=== PATIENT | female | born 1950 | race Caucasian/White ===

== ENCOUNTER → 2017-10-27 00:49 | Outpatient (CLI) | payer MEDICARE, BC, SELFPAY ==
--- NOTE | 2017-10-27 08:50 | DI.REPORT_ITS ---
SYMPTOMS/DIAGNOSIS: SCREENING, Z12.31, PREVENTATIVE CARE, Z00.00 MAMMOGRAM: Mammograms were interpreted according to the usual protocol including computer analysis with CAD system, tomosynthesis and C view imaging. The breasts are of moderate density with fairly symmetrical distribution of fibroglandular tissue. No dominant mass or clumped microcalcification is identified in either breast. The current examination is compared with previous examinations including October 2016 and there has been no gross interval change in appearance in comparison with the previous studies. CONCLUSION: No specific evidence of malignancy at this time. Routine screening examinations are suggested at yearly intervals due to the family history of breast carcinoma. Category I. Breast density Category B. MQSA ASSESSMENT OF FINDINGS: Negative. Category 1. Patient will receive a letter notifying them of these results. BI-RADS category B. There are scattered areas of fibroglandular density.
== END ==
PROVIDERS: PCP Family Medicine; Visit Provider Family Medicine
DX: Z12.31 Encounter for screening mammogram for malignant neoplasm of breast (principal); Z80.3 Family history of malignant neoplasm of breast
CPT/HCPCS: 77063; 77067

== ENCOUNTER → 2018-09-26 13:32 | Outpatient (BNVA) | payer MEDICARE, BC, SELFPAY | PROVIDERS: PCP Family Medicine; Referring Provider Family Medicine; Visit Provider Student in an Organized Health Care Education/Training Program | DX: M16.12 Unilateral primary osteoarthritis, left hip (principal); I10 Essential (primary) hypertension | CPT/HCPCS: 99214 ==

== ENCOUNTER 2018-09-29 01:23 | Outpatient (CLI) | payer MEDICARE, BC, SELFPAY ==
--- NOTE | 2018-09-29 06:57 | DI.RAD_ITS ---
SYMPTOM/DIAGNOSIS: PRIMARY LOCALIZED OSTEOARTHRITIS LT HIP M16.12 FLUOROSCOPY LEFT HIP: Fluoroscopy Time: .04 Fluoroscopy was provided for Dr. Khan for guidance of left hip injection. Hard copy images show a needle projecting from the lateral aspect in to the left hip joint and injection of contrast in to the joint space. Please see procedure note for details.
[2018-09-29] MEDS: Bupivacaine 0.5% Pres-Free 10 ML VIAL 6 ML IJ (09:51)
[2018-09-29] MEDS: Omnipaque 300 MG/ML 10 ML BTL IJ (09:52)
[2018-09-29] MEDS: methylPREDNISolone ACETATE 80 MG/ML VIAL IM (09:53)
--- NOTE | 2018-09-30 08:42 | W.PROCNOTE ---
Date of service: 09/29/18 Time of Service: 09:43 Procedure Note Date of procedure: 09/29/18 Procedure: Left Hip Injection with Fluoroscopic Guidance Surgeon/Proceduralist/Physician: Freddie Khan Procedure Diagnosis: Left Hip Osteoarthritis Procedure Indications: Luna has had persistent pain of the LEFT hip and groin. Noninvasive measures have been tried. To serve as both diagnostic and therapeutic, an injection under fluoroscopy was recommended. I had discussed the risks of the procedure and the patient elected to proceed. Procedure Description: Luna was greeted in the flouroscopy room. The correct side was identified and the consent was reviewed with the patient and signed. The patient was then placed in the supine position on the fluoroscopy table. The LEFT hip was then prepped with Chloraprep. The anterolateral injection starting point was identiifed by bony landmarks and fluoroscopy. The skin and soft tissue in the tract of the injection was anesthetized with 1% Lidocaine. A spinal needle was then inserted deep into the hip joint at the level of the lateral femoral neck under fluoroscopic guidance. A small amount of Omnipaque solution was injected to confirm intraarticular placement. Once confirmed, the hip was injected with 6cc of 0.5% Bupivicaine and 80mg of Depo-Medrol. A bandaid was placed on the injection site. The patient tolerated the procedure well and noted improvement in pre-injection pain.
== END 2018-09-29 01:43 ==
PROVIDERS: PCP Family Medicine; Visit Provider Student in an Organized Health Care Education/Training Program
DX: M16.12 Unilateral primary osteoarthritis, left hip (principal); M25.562 Pain in left knee
CPT/HCPCS: 20610; 77002; J1040

== ENCOUNTER 2018-11-03 15:38 | Outpatient (REF) | payer MEDICARE, BC, SELFPAY ==
[2018-11-03 21:37] LABS: HCT 39.1 % (36.0-46.0); HGB 12.4 g/dL (12.0-15.5)
[2018-11-03 21:56] LABS: Anion Gap 8.2 mmol/L (3-11); BUN 19 mg/dL (7-18); CO2 28.8 mmol/L (21.0-32.0); CREATININE 0.99 mg/dL (0.55-1.02); Calcium 8.6 mg/dL (8.5-10.1); Chloride 107 mmol/L (98-107); Estimated GFR 55.45 (mL/min/1.73m2); Glucose 75 mg/dL (70-100); Potassium 4.4 mmol/L (3.5-5.1); Sodium 144 mmol/L (136-145); TSH (W/Ref FT4) 1.27 uIU/mL (0.36-3.74)
== END 2018-11-03 15:58 ==
LOC: NCHCN 15:38
PROVIDERS: PCP Family Medicine; Visit Provider Family Medicine
DX: I10 Essential (primary) hypertension (principal)
CPT/HCPCS: 80048; 84443; 85014; 85018

== ENCOUNTER 2018-11-28 00:25 | Outpatient (CLI) | payer MEDICARE, BC, SELFPAY ==
--- NOTE | 2018-11-28 12:16 | DI.MAMMO_ITS ---
EXAM: MG MAMMO SCREENING CLINICAL HISTORY: SCREENING , [facility] Z00.00. TECHNIQUE: Mammograms were interpreted according to the usual protocol including computer analysis w PowerPractical CAD system, tomosynthesis and C-view imaging. COMPARISON: No exams were available for comparison FINDINGS: The breast tissue is of moderate radiodensity. There is no dominant mass. There are no suspicious ca lcifications and there has been no interval change when compared with the prior examination. IMPRESSION: No evidence of malignancy, category 1, yearly screening mammography is recommended. Breast density c ategory B BI-RADS Cat 1 - Negative Breast Density - Category B - Scattered areas of fibroglandular density
== END 2018-11-28 00:45 ==
PROVIDERS: PCP Family Medicine; Visit Provider Family Medicine
DX: Z12.31 Encounter for screening mammogram for malignant neoplasm of breast (principal)
CPT/HCPCS: 77063; 77067

== ENCOUNTER 2018-12-09 08:39 | Outpatient (CLI) | payer MEDICARE, BC, SELFPAY ==
--- NOTE | 2018-12-09 08:21 | DI.RAD_ITS ---
EXAM: XR PELVIS AP INDICATION: pre ARIEL planning. COMPARISON: RT HIP COMPLETE AP PELVIS from 11/29/2015 TECHNIQUE: 2D digital imaging was performed. FINDINGS: AP view of the hips and pelvis was obtained. There is marked loss of cartilaginous joint spaces of b oth hips with very prominent hypertrophic acetabular changes and associated femoral head hypertrophic osteophytes noted as well. Greater trochanters of the femurs also show osteophyte formation. There is subchondral sclerosis and cyst formation of the acetabula and femoral heads. IMPRESSION: Severe DJD both hips.
== END 2018-12-09 08:59 ==
PROVIDERS: PCP Family Medicine; Referring Provider Family Medicine; Visit Provider Student in an Organized Health Care Education/Training Program
DX: M25.551 Pain in right hip (principal); M25.552 Pain in left hip; M16.0 Bilateral primary osteoarthritis of hip
CPT/HCPCS: 99213; 72170

== ENCOUNTER 2018-12-21 15:13 | Outpatient (REF) | payer MEDICARE, BC, SELFPAY | END 2018-12-21 15:33 | LOC: NCHCN 15:13 | PROVIDERS: PCP Family Medicine; Visit Provider Physician Assistant Medical | DX: N76.0 Acute vaginitis (principal) | CPT/HCPCS: 87480; 87510; 87660 ==

== ENCOUNTER 2019-01-17 12:48 | Outpatient (CLI) | payer MEDICARE, BC, SELFPAY ==
[2019-01-17 14:16] LABS: HGB 12.6 g/dL (12.0-15.5); Mean Corp. HGB Concentration 30.7 g/dL (32.0-36.0); Mean Corpuscular Hemoglobin 28.1 pg (27.0-33.0); Mean Corpuscular Volume 91.3 fL (80-95); Mean Platelet Volume 9.7 fL (8.0-11.0); Platelet Count 245 x1000/uL (130-400); RBC 4.49 m/cumm (4.00-5.20); RBC Distribution Width 13.7 % (11.7-14.6); White Blood Cell Count 6.02 k/cumm (4.4-10.8)
[2019-01-17 15:17] LABS: BUN 16 mg/dL (7-18); CREATININE 1.09 mg/dL (0.55-1.02); Calcium 8.7 mg/dL (8.5-10.1); Chloride 106 mmol/L (98-107); Estimated GFR 49.62 (mL/min/1.73m2); Glucose 96 mg/dL (70-100); Sodium 141 mmol/L (136-145)
== END 2019-01-17 13:08 ==
PROVIDERS: PCP Family Medicine; Visit Provider Student in an Organized Health Care Education/Training Program
DX: M16.12 Unilateral primary osteoarthritis, left hip (principal); I10 Essential (primary) hypertension; R06.02 Shortness of breath; Z01.818 Encounter for other preprocedural examination
CPT/HCPCS: 36415; 80048; 85027; 86850; 86900; 86901

== ENCOUNTER 2019-01-25 10:14 | Inpatient (IN) | payer MEDICARE, BC, SELFPAY ==
--- NOTE | 2019-01-17 17:34 | CMPROGNOTE_ITS ---
- If Service Date Differs Date of service: 01/17/19 Time of Service: 17:34 Care Management Progress Note JESÚS met with Luna at her pre op appointment for a total L Hip replacement by Dr. Khan, scheduled for 01/25/2019. She reported that she has been having a lot of pain which has made it difficult to walk, which is how she gets her exercise. Luna lives in [place] with her , Jarod. Their home is a single level with 2-3 steps up from the garage into the home. They have a shower bench, but not a raised toilet. They have two adult daughters, Taylor and Martha, who live locally and are identified by Luna as very supportive. 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 She is independent at baseline with no current services in the community. Luna's PCP is Lolly Narvaez MD, at [facility]. She has [facility] and [employer] for insurance. She currently has use of a FWW, which was used by her elderly parents before they passed. CM recommended that her bring the walker in the day after her surgery for it to be cleared by PT. She has an advanced directive on file, with her listed as agent. CM told her about the Portal, which she declined. Her will transport her via private vehicle to and from [facility].
[2019-01-25] VITALS (18 sets, daily range): BP systolic 114–153; BP diastolic 52–82; PULSE 64–83; RESP 15–20; TEMP 36–36.9; O2SAT 91–97
[2019-01-25] MEDS: Lactated Ringers 1,000 ML 80 ML IV ×3 (06:45→23:00)
[2019-01-25] MEDS: Celecoxib 200 MG CAP 400 MG PO (06:52)
[2019-01-25] MEDS: Acetaminophen 500 MG TAB 1000 MG PO ×3 (06:52→20:04)
--- NOTE | 2019-01-25 07:15 | DI.RAD_ITS ---
EXAM: XR HIP LT IN OR CLINICAL HISTORY: OA LEFT HIP. TECHNIQUE: 2D and realtime digital imaging was performed. COMPARISON: No exams were available for comparison FINDINGS: Fluoroscopy was provided for Dr. Khan in the OR. A single hard copy image shows placement of a left hip prosthesis. The components appear well aligned. FLUORO TIME: 31.8 seconds
[2019-01-25] MEDS: ceFAZolin 2 GM/50 ML BAG IVPB (07:50)
[2019-01-25] MEDS: Bupivacaine 0.25% Pres-Free 30 ML VIAL (08:25)
[2019-01-25] MEDS: Ketorolac 30 MG/ML VIAL (08:25)
[2019-01-25] MEDS: Normal Saline 20 ML VIAL (08:45)
--- NOTE | 2019-01-25 10:14 | ROE_ITS ---
Date of service: 01/25/19 Time of Service: 10:14 Operative Note Operative Note DATE OF PROCEDURE: 01/25/19 PRE-OP DIAGNOSIS: Left Hip Osteoarthritis POST-OP DIAGNOSIS: same PROCEDURE: Left Anterior Total Hip Arthroplasty SURGEON: Freddie Khan FO[employer] SERVICE WORK[employer] [facility]: [facility] ANESTHESIA: spinal ESTIMATED BLOOD LOSS: 300 PATHOLOGY: none sent COMPLICATIONS: None Patient was transported to: PACU Patient's condition: stable Implants: 1. Depuy [place] Acetabular Component, 52mm 2. Depuy Acetabular Liner, 98y07ml 3. Depuy Corail Coxa Vara Femoral Stem, Size 12 4. Depuy Altrx Ceramic Femoral Head, Size 36+5mm Indications: I have seen Luna in clinic for symptoms of hip arthritis, confirmed with radiographic findings. Luna has exhausted nonoperative methods and was having significant limitations in daily function and desired better function and less pain. I discussed the technical details of a hip replacement. I explained the risks of the procedure to include, but not limited to, bleeding, infection, pain, stiffness, fracture, damage to nerves and vessels, damage to muscles and tendons, loosening, instability, leg length inequality, need for repeat procedure, blood clot and cardiopulmonary demise. Despite these risks, she elected to proceed. Findings: There was significant signs of arthritis throughout the hip. There were acetabular and lateral neck osteophytes. Procedure Description: Luna was greeted in the preoperative holding area where the correct side was identified and marked. The consent was reviewed with the patient and signed. The history and physical was updated. All questions were answered. Luna was taken back to the operating room. A spinal anesthestic was then administered. The patient was placed into the supine position on the operating room table. The patient was then positioned onto the ARCH table. Both feet were wrapped with Webrill cotton wrap along with Coban. The feet were placed in specialized boots for the ARCH table, well seated within the boot and secured. SCDs were applied. The patient was then slid down onto a peroneal post and the nonoperative leg was secured in a leg champagne attached to the table. The operative side was placed into the ARCH table attachment and bed height and positioning was secured. A preoperative AP pelvis was obtained to serve as a reference for determining leg lengths. Prophylactic antibiotics in the form of Cefazolin were administered. 1g of Tranxemic Acid was given intravenously within 30 minutes of incision. The left leg was then prepped with Chloraprep and draped in a standard fashion. A second prep was performed prior to placing the final shower-curtain type drape with Iodine impregnated skin protection. A timeout to confirm correct identity, side and site, procedure, allergies, anesthesia, and medical concerns was performed. An obliquely oriented incision was made starting lateral to the ASIS and running distal over the Tensor Fascia Ching (TFL) muscle belly toward the fibular head, approximately 10cm. The skin and soft tissue was dissected sharply, through Rosa?s fascia, and to the fascia of the TFL. With the fascia and superior border of the IT band identified, the fascia was incised with a new knife just above any perforators from the IT band. The TFL muscle belly was bluntly dissected away from the fascia and moved laterally. The fat between TFL and rectus was identified to ensure the dissection was not within the TFL. Blunt dissection created space between abductors and the capsule and retractor was placed over the lateral femoral neck. The fibers of the rectus femoris tendon were identified and these were freed from the anterior capsule. A second cobra retractor was placed around the medial femoral neck. The TFL was further retracted laterally to show the deep fascia. Careful dissection through this layer identified three main crossing vessels of the lateral femoral circumflex. These were cauterized in multiple locations and then cut without any noticeable bleeding. The TFL was further released bluntly from the deep fascia to expose anterior hip capsule and fat The Loi orthopaedic retractor was then placed beneath the TFL and against sartorius and medial soft tissues to protect and retract the soft tissues. A T-capsulotomy was then performed starting at the superior lateral acetabulum and moving distally to the intertrochanteric ridge. These capsular flaps were tagged with a No. 1 Ethibond and elevated from within. The capsular flaps were released to the shoulder of the lateral neck and to the lesser trochanter to give excellent visualization of the proximal femur. A neck osteotomy was performed using an oscillating saw based on preoperative templates. This cut started in the shoulder and of the lateral neck and exited medially. The saw was at all times directed medially to avoid injury to the greater trochanter. 6cm of traction was applied to the leg and the osteotomy opened. The femoral head was removed with a corkscrew, making sure to protect the TFL on its exit. This was measured on the back table to determing the starting reamer size. Portions of the rectus obscuring visualization were minimally elevated off the superior acetabulum. An anterior retractor was placed over the anterior wall between capsule and labrum and held with the Gripper retraction system. A posterior retractor was placed similarly. This provided excellent visualization. The contents of the cotyloid fossa were removed with electrocautery and the labrum was removed with a knife. There was a notable floor osteophyte. There was significant chondromalacia of the superior acetabulum. Acetabular reaming began with a 46mm reamer. This first reaming was directed anterior to posterior and medial to get down to the true floor. This was inspected and reamed until the true floor was reached. I then reamed sequentially up to a 52mm reamer where good fit was obtained. The larger reamers were oriented based on anatomical reference of the anterior and lateral reed to ensure proper abduction and anteversion. Positioning and size was confirmed with the fluoroscopy. A 52mm Depuy [place] acetabular component was selected. The deep tissues were irrigated. The acetabular component was then impacted in a position of about 40-45 degrees of abduction and 15-20 degrees of anteversion, using the patient?s anatomy as the ultimate landmark. Fluoroscopy was used to confirm this. There was excellent camera repairman of the acetabular component and the inserting handle was removed. The acetabular liner, Depuy [id number] polyethylene liner, was inserted and lined up with the tines of the acetabular component. There was no soft tissue interposition. The liner was then impacted into position and confirmed to be well-seated. A portion of the desiree-articular cocktail was then injected around the acetabulum into the capsule and periosteum. This cocktail consisted of 50cc of 0.25% Bupivicaine and 20cc of Exparel, expanded to a total of 120cc. Traction was released from the femur. The leg was rotated to 120 degrees. Any remaining medial capsule was released until the lesser trochanter was easily pal pable. A Ramos retractor was placed medially. The lateral capsule was further released into the shoulder to allow access to the greater trochanter. A Ramos retractor was placed over the greater trochanter which allowed the trochanter to flip in front of the capsule for excellent exposure. The leg was brought down into maximal extension and 20 degrees of adduction while ensuring there was no impingement on the acetabulum. Any remnant capsule within the trochanter was released. Piriformis and obturator externis were identified and protected. There was excellent access to the proximal femur. The lateral neck remnant was removed with a rongeur. A blunt canal probe was used to identify the canal and trajectory for later broaching. A box osteotome initiated the broach course. A small curved rasp and a curved curette were used to work laterally. Broaching then began with a size 8 Corail broach. This was inserted manually around the trochanter and into the canal before mallet blows. The broach was seated to the neck cut level based on the neck cut and the preoperative template. It seems that the initial cut was angled from anterior to posterior, being of appropriate height anteriorly but slightly over cut posteriorly. I decided to reference the anterior cortex leaving the posterior side proud. Sequential broaching was continued until a tight fit was obtained with good rotational control of the femur. A trial coxa vara neck was inserted along with a +5 trial head. The leg was brought out of extension and adduction and then reduced with traction and internal rotation. The leg was stable anteriorly in a position of 30 degrees of extension and 90 degrees of external rotation. Fluoroscopy was used to ensure there was no fracture and the stem was seated well. Leg lengths were checked with an AP pelvis and pelvic reference points. Joint point was utilized to help confirm appropriate leg length and offset. Once content with the desired offset and leg lengths, the leg was brought back into extension, external rotation and adduction. The periosteum and surrounding tissue was injected with remaining portion of the desiree-articular cocktail. The proximal femur was irrigated as well as the deep tissues. The Depuy Corail coxa vara stem, size 12, was then manually inserted into the proximal femur making sure to control rotation. It was then malleted into position with light blows, giving breaks to allow bone expansion and decrease risk of fracture. The selected Depuy Altrx Ceramic Head, size 36+5mm, was then placed onto the clean and dry trunnion and secured with impaction onto the tapered fit. The leg was brought back out of extension and adduction and reduced with traction and internal rotation. Stability was confirmed with no shuck at 90 degrees of external rotation and 30 degrees of extension. No impingement through range of motion arc. Final x-ray images were obtained with fluoroscopy to confirm adequate positioning and no intraoperative fracture. The deep tissues were thoroughly irrigated with a pulse lavage. The second dose of TXA 1g was administered intravenously. The capsule was then reapproximated with the previously placed Ethibond sutures. The TFL fascia was finally closed with a No. 2 Stratafix, barbed suture. Deep tissues were then reapproximated with 0 Vicryl and a running 2-0 Vicryl. The skin was closed with a running 4-0 Monocryl in a subcuticular fashion. This was reinforced with skin glue. A Mepilex silver dressing was applied. At the end of the case, all counts were correct. Luna was transferred to the hospital bed without difficulty and suffering no apparent complication. Luna has a good prognosis. Physical therapy will start today and without restrictions, weight-bearing as tolerated. Aspirin 81mg BID will be used for DVT prophylaxis.
[2019-01-25] MEDS: HYDROmorphone 2 MG/ML VIAL IVP ×2 (10:28→10:40)
[2019-01-25] MEDS: Normal Saline Flush 10 ML SYR IV (10:29)
[2019-01-25] MEDS: ceFAZolin 1 GM/50 ML BAG IVPB ×2 (14:02→21:58)
--- NOTE | 2019-01-25 14:37 | PT.INIE ---
Date of service: 01/25/19 Time of Service: 14:37 PT Notes Physical Therapy Inpatient Initial Evaluation Date: 01/25/2019 Referring Doctor: Freddie Khan MD PT Orders: PT CONSULT: S/P ortho surgery. S/P L anterior ARIEL Precautions: Fall. Standard. WBAT on L LE. Patient Profile/Admitting Diagnosis: Patient is a 68-year-old female status post left anterior total hip arthroplasty due to unilateral osteoarthritis of left hip on POD 0. PMHX: Hypertension (Chronic) Social History/Home Situation: Patient lives with in a ranch-style home with 2 steps to enter, rail on the L going up. 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 She is independent with all aspects of ADLs prior to surgery. Equipment Owned/DME: Standard walker Subjective: Patient is agreeable to a PT consult. She is pleasant and cooperative. She did mention still being numb on her R buttock area. She reported getting dizzy after walking some 20 feet of in-room distance with FWW. Dizziness abated once she rested back in bed. Denies headache and chest pain throughout PT consult. Objective: General Observation: Patient seen resting in bed. and daughter were present during PT consult. Mepilex Ag over surgical incision. Goff catheter in place. Spinal anesthesia puncture seen. Mental Status: Alert and oriented x 4 Pain: Reported mild aching pain on the L hip with strength testing ROM: Right Upper Extremity: Shoulder Flexion WFL. Shoulder abduction WFL. Elbow flexion WFL. Wrist flexion WFL. Opening and closing of hand WFL. Left Upper Extremity: Shoulder Flexion WFL. Shoulder abduction WFL. Elbow flexion WFL. Wrist flexion WFL. Opening and closing of hand WFL. Right Lower Extremity: Hip flexion WFL. Hip abduction WFL. Knee flexion WFL. Ankle dorsiflexion WFL. Ankle plantarflexion WFL. Left Lower Extremity: Hip flexion WFL. Hip abduction WFL. Knee flexion WFL. Ankle dorsiflexion WFL. Ankle plantarflexion WFL. Strength: Right Upper Extremity: Shoulder flexors 5/5. Shoulder abductors 5/5. Elbow flexors 5/5. Elbow extensors 5/5. Postal Delivery Officer strong. Left Upper Extremity: Shoulder flexors 5/5. Shoulder abductors 5/5. Elbow flexors 5/5. Elbow extensors 5/5. Postal Delivery Officer strong. Right Lower Extremity: Hip flexors 5/5. Hip abductors 5/5. Knee flexors 5/5. Knee extensors 5/5. Ankle dorsiflexors 5/5. Ankle plantarflexors 5/5. Left Lower Extremity:Hip flexors 4/5. Hip abductors 4/5. Knee flexors 4/5. Knee extensors 4/5. Ankle dorsiflexors 5/5. Ankle plantarflexors 5/5. Bed Mobility/Transfers: Rolling CGA Supine to sit CGA Sit to supine CGA Sit to stand CGA Stand to sit CGA Bed to chair CGA Chair to bed CGA Gait: Patient was able to tolerate in-room level surface ambulation with step-to gait pattern using 4 wheeled walker with CGA and IV pole management of this PT. Daughter provided assistance with wheelchair follow. Verbal cues given for safe gait pattern and walker management. L LE in good alignment. No report of instability on L hip/knee. Karin decreased. Step height on L decreased. Patient reported dizziness toward the end of the 20-feet walk at which time she was advised to sit down on wheelchair to rest. She then was again able to pond seated exercises and to walk about 10 feet more to bedside to lie back down. Dizziness subsided once she was in bed. Nurse was updated about patient response to gait activity. Balance: Static Sitting: Normal Dynamic Sitting: Normal Static Standing: Fair Dynamic Standing: Fair Special Tests: Mobility Limitations Standardized Measure [facility] AM-PAC 6 clicks Basic Mobility Inpatient Short Form: Raw Score: 18 CMS Score: 47 % deficit Informed Consent/Education: Patient instructed in purpose of PT consult and plan of care. She was also trained on doing muscle setting exercises for bilateral quadriceps and gluteal muscles as well as on doing long arc quads and heel-toe raises while sated on wheelchair. She was advised to these exercises every hour for 10 reps. Assessment: Patient is a cognitively intact 68-year-old female status post left anterior total hip arthroplasty due to unilateral osteoarthritis of left hip on POD 0. She is motivated to return to her premorbid independent level. She has a very supportive family. Her prognosis for regaining independent mobility level is good. Patient presents with clinical signs and symptoms consistent with current/admitting diagnoses that have resulted to mobility limitations, gait instability, generalized weakness, and impairment of motor control as demonstrated by the following impairment level findings: 1. Decreased strength to L hipmajor muscle groups 2. Impaired standing balance 3. Impaired activity tolerance 4. Limitation of joint range of motion in L hip Impairments are contributing to the following functional limitations: 1. Dependent bed mobility skills 2. Increased dependence with transfers 3. Inability to safely ambulate without assistive device and physical assistance 4. Increase completion time for mobility ADL performance 5. Increased fall risk 6. Inability to negotiate steps alone safely Patient is assessed as a [id number] moderate complexity based on the following: History: Patient is a 68-year-old female status post left anterior total hip arthroplasty due to unilateral osteoarthritis of left hip on POD 0. Examination: Demonstrable impairment in strength, balance, and range of motion with underlying impairments and functional limitations as documented above Presentation: Evolving Decision Makin moderate complexity Goals: Goals X1 week 1. Supine-Sit independent 2. Sit-Supine independent 3. Sit-Stand independent 4. Stand-Sit independent 5. Bed-Chair independent 6. Chair-Bed independent 7. Independent gait on level surface with use of least restrictive device for at least 300 feet without report of pain nor dyspnea 8. Independent stair negotiation while holding onto bilateral rails for at least 3 steps without report of pain nor dyspnea 9. Independent with home exercise program 10. Good static and dynamic standing balance/tolerance Plan of Care/Treatment Plan: 1-2x/day, 7 days/week x 1 week. Plan of care has been reviewed with the GROUNDSKEEPING MAINTENANCE WORKER providing the service under Physical Therapy direction. Initiate Physical Therapy intervention for strengthening, bed mobility, transfers, gait, stairs, balance training, use of assistive device. DISCHARGE RECOMMENDATIONS: Patient will benefit from use of front-wheeled walker to facilitate indpendence with all transfers and ambulation. May benefit from skilled physical therapy services according to orthopedic surgeon's timeline recommendations. Patient will be educated and trained on home exercise program per ARIEL exercise protocol in preparation for outpatient physical therapy services. TREATMENT CODE/TIME: 59969 x 25 minutes, 69968 x 13 minutes beginning at 14:37 PM. Thank you very much for this referral. Sana Lamb PT, DPT, CLT [facility]
[2019-01-25] MEDS: Aspirin E.C. 81 MG TABEC PO (20:04)
[2019-01-25] MEDS: Celecoxib 200 MG CAP PO (20:04)
[2019-01-26 04:10] VITALS: BP 139/79; PULSE 70; RESP 16; TEMP 36.6; O2SAT 95
[2019-01-26] MEDS: Normal Saline Flush 10 ML SYR IV (05:19)
[2019-01-26] MEDS: HYDROmorphone 2 MG/ML VIAL 0.5 MG IVP (05:20)
[2019-01-26] MEDS: ceFAZolin 1 GM/50 ML BAG IVPB (05:25)
[2019-01-26 07:27] VITALS: BP 159/80; PULSE 74; RESP 17; TEMP 36.6; O2SAT 96
[2019-01-26] MEDS: Lisinopril 20 MG TAB PO (08:32)
[2019-01-26] MEDS: Pantoprazole 40 MG TABCR PO (08:33)
[2019-01-26] MEDS: Acetaminophen 500 MG TAB 1000 MG PO (08:33)
[2019-01-26] MEDS: Celecoxib 200 MG CAP PO (08:33)
[2019-01-26] MEDS: Calcium 600mg/Vit D 200U TAB 1 TAB PO (08:33)
[2019-01-26] MEDS: Aspirin E.C. 81 MG TABEC PO (08:33)
[2019-01-26 11:27] VITALS: BP 145/85; PULSE 56; RESP 17; TEMP 36.2; O2SAT 96
--- NOTE | 2019-01-26 12:04 | DSE_ITS ---
Date of service: 01/26/19 Time of Service: 08:05 DS: Diagnosis Discharge Diagnosis (1) Primary localized osteoarthritis of left hip: Status: Acute Discharge Plan Disposition Patient Disposition: HOME Condition: Good Discharge Details Reason For Visit: LEFT HIP DJD Admit Date/Time: 01/25/19 10:14 Admit Provider: Freddie Antoine Attending Provider: Freddie Antoine Primary Care Provider: Lolly Oliveira V Hospital Course Hospital Course: Patient was admitted to the medical/surgical floor following the procedure. It was tolerated well without any notable medical, surgical, or anesthetic complications. Mobilization began postoperatively. The rosado catheter was removed and voiding spontaneously. Vitals were stable. Physical therapy worked with the patient and was cleared for discharge home. No acute medical issues. Home Meds and New Rx's Prescriptions: New acetaminophen 500 mg tablet 1,000 mg PO Q8H PRN (Reason: pain) Qty: 90 RF: 3 celecoxib 200 mg capsule 200 mg PO BID PRN (Reason: pain) Qty: 60 RF: 1 aspirin 81 mg tablet,delayed release (DR/EC) 81 mg PO BID Qty: 60 RF: 0 oxycodone 5 mg tablet 5 mg PO Q6H Qty: 8 RF: 0 pantoprazole 40 mg tablet,delayed release (DR/EC) 40 mg PO DAILY Qty: 30 RF: 0 Continued turmeric root extract 500 mg capsule 500 mg PO DAILY RF: 0 lisinopril 20 MG tablet 20 mg PO DAILY RF: 0 calcium carbonate-vitamin D3 1 EACH tablet 1 ea PO DAILY RF: 0 Discontinued aspirin [Aspir-81] 81 MG tablet,delayed release (DR/EC) 81 mg PO DAILY RF: 0 ibuprofen 600 mg Tablet 600 mg PO Q8H PRNRF: 0 Discharge Instructions Additional Instructions: Dr. Antoine?s Total Hip Discharge Instructions Activity: The most important activity is to walk. You should try to take short walks a few times a day. You have no restrictions on movement or positioning, but do not try to force what you do. You will find some stiffness and weakness with hip flexion (lifting your knee). Do not try to strengthen this too early, continue to practice walking and stairs and this will come. - Outpatient physical therapy can be helpful to help return you to a normal gait and improve your flexibility and strength. This can start around 2 weeks. For some patients, it?s not necessary. Usually this is determined at the time of discharge or at the first post-operative visit. - You should wear the LOUANN hose on both legs for 2 weeks. Dressing: Keep the surgical dressing in place for at least one week. After the first week it may be removed and replace with light gauze and tape or nothing. It may get wet after 3 days but avoid soaking the dressing. If it gets wet, just lightly pat dry. It is important to always keep some gauze between skin folds, especially when you are sitting. Spend some time with the wound exposed when you are lying flat as the incision does wrinkle onto itself. Medications: - You should take Tylenol and an anti-inflammatory Celebrex as your primary pain control medications - You have been prescribed a stronger pain medication Oxycodone for breakthrough pain, take as needed as prescribed. - You have also been prescribed a stomach acid reduction agent Pantoprozole to help reduce stomach acid and reflux. - You will be taking Aspirin 81mg twice a day for DVT prevention unless instructed otherwise. - If you have constipation you should take Colace or Miralax (both [id number]). It takes most people 3-4 days to have a bowel movement. Follow-up: 2 weeks Referrals: Freddie Antoine MD [ [facility] STAFF PHYSICIAN] - Activity:: Activity as Tolerated Equipment/Supplies:: Walker Diet:: As Tolerated Discharge Orders Discharge Orders: Discharge Order (Routine); Ordered 01/26/19 Ordered By: Freddie Antoine DS: Summary Status at Discharge Functional status at discharge: uses cane/walker Overall status at discharge: patient is progressing back to baseline Mental Status: mental status grossly normal Speech and Movement: speech and movement normal Mood: congruent mood Affect: normal affect Exam Psych Mental Status: mental status grossly normal Speech and Movement: speech and movement normal Mood: congruent mood Affect: normal affect DS: Data Vitals/I&O Vitals and I&O: Vital Signs Temperature 36.6 C 01/26/19 07:27 Temperature Source Tympanic 01/26/19 07:27 Pulse 74 01/26/19 07:27 Pulse Rhythm Regular 01/26/19 10:11 Respiratory Rate 17 01/26/19 07:27 Respiratory Effort 01/26/19 10:11 Respiratory Depth Normal 01/26/19 10:11 Respiratory Pattern Normal 01/26/19 10:11 Blood Pressure 159/80 H 01/26/19 07:27 Pulse Oximetry 96 01/26/19 07:27 Respiratory End-tidal CO2 33 01/25/19 11:26 Oxygen Delivery Method Room Air 01/26/19 07:27 Oxygen Flow Rate 0 01/26/19 07:27 Pain Level 2 01/26/19 08:33 Intake & Output 01/25/19 01/26/19 01/26/19 23:59 11:59 23:59 Intake Total 1020.000 / 2110.000 1250 / 1250 Output Total 750 / 1300 1625 / 1625 Balance 270.000 / 810.000 -375 / -375 Intake: IV 1020.000 / 6112.668 1179 / 1050 Oral 200 / 200 Output: Urine 750 / 1000 1625 / 1625 Other: Urine Color Light Nayeli Pale Yellow Urine Appearance Clear Clear Urine Odor None Comment Confirm dr antoine has dc'd the order. Explain technique to patient. Balloon is deflated and catheter is removed, patient is cleaned and made comfortable, she is left with call [place] in reach Voiding Methods Toilet FORMERLY [facility], [facility] Social History Smoking/Tobacco Use Status: Never Drug use: Never
--- NOTE | 2019-01-26 12:14 | PTTR_ITS ---
Date of service: 01/26/19 Time of Service: 12:14 PT Notes Inpatient Physical Therapy Treatment Note [facility] Date: 01/26/2019 PRECAUTIONS: Fall, WBAT L SUBJECTIVE: Thais is agreeable to participating in PT this morning. She states that she was up walking during the night, stating it feels better to be walking than lying in bed. OBJECTIVE: Patient is found performing ADLs in bathroom, independently. PAIN: No complaints of pain BED MOBILITY/TRANSFERS Supine-sit: I with HOB flat Sit-supine: I with HOB flat Sit-stand: I Stand-sit: I Bed?chair: I Chair?bed: I GAIT Assistive Device: FWW Weight bearing: WBAT L Assist: S Distance: 250' THEREX: Patient completed a lower extremity strengthening and stabilization program, in a supine position, as per flow sheet. She ends with cryocuff to L knee. STAIRS: Up/down 3x4 and 2x6 using 1 rail/WIDE [employer]WORK SYSTEMS ADMINISTRATOR and a step-to pattern with supervision ASSESSMENT: Patient tolerated session without complaint. She was able to tolerate a progression in gait distance with FWW support and supervision. PLAN: As per primary PT TREATMENT CODE/TIME: 30 minutes; 52925, [id number]
--- NOTE | 2019-01-26 13:12 | CHAPLAIN ---
Luna was sitting up in her room and told me about her surgery. She was pleasant and easily engaged in conversation. She expects to be discharged soon. Her was with her and seems very supportive.
--- NOTE | 2019-01-27 11:27 | PT.INDS ---
Date of service: 01/27/19 Time of Service: 11:27 PT Notes Inpatient Physical Therapy Discharge Summary Dates: 01/27/2019 Dates of Service: 01/25/2019 and 01/26/2019 This is a clinical summary of care provided on the duration of dates listed above. No charge was made in the completion of this documentation. Referring Doctor: Freddie Khan MD PT Orders: PT CONSULT: S/P ortho surgery. S/P L anterior ARIEL Precautions: Fall. Standard. WBAT on L LE. Patient Profile/Admitting Diagnosis: Patient is a 68-year-old female status post left anterior total hip arthroplasty due to unilateral osteoarthritis of left hip. PMHX: Hypertension (Chronic) Social History/Home Situation: Patient lives with in a ranch-style home with 2 steps to enter, rail on the L going up. 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 She is independent with all aspects of ADLs prior to surgery. Equipment Owned/DME: Standard walker Subjective: NT Objective: General Observation: NT Mental Status: NT Pain: NT ROM: Right Upper Extremity: Shoulder Flexion WFL. Shoulder abduction WFL. Elbow flexion WFL. Wrist flexion WFL. Opening and closing of hand WFL. Left Upper Extremity: Shoulder Flexion WFL. Shoulder abduction WFL. Elbow flexion WFL. Wrist flexion WFL. Opening and closing of hand WFL. Right Lower Extremity: Hip flexion WFL. Hip abduction WFL. Knee flexion WFL. Ankle dorsiflexion WFL. Ankle plantarflexion WFL. Left Lower Extremity: Hip flexion WFL. Hip abduction WFL. Knee flexion WFL. Ankle dorsiflexion WFL. Ankle plantarflexion WFL. Strength: Right Upper Extremity: Shoulder flexors 5/5. Shoulder abductors 5/5. Elbow flexors 5/5. Elbow extensors 5/5. Pasting Machine Operator strong. Left Upper Extremity: Shoulder flexors 5/5. Shoulder abductors 5/5. Elbow flexors 5/5. Elbow extensors 5/5. Pasting Machine Operator strong. Right Lower Extremity: Hip flexors 5/5. Hip abductors 5/5. Knee flexors 5/5. Knee extensors 5/5. Ankle dorsiflexors 5/5. Ankle plantarflexors 5/5. Left Lower Extremity:Hip flexors 4/5. Hip abductors 4/5. Knee flexors 4/5. Knee extensors 4/5. Ankle dorsiflexors 5/5. Ankle plantarflexors 5/5. Bed Mobility/Transfers: Rolling independent Supine to sit independent Sit to supine independent Sit to stand independent Stand to sit independent Bed to chair independent Chair to bed independent Gait: Patient was able to tolerate level surface ambulation with step-through gait pattern for 250 feet requiring supervision assist using 4 wheeled walker. L LE continues to be in good alignment. No report of instability on L hip/knee. Karin increased. Step height on L increased. Patient denied dizziness, headache, and chest pain. Balance: Static Sitting: Normal Dynamic Sitting: Normal Static Standing: Fair Dynamic Standing: Fair Assessment: Patient is a cognitively intact 68-year-old female status post left anterior total hip arthroplasty due to unilateral osteoarthritis of left hip. She is motivated to return to her premorbid independent level. She has a very supportive family. Her prognosis for regaining independent mobility level is good. patient demonstrated improvement in mobility performance for this episode of care. Patient continues to present no with clinical signs and symptoms consistent with current/admitting diagnoses that have resulted to mobility limitations, gait instability, generalized weakness, and impairment of motor control as demonstrated by the following impairment level findings: 1. Decreased strength to L hipmajor muscle groups 2. Impaired activity tolerance 3. Limitation of joint range of motion in L hip Impairments continue to contribute to the following functional limitations: 1. Inability to safely ambulate without assistive device and physical assistance 2. Increase completion time for mobility ADL performance 3. Increased fall risk Goals: Goals X1 week 1. Supine-Sit independent MET 2. Sit-Supine independent MET 3. Sit-Stand independent MET 4. Stand-Sit independent MET 5. Bed-Chair independent MET 6. Chair-Bed independent MET 7. Independent gait on level surface with use of least restrictive device for at least 300 feet without report of pain nor dyspnea NOT MET 8. Independent stair negotiation while holding onto bilateral rails for at least 3 steps without report of pain nor dyspnea. NOT MET 9. Independent with home exercise program MET 10. Good static and dynamic standing balance/tolerance NOT MET DISCHARGE RECOMMENDATIONS: Patient will benefit from use of front-wheeled walker to facilitate indpendence with all transfers and ambulation. May benefit from skilled physical therapy services according to orthopedic surgeon's timeline recommendations. Patient will be educated and trained on home exercise program per ARIEL exercise protocol in preparation for outpatient physical therapy services. TREATMENT CODE/TIME: MO. Thank you very much for this referral. Sana Lamb PT, DPT, CLT [facility]
== END 2019-01-26 13:22 | disposition home or self-care (01) | DRG 470 ==
PROVIDERS: Admitting Provider Student in an Organized Health Care Education/Training Program; PCP Family Medicine; Visit Provider Student in an Organized Health Care Education/Training Program
PROC: 0SRB04A Replacement of Left Hip Joint with Ceramic on Polyethylene Synthetic Substitute, Uncemented, Open Approach (ICD-10-PCS; CPT 27130; principal; 2019-01-25 07:30)
DX: M16.12 Unilateral primary osteoarthritis, left hip (principal); M25.552 Pain in left hip; Z96.642 Presence of left artificial hip joint
CPT/HCPCS: 27130; 97110; 97162; 97530; NC; 73501; J0690; J1885; J2250; J3010

== ENCOUNTER 2019-02-09 11:04 | Outpatient (CLI) | payer MEDICARE, BC, SELFPAY ==
--- NOTE | 2019-02-09 11:15 | DI.RAD_ITS ---
EXAM: XR HIP LT COMPLETE AP PELVIS INDICATION: 1ST POST OP. COMPARISON: XR PELVIS AP from 12/09/2018 XR HIP LT IN OR from 01/25/2019 TECHNIQUE: 2D digital imaging was performed. FINDINGS: Patient is status post placement of a left hip prosthesis. There has been no change in the alignmen t when compared with the intraoperative image. No abnormal bony lucencies are seen. Moderate degene rative changes are noted in the right hip.
== END 2019-02-09 11:24 ==
PROVIDERS: PCP Family Medicine; Referring Provider Family Medicine; Visit Provider Student in an Organized Health Care Education/Training Program
DX: Z96.642 Presence of left artificial hip joint (principal); Z47.1 Aftercare following joint replacement surgery; M16.11 Unilateral primary osteoarthritis, right hip; I10 Essential (primary) hypertension
CPT/HCPCS: 73502

== ENCOUNTER 2019-03-16 09:08 | Outpatient (CLI) | payer MEDICARE, BC, SELFPAY ==
[2019-03-16 09:44] LABS: Absolute Basophil Count 0.04 k/cumm (0.0-0.2); Absolute Eosinophil Count 0.25 k/cumm (0.0-0.7); Absolute Lymphocyte Count 1.63 k/cumm (1.2-3.4); Absolute Monocyte Count 0.62 k/cumm (0.11-0.7); Absolute Neutrophil Count 3.66 k/cumm (1.2-6.7); Basophils % 0.6; HCT 36.3 % (36.0-46.0); HGB 10.8 g/dL (12.0-15.5); Lymphocytes % 26.3; Mean Corp. HGB Concentration 29.8 g/dL (32.0-36.0); Mean Corpuscular Hemoglobin 26.6 pg (27.0-33.0); Mean Corpuscular Volume 89.4 fL (80-95); Mean Platelet Volume 9.2 fL (8.0-11.0); Neutrophils % 59.1; Platelet Count 298 x1000/uL (130-400); RBC 4.06 m/cumm (4.00-5.20); RBC Distribution Width 13.6 % (11.7-14.6)
[2019-03-16 10:31] LABS: ALT 18 U/L (14-59); AST 24 U/L (15-37); Albumin 3.6 g/dL (3.4-5.0); Alkaline Phosphatase 164 U/L (46-116); BUN 16 mg/dL (7-18); Bilirubin, Total 0.3 mg/dL (0.2-1.0); CREATININE 0.92 mg/dL (0.55-1.02); Calcium 8.8 mg/dL (8.5-10.1); Chloride 104 mmol/L (98-107); Glucose 90 mg/dL (74-106); Potassium 4.1 mmol/L (3.5-5.1); Sodium 140 mmol/L (136-145); Total Protein 7.1 g/dL (6.4-8.2)
[2019-03-21 17:20] LABS: Iron 24 ug/dL (50-170); Total Iron Binding Capacity 384 ug/dL (250-450); Transferrin Sat 6 % (15-50)
[2019-03-21 17:33] LABS: Ferritin 17 ng/mL (8-252)
[2019-03-22 12:00] LABS: Vitamin B12 443 pg/mL (211-911)
== END 2019-03-16 09:28 ==
PROVIDERS: PCP Family Medicine; Visit Provider Physician Assistant Medical
DX: R06.02 Shortness of breath (principal); D64.9 Anemia, unspecified; Z47.1 Aftercare following joint replacement surgery; Z96.642 Presence of left artificial hip joint
CPT/HCPCS: 36415; 80053; 82607; 82728; 83540; 83550; 85025

== ENCOUNTER → 2019-04-27 09:05 | Outpatient (BNVA) | payer MEDICARE, BC, SELFPAY | PROVIDERS: PCP Family Medicine; Referring Provider Family Medicine; Visit Provider Student in an Organized Health Care Education/Training Program | DX: Z47.1 Aftercare following joint replacement surgery; Z96.642 Presence of left artificial hip joint; M70.62 Trochanteric bursitis, left hip ==

== ENCOUNTER 2019-06-07 20:23 | Outpatient (REF) | payer MEDICARE, BC, SELFPAY ==
[2019-06-07 20:03] LABS: Absolute Basophil Count 0.03 k/cumm (0.0-0.2); Absolute Eosinophil Count 0.15 k/cumm (0.0-0.7); Absolute Lymphocyte Count 1.65 k/cumm (1.2-3.4); Absolute Monocyte Count 0.46 k/cumm (0.11-0.7); Absolute Neutrophil Count 2.86 k/cumm (1.2-6.7); Basophils % 0.6; Eosinophils % 2.9; HCT 35.5 % (36.0-46.0); HGB 10.9 g/dL (12.0-15.5); Mean Corp. HGB Concentration 30.7 g/dL (32.0-36.0); Mean Corpuscular Volume 84.5 fL (80-95); Mean Platelet Volume 10.4 fL (8.0-11.0); Monocytes % 8.9; Neutrophils % 55.6; Platelet Count 247 x1000/uL (130-400); RBC Distribution Width 15.4 % (11.7-14.6); White Blood Cell Count 5.15 k/cumm (4.4-10.8)
== END 2019-06-07 20:43 ==
LOC: NCHCN 20:23
PROVIDERS: PCP Family Medicine; Visit Provider Physician Assistant Medical
DX: D64.9 Anemia, unspecified (principal)
CPT/HCPCS: 85025

== ENCOUNTER 2019-09-11 10:57 | Outpatient (REF) | payer MEDICARE, BC, SELFPAY ==
[2019-09-11 19:56] LABS: Abs Immature Grans 0.01 k/cumm (0.0-0.09); Absolute Basophil Count 0.03 k/cumm (0.0-0.2); Absolute Eosinophil Count 0.15 k/cumm (0.0-0.7); Absolute Lymphocyte Count 1.39 k/cumm (1.2-3.4); Absolute Monocyte Count 0.52 k/cumm (0.11-0.7); Absolute Neutrophil Count 4.07 k/cumm (1.2-6.7); Basophils % 0.5; Eosinophils % 2.4; HCT 45.4 % (36.0-46.0); HGB 14.5 g/dL (12.0-15.5); Immature Grans % 0.2 %; Lymphocytes % 22.5; Mean Corp. HGB Concentration 31.9 g/dL (32.0-36.0); Mean Corpuscular Hemoglobin 29.4 pg (27.0-33.0); Mean Corpuscular Volume 91.9 fL (80-95); Mean Platelet Volume 10.7 fL (8.0-11.0); Monocytes % 8.4; Platelet Count 227 x1000/uL (130-400); RBC 4.94 m/cumm (4.00-5.20); RBC Distribution Width 14.1 % (11.7-14.6); White Blood Cell Count 6.17 k/cumm (4.4-10.8)
[2019-09-11 20:23] LABS: Iron 97 ug/dL (50-170); Total Iron Binding Capacity 328 ug/dL (250-450); Transferrin Sat 30 % (15-50)
[2019-09-11 20:31] LABS: Calculated LDL 156 mg/dL (<100); Cholesterol 242 mg/dL (<200); Ferritin 36 ng/mL (8-252); HDL Cholesterol 73 mg/dL (40-60); Triglyceride 66 mg/dL (<150)
== END 2019-09-11 11:17 ==
LOC: NCHCN 10:57
PROVIDERS: PCP Family Medicine; Visit Provider Physician Assistant Medical
DX: D64.9 Anemia, unspecified (principal); E78.89 Other lipoprotein metabolism disorders
CPT/HCPCS: 80061; 82728; 83540; 83550; 85025

== ENCOUNTER 2019-12-11 18:08 | Outpatient (REF) | payer MEDICARE, BC, SELFPAY ==
[2019-12-11 20:26] LABS: HCT 45.1 % (36.0-46.0); HGB 14.6 g/dL (11.2-15.7)
[2019-12-11 20:49] LABS: Anion Gap 5.5 mmol/L (3-11); BUN 15 mg/dL (7-18); CO2 30.5 mmol/L (21.0-32.0); CREATININE 0.97 mg/dL (0.55-1.02); Calcium 8.7 mg/dL (8.5-10.1); Calculated LDL 140 mg/dL (<100); Chloride 102 mmol/L (98-107); Cholesterol 223 mg/dL (<200); Estimated GFR 56.61 (mL/min/1.73m2); Ferritin 40 ng/mL (8-252); Glucose 96 mg/dL (74-106); HDL Cholesterol 65 mg/dL (40-60); Sodium 138 mmol/L (136-145); Triglyceride 93 mg/dL (<150)
== END 2019-12-11 18:28 ==
LOC: NCHCN 18:08
PROVIDERS: PCP Family Medicine; Visit Provider Family Medicine
DX: I10 Essential (primary) hypertension (principal); D64.9 Anemia, unspecified
CPT/HCPCS: 80048; 80061; 82728; 85014; 85018

== ENCOUNTER 2020-01-26 10:51 | Outpatient (CLI) | payer MEDICARE, BC, SELFPAY ==
--- NOTE | 2020-01-26 09:00 | DI.RAD_ITS ---
EXAM: XR HIP LT AP LAT ONLY CLINICAL HISTORY: annual f/u. TECHNIQUE: 2D digital imaging was performed. COMPARISON: CR XR HIP LT COMPLETE AP PELVIS from 02/09/2019 FINDINGS: BONES: There are stable post operative changes present. No fracture or dislocation. The lateral aspe ct of the greater trochanter of the left femur is not included. JOINTS: Stable degenerative changes are seen in the right hip. No joint effusion is present. SOFT TISSUE: Normal. IMPRESSION: Stable postoperative changes. DATA REPOSITORY: RADIATION DOSE DELIVERED:
== END 2020-01-26 11:11 ==
PROVIDERS: PCP Family Medicine; Referring Provider Family Medicine; Visit Provider Student in an Organized Health Care Education/Training Program
DX: Z96.642 Presence of left artificial hip joint; Z47.1 Aftercare following joint replacement surgery; I10 Essential (primary) hypertension
CPT/HCPCS: 99213; 73502

== ENCOUNTER 2020-02-19 17:41 | Outpatient (REF) | payer MEDICARE, BC, SELFPAY ==
[2020-02-22 23:45] LABS: COVID-19 RT-PCR Result NEGATIVE (Negative)
== END 2020-02-19 18:01 ==
LOC: NCHCN 17:41
PROVIDERS: PCP Family Medicine; Visit Provider Nurse Practitioner Family
DX: J01.90 Acute sinusitis, unspecified (principal)
CPT/HCPCS: U0003

== ENCOUNTER 2020-09-02 01:49 | Outpatient (CLI) | payer MEDICARE, BC, SELFPAY ==
--- NOTE | 2020-09-02 | DI.MAMMO_ITS ---
Exam(s) MAMMO SCREENING EXAM: MAMMO SCREENING CLINICAL HISTORY: SCREENING, Z00.00. TECHNIQUE: Bilateral full field digital CC and MLO mammographic images were obtained with 3D tomosyn thesis and utilizing computer aided detection (CAD). COMPARISON: Prior mammograms dating back to 2011, the most recent being November 2018. FINDINGS: There has been no significant change in the appearance and distribution of fibroglandular tissue. There are no new spiculated masses nor malignant appearing microcalcification groups. Numerous benign appearing microcalcifications again noted associated with the tissue band with the la teral aspect right breast, unchanged. Other scattered benign micro and macrocalcifications are again noted in both breasts. There is no significant architectural distortion nor skin thickening-retraction. IMPRESSION: Stable benign findings. No radiographic evidence of malignancy BI-RADS Category 2 - Benign Findings Breast Density - Category B - Scattered areas of fibroglandular density Breast density Category C or D implies that the patient has dense breast tissue. Dense breast tissue can make it harder to find cancer on a mammogram. Dense breast tissue is also associated with an incr eased risk of breast cancer. This information about the result of the mammogram report was provided to the patient to raise their awareness. Use this report when you speak with the patient about their risks for breast cancer, which includes their family history. At that time, you may recommend additional screening tests (Ultrasoun d or MRI) as these tests may add significant information. A negative radiographic report should not delay biopsy if a dominant or clinically suspicious mass is present. Up to ten percent of cancers are not identified on mammography. A negative report may reinforce clinical impression. Adenosis and dense breasts may obscure an underlying neoplasm. False positive reports average 6 to 10%. Patient will receive a letter notifying them of these results.
== END 2020-09-02 02:09 ==
PROVIDERS: PCP Family Medicine; Visit Provider Family Medicine
DX: Z00.00 Encounter for general adult medical examination without abnormal findings (principal); Z12.31 Encounter for screening mammogram for malignant neoplasm of breast; R92.8 Other abnormal and inconclusive findings on diagnostic imaging of breast
CPT/HCPCS: 77063; 77067

== ENCOUNTER 2020-11-13 07:47 | Outpatient (REF) | payer MEDICARE, BC, SELFPAY ==
[2020-11-14 11:52] LABS: COVID-19 RT-PCR UVMMC Result Negative (Negative)
== END 2020-11-13 07:48 | disposition home or self-care (01) ==
LOC: NCHCN 07:47
PROVIDERS: PCP Family Medicine; Visit Provider Nurse Practitioner Family
DX: Z20.822 Contact with and (suspected) exposure to COVID-19 (principal); J01.90 Acute sinusitis, unspecified; R51.9 Headache, unspecified
CPT/HCPCS: U0003; U0005

== ENCOUNTER 2021-01-21 13:18 | Outpatient (REF) | payer MEDICARE, BC, SELFPAY ==
[2021-01-21 14:30] LABS: Anion Gap 8.9 mmol/L (3-11); BUN 19 mg/dL (7-18); CO2 28.1 mmol/L (21.0-32.0); CREATININE 1.1 mg/dL (0.55-1.02); Calcium 9.1 mg/dL (8.5-10.1); Chloride 105 mmol/L (98-107); Estimated GFR 48.82 (mL/min/1.73m2); Glucose 96 mg/dL (74-106); Potassium 4.3 mmol/L (3.5-5.1); Sodium 142 mmol/L (136-145)
== END 2021-01-21 13:19 | disposition home or self-care (01) ==
LOC: NCHCN 13:18
PROVIDERS: PCP Family Medicine; Visit Provider Nurse Practitioner Family
DX: I10 Essential (primary) hypertension (principal)
CPT/HCPCS: 80048

== ENCOUNTER 2021-02-11 08:35 | Outpatient (REF) | payer MEDICARE, BC, SELFPAY ==
[2021-02-12 14:23] LABS: COVID-19 RT-PCR UVMMC Result Negative (Negative)
== END 2021-02-11 08:36 | disposition home or self-care (01) ==
LOC: NCHCN 08:35
PROVIDERS: PCP Family Medicine; Visit Provider Family Medicine
DX: Z20.822 Contact with and (suspected) exposure to COVID-19 (principal); J06.9 Acute upper respiratory infection, unspecified
CPT/HCPCS: U0003; U0005

== ENCOUNTER 2021-04-14 07:44 | Outpatient (CLI) | payer MEDICARE, SELFPAY | END 2021-04-14 07:45 | disposition home or self-care (01) | PROVIDERS: PCP Family Medicine; Visit Provider Dermatology | DX: L40.4 Guttate psoriasis (principal) | CPT/HCPCS: 96900 ==

== ENCOUNTER 2021-04-16 07:57 | Outpatient (CLI) | payer MEDICARE, SELFPAY | END 2021-04-16 07:58 | disposition home or self-care (01) | LOC: PUVA 07:57 | PROVIDERS: PCP Family Medicine; Visit Provider Dermatology | DX: L40.4 Guttate psoriasis (principal) | CPT/HCPCS: 96900 ==

== ENCOUNTER 2021-04-18 07:21 | Outpatient (CLI) | payer MEDICARE, SELFPAY | END 2021-04-18 07:22 | disposition home or self-care (01) | LOC: PUVA 07:21 | PROVIDERS: PCP Family Medicine; Visit Provider Dermatology | DX: L40.4 Guttate psoriasis (principal) | CPT/HCPCS: 96900 ==

== ENCOUNTER 2021-04-21 07:40 | Outpatient (CLI) | payer MEDICARE, SELFPAY | END 2021-04-21 07:41 | disposition home or self-care (01) | LOC: PUVA 07:40 | PROVIDERS: PCP Family Medicine; Visit Provider Dermatology | DX: L40.4 Guttate psoriasis (principal) | CPT/HCPCS: 96900 ==

== ENCOUNTER 2021-04-23 07:28 | Outpatient (CLI) | payer MEDICARE, SELFPAY | END 2021-04-23 07:29 | disposition home or self-care (01) | LOC: PUVA 07:28 | PROVIDERS: PCP Family Medicine; Visit Provider Dermatology | DX: L40.4 Guttate psoriasis (principal) | CPT/HCPCS: 96900 ==

== ENCOUNTER 2021-04-25 08:04 | Outpatient (CLI) | payer MEDICARE, SELFPAY | END 2021-04-25 08:05 | disposition home or self-care (01) | LOC: PUVA 08:04 | PROVIDERS: PCP Family Medicine; Visit Provider Dermatology | DX: L40.4 Guttate psoriasis (principal) | CPT/HCPCS: 96900 ==

== ENCOUNTER 2021-04-28 07:20 | Outpatient (CLI) | payer MEDICARE, SELFPAY | END 2021-04-28 07:21 | disposition home or self-care (01) | LOC: PUVA 07:21 | PROVIDERS: PCP Family Medicine; Visit Provider Dermatology | DX: L40.4 Guttate psoriasis (principal) | CPT/HCPCS: 96900 ==

== ENCOUNTER 2021-04-30 07:48 | Outpatient (CLI) | payer MEDICARE, SELFPAY | END 2021-04-30 07:49 | disposition home or self-care (01) | LOC: PUVA 07:48 | PROVIDERS: PCP Family Medicine; Visit Provider Dermatology | DX: L40.4 Guttate psoriasis (principal) | CPT/HCPCS: 96900 ==

== ENCOUNTER 2021-05-02 07:47 | Outpatient (CLI) | payer MEDICARE, SELFPAY | END 2021-05-02 07:48 | disposition home or self-care (01) | LOC: PUVA 07:47 | PROVIDERS: PCP Family Medicine; Visit Provider Dermatology | DX: L40.4 Guttate psoriasis (principal) | CPT/HCPCS: 96900 ==

== ENCOUNTER 2021-05-05 10:46 | Outpatient (CLI) | payer MEDICARE, SELFPAY | END 2021-05-05 10:47 | disposition home or self-care (01) | LOC: PUVA 10:47 | PROVIDERS: PCP Family Medicine; Visit Provider Dermatology | DX: L40.4 Guttate psoriasis (principal) | CPT/HCPCS: 96900 ==

== ENCOUNTER 2021-05-07 07:54 | Outpatient (CLI) | payer MEDICARE, SELFPAY | END 2021-05-07 07:55 | disposition home or self-care (01) | LOC: PUVA 07:54 | PROVIDERS: PCP Family Medicine; Visit Provider Dermatology | DX: L40.4 Guttate psoriasis (principal) | CPT/HCPCS: 96900 ==

== ENCOUNTER 2021-05-09 07:50 | Outpatient (CLI) | payer MEDICARE, SELFPAY | END 2021-05-09 07:51 | disposition home or self-care (01) | LOC: PUVA 07:50 | PROVIDERS: PCP Family Medicine; Visit Provider Dermatology | DX: L40.4 Guttate psoriasis (principal) | CPT/HCPCS: 96900 ==

== ENCOUNTER 2021-05-12 14:40 | Outpatient (CLI) | payer MEDICARE, SELFPAY | END 2021-05-12 14:41 | disposition home or self-care (01) | LOC: PUVA 14:46 | PROVIDERS: PCP Family Medicine; Visit Provider Dermatology | DX: L40.4 Guttate psoriasis (principal) | CPT/HCPCS: 96900 ==

== ENCOUNTER 2021-05-14 14:32 | Outpatient (CLI) | payer MEDICARE, SELFPAY | END 2021-05-14 14:33 | disposition home or self-care (01) | LOC: PUVA 14:41 | PROVIDERS: PCP Family Medicine; Visit Provider Dermatology | DX: L40.4 Guttate psoriasis (principal) | CPT/HCPCS: 96900 ==

== ENCOUNTER 2021-05-16 11:35 | Outpatient (CLI) | payer MEDICARE, SELFPAY | END 2021-05-16 11:36 | disposition home or self-care (01) | LOC: PUVA 11:36 | PROVIDERS: PCP Family Medicine; Visit Provider Dermatology | DX: L40.4 Guttate psoriasis (principal) | CPT/HCPCS: 96900 ==

== ENCOUNTER 2021-05-19 11:56 | Outpatient (CLI) | payer MEDICARE, SELFPAY | END 2021-05-19 11:57 | disposition home or self-care (01) | LOC: PUVA 06-03 11:56 | PROVIDERS: PCP Family Medicine; Visit Provider Dermatology | DX: R19.5 Other fecal abnormalities (principal); I10 Essential (primary) hypertension; I44.7 Left bundle-branch block, unspecified | CPT/HCPCS: 99213; 99242 ==

== ENCOUNTER 2021-05-19 14:17 | Outpatient (CLI) | payer MEDICARE, SELFPAY ==
--- NOTE | 2021-05-19 16:00 | RT.EKG_ITS ---
APPROVED REPORT Exam: Resting ECG Reason for Exam: hx of LBBB Patient Location: O HR:97 bpm ECG Measurements Heart Rate 97 AXIS OR 158 P 51 QRSd 168 QRS -2 QT 400 T 202 QTc 513 Conclusion Sinus rhythm...normal P axis, V-rate 60- 99 Multiple ventricular premature complexes...V complexes w/ short R-R intervls Probable left atrial enlargement...P >50mS, <-0.10mV V1 Left bundle branch block...QRSd>120, broad/notched R ST elevation secondary to IVCD...Multiple VCG criteria
== END 2021-05-19 14:18 | disposition home or self-care (01) ==
LOC: RT 14:19
PROVIDERS: PCP Family Medicine; Visit Provider Surgery
DX: I44.7 Left bundle-branch block, unspecified (principal); R19.5 Other fecal abnormalities; R94.31 Abnormal electrocardiogram [ECG] [EKG]
CPT/HCPCS: 93005; 93010

== ENCOUNTER 2021-05-19 14:41 | Outpatient (CLI) | payer MEDICARE, SELFPAY | END 2021-05-19 14:42 | disposition home or self-care (01) | LOC: PUVA 14:41 | PROVIDERS: PCP Family Medicine; Visit Provider Dermatology | DX: L40.4 Guttate psoriasis (principal) | CPT/HCPCS: 96900 ==

== ENCOUNTER 2021-05-19 15:38 | Outpatient (CLI) | payer MEDICARE, SELFPAY ==
[2021-05-19 16:33] LABS: Abs Immature Grans 0.02 10^3/uL (0.0-0.06); Absolute Basophil Count 0.03 10^3/uL (0.0-0.2); Absolute Eosinophil Count 0.06 10^3/uL (0.0-0.7); Absolute Lymphocyte Count 1.35 10^3/uL (1.2-3.4); Absolute Monocyte Count 0.45 10^3/uL (0.1-0.8); Absolute Neutrophil Count 4.63 10^3/uL (1.2-6.7); Basophils % 0.5; Eosinophils % 0.9; HCT 44.2 % (36.0-46.0); HGB 14.1 g/dL (11.2-15.7); Immature Grans % 0.3; Lymphocytes % 20.6; MCH 29.8 pg (27.0-33.0); MCHC 31.9 % (32.0-36.0); MCV 93.4 fL (80-95); MPV 9.5 fL (8.0-11.0); Monocytes % 6.9; Neutrophils % 70.8; Nucleated RBC 0 %; Platelet Count 195 10^3/uL (130-400); RBC 4.73 10^6/uL (3.93-5.22); RDW 12.2 % (11.7-14.6); RDW-SD 42.5 fL; WBC 6.54 10^3/uL (4.4-10.8)
[2021-05-19 17:33] LABS: ALT 21 U/L (14-59); AST 26 U/L (15-37); Albumin 3.8 g/dL (3.4-5.0); Alkaline Phosphatase 138 U/L (46-116); Anion Gap 12.8 mmol/L (3-11); BUN 21 mg/dL (7-18); Bilirubin, Total 0.4 mg/dL (0.2-1.0); CO2 23.2 mmol/L (21.0-32.0); CREATININE 1.2 mg/dL (0.55-1.02); Calcium 8.7 mg/dL (8.5-10.1); Chloride 104 mmol/L (98-107); Estimated GFR 44.16 (mL/min/1.73m2); Glucose 108 mg/dL (74-106); Potassium 4.2 mmol/L (3.5-5.1); Sodium 140 mmol/L (136-145); TSH 2.07 uIU/mL (0.36-3.74); Total Protein 7.3 g/dL (6.4-8.2)
== END 2021-05-19 15:39 | disposition home or self-care (01) ==
LOC: LBO 15:43
PROVIDERS: PCP Family Medicine; Visit Provider Surgery
DX: I10 Essential (primary) hypertension (principal); I44.7 Left bundle-branch block, unspecified
CPT/HCPCS: 36415; 80053; 84443; 85025

== ENCOUNTER 2021-05-21 14:46 | Outpatient (CLI) | payer MEDICARE, SELFPAY | END 2021-05-21 14:47 | disposition home or self-care (01) | LOC: PUVA 14:46 | PROVIDERS: PCP Family Medicine; Visit Provider Dermatology | DX: L40.4 Guttate psoriasis (principal) | CPT/HCPCS: 96900 ==

== ENCOUNTER 2021-05-23 11:28 | Outpatient (CLI) | payer MEDICARE, SELFPAY | END 2021-05-23 11:29 | disposition home or self-care (01) | LOC: PUVA 11:47 | PROVIDERS: PCP Family Medicine; Visit Provider Dermatology | DX: L40.4 Guttate psoriasis (principal) | CPT/HCPCS: 96900 ==

== ENCOUNTER 2021-05-26 02:56 | Outpatient (CLI) | payer MEDICARE, SELFPAY ==
[2021-05-26 11:23] LABS: Source Nasal/Nares
[2021-05-26 16:09] LABS: COVID-19 PCR Negative (Negative)
== END 2021-05-26 02:57 | disposition home or self-care (01) ==
PROVIDERS: PCP Family Medicine; Visit Provider Surgery
DX: Z20.822 Contact with and (suspected) exposure to COVID-19 (principal); Z01.818 Encounter for other preprocedural examination
CPT/HCPCS: 87635; U0005

== ENCOUNTER 2021-05-26 08:42 | Outpatient (CLI) | payer MEDICARE, SELFPAY | END 2021-05-26 08:43 | disposition home or self-care (01) | LOC: PUVA 08:42 | PROVIDERS: PCP Family Medicine; Visit Provider Dermatology | DX: L40.4 Guttate psoriasis (principal) | CPT/HCPCS: 96900 ==

== ENCOUNTER 2021-05-27 10:12 | Day surgery (SDC) | payer MEDICARE, SELFPAY ==
[2021-05-27 10:47] VITALS: BP 142/74; PULSE 104; RESP 18; TEMP 36.6; O2SAT 98
[2021-05-27] MEDS: Lactated Ringers 1,000 ML 80 ML IV (10:50)
--- NOTE | 2021-05-27 10:55 | W.ANESPRE ---
General Info Date of Service Date Performed: 05/27/21 Height: 5 ft 3 in Weight: 96.6 kg Body Mass Index (BMI): 37.7 Surgical Procedure: Operation Date: 05/27/21 11:05 Proposed Procedure Side Surgeon chava Moran, DO Meds Allergies and Home Medications Allergies Allergy/AdvReac Type Severity Reaction Status Date / Time Sulfa (Sulfonamide AdvReac Intermediate speeds up Unverified 05/27/21 10:32 Antibiotics) heartrate Home Medication Medication Instructions Recorded lisinopril 20 mg tablet 20 mg PO DAILY tab-cap 01/20/16 turmeric root extract 500 mg 500 mg PO DAILY 09/26/18 capsule albuterol sulfate 90 mcg/actuation 2 puff INHALATION Q6H PRN 04/10/21 aerosol inhaler fluticasone propionate 50 1 spray INTRANASAL DAILY 04/10/21 mcg/actuation nasal spray,suspension ibuprofen 200 mg tablet (Advil) 200 mg PO Q6H PRN 04/14/21 bisacodyl 5 mg tablet,delayed 5 mg PO ONCE #4 tab 05/19/21 release (Dulcolax (bisacodyl)) polyethylene glycol 3350 17 238 g PO ONCE #238 g 05/19/21 gram/dose oral powder acetaminophen 500 mg tablet 1,000 mg 05/27/21 (Tylenol Extra Strength) Current Visit Medications: Current Medications Generic Name Dose Route Start Last Admin Trade Name Freq PRN Reason Stop Dose Admin Ringer's Solution 1,000 mls @ 80 mls/hr 05/27/21 06:00 IV 06/05/21 23:59 INFUSION SANDRA IV Miscellaneous Supplies 1 each 05/27/21 06:00 Iv Access IV 06/05/21 23:59 DIRECTED SANDRA Sodium Chloride 0 ml 05/27/21 06:00 Normal Saline Flush 10 Ml Syr IV 06/05/21 23:59 PRN PRN Sodium Chloride 0 ml 05/27/21 06:00 Normal Saline 10 Ml Vial IJ 06/05/21 23:59 DIRECTED PRN Sterile Water 0 ml 05/27/21 06:00 Water,Injection,Sterile 10 Ml Vial IJ 06/05/21 23:59 DIRECTED PRN PFSH Active Problems Active Problems: Problem Status Onset Code Hypertension I10 Primary osteoarthritis of right hip 04/01/16 M16.11 History of total left hip replacement 11/20/19 Z96.642 Trochanteric bursitis, left hip M70.62 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 Positive colorectal cancer screening using Cologuard test R19.5 LBBB (left bundle branch block) I44.7 Medical History Medical History (Updated 05/27/21 @ 10:37 by Ashley Daily) Hx of left bundle branch block Hx of vertigo Medical History Comments:: first part of last colo was awake Surgical History Surgical History Hx of colonoscopy Hx of cone biopsy of cervix Tobacco Smoking/Tobacco Use Status: Never Alcohol Alcohol Intake: current Alcohol intake frequency: holidays/special occasions only Alcohol type: wine Substance Use Substance use: Never Substance use type: does not use Details: alcohol: long time ago Vital Signs and Lab Results Vital Signs Most Recent Vital Signs in EMR: Most Recent Vital Signs Temp Pulse Resp BP Pulse Ox 36.6 C 104 H 18 142/74 H 98 05/27/21 10:47 05/27/21 10:47 05/27/21 10:47 05/27/21 10:47 05/27/21 10:47 Lab Results Blood Type / Crossmatch: No Data to Display Complete Blood Count: White Blood Count 6.54 10^3/uL (4.4-10.8) 05/19/21 16:25 05/19/21 Red Blood Count 4.73 10^6/uL (3.93-5.22) 05/19/21 16:25 05/19/21 Hemoglobin 14.1 g/dL (11.2-15.7) 05/19/21 16:25 05/19/21 Hematocrit 44.2 % (36.0-46.0) 05/19/21 16:25 05/19/21 Platelet Count 195 10^3/uL (130-400) 05/19/21 16:25 05/19/21 Complete Metabolic Panel: Sodium Level 140 mmol/L (136-145) 05/19/21 16:25 05/19/21 Potassium Level 4.2 mmol/L (3.5-5.1) 05/19/21 16:25 05/19/21 Chloride Level 104 mmol/L (98-107) 05/19/21 16:25 05/19/21 Carbon Dioxide Level 23.2 mmol/L (21.0-32.0) 05/19/21 16:25 05/19/21 Blood Urea Nitrogen 21 mg/dL (7-18) H 05/19/21 16:25 05/19/21 Creatinine 1.2 mg/dL (0.55-1.02) H 05/19/21 16:25 05/19/21 Estimated GFR/1.73 m2 44.16 (mL/min/1.73m2) 05/19/21 16:25 05/19/21 Calcium Level 8.7 mg/dL (8.5-10.1) 05/19/21 16:25 05/19/21 Albumin 3.8 g/dL (3.4-5.0) 05/19/21 16:25 05/19/21 Glucose Level 108 mg/dL (74-106) H 05/19/21 16:25 05/19/21 Liver Function Panel: Alanine Aminotransferase (ALT/SGPT) 21 U/L (14-59) 05/19/21 16:25 05/19/21 Aspartate Amino Transf (AST/SGOT) 26 U/L (15-37) 05/19/21 16:25 05/19/21 Coagulation Panel: No Data to Display Cardiac Panel: No Data to Display Arterial Blood Gas: No Data to Display Venous Blood Gas: No Data to Display Pancreas Panel: No Data to Display Thyroid Panel: Thyroid Stimulating Hormone (TSH) 2.07 uIU/mL (0.36-3.74) 05/19/21 16:25 05/19/21 Infectious Disease: Coronavirus (COVID-19)(PCR) Negative (Negative) 05/26/21 09:02 05/26/21 Coronavirus 2019 Source Nasal/Nares 05/26/21 09:02 05/26/21 Blood Cultures: No Data to Display Toxicology Panel: No Data to Display Anesthesia Assessment and Plan Anesthesia History Personal History: No History of Anesthesia Complications Family History: No Family History of Anesthesia Complications Exercise Tolerance Exercise Tolerance: Metabolic Equivalents>4 Cardiac & Pulmonary Exam Cardiac Exam: Normal S1/S2 Heart Sounds and Other (Irregular heart rate, known multifocal PVC) Pulmonary Exam: Clear Bilateral Breath Sounds Implantable Cardiac Device Does patient have a Pacemaker or an ICD?: No Airway Exam Known Difficult Airway: No Mallampati Class: 1 Mouth Opening: Normal (> 3cm) Thyromental Distance: Greater than 3 cm Neck Range of Motion: Full ROM Neck Circumference: Normal Teeth Condition: Normal Dentition ASA Classification ASA Score: ASA 2 Emergency Case?: No NPO Status NPO Status: NPO Clears >2 hours, Solids >8 hours Anesthesia Plan Resuscitation Status: Full Code Anesthesia Technique: General Anesthesia Airway Planned: Natural Airway Monitors Used: Standard Monitors
[2021-05-27 10:59] VITALS: BMI 37.7
--- NOTE | 2021-05-27 11:23 | BOWEL_PTH ---
PATIENT: Luna Mott LOC: [facility] U#:[id number] AGE/SX: 70/F ROOM: RE05/27/[address]: Iman Moran : 1950 BED: DIS: 05/27/2021 SPEC #: [id number] RECD: 05/27/21 12:47 STATUS: LAMBERT REQ #: [id number] MIGUELINA: 05/27/21 11:[address]: Iman Moran DEPT: Surgical Specimen RECD BY: Anais Higgins ENTERED: 05/27/21 12:48 SP TYPE: Bowel OTHR DR: Lolly Olievira V Tissues: 1 - BIOPSY BOWEL Procedures: GROSS AND MICRO LEVEL 4 Comments: [id number]
--- NOTE | 2021-05-27 11:38 | PDOC.DSDIS_ITS ---
Discharge Plan Disposition Patient Disposition: HOME Condition: Good Discharge Details Reason For Visit: colon scope Attending Provider: Iman Moran Primary Care Provider: Lolly Oliveira V Home Meds and New Rx's Prescriptions: Continued turmeric root extract 500 mg capsule 500 mg PO DAILY 0RF lisinopril 20 MG tablet 20 mg PO DAILY 0RF albuterol sulfate 90 mcg/actuation Hfa Aerosol Inhaler 2 puff INHALATION Q6H PRN0RF fluticasone propionate 50 mcg/actuation [place],Suspension 1 spray INTRANASAL DAILY 0RF ibuprofen [Advil] 200 mg Tablet 200 mg PO Q6H PRN0RF acetaminophen [Tylenol Extra Strength] 500 mg Tablet 1,000 mg 0RF Discontinued polyethylene glycol 3350 17 gram/dose powder 238 g PO ONCE Qty: 238 0RF Rx Instructions: take per colonoscopy instructions bisacodyl [Dulcolax (bisacodyl)] 5 mg tablet,delayed release (DR/EC) 5 mg PO ONCE Qty: 4 0RF Rx Instructions: take per colonoscopy instructions Discharge Instructions Additional Instructions: DSU Colonoscopy Post- Op Instructions Instructions for Everyone who is given Anesthesia: For your safety, please do the following for the next twenty-four (24) hours: *Do Not operate a motor vehicle (car, truck, motorcycle, etc.) *Do Not drink alcoholic beverages or use any recreational drugs for the first 24 hours or while taking pain medications. The medications in your body may have a reaction that can be dangerous. *Do Not make any important decisions or sign any important papers. Findings: severe diveritucla small polyp Follow up:repeat in 5-7 yrs time if still healthy for anesthesia. 1. No lifting over 20 pounds or strenuous activity for the first 24 hours after your procedure. After 24 hours there are no restrictions on your activity but y ou may feel fatigued for a few days. 2. After you arrive home you may have a light meal and return to your normal diet as you can tolerate it without feeling sick to your stomach. 3. You may have a bloated, gaseous feeling in your belly (abdomen) after a colonoscopy. Passing gas and belching will help. Walking or lying down on your left side with your knees flexed may relieve the discomfort. Call the office at [phone] (Office) or [phone] (Hospital) right away if you notice any of the following: a.Vomiting of blood or ?coffee ground stools?. b.Rectal bleeding 1Tbsp, blood clots or continuous bleeding. c.Severe belly (abdominal) pain. d.A hard distended belly (abdomen) and an inability to pass gas. 4. Please don?t expect to have a normal BM (bowel movement) for 2-3 days after your procedure. 5. If there are questions regarding the findings of your procedure, please contact your doctor 6. If you are unable to contact your doctor with a problem, contact the hospital at [phone]. 7. Continue all your regular medications unless directed otherwise. I understand the above instructions and have no questions. Signature of Patient or Adult Escort Name of Responsible Adult Escort Signature of Nurse Date/Time Activity:: see above Diet:: see above Discharge Orders Discharge Orders: Discharge Order (Routine); Ordered 05/27/21 Ordered By: Iman Moran
--- NOTE | 2021-05-27 11:41 | W.COLOREPORT ---
Colonoscopy Report Date of procedure: 05/27/21 Pre-op diagnosis general: +Cologuard Post-op diagnosis procedure note: other (A. polyp/severe diverticula) Surgeon: Iman Moran Anesthesia Type: General:No Airway Estimated blood loss (mL): 1 Pathology: other Complications: None Disposition: same day Prep: Miralax/Dulcolax Retraction Time: 10 Procedure Description: After informed consent was obtained the patient was taken to the procedure room and placed in a left decubitous position. Monitors were applied and a time out was done. The patients name, date of , procedure, allergies to medications and metal in their body was reviewed. The patient was then sedated. Once sedated and comfortable a rectal exam was done. External exam was normal. Internal exam revealed a normal sphincter tone and no palpable masses. The scope was then introduced and retrofelexed. Nointernal hemorrhoids were identified. The scope was then advanced to the cecum with difficulty. She has very sharp turns at her fractures. The colon is floppy and redundant. The TI and appendiceal orifice were identified. The prep was be BPS 3 in all segments for a total of 9. The scope was then slowly retracted over 10minutes back into the rectum. She has severe diverticula confined to the sigmoid colon. There is no signs of active bleeding or infection. She has a small 5 mm adenomatous polyp that is removed with a cold biopsy forcep at 90 cm. All specimen is retrieved and no bleeding is noted. The scope was removed and the patient was woken up and taken back to Same day surgery in stable condition. The patient tolerated the procedure well and there were no immediate complications. Follow up: The patient should follow up in 5-7years, path pending, unless they develop changes in bowel habits or other new gastrointestinal complaints.
[2021-05-27 11:42] VITALS: BP 123/66; PULSE 92; RESP 18; TEMP 36.3; O2SAT 95
--- NOTE | 2021-05-27 11:44 | W.ANESPOSTOP ---
Postoperative Evaluation Date, Time and Location Date Performed: 05/27/21 Time Performed: 11:44 Patient Location: Day Surgery Unit Vital Signs Most Recent Imported Vital Signs: Most Recent Vital Signs Temp Pulse Resp BP Pulse Ox 36.6 C 104 H 18 142/74 H 98 05/27/21 10:47 05/27/21 10:47 05/27/21 10:47 05/27/21 10:47 05/27/21 10:47 Most Recent Manually Entered Vital Signs: Adult Blood Pressure: 123/66 Heart Rate: 89 Respirations: 10 Oxygen Saturation (%): 96 Temperature (C): 36.3 C Pain Score (0-10 Scale): 0 Pain Score Most Recent Pain Score: Most Recent Pain Score Pain Level 0 05/27/21 10:47 Assessment Mental Status: Awake (Alert & Oriented to Patient Baseline) Airway and Respiratory Function: Patent airway with normal (patient baseline) respiratory exam Cardiovascular Function: Hemodynamically Stable Hydration Status: Adequately Hydrated Nausea & Vomiting: No Nausea or Vomiting Pain: Pt. Denies Any Pain Peripheral Nerve Block: Patient did not receive a nerve block
[2021-05-27 11:45] VITALS: BP 123/66; PULSE 89; RESP 10; TEMPC 36.3; O2SAT 96
[2021-05-27 12:14] VITALS: BP 143/76; PULSE 79; RESP 18; TEMP 36.5; O2SAT 98
== END 2021-05-27 12:51 | disposition home or self-care (01) ==
PROVIDERS: PCP Family Medicine; Visit Provider Surgery
PROC: 0DJD8ZZ Inspection of Lower Intestinal Tract, Via Natural or Artificial Opening Endoscopic (ICD-10-PCS; CPT 45378; principal; 2021-05-27 11:00)
DX: R19.5 Other fecal abnormalities (principal); K63.5 Polyp of colon; K57.30 Diverticulosis of large intestine without perforation or abscess without bleeding
CPT/HCPCS: 45380; 88305; J2001

== ENCOUNTER 2021-05-28 14:39 | Outpatient (CLI) | payer MEDICARE, SELFPAY | END 2021-05-28 14:40 | disposition home or self-care (01) | LOC: PUVA 14:39 | PROVIDERS: PCP Family Medicine; Visit Provider Dermatology | DX: L40.4 Guttate psoriasis (principal) | CPT/HCPCS: 96900 ==

== ENCOUNTER 2021-05-30 08:02 | Outpatient (CLI) | payer MEDICARE, SELFPAY | END 2021-05-30 08:03 | disposition home or self-care (01) | LOC: PUVA 08:02 | PROVIDERS: PCP Family Medicine; Visit Provider Dermatology | DX: L40.4 Guttate psoriasis (principal) | CPT/HCPCS: 96900 ==

== ENCOUNTER 2021-06-02 13:50 | Outpatient (CLI) | payer MEDICARE, SELFPAY | END 2021-06-02 13:51 | disposition home or self-care (01) | LOC: PUVA 13:50 | PROVIDERS: PCP Family Medicine; Visit Provider Dermatology | DX: L40.4 Guttate psoriasis (principal) | CPT/HCPCS: 96900 ==

== ENCOUNTER 2021-06-04 14:09 | Outpatient (CLI) | payer MEDICARE, SELFPAY | END 2021-06-04 14:10 | disposition home or self-care (01) | LOC: PUVA 14:10 | PROVIDERS: PCP Family Medicine; Visit Provider Dermatology | DX: L40.4 Guttate psoriasis (principal) | CPT/HCPCS: 96900 ==

== ENCOUNTER 2021-06-06 11:32 | Outpatient (CLI) | payer MEDICARE, SELFPAY | END 2021-06-06 11:33 | disposition home or self-care (01) | LOC: PUVA 11:33 | PROVIDERS: PCP Family Medicine; Visit Provider Dermatology | DX: L40.4 Guttate psoriasis (principal) | CPT/HCPCS: 96900 ==

== ENCOUNTER 2021-06-09 14:50 | Outpatient (CLI) | payer MEDICARE, SELFPAY | END 2021-06-09 14:51 | disposition home or self-care (01) | LOC: PUVA 14:50 | PROVIDERS: PCP Family Medicine; Visit Provider Dermatology | DX: L40.4 Guttate psoriasis (principal) | CPT/HCPCS: 96900 ==

== ENCOUNTER 2021-06-13 11:26 | Outpatient (CLI) | payer MEDICARE, SELFPAY | END 2021-06-13 11:27 | disposition home or self-care (01) | LOC: PUVA 11:27 | PROVIDERS: PCP Family Medicine; Visit Provider Dermatology | DX: L40.9 Psoriasis, unspecified (principal) | CPT/HCPCS: 96900 ==

== ENCOUNTER 2021-06-16 14:19 | Outpatient (CLI) | payer MEDICARE, SELFPAY | END 2021-06-16 14:20 | disposition home or self-care (01) | LOC: PUVA 14:27 | PROVIDERS: PCP Family Medicine; Visit Provider Dermatology | DX: L40.9 Psoriasis, unspecified (principal) | CPT/HCPCS: 96900 ==

== ENCOUNTER 2021-06-20 09:23 | Outpatient (CLI) | payer MEDICARE, SELFPAY | END 2021-06-20 09:24 | disposition home or self-care (01) | LOC: PUVA 09:58 | PROVIDERS: PCP Family Medicine; Visit Provider Dermatology | DX: L40.9 Psoriasis, unspecified (principal) | CPT/HCPCS: 96900 ==

== ENCOUNTER 2021-06-23 14:37 | Outpatient (CLI) | payer MEDICARE, SELFPAY | END 2021-06-23 14:38 | disposition home or self-care (01) | LOC: PUVA 14:37 | PROVIDERS: PCP Family Medicine; Visit Provider Dermatology | DX: L40.9 Psoriasis, unspecified (principal) | CPT/HCPCS: 96900 ==

== ENCOUNTER 2021-06-27 07:29 | Outpatient (CLI) | payer MEDICARE, SELFPAY | END 2021-06-27 07:30 | disposition home or self-care (01) | LOC: PUVA 07:29 | PROVIDERS: PCP Family Medicine; Visit Provider Dermatology | DX: L40.9 Psoriasis, unspecified (principal) | CPT/HCPCS: 96900 ==

== ENCOUNTER 2021-06-30 08:16 | Outpatient (CLI) | payer MEDICARE, SELFPAY | END 2021-06-30 08:17 | disposition home or self-care (01) | LOC: PUVA 08:16 | PROVIDERS: PCP Family Medicine; Visit Provider Dermatology | DX: L40.9 Psoriasis, unspecified (principal) | CPT/HCPCS: 96900 ==

== ENCOUNTER 2021-07-04 07:25 | Outpatient (CLI) | payer MEDICARE, SELFPAY | END 2021-07-04 07:26 | disposition home or self-care (01) | LOC: PUVA 07:25 | PROVIDERS: PCP Family Medicine; Visit Provider Dermatology | DX: L40.9 Psoriasis, unspecified (principal) | CPT/HCPCS: 96900 ==

== ENCOUNTER 2021-07-11 07:27 | Outpatient (CLI) | payer MEDICARE, SELFPAY | END 2021-07-11 07:28 | disposition home or self-care (01) | LOC: PUVA 07:27 | PROVIDERS: PCP Family Medicine; Visit Provider Dermatology | DX: L40.4 Guttate psoriasis (principal) | CPT/HCPCS: 96900 ==

== ENCOUNTER 2021-07-18 08:20 | Outpatient (CLI) | payer MEDICARE, SELFPAY | END 2021-07-18 08:21 | disposition home or self-care (01) | LOC: PUVA 08:20 | PROVIDERS: PCP Family Medicine; Visit Provider Dermatology | DX: L40.4 Guttate psoriasis (principal) | CPT/HCPCS: 96900 ==

== ENCOUNTER 2021-07-25 07:30 | Outpatient (CLI) | payer MEDICARE, SELFPAY | END 2021-07-25 07:31 | disposition home or self-care (01) | LOC: PUVA 07:30 | PROVIDERS: PCP Family Medicine; Visit Provider Dermatology | DX: L40.4 Guttate psoriasis (principal) | CPT/HCPCS: 96900 ==

== ENCOUNTER 2021-08-01 07:55 | Outpatient (CLI) | payer MEDICARE, SELFPAY | END 2021-08-01 07:56 | disposition home or self-care (01) | LOC: PUVA 07:55 | PROVIDERS: PCP Family Medicine; Visit Provider Dermatology | DX: L40.4 Guttate psoriasis (principal) | CPT/HCPCS: 96900 ==

== ENCOUNTER 2021-08-18 13:55 | Outpatient (CLI) | payer MEDICARE, SELFPAY ==
--- NOTE | 2021-08-18 13:30 | DI.RAD_ITS ---
Exam(s) XR HIP RT COMPLETE AP PELVIS EXAM: XR HIP RT COMPLETE AP PELVIS INDICATION: R hip OA. COMPARISON: CR XR PELVIS AP from 12/09/2018 CR XR HIP LT COMPLETE AP PELVIS from 02/09/2019 CR XR HIP LT AP LAT ONLY from 01/26/2020 TECHNIQUE: 2D digital imaging was performed. Two views. FINDINGS: There has been no change in the left hip prosthesis. There is mild right hip joint space narrowing . There is prominent spurring at the acetabulum. There is mild spurring at the femoral head. Calci fication is noted above the right greater trochanter, better seen on prior due to projection.. IMPRESSION: Moderate degenerative changes of the right hip. DATA REPOSITORY: RADIATION DOSE DELIVERED:
== END 2021-08-18 13:56 | disposition home or self-care (01) ==
LOC: DIORS 13:55
PROVIDERS: PCP Family Medicine; Referring Provider Family Medicine; Visit Provider Physician Assistant
DX: M16.11 Unilateral primary osteoarthritis, right hip (principal)
CPT/HCPCS: 99214; 73502

== ENCOUNTER → 2021-10-20 15:39 | Outpatient (CLI) | payer MEDICARE, SELFPAY ==
--- NOTE | 2021-10-20 | DI.US_ITS ---
Exam(s) US EXTREMITY VENOUS BI EXAM: US EXTREMITY VENOUS BI CLINICAL HISTORY: TRACE TO 1+BILAT PITTING/PATCHY PERIPHERAL EDEMA,R60.9;RT CALF PAIN,M79.661 TECHNIQUE: Grayscale, color, and doppler imaging of the deep venous system of both lower extremities was performed. COMPARISON: US RIGHT BREAST ULTRASOUND from 07/14/2013 FINDINGS: There is no evidence of intraluminal thrombus and there is normal compression and augmentation demons trated within the common femoral veins, femoral veins, and popliteal veins of both lower extremities. In the calves the interrogated veins also exhibit normal compression/ augmentation properties. The greater saphenous veins also appear patent as do the saphenofemoral junctions bilaterally.. IMPRESSION: 1. No ultrasound evidence of DVT in either lower extremity. DATA REPOSITORY:
== END ==
PROVIDERS: PCP Family Medicine; Visit Provider Nurse Practitioner Family
DX: R60.9 Edema, unspecified (principal); M79.661 Pain in right lower leg
CPT/HCPCS: 93970

== ENCOUNTER 2021-10-20 18:15 | Outpatient (REF) | payer MEDICARE, SELFPAY ==
[2021-10-20 18:53] LABS: HCT 42.5 % (36.0-46.0); HGB 13.7 g/dL (11.2-15.7); MCH 29.9 pg (27.0-33.0); MCHC 32.2 % (32.0-36.0); MCV 93 fL (80-95); MPV 10.4 fL (8.0-11.0); Platelet Count 205 10^3/uL (130-400); RBC 4.58 10^6/uL (3.93-5.22); RDW 12.9 % (11.7-14.6); RDW-SD 43.8 fL; WBC 6.22 10^3/uL (4.4-10.8)
[2021-10-20 19:12] LABS: Prothrombin Time 10.1 sec (9.3-11.0)
[2021-10-20 19:28] LABS: ALT 25 U/L (14-59); AST 24 U/L (15-37); Alkaline Phosphatase 107 U/L (46-116); BUN 14 mg/dL (7-18); Bilirubin, Total 0.4 mg/dL (0.2-1.0); CREATININE 1.1 mg/dL (0.55-1.02); Calcium 8.9 mg/dL (8.5-10.1); Chloride 104 mmol/L (98-107); Estimated GFR 48.69 (mL/min/1.73m2); Glucose 116 mg/dL (74-106); NT-proBNP 9696 pg/mL (<300); Potassium 4.6 mmol/L (3.5-5.1); Sodium 140 mmol/L (136-145); Total Protein 7.7 g/dL (6.4-8.2)
== END 2021-10-20 18:16 | disposition home or self-care (01) ==
LOC: NCHCN 18:15
PROVIDERS: PCP Family Medicine; Visit Provider Nurse Practitioner Family
DX: M79.661 Pain in right lower leg (principal); R60.9 Edema, unspecified; I44.7 Left bundle-branch block, unspecified
CPT/HCPCS: 80053; 85027; 83880; 85610

== ENCOUNTER → 2021-10-27 02:58 | Outpatient (CLI) | payer MEDICARE, SELFPAY ==
--- NOTE | 2021-10-27 07:45 | DI.RAD_ITS ---
Exam(s) XR CHEST 2V PA LATERAL EXAM: XR CHEST 2V PA LATERAL CLINICAL HISTORY: PERIPHERAL EDEMA, R60.9; ABNL LABS, R89.9; SOB, R06.02; LOOKING FOR SX CHF TECHNIQUE: 2D digital imaging was performed of the chest. Two images were obtained. PA and lateral views were obtained. COMPARISON: No exams were available for comparison FINDINGS: MEDIASTINUM: Normal. HEART: Normal. PULMONARY VASCULATURE: Normal. Atherosclerosis is present. LUNGS: There is scarring in the left mid lung. The lungs are otherwise clear. PLEURAL SPACE: No pleural effusion or pneumothorax. BONE:Within normal limits for the patient's age. OTHER FINDINGS:Normal. IMPRESSION: No acute pulmonary findings. DATA REPOSITORY: RADIATION DOSE DELIVERED:
== END ==
PROVIDERS: PCP Family Medicine; Visit Provider Nurse Practitioner Family
DX: R06.02 Shortness of breath (principal); R60.9 Edema, unspecified; R89.9 Unspecified abnormal finding in specimens from other organs, systems and tissues
CPT/HCPCS: 71046

== ENCOUNTER 2021-10-28 19:00 | Outpatient (REF) | payer MEDICARE, SELFPAY ==
[2021-10-28 17:18] LABS: Calculated LDL 116 mg/dL (<100); Cholesterol 194 mg/dL (<200); HDL Cholesterol 65 mg/dL (40-60); Triglyceride 65 mg/dL (<150)
== END 2021-10-28 19:01 | disposition home or self-care (01) ==
LOC: NCHCN 19:00
PROVIDERS: PCP Family Medicine; Visit Provider Nurse Practitioner Family
DX: I10 Essential (primary) hypertension (principal); R06.02 Shortness of breath; R89.9 Unspecified abnormal finding in specimens from other organs, systems and tissues
CPT/HCPCS: 80061

== ENCOUNTER → 2021-10-29 01:38 | Outpatient (CLI) | payer MEDICARE, SELFPAY ==
--- NOTE | 2021-10-29 16:00 | DI.US_ITS ---
APPROVED REPORT EXAM: Comprehensive 2D, Doppler, and color-flow Echocardiogram Patient Location: Out-Patient Switch Box Installer: Soco Dong RDCS (AE) Indications: Peripheral edema, SOB Other Information Study Quality: Adequate Conclusion The left ventricle is moderately dilated. Wall thickness is normal. Estimated ejection fraction is 15 to 20%. Wall motion is dyssynchronous, cannot exclude regional wall motion abnormalities Normal right ventricular size, mild right ventricular hypokinesis The left atrium is mildly dilated. Right atrial size is normal Aortic valve is sclerotic and trileaflet without stenosis or regurgitation Mild mitral annular calcification. Moderate mitral regurgitation Normal tricuspid valve with trace to mild regurgitation. Estimated right ventricular systolic pressu re is 35 mmHg Borderline dilated ascending aorta measuring 3.47 cm Wall motion Left Ventricle Left ventricle is moderately dilated. Left ventricular systolic function is severely decreased. There is normal left ventricular wall thickness. Regional wall motion abnormalities are noted. There is no ventricular septal defect visualized. LVEF is 15-20%. Right Ventricle Right ventricle is grossly normal in size. Right ventricle is hypokinetic. The RVSP is 35.2mmHg. Atria Left atrium is mildly dilated. The right atrium size is normal. The interatrial septum is intact with no evidence for an atrial septal defect. Aortic Valve The Aortic valve is sclerotic. Aortic valve is trileaflet. There is no aortic valvular stenosis. No a ortic regurgitation is present. Mitral Valve Mild mitral annular calcification. No evidence of mitral valve stenosis. Moderate mitral regurgitatio n. Tricuspid Valve The tricuspid valve is normal in structure. There is no tricuspid valve stenosis. Trace to mild tricu spid regurgitation. Pulmonic Valve The pulmonary valve is normal in structure. There is no pulmonic valvular stenosis. Trace pulmonic re gurgitation. Great Vessels The aortic root is normal in size. The ascending aorta is mildly dilated. IVC is normal in size and c ollapses >50% with inspiration. Pericardium There is no pericardial effusion. 2D Dimensions IVSD d PLAX 1.04 cm F: 0.6-1.0 LV Vol A2C d MOD 198.3 mL LVPW d PLAX 1.00 cm F: 0.6 - 1.0 LV Vol A4C d MOD 191.0 mL LVID d PLAX 6.37 cm F: 3.8 - 5.2 LA vol/ BSA A2C s A-L 49.4 mL/m2 LVDs 5.90 cm F: 2.2 - 3.5 LA vol/ BSA A4C s A-L 27.1 mL/m2 Ao Root d 2.88 cm F: 2.7 - 3.3 LA Vol/ BSA Biplane s A-L 38.5 mL/m2 RA Area A4C 12.00 cm2 LA Area A4C s MOD 19.29 cm2 RA Vol/ BSA A4C s A-L 13.1 mL/m2 LA Area A2C s MOD 24.74 cm2 Ao Asc Diam d 3.47 cm F: 2.3 - 3.1 LV EF A4C MOD 10.0 % LV EF Teichholz 15.3 % LV EF A2C MOD 15.1 % LVEF (Ayala's) 12.37 % F: 54 - 74 LV EF Biplane MOD 12.4 % LV Volume 147.26 mL F: 46 - 106 SV 24.24 mL LV Volume Index 74.37 mL/m2 F: 29 - 61 SV Index 12.20 mL/m2 LV Vol Biplane MOD 195.9 mL FS 7.00 % M-Mode TAPSE 2.93 cm (M/F) >1.7 LV Diastology MV E' medial 0.045 (>0.07 m/s) E/A Ratio 0.9 LV E/e MED 27.25 (<14) MV E Vmax 1.23 (0.4-1.3 m/s) MV E' lateral 0.065 (>0.1 m/s) MV A Vmax 1.35 (0.4-1.3 m/s) LV E/e LAT 19.00 (<14) MV E/A Ratio 0.90 MV E/E' medial 27.28 MV E/E' lateral 19.02 Aortic Valve LVOT Area 3.16 cm2 AoV Area Vmax 2.68 cm2 LVOT Vmax 1.06 m/s AoV Area/ BSA (Vmax) 1.35 cm2/m2 LVOT Mean Erick. 0.74 m/s UMBERTO Mean Erick. 2.51 cm2 LVOT Peak Grad 4.5 mmHg UMBERTO Mean Erick. Index 1.26 cm2/m2 LVOT Mean Grad 2.5 mmHg LVOT VTI 0.204 m LVOT Diam s 2.00 cm AoV Vmax 1.25 m/s Velocity Ratio 0.84 AoV Mean Erick. 0.94 m/s AoV Peak Grad 6.3 mmHg LVOT SV 64.28 mL AoV Mean Grad 3.8 mmHg AoV VTI 0.233 m AoV Area VTI 2.76 cm2 AoV Area/ BSA (VTI) 1.39 cm/m2 Mitral Valve MV DT 155 (160-240 msec) MR PISA Radius 0.64 cm MV PHT 45 msec MR Aliasing Velocity 0.39 m/s MV Area PHT 4.91 cm2 MR PISA 2.56 cm2 MV VTI 0.385 m MV Area VTI 1.67 (4.0-6.0 cm2) Pulmonary Valve PV Vmax 0.99 (0.5-1.5 m/s) RVOT Peak Gr. 1.55 mmHg PV Peak Grad 3.9 mmHg RVOT Mean Gr. 0.90 mmHg PV Mean Grad 2.0 mmHg RVOT VTI 0.127 m PV VTI 0.196 m RVOT Vmax 0.62 m/s Tricuspid Valve TR Peak Grad 32.1 mmHg TR Vmax 2.84 m/s RA Pressure 3.00 mmHg RVSP (TR) 35.2 mmHg
== END ==
PROVIDERS: PCP Family Medicine; Visit Provider Nurse Practitioner Family
DX: R06.02 Shortness of breath (principal); R60.0 Localized edema; I42.0 Dilated cardiomyopathy; I34.0 Nonrheumatic mitral (valve) insufficiency
CPT/HCPCS: 93306

== ENCOUNTER → 2021-10-30 13:00 | Outpatient (BNVA) | payer MEDICARE, SELFPAY | PROVIDERS: PCP Family Medicine; Referring Provider Family Medicine; Visit Provider Physician Assistant | DX: Z01.818 Encounter for other preprocedural examination (principal); M16.11 Unilateral primary osteoarthritis, right hip ==

== ENCOUNTER → 2021-11-05 01:54 | Outpatient (CLI) | payer MEDICARE, SELFPAY ==
--- NOTE | 2021-11-05 | DI.MAMMO_ITS ---
Exam(s) MAMMO SCREENING EXAM: MAMMO SCREENING CLINICAL HISTORY: SCREENING, Z12.31. TECHNIQUE: Bilateral full field digital CC and MLO mammographic images were obtained with 3D tomosyn thesis and utilizing computer aided detection (CAD). COMPARISON: Prior mammograms were reviewed, the most recent being August 2020. Significant family history. This patient has 2 sisters who were diagnosed with breast cancer. FINDINGS: There has been no significant change in the appearance and distribution of the fibroglandular tissue. There are no new spiculated masses nor malignant appearing microcalcification groups. Multiple unchanged benign-appearing microcalcifications are again noted within a band of tissue towar ds the lateral aspect of the right breast, unchanged. There are no new malignant-appearing microcalc ification groups. There is no significant architectural distortion nor skin thickening-retraction. IMPRESSION: No radiographic evidence of malignancy. Stable benign-appearing findings. BI-RADS Category 2 - Benign Findings Breast Density - Category B - Scattered areas of fibroglandular density Breast density Category C or D implies that the patient has dense breast tissue. Dense breast tissue can make it harder to find cancer on a mammogram. Dense breast tissue is also associated with an incr eased risk of breast cancer. This information about the result of the mammogram report was provided to the patient to raise their awareness. Use this report when you speak with the patient about their risks for breast cancer, which includes their family history. At that time, you may recommend additional screening tests (Ultrasoun d or MRI) as these tests may add significant information. A negative radiographic report should not delay biopsy if a dominant or clinically suspicious mass is present. Up to ten percent of cancers are not identified on mammography. A negative report may reinforce clinical impression. Adenosis and dense breasts may obscure an underlying neoplasm. False positive reports average 6 to 10%. Patient will receive a letter notifying them of these results.
== END ==
PROVIDERS: PCP Family Medicine; Visit Provider Nurse Practitioner Family
DX: Z12.31 Encounter for screening mammogram for malignant neoplasm of breast (principal); Z80.3 Family history of malignant neoplasm of breast; N60.81 Other benign mammary dysplasias of right breast
CPT/HCPCS: 77063; 77067

== ENCOUNTER → 2021-12-04 02:47 | Outpatient (CLI) | payer MEDICARE, SELFPAY ==
--- NOTE | 2021-12-04 08:45 | DI.NM_ITS ---
APPROVED REPORT Exam: Pharmacologic Patient Location: Out-Patient Room/Bed: Stress Nurse: Dulce Posadas RN Ordering Provider:JAVONSri GOMEZ, Contact Number: [phone] BMI: 37.55 Baseline Rhythm: Sinus Rhythm Comment: Left BBB Indications: Heart failure w/ LVEF <30% Medical History Medical History: HTN, LBBB, asthma, anemia, cardiomyopathy, peripheral edema, vertigo Cardiac Medications: Rosuvastatin, Lisinopril, Aspirin, Albuterol, Metoprolol Succinate Allergies: sulfa Cardiac Risk Factors: HTN, Asthma, Obesity Previous Cardiac Procedures: None Pretest Chest Pain Characteristics: None Exercise History: Indeterminate Physical Disabilities: None Lung Sounds: Lungs clear, very diminished in the bases Heart Sounds: Regular Stress Test Details Test: Pharmacologic stress was paired with low level exercise. Reason for pharmacologic stress test: LBBB. Nuclear Acquisition: Rest Tc-99m/Stress Tc-99m 1 day Rest Isotope: Tc-99m Sestamibi. Dose: 10.9 Date: 12/04/2021 Injection Time: 0840 Stress Isotope: Tc-99m Sestamibi. Dose: 32.5 Date: 12/04/2021 Injection Time: 1010 HR Resting HR Supine: 71 bpm Max Heart Rate (APMHR): 147.554405 bpm Resting HR Standin bpm Target HR (85% APMHR): 124.539339 bpm Max HR Achieved: 121 bpm % of APMHR: 82.31 Recovery HR: 83 bpm BP Resting BP Supine: 130/82 mmHg Resting BP Standin/80 mmHg Max BP: 150/80 mmHg Recovery BP: 148/80 mmHg ECG Resting ECG: Sinus Rhythm, LBBB Ectopy: Rare PVC Stress ECG: Sinus Tachycardia, LBBB ST Change: Nondiagnostic V-pacing or LBBB Arrhythmia: Rare PVC Recovery ECG: Sinus Rhythm, LBBB Recovery ST Change: Nondiagnostic V-pacing or LBBB Clinical Stress Symptoms: None Angina Score: None Rate Pressure Product: 13808 Stress ECG Conclusion 1. Resting electrocardiogram showed a left bundle branch block. 2. Patient underwent testing using combination of low-level exercise and pharmacologic stress with re gadenoson 3. Peak heart rate achieved was 82% of predicted. LBBB was present throughout 4. The electrocardiographic portion of the test is nondiagnostic due to an abnormal resting electroca rdiogram 5. See MPI report Stress Test Summary STAGE HR BP SpO2 Symptoms NOTES Supine 71 130/82 Standing 78 140/80 1 min post Lexiscan injection 113 150/80 3 min post Lexiscan injection 121 150/80 6 min post Lexiscan injection 94 148/80 9 min post Lexiscan injection 83 148/80 Pt walked on the treadmill at 0.9 mph during lexiscan injection. Patient tolerated test well, reporte d no symptoms before, during, or after test. MPI Conclusion There is no evidence of myocardial ischemia or prior infarction LV is dilated, diffusely hypocontractile with an estimated ejection fraction of 23% Radiologist Interpretation Radiologist Interpretation by: Billy Greene MD Interpretation Date/Time: 12/04/2021 16:54:44
[2021-12-04] MEDS: Regadenoson 0.4 MG/5 ML SYR IVP (11:33)
== END ==
PROVIDERS: PCP Family Medicine; Visit Provider Nurse Practitioner Family
DX: I50.9 Heart failure, unspecified (principal); I44.7 Left bundle-branch block, unspecified; I10 Essential (primary) hypertension
CPT/HCPCS: 78452; 93016; 93018; 93017; J2785

== ENCOUNTER 2021-12-29 08:43 | Outpatient (REF) | payer MEDICARE, SELFPAY ==
[2021-12-29 15:54] LABS: Anion Gap 3.8 mmol/L (3-11); BUN 26 mg/dL (7-18); CO2 30.2 mmol/L (21.0-32.0); CREATININE 1.3 mg/dL (0.55-1.02); Calcium 9.3 mg/dL (8.5-10.1); Chloride 105 mmol/L (98-107); Estimated GFR 43.42 (mL/min/1.73m2); Glucose 98 mg/dL (74-106); Potassium 4.5 mmol/L (3.5-5.1); Sodium 139 mmol/L (136-145)
[2021-12-29 16:14] LABS: Calculated LDL 73 mg/dL (<100); Cholesterol 153 mg/dL (<200); HDL Cholesterol 70 mg/dL (40-60); Triglyceride 53 mg/dL (<150)
== END 2021-12-29 08:44 | disposition home or self-care (01) ==
LOC: NCHCN 08:43
PROVIDERS: PCP Family Medicine; Visit Provider Nurse Practitioner Family
DX: I10 Essential (primary) hypertension (principal); R89.9 Unspecified abnormal finding in specimens from other organs, systems and tissues; R63.5 Abnormal weight gain
CPT/HCPCS: 80048; 80061

== ENCOUNTER 2022-01-23 01:15 | Outpatient (CLI) | payer MEDICARE, SELFPAY ==
--- OUTSIDE RECORDS SUMMARY | 2022-01-23 01:16 | XMS_ITS | Clinical Summary ---
:1950 Author Organization [facility] Address [address] [place] [address] Care Team Providers Name Role Phone Lolly [...] / Group Dates BCBS [place] BLUE [id number] 2021-Pres [phone] [address] Medicare MEDICARE ADVANTAGE ent [id number] [place] [address] Care Teams Color Consultant Relationship Specialty Start Date End Date Lolly Oliveira MD PCP - General 11/13/08 [address] [place] [address]
--- OUTSIDE RECORDS SUMMARY | 2022-01-23 01:17 | XMS_ITS | Encounter Summary ---
:[address] [facility] Address [address] [place] [address] Care Team Providers Name Role Phone Lolly Oliveira MD Primary Care Provider Encounter Details Date Type Department Care Team Description 03/06/2003 Results Only [facility] - Lolly Mendoza MD conversion [address] [facility] [address] [place], [place] [address] [place] [address] [phone] Social History Tobacco Use Types Packs/Day Years [...] Component Value Ref Test Analysis Performed At [facility] Method Time Signature Pathology CYTOPATHOLOGY REPORT [...] Organization Address City/State/ZIP Code Phon e Number [facility] [address] [place] [address] SERVICES [facility] [address] [place] [address] documented in this encounter Visit Diagnoses Not on filedocumented in this encounter Care Teams Car Bracer Relationship Specialty Start Date End Date Lolly Oliveira MD PCP - General 11/13/08 [address] [place] [address] documented as of this encounter
--- OUTSIDE RECORDS SUMMARY | 2022-01-23 01:17 | XMS_ITS | Encounter Summary ---
:1950 Author Organization [facility] Address [address] [place] [address] Care Team Providers Name Role Phone Lolly Oliveira MD Primary Care Provider Encounter Details Date Type Department Care Team Description 03/21/2019 Lab Requisition [facility] Unknown, Provider, Pathology & Laboratory [facility] [address] [place] [address] [place] [address] Social History Tobacco Use Types Packs/Day Years [...] Signature Vitamin B12 [phone] 03/22/2019 [facility] pg/mL 11:52 EST [facility]ENTER [facility] SERVICES Specimen Anatomical Collection Method Collection Time Receive d Time (Source) Location / / Volume Laterality Blood VENOUS BLOOD / 03/16/2019 9:25 03/21/2019 Unknown EST 21:35 EST Provider Unknown CHEMISTRY & BLOOD GAS ORDERA BLES Performing Organization Address City/State/ZIP Code Phon e Number [facility] [address] [place] [address] SERVICES documented in this encounter Visit Diagnoses Not on filedocumented in this encounter Care Teams Hospice Superintendent Relationship Specialty Start Date End Date Lolly Oliveira MD PCP - General 11/13/08 [address] [place] [address] documented as of this encounter
--- OUTSIDE RECORDS SUMMARY | 2022-01-23 01:17 | XMS_ITS | Encounter Summary ---
:1950 Author Organization [facility] Address [address] [place] [address] Care Team Providers Name Role Phone Lolly Oliveira MD Primary Care Provider Encounter Details Date Type Department Care Team Description 05/29/2002 Results Only [facility] - Lyric Quinn od, Silvia Blandon, MOLD HOISTER conversion [address] [facility] [address] [place] [phone] (Wo rk) Social History Tobacco Use Types [...] Component Value Ref Test Analysis Performed At [facility] Method Time [facility] Pathology CYTOPATHOLOGY REPORT TOVA Report: LIBBY [...] Receive Date: ? 05/31/2002 Provider: ?SILVIA DIEHL MOLD HOISTER Copy to: ? Specimen/Source: ?ThinPrep Pap Test, [...] / Laterality Volume 05/29/2002 05/31/2002 Silvia Diehl MOLD HOISTER PATHOLOGY ORDERABLES Performing Organization Address City/State/ZIP Code Phon e Number [facility] [address] [place] [address] SERVICES [facility] [address] [place] [address] documented in this encounter Visit Diagnoses Not on filedocumented in this encounter Care Teams Sales And Service Associate Relationship Specialty Start Date End Date Lolly Oliveira MD PCP - General 11/13/08 [address] [place] [address] documented as of this encounter
--- OUTSIDE RECORDS SUMMARY | 2022-01-23 01:17 | XMS_ITS | Encounter Summary ---
:1950 Author Organization [facility] Address [address] [place] [address] Care Team Providers Name Role Phone Lolly Oliveira MD Primary Care Provider Encounter Details Date Type Department Care Team Description 04/01/2005 Results Only [facility] - Blair Comer MD conversion [address] [place] [id number] [place] [address] [phone] Social History Tobacco Use Types Packs/Day Years Used Date Smoking Tobacco: Never Assessed Sex Assigned at Date Recorded Not on file documented as of this encounter Plan of Treatment Not on filedocumented as of this encounter Procedures Procedure Name Priority Date/Time Associated Diagnosis Comme [facility] SURGICAL PATHOLOGY Routine 04/01/2005 0:00 EST Re sults for this procedure are i n the results section. documented in this encounter Results SURGICAL PATHOLOGY (04/01/2005 0:00 EST) Component Value Ref Test Analysis Performed At [facility] Method Time Signature Pathology SURGICAL PATHOLOGY REPORT FRANSISCO BORGES Report: Reports generated via electronic interface contain origina l data; LIBBY BLANCO however they are lacking the format of the original report. Caution should be taken when reading/interpreting unformatte d reports. Name: ? JING MOTT ? Accession #: ? [id number] ? : ? 1950 (Age: 54) ??F [...] tissue, submitted intact as ( B). ??(Dr. Lechuga)/[facility] End of Report Specimen (Source) Anatomical Collection Method Collection Time Re ceived Time Location / / Volume Laterality 04/01/2005 04/02/2005 15:2 4 EST Blair Dukes MD PATHOLOGY ORDERABLES Performing Organization Address City/State/ZIP Code Phon e Number [facility] [address] [place] [address] SERVICES [facility] [address] [place] [address] documented in this encounter Visit Diagnoses Not on filedocumented in this encounter Care Teams Alligator Hunter Relationship Specialty Start Date End Date Lolly Oliveira MD PCP - General 11/13/08 [address] [place] [address] documented as of this encounter
--- OUTSIDE RECORDS SUMMARY | 2022-01-23 01:17 | XMS_ITS | Encounter Summary ---
:1950 Author Organization [facility] [place] [address] Care Team Providers Name Role Phone Lolly Oliveira MD Primary Care Provider Encounter Details Date Type Department Care Team Description 07/26/2013 Hospital Encounter Mammography at [facility] Mammographic [facility] [place] [phone] Social History Tobacco Use Types Packs/Day Years [...] microcalcification documented in this encounter Care Teams Supply Chain Generalist Relationship Specialty Start Date End Date Lolly Oliveira MD PCP - General 07/17/13 [address] [place] [address] documented as of this encounter
--- OUTSIDE RECORDS SUMMARY | 2022-01-23 01:17 | XMS_ITS | Encounter Summary ---
:1950 Author Organization [facility] Address [address] [place] [address] Care Team Providers Name Role Phone Lolly Oliveira MD Primary Care Provider Encounter Details Date Type Department Care Team Description 05/27/2021 Lab Requisition [facility] Iman Moran for other Pathology & M, DO general examination Laboratory Medicine - [address] [facility] [address] [place] [phone] Social History Tobacco Use Types Packs/Day Years [...] Component Value Ref Test Analysis Performed At [facility] Method Time Signature Note to The following 05/30/2021 [facility] Patient pathology results 13:31 [facility] have been LABORATORY interpreted by SERVICES your pathologist and may be available to you before your health provider has had the opportunity to review them. Please allow time for your provider to receive these results and explore management options, if applicable. Final A. COLON, POLYP AT 90 CM, BIOPSY/POLYPECTOMY: 05/30/2021 [facility] Diagnosis - Tubular adenoma. 13:31 [facility] SERVICES Attestation By the signature 05/30/2021 [facility] Electronically below, the 13:31 [facility] signed by attending LABORATORY Pippa Mcgee physician HARRIETT Fierro MD on certifies that 2021 at they have 1) 1331 personally conducted a gross and/or microscopic examination of the described specimen(s), and/or personally interpreted the results of laboratory testing of the described specimen(s), and 2) personally rendered or confirmed the above diagnosis. Clinical Severe 05/30/2021 [facility] History diverticula and 13:31 [facility] polypectomy x1 LABORATORY SERVICES Gross A. 05/30/2021 [facility] Description Received in formalin sharmaine d with proper patient identification (initials J, K) and colon polyp x1 at 90 cm is a light pineda polypoid tissue measuring 0.2 x 0.2 x 0.2 cm. Submitted intact in A1. 13:31 [facility]OR[facility]ORY MICKEY CARLOS(ASCP) 05/27/2021 19:11 SERVICES Performing Lab [facility] 05/30/2021 [facility] AL LAB 13:31 [facility] LABORATORY SERVICES Scanned Images 05/30/2021 [facility] 13:31 [facility]ATORY SERVICES Specimen Anatomical Collection Method Collection Time Receive d Time (Source) Location / / Volume Laterality Tissue ENTIRE COLON / 05/27/2021 11:23 2 Unknown EDT 16:33 EDT Iman Moran DO PATHOLOGY ORDERABLES Performing Organization Address City/State/ZIP Code Phon e Number [facility] [address] [place] [address] SERVICES documented in this encounter Visit Diagnoses Diagnosis Encounter for other general examination documented in this encounter Care Teams Business Affairs Manager Relationship Specialty Start Date End Date Lolly Oliveira MD PCP - General 11/13/08 [address] [place], [place] [address] documented as of this encounter
--- OUTSIDE RECORDS SUMMARY | 2022-01-23 01:17 | XMS_ITS | Encounter Summary ---
:1950 [place] [address] Care Team Providers Name Role Phone Lolly Oliveira MD Primary Care Provider Encounter Details Date Type Department Care Team Description 07/26/2013 Hospital Encounter Mammography [place] [facility] [place] [id number] Social History Tobacco Use Types Packs/Day Years [...] Component Value Ref Test Analysis Performed At [facility] Method Time Signature Surgical CERNER Pathology ? [facility] Report ? Provider: ?? ELENO CHRISTIAN ?? Pt. Name: ?? JING MOTT ? Acc #: ?[id number] ?Pt. MRN: ?[id number] ? Col Date: ?? 4 ? /Sex: [...] Partially fragmented, fibrofatty needle core biopsies. ? [facility] ? Provider: ?? ELENO CHRISTIAN ?? Pt. Name: ?? JING MOTT ? Acc #: ?[id number] ?Pt. MRN: ?[id number] ? Col Date: ?? 4 ? /Sex: [...] Organization Address City/State/ZIP [place] [address] [facility] Mammo Specimen Imaging During Biopsy (07/26/2013 11:58 [...] are present on specimen digital X-ray. A [employer] Eviva-Stereo 13 Cylinder marker clip was placed. [...] are present on specimen digital X-ray. A [employer] Eviva-Stereo 13 Cylinder marker clip was placed. [...] microcalcification documented in this encounter Care Teams Fire Code Inspector Relationship Specialty Start Date End Date Lolly Oliveira MD PCP - General 07/17/13 [address] [place] [address] documented as of this encounter
--- OUTSIDE RECORDS SUMMARY | 2022-01-23 01:17 | XMS_ITS | Encounter Summary ---
:1950 Author Organization [facility] [place] [address] Care Team Providers Name Role Phone Unavailable Primary Care Provider Unavailable Encounter Details Date Type Department Care Team Description 07/04/2012 Orders Only Radiology Eleno Christian MD [facility] [place] [address] DIAGNOSTIC RADIOLOGY [phone] [place], [place] [address] (Wo rk) Social History Tobacco Use Types [...] is a Non-reportable exam Eleno Christian MD [facility] ORDERABLES documented in this encounter Visit Diagnoses Not on filedocumented in this encounter
--- OUTSIDE RECORDS SUMMARY | 2022-01-23 01:17 | XMS_ITS | Encounter Summary ---
:1950 Author Organization [facility] Address [address] [place] [address] Care Team Providers Name Role Phone Lolly Oliveiar MD Primary Care Provider Encounter Details Date Type Department Care Team Description 11/13/2020 Lab Requisition [facility] Outr Resulting Lab, Pathology & Laboratory Provider [facility] [address] [place] [address] Social History Tobacco Use Types Packs/Day Years Used Date Smoking Tobacco: Never Assessed Sex Assigned at Date Recorded Not on file documented as of this encounter Plan of Treatment Not on filedocumented as of this encounter Procedures Procedure Name Priority Date/Time Associated Diagnosis Comme nts COVID-19 TEST [facility] Today 11/13/2020 7:30 EDT LAB PCR COVID-19 TESTING Routine 11/13/2020 7:30 EDT Resu lts for this procedure are i n the results section. documented in this encounter Results COVID-19 TEST [facility] LAB PCR (11/13/2020 7:30 EDT) Specimen Anatomical Location Collection Method Collection Time Received Time (Source) / Laterality / Volume Swab ENTIRE NASOPHARYNX 11/13/2020 7:30 2020 / Unknown EDT 20:57 EDT Provider Outr Resulting Lab MICROBIOLOGY - GENERAL ORD ERABLES Performing Organization Address City/State/ZIP Code Phon e Number [facility] [address] [place] [address] SERVICES COVID-19 TESTING (11/13/2020 7:30 EDT) Analysis Performed At Patho logist Time Signature COVID-19 Negative Negative 11/14/2020 [facility] MEDICAL rt-PCR Result 11:46 EDT CENTER [...] using the med SA RS-CoV-2 assay ([employer] on the Med 6800 System Performing Lab Med 6800 [facility] 11/14/2020 11:46 E DT [facility] Lab LABORATORY SERVICES Specimen Anatomical Collection Method Collection Time Receive d Time (Source) Location / / Volume Laterality Swab 11/13/2020 7:30 11/13/2020 EDT 20:57 EDT Provider Outr Resulting Lab MICROBIOLOGY - GENERAL ORD ERABLES Performing Organization Address City/State/ZIP Code Phon e Number [facility] [address] [place] [address] SERVICES documented in this encounter Visit Diagnoses Not on filedocumented in this encounter Care Teams Scarifier Operator Relationship Specialty Start Date End Date Lolly Oliveira MD PCP - General 11/13/08 [address] [place], [place] [address] documented as of this encounter
--- OUTSIDE RECORDS SUMMARY | 2022-01-23 01:17 | XMS_ITS | Encounter Summary ---
:1950 Author Organization [facility] [place] [address] Care Team Providers Name Role Phone Lolly Oliveira MD Primary Care Provider Encounter Details Date Type Department Care Team Description 07/18/2013 Orders Only Radiology Alia Fraire, Mammographic [facility] microcalcification ([address] [facility]) [facility] [address] DIAGNOSTIC [phone] [place] [address] Social History Tobacco Use Types Packs/Day Years [...] are present on specimen digital X-ray. A [employer] Eviva-Stereo 13 Cylinder marker clip was placed. [...] are present on specimen digital X-ray. A [employer] Eviva-Stereo 13 Cylinder marker clip was placed. [...] does not layer and, therefore, are not player services representative of milk of calcium. Again , [...] does not layer and, therefore, are not player services representative of milk of calcium. Again , these have an amorphous and punctate appearance and remain indeterminate. Malcolm reotactic guided biopsy is recommended. Alia Fraire MD IMG MAMMO ORDERABLES documented in this encounter Visit Diagnoses Diagnosis Mammographic microcalcification - Primar y Mammographic microcalcification Mammographic microcalcification Mammographic microcalcification Mammographic microcalcification documented in this encounter Care Teams Associate Professor Of Pathology Relationship Specialty Start Date End Date Lolly Oliveira MD PCP - General 07/17/13 [address] [place] [address] documented as of this encounter
--- OUTSIDE RECORDS SUMMARY | 2022-01-23 01:17 | XMS_ITS | Encounter Summary ---
:1950 Author Organization [facility] [place] [address] Care Team Providers Name Role Phone Lolly Oliveira MD Primary Care Provider Encounter Details Date Type Department Care Team Description 07/26/2013 Orders Only Radiology Eleno Christian MD [facility] [place] [address] DIAGNOSTIC RADIOLOGY [phone] [place] [id number] (Wo rk) Social History Tobacco Use Types [...] on filedocumented in this encounter Care Teams Lead Laying And Gluing Machine Operator Relationship Specialty Start Date End Date Lolly Oliveira MD PCP - General 07/17/13 [address] [place] [address] documented as of this encounter
--- OUTSIDE RECORDS SUMMARY | 2022-01-23 01:17 | XMS_ITS | Encounter Summary ---
:1950 Author Organization [facility] Address [address] [place] [address] Care Team Providers Name Role Phone Lolly Oliveira MD Primary Care Provider Encounter Details Date Type Department Care Team Description 04/25/[address] [facility] Janice Oliveira MD Laboratory Services - [address] [place] [address] [address] [facility] [place] [address] [phone] Social History Tobacco Use Types Packs/Day Years Used Date Smoking Tobacco: Never Assessed Sex Assigned at Date Recorded Not on file documented as of this encounter Plan of Treatment Not on filedocumented as of this encounter Procedures Procedure Name Priority Date/Time Associated Diagnosis Comme [facility] CYTOPATHOLOGY Routine 04/25/2009 0:00 EST Results for this procedure are i n the results section . documented in this encounter Results CYTOPATHOLOGY (04/25/2009 0:00 EST) Component Value Ref Test Analysis Performed At [facility] Pathology CYTOPATHOLOGY REPORT ? TOVA Report: ? [facility] Reports generated via electr onic interface contain original data; ? however they are lacking the format of the original report. ? Caution should be taken when reading/interpreting unformatted reports. ? Name: ? JING MOTT ? Accession #: ? [id number] ? : ? 1950 (Age: 58) ??F [...] Organization Address City/State/ZIP Code Phon e Number [facility] [address] [place] [address] SERVICES [facility] [address] [place] [address] documented in this encounter Visit Diagnoses Not on filedocumented in this encounter Care Teams Electrical Equipment Assembler Relationship Specialty Start Date End Date Lolly Oliveira MD PCP - General 11/13/[address] [place] [address] documented as of this encounter
--- OUTSIDE RECORDS SUMMARY | 2022-01-23 01:17 | XMS_ITS | Encounter Summary ---
:1950 Author Organization [facility] Address [address] [place] [address] Care Team Providers Name Role Phone Lolly Oliveira MD Primary Care Provider Encounter Details Date Type Department Care Team Description 04/17/2005 Results Only [facility] - Lolly Mendoza MD conversion [address] [facility] [address] [place], [place] [address] [place] [address] [phone] Social History Tobacco Use Types Packs/Day Years [...] Value Ref Test [facility] Method Time Signature Pathology CYTOPATHOLOGY REPORT [facility] Report: [facility] Reports generated via electronic interface contain original data; however they are lacking the format of the original report. Caution should be taken when reading/interpreting unformatte d reports. Name: ? JING ALVRAENGA ? Accession #: ? [id number] : ? 1950 (Age: 54) ??F ?Collect Date: ? 04/17/2005 Location: ? [facility] ? Receive Date: ? 04/21/2005 Provider: ?LOLLY OLIVEIRA MD Copy to: ? Specimen/Source: ? ThinPrep Pap Test, Cervix/Endocervix, processed on Aricent GroupPrep Imaging System, with manual evaluation Last Menstrual [...] Code Phon e Number [facility] [address] [place] [address] SERVICES [facility] [address] [place] [address] documented in this encounter Visit Diagnoses Not on filedocumented in this encounter Care Teams Automotive Manager Relationship Specialty Start Date End Date Lolly Oliveira MD PCP - General 11/13/08 [address] [place] [address] documented as of this encounter
--- OUTSIDE RECORDS SUMMARY | 2022-01-23 01:17 | XMS_ITS | Encounter Summary ---
:1950 Author Organization [facility] [place] [address] Care Team Providers Name Role Phone Lolly Oliveira MD Primary Care Provider Encounter Details Date Type Department Care Team Description 10/09/[address] [facility] Nora Meredith LPN [address] [place] [address] Social History Tobacco Use [...] on filedocumented in this encounter Care Teams Hand Crown Pouncer Relationship Specialty Start Date End Date Lolly Oliveira MD PCP - General 07/17/13 [address] [place] [address] documented as of this encounter
--- OUTSIDE RECORDS SUMMARY | 2022-01-23 01:17 | XMS_ITS | Encounter Summary ---
:1950 Author Organization [facility] [place] [address] Care Team Providers Name Role Phone Lolly Oliveira MD Primary Care Provider Encounter Details Date Type Department Care Team Description 04/01/2021 Office Visit Dermatology at [facility] is, [place] MD [address] [facility] Malcolm B DERMATOLOGY [place], [place] [address] [phone] Social History Tobacco Use Types Packs/Day Years [...] psoriasis documented in this encounter Care Teams Religion Department Chair Relationship Specialty Start Date End Date Lolly Oliveira MD PCP - General 07/17/13 [address] [place] [address] documented as of this encounter
--- OUTSIDE RECORDS SUMMARY | 2022-01-23 01:17 | XMS_ITS | Encounter Summary ---
:1950 Author Organization [facility] [place] [address] Care Team Providers Name Role Phone Lolly Oliveira MD Primary Care Provider Encounter Details Date Type Department Care Team Description 07/17/2013 Hospital Encounter XRay [facility] [address] [place] [address] [place] [address] Social History Tobacco Use Types Packs/Day Years Used Date Smoking Tobacco: Never Assessed Sex Assigned at Date Recorded Not on file documented as of this encounter Consult Notes Provider, Hollie - 07/17/2013 7:56 AM EDT documented in this encounter Plan of Treatment Not on filedocumented as of this encounter Visit Diagnoses Not on filedocumented in this encounter Care Teams Pharmacogeneticist Relationship Specialty Start Date End Date Lolly Oliveira MD PCP - General 07/17/13 [address] [place] [address] documented as of this encounter
--- OUTSIDE RECORDS SUMMARY | 2022-01-23 01:17 | XMS_ITS | Clinical Summary ---
:1950 Author Organization [facility] [place] [address] Care Team Providers Name Role Phone Lolly [...] propionate (Flonase) Nare route daily. 50 mcg/actuation [place], Suspension bisacodyl EC 0 05/19/2021 Active (Dulcolax) [...] Phone Addre ss Type Group [employer] [place] BLUE [id number] 2021-Rogerio [phone] [address] [facility] t 22 [id number] [place] [address] Care Teams Automotive Customer Experience Advisor Relationship Specialty Start Date End Date Lolly Oliveira MD PCP - General 07/17/[address] [place] [address]
--- OUTSIDE RECORDS SUMMARY | 2022-01-23 01:17 | XMS_ITS | Encounter Summary ---
:1950 Author Organization [facility] [place] [address] Care Team Providers Name Role Phone Unavailable Primary Care Provider Unavailable Encounter Details Date Type Department Care Team Description 07/14/2013 External Results XRay at [facility] Provider, [address] [place] [address] Social History Tobacco Use Types Packs/Day [...]
--- OUTSIDE RECORDS SUMMARY | 2022-01-23 01:17 | XMS_ITS | Encounter Summary ---
:1950 Author Organization [facility] [place] [address] Care Team Providers Name Role Phone Lolly Oliveira MD Primary Care Provider Encounter Details Date Type Department Care Team Description 07/26/2013 Hospital Mammography at [facility] [address] Mammographic Encounter [facility] Lolly Oliveira MD [address] [place] [address] [place] [address] Social History Tobacco Use Types Packs/Day Years [...] Organization Address City/State/[place] [address] [employer] documented in this encounter Visit Diagnoses Diagnosis [...] Routine documented in this encounter Care Teams Benzene Washer Relationship Specialty Start Date End Date Lolly Oliveira MD PCP - General 07/17/13 [address] [place] [address] documented as of this encounter
--- OUTSIDE RECORDS SUMMARY | 2022-01-23 01:17 | XMS_ITS | Encounter Summary ---
:1950 Author Organization [place] [address] Care Team Providers Name Role Phone Lolly Oliveira MD Primary Care Provider Encounter Details Date Type Department Care Team Description 01/14/2022 Telephone Dermatology at [facility] Nora Meredith LPN [address] [place] [address] Social History Tobacco Use [...] return to phototherapy. New order sent to [facility]. Reviewed with patient Dr. Mar recommendation. She agrees with plan of care. Advised patient order will be sent to [facility]. She voiced understanding. documented in this encounter Plan of Treatment Not on filedocumented as of this encounter Visit Diagnoses Not on filedocumented in this encounter Care Teams Viscosity Tester Relationship Specialty Start Date End Date Lolly Oliveira MD PCP - General 07/17/13 [address] [place] [address] documented as of this encounter
--- OUTSIDE RECORDS SUMMARY | 2022-01-23 01:17 | XMS_ITS | Encounter Summary ---
:1950 Author Organization [facility] [place] [address] Care Team Providers Name Role Phone Lolly Oliveira MD Primary Care Provider Encounter Details Date Type Department Care Team Description 07/17/2013 Orders Only Radiology Lolly Ocampo MD [facility] [address] [facility] [place] [address] [place] [address] [phone] Social History Tobacco Use Types Packs/Day Years [...] MAMMOGRAMS (PERFORMED ON 07/06/13 AND 07/14/13) FROM [facility] DATED 07/17/13: ?? DIAGNOSTIC IMAGING SUMMARY: ?? [...] (PE RFORMED ON 07/06/13 AND 07/14/13) FROM [facility] DATED 07/17/13: DIAGNOSTIC IMAGING SUMMARY: RIGHT BREAST [...] on filedocumented in this encounter Care Teams Adjunct Faculty Relationship Specialty Start Date End Date Lolly Oliveira MD PCP - General 07/17/13 [address] [place] [address] documented as of this encounter
--- OUTSIDE RECORDS SUMMARY | 2022-01-23 01:17 | XMS_ITS | Encounter Summary ---
:1950 Author Organization [facility] [place] [address] Care Team Providers Name Role Phone Lolly Oliveira MD Primary Care Provider Reason for Visit Reason Comments Skin Check Encounter Details Date Type Department Care Team Description 11/23/2014 Office Visit Dermatology at Clay Ramírez MD Dermatofibroma; [place] [address] [facility] [address] [place]; [address] [facility] [address] Malcolm [place]ERMAT[place] [address] [place], [place] [phone] (Wo rk) [address] [phone] Social History Tobacco Use Types Packs/Day Years [...] dyschromia documented in this encounter Care Teams Stamp Classifier Relationship Specialty Start Date End Date Lolly Oliveira MD PCP - General 07/17/13 [address] [place] [address] documented as of this encounter
--- OUTSIDE RECORDS SUMMARY | 2022-01-23 01:17 | XMS_ITS | Encounter Summary ---
:1950 Author Organization [facility] [place] [address] Care Team Providers Name Role Phone Lolly Oliveira MD Primary Care Provider Encounter Details Date Type Department Care Team Description 06/29/2011 Orders Only Radiology Eleno Christian MD [facility] [place] [address] DIAGNOSTIC RADIOLOGY [phone] [place] [address] (Wo rk) Social History Tobacco Use Types [...] filedocumented in this encounter Care Teams Clinical Services Assistant Relationship Specialty Start Date End Date Lolly Oliveira MD PCP - General 07/17/13 [address] [place] [address] documented as of this encounter
--- OUTSIDE RECORDS SUMMARY | 2022-01-23 01:17 | XMS_ITS | Encounter Summary ---
:1950 Author Organization [facility] Address [address] [place] [address] Care Team Providers Name Role Phone Unavailable Primary Care Provider Unavailable Encounter Details Date Type Department Care Team Description 11/07/2008 Orders Only [facility] Kenneth Krishnan MD Laboratory Services - [address] [place] [address] [place] [address] [phone] Social History Tobacco Use Types Packs/Day Years Used Date Smoking Tobacco: Never Assessed Sex Assigned at Date Recorded Not on file documented as of this encounter Plan of Treatment Not on filedocumented as of this encounter Procedures Procedure Name Priority Date/Time Associated Diagnosis Comme [facility] SURGICAL PATHOLOGY Routine 11/07/2008 0:00 EDT Re sults for this procedure are i n the results section. documented in this encounter Results SURGICAL PATHOLOGY (11/07/2008 0:00 EDT) Component Value Ref Test Analysis Performed At [facility] Method Time Signature Pathology SURGICAL PATHOLOGY REPORT ? J LUIS HER Report: Reports generated via electr [employer] interface contain original data; ? [facility] however they are lacking the format of the original report. ? Caution should be taken when reading/interpreting unformatted reports. ? Name: ? LYLE, JING ? Accession #: ? [id number] ? : ? 1950 (Age: 58) ??F [...] e Number [facility] [address] [place] [address] SERVICES [facility] [address] [place] [address] documented in this encounter Visit Diagnoses Not on filedocumented in this encounter
--- OUTSIDE RECORDS SUMMARY | 2022-01-23 01:17 | XMS_ITS | Encounter Summary ---
:1950 Author Organization [facility] Address [address] [place] [address] Care Team Providers Name Role Phone Lolly Oliveira MD Primary Care Provider Encounter Details Date Type Department Care Team Description 06/16/2012 Results Only [facility] Janice Oliveira MD Laboratory Services - [address] [place] [address] [address] [facility] [place] [address] [phone] Social History Tobacco Use Types Packs/Day Years [...] - [facility] Method Time Signature Pathology CYTOPATHOLOGY REPORT [...] Address City/State/ZIP Code Phon e Number [facility] [address] [place] [address] SERVICES [facility] [address] [place] [address] documented in this encounter Visit Diagnoses Not on filedocumented in this encounter Care Teams Brake Lining Curer Relationship Specialty Start Date End Date Lolly Oliveira MD PCP - General 11/13/08 [address] [place] [address] documented as of this encounter
--- OUTSIDE RECORDS SUMMARY | 2022-01-23 01:17 | XMS_ITS | Encounter Summary ---
:1950 Author Organization [facility] Address [address] [place] [address] Care Team Providers Name Role Phone Lolly Oliveira MD Primary Care Provider Encounter Details Date Type Department Care Team Description 02/11/2021 Lab Requisition [facility] Outr Resulting Lab, Pathology & Laboratory Provider [facility] [address] [place] [address] Social History Tobacco Use Types Packs/Day [...] Organization Address City/State/ZIP Code Phon e Number [facility] [address] [place] [address] SERVICES COVID-19 TESTING (02/11/2021 8:00 EST) [facility]-19 Negative Negative 02/12/2021 [facility] MEDICAL rt-PCR Result 14:17 EST CENTER LABORATORY [...] using the med SA RS-CoV-2 assay ([employer] on the Med 6800 System Performing Lab Med 6800 [facility] 02/12/2021 14:17 E [facility] Lab LABORATORY SERVICES Specimen Anatomical Collection Method Collection Time Receive d Time (Source) Location / / Volume Laterality Swab 02/11/2021 8:00 02/11/2021 EST 22:22 EST Provider Outr Resulting Lab MICROBIOLOGY - GENERAL ORD ERABLES Performing Organization Address City/State/ZIP Code Phon e Number [facility] [address] [place] [address] SERVICES documented in this encounter Visit Diagnoses Not on filedocumented in this encounter Care Teams Pathology Technologist Relationship Specialty Start Date End Date Lolly Oliveira MD PCP - General 11/13/08 [address] [place], [place] [address] documented as of this encounter
--- OUTSIDE RECORDS SUMMARY | 2022-01-23 01:17 | XMS_ITS | Encounter Summary ---
:1950 Author Organization [facility] Address [address] [place] [address] Care Team Providers Name Role Phone Lolly Oliveira MD Primary Care Provider Encounter Details Date Type Department Care Team Description 05/02/2004 Results Only [facility] - Lolly Mendoza MD conversion 201 [facility] [address] [place], [place] [address] [place] [address] [id number] [phone] Social History Tobacco Use Types Packs/Day Years [...] PAPILLOMA VIRUS DNA TEST (05/02/2004 9:32 EST) [facility] Method Time Signature Specimen Cervix, BERNARDO Description ThinPrep [facility] vial Result Negative for TOVA HPV types [facility] 16, 18, 31, 33, 35, 39, 45, 51, 52, 56, 58, 59, and 68. Report Status Final TOVA [id number] [facility] Specimen Anatomical Collection Method Collection Time Receive d Time (Source) Location / / Volume Laterality 05/02/2004 9:32 05/10/2004 9 :32 EST EST Lolly Oliveira MD MICROBIOLOGY - GENERAL ORDER LOREN Performing Organization Address City/State/ZIP Code Phon e Number [facility] [address] [place] [address] SERVICES [facility] [address] [place] [address] CYTOPATHOLOGY (05/02/2004 0:00 EST) Component Value Ref Test Analysis Performed At [facility] Range Method Time Signature Pathology CYTOPATHOLOGY [...] Organization Address City/State/ZIP Code Phon e Number [facility] [address] [place] [address] SERVICES [facility] [address] [place] [address] documented in this encounter Visit Diagnoses Not on filedocumented in this encounter Care Teams Gas Meter Repair Supervisor Relationship Specialty Start Date End Date Lolly Oliveira MD PCP - General 11/13/08 [address] [place] [address] documented as of this encounter
--- OUTSIDE RECORDS SUMMARY | 2022-01-23 01:17 | XMS_ITS | Encounter Summary ---
:1950 Author Organization [facility] [place] [address] Care Team Providers Name Role Phone Lolly Oliveira MD Primary Care Provider Encounter Details Date Type Department Care Team Description 07/20/2013 Hospital Mammography at [facility] COX Mammographic Encounter [facility] Lolly Oliveira MD [address] [place] [address] [place] [address] Social History Tobacco Use Types [...] does not layer and, therefore, are not reimbursement representative of milk of calcium. Again , [...] does not layer and, therefore, are not reimbursement representative of milk of calcium. Again , these have an amorphous and punctate appearance and remain indeterminate. Malcolm reotactic guided biopsy is recommended. Alia Fraire MD IMG MAMMO ORDERABLES documented in this encounter Visit Diagnoses Diagnosis Mammographic microcalcification documented in this encounter Care Teams Bilingual Student Tutor Relationship Specialty Start Date End Date Lolly Oliveira MD PCP - General 07/17/13 [address] [place] [address] documented as of this encounter
--- OUTSIDE RECORDS SUMMARY | 2022-01-23 01:17 | XMS_ITS | Encounter Summary ---
:1950 Author Organization [facility] Address [address] [place] [address] Care Team Providers Name Role Phone Lolly Oliveira MD Primary Care Provider Encounter Details Date Type Department Care Team Description 02/20/2020 Lab Requisition [facility] Outr Resulting Lab, Pathology & Laboratory Provider [facility] [address] [place] [address] Social History Tobacco Use Types [...] TEST (02/19/2020 16:30 EST) Analysis Performed At [facility] Time Signature COVID-19 NEGATIVE Negative 02/22/2020 BROAD [...] City/State/ZIP Code Phon e Number [facility] [place], [place] COVID-19 TESTING (02/19/2020 16:30 EST) Analysis Performed At [facility] Time Signature COVID-19 NEGATIVE Negative 02/22/2020 BROAD [...] Administration's Emergency Use Authorization. Performing Lab [facility] 02/22/2020 23:4 1 EST [facility] SERVICES Specimen Anatomical Collection Method Collection Time Receive d Time (Source) Location / / Volume Laterality Swab 02/19/2020 16:30 02/20/2020 EST 16:09 EST Provider Outr Resulting Lab MICROBIOLOGY - GENERAL ORD ERABLES Performing Organization Address City/State/ZIP Code Phon e Number [facility] [address] [place] [address] SERVICES [facility] [place], [place] documented in this encounter Visit Diagnoses Not on filedocumented in this encounter Care Teams Gathering Worker Relationship Specialty Start Date End Date Lolly Oliveira MD PCP - General 11/13/08 [address] [place] [address] documented as of this encounter
[2022-01-23 10:02] LABS: Anion Gap 7.5 mmol/L (3-11); BUN 25 mg/dL (7-18); CO2 30.5 mmol/L (21.0-32.0); CREATININE 1.3 mg/dL (0.55-1.02); Calcium 9.6 mg/dL (8.5-10.1); Chloride 100 mmol/L (98-107); Estimated GFR 43.42 (mL/min/1.73m2); Glucose 100 mg/dL (74-106); Potassium 4.3 mmol/L (3.5-5.1); Sodium 138 mmol/L (136-145)
== END 2022-01-23 01:16 | disposition home or self-care (01) ==
LOC: LBO 01:15
PROVIDERS: PCP Family Medicine; Visit Provider Family Medicine
DX: I50.9 Heart failure, unspecified (principal)
CPT/HCPCS: 36415; 80048

== ENCOUNTER 2022-01-27 08:29 | Outpatient (CLI) | payer MEDICARE, SELFPAY ==
--- NOTE | 2022-01-27 08:15 | RT.EKG_ITS ---
APPROVED REPORT Exam: Resting ECG Reason for Exam: palpitations Patient Location: O HR:83 bpm ECG Measurements Heart Rate 83 AXIS RI 151 P 37 QRSd 173 QRS 19 QT 441 T 209 QTc 519 Conclusion Sinus rhythm...normal P axis, V-rate 50- 99 Left bundle branch block...QRSd>120, broad/notched R
== END 2022-01-27 08:30 | disposition home or self-care (01) ==
LOC: DI.CARD 08:30
PROVIDERS: PCP Family Medicine; Visit Provider Internal Medicine Cardiovascular Disease
DX: R00.2 Palpitations (principal); I44.7 Left bundle-branch block, unspecified
CPT/HCPCS: 93010

== ENCOUNTER → 2022-01-27 10:55 | Outpatient (BNVA) | payer MEDICARE, SELFPAY | PROVIDERS: PCP Family Medicine; Referring Provider Family Medicine; Visit Provider Internal Medicine Cardiovascular Disease | DX: I42.9 Cardiomyopathy, unspecified (principal); R00.2 Palpitations | CPT/HCPCS: 93005; 99214 ==

== ENCOUNTER 2022-02-04 09:00 | Outpatient (RCR) | payer MEDICARE, SELFPAY ==
--- OUTSIDE RECORDS SUMMARY | 2022-01-16 13:14 | XMS_ITS | Encounter Summary ---
:1950 Author Organization [facility] Address [address] [place] [address] Care Team Providers Name Role Phone Lolly Oliveira MD Primary Care Provider Encounter Details Date Type Department Care Team Description 04/12/2007 Results Only [facility] - Lolly Mendoza MD conversion [address] [facility] [address] [place], [place] [id number] [place] [id number] [phone] Social History Tobacco Use Types Packs/Day Years Used Date Smoking Tobacco: Never Assessed Sex Assigned at Date Recorded Not on file documented as of this encounter Plan of Treatment Not on filedocumented as of this encounter Procedures Procedure Name Priority Date/Time Associated Diagnosis Comme nts CYTOPATHOLOGY Routine 04/12/2007 0:00 EST Results for this procedure are i n the results section . documented in this encounter Results CYTOPATHOLOGY (04/12/2007 0:00 EST) Component Value Ref Test Analysis Performed At [facility] Method Time Signature Pathology CYTOPATHOLOGY REPORT [facility] Report: [facility] Reports generated via electronic interface contain original data; however they are lacking the format of the original report. Caution should be taken when reading/interpreting unformatte d reports. Name: ? JING ALVARENGA ? Accession #: ? [id number] : ? 1950 (Age: 56) ??F ?Collect Date: ? 04/12/2007 Location: ? [facility] ? Receive Date: ? 04/13/2007 Provider: ?LOLLY OLIVEIRA MD Copy to: ? Specimen/Source: ? ThinPrep Pap Test, Cervix/Endocervix, processed on [email or web address] ThinPrep Imaging System, with manual evaluation Last Menstrual Period: ? Years Ago Previous Gynecologic Pathology: ? Yes: ABN Pap, Cone Bx for ABN Cells years ago Treatment History: ? Cone biopsy: for abnl cells years ago Other: ? HPVA - HPV testing requested if ASC-US on the current ThinPr ep Pap test. ? SPECIMEN ADEQUACY ? Satisfactory for Evaluation - assessment of transformation zone component not appl icable ( e.g. atrophy, vaginal sample, hysterectomy) GENERAL CATEGORIZATION ? Negative for Intraepithelial Lesion or Malignancy ? Document reviewed and electronically signed by: ? Anahy Kelly, [facility](ASCP) ? Report Date: ??04/18/2007 12:31 End of Report Specimen (Source) Anatomical Location Collection Method / Collectio n Time Received Time / Laterality Volume 04/12/2007 04/13/2007 Lolly Oliveira MD PATHOLOGY ORDERABLES Performing Organization Address City/State/ZIP Code Phon e Number [facility] [address] [place] [address] SERVICES [facility] [address] [place] [address] documented in this encounter Visit Diagnoses Not on filedocumented in this encounter Care Teams Pellet Post Inspector Relationship Specialty Start Date End Date Lolly Oliveira MD PCP - General 11/13/08 [address] [place], [place] [address] documented as of this encounter
--- OUTSIDE RECORDS SUMMARY | 2022-01-16 13:14 | XMS_ITS | Clinical Summary ---
:1950 Author Organization [facility] [place] [address] Care Team Providers Name Role Phone Lolly Oliveira MD Primary Care Provider Allergies Active Allergy Reactions Severity Noted Date Comments Sulfa (Sulfonamide Antibiotics) 5 Medications Medication Sig Dispensed Refills Start Date End Date Status lisinopril Take 2.5 mg by 0 Acti ve (PRINIVIL;ZESTRIL) mouth daily. 2.5 mg Tablet turmeric-turmeric Take 1 tablet by 0 Active root extract 450-50 mouth daily. mg Capsule albuteroL 90 Inhale 2 puffs into 0 Active mcg/actuation HFA the lungs every 6 Aerosol Inhaler hours as needed for Wheezing. Use with spacer triamcinolone Apply topically 2 0 Active (Kenalog) 0.1 % Cream times daily. fluticasone 1 spray by Each 0 Ac tive propionate (Flonase) Nare route daily. 50 mcg/actuation [place], Suspension bisacodyl EC 0 05/19/2021 Active (Dulcolax) 5 mg Tablet, Delayed Release (E.C.) polyethylene glycoL CONSUME 238 GRAMS 0 05/19/2021 Active (Miralax) 17 BY MOUTH gram/dose Powder DIRECTED PER COLONOSCOPY INSTRUCTIONS FOR COLONOSCOPY PREP. Active Problems Problem Noted Date Dermatofibroma 11/23/2014 Nevus 11/23/2014 Solar lentigo 11/23/2014 Encounters Date Type Specialty Care Team Description 01/14/2022 Telephone Dermatology Nora Meredith LPN from Last 3 Months Social History Tobacco Use Types Packs/Day Years Used Date Never Smoker Sex Assigned at Date Recorded Not on file Plan of Treatment Health Maintenance Due Date Last Done Comments Covid-19 Vaccine (#1) 02/08/1951 Hepatitis C Screening 1966 Tdap adult 08/10/1967 Tetanus vaccine 08/10/1967 Breast Cancer Share Decision Needed 1988 Colonoscopy 1993 Breast Cancer screening 1998 Zoster vaccine (1 of 2) 1998 Advance Directive 08/10/2003 Bone Density Scan 2013 Pneumoccocal Vaccine: 65+ (1 - PCV) 2013 Influenza (Flu) vaccine (1 of 1 - Influenza standard 11/06/2021 series) Insurance Payer Benefit Plan / Subscriber ID Effective Dates Phone Addre ss Type Group [employer] [place] [place]UE [id number] 2021-Rogerio [phone] [address] [place] [employer] t 22 [id number] [place] [address] Care Teams Junior Financial Analyst Relationship Specialty Start Date End Date Lolly Oliveira MD PCP - General 07/17/[address] [place] [phone]
--- OUTSIDE RECORDS SUMMARY | 2022-01-16 13:14 | XMS_ITS | Encounter Summary ---
:1950 Author Organization [facility] Address [address] [place] [address] Care Team Providers Name Role Phone Lolly Oliveira MD Primary Care Provider Encounter Details Date Type Department Care Team Description 05/29/2002 Results Only [facility] - Lyric Quinn od, Silvia Blandon, AREA MECHANIC conversion [address] [facility] [address] [place] [phone] (Wo rk) Social History Tobacco Use Types Packs/Day Years Used Date Smoking Tobacco: Never Assessed Sex Assigned at Date Recorded Not on file documented as of this encounter Plan of Treatment Not on filedocumented as of this encounter Procedures Procedure Name Priority Date/Time Associated Diagnosis Comme nts CYTOPATHOLOGY Routine 05/29/2002 0:00 EST Results for this procedure are i n the results section . documented in this encounter Results CYTOPATHOLOGY (05/29/2002 0:00 EST) Component Value Ref Test Analysis Performed At [facility] Method Time [facility] Pathology CYTOPATHOLOGY REPORT TOVA Report: [facility] Reports generated via electronic interface contain original data; however they are lacking the format of the original report. Caution should be taken when reading/interpreting unformatte d reports. Name: ? JING ALVARENGA ? Accession #: ? [id number] : ? 1950 (Age: 51) ??F ?Collect Date: ? 05/29/2002 Location: ? [facility] ? Receive Date: ? 05/31/2002 Provider: ?SILVIA DIEHL AREA MECHANIC Copy to: ? Specimen/Source: ?ThinPrep Pap Test, Cervix/Endoce rvix Last Menstrual Period: ? Hormonal/Contraceptive Status: ? Progesterone: Estridol ? SPECIMEN ADEQUACY ? Satisfactory for Evaluation - transformation zone component absent GENERAL CATEGORIZATION ? Negative for Intraepithelial Lesion or Malignancy INTERPRETATION ? Fungal organisms pres ent morphologically consistent with Shahnaz species. ? Document reviewed and electronically signed by: ? BERHANE Faulkner(ASCP) ? Report Date: ??06/02/2002 16:07 End of Report Specimen (Source) Anatomical Location Collection Method / Collectio n Time Received Time / Laterality Volume 05/29/2002 05/31/2002 Silvia Diehl AREA MECHANIC PATHOLOGY ORDERABLES Performing Organization Address City/State/ZIP Code Phon e Number [facility] [address] [place] [address] SERVICES [facility] [address] [place] [address] documented in this encounter Visit Diagnoses Not on filedocumented in this encounter Care Teams Credit Rating Inspector Relationship Specialty Start Date End Date Lolly Oliveira MD PCP - General 11/13/08 [address] [place] [address] documented as of this encounter
--- OUTSIDE RECORDS SUMMARY | 2022-01-16 13:14 | XMS_ITS | Encounter Summary ---
:1950 Author Organization [facility] Address [address] [place] [address] Care Team Providers Name Role Phone Lolly Oliveira MD Primary Care Provider Encounter Details Date Type Department Care Team Description 06/16/2012 Results Only [facility] Janice Oliveira MD Laboratory Services - [address] [place] [address] [address] [facility] [place] [address] [phone] Social History Tobacco Use Types Packs/Day Years Used Date Smoking Tobacco: Never Assessed Sex Assigned at Date Recorded Not on file documented as of this encounter Plan of Treatment Not on filedocumented as of this encounter Procedures Procedure Name Priority Date/Time Associated Diagnosis Comme nts PAP TEST- RESULT Routine 06/16/2012 0:00 EDT Resu lts for this ONLY procedure are i n the results section. documented in this encounter Results PAP TEST- RESULT ONLY (06/16/2012 0:00 EDT) Component Value Ref Test Analysis Performed At [facility] Method Time [facility] Pathology CYTOPATHOLOGY REPORT TOVA Report: [facility] Reports generated via electronic interface contain original data; however they are lacking the format of the original report. Caution should be taken when reading/interpreting unformatte d reports. Name: ? JING ALVARENGA ? Accession #: ? [id number] : ? 1950 (Age: 61) ??F ?Collect Date: ? 06/16/2012 Location: ? [facility] ? Receive Date: ? 06/17/2012 Provider: ?LOLLY OLIVEIRA MD Copy to: ? Specimen/Source: ? Pap Test, Cervix/Endocervix, ThinPrep Imaging System with manual evaluation Last Menstrual Period: ? Previous Gynecologic Pathology: ? Yes: history of abnormal pap with negative HPV ? SPECIMEN ADEQUACY ? Satisfactory for Evaluation - assessment of transformation zone component not appl icable ( e.g. atrophy, vaginal sample, hysterectomy) - scant squamous epithelial component secondary to excessive inflammation GENERAL CATEGORIZATION ? Negative for Intraepithelial Lesion or Malignancy ? Document reviewed and electronically signed by: ? BERHANE Bowser(ASCP) ? Report Date: ??06/21/2012 11:04 End of Report Specimen (Source) Anatomical Location Collection Method / Collectio n Time Received Time / Laterality Volume 06/16/2012 06/17/2012 Lolly Oliveira MD PATHOLOGY ORDERABLES Performing Organization Address City/State/ZIP Code Phon e Number [facility] [address] [place] [address] SERVICES [facility] [address] [place] [address] documented in this encounter Visit Diagnoses Not on filedocumented in this encounter Care Teams Papeterie Table Assembler Relationship Specialty Start Date End Date Lolly Oliveira MD PCP - General 11/13/08 [address] [place] [address] documented as of this encounter
--- OUTSIDE RECORDS SUMMARY | 2022-01-16 13:14 | XMS_ITS | Encounter Summary ---
:1950 Author Organization [facility] Address [address] [place] [address] Care Team Providers Name Role Phone Lolly Oliveira MD Primary Care Provider Encounter Details Date Type Department Care Team Description 05/27/2021 Lab Requisition [facility] Iman Moran for other Pathology & M, DO general examination Laboratory Medicine - [address] [facility] [address] [place] [phone] Social History Tobacco Use Types Packs/Day Years Used Date Smoking Tobacco: Never Assessed Sex Assigned at Date Recorded Not on file documented as of this encounter Plan of Treatment Not on filedocumented as of this encounter Procedures Procedure Name Priority Date/Time Associated Diagnosis Comme nts SURGICAL PATHOLOGY Today 05/27/2021 11:23 Encounter for othe r Results for this EDT general examination procedur e are in the results section. documented in this encounter Results SURGICAL PATHOLOGY (05/27/2021 11:23 EDT) Component Value Ref Test Analysis Performed At [facility] Range Method Time Signature Note to The following 05/30/2021 [facility] MEDICAL Patient pathology results 13:31 [facility] have been LABORATORY interpreted by SERVICES your pathologist and may be available to you before your health provider has had the opportunity to review them. Please allow time for your provider to receive these results and explore management options, if applicable. Final A. COLON, POLYP AT 90 CM, BIOPSY/POLYPECTOMY: 05/30/2021 [facility] MED[facility] Diagnosis - Tubular adenoma. 13:31 [facility]T [facility] LABORATORY SERVICES Attestation By the signature 05/30/2021 [facility] MEDICA L Electronically below, the 13:31 [facility] signed by attending LABORATORY Pippa Mcgee physician HARRIETT Fierro MD on certifies that 2021 at they have 1) 1331 personally conducted a gross and/or microscopic examination of the described specimen(s), and/or personally interpreted the results of laboratory testing of the described specimen(s), and 2) personally rendered or confirmed the above diagnosis. Clinical Severe 05/30/2021 [facility] MEDICAL History diverticula and 13:31 [facility] polypectomy x1 LABORATORY SERVICES Gross A. 05/30/2021 [facility] MEDICAL Description Received in formalin sharmaine d with proper patient identification (initials J, K) and colon polyp x1 at 90 cm is a light pineda polypoid tissue measuring 0.2 x 0.2 x 0.2 cm. Submitted intact in A1. 13:31 [facility] LABORATORY MICKEY CARLOS(ASCP) 05/27/2021 19:11 SERVICES Performing Lab [facility] 05/30/2021 [facility] MEDIC AL LAB 13:31 [facility] LABORATORY SERVICES Scanned Images 05/30/2021 [facility] MEDICAL 13:31 [facility] LABORATORY SERVICES Specimen Anatomical Collection Method Collection Time Receive d Time (Source) Location / / Volume Laterality Tissue ENTIRE COLON / 05/27/2021 11:23 2 Unknown EDT 16:33 EDT Iman Moran DO PATHOLOGY ORDERABLES Performing Organization Address City/State/ZIP Code Phon e Number [facility] [address] [place] [address] SERVICES documented in this encounter Visit Diagnoses Diagnosis Encounter for other general examination documented in this encounter Care Teams Scanner Supervisor Relationship Specialty Start Date End Date Lolly Oliveira MD PCP - General 11/13/08 [address] [place], [place] [address] documented as of this encounter
--- OUTSIDE RECORDS SUMMARY | 2022-01-16 13:14 | XMS_ITS | Encounter Summary ---
:1950 Author Organization [facility] Address [address] [place] [address] Care Team Providers Name Role Phone Lolly Oliveira MD Primary Care Provider Encounter Details Date Type Department Care Team Description 03/06/2003 Results Only [facility] - Lolly Mendoza MD conversion [address] [facility] [address] [place], [place] [address] [place] [address] [phone] Social History Tobacco Use Types Packs/Day Years Used Date Smoking Tobacco: Never Assessed Sex Assigned at Date Recorded Not on file documented as of this encounter Plan of Treatment Not on filedocumented as of this encounter Procedures Procedure Name Priority Date/Time Associated Diagnosis Comme nts CYTOPATHOLOGY Routine 03/06/2003 0:00 EST Results for this procedure are i n the results section . documented in this encounter Results CYTOPATHOLOGY (03/06/2003 0:00 EST) Component Value Ref Test Analysis Performed At [facility] Method Time Signature Pathology CYTOPATHOLOGY REPORT TOVA Report: [facility] Reports generated via electronic interface contain original data; however they are lacking the format of the original report. Caution should be taken when reading/interpreting unformatte d reports. Name: ? JING ALVARENGA ? Accession #: ? [id number] : ? 1950 (Age: 52) ??F ?Collect Date: ? 03/06/2003 Location: ? [facility] ? Receive Date: ? 03/09/2003 Provider: ?LOLLY OLIVEIRA MD Copy to: ? Specimen/Source: ?ThinPrep Pap Test, Cervix/Endoce rvix Last Menstrual Period: ? Many Years Ago Treatment History: ? Cone biopsy ? SPECIMEN ADEQUACY ? Satisfactory for Evaluation - transformation zone component absent GENERAL CATEGORIZATION ? Negative for Intraepithelial Lesion or Malignancy ? Document reviewed and electronically signed by: ? BERHANE Faulkner(ASCP) ? Report Date: ??03/13/2003 15:57 End of Report Specimen (Source) Anatomical Location Collection Method / Collectio n Time Received Time / Laterality Volume 03/06/2003 03/09/2003 Lolly Oliveira MD PATHOLOGY ORDERABLES Performing Organization Address City/State/ZIP Code Phon e Number [facility] [address] [place] [address] SERVICES [facility] [address] [place] [address] documented in this encounter Visit Diagnoses Not on filedocumented in this encounter Care Teams Stacker Operator Relationship Specialty Start Date End Date Lolly Oliveira MD PCP - General 11/13/08 [address] [place] [address] documented as of this encounter
--- OUTSIDE RECORDS SUMMARY | 2022-01-16 13:14 | XMS_ITS | Encounter Summary ---
:1950 Author Organization [facility] Address [address] [place] [address] Care Team Providers Name Role Phone Lolly Oliveira MD Primary Care Provider Encounter Details Date Type Department Care Team Description 02/11/2021 Lab Requisition [facility] Outr Resulting Lab, Pathology & Laboratory Provider [facility] [address] [place] [address] Social History Tobacco Use Types Packs/Day Years Used Date Smoking Tobacco: Never Assessed Sex Assigned at Date Recorded Not on file documented as of this encounter Plan of Treatment Not on filedocumented as of this encounter Procedures Procedure Name Priority Date/Time Associated Diagnosis Comme nts COVID-19 TEST [facility] Today 02/11/2021 8:00 EST LAB PCR COVID-19 TESTING Routine 02/11/2021 8:00 EST Resu lts for this procedure are i n the results section. documented in this encounter Results COVID-19 TEST [facility] PCR (02/11/2021 8:00 EST) Specimen Anatomical Collection Method Collection Time Receive d Time (Source) Location / / Volume Laterality Swab 02/11/2021 8:00 02/11/2021 EST 22:22 EST Provider Outr Resulting Lab MICROBIOLOGY - GENERAL ORD ERABLES Performing Organization Address City/State/ZIP Code Phon e Number [facility] [address] [place] [address] SERVICES COVID-19 TESTING (02/11/2021 8:00 EST) [facility] COVID-19 Negative Negative 02/12/2021 [facility] rt-PCR Result 14:17 EST CENTER LABORATORY SERVICES Comment: This test has not been FDA cleared or ap proved. This test has been authorized by FDA under an EUA for use by authorized laboratories. This test has been authorized only for detection of nucleic acid fro m 2019-nCoV, not for any other viruses o r pathogens. This test is only authorized for the duration of the declaration that circumstances exist justifying the authorization of emergency use of in vitro d iagnostic tests for detection and/or eldon gnosis of 2019-nCoV under section 564(b)(1) of Act, 21 U.S.C ?? 360bbb-3(b) (1), unless the authorization is terminated or revoked sooner. Negative results do not preclude 2019-nC oV infection and should not be used as the sole basis for treatment or other patient management decisions. Negative results must be combined with clinical observa tions, patient history, and epidemiologi horacio information. Testing was performed using the emd SA RS-CoV-2 assay ([employer] on the Med 6800 System Performing Lab Med 6800 [facility] 02/12/2021 14:17 E [facility] Lab LABORATORY SERVICES Specimen Anatomical Collection Method Collection Time Receive d Time (Source) Location / / Volume Laterality Swab 02/11/2021 8:00 02/11/2021 EST 22:22 EST Provider Outr Resulting Lab MICROBIOLOGY - GENERAL ORD ERABLES Performing Organization Address City/State/ZIP Code Phon e Number [facility] [address] [place] [address] SERVICES documented in this encounter Visit Diagnoses Not on filedocumented in this encounter Care Teams Side Door Worker Relationship Specialty Start Date End Date Lolly Oliveira MD PCP - General 11/13/08 [address] [place], [place] [address] documented as of this encounter
--- OUTSIDE RECORDS SUMMARY | 2022-01-16 13:14 | XMS_ITS | Encounter Summary ---
:1950 Author Organization [facility] Address [address] [place] [address] Care Team Providers Name Role Phone Lolly Oliveira MD Primary Care Provider Encounter Details Date Type Department Care Team Description 04/25/[address] [facility] Janice Oliveira MD Laboratory Services - [address] [place] [address] [address] [facility] [address] [phone] Social History Tobacco Use Types Packs/Day Years Used Date Smoking Tobacco: Never Assessed Sex Assigned at Date Recorded Not on file documented as of this encounter Plan of Treatment Not on filedocumented as of this encounter Procedures Procedure Name Priority Date/Time Associated Diagnosis Comme [facility] CYTOPATHOLOGY Routine 04/25/2009 0:00 EST Results for this procedure are i n the results section . documented in this encounter Results CYTOPATHOLOGY (04/25/2009 0:00 EST) Component Value Ref Test Analysis Performed At [facility] Pathology CYTOPATHOLOGY REPORT ? TOVA Report: ? [facility] Reports generated via electr onic interface contain original data; ? however they are lacking the format of the original report. ? Caution should be taken when reading/interpreting unformatted reports. ? Name: ? JING MOTT ? Accession #: ? [id number] ? : ? 1950 (Age: 58) ??F ?Collect Date: ? 04/25/2009 ? Location: ? [facility] ? Receive Date: ? 04/26/2009 ? Provider: ?LOLLY BERR MAGDALENA MD ? Copy to: ? Specimen/Source: ? Pap Test, Cervix/Endocervix, ThinPrep Imaging System ? with manual evaluation ? Last Menstrual Period: ? years ago ? Treatment History: ? Cone biopsy: years ago ? Endometrial biopsy: // -,Dx superficial strips of inactive endometrial ? lining.2,scant stroma, insuf f for eval. ? SPECIMEN ADEQUACY ? Satisfactory for Eval uation ? - assessment of transformati on zone component not applicable ( e.g. atrophy, ? vaginal sample, hysterectomy ) ? GENERAL CATEGORIZATION ? Negative for Intraepi thelial Lesion or Malignancy ? Document reviewed and electr onically signed by: ? Helena Gurmeet, CT( CP) ? Report Date: ??02/22/ 2010 10:38 ? End of Report ? Specimen (Source) Anatomical Location Collection Method / Collectio n Time Received Time / Laterality Volume 04/25/2009 04/26/2009 Lolly Oliveira MD PATHOLOGY ORDERABLES Performing Organization Address City/State/ZIP Code Phon e Number [facility] [address] [place] [address] SERVICES [facility] [address] [place] [address] documented in this encounter Visit Diagnoses Not on filedocumented in this encounter Care Teams Geological Science Teacher Relationship Specialty Start Date End Date Lolly Oliveira MD PCP - General 11/13/[address] [place] [address] documented as of this encounter
--- OUTSIDE RECORDS SUMMARY | 2022-01-16 13:14 | XMS_ITS | Encounter Summary ---
:1950 Author Organization [facility] Address [address] [place] [address] Care Team Providers Name Role Phone Lolly Oliveira MD Primary Care Provider Encounter Details Date Type Department Care Team Description 03/21/2019 Lab Requisition [facility] Unknown, Provider, Pathology & Laboratory [facility] [address] [place] [address] [place] [address] Social History Tobacco Use Types Packs/Day Years Used Date Smoking Tobacco: Never Assessed Sex Assigned at Date Recorded Not on file documented as of this encounter Plan of Treatment Not on filedocumented as of this encounter Procedures Procedure Name Priority Date/Time Associated Diagnosis Comme nts VITAMIN B12 Routine 03/16/2019 9:25 EST Results for this procedure are i n the results section . documented in this encounter Results VITAMIN B12 (03/16/2019 9:25 EST) P athologist Signature Vitamin B12 [phone] 03/22/2019 [facility] pg/mL 11:52 EST CENTER LABORATORY SERVICES Specimen Anatomical Collection Method Collection Time Receive d Time (Source) Location / / Volume Laterality Blood VENOUS BLOOD / 03/16/2019 9:25 03/21/2019 Unknown EST 21:35 EST Provider Unknown CHEMISTRY & BLOOD GAS ORDERA BLES Performing Organization Address City/State/ZIP Code Phon e Number [facility] [address] [place] [address] SERVICES documented in this encounter Visit Diagnoses Not on filedocumented in this encounter Care Teams Manager Generation Relationship Specialty Start Date End Date Lolly Oliveira MD PCP - General 11/13/08 [address] [place] [address] documented as of this encounter
--- OUTSIDE RECORDS SUMMARY | 2022-01-16 13:14 | XMS_ITS | Clinical Summary ---
:1950 Author Organization [facility] Address [address] [place] [address] Care Team Providers Name Role Phone Lolyl Oliveira MD Primary Care Provider Social History Tobacco Use Types Packs/Day Years Used Date Smoking Tobacco: Never Assessed Sex Assigned at Date Recorded Not on file Plan of Treatment Health Maintenance Due Date Last Done Comments Hepatitis C Screen 1950 COVID-19 Vaccine (1) 1953 Fall Risk Screening 2013 Insurance Payer Benefit Plan Subscriber ID Effective Phone Address Typ e / Group Dates BC[place]BS [place] BLUE [id number] 2021-Pres [phone] Medicare MEDICARE ADVANTAGE ent [id number] [place] [address] Care Teams Senior Games Technician Relationship Specialty Start Date End Date Lolly Oliveira MD PCP - General 11/13/08 [address] [place] [address]
--- OUTSIDE RECORDS SUMMARY | 2022-01-16 13:14 | XMS_ITS | Encounter Summary ---
:1950 Author Organization [facility] Address [address] [place] [address] Care Team Providers Name Role Phone Lolly Oliveira MD Primary Care Provider Encounter Details Date Type Department Care Team Description 11/13/2020 Lab Requisition [facility] Outr Resulting Lab, Pathology & Laboratory Provider [facility] [address] [place] [address] Social History Tobacco Use Types Packs/Day Years Used Date Smoking Tobacco: Never Assessed Sex Assigned at Date Recorded Not on file documented as of this encounter Plan of Treatment Not on filedocumented as of this encounter Procedures Procedure Name Priority Date/Time Associated Diagnosis Comme nts [facility] Today 11/13/2020 7:30 EDT LAB PCR COVID-19 TESTING Routine 11/13/2020 7:30 EDT Resu lts for this procedure are i n the results section. documented in this encounter Results COVID-19 TEST [facility] LAB PCR (11/13/2020 7:30 EDT) Specimen Anatomical Location Collection Method Collection Time Received Time (Source) / Laterality / Volume Swab ENTIRE NASOPHARYNX 11/13/2020 7:30 2020 / Unknown EDT 20:57 EDT Provider Outr Resulting Lab MICROBIOLOGY - GENERAL ORD ERABLES Performing Organization Address City/State/ZIP Code Phon e Number [facility] [address] [place] [address] SERVICES COVID-19 TESTING (11/13/2020 7:30 EDT) Analysis Performed At Patho logist Time Signature COVID-19 Negative Negative 11/14/2020 [facility] rt-PCR Result 11:46 EDT CENTER LABORATORY SERVICES Comment: This test has [...] horacio information. Testing was performed using the med SA RS-CoV-2 assay ([employer] on the Med 6800 System Performing Lab Med 6800 [facility] 11/14/2020 11:46 E DT [facility] Lab LABORATORY SERVICES Specimen Anatomical Collection Method Collection Time Receive d Time (Source) Location / / Volume Laterality Swab 11/13/2020 7:30 11/13/2020 EDT 20:57 EDT Provider Outr Resulting Lab MICROBIOLOGY - GENERAL ORD ERABLES Performing Organization Address City/State/ZIP Code Phon e Number [facility] [address] [place] [address] SERVICES documented in this encounter Visit Diagnoses Not on filedocumented in this encounter Care Teams Oracle Drm Consultant Relationship Specialty Start Date End Date Lolly Oliveira MD PCP - General 11/13/08 [address] [place], [place] [address] documented as of this encounter
--- OUTSIDE RECORDS SUMMARY | 2022-01-16 13:14 | XMS_ITS | Encounter Summary ---
:1950 Author Organization [facility] Address [address] [place] [address] Care Team Providers Name Role Phone Lolly Oliveira MD Primary Care Provider Encounter Details Date Type Department Care Team Description 05/02/2004 Results Only [facility] - Lolly Mendoza MD conversion [address] [facility] [address] [place], [place] [id number] [place] [address] [id number] [phone] Social History Tobacco Use Types Packs/Day Years Used Date Smoking Tobacco: Never Assessed Sex Assigned at Date Recorded Not on file documented as of this encounter Plan of Treatment Not on filedocumented as of this encounter Procedures Procedure Name Priority Date/Time Associated Comments Diagnosis HPV DETECTION, HIGH Routine 05/02/2004 9:32 Resul ts for this RISK TYPES EST procedure are i n the results section. CYTOPATHOLOGY Routine 05/02/2004 0:00 Results for this EST procedure are i n the results section. documented in this encounter Results HUMAN PAPILLOMA VIRUS DNA TEST (05/02/2004 9:32 EST) [facility] Method Time Signature Specimen Cervix, BERNARDO Description ThinPrep [facility] vial Result Negative for TOVA HPV types [facility] 16, 18, 31, 33, 35, 39, 45, 51, 52, 56, 58, 59, and 68. Report Status Final T[facility] [id number] [facility] Specimen Anatomical Collection Method Collection Time Receive d Time (Source) Location / / Volume Laterality 05/02/2004 9:32 05/10/2004 9 :32 EST EST Lolly Oliveira MD MICROBIOLOGY - GENERAL ORDER LOREN Performing Organization Address City/State/ZIP Code Phon e Number [facility] [address] [place] [address] SERVICES [facility] [address] [place] [address] CYTOPATHOLOGY (05/02/2004 0:00 EST) Component Value Ref Test Analysis Performed At [facility] Range Method Time Signature Pathology CYTOPATHOLOGY REPORT TOVA Report: [facility] Reports generated via electronic interface contain original data; however they are lacking the format of the original report. Caution should be taken when reading/interpreting unformatte d reports. Name: ? JING ALVARENGA ? Accession #: ? [id number] : ? 1950 (Age: 53) ??F ?Collect Date: ? 05/02/2004 Location: ? [facility] ? Receive Date: ? 05/06/2004 Provider: ?LOLLY OLIVEIRA MD Copy to: ? Specimen/Source: ?ThinPrep Pap Test, Cervix/Endoce rvix Last Menstrual Period: ? Years ago Previous Gynecologic Pathology: ? Yes: 15 +/- Treatment History: ? Cone biopsy Other: ? HPVDX - HPV testing requested regardless of diag nosis on current ThinPrep Pap test. ? SPECIMEN ADEQUACY ? Satisfactory for Evaluation - transformation zone component present GENERAL CATEGORIZATION ? Negative for Intraepithelial Lesion or Malignancy ? Document reviewed and electronically signed by: ? BERHANE Berrios(ASCP) ? Report Date: ??05/09/2004 13:30 End of Report Specimen (Source) Anatomical Location Collection Method / Collectio n Time Received Time / Laterality Volume 05/02/2004 05/06/2004 Lolly Oliveira MD PATHOLOGY ORDERABLES Performing Organization Address City/State/ZIP Code Phon e Number [facility] [address] [place] [address] SERVICES [facility] [address] [place] [address] documented in this encounter Visit Diagnoses Not on filedocumented in this encounter Care Teams Clinical Haematologist Relationship Specialty Start Date End Date Lolly Oliveira MD PCP - General 11/13/08 [address] [place] [address] documented as of this encounter
--- OUTSIDE RECORDS SUMMARY | 2022-01-16 13:14 | XMS_ITS | Encounter Summary ---
:1950 Author Organization [facility] [place] [address] Care Team Providers Name Role Phone Lolly Oliveira MD Primary Care Provider Encounter Details Date Type Department Care Team Description 01/14/2022 Telephone Dermatology at [facility] Nora Meredith LPN [address] [place] [address] Social History Tobacco Use Types Packs/Day Years Used Date Never Smoker Sex Assigned at Date Recorded Not on file documented as of this encounter Miscellaneous Notes Telephone Encounter - Nora Meredith LPN - 01/14/2022 2:31 PM EST Patient requesting refill TAC for her psoriasis. Stopped phototherapy in July. 10/09/21 spots on her arms, chest and left leg began to return. Started applying TAC 1-2 times daily. More spots and the TAC doesn't cure only temporally takes the flare away then returns. Continues to have more flares. Dr. Ramírez recommends return to phototherapy. New order sent to [facility]. Reviewed with patient Dr. Mar recommendation. She agrees with plan of care. Advised patient order will be sent to [facility]. She voiced understanding. documented in this encounter Plan of Treatment Not on filedocumented as of this encounter Visit Diagnoses Not on filedocumented in this encounter Care Teams Director Of Food And Beverage Services Relationship Specialty Start Date End Date Lolly Oliveira MD PCP - General 07/17/13 [address] [place] [address] documented as of this encounter
--- OUTSIDE RECORDS SUMMARY | 2022-01-16 13:14 | XMS_ITS | Encounter Summary ---
:1950 Author Organization [facility] Address [address] [place] [address] Care Team Providers Name Role Phone Unavailable Primary Care Provider Unavailable Encounter Details Date Type Department Care Team Description 11/07/[address] [facility] Kenneth Krishnan MD Laboratory Services - [address] [place] [address] [place] [address] [phone] Social History Tobacco Use Types Packs/Day Years Used Date Smoking Tobacco: Never Assessed Sex Assigned at Date Recorded Not on file documented as of this encounter Plan of Treatment Not on filedocumented as of this encounter Procedures Procedure Name Priority Date/Time Associated Diagnosis Comme [facility] SURGICAL PATHOLOGY Routine 11/07/2008 0:00 EDT Re sults for this procedure are i n the results section. documented in this encounter Results SURGICAL PATHOLOGY (11/07/2008 0:00 EDT) Component Value Ref Test Analysis Performed At [facility] Method Time Signature Pathology SURGICAL PATHOLOGY REPORT ? J LUIS HER Report: Reports generated via electr Enigmatec interface contain original data; ? [facility] however they are lacking the format of the original report. ? Caution should be taken when reading/interpreting unformatted reports. ? Name: ? LYLE, JING ? Accession #: ? [id number] ? : ? 1950 (Age: 58) ??F ? Collec t Date: ? 11/07/2008 ? Location: ? [facility] ? Re ceive Date: ? 11/08/2008 ? Provider: KENNETH Beckett SAUTER MD ? Copy to: JU CORTEZ MD ? Final Pathologic Diagnosis: ? Endometrium, biopsy: ? 1. ??Superficial strips of i nactive endometrial lining. ? 2. ??Scant stroma; insuffici ent for evaluation. ? Document reviewed and electr onically signed by: ? Soco Jordan MD ? Report ??Date: 11/13/2008 16 :18 ? By the signature above, the attending physician certifies that he/she has ? personally conducted a gross and/or microscopic examination of the described ? specimens and rendered or co nfirmed the above diagnosis. ? Specimen(s) Received: ? Endometrial biopsy ? Clinical History: ? Clinical diagnosis co de: ??endometrial hyperplasia, 621.30 ? Gross Description: ? Received in formalin labelled Jing Mott and EMB is a 0.4 x 0.4 x 0.2 cm aggregate of pineda-brow n mucinous material. ??The specimen is submitted ? entirely in one cassette fol lowing filtration. (Aaron Gray)/lgk ? End of Report ? Specimen (Source) Anatomical Collection Method Collection Time Re ceived Time Location / / Volume Laterality 11/07/2008 11/08/2008 16:5 1 EDT Kenneth Krishnan MD PATHOLOGY ORDERABLES Performing Organization Address City/State/ZIP Code Phon e Number [facility] [address] [place] [address] SERVICES [facility] [address] [place] [address] documented in this encounter Visit Diagnoses Not on filedocumented in this encounter
--- OUTSIDE RECORDS SUMMARY | 2022-01-16 13:14 | XMS_ITS | Encounter Summary ---
:1950 Author Organization [facility] Address [address] [place] [address] Care Team Providers Name Role Phone Lolly Oliveira MD Primary Care Provider Encounter Details Date Type Department Care Team Description 04/01/2005 Results Only [facility] - Blair Comer MD conversion [address] [place] [id number] [place] [address] [phone] Social History Tobacco Use Types Packs/Day Years Used Date Smoking Tobacco: Never Assessed Sex Assigned at Date Recorded Not on file documented as of this encounter Plan of Treatment Not on filedocumented as of this encounter Procedures Procedure Name Priority Date/Time Associated Diagnosis Comme [facility] SURGICAL PATHOLOGY Routine 04/01/2005 0:00 EST Re sults for this procedure are i n the results section. documented in this encounter Results SURGICAL PATHOLOGY (04/01/2005 0:00 EST) Component Value Ref Test Analysis Performed At [facility] Method Time Signature Pathology SURGICAL PATHOLOGY REPORT FRANSISCO BORGES Report: Reports generated via electronic interface contain origina l data; [facility] however they are lacking the format of the original report. Caution should be taken when reading/interpreting unformatte d reports. Name: ? JING MOTT ? Accession #: ? [id number] ? : ? 1950 (Age: 54) ??F ? Collect Date: ? 04/01/2005 ? Location: ? [facility] ? Receive Date: ? 04/02/2005 ? Provider: BLAIR DUKES MD Copy to: LOLLY OLIVEIRA MD ? Final Pathologic Diagnosis: A. ?Terminal ileum, biopsy: 1. ?Prominent l ymphoid follicle; otherwise no pathologic features. B. ?Colon, transverse, biopsy: 1. ?Hyperplastic polyp. Document reviewed and electronically signed by: MELISSA MARTINEZ MD Report ??Date: 04/03/2005 15:50 By the signature above, the attending physician certifies th at he/she has personally conducted a gross and/or microscopic examin ation of the described specimens and rendered or confirmed the above diagnosis. Specimen(s) Received: A. ?Terminal ileum bx (#1) B. ?Transverse colon polypectomy (#2) Clinical History: ? Screening Gross Description: ? Received in Hollande' s fixative labelled Lyle and #1 ??terminal ileum bx is a single 0.3 x 0.2 x 0.2 cm tissue, submitted intact as (A). Received in Hollande' s fixa tive labelled Lyle and #2 ??transverse colon bx is a single 0.2 x 0.2 x 0.2 cm tissue, submitted intact as ( B). ??(Dr. Lechuga)/[facility] End of Report Specimen (Source) Anatomical Collection Method Collection Time Re ceived Time Location / / Volume Laterality 04/01/2005 04/02/2005 15:2 4 EST Blair Dukes MD PATHOLOGY ORDERABLES Performing Organization Address City/State/ZIP Code Phon e Number [facility] [address] [place] [address] SERVICES [facility] [address] [place] [address] documented in this encounter Visit Diagnoses Not on filedocumented in this encounter Care Teams Resident In Diagnostic Radiology Relationship Specialty Start Date End Date Lolly Oliveira MD PCP - General 11/13/08 [address] [place] [address] documented as of this encounter
--- OUTSIDE RECORDS SUMMARY | 2022-01-16 13:15 | XMS_ITS | Encounter Summary ---
:1950 Author Organization [place] [address] Care Team Providers Name Role Phone Lolly Oliveira MD Primary Care Provider Reason for Visit Reason Comments Skin Check Encounter Details Date Type Department Care Team Description 11/23/2014 Office Visit Dermatology at Clay Ramírez MD Dermatofibroma; [place] [address] [place]; [address] Malcolm DERMATOL [place] [address] [place], [place] [phone] (Wo rk) [phone] Social History Tobacco Use Types Packs/Day Years Used Date Never Smoker Sex Assigned at Date Recorded Not on file documented as of this encounter Progress Notes Clay Ramírez MD - 11/23/2014 10:38 AM EDT Problem: Skin check. Luna is a 64-year-old woman who is referred today by Lolly Oliveira for a general skin checkup. Luna mentioned at a recent physical examination that she has had some changing pigmented lesions on her skin and wants to have these checked. The patient has no personal history of skin cancer or melanoma, but friends of hers have had skin cancer, and she would like to avoid this. The patient does follow sun avoidance precautions, uses sunscreen, and wears a hat when she is out of doors. Physical examination reveals a pleasant, 64-year-old woman who has a solar lentigo over the left distal nasal sidewall, ovoid, light pineda, well demarcated, and evenly pigmented. It appears entirely unremarkable. She has an ovoid, 1-cm solar lentigo on the left lateral cheek area. She has smaller lentigos on the right cheek. She has a number of webb red hemangiomas on the abdomen. She has an atrophic dermatofibroma on the left lateral thigh, which is pineda and pigmented. She has another dermatofibroma, erythematous and papular, 3 to 4 mm in diameter, on her right lateral arm. Careful examination of the head and neck, chest, back, hands, arms, forearms, thighs, and calves is benign. Assessment and Plan: Benign skin examination. a. Patient reassured about benign skin examination. b. Reinforced sun avoidance precautions. c. I recommended return to clinic on just a p.r.n. basis for new lesions/concerns, at either the request of the patient or Dr. Oliveira. COPY: Lolly Oliveira M.D. documented in this encounter Plan of Treatment Not on filedocumented as of this encounter Visit Diagnoses Diagnosis Dermatofibroma Benign neoplasm of skin, site unspecifie d Nevus Benign neoplasm of skin, site unspecifie d Solar lentigo Other dyschromia documented in this encounter Care Teams Data Manager Relationship Specialty Start Date End Date Lolly Oliveira MD PCP - General 07/17/13 [address] [place] [address] documented as of this encounter
--- OUTSIDE RECORDS SUMMARY | 2022-01-16 13:15 | XMS_ITS | Encounter Summary ---
:1950 [place] [address] Care Team Providers Name Role Phone Unavailable Primary Care Provider Unavailable Encounter Details Date Type Department Care Team Description 07/14/2013 Orders Only Radiology Eleno Christian MD [facility] [place] [address] DIAGNOSTIC RADIOLOGY [phone] [place] [id number] (Wo rk) Social History Tobacco Use Types Packs/Day Years Used Date Never Assessed Sex Assigned at Date Recorded Not on file documented as of this encounter Plan of Treatment Not on filedocumented as of this encounter Visit Diagnoses Not on filedocumented in this encounter
--- OUTSIDE RECORDS SUMMARY | 2022-01-16 13:15 | XMS_ITS | Encounter Summary ---
:1950 Author Organization [facility] [place] [address] Care Team Providers Name Role Phone Lolly Oliveira MD Primary Care Provider Encounter Details Date Type Department Care Team Description 07/17/2013 Hospital Encounter XRay at [facility] [address] [place] [address] [place] [address] Social History Tobacco Use Types Packs/Day Years Used Date Never Assessed Sex Assigned at Date Recorded Not on file documented as of this encounter Consult Notes Provider, Hollie - 07/17/2013 7:56 AM EDT documented in this encounter Plan of Treatment Not on filedocumented as of this encounter Visit Diagnoses Not on filedocumented in this encounter Care Teams Plan Coordinator Relationship Specialty Start Date End Date Lolly Oliveira MD PCP - General 07/17/13 [address] [place], [place] [address] documented as of this encounter
--- OUTSIDE RECORDS SUMMARY | 2022-01-16 13:15 | XMS_ITS | Encounter Summary ---
:1950 Author Organization [facility] [place] [address] Care Team Providers Name Role Phone Lolly Oliveira MD Primary Care Provider Encounter Details Date Type Department Care Team Description 07/26/2013 Hospital Mammography at [facility] [address] [facility] Mammographic Encounter [facility] Lolly Oliveira MD [address] [place] [address] [place] [id number] Social History Tobacco Use Types Packs/Day Years Used Date Never Assessed Sex Assigned at Date Recorded Not on file documented as of this encounter Plan of Treatment Not on filedocumented as of this encounter Procedures Procedure Name Priority Date/Time Associated Diagnosis Comme nts MAMMO STEREOTACTIC Routine 07/26/2013 11:57 Mammographic Resul ts for this BIOPSY AM EDT microcalcification procedure are in the results section. SPECIMEN TO Routine 07/26/2013 11:28 Results for this PATHOLOGY AM EDT procedure are i n the results section. documented in this encounter Results Mammo stereotactic (07/26/2013 11:57 AM EDT) Anatomical Region Laterality Modality Breast N/A Mammography Specimen (Source) Anatomical Collection Method Collection Time Re ceived Time Location / / Volume Laterality 07/26/2013 11:57 AM EDT Impressions 07/28/2013 5:26 PM EDT Impression: concordant Recommendation: f/u mammography in one y ear. ??As discussed with Ms. Mott by Dr. Christian on 07/28/13. ?? I performed the procedure without a resi dent. Narrative 07/28/2013 5:26 PM EDT VACUUM ASSISTED STEREOTACTIC GUIDED BIOPSY OF THE RIGHT BREAST ON 07/26/13: Informed consent was obtained. Using minerva rile technique and 1% lidocaine used for local anesthesia, a skin incision wa s made and a biopsy was performed from a lateral approach in the Prone Unit usi ng 2D stereotactic guidance for image guidance. Clinical indication: Right breast 10mm c luster of calcifications in the upper, outer quadrant at 1000, 8cm from the nip ple. An AccutFit Lorad Stage drape was used t o cover the track of the biopsy device. ?? 9-gauge Eviva Regular device 8 core biopsy specimens obtained. The specimen was X-rayed; the calcificat ions are present on specimen digital X-ray. A SMark Eviva-Stereo 13 Cylinder marker clip was placed. Cranio-caudal and lateral digital mammography performed to determine biopsy marker placement, which was shown to be 1 cm from the biop sy site in lateral direction. Satisfactory sampling was obtained. There were no procedural complications. Imaging diagnosis: FCD versus adenosis v ersus DCIS. Pathologic diagnosis: adenosis, small ra dial sclerosing lesion completely excised Procedure Note Eleno Christian MD - 07/28/2013Format ting of this note might be different from the original. VACUUM ASSISTED STEREOTACTIC GUIDED BIOP SY OF THE RIGHT BREAST ON 07/26/13: Informed consent was obtained. Using minerva rile technique and 1% lidocaine used for local anesthesia, a skin incision wa s made and a biopsy was performed from a lateral approach in the Prone Unit usi ng 2D stereotactic guidance for image guidance. Clinical indication: Right breast 10mm c luster of calcifications in the upper, outer quadrant at 1000, 8cm from the nip ple. An AccutFit Lorad Stage drape was used t o cover the track of the biopsy device. 9-gauge Eviva Regular device 8 core biopsy specimens obtained. The specimen was X-rayed; the calcificat ions are present on specimen digital X-ray. A SMark Eviva-Stereo 13 Cylinder marker clip was placed. Cranio-caudal and lateral digital mammography performed to determine biopsy marker placement, which was shown to be 1 cm from the biop sy site in lateral direction. Satisfactory sampling was obtained. There were no procedural complications. Imaging diagnosis: FCD versus adenosis v ersus DCIS. Pathologic diagnosis: adenosis, small ra dial sclerosing lesion completely excised IMPRESSION Impression: concordant Recommendation: f/u mammography in one y ear. As discussed with Ms. Mott by Dr. Christian on 07/28/13. I performed the procedure without a resi dent. Alia Fraire MD IMG MAMMO ORDERABLES Specimen to Pathology (surgical or derm) (07/26/2013 11:28 AM EDT) Specimen Anatomical Collection Method Collection Time Receive d Time (Source) Location / / Volume Laterality AP Specimen 07/26/2013 11:28 07/26/2013 AM EDT 11:28 AM EDT Narrative CERNER MILLENNIUM - 07/26/2013 11:28 AM EDT Specimen requisition ordered. ??Separate Pathology report to follow Eleno Christian MD PATHOLOGY/CYTOLOGY ORDERABLE S Performing Organization Address City/State/[place] [address] [facility] documented in this encounter Visit Diagnoses Diagnosis Mammographic microcalcification documented in this encounter Administered Medications Inactive Administered Medications - up to 3 most recent administrations Medication Order MAR Action Action Date Dose Rate Site lidocaine (XYLOCAINE) 10 mg/mL (1 Given 07/26/2013 11:45 AM EDT 10 mg %) injection 10 mg 10 mg, Intradermal, ONCE, 1 dose, On Wed07/26/13 at 1145, Routine lidocaine-EPINEPHrine 1 %-1:100,000 Given 07/26/2013 11:45 AM ED T 20 mLs injection 20 mL 20 mL, Intradermal, ONCE, 1 dose, On Wed07/26/13 at 1145, Routine documented in this encounter Care Teams Paediatrician Relationship Specialty Start Date End Date Lolly Oliveira MD PCP - General 07/17/13 [address] [place] [address] documented as of this encounter
--- OUTSIDE RECORDS SUMMARY | 2022-01-16 13:15 | XMS_ITS | Encounter Summary ---
:1950 Author Organization [facility] [place] [address] Care Team Providers Name Role Phone Lolly Oliveira MD Primary Care Provider Encounter Details Date Type Department Care Team Description 07/17/2013 Orders Only Radiology Lolly Ocampo MD [facility] [address] [facility] [place] [address] [place] [address] [phone] Social History Tobacco Use Types Packs/Day Years Used Date Never Assessed Sex Assigned at Date Recorded Not on file documented as of this encounter Plan of Treatment Not on filedocumented as of this encounter Procedures Procedure Name Priority Date/Time Associated Diagnosis Comme nts REQUEST FOR 2ND Routine 07/17/2013 8:45 AM Result s for this READ MAMMO EDT procedure are i n the results section. documented in this encounter Results Request for 2nd read Mammo (07/17/2013 8:45 AM EDT) Anatomical Region Laterality Modality Other Specimen (Source) Anatomical Collection Method Collection Time Re ceived Time Location / / Volume Laterality 07/17/2013 8:45 AM EDT Narrative 07/17/2013 3:57 PM EDT INTERPRETATION OF OUTSIDE MAMMOGRAMS (PERFORMED ON 07/06/13 AND 07/14/13) FROM [facility] DATED 07/17/13: ?? DIAGNOSTIC IMAGING SUMMARY: ?? RIGHT BREAST LESION 1: SUSPICIOUS (BIRAD S Category 4). ?? Finding: Amorphous, mildly pleomorphic m icrocalcifications. ?? Size: 10mm. ?? Location: 1000, 8cm from the nipple. ?? Recommendation: Stereotactic guided biop sy preceded by true lateral + / - true lateral magnification view to exclude th e possibility of milk of calcium. ? LEFT BREAST: NEGATIVE (BIRADS Category 1 ). ? NARRATIVE: ?? CLINICAL INDICATION: I have been asked t o consult on this patient by Dr. Lolly Oliveira because she believes a review of this study may change or alter the care of this patient. ?? HISTORY: Outside recommendation for biop sy of calcifications in the Right breast. ?? COMPARISON: Bilateral digital mammogram 07/04/12, 06/29/11, 06/23/10 and 06/21/09. ?? TECHNIQUE: The following views are avail able for interpretation: 07/06/13 bilateral mammogram with bilateral CC an d MLO views, 07/14/13 Right diagnostic mammogram with Right mag CC (x2) and Rig ht mag MLO views. ?? FINDINGS: The breasts are comprised of s cattered densities. ?? The Left breast demonstrates a stable fi broglandular pattern without significant interval change. There are d iffuse punctate calcifications seen throughout the Left breast without a sin gle worrisome cluster. There is no mammographic evidence of malignancy seen within the Left breast. ?? In the Right breast there are punctate a nd amorphous microcalcifications in the upper, outer Right breast. Many of these have been stable on prior mammograms dating back to 2009 and some have the randall ggestion of layering likely representing milk of calcium. However, t here is a 10mm group of microcalcifications in the upper, outer quadrant of the Right breast at approximately the 1000 position, 8cm fro m the nipple which have an amorphous morphology and may have slightly increas ed since the prior years. There are no true lateral or magnification true later al views to exclude milk of calcium, though on the magnification MLO view the se have a somewhat pleomorphic appearance and remain indeterminate. The refore, biopsy is recommended. ? Film and interpretation reviewed by the attending Procedure Note Alia Fraire MD - 07/17/2013 INTERPRETATION OF OUTSIDE MAMMOGRAMS (PE RFORMED ON 07/06/13 AND 07/14/13) FROM [facility] DATED 07/17/13: DIAGNOSTIC IMAGING SUMMARY: RIGHT BREAST LESION 1: SUSPICIOUS (BIRAD S Category 4). Finding: Amorphous, mildly pleomorphic m icrocalcifications. Size: 10mm. Location: 1000, 8cm from the nipple. Recommendation: Stereotactic guided biop sy preceded by true lateral + / - true lateral magnification view to exclude th e possibility of milk of calcium. LEFT BREAST: NEGATIVE (BIRADS Category 1 ). NARRATIVE: CLINICAL INDICATION: I have been asked t o consult on this patient by Dr. Lolly Oliveira because she believes a review of this study may change or alter the care of this patient. HISTORY: Outside recommendation for biop sy of calcifications in the Right breast. COMPARISON: Bilateral digital mammogram 07/04/12, 06/29/11, 06/23/10 and 06/21/09. TECHNIQUE: The following views are avail able for interpretation: 07/06/13 bilateral mammogram with bilateral CC an d MLO views, 07/14/13 Right diagnostic mammogram with Right mag CC (x2) and Rig ht mag MLO views. FINDINGS: The breasts are comprised of s cattered densities. The Left breast demonstrates a stable fi broglandular pattern without significant interval change. There are d iffuse punctate calcifications seen throughout the Left breast without a sin gle worrisome cluster. There is no mammographic evidence of malignancy seen within the Left breast. In the Right breast there are punctate a nd amorphous microcalcifications in the upper, outer Right breast. Many of these have been stable on prior mammograms dating back to 2009 and some have the randall ggestion of layering likely representing milk of calcium. However, t here is a 10mm group of microcalcifications in the upper, outer quadrant of the Right breast at approximately the 1000 position, 8cm fro m the nipple which have an amorphous morphology and may have slightly increas ed since the prior years. There are no true lateral or magnification true later al views to exclude milk of calcium, though on the magnification MLO view the se have a somewhat pleomorphic appearance and remain indeterminate. The refore, biopsy is recommended. Film and interpretation reviewed by the attending Lolly Oliveira MD IMG OUTSIDE INTERPRETATION O RDERABLES documented in this encounter Visit Diagnoses Not on filedocumented in this encounter Care Teams Basin Tender Relationship Specialty Start Date End Date Lolly Oliveira MD PCP - General 07/17/13 [address] [place] [address] documented as of this encounter
--- OUTSIDE RECORDS SUMMARY | 2022-01-16 13:15 | XMS_ITS | Encounter Summary ---
:1950 [place] [address] Care Team Providers Name Role Phone Lolly Oliveira MD Primary Care Provider Encounter Details Date Type Department Care Team Description 07/26/2013 Orders Only Radiology Eleno Christian MD [facility] [place] [address] DIAGNOSTIC RADIOLOGY [phone] [place] [id number] (Wo rk) Social History Tobacco Use Types Packs/Day Years Used Date Never Assessed Sex Assigned at Date Recorded Not on file documented as of this encounter Progress Notes Eleno Christian MD - 07/26/2013 10:02 AM EDT Pre-procedure note for needle breast biopsies performed in radiology. Procedure date: Today Procedure type: right breast stereotactic biopsy Allergies: Review of patient's allergies indicates not on file. Medications: No current outpatient prescriptions on file. Anticoagulation status: none stopped on: N/A Imaging reviewed and procedural plan approved by Dr. ELENO CHRISTIAN MD documented in this encounter Plan of Treatment Not on filedocumented as of this encounter Visit Diagnoses Not on filedocumented in this encounter Care Teams Women'S Studies Lecturer Relationship Specialty Start Date End Date Lolly Oliveira MD PCP - General 07/17/13 [address] [place], [place] [address] documented as of this encounter
--- OUTSIDE RECORDS SUMMARY | 2022-01-16 13:15 | XMS_ITS | Encounter Summary ---
:1950 [place] [address] Care Team Providers Name Role Phone Lolly Oliveira MD Primary Care Provider Encounter Details Date Type Department Care Team Description 06/29/2011 Orders Only Radiology Eleno Christian MD [facility] [place] [address] DIAGNOSTIC RADIOLOGY [phone] [place] [id number] (Wo rk) Social History Tobacco Use Types Packs/Day Years Used Date Never Assessed Sex Assigned at Date Recorded Not on file documented as of this encounter Plan of Treatment Not on filedocumented as of this encounter Procedures Procedure Name Priority Date/Time Associated Diagnosis Comme nts FILM LIBRARY Routine 06/29/2011 8:10 AM Results f or this STORAGE ONLY MAMMO EDT procedure are in the results section. documented in this encounter Results Film Library- Storage only Mammo (06/29/2011 8:10 AM EDT) Anatomical Region Laterality Modality Other Specimen (Source) Anatomical Collection Method Collection Time Re ceived Time Location / / Volume Laterality 06/29/2011 8:10 AM EDT Narrative 07/17/2013 8:57 AM EDT This is a Non-reportable exam Procedure Note 07/17/2013 This is a Non-reportable exam Eleno Christian MD IMG FILM LIBRARY ORDERABLES documented in this encounter Visit Diagnoses Not on filedocumented in this encounter Care Teams Dyeing Machine Tender Relationship Specialty Start Date End Date Lolly Oliveira MD PCP - General 07/17/13 [address] [place] [address] documented as of this encounter
--- OUTSIDE RECORDS SUMMARY | 2022-01-16 13:15 | XMS_ITS | Encounter Summary ---
:1950 Author Organization [facility] [address] Care Team Providers Name Role Phone Lolly Oliveira MD Primary Care Provider Encounter Details Date Type Department Care Team Description 07/20/2013 Hospital Mammography at [facility], [address] [facility] Mammographic Encounter [facility] Lolly Oliveira MD [address] [place] [address] [place] [id number] Social History Tobacco Use Types Packs/Day Years Used Date Never Assessed Sex Assigned at Date Recorded Not on file documented as of this encounter Plan of Treatment Not on filedocumented as of this encounter Procedures Procedure Name Priority Date/Time Associated Diagnosis Comme nts MAMMO DIRECT Routine 07/20/2013 10:23 Mammographic Results for this DIGITAL UNILATERAL AM EDT microcalcification pro cedure are in the results section. documented in this encounter Results Mammo direct digital unilateral (07/20/2013 10:23 AM EDT) Anatomical Region Laterality Modality Breast N/A Mammography Specimen (Source) Anatomical Collection Method Collection Time Re ceived Time Location / / Volume Laterality 07/20/2013 10:23 AM EDT Narrative 07/20/2013 4:51 PM EDT RIGHT DIAGNOSTIC MAMMOGRAM ON 07/20/13: DIAGNOSTIC IMAGING SUMMARY: RIGHT BREAST LESION 1: SUSPICIOUS (BIRAD S Category 4). Finding: Amorphous, mildly pleomorphic m icrocalcifications. Size: 10mm. Location: 1000, 7cm from the nipple. Recommendation: Stereotactic guided biop sy which has been scheduled for 07/26/13 at 10:00am. Preliminary report E-mailed to Dr. Lolly Oliveira on 07/20/13. NARRATIVE: CLINICAL INDICATION: Callback from outsi de interpretation performed on 07/17/13 for calcifications in the Right breast. TECHNIQUE: Additional views of the Right breast obtained in the mag ML and full field ML projections with direct digital capture. COMPARISON: Outside Right diagnostic martina mogram 07/14/13, bilateral mammogram 07/06/13, 07/04/12 and 06/29/11. FINDINGS: Additional magnification ML vi ew re-demonstrates a 10mm group of microcalcifications in the upper, outer Right breast at the 1000 position, 7cm from the nipple. While there are scatter ed, layering milk of calcium seen on the magnification view, this group does not layer and, therefore, are not customer support representative of milk of calcium. Again , these have an amorphous and punctate appearance and remain indeterminate. Malcolm reotactic guided biopsy is recommended. Procedure Note Alia Fraire MD - 07/20/2013 RIGHT DIAGNOSTIC MAMMOGRAM ON 07/20/13: DIAGNOSTIC IMAGING SUMMARY: RIGHT BREAST LESION 1: SUSPICIOUS (BIRAD S Category 4). Finding: Amorphous, mildly pleomorphic m icrocalcifications. Size: 10mm. Location: 1000, 7cm from the nipple. Recommendation: Stereotactic guided biop sy which has been scheduled for 07/26/13 at 10:00am. Preliminary report E-mailed to Dr. Lolly Oliveira on 07/20/13. NARRATIVE: CLINICAL INDICATION: Callback from outsi de interpretation performed on 07/17/13 for calcifications in the Right breast. TECHNIQUE: Additional views of the Right breast obtained in the mag ML and full field ML projections with direct digital capture. COMPARISON: Outside Right diagnostic martina mogram 07/14/13, bilateral mammogram 07/06/13, 07/04/12 and 06/29/11. FINDINGS: Additional magnification ML vi ew re-demonstrates a 10mm group of microcalcifications in the upper, outer Right breast at the 1000 position, 7cm from the nipple. While there are scatter ed, layering milk of calcium seen on the magnification view, this group does not layer and, therefore, are not customer support representative of milk of calcium. Again , these have an amorphous and punctate appearance and remain indeterminate. Malcolm reotactic guided biopsy is recommended. Alia Fraire MD IMG MAMMO ORDERABLES documented in this encounter Visit Diagnoses Diagnosis Mammographic microcalcification documented in this encounter Care Teams Archivist Military History Relationship Specialty Start Date End Date Lloly Oliveira MD PCP - General 07/17/13 [address] [place] [address] documented as of this encounter
--- OUTSIDE RECORDS SUMMARY | 2022-01-16 13:15 | XMS_ITS | Encounter Summary ---
:1950 Author Organization [facility] [address] Care Team Providers Name Role Phone Lolly Oliveira MD Primary Care Provider Encounter Details Date Type Department Care Team Description 10/09/2021 Telephone Dermatology at [facility] Nora Meredith LPN [address] [place] [address] Social History Tobacco Use Types Packs/Day Years Used Date Never Smoker Sex Assigned at Date Recorded Not on file documented as of this encounter Miscellaneous Notes Telephone Encounter - Nora Meredith LPN - 10/09/2021 2:58 PM EDT Patient reports spots on her arm, chest and left leg. Her last treatment for UVB phototherapy was inMay. Reviewed with Dr. Ramírez. Apply TAC twice daily at affected areas. If it gets worse call the office.At that time will begin UVB phototherapy again. Reviewed Dr. Mar recommendation with Reg. He voiced understanding and will discuss with Luna. documented in this encounter Plan of Treatment Not on filedocumented as of this encounter Visit Diagnoses Not on filedocumented in this encounter Care Teams Microeconomics Professor Relationship Specialty Start Date End Date Lolly Oliveira MD PCP - General 07/17/13 [address] [place], [place] [address] documented as of this encounter
--- OUTSIDE RECORDS SUMMARY | 2022-01-16 13:15 | XMS_ITS | Encounter Summary ---
:1950 [place] [address] Care Team Providers Name Role Phone Lolly Oliveira MD Primary Care Provider Encounter Details Date Type Department Care Team Description 07/26/2013 Hospital Encounter Mammography at [facility] Mammographic [facility] [place] [phone] Social History Tobacco Use Types Packs/Day Years Used Date Never Assessed Sex Assigned at Date Recorded Not on file documented as of this encounter Plan of Treatment Not on filedocumented as of this encounter Procedures Procedure Name Priority Date/Time Associated Diagnosis Comme nts MAMMO S/P Routine 07/26/2013 11:58 Mammographic Results for this LOCALIZATION DEVICE AM EDT microcalcification pr ocedure are in IMAGES (BX, NEEDLE the resul ts LOC) section. documented in this encounter Results MAMMO S/P Localization device images (BX, Needle Loc) (07/26/2013 11:58 AM EDT) Anatomical Region Laterality Modality Breast N/A Mammography Specimen (Source) Anatomical Collection Method Collection Time Re ceived Time Location / / Volume Laterality 07/26/2013 11:58 AM EDT Impressions 07/28/2013 5:26 PM EDT [...] dent. Alia Fraire MD IMG MAMMO ORDERABLES documented in this encounter Visit Diagnoses Diagnosis Mammographic microcalcification documented in this encounter Care Teams Wet Pour Mixer Relationship Specialty Start Date End Date Lolly Oliveira MD PCP - General 07/17/13 [address] [place] [address] documented as of this encounter
--- OUTSIDE RECORDS SUMMARY | 2022-01-16 13:15 | XMS_ITS | Encounter Summary ---
:1950 Author Organization [facility] [place] [address] Care Team Providers Name Role Phone Lolly Oliveira MD Primary Care Provider Reason for Visit Reason Comments Follow-up Encounter Details Date Type Department Care Team Description 06/06/2021 Office Visit Dermatology at [facility] P[place]ias is, h[place] MD [address] [facility] DERMATOLOGY [place], [place] [id number] [phone] Social History Tobacco Use Types Packs/Day Years Used Date Never Smoker Sex Assigned at Date Recorded Not on file documented as of this encounter Progress Notes Clay Ramírez MD - 06/06/2021 8:45 AM EDT 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 Physical examination reveals a few minimal macules still present on the anterior shins but the torsothe arms forearms upper legs have cleared. She has a moderate pineda. 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 Patient status post 23 treatment sessions 2. Now has reached maintenance dosing 3. Continue total-body with extra to legs only, but will decrease frequency as follows: 4. We will cut back to twice weekly phototherapy beginning next week Mondays and Wednesdays only for1 month and come back to once weekly therapies Mondays only for another month, then by August 06 discontinue altogether 5. Patient will contact me if she has further problems. Would expect little chance of flare/recurrence with this regimen CC: Lolly Kerr MD documented in this encounter Plan of Treatment Not on filedocumented as of this encounter Visit Diagnoses Diagnosis Psoriasis, guttate Other psoriasis documented in this encounter Care Teams Store Clerk Checker Relationship Specialty Start Date End Date Lolly Oliveira MD PCP - General 07/17/13 [address] [place] [address] documented as of this encounter
--- OUTSIDE RECORDS SUMMARY | 2022-01-16 13:15 | XMS_ITS | Encounter Summary ---
:1950 [place] [address] Care Team Providers Name Role Phone Lolly Oliveira MD Primary Care Provider Encounter Details Date Type Department Care Team Description 07/26/2013 Hospital Encounter Mammography at [facility] Mammographic [facility] [place] [phone] Social History Tobacco Use Types Packs/Day Years Used Date Never Assessed Sex Assigned at Date Recorded Not on file documented as of this encounter Plan of Treatment Not on filedocumented as of this encounter Procedures Procedure Name Priority Date/Time Associated Diagnosis Comme nts SURGICAL Routine 07/26/2013 12:12 Results for this PATHOLOGY REPORT PM EDT procedure a re in the results section. MAMMO SPECIMEN Routine 07/26/2013 11:58 Mammographic Results f or this IMAGING DURING AM EDT microcalcification procedu re are in BIOPSY the results section. documented in this encounter Results Surgical Pathology Report (07/26/2013 12:12 PM EDT) Component Value Ref Test Analysis Performed At [facility] Method Time Signature Surgical CERNER Pathology ? [facility] Report ? Provider: ?? ELENO CHRISTIAN ?? Pt. Name: ?? JING ALVARENGA ? Acc #: ?[id number] ?Pt. MRN: ?[id number] ? Col Date: ?? 4 ? /Sex: ?1950,(62 years),Female ? Rec Date: ?? 07/26/2013 ? LOC: ?3S ? SURGICAL PATHOLOGY ? ---Pathologic Diagnosis--- ? Needle biopsies: ?Right breast ? Diagnosis: ?1. 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 2. Small radial sclerosing lesion with usual ductal ?hyperplasia (appears largely excised) ? Microcalcifications: ??Associated with adenosis, colu mnar cell ? change/hyperplasia, and benign lobules ? CR-0 ? 07/28/13 ? YAJAIRA ? 07/28/13 Verified by: ? Kike MENDOZA, Kwame Constantino ? Pathologist ? (Electronic Si gnature) ? The attending pathologist whose signature appears o n this report has ? reviewed all diagnostic slides and has edited the gage ss and/or ? microscopic portion of the report in rendering the fi nal pathologic ? diagnosis. ? ---Comment--- ? Additional levels (A1,A2) were examined. ? ---Microscopic Description--- ? Immunohistochemistry Studies: ? Formalin-fixed, paraf fin-embedded tissue sections are studied using the B- ? SA system technique w ith appropriate positive and negative controls. ??These ? IHC studies provide t he pathologist with adjunctive diagnostic information. ? Antibody specificity has been verified by testing antibodies on a series of ? in-house tissues with known immunohistochemical perfo rmance ? characteristics. The clinical interpretation of any antibody positive ? staining or its absence is evaluated within the fidencio xt of clinical ? presentation, morphol ogy, histopathological criteria and other diagnostic ? tests. ? Block ?Antibody ? Result (Posi tive/Negative) ? A2 ? E-cadherin ? Negative for lobular neoplasia ? ---Gross Description--- ? A - Received in two containers: ? 1 - Labeled/Fixative: Right breast calcifications, fo rmalin. ? Quantity/Size: ??, Ranging from 1.0-2.8 cm. ? Description: Partially fragmented, fibrofatty needle core biopsies. ? [facility] ? Provider: ?? ELENO CHRISTIAN ?? Pt. Name: ?? JING ALVARENGA ? Acc #: ?[id number] ?Pt. MRN: ?[id number] ? Col Date: ?? 4 ? /Sex: ?1950,(62 years),Female ? Rec Date: ?? 07/26/2013 ? LOC: ?3S ? SURGICAL PATHOLOGY ? Sections/Processing: Submitted in (A1-2). ? 2 - Labeled/Fixative: Right breast no calcifications, formalin. ? Quantity/Size: Multiple, ranging from 0.4-0.8 cm. ? Description: Fragmented, fatty needle core biopsies. ? Sections/Processing: Submitted in (A3-4). ? Ischemic Time: Eight minutes. (T4) ??ejr ? ---Clinical Information--- ? Specimen Submitted: ? A - Right breast calcifications ? Clinical History: ? Right breast calcifications ? Clinical Diagnosis: ? FCD, adenosis, DCIS Specimen (Source) Anatomical Collection Method Collection Time Re ceived Time Location / / Volume Laterality 07/26/2013 12:12 PM EDT Eleno Christian MD PATHOLOGY/CYTOLOGY ORDERABLE S Performing Organization Address City/State/ZIP Code Phon e Number [place] [id number] [facility] [facility] Mammo Specimen Imaging During Biopsy (07/26/2013 11:58 AM EDT) Anatomical Region Laterality Modality Breast N/A Mammography Specimen (Source) Anatomical Collection Method Collection Time Re ceived Time Location / / Volume Laterality 07/26/2013 11:58 AM EDT Impressions 07/28/2013 5:26 PM EDT Impression: concordant Recommendation: f/u mammography in one y ear. ??As discussed with Ms. Alvarenga by Dr. Christian on 07/28/13. ?? I [...] are present on specimen digital X-ray. A [employer] Eviva-Stereo 13 Cylinder marker clip was placed. [...] are present on specimen digital X-ray. A [employer] Eviva-Stereo 13 Cylinder marker clip was placed. [...] one y ear. As discussed with Ms. Alvarenga by Dr. Christian on 07/28/13. I performed the procedure without a resi dent. Alia Fraire MD IMG MAMMO ORDERABLES documented in this encounter Visit Diagnoses Diagnosis Mammographic microcalcification documented in this encounter Care Teams Storage Garage Manager Relationship Specialty Start Date End Date Lolly Oliveira MD PCP - General 07/17/13 [address] [place] [address] documented as of this encounter
--- OUTSIDE RECORDS SUMMARY | 2022-01-16 13:15 | XMS_ITS | Encounter Summary ---
:1950 Author Organization [facility] [place] [address] Care Team Providers Name Role Phone Lolly Oliveira MD Primary Care Provider Encounter Details Date Type Department Care Team Description 07/18/2013 Orders Only Radiology Alia Fraire, Mammographic [facility] microcalcification ([facility]) [facility] [id number] DIAGNOSTIC [phone] [place] [address] Social History Tobacco Use Types Packs/Day Years Used Date Never Assessed Sex Assigned at Date Recorded Not on file documented as of this encounter Plan of Treatment Not on filedocumented as of this encounter Results Mammo Specimen Imaging During Biopsy (07/26/2013 11:58 [...] ON 07/26/13: Informed consent was obtained. Using malcolm rile technique and 1% lidocaine used for [...] ON 07/26/13: Informed consent was obtained. Using malcolm rile technique and 1% lidocaine used for [...] in one y ear. As discussed with Lyle by Dr. Christian on 07/28/13. I performed the procedure without a resi dent. Alia Fraire MD IMG MAMMO ORDERABLES MAMMO S/P Localization device images (BX, Needle [...] ON 07/26/13: Informed consent was obtained. Using malcolm rile technique and 1% lidocaine used for [...] are present on specimen digital X-ray. A [employer] Eviva-Stereo 13 Cylinder marker clip was placed. [...] ON 07/26/13: Informed consent was obtained. Using malcolm rile technique and 1% lidocaine used for [...] dent. Alia Fraire MD IMG MAMMO ORDERABLES Mammo stereotactic (07/26/2013 11:57 AM EDT) Anatomical [...] ON 07/26/13: Informed consent was obtained. Using malcolm rile technique and 1% lidocaine used for [...] ON 07/26/13: Informed consent was obtained. Using malcolm rile technique and 1% lidocaine used for [...] are present on specimen digital X-ray. A [employer] Eviva-Stereo 13 Cylinder marker clip was placed. [...] one y ear. As discussed with Ms. Lunaslin by Dr. Christian on 07/28/13. I performed the procedure without a resi dent. Alia Fraire MD IMG MAMMO ORDERABLES Mammo direct digital unilateral (07/20/2013 10:23 AM [...] does not layer and, therefore, are not retail sales representative of milk of calcium. Again , [...] does not layer and, therefore, are not retail sales representative of milk of calcium. Again , these have an amorphous and punctate appearance and remain indeterminate. Malcolm reotactic guided biopsy is recommended. Alia Fraire MD IMG MAMMO ORDERABLES documented in this encounter Visit Diagnoses Diagnosis Mammographic microcalcification - Primar y Mammographic microcalcification Mammographic microcalcification Mammographic microcalcification Mammographic microcalcification documented in this encounter Care Teams Dumping Machine Operator Relationship Specialty Start Date End Date Lolly Oliveira MD PCP - General 07/17/13 [address] [place] [address] documented as of this encounter
--- OUTSIDE RECORDS SUMMARY | 2022-01-16 13:15 | XMS_ITS | Encounter Summary ---
:1950 [place] [address] Care Team Providers Name Role Phone Unavailable Primary Care Provider Unavailable Encounter Details Date Type Department Care Team Description 07/14/2013 External Results [place] [facility], [address] [place] Rocha [phone] Social History Tobacco Use Types Packs/Day Years Used Date Never Assessed Sex Assigned at Date Recorded Not on file documented as of this encounter Plan of Treatment Not on filedocumented as of this encounter Procedures Procedure Name Priority Date/Time Associated Diagnosis Comme nts MAMMOGRAM SCAN Routine 07/04/2012 MAMMOGRAM SCAN Routine 06/29/2011 MAMMOGRAM SCAN Routine 06/23/2010 MAMMOGRAM SCAN Routine 06/21/2009 documented in this encounter Results Scan Doc: Mammogram (07/04/2012) Anatomical Region Laterality Modality Other Narrative This result has an attachment that is no t available. Scanning Provider MEDIA MGR SCAN EXT ORDR/RSLT Scan Doc: Mammogram (06/29/2011) Anatomical Region Laterality Modality Other Narrative This result has an attachment that is no t available. Scanning Provider MEDIA MGR SCAN EXT ORDR/RSLT Scan Doc: Mammogram (06/23/2010) Anatomical Region Laterality Modality Other Narrative This result has an attachment that is no t available. Scanning Provider MEDIA MGR SCAN EXT ORDR/RSLT Scan Doc: Mammogram (06/21/2009) Anatomical Region Laterality Modality Other Narrative This result has an attachment that is no t available. Scanning Provider MEDIA MGR SCAN EXT ORDR/RSLT documented in this encounter Visit Diagnoses Not on filedocumented in this encounter
--- OUTSIDE RECORDS SUMMARY | 2022-01-21 09:22 | XMS_ITS | Encounter Summary ---
:1950 Author Organization [facility] Address [address] [place] [address] Care Team Providers Name Role Phone Lolly Oliveira MD Primary Care Provider Encounter Details Date Type Department Care Team Description 04/12/[address] [facility] - Lolly Mendoza MD conversion [address] [facility] [address] [place], [place] [address] [place] [address] [phone] Social History Tobacco Use Types Packs/Day Years [...] Component Value Ref Test Analysis Performed At [facility] Method Time Signature Pathology CYTOPATHOLOGY REPORT [...] ? ThinPrep Pap Test, Cervix/Endocervix, processed on Runa ThinPrep Imaging System, with manual evaluation Last [...] and electronically signed by: ? Anahy Kelly, [facility](ASCP) ? Report Date: ??04/18/2007 12:31 End of Report Specimen (Source) Anatomical Location Collection Method / Collectio n Time Received Time / Laterality Volume 04/12/2007 04/13/2007 Lolly Oliveira MD PATHOLOGY ORDERABLES Performing Organization Address City/State/ZIP Code Phon e Number [facility] [address] [place] [address] SERVICES [facility] [address] [place] [address] documented in this encounter Visit Diagnoses Not on filedocumented in this encounter Care Teams Ambulatory Care Coordinator Relationship Specialty Start Date End Date Lolly Oliveira MD PCP - General 11/13/08 [address] [place], [place] [address] documented as of this encounter
--- OUTSIDE RECORDS SUMMARY | 2022-01-21 09:22 | XMS_ITS | Encounter Summary ---
:1950 Author Organization [facility] Address [address] [place] [address] Care Team Providers Name Role Phone Lolly Oliveira MD Primary Care Provider Encounter Details Date Type Department Care Team Description 05/02/2004 Results Only [facility] - Lolly Mendoza MD conversion 201 [facility] [address] [place], [place] [address] [place] [id number] [phone] Social History Tobacco Use Types Packs/Day Years [...] PAPILLOMA VIRUS DNA TEST (05/02/2004 9:32 EST) [facility] Method Time Signature Specimen Cervix, BERNARDO Description ThinPrep [facility] vial Result Negative for TOVA HPV types [facility] 16, 18, 31, 33, 35, 39, 45, 51, 52, 56, 58, 59, and 68. Report Status Final [facility] [id number] [facility] Specimen Anatomical Collection Method Collection Time Receive d Time (Source) Location / / Volume Laterality 05/02/2004 9:32 05/10/2004 9 :32 EST EST Lolly Oliveira MD MICROBIOLOGY - GENERAL ORDER LOREN Performing Organization Address City/State/ZIP Code Phon e Number [facility] [address] [place] [address] SERVICES [facility] [address] [place] [address] CYTOPATHOLOGY (05/02/2004 0:00 EST) Component Value Ref Test Analysis Performed At [facility] Range Method Time Signature Pathology CYTOPATHOLOGY [...] Organization Address City/State/ZIP Code Phon e Number [facility] [address] [place] [address] SERVICES [facility] [address] [place] [address] documented in this encounter Visit Diagnoses Not on filedocumented in this encounter Care Teams Call Or Contact Centre Manager Relationship Specialty Start Date End Date Lolly Oliveira MD PCP - General 11/13/08 [address] [place] [address] documented as of this encounter
--- OUTSIDE RECORDS SUMMARY | 2022-01-21 09:22 | XMS_ITS | Encounter Summary ---
:[address] [facility] Address [address] [place] [address] Care Team Providers Name Role Phone Unavailable Primary Care Provider Unavailable Encounter Details Date Type Department Care Team Description 11/07/2008 Orders Only [facility] Kenneth Krishnan MD Laboratory Services - [address] [place] [address] [place] [address] [phone] Social History Tobacco Use Types Packs/Day Years Used Date Smoking Tobacco: Never Assessed Sex Assigned at Date Recorded Not on file documented as of this encounter Plan of Treatment Not on filedocumented as of this encounter Procedures Procedure Name Priority Date/Time Associated Diagnosis Comme [facility] SURGICAL PATHOLOGY Routine 11/07/2008 0:00 EDT Re sults for this procedure are i n the results section. documented in this encounter Results SURGICAL PATHOLOGY (11/07/2008 0:00 EDT) Component Value Ref Test Analysis Performed At [facility] Method Time Signature Pathology SURGICAL PATHOLOGY REPORT ? J LUIS HER Report: Reports generated via electr LifeNex[employer] interface contain original data; ? [facility] however they are lacking the format of the original report. ? Caution should be taken when reading/interpreting unformatted reports. ? Name: ? LYLE, JING ? Accession #: ? [id number] ? : ? 1950 (Age: 58) ??F [...] Organization Address City/State/ZIP Code Phon e Number [facility] [address] [place] [address] SERVICES [facility] [address] [place] [address] documented in this encounter Visit Diagnoses Not on filedocumented in this encounter
--- OUTSIDE RECORDS SUMMARY | 2022-01-21 09:22 | XMS_ITS | Encounter Summary ---
:1950 [place] [address] Care Team Providers Name Role Phone Lolly Oliveira MD Primary Care Provider Encounter Details Date Type Department Care Team Description 07/26/2013 [place] [facility] [place] [facility] [place] [phone] Social History Tobacco Use Types Packs/Day Years [...] microcalcification documented in this encounter Care Teams Powerbuilder Relationship Specialty Start Date End Date Lolly Oliveira MD PCP - General 07/17/13 [address] [place] [address] documented as of this encounter
--- OUTSIDE RECORDS SUMMARY | 2022-01-21 09:22 | XMS_ITS | Encounter Summary ---
:1950 Author Organization [facility] [place] [address] Care Team Providers Name Role Phone Lolly Oliveira MD Primary Care Provider Encounter Details Date Type Department Care Team Description 07/20/2013 Hospital Mammography [facility] Mammographic Encounter [facility] Lolly Oliveira MD [address] [place] [address] [place] [phone] Social History Tobacco Use Types Packs/Day Years [...] does not layer and, therefore, are not commercial sales representative of milk of calcium. Again [...] does not layer and, therefore, are not commercial sales representative of milk of calcium. Again , these have an amorphous and punctate appearance and remain indeterminate. Malcolm reotactic guided biopsy is recommended. Alia Fraire MD IMG MAMMO ORDERABLES documented in this encounter Visit Diagnoses Diagnosis Mammographic microcalcification documented in this encounter Care Teams Gas Substation Operator Relationship Specialty Start Date End Date Lolly Oliveira MD PCP - General 07/17/13 [address] [place] [address] documented as of this encounter
--- OUTSIDE RECORDS SUMMARY | 2022-01-21 09:22 | XMS_ITS | Encounter Summary ---
:1950 Author Organization [facility] [place] [address] Care Team Providers Name Role Phone Lolly Oliveira MD Primary Care Provider Encounter Details Date Type Department Care Team Description 07/26/2013 Hospital Mammography at [facility] Mammographic Encounter [facility] Lolly Oliveira MD [address] [place] [address] [place] [phone] Social History Tobacco Use Types Packs/Day Years [...] Organization Address City/State/ZIP [place] [address] [facility] documented in this encounter Visit Diagnoses Diagnosis [...] Routine documented in this encounter Care Teams Helicopter Repairer Relationship Specialty Start Date End Date Lolly Oliveira MD PCP - General 07/17/13 [address] [place] [address] documented as of this encounter
--- OUTSIDE RECORDS SUMMARY | 2022-01-21 09:22 | XMS_ITS | Encounter Summary ---
:1950 Author Organization [facility] Address [address] [place] [address] Care Team Providers Name Role Phone Lolly Oliveira MD Primary Care Provider Encounter Details Date Type Department Care Team Description 05/27/2021 Lab Requisition [facility] Iman Moran for other Pathology & M, DO general examination Laboratory Medicine - [address] [employer] [facility] [address] [place] [phone] Social History Tobacco Use Types Packs/Day Years [...] Component Value Ref Test Analysis Performed At [facility] Range Method Time Signature Note to The following 05/30/2021 [facility] Patient pathology results 13:31 [facility] have been LABORATORY interpreted by SERVICES your pathologist and may be available to you before your health provider has had the opportunity to review them. Please allow time for your provider to receive these results and explore management options, if applicable. Final A. COLON, POLYP AT 90 CM, BIOPSY/POLYPECTOMY: 05/30/2021 [facility] Diagnosis - Tubular adenoma. 13:31 [facility] SERVICES Attestation By the signature 05/30/2021 [facility] Electronically below, the 13:31 [facility] signed by attending LABORATORY Pippa Mcgee physician HARRIETT Fierro MD on certifies that 2021 at they have 1) 1331 personally conducted a gross and/or microscopic examination of the described specimen(s), and/or personally interpreted the results of laboratory testing of the described specimen(s), and 2) personally rendered or confirmed the above diagnosis. Clinical Severe 05/30/2021 [facility] History diverticula and 13:31 [facility] polypectomy x1 LABORATORY SERVICES Gross A. 05/30/2021 [facility] Description Received in formalin sharmaine d with proper patient identification (initials J, K) and colon polyp x1 at 90 cm is a light pineda polypoid tissue measuring 0.2 x 0.2 x 0.2 cm. Submitted intact in A1. 13:31 [facility] LABORATORY MICKEY CARLOS(ASCP) 05/27/2021 19:11 SERVICES Performing Lab [facility] 05/30/2021 [facility] AL LAB 13:31 [facility] LABORATORY SERVICES Scanned Images 05/30/2021 [facility] 13:31 [facility] LABORATORY SERVICES Specimen Anatomical Collection Method Collection Time Receive d Time (Source) Location / / Volume Laterality Tissue ENTIRE COLON / 05/27/2021 11:23 2 Unknown EDT 16:33 EDT Iman Moran DO PATHOLOGY ORDERABLES Performing Organization Address City/State/ZIP Code Phon e Number [facility] [address] [place] [address] SERVICES documented in this encounter Visit Diagnoses Diagnosis Encounter for other general examination documented in this encounter Care Teams Emt P Relationship Specialty Start Date End Date Lolly Oliveira MD PCP - General 11/13/08 [address] [place], [place] [address] documented as of this encounter
--- OUTSIDE RECORDS SUMMARY | 2022-01-21 09:22 | XMS_ITS | Encounter Summary ---
:1950 [place] [address] Care Team Providers Name Role Phone Lolly Oliveira MD Primary Care Provider Encounter Details Date Type Department Care Team Description 07/26/2013 Hospital En[place] [facility] [place] [facility] [place] [phone] Social History Tobacco Use Types Packs/Day Years [...] Component Value Ref Test Analysis Performed At [facility] Method Time Signature Surgical CERNER Pathology ? [facility] Report ? Provider: ?? ELENO CHRISTIAN ?? Pt. Name: ?? JING ALVARENGA ? Acc #: ?[id number] ?Pt. MRN: ?[id number] ? Col Date: ?? 4 ? /Sex: [...] Partially fragmented, fibrofatty needle core biopsies. ? [facility] ? Provider: ?? ELENO CHRISTIAN ?? Pt. Name: ?? JING ALVARENGA ? Acc #: ?[id number] ?Pt. MRN: ?[id number] ? Col Date: ?? 4 ? /Sex: [...] Organization Address City/State/ZIP Code Phon e Number [place] [phone] [employer] Mammo Specimen Imaging During Biopsy (07/26/2013 11:58 [...] are present on specimen digital X-ray. A [employer] Eviva-Stereo 13 Cylinder marker clip was placed. [...] are present on specimen digital X-ray. A [employer] Eviva-Stereo 13 Cylinder marker clip was placed. [...] microcalcification documented in this encounter Care Teams Rubber Boots And Shoes Repairer Relationship Specialty Start Date End Date Lolly Oliveira MD PCP - General 07/17/13 [address] [place] [address] documented as of this encounter
--- OUTSIDE RECORDS SUMMARY | 2022-01-21 09:22 | XMS_ITS | Encounter Summary ---
:1950 Author Organization [facility] Address [address] [place] [address] Care Team Providers Name Role Phone Lolly Oliveira MD Primary Care Provider Encounter Details Date Type Department Care Team Description 11/13/2020 Lab Requisition [facility] Outr Resulting Lab, Pathology & Laboratory Provider [facility] [address] [place] [address] Social History Tobacco Use Types Packs/Day Years Used Date Smoking Tobacco: Never Assessed Sex Assigned at Date Recorded Not on file documented as of this encounter Plan of Treatment Not on filedocumented as of this encounter Procedures Procedure Name Priority Date/Time Associated Diagnosis Comme nts COVID[facility] Today 11/13/2020 7:30 EDT LAB PCR COVID-19 TESTING Routine 11/13/2020 7:30 EDT Resu lts for this procedure are i n the results section. documented in this encounter Results COVID-19 TEST [facility] LAB PCR (11/13/2020 7:30 EDT) Specimen Anatomical Location Collection Method Collection Time Received Time (Source) / Laterality / Volume Swab ENTIRE NASOPHARYNX 11/13/2020 7:30 2020 / Unknown EDT 20:57 EDT Provider Outr Resulting Lab MICROBIOLOGY - GENERAL ORD ERABLES Performing Organization Address City/State/ZIP Code Phon e Number [facility] [address] [place] [address] SERVICES COVID-19 TESTING (11/13/2020 7:30 EDT) Analysis Performed At Patho logist Time Signature COVID-19 Negative Negative 11/14/2020 [facility] rt-PCR Result 11:46 EDT [...] using the med SA RS-CoV-2 assay (Stephanie [employer] on the Med 6800 System Performing Lab Med [address] [facility] 11/14/2020 11:46 E DT [facility] Lab LABORATORY SERVICES Specimen Anatomical Collection Method Collection Time Receive d Time (Source) Location / / Volume Laterality Swab 11/13/2020 7:30 11/13/2020 EDT 20:57 EDT Provider Outr Resulting Lab MICROBIOLOGY - GENERAL ORD ERABLES Performing Organization Address City/State/ZIP Code Phon e Number [facility] [address] [place] [address] SERVICES documented in this encounter Visit Diagnoses Not on filedocumented in this encounter Care Teams Housekeeping Laundry Worker Relationship Specialty Start Date End Date Lolly Oliveira MD PCP - General 11/13/08 [address] [place], [place] [address] documented as of this encounter
--- OUTSIDE RECORDS SUMMARY | 2022-01-21 09:22 | XMS_ITS | Encounter Summary ---
:1950 Author Organization [facility] Address [address] [place] [address] Care Team Providers Name Role Phone Lolly Oliveira MD Primary Care Provider Encounter Details Date Type Department Care Team Description 06/16/2012 Results Only [facility] Janice Oliveira MD Laboratory Services - [place] [place] [address] [address] [place] [address] [phone] Social History Tobacco Use Types Packs/Day Years [...] Component Value Ref Test Analysis Performed At [facility] Method Time Signature Pathology CYTOPATHOLOGY REPORT [...] e Number [facility] [address] [place] [address] SERVICES [facility] [address] [place] [address] documented in this encounter Visit Diagnoses Not on filedocumented in this encounter Care Teams Staff Software Engineer Relationship Specialty Start Date End Date Lolly Oliveira MD PCP - General 11/13/08 [address] [place] [address] documented as of this encounter
--- OUTSIDE RECORDS SUMMARY | 2022-01-21 09:22 | XMS_ITS | Encounter Summary ---
:1950 Author Organization [facility] Address [address] [place] [address] Care Team Providers Name Role Phone Lolly Oliveira MD Primary Care Provider Encounter Details Date Type Department Care Team Description 03/06/2003 Results Only [facility] - Lolly Mendoza MD conversion [address] [facility] [address] [place], [place] [address] [place] [address] [phone] Social History Tobacco Use Types Packs/Day Years [...] Component Value Ref Test Analysis Performed At [facility] Method Time Signature Pathology CYTOPATHOLOGY REPORT TOVA [...] City/State/ZIP Code Phon e Number [facility] [address] [place] [address] SERVICES [facility] [address] [place] [address] documented in this encounter Visit Diagnoses Not on filedocumented in this encounter Care Teams Gopherman Relationship Specialty Start Date End Date Lolly Oliveira MD PCP - General 11/13/08 [address] [place] [address] documented as of this encounter
--- OUTSIDE RECORDS SUMMARY | 2022-01-21 09:22 | XMS_ITS | Encounter Summary ---
:1950 Author Organization [facility] [place] [address] Care Team Providers Name Role Phone Lolly Oliveira MD Primary Care Provider Encounter Details Date Type Department Care Team Description 07/18/2013 Orders Only Radiology Alia Fraire, Mammographic [facility] microcalcification (Primary [facility]) [facility] [id number] DIAGNOSTIC [phone] [place] [address] Social History Tobacco Use Types Packs/Day Years [...] in one y ear. As discussed with Lyel by Dr. Christian on 07/28/13. I performed [...] are present on specimen digital X-ray. A [employer] Eviva-Stereo 13 Cylinder marker clip was placed. [...] are present on specimen digital X-ray. A [employer] Eviva-Stereo 13 Cylinder marker clip was placed. [...] in one y ear. As discussed with Alida Lyle by Dr. Christian on 07/28/13. I [...] does not layer and, therefore, are not safety representative of milk of calcium. Again , [...] does not layer and, therefore, are not safety representative of milk of calcium. Again , these have an amorphous and punctate appearance and remain indeterminate. Malcolm reotactic guided biopsy is recommended. Alia Fraire MD IMG MAMMO ORDERABLES documented in this encounter Visit Diagnoses Diagnosis Mammographic microcalcification - Primar y Mammographic microcalcification Mammographic microcalcification Mammographic microcalcification Mammographic microcalcification documented in this encounter Care Teams Platform Software Engineer Relationship Specialty Start Date End Date Lolly Oliveira MD PCP - General 07/17/13 [address] [place] [address] documented as of this encounter
--- OUTSIDE RECORDS SUMMARY | 2022-01-21 09:22 | XMS_ITS | Encounter Summary ---
:1950 Author Organization [facility] [place] [address] Care Team Providers Name Role Phone Lolly Oliveira MD Primary Care Provider Encounter Details Date Type Department Care Team Description 01/14/2022 Telephone Dermatology at [facility] Nora [place] LPN [address] [place] [address] Social History Tobacco Use Types Packs/Day Years Used Date Smoking Tobacco: Never Sex Assigned at Date Recorded Not on [...] return to phototherapy. New order sent to [facility]. Reviewed with patient Dr. Mar recommendation. She agrees with plan of care. Advised patient order will be sent to [facility]. She voiced understanding. documented in this encounter Plan of Treatment Not on filedocumented as of this encounter Visit Diagnoses Not on filedocumented in this encounter Care Teams Senior Enterprise Architect Relationship Specialty Start Date End Date Lolly Oliveira MD PCP - General 07/17/13 [address] [place] [address] documented as of this encounter
--- OUTSIDE RECORDS SUMMARY | 2022-01-21 09:22 | XMS_ITS | Encounter Summary ---
:1950 Author Organization [facility] Address [address] [place] [address] Care Team Providers Name Role Phone Lolly Oliveira MD Primary Care Provider Encounter Details Date Type Department Care Team Description 02/11/2021 Lab Requisition [facility] Outr Resulting Lab, Pathology & Laboratory Provider [facility] [address] [place] [address] Social History Tobacco Use Types Packs/Day [...] City/State/ZIP Code Phon e Number [facility] [address] [place] [address] SERVICES COVID-19 TESTING (02/11/2021 8:00 EST) [facility] Signature COVID-19 Negative Negative 02/12/2021 [facility] MED[facility] rt-PCR Result 14:17 EST CENTER LABORATORY [...] using the med SA RS-CoV-2 assay ([employer] on the Med 6800 System Performing Lab Med 6800 [facility] 02/12/2021 14:17 E [facility] Lab LABORATORY SERVICES Specimen Anatomical Collection Method Collection Time Receive d Time (Source) Location / / Volume Laterality Swab 02/11/2021 8:00 02/11/2021 EST 22:22 EST Provider Outr Resulting Lab MICROBIOLOGY - GENERAL ORD ERABLES Performing Organization Address City/State/ZIP Code Phon e Number [facility] [address] [place] [address] SERVICES documented in this encounter Visit Diagnoses Not on filedocumented in this encounter Care Teams Bullet Charging Machine Operator Relationship Specialty Start Date End Date Lolly Oliveira MD PCP - General 11/13/08 [address] [place], [place] [address] documented as of this encounter
--- OUTSIDE RECORDS SUMMARY | 2022-01-21 09:22 | XMS_ITS | Encounter Summary ---
:1950 Author Organization [facility] [place] [address] Care Team Providers Name Role Phone Lolly Oliveira MD Primary Care Provider Encounter Details Date Type Department Care Team Description 07/17/2013 Hospital Encounter XRay at [facility] [address] [facility] [address] [place] [address] [place] [address] Social History Tobacco Use Types Packs/Day Years Used Date Smoking Tobacco: Never Assessed Sex Assigned at Date Recorded Not on file documented as of this encounter Consult Notes Provider, Hollie - 07/17/2013 7:56 AM EDT documented in this encounter Plan of Treatment Not on filedocumented as of this encounter Visit Diagnoses Not on filedocumented in this encounter Care Teams House Painter Helper Relationship Specialty Start Date End Date Lolly Oliveira MD PCP - General 07/17/13 [address] [place], [place] [address] documented as of this encounter
--- OUTSIDE RECORDS SUMMARY | 2022-01-21 09:22 | XMS_ITS | Encounter Summary ---
:1950 Author Organization [facility] Address [address] [place] [address] Care Team Providers Name Role Phone Lolly Oliveira MD Primary Care Provider Encounter Details Date Type Department Care Team Description 05/29/2002 Results Only [facility] - Lyric Quinn od, Silvia Blandon, DOOR MAKER conversion [address] [facility] [address] [place] [phone] (Wo rk) Social History Tobacco Use Types [...] Component Value Ref Test Analysis Performed At [facility] Method Time [facility] Pathology CYTOPATHOLOGY REPORT TOVA Report: [facility] [...] Receive Date: ? 05/31/2002 Provider: ?SILVIA DIEHL DOOR MAKER Copy to: ? Specimen/Source: ?ThinPrep Pap Test, [...] / Laterality Volume 05/29/2002 05/31/2002 Silvia Diehl DOOR MAKER PATHOLOGY ORDERABLES Performing Organization Address City/State/ZIP Code Phon e Number [facility] [address] [place] [address] SERVICES [facility] [address] [place] [address] documented in this encounter Visit Diagnoses Not on filedocumented in this encounter Care Teams Supervisor Plate Forming Relationship Specialty Start Date End Date Lolly Oliveira MD PCP - General 11/13/08 [address] [place] [address] documented as of this encounter
--- OUTSIDE RECORDS SUMMARY | 2022-01-21 09:22 | XMS_ITS | Encounter Summary ---
:1950 Author Organization [facility] Address [address] [place] [address] Care Team Providers Name Role Phone Lolly Oliveira MD Primary Care Provider Encounter Details Date Type Department Care Team Description 04/17/2005 Results Only [facility] - Lolly Mendoza MD conversion [address] [facility] [address] [place], [place] [address] [place] [address] [phone] Social History Tobacco Use Types Packs/Day Years Used Date Smoking Tobacco: Never Assessed Sex Assigned at Date Recorded Not on file documented as of this encounter Plan of Treatment Not on filedocumented as of this encounter Procedures Procedure Name Priority Date/Time Associated Diagnosis Comme nts CYTOPATHOLOGY Routine 04/17/2005 0:00 EST Results for this procedure are i n the results section . documented in this encounter Results CYTOPATHOLOGY (04/17/2005 0:00 EST) Component Value Ref Test Analysis Performed At [facility] Method Time Signature Pathology CYTOPATHOLOGY REPORT TOVA Report: [facility] Reports generated via electronic interface contain original data; however they are lacking the format of the original report. Caution should be taken when reading/interpreting unformatte d reports. Name: ? JING ALVARENGA ? Accession #: ? [id number] : ? 1950 (Age: 54) ??F ?Collect Date: ? 04/17/2005 Location: ? [facility] ? Receive Date: ? 04/21/2005 Provider: ?LOLLY OLIVEIRA MD Copy to: ? Specimen/Source: ? ThinPrep Pap Test, Cervix/Endocervix, processed on [employer] GlobalPrep Imaging System, with manual evaluation Last Menstrual Period: ? Treatment History: ? Cone biopsy: 25 years ago ? SPECIMEN ADEQUACY ? Satisfactory for Evaluation - transformation zone component present GENERAL CATEGORIZATION ? Negative for Intraepithelial Lesion or Malignancy ? Document reviewed and electronically signed by: ? BERHANE Faulkner(ASCP) ? Report Date: ??04/23/2005 10:56 End of Report Specimen (Source) Anatomical Location Collection Method / Collectio n Time Received Time / Laterality Volume 04/17/2005 04/21/2005 Lolly Oliveira MD PATHOLOGY ORDERABLES Performing Organization Address City/State/ZIP Code Phon e Number [facility] [address] [place] [address] SERVICES [facility] [address] [place] [address] documented in this encounter Visit Diagnoses Not on filedocumented in this encounter Care Teams Superintendent Police Relationship Specialty Start Date End Date Lolly Oliveira MD PCP - General 11/13/[address] [place] [address] documented as of this encounter
--- OUTSIDE RECORDS SUMMARY | 2022-01-21 09:22 | XMS_ITS | Encounter Summary ---
:1950 Author Organization [facility] Address [address] [place] [address] Care Team Providers Name Role Phone Lolly Oliveira MD Primary Care Provider Encounter Details Date Type Department Care Team Description 03/21/2019 Lab Requisition [facility] Unknown, Provider, Pathology & Laboratory [facility] [address] [place] [address] [place] [address] Social History Tobacco Use Types Packs/Day Years [...] Signature Vitamin B12 [phone] 03/22/2019 [facility] pg/mL 11:52 EST CENTER LABORATORY SERVICES Specimen Anatomical Collection Method Collection Time Receive d Time (Source) Location / / Volume Laterality Blood VENOUS BLOOD / 03/16/2019 9:25 03/21/2019 Unknown EST 21:35 EST Provider Unknown CHEMISTRY & BLOOD GAS ORDERA BLES Performing Organization Address City/State/ZIP Code Phon e Number [facility] [address] [place] [address] SERVICES documented in this encounter Visit Diagnoses Not on filedocumented in this encounter Care Teams Klystrom Tube Tester Relationship Specialty Start Date End Date Lolly Oliveira MD PCP - General 11/13/08 [address] [place] [address] documented as of this encounter
--- OUTSIDE RECORDS SUMMARY | 2022-01-21 09:22 | XMS_ITS | Encounter Summary ---
:1950 Author Organization [facility] [place] [address] Care Team Providers Name Role Phone Lolly Oliveira MD Primary Care Provider Encounter Details Date Type Department Care Team Description 10/09/2021 Telephone Dermatology at [facility] Nora [place] LPN [address] [place] [address] Social History Tobacco Use [...] on filedocumented in this encounter Care Teams Counter Tender Relationship Specialty Start Date End Date Lolly Oliveira MD PCP - General 07/17/13 [address] [place] [address] documented as of this encounter
--- OUTSIDE RECORDS SUMMARY | 2022-01-21 09:22 | XMS_ITS | Clinical Summary ---
:[address] [facility] Address [address] [place] [address] Care Team Providers Name Role Phone Lolly Oliveira MD Primary Care Provider Social History Tobacco Use Types Packs/Day Years Used Date Smoking Tobacco: Never Assessed Sex Assigned at Date Recorded Not on file Plan of Treatment Health Maintenance Due Date Last Done Comments Hepatitis C Screen 1950 COVID-19 Vaccine (#1) 02/08/1951 Fall Risk Screening 2013 Insurance Payer Benefit Plan Subscriber ID Effective Phone Address Typ e / Group Dates BC[place]BS [place] [id number] 2021-Pres [phone] Medicare MEDICARE ADVANTAGE ent [id number] [place] [address] Care Teams Trucking Manager Relationship Specialty Start Date End Date Lolly Oliveira MD PCP - General 11/13/08 [address] [place] [address]
--- OUTSIDE RECORDS SUMMARY | 2022-01-21 09:22 | XMS_ITS | Encounter Summary ---
:1950 Author Organization [facility] [place] [address] Care Team Providers Name Role Phone Lolly Oliveira MD Primary Care Provider Encounter Details Date Type Department Care Team Description 04/01/2021 Office Visit Dermatology at [facility] Psorias is, guttate [place] MD [address] [facility] Malcolm B DERMATOLOGY [place], [place] [phone] Social History Tobacco Use Types Packs/Day Years Used Date Smoking Tobacco: Never Sex Assigned at Date Recorded Not on file documented as of this encounter Progress Notes Clay Ramírez MD - 04/01/2021 3:30 PM EST 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 I last saw her in 2014 for benign skin examination. She referred today by Elena Raymond NP and Lolly Oliveira MD. apparently in December she developed a rash after having a staph strep sinusitis and being started on Augmentin. Despite cessation of the Augmentin the rash continued and is involved the upper and lower extremities and the torso. 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 She is gone through now 3of the 80 g tubes of the triamcinolone. 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 However she had a paternal cousin who had a significant widespread plaque psoriasis that she remembers. Physical examination reveals a pleasant 70-year-old woman who has guttate papules with a psoriasiform appearance on the arms and the legs. They are not pruritic. They also present on her torso and back. Assessment and plan: Guttate psoriasis 1. Discussed the option of topical therapies, methotrexate, versus phototherapy the patient and I have chosen the latter. Patient prefers to avoid oral medications and injectable medications at this time. 2. We will prepare orders for [facility] the surgery utilizing the narrowband UVB light unit to start immediately twice weekly for 2 months then return to clinic 3. Consent forms filled out General Information about therapy given to patient. 4. Discussed with patient the National psoriasis foundation website is an excellent source of information about psoriasis in general and her proposed treatment 5. Will refill her triamcinolone 0.1% cream apply twice daily to affected areas it dispense 80 g tube with 2 refills. 6. Return to clinic here in 2 months CC: JAMESON Curry MD documented in this encounter Plan of Treatment Not on filedocumented as of this encounter Visit Diagnoses Diagnosis Psoriasis, guttate Other psoriasis documented in this encounter Care Teams Pot Puller Relationship Specialty Start Date End Date Lolly Oliveira MD PCP - General 07/17/13 [address] [place] [address] documented as of this encounter
--- OUTSIDE RECORDS SUMMARY | 2022-01-21 09:22 | XMS_ITS | Encounter Summary ---
:1950 Author Organization [facility] [place] [address] Care Team Providers Name Role Phone Lolly Oliveira MD Primary Care Provider Reason for Visit Reason Comments Skin Check Encounter Details Date Type Department Care Team Description 11/23/2014 Office Visit Dermatology at Clay Ramírez MD Dermatofibroma; [place] [address] [place]; [address] Malcolm [place] [address] [place], [place] [phone] (Wo rk) [phone] Social History Tobacco Use Types Packs/Day Years [...] dyschromia documented in this encounter Care Teams Track Greaser Relationship Specialty Start Date End Date Lolly Oliveira MD PCP - General 07/17/13 [address] [place] [address] documented as of this encounter
--- OUTSIDE RECORDS SUMMARY | 2022-01-21 09:22 | XMS_ITS | Encounter Summary ---
:1950 [place] [address] Care Team Providers Name Role Phone Lolly Oliveira MD Primary Care Provider Encounter Details Date Type Department Care Team Description 07/26/2013 Orders Only Radiology Eleno Christian MD [facility] [place] [address] DIAGNOSTIC RADIOLOGY [phone] [place] [address] (Wo rk) Social History Tobacco Use Types [...] on filedocumented in this encounter Care Teams Customer Support Analyst Relationship Specialty Start Date End Date Lolly Oliveira MD PCP - General 07/17/13 [address] [place], [place] [address] documented as of this encounter
--- OUTSIDE RECORDS SUMMARY | 2022-01-21 09:22 | XMS_ITS | Encounter Summary ---
:1950 Author Organization [facility] Address [address] [place] [address] Care Team Providers Name Role Phone Lolly Oliveira MD Primary Care Provider Encounter Details Date Type Department Care Team Description 04/25/2009 Orders Only [facility] Janice Oliveira MD Laboratory Services - [place] [address] [place] [address] [address] [facility] [place] [address] [phone] Social History Tobacco Use Types Packs/Day Years Used Date Smoking Tobacco: Never Assessed Sex Assigned at Date Recorded Not on file documented as of this encounter Plan of Treatment Not on filedocumented as of this encounter Procedures Procedure Name Priority Date/Time Associated Diagnosis Comme [facility] CYTOPATHOLOGY Routine 04/25/2009 0:00 EST Results for this procedure are i n the results section . documented in this encounter Results CYTOPATHOLOGY (04/25/2009 0:00 EST) Component Value Ref Test Analysis Performed At [facility] Pathology CYTOPATHOLOGY REPORT ? TOVA Report: ? [facility] Reports generated via electr onic interface contain original data; ? however they are lacking the format of the original report. ? Caution should be taken when reading/interpreting unformatted reports. ? Name: ? JING MOTT ? Accession #: ? [id number] ? : ? 1950 (Age: 58) ??F [...] Organization Address City/State/ZIP Code Phon e Number [facility] [address] [place] [address] SERVICES [facility] [address] [place] [address] documented in this encounter Visit Diagnoses Not on filedocumented in this encounter Care Teams Business Development Coordinator Relationship Specialty Start Date End Date Lolly Oliveira MD PCP - General 11/13/[address] [place] [address] documented as of this encounter
--- OUTSIDE RECORDS SUMMARY | 2022-01-21 09:22 | XMS_ITS | Encounter Summary ---
:1950 Author Organization [facility] Address [address] [place] [address] Care Team Providers Name Role Phone Lolly Oliveira MD Primary Care Provider Encounter Details Date Type Department Care Team Description 02/20/2020 Lab Requisition [facility] Outr Resulting Lab, Pathology & Laboratory Provider [facility] [address] [place] [address] Social History Tobacco Use Types Packs/Day Years Used Date Smoking Tobacco: Never Assessed Sex Assigned at Date Recorded Not on file documented as of this encounter Plan of Treatment Not on filedocumented as of this encounter Procedures Procedure Name Priority Date/Time Associated Comments Diagnosis DO NOT ORDER Today 02/19/2020 16:30 Results for this STANDALONE - BROAD EST procedure are in COVID TEST the results section. COVID-19 TESTING Routine 02/19/2020 16:30 Results for this EST procedure are i n the results section. documented in this encounter Results DO NOT ORDER STANDALONE - BROAD COVID TEST (02/19/2020 16:30 EST) Analysis Performed At [facility] Time Signature COVID-19 NEGATIVE Negative 02/22/2020 BROAD rt-PCR Result 21:54 EST [facility] Comment: 2019-novel Coronavirus (2019-nCoV) not d etected by the qRT-PCR assay. Consider testing for other respiratory viruses or re-collecting for 2019-nCoV testing. Note: Optimum timing for peak viral levels du ring infections caused by 2019-nCoV have not been determined. Collection of multiple specimens from the same patient may be necessary to detect the virus. Limitations Positive results are indicative of activ e infection with SARS-CoV-2 but do not rule out bacterial infection or co-infection with other viruses. The agent detected may not be the definite cause of diseas e. In addition, detection of viral RNA m ay not indicate the presence of infectious virus or that SARS-CoV-2 is the causative agent for clinical symptoms. Negative results do not preclude SARS-Co V-2 infection and should not be used as the sole basis for patient management decisions. Negative results must be combined with clinical observations, patient his tory, and epidemiological information. F alse negative results may also occur if amplification inhibitors are present in the specimen or if inadequate numbers of organisms are present in the specimen. Op timum specimen types and timing for peak viral levels during infections caused by SARS-CoV-2 have not been fully determined. Collection of multiple specimens (types and time points) from the same patient may be necessary to detect the virus. The test was validated for use with uppe r respiratory specimens obtained via nasopharyngeal or oropharyngeal swabs in VTM, UTM, M4, M5, M6, saline, and MTM media. The performance of this test has not be en established for other specimens. Spec imens collected using other FDA recommended Specimen Collection Materials listed in the FDA COVID-19 [employer] communication (June 01, 2019) are pr ocessed with the caveat that they were n ot all validated for use with this test and the result must be interpreted in this context. Furthermore, a false negative results may occur if a specimen is improperly collected, transported or handled. If the virus mutates in the RT-PCR targe t region, SARS-CoV-2 may not be detected or may be detected less predictably. Inhibitors or other types of interferenc e may produce a false negative result. An interference study evaluating the effect of common cold medications was not performed. This test is not FDA-cleared but its per formance characteristics were established by our CLIA-certified, CAP-accredited, high complexity laboratory in accordance with CLIA regulations, College of Americ an Pathologists (CAP) guidelines (May), and FDA guidance (May 06, 2019). This test is only for use under the Food and Drug Administration's Emergency Use Authorization. Specimen Anatomical Location Collection Method Collection Time Received Time (Source) / Laterality / Volume Swab ENTIRE NASOPHARYNX 02/19/2020 16:30 02/19 / Unknown EST 16:09 EST Provider Outr Resulting Lab MICROBIOLOGY - GENERAL ORD ERABLES Performing Organization Address City/State/ZIP Code Phon e Number [facility] [place], [place] COVID-19 TESTING (02/19/2020 16:30 EST) Analysis Performed At [facility] Time Signature COVID-19 NEGATIVE Negative 02/22/2020 BROAD rt-PCR Result 23:41 EST [facility] Comment: 2019-novel Coronavirus (2019-nCoV) not d etected by the qRT-PCR assay. Consider testing for other respiratory viruses or re-collecting for 2019-nCoV testing. Note: Optimum timing for peak viral levels du ring infections caused by 2019-nCoV have not been determined. Collection of multiple specimens from the same patient may be necessary to detect the virus. Limitations Positive results are indicative of activ e infection with SARS-CoV-2 but do not rule out bacterial infection or co-infection with other viruses. The agent detected may not be the definite cause of diseas e. In addition, detection of viral RNA m ay not indicate the presence of infectious virus or that SARS-CoV-2 is the causative agent for clinical symptoms. Negative results do not preclude SARS-Co V-2 infection and should not be used as the sole basis for patient management decisions. Negative results must be combined with clinical observations, patient his tory, and epidemiological information. F alse negative results may also occur if amplification inhibitors are present in the specimen or if inadequate numbers of organisms are present in the specimen. Op timum specimen types and timing for peak viral levels during infections caused by SARS-CoV-2 have not been fully determined. Collection of multiple specimens (types and time points) from the same patient may be necessary to detect the virus. The test was validated for use with uppe r respiratory specimens obtained via nasopharyngeal or oropharyngeal swabs in VTM, UTM, M4, M5, M6, saline, and MTM media. The performance of this test has not be en established for other specimens. Spec imens collected using other FDA recommended Specimen Collection Materials listed in the FDA COVID-19 [employer] communication (June 01, 2019) are pr ocessed with the caveat that they were n ot all validated for use with this test and the result must be interpreted in this context. Furthermore, a false negative results may occur if a specimen is improperly collected, transported or handled. If the virus mutates in the RT-PCR targe t region, SARS-CoV-2 may not be detected or may be detected less predictably. Inhibitors or other types of interferenc e may produce a false negative result. An interference study evaluating the effect of common cold medications was not performed. This test is not FDA-cleared but its per formance characteristics were established by our CLIA-certified, CAP-accredited, high complexity laboratory in accordance with CLIA regulations, College of [employer] an Pathologists (CAP) guidelines (May), and FDA guidance (May 06, 2019). This test is only for use under the Food and Drug Administration's Emergency Use Authorization. Performing Lab [facility] 02/22/2020 23:4 1 EST [facility] Specimen Anatomical Collection Method Collection Time Receive d Time (Source) Location / / Volume Laterality Swab 02/19/2020 16:30 02/20/2020 EST 16:09 EST Provider Outr Resulting Lab MICROBIOLOGY - GENERAL ORD ERABLES Performing Organization Address City/State/ZIP Code Phon e Number [facility] [address] [place] [address] SERVICES [facility] [place], [place] documented in this encounter Visit Diagnoses Not on filedocumented in this encounter Care Teams Plastic Printer Relationship Specialty Start Date End Date Lolly Oliveira MD PCP - General 11/13/08 [address] [place] [address] documented as of this encounter
--- OUTSIDE RECORDS SUMMARY | 2022-01-21 09:22 | XMS_ITS | Encounter Summary ---
:1950 Author Organization [facility] [place] [address] Care Team Providers Name Role Phone Lolly Oliveira MD Primary Care Provider Encounter Details Date Type Department Care Team Description 07/17/2013 Orders Only Radiology Lolly Ocampo MD [facility] [address] [facility] [place] [address] [place] [address] [phone] Social History Tobacco Use Types Packs/Day Years [...] MAMMOGRAMS (PERFORMED ON 07/06/13 AND 07/14/13) FROM [facility] DATED 07/17/13: ?? DIAGNOSTIC IMAGING SUMMARY: ?? [...] (PE RFORMED ON 07/06/13 AND 07/14/13) FROM [facility] DATED 07/17/13: DIAGNOSTIC IMAGING SUMMARY: RIGHT BREAST [...] on filedocumented in this encounter Care Teams Screen Repairer Crusher Relationship Specialty Start Date End Date Lolly Oliveira MD PCP - General 07/17/13 [address] [place] [address] documented as of this encounter
--- OUTSIDE RECORDS SUMMARY | 2022-01-21 09:23 | XMS_ITS | Encounter Summary ---
:1950 [place] [address] Care Team Providers Name Role Phone Unavailable Primary Care Provider Unavailable Encounter Details Date Type Department Care Team Description 07/14/2013 External Results XRay at [facility] Provider, [address] [place] [phone] Social History Tobacco Use Types Packs/Day [...]
--- OUTSIDE RECORDS SUMMARY | 2022-01-21 09:23 | XMS_ITS | Encounter Summary ---
:1950 [place] [address] Care Team Providers Name Role Phone Unavailable Primary Care Provider Unavailable Encounter Details Date Type Department Care Team Description 07/14/2013 Orders Only Radiology Eleno Christian MD [facility] [place] [address] DIAGNOSTIC RADIOLOGY [phone] [place] [id number] (Wo rk) Social History Tobacco Use Types Packs/Day Years Used Date Smoking Tobacco: Never Assessed Sex Assigned at Date Recorded Not on file documented as of this encounter Plan of Treatment Not on filedocumented as of this encounter Visit Diagnoses Not on filedocumented in this encounter
--- OUTSIDE RECORDS SUMMARY | 2022-01-21 09:23 | XMS_ITS | Encounter Summary ---
:1950 [place] [address] Care Team Providers Name Role Phone Lolly Oliveira MD Primary Care Provider Encounter Details Date Type Department Care Team Description 06/29/2011 Orders Only Radiology Eleno Christian MD [facility] [place] [address] DIAGNOSTIC RADIOLOGY [phone] [place] [id number] (Wo rk) Social History Tobacco Use Types [...] on filedocumented in this encounter Care Teams Child Care Director Relationship Specialty Start Date End Date Lolly Oliveira MD PCP - General 07/17/13 [address] [place] [address] documented as of this encounter
--- OUTSIDE RECORDS SUMMARY | 2022-01-21 09:23 | XMS_ITS | Encounter Summary ---
:1950 [place] [address] Care Team Providers Name Role Phone Unavailable Primary Care Provider Unavailable Encounter Details Date Type Department Care Team Description 07/04/2012 Orders Only Radiology Eleno Christian MD [facility] [place] [address] DIAGNOSTIC RADIOLOGY [phone] [place] [id number] (Wo rk) Social History Tobacco Use Types Packs/Day Years Used Date Smoking Tobacco: Never Assessed Sex Assigned at Date Recorded Not on file documented as of this encounter Plan of Treatment Not on filedocumented as of this encounter Procedures Procedure Name Priority Date/Time Associated Diagnosis Comme nts FILM LIBRARY Routine 07/04/2012 4:15 PM Results f or this STORAGE ONLY MAMMO EDT procedure are in the results section. documented in this encounter Results Film Library- Storage only Mammo (07/04/2012 4:15 PM EDT) Anatomical Region Laterality Modality Other Specimen (Source) Anatomical Collection Method Collection Time Re ceived Time Location / / Volume Laterality 07/04/2012 4:15 PM EDT Narrative 07/14/2013 4:30 PM EDT This is a Non-reportable exam Procedure Note 07/14/2013 This is a Non-reportable exam Eleno Christian MD [facility] FILM LIBRARY ORDERABLES documented in this encounter Visit Diagnoses Not on filedocumented in this encounter
--- OUTSIDE RECORDS SUMMARY | 2022-01-23 13:13 | XMS_ITS | Clinical Summary ---
:1950 Author Organization [facility] Address [address] [place] [address] Care Team Providers Name Role Phone Lolly [...] / Group Dates BCBS [place]BS [place] BLUE [id number] 2021-Pres [phone] Medicare MEDICARE ADVANTAGE ent [id number] [place] [address] Care Teams Shield Cleaner Relationship Specialty Start Date End Date Lolly Oliveira MD PCP - General 11/13/08 [address] [place] [address]
--- OUTSIDE RECORDS SUMMARY | 2022-01-23 13:14 | XMS_ITS | Encounter Summary ---
:1950 Author Organization [facility] [place] [address] Care Team Providers Name Role Phone Lolly Oliveira MD Primary Care Provider Encounter Details Date Type Department Care Team Description 07/18/2013 Orders Only Radiology Alia Fraire, Mammographic [facility] microcalcification ([address] [facility]) [facility] [id number] DIAGNOSTIC [phone] [place] [address] Social History Tobacco Use Types Packs/Day Years [...] are present on specimen digital X-ray. A HubCastrk Eviva-Stereo 13 Cylinder marker clip was placed. [...] are present on specimen digital X-ray. A [employer] Eviva-Stereo 13 Cylinder marker clip was placed. [...] does not layer and, therefore, are not care support representative of milk of calcium. Again [...] does not layer and, therefore, are not care support representative of milk of calcium. Again , these have an amorphous and punctate appearance and remain indeterminate. Malcolm reotactic guided biopsy is recommended. Alia Fraire MD IMG MAMMO ORDERABLES documented in this encounter Visit Diagnoses Diagnosis Mammographic microcalcification - Primar y Mammographic microcalcification Mammographic microcalcification Mammographic microcalcification Mammographic microcalcification documented in this encounter Care Teams Temperature Regulator Pyrometer Relationship Specialty Start Date End Date Lolly Oliveira MD PCP - General 07/17/13 [address] [place] [address] documented as of this encounter
--- OUTSIDE RECORDS SUMMARY | 2022-01-23 13:14 | XMS_ITS | Encounter Summary ---
:1950 Author Organization [facility] [place] [address] Care Team Providers Name Role Phone Unavailable Primary Care Provider Unavailable Encounter Details Date Type Department Care Team Description 07/14/2013 External Results XRay at [facility] Provider, [address] [place]ES[place] Rocha [phone] Social History Tobacco Use Types Packs/Day [...]
--- OUTSIDE RECORDS SUMMARY | 2022-01-23 13:14 | XMS_ITS | Encounter Summary ---
:1950 Author Organization [facility] [place] [address] Care Team Providers Name Role Phone Lolly Oliveira MD Primary Care Provider Encounter Details Date Type Department Care Team Description 07/26/2013 Orders Only Radiology Eleno Christian MD [facility] [place] [address] DIAGNOSTIC RADIOLOGY [phone] [place] [id number] (Wo rk) Social History Tobacco Use Types [...] on filedocumented in this encounter Care Teams Fund Manager Relationship Specialty Start Date End Date Lolly Oliveira MD PCP - General 07/17/13 [address] [place] [address] documented as of this encounter
--- OUTSIDE RECORDS SUMMARY | 2022-01-23 13:14 | XMS_ITS | Encounter Summary ---
:1950 Author Organization [facility] [place] [address] Care Team Providers Name Role Phone Lolly Oliveira MD Primary Care Provider Encounter Details Date Type Department Care Team Description 04/01/2021 Office Visit Dermatology at [facility], [place] MD [address] [facility] Malcolm B DERMATOLOGY [place], [place] [phone] Social History Tobacco Use Types Packs/Day Years [...] psoriasis documented in this encounter Care Teams Radiology Practitioner Assistant Relationship Specialty Start Date End Date Lolly Oliveira MD PCP - General 07/17/13 [address] [place] [address] documented as of this encounter
--- OUTSIDE RECORDS SUMMARY | 2022-01-23 13:14 | XMS_ITS | Encounter Summary ---
:1950 Author Organization [facility] Address [address] [place] [address] Care Team Providers Name Role Phone Lolly Oliveira MD Primary Care Provider Encounter Details Date Type Department Care Team Description 03/06/2003 Results Only [facility] - Lolly Mendoza MD conversion 201 [facility] [address] [place], [place] [address] [place] [address] [phone] Social History Tobacco Use Types Packs/Day Years [...] Component Value Ref Test Analysis Performed At [facility] Method Time Signature Pathology CYTOPATHOLOGY [...] Organization Address City/State/ZIP Code Phon e Number [facility] [address] [place] [address] SERVICES [facility] [address] [place] [address] documented in this encounter Visit Diagnoses Not on filedocumented in this encounter Care Teams Legislative Assistant Relationship Specialty Start Date End Date Lolly Oliveira MD PCP - General 11/13/08 [address] [place] [address] documented as of this encounter
--- OUTSIDE RECORDS SUMMARY | 2022-01-23 13:14 | XMS_ITS | Encounter Summary ---
:1950 Author Organization [facility] [place] [address] Care Team Providers Name Role Phone Lolly Oliveira MD Primary Care Provider Encounter Details Date Type Department Care Team Description 10/09/2021 Telephone Dermatology at [facility] Nora Meredith LPN [address] [place] [address] Social History Tobacco Use [...] on filedocumented in this encounter Care Teams Petroleum Refinery Worker Relationship Specialty Start Date End Date Lolly Oliveira MD PCP - General 07/17/13 [address] [place] [address] documented as of this encounter
--- OUTSIDE RECORDS SUMMARY | 2022-01-23 13:14 | XMS_ITS | Encounter Summary ---
:1950 Author Organization [facility] [place] [address] Care Team Providers Name Role Phone Lolly Oliveira MD Primary Care Provider Encounter Details Date Type Department Care Team Description 07/26/2013 Hospital Mammography at [facility], [address] COX Mammographic Encounter [facility] Lolly Oliveira MD [address] [place] [address] [place] [address] Social History Tobacco Use Types [...] Organization Address City/State/[place] [address] LEX BURRISPythian documented in this encounter Visit Diagnoses Diagnosis [...] Routine documented in this encounter Care Teams Garment Inspector Relationship Specialty Start Date End Date Lolly Oliveira MD PCP - General 07/17/13 [address] [place] [address] documented as of this encounter
--- OUTSIDE RECORDS SUMMARY | 2022-01-23 13:14 | XMS_ITS | Encounter Summary ---
:1950 Author Organization [facility] Address [address] [place] [address] Care Team Providers Name Role Phone Lolly Oliveira MD Primary Care Provider Encounter Details Date Type Department Care Team Description 04/25/2009 Orders Only [facility] Janice Oliveira MD Laboratory Services - [facility] [address] [place] [address] [address] [facility] [place] [address] [phone] Social History Tobacco Use Types Packs/Day Years Used Date Smoking Tobacco: Never Assessed Sex Assigned at Date Recorded Not on file documented as of this encounter Plan of Treatment Not on filedocumented as of this encounter Procedures Procedure Name Priority Date/Time Associated Diagnosis Comme [facility] CYTOPATHOLOGY Routine 04/25/2009 0:00 EST Results for this procedure are i n the results section . documented in this encounter Results CYTOPATHOLOGY (04/25/2009 0:00 EST) Component Value Ref Test Analysis Performed At [facility] Pathology CYTOPATHOLOGY REPORT ? TOVA Report: ? [facility] Reports generated via electr onic interface contain original data; ? however they are lacking the format of the original report. ? Caution should be taken when reading/interpreting unformatted reports. ? Name: ? JING MOTT ? Accession #: ? [id number] ? : ? 1950 (Age: 58) ??F [...] Organization Address City/State/ZIP Code Phon e Number [facility] [address] [place] [address] SERVICES [facility] [address] [place] [address] documented in this encounter Visit Diagnoses Not on filedocumented in this encounter Care Teams Biochemistry Professor Relationship Specialty Start Date End Date Lolly Oliveira MD PCP - General 11/13/[address] [place] [address] documented as of this encounter
--- OUTSIDE RECORDS SUMMARY | 2022-01-23 13:14 | XMS_ITS | Encounter Summary ---
:1950 Author Organization [facility] Address [address] [place] [address] Care Team Providers Name Role Phone Lolly Oliveira MD Primary Care Provider Encounter Details Date Type Department Care Team Description 04/17/2005 Results Only [facility] - Lolly Mendoza MD conversion 201 [facility] [address] [place], [place] [address] [place] [address] [phone] Social History Tobacco Use Types Packs/Day Years [...] Component Value Ref Test Analysis Performed At [facility] Method Time Signature Pathology CYTOPATHOLOGY REPORT [facility] Report: [facility] Reports generated via electronic interface contain [...] ? ThinPrep Pap Test, Cervix/Endocervix, processed on Intelligent Data Sensor DevicesPrep Imaging System, with manual evaluation Last Menstrual [...] Organization Address City/State/ZIP Code Phon e Number [facility] [address] [place] [address] SERVICES [facility] [address] [place] [address] documented in this encounter Visit Diagnoses Not on filedocumented in this encounter Care Teams Aerial Tram Operator Relationship Specialty Start Date End Date Lolly Oliveira MD PCP - General 11/13/08 [address] [place] [address] documented as of this encounter
--- OUTSIDE RECORDS SUMMARY | 2022-01-23 13:14 | XMS_ITS | Encounter Summary ---
:1950 Author Organization [facility] Address [address] [place] [address] Care Team Providers Name Role Phone Lolly Oliveira MD Primary Care Provider Encounter Details Date Type Department Care Team Description 06/16/2012 Results Only [facility] Janice Oliveira MD Laboratory Services - [place] [address] [place] [address] [address] [facility] [place] [address] [phone] Social History Tobacco Use Types Packs/Day Years [...] Component Value Ref Test Analysis Performed At [facility] Method Time Signature Pathology CYTOPATHOLOGY [...] Organization Address City/State/ZIP Code Phon e Number [facility] [address] [place] [address] [facility] [address] [place] [address] documented in this encounter Visit Diagnoses Not on filedocumented in this encounter Care Teams Separating Machine Operator Relationship Specialty Start Date End Date Lolly Oliveira MD PCP - General 11/13/08 [address] [place] [address] documented as of this encounter
--- OUTSIDE RECORDS SUMMARY | 2022-01-23 13:14 | XMS_ITS | Encounter Summary ---
:1950 Author Organization [facility] Address [address] [place] [address] Care Team Providers Name Role Phone Unavailable Primary Care Provider Unavailable Encounter Details Date Type Department Care Team Description 11/07/2008 Orders Only [facility] Kenneth Krishnan MD Laboratory Services - [address] [place] [address] [place] [address] [phone] Social History Tobacco Use Types Packs/Day Years Used Date Smoking Tobacco: Never Assessed Sex Assigned at Date Recorded Not on file documented as of this encounter Plan of Treatment Not on filedocumented as of this encounter Procedures Procedure Name Priority Date/Time Associated Diagnosis Comme [facility] SURGICAL PATHOLOGY Routine 11/07/2008 0:00 EDT Re sults for this procedure are i n the results section. documented in this encounter Results SURGICAL PATHOLOGY (11/07/2008 0:00 EDT) Component Value Ref Test Analysis Performed At [facility] Method Time Signature Pathology SURGICAL PATHOLOGY REPORT ? J LUIS HER Report: Reports generated via electr Go Try It On interface contain original data; ? [facility] however they are lacking the format of the original report. ? Caution should be taken when reading/interpreting unformatted reports. ? Name: ? LYLE, JING ? Accession #: ? [id number] ? : ? 1950 (Age: 58) ??F [...] Organization Address City/State/ZIP Code Phon e Number [facility] [address] [place] [address] SERVICES [facility] [address] [place] [address] documented in this encounter Visit Diagnoses Not on filedocumented in this encounter
--- OUTSIDE RECORDS SUMMARY | 2022-01-23 13:14 | XMS_ITS | Encounter Summary ---
:[address] [facility] Address [address] [place] [address] Care Team Providers Name Role Phone Lolly Oliveira MD Primary Care Provider Encounter Details Date Type Department Care Team Description 11/13/2020 Lab Requisition [facility] Outr Resulting Lab, Pathology & Laboratory Provider [facility] [address] [place] [address] Social History Tobacco Use Types Packs/Day Years Used Date Smoking Tobacco: Never Assessed Sex Assigned at Date Recorded Not on file documented as of this encounter Plan of Treatment Not on filedocumented as of this encounter Procedures Procedure Name Priority Date/Time Associated Diagnosis Comme nts COVID-19 TEST [facility] Today 11/13/2020 7:30 EDT LAB PCR COVID-19 TESTING Routine 11/13/2020 7:30 EDT Resu lts for this procedure are i n the results section. documented in this encounter Results COVID-19 TEST [facility] LAB PCR (11/13/2020 7:30 EDT) Specimen Anatomical Location Collection Method Collection Time Received Time (Source) / Laterality / Volume Swab ENTIRE NASOPHARYNX 11/13/2020 7:30 2020 / Unknown EDT 20:57 EDT Provider Outr Resulting Lab MICROBIOLOGY - GENERAL ORD ERABLES Performing Organization Address City/State/ZIP Code Phon e Number [facility] [address] [place] [address] SERVICES COVID-19 TESTING (11/13/2020 7:30 EDT) Analysis Performed At Patho logist Time Signature COVID-19 Negative Negative 11/14/2020 [facility] MEDICAL rt-PCR Result 11:46 EDT CENTER LABORATORY [...] using the med SA RS-CoV-2 assay ([employer] on the Med 6800 System Performing Lab Med 6800 [facility] 11/14/2020 11:[address] [facility] LABORATORY SERVICES Specimen Anatomical Collection Method Collection Time Receive d Time (Source) Location / / Volume Laterality Swab 11/13/2020 7:30 11/13/2020 EDT 20:57 EDT Provider Outr Resulting Lab MICROBIOLOGY - GENERAL ORD ERABLES Performing Organization Address City/State/ZIP Code Phon e Number [facility] [address] [place] [address] SERVICES documented in this encounter Visit Diagnoses Not on filedocumented in this encounter Care Teams Industrial Engineering Technician Relationship Specialty Start Date End Date Lolly Oliveira MD PCP - General 11/13/08 [address] [place], [place] [address] documented as of this encounter
--- OUTSIDE RECORDS SUMMARY | 2022-01-23 13:14 | XMS_ITS | Encounter Summary ---
:1950 Author Organization [facility] Address [address] [place] [address] Care Team Providers Name Role Phone Lolly Oliveira MD Primary Care Provider Encounter Details Date Type Department Care Team Description 04/01/2005 Results Only [facility] - Blair Comer MD conversion [address] [place] [id number] [place] [address] [phone] Social History Tobacco Use Types Packs/Day Years Used Date Smoking Tobacco: Never Assessed Sex Assigned at Date Recorded Not on file documented as of this encounter Plan of Treatment Not on filedocumented as of this encounter Procedures Procedure Name Priority Date/Time Associated Diagnosis Comme [facility] SURGICAL PATHOLOGY Routine 04/01/2005 0:00 EST Re sults for this procedure are i n the results section. documented in this encounter Results SURGICAL PATHOLOGY (04/01/2005 0:00 EST) Component Value Ref Test Analysis Performed At [facility] Method Time Signature Pathology SURGICAL PATHOLOGY REPORT FRANSISCO BORGES Report: Reports generated via electronic interface contain origina l data; [facility] however they are lacking the format of the original report. Caution should be taken when reading/interpreting unformatte d reports. Name: ? JING MOTT ? Accession #: ? [id number] ? : ? 1950 (Age: 54) ??F [...] tissue, submitted intact as ( B). ??(Dr. Lechuga)/[facility] End of Report Specimen (Source) Anatomical Collection Method Collection Time Re ceived Time Location / / Volume Laterality 04/01/2005 04/02/2005 15:2 4 EST Blair Dukes MD PATHOLOGY ORDERABLES Performing Organization Address City/State/ZIP Code Phon e Number [facility] [address] [place] [address] SERVICES [facility] [address] [place] [address] documented in this encounter Visit Diagnoses Not on filedocumented in this encounter Care Teams Waterproof Coating Machine Tender Relationship Specialty Start Date End Date Lolly Oliveira MD PCP - General 11/13/08 [address] [place] [address] documented as of this encounter
--- OUTSIDE RECORDS SUMMARY | 2022-01-23 13:14 | XMS_ITS | Encounter Summary ---
:1950 Author Organization [facility] [place] [address] Care Team Providers Name Role Phone Lolly Oliveira MD Primary Care Provider Encounter Details Date Type Department Care Team Description 07/26/2013 Hospital Encounter Mammography at [facility] Mammographic [facility] [place] [phone] Social History Tobacco Use Types Packs/Day Years [...] microcalcification documented in this encounter Care Teams Chief Hospital Administrator Relationship Specialty Start Date End Date Lolly Oliveira MD PCP - General 07/17/13 [address] [place] [address] documented as of this encounter
--- OUTSIDE RECORDS SUMMARY | 2022-01-23 13:14 | XMS_ITS | Encounter Summary ---
:1950 Author Organization [facility] Address [address] [place] [address] Care Team Providers Name Role Phone Lolly Oliveira MD Primary Care Provider Encounter Details Date Type Department Care Team Description 02/11/2021 Lab Requisition [facility] Outr Resulting Lab, Pathology & Laboratory Provider [facility] [address] [place] [address] Social History Tobacco Use Types Packs/Day [...] City/State/ZIP Code Phon e Number [facility] [address] [place] [address] SERVICES COVID-19 TESTING (02/11/2021 8:00 EST) [facility] Time Signature COVID-19 Negative Negative 02/12/2021 [facility] MEDICAL rt-PCR Result 14:17 EST CENTER LABORATORY [...] using the med SA RS-CoV-2 assay (Stephanie [employer] on the Med 6800 System Performing Lab Med 6800 [facility] 02/12/2021 14:17 E [facility] Lab LABORATORY SERVICES Specimen Anatomical Collection Method Collection Time Receive d Time (Source) Location / / Volume Laterality Swab 02/11/2021 8:00 02/11/2021 EST 22:22 EST Provider Outr Resulting Lab MICROBIOLOGY - GENERAL ORD ERABLES Performing Organization Address City/State/ZIP Code Phon e Number [facility] [address] [place] [address] SERVICES documented in this encounter Visit Diagnoses Not on filedocumented in this encounter Care Teams Curtain Stretcher Relationship Specialty Start Date End Date Lolly Oliveira MD PCP - General 11/13/[address], [place] [address] documented as of this encounter
--- OUTSIDE RECORDS SUMMARY | 2022-01-23 13:14 | XMS_ITS | Encounter Summary ---
:1950 Author Organization [facility] Address [address] [place] [address] Care Team Providers Name Role Phone Lolly Oliveira MD Primary Care Provider Encounter Details Date Type Department Care Team Description 05/29/2002 Results Only [facility] - Lyric Quinn od, Silvia Blandon, MEDICAL STENOGRAPHER conversion 1315 [facility] [address] [place] [phone] (Wo rk) Social History Tobacco Use Types [...] Component Value Ref Test Analysis Performed At [facility] Method Time [facility] Pathology CYTOPATHOLOGY REPORT TOVA Report: [facility] [...] Receive Date: ? 05/31/2002 Provider: ?SILVIA DIEHL MEDICAL STENOGRAPHER Copy to: ? Specimen/Source: ?ThinPrep Pap Test, [...] / Laterality Volume 05/29/2002 05/31/2002 Silvia Diehl MEDICAL STENOGRAPHER PATHOLOGY ORDERABLES Performing Organization Address City/State/ZIP Code Phon e Number [facility] [address] [place] [address] SERVICES [facility] [address] [place] [address] documented in this encounter Visit Diagnoses Not on filedocumented in this encounter Care Teams Vocational Rehabilitation Specialist Relationship Specialty Start Date End Date Lolly Oliveira MD PCP - General 11/13/08 [address] [place] [address] documented as of this encounter
--- OUTSIDE RECORDS SUMMARY | 2022-01-23 13:14 | XMS_ITS | Encounter Summary ---
:1950 Author Organization [facility] [place] [address] Care Team Providers Name Role Phone oLlly Oliveira MD Primary Care Provider Encounter Details Date Type Department Care Team Description 07/17/2013 Hospital Encounter XRay at [facility], [address] [place] [address] [place] [address] Social History Tobacco Use Types Packs/Day Years Used Date Smoking Tobacco: Never Assessed Sex Assigned at Date Recorded Not on file documented as of this encounter Consult Notes Provider, Hollie - 07/17/2013 7:56 AM EDT documented in this encounter Plan of Treatment Not on filedocumented as of this encounter Visit Diagnoses Not on filedocumented in this encounter Care Teams Control Officer Manager Relationship Specialty Start Date End Date Lolly Oliveira MD PCP - General 07/17/13 [address] [place] [address] documented as of this encounter
--- OUTSIDE RECORDS SUMMARY | 2022-01-23 13:14 | XMS_ITS | Encounter Summary ---
:1950 Author Organization [facility] Address [address] [place] [address] Care Team Providers Name Role Phone Lolly Oliveira MD Primary Care Provider Encounter Details Date Type Department Care Team Description 04/12/2007 Results Only [facility] - Lolly Mendoza MD conversion 201 [facility] [address] [place], [place] [address] [place] [address] [phone] Social History Tobacco Use Types Packs/Day Years [...] Component Value Ref Test Analysis Performed At [facility] Method Time Signature Pathology CYTOPATHOLOGY [...] ? ThinPrep Pap Test, Cervix/Endocervix, processed on [employer] ThinPrep Imaging System, with manual evaluation Last [...] and electronically signed by: ? Anahy Kelly, [facility](ASCP) ? Report Date: ??04/18/2007 12:31 End of Report Specimen (Source) Anatomical Location Collection Method / Collectio n Time Received Time / Laterality Volume 04/12/2007 04/13/2007 Lolly Oliveira MD PATHOLOGY ORDERABLES Performing Organization Address City/State/ZIP Code Phon e Number [facility] [address] [place] [address] SERVICES [facility] [address] [place] [address] documented in this encounter Visit Diagnoses Not on filedocumented in this encounter Care Teams Credentialer Relationship Specialty Start Date End Date Lolly Oliveira MD PCP - General 11/13/08 [address] [place], [place] [address] documented as of this encounter
--- OUTSIDE RECORDS SUMMARY | 2022-01-23 13:14 | XMS_ITS | Encounter Summary ---
:1950 Author Organization [facility] Address [address] [place] [address] Care Team Providers Name Role Phone Lolly Oliveira MD Primary Care Provider Encounter Details Date Type Department Care Team Description 02/20/2020 Lab Requisition [facility] Outr Resulting Lab, Pathology & Laboratory Provider [facility] [address] [place] [address] Social History Tobacco Use Types [...] TEST (02/19/2020 16:30 EST) Analysis Performed At [facility] Time Signature COVID-19 NEGATIVE Negative 02/22/2020 [...] Organization Address City/State/ZIP Code Phon e Number [facility] [place], [place] COVID-19 TESTING (02/19/2020 16:30 EST) Analysis Performed At [facility] Time Signature COVID-19 NEGATIVE Negative 02/22/2020 [...] Administration's Emergency Use Authorization. Performing Lab [facility] 02/22/2020 23:4 1 EST [facility] SERVICES Specimen Anatomical Collection Method Collection Time Receive d Time (Source) Location / / Volume Laterality Swab 02/19/2020 16:30 02/20/2020 EST 16:09 EST Provider Outr Resulting Lab MICROBIOLOGY - GENERAL ORD ERABLES Performing Organization Address City/State/ZIP Code Phon e Number [facility] [address] [place] [address] SERVICES [facility] [place], [place] documented in this encounter Visit Diagnoses Not on filedocumented in this encounter Care Teams Sales Representative Door To Door Relationship Specialty Start Date End Date Lolly Oliveira MD PCP - General 11/13/08 [address] [place] [address] documented as of this encounter
--- OUTSIDE RECORDS SUMMARY | 2022-01-23 13:14 | XMS_ITS | Encounter Summary ---
:1950 Author Organization [facility] [place] [address] Care Team Providers Name Role Phone Unavailable Primary Care Provider Unavailable Encounter Details Date Type Department Care Team Description 07/04/2012 Orders Only Radiology Eleno Christian MD [facility] [place] [address] DIAGNOSTIC RADIOLOGY [phone] [place], [place] [address] (Wo rk) Social History Tobacco [...] is a Non-reportable exam Eleno Christian MD [facility] ORDERABLES documented in this encounter Visit Diagnoses Not on filedocumented in this encounter
--- OUTSIDE RECORDS SUMMARY | 2022-01-23 13:14 | XMS_ITS | Encounter Summary ---
:1950 Author Organization [facility] [place] [address] Care Team Providers Name Role Phone Lolly Oliveira MD Primary Care Provider Encounter Details Date Type Department Care Team Description 07/17/2013 Orders Only Radiology Lolly Ocampo MD [facility] [address] [facility] [place] [address] [place] [address] [phone] Social History Tobacco Use Types Packs/Day Years [...] MAMMOGRAMS (PERFORMED ON 07/06/13 AND 07/14/13) FROM [facility] DATED 07/17/13: ?? DIAGNOSTIC IMAGING SUMMARY: ?? [...] (PE RFORMED ON 07/06/13 AND 07/14/13) FROM [facility] DATED 07/17/13: DIAGNOSTIC IMAGING SUMMARY: RIGHT BREAST [...] on filedocumented in this encounter Care Teams Handle Attacher Relationship Specialty Start Date End Date Lolly Oliveira MD PCP - General 07/17/13 [address] [place] [address] documented as of this encounter
--- OUTSIDE RECORDS SUMMARY | 2022-01-23 13:14 | XMS_ITS | Encounter Summary ---
:1950 Author Organization [facility] [place] [address] Care Team Providers Name Role Phone Lolly Oliveira MD Primary Care Provider Encounter Details Date Type Department Care Team Description 01/14/2022 Telephone Dermatology at [facility] Nora Meredith LPN [address] [place] [address] Social History Tobacco Use [...] return to phototherapy. New order sent to [facility]. Reviewed with patient Dr. Mar recommendation. She agrees with plan of care. Advised patient order will be sent to [facility]. She voiced understanding. documented in this encounter Plan of Treatment Not on filedocumented as of this encounter Visit Diagnoses Not on filedocumented in this encounter Care Teams Barber Relationship Specialty Start Date End Date Lolly Oliveira MD PCP - General 07/17/13 [address] [place] [address] documented as of this encounter
--- OUTSIDE RECORDS SUMMARY | 2022-01-23 13:14 | XMS_ITS | Encounter Summary ---
:1950 [place] [address] Care Team Providers Name Role Phone Lolly Oliveira MD Primary Care Provider Encounter Details Date Type Department Care Team Description 07/26/2013 Hospital Encounter Mammography at [facility] Mammographic [facility] [place] [id number] Social History Tobacco Use Types Packs/Day Years [...] Analysis Performed At [facility] Method Time Signature Surgical CERNER Pathology ? [facility] Report ? Provider: ?? ELENO CHRISTIAN ?? Pt. Name: ?? JING MOTT ? Acc #: ?[id number] ?Pt. MRN: ?[id number] ? Col Date: ?? 4 ? /Sex: [...] Partially fragmented, fibrofatty needle core biopsies. ? [facility] ? Provider: ?? ELENO CHRISTIAN ?? Pt. Name: ?? JING MOTT ? Acc #: ?[id number] ?Pt. MRN: ?[id number] ? Col Date: ?? 4 ? /Sex: [...] Organization Address City/State/[place] [address] [facility] Mammo Specimen Imaging During Biopsy (07/26/2013 11:58 [...] are present on specimen digital X-ray. A Xierkang Eviva-Stereo 13 Cylinder marker clip was placed. [...] are present on specimen digital X-ray. A Accelaloxrk Eviva-Stereo 13 Cylinder marker clip was placed. [...] microcalcification documented in this encounter Care Teams Research Microbiologist Relationship Specialty Start Date End Date Lolly Oliveira MD PCP - General 07/17/13 [address] [place] [address] documented as of this encounter
--- OUTSIDE RECORDS SUMMARY | 2022-01-23 13:14 | XMS_ITS | Encounter Summary ---
:1950 Author Organization [facility] [place] [address] Care Team Providers Name Role Phone Lolly Oliveira MD Primary Care Provider Reason for Visit Reason Comments Skin Check Encounter Details Date Type Department Care Team Description 11/23/2014 Office Visit Dermatology at Clay Ramírez MD Dermatofibroma; [place] [address] [place]; [address] Malcolm [place]ERMAT[place] [address] [place], [place] [phone] (Wo rk) [phone] Social History Tobacco Use Types Packs/Day Years [...] dyschromia documented in this encounter Care Teams Cook Apprentice Relationship Specialty Start Date End Date Lolly Oilveira MD PCP - General 07/17/13 [address] [place] [address] documented as of this encounter
--- OUTSIDE RECORDS SUMMARY | 2022-01-23 13:14 | XMS_ITS | Encounter Summary ---
:1950 Author Organization [facility] [place] [address] Care Team Providers Name Role Phone Lolly Oliveira MD Primary Care Provider Encounter Details Date Type Department Care Team Description 07/20/2013 Hospital Mammography at [facility], DR [address] Mammographic Encounter [facility] Lolly Oliveira MD [address] [place] [address] [place] [address] Social History Tobacco Use Types [...] does not layer and, therefore, are not software support representative of milk of calcium. Again [...] does not layer and, therefore, are not software support representative of milk of calcium. Again , these have an amorphous and punctate appearance and remain indeterminate. Malcolm reotactic guided biopsy is recommended. Alia Fraire MD IMG MAMMO ORDERABLES documented in this encounter Visit Diagnoses Diagnosis Mammographic microcalcification documented in this encounter Care Teams Mortgage Loan Assistant Relationship Specialty Start Date End Date Lolly Oliveira MD PCP - General 07/17/13 [address] [place] [address] documented as of this encounter
--- OUTSIDE RECORDS SUMMARY | 2022-01-23 13:14 | XMS_ITS | Encounter Summary ---
:1950 Author Organization [facility] [place] [address] Care Team Providers Name Role Phone Lolly Oliveira MD Primary Care Provider Encounter Details Date Type Department Care Team Description 06/29/2011 Orders Only Radiology Eleno Christian MD [facility] [place] [address] DIAGNOSTIC RADIOLOGY [phone] [place] [id number] (Wo rk) Social History Tobacco Use Types [...] on filedocumented in this encounter Care Teams Spooler Operator Relationship Specialty Start Date End Date Lolly Oliveira MD PCP - General 07/17/13 [address] [place] [address] documented as of this encounter
--- OUTSIDE RECORDS SUMMARY | 2022-01-26 13:54 | XMS_ITS | Encounter Summary ---
:1950 Author Organization [facility] Address [address] [place] [address] Care Team Providers Name Role Phone Lolly Oliveira MD Primary Care Provider Encounter Details Date Type Department Care Team Description 04/01/2005 Results Only [facility] - Blair Comer MD conversion [address] [place] [id number] [place] [address] [phone] Social History Tobacco Use Types Packs/Day Years Used Date Smoking Tobacco: Never Assessed Sex Assigned at Date Recorded Not on file documented as of this encounter Plan of Treatment Not on filedocumented as of this encounter Procedures Procedure Name Priority Date/Time Associated Diagnosis Comme [facility] SURGICAL PATHOLOGY Routine 04/01/2005 0:00 EST Re sults for this procedure are i n the results section. documented in this encounter Results SURGICAL PATHOLOGY (04/01/2005 0:00 EST) Component Value Ref Test Analysis Performed At [facility] Method Time Signature Pathology SURGICAL PATHOLOGY REPORT FRANSISCO BORGES Report: Reports generated via electronic interface contain origina l data; LIBBY BLANCO however they are lacking the format of the original report. Caution should be taken when reading/interpreting unformatte d reports. Name: ? JING MOTT ? Accession #: ? [id number] ? : ? 1950 (Age: 54) ??F [...] tissue, submitted intact as ( B). ??(Dr. Lechuga)/[facility] End of Report Specimen (Source) Anatomical Collection Method Collection Time Re ceived Time Location / / Volume Laterality 04/01/2005 04/02/2005 15:2 4 EST Blair Dukes MD PATHOLOGY ORDERABLES Performing Organization Address City/State/ZIP Code Phon e Number [facility] [address] [place] [address] SERVICES [facility] [address] [place] [address] documented in this encounter Visit Diagnoses Not on filedocumented in this encounter Care Teams Litigation Claim Representative Relationship Specialty Start Date End Date Lolly Oliveira MD PCP - General 11/13/08 [address] [place] [address] documented as of this encounter
--- OUTSIDE RECORDS SUMMARY | 2022-01-26 13:54 | XMS_ITS | Encounter Summary ---
:1950 Author Organization [facility] Address [address] [place] [address] Care Team Providers Name Role Phone Lolly Oliveira MD Primary Care Provider Encounter Details Date Type Department Care Team Description 02/11/2021 Lab Requisition [facility] Outr Resulting Lab, Pathology & Laboratory Provider [facility] [address] [place] [address] Social History Tobacco Use Types Packs/Day [...] City/State/ZIP Code Phon e Number [facility] [address] [place] [address] SERVICES COVID-19 TESTING (02/11/2021 8:00 EST) [facility] Time Signature COVID-19 Negative Negative 02/12/2021 [facility] MEDICAL rt-PCR Result 14:17 EST [...] using the med SA RS-CoV-2 assay (Stephanie [employer] on the Med 6800 System Performing Lab Med 6800 [facility] 02/12/2021 14:17 E [facility] Lab LABORATORY SERVICES Specimen Anatomical Collection Method Collection Time Receive d Time (Source) Location / / Volume Laterality Swab 02/11/2021 8:00 02/11/2021 EST 22:22 EST Provider Outr Resulting Lab MICROBIOLOGY - GENERAL ORD ERABLES Performing Organization Address City/State/ZIP Code Phon e Number [facility] [address] [place] [address] SERVICES documented in this encounter Visit Diagnoses Not on filedocumented in this encounter Care Teams Associate Pastor Relationship Specialty Start Date End Date Lolly Oliveira MD PCP - General 11/13/08 [address] [place], [place] [address] documented as of this encounter
--- OUTSIDE RECORDS SUMMARY | 2022-01-26 13:54 | XMS_ITS | Encounter Summary ---
:1950 Author Organization [facility] Address [address] [place] [address] Care Team Providers Name Role Phone Lolly Oliveira MD Primary Care Provider Encounter Details Date Type Department Care Team Description 04/17/2005 Results Only [facility] - Lolly Mendoza MD conversion 201 [facility] [address] [place], [place] [address] [place] [address] [phone] Social History Tobacco Use Types Packs/Day Years [...] Component Value Ref Test Analysis Performed At [facility] Method Time Signature Pathology CYTOPATHOLOGY [...] ? ThinPrep Pap Test, Cervix/Endocervix, processed on LaunchBitPrep Imaging System, with manual evaluation Last Menstrual [...] Organization Address City/State/ZIP Code Phon e Number [facility] [address] [place] [address] SERVICES [facility] [address] [place] [address] documented in this encounter Visit Diagnoses Not on filedocumented in this encounter Care Teams Waiter/Waitress Relationship Specialty Start Date End Date Lolly Oliveira MD PCP - General 11/13/08 [address] [place] [address] documented as of this encounter
--- OUTSIDE RECORDS SUMMARY | 2022-01-26 13:54 | XMS_ITS | Encounter Summary ---
:1950 Author Organization [facility] Address [address] [place] [address] Care Team Providers Name Role Phone Lolly Oliveira MD Primary Care Provider Encounter Details Date Type Department Care Team Description 02/20/2020 Lab Requisition [facility] Outr Resulting Lab, Pathology & Laboratory Provider General acute hospital [address] [place] [address] Social History Tobacco Use Types [...] TEST (02/19/2020 16:30 EST) Analysis Performed At [facility] Time Signature COVID-19 NEGATIVE Negative 02/22/2020 [...] Organization Address City/State/ZIP Code Phon e Number [facility] [place], [place] COVID-19 TESTING (02/19/2020 16:30 EST) Analysis Performed At [facility] Time Signature COVID-19 NEGATIVE Negative 02/22/2020 [...] Administration's Emergency Use Authorization. Performing Lab [facility] 02/22/2020 23:4 1 EST [facility] SERVICES Specimen Anatomical Collection Method Collection Time Receive d Time (Source) Location / / Volume Laterality Swab 02/19/2020 16:30 02/20/2020 EST 16:09 EST Provider Outr Resulting Lab MICROBIOLOGY - GENERAL ORD ERABLES Performing Organization Address City/State/ZIP Code Phon e Number [facility] [address] [place] [address] SERVICES [facility] [place], [place] documented in this encounter Visit Diagnoses Not on filedocumented in this encounter Care Teams Decal Transferrer Relationship Specialty Start Date End Date Lolly Oliveira MD PCP - General 11/13/08 [address] [place] [address] documented as of this encounter
--- OUTSIDE RECORDS SUMMARY | 2022-01-26 13:54 | XMS_ITS | Encounter Summary ---
:1950 Author Organization [facility] Address [address] [place] [address] Care Team Providers Name Role Phone Lolly Oliveira MD Primary Care Provider Encounter Details Date Type Department Care Team Description 05/29/2002 Results Only [facility] - Lyric Quinn od, Silvia Blandon, CRAFT RECRUITER conversion [address] [facility] [address] [place] [phone] (Wo rk) Social History Tobacco Use Types [...] Performed At [facility] Method Time [facility] Pathology CYTOPATHOLOGY [...] Receive Date: ? 05/31/2002 Provider: ?SILVIA DIEHL CRAFT RECRUITER Copy to: ? Specimen/Source: ?ThinPrep Pap Test, [...] / Laterality Volume 05/29/2002 05/31/2002 Silvia Diehl CRAFT RECRUITER PATHOLOGY ORDERABLES Performing Organization Address City/State/ZIP Code Phon e Number [facility] [address] [place] [address] SERVICES [facility] [address] [place] [address] documented in this encounter Visit Diagnoses Not on filedocumented in this encounter Care Teams Child Development Teacher Relationship Specialty Start Date End Date Lolly Oliveira MD PCP - General 11/13/08 [address] [place] [address] documented as of this encounter
--- OUTSIDE RECORDS SUMMARY | 2022-01-26 13:54 | XMS_ITS | Encounter Summary ---
:1950 Author Organization [facility] Address [address] [place] [address] Care Team Providers Name Role Phone Lolly Oliveira MD Primary Care Provider Encounter Details Date Type Department Care Team Description 04/25/2009 Orders Only [facility] Janice Oliveira MD Laboratory Services - [address] [place] [address] [address] [place] [address] [phone] Social History Tobacco Use Types Packs/Day Years Used Date Smoking Tobacco: Never Assessed Sex Assigned at Date Recorded Not on file documented as of this encounter Plan of Treatment Not on filedocumented as of this encounter Procedures Procedure Name Priority Date/Time Associated Diagnosis Comme [facility] CYTOPATHOLOGY Routine 04/25/2009 0:00 EST Results for this procedure are i n the results section . documented in this encounter Results CYTOPATHOLOGY (04/25/2009 0:00 EST) Component Value Ref Test Analysis Performed At [facility] Pathology CYTOPATHOLOGY REPORT ? TOVA Report: ? [facility] Reports generated via electr onic interface contain original data; ? however they are lacking the format of the original report. ? Caution should be taken when reading/interpreting unformatted reports. ? Name: ? JING MOTT ? Accession #: ? [id number] ? : ? 1950 (Age: 58) ??F [...] Number [facility] [address] [place] [address] SERVICES [facility] [address] [place] [address] documented in this encounter Visit Diagnoses Not on filedocumented in this encounter Care Teams Blood Bank Custodian Relationship Specialty Start Date End Date Lolly Oliveira MD PCP - General 11/13/[address] [place] [address] documented as of this encounter
--- OUTSIDE RECORDS SUMMARY | 2022-01-26 13:54 | XMS_ITS | Clinical Summary ---
:1950 Author Organization [facility] [place] [address] Care Team Providers Name Role Phone Lolly [...] propionate (Flonase) Nare route daily. 50 mcg/actuation [place], Suspension bisacodyl EC 0 05/19/2021 Active (Dulcolax) [...] Phone Addre ss Type Group [place]UE [id number] 2021-Rogerio [phone] [facility] ADVANTAGE t [phone] [id number] [place] [address] Care Teams Program Strategist Relationship Specialty Start Date End Date Lolly Oliveira MD PCP - General 07/17/[address] [place] [id number]
--- OUTSIDE RECORDS SUMMARY | 2022-01-26 13:54 | XMS_ITS | Encounter Summary ---
:1950 Author Organization [facility] Address [address] [place] [address] Care Team Providers Name Role Phone Lolly Oliveira MD Primary Care Provider Encounter Details Date Type Department Care Team Description 05/27/2021 Lab Requisition [facility] Iman Moran for other Pathology & M, DO general examination Laboratory Medicine - [address] [employer] [facility] [address] [place] [phone] Social History Tobacco Use Types Packs/Day Years [...] Component Value Ref Test Analysis Performed At [facility] Range Method Time Signature Note to The following 05/30/2021 [facility] Patient pathology results 13:31 [facility] have been LABORATORY interpreted by SERVICES your pathologist and may be available to you before your health provider has had the opportunity to review them. Please allow time for your provider to receive these results and explore management options, if applicable. Final A. COLON, POLYP AT 90 CM, BIOPSY/POLYPECTOMY: 05/30/2021 [facility] Diagnosis - Tubular adenoma. 13:31 [facility] LABORATORY SERVICES Attestation By the signature 05/30/2021 [facility] L Electronically below, the 13:31 [facility] signed by attending LABORATORY Pippa Mcgee physician HARRIETT Fierro MD on certifies that 2021 at they have 1) 1331 personally conducted a gross and/or microscopic examination of the described specimen(s), and/or personally interpreted the results of laboratory testing of the described specimen(s), and 2) personally rendered or confirmed the above diagnosis. Clinical Severe 05/30/2021 [facility] History diverticula and 13:31 [facility] CENTER polypectomy x1 LABORATORY SERVICES Gross A. 05/30/2021 [facility] Description Received in formalin sharmaine d with proper patient identification (initials J, K) and colon polyp x1 at 90 cm is a light pineda polypoid tissue measuring 0.2 x 0.2 x 0.2 cm. Submitted intact in A1. 13:31 [facility] MICKEY CARLOS(ASCP) 05/27/2021 19:11 SERVICES Performing Lab [facility] 05/30/2021 [facility] AL LAB 13:31 [facility] LABORATORY SERVICES Scanned Images 05/30/2021 [facility] 13:31 [facility] LABORATORY SERVICES Specimen Anatomical Collection Method Collection Time Receive d Time (Source) Location / / Volume Laterality Tissue ENTIRE COLON / 05/27/2021 11:23 2 Unknown EDT 16:33 EDT Iman Moran DO PATHOLOGY ORDERABLES Performing Organization Address City/State/ZIP Code Phon e Number [facility] [address] [place] [address] SERVICES documented in this encounter Visit Diagnoses Diagnosis Encounter for other general examination documented in this encounter Care Teams Fiber Machine Tender Relationship Specialty Start Date End Date Lolly Oliveira MD PCP - General 11/13/08 [address] [place], [place] [address] documented as of this encounter
--- OUTSIDE RECORDS SUMMARY | 2022-01-26 13:54 | XMS_ITS | Encounter Summary ---
:1950 Author Organization [facility] Address [address] [place] [address] Care Team Providers Name Role Phone Lolly Oliveira MD Primary Care Provider Encounter Details Date Type Department Care Team Description 04/12/2007 Results Only [facility] - Lolly Mendoza MD conversion [address] [facility] [address] [place], [place] [address] [place] [address] [phone] Social History Tobacco Use Types Packs/Day Years [...] [facility] Method Time Signature Pathology CYTOPATHOLOGY REPORT [facility] [...] ? ThinPrep Pap Test, Cervix/Endocervix, processed on [employer] ThinPrep Imaging System, with manual evaluation Last [...] reviewed and electronically signed by: ? Anahy Klely, [facility](ASCP) ? Report Date: ??04/18/2007 12:31 End of Report Specimen (Source) Anatomical Location Collection Method / Collectio n Time Received Time / Laterality Volume 04/12/2007 04/13/2007 Lolly Oliveira MD PATHOLOGY ORDERABLES Performing Organization Address City/State/ZIP Code Phon e Number [facility] [address] [place] [address] SERVICES [facility] [address] [place] [address] documented in this encounter Visit Diagnoses Not on filedocumented in this encounter Care Teams Ancillary Services Manager Relationship Specialty Start Date End Date Lolly Oliveira MD PCP - General 11/13/08 [address] [place], [place] [address] documented as of this encounter
--- OUTSIDE RECORDS SUMMARY | 2022-01-26 13:54 | XMS_ITS | Clinical Summary ---
:1950 Author Organization [facility] Address [address] [place] [address] Care Team Providers Name Role Phone Lolly [...] / Group Dates BCBS [place]BS [place] BLUE [id number] 2021-Pres [phone] Medicare MEDICARE ADVANTAGE ent [id number] [place] [address] Care Teams Handy Worker Relationship Specialty Start Date End Date Lolly Oliveira MD PCP - General 11/13/08 [address] [place] [address]
--- OUTSIDE RECORDS SUMMARY | 2022-01-26 13:54 | XMS_ITS | Encounter Summary ---
:1950 Author Organization [facility] Address [address] [place] [address] Care Team Providers Name Role Phone Unavailable Primary Care Provider Unavailable Encounter Details Date Type Department Care Team Description 11/07/2008 Orders Only [facility] Kenneth Krishnan MD Laboratory Services - [address] [place] [address] [place] [address] [phone] Social History Tobacco Use Types Packs/Day Years Used Date Smoking Tobacco: Never Assessed Sex Assigned at Date Recorded Not on file documented as of this encounter Plan of Treatment Not on filedocumented as of this encounter Procedures Procedure Name Priority Date/Time Associated Diagnosis Comme [facility] SURGICAL PATHOLOGY Routine 11/07/2008 0:00 EDT Re sults for this procedure are i n the results section. documented in this encounter Results SURGICAL PATHOLOGY (11/07/2008 0:00 EDT) Component Value Ref Test Analysis Performed At [facility] Method Time Signature Pathology SURGICAL PATHOLOGY REPORT ? J LUIS HER Report: Reports generated via electr [employer] interface contain original data; ? [facility] however they are lacking the format of the original report. ? Caution should be taken when reading/interpreting unformatted reports. ? Name: ? LYLE, JING ? Accession #: ? [id number] ? : ? 1950 (Age: 58) ??F [...] Organization Address City/State/ZIP Code Phon e Number [facility] [address] [place] [address] SERVICES [facility] [address] [place] [address] documented in this encounter Visit Diagnoses Not on filedocumented in this encounter
--- OUTSIDE RECORDS SUMMARY | 2022-01-26 13:54 | XMS_ITS | Encounter Summary ---
:1950 Author Organization [facility] Address [address] [place] [address] Care Team Providers Name Role Phone Lolly Oliveira MD Primary Care Provider Encounter Details Date Type Department Care Team Description 06/16/2012 Results Only [facility] Janice Oliveira MD Laboratory Services - [address] [place] [address] 7[address] [facility] [place] [address] [phone] Social History Tobacco Use Types Packs/Day Years [...] Ref Test Analysis Performed At [facility] Method Time Signature Pathology CYTOPATHOLOGY REPORT [facility] [...] Organization Address City/State/ZIP Code Phon e Number [facility] [address] [place] [address] SERVICES [facility] [address] [place] [address] documented in this encounter Visit Diagnoses Not on filedocumented in this encounter Care Teams Television Repair Teacher Relationship Specialty Start Date End Date Lolly Oliveira MD PCP - General 11/13/08 [address] [place] [address] documented as of this encounter
--- OUTSIDE RECORDS SUMMARY | 2022-01-26 13:54 | XMS_ITS | Encounter Summary ---
:1950 Author Organization [facility] Address [address] [place] [address] Care Team Providers Name Role Phone Lolly Oliveira MD Primary Care Provider Encounter Details Date Type Department Care Team Description 11/13/2020 Lab Requisition [facility] Outr Resulting Lab, Pathology & Laboratory Provider [facility] [address] [place] [address] Social History Tobacco Use Types Packs/Day Years Used Date Smoking Tobacco: Never Assessed Sex Assigned at Date Recorded Not on file documented as of this encounter Plan of Treatment Not on filedocumented as of this encounter Procedures Procedure Name Priority Date/Time Associated Diagnosis Comme nts COVID-19 TEST [facility] Today 11/13/2020 7:30 EDT LAB PCR COVID-19 TESTING Routine 11/13/2020 7:30 EDT Resu lts for this procedure are i n the results section. documented in this encounter Results COVID-19 TEST [facility] LAB PCR (11/13/2020 7:30 EDT) Specimen Anatomical Location Collection Method Collection Time Received Time (Source) / Laterality / Volume Swab ENTIRE NASOPHARYNX 11/13/2020 7:30 2020 / Unknown EDT 20:57 EDT Provider Outr Resulting Lab MICROBIOLOGY - GENERAL ORD ERABLES Performing Organization Address City/State/ZIP Code Phon e Number [facility] [address] [place] [address] SERVICES COVID-19 TESTING (11/13/2020 7:30 EDT) Analysis Performed At Patho logist Time Signature COVID-19 Negative Negative 11/14/2020 [facility] rt-PCR Result 11:46 EDT CENTER LABORATORY [...] using the med SA RS-CoV-2 assay ([employer] on the Med 6800 System Performing Lab Med [address] [facility] 11/14/2020 11:46 E DT [facility] Lab LABORATORY SERVICES Specimen Anatomical Collection Method Collection Time Receive d Time (Source) Location / / Volume Laterality Swab 11/13/2020 7:30 11/13/2020 EDT 20:57 EDT Provider Outr Resulting Lab MICROBIOLOGY - GENERAL ORD ERABLES Performing Organization Address City/State/ZIP Code Phon e Number [facility] [address] [place] [address] SERVICES documented in this encounter Visit Diagnoses Not on filedocumented in this encounter Care Teams Cloth Folder Machine Relationship Specialty Start Date End Date Lolly Oliveira MD PCP - General 11/13/08 [address] [place], [place] [address] documented as of this encounter
--- OUTSIDE RECORDS SUMMARY | 2022-01-26 13:54 | XMS_ITS | Encounter Summary ---
:1950 Author Organization [facility] [place] [address] Care Team Providers Name Role Phone Lolly Oliveira MD Primary Care Provider Reason for Visit Reason Comments Follow-up Encounter Details Date Type Department Care Team Description 06/06/2021 Office Visit Dermatology at [facility] Psorias ishudson MD [address] [facility] Malcolm B DERMATOLOGY [place], [place] [id number] [phone] Social History Tobacco Use Types Packs/Day Years [...] psoriasis documented in this encounter Care Teams Canvas Cutter Machine Relationship Specialty Start Date End Date Lolly Oliveira MD PCP - General 07/17/13 [address] [place] [address] documented as of this encounter
--- OUTSIDE RECORDS SUMMARY | 2022-01-26 13:54 | XMS_ITS | Encounter Summary ---
:1950 Author Organization [facility] Address [address] [place] [address] Care Team Providers Name Role Phone Lolly Oliveira MD Primary Care Provider Encounter Details Date Type Department Care Team Description 05/02/2004 Results Only [facility] - Lolly Mendoza MD conversion 201 [facility] [address] [place], [place] [address] [place] [id number] [phone] Social History Tobacco Use Types Packs/Day Years [...] 57, and 66. Report Status Final [facility] [id number] [facility] Specimen Anatomical Collection Method Collection Time Receive d Time (Source) Location / / Volume Laterality 05/02/2004 9:32 05/10/2004 9 :32 EST EST Lolly Oliveira MD MICROBIOLOGY - GENERAL ORDER LOREN Performing Organization Address City/State/ZIP Code Phon e Number [facility] [address] [place] [address] SERVICES [facility] [address] [place] [address] CYTOPATHOLOGY (05/02/2004 0:00 EST) Component Value Ref [...] Organization Address City/State/ZIP Code Phon e Number [facility] [address] [place] [address] SERVICES [facility] [address] [place] [address] documented in this encounter Visit Diagnoses Not on filedocumented in this encounter Care Teams Green Material Value Added Assessor Relationship Specialty Start Date End Date Lolly Oliveira MD PCP - General 11/13/08 [address] [place] [address] documented as of this encounter
--- OUTSIDE RECORDS SUMMARY | 2022-01-26 13:54 | XMS_ITS | Encounter Summary ---
:[address] [facility] Address [address] [place] [address] Care Team Providers Name Role Phone Lolly Oliveira MD Primary Care Provider Encounter Details Date Type Department Care Team Description 03/06/2003 Results Only [facility] - Lolly Mendoza MD conversion 201 [facility] [address] [place], [place] [address] [place] [address] [phone] Social History Tobacco Use Types Packs/Day Years [...] Component Value Ref Test Analysis Performed At [facility] Method Time Signature Pathology CYTOPATHOLOGY REPORT [...] Address City/State/ZIP Code Phon e Number [facility] [address] [place] [address] SERVICES [facility] [address] [place] [address] documented in this encounter Visit Diagnoses Not on filedocumented in this encounter Care Teams Cloth Roll Winder Relationship Specialty Start Date End Date Lolly Oliveira MD PCP - General 11/13/08 [address] [place] [address] documented as of this encounter
--- OUTSIDE RECORDS SUMMARY | 2022-01-26 13:54 | XMS_ITS | Encounter Summary ---
:1950 Author Organization [facility] [place] [address] Care Team Providers Name Role Phone Lolly Oliveira MD Primary Care Provider Encounter Details Date Type Department Care Team Description 01/14/2022 Telephone Dermatology at [facility] Nora Meredith LPN [address] [place] [address] Social History Tobacco Use [...] return to phototherapy. New order sent to [facility]. Reviewed with patient Dr. Mar recommendation. She agrees with plan of care. Advised patient order will be sent to [facility]. She voiced understanding. documented in this encounter Plan of Treatment Not on filedocumented as of this encounter Visit Diagnoses Not on filedocumented in this encounter Care Teams Adjunct Art History Instructor Relationship Specialty Start Date End Date Lolly Oliveira MD PCP - General 07/17/13 [address] [place] [address] documented as of this encounter
--- OUTSIDE RECORDS SUMMARY | 2022-01-26 13:54 | XMS_ITS | Encounter Summary ---
:1950 Author Organization [facility] Address [address] [place] [address] Care Team Providers Name Role Phone Lolly Oliveira MD Primary Care Provider Encounter Details Date Type Department Care Team Description 03/21/2019 Lab Requisition [facility] Unknown, Provider, Pathology & Laboratory [facility] [address] [place] [address] [place] [address] Social History Tobacco Use Types Packs/Day Years [...] Signature Vitamin B12 [phone] 03/22/2019 [facility] pg/mL 11:52 EST CENTER LABORATORY SERVICES Specimen Anatomical Collection Method Collection Time Receive d Time (Source) Location / / Volume Laterality Blood VENOUS BLOOD / 03/16/2019 9:25 03/21/2019 Unknown EST 21:35 EST Provider Unknown CHEMISTRY & BLOOD GAS ORDERA BLES Performing Organization Address City/State/ZIP Code Phon e Number [facility] [address] [place] [address] SERVICES documented in this encounter Visit Diagnoses Not on filedocumented in this encounter Care Teams Lab Engineer Relationship Specialty Start Date End Date Lolly Oliveira MD PCP - General 11/13/08 [address] [place] [address] documented as of this encounter
--- OUTSIDE RECORDS SUMMARY | 2022-01-26 13:55 | XMS_ITS | Encounter Summary ---
:1950 Author Organization [facility] [place] [address] Care Team Providers Name Role Phone Lolly Oliveira MD Primary Care Provider Encounter Details Date Type Department Care Team Description 07/20/2013 Hospital Mammography at [facility] COX Mammographic Encounter [facility] Lolly Oliveira MD [address] [place] [address] [place] [address] Social History Tobacco Use Types [...] does not layer and, therefore, are not publications sales representative of milk of calcium. Again [...] does not layer and, therefore, are not publications sales representative of milk of calcium. Again , these have an amorphous and punctate appearance and remain indeterminate. Malcolm reotactic guided biopsy is recommended. Alia Fraire MD IMG MAMMO ORDERABLES documented in this encounter Visit Diagnoses Diagnosis Mammographic microcalcification documented in this encounter Care Teams Horseback Excavator Relationship Specialty Start Date End Date Lolly Oliveira MD PCP - General 07/17/13 [address] [place] [address] documented as of this encounter
--- OUTSIDE RECORDS SUMMARY | 2022-01-26 13:55 | XMS_ITS | Encounter Summary ---
:1950 Author Organization [place] [address] Care Team Providers Name Role Phone Lolly Oliveira MD Primary Care Provider Encounter Details Date Type Department Care Team Description 06/29/2011 Orders Only Radiology Eleno Christian MD [facility] [place] [address] DIAGNOSTIC RADIOLOGY [phone] [place] [id number] (Wo rk) Social History Tobacco Use Types [...] on filedocumented in this encounter Care Teams Rotary Machine Operator Relationship Specialty Start Date End Date Lolly Oliveira MD PCP - General 07/17/13 [address] [place] [address] documented as of this encounter
--- OUTSIDE RECORDS SUMMARY | 2022-01-26 13:55 | XMS_ITS | Encounter Summary ---
:1950 Author Organization [place] [address] Care Team Providers Name Role Phone Lolly Oliveira MD Primary Care Provider Encounter Details Date Type Department Care Team Description 07/18/2013 Orders Only Radiology Alia Fraire, Mammographic [facility] microcalcification ([address] [facility]) [facility] [address] DIAGNOSTIC [phone] [place] [address] Social History Tobacco Use Types Packs/Day Years [...] are present on specimen digital X-ray. A MIKA Audiork Eviva-Stereo 13 Cylinder marker clip was placed. [...] are present on specimen digital X-ray. A MIKA Audiork Eviva-Stereo 13 Cylinder marker clip was placed. [...] does not layer and, therefore, are not packaging sales representative of milk of calcium. Again [...] does not layer and, therefore, are not packaging sales representative of milk of calcium. Again , these have an amorphous and punctate appearance and remain indeterminate. Malcolm reotactic guided biopsy is recommended. Alia Fraire MD IMG MAMMO ORDERABLES documented in this encounter Visit Diagnoses Diagnosis Mammographic microcalcification - Primar y Mammographic microcalcification Mammographic microcalcification Mammographic microcalcification Mammographic microcalcification documented in this encounter Care Teams Technical Aid Relationship Specialty Start Date End Date Lolly Oliveira MD PCP - General 07/17/13 [address] [place] [address] documented as of this encounter
--- OUTSIDE RECORDS SUMMARY | 2022-01-26 13:55 | XMS_ITS | Encounter Summary ---
:1950 Author Organization [facility] [place] [address] Care Team Providers Name Role Phone Lolly Oliveira MD Primary Care Provider Reason for Visit Reason Comments Skin Check Encounter Details Date Type Department Care Team Description 11/23/2014 Office Visit Dermatology at Clay Ramírez MD Dermatofibroma; [place] [address] [place]; [address] Malcolm DERMATOL OGY [place] [address] [place], [place] [phone] (Wo rk) [address] [phone] Social History Tobacco Use Types Packs/Day Years [...] dyschromia documented in this encounter Care Teams Global Manager Relationship Specialty Start Date End Date Lolly Oliveira MD PCP - General 07/17/13 [address] [place] [address] documented as of this encounter
--- OUTSIDE RECORDS SUMMARY | 2022-01-26 13:55 | XMS_ITS | Encounter Summary ---
:1950 Author Organization [place] [address] Care Team Providers Name Role Phone Lolly Oliveira MD Primary Care Provider Encounter Details Date Type Department Care Team Description 07/17/2013 Orders Only Radiology Lolly Ocampo MD [facility] [address] [facility] [place] [address] [place] [address] [phone] Social History Tobacco Use Types Packs/Day Years [...] MAMMOGRAMS (PERFORMED ON 07/06/13 AND 07/14/13) [facility] D[facility] 07/17/13: ?? DIAGNOSTIC IMAGING SUMMARY: ?? [...] (PE RFORMED ON 07/06/13 AND 07/14/13) [facility] DATED 07/17/13: DIAGNOSTIC IMAGING SUMMARY: RIGHT BREAST [...] on filedocumented in this encounter Care Teams Tower Supervisor Relationship Specialty Start Date End Date Lolly Oliveira MD PCP - General 07/17/13 [address] [place] [address] documented as of this encounter
--- OUTSIDE RECORDS SUMMARY | 2022-01-26 13:55 | XMS_ITS | Encounter Summary ---
:1950 Author Organization [facility] [place] [address] Care Team Providers Name Role Phone Lolly Oliveira MD Primary Care Provider Encounter Details Date Type Department Care Team Description 07/26/2013 Hospital Encounter Mammography at [facility] Mammographic [facility] [place] [phone] Social History Tobacco Use Types Packs/Day Years [...] microcalcification documented in this encounter Care Teams Drum Stenciler Relationship Specialty Start Date End Date Lolly Oliveira MD PCP - General 07/17/13 [address] [place] [address] documented as of this encounter
--- OUTSIDE RECORDS SUMMARY | 2022-01-26 13:55 | XMS_ITS | Encounter Summary ---
:1950 Author Organization [facility] [place] [address] Care Team Providers Name Role Phone Lolly Oliveira MD Primary Care Provider Encounter Details Date Type Department Care Team Description 07/26/2013 Orders Only Radiology Eleno Christian MD [facility] [place] [place] [address] DIAGNOSTIC RADIOLOGY [phone] [place] [address] (Wo rk) Social History Tobacco Use Types [...] filedocumented in this encounter Care Teams Manager Resort Relationship Specialty Start Date End Date Lolly Oliveira MD PCP - General 07/17/13 [address] [place] [address] documented as of this encounter
--- OUTSIDE RECORDS SUMMARY | 2022-01-26 13:55 | XMS_ITS | Encounter Summary ---
:1950 Author Organization [facility] [place] [address] Care Team Providers Name Role Phone Lolly Oliveira MD Primary Care Provider Encounter Details Date Type Department Care Team Description 04/01/2021 Office Visit Dermatology at [facility] Ram[facility]rez Psorias is, hudson Meadows MD [address] [facility] Malcolm B DERMATOLOGY [place], [place] [address] [phone] Social History Tobacco Use Types Packs/Day Years [...] psoriasis documented in this encounter Care Teams Guitar Teacher Relationship Specialty Start Date End Date Lolly Oliveira MD PCP - General 07/17/13 [address] [place] [address] documented as of this encounter
--- OUTSIDE RECORDS SUMMARY | 2022-01-26 13:55 | XMS_ITS | Encounter Summary ---
:1950 Author Organization [facility] [place] [address] Care Team Providers Name Role Phone Unavailable Primary Care Provider Unavailable Encounter Details Date Type Department Care Team Description 07/04/2012 Orders Only Radiology Eleno Christian MD [facility] [place] [address] DIAGNOSTIC RADIOLOGY [phone] [place], [place] [address] (Wo rk) Social History Tobacco [...] is a Non-reportable exam Eleno Christian MD [facility] FILM LIBRARY ORDERABLES documented in this encounter Visit Diagnoses Not on filedocumented in this encounter
--- OUTSIDE RECORDS SUMMARY | 2022-01-26 13:55 | XMS_ITS | Encounter Summary ---
:1950 [place] [address] Care Team Providers Name Role Phone Lolly Oliveira MD Primary Care Provider Encounter Details Date Type Department Care Team Description 07/26/2013 Hospital Encounter Mammography at [facility] Mammographic [facility] [place] [id number] Social History Tobacco Use Types Packs/Day Years [...] Component Value Ref Test Analysis Performed At [facility] Method Time Signature Surgical CERNER Pathology ? [facility] Report ? Provider: ?? ELENO CHRISTIAN ?? Pt. Name: ?? JING MOTT ? Acc #: ?[id number] ?Pt. MRN: ?[id number] ? Col Date: ?? 4 ? /Sex: [...] Partially fragmented, fibrofatty needle core biopsies. ? [facility] ? Provider: ?? ELENO CHRISTIAN ?? Pt. Name: ?? JING MOTT ? Acc #: ?[id number] ?Pt. MRN: ?[id number] ? Col Date: ?? 4 ? /Sex: [...] Organization Address City/State/[place] [address] [facility] Mammo Specimen Imaging During Biopsy (07/26/2013 11:58 [...] are present on specimen digital X-ray. A [employer] Eviva-Stereo 13 Cylinder marker clip was placed. [...] are present on specimen digital X-ray. A Mark [employer] Eviva-Stereo 13 Cylinder marker clip was placed. [...] microcalcification documented in this encounter Care Teams Industrial Staff Nurse Relationship Specialty Start Date End Date Lolly Oliveira MD PCP - General 07/17/13 [address] [place] [address] documented as of this encounter
--- OUTSIDE RECORDS SUMMARY | 2022-01-26 13:55 | XMS_ITS | Encounter Summary ---
:1950 Author Organization [place] [address] Care Team Providers Name Role Phone Lolly Oliveira MD Primary Care Provider Encounter Details Date Type Department Care Team Description 07/17/2013 Hospital Encounter XRay at [facility], [address] [place] [address] [place] [address] Social History Tobacco Use Types Packs/Day Years Used Date Smoking Tobacco: Never Assessed Sex Assigned at Date Recorded Not on file documented as of this encounter Consult Notes Provider, Hollie - 07/17/2013 7:56 AM EDT documented in this encounter Plan of Treatment Not on filedocumented as of this encounter Visit Diagnoses Not on filedocumented in this encounter Care Teams Porter Luggage Relationship Specialty Start Date End Date Lolly Oliveira MD PCP - General 07/17/13 [address] [place] [address] documented as of this encounter
--- OUTSIDE RECORDS SUMMARY | 2022-01-26 13:55 | XMS_ITS | Encounter Summary ---
:1950 Author Organization [facility] [place] [address] Care Team Providers Name Role Phone Unavailable Primary Care Provider Unavailable Encounter Details Date Type Department Care Team Description 07/14/2013 External Results XRay at [facility] Provider, [address] [place] [address] Social History Tobacco Use Types Packs/Day [...]
--- OUTSIDE RECORDS SUMMARY | 2022-01-26 13:55 | XMS_ITS | Encounter Summary ---
:1950 Author Organization [facility] [place] [address] Care Team Providers Name Role Phone Lolly Oliveira MD Primary Care Provider Encounter Details Date Type Department Care Team Description 07/26/2013 Hospital Mammography at [facility], [address] Mammographic Encounter [facility] Lolly Oliveira MD [address] [place] [address] [place] [address] Social History Tobacco Use Types [...] Organization Address City/State/[place] [address] [employer] documented in this encounter Visit Diagnoses Diagnosis [...] Routine documented in this encounter Care Teams Formstone Fitter Relationship Specialty Start Date End Date Lolly Oliveira MD PCP - General 07/17/13 [address] [place] [address] documented as of this encounter
--- OUTSIDE RECORDS SUMMARY | 2022-01-28 10:07 | XMS_ITS | Encounter Summary ---
:1950 Author Organization [facility] Address [address] [place] [address] Care Team Providers Name Role Phone Lolly Oliveira MD Primary Care Provider Encounter Details Date Type Department Care Team Description 02/11/[address] [facility] Outr Resulting Lab, Pathology & Laboratory Provider [facility] [address] [place] [address] Social History Tobacco Use Types Packs/Day [...] e Number [facility] LABORATORY [address] [place] [address] SERVICES COVID-19 TESTING (02/11/2021 8:00 EST) Analysis Performed At [facility] Time Signature COVID-19 Negative Negative 02/12/2021 [facility] MEDICAL rt-PCR Result 14:17 EST CENTER [...] using the med SA RS-CoV-2 assay ([employer] on the Med 6800 System Performing Lab Med [address] [facility] 02/12/2021 14:17 [facility] Lab LABORATORY SERVICES Specimen Anatomical Collection Method Collection Time Receive d Time (Source) Location / / Volume Laterality Swab 02/11/2021 8:00 02/11/2021 EST 22:22 EST Provider Outr Resulting Lab MICROBIOLOGY - GENERAL ORD ERABLES Performing Organization Address City/State/ZIP Code Phon e Number [facility] LABORATORY [address] [place] [address] SERVICES documented in this encounter Visit Diagnoses Not on filedocumented in this encounter Care Teams Youth Officer Relationship Specialty Start Date End Date Lolly Oliveira MD PCP - General 11/13/08 [address] [place], [place] [address] documented as of this encounter
--- OUTSIDE RECORDS SUMMARY | 2022-01-28 10:07 | XMS_ITS | Encounter Summary ---
:1950 Author Organization [facility] Address [address] [place] [address] Care Team Providers Name Role Phone Lolly Oliveira MD Primary Care Provider Encounter Details Date Type Department Care Team Description 04/12/2007 Results Only [facility] - Lolly Mendoza MD conversion [address] [facility] [address] [place], [place] [address] [place] [address] [phone] Social History Tobacco Use Types Packs/Day Years [...] Component Value Ref Test Analysis Performed At [facility] Method Time Signature Pathology CYTOPATHOLOGY REPORT [...] ? ThinPrep Pap Test, Cervix/Endocervix, processed on [employer] ThinPrep Imaging System, with manual evaluation Last [...] and electronically signed by: ? Anahy Kelly, [facility](ASCP) ? Report Date: ??04/18/2007 12:31 End of Report Specimen (Source) Anatomical Location Collection Method / Collectio n Time Received Time / Laterality Volume 04/12/2007 04/13/2007 Lolly Oliveira MD PATHOLOGY ORDERABLES Performing Organization Address City/State/ZIP Code Phon e Number [facility] LABORATORY [address] [place] [address] SERVICES [facility] [address] [place] [address] documented in this encounter Visit Diagnoses Not on filedocumented in this encounter Care Teams Laser Engraver Relationship Specialty Start Date End Date Lolly Oliveira MD PCP - General 11/13/08 [address] [place], [place] [address] documented as of this encounter
--- OUTSIDE RECORDS SUMMARY | 2022-01-28 10:07 | XMS_ITS | Encounter Summary ---
:1950 Author Organization [facility] [place] [address] Care Team Providers Name Role Phone Lolly Oliveira MD Primary Care Provider Encounter Details Date Type Department Care Team Description 04/01/2021 Office Visit Dermatology at Clay Ramírez Psorias is, hudson Meadows MD [address] [facility] Malcolm B DERMATOLOGY [place], [place] [address] [phone] Social History Tobacco Use Types Packs/Day Years [...] psoriasis documented in this encounter Care Teams Reservations Agent Relationship Specialty Start Date End Date Lolly Oliveira MD PCP - General 07/17/13 [address] [place] [address] documented as of this encounter
--- OUTSIDE RECORDS SUMMARY | 2022-01-28 10:07 | XMS_ITS | Encounter Summary ---
:1950 Author Organization [facility] Address [address] [place] [address] Care Team Providers Name Role Phone Lolly Oliveira MD Primary Care Provider Encounter Details Date Type Department Care Team Description 05/27/2021 Lab Requisition [facility] Iman Moran for other Pathology & M, DO general examination Laboratory Medicine - [address] [facility] [address] [place] [phone] Social History Tobacco Use Types Packs/Day Years [...] Component Value Ref Test Analysis Performed At [facility] Range Method Time Signature Note to The following 05/30/2021 [facility] [[email or web address] MEDICAL Patient pathology results 13:31 [facility] have been LABORATORY interpreted by SERVICES your pathologist and may be available to you before your health provider has had the opportunity to review them. Please allow time for your provider to receive these results and explore management options, if applicable. Final A. COLON, POLYP AT 90 CM, BIOPSY/POLYPECTOMY: 05/30/2021 [facility] [[email or web address] MEDICAL Diagnosis - Tubular adenoma. 13:31 [facility] LABORATORY SERVICES Attestation By the signature 05/30/2021 [facility] [[email or web address]] MEDICA L Electronically below, the 13:31 [facility] signed by attending LABORATORY Pippa Mcgee physician HARRIETT Fierro MD on certifies that 2021 at they have 1) 1331 personally conducted a gross and/or microscopic examination of the described specimen(s), and/or personally interpreted the results of laboratory testing of the described specimen(s), and 2) personally rendered or confirmed the above diagnosis. Clinical Severe 05/30/2021 [facility] [[email or web address]] MEDICAL History diverticula and 13:31 [facility] polypectomy x1 LABORATORY SERVICES Gross A. 05/30/2021 [facility] [[email or web address]] MEDICAL Description Received in formalin sharmaine d with proper patient identification (initials J, K) and colon polyp x1 at 90 cm is a light pineda polypoid tissue measuring 0.2 x 0.2 x 0.2 cm. Submitted intact in A1. 13:31 [facility] LABORATORY MICKEY CARLOS(ASCP) 05/27/2021 19:11 SERVICES Performing Lab [facility] 05/30/2021 [facility] [[email or web address]] MEDIC AL LAB 13:31 [facility] LABORATORY SERVICES Scanned Images 05/30/2021 [facility] [[email or web address]] MEDICAL 13:31 [facility] LABORATORY SERVICES Specimen Anatomical Collection Method Collection Time Receive d Time (Source) Location / / Volume Laterality Tissue ENTIRE COLON / 05/27/2021 11:23 2 Unknown EDT 16:33 EDT Iman Moran DO PATHOLOGY ORDERABLES Performing Organization Address City/State/ZIP Code Phon e Number [facility] LABORATORY [address] [place] [address] SERVICES documented in this encounter Visit Diagnoses Diagnosis Encounter for other general examination documented in this encounter Care Teams Mule Spinner Relationship Specialty Start Date End Date Lolly Oliveira MD PCP - General 11/13/08 [address] [place], [place] [address] documented as of this encounter
--- OUTSIDE RECORDS SUMMARY | 2022-01-28 10:07 | XMS_ITS | Encounter Summary ---
:1950 Author Organization [facility] Address [address] [place] [address] Care Team Providers Name Role Phone Lolly Oliveira MD Primary Care Provider Encounter Details Date Type Department Care Team Description 02/20/2020 Lab Requisition [facility] Outr Resulting Lab, Pathology & Laboratory Provider [facility] [address] [place] [address] Social History Tobacco Use Types [...] TEST (02/19/2020 16:30 EST) Analysis Performed At [facility] Time Signature COVID-19 NEGATIVE Negative 02/22/2020 BROAD [...] Organization Address City/State/ZIP Code Phon e Number [facility] LABORATORY [facility] LABORATORY [place], [place] COVID-19 TESTING (02/19/2020 16:30 EST) Analysis Performed At [facility] Time Signature COVID-19 NEGATIVE Negative 02/22/2020 BROAD [...] Use Authorization. Performing Lab [facility] 02/22/2020 23:4 1 EST [facility] LABORATORY SERVICES Specimen Anatomical Collection Method Collection Time Receive d Time (Source) Location / / Volume Laterality Swab 02/19/2020 16:30 02/20/2020 EST 16:09 EST Provider Outr Resulting Lab MICROBIOLOGY - GENERAL ORD ERABLES Performing Organization Address City/State/ZIP Code Phon e Number [facility] LABORATORY [address] [place] [address] SERVICES [facility] LABORATORY [place], [place] documented in this encounter Visit Diagnoses Not on filedocumented in this encounter Care Teams Infection Control Practitioner Relationship Specialty Start Date End Date Lolly Oliveira MD PCP - General 11/13/08 [address] [place] [address] documented as of this encounter
--- OUTSIDE RECORDS SUMMARY | 2022-01-28 10:07 | XMS_ITS | Encounter Summary ---
:1950 Author Organization [facility] Address [address] [place] [address] Care Team Providers Name Role Phone Lolly Oliveira MD Primary Care Provider Encounter Details Date Type Department Care Team Description 05/29/2002 Results Only [facility] - Lyric Quinn od, Silvia Blandon, GANG DRILL OPERATOR conversion [address] [facility] [address] [place] [phone] (Wo rk) Social History Tobacco Use Types [...] Component Value Ref Test Analysis Performed At [facility] Method Time [facility] Pathology CYTOPATHOLOGY REPORT [...] Receive Date: ? 05/31/2002 Provider: ?SILVIA DIEHL GANG DRILL OPERATOR Copy to: ? Specimen/Source: ?ThinPrep Pap Test, [...] / Laterality Volume 05/29/2002 05/31/2002 Silvia Diehl GANG DRILL OPERATOR PATHOLOGY ORDERABLES Performing Organization Address City/State/ZIP Code Phon e Number [facility] [address] [place] [address] SERVICES [facility] [address] [place] [address] documented in this encounter Visit Diagnoses Not on filedocumented in this encounter Care Teams Senior Property Manager Relationship Specialty Start Date End Date Lolly Oliveira MD PCP - General 11/13/08 [address] [place] [address] documented as of this encounter
--- OUTSIDE RECORDS SUMMARY | 2022-01-28 10:07 | XMS_ITS | Encounter Summary ---
:1950 Author Organization [facility] Address [address] [place] [address] Care Team Providers Name Role Phone Lolly Oliveira MD Primary Care Provider Encounter Details Date Type Department Care Team Description 04/25/[address] Orders [address] [facility] Janice Oliveira MD Laboratory Services - [place] [address] [place] [address] [address] [facility] [place] [address] [phone] Social History Tobacco Use Types Packs/Day Years Used Date Smoking Tobacco: Never Assessed Sex Assigned at Date Recorded Not on file documented as of this encounter Plan of Treatment Not on filedocumented as of this encounter Procedures Procedure Name Priority Date/Time Associated Diagnosis [facility] CYTOPATHOLOGY Routine 04/25/2009 0:00 EST Results for this procedure are i n the results section . documented in this encounter Results CYTOPATHOLOGY (04/25/2009 0:00 EST) Component Value Ref Test Analysis Performed At [facility] Pathology CYTOPATHOLOGY REPORT ? TOVA Report: ? [facility] Reports generated via electr onic interface contain original data; ? however they are lacking the format of the original report. ? Caution should be taken when reading/interpreting unformatted reports. ? Name: ? JING MOTT ? Accession #: ? [id number] ? : ? 1950 (Age: 58) ??F [...] Organization Address City/State/ZIP Code Phon e Number [facility]ORY [address] [place] [address] SERVICES [facility] [address] [place] [address] documented in this encounter Visit Diagnoses Not on filedocumented in this encounter Care Teams Material Stress Tester Relationship Specialty Start Date End Date Lolly Oliveira MD PCP - General 11/13/[address] [place] [address] documented as of this encounter
--- OUTSIDE RECORDS SUMMARY | 2022-01-28 10:07 | XMS_ITS | Encounter Summary ---
:1950 Author Organization [facility] Address [address] [place] [address] Care Team Providers Name Role Phone Lolly Oliveira MD Primary Care Provider Encounter Details Date Type Department Care Team Description 03/21/2019 Lab Requisition [facility] Unknown, Provider, Pathology & Laboratory [facility] [address] [place] [address] [place] [address] Social History Tobacco Use Types Packs/Day Years [...] Signature Vitamin B12 [phone] 03/22/2019 [facility] MEDICAL pg/mL 11:52 EST CENTER LABORATORY SERVICES Specimen Anatomical Collection Method Collection Time Receive d Time (Source) Location / / Volume Laterality Blood VENOUS BLOOD / 03/16/2019 9:25 03/21/2019 Unknown EST 21:35 EST Provider Unknown CHEMISTRY & BLOOD GAS ORDERA BLES Performing Organization Address City/State/ZIP Code Phon e Number [facility] LABORATORY [address] [place] [address] SERVICES documented in this encounter Visit Diagnoses Not on filedocumented in this encounter Care Teams Top Lift Scourer Relationship Specialty Start Date End Date Lolly Oliveira MD PCP - General 11/13/08 [address] [place] [address] documented as of this encounter
--- OUTSIDE RECORDS SUMMARY | 2022-01-28 10:07 | XMS_ITS | Encounter Summary ---
:1950 Author Organization [facility] [place] [address] Care Team Providers Name Role Phone Lolly Oliveira MD Primary Care Provider Reason for Visit Reason Comments Follow-up Encounter Details Date Type Department Care Team Description 06/06/2021 Office Visit Dermatology at Clay Ramírez Psorias ishudson MD [address] [facility] Malcolm B DERMATOLOGY [place], [place] [phone] Social History Tobacco Use Types Packs/Day Years [...] psoriasis documented in this encounter Care Teams Sandblast Carver Relationship Specialty Start Date End Date Lolly Oliveira MD PCP - General 07/17/13 [address] [place] [address] documented as of this encounter
--- OUTSIDE RECORDS SUMMARY | 2022-01-28 10:07 | XMS_ITS | Encounter Summary ---
:1950 Author Organization [facility] Address [address] [place] [address] Care Team Providers Name Role Phone Lolly Oliveira MD Primary Care Provider Encounter Details Date Type Department Care Team Description 04/01/2005 Results Only [facility] - Blari Comer MD conversion [address] [place] [id number] [place] [address] [phone] Social History Tobacco Use Types Packs/Day Years Used Date Smoking Tobacco: Never Assessed Sex Assigned at Date Recorded Not on file documented as of this encounter Plan of Treatment Not on filedocumented as of this encounter Procedures Procedure Name Priority Date/Time Associated Diagnosis Comme [facility] SURGICAL PATHOLOGY Routine 04/01/2005 0:00 EST Re sults for this procedure are i n the results section. documented in this encounter Results SURGICAL PATHOLOGY (04/01/2005 0:00 EST) Component Value Ref Test Analysis Performed At [facility] Method Time Signature Pathology SURGICAL PATHOLOGY REPORT FRANSISCO BORGES Report: Reports generated via electronic interface contain origina l data; LIBBY BLANCO however they are lacking the format of the original report. Caution should be taken when reading/interpreting unformatte d reports. Name: ? JING MOTT ? Accession #: ? [id number] ? : ? 1950 (Age: 54) ??F [...] tissue, submitted intact as ( B). ??(Dr. Lechuga)/[facility] End of Report Specimen (Source) Anatomical Collection Method Collection Time Re ceived Time Location / / Volume Laterality 04/01/2005 04/02/2005 15:2 4 EST Blair Dukes MD PATHOLOGY ORDERABLES Performing Organization Address City/State/ZIP Code Phon e Number [facility] [address] [place] [address] SERVICES [facility] [address] [place] [address] documented in this encounter Visit Diagnoses Not on filedocumented in this encounter Care Teams Cleat Maker Relationship Specialty Start Date End Date Lolly Oliveira MD PCP - General 11/13/08 [address] [place] [address] documented as of this encounter
--- OUTSIDE RECORDS SUMMARY | 2022-01-28 10:07 | XMS_ITS | Encounter Summary ---
:1950 Author Organization [facility] Address [address] [place] [address] Care Team Providers Name Role Phone Lolly Oliveira MD Primary Care Provider Encounter Details Date Type Department Care Team Description 04/17/2005 Results Only [facility] - Lolly Mendoza MD conversion [address] [facility] [address] [place], [place] [address] [place] [address] [phone] Social History Tobacco Use Types Packs/Day Years [...] ? ThinPrep Pap Test, Cervix/Endocervix, processed on Advenchen LaboratoriesPrep Imaging System, with manual evaluation Last Menstrual [...] Organization Address City/State/ZIP Code Phon e Number [facility] [address] [place] [address] SERVICES [facility] [address] [place] [address] documented in this encounter Visit Diagnoses Not on filedocumented in this encounter Care Teams Bioinformatics Software Engineer Relationship Specialty Start Date End Date Lolly Oliveira MD PCP - General 11/13/08 [address] [place] [address] documented as of this encounter
--- OUTSIDE RECORDS SUMMARY | 2022-01-28 10:07 | XMS_ITS | Encounter Summary ---
:[address] [facility] Address [address] [place] [address] Care Team Providers Name Role Phone Lolly Oliveira MD Primary Care Provider Encounter Details Date Type Department Care Team Description 11/13/2020 Lab Requisition [facility] Outr Resulting Lab, Pathology & Laboratory Provider [facility] [address] [place] [address] Social History Tobacco Use Types Packs/Day Years Used Date Smoking Tobacco: Never Assessed Sex Assigned at Date Recorded Not on file documented as of this encounter Plan of Treatment Not on filedocumented as of this encounter Procedures Procedure Name Priority Date/Time Associated Diagnosis Comme nts COVID-19 TEST [facility] Today 11/13/2020 7:30 EDT LAB PCR COVID-19 TESTING Routine 11/13/2020 7:30 EDT Resu lts for this procedure are i n the results section. documented in this encounter Results COVID-19 TEST [facility] LAB PCR (11/13/2020 7:30 EDT) Specimen Anatomical Location Collection Method Collection Time Received Time (Source) / Laterality / Volume Swab ENTIRE NASOPHARYNX 11/13/2020 7:30 2020 / Unknown EDT 20:57 EDT Provider Outr Resulting Lab MICROBIOLOGY - GENERAL ORD ERABLES Performing Organization Address City/State/ZIP Code Phon e Number [facility] [address] [place] [address] SERVICES COVID-19 TESTING (11/13/2020 7:30 EDT) Analysis Performed At Patho logist Time Signature COVID-19 Negative Negative 11/14/2020 [facility] MEDICAL rt-PCR Result 11:46 EDT CENTER LABORATORY [...] using the med SA RS-CoV-2 assay (Stephanie Prismatic System, Inc.) on the Med 6800 System Performing Lab Med [address] [facility] 11/14/2020 11:46 E DT [facility] Lab LABORATORY SERVICES Specimen Anatomical Collection Method Collection Time Receive d Time (Source) Location / / Volume Laterality Swab 11/13/2020 7:30 11/13/2020 EDT 20:57 EDT Provider Outr Resulting Lab MICROBIOLOGY - GENERAL ORD ERABLES Performing Organization Address City/State/ZIP Code Phon e Number [facility] [address] [place] [address] SERVICES documented in this encounter Visit Diagnoses Not on filedocumented in this encounter Care Teams Atm Servicer Relationship Specialty Start Date End Date Lolly Oliveira MD PCP - General 11/13/08 [address] [place], [place] [address] documented as of this encounter
--- OUTSIDE RECORDS SUMMARY | 2022-01-28 10:07 | XMS_ITS | Encounter Summary ---
:1950 Author Organization [facility] [address] Care Team Providers Name Role Phone Lolly Oliveira MD Primary Care Provider Encounter Details Date Type Department Care Team Description 01/14/2022 Telephone Dermatology at [facility] Nora Meredith LPN [address] [place] [address] Social History Tobacco Use [...] on filedocumented in this encounter Care Teams Swager Operator Relationship Specialty Start Date End Date Lolly Oliveira MD PCP - General 07/17/13 [address] [place] [address] documented as of this encounter
--- OUTSIDE RECORDS SUMMARY | 2022-01-28 10:07 | XMS_ITS | Encounter Summary ---
:1950 [place] [address] Care Team Providers Name Role Phone Lolly Oliveira MD Primary Care Provider Encounter Details Date Type Department Care Team Description 07/26/2013 Hospital Encounter [facility]amm[facility] Mammographic [facility] [place] [id number] Social History Tobacco Use Types Packs/Day Years [...] - [facility] Method Time Signature Surgical CERNER Pathology ? [facility] Report ? Provider: ?? ELENO CHRISTIAN ?? Pt. Name: ?? JING MOTT ? Acc #: ?[id number] ?Pt. MRN: ?[id number] ? Col Date: ?? 4 ? /Sex: [...] fibrofatty needle core biopsies. ? [facility] ? Provider: ?? ELENO CHRISTIAN ?? Pt. Name: ?? JING MOTT ? Acc #: ?[id number] ?Pt. MRN: ?[id number] ? Col Date: ?? 4 ? /Sex: [...] Organization Address City/State/[place] [address] [employer] Mammo Specimen Imaging During Biopsy (07/26/2013 11:58 [...] are present on specimen digital X-ray. A [employer] Eviva-Stereo 13 Cylinder marker clip was placed. [...] are present on specimen digital X-ray. A Hipp[employer] Cent[employer]rk Eviva-Stereo 13 Cylinder marker clip was placed. [...] microcalcification documented in this encounter Care Teams Valve Maker Relationship Specialty Start Date End Date Lolly Oliveira MD PCP - General 07/17/13 [address] [place] [address] documented as of this encounter
--- OUTSIDE RECORDS SUMMARY | 2022-01-28 10:07 | XMS_ITS | Encounter Summary ---
:1950 Author Organization [facility] [place] [address] Care Team Providers Name Role Phone Lolly Olievira MD Primary Care Provider Reason for Visit Reason Comments Skin Check Encounter Details Date Type Department Care Team Description 11/23/2014 Office Visit Dermatology at Clay Ramírez MD Dermatofibroma; [place] [address] Nevus; [address] Amlcolm [place]ERMAT[place] [address] [place], [place] [phone] (Wo rk) [phone] [phone] Social History Tobacco Use Types Packs/Day Years [...] dyschromia documented in this encounter Care Teams Chief Security And Safety Officer Relationship Specialty Start Date End Date Lolly Oliveira MD PCP - General 07/17/13 [address] [place] [address] documented as of this encounter
--- OUTSIDE RECORDS SUMMARY | 2022-01-28 10:07 | XMS_ITS | Encounter Summary ---
:1950 Author Organization [facility] [place] [address] Care Team Providers Name Role Phone Lolly Oliveira MD Primary Care Provider Encounter Details Date Type Department Care Team Description 07/26/2013 Orders Only Radiology Eleno Christian MD [facility] [place] [address] DIAGNOSTIC RADIOLOGY [phone] [place] [id number] (Wo rk) Social History Tobacco Use Types [...] filedocumented in this encounter Care Teams Supervisor Dimension Warehouse Relationship Specialty Start Date End Date Lolly Oliveira MD PCP - General 07/17/13 [address] [place] [address] documented as of this encounter
--- OUTSIDE RECORDS SUMMARY | 2022-01-28 10:07 | XMS_ITS | Encounter Summary ---
:1950 Author Organization [facility] [place] [address] Care Team Providers Name Role Phone Lolly Oliveira MD Primary Care Provider Encounter Details Date Type Department Care Team Description 07/26/2013 Hospital Mammography at [facility] Mammographic Encounter [facility] Lolly Oliveira MD [address] [place] [address] [place] [address] Social History Tobacco Use Types [...] Organization Address City/State/[place] [address] LEX BURRISMESI documented in this encounter Visit Diagnoses Diagnosis [...] Routine documented in this encounter Care Teams Squeegee Tender Relationship Specialty Start Date End Date Lolly Oliveira MD PCP - General 07/17/13 [address] [place] [address] documented as of this encounter
--- OUTSIDE RECORDS SUMMARY | 2022-01-28 10:07 | XMS_ITS | Encounter Summary ---
:1950 Author Organization [facility] Address [address] [place] [address] Care Team Providers Name Role Phone Unavailable Primary Care Provider Unavailable Encounter Details Date Type Department Care Team Description 11/07/2008 Orders Only [facility] Kenneth Krishnan MD Laboratory Services - [address] [place] [address] [place] [address] [phone] Social History Tobacco Use Types Packs/Day Years Used Date Smoking Tobacco: Never Assessed Sex Assigned at Date Recorded Not on file documented as of this encounter Plan of Treatment Not on filedocumented as of this encounter Procedures Procedure Name Priority Date/Time Associated Diagnosis Comme [facility] SURGICAL PATHOLOGY Routine 11/07/2008 0:00 EDT Re sults for this procedure are i n the results section. documented in this encounter Results SURGICAL PATHOLOGY (11/07/2008 0:00 EDT) Component Value Ref Test Analysis Performed At [facility] Method Time Signature Pathology SURGICAL PATHOLOGY REPORT ? J LUIS HER Report: Reports generated via electr [employer] interface contain original data; ? LIBBY BLANCO however they are lacking the format of the original report. ? Caution should be taken when reading/interpreting unformatted reports. ? Name: ? LYLE, JING ? Accession #: ? [id number] ? : ? 1950 (Age: 58) ??F [...] e Number [facility] [address] [place] [address] SERVICES [facility] [address] [place] [address] documented in this encounter Visit Diagnoses Not on filedocumented in this encounter
--- OUTSIDE RECORDS SUMMARY | 2022-01-28 10:07 | XMS_ITS | Encounter Summary ---
:1950 Author Organization [facility] Address [address] [place] [address] Care Team Providers Name Role Phone Lolly Oliveira MD Primary Care Provider Encounter Details Date Type Department Care Team Description 05/02/2004 Results Only [facility] - Lolly Mendoza MD conversion 201 [facility] [address] [place], [place] [address] [place] [id number] [phone] Social History Tobacco Use Types Packs/Day Years [...] PAPILLOMA VIRUS DNA TEST (05/02/2004 9:32 EST) [facility] Method Time Signature Specimen Cervix, BERNARDO Description ThinPrep [facility] vial Result Negative for TOVA HPV types [facility] 16, 18, 31, 33, 35, 39, 45, 51, 52, 56, 58, 59, and 68. Report Status Final [facility] [id number] [facility] Specimen Anatomical Collection Method Collection Time Receive d Time (Source) Location / / Volume Laterality 05/02/2004 9:32 05/10/2004 9 :32 EST EST Lolly Oliveira MD MICROBIOLOGY - GENERAL ORDER LOREN Performing Organization Address City/State/ZIP Code Phon e Number [facility] [address] [place] [address] SERVICES [facility] [address] [place] [address] CYTOPATHOLOGY (05/02/2004 0:00 EST) Component Value Ref Test Analysis Performed At [facility] Range Method Time Signature Pathology CYTOPATHOLOGY [...] e Number [facility] [address] [place] [address] SERVICES [facility] [address] [place] [address] documented in this encounter Visit Diagnoses Not on filedocumented in this encounter Care Teams Pulvi Mixer Operator Relationship Specialty Start Date End Date Lolly Oliveira MD PCP - General 11/13/08 [address] [place] [address] documented as of this encounter
--- OUTSIDE RECORDS SUMMARY | 2022-01-28 10:07 | XMS_ITS | Encounter Summary ---
:1950 Author Organization [facility] Address [address] [place] [address] Care Team Providers Name Role Phone Lolly Oliveira MD Primary Care Provider Encounter Details Date Type Department Care Team Description 03/06/2003 Results Only [facility] - Lolly Mendoza MD conversion 201 [facility] [address] [place], [place] [address] [place] [address] [phone] Social History Tobacco Use Types Packs/Day Years [...] Component Value Ref Test Analysis Performed At [facility] Method Time Signature Pathology [...] [facility] [address] [place] [address] SERVICES [facility] [address] [place] [address] documented in this encounter Visit Diagnoses Not on filedocumented in this encounter Care Teams Rubber Calender Helper Relationship Specialty Start Date End Date Lolly Oliveira MD PCP - General 11/13/08 [address] [place] [address] documented as of this encounter
--- OUTSIDE RECORDS SUMMARY | 2022-01-28 10:08 | XMS_ITS | Encounter Summary ---
:1950 Author Organization [facility] [place] [address] Care Team Providers Name Role Phone Lolly Oliveira MD Primary Care Provider Encounter Details Date Type Department Care Team Description 07/18/2013 Orders Only Radiology Alia Fraire, Mammographic [facility] microcalcification ([address] Drive [facility]) [facility] [address] DIAGNOSTIC [phone] [place] [address] Social History Tobacco Use Types Packs/Day Years [...] are present on specimen digital X-ray. A [employer] Eviva-Stereo 13 Cylinder marker clip was placed. [...] are present on specimen digital X-ray. A RallyCaus[employer] Eviva-Stereo 13 Cylinder marker clip was placed. [...] does not layer and, therefore, are not new accounts banking representative of milk of calcium. Again , [...] does not layer and, therefore, are not new accounts banking representative of milk of calcium. Again , these have an amorphous and punctate appearance and remain indeterminate. Malcolm reotactic guided biopsy is recommended. Alia Fraire MD IMG MAMMO ORDERABLES documented in this encounter Visit Diagnoses Diagnosis Mammographic microcalcification - Primar y Mammographic microcalcification Mammographic microcalcification Mammographic microcalcification Mammographic microcalcification documented in this encounter Care Teams Steel Layout Worker Relationship Specialty Start Date End Date Lolly Oliveira MD PCP - General 07/17/13 [address] [place] [address] documented as of this encounter
--- OUTSIDE RECORDS SUMMARY | 2022-01-28 10:08 | XMS_ITS | Encounter Summary ---
:1950 Author Organization [facility] [place] [address] Care Team Providers Name Role Phone Lolly Oliveira MD Primary Care Provider Encounter Details Date Type Department Care Team Description 07/20/2013 Hospital Mammography at [facility] Mammographic Encounter [facility] Lolly Oliveira MD [address] [place] [address] [place] [address] Social History Tobacco Use Types [...] does not layer and, therefore, are not community representative of milk of calcium. Again , [...] does not layer and, therefore, are not community representative of milk of calcium. Again , these have an amorphous and punctate appearance and remain indeterminate. Malcolm reotactic guided biopsy is recommended. Alia Fraire MD IMG MAMMO ORDERABLES documented in this encounter Visit Diagnoses Diagnosis Mammographic microcalcification documented in this encounter Care Teams Primary Operator Relationship Specialty Start Date End Date Lolly Oliveira MD PCP - General 07/17/13 [address] [place] [address] documented as of this encounter
--- OUTSIDE RECORDS SUMMARY | 2022-01-28 10:08 | XMS_ITS | Encounter Summary ---
:1950 Author Organization [facility] [place] [address] Care Team Providers Name Role Phone Lolly Oliveira MD Primary Care Provider Encounter Details Date Type Department Care Team Description 07/17/2013 Hospital Encounter XRay at [facility] [address] [facility] [address] [place] [address] [place] [address] Social History Tobacco Use Types Packs/Day Years Used Date Smoking Tobacco: Never Assessed Sex Assigned at Date Recorded Not on file documented as of this encounter Consult Notes Provider, Hollie - 07/17/2013 7:56 AM EDT documented in this encounter Plan of Treatment Not on filedocumented as of this encounter Visit Diagnoses Not on filedocumented in this encounter Care Teams Evp Global Product Leadership Relationship Specialty Start Date End Date Lolly Oliveira MD PCP - General 07/17/13 [address] [place] [address] documented as of this encounter
--- OUTSIDE RECORDS SUMMARY | 2022-01-28 10:08 | XMS_ITS | Encounter Summary ---
:1950 Author Organization [facility] [place] [address] Care Team Providers Name Role Phone Unavailable Primary Care Provider Unavailable Encounter Details Date Type Department Care Team Description 07/14/2013 External Results XRay at [facility] Provider, [address] [place]ocha [address] Social History Tobacco Use Types Packs/Day [...]
--- OUTSIDE RECORDS SUMMARY | 2022-01-28 10:08 | XMS_ITS | Encounter Summary ---
:1950 Author Organization [facility] [place] [address] Care Team Providers Name Role Phone Lolly Oliveira MD Primary Care Provider Encounter Details Date Type Department Care Team Description 06/29/2011 Orders Only Radiology Eleno Christian MD [facility] [place] [address] DIAGNOSTIC RADIOLOGY [phone] [place] [id number] (Wo rk) Social History Tobacco Use Types [...] on filedocumented in this encounter Care Teams Assortment Planner Relationship Specialty Start Date End Date Lolly Oliveira MD PCP - General 07/17/13 [address] [place] [address] documented as of this encounter
--- OUTSIDE RECORDS SUMMARY | 2022-02-04 11:01 | XMS_ITS | Encounter Summary ---
:1950 Author Organization [facility] [place] [address] Care Team Providers Name Role Phone Lolly Oliveira MD Primary Care Provider Encounter Details Date Type Department Care Team Description 04/01/2021 Office Visit Dermatology at Clay Ramírez Psorias is, h[place] MD [address] [facility] Malcolm B DERMATOLOGY [place], [place] [address] [phone] Social History Tobacco Use Types Packs/Day Years [...] psoriasis documented in this encounter Care Teams Pricing Strategist Relationship Specialty Start Date End Date Lolly Oliveira MD PCP - General 07/17/13 [address] [place] [address] documented as of this encounter
--- OUTSIDE RECORDS SUMMARY | 2022-02-04 11:01 | XMS_ITS | Encounter Summary ---
:1950 Author Organization [facility] Address [address] [place] [address] Care Team Providers Name Role Phone Lolly Oliveira MD Primary Care Provider Encounter Details Date Type Department Care Team Description 04/17/2005 Results Only [facility] - Lolly Mendoza MD conversion 201 [facility] 111 [place], [place] [address] [place] [address] [phone] Social History Tobacco Use Types Packs/Day Years [...] Analysis Performed At [facility] Method Time Signature Pathology CYTOPATHOLOGY REPORT TOVA [...] ? ThinPrep Pap Test, Cervix/Endocervix, processed on Nano Precision MedicalPrep Imaging System, with manual evaluation Last Menstrual [...] Organization Address City/State/ZIP Code Phon e Number [facility] [address] [place] [address] SERVICES [facility] [address] [place] [address] documented in this encounter Visit Diagnoses Not on filedocumented in this encounter Care Teams Professor Of Exercise Science Relationship Specialty Start Date End Date Lolly Oliveira MD PCP - General 11/13/08 [address] [place] [address] documented as of this encounter
--- OUTSIDE RECORDS SUMMARY | 2022-02-04 11:01 | XMS_ITS | Encounter Summary ---
:1950 Author Organization [facility] Address [address] [place] [address] Care Team Providers Name Role Phone Lolly Oliveira MD Primary Care Provider Encounter Details Date Type Department Care Team Description 02/11/2021 Lab Requisition [facility] Outr Resulting Lab, Pathology & Laboratory Provider [facility] [address] [place] [address] Social History Tobacco Use Types Packs/Day [...] e Number [facility] [address] [place] [address] SERVICES COVID-19 TESTING (02/11/2021 8:00 EST) [facility] Signature COVID-19 Negative Negative 02/12/2021 [facility] MEDICAL rt-PCR Result 14:17 EST [...] using the med SA RS-CoV-2 assay (Stephanie rapt.fm System, Inc.) on the Med 6800 System Performing Lab Med 6800 [facility] 02/12/2021 14:17 E [facility] Lab LABORATORY SERVICES Specimen Anatomical Collection Method Collection Time Receive d Time (Source) Location / / Volume Laterality Swab 02/11/2021 8:00 02/11/2021 EST 22:22 EST Provider Outr Resulting Lab MICROBIOLOGY - GENERAL ORD ERABLES Performing Organization Address City/State/ZIP Code Phon e Number [facility] [address] [place] [address] SERVICES documented in this encounter Visit Diagnoses Not on filedocumented in this encounter Care Teams Bread And Pastry Baker Relationship Specialty Start Date End Date Lolly Oliveira MD PCP - General 11/13/08 [address] [place], [place] [address] documented as of this encounter
--- OUTSIDE RECORDS SUMMARY | 2022-02-04 11:01 | XMS_ITS | Encounter Summary ---
:1950 Author Organization [facility] [place] [address] Care Team Providers Name Role Phone Lolly Oliveira MD Primary Care Provider Reason for Visit Reason Comments Follow-up Encounter Details Date Type Department Care Team Description 06/06/2021 Office Visit Dermatology at [facility] Psorias ishudson MD [address] [facility] Malcolm B DERMATOLOGY [place], [place] [phone] Social History Tobacco Use Types Packs/Day Years [...] psoriasis documented in this encounter Care Teams Quarry Manager Relationship Specialty Start Date End Date Lolly Oliveira MD PCP - General 07/17/13 [address] [place] [address] documented as of this encounter
--- OUTSIDE RECORDS SUMMARY | 2022-02-04 11:01 | XMS_ITS | Encounter Summary ---
:1950 Author Organization [facility] [place] [address] Care Team Providers Name Role Phone Lolly Oliveira MD Primary Care Provider Encounter Details Date Type Department Care Team Description 07/17/2013 Orders Only Radiology Lolly Ocampo MD [facility] [address] [facility] [place] [address] [place] [address] [phone] Social History Tobacco Use Types Packs/Day Years [...] MAMMOGRAMS (PERFORMED ON 07/06/13 AND 07/14/13) FROM [facility] DATED 07/17/13: ?? DIAGNOSTIC IMAGING SUMMARY: ?? [...] (PE RFORMED ON 07/06/13 AND 07/14/13) FROM [facility] DATED 07/17/13: DIAGNOSTIC IMAGING SUMMARY: RIGHT BREAST [...] on filedocumented in this encounter Care Teams Repair Welder Relationship Specialty Start Date End Date Lolly Oliveira MD PCP - General 07/17/13 [address] [place] [address] documented as of this encounter
--- OUTSIDE RECORDS SUMMARY | 2022-02-04 11:01 | XMS_ITS | Encounter Summary ---
:1950 Author Organization [facility] [place] [address] Care Team Providers Name Role Phone Lolly Oliveira MD Primary Care Provider Encounter Details Date Type Department Care Team Description 01/14/2022 Telephone Dermatology at [facility] Nora Meredith LPN [address] [place] [address] Social History Tobacco Use [...] return to phototherapy. New order sent to [facility]. Reviewed with patient Dr. Mar recommendation. She agrees with plan of care. Advised patient order will be sent to [facility]. She voiced understanding. documented in this encounter Plan of Treatment Not on filedocumented as of this encounter Visit Diagnoses Not on filedocumented in this encounter Care Teams Asphalt Paver Operator Relationship Specialty Start Date End Date Lolly Oliveira MD PCP - General 07/17/13 [address] [place] [address] documented as of this encounter
--- OUTSIDE RECORDS SUMMARY | 2022-02-04 11:01 | XMS_ITS | Encounter Summary ---
:1950 Author Organization [facility] Address [address] [place] [address] Care Team Providers Name Role Phone Lolly Oliveira MD Primary Care Provider Encounter Details Date Type Department Care Team Description 05/27/2021 Lab Requisition [facility] Iman Moran for other Pathology & M, DO general examination Laboratory Medicine - [address] [facility] [address] [place] [phone] Social History Tobacco Use Types Packs/Day Years [...] Component Value Ref Test Analysis Performed At [facility] Range Method Time Signature Note to The following 05/30/2021 [facility] MEDICAL Patient pathology results 13:31 [facility] have been LABORATORY interpreted by SERVICES your pathologist and may be available to you before your health provider has had the opportunity to review them. Please allow time for your provider to receive these results and explore management options, if applicable. Final A. COLON, POLYP AT 90 CM, BIOPSY/POLYPECTOMY: 05/30/2021 [facility] MEDICAL Diagnosis - Tubular adenoma. 13:31 [facility] SERVICES Attestation By the signature 05/30/2021 [facility] MEDICA L Electronically below, the 13:31 [facility] signed by attending LABORATORY Pippa Mcgee physician HARRIETT Fierro MD on certifies that 2021 at they have 1) 1331 personally conducted a gross and/or microscopic examination of the described specimen(s), and/or personally interpreted the results of laboratory testing of the described specimen(s), and 2) personally rendered or confirmed the above diagnosis. Clinical Severe 05/30/2021 [facility] MEDICAL History diverticula and 13:31 [facility] polypectomy x1 LABORATORY SERVICES Gross A. 05/30/2021 [facility] MEDICAL Description Received in formalin sharmaine d with proper patient identification (initials J, K) and colon polyp x1 at 90 cm is a light pineda polypoid tissue measuring 0.2 x 0.2 x 0.2 cm. Submitted intact in A1. 13:31 [facility] LABORATORY MICKEY CRALOS(ASCP) 05/27/2021 19:11 SERVICES Performing Lab [facility] 05/30/2021 [facility] MEDIC AL LAB 13:31 [facility] LABORATORY SERVICES Scanned Images 05/30/2021 [facility] MEDICAL 13:31 [facility] LABORATORY SERVICES Specimen Anatomical Collection Method Collection Time Receive d Time (Source) Location / / Volume Laterality Tissue ENTIRE COLON / 05/27/2021 11:23 2 Unknown EDT 16:33 EDT Iman Moran DO PATHOLOGY ORDERABLES Performing Organization Address City/State/ZIP Code Phon e Number [facility] [address] [place] [address] SERVICES documented in this encounter Visit Diagnoses Diagnosis Encounter for other general examination documented in this encounter Care Teams Medical Office Administrator Relationship Specialty Start Date End Date Lolly Oliveira MD PCP - General 11/13/08 [address] [place], [place] [address] documented as of this encounter
--- OUTSIDE RECORDS SUMMARY | 2022-02-04 11:01 | XMS_ITS | Encounter Summary ---
:1950 Author Organization [facility] [place] [address] Care Team Providers Name Role Phone Lolly Oliveira MD Primary Care Provider Encounter Details Date Type Department Care Team Description 10/09/2021 Telephone Dermatology at [facility] Nora Meredith LPN [address] [place] [address] Social History Tobacco Use [...] on filedocumented in this encounter Care Teams Instrument Room Technician Relationship Specialty Start Date End Date Lolly Oliveira MD PCP - General 07/17/13 [address] [place] [address] documented as of this encounter
--- OUTSIDE RECORDS SUMMARY | 2022-02-04 11:01 | XMS_ITS | Encounter Summary ---
:1950 Author Organization [facility] [place] [address] Care Team Providers Name Role Phone Lolly Oliveira MD Primary Care Provider Encounter Details Date Type Department Care Team Description 06/29/2011 Orders Only Radiology Eleno Christian MD [facility] [place] [address] DIAGNOSTIC RADIOLOGY [phone] [place] [id number] (Wo rk) Social History Tobacco Use Types [...] on filedocumented in this encounter Care Teams Window Repairer Relationship Specialty Start Date End Date Lolly Oliveira MD PCP - General 07/17/13 [address] [place] [address] documented as of this encounter
--- OUTSIDE RECORDS SUMMARY | 2022-02-04 11:01 | XMS_ITS | Encounter Summary ---
:1950 Author Organization [facility] Address [address] [place] [address] Care Team Providers Name Role Phone Lolly Oliveira MD Primary Care Provider Encounter Details Date Type Department Care Team Description 04/25/2009 Orders Only [facility] Janice Oliveira MD Laboratory Services - [address] [place] [address] [address] [facility] [place] [address] [phone] Social History Tobacco Use Types Packs/Day Years Used Date Smoking Tobacco: Never Assessed Sex Assigned at Date Recorded Not on file documented as of this encounter Plan of Treatment Not on filedocumented as of this encounter Procedures Procedure Name Priority Date/Time Associated Diagnosis Comme [facility] CYTOPATHOLOGY Routine 04/25/2009 0:00 EST Results for this procedure are i n the results section . documented in this encounter Results CYTOPATHOLOGY (04/25/2009 0:00 EST) Component Value Ref Test Analysis Performed At [facility] Pathology CYTOPATHOLOGY REPORT ? T[facility] Report: ? [facility] Reports generated via electr onic interface contain original data; ? however they are lacking the format of the original report. ? Caution should be taken when reading/interpreting unformatted reports. ? Name: ? JING MOTT ? Accession #: ? [id number] ? : ? 1950 (Age: 58) ??F [...] Address City/State/ZIP Code Phon e Number [facility] [address] [place] [address] SERVICES [facility] [address] [place] [address] documented in this encounter Visit Diagnoses Not on filedocumented in this encounter Care Teams Biology Instructor Relationship Specialty Start Date End Date Lolly Oliveira MD PCP - General 11/13/[address] [place] [address] documented as of this encounter
--- OUTSIDE RECORDS SUMMARY | 2022-02-04 11:01 | XMS_ITS | Encounter Summary ---
:1950 Author Organization [facility] [place] [address] Care Team Providers Name Role Phone Lolly Oliveira MD Primary Care Provider Encounter Details Date Type Department Care Team Description 07/17/2013 Hospital Encounter XRay at [facility], [address] [place] [address] [place] [address] Social History Tobacco Use Types Packs/Day Years Used Date Smoking Tobacco: Never Assessed Sex Assigned at Date Recorded Not on file documented as of this encounter Consult Notes Provider, Hollie - 07/17/2013 7:56 AM EDT documented in this encounter Plan of Treatment Not on filedocumented as of this encounter Visit Diagnoses Not on filedocumented in this encounter Care Teams Field Crop I Farmworker Relationship Specialty Start Date End Date Lolly Oliveira MD PCP - General 07/17/13 [address] [place] [address] documented as of this encounter
--- OUTSIDE RECORDS SUMMARY | 2022-02-04 11:01 | XMS_ITS | Encounter Summary ---
:1950 Author Organization [facility] [place] [address] Care Team Providers Name Role Phone Lolly Oliveira MD Primary Care Provider Encounter Details Date Type Department Care Team Description 07/26/2013 Hospital Encounter Mammography at [facility] Mammographic [facility] [place] [phone] Social History Tobacco Use Types Packs/Day Years [...] microcalcification documented in this encounter Care Teams Chemical Engineering Intern Relationship Specialty Start Date End Date Lolly Oliveira MD PCP - General 07/17/13 [address] [place] [address] documented as of this encounter
--- OUTSIDE RECORDS SUMMARY | 2022-02-04 11:01 | XMS_ITS | Encounter Summary ---
:1950 Author Organization [facility] Address [address] [place] [address] Care Team Providers Name Role Phone Lolly Oliveira MD Primary Care Provider Encounter Details Date Type Department Care Team Description 03/21/2019 Lab Requisition [facility] Unknown, Provider, Pathology & Laboratory [facility] [address] [place] [address] [place] [address] Social History Tobacco Use Types Packs/Day Years [...] Signature Vitamin B12 [phone] 03/22/2019 [facility] pg/mL 11:52 [facility] LAB[facility] SERVICES Specimen Anatomical Collection Method Collection Time Receive d Time (Source) Location / / Volume Laterality Blood VENOUS BLOOD / 03/16/2019 9:25 03/21/2019 Unknown EST 21:35 EST Provider Unknown CHEMISTRY & BLOOD GAS ORDERA BLES Performing Organization Address City/State/ZIP Code Phon e Number [facility] [address] [place] [address] SERVICES documented in this encounter Visit Diagnoses Not on filedocumented in this encounter Care Teams Polystyrene Bead Molder Relationship Specialty Start Date End Date Lolly Oliveira MD PCP - General 11/13/08 [address] [place] [address] documented as of this encounter
--- OUTSIDE RECORDS SUMMARY | 2022-02-04 11:01 | XMS_ITS | Encounter Summary ---
:1950 Author Organization [facility] [place] [address] Care Team Providers Name Role Phone Lolly Oliveira MD Primary Care Provider Encounter Details Date Type Department Care Team Description 07/20/2013 Hospital Mammography at [facility], [address] Mammographic Encounter [facility] Lolly Oliveira MD [address] [place] [address] [place] [address] Social History Tobacco Use Types [...] does not layer and, therefore, are not account development representative of milk of calcium. Again , [...] does not layer and, therefore, are not account development representative of milk of calcium. Again , these have an amorphous and punctate appearance and remain indeterminate. Malcolm reotactic guided biopsy is recommended. Alia Fraire MD IMG MAMMO ORDERABLES documented in this encounter Visit Diagnoses Diagnosis Mammographic microcalcification documented in this encounter Care Teams Frame Repairer Relationship Specialty Start Date End Date Lolly Oliveira MD PCP - General 07/17/13 [address] [place] [address] documented as of this encounter
--- OUTSIDE RECORDS SUMMARY | 2022-02-04 11:01 | XMS_ITS | Encounter Summary ---
:1950 [place] [address] Care Team Providers Name Role Phone Lolly Oliveira MD Primary Care Provider Encounter Details Date Type Department Care Team Description 07/26/2013 Hospital Encounter Mammography at [facility] Mammographic [facility] [place] [phone] Social History Tobacco Use Types Packs/Day Years [...] Component Value Ref Test Analysis Performed At [facility] Method Time Signature Surgical CERNER Pathology ? [facility] Report ? Provider: ?? ELENO CHRISTIAN ?? Pt. Name: ?? JING MOTT ? Acc #: ?[id number] ?Pt. MRN: ?[id number] ? Col Date: ?? 4 ? /Sex: [...] Partially fragmented, fibrofatty needle core biopsies. ? [facility] ? Provider: ?? ELENO CHRISTIAN ?? Pt. Name: ?? JING MOTT ? Acc #: ?[id number] ?Pt. MRN: ?[id number] ? Col Date: ?? 4 ? /Sex: [...] Organization Address City/State/[place] [address] [facility] Mammo Specimen Imaging During Biopsy (07/26/2013 11:58 [...] are present on specimen digital X-ray. A MexxBooks Eviva-Stereo 13 Cylinder marker clip was placed. [...] are present on specimen digital X-ray. A PositiveIDrk Eviva-Stereo 13 Cylinder marker clip was placed. [...] microcalcification documented in this encounter Care Teams Cost Clerk Relationship Specialty Start Date End Date Lolly Oliveira MD PCP - General 07/17/13 [address] [place] [address] documented as of this encounter
--- OUTSIDE RECORDS SUMMARY | 2022-02-04 11:01 | XMS_ITS | Encounter Summary ---
:1950 Author Organization [facility] [place] [address] Care Team Providers Name Role Phone Unavailable Primary Care Provider Unavailable Encounter Details Date Type Department Care Team Description 07/14/2013 Orders Only Radiology Eleno Christian MD [facility] [place] [address] DIAGNOSTIC RADIOLOGY [phone] [place] [address] (Wo rk) Social History Tobacco Use Types Packs/Day Years Used Date Smoking Tobacco: Never Assessed Sex Assigned at Date Recorded Not on file documented as of this encounter Plan of Treatment Not on filedocumented as of this encounter Visit Diagnoses Not on filedocumented in this encounter
--- OUTSIDE RECORDS SUMMARY | 2022-02-04 11:01 | XMS_ITS | Encounter Summary ---
:1950 Author Organization [facility] [place] [address] Care Team Providers Name Role Phone Lolly Oliveira MD Primary Care Provider Encounter Details Date Type Department Care Team Description 07/18/2013 Orders Only Radiology Alia Fraire, Mammographic [facility] microcalcification (Primary Drive [facility]) [facility] [address] DIAGNOSTIC [phone] [place] [address] Social History Tobacco Use Types Packs/Day Years [...] are present on specimen digital X-ray. A FasterPantsrk Eviva-Stereo 13 Cylinder marker clip was placed. [...] are present on specimen digital X-ray. A FasterPantsrk Eviva-Stereo 13 Cylinder marker clip was placed. [...] does not layer and, therefore, are not pharmaceutical sales representative of milk of calcium. Again [...] does not layer and, therefore, are not pharmaceutical sales representative of milk of calcium. Again , these have an amorphous and punctate appearance and remain indeterminate. Malcolm reotactic guided biopsy is recommended. Alia Fraire MD IMG MAMMO ORDERABLES documented in this encounter Visit Diagnoses Diagnosis Mammographic microcalcification - Primar y Mammographic microcalcification Mammographic microcalcification Mammographic microcalcification Mammographic microcalcification documented in this encounter Care Teams Manager Hi Relationship Specialty Start Date End Date Lolly Oliveira MD PCP - General 07/17/13 [address] [place] [address] documented as of this encounter
--- OUTSIDE RECORDS SUMMARY | 2022-02-04 11:01 | XMS_ITS | Encounter Summary ---
:1950 Author Organization [facility] Address [address] [place] [address] Care Team Providers Name Role Phone Lolly Oliveira MD Primary Care Provider Encounter Details Date Type Department Care Team Description 05/29/[address] [facility] Quinn od, Silvia Blandon, MOBILE APPLICATION TESTER conversion [address] [facility] [address] [place] [phone] (Wo rk) Social History Tobacco Use Types [...] Performed At [facility] Method Time [facility] Pathology CYTOPATHOLOGY REPORT TOVA Report: [facility] [...] Receive Date: ? 05/31/2002 Provider: ?SILVIA DIEHL MOBILE APPLICATION TESTER Copy to: ? Specimen/Source: ?ThinPrep Pap Test, [...] / Laterality Volume 05/29/2002 05/31/2002 Silvia Diehl MOBILE APPLICATION TESTER PATHOLOGY ORDERABLES Performing Organization Address City/State/ZIP Code Phon e Number [facility] [address] [place] [address] SERVICES [facility] [address] [place] [address] documented in this encounter Visit Diagnoses Not on filedocumented in this encounter Care Teams Remote Sensing Scientist Relationship Specialty Start Date End Date Lolly Oliveira MD PCP - General 11/13/08 [address] [place] [address] documented as of this encounter
--- OUTSIDE RECORDS SUMMARY | 2022-02-04 11:01 | XMS_ITS | Encounter Summary ---
:1950 Author Organization [facility] [place] [address] Care Team Providers Name Role Phone Unavailable Primary Care Provider Unavailable Encounter Details Date Type Department Care Team Description 07/04/2012 Orders Only Radiology Eleno Christian MD [facility] [place] [address] DIAGNOSTIC RADIOLOGY [phone] [place], [place] [address] (Wo rk) Social History Tobacco [...]
--- OUTSIDE RECORDS SUMMARY | 2022-02-04 11:01 | XMS_ITS | Encounter Summary ---
:1950 Author Organization [facility] [place] [address] Care Team Providers Name Role Phone Lolly Oliveira MD Primary Care Provider Encounter Details Date Type Department Care Team Description 07/26/2013 Hospital Mammography at [facility], [address] Mammographic Encounter [facility] Lolly Oliveira MD [address] [place] [address] [place] [address] Social History Tobacco Use Types [...] Organization Address City/State/[place] [address] [facility] documented in this encounter Visit Diagnoses Diagnosis [...] Routine documented in this encounter Care Teams Tourist Cabin Keeper Relationship Specialty Start Date End Date Lolly Oliveira MD PCP - General 07/17/13 [address] [place] [address] documented as of this encounter
--- OUTSIDE RECORDS SUMMARY | 2022-02-04 11:01 | XMS_ITS | Encounter Summary ---
:1950 Author Organization [facility] Address [address] [place] [address] Care Team Providers Name Role Phone Unavailable Primary Care Provider Unavailable Encounter Details Date Type Department Care Team Description 11/07/2008 Orders Only [facility] Kenneth Krishnan MD Laboratory Services - [address] [place] [address] [place] [address] [phone] Social History Tobacco Use Types Packs/Day Years Used Date Smoking Tobacco: Never Assessed Sex Assigned at Date Recorded Not on file documented as of this encounter Plan of Treatment Not on filedocumented as of this encounter Procedures Procedure Name Priority Date/Time Associated Diagnosis Comme [facility] SURGICAL PATHOLOGY Routine 11/07/2008 0:00 EDT Re sults for this procedure are i n the results section. documented in this encounter Results SURGICAL PATHOLOGY (11/07/2008 0:00 EDT) Component Value Ref Test Analysis Performed At [facility] Method Time Signature Pathology SURGICAL PATHOLOGY REPORT ? J LUIS HER Report: Reports generated via electr Wavestream interface contain original data; ? [facility] however they are lacking the format of the original report. ? Caution should be taken when reading/interpreting unformatted reports. ? Name: ? LYLE, JING ? Accession #: ? [id number] ? : ? 1950 (Age: 58) ??F [...] City/State/ZIP Code Phon e Number [facility] [address] [place] [address] SERVICES [facility] [address] [place] [address] documented in this encounter Visit Diagnoses Not on filedocumented in this encounter
--- OUTSIDE RECORDS SUMMARY | 2022-02-04 11:01 | XMS_ITS | Encounter Summary ---
:1950 Author Organization [facility] [place] [address] Care Team Providers Name Role Phone Lolly Oliveira MD Primary Care Provider Encounter Details Date Type Department Care Team Description 07/26/2013 Orders Only Radiology Eleno Christian MD [facility] [place] [address] DIAGNOSTIC RADIOLOGY [phone] [place] [address] (Wo rk) Social History Tobacco Use Types [...] on filedocumented in this encounter Care Teams Dinkey Engineer Relationship Specialty Start Date End Date Lolly Oliveira MD PCP - General 07/17/13 [address] [place] [address] documented as of this encounter
--- OUTSIDE RECORDS SUMMARY | 2022-02-04 11:01 | XMS_ITS | Encounter Summary ---
:1950 Author Organization [facility] Address [address] [place] [address] Care Team Providers Name Role Phone Lolly Oliveira MD Primary Care Provider Encounter Details Date Type Department Care Team Description 11/13/2020 Lab Requisition [facility] Outr Resulting Lab, Pathology & Laboratory Provider [facility] [address] [place] [address] Social History Tobacco Use Types Packs/Day Years Used Date Smoking Tobacco: Never Assessed Sex Assigned at Date Recorded Not on file documented as of this encounter Plan of Treatment Not on filedocumented as of this encounter Procedures Procedure Name Priority Date/Time Associated Diagnosis Comme nts COVID[facility]19 [facility] 11/13/2020 7:30 EDT LAB PCR COVID-19 TESTING Routine 11/13/2020 7:30 EDT Resu lts for this procedure are i n the results section. documented in this encounter Results COVID-19 TEST [facility] LAB PCR (11/13/2020 7:30 EDT) Specimen Anatomical Location Collection Method Collection Time Received Time (Source) / Laterality / Volume Swab ENTIRE NASOPHARYNX 11/13/2020 7:30 2020 / Unknown EDT 20:57 EDT Provider Outr Resulting Lab MICROBIOLOGY - GENERAL ORD ERABLES Performing Organization Address City/State/ZIP Code Phon e Number [facility] [address] [place] [address] SERVICES COVID-19 TESTING (11/13/2020 7:30 EDT) Analysis Performed At Patho logist Time Signature COVID-19 Negative Negative 11/14/2020 [facility] MEDICAL rt-PCR Result 11:46 EDT CENTER [...] using the med SA RS-CoV-2 assay ([employer] on the Med 6800 System Performing Lab Med [address] [facility] 11/14/2020 11:46 E DT [facility] LABORATORY SERVICES Specimen Anatomical Collection Method Collection Time Receive d Time (Source) Location / / Volume Laterality Swab 11/13/2020 7:30 11/13/2020 EDT 20:57 EDT Provider Outr Resulting Lab MICROBIOLOGY - GENERAL ORD ERABLES Performing Organization Address City/State/ZIP Code Phon e Number [facility] [address] [place] [address] SERVICES documented in this encounter Visit Diagnoses Not on filedocumented in this encounter Care Teams Head Batcher Relationship Specialty Start Date End Date Lolly Oliveira MD PCP - General 11/13/08 [address] [place], [place] [address] documented as of this encounter
--- OUTSIDE RECORDS SUMMARY | 2022-02-04 11:01 | XMS_ITS | Encounter Summary ---
:1950 Author Organization [facility] Address [address] [place] [address] Care Team Providers Name Role Phone Lolly Oliveira MD Primary Care Provider Encounter Details Date Type Department Care Team Description 04/12/2007 Results Only [facility] - Lolly Mendoza MD conversion 201 [facility] [address] [place], [place] [address] [place] [address] [phone] Social History Tobacco Use Types Packs/Day Years [...] Component Value Ref Test Analysis Performed At [facility] Method Time Signature Pathology CYTOPATHOLOGY REPORT [...] ? ThinPrep Pap Test, Cervix/Endocervix, processed on [employer] ThinPrep Imaging System, with manual evaluation Last [...] and electronically signed by: ? Anahy Kelly, [facility](ASCP) ? Report Date: ??04/18/2007 12:31 End of Report Specimen (Source) Anatomical Location Collection Method / Collectio n Time Received Time / Laterality Volume 04/12/2007 04/13/2007 Lolly Oliveira MD PATHOLOGY ORDERABLES Performing Organization Address City/State/ZIP Code Phon e Number [facility] [address] [place] [address] SERVICES [facility] [address] [place] [address] documented in this encounter Visit Diagnoses Not on filedocumented in this encounter Care Teams Yarn Handler Relationship Specialty Start Date End Date Lolly Oliveira MD PCP - General 11/13/08 [address] [place], [place] [address] documented as of this encounter
--- OUTSIDE RECORDS SUMMARY | 2022-02-04 11:01 | XMS_ITS | Clinical Summary ---
:[address] [facility] Address [address] [place] [address] Care Team Providers Name Role Phone Lolly [...] / Group Dates BC[place] BLUE [id number] 2021-Pres [phone] [address] Medicare MEDICARE ADVANTAGE ent [phone] [id number] [place] [address] Care Teams Silver Wrapper Relationship Specialty Start Date End Date Lolly Oliveira MD PCP - General 11/13/08 [address] [place] [address]
--- OUTSIDE RECORDS SUMMARY | 2022-02-04 11:01 | XMS_ITS | Encounter Summary ---
:1950 Author Organization [facility] Address [address] [place] [address] Care Team Providers Name Role Phone Lolly Oliveira MD Primary Care Provider Encounter Details Date Type Department Care Team Description 05/02/2004 Results Only [facility] - Lolly Mendoza MD conversion [address] [facility] [address] [place], [place] [address] [place] [id number] [phone] Social History Tobacco Use Types Packs/Day Years [...] PAPILLOMA VIRUS DNA TEST (05/02/2004 9:32 EST) [facility] Method Time Signature Specimen Cervix, BERNARDO Description ThinPrep [facility] vial Result Negative for [facility] HPV types [facility] 16, 18, 31, 33, 35, 39, 45, 51, 52, 56, 58, 59, and 68. Report Status Final [facility] [id number] [facility] Specimen Anatomical Collection Method Collection Time Receive d Time (Source) Location / / Volume Laterality 05/02/2004 9:32 05/10/2004 9 :32 EST EST Lolly Oliveira MD MICROBIOLOGY - GENERAL ORDER LOREN Performing Organization Address City/State/ZIP Code Phon e Number [facility] [address] [place] [address] SERVICES [facility] [address] [place] [address] CYTOPATHOLOGY (05/02/2004 0:00 EST) Component Value Ref Test Analysis Performed At [facility] Range Method Time Signature Pathology CYTOPATHOLOGY [...] Organization Address City/State/ZIP Code Phon e Number [facility] [address] [place] [address] SERVICES [facility] [address] [place] [address] documented in this encounter Visit Diagnoses Not on filedocumented in this encounter Care Teams French Tutor Relationship Specialty Start Date End Date Lolly Oliveira MD PCP - General 11/13/08 [address] [place] [address] documented as of this encounter
--- OUTSIDE RECORDS SUMMARY | 2022-02-04 11:01 | XMS_ITS | Encounter Summary ---
:1950 Author Organization [facility] Address [address] [place] [address] Care Team Providers Name Role Phone Lolly Oliveira MD Primary Care Provider Encounter Details Date Type Department Care Team Description 04/01/2005 Results Only [facility] - Blair Comer MD conversion [address] [place] [address] [place] [address] [phone] Social History Tobacco Use Types Packs/Day Years Used Date Smoking Tobacco: Never Assessed Sex Assigned at Date Recorded Not on file documented as of this encounter Plan of Treatment Not on filedocumented as of this encounter Procedures Procedure Name Priority Date/Time Associated Diagnosis Comme [facility] SURGICAL PATHOLOGY Routine 04/01/2005 0:00 EST Re sults for this procedure are i n the results section. documented in this encounter Results SURGICAL PATHOLOGY (04/01/2005 0:00 EST) Component Value Ref Test Analysis Performed At [facility] Method Time Signature Pathology SURGICAL PATHOLOGY REPORT FRANSISCO BORGES Report: Reports generated via electronic interface contain origina l data; LIBBY BLANCO however they are lacking the format of the original report. Caution should be taken when reading/interpreting unformatte d reports. Name: ? JING MOTT ? Accession #: ? [id number] ? : ? 1950 (Age: 54) ??F [...] tissue, submitted intact as ( B). ??(Dr. Lechuga)/[facility] End of Report Specimen (Source) Anatomical Collection Method Collection Time Re ceived Time Location / / Volume Laterality 04/01/2005 04/02/2005 15:2 4 EST Blair Dukes MD PATHOLOGY ORDERABLES Performing Organization Address City/State/ZIP Code Phon e Number [facility] [address] [place] [address] SERVICES [facility] [address] [place] [address] documented in this encounter Visit Diagnoses Not on filedocumented in this encounter Care Teams Sales Solutions Associate Relationship Specialty Start Date End Date Lolly Oliveira MD PCP - General 11/13/08 [address] [place] [address] documented as of this encounter
== END 2022-02-04 23:59 | disposition home or self-care (01) ==
LOC: CR 09:00
PROVIDERS: PCP Family Medicine; Referring Provider Family Medicine; Visit Provider Internal Medicine Cardiovascular Disease
DX: I42.9 Cardiomyopathy, unspecified (principal); Z51.89 Encounter for other specified aftercare
CPT/HCPCS: S9472

== ENCOUNTER 2022-02-09 08:03 | Outpatient (CLI) | payer MEDICARE, SELFPAY | END 2022-02-09 08:04 | disposition home or self-care (01) | LOC: PUVA 08:03 | PROVIDERS: PCP Family Medicine; Visit Provider Dermatology | DX: L40.4 Guttate psoriasis (principal) | CPT/HCPCS: 96900 ==

== ENCOUNTER 2022-02-10 08:37 | Outpatient (CLI) | payer MEDICARE, SELFPAY | END 2022-02-10 08:38 | disposition home or self-care (01) | LOC: PUVA 08:37 | PROVIDERS: PCP Family Medicine; Visit Provider Dermatology | DX: L40.4 Guttate psoriasis (principal) | CPT/HCPCS: 96900 ==

== ENCOUNTER 2022-02-13 08:36 | Outpatient (CLI) | payer MEDICARE, SELFPAY | END 2022-02-13 08:37 | disposition home or self-care (01) | LOC: PUVA 08:36 | PROVIDERS: PCP Family Medicine; Visit Provider Dermatology | DX: L40.4 Guttate psoriasis (principal) | CPT/HCPCS: 96900 ==

== ENCOUNTER 2022-02-16 08:39 | Outpatient (CLI) | payer MEDICARE, SELFPAY | END 2022-02-16 08:40 | disposition home or self-care (01) | LOC: PUVA 08:39 | PROVIDERS: PCP Family Medicine; Visit Provider Dermatology | DX: L40.4 Guttate psoriasis (principal) | CPT/HCPCS: 96900 ==

== ENCOUNTER 2022-02-23 07:59 | Outpatient (CLI) | payer MEDICARE, SELFPAY | END 2022-02-23 08:00 | disposition home or self-care (01) | LOC: PUVA 07:59 | PROVIDERS: PCP Family Medicine; Visit Provider Dermatology | DX: L40.4 Guttate psoriasis (principal) | CPT/HCPCS: 96900 ==

== ENCOUNTER 2022-02-24 07:39 | Outpatient (CLI) | payer MEDICARE, SELFPAY | END 2022-02-24 07:40 | disposition home or self-care (01) | LOC: PUVA 07:39 | PROVIDERS: PCP Family Medicine; Visit Provider Dermatology | DX: L40.4 Guttate psoriasis (principal) | CPT/HCPCS: 96900 ==

== ENCOUNTER 2022-02-27 09:07 | Outpatient (CLI) | payer MEDICARE, SELFPAY | END 2022-02-27 09:08 | disposition home or self-care (01) | LOC: PUVA 09:07 | PROVIDERS: PCP Family Medicine; Visit Provider Dermatology | DX: L40.4 Guttate psoriasis (principal) | CPT/HCPCS: 96900 ==

== ENCOUNTER 2022-03-03 08:23 | Outpatient (CLI) | payer MEDICARE, SELFPAY | END 2022-03-03 08:24 | disposition home or self-care (01) | LOC: PUVA 08:23 | PROVIDERS: PCP Family Medicine; Visit Provider Dermatology | DX: L40.4 Guttate psoriasis (principal) | CPT/HCPCS: 96900 ==

== ENCOUNTER 2022-03-06 09:50 | Outpatient (RCR) | payer MEDICARE, SELFPAY ==
--- OUTSIDE RECORDS SUMMARY | 2022-02-06 09:04 | XMS_ITS | Encounter Summary ---
:1950 Author Organization [facility] [place] [address] Care Team Providers Name Role Phone Lolly Oliveira MD Primary Care Provider Encounter Details Date Type Department Care Team Description 06/29/2011 Orders Only Radiology Eleno Christian MD [facility] [place] [address] DIAGNOSTIC RADIOLOGY [phone] [place] [id number] (Wo rk) Social History Tobacco Use Types [...] on filedocumented in this encounter Care Teams Production Utility Worker Relationship Specialty Start Date End Date Lolly Oliveira MD PCP - General 07/17/13 [address] [place] [address] documented as of this encounter
--- OUTSIDE RECORDS SUMMARY | 2022-02-06 09:04 | XMS_ITS | Encounter Summary ---
:1950 Author Organization [facility] [place] [address] Care Team Providers Name Role Phone Lolly Oliveira MD Primary Care Provider Encounter Details Date Type Department Care Team Description 07/26/2013 Hospital Encounter Mammography at [facility] Mammographic [facility] [place] [id number] Social History Tobacco Use Types Packs/Day Years [...] microcalcification documented in this encounter Care Teams Card Placer Relationship Specialty Start Date End Date Lolly Oliveira MD PCP - General 07/17/13 [address] [place] [address] documented as of this encounter
--- OUTSIDE RECORDS SUMMARY | 2022-02-06 09:04 | XMS_ITS | Encounter Summary ---
:1950 Author Organization [facility] [place] [address] Care Team Providers Name Role Phone Lolly Oliveira MD Primary Care Provider Encounter Details Date Type Department Care Team Description 07/17/2013 Hospital Encounter XRay at [facility], DR [address] [place] [address] [place] [phone] Social History Tobacco Use Types Packs/Day Years Used Date Smoking Tobacco: Never Assessed Sex Assigned at Date Recorded Not on file documented as of this encounter Consult Notes Provider, Hollie - 07/17/2013 7:56 AM EDT documented in this encounter Plan of Treatment Not on filedocumented as of this encounter Visit Diagnoses Not on filedocumented in this encounter Care Teams Pediatric Critical Care Nurse Relationship Specialty Start Date End Date Lolly Oliveira MD PCP - General 07/17/13 [address] [place] [address] documented as of this encounter
--- OUTSIDE RECORDS SUMMARY | 2022-02-06 09:04 | XMS_ITS | Encounter Summary ---
:[address] [facility] Address [address] [place] [address] Care Team Providers Name Role Phone Lolly Oliveira MD Primary Care Provider Encounter Details Date Type Department Care Team Description 03/06/2003 Results Only [facility] - Lolly Mendoza MD conversion 201 [facility] 111 [place], [place] [address] [place] [address] [phone] Social History Tobacco Use Types Packs/Day Years [...] Ref Test Analysis Performed At [facility] Method Time Signature Pathology CYTOPATHOLOGY REPORT TOVA [...] City/State/ZIP Code Phon e Number [facility] [address] [place] [address] SERVICES [facility] [address] [place] [address] documented in this encounter Visit Diagnoses Not on filedocumented in this encounter Care Teams Welder Production Line Gas Relationship Specialty Start Date End Date Lolly Oliveira MD PCP - General 11/13/08 [address] [place] [address] documented as of this encounter
--- OUTSIDE RECORDS SUMMARY | 2022-02-06 09:04 | XMS_ITS | Encounter Summary ---
:1950 Author Organization [facility] [place] [address] Care Team Providers Name Role Phone Lolly Oliveira MD Primary Care Provider Encounter Details Date Type Department Care Team Description 04/01/2021 Office Visit Dermatology at Clay Ramírez Psorias is, [place] MD [address] [facility] Malcolm B DERMATOLOGY [place], [place] [address] [phone] Social History Tobacco Use Types Packs/Day Years [...] psoriasis documented in this encounter Care Teams Business Relations Manager Relationship Specialty Start Date End Date Lolly Oliveira MD PCP - General 07/17/13 [address] [place] [address] documented as of this encounter
--- OUTSIDE RECORDS SUMMARY | 2022-02-06 09:04 | XMS_ITS | Encounter Summary ---
:1950 [address] [facility] [place] [address] Care Team Providers Name Role Phone Lolly Oliveira MD Primary Care Provider Encounter Details Date Type Department Care Team Description 07/26/2013 Orders Only Radiology Eleno Christian MD [facility] [place] [address] DIAGNOSTIC RADIOLOGY [phone] [place] [id number] (Wo rk) Social History Tobacco Use Types [...] on filedocumented in this encounter Care Teams Prop Drawer Relationship Specialty Start Date End Date Lolly Oliveira MD PCP - General 07/17/13 [address] [place] [address] documented as of this encounter
--- OUTSIDE RECORDS SUMMARY | 2022-02-06 09:04 | XMS_ITS | Encounter Summary ---
:1950 Author Organization [facility] [place] [address] Care Team Providers Name Role Phone Lolly Oliveira MD Primary Care Provider Encounter Details Date Type Department Care Team Description 07/17/2013 Orders Only Radiology Lolly Ocampo MD [facility] [address] [facility] [place] [address] [place] [address] [phone] Social History Tobacco Use Types Packs/Day Years [...] MAMMOGRAMS (PERFORMED ON 07/06/13 AND 07/14/13) FROM [facility] D[facility] 07/17/13: ?? DIAGNOSTIC IMAGING SUMMARY: [...] (PE RFORMED ON 07/06/13 AND 07/14/13) FROM [facility] DATED 07/17/13: DIAGNOSTIC IMAGING SUMMARY: RIGHT [...] on filedocumented in this encounter Care Teams Instrumentation Instructor Relationship Specialty Start Date End Date Lolly Oliveira MD PCP - General 07/17/13 [address] [place] [address] documented as of this encounter
--- OUTSIDE RECORDS SUMMARY | 2022-02-06 09:04 | XMS_ITS | Encounter Summary ---
:1950 Author Organization [facility] Address [address] [place] [address] Care Team Providers Name Role Phone Lolly Oliveira MD Primary Care Provider Encounter Details Date Type Department Care Team Description 04/01/2005 Results Only [facility] - Blair Comer MD conversion [address] [place] [id number] [place] [address] [phone] Social History Tobacco Use Types Packs/Day Years [...] Test Analysis Performed At [facility] Method Time Signature Pathology SURGICAL PATHOLOGY REPORT FRANSISCO BORGES Report: Reports generated via electronic interface contain origina l data; LIBBY BLANCO however they are lacking the format of the original report. Caution should be taken when reading/interpreting unformatte d reports. Name: ? JING MOTT ? Accession #: ? [id number] ? : ? 1950 (Age: 54) ??F [...] tissue, submitted intact as ( B). ??(Dr. Lechuga)/[facility] End of Report Specimen (Source) Anatomical Collection Method Collection Time Re ceived Time Location / / Volume Laterality 04/01/2005 04/02/2005 15:2 4 EST Blair Dukes MD PATHOLOGY ORDERABLES Performing Organization Address City/State/ZIP Code Phon e Number [facility] [address] [place] [address] SERVICES [facility] [address] [place] [address] documented in this encounter Visit Diagnoses Not on filedocumented in this encounter Care Teams Cleaning Machine Operator Relationship Specialty Start Date End Date Lolly Oliveira MD PCP - General 11/13/08 [address] [place] [address] documented as of this encounter
--- OUTSIDE RECORDS SUMMARY | 2022-02-06 09:04 | XMS_ITS | Encounter Summary ---
:1950 Author Organization [facility] [place] [address] Care Team Providers Name Role Phone Lolly Oliveira MD Primary Care Provider Reason for Visit Reason Comments Skin Check Encounter Details Date Type Department Care Team Description 11/23/2014 Office Visit Dermatology at Clay Ramírez MD Dermatofibroma; [place] [address] [place]; [address] Malcolm DERMATOL [place] [address] [place], [place] [phone] (Wo rk) [address] [phone] Social History Tobacco Use Types Packs/Day Years [...] dyschromia documented in this encounter Care Teams Food Safety Officer Relationship Specialty Start Date End Date Lolly Oliveira MD PCP - General 07/17/13 [address] [place] [address] documented as of this encounter
--- OUTSIDE RECORDS SUMMARY | 2022-02-06 09:04 | XMS_ITS | Encounter Summary ---
:1950 Author Organization [facility] Address [address] [place] [address] Care Team Providers Name Role Phone Unavailable Primary Care Provider Unavailable Encounter Details Date Type Department Care Team Description 11/07/2008 Orders Only [facility] Kenneth Krishnan MD Laboratory Services - [address] [place] [address] [place] [address] [phone] Social History Tobacco Use Types Packs/Day Years Used Date Smoking Tobacco: Never Assessed Sex Assigned at Date Recorded Not on file documented as of this encounter Plan of Treatment Not on filedocumented as of this encounter Procedures Procedure Name Priority Date/Time Associated Diagnosis Comme [facility] SURGICAL PATHOLOGY Routine 11/07/2008 0:00 EDT Re sults for this procedure are i n the results section. documented in this encounter Results SURGICAL PATHOLOGY (11/07/2008 0:00 EDT) Component Value Ref Test Analysis Performed At [facility] Method Time Signature Pathology SURGICAL PATHOLOGY REPORT ? J LUIS HER Report: Reports generated via electr Mis [employer] interface contain original data; ? LIBBY BLANCO however they are lacking the format of the original report. ? Caution should be taken when reading/interpreting unformatted reports. ? Name: ? LYLE, JING ? Accession #: ? [id number] ? : ? 1950 (Age: 58) ??F [...] e Number [facility] [address] [place] [address] SERVICES [facility] [address] [place] [address] documented in this encounter Visit Diagnoses Not on filedocumented in this encounter
--- OUTSIDE RECORDS SUMMARY | 2022-02-06 09:04 | XMS_ITS | Encounter Summary ---
:1950 Author Organization [facility] Address [address] [place] [address] Care Team Providers Name Role Phone Lolly Oliveira MD Primary Care Provider Encounter Details Date Type Department Care Team Description 02/20/2020 Lab Requisition [facility] Outr Resulting Lab, Pathology & Laboratory Provider [facility] [address] [place] [address] Social History Tobacco Use Types [...] TEST (02/19/2020 16:30 EST) Analysis Performed At [facility] Time Signature COVID-19 NEGATIVE Negative 02/22/2020 BROAD [...] Address City/State/ZIP Code Phon e Number [facility] [place], [place] COVID-19 TESTING (02/19/2020 16:30 EST) Analysis Performed At [facility] Time Signature COVID-19 NEGATIVE Negative 02/22/2020 BROAD [...] Administration's Emergency Use Authorization. Performing Lab [facility] 02/22/2020 23:4 1 EST [facility] SERVICES Specimen Anatomical Collection Method Collection Time Receive d Time (Source) Location / / Volume Laterality Swab 02/19/2020 16:30 02/20/2020 EST 16:09 EST Provider Outr Resulting Lab MICROBIOLOGY - GENERAL ORD ERABLES Performing Organization Address City/State/ZIP Code Phon e Number [facility] [address] [place] [address] SERVICES [facility] [place], [place] documented in this encounter Visit Diagnoses Not on filedocumented in this encounter Care Teams Recording Studio Intern Relationship Specialty Start Date End Date Lolly Oliveira MD PCP - General 11/13/08 [address] [place] [address] documented as of this encounter
--- OUTSIDE RECORDS SUMMARY | 2022-02-06 09:04 | XMS_ITS | Encounter Summary ---
:1950 [place] [address] Care Team Providers Name Role Phone Lolly Oliveira MD Primary Care Provider Encounter Details Date Type Department Care Team Description 07/26/2013 Hospital Encounter Mammography at [facility] Mammographic [facility] [place] [id number] Social History Tobacco Use Types Packs/Day Years [...] At [facility] Method Time Signature Surgical CERNER Pathology ? [facility] Report ? Provider: ?? ELENO CHRISTIAN ?? Pt. Name: ?? JING MOTT ? Acc #: ?[id number] ?Pt. MRN: ?[id number] ? Col Date: ?? 4 ? /Sex: [...] fragmented, fibrofatty needle core biopsies. ? [facility] ? Provider: ?? ELENO CHRISTIAN ?? Pt. Name: ?? JING MOTT ? Acc #: ?[id number] ?Pt. MRN: ?[id number] ? Col Date: ?? 4 ? /Sex: [...] Organization Address City/State/[place] [address] [email or web address] [email or web address] Specimen Imaging During Biopsy (07/26/2013 11:58 [...] are present on specimen digital X-ray. A [employer] Eviva-Stereo 13 Cylinder marker clip was placed. [...] are present on specimen digital X-ray. A [employer] Eviva-Stereo 13 Cylinder marker clip was placed. [...] microcalcification documented in this encounter Care Teams Beading Machine Operator Relationship Specialty Start Date End Date Lolly Oliveira MD PCP - General 07/17/13 [address] [place] [address] documented as of this encounter
--- OUTSIDE RECORDS SUMMARY | 2022-02-06 09:04 | XMS_ITS | Encounter Summary ---
:1950 Author Organization [facility] Address [address] [place] [address] Care Team Providers Name Role Phone Lolly Oliveira MD Primary Care Provider Encounter Details Date Type Department Care Team Description 05/27/2021 Lab Requisition [facility] Iman Moran for other Pathology & M, DO general examination Laboratory Medicine - [address] [facility] [address] [place] [phone] Social History Tobacco Use Types Packs/Day Years [...] Component Value Ref Test Analysis Performed At [facility] Range Method Time Signature Note to The following 05/30/2021 [facility] Patient pathology results 13:31 [facility] have been LABORATORY interpreted by SERVICES your pathologist and may be available to you before your health provider has had the opportunity to review them. Please allow time for your provider to receive these results and explore management options, if applicable. Final A. COLON, POLYP AT 90 CM, BIOPSY/POLYPECTOMY: 05/30/2021 [facility] Diagnosis - Tubular adenoma. 13:31 [facility] SERVICES Attestation By the signature 05/30/2021 [facility] Electronically below, the 13:31 [facility] signed by attending LABORATORY Pippa Mcgee physician HARRIETT Fierro MD on certifies that 2021 at they have 1) 1331 personally conducted a gross and/or microscopic examination of the described specimen(s), and/or personally interpreted the results of laboratory testing of the described specimen(s), and 2) personally rendered or confirmed the above diagnosis. Clinical Severe 05/30/2021 [facility] History diverticula and 13:31 [facility] polypectomy x1 LABORATORY SERVICES Gross A. 05/30/2021 [facility] Description Received in formalin sharmaine d with proper patient identification (initials J, K) and colon polyp x1 at 90 cm is a light pineda polypoid tissue measuring 0.2 x 0.2 x 0.2 cm. Submitted intact in A1. 13:31 [facility] MICKEY CARLOS(ASCP) 05/27/2021 19:11 SERVICES Performing Lab [facility] 05/30/2021 [facility] AL LAB 13:31 [facility] SERVICES Scanned Images 05/30/2021 [facility] 13:31 [facility] SERVICES Specimen Anatomical Collection Method Collection Time Receive d Time (Source) Location / / Volume Laterality Tissue ENTIRE COLON / 05/27/2021 11:23 2 Unknown EDT 16:33 EDT Iman Moran DO PATHOLOGY ORDERABLES Performing Organization Address City/State/ZIP Code Phon e Number [facility] [address] [place] [address] SERVICES documented in this encounter Visit Diagnoses Diagnosis Encounter for other general examination documented in this encounter Care Teams Cutting Machine Tender Helper Relationship Specialty Start Date End Date Lolly Oliveira MD PCP - General 11/13/08 [address] [place], [place] [address] documented as of this encounter
--- OUTSIDE RECORDS SUMMARY | 2022-02-06 09:04 | XMS_ITS | Encounter Summary ---
:1950 Author Organization [facility] Address [address] [place] [address] Care Team Providers Name Role Phone Lolly Oliveira MD Primary Care Provider Encounter Details Date Type Department Care Team Description 03/21/2019 Lab Requisition [facility] Unknown, Provider, Pathology & Laboratory [facility] [address] [place] [address] [place] [address] Social History Tobacco Use Types Packs/Day Years [...] Signature Vitamin B12 [phone] 03/22/2019 [facility] pg/mL 11:52 EST [facility]ENTER LABORATORY SERVICES Specimen Anatomical Collection Method Collection Time Receive d Time (Source) Location / / Volume Laterality Blood VENOUS BLOOD / 03/16/2019 9:25 03/21/2019 Unknown EST 21:35 EST Provider Unknown CHEMISTRY & BLOOD GAS ORDERA BLES Performing Organization Address City/State/ZIP Code Phon e Number [facility] [address] [place] [address] SERVICES documented in this encounter Visit Diagnoses Not on filedocumented in this encounter Care Teams Inclusion Teacher Relationship Specialty Start Date End Date Lolly Oliveira MD PCP - General 11/13/08 [address] [place] [address] documented as of this encounter
--- OUTSIDE RECORDS SUMMARY | 2022-02-06 09:04 | XMS_ITS | Encounter Summary ---
:1950 Author Organization [facility] [place] [address] Care Team Providers Name Role Phone Lolly Oliveira MD Primary Care Provider Reason for Visit Reason Comments Follow-up Encounter Details Date Type Department Care Team Description 06/06/2021 Office Visit Dermatology at [facility] Psorias ishudson MD [address] [facility] Malcolm B DERMATOLOGY [place], [place] [phone] Social History Tobacco Use Types Packs/Day Years [...] psoriasis documented in this encounter Care Teams Telegraphic Typewriter Operator Relationship Specialty Start Date End Date Lolly Oliveira MD PCP - General 07/17/13 [address] [place] [address] documented as of this encounter
--- OUTSIDE RECORDS SUMMARY | 2022-02-06 09:04 | XMS_ITS | Encounter Summary ---
:1950 Author Organization [facility] Address [address] [place] [address] Care Team Providers Name Role Phone Lolly Oliveira MD Primary Care Provider Encounter Details Date Type Department Care Team Description 11/13/2020 Lab Requisition [facility] Outr Resulting Lab, Pathology & Laboratory Provider [facility] [address] [place] [address] Social History Tobacco Use Types Packs/Day Years Used Date Smoking Tobacco: Never Assessed Sex Assigned at Date Recorded Not on file documented as of this encounter Plan of Treatment Not on filedocumented as of this encounter Procedures Procedure Name Priority Date/Time Associated Diagnosis Comme nts COVID-19 TEST [facility] Today 11/13/2020 7:30 EDT LAB PCR COVID-19 TESTING Routine 11/13/2020 7:30 EDT Resu lts for this procedure are i n the results section. documented in this encounter Results COVID-19 TEST [facility] LAB PCR (11/13/2020 7:30 EDT) Specimen Anatomical Location Collection Method Collection Time Received Time (Source) / Laterality / Volume Swab ENTIRE NASOPHARYNX 11/13/2020 7:30 2020 / Unknown EDT 20:57 EDT Provider Outr Resulting Lab MICROBIOLOGY - GENERAL ORD ERABLES Performing Organization Address City/State/ZIP Code Phon e Number [facility] [address] [place] [address] SERVICES COVID-19 TESTING (11/13/2020 7:30 EDT) Analysis Performed At Patho logist Time Signature COVID-19 Negative Negative 11/14/2020 [facility] rt-PCR Result 11:46 EDT CENTER [...] using the med SA RS-CoV-2 assay (Stephanie [employer] on the Med 6800 System Performing Lab Med 68[address] [facility] 11/14/2020 11:46 E DT [facility] Lab LABORATORY SERVICES Specimen Anatomical Collection Method Collection Time Receive d Time (Source) Location / / Volume Laterality Swab 11/13/2020 7:30 11/13/2020 EDT 20:57 EDT Provider Outr Resulting Lab MICROBIOLOGY - GENERAL ORD ERABLES Performing Organization Address City/State/ZIP Code Phon e Number [facility] [address] [place] [address] SERVICES documented in this encounter Visit Diagnoses Not on filedocumented in this encounter Care Teams Wet Char Conveyor Tender Relationship Specialty Start Date End Date Lolly Oliveira MD PCP - General 11/13/08 [address] [place], [place] [address] documented as of this encounter
--- OUTSIDE RECORDS SUMMARY | 2022-02-06 09:04 | XMS_ITS | Encounter Summary ---
:1950 Author Organization [facility] Address [address] [place] [address] Care Team Providers Name Role Phone Lolly Oliveira MD Primary Care Provider Encounter Details Date Type Department Care Team Description 04/12/2007 Results Only [facility] - Lolly Mendoza MD conversion [address] [facility] [address] [place], [place] [address] [place] [address] [phone] Social History Tobacco Use Types Packs/Day Years [...] Component Value Ref Test Analysis Performed At [facility] Method Time Signature Pathology CYTOPATHOLOGY [...] ? ThinPrep Pap Test, Cervix/Endocervix, processed on Teros ThinPrep Imaging System, with manual evaluation Last [...] and electronically signed by: ? Anahy Kelly, [facility](ASCP) ? Report Date: ??04/18/2007 12:31 End of Report Specimen (Source) Anatomical Location Collection Method / Collectio n Time Received Time / Laterality Volume 04/12/2007 04/13/2007 Lolly Oliveira MD PATHOLOGY ORDERABLES Performing Organization Address City/State/ZIP Code Phon e Number [facility] [address] [place] [address] SERVICES [facility] [address] [place] [address] documented in this encounter Visit Diagnoses Not on filedocumented in this encounter Care Teams Recruitment Consultant Relationship Specialty Start Date End Date Lolly Oliveira MD PCP - General 11/13/08 [address] [place], [place] [address] documented as of this encounter
--- OUTSIDE RECORDS SUMMARY | 2022-02-06 09:04 | XMS_ITS | Encounter Summary ---
:1950 Author Organization [facility] Address [address] [place] [address] Care Team Providers Name Role Phone Lolly Oliveira MD Primary Care Provider Encounter Details Date Type Department Care Team Description 02/11/2021 Lab Requisition [facility] Outr Resulting Lab, Pathology & Laboratory Provider [facility] [address] [place] [address] Social History Tobacco Use Types Packs/Day [...] City/State/ZIP Code Phon e Number [facility] [address] [place] [address] SERVICES COVID-19 TESTING (02/11/2021 8:00 EST) [facility] Time Signature COVID-19 Negative Negative 02/12/2021 [facility] MEDICAL rt-PCR Result 14:17 EST CENTER [...] using the med SA RS-CoV-2 assay (Stephanie [employer] System[employer] on the Med 6800 System Performing Lab Med 6800 [facility] 02/12/2021 14:17 E [facility] Lab LABORATORY SERVICES Specimen Anatomical Collection Method Collection Time Receive d Time (Source) Location / / Volume Laterality Swab 02/11/2021 8:00 02/11/2021 EST 22:22 EST Provider Outr Resulting Lab MICROBIOLOGY - GENERAL ORD ERABLES Performing Organization Address City/State/ZIP Code Phon e Number [facility] [address] [place] [address] SERVICES documented in this encounter Visit Diagnoses Not on filedocumented in this encounter Care Teams Blanking Press Operator Relationship Specialty Start Date End Date Lolly Oliveira MD PCP - General 11/13/08 [address] [place], [place] [address] documented as of this encounter
--- OUTSIDE RECORDS SUMMARY | 2022-02-06 09:04 | XMS_ITS | Encounter Summary ---
:1950 Author Organization [facility] Address [address] [place] [address] Care Team Providers Name Role Phone Lolly Oliveira MD Primary Care Provider Encounter Details Date Type Department Care Team Description 06/16/2012 Results Only [facility] Janice Oliveira MD Laboratory Services - [address] [place] [address] [address] [facility] [place] [address] [phone] Social History Tobacco Use Types Packs/Day Years [...] [facility] [address] [place] [address] SERVICES [facility] [address] [place] [address] documented in this encounter Visit Diagnoses Not on filedocumented in this encounter Care Teams Plastic Sheeting Cutter Relationship Specialty Start Date End Date Lolly Oliveira MD PCP - General 11/13/08 [address] [place] [address] documented as of this encounter
--- OUTSIDE RECORDS SUMMARY | 2022-02-06 09:04 | XMS_ITS | Encounter Summary ---
:1950 Author Organization [facility] Address [address] [place] [address] Care Team Providers Name Role Phone Lolly Oliveira MD Primary Care Provider Encounter Details Date Type Department Care Team Description 05/29/2002 Results Only [facility] - Lyric Quinn od, Silvia Blandon, RETAIL PROPERTY MANAGER conversion [address] [facility] [address] [place] [phone] (Wo rk) Social History Tobacco Use Types [...] Component Value Ref Test Analysis Performed At [facility] Method Time [facility] Pathology CYTOPATHOLOGY REPORT [facility] Report: [facility] [...] Receive Date: ? 05/31/2002 Provider: ?SILVIA DIEHL RETAIL PROPERTY MANAGER Copy to: ? Specimen/Source: ?ThinPrep Pap Test, [...] / Laterality Volume 05/29/2002 05/31/2002 Silvia Diehl RETAIL PROPERTY MANAGER PATHOLOGY ORDERABLES Performing Organization Address City/State/ZIP Code Phon e Number [facility] [address] [place] [address] SERVICES [facility] [address] [place] [address] documented in this encounter Visit Diagnoses Not on filedocumented in this encounter Care Teams Quality Process Lead Relationship Specialty Start Date End Date Lolly Oliveira MD PCP - General 11/13/08 [address] [place] [address] documented as of this encounter
--- OUTSIDE RECORDS SUMMARY | 2022-02-06 09:04 | XMS_ITS | Encounter Summary ---
:1950 Author Organization [facility] Address [address] [place] [address] Care Team Providers Name Role Phone Lolly Oliveira MD Primary Care Provider Encounter Details Date Type Department Care Team Description 05/02/2004 Results Only [facility] - Lolly Mendoza MD conversion 201 [facility] [address] [place], [place] [address] [place] [id number] [phone] Social History Tobacco Use Types Packs/Day Years [...] PAPILLOMA VIRUS DNA TEST (05/02/2004 9:32 EST) [facility] Method Time Signature Specimen Cervix, BERNARDO Description ThinPrep [facility] vial Result Negative for TOVA HPV types [facility] 16, 18, 31, 33, 35, 39, 45, 51, 52, 56, 58, 59, and 68. Report Status Final [facility] [id number] [facility] Specimen Anatomical Collection Method Collection Time Receive d Time (Source) Location / / Volume Laterality 05/02/2004 9:32 05/10/2004 9 :32 EST EST Lolly Oliveira MD MICROBIOLOGY - GENERAL ORDER LOREN Performing Organization Address City/State/ZIP Code Phon e Number [facility] [address] [place] [address] SERVICES [facility] [address] [place] [address] CYTOPATHOLOGY (05/02/2004 0:00 EST) Component Value Ref Test Analysis Performed At [facility] Range Method Time Signature Pathology CYTOPATHOLOGY [...] Organization Address City/State/ZIP Code Phon e Number [facility] [address] [place] [address] SERVICES [facility] [address] [place] [address] documented in this encounter Visit Diagnoses Not on filedocumented in this encounter Care Teams Insurance Special Agent Relationship Specialty Start Date End Date Lolly Oliveira MD PCP - General 11/13/08 [address] [place] [address] documented as of this encounter
--- OUTSIDE RECORDS SUMMARY | 2022-02-06 09:04 | XMS_ITS | Encounter Summary ---
:1950 Author Organization [place] [address] Care Team Providers Name Role Phone Lolly Oliveira MD Primary Care Provider Encounter Details Date Type Department Care Team Description 07/20/2013 Hospital Mammography at [facility], DR COX Mammographic Encounter [facility] Lolly Oliveira MD [address] [place] [address] [place] [address] Social History Tobacco Use Types [...] does not layer and, therefore, are not business services representative of milk of calcium. Again [...] does not layer and, therefore, are not business services representative of milk of calcium. Again , these have an amorphous and punctate appearance and remain indeterminate. Malcolm reotactic guided biopsy is recommended. Alia Fraire MD IMG MAMMO ORDERABLES documented in this encounter Visit Diagnoses Diagnosis Mammographic microcalcification documented in this encounter Care Teams Language And Literature Division Chair Relationship Specialty Start Date End Date Lolly Oliveira MD PCP - General 07/17/13 [address] [place] [address] documented as of this encounter
--- OUTSIDE RECORDS SUMMARY | 2022-02-06 09:04 | XMS_ITS | Encounter Summary ---
:1950 Author Organization [facility] [place] [address] Care Team Providers Name Role Phone Unavailable Primary Care Provider Unavailable Encounter Details Date Type Department Care Team Description 07/04/2012 Orders Only Radiology Eleno Christian MD [facility] [place] [address] DIAGNOSTIC RADIOLOGY [phone] [place], [place] [address] (Wo rk) Social History Tobacco [...] is a Non-reportable exam Eleno Christian MD [facility] [place] FILM [facility]RARY ORDERABLES documented in this encounter Visit Diagnoses Not on filedocumented in this encounter
--- OUTSIDE RECORDS SUMMARY | 2022-02-06 09:04 | XMS_ITS | Encounter Summary ---
:1950 Author Organization [facility] Address [address] [place] [address] Care Team Providers Name Role Phone Lolly Oliveira MD Primary Care Provider Encounter Details Date Type Department Care Team Description 04/17/2005 Results Only [facility] - Lolly Mendoza MD conversion 201 [facility] [address] [place], [place] [address] [place] [address] [phone] Social History Tobacco Use Types Packs/Day Years [...] Component Value Ref Test Analysis Performed At [facility] Method Time Signature Pathology CYTOPATHOLOGY [...] ? ThinPrep Pap Test, Cervix/Endocervix, processed on CardioMEMSPrep Imaging System, with manual evaluation Last Menstrual [...] Number [facility] [address] [place] [address] SERVICES [facility] [address] [place] [address] documented in this encounter Visit Diagnoses Not on filedocumented in this encounter Care Teams Welder Apprentice Arc Relationship Specialty Start Date End Date Lolly Oliveira MD PCP - General 11/13/08 [address] [place] [address] documented as of this encounter
--- OUTSIDE RECORDS SUMMARY | 2022-02-06 09:04 | XMS_ITS | Encounter Summary ---
:1950 Author Organization [facility] [place] [address] Care Team Providers Name Role Phone Lolly Oliveira MD Primary Care Provider Encounter Details Date Type Department Care Team Description 07/18/2013 Orders Only Radiology Alia Fraire, Mammographic [facility] microcalcification (Primary Drive [facility]) [facility] [phone] DIAGNOSTIC [phone] [place] [address] Social History Tobacco Use Types Packs/Day Years [...] are present on specimen digital X-ray. A [employer]rk Eviva-Stereo 13 Cylinder marker clip was placed. [...] are present on specimen digital X-ray. A [employer] Eviva-Stereo 13 Cylinder marker clip was placed. [...] does not layer and, therefore, are not compliance representative dealer of milk of calcium. Again , these [...] does not layer and, therefore, are not compliance representative dealer of milk of calcium. Again , these have an amorphous and punctate appearance and remain indeterminate. Malcolm reotactic guided biopsy is recommended. Alia Fraire MD IMG MAMMO ORDERABLES documented in this encounter Visit Diagnoses Diagnosis Mammographic microcalcification - Primar y Mammographic microcalcification Mammographic microcalcification Mammographic microcalcification Mammographic microcalcification documented in this encounter Care Teams Necktie Centralizing Machine Operator Relationship Specialty Start Date End Date Lolly Oliveira MD PCP - General 07/17/13 [address] [place] [address] documented as of this encounter
--- OUTSIDE RECORDS SUMMARY | 2022-02-06 09:04 | XMS_ITS | Encounter Summary ---
:1950 Author Organization [facility] [place] [address] Care Team Providers Name Role Phone Lolly Oliveira MD Primary Care Provider Encounter Details Date Type Department Care Team Description 01/14/[address] [facility] Nora Meredith LPN [address] [place] [address] Social History Tobacco Use [...] return to phototherapy. New order sent to [facility]. Reviewed with patient Dr. Mar recommendation. She agrees with plan of care. Advised patient order will be sent to [facility]. She voiced understanding. documented in this encounter Plan of Treatment Not on filedocumented as of this encounter Visit Diagnoses Not on filedocumented in this encounter Care Teams Group Leader Semiconductor Testing Relationship Specialty Start Date End Date Lolly Oliveira MD PCP - General 07/17/13 [address] [place] [address] documented as of this encounter
--- OUTSIDE RECORDS SUMMARY | 2022-02-06 09:04 | XMS_ITS | Encounter Summary ---
:1950 Author Organization [facility] [place] [address] Care Team Providers Name Role Phone Unavailable Primary Care Provider Unavailable Encounter Details Date Type Department Care Team Description 07/14/2013 Orders Only Radiology Eleno Christian MD [facility] [place] [address] DIAGNOSTIC RADIOLOGY [phone] [place] [address] (Wo rk) Social History Tobacco Use Types Packs/Day Years Used Date Smoking Tobacco: Never Assessed Sex Assigned at Date Recorded Not on file documented as of this encounter Plan of Treatment Not on filedocumented as of this encounter Visit Diagnoses Not on filedocumented in this encounter
--- OUTSIDE RECORDS SUMMARY | 2022-02-09 13:49 | XMS_ITS | Encounter Summary ---
:1950 Author Organization [facility] Address [address] [place] [address] Care Team Providers Name Role Phone Lolly Oliveira MD Primary Care Provider Encounter Details Date Type Department Care Team Description 04/25/2009 Orders Only [facility] Janice Oliveira MD Laboratory Services - [address] [place] [address] [address] [facility] [place] [address] [phone] Social History Tobacco Use Types Packs/Day Years Used Date Smoking Tobacco: Never Assessed Sex Assigned at Date Recorded Not on file documented as of this encounter Plan of Treatment Not on filedocumented as of this encounter Procedures Procedure Name Priority Date/Time Associated Diagnosis Comme [facility] CYTOPATHOLOGY Routine 04/25/2009 0:00 EST Results for this procedure are i n the results section . documented in this encounter Results CYTOPATHOLOGY (04/25/2009 0:00 EST) Component Value Ref Test Analysis Performed At [facility] Pathology CYTOPATHOLOGY REPORT ? [facility] Report: ? [facility] Reports generated via electr onic interface contain original data; ? however they are lacking the format of the original report. ? Caution should be taken when reading/interpreting unformatted reports. ? Name: ? JING MOTT ? Accession #: ? [id number] ? : ? 1950 (Age: 58) ??F [...] City/State/ZIP Code Phon e Number [facility] [address] [place] [address] SERVICES [facility] [address] [place] [address] documented in this encounter Visit Diagnoses Not on filedocumented in this encounter Care Teams Pet Care Technician Relationship Specialty Start Date End Date Lolly Oliveira MD PCP - General 11/13/[address] [place] [address] documented as of this encounter
--- OUTSIDE RECORDS SUMMARY | 2022-02-09 13:49 | XMS_ITS | Encounter Summary ---
:1950 Author Organization [facility] Address [address] [place] [address] Care Team Providers Name Role Phone Lolly Oliveira MD Primary Care Provider Encounter Details Date Type Department Care Team Description 05/27/2021 Lab Requisition [facility] Iman Moran for other Pathology & M, DO general examination Laboratory Medicine - [address] [facility] [address] [place] [phone] Social History Tobacco Use Types Packs/Day Years [...] Component Value Ref Test Analysis Performed At [facility] Method Time Signature Note to The following 05/30/2021 [facility] Patient pathology results 13:31 [facility] have been LABORATORY interpreted by SERVICES your pathologist and may be available to you before your health provider has had the opportunity to review them. Please allow time for your provider to receive these results and explore management options, if applicable. Final A. COLON, POLYP AT 90 CM, BIOPSY/POLYPECTOMY: 05/30/2021 [facility] Diagnosis - Tubular adenoma. 13:31 [facility] SERVICES Attestation By the signature 05/30/2021 [facility] L Electronically below, the 13:31 [facility] signed by attending LABORATORY Pippa Mcgee physician HARRIETT Fierro MD on certifies that 2021 at they have 1) 1331 personally conducted a gross and/or microscopic examination of the described specimen(s), and/or personally interpreted the results of laboratory testing of the described specimen(s), and 2) personally rendered or confirmed the above diagnosis. Clinical Severe 05/30/2021 [facility] History diverticula and 13:31 [facility]ENTER polypectomy x1 LABORATORY SERVICES Gross A. 05/30/2021 [facility] Description Received in formalin sharmaine d with proper patient identification (initials J, K) and colon polyp x1 at 90 cm is a light pineda polypoid tissue measuring 0.2 x 0.2 x 0.2 cm. Submitted intact in A1. 13:31 [facility] LABORATORY MICKEY CARLOS(ASCP) 05/27/2021 19:11 SERVICES Performing Lab [facility] 05/30/2021 [facility] AL LAB 13:31 [facility] LABORATORY SERVICES Scanned Images 05/30/2021 [facility] 13:31 [facility] LABORATORY SERVICES Specimen Anatomical Collection Method Collection Time Receive d Time (Source) Location / / Volume Laterality Tissue ENTIRE COLON / 05/27/2021 11:23 2 Unknown EDT 16:33 EDT Iman Moran DO PATHOLOGY ORDERABLES Performing Organization Address City/State/ZIP Code Phon e Number [facility] [address] [place] [address] SERVICES documented in this encounter Visit Diagnoses Diagnosis Encounter for other general examination documented in this encounter Care Teams Kick Press Operator Relationship Specialty Start Date End Date Lolly Oliveira MD PCP - General 11/13/08 [address] [place], [place] [address] documented as of this encounter
--- OUTSIDE RECORDS SUMMARY | 2022-02-09 13:49 | XMS_ITS | Encounter Summary ---
:1950 Author Organization [facility] [place] [address] Care Team Providers Name Role Phone Lolly Oliveira MD Primary Care Provider Reason for Visit Reason Comments Follow-up Encounter Details Date Type Department Care Team Description 06/06/2021 Office Visit Dermatology at Clay Ramírez Psorias ishudson MD [address] [facility] Malcolm B DERMATOLOGY [place], [place] [id number] [phone] Social History Tobacco Use Types Packs/Day Years [...] legs have cleared. 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
--- OUTSIDE RECORDS SUMMARY | 2022-02-09 13:49 | XMS_ITS | Clinical Summary ---
:1950 Author Organization [facility] [address] Care Team Providers Name Role Phone Lolly [...] propionate (Flonase) Nare route daily. 50 mcg/actuation Byron, Suspension bisacodyl EC 0 05/19/2021 Active (Dulcolax) 5 mg Tablet, Delayed Release (E.C.) polyethylene glycoL CONSUME 238 GRAMS 0 05/19/2021 Active (Miralax) 17 BY MOUTH gram/dose Powder DIRECTED PER COLONOSCOPY INSTRUCTIONS FOR COLONOSCOPY PREP. Active Problems Problem Noted Date Dermatofibroma 11/23/2014 Nevus 11/23/2014 Solar lentigo 11/23/2014 Encounters Date Type Specialty Care Team Description 01/14/2022 Telephone Dermatology Nroa Meredith LPN from Last 3 Months Social History Tobacco Use Types Packs/Day Years Used Date Smoking Tobacco: Never Sex Assigned at Date Recorded Not on file Plan of Treatment Upcoming Encounters Date Type Specialty Care Team Description 04/09/2022 Office Visit Dermatology Clay Ramírez MD [address] [facility] DERMATOLOGY [place], [place] [address] (Wo rk) Health Maintenance Due Date Last Done Comments CT Colonography 1950 Colonoscopy 1950 Colorectal Cancer Screening 1950 FIT DNA 1950 FIT 1950 Sigmoidoscopy (10 year) with FIT yearly 1950 Sigmoidoscopy 1950 Covid-19 Vaccine (#1) 02/08/1949 Hepatitis C Screening 1966 Tdap adult 08/10/1967 Tetanus vaccine 08/10/1967 Breast Cancer Share Decision Needed 1988 Breast Cancer screening 1998 Zoster vaccine (1 of 2) 1998 Advance Directive 08/10/2003 Bone Density Scan 2013 Pneumoccocal Vaccine: 65+ (1 - PCV) 2013 Influenza (Flu) vaccine (1 of 1 - Influenza standard 11/06/2021 series) Insurance Payer Benefit Plan / Subscriber ID Effective Dates Phone Addre ss Type Group [place]UE [place] BLUE [id number] 2021-Rogerio [phone] [facility] [place] ADVANTAGE t 22 [id number] [place] [address] Care Teams Neurological Surgeon Relationship Specialty Start Date End Date Lolly Oliveira MD PCP - General 07/17/[address] [place] [id number]
--- OUTSIDE RECORDS SUMMARY | 2022-02-09 13:49 | XMS_ITS | Encounter Summary ---
:[address] [facility] Address [address] [place] [address] Care Team Providers Name Role Phone Lolly Oliveira MD Primary Care Provider Encounter Details Date Type Department Care Team Description 03/21/2019 Lab Requisition [facility] Unknown, Provider, Pathology & Laboratory [facility] [address] [place] [address] [place] [address] Social History Tobacco Use Types Packs/Day Years [...] Signature Vitamin B12 [phone] 03/22/2019 [facility] pg/mL 11:52 EST [facility]ENTER LABORATORY SERVICES Specimen Anatomical Collection Method Collection Time Receive d Time (Source) Location / / Volume Laterality Blood VENOUS BLOOD / 03/16/2019 9:25 03/21/2019 Unknown EST 21:35 EST Provider Unknown CHEMISTRY & BLOOD GAS ORDERA BLES Performing Organization Address City/State/ZIP Code Phon e Number [facility] [address] [place] [address] SERVICES documented in this encounter Visit Diagnoses Not on filedocumented in this encounter Care Teams Quality Control Coordinator Relationship Specialty Start Date End Date Lolly Oliveira MD PCP - General 11/13/08 [address] [place] [address] documented as of this encounter
--- OUTSIDE RECORDS SUMMARY | 2022-02-09 13:49 | XMS_ITS | Encounter Summary ---
:1950 [place] [address] Care Team Providers Name Role Phone Lolly Oliveira MD Primary Care Provider Encounter Details Date Type Department Care Team Description 07/26/2013 Hospital Encounter Mammography at [facility] micro[place] [phone] Social History Tobacco Use Types Packs/Day Years Used Date Smoking Tobacco: Never Assessed Sex Assigned at Date Recorded Not on file documented as of this encounter Plan of Treatment Upcoming Encounters Date Type Specialty Care Team Description 04/09/2022 Office Visit Dermatology Clay Ramírez MD [address] [facility] DERMATOLOGY [place], [place] [address] (Wo rk) documented as of this encounter Procedures Procedure Name [...] Component Value Ref Test Analysis Performed At [facility] Range Method Time Signature Surgical CERNER Pathology ? [facility] Report ? Provider: ?? KINGSLEY CHRISTIAN ?? Pt. Name: ?? JING MOTT ? Acc #: ?[id number] ?Pt. MRN: ?[id number] ? Col Date: ?? 4 ? /Sex: [...] Partially fragmented, fibrofatty needle core biopsies. ? [facility] ? Provider: ?? KINGSLEY CHRISTIAN ?? Pt. Name: ?? JING MOTT ? Acc #: ?[id number] ?Pt. MRN: ?[id number] ? Col Date: ?? 4 ? /Sex: [...] / Volume Laterality 07/26/2013 12:12 PM EDT Kingsley Christian MD PATHOLOGY/CYTOLOGY ORDERABLE S Performing Organization Address City/State/[place] [address] [employer] Mammo Specimen Imaging During Biopsy (07/26/2013 11:58 [...] are present on specimen digital X-ray. A Lernstift Eviva-Stereo 13 Cylinder marker clip was placed. Cranio-caudal and lateral digital mammography performed to determine biopsy marker placement, which was shown to be 1 cm from the biop sy site in lateral direction. Satisfactory sampling was obtained. There were no procedural complications. Imaging diagnosis: FCD versus adenosis v ersus DCIS. Pathologic diagnosis: adenosis, small ra dial sclerosing lesion completely excised Procedure Note Kingsley Christian MD - 07/28/2013Format ting of this [...] microcalcification documented in this encounter Care Teams Safety Professional Relationship Specialty Start Date End Date Lolly Oliveira MD PCP - General 07/17/13 [address] [place] [address] documented as of this encounter
--- OUTSIDE RECORDS SUMMARY | 2022-02-09 13:49 | XMS_ITS | Encounter Summary ---
:1950 Author Organization [facility] Address [address] [place] [address] Care Team Providers Name Role Phone Lolly Oliveira MD Primary Care Provider Encounter Details Date Type Department Care Team Description 02/20/2020 Lab Requisition [facility] Outr Resulting Lab, Pathology & Laboratory Provider [facility] [address] [place] [address] Social History Tobacco Use Types [...] TEST (02/19/2020 16:30 EST) Analysis Performed At [facility] Time Signature COVID-19 NEGATIVE Negative 02/22/2020 [...] Organization Address City/State/ZIP Code Phon e Number [facility] [place], [place] COVID-19 TESTING (02/19/2020 16:30 EST) Analysis Performed At [facility] Time Signature COVID-19 NEGATIVE Negative 02/22/2020 [...] Administration's Emergency Use Authorization. Performing Lab [facility] 02/22/2020 23:4 1 EST [facility] SERVICES Specimen Anatomical Collection Method Collection Time Receive d Time (Source) Location / / Volume Laterality Swab 02/19/2020 16:30 02/20/2020 EST 16:09 EST Provider Outr Resulting Lab MICROBIOLOGY - GENERAL ORD ERABLES Performing Organization Address City/State/ZIP Code Phon e Number [facility] [address] [place] [address] SERVICES [facility] [place], [place] documented in this encounter Visit Diagnoses Not on filedocumented in this encounter Care Teams Ring Spinner Relationship Specialty Start Date End Date Lolly Oliveira MD PCP - General 11/13/08 [address] [place] [address] documented as of this encounter
--- OUTSIDE RECORDS SUMMARY | 2022-02-09 13:49 | XMS_ITS | Encounter Summary ---
:1950 Author Organization [facility] [place] [address] Care Team Providers Name Role Phone Lolly Oliveira MD Primary Care Provider Encounter Details Date Type Department Care Team Description 07/26/2013 Orders Only Radiology Eleno Christian MD [facility] [place] [address] DIAGNOSTIC RADIOLOGY [phone] [place], [place] [address] (Wo rk) Social History Tobacco [...] Office Visit Dermatology Clay Ramírez MD [address] [facility] DERMATOLOGY [place], [place] [address] (Wo rk) documented as of this encounter Visit Diagnoses Not on filedocumented in this encounter Care Teams Longshore Equipment Operator Relationship Specialty Start Date End Date Lolly Oliveira MD PCP - General 07/17/13 [address] [place] [address] documented as of this encounter
--- OUTSIDE RECORDS SUMMARY | 2022-02-09 13:49 | XMS_ITS | Encounter Summary ---
:1950 Author Organization [facility] [place] [address] Care Team Providers Name Role Phone Lolly Oliveira MD Primary Care Provider Encounter Details Date Type Department Care Team Description 10/09/2021 Telephone Dermatology at [facility] Nora Meredith LPN [address] [place] [address] Social History Tobacco Use [...] Ramírez MD [address] [facility] DERMATOLOGY [place], [place] [address] (Wo rk) documented as of this encounter Visit Diagnoses Not on filedocumented in this encounter Care Teams Pantry Steward/Stewardess Relationship Specialty Start Date End Date Lolly Oliveira MD PCP - General 07/17/13 [address] [place] [address] documented as of this encounter
--- OUTSIDE RECORDS SUMMARY | 2022-02-09 13:49 | XMS_ITS | Encounter Summary ---
:1950 Author Organization [facility] Address [address] [place] [address] Care Team Providers Name Role Phone Unavailable Primary Care Provider Unavailable Encounter Details Date Type Department Care Team Description 11/07/2008 Orders Only [facility] Kenneth Krishnan MD Laboratory Services - [address] [place] [address] [place] [address] [phone] Social History Tobacco Use Types Packs/Day Years [...] Component Value Ref Test Analysis Performed At [facility] Method Time Signature Pathology SURGICAL PATHOLOGY REPORT ? J LUIS HER Report: Reports generated via electr Yub interface contain original data; ? LIBBY BLANCO however they are lacking the format of the original report. ? Caution should be taken when reading/interpreting unformatted reports. ? Name: ? LYLE, JING ? Accession #: ? [id number] ? : ? 1950 (Age: 58) ??F [...] Organization Address City/State/ZIP Code Phon e Number [facility] [address] [place] [address] SERVICES [facility] [address] [place] [address] documented in this encounter Visit Diagnoses Not on filedocumented in this encounter
--- OUTSIDE RECORDS SUMMARY | 2022-02-09 13:49 | XMS_ITS | Encounter Summary ---
:1950 Author Organization [facility] Address [address] [place] [address] Care Team Providers Name Role Phone Lolly Oliveira MD Primary Care Provider Encounter Details Date Type Department Care Team Description 04/01/2005 Results Only [facility] - Blair Comer MD conversion [address] [place] [id number] [place] [address] [phone] Social History Tobacco Use Types Packs/Day Years Used Date Smoking Tobacco: Never Assessed Sex Assigned at Date Recorded Not on file documented as of this encounter Plan of Treatment Not on filedocumented as of this encounter Procedures Procedure Name Priority Date/Time Associated Diagnosis Comme [facility] SURGICAL PATHOLOGY Routine 04/01/2005 0:00 EST Re sults for this procedure are i n the results section. documented in this encounter Results SURGICAL PATHOLOGY (04/01/2005 0:00 EST) Component Value Ref Test Analysis Performed At [facility] Method Time Signature Pathology SURGICAL PATHOLOGY REPORT FRANSISCO BORGES Report: Reports generated via electronic interface contain origina l data; LIBBY BLANCO however they are lacking the format of the original report. Caution should be taken when reading/interpreting unformatte d reports. Name: ? JING MOTT ? Accession #: ? [id number] ? : ? 1950 (Age: 54) ??F [...] intact as ( B). ??(Dr. Lechuga)/[facility] End of Report Specimen (Source) Anatomical Collection Method Collection Time Re ceived Time Location / / Volume Laterality 04/01/2005 04/02/2005 15:2 4 EST Blair Dukes MD PATHOLOGY ORDERABLES Performing Organization Address City/State/ZIP Code Phon e Number [facility] [address] [place] [address] SERVICES [facility] [address] [place] [address] documented in this encounter Visit Diagnoses Not on filedocumented in this encounter Care Teams Baker Doughnut Relationship Specialty Start Date End Date Lolly Oliveira MD PCP - General 11/13/08 [address] [place] [address] documented as of this encounter
--- OUTSIDE RECORDS SUMMARY | 2022-02-09 13:49 | XMS_ITS | Encounter Summary ---
:1950 Author Organization [facility] Address [address] [place] [address] Care Team Providers Name Role Phone Lolly Oliveira MD Primary Care Provider Encounter Details Date Type Department Care Team Description 03/06/2003 Results Only [facility] - Lolly Mendoza MD conversion [address] [facility] [address] [place], [place] [address] [place] [address] [phone] Social History Tobacco Use Types Packs/Day Years [...] City/State/ZIP Code Phon e Number [facility] [address] [place] [address] SERVICES [facility] [address] [place] [address] documented in this encounter Visit Diagnoses Not on filedocumented in this encounter Care Teams Communications Consultant Relationship Specialty Start Date End Date Lolly Oliveira MD PCP - General 11/13/08 [address] [place] [address] documented as of this encounter
--- OUTSIDE RECORDS SUMMARY | 2022-02-09 13:49 | XMS_ITS | Clinical Summary ---
:1950 Author Organization [facility] Address [address] [place] [address] Care Team Providers Name Role Phone Lolly [...] / Group Dates BCBS [place] BLUE [id number] 2021-Pres [phone] Medicare MEDICARE ADVANTAGE ent [id number] [place] [address] Care Teams Contact Clerk Relationship Specialty Start Date End Date Lolly Oliveira MD PCP - General 11/13/08 [address] [place] [address]
--- OUTSIDE RECORDS SUMMARY | 2022-02-09 13:49 | XMS_ITS | Encounter Summary ---
:1950 Author Organization [facility] Address [address] [place] [address] Care Team Providers Name Role Phone Lolly Oliveira MD Primary Care Provider Encounter Details Date Type Department Care Team Description 05/29/2002 Results Only [facility] - Lyric Quinn od, Silvia Blandon, PHP LAMP DEVELOPER conversion [address] [facility] [address] [place] [phone] (Wo rk) Social History Tobacco Use Types [...] Component Value Ref Test Analysis Performed At [facility] Method Time [facility] Pathology CYTOPATHOLOGY REPORT TOVA Report: [facility] [...] Receive Date: ? 05/31/2002 Provider: ?SILVIA DIEHL PHP LAMP DEVELOPER Copy to: ? Specimen/Source: ?ThinPrep Pap Test, [...] / Laterality Volume 05/29/2002 05/31/2002 Silvia Diehl PHP LAMP DEVELOPER PATHOLOGY ORDERABLES Performing Organization Address City/State/ZIP Code Phon e Number [facility] [address] [place] [address] SERVICES [facility] [address] [place] [address] documented in this encounter Visit Diagnoses Not on filedocumented in this encounter Care Teams Quad Stayer Relationship Specialty Start Date End Date Lolly Oliveira MD PCP - General 11/13/08 [address] [place] [address] documented as of this encounter
--- OUTSIDE RECORDS SUMMARY | 2022-02-09 13:49 | XMS_ITS | Encounter Summary ---
:1950 Author Organization [facility] Address [address] [place] [address] Care Team Providers Name Role Phone Lolly Oliveira MD Primary Care Provider Encounter Details Date Type Department Care Team Description 06/16/2012 Results Only [facility] Janice Oliveira MD Laboratory Services - [place] [address] [place] [address] [address] [facility] [place] [address] [phone] Social History Tobacco Use Types Packs/Day Years [...] Component Value Ref Test Analysis Performed At [facility] Method Time Signature Pathology CYTOPATHOLOGY REPORT TOVA [...] Address City/State/ZIP Code Phon e Number [facility] [address] [place] [address] SERVICES [facility] [address] [place] [address] documented in this encounter Visit Diagnoses Not on filedocumented in this encounter Care Teams Dub Room Engineer Relationship Specialty Start Date End Date Lolly Oliveira MD PCP - General 11/13/08 [address] [place] [address] documented as of this encounter
--- OUTSIDE RECORDS SUMMARY | 2022-02-09 13:50 | XMS_ITS | Encounter Summary ---
:1950 Author Organization [facility] [place] [address] Care Team Providers Name Role Phone Lolly Oliveira MD Primary Care Provider Encounter Details Date Type Department Care Team Description 07/20/2013 Hospital Mammography at [facility] Mammographic Encounter [facility] Lolly Oliveira MD [address] [place] [address] [place] [phone] Social History Tobacco Use Types Packs/Day Years Used Date Smoking Tobacco: Never Assessed Sex Assigned at Date Recorded Not on file documented as of this encounter Plan of Treatment Upcoming Encounters Date Type Specialty Care Team Description 04/09/2022 Office Visit Dermatology Clay Ramírez MD [address] [facility] DERMATOLOGY [place], [place] [address] (Wo rk) documented as [...] not layer and, therefore, are not business development representative of milk of calcium. Again [...] not layer and, therefore, are not business development representative of milk of calcium. Again , these have an amorphous and punctate appearance and remain indeterminate. Malcolm reotactic guided biopsy is recommended. Alia Fraire MD IMG MAMMO ORDERABLES documented in this encounter Visit Diagnoses Diagnosis Mammographic microcalcification documented in this encounter Care Teams Sorter/Assay Tech Relationship Specialty Start Date End Date Lolly Oliveira MD PCP - General 07/17/13 [address] [place] [address] documented as of this encounter
--- OUTSIDE RECORDS SUMMARY | 2022-02-09 13:50 | XMS_ITS | Encounter Summary ---
:1950 Author Organization [facility] [place] [address] Care Team Providers Name Role Phone Lolly Oliveira MD Primary Care Provider Encounter Details Date Type Department Care Team Description 06/29/2011 Orders Only Radiology Eleno Christian MD [facility] [place] [address] DIAGNOSTIC RADIOLOGY [phone] [place], [place] [address] (Wo rk) Social History Tobacco Use Types Packs/Day Years Used Date Smoking Tobacco: Never Assessed Sex Assigned at Date Recorded Not on file documented as of this encounter Plan of Treatment Upcoming Encounters Date Type Specialty Care Team Description 04/09/2022 Office Visit Dermatology Clay Ramírez MD [address] [place] [address] DERMATOLOGY [place], [place] [address] (Wo rk) documented as [...] is a Non-reportable exam Eleno Christian MD IM FILM LIBRARY ORDERABLES documented in this encounter Visit Diagnoses Not on filedocumented in this encounter Care Teams Lodge Sales Associate Relationship Specialty Start Date End Date Lolly Oliveira MD PCP - General 07/17/13 [address] [place] [address] documented as of this encounter
--- OUTSIDE RECORDS SUMMARY | 2022-02-09 13:50 | XMS_ITS | Encounter Summary ---
:1950 Author Organization [facility] [place] [address] Care Team Providers Name Role Phone Lolly Oliveira MD Primary Care Provider Encounter Details Date Type Department Care Team Description 07/26/2013 Hospital Encounter Mammography [place] [facility] [place] [facility] [place] [phone] Social History Tobacco Use Types Packs/Day Years Used Date Smoking Tobacco: Never Assessed Sex Assigned at Date Recorded Not on file documented as of this encounter Plan of Treatment Upcoming Encounters Date Type Specialty Care Team Description 04/09/2022 Office Visit Dermatology Clay Ramírez MD [address] [facility] DERMATOLOGY [place], [place] [address] (Wo rk) documented as [...] ??As discussed with Ms. Mott by Dr. Christain on 07/28/13. ?? I performed the procedure [...] microcalcification documented in this encounter Care Teams Engineering And Development Director Relationship Specialty Start Date End Date Lolly Oliveira MD PCP - General 07/17/13 [address] [place] [address] documented as of this encounter
--- OUTSIDE RECORDS SUMMARY | 2022-02-09 13:50 | XMS_ITS | Encounter Summary ---
:1950 Author Organization [facility] [place] [address] Care Team Providers Name Role Phone Lolly Oliveira MD Primary Care Provider Encounter Details Date Type Department Care Team Description 07/17/2013 Hospital Encounter XRay at [facility], DR COX [address] [place] [address] [place] [address] Social History Tobacco Use Types Packs/Day Years Used Date Smoking Tobacco: Never Assessed Sex Assigned at Date Recorded Not on file documented as of this encounter Consult Notes Provider, Hollie - 07/17/2013 7:56 AM EDT documented in this encounter Plan of Treatment Upcoming Encounters Date Type Specialty Care Team Description 04/09/2022 Office Visit Dermatology Clay Ramírez MD [address] [place] [address] DERMATOLOGY [place], [place] [address] (Wo rk) documented as of this encounter Visit Diagnoses Not on filedocumented in this encounter Care Teams Oracle Database Developer Relationship Specialty Start Date End Date Lolly Oliveira MD PCP - General 07/17/13 [address] [place] [address] documented as of this encounter
--- OUTSIDE RECORDS SUMMARY | 2022-02-09 13:50 | XMS_ITS | Encounter Summary ---
:1950 [place] [address] Care Team Providers Name Role Phone Unavailable Primary Care Provider Unavailable Encounter Details Date Type Department Care Team Description 07/04/2012 Orders Only Radiology Eleno Christian MD [facility] [place] [address] DIAGNOSTIC RADIOLOGY [phone] [place], [place] [address] (Wo rk) Social History Tobacco Use Types Packs/Day Years Used Date Smoking Tobacco: Never Assessed Sex Assigned at Date Recorded Not on file documented as of this encounter Plan of Treatment Upcoming Encounters Date Type Specialty Care Team Description 04/09/2022 Office Visit Dermatology Clay Ramírez MD [address] [place] [address] DERMATOLOGY [place], [place] [address] (Wo rk) documented as [...]
--- OUTSIDE RECORDS SUMMARY | 2022-02-09 13:50 | XMS_ITS | Encounter Summary ---
:1950 Author Organization [facility] [place] [address] Care Team Providers Name Role Phone Unavailable Primary Care Provider Unavailable Encounter Details Date Type Department Care Team Description 07/14/2013 External Results XRay at [facility] [place] Provider, [address] [place] [address] Social History Tobacco Use Types Packs/Day Years Used Date Smoking Tobacco: Never Assessed Sex Assigned at Date Recorded Not on file documented as of this encounter Plan of Treatment Upcoming Encounters Date Type Specialty Care Team Description 04/09/2022 Office Visit Dermatology Clay Ramírez MD [address] [facility] DERMATOLOGY [place], [place] [address] (Wo rk) documented as [...]
--- OUTSIDE RECORDS SUMMARY | 2022-02-09 13:50 | XMS_ITS | Encounter Summary ---
:1950 [address] [facility] [place] [address] Care Team Providers Name Role Phone Lolly Oliveira MD Primary Care Provider Encounter Details Date Type Department Care Team Description 07/17/2013 Orders Only Radiology Lolly Ocampo MD [facility] [address] [facility] [place] [address] [place] [address] [phone] Social History Tobacco Use Types Packs/Day Years Used Date Smoking Tobacco: Never Assessed Sex Assigned at Date Recorded Not on file documented as of this encounter Plan of Treatment Upcoming Encounters Date Type Specialty Care Team Description 04/09/2022 Office Visit Dermatology Clay Ramírez MD [address] [place] [address] DERMATOLOGY [place], [place] [address] (Wo rk) documented as [...] MAMMOGRAMS (PERFORMED ON 07/06/13 AND 07/14/13) FROM [facility] DATED 07/17/13: ?? DIAGNOSTIC IMAGING SUMMARY: [...] (PE RFORMED ON 07/06/13 AND 07/14/13) FROM [facility] DATED 07/17/13: DIAGNOSTIC IMAGING SUMMARY: RIGHT [...] on filedocumented in this encounter Care Teams Real Estate Assistant Relationship Specialty Start Date End Date Lolly Oliveira MD PCP - General 07/17/13 [address] [place] [address] documented as of this encounter
--- OUTSIDE RECORDS SUMMARY | 2022-02-09 13:50 | XMS_ITS | Encounter Summary ---
:1950 Author Organization [facility] [place] [address] Care Team Providers Name Role Phone Unavailable Primary Care Provider Unavailable Encounter Details Date Type Department Care Team Description 07/14/2013 Orders Only Radiology Eleno Christian MD [facility] [place] [address] DIAGNOSTIC RADIOLOGY [phone] [place], [place] [address] (Wo rk) Social History Tobacco Use Types Packs/Day Years Used Date Smoking Tobacco: Never Assessed Sex Assigned at Date Recorded Not on file documented as of this encounter Plan of Treatment Upcoming Encounters Date Type Specialty Care Team Description 04/09/2022 Office Visit Dermatology Clay Ramírez MD [address] [place] [address] DERMATOLOGY [place], [place] [address] (Wo rk) documented as of this encounter Visit Diagnoses Not on filedocumented in this encounter
--- OUTSIDE RECORDS SUMMARY | 2022-02-11 09:54 | XMS_ITS | Encounter Summary ---
:1950 Author Organization [facility] Address [address] [place] [address] Care Team Providers Name Role Phone Lolly Oliveira MD Primary Care Provider Encounter Details Date Type Department Care Team Description 05/02/2004 Results Only [facility] - Lolly Mendoza MD conversion [address] [facility] [address] [place], [place] [address] [place] [id number] [phone] Social History Tobacco Use Types Packs/Day Years [...] PAPILLOMA VIRUS DNA TEST (05/02/2004 9:32 EST) [facility] Method Time Signature Specimen Cervix, BERNARDO Description ThinPrep [facility] vial Result Negative for TOVA HPV types [facility] 16, 18, 31, 33, 35, 39, 45, 51, 52, 56, 58, 59, and 68. Report Status Final [facility] [id number] [facility] Specimen Anatomical Collection Method Collection Time Receive d Time (Source) Location / / Volume Laterality 05/02/2004 9:32 05/10/2004 9 :32 EST EST Lolly Oliveira MD MICROBIOLOGY - GENERAL ORDER LOREN Performing Organization Address City/State/ZIP Code Phon e Number [facility] [address] [place] [address] SERVICES [facility] [address] [place] [address] CYTOPATHOLOGY (05/02/2004 0:00 EST) Component Value Ref Test Analysis Performed At [facility] Range Method Time Signature Pathology CYTOPATHOLOGY [...] Organization Address City/State/ZIP Code Phon e Number [facility] [address] [place] [address] SERVICES [facility] [address] [place] [address] documented in this encounter Visit Diagnoses Not on filedocumented in this encounter Care Teams Mortgage Banker Relationship Specialty Start Date End Date Lolly Oliveira MD PCP - General 11/13/08 [address] [place] [address] documented as of this encounter
--- OUTSIDE RECORDS SUMMARY | 2022-02-11 09:54 | XMS_ITS | Encounter Summary ---
:1950 Author Organization [facility] [place] [address] Care Team Providers Name Role Phone Lolly Oliveira MD Primary Care Provider Encounter Details Date Type Department Care Team Description 10/09/2021 Telephone Dermatology at [facility] Nora Meredith LPN [address] [place] [address] Social History Tobacco Use [...] MD [address] [facility] DERMATOLOGY [place], [place] [address] (Wo rk) documented as of this encounter Visit Diagnoses Not on filedocumented in this encounter Care Teams Sand Hauler Relationship Specialty Start Date End Date Lolly Oliveira MD PCP - General 07/17/13 [address] [place] [address] documented as of this encounter
--- OUTSIDE RECORDS SUMMARY | 2022-02-11 09:54 | XMS_ITS | Encounter Summary ---
:1950 Author Organization [facility] Address [address] [place] [address] Care Team Providers Name Role Phone Lolly Oliveira MD Primary Care Provider Encounter Details Date Type Department Care Team Description 04/01/2005 Results Only [facility] - Blair Comer MD conversion [address] [place] [id number] [place] [address] [phone] Social History Tobacco Use Types Packs/Day Years [...] Value Ref Test Analysis Performed At [facility] Method Time Signature Pathology SURGICAL PATHOLOGY REPORT [facility]ISCO [facility]GES Report: Reports generated via electronic interface contain origina l data; [facility] however they are lacking the format of the original report. Caution should be taken when reading/interpreting unformatte d reports. Name: ? JING MOTT ? Accession #: ? [id number] ? : ? 1950 (Age: 54) ??F [...] tissue, submitted intact as ( B). ??(Dr. Lechuga)/[facility] End of Report Specimen (Source) Anatomical Collection Method Collection Time Re ceived Time Location / / Volume Laterality 04/01/2005 04/02/2005 15:2 4 EST Blair Dukes MD PATHOLOGY ORDERABLES Performing Organization Address City/State/ZIP Code Phon e Number [facility] [address] [place] [address] SERVICES [facility] [address] [place] [address] documented in this encounter Visit Diagnoses Not on filedocumented in this encounter Care Teams Helicopter Repairer Relationship Specialty Start Date End Date Lolly Oliveira MD PCP - General 11/13/08 [address] [place] [address] documented as of this encounter
--- OUTSIDE RECORDS SUMMARY | 2022-02-11 09:54 | XMS_ITS | Clinical Summary ---
:1950 Author Organization [facility] Address [address] [place] [address] Care Team Providers Name Role Phone Lolly [...] / Group Dates BCBS [place]BS [place] BLUE [id number] 2021-Pres [phone] [address] Medicare MEDICARE ADVANTAGE ent [phone] [id number] [place] [address] Care Teams Media Buyer Relationship Specialty Start Date End Date Lolly Oliveira MD PCP - General 11/13/08 [address] [place] [address]
--- OUTSIDE RECORDS SUMMARY | 2022-02-11 09:54 | XMS_ITS | Encounter Summary ---
:1950 Author Organization [facility] [place] [address] Care Team Providers Name Role Phone Unavailable Primary Care Provider Unavailable Encounter Details Date Type Department Care Team Description 07/14/2013 External Results XRay at [facility] Provider, [address] [place] [address] Social History Tobacco Use Types Packs/Day Years Used Date Smoking Tobacco: Never Assessed Sex Assigned at Date Recorded Not on file documented as of this encounter Plan of Treatment Upcoming Encounters Date Type Specialty Care Team Description 04/09/2022 Office Visit Dermatology Clay Ramírez MD [address] [facility] DERMATOLOGY [place], [place] [address] (Wo rk) documented as [...]
--- OUTSIDE RECORDS SUMMARY | 2022-02-11 09:54 | XMS_ITS | Encounter Summary ---
:1950 Author Organization [facility] [place] [address] Care Team Providers Name Role Phone Lolly Oliveira MD Primary Care Provider Encounter Details Date Type Department Care Team Description 07/26/2013 Hospital Encounter Mammography at [facility] Mammographic [facility] [place] [phone] Social History Tobacco Use Types Packs/Day Years Used Date Smoking Tobacco: Never Assessed Sex Assigned at Date Recorded Not on file documented as of this encounter Plan of Treatment Upcoming Encounters Date Type Specialty Care Team Description 04/09/2022 Office Visit Dermatology Clay Ramírez MD [address] [facility] DERMATOLOGY [place], [place] [address] (Wo rk) documented as [...] microcalcification documented in this encounter Care Teams Land Mobile Radio Technician Relationship Specialty Start Date End Date Lolly Oliveira MD PCP - General 07/17/13 [address] [place] [address] documented as of this encounter
--- OUTSIDE RECORDS SUMMARY | 2022-02-11 09:54 | XMS_ITS | Encounter Summary ---
:1950 Author Organization [facility] [place] [address] Care Team Providers Name Role Phone Lolly Oliveira MD Primary Care Provider Encounter Details Date Type Department Care Team Description 07/17/2013 Hospital Encounter XRay at [facility], DR COX [address] [place] [address] [place] [address] Social History Tobacco Use Types Packs/Day Years Used Date Smoking Tobacco: Never Assessed Sex Assigned at Date Recorded Not on file documented as of this encounter Consult Notes Provider, Hollie - 07/17/2013 7:56 AM EDT documented in this encounter Plan of Treatment Upcoming Encounters Date Type Specialty Care Team Description 04/09/2022 Office Visit Dermatology Clay Ramírez MD [address] [place] [address] DERMATOLOGY [place], [place] [address] (Wo rk) documented as of this encounter Visit Diagnoses Not on filedocumented in this encounter Care Teams Pipeline Gang Supervisor Relationship Specialty Start Date End Date Lolly Oliveira MD PCP - General 07/17/13 [address] [place] [address] documented as of this encounter
--- OUTSIDE RECORDS SUMMARY | 2022-02-11 09:54 | XMS_ITS | Encounter Summary ---
:1950 Author Organization [facility] [place] [address] Care Team Providers Name Role Phone Lolly Oliveira MD Primary Care Provider Encounter Details Date Type Department Care Team Description 04/01/2021 Office Visit Dermatology at Clay Ramírez Psorias is, [place] MD [address] [facility] [address] [facility] Malcolm B DERMATOLOGY [place], [place] [address] [phone] Social History Tobacco Use Types Packs/Day Years [...] Ramírez MD 580 [facility] DERMATOLOGY [place], [place] [address] (Wo rk) documented as of this encounter Visit Diagnoses Diagnosis Psoriasis, guttate Other psoriasis documented in this encounter Care Teams Mercury Washer Relationship Specialty Start Date End Date Lolly Oliveira MD PCP - General 07/17/13 [address] [place] [address] documented as of this encounter
--- OUTSIDE RECORDS SUMMARY | 2022-02-11 09:54 | XMS_ITS | Encounter Summary ---
:1950 Author Organization [facility] Address [address] [place] [address] Care Team Providers Name Role Phone Lolly Oliveira MD Primary Care Provider Encounter Details Date Type Department Care Team Description 02/11/2021 Lab Requisition [facility] Outr Resulting Lab, Pathology & Laboratory Provider [facility] [address] [place] [address] Social History Tobacco Use Types Packs/Day [...] Organization Address City/State/ZIP Code Phon e Number [facility] [address] [place] [address] SERVICES COVID-19 TESTING (02/11/2021 8:00 EST) [facility] Time Signature COVID-19 Negative Negative 02/12/2021 [facility] rt-PCR Result 14:17 EST CENTER [...] using the med SA RS-CoV-2 assay ([employer]phanie [employer] on the Med 6800 System Performing Lab Med 6800 [facility] 02/12/2021 14:17 E [facility] Lab LABORATORY SERVICES Specimen Anatomical Collection Method Collection Time Receive d Time (Source) Location / / Volume Laterality Swab 02/11/2021 8:00 02/11/2021 EST 22:22 EST Provider Outr Resulting Lab MICROBIOLOGY - GENERAL ORD ERABLES Performing Organization Address City/State/ZIP Code Phon e Number [facility] [address] [place] [address] SERVICES documented in this encounter Visit Diagnoses Not on filedocumented in this encounter Care Teams Target Man Relationship Specialty Start Date End Date Lolly Oliveira MD PCP - General 11/13/08 [address] [place], [place] [address] documented as of this encounter
--- OUTSIDE RECORDS SUMMARY | 2022-02-11 09:54 | XMS_ITS | Encounter Summary ---
:1950 Author Organization [facility] Address [address] [place] [address] Care Team Providers Name Role Phone Lolly Oliveira MD Primary Care Provider Encounter Details Date Type Department Care Team Description 03/21/2019 Lab Requisition [facility] Unknown, Provider, Pathology & Laboratory [facility] [address] [place] [address] [place] [address] Social History Tobacco Use Types Packs/Day Years [...] Vitamin B12 [phone] 03/22/2019 [facility]ICAL pg/mL 11:52 EST CENTER LABORATORY SERVICES Specimen Anatomical Collection Method Collection Time Receive d Time (Source) Location / / Volume Laterality Blood VENOUS BLOOD / 03/16/2019 9:25 03/21/2019 Unknown EST 21:35 EST Provider Unknown CHEMISTRY & BLOOD GAS ORDERA BLES Performing Organization Address City/State/ZIP Code Phon e Number [facility] [address] [place] [address] SERVICES documented in this encounter Visit Diagnoses Not on filedocumented in this encounter Care Teams Manager Discovery Relationship Specialty Start Date End Date Lolly Oliveira MD PCP - General 11/13/08 [address] [place] [address] documented as of this encounter
--- OUTSIDE RECORDS SUMMARY | 2022-02-11 09:54 | XMS_ITS | Encounter Summary ---
:1950 Author Organization [facility] [place] [address] Care Team Providers Name Role Phone Unavailable Primary Care Provider Unavailable Encounter Details Date Type Department Care Team Description 07/14/2013 Orders Only Radiology Eleno Christian MD [facility] [place] [address] DIAGNOSTIC RADIOLOGY [phone] [place], [place] [address] (Wo rk) Social History Tobacco Use Types Packs/Day Years Used Date Smoking Tobacco: Never Assessed Sex Assigned at Date Recorded Not on file documented as of this encounter Plan of Treatment Upcoming Encounters Date Type Specialty Care Team Description 04/09/2022 Office Visit Dermatology Clay Ramírez MD [address] [place] [address] DERMATOLOGY [place], [place] [address] (Wo rk) documented as of this encounter Visit Diagnoses Not on filedocumented in this encounter
--- OUTSIDE RECORDS SUMMARY | 2022-02-11 09:54 | XMS_ITS | Encounter Summary ---
:1950 Author Organization [facility] Address [address] [place] [address] Care Team Providers Name Role Phone Lolly Oliveira MD Primary Care Provider Encounter Details Date Type Department Care Team Description 05/29/2002 Results Only [facility] - Lyric Quinn od, Silvia Blandon, MARINE STRUCTURAL DESIGNER conversion [address] [facility] [address] [place] [phone] (Wo rk) Social History Tobacco Use Types [...] Component Value Ref Test Analysis Performed At [facility] Method Time [facility] Pathology CYTOPATHOLOGY [...] Receive Date: ? 05/31/2002 Provider: ?SILVIA DIEHL MARINE STRUCTURAL DESIGNER Copy to: ? Specimen/Source: ?ThinPrep Pap Test, [...] / Laterality Volume 05/29/2002 05/31/2002 Silvia Diehl MARINE STRUCTURAL DESIGNER PATHOLOGY ORDERABLES Performing Organization Address City/State/ZIP Code Phon e Number [facility] [address] [place] [address] SERVICES [facility] [address] [place] [address] documented in this encounter Visit Diagnoses Not on filedocumented in this encounter Care Teams Supervisor Advertising Dispatch Clerks Relationship Specialty Start Date End Date Lolly Oliveira MD PCP - General 11/13/08 [address] [place] [address] documented as of this encounter
--- OUTSIDE RECORDS SUMMARY | 2022-02-11 09:54 | XMS_ITS | Encounter Summary ---
:1950 Author Organization [facility] Address [address] [place] [address] Care Team Providers Name Role Phone Lolly Oliveira MD Primary Care Provider Encounter Details Date Type Department Care Team Description 11/13/2020 Lab Requisition [facility] Outr Resulting Lab, Pathology & Laboratory Provider [facility] [address] [place] [address] Social History Tobacco Use Types Packs/Day Years Used Date Smoking Tobacco: Never Assessed Sex Assigned at Date Recorded Not on file documented as of this encounter Plan of Treatment Not on filedocumented as of this encounter Procedures Procedure Name Priority Date/Time Associated Diagnosis Comme nts [facility] 11/13/2020 7:30 EDT LAB PCR COVID-19 TESTING Routine 11/13/2020 7:30 EDT Resu lts for this procedure are i n the results section. documented in this encounter Results COVID-19 TEST [facility] PCR (11/13/2020 7:30 EDT) Specimen Anatomical Location Collection Method Collection Time Received Time (Source) / Laterality / Volume Swab ENTIRE NASOPHARYNX 11/13/2020 7:30 2020 / Unknown EDT 20:57 EDT Provider Outr Resulting Lab MICROBIOLOGY - GENERAL ORD ERABLES Performing Organization Address City/State/ZIP Code Phon e Number [facility] [address] [place] [address] SERVICES COVID-19 TESTING (11/13/2020 7:30 EDT) Analysis Performed At Patho logist Time Signature COVID-19 Negative Negative 11/14/2020 [facility] MEDICAL rt-PCR Result 11:46 EDT CENTER [...] using the med SA RS-CoV-2 assay ([employer]phanie [employer] on the Med 6800 System Performing Lab Med 6800 [facility] 11/14/2020 11:46 E DT [facility] Lab LABORATORY SERVICES Specimen Anatomical Collection Method Collection Time Receive d Time (Source) Location / / Volume Laterality Swab 11/13/2020 7:30 11/13/2020 EDT 20:57 EDT Provider Outr Resulting Lab MICROBIOLOGY - GENERAL ORD ERABLES Performing Organization Address City/State/ZIP Code Phon e Number [facility] [address] [place] [address] SERVICES documented in this encounter Visit Diagnoses Not on filedocumented in this encounter Care Teams Pay Station Department Manager Relationship Specialty Start Date End Date Lolly Oliveira MD PCP - General 11/13/08 [address] [place], [place] [address] documented as of this encounter
--- OUTSIDE RECORDS SUMMARY | 2022-02-11 09:54 | XMS_ITS | Encounter Summary ---
:1950 [place] [address] Care Team Providers Name Role Phone Lolly Oliveira MD Primary Care Provider Encounter Details Date Type Department Care Team Description 07/26/2013 Hospital Encounter Mammography at [facility] Mammographic [facility] [place] [id number] Social History Tobacco Use Types Packs/Day Years Used Date Smoking Tobacco: Never Assessed Sex Assigned at Date Recorded Not on file documented as of this encounter Plan of Treatment Upcoming Encounters Date Type Specialty Care Team Description 04/09/2022 Office Visit Dermatology Clay Ramírez MD [address] [facility] DERMATOLOGY [place], [place] [address] (Wo rk) documented as [...] Component Value Ref Test Analysis Performed At [facility] Range Method Time Signature Surgical CERNER Pathology ? [facility] Report ? Provider: ?? KINGSLEY CHRISTIAN ?? Pt. Name: ?? JING MOTT ? Acc #: ?[id number] ?Pt. MRN: ?[id number] ? Col Date: ?? 4 ? /Sex: [...] Partially fragmented, fibrofatty needle core biopsies. ? [facility] ? Provider: ?? KINGSLEY CHRISTIAN ?? Pt. Name: ?? JING MOTT ? Acc #: ?[id number] ?Pt. MRN: ?[id number] ? Col Date: ?? 4 ? /Sex: [...] Organization Address City/State/[place] [address] [employer] Mammo Specimen Imaging During Biopsy (07/26/2013 11:58 AM EDT) Anatomical Region Laterality Modality Breast N/A Mammography Specimen (Source) Anatomical Collection Method Collection Time Re ceived Time Location / / Volume Laterality 07/26/2013 11:58 AM EDT Impressions 07/28/2013 5:26 PM EDT Impression: concordant Recommendation: f/u mammography in one y ear. ??As discussed with Ms. Mott by Dr. Chirstian on 07/28/13. ?? I performed the procedure [...] are present on specimen digital X-ray. A Mom Trusted Eviva-Stereo 13 Cylinder marker clip was placed. [...] microcalcification documented in this encounter Care Teams Stylist Assistant Relationship Specialty Start Date End Date Lolly Oliveira MD PCP - General 07/17/13 [address] [place] [address] documented as of this encounter
--- OUTSIDE RECORDS SUMMARY | 2022-02-11 09:54 | XMS_ITS | Encounter Summary ---
:1950 Author Organization [facility] [place] [address] Care Team Providers Name Role Phone Lolly Oliveira MD Primary Care Provider Encounter Details Date Type Department Care Team Description 06/29/2011 Orders Only Radiology Eleno Christian MD [facility] [place] [address] DIAGNOSTIC RADIOLOGY [phone] [place], [place] [address] (Wo rk) Social History Tobacco Use Types Packs/Day Years Used Date Smoking Tobacco: Never Assessed Sex Assigned at Date Recorded Not on file documented as of this encounter Plan of Treatment Upcoming Encounters Date Type Specialty Care Team Description 04/09/2022 Office Visit Dermatology Clay Ramírez MD [address] [place] [address] DERMATOLOGY [place], [place] [address] (Wo rk) documented as [...] on filedocumented in this encounter Care Teams Warehouse Loader Relationship Specialty Start Date End Date Lolly Oliveira MD PCP - General 07/17/13 [address] [place] [address] documented as of this encounter
--- OUTSIDE RECORDS SUMMARY | 2022-02-11 09:54 | XMS_ITS | Encounter Summary ---
:1950 Author Organization [facility] [place] [address] Care Team Providers Name Role Phone Lolly Oliveira MD Primary Care Provider Encounter Details Date Type Department Care Team Description 07/18/2013 Orders Only Radiology Alia Fraire, Mammographic [facility] microcalcification ([facility]) [facility] [id number] DIAGNOSTIC [phone] [place] [address] Social History Tobacco Use Types Packs/Day Years Used Date Smoking Tobacco: Never Assessed Sex Assigned at Date Recorded Not on file documented as of this encounter Plan of Treatment Upcoming Encounters Date Type Specialty Care Team Description 04/09/2022 Office Visit Dermatology Clay Ramírez MD [address] [place] [address] DERMATOLOGY [place], [place] [address] (Wo rk) documented as of this encounter Results Mammo Specimen [...] are present on specimen digital X-ray. A [employer] Eviva-Stereo 13 Cylinder marker clip was placed. [...] are present on specimen digital X-ray. A [employer] Eviva-Stereo 13 Cylinder marker clip was placed. [...] does not layer and, therefore, are not risk control representative of milk of calcium. Again , [...] does not layer and, therefore, are not risk control representative of milk of calcium. Again , these have an amorphous and punctate appearance and remain indeterminate. Malcolm reotactic guided biopsy is recommended. Alia Fraire MD IMG MAMMO ORDERABLES documented in this encounter Visit Diagnoses Diagnosis Mammographic microcalcification - Primar y Mammographic microcalcification Mammographic microcalcification Mammographic microcalcification Mammographic microcalcification documented in this encounter Care Teams Quality Tester Relationship Specialty Start Date End Date Lolly Oliveira MD PCP - General 07/17/13 [address] [place] [address] documented as of this encounter
--- OUTSIDE RECORDS SUMMARY | 2022-02-11 09:54 | XMS_ITS | Encounter Summary ---
:1950 Author Organization [facility] [place] [address] Care Team Providers Name Role Phone Lolly Oliveira MD Primary Care Provider Encounter Details Date Type Department Care Team Description 07/17/2013 Orders Only Radiology Lolly Ocampo MD [facility] [address] [facility] [place] [address] [place] [address] [phone] Social History Tobacco Use Types Packs/Day Years Used Date Smoking Tobacco: Never Assessed Sex Assigned at Date Recorded Not on file documented as of this encounter Plan of Treatment Upcoming Encounters Date Type Specialty Care Team Description 04/09/2022 Office Visit Dermatology Clay Ramírez MD [address] [place] [address] DERMATOLOGY [place], [place] [address] (Wo rk) documented as [...] MAMMOGRAMS (PERFORMED ON 07/06/13 AND 07/14/13) FROM [facility] DATED 07/17/13: ?? DIAGNOSTIC IMAGING SUMMARY: [...] (PE RFORMED ON 07/06/13 AND 07/14/13) FROM [facility] DATED 07/17/13: DIAGNOSTIC IMAGING SUMMARY: RIGHT [...] filedocumented in this encounter Care Teams Senior Science Consultant Relationship Specialty Start Date End Date Lolly Oliveira MD PCP - General 07/17/13 [address] [place] [address] documented as of this encounter
--- OUTSIDE RECORDS SUMMARY | 2022-02-11 09:54 | XMS_ITS | Encounter Summary ---
:[address] [facility] Address [address] [place] [address] Care Team Providers Name Role Phone Lolly Oliveira MD Primary Care Provider Encounter Details Date Type Department Care Team Description 02/20/2020 Lab Requisition [facility] Outr Resulting Lab, Pathology & Laboratory Provider [facility] [address] [place] [address] Social History Tobacco Use Types [...] TEST (02/19/2020 16:30 EST) Analysis Performed At [facility] Time Signature COVID-19 NEGATIVE Negative 02/22/2020 BROAD [...] Organization Address City/State/ZIP Code Phon e Number [facility] [place], [place] COVID-19 TESTING (02/19/2020 16:30 EST) Analysis Performed At [facility] Time Signature COVID-19 NEGATIVE Negative 02/22/2020 BROAD [...] Administration's Emergency Use Authorization. Performing Lab [facility] 02/22/2020 23:4 1 EST [facility] SERVICES Specimen Anatomical Collection Method Collection Time Receive d Time (Source) Location / / Volume Laterality Swab 02/19/2020 16:30 02/20/2020 EST 16:09 EST Provider Outr Resulting Lab MICROBIOLOGY - GENERAL ORD ERABLES Performing Organization Address City/State/ZIP Code Phon e Number [facility] [address] [place] [address] SERVICES [facility] [place], [place] documented in this encounter Visit Diagnoses Not on filedocumented in this encounter Care Teams Eyelet Row Marker Relationship Specialty Start Date End Date Lolly Oliveira MD PCP - General 11/13/08 [address] [place] [address] documented as of this encounter
--- OUTSIDE RECORDS SUMMARY | 2022-02-11 09:54 | XMS_ITS | Encounter Summary ---
:1950 Author Organization [facility] Address [address] [place] [address] Care Team Providers Name Role Phone Lolly Oliveira MD Primary Care Provider Encounter Details Date Type Department Care Team Description 04/25/2009 Orders Only [facility] Janice Oliveira MD Laboratory Services - [facility] [place] [address] 790 [facility] [place] [address] [phone] Social History Tobacco Use Types Packs/Day Years [...] Analysis Performed At [facility] Pathology CYTOPATHOLOGY REPORT ? TOVA Report: ? [facility] Reports generated via electr onic interface contain original data; ? however they are lacking the format of the original report. ? Caution should be taken when reading/interpreting unformatted reports. ? Name: ? JING MOTT ? Accession #: ? [id number] ? : ? 1950 (Age: 58) ??F [...] Organization Address City/State/ZIP Code Phon e Number [facility] [address] [place] [address] SERVICES [facility] [address] [place] [address] documented in this encounter Visit Diagnoses Not on filedocumented in this encounter Care Teams Diamond Die Polisher Relationship Specialty Start Date End Date Lolly Oliveira MD PCP - General 11/13/[address] [place] [address] documented as of this encounter
--- OUTSIDE RECORDS SUMMARY | 2022-02-11 09:54 | XMS_ITS | Encounter Summary ---
:[address] [facility] Address [address] [place] [address] Care Team Providers Name Role Phone Lolly Oliveira MD Primary Care Provider Encounter Details Date Type Department Care Team Description 04/17/2005 Results Only [facility] - Lolly Mendoza MD conversion [address] [facility] [address] [place], [place] [address] [place] [address] [phone] Social History Tobacco Use Types Packs/Day Years [...] Ref Test Analysis Performed At [facility] Method Time Signature Pathology CYTOPATHOLOGY REPORT TOVA [...] ? ThinPrep Pap Test, Cervix/Endocervix, processed on SlatedPrep Imaging System, with manual evaluation Last Menstrual [...] Organization Address City/State/ZIP Code Phon e Number [facility] [address] [place] [address] SERVICES [facility] [address] [place] [address] documented in this encounter Visit Diagnoses Not on filedocumented in this encounter Care Teams Final Touch Up Painter Relationship Specialty Start Date End Date Lolly Oliveira MD PCP - General 11/13/08 [address] [place] [address] documented as of this encounter
--- OUTSIDE RECORDS SUMMARY | 2022-02-11 09:54 | XMS_ITS | Encounter Summary ---
:1950 Author Organization [facility] Address [address] [place] [address] Care Team Providers Name Role Phone Lolly Oliveira MD Primary Care Provider Encounter Details Date Type Department Care Team Description 03/06/2003 Results Only [facility] - Lolly Mendoza MD conversion 201 [facility] [address] [place], [place] [address] [place] [address] [phone] Social History Tobacco Use Types Packs/Day Years [...] Phon e Number [facility] [address] [place] [address] SERVICES [facility] [address] [place] [address] documented in this encounter Visit Diagnoses Not on filedocumented in this encounter Care Teams Muffle Worker Relationship Specialty Start Date End Date Lolly Oliveira MD PCP - General 11/13/08 [address] [place] [address] documented as of this encounter
--- OUTSIDE RECORDS SUMMARY | 2022-02-11 09:54 | XMS_ITS | Encounter Summary ---
:1950 Author Organization [facility] [place] [address] Care Team Providers Name Role Phone Lolly Oliveira MD Primary Care Provider Encounter Details Date Type Department Care Team Description 07/26/2013 Orders Only Radiology Eleno Christian MD [facility] [place] [address] DIAGNOSTIC RADIOLOGY [phone] [place], [place] [address] (Wo rk) Social History Tobacco [...] Office Visit Dermatology Clay Ramírez MD [address] [facility] DERMATOLOGY [place], [place] [address] (Wo rk) documented as of this encounter Visit Diagnoses Not on filedocumented in this encounter Care Teams Make Up Girl Relationship Specialty Start Date End Date Lolly Oliveira MD PCP - General 07/17/13 [address] [place] [address] documented as of this encounter
--- OUTSIDE RECORDS SUMMARY | 2022-02-11 09:54 | XMS_ITS | Encounter Summary ---
:1950 Author Organization [facility] [address] Care Team Providers Name Role Phone Lolly Oliveira MD Primary Care Provider Reason for Visit Reason Comments Follow-up Encounter Details Date Type Department Care Team Description 06/06/2021 Office Visit Dermatology at Clay Ramírez Psorias ishudson MD [address] [facility] Malcolm B DERMATOLOGY [place], [place] [address] [phone] Social History Tobacco Use Types Packs/Day Years [...] Office Visit Dermatology Clay Ramírez MD [address] [facility] DERMATOLOGY [place], [place] [address] (Wo rk) documented as of this encounter Visit Diagnoses Diagnosis Psoriasis, guttate Other psoriasis documented in this encounter Care Teams Associate Professor Of Engineering Relationship Specialty Start Date End Date Lolly Oliveira MD PCP - General 07/17/13 [address] [place] [address] documented as of this encounter
--- OUTSIDE RECORDS SUMMARY | 2022-02-11 09:54 | XMS_ITS | Encounter Summary ---
:1950 Author Organization [facility] Address [address] [place] [address] Care Team Providers Name Role Phone Lolly Oliveira MD Primary Care Provider Encounter Details Date Type Department Care Team Description 06/16/2012 Results Only [facility] Janice Oliveira MD Laboratory Services - [place] [place] [address] [facility] [place] [address] [phone] Social History Tobacco Use Types Packs/Day Years [...] Component Value Ref Test Analysis Performed At [facility] Method Time Signature Pathology CYTOPATHOLOGY REPORT [...] Address City/State/ZIP Code Phon e Number [facility] [address] [place] [address] SERVICES [facility] [address] [place] [address] documented in this encounter Visit Diagnoses Not on filedocumented in this encounter Care Teams Fullerette Relationship Specialty Start Date End Date Lolly Oliveira MD PCP - General 11/13/08 [address] [place] [address] documented as of this encounter
--- OUTSIDE RECORDS SUMMARY | 2022-02-11 09:54 | XMS_ITS | Encounter Summary ---
:1950 [place] [address] Care Team Providers Name Role Phone Unavailable Primary Care Provider Unavailable Encounter Details Date Type Department Care Team Description 07/04/2012 Orders Only Radiology Eleno Christian MD [facility] [place] [address] DIAGNOSTIC RADIOLOGY [phone] [place], [place] [address] (Wo rk) Social History Tobacco Use Types Packs/Day Years Used Date Smoking Tobacco: Never Assessed Sex Assigned at Date Recorded Not on file documented as of this encounter Plan of Treatment Upcoming Encounters Date Type Specialty Care Team Description 04/09/2022 Office Visit Dermatology Clay Ramírez MD [address] [place] [address] DERMATOLOGY [place], [place] [address] (Wo rk) documented as [...]
--- OUTSIDE RECORDS SUMMARY | 2022-02-11 09:54 | XMS_ITS | Encounter Summary ---
:1950 Author Organization [facility] [place] [address] Care Team Providers Name Role Phone Lolly Oliveira MD Primary Care Provider Encounter Details Date Type Department Care Team Description 01/14/2022 Telephone Dermatology at [facility] Nora Meredith LPN [address] [place] [address] Social History Tobacco Use [...] return to phototherapy. New order sent to [facility]. Reviewed with patient Dr. Mar recommendation. She agrees with plan of care. Advised patient order will be sent to [facility]. She voiced understanding. documented in this encounter Plan of Treatment Upcoming Encounters Date Type Specialty Care Team Description 04/09/2022 Office Visit Dermatology Clay Ramírez MD [address] [facility] DERMATOLOGY [place], [place] [address] (Wo rk) documented as of this encounter Visit Diagnoses Not on filedocumented in this encounter Care Teams Kiln Puller Relationship Specialty Start Date End Date Lolly Oliveira MD PCP - General 07/17/13 [address] [place] [address] documented as of this encounter
--- OUTSIDE RECORDS SUMMARY | 2022-02-11 09:54 | XMS_ITS | Encounter Summary ---
:1950 Author Organization [facility] Address [address] [place] [address] Care Team Providers Name Role Phone Lolly Oliveira MD Primary Care Provider Encounter Details Date Type Department Care Team Description 04/12/2007 Results Only [facility] - Lolly Mendoza MD conversion 201 [facility] [address] [place], [place] [address] [place] [address] [phone] Social History Tobacco Use Types Packs/Day Years [...] Component Value Ref Test Analysis Performed At [facility] Method Time Signature Pathology CYTOPATHOLOGY [...] ? ThinPrep Pap Test, Cervix/Endocervix, processed on [employer] ThinPrep Imaging System, with manual evaluation Last [...] and electronically signed by: ? Anahy Kelly, [facility](ASCP) ? Report Date: ??04/18/2007 12:31 End of Report Specimen (Source) Anatomical Location Collection Method / Collectio n Time Received Time / Laterality Volume 04/12/2007 04/13/2007 Lolly Oliveira MD PATHOLOGY ORDERABLES Performing Organization Address City/State/ZIP Code Phon e Number [facility] [address] [place] [address] SERVICES [facility] [address] [place] [address] documented in this encounter Visit Diagnoses Not on filedocumented in this encounter Care Teams Thermodynamics Engineer Relationship Specialty Start Date End Date Lolly Oliveira MD PCP - General 11/13/08 [address] [place], [place] [address] documented as of this encounter
--- OUTSIDE RECORDS SUMMARY | 2022-02-11 09:54 | XMS_ITS | Encounter Summary ---
:1950 Author Organization [facility] [place] [address] Care Team Providers Name Role Phone Lolly Oliveira MD Primary Care Provider Encounter Details Date Type Department Care Team Description 07/20/2013 Hospital Mammography at [facility] [address] Mammographic Encounter [facility] Lolly Oliveira MD [address] [place] [address] [place] [address] Social History Tobacco Use Types Packs/Day Years Used Date Smoking Tobacco: Never Assessed Sex Assigned at Date Recorded Not on file documented as of this encounter Plan of Treatment Upcoming Encounters Date Type Specialty Care Team Description 04/09/2022 Office Visit Dermatology Clay Ramírez MD [address] [facility] DERMATOLOGY [place], [place] [address] (Wo rk) documented as [...] does not layer and, therefore, are not self pay representative of milk of calcium. Again , [...] does not layer and, therefore, are not self pay representative of milk of calcium. Again , these have an amorphous and punctate appearance and remain indeterminate. Malcolm reotactic guided biopsy is recommended. Alia Fraire MD IMG MAMMO ORDERABLES documented in this encounter Visit Diagnoses Diagnosis Mammographic microcalcification documented in this encounter Care Teams Press Maintainer Relationship Specialty Start Date End Date Lolly Oliveira MD PCP - General 07/17/13 [address] [place] [address] documented as of this encounter
--- OUTSIDE RECORDS SUMMARY | 2022-02-11 09:54 | XMS_ITS | Encounter Summary ---
:1950 Author Organization [facility] Address [address] [place] [address] Care Team Providers Name Role Phone Lolly Oliveira MD Primary Care Provider Encounter Details Date Type Department Care Team Description 05/27/2021 Lab Requisition [facility] Iman Moran for other Pathology & M, DO general examination Laboratory Medicine - [address] [employer] [facility] [address] [place] [phone] Social History Tobacco Use Types Packs/Day Years [...] Component Value Ref Test Analysis Performed At [facility] Range Method Time Signature Note to The following 05/30/2021 [facility] MEDICAL Patient pathology results 13:31 [facility] have been LABORATORY interpreted [...] CENTER MEDICA L Electronically below, the 13:31 [facility] signed by attending LABORATORY [...] MEDICAL CENTER MEDICAL History diverticula and 13:31 [facility] polypectomy x1 LABORATORY SERVICES Gross A. 05/30/2021 [facility] MEDICAL Description Received in formalin sharmaine d with proper patient identification (initials J, K) and colon polyp x1 at 90 cm is a light pineda polypoid tissue measuring 0.2 x 0.2 x 0.2 cm. Submitted intact in A1. 13:31 [facility] LABORATORY MICKEY CARLOS(ASCP) 05/27/2021 19:11 SERVICES Performing Lab [facility] 05/30/2021 [facility] MEDIC AL LAB 13:31 [facility] LABORATORY SERVICES Scanned Images 05/30/2021 [facility] MEDICAL 13:31 [facility] LABORATORY SERVICES Specimen Anatomical Collection Method Collection Time Receive d Time (Source) Location / / Volume Laterality Tissue ENTIRE COLON / 05/27/2021 11:23 2 Unknown EDT 16:33 EDT Iman Moran DO PATHOLOGY ORDERABLES Performing Organization Address City/State/ZIP Code Phon e Number [facility] [address] [place] [address] SERVICES documented in this encounter Visit Diagnoses Diagnosis Encounter for other general examination documented in this encounter Care Teams Pneumatic Tube Fitter Relationship Specialty Start Date End Date Lolly Oliveira MD PCP - General 11/13/08 [address] [place], [place] [address] documented as of this encounter
== END 2022-03-07 23:59 | disposition home or self-care (01) ==
LOC: CR 09:50
PROVIDERS: PCP Family Medicine; Referring Provider Family Medicine; Visit Provider Internal Medicine Cardiovascular Disease
DX: I42.9 Cardiomyopathy, unspecified (principal); I50.9 Heart failure, unspecified; Z51.89 Encounter for other specified aftercare
CPT/HCPCS: S9472

== ENCOUNTER 2022-03-06 10:01 | Outpatient (CLI) | payer MEDICARE, SELFPAY | END 2022-03-06 10:02 | disposition home or self-care (01) | LOC: PRC 10:01 → PUVA 10:02 | PROVIDERS: PCP Family Medicine; Visit Provider Dermatology | DX: L40.4 Guttate psoriasis (principal) | CPT/HCPCS: 96900 ==

== ENCOUNTER 2022-03-10 08:15 | Outpatient (CLI) | payer MEDICARE, SELFPAY | END 2022-03-10 08:16 | disposition home or self-care (01) | LOC: PUVA 08:15 | PROVIDERS: PCP Family Medicine; Visit Provider Dermatology | DX: L40.4 Guttate psoriasis (principal) | CPT/HCPCS: 96900 ==

== ENCOUNTER 2022-03-13 09:28 | Outpatient (CLI) | payer MEDICARE, SELFPAY | END 2022-03-13 09:29 | disposition home or self-care (01) | LOC: PUVA 09:28 | PROVIDERS: PCP Family Medicine; Visit Provider Dermatology | DX: L40.4 Guttate psoriasis (principal) | CPT/HCPCS: 96900 ==

== ENCOUNTER 2022-03-16 09:19 | Outpatient (CLI) | payer MEDICARE, SELFPAY | END 2022-03-16 09:20 | disposition home or self-care (01) | LOC: PUVA 09:20 | PROVIDERS: PCP Family Medicine; Visit Provider Dermatology | DX: L40.4 Guttate psoriasis (principal) | CPT/HCPCS: 96900 ==

== ENCOUNTER 2022-03-17 07:30 | Outpatient (CLI) | payer MEDICARE, SELFPAY | END 2022-03-17 07:31 | disposition home or self-care (01) | LOC: PUVA 07:31 | PROVIDERS: PCP Family Medicine; Visit Provider Dermatology | DX: L40.4 Guttate psoriasis (principal) | CPT/HCPCS: 96900 ==

== ENCOUNTER 2022-03-23 07:43 | Outpatient (CLI) | payer MEDICARE, SELFPAY | END 2022-03-23 07:44 | disposition home or self-care (01) | LOC: PUVA 07:43 | PROVIDERS: PCP Family Medicine; Visit Provider Dermatology | DX: L40.4 Guttate psoriasis (principal) | CPT/HCPCS: 96900 ==

== ENCOUNTER 2022-03-27 08:59 | Outpatient (CLI) | payer MEDICARE, SELFPAY | END 2022-03-27 09:00 | disposition home or self-care (01) | LOC: PUVA 09:00 | PROVIDERS: PCP Family Medicine; Visit Provider Dermatology | DX: L40.4 Guttate psoriasis (principal) | CPT/HCPCS: 96900 ==

== ENCOUNTER 2022-03-30 10:06 | Outpatient (CLI) | payer MEDICARE, SELFPAY | END 2022-03-30 10:07 | disposition home or self-care (01) | LOC: PUVA 10:06 | PROVIDERS: PCP Family Medicine; Visit Provider Dermatology | DX: L40.4 Guttate psoriasis (principal) | CPT/HCPCS: 96900 ==

== ENCOUNTER 2022-03-31 11:16 | Outpatient (CLI) | payer MEDICARE, SELFPAY | END 2022-03-31 11:17 | disposition home or self-care (01) | LOC: PUVA 04-02 11:17 | PROVIDERS: PCP Family Medicine; Visit Provider Dermatology | DX: L40.4 Guttate psoriasis (principal) | CPT/HCPCS: 96900 ==

== ENCOUNTER 2022-04-03 07:31 | Outpatient (CLI) | payer MEDICARE, SELFPAY | END 2022-04-03 07:32 | disposition home or self-care (01) | LOC: PUVA 07:31 | PROVIDERS: PCP Family Medicine; Visit Provider Dermatology | DX: L40.4 Guttate psoriasis (principal) | CPT/HCPCS: 96900 ==

== ENCOUNTER 2022-04-06 10:05 | Outpatient (CLI) | payer MEDICARE, SELFPAY | END 2022-04-06 10:06 | disposition home or self-care (01) | LOC: PUVA 10:06 | PROVIDERS: PCP Family Medicine; Visit Provider Dermatology | DX: L40.4 Guttate psoriasis (principal) | CPT/HCPCS: 96900 ==

== ENCOUNTER 2022-04-06 10:11 | Outpatient (RCR) | payer MEDICARE, SELFPAY | END 2022-04-07 23:59 | disposition home or self-care (01) | LOC: CR 10:11 | PROVIDERS: PCP Family Medicine; Referring Provider Family Medicine; Visit Provider Internal Medicine Cardiovascular Disease | DX: I42.9 Cardiomyopathy, unspecified (principal); Z51.89 Encounter for other specified aftercare | CPT/HCPCS: S9472 ==

== ENCOUNTER 2022-04-07 08:00 | Outpatient (CLI) | payer MEDICARE, SELFPAY | END 2022-04-07 08:01 | disposition home or self-care (01) | LOC: PUVA 08:00 | PROVIDERS: PCP Family Medicine; Visit Provider Dermatology | DX: L40.4 Guttate psoriasis (principal) | CPT/HCPCS: 96900 ==

== ENCOUNTER 2022-04-10 08:59 | Outpatient (CLI) | payer MEDICARE, SELFPAY | END 2022-04-10 09:00 | disposition home or self-care (01) | LOC: PUVA 09:00 | PROVIDERS: PCP Family Medicine; Visit Provider Dermatology | DX: L40.4 Guttate psoriasis (principal) | CPT/HCPCS: 96900 ==

== ENCOUNTER 2022-04-13 09:47 | Outpatient (CLI) | payer MEDICARE, SELFPAY | END 2022-04-13 09:48 | disposition home or self-care (01) | LOC: PUVA 09:48 | PROVIDERS: PCP Family Medicine; Visit Provider Dermatology | DX: L40.4 Guttate psoriasis (principal) | CPT/HCPCS: 96900 ==

== ENCOUNTER 2022-04-16 01:23 | Outpatient (CLI) | payer MEDICARE, SELFPAY ==
--- NOTE | 2022-04-16 | DI.DEXA_ITS ---
Exam(s) XR DEXA BONE DENSITY W/WO LUDWIG EXAM: XR DEXA BONE DENSITY W/WO LUDWIG CLINICAL HISTORY: OSTEOPOROSIS, M81.0,PREVENTATIVE HEALTH CARE,Z00.00 TECHNIQUE: Routine DEXA evaluation of the lumbar spine, hip, or forearm. COMPARISON: Prior DEXA scan June 2012 FINDINGS: Performed on a HoloSyMynd unit. Lateral image: No compression fracture evident. Lumbar Spine total T-score: 1.0. Prior reading in 2012 was minus 0.1. Hip total T-score:-1.7. Independent reading at the level of the femoral neck yields T-score of -1.5 Forearm total T-score: -4.0 IMPRESSION: Bone mineral density measures in the osteopenia/osteoporosis range. Fracture risk is moderate-high. Note: Any spine fracture indicates 5x risk for subsequent spine fracture and 2x risk for subsequent h ip fracture. World Health Organization criteria for BMD interpretation classify patients: Normal...... T- Score at or above -1.0 Osteopenic... T- Score between -1.0 and -2.5 Osteoporosis... T-Score at or below -2.5
== END 2022-04-16 01:43 ==
PROVIDERS: PCP Family Medicine; Visit Provider Family Medicine
DX: Z13.820 Encounter for screening for osteoporosis (principal); M85.89 Other specified disorders of bone density and structure, multiple sites; M81.0 Age-related osteoporosis without current pathological fracture
CPT/HCPCS: 77080

== ENCOUNTER 2022-04-16 15:52 | Outpatient (CLI) | payer MEDICARE, SELFPAY ==
[2022-04-16 16:04] LABS: Hemoglobin A1C 5.6 % (<5.7)
[2022-04-16 16:37] LABS: ALT 18 U/L (14-59); AST 24 U/L (15-37); Albumin 3.8 g/dL (3.4-5.0); Alkaline Phosphatase 124 U/L (46-116); Anion Gap 8.6 mmol/L (3-11); BUN 33 mg/dL (7-18); Bilirubin, Total 0.3 mg/dL (0.2-1.0); CO2 25.4 mmol/L (21.0-32.0); CREATININE 1.5 mg/dL (0.55-1.02); Chloride 107 mmol/L (98-107); Creatine Kinase 63 U/L (26-192); Estimated GFR 36.57 (mL/min/1.73m2); Glucose 97 mg/dL (74-106); Potassium 4.9 mmol/L (3.5-5.1); Sodium 141 mmol/L (136-145); Total Protein 7.3 g/dL (6.4-8.2)
== END 2022-04-16 15:53 | disposition home or self-care (01) ==
LOC: LBO 16:01
PROVIDERS: PCP Family Medicine; Visit Provider Family Medicine
DX: I50.9 Heart failure, unspecified (principal); I10 Essential (primary) hypertension; E78.5 Hyperlipidemia, unspecified; I42.9 Cardiomyopathy, unspecified
CPT/HCPCS: 36415; 80053; 82550; 83036

== ENCOUNTER 2022-04-17 08:52 | Outpatient (CLI) | payer MEDICARE, SELFPAY | END 2022-04-17 08:53 | disposition home or self-care (01) | LOC: PUVA 08:53 | PROVIDERS: PCP Family Medicine; Visit Provider Dermatology | DX: L40.4 Guttate psoriasis (principal) | CPT/HCPCS: 96900 ==

== ENCOUNTER 2022-04-20 09:52 | Outpatient (CLI) | payer MEDICARE, SELFPAY | END 2022-04-20 09:53 | disposition home or self-care (01) | LOC: PUVA 09:52 | PROVIDERS: PCP Family Medicine; Visit Provider Dermatology | DX: L40.4 Guttate psoriasis (principal) | CPT/HCPCS: 96900 ==

== ENCOUNTER 2022-04-24 10:03 | Outpatient (CLI) | payer MEDICARE, SELFPAY | END 2022-04-24 10:04 | disposition home or self-care (01) | LOC: PUVA 10:03 | PROVIDERS: PCP Family Medicine; Visit Provider Dermatology | DX: L40.4 Guttate psoriasis (principal) | CPT/HCPCS: 96900 ==

== ENCOUNTER 2022-04-27 07:27 | Outpatient (CLI) | payer MEDICARE, SELFPAY | END 2022-04-27 07:28 | disposition home or self-care (01) | LOC: PUVA 07:27 | PROVIDERS: PCP Family Medicine; Visit Provider Dermatology | DX: L40.4 Guttate psoriasis (principal) | CPT/HCPCS: 96900 ==

== ENCOUNTER 2022-04-28 01:12 | Outpatient (CLI) | payer MEDICARE, SELFPAY ==
--- NOTE | 2022-04-28 07:31 | DI.US_ITS ---
APPROVED REPORT EXAM: Comprehensive 2D, Doppler, and color-flow Echocardiogram Patient Location: Out-Patient Biomedical Instrument Technician: Soco Dong RDCS (AE) Indications: Cardiomyopathy, LBBB, SOB Other Information Study Quality: Adequate Conclusion Left ventricle is mildly dilated. Wall thickness is normal. Estimated ejection fraction is 15 to 20 % with global hypokinesis Normal right ventricular size and systolic function Both atria are normal in size Aortic valve is mildly sclerotic and trileaflet without stenosis or regurgitation Mild mitral annular calcification. Moderate mitral regurgitation Normal tricuspid valve with trace regurgitation. Estimated right ventricular systolic pressure is 19 mmHg Mildly dilated ascending aorta Wall motion Left Ventricle Left ventricle is moderately dilated. Left ventricular systolic function is severely decreased. There is normal left ventricular wall thickness. There is global hypokinesis There is no ventricular septa l defect visualized. LVEF is 15-20%. Right Ventricle The right ventricle is normal size. The right ventricular systolic function is normal. The RVSP is 18 .8mmHg. Atria The left atrium size is normal. The right atrium size is normal. The interatrial septum is intact wit h no evidence for an atrial septal defect. Aortic Valve The Aortic valve is mildly sclerotic. Aortic valve is trileaflet. There is no aortic valvular stenosi s. No aortic regurgitation is present. Mitral Valve Mild mitral annular calcification. No evidence of mitral valve stenosis. Moderate mitral regurgitati on. Tricuspid Valve The tricuspid valve is normal in structure. There is no tricuspid valve stenosis. Trace tricuspid reg urgitation. Pulmonic Valve The pulmonary valve is normal in structure. There is no pulmonic valvular stenosis. Trace pulmonic re gurgitation. Great Vessels The aortic root is normal in size. The ascending aorta is mildly dilated. Aortic arch is normal in ca liber. IVC is normal in size and collapses >50% with inspiration. Pericardium There is no pericardial effusion. 2D Dimensions IVSD d PLAX 0.94 cm F: 0.6-1.0 LV Vol A2C d MOD 160.3 mL LVPW d PLAX 0.95 cm F: 0.6 - 1.0 LV Vol A4C d MOD 140.8 mL LVID d PLAX 5.70 cm F: 3.8 - 5.2 LA vol/ BSA A2C s A-L 18.8 mL/m2 LVDs 5.25 cm F: 2.2 - 3.5 LA vol/ BSA A4C s A-L 15.8 mL/m2 Ao Root d 2.88 cm F: 2.7 - 3.3 LA Vol/ BSA Biplane s A-L 18.1 mL/m2 RA Area A4C 8.42 cm2 LA Area A4C s MOD 13.82 cm2 RA Vol/ BSA A4C s A-L 9.0 mL/m2 LA Area A2C s MOD 14.34 cm2 Ao Asc Diam d 3.57 cm F: 2.3 - 3.1 LV EF A4C MOD 16.2 % LV EF Teichholz 15.7 % LV EF A2C MOD 19.6 % LVEF (Ayala's) 17.46 % F: 54 - 74 LV EF Biplane MOD 17.5 % LV Volume 114.12 mL F: 46 - 106 SV 26.38 mL LV Volume Index 58.22 mL/m2 F: 29 - 61 SV Index 13.47 mL/m2 LV Vol Biplane MOD 151.1 mL FS 7.15 % M-Mode TAPSE 2.81 cm (M/F) >1.7 LV Diastology MV E' medial 0.078 (>0.07 m/s) MV E' lateral 0.054 (>0.1 m/s) Aortic Valve LVOT Area 3.55 cm2 AoV Area Vmax 2.83 cm2 LVOT Vmax 1.11 m/s AoV Area/ BSA (Vmax) 1.45 cm2/m2 LVOT Mean Erick. 0.75 m/s UMBERTO Mean Erick. 2.63 cm2 LVOT Peak Grad 5.0 mmHg UMBERTO Mean Erick. Index 1.34 cm2/m2 LVOT Mean Grad 2.6 mmHg LVOT VTI 0.231 m LVOT Diam s 2.10 cm AoV Vmax 1.40 m/s Velocity Ratio 0.79 AoV Mean Erick. 1.02 m/s AoV Peak Grad 7.8 mmHg LVOT SV 81.88 mL AoV Mean Grad 4.5 mmHg AoV VTI 0.271 m AoV Area VTI 3.02 cm2 AoV Area/ BSA (VTI) 1.54 cm/m2 Mitral Valve MV VTI 0.274 m MR Vmax 5.35 m/s MV VTI Annulus 0.260 m MR VTI 2.308 m MV Area VTI 2.85 (4.0-6.0 cm2) MR Peak Grad 114.6 mmHg MR Mean Grad 75.2 mmHg Pulmonary Valve PV Vmax 0.87 (0.5-1.5 m/s) RVOT Peak Gr. 1.64 mmHg PV Peak Grad 3.0 mmHg RVOT Mean Gr. 0.90 mmHg PV Mean Grad 1.6 mmHg RVOT VTI 0.118 m PV VTI 0.173 m RVOT Vmax 0.64 m/s Tricuspid Valve TR Peak Grad 15.7 mmHg TR Vmax 1.98 m/s RA Pressure 3.00 mmHg RVSP (TR) 18.8 mmHg
== END 2022-04-28 01:32 ==
LOC: DI 01:13
PROVIDERS: PCP Family Medicine; Visit Provider Internal Medicine Cardiovascular Disease
DX: I42.9 Cardiomyopathy, unspecified (principal); I44.7 Left bundle-branch block, unspecified; Z86.79 Personal history of other diseases of the circulatory system
CPT/HCPCS: 93306; 99214

== ENCOUNTER 2022-04-29 09:00 | Outpatient (RCR) | payer MEDICARE, SELFPAY | END 2022-05-05 23:59 | disposition home or self-care (01) | LOC: CR 09:00 | PROVIDERS: PCP Family Medicine; Referring Provider Family Medicine; Visit Provider Internal Medicine Cardiovascular Disease | DX: I42.9 Cardiomyopathy, unspecified (principal); I50.89 Other heart failure; I10 Essential (primary) hypertension | CPT/HCPCS: 96900; S9472 ==

== ENCOUNTER 2022-05-01 09:58 | Outpatient (CLI) | payer MEDICARE, SELFPAY | END 2022-05-01 09:59 | disposition home or self-care (01) | LOC: PUVA 09:59 | PROVIDERS: PCP Family Medicine; Visit Provider Dermatology | DX: L40.4 Guttate psoriasis (principal) | CPT/HCPCS: 96900 ==

== ENCOUNTER 2022-05-04 09:58 | Outpatient (CLI) | payer MEDICARE, SELFPAY | END 2022-05-04 09:59 | disposition home or self-care (01) | LOC: PUVA 09:58 | PROVIDERS: PCP Family Medicine; Visit Provider Dermatology | DX: L40.4 Guttate psoriasis (principal) | CPT/HCPCS: 96900 ==

== ENCOUNTER → 2022-05-06 09:18 | Outpatient (BNVA) | payer MEDICARE, SELFPAY | PROVIDERS: PCP Family Medicine; Referring Provider Family Medicine; Visit Provider Internal Medicine Cardiovascular Disease | DX: I44.7 Left bundle-branch block, unspecified (principal); I42.9 Cardiomyopathy, unspecified | CPT/HCPCS: 99215 ==

== ENCOUNTER 2022-05-08 08:42 | Outpatient (CLI) | payer MEDICARE, SELFPAY | END 2022-05-08 08:43 | disposition home or self-care (01) | LOC: PUVA 08:43 | PROVIDERS: PCP Family Medicine; Visit Provider Dermatology | DX: L40.4 Guttate psoriasis (principal) | CPT/HCPCS: 96900 ==

== ENCOUNTER 2022-05-11 09:48 | Outpatient (CLI) | payer MEDICARE, SELFPAY | END 2022-05-11 09:49 | disposition home or self-care (01) | LOC: PUVA 09:48 | PROVIDERS: PCP Family Medicine; Visit Provider Dermatology | DX: L40.4 Guttate psoriasis (principal) | CPT/HCPCS: 96900 ==

== ENCOUNTER 2022-05-15 08:22 | Outpatient (CLI) | payer MEDICARE, SELFPAY | END 2022-05-15 08:23 | disposition home or self-care (01) | LOC: PUVA 08:22 | PROVIDERS: PCP Family Medicine; Visit Provider Dermatology | DX: L40.4 Guttate psoriasis (principal) | CPT/HCPCS: 96900 ==

== ENCOUNTER 2022-05-18 07:52 | Outpatient (CLI) | payer MEDICARE, SELFPAY | END 2022-05-18 07:53 | disposition home or self-care (01) | LOC: PUVA 07:52 | PROVIDERS: PCP Family Medicine; Visit Provider Dermatology | DX: L40.4 Guttate psoriasis (principal) | CPT/HCPCS: 96900 ==

== ENCOUNTER 2022-05-22 10:03 | Outpatient (CLI) | payer MEDICARE, SELFPAY | END 2022-05-22 10:04 | disposition home or self-care (01) | LOC: PUVA 10:03 | PROVIDERS: PCP Family Medicine; Visit Provider Dermatology | DX: L40.4 Guttate psoriasis (principal) | CPT/HCPCS: 96900 ==

== ENCOUNTER 2022-05-29 07:18 | Outpatient (CLI) | payer MEDICARE, SELFPAY | END 2022-05-29 07:19 | disposition home or self-care (01) | LOC: PUVA 07:18 | PROVIDERS: PCP Family Medicine; Visit Provider Dermatology | DX: L40.4 Guttate psoriasis (principal) | CPT/HCPCS: 96900 ==

== ENCOUNTER 2022-06-05 08:45 | Outpatient (CLI) | payer MEDICARE, SELFPAY | END 2022-06-05 08:46 | disposition home or self-care (01) | LOC: PUVA 08:46 | PROVIDERS: PCP Family Medicine; Visit Provider Dermatology | DX: L40.4 Guttate psoriasis (principal) | CPT/HCPCS: 96900 ==

== ENCOUNTER 2022-06-05 13:12 | Outpatient (RCR) | payer SELFPAY ==
[2022-05-06 11:09] VITALS: BP 118/69; PULSE 90
[2022-05-08 11:08] VITALS: BP 112/57; PULSE 80
[2022-05-13 11:02] VITALS: BP 114/54; PULSE 49
[2022-05-15 10:57] VITALS: BP 94/48; PULSE 77
[2022-05-20 10:13] VITALS: BP 90/50; PULSE 68
[2022-05-22 10:27] VITALS: BP 125/79; PULSE 77
[2022-05-27 12:07] VITALS: BP 113/51
[2022-06-03 12:50] VITALS: BP 116/58; PULSE 78; O2SAT 96
[2022-06-05 12:55] VITALS: BP 105/55; PULSE 54
== END 2022-06-05 23:59 | disposition home or self-care (01) ==
LOC: CR 13:12
PROVIDERS: PCP Family Medicine; Visit Provider Internal Medicine Cardiovascular Disease
DX: R69 Illness, unspecified (principal)

== ENCOUNTER 2022-06-12 07:43 | Outpatient (CLI) | payer MEDICARE, SELFPAY | END 2022-06-12 07:44 | disposition home or self-care (01) | LOC: PUVA 07:44 | PROVIDERS: PCP Family Medicine; Visit Provider Dermatology | DX: L40.4 Guttate psoriasis (principal) | CPT/HCPCS: 96900 ==

== ENCOUNTER 2022-06-19 07:23 | Outpatient (CLI) | payer MEDICARE, SELFPAY | END 2022-06-19 07:24 | disposition home or self-care (01) | LOC: PUVA 07:23 | PROVIDERS: PCP Family Medicine; Visit Provider Dermatology | DX: L40.4 Guttate psoriasis (principal) | CPT/HCPCS: 96900 ==

== ENCOUNTER 2022-06-26 07:42 | Outpatient (CLI) | payer MEDICARE, SELFPAY | END 2022-06-26 07:43 | disposition home or self-care (01) | LOC: PUVA 07:42 | PROVIDERS: PCP Family Medicine; Visit Provider Dermatology | DX: L40.4 Guttate psoriasis (principal) | CPT/HCPCS: 96900 ==

== ENCOUNTER 2022-07-03 10:51 | Outpatient (RCR) | payer SELFPAY ==
[2022-06-06 00:15] VITALS: BP 105/55; PULSE 54
[2022-06-10 11:12] VITALS: BP 104/62; PULSE 79
[2022-06-12 11:10] VITALS: BP 120/59; PULSE 83
[2022-06-17 13:16] VITALS: BP 133/64; PULSE 74
[2022-06-19 10:57] VITALS: BP 117/57; PULSE 77
[2022-06-24 11:09] VITALS: BP 100/53; PULSE 90
[2022-06-26 10:50] VITALS: BP 123/59; PULSE 69
[2022-07-01 11:08] VITALS: BP 127/67; PULSE 76
== END 2022-07-05 23:59 | disposition home or self-care (01) ==
LOC: CR 10:51
PROVIDERS: PCP Family Medicine; Visit Provider Internal Medicine Cardiovascular Disease
DX: R69 Illness, unspecified (principal)

== ENCOUNTER 2022-07-08 11:15 | Outpatient (REF) | payer MEDICARE, SELFPAY ==
[2022-07-08 16:17] LABS: Bilirubin Negative (Negative); Blood Trace-intact (Negative); Clarity Clear (Clear); Glucose 500 mg/dL (Negative); Ketones Negative (Negative); Leukocyte Esterase Negative (Negative); Nitrite Negative (Negative); Specific Gravity 1.015 (1.005-1.025); Urobilinogen 0.2 mg/dL (Up to 0.2)
[2022-07-08 16:45] LABS: Bacteria Negative HPF (Negative); C & S Indicated? No; Casts 0-2 Hyaline LPF (Negative); Crystals Negative HPF (Negative); Epithelial Cells Rare HPF (Negative); Mucus Negative (Negative); RBC 0-2 HPF (0-2); WBC 0-2 HPF (0-5)
== END 2022-07-08 11:16 | disposition home or self-care (01) ==
LOC: NCHCN 11:15
PROVIDERS: PCP Family Medicine; Visit Provider Nurse Practitioner Family
DX: L29.2 Pruritus vulvae (principal); R30.0 Dysuria; R30.9 Painful micturition, unspecified
CPT/HCPCS: 81003; 81015; 87480; 87510; 87660

== ENCOUNTER 2022-08-05 11:05 | Outpatient (RCR) | payer SELFPAY ==
[2022-07-06 00:06] VITALS: BP 127/67; PULSE 76
[2022-07-08 15:33] VITALS: BP 116/55; PULSE 84
[2022-07-10 11:03] VITALS: BP 127/52; PULSE 66
[2022-07-15 11:24] VITALS: BP 108/57; PULSE 86
[2022-07-17 11:00] VITALS: BP 135/63; PULSE 78
[2022-07-22 13:33] VITALS: BP 125/66; PULSE 95
[2022-07-29 11:09] VITALS: BP 130/67; PULSE 80
[2022-08-05 11:12] VITALS: BP 131/57; PULSE 75
[2022-08-07 11:20] VITALS: BP 109/57; PULSE 72
== END 2022-08-05 23:59 | disposition home or self-care (01) ==
LOC: CR 11:05
PROVIDERS: PCP Family Medicine; Visit Provider Internal Medicine Cardiovascular Disease

== ENCOUNTER → 2022-08-12 13:23 | Outpatient (BNVA) | payer MEDICARE, SELFPAY | PROVIDERS: PCP Family Medicine; Referring Provider Family Medicine; Visit Provider Internal Medicine Cardiovascular Disease | DX: I10 Essential (primary) hypertension (principal); Z45.02 Encounter for adjustment and management of automatic implantable cardiac defibrillator | CPT/HCPCS: 93284 ==

== ENCOUNTER → 2022-08-31 10:41 | Outpatient (BNVA) | payer MEDICARE, SELFPAY | PROVIDERS: PCP Family Medicine; Referring Provider Family Medicine; Visit Provider Internal Medicine Cardiovascular Disease | DX: Z95.810 Presence of automatic (implantable) cardiac defibrillator (principal); I42.9 Cardiomyopathy, unspecified; Z86.79 Personal history of other diseases of the circulatory system | CPT/HCPCS: 99213 ==

== ENCOUNTER 2022-09-03 10:46 | Outpatient (REF) | payer MEDICARE, SELFPAY | END 2022-09-03 10:47 | disposition home or self-care (01) | LOC: NCHCN 10:46 | PROVIDERS: PCP Family Medicine; Visit Provider Family Medicine | DX: L29.8 Other pruritus (principal) | CPT/HCPCS: 87480; 87510; 87660 ==

== ENCOUNTER 2022-09-04 11:31 | Outpatient (RCR) | payer SELFPAY ==
[2022-08-06 00:14] VITALS: BP 131/57; PULSE 75
[2022-08-19 11:09] VITALS: BP 120/60; PULSE 67
[2022-08-26 11:12] VITALS: BP 166/55; PULSE 65
[2022-08-28 11:09] VITALS: BP 118/60; PULSE 73
[2022-09-02 11:48] VITALS: BP 132/66; PULSE 68
[2022-09-04 11:34] VITALS: BP 124/61; PULSE 72
== END 2022-09-04 23:59 | disposition home or self-care (01) ==
LOC: CR 11:31
PROVIDERS: PCP Family Medicine; Visit Provider Internal Medicine Cardiovascular Disease
DX: R69 Illness, unspecified (principal)

== ENCOUNTER 2022-09-07 02:58 | Outpatient (CLI) | payer MEDICARE, SELFPAY ==
[2022-09-07 12:42] LABS: HCT 44.7 % (36.0-46.0); HGB 14.1 g/dL (11.2-15.7); MCH 29.7 pg (27.0-33.0); MCHC 31.5 % (32.0-36.0); MCV 94 fL (80-95); Platelet Count 205 10^3/uL (130-400); RBC 4.74 10^6/uL (3.93-5.22); RDW 12.9 % (11.7-14.6); RDW-SD 44.5 fL; WBC 7.29 10^3/uL (4.4-10.8)
[2022-09-07 12:50] LABS: Anion Gap 8.5 mmol/L (3-11); BUN 27 mg/dL (7-18); CO2 28.5 mmol/L (21.0-32.0); CREATININE 1.4 mg/dL (0.55-1.02); Calcium 9.3 mg/dL (8.5-10.1); Chloride 104 mmol/L (98-107); Estimated GFR 39.48 (mL/min/1.73m2); Glucose 93 mg/dL (74-106); Sodium 141 mmol/L (136-145)
[2022-09-07 12:55] LABS: Hemoglobin A1C 5.5 % (<5.7)
== END 2022-09-07 02:59 | disposition home or self-care (01) ==
LOC: LOS 02:58
PROVIDERS: PCP Family Medicine; Visit Provider Family Medicine
DX: R81 Glycosuria (principal); L29.8 Other pruritus
CPT/HCPCS: 36415; 80048; 85027; 83036

== ENCOUNTER → 2022-11-03 01:23 | Outpatient (CLI) | payer MEDICARE, SELFPAY ==
--- NOTE | 2022-11-03 08:15 | DI.US_ITS ---
APPROVED REPORT EXAM: Comprehensive 2D, Doppler, and color-flow Echocardiogram Patient Location: Out-Patient Scrap Drop Crane Operator: Juan Alberto Amado RDCS (AE) Indications: Cardiomyopathy, biventricular ICD in place, essential HTN Other Information Study Quality: Adequate. Technically limited study due to body habitus. Conclusion Normal left ventricular wall thickness and chamber size. Estimated ejection fraction is 35%. There is global hypokinesis Normal right atrium and right ventricle. Device lead noted in the right heart Left atrium is mildly dilated Mildly sclerotic trileaflet aortic valve without stenosis or regurgitation Mitral annular calcification. Mild mitral regurgitation Normal tricuspid valve with mild regurgitation. Estimated right ventricular systolic pressure is 25 mmHg Mildly dilated ascending aorta 3.48 cm Wall motion Left Ventricle The left ventricle is normal size. Left ventricular systolic function is moderately decreased. Mild c oncentric left ventricular hypertrophy. There is global hypokinesis of the left ventricle. There is n o ventricular septal defect visualized. LVEF is 35%. Right Ventricle The right ventricle is normal size. Right ventricular systolic function is grossly normal. The RVSP i s 25 mmHg. Device lead is present in the right ventricle. Atria The left atrium is mildly dilated The right atrium size is normal. The interatrial septum is intact w ith no evidence for an atrial septal defect. Aortic Valve The Aortic valve is mildly sclerotic. Aortic valve is trileaflet. There is no aortic valvular stenosi s. No aortic regurgitation is present. Mitral Valve Moderate mitral annular calcification. No evidence of mitral valve stenosis. Mild mitral regurgitatio n. Tricuspid Valve The tricuspid valve is normal in structure. There is no tricuspid valve stenosis. Mild tricuspid regu rgitation. Pulmonic Valve The pulmonary valve is normal in structure. There is no pulmonic valvular stenosis. There is no pulmo edwina valvular regurgitation. Great Vessels The aortic root is normal in size. The ascending aorta is mildly dilated. Aortic arch is not well vis ualized. IVC is normal in size and collapses >50% with inspiration. Pericardium There is no pericardial effusion. 2D Dimensions IVSD d PLAX 1.24 cm F: 0.6-1.0 Ao Root d 3.19 cm F: 2.7 - 3.3 LVPW d PLAX 1.21 cm F: 0.6 - 1.0 Ao Asc Diam d 3.48 cm F: 2.3 - 3.1 LVID d PLAX 4.95 cm F: 3.8 - 5.2 LVDs 4.16 cm F: 2.2 - 3.5 LV EF Teichholz 33.6 % FS 16.01 % LV EDV (Teich) 115.7 mL LV ESV (Teich) 76.8 mL Stroke Vol Index (Teich) 19.62 M-Mode TAPSE 1.90 cm (M/F) >1.7 Auto EF LV EDV A4C 108.2 mL LV EDV A2C 130.3 mL LV EDV BP 118.1 mL LV ESV A4C 72.8 mL LV ESV A2C 84.4 mL LV ESV BP 79.3 mL LVEF(%) A4C 32.8 % LVEF(%) A2C 35.2 % LVEF(%) BP 32.8 % LV SV A4C 35.5 ml LV SV A2C 45.9 ml LV SV BP 38.8 ml LV CO A4C 2.1 L/min LV CO A2C 2.8 L/min LV CO BP 2.4 L/min HR A4C 60.10 BPM HR A2C 60.20 BPM LV EDV Index (BP) LA Volume LA Length A4C 4.3 cm LA Length A2C LA Area A4C s 10.62 cm2 LA Area A2C s LA Vol A4C A-L 22.09 mL LA Vol A2C A-L LA Vol Biplane A-L LA Vol A4C MOD 19.5 mL LA Vol A2C MOD LA Vol BP MOD RA Volume RA Area A4C 6.0 cm2 RA ESV A4C (A-L) 8.8mL RA Vol/BSA A4C A-L RA Length A4C 3.4 cm RA ESV A4C (MOD) 8.1mL LV Diastology MV E' medial 0.055 (>0.07 m/s) MV E Vmax 0.57 (0.4-1.3 m/s) MV E/E' MED 10.44 (<14) MV A Vmax 1.05 (0.4-1.3 m/s) MV E' lateral 0.036 (>0.1 m/s) E/A Ratio 0.5 MV E/E' LAT 16.02 (<14) MV E' Average 0.045 m/s MV E/E'(average) 12.64 Aortic Valve AoV Vmax 1.09 m/s LVOT Vmax 0.98 m/s AoV Peak Grad 4.7 mmHg LVOT Peak Grad 3.9 mmHg AoV Area (Vmax) 2.24 cm2 LVOT VTI 0.255 m AoV VTI 0.277 m LVOT Mean Grad 2.1 mmHg AoV Mean Erick. 0.75 m/s LVOT SV 63.36 mL AoV Mean Grad 2.5 mmHg LVOT Diam s 1.75 cm AoV Area (VTI) 2.28 cm2 Velocity Ratio 0.90 Mitral Valve MV DT 237 (160-240 msec) Pulmonary Valve PV Vmax 0.93 (0.5-1.5 m/s) RVOT Vmax 0.65 m/s PV Peak Grad 3.5 mmHg RVOT Peak Gr. 1.7 mmHg PV Mean Erick 0.56 m/s RVOT VTI 0.150 m PV Mean Grad 1.5 mmHg RVOT Mean Gr. 0.9 mmHg Tricuspid Valve RA Pressure 3.00 mmHg TR Vmax 2.34 m/s TR Peak Grad 21.9 mmHg RVSP (TR) 25.0 mmHg
== END ==
PROVIDERS: PCP Family Medicine; Visit Provider Internal Medicine Cardiovascular Disease
DX: I10 Essential (primary) hypertension (principal)
CPT/HCPCS: 93306

== ENCOUNTER → 2022-11-10 01:25 | Outpatient (CLI) | payer MEDICARE, SELFPAY ==
--- NOTE | 2022-11-10 | DI.MAMMO_ITS ---
Exam(s) MAMMO SCREENING EXAM: MAMMO SCREENING CLINICAL HISTORY: SCREENING, Z12.31. TECHNIQUE: Bilateral full field digital CC and MLO mammographic images were obtained with 3D tomosyn thesis and utilizing computer aided detection (CAD). COMPARISON: Prior mammograms were reviewed. Significant family history. The patient has 2 sisters who have been diagnosed with breast cancer. FINDINGS: There has been no significant change in the appearance and distribution of the fibroglandular tissue. Small benign-appearing noncalcified nodule in retroareolar region left breast remains unchanged from prior mammograms. Multiple unchanged benign-appearing microcalcifications are again noted in a band of tissue towards t he lateral aspect of the right breast, unchanged. There are no new spiculated masses nor malignant appearing microcalcification groups. There is no significant architectural distortion nor skin thickening-retraction. IMPRESSION: Stable benign-appearing findings. No radiographic evidence of malignancy. BI-RADS Category 2 - Benign Findings Breast Density - Category B - Scattered areas of fibroglandular density Breast density Category C or D implies that the patient has dense breast tissue. Dense breast tissue can make it harder to find cancer on a mammogram. Dense breast tissue is also associated with an incr eased risk of breast cancer. This information about the result of the mammogram report was provided to the patient to raise their awareness. Use this report when you speak with the patient about their risks for breast cancer, which includes their family history. At that time, you may recommend additional screening tests (Ultrasoun d or MRI) as these tests may add significant information. A negative radiographic report should not delay biopsy if a dominant or clinically suspicious mass is present. Up to ten percent of cancers are not identified on mammography. A negative report may reinforce clinical impression. Adenosis and dense breasts may obscure an underlying neoplasm. False positive reports average 6 to 10%. Patient will receive a letter notifying them of these results.
== END ==
PROVIDERS: PCP Family Medicine; Visit Provider Family Medicine
DX: Z12.31 Encounter for screening mammogram for malignant neoplasm of breast (principal)
CPT/HCPCS: 77063; 77067

== ENCOUNTER 2022-11-11 09:18 | Outpatient (CLI) | payer MEDICARE, SELFPAY ==
--- NOTE | 2022-11-11 09:15 | RT.EKG_ITS ---
APPROVED REPORT Exam: Resting ECG Reason for Exam: cardiac evaluation Patient Location: O HR:80 bpm ECG Measurements Heart Rate 80 AXIS OR 137 P -1 QRSd 109 QRS 133 QT 418 T 123 QTc 483 Conclusion Atrial-sensed ventricular-paced rhythm...ventricular pacing tracks p-waves No further analysis attempted due to paced rhythm Artifact in lead(s) I,II,III,aVR,aVL,aVF and baseline wander in lead(s) V6
== END 2022-11-11 09:19 | disposition home or self-care (01) ==
LOC: DI.CARD 09:18
PROVIDERS: PCP Family Medicine; Visit Provider Internal Medicine Cardiovascular Disease
DX: Z95.810 Presence of automatic (implantable) cardiac defibrillator (principal); Z13.6 Encounter for screening for cardiovascular disorders
CPT/HCPCS: 93010

== ENCOUNTER → 2022-11-11 13:06 | Outpatient (BNVA) | payer MEDICARE, SELFPAY | PROVIDERS: PCP Family Medicine; Visit Provider Internal Medicine Cardiovascular Disease | DX: Z95.810 Presence of automatic (implantable) cardiac defibrillator (principal) | CPT/HCPCS: 93005; 93284 ==

== ENCOUNTER 2022-12-04 11:08 | Outpatient (RCR) | payer SELFPAY ==
[2022-11-13 11:04] VITALS: BP 118/57; PULSE 79
[2022-11-20 11:00] VITALS: BP 133/70; PULSE 66
[2022-11-25 14:53] VITALS: BP 121/63; PULSE 77
[2022-11-27 12:51] VITALS: BP 117/66; PULSE 65
[2022-12-02 11:00] VITALS: BP 114/58; PULSE 61
[2022-12-04 11:12] VITALS: BP 119/63; PULSE 63
== END 2022-12-05 23:59 | disposition home or self-care (01) ==
LOC: CR 11:08
PROVIDERS: PCP Family Medicine; Visit Provider Internal Medicine Cardiovascular Disease
DX: R69 Illness, unspecified (principal)

== ENCOUNTER 2022-12-31 04:06 | Outpatient (CLI) | payer MEDICARE, SELFPAY ==
[2022-12-31 15:24] LABS: HCT 43.9 % (36.0-46.0); HGB 13.9 g/dL (11.2-15.7); MCH 29.6 pg (27.0-33.0); MCHC 31.7 % (32.0-36.0); MCV 94 fL (80-95); MPV 9.3 fL (8.0-11.0); Platelet Count 217 10^3/uL (130-400); RBC 4.69 10^6/uL (3.93-5.22); RDW 13.2 % (11.7-14.6); RDW-SD 45.3 fL; WBC 6.53 10^3/uL (4.4-10.8)
[2022-12-31 16:11] LABS: Anion Gap 5.9 mmol/L (3-11); BUN 23 mg/dL (7-18); CO2 29.1 mmol/L (21.0-32.0); CREATININE 1.3 mg/dL (0.55-1.02); Calcium 9.1 mg/dL (8.5-10.1); Chloride 104 mmol/L (98-107); Estimated GFR 43.15 (mL/min/1.73m2); Glucose 98 mg/dL (74-106); Potassium 4.2 mmol/L (3.5-5.1); Sodium 139 mmol/L (136-145)
== END 2022-12-31 04:07 | disposition home or self-care (01) ==
LOC: LBO 04:06
PROVIDERS: PCP Family Medicine; Visit Provider Student in an Organized Health Care Education/Training Program
DX: M16.11 Unilateral primary osteoarthritis, right hip (principal); Z01.818 Encounter for other preprocedural examination
CPT/HCPCS: 36415; 80048; 85027

== ENCOUNTER 2023-01-01 11:05 | Outpatient (RCR) | payer SELFPAY ==
[2022-12-06 00:08] VITALS: BP 119/63; PULSE 63
[2022-12-09 11:53] VITALS: BP 120/64; PULSE 64
[2022-12-11 11:12] VITALS: BP 123/63; PULSE 65
[2022-12-16 11:02] VITALS: BP 126/65; PULSE 73
[2022-12-23 13:37] VITALS: BP 122/62; PULSE 61
[2022-12-25 11:36] VITALS: BP 118/63; PULSE 61
[2022-12-30 10:55] VITALS: BP 105/56; PULSE 79
[2022-12-30 11:44] VITALS: BP 120/64; PULSE 53
[2023-01-01 11:15] VITALS: BP 143/67; PULSE 63
== END 2023-01-05 23:59 | disposition home or self-care (01) ==
LOC: CR 11:05
PROVIDERS: PCP Family Medicine; Visit Provider Internal Medicine Cardiovascular Disease
DX: R69 Illness, unspecified (principal)

== ENCOUNTER 2023-01-12 08:15 | Day surgery (SDC) | payer MEDICARE, SELFPAY ==
[2022-12-18 11:10] VITALS: BP 136/53; PULSE 72
[2023-01-12] VITALS (13 sets, daily range): BP systolic 64–140; BP diastolic 31–87; PULSE 60–68; RESP 14–19; TEMP 35.9–36.6; O2SAT 91–99; BMI 38.0
[2023-01-12] MEDS: Celecoxib 200 MG CAP 400 MG PO (09:26)
[2023-01-12] MEDS: Acetaminophen 500 MG TAB 1000 MG PO (09:26)
[2023-01-12] MEDS: Lactated Ringers 1,000 ML 80 ML IV (09:54)
--- NOTE | 2023-01-12 10:07 | W.ANESPRE ---
General Info Date of Service Date Performed: 01/12/23 Height: 5 ft 3 in Weight: 97.5 kg Body Mass Index (BMI): 38.0 Surgical Procedure: Operation Date: 01/12/23 11:50 Proposed Procedure Side Surgeon p Hip Total Hip Anterior, Corail Right Freddie Khan MD Meds Allergies and Home Medications Allergies Allergy/AdvReac Type Severity Reaction Status Date / Time Sulfa (Sulfonamide AdvReac Intermediate speeds up Verified 01/12/23 09:45 Antibiotics) heartrate Home Medication Medication Instructions Recorded lisinopril 20 mg tablet 20 mg PO DAILY 01/20/16 turmeric root extract 500 mg 500 mg PO DAILY 09/26/18 capsule albuterol sulfate 90 mcg/actuation 2 puff inhalation Q6H PRN 04/10/21 aerosol inhaler fluticasone propionate 50 1 spray intranasal DAILY 04/10/21 mcg/actuation nasal spray,suspension acetaminophen 500 mg tablet 1,000 mg PO PRN PRN 05/27/21 (Tylenol Extra Strength) aspirin 81 mg tablet,delayed 81 mg PO DAILY 10/30/21 release (Adult Aspirin Regimen) potassium chloride 10 mEq 10 meq PO DAILY 11/21/21 capsule,extended release rosuvastatin 5 mg tablet 5 mg PO HS 11/21/21 empagliflozin 10 mg tablet 10 mg PO DAILY 02/09/22 (Jardiance) clobetasol 0.05 % topical cream 1 applic topical BID 04/17/22 cholecalciferol (vitamin D3) 50 50 mcg PO DAILY 04/20/22 mcg (2,000 unit) capsule (Vitamin D3) furosemide 20 mg tablet (Lasix) 20 mg PO DAILY 11/11/22 metoprolol succinate 50 mg 50 mg PO HS 11/26/22 tablet,extended release 24 hr (Toprol XL) acetaminophen 500 mg tablet 1,000 mg (2 x 500 mg) PO Q8H PRN 01/12/23 pain #90 tabs aspirin 81 mg tablet,delayed 81 mg PO BID #60 tabs 01/12/23 release celecoxib 200 mg capsule 200 mg PO BID PRN pain #60 caps 01/12/23 dexamethasone 4 mg tablet 4 mg PO DAILY #2 tabs 01/12/23 oxycodone 5 mg tablet 5 mg PO Q6H PRN pain #12 tabs 01/12/23 pantoprazole 40 mg tablet,delayed 40 mg PO DAILY #30 tabs 01/12/23 release Current Visit Medications: Current Medications Generic Name Dose Route Start Last Admin Trade Name Jerry PRN Reason Stop Dose Admin Acetaminophen 1,000 mg 01/12/23 06:00 01/12/23 09:26 Acetaminophen 500 Mg Tab PO 01/12/23 16:00 1,000 mg PREOP SANDRA Administration Acetaminophen 1,000 mg 01/12/23 07:38 Acetaminophen 500 Mg Tab PO 02/11/23 07:37 TID PRN PRN Pain Celecoxib 400 mg 01/12/23 06:00 01/12/23 09:26 Celecoxib 200 Mg Cap PO 01/12/23 16:00 400 mg PREOP SANDRA Administration Hydromorphone HCl 0.5 mg 01/12/23 07:40 Hydromorphone 2 Mg/Ml Syr IVP 02/11/23 07:39 Q2H PRN PRN Ringer's Solution 1,000 mls @ 80 mls/hr 01/12/23 06:00 01/12/23 09:54 IV 02/10/23 23:59 80 mls/hr INFUSION SANDRA Administration Cefazolin Sodium/Dextrose 2 gm in 50 mls @ 100 mls/hr 01/12/23 06:00 Ancef Duplex IVPB 02/10/23 23:59 PREOP SANDRA Tranexamic Acid 1,000 mg/ 60 mls @ 360 mls/hr 01/12/23 06:00 Sodium Chloride IV 01/12/23 16:00 PREOP SANDRA Cefazolin Sodium/Dextrose 1 gm in 50 mls @ 100 mls/hr 01/12/23 14:00 Ancef Duplex IVPB 01/13/23 06:29 Q8H SADNRA IV Miscellaneous Supplies 1 each 01/12/23 06:00 Iv Access IV 02/10/23 23:59 DIRECTED SANDRA Oxycodone HCl 0 mg 01/12/23 07:40 Oxycodone 5 Mg Tab PO 02/11/23 07:39 Q3H PRN PRN Pain Sodium Chloride 0 ml 01/12/23 06:00 Normal Saline Flush 10 Ml Syr IV 02/10/23 23:59 PRN PRN Sodium Chloride 0 ml 01/12/23 06:00 Normal Saline 10 Ml Vial IJ 02/10/23 23:59 DIRECTED PRN Sterile Water 0 ml 01/12/23 06:00 Water,Injection,Sterile 10 Ml Vial IJ 02/10/23 23:59 DIRECTED PRN PFSH Active Problems Active Problems: Problem Status Onset Code ICD (implantable cardioverter-defibrillator) in place Z95.810 Tubular adenoma ~05/27/21 D36.9 Hypertension I10 Primary osteoarthritis of right hip 04/01/16 M16.11 History of total left hip replacement 01/25/19 Z96.642 Trochanteric bursitis, left hip M70.62 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 Positive colorectal cancer screening using Cologuard test R19.5 LBBB (left bundle branch block) I44.7 Medical History Medical History Asthma Vertigo Skin lesion Headache Anemia Peripheral edema Cardiomyopathy Hx of left bundle branch block Hx of vertigo Surgical History Surgical History History of right breast biopsy History of hip replacement Hx of colonoscopy (~05/27/21) Hx of cone biopsy of cervix Tobacco Smoking/Tobacco Use Status: Never Alcohol Alcohol Intake: current Alcohol intake frequency: holidays/special occasions only Alcohol type: wine Substance Use Substance use: Never Substance use type: does not use Vital Signs and Lab Results Vital Signs Most Recent Vital Signs in EMR: Most Recent Vital Signs Temp Pulse Resp BP Pulse Ox 35.9 C L 67 16 133/65 96 01/12/23 09:02 01/12/23 09:02 01/12/23 09:02 01/12/23 09:02 01/12/23 09:02 Lab Results Blood Type / Crossmatch: No Data to Display Complete Blood Count: White Blood Count 6.53 10^3/uL (4.4-10.8) 12/31/22 15:00 Red Blood Count 4.69 10^6/uL (3.93-5.22) 12/31/22 15:00 Hemoglobin 13.9 g/dL (11.2-15.7) 12/31/22 15:00 Hematocrit 43.9 % (36.0-46.0) 12/31/22 15:00 Platelet Count 217 10^3/uL (130-400) 12/31/22 15:00 Complete Metabolic Panel: Sodium 139 mmol/L (136-145) 12/31/22 15:00 Potassium 4.2 mmol/L (3.5-5.1) 12/31/22 15:00 Chloride 104 mmol/L (98-107) 12/31/22 15:00 Carbon Dioxide 29.1 mmol/L (21.0-32.0) 12/31/22 15:00 BUN 23 mg/dL (7-18) H 12/31/22 15:00 Creatinine 1.3 mg/dL (0.55-1.02) H 12/31/22 15:00 Est GFR (CKD-EPI 2020) 43.15 (mL/min/1.73m2) 12/31/22 15:00 Calcium 9.1 mg/dL (8.5-10.1) 12/31/22 15:00 Glucose 98 mg/dL (74-106) 12/31/22 15:00 Liver Function Panel: No Data to Display Coagulation Panel: No Data to Display Cardiac Panel: No Data to Display Arterial Blood Gas: No Data to Display Venous Blood Gas: No Data to Display Pancreas Panel: No Data to Display Thyroid Panel: No Data to Display Infectious Disease: No Data to Display Blood Cultures: No Data to Display Toxicology Panel: No Data to Display Anesthesia Assessment and Plan Anesthesia History Personal History: No History of Anesthesia Complications Family History: No Family History of Anesthesia Complications Exercise Tolerance Exercise Tolerance: Metabolic Equivalents>4 Pertinent Negatives Pertinent Negatives: No Symptoms of GERD Cardiac & Pulmonary Exam Cardiac Exam: Normal S1/S2 Heart Sounds Pulmonary Exam: Clear Bilateral Breath Sounds Implantable Cardiac Device Does patient have a Pacemaker or an ICD?: Yes 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
[2023-01-12] MEDS: ceFAZolin 2 GM/50 ML BAG IVPB (10:44)
--- NOTE | 2023-01-12 11:55 | DI.RAD_ITS ---
Exam(s) XR HIP RT IN OR EXAM: XR HIP RT IN OR CLINICAL HISTORY: OA RIGHT HIP. TECHNIQUE: 2D digital imaging was performed. COMPARISON: No exams were available for comparison FINDINGS: Fluoroscopy provided during right hip arthroplasty. Please see procedure report for details. Total fluoroscopy time 61 seconds IMPRESSION: Radiation exposure index/cumulative dose: Yasmanir= 9.9256 mGy DATA REPOSITORY: RADIATION DOSE DELIVERED:
--- NOTE | 2023-01-12 12:26 | ROE_ITS ---
Date of service: 01/12/23 Time of Service: 11:00 Operative Note Operative Note DATE OF PROCEDURE: 01/12/23 PRE-OP DIAGNOSIS: Right Hip Arthritis POST-OP DIAGNOSIS: same PROCEDURE: Right Anterior Total Hip Arthroplasty with Intraoperative Navigation SURGEON: Freddie Khan INSPECTOR BALANCE WHEEL MOTION: Iman Ramos ANESTHESIA TYPE: Spinal Refer to Anesthesia Record ESTIMATED BLOOD LOSS: 400 PATHOLOGY: none sent TOURNIQUET TIME: 0 COMPLICATIONS: None Patient was transported to: PACU Patient's condition: stable Implants: 1. Depuy [place] Acetabular Component, 54mm 2. Depuy Acetabular Liner, [id number] 3. Depuy Corail Short Neck Collared Femoral Stem, Size 12 4. Depuy Altrx Ceramic Femoral Head, Size 36+5mm Indications: I have seen Thais in clinic for symptoms of hip arthritis, confirmed with radiographic findings. She has exhausted nonoperative methods and was having significant limitations in daily function and desired better function and less pain. I discussed the technical details of a hip replacement. She had a previous hip replacement on the left side which has done very well. I reviewed the risks of the procedure to include, but not limited to, bleeding, infection, pain, stiffness, fracture, damage to nerves and vessels, damage to muscles and tendons, loosening, instability, leg length inequality, need for repeat procedure, blood clot and cardiopulmonary demise. Despite these risks, she elected to proceed. Findings: There was significant signs of arthritis throughout the hip. Procedure Description: Thais was greeted in the preoperative holding area where the correct side was identified and marked. The consent was reviewed with the patient and signed. The history and physical was updated. All questions were answered. She was taken back to the operating room. A spinal anesthestic was then administered. The feet were wrapped with cast padding and Coban and then placed into the boot liners and then into the boots. Care was taken to protect the skin and make sure the heels were fully down and the boots were stable. The patient was then positioned onto the HANA table. Both legs were held in a neutral position. SCDs were applied. The patient was then slid down onto a peroneal post. Prophylactic antibiotics in the form of Cefazolin were administered. 1g of Tranxemic Acid was given intravenously within 30 minutes of incision. The right leg was then prepped with Chloraprep and draped in a standard fashion. A second prep with Chloraprep was performed prior to placement of a shower-curtain type drape with Iodine impregnated skin protection. A timeout to confirm correct identity, side and site, procedure, allergies, anesthesia, and medical concerns was performed. An obliquely oriented incision was made starting lateral to the ASIS and running distal over the Tensor Fascia Ching (TFL) muscle belly toward the fibular head, approximately 10cm. The skin and soft tissue was dissected sharply, through Sc arpa?s fascia, and to the fascia of the TFL. With the fascia and superior border of the IT band identified, the fascia was incised with a new knife just above any perforators from the IT band. The TFL muscle belly was bluntly dissected away from the fascia and moved laterally. The fat between TFL and rectus was identified to ensure the dissection was not within the TFL. Blunt dissection created space between abductors and the capsule and retractor was placed over the lateral femoral neck. The fibers of the rectus femoris tendon were identified and these were freed from the anterior capsule. A second cobra retractor was placed around the medial femoral neck. The TFL was further retracted laterally to show the deep fascia. Careful dissection through this layer identified three main crossing vessels of the lateral femoral circumflex. These were cauterized in multiple locations and then cut without any noticeable bleeding. The TFL was further released bluntly from the deep fascia to expose anterior hip capsule and fat The Loi orthopaedic retractor was then placed beneath the TFL and against sartorius and medial soft tissues to protect and retract the soft tissues. A T-capsulotomy was then performed starting at the superior lateral acetabulum and moving distally to the intertrochanteric ridge. These capsular flaps were tagged with a No. 1 Ethibond and elevated from within. The capsular flaps were released to the shoulder of the lateral neck and to the lesser trochanter to give excellent visualization of the proximal femur. A neck osteotomy was performed using an oscillating saw based on preoperative templates. This cut started in the shoulder and of the lateral neck and exited medially. The saw was at all times directed medially to avoid injury to the g reater trochanter. Gross traction was applied to the leg and the osteotomy opened. The femoral head was removed with a corkscrew, making sure to protect the TFL on its exit. Traction was released after head removal. This was measured on the back table to determine the starting reamer size. Portions of the rectus obscuring visualization were minimally elevated off the superior acetabulum. An anterior retractor was placed over the anterior wall between capsule and labrum and attached to the Gripper retraction system. The femur was rotated to 90 degrees and medial capsule was fully released until the lesser trochanter was palpable and visible; the femur was returned to 30 degrees. A posterior retractor was placed similarly between capsule and labrum. This provided excellent visualization. The contents of the cotyloid fossa were removed with electrocautery and the labrum was removed with a knife. There was a notable floor osteophyte. There was significant chondromalacia of the superior acetabulum. Acetabular reaming began with a 46mm reamer. This first reaming was directed anterior to posterior and medial to get down to the true floor. This was inspected and reamed until the true floor was reached. The anterior retractor was then released and entry and exit was provided by traction on the capsular flaps. I then reamed sequentially up to a 52mm reamer where good fit was obtained. The larger reamers were oriented based on anatomical reference of the anterior and lateral reed to ensure proper abduction and anteversion. Positioning and size was confirmed with the fluoroscopy. A 52mm Depuy [place] acetabular component was selected. The acetabulum was reamed around the periphery with the selected acetabular size to prevent a rim fit. The deep tissues were irrigated. The acetabular component was then impacted in a position of about 40-45 degrees of abduction and 15-20 degrees of anteversion, using the patient?s anatomy as the ultimate landmark. However, I was unable to get any significant production supervisor trainee of the acetabular component into the acetabulum. The component was seeding all the way down to the floor without purchase. There was some room for medialization but given the complete lack of contact I thought it was best to upsize the acetabular component. Therefore, I reranged from a 50 mm to 53 mm. I trialed with a 54 mm reamer which had excellent purchase into the acetabulum and good contact amongst all reed without eradication of the posterior anterior reed. Therefore, I open the 54 mm DePuy [place] acetabular component. This was inse rted and impacted to position of about 40 degrees of abduction and 15 to 20 degrees of anteversion. Fluoroscopy was used to confirm this. There was excellent production supervisor trainee of the acetabular component and the inserting handle was removed. A primary acetabular screw was placed into the ilium by drilling through one of the holes in the acetabular component. This was measured and an approrpriately sized screw was placed with excellent purchase. It was checked not to be proud. The acetabular liner, Depuy [id number] polyethylene liner, was inserted and lined up with the tines of the acetabular component. There was no soft tissue interposition. The liner was then impacted into position and confirmed to be well-seated. A portion of the desiree-articular cocktail was then injected around the acetabulum into the capsule and periosteum. This cocktail consisted of 123mg of Ropivacaine, 0.25mg of Epinephrine, 0.04mg of Clonidine, and 15mg of Ketorolac, diluted to 50cc. The leg was rotated to 120 degrees. Any remaining medial capsule was released until the lesser trochanter was easily palpable. A retractor was placed medially. The lateral capsule was further released into the shoulder to allow access to the greater trochanter. A Ramos retractor was placed over the greater trochanter which allowed the trochanter to flip in front of the capsule for excellent exposure. The leg was brought down into maximal extension and 20 degrees of adduction while ensuring there was no impingement on the acetabulum. Any remnant capsule within the trochanter was released. Piriformis and obturator externis were identified and protected. There was excellent access to the proximal femur. The lateral neck remnant was removed with a rongeur. A blunt canal probe was used to identify the canal and trajectory for later broaching. A box osteotome initiated the broach course. A small curved rasp and a curved curette were used to work laterally. Broaching then began with a size 8 Corail broach. This was inserted manually around the trochanter and into the canal before mallet blows. The broach was seated to a few millimeters below the cut level based on the neck cut and the preoperative template. Sequential broaching was continued with the [employer] pneumatic broaching device until a tight fit was obtained with good rotational control of the femur. A trial short neck was inserted along with a +5 trial head. The leg was brought out of extension and adduction and then reduced with traction and internal rotation. The leg was stable anteriorly in a position of 30 degrees of extension and 90 degrees of external rotation. Fluoroscopy was used to ensure there was no fracture and the stem was seated well. Leg lengths were checked with an AP pelvis and pelvic reference points. [employer] navigation system was used to confirm appropriate positioning and leg length and offset. Once content with the desired offset and leg lengths, the leg was brought back into extension, external rotation and adduction. The periosteum and surrounding tissue was injected with remaining portion of the desiree-articular cocktail. The proximal femur was irrigated as well as the deep tissues. The Depuy Corail short neck collared stem, size 12, was then manually inserted into the proximal femur making sure to control rotation. It was then malleted into position with light blows, giving breaks to allow bone expansion and decrease risk of fracture. The selected Depuy Altrx Ceramic Head, size 36+5mm, was then placed onto the clean and dry trunnion and secured with impaction onto the tapered fit. The leg was brought back out of extension and adduction and reduced with traction and internal rotation. Stability was confirmed with no shuck at 90 degrees of external rotation and 30 degrees of extension. No impingement through range of motion arc. Final x-ray images were obtained with fluoroscopy to confirm adequate positioning and no intraoperative fracture. The deep tissues were thoroughly irrigated with Surgiphor, betadine solution. This was allowed to sit in the wound for 3 minutes before being thoroughly irrigated out with normal saline. The capsule was then reapproximated with the previously placed Ethibond sutures. The TFL fascia was finally closed with a No. 2 Stratafix, barbed suture. Deep tissues were then reapproximated with 0 Vicryl and a running 2-0 Vicryl. The skin was closed with a running 4-0 Monocryl in a subcuticular fashion. This was reinforced with skin glue. A Mepilex silver dressing was applied. At the end of the case, all counts were correct. Thais was transferred to the hospital bed without difficulty and suffering no apparent complication. Thais has a good prognosis. Physical therapy will start today and without restrictions, weight-bearing as tolerated. Aspirin 81mg BID will be used for DVT prophylaxis.
[2023-01-12] MEDS: fentaNYL 100 MCG/2 ML VIAL IVP (12:57)
[2023-01-12] MEDS: oxyCODONE 5 MG TAB PO ×2 (13:42→15:43)
--- NOTE | 2023-01-12 13:49 | W.ANESPOSTOP ---
Postoperative Evaluation Date, Time and Location Date Performed: 01/12/23 Time Performed: 13:49 Patient Location: Day Surgery Unit Vital Signs Most Recent Imported Vital Signs: Most Recent Vital Signs Temp Pulse Resp BP Pulse Ox 36.2 C L 60 18 134/52 L 97 01/12/23 13:19 01/12/23 13:19 01/12/23 13:19 01/12/23 13:19 01/12/23 13:19 Pain Score Most Recent Pain Score: Most Recent Pain Score Pain Level 5 01/12/23 13:19 Assessment Mental Status: Awake (Alert & Oriented to Patient Baseline) Airway and Respiratory Function: Patent airway with normal (patient baseline) respiratory exam Cardiovascular Function: Hemodynamically Stable Hydration Status: Adequately Hydrated Nausea & Vomiting: No Nausea or Vomiting Pain: Pain is tolerable per patient Peripheral Nerve Block: Patient did not receive a nerve block
--- NOTE | 2023-01-12 13:52 | W.PM.DSUDISC ---
Date of service: 01/12/23 Time of Service: 13:52 Discharge Plan Disposition Patient Disposition: Home Condition: Good Discharge Details Reason For Visit: Right Hip DJD Attending Provider: Freddie Khan Primary Care Provider: Lolly Oliveira V Home Meds and New Rx's Prescriptions: New aspirin 81 mg tablet,delayed release (DR/EC) 81 mg PO BID Qty: 60 0RF acetaminophen 500 mg tablet 1,000 mg PO Q8H PRN (Reason: pain) Qty: 90 3RF celecoxib 200 mg capsule 200 mg PO BID PRN (Reason: pain) Qty: 60 1RF pantoprazole 40 mg tablet,delayed release (DR/EC) 40 mg PO DAILY Qty: 30 0RF dexamethasone 4 mg tablet 4 mg PO DAILY Qty: 2 0RF Rx Instructions: Starting Post-Operative Day #1 (Day after surgery) oxycodone 5 mg tablet 5 mg PO Q6H PRN (Reason: pain) Qty: 12 0RF Continued aspirin [Adult Aspirin Regimen] 81 mg tablet,delayed release (DR/EC) 81 mg PO DAILY turmeric root extract 500 mg capsule 500 mg PO DAILY lisinopril 20 MG tablet 20 mg PO DAILY albuterol sulfate 90 mcg/actuation Hfa Aerosol Inhaler 2 puff INHALATION Q6H PRN fluticasone propionate 50 mcg/actuation Adams,Suspension 1 spray INTRANASAL DAILY potassium chloride 10 mEq capsule, extended release 10 meq PO DAILY rosuvastatin 5 mg tablet 5 mg PO HS furosemide [Lasix] 20 mg tablet 20 mg PO DAILY clobetasol 0.05 % Cream 1 applic TOPICAL BID acetaminophen [Tylenol Extra Strength] 500 mg Tablet 1,000 mg PO PRN PRN Jardiance 10 mg tablet 10 mg PO DAILY Patient Comments: TAKE 1 TABLET BY MOUTH ONCE DAILY FOR HF cholecalciferol (vitamin D3) [Vitamin D3] 50 mcg (2,000 unit) Capsule 50 mcg PO DAILY Held metoprolol succinate [Toprol XL] 50 mg tablet extended release 24 hr 50 mg PO HS Hold Instructions: Resume on 01/14/23. Patient Comments: 11/26/[address] Mcmahon at OV 11/10/22 due to continued depressed EF, He ordered through [facility] chart, RH Discharge Instructions Additional Instructions: Total Hip Discharge Instructions Activity: The most important activity is to walk. You should try to take short walks a few times a day. You have no restrictions on movement or positioning, but do not try to force what you do. You will find some stiffness and weakness with hip flexion (lifting your knee). Do not try to strengthen this too early, continue to practice walking and stairs and this will come. - Outpatient physical therapy can be helpful to help return you to a normal gait and improve your flexibility and strength. This can start around 2 weeks. For some patients, it?s not necessary. Usually this is determined at the time of discharge or at the first post-operative visit. - You should wear the LOUANN hose on both legs for 2 weeks. Dressing: Keep the surgical dressing in place for at least one week. After the first week it may be removed and replace with light gauze and tape or nothing. It may get wet after 3 days but avoid soaking the dressing. If it gets wet, just lightly pat dry. It is important to always keep some gauze between skin folds, especially when you are sitting. Spend some time with the wound exposed when you are lying flat as the incision does wrinkle onto itself. Medications: - You should take Tylenol and an anti-inflammatory Celebrex as your primary pain control medications. If the Celebrex is too expensive or not covered, please call the office for another alternative (Advil/Ibuprofen or Naproxen/Aleve). - You have been prescribed a stronger pain medication Oxycodone for breakthrough pain, take as needed as prescribed. - You have also been prescribed a stomach acid reduction agent Pantoprozole to help reduce stomach acid and reflux. - You have also been prescribed Decadron to help with post-operative nausea and pain. You will take this for two days starting tomorrow. - You will be taking Aspirin 81mg twice a day for DVT prevention unless instructed otherwise. - If you have constipation you should take Colace or Miralax (both [id number]). It takes most people 3-4 days to have a bowel movement. - I also recommend you hold your Metoprolol for 2 days to allow adjustment after the surgery. Continue to stay well hydrated. Follow-up: 2 weeks If you have any acute concerns or questions, please do not hesitate to contact the office at [phone]. You may contact Dr. Khan with any questions after hours through the hospital at [phone] or on his cell phone at [phone]. Stand Alone Forms: Anesthesia Discharge Inst., Giuseppe Hylton (DSU) Referrals: Freddie Khan MD [ [facility] STAFF PHYSICIAN] - 01/25/23 1:00 pm Equipment/Supplies: Walker Activity:: Activity as Tolerated Shower/Bathe:: Cover Diet:: As Tolerated Discharge Orders Discharge Orders: Discharge Order (Routine); Ordered 01/12/23 Ordered By: Freddie Khan
--- NOTE | 2023-01-12 15:11 | IN_ITS ---
Date of service: 01/12/23 Time of Service: 15:11 PT Notes Visit Reasons: Right Hip DJD Physical Therapy Inpatient Initial Evaluation Date: 01/12/2023 Referring Doctor: Freddie Khan MD PT Orders: PT CONSULT: S/P Ortho Surgery. S/P R ARIEL Precautions: Fall. Standard. WBAT on R LE. 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 PMHX: Medical History (Updated 07/27/22 @ 09:31 by Lisa Schwarz RN) Asthma Vertigo Skin lesion Headache Anemia Peripheral edema Cardiomyopathy Hx of left bundle branch block Hx of vertigo Surgical History (Updated 12/31/22 @ 14:18 by Iman Ramos) History of right breast biopsy History of hip replacement Hx of colonoscopy (~05/27/21) Hx of cone biopsy of cervix Social History/Home Situation: Patient lives alone in a ranch-style home with 2 steps to enter, rail on the L going up. 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 She is independent with all aspects of ADLs prior to surgery. Two daughters and daughters' families have been very good support. Equipment Owned/DME: [employer] Subjective: Complains of burning in the front of her right hip and thigh. Reports pain at 5-6/10 early in the walk and agreed to have another Oxycodone to manage pain. Resting pain was 3/10 in the R hip. Denies headache, chest pain, and lightheadedness throughout session. Objective: General Observation: Patient seen resting in bed. Daughter Taylor present during surgery. Mepilex Ag over surgical incision. Mental Status: Alert and oriented x 4 Pain: As above Vital Signs: Diastolic BP normalized when PT came in for evaluation ROM: Right Lower Extremity: Hip flexion lacks the last 50% of AROM due to pain. Hip abduction lacks the last 50% of AROM due to pain. Knee flexion WFL. Ankle dorsiflexion WFL. Ankle plantarflexion WFL. Left Lower Extremity: Hip flexion WFL. Hip abduction WFL. Knee flexion WFL. Ankle dorsiflexion WFL. Ankle plantarflexion WFL. Strength: Right Lower Extremity: Hip flexors 3-/5. Hip abductors 3-/5. Knee flexors 3-/5. Knee extensors 4-/5. Ankle dorsiflexors 4-/5. Ankle plantarflexors 4-/5. Left Lower Extremity:Hip flexors 4/5. Hip abductors 4/5. Knee flexors 4/5. Knee extensors 4/5. Ankle dorsiflexors 5/5. Ankle plantarflexors 5/5. Bed Mobility/Transfers: Supine to sit stand by assist with HOB at 20 degrees, cues provided to use B UE for support and to rise slow enough to minimize symptoms from low diastolic BP Sit to stand stand by assist with cues provided to use B UE for support, reported pain at 4-5/10 in the R hip Stand to sit stand by assist with cues provided to use B UE for support, reported pain at 4-5/10 in the R hip Gait: R LE in good alignment. No report of instability in R hip/knee. Karin decreased. Step height on R decreased. Reported increasing pain level to 6/10 after covering a distance of about 15 feet using FWW. Nurse Demetria gave patient another dose of Oxycodone. After resting for about 5 minutes, patient was able to cover 20 feet in the hallway before needing to sit down again with complaint of pain increase to 6/10. R step height decreased due to pain in the R hip. Stairs: Guided patient with safe and correct negotiation of 3 x 4-inch steps and 2 x 6- inch steps while holding onto B rails with step-to gait pattern with minimal cues given for movement sequence and limb advancement. Contact guard assist given for support during descent. No further report of increased pain after activity and until she walked back to room. Balance: Static Sitting: Normal Dynamic Sitting: Normal Static Standing: Fair Dynamic Standing: Fair Special Tests: Mobility Limitations Standardized Measure [facility] AM-PAC 6 clicks Basic Mobility Inpatient Short Form: Raw Score: 18 CMS Score: 47 % deficit Informed Consent/Education: Patient instructed in purpose of PT consult and plan of care. Trained patient and daughter with correct performance of exercises below to maximize motor control, joint flexibility, soft tissue extensibility of the R hip musculature to facilitate return to independent functional mobility performance. Access Code: [email or web address] URL: [email or web address] Date: 01/12/2023 Prepared by: Sana Lamb Exercises - Gluteal Sets - 1 x daily - 7 x weekly - 1 sets - 10 reps - 5 hold - Supine Heel Slide - 1 x daily - 7 x weekly - 1 sets - 10 reps - 5 hold - Supine Ankle Pumps - 1 x daily - 7 x weekly - 1 sets - 10 reps - 5 hold - Seated March - 1 x daily - 7 x weekly - 1 sets - 10 reps - 5 hold - Seated Long Arc Quad - 1 x daily - 7 x weekly - 1 sets - 10 reps - 5 hold ASSESSMENT: Patient requires use of a front-wheeled walker for all mobility ADL performance to maximize independence and reduce fall risk. Pain level limited mobility performance for today's session and patient will need to stay ahead of pain in order to maximize independent performance of transfers and ambulation using FWW at home. Patient presents with clinical signs and symptoms consistent with current/admitting diagnoses that have resulted to mobility limitations, gait instability, generalized weakness, and impairment of motor control as demonstrated by the following impairment level findings: 1. Decreased strength to R hip major muscle groups 2. Impaired standing balance 3. Impaired activity tolerance 4. Limitation of joint range of motion in R hip Impairments are contributing to the following functional limitations: 1. Inability to safely ambulate without assistive device 2. Increase completion time for mobility ADL performance 3. Increased fall risk 4. Inability to negotiate steps alone safely Patient is assessed as a 24729 moderate complexity based on the following: History: Patient is a 72-year-old female status post R anterior total hip arthroplasty due DJD of R hip on POD 0. Examination: Demonstrable impairment in strength, balance, and range of motion with underlying impairments and functional limitations as documented above Presentation: Evolving Decision Makin moderate complexity Goals: N/A. PT evaluation 1-2 treatment session only for functional mobility training and HEP instruction. Plan of Care/Treatment Plan: N/A. PT evaluation 1-2 treatment session only for functional mobility training and HEP instruction. DISCHARGE RECOMMENDATIONS: Home when medically cleared by orthopedic surgeon. Recommend outpatient PT services in order to optimize functional mobility outcomes and facilitate return to independent community ambulation without an assistive device. TREATMENT CODE/TIME: 91925 x 25 minutes, 41156 x 38 minutes beginning at 15:11 PM. Thank you for the opportunity to participate in the care of this patient. Sana Lamb PT, DPT, CLT [facility] [place], [place]
== END 2023-01-12 16:36 | disposition home or self-care (01) ==
LOC: SUR 08:16
PROVIDERS: PCP Family Medicine; Visit Provider Student in an Organized Health Care Education/Training Program
PROC: (CPT 27130; principal; 2023-01-12 11:30)
DX: M16.11 Unilateral primary osteoarthritis, right hip (principal); I10 Essential (primary) hypertension; Z96.642 Presence of left artificial hip joint; I44.7 Left bundle-branch block, unspecified
CPT/HCPCS: 20985; 27130; C1776; 97162; 97530; 73501; J0690; J1100; J2001; J2405; J2704; J3010

== ENCOUNTER 2023-01-25 14:06 | Outpatient (CLI) | payer MEDICARE, SELFPAY ==
--- NOTE | 2023-01-25 13:00 | DI.RAD_ITS ---
Exam(s) XR HIP RT COMPLETE AP PELVIS EXAM: XR HIP RT COMPLETE AP PELVIS CLINICAL HISTORY: 1ST POST OP R ARIEL. TECHNIQUE: 2D digital imaging was performed. Two views COMPARISON: CR XR HIP RT COMPLETE AP PELVIS from 08/18/2021 CR XR DEXA BONE DENSITY W/WO LUDWIG from 04/16/2022 XA XR HIP RT IN OR from 01/12/2023 FINDINGS: BONES: No acute fracture is present. No bony destructive lesion is seen. JOINTS: No dislocation present. Bilateral hip prostheses, unchanged.. SOFT TISSUE: Normal. IMPRESSION: Stable appearance of bilateral hip prostheses. DATA REPOSITORY: RADIATION DOSE DELIVERED:
== END 2023-01-25 14:07 | disposition home or self-care (01) ==
LOC: DIORS 14:06
PROVIDERS: PCP Family Medicine; Referring Provider Family Medicine; Visit Provider Student in an Organized Health Care Education/Training Program
DX: Z96.641 Presence of right artificial hip joint (principal); Z47.1 Aftercare following joint replacement surgery
CPT/HCPCS: 73502

== ENCOUNTER → 2023-02-11 12:44 | Outpatient (BNVA) | payer MEDICARE, SELFPAY | PROVIDERS: PCP Family Medicine; Referring Provider Family Medicine; Visit Provider Student in an Organized Health Care Education/Training Program | DX: Z47.1 Aftercare following joint replacement surgery (principal); T81.31XA Disruption of external operation (surgical) wound, not elsewhere classified, initial encounter; Z96.641 Presence of right artificial hip joint ==

== ENCOUNTER → 2023-02-22 13:41 | Outpatient (BNVA) | payer MEDICARE, SELFPAY | PROVIDERS: PCP Family Medicine; Referring Provider Family Medicine; Visit Provider Student in an Organized Health Care Education/Training Program | DX: Z47.1 Aftercare following joint replacement surgery (principal); T81.31XD Disruption of external operation (surgical) wound, not elsewhere classified, subsequent encounter; Z96.641 Presence of right artificial hip joint ==

== ENCOUNTER 2023-03-05 11:04 | Outpatient (RCR) | payer SELFPAY ==
[2022-09-05 00:06] VITALS: BP 124/61; PULSE 72
[2023-02-10 15:09] VITALS: BP 139/70; PULSE 74
[2023-02-12 11:08] VITALS: BP 149/76; PULSE 75
[2023-02-17 11:02] VITALS: BP 147/68; PULSE 67
[2023-02-19 11:19] VITALS: BP 135/63; PULSE 74
[2023-02-24 15:27] VITALS: BP 138/61; PULSE 74
[2023-03-03 14:13] VITALS: BP 150/64; PULSE 74
[2023-03-05 11:21] VITALS: BP 142/66; PULSE 73
== END 2023-03-07 23:59 | disposition home or self-care (01) ==
LOC: CR 11:04
PROVIDERS: PCP Family Medicine; Visit Provider Internal Medicine Cardiovascular Disease
DX: R69 Illness, unspecified (principal)

== ENCOUNTER → 2023-03-29 08:25 | Outpatient (BNVA) | payer MEDICARE, SELFPAY | PROVIDERS: PCP Family Medicine; Visit Provider Student in an Organized Health Care Education/Training Program | DX: Z47.1 Aftercare following joint replacement surgery (principal); T81.31XD Disruption of external operation (surgical) wound, not elsewhere classified, subsequent encounter; Z96.641 Presence of right artificial hip joint ==

== ENCOUNTER 2023-04-07 11:00 | Outpatient (RCR) | payer SELFPAY ==
[2023-03-08 00:01] VITALS: BP 124/61; PULSE 72
[2023-03-10 11:51] VITALS: BP 139/57; PULSE 72
[2023-03-12 14:47] VITALS: BP 142/60; PULSE 72
[2023-03-17 13:22] VITALS: BP 145/65; PULSE 70
[2023-03-19 10:41] VITALS: BP 125/61; PULSE 62
[2023-03-24 11:09] VITALS: BP 133/67; PULSE 63
[2023-03-26 13:39] VITALS: BP 143/62; PULSE 65
[2023-03-31 11:09] VITALS: BP 144/69; PULSE 72
[2023-04-02 11:04] VITALS: BP 113/60; PULSE 80
[2023-04-07 13:21] VITALS: BP 131/74; PULSE 70
== END 2023-04-07 23:59 | disposition home or self-care (01) ==
LOC: CR 11:00
PROVIDERS: PCP Family Medicine; Visit Provider Internal Medicine Interventional Cardiology
DX: R69 Illness, unspecified (principal)

== ENCOUNTER 2023-04-30 11:31 | Outpatient (RCR) | payer SELFPAY ==
[2023-04-08 00:16] VITALS: BP 124/61; PULSE 72
[2023-04-30 12:51] VITALS: BP 132/63; PULSE 71
== END 2023-05-06 23:59 | disposition home or self-care (01) ==
LOC: CR 11:31
PROVIDERS: PCP Family Medicine; Visit Provider Internal Medicine Cardiovascular Disease
DX: I51.7 Cardiomegaly (principal); Z51.89 Encounter for other specified aftercare

== ENCOUNTER → 2023-05-03 02:55 | Outpatient (CLI) | payer MEDICARE, SELFPAY ==
[2023-04-09 11:06] VITALS: BP 133/71; PULSE 73
[2023-04-14 11:53] VITALS: BP 133/69; PULSE 75
[2023-04-28 11:04] VITALS: BP 136/60; PULSE 76; O2SAT 96
--- NOTE | 2023-05-03 08:30 | DI.US_ITS ---
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 Ejection fraction by biplane is 45%, but visually appe ars 55% with normal overall wall motion Normal right ventricular size and systolic function Device lead noted in the right heart Both atria are normal in size Mild mitral annularcalcification Estimated right ventricular systolic pressure is 24 mmHg Wall motion Left Ventricle The left ventricle is normal size. The left ventricular systolic function is normal. The left ventric ular ejection fraction is within the normal range. Mild concentric left ventricular hypertrophy. Ther e is normal LV segmental wall motion. There is no ventricular septal defect visualized. LVEF is 45% b y biplane Visually appears 55% Right Ventricle The right ventricle is normal size. Right ventricular systolic function is grossly normal. Device teresa d is present in the right ventricle. Atria The left atrium size is normal. The right atrium size is normal. The interatrial septum is intact wit h no evidence for an atrial septal defect. Aortic Valve The aortic valve is normal in structure. Aortic valve is trileaflet. There is no aortic valvular sten osis. No aortic regurgitation is present. Mitral Valve Mild mitral annular calcification. No evidence of mitral valve stenosis. Trace mitral regurgitation. Tricuspid Valve The tricuspid valve is normal in structure. There is no tricuspid valve stenosis. Mild tricuspid regu rgitation. The RVSP is 23.7 mmHg. Pulmonic Valve The pulmonary valve is normal in structure. There is no pulmonic valvular stenosis. There is no pulmo edwina valvular regurgitation. Great Vessels The aortic root is normal in size. The ascending aorta is mildly dilated. Aortic arch is not well vis ualized. IVC is normal in size and collapses >50% with inspiration. Pericardium There is no pericardial effusion. 2D Dimensions IVSD d PLAX 1.20 cm F: 0.6-1.0 Ao Root d 2.98 cm F: 2.7 - 3.3 LVPW d PLAX 1.16 cm F: 0.6 - 1.0 Ao Asc Diam d 3.48 cm F: 2.3 - 3.1 LVID d PLAX 4.01 cm F: 3.8 - 5.2 LVDs 3.13 cm F: 2.2 - 3.5 LV EF Teichholz 44.9 % FS 21.98 % LV EDV (Teich) 70.4 mL LV ESV (Teich) 38.8 mL Stroke Vol Index (Teich) 15.90 M-Mode TAPSE 0.62 cm (M/F) >1.7 Auto EF LV EDV A4C 79.3 mL LV EDV A2C 84.3 mL LV EDV BP 80.3 mL LV ESV A4C 47.9 mL LV ESV A2C 47.2 mL LV ESV BP 46.9 mL LVEF(%) A4C 39.6 % LVEF(%) A2C 44.0 % LVEF(%) BP 41.5 % LV SV A4C 31.4 ml LV SV A2C 37.1 ml LV SV BP 33.3 ml LV CO A4C 2.8 L/min LV CO A2C 3.2 L/min LV CO BP 3.0 L/min HR A4C 88.45 BPM HR A2C 86.33 BPM LV EDV Index (BP) LA Volume LA Length A4C 3.7 cm LA Length A2C 3.9 cm LA Area A4C s 9.87 cm2 LA Area A2C s 8.82 cm2 LA Vol A4C A-L 22.17 mL LA Vol A2C A-L 16.76 mL LA Vol Biplane A-L 19.8 mL LA Vol/BSA A4C A-L LA Vol/BSA A2C A-L LA Vol/BSA BP A-L 10.0 mL/m2 LA Vol A4C MOD 21.2 mL LA Vol A2C MOD 14.9 mL LA Vol BP MOD 18.1 mL RA Volume RA Area A4C 8.0 cm2 RA ESV A4C (A-L) 14.8mL RA Vol/BSA A4C A-L RA Length A4C 3.7 cm RA ESV A4C (MOD) 14.0mL LV Diastology MV E' medial 0.056 (>0.07 m/s) MV E Vmax 0.48 (0.4-1.3 m/s) MV E/E' MED 8.63 (<14) MV A Vmax 1.00 (0.4-1.3 m/s) MV E' lateral 0.043 (>0.1 m/s) E/A Ratio 0.5 MV E/E' LAT 11.32 (<14) MV E' Average 0.050 m/s MV E/E'(average) 9.79 Aortic Valve AoV Vmax 1.37 m/s LVOT Vmax 0.86 m/s AoV Peak Grad 7.6 mmHg LVOT Peak Grad 3.0 mmHg AoV Area (Vmax) 1.94 cm2 LVOT VTI 0.137 m AoV VTI 0.251 m LVOT Mean Grad 1.6 mmHg AoV Mean Erick. 0.96 m/s LVOT SV 42.35 mL AoV Mean Grad 4.2 mmHg LVOT Diam s 1.95 cm AoV Area (VTI) 1.68 cm2 Velocity Ratio 0.63 Mitral Valve MV DT 156 (160-240 msec) Pulmonary Valve PV Vmax 0.74 (0.5-1.5 m/s) RVOT Vmax 0.57 m/s PV Peak Grad 2.2 mmHg RVOT Peak Gr. 1.3 mmHg PV Mean Erick 0.48 m/s RVOT VTI 0.113 m PV Mean Grad 1.1 mmHg RVOT Mean Gr. 0.7 mmHg Tricuspid Valve RA Pressure 3.00 mmHg TR Vmax 2.28 m/s TR Peak Grad 20.7 mmHg RVSP (TR) 23.7 mmHg
== END ==
PROVIDERS: PCP Family Medicine; Visit Provider Internal Medicine Cardiovascular Disease
DX: I42.8 Other cardiomyopathies (principal); Z95.810 Presence of automatic (implantable) cardiac defibrillator
CPT/HCPCS: 93306

== ENCOUNTER 2023-05-12 08:26 | Outpatient (CLI) | payer MEDICARE, SELFPAY ==
--- NOTE | 2023-05-12 08:15 | RT.EKG_ITS ---
APPROVED REPORT Exam: Resting ECG Reason for Exam: LBBB, CMP Patient Location: O HR:73 bpm ECG Measurements Heart Rate 73 AXIS MI 27 P 111 QRSd 115 QRS 80 QT 433 T 73 QTc 478 Conclusion Atrial-sensed ventricular-paced complexes...other complexes also detected No further analysis attempted due to paced rhythm
== END 2023-05-12 08:27 | disposition home or self-care (01) ==
LOC: DI.CARD 08:27
PROVIDERS: PCP Family Medicine; Visit Provider Internal Medicine Cardiovascular Disease
DX: I42.9 Cardiomyopathy, unspecified; I10 Essential (primary) hypertension
CPT/HCPCS: 93010

== ENCOUNTER 2023-05-26 07:19 | Outpatient (CLI) | payer MEDICARE, SELFPAY | END 2023-05-26 07:20 | disposition home or self-care (01) | LOC: PUVA 07:19 | PROVIDERS: PCP Family Medicine; Visit Provider Dermatology | DX: L40.9 Psoriasis, unspecified (principal) | CPT/HCPCS: 96900 ==

== ENCOUNTER 2023-05-28 07:14 | Outpatient (CLI) | payer MEDICARE, SELFPAY | END 2023-05-28 07:15 | disposition home or self-care (01) | LOC: PUVA 07:14 | PROVIDERS: PCP Family Medicine; Visit Provider Dermatology | DX: L40.9 Psoriasis, unspecified (principal) | CPT/HCPCS: 96900 ==

== ENCOUNTER 2023-06-01 07:27 | Outpatient (CLI) | payer MEDICARE, SELFPAY | END 2023-06-01 07:28 | disposition home or self-care (01) | LOC: PUVA 07:27 | PROVIDERS: PCP Family Medicine; Visit Provider Dermatology | DX: L40.0 Psoriasis vulgaris (principal) | CPT/HCPCS: 96900 ==

== ENCOUNTER 2023-06-04 07:12 | Outpatient (CLI) | payer MEDICARE, SELFPAY ==
[2023-05-19 15:15] VITALS: BP 115/74; PULSE 74
== END 2023-06-04 07:13 | disposition home or self-care (01) ==
LOC: PUVA 07:12
PROVIDERS: PCP Family Medicine; Visit Provider Dermatology
DX: L40.9 Psoriasis, unspecified (principal)
CPT/HCPCS: 96900

== ENCOUNTER 2023-06-04 10:42 | Outpatient (RCR) | payer SELFPAY ==
[2023-05-07 00:06] VITALS: BP 124/61; PULSE 72
[2023-05-07 11:48] VITALS: BP 127/56; PULSE 67
[2023-05-12 11:29] VITALS: BP 132/64; PULSE 60
[2023-05-14 11:35] VITALS: BP 127/60; PULSE 65
[2023-05-26 15:54] VITALS: BP 122/59; PULSE 79
[2023-05-28 11:49] VITALS: BP 126/61; PULSE 61
[2023-06-04 11:00] VITALS: BP 125/63; PULSE 63
== END 2023-06-06 23:59 | disposition home or self-care (01) ==
LOC: CR 10:42
PROVIDERS: PCP Family Medicine; Visit Provider Internal Medicine Cardiovascular Disease
DX: R69 Illness, unspecified (principal)

== ENCOUNTER 2023-06-08 07:14 | Outpatient (CLI) | payer MEDICARE, SELFPAY | END 2023-06-08 07:15 | disposition home or self-care (01) | LOC: PUVA 07:15 | PROVIDERS: PCP Family Medicine; Visit Provider Dermatology | DX: L40.9 Psoriasis, unspecified (principal) | CPT/HCPCS: 96900 ==

== ENCOUNTER 2023-06-11 07:05 | Outpatient (CLI) | payer MEDICARE, SELFPAY | END 2023-06-11 07:06 | disposition home or self-care (01) | LOC: PUVA 07:05 | PROVIDERS: PCP Family Medicine; Visit Provider Dermatology | DX: L40.9 Psoriasis, unspecified (principal) | CPT/HCPCS: 96900 ==

== ENCOUNTER 2023-06-15 07:13 | Outpatient (CLI) | payer MEDICARE, SELFPAY | END 2023-06-15 07:14 | disposition home or self-care (01) | LOC: PUVA 07:13 | PROVIDERS: PCP Family Medicine; Visit Provider Dermatology | DX: L40.9 Psoriasis, unspecified (principal) | CPT/HCPCS: 96900 ==

== ENCOUNTER 2023-06-18 07:04 | Outpatient (CLI) | payer MEDICARE, SELFPAY | END 2023-06-18 07:05 | disposition home or self-care (01) | LOC: PUVA 07:04 | PROVIDERS: PCP Family Medicine; Visit Provider Dermatology | DX: L40.9 Psoriasis, unspecified (principal) | CPT/HCPCS: 96900 ==

== ENCOUNTER 2023-06-25 07:05 | Outpatient (CLI) | payer MEDICARE, SELFPAY | END 2023-06-25 07:06 | disposition home or self-care (01) | LOC: PUVA 07:06 | PROVIDERS: PCP Family Medicine; Visit Provider Dermatology | DX: L40.9 Psoriasis, unspecified (principal) | CPT/HCPCS: 96900 ==

== ENCOUNTER 2023-06-29 07:15 | Outpatient (CLI) | payer MEDICARE, SELFPAY | END 2023-06-29 07:16 | disposition home or self-care (01) | LOC: PUVA 07:16 | PROVIDERS: PCP Family Medicine; Visit Provider Dermatology | DX: L40.9 Psoriasis, unspecified (principal) | CPT/HCPCS: 96900 ==

== ENCOUNTER 2023-07-02 07:10 | Outpatient (CLI) | payer MEDICARE, SELFPAY | END 2023-07-02 07:11 | disposition home or self-care (01) | LOC: PUVA 07:10 | PROVIDERS: PCP Family Medicine; Visit Provider Dermatology | DX: L40.9 Psoriasis, unspecified (principal) | CPT/HCPCS: 96900 ==

== ENCOUNTER 2023-07-02 11:09 | Outpatient (RCR) | payer SELFPAY ==
[2023-06-11 10:22] VITALS: BP 131/60; PULSE 66
[2023-06-16 11:14] VITALS: BP 131/71; PULSE 71
[2023-06-18 11:23] VITALS: BP 116/54; PULSE 68
[2023-06-23 11:19] VITALS: BP 124/64; PULSE 62
[2023-06-25 12:30] VITALS: BP 126/68; PULSE 60
[2023-07-02 11:00] VITALS: BP 126/61; PULSE 62
== END 2023-07-06 23:59 | disposition home or self-care (01) ==
LOC: CR 11:09
PROVIDERS: PCP Family Medicine; Visit Provider Internal Medicine Cardiovascular Disease
DX: R69 Illness, unspecified (principal)

== ENCOUNTER 2023-07-06 07:01 | Outpatient (CLI) | payer MEDICARE, SELFPAY ==
[2023-06-09 11:24] VITALS: BP 131/63; PULSE 60
== END 2023-07-06 07:02 | disposition home or self-care (01) ==
LOC: PUVA 07:02
PROVIDERS: PCP Family Medicine; Visit Provider Dermatology
DX: L40.9 Psoriasis, unspecified (principal)
CPT/HCPCS: 96900

== ENCOUNTER 2023-07-09 06:58 | Outpatient (CLI) | payer MEDICARE, SELFPAY | END 2023-07-09 06:59 | disposition home or self-care (01) | LOC: PUVA 06:58 | PROVIDERS: PCP Family Medicine; Visit Provider Dermatology | DX: L40.9 Psoriasis, unspecified (principal) | CPT/HCPCS: 96900 ==

== ENCOUNTER 2023-07-13 07:04 | Outpatient (CLI) | payer MEDICARE, SELFPAY | END 2023-07-13 07:05 | disposition home or self-care (01) | LOC: PUVA 07:05 | PROVIDERS: PCP Family Medicine; Visit Provider Dermatology | DX: L40.9 Psoriasis, unspecified (principal) | CPT/HCPCS: 96900 ==

== ENCOUNTER 2023-07-16 07:22 | Outpatient (CLI) | payer MEDICARE, SELFPAY | END 2023-07-16 07:23 | disposition home or self-care (01) | LOC: PUVA 07:23 | PROVIDERS: PCP Family Medicine; Visit Provider Dermatology | DX: L40.9 Psoriasis, unspecified (principal) | CPT/HCPCS: 96900 ==

== ENCOUNTER 2023-07-20 08:42 | Outpatient (CLI) | payer MEDICARE, SELFPAY | END 2023-07-20 08:43 | disposition home or self-care (01) | PROVIDERS: PCP Family Medicine; Visit Provider Dermatology | DX: L40.9 Psoriasis, unspecified (principal) | CPT/HCPCS: 96900 ==

== ENCOUNTER 2023-07-27 06:57 | Outpatient (CLI) | payer MEDICARE, SELFPAY | END 2023-07-27 06:58 | disposition home or self-care (01) | LOC: PUVA 06:58 | PROVIDERS: PCP Family Medicine; Visit Provider Dermatology | DX: L40.9 Psoriasis, unspecified (principal) | CPT/HCPCS: 96900 ==

== ENCOUNTER 2023-07-30 06:56 | Outpatient (CLI) | payer MEDICARE, SELFPAY | END 2023-07-30 06:57 | disposition home or self-care (01) | LOC: PUVA 06:56 | PROVIDERS: PCP Family Medicine; Visit Provider Dermatology | DX: L40.9 Psoriasis, unspecified (principal) | CPT/HCPCS: 96900 ==

== ENCOUNTER 2023-08-06 07:15 | Outpatient (CLI) | payer MEDICARE, SELFPAY | END 2023-08-06 07:16 | disposition home or self-care (01) | LOC: PUVA 07:16 | PROVIDERS: PCP Family Medicine; Visit Provider Dermatology | DX: L40.9 Psoriasis, unspecified (principal) | CPT/HCPCS: 96900 ==

== ENCOUNTER 2023-08-06 11:00 | Outpatient (RCR) | payer SELFPAY ==
[2023-07-07 11:11] VITALS: BP 124/61; PULSE 64
[2023-07-09 15:03] VITALS: BP 126/66; PULSE 62
[2023-07-14 11:00] VITALS: BP 138/86; PULSE 70; O2SAT 96
[2023-07-21 13:03] VITALS: BP 106/53; PULSE 68
[2023-07-28 13:29] VITALS: BP 128/62; PULSE 71
[2023-07-30 11:00] VITALS: BP 122/56; PULSE 66
[2023-08-06 11:00] VITALS: BP 138/66; PULSE 60
== END 2023-08-06 23:59 | disposition home or self-care (01) ==
LOC: CR 11:00
PROVIDERS: PCP Family Medicine; Visit Provider Internal Medicine Cardiovascular Disease
DX: R69 Illness, unspecified (principal)

== ENCOUNTER 2023-08-10 07:01 | Outpatient (CLI) | payer MEDICARE, SELFPAY | END 2023-08-10 07:02 | disposition home or self-care (01) | LOC: PUVA 07:01 | PROVIDERS: PCP Family Medicine; Visit Provider Dermatology | DX: L40.9 Psoriasis, unspecified (principal) | CPT/HCPCS: 96900 ==

== ENCOUNTER 2023-08-13 07:07 | Outpatient (CLI) | payer MEDICARE, SELFPAY | END 2023-08-13 07:08 | disposition home or self-care (01) | LOC: PUVA 07:08 | PROVIDERS: PCP Family Medicine; Visit Provider Dermatology | DX: L40.9 Psoriasis, unspecified (principal) | CPT/HCPCS: 96900 ==

== ENCOUNTER 2023-08-17 07:03 | Outpatient (CLI) | payer MEDICARE, SELFPAY | END 2023-08-17 07:04 | disposition home or self-care (01) | LOC: PUVA 07:04 | PROVIDERS: PCP Family Medicine; Visit Provider Dermatology | DX: L40.9 Psoriasis, unspecified (principal) | CPT/HCPCS: 96900 ==

== ENCOUNTER 2023-08-20 07:03 | Outpatient (CLI) | payer MEDICARE, SELFPAY | END 2023-08-20 07:04 | disposition home or self-care (01) | LOC: PUVA 07:03 | PROVIDERS: PCP Family Medicine; Visit Provider Dermatology | DX: L40.9 Psoriasis, unspecified (principal) | CPT/HCPCS: 96900 ==

== ENCOUNTER 2023-08-24 07:09 | Outpatient (CLI) | payer MEDICARE, SELFPAY | END 2023-08-24 07:10 | disposition home or self-care (01) | LOC: PUVA 07:09 | PROVIDERS: PCP Family Medicine; Visit Provider Dermatology | DX: L40.9 Psoriasis, unspecified (principal) | CPT/HCPCS: 96900 ==

== ENCOUNTER 2023-08-27 11:54 | Outpatient (RCR) | payer SELFPAY ==
[2023-08-11 11:00] VITALS: BP 120/59; PULSE 70
[2023-08-13 12:33] VITALS: BP 118/63; PULSE 68
[2023-08-18 11:23] VITALS: BP 130/75; PULSE 63
[2023-08-20 11:31] VITALS: BP 126/66; PULSE 62
[2023-08-25 13:51] VITALS: BP 121/74; PULSE 66
[2023-08-27 11:57] VITALS: BP 120/57; PULSE 69
== END 2023-09-05 23:59 | disposition home or self-care (01) ==
LOC: CR 11:54
PROVIDERS: PCP Family Medicine; Visit Provider Internal Medicine Cardiovascular Disease
DX: R69 Illness, unspecified (principal)

== ENCOUNTER → 2023-08-30 10:40 | Outpatient (BNVA) | payer MEDICARE, SELFPAY | PROVIDERS: PCP Family Medicine; Visit Provider Internal Medicine Cardiovascular Disease | DX: I44.7 Left bundle-branch block, unspecified (principal); I42.9 Cardiomyopathy, unspecified; Z86.79 Personal history of other diseases of the circulatory system; Z95.810 Presence of automatic (implantable) cardiac defibrillator | CPT/HCPCS: 99213 ==

== ENCOUNTER 2023-11-05 11:51 | Outpatient (RCR) | payer SELFPAY ==
[2023-10-13 11:24] VITALS: BP 131/76; PULSE 66
--- OUTSIDE RECORDS SUMMARY | 2023-10-13 11:49 | XMS_ITS | Encounter Summary ---
Author Organization [facility] Address [address] [place] [address] Care Team Providers Care Laundry Superintendent Name Role Phone Lolly Oliveira MD Primary Care Provider [phone] Encounter Details Date Type Department Care Team (Late st Contact Info) Description 04/17/2005 Results Only [facility] - [place] conversion [address] [place] [address] Lolly Oliveira MD [address] [place], [place] [id number] Social History Tobacco Use Types Packs/Day Years Used Date Smoking Tobacco: Never Assessed Sex and Gender Information Value Date Recorded Sex Assigned at Not on file Gender Identity Not on file Sexual Orientation Not on file documented as of this encounter Plan of Treatment Not on file documented as of this encounter Procedures Procedure Name Priority Date/Time Associated Diagnosis Comments CYTOPATHOLOGY Routine 04/17/2005 0:00 EST documented in this encounter Results * CYTOPATHOLOGY (04/17/2005 0:00 EST) Pathology Report: CYTOPATHOLOGY REPORT Reports generated via electronic interface contain original data; however they are lacking the format of the original report. Caution should be taken when reading/interpreti ng unformatted reports. Name: ? JING ALVARENGA ? Accession #: ? [id number] : ? 1950 (Age: 54) ??F ?Collect Date: ? 04/17/2005 Location: ? [facility] ? Receive Date: ? 04/21/2005 Provider: ?LOLLY OLIVEIRA MD Copy to: ? Specimen/Source: ?ThinPrep Pap Test, Cervix/Endocervix, processed on [employer]atPrep Imaging System, with manual evaluation Last Menstrual Period: ? Treatment History: ? Cone biopsy: 25 years ago ? SPECIMEN ADEQUACY ? Satisfactory for Evaluation - transformation zone component present GENERAL CATEGORIZATION ? Negative for Intraepithelial Lesion or Malignancy ? Document reviewed and electronically signed by: ? BERHANE Faulkner(ASCP) ? Report Date: ??04/23/2005 10:56 End of Report [facility] 04/17/2005 04/21/2005 Lolly Oliveira MD PATHOLOGY ORDERABLES [facility] [address] [place] [address] documented in this encounter Visit Diagnoses Not on filedocumented in this encounter Care Teams Laundry Superintendent Relationship Specialty Start Date End Date Lolly Oliveira MD [address] [place] [address] PCP - General 11/13/08 documented as of this encounter
--- OUTSIDE RECORDS SUMMARY | 2023-10-13 11:49 | XMS_ITS | Encounter Summary ---
Author Organization [facility] Address [address] [place] [address] Care Team Providers Care Roofer Helper Name Role Phone Lolly Oliveira MD Primary Care Provider [phone] Encounter Details Date Type Department Care Team (Late st Contact Info) Description 02/11/2021 Lab Requisition [facility] Pathology & Laboratory Medicine - [address] [address] Outr Resulting Lab, Provider Social History Tobacco Use Types Packs/Day Years Used Date Smoking Tobacco: Never Assessed Sex and Gender Information Value Date Recorded Sex Assigned at Not on file Gender Identity Not on file Sexual Orientation Not on file documented as of this encounter Plan of Treatment Not on file documented as of this encounter Procedures Procedure Name Priority Date/Time Associated Diagnosis Comments ZZCOVID-19 TEST [facility] PCR Today 02/11/2021 8:00 EST COVID-19 TESTING Routine 02/11/2021 8:00 EST documented in this encounter Results * COVID-19 TEST [facility] PCR (02/11/2021 8:00 EST) Swab 02/11/2021 8:00 EST 02/11/2021 22:22 EST Provider Outr Resulting Lab MICROBIOLOGY - GENERAL ORDERABLES [facility] [address] [place] [address] * COVID-19 TESTING (02/11/2021 8:00 EST) COVID-19 rt-PCR Result Negative Negative 02/12/2021 14:17 EST [facility] Comment: This test has not been FDA cleared or approved. This test has been authorized by FDA under an EUA for use by authorized laboratories. This test has been authorized only for detection of nucleic acid from 2019-nCoV, not for any other viruses or pathogens. This test is only authorized for the duration of the declaration that circumstances exist justifying the authorization of emergency use of in vitro diagnostic tests for detection and/or diagnosis of 2019-nCoV under section 564(b)(1) of Act, 21 U.S.C ?? 360bbb-3(b) (1), unless the authorization is terminated or revoked sooner. Negative results do not preclude 2019-nCoV infection and should not be used as the sole basis for treatment or other patient management decisions. Negative results must be combined with clinical observations, patient history, and epidemiological information. Testing was performed using the med SARS-CoV-2 assay ([employer] on the Med 6800 System Performing Lab Med 6800 [facility] 02/12/2021 14:17 EST [facility] Swab 02/11/2021 8:00 EST 02/11/2021 22:22 EST Provider Outr Resulting Lab MICROBIOLOGY - GENERAL ORDERABLES [facility] [address] [place] [address] documented in this encounter Visit Diagnoses Not on filedocumented in this encounter Care Teams Roofer Helper Relationship Specialty Start Date End Date Lolly Oliveira MD [address] [place] [address] PCP - General 11/13/08 documented as of this encounter
--- OUTSIDE RECORDS SUMMARY | 2023-10-13 11:49 | XMS_ITS | Encounter Summary ---
Author Organization [facility] Address [address] [place] [address] Care Team Providers Care Mask Designer Name Role Phone Lolly Oliveira MD Primary Care Provider [phone] Encounter Details Date Type Department Care Team (Late st Contact Info) Description 05/02/2004 Results Only [facility] - [place] conversion [address] [place] [address] Lolly Oliveira MD [address] [place], [place] [id number] Social History Tobacco Use Types Packs/Day Years Used Date Smoking Tobacco: Never Assessed Sex and Gender Information Value Date Recorded Sex Assigned at Not on file Gender Identity Not on file Sexual Orientation Not on file documented as of this encounter Plan of Treatment Not on file documented as of this encounter Procedures Procedure Name Priority Date/Time Associated Diagnosis Comments HPV DETECTION, HIGH RISK TYPES Routine 05/02/2004 9:32 EST CYTOPATHOLOGY Routine 05/02/2004 0:00 EST documented in this encounter Results * HUMAN PAPILLOMA VIRUS DNA TEST (05/02/2004 9:32 EST) Specimen Description Cervix, ThinPrep vial [facility] Result Negative for HPV types 16, 18, 31, 33, 35, 39, 45, 51, 52, 56, 58, 59, and 68. [facility] Report Status Final [id number] [facility] 05/02/2004 9:32 EST 05/10/2004 9:32 EST Lolly Oliveira MD MICROBIOLOGY - GENER AL ORDERABLES [facility] [address] [place] [address] * CYTOPATHOLOGY (05/02/2004 0:00 EST) Pathology Report: CYTOPATHOLOGY REPORT Reports generated via electronic interface contain original data; however they are lacking the format of the original report. Caution should be taken when reading/interpreti ng unformatted reports. Name: ? JING ALVARENGA ? Accession #: ? [id number] : ? 1950 (Age: 53) ??F ?Collect Date: ? 05/02/2004 Location: ? [facility] ? Receive Date: ? 05/06/2004 Provider: ?LOLLY OLIVEIRA MD Copy to: ? Specimen/Source: ?ThinPrep Pap Test, Cervix/Endocervix Last Menstrual Period: ? Years ago Previous Gynecologic Pathology: ? Yes: 15 +/- Treatment History: ? Cone biopsy Other: ? HPVDX - HPV testing requested regardless of diagnosis on current ThinPrep Pap test. ? SPECIMEN ADEQUACY ? Satisfactory for Evaluation - transformation zone component present GENERAL CATEGORIZATION ? Negative for Intraepithelial Lesion or Malignancy ? Document reviewed and electronically signed by: ? BERHANE Berrios(ASCP) ? Report Date: ??05/09/2004 13:30 End of Report [facility] 05/02/2004 05/06/2004 Lolly Oliveira MD PATHOLOGY ORDERABLES Performing Organization Address City/State/[facility] Co de Phone Number [facility] [address] [place] [address] documented in this encounter Visit Diagnoses Not on filedocumented in this encounter Care Teams Mask Designer Relationship Specialty Start Date End Date Lolly Oliveira MD [address] [place] [id number] PCP - General 11/13/08 documented as of this encounter
--- OUTSIDE RECORDS SUMMARY | 2023-10-13 11:49 | XMS_ITS | Encounter Summary ---
Author Organization [facility] Address [address] [place] [address] Care Team Providers Care Ems Driver Name Role Phone Lolly Oliveira MD Primary Care Provider [phone] Encounter Details Date Type Department Care Team (Late st Contact Info) Description 11/13/2020 Lab Requisition [facility] Pathology & Laboratory Medicine - [address] [address] Outr Resulting Lab, Provider Social History Tobacco [...] Comments ZZCOVID-19 TEST [facility] PCR Today 11/13/2020 7:30 EDT COVID-19 TESTING Routine 11/13/2020 7:30 EDT documented in this encounter Results * COVID-19 TEST [facility] PCR (11/13/2020 7:30 EDT) Swab ENTIRE NASOPHARYNX / Unknown 11/13/2020 7:30 EDT 11/13/2020 20:57 EDT Provider Outr Resulting Lab MICROBIOLOGY - GENERAL ORDERABLES [facility] [address] [place] [address] * COVID-19 TESTING (11/13/2020 7:30 EDT) COVID-19 rt-PCR Result Negative Negative 11/14/2020 11:46 EDT [facility] Comment: This test has [...] was performed using the med SARS-CoV-2 assay ([employer] on the Med 6800 System Performing Lab Med 6800 [facility] 11/14/2020 11:46 EDT [facility] Swab 11/13/2020 7:30 EDT 11/13/2020 20:57 EDT Provider Outr Resulting Lab MICROBIOLOGY - GENERAL ORDERABLES [facility] [address] [place] [address] documented in this encounter Visit Diagnoses Not on filedocumented in this encounter Care Teams Ems Driver Relationship Specialty Start Date End Date Lolly Oliveiar MD [address] [place] [address] PCP - General 11/13/08 documented as of this encounter
--- OUTSIDE RECORDS SUMMARY | 2023-10-13 11:49 | XMS_ITS | Encounter Summary ---
Author Organization [facility] Address [address] [place] [address] Care Team Providers Care Systems Software Manager Name Role Phone Lolly Oliveira MD Primary Care Provider [phone] Encounter Details Date Type Department Care Team (Late st Contact Info) Description 05/29/2002 Results Only [facility] [address] [place] [address] Silvia Diehl, [address] [place] [phone] Social History Tobacco Use Types Packs/Day Years Used Date Smoking Tobacco: Never Assessed Sex and Gender Information Value Date Recorded Sex Assigned at Not on file Gender Identity Not on file Sexual Orientation Not on file documented as of this encounter Plan of Treatment Not on file documented as of this encounter Procedures Procedure Name Priority Date/Time Associated Diagnosis Comments CYTOPATHOLOGY Routine 05/29/2002 0:00 EST documented in this encounter Results * CYTOPATHOLOGY (05/29/2002 0:00 EST) Pathology Report: CYTOPATHOLOGY REPORT Reports generated via electronic interface contain original data; however they are lacking the format of the original report. Caution should be taken when reading/interpreti ng unformatted reports. Name: ? JING MOTT ? Accession #: ? [id number] : ? 1950 (Age: 51) ??F ?Collect Date: ? 05/29/2002 Location: ? [facility] ? Receive Date: ? 05/31/2002 Provider: ?SILVIA DIEHL COMMUNITY PHARMACIST Copy to: ? Specimen/Source: ?ThinPrep Pap Test, Cervix/Endocervix Last Menstrual Period: ? Hormonal/Contracep tive Status: ? Progesterone: Estridol ? SPECIMEN ADEQUACY ? Satisfactory for Evaluation - transformation zone component absent GENERAL CATEGORIZATION ? Negative for Intraepithelial Lesion or Malignancy INTERPRETATION ? Fungal organisms present morphologically consistent with Shahnaz species. ? Document reviewed and electronically signed by: ? BERHANE Faulkner(ASCP) ? Report Date: ??06/02/2002 16:07 End of Report [facility] 05/29/2002 05/31/2002 Silvia Diehl COMMUNITY PHARMACIST PATHOLOGY ORDERABLES [facility] [address] [place] [address] documented in this encounter Visit Diagnoses Not on filedocumented in this encounter Care Teams Systems Software Manager Relationship Specialty Start Date End Date Lolly Oliveira MD [address] [place] [address] PCP - General 11/13/08 documented as of this encounter
--- OUTSIDE RECORDS SUMMARY | 2023-10-13 11:49 | XMS_ITS | Encounter Summary ---
Author Organization [facility] Address [address] [place] [address] Care Team Providers Care Vertical Mill Operator Name Role Phone Lolly Oliveira MD Primary Care Provider [phone] Encounter Details Date Type Department Care Team (Late st Contact Info) Description 04/12/2007 Results Only [facility] [place] [facility] [address] [place] [address] Lolly Oliveira MD [address] [place], [place] [id number] Social History Tobacco Use Types Packs/Day Years Used Date Smoking Tobacco: Never Assessed Sex and Gender Information Value Date Recorded Sex Assigned at Not on file Gender Identity Not on file Sexual Orientation Not on file documented as of this encounter Plan of Treatment Not on file documented as of this encounter Procedures Procedure Name Priority Date/Time Associated Diagnosis Comments CYTOPATHOLOGY Routine 04/12/2007 0:00 EST documented in this encounter Results * CYTOPATHOLOGY (04/12/2007 0:00 EST) Pathology Report: CYTOPATHOLOGY REPORT Reports generated via electronic interface contain original data; however they are lacking the format of the original report. Caution should be taken when reading/interpreti ng unformatted reports. Name: ? JING ALVARENGA ? Accession #: ? [id number] : ? 1950 (Age: 56) ??F ?Collect Date: ? 04/12/2007 Location: ? [facility] ? Receive Date: ? 04/13/2007 Provider: ?LOLLY OLIVEIRA MD Copy to: ? Specimen/Source: ?ThinPrep Pap Test, Cervix/Endocervix, processed on [employer] ThinPrep Imaging System, with manual evaluation Last Menstrual Period: ? Years Ago Previous Gynecologic Pathology: ? Yes: ABN Pap, Cone Bx for ABN Cells years ago Treatment History: ? Cone biopsy: for abnl cells years ago Other: ? HPVA - HPV testing requested if ASC-US on the current ThinPrep Pap test. ? SPECIMEN ADEQUACY ? Satisfactory for Evaluation - assessment of transformation zone component not applicable ( e.g. atrophy, vaginal sample, hysterectomy) GENERAL CATEGORIZATION ? Negative for Intraepithelial Lesion or Malignancy ? Document reviewed and electronically signed by: ? Anahy Kelly, BRITANY(ASCP) ? Report Date: ??04/18/2007 12:31 End of Report [facility] 04/12/2007 04/13/2007 Lolly Oliveira MD PATHOLOGY ORDERABLES [facility] [address] [place] [address] documented in this encounter Visit Diagnoses Not on filedocumented in this encounter Care Teams Vertical Mill Operator Relationship Specialty Start Date End Date Lolly Oliveira MD [address] [place] [address] PCP - General 11/13/08 documented as of this encounter
--- OUTSIDE RECORDS SUMMARY | 2023-10-13 11:49 | XMS_ITS | Encounter Summary ---
Author Organization [facility] Address [address] [place] [address] Care Team Providers Care Skid Worker Name Role Phone Lolly Oliveira MD Primary Care Provider [phone] Encounter Details Date Type Department Care Team (Late st Contact Info) Description 06/16/2012 Results Only [facility] - [facility] [place] [place] [address], [place] [id number] Lolly Oliveira MD [address] [place], [place] [phone] Social History Tobacco Use Types Packs/Day Years Used Date Smoking Tobacco: Never Assessed Sex and Gender Information Value Date Recorded Sex Assigned at Not on file Gender Identity Not on file Sexual Orientation Not on file documented as of this encounter Plan of Treatment Not on file documented as of this encounter Procedures Procedure Name Priority Date/Time Associated Diagnosis Comments PAP TEST- RESULT ONLY Routine 06/16/2012 0:00 EDT documented in this encounter Results * PAP TEST- RESULT ONLY (06/16/2012 0:00 EDT) Pathology Report: CYTOPATHOLOGY REPORT Reports generated via electronic interface contain original data; however they are lacking the format of the original report. Caution should be taken when reading/interpreti ng unformatted reports. Name: ? JING ALVARENGA ? Accession #: ? [id number] : ? 1950 (Age: 61) ??F ?Collect Date: ? 06/16/2012 Location: ? [facility] ? Receive Date: ? 06/17/2012 Provider: ?LOLLY OLIVEIRA MD Copy to: ? Specimen/Source: ?Pap Test, Cervix/Endocervix, ThinPrep Imaging System with manual evaluation Last Menstrual Period: ? Previous Gynecologic Pathology: ? Yes: history of abnormal pap with negative HPV ? SPECIMEN ADEQUACY ? Satisfactory for Evaluation - assessment of transformation zone component not applicable ( e.g. atrophy, vaginal sample, hysterectomy) - scant squamous epithelial component secondary to excessive inflammation GENERAL CATEGORIZATION ? Negative for Intraepithelial Lesion or Malignancy ? Document reviewed and electronically signed by: ? Grace Barfield, [place](ASCP) ? Report Date: ??06/21/2012 11:04 End of Report [facility] 06/16/2012 06/17/2012 Lolly Oliveira MD PATHOLOGY ORDERABLES [facility] [address] [place] [address] documented in this encounter Visit Diagnoses Not on filedocumented in this encounter Care Teams Skid Worker Relationship Specialty Start Date End Date Lolly Oliveira MD [address] [place] [address] PCP - General 11/13/08 documented as of this encounter
--- OUTSIDE RECORDS SUMMARY | 2023-10-13 11:49 | XMS_ITS | Encounter Summary ---
Author Organization [facility] Address [address] [place] [address] Care Team Providers Care Vice President Sales And Marketing Name Role Phone Unavailable Primary Care Provider Unavailabl e Encounter Details Date Type Department Care Team (Late st Contact Info) Description 11/07/2008 Orders Only [facility] - [facility] ([facility] [address] [place] [address] Kenneth Parker MD [address] [place] [id number] Social History Tobacco Use Types Packs/Day Years Used Date Smoking Tobacco: Never Assessed Sex and Gender Information Value Date Recorded Sex Assigned at Not on file Gender Identity Not on file Sexual Orientation Not on file documented as of this encounter Plan of Treatment Not on file documented as of this encounter Procedures Procedure Name Priority Date/Time Associated Diagnosis Comments SURGICAL PATHOLOGY Routine 11/07/2008 0:00 EDT documented in this encounter Results * SURGICAL PATHOLOGY (11/07/2008 0:00 EDT) Pathology Report: SURGICAL PATHOLOGY REPORT ? Reports generated via electronic interface contain original data; ? however they are lacking the format of the original report. ? Caution should be taken when reading/interpreti ng unformatted reports. ? Name: ? LYLE, JING ? Accession #: ? [id number] ? : ? 1950 (Age: 58) ??F ? Collect Date: ? 11/07/2008 ? Location: ? [facility] ? Receive Date: ? 11/08/2008 ? Provider: KENNETH PARKER MD ? Copy to: JU CORTEZ MD ? Final Pathologic Diagnosis: ? Endometrium, biopsy: ? 1. ??Superficial strips of inactive endometrial lining. ? 2. ??Scant stroma; insufficient for evaluation. ? Document reviewed and electronically signed by: ? Soco SAlida Jordan, MD ? Report ??Date: 11/13/2008 16:18 ? By the signature above, the attending physician certifies that he/she has ? personally conducted a gross and/or microscopic examination of the described ? specimens and rendered or confirmed the above diagnosis. ? Specimen(s) Received: ? Endometrial biopsy ? Clinical History: ? Clinical diagnosis code: ??endometrial hyperplasia, 621.30 ? Gross Description: ? Received in formalin labelled Jing Mott and EMB is a 0.4 x 0.4 x 0.2 cm aggregate of pineda-brown mucinous material. ??The specimen is submitted ? entirely in one cassette following filtration. (Aaron Gray)/lgk ? End of Report ? [facility] 11/07/2008 11/08/2008 16: 51 EDT Kenneth Parker MD PATHOLOGY ORDERABLES Performing Organization Address City/State/[facility] Co de Phone Number [facility] [address] [place] [address] documented in this encounter Visit Diagnoses Not on filedocumented in this encounter
--- OUTSIDE RECORDS SUMMARY | 2023-10-13 11:49 | XMS_ITS | Clinical Summary ---
Author Organization [facility] Address [address] [place] [address] Care Team Providers Care Manager College Name Role Phone Lolly Oliveira MD Primary Care Provider [phone] Social History Tobacco Use Types Packs/Day Years Used Date Smoking Tobacco: Never Assessed Sex and Gender Information Value Date Recorded Sex Assigned at Not on file Gender Identity Not on file Sexual Orientation Not on file Plan of Treatment Health Maintenance Due Date Last Done Comments Hepatitis C Screen 1950 RSV Immunization ( o r 60+ Years) (1 - 1-dose 60+ series) 2008 Fall Risk Screening 2013 COVID-19 Vaccine ( season) 2022 Care Teams Manager College Relationship Specialty Start Date End Date Lolly Oliveira MD [address] [place], [place] [phone] PCP - General 11/13/08
--- OUTSIDE RECORDS SUMMARY | 2023-10-13 11:49 | XMS_ITS | Continuity of Care Document ---
Author Organization [place] [facility], [facility] Address [address] [place] [address] Care Team Providers Care Railroad Watchman Name Role Phone [facility] OFFICE Optometris t ASHLY THURSTON Signal Person JAYCOB MARTINEZ Orthopedic Surgeon [phone] ROXANA KELLEY Branch Associate Teller FLOWER RAMSEY Dentist Assessment No assessment recorded. Plan of Treatment Reminders Order Date Submit Date Provider Last Modified By Organization Details Last Modified Time Details Appointments Follow Up 30 2023 07:30A M JU CORTEZ Not available Not available Not available Lab None recorded. Referral physical therapist referral 2023 024 Chinedu Amato PT, [address], [place], [address], 10/11/2023 08:39:49 Procedures None recorded. Surgeries None recorded. Imaging None recorded. Medication Orders meclizine 25 mg tablet 2023 024 LAS[id number], [address] [place], [address], 09/01/2023 13:22:14 Patient TargetsNo targets recorded. Patient Instructions Encounter Date Encounter Id Patient Instructions Last Modified By Organization Details Last Modified Time 09/01/2023 [id number] 1. The earwax from your ears were removed today. This may be contributing to some of the vertigo you are experiencing. 2. I would like to give this another 1 to 2 days to see if it begins to improve now that the wax has been removed. 3. If it does not improve I have sent for antivertigo medication called meclizine. You can take this tablet up to 3 times per day as needed but please be cautious with its use as it can cause some drowsiness and can cause some urinary retention in older folks. If you do not need this medication you should not take it. 4. I have also sent referral to physical therapy in the event that symptoms do not improve you may get some additional relief from some skilled maneuvers on their part. 5. I do not expect you should have any significant sudden worsening of symptoms. If so please seek follow-up as needed. [email or web address] Not available 09/01/2023 13:23:33 Reason for Referral Thermodynamics Professor Referral for Onyc homycosis onychomycosis, calluses Referring Physician: Ju Cortez, Family Medicine, Encounter Date: 05/21/2023 Physical Therapist Referral for Vertigo Referring Physician: Jessica Ingram Family [facility], Encounter Date: 09/01/2023 Problems Name Status Onset Date Resolution Date Notes Provider Name and Address Organization Details Recorded Time Asthma Active 200204/14/2021 - Comments only - Ju Cortez MD - Not too much of an issue recently. She does keep albuterol inhaler available if needed. Problem Code: 493.90; Problem Code Type: ICD-9; Not Available [facility] 3 04:01:51 Atypical glandular cells on cervical Papanicolaou smear Active 2007 Problem Code: 795.00; Problem Code Type: ICD-9; Not Available [facility] 3 04:01:51 Dizziness and giddiness Active 201404/14/2021 - Comments only - Ju Cortez MD - , Intermittent. She has learned to deal with it using the Jd's maneuver. She will call if any significant worsening. Problem Code: R42; Problem Code Type: ICD-10; Not Available [facility] 3 04:01:52 Essential hypertension Active 201401/11/2022 - Comments only - Ju Cortez MD - Blood pressure well controlled with the lisinopril and Toprol. Problem Code: I10; Problem Code Type: ICD-10; Not Available [facility] 3 04:01:52 Adult health examination Active 201504/16/2022 - Comments only - Ju Cortez MD - UTD with mammo, has a DEXA scheduled ( dx of osteoporosis) , will check an A1c. Problem Code: Z00.00; Problem Code Type: ICD-10; Not Available [facility] 3 04:01:52 Disorder of skin and/or subcutaneous tissue Active 201509/17/2015 - Comments only - Ju Cortez MD - the lesions on the buttucks appear to have been possible boils that are now healing vs atopic rxn resolving. At this point no tx needed. If worsening/rec urring she will call. I don't believe these are related to rubbing while walking Problem Code: L98.9; Problem Code Type: ICD-10; Not Available [facility] 3 04:01:52 Pain in right hip joint Completed 201512/02/2022 Problem Code: M25.551; Problem Code Type: ICD-10; Not Available [facility] 3 04:01:52 Onychomycosis due to dermatophyte Active 201609/22/2016 - Comments only - Ju Cortez MD - she is going to contact podiatry to find out if they have any other topical txs that might work. She is not interested in systemic tx Problem Code: B35.1; Problem Code Type: ICD-10; Not Available [facility] 3 04:01:52 Hearing loss of right ear Completed 201712/10/2017 11/26/2017 - Comments only - Naseem Gil PA-C - Ceruminosis treated in-office today. If hearing fails to be fully restored over the course of the weekend, will consider for ENT refer for formal audiology assessment. Problem Code: H91.91; Problem Code Type: ICD-10; Not Available [facility] 3 04:01:52 Abnormal weight gain Active 2018 Problem Code: R63.5; Problem Code Type: ICD-10; Not Available [facility] 3 04:01:53 Disorder of hip joint Active 201801/11/2022 - Comments only - Ju Cortez MD - ,rt. For which she would like a total hip replacement. 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 She is trying to continue being as mobile as she can comfortably. Problem Code: M12.859; Problem Code Type: ICD-10; Not Available [facility] 3 04:01:53 Acute vaginitis Completed 201801/04/2019 12/21/2018 - Comments only - Naseem Gil PA-C - Will await resutls of today's collected VPS to determine indication for further treatment. Problem Code: N76.0; Problem Code Type: ICD-10; Not Available [facility] 3 04:01:53 Intertrigo Completed 201801/04/2019 12/21/2018 - Comments only - Naseem Gil PA-C - Patient encouraged to keep skin folds as clean and dry as possible to avoid reactivation (suggested physics department chair after bathing). Additionally, could consider to use OTC DESITIN for acute skin healing. Problem Code: L30.4; Problem Code Type: ICD-10; Not Available [facility] 3 04:01:53 Pre-surgery evaluation Completed 201801/23/2019 01/09/2019 - Comments only - Naseem Gil PA-C - Today's EKG shows stable LBBB (compared to study 10/19/14) with NSR at 69bpm. Patient to f/u for pre-operative laboratory testing and anesthesia consult as scheduled 01/17/19. Problem Code: Z01.818; Problem Code Type: ICD-10; Not Available [facility] 3 04:01:53 Hip joint prosthesis present Active 2018 Problem Code: Z96.642; Problem Code Type: ICD-10; Not Available [facility] 3 04:01:53 Dyspnea Completed 201903/27/2019 03/13/2019 - Comments only - Naseem Gil PA-C - Suspect some component of RAD. Assuming today's laboarory testing returns as benign, patient agrees to trial RXd VENTOLIN HFA 2 puffs Q4-6hr PRN as management. We will plan to touch base with patient by phone on F 03/17/19 for status update. Problem Code: R06.02; Problem Code Type: ICD-10; Not Available [facility] 3 04:01:54 Edema Completed 201906/21/2019 06/07/2019 - Comments only - Naseem Gil PA-C - Patient reassured nothing concerning on today's PX to raise suspicion for DVT. Suspect minor calf muscle strain. OK to continue to use compression stockings for symtpomatic relief and consider calf stretches. F/U PRN. 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 - Comments only - Ju Cortez MD - being followed by derm, remaining under reasonable control with the UV tx and prn clobetasol cream Problem Code: L40.4; Problem Code Type: ICD-10; Not Available [facility] 3 04:01:54 Stool finding Active 2021 Problem Code: R19.5; Problem Code Type: ICD-10; Not Available [facility] 3 04:01:54 Specialized medical examination Active 2021 Problem Code: Z01.89; Problem Code Type: ICD-10; Not Available [facility] 3 04:01:54 Edema Active 2021 Problem Code: R60.9; Problem Code Type: ICD-10; Not Available [facility] 3 04:01:55 Screening mammography Active 2021 Problem Code: Z12.31; Problem Code Type: ICD-10; Not Available [facility] 3 04:01:55 Abnormal finding on evaluation procedure Active 2021 Problem Code: R89.9; Problem Code Type: ICD-10; Not Available [facility] 3 04:01:55 Dyspnea Active 2021 Problem Code: R06.02; Problem Code Type: ICD-10; Not Available [facility] 3 04:01:55 Cardiomyopath y Active 202109/04/2022 - Comments only - Ju Cortez MD - Clinically remaining stable on the lisinopril, furosemide 20 mg daily, Jardiance, Toprol, rosuvastatin, aspirin. ICD/pacemaker in place. Following with cardiology. She is walking/exerc ising regularly. Problem Code: I42.9; Problem Code Type: ICD-10; Not Available [facility] 3 04:01:55 Heart failure Active 2021 Problem Code: I50.9; Problem Code Type: ICD-10; Not Available [facility] 3 04:01:56 Family history of breast cancer Active 2021 Problem Code: Z80.3; Problem Code Type: ICD-10; Not Available [facility] 3 04:01:56 Burn Active 202101/11/2022 - Comments only - Ju Cortez MD - Healing slowly, no evidence of infection. If she has any further questions regarding this she will let us know. Problem Code: T30.0; Problem Code Type: ICD-10; Not Available [facility] 3 04:01:56 Senile osteoporosis Active 202101/11/2022 - Comments only - Ju Cortez MD - Due for a repeat DEXA scan. Ordered. She does take an lbad-haw-qfha ter vitamin D supplement I believe. Problem Code: M81.0; Problem Code Type: ICD-10; Not Available [facility] 3 04:01:56 Hyperlipidemi a Active 202204/16/2022 - Comments only - Ju Cortez MD - will check LFTs, CPK, on rosuvastatin 5mg daily which has brought her lipids into goal range. Problem Code: E78.5; Problem Code Type: ICD-10; Not Available [facility] 3 04:01:56 Adjustment disorder Active 2022 Problem Code: F43.20; Problem Code Type: ICD-10; Not Available [facility] 3 04:01:56 Dysuria Active 2022 Problem Code: R30.9; Problem Code Type: ICD-10; Not Available [facility] 3 04:01:57 Itching of skin Active 2022 Problem Code: L29.8; Problem Code Type: ICD-10; Not Available [facility] 3 04:01:57 Automatic implantable cardiac defibrillator in situ Active 2022 Problem Code: Z95.810; Problem Code Type: ICD-10; Not Available [facility] 3 04:01:57 Glycosuria Active 202209/04/2022 - Comments only - Ju Cortez MD - , No prior diagnosis of diabetes. She is developing diabetes that could be number perineal symptoms. Problem Code: R81; Problem Code Type: ICD-10; Not Available [facility] 3 04:01:57 Vulval and/or perineal noninflammato ry disorders Active 202209/04/2022 - Comments only - Ju Cortez MD - , Predominantly itchy. Last V PMS was negative, repeat done today and pending. At this point we will have her start topical cortisone cream. She will use what she has at home. I wonder if this is an early lichen simplex chronicus versus lichen planus. No current erosions or significant scaling. We also discussed there could be an atopic component. She does wear cotton underwear, does not use a pad on a regular basis but once in a while. She will try and switch her laundry detergent to clear and free version. Problem Code: N90.89; Problem Code Type: ICD-10; Not Available [facility] 3 04:01:57 Allergic contact dermatitis Completed 202012/02/2022 Problem Code: L23.9; Problem Code Type: ICD-10; Not Available [facility] 3 04:02:02 Essential hypertension Completed 200107/25/2015 Problem Code: 401.9; Problem Code Type: ICD-9; Not Available [facility] 3 04:02:03 Polyp of colon Completed 201006/05/2021 Problem Code: K63.5; Problem Code Type: ICD-10; Not Available [facility] 3 04:02:03 History of vertigo Completed 201012/02/2022 01/10/2015 - Improved - Ju Cortez MD - she will continue with Jd's manoever PRN and call if worsening/not lisa helping Not Available [facility] 3 04:02:04 Acute sinusitis Completed 201912/16/2020 Problem Code: J01.90; Problem Code Type: ICD-10; Not Available [facility] 3 04:02:05 Pain of right lower leg Completed 202101/11/2022 Problem Code: M79.661; Problem Code Type: ICD-10; Not Available [facility] 3 04:02:06 Hyperlipidemi a Completed 200910/19/2017 Not Available [facility] 3 04:02:07 Dizziness and giddiness Completed 201408/14/2019 Problem Code: R42; Problem Code Type: ICD-10; Not Available [facility] 3 04:02:07 Hypertensive disorder Completed 201011/03/2018 Not Available [facility] 3 04:02:09 Diarrhea Completed 201610/19/2017 Problem Code: R19.7; Problem Code Type: ICD-10; Not Available [facility] 3 04:02:10 Anemia Completed 201901/11/2022 Problem Code: D64.9; Problem Code Type: ICD-10; Not Available [facility] 3 04:02:10 Howells - lesion Active 2022 Problem Code: L84; Problem Code Type: ICD-10; Not Available [facility] 4 05:37:51 Foot callus Active [address], [address] 4 11:29:32 Onychomycosis Active [address], [address] 4 11:29:44 Vertigo Active [address], [address] 4 13:20:57 Impacted cerumen of bilateral ears Active [address], [address] 4 13:21:03 Notes:*Problem Name: Colonos copy 2005 - Hyperplastic Polyp *ICD-10 Codes: *Problem Status: inactive *Comments: *Note Date: 04/29/2010 *Problem Name: Rt Breast Bx 2013 - Adenosis *ICD-10 Codes: *Problem Status: active *Comments: *Note Date: 08/01/2013 Problem Notes None recorded. Procedures Surgical History Date Name Laterality Status Provider Name and Address Organization Details Recorded Time 4 Cerumen Removal completed NATHAN HERNANDEZ Dr, [address] 09/01/2023 13:52:38 3 total replacement of right hip joint completed Cornelia juan, [facility] 03/31/2023 17:11:24 Imaging Results None recorded. Procedure Notes None recorded. Medical Equipment None Reported. Allergies Allergen ID Allergen Name Allergen Category Reaction Reaction Severity Criticality Documentation Date Start Date Code Code System Note Provider Name and Address Organization Details Recorded Time 87413 sulfadiaz ine medicatio n tachycard ia mild Not available 01/15/20232001 94978 RxNorm Tachy cardi a Not Available [facility] 3 16:22:29 Medications Name Sig Start Date Stop Date Status Note LastModified by Organization Details LastModified Time celecoxib 200 mg capsule TAKE ONE CAPSULE BY MOUTH TWICE A DAY NEEDED FOR PAIN 05/20 completed Not Available Not Available Not Available Augmentin 875 mg-125 mg tablet Take 1 tablet by mouth twice a day 12/11 completed Not Available Not Available Not Available Toprol XL 25 mg tablet,exte nded release Take 1 tablet by mouth once a day 12/11 completed Not Available Not Available Not Available metoprolol succinate ER 50 mg tablet,exte nded release 24 hr TAKE ONE TABLET BY MOUTH EVERY DAY active Not Available Not Available No t Available lisinopril 20 mg tablet TAKE ONE TABLET BY MOUTH EVERY DAY active Not Available Not Available No t Available clobetasol 0.05 % topical cream APPLY TO AREAS OF PSORIASIS TWO TIMES A DAY NEEDED active Not Available Not Available No t Available Ivette 60 mg tablet 1 TAB qd 12/04 completed Not Available Not Available Not Available penicillin V potassium 500 mg tablet TAKE ONE TABLET BY MOUTH FOUR TIMES A DAY UNTIL FINISHED 05/20 completed Not Available Not Available Not Available potassium chloride ER 10 mEq tablet,exte nded release Take 1 tablet by mouth once a day 09/22 completed Not Available Not Available Not Available methocarbam ol 750 mg tablet TAKE ONE TABLET BY MOUTH THREE TIMES A DAY NEEDED FOR SPASMS 05/20 completed Not Available Not Available Not Available meclizine 25 mg tablet TAKE ONE TABLET BY MOUTH THREE TIMES A DAY NEEDED active Not Available Not Available No t Available Tylenol 500 mg tablet 2 tablets po q8h PRN 09/11 completed Not Available Not Available Not Available pantoprazol e 40 mg tablet,kendy yed release TAKE ONE TABLET BY MOUTH EVERY DAY 05/20 completed Not Available Not Available Not Available triamcinolo ne acetonide 0.1 % topical ointment Apply 1 a small amount to affected area twice a day apply to lesions BID for 2 weeks then stop 01/28 completed Not Available Not Available Not Available dexamethaso ne 4 mg tablet TAKE ONE TABLET BY MOUTH EVERY DAY (START POST-OPER ATIVE DAY #1 - DAY AFTER SURGERY) 05/20 completed Not Available Not Available Not Available oxycodone 5 mg capsule Q4H PRN 03/13 completed Not Available Not Available Not Available aspirin 81 mg tablet Take 1 tablet by mouth once a day 12/25 completed Not Available Not Available Not Available furosemide 20 mg tablet TAKE ONE TABLET BY MOUTH EVERY DAY active Not Available Not Available No t Available albuterol 90 mcg/actuati on aerosol inhaler 2 PUFFS q6h 12/04 completed Not Available Not Available Not Available triamcinolo ne acetonide 0.1 % lotion Apply 1 a small amount to affected area twice a day apply to lesions BID X 2 weeks then stop 12/25 completed Not Available Not Available Not Available albuterol sulfate HFA 90 mcg/actuati on aerosol inhaler Inhale 2 puff using inhaler every four to six hours as needed for shortness of breath 2019 active Not Available Not Available Not Avai lable ferrous sulfate 325 mg (65 mg iron) tablet,kendy yed release Take 1 tablet by mouth once daily 2019 active Not Available Not Available Not Avai lable fluticasone propionate 50 mcg/actuati on nasal spray,suspe nsion SHAKE LIQUID AND USE 1 SPRAY IN EACH NOSTRIL EVERY DAY 2021 active Not Available Not Available Not Avai lable Flexeril 10 mg tablet 1 TAB TID 08/02 completed Not Available Not Available Not Available Azmacort 100 mcg/actuati on aerosol inhaler 2 PUFFS bid 05/01 completed Not Available Not Available Not Available oxycodone 5 mg tablet TAKE ONE TABLET BY MOUTH EVERY 6 HOURS NEEDED FOR PAIN 05/20 completed Not Available Not Available Not Available Adult Low Dose Aspirin 81 mg tablet,kendy yed release Take 1 tablet by mouth once a day active Not Available Not Available No t Available Clotrimazol e-3 2 % vaginal cream Insert 1 applicato rful into vagina at bedtime 07/12 completed Not Available Not Available Not Available rosuvastati n 5 mg tablet TAKE ONE TABLET BY MOUTH EVERY DAY active Not Available Not Available No t Available Klor-Con M10 mEq tablet,exte nded release TAKE ONE TABLET BY MOUTH EVERY DAY active Not Available Not Available No t Available Tindamax 500 mg tablet Take four tablets by mouth x 1. 10/15 completed Not Available Not Available Not Available Flovent HFA 110 mcg/actuati on aerosol inhaler 2 PUFFS BID 04/29 completed Not Available Not Available Not Available Fish Oil 1CAP daily 11/03 completed Not Available Not Available Not Available multivitami n 1TAB daily 10/15 completed Not Available Not Available Not Available Glucosamine Chondroitin Complx 2TAB twice daily 06/30 completed Not Available Not Available Not Available Zostavax (PF) 1 12/04 completed Not Available Not Available Not Available Caltrate 600-D Plus Minerals 600 mg calcium-400 unit tablet Take 1 tab by mouth daily 2014 active Not Available Not Available Not Avai lable Caltrate 600+D Plus Minerals 600 mg(1,500 mg)-400 unit chewable tablet Take 1 tablet by mouth once a day 11/13 completed Not Available Not Available Not Available Vitamin D3 50 mcg (2,000 unit) tablet Take 1 tablet by mouth once a day 2022 active Not Available Not Available Not Avai lable Lewis-Citrate 250 mg calcium-2.5 mcg (100 unit) tablet Take 1 by mouth daily 2014 active Not Available Not Available Not Avai lable Jardiance 10 mg tablet TAKE ONE TABLET BY MOUTH EVERY DAY active Not Available Not Available No t Available turmeric 450 mg-turmeric root extract 50 mg capsule Take 1 tablet by mouth daily 2019 active Not Available Not Available Not Avai lable Shingrix (PF) 50 mcg/0.5 mL intramuscul ar suspension, kit administe r Im now and repeat dose in 2-6 months 11/03 completed Not Available Not Available Not Available Vitals Date Recorded Body height Body mass index (BMI) Body weight Body temperature Respiratory rate Oxygen saturation Oxygen saturation in Arterial blood by Pulse oximetry Heart rate Systolic blood pressure Diastolic blood pressure Provider Name and Address Organization Details Last Updated DateTime 4 159.385 cm 38.7 kg/m2 26176.8 2 g 97.1 [degF] 17 /min 95 % 95 % 60 /min 139 mm[Hg] 69 mm[Hg] Vonda Fields RN [facility] 12:25:13 Social History Question Answer Notes LastModified by Organizat ion Details LastModified Time Tobacco Smoking Status Never Smoker DENYS Bauer, [facility] 05/21/2023 10:57:21 Would You Say That, In General, Your Health Is Very Good [email or web address] Information not available 05/21/2023 How Often Does Anyone, Including Family, Physically Hurt You? Never [email or web address] Information not available 05/21/2023 How Often Does Anyone, Including Family, Insult Or Talk Down To You? Never [email or web address] Information no t available 05/21/2023 How Often Does Anyone, Including Family, Threaten You With Harm? Never [email or web address] Information not available 05/21/2023 How Often Does Anyone, Including Family, Scream Or Curse At You? Never [email or web address] Information not available 05/21/2023 Within The Past 12 Months, You Worried That Your Food Would Run Out Before You Got Money To Buy More. Never True [email or web address] Information n ot available 05/21/2023 Within The Past 12 Months, The Food You Bought Just Didn't Last And You Didn't Have Money To Get More. Never True [email or web address] Information n ot available 05/21/2023 How Hard Is It For You To Pay For The Very Basics Like Food, Housing, Medical Care, And Heating? Would You Say It Is: Not Hard At All [email or web address] Information not available 05/21/2023 In The Past 12 Months, Has Lack Of Reliable Transportation Kept You From Medical Appointments, Meetings, Work Or From Getting Things Needed For Daily Living? No [email or web address] Information not available 05/21/2023 What Is Your Housing Situation Today? I Have Housing. [email or web address] Information not available 05/21/2023 How Often In The Past Year Have You Used Marijuana (including Smoking, Vaping, Dabbing, Or Edibles)? Never [email or web address] Information not available 05/21/2023 How Often In The Past Year Have You Used Prescription Medications That Were Not Prescribed To You? Never [email or web address] Information n ot available 05/21/2023 How Often In The Past Year Have You Taken Your Own Prescription Medication More Than The Way It Was Prescribed Or For Different Reasons Than Its Intended Purpose? Never [email or web address] Information no t available 05/21/2023 How Often In The Past Year Have You Used Other Drugs (for Example, Heroin, Cocaine, Meth, Salvia, Inhalants)? Never [email or web address] Information not available 05/21/2023 Have You Ever Used IV Drugs? No Information not available 05/21/2023 What Matters Most To You? Staying Healthy, Keeping Active. Getting Exercise And Losing Some Weight [email or web address] Information not available 05/21/2023 During The Past Four Weeks Has Your Physical And Emotional Health Limited Your Social Activities With Family And Friends, Neighbors, Or Groups? Not At All [email or web address] Information not available 05/21/2023 During The Past Four Weeks, Was Someone Available To Help You If You Needed And Wanted Help? (For Example, If You [place] Very Nervous, Lonely, Or Blue; Got Sick And Had To Stay In Bed; Needed Someone To Talk To; Needed Help With Daily Chores; Or Needed Help Just Taking Care Of Yourself.) No- Not At All Information n ot available 05/21/2023 During The Past Four Weeks, What Was The Hardest Physical Activity You Could Do For At Least 2 Minutes? Moderate [email or web address] Information not available 05/21/2023 Can You Get To Places Out Of Walking Distance Without Help? (For Example, Can You Travel Alone On Buses Or Taxis, Or Drive Your Own Car?) Yes [email or web address] Information not available 05/21/2023 Can You Go Shopping For Groceries Or Clothes Without Someone? s Help? Yes Information not available 05/21/2023 Can You Prepare Your Own Meals? Yes Information not available 05/21/2023 Can You Do Your Housework Without Help? Yes [email or web address] Information not available 05/21/2023 Because Of Any Health Problems, Do You Need The Help Of Another Person With Your Personal Care Needs Such As Eating, Bathing, Dressing, Or Getting Around The House? No Information not available 05/21/2023 Can You Handle Your Own Money Without Help? Yes [email or web address] Information not available 05/21/2023 Are You Having Difficulties Driving Your Car? No [email or web address] Information no t available 05/21/2023 Do You Always Fasten Your Seat Belt When You Are In A Car? Yes- Usually [email or web address] Information not available 05/21/2023 How Often During The Past Four Weeks Have You Been Bothered By Any Of The Following Problems? Falling Or Dizzy When Standing Up? Never [email or web address] Information not available 05/21/2023 Sexual Problems? Never [email or web address] Informat ion not available 05/21/2023 Trouble Eating Well? Sometimes [email or web address] Information not available 05/21/2023 Teeth Or Denture Problems? Sometimes [email or web address] Information not available 05/21/2023 Problems Using The Telephone? Never [email or web address] Information not available 05/21/2023 Tiredness Or Fatigue? Sometimes [email or web address] Information not available 05/21/2023 Have You Had 2 Or More Falls Or Sustained An Injury With A Fall In The Last Year? No Information no t available 05/21/2023 Do You Have Difficulty With Walking Or Balance? No [email or web address] Information not available 05/21/2023 Do You Currently Use A Hearing Device? No [email or web address] Information not available 05/21/2023 Do You Currently Have Any Trouble With Your Vision? Yes [email or web address] Information no t available 05/21/2023 Do You Exercise For About 20 Minutes Three Or More Days A Week? Yes- Most Of The Time [email or web address] Information not available 05/21/2023 Are There Any Safety Concerns In Your Home (see Attached CDC Pamphlet)? No [email or web address] Information not available 05/21/2023 How Often Do You Have Trouble Taking Medicines The Way You Have Been Told To Take Them? I Always Take Them As Prescribed [email or web address] Information not available 05/21/2023 How Confident Are You That You Can Control And Manage Most Of Your Health Problems? Very Confident [email or web address] Information not available 05/21/2023 Do You Currently Have Any Difficulty With Your Hearing? No [email or web address] Information not available 05/21/2023 Date Of Most Recent SBINS 05/21/2023 [email or web address] Information not available 05/21/2023 What Was The Date Of Your Most Recent Tobacco Screening? 09/01/2023 Information not available 09/01/2023 Has Tobacco Cessation Counseling Been Provided? Yes Information not available 09/01/2023 On What Date Was Tobacco Cessation Counseling Provided? 09/01/2023 Information not available 09/01/2023 Do You Or Have You Ever Used Any Other Forms Of Tobacco Or Nicotine? No [email or web address] Information not available 05/21/2023 Sex: Female Functional Status None recorded. Mental Status None recorded. Family History Relationship Description Onset Age of this Age Resolved Age Notes Sister Family history of Hypertension Sister Family history of br east cancer Brother Family history of di abetes mellitus type 1 Notes:*Problem: updated 2021 Mother: at 79 - CHF, COPD, S/P pacemaker due to rhythm abnormalities. Father: at 94y/o from DVT, HTN, h/o blood clots- was on warfarin but then got a brain bleed, ended up with a Ivory filter. Brother - Agent orange exposure SISTER x 2 - Hypercoagulable state x 1, one with recent TIA Kids are healthy Medical History No medical history recorded. Gynecological HistoryNo gynecological history recorded. Obstetrics History GPAL:G 0 P 0 0 0 0 Immunizations Vaccine Type Date Status Provider Name and Address Organization Details Recorded Time Td (adult), 2 Lf tetanus toxoid, preservative free, adsorbed 11/03/2018 completed Not Available [facility] 01/15/2023 04:53:39 Tdap 04/12/2007 completed Not Available [facility] 04:53:39 zoster live 06/16/2012 completed Not Available [facility] 01/15/2023 04:53:40 Pneumococcal conjugate PCV 13 09/17/2015 completed Not Available [facility] 01/15/2023 04:53:40 Influenza, high-dose, trivalent, PF 11/26/2017 completed Not Available [facility] 01/15/2023 04:53:41 Td(adult) unspecified formulation 09/30/1992 completed Not Available [facility] 01/15/2023 04:53:41 Influenza, split virus, trivalent, preservative 11/28/2015 completed Not Available [facility] 01/15/2023 04:53:41 Influenza, split virus, trivalent, preservative 01/04/2015 completed Not Available [facility] 01/15/2023 04:53:41 Influenza, split virus, quadrivalent, PF 12/21/2018 completed Not Available [facility] 01/15/2023 04:53:41 zoster recombinant 08/30/2018 completed Not Available [facility] 01/15/2023 04:53:42 zoster recombinant 01/26/2018 completed Not Available [facility] 01/15/2023 04:53:42 Influenza, high-dose, quadrivalent, PF 12/04/2020 completed Not Available [facility] 01/15/2023 04:53:43 Influenza, high-dose, quadrivalent, PF 12/11/2019 completed Not Available [facility] 01/15/2023 04:53:43 Influenza, high-dose, quadrivalent, PF 12/29/2021 completed Not Available [facility] 01/15/2023 04:53:43 COVID-19, mRNA, LNP-S, PF, 100 mcg/0.5mL dose or 50 mcg/0.25mL dose 07/09/2021 completed Not Available [facility] 01/15/2023 04:53:43 COVID-19 vaccine, vector-nr, rS-Ad26, PF, 0.5 mL 05/02/2020 completed Not Available [facility] 01/15/2023 04:53:44 SARS-COV-2 (COVID-19) vaccine, UNSPECIFIED 05/31/2020 completed Not Available [facility] 01/15/2023 04:53:44 SARS-COV-2 (COVID-19) vaccine, UNSPECIFIED 01/03/2021 completed Not Available [facility] 01/15/2023 04:53:44 pneumococcal polysaccharide PPV23 07/05/2014 completed Not Available [facility] 2022 04:53:45 Hep B, unspecified formulation 04/14/1993 completed Not Available [facility] 01/15/2023 04:53:45 Hep B, unspecified formulation 09/30/1992 completed Not Available [facility] 01/15/2023 04:53:46 Hep B, unspecified formulation 10/31/1992 completed Not Available [facility] 01/15/2023 04:53:46 influenza, unspecified formulation 12/11/2009 completed Not Available [facility] 01/15/2023 04:53:47 influenza, unspecified formulation 12/13/2012 completed Not Available [facility] 01/15/2023 04:53:47 influenza, unspecified formulation 12/18/2008 completed Not Available [facility] 01/15/2023 04:53:47 influenza, unspecified formulation 12/19/2010 completed Not Available [facility] 01/15/2023 04:53:47 influenza, unspecified formulation 12/30/2006 completed Not Available [facility] 01/15/2023 04:53:48 influenza, unspecified formulation 01/09/2014 completed Not Available [facility] 01/15/2023 04:53:48 influenza, unspecified formulation 01/26/2008 completed Not Available [facility] 01/15/2023 04:53:48 influenza, unspecified formulation 02/16/2012 completed Not Available [facility] 01/15/2023 04:53:48 Influenza, high-dose, quadrivalent, PF 12/17/2022 completed Not Available [facility] 03/19/2023 05:33:03 COVID-19, mRNA, LNP-S, PF, herminio-sucrose, 30 mcg/0.3 mL 12/28/2022 completed Not Available [facility] 03/19/2023 05:33:03 Past Encounters Encounter ID Performer Location Encounter Start Date Encounter Closed Date Diagnosis/Indication Diagnosis SNOMED-CT Code [id number] [address] [id number] 09/01/2023 10:23:16 09/01/2023 13:28:10 Vertigo [id number] Impacted c erumen of bilateral ears [id number] Health Concerns Section Related Observation LastModified by Organization Detai ls LastModified Time None Recorded Concern Status LastModified by Organization Details LastModified Time None Recorded Payers Encounter Date Sequence Insurance Name Policy Number Policy Lema Covered Member ID Lema Member ID Guarantor Name 09/01/2023 1 [id number]/ [place]ANTAGE - [place]PO) [id number] Luna Mott [id number] Luna E Tiera Notes Date Note Type Note Provider Name and Address Organization Details Recorded Time 09/01/2023 text/html HPI Notes: Luna is a 73-year-old female who presents with onset of vertigo. On Wednesday when she awoke she had some vertigo when she rolled to the right. She has had this before. She did the Jd maneuver at home which seemed to help. Again it returned on Wednesday when she woke but better through the day. She again did the Jd maneuver before bed and this morning upon waking again had dizziness returned. She tried the Jd maneuver without improvement. She does note that this dizzy vertigo episode will happen if she turns her head to the right. It is fatigable with rest. Not associated with hearing changes. She has not had recent ear infection. There is been no drainage from the ear. She has had this previously and has seen physical therapy for it. She thinks she has had meclizine in the past, does remember getting a medication but it has been sometime. Does not recall the name of it. JESSICA INGRAM PA-C [address], [place], [address], [facility]. 09/01/2023 13:55:07 OBGyn Episode No OBEpisode recorded.
--- OUTSIDE RECORDS SUMMARY | 2023-10-13 11:49 | XMS_ITS | Encounter Summary ---
Author Organization [facility] Address [address] [place] [address] Care Team Providers Care Scrap Preparer Name Role Phone Lolly Oliveira MD Primary Care Provider [phone] Encounter Details Date Type Department Care Team (Late st Contact Info) Description 02/20/2020 Lab Requisition [facility] Pathology & Laboratory Medicine - [address] [id number] Outr Resulting Lab, Provider Social History Tobacco [...] Procedure Name Priority Date/Time Associated Diagnosis Comments DO NOT ORDER STANDALONE - [facility]OAD COVID TEST Today 02/19/2020 16:30 EST COVID-19 TESTING Routine 02/19/2020 16:3 0 EST documented in this encounter Results * DO NOT ORDER STANDALONE - [facility]OAD COVID TEST (02/19/2020 16:30 EST) COVID-19 rt-PCR Result NEGATIVE Negative 02/22/2020 21:54 EST [facility] Comment: 2019-novel Coronavirus (2019-nCoV) not detected by the qRT-PCR assay. Consider testing for other respiratory viruses or re-collecting for 2019-nCoV testing. Note: Optimum timing for peak viral levels during infections caused by 2019-nCoV have not been determined. Collection of multiple specimens from the same patient may be necessary to detect the virus. Limitations Positive results are indicative of active infection with SARS-CoV-2 but do not rule out bacterial infection or co-infection with other viruses. The agent detected may not be the definite cause of disease. In addition, detection of viral RNA may not indicate the presence of infectious virus or that SARS-CoV-2 is the causative agent for clinical symptoms. Negative results do not preclude SARS-CoV-2 infection and should not be used as the sole basis for patient management decisions. Negative results must be combined with clinical observations, patient history, and epidemiological information. False negative results may also occur if amplification inhibitors are present in the specimen or if inadequate numbers of organisms are present in the specimen. Optimum specimen types and timing for peak viral levels during infections caused by SARS-CoV-2 have not been fully determined. Collection of multiple specimens (types and time points) from the same patient may be necessary to detect the virus. The test was validated for use with upper respiratory specimens obtained via nasopharyngeal or oropharyngeal swabs in VTM, UTM, M4, M5, M6, saline, and MTM media. The performance of this test has not been established for other specimens. Specimens collected using other FDA recommended Specimen Collection Materials listed in the FDA COVID-19 [employer] communication (June 01, 2019) are processed with the caveat that they were not all validated for use with this test and the result must be interpreted in this context. Furthermore, a false negative results may occur if a specimen is improperly collected, transported or handled. If the virus mutates in the RT-PCR target region, SARS-CoV-2 may not be detected or may be detected less predictably. Inhibitors or other types of interference may produce a false negative result. An interference study evaluating the effect of common cold medications was not performed. This test is not FDA-cleared but its performance characteristics were established by our CLIA-certified, CAP-accredited, high complexity laboratory in accordance with CLIA regulations, College [employer] (CAP) guidelines (May 25, 2019), and FDA guidance (May 06, 2019). This test is only for use under the Food and Drug Administration's Emergency Use Authorization. Swab ENTIRE NASOPHARYNX / Unknown 02/19/2020 16:30 EST 02/20/2020 16:09 EST Provider Outr Resulting Lab MICROBIOLOGY - GENERAL ORDERABLES [facility] [place], [place] * COVID-19 TESTING (02/19/2020 16:30 EST) COVID-19 rt-PCR Result NEGATIVE Negative 02/22/2020 23:41 EST [facility] Comment: 2019-novel Coronavirus (2019-nCoV) not detected by the qRT-PCR assay. Consider testing for other respiratory viruses or re-collecting for 2019-nCoV testing. Note: Optimum timing for peak viral levels during infections caused by 2019-nCoV have not been determined. Collection of multiple specimens from the same patient may be necessary to detect the virus. Limitations Positive results are indicative of active infection with SARS-CoV-2 but do not rule out bacterial infection or co-infection with other viruses. The agent detected may not be the definite cause of disease. In addition, detection of viral RNA may not indicate the presence of infectious virus or that SARS-CoV-2 is the causative agent for clinical symptoms. Negative results do not preclude SARS-CoV-2 infection and should not be used as the sole basis for patient management decisions. Negative results must be combined with clinical observations, patient history, and epidemiological information. False negative results may also occur if amplification inhibitors are present in the specimen or if inadequate numbers of organisms are present in the specimen. Optimum specimen types and timing for peak viral levels during infections caused by SARS-CoV-2 have not been fully determined. Collection of multiple specimens (types and time points) from the same patient may be necessary to detect the virus. The test was validated for use with upper respiratory specimens obtained via nasopharyngeal or oropharyngeal swabs in VTM, UTM, M4, M5, M6, saline, and MTM media. The performance of this test has not been established for other specimens. Specimens collected using other FDA recommended Specimen Collection Materials listed in the FDA COVID-19 [employer] communication (June 01, 2019) are processed with the caveat that they were not all validated for use with this test and the result must be interpreted in this context. Furthermore, a false negative results may occur if a specimen is improperly collected, transported or handled. If the virus mutates in the RT-PCR target region, SARS-CoV-2 may not be detected or may be detected less predictably. Inhibitors or other types of interference may produce a false negative result. An interference study evaluating the effect of common cold medications was not performed. This test is not FDA-cleared but its performance characteristics were established by our CLIA-certified, CAP-accredited, high complexity laboratory in accordance with CLIA regulations, College of [employer]ologists (CAP) guidelines (May 25, 2019), and FDA guidance (May 06, 2019). This test is only for use under the Food and Drug Administration's Emergency Use Authorization. Performing Lab [facility] 02/22/2020 23:41 EST [facility] Swab 02/19/2020 16:3 0 EST 02/20/2020 16:09 EST Provider Outr Resulting Lab MICROBIOLOGY - GENERAL ORDERABLES [facility] [address] [place] [address] [facility] [place], [place] documented in this encounter Visit Diagnoses Not on filedocumented in this encounter Care Teams Scrap Preparer Relationship Specialty Start Date End Date Lolly Oliveira MD [address] [place] [address] PCP - General 11/13/08 documented as of this encounter
--- OUTSIDE RECORDS SUMMARY | 2023-10-13 11:49 | XMS_ITS | Encounter Summary ---
Author Organization [facility] Address [address] [place] [address] Care Team Providers Care Dry Chain Worker Name Role Phone Lolly Oliveira MD Primary Care Provider [phone] Encounter Details Date Type Department Care Team (Late st Contact Info) Description 04/25/2009 Orders Only [facility] Services - [facility] [place] [address] [place] [address], [place] [id number] Lolly Oliveira MD [address] [place], [place] [id number] Social History Tobacco Use Types Packs/Day Years Used Date Smoking Tobacco: Never Assessed Sex and Gender Information Value Date Recorded Sex Assigned at Not on file Gender Identity Not on file Sexual Orientation Not on file documented as of this encounter Plan of Treatment Not on file documented as of this encounter Procedures Procedure Name Priority Date/Time Associated Diagnosis Comments CYTOPATHOLOGY Routine 04/25/2009 0:00 EST documented in this encounter Results * CYTOPATHOLOGY (04/25/2009 0:00 EST) Pathology Report: CYTOPATHOLOGY REPORT ? Reports generated via electronic interface contain original data; ? however they are lacking the format of the original report. ? Caution should be taken when reading/interpreti ng unformatted reports. ? Name: ? JING ALVARENGA ? Accession #: ? [id number] ? : ? 1950 (Age: 58) ??F ?Collect Date: ? 04/25/2009 ? Location: ? [facility] ? Receive Date: ? 04/26/2009 ? Provider: ?LOLLY OLIVEIRA MD ? Copy to: ? Specimen/Source: ?Pap Test, Cervix/Endocervix, ThinPrep Imaging System ? with manual evaluation ? Last Menstrual Period: ? years ago ? Treatment History: ? Cone biopsy: years ago ? Endometrial biopsy: /02/09-1,Dx superficial strips of inactive endometrial ? lining.2,scant stroma, insuff for eval. ? SPECIMEN ADEQUACY ? Satisfactory for Evaluation ? - assessment of transformation zone component not applicable ( e.g. atrophy, ? vaginal sample, hysterectomy) ? GENERAL CATEGORIZATION ? Negative for Intraepithelial Lesion or Malignancy ? Document reviewed and electronically signed by: ? [place], [place](ASCP) ? Report Date: ??04/29/2009 10:38 ? End of Report ? TOVA BLANCO 04/25/2009 04/26/2009 Lolly Oliveira MD PATHOLOGY ORDERABLES [facility] SUO[facility] [address] [place] [address] documented in this encounter Visit Diagnoses Not on filedocumented in this encounter Care Teams Dry Chain Worker Relationship Specialty Start Date End Date Lolly Oliveira MD [address] [place] [address] PCP - General 11/13/08 documented as of this encounter
--- OUTSIDE RECORDS SUMMARY | 2023-10-13 11:49 | XMS_ITS | Encounter Summary ---
Author Organization [facility] Address [address] [place] [address] Care Team Providers Care Retina Subspecialist Name Role Phone Lolly Oliveira MD Primary Care Provider [phone] Encounter Details Date Type Department Care Team (Late st Contact Info) Description 03/21/2019 Lab Requisition [facility] Pathology & Laboratory Medicine - [address] [address] Unknown, Provider, Social History Tobacco Use Types Packs/Day Years Used Date Smoking Tobacco: Never Assessed Sex and Gender Information Value Date Recorded Sex Assigned at Not on file Gender Identity Not on file Sexual Orientation Not on file documented as of this encounter Plan of Treatment Not on file documented as of this encounter Procedures Procedure Name Priority Date/Time Associated Diagnosis Comments VITAMIN B12 Routine 03/16/2019 9:25 EST documented in this encounter Results * VITAMIN B12 (03/16/2019 9:25 EST) Vitamin B12 443 211 - 911 pg/mL 03/22/2019 11:52 EST [facility] Blood VENOUS BLOOD / Unknown 03/16/2019 9:25 EST 03/21/2019 21:35 EST Provider Unknown CHEMISTRY & BLOOD GA S ORDERABLES [facility] [address] [place] [address] documented in this encounter Visit Diagnoses Not on filedocumented in this encounter Care Teams Retina Subspecialist Relationship Specialty Start Date End Date Lolly Oliveira MD [address] [place] [id number] PCP - General 11/13/08 documented as of this encounter
--- OUTSIDE RECORDS SUMMARY | 2023-10-13 11:49 | XMS_ITS | Data Portability ---
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 Or For Different Reasons Than Its Intended Purpose? Never hxfffrvo75 Information no t available 05/21/2023 How Often In The Past Year Have You Used Other Drugs (for Example, Heroin, Cocaine, Meth, Salvia, Inhalants)? Never [email or web address] Information not available 05/21/2023 Have You Ever Used IV Drugs? No [email or web address] Information not available 05/21/2023 What Matters Most To You? Staying Healthy, Keeping Active. Getting Exercise And Losing Some Weight lntzbqyw63 Information not available 05/21/2023 During The Past Four Weeks Has Your Physical And Emotional Health Limited Your Social Activities With Family And Friends, Neighbors, Or Groups? Not At All [email or web address] Information not available 05/21/2023 During The Past Four Weeks, Was Someone Available To Help You If You Needed And Wanted Help? (For Example, If You [place] Very Nervous, Lonely, Or Blue; Got Sick And Had To Stay In Bed; Needed Someone To Talk To; Needed Help With Daily Chores; Or Needed Help Just Taking Care Of Yourself.) No- Not At All [email or web address] Information n ot available 05/21/2023 During The Past Four Weeks, What Was The Hardest Physical Activity You Could Do For At Least 2 Minutes? Moderate [email or web address] Information not available 05/21/2023 Can You Get To Places Out Of Walking Distance Without Help? (For Example, Can You Travel Alone On Buses Or Taxis, Or Drive Your Own Car?) Yes [email or web address] Information not available 05/21/2023 Can You Go Shopping For Groceries Or Clothes Without Someone? s Help? Yes atthwkge04 Information not available 05/21/2023 Can You Prepare Your Own Meals? Yes gskczydr26 Information not available 05/21/2023 Can You Do Your Housework Without Help? Yes dadxefxq72 Information not available 05/21/2023 Because Of Any Health Problems, Do You Need The Help Of Another Person With Your Personal Care Needs Such As Eating, Bathing, Dressing, Or Getting Around The House? No Information not available 05/21/2023 Can You Handle Your Own Money Without Help? Yes Information not available 05/21/2023 Are You Having Difficulties Driving Your Car? No [email or web address] Information no t available 05/21/2023 Do You Always Fasten Your Seat Belt When You Are In A Car? Yes- Usually [email or web address] Information not available 05/21/2023 How Often During The Past Four Weeks Have You Been Bothered By Any Of The Following Problems? Falling Or Dizzy When Standing Up? Never [email or web address] Information not available 05/21/2023 Sexual Problems? Never omtwjilm38 Informat ion not available 05/21/2023 Trouble Eating Well? Sometimes Information not available 05/21/2023 Teeth Or Denture Problems? Sometimes vmbupzeq91 Information not available 05/21/2023 Problems Using The Telephone? Never rhidzvfw30 Information not available 05/21/2023 Tiredness Or Fatigue? Sometimes sygtsjny10 Information not available 05/21/2023 Have You Had 2 Or More Falls Or Sustained An Injury With A Fall In The Last Year? No [email or web address] Information no t available 05/21/2023 Do You Have Difficulty With Walking Or Balance? No hgwzfqio64 Information not available 05/21/2023 Do You Currently Use A Hearing Device? No [email or web address] Information not available 05/21/2023 Do You Currently Have Any Trouble With Your Vision? Yes [email or web address] Information no t available 05/21/2023 Do You Exercise For About 20 Minutes Three Or More Days A Week? Yes- Most Of The Time Information not available 05/21/2023 Are There Any Safety Concerns In Your Home (see Attached CDC Pamphlet)? No [email or web address] Information not available 05/21/2023 How Often Do You Have Trouble Taking Medicines The Way You Have Been Told To Take Them? I Always Take Them As Prescribed iyerjxky96 Information not available 05/21/2023 How Confident Are You That You Can Control And Manage Most Of Your Health Problems? Very Confident [email or web address] Information not available 05/21/2023 Do You Currently Have Any Difficulty With Your Hearing? No [email or web address] Information not available 05/21/2023 Date Of Most Recent SBINS 05/21/2023 [email or web address] Information not available 05/21/2023 What Was The Date Of Your Most Recent Tobacco Screening? 09/01/2023 Information not available 09/01/2023 Has Tobacco Cessation Counseling Been Provided? Yes Information not available 09/01/2023 On What Date Was Tobacco Cessation Counseling Provided? 09/01/2023 Information not available 09/01/2023 Do You Or Have You Ever Used Any Other Forms Of Tobacco Or Nicotine? No [email or web address] Information not available 05/21/2023 Sex: Female Functional [...] preservative free, adsorbed 11/03/2018 completed Not Available [facility] 01/15/2023 04:53:39 Tdap 04/12/2007 completed Not Available [facility] 04:53:39 zoster live 06/16/2012 completed Not Available [facility] 01/15/2023 04:53:40 Pneumococcal conjugate PCV 13 09/17/2015 completed Not Available [facility] 01/15/2023 04:53:40 Influenza, high-dose, trivalent, PF 11/26/2017 completed Not Available [facility] 01/15/2023 04:53:41 Td(adult) unspecified formulation 09/30/1992 completed Not Available [facility] 01/15/2023 04:53:41 Influenza, split virus, trivalent, preservative 11/28/2015 completed Not Available [facility] 01/15/2023 04:53:41 Influenza, split virus, trivalent, preservative 01/04/2015 completed Not Available [facility] 01/15/2023 04:53:41 Influenza, split virus, quadrivalent, PF 12/21/2018 completed Not Available [facility] 01/15/2023 04:53:41 zoster recombinant 08/30/2018 completed Not Available [facility] 01/15/2023 04:53:42 zoster recombinant 01/26/2018 completed Not Available [facility] 01/15/2023 04:53:42 Influenza, high-dose, quadrivalent, PF 12/04/2020 completed Not Available [facility] 01/15/2023 04:53:43 Influenza, high-dose, quadrivalent, PF 12/11/2019 completed Not Available [facility] 01/15/2023 04:53:43 Influenza, high-dose, quadrivalent, PF 12/29/2021 completed Not Available [facility] 01/15/2023 04:53:43 COVID-19, mRNA, LNP-S, PF, 100 mcg/0.5mL dose or 50 mcg/0.25mL dose 07/09/2021 completed Not Available [facility] 01/15/2023 04:53:43 COVID-19 vaccine, vector-nr, rS-Ad26, PF, 0.5 mL 05/02/2020 completed Not Available [facility] 01/15/2023 04:53:44 SARS-COV-2 (COVID-19) vaccine, UNSPECIFIED 05/31/2020 completed Not Available [facility] 01/15/2023 04:53:44 SARS-COV-2 (COVID-19) vaccine, UNSPECIFIED 01/03/2021 completed Not Available [facility] 01/15/2023 04:53:44 pneumococcal polysaccharide PPV23 07/05/2014 completed Not Available [facility] 2022 04:53:45 Hep B, unspecified formulation 04/14/1993 completed Not Available [facility] 01/15/2023 04:53:45 Hep B, unspecified formulation 09/30/1992 completed Not Available [facility] 01/15/2023 04:53:46 Hep B, unspecified formulation 10/31/1992 completed Not Available [facility] 01/15/2023 04:53:46 influenza, unspecified formulation 12/11/2009 completed Not Available [facility] 01/15/2023 04:53:47 influenza, unspecified formulation 12/13/2012 completed Not Available [facility] 01/15/2023 04:53:47 influenza, unspecified formulation 12/18/2008 completed Not Available [facility] 01/15/2023 04:53:47 influenza, unspecified formulation 12/19/2010 completed Not Available [facility] 01/15/2023 04:53:47 influenza, unspecified formulation 12/30/2006 completed Not Available [facility] 01/15/2023 04:53:48 influenza, unspecified formulation 01/09/2014 completed Not Available [facility] 01/15/2023 04:53:48 influenza, unspecified formulation 01/26/2008 completed Not Available [facility] 01/15/2023 04:53:48 influenza, unspecified formulation 02/16/2012 completed Not Available [facility] 01/15/2023 04:53:48 Influenza, high-dose, quadrivalent, PF 12/17/2022 completed Not Available [facility] 03/19/2023 05:33:03 COVID-19, mRNA, LNP-S, PF, herminio-sucrose, 30 mcg/0.3 mL 12/28/2022 completed Not Available [facility] 03/19/2023 05:33:03 Past Encounters Encounter ID Performer Location Encounter Start Date Encounter Closed Date Diagnosis/Indication Diagnosis SNOMED-CT Code [id number] JU CORTEZ MD [address] [address] 05/21/2023 10:03:54 05/21/2023 11:37:49 Onychomycosis [id number] Asthma [id number] Cardiomyopathy [id number] Disorder of hip joint 42 1252082 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 Hyperlipidemia 69511022 Vulval and /or perineal noninflammatory disorders [id number] Adult [facility] th examination [id number] [address] [place] [address] 09/01/2023 10:23:16 09/01/2023 13:28:10 Vertigo 191071102 Impacted c erumen of bilateral ears [id number] 8 Health Concerns Section Related Observation LastModified by Organization Detai ls LastModified Time None Recorded Concern Status LastModified by Organization Details LastModified Time None Recorded Advance Directives Directive None Recorded Payers Encounter Date Sequence Insurance Name Policy Number Policy Lema Covered Member ID Lema Member ID Guarantor Name 05/21/2023 1 [id number]ANT[place] - [place]PO) [id number] Luna Barber Mott [id number] Luna Barber Mott 09/01/2023 1 [id number] - [place]) [id number] Luna Mott [id number] Luna Barber Tiera Notes Date Note Type Note Provider Name and Address Organization Details Recorded Time 05/21/2023 text/html HPI Notes: Thais here today for an annual wellness exam JU CORTEZ MD [address], [place], [address], [facility]. 05/24/2023 18:32:35 09/01/2023 text/html HPI Notes: Luna is a [...] Does not recall the name of it. [address], [place], [address], [facility]. 09/01/2023 13:55:07 OBGyn Episode No OBEpisode recorded.
--- OUTSIDE RECORDS SUMMARY | 2023-10-13 11:49 | XMS_ITS | Referral Summary ---
Author Organization [facility] Address [address] [place] [address] Care Team Providers Care Charity Fundraiser Name Role Phone Lolly Oliveira MD Primary Care Provider [phone] Social History Tobacco Use Types Packs/Day Years Used Date Smoking Tobacco: Never Assessed Sex and Gender Information Value Date Recorded Sex Assigned at Not on file Gender Identity Not on file Sexual Orientation Not on file Plan of Treatment Not on file Care Teams Charity Fundraiser Relationship Specialty Start Date End Date Lolly Oliveira MD [address] [place] [address] PCP - General 11/13/08
--- OUTSIDE RECORDS SUMMARY | 2023-10-13 11:49 | XMS_ITS | Encounter Summary ---
Author Organization [facility] Address [address] [place] [address] Care Team Providers Care Housecleaner Floor Name Role Phone Lolly Oliveira MD Primary Care Provider [phone] Encounter Details Date Type Department Care Team (Late st Contact Info) Description 04/01/2005 Results Only [facility] - [place] conversion [address] [place] [address] Blair Dukes MD [address] [place] [address] [id number] Social History Tobacco Use Types Packs/Day Years Used Date Smoking Tobacco: Never Assessed Sex and Gender Information Value Date Recorded Sex Assigned at Not on file Gender Identity Not on file Sexual Orientation Not on file documented as of this encounter Plan of Treatment Not on file documented as of this encounter Procedures Procedure Name Priority Date/Time Associated Diagnosis Comments SURGICAL PATHOLOGY Routine 04/01/2005 0:00 EST documented in this encounter Results * SURGICAL PATHOLOGY (04/01/2005 0:00 EST) Pathology Report: SURGICAL PATHOLOGY REPORT Reports generated via electronic interface contain original data; however they are lacking the format of the original report. Caution should be taken when reading/interpreti ng unformatted reports. Name: ? JING ALVARENGA ? Accession #: ? [id number] ? : ? 1950 (Age: 54) ??F ? Collect Date: ? 04/01/2005 ? Location: ? [facility] ? Receive Date: ? 04/02/2005 ? Provider: BLAIR DUKES MD Copy to: LOLLY OLIVEIRA MD ? Final Pathologic Diagnosis: A. ?Terminal ileum, biopsy: 1. ?Prominent lymphoid follicle; otherwise no pathologic features. B. ?Colon, transverse, biopsy: 1. ?Hyperplastic polyp. Document reviewed and electronically signed by: MELISSA MARTINEZ MD Report ??Date: 04/03/2005 15:50 By the signature above, the attending physician certifies that he/she has personally conducted a gross and/or microscopic examination of the described specimens and rendered or confirmed the above diagnosis. Specimen(s) Received: A. ?Terminal ileum bx (#1) B. ?Transverse colon polypectomy (#2) Clinical History: ? Screening Gross Description: ? Received in Hollande' s fixative labelled Lyle and #1 ??terminal ileum bx is a single 0.3 x 0.2 x 0.2 cm tissue, submitted intact as (A). Received in Hollande' s fixative labelled Lyle and #2 ??transverse colon bx is a single 0.2 x 0.2 x 0.2 cm tissue, submitted intact as (B). ??(Dr. Lechuga)/[facility] End of Report [facility] 04/01/2005 04/02/2005 15: 24 EST Blair Dukes MD PATHOLOGY ORDERABLES [facility] [address] [place] [address] documented in this encounter Visit Diagnoses Not on filedocumented in this encounter Care Teams Housecleaner Floor Relationship Specialty Start Date End Date Lolly Oliveira MD [address] [place] [address] PCP - General 11/13/08 documented as of this encounter
--- OUTSIDE RECORDS SUMMARY | 2023-10-13 11:49 | XMS_ITS | Encounter Summary ---
Author Organization [facility] Address [address] [place] [address] Care Team Providers Care Administrative Representative Name Role Phone Lolly Oliveira MD Primary Care Provider [phone] Encounter Details Date Type Department Care Team (Late st Contact Info) Description 03/06/2003 Results Only [facility] - [place] conversion [address] [place] [address] Lolly Oliveira MD [address] [place], [place] [id number] Social History Tobacco Use Types Packs/Day Years Used Date Smoking Tobacco: Never Assessed Sex and Gender Information Value Date Recorded Sex Assigned at Not on file Gender Identity Not on file Sexual Orientation Not on file documented as of this encounter Plan of Treatment Not on file documented as of this encounter Procedures Procedure Name Priority Date/Time Associated Diagnosis Comments CYTOPATHOLOGY Routine 03/06/2003 0:00 EST documented in this encounter Results * CYTOPATHOLOGY (03/06/2003 0:00 EST) Pathology Report: CYTOPATHOLOGY REPORT Reports [...] Pap Test, Cervix/Endocervix Last Menstrual Period: ? Many Years Ago Treatment History: ? Cone biopsy ? SPECIMEN ADEQUACY ? Satisfactory for Evaluation - transformation zone component absent GENERAL CATEGORIZATION ? Negative for Intraepithelial Lesion or Malignancy ? Document reviewed and electronically signed by: ? BERHANE Faulkner(ASCP) ? Report Date: ??03/13/2003 15:57 End of Report [facility] 03/06/2003 03/09/2003 Lolly Oliveira MD PATHOLOGY ORDERABLES Performing Organization Address City/State/[facility] Co de Phone Number [facility] [address] [place] [address] documented in this encounter Visit Diagnoses Not on filedocumented in this encounter Care Teams Administrative Representative Relationship Specialty Start Date End Date Lolly Oliveira MD [address] [place] [address] PCP - General 11/13/08 documented as of this encounter
--- OUTSIDE RECORDS SUMMARY | 2023-10-13 11:49 | XMS_ITS | Encounter Summary ---
Author Organization [facility] Address [address] [place] [address] Care Team Providers Care Office Technician Name Role Phone Lolly Oliveira MD Primary Care Provider Encounter Details Date Type Department Care Team (Late st Contact Info) Description 05/27/2021 Lab Requisition [facility] Pathology & Laboratory Medicine - [address] [address] Iman Moran, DO [address] [place], [place] [id number] Encounter for other general examination Social History Tobacco Use Types Packs/Day Years Used Date Smoking Tobacco: Never Assessed Sex and Gender Information Value Date Recorded Sex Assigned at Not on file Gender Identity Not on file Sexual Orientation Not on file documented as of this encounter Plan of Treatment Not on file documented as of this encounter Procedures Procedure Name Priority Date/Time Associated Diagnosis Comments SURGICAL PATHOLOGY Today 05/27/2021 11 :23 EDT Encounter for other general examination documented in this encounter Results * SURGICAL PATHOLOGY (05/27/2021 11:23 EDT) Note to Patient The following pathology results have been interpreted by your pathologist and may be available to you before your health provider has had the opportunity to review them. Please allow time for your provider to receive these results and explore management options, if applicable. 05/30/2021 13:31 EDT [facility] Final Diagnosis A. COLON, POLYP AT 90 CM, BIOPSY/POLYPECTOM Y: - Tubular adenoma. 05/30/2021 13:31 [facility] Attestation By the signature below, the attending physician certifies that they have 1) personally conducted a gross and/or microscopic examination of the described specimen(s), and/or personally interpreted the results of laboratory testing of the described specimen(s), and 2) personally rendered or confirmed the above diagnosis. 05/30/2021 13:31 [facility] at 1331 Clinical History Severe diverticula and polypectomy x1 05/30/2021 13:31 [facility] Gross Description A. Received in formalin labelled with proper patient identification (initials J, K) and colon polyp x1 at 90 cm is a light pineda polypoid tissue measuring 0.2 x 0.2 x 0.2 cm. Submitted intact in A1. MICKEY CARLOS(ASCP) 05/27/2021 19:11 05/30/2021 13:31 [facility] Performing Lab [facility] 05/30/2021 13:31 [facility] Scanned Images 05/30/2021 13:31 [facility] Tissue ENTIRE COLON / Unknown 05/27/2021 11:23 EDT 05/27/2021 16:33 EDT Iman Moran DO PATHOLOGY ORDERABLES [facility] [address] [place] [address] documented in this encounter Visit Diagnoses Diagnosis Encounter for other general examination documented in this encounter Care Teams Office Technician Relationship Specialty Start Date End Date Lolly Oliveira MD [address] [place] [address] PCP - General 11/13/08 documented as of this encounter
--- OUTSIDE RECORDS SUMMARY | 2023-10-13 11:50 | XMS_ITS | Encounter Summary ---
Author Organization [facility] [place] [address] Care Team Providers Care Canal Equipment Maintenance Supervisor Name Role Phone Lolly Oliveira MD Primary Care Provider [phone] Reason for Visit * Reason Onset Date Comments Other 07/24/2022 Implanted Cardia c Device Teaching/Education Encounter Details Date Type Department Care Team (Late st Contact Info) Description 07/24/2022 Notes Only Cardiology at [address] [id number] Letha Arroyo Other (Implanted Cardiac Device Teaching/Education) Social History Tobacco Use Types Packs/Day Years Used Date Smoking Tobacco: Never Alcohol Use Standard Drinks/Week Comments Not Currently 0 (1 standard drink = 0.6 oz pur e alcohol) [facility] Inpatient Questions Answer Date Recorded Does Anyone Try to Keep You From Having Contact with Others or Doing Things Outside Your Home? no 07/23/2022 Feels Threatened by Someone no 07/06 Feels Unsafe at Home or Work/School no 07/23/2022 Physical Signs of Abuse Present no 07/23/2022 Sex and Gender Information Value Date Recorded Sex Assigned at Not on file Gender Identity Not on file Sexual Orientation Not on file documented as of this encounter Progress Notes * Letha Arroyo LNA - 07/24/2022 4:05 PM EDT Cardiac Electrophysiology Device Clinic - Post Implant Teaching Note Luna Mott : 1950 AGE: 71 y.o. Education: Reviewed the following topics with patient and 2 daughters. - Implant ID card - Implant manual - Electromagnetic Compatibility (EMC) - Remote monitoring Answered all questions and provided implant folder containing written materials of the above topics. Patient demonstrated understanding and was instructed to call the Cardiac Device Clinic at [phone] with any questions. Plan: Post op check: Being sched w/[facility] 91 day check: Will be sched w/[facility] Remote monitor: Latitude home monitor provided to patient today. Monitor set up demonstrated. Patient instructed to connect monitor and send manual transmission when they arrive home. SHARIF Del Angel 07/24/22 documented in this encounter Plan of Treatment Upcoming Encounters Date Type Department Care Team (Late st Contact Info) Description 10/18/2023 10:00 AM EDT Hospital Encounter [place] [address] Arrived documented as of this encounter Visit Diagnoses Not on filedocumented in this encounter Care Teams Canal Equipment Maintenance Supervisor Relationship Specialty Start Date End Date Lolly Oliveira MD [address] [place] [address] PCP - General 07/17/13 documented as of this encounter
--- OUTSIDE RECORDS SUMMARY | 2023-10-13 11:50 | XMS_ITS | Encounter Summary ---
Author Organization [facility] [place] [place] [address] Care Team Providers Care Waste Collector Name Role Phone Lolly Oliveira MD Primary Care Provider [phone] Encounter Details Date Type Department Care Team (Latest Contact Info) Description 04/21/2023 10:00 AM EST - 04/21/2023 11:59 PM EST Hospital Encounter [place] [phone] Discharge Disposition: Home Social History Tobacco Use Types Packs/Day Years Used Date Smoking Tobacco: Never Alcohol Use Standard Drinks/Week Comments Not Currently 0 (1 standard drink = 0.6 oz pur e alcohol) IPV Inpatient Questions Answer Date Recorded Does Anyone [...] on file documented as of this encounter Medications at Time of Discharge Medication Sig Dispensed Refills Start Date End Date turmeric root extract 500 mg capsule daily. 09/26/2018 cholecalciferol, Vitamin D3, 50 mcg (2,000 unit) Capsule daily. 04/20/2022 metoprolol succinate XL (Toprol-XL) 50 mg ER 24 hr tabletIndications:Nonisc hemic cardiomyopathy Take 1 tablet by mouth nightly. 30 tablet 5 11/11/2022 aspirin EC 81 mg EC (DR) tablet Take 81 mg by mouth daily. Jardiance 10 mg Tablet TAKE 1 TABLET BY MOUTH ONCE DAILY FOR HF 02/16/2022 furosemide (Lasix) 20 mg Tablet Take 20 mg by mouth daily. 04/06/2022 rosuvastatin (Crestor) 5 mg Tablet Take 5 mg by mouth nightly. 01/26/2022 lisinopriL (Zestril) 20 mg Tablet Take 20 mg by mouth daily. 02/23/2022 turmeric-turmeric root extract 450-50 mg Capsule Take 1 tablet by mouth daily. albuteroL 90 mcg/actuation HFA Aerosol Inhaler Inhale 2 puffs into the lungs every 6 hours as needed for Wheezing. Use with spacer fluticasone propionate (Flonase) 50 mcg/actuation [place], Suspension 1 spray by Each Nare route daily as needed. cholecalciferol, Vitamin D3, 50 mcg (2,000 unit) Capsule Take by mouth daily. 07/19/2023 Klor-Con M10 10 mEq Tab Sust.Rel. Particle/Crystal Take 10 mEq by mouth daily. 03/31/2022 07/19/2023 clobetasoL (Temovate) 0.05 % Cream Apply to residual areas of psoriasis on the shins twice daily for six weeks 45 g 3 04/09/2022 07/19/2023 documented as of this encounter Plan of Treatment Upcoming Encounters Date Type Department Care Team (Late st Contact Info) Description 10/18/2023 10:00 AM EDT Hospital Encounter Non[place] [address] Arrived documented as of this encounter Procedures Procedure Name Priority Date/Time Associated Diagnosis Comments PRO ICD INTERROGATION REMOTE UP TO 90 DAYS Routine 02/22/2023 4:31 AM EST CARDIAC DEVICE CHECK - REMOTE Routine 01/29/2023 4:55 AM EST documented in this encounter Results * Cardiac Device Check - Remote (02/22/2023 4:31 AM EST) Anatomical Region Laterality Modality Other 02/22/2023 4:31 AM EST Tre Aleman MD IMPLANTABLE CARDIAC DEVICE * Cardiac Device Check - Remote (01/29/2023 4:55 AM EST) Anatomical Region Laterality Modality Other 01/29/2023 4:55 AM EST Narrative Authorizing Provider Result Ming AREVALO IMPLANTABLE CARDIAC DEVICE documented in this encounter Visit Diagnoses Not on filedocumented in this encounter Care Teams Waste Collector Relationship Specialty Start Date End Date Lolly Oliveira MD [address] [place] [address] PCP - General 07/17/13 documented as of this encounter
--- OUTSIDE RECORDS SUMMARY | 2023-10-13 11:50 | XMS_ITS | Encounter Summary ---
[place] [address] Care Team Providers Care Pilot Boat Deckhand Name Role Phone Lolly Oliveira MD Primary Care Provider [phone] Encounter Details Date Type Department Care Team (Latest Contact Info) Description 07/02/2022 Travel Social History Tobacco Use Types Packs/Day Years Used Date Smoking Tobacco: Never Sex and Gender Information Value Date Recorded Sex Assigned at Not on file Gender Identity Not on file Sexual Orientation Not on file documented as of this encounter Plan of Treatment Upcoming Encounters Date Type Department Care Team (Late st Contact Info) Description 10/18/2023 10:00 AM EDT Hospital Encounter Non-Invasive [place] [phone] Arrived documented as of this encounter Visit Diagnoses Not on filedocumented in this encounter Care Teams Pilot Boat Deckhand Relationship Specialty Start Date End Date Lolly Oliveira MD [address] [place], [place] [address] PCP - General 07/17/13 documented as of this encounter
--- OUTSIDE RECORDS SUMMARY | 2023-10-13 11:50 | XMS_ITS | Encounter Summary ---
Author Organization [facility], [facility] [place] [address] Care Team Providers Care Practical Nursing Instructor Name Role Phone Lolly Oliveira MD Primary Care Provider Encounter Details Date Type Department Care Team (Late st Contact Info) Description 11/16/2022 Telephone Cardiology at [address] [phone] Luna Rousseau, RN Social History Tobacco Use Types Packs/Day Years Used Date Smoking Tobacco: Never Alcohol Use Standard Drinks/Week Comments Not Currently 0 (1 standard drink = 0.6 oz pur e alcohol) [facility] Inpatient Questions Answer Date Recorded Does Anyone [...] documented as of this encounter Miscellaneous Notes * Telephone Encounter - Luna Rousseau, RN - 11/16/2022 3:52 PM EDT Pt called to advise Dr. Mcmahon that she had some LH this morning and she wasn't sure if she should reduce her dose of Metoprolol back down again. We discussed this and she has decided to stay the course and monitor her BP and HR over the next few days and if she has any more episodes she will let this office know. Will update Dr. Mcmahon. Pt's BP today was 118/57 at CR at [facility]. Pt is going twice a week to CR there and they do check her BP and HR. She will also have them show her how to check her BP on her home monitor again so she can monitor this from home. Pt was also advised to increase her water intake. Dr. Mcmahon had increased the Metoprolol from 25 mg to 50 mg at night because pt's LVEF was still moderately depressed. Pt was also advised to make position changes slowly and do not sit upquickly or stand up quickly to decrease feeling of LH. Pt verbalizes understanding. Pt will contactthe Device clinic nurses if she has any further issues. documented in this encounter Plan of Treatment Upcoming Encounters Date Type Department Care Team (Late st Contact Info) Description 10/18/2023 10:00 AM EDT Hospital Encounter [place] [address] Arrived documented as of this encounter Visit Diagnoses Not on filedocumented in this encounter Care Teams Practical Nursing Instructor Relationship Specialty Start Date End Date Lolly Oliveira MD [address] [place] [address] PCP - General 07/17/13 documented as of this encounter
--- OUTSIDE RECORDS SUMMARY | 2023-10-13 11:50 | XMS_ITS | Encounter Summary ---
Author Organization [facility] Address [facility] [place] [address] Care Team Providers Care Well Cleaner Name Role Phone Lolly Oliveira MD Primary Care Provider [phone] Encounter Details Date Type Department Care Team (Late st Contact Info) Description 11/11/2022 Orders Only Cardiology at [address] [phone] Lalit Mcmahon MD [facility] [place] [address] Nonischemic cardiomyopathy Social History Tobacco Use Types Packs/Day Years Used Date Smoking Tobacco: Never Alcohol Use Standard Drinks/Week Comments Not Currently 0 (1 standard drink = 0.6 oz pur e alcohol) [facility] Inpatient Questions Answer Date Recorded Does Anyone [...] AM EDT Hospital Encounter [place] [phone] Arrived documented as of this encounter Visit Diagnoses Diagnosis Nonischemic cardiomyopathy Other primary cardiomyopathies documented in this encounter Care Teams Well Cleaner Relationship Specialty Start Date End Date Lolly Oliveira MD [address] [place] [address] PCP - General 07/17/13 documented as of this encounter
--- OUTSIDE RECORDS SUMMARY | 2023-10-13 11:50 | XMS_ITS | Encounter Summary ---
Author Organization [facility] [place] [address] Care Team Providers Care Aluminum Welder Name Role Phone Lolly Oliveira MD Primary Care Provider [phone] Reason for Visit * Diagnostic Test (Routine) - Closed Specialty Diagnoses / Procedures Referred By Contac t Referred To Contact Radiology Diagnoses Left bundle branch block Nonischemic cardiomyopathy Procedures MRI Cardiac Morphology Function With Flow Velocity Quantification wwo Contrast MRI Cardiac Morphology Function wwo Contrast Lalit Mcmahon MD [facility] [address] [facility] [place] [address] Referral ID Status Reason Start Date Expiration Date V isits Requested Visits Authorized [id number] Closed Specialty Service Requested 05/06/2022 11/07/2023 2 1 Encounter Details Date Type Department Care Team (Latest Contact Info) Description 07/14/2022 9:09 AM EDT - 07/14/2022 11:59 PM EDT Hospital [place] [address] Lalit Mcmahon MD [facility] [place] [address] Discharge Disposition: Home Social History Tobacco Use [...] 50 mcg (2,000 unit) Capsule daily. 04/20/2022 aspirin EC 81 mg EC (DR) tablet [...] with spacer fluticasone propionate (Flonase) 50 mcg/actuation [place], Suspension 1 spray by Each Nare route daily as needed. cholecalciferol, Vitamin D3, 50 mcg (2,000 unit) Capsule Take by mouth daily. 07/19/2023 metoprolol succinate XL (Toprol-XL) 25 mg Tablet Sustained Release 24 hr Take 25 mg by mouth nightly. 01/26/2022 11/11/2022 Klor-Con M10 10 mEq Tab Sust.Rel. Particle/Crystal [...] AM EDT Hospital Encounter [place] [address] Arrived documented as of this encounter Procedures Procedure Name Priority Date/Time Associated Diagnosis Comments MRI CARDIAC MORPHOLOGY FUNCTION WITH FLOW VELOCITY QUANTIFICATION WWO CONTRAST Routine 07/14/2022 11:57 AM EDT Left bundle branch block Nonischemic cardiomyopathy documented in this encounter Visit Diagnoses Not on filedocumented in this encounter Administered Medications Inactive Administered Medications - up to 3 most recent administrations Medication Order MAR Action Action Date Dose Rate Site gadoterate meglumine (Dotarem) (0.5 mMol/mL) injection solution 0-100 mL 0-100 mL, Intravenous, ONCE PRN, 1 dose, Starting on Wed07/14/22 at 1153, Until Wed07/14/22 at 1130, Per Protocol, Radiology Contrast, Routine Given 07/14/2022 11:30 AM EDT 38 mLs documented in this encounter Care Teams Aluminum Welder Relationship Specialty Start Date End Date Lolly Oliveira MD [address] [place] [address] PCP - General 07/17/13 documented as of this encounter
--- OUTSIDE RECORDS SUMMARY | 2023-10-13 11:50 | XMS_ITS | Encounter Summary ---
Author Organization [facility] [place] [address] Care Team Providers Care Clinique Counter Manager Name Role Phone Lolly Oliveira MD Primary Care Provider Reason for Visit * Reason Comments Psoriasis Encounter Details Date Type Department Care Team (Late st Contact Info) Description 04/09/2022 1:45 PM EST Office Visit Dermatology at [address] [phone] Clay Ramírez MD [address] [facility] [place] [address] Psoriasis, guttate Social History Tobacco Use Types Packs/Day Years Used Date Smoking Tobacco: Never Sex and Gender Information Value Date Recorded Sex Assigned at Not on file Gender Identity Not on file Sexual Orientation Not on file documented as of this encounter Progress Notes * Clay Ramírez MD - 04/09/2022 1:45 PM EST Problem: 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 She is been going in Tuesdays and Fridays. Physical examination reveals a pleasant 71-year-old woman who continues to have small patches of psoriasis on the anterior shins but has cleared all of the other areas. 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 Decrease from 3 times weekly to just 2 times weekly, Mondays and Fridays 2. Maintain current dosing 3. Begin clobetasol cream applying to residual areas of psoriasis on the shins applying twice dailyuntil next visit in 6 weeks time return to clinic in 6 weeks CC: Lolly Kerr MD documented in this encounter Plan of Treatment Upcoming Encounters Date Type Department Care Team (Late st Contact Info) Description 10/18/2023 10:00 AM EDT Hospital Encounter Non-Invasive [place] [address] Arrived documented as of this encounter Visit Diagnoses Diagnosis Psoriasis, guttate Other psoriasis documented in this encounter Care Teams Clinique Counter Manager Relationship Specialty Start Date End Date Lolly Oliveira MD [address] [place] [address] PCP - General 07/17/13 documented as of this encounter
--- OUTSIDE RECORDS SUMMARY | 2023-10-13 11:50 | XMS_ITS | Encounter Summary ---
Author Organization [facility] [place] [address] Care Team Providers Care Solar Installer Pv Name Role Phone Lolly Oliveira MD Primary Care Provider [phone] Reason for Referral * Diagnostic Test (Routine) - Closed Specialty Diagnoses / Procedures Referred By Contac t Referred To Contact Radiology Diagnoses Left bundle branch block Nonischemic cardiomyopathy Procedures MRI Cardiac Morphology Function With Flow Velocity [facility] Contrast MRI Cardiac Morphology Function wwo Contrast Lalit Mcmahon MD [facility] [place] [address] [place] [address] Referral ID Status Reason Start Date Expiration Date V isits Requested Visits Authorized [id number] Closed Specialty Service Requested 05/06/2022 11/07/2023 2 1 Reason for Visit * Diagnostic Test (Routine) - Closed Specialty Diagnoses / Procedures Referred By Contac t Referred To Contact Radiology Diagnoses Left bundle branch block Nonischemic cardiomyopathy Procedures MRI Cardiac Morphology Function With Flow Velocity Quantification o Contrast MRI Cardiac Morphology Function wwo Contrast Lalit Mcmahon MD [facility] [place] [address] [place] [address] Referral ID Status Reason Start Date Expiration Date V isits Requested Visits Authorized [id number] Closed Specialty Service Requested 05/06/2022 11/07/2023 2 1 Encounter Details Date Type Department Care Team (Latest Contact Info) Description 07/14/2022 9:08 AM EDT Hospital Encounter MRI at [facility] [place] [id number] Lalit Mcmahon MD [facility] [place] [address] Left bundle branch block; Nonischemic cardiomyopathy Discharge Disposition: Home Social History Tobacco Use [...] with spacer fluticasone propionate (Flonase) 50 mcg/actuation Patriot, Suspension 1 spray by Each Nare route [...] 04/09/2022 07/19/2023 documented as of this encounter Progress Notes * Mena Beltran RN - 07/08/2022 3:54 PM EDT MRI PRE-SEDATION ASSESSMENT NOTE NAME: Luna Mott AGE: 71 y.o. : 1950 [address] [facility] [address] Female [phone] (home) No relevant phone numbers on file. Lolly Oliveira MD None Allergies Allergen Reactions ??? Sulfa (Sulfonamide Antibiotics) Date/Time of call: July 07, 2022/11:03 AM/ PREVIOUS MRI SCAN? HEIGHT: WEIGHT: SCHEDULED SCAN: MRI CARDIAC MORPHOLOGY FUNCTION WITH FLOW VELOCITY QUANTIFICATION WWO CONTRAST [[id number]] Order Questions Answers Where will study be performed? [facility] Radiology [120] SUBJECTIVE: Very Claustrophobic CAN YOU LAY FLAT?: Yes AIRWAY/BREATHING ISSUES?: No DO YOU HAVE ANY INVOLUNTARY MOVEMENTS?: No DO YOU HAVE ANY PAIN?: No DO YOU TAKE PAIN MED ON A DAILY BASIS?: No ASSESSMENT: Appropriate for PO sedation PLAN: Ativan 0.5 mg Po x 1 ordered per protocol, one pill only due to breath holds ( KV ) You must have a racing driver present when you check in. This patient has been informed that they require a racing driver to drive them home after this procedure. In the absence of a racing driver, IR will not be able to sedate for your scan. Pt verbalized understanding of these instructions during the pre-procedure education via phone. Yes Name of racing driver: Daughter Phone number: PRIOR SCAN DATE/S SEDATION TYPE SUCCESSFUL 07/14/22 MRI Cardiac Morphology Function with Flow Velocity Quantification wwo Contrast Ativan 1mg x 1 dose Pass Revised 08/03/17 documented in this encounter Plan of Treatment Upcoming Encounters Date Type Department Care Team (Late st Contact Info) Description 10/18/2023 10:00 AM EDT Hospital Encounter [place] [address] Arrived documented as of this encounter Procedures Procedure Name Priority Date/Time Associated Diagnosis Comments MRI CARDIAC MORPHOLOGY FUNCTION WITH FLOW VELOCITY QUANTIFICATION WWO CONTRAST Routine 07/14/2022 11:57 AM EDT Left bundle branch block Nonischemic cardiomyopathy documented in this encounter Results * MRI Cardiac Morphology Function With Flow Velocity Quantification wwo Contrast (07/14/2022 11:57 AMEDT) Anatomical Region Laterality Modality Chest, Cardiac Magnetic Resonan ce Impressions 07/15/2022 9:53 AM EDT Cardiac MRI findings are consistent with a nonspecific, nonischemic cardiomyopathy. - Mildly dilated left ventricle size with moderately decreased LV systolic function. ??LV ejection fraction is 31%. There is global hypokinesis with abnormal septal motion secondary to bundle branch block. - No evidence of prior ischemic damage or infiltrative myocardial process on delayed enhancement imaging. - Normal right ventricle size and shape with low-normal RV systolic function. RV ejection fraction is 50%. - No significant valvular abnormalities. - Normal pericardium. Thank you for letting us participate in the care of this patient. ??If you are a health care provider and have any questions regarding this report, please contact the number below. ??For patients who have questions please contact the health home visit field care manager that requested your imaging first. ? Electronically signed by: Greyson Herron MD, [facility] ([phone]), at 07/15/2022 9:53 AM Narrative 07/15/2022 9:53 AM EDT EXAMINATION: MRI CARDIAC MORPHOLOGY FUNCTION WITH FLOW VELOCITY QUANTIFICATION WWO CONTRAST CLINICAL HISTORY: Left bundle branch block (LBBB), new; Heart failure, known or suspected, initial workup; Cardiomyopathy, follow up COMPARISON: None. TECHNIQUE: Axial HASTE without contrast. Short and long axis cine steady-state free precession without contrast. ?? Phase contrast imaging just above the aortic valve level. Short and long axis rest perfusion and delayed enhancement after intravenous administration of 38 cc of Dotarem Post-processing performed on an independent computer workstation. POTENTIAL STUDY LIMITATIONS: ??None ANTHROPOMETRICS: ??BSA 2.04 FINDINGS: The chest wall and mediastinum appear normal. No significant adenopathy is identified. The study was not optimized to assess the lungs; however, limited imaging reveals no gross abnormalities. The pulmonary arteries appear normal. ??Main pulmonary artery: 2.7 cm. Cardiac Chambers: The cardiac chambers demonstrate normal atrioventricular and ventriculoarterial concordance, as well as normal systemic and pulmonary venous return. There is lipomatous hypertrophy of the intra-atrial septum.. LEFT VENTRICLE: Mildly dilated left ventricle size with moderately decreased LV systolic function. ??LV ejection fraction is 31%. There is global hypokinesis with abnormal septal motion secondary to bundle branch block. ??No LV thrombus visualized. LV Mass: 142 g LV Mass Index: 69 g/m^2 LV End-Diastolic Volume: 225 mL LV End-Diastolic Volume Index: 110 mL/m^2 LV End-Systolic Volume: 155 mL LV End-Systolic Volume Index: 76 mL/m^2 Stroke Volume: 70 mL Stroke Volume Index: 34 mL/m^2 Ejection Fraction: 31 % Cardiac Output: 5.2 L/min Cardiac Index: ??2.5 L/(min*m^2) Anteroseptal Wall Thickness: 10 mm Posterolateral Wall Thickness: 8 mm End-Diastolic Dimension: 63 mm End-Systolic Dimension: 54 mm RIGHT VENTRICLE: Normal right ventricle size and shape with low-normal RV systolic function. ??RV ejection fraction is 50%. ??No regional wall motion abnormalities. RV End-Diastolic Volume: 81 mL RV End-Diastolic Volume Index: 39 mL/m^2 RV End-Systolic Volume: 40 mL RV End-Systolic Volume Index: 20 mL/m^2 RV Stroke Volume: 41 mL RV Stroke Volume Index: 20 mL/m^2 RV Ejection Fraction: 50% MYOCARDIUM: Non-Contrast Series: No abnormal findings. ??No obvious increased signal on T2-weighted or STIR imaging to suggest myocardial edema. Post-Contrast Series: - Rest Perfusion: ??Normal. - Post-Contrast Inversion Recovery: ??Normal gadolinium kinetics. - Delayed Enhancement: ?? No evidence of prior ischemic damage or infiltrative myocardial process. VALVES: Aortic valve: ??Trileaflet aortic valve. ??Adequate systolic leaflet excursion. No significant regurgitation. visualized aortic regurgitation. Flow quantification through the aorta reveals: Aortic regurgitant fraction: 0 % Mitral Valve: Mild visualized mitral regurgitation. Pulmonic Valve: Trace visualized pulmonic regurgitation. Tricuspid Valve: Trace to mild visualized tricuspid regurgitation. OTHER CARDIOVASCULAR STRUCTURES: Pericardium: ??Normal pericardium. ??No pericardial effusion, thickening, or delayed pericardial enhancement. Thoracic Aorta: ??No acute or obvious abnormalities, although study was not optimized for aorta assessment. UPPER ABDOMEN: ??No significant abnormalities of the visualized organs. Procedure Note Greyson Herron MD - 07/15/2022 EXAMINATION: MRI CARDIAC MORPHOLOGY FUNCTION WITH FLOW VELOCITYQUANTIFICATION WWO CONTRAST CLINICAL HISTORY: Left bundle branch block (LBBB), new; Heart failure,known or suspected, initial workup; Cardiomyopathy, follow up COMPARISON: None. TECHNIQUE: Axial HASTE without contrast. Short and long axis cine steady-state free precession without contrast. Phase contrast imaging just above the aortic valve level. Short and long axis rest perfusion and delayed enhancement afterintravenous administration of 38 cc of Dotarem Post-processing performed on an independent computer workstation. POTENTIAL STUDY LIMITATIONS: None ANTHROPOMETRICS: BSA 2.04 FINDINGS: The chest wall and mediastinum appear normal. No significant adenopathyis identified. The study was not optimized to assess the lungs; however,limited imaging reveals no gross abnormalities. The pulmonary arteries appear normal. Main pulmonary artery: 2.7 cm. Cardiac Chambers: The cardiac chambers demonstrate normal atrioventricular andventriculoarterial concordance, as well as normal systemic and pulmonary venous return. Thereis lipomatous hypertrophy of the intra-atrial septum.. LEFT VENTRICLE: Mildly dilated left ventricle size with moderately decreased LV systolic function. LV ejection fraction is 31%. There is global hypokinesis with abnormal septal motion secondary to bundle branch block. No LV thrombus visualized. LV Mass: 142 g LV Mass Index: 69 g/m^2 LV End-Diastolic Volume: 225 mL LV End-Diastolic Volume Index: 110 mL/m^2 LV End-Systolic Volume: 155 mL LV End-Systolic Volume Index: 76 mL/m^2 Stroke Volume: 70 mL Stroke Volume Index: 34 mL/m^2 Ejection Fraction: 31 % Cardiac Output: 5.2 L/min Cardiac Index: 2.5 L/(min*m^2) Anteroseptal Wall Thickness: 10 mm Posterolateral Wall Thickness: 8 mm End-Diastolic Dimension: 63 mm End-Systolic Dimension: 54 mm RIGHT VENTRICLE: Normal right ventricle size and shape with low-normal RV systolicfunction. RV ejection fraction is 50%. No regional wall motion abnormalities. RV End-Diastolic Volume: 81 mL RV End-Diastolic Volume Index: 39 mL/m^2 RV End-Systolic Volume: 40 mL RV End-Systolic Volume Index: 20 mL/m^2 RV Stroke Volume: 41 mL RV Stroke Volume Index: 20 mL/m^2 RV Ejection Fraction: 50% MYOCARDIUM: Non-Contrast Series: No abnormal findings. No obvious increased signalon T2-weighted or STIR imaging to suggest myocardial edema. Post-Contrast Series: - Rest Perfusion: Normal. - Post-Contrast Inversion Recovery: Normal gadolinium kinetics. - Delayed Enhancement: No evidence of prior ischemic damage orinfiltrative myocardial process. VALVES: Aortic valve: Trileaflet aortic valve. Adequate systolic leafletexcursion. No significant regurgitation. visualized aortic regurgitation. Flow quantification through the aorta reveals: Aortic regurgitant fraction: 0 % Mitral Valve: Mild visualized mitral regurgitation. Pulmonic Valve: Trace visualized pulmonic regurgitation. Tricuspid Valve: Trace to mild visualized tricuspid regurgitation. OTHER CARDIOVASCULAR STRUCTURES: Pericardium: Normal pericardium. No pericardial effusion, thickening,or delayed pericardial enhancement. Thoracic Aorta: No acute or obvious abnormalities, although study wasnot optimized for aorta assessment. UPPER ABDOMEN: No significant abnormalities of the visualized organs. IMPRESSION Cardiac MRI findings are consistent with a nonspecific, nonischemic cardiomyopathy. - Mildly dilated left ventricle size with moderately decreased LVsystolic function. LV ejection fraction is 31%. There is global hypokinesis with abnormal septal motion secondary to bundle branch block. - No evidence of prior ischemic damage or infiltrative myocardial processon delayed enhancement imaging. - Normal right ventricle size and shape with low-normal RV systolicfunction. RV ejection fraction is 50%. - No significant valvular abnormalities. - Normal pericardium. Thank you for letting us participate in the care of this patient. If youare a health care provider and have any questions regarding this report,please contact the number below. For patients who have questions please contactthe health home visit field care manager that requested your imaging first. Lalit Mcmahon MD IMG MRI ORDERABLES documented in this encounter Visit Diagnoses Diagnosis Left bundle branch block Other left bundle branch block Nonischemic cardiomyopathy Other primary cardiomyopathies documented in this encounter Administered Medications Inactive Administered Medications - up to 3 most recent administrations Medication Order MAR Action Action Date Dose Rate Site LORazepam (Ativan) tablet 0.5 mg 0.5 mg, Oral, EVERY 30 MIN PRN, 1 dose, Starting on Wed07/14/22 at 0753, Until Wed07/14/22 at 0928, Anxiety, Minimal Sedation per Department of Radiology Adult Minimal Sedation Guidelines: Give 50 minutes prior to scan., Angio/IR (Day of Procedure), Routine Given 07/14/2022 9:28 AM EDT 0.5 mg documented in this encounter Care Teams Solar Installer Pv Relationship Specialty Start Date End Date Lolly Oliveira MD [address] [place] [address] PCP - General 07/17/13 documented as of this encounter
--- OUTSIDE RECORDS SUMMARY | 2023-10-13 11:50 | XMS_ITS | Encounter Summary ---
Author Organization [facility] [place] [address] Care Team Providers Care Brick Mason Name Role Phone Lolly Oliveira MD Primary Care Provider [phone] Reason for Visit * Reason Comments Follow-up 8 weeks UVB treatmen t twice weekly Encounter Details Date Type Department Care Team (Late st Contact Info) Description 07/19/2023 11:00 AM EDT Office Visit Dermatology at [address] [id number] Clay Ramírez MD [address], [facility]RIKA A DERMATOLOGY [place], [place] [id number] Psoriasis Social History Tobacco Use Types Packs/Day Years [...] Progress Notes * Clay Ramírez MD - 07/19/2023 11:00 AM EDT Problem: 1. History of psoriasis 2. Follow-up psoriasis status post 8 weeks of twice weekly narrowband UVB. Luna follows up after restarting on narrowband UVB in mid May. She been tolerating it well and is doing well with the total-body/extra time to legs only approach. She would like to continue thephototherapy until she clears, and then take advantage of the summer sun to maintain her clearance until the fall, and then again restart narrowband UVB as per 05/18/2023 orders. Physical examination confirms that her psoriasis is significantly improved the worst area being theleft anterior ortiz but since faded and is no longer hyperkeratotic. Assessment plan: Psoriasis undergoing narrowband UVB phototherapy status post 15 treatments now at treatment dosing of 1888 mJ/cm??. 1. Continue phototherapy twice weekly. 2. Patient goes in to cardiac rehab every Wednesday anyway so she can combine the 2 visits. 3. Once psoriasis clears and discontinue narrowband UVB until November or December 4. At that time patient will contact the office and we will renew the 05/18/2023 orders to restart once weekly therapies to prevent a wintertime flare. CC: Lolly Oliveira MD documented in this encounter Plan of Treatment Upcoming Encounters Date Type Department Care Team (Late st Contact Info) Description 10/18/2023 10:00 AM EDT Hospital Encounter [place] [address] Arrived documented as of this encounter Visit Diagnoses Diagnosis Psoriasis Other psoriasis documented in this encounter Care Teams Brick Mason Relationship Specialty Start Date End Date Lolly Oliveira MD [address] [place] [address] PCP - General 07/17/13 documented as of this encounter
--- OUTSIDE RECORDS SUMMARY | 2023-10-13 11:50 | XMS_ITS | Encounter Summary ---
Author Organization [facility] [place] [address] Care Team Providers Care Line Haul Owner Operator Name Role Phone Lolly Oliveira MD Primary Care Provider [phone] Reason for Referral * Consultation (Routine) - Closed Specialty Diagnoses / Procedures Referred By Contact Referred To Contact Electrophysiology / Cardiology Diagnoses Left bundle branch block Cardiomyopathy, unspecified type AT MINIMUM PT NEEDS CONSIDERATION FOR DEFIBRILLATOR, ALSO CANDIDATE FOR RESYNCHRONIZATION THERAPY HER QRS IS >0.16 Lolly Oliveira MD [address] [place] [address] [facility] [address] [place] [id number] Referral ID Status Reason Start Date Expiration Date V isits Requested Visits Authorized [id number] Closed Consult, Test & Treat PCP Updated and/or Approved 04/30/2022 04/30/2023 6 6 Encounter Details Date Type Department Care Team (Latest Contact Info) Description 04/30/2022 Transcribe Orders eDH Incoming Referrals [phone] Lolly Oliveira MD [address] [place], [place] [id number] Left bundle branch block; Cardiomyopathy, unspecified type Social History Tobacco Use Types Packs/Day Years [...] AM EDT Hospital Encounter Non-[place] [address] Arrived Scheduled Referrals Name Type Priority Associated Diagnoses Orde r Schedule Referral to Cardiology Outpatient Referral Routine Left bundle branch block Cardiomyopathy, Unspecified Type Ordered: 04/30/2022 documented as of this encounter Visit Diagnoses Diagnosis Left bundle branch block Other left bundle branch block Cardiomyopathy, unspecified type documented in this encounter Care Teams Line Haul Owner Operator Relationship Specialty Start Date End Date Lolly Oliveira MD [address] [place] [address] PCP - General 07/17/13 documented as of this encounter
--- OUTSIDE RECORDS SUMMARY | 2023-10-13 11:50 | XMS_ITS | Encounter Summary ---
[place] [address] Care Team Providers Care Dealership Manager Name Role Phone Lolly Oliveira MD Primary Care Provider [phone] Encounter Details Date Type Department Care Team (Latest Contact Info) Description 07/14/2022 Travel Social History Tobacco Use Types Packs/Day [...] AM EDT Hospital Encounter Non-Invasive [place] [phone] Arrived documented as of this encounter Visit Diagnoses Not on filedocumented in this encounter Care Teams Dealership Manager Relationship Specialty Start Date End Date Lolly Oliveira MD [address] [place], [place] [address] PCP - General 07/17/13 documented as of this encounter
--- OUTSIDE RECORDS SUMMARY | 2023-10-13 11:50 | XMS_ITS | Encounter Summary ---
Author Organization [place] [address] Care Team Providers Care Museum Archivist Name Role Phone Lolly Oliveira MD Primary Care Provider [phone] Encounter Details Date Type Department Care Team (Late st Contact Info) Description 05/18/2023 Refill Dermatology at [address] [address] Nora Meredith LPN Social History Tobacco Use Types Packs/Day Years [...] encounter Miscellaneous Notes * Telephone Encounter - Nora Meredith LPN - 05/18/2023 10:32 AM EDT Last visit 07/02/22 Stopped UVB light therapy Patient reports psoriasis is worse. Left leg red blotchy, chest and arms are red, peeling, and getting worse. She would like to start UVB light therapy again. Been using clobetasol cream (is out at this time. Last refill 04/09/22) She voiced she has not started any new medications since 07/02/22. Dr. Mar recommendations: Begin UVB light therapy. New prescription for clobetasol cream apply twice daily as needed 45 gm Refills [address] Mar recommendations with patient. She voiced understanding. Order sent to [facility] drug. documented in this encounter Plan of Treatment Upcoming Encounters Date Type Department Care Team (Late st Contact Info) Description 10/18/2023 10:00 AM EDT Hospital Encounter [place] [address] Arrived documented as of this encounter Visit Diagnoses Not on filedocumented in this encounter Care Teams Museum Archivist Relationship Specialty Start Date End Date Lolly Oliveira MD [address] [place] [address] PCP - General 07/17/13 documented as of this encounter
--- OUTSIDE RECORDS SUMMARY | 2023-10-13 11:50 | XMS_ITS | Encounter Summary ---
Author Organization [facility] [place] [address] Care Team Providers Care Vc++ Developer Name Role Phone Lolly Oliveira MD Primary Care Provider [phone] Reason for Visit * Reason Onset Date Comments Post Procedure Call 07/30/2022 Encounter Details Date Type Department Care Team (Late st Contact Info) Description 07/30/2022 Notes Only Cardiology at [address] [phone] Rosenda Sutton, RN Post Procedure Call Social History Tobacco Use Types Packs/Day Years Used Date Smoking Tobacco: Never Alcohol Use Standard Drinks/Week Comments Not Currently 0 (1 standard drink = 0.6 oz pur e alcohol) [facility] Inpatient Questions Answer Date [...] as of this encounter Progress Notes * Rosenda Sutton RN - 07/30/2022 9:59 AM EDTSummary: Post Procedure Call: CHART CLERK implant EP RN Post-Procedure Note: Date of Follow Up Call: 07/30/2022 Spoke With: Patient Procedure Type (choose all that apply): ICD Performing MIRLANDE Mcmahon Date of Procedure: 07/23/2022 Date of Discharge: 07/24/2022 Follow Up EP Visit Scheduled?: No No Follow Up Visit Reason: Follow up outside Outside Location: [facility] Date of Non EP Visit: 08/12/2022 Intra or Post Procedure Event: Did any Intra or Post Procedure Events Occur?: No Medications at Hospital Discharge: Aspirin: Yes P2Y12 Inhibitor: No Other Antiplatelet: No Warfarin: No DOAC: No Other Anticoagulant: No Beta Maureen (any): Yes Digoxin: No Diltiazem/Verapamil: No Amiodarone: No Dofetilide: No Dronedarone: No Flecainide: No Propafenone: No Sotalol: No PPI: No Other Antiarrhythmic: No Assessment: Access Site Assessment (Choose all that apply): None of the above Device Pocket Assessment (Choose all that apply): None of the above UTI symptoms (Choose all that apply): None of the above Signs and Symptoms of Infection (Choose all that apply): None of the above Headaches: No Complaints of: (choose all that apply): None of the above Free Text Note: Follow-up Recommendations for Providers: - s/p CHART CLERK-D implant - post implant QRS 130 ms - reviewed post-implant instructions - no medication changes - Follow up in device clinic for wound/device check in ~10 days??([facility]) Wound Care: -Wound will heal in approx 7-10 days.It may be tender, it may appear slightly red and bumpy and there may -be dry, crusty scabbing. These are all normal. -Inspect the wound for signs of infection which can be drainage, swelling, warmth or increased painor redness. - Do not scratch or rub the wound or apply any creams, lotions or ointments on the wound until it is completely healed. - You may cover the wound with gauze if it rubs on clothing and causes you discomfort. - Avoid direct water pressure on the wound - continue this for 7 - 10 days. Do not submerge wound for 14 days - Do not scrub or wash would if Dermabond is used - You may remove your dressing on: Wednesday, July 31 Arm Restrictions: - Do not raise your elbow on the operated side above the shoulder for 6 weeks - Do not lift greater than 7 pounds (equal to a gallon of milk) on the operated side for 6 weeks. - Do not fully extend this arm in any direction away from the torso for 6 weeks - You may use your arm on the operated side, but do not make extreme movement (such as stretching or reaching for a heavy object) for 6 weeks - No driving for maximum of 1 week documented in this encounter Plan of Treatment Upcoming Encounters Date Type Department Care Team (Late st Contact Info) Description 10/18/2023 10:00 AM EDT Hospital Encounter Non[place] [address] Arrived documented as of this encounter Visit Diagnoses Not on filedocumented in this encounter Care Teams Vc++ Developer Relationship Specialty Start Date End Date Lolly Oliveira MD [address] [place] [address] PCP - General 07/17/13 documented as of this encounter
--- OUTSIDE RECORDS SUMMARY | 2023-10-13 11:50 | XMS_ITS | Encounter Summary ---
Author Organization [facility] [place] [address] Care Team Providers Care Technician Preventative Medicine Name Role Phone Lolly Oliveira MD Primary Care Provider [phone] Encounter Details Date Type Department Care Team (Late Contact Info) Description 01/14/2022 Telephone Dermatology at [address] [phone] Nora Meredith LPN Social History [...] to return. Started applying TAC 1-2 times daily.More spots and the TAC doesn't cure only temporally takes the flare away then returns. Continues tohave more flares. Dr. Ramírez recommends return to phototherapy. New order sent to [facility]. Reviewed with patient Dr. Mar recommendation. She agrees with plan of care. Advised patient order will be sent to [facility]. She voiced understanding. documented in this encounter Plan of Treatment Upcoming Encounters Date Type Department Care Team (Late Contact Info) Description 10/18/2023 10:00 AM EDT Hospital Encounter Non-Invasive [place] [address] Arrived documented as of this encounter Visit Diagnoses Not on filedocumented in this encounter Care Teams Technician Preventative Medicine Relationship Specialty Start Date End Date Lolly Oliveira MD [address] [place] [address] PCP - General 07/17/13 documented as of this encounter
--- OUTSIDE RECORDS SUMMARY | 2023-10-13 11:50 | XMS_ITS | Encounter Summary ---
Author Organization [facility] [place] [address] Care Team Providers Care Highway Landscape Architect Name Role Phone Lolly Oliveira MD Primary Care Provider [phone] Reason for Referral * Diagnostic Test (Routine) - Closed Specialty Diagnoses / Procedures Referred By Contac t Referred To Contact Radiology Diagnoses Left bundle branch block Nonischemic cardiomyopathy Procedures MRI Cardiac Morphology Function With Flow Velocity Quantification wwo Contrast MRI Cardiac Morphology Function wwo Contrast Lalit Mcmahon MD [facility] [address] [place] [address] Referral ID Status Reason Start Date Expiration Date V isits Requested Visits Authorized [id number] Closed Specialty Service Requested 05/06/2022 11/07/2023 2 1 Encounter Details Date Type Department Care Team (Late st Contact Info) Description 05/06/2022 Orders Only Cardiology at [address] [phone] Lalit Mcmahon MD [facility] [place] [address] Left bundle branch block; Nonischemic cardiomyopathy Social History Tobacco Use Types [...] AM EDT Hospital Encounter Non-[place] [phone] Arrived documented as of this encounter Results * MRI Cardiac Morphology [...] who have questions please contact the health post anesthesia care unit nurse that requested your imaging first. ? Narrative 07/15/2022 9:53 AM EDT EXAMINATION: MRI [...] patients who have questions please contactthe health post anesthesia care unit nurse that requested your imaging first. Lalit Mcmahon MD IMG MRI ORDERABLES documented in this encounter Visit Diagnoses Diagnosis Left bundle branch block Other left bundle branch block Nonischemic cardiomyopathy Other primary cardiomyopathies Left bundle branch block Other left bundle branch block Nonischemic cardiomyopathy Other primary cardiomyopathies documented in this encounter Care Teams Highway Landscape Architect Relationship Specialty Start Date End Date Lolly Oliveira MD [address] [place] [address] PCP - General 07/17/13 documented as of this encounter
--- OUTSIDE RECORDS SUMMARY | 2023-10-13 11:50 | XMS_ITS | Encounter Summary ---
Author Organization [facility] [address] Care Team Providers Care Retrimmer Name Role Phone Lolly Oliveira MD Primary Care Provider Encounter Details Date Type Department Care Team (Late st Contact Info) Description 05/18/2023 Telephone Dermatology at [address] [phone] Nora Meredith LPN Social History Tobacco Use Types Packs/Day Years Used Date Smoking Tobacco: Never Alcohol Use Standard Drinks/Week Comments Not Currently 0 (1 standard drink = 0.6 oz pur e alcohol) [facility] Inpatient Questions Answer Date Recorded Does [...] Encounter - Nora Meredith LPN - 05/18/2023 2:24 PM EDT Received call from Leonor at [facility] advising the patient will need to cut back to two daysa week due to staffing at this time. Also, she will have a male nurse 50% of the time. Notified patient she would have to cut back to twice a week instead of three times weekly due to staffing. Also, she would have to have a male nurse 50% of the time.She voiced understanding. Advised her Leonor would be calling her to schedule. documented in this encounter Plan of Treatment Upcoming Encounters Date Type Department Care Team (Late st Contact Info) Description 10/18/2023 10:00 AM EDT Hospital Encounter [place] [phone] Arrived documented as of this encounter Visit Diagnoses Not on filedocumented in this encounter Care Teams Retrimmer Relationship Specialty Start Date End Date Lolly Oliveira MD [address] [place] [address] PCP - General 07/17/13 documented as of this encounter
--- OUTSIDE RECORDS SUMMARY | 2023-10-13 11:50 | XMS_ITS | Encounter Summary ---
[place] [address] Care Team Providers Care Test Man Name Role Phone Lolly Oliveira MD Primary Care Provider [phone] Encounter Details Date Type Department Care Team (Latest Contact Info) Description 05/21/2022 Travel Social History Tobacco Use Types Packs/Day [...] AM EDT Hospital Encounter Non-[place] [phone] Arrived documented as of this encounter Visit Diagnoses Not on filedocumented in this encounter Care Teams Test Man Relationship Specialty Start Date End Date Lolly Oliveira MD [address] [place], [place] [address] PCP - General 07/17/13 documented as of this encounter
--- OUTSIDE RECORDS SUMMARY | 2023-10-13 11:50 | XMS_ITS | Clinical Summary ---
Author Organization [facility] [place] [address] Care Team Providers Care Developer Programmer Name Role Phone Lolly Oliveira MD Primary Care Provider [phone] Allergies Active Allergy Reactions Criticality Noted Date Comments Sulfa (Sulfonamide Antibiotics) High 11/23/2014 Other Reaction(s): speeds up heartrate Medications Medication Sig Dispensed Refills Start Date End Date Status turmeric-turmeric root extract 450-50 mg Capsule Take 1 tablet by mouth daily. Active albuteroL 90 mcg/actuation HFA Aerosol Inhaler Inhale 2 puffs into the lungs every 6 hours as needed for Wheezing. Use with spacer Active fluticasone propionate (Flonase) 50 mcg/actuation [place], Suspension 1 spray by Each Nare route daily as needed. Active Jardiance 10 mg Tablet TAKE 1 TABLET BY MOUTH ONCE DAILY FOR HF 02/16/2022 Active furosemide (Lasix) 20 mg Tablet Take 20 mg by mouth daily. 04/06/2022 Active rosuvastatin (Crestor) 5 mg Tablet Take 5 mg by mouth nightly. 01/26/2022 Active lisinopriL (Zestril) 20 mg Tablet Take 20 mg by mouth daily. 02/23/2022 Active aspirin EC 81 mg EC (DR) tablet Take 81 mg by mouth daily. Active metoprolol succinate XL (Toprol-XL) 50 mg ER 24 hr tabletIndications:Montserrat schemic cardiomyopathy Take 1 tablet by mouth nightly. 30 tablet 5 11/11/2022 Active clobetasoL (Temovate) 0.05 % Cream Apply to areas of psoriasis twice daily as needed 45 g 3 05/18/2023 Active turmeric root extract 500 mg capsule daily. 09/26/2018 Active cholecalciferol, Vitamin D3, 50 mcg (2,000 unit) Capsule daily. 04/20/2022 Acti ve potassium chloride ER (Klor-Con, K-Tab) 10 mEq ER tablet Take 1 tablet by mouth Daily at Noon. 06/07/2023 Active Active Problems Problem Noted Date Diagnosed Date HFrEF (heart failure with reduced ejection fract ion) 07/23/2022 Dermatofibroma 11/23/2014 Nevus 11/23/2014 Solar lentigo 11/23/2014 Encounters Date Type Department Care Team Description 07/20/2023 10:00 AM EDT - 07/20/2023 11:59 PM EDT Hospital Encounter Non-[place] [address] Discharge Disposition: Home 07/19/2023 11:00 AM EDT Office Visit Dermatology at [address] [phone] Clay Ramírez MD Psoriasis 07/19/2023 Travel from Last 3 Months Social History Tobacco Use Types Packs/Day Years Used Date Smoking Tobacco: Never Tobacco Cessation:Counseling Given: Not Answered Alcohol Use Standard Drinks/Week Comments Not Currently [...] on file Sexual Orientation Not on file Last Filed Vital Signs Vital Sign Reading Time Taken Comments Blood Pressure 129/53 07/24/2022 8:46 AM EDT Pulse 60 07/24/2022 8:46 AM EDT Temperature 36.5 ??C (97.7 ??F) 07/24/2022 8:46 AM ED T Respiratory Rate 16 07/24/2022 8:46 AM EDT Oxygen Saturation 99% 07/24/2022 8:46 AM EDT Inhaled Oxygen Concentration - - Weight 94.7 kg (208 lb 12.8 oz) 023 12:23 PM EDT Height 160 cm (5' 3) 05/11/2022 11:01 AM EST Body Mass Index 36.99 05/11/2022 11:01 AM EST Plan of Treatment Upcoming Encounters Date Type Department Care Team (Late st Contact Info) Description 10/18/2023 10:00 AM EDT Hospital Encounter Non-[place] [address] Arrived Health Maintenance Due Date Last Done Comments CT Colonography 1948 Colonoscopy 1948 Colorectal Cancer Screening 1948 FIT DNA 1948 FIT 1948 Sigmoidoscopy (10 year) with FIT yearly 1948 Sigmoidoscopy 1948 Hepatitis C Screening 1966 Tdap adult 08/10/1967 Tetanus vaccine 08/10/1967 Zoster vaccine (1 of 2) 1998 Advance Directive 08/10/2003 Bone Density Scan 2013 Pneumoccocal Vaccine: 65+ (1 of 1 - PCV) 2013 Covid-19 Vaccine ( - 2022-24 season) 2022 Influenza (Flu) vaccine (1 o f 1 - Influenza standard series) 11/07/2023 Medical Devices Implanted Type Area Pension Adviser Device Identifier Shelf Expiration Date Model / Serial / Lot Bsx: [id number]: [id number]/18/2 023 Implanted: by Lalit Mcmahon MD (Quantity not on file) Defibrillator Chest Wall [employer] [id number] / [id number] / Bsx: [id number]: [id number]/18/2 023 Implanted: by Lalit Mcmahon MD (Quantity not on file) Lead Heart [employer] [id number] / [id number] / Bsx: [id number]: [id number] Implanted: by Lalit Mcmahon MD (Quantity not on file) Lead Heart [employer] [id number] / [id number] / Bsx: [id number]: [id number]/18/2 023 Implanted: by Lalit Mcmahon MD (Quantity not on file) Lead Heart [employer] [id number] / [id number] / Procedures Procedure Name Priority Date/Time Associated Diagnosis Comments CARDIAC DEVICE CHECK - REMOTE Routine 08/20/2023 4:32 AM EDT from Last 3 Months Results * Cardiac Device Check - Remote (08/20/2023 4:32 AM EDT) Anatomical Region Laterality Modality Other 08/20/2023 4:32 AM EDT Tre Aleman MD IMPLANTABLE CARDIAC DEVICE from Last 3 Months Advance Directives * Attempt Cardiopulmonary Resuscitation - Inpatient (Latest Code Status on File) Date Activated Date Inactivated Comments 07/23/2022 4:30 PM 07/24/2022 12:32 PM Question Answer Comments Code Status decision made by: Patient Care Teams Developer Programmer Relationship Specialty Start Date End Date Lolly Oliveira MD [address] [place] [address] PCP - General 07/17/13
--- OUTSIDE RECORDS SUMMARY | 2023-10-13 11:50 | XMS_ITS | Encounter Summary ---
Author Organization [facility] Address [facility] [place] [address] Care Team Providers Care Digital Court Reporter Name Role Phone Lolly Oliveira MD Primary Care Provider [phone] Reason for Visit * Auth/Cert (Routine) Specialty Diagnoses / Procedures Referred By Contac t Referred To Contact Diagnoses Left bundle-branch block, unspecified Other cardiomyopathies Left bundle branch block [I44.7]Nonischemic cardiomyopathy [I42.8] Procedures PRG CATH PLMT LEFT HEART CATH & ARTS W/INJ & ANGIO IMG S&I ELECTROPHYSIOLOGY PROCEDURE Lalit Mcmahon MD [facility] [place] [address] [facility] Referral ID Status Reason Start Date Expiration Date Visits Re quested Visits Authorized [id number] 1 1 Encounter Details Date Type Department Care Team (Late st Contact Info) Description 07/23/2022 1:08 PM EDT Anesthesia Event [place] [address] Monae Gonzalez MD [facility] [place] [address] Maria Elena Snyder CRNA [facility] [place] [address] Anesthesia Record Procedure Summary Procedure Name Responsible Anesthesiologist Anesthesia Start Time Anesthesia Stop Time ELECTROPHYSIOLOGY PROCEDURE (Left) Monae Gonzalez MD 07/23/22 1308 07/23/22 1633 Events Date Time Event Comment 07/23/2022 1254 1307 AN Verify 1308 Start 1308 An Start Data 1332 An Induction 1336 An Intubation 1336 Anesthesia Ready 1342 IV Start 1418 Procedure Start 1511 Break/Relief In I assumed ca re for Break Relief before which we: 1. Identified the patient 2. Identified the responsible provider(s) 3. Reviewed the pertinent medical history 4. Discussed the surgical plan and course 5. Reviewed intra-op anesthesia management and issues during anesthesia 6. Set expectations for the relief (and/or post-procedure) period 7. Allowed opportunity for questions and acknowledgement of understanding SHAKIRA Bryan 1535 Break/Relief Out 1613 Extubation/LMA Out 1620 an stop data 1633 Recovery or ICU Handoff Gely ent care was transferred to the destination unit staff after review of the patient's medical history, current anesthetic/surgical status and plan, according to the Provider Handoff Checklist. 1633 Stop Meds Name Total fentaNYL 100 mcg Propofol 200 mg Rocuronium 50 mg Ondansetron 4 mg Dexamethasone 4 mg Etomidate 10 mg Calcium Chloride 250 mg ceFAZolin (Ancef) 2 g vial a ttach to sodium chloride 0.9% 100 mL Mini-Bag Plus 2 g NORepinephrine INF 256 mcg Sugammadex 200 mg lactated ringers infusion 600 mL * Agents Name O2 Air N2O Sevoflurane (et) O2 Auxiliary Flowmeter 2 * Blood No blood administrations on file. Lines, Drains, and Airways Type Details Placement Removal Incision 07/23/22; 1421; Left ; chest; horizontal; device pocket 07/23/22 1421 by Gina Moss, RN (RETIRED) Peripheral IV Line - Single Lumen 07/23/22; 1307; median cubital vein (antecubital fossa), right; ytas-mdw-sxhaau catheter system; Anatomical Landmarks; 20 gauge; 07/24/22; 0913 07/23/22 1307 by Maria Elena Snyder CRNA 07/24/22 0913 by Alia Frye RN Arterial Line 07/23/22; 1327; radi al artery, right; 20 gauge; Anatomical Landmarks, Guidewire, Ultrasound Guidance; Yes - US guidance used but Image NOT saved; continuous blood pressure monitoring, frequent blood gas measurement; Dominique Sen MD; Sterile Prep, Sterile Gloves; 2; radial artery, left; 07/23/22; 1730 07/23/22 1327 by Maria Elena Snyder CRNA 07/23/22 1730 by Kannan Rodgers, RN ETT Mask Ventilation: Adjunct (2); ETT Type: Cuffed, Oral; ETT Size: 7 mm; Mac Blade: 3; Notes: Asleep, Pre-O2; Attempts: 1; Laryngoscopy Grade: 1; ETT Placement Verified By: Auscultation, Visual, Capnometry; Secured at Teeth: 21 cm; Inserted by: sruthi snyder crna; Removal Date: 07/23/22; Removal Time: 16107/23/22 1336 by Maria Elena Snyder CRNA 07/23/22 1613 by Maria Elena Snyder CRNA (RETIRED) Peripheral IV Line - Single Lumen 07/23/22; 1343; metacarpal vein (top of hand), left; ylpp-ojv-xneowo catheter system; Anatomical Landmarks; US Not Used; 22 gauge; 07/24/22; 0913 07/23/22 1343 by Maria Elena Snyder CRNA 07/24/22 0913 by Alia Frye RN documented in this encounter Social History Tobacco Use Types Packs/Day Years [...] on file documented as of this encounter OR Notes * Anesthesia Postprocedure Evaluation - Monae Gonzalez MD - 07/23/2022 5:03 PM EDT Department of Anesthesiology Post-procedure Note Patient: Luna Mott Procedure Summary Date: 07/23/22 Room / Location: [facility] A-LAB ROOM 3 / [facility] EP LABS Anesthesia Start: 1308 Anesthesia Stop: 1633 Procedure: ELECTROPHYSIOLOGY PROCEDURE (Left) Diagnosis: Left bundle branch block Nonischemic cardiomyopathy (Left bundle branch block [I44.7]Nonischemic cardiomyopathy [I42.8]) Providers: Lalit Mcmahon MD Responsible Provider: Monae Gonzalez MD Anesthesia Type: general ASA Status: 4 All Anesthesia Providers: Anesthesiologist: Monae Gonzalez MD; Dominique Sen MD PRECISION OPTICAL GOODS WORKER: Maria Elena Snyder CRNA Vitals Value Taken Time BP 131/46 07/23/22 1700 Temp 36.7 ??C (98.1 ??F) 07/23/22 1627 Pulse 67 07/23/22 1703 Resp 14 07/23/22 1703 SpO2 98 % 07/23/22 1703 Pain Level Vitals shown include unvalidated device data. Patient Location: PACU/[facility] Level of Consciousness: Conscious but Sleepy Pain Management: Satisfactory Analgesia PONV: None Cardiovascular Status: At Baseline Respiratory Status: Supplemental O2 (NC or FM) Postoperative Fluid Status: Possible Anesthetic Complications: NONE apparent at time of evaluation Final Primary Anesthesia Type: General (The anesthetic type performed was the same as planned.) Comments: * Anesthesia Preprocedure Evaluation - Dominique Sen MD - 07/23/2022 9:39 AM EDT Pre-Anesthesia Evaluation for: Luna Mott a 71 y.o. female. Procedure(s): ELECTROPHYSIOLOGY PROCEDURE Patient Active Problem List Diagnosis Date Noted ??? Dermatofibroma 11/23/2014 ??? Nevus 11/23/2014 ??? Solar lentigo 11/23/2014 History reviewed. No pertinent past medical history. History reviewed. No pertinent surgical history. Social History Tobacco Use ??? Smoking status: Never ??? Smokeless tobacco: Not on file Substance Use Topics ??? Alcohol use: Not on file Social History Substance and Sexual Activity Drug Use Not on file Allergies Allergen Reactions ??? Sulfa (Sulfonamide Antibiotics) Medications: MAR and/or home medications have been reviewed. Physical Exam: Preprocedure Vitals Current as of 07/23/22 0939 No BP, pulse, respiration, SpO2, or temperature recorded. Height: Weight: BMI: IBW: Airway Assessment: Mallampati: III TM distance: >3 FB Neck ROM: full Cardiovascular Assessment: system normal Pulmonary Assessment: unlabored breathing pulmonary exam normal Dental Assessment: - normal exam Misc Assessment: Patient is wearing No contact(s). IV access: Peripheral line Last Filed Perioperative Cognitive Screening None Anesthesia Plan: ASA 4 general, with a(n) intravenous induction 71 yo female with PMHx significant for, but not limited to, h/o LBBB and Nonischemic CM (EF 15-20%)who presents for LUSTER APPLICATOR-D. No prior anesthetic records. Pt states that she has been able to ambulate for outdoor walks withoutissue, and is participating in regular exercise. Pt denies increased LE edema on the current medication regimen. ECHO 04/30: EF 15-20%, moderate MR Plan: GA with ETT. Standard ASA monitors, arterial line. Risks were discussed at length, and all questions and concerns were addressed. Consent was obtained, and the appropriate paperwork was placed in the patient's chart. Region - Other Informed Consent: Anesthetic plan and risks discussed with patient and daughter/son. Use of blood products discussed with daughter/son and patient who. Plan discussed with PRECISION OPTICAL GOODS WORKER. Anesthesia Screening documented in this encounter Plan of Treatment Upcoming Encounters Date Type Department Care Team (Late st Contact Info) Description 10/18/2023 10:00 AM EDT Hospital Encounter Non-In[place] [address] Arrived documented as of this encounter Visit Diagnoses Not on filedocumented in this encounter Administered Medications Inactive Administered Medications - up to 3 most recent administrations Medication Order MAR Action Action Date Dose Rate Site calcium chloride 10% (100 mg/mL) injection Intravenous, PRN, Starting on Myra 07/23/22 at 1332, Until Myra 07/23/22 at 1633, Anesthesia Intra-op, Routine Given 07/23/2022 1:32 PM EDT 250 mg ceFAZolin (Ancef) 2 g vial attach to sodium chloride 0.9% 100 mL Mini-Bag Plus 2 g, Intravenous, ONCE, 1 dose, On Myra 07/23/22 at 1245, Administer over 30 Minutes, For use in the electrophysiology lab (EP lab) only with direct provider supervision and verbal order., EP (Intra-Procedure), Indication for (Active or Suspected): Prophylaxis New Bag 07/23/2022 1:38 PM EDT 2 g dexAMETHasone (Decadron) injection Intravenous, PRN, Starting on Myra 07/23/22 at 1400, Until Myra 07/23/22 at 1633, Anesthesia Intra-op, Routine Given 07/23/2022 2:00 PM EDT 4 mg etomidate (Amidate) (2 mg/mL) injection Intravenous, PRN, Starting on Myra 07/23/22 at 1332, Until Myra 07/23/22 at 1633, Anesthesia Intra-op, Routine Given 07/23/2022 1:32 PM EDT 10 mg fentaNYL (pf) (50 mcg/mL) multi-dose injection Intravenous, PRN, Starting on Myra 07/23/22 at 1327, Until Myra 07/23/22 at 1633, Anesthesia Intra-op, Routine Given 07/23/2022 1:35 PM EDT 50 mcg Given 07/23/2022 1:27 PM EDT 50 mcg lactated ringers infusion 1,000 mL, at 100 mL/hr, Intravenous, CONTINUOUS, Starting on Myra 07/23/22 at 1245, Until Myra 07/23/22 at 1646, Day of Surgery (Day of Procedure) New Bag 07/23/2022 1:07 PM EDT NORepinephrine (Levophed) (16 mcg/mL) in dextrose 5% 250 mL infusion Intravenous, CONTINUOUS PRN, Starting on Myra 07/23/22 at 1343, Until Myra 07/23/22 at 1633, Anesthesia Intra-op, Routine Restarted 07/23/2022 3:50 PM EDT 1 mcg/min 3.75 mL/hr Rate/Dose Change 07/23/2022 3:39 PM EDT 1 mcg/min 3.75 mL /hr Rate/Dose Change 07/23/2022 3:02 PM EDT 2 mcg/min 7.5 mL/ hr ondansetron (pf) (Zofran) (2 mg/mL) injection Intravenous, PRN, Starting on Myra 07/23/22 at 1539, Until Myra 07/23/22 at 1633, Anesthesia Intra-op, Routine Given 07/23/2022 3:39 PM EDT 4 mg propofoL (Diprivan) 10 mg/mL bolus injection (Anesthesia) Intravenous, PRN, Starting on Myra 07/23/22 at 1332, Until Myra 07/23/22 at 1633, Anesthesia Intra-op Given 07/23/2022 3:58 PM EDT 10 mg Given 07/23/2022 3:44 PM EDT 20 mg Given 07/23/2022 3:21 PM EDT 20 mg rocuronium (Zemuron) (10 mg/mL) multi-dose injection Intravenous, PRN, Starting on Myra 07/23/22 at 1333, Until Myra 07/23/22 at 1633, Anesthesia Intra-op, Routine Given 07/23/2022 1:33 PM EDT 50 mg sugammadex (Bridion) 100 mg/mL injection Intravenous, PRN, Starting on Myra 07/23/22 at 1549, Until Myra 07/23/22 at 1633, Anesthesia Intra-op, Routine Given 07/23/2022 3:49 PM EDT 200 mg documented in this encounter Care Teams Digital Court Reporter Relationship Specialty Start Date End Date Lolly Oliveira MD [address] [place] [address] PCP - General 07/17/13 documented as of this encounter
--- OUTSIDE RECORDS SUMMARY | 2023-10-13 11:50 | XMS_ITS | Encounter Summary ---
Author Organization [facility] Address [facility] [place] [address] Care Team Providers Care Facility Assistant Name Role Phone Lolly Oliveira MD Primary Care Provider [phone] Encounter Details Date Type Department Care Team (Late st Contact Info) Description 05/03/2023 Telephone Cardiology at [address] [phone] Lalit Mcmahon MD [facility] [address] Social History Tobacco Use Types Packs/Day Years Used Date Smoking Tobacco: Never Alcohol Use Standard Drinks/Week Comments Not Currently 0 (1 standard drink = 0.6 oz pur e alcohol) [facility] Inpatient Questions Answer Date Recorded Does [...] encounter Miscellaneous Notes * Telephone Encounter - Lalit Mcmahon MD - 05/03/2023 6:04 PM EST I spoke with Ms. Mott to relay her echo results that show normalized LVEF. She appreciated the call. Lalit Mcmahon MD [facility] Cardiac Electrophysiology 05/03/2023 6:04 PM documented in this encounter Plan of Treatment Upcoming Encounters Date Type Department Care Team (Late st Contact Info) Description 10/18/2023 10:00 AM EDT Hospital Encounter Non-[place]vasive [place] [address] Arrived documented as of this encounter Visit Diagnoses Not on filedocumented in this encounter Care Teams Facility Assistant Relationship Specialty Start Date End Date Lolly Oliveira MD [address] [place] [address] PCP - General 07/17/13 documented as of this encounter
--- OUTSIDE RECORDS SUMMARY | 2023-10-13 11:50 | XMS_ITS | Encounter Summary ---
Author Organization [facility] Address [place] [address] Care Team Providers Care Commercial Portfolio Manager Name Role Phone Lolly Oliveira MD Primary Care Provider [phone] Encounter Details Date Type Department Care Team (Late st Contact Info) Description 07/16/2022 Telephone Cardiology at [address] [phone] Lalit Mcmahon MD [facility] [place] [address] Social History Tobacco Use Types Packs/Day Years Used Date Smoking Tobacco: Never Sex and Gender Information Value Date Recorded Sex Assigned at Not on file Gender Identity Not on file Sexual Orientation Not on file documented as of this encounter Miscellaneous Notes * Telephone Encounter - Lalit Mcmahon MD - 07/16/2022 8:51 AM EDT I spoke with Ms. Mott this week to relay her MRI results. These show reduced LVEF at 31%. There is no scar or other tell-tale abnormality found to explain her nonischemic cardiomyopathy. She is scheduled for LUBRICATING SPECIALIST-D implantation next week and looks forward to the procedure. We will see each other next week. Lalit Mcmahon MD [facility] Cardiac Electrophysiology 07/16/2022 8:52 AM documented in this encounter Plan of Treatment Upcoming Encounters Date Type Department Care Team (Late st Contact Info) Description 10/18/2023 10:00 AM EDT Hospital Encounter [place] [address] Arrived documented as of this encounter Visit Diagnoses Not on filedocumented in this encounter Care Teams Commercial Portfolio Manager Relationship Specialty Start Date End Date Lolly Oliveira MD [address] [place] [address] PCP - General 07/17/13 documented as of this encounter
--- OUTSIDE RECORDS SUMMARY | 2023-10-13 11:50 | XMS_ITS | Encounter Summary ---
[place] [address] Care Team Providers Care Weir Fisherman Name Role Phone Lolly Oliveira MD Primary Care Provider [phone] Encounter Details Date Type Department Care Team (Latest Contact Info) Description 04/09/2022 Travel Social History Tobacco Use Types Packs/Day [...] AM EDT Hospital Encounter [place] [phone] Arrived documented as of this encounter Visit Diagnoses Not on filedocumented in this encounter Care Teams Weir Fisherman Relationship Specialty Start Date End Date Lolly Oliveira MD [address] [place], [place] [address] PCP - General 07/17/13 documented as of this encounter
--- OUTSIDE RECORDS SUMMARY | 2023-10-13 11:50 | XMS_ITS | Encounter Summary ---
Author Organization [facility] [place] [address] Care Team Providers Care Anatomy Teacher Name Role Phone Lolly Oliveira MD Primary Care Provider [phone] Encounter Details Date Type Department Care Team (Latest Contact Info) Description 07/19/2023 Travel Social History Tobacco Use Types Packs/Day [...] AM EDT Hospital Encounter Non-Invasive [place] [address] Arrived documented as of this encounter Visit Diagnoses Not on filedocumented in this encounter Care Teams Anatomy Teacher Relationship Specialty Start Date End Date Lolly Oliveira MD [address] [place] [address] PCP - General 07/17/13 documented as of this encounter
--- OUTSIDE RECORDS SUMMARY | 2023-10-13 11:50 | XMS_ITS | Encounter Summary ---
Author Organization [place] [address] Care Team Providers Care Floor Specialist Name Role Phone Lolly Oliveira MD Primary Care Provider Encounter Details Date Type Department Care Team (Latest Contact Info) Description 10/23/2022 10:00 AM EDT - 10/23/2022 11:59 PM EDT Hospital Encounter Non-Invasive [place] [address] Discharge Disposition: Home Social History Tobacco Use [...] with spacer fluticasone propionate (Flonase) 50 mcg/actuation [place], Suspension 1 spray by Each Nare route [...] AM EDT Hospital Encounter Non-Invasive [place] [address] Arrived documented as of this encounter Procedures Procedure Name Priority Date/Time Associated Diagnosis Comments PRO ICD INTERROGATION REMOTE UP TO 90 DAYS Routine 09/03/2022 4:31 AM EDT documented in this encounter Results * Cardiac Device Check - Remote (09/03/2022 4:31 AM EDT) Anatomical Region Laterality Modality Other 09/03/2022 4:31 AM EDT Lalit Mcmahon MD IMPLANTABLE CARDIAC DEVICE documented in this encounter Visit Diagnoses Not on filedocumented in this encounter Care Teams Floor Specialist Relationship Specialty Start Date End Date Lolly Oliveira MD [address] [place] [address] PCP - General 07/17/13 documented as of this encounter
--- OUTSIDE RECORDS SUMMARY | 2023-10-13 11:50 | XMS_ITS | Encounter Summary ---
Author Organization [facility] [place] [address] Care Team Providers Care Environmental Health Inspector Name Role Phone Lolly Oliveira MD Primary Care Provider [phone] Encounter Details Date Type Department Care Team (Late st Contact Info) Description 03/15/2023 Telephone Cardiology at [address] [phone] Saranya Ma Social History Tobacco Use Types Packs/Day Years Used Date Smoking Tobacco: Never Alcohol Use Standard Drinks/Week Comments Not Currently 0 (1 standard drink = 0.6 oz pur e alcohol) [facility] Inpatient Questions Answer Date Recorded [...] encounter Miscellaneous Notes * Telephone Encounter - Saranya Ma - 03/15/2023 9:41 AM EST Call from pt asking if Dr. Mcmahon would like her to have an echo done at [facility] prior to her appt withdcm there on 05/12/23. Message sent to Dr. Mcmahon asking him to put order in if he would like her to have this done. Saranya Ma Sr. Clinical Procedure [place]/Emergency Registrar documented in this encounter Plan of Treatment Upcoming Encounters Date Type Department Care Team (Late st Contact Info) Description 10/18/2023 10:00 AM EDT Hospital Encounter Non-[place] [address] Arrived documented as of this encounter Visit Diagnoses Not on filedocumented in this encounter Care Teams Environmental Health Inspector Relationship Specialty Start Date End Date Lolly Oliveira MD [address] [place] [address] PCP - General 07/17/13 documented as of this encounter
--- OUTSIDE RECORDS SUMMARY | 2023-10-13 11:50 | XMS_ITS | Encounter Summary ---
Author Organization [facility] [place] [address] Care Team Providers Care Jig Bore Operator Name Role Phone Lolly Oliveira MD Primary Care Provider [phone] Encounter Details Date Type Department Care Team (Latest Contact Info) Description 01/21/2023 10:00 AM EST - 01/21/2023 11:59 PM EST Hospital Encounter [place] [phone] Discharge Disposition: Home Social History Tobacco Use [...] with spacer fluticasone propionate (Flonase) 50 mcg/actuation [place], Suspension 1 spray by Each Nare route [...] AM EDT Hospital Encounter Non[place] [address] Arrived documented as of this encounter Procedures Procedure Name Priority Date/Time Associated Diagnosis Comments PRO ICD INTERROGATION REMOTE UP TO 90 DAYS Routine 11/23/2022 4:31 AM EDT documented in this encounter Results * Cardiac Device Check - Remote (11/23/2022 4:31 AM EDT) Anatomical Region Laterality Modality Other 11/23/2022 4:31 AM EDT Lalit Mcmahon MD IMPLANTABLE CARDIAC DEVICE documented in this encounter Visit Diagnoses Not on filedocumented in this encounter Care Teams Jig Bore Operator Relationship Specialty Start Date End Date Lolly Oliveira MD [address] [place] [address] PCP - General 07/17/13 documented as of this encounter
--- OUTSIDE RECORDS SUMMARY | 2023-10-13 11:50 | XMS_ITS | Encounter Summary ---
Author Organization [facility] [place] [address] Care Team Providers Care Psychologist Clinical Name Role Phone Lolly Oliveira MD Primary Care Provider [phone] Encounter Details Date Type Department Care Team (Latest Contact Info) Description 07/20/2023 10:00 AM EDT - 07/20/2023 11:59 PM EDT Hospital Encounter Non-[place] [phone] Discharge Disposition: Home Social History Tobacco Use [...] 50 mcg (2,000 unit) Capsule daily. 04/20/2022 potassium chloride ER (Klor-Con, K-Tab) 10 mEq ER tablet Take 1 tablet by mouth Daily at Noon. 06/07/2023 clobetasoL (Temovate) 0.05 % Cream Apply to areas of psoriasis twice daily as needed 45 g 3 05/18/2023 metoprolol succinate XL (Toprol-XL) 50 mg ER 24 hr tabletIndications:Nonisch emic cardiomyopathy Take 1 tablet by mouth nightly. [...] with spacer fluticasone propionate (Flonase) 50 mcg/actuation [place], Suspension 1 spray by Each Nare route daily as needed. documented as of this encounter Plan of Treatment Upcoming Encounters Date Type Department Care Team (Late st Contact Info) Description 10/18/2023 10:00 AM EDT Hospital Encounter Non-[place] [address] Arrived documented as of this encounter Procedures Procedure Name Priority Date/Time Associated Diagnosis Comments PRO ICD INTERROGATION REMOTE UP TO 90 DAYS Routine 05/26/2023 4:31 AM EDT documented in this encounter Results * Cardiac Device Check - Remote (05/26/2023 4:31 AM EDT) Anatomical Region Laterality Modality Other 05/26/2023 4:31 AM EDT Meliza Heath MD IMPLANTABLE CARDIAC DEVICE documented in this encounter Visit Diagnoses Not on filedocumented in this encounter Care Teams Psychologist Clinical Relationship Specialty Start Date End Date Lolly Oliveira MD [address] [place] [address] PCP - General 5/12/14 documented as of this encounter
--- OUTSIDE RECORDS SUMMARY | 2023-10-13 11:50 | XMS_ITS | Encounter Summary ---
Author Organization [facility] [place] [address] Care Team Providers Care Printing Plate Clerk Name Role Phone Lolly Oliveira MD Primary Care Provider [phone] Reason for Visit * Auth/Cert (Routine) Specialty Diagnoses / Procedures Referred By Contac t Referred To Contact Diagnoses Left bundle-branch block, unspecified Other cardiomyopathies Left bundle branch block [I44.7]Nonischemic cardiomyopathy [I42.8] Procedures PRG CATH PLMT LEFT HEART CATH & ARTS W/INJ & ANGIO IMG S&I ELECTROPHYSIOLOGY PROCEDURE Lalit Mcmahon MD [facility] [place] [address] [facility] Referral ID Status Reason Start Date Expiration Date Visits Re quested Visits Authorized [id number] 1 1 Encounter Details Date Type Department Care Team (Late st Contact Info) Description 07/23/2022 1:00 PM EDT - 07/23/2022 5:30 PM EDT Surgery [place] [address] Lalit Mcmahon MD [facility] [place] [address] ELECTROPHYSIOLOGY PROCEDURE Social History Tobacco Use Types Packs/Day Years Used Date Smoking Tobacco: Never Tobacco Cessation:Counseling Given: Not Answered Alcohol Use Standard Drinks/Week Comments Not Currently 0 (1 standard drink = 0.6 oz pur e alcohol) [facility] Inpatient Questions Answer Date Recorded Does [...] on file documented as of this encounter Last Filed Vital Signs Vital Sign Reading Time Taken Comments Blood Pressure 123/60 07/23/2022 5:15 PM EDT Pulse 72 07/23/2022 5:30 PM EDT Temperature 36.2 ??C (97.2 ??F) 07/23/2022 5:30 PM ED T Respiratory Rate 10 07/23/2022 5:15 PM EDT Oxygen Saturation 96% 07/23/2022 5:30 PM EDT Inhaled Oxygen Concentration - - Weight 94.7 kg (208 lb 12.8 oz) 023 12:23 PM EDT Height - - Body Mass Index 36.99 05/11/2022 11:01 AM EST documented in this encounter Discharge Summaries * Lalit Mcmahon MD - 07/24/2022 9:48 AM EDT Cardiac Electrophysiology Discharge Summary Patient Name: Luna Mott Patient Age: 71 y.o. Language: Malaysian Race: White Ethnicity: Not nor Admit date: 07/23/2022 Discharge date and time: 07/24/22 Attending Physician: Lalit Mcmahon MD Discharge Physician: Lalit Mcmahon MD Follow-up Recommendations for Providers: - s/p FURNITURE PAINTER-D implant - post implant QRS 130 ms - reviewed post-implant instructions - no medication changes - Follow up in device clinic for wound/device check in ~10 days ([facility]) Inpatient Provider Contact Information: Cardiac Electrophysiology - Discharge Diagnoses (Hospital Problems) and Secondary Diagnoses (Chronic Problems): Active Hospital Problems Diagnosis ??? HFrEF (heart failure with reduced ejection fraction) Resolved Hospital Problems No resolved problems to display. Active Non-Hospital Problems Diagnosis ??? Dermatofibroma ??? Nevus ??? Solar lentigo Operations/Major Procedures: 07/23/22: [facility] FURNITURE PAINTER-D implant History of Presentation: 71 y.o. female with a history of HFrEF, LBBB, QRS >150, NYHA II who is POD#1 of FURNITURE PAINTER-D implant ([employer]). Hospital Course: Elective admission for FURNITURE PAINTER-D implant Admitted post-implant for pain management, telemetry monitoring, evaluation of their medical condition, POD#1 chest xray, and POD#1 device check and parameter modification. Vital Signs at Discharge: BP: 129/53, Heart Rate: 60, Temp: 36.5 ??C (97.7 ??F), Resp: 16, Weight: 94.7 kg (208 lb 12.8 oz) (07/23/22 1223) Functional and Cognitive Status: Stable Admission Diagnoses: HFrEF (heart failure with reduced ejection fraction) [I50.20] Discharge Diagnoses: HFrEF (heart failure with reduced ejection fraction) [I50.20] FURNITURE PAINTER-D implant Admission Condition: good Indication for Admission: Medical necessity/monitoring post-procedure Consults: none Important Studies and Lab Data: Lab Results Component Value Date WBC 6.6 07/23/2022 HGB 13.7 07/23/2022 HCT 42.5 07/23/2022 PLATELET 193 07/23/2022 Recent Labs 07/23/22 1155 INR 1.0 Lab Results Component Value Date NA 141 07/23/2022 K 4.8 07/23/2022 CL 106 07/23/2022 BUN 23 (H) 07/23/2022 CREATININE 1.07 07/23/2022 Treatments: CXR: 07/24/22: IMPRESSION No acute cardiopulmonary process. Specifically no pneumothorax. Discharge Exam: Please see physical exam in day of discharge progress note. No changes. Discharge Conditions/Prognosis: good Discharge to: home Updated Allergies/ADRs: Allergies Allergen Reactions ??? Sulfa (Sulfonamide Antibiotics) Immunizations Given this Hospitalization: There is no immunization history on file for this patient. Discharge Medications: Your Medications Continued medications, unchanged Dose Details albuteroL 90 mcg/actuation HFA Aerosol Inhaler Inhale 2 puffs into the lungs every 6 hours as needed for Wheezing. Use with spacer 2 puff Refills: 0 aspirin EC 81 mg EC (DR) tablet Take 81 mg by mouth daily. 81 mg Refills: 0 cholecalciferol (Vitamin D3) 50 mcg (2,000 unit) Capsule Take by mouth daily. Refills: 0 clobetasoL 0.05 % Cream Commonly known as: Temovate Apply to residual areas of psoriasis on the shins twice daily for six weeks Quantity: 45 g Refills: 3 fluticasone propionate 50 mcg/actuation [place], Suspension Commonly known as: Flonase 1 spray by Each Nare route daily as needed. 1 spray Refills: 0 furosemide 20 mg tablet Commonly known as: Lasix Take 20 mg by mouth daily. 20 mg Refills: 0 Jardiance 10 mg tablet TAKE 1 TABLET BY MOUTH ONCE DAILY FOR HF Generic drug: empagliflozin Refills: 0 Klor-Con M10 10 mEq ER micro-encapsulated crystal tablet Take 10 mEq by mouth daily. Generic drug: potassium chloride ER 10 mEq Refills: 0 lisinopriL 20 mg tablet Commonly known as: Zestril Take 20 mg by mouth daily. 20 mg Refills: 0 metoprolol succinate XL 25 mg ER 24 hr tablet Commonly known as: Toprol-XL Take 25 mg by mouth nightly. 25 mg Refills: 0 rosuvastatin 5 mg tablet Commonly known as: Crestor Take 5 mg by mouth nightly. 5 mg Refills: 0 turmeric-turmeric root extract 450-50 mg Capsule Take 1 tablet by mouth daily. 1 tablet Refills: 0 Smoking Status at Discharge: Social History Tobacco Use Smoking Status Never Smokeless Tobacco Not on file Instructions Given to Patient at Discharge: Patient Instructions FINAL ICD/PACEMAKER RECOMMENDATIONS: 1. Standard post implant discharge instructions (see below): 2. Medications as listed above. ?? You may use ice packs over the incision. Make sure to use a cloth winder machine operator (such as a towel) in between the ice pack and the bare skin and that it stays DRY. 3. Follow up in pacemaker clinic in 10 days for a wound check and device check. DEVICE CLINIC 1. You will be scheduled for a ~10 day wound check in the Device Clinic for: ?? Incision check ?? Device interrogation ?? Review of remote follow up and set up of home monitor 2. Your device will be checked every 3 months (either in clinic or by remote). 3. Prior to discharge, you will be given a home monitor so that your device can send clinical data to the device clinic nurses. If you are unable to set this up at home prior to your wound check, we will review this at the time of your appointment NOTE: The device data we review from your home monitor is comparable to an in- office appointment. Therefore, your insurance company will be billed for review of your data. Depending on your coverage,you may be responsible for a portion of his charge. We recommend that you contact your insurance carrier for more details about your particular coverage. WOUND CARE FOR YOUR INCISION: Your wound will usually heal in 7-10 days. Your wound may be tender, it may appear slightly red andbumpy and there may be dry, crusty scabbing. These are all normal. How to Care for your Incision: - Either you or someone with you needs to look at the wound every day. - Report any signs of infection immediately: ?? Drainage ?? Swelling ?? Warmth ?? Increased pain ?? Fevers/chills - Call if you are concerned about infection or the edges of the wound separate - A needle should not be put into the wound area because this can damage the device. ?? You may need to remind your healthcare provider of this concern - There are sutures inside the incision that will dissolve on their own - Do not scratch or rub the wound - Do not apply creams, lotions, or ointments to the incision until is completely healed. - You may cover the wound with gauze if it rubs on clothing and causes discomfort - Protect your wound from injury until the skin has had sufficient time to heal - Do not shower until PM 07/25/22 - While in the shower, turn your back to the water nozzle so you avoid direct water pressure on thewound. Continue this for 7-10 days. - After 48 hours, you may wash the wound gently with soap and water (unless there is DermaBond on the incision - see below) - Do not submerge the incision (bathtubs, hot tubs, or swimming) for at least two weeks Your incision has been covered with a Mepilex dressing. - This dressing will stay on for 7 days. - Please remove the dressing on: 07/25/22 - If the edges pull up substantially or fluid gets underneath the Mepilex dressing, remove it sooner - Once removed, you may notice some grayish discoloration. This is normal. Your incision has been closed with: SteriStrips - These are thin adhesive strips placed over your incision to help it heal. - Leave them in place until they fall off (approximately 10-14 days) - Do not scratch, rub, or pick at them. This may pull at your incision before it is completely healed, which can increase the risk of infection. CALL IMMEDIATELY: If you develop chest pain, shortness of breath, bleeding, discharge from the incision, opening of the incision and/or fever/temperature >100 degrees F. The office scheduling phone number is [phone]. ARM MOVEMENT RESTRICTIONS POST-IMPLANT - Do not raise your elbow on [...] for a heavy object) for 6 weeks If you have any questions or concerns about this product, please call the Cardiac ElectrophysiologyTriage Nurse at [phone], option 3. General Instructions None Discharge References/Attachments None Lalit Mcmahon MD S Cardiac Electrophysiology 07/24/2022 12:33 PM documented in this encounter Discharge Instructions * Patient Instructions* Fadi Nunez MD - 07/24/2022 8:10 AM EDT FINAL ICD/PACEMAKER RECOMMENDATIONS: 1. Standard post implant discharge instructions (see below): 2. Medications as listed above. You may use ice packs over the incision. Make sure to use a cloth winder machine operator (such as a towel) in between the ice pack and the bare skin and that it stays DRY. 3. Follow up in pacemaker clinic in 10 days for a wound check and device check. DEVICE CLINIC 1. You will be scheduled for a ~10 day wound check in the Device Clinic for: ?? Incision check ?? Device interrogation ?? Review of remote follow up and set up of home monitor 2. Your device will be checked every 3 months (either in clinic or by remote). 3. Prior to discharge, you will be given a home monitor so that your device can send clinical data to the device clinic nurses. If you are unable to set this up at home prior to your wound check, we will review this at the time of your appointment NOTE: The device data we review from your home monitor is comparable to an in- office appointment. Therefore, your insurance company will be billed for review of your data. Depending on your coverage,you may be responsible for a portion of his charge. We recommend that you contact your insurance carrier for more details about your particular coverage. WOUND CARE FOR YOUR INCISION: Your wound will usually heal in 7-10 days. Your wound may be tender, it may appear slightly red andbumpy and there may be dry, crusty scabbing. These are all normal. How to Care for your Incision: - Either you or someone with you needs to look at the wound every day. - Report any signs of infection immediately: Drainage Swelling Warmth Increased pain Fevers/chills - Call if you are concerned about infection or the edges of the wound separate - A needle should not be put into the wound area because this can damage the device. You may need to remind your healthcare provider of this concern - There are sutures inside the incision that will dissolve on their own - Do not scratch or rub the wound - Do not apply creams, lotions, or ointments to the incision until is completely healed. - You may cover the wound with gauze if it rubs on clothing and causes discomfort - Protect your wound from injury until the skin has had sufficient time to heal - Do not shower until PM 07/25/22 - While in the shower, turn your back to the water nozzle so you avoid direct water pressure on thewound. Continue this for 7-10 days. - After 48 hours, you may wash the wound gently with soap and water (unless there is DermaBond on the incision - see below) - Do not submerge the incision (bathtubs, hot tubs, or swimming) for at least two weeks Your incision has been covered with a Mepilex dressing. - This dressing will stay on for 7 days. - Please remove the dressing on: 07/25/22 - If the edges pull up substantially or fluid gets underneath the Mepilex dressing, remove it sooner - Once removed, you may notice some grayish discoloration. This is normal. Your incision has been closed with: SteriStrips - These are thin adhesive strips placed over your incision to help it heal. - Leave them in place until they fall off (approximately 10-14 days) - Do not scratch, rub, or pick at them. This may pull at your incision before it is completely healed, which can increase the risk of infection. CALL IMMEDIATELY: If you develop chest pain, shortness of breath, bleeding, discharge from the incision, opening of the incision and/or fever/temperature >100 degrees F. The office scheduling phone number is [phone]. ARM MOVEMENT RESTRICTIONS POST-IMPLANT - Do not raise your elbow on [...] for a heavy object) for 6 weeks If you have any questions or concerns about this product, please call the Cardiac ElectrophysiologyTriage Nurse at [phone], option 3. documented in this encounter Medications at Time of Discharge [...] with spacer fluticasone propionate (Flonase) 50 mcg/actuation [place], Suspension 1 spray by Each Nare route [...] as of this encounter Progress Notes * Lalit Mcmahon MD - 07/24/2022 8:43 AM EDT Cardiac Electrophysiology Post-Implant Device Interrogation Luna Mott [id number] 07/24/2022 History: Luna Mott is a 71 y.o. female with a history of HFrEF, LBBB, QRS >150, NYHA II who is POD#1 of FURNITURE PAINTER-D implant ([employer]). Overall feels well this morning. Ready to go home. Very tired as she did not sleep well at all last night (boarding in PACU). Device optimization performed, QRS with LV pacing only as programmed yesterday 130 ms. Extending paced AV delay caused widening of QRS. Changed sensed AV delay from 110 to 1130 but otherwise no otherchanges made. Physical Exam: Vitals: 07/24/22 0315 07/24/22 0330 07/24/22 0400 07/24/22 0415 BP: 124/56 123/61 124/55 114/52 BP Location (NBP): Patient Position: Pulse: 60 60 60 60 Resp: Temp: TempSrc: SpO2: 93% 93% 92% 95% Weight: General- No acute distress, laying comfortably in bed. Skin- Pocket incision is CDI. No bleeding onto Mepilex. Lungs- No increased WOB Neuro- A&Ox3 Device Interrogation: Data ?? Director Digital Catalogue Model # Serial # Generator [employer] [id number] Atrial Lead [employer] [id number] RV Lead [employer] [id number] LV Lead [employer] [id number] ?? Diagnostics Pacing Mode: DDD 60-130 Underlying Rhythm: Hooven Atrial Episodes: None Ventricular Episodes: None FINAL PROGRAMMING: Pacing: Mode Lower rate (ppm) Upper rate (ppm) ?? DDD 60 130 VF: Rate (bpm) #Antitachycardia pacing First shock energy (J) ?? 200 Quick convert 41 VT: 170 Monitor only Monitor only ? Battery and Leads Impedances (ohms) Sensing (mV) Thresholds HV RA RV LV RA RV LV RA RV LV 73 [phone] (LVa) 7.7 13.1 >25 0.4V @ 0.4 ms 0.4V @ 0.4 ms 0.5 V @ 1.0 ms POD#1 CXR: All leads in nominal positioning Impression: 71 y.o. female who is s/p FURNITURE PAINTER-D implant for LBBB, NYHA II, HFrEF. - Appropriate device function post-implant - CXR negative for post-implant complications - Changed sensed AV delay from 130 to 110 Plan: 1. Reviewed standard post-implant discharge instructions (see patient instructions) including arm restrictions, wound care, bathing, and driving 2. No medication changes. 3. Follow up in device clinic for wound/device check in ~10 days ([facility]) Fadi Nunez MD 07/24/2022 Pager: [phone] I met with the patient today and independently confirmed the history, physical exam, and testing. Ipersonally reviewed and interpreted the available ECGs and additional cardiac testing (echo), as well as the labs. I agree with the detailed management plan as written in the fellow note today. I discussed this plan with the patient, who is also in agreement. ? Dr. Lalit Mcmahon, electrophysiology attending ([id number]) * Zaria Wright RN - 07/23/2022 8:28 PM EDT 1627- Pt arrived from OR to PACU. VSS. Dressing to L chest CDI. 1730- Pt meets PACU d/c criteria. Will board in PACU overnight. * Delia Vaughan RN - 07/23/2022 4:44 PM EDT 1645 Break coverage for XAVI Enciso. Pt awake/alert and appearing comfortable. VSS. Pt unable to void, bedpan provided without success. Fellow paged for straight cath order. 1715 Updates to primary RN to resume care of pt. Dinner ordered to unit. documented in this encounter H&P Notes * Lalit Mcmahon MD - 07/23/2022 12:28 PM EDT Images from the original note were not included. Clinical Cardiac Electrophysiology Interval History and Physical Exam For Planned Procedure HISTORY OF PRESENT ILLNESS: Luna Mott is a 71 y.o. female with a history of HFrEF, LVEF <30%, NYHA Class II HF, QRS > 150 ms presents for FURNITURE PAINTER-D placement. ROS: Denies recent fevers or chills No syncope No orthopnea No bleeding No neurological changes PHYSICAL EXAM: Vital Signs: Pulse 76 Temp 36.2 ??C (97.2 ??F) (Temporal) Resp 20 Wt 94.7 kg (208 lb 12.8 oz) SpO2 98% BMI 36.99 kg/m?? A&O x 3, calm conversant, no acute distress Lung: normal respiratory effort Heart: regular pulse Chest: no open wound or new rash Ext: LE edema PROBLEM LIST: Patient Active Problem List Diagnosis Code ??? Dermatofibroma D23.9 ??? Nevus D22.9 ??? Solar lentigo L81.4 ALLERGIES: Allergies Allergen Reactions ??? Sulfa (Sulfonamide Antibiotics) MEDICATIONS: Current Facility-Administered Medications Medication Dose Route Frequency Provider Last Rate Last Admin ??? ceFAZolin (Ancef) 2 g vial attach to sodium chloride 0.9% 100 mL Mini-Bag Plus 2 g Intravenous Once Lalit Mcmahon MD ??? sodium chloride 0.9 % (flush) (BD PosiFlush Normal Saline 0.9) flush 5-20 mL 5-20 mL Intravenous Q1 Min PRN Monae Gonzalez MD ??? lidocaine (Xylocaine) 1% (10 mg/mL) injection 3 mg 0.3 mL Subcutaneous Once PRN Monae Gonzalez MD ??? lactated ringers infusion 1,000 mL Intravenous Continuous Monae Gonzalez MD ??? sodium chloride 0.9 % (flush) (BD PosiFlush Normal Saline 0.9) flush 5 mL 5 mL Intravenous [id number] ramos MD ??? sodium chloride 0.9 % (flush) (BD PosiFlush Normal Saline 0.9) flush 5-20 mL 5-20 mL Intravenous Q1 Min PRN Lalit Mcmahon MD ??? lidocaine (Xylocaine) 1% (10 mg/mL) injection 3 mg 0.3 mL Subcutaneous Once PRN Lalit Mcmahon MD ??? ceFAZolin (Ancef) 2 g vial attach to sodium chloride 0.9% 100 mL Mini-Bag Plus 2 g Intravenous Once Lalit Mcmahon MD PAST SURGICAL HISTORY: History reviewed. No pertinent surgical history. LAB VALUES: Laboratory Data: Lab Results Component Value Date WBC 6.6 07/23/2022 HGB 13.7 07/23/2022 HCT 42.5 07/23/2022 MCV 94.4 07/23/2022 No results found for: TSH Lab Results Component Value Date INR 1.0 07/23/2022 ASSESSMENT AND PLAN: Luna Mott is a 71 y.o. female with a history of HFrEF, LVEF <30%, NYHA Class II HF, QRS > 150 ms presents for FURNITURE PAINTER-D placement. Backup would be LBBAP lead. Antibiotics: cefazolin Rationales for, intended benefits and potential risk of planned procedures reviewed. The patient indicated understanding and agreement with the plan. Informed consent signed. Procedure checklist completed. Fadi Nunez MD Cardiac Electrophysiology Fellow [facility] Pager [phone] 07/23/2022 I met with the patient today and independently confirmed the history, physical exam, and testing. Ipersonally reviewed and interpreted the available ECGs and additional cardiac testing (echo), as well as the labs. I agree with the detailed management plan as written in the fellow note today. I discussed this plan with the patient, who is also in agreement. ? Dr. Lalit Mcmahon, electrophysiology attending ([id number]) documented in this encounter Miscellaneous Notes * Brief Op Note - Lalit Mcmahon MD - 07/23/2022 4:04 PM EDT Brief Operative Note Patient Name: Luna Mott : [id number] MR#: [id number] Case Date: 07/23/2022 Surgeon: Surgeon(s) and Role: * Lalit Mcmahon MD - Primary Preoperative diagnosis: Left bundle branch block [I44.7]Nonischemic cardiomyopathy [I42.8] Postoperative diagnosis: s/p successful biventricular ICD implantation Procedure(s) (LRB): ELECTROPHYSIOLOGY PROCEDURE (Left) Anesthesia: General Findings: acceptable ICD function Complications: none Intake: Intraprocedure Crystalloid Total Intake lactated ringers infusion 600.00 mL ceFAZolin (Ancef) 2 g vial attach to sodium chloride 0.9% 100 mL Mini-Bag Plus 100.00 mL Total Intake 700 mL Transfusion No data found in the last 1 encounters. Output: Estimated Blood Loss: Urine Output:: (no urine output recorded) Other Output: (no other output recorded) Drains: none Specimens removed during surgery: None Disposition: aroused from sedation, and taken to the recovery room in a stable condition Condition: doing well without problems Attestation: Lalit Mcmahon MD Case Date: 07/23/2022 I was present and I participated during the entire procedure (does not need to include opening and closing). (Please see the Surgical Encounter Summary for any Implant and Specimen details pertinent to this patient.) Surgical Infection Prevention Bundle Used? N/A documented in this encounter Plan of Treatment Upcoming Encounters Date Type Department Care Team (Late st Contact Info) Description 10/18/2023 10:00 AM EDT Hospital Encounter Non[place] [address] Arrived Scheduled Orders Name Type Priority Associated Diagnoses Orde r Schedule EKG 12 Lead ECG Routine Cardiac resynchronization therapy defibrillator (FURNITURE PAINTER-D) in place One Time for 1 Occurrences starting 07/24/2022 until 07/24/2022 documented as of this encounter Procedures Procedure Name Priority Date/Time Associated Diagnosis Comments EKG 12-LEAD Routine 07/24/2022 8:19 AM EDT Left bundle branch block XR CHEST PA AND LATERAL Routine 07/25/19 6:19 AM EDT ELECTROPHYSIOLOGY PROCEDURE Routine 07/23/2022 1:11 PM EDT Left bundle branch block Nonischemic cardiomyopathy POCT GLUCOSE Routine 07/23/2022 12:54 PM EDT EKG 12-LEAD Routine 07/23/2022 12:33 PM EDT Left bundle branch block BMP W/FASTING GLUCOSE STAT 07/23/2022 11:55 AM EDT HEMOGRAM STAT 07/23/2022 11:55 AM EDT DIFFERENTIAL, AUTOMATED STAT 07/24/19 11:55 AM EDT PROTHROMBIN TIME STAT 07/23/2022 11:5 5 AM EDT CBC (WITH DIFF) STAT 07/23/2022 11:55 AM EDT documented in this encounter Results * EKG 12 Lead (07/24/2022 8:19 AM EDT) Ventricular rate 60 BPM MUSE SYSTEM Atrial Rate 60 BPM MUSE SYSTEM P-R Interval 204 ms MUSE SYSTEM QRS Duration 130 ms MUSE SYSTEM Q-T Interval 522 ms MUSE SYSTEM QTC Calculated (Bezet) 522 ms MUSE SYSTEM Calculated R [place] 78 degrees MUSE SYSTEM Calculated T [place] -71 degrees MUSE SYSTEM INTERPRETATION AV dual-paced rhythm Abnormal ECG When compared with ECG of 23-JUL-2022 12:33, Electronic ventricular pacemaker has replaced Sinus rhythm Confirmed by MD NORTON SALVATORE ([id number]) on 07/24/2022 10:03:44 AM MUSE SYSTEM 07/24/2022 8:19 AM EDT 07/24/2022 10:03 AM EDT Lalit Mcmahon MD ECG ORDERABLES MUSE SYSTEM * XR Chest PA & Lateral (Generic) (07/24/2022 6:19 AM EDT) Anatomical Region Laterality Modality Chest N/A Digital Radiogra phy Impressions 07/24/2022 6:43 AM EDT No acute cardiopulmonary process. Specifically no pneumothorax. Thank you for letting us participate in the care of this patient. ??If you are a health care provider and have any questions regarding this report, please contact the number below. ??For patients who have questions please contact the health healthcare administration internship that requested your imaging first. ? Narrative 07/24/2022 6:43 AM EDT EXAMINATION: XR CHEST PA AND LATERAL (GENERIC) CLINICAL HISTORY: Post CIED implantation, assess for lead placement and rule out pneumothorax TECHNIQUE: PA and lateral views of the chest, 2 images COMPARISON: None FINDINGS: Pulse generator projects over the left chest wall with 3 intracardiac leads projecting over the right atrium, right ventricle and coronary sinus. A EKG attachment point projects over the right upper lobe. No airspace opacity to suggest pneumonia. No pulmonary vascular congestion. No pneumothorax. No pleural effusions. Normal size of the cardiomediastinal silhouette and dima. No acute osseous findings. Procedure Note Kwame Vargas MD - 07/24/2022 EXAMINATION: XR CHEST PA AND LATERAL (GENERIC) CLINICAL HISTORY: Post CIED implantation, assess for lead placement andrule out pneumothorax TECHNIQUE: PA and lateral views of the chest, 2 images COMPARISON: None FINDINGS: Pulse generator projects over the left chest wall with 3 intracardiacleads projecting over the right atrium, right ventricle and coronary sinus. A EKG attachment point projects over the right upper lobe. No airspace opacity to suggest pneumonia. No pulmonary vascularcongestion. No pneumothorax. No pleural effusions. Normal size of the cardiomediastinal silhouette and dima. No acute osseous findings. IMPRESSION No acute cardiopulmonary process. Specifically no pneumothorax. Thank you for letting us participate in the care of this patient. If youare a health care provider and have any questions regarding this report,please contact the number below. For patients who have questions please contactthe health healthcare administration internship that requested your imaging first. Lalit Mcmahon MD IMG DX ORDERABLES * ELECTROPHYSIOLOGY PROCEDURE (07/23/2022 1:11 PM EDT) Anatomical Region Laterality Modality Other Narrative 07/23/2022 4:24 PM EDT Table formatting from the original result was not included. BIVENTRICULAR ICD IMPLANTATION Examination Supervisor: Lalit Mcmahon MD Fellow: Fadi Nunez MD Referring physician: Zamzam Boss MD PATIENT HISTORY: Ms. Mott is a 71 year old woman with a history of left bundle branch block for years and recently discovered, nonischemic cardiomyopathy. Her QRS duration is 176 ms, she has NYHA Class II symptoms despite over three months of guideline directed medical therapy. LVEF has remained depressed, 31% on recent MRI. She presents for implantation of a biventricular ICD system. PROCEDURE: The patient was brought to the Cardiac Electrophysiology laboratory in a post-absorptive, fasting state after receiving 3 scrubs to the implant area. Informed consent was obtained. A peripheral IV was in place. Continuous electrocardiographic, blood pressure, oxygen saturation and carbon dioxide monitoring was initiated. Self-adhesive cardioversion patches were positioned on the chest. Sedation was administered by anesthesiology. The implant site was then prepped and draped in the usual sterile fashion. The implant area was infiltrated with a 50/50 mixture of lidocaine (2%) and bupivicaine (0.5%). An incision was made medial to the left deltopectoral groove and sharp and blunt dissection was used down to the level of the pre-pectoralis fascia. A device pocket was fashioned. Hemostasis was maintained with electrocautery. Axillary venous access was obtained thrice using a micropuncture kit and the modified Seldinger technique. Following sheath placement in the subclavian vein, a single coil defibrillator lead was advanced under fluoroscopic guidance and positioned in the right ventricle where a stable position with adequate sensing and pacing characteristics was obtained. The lead was anchored to the pre-pectoralis fascia using 0 silk, non-absorbable suture. Over the second wire a sheath was advanced into the subclavian vein through which was placed a pacing lead under fluorscopic guidance. The tip of the lead was allowed to dangle in the IVC. ??Next, a curved stylet was then placed in the right atrial lead and its tip placed in the RA in a stable position with adequate sensing and pacing characteristics. The lead was anchored to the pre-pectoralis fascia using 0 silk. Then over the third wire a sheath was advanced into the coronary sinus using various tools (shaped dilators or deflectable electrophysiological catheters). The position of the sheath was confirmed by fluoroscopy. A coronary sinus venogram was performed demonstrating an appropriate lateral branch of the CS in the [place] view. This branch was cannulated with a 0.014 wire. A left ventricular, quadripolar pacing lead was advanced over the wire into this lateral branch. Pacing and sensing characteristics were adequate and there was no diaphragmatic stimulation at full output. The CS sheath was removed and the LV lead sutured to the pre-pectoralis fascia with 0 silk. ??Next, the pocket was flushed with antibiotic solution. The generator was connected to the leads, tested and found to be functioning satisfactorily. The generator was implanted in the pocket and the pocket closed in layers using 2-0, 3-0 and 4-0 absorbable sutures. The skin was closed using a sub-cuticular technique. Steri-strips and a bio-occlusive dressing were applied to the skin. The patient remained hemodynamically stable, tolerated the procedure well and was transferred in stable condition. Dr. Mcmahon was present for and participated in the entire procedure. LEAD AND GENERATOR DATA: Director Digital Catalogue Model # Serial # Generator [employer] [id number] Atrial Lead [employer] [id number] RV Lead [employer] [id number] LV Lead [employer] [id number] PACE/SENSE DATA: Sensed wave (mV) Threshold (V) Impedance (Ohms) Atrium 9.3 0.4 @ 0.4 ms 781 RV 17.1 0.5 @ 0.4 ms 428 LV 17.9 0.6 @ 1 ms 1072 Shock ?? 73 FINAL PROGRAMMING: Pacing: Mode Lower rate (ppm) Upper rate (ppm) DDD 60 130 VF: Rate (bpm) #Antitachycardia pacing First shock energy (J) 200 Quick convert 41 VT: 170 Monitor only Monitor only ? MEDICATION SUMMARY: please refer to anesthesiology documentation Medication 2 g IV cefazolin RADIOLOGY SUMMARY: Total Fluoro time (minutes) 10.9 Dose Area Product (cGycm2) 300 CONCLUSIONS: Successful implantation of a [employer] biventricular ICD for primary prevention and treatment of symptoms related to congestive heart failure. Follow up in EP clinic in 1-2 months. Procedures performed: new ICD system ( cpt 72225-B2); implant LV lead at time of ICD insertion (cpt 26137) I have read, edited and approve of this report: Lalit Mcmahon MD S Cardiac Electrophysiology 07/23/2022 4:22 PM Procedure Note Lalit Mcmahon MD - 07/23/2022 BIVENTRICULAR ICD IMPLANTATION Examination Supervisor: Lalit Mcmahon MD Fellow: Fadi Nunez MD Referring physician: Zamzam Boss MD PATIENT HISTORY: Ms. Mott is a 71 year old woman with a history of leftbundle branch block for years and recently discovered, nonischemiccardiomyopathy. Her QRS duration is 176 ms, she has NYHA Class II symptomsdespite over three months of guideline directed medical therapy. LVEF hasremained depressed, 31% on recent MRI. She presents for implantation of abiventricular ICD system. PROCEDURE: The patient was brought to the Cardiac Electrophysiology laboratory in apost-absorptive, fasting state after receiving 3 scrubs to the implantarea. Informed consent was obtained. A peripheral IV was in place.Continuous electrocardiographic, blood pressure, oxygen saturation andexpired carbon dioxide monitoring was initiated. Self-adhesivecardioversion patches were positioned on the chest. Sedation wasadministered by anesthesiology. The implant site was then prepped anddraped in the usual sterile fashion. The implant area was infiltrated witha 50/50 mixture of lidocaine (2%) and bupivicaine (0.5%). An incision wasmade medial to the left deltopectoral groove and sharp and bluntdissection was used down to the level of the pre-pectoralis fascia. Adevice pocket was fashioned. Hemostasis was maintained withelectrocautery. Axillary venous access was obtained thrice using amicropuncture kit and the modified Seldinger technique. Following sheathplacement in the subclavian vein, a single coil defibrillator lead wasadvanced under fluoroscopic guidance and positioned in the right ventriclewhere a stable position with adequate sensing and pacing characteristicswas obtained. The lead was anchored to the pre-pectoralis fascia using 0silk, non-absorbable suture. Over the second wire a sheath was advancedinto the subclavian vein through which was placed a pacing lead underfluorscopic guidance. The tip of the lead was allowed to dangle in theIVC. Next, a curved stylet was then placed in the right atrial lead andits tip placed in the RA in a stable position with adequate sensing andpacing characteristics. The lead was anchored to the pre-pectoralis fasciausing 0 silk. Then over the third wire a sheath was advanced into the coronary sinususing various tools (shaped dilators or deflectable electrophysiologicalcatheters). The position of the sheath was confirmed by fluoroscopy. Acoronary sinus venogram was performed demonstrating an appropriate lateralbranch of the CS in the [place] view. This branch was cannulated with a 0.014wire. A left ventricular, quadripolar pacing lead was advanced over thewire into this lateral branch. Pacing and sensing characteristics wereadequate and there was no diaphragmatic stimulation at full output. The CSsheath was removed and the LV lead sutured to the pre-pectoralis fasciawith 0 silk. Next, the pocket was flushed with antibiotic solution. Thegenerator was connected to the leads, tested and found to be functioningsatisfactorily. The generator was implanted in the pocket and the pocketclosed in layers using 2-0, 3-0 and 4-0 absorbable sutures. The skin wasclosed using a sub-cuticular technique. Steri-strips and a bio-occlusivedressing were applied to the skin. The patient remained hemodynamicallystable, tolerated the procedure well and was transferred in stablecondition. Dr. Mcmahon was present for and participated in the entireprocedure. LEAD AND GENERATOR DATA: Director Digital Catalogue Model # Serial # Generator [employer] [id number] Atrial Lead [employer] [id number] RV Lead [employer] [id number] LV Lead [employer] [id number] PACE/SENSE DATA: Sensed wave (mV) Threshold (V) Impedance (Ohms) Atrium 9.3 0.4 @ 0.4 ms 781 RV 17.1 0.5 @ 0.4 ms 428 LV 17.9 0.6 @ 1 ms 1072 Shock 73 FINAL PROGRAMMING: Pacing: Mode Lower rate (ppm) Upper rate (ppm) DDD 60 130 VF: Rate (bpm) #Antitachycardia pacing First shock energy (J) 200 Quick convert 41 VT: 170 Monitor only Monitor only MEDICATION SUMMARY: please refer to anesthesiology documentation Medication 2 g IV cefazolin RADIOLOGY SUMMARY: Total Fluoro time (minutes) 10.9 Dose Area Product (cGycm2) 300 CONCLUSIONS: Successful implantation of a [employer] biventricular ICD forprimary prevention and treatment of symptoms related to congestive heartfailure. Follow up in EP clinic in 1-2 months. Procedures performed: new ICD system ( cpt 04141-N2); implant LV lead attime of ICD insertion (cpt 05730) I have read, edited and approve of this report: Lalit Mcmahon MD S Cardiac Electrophysiology 07/23/2022 4:22 PM Lalit Mcmahon MD EP PROCEDURE ORDERAB LES * POCT Glucose (07/23/2022 12:54 PM EDT) [facility] Signature Glucose, POC 83 65 - 199 mg/dL [facility] Comment: Supplemental ranges: <140 mg/dL before meals <180 mg/dL all other times of the day Blood 07/23/2022 12:5 4 PM EDT 07/23/2022 12:54 PM EDT Lalit Mcmahon MD POINT OF CARE TEST O RDERABLES Performing Organization Address City/[facility]/ZIP Co de Phone Number [facility] [place] [address] * EKG 12 Lead (07/23/2022 12:33 PM EDT) Ventricular rate 72 BPM MUSE SYSTEM Atrial Rate 72 BPM MUSE SYSTEM P-R Interval 158 ms MUSE SYSTEM QRS Duration 176 ms MUSE SYSTEM Q-T Interval 458 ms MUSE SYSTEM QTC Calculated (Bezet) 501 ms MUSE SYSTEM Calculated P [place] 34 degrees MUSE SYSTEM Calculated R [place] 12 degrees MUSE SYSTEM Calculated T [place] -173 degrees MUSE SYSTEM INTERPRETATION Normal sinus rhythm Left bundle branch block Abnormal ECG No previous ECGs available Confirmed by MD Salome, Lalit ([id number]) on 07/23/2022 1:19:03 PM MUSE SYSTEM 07/23/2022 12:3 3 PM EDT 07/23/2022 1:19 PM EDT Lalit Mcmahon MD ECG ORDERABLES Performing Organization Address [facility] Co de Phone Number MUSE SYSTEM * Differential, Automated (07/23/2022 11:55 AM EDT) Neutrophil % 62.6 % [facility] Neutrophil Absolute 4.14 1.70 - 6.10 x10(3)/[facility] Lymph % 27.0 % [facility] Lymphocytes Abs 1.8 0.9 - 3.2 x10(3)/[facility] Monocyte % 7.3 % [facility] Monocyte Abs 0.5 0.3 - 0.9 x10(3)/[facility] Eos % 2.3 % [facility] Eosinophils Abs 0.2 0.0 - 0.4 x10(3)/[facility] Basophil % 0.6 % [facility] Baso Absolute 0.0 0.0 - 0.1 x10(3)/[facility] Immature Gran % 0.20 % [facility] Comment: Immature granulocytes(IG's)percentage and absolute count will include metamyelocytes, myelocytes, and promyelocytes. Blood smears from CBCs yielding IG's will be scanned manually for concordance. If this scan disagrees with the automated IG or if promyelocytes are noted, a manual differential will be performed. Immature Gran Absolute 0.01 0.00 - 0.04 x10(3)/[facility] Blood 07/23/2022 11:5 5 AM EDT 07/23/2022 12:07 PM EDT Narrative Resulting Agency Comment Spec In Lab Lalit Mcmahon MD HEMATOLOGY ORDERABLE S [facility] [place] [address] * Hemogram (07/23/2022 11:55 AM EDT) White Blood Cell 6.6 4.0 - 9.5 x10(3)/[facility] Red Blood Cell 4.50 4.00 - 5.21 x10(6)/[facility] Hemoglobin 13.7 11.7 - 15.5 g/dL [facility] Hematocrit 42.5 35.7 - 45.8 % [facility] Mean Cell Volume 94.4 82.6 - 94.4 fL [facility] Mean Cell Hemoglobin 30.4 27.1 - 32.0 pg [facility] Mean Cell Hemoglobin Concentration 32.2 31.7 - 35.0 g/dL [facility] Platelet 193 145 - 357 x10(3)/[facility] RDW Standard Deviation 45.5 37.0 - 46.0 fL [facility] RDW coefficient of variation 13.2 11.5 - 14.1 % [facility] Mean Platelet Volume 9.5 7.6 - 12.9 fL [facility] NRBC% auto 0.0 % [facility] NRBC Absolute 0.000 0.000 - 0.000 x10(3)/[facility] Blood 07/23/2022 11:5 5 AM EDT 07/23/2022 12:07 PM EDT Narrative Resulting Agency Comment Spec In Lab Lalit Mcmahon MD HEMATOLOGY ORDERABLE S [facility] [place] [address] * (ABNORMAL) BMP w/fasting Glucose (07/23/2022 11:55 AM EDT) Glucose Fasting 110(H) 65 - 99 mg/dL [facility] Comment: ?Fasting* Glucose Interpretive Criteria Normal ?65-99 mg/dL Impaired Fasting glucose ?100-125 mg/dL Consistent with Diabetes Mellitus ? >or= 126 mg/dL *Fasting is defined as no caloric intake for at least 8 hours In the absence of unequivocal hyperglycemia a plasma glucose value of >or= 126 mg/dL should be repeated on a subsequent day. Diagnosis and Classification of Diabetes Mellitus, Position Statement from the [place] [employer]. ??Diabetes Care, Volume 33, Supplement 1, Mar 2009 Blood Urea Nitrogen 23(H) 8 - 18 mg/dL [facility] Creatinine 1.07 0.70 - 1.20 mg/dL [facility] Sodium 141 135 - 145 mmol/L [facility] Potassium 4.8 3.5 - 5.0 mmol/L [facility] Comment: Please note: ??Patients with WBC >100,000 may have falsely elevated Potassium levels. ??For accurate Potassium quantification in these patients send serum separator tube (gold top) for subsequent determinations. ??Contact the Clinical Chemistry Laboratory if there are any questions. Chloride 106 98 - 107 mmol/L [facility] Carbon Dioxide 26 22 - 31 mmol/L [facility] Anion Gap 9 5 - 15 mmol/L [facility] Calcium 9.7 8.5 - 10.5 mg/dL [facility] Est Glomerular Filtration Rate 55(L) >=60 mL/min/1. 73 m?? [facility] Comment: This patient's estimated GFR was calculated using the 2020 CKD-EPI equation. The estimated GFR can vary from the measured GFR by up to 30% in the absence of rapidly changing kidney function. Assessment of the estimated GFR is not appropriate when creatinine concentrations are rapidly changing. For clinical situations in which a more precise estimate of GFR is necessary, consider alternative methods of GFR estimation such as a 24-hour urine creatinine clearance. Assignment of CKD stage 1-5 for patients with an eGFR near the transition point between stages may be based on clinical assessment of muscle mass and symptoms in addition to eGFR. Blood 07/23/2022 11:5 5 AM EDT 07/23/2022 12:06 PM EDT Narrative Resulting Agency Comment Spec In Lab Lalit Mcmahon MD CHEMISTRY ORDERABLES Performing Organization Address [facility] Co de Phone Number [facility] [place] [address] * Prothrombin Time (07/23/2022 11:55 AM EDT) Prothrombin Time 11.7 9.4 - 12.5 sec [facility] International Normalization Ratio 1.0 [facility] Comment: An INR <2.0 indicates adequate procoagulant activity for hemostasis in most patients without underlying bleeding disorders, though the INR may not adequately reflect hemostatic capacity in patients with liver disease and synthetic impairment. The recommended target INR range for therapeutic anticoagulation is 2.0 ? 3.0 for most applications, though lower and higher ranges may be appropriate depending on clinical circumstances. Blood 07/23/2022 11:5 5 AM EDT 07/23/2022 12:06 PM EDT Narrative Resulting Agency Comment Spec In Lab Lalit Mcmahon MD HEMATOLOGY ORDERABLE S Performing Organization Address City/[facility] Co de Phone Number [facility] [place] [address] documented in this encounter Visit Diagnoses Diagnosis HFrEF (heart failure with reduced ejection fraction)- Primary Left bundle branch block Other left bundle branch block Nonischemic cardiomyopathy Other primary cardiomyopathies Cardiac resynchronization therapy defibrillator (FURNITURE PAINTER-D) in place Left bundle branch block Other left bundle branch block Nonischemic cardiomyopathy Other primary cardiomyopathies documented in this encounter Admitting Diagnoses Diagnosis HFrEF (heart failure with reduced ejection fraction) documented in this encounter Administered Medications Inactive Administered Medications - up to 3 most recent administrations Medication Order MAR Action Action Date Dose Rate Site aspirin EC tablet 81 mg 81 mg, Oral, DAILY, First dose on Myra 07/23/22 at 1800, Until Discontinued, Routine Given 07/24/2022 8:49 AM EDT 81 mg BUpivacaine (pf) (Marcaine) (5 mg/mL) 0.5% injection 150 mg 150 mg (30 mL), Subcutaneous, ONCE, 1 dose, On Myra 07/23/22 at 1430, EP (Intra-Procedure), Routine Given 07/23/2022 2:18 PM EDT 150 mg empagliflozin (Jardiance) tablet 10 mg 10 mg, Oral, DAILY, First dose on Myra 07/23/22 at 1800, Until Discontinued, This medication should not be given with reduced PO intake/fluid loss, severe illness, or in patients with ketonemia or ketouria. , Routine, This medication should be held for 3 days prior to surgery. Is there a planned procedure within 3 days? No, Indication for empagliflozin: heart failure (HFpEF or HFrEF), Is this a new initiation for patients with heart failure (HFpEF or HFrEF) with or without diabetes? No Given 07/24/2022 8:49 AM EDT 10 mg furosemide (Lasix) tablet 20 mg 20 mg, Oral, DAILY, First dose on Myra 07/23/22 at 1800, Until Discontinued, Routine Given 07/24/2022 8:49 AM EDT 20 mg lidocaine (Xylocaine) (20 mg/mL) 2% injection 400 mg 400 mg (20 mL), Subcutaneous, ONCE, 1 dose, On Myra 07/23/22 at 1430, EP (Intra-Procedure), Routine Given 07/23/2022 2:18 PM EDT 400 mg lisinopriL (Zestril) tablet 20 mg 20 mg, Oral, DAILY, First dose on Myra 07/23/22 at 1800, Until Discontinued, Routine Given 07/24/2022 8:55 AM EDT 20 mg metoprolol succinate XL (Toprol-XL) tablet 25 mg 25 mg, Oral, NIGHTLY, First dose on Myra 07/23/22 at 2100, Until Discontinued, DO NOT CRUSH OR OPEN, Routine Given 07/23/2022 8:07 PM EDT 25 mg potassium chloride ER (Klor-Con M) crystal tablet 10 mEq 10 mEq, Oral, DAILY, First dose on Myra 07/23/22 at 1800, Until Discontinued, potassium chloride ER particle/crystal tablets (Klor-Con M) may be broken in half and each half swallowed separately. Tablets can be dissolved in ~4 ounces of water; allow ~2 minutes to dissolve, stir well and drink immediately. Do not crush, chew, or suck on tablet., Routine Given 07/24/2022 8:49 AM EDT 10 mEq rosuvastatin (Crestor) tablet 5 mg 5 mg, Oral, NIGHTLY, First dose on Myra 07/23/22 at 2100, Until Discontinued, Routine Given 07/23/2022 8:07 PM EDT 5 mg documented in this encounter Active and Recently Administered Medications Times are shown in EDT. Scheduled Medication Order 07/22/2022 07/23/2022 07/24/2022 aspirin EC tablet 81 mg 81 mg, Oral, DAILY, First dose on Myra 07/23/22 at 1800, Until Discontinued, Routine 1800 (Not Given - Provider: Zaria Wright RN - Reason: Contraindicated - Comment: Pt took this AM) 0849 (Given - Provider: Alia Frye RN) BUpivacaine (pf) (Marcaine) (5 mg/mL) 0.5% injection 150 mg (COMPLETED) 150 mg (30 mL), Subcutaneous, ONCE, 1 dose, On Myra 07/23/22 at 1430, EP (Intra-Procedure), Routine 1418 (Given - Provider: Fadi Nunez MD) ceFAZolin (Ancef) 2 g vial attach to sodium chloride 0.9% 100 mL Mini-Bag Plus (COMPLETED) 2 g, Intravenous, ONCE, 1 dose, On Myra 07/23/22 at 1245, Administer over 30 Minutes, For use in the electrophysiology lab (EP lab) only with direct provider supervision and verbal order., EP (Intra-Procedure), Indication for (Active or Suspected): Prophylaxis 1338 (New Bag - Provider: Maria Elena Serrano CRNA) empagliflozin (Jardiance) tablet 10 mg 10 mg, Oral, DAILY, First dose on Myra 07/23/22 at 1800, Until Discontinued, This medication should not be given with reduced PO intake/fluid loss, severe illness, or in patients with ketonemia or ketouria. , Routine, This medication should be held for 3 days prior to surgery. Is there a planned procedure within 3 days? No, Indication for empagliflozin: heart failure (HFpEF or HFrEF), Is this a new initiation for patients with heart failure (HFpEF or HFrEF) with or without diabetes? No 1800 (Not Given - Provider: Zaria Wright RN - Reason: See comment - Comment: Pt will resume in the AM) 0849 (Given - Provider: Alia Frye RN) furosemide (Lasix) tablet 20 mg 20 mg, Oral, DAILY, First dose on Myra 07/23/22 at 1800, Until Discontinued, Routine 1800 (Not Given - Provider: Zaria Wright RN - Reason: Patient/family refused - Comment: Pt declined for tonight) 0849 (Given - Provider: Alia Frye RN) lidocaine (Xylocaine) (20 mg/mL) 2% injection 400 mg (COMPLETED) 400 mg (20 mL), Subcutaneous, ONCE, 1 dose, On Myra 07/23/22 at 1430, EP (Intra-Procedure), Routine 1418 (Given - Provider: Fadi Nunez MD) lisinopriL (Zestril) tablet 20 mg 20 mg, Oral, DAILY, First dose on Myra 07/23/22 at 1800, Until Discontinued, Routine 1800 (Not Given - Provider: Zaria Wright RN - Reason: Patient/family refused - Comment: Will take in the AM) 0855 (Given - Provider: Alia Frye RN) metoprolol succinate XL (Toprol-XL) tablet 25 mg 25 mg, Oral, NIGHTLY, First dose on Myra 07/23/22 at 2100, Until Discontinued, DO NOT CRUSH OR OPEN, Routine 2006 (Given - Provider: Zaria Wright RN) potassium chloride ER (Klor-Con M) crystal tablet 10 mEq 10 mEq, Oral, DAILY, First dose on Myra 07/23/22 at 1800, Until Discontinued, potassium chloride ER particle/crystal tablets (Klor-Con M) may be broken in half and each half swallowed separately. Tablets can be dissolved in ~4 ounces of water; allow ~2 minutes to dissolve, stir well and drink immediately. Do not crush, chew, or suck on tablet., Routine 1800 (Not Given - Provider: Zaria Wright RN - Reason: Patient/family refused - Comment: Pt will take in the AM) 0849 (Given - Provider: Alia Frye, XAVI) rosuvastatin (Crestor) tablet 5 mg 5 mg, Oral, NIGHTLY, First dose on Myra 07/23/22 at 2100, Until Discontinued, Routine 2006 (Given - Provider: Zaria Wright, XAVI) Continuous Medication Order 07/22/2022 07/23/2022 07/24/2022 lactated ringers infusion (CANCELED) 1,000 mL, at 100 mL/hr, Intravenous, CONTINUOUS, Starting on Myra 07/23/22 at 1245, Until Myra 07/23/22 at 1646, Day of Surgery (Day of Procedure) 1307 (New Bag - Provider: Maria Elena Serrano CRNA)1400 (Anesthesia Volume Adjustment - Provider: Maria Elena Serrano CRNA)1553 (Stopped - Provider: Maria Elena Serrano CRNA) PRN Medication Order 07/22/2022 07/23/2022 07/24/2022 acetaminophen (Tylenol) tablet 650 mg 650 mg, Oral, EVERY 4 HOURS PRN, Starting on Myra 07/23/22 at 1646, Until 07/24/22 at 1232, Pain, Fever, Mild-moderate pain (1-6), Maximum dose of acetaminophen is 4000 mg from all sources in 24 hours. When ordered for pain, acetaminophen should be given even when other ordered pain medications are indicated., Recovery (Recovery-Hospital Unit), Routine fluticasone propionate (Flonase) 50 mcg/actuation nasal spray 1 spray 1 spray, Each Nare, DAILY PRN, Starting on Myra 07/23/22 at 1740, Until Wed07/24/22 at 1232, Allergies, Routine documented in this encounter Care Teams Printing Plate Clerk Relationship Specialty Start Date End Date Lolly Oliveira MD [address] [place] [address] PCP - General 07/17/13 documented as of this encounter
--- OUTSIDE RECORDS SUMMARY | 2023-10-13 11:50 | XMS_ITS | Encounter Summary ---
Author Organization [facility] [place] [address] Care Team Providers Care Sodium Chlorite Operator Name Role Phone Lolly Oliveira MD Primary Care Provider Encounter Details Date Type Department Care Team (Late st Contact Info) Description 03/17/2023 Telephone Cardiology at [address] [phone] Saranya Ma Social History Tobacco Use Types Packs/Day Years Used Date Smoking Tobacco: Never Alcohol Use Standard Drinks/Week Comments Not Currently 0 (1 standard drink = 0.6 oz pur e alcohol) [facility] Inpatient Questions Answer Date Recorded [...] * Telephone Encounter - Saranya Ma - 03/17/2023 9:43 AM EST Echo order faxed to [facility] at [phone]. No Prior auth needed. Ref #:[id number]. Saranya Ma Sr. Clinical Procedure Order Desk Clerk/Fac Engineer documented in this encounter Plan of Treatment Upcoming Encounters Date Type Department Care Team (Late st Contact Info) Description 10/18/2023 10:00 AM EDT Hospital Encounter Non-[place] [address] Arrived documented as of this encounter Visit Diagnoses Not on filedocumented in this encounter Care Teams Sodium Chlorite Operator Relationship Specialty Start Date End Date Lolly Oliveira MD [address] [place] [address] PCP - General 07/17/13 documented as of this encounter
--- OUTSIDE RECORDS SUMMARY | 2023-10-13 11:50 | XMS_ITS | Encounter Summary ---
Author Organization [facility] [place] [address] Care Team Providers Care Smoke Jumper Supervisor Name Role Phone Lolly Oliveira MD Primary Care Provider [phone] Reason for Visit * Reason Onset Date Comments Pre Procedure Call 07/01/2022 Encounter Details Date Type Department Care Team (Late st Contact Info) Description 07/01/2022 Telephone Cardiology at [address] [phone] Rosenda Sutton RN Pre Procedure Call Social History Tobacco Use Types Packs/Day Years Used Date Smoking Tobacco: Never Sex and Gender Information Value Date Recorded Sex Assigned at Not on file Gender Identity Not on file Sexual Orientation Not on file documented as of this encounter Miscellaneous Notes * Telephone Encounter - Rosenda Sutton RN - 07/01/2022 9:30 AM EDTSummary: Pre Procedure Call: ROUGHER MACHINE OPERATOR implant EP CHEMICAL ENGINEERING TEACHER COORDINATION CHECKLIST Patient Name: Luna Mott Patient Performing Acoustical Tile Drill Press Operator: Lalit Mcmahon Referring Provider: Lolly Oliveira Date of Procedure: 07/23/22 Arrival Time/ Case Time: 12:00 pm / 1:00 pm Check In Location: Coagulating Bath Operator Desk 4W Date Patient was Called: 07/01/22 Procedure: ROUGHER MACHINE OPERATOR Company: [employer] Type: ROUGHER MACHINE OPERATOR-D Laterality: LEFT Orders: Yes Lab Orders: Yes Anesthesia: GA Discharge Plan/Disposition: OVERNIGHT/SSU Med Instructions: DIURETIC - hold Lasix the AM of procedure JENNIFER - hold lisinopril the AM of procedure Other - STOP Jardiance beginning 3 days prior to procedure (no doses 07/20 - 07/23) Anticoag Type: N/A Imaging: cMRI scheduled on 07/14 HIBICLENS?: Yes Contrast Allergy: No ABX allergy: Sulfa DM: No Coming from an assisted living facility?: No Any recent S/S of infection (fevers, on oral ABX)?: No Other Instructions: Clear liquids (water, apple juice, les lauri) OK up until 2 hrs prior to procedure, nothing to eatafter midnight on day of procedure.Same Day will call 07/22. If applicable will bring CPAP from home. Will be staying overnight , understands that they will need driver material handler on day of discharge Notified pt that Goff catheter may be placed on day of procedure depending on type & duration of case. documented in this encounter Plan of Treatment Upcoming Encounters Date Type Department Care Team (Late st Contact Info) Description 10/18/2023 10:00 AM EDT Hospital Encounter Non[place] [phone] Arrived documented as of this encounter Visit Diagnoses Not on filedocumented in this encounter Care Teams Smoke Jumper Supervisor Relationship Specialty Start Date End Date Lolly Oliveira MD [address] [place] [address] PCP - General 07/17/13 documented as of this encounter
--- OUTSIDE RECORDS SUMMARY | 2023-10-13 11:50 | XMS_ITS | Encounter Summary ---
[place] [address] Care Team Providers Care Military Equipment Specialist Name Role Phone Lolly Oliveira MD Primary Care Provider [phone] Encounter Details Date Type Department Care Team (Late st Contact Info) Description 04/09/2022 Refill Dermatology at [address] [phone] Nora Meredith, EXTRACT WRINGER Social History Tobacco Use Types Packs/Day Years [...] AM EDT Hospital Encounter [place] [address] Arrived documented as of this encounter Visit Diagnoses Not on filedocumented in this encounter Care Teams Military Equipment Specialist Relationship Specialty Start Date End Date Lolly Oliveira MD [address] [place] [address] PCP - General 07/17/13 documented as of this encounter
--- OUTSIDE RECORDS SUMMARY | 2023-10-13 11:50 | XMS_ITS | Encounter Summary ---
Author Organization [facility] Address [facility] [place] [address] Care Team Providers Care Rn Emergency Room Name Role Phone Lolly Oliveira MD Primary Care Provider [phone] Reason for Referral * Diagnostic Test (Routine) - Closed Specialty Diagnoses / Procedures Referred By Contkoki t Referred To Contact Cardiology Diagnoses Nonischemic cardiomyopathy Biventricular ICD (implantable cardioverter-defibrillator) in place Procedures Echocardiogram Transthoracic Lalit Mcmahon MD [facility] [place] [address] Referral ID Status Reason Start Date Expiration Date V isits Requested Visits Authorized [id number] Closed Specialty Service Requested 03/15/2023 09/11/2023 1 1 Encounter Details Date Type Department Care Team (Late st Contact Info) Description 03/15/2023 Orders Only Cardiology at [address] [phone] Lalit Mcmahon MD [facility] [place] [address] Nonischemic cardiomyopathy; Biventricular ICD (implantable cardioverter-defibrill ator) in place Social History Tobacco Use Types Packs/Day Years [...] AM EDT Hospital Encounter Non[place] [address] Arrived Scheduled Orders Name Type Priority Associated Diagnoses Order Schedule Echocardiogram Transthoracic Echocardiography Routine Nonischemic cardiomyopathy Biventricular ICD (implantable cardioverter-defibr illator) in place Expected: 05/05/2023, Expires: 11/04/2023 documented as of this encounter Visit Diagnoses Diagnosis Nonischemic cardiomyopathy Other primary cardiomyopathies Biventricular ICD (implantable cardioverter-defibrillator) in place documented in this encounter Care Teams Rn Emergency Room Relationship Specialty Start Date End Date Lolly Oliveira MD [address] [place] [address] PCP - General 07/17/13 documented as of this encounter
--- OUTSIDE RECORDS SUMMARY | 2023-10-13 11:50 | XMS_ITS | Encounter Summary ---
Author Organization [facility] [address] Care Team Providers Care Architectural Coating Finisher Name Role Phone Lolly Oliveira MD Primary Care Provider [phone] Reason for Visit * Reason Comments Follow-up Encounter Details Date Type Department Care Team (Late st Contact Info) Description 07/02/2022 8:00 AM EDT Office Visit Dermatology at [address] [phone] Clay Ramírez MD [address] [facility] [place] [address] Psoriasis, guttate Social History Tobacco Use Types Packs/Day Years Used Date Smoking Tobacco: Never Sex and Gender Information Value Date Recorded Sex Assigned at Not on file Gender Identity Not on file Sexual Orientation Not on file documented as of this encounter Progress Notes * Clay Ramírez MD - 07/02/2022 8:00 AM EDT Problem: 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 We decreased her narrowband UVB down from twice weekly to once weekly. She like to stop narrowband UVB until her skin might begin to flare again this fall/winter. I thinkthat is reasonable. Physical examination reveals a pleasant 71-year-old woman skin is clear. 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 She has a very faint pineda. 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 Patient has received 20 narrowband UVB light treatment sessions. 2. Recommend that we discontinue narrowband UVB 3. Return to clinic as needed CC: Lolly Oliveira MD documented in this encounter Plan of Treatment Upcoming Encounters Date Type Department Care Team (Late st Contact Info) Description 10/18/2023 10:00 AM EDT Hospital Encounter Non[place] [phone] Arrived documented as of this encounter Visit Diagnoses Diagnosis Psoriasis, guttate Other psoriasis documented in this encounter Care Teams Architectural Coating Finisher Relationship Specialty Start Date End Date Lolly Oliveira MD [address] [place] [address] PCP - General 07/17/13 documented as of this encounter
--- OUTSIDE RECORDS SUMMARY | 2023-10-13 11:50 | XMS_ITS | Encounter Summary ---
Author Organization [facility] [place] [address] Care Team Providers Care Nibbler Operator Name Role Phone Lolly Oliveira MD Primary Care Provider [phone] Reason for Visit * Reason Comments Follow-up Encounter Details Date Type Department Care Team (Late st Contact Info) Description 05/21/2022 8:00 AM EDT Office Visit Dermatology at [address] [phone] Clay Ramírez MD [address] [facility] [place] [address] Psoriasis, guttate Social History Tobacco Use Types Packs/Day Years Used Date Smoking Tobacco: Never Sex and Gender Information Value Date Recorded Sex Assigned at Not on file Gender Identity Not on file Sexual Orientation Not on file documented as of this encounter Progress Notes * Clay Ramírez MD - 05/21/2022 8:00 AM EDT Problem: 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 We dropped her down to twice weekly narrowband UVB sessions and started clobetasol cream for remaining sites on her shins. I last saw her on April 09. Physical examination reveals a pleasant 71-year-old woman who hasessentially total clearing of her guttate psoriasis with minimal erythematous macules to present on the anterior shins presents with total clearing of the psoriasis patches previously present to there. Arms are clear her torso is clear. 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 We will reduce her current 2 times weekly Wednesday and Wednesday treatment sessions now is down to once weekly, Fridays, beginning next week May 29. Patient will receive her Wednesday treatment this week and has already received her Wednesday treatment. 2. Return to clinic in 6 weeks for repeat check 3. Long-term plan will be to lower her to the lowest frequency of narrowband UVB light treatments to control her psoriasis, but not discontinue. 4. Last summer she continued therapy through much of the summer but when she stopped in the Fall her psoriasis again flared. Therefore we will plan regular maintenance dosing for the future. 5. Continue clobetasol cream applying twice daily to the residual areas of psoriasis on shins as needed. 6. Return to clinic in 6 weeks CC: Lolly Oliveira MD documented in this encounter Plan of Treatment Upcoming Encounters Date Type Department Care Team (Late st Contact Info) Description 10/18/2023 10:00 AM EDT Hospital Encounter Non-Invasive [place] [address] Arrived documented as of this encounter Visit Diagnoses Diagnosis Psoriasis, guttate Other psoriasis documented in this encounter Care Teams Nibbler Operator Relationship Specialty Start Date End Date Lolly Oliveira MD [address] [place] [address] PCP - General 07/17/13 documented as of this encounter
--- OUTSIDE RECORDS SUMMARY | 2023-10-13 11:50 | XMS_ITS | Encounter Summary ---
Author Organization Count Includes [facility] Address [facility] [place] [address] Care Team Providers Care Director Of Restaurant Operations Name Role Phone Lolly Oliveira MD Primary Care Provider [phone] Reason for Visit * Auth/Cert (Routine) Specialty Diagnoses / Procedures Referred By Contac t Referred To Contact Diagnoses Left bundle-branch block, unspecified Other cardiomyopathies Left bundle branch block [I44.7]Nonischemic cardiomyopathy [I42.8] Procedures PRG CATH PLMT LEFT HEART CATH & ARTS W/INJ & ANGIO IMG S&I ELECTROPHYSIOLOGY PROCEDURE Lalit Mcmahon MD [facility] [place] [address] [facility] Referral ID Status Reason Start Date Expiration Date Visits Re quested Visits Authorized [id number] 1 1 Encounter Details Date Type Department Care Team (Latest Contact Info) Description 07/23/2022 11:39 AM EDT - 07/24/2022 10:23 AM EDT Hospital [place] [id number] Lalit Mcmahon MD [facility] [address] Left bundle branch block; Nonischemic cardiomyopathy; Cardiac resynchronization therapy defibrillator (COLLECTION SYSTEMS CONSULTANT-D) in place Discharge Disposition: Home Social History Tobacco Use [...] Luna Mott Patient Age: 71 y.o. Language: Estonian Race: White Ethnicity: Not nor Admit date: 07/23/2022 Discharge date and time: 07/24/22 Attending Physician: Lalit Mcmahon MD Discharge Physician: Lalit Mcmahon MD Follow-up Recommendations for Providers: - s/p COLLECTION SYSTEMS CONSULTANT-D implant - post implant QRS 130 ms - reviewed post-implant instructions - no medication changes - Follow up in device clinic for wound/device check in ~10 days ([facility]) Inpatient Provider Contact Information: Cardiac Electrophysiology - Discharge Diagnoses (Hospital Problems) and Secondary Diagnoses (Chronic Problems): Active Hospital Problems Diagnosis ??? HFrEF (heart failure with reduced ejection fraction) Resolved Hospital Problems No resolved problems to display. Active Non-Hospital Problems Diagnosis ??? Dermatofibroma ??? Nevus ??? Solar lentigo Operations/Major Procedures: 07/23/22: [facility] COLLECTION SYSTEMS CONSULTANT-D implant History of Presentation: 71 y.o. female with a history of HFrEF, LBBB, QRS >150, NYHA II who is POD#1 of COLLECTION SYSTEMS CONSULTANT-D implant ([employer]). Hospital Course: Elective admission for COLLECTION SYSTEMS CONSULTANT-D implant Admitted post-implant for pain management, telemetry [...] (heart failure with reduced ejection fraction) [I50.20] COLLECTION SYSTEMS CONSULTANT-D implant Admission Condition: good Indication for Admission: [...] g Refills: 3 fluticasone propionate 50 mcg/actuation [place], Suspension Commonly known as: Flonase 1 spray [...] the incision. Make sure to use a clothing examiner (such as a towel) in between the [...] F. The office scheduling phone number is [phone]. ARM MOVEMENT RESTRICTIONS POST-IMPLANT - Do not [...] please call the Cardiac ElectrophysiologyTriage Nurse at [phone], option 3. General Instructions None Discharge References/Attachments None Lalit Mcmahon MD S Cardiac Electrophysiology 07/24/2022 12:33 PM documented in this encounter Discharge Instructions * Patient Instructions* Fadi Nunez MD - 07/24/2022 8:10 AM EDT FINAL ICD/PACEMAKER RECOMMENDATIONS: 1. Standard post implant discharge instructions (see below): 2. Medications as listed above. You may use ice packs over the incision. Make sure to use a clothing examiner (such as a towel) in between the [...] F. The office scheduling phone number is [phone]. ARM MOVEMENT RESTRICTIONS POST-IMPLANT - Do not [...] please call the Cardiac ElectrophysiologyTriage Nurse at [phone], option 3. documented in this encounter Medications [...] with spacer fluticasone propionate (Flonase) 50 mcg/actuation [place], Suspension 1 spray by Each Nare route [...] Cardiac Electrophysiology Post-Implant Device Interrogation Luna Mott [id number] 07/24/2022 History: Luna Mott is a 71 y.o. female with a history of HFrEF, LBBB, QRS >150, NYHA II who is POD#1 of COLLECTION SYSTEMS CONSULTANT-D implant ([employer]). Overall feels well this morning. Ready [...] Neuro- A&Ox3 Device Interrogation: Data ?? Director Of Premium Seat Sales Model # Serial # Generator [employer] [id number] Atrial Lead [employer] [id number] RV Lead [employer] [id number] [id number] LV Lead [employer] [id number] ?? Diagnostics Pacing Mode: DDD 60-130 Underlying Rhythm: [place] Atrial Episodes: None Ventricular Episodes: None FINAL PROGRAMMING: Pacing: Mode Lower rate (ppm) Upper rate (ppm) ?? DDD 60 130 VF: Rate (bpm) #Antitachycardia pacing First shock energy (J) ?? 200 Quick convert 41 VT: 170 Monitor only Monitor only ? Battery and Leads Impedances (ohms) Sensing (mV) Thresholds HV RA RV LV RA RV LV RA RV LV 73 [phone] (LVa) 7.7 13.1 >25 0.4V @ 0.4 ms 0.4V @ 0.4 ms 0.5 V @ 1.0 ms POD#1 CXR: All leads in nominal positioning Impression: 71 y.o. female who is s/p COLLECTION SYSTEMS CONSULTANT-D implant for LBBB, NYHA II, HFrEF. - Appropriate device function post-implant - CXR negative for post-implant complications - Changed sensed AV delay from 130 to 110 Plan: 1. Reviewed standard post-implant discharge instructions (see patient instructions) including arm restrictions, wound care, bathing, and driving 2. No medication changes. 3. Follow up in device clinic for wound/device check in ~10 days ([facility]) Fadi Nunez MD 07/24/2022 Pager: [phone] I met with the patient today and [...] agreement. ? Dr. Lalit Mcmahon, electrophysiology attending ([id number]) * Zaria Wright RN - 07/23/2022 8:28 [...] HF, QRS > 150 ms presents for COLLECTION SYSTEMS CONSULTANT-D placement. ROS: Denies recent fevers or chills [...] 0.9) flush 5 mL 5 mL Intravenous [id number] ramos MD ??? sodium chloride 0.9 % [...] HF, QRS > 150 ms presents for COLLECTION SYSTEMS CONSULTANT-D placement. Backup would be LBBAP lead. Antibiotics: cefazolin Rationales for, intended benefits and potential risk of planned procedures reviewed. The patient indicated understanding and agreement with the plan. Informed consent signed. Procedure checklist completed. Fadi Nunez MD Cardiac Electrophysiology Fellow [facility] Pager [phone] 07/23/2022 I met with the patient today [...] agreement. ? Dr. Lalit Mcmahon, electrophysiology attending ([id number]) documented in this encounter Miscellaneous Notes * Brief Op Note - Lalit Mcmahon MD - 07/23/2022 4:04 PM EDT Brief Operative Note Patient Name: Luna Mott : [id number] MR#: [id number] Case Date: 07/23/2022 Surgeon: Surgeon(s) and Role: [...] AM EDT Hospital Encounter Non-[place] [address] Arrived Scheduled Orders Name Type Priority Associated Diagnoses Orde r Schedule EKG 12 Lead ECG Routine Cardiac resynchronization therapy defibrillator (COLLECTION SYSTEMS CONSULTANT-D) in place One Time for 1 Occurrences [...] (Bezet) 522 ms MUSE SYSTEM Calculated R [place] 78 degrees MUSE SYSTEM Calculated T [place] -71 degrees MUSE SYSTEM INTERPRETATION AV dual-paced [...] who have questions please contact the health day care attendant that requested your imaging first. ? Electronically signed by: Kwame Vargas MD, [facility] ([phone]), at 07/24/2022 6:43 AM Narrative 07/24/2022 6:43 AM EDT EXAMINATION: XR [...] patients who have questions please contactthe health day care attendant that requested your imaging first. Electronically signed by: Kwame Vargas MD, [facility]([phone]), at 07/24/2022 6:43 AM Lalit Mcmahon MD IMG DX ORDERABLES * ELECTROPHYSIOLOGY PROCEDURE (07/23/2022 1:11 PM EDT) Anatomical Region Laterality Modality Other Narrative 07/23/2022 4:24 PM EDT Table formatting from the original result was not included. BIVENTRICULAR ICD IMPLANTATION Janitorial Account Manager: Lalit Mcmahon MD Fellow: Fadi Nunez MD [...] lateral branch of the CS in the [place] view. This branch was cannulated with a [...] entire procedure. LEAD AND GENERATOR DATA: Director Of Premium Seat Sales Model # Serial # Generator [employer] [id number] Atrial Lead [employer] [id number] RV Lead [employer] 0672 [id number] LV Lead [employer] [id number] PACE/SENSE DATA: Sensed wave (mV) Threshold (V) [...] (cGycm2) 300 CONCLUSIONS: Successful implantation of a [employer] biventricular ICD for primary prevention and treatment of symptoms related to congestive heart failure. Follow up in EP clinic in 1-2 months. Procedures performed: new ICD system ( cpt 14070-M9); implant LV lead at time of ICD insertion (cpt 59880) I have read, edited and approve of this report: Lalit Mcmahon MD S Cardiac Electrophysiology 07/23/2022 4:22 PM Procedure Note Lalit Mcmahon MD - 07/23/2022 BIVENTRICULAR ICD IMPLANTATION Janitorial Account Manager: Lalit Mcmahon MD Fellow: Fadi Nunez MD [...] appropriate lateralbranch of the CS in the [place] view. This branch was cannulated with a [...] the entireprocedure. LEAD AND GENERATOR DATA: Director Of Premium Seat Sales Model # Serial # Generator [employer] [id number] Atrial Lead [employer] 7841 [id number] RV Lead [employer] 0672 [id number] LV Lead [employer] 4674 010513 PACE/SENSE DATA: Sensed wave (mV) Threshold (V) [...] (cGycm2) 300 CONCLUSIONS: Successful implantation of a [employer] biventricular ICD forprimary prevention and treatment of symptoms related to congestive heartfailure. Follow up in EP clinic in 1-2 months. Procedures performed: new ICD system ( cpt 67829-Y6); implant LV lead attime of ICD insertion (cpt 85233) I have read, edited and approve of this report: Lalit Mcmahon MD [facility] Cardiac Electrophysiology 07/23/2022 4:22 PM Lalit Mcmahon MD EP PROCEDURE ORDERAB LES * POCT Glucose (07/23/2022 12:54 PM EDT) Glucose, POC 83 65 - 199 mg/dL [facility] Comment: Supplemental ranges: <140 mg/dL before meals <180 mg/dL all other times of the day Blood 07/23/2022 12:5 4 PM EDT 07/23/2022 12:54 PM EDT Lalit Mcmahon MD POINT OF CARE TEST O RDERABLES Performing Organization Address [facility] Co de Phone Number [facility] [address] * EKG 12 Lead (07/23/2022 12:33 PM EDT) Ventricular rate 72 BPM MUSE SYSTEM Atrial Rate 72 BPM MUSE SYSTEM P-R Interval 158 ms MUSE SYSTEM QRS Duration 176 ms MUSE SYSTEM Q-T Interval 458 ms MUSE SYSTEM QTC Calculated (Bezet) 501 ms MUSE SYSTEM Calculated P [place] 34 degrees MUSE SYSTEM Calculated R [place] 12 degrees MUSE SYSTEM Calculated T [place] -173 degrees MUSE SYSTEM INTERPRETATION Normal sinus rhythm Left bundle branch block Abnormal ECG No previous ECGs available Confirmed by MD Salome, Lalit ([id number]) on 07/23/2022 1:19:03 PM MUSE SYSTEM 07/23/2022 12:3 3 PM EDT 07/23/2022 1:19 PM EDT Lalit Mcmahon MD ECG ORDERABLES Performing Organization Address [facility] de Phone Number MUSE SYSTEM * Differential, Automated (07/23/2022 11:55 AM EDT) Neutrophil % 62.6 % [facility] Neutrophil Absolute 4.14 1.70 - 6.10 x10(3)/[facility] Lymph % 27.0 % [facility] Lymphocytes Abs 1.8 0.9 - 3.2 x10(3)/[facility] Monocyte % 7.3 % [facility] Monocyte Abs 0.5 0.3 - 0.9 x10(3)/[facility] Eos % 2.3 % [facility] Eosinophils Abs 0.2 0.0 - 0.4 x10(3)/[facility] Basophil % 0.6 % [facility] Baso Absolute 0.0 0.0 - 0.1 x10(3)/[facility] Immature Gran % 0.20 % [facility] Comment: Immature granulocytes(IG's)percentage and absolute count will include metamyelocytes, myelocytes, and promyelocytes. Blood smears from CBCs yielding IG's will be scanned manually for concordance. If this scan disagrees with the automated IG or if promyelocytes are noted, a manual differential will be performed. Immature Gran Absolute 0.01 0.00 - 0.04 x10(3)/[facility] Blood 07/23/2022 11:5 5 AM EDT 07/23/2022 12:07 PM EDT Narrative Resulting Agency Comment Spec In Lab Lalit Mcmahon MD HEMATOLOGY ORDERABLE S [facility] [address] * Hemogram (07/23/2022 11:55 AM EDT) White Blood Cell 6.6 4.0 - 9.5 x10(3)/[facility] Red Blood Cell 4.50 4.00 - 5.21 x10(6)/[facility] Hemoglobin 13.7 11.7 - 15.5 g/dL [facility] Hematocrit 42.5 35.7 - 45.8 % [facility] Mean Cell Volume 94.4 82.6 - 94.4 fL [facility] Mean Cell Hemoglobin 30.4 27.1 - 32.0 pg [facility] Mean Cell Hemoglobin Concentration 32.2 31.7 - 35.0 g/dL [facility] Platelet 193 145 - 357 x10(3)/[facility] RDW Standard Deviation 45.5 37.0 - 46.0 fL [facility] RDW coefficient of variation 13.2 11.5 - 14.1 % [facility] Mean Platelet Volume 9.5 7.6 - 12.9 fL [facility] NRBC% auto 0.0 % [facility] NRBC Absolute 0.000 0.000 - 0.000 x10(3)/[facility] Blood 07/23/2022 11:5 5 AM EDT 07/23/2022 12:07 PM EDT Narrative Resulting Agency Comment Spec In Lab Lalit Mcmahon MD HEMATOLOGY ORDERABLE S [facility] [address] [place] [address] * (ABNORMAL) BMP w/fasting Glucose (07/23/2022 11:55 AM EDT) Glucose Fasting 110(H) 65 - 99 mg/dL [facility] Comment: ?Fasting* Glucose Interpretive Criteria Normal [...] of Diabetes Mellitus, Position Statement from the [place] [employer]. ??Diabetes Care, Volume 33, Supplement 1, Mar 2009 Blood Urea Nitrogen 23(H) 8 - 18 mg/dL [facility] Creatinine 1.07 0.70 - 1.20 mg/dL [facility] Sodium 141 135 - 145 mmol/L [facility] Potassium 4.8 3.5 - 5.0 mmol/L [facility] Comment: Please note: ??Patients with WBC >100,000 may have falsely elevated Potassium levels. ??For accurate Potassium quantification in these patients send serum separator tube (gold top) for subsequent determinations. ??Contact the Clinical Chemistry Laboratory if there are any questions. Chloride 106 98 - 107 mmol/L [facility] Carbon Dioxide 26 22 - 31 mmol/L [facility] Anion Gap 9 5 - 15 mmol/L [facility] Calcium 9.7 8.5 - 10.5 mg/dL [facility] Est Glomerular Filtration Rate 55(L) >=60 mL/min/1. 73 m?? [facility] Comment: This patient's estimated GFR was [...] Mcmahon MD CHEMISTRY ORDERABLES Performing Organization Address City/[facility] Co de Phone Number [facility] [address] * Prothrombin Time (07/23/2022 11:55 AM EDT) Prothrombin Time 11.7 9.4 - 12.5 sec [facility] International Normalization Ratio 1.0 [facility] Comment: An INR <2.0 indicates adequate [...] MD HEMATOLOGY ORDERABLE S Performing Organization Address City/[facility] Co de Phone Number [facility] [address] documented in this encounter Visit Diagnoses Diagnosis HFrEF (heart failure with reduced ejection fraction)- Primary Left bundle branch block Other left bundle branch block Nonischemic cardiomyopathy Other primary cardiomyopathies Cardiac resynchronization therapy defibrillator (COLLECTION SYSTEMS CONSULTANT-D) in place Left bundle branch block Other [...] mg, Oral, DAILY, First dose on Myra 523 at 1800, Until Discontinued, Routine Given 07/24/2022 [...] No 1800 (Not Given - Provider: Zaria rWight RN - Reason: See comment - Comment: [...] 0849 (Given - Provider: Alia Frye RN) rosuvastatin (Crestor) tablet 5 mg 5 mg, Oral, NIGHTLY, First dose on Myra 07/23/22 at 2100, Until Discontinued, Routine 2006 (Given - Provider: Zaria Wright RN) Continuous Medication Order 07/22/2022 07/23/2022 07/24/2022 lactated [...] Starting on Myra 07/23/22 at 1646, Until Wed07/24/22 at 1232, Pain, Fever, Mild-moderate pain (1-6), [...] Routine documented in this encounter Care Teams Director Of Restaurant Operations Relationship Specialty Start Date End Date Lolly Oliveira MD [address] [place] [address] PCP - General 07/17/13 documented as of this encounter
--- OUTSIDE RECORDS SUMMARY | 2023-10-13 11:50 | XMS_ITS | Encounter Summary ---
Author Organization [facility] Address [facility] [place] [address] Care Team Providers Care Optical Glass Etcher Name Role Phone Lolly Oliveira MD Primary Care Provider [phone] Encounter Details Date Type Department Care Team (Late st Contact Info) Description 01/29/2023 Notes Only Cardiology at [address] [address] Merle Lin PA [facility] [place] [address] Social History Tobacco Use Types Packs/Day Years Used Date Smoking Tobacco: Never Alcohol Use Standard Drinks/Week Comments Not Currently 0 (1 standard drink = 0.6 oz pur e alcohol) [facility] Inpatient Questions Answer Date Recorded Does Anyone [...] as of this encounter Progress Notes * Merle Lin PA - 01/29/2023 9:06 AM EST [employer] Heart Failure Index Alert Outpatient remote interrogation report: See full report as a linked pdf document Date of transmission: 01/29/2023 Device puddler pile driving: BSI Device type: MANAGER SYSTEMS-D Presenting rhythm: /RVP/LVP AP 21% Right SOILS TECHNICIAN 100% Left SOILS TECHNICIAN: 100% Battery: 10.5 years [employer] Index rising in setting of increasing S3 intensity, increasing respiratory rate, increasing night heart rate, and increasing mean heart rate. MICKEY Villa 01/29/2023 9:06 AM documented in this encounter Plan of Treatment Upcoming Encounters Date Type Department Care Team (Late st Contact Info) Description 10/18/2023 10:00 AM EDT Hospital Encounter Non-Invasive [place] [address] Arrived documented as of this encounter Visit Diagnoses Not on filedocumented in this encounter Care Teams Optical Glass Etcher Relationship Specialty Start Date End Date Lolly Oliveira MD [address] [place] [address] PCP - General 07/17/13 documented as of this encounter
--- OUTSIDE RECORDS SUMMARY | 2023-10-13 11:51 | XMS_ITS | Encounter Summary ---
Author Organization [facility] [place] [address] Care Team Providers Care Nurse Ob Name Role Phone Lolly Oliveira MD Primary Care Provider [phone] Encounter Details Date Type Department Care Team (Latest Contact Info) Description 07/18/2013 Orders [place] [id number] Alia Fraire MD [facility] [place] [address] Mammographic microcalcification (Primary Dx) Social History Tobacco Use Types Packs/Day Years [...] AM EDT Hospital Encounter [place] [phone] Arrived documented as of this encounter Results * Mammo Specimen Imaging During Biopsy (07/26/2013 11:58 AM EDT) Anatomical Region Laterality Modality Breast N/A Mammography 07/26/2013 11:5 8 AM EDT Impressions 07/28/2013 5:26 PM EDT Impression: concordant Recommendation: f/u mammography in one year. ??As discussed with Ms. Mott by Dr. Christian on 07/28/13. ?? I performed the procedure without a resident. Narrative 07/28/2013 5:26 PM EDT VACUUM ASSISTED STEREOTACTIC GUIDED BIOPSY OF THE RIGHT BREAST ON 07/26/13: Informed consent was obtained. Using sterile technique and 1% lidocaine used for local anesthesia, a skin incision was made and a biopsy was performed from a lateral approach in the Prone Unit using 2D stereotactic guidance for image guidance. Clinical indication: Right breast 10mm cluster of calcifications in the upper, outer quadrant at 1000, 8cm from the nipple. An AccutFit Lorad Stage drape was used to cover the track of the biopsy device. ?? 9-gauge Eviva Regular device 8 core biopsy specimens obtained. The specimen was X-rayed; the calcifications are present on specimen digital X-ray. A SMark Eviva-Stereo 13 Cylinder marker clip was placed. Cranio-caudal and lateral digital mammography performed to determine biopsy marker placement, which was shown to be 1 cm from the biopsy site in lateral direction. Satisfactory sampling was obtained. There were no procedural complications. Imaging diagnosis: FCD versus adenosis versus DCIS. Pathologic diagnosis: adenosis, small radial sclerosing lesion completely excised Procedure Note Eleno Christian MD - 07/28/2013 VACUUM ASSISTED STEREOTACTIC GUIDED BIOPSY OF THE RIGHT BREAST ON07/26/13: Informed consent was obtained. Using sterile technique and 1% lidocaineused for local anesthesia, a skin incision was made and a biopsy was performedfrom a lateral approach in the Prone Unit using 2D stereotactic guidance forimage guidance. Clinical indication: Right breast 10mm cluster of calcifications in theupper, outer quadrant at 1000, 8cm from the nipple. An AccutFit Lorad Stage drape was used to cover the track of the biopsydevice. 9-gauge Eviva Regular device 8 core biopsy specimens obtained. The specimen was X-rayed; the calcifications are present on specimendigital X-ray. A SMark Eviva-Stereo 13 Cylinder marker clip was placed. Cranio-caudal and lateral digital mammography performed to determine biopsy markerplacement, which was shown to be 1 cm from the biopsy site in lateral direction. Satisfactory sampling was obtained. There were no procedural complications. Imaging diagnosis: FCD versus adenosis versus DCIS. Pathologic diagnosis: adenosis, small radial sclerosing lesion completely excised IMPRESSION Impression: concordant Recommendation: f/u mammography in one year. As discussed with Ms. Mottby Dr. Christian on 07/28/13. I performed the procedure without a resident. Alia Fraire MD IMG MAMMO ORDERABLES * MAMMO S/P Localization device images (BX, Needle Loc) (07/26/2013 11:58 AM EDT) Anatomical Region Laterality Modality Breast N/A Mammography 07/26/2013 11:5 8 AM EDT Impressions 07/28/2013 5:26 PM EDT Impression: concordant Recommendation: f/u mammography in one year. ??As discussed with Ms. Mott by Dr. Christian on 07/28/13. ?? I performed the procedure without a resident. Narrative 07/28/2013 5:26 PM EDT VACUUM ASSISTED STEREOTACTIC GUIDED BIOPSY OF THE RIGHT BREAST ON 07/26/13: Informed consent was obtained. Using sterile technique and 1% lidocaine used for local anesthesia, a skin incision was made and a biopsy was performed from a lateral approach in the Prone Unit using 2D stereotactic guidance for image guidance. Clinical indication: Right breast 10mm cluster of calcifications in the upper, outer quadrant at 1000, 8cm from the nipple. An AccutFit Lorad Stage drape was used to cover the track of the biopsy device. ?? 9-gauge Eviva Regular device 8 core biopsy specimens obtained. The specimen was X-rayed; the calcifications are present on specimen digital X-ray. A SMark Eviva-Stereo 13 Cylinder marker clip was placed. Cranio-caudal and lateral digital mammography performed to determine biopsy marker placement, which was shown to be 1 cm from the biopsy site in lateral direction. Satisfactory sampling was obtained. There were no procedural complications. Imaging diagnosis: FCD versus adenosis versus DCIS. Pathologic diagnosis: adenosis, small radial sclerosing lesion completely excised Procedure Note Eleno Christian MD - 07/28/2013 VACUUM ASSISTED STEREOTACTIC GUIDED BIOPSY OF THE RIGHT BREAST ON07/26/13: Informed consent was obtained. Using sterile technique and 1% lidocaineused for local anesthesia, a skin incision was made and a biopsy was performedfrom a lateral approach in the Prone Unit using 2D stereotactic guidance forimage guidance. Clinical indication: Right breast 10mm cluster of calcifications in theupper, outer quadrant at 1000, 8cm from the nipple. An AccutFit Lorad Stage drape was used to cover the track of the biopsydevice. 9-gauge Eviva Regular device 8 core biopsy specimens obtained. The specimen was X-rayed; the calcifications are present on specimendigital X-ray. A SMark Eviva-Stereo 13 Cylinder marker clip was placed. Cranio-caudal and lateral digital mammography performed to determine biopsy markerplacement, which was shown to be 1 cm from the biopsy site in lateral direction. Satisfactory sampling was obtained. There were no procedural complications. Imaging diagnosis: FCD versus adenosis versus DCIS. Pathologic diagnosis: adenosis, small radial sclerosing lesion completely excised IMPRESSION Impression: concordant Recommendation: f/u mammography in one year. As discussed with Ms. Mottby Dr. Christian on 07/28/13. I performed the procedure without a resident. Alia Fraire MD IMG MAMMO ORDERABLES * Mammo stereotactic (07/26/2013 11:57 AM EDT) Anatomical Region Laterality Modality Breast N/A Mammography 07/26/2013 11:5 7 AM EDT Impressions 07/28/2013 5:26 PM EDT Impression: concordant Recommendation: f/u mammography in one year. ??As discussed with Ms. Mott by Dr. Christian on 07/28/13. ?? I performed the procedure without a resident. Narrative 07/28/2013 5:26 PM EDT VACUUM ASSISTED STEREOTACTIC GUIDED BIOPSY OF THE RIGHT BREAST ON 07/26/13: Informed consent was obtained. Using sterile technique and 1% lidocaine used for local anesthesia, a skin incision was made and a biopsy was performed from a lateral approach in the Prone Unit using 2D stereotactic guidance for image guidance. Clinical indication: Right breast 10mm cluster of calcifications in the upper, outer quadrant at 1000, 8cm from the nipple. An AccutFit Lorad Stage drape was used to cover the track of the biopsy device. ?? 9-gauge Eviva Regular device 8 core biopsy specimens obtained. The specimen was X-rayed; the calcifications are present on specimen digital X-ray. A SMark Eviva-Stereo 13 Cylinder marker clip was placed. Cranio-caudal and lateral digital mammography performed to determine biopsy marker placement, which was shown to be 1 cm from the biopsy site in lateral direction. Satisfactory sampling was obtained. There were no procedural complications. Imaging diagnosis: FCD versus adenosis versus DCIS. Pathologic diagnosis: adenosis, small radial sclerosing lesion completely excised Procedure Note Eleno Christian MD - 07/28/2013 VACUUM ASSISTED STEREOTACTIC GUIDED BIOPSY OF THE RIGHT BREAST ON07/26/13: Informed consent was obtained. Using sterile technique and 1% lidocaineused for local anesthesia, a skin incision was made and a biopsy was performedfrom a lateral approach in the Prone Unit using 2D stereotactic guidance forimage guidance. Clinical indication: Right breast 10mm cluster of calcifications in theupper, outer quadrant at 1000, 8cm from the nipple. An AccutFit Lorad Stage drape was used to cover the track of the biopsydevice. 9-gauge Eviva Regular device 8 core biopsy specimens obtained. The specimen was X-rayed; the calcifications are present on specimendigital X-ray. A SMark Eviva-Stereo 13 Cylinder marker clip was placed. Cranio-caudal and lateral digital mammography performed to determine biopsy markerplacement, which was shown to be 1 cm from the biopsy site in lateral direction. Satisfactory sampling was obtained. There were no procedural complications. Imaging diagnosis: FCD versus adenosis versus DCIS. Pathologic diagnosis: adenosis, small radial sclerosing lesion completely excised IMPRESSION Impression: concordant Recommendation: f/u mammography in one year. As discussed with Ms. Jorje Christian on 07/28/13. I performed the procedure without a resident. Alia Fraire MD IMG MAMMO ORDERABLES * Mammo direct digital unilateral (07/20/2013 10:23 AM EDT) Anatomical Region Laterality Modality Breast N/A Mammography 07/20/2013 10:2 3 AM EDT Narrative 07/20/2013 4:51 PM EDT RIGHT DIAGNOSTIC MAMMOGRAM ON 07/20/13: DIAGNOSTIC IMAGING SUMMARY: RIGHT BREAST LESION 1: SUSPICIOUS (BIRADS Category 4). Finding: Amorphous, mildly pleomorphic microcalcifications. Size: 10mm. Location: 1000, 7cm from the nipple. Recommendation: Stereotactic guided biopsy which has been scheduled for 07/26/13 at 10:00am. Preliminary report E-mailed to Dr. Lolly Oliveira on 07/20/13. NARRATIVE: CLINICAL INDICATION: Callback from outside interpretation performed on 07/17/13 for calcifications in the Right breast. TECHNIQUE: Additional views of the Right breast obtained in the mag ML and full field ML projections with direct digital capture. COMPARISON: Outside Right diagnostic mammogram 07/14/13, bilateral mammogram 07/06/13, 07/04/12 and 06/29/11. FINDINGS: Additional magnification ML view re-demonstrates a 10mm group of microcalcifications in the upper, outer Right breast at the 1000 position, 7cm from the nipple. While there are scattered, layering milk of calcium seen on the magnification view, this group does not layer and, therefore, are not sales and marketing representative of milk of calcium. Again, these have an amorphous and punctate appearance and remain indeterminate. Stereotactic guided biopsy is recommended. Procedure Note Alia Fraire MD - 07/20/2013 RIGHT DIAGNOSTIC MAMMOGRAM ON 07/20/13: DIAGNOSTIC IMAGING SUMMARY: RIGHT BREAST LESION 1: SUSPICIOUS (BIRADS Category 4). Finding: Amorphous, mildly pleomorphic microcalcifications. Size: 10mm. Location: 1000, 7cm from the nipple. Recommendation: Stereotactic guided biopsy which has been scheduled for07/26/13 at 10:00am. Preliminary report E-mailed to Dr. Lolly Oliveira on 07/20/13. NARRATIVE: CLINICAL INDICATION: Callback from outside interpretation performed on07/17/13 for calcifications in the Right breast. TECHNIQUE: Additional views of the Right breast obtained in the mag ML andfull field ML projections with direct digital capture. COMPARISON: Outside Right diagnostic mammogram 07/14/13, bilateral mammogram 07/06/13, 07/04/12 and 06/29/11. FINDINGS: Additional magnification ML view re-demonstrates a 10mm group of microcalcifications in the upper, outer Right breast at the 1000 position,7cm from the nipple. While there are scattered, layering milk of calcium seenon the magnification view, this group does not layer and, therefore, are not sales and marketing representative of milk of calcium. Again, these have an amorphous andpunctate appearance and remain indeterminate. Stereotactic guided biopsy isrecommended. Alia Fraire MD IMG MAMMO ORDERABLES documented in this encounter Visit Diagnoses Diagnosis Mammographic microcalcification- Primary Mammographic microcalcification Mammographic microcalcification Mammographic microcalcification Mammographic microcalcification documented in this encounter Care Teams Nurse Ob Relationship Specialty Start Date End Date Lolly Oliveira MD [address] [place] [address] PCP - General 07/17/13 documented as of this encounter
--- OUTSIDE RECORDS SUMMARY | 2023-10-13 11:51 | XMS_ITS | Encounter Summary ---
Author Organization [facility] [place] [address] Care Team Providers Care Exhibit Carpenter Name Role Phone Lolly Oliveira MD Primary Care Provider [phone] Encounter Details Date Type Department Care Team (Latest Contact Info) Description 07/26/2013 9:45 AM EDT - 07/26/2013 11:59 PM EDT Hospital Encounter [place] [address] Mammographic microcalcification Social History Tobacco Use Types Packs/Day Years [...] AM EDT Hospital Encounter Non-[place] [address] Arrived documented as of this encounter Procedures Procedure Name Priority Date/Time Associated Diagnosis Comments MAMMO S/P LOCALIZATION DEVICE IMAGES (BX, NEEDLE LOC) Routine 07/26/2013 11:58 AM EDT Mammographic microcalcification documented in this encounter Results * MAMMO S/P Localization device images (BX, [...] resident. Alia Fraire MD IMG MAMMO ORDERABLES documented in this encounter Visit Diagnoses Diagnosis Mammographic microcalcification documented in this encounter Care Teams Exhibit Carpenter Relationship Specialty Start Date End Date Lolly Oliveira MD [address] [place] [address] PCP - General 07/17/13 documented as of this encounter
--- OUTSIDE RECORDS SUMMARY | 2023-10-13 11:51 | XMS_ITS | Encounter Summary ---
Author Organization [facility] [place] [address] Care Team Providers Care Logistics Lead Name Role Phone Lolly Oliveira MD Primary Care Provider [phone] Encounter Details Date Type Department Care Team (Late st Contact Info) Description 04/01/2021 3:30 PM EST Office Visit Dermatology at [address] [phone] Clay Ramírez MD [address], [place] [address] Psoriasis, guttate Social History Tobacco Use Types Packs/Day Years Used Date Smoking Tobacco: Never Sex and Gender Information Value Date Recorded Sex Assigned at Not on file Gender Identity Not on file Sexual Orientation Not on file documented as of this encounter Progress Notes * Clay Ramírez MD - 04/01/2021 3:30 PM EST 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 I last saw her in 2014 for benign skin examination. She referred today by Elena Raymond NP and Lolly Oliveira MD. apparently in December she developed a rash after having astaph strep sinusitis and being started on Augmentin. Despite cessation of the Augmentin the rash co ntinued and is involved the upper and lower extremities and the torso. 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 She is gone through now 3 of the 80 g tubes of the triamcinolone. 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 However she had a paternal cousin who [...] AM EDT Hospital Encounter [place] [address] Arrived documented as of this encounter Visit Diagnoses Diagnosis Psoriasis, guttate Other psoriasis documented in this encounter Care Teams Logistics Lead Relationship Specialty Start Date End Date Lolly Oliveira MD [address] [place] [address] PCP - General 07/17/13 documented as of this encounter
--- OUTSIDE RECORDS SUMMARY | 2023-10-13 11:51 | XMS_ITS | Encounter Summary ---
Author Organization [facility] [place] [address] Care Team Providers Care Gear Cutter Name Role Phone Lolly Oliveira MD Primary Care Provider [phone] Reason for Visit * Reason Comments Follow-up Encounter Details Date Type Department Care Team (Late st Contact Info) Description 06/06/2021 8:45 AM EDT Office Visit Dermatology at [address] [address] Clay Ramírez MD [address] [facility] [facility], [place] [address] Psoriasis, guttate Social History Tobacco Use Types Packs/Day Years Used Date Smoking Tobacco: Never Sex and Gender Information Value Date Recorded Sex Assigned at Not on file Gender Identity Not on file Sexual Orientation Not on file documented as of this encounter Progress Notes * Clay Ramírez MD - 06/06/2021 8:45 AM EDT 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 Physical examination reveals a few minimal macules still present on the anterior shins but the torso the arms forearms upper legs have cleared. She [...] beginning next week Mondays and Wednesdays only for 1 month and come back to once weekly [...] AM EDT Hospital Encounter [place] [phone] Arrived documented as of this encounter Visit Diagnoses Diagnosis Psoriasis, guttate Other psoriasis documented in this encounter Care Teams Gear Cutter Relationship Specialty Start Date End Date Lolly Oliveira MD [address] [place] [address] PCP - General 07/17/13 documented as of this encounter
--- OUTSIDE RECORDS SUMMARY | 2023-10-13 11:51 | XMS_ITS | Encounter Summary ---
Author Organization [facility] [address] Care Team Providers Care Store Administrative Assistant Name Role Phone Lolly Oliveira MD Primary Care Provider [phone] Encounter Details Date Type Department Care Team (Latest Contact Info) Description 07/20/2013 9:26 AM EDT - 07/20/2013 11:59 PM EDT Hospital Encounter [place] [phone] CLINIC, Lolly So MD [address] [place], [place] [id number] Mammographic microcalcification Discharge Disposition: Home Social History Tobacco Use [...] AM EDT Hospital Encounter Non-[place] [phone] Arrived documented as of this encounter Procedures Procedure Name Priority Date/Time Associated Diagnosis Comments MAMMO DIRECT DIGITAL UNILATERAL Routine 07/20/2013 10:23 AM EDT Mammographic microcalcification documented in this encounter Results * Mammo direct digital unilateral (07/20/2013 10:23 [...] does not layer and, therefore, are not underwriting account representative of milk of calcium. Again, these [...] does not layer and, therefore, are not underwriting account representative of milk of calcium. Again, these have an amorphous andpunctate appearance and remain indeterminate. Stereotactic guided biopsy isrecommended. Alia Fraire MD IMG MAMMO ORDERABLES documented in this encounter Visit Diagnoses Diagnosis Mammographic microcalcification documented in this encounter Care Teams Store Administrative Assistant Relationship Specialty Start Date End Date Lolly Oliveira MD [address] [place] [address] PCP - General 07/17/13 documented as of this encounter
--- OUTSIDE RECORDS SUMMARY | 2023-10-13 11:51 | XMS_ITS | Encounter Summary ---
[place] [address] Care Team Providers Care Neon Sign Servicer Name Role Phone Lolly Oliveira MD Primary Care Provider Encounter Details Date Type Department Care Team (Latest Contact Info) Description 07/26/2013 9:45 AM EDT - 07/26/2013 11:59 PM EDT Hospital [place] [address] Mammographic microcalcification Social History Tobacco Use Types [...] AM EDT Hospital Encounter Non-[place] [address] Arrived documented as of this encounter Procedures Procedure Name Priority Date/Time Associated Diagnosis Comments SURGICAL PATHOLOGY REPORT Routine 07/26/2013 12:12 PM EDT MAMMO SPECIMEN IMAGING DURING BIOPSY Routine 07/26/2013 11:58 AM EDT Mammographic microcalcification documented in this encounter Results * Surgical Pathology Report (07/26/2013 12:12 PM EDT) Final Diagnosis ? [facility] ? Provider: ?? ELENO CHRISTIAN ?? Pt. Name: ?? JING ALVARENGA ? Acc #: ?[id number] ?Pt. ? Col Date: ?? 07/26/2013 ? /Sex: ?1950,(62 years),Female ? Rec Date: ?? 07/26/2013 ? LOC: ?3S ? SURGICAL PATHOLOGY ? ---Pathologic Diagnosis--- ? Needle biopsies: ?Right breast ? Diagnosis: ?1. 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 2. Small radial sclerosing lesion with usual ductal ?hyperplasia (appears largely excised) ? Microcalcifications: ??Associated with adenosis, columnar cell ? change/hyperplasia, and benign lobules ? CR-0 ? 07/28/13 ? YAJAIRA ? 07/28/13 Verified by: ? Kwame Stokes MD ? Pathologist ? (Electronic Signature) ? The attending pathologist whose signature appears on this report has ? reviewed all diagnostic slides and has edited the gross and/or ? microscopic portion of the report in rendering the final pathologic ? diagnosis. ? ---Comment--- ? Additional levels (A1,A2) were examined. ? ---Microscopic Description--- ? Immunohistochemistry Studies: ? Formalin-fixed, paraffin-embedded tissue sections are studied using the B- ? SA system technique with appropriate positive and negative controls. ??These ? IHC studies provide the pathologist with adjunctive diagnostic information. ? Antibody specificity has been verified by testing antibodies on a series of ? in-house tissues with known immunohistochemical performance ? characteristics. The clinical interpretation of any antibody positive ? staining or its absence is evaluated within the context of clinical ? presentation, morphology, histopathological criteria and other diagnostic ? tests. ? Block ?Antibody ? Result (Positive/Negative) ? A2 ? E-cadherin ? Negative for lobular neoplasia ? ---Gross Description--- ? A - Received in two containers: ? 1 - Labeled/Fixative: Right breast calcifications, formalin. ? Quantity/Size: ??, Ranging from 1.0-2.8 cm. ? Description: Partially fragmented, fibrofatty needle core biopsies. ? [facility] ? Provider: ?? ELENO CHRISTIAN ?? Pt. Name: ?? JING ALVARENGA ? Acc #: ?[id number] ?Pt. ? Col Date: ?? 07/26/2013 ? /Sex: ?1950,(62 years),Female ? Rec Date: [...] ? Clinical Diagnosis: ? FCD, adenosis, DCIS 07/28/2013 8:29 AM EDT [facility] BREAST STRUCTURE / Unknown 07/26/2013 12:12 PM EDT 07/26/2013 12:12 PM EDT Eleno Christian MD PATHOLOGY/CYTOLOGY O RDERABLES Performing Organization Address City/State/[facility] Co de Phone Number [facility] [place] [phone] * Mammo Specimen Imaging During Biopsy (07/26/2013 11:58 AM EDT) Anatomical Region Laterality Modality Breast N/A Mammography 07/26/2013 11:5 8 AM EDT Impressions 07/28/2013 5:26 PM EDT Impression: concordant Recommendation: f/u mammography in one year. ??As discussed with Alida Lyle by Dr. Christian on 07/28/13. ?? I [...] microcalcification documented in this encounter Care Teams Neon Sign Servicer Relationship Specialty Start Date End Date Lolly Oliveira MD [address] [place] [address] PCP - General 07/17/13 documented as of this encounter
--- OUTSIDE RECORDS SUMMARY | 2023-10-13 11:51 | XMS_ITS | Encounter Summary ---
Author Organization [facility] [place] [address] Care Team Providers Care Air Brake Operator Name Role Phone Lolly Oliveira MD Primary Care Provider [phone] Encounter Details Date Type Department Care Team (Late st Contact Info) Description 06/29/2011 [place] [phone] Eleno Christian MD [facility] [place] [address] Social History Tobacco Use Types Packs/Day Years [...] AM EDT Hospital Encounter [place] [phone] Arrived documented as of this encounter Procedures Procedure Name Priority Date/Time Associated Diagnosis Comments FILM LIBRARY STORAGE ONLY MAMMO Routine 06/29/2011 8:10 AM EDT documented in this encounter Results * Film Library- Storage only Mammo (06/29/2011 8:10 AM EDT) Anatomical Region Laterality Modality Other 06/29/2011 8:10 AM EDT Narrative 07/17/2013 8:57 AM EDT This is a Non-reportable exam Procedure Note 07/17/2013 This is a Non-reportable exam Eleno Christian MD [facility] [place] [place] FILM LIBRARY ORD ERABLES documented in this encounter Visit Diagnoses Not on filedocumented in this encounter Care Teams Air Brake Operator Relationship Specialty Start Date End Date Lolly Oliveira MD [address] [place] [address] PCP - General 07/17/13 documented as of this encounter
--- OUTSIDE RECORDS SUMMARY | 2023-10-13 11:51 | XMS_ITS | Encounter Summary ---
Author Organization [facility] [place] [address] Care Team Providers Care Wire Basket Maker Name Role Phone Lolly Oliveira MD Primary Care Provider [phone] Encounter Details Date Type Department Care Team (Latest Contact Info) Description 07/26/2013 9:44 AM EDT - 07/26/2013 11:59 PM EDT Hospital Encounter [place] [phone] CLINIC, Lolly So MD [address] [place], [place] [id number] Mammographic microcalcification Discharge Disposition: Home Social History [...] AM EDT Hospital Encounter Non-Invasive [place] [phone] Arrived documented as of this encounter Procedures Procedure Name Priority Date/Time Associated Diagnosis Comments MAMMO STEREOTACTIC BIOPSY Routine 07/26/2013 11:57 AM EDT Mammographic microcalcification SPECIMEN TO PATHOLOGY Routine 07/26/2013 11:28 AM EDT documented in this encounter Results * Mammo stereotactic (07/26/2013 11:57 AM EDT) [...] are present on specimen digital X-ray. A [employer].comiva-Stereo 13 Cylinder marker clip was placed. Cranio-caudal [...] Alia Fraire MD IMG MAMMO ORDERABLES * Specimen to Pathology (surgical or derm) (07/26/2013 11:28 AM EDT) AP Specimen 07/26/2013 11:2 8 AM EDT 07/26/2013 11:28 AM EDT Narrative LEX DWYER - 07/26/2013 11:28 AM EDT Specimen requisition ordered. ??Separate Pathology report to follow Eleno Christian MD PATHOLOGY/CYTOLOGY O RDERABLES LEX DWYER documented in this encounter Visit Diagnoses Diagnosis Mammographic microcalcification documented in this encounter Administered Medications Inactive Administered Medications - up to 3 most recent administrations Medication Order MAR Action Action Date Dose Rate Site lidocaine (XYLOCAINE) 10 mg/mL (1 %) injection 10 mg 10 mg, Intradermal, ONCE, 1 dose, On Wed07/26/13 at 1145, Routine Given 07/26/2013 11:45 AM EDT 10 mg lidocaine-EPINEPHrine 1 %-1:100,000 injection 20 mL 20 mL, Intradermal, ONCE, 1 dose, On Wed07/26/13 at 1145, Routine Given 07/26/2013 11:45 AM EDT 20 mLs documented in this encounter Care Teams Wire Basket Maker Relationship Specialty Start Date End Date Lolly Oliveira MD [address] [place] [address] PCP - General 07/17/13 documented as of this encounter
--- OUTSIDE RECORDS SUMMARY | 2023-10-13 11:51 | XMS_ITS | Encounter Summary ---
Author Organization [facility] [place] [address] Care Team Providers Care Heater Installer Name Role Phone Unavailable Primary Care Provider Unavailabl e Encounter Details Date Type Department Care Team (Late st Contact Info) Description 07/14/2013 Orders [place] [phone] Eleno Christian MD [facility] [place] [address] Social History Tobacco Use Types Packs/Day Years [...] AM EDT Hospital Encounter Non-Invasive [place] [phone] Arrived documented as of this encounter Visit Diagnoses Not on filedocumented in this encounter
--- OUTSIDE RECORDS SUMMARY | 2023-10-13 11:51 | XMS_ITS | Encounter Summary ---
Author Organization [facility] [place] [address] Care Team Providers Care Completion Engineer Name Role Phone Unavailable Primary Care Provider Unavailabl e Encounter Details Date Type Department Care Team (Late st Contact Info) Description 07/14/2013 External Results XRay at [address] [place] [address] Provider, Scanning Social History Tobacco Use Types Packs/Day Years [...] AM EDT Hospital Encounter Non-[place]vasive [place] [address] Arrived documented as of this encounter Procedures Procedure Name Priority Date/Time Associated Diagnosis Comments MAMMOGRAM SCAN Routine 07/04/2012 MAMMOGRAM SCAN Routine 06/29/2011 MAMMOGRAM SCAN Routine 06/23/2010 MAMMOGRAM SCAN Routine 06/21/2009 documented in this encounter Results * Scan Doc: Mammogram (07/04/2012) Anatomical Region Laterality Modality Other Scanning Provider MEDIA MGR SCAN EXT O RDR/RSLT * Scan Doc: Mammogram (06/29/2011) Anatomical Region Laterality Modality Other Scanning Provider MEDIA MGR SCAN EXT O RDR/RSLT * Scan Doc: Mammogram (06/23/2010) Anatomical Region Laterality Modality Other Scanning Provider MEDIA MGR SCAN EXT O RDR/RSLT * Scan Doc: Mammogram (06/21/2009) Anatomical Region Laterality Modality Other Scanning Provider MEDIA MGR SCAN EXT O RDR/RSLT documented in this encounter Visit Diagnoses Not on filedocumented in this encounter
--- OUTSIDE RECORDS SUMMARY | 2023-10-13 11:51 | XMS_ITS | Encounter Summary ---
Author Organization [facility] [place] [address] Care Team Providers Care Stand Up Comedian Name Role Phone Lolly Oliveira MD Primary Care Provider [phone] Encounter Details Date Type Department Care Team (Late st Contact Info) Description 07/26/2013 [place] [phone] Eleno Christian MD [facility] [place] [address] Social History Tobacco Use Types Packs/Day Years Used Date Smoking Tobacco: Never Assessed Sex and Gender Information Value Date Recorded Sex Assigned at Not on file Gender Identity Not on file Sexual Orientation Not on file documented as of this encounter Progress Notes * Eleno Christian MD - 07/26/2013 10:02 AM [...] AM EDT Hospital Encounter Non-Invasive [place] [address] Arrived documented as of this encounter Visit Diagnoses Not on filedocumented in this encounter Care Teams Stand Up Comedian Relationship Specialty Start Date End Date Lolly Oliveira MD [address] [place] [address] PCP - General 07/17/13 documented as of this encounter
--- OUTSIDE RECORDS SUMMARY | 2023-10-13 11:51 | XMS_ITS | Encounter Summary ---
Author Organization [facility] [place] [address] Care Team Providers Care Manager Of Compensation Name Role Phone Lolly Oliveira MD Primary Care Provider [phone] Encounter Details Date Type Department Care Team (Latest Contact Info) Description 07/17/2013 8:40 AM EDT - 07/17/2013 11:59 PM EDT Hospital Encounter XRay at [address] [place] [phone] CLINIC, [facility] Discharge Disposition: Home Social History Tobacco Use Types Packs/Day Years Used Date Smoking Tobacco: Never Assessed Sex and Gender Information Value Date Recorded Sex Assigned at Not on file Gender Identity Not on file Sexual Orientation Not on file documented as of this encounter Consult Notes * Provider, Hollie - 07/17/2013 7:56 AM EDT documented in this encounter Plan of Treatment Upcoming Encounters Date Type Department Care Team (Late st Contact Info) Description 10/18/2023 10:00 AM EDT Hospital Encounter Non-Invasive Cardiology Lab Replaced By [facility] [place] [address] Arrived documented as of this encounter Visit Diagnoses Not on filedocumented in this encounter Care Teams Manager Of Compensation Relationship Specialty Start Date End Date Lolly Oliveira MD [address] [place] [id number] PCP - General 07/17/13 documented as of this encounter
--- OUTSIDE RECORDS SUMMARY | 2023-10-13 11:51 | XMS_ITS | Encounter Summary ---
Author Organization [facility] [place] [address] Care Team Providers Care Brokerage Coordinator Name Role Phone Lolly Oliveira MD Primary Care Provider [phone] Encounter Details Date Type Department Care Team (Late st Contact Info) Description 10/09/2021 Telephone Dermatology at [address] [address] Nora Meredith LPN Social History [...] Her last treatment for UVB phototherapy was in July. Reviewed with Dr. Ramírez. Apply TAC twice daily at affected areas. If it gets worse call the office. At that time will begin UVB phototherapy again. Reviewed Dr. Mar recommendation with Reg. He voiced understanding and will discuss withLuna. documented in this encounter Plan of Treatment Upcoming Encounters Date Type Department Care Team (Late st Contact Info) Description 10/18/2023 10:00 AM EDT Hospital Encounter Non-[place] [address] Arrived documented as of this encounter Visit Diagnoses Not on filedocumented in this encounter Care Teams Brokerage Coordinator Relationship Specialty Start Date End Date Lolly Oliveira MD [address] [place] [address] PCP - General 07/17/13 documented as of this encounter
--- OUTSIDE RECORDS SUMMARY | 2023-10-13 11:51 | XMS_ITS | Encounter Summary ---
Author Organization [facility] [place] [address] Care Team Providers Care Transportation Engineer Name Role Phone Unavailable Primary Care Provider Unavailabl e Encounter Details Date Type Department Care Team (Late st Contact Info) Description 07/04/2012 [place] [phone] Eleno Christian MD [facility] [place]AG[place]ST[place] [address] Social History Tobacco Use Types Packs/Day Years [...] AM EDT Hospital Encounter Non-[place]vasive [place] [phone] Arrived documented as of this encounter Procedures Procedure Name Priority Date/Time Associated Diagnosis Comments FILM LIBRARY STORAGE ONLY MAMMO Routine 07/04/2012 4:15 PM EDT documented in this encounter Results * Film Library- Storage only Mammo (07/04/2012 4:15 PM EDT) Anatomical Region Laterality Modality Other 07/04/2012 4:15 PM EDT Narrative 07/14/2013 4:30 PM EDT This is a Non-reportable exam Procedure Note 07/14/2013 This is a Non-reportable exam Eleno Christian MD [facility] FILM LIBRARY ORD ERABLES documented in this encounter Visit Diagnoses Not on filedocumented in this encounter
--- OUTSIDE RECORDS SUMMARY | 2023-10-13 11:51 | XMS_ITS | Encounter Summary ---
Author Organization [facility] [place] [address] Care Team Providers Care Coconut Boiler Name Role Phone Lolly Oliveira MD Primary Care Provider [phone] Reason for Visit * Reason Comments Skin Check Encounter Details Date Type Department Care Team (Late st Contact Info) Description 11/23/2014 10:00 AM EDT Office Visit Dermatology at [address] [phone] Clay Ramírez MD [address] [facility], [place] [address] Dermatofibroma; Nevus; Solar lentigo Discharge Disposition: Home Social History Tobacco Use Types Packs/Day Years Used Date Smoking Tobacco: Never Sex and Gender Information Value Date Recorded Sex Assigned at Not on file Gender Identity Not on file Sexual Orientation Not on file documented as of this encounter Progress Notes * Clay Ramírez MD - 11/23/2014 10:38 AM [...] AM EDT Hospital Encounter Non[place] [address] Arrived documented as of this encounter Visit Diagnoses Diagnosis Dermatofibroma Benign neoplasm of skin, site unspecified Nevus Benign neoplasm of skin, site unspecified Solar lentigo Other dyschromia documented in this encounter Care Teams Coconut Boiler Relationship Specialty Start Date End Date Lolly Oliveira MD [address] [place] [address] PCP - General 07/17/13 documented as of this encounter
--- OUTSIDE RECORDS SUMMARY | 2023-10-13 11:51 | XMS_ITS | Encounter Summary ---
[place] [address] Care Team Providers Care Concrete Pump Operator Helper Name Role Phone Lolly Oliveira MD Primary Care Provider [phone] Encounter Details Date Type Department Care Team (Late st Contact Info) Description 07/17/2013 [place] [phone] Lolly Oliveira MD [address] [place], [place] [id number] Social History Tobacco Use Types Packs/Day Years [...] AM EDT Hospital Encounter Non-[place] [address] Arrived documented as of this encounter Procedures Procedure Name Priority Date/Time Associated Diagnosis Comments REQUEST FOR 2ND READ MAMMO Routine 07/17/2013 8:45 AM EDT documented in this encounter Results * Request for 2nd read Mammo (07/17/2013 8:45 AM EDT) Anatomical Region Laterality Modality Other 07/17/2013 8:45 AM EDT Narrative 07/17/2013 3:57 PM EDT INTERPRETATION OF OUTSIDE MAMMOGRAMS (PERFORMED ON 07/06/13 AND 07/14/13) FROM [facility] DATED 07/17/13: ?? DIAGNOSTIC IMAGING SUMMARY: ?? RIGHT BREAST LESION 1: SUSPICIOUS (BIRADS Category 4). ?? Finding: Amorphous, mildly pleomorphic microcalcifications. ?? Size: 10mm. ?? Location: 1000, 8cm from the nipple. ?? Recommendation: Stereotactic guided biopsy preceded by true lateral + / - true lateral magnification view to exclude the possibility of milk of calcium. ? LEFT BREAST: NEGATIVE (BIRADS Category 1). ? NARRATIVE: ?? CLINICAL INDICATION: I have been asked to consult on this patient by Dr. Lolly Oliveira because she believes a review of this study may change or alter the care of this patient. ?? HISTORY: Outside recommendation for biopsy of calcifications in the Right breast. ?? COMPARISON: Bilateral digital mammogram 07/04/12, 06/29/11, 06/23/10 and 06/21/09. ?? TECHNIQUE: The following views are available for interpretation: 07/06/13 bilateral mammogram with bilateral CC and MLO views, 07/14/13 Right diagnostic mammogram with Right mag CC (x2) and Right mag MLO views. ?? FINDINGS: The breasts are comprised of scattered densities. ?? The Left breast demonstrates a stable fibroglandular pattern without significant interval change. There are diffuse punctate calcifications seen throughout the Left breast without a single worrisome cluster. There is no mammographic evidence of malignancy seen within the Left breast. ?? In the Right breast there are punctate and amorphous microcalcifications in the upper, outer Right breast. Many of these have been stable on prior mammograms dating back to 2009 and some have the suggestion of layering likely representing milk of calcium. However, there is a 10mm group of microcalcifications in the upper, outer quadrant of the Right breast at approximately the 1000 position, 8cm from the nipple which have an amorphous morphology and may have slightly increased since the prior years. There are no true lateral or magnification true lateral views to exclude milk of calcium, though on the magnification MLO view these have a somewhat pleomorphic appearance and remain indeterminate. Therefore, biopsy is recommended. ? Film and interpretation reviewed by the attending Procedure Note Alia Fraire MD - 07/17/2013 INTERPRETATION OF OUTSIDE MAMMOGRAMS (PERFORMED ON [facility]/06/13 AND [facility]/14/13) [facility]: DIAGNOSTIC IMAGING SUMMARY: RIGHT BREAST LESION 1: SUSPICIOUS (BIRADS Category 4). Finding: Amorphous, mildly pleomorphic microcalcifications. Size: 10mm. Location: 1000, 8cm from the nipple. Recommendation: Stereotactic guided biopsy preceded by true lateral + / -true lateral magnification view to exclude the possibility of milk of calcium. LEFT BREAST: NEGATIVE (BIRADS Category 1). NARRATIVE: CLINICAL INDICATION: I have been asked to consult on this patient by Dr.Sarah Oliveira because she believes a review of this study may change or alterthe care of this patient. HISTORY: Outside recommendation for biopsy of calcifications in the Right breast. COMPARISON: Bilateral digital mammogram 07/04/12, 06/29/11, 06/23/10 and06/21/09. TECHNIQUE: The following views are available for interpretation: 07/06/13 bilateral mammogram with bilateral CC and MLO views, 07/14/13 Rightdiagnostic mammogram with Right mag CC (x2) and Right mag MLO views. FINDINGS: The breasts are comprised of scattered densities. The Left breast demonstrates a stable fibroglandular pattern without significant interval change. There are diffuse punctate calcificationsseen throughout the Left breast without a single worrisome cluster. There is no mammographic evidence of malignancy seen within the Left breast. In the Right breast there are punctate and amorphous microcalcificationsin the upper, outer Right breast. Many of these have been stable on priormammograms dating back to 2009 and some have the suggestion of layering likely representing milk of calcium. However, there is a 10mm group of microcalcifications in the upper, outer quadrant of the Right breast at approximately the 1000 position, 8cm from the nipple which have anamorphous morphology and may have slightly increased since the prior years. Thereare no true lateral or magnification true lateral views to exclude milk ofcalcium, though on the magnification MLO view these have a somewhat pleomorphic appearance and remain indeterminate. Therefore, biopsy is recommended. Film and interpretation reviewed by the attending Lolly Oliveira MD IMG OUTSIDE INTERPRE TATION ORDERABLES documented in this encounter Visit Diagnoses Not on filedocumented in this encounter Care Teams Concrete Pump Operator Helper Relationship Specialty Start Date End Date Lolly Oliveira MD [address] [place] [address] PCP - General 07/17/13 documented as of this encounter
[2023-10-15 11:19] VITALS: BP 145/74; PULSE 64
--- OUTSIDE RECORDS SUMMARY | 2023-10-15 11:19 | XMS_ITS | Encounter Summary ---
Author Organization [facility] [place] [address] Care Team Providers Care Staffing Operations Manager Name Role Phone Lolly Oliveira MD Primary Care Provider Encounter Details Date Type Department Care Team (Late st Contact Info) Description 03/17/2023 Telephone Cardiology at [address] [phone] Saranya Ma Social History Tobacco Use Types [...] 9:43 AM EST Echo order faxed to [facility] at [phone]. No Prior auth needed. Ref #:[id number]. Saranya Ma Sr. Clinical Procedure Tonal Regulator/Leather Grainer documented in this encounter Plan of Treatment Upcoming Encounters Date Type Department Care Team (Late st Contact Info) Description 10/18/2023 10:00 AM EDT Hospital Encounter Non-[place] [address] Arrived documented as of this encounter Visit Diagnoses Not on filedocumented in this encounter Care Teams Staffing Operations Manager Relationship Specialty Start Date End Date Lolly Oliveira MD [address] [place] [address] PCP - General 07/17/13 documented as of this encounter
--- OUTSIDE RECORDS SUMMARY | 2023-10-15 11:19 | XMS_ITS | Encounter Summary ---
Author Organization [facility] Address [facility] [place] [address] Care Team Providers Care Rug Touch Up Painter Name Role Phone Lolly Oliveira MD Primary Care Provider [phone] Encounter Details Date Type Department Care Team (Late st Contact Info) Description 11/11/2022 Orders Only Cardiology at [address] [phone] Lalit Mcmahon MD [facility] [address] Nonischemic cardiomyopathy Social History Tobacco Use Types Packs/Day Years Used Date Smoking Tobacco: Never Alcohol Use Standard Drinks/Week Comments Not Currently 0 (1 standard drink = 0.6 oz pur e alcohol) [facility] Inpatient Questions Answer Date Recorded Does [...] AM EDT Hospital Encounter [place] [phone] Arrived documented as of this encounter Visit Diagnoses Diagnosis Nonischemic cardiomyopathy Other primary cardiomyopathies documented in this encounter Care Teams Rug Touch Up Painter Relationship Specialty Start Date End Date Lolly Oliveira MD [address] [place] [address] PCP - General 07/17/13 documented as of this encounter
--- OUTSIDE RECORDS SUMMARY | 2023-10-15 11:19 | XMS_ITS | Encounter Summary ---
Author Organization [facility] Address [address] [place] [address] Care Team Providers Care Glue Mixer Name Role Phone Lolly Oliveira MD Primary Care Provider [phone] Encounter Details Date Type Department Care Team (Late st Contact Info) Description 03/21/2019 Lab Requisition [facility] Pathology & Laboratory Medicine - [address] [address] Unknown, Provider, Social History Tobacco Use Types [...] 211 - 911 pg/mL 03/22/2019 11:[address] [facility] Blood VENOUS BLOOD / Unknown 03/16/2019 9:25 EST 03/21/2019 21:35 EST Provider Unknown CHEMISTRY & BLOOD GA S ORDERABLES [facility] [address] [place] [address] documented in this encounter Visit Diagnoses Not on filedocumented in this encounter Care Teams Glue Mixer Relationship Specialty Start Date End Date Lolly Oliveira MD [address] [place] [address] PCP - General 11/13/08 documented as of this encounter
--- OUTSIDE RECORDS SUMMARY | 2023-10-15 11:19 | XMS_ITS | Encounter Summary ---
Author Organization [facility] [place] [address] Care Team Providers Care Fruit Room Hand Name Role Phone Lolly Oliveira MD Primary Care Provider [phone] Encounter Details Date Type Department Care Team (Latest Contact Info) Description 01/21/2023 10:00 AM EST - 01/21/2023 11:59 PM EST Hospital Encounter [place] [address] Discharge Disposition: Home Social History Tobacco Use [...] with spacer fluticasone propionate (Flonase) 50 mcg/actuation [place], Suspension 1 spray by Each Nare route [...] AM EDT Hospital Encounter Non-[place] [address] Arrived documented as of this [...] on filedocumented in this encounter Care Teams Fruit Room Hand Relationship Specialty Start Date End Date Lolly Oliveira MD [address] [place] [address] PCP - General 07/17/13 documented as of this encounter
--- OUTSIDE RECORDS SUMMARY | 2023-10-15 11:19 | XMS_ITS | Encounter Summary ---
Author Organization [facility] Address [address] [place] [address] Care Team Providers Care Quality Assurance Engineer Name Role Phone Lolly Oliveira MD Primary Care Provider Encounter Details Date Type Department Care Team (Late st Contact Info) Description 02/11/2021 Lab Requisition [facility] Pathology & Laboratory Medicine - [address] [address] Outr Resulting Lab, Provider Social History Tobacco [...] Outr Resulting Lab MICROBIOLOGY - GENERAL ORDERABLES [facility] [address] [place] [address] * COVID-19 TESTING (02/11/2021 8:00 EST) COVID-19 rt-PCR Result Negative Negative 02/12/2021 14:17 EST [facility] Comment: This test has not [...] was performed using the med SARS-CoV-2 assay ([employer] on the Med 6800 System Performing Lab Med 6800 [facility] 02/12/2021 14:17 EST [facility] Swab 02/11/2021 8:00 EST 02/11/2021 22:22 EST Provider Outr Resulting Lab MICROBIOLOGY - GENERAL ORDERABLES [facility] [address] [place] [address] documented in this encounter Visit Diagnoses Not on filedocumented in this encounter Care Teams Quality Assurance Engineer Relationship Specialty Start Date End Date Lolly Oliveira MD [address] [place] [address] PCP - General 11/13/08 documented as of this encounter
--- OUTSIDE RECORDS SUMMARY | 2023-10-15 11:19 | XMS_ITS | Encounter Summary ---
Author Organization [facility] Address [address] [place] [address] Care Team Providers Care Senior Compliance Analyst Name Role Phone Lolly Oliveira MD Primary Care Provider [phone] Encounter Details Date Type Department Care Team (Late st Contact Info) Description 05/29/2002 Results Only [facility] [address] [place] [address] Silvia Diehl, [address] [place] [phone] Social History Tobacco Use Types Packs/Day Years [...] ? JING MOTT ? Accession #: ? [id number] : ? 1950 (Age: 51) ??F ?Collect Date: ? 05/29/2002 Location: ? [facility] ? Receive Date: ? 05/31/2002 Provider: ?SILVIA DIEHL WINE CONSULTANT Copy to: ? Specimen/Source: ?ThinPrep Pap Test, [...] Report [facility] 05/29/2002 05/31/2002 Silvia Diehl WINE CONSULTANT PATHOLOGY ORDERABLES [facility] [address] [place] [address] documented in this encounter Visit Diagnoses Not on filedocumented in this encounter Care Teams Senior Compliance Analyst Relationship Specialty Start Date End Date Lolly Oliveira MD [address] [place] [address] PCP - General 11/13/08 documented as of this encounter
--- OUTSIDE RECORDS SUMMARY | 2023-10-15 11:19 | XMS_ITS | Encounter Summary ---
Author Organization [facility] Address [facility] [place] [address] Care Team Providers Care Flame Hardening Machine Operator Name Role Phone Lolly Oliveira MD Primary Care Provider [phone] Reason for Referral * Diagnostic Test (Routine) - Closed Specialty Diagnoses / Procedures Referred By Contkkoi t Referred To Contact Cardiology Diagnoses Nonischemic cardiomyopathy Biventricular ICD (implantable cardioverter-defibrillator) in place Procedures Echocardiogram Transthoracic Lalit Mcmahon MD [facility] [address] [place] [id number] Referral ID Status Reason Start Date Expiration Date V isits Requested Visits Authorized [id number] Closed Specialty Service Requested 03/15/2023 09/11/2023 1 1 Encounter Details Date Type Department Care Team (Late st Contact Info) Description 03/15/2023 Orders Only Cardiology at [address] [address] Lalit Mcmahon MD [facility] [place] [address] Nonischemic cardiomyopathy; Biventricular ICD (implantable cardioverter-defibrill ator) in place Social History Tobacco Use Types Packs/Day Years Used Date Smoking Tobacco: Never Alcohol Use Standard Drinks/Week Comments Not Currently 0 (1 standard drink = 0.6 oz pur e alcohol) [facility] Inpatient Questions Answer Date Recorded Does [...] AM EDT Hospital Encounter [place] [address] Arrived Scheduled Orders Name Type Priority Associated Diagnoses Order Schedule Echocardiogram Transthoracic Echocardiography Routine Nonischemic cardiomyopathy Biventricular ICD (implantable cardioverter-defibr illator) in place Expected: 05/05/2023, Expires: 11/04/2023 documented as of this encounter Visit Diagnoses Diagnosis Nonischemic cardiomyopathy Other primary cardiomyopathies Biventricular ICD (implantable cardioverter-defibrillator) in place documented in this encounter Care Teams Flame Hardening Machine Operator Relationship Specialty Start Date End Date Lolly Oliveira MD [address] [place] [address] PCP - General 07/17/13 documented as of this encounter
--- OUTSIDE RECORDS SUMMARY | 2023-10-15 11:19 | XMS_ITS | Encounter Summary ---
Author Organization [facility] [place] [address] Care Team Providers Care Platinumsmith Name Role Phone Lolly Oliveira MD Primary Care Provider [phone] Encounter Details Date Type Department Care Team (Late st Contact Info) Description 05/18/2023 Telephone Dermatology at [address] [address] Nora Meredith LPN Social History [...] AM EDT Hospital Encounter [place] [address] Arrived documented as of this encounter Visit Diagnoses Not on filedocumented in this encounter Care Teams Platinumsmith Relationship Specialty Start Date End Date Lolly Oliveira MD [address] [place] [address] PCP - General 07/17/13 documented as of this encounter
--- OUTSIDE RECORDS SUMMARY | 2023-10-15 11:19 | XMS_ITS | Encounter Summary ---
Author Organization [facility] Address [address] [place] [address] Care Team Providers Care Lead Shipper Name Role Phone Lolly Oliveira MD Primary Care Provider [phone] Encounter Details Date Type Department Care Team (Late st Contact Info) Description 04/12/2007 Results Only [facility] conversion [address] [place] [address] Lolly Oliveira MD [address] [place], [place] [id number] Social History Tobacco Use Types Packs/Day Years [...] ? JING ALVARENGA ? Accession #: ? [id number] : ? 1950 (Age: 56) ??F ?Collect Date: ? 04/12/2007 Location: ? [facility] ? Receive Date: ? 04/13/2007 Provider: ?LOLLY OLIVEIRA MD Copy to: ? Specimen/Source: ?ThinPrep Pap Test, Cervix/Endocervix, processed on [employer] ThinPrep Imaging System, with manual evaluation Last [...] Oliveira MD PATHOLOGY ORDERABLES [facility] [address] [place] [address] documented in this encounter Visit Diagnoses Not on filedocumented in this encounter Care Teams Lead Shipper Relationship Specialty Start Date End Date Lolly Oliveira MD [address] [place] [address] PCP - General 11/13/08 documented as of this encounter
--- OUTSIDE RECORDS SUMMARY | 2023-10-15 11:19 | XMS_ITS | Encounter Summary ---
Author Organization [facility] Address [address] [place] [address] Care Team Providers Care Bank Analyst Name Role Phone Lolly Oliveira MD Primary Care Provider Encounter Details Date Type Department Care Team (Late st Contact Info) Description 02/20/2020 Lab Requisition [facility] Pathology & Laboratory Medicine - [address] [address] Outr Resulting Lab, Provider Social History Tobacco [...] in accordance with CLIA regulations, College of Japanese Pathologists (CAP) guidelines (May 25, 2019), and FDA guidance (May 06, 2019). This test is only for use under the Food and Drug Administration's Emergency Use Authorization. Swab ENTIRE NASOPHARYNX / Unknown 02/19/2020 16:30 EST 02/20/2020 16:09 EST Provider Outr Resulting Lab MICROBIOLOGY - GENERAL ORDERABLES [facility] [place], [place] * COVID-19 TESTING (02/19/2020 16:30 EST) COVID-19 rt-PCR Result NEGATIVE Negative 02/22/2020 23:41 EST [facility] Comment: 2019-novel Coronavirus (2019-nCoV) not [...] in accordance with CLIA regulations, College of Japanese Pathologists (CAP) guidelines (May 25, 2019), and FDA guidance (May 06, 2019). This test is only for use under the Food and Drug Administration's Emergency Use Authorization. Performing Lab [facility] 02/22/2020 23:41 EST [facility] Swab 02/19/2020 16:3 0 EST 02/20/2020 16:09 EST Provider Outr Resulting Lab MICROBIOLOGY - GENERAL ORDERABLES [facility] [address] [place] [address] [facility] [place], [place] documented in this encounter Visit Diagnoses Not on filedocumented in this encounter Care Teams Bank Analyst Relationship Specialty Start Date End Date Lolly Oliveira MD [address] [place] [address] PCP - General 11/13/08 documented as of this encounter
--- OUTSIDE RECORDS SUMMARY | 2023-10-15 11:19 | XMS_ITS | Encounter Summary ---
Author Organization [facility] Address [address] [place] [address] Care Team Providers Care Zmt Operator Name Role Phone Lolly Oliveira MD Primary Care Provider [phone] Encounter Details Date Type Department Care Team (Late st Contact Info) Description 04/25/2009 Orders Only [facility] Laboratory Services - [facility] [address] [place], [place] [phone] Lolly Oliveira MD [address] [place], [place] [id number] Social History Tobacco Use Types Packs/Day Years [...] ? JING ALVARENGA ? Accession #: ? [id number] ? : ? 1950 (Age: 58) ??F [...] reviewed and electronically signed by: ? Helena Upham, CT(ASCP) ? Report Date: ??04/29/2009 10:38 ? End of Report ? [facility] 04/25/2009 04/26/2009 Lolly Oliveira MD PATHOLOGY ORDERABLES [facility] [address] [place] [address] documented in this encounter Visit Diagnoses Not on filedocumented in this encounter Care Teams Zmt Operator Relationship Specialty Start Date End Date Lolly Oliveira MD [address] [place] [address] PCP - General 11/13/08 documented as of this encounter
--- OUTSIDE RECORDS SUMMARY | 2023-10-15 11:19 | XMS_ITS | Encounter Summary ---
Author Organization [facility] Address [address] [place] [address] Care Team Providers Care Gang Supervisor Name Role Phone Lolly Oliveira MD Primary Care Provider [phone] Encounter Details Date Type Department Care Team (Late st Contact Info) Description 05/27/2021 Lab Requisition [facility] Pathology & Laboratory Medicine - [address] [address] Iman Moran, DO [address] [address] [address] [place], [place] [id number] Encounter for other general examination Social History [...] management options, if applicable. 05/30/2021 13:31 EDT [facility] Final Diagnosis A. COLON, POLYP AT 90 CM, BIOPSY/POLYPECTOM Y: - Tubular adenoma. 05/30/2021 13:31 [facility] Attestation By the signature below, the attending physician certifies that they have 1) personally conducted a gross and/or microscopic examination of the described specimen(s), and/or personally interpreted the results of laboratory testing of the described specimen(s), and 2) personally rendered or confirmed the above diagnosis. 05/30/2021 13:31 [facility] at 1331 Clinical History Severe diverticula and polypectomy x1 05/30/2021 13:31 [facility] Gross Description A. Received in formalin labelled with proper patient identification (initials J, K) and colon polyp x1 at 90 cm is a light pineda polypoid tissue measuring 0.2 x 0.2 x 0.2 cm. Submitted intact in A1. MICKEY CARLOS(ASCP) 05/27/2021 19:11 05/30/2021 13:31 [facility] Performing Lab [facility] 05/30/2021 13:31 [facility] Scanned Images 05/30/2021 13:31 [facility] Tissue ENTIRE COLON / Unknown 05/27/2021 11:23 EDT 05/27/2021 16:33 EDT Iman Moran DO PATHOLOGY ORDERABLES [facility] [address] [place] [address] documented in this encounter Visit Diagnoses Diagnosis Encounter for other general examination documented in this encounter Care Teams Gang Supervisor Relationship Specialty Start Date End Date Lolly Oliveira MD [address] [place] [address] PCP - General 11/13/08 documented as of this encounter
--- OUTSIDE RECORDS SUMMARY | 2023-10-15 11:19 | XMS_ITS | Encounter Summary ---
Author Organization [facility] Address [facility] [address] Care Team Providers Care Public Information Relations Manager Name Role Phone Lolly Oliveira MD Primary Care Provider [phone] Encounter Details Date Type Department Care Team (Late st Contact Info) Description 01/29/2023 Notes Only Cardiology at [address] [address] Merle Lin PA [facility] [place] [address] Social History Tobacco Use Types Packs/Day Years Used Date Smoking Tobacco: Never Alcohol Use Standard Drinks/Week Comments Not Currently 0 (1 standard drink = 0.6 oz pur e alcohol) [facility] Inpatient Questions Answer Date Recorded Does Anyone [...] pdf document Date of transmission: 01/29/2023 Device promotions executive: BSI Device type: PORTABLE SAWYER-D Presenting rhythm: /RVP/LVP AP 21% Right CORE CARRIER 100% Left CORE CARRIER: 100% Battery: 10.5 years [employer] Index rising in setting of increasing S3 intensity, increasing respiratory rate, increasing night heart rate, and increasing mean heart rate. MICKEY Villa 01/29/2023 9:06 AM documented in this encounter Plan of Treatment Upcoming Encounters Date Type Department Care Team (Late st Contact Info) Description 10/18/2023 10:00 AM EDT Hospital Encounter Non-[place] [address] Arrived documented as of this encounter Visit Diagnoses Not on filedocumented in this encounter Care Teams Public Information Relations Manager Relationship Specialty Start Date End Date Lolly Olvieira MD [address] [place] [address] PCP - General 07/17/13 documented as of this encounter
--- OUTSIDE RECORDS SUMMARY | 2023-10-15 11:19 | XMS_ITS | Encounter Summary ---
Author Organization [facility] Address [address] [place] [address] Care Team Providers Care Personnel Quality Assurance Auditor Name Role Phone Lolly Oliveira MD Primary Care Provider [phone] Encounter Details Date Type Department Care Team (Late st Contact Info) Description 11/13/2020 Lab Requisition [facility] Pathology & Laboratory Medicine - [address] [address] Outr Resulting Lab, Provider Social History Tobacco [...] Priority Date/Time Associated Diagnosis Comments ZZCOVID-19 TEST [facility] PCR Today 11/13/2020 7:30 EDT COVID-19 TESTING Routine 11/13/2020 7:30 EDT documented in this encounter Results * COVID-19 TEST [facility] PCR (11/13/2020 7:30 EDT) Swab ENTIRE NASOPHARYNX / Unknown 11/13/2020 7:30 EDT 11/13/2020 20:57 EDT Provider Outr Resulting Lab MICROBIOLOGY - GENERAL ORDERABLES [facility] [address] [place] [address] * COVID-19 TESTING (11/13/2020 7:30 EDT) COVID-19 rt-PCR Result Negative Negative 11/14/2020 11:46 EDT [facility] Comment: This test has not [...] performed using the med SARS-CoV-2 assay ([employer] on the Med 6800 System Performing Lab Med 6800 [facility] 11/14/2020 11:46 EDT [facility] Swab 11/13/2020 7:30 EDT 11/13/2020 20:57 EDT Provider Outr Resulting Lab MICROBIOLOGY - GENERAL ORDERABLES [facility] [address] [place] [address] documented in this encounter Visit Diagnoses Not on filedocumented in this encounter Care Teams Personnel Quality Assurance Auditor Relationship Specialty Start Date End Date Lolly Oliveira MD [address] [place] [address] PCP - General 11/13/08 documented as of this encounter
--- OUTSIDE RECORDS SUMMARY | 2023-10-15 11:19 | XMS_ITS | Encounter Summary ---
Author Organization [facility] Address [facility] [address] Care Team Providers Care Accountancy Professor Name Role Phone Lolly Oliveira MD Primary Care Provider [phone] Encounter Details Date Type Department Care Team (Late st Contact Info) Description 05/03/2023 Telephone Cardiology at [address] [phone] Lalit Mcmahon MD [facility] [place] [address] Social History Tobacco Use Types Packs/Day Years Used Date Smoking Tobacco: Never Alcohol Use Standard Drinks/Week Comments Not Currently 0 (1 standard drink = 0.6 oz pur e alcohol) [facility] Inpatient Questions Answer Date Recorded Does Anyone [...] AM EDT Hospital Encounter Non-[place] [address] Arrived documented as of this encounter Visit Diagnoses Not on filedocumented in this encounter Care Teams Accountancy Professor Relationship Specialty Start Date End Date Lolly Oliveira MD [address] [place] [address] PCP - General 07/17/13 documented as of this encounter
--- OUTSIDE RECORDS SUMMARY | 2023-10-15 11:19 | XMS_ITS | Clinical Summary ---
Author Organization [facility] Address [address] [place] [address] Care Team Providers Care Utilization Specialist Name Role Phone Lolly Oliveira MD Primary Care Provider [phone] Social History Tobacco Use Types Packs/Day Years [...] COVID-19 Vaccine ( season) 2022 Care Teams Utilization Specialist Relationship Specialty Start Date End Date Lolly Oliveira MD [address] [place], [place] [address] PCP - General 11/13/08
--- OUTSIDE RECORDS SUMMARY | 2023-10-15 11:19 | XMS_ITS | Clinical Summary ---
Author Organization [facility] [place] [address] Care Team Providers Care Towel Cabinet Repairer Name Role Phone Lolly Oliveira MD Primary Care Provider [phone] Allergies Active Allergy Reactions Criticality Noted Date [...] spacer Active fluticasone propionate (Flonase) 50 mcg/actuation [place], Suspension 1 spray by Each Nare route [...] PM EDT Hospital Encounter [place] [address] Discharge Disposition: Home 07/19/2023 11:00 AM EDT Office Visit Dermatology at [address] [phone] Clay Ramírez MD Psoriasis 07/19/2023 Travel from [...] AM EDT Hospital Encounter [place] [address] Arrived Health Maintenance Due Date [...] series) 11/07/2023 Medical Devices Implanted Type Area Inpatient Pharmacist Device Identifier Shelf Expiration Date Model / Serial / Lot Bsx: [id number]: [id number]/18/2 023 Implanted: by Lalit Mcmahon MD (Quantity not on file) Defibrillator Chest Wall [employer] [id number] / [id number] / Bsx: [id number]: 262269-7/18/2 023 Implanted: by Lalit Mcmahon MD (Quantity not on file) Lead Heart [employer] 4674 / [id number] / Bsx: [id number]: [id number] Implanted: by Lalit Mcmahon MD (Quantity not on file) Lead Heart [employer] 7841 / [id number] / Bsx: 0672: 400238-8/18/2 023 Implanted: by Lalit Mcmahon MD (Quantity not on file) Lead Heart [employer] 0672 / [id number] / Procedures Procedure Name Priority Date/Time Associated [...] Status decision made by: Patient Care Teams Towel Cabinet Repairer Relationship Specialty Start Date End Date Lolly Oliveira MD [address] [place] [address] PCP - General 07/17/13
--- OUTSIDE RECORDS SUMMARY | 2023-10-15 11:19 | XMS_ITS | Encounter Summary ---
Author Organization [facility] [place] [address] Care Team Providers Care Stocking And Box Shop Supervisor Name Role Phone Lolly Oliveira MD Primary Care Provider [phone] Encounter Details Date Type Department Care Team (Late st Contact Info) Description 03/15/2023 Telephone Cardiology at [address] [phone] Saranya Ma Social History Tobacco Use Types Packs/Day Years Used Date Smoking Tobacco: Never Alcohol Use Standard Drinks/Week Comments Not Currently 0 (1 standard drink = 0.6 oz pur e alcohol) [facility] Inpatient Questions Answer Date Recorded Does Anyone [...] her to have an echo done at [facility] prior to her appt withvtm there on 05/12/23. Message sent to Dr. Mcmahon asking him to put order in if he would like her to have this done. Saranya Ma Sr. Clinical Procedure [place]/Pipe Caulker documented in this encounter Plan of Treatment Upcoming Encounters Date Type Department Care Team (Late st Contact Info) Description 10/18/2023 10:00 AM EDT Hospital Encounter Non-[place] [address] Arrived documented as of this encounter Visit Diagnoses Not on filedocumented in this encounter Care Teams Stocking And Box Shop Supervisor Relationship Specialty Start Date End Date Lolly Oliveira MD [address] [place] [address] PCP - General 07/17/13 documented as of this encounter
--- OUTSIDE RECORDS SUMMARY | 2023-10-15 11:19 | XMS_ITS | Encounter Summary ---
Author Organization [facility] Address [address] [place] [address] Care Team Providers Care Die Repairer Forging Name Role Phone Lolly Oliveira MD Primary Care Provider [phone] Encounter Details Date Type Department Care Team (Late st Contact Info) Description 05/02/2004 Results Only [facility] [address] [place] [address] Lolly Oliveira MD [address] [place], [place] [phone] Social History Tobacco Use Types Packs/Day Years [...] 68. [facility] Report Status Final [id number] [facility] 05/02/2004 9:32 EST 05/10/2004 9:32 EST Lolly Oliveira MD MICROBIOLOGY - GENER AL ORDERABLES [facility] [address] [place] [address] * CYTOPATHOLOGY (05/02/2004 0:00 EST) Pathology Report: CYTOPATHOLOGY REPORT Reports generated via electronic interface contain original data; however they are lacking the format of the original report. Caution should be taken when reading/interpreti ng unformatted reports. Name: ? JING ALVARENGA ? Accession #: ? [id number] : ? 1950 (Age: 53) ??F ?Collect [...] Oliveira MD PATHOLOGY ORDERABLES Performing Organization Address City/State/[facility] Co de Phone Number [facility] [address] [place] [address] documented in this encounter Visit Diagnoses Not on filedocumented in this encounter Care Teams Die Repairer Forging Relationship Specialty Start Date End Date Lolly Oliveira MD [address] [place] [address] PCP - General 11/13/08 documented as of this encounter
--- OUTSIDE RECORDS SUMMARY | 2023-10-15 11:19 | XMS_ITS | Encounter Summary ---
Author Organization [facility] Address [address] [place] [address] Care Team Providers Care Nuclear Medical Technologist Name Role Phone Lolly Oliveira MD Primary Care Provider [phone] Encounter Details Date Type Department Care Team (Late st Contact Info) Description 04/01/2005 Results Only [facility] [address] [place] [address] Blair Dukes MD [address] [place] [phone] Social History Tobacco Use Types Packs/Day Years [...] ? JING ALVARENGA ? Accession #: ? [id number] ? : ? 1950 (Age: 54) ??F ? Collect Date: ? 04/01/2005 ? Location: ? [facility] ? Receive Date: ? 04/02/2005 ? Provider: BLAIR DUKES MD Copy to: LOLLY OILVEIRA MD ? Final Pathologic Diagnosis: A. ?Terminal [...] cm tissue, submitted intact as (B). ??(Dr. Lechuga)/[facility] End of Report [facility] 04/01/2005 04/02/2005 15: 24 EST Blair Dukes MD PATHOLOGY ORDERABLES [facility] [address] [place] [address] documented in this encounter Visit Diagnoses Not on filedocumented in this encounter Care Teams Nuclear Medical Technologist Relationship Specialty Start Date End Date Lolly Oliveira MD [address] [place] [address] PCP - General 11/13/08 documented as of this encounter
--- OUTSIDE RECORDS SUMMARY | 2023-10-15 11:19 | XMS_ITS | Encounter Summary ---
Author Organization Formerly [facility] [place] [address] Care Team Providers Care Nephrology Nurse Name Role Phone Lolly Oliveira MD Primary Care Provider Reason for Visit * Reason Comments Follow-up 8 weeks UVB treatmen t twice weekly Encounter Details Date Type Department Care Team (Late st Contact Info) Description 07/19/2023 11:00 AM EDT Office Visit Dermatology at [address] [phone] Clay Ramírez MD [address], ERIKA A DERMATOLOGY [place], [place] [id number] Psoriasis Social History Tobacco Use Types Packs/Day [...] AM EDT Hospital Encounter Non[place] [address] Arrived documented as of this encounter Visit Diagnoses Diagnosis Psoriasis Other psoriasis documented in this encounter Care Teams Nephrology Nurse Relationship Specialty Start Date End Date Lolly Oliveira MD [address] [place] [address] PCP - General 07/17/13 documented as of this encounter
--- OUTSIDE RECORDS SUMMARY | 2023-10-15 11:19 | XMS_ITS | Encounter Summary ---
Author Organization [facility] [place] [address] Care Team Providers Care Shipfitter Helper Name Role Phone Lolly Oliveira MD Primary Care Provider [phone] Reason for Visit * Reason Onset Date Comments Other 07/24/2022 Implanted Cardia c Device Teaching/Education Encounter Details Date Type Department Care Team (Late st Contact Info) Description 07/24/2022 Notes Only Cardiology at [address] [phone] Letha Arroyo Other (Implanted Cardiac Device Teaching/Education) Social History Tobacco Use Types Packs/Day Years Used Date Smoking Tobacco: Never Alcohol Use Standard Drinks/Week Comments Not Currently 0 (1 standard drink = 0.6 oz pur e alcohol) [facility] Inpatient Questions Answer Date Recorded Does Anyone [...] to call the Cardiac Device Clinic at [phone] with any questions. Plan: Post op check: [...] AM EDT Hospital Encounter Non-[place] [address] Arrived documented as of this encounter Visit Diagnoses Not on filedocumented in this encounter Care Teams Shipfitter Helper Relationship Specialty Start Date End Date Lolly Oliveira MD [address] [place] [address] PCP - General 07/17/13 documented as of this encounter
--- OUTSIDE RECORDS SUMMARY | 2023-10-15 11:19 | XMS_ITS | Encounter Summary ---
Author Organization [facility] Address [address] [place] [address] Care Team Providers Care Radar Technician Name Role Phone Lolly Oliveira MD Primary Care Provider [phone] Encounter Details Date Type Department Care Team (Late st Contact Info) Description 03/06/2003 Results Only [facility] conversion [address] [place] [address] Lolly Oliveira MD [address] [place], [place] [phone] Social History Tobacco Use Types Packs/Day Years [...] Oliveira MD PATHOLOGY ORDERABLES Performing Organization Address City/State/[facility] Co de Phone Number [facility] [address] [place] [address] documented in this encounter Visit Diagnoses Not on filedocumented in this encounter Care Teams Radar Technician Relationship Specialty Start Date End Date Lolly Oliveira MD [address] [place] [address] PCP - General 11/13/08 documented as of this encounter
--- OUTSIDE RECORDS SUMMARY | 2023-10-15 11:19 | XMS_ITS | Encounter Summary ---
Author Organization [facility] [place] [address] Care Team Providers Care Coding Specialist Name Role Phone Lolly Oliveira MD Primary Care Provider [phone] Encounter Details Date Type Department Care Team (Late st Contact Info) Description 11/16/2022 Telephone Cardiology at [address] [phone] Luna Rousseau, RN Social History Tobacco Use Types Packs/Day Years Used Date Smoking Tobacco: Never Alcohol Use Standard Drinks/Week Comments Not Currently 0 (1 standard drink = 0.6 oz pur e alcohol) [facility] Inpatient Questions Answer Date Recorded Does Anyone [...] BP today was 118/57 at [facility] at [facility]. Pt is going twice a week to [...] AM EDT Hospital Encounter [place] [address] Arrived documented as of this encounter Visit Diagnoses Not on filedocumented in this encounter Care Teams Coding Specialist Relationship Specialty Start Date End Date Lolly Oliveira MD [address] [place] [address] PCP - General 07/17/13 documented as of this encounter
--- OUTSIDE RECORDS SUMMARY | 2023-10-15 11:19 | XMS_ITS | Encounter Summary ---
Author Organization [place] [address] Care Team Providers Care Public Safety Dispatcher Name Role Phone Lolly Oliveira MD Primary Care Provider [phone] Encounter Details Date Type Department Care Team [...] AM EDT Hospital Encounter [place] [address] Arrived documented as of this encounter Visit Diagnoses Not on filedocumented in this encounter Care Teams Public Safety Dispatcher Relationship Specialty Start Date End Date Lolly Oliveira MD [address] [place] [address] PCP - General 07/17/13 documented as of this encounter
--- OUTSIDE RECORDS SUMMARY | 2023-10-15 11:19 | XMS_ITS | Encounter Summary ---
Author Organization [facility] [place] [address] Care Team Providers Care Licensed Architect Name Role Phone Lolly Oliveira MD Primary Care Provider [phone] Reason for Visit * Reason Onset Date Comments Post Procedure Call 07/30/2022 Encounter Details Date Type Department Care Team (Late st Contact Info) Description 07/30/2022 Notes Only Cardiology at [address] [phone] Rosenda Sutton, RN Post Procedure Call Social History Tobacco Use Types Packs/Day Years Used Date Smoking Tobacco: Never Alcohol Use Standard Drinks/Week Comments Not Currently 0 (1 standard drink = 0.6 oz pur e alcohol) [facility] Inpatient Questions Answer Date Recorded Does [...] 07/30/2022 9:59 AM EDTSummary: Post Procedure Call: ADOBE BLOCK MAKER implant EP RN Post-Procedure Note: Date of Follow Up Call: 07/30/2022 Spoke With: Patient Procedure Type (choose all that apply): ICD Performing MIRLANDE Mcmahon Date of Procedure: 07/23/2022 Date of Discharge: 07/24/2022 Follow Up EP Visit Scheduled?: No No Follow Up Visit Reason: Follow up outside Outside Location: [facility] Date of Non EP Visit: 08/12/2022 Intra [...] Note: Follow-up Recommendations for Providers: - s/p ADOBE BLOCK MAKER-D implant - post implant QRS 130 ms - reviewed post-implant instructions - no medication changes - Follow up in device clinic for wound/device check in ~10 days??([facility]) Wound Care: -Wound will heal in [...] AM EDT Hospital Encounter Non[place] [address] Arrived documented as of this encounter Visit Diagnoses Not on filedocumented in this encounter Care Teams Licensed Architect Relationship Specialty Start Date End Date Lolly Oliveira MD [address] [place] [address] PCP - General 07/17/13 documented as of this encounter
--- OUTSIDE RECORDS SUMMARY | 2023-10-15 11:19 | XMS_ITS | Encounter Summary ---
Author Organization [facility] [place] [address] Care Team Providers Care Metallurgy Teacher Name Role Phone Lolly Oliveira MD Primary Care Provider [phone] Encounter Details Date Type Department Care Team (Latest Contact Info) Description 07/20/2023 10:00 AM EDT - 07/20/2023 11:59 PM EDT Hospital Encounter Non-[place] [phone] Discharge Disposition: Home Social History Tobacco Use [...] with spacer fluticasone propionate (Flonase) 50 mcg/actuation [place], Suspension 1 spray by Each Nare route daily as needed. documented as of this encounter Plan of Treatment Upcoming Encounters Date Type Department Care Team (Late st Contact Info) Description 10/18/2023 10:00 AM EDT Hospital Encounter Non-[place]vasive [place] [address] Arrived documented as of this encounter Procedures [...] on filedocumented in this encounter Care Teams Metallurgy Teacher Relationship Specialty Start Date End Date Lolly Oliveira MD [address] [place] [address] PCP - General 5/12/14 documented as of this encounter
--- OUTSIDE RECORDS SUMMARY | 2023-10-15 11:19 | XMS_ITS | Encounter Summary ---
Author Organization [facility] [place] [address] Care Team Providers Care Industrial Maintenance Electrician Name Role Phone Lolly Oliveira MD Primary Care Provider [phone] Encounter Details Date Type Department Care Team (Latest Contact Info) Description 10/23/2022 10:00 AM EDT - 10/23/2022 11:59 PM EDT Hospital Encounter Non-Invasive [place] [phone] Discharge Disposition: Home Social History Tobacco Use [...] with spacer fluticasone propionate (Flonase) 50 mcg/actuation [place], Suspension 1 spray by Each Nare route [...] AM EDT Hospital Encounter Non-Invasive [place] [address] Arrived documented as of this [...] filedocumented in this encounter Care Teams Industrial Maintenance Electrician Relationship Specialty Start Date End Date Lolly Oliveira MD [address] [place] [address] PCP - General 07/17/13 documented as of this encounter
--- OUTSIDE RECORDS SUMMARY | 2023-10-15 11:19 | XMS_ITS | Encounter Summary ---
Author Organization [facility] Address [address] [place] [address] Care Team Providers Care Protective Signal Repairer Helper Name Role Phone Lolly Oliveira MD Primary Care Provider [phone] Encounter Details Date Type Department Care Team (Late st Contact Info) Description 06/16/2012 Results Only [facility] Laboratory Services - [facility] ([facility]) [address], [place] [phone] Lolly Oliveira MD [address] [place], [place] [phone] Social History Tobacco Use Types Packs/Day Years [...] ? JING ALVARENGA ? Accession #: ? [id number] : ? 1950 (Age: 61) ??F ?Collect [...] MD PATHOLOGY ORDERABLES [facility] [address] [place] [address] documented in this encounter Visit Diagnoses Not on filedocumented in this encounter Care Teams Protective Signal Repairer Helper Relationship Specialty Start Date End Date Lolly Oliveira MD [address] [place] [address] PCP - General 11/13/08 documented as of this encounter
--- OUTSIDE RECORDS SUMMARY | 2023-10-15 11:19 | XMS_ITS | Encounter Summary ---
Author Organization [facility] [place] [address] Care Team Providers Care Pavilion Cutter Name Role Phone Lolly Oliveira MD Primary Care Provider Encounter Details Date Type Department Care Team (Late st Contact Info) Description 05/18/2023 Refill Dermatology at [address] [address] Nora Meredith LPN Social History [...] patient. She voiced understanding. Order sent to [facility] drug. documented in this encounter Plan of Treatment Upcoming Encounters Date Type Department Care Team (Late st Contact Info) Description 10/18/2023 10:00 AM EDT Hospital Encounter Non-[place] [address] Arrived documented as of this encounter Visit Diagnoses Not on filedocumented in this encounter Care Teams Pavilion Cutter Relationship Specialty Start Date End Date Lolly Oliveira MD [address] [place] [address] PCP - General 07/17/13 documented as of this encounter
--- OUTSIDE RECORDS SUMMARY | 2023-10-15 11:19 | XMS_ITS | Encounter Summary ---
Author Organization [facility] Address [address] [place] [address] Care Team Providers Care Manager Of Learning Name Role Phone Lolly Oliveira MD Primary Care Provider [phone] Encounter Details Date Type Department Care Team (Late st Contact Info) Description 04/17/2005 Results Only [facility] conversion [address] [place] [address] Lolly Oliveira MD [address] [place], [place] [phone] Social History Tobacco Use Types Packs/Day Years [...] ? JING ALVARENGA ? Accession #: ? [id number] : ? 1950 (Age: 54) ??F ?Collect Date: ? 04/17/2005 Location: ? [facility] ? Receive Date: ? 04/21/2005 Provider: ?LOLLY OLIVEIRA MD Copy to: ? Specimen/Source: ?ThinPrep Pap Test, Cervix/Endocervix, processed on Parad[employer] SpinePrep Imaging System, with manual evaluation Last Menstrual [...] Oliveira MD PATHOLOGY ORDERABLES [facility] [address] [place] [address] documented in this encounter Visit Diagnoses Not on filedocumented in this encounter Care Teams Manager Of Learning Relationship Specialty Start Date End Date Lolly Oliveira MD [address] [place] [address] PCP - General 11/13/08 documented as of this encounter
--- OUTSIDE RECORDS SUMMARY | 2023-10-15 11:19 | XMS_ITS | Encounter Summary ---
Author Organization [facility] Address [address] [place] [address] Care Team Providers Care Data Analyst Report Writer Name Role Phone Unavailable Primary Care Provider Unavailabl e Encounter Details Date Type Department Care Team (Late st Contact Info) Description 11/07/2008 Orders Only [facility] Laboratory Services - [facility] ([facility]) [address] [place] [address] Kenneth Parker MD [address] [place] [address] Social History Tobacco Use Types Packs/Day Years [...] ? LYLE, JING ? Accession #: ? [id number] ? : ? 1950 (Age: 58) ??F [...] Parker MD PATHOLOGY ORDERABLES Performing Organization Address City/State/[facility] Co de Phone Number [facility] [address] [place] [address] documented in this encounter Visit Diagnoses Not on filedocumented in this encounter
--- OUTSIDE RECORDS SUMMARY | 2023-10-15 11:19 | XMS_ITS | Encounter Summary ---
Author Organization [facility] [place] [address] Care Team Providers Care Tile Layer Helper Name Role Phone Lolly Oliveira MD Primary Care Provider [phone] Encounter Details Date Type Department Care Team (Latest Contact Info) Description 04/21/2023 10:00 AM EST - 04/21/2023 11:59 PM EST Hospital Encounter [place] [phone] Discharge Disposition: Home Social History Tobacco Use [...] spacer fluticasone propionate (Flonase) 50 mcg/actuation [place], Suspension 1 spray by Each Nare route [...] AM EDT Hospital Encounter Non-[place] [address] Arrived documented as of this [...] on filedocumented in this encounter Care Teams Tile Layer Helper Relationship Specialty Start Date End Date Lolly Oliveira MD [address] [place] [address] PCP - General 07/17/13 documented as of this encounter
--- OUTSIDE RECORDS SUMMARY | 2023-10-15 11:19 | XMS_ITS | Referral Summary ---
Author Organization [facility] Address [address] [place] [address] Care Team Providers Care Motor Vehicle Lecturer Name Role Phone Lolly Oliveira MD Primary Care Provider [phone] Social History Tobacco Use Types Packs/Day Years Used Date Smoking Tobacco: Never Assessed Sex and Gender Information Value Date Recorded Sex Assigned at Not on file Gender Identity Not on file Sexual Orientation Not on file Plan of Treatment Not on file Care Teams Motor Vehicle Lecturer Relationship Specialty Start Date End Date Lolly Oliveira MD [address] [place] [address] PCP - General 11/13/08
--- OUTSIDE RECORDS SUMMARY | 2023-10-15 11:20 | XMS_ITS | Encounter Summary ---
[place] [address] Care Team Providers Care Thread Singer Name Role Phone Lolly Oliveira MD Primary Care Provider [phone] Encounter Details Date Type Department Care Team [...] AM EDT Hospital Encounter Non[place] [phone] Arrived documented as of this encounter Visit Diagnoses Not on filedocumented in this encounter Care Teams Thread Singer Relationship Specialty Start Date End Date Lolly Oliveira MD [address] [place], [place] [address] PCP - General 07/17/13 documented as of this encounter
--- OUTSIDE RECORDS SUMMARY | 2023-10-15 11:20 | XMS_ITS | Encounter Summary ---
[place] [address] Care Team Providers Care Instant Potato Processor Name Role Phone Lolly Oliveira MD Primary Care Provider [phone] Encounter Details Date Type Department Care Team (Late st Contact Info) Description 07/17/2013 [place] [phone] Lolly Oliveira MD [address] [place], [place] [id number] Social History Tobacco Use Types Packs/Day Years [...] AM EDT Hospital Encounter Non-[place]vasive [place] [address] Arrived documented as of this encounter Procedures Procedure Name Priority Date/Time Associated Diagnosis Comments REQUEST FOR 2ND READ MAMMO Routine 07/17/2013 8:45 AM EDT documented in this encounter Results * Request for 2nd read Mammo (07/17/2013 8:45 AM EDT) Anatomical Region Laterality Modality Other 07/17/2013 8:45 AM EDT Narrative 07/17/2013 3:57 PM EDT INTERPRETATION OF OUTSIDE MAMMOGRAMS (PERFORMED ON 07/06/13 AND 07/14/13) FROM [facility] DATED 07/17/13: ?? DIAGNOSTIC IMAGING [...] OUTSIDE MAMMOGRAMS (PERFORMED ON 07/06/13 AND 07/14/13) [facility]17[facility]13: DIAGNOSTIC IMAGING SUMMARY: [...] on filedocumented in this encounter Care Teams Instant Potato Processor Relationship Specialty Start Date End Date Lolly Oliveira MD [address] [place] [address] PCP - General 07/17/13 documented as of this encounter
--- OUTSIDE RECORDS SUMMARY | 2023-10-15 11:20 | XMS_ITS | Encounter Summary ---
Author Organization [facility] Address [facility] [place] [address] Care Team Providers Care Nursery Nurse Name Role Phone Lolly Oliveira MD Primary Care Provider [phone] Reason for Visit * Auth/Cert (Routine) Specialty Diagnoses / Procedures Referred By Contac t Referred To Contact Diagnoses Left bundle-branch block, unspecified Other cardiomyopathies Left bundle branch block [I44.7]Nonischemic cardiomyopathy [I42.8] Procedures PRG CATH PLMT LEFT HEART CATH & ARTS W/INJ & ANGIO IMG S&I ELECTROPHYSIOLOGY PROCEDURE Lalit Mcmahon MD [facility] [place] [address] [facility] Referral ID Status Reason Start Date Expiration Date Visits Re quested Visits Authorized [id number] 1 1 Encounter Details Date Type Department Care Team (Late st Contact Info) Description 07/23/2022 1:08 PM EDT Anesthesia Event Electrophysiology [place] [address] Monae Gonzalez MD [facility] [place] [address] Maria Elena Snyder CRNA [facility] [place] [address] Anesthesia Record Procedure Summary Procedure Name Responsible [...] 1307; median cubital vein (antecubital fossa), right; ayqx-tzk-rsgkqq catheter system; Anatomical Landmarks; 20 gauge; 07/24/22; [...] 1343; metacarpal vein (top of hand), left; srag-xoz-gechfl catheter system; Anatomical Landmarks; US Not Used; [...] Procedure Summary Date: 07/23/22 Room / Location: [facility] A-LAB ROOM 3 / [facility] EP LABS Anesthesia Start: 1308 Anesthesia Stop: 1633 Procedure: ELECTROPHYSIOLOGY PROCEDURE (Left) Diagnosis: Left bundle branch block Nonischemic cardiomyopathy (Left bundle branch block [I44.7]Nonischemic cardiomyopathy [I42.8]) Providers: Lalit Mcmahon MD Responsible Provider: Monae Gonzalez MD Anesthesia Type: general ASA Status: 4 All Anesthesia Providers: Anesthesiologist: Monae Gonzalez MD; Dominique Sen MD METALWORKER: Maria Elena Snyder CRNA Vitals Value Taken Time BP 131/46 07/23/22 1700 Temp 36.7 ??C (98.1 ??F) 07/23/22 1627 Pulse 67 07/23/22 1703 Resp 14 07/23/22 1703 SpO2 98 % 07/23/22 1703 Pain Level Vitals shown include unvalidated device data. Patient Location: PACU/[facility] Level of Consciousness: Conscious but Sleepy Pain [...] and Nonischemic CM (EF 15-20%)who presents for DATA COMMUNICATIONS ENGINEER-D. No prior anesthetic records. Pt states that [...] daughter/son and patient who. Plan discussed with METALWORKER. Anesthesia Screening documented in this encounter Plan of Treatment Upcoming Encounters Date Type Department Care Team (Late st Contact Info) Description 10/18/2023 10:00 AM EDT Hospital Encounter Non[place] [address] Arrived documented as of this [...] mg documented in this encounter Care Teams Nursery Nurse Relationship Specialty Start Date End Date Lolly Oliveira MD [address] [place] [address] PCP - General 07/17/13 documented as of this encounter
--- OUTSIDE RECORDS SUMMARY | 2023-10-15 11:20 | XMS_ITS | Encounter Summary ---
[place] [address] Care Team Providers Care Military Administrative Technician Name Role Phone Lolly Oliveira MD Primary Care Provider [phone] Encounter Details Date Type Department Care Team [...] AM EDT Hospital Encounter Non[place] [address] Arrived documented as of this encounter Visit Diagnoses Not on filedocumented in this encounter Care Teams Military Administrative Technician Relationship Specialty Start Date End Date Lolly Oliveira MD [address] [place], [place] [address] PCP - General 07/17/13 documented as of this encounter
--- OUTSIDE RECORDS SUMMARY | 2023-10-15 11:20 | XMS_ITS | Encounter Summary ---
Author Organization [facility] Address [place] [address] Care Team Providers Care Traffic Manager Name Role Phone Lolly Oliveira MD Primary Care Provider [phone] Encounter Details Date Type Department Care Team (Late st Contact Info) Description 07/16/2022 Telephone Cardiology at [address] [phone] Lalit Mcmahon MD [facility] [place] [address] Social History Tobacco Use Types Packs/Day Years [...] her nonischemic cardiomyopathy. She is scheduled for DRAW PRESS OPERATOR-D implantation next week and looks forward to the procedure. We will see each other next week. Lalit Mcmahon MD [facility] Cardiac Electrophysiology 07/16/2022 8:52 AM documented in this encounter Plan of Treatment Upcoming Encounters Date Type Department Care Team (Late st Contact Info) Description 10/18/2023 10:00 AM EDT Hospital Encounter [place] [address] Arrived documented as of this encounter Visit Diagnoses Not on filedocumented in this encounter Care Teams Traffic Manager Relationship Specialty Start Date End Date Lolly Oliveira MD [address] [place] [address] PCP - General 07/17/13 documented as of this encounter
--- OUTSIDE RECORDS SUMMARY | 2023-10-15 11:20 | XMS_ITS | Encounter Summary ---
Author Organization [facility] Address [facility] [place] [address] Care Team Providers Care Powder Compounder Name Role Phone Lolly Oliveira MD Primary Care Provider [phone] Reason for Visit * Auth/Cert (Routine) Specialty Diagnoses / Procedures Referred By Contac t Referred To Contact Diagnoses Left bundle-branch block, unspecified Other cardiomyopathies Left bundle branch block [I44.7]Nonischemic cardiomyopathy [I42.8] Procedures PRG CATH PLMT LEFT HEART CATH & ARTS W/INJ & ANGIO IMG S&I ELECTROPHYSIOLOGY PROCEDURE Lalit Mcmahon MD [facility] [place] [address] [facility] Referral ID Status Reason Start Date Expiration Date Visits Re quested Visits Authorized [id number] 1 1 Encounter Details Date Type Department Care Team (Latest Contact Info) Description 07/23/2022 11:39 AM EDT - 07/24/2022 10:23 AM EDT [place] [id number] Lalit Mcmahon MD [facility] [place] [address] Left bundle branch block; Nonischemic cardiomyopathy; Cardiac resynchronization therapy defibrillator (ASPARAGUS BUNCHER-D) in place Discharge Disposition: Home Social History [...] Luna Mott Patient Age: 71 y.o. Language: Hebrew Race: White Ethnicity: Not nor Admit date: 07/23/2022 Discharge date and time: 07/24/22 Attending Physician: Lalit Mcmahon MD Discharge Physician: Lalit Mcmahon MD Follow-up Recommendations for Providers: - s/p ASPARAGUS BUNCHER-D implant - post implant QRS 130 ms - reviewed post-implant instructions - no medication changes - Follow up in device clinic for wound/device check in ~10 days ([facility]) Inpatient Provider Contact Information: Cardiac Electrophysiology - Discharge Diagnoses (Hospital Problems) and Secondary Diagnoses (Chronic Problems): Active Hospital Problems Diagnosis ??? HFrEF (heart failure with reduced ejection fraction) Resolved Hospital Problems No resolved problems to display. Active Non-Hospital Problems Diagnosis ??? Dermatofibroma ??? Nevus ??? Solar lentigo Operations/Major Procedures: 07/23/22: [facility] ASPARAGUS BUNCHER-D implant History of Presentation: 71 y.o. female with a history of HFrEF, LBBB, QRS >150, NYHA II who is POD#1 of ASPARAGUS BUNCHER-D implant ([employer]). Hospital Course: Elective admission for ASPARAGUS BUNCHER-D implant Admitted post-implant for pain management, telemetry [...] (heart failure with reduced ejection fraction) [I50.20] ASPARAGUS BUNCHER-D implant Admission Condition: good Indication for Admission: [...] g Refills: 3 fluticasone propionate 50 mcg/actuation [place], Suspension Commonly known as: Flonase 1 spray [...] incision. Make sure to use a cloth bleaching range operator chief (such as a towel) in between the [...] F. The office scheduling phone number is [phone]. ARM MOVEMENT RESTRICTIONS POST-IMPLANT - Do not [...] please call the Cardiac ElectrophysiologyTriage Nurse at [phone], option 3. General Instructions None Discharge References/Attachments [...] incision. Make sure to use a cloth bleaching range operator chief (such as a towel) in between the [...] F. The office scheduling phone number is [phone]. ARM MOVEMENT RESTRICTIONS POST-IMPLANT - Do not [...] please call the Cardiac ElectrophysiologyTriage Nurse at [phone], option 3. documented in this encounter Medications [...] with spacer fluticasone propionate (Flonase) 50 mcg/actuation [place], Suspension 1 spray by Each Nare route [...] Cardiac Electrophysiology Post-Implant Device Interrogation Luna Mott [id number] 07/24/2022 History: Luna Mott is a 71 y.o. female with a history of HFrEF, LBBB, QRS >150, NYHA II who is POD#1 of ASPARAGUS BUNCHER-D implant ([employer]). Overall feels well this morning. Ready [...] WOB Neuro- A&Ox3 Device Interrogation: Data ?? Tar Heater Model # Serial # Generator [employer] [id number] Atrial Lead [employer] [id number] RV Lead [employer] 0672 [id number] LV Lead [employer] 4674 037602 ?? Diagnostics Pacing Mode: DDD 60-130 Underlying Rhythm: [place] Atrial Episodes: None Ventricular Episodes: None FINAL PROGRAMMING: Pacing: Mode Lower rate (ppm) Upper rate (ppm) ?? DDD 60 130 VF: Rate (bpm) #Antitachycardia pacing First shock energy (J) ?? 200 Quick convert 41 VT: 170 Monitor only Monitor only ? Battery and Leads Impedances (ohms) Sensing (mV) Thresholds HV RA RV LV RA RV LV RA RV LV 73 [phone] (LVa) 7.7 13.1 >25 0.4V @ 0.4 ms 0.4V @ 0.4 ms 0.5 V @ 1.0 ms POD#1 CXR: All leads in nominal positioning Impression: 71 y.o. female who is s/p ASPARAGUS BUNCHER-D implant for LBBB, NYHA II, HFrEF. - Appropriate device function post-implant - CXR negative for post-implant complications - Changed sensed AV delay from 130 to 110 Plan: 1. Reviewed standard post-implant discharge instructions (see patient instructions) including arm restrictions, wound care, bathing, and driving 2. No medication changes. 3. Follow up in device clinic for wound/device check in ~10 days ([facility]) Fadi Nunez MD 07/24/2022 Pager: [phone] I met with the patient today and [...] agreement. ? Dr. Lalit Mcmahon, electrophysiology attending ([id number]) * Zaria Wright RN - 07/23/2022 8:28 [...] HF, QRS > 150 ms presents for ASPARAGUS BUNCHER-D placement. ROS: Denies recent fevers or chills [...] 0.9) flush 5 mL 5 mL Intravenous [id number] ramos MD ??? sodium chloride 0.9 % [...] HF, QRS > 150 ms presents for ASPARAGUS BUNCHER-D placement. Backup would be LBBAP lead. Antibiotics: cefazolin Rationales for, intended benefits and potential risk of planned procedures reviewed. The patient indicated understanding and agreement with the plan. Informed consent signed. Procedure checklist completed. Fadi Nunez MD Cardiac Electrophysiology Fellow [facility] Pager [phone] 07/23/2022 I met with the patient today [...] agreement. ? Dr. Lalit Mcmahon, electrophysiology attending ([id number]) documented in this encounter Miscellaneous Notes * Brief Op Note - Lalit Mcmahon MD - 07/23/2022 4:04 PM EDT Brief Operative Note Patient Name: Luna Mott : [id number] MR#: [id number] Case Date: 07/23/2022 Surgeon: Surgeon(s) and Role: [...] AM EDT Hospital Encounter [place] [address] Arrived Scheduled Orders Name Type Priority Associated Diagnoses Orde r Schedule EKG 12 Lead ECG Routine Cardiac resynchronization therapy defibrillator (ASPARAGUS BUNCHER-D) in place One Time for 1 Occurrences [...] (Bezet) 522 ms MUSE SYSTEM Calculated R Landers 78 degrees MUSE SYSTEM Calculated T Landers -71 degrees MUSE SYSTEM INTERPRETATION AV dual-paced [...] have questions please contact the health home health aide caregiver that requested your imaging first. ? Narrative [...] who have questions please contactthe health home health aide caregiver that requested your imaging first. Lalit Mcmahon MD IMG DX ORDERABLES * ELECTROPHYSIOLOGY PROCEDURE (07/23/2022 1:11 PM EDT) Anatomical Region Laterality Modality Other Narrative 07/23/2022 4:24 PM EDT Table formatting from the original result was not included. BIVENTRICULAR ICD IMPLANTATION Private Duty Nurse: Lalit Mcmahon MD Fellow: Fadi Nunez MD [...] lateral branch of the CS in the SAUDI ARABIAN view. This branch was cannulated with a [...] the entire procedure. LEAD AND GENERATOR DATA: Tar Heater Model # Serial # Generator [employer] [id number] Atrial Lead [employer] [id number] [id number] RV Lead [employer] 0672 [id number] LV Lead [employer] [id number] [id number] PACE/SENSE DATA: Sensed wave (mV) Threshold (V) [...] (cGycm2) 300 CONCLUSIONS: Successful implantation of a [employer] biventricular ICD for primary prevention and treatment of symptoms related to congestive heart failure. Follow up in EP clinic in 1-2 months. Procedures performed: new ICD system ( cpt 07360-I6); implant LV lead at time of ICD insertion (cpt 14987) I have read, edited and approve of this report: Lalit Mcmahon MD S Cardiac Electrophysiology 07/23/2022 4:22 PM Procedure Note Lalit Mcmahon MD - 07/23/2022 BIVENTRICULAR ICD IMPLANTATION Private Duty Nurse: Lalit Mcmahon MD Fellow: Fadi Nunez MD [...] appropriate lateralbranch of the CS in the SAUD[place] ARABIAN view. This branch was cannulated with a [...] in the entireprocedure. LEAD AND GENERATOR DATA: Tar Heater Model # Serial # Generator [employer] [id number] Atrial Lead [employer] 7841 [id number] RV Lead [employer] 0672 736476 LV Lead [employer] 4674 [id number] PACE/SENSE DATA: Sensed wave (mV) Threshold (V) [...] (cGycm2) 300 CONCLUSIONS: Successful implantation of a [employer] biventricular ICD forprimary prevention and treatment of symptoms related to congestive heartfailure. Follow up in EP clinic in 1-2 months. Procedures performed: new ICD system ( cpt 47437-L0); implant LV lead attime of ICD insertion (cpt 28790) I have read, edited and approve of this report: Lalit Mcmahon MD [facility] Cardiac Electrophysiology 07/23/2022 4:22 PM Lalit Mcmahon MD EP PROCEDURE ORDERAB LES * POCT Glucose (07/23/2022 12:54 PM EDT) Glucose, POC 83 65 - 199 mg/dL [facility] Comment: Supplemental ranges: <140 mg/dL before meals <180 mg/dL all other times of the day Blood 07/23/2022 12:5 4 PM EDT 07/23/2022 12:54 PM EDT Lalit Mcmahon MD POINT OF CARE TEST O RDERABLES Performing Organization Address [facility] Co de Phone Number [facility] [place] [address] * EKG 12 Lead (07/23/2022 12:33 PM EDT) Ventricular rate 72 BPM MUSE SYSTEM Atrial Rate 72 BPM MUSE SYSTEM P-R Interval 158 ms MUSE SYSTEM QRS Duration 176 ms MUSE SYSTEM Q-T Interval 458 ms MUSE SYSTEM QTC Calculated (Bezet) 501 ms MUSE SYSTEM Calculated P Landers 34 degrees MUSE SYSTEM Calculated R Landers 12 degrees MUSE SYSTEM Calculated T Landers -173 degrees MUSE SYSTEM INTERPRETATION Normal sinus rhythm Left bundle branch block Abnormal ECG No previous ECGs available Confirmed by MD Salome, Lalit ([id number]) on 07/23/2022 1:19:03 PM MUSE SYSTEM 07/23/2022 12:3 3 PM EDT 07/23/2022 1:19 PM EDT Lalit Mcmahon MD ECG ORDERABLES Performing Organization Address [facility] de Phone Number MUSE SYSTEM * Differential, Automated (07/23/2022 11:55 AM EDT) Neutrophil % 62.6 % [facility] Neutrophil Absolute 4.14 1.70 - 6.10 x10(3)/[facility] Lymph % 27.0 % [facility] Lymphocytes Abs 1.8 0.9 - 3.2 x10(3)/[facility] Monocyte % 7.3 % [facility] Monocyte Abs 0.5 0.3 - 0.9 x10(3)/[facility] Eos % 2.3 % [facility] Eosinophils Abs 0.2 0.0 - 0.4 x10(3)/[facility] Basophil % 0.6 % [facility] Baso Absolute 0.0 0.0 - 0.1 x10(3)/[facility] Immature Gran % 0.20 % [facility] Comment: Immature granulocytes(IG's)percentage and absolute count will include metamyelocytes, myelocytes, and promyelocytes. Blood smears from CBCs yielding IG's will be scanned manually for concordance. If this scan disagrees with the automated IG or if promyelocytes are noted, a manual differential will be performed. Immature Gran Absolute 0.01 0.00 - 0.04 x10(3)/[facility] Blood 07/23/2022 11:5 5 AM EDT 07/23/2022 12:07 PM EDT Narrative Resulting Agency Comment Spec In Lab Lalit Mcmahon MD HEMATOLOGY ORDERABLE S [facility] [place] [address] * Hemogram (07/23/2022 11:55 AM EDT) White Blood Cell 6.6 4.0 - 9.5 x10(3)/[facility] Red Blood Cell 4.50 4.00 - 5.21 x10(6)/[facility] Hemoglobin 13.7 11.7 - 15.5 g/dL [facility] Hematocrit 42.5 35.7 - 45.8 % [facility] Mean Cell Volume 94.4 82.6 - 94.4 fL [facility] Mean Cell Hemoglobin 30.4 27.1 - 32.0 pg [facility] Mean Cell Hemoglobin Concentration 32.2 31.7 - 35.0 g/dL [facility] Platelet 193 145 - 357 x10(3)/[facility] RDW Standard Deviation 45.5 37.0 - 46.0 fL [facility] RDW coefficient of variation 13.2 11.5 - 14.1 % [facility] Mean Platelet Volume 9.5 7.6 - 12.9 fL [facility] NRBC% auto 0.0 % [facility] NRBC Absolute 0.000 0.000 - 0.000 x10(3)/[facility] Blood 07/23/2022 11:5 5 AM EDT 07/23/2022 12:07 PM EDT Narrative Resulting Agency Comment Spec In Lab Lalit Mcmahon MD HEMATOLOGY ORDERABLE S [facility] [address] [place] [address] * (ABNORMAL) BMP w/fasting Glucose (07/23/2022 11:55 AM EDT) Glucose Fasting 110(H) 65 - 99 mg/dL [facility] Comment: ?Fasting* Glucose Interpretive Criteria Normal [...] of Diabetes Mellitus, Position Statement from the [place] [employer]. ??Diabetes Care, Volume 33, Supplement 1, Mar 2009 Blood Urea Nitrogen 23(H) 8 - 18 mg/dL [facility] Creatinine 1.07 0.70 - 1.20 mg/dL [facility] Sodium 141 135 - 145 mmol/L [facility] Potassium 4.8 3.5 - 5.0 mmol/L [facility] Comment: Please note: ??Patients with WBC >100,000 may have falsely elevated Potassium levels. ??For accurate Potassium quantification in these patients send serum separator tube (gold top) for subsequent determinations. ??Contact the Clinical Chemistry Laboratory if there are any questions. Chloride 106 98 - 107 mmol/L [facility] Carbon Dioxide 26 22 - 31 mmol/L [facility] Anion Gap 9 5 - 15 mmol/L [facility] Calcium 9.7 8.5 - 10.5 mg/dL [facility] Est Glomerular Filtration Rate 55(L) >=60 mL/min/1. 73 m?? [facility] Comment: This patient's estimated GFR was [...] Mcmahon MD CHEMISTRY ORDERABLES Performing Organization Address City/[facility] Co de Phone Number [facility] [place] [address] * Prothrombin Time (07/23/2022 11:55 AM EDT) Prothrombin Time 11.7 9.4 - 12.5 sec [facility] International Normalization Ratio 1.0 [facility] Comment: An INR <2.0 indicates adequate [...] MD HEMATOLOGY ORDERABLE S Performing Organization Address City/[facility] Co de Phone Number [facility] [place] [address] documented in this encounter Visit Diagnoses Diagnosis HFrEF (heart failure with reduced ejection fraction)- Primary Left bundle branch block Other left bundle branch block Nonischemic cardiomyopathy Other primary cardiomyopathies Cardiac resynchronization therapy defibrillator (ASPARAGUS BUNCHER-D) in place Left bundle branch block Other [...] Routine documented in this encounter Care Teams Powder Compounder Relationship Specialty Start Date End Date Lolly Oliveira MD [address] [place] [address] PCP - General 07/17/13 documented as of this encounter
--- OUTSIDE RECORDS SUMMARY | 2023-10-15 11:20 | XMS_ITS | Encounter Summary ---
Author Organization [facility] [place] [address] Care Team Providers Care Hand Driller Name Role Phone Lolly Oliveira MD Primary Care Provider [phone] Reason for Visit * Reason Onset Date Comments Pre Procedure Call 07/01/2022 Encounter Details Date Type Department Care Team (Late st Contact Info) Description 07/01/2022 Telephone Cardiology at [address] [phone] Rosenda Sutton RN Pre Procedure Call Social History Tobacco Use Types Packs/Day Years Used Date Smoking Tobacco: Never Sex and Gender Information Value Date Recorded Sex Assigned at Not on file Gender Identity Not on file Sexual Orientation Not on file documented as of this encounter Miscellaneous Notes * Telephone Encounter - Rosenda Sutton RN - 07/01/2022 9:30 AM EDTSummary: Pre Procedure Call: MACHINE PLASTER MIXER implant EP MACHINE TOOL TECHNICIAN INSTRUCTOR COORDINATION CHECKLIST Patient Name: Luna Mott Patient Performing Rope Laying Machine Operator: Lalit Mcmahon Referring Provider: Lolly Oliveira Date of Procedure: 07/23/22 Arrival Time/ Case Time: 12:00 pm / 1:00 pm Check In Location: Carbon Paste Mixer Operator Desk 4W Date Patient was Called: 07/01/22 Procedure: MACHINE PLASTER MIXER Company: [employer] Type: MACHINE PLASTER MIXER-D Laterality: LEFT Orders: Yes Lab Orders: Yes [...] overnight , understands that they will need otr van cdl truck driver on day of discharge Notified pt that Goff catheter may be placed on day of procedure depending on type & duration of case. documented in this encounter Plan of Treatment Upcoming Encounters Date Type Department Care Team (Late st Contact Info) Description 10/18/2023 10:00 AM EDT Hospital Encounter [place] [address] Arrived documented as of this encounter Visit Diagnoses Not on filedocumented in this encounter Care Teams Hand Driller Relationship Specialty Start Date End Date Lolly Oliveira MD [address] [place] [address] PCP - General 07/17/13 documented as of this encounter
--- OUTSIDE RECORDS SUMMARY | 2023-10-15 11:20 | XMS_ITS | Encounter Summary ---
Author Organization [facility] [place] [address] Care Team Providers Care Air Traffic Systems Technician Name Role Phone Lolly Oliveira MD Primary Care Provider [phone] Reason for Visit * Reason Comments Follow-up Encounter Details Date Type Department Care Team (Late st Contact Info) Description 06/06/2021 8:45 AM EDT Office Visit Dermatology at [address] [address] Clay Ramírez MD [address] [facility] [place] [address] Psoriasis, guttate Social History Tobacco Use Types [...] AM EDT Hospital Encounter Non-Invasive [place] [phone] Arrived documented as of this encounter Visit Diagnoses Diagnosis Psoriasis, guttate Other psoriasis documented in this encounter Care Teams Air Traffic Systems Technician Relationship Specialty Start Date End Date Lolly Oliveira MD [address] [place] [address] PCP - General 07/17/13 documented as of this encounter
--- OUTSIDE RECORDS SUMMARY | 2023-10-15 11:20 | XMS_ITS | Encounter Summary ---
Author Organization [facility] [place] [address] Care Team Providers Care Winery Cellar Hand Name Role Phone Lolly Oliveira MD Primary Care Provider [phone] Reason for Visit * Diagnostic Test (Routine) - Closed Specialty Diagnoses / Procedures Referred By Contac t Referred To Contact Radiology Diagnoses Left bundle branch block Nonischemic cardiomyopathy Procedures MRI Cardiac Morphology Function With Flow Velocity Quantification wwo Contrast MRI Cardiac Morphology Function wwo Contrast Lalit Mcmahon MD [facility] [place] [address] [facility] [place] [address] Referral ID Status Reason Start Date Expiration Date V isits Requested Visits Authorized [id number] Closed Specialty Service Requested 05/06/2022 11/07/2023 2 1 Encounter Details Date Type Department Care Team (Latest Contact Info) Description 07/14/2022 9:09 AM EDT - 07/14/2022 11:59 PM EDT Hospital [place] [address] Lalit Mcmahon MD [facility] [place] [address] Discharge Disposition: Home Social History Tobacco Use [...] with spacer fluticasone propionate (Flonase) 50 mcg/actuation [place], Suspension 1 spray by Each Nare route [...] AM EDT Hospital Encounter Non-[place] [address] Arrived documented as of this [...] mLs documented in this encounter Care Teams Winery Cellar Hand Relationship Specialty Start Date End Date Lolly Oliveira MD [address] [place] [address] PCP - General 07/17/13 documented as of this encounter
--- OUTSIDE RECORDS SUMMARY | 2023-10-15 11:20 | XMS_ITS | Encounter Summary ---
Author Organization [facility] [place] [address] Care Team Providers Care Cognos Name Role Phone Unavailable Primary Care Provider Unavailabl e Encounter Details Date Type Department Care Team (Late st Contact Info) Description 07/14/2013 External Results XRay at [address] [place] [address] Provider, Scanning Social History Tobacco Use Types [...] AM EDT Hospital Encounter [place] [address] Arrived documented as of this encounter Procedures [...]
--- OUTSIDE RECORDS SUMMARY | 2023-10-15 11:20 | XMS_ITS | Encounter Summary ---
[place] [address] Care Team Providers Care Planning Engineer Name Role Phone Lolly Oliveira MD Primary Care Provider [phone] Encounter Details Date Type Department Care Team (Latest Contact Info) Description 07/26/2013 9:45 AM EDT - 07/26/2013 11:59 PM EDT Hospital [place] [address] Mammographic microcalcification Social History Tobacco Use Types [...] AM EDT Hospital Encounter Non[place] [address] Arrived documented as of this encounter Procedures Procedure Name Priority Date/Time Associated Diagnosis Comments SURGICAL PATHOLOGY REPORT Routine 07/26/2013 12:12 PM EDT MAMMO SPECIMEN IMAGING DURING BIOPSY Routine 07/26/2013 11:58 AM EDT Mammographic microcalcification documented in this encounter Results * Surgical Pathology Report (07/26/2013 12:12 PM EDT) Final Diagnosis ? [facility] ? Provider: ?? ELENO CHRISTIAN ?? Pt. Name: ?? JING ALVARENGA ? Acc #: ?[id number] ?Pt. ? Col Date: ?? 07/26/2013 ? [...] Partially fragmented, fibrofatty needle core biopsies. ? [facility] ? Provider: ?? ELENO CHRISTIAN ?? Pt. Name: ?? JING ALVARENGA ? Acc #: ?[id number] ?Pt. ? Col Date: ?? 07/26/2013 ? [...] FCD, adenosis, DCIS 07/28/2013 8:29 AM EDT [facility] BREAST STRUCTURE / Unknown 07/26/2013 12:12 PM EDT 07/26/2013 12:12 PM EDT Eleno Christian MD PATHOLOGY/CYTOLOGY O RDERABLES Performing Organization Address City/State/[facility] Co de Phone Number [facility] [place] [phone] * Mammo Specimen Imaging During Biopsy (07/26/2013 [...] microcalcification documented in this encounter Care Teams Planning Engineer Relationship Specialty Start Date End Date Lolly Oliveira MD [address] [place] [address] PCP - General 07/17/13 documented as of this encounter
--- OUTSIDE RECORDS SUMMARY | 2023-10-15 11:20 | XMS_ITS | Encounter Summary ---
Author Organization [facility] [place] [address] Care Team Providers Care Master Coastal Waters Name Role Phone Lolly Oliveira MD Primary Care Provider [phone] Encounter Details Date Type Department Care Team (Latest Contact Info) Description 07/18/2013 [place] [phone] Alia Fraire MD [facility] DIAGNOSTIC [place] [address] Mammographic microcalcification (Primary Dx) Social History Tobacco [...] AM EDT Hospital Encounter [place] [address] Arrived documented as of this encounter Results [...] does not layer and, therefore, are not territory account representative of milk of calcium. Again, [...] does not layer and, therefore, are not territory account representative of milk of calcium. Again, these have an amorphous andpunctate appearance and remain indeterminate. Stereotactic guided biopsy isrecommended. Alia Fraire MD IMG MAMMO ORDERABLES documented in this encounter Visit Diagnoses Diagnosis Mammographic microcalcification- Primary Mammographic microcalcification Mammographic microcalcification Mammographic microcalcification Mammographic microcalcification documented in this encounter Care Teams Master Coastal Waters Relationship Specialty Start Date End Date Lolly Oliveira MD [address] [place] [address] PCP - General 07/17/13 documented as of this encounter
--- OUTSIDE RECORDS SUMMARY | 2023-10-15 11:20 | XMS_ITS | Encounter Summary ---
Author Organization [facility] [place] [address] Care Team Providers Care Men'S Golf Coach Name Role Phone Lolly Oliveira MD Primary Care Provider Encounter Details Date Type Department Care Team (Late st Contact Info) Description 06/29/2011 [place] [phone] Eleno Christian MD [facility] [place] [address] Social History Tobacco Use Types Packs/Day Years [...] AM EDT Hospital Encounter Non-Invasive [place] [address] Arrived documented as of this encounter Procedures [...] is a Non-reportable exam Eleno Christian MD [facility] FILM LIBRARY ORD ERABLES documented in this encounter Visit Diagnoses Not on filedocumented in this encounter Care Teams Men'S Golf Coach Relationship Specialty Start Date End Date Lolly Oliveira MD [address] [place] [address] PCP - General 07/17/13 documented as of this encounter
--- OUTSIDE RECORDS SUMMARY | 2023-10-15 11:20 | XMS_ITS | Encounter Summary ---
Author Organization [facility] [place] [address] Care Team Providers Care Automotive Center Manager Name Role Phone Lolly Oliveira MD Primary Care Provider [phone] Reason for Referral * Diagnostic Test (Routine) - Closed Specialty Diagnoses / Procedures Referred By Contac t Referred To Contact Radiology Diagnoses Left bundle branch block Nonischemic cardiomyopathy Procedures MRI Cardiac Morphology Function With Flow Velocity Quantification wwo Contrast MRI Cardiac Morphology Function wwo Contrast Lalit Mcmahon MD [facility] [place] [address] [place] [address] Referral ID Status Reason Start Date Expiration Date V isits Requested Visits Authorized [id number] Closed Specialty Service Requested 05/06/2022 11/07/2023 2 1 Encounter Details Date Type Department Care Team (Late st Contact Info) Description 05/06/2022 Orders Only Cardiology at [address] [address] Lalit Mcmahon MD [facility] [place] [address] Left bundle branch block; Nonischemic cardiomyopathy Social [...] AM EDT Hospital Encounter Non-[place] [address] Arrived documented as of this encounter Results [...] who have questions please contact the health early breastfeeding care specialist that requested your imaging first. ? Narrative [...] patients who have questions please contactthe health early breastfeeding care specialist that requested your imaging first. Electronically signed by: Greyson Herron MD, [facility]([phone]), at 07/15/2022 9:53 AM Lalit Mcmahon MD IMG MRI ORDERABLES documented in this encounter Visit Diagnoses Diagnosis Left bundle branch block Other left bundle branch block Nonischemic cardiomyopathy Other primary cardiomyopathies Left bundle branch block Other left bundle branch block Nonischemic cardiomyopathy Other primary cardiomyopathies documented in this encounter Care Teams Automotive Center Manager Relationship Specialty Start Date End Date Lolly Oliveira MD [address] [place] [address] PCP - General 07/17/13 documented as of this encounter
--- OUTSIDE RECORDS SUMMARY | 2023-10-15 11:20 | XMS_ITS | Encounter Summary ---
Author Organization [facility] [place] [address] Care Team Providers Care Shoe Stock Associate Name Role Phone Lolly Oliveira MD Primary Care Provider Encounter Details Date Type Department Care Team (Late st Contact Info) Description 04/01/2021 3:30 PM EST Office Visit Dermatology at [address] [phone] Clay Ramírez MD [address], [place] [address] Psoriasis, guttate Social History Tobacco Use Types [...] AM EDT Hospital Encounter Non-Invasive [place] [address] Arrived documented as of this encounter Visit Diagnoses Diagnosis Psoriasis, guttate Other psoriasis documented in this encounter Care Teams Shoe Stock Associate Relationship Specialty Start Date End Date Lolly Oliveira MD [address] [place] [address] PCP - General 07/17/13 documented as of this encounter
--- OUTSIDE RECORDS SUMMARY | 2023-10-15 11:20 | XMS_ITS | Encounter Summary ---
[place] [address] Care Team Providers Care Wash Rack Operator Name Role Phone Lolly Oliveira MD Primary Care Provider [phone] Encounter Details Date Type Department Care Team (Late st Contact Info) Description 04/09/2022 Refill Dermatology at [address] [address] Nora Meredith, UNEMPLOYMENT EXAMINER Social History Tobacco Use Types Packs/Day Years [...] AM EDT Hospital Encounter Non-[place] [address] Arrived documented as of this encounter Visit Diagnoses Not on filedocumented in this encounter Care Teams Wash Rack Operator Relationship Specialty Start Date End Date Lolly Oliveira MD [address] [place] [address] PCP - General 07/17/13 documented as of this encounter
--- OUTSIDE RECORDS SUMMARY | 2023-10-15 11:20 | XMS_ITS | Encounter Summary ---
Author Organization [facility] [place] [address] Care Team Providers Care Ceiling Installer Name Role Phone Lolly Oliveira MD Primary Care Provider [phone] Reason for Visit * Reason Comments Psoriasis Encounter Details Date Type Department Care Team (Late st Contact Info) Description 04/09/2022 1:45 PM EST Office Visit Dermatology at [address] [address] Clay Ramírez MD [address] [facility], [place] [address] Psoriasis, guttate Social History Tobacco Use Types [...] AM EDT Hospital Encounter Non-[place] [address] Arrived documented as of this encounter Visit Diagnoses Diagnosis Psoriasis, guttate Other psoriasis documented in this encounter Care Teams Ceiling Installer Relationship Specialty Start Date End Date Lolly Oliveira MD [address] [place] [address] PCP - General 07/17/13 documented as of this encounter
--- OUTSIDE RECORDS SUMMARY | 2023-10-15 11:20 | XMS_ITS | Encounter Summary ---
Author Organization [facility] [place] [address] Care Team Providers Care Mechanic General Operational Test Name Role Phone Lolly Oliveira MD Primary Care Provider [phone] Encounter Details Date Type Department Care Team (Late st Contact Info) Description 07/26/2013 [place] [phone] Eleno Christian MD [facility] DIAGNOST[place] [address] Social History Tobacco Use Types Packs/Day Years [...] AM EDT Hospital Encounter Non-Invasive [place] [address] Arrived documented as of this encounter Visit Diagnoses Not on filedocumented in this encounter Care Teams Mechanic General Operational Test Relationship Specialty Start Date End Date Lolly Oliveira MD [address] [place] [address] PCP - General 07/17/13 documented as of this encounter
--- OUTSIDE RECORDS SUMMARY | 2023-10-15 11:20 | XMS_ITS | Encounter Summary ---
Author Organization [facility] [place] [address] Care Team Providers Care Scale Tester Name Role Phone Lolly Oliveira MD Primary Care Provider [phone] Encounter Details Date Type Department Care Team (Latest Contact Info) Description 07/17/2013 8:40 AM EDT - 07/17/2013 11:59 PM EDT Hospital Encounter XRay at [address] [place] [phone] CLINIC, [facility] Discharge Disposition: Home Social [...] AM EDT Hospital Encounter Non[place] [address] Arrived documented as of this encounter Visit Diagnoses Not on filedocumented in this encounter Care Teams Scale Tester Relationship Specialty Start Date End Date Lolly Oliveira MD [address] [place] [address] PCP - General 07/17/13 documented as of this encounter
--- OUTSIDE RECORDS SUMMARY | 2023-10-15 11:20 | XMS_ITS | Encounter Summary ---
Author Organization [facility] [place] [address] Care Team Providers Care Economic Historian Name Role Phone Lolly Oliveira MD Primary Care Provider [phone] Reason for Visit * Reason Comments Follow-up Encounter Details Date Type Department Care Team (Late st Contact Info) Description 07/02/2022 8:00 AM EDT Office Visit Dermatology at [address] [phone] Clay Ramírez MD [address] [facility], [place] [address] Psoriasis, guttate Social History Tobacco Use Types [...] AM EDT Hospital Encounter Non-Invasive [place] [address] Arrived documented as of this encounter Visit Diagnoses Diagnosis Psoriasis, guttate Other psoriasis documented in this encounter Care Teams Economic Historian Relationship Specialty Start Date End Date Lolly Oliveira MD [address] [place] [address] PCP - General 07/17/13 documented as of this encounter
--- OUTSIDE RECORDS SUMMARY | 2023-10-15 11:20 | XMS_ITS | Encounter Summary ---
Author Organization [facility] [place] [address] Care Team Providers Care Civil Engineering Draftsperson Name Role Phone Lolly Oliveira MD Primary Care Provider [phone] Reason for Visit * Reason Comments Skin Check Encounter Details Date Type Department Care Team (Late st Contact Info) Description 11/23/2014 10:00 AM EDT Office Visit Dermatology at [address] [address] Clay Ramírez MD [address] [facility] [place] [address] Dermatofibroma; Nevus; Solar lentigo Discharge Disposition: Home [...] AM EDT Hospital Encounter Non-Invasive [place] [address] Arrived documented as of this encounter Visit Diagnoses Diagnosis Dermatofibroma Benign neoplasm of skin, site unspecified Nevus Benign neoplasm of skin, site unspecified Solar lentigo Other dyschromia documented in this encounter Care Teams Civil Engineering Draftsperson Relationship Specialty Start Date End Date Lolly Oliveira MD [address] [place] [address] PCP - General 07/17/13 documented as of this encounter
--- OUTSIDE RECORDS SUMMARY | 2023-10-15 11:20 | XMS_ITS | Encounter Summary ---
Author Organization [facility] [place] [address] Care Team Providers Care Boat Deckhand Name Role Phone Lolly Oliveira MD Primary Care Provider [phone] Encounter Details Date Type Department Care Team (Late Contact Info) Description 01/14/2022 Telephone Dermatology at [address] [address] Nora Meredith LPN Social History [...] AM EDT Hospital Encounter Non-Invasive [place] [address] Arrived documented as of this encounter Visit Diagnoses Not on filedocumented in this encounter Care Teams Boat Deckhand Relationship Specialty Start Date End Date Lolly Oliveira MD [address] [place] [address] PCP - General 07/17/13 documented as of this encounter
--- OUTSIDE RECORDS SUMMARY | 2023-10-15 11:20 | XMS_ITS | Encounter Summary ---
Author Organization [facility] [place] [address] Care Team Providers Care Card Placer Name Role Phone Lolly Oliveira MD Primary Care Provider [phone] Reason for Referral * Consultation (Routine) - Closed Specialty Diagnoses / Procedures Referred By Contact Referred To Contact Electrophysiology / Cardiology Diagnoses Left bundle branch block Cardiomyopathy, unspecified type AT MINIMUM PT NEEDS CONSIDERATION FOR DEFIBRILLATOR, ALSO CANDIDATE FOR RESYNCHRONIZATION THERAPY HER QRS IS >0.16 Lolly Oliveira MD [address] [place] [address] [facility] [place] Cardiology [address] [place] [phone] Referral ID Status Reason Start Date Expiration Date V isits Requested Visits Authorized [id number] Closed Consult, Test & Treat PCP Updated and/or Approved 04/30/2022 04/30/2023 6 6 Encounter Details Date Type Department Care Team (Latest Contact Info) Description 04/30/2022 Transcribe Orders eDH Incoming Referrals [phone] Lolly Oliveira MD [address] [place], [place] [id number] Left bundle branch block; Cardiomyopathy, unspecified type [...] AM EDT Hospital Encounter Non-Invasive [place] [address] Arrived Scheduled Referrals Name Type Priority Associated Diagnoses Orde r Schedule Referral to Cardiology Outpatient Referral Routine Left bundle branch block Cardiomyopathy, Unspecified Type Ordered: 04/30/2022 documented as of this encounter Visit Diagnoses Diagnosis Left bundle branch block Other left bundle branch block Cardiomyopathy, unspecified type documented in this encounter Care Teams Card Placer Relationship Specialty Start Date End Date Lolly Oliveira MD [address] [place] [address] PCP - General 07/17/13 documented as of this encounter
--- OUTSIDE RECORDS SUMMARY | 2023-10-15 11:20 | XMS_ITS | Encounter Summary ---
[place] [address] Care Team Providers Care Real Estate Executive Assistant Name Role Phone Lolly Oliveira MD Primary Care Provider [phone] Encounter Details Date Type Department Care Team [...] AM EDT Hospital Encounter Non-[place] [phone] Arrived documented as of this encounter Visit Diagnoses Not on filedocumented in this encounter Care Teams Real Estate Executive Assistant Relationship Specialty Start Date End Date Lolly Oliveira MD [address] [place], [place] [address] PCP - General 07/17/13 documented as of this encounter
--- OUTSIDE RECORDS SUMMARY | 2023-10-15 11:20 | XMS_ITS | Encounter Summary ---
Author Organization [facility] [place] [address] Care Team Providers Care Lumite Injector Name Role Phone Lolly Oliveira MD Primary Care Provider [phone] Encounter Details Date Type Department Care Team (Latest Contact Info) Description 07/26/2013 9:44 AM EDT - 07/26/2013 11:59 PM EDT Hospital En[place] [address] CLINIC, Lolly So MD [address] [place], [place] [id number] Mammographic microcalcification Discharge Disposition: Home Social History [...] AM EDT Hospital Encounter Non[place] [address] Arrived documented as of this encounter Procedures [...] are present on specimen digital X-ray. A Soapboxiva-Stereo 13 Cylinder marker clip was placed. Cranio-caudal [...] mLs documented in this encounter Care Teams Lumite Injector Relationship Specialty Start Date End Date Lolly Oliveira MD [address] [place] [address] PCP - General 07/17/13 documented as of this encounter
--- OUTSIDE RECORDS SUMMARY | 2023-10-15 11:20 | XMS_ITS | Encounter Summary ---
Author Organization [facility] [place] [address] Care Team Providers Care Rotor Pilot Name Role Phone Lolly Oliveira MD Primary Care Provider [phone] Encounter Details Date Type Department Care Team (Latest Contact Info) Description 07/26/2013 9:45 AM EDT - 07/26/2013 11:59 PM EDT Hospital Encounter [place] [address] Mammographic microcalcification Social History Tobacco Use Types [...] AM EDT Hospital Encounter Non-Invasive [place] [address] Arrived documented as of this encounter Procedures [...] microcalcification documented in this encounter Care Teams Rotor Pilot Relationship Specialty Start Date End Date Lolly Oliveira MD [address] [place] [address] PCP - General 07/17/13 documented as of this encounter
--- OUTSIDE RECORDS SUMMARY | 2023-10-15 11:20 | XMS_ITS | Encounter Summary ---
Author Organization [facility] [place] [address] Care Team Providers Care Diesel Technician Mechanic Name Role Phone Unavailable Primary Care Provider Unavailabl e Encounter Details Date Type Department Care Team (Late st Contact Info) Description 07/04/2012 [place] [address] Eleno Christian MD [facility] [place] [address] Social History Tobacco Use Types [...] AM EDT Hospital Encounter Non-[place] [address] Arrived documented as of this encounter Procedures [...] is a Non-reportable exam Eleno Christian MD [facility] [place] FILM LIBRARY ORD ERABLES documented in this encounter Visit Diagnoses Not on filedocumented in this encounter
--- OUTSIDE RECORDS SUMMARY | 2023-10-15 11:20 | XMS_ITS | Encounter Summary ---
Author Organization [facility] [place] [address] Care Team Providers Care Catering Administrative Assistant Name Role Phone Unavailable Primary Care Provider Unavailabl e Encounter Details Date Type Department Care Team (Late st Contact Info) Description 07/14/2013 [place] [address] Eleno Christian MD [facility] [place] [address] Social History Tobacco Use Types Packs/Day Years [...] AM EDT Hospital Encounter Non-Invasive [place] [address] Arrived documented as of this encounter Visit Diagnoses Not on filedocumented in this encounter
--- OUTSIDE RECORDS SUMMARY | 2023-10-15 11:20 | XMS_ITS | Encounter Summary ---
Author Organization [facility] [place] [address] Care Team Providers Care Health And Social Care Teacher Name Role Phone Lolly Oliveira MD Primary Care Provider [phone] Reason for Visit * Auth/Cert (Routine) Specialty Diagnoses / Procedures Referred By Contac t Referred To Contact Diagnoses Left bundle-branch block, unspecified Other cardiomyopathies Left bundle branch block [I44.7]Nonischemic cardiomyopathy [I42.8] Procedures PRG CATH PLMT LEFT HEART CATH & ARTS W/INJ & ANGIO IMG S&I ELECTROPHYSIOLOGY PROCEDURE Lalit Mcmahon MD [facility] [place] [address] [facility] Referral ID Status Reason Start Date Expiration Date Visits Re quested Visits Authorized [id number] 1 1 Encounter Details Date Type Department Care Team (Late st Contact Info) Description 07/23/2022 1:00 PM EDT - 07/23/2022 5:30 PM EDT Surgery [place] [address] Lalit Mcmahon MD [facility] [place] [address] ELECTROPHYSIOLOGY PROCEDURE Social History Tobacco Use Types Packs/Day Years Used Date Smoking Tobacco: Never Tobacco Cessation:Counseling Given: Not Answered Alcohol Use Standard Drinks/Week Comments Not Currently 0 (1 standard drink = 0.6 oz pur e alcohol) [facility] Inpatient Questions Answer Date Recorded Does [...] Luna Mott Patient Age: 71 y.o. Language: [place] Race: White Ethnicity: Not nor Admit date: 07/23/2022 Discharge date and time: 07/24/22 Attending Physician: Lalit Mcmahon MD Discharge Physician: Lalit Mcmahon MD Follow-up Recommendations for Providers: - s/p SANITARY ENGINEERING TEACHER-D implant - post implant QRS 130 ms - reviewed post-implant instructions - no medication changes - Follow up in device clinic for wound/device check in ~10 days ([facility]) Inpatient Provider Contact Information: Cardiac Electrophysiology - Discharge Diagnoses (Hospital Problems) and Secondary Diagnoses (Chronic Problems): Active Hospital Problems Diagnosis ??? HFrEF (heart failure with reduced ejection fraction) Resolved Hospital Problems No resolved problems to display. Active Non-Hospital Problems Diagnosis ??? Dermatofibroma ??? Nevus ??? Solar lentigo Operations/Major Procedures: 07/23/22: [facility] SANITARY ENGINEERING TEACHER-D implant History of Presentation: 71 y.o. female with a history of HFrEF, LBBB, QRS >150, NYHA II who is POD#1 of SANITARY ENGINEERING TEACHER-D implant ([employer]). Hospital Course: Elective admission for SANITARY ENGINEERING TEACHER-D implant Admitted post-implant for pain management, telemetry [...] (heart failure with reduced ejection fraction) [I50.20] SANITARY ENGINEERING TEACHER-D implant Admission Condition: good Indication for Admission: [...] g Refills: 3 fluticasone propionate 50 mcg/actuation [place], Suspension Commonly known as: Flonase 1 spray [...] incision. Make sure to use a cloth wire weaver (such as a towel) in between the [...] F. The office scheduling phone number is [phone]. ARM MOVEMENT RESTRICTIONS POST-IMPLANT - Do not [...] please call the Cardiac ElectrophysiologyTriage Nurse at [phone], option 3. General Instructions None Discharge References/Attachments [...] incision. Make sure to use a cloth wire weaver (such as a towel) in between the [...] F. The office scheduling phone number is [phone]. ARM MOVEMENT RESTRICTIONS POST-IMPLANT - Do not [...] please call the Cardiac ElectrophysiologyTriage Nurse at [phone], option 3. documented in this encounter Medications [...] with spacer fluticasone propionate (Flonase) 50 mcg/actuation [place], Suspension 1 spray by Each Nare route [...] Cardiac Electrophysiology Post-Implant Device Interrogation Luna Mott [id number] 07/24/2022 History: Luna Mott is a 71 y.o. female with a history of HFrEF, LBBB, QRS >150, NYHA II who is POD#1 of SANITARY ENGINEERING TEACHER-D implant ([employer]). Overall feels well this morning. Ready [...] WOB Neuro- A&Ox3 Device Interrogation: Data ?? Surveyor Instrument Assistant Model # Serial # Generator [employer] [id number] Atrial Lead [employer] [id number] RV Lead [employer] [id number] [id number] LV Lead [employer] [id number] ?? Diagnostics Pacing Mode: DDD 60-130 Underlying Rhythm: Tyler Atrial Episodes: None Ventricular Episodes: None FINAL PROGRAMMING: Pacing: Mode Lower rate (ppm) Upper rate (ppm) ?? DDD 60 130 VF: Rate (bpm) #Antitachycardia pacing First shock energy (J) ?? 200 Quick convert 41 VT: 170 Monitor only Monitor only ? Battery and Leads Impedances (ohms) Sensing (mV) Thresholds HV RA RV LV RA RV LV RA RV LV 73 [phone] (LVa) 7.7 13.1 >25 0.4V @ 0.4 ms 0.4V @ 0.4 ms 0.5 V @ 1.0 ms POD#1 CXR: All leads in nominal positioning Impression: 71 y.o. female who is s/p SANITARY ENGINEERING TEACHER-D implant for LBBB, NYHA II, HFrEF. - Appropriate device function post-implant - CXR negative for post-implant complications - Changed sensed AV delay from 130 to 110 Plan: 1. Reviewed standard post-implant discharge instructions (see patient instructions) including arm restrictions, wound care, bathing, and driving 2. No medication changes. 3. Follow up in device clinic for wound/device check in ~10 days ([facility]) Fadi Nunez MD 07/24/2022 Pager: [phone] I met with the patient today and [...] agreement. ? Dr. Lalit Mcmahon, electrophysiology attending ([id number]) * Zaria Wright RN - 07/23/2022 8:28 [...] HF, QRS > 150 ms presents for SANITARY ENGINEERING TEACHER-D placement. ROS: Denies recent fevers or chills [...] 0.9) flush 5 mL 5 mL Intravenous [id number] ramos MD ??? sodium chloride 0.9 % [...] HF, QRS > 150 ms presents for SANITARY ENGINEERING TEACHER-D placement. Backup would be LBBAP lead. Antibiotics: cefazolin Rationales for, intended benefits and potential risk of planned procedures reviewed. The patient indicated understanding and agreement with the plan. Informed consent signed. Procedure checklist completed. Fadi Nunez MD Cardiac Electrophysiology Fellow [facility] Pager [phone] 07/23/2022 I met with the patient today [...] agreement. ? Dr. Lalit Mcmahon, electrophysiology attending ([id number]) documented in this encounter Miscellaneous Notes * Brief Op Note - Lalit Mcmahon MD - 07/23/2022 4:04 PM EDT Brief Operative Note Patient Name: Luna Mott : [id number] MR#: [id number] Case Date: 07/23/2022 Surgeon: Surgeon(s) and Role: [...] EDT Hospital Encounter Non-In[place] [address] Arrived Scheduled Orders Name Type Priority Associated Diagnoses Orde r Schedule EKG 12 Lead ECG Routine Cardiac resynchronization therapy defibrillator (SANITARY ENGINEERING TEACHER-D) in place One Time for 1 Occurrences [...] (Bezet) 522 ms MUSE SYSTEM Calculated R [place] 78 degrees MUSE SYSTEM Calculated T [place] -71 degrees MUSE SYSTEM INTERPRETATION AV dual-paced [...] questions please contact the health healthcare administration intern that requested your imaging first. ? Electronically signed by: Kwame Vargas MD, [facility] ([phone]), at 07/24/2022 6:43 AM Narrative 07/24/2022 6:43 [...] have questions please contactthe health healthcare administration intern that requested your imaging first. Electronically signed by: Kwame Vargas MD, [facility]([phone]), at 07/24/2022 6:43 AM Lalit Mcmahon MD IMG DX ORDERABLES * ELECTROPHYSIOLOGY PROCEDURE (07/23/2022 1:11 PM EDT) Anatomical Region Laterality Modality Other Narrative 07/23/2022 4:24 PM EDT Table formatting from the original result was not included. BIVENTRICULAR ICD IMPLANTATION Chicken Catcher: Lalit Mcmahon MD Fellow: Fdai Nunez MD Referring physician: Zamzam Boss MD [...] lateral branch of the CS in the EQUATORIAL GUINEAN view. This branch was cannulated with a [...] the entire procedure. LEAD AND GENERATOR DATA: Surveyor Instrument Assistant Model # Serial # Generator [employer] [id number] Atrial Lead [employer] [id number] RV Lead [employer] [id number] [id number] LV Lead [employer] [id number] PACE/SENSE DATA: Sensed wave (mV) Threshold (V) [...] (cGycm2) 300 CONCLUSIONS: Successful implantation of a [employer] biventricular ICD for primary prevention and treatment of symptoms related to congestive heart failure. Follow up in EP clinic in 1-2 months. Procedures performed: new ICD system ( cpt 43415-C6); implant LV lead at time of ICD insertion (cpt 20257) I have read, edited and approve of this report: Lalit Mcmahon MD S Cardiac Electrophysiology 07/23/2022 4:22 PM Procedure Note Lalit Mcmahon MD - 07/23/2022 BIVENTRICULAR ICD IMPLANTATION Chicken Catcher: Lalit Mcmahon MD Fellow: Fadi Nunez MD [...] appropriate lateralbranch of the CS in the EQUATORIAL GUINEAN view. This branch was cannulated with a [...] in the entireprocedure. LEAD AND GENERATOR DATA: Surveyor Instrument Assistant Model # Serial # Generator [employer] [id number] Atrial Lead [employer] [id number] RV Lead [employer] 0672 [id number] LV Lead [employer] [id number] PACE/SENSE DATA: Sensed wave (mV) Threshold (V) [...] (cGycm2) 300 CONCLUSIONS: Successful implantation of a [employer] biventricular ICD forprimary prevention and treatment of symptoms related to congestive heartfailure. Follow up in EP clinic in 1-2 months. Procedures performed: new ICD system ( cpt 48222-I0); implant LV lead attime of ICD insertion (cpt 72384) I have read, edited and approve of this report: Lalit Mcmahon MD S Cardiac Electrophysiology 07/23/2022 4:22 PM Lalit Mcmahon MD EP PROCEDURE ORDERAB LES * POCT Glucose (07/23/2022 12:54 PM EDT) [facility] Signature Glucose, POC 83 65 - 199 mg/dL [facility] Comment: Supplemental ranges: <140 mg/dL before meals <180 mg/dL all other times of the day Blood 07/23/2022 12:5 4 PM EDT 07/23/2022 12:54 PM EDT Lalit Mcmahon MD POINT OF CARE TEST O RDERABLES Performing Organization Address City/[facility]/ZIP Co de Phone Number [facility] [place] [address] * EKG 12 Lead (07/23/2022 12:33 PM EDT) Ventricular rate 72 BPM MUSE SYSTEM Atrial Rate 72 BPM MUSE SYSTEM P-R Interval 158 ms MUSE SYSTEM QRS Duration 176 ms MUSE SYSTEM Q-T Interval 458 ms MUSE SYSTEM QTC Calculated (Bezet) 501 ms MUSE SYSTEM Calculated P [place] 34 degrees MUSE SYSTEM Calculated R [place] 12 degrees MUSE SYSTEM Calculated T [place] -173 degrees MUSE SYSTEM INTERPRETATION Normal sinus rhythm Left bundle branch block Abnormal ECG No previous ECGs available Confirmed by MD Salome, Lalit ([id number]) on 07/23/2022 1:19:03 PM MUSE SYSTEM 07/23/2022 12:3 3 PM EDT 07/23/2022 1:19 PM EDT Lalit Mcmahon MD ECG ORDERABLES Performing Organization Address [facility] Co de Phone Number MUSE SYSTEM * Differential, Automated (07/23/2022 11:55 AM EDT) Neutrophil % 62.6 % [facility] Neutrophil Absolute 4.14 1.70 - 6.10 x10(3)/[facility] Lymph % 27.0 % [facility] Lymphocytes Abs 1.8 0.9 - 3.2 x10(3)/[facility] Monocyte % 7.3 % [facility] Monocyte Abs 0.5 0.3 - 0.9 x10(3)/[facility] Eos % 2.3 % [facility] Eosinophils Abs 0.2 0.0 - 0.4 x10(3)/[facility] Basophil % 0.6 % [facility] Baso Absolute 0.0 0.0 - 0.1 x10(3)/[facility] Immature Gran % 0.20 % [facility] Comment: Immature granulocytes(IG's)percentage and absolute count will include metamyelocytes, myelocytes, and promyelocytes. Blood smears from CBCs yielding IG's will be scanned manually for concordance. If this scan disagrees with the automated IG or if promyelocytes are noted, a manual differential will be performed. Immature Gran Absolute 0.01 0.00 - 0.04 x10(3)/[facility] Blood 07/23/2022 11:5 5 AM EDT 07/23/2022 12:07 PM EDT Narrative Resulting Agency Comment Spec In Lab Lalit Mcmahon MD HEMATOLOGY ORDERABLE S [facility] [place] [address] * Hemogram (07/23/2022 11:55 AM EDT) White Blood Cell 6.6 4.0 - 9.5 x10(3)/[facility] Red Blood Cell 4.50 4.00 - 5.21 x10(6)/[facility] Hemoglobin 13.7 11.7 - 15.5 g/dL [facility] Hematocrit 42.5 35.7 - 45.8 % [facility] Mean Cell Volume 94.4 82.6 - 94.[address] [facility] Mean Cell Hemoglobin 30.4 27.1 - 32.[address] [facility] Mean Cell Hemoglobin Concentration 32.2 31.7 - 35.0 g/dL [facility] Platelet 193 145 - 357 x10(3)/[facility] RDW Standard Deviation 45.5 37.0 - 46.[address] [facility] RDW coefficient of variation 13.2 11.5 - 14.1 % [facility] Mean Platelet Volume 9.5 7.6 - 12.[address] [facility] NRBC% auto 0.0 % [facility] IT[facility] NRBC Absolute 0.000 0.000 - 0.000 x10(3)/[facility] Blood 07/23/2022 11:5 5 AM EDT 07/23/2022 12:07 PM EDT Narrative Resulting Agency Comment Spec In Lab Lalit Mcmahon MD HEMATOLOGY ORDERABLE S [facility] [place] [address] * (ABNORMAL) BMP w/fasting Glucose (07/23/2022 11:55 AM EDT) Glucose Fasting 110(H) 65 - 99 mg/dL [facility] Comment: ?Fasting* Glucose Interpretive [...] of Diabetes Mellitus, Position Statement from the [employer]. ??Diabetes Care, Volume 33, Supplement 1, Mar 2009 Blood Urea Nitrogen 23(H) 8 - 18 mg/dL [facility] Creatinine 1.07 0.70 - 1.20 mg/dL [facility] Sodium 141 135 - 145 mmol/L [facility] Potassium 4.8 3.5 - 5.0 mmol/L [facility] Comment: Please note: ??Patients with WBC >100,000 may have falsely elevated Potassium levels. ??For accurate Potassium quantification in these patients send serum separator tube (gold top) for subsequent determinations. ??Contact the Clinical Chemistry Laboratory if there are any questions. Chloride 106 98 - 107 mmol/L [facility] Carbon Dioxide 26 22 - 31 mmol/L [facility] Anion Gap 9 5 - 15 mmol/L [facility] Calcium 9.7 8.5 - 10.5 mg/dL [facility] Est Glomerular Filtration Rate 55(L) >=60 mL/min/1. 73 m?? [facility] Comment: This patient's estimated GFR [...] Mcmahon MD CHEMISTRY ORDERABLES Performing Organization Address [facility] Co de Phone Number [facility] [place] [address] * Prothrombin Time (07/23/2022 11:55 AM EDT) Prothrombin Time 11.7 9.4 - 12.[address] [facility] International Normalization Ratio 1.0 [facility] Comment: An INR <2.0 [...] MD HEMATOLOGY ORDERABLE S Performing Organization Address City/[facility] Co de Phone Number [facility] [place] [address] documented in this encounter Visit Diagnoses Diagnosis HFrEF (heart failure with reduced ejection fraction)- Primary Left bundle branch block Other left bundle branch block Nonischemic cardiomyopathy Other primary cardiomyopathies Cardiac resynchronization therapy defibrillator (SANITARY ENGINEERING TEACHER-D) in place Left bundle branch block Other [...] Routine documented in this encounter Care Teams Health And Social Care Teacher Relationship Specialty Start Date End Date Lolly Oliveira MD [address] [place] [address] PCP - General 07/17/13 documented as of this encounter
--- OUTSIDE RECORDS SUMMARY | 2023-10-15 11:20 | XMS_ITS | Encounter Summary ---
[place] [address] Care Team Providers Care Dimensional Inspector Name Role Phone Lolly Oliveira MD Primary Care Provider [phone] Encounter Details Date Type Department Care Team [...] AM EDT Hospital Encounter Non-[place] [phone] Arrived documented as of this encounter Visit Diagnoses Not on filedocumented in this encounter Care Teams Dimensional Inspector Relationship Specialty Start Date End Date Lolly Oliveira MD [address] [place], [place] [address] PCP - General 07/17/13 documented as of this encounter
--- OUTSIDE RECORDS SUMMARY | 2023-10-15 11:20 | XMS_ITS | Encounter Summary ---
Author Organization [facility] [place] [address] Care Team Providers Care Leg Man Name Role Phone Lolly Oliveira MD Primary Care Provider [phone] Reason for Referral * Diagnostic Test (Routine) - Closed Specialty Diagnoses / Procedures Referred By Contac t Referred To Contact Radiology Diagnoses Left bundle branch block Nonischemic cardiomyopathy Procedures MRI Cardiac Morphology Function With Flow Velocity Quantification [facility] Contrast MRI Cardiac Morphology Function wwo Contrast Lalit Mcmahon MD [facility] [place] [address] [place] [address] Referral ID Status Reason Start Date Expiration Date V isits Requested Visits Authorized [id number] Closed Specialty Service Requested 05/06/2022 11/07/2023 2 1 Reason for Visit * Diagnostic Test (Routine) - Closed Specialty Diagnoses / Procedures Referred By Contac t Referred To Contact Radiology Diagnoses Left bundle branch block Nonischemic cardiomyopathy Procedures MRI Cardiac Morphology Function With Flow Velocity Quantification o Contrast MRI Cardiac Morphology Function wwo Contrast Lalit Mcmahon MD [facility] [place] [address] [place] [address] Referral ID Status Reason Start Date Expiration Date V isits Requested Visits Authorized [id number] Closed Specialty Service Requested 05/06/2022 11/07/2023 2 1 Encounter Details Date Type Department Care Team (Latest Contact Info) Description 07/14/2022 9:08 AM EDT Hospital Encounter MRI at [facility] [place] [phone] Lalit Mcmahon MD [facility] [place] [address] Left bundle branch block; Nonischemic cardiomyopathy Discharge [...] with spacer fluticasone propionate (Flonase) 50 mcg/actuation [place], Suspension 1 spray by Each Nare route [...] y.o. : 1950 [address] [facility] [address] Female [phone] (home) No relevant phone numbers on file. Lolly Oliveira MD None Allergies Allergen Reactions ??? Sulfa (Sulfonamide Antibiotics) Date/Time of call: July 07, 2022/11:03 AM/ PREVIOUS MRI SCAN? HEIGHT: WEIGHT: SCHEDULED SCAN: MRI CARDIAC MORPHOLOGY FUNCTION WITH FLOW VELOCITY QUANTIFICATION WWO CONTRAST [[id number]] Order Questions Answers Where will study be performed? [facility] Radiology [120] SUBJECTIVE: Very Claustrophobic CAN YOU [...] ( [place] ) You must have a driver manager present when you check in. This patient has been informed that they require a driver manager to drive them home after this procedure. In the absence of a driver manager, IR will not be able to sedate for your scan. Pt verbalized understanding of these instructions during the pre-procedure education via phone. Yes Name of driver manager: Daughter Phone number: PRIOR SCAN DATE/S SEDATION TYPE SUCCESSFUL 07/14/22 MRI Cardiac Morphology Function with Flow Velocity Quantification wwo Contrast Ativan 1mg x 1 dose Pass Revised 08/03/17 documented in this encounter Plan of Treatment Upcoming Encounters Date Type Department Care Team (Late st Contact Info) Description 10/18/2023 10:00 AM EDT Hospital Encounter [place] [address] Arrived documented as of this encounter Procedures [...] who have questions please contact the health acute care surgeon that requested your imaging first. ? Narrative [...] patients who have questions please contactthe health acute care surgeon that requested your imaging first. Lalit Mcmahon [...] mg documented in this encounter Care Teams Leg Man Relationship Specialty Start Date End Date Lolly Oliveira MD [address] [place] [address] PCP - General 07/17/13 documented as of this encounter
--- OUTSIDE RECORDS SUMMARY | 2023-10-15 11:20 | XMS_ITS | Encounter Summary ---
Author Organization [facility] [place] [address] Care Team Providers Care Smog Technician Name Role Phone Lolly Oliveira MD Primary Care Provider Encounter Details Date Type Department Care Team (Late st Contact Info) Description 10/09/2021 Telephone Dermatology at [address] [address] Nora Meredith LPN Social History [...] AM EDT Hospital Encounter Non-[place] [address] Arrived documented as of this encounter Visit Diagnoses Not on filedocumented in this encounter Care Teams Smog Technician Relationship Specialty Start Date End Date Lolly Oliveira MD [address] [place] [address] PCP - General 07/17/13 documented as of this encounter
--- OUTSIDE RECORDS SUMMARY | 2023-10-15 11:20 | XMS_ITS | Encounter Summary ---
Author Organization [facility] [place] [address] Care Team Providers Care Claims Account Manager Name Role Phone Lolly Oliveira MD Primary Care Provider [phone] Reason for Visit * Reason Comments Follow-up Encounter Details Date Type Department Care Team (Late st Contact Info) Description 05/21/2022 8:00 AM EDT Office Visit Dermatology at [address] [phone] Clay Ramírez MD [address] [facility] [place] [address] Psoriasis, guttate Social History Tobacco Use Types [...] AM EDT Hospital Encounter Non-Invasive [place] [address] Arrived documented as of this encounter Visit Diagnoses Diagnosis Psoriasis, guttate Other psoriasis documented in this encounter Care Teams Claims Account Manager Relationship Specialty Start Date End Date Lolly Oliveira MD [address] [place] [address] PCP - General 07/17/13 documented as of this encounter
--- OUTSIDE RECORDS SUMMARY | 2023-10-15 11:20 | XMS_ITS | Encounter Summary ---
Author Organization [facility] [place] [address] Care Team Providers Care Occupational Health And Safety Adviser Name Role Phone Lolly Oliveira MD Primary Care Provider Encounter Details Date Type Department Care Team (Latest Contact Info) Description 07/20/2013 9:26 AM EDT - 07/20/2013 11:59 PM EDT Hospital [place] [phone] CLINIC, Lolly So MD [address] [place], [place] [id number] Mammographic microcalcification Discharge Disposition: Home Social History [...] AM EDT Hospital Encounter [place] [address] Arrived documented as of this encounter Procedures [...] does not layer and, therefore, are not help desk representative of milk of calcium. Again, these [...] does not layer and, therefore, are not help desk representative of milk of calcium. Again, these have an amorphous andpunctate appearance and remain indeterminate. Stereotactic guided biopsy isrecommended. Alia Fraire MD IMG MAMMO ORDERABLES documented in this encounter Visit Diagnoses Diagnosis Mammographic microcalcification documented in this encounter Care Teams Occupational Health And Safety Adviser Relationship Specialty Start Date End Date Lolly Oliveira MD [address] [place] [address] PCP - General 07/17/13 documented as of this encounter
--- OUTSIDE RECORDS SUMMARY | 2023-10-20 11:51 | XMS_ITS | Continuity of Care Document ---
Author Organization [place] [facility], [facility] Address [address] [place] [address] Care Team Providers Care Instrument Shop Supervisor Name Role Phone [facility] EYE [facility] OFFICE Optometris t ASHLY THURSTON Electric Locomotive Firer/Fireman JAYCOB MARTINEZ Orthopedic Surgeon ROXANA KELLEY Slip Operator FLOWER RAMSEY Dentist [phone] Assessment No assessment recorded. Plan of Treatment Reminders Order Date Submit Date Provider Last Modified By Organization Details Last Modified Time Details Appointments Follow Up 30 2023 07:30A M Not available Not available Not available Lab None recorded. Referral physical therapist referral 2023 024 Chinedu Amato PT, [address], [place], [address], 10/18/2023 12:01:58 Procedures None recorded. Surgeries None recorded. Imaging None recorded. Medication Orders meclizine 25 mg tablet 2023 024 [id number], [address] [place], [address], 09/01/2023 13:22:14 Patient TargetsNo targets recorded. Patient Instructions Encounter Date Encounter Id Patient Instructions Last Modified By Organization Details Last Modified Time 09/01/2023 [id number] 1. 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 She does keep albuterol inhaler available if needed. Problem Code: 493.90; Problem Code Type: ICD-9; Not Available [facility] 3 04:01:51 Atypical glandular cells on cervical Papanicolaou smear Active 2007 Problem Code: 795.00; Problem Code Type: ICD-9; Not Available [facility] 3 04:01:51 Dizziness and giddiness Active 201404/14/2021 - Comments only - Lolly Oliveira MD - , Intermittent. She has learned to deal with it using the Jd's maneuver. She will call if any significant worsening. Problem Code: R42; Problem Code Type: ICD-10; Not Available [facility] 3 04:01:52 Essential hypertension Active 201401/11/2022 - Comments only - Lolly Oliveira MD - Blood pressure well controlled with the lisinopril and Toprol. Problem Code: I10; Problem Code Type: ICD-10; Not Available [facility] 3 04:01:52 Adult health examination Active 201504/16/2022 - Comments only - Lolly Oliveira MD - UTD with mammo, has a DEXA scheduled ( dx of osteoporosis) , will check an A1c. Problem Code: Z00.00; Problem Code Type: ICD-10; Not Available [facility] 3 04:01:52 Disorder of skin and/or subcutaneous tissue Active 201509/17/2015 - Comments only - Lolly Oliveira MD - the lesions on the buttucks appear to have been possible boils that are now healing vs atopic rxn resolving. At this point no tx needed. If worsening/rec urring she will call. I don't believe these are related to rubbing while walking Problem Code: L98.9; Problem Code Type: ICD-10; Not Available [facility] 3 04:01:52 Pain in right hip joint Completed 201512/02/2022 Problem Code: M25.551; Problem Code Type: ICD-10; Not Available [facility] 3 04:01:52 Onychomycosis due to dermatophyte Active 201609/22/2016 - Comments only - Lolly Oliveira MD - she is going to contact podiatry to find out if they have any other topical txs that might work. She is not interested in systemic tx Problem Code: B35.1; Problem Code Type: ICD-10; Not Available [facility] 3 04:01:52 Hearing loss of right ear Completed 201712/10/2017 11/26/2017 - Comments only - Naseem Gil PA-C - Ceruminosis treated in-office today. If hearing fails to be fully restored over the course of the weekend, will consider for ENT refer for formal audiology assessment. Problem Code: H91.91; Problem Code Type: ICD-10; Not Available [facility] 3 04:01:52 Abnormal weight gain Active 2018 Problem Code: R63.5; Problem Code Type: ICD-10; Not Available [facility] 3 04:01:53 Disorder of hip joint Active 201801/11/2022 - Comments only - Lolly Oliveira MD - ,rt. For which she would like a total hip replacement. 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 She is trying to continue being as mobile as she can comfortably. Problem Code: M12.859; Problem Code Type: ICD-10; Not Available [facility] 3 04:01:53 Acute vaginitis Completed 201801/04/2019 12/21/2018 - Comments only - Naseem Gil PA-C - Will await resutls of today's collected VPS to determine indication for further treatment. Problem Code: N76.0; Problem Code Type: ICD-10; Not Available [facility] 3 04:01:53 Intertrigo Completed 201801/04/2019 12/21/2018 - Comments only - Naseem Gil PA-C - Patient encouraged to keep skin folds as clean and dry as possible to avoid reactivation (suggested inspector hairspring truing after bathing). Additionally, could consider to use OTC DESITIN for acute skin healing. Problem Code: L30.4; Problem Code Type: ICD-10; Not Available [facility] 3 04:01:53 Pre-surgery evaluation Completed 201801/23/2019 01/09/2019 - Comments only - Naseem Gil PA-C - Today's EKG shows stable LBBB (compared to study 10/19/14) with NSR at 69bpm. Patient to f/u for pre-operative laboratory testing and anesthesia consult as scheduled 01/17/19. Problem Code: Z01.818; Problem Code Type: ICD-10; Not Available [facility] 3 04:01:53 Hip joint prosthesis present Active 2018 Problem Code: Z96.642; Problem Code Type: ICD-10; Not Available [facility] 3 04:01:53 Dyspnea Completed 201903/27/2019 03/13/2019 - Comments only - Jeniane Rathburn PA-C - Suspect some component of RAD. Assuming today's laboarory testing returns as benign, patient agrees to trial RXd VENTOLIN HFA 2 puffs Q4-6hr PRN as management. We will plan to touch base with patient by phone on F 03/17/19 for status update. Problem Code: R06.02; Problem Code Type: ICD-10; Not Available [facility] 3 04:01:54 Edema Completed 201906/21/2019 06/07/2019 - Comments only - Naseem Gil PA-C - Patient reassured nothing concerning on today's PX to raise suspicion for DVT. Suspect minor calf muscle strain. OK to continue to use compression stockings for symtpomatic relief and consider calf stretches. F/U PRN. 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 - Comments only - Lolly Oliveira MD - being followed by derm, remaining under reasonable control with the UV tx and prn clobetasol cream Problem Code: L40.4; Problem Code Type: ICD-10; Not Available [facility] 3 04:01:54 Stool finding Active 2021 Problem Code: R19.5; Problem Code Type: ICD-10; Not Available [facility] 3 04:01:54 Specialized medical examination Active 2021 Problem Code: Z01.89; Problem Code Type: ICD-10; Not Available [facility] 3 04:01:54 Edema Active 2021 Problem Code: R60.9; Problem Code Type: ICD-10; Not Available [facility] 3 04:01:55 Screening mammography Active 2021 Problem Code: Z12.31; Problem Code Type: ICD-10; Not Available [facility] 3 04:01:55 Abnormal finding on evaluation procedure Active 08/17/ 2022 Problem Code: R89.9; Problem Code Type: ICD-10; Not Available [facility] 3 04:01:55 Dyspnea Active 2021 Problem Code: R06.02; Problem Code Type: ICD-10; Not Available [facility] 3 04:01:55 Cardiomyopath y Active 202109/04/2022 - Comments only - Lolly Oliveira MD - Clinically remaining stable on the lisinopril, furosemide 20 mg daily, Jardiance, Toprol, rosuvastatin, aspirin. ICD/pacemaker in place. Following with cardiology. She is walking/exerc ising regularly. Problem Code: I42.9; Problem Code Type: ICD-10; Not Available [facility] 3 04:01:55 Heart failure Active 2021 Problem Code: I50.9; Problem Code Type: ICD-10; Not Available [facility] 3 04:01:56 Family history of breast cancer Active 2021 Problem Code: Z80.3; Problem Code Type: ICD-10; Not Available [facility] 3 04:01:56 Burn Active 202101/11/2022 - Comments only - Lolly Oliveira MD - Healing slowly, no evidence of infection. If she has any further questions regarding this she will let us know. Problem Code: T30.0; Problem Code Type: ICD-10; Not Available [facility] 3 04:01:56 Senile osteoporosis Active 202101/11/2022 - Comments only - Lolly Oliveira MD - Due for a repeat DEXA scan. Ordered. She does take an [id number] ter vitamin D supplement I believe. Problem Code: M81.0; Problem Code Type: ICD-10; Not Available [facility] 3 04:01:56 Hyperlipidemi a Active 202204/16/2022 - Comments only - Lolly Oliveira MD - will check LFTs, CPK, on rosuvastatin 5mg daily which has brought her lipids into goal range. Problem Code: E78.5; Problem Code Type: ICD-10; Not Available [facility] 3 04:01:56 Adjustment disorder Active 2022 Problem Code: F43.20; Problem Code Type: ICD-10; Not Available [facility] 3 04:01:56 Dysuria Active 2022 Problem Code: R30.9; Problem Code Type: ICD-10; Not Available [facility] 3 04:01:57 Itching of skin Active 2022 Problem Code: L29.8; Problem Code Type: ICD-10; Not Available [facility] 3 04:01:57 Automatic implantable cardiac defibrillator in situ Active 2022 Problem Code: Z95.810; Problem Code Type: ICD-10; Not Available [facility] 3 04:01:57 Glycosuria Active 202209/04/2022 - Comments only - Lolly Oliveira MD - , No prior diagnosis of diabetes. She is developing diabetes that could be number perineal symptoms. Problem Code: R81; Problem Code Type: ICD-10; Not Available [facility] 3 04:01:57 Vulval and/or perineal noninflammato ry disorders Active 202209/04/2022 - Comments only - Lolly Oliveira MD - , Predominantly itchy. Last V [...] N90.89; Problem Code Type: ICD-10; Not Available [facility] 3 04:01:57 Allergic contact dermatitis Completed 202012/02/2022 Problem Code: L23.9; Problem Code Type: ICD-10; Not Available [facility] 3 04:02:02 Essential hypertension Completed 200107/25/2015 Problem Code: 401.9; Problem Code Type: ICD-9; Not Available [facility] 3 04:02:03 Polyp of colon Completed 201006/05/2021 Problem Code: K63.5; Problem Code Type: ICD-10; Not Available [facility] 3 04:02:03 History of vertigo Completed 201012/02/2022 01/10/2015 - Improved - Lolly Oliveira MD - she will continue with Jd's manoever PRN and call if worsening/not lisa helping Not Available [facility] 3 04:02:04 Acute sinusitis Completed 201912/16/2020 Problem Code: J01.90; Problem Code Type: ICD-10; Not Available [facility] 3 04:02:05 Pain of right lower leg Completed 202101/11/2022 Problem Code: M79.661; Problem Code Type: ICD-10; Not Available [facility] 3 04:02:06 Hyperlipidemi a Completed 200910/19/2017 Not Available [facility] 3 04:02:07 Dizziness and giddiness Completed 201408/14/2019 Problem Code: R42; Problem Code Type: ICD-10; Not Available [facility] 3 04:02:07 Hypertensive disorder Completed 201011/03/2018 Not Available [facility] 3 04:02:09 Diarrhea Completed 201610/19/2017 Problem Code: R19.7; Problem Code Type: ICD-10; Not Available [facility] 3 04:02:10 Anemia Completed 201901/11/2022 Problem Code: D64.9; Problem Code Type: ICD-10; Not Available [facility] 3 04:02:10 [place] - lesion Active 2022 Problem Code: L84; Problem Code Type: ICD-10; Not Available [facility] 4 05:37:51 Foot callus Active [address], [place] 4 11:29:32 Onychomycosis Active [address], [address] 4 11:29:44 Vertigo Active [address], [address] 4 13:20:57 Impacted cerumen of bilateral ears Active [address], [address] 4 13:21:03 Notes:*Problem Name: Colonos copy 2005 - Hyperplastic Polyp *ICD-10 Codes: *Problem Status: inactive *Comments: *Note Date: 04/29/2010 *Problem Name: Rt Breast Bx 2013 - Adenosis *ICD-10 Codes: *Problem Status: active *Comments: *Note Date: 08/01/2013 Problem Notes None recorded. Procedures Surgical History Date Name Laterality Status Provider Name and Address Organization Details Recorded Time 4 Cerumen Removal completed NATHAN HERNANDEZ Dr, [address] 09/01/2023 13:52:38 3 total replacement of right hip joint completed Cornelia juan, [facility] 03/31/2023 17:11:24 Imaging Results None recorded. Procedure Notes None recorded. Medical Equipment None Reported. Allergies Allergen ID Allergen Name Allergen Category Reaction Reaction Severity Criticality Documentation Date Start Date Code Code System Note Provider Name and Address Organization Details Recorded Time 94103 sulfadiaz ine medicatio n tachycard ia mild Not available 01/15/20232001 59324 RxNorm Tachy cardi a Not Available [facility] 3 16:22:29 Medications Name Sig Start [...] Updated DateTime 4 159.385 cm 38.7 kg/m2 20075.8 2 g 97.1 [degF] 17 /min 95 % 95 % 60 /min 139 mm[Hg] 69 mm[Hg] Vonda Fields RN [facility] 12:25:13 Social History Question Answer Notes LastModified by Organizat ion Details LastModified Time Tobacco Smoking Status Never Smoker Davey Allen MA null, [facility] 05/21/2023 10:57:21 Would You Say That, In General, Your Health Is Very Good [email or web address] Information not available 05/21/2023 How Often Does Anyone, Including Family, Physically Hurt You? Never [email or web address] Information not available 05/21/2023 How Often Does Anyone, Including Family, Insult Or Talk Down To You? Never Information no t available 05/21/2023 How Often Does Anyone, Including Family, Threaten You With Harm? Never [email or web address] Information not available 05/21/2023 How Often Does Anyone, Including Family, Scream Or Curse At You? Never [email or web address] Information not available 05/21/2023 Within The Past 12 Months, You Worried That Your Food Would Run Out Before You Got Money To Buy More. Never True [email or web address] Information n ot available 05/21/2023 Within The Past 12 Months, The Food You Bought Just Didn't Last And You Didn't Have Money To Get More. Never True Information n ot available 05/21/2023 How Hard Is It For You To Pay For The Very Basics Like Food, Housing, Medical Care, And Heating? Would You Say It Is: Not Hard At All [email or web address] Information not available 05/21/2023 In The Past 12 Months, Has Lack Of Reliable Transportation Kept You From Medical Appointments, Meetings, Work Or From Getting Things Needed For Daily Living? No [email or web address] Information not available 05/21/2023 What Is Your Housing Situation Today? I Have Housing. [email or web address] Information not available 05/21/2023 How Often In The Past Year Have You Used Marijuana (including Smoking, Vaping, Dabbing, Or Edibles)? Never [email or web address] Information not available 05/21/2023 How Often In The Past Year Have You Used Prescription Medications That Were Not Prescribed To You? Never Information n ot available 05/21/2023 How Often In The Past Year Have You Taken Your Own Prescription Medication More Than The Way It Was Prescribed Or For Different Reasons Than Its Intended Purpose? Never [email or web address] Information no t available 05/21/2023 How Often In The Past Year Have You Used Other Drugs (for Example, Heroin, Cocaine, Meth, Salvia, Inhalants)? Never Information not available 05/21/2023 Have You Ever Used IV Drugs? No [email or web address] Information not available 05/21/2023 What Matters Most To You? Staying Healthy, Keeping Active. Getting Exercise And Losing Some Weight [email or web address] Information not available 05/21/2023 During The Past Four Weeks Has Your Physical And Emotional Health Limited Your Social Activities With Family And Friends, Neighbors, Or Groups? Not At All [email or web address] Information not available 05/21/2023 During The Past Four Weeks, Was Someone Available To Help You If You Needed And Wanted Help? (For Example, If You [place] Very Nervous, Lonely, Or Blue; Got Sick And Had To Stay In Bed; Needed Someone To Talk To; Needed Help With Daily Chores; Or Needed Help Just Taking Care Of Yourself.) No- Not At All Information n ot available 05/21/2023 During The Past Four Weeks, What Was The Hardest Physical Activity You Could Do For At Least 2 Minutes? Moderate [email or web address] Information not available 05/21/2023 Can You Get To Places Out Of Walking Distance Without Help? (For Example, Can You Travel Alone On Buses Or Taxis, Or Drive Your Own Car?) Yes [email or web address] Information not available 05/21/2023 Can You Go Shopping For Groceries Or Clothes Without Someone? s Help? Yes [email or web address] Information not available 05/21/2023 Can You Prepare Your Own Meals? Yes [email or web address] Information not available 05/21/2023 Can You Do Your Housework Without Help? Yes [email or web address] Information not available 05/21/2023 Because Of Any Health Problems, Do You Need The Help Of Another Person With Your Personal Care Needs Such As Eating, Bathing, Dressing, Or Getting Around The House? No [email or web address] Information not available 05/21/2023 Can You Handle Your Own Money Without Help? Yes [email or web address] Information not available 05/21/2023 Are You Having Difficulties Driving Your Car? No Information no t available 05/21/2023 Do You Always Fasten Your Seat Belt When You Are In A Car? Yes- Usually [email or web address] Information not available 05/21/2023 How Often During The Past Four Weeks Have You Been Bothered By Any Of The Following Problems? Falling Or Dizzy When Standing Up? Never [email or web address] Information not available 05/21/2023 Sexual Problems? Never [email or web address] Informat ion not available 05/21/2023 Trouble Eating Well? Sometimes [email or web address] Information not available 05/21/2023 Teeth Or Denture Problems? Sometimes [email or web address] Information not available 05/21/2023 Problems Using The Telephone? Never [email or web address] Information not available 05/21/2023 Tiredness Or Fatigue? Sometimes [email or web address] Information not available 05/21/2023 Have You Had 2 Or More Falls Or Sustained An Injury With A Fall In The Last Year? No [email or web address] Information no t available 05/21/2023 Do You Have Difficulty With Walking Or Balance? No [email or web address] Information not available 05/21/2023 Do You Currently Use A Hearing Device? No [email or web address] Information not available 05/21/2023 Do You Currently Have Any Trouble With Your Vision? Yes [email or web address] Information no t available 05/21/2023 Do You Exercise For About 20 Minutes Three Or More Days A Week? Yes- Most Of The Time [email or web address] Information not available 05/21/2023 Are There Any Safety Concerns In Your Home (see Attached CDC Pamphlet)? No [email or web address] Information not available 05/21/2023 How Often Do You Have Trouble Taking Medicines The Way You Have Been Told To Take Them? I Always Take Them As Prescribed Information not available 05/21/2023 How Confident Are You That You Can Control And Manage Most Of Your Health Problems? Very Confident [email or web address] Information not available 05/21/2023 Do You Currently Have Any Difficulty With Your Hearing? No [email or web address] Information not available 05/21/2023 Date Of Most Recent SBINS 05/21/2023 [email or web address] Information not available 05/21/2023 What Was The Date Of Your Most Recent Tobacco Screening? 09/01/2023 Information not available 09/01/2023 Has Tobacco Cessation Counseling Been Provided? Yes Information not available 09/01/2023 On What Date Was Tobacco Cessation Counseling Provided? 09/01/2023 Information not available 09/01/2023 Do You Or Have You Ever Used Any Other Forms Of Tobacco Or Nicotine? No [email or web address] Information not available 05/21/2023 Sex: Female Functional [...] preservative free, adsorbed 11/03/2018 completed Not Available [facility] 01/15/2023 04:53:39 Tdap 04/12/2007 completed Not Available [facility] 04:53:39 zoster live 06/16/2012 completed Not Available [facility] 01/15/2023 04:53:40 Pneumococcal conjugate PCV 13 09/17/2015 completed Not Available [facility] 01/15/2023 04:53:40 Influenza, high-dose, trivalent, PF 11/26/2017 completed Not Available [facility] 01/15/2023 04:53:41 Td(adult) unspecified formulation 09/30/1992 completed Not Available [facility] 01/15/2023 04:53:41 Influenza, split virus, trivalent, preservative 11/28/2015 completed Not Available [facility] 01/15/2023 04:53:41 Influenza, split virus, trivalent, preservative 01/04/2015 completed Not Available [facility] 01/15/2023 04:53:41 Influenza, split virus, quadrivalent, PF 12/21/2018 completed Not Available [facility] 01/15/2023 04:53:41 zoster recombinant 08/30/2018 completed Not Available [facility] 01/15/2023 04:53:42 zoster recombinant 01/26/2018 completed Not Available [facility] 01/15/2023 04:53:42 Influenza, high-dose, quadrivalent, PF 12/04/2020 completed Not Available [facility] 01/15/2023 04:53:43 Influenza, high-dose, quadrivalent, PF 12/11/2019 completed Not Available [facility] 01/15/2023 04:53:43 Influenza, high-dose, quadrivalent, PF 12/29/2021 completed Not Available [facility] 01/15/2023 04:53:43 COVID-19, mRNA, LNP-S, PF, 100 mcg/0.5mL dose or 50 mcg/0.25mL dose 07/09/2021 completed Not Available [facility] 01/15/2023 04:53:43 COVID-19 vaccine, vector-nr, [id number], PF, 0.5 mL 05/02/2020 completed Not Available [facility] 01/15/2023 04:53:44 SARS-COV-2 (COVID-19) vaccine, UNSPECIFIED 05/31/2020 completed Not Available [facility] 01/15/2023 04:53:44 SARS-COV-2 (COVID-19) vaccine, UNSPECIFIED 01/03/2021 completed Not Available [facility] 01/15/2023 04:53:44 pneumococcal polysaccharide PPV23 07/05/2014 completed Not Available [facility] 2022 04:53:45 Hep B, unspecified formulation 04/14/1993 completed Not Available [facility] 01/15/2023 04:53:45 Hep B, unspecified formulation 09/30/1992 completed Not Available [facility] 01/15/2023 04:53:46 Hep B, unspecified formulation 10/31/1992 completed Not Available [facility] 01/15/2023 04:53:46 influenza, unspecified formulation 12/11/2009 completed Not Available [facility] 01/15/2023 04:53:47 influenza, unspecified formulation 12/13/2012 completed Not Available [facility] 01/15/2023 04:53:47 influenza, unspecified formulation 12/18/2008 completed Not Available [facility] 01/15/2023 04:53:47 influenza, unspecified formulation 12/19/2010 completed Not Available [facility] 01/15/2023 04:53:47 influenza, unspecified formulation 12/30/2006 completed Not Available [facility] 01/15/2023 04:53:48 influenza, unspecified formulation 01/09/2014 completed Not Available [facility] 01/15/2023 04:53:48 influenza, unspecified formulation 01/26/2008 completed Not Available [facility] 01/15/2023 04:53:48 influenza, unspecified formulation 02/16/2012 completed Not Available [facility] 01/15/2023 04:53:48 Influenza, high-dose, quadrivalent, PF 12/17/2022 completed Not Available [facility] 03/19/2023 05:33:03 COVID-19, mRNA, LNP-S, PF, herminio-sucrose, 30 mcg/0.3 mL 12/28/2022 completed Not Available [facility] 03/19/2023 05:33:03 Past Encounters Encounter ID Performer Location Encounter Start Date Encounter Closed Date Diagnosis/Indication Diagnosis SNOMED-CT Code [id number] [address] [place] [address] 09/01/2023 10:23:16 09/01/2023 13:28:10 Vertigo [id number] Impacted c erumen of bilateral ears [id number] Health Concerns Section Related Observation LastModified by Organization Detai ls LastModified Time None Recorded Concern Status LastModified by Organization Details LastModified Time None Recorded Payers Encounter Date Sequence Insurance Name Policy Number Policy Lema Covered Member ID Lema Member ID Guarantor Name 09/01/2023 1 [id number]ANT[place] - [place]PO) [id number] Luna Mott [id number] Luna Mott Notes Date Note Type Note Provider Name [...] the name of it. [address], [place], [address], [facility]. 09/01/2023 13:55:07 OBGyn Episode No OBEpisode recorded.
--- OUTSIDE RECORDS SUMMARY | 2023-10-20 11:51 | XMS_ITS | Encounter Summary ---
Author Organization [facility] Address [address] [place] [address] Care Team Providers Care Pt Sitter Name Role Phone Lolly Oliveira MD Primary Care Provider [phone] Encounter Details Date Type Department Care Team (Late st Contact Info) Description 11/13/2020 Lab Requisition [facility] Pathology & Laboratory Medicine - [address] [id number] Outr Resulting Lab, Provider Social History Tobacco [...] Outr Resulting Lab MICROBIOLOGY - GENERAL ORDERABLES [facility] [address] [place] [address] * COVID-19 TESTING (11/13/2020 7:30 EDT) COVID-19 rt-PCR Result Negative Negative 11/14/2020 11:46 EDT [facility] Comment: This test has [...] performed using the med SARS-CoV-2 assay ([employer] on the Med 6800 System Performing Lab Med 6800 [employer] Lab 11/14/2020 11:46 EDT [facility] Swab 11/13/2020 7:30 EDT 11/13/2020 20:57 EDT Provider Outr Resulting Lab MICROBIOLOGY - GENERAL ORDERABLES [facility] [address] [place] [address] documented in this encounter Visit Diagnoses Not on filedocumented in this encounter Care Teams Pt Sitter Relationship Specialty Start Date End Date Lolly Oliveira MD [address] [place] [address] PCP - General 11/13/08 documented as of this encounter
--- OUTSIDE RECORDS SUMMARY | 2023-10-20 11:51 | XMS_ITS | Encounter Summary ---
Author Organization [facility] [place] [address] Care Team Providers Care Field Service Engineer Name Role Phone Lolly Oliveira MD Primary Care Provider [phone] Encounter Details Date Type Department Care Team (Late st Contact Info) Description 03/15/2023 Telephone Cardiology at [address] [phone] Saranya Ma Social History Tobacco Use Types Packs/Day Years Used Date Smoking Tobacco: Never Alcohol Use Standard Drinks/Week Comments Not Currently 0 (1 standard drink = 0.6 oz pur e alcohol) [facility] Inpatient Questions Answer Date Recorded Does Anyone [...] her to have an echo done at [facility] prior to her appt withtnm there on 05/12/23. Message sent to Dr. Mcmahon asking him to put order in if he would like her to have this done. Saranya Ma Sr. Clinical Procedure [place]/[facility] documented in this encounter Plan of Treatment Upcoming Encounters Date Type Department Care Team (Late st Contact Info) Description 01/16/2024 10:00 AM EST Hospital Encounter Non-Invasive [place] [address] Arrived documented as of this encounter Visit Diagnoses Not on filedocumented in this encounter Care Teams Field Service Engineer Relationship Specialty Start Date End Date Lolly Oliveira MD [address] [place] [address] PCP - General 07/17/13 documented as of this encounter
--- OUTSIDE RECORDS SUMMARY | 2023-10-20 11:51 | XMS_ITS | Encounter Summary ---
Author Organization [facility] [place] [address] Care Team Providers Care Life Enrichment Director Name Role Phone Lolly Oliveira MD Primary Care Provider [phone] Encounter Details Date Type Department Care Team (Late st Contact Info) Description 05/18/2023 Refill Dermatology at [address] [phone] Nora Meredith LPN Social History [...] patient. She voiced understanding. Order sent to [facility]. documented in this encounter Plan of Treatment Upcoming Encounters Date Type Department Care Team (Late st Contact Info) Description 01/16/2024 10:00 AM EST Hospital Encounter Non-Invasive [place] [address] Arrived documented as of this encounter Visit Diagnoses Not on filedocumented in this encounter Care Teams Life Enrichment Director Relationship Specialty Start Date End Date Lolly Oliveira MD [address] [place] [address] PCP - General 07/17/13 documented as of this encounter
--- OUTSIDE RECORDS SUMMARY | 2023-10-20 11:51 | XMS_ITS | Encounter Summary ---
Author Organization [facility] Address [address] [place] [address] Care Team Providers Care Manager Utilization Name Role Phone Lolly Oliveira MD Primary Care Provider [phone] Encounter Details Date Type Department Care Team (Late st Contact Info) Description 02/20/2020 Lab Requisition [facility] Pathology & Laboratory Medicine - [address] [phone] Outr Resulting Lab, Provider Social History Tobacco [...] in accordance with CLIA regulations, [employer] (CAP) guidelines (May 25, 2019), and FDA guidance (May 06, 2019). This test is only for use under the Food and Drug Administration's Emergency Use Authorization. Swab ENTIRE NASOPHARYNX / Unknown 02/19/2020 16:30 EST 02/20/2020 16:09 EST Provider Outr Resulting Lab MICROBIOLOGY - GENERAL ORDERABLES [facility] [place], [place] * COVID-19 TESTING (02/19/2020 16:30 EST) COVID-19 rt-PCR Result NEGATIVE Negative 02/22/2020 23:41 EST [facility] Comment: 2019-novel Coronavirus (2019-nCoV) not detected [...] in accordance with CLIA regulations, [employer] [place] (CAP) guidelines (May 25, 2019), and FDA guidance (May 06, 2019). This test is only for use under the Food and Drug Administration's Emergency Use Authorization. Performing Lab [facility] 02/22/2020 23:41 EST [facility] Swab 02/19/2020 16:3 0 EST 02/20/2020 16:09 EST Provider Outr Resulting Lab MICROBIOLOGY - GENERAL ORDERABLES [facility] [address] [place] [address] [facility] [place] [place] documented in this encounter Visit Diagnoses Not on filedocumented in this encounter Care Teams Manager Utilization Relationship Specialty Start Date End Date Lolly Oliveira MD [address] [place] [address] PCP - General 11/13/08 documented as of this encounter
--- OUTSIDE RECORDS SUMMARY | 2023-10-20 11:51 | XMS_ITS | Data Portability ---
Author Organization [facility], [facility] [place] [address] Care Team Providers Care Wholesale Representative Name Role Phone [facility] OFF[facility] Optometris t ZAMZAM BOSS Travel Nurse JAYCOB MARTINEZ Orthopedic Surgeon ROXANA KELLEY Photography Teacher FLOWER RAMSEY Dentist Assessment Encounter Date Assessment [...] copy of PPP at conclusion of visit. [email or web address] Not available 04/20/2023 07:44:20 Plan of Treatment Reminders Order Date Submit Date Provider Last Modified By Organization Details Last Modified Time Details Appointments Follow Up 2023 07:30A M Not available Not available Not available Lab None recorded. Referral podiatris t referral 2023 024 [email or web address] [facility], [address] [place] [address] , [place], [address], 09/24/2023 13:45:43 physical therapist referral 2023 024 Chinedu Amato PT, [address], [place], [address], 10/18/2023 12:01:58 Procedures None recorded. Surgeries None recorded. Imaging None recorded. Medication Orders Jardiance 10 mg tablet 2023 024 [facility], [address] [place] [address], [address], 05/24/2023 18:32:26 lisinopri l 20 mg tablet 2023 024 [facility], [address] [place] [address], [address], 05/24/2023 18:32:26 meclizine 25 mg tablet 2023 024 [facility], [address] [place] [address], [address], 09/01/2023 13:22:14 Patient TargetsNo targets recorded. Patient Instructions Encounter Date Encounter Id Patient Instructions Last Modified By Organization Details Last Modified Time 05/21/2023 [id number] Discussed and explained advance directives such as standard forms to the {{patient caregiv er patient and caregiver}}. Face to face discussion lasted for a duration of ___ minutes. [email or web address] Not available 04/20/2023 07:44:20 09/01/2023 [id number] 1. The earwax from your ears were [...] Not available 09/01/2023 13:23:33 Reason for Referral Life Consultant Referral for Onyc homycosis onychomycosis, calluses Referring Physician: Ju Cortez, [facility] Medicine, Encounter Date: 05/21/2023 Physical Therapist Referral for Vertigo Referring Physician: Jessica Wallis, [facility] Medicine, Encounter Date: 09/01/2023 Results Created Date Observation Date Name Description Value Unit Range Abnormal Flag LastModifiedBy Organization Detail LastModifiedTime 05/03/1905/03/2023 ultra sound imagi ng repor t Ashley t Name: Naomi Mott Unit #: [id number] Loc: DI Orderi ng Provid er: Lalit Mcmahon M.D. Accoun t #: [id number] Status : REG CLI Primar y Care Provid er: Janice Pérez M.D. 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 There is normal LV segmen gabibe wall motion . There is no ventri [...] the addres s above. Thank- you. rod [address] [place], [address] 05/03/2023 18:12:07 05/13/1905/13/2023 josh robertson am EKG ASHLEY T NAME: Naomi Mott UNIT #: [id number] ORDERRadha GARZA ER: Lalit Mcmahon M.D. ACCOUN T #: [id number] PRIMAR Y CARE PROVID ER: JUSTYN Suresh MD, JU DATE/T DONNA OF SE RVICE: 1252 : 1950 KELSI MOYER LOCATI ON: DI.CAR D ------ ------ --- APPROV [...] ------ - E-Sign Date: E-Sign Time: [address] [place], [address] 09/13/2023 15:45:54 06/28/19 24 01/12/2023 x-ray imagi raul Saab t Name: Naomi Mott Unit #: [id number] Loc: ALIZA Orderi ng Provid er: Karan Freire M.D. Accoun t #: [id number] Status : DEP [facility] Primar y Care Provid er: Janice Pérez [...] Dictat ed By: Ulises Hurst M.D. 1401 140 Transc ribed By: Aris MENDOZA,Marcia murrell 140 This is privil eged, confid ential inform ation intend ed only for the provid er named. Any use or distri bution by any person other than this provid er is strict ly prohib ited. If you receiv e this report in error, please notify us immkrupa stapleton at [phone] and return the origin al report to us at the addres s above. Thank- you. rod [facility] [address], [place], [address] 06/29/2023 07:24:17 Result Notes None recorded. Problems [...] L98.9; Problem Code Type: ICD-10; Not Available [facility] 3 04:01:52 Pain in right hip joint Completed 201512/02/2022 Problem Code: M25.551; Problem Code Type: ICD-10; Not Available [facility] 3 04:01:52 Onychomycosis due to dermatophyte Active 201609/22/2016 - Comments only - Ju Cortez MD - she is going to contact podiatry to find out if they have any other topical txs that might work. She is not interested in systemic tx Problem Code: B35.1; Problem Code Type: ICD-10; Not Available [facility] 3 04:01:52 Hearing loss of right ear Completed 201712/10/2017 11/26/2017 - Comments only - Naseem Gil PA-C - Ceruminosis treated in-office today. If hearing fails to be fully restored over the course of the weekend, will consider for ENT refer for formal audiology assessment. Problem Code: H91.91; Problem Code Type: ICD-10; Not Available [facility] 3 04:01:52 Abnormal weight gain Active 2018 Problem Code: R63.5; Problem Code Type: ICD-10; Not Available [facility] 3 04:01:53 Disorder of hip joint Active 201801/11/2022 - Comments only - Ju Cortez MD - ,rt. For which she would like a total hip replacement. 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 She is trying to continue being as mobile as she can comfortably. Problem Code: M12.859; Problem Code Type: ICD-10; Not Available [facility] 3 04:01:53 Acute vaginitis Completed 201801/04/2019 12/21/2018 - Comments only - Naseem Gil PA-C - Will await resutls of today's collected VPS to determine indication for further treatment. Problem Code: N76.0; Problem Code Type: ICD-10; Not Available [facility] 3 04:01:53 Intertrigo Completed 201801/04/2019 12/21/2018 - Comments only - Naseem Gil PA-C - Patient encouraged to keep skin folds as clean and dry as possible to avoid reactivation (suggested biology department chair after bathing). Additionally, could consider to use OTC DESITIN for acute skin healing. Problem Code: L30.4; Problem Code Type: ICD-10; Not Available [facility] 3 04:01:53 Pre-surgery evaluation Completed 201801/23/2019 01/09/2019 - Comments only - Naseem Gil PA-C - Today's EKG shows stable LBBB (compared to study 10/19/14) with NSR at 69bpm. Patient to f/u for pre-operative laboratory testing and anesthesia consult as scheduled 01/17/19. Problem Code: Z01.818; Problem Code Type: ICD-10; Not Available [facility] 3 04:01:53 Hip joint prosthesis present Active 2018 Problem Code: Z96.642; Problem Code Type: ICD-10; Not Available [facility] 3 04:01:53 Dyspnea Completed 201903/27/2019 03/13/2019 - [...] R06.02; Problem Code Type: ICD-10; Not Available [facility] 3 04:01:54 Edema Completed 201906/21/2019 06/07/2019 - [...] L40.4; Problem Code Type: ICD-10; Not Available [facility] 3 04:01:54 Stool finding Active 2021 Problem Code: R19.5; Problem Code Type: ICD-10; Not Available [facility] 3 04:01:54 Specialized medical examination Active 2021 Problem Code: Z01.89; Problem Code Type: ICD-10; Not Available [facility] 3 04:01:54 Edema Active 2021 Problem Code: R60.9; Problem Code Type: ICD-10; Not Available [facility] 3 04:01:55 Screening mammography Active 2021 Problem Code: Z12.31; Problem Code Type: ICD-10; Not Available [facility] 3 04:01:55 Abnormal finding on evaluation procedure Active 2021 Problem Code: R89.9; Problem Code Type: ICD-10; Not Available [facility] 3 04:01:55 Dyspnea Active 2021 Problem Code: R06.02; Problem Code Type: ICD-10; Not Available [facility] 3 04:01:55 Cardiomyopath y Active 202109/04/2022 - Comments only - Ju Cortez MD - Clinically remaining stable on the lisinopril, furosemide 20 mg daily, Jardiance, Toprol, rosuvastatin, aspirin. ICD/pacemaker in place. Following with cardiology. She is walking/exerc ising regularly. Problem Code: I42.9; Problem Code Type: ICD-10; Not Available [facility] 3 04:01:55 Heart failure Active 2021 Problem [...] DEXA scan. Ordered. She does take an hxac-jfu-kvvn ter vitamin D supplement I believe. Problem [...] J01.90; Problem Code Type: ICD-10; Not Available [facility] 3 04:02:05 Pain of right lower leg Completed 202101/11/2022 Problem Code: M79.661; Problem Code Type: ICD-10; Not Available [facility] 3 04:02:06 Hyperlipidemi a Completed 200910/19/2017 Not Available [facility] 3 04:02:07 Dizziness and giddiness Completed 201408/14/2019 Problem Code: R42; Problem Code Type: ICD-10; Not Available [facility] 3 04:02:07 Hypertensive disorder Completed 201011/03/2018 Not Available [facility] 3 04:02:09 Diarrhea Completed 201610/19/2017 Problem Code: R19.7; Problem Code Type: ICD-10; Not Available [facility] 3 04:02:10 Anemia Completed 201901/11/2022 Problem Code: D64.9; Problem Code Type: ICD-10; Not Available [facility] 3 04:02:10 Stanton - lesion Active 2022 Problem Code: L84; Problem Code Type: ICD-10; Not Available [facility] 4 05:37:51 Foot callus Active [address], [place], [address] , [facility]. 4 11:29:32 Onychomycosis Active [address], [place], [address] , [facility]. 4 11:29:44 Vertigo Active [address], [place], [address] , [facility]. 4 13:20:57 Impacted cerumen of bilateral ears Active [address], [place], [address] , [facility] 4 13:21:03 Notes:*Problem Name: Colonos copy 2005 - Hyperplastic Polyp *ICD-10 Codes: *Problem Status: inactive *Comments: *Note Date: 04/29/2010 *Problem Name: Rt Breast Bx 2013 - Adenosis *ICD-10 Codes: *Problem Status: active *Comments: *Note Date: 08/01/2013 Problem Notes None recorded. Procedures Surgical History Date Name Laterality Status Provider Name and Address Organization Details Recorded Time 4 Cerumen Removal completed [address], [place], [address] 09/01/2023 13:52:38 3 total replacement of right hip joint [facility]/31[facility]2023 17:11:24 Imaging Results Imaging Date Name Status LastModified by Organization Details LastModified Time 05/03/2023 ultrasound imaging report completed [address] [place], [address] 05/03/2023 18:12:07 05/13/2023 electrocardiogram completed [address] [place], [address] 09/13/2023 15:45:54 01/12/2023 x-ray imaging report completed [address] [facility] [place], [address] 06/29/2023 07:24:17 Procedure Notes None recorded. Medical Equipment None Reported. Allergies Allergen ID Allergen Name Allergen Category Reaction Reaction Severity Criticality Documentation Date Start Date Code Code System Note Provider Name and Address Organization Details Recorded Time 12521 sulfadiaz ine medicatio n tachycard ia mild Not available 01/15/20232001 59306 RxNorm Tachy cardi a Not Available [facility] 3 16:22:29 Medications Name Sig Start Date [...] % 96 % 65 /min 38.7 kg/m2 93409.8 3 g 128 mm[Hg] 72 mm[Hg] Davey Allen MA [facility] 4 10:27:29 Date Recorded Body height Body mass index (BMI) Body weight Body temperature Respiratory rate Oxygen saturation Oxygen saturation in Arterial blood by Pulse oximetry Heart rate Systolic blood pressure Diastolic blood pressure Provider Name and Address Organization Details Last Updated DateTime 4 159.385 cm 38.7 kg/m2 58783.8 2 g 97.1 [degF] 17 /min 95 % 95 % 60 /min 139 mm[Hg] 69 mm[Hg] Vonda Fields RN [facility] 4 12:25:13 Social History Question Answer Notes LastModified by Organizat ion Details LastModified Time Tobacco Smoking Status Never Smoker Davey Allen MA null, [facility] 05/21/2023 10:57:21 Would You Say That, In General, Your Health Is Very Good [email or web address] Information not available 05/21/2023 How Often Does Anyone, Including Family, Physically Hurt You? Never [email or web address] Information not available 05/21/2023 How Often Does Anyone, Including Family, Insult Or Talk Down To You? Never [email or web address] Information no t available 05/21/2023 How Often Does Anyone, Including Family, Threaten You With Harm? Never [email or web address] Information not available 05/21/2023 How Often Does Anyone, Including Family, Scream Or Curse At You? Never [email or web address] Information not available 05/21/2023 Within The Past 12 Months, You Worried That Your Food Would Run Out Before You Got Money To Buy More. Never True [email or web address] Information n ot available 05/21/2023 Within The Past 12 Months, The Food You Bought Just Didn't Last And You Didn't Have Money To Get More. Never True [email or web address] Information n ot available 05/21/2023 How Hard Is It For You To Pay For The Very Basics Like Food, Housing, Medical Care, And Heating? Would You Say It Is: Not Hard At All [email or web address] Information not available 05/21/2023 In The Past 12 Months, Has Lack Of Reliable Transportation Kept You From Medical Appointments, Meetings, Work Or From Getting Things Needed For Daily Living? No [email or web address] Information not available 05/21/2023 What Is Your Housing Situation Today? I Have Housing. [email or web address] Information not available 05/21/2023 How Often In The Past Year Have You Used Marijuana (including Smoking, Vaping, Dabbing, Or Edibles)? Never [email or web address] Information not available 05/21/2023 How Often In The Past Year Have You Used Prescription Medications That Were Not Prescribed To You? Never fhnvvipt43 Information n ot available 05/21/2023 How Often In The Past Year Have You Taken Your Own Prescription Medication More Than The Way It Was Prescribed Or For Different Reasons Than Its Intended Purpose? Never [email or web address] Information no t available 05/21/2023 How Often In The Past Year Have You Used Other Drugs (for Example, Heroin, Cocaine, Meth, Salvia, Inhalants)? Never Information not available 05/21/2023 Have You Ever Used IV Drugs? No [email or web address] Information not available 05/21/2023 What Matters Most To You? Staying Healthy, Keeping Active. Getting Exercise And Losing Some Weight [email or web address] Information not available 05/21/2023 During The Past Four Weeks Has Your Physical And Emotional Health Limited Your Social Activities With Family And Friends, Neighbors, Or Groups? Not At All [email or web address] Information not available 05/21/2023 During The Past Four Weeks, Was Someone Available To Help You If You Needed And Wanted Help? (For Example, If You [place] Very Nervous, Lonely, Or Blue; Got Sick And Had To Stay In Bed; Needed Someone To Talk To; Needed Help With Daily Chores; Or Needed Help Just Taking Care Of Yourself.) No- Not At All [email or web address] Information n ot available 05/21/2023 During The Past Four Weeks, What Was The Hardest Physical Activity You Could Do For At Least 2 Minutes? Moderate [email or web address] Information not available 05/21/2023 Can You Get To Places Out Of Walking Distance Without Help? (For Example, Can You Travel Alone On Buses Or Taxis, Or Drive Your Own Car?) Yes [email or web address] Information not available 05/21/2023 Can You Go Shopping For Groceries Or Clothes Without Someone? s Help? Yes [email or web address] Information not available 05/21/2023 Can You Prepare Your Own Meals? Yes [email or web address] Information not available 05/21/2023 Can You Do Your Housework Without Help? Yes [email or web address] Information not available 05/21/2023 Because Of Any Health Problems, Do You Need The Help Of Another Person With Your Personal Care Needs Such As Eating, Bathing, Dressing, Or Getting Around The House? No [email or web address] Information not available 05/21/2023 Can You Handle Your Own Money Without Help? Yes [email or web address] Information not available 05/21/2023 Are You Having Difficulties Driving Your Car? No [email or web address] Information no t available 05/21/2023 Do You Always Fasten Your Seat Belt When You Are In A Car? Yes- Usually [email or web address] Information not available 05/21/2023 How Often During The Past Four Weeks Have You Been Bothered By Any Of The Following Problems? Falling Or Dizzy When Standing Up? Never [email or web address] Information not available 05/21/2023 Sexual Problems? Never [email or web address] Informat ion not available 05/21/2023 Trouble Eating Well? Sometimes Information not available 05/21/2023 Teeth Or Denture Problems? Sometimes [email or web address] Information not available 05/21/2023 Problems Using The Telephone? Never Information not available 05/21/2023 Tiredness Or Fatigue? Sometimes [email or web address] Information not available 05/21/2023 Have You Had 2 Or More Falls Or Sustained An Injury With A Fall In The Last Year? No [email or web address] Information no t available 05/21/2023 Do You Have Difficulty With Walking Or Balance? No [email or web address] Information not available 05/21/2023 Do You Currently Use A Hearing Device? No [email or web address] Information not available 05/21/2023 Do You Currently Have Any Trouble With Your Vision? Yes [email or web address] Information no t available 05/21/2023 Do You Exercise For About 20 Minutes Three Or More Days A Week? Yes- Most Of The Time [email or web address] Information not available 05/21/2023 Are There Any Safety Concerns In Your Home (see Attached CDC Pamphlet)? No [email or web address] Information not available 05/21/2023 How Often Do You Have Trouble Taking Medicines The Way You Have Been Told To Take Them? I Always Take Them As Prescribed [email or web address] Information not available 05/21/2023 How Confident Are You That You Can Control And Manage Most Of Your Health Problems? Very Confident [email or web address] Information not available 05/21/2023 Do You Currently Have Any Difficulty With Your Hearing? No Information not available 05/21/2023 Date Of Most Recent SBINS 05/21/2023 [email or web address] Information not available 05/21/2023 What Was The Date Of Your Most Recent Tobacco Screening? 09/01/2023 Information not available 09/01/2023 Has Tobacco Cessation Counseling Been Provided? Yes Information not available 09/01/2023 On What Date Was Tobacco Cessation Counseling Provided? 09/01/2023 Information not available 09/01/2023 Do You Or Have You Ever Used Any Other Forms Of Tobacco Or Nicotine? No [email or web address] Information not available 05/21/2023 Sex: Female Functional [...] a brain bleed, ended up with a Winston filter. Brother - Agent orange exposure SISTER [...] high-dose, trivalent, PF 11/26/2017 completed Not Available [facility] 01/15/2023 04:53:41 Td(adult) unspecified formulation 09/30/1992 completed Not Available [facility] 01/15/2023 04:53:41 Influenza, split virus, trivalent, preservative 11/28/2015 completed Not Available [facility] 01/15/2023 04:53:41 Influenza, split virus, trivalent, preservative 01/04/2015 completed Not Available [facility] 01/15/2023 04:53:41 Influenza, split virus, quadrivalent, PF 12/21/2018 completed Not Available [facility] 01/15/2023 04:53:41 zoster recombinant 08/30/[address] [facility] 01/15/2023 04:53:42 zoster recombinant 01/26/[address] [facility] 01/15/2023 04:53:42 Influenza, high-dose, quadrivalent, PF 12/04/2020 completed Not Available [facility] 01/15/2023 04:53:43 Influenza, high-dose, quadrivalent, PF 12/11/2019 completed Not Available [facility] 01/15/2023 04:53:43 Influenza, high-dose, quadrivalent, PF 12/29/2021 completed Not Available [facility] 01/15/2023 04:53:43 COVID-19, mRNA, LNP-S, PF, 100 mcg/0.5mL dose or 50 mcg/0.25mL dose 07/09/2021 completed Not Available [facility] 01/15/2023 04:53:43 COVID-19 vaccine, vector-nr, rS-Ad26, PF, 0.5 mL 05/02/2020 completed Not Available [facility] 01/15/2023 04:53:44 SARS-COV-2 (COVID-19) vaccine, UNSPECIFIED 05/31/2020 completed Not Available [facility] 01/15/2023 04:53:44 SARS-COV-2 (COVID-19) vaccine, UNSPECIFIED 01/03/2021 completed Not Available [facility] 01/15/2023 04:53:44 pneumococcal polysaccharide PPV23 07/05/2014 completed Not Available [facility] 2022 04:53:45 Hep B, unspecified formulation 04/14/1993 completed Not Available [facility] 01/15/2023 04:53:45 Hep B, unspecified formulation 09/30/1992 completed Not Available [facility] 01/15/2023 04:53:46 Hep B, unspecified formulation 10/31/1992 completed Not Available [facility] 01/15/2023 04:53:46 influenza, unspecified formulation 12/11/2009 completed [...] 30 mcg/0.3 mL 12/28/2022 completed Not Available [facility] 03/19/2023 05:33:03 Past Encounters Encounter ID Performer Location Encounter Start Date Encounter Closed Date Diagnosis/Indication Diagnosis SNOMED-CT Code [id number] JU CORTEZ MD [address] [address] 05/21/2023 10:03:54 05/21/2023 11:37:49 Onychomycosis 247382805 Asthma 789029845 Cardiomyopathy 29890139 Disorder of hip joint 42 1932014 [place] psoriasis 162663 00 Hyperlipidemia 69687110 Vulval and /or perineal noninflammatory disorders 013915189 Adult [facility] th examination [id number] [address] [place] [address] 09/01/2023 10:23:16 09/01/2023 13:28:10 Vertigo 023145238 Impacted c erumen of bilateral ears 308430463926644 8 Health Concerns Section Related Observation LastModified by Organization Detai ls LastModified Time None Recorded Concern Status LastModified by Organization Details LastModified Time None Recorded Advance Directives Directive None Recorded Payers Encounter Date Sequence Insurance Name Policy Number Policy Lema Covered Member ID Lema Member ID Guarantor Name 05/21/2023 1 [place]ANT[place] - [place]PO) [id number] Luna Blandon Tiera [id number] Luna Blandon Tiera 09/01/2023 1 [place] - [place]PO) [id number] Luna Barber Mott [id number] Luna Mott Notes Date Note Type Note Provider Name and Address Organization Details Recorded Time 05/21/2023 text/html HPI Notes: Thais here today for an annual wellness exam JU CORTEZ MD [address], [place], [address], [facility]. 05/24/2023 18:32:35 09/01/2023 text/html HPI Notes: [...] the name of it. [address], [place], [address], [facility]. 09/01/2023 13:55:07 OBGyn Episode No OBEpisode recorded.
--- OUTSIDE RECORDS SUMMARY | 2023-10-20 11:51 | XMS_ITS | Encounter Summary ---
Author Organization [facility] Address [address] [place] [address] Care Team Providers Care Insulation Worker Apprentice Name Role Phone Lolly Oliveira MD Primary Care Provider [phone] Encounter Details Date Type Department Care Team (Late st Contact Info) Description 03/21/2019 Lab Requisition [facility] Pathology & Laboratory Medicine - [address] [address] Unknown, Provider, Social History Tobacco Use Types [...] 211 - 911 pg/mL 03/22/2019 11:52 EST [facility] Blood VENOUS BLOOD / Unknown 03/16/2019 9:25 EST 03/21/2019 21:35 EST Provider Unknown CHEMISTRY & BLOOD GA S ORDERABLES [facility] [address] [place] [address] documented in this encounter Visit Diagnoses Not on filedocumented in this encounter Care Teams Insulation Worker Apprentice Relationship Specialty Start Date End Date Lolly Oliveira MD [address] [place] [address] PCP - General 11/13/08 documented as of this encounter
--- OUTSIDE RECORDS SUMMARY | 2023-10-20 11:51 | XMS_ITS | Encounter Summary ---
Author Organization [facility] Address [facility] [place] [address] Care Team Providers Care Cement Mason Helper Name Role Phone Lolly Oliveira MD Primary Care Provider [phone] Encounter Details Date Type Department Care Team (Late st Contact Info) Description 05/03/2023 Telephone Cardiology at [address] [phone] Lalit Mcmahon MD [facility] [place] [address] Social History Tobacco Use Types Packs/Day Years Used Date Smoking Tobacco: Never Alcohol Use Standard Drinks/Week Comments Not Currently 0 (1 standard drink = 0.6 oz pur e alcohol) [facility] Inpatient Questions Answer Date Recorded Does [...] AM EST Hospital Encounter Non[place] [address] Arrived documented as of this encounter Visit Diagnoses Not on filedocumented in this encounter Care Teams Cement Mason Helper Relationship Specialty Start Date End Date Lolly Oliveira MD [address] [place] [address] PCP - General 07/17/13 documented as of this encounter
--- OUTSIDE RECORDS SUMMARY | 2023-10-20 11:51 | XMS_ITS | Encounter Summary ---
Author Organization [facility] Address [address] [place] [address] Care Team Providers Care Medical Director Of Hospice Name Role Phone Unavailable Primary Care Provider Unavailabl e Encounter Details Date Type Department Care Team (Late st Contact Info) Description 11/07/2008 Orders Only [facility] Laboratory Services - [facility] ([facility]) [address] [place] [address] Kenneth Parker MD [address] [place] [address] Social History Tobacco Use Types Packs/Day Years [...] ? LYLE, JING ? Accession #: ? [id number] ? : ? 1950 (Age: 58) ??F [...] Parker MD PATHOLOGY ORDERABLES Performing Organization Address City/State/[facility] Co de Phone Number [facility] [address] [place] [address] documented in this encounter Visit Diagnoses Not on filedocumented in this encounter
--- OUTSIDE RECORDS SUMMARY | 2023-10-20 11:51 | XMS_ITS | Encounter Summary ---
Author Organization [facility] [place] [address] Care Team Providers Care Utility Tractor Operator Name Role Phone Lolly Oliveira MD Primary Care Provider [phone] Encounter Details Date Type Department Care Team (Latest Contact Info) Description 04/21/2023 10:00 AM EST - 04/21/2023 11:59 PM EST Hospital Encounter Non-Invasive [place] [phone] Discharge Disposition: Home Social History Tobacco Use [...] with spacer fluticasone propionate (Flonase) 50 mcg/actuation [place], Suspension 1 spray by Each Nare route [...] AM EST Hospital Encounter Non-Invasive [place] [address] Arrived documented as of this [...] on filedocumented in this encounter Care Teams Utility Tractor Operator Relationship Specialty Start Date End Date Lolly Oliveira MD [address] [place] [address] PCP - General 07/17/13 documented as of this encounter
--- OUTSIDE RECORDS SUMMARY | 2023-10-20 11:51 | XMS_ITS | Encounter Summary ---
Author Organization [facility] Address [address] [place] [address] Care Team Providers Care Employment Agency Manager Name Role Phone Lolly Oliveira MD Primary Care Provider [phone] Encounter Details Date Type Department Care Team (Late st Contact Info) Description 05/27/2021 Lab Requisition [facility] Pathology & Laboratory Medicine - [address] [address] Iman Moran, DO [address] [facility] [address] [place], [place] [id number] Encounter for other general examination Social History [...] management options, if applicable. 05/30/2021 13:31 EDT [facility] Final Diagnosis A. COLON, POLYP AT 90 CM, BIOPSY/POLYPECTOM Y: - Tubular adenoma. 05/30/2021 13:31 [facility] Attestation By the signature below, the attending physician certifies that they have 1) personally conducted a gross and/or microscopic examination of the described specimen(s), and/or personally interpreted the results of laboratory testing of the described specimen(s), and 2) personally rendered or confirmed the above diagnosis. 05/30/2021 13:31 [facility] at 1331 Clinical History Severe diverticula and polypectomy x1 05/30/2021 13:31 [facility] Gross Description A. Received in formalin labelled with proper patient identification (initials J, K) and colon polyp x1 at 90 cm is a light pineda polypoid tissue measuring 0.2 x 0.2 x 0.2 cm. Submitted intact in A1. MICKEY CARLOS(ASCP) 05/27/2021 19:11 05/30/2021 13:31 [facility] Performing Lab [facility] 05/30/2021 13:31 [facility] Scanned Images 05/30/2021 13:31 [facility] Tissue ENTIRE COLON / Unknown 05/27/2021 11:23 EDT 05/27/2021 16:33 EDT Iman Moran DO PATHOLOGY ORDERABLES [facility] [address] [place] [address] documented in this encounter Visit Diagnoses Diagnosis Encounter for other general examination documented in this encounter Care Teams Employment Agency Manager Relationship Specialty Start Date End Date Lolly Oliveira MD [address] [place] [address] PCP - General 11/13/08 documented as of this encounter
--- OUTSIDE RECORDS SUMMARY | 2023-10-20 11:51 | XMS_ITS | Encounter Summary ---
Author Organization [facility] Address [address] [place] [address] Care Team Providers Care Director Print Name Role Phone Lolly Oliveira MD Primary Care Provider [phone] Encounter Details Date Type Department Care Team (Late st Contact Info) Description 05/02/2004 Results Only [facility] - Maple conversion [address] [place] [address] Lolly Oliveira MD [address] [place], [place] [id number] Social History Tobacco Use Types Packs/Day Years [...] 68. [facility] Report Status Final [id number] [facility] 05/02/2004 9:32 EST 05/10/2004 9:32 EST Lolly Oliveira MD MICROBIOLOGY - GENER AL ORDERABLES [facility] [address] [place] [address] * CYTOPATHOLOGY (05/02/2004 0:00 EST) Pathology Report: CYTOPATHOLOGY REPORT Reports generated via electronic interface contain original data; however they are lacking the format of the original report. Caution should be taken when reading/interpreti ng unformatted reports. Name: ? JING ALVARENGA ? Accession #: ? [id number] : ? 1950 (Age: 53) ??F ?Collect [...] Oliveira MD PATHOLOGY ORDERABLES Performing Organization Address City/State/[facility] Co de Phone Number [facility] [address] [place] [address] documented in this encounter Visit Diagnoses Not on filedocumented in this encounter Care Teams Director Print Relationship Specialty Start Date End Date Lolly Oliveira MD [address] [place] [address] PCP - General 11/13/08 documented as of this encounter
--- OUTSIDE RECORDS SUMMARY | 2023-10-20 11:51 | XMS_ITS | Encounter Summary ---
Author Organization [facility] Address [address] [place] [address] Care Team Providers Care Screening Representative Name Role Phone Lolly Oliveira MD Primary Care Provider [phone] Encounter Details Date Type Department Care Team (Late st Contact Info) Description 02/11/2021 Lab Requisition [facility] Pathology & Laboratory Medicine - [address] [address] Outr Resulting Lab, Provider Social History Tobacco [...] Lab MICROBIOLOGY - GENERAL ORDERABLES [facility] [address] [place] [address] * COVID-19 TESTING (02/11/2021 8:00 EST) COVID-19 rt-PCR Result Negative Negative 02/12/2021 14:17 EST [facility] Comment: This test has [...] was performed using the med SARS-CoV-2 assay ([employer] on the Med 6800 System Performing Lab Med [address] [facility] Lab 02/12/2021 14:17 EST [facility] Swab 02/11/2021 8:00 EST 02/11/2021 22:22 EST Provider Outr Resulting Lab MICROBIOLOGY - GENERAL ORDERABLES [facility] [address] [place] [address] documented in this encounter Visit Diagnoses Not on filedocumented in this encounter Care Teams Screening Representative Relationship Specialty Start Date End Date Lolly Oliveira MD [address] [place] [address] PCP - General 11/13/08 documented as of this encounter
--- OUTSIDE RECORDS SUMMARY | 2023-10-20 11:51 | XMS_ITS | Clinical Summary ---
Author Organization [facility] [place] [address] Care Team Providers Care Fitness Trainer Name Role Phone Lolly Oliveira MD Primary Care Provider [phone] Allergies Active Allergy Reactions Criticality Noted Date [...] spacer Active fluticasone propionate (Flonase) 50 mcg/actuation [place], Suspension 1 spray by Each Nare route [...] Encounters Date Type Department Care Team Description 10/18/2023 10:00 AM EDT - 10/18/2023 11:59 PM EDT Hospital Encounter [place] [address] Arrived Discharge Disposition: Home 07/20/2023 10:00 AM EDT - 07/20/2023 11:59 PM EDT Hospital Encounter [place] [address] Discharge Disposition: Home from Last 3 Months Social History Tobacco [...] AM EST Hospital Encounter [place] [address] Arrived Health Maintenance Due Date Last Done [...] of 1 - PCV) 2013 Covid-19 Vaccine (1 - 2022-24 season) 2022 Influenza (Flu) vaccine (1 o f 1 - Influenza standard series) 11/07/2023 Medical Devices Implanted Type Area Parking Lot Supervisor Device Identifier Shelf Expiration Date Model / Serial / Lot Bsx: [id number]: [id number]/18/2 023 Implanted: by Lalit Mcmahon MD (Quantity not on file) Defibrillator Chest Wall [employer] [id number] / [id number] / Bsx: 4674: 022989-6/18/2 023 Implanted: by Lalit Mcmahon MD (Quantity not on file) Lead Heart [employer] 4674 / [id number] / Bsx: [id number]: [id number] Implanted: by Lalit Mcmahon MD (Quantity not on file) Lead Heart [employer] 7841 / [id number] / Bsx: 0672: 606872-9/18/2 023 Implanted: by Lalit Mcmahon MD (Quantity not on file) Lead Heart [employer] 0672 / [id number] / Procedures Procedure Name Priority Date/Time Associated Diagnosis Comments PRO ICD INTERROGATION REMOTE UP TO 90 DAYS Routine 08/20/2023 4:32 AM EDT from Last [...] Status decision made by: Patient Care Teams Fitness Trainer Relationship Specialty Start Date End Date Lolly Oliveira MD [address] [place] [address] PCP - General 07/17/13
--- OUTSIDE RECORDS SUMMARY | 2023-10-20 11:51 | XMS_ITS | Encounter Summary ---
Author Organization [facility] [place] [address] Care Team Providers Care Line Up Examiner Name Role Phone Lolly Oliveira MD Primary Care Provider [phone] Reason for Visit * Reason Comments Follow-up 8 weeks UVB treatmen t twice weekly Encounter Details Date Type Department Care Team (Late st Contact Info) Description 07/19/2023 11:00 AM EDT Office Visit Dermatology at [address] [phone] Clay Ramírez MD [address], ERIKA A DERMATOLOGY [place], [place] [address] Psoriasis Social History Tobacco Use Types Packs/Day [...] st Contact Info) Description 01/16/2024 10:00 AM [facility] Hospital Encounter [place] [address] Arrived documented as of this encounter Visit Diagnoses Diagnosis Psoriasis Other psoriasis documented in this encounter Care Teams Line Up Examiner Relationship Specialty Start Date End Date Lolly Oliveira MD [address] [place] [address] PCP - General 07/17/13 documented as of this encounter
--- OUTSIDE RECORDS SUMMARY | 2023-10-20 11:51 | XMS_ITS | Encounter Summary ---
Author Organization [facility] Address [address] [place] [address] Care Team Providers Care Driver Messenger Name Role Phone Lolly Oliveira MD Primary Care Provider [phone] Encounter Details Date Type Department Care Team (Late st Contact Info) Description 04/17/2005 Results Only [facility] conversion [address] [place] [address] Lolly Oliveira MD [address] [place], [place] [phone] Social History Tobacco Use Types Packs/Day Years [...] ? JING ALVARENGA ? Accession #: ? [id number] : ? 1950 (Age: 54) ??F ?Collect Date: ? 04/17/2005 Location: ? [facility] ? Receive Date: ? 04/21/2005 Provider: ?LOLLY OLIVEIRA MD Copy to: ? Specimen/Source: ?ThinPrep Pap Test, Cervix/Endocervix, processed on [employer] Imaging System, with manual evaluation Last Menstrual [...] Oliveira MD PATHOLOGY ORDERABLES [facility] [address] [place] [address] documented in this encounter Visit Diagnoses Not on filedocumented in this encounter Care Teams Driver Messenger Relationship Specialty Start Date End Date Lolly Oliveira MD [address] [place] [address] PCP - General 11/13/08 documented as of this encounter
--- OUTSIDE RECORDS SUMMARY | 2023-10-20 11:51 | XMS_ITS | Encounter Summary ---
Author Organization [facility] [place] [address] Care Team Providers Care Blasting Entry Specialist Name Role Phone Lolly Oliveira MD Primary Care Provider [phone] Encounter Details Date Type Department Care Team (Latest Contact Info) Description 10/18/2023 10:00 AM EDT - 10/18/2023 11:59 PM EDT Hospital Encounter Non-Invasive [place] [address] Arrived Discharge Disposition: Home Social History Tobacco Use [...] with spacer fluticasone propionate (Flonase) 50 mcg/actuation [place], Suspension 1 spray by Each Nare route daily as needed. documented as of this encounter Plan of Treatment Upcoming Encounters Date Type Department Care Team (Late st Contact Info) Description 01/16/2024 10:00 AM [facility] Hospital Encounter Non-Invasive [place] [address] Arrived documented as of this encounter Procedures Procedure Name Priority Date/Time Associated Diagnosis Comments PRO ICD INTERROGATION REMOTE UP TO 90 DAYS Routine 08/20/2023 4:32 AM EDT documented in this encounter Results * Cardiac Device Check - Remote (08/20/2023 4:32 AM EDT) Anatomical Region Laterality Modality Other 08/20/2023 4:32 AM EDT Tre Aleman MD IMPLANTABLE CARDIAC DEVICE documented in this encounter Visit Diagnoses Not on filedocumented in this encounter Care Teams Blasting Entry Specialist Relationship Specialty Start Date End Date Lolly Oliveira MD [address] [place] [address] PCP - General 5/12/14 documented as of this encounter
--- OUTSIDE RECORDS SUMMARY | 2023-10-20 11:51 | XMS_ITS | Clinical Summary ---
Author Organization [facility] Address [address] [place] [address] Care Team Providers Care Tetryl Wringer Operator Name Role Phone Lolly Oliveira MD Primary Care Provider [phone] Social History Tobacco Use Types Packs/Day Years [...] COVID-19 Vaccine ( season) 2022 Care Teams Tetryl Wringer Operator Relationship Specialty Start Date End Date Lolly Oliveira MD [address] [place], [place] [address] PCP - General 11/13/08
--- OUTSIDE RECORDS SUMMARY | 2023-10-20 11:51 | XMS_ITS | Encounter Summary ---
Author Organization [facility] [place] [address] Care Team Providers Care Bee Rancher Name Role Phone Lolly Oliveira MD Primary Care Provider [phone] Encounter Details Date Type Department Care Team (Late st Contact Info) Description 05/18/2023 Telephone Dermatology at [address] [address] Nora Meredith LPN Social History [...] st Contact Info) Description 01/16/2024 10:00 AM [facility] Hospital Encounter Non-Invasive [place] [address] Arrived documented as of this encounter Visit Diagnoses Not on filedocumented in this encounter Care Teams Bee Rancher Relationship Specialty Start Date End Date Lolly Oliveira MD [address] [place] [address] PCP - General 07/17/13 documented as of this encounter
--- OUTSIDE RECORDS SUMMARY | 2023-10-20 11:51 | XMS_ITS | Encounter Summary ---
Author Organization [facility] Address [address] [place] [address] Care Team Providers Care Pulp Grinder And Blender Name Role Phone Lolly Oliveira MD Primary Care Provider [phone] Encounter Details Date Type Department Care Team (Late st Contact Info) Description 04/12/2007 Results Only [facility] conversion [address] [place] [address] Lolly Oliveira MD [address] [place], [place] [id number] Social History Tobacco Use Types Packs/Day Years [...] ? JING ALVARENGA ? Accession #: ? [id number] : ? 1950 (Age: 56) ??F ?Collect Date: ? 04/12/2007 Location: ? [facility] ? Receive Date: ? 04/13/2007 Provider: ?LOLLY OLIVEIRA MD Copy to: ? Specimen/Source: ?ThinPrep Pap Test, Cervix/Endocervix, processed on [employer] ThinPrep Imaging System, with manual evaluation Last [...] Oliveira MD PATHOLOGY ORDERABLES [facility] [address] [place] [address] documented in this encounter Visit Diagnoses Not on filedocumented in this encounter Care Teams Pulp Grinder And Blender Relationship Specialty Start Date End Date Lolly Oliveira MD [address] [place] [address] PCP - General 11/13/08 documented as of this encounter
--- OUTSIDE RECORDS SUMMARY | 2023-10-20 11:51 | XMS_ITS | Encounter Summary ---
Author Organization [facility] Address [address] [place] [address] Care Team Providers Care Director Life Sales Name Role Phone Lolly Oliveira MD Primary Care Provider [phone] Encounter Details Date Type Department Care Team (Late st Contact Info) Description 05/29/2002 Results Only [facility] - [facility] conversion [address] [place] [address] Silvia Diehl, [address] [place] [address] Social History Tobacco Use Types Packs/Day Years [...] ? JING MOTT ? Accession #: ? [id number] : ? 1950 (Age: 51) ??F ?Collect Date: ? 05/29/2002 Location: ? [facility] ? Receive Date: ? 05/31/2002 Provider: ?SILVIA DIEHL SAWMILL OR TIMBER YARD WORKER Copy to: ? Specimen/Source: ?ThinPrep Pap Test, [...] Report [facility] 05/29/2002 05/31/2002 Silvia Diehl SAW[place] OR TIMBER YARD WORKER PATHOLOGY ORDERABLES [facility] [address] [place] [address] documented in this encounter Visit Diagnoses Not on filedocumented in this encounter Care Teams Director Life Sales Relationship Specialty Start Date End Date Lolly Oliveira MD [address] [place] [address] PCP - General 11/13/08 documented as of this encounter
--- OUTSIDE RECORDS SUMMARY | 2023-10-20 11:51 | XMS_ITS | Encounter Summary ---
Author Organization [facility] Address [address] [place] [address] Care Team Providers Care Nephrology Nurse Name Role Phone Lolly Oliveira MD Primary Care Provider [phone] Encounter Details Date Type Department Care Team (Late st Contact Info) Description 03/06/2003 Results Only [facility] [address] [place] [address] Lolly Oliveira MD [address] [place], [place] [phone] Social History Tobacco Use Types Packs/Day Years [...] Oliveira MD PATHOLOGY ORDERABLES Performing Organization Address City/State/[facility] Co de Phone Number [facility] [address] [place] [address] documented in this encounter Visit Diagnoses Not on filedocumented in this encounter Care Teams Nephrology Nurse Relationship Specialty Start Date End Date Lolly Oliveira MD [address] [place] [address] PCP - General 11/13/08 documented as of this encounter
--- OUTSIDE RECORDS SUMMARY | 2023-10-20 11:51 | XMS_ITS | Encounter Summary ---
Author Organization [facility] [place] [address] Care Team Providers Care C.O.D. Clerk Name Role Phone Lolly Oliveira MD Primary Care Provider [phone] Encounter Details Date Type Department Care Team [...] AM EST Hospital Encounter Non[place] [address] Arrived documented as of this encounter Visit Diagnoses Not on filedocumented in this encounter Care Teams C.O.D. Clerk Relationship Specialty Start Date End Date Lolly Oliveira MD [address] [place] [address] PCP - General 07/17/13 documented as of this encounter
--- OUTSIDE RECORDS SUMMARY | 2023-10-20 11:51 | XMS_ITS | Encounter Summary ---
Author Organization [facility] Address [facility] [place] [id number] Care Team Providers Care Sports Trainer Name Role Phone Lolly Oliveira MD Primary Care Provider [phone] Reason for Referral * Diagnostic Test (Routine) - Closed Specialty Diagnoses / Procedures Referred By Contkoki t Referred To Contact Cardiology Diagnoses Nonischemic cardiomyopathy Biventricular ICD (implantable cardioverter-defibrillator) in place Procedures Echocardiogram Transthoracic Lalit Mcmahon MD [facility] [address] [place] [id number] Referral ID Status Reason Start Date Expiration Date V isits Requested Visits Authorized [id number] Closed Specialty Service Requested 03/15/2023 09/11/2023 1 1 Encounter Details Date Type Department Care Team (Late st Contact Info) Description 03/15/2023 Orders Only Cardiology at [address] [address] Lalit Mcmahon MD [facility] [place] [address] Nonischemic cardiomyopathy; Biventricular ICD (implantable cardioverter-defibrill ator) in place Social History Tobacco Use Types Packs/Day Years Used Date Smoking Tobacco: Never Alcohol Use Standard Drinks/Week Comments Not Currently 0 (1 standard drink = 0.6 oz pur e alcohol) [facility] Inpatient Questions Answer Date Recorded Does [...] AM EST Hospital Encounter Non-Invasive [place] [address] Arrived Scheduled Orders Name Type Priority Associated Diagnoses Order Schedule Echocardiogram Transthoracic Echocardiography Routine Nonischemic cardiomyopathy Biventricular ICD (implantable cardioverter-defibr illator) in place Expected: 05/05/2023, Expires: 11/04/2023 documented as of this encounter Visit Diagnoses Diagnosis Nonischemic cardiomyopathy Other primary cardiomyopathies Biventricular ICD (implantable cardioverter-defibrillator) in place documented in this encounter Care Teams Sports Trainer Relationship Specialty Start Date End Date Lolly Oliveira MD [address] [place] [address] PCP - General 07/17/13 documented as of this encounter
--- OUTSIDE RECORDS SUMMARY | 2023-10-20 11:51 | XMS_ITS | Encounter Summary ---
Author Organization [facility] Address [address] [place] [address] Care Team Providers Care Air Carrier Inspector Name Role Phone Lolly Oliveira MD Primary Care Provider [phone] Encounter Details Date Type Department Care Team (Late st Contact Info) Description 04/01/2005 Results Only [facility] [address] [place] [address] Blair Dukes MD [address] [place] [id number] Social History Tobacco Use Types Packs/Day Years [...] ? JING ALVARENGA ? Accession #: ? [id number] ? : ? 1950 (Age: 54) ??F [...] (A). Received in [place]' s fixative labelled [place] and #2 ??transverse colon bx is a single 0.2 x 0.2 x 0.2 cm tissue, submitted intact as (B). ??(Dr. Lechuga)/[facility] End of Report [facility] 04/01/2005 04/02/2005 15: 24 EST Blair Dukes MD PATHOLOGY ORDERABLES [facility] [address] [place] [address] documented in this encounter Visit Diagnoses Not on filedocumented in this encounter Care Teams Air Carrier Inspector Relationship Specialty Start Date End Date Lolly Oliveira MD [address] [place] [address] PCP - General 11/13/08 documented as of this encounter
--- OUTSIDE RECORDS SUMMARY | 2023-10-20 11:51 | XMS_ITS | Encounter Summary ---
Author Organization [facility] [place] [address] Care Team Providers Care Legal Document Specialist Name Role Phone Lolly Oliveira MD Primary Care Provider [phone] Encounter Details Date Type Department Care Team (Latest Contact Info) Description 07/20/2023 10:00 AM EDT - 07/20/2023 11:59 PM EDT Hospital Encounter Non-[place]vasive [place] [phone] Discharge Disposition: Home Social History Tobacco Use [...] with spacer fluticasone propionate (Flonase) 50 mcg/actuation [place], Suspension 1 spray by Each Nare route daily as needed. documented as of this encounter Plan of Treatment Upcoming Encounters Date Type Department Care Team (Late st Contact Info) Description 01/16/2024 10:00 AM [facility] Hospital Encounter Non-[place] [address] Arrived documented as of this encounter Procedures [...] on filedocumented in this encounter Care Teams Legal Document Specialist Relationship Specialty Start Date End Date Lolly Oliveira MD [address] [place] [address] PCP - General 07/17/13 documented as of this encounter
--- OUTSIDE RECORDS SUMMARY | 2023-10-20 11:51 | XMS_ITS | Encounter Summary ---
Author Organization [facility] Address [address] [place] [address] Care Team Providers Care Desktop Administrator Name Role Phone Lolly Oliveira MD Primary Care Provider [phone] Encounter Details Date Type Department Care Team (Late st Contact Info) Description 04/25/2009 Orders Only [facility] Services - [facility] [address] [place], [place] [phone] Lolly Oliveira MD [address] [place], [place] [phone] Social History Tobacco Use Types Packs/Day Years [...] ? JING ALVARENGA ? Accession #: ? [id number] ? : ? 1950 (Age: 58) ??F [...] reviewed and electronically signed by: ? Helena Cornelia, CT(ASCP) ? Report Date: ??04/29/2009 10:38 ? End of Report ? [facility] 04/25/2009 04/26/2009 Lolly Oliveira MD PATHOLOGY ORDERABLES [facility] [address] [place] [address] documented in this encounter Visit Diagnoses Not on filedocumented in this encounter Care Teams Desktop Administrator Relationship Specialty Start Date End Date Lolly Oliveira MD [address] [place] [address] PCP - General 11/13/08 documented as of this encounter
--- OUTSIDE RECORDS SUMMARY | 2023-10-20 11:51 | XMS_ITS | Encounter Summary ---
Author Organization [facility] Address [address] [place] [address] Care Team Providers Care Service Manager Name Role Phone Lolly Oliveira MD Primary Care Provider [phone] Encounter Details Date Type Department Care Team (Late st Contact Info) Description 06/16/2012 Results Only [facility] Laboratory Services - [facility] ([facility]) [address] [place], [place] [phone] Lolly Oliveira MD [address] [place], [place] [phone] Social History Tobacco Use Types Packs/Day Years [...] ? JING ALVARENGA ? Accession #: ? [id number] : ? 1950 (Age: 61) ??F ?Collect [...] Report [facility] 06/16/2012 06/17/2012 Lolly Oliveiar MD PATHOLOGY ORDERABLES [facility] [address] [place] [address] documented in this encounter Visit Diagnoses Not on filedocumented in this encounter Care Teams Service Manager Relationship Specialty Start Date End Date Lolly Oliveira MD [address] [place] [address] PCP - General 11/13/08 documented as of this encounter
--- OUTSIDE RECORDS SUMMARY | 2023-10-20 11:51 | XMS_ITS | Encounter Summary ---
Author Organization [facility] [place] [address] Care Team Providers Care Flight Crew Time Clerk Name Role Phone Lolly Oliveira MD Primary Care Provider [phone] Encounter Details Date Type Department Care Team (Late st Contact Info) Description 03/17/2023 Telephone Cardiology at [address] [phone] Saranya Ma Social History Tobacco Use Types Packs/Day Years Used Date Smoking Tobacco: Never Alcohol Use Standard Drinks/Week Comments Not Currently 0 (1 standard drink = 0.6 oz pur e alcohol) [facility] Inpatient Questions Answer Date Recorded Does [...] 9:43 AM EST Echo order faxed to [facility] at [phone]. No Prior auth needed. Ref #:[id number]. Saranya Ma Sr. Clinical Procedure [place]/Engagement Manager documented in this encounter Plan of Treatment Upcoming Encounters Date Type Department Care Team (Late st Contact Info) Description 01/16/2024 10:00 AM [facility] Encounter [place] [address] Arrived documented as of this encounter Visit Diagnoses Not on filedocumented in this encounter Care Teams Flight Crew Time Clerk Relationship Specialty Start Date End Date Lolly Oliveira MD [address] [place] [address] PCP - General 07/17/13 documented as of this encounter
--- OUTSIDE RECORDS SUMMARY | 2023-10-20 11:51 | XMS_ITS | Referral Summary ---
Author Organization [facility] Address [address] [place] [address] Care Team Providers Care Metal Melter Name Role Phone Lolly Oliveira MD Primary Care Provider [phone] Social History Tobacco Use Types Packs/Day Years Used Date Smoking Tobacco: Never Assessed Sex and Gender Information Value Date Recorded Sex Assigned at Not on file Gender Identity Not on file Sexual Orientation Not on file Plan of Treatment Not on file Care Teams Metal Melter Relationship Specialty Start Date End Date Lolly Oliveira MD [address] [place] [address] PCP - General 11/13/08
--- OUTSIDE RECORDS SUMMARY | 2023-10-20 11:52 | XMS_ITS | Encounter Summary ---
Author Organization [facility] [place] [address] Care Team Providers Care Director Dance Name Role Phone Lolly Oliveira MD Primary Care Provider [phone] Encounter Details Date Type Department Care Team (Late st Contact Info) Description 07/26/2013 [place] [phone] Eleno Christian MD [facility] [place] [address] Social History Tobacco Use Types Packs/Day Years [...] AM EST Hospital Encounter Non[place] [address] Arrived documented as of this encounter Visit Diagnoses Not on filedocumented in this encounter Care Teams Director Dance Relationship Specialty Start Date End Date Lolly Oliveira MD [address] [place] [address] PCP - General 07/17/13 documented as of this encounter
--- OUTSIDE RECORDS SUMMARY | 2023-10-20 11:52 | XMS_ITS | Encounter Summary ---
Author Organization [facility] Address [facility] [address] Care Team Providers Care Guitar Maker Hand Name Role Phone Lolly Oliveira MD Primary Care Provider [phone] Reason for Visit * Auth/Cert (Routine) Specialty Diagnoses / Procedures Referred By Contac t Referred To Contact Diagnoses Left bundle-branch block, unspecified Other cardiomyopathies Left bundle branch block [I44.7]Nonischemic cardiomyopathy [I42.8] Procedures PRG CATH PLMT LEFT HEART CATH & ARTS W/INJ & ANGIO IMG S&I ELECTROPHYSIOLOGY PROCEDURE Lalit Mcmahon MD [facility] [place] [address] [facility] Referral ID Status Reason Start Date Expiration Date Visits Re quested Visits Authorized [id number] 1 1 Encounter Details Date Type Department Care Team (Late st Contact Info) Description 07/23/2022 1:08 PM EDT Anesthesia Event [place] [address] Monae Gonzalez MD [facility] [place] [address] Maria Elena Snyder CRNA [facility] [place] [address] Anesthesia Record Procedure Summary Procedure Name Responsible [...] 1307; median cubital vein (antecubital fossa), right; [id number] catheter system; Anatomical Landmarks; 20 gauge; 07/24/22; [...] 1343; metacarpal vein (top of hand), left; fbkw-urb-loglun catheter system; Anatomical Landmarks; US Not Used; [...] Procedure Summary Date: 07/23/22 Room / Location: [facility] A-LAB ROOM 3 / [facility] EP LABS Anesthesia Start: 1308 Anesthesia Stop: 1633 Procedure: ELECTROPHYSIOLOGY PROCEDURE (Left) Diagnosis: Left bundle branch block Nonischemic cardiomyopathy (Left bundle branch block [I44.7]Nonischemic cardiomyopathy [I42.8]) Providers: Lalit Mcmahon MD Responsible Provider: Monae Gonzalez MD Anesthesia Type: general ASA Status: 4 All Anesthesia Providers: Anesthesiologist: Monae Gonzalez MD; Dominique Sen MD DISABILITY AIDE: Maria Elena Snyder CRNA Vitals Value Taken Time BP 131/46 07/23/22 1700 Temp 36.7 ??C (98.1 ??F) 07/23/22 1627 Pulse 67 07/23/22 1703 Resp 14 07/23/22 1703 SpO2 98 % 07/23/22 1703 Pain Level Vitals shown include unvalidated device data. Patient Location: PACU/[facility] Level of Consciousness: Conscious but Sleepy [...] and Nonischemic CM (EF 15-20%)who presents for TERRAZZO POLISHER-D. No prior anesthetic records. Pt states that [...] daughter/son and patient who. Plan discussed with DISABILITY AIDE. Anesthesia Screening documented in this encounter Plan of Treatment Upcoming Encounters Date Type Department Care Team (Late st Contact Info) Description 01/16/2024 10:00 AM [facility] Hospital Encounter Non-[place]vasive [place] [address] Arrived documented as of this [...] mg documented in this encounter Care Teams Guitar Maker Hand Relationship Specialty Start Date End Date Lolly Oliveira MD [address] [place] [address] PCP - General 07/17/13 documented as of this encounter
--- OUTSIDE RECORDS SUMMARY | 2023-10-20 11:52 | XMS_ITS | Encounter Summary ---
Author Organization [facility] [place] [address] Care Team Providers Care Metal Bench Patternmaker Name Role Phone Lolly Oliveira MD Primary Care Provider [phone] Reason for Visit * Reason Comments Follow-up Encounter Details Date Type Department Care Team (Late st Contact Info) Description 06/06/2021 8:45 AM EDT Office Visit Dermatology at [address] [address] Clay Ramírez MD [address] [facility] [place] [address] Psoriasis, guttate Social History Tobacco Use Types [...] st Contact Info) Description 01/16/2024 10:00 AM [facility] Hospital Encounter Non-Invasive [place] [address] Arrived documented as of this encounter Visit Diagnoses Diagnosis Psoriasis, guttate Other psoriasis documented in this encounter Care Teams Metal Bench Patternmaker Relationship Specialty Start Date End Date Lolly Oliveira MD [address] [place] [address] PCP - General 07/17/13 documented as of this encounter
--- OUTSIDE RECORDS SUMMARY | 2023-10-20 11:52 | XMS_ITS | Encounter Summary ---
Author Organization [facility] [place] [address] Care Team Providers Care Vehicle Inspector Name Role Phone Lolly Oliveira MD Primary Care Provider [phone] Reason for Visit * Reason Onset Date Comments Other 07/24/2022 Implanted Cardia c Device Teaching/Education Encounter Details Date Type Department Care Team (Late st Contact Info) Description 07/24/2022 Notes Only Cardiology at [address] [phone] Letha Arroyo Other (Implanted Cardiac Device Teaching/Education) [...] to call the Cardiac Device Clinic at [phone] with any questions. Plan: Post op check: [...] st Contact Info) Description 01/16/2024 10:00 AM [facility] Hospital Encounter Non-Invasive [place] [address] Arrived documented as of this encounter Visit Diagnoses Not on filedocumented in this encounter Care Teams Vehicle Inspector Relationship Specialty Start Date End Date Lolly Oliveira MD [address] [place] [address] PCP - General 07/17/13 documented as of this encounter
--- OUTSIDE RECORDS SUMMARY | 2023-10-20 11:52 | XMS_ITS | Encounter Summary ---
Author Organization [facility] Address [facility] [place] [address] Care Team Providers Care Railway Switch Operator Name Role Phone Lolly Oliveira MD Primary Care Provider [phone] Reason for Visit * Auth/Cert (Routine) Specialty Diagnoses / Procedures Referred By Contac t Referred To Contact Diagnoses Left bundle-branch block, unspecified Other cardiomyopathies Left bundle branch block [I44.7]Nonischemic cardiomyopathy [I42.8] Procedures PRG CATH PLMT LEFT HEART CATH & ARTS W/INJ & ANGIO IMG S&I ELECTROPHYSIOLOGY PROCEDURE Lalit Mcmahon MD [facility] [place] [address] [facility] Referral ID Status Reason Start Date Expiration Date Visits Re quested Visits Authorized [id number] 1 1 Encounter Details Date Type Department Care Team (Latest Contact Info) Description 07/23/2022 11:39 AM EDT - 07/24/2022 10:23 AM EDT Hospital [place] [id number] Lalit Mcmahon MD [facility] [place] [address] Left bundle branch block; Nonischemic cardiomyopathy; Cardiac resynchronization therapy defibrillator (RING FACER-D) in place Discharge Disposition: Home Social History [...] Luna Mott Patient Age: 71 y.o. Language: Romansh Race: White Ethnicity: Not nor Admit date: 07/23/2022 Discharge date and time: 07/24/22 Attending Physician: Lalit Mcmahon MD Discharge Physician: Lalit Mcmahon MD Follow-up Recommendations for Providers: - s/p RING FACER-D implant - post implant QRS 130 ms - reviewed post-implant instructions - no medication changes - Follow up in device clinic for wound/device check in ~10 days ([facility]) Inpatient Provider Contact Information: Cardiac Electrophysiology - Discharge Diagnoses (Hospital Problems) and Secondary Diagnoses (Chronic Problems): Active Hospital Problems Diagnosis ??? HFrEF (heart failure with reduced ejection fraction) Resolved Hospital Problems No resolved problems to display. Active Non-Hospital Problems Diagnosis ??? Dermatofibroma ??? Nevus ??? Solar lentigo Operations/Major Procedures: 07/23/22: [facility] RING FACER-D implant History of Presentation: 71 y.o. female with a history of HFrEF, LBBB, QRS >150, NYHA II who is POD#1 of RING FACER-D implant ([employer]). Hospital Course: Elective admission for RING FACER-D implant Admitted post-implant for pain management, telemetry [...] (heart failure with reduced ejection fraction) [I50.20] RING FACER-D implant Admission Condition: good Indication for Admission: [...] g Refills: 3 fluticasone propionate 50 mcg/actuation [place], Suspension Commonly known as: Flonase 1 spray [...] incision. Make sure to use a cloth spreader screen printing (such as a towel) in between the [...] F. The office scheduling phone number is [phone]. ARM MOVEMENT RESTRICTIONS POST-IMPLANT - Do not [...] please call the Cardiac ElectrophysiologyTriage Nurse at [phone], option 3. General Instructions None Discharge References/Attachments [...] incision. Make sure to use a cloth spreader screen printing (such as a towel) in between the [...] F. The office scheduling phone number is [phone]. ARM MOVEMENT RESTRICTIONS POST-IMPLANT - Do not [...] please call the Cardiac ElectrophysiologyTriage Nurse at [phone], option 3. documented in this encounter Medications [...] with spacer fluticasone propionate (Flonase) 50 mcg/actuation [place], Suspension 1 spray by Each Nare route [...] Cardiac Electrophysiology Post-Implant Device Interrogation Luna Mott [id number] 07/24/2022 History: Luna Mott is a 71 y.o. female with a history of HFrEF, LBBB, QRS >150, NYHA II who is POD#1 of RING FACER-D implant ([employer]). Overall feels well this morning. Ready [...] WOB Neuro- A&Ox3 Device Interrogation: Data ?? Blender Operator Model # Serial # Generator [employer] [id number] Atrial Lead [employer] [id number] RV Lead [employer] 0672 [id number] LV Lead [employer] 4674 [id number] ?? Diagnostics Pacing Mode: DDD 60-130 Underlying Rhythm: [place] Atrial Episodes: None Ventricular Episodes: None FINAL PROGRAMMING: Pacing: Mode Lower rate (ppm) Upper rate (ppm) ?? DDD 60 130 VF: Rate (bpm) #Antitachycardia pacing First shock energy (J) ?? 200 Quick convert 41 VT: 170 Monitor only Monitor only ? Battery and Leads Impedances (ohms) Sensing (mV) Thresholds HV RA RV LV RA RV LV RA RV LV 73 980 250 0439 (LVa) 7.7 13.1 >25 0.4V @ 0.4 ms 0.4V @ 0.4 ms 0.5 V @ 1.0 ms POD#1 CXR: All leads in nominal positioning Impression: 71 y.o. female who is s/p RING FACER-D implant for LBBB, NYHA II, HFrEF. - Appropriate device function post-implant - CXR negative for post-implant complications - Changed sensed AV delay from 130 to 110 Plan: 1. Reviewed standard post-implant discharge instructions (see patient instructions) including arm restrictions, wound care, bathing, and driving 2. No medication changes. 3. Follow up in device clinic for wound/device check in ~10 days ([facility]) Fadi Nunez MD 07/24/2022 Pager: [phone] I met with the patient today and [...] agreement. ? Dr. Lalit Mcmahon, electrophysiology attending ([id number]) * Zaria Wright RN - 07/23/2022 8:28 [...] HF, QRS > 150 ms presents for RING FACER-D placement. ROS: Denies recent fevers or chills [...] 0.9) flush 5 mL 5 mL Intravenous [id number] ramos MD ??? sodium chloride 0.9 % [...] HF, QRS > 150 ms presents for RING FACER-D placement. Backup would be LBBAP lead. Antibiotics: cefazolin Rationales for, intended benefits and potential risk of planned procedures reviewed. The patient indicated understanding and agreement with the plan. Informed consent signed. Procedure checklist completed. Fadi Nunez MD Cardiac Electrophysiology Fellow [facility] Pager [phone] 07/23/2022 I met with the patient today [...] agreement. ? Dr. Lalit Mcmahon, electrophysiology attending ([id number]) documented in this encounter Miscellaneous Notes * Brief Op Note - Lalit Mcmahon MD - 07/23/2022 4:04 PM EDT Brief Operative Note Patient Name: Lnua Mott : [id number] MR#: [id number] Case Date: 07/23/2022 Surgeon: Surgeon(s) and Role: [...] AM EST Hospital Encounter Non[place] [address] Arrived Scheduled Orders Name Type Priority Associated Diagnoses Orde r Schedule EKG 12 Lead ECG Routine Cardiac resynchronization therapy defibrillator (RING FACER-D) in place One Time for 1 Occurrences [...] (Bezet) 522 ms MUSE SYSTEM Calculated R [place] 78 degrees MUSE SYSTEM Calculated T [place] -71 degrees MUSE SYSTEM INTERPRETATION AV dual-paced [...] who have questions please contact the health caretaker grounds that requested your imaging first. ? Narrative [...] patients who have questions please contactthe health caretaker grounds that requested your imaging first. Lalit Mcmahon MD IMG DX ORDERABLES * ELECTROPHYSIOLOGY PROCEDURE (07/23/2022 1:11 PM EDT) Anatomical Region Laterality Modality Other Narrative 07/23/2022 4:24 PM EDT Table formatting from the original result was not included. BIVENTRICULAR ICD IMPLANTATION Hydraulic Mechanic: Lalit Mcmahon MD Fellow: Fadi Nunez MD [...] lateral branch of the CS in the KOREAN view. This branch was cannulated with a [...] the entire procedure. LEAD AND GENERATOR DATA: Blender Operator Model # Serial # Generator [employer] [id number] Atrial Lead [employer] [id number] [id number] RV Lead [employer] 0672 064352 LV Lead [employer] [id number] [id number] PACE/SENSE DATA: Sensed wave (mV) Threshold (V) [...] (cGycm2) 300 CONCLUSIONS: Successful implantation of a [employer] biventricular ICD for primary prevention and treatment of symptoms related to congestive heart failure. Follow up in EP clinic in 1-2 months. Procedures performed: new ICD system ( cpt 46737-I8); implant LV lead at time of ICD insertion (cpt 64144) I have read, edited and approve of this report: Lalit Mcmahon MD S Cardiac Electrophysiology 07/23/2022 4:22 PM Procedure Note Lalit Mcmahon MD - 07/23/2022 BIVENTRICULAR ICD IMPLANTATION Hydraulic Mechanic: Lalit Mcmahon MD Fellow: Fadi Nunez MD [...] appropriate lateralbranch of the CS in the KOREAN view. This branch was cannulated with a [...] in the entireprocedure. LEAD AND GENERATOR DATA: Blender Operator Model # Serial # Generator [employer] [id number] Atrial Lead [employer] [id number] [id number] RV Lead [employer] 0672 479266 LV Lead [employer] 4674 [id number] PACE/SENSE DATA: Sensed wave (mV) Threshold (V) [...] (cGycm2) 300 CONCLUSIONS: Successful implantation of a [employer] biventricular ICD forprimary prevention and treatment of symptoms related to congestive heartfailure. Follow up in EP clinic in 1-2 months. Procedures performed: new ICD system ( cpt 86620-Z3); implant LV lead attime of ICD insertion (cpt 03256) I have read, edited and approve of this report: Lalit Mcmahon MD [facility] Cardiac Electrophysiology 07/23/2022 4:22 PM Lalit Mcmahon MD EP PROCEDURE ORDERAB LES * POCT Glucose (07/23/2022 12:54 PM EDT) Glucose, POC 83 65 - 199 mg/dL [facility] Comment: Supplemental ranges: <140 mg/dL before meals <180 mg/dL all other times of the day Blood 07/23/2022 12:5 4 PM EDT 07/23/2022 12:54 PM EDT Lalit Mcmahon MD POINT OF CARE TEST O RDERABLES Performing Organization Address [facility] Co de Phone Number [facility] [place] [address] * EKG 12 Lead (07/23/2022 12:33 PM EDT) Ventricular rate 72 BPM MUSE SYSTEM Atrial Rate 72 BPM MUSE SYSTEM P-R Interval 158 ms MUSE SYSTEM QRS Duration 176 ms MUSE SYSTEM Q-T Interval 458 ms MUSE SYSTEM QTC Calculated (Bezet) 501 ms MUSE SYSTEM Calculated P [place] 34 degrees MUSE SYSTEM Calculated R [place] 12 degrees MUSE SYSTEM Calculated T [place] -173 degrees MUSE SYSTEM INTERPRETATION Normal sinus rhythm Left bundle branch block Abnormal ECG No previous ECGs available Confirmed by MD Salome, Lalit ([id number]) on 07/23/2022 1:19:03 PM MUSE SYSTEM 07/23/2022 12:3 3 PM EDT 07/23/2022 1:19 PM EDT Lalit Mcmahon MD ECG ORDERABLES Performing Organization Address [facility] de Phone Number MUSE SYSTEM * Differential, Automated (07/23/2022 11:55 AM EDT) Neutrophil % 62.6 % [facility] Neutrophil Absolute 4.14 1.70 - 6.10 x10(3)/[facility] Lymph % 27.0 % [facility] Lymphocytes Abs 1.8 0.9 - 3.2 x10(3)/[facility] Monocyte % 7.3 % [facility] Monocyte Abs 0.5 0.3 - 0.9 x10(3)/[facility] Eos % 2.3 % [facility] Eosinophils Abs 0.2 0.0 - 0.4 x10(3)/[facility] Basophil % 0.6 % [facility] Baso Absolute 0.0 0.0 - 0.1 x10(3)/[facility] Immature Gran % 0.20 % [facility] Comment: Immature granulocytes(IG's)percentage and absolute count will include metamyelocytes, myelocytes, and promyelocytes. Blood smears from CBCs yielding IG's will be scanned manually for concordance. If this scan disagrees with the automated IG or if promyelocytes are noted, a manual differential will be performed. Immature Gran Absolute 0.01 0.00 - 0.04 x10(3)/[facility] Blood 07/23/2022 11:5 5 AM EDT 07/23/2022 12:07 PM EDT Narrative Resulting Agency Comment Spec In Lab Lalit Mcmahon MD HEMATOLOGY ORDERABLE S [facility] [place] [address] * Hemogram (07/23/2022 11:55 AM EDT) White Blood Cell 6.6 4.0 - 9.5 x10(3)/[facility] Red Blood Cell 4.50 4.00 - 5.21 x10(6)/[facility] Hemoglobin 13.7 11.7 - 15.5 g/dL [facility] Hematocrit 42.5 35.7 - 45.8 % [facility] Mean Cell Volume 94.4 82.6 - 94.4 fL [facility] Mean Cell Hemoglobin 30.4 27.1 - 32.0 pg [facility] Mean Cell Hemoglobin Concentration 32.2 31.7 - 35.0 g/dL [facility] Platelet 193 145 - 357 x10(3)/[facility] RDW Standard Deviation 45.5 37.0 - 46.0 fL [facility] RDW coefficient of variation 13.2 11.5 - 14.1 % [facility] Mean Platelet Volume 9.5 7.6 - 12.9 fL [facility] NRBC% auto 0.0 % [facility] NRBC Absolute 0.000 0.000 - 0.000 x10(3)/mcL [facility] Blood 07/23/2022 11:5 5 AM EDT 07/23/2022 12:07 PM EDT Narrative Resulting Agency Comment Spec In Lab Lalit Mcmahon MD HEMATOLOGY ORDERABLE S [facility] [address] [place] [address] * (ABNORMAL) BMP w/fasting Glucose (07/23/2022 11:55 AM EDT) Glucose Fasting 110(H) 65 - 99 mg/dL [facility] Comment: ?Fasting* Glucose Interpretive Criteria Normal [...] of Diabetes Mellitus, Position Statement from the [place] [employer]. ??Diabetes Care, Volume 33, Supplement 1, Mar 2009 Blood Urea Nitrogen 23(H) 8 - 18 mg/dL [facility] Creatinine 1.07 0.70 - 1.20 mg/dL [facility] Sodium 141 135 - 145 mmol/L [facility] Potassium 4.8 3.5 - 5.0 mmol/L [facility] Comment: Please note: ??Patients with WBC >100,000 may have falsely elevated Potassium levels. ??For accurate Potassium quantification in these patients send serum separator tube (gold top) for subsequent determinations. ??Contact the Clinical Chemistry Laboratory if there are any questions. Chloride 106 98 - 107 mmol/L [facility] Carbon Dioxide 26 22 - 31 mmol/L [facility] Anion Gap 9 5 - 15 mmol/L [facility] Calcium 9.7 8.5 - 10.5 mg/dL [facility] Est Glomerular Filtration Rate 55(L) >=60 mL/min/1. 73 m?? [facility] Comment: This patient's estimated GFR was [...] Mcmahon MD CHEMISTRY ORDERABLES Performing Organization Address [facility] Co de Phone Number [facility] [place] [address] * Prothrombin Time (07/23/2022 11:55 AM EDT) Prothrombin Time 11.7 9.4 - 12.5 sec [facility] International Normalization Ratio 1.0 [facility] Comment: An INR <2.0 indicates adequate [...] MD HEMATOLOGY ORDERABLE S Performing Organization Address City/[facility] Co de Phone Number [facility] [place] [address] documented in this encounter Visit Diagnoses Diagnosis HFrEF (heart failure with reduced ejection fraction)- Primary Left bundle branch block Other left bundle branch block Nonischemic cardiomyopathy Other primary cardiomyopathies Cardiac resynchronization therapy defibrillator (RING FACER-D) in place Left bundle branch block Other [...] Routine documented in this encounter Care Teams Railway Switch Operator Relationship Specialty Start Date End Date Lolly Oliveira MD [address] [place] [address] PCP - General 07/17/13 documented as of this encounter
--- OUTSIDE RECORDS SUMMARY | 2023-10-20 11:52 | XMS_ITS | Encounter Summary ---
Author Organization [facility] [place] [address] Care Team Providers Care Wood Carver Name Role Phone Lolly Oliveira MD Primary Care Provider [phone] Encounter Details Date Type Department Care Team (Latest Contact Info) Description 07/17/2013 8:40 AM EDT - 07/17/2013 11:59 PM EDT Hospital Encounter XRay at [address] [place] [phone] [address], [facility] Discharge Disposition: Home Social [...] AM EST Hospital Encounter Non-[place] [address] Arrived documented as of this encounter Visit Diagnoses Not on filedocumented in this encounter Care Teams Wood Carver Relationship Specialty Start Date End Date Lolly Oliveira MD [address] [place] [address] PCP - General 07/17/13 documented as of this encounter
--- OUTSIDE RECORDS SUMMARY | 2023-10-20 11:52 | XMS_ITS | Encounter Summary ---
Author Organization [facility] [place] [address] Care Team Providers Care Supervisor Maintenance Name Role Phone Lolly Oliveira MD Primary Care Provider [phone] Reason for Referral * Consultation (Routine) - Closed Specialty Diagnoses / Procedures Referred By Contact Referred To Contact Electrophysiology / Cardiology Diagnoses Left bundle branch block Cardiomyopathy, unspecified type AT MINIMUM PT NEEDS CONSIDERATION FOR DEFIBRILLATOR, ALSO CANDIDATE FOR RESYNCHRONIZATION THERAPY HER QRS IS >0.16 Lolly Oliveira MD [address] [place] [address] [facility] Cardiology [address] [place] [phone] Referral ID Status Reason Start Date Expiration Date V isits Requested Visits Authorized [id number] Closed Consult, Test & Treat PCP Updated and/or Approved 04/30/2022 04/30/2023 6 6 Encounter Details Date Type Department Care Team (Latest Contact Info) Description 04/30/2022 Transcribe Orders eDH Incoming Referrals [phone] Lolly Oliveira MD [address] [place], [place] [id number] Left bundle branch block; Cardiomyopathy, unspecified type [...] AM EST Hospital Encounter [place] [address] Arrived Scheduled Referrals Name Type Priority Associated Diagnoses Orde r Schedule Referral to Cardiology Outpatient Referral Routine Left bundle branch block Cardiomyopathy, Unspecified Type Ordered: 04/30/2022 documented as of this encounter Visit Diagnoses Diagnosis Left bundle branch block Other left bundle branch block Cardiomyopathy, unspecified type documented in this encounter Care Teams Supervisor Maintenance Relationship Specialty Start Date End Date Lolly Oliveira MD [address] [place] [address] PCP - General 07/17/13 documented as of this encounter
--- OUTSIDE RECORDS SUMMARY | 2023-10-20 11:52 | XMS_ITS | Encounter Summary ---
Author Organization [place] [address] Care Team Providers Care Chute Operator Name Role Phone Unavailable Primary Care Provider Unavailabl e Encounter Details Date Type Department Care Team (Late st Contact Info) Description 07/04/2012 Orders [place] [phone] Eleno Christian MD [facility] [place] [address] Social History Tobacco Use Types Packs/Day Years [...] AM EST Hospital Encounter [place] [address] Arrived documented as of this encounter Procedures [...] is a Non-reportable exam Eleno Christian MD [facility] FILM [facility]RARY ORD ERABLES documented in this encounter Visit Diagnoses Not on filedocumented in this encounter
--- OUTSIDE RECORDS SUMMARY | 2023-10-20 11:52 | XMS_ITS | Encounter Summary ---
Author Organization [facility] [place] [address] Care Team Providers Care Medical Laboratory Technical Officer Name Role Phone Lolly Olievira MD Primary Care Provider [phone] Encounter Details Date Type Department Care Team (Latest Contact Info) Description 07/18/2013 [place] [phone] Alia Fraire MD [facility] [place] [address] Mammographic microcalcification (Primary Dx) Social History Tobacco [...] AM EST Hospital Encounter [place] [phone] Arrived documented as of this encounter Results [...] are present on specimen digital X-ray. A Saphork Eviva-Stereo 13 Cylinder marker clip was placed. [...] calcifications are present on specimendigital X-ray. A [place] Eviva-Stereo 13 Cylinder marker clip was placed. [...] does not layer and, therefore, are not union contract representative of milk of calcium. Again, these [...] does not layer and, therefore, are not union contract representative of milk of calcium. Again, these have an amorphous andpunctate appearance and remain indeterminate. Stereotactic guided biopsy isrecommended. Alia Fraire MD IMG MAMMO ORDERABLES documented in this encounter Visit Diagnoses Diagnosis Mammographic microcalcification- Primary Mammographic microcalcification Mammographic microcalcification Mammographic microcalcification Mammographic microcalcification documented in this encounter Care Teams Medical Laboratory Technical Officer Relationship Specialty Start Date End Date Lolly Oliveira MD [address] [place] [address] PCP - General 07/17/13 documented as of this encounter
--- OUTSIDE RECORDS SUMMARY | 2023-10-20 11:52 | XMS_ITS | Encounter Summary ---
Author Organization [facility] [place] [address] Care Team Providers Care Store Director Name Role Phone Lolly Oliveira MD Primary Care Provider [phone] Reason for Visit * Reason Comments Psoriasis Encounter Details Date Type Department Care Team (Late st Contact Info) Description 04/09/2022 1:45 PM EST Office Visit Dermatology at [address] [address] Clay Ramírez MD [address] [facility] [place] [address] Psoriasis, guttate Social History Tobacco Use Types [...] AM EST Hospital Encounter [place] [address] Arrived documented as of this encounter Visit Diagnoses Diagnosis Psoriasis, guttate Other psoriasis documented in this encounter Care Teams Store Director Relationship Specialty Start Date End Date Lolly Oliveira MD [address] [place] [address] PCP - General 07/17/13 documented as of this encounter
--- OUTSIDE RECORDS SUMMARY | 2023-10-20 11:52 | XMS_ITS | Encounter Summary ---
[place] [address] Care Team Providers Care Bottle Inspector Name Role Phone Lolly Oliveira MD Primary Care Provider [phone] Encounter Details Date Type Department Care Team [...] AM EST Hospital Encounter Non-[place] [address] Arrived documented as of this encounter Visit Diagnoses Not on filedocumented in this encounter Care Teams Bottle Inspector Relationship Specialty Start Date End Date Lolly Oliveira MD [address] [place] [address] PCP - General 07/17/13 documented as of this encounter
--- OUTSIDE RECORDS SUMMARY | 2023-10-20 11:52 | XMS_ITS | Encounter Summary ---
[place] [address] Care Team Providers Care Dispatcher Relay Name Role Phone Lolly Oliveira MD Primary Care Provider [phone] Encounter Details Date Type Department Care Team (Latest Contact Info) Description 07/26/2013 9:45 AM EDT - 07/26/2013 11:59 PM EDT Hospital [place] [address] Mammographic microcalcification Social History Tobacco Use Types [...] AM EST Hospital Encounter Non-[place] [address] Arrived documented as of this encounter Procedures Procedure Name Priority Date/Time Associated Diagnosis Comments SURGICAL PATHOLOGY REPORT Routine 07/26/2013 12:12 PM EDT MAMMO SPECIMEN IMAGING DURING BIOPSY Routine 07/26/2013 11:58 AM EDT Mammographic microcalcification documented in this encounter Results * Surgical Pathology Report (07/26/2013 12:12 PM EDT) Final Diagnosis ? [facility] ? Provider: ?? ELENO CHRISTIAN ?? Pt. Name: ?? JING ALVARENGA ? Acc #: ?[id number] ?Pt. ? Col Date: ?? 07/26/2013 ? [...] Partially fragmented, fibrofatty needle core biopsies. ? [facility] ? Provider: ?? ELENO CHRISTIAN ?? Pt. Name: ?? JING ALVARENGA ? Acc #: ?[id number] ?Pt. ? Col Date: ?? 07/26/2013 ? [...] FCD, adenosis, DCIS 07/28/2013 8:29 AM EDT [facility] BREAST STRUCTURE / Unknown 07/26/2013 12:12 PM EDT 07/26/2013 12:12 PM EDT Eleno Christian MD PATHOLOGY/CYTOLOGY O RDERABLES Performing Organization Address City/State/[facility] Co co Phone Number [facility] [place] [address] * Mammo Specimen Imaging During Biopsy (07/26/2013 11:58 AM EDT) Anatomical Region Laterality Modality Breast N/A Mammography 07/26/2013 11:5 8 AM EDT Impressions 07/28/2013 5:26 PM EDT Impression: concordant Recommendation: f/u mammography in one year. ??As discussed with Ms. Alvarenga by Dr. [...] microcalcification documented in this encounter Care Teams Dispatcher Relay Relationship Specialty Start Date End Date Lolly Oliveira MD [address] [place] [address] PCP - General 07/17/13 documented as of this encounter
--- OUTSIDE RECORDS SUMMARY | 2023-10-20 11:52 | XMS_ITS | Encounter Summary ---
[place] [address] Care Team Providers Care Sales Director Name Role Phone Lolly Oliveira MD Primary Care Provider [phone] Encounter Details Date Type Department Care Team [...] AM EST Hospital Encounter Non-Invasive [place] [address] Arrived documented as of this encounter Visit Diagnoses Not on filedocumented in this encounter Care Teams Sales Director Relationship Specialty Start Date End Date Lolly Oliveira MD [address] [place] [address] PCP - General 07/17/13 documented as of this encounter
--- OUTSIDE RECORDS SUMMARY | 2023-10-20 11:52 | XMS_ITS | Encounter Summary ---
[place] [address] Care Team Providers Care Drill Instructor Name Role Phone Lolly Oliveira MD Primary Care Provider [phone] Encounter Details Date Type Department Care Team [...] AM EST Hospital Encounter Non-[place] [address] Arrived documented as of this encounter Visit Diagnoses Not on filedocumented in this encounter Care Teams Drill Instructor Relationship Specialty Start Date End Date Lolly Oliveira MD [address] [place] [address] PCP - General 07/17/13 documented as of this encounter
--- OUTSIDE RECORDS SUMMARY | 2023-10-20 11:52 | XMS_ITS | Encounter Summary ---
Author Organization [facility] [address] Care Team Providers Care Paper Machine Tender Name Role Phone Lolly Oliveira MD Primary Care Provider [phone] Encounter Details Date Type Department Care Team (Late Contact Info) Description 01/14/2022 Telephone Dermatology at [address] [address] Nora Meredith LPN Social History [...] return to phototherapy. New order sent to [facility]. Reviewed with patient Dr. Mar recommendation. She agrees with plan of care. Advised patient order will be sent to [facility]. She voiced understanding. documented in this encounter Plan of Treatment Upcoming Encounters Date Type Department Care Team (Late Contact Info) Description 01/16/2024 10:00 AM EST Hospital Encounter Non-[place] [address] Arrived documented as of this encounter Visit Diagnoses Not on filedocumented in this encounter Care Teams Paper Machine Tender Relationship Specialty Start Date End Date Lolly Oliveira MD [address] [place] [address] PCP - General 07/17/13 documented as of this encounter
--- OUTSIDE RECORDS SUMMARY | 2023-10-20 11:52 | XMS_ITS | Encounter Summary ---
Author Organization [facility] [place] [address] Care Team Providers Care General Counsel Name Role Phone Lolly Oliveira MD Primary Care Provider [phone] Encounter Details Date Type Department Care Team (Latest Contact Info) Description 07/26/2013 9:44 AM EDT - 07/26/2013 11:59 PM EDT Hospital [place] [phone] CLINIC, Lolly So MD [address] [place], [place] [id number] Mammographic microcalcification Discharge Disposition: Home Social History [...] AM EST Hospital Encounter Non-Invasive [place] [address] Arrived documented as of this encounter Procedures [...] are present on specimen digital X-ray. A Needl-Stereo 13 Cylinder marker clip was placed. Cranio-caudal [...] mLs documented in this encounter Care Teams General Counsel Relationship Specialty Start Date End Date Lolly Oliveira MD [address] [place] [address] PCP - General 07/17/13 documented as of this encounter
--- OUTSIDE RECORDS SUMMARY | 2023-10-20 11:52 | XMS_ITS | Encounter Summary ---
Author Organization [facility] Address [facility] [place] [address] Care Team Providers Care Body Wirer Name Role Phone Lolly Oliveira MD Primary Care Provider [phone] Encounter Details Date Type Department Care Team (Late st Contact Info) Description 11/11/2022 Orders Only Cardiology at [address] [phone] Lalit Mcmahon MD [facility] [place] [address] Nonischemic cardiomyopathy Social History Tobacco Use Types Packs/Day Years Used Date Smoking Tobacco: Never Alcohol Use Standard Drinks/Week Comments Not Currently 0 (1 standard drink = 0.6 oz pur e alcohol) [facility] Inpatient Questions Answer Date Recorded [...] st Contact Info) Description 01/16/2024 10:00 AM [facility] Hospital Encounter [place] [address] Arrived documented as of this encounter Visit Diagnoses Diagnosis Nonischemic cardiomyopathy Other primary cardiomyopathies documented in this encounter Care Teams Body Wirer Relationship Specialty Start Date End Date Berrian, Lolly M, MD [address] [place] [address] PCP - General 07/17/13 documented as of this encounter
--- OUTSIDE RECORDS SUMMARY | 2023-10-20 11:52 | XMS_ITS | Encounter Summary ---
Author Organization [facility] [place] [address] Care Team Providers Care Inspector Soldering Name Role Phone Lolly Oliveira MD Primary Care Provider [phone] Encounter Details Date Type Department Care Team (Latest Contact Info) Description 10/23/2022 10:00 AM EDT - 10/23/2022 11:59 PM EDT Hospital Encounter Non-[place] [address] Discharge Disposition: Home Social History Tobacco Use [...] with spacer fluticasone propionate (Flonase) 50 mcg/actuation [place], Suspension 1 spray by Each Nare route [...] st Contact Info) Description 01/16/2024 10:00 AM [facility] Hospital Encounter Non-[place] [address] Arrived documented as of this [...] on filedocumented in this encounter Care Teams Inspector Soldering Relationship Specialty Start Date End Date Lolly Oliveira MD [address] [place] [address] PCP - General 07/17/13 documented as of this encounter
--- OUTSIDE RECORDS SUMMARY | 2023-10-20 11:52 | XMS_ITS | Encounter Summary ---
Author Organization [facility] [address] Care Team Providers Care Mine Car Dispatcher Name Role Phone Lolly Oliveira MD Primary Care Provider [phone] Reason for Visit * Reason Onset Date Comments Pre Procedure Call 07/01/2022 Encounter Details Date Type Department Care Team (Late st Contact Info) Description 07/01/2022 Telephone Cardiology at [address] [phone] Rosenda Sutton RN Pre Procedure Call Social History Tobacco Use Types Packs/Day Years Used Date Smoking Tobacco: Never Sex and Gender Information Value Date Recorded Sex Assigned at Not on file Gender Identity Not on file Sexual Orientation Not on file documented as of this encounter Miscellaneous Notes * Telephone Encounter - Rosenda Sutton RN - 07/01/2022 9:30 AM EDTSummary: Pre Procedure Call: TOOL GRINDER OPERATOR SURFACE implant EP STEEL SASH ERECTOR COORDINATION CHECKLIST Patient Name: Luna Mott Patient Performing Effervescent Salts Compounder: Lalit Mcmahon Referring Provider: Lolly Oliveira Date of Procedure: 07/23/22 Arrival Time/ Case Time: 12:00 pm / 1:00 pm Check In Location: [facility] 4W Date Patient was Called: 07/01/22 Procedure: TOOL GRINDER OPERATOR SURFACE Company: [employer] Type: TOOL GRINDER OPERATOR SURFACE-D Laterality: LEFT Orders: Yes Lab Orders: Yes [...] overnight , understands that they will need road oiling truck driver on day of discharge Notified pt that Goff catheter may be placed on day of procedure depending on type & duration of case. documented in this encounter Plan of Treatment Upcoming Encounters Date Type Department Care Team (Late st Contact Info) Description 01/16/2024 10:00 AM [facility] Hospital Encounter Non-[place] [address] Arrived documented as of this encounter Visit Diagnoses Not on filedocumented in this encounter Care Teams Mine Car Dispatcher Relationship Specialty Start Date End Date Lolly Oliveira MD [address] [place] [address] PCP - General 07/17/13 documented as of this encounter
--- OUTSIDE RECORDS SUMMARY | 2023-10-20 11:52 | XMS_ITS | Encounter Summary ---
Author Organization [facility] [place] [address] Care Team Providers Care Rn Transition Name Role Phone Lolly Oliveira MD Primary Care Provider [phone] Encounter Details Date Type Department Care Team (Late st Contact Info) Description 11/16/2022 Telephone Cardiology at [address] [phone] Luna Rousseau, RN Social History Tobacco Use Types Packs/Day Years Used Date Smoking Tobacco: Never Alcohol Use Standard Drinks/Week Comments Not Currently 0 (1 standard drink = 0.6 oz pur e alcohol) [facility] Inpatient Questions Answer Date Recorded Does Anyone [...] BP today was 118/57 at CR at [facility]. Pt is going twice a week to [...] st Contact Info) Description 01/16/2024 10:00 AM [facility] Hospital Encounter Non-Invasive [place] [address] Arrived documented as of this encounter Visit Diagnoses Not on filedocumented in this encounter Care Teams Rn Transition Relationship Specialty Start Date End Date Lolly Oliveira MD [address] [place] [address] PCP - General 07/17/13 documented as of this encounter
--- OUTSIDE RECORDS SUMMARY | 2023-10-20 11:52 | XMS_ITS | Encounter Summary ---
Author Organization [facility] [place] [address] Care Team Providers Care Hydraulic Tester Name Role Phone Lloly Oliveira MD Primary Care Provider [phone] Reason for Referral * Diagnostic Test (Routine) - Closed Specialty Diagnoses / Procedures Referred By Contac t Referred To Contact Radiology Diagnoses Left bundle branch block Nonischemic cardiomyopathy Procedures MRI Cardiac Morphology Function With Flow Velocity Quantification [facility] Contrast MRI Cardiac Morphology Function wwo Contrast Lalit Mcmahon MD [facility] [place] [address] [place] [address] Referral ID Status Reason Start Date Expiration Date V isits Requested Visits Authorized [id number] Closed Specialty Service Requested 05/06/2022 11/07/2023 2 1 Reason for Visit * Diagnostic Test (Routine) - Closed Specialty Diagnoses / Procedures Referred By Contac t Referred To Contact Radiology Diagnoses Left bundle branch block Nonischemic cardiomyopathy Procedures MRI Cardiac Morphology Function With Flow Velocity Quantification o Contrast MRI Cardiac Morphology Function wwo Contrast Lalit Mcmahon MD [facility] [place] [address] [place] [address] Referral ID Status Reason Start Date Expiration Date V isits Requested Visits Authorized [id number] Closed Specialty Service Requested 05/06/2022 11/07/2023 2 1 Encounter Details Date Type Department Care Team (Latest Contact Info) Description 07/14/2022 9:08 AM EDT Hospital Encounter MRI at [facility] [place] [phone] Lalit Mcmahon MD [facility] [address] [place] [address] Left bundle branch block; Nonischemic cardiomyopathy Discharge [...] with spacer fluticasone propionate (Flonase) 50 mcg/actuation [place], Suspension 1 spray by Each Nare route [...] Lyle El [facility] [address] Female [phone] (home) No relevant phone numbers on file. Lolly Oliveira MD None Allergies Allergen Reactions ??? Sulfa (Sulfonamide Antibiotics) Date/Time of call: July 07, 2022/11:03 AM/ PREVIOUS MRI SCAN? HEIGHT: WEIGHT: SCHEDULED SCAN: MRI CARDIAC MORPHOLOGY FUNCTION WITH FLOW VELOCITY QUANTIFICATION WWO CONTRAST [[id number]] Order Questions Answers Where will study be performed? [facility] Radiology [120] SUBJECTIVE: Very Claustrophobic CAN [...] ( [place] ) You must have a independent driver present when you check in. This patient has been informed that they require a independent driver to drive them home after this procedure. In the absence of a independent driver, IR will not be able to sedate for your scan. Pt verbalized understanding of these instructions during the pre-procedure education via phone. Yes Name of independent driver: Daughter Phone number: PRIOR SCAN DATE/S SEDATION TYPE SUCCESSFUL 07/14/22 MRI Cardiac Morphology Function with Flow Velocity Quantification wwo Contrast Ativan 1mg x 1 dose Pass Revised 08/03/17 documented in this encounter Plan of Treatment Upcoming Encounters Date Type Department Care Team (Late st Contact Info) Description 01/16/2024 10:[address] [facility] Hospital Encounter Non[place] [address] Arrived documented as of this encounter Procedures [...] who have questions please contact the health career services director that requested your imaging first. ? Narrative [...] patients who have questions please contactthe health career services director that requested your imaging first. Lalit Mcmahon [...] mg documented in this encounter Care Teams Hydraulic Tester Relationship Specialty Start Date End Date Lolly Oliveira MD [address] [place] [address] PCP - General 07/17/13 documented as of this encounter
--- OUTSIDE RECORDS SUMMARY | 2023-10-20 11:52 | XMS_ITS | Encounter Summary ---
[place] [address] Care Team Providers Care Lamina Searcher Name Role Phone Lolly Oliveira MD Primary Care Provider [phone] Encounter Details Date Type Department Care Team (Late st Contact Info) Description 04/09/2022 Refill Dermatology at [address] [address] Nora Meredith, FIBERGLASS LAMINATOR Social History Tobacco Use Types Packs/Day Years Used Date Smoking Tobacco: Never Sex and Gender Information Value Date Recorded Sex Assigned at Not on file Gender Identity Not on file Sexual Orientation Not on file documented as of this encounter Plan of Treatment Upcoming Encounters Date Type Department Care Team (Late st Contact Info) Description 01/16/2024 10:00 AM [facility] Hospital Encounter Non-[place] [address] Arrived documented as of this encounter Visit Diagnoses Not on filedocumented in this encounter Care Teams Lamina Searcher Relationship Specialty Start Date End Date Lolly Oliveira MD [address] [place] [address] PCP - General 07/17/13 documented as of this encounter
--- OUTSIDE RECORDS SUMMARY | 2023-10-20 11:52 | XMS_ITS | Encounter Summary ---
Author Organization [facility] Address [facility] [place] [address] Care Team Providers Care Technical Sales Manager Name Role Phone Lolly Oliveira MD Primary Care Provider [phone] Encounter Details Date Type Department Care Team (Late st Contact Info) Description 01/29/2023 Notes Only Cardiology at [address] [address] Merle Lin PA [facility] [place] [address] Social History Tobacco Use Types Packs/Day Years Used Date Smoking Tobacco: Never Alcohol Use Standard Drinks/Week Comments Not Currently 0 (1 standard drink = 0.6 oz pur e alcohol) [facility] Inpatient Questions Answer Date Recorded Does [...] pdf document Date of transmission: 01/29/2023 Device presales senior specialist: BSI Device type: BLOCK OUT MACHINE OPERATOR-D Presenting rhythm: /RVP/LVP AP 21% Right CONNECTION WORKER 100% Left CONNECTION WORKER: 100% Battery: 10.5 years [employer] Index rising in setting of increasing S3 intensity, increasing respiratory rate, increasing night heart rate, and increasing mean heart rate. MICKEY Villa 01/29/2023 9:06 AM documented in this encounter Plan of Treatment Upcoming Encounters Date Type Department Care Team (Late st Contact Info) Description 01/16/2024 10:00 AM EST Hospital Encounter Non-Invasive [place] [address] Arrived documented as of this encounter Visit Diagnoses Not on filedocumented in this encounter Care Teams Technical Sales Manager Relationship Specialty Start Date End Date Lolly Oliveira MD [address] [place] [address] PCP - General 07/17/13 documented as of this encounter
--- OUTSIDE RECORDS SUMMARY | 2023-10-20 11:52 | XMS_ITS | Encounter Summary ---
Author Organization [facility] [place] [address] Care Team Providers Care Nurse Researcher Name Role Phone Unavailable Primary Care Provider Unavailabl e Encounter Details Date Type Department Care Team (Late st Contact Info) Description 07/14/2013 [place] [phone] Eleno Christian MD [facility] [place] [address] Social History Tobacco Use Types Packs/Day Years [...] AM EST Hospital Encounter Non-[place] [address] Arrived documented as of this encounter Visit Diagnoses Not on filedocumented in this encounter
--- OUTSIDE RECORDS SUMMARY | 2023-10-20 11:52 | XMS_ITS | Encounter Summary ---
Author Organization [place] [address] Care Team Providers Care Electrical Mechanic Name Role Phone Lolly Oliveira MD Primary Care Provider [phone] Encounter Details Date Type Department Care Team (Late st Contact Info) Description 04/01/2021 3:30 PM EST Office Visit Dermatology at [address] [phone] Clay Ramírez MD [address], [place] [address] Psoriasis, guttate Social History Tobacco Use Types [...] AM EST Hospital Encounter Non-[place] [address] Arrived documented as of this encounter Visit Diagnoses Diagnosis Psoriasis, guttate Other psoriasis documented in this encounter Care Teams Electrical Mechanic Relationship Specialty Start Date End Date Lolly Oliveira MD [address] [place] [address] PCP - General 07/17/13 documented as of this encounter
--- OUTSIDE RECORDS SUMMARY | 2023-10-20 11:52 | XMS_ITS | Encounter Summary ---
Author Organization Formerly [facility] [place] [address] Care Team Providers Care Delicatessen Clerk Name Role Phone Lolly Oliveira MD Primary Care Provider [phone] Reason for Visit * Auth/Cert (Routine) Specialty Diagnoses / Procedures Referred By Contac t Referred To Contact Diagnoses Left bundle-branch block, unspecified Other cardiomyopathies Left bundle branch block [I44.7]Nonischemic cardiomyopathy [I42.8] Procedures PRG CATH PLMT LEFT HEART CATH & ARTS W/INJ & ANGIO IMG S&I ELECTROPHYSIOLOGY PROCEDURE Lalit Mcmahon MD [facility] [address] [facility] Referral ID Status Reason Start Date Expiration Date Visits Re quested Visits Authorized [id number] 1 1 Encounter Details Date Type Department Care Team (Late st Contact Info) Description 07/23/2022 1:00 PM EDT - 07/23/2022 5:30 PM EDT Surgery [place] [address] Lalit Mcmahon MD [facility] [address] ELECTROPHYSIOLOGY PROCEDURE Social History Tobacco Use Types Packs/Day Years Used Date Smoking Tobacco: Never Tobacco Cessation:Counseling Given: Not Answered Alcohol Use Standard Drinks/Week Comments Not Currently 0 (1 standard drink = 0.6 oz pur e alcohol) [facility] Inpatient Questions Answer Date Recorded [...] Luna Mott Patient Age: 71 y.o. Language: Malay Race: White Ethnicity: Not nor Admit date: 07/23/2022 Discharge date and time: 07/24/22 Attending Physician: Lalit Mcmahon MD Discharge Physician: Lalit Mcmahon MD Follow-up Recommendations for Providers: - s/p PADDING GLUER-D implant - post implant QRS 130 ms - reviewed post-implant instructions - no medication changes - Follow up in device clinic for wound/device check in ~10 days ([facility]) Inpatient Provider Contact Information: Cardiac Electrophysiology - Discharge Diagnoses (Hospital Problems) and Secondary Diagnoses (Chronic Problems): Active Hospital Problems Diagnosis ??? HFrEF (heart failure with reduced ejection fraction) Resolved Hospital Problems No resolved problems to display. Active Non-Hospital Problems Diagnosis ??? Dermatofibroma ??? Nevus ??? Solar lentigo Operations/Major Procedures: 07/23/22: [facility] PADDING GLUER-D implant History of Presentation: 71 y.o. female with a history of HFrEF, LBBB, QRS >150, NYHA II who is POD#1 of PADDING GLUER-D implant ([employer]). Hospital Course: Elective admission for PADDING GLUER-D implant Admitted post-implant for pain management, telemetry [...] (heart failure with reduced ejection fraction) [I50.20] PADDING GLUER-D implant Admission Condition: good Indication for Admission: [...] g Refills: 3 fluticasone propionate 50 mcg/actuation [place], Suspension Commonly known as: Flonase 1 spray [...] the incision. Make sure to use a boil off machine operator cloth (such as a towel) in between the [...] F. The office scheduling phone number is [phone]. ARM MOVEMENT RESTRICTIONS POST-IMPLANT - Do not [...] please call the Cardiac ElectrophysiologyTriage Nurse at [phone], option 3. General Instructions None Discharge References/Attachments None Lalit Mcmahon MD S Cardiac Electrophysiology 07/24/2022 12:33 PM documented in this encounter Discharge Instructions * Patient Instructions* Fadi Nunez MD - 07/24/2022 8:10 AM EDT FINAL ICD/PACEMAKER RECOMMENDATIONS: 1. Standard post implant discharge instructions (see below): 2. Medications as listed above. You may use ice packs over the incision. Make sure to use a boil off machine operator cloth (such as a towel) in between the [...] F. The office scheduling phone number is [phone]. ARM MOVEMENT RESTRICTIONS POST-IMPLANT - Do not [...] please call the Cardiac ElectrophysiologyTriage Nurse at [phone], option 3. documented in this encounter Medications [...] with spacer fluticasone propionate (Flonase) 50 mcg/actuation [place], Suspension 1 spray by Each Nare route [...] Cardiac Electrophysiology Post-Implant Device Interrogation Luna Mott [id number] 07/24/2022 History: Luna Mott is a 71 y.o. female with a history of HFrEF, LBBB, QRS >150, NYHA II who is POD#1 of PADDING GLUER-D implant ([employer]). Overall feels well this morning. Ready [...] WOB Neuro- A&Ox3 Device Interrogation: Data ?? Rough Rib Grader Model # Serial # Generator [employer] [id number] Atrial Lead [employer] [id number] [id number] RV Lead [employer] 0672 [id number] LV Lead [employer] [id number] [id number] ?? Diagnostics Pacing Mode: DDD 60-130 Underlying Rhythm: [place] Atrial Episodes: None Ventricular Episodes: None FINAL PROGRAMMING: Pacing: Mode Lower rate (ppm) Upper rate (ppm) ?? DDD 60 130 VF: Rate (bpm) #Antitachycardia pacing First shock energy (J) ?? 200 Quick convert 41 VT: 170 Monitor only Monitor only ? Battery and Leads Impedances (ohms) Sensing (mV) Thresholds HV RA RV LV RA RV LV RA RV LV 73 140 336 9430 (LVa) 7.7 13.1 >25 0.4V @ 0.4 ms 0.4V @ 0.4 ms 0.5 V @ 1.0 ms POD#1 CXR: All leads in nominal positioning Impression: 71 y.o. female who is s/p PADDING GLUER-D implant for LBBB, NYHA II, HFrEF. - Appropriate device function post-implant - CXR negative for post-implant complications - Changed sensed AV delay from 130 to 110 Plan: 1. Reviewed standard post-implant discharge instructions (see patient instructions) including arm restrictions, wound care, bathing, and driving 2. No medication changes. 3. Follow up in device clinic for wound/device check in ~10 days ([facility]) Fadi Nunez MD 07/24/2022 Pager: [phone] I met with the patient today and [...] agreement. ? Dr. Lalit Mcmahon, electrophysiology attending ([id number]) * Zaria Wright RN - 07/23/2022 8:28 [...] HF, QRS > 150 ms presents for PADDING GLUER-D placement. ROS: Denies recent fevers or chills [...] 0.9) flush 5 mL 5 mL Intravenous [id number] ramos MD ??? sodium chloride 0.9 % [...] HF, QRS > 150 ms presents for PADDING GLUER-D placement. Backup would be LBBAP lead. Antibiotics: cefazolin Rationales for, intended benefits and potential risk of planned procedures reviewed. The patient indicated understanding and agreement with the plan. Informed consent signed. Procedure checklist completed. Fadi Nunez MD Cardiac Electrophysiology Fellow [facility] Pager [phone] 07/23/2022 I met with the patient today [...] agreement. ? Dr. Lalit Mcmahon, electrophysiology attending ([id number]) documented in this encounter Miscellaneous Notes * Brief Op Note - Lalit Mcmahon MD - 07/23/2022 4:04 PM EDT Brief Operative Note Patient Name: Luna Mott : [id number] MR#: [id number] Case Date: 07/23/2022 Surgeon: Surgeon(s) and Role: [...] AM EST Hospital Encounter [place] [address] Arrived Scheduled Orders Name Type Priority Associated Diagnoses Orde r Schedule EKG 12 Lead ECG Routine Cardiac resynchronization therapy defibrillator (PADDING GLUER-D) in place One Time for 1 Occurrences [...] (Bezet) 522 ms MUSE SYSTEM Calculated R Bowler 78 degrees MUSE SYSTEM Calculated T Bowler -71 degrees MUSE SYSTEM INTERPRETATION AV dual-paced [...] who have questions please contact the health care team assistant that requested your imaging first. ? Electronically signed by: Kwame Vargas MD, [facility] ([phone]), at 07/24/2022 6:43 AM Narrative 07/24/2022 6:43 [...] patients who have questions please contactthe health care team assistant that requested your imaging first. Electronically signed by: Kwame Vargas MD, [facility]([phone]), at 07/24/2022 6:43 AM Lalit Mcmahon MD IMG DX ORDERABLES * ELECTROPHYSIOLOGY PROCEDURE (07/23/2022 1:11 PM EDT) Anatomical Region Laterality Modality Other Narrative 07/23/2022 4:24 PM EDT Table formatting from the original result was not included. BIVENTRICULAR ICD IMPLANTATION Acquisition Specialist: Lalit Mcmahon MD Fellow: Fadi Nunez MD [...] lateral branch of the CS in the GERMAN view. This branch was cannulated with a [...] the entire procedure. LEAD AND GENERATOR DATA: Rough Rib Grader Model # Serial # Generator [employer] [id number] Atrial Lead [employer] 7841 [id number] RV Lead [employer] 0672 [id number] LV Lead [employer] [id number] PACE/SENSE DATA: Sensed wave (mV) Threshold (V) [...] (cGycm2) 300 CONCLUSIONS: Successful implantation of a [employer] biventricular ICD for primary prevention and treatment of symptoms related to congestive heart failure. Follow up in EP clinic in 1-2 months. Procedures performed: new ICD system ( cpt 87689-K5); implant LV lead at time of ICD insertion (cpt 80160) I have read, edited and approve of this report: Lalit Mcmahon MD [facility] Cardiac Electrophysiology 07/23/2022 4:22 PM Procedure Note Lalit Mcmahon MD - 07/23/2022 BIVENTRICULAR ICD IMPLANTATION Acquisition Specialist: Lalit Mcmahon MD Fellow: Fadi Nunez MD [...] appropriate lateralbranch of the CS in the GERMAN view. This branch was cannulated with a [...] in the entireprocedure. LEAD AND GENERATOR DATA: Rough Rib Grader Model # Serial # Generator [employer] [id number] Atrial Lead [employer] 7841 [id number] RV Lead [employer] 0672 [id number] LV Lead [employer] 4674 [id number] PACE/SENSE DATA: Sensed wave (mV) Threshold (V) [...] (cGycm2) 300 CONCLUSIONS: Successful implantation of a [employer] biventricular ICD forprimary prevention and treatment of symptoms related to congestive heartfailure. Follow up in EP clinic in 1-2 months. Procedures performed: new ICD system ( cpt 08911-X1); implant LV lead attime of ICD insertion (cpt 50085) I have read, edited and approve of this report: Lalit Mcmahon MD S Cardiac Electrophysiology 07/23/2022 4:22 PM Lalit Mcmahon MD EP PROCEDURE ORDERAB LES * POCT Glucose (07/23/2022 12:54 PM EDT) [facility] Signature Glucose, POC 83 65 - 199 mg/dL [facility] Comment: Supplemental ranges: <140 mg/dL before meals <180 mg/dL all other times of the day Blood 07/23/2022 12:5 4 PM EDT 07/23/2022 12:54 PM EDT Lalit Mcmahon MD POINT OF CARE TEST O RDERABLES Performing Organization Address City/[facility]/ZIP Co de Phone Number [facility] [place] [address] * EKG 12 Lead (07/23/2022 12:33 PM EDT) Ventricular rate 72 BPM MUSE SYSTEM Atrial Rate 72 BPM MUSE SYSTEM P-R Interval 158 ms MUSE SYSTEM QRS Duration 176 ms MUSE SYSTEM Q-T Interval 458 ms MUSE SYSTEM QTC Calculated (Bezet) 501 ms MUSE SYSTEM Calculated P Bowler 34 degrees MUSE SYSTEM Calculated R Bowler 12 degrees MUSE SYSTEM Calculated T Bowler -173 degrees MUSE SYSTEM INTERPRETATION Normal sinus rhythm Left bundle branch block Abnormal ECG No previous ECGs available Confirmed by MD Salome, Lalit ([id number]) on 07/23/2022 1:19:03 PM MUSE SYSTEM 07/23/2022 12:3 3 PM EDT 07/23/2022 1:19 PM EDT Lalit Mcmahon MD ECG ORDERABLES Performing Organization Address [facility]/ZIP Co de Phone Number MUSE SYSTEM * Differential, Automated (07/23/2022 11:55 AM EDT) Neutrophil % 62.6 % [facility] Neutrophil Absolute 4.14 1.70 - 6.10 x10(3)/[facility] LAB[facility] Lymph % 27.0 % [facility] Lymphocytes Abs 1.8 0.9 - 3.2 x10(3)/[facility] LAB[facility] Monocyte % 7.3 % [facility] Monocyte Abs 0.5 0.3 - 0.9 x10(3)/[facility] LAB[facility] Eos % 2.3 % [facility] Eosinophils Abs 0.2 0.0 - 0.4 x10(3)/[facility] LAB[facility] Basophil % 0.6 % [facility] Baso Absolute 0.0 0.0 - 0.1 x10(3)/[facility] LABORATORY Immature Gran % 0.20 % [facility] Comment: Immature granulocytes(IG's)percentage and absolute count will include metamyelocytes, myelocytes, and promyelocytes. Blood smears from CBCs yielding IG's will be scanned manually for concordance. If this scan disagrees with the automated IG or if promyelocytes are noted, a manual differential will be performed. Immature Gran Absolute 0.01 0.00 - 0.04 x10(3)/[facility] Blood 07/23/2022 11:5 5 AM EDT 07/23/2022 12:07 PM EDT Narrative Resulting Agency Comment Spec In Lab Lalit Mcmahon MD HEMATOLOGY ORDERABLE S [facility] [place] [address] * Hemogram (07/23/2022 11:55 AM EDT) White Blood Cell 6.6 4.0 - 9.5 x10(3)/[facility] LAB[facility] Red Blood Cell 4.50 4.00 - 5.21 x10(6)/[facility] Hemoglobin 13.7 11.7 - 15.5 g/dL [facility] Hematocrit 42.5 35.7 - 45.8 % [facility] Mean Cell Volume 94.4 82.6 - 94.4 fL [facility] Mean Cell Hemoglobin 30.4 27.1 - 32.0 pg [facility] Mean Cell Hemoglobin Concentration 32.2 31.7 - 35.0 g/dL [facility] Platelet 193 145 - 357 x10(3)/[facility] LAB[facility]ATORY RDW Standard Deviation 45.5 37.0 - 46.0 fL [facility] RDW coefficient of variation 13.2 11.5 - 14.1 % [facility] Mean Platelet Volume 9.5 7.6 - 12.9 fL [facility] NRBC% auto 0.0 % [facility] NRBC Absolute 0.000 0.000 - 0.000 x10(3)/[facility] Blood 07/23/2022 11:5 5 AM EDT 07/23/2022 12:07 PM EDT Narrative Resulting Agency Comment Spec In Lab Lalit Mcmahon MD HEMATOLOGY ORDERABLE S [facility] [place] [address] * (ABNORMAL) BMP w/fasting Glucose (07/23/2022 11:55 AM EDT) Glucose Fasting 110(H) 65 - 99 mg/dL [facility] Comment: ?Fasting* Glucose Interpretive Criteria Normal [...] of Diabetes Mellitus, Position Statement from the [place] [employer]. ??Diabetes Care, Volume 33, Supplement 1, Mar 2009 Blood Urea Nitrogen 23(H) 8 - 18 mg/dL [facility] Creatinine 1.07 0.70 - 1.20 mg/dL [facility] Sodium 141 135 - 145 mmol/L [facility] Potassium 4.8 3.5 - 5.0 mmol/L [facility] Comment: Please note: ??Patients with WBC >100,000 may have falsely elevated Potassium levels. ??For accurate Potassium quantification in these patients send serum separator tube (gold top) for subsequent determinations. ??Contact the Clinical Chemistry Laboratory if there are any questions. Chloride 106 98 - 107 mmol/L [facility] Carbon Dioxide 26 22 - 31 mmol/L [facility] Anion Gap 9 5 - 15 mmol/L [facility] Calcium 9.7 8.5 - 10.5 mg/dL [facility] Est Glomerular Filtration Rate 55(L) >=60 mL/min/1. 73 m?? [facility] Comment: This patient's estimated [...] Mcmahon MD CHEMISTRY ORDERABLES Performing Organization Address [facility] Co de Phone Number [facility] [place] [address] * Prothrombin Time (07/23/2022 11:55 AM EDT) Prothrombin Time 11.7 9.4 - 12.5 sec [facility] International Normalization Ratio 1.0 [facility] Comment: An INR <2.0 indicates adequate [...] MD HEMATOLOGY ORDERABLE S Performing Organization Address City/[facility] Co de Phone Number [facility] [place] [address] documented in this encounter Visit Diagnoses Diagnosis HFrEF (heart failure with reduced ejection fraction)- Primary Left bundle branch block Other left bundle branch block Nonischemic cardiomyopathy Other primary cardiomyopathies Cardiac resynchronization therapy defibrillator (PADDING GLUER-D) in place Left bundle branch block Other [...] Routine documented in this encounter Care Teams Delicatessen Clerk Relationship Specialty Start Date End Date Lolly Oliveira MD [address] [place] [address] PCP - General 07/17/13 documented as of this encounter
--- OUTSIDE RECORDS SUMMARY | 2023-10-20 11:52 | XMS_ITS | Encounter Summary ---
[place] [address] Care Team Providers Care Group Home Manager Name Role Phone Lolly Oliveira MD Primary Care Provider [phone] Encounter Details Date Type Department Care Team [...] AM EST Hospital Encounter Non[place] [address] Arrived documented as of this encounter Visit Diagnoses Not on filedocumented in this encounter Care Teams Group Home Manager Relationship Specialty Start Date End Date Lolly Oliveira MD [address] [place] [address] PCP - General 07/17/13 documented as of this encounter
--- OUTSIDE RECORDS SUMMARY | 2023-10-20 11:52 | XMS_ITS | Encounter Summary ---
Author Organization [facility]ly [facility] [place] [address] Care Team Providers Care Stacking Machine Operator Name Role Phone Unavailable Primary Care Provider Unavailabl e Encounter Details Date Type Department Care Team (Late st Contact Info) Description 07/14/2013 External Results XRay at [address] [place] [address] Provider, Scanning Social History Tobacco Use Types [...] AM EST Hospital Encounter Non-Invasive Cardiology Lab [facility] [place] [address] Arrived documented as of this encounter Procedures [...]
--- OUTSIDE RECORDS SUMMARY | 2023-10-20 11:52 | XMS_ITS | Encounter Summary ---
Author Organization [place] [address] Care Team Providers Care Sewing Machine Operator Zipper Name Role Phone Lolly Oliveira MD Primary Care Provider [phone] Encounter Details Date Type Department Care Team (Latest Contact Info) Description 07/26/2013 9:45 AM EDT - 07/26/2013 11:59 PM EDT Hospital [place] [address] Mammographic microcalcification Social History Tobacco Use Types [...] AM EST Hospital Encounter Non-[place] [address] Arrived documented as of this encounter Procedures [...] microcalcification documented in this encounter Care Teams Sewing Machine Operator Zipper Relationship Specialty Start Date End Date Lolly Oliveira MD [address] [place] [address] PCP - General 07/17/13 documented as of this encounter
--- OUTSIDE RECORDS SUMMARY | 2023-10-20 11:52 | XMS_ITS | Encounter Summary ---
[place] [address] Care Team Providers Care Embryology Teacher Name Role Phone Lolly Oliveira MD Primary Care Provider [phone] Encounter Details Date Type Department Care Team (Late st Contact Info) Description 07/17/2013 [place] [address] Lolly Oliveira MD [address] [place], [place] [id number] Social History Tobacco Use Types Packs/Day Years [...] AM EST Hospital Encounter Non-[place] [address] Arrived documented as of this encounter Procedures Procedure Name Priority Date/Time Associated Diagnosis Comments REQUEST FOR 2ND READ MAMMO Routine 07/17/2013 8:45 AM EDT documented in this encounter Results * Request for 2nd read Mammo (07/17/2013 8:45 AM EDT) Anatomical Region Laterality Modality Other 07/17/2013 8:45 AM EDT Narrative 07/17/2013 3:57 PM EDT INTERPRETATION OF OUTSIDE MAMMOGRAMS (PERFORMED ON 07/06/13 AND 07/14/13) FROM [facility] DATED 07/17/13: ?? DIAGNOSTIC IMAGING [...] OUTSIDE MAMMOGRAMS (PERFORMED ON 07/06/13 AND 07/14/13) [facility] DATED 07/17/13: DIAGNOSTIC IMAGING SUMMARY: [...] on filedocumented in this encounter Care Teams Embryology Teacher Relationship Specialty Start Date End Date Lolly Oliveira MD [address] [place] [address] PCP - General 07/17/13 documented as of this encounter
--- OUTSIDE RECORDS SUMMARY | 2023-10-20 11:52 | XMS_ITS | Encounter Summary ---
Author Organization [facility] [place] [address] Care Team Providers Care Legal Transcriber Name Role Phone Lolly Oliveira MD Primary Care Provider [phone] Reason for Referral * Diagnostic Test (Routine) - Closed Specialty Diagnoses / Procedures Referred By Contac t Referred To Contact Radiology Diagnoses Left bundle branch block Nonischemic cardiomyopathy Procedures MRI Cardiac Morphology Function With Flow Velocity Quantification wwo Contrast MRI Cardiac Morphology Function wwo Contrast Lalit Mcmahon MD [facility] [place] [address] [place] [address] Referral ID Status Reason Start Date Expiration Date V isits Requested Visits Authorized [id number] Closed Specialty Service Requested 05/06/2022 11/07/2023 2 1 Encounter Details Date Type Department Care Team (Late st Contact Info) Description 05/06/2022 Orders Only Cardiology at [address] [address] Lalit Mcmahon MD [facility] [place] [address] Left bundle branch block; Nonischemic cardiomyopathy Social [...] AM EST Hospital Encounter Non-[place] [address] Arrived documented as of this encounter Results [...] who have questions please contact the health patient care director that requested your imaging first. ? [...] patients who have questions please contactthe health patient care director that requested your imaging first. Lalit Mcmahon MD IMG MRI ORDERABLES documented in this encounter Visit Diagnoses Diagnosis Left bundle branch block Other left bundle branch block Nonischemic cardiomyopathy Other primary cardiomyopathies Left bundle branch block Other left bundle branch block Nonischemic cardiomyopathy Other primary cardiomyopathies documented in this encounter Care Teams Legal Transcriber Relationship Specialty Start Date End Date Lolly Oliveira MD [address] [place] [address] PCP - General 07/17/13 documented as of this encounter
--- OUTSIDE RECORDS SUMMARY | 2023-10-20 11:52 | XMS_ITS | Encounter Summary ---
Author Organization [facility] [place] [address] Care Team Providers Care Pricer Bagger Name Role Phone Lolly Oliveira MD Primary Care Provider [phone] Encounter Details Date Type Department Care Team (Late st Contact Info) Description 10/09/2021 Telephone Dermatology at [address] [address] Nora Meredith LPN Social History [...] Description 01/16/2024 10:[address] [facility] Hospital Encounter Non-Invasive [place] [address] Arrived documented as of this encounter Visit Diagnoses Not on filedocumented in this encounter Care Teams Pricer Bagger Relationship Specialty Start Date End Date Lolly Oliveira MD [address] [place] [address] PCP - General 07/17/13 documented as of this encounter
--- OUTSIDE RECORDS SUMMARY | 2023-10-20 11:52 | XMS_ITS | Encounter Summary ---
Author Organization [facility] [place] [address] Care Team Providers Care Peoplesoft Name Role Phone Lolly Oliveira MD Primary Care Provider [phone] Reason for Visit * Reason Comments Skin Check Encounter Details Date Type Department Care Team (Late st Contact Info) Description 11/23/2014 10:00 AM EDT Office Visit Dermatology at [address] [phone] Clay Ramírez MD [address] [facility] [place] [address] Dermatofibroma; Nevus; Solar lentigo Discharge Disposition: Home [...] AM [facility] Hospital Encounter Non[place] [address] Arrived documented as of this encounter Visit Diagnoses Diagnosis Dermatofibroma Benign neoplasm of skin, site unspecified Nevus Benign neoplasm of skin, site unspecified Solar lentigo Other dyschromia documented in this encounter Care Teams Peoplesoft Relationship Specialty Start Date End Date Lolly Oliveira MD [address] [place] [address] PCP - General 07/17/13 documented as of this encounter
--- OUTSIDE RECORDS SUMMARY | 2023-10-20 11:52 | XMS_ITS | Encounter Summary ---
Author Organization [facility] [place] [address] Care Team Providers Care Truck Terminal Manager Name Role Phone Lolly Oliveira MD Primary Care Provider [phone] Encounter Details Date Type Department Care Team (Latest Contact Info) Description 01/21/2023 10:00 AM EST - 01/21/2023 11:59 PM EST Hospital Encounter Non-[place] [phone] Discharge Disposition: Home Social History Tobacco Use [...] with spacer fluticasone propionate (Flonase) 50 mcg/actuation [place], Suspension 1 spray by Each Nare route [...] AM EST Hospital Encounter Non-[place] [address] Arrived documented as of this [...] on filedocumented in this encounter Care Teams Truck Terminal Manager Relationship Specialty Start Date End Date Lolly Oliveira MD [address] [place] [address] PCP - General 07/17/13 documented as of this encounter
--- OUTSIDE RECORDS SUMMARY | 2023-10-20 11:52 | XMS_ITS | Encounter Summary ---
Author Organization [facility] [place] [address] Care Team Providers Care Salvage Repairer Name Role Phone Lolly Oliveira MD Primary Care Provider Reason for Visit * Reason Onset Date Comments Post Procedure Call 07/30/2022 Encounter Details Date Type Department Care Team (Late st Contact Info) Description 07/30/2022 Notes Only Cardiology at [address] [phone] Rosenda Sutton, RN Post Procedure Call Social [...] 07/30/2022 9:59 AM EDTSummary: Post Procedure Call: SENIOR WEB ARCHITECT implant EP RN Post-Procedure Note: Date of Follow Up Call: 07/30/2022 Spoke With: Patient Procedure Type (choose all that apply): ICD Performing MIRLANDE Mcmahon Date of Procedure: 07/23/2022 Date of Discharge: 07/24/2022 Follow Up EP Visit Scheduled?: No No Follow Up Visit Reason: Follow up outside Outside Location: [facility] Date of Non EP Visit: 08/12/2022 [...] Note: Follow-up Recommendations for Providers: - s/p SENIOR WEB ARCHITECT-D implant - post implant QRS 130 ms - reviewed post-implant instructions - no medication changes - Follow up in device clinic for wound/device check in ~10 days??([facility]) Wound Care: -Wound will heal in approx [...] st Contact Info) Description 01/16/2024 10:00 AM [facility] Hospital Encounter [place] [address] Arrived documented as of this encounter Visit Diagnoses Not on filedocumented in this encounter Care Teams Salvage Repairer Relationship Specialty Start Date End Date Lolly Oliveira MD [address] [place] [address] PCP - General 07/17/13 documented as of this encounter
--- OUTSIDE RECORDS SUMMARY | 2023-10-20 11:52 | XMS_ITS | Encounter Summary ---
Author Organization [facility] [place] [address] Care Team Providers Care Construction Engineering Manager Name Role Phone Lolly Oliveira MD Primary Care Provider [phone] Reason for Visit * Reason Comments Follow-up Encounter Details Date Type Department Care Team (Late st Contact Info) Description 07/02/2022 8:00 AM EDT Office Visit Dermatology at [address] [phone] Clay Ramírez MD [address] [facility] [place] [address] Psoriasis, guttate Social History Tobacco Use Types [...] [facility] Hospital Encounter Non-Invasive [place] [phone] Arrived documented as of this encounter Visit Diagnoses Diagnosis Psoriasis, guttate Other psoriasis documented in this encounter Care Teams Construction Engineering Manager Relationship Specialty Start Date End Date Lolly Oliveira MD [address] [place] [address] PCP - General 07/17/13 documented as of this encounter
--- OUTSIDE RECORDS SUMMARY | 2023-10-20 11:52 | XMS_ITS | Encounter Summary ---
Author Organization [facility] [place] [address] Care Team Providers Care Filler Shredding Machine Loader Name Role Phone Lolly Oliveira MD Primary Care Provider [phone] Encounter Details Date Type Department Care Team (Late st Contact Info) Description 06/29/2011 Orders [place] [phone] Eleno Christian MD [facility] [place] [address] Social History Tobacco Use Types Packs/Day Years [...] AM EST Hospital Encounter Non-Invasive [place] [phone] Arrived documented as of this encounter Procedures [...] is a Non-reportable exam Eleno Christian MD [facility] [place] [facility] ORD ERABLES documented in this encounter Visit Diagnoses Not on filedocumented in this encounter Care Teams Filler Shredding Machine Loader Relationship Specialty Start Date End Date Lolly Oliveira MD [address] [place] [address] PCP - General 07/17/13 documented as of this encounter
--- OUTSIDE RECORDS SUMMARY | 2023-10-20 11:52 | XMS_ITS | Encounter Summary ---
Author Organization [facility] [place] [address] Care Team Providers Care Hand Binder Cutter Name Role Phone Lolly Oliveira MD Primary Care Provider [phone] Encounter Details Date Type Department Care Team (Latest Contact Info) Description 07/20/2013 9:26 AM EDT - 07/20/2013 11:59 PM EDT Hospital [place] [phone] CLINIC, Lolly So MD [address] [place], [place] [id number] Mammographic microcalcification Discharge Disposition: Home Social History [...] AM EST Hospital Encounter [place] [address] Arrived documented as of this encounter Procedures [...] business services representative of milk of calcium. Again, these [...] business services representative of milk of calcium. Again, these have an amorphous andpunctate appearance and remain indeterminate. Stereotactic guided biopsy isrecommended. Alia Fraire MD IMG MAMMO ORDERABLES documented in this encounter Visit Diagnoses Diagnosis Mammographic microcalcification documented in this encounter Care Teams Hand Binder Cutter Relationship Specialty Start Date End Date Lolly Oliveira MD [address] [place] [address] PCP - General 07/17/13 documented as of this encounter
--- OUTSIDE RECORDS SUMMARY | 2023-10-20 11:52 | XMS_ITS | Encounter Summary ---
Author Organization [facility] Address [facility] [place] [address] Care Team Providers Care Assembly Person Name Role Phone Lolly Oliveira MD Primary Care Provider [phone] Encounter Details Date Type Department Care Team (Late st Contact Info) Description 07/16/2022 Telephone Cardiology at [address] [phone] Lalit Mcmahon MD [facility] [place] [address] Social History Tobacco Use Types Packs/Day Years [...] her nonischemic cardiomyopathy. She is scheduled for HOME AIDE-D implantation next week and looks forward to the procedure. We will see each other next week. Lalit Mcmahon MD [facility] Cardiac Electrophysiology 07/16/2022 8:52 AM documented in this encounter Plan of Treatment Upcoming Encounters Date Type Department Care Team (Late st Contact Info) Description 01/16/2024 10:00 AM EST Hospital Encounter Non-Invasive [place] [address] Arrived documented as of this encounter Visit Diagnoses Not on filedocumented in this encounter Care Teams Assembly Person Relationship Specialty Start Date End Date Lolly Oliveira MD [address] [place] [address] PCP - General 07/17/13 documented as of this encounter
--- OUTSIDE RECORDS SUMMARY | 2023-10-20 11:52 | XMS_ITS | Encounter Summary ---
Author Organization [place] [address] Care Team Providers Care Aircraft Engine Technician Name Role Phone Lolly Oliveira MD Primary Care Provider [phone] Reason for Visit * Reason Comments Follow-up Encounter Details Date Type Department Care Team (Late st Contact Info) Description 05/21/2022 8:00 AM EDT Office Visit Dermatology at [address] [phone] Clay Ramírez MD [address] [facility] [place] [address] Psoriasis, guttate Social History Tobacco Use Types [...] [facility] Hospital Encounter Non-[place] [address] Arrived documented as of this encounter Visit Diagnoses Diagnosis Psoriasis, guttate Other psoriasis documented in this encounter Care Teams Aircraft Engine Technician Relationship Specialty Start Date End Date Lolly Oliveira MD [address] [place] [address] PCP - General 07/17/13 documented as of this encounter
--- OUTSIDE RECORDS SUMMARY | 2023-10-20 11:52 | XMS_ITS | Encounter Summary ---
Author Organization [facility] [place] [address] Care Team Providers Care Freight Caller Name Role Phone Lolly Oliveira MD Primary Care Provider [phone] Reason for Visit * Diagnostic Test (Routine) - Closed Specialty Diagnoses / Procedures Referred By Contac t Referred To Contact Radiology Diagnoses Left bundle branch block Nonischemic cardiomyopathy Procedures MRI Cardiac Morphology Function With Flow Velocity Quantification wwo Contrast MRI Cardiac Morphology Function wwo Contrast Lalit Mcmahon MD [facility] [place] [address] [facility] [place] [address] Referral ID Status Reason Start Date Expiration Date V isits Requested Visits Authorized [id number] Closed Specialty Service Requested 05/06/2022 11/07/2023 2 1 Encounter Details Date Type Department Care Team (Latest Contact Info) Description 07/14/2022 9:09 AM EDT - 07/14/2022 11:59 PM EDT Hospital [place] [address] Lalit Mcmahon MD [facility] [address] [place] [address] Discharge Disposition: Home Social History Tobacco Use [...] with spacer fluticasone propionate (Flonase) 50 mcg/actuation [place], Suspension 1 spray by Each Nare route [...] AM EST Hospital Encounter Non-Invasive [place] [address] Arrived documented as of this [...] mLs documented in this encounter Care Teams Freight Caller Relationship Specialty Start Date End Date Lolly Oliveira MD [address] [place] [address] PCP - General 07/17/13 documented as of this encounter
[2023-10-20 12:53] VITALS: BP 162/72; PULSE 63
[2023-10-22 12:51] VITALS: BP 141/68; PULSE 66
--- OUTSIDE RECORDS SUMMARY | 2023-10-22 12:52 | XMS_ITS | Data Portability ---
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 Member ID Lema Member ID Guarantor Name 05/21/2023 1 [id number]ANT[place] - [place]PO) [id number] Luna Blandon Tiera [id number] Luna Blandon Tiera 09/01/2023 1 [id number] - [place]) [id number] Luna Barber Mott [id number] Luna Mott Notes Date Note Type Note Provider Name and Address Organization Details Recorded Time 05/21/2023 text/html HPI Notes: Thais here today for an annual wellness exam JU CORTEZ MD [address], [place], [address], [facility]. 05/24/2023 18:32:35 09/01/2023 text/html HPI [...] the name of it. [address], [place], [address], [facility]. 09/01/2023 13:55:07 OBGyn Episode No OBEpisode recorded.
--- OUTSIDE RECORDS SUMMARY | 2023-10-22 12:53 | XMS_ITS | Encounter Summary ---
Author Organization [facility] Address [address] [place] [address] Care Team Providers Care Title Closer Name Role Phone Lolly Oliveira MD Primary Care Provider [phone] Encounter Details Date Type Department Care Team (Late st Contact Info) Description 05/27/2021 Lab Requisition [facility] Pathology & Laboratory Medicine - [address] [address] Iman Moran, DO [address] [place], [place] [id number] Encounter for other general examination Social History [...] management options, if applicable. 05/30/2021 13:31 EDT [facility] Final Diagnosis A. COLON, POLYP AT 90 CM, BIOPSY/POLYPECTOM Y: - Tubular adenoma. 05/30/2021 13:31 [facility] Attestation By the signature below, the attending physician certifies that they have 1) personally conducted a gross and/or microscopic examination of the described specimen(s), and/or personally interpreted the results of laboratory testing of the described specimen(s), and 2) personally rendered or confirmed the above diagnosis. 05/30/2021 13:31 [facility] at 1331 Clinical History Severe diverticula and polypectomy x1 05/30/2021 13:31 [facility] Gross Description A. Received in formalin labelled with proper patient identification (initials J, K) and colon polyp x1 at 90 cm is a light pineda polypoid tissue measuring 0.2 x 0.2 x 0.2 cm. Submitted intact in A1. MICKEY CARLOS(ASCP) 05/27/2021 19:11 05/30/2021 13:31 [facility] Performing Lab [facility] 05/30/2021 13:31 [facility] Scanned Images 05/30/2021 13:31 [facility] Tissue ENTIRE COLON / Unknown 05/27/2021 11:23 EDT 05/27/2021 16:33 EDT Iman Moran DO PATHOLOGY ORDERABLES [facility] [address] [place] [address] documented in this encounter Visit Diagnoses Diagnosis Encounter for other general examination documented in this encounter Care Teams Title Closer Relationship Specialty Start Date End Date Lolly Oliveira MD [address] [place] [address] PCP - General 11/13/08 documented as of this encounter
--- OUTSIDE RECORDS SUMMARY | 2023-10-22 12:53 | XMS_ITS | Encounter Summary ---
Author Organization [facility] [place] [address] Care Team Providers Care Qualitative Field Coordinator Name Role Phone Lolly Oliveira MD Primary Care Provider [phone] Encounter Details Date Type Department Care Team [...] AM EST Hospital Encounter Non-[place] [address] Arrived documented as of this encounter Visit Diagnoses Not on filedocumented in this encounter Care Teams Qualitative Field Coordinator Relationship Specialty Start Date End Date Lolly Oliveira MD [address] [place] [address] PCP - General 07/17/13 documented as of this encounter
--- OUTSIDE RECORDS SUMMARY | 2023-10-22 12:53 | XMS_ITS | Encounter Summary ---
Author Organization [facility] [place] [address] Care Team Providers Care Powerhouse Operator Name Role Phone Lolly Oliveira MD Primary Care Provider [phone] Encounter Details Date Type Department Care Team (Latest Contact Info) Description 10/18/2023 10:00 AM EDT - 10/18/2023 11:59 PM EDT Hospital Encounter Non[place] [address] Arrived Discharge Disposition: Home Social History Tobacco [...] with spacer fluticasone propionate (Flonase) 50 mcg/actuation [place], Suspension 1 spray by Each Nare route daily as needed. documented as of this encounter Plan of Treatment Upcoming Encounters Date Type Department Care Team (Late st Contact Info) Description 01/16/2024 10:00 AM [facility] Hospital Encounter Non[place] [address] Arrived documented as of this encounter Procedures [...] on filedocumented in this encounter Care Teams Powerhouse Operator Relationship Specialty Start Date End Date Lolly Oliveira MD [address] [place] [address] PCP - General 5/12/14 documented as of this encounter
--- OUTSIDE RECORDS SUMMARY | 2023-10-22 12:53 | XMS_ITS | Encounter Summary ---
Author Organization [facility] [place] [address] Care Team Providers Care Airborne Electronics Analyst Name Role Phone Lolly Oliveira MD Primary Care Provider Encounter Details Date Type Department Care Team (Late st Contact Info) Description 05/18/2023 Refill Dermatology at [address] [address] Nora Meredith LPN Social History [...] patient. She voiced understanding. Order sent to [facility] drug. documented in this encounter Plan of Treatment Upcoming Encounters Date Type Department Care Team (Late st Contact Info) Description 01/16/2024 10:00 AM EST Hospital Encounter Non-[place] [address] Arrived documented as of this encounter Visit Diagnoses Not on filedocumented in this encounter Care Teams Airborne Electronics Analyst Relationship Specialty Start Date End Date Lolly Oliveira MD [address] [place] [address] PCP - General 07/17/13 documented as of this encounter
--- OUTSIDE RECORDS SUMMARY | 2023-10-22 12:53 | XMS_ITS | Encounter Summary ---
Author Organization [facility] [place] [address] Care Team Providers Care Valve Mechanic Name Role Phone Lolly Oliveira MD Primary Care Provider [phone] Reason for Visit * Reason Comments Follow-up 8 weeks UVB treatmen t twice weekly Encounter Details Date Type Department Care Team (Late st Contact Info) Description 07/19/2023 11:00 AM EDT Office Visit Dermatology at [address] [id number] Clay Ramírez MD [address], ERIKA A DERMATOLOGY [place], [place] [address] Psoriasis Social History Tobacco Use Types Packs/Day [...] Contact Info) Description 01/16/2024 10:00 AM [facility] Hospital Encounter Non-[place] [address] Arrived documented as of this encounter Visit Diagnoses Diagnosis Psoriasis Other psoriasis documented in this encounter Care Teams Valve Mechanic Relationship Specialty Start Date End Date Lolly Oliveira MD [address] [place] [address] PCP - General 07/17/13 documented as of this encounter
--- OUTSIDE RECORDS SUMMARY | 2023-10-22 12:53 | XMS_ITS | Encounter Summary ---
Author Organization [facility] Address [address] [place] [address] Care Team Providers Care Agent Ticketing Gate Name Role Phone Lolly Oliveira MD Primary Care Provider [phone] Encounter Details Date Type Department Care Team (Late st Contact Info) Description 04/12/2007 Results Only [facility] conversion [address] [place] [address] Lolly Oliveira MD [address] [place], [place] [phone] Social History Tobacco Use Types Packs/Day Years [...] ? JING ALVARENGA ? Accession #: ? [id number] : ? 1950 (Age: 56) ??F ?Collect Date: ? 04/12/2007 Location: ? [facility] ? Receive Date: ? 04/13/2007 Provider: ?LOLLY OLIVEIRA MD Copy to: ? Specimen/Source: ?ThinPrep Pap Test, Cervix/Endocervix, processed on [employer] ThinPrep Imaging System, with manual evaluation [...] Oliveira MD PATHOLOGY ORDERABLES [facility] [address] [place] [address] documented in this encounter Visit Diagnoses Not on filedocumented in this encounter Care Teams Agent Ticketing Gate Relationship Specialty Start Date End Date Lolly Oliveira MD [address] [place] [address] PCP - General 11/13/08 documented as of this encounter
--- OUTSIDE RECORDS SUMMARY | 2023-10-22 12:53 | XMS_ITS | Encounter Summary ---
Author Organization [place] [address] Care Team Providers Care Reactor Service Operator Name Role Phone Lolly Oliveira MD Primary Care Provider [phone] Encounter Details Date Type Department Care Team (Latest Contact Info) Description 07/20/2023 10:00 AM EDT - 07/20/2023 11:59 PM EDT Hospital Encounter [place] [phone] Discharge Disposition: Home Social History Tobacco Use [...] with spacer fluticasone propionate (Flonase) 50 mcg/actuation [place], Suspension 1 spray by Each Nare route daily as needed. documented as of this encounter Plan of Treatment Upcoming Encounters Date Type Department Care Team (Late st Contact Info) Description 01/16/2024 10:00 AM [email or web address] Hospital Encounter [place] [address] Arrived documented as of this encounter Procedures [...] on filedocumented in this encounter Care Teams Reactor Service Operator Relationship Specialty Start Date End Date Lolly Oliveira MD [address] [place] [address] PCP - General 07/17/13 documented as of this encounter
--- OUTSIDE RECORDS SUMMARY | 2023-10-22 12:53 | XMS_ITS | Encounter Summary ---
Author Organization [facility] Address [facility] [place] [address] Care Team Providers Care Photography Spotter Name Role Phone Lolly Oliveira MD Primary Care Provider Encounter Details Date Type Department Care Team (Late st Contact Info) Description 05/03/2023 Telephone Cardiology at [address] [phone] Lalit Mcmahon MD [facility] [place] [address] Social History Tobacco Use Types Packs/Day Years [...] AM EST Hospital Encounter Non-Invasive [place] [address] Arrived documented as of this encounter Visit Diagnoses Not on filedocumented in this encounter Care Teams Photography Spotter Relationship Specialty Start Date End Date Lolly Oliveira MD [address] [place] [address] PCP - General 07/17/13 documented as of this encounter
--- OUTSIDE RECORDS SUMMARY | 2023-10-22 12:53 | XMS_ITS | Encounter Summary ---
Author Organization [facility] Address [address] [place] [address] Care Team Providers Care Robotics Mechanic Name Role Phone Lolly Oliveira MD Primary Care Provider [phone] Encounter Details Date Type Department Care Team (Late st Contact Info) Description 05/02/2004 Results Only [facility] conversion [address] [place] [address] Lolly Oliveiar MD [address] [place], [place] [phone] Social History Tobacco Use Types Packs/Day Years [...] [facility]. [facility] Report Status Final [id number] [facility] 05/02/2004 9:32 EST 05/10/2004 9:32 EST Lolly Oliveira MD MICROBIOLOGY - GENER AL ORDERABLES [facility] [address] [place] [address] * CYTOPATHOLOGY (05/02/2004 0:00 EST) Pathology Report: CYTOPATHOLOGY REPORT Reports generated via electronic interface contain original data; however they are lacking the format of the original report. Caution should be taken when reading/interpreti ng unformatted reports. Name: ? JING ALVARENGA ? Accession #: ? [id number] : ? 1950 (Age: 53) ??F ?Collect [...] Oliveira MD PATHOLOGY ORDERABLES Performing Organization Address City/State/[facility] Co de Phone Number [facility] [address] [place] [address] documented in this encounter Visit Diagnoses Not on filedocumented in this encounter Care Teams Robotics Mechanic Relationship Specialty Start Date End Date Lolly Oliveira MD [address] [place] [address] PCP - General 11/13/08 documented as of this encounter
--- OUTSIDE RECORDS SUMMARY | 2023-10-22 12:53 | XMS_ITS | Encounter Summary ---
Author Organization [facility] Address [address] [place] [address] Care Team Providers Care .Net Programmer Name Role Phone Lolly Oliveira MD Primary Care Provider [phone] Encounter Details Date Type Department Care Team (Late st Contact Info) Description 04/25/2009 Orders Only [facility] Laboratory Services - [facility] [address] [place], [place] [phone] Lolly Oliveira MD [address] [place], [place] [phone] Social History Tobacco Use Types Packs/Day Years [...] reading/interpreti ng unformatted reports. ? Name: ? JIGN ALVARENGA ? Accession #: ? [id number] ? : ? 1950 (Age: 58) ??F [...] reviewed and electronically signed by: ? Helena Axtell, [place](ASCP) ? Report Date: ??04/29/2009 10:38 ? End of Report ? [facility] 04/25/2009 04/26/2009 Lolly Oliveira MD PATHOLOGY ORDERABLES [facility] [address] [place] [address] documented in this encounter Visit Diagnoses Not on filedocumented in this encounter Care Teams .Net Programmer Relationship Specialty Start Date End Date Lolly Oliveira MD [address] [place] [address] PCP - General 11/13/08 documented as of this encounter
--- OUTSIDE RECORDS SUMMARY | 2023-10-22 12:53 | XMS_ITS | Continuity of Care Document ---
Author Organization [place] [facility] Address [address] [place] [address] Care Team Providers Care Game Farm Supervisor Name Role Phone [facility] EYE [facility] OFFICE Optometris t ASHLY THURSTON Electrical Machine Builder JAYCOB MARTINEZ Orthopedic Surgeon ROXANA KELLEY Chemical Analytical Sampler FLOWER RAMSEY Dentist [phone] Assessment No assessment recorded. Plan of Treatment Reminders Order Date Submit Date Provider Last Modified By Organization Details Last Modified Time Details Appointments Follow Up 30 2023 07:30A M Not available Not available Not available Lab None recorded. Referral physical therapist referral 2023 024 Chinedu Amato PT, [address], [place], [address], 10/18/2023 12:01:58 Procedures None recorded. Surgeries None recorded. Imaging None recorded. Medication Orders meclizine 25 mg tablet 2023 024 [id number], [address] [place], [address], 09/01/2023 13:22:14 Patient TargetsNo targets recorded. Patient Instructions Encounter Date Encounter Id Patient Instructions Last Modified By Organization Details Last Modified Time 09/01/2023 [id number] 1. The earwax from your ears were [...] Not available 09/01/2023 13:23:33 Reason for Referral Auto Servicer Referral for Onyc homycosis onychomycosis, calluses Referring [...] L98.9; Problem Code Type: ICD-10; Not [facility] 04:01:52 Pain in right hip joint Completed 201512/02/2022 Problem Code: M25.551; Problem Code Type: ICD-10; Not Available [facility] 3 04:01:52 Onychomycosis due to dermatophyte Active 201609/22/2016 - Comments only - Lolly Oliveira MD - she is going to contact podiatry to find out if they have any other topical txs that might work. She is not interested in systemic tx Problem Code: B35.1; Problem Code Type: ICD-10; Not Available [facility] 3 04:01:52 Hearing loss of right ear Completed 201712/10/2017 11/26/2017 - Comments only - Naseem Gil PA-C - Ceruminosis treated in-office today. If hearing fails to be fully restored over the course of the weekend, will consider for ENT refer for formal audiology assessment. Problem Code: H91.91; Problem Code Type: ICD-10; Not Available [facility] 3 04:01:52 Abnormal weight gain Active 2018 Problem Code: R63.5; Problem Code Type: ICD-10; Not Available [facility] 3 04:01:53 Disorder of hip joint [...] Code Type: ICD-10; Not Available [facility] 3 04:01:53 Acute vaginitis Completed 201801/04/2019 12/21/2018 - Comments only - Naseem Gil PA-C - Will await resutls of today's collected VPS to determine indication for further treatment. Problem Code: N76.0; Problem Code Type: ICD-10; Not Available [facility] 3 04:01:53 Intertrigo Completed 201801/04/2019 12/21/2018 - Comments only - Naseem Gil PA-C - Patient encouraged to keep skin folds as clean and dry as possible to avoid reactivation (suggested chair inspector and leveler after bathing). Additionally, could consider to use OTC DESITIN for acute skin healing. Problem Code: L30.4; Problem Code Type: ICD-10; Not Available [facility] 3 04:01:53 Pre-surgery evaluation Completed 201801/23/2019 01/09/2019 - Comments only - Naseem Gil PA-C - Today's EKG shows stable LBBB (compared to study 10/19/14) with NSR at 69bpm. Patient to f/u for pre-operative laboratory testing and anesthesia consult as scheduled 01/17/19. Problem Code: Z01.818; Problem Code Type: ICD-10; Not Available [facility] 3 04:01:53 Hip joint prosthesis present Active 2018 Problem Code: Z96.642; Problem Code Type: ICD-10; Not Available [facility] 3 04:01:53 Dyspnea Completed 201903/27/2019 03/13/2019 - [...] Code Type: ICD-10; Not Available [facility] 3 04:01:54 Edema Completed 201906/21/2019 06/07/2019 - Comments only - Naseem Gil PA-C - Patient reassured nothing concerning on today's PX to raise suspicion for DVT. Suspect minor calf muscle strain. OK to continue to use compression stockings for symtpomatic relief and consider calf stretches. F/U PRN. Problem Code: R60.9; Problem Code Type: ICD-10; Not Available [facility] 3 04:01:54 Headache Active 2020 Problem Code: R51.9; Problem Code Type: ICD-10; Not Available [facility] 3 04:01:54 Guttate psoriasis Active 202004/16/2022 - Comments only - Lolly Oliveira MD - being followed by derm, remaining under reasonable control with the UV tx and prn clobetasol cream Problem Code: L40.4; Problem Code Type: ICD-10; Not Available [facility] 3 04:01:54 Stool finding Active 2021 Problem Code: R19.5; Problem Code Type: ICD-10; Not Available [facility] 3 04:01:54 Specialized medical examination Active 2021 Problem Code: Z01.89; Problem Code Type: ICD-10; Not Available [facility] 3 04:01:54 Edema Active 2021 Problem Code: R60.9; Problem Code Type: ICD-10; Not Available [facility] 3 04:01:55 Screening mammography Active 2021 Problem Code: Z12.31; Problem Code Type: ICD-10; Not Available [facility] 3 04:01:55 Abnormal finding on evaluation procedure Active 08/17/ 2022 Problem Code: R89.9; Problem Code Type: ICD-10; Not Available [facility] 3 04:01:55 Dyspnea Active 2021 Problem Code: R06.02; Problem Code Type: ICD-10; Not Available [facility] 3 04:01:55 Cardiomyopath y Active 202109/04/2022 [...] T30.0; Problem Code Type: ICD-10; Not Available [facility] 3 04:01:56 Senile osteoporosis Active 202101/11/2022 - Comments only - Lolly Oliveira MD - Due for a repeat DEXA scan. Ordered. She does take an rdki-nqm-feiq ter vitamin D supplement I believe. Problem Code: M81.0; Problem Code Type: ICD-10; Not Available [facility] 3 04:01:56 Hyperlipidemi a Active 202204/16/2022 - [...] Code Type: ICD-10; Not Available [facility] 3 04:02:05 Pain of right lower leg Completed 202101/11/2022 Problem Code: M79.661; Problem Code Type: ICD-10; Not Available [facility] 3 04:02:06 Hyperlipidemi a Completed 200910/19/2017 Not Available [facility] 3 04:02:07 Dizziness and giddiness Completed 201408/14/2019 Problem Code: R42; Problem Code Type: ICD-10; Not Available [facility] 3 04:02:07 Hypertensive disorder Completed 201011/03/2018 Not Available [facility] 3 04:02:09 Diarrhea Completed 201610/19/2017 Problem Code: R19.7; Problem Code Type: ICD-10; Not Available [facility] 3 04:02:10 Anemia Completed 201901/11/2022 Problem Code: D64.9; Problem Code Type: ICD-10; Not Available [facility] 3 04:02:10 [place] - lesion Active 2022 Problem Code: L84; Problem Code Type: ICD-10; Not Available [facility] 4 05:37:51 Foot callus Active [address], [place] 4 11:29:32 Onychomycosis Active [address], [address] 4 11:29:44 Vertigo Active [address], [address] 4 13:20:57 Impacted cerumen of bilateral ears Active [address], [address] 4 13:21:03 Notes:*Problem Name: [place] copy 2005 - Hyperplastic Polyp *ICD-10 Codes: *Problem Status: inactive *Comments: *Note Date: 04/29/2010 *Problem Name: Rt Breast Bx 2013 - Adenosis *ICD-10 Codes: *Problem Status: active *Comments: *Note Date: 08/01/2013 Problem Notes None recorded. Procedures Surgical History Date Name Laterality Status Provider Name and Address Organization Details Recorded Time 4 Cerumen Removal completed NATHAN HERNANDEZ Dr, [address] 09/01/2023 13:52:38 3 total replacement of right hip joint completed Cornelia juan, [facility] 03/31/2023 17:11:24 Imaging Results None recorded. Procedure Notes None recorded. Medical Equipment None Reported. Allergies Allergen ID Allergen Name Allergen Category Reaction Reaction Severity Criticality Documentation Date Start Date Code Code System Note Provider Name and Address Organization Details Recorded Time 53372 sulfadiaz ine medicatio n tachycard ia mild Not available 01/15/20232001 99542 RxNorm Tachy cardi a Not Available [facility] 3 16:22:29 Medications Name Sig Start [...] Updated DateTime 4 159.385 cm 38.7 kg/m2 15834.8 2 g 97.1 [degF] 17 /min 95 % 95 % 60 /min 139 mm[Hg] 69 mm[Hg] Vonda Fields RN [facility] 12:25:13 Social History Question Answer Notes LastModified by Organizat ion Details LastModified Time Tobacco Smoking Status Never Smoker Davey Allen MA null, [facility] 05/21/2023 10:57:21 Would You Say That, In General, Your Health Is Very Good Information not available 05/21/2023 How Often Does Anyone, Including Family, Physically Hurt You? Never Information not available 05/21/2023 How Often Does Anyone, Including Family, Insult Or Talk Down To You? Never [email or web address] Information no t available 05/21/2023 How Often Does Anyone, Including Family, Threaten You With Harm? Never [email or web address] Information not available 05/21/2023 How Often Does Anyone, Including Family, Scream Or Curse At You? Never [email or web address] Information not available 05/21/2023 Within The Past 12 Months, You Worried That Your Food Would Run Out Before You Got Money To Buy More. Never True [email or web address] Information n ot available 05/21/2023 Within The Past 12 Months, The Food You Bought Just Didn't Last And You Didn't Have Money To Get More. Never True Information n ot available 05/21/2023 How Hard Is It For You To Pay For The Very Basics Like Food, Housing, Medical Care, And Heating? Would You Say It Is: Not Hard At All Information not available 05/21/2023 In The Past 12 Months, Has Lack Of Reliable Transportation Kept You From Medical Appointments, Meetings, Work Or From Getting Things Needed For Daily Living? No [email or web address] Information not available 05/21/2023 What Is Your Housing Situation Today? I Have Housing. [email or web address] Information not available 05/21/2023 How Often In The Past Year Have You Used Marijuana (including Smoking, Vaping, Dabbing, Or Edibles)? Never [email or web address] Information not available 05/21/2023 How Often In The Past Year Have You Used Prescription Medications That Were Not Prescribed To You? Never [email or web address] Information n ot available 05/21/2023 How Often In The Past Year Have You Taken Your Own Prescription Medication More Than The Way It Was Prescribed Or For Different Reasons Than Its Intended Purpose? Never [email or web address] Information no t available 05/21/2023 How Often In The Past Year Have You Used Other Drugs (for Example, Heroin, Cocaine, Meth, Salvia, Inhalants)? Never Information not available 05/21/2023 Have You Ever Used IV Drugs? No [email or web address] Information not available 05/21/2023 What Matters Most To You? Staying Healthy, Keeping Active. Getting Exercise And Losing Some Weight [email or web address] Information not available 05/21/2023 During The Past Four Weeks Has Your Physical And Emotional Health Limited Your Social Activities With Family And Friends, Neighbors, Or Groups? Not At All [email or web address] Information not available 05/21/2023 During The Past Four Weeks, Was Someone Available To Help You If You Needed And Wanted Help? (For Example, If You [place] Very Nervous, Lonely, Or Blue; Got Sick And Had To Stay In Bed; Needed Someone To Talk To; Needed Help With Daily Chores; Or Needed Help Just Taking Care Of Yourself.) No- Not At All [email or web address] Information n ot available 05/21/2023 During The Past Four Weeks, What Was The Hardest Physical Activity You Could Do For At Least 2 Minutes? Moderate [email or web address] Information not available 05/21/2023 Can You Get To Places Out Of Walking Distance Without Help? (For Example, Can You Travel Alone On Buses Or Taxis, Or Drive Your Own Car?) Yes [email or web address] Information not available 05/21/2023 Can You Go Shopping For Groceries Or Clothes Without Someone? s Help? Yes Information not available 05/21/2023 Can You Prepare Your Own Meals? Yes [email or web address] Information not available 05/21/2023 Can You Do Your Housework Without Help? Yes [email or web address] Information not available 05/21/2023 Because Of Any Health Problems, Do You Need The Help Of Another Person With Your Personal Care Needs Such As Eating, Bathing, Dressing, Or Getting Around The House? No [email or web address] Information not available 05/21/2023 Can You Handle Your Own Money Without Help? Yes [email or web address] Information not available 05/21/2023 Are You Having Difficulties Driving Your Car? No [email or web address] Information no t available 05/21/2023 Do You Always Fasten Your Seat Belt When You Are In A Car? Yes- Usually [email or web address] Information not available 05/21/2023 How Often During The Past Four Weeks Have You Been Bothered By Any Of The Following Problems? Falling Or Dizzy When Standing Up? Never Information not available 05/21/2023 Sexual Problems? Never [email or web address] Informat ion not available 05/21/2023 Trouble Eating Well? Sometimes [email or web address] Information not available 05/21/2023 Teeth Or Denture Problems? Sometimes [email or web address] Information not available 05/21/2023 Problems Using The Telephone? Never [email or web address] Information not available 05/21/2023 Tiredness Or Fatigue? Sometimes [email or web address] Information not available 05/21/2023 Have You Had 2 Or More Falls Or Sustained An Injury With A Fall In The Last Year? No [email or web address] Information no t available 05/21/2023 Do You Have Difficulty With Walking Or Balance? No Information not available 05/21/2023 Do You Currently Use A Hearing Device? No [email or web address] Information not available 05/21/2023 Do You Currently Have Any Trouble With Your Vision? Yes [email or web address] Information no t available 05/21/2023 Do You Exercise For About 20 Minutes Three Or More Days A Week? Yes- Most Of The Time [email or web address] Information not available 05/21/2023 Are There Any Safety Concerns In Your Home (see Attached CDC Pamphlet)? No [email or web address] Information not available 05/21/2023 How Often Do You Have Trouble Taking Medicines The Way You Have Been Told To Take Them? I Always Take Them As Prescribed [email or web address] Information not available 05/21/2023 How Confident Are You That You Can Control And Manage Most Of Your Health Problems? Very Confident [email or web address] Information not available 05/21/2023 Do You Currently Have Any Difficulty With Your Hearing? No Information not available 05/21/2023 Date Of Most Recent SBINS 05/21/2023 [email or web address] Information not available 05/21/2023 What Was The Date Of Your Most Recent Tobacco Screening? 09/01/2023 Information not available 09/01/2023 Has Tobacco Cessation Counseling Been Provided? Yes Information not available 09/01/2023 On What Date Was Tobacco Cessation Counseling Provided? 09/01/2023 Information not available 09/01/2023 Do You Or Have You Ever Used Any Other Forms Of Tobacco Or Nicotine? No [email or web address] Information not available 05/21/2023 Sex: Female Functional [...] 04:53:39 zoster live 06/16/2012 completed Not Available [facility] 01/15/2023 04:53:40 Pneumococcal conjugate PCV 13 09/17/2015 completed Not Available [facility] 01/15/2023 04:53:40 Influenza, high-dose, trivalent, PF 11/26/2017 completed Not Available [facility] 01/15/2023 04:53:41 Td(adult) unspecified formulation 09/30/1992 completed Not Available [facility] 01/15/2023 04:53:41 Influenza, split virus, trivalent, preservative 11/28/2015 completed Not Available [facility] 01/15/2023 04:53:41 Influenza, split virus, trivalent, preservative 01/04/2015 completed Not Available [facility] 01/15/2023 04:53:41 Influenza, split virus, quadrivalent, PF 12/21/2018 completed Not Available [facility] 01/15/2023 04:53:41 zoster recombinant 08/30/2018 completed Not Available [facility] 01/15/2023 04:53:42 zoster recombinant 01/26/2018 completed Not Available [facility] 01/15/2023 04:53:42 Influenza, high-dose, quadrivalent, PF 12/04/2020 completed Not Available [facility] 01/15/2023 04:53:43 Influenza, high-dose, quadrivalent, PF 12/11/2019 completed Not Available [facility] 01/15/2023 04:53:43 Influenza, high-dose, quadrivalent, PF 12/29/2021 completed Not Available [facility] 01/15/2023 04:53:43 COVID-19, mRNA, LNP-S, PF, 100 mcg/0.5mL dose or 50 mcg/0.25mL dose 07/09/2021 completed Not Available [facility] 01/15/2023 04:53:43 COVID-19 vaccine, vector-nr, rS-Ad26, PF, 0.5 mL 05/02/2020 completed Not Available [facility] 01/15/2023 04:53:44 SARS-COV-2 (COVID-19) vaccine, UNSPECIFIED 05/31/2020 completed Not Available [facility] 01/15/2023 04:53:44 SARS-COV-2 (COVID-19) vaccine, UNSPECIFIED 01/03/2021 completed Not Available [facility] 01/15/2023 04:53:44 pneumococcal polysaccharide PPV23 07/05/2014 completed Not Available [facility] 2022 04:53:45 Hep B, unspecified formulation 04/14/1993 completed Not Available [facility] 01/15/2023 04:53:45 Hep B, unspecified formulation 09/30/1992 completed Not Available [facility] 01/15/2023 04:53:46 Hep B, unspecified formulation 10/31/1992 completed Not Available [facility] 01/15/2023 04:53:46 influenza, unspecified formulation 12/11/2009 completed [...] mcg/0.3 mL 12/28/2022 completed Not Available [facility] 03/19/2023 05:33:03 Past Encounters Encounter ID Performer Location Encounter Start Date Encounter Closed Date Diagnosis/Indication Diagnosis SNOMED-CT Code [id number] [address] [place] [address] 09/01/2023 10:23:16 09/01/2023 13:28:10 Vertigo 227720205 Impacted c erumen of bilateral ears [id number] 8 Health Concerns Section Related Observation LastModified by Organization Detai ls LastModified Time None Recorded Concern Status LastModified by Organization Details LastModified Time None Recorded Payers Encounter Date Sequence Insurance Name Policy Number Policy Lema Covered Member ID Lema Member ID Guarantor Name 09/01/2023 1 [id number] (MEDIC[place]/ [place]ANTAGE - PPO) [id number] Luna Mott [id number] Luna Mott Notes Date Note Type [...] the name of it. [address], [place], [address], [facility]. 09/01/2023 13:55:07 OBGyn Episode No OBEpisode recorded.
--- OUTSIDE RECORDS SUMMARY | 2023-10-22 12:53 | XMS_ITS | Encounter Summary ---
Author Organization [facility] Address [address] [place] [address] Care Team Providers Care Distillery Miller Helper Name Role Phone Lolly Oliveira MD Primary Care Provider [phone] Encounter Details Date Type Department Care Team (Late st Contact Info) Description 04/01/2005 Results Only [facility] [address] [place] [address] Blair Dukes MD [address] [place] [address] [phone] Social History Tobacco Use Types Packs/Day Years [...] ? JING ALVARENGA ? Accession #: ? [id number] ? : ? 1950 (Age: 54) ??F [...] (A). Received in [place]' s fixative labelled [place] and #2 ??transverse colon bx is a single 0.2 x 0.2 x 0.2 cm tissue, submitted intact as (B). ??(Dr. Lechuga)/[place] End of Report [facility] 04/01/2005 04/02/2005 15: 24 EST Blair Dukes MD PATHOLOGY ORDERABLES [facility] [address] [place] [address] documented in this encounter Visit Diagnoses Not on filedocumented in this encounter Care Teams Distillery Miller Helper Relationship Specialty Start Date End Date Lolly Oliveira MD [address] [place] [address] PCP - General 11/13/08 documented as of this encounter
--- OUTSIDE RECORDS SUMMARY | 2023-10-22 12:53 | XMS_ITS | Encounter Summary ---
Author Organization [facility] Address [address] [place] [address] Care Team Providers Care Medical Surgical Tech Name Role Phone Lolly Oliveira MD Primary Care Provider [phone] Encounter Details Date Type Department Care Team (Late st Contact Info) Description 02/11/2021 Lab Requisition [facility] Pathology & Laboratory Medicine - [address] [address] Outr Resulting Lab, Provider Social History Tobacco [...] Outr Resulting Lab MICROBIOLOGY - GENERAL ORDERABLES [facility] [address] [place] [address] * COVID-19 TESTING (02/11/2021 8:00 EST) COVID-19 rt-PCR Result Negative Negative 02/12/2021 14:17 EST [facility] Comment: This test has [...] was performed using the med SARS-CoV-2 assay ([employer] on the Med 6800 System Performing Lab Med [address] [facility] Lab 02/12/2021 14:17 EST [facility] Swab 02/11/2021 8:00 EST 02/11/2021 22:22 EST Provider Outr Resulting Lab MICROBIOLOGY - GENERAL ORDERABLES [facility] [address] [place] [address] documented in this encounter Visit Diagnoses Not on filedocumented in this encounter Care Teams Medical Surgical Tech Relationship Specialty Start Date End Date Lolly Oliveira MD [address] [place] [address] PCP - General 11/13/08 documented as of this encounter
--- OUTSIDE RECORDS SUMMARY | 2023-10-22 12:53 | XMS_ITS | Encounter Summary ---
Author Organization [facility] Address [address] [place] [address] Care Team Providers Care Radiography Technician Name Role Phone Lolly Oliveira MD Primary Care Provider [phone] Encounter Details Date Type Department Care Team (Late st Contact Info) Description 02/20/2020 Lab Requisition [facility] Pathology & Laboratory Medicine - [address] [id number] Outr Resulting Lab, Provider Social History Tobacco [...] in accordance with CLIA regulations, [employer] (CAP) guidelines (May 25, 2019), and FDA guidance (May 06, 2019). This test is only for use under the Food and Drug Administration's Emergency Use Authorization. Swab ENTIRE NASOPHARYNX / Unknown 02/19/2020 16:30 EST 02/20/2020 16:09 EST Provider Outr Resulting Lab MICROBIOLOGY - GENERAL ORDERABLES [facility] [place], [place] * COVID-19 TESTING (02/19/2020 16:30 EST) COVID-19 rt-PCR Result NEGATIVE Negative 02/22/2020 23:41 EST [facility] Comment: 2019-novel Coronavirus (2019-nCoV) not detected [...] in accordance with CLIA regulations, [employer] [place] (CAP) guidelines (May 25, 2019), and FDA guidance (May 06, 2019). This test is only for use under the Food and Drug Administration's Emergency Use Authorization. Performing Lab [facility] 02/22/2020 23:41 EST [facility] Swab 02/19/2020 16:3 0 EST 02/20/2020 16:09 EST Provider Outr Resulting Lab MICROBIOLOGY - GENERAL ORDERABLES [facility] [address] [place] [address] [facility] [place], [place] documented in this encounter Visit Diagnoses Not on filedocumented in this encounter Care Teams Radiography Technician Relationship Specialty Start Date End Date Lolly Oliveira MD [address] [place] [address] PCP - General 11/13/08 documented as of this encounter
--- OUTSIDE RECORDS SUMMARY | 2023-10-22 12:53 | XMS_ITS | Referral Summary ---
Author Organization [facility] Address [address] [place] [address] Care Team Providers Care Field Human Resources Manager Name Role Phone Lolly Oliveira MD Primary Care Provider [phone] Social History Tobacco Use Types Packs/Day Years Used Date Smoking Tobacco: Never Assessed Sex and Gender Information Value Date Recorded Sex Assigned at Not on file Gender Identity Not on file Sexual Orientation Not on file Plan of Treatment Not on file Care Teams Field Human Resources Manager Relationship Specialty Start Date End Date Lolly Oliveira MD [address] [place] [address] PCP - General 11/13/08
--- OUTSIDE RECORDS SUMMARY | 2023-10-22 12:53 | XMS_ITS | Encounter Summary ---
Author Organization [facility] Address [address] [place] [address] Care Team Providers Care Radio Program Checker Name Role Phone Lolly Oliveira MD Primary Care Provider [phone] Encounter Details Date Type Department Care Team (Late st Contact Info) Description 11/13/2020 Lab Requisition [facility] Pathology & Laboratory Medicine - [address] [id number] Outr Resulting Lab, Provider Social History Tobacco [...] Outr Resulting Lab MICROBIOLOGY - GENERAL ORDERABLES [facility] [address] [place] [address] * COVID-19 TESTING (11/13/2020 7:30 EDT) COVID-19 rt-PCR Result Negative Negative 11/14/2020 11:46 EDT [facility] Comment: This test has not [...] performed using the med SARS-CoV-2 assay ([employer] on the Med 6800 System Performing Lab Med [address] [facility] Lab 11/14/2020 11:46 EDT [facility] Swab 11/13/2020 7:30 EDT 11/13/2020 20:57 EDT Provider Outr Resulting Lab MICROBIOLOGY - GENERAL ORDERABLES [facility] [address] [place] [address] documented in this encounter Visit Diagnoses Not on filedocumented in this encounter Care Teams Radio Program Checker Relationship Specialty Start Date End Date Lolly Oliveira MD [address] [place] [address] PCP - General 11/13/08 documented as of this encounter
--- OUTSIDE RECORDS SUMMARY | 2023-10-22 12:53 | XMS_ITS | Encounter Summary ---
Author Organization [facility] Address [address] [place] [address] Care Team Providers Care Yardage Control Operator Name Role Phone Lolly Oliveira MD Primary Care Provider [phone] Encounter Details Date Type Department Care Team (Late st Contact Info) Description 06/16/2012 Results Only [facility] Laboratory Services - [facility] [address] [place], [place] [id number] Lolly Oliveira MD [address] [place], [place] [id number] Social History Tobacco Use Types Packs/Day Years [...] ? JING ALVARENGA ? Accession #: ? [id number] : ? 1950 (Age: 61) ??F ?Collect [...] MD PATHOLOGY ORDERABLES [facility] [address] [place] [address] documented in this encounter Visit Diagnoses Not on filedocumented in this encounter Care Teams Yardage Control Operator Relationship Specialty Start Date End Date Lolly Oliveira MD [address] [place] [address] PCP - General 11/13/08 documented as of this encounter
--- OUTSIDE RECORDS SUMMARY | 2023-10-22 12:53 | XMS_ITS | Clinical Summary ---
Author Organization [facility] [place] [address] Care Team Providers Care Small Arms Artillery Repairer Name Role Phone Lolly Oliveira MD Primary Care Provider [phone] Allergies Active Allergy Reactions Criticality Noted Date [...] spacer Active fluticasone propionate (Flonase) 50 mcg/actuation [place], Suspension 1 spray by Each Nare route [...] PM EDT Hospital Encounter [place] [address] Arrived Discharge Disposition: Home from Last 3 Months [...] AM EST Hospital Encounter [place] [address] Arrived Health Maintenance Due Date Last Done [...] - PCV) 2013 Covid-19 Vaccine ( - 2022- season) 2022 Influenza (Flu) vaccine (1 o f 1 - Influenza standard series) 11/07/2023 Medical Devices Implanted Type Area Admiralty Lawyer Device Identifier Shelf Expiration Date Model / Serial / Lot Bsx: [id number]: 323502-7/18/2 023 Implanted: by Lalit Mcmahon MD (Quantity not on file) Defibrillator Chest Wall [employer] [id number] / [id number] / Bsx: [id number]: 357445-0/18/2 023 Implanted: by Lalit Mcmahon MD (Quantity not on file) Lead Heart [employer] 4674 / [id number] / Bsx: [id number]: [id number] Implanted: by Lalit Mcmahon MD (Quantity not on file) Lead Heart [employer] 7841 / [id number] / Bsx: 0672: 020532-4/18/2 023 Implanted: by Lalit Mcmahon MD (Quantity not on file) Lead Heart [employer] 0672 / [id number] / Procedures Procedure Name Priority Date/Time Associated [...] Status decision made by: Patient Care Teams Small Arms Artillery Repairer Relationship Specialty Start Date End Date Lolly Oliveira MD [address] [place] [address] PCP - General 07/17/13
--- OUTSIDE RECORDS SUMMARY | 2023-10-22 12:53 | XMS_ITS | Encounter Summary ---
Author Organization [facility] Address [address] [place] [address] Care Team Providers Care Senior Reactor Operator Name Role Phone Lolyl Oliveira MD Primary Care Provider [phone] Encounter Details Date Type Department Care Team (Late st Contact Info) Description 05/29/2002 Results Only [facility] [address] [place] [address] Silvia Diehl, [address] [place] [phone] Social History Tobacco Use Types Packs/Day Years [...] ? JING MOTT ? Accession #: ? [id number] : ? 1950 (Age: 51) ??F ?Collect Date: ? 05/29/2002 Location: ? [facility] ? Receive Date: ? 05/31/2002 Provider: ?SILVIA DIEHL ESCALATOR OPERATOR Copy to: ? Specimen/Source: ?ThinPrep Pap [...] Report [facility] 05/29/2002 05/31/2002 Silvia Diehl ESCALATOR OPERATOR PATHOLOGY ORDERABLES [facility] [address] [place] [address] documented in this encounter Visit Diagnoses Not on filedocumented in this encounter Care Teams Senior Reactor Operator Relationship Specialty Start Date End Date Lolly Oliveira MD [address] [place] [address] PCP - General 11/13/08 documented as of this encounter
--- OUTSIDE RECORDS SUMMARY | 2023-10-22 12:53 | XMS_ITS | Encounter Summary ---
Author Organization [facility] Address [address] [place] [address] Care Team Providers Care Box Estimator Name Role Phone Lolly Oliveira MD Primary Care Provider [phone] Encounter Details Date Type Department Care Team (Late st Contact Info) Description 03/21/2019 Lab Requisition [facility] Pathology & Laboratory Medicine - [address] [address] Unknown, Provider, Social History Tobacco Use Types [...] 211 - 911 pg/mL 03/22/2019 11:52 EST [facility] Blood VENOUS BLOOD / Unknown 03/16/2019 9:25 EST 03/21/2019 21:35 EST Provider Unknown CHEMISTRY & BLOOD GA S ORDERABLES [facility] [address] [place] [address] documented in this encounter Visit Diagnoses Not on filedocumented in this encounter Care Teams Box Estimator Relationship Specialty Start Date End Date Lolly Oliveira MD [address] [place] [address] PCP - General 11/13/08 documented as of this encounter
--- OUTSIDE RECORDS SUMMARY | 2023-10-22 12:53 | XMS_ITS | Encounter Summary ---
Author Organization [facility] Address [address] [place] [address] Care Team Providers Care Greeting Card Maker Name Role Phone Unavailable Primary Care Provider Unavailabl e Encounter Details Date Type Department Care Team (Late st Contact Info) Description 11/07/2008 Orders Only [facility] Laboratory Services - [facility] ([facility]) [address] [place] [address] Kenneth Parker MD [address] [place] [address] Social History Tobacco Use Types Packs/Day Years [...] ? LYLE, JING ? Accession #: ? [id number] ? : ? 1950 (Age: 58) ??F ? Collect Date: ? 11/07/2008 ? Location: ? [facility] ? Receive Date: ? 11/08/2008 ? Provider: KENNETH PARKER MD ? Copy to: JU CORTEZ MD ? Final Pathologic Diagnosis: ? Endometrium, biopsy: ? 1. ??Superficial strips of inactive endometrial lining. ? 2. ??Scant stroma; insufficient for evaluation. ? Document reviewed and electronically signed by: ? Soco SAldia Jordan, MD ? Report ??Date: 11/13/2008 16:18 [...] Parker MD PATHOLOGY ORDERABLES Performing Organization Address City/State/[place] Co de Phone Number [facility] [address] [place] [address] documented in this encounter Visit Diagnoses Not on filedocumented in this encounter
--- OUTSIDE RECORDS SUMMARY | 2023-10-22 12:53 | XMS_ITS | Clinical Summary ---
Author Organization [facility] Address [address] [place] [address] Care Team Providers Care Offbearer Sewer Pipe Name Role Phone Lolly Oliveira MD Primary Care Provider [phone] Social History Tobacco Use Types Packs/Day Years [...] COVID-19 Vaccine ( season) 2022 Care Teams Offbearer Sewer Pipe Relationship Specialty Start Date End Date Lolly Oliveira MD [address] [place], [place] [address] PCP - General 11/13/08
--- OUTSIDE RECORDS SUMMARY | 2023-10-22 12:53 | XMS_ITS | Encounter Summary ---
Author Organization [facility] Address [address] [place] [address] Care Team Providers Care Uc Architect Name Role Phone Lolly Oliveira MD Primary Care Provider [phone] Encounter Details Date Type Department Care Team (Late st Contact Info) Description 03/06/2003 Results Only [facility] [address] [place] [address] Lolly Oliveira MD [address] [place], [place] [id number] Social History Tobacco Use Types Packs/Day Years [...] Oliveira MD PATHOLOGY ORDERABLES Performing Organization Address City/State/[facility] Co de Phone Number [facility] [address] [place] [address] documented in this encounter Visit Diagnoses Not on filedocumented in this encounter Care Teams Uc Architect Relationship Specialty Start Date End Date Lolly Oliveira MD [address] [place] [address] PCP - General 11/13/08 documented as of this encounter
--- OUTSIDE RECORDS SUMMARY | 2023-10-22 12:53 | XMS_ITS | Encounter Summary ---
Author Organization [facility] Address [address] [place] [address] Care Team Providers Care Dye Colorist Dyer Name Role Phone Lolly Oliveira MD Primary Care Provider [phone] Encounter Details Date Type Department Care Team (Late st Contact Info) Description 04/17/2005 Results Only [facility] conversion [address] [place] [address] Lolly Oliveira MD [address] [place], [place] [phone] Social History Tobacco Use Types Packs/Day Years [...] ? JING ALVARENGA ? Accession #: ? [id number] : ? 1950 (Age: 54) ??F ?Collect Date: ? 04/17/2005 Location: ? [facility] ? Receive Date: ? 04/21/2005 Provider: ?LOLLY OLIVEIRA MD Copy to: ? Specimen/Source: ?ThinPrep Pap Test, Cervix/Endocervix, processed on Cell[employer]ricPrep Imaging System, with manual evaluation Last Menstrual [...] Oliveira MD PATHOLOGY ORDERABLES [facility] [address] [place] [address] documented in this encounter Visit Diagnoses Not on filedocumented in this encounter Care Teams Dye Colorist Dyer Relationship Specialty Start Date End Date Lolly Oliveira MD [address] [place] [address] PCP - General 11/13/08 documented as of this encounter
--- OUTSIDE RECORDS SUMMARY | 2023-10-22 12:53 | XMS_ITS | Encounter Summary ---
Author Organization [place] [address] Care Team Providers Care Golf Ball Marker Name Role Phone Lolly Oliveira MD Primary Care Provider [phone] Encounter Details Date Type Department Care Team (Late st Contact Info) Description 05/18/2023 Telephone Dermatology at [address] [address] Nora Meredith LPN Social History [...] st Contact Info) Description 01/16/2024 10:00 AM [facility] Hospital Encounter Non-[place] [phone] Arrived documented as of this encounter Visit Diagnoses Not on filedocumented in this encounter Care Teams Golf Ball Marker Relationship Specialty Start Date End Date Lolly Oliveira MD [address] [place] [address] PCP - General 07/17/13 documented as of this encounter
--- OUTSIDE RECORDS SUMMARY | 2023-10-22 12:54 | XMS_ITS | Encounter Summary ---
Author Organization [facility] [place] [address] Care Team Providers Care Asphalt Tile Floor Layer Name Role Phone Lolly Oliveira MD Primary Care Provider [phone] Reason for Visit * Reason Comments Follow-up Encounter Details Date Type Department Care Team (Late st Contact Info) Description 05/21/2022 8:00 AM EDT Office Visit Dermatology at [address] [phone] Clay Ramírez MD [address] [facility] [place] [address] Psoriasis, guttate Social History Tobacco Use Types [...] st Contact Info) Description 01/16/2024 10:00 AM [facility] Hospital Encounter Non-[place] [address] Arrived documented as of this encounter Visit Diagnoses Diagnosis Psoriasis, guttate Other psoriasis documented in this encounter Care Teams Asphalt Tile Floor Layer Relationship Specialty Start Date End Date Lolly Oliveira MD [address] [place] [address] PCP - General 07/17/13 documented as of this encounter
--- OUTSIDE RECORDS SUMMARY | 2023-10-22 12:54 | XMS_ITS | Encounter Summary ---
Author Organization [facility] [place] [address] Care Team Providers Care Senior Laboratory Technician Name Role Phone Lolly Oliveira MD Primary Care Provider Encounter Details Date Type Department Care Team (Late st Contact Info) Description 04/01/2021 3:30 PM EST Office Visit Dermatology at [address] [phone] Clay Ramírez MD [address] [facility] [address] [place] [address] Psoriasis, guttate Social History Tobacco Use Types [...] AM EST Hospital Encounter Non-[place] [address] Arrived documented as of this encounter Visit Diagnoses Diagnosis Psoriasis, guttate Other psoriasis documented in this encounter Care Teams Senior Laboratory Technician Relationship Specialty Start Date End Date Lolly Oliveira MD [address] [place] [address] PCP - General 07/17/13 documented as of this encounter
--- OUTSIDE RECORDS SUMMARY | 2023-10-22 12:54 | XMS_ITS | Encounter Summary ---
Author Organization [facility] [place] [address] Care Team Providers Care Nuclear Physician Name Role Phone Lolly Oliveira MD Primary Care Provider [phone] Reason for Visit * Reason Comments Follow-up Encounter Details Date Type Department Care Team (Late st Contact Info) Description 07/02/2022 8:00 AM EDT Office Visit Dermatology at [address] [phone] Clay Ramírez MD [address] [facility] [place] [address] Psoriasis, guttate Social History Tobacco Use Types [...] st Contact Info) Description 01/16/2024 10:00 AM [facility] Hospital Encounter Non-Invasive [place] [phone] Arrived documented as of this encounter Visit Diagnoses Diagnosis Psoriasis, guttate Other psoriasis documented in this encounter Care Teams Nuclear Physician Relationship Specialty Start Date End Date Lolly Oliveira MD [address] [place] [address] PCP - General 07/17/13 documented as of this encounter
--- OUTSIDE RECORDS SUMMARY | 2023-10-22 12:54 | XMS_ITS | Encounter Summary ---
Author Organization [facility] [place] [address] Care Team Providers Care Script Reader Name Role Phone Lolly Oliveira MD Primary Care Provider [phone] Reason for Referral * Diagnostic Test (Routine) - Closed Specialty Diagnoses / Procedures Referred By Contac t Referred To Contact Radiology Diagnoses Left bundle branch block Nonischemic cardiomyopathy Procedures MRI Cardiac Morphology Function With Flow Velocity Quantification [facility] Contrast MRI Cardiac Morphology Function wwo Contrast Lalit Mcmahon MD [facility] [place] [address] [place] [address] Referral ID Status Reason Start Date Expiration Date V isits Requested Visits Authorized [id number] Closed Specialty Service Requested 05/06/2022 11/07/2023 2 1 Reason for Visit * Diagnostic Test (Routine) - Closed Specialty Diagnoses / Procedures Referred By Contac t Referred To Contact Radiology Diagnoses Left bundle branch block Nonischemic cardiomyopathy Procedures MRI Cardiac Morphology Function With Flow Velocity Quantification o Contrast MRI Cardiac Morphology Function wwo Contrast Lalit Mcmahon MD [facility] [address] [place] [address] Referral ID Status Reason Start Date Expiration Date V isits Requested Visits Authorized [id number] Closed Specialty Service Requested 05/06/2022 11/07/2023 2 1 Encounter Details Date Type Department Care Team (Latest Contact Info) Description 07/14/2022 9:08 AM EDT Hospital Encounter MRI at [facility] [place] [phone] Lalit Mcmahon MD [facility] [address] [place] [address] Left bundle branch block; Nonischemic cardiomyopathy Discharge [...] with spacer fluticasone propionate (Flonase) 50 mcg/actuation [place], Suspension 1 spray by Each Nare route [...] 71 y.o. : 1950 [address] [facility] [address] Female [phone] (home) No relevant phone numbers on file. Lolly Oliveira MD None Allergies Allergen Reactions ??? Sulfa (Sulfonamide Antibiotics) Date/Time of call: July 07, 2022/11:03 AM/ PREVIOUS MRI SCAN? HEIGHT: WEIGHT: SCHEDULED SCAN: MRI CARDIAC MORPHOLOGY FUNCTION WITH FLOW VELOCITY QUANTIFICATION WWO CONTRAST [[id number]] Order Questions Answers Where will study be performed? [facility] Radiology [120] SUBJECTIVE: Very Claustrophobic [...] ( KV ) You must have a pile driver operator barge mounted present when you check in. This patient has been informed that they require a pile driver operator barge mounted to drive them home after this procedure. In the absence of a pile driver operator barge mounted, IR will not be able to sedate for your scan. Pt verbalized understanding of these instructions during the pre-procedure education via phone. Yes Name of pile driver operator barge mounted: Daughter Phone number: PRIOR SCAN DATE/S SEDATION TYPE SUCCESSFUL 07/14/22 MRI Cardiac Morphology Function with Flow Velocity Quantification wwo Contrast Ativan 1mg x 1 dose Pass Revised 08/03/17 documented in this encounter Plan of Treatment Upcoming Encounters Date Type Department Care Team (Late st Contact Info) Description 01/16/2024 10:00 AM [facility] Hospital Encounter [place] [address] Arrived documented as of this encounter Procedures [...] have questions please contact the health home care aide that requested your imaging first. ? Electronically signed by: Greyson Herron MD, [facility] ([phone]), at 07/15/2022 9:53 AM Narrative 07/15/2022 9:53 [...] who have questions please contactthe health home care aide that requested your imaging first. Lalit Mcmahon [...] mg documented in this encounter Care Teams Script Reader Relationship Specialty Start Date End Date Lolly Oliveira MD [address] [place] [address] PCP - General 07/17/13 documented as of this encounter
--- OUTSIDE RECORDS SUMMARY | 2023-10-22 12:54 | XMS_ITS | Encounter Summary ---
Author Organization [facility] [place] [address] Care Team Providers Care Software Engineering Analyst Name Role Phone Lolly Oliveria MD Primary Care Provider [phone] Reason for Referral * Consultation (Routine) - Closed Specialty Diagnoses / Procedures Referred By Contact Referred To Contact Electrophysiology / Cardiology Diagnoses Left bundle branch block Cardiomyopathy, unspecified type AT MINIMUM PT NEEDS CONSIDERATION FOR DEFIBRILLATOR, ALSO CANDIDATE FOR RESYNCHRONIZATION THERAPY HER QRS IS >0.16 Lolly Oliveira MD [address] [place] [address] [facility] Cardiology [address] [place] [phone] Referral ID Status Reason Start Date Expiration Date V isits Requested Visits Authorized [id number] Closed Consult, Test & Treat PCP Updated and/or Approved 04/30/2022 04/30/2023 6 6 Encounter Details Date Type Department Care Team (Latest Contact Info) Description 04/30/2022 Transcribe Orders eDH Incoming Referrals [phone] Lolly Oliveira MD [address] [place], [place] [phone] Left bundle branch block; Cardiomyopathy, unspecified type [...] AM EST Hospital Encounter [place] [address] Arrived Scheduled Referrals Name Type Priority Associated Diagnoses Orde r Schedule Referral to Cardiology Outpatient Referral Routine Left bundle branch block Cardiomyopathy, Unspecified Type Ordered: 04/30/2022 documented as of this encounter Visit Diagnoses Diagnosis Left bundle branch block Other left bundle branch block Cardiomyopathy, unspecified type documented in this encounter Care Teams Software Engineering Analyst Relationship Specialty Start Date End Date Lolly Oliveira MD [address] [place] [address] PCP - General 07/17/13 documented as of this encounter
--- OUTSIDE RECORDS SUMMARY | 2023-10-22 12:54 | XMS_ITS | Encounter Summary ---
Author Organization [facility] [place] [address] Care Team Providers Care Shovel Mechanic Name Role Phone Lolly Oliveira MD Primary Care Provider [phone] Reason for Visit * Reason Onset Date Comments Pre Procedure Call 07/01/2022 Encounter Details Date Type Department Care Team (Late st Contact Info) Description 07/01/2022 Telephone Cardiology at [address] [phone] Rosenda Sutton RN Pre Procedure Call Social History Tobacco Use Types Packs/Day Years Used Date Smoking Tobacco: Never Sex and Gender Information Value Date Recorded Sex Assigned at Not on file Gender Identity Not on file Sexual Orientation Not on file documented as of this encounter Miscellaneous Notes * Telephone Encounter - Rosenda Sutton RN - 07/01/2022 9:30 AM EDTSummary: Pre Procedure Call: CRYPTOLOGIC TECHNICIAN implant EP BAKERY DECORATOR COORDINATION CHECKLIST Patient Name: Luna Mott Patient Performing Pasteurizing Machine Operator: Lalit Mcmahon Referring Provider: Lolly Oliveira Date of Procedure: 07/23/22 Arrival Time/ Case Time: 12:00 pm / 1:00 pm Check In Location: Electroplater Helper Desk 4W Date Patient was Called: 07/01/22 Procedure: CRYPTOLOGIC TECHNICIAN Company: [employer] Type: CRYPTOLOGIC TECHNICIAN-D Laterality: LEFT Orders: Yes Lab Orders: Yes [...] overnight , understands that they will need sprinkler truck driver on day of discharge Notified pt that Goff catheter may be placed on day of procedure depending on type & duration of case. documented in this encounter Plan of Treatment Upcoming Encounters Date Type Department Care Team (Late st Contact Info) Description 01/16/2024 10:00 AM [facility] Hospital Encounter [place] [address] Arrived documented as of this encounter Visit Diagnoses Not on filedocumented in this encounter Care Teams Shovel Mechanic Relationship Specialty Start Date End Date Lolly Oliveira MD [address] [place] [address] PCP - General 07/17/13 documented as of this encounter
--- OUTSIDE RECORDS SUMMARY | 2023-10-22 12:54 | XMS_ITS | Encounter Summary ---
Author Organization [facility] [place] [address] Care Team Providers Care Digital Marketing Associate Name Role Phone Lolly Oliveira MD Primary Care Provider [phone] Reason for Visit * Reason Comments Follow-up Encounter Details Date Type Department Care Team (Late st Contact Info) Description 06/06/2021 8:45 AM EDT Office Visit Dermatology at [address] [address] Clay Ramírez MD [address] [facility] [place] [address] Psoriasis, guttate Social History Tobacco Use Types [...] st Contact Info) Description 01/16/2024 10:00 AM [facility] Hospital Encounter Non-[place] [phone] Arrived documented as of this encounter Visit Diagnoses Diagnosis Psoriasis, guttate Other psoriasis documented in this encounter Care Teams Digital Marketing Associate Relationship Specialty Start Date End Date Lolly Oliveira MD [address] [place] [address] PCP - General 07/17/13 documented as of this encounter
--- OUTSIDE RECORDS SUMMARY | 2023-10-22 12:54 | XMS_ITS | Encounter Summary ---
Author Organization [facility] [place] [address] Care Team Providers Care Ring Maker Name Role Phone Lolly Oliveira MD Primary Care Provider [phone] Encounter Details Date Type Department Care Team (Late Contact Info) Description 01/14/2022 Telephone Dermatology at [address] [address] Nora Meredith LPN Social History [...] return to phototherapy. New order sent to [facility]. Reviewed with patient Dr. Mar recommendation. She agrees with plan of care. Advised patient order will be sent to [facility]. She voiced understanding. documented in this encounter Plan of Treatment Upcoming Encounters Date Type Department Care Team (Late Contact Info) Description 01/16/2024 10:00 AM EST Hospital Encounter [place] [address] Arrived documented as of this encounter Visit Diagnoses Not on filedocumented in this encounter Care Teams Ring Maker Relationship Specialty Start Date End Date Lolly Oliveira MD [address] [place] [address] PCP - General 07/17/13 documented as of this encounter
--- OUTSIDE RECORDS SUMMARY | 2023-10-22 12:54 | XMS_ITS | Encounter Summary ---
Author Organization [facility] Address [facility] [place] [address] Care Team Providers Care Front Office Secretary Name Role Phone Lolly Oliveira MD Primary Care Provider [phone] Encounter Details Date Type Department Care Team (Late st Contact Info) Description 07/16/2022 Telephone Cardiology at [address] [phone] Lalit Mcmahon MD [facility] [place] [address] Social History Tobacco Use Types Packs/Day Years [...] her nonischemic cardiomyopathy. She is scheduled for INTERACTIVE MEDIA MARKETING DIRECTOR-D implantation next week and looks forward to the procedure. We will see each other next week. Lalit Mcmahon MD [facility] Cardiac Electrophysiology 07/16/2022 8:52 AM documented in this encounter Plan of Treatment Upcoming Encounters Date Type Department Care Team (Late st Contact Info) Description 01/16/2024 10:00 AM EST Hospital Encounter Non-[place] [address] Arrived documented as of this encounter Visit Diagnoses Not on filedocumented in this encounter Care Teams Front Office Secretary Relationship Specialty Start Date End Date Lolly Oliveira MD [address] [place] [address] PCP - General 07/17/13 documented as of this encounter
--- OUTSIDE RECORDS SUMMARY | 2023-10-22 12:54 | XMS_ITS | Encounter Summary ---
[place] [address] Care Team Providers Care Sanitation Engineer Name Role Phone Lolly Oliveira MD Primary Care Provider [phone] Encounter Details Date Type Department Care Team (Late st Contact Info) Description 07/17/2013 [place] [phone] Lolly Oliveira MD [address] [place], [place] [id number] Social History Tobacco Use Types Packs/Day Years [...] AM EST Hospital Encounter Non-Invasive [place] [address] Arrived documented as of this encounter Procedures Procedure Name Priority Date/Time Associated Diagnosis Comments REQUEST FOR 2ND READ MAMMO Routine 07/17/2013 8:45 AM EDT documented in this encounter Results * Request for 2nd read Mammo (07/17/2013 8:45 AM EDT) Anatomical Region Laterality Modality Other 07/17/2013 8:45 AM EDT Narrative 07/17/2013 3:57 PM EDT INTERPRETATION OF OUTSIDE MAMMOGRAMS (PERFORMED ON 07/06/13 AND 07/14/13) FROM [facility] DATED 07/17/13: ?? DIAGNOSTIC IMAGING [...] OUTSIDE MAMMOGRAMS (PERFORMED ON 07/06/13 AND 07/14/13) [facility] DATED 07/17/13: DIAGNOSTIC IMAGING SUMMARY: RIGHT BREAST [...] on filedocumented in this encounter Care Teams Sanitation Engineer Relationship Specialty Start Date End Date Lolly Oliveira MD [address] [place] [address] PCP - General 07/17/13 documented as of this encounter
--- OUTSIDE RECORDS SUMMARY | 2023-10-22 12:54 | XMS_ITS | Encounter Summary ---
Author Organization [facility] [place] [address] Care Team Providers Care Tap Dancer Name Role Phone Lolly Oliveira MD Primary Care Provider [phone] Encounter Details Date Type Department Care Team (Latest Contact Info) Description 07/26/2013 9:45 AM EDT - 07/26/2013 11:59 PM EDT Hospital En[place] [address] Mammographic microcalcification Social History Tobacco Use Types [...] AM EST Hospital Encounter [place] [address] Arrived documented as of this encounter Procedures [...] microcalcification documented in this encounter Care Teams Tap Dancer Relationship Specialty Start Date End Date Lolly Oliveira MD [address] [place] [address] PCP - General 07/17/13 documented as of this encounter
--- OUTSIDE RECORDS SUMMARY | 2023-10-22 12:54 | XMS_ITS | Encounter Summary ---
Author Organization [facility] [place] [address] Care Team Providers Care Molded Goods Operator Name Role Phone Lolly Oliveira MD Primary Care Provider [phone] Encounter Details Date Type Department Care Team (Late st Contact Info) Description 07/26/2013 Orders [place] [phone] Eleno Christian MD [facility] [place] [address] Social History Tobacco Use Types Packs/Day Years [...] AM EST Hospital Encounter Non-Invasive [place] [address] Arrived documented as of this encounter Visit Diagnoses Not on filedocumented in this encounter Care Teams Molded Goods Operator Relationship Specialty Start Date End Date Lolly Oliveira MD [address] [place] [address] PCP - General 07/17/13 documented as of this encounter
--- OUTSIDE RECORDS SUMMARY | 2023-10-22 12:54 | XMS_ITS | Encounter Summary ---
Author Organization [facility] Address [facility] [place] [address] Care Team Providers Care Voice Intercept Technician Name Role Phone Lolly Oliveira MD Primary Care Provider [phone] Reason for Referral * Diagnostic Test (Routine) - Closed Specialty Diagnoses / Procedures Referred By Contkoki t Referred To Contact Cardiology Diagnoses Nonischemic cardiomyopathy Biventricular ICD (implantable cardioverter-defibrillator) in place Procedures Echocardiogram Transthoracic Lalit Mcmahon MD [facility] [address] [place] [id number] Referral ID Status Reason Start Date Expiration Date V isits Requested Visits Authorized [id number] Closed Specialty Service Requested 03/15/2023 09/11/2023 1 1 Encounter Details Date Type Department Care Team (Late st Contact Info) Description 03/15/2023 Orders Only Cardiology at [address] [address] Lalit Mcmahon MD [facility] [address] Nonischemic cardiomyopathy; Biventricular ICD (implantable cardioverter-defibrill ator) in place Social History Tobacco Use Types Packs/Day Years Used Date Smoking Tobacco: Never Alcohol Use Standard Drinks/Week Comments Not Currently 0 (1 standard drink = 0.6 oz pur e alcohol) [facility] Inpatient Questions Answer Date Recorded [...] AM EST Hospital Encounter Non-Invasive [place] [address] Arrived Scheduled Orders Name Type Priority Associated Diagnoses Order Schedule Echocardiogram Transthoracic Echocardiography Routine Nonischemic cardiomyopathy Biventricular ICD (implantable cardioverter-defibr illator) in place Expected: 05/05/2023, Expires: 11/04/2023 documented as of this encounter Visit Diagnoses Diagnosis Nonischemic cardiomyopathy Other primary cardiomyopathies Biventricular ICD (implantable cardioverter-defibrillator) in place documented in this encounter Care Teams Voice Intercept Technician Relationship Specialty Start Date End Date Lolly Oliveira MD [address] [place] [address] PCP - General 07/17/13 documented as of this encounter
--- OUTSIDE RECORDS SUMMARY | 2023-10-22 12:54 | XMS_ITS | Encounter Summary ---
Author Organization [facility] [place] [address] Care Team Providers Care Tankroom Tender Name Role Phone Lolly Oliveira MD Primary Care Provider [phone] Encounter Details Date Type Department Care Team (Latest Contact Info) Description 07/20/2013 9:26 AM EDT - 07/20/2013 11:59 PM EDT Hospital En[place] [address] CLINIC, Lolly So MD [address] [place], [place] [id number] Mammographic microcalcification Discharge Disposition: Home Social History [...] AM EST Hospital Encounter Non[place] [address] Arrived documented as of this encounter Procedures [...] does not layer and, therefore, are not insurance verification representative of milk of calcium. Again, these [...] does not layer and, therefore, are not insurance verification representative of milk of calcium. Again, these have an amorphous andpunctate appearance and remain indeterminate. Stereotactic guided biopsy isrecommended. Alia Fraire MD IMG MAMMO ORDERABLES documented in this encounter Visit Diagnoses Diagnosis Mammographic microcalcification documented in this encounter Care Teams Tankroom Tender Relationship Specialty Start Date End Date Lolly Oliveira MD [address] [place] [address] PCP - General 07/17/13 documented as of this encounter
--- OUTSIDE RECORDS SUMMARY | 2023-10-22 12:54 | XMS_ITS | Encounter Summary ---
Author Organization [facility] [place] [address] Care Team Providers Care Work Environment Safety Inspector Name Role Phone Lolly Oliveira MD Primary Care Provider [phone] Encounter Details Date Type Department Care Team (Late st Contact Info) Description 03/17/2023 Telephone Cardiology at [address] [phone] Saranya Ma Social History Tobacco Use Types Packs/Day Years Used Date Smoking Tobacco: Never Alcohol Use Standard Drinks/Week Comments Not Currently 0 (1 standard drink = 0.6 oz pur e alcohol) [facility] Inpatient Questions Answer Date Recorded Does [...] 9:43 AM EST Echo order faxed to [facility] at [phone]. No Prior auth needed. Ref #:[id number]. Saranya Ma Sr. Clinical Procedure [place]/Orderlies Teacher documented in this encounter Plan of Treatment Upcoming Encounters Date Type Department Care Team (Late st Contact Info) Description 01/16/2024 10:00 AM [facility] Hospital Encounter Non-[place] [address] Arrived documented as of this encounter Visit Diagnoses Not on filedocumented in this encounter Care Teams Work Environment Safety Inspector Relationship Specialty Start Date End Date Lolly Oliveira MD [address] [place] [address] PCP - General 07/17/13 documented as of this encounter
--- OUTSIDE RECORDS SUMMARY | 2023-10-22 12:54 | XMS_ITS | Encounter Summary ---
Author Organization [facility] [place] [address] Care Team Providers Care Quality Compliance Manager Name Role Phone Lolly Oliveira MD Primary Care Provider [phone] Encounter Details Date Type Department Care Team (Latest Contact Info) Description 04/21/2023 10:00 AM EST - 04/21/2023 11:59 PM EST Hospital Encounter [place] [address] Discharge Disposition: Home Social History Tobacco Use [...] with spacer fluticasone propionate (Flonase) 50 mcg/actuation [place], Suspension 1 spray by Each Nare route [...] AM EST Hospital Encounter [place] [address] Arrived documented as of this [...] 4:55 AM EST Narrative Authorizing Provider Result Mign AREVALO IMPLANTABLE CARDIAC DEVICE documented in this encounter Visit Diagnoses Not on filedocumented in this encounter Care Teams Quality Compliance Manager Relationship Specialty Start Date End Date Lolly Oliveira MD [address] [place] [address] PCP - General 07/17/13 documented as of this encounter
--- OUTSIDE RECORDS SUMMARY | 2023-10-22 12:54 | XMS_ITS | Encounter Summary ---
Author Organization [facility] [place] [address] Care Team Providers Care Foreign Languages Department Chair Name Role Phone Lolly Oliveira MD Primary Care Provider [phone] Encounter Details Date Type Department Care Team (Latest Contact Info) Description 01/21/2023 10:00 AM EST - 01/21/2023 11:59 PM EST Hospital Encounter Non-Invasive [place] [address] Discharge Disposition: Home Social History Tobacco Use [...] with spacer fluticasone propionate (Flonase) 50 mcg/actuation [place], Suspension 1 spray by Each Nare route [...] AM EST Hospital Encounter Non-Invasive [place] [address] Arrived documented as of this [...] on filedocumented in this encounter Care Teams Foreign Languages Department Chair Relationship Specialty Start Date End Date Lolly Oliveira MD [address] [place] [address] PCP - General 07/17/13 documented as of this encounter
--- OUTSIDE RECORDS SUMMARY | 2023-10-22 12:54 | XMS_ITS | Encounter Summary ---
[place] [address] Care Team Providers Care Heater Mechanic Name Role Phone Lolly Oliveira MD Primary Care Provider [phone] Encounter Details Date Type Department Care Team [...] AM EST Hospital Encounter Non-Invasive [place] [address] Arrived documented as of this encounter Visit Diagnoses Not on filedocumented in this encounter Care Teams Heater Mechanic Relationship Specialty Start Date End Date Lolly Oliveira MD [address] [place] [address] PCP - General 07/17/13 documented as of this encounter
--- OUTSIDE RECORDS SUMMARY | 2023-10-22 12:54 | XMS_ITS | Encounter Summary ---
Author Organization [facility] [place] [address] Care Team Providers Care Putty And Patch Worker Name Role Phone Lolly Oliveira MD Primary Care Provider [phone] Reason for Visit * Reason Comments Psoriasis Encounter Details Date Type Department Care Team (Late st Contact Info) Description 04/09/2022 1:45 PM EST Office Visit Dermatology at [address] [address] Clay Ramírez MD [address] [facility] [place] [address] Psoriasis, guttate Social History Tobacco Use Types [...] AM EST Hospital Encounter Non-Invasive [place] [address] Arrived documented as of this encounter Visit Diagnoses Diagnosis Psoriasis, guttate Other psoriasis documented in this encounter Care Teams Putty And Patch Worker Relationship Specialty Start Date End Date Lolly Oliveira MD [address] [place] [address] PCP - General 07/17/13 documented as of this encounter
--- OUTSIDE RECORDS SUMMARY | 2023-10-22 12:54 | XMS_ITS | Encounter Summary ---
Author Organization [facility] [address] Care Team Providers Care Jacquard Loom Fixer Name Role Phone Lolly Oliveira MD Primary Care Provider [phone] Encounter Details Date Type Department Care Team (Latest Contact Info) Description 10/23/2022 10:00 AM EDT - 10/23/2022 11:59 PM EDT Hospital Encounter Non-[place] [address] Discharge Disposition: Home Social History Tobacco Use [...] with spacer fluticasone propionate (Flonase) 50 mcg/actuation [place], Suspension 1 spray by Each Nare route [...] [facility] Hospital Encounter Non-[place] [address] Arrived documented as of this [...] on filedocumented in this encounter Care Teams Jacquard Loom Fixer Relationship Specialty Start Date End Date Lolly Oliviera MD [address] [place] [address] PCP - General 07/17/13 documented as of this encounter
--- OUTSIDE RECORDS SUMMARY | 2023-10-22 12:54 | XMS_ITS | Encounter Summary ---
Author Organization [facility] Address [facility] [place] [address] Care Team Providers Care Manager Nuclear Name Role Phone Lolly Oliveira MD Primary Care Provider [phone] Reason for Visit * Auth/Cert (Routine) Specialty Diagnoses / Procedures Referred By Contac t Referred To Contact Diagnoses Left bundle-branch block, unspecified Other cardiomyopathies Left bundle branch block [I44.7]Nonischemic cardiomyopathy [I42.8] Procedures PRG CATH PLMT LEFT HEART CATH & ARTS W/INJ & ANGIO IMG S&I ELECTROPHYSIOLOGY PROCEDURE Lalit Mcmahon MD [facility] [place] [address] [facility] Referral ID Status Reason Start Date Expiration Date Visits Re quested Visits Authorized [id number] 1 1 Encounter Details Date Type Department Care Team (Late st Contact Info) Description 07/23/2022 1:08 PM EDT Anesthesia Event [place] [address] Monae Gonzalez MD [facility] [address] Maria Elena Snyder CRNA [facility] [place] [address] Anesthesia Record Procedure Summary Procedure Name Responsible [...] 1307; median cubital vein (antecubital fossa), right; [id number] catheter system; Anatomical Landmarks; 20 gauge; 07/24/22; 0913 07/23/22 1307 by Maria Elena Snyder CRNA 07/24/22 0913 by Aila Frye RN Arterial Line 07/23/22; 1327; radi [...] 1343; metacarpal vein (top of hand), left; [id number]-gfr-ekffhv catheter system; Anatomical Landmarks; US Not Used; [...] Date: 07/23/22 Room / Location: [facility] A-LAB ROOM 3 / [facility] EP LABS Anesthesia Start: 1308 Anesthesia Stop: 1633 Procedure: ELECTROPHYSIOLOGY PROCEDURE (Left) Diagnosis: Left bundle branch block Nonischemic cardiomyopathy (Left bundle branch block [I44.7]Nonischemic cardiomyopathy [I42.8]) Providers: Lalit Mcmahon MD Responsible Provider: Monae Gonzalez MD Anesthesia Type: general ASA Status: 4 All Anesthesia Providers: Anesthesiologist: Monae Gonzalez MD; Dominique Sen MD PLATE CLEANER: Maria Elena Snyder CRNA Vitals Value Taken Time BP 131/46 07/23/22 1700 Temp 36.7 ??C (98.1 ??F) 07/23/22 1627 Pulse 67 07/23/22 1703 Resp 14 07/23/22 1703 SpO2 98 % 07/23/22 1703 Pain Level Vitals shown include unvalidated device data. 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 No prior anesthetic records. Pt states that [...] daughter/son and patient who. Plan discussed with PLATE CLEANER. Anesthesia Screening documented in this encounter Plan of Treatment Upcoming Encounters Date Type Department Care Team (Late st Contact Info) Description 01/16/2024 10:00 AM [facility] Hospital Encounter [place] [address] Arrived documented as of this [...] mg documented in this encounter Care Teams Manager Nuclear Relationship Specialty Start Date End Date Lolly Oliveira MD [address] [place] [address] PCP - General 07/17/13 documented as of this encounter
--- OUTSIDE RECORDS SUMMARY | 2023-10-22 12:54 | XMS_ITS | Encounter Summary ---
Author Organization [facility] [place] [address] Care Team Providers Care Senior Ui Developer Name Role Phone Lolly Oliveira MD Primary Care Provider [phone] Encounter Details Date Type Department Care Team (Late st Contact Info) Description 03/15/2023 Telephone Cardiology at [address] [address] Saranya Ma Social History Tobacco Use Types [...] her to have an echo done at [facility] prior to her appt withokm there on 05/12/23. Message sent to Dr. Mcmahon asking him to put order in if he would like her to have this done. Saranya Ma Sr. Clinical Procedure [place]/Refrigerator Glazier documented in this encounter Plan of Treatment Upcoming Encounters Date Type Department Care Team (Late st Contact Info) Description 01/16/2024 10:00 AM EST Hospital Encounter Non-[place] [address] Arrived documented as of this encounter Visit Diagnoses Not on filedocumented in this encounter Care Teams Senior Ui Developer Relationship Specialty Start Date End Date Lolly Oliveira MD [address] [place] [address] PCP - General 07/17/13 documented as of this encounter
--- OUTSIDE RECORDS SUMMARY | 2023-10-22 12:54 | XMS_ITS | Encounter Summary ---
Author Organization [facility] [place] [address] Care Team Providers Care Health Technician Hearing Name Role Phone Lolly Oliveira MD Primary Care Provider [phone] Encounter Details Date Type Department Care Team (Latest Contact Info) Description 07/26/2013 9:44 AM EDT - 07/26/2013 11:59 PM EDT Hospital En[place] [address] CLINIC, Lolly So MD [address] [place], [place] [address] Mammographic microcalcification Discharge Disposition: Home Social History [...] AM EST Hospital Encounter Non-[place] [address] Arrived documented as of this encounter Procedures [...] are present on specimen digital X-ray. A stylefruits-Stereo 13 Cylinder marker clip was placed. Cranio-caudal [...] mLs documented in this encounter Care Teams Health Technician Hearing Relationship Specialty Start Date End Date Lolly Oliveira MD [address] [place] [address] PCP - General 07/17/13 documented as of this encounter
--- OUTSIDE RECORDS SUMMARY | 2023-10-22 12:54 | XMS_ITS | Encounter Summary ---
Author Organization [facility] [place] [address] Care Team Providers Care Bag Sealer Name Role Phone Lolly Oliveira MD Primary Care Provider [phone] Reason for Visit * Reason Onset Date Comments Post Procedure Call 07/30/2022 Encounter Details Date Type Department Care Team (Late st Contact Info) Description 07/30/2022 Notes Only Cardiology at [address] [phone] Rosenda Sutton, RN Post Procedure Call Social History Tobacco Use Types Packs/Day Years Used Date Smoking Tobacco: Never Alcohol Use Standard Drinks/Week Comments Not Currently 0 (1 standard drink = 0.6 oz pur e alcohol) [facility] Inpatient Questions Answer Date Recorded [...] 07/30/2022 9:59 AM EDTSummary: Post Procedure Call: BIODIESEL PRODUCTION ASSOCIATE implant EP RN Post-Procedure Note: Date of Follow Up Call: 07/30/2022 Spoke With: Patient Procedure Type (choose all that apply): ICD Performing MIRLANDE Mcmahon Date of Procedure: 07/23/2022 Date of Discharge: 07/24/2022 Follow Up EP Visit Scheduled?: No No Follow Up Visit Reason: Follow up outside Outside Location: [facility] Date of Non EP Visit: 08/12/2022 [...] Note: Follow-up Recommendations for Providers: - s/p BIODIESEL PRODUCTION ASSOCIATE-D implant - post implant QRS 130 ms [...] st Contact Info) Description 01/16/2024 10:00 AM [facility] Hospital Encounter Non-Invasive [place] [address] Arrived documented as of this encounter Visit Diagnoses Not on filedocumented in this encounter Care Teams Bag Sealer Relationship Specialty Start Date End Date Lolly Oliveira MD [address] [place] [address] PCP - General 07/17/13 documented as of this encounter
--- OUTSIDE RECORDS SUMMARY | 2023-10-22 12:54 | XMS_ITS | Encounter Summary ---
Author Organization [facility] [place] [address] Care Team Providers Care Combination Worker Name Role Phone Lolly Oliveira MD Primary Care Provider [phone] Encounter Details Date Type Department Care Team (Late st Contact Info) Description 10/09/2021 Telephone Dermatology at [address] [address] Nora Meredith LPN Social History [...] [facility] Hospital Encounter Non[place] [address] Arrived documented as of this encounter Visit Diagnoses Not on filedocumented in this encounter Care Teams Combination Worker Relationship Specialty Start Date End Date Lolly Oliveira MD [address] [place] [address] PCP - General 07/17/13 documented as of this encounter
--- OUTSIDE RECORDS SUMMARY | 2023-10-22 12:54 | XMS_ITS | Encounter Summary ---
Author Organization [facility] [place] [address] Care Team Providers Care Guest Experience Manager Name Role Phone Lolly Oliveira MD Primary Care Provider [phone] Reason for Visit * Reason Comments Skin Check Encounter Details Date Type Department Care Team (Late st Contact Info) Description 11/23/2014 10:00 AM EDT Office Visit Dermatology at [address] [phone] Clay Ramírez MD [address] [facility] [place] [address] Dermatofibroma; Nevus; Solar lentigo Discharge Disposition: Home [...] AM [facility] Hospital Encounter Non-Invasive [place] [address] Arrived documented as of this encounter Visit Diagnoses Diagnosis Dermatofibroma Benign neoplasm of skin, site unspecified Nevus Benign neoplasm of skin, site unspecified Solar lentigo Other dyschromia documented in this encounter Care Teams Guest Experience Manager Relationship Specialty Start Date End Date Lolly Oliveira MD [address] [place] [address] PCP - General 07/17/13 documented as of this encounter
--- OUTSIDE RECORDS SUMMARY | 2023-10-22 12:54 | XMS_ITS | Encounter Summary ---
Author Organization [facility] [place] [place] [address] Care Team Providers Care Peoplesoft Hrms Developer Name Role Phone Lolly Oliveira MD Primary Care Provider [phone] Reason for Referral * Diagnostic Test (Routine) - Closed Specialty Diagnoses / Procedures Referred By Contac t Referred To Contact Radiology Diagnoses Left bundle branch block Nonischemic cardiomyopathy Procedures MRI Cardiac Morphology Function With Flow Velocity Quantification wwo Contrast MRI Cardiac Morphology Function wwo Contrast Lalit Mcmahon MD [facility] [place] [address] [place] [address] Referral ID Status Reason Start Date Expiration Date V isits Requested Visits Authorized [id number] Closed Specialty Service Requested 05/06/2022 11/07/2023 2 1 Encounter Details Date Type Department Care Team (Late st Contact Info) Description 05/06/2022 Orders Only Cardiology at [address] [phone] Lalit Mcmahon MD [facility] [place] [address] [address] Left bundle branch block; Nonischemic cardiomyopathy Social [...] AM EST Hospital Encounter Non-[place] [address] Arrived documented as of this encounter Results [...] who have questions please contact the health health care social worker that requested your imaging first. ? Narrative [...] patients who have questions please contactthe health health care social worker that requested your imaging first. Lalit Mcmahon MD IMG MRI ORDERABLES documented in this encounter Visit Diagnoses Diagnosis Left bundle branch block Other left bundle branch block Nonischemic cardiomyopathy Other primary cardiomyopathies Left bundle branch block Other left bundle branch block Nonischemic cardiomyopathy Other primary cardiomyopathies documented in this encounter Care Teams Peoplesoft Hrms Developer Relationship Specialty Start Date End Date Lolly Oliveira MD [address] [place] [address] PCP - General 07/17/13 documented as of this encounter
--- OUTSIDE RECORDS SUMMARY | 2023-10-22 12:54 | XMS_ITS | Encounter Summary ---
[place] [address] Care Team Providers Care Remote Sensing Specialist Name Role Phone Lolly Oliveira MD Primary Care Provider [phone] Encounter Details Date Type Department Care Team (Latest Contact Info) Description 07/26/2013 9:45 AM EDT - 07/26/2013 11:59 PM EDT Hospital En[place] [address] Mammographic microcalcification Social History Tobacco Use Types [...] AM EST Hospital Encounter Non[place] [address] Arrived documented as of this encounter Procedures Procedure Name Priority Date/Time Associated Diagnosis Comments SURGICAL PATHOLOGY REPORT Routine 07/26/2013 12:12 PM EDT MAMMO SPECIMEN IMAGING DURING BIOPSY Routine 07/26/2013 11:58 AM EDT Mammographic microcalcification documented in this encounter Results * Surgical Pathology Report (07/26/2013 12:12 PM EDT) Final Diagnosis ? [facility] ? Provider: ?? ELENO CHRISTIAN ?? Pt. Name: ?? JING ALVARENGA ? Acc #: ?[id number] ?Pt. ? Col Date: ?? 07/26/2013 ? [...] Partially fragmented, fibrofatty needle core biopsies. ? [facility] ? Provider: ?? ELENO CHRISTIAN ?? Pt. Name: ?? JING ALVARENGA ? Acc #: ?[id number] ?Pt. ? Col Date: ?? 07/26/2013 ? [...] FCD, adenosis, DCIS 07/28/2013 8:29 AM EDT [facility] BREAST STRUCTURE / Unknown 07/26/2013 12:12 PM EDT 07/26/2013 12:12 PM EDT Eleno Christian MD PATHOLOGY/CYTOLOGY O RDERABLES Performing Organization Address City/State/[facility] Co ri Phone Number [facility] [address] * Mammo Specimen Imaging During Biopsy (07/26/2013 [...] microcalcification documented in this encounter Care Teams Remote Sensing Specialist Relationship Specialty Start Date End Date Lolly Oliveira MD [address] [place] [address] PCP - General 07/17/13 documented as of this encounter
--- OUTSIDE RECORDS SUMMARY | 2023-10-22 12:54 | XMS_ITS | Encounter Summary ---
Author Organization [facility] Address [facility] [place] [address] Care Team Providers Care Sweet Dough Mixer Name Role Phone Lolly Oliveira MD Primary Care Provider [phone] Encounter Details Date Type Department Care Team (Late st Contact Info) Description 01/29/2023 Notes Only Cardiology at [address] [address] Merle Lin PA [facility] [place] [address] Social History Tobacco Use Types Packs/Day Years [...] pdf document Date of transmission: 01/29/2023 Device anglesmith helper: BSI Device type: REAL ESTATE ASSOCIATE-D Presenting rhythm: /RVP/LVP AP 21% Right FUSING MACHINE TENDER 100% Left FUSING MACHINE TENDER: 100% Battery: 10.5 years [employer] Index rising in setting of increasing S3 intensity, increasing respiratory rate, increasing night heart rate, and increasing mean heart rate. MICKEY Villa 01/29/2023 9:06 AM documented in this encounter Plan of Treatment Upcoming Encounters Date Type Department Care Team (Late st Contact Info) Description 01/16/2024 10:00 AM EST Hospital Encounter Non-Invasive [place] [address] Arrived documented as of this encounter Visit Diagnoses Not on filedocumented in this encounter Care Teams Sweet Dough Mixer Relationship Specialty Start Date End Date Lolly Oliveira MD [address] [place] [address] PCP - General 07/17/13 documented as of this encounter
--- OUTSIDE RECORDS SUMMARY | 2023-10-22 12:54 | XMS_ITS | Encounter Summary ---
[place] [address] Care Team Providers Care Admitting Supervisor Name Role Phone Lolly Oliveira MD Primary Care Provider [phone] Encounter Details Date Type Department Care Team (Late st Contact Info) Description 04/09/2022 Refill Dermatology at [address] [address] Nora Meredith, CREATIVE COORDINATOR Social History Tobacco Use Types Packs/Day Years [...] [facility] Hospital Encounter Non[place] [address] Arrived documented as of this encounter Visit Diagnoses Not on filedocumented in this encounter Care Teams Admitting Supervisor Relationship Specialty Start Date End Date Lolly Oliveira MD [address] [place] [address] PCP - General 07/17/13 documented as of this encounter
--- OUTSIDE RECORDS SUMMARY | 2023-10-22 12:54 | XMS_ITS | Encounter Summary ---
Author Organization [facility] [place] [address] Care Team Providers Care Master Of Ceremonies Name Role Phone Lolly Oliveira MD Primary Care Provider [phone] Encounter Details Date Type Department Care Team (Late st Contact Info) Description 11/16/2022 Telephone Cardiology at [address] [phone] Luna Rousseau, RN Social History Tobacco Use [...] BP today was 118/57 at [facility] at [facility]. Pt is going twice a week to [...] [facility] Hospital Encounter Non-[place] [address] Arrived documented as of this encounter Visit Diagnoses Not on filedocumented in this encounter Care Teams Master Of Ceremonies Relationship Specialty Start Date End Date Lolly Oliveira MD [address] [place] [address] PCP - General 07/17/13 documented as of this encounter
--- OUTSIDE RECORDS SUMMARY | 2023-10-22 12:54 | XMS_ITS | Encounter Summary ---
Author Organization [facility] [place] [address] Care Team Providers Care Rail Bender Name Role Phone Lolly Oliveira MD Primary Care Provider [phone] Reason for Visit * Reason Onset Date Comments Other 07/24/2022 Implanted Cardia c Device Teaching/Education Encounter Details Date Type Department Care Team (Late st Contact Info) Description 07/24/2022 Notes Only Cardiology at [address] [phone] Letha Arroyo Other (Implanted Cardiac Device Teaching/Education) Social History Tobacco Use Types Packs/Day Years Used Date Smoking Tobacco: Never Alcohol Use Standard Drinks/Week Comments Not Currently 0 (1 standard drink = 0.6 oz pur e alcohol) [facility] Inpatient Questions Answer Date Recorded Does [...] to call the Cardiac Device [facility] at [phone] with any questions. Plan: Post op check: [...] [facility] Hospital Encounter [place] [address] Arrived documented as of this encounter Visit Diagnoses Not on filedocumented in this encounter Care Teams Rail Bender Relationship Specialty Start Date End Date Lolly Oliveira MD [address] [place] [address] PCP - General 07/17/13 documented as of this encounter
--- OUTSIDE RECORDS SUMMARY | 2023-10-22 12:54 | XMS_ITS | Encounter Summary ---
Author Organization [facility] Address [facility] [address] Care Team Providers Care Chemical Dependency Therapist Name Role Phone Lolly Oliveira MD Primary Care Provider [phone] Reason for Visit * Auth/Cert (Routine) Specialty Diagnoses / Procedures Referred By Contac t Referred To Contact Diagnoses Left bundle-branch block, unspecified Other cardiomyopathies Left bundle branch block [I44.7]Nonischemic cardiomyopathy [I42.8] Procedures PRG CATH PLMT LEFT HEART CATH & ARTS W/INJ & ANGIO IMG S&I ELECTROPHYSIOLOGY PROCEDURE Lalit Mcmahon MD [facility] [place] [address] [facility] Referral ID Status Reason Start Date Expiration Date Visits Re quested Visits Authorized [id number] 1 1 Encounter Details Date Type Department Care Team (Latest Contact Info) Description 07/23/2022 11:39 AM EDT - 07/24/2022 10:23 AM EDT Hospital [place] [id number] Lalit Mcmahon MD [facility] [place] [address] Left bundle branch block; Nonischemic cardiomyopathy; Cardiac resynchronization therapy defibrillator (CATEGORY PLANNER-D) in place Discharge Disposition: Home Social History [...] Luna Mott Patient Age: 71 y.o. Language: Danish Race: White Ethnicity: Not nor Admit date: 07/23/2022 Discharge date and time: 07/24/22 Attending Physician: Lalit Mcmahon MD Discharge Physician: Lalit Mcmahon MD Follow-up Recommendations for Providers: - s/p CATEGORY PLANNER-D implant - post implant QRS 130 ms - reviewed post-implant instructions - no medication changes - Follow up in device clinic for wound/device check in ~10 days ([facility]) Inpatient Provider Contact Information: Cardiac Electrophysiology - Discharge Diagnoses (Hospital Problems) and Secondary Diagnoses (Chronic Problems): Active Hospital Problems Diagnosis ??? HFrEF (heart failure with reduced ejection fraction) Resolved Hospital Problems No resolved problems to display. Active Non-Hospital Problems Diagnosis ??? Dermatofibroma ??? Nevus ??? Solar lentigo Operations/Major Procedures: 07/23/22: [facility] CATEGORY PLANNER-D implant History of Presentation: 71 y.o. female with a history of HFrEF, LBBB, QRS >150, NYHA II who is POD#1 of CATEGORY PLANNER-D implant ([employer]). Hospital Course: Elective admission for CATEGORY PLANNER-D implant Admitted post-implant for pain management, telemetry [...] (heart failure with reduced ejection fraction) [I50.20] CATEGORY PLANNER-D implant Admission Condition: good Indication for Admission: [...] g Refills: 3 fluticasone propionate 50 mcg/actuation Daphne, Suspension Commonly known as: Flonase 1 spray [...] the incision. Make sure to use a knitted cloth examiner (such as a towel) in between [...] F. The office scheduling phone number is [phone]. ARM MOVEMENT RESTRICTIONS POST-IMPLANT - Do not [...] please call the Cardiac ElectrophysiologyTriage Nurse at [phone], option 3. General Instructions None Discharge References/Attachments None Lalit Mcmahon MD S Cardiac Electrophysiology 07/24/2022 12:33 PM documented in this encounter Discharge Instructions * Patient Instructions* Fadi Nunez MD - 07/24/2022 8:10 AM EDT FINAL ICD/PACEMAKER RECOMMENDATIONS: 1. Standard post implant discharge instructions (see below): 2. Medications as listed above. You may use ice packs over the incision. Make sure to use a knitted cloth examiner (such as a towel) in between [...] F. The office scheduling phone number is [phone]. ARM MOVEMENT RESTRICTIONS POST-IMPLANT - Do not [...] please call the Cardiac ElectrophysiologyTriage Nurse at [phone], option 3. documented in this encounter Medications [...] with spacer fluticasone propionate (Flonase) 50 mcg/actuation Daphne, Suspension 1 spray by Each Nare route [...] Cardiac Electrophysiology Post-Implant Device Interrogation Luna Mott [id number] 07/24/2022 History: Luna Mott is a 71 y.o. female with a history of HFrEF, LBBB, QRS >150, NYHA II who is POD#1 of CATEGORY PLANNER-D implant ([employer]). Overall feels well this morning. Ready [...] WOB Neuro- A&Ox3 Device Interrogation: Data ?? Big Data Software Engineer Model # Serial # Generator [employer] [id number] Atrial Lead [employer] [id number] RV Lead [employer] 0672 [id number] LV Lead [employer] [id number] ?? Diagnostics Pacing Mode: DDD 60-130 Underlying Rhythm: [place] Atrial Episodes: None Ventricular Episodes: None FINAL PROGRAMMING: Pacing: Mode Lower rate (ppm) Upper rate (ppm) ?? DDD 60 130 VF: Rate (bpm) #Antitachycardia pacing First shock energy (J) ?? 200 Quick convert 41 VT: 170 Monitor only Monitor only ? Battery and Leads Impedances (ohms) Sensing (mV) Thresholds HV RA RV LV RA RV LV RA RV LV 73 123 [id number] (LVa) 7.7 13.1 >25 0.4V @ 0.4 ms 0.4V @ 0.4 ms 0.5 V @ 1.0 ms POD#1 CXR: All leads in nominal positioning Impression: 71 y.o. female who is s/p CATEGORY PLANNER-D implant for LBBB, NYHA II, HFrEF. - Appropriate device function post-implant - CXR negative for post-implant complications - Changed sensed AV delay from 130 to 110 Plan: 1. Reviewed standard post-implant discharge instructions (see patient instructions) including arm restrictions, wound care, bathing, and driving 2. No medication changes. 3. Follow up in device clinic for wound/device check in ~10 days ([facility]) Fadi Nunez MD 07/24/2022 Pager: [phone] I met with the patient today and [...] agreement. ? Dr. Lalit Mcmahon, electrophysiology attending ([id number]) * Zaria Wright RN - 07/23/2022 8:28 [...] HF, QRS > 150 ms presents for CATEGORY PLANNER-D placement. ROS: Denies recent fevers or chills [...] 0.9) flush 5 mL 5 mL Intravenous [id number] ramos MD ??? sodium chloride 0.9 % [...] HF, QRS > 150 ms presents for CATEGORY PLANNER-D placement. Backup would be LBBAP lead. Antibiotics: cefazolin Rationales for, intended benefits and potential risk of planned procedures reviewed. The patient indicated understanding and agreement with the plan. Informed consent signed. Procedure checklist completed. Fadi Nunez MD Cardiac Electrophysiology Fellow [facility] Pager [phone] 07/23/2022 I met with the patient today [...] agreement. ? Dr. Lalit Mcmahon, electrophysiology attending ([id number]) documented in this encounter Miscellaneous Notes * Brief Op Note - Lalit Mcmahon MD - 07/23/2022 4:04 PM EDT Brief Operative Note Patient Name: Luna Mott : [id number] MR#: [id number] Case Date: 07/23/2022 Surgeon: Surgeon(s) and Role: [...] AM EST Hospital Encounter Non[place] [address] Arrived Scheduled Orders Name Type Priority Associated Diagnoses Orde r Schedule EKG 12 Lead ECG Routine Cardiac resynchronization therapy defibrillator (CATEGORY PLANNER-D) in place One Time for 1 Occurrences [...] (Bezet) 522 ms MUSE SYSTEM Calculated R Marcus 78 degrees MUSE SYSTEM Calculated T Marcus -71 degrees MUSE SYSTEM INTERPRETATION AV dual-paced [...] who have questions please contact the health pulmonary care nurse that requested your imaging first. ? Electronically signed by: Kwame Vargas MD, [facility] ([phone]), at 07/24/2022 6:43 AM Narrative 07/24/2022 6:43 [...] patients who have questions please contactthe health pulmonary care nurse that requested your imaging first. Electronically signed by: Kwame Vargas MD, [facility]([phone]), at 07/24/2022 6:43 AM Lalit Mcmahon MD IMG DX ORDERABLES * ELECTROPHYSIOLOGY PROCEDURE (07/23/2022 1:11 PM EDT) Anatomical Region Laterality Modality Other Narrative 07/23/2022 4:24 PM EDT Table formatting from the original result was not included. BIVENTRICULAR ICD IMPLANTATION Sanitation Laborer: Lalit Mcmahon MD Fellow: Fadi Nunez MD [...] lateral branch of the CS in the MALTESE view. This branch was cannulated with a [...] the entire procedure. LEAD AND GENERATOR DATA: Big Data Software Engineer Model # Serial # Generator [employer] [id number] Atrial Lead [employer] [id number] RV Lead [employer] [id number] [id number] LV Lead [employer] [id number] PACE/SENSE DATA: Sensed wave (mV) Threshold (V) [...] (cGycm2) 300 CONCLUSIONS: Successful implantation of a [employer] biventricular ICD for primary prevention and treatment of symptoms related to congestive heart failure. Follow up in EP clinic in 1-2 months. Procedures performed: new ICD system ( cpt 91163-V3); implant LV lead at time of ICD insertion (cpt 18815) I have read, edited and approve of this report: Lalit Mcmahon MD S Cardiac Electrophysiology 07/23/2022 4:22 PM Procedure Note Lalit Mcmahon MD - 07/23/2022 BIVENTRICULAR ICD IMPLANTATION Sanitation Laborer: Lalit Mcmahon MD Fellow: Fadi Nunez MD [...] appropriate lateralbranch of the CS in the MALTESE view. This branch was cannulated with a [...] in the entireprocedure. LEAD AND GENERATOR DATA: Big Data Software Engineer Model # Serial # Generator [employer] [id number] Atrial Lead [employer] [id number] [id number] RV Lead [employer] 0672 [id number] LV Lead [employer] 4674 [id number] PACE/SENSE DATA: Sensed wave (mV) Threshold (V) [...] (cGycm2) 300 CONCLUSIONS: Successful implantation of a [employer] biventricular ICD forprimary prevention and treatment of symptoms related to congestive heartfailure. Follow up in EP clinic in 1-2 months. Procedures performed: new ICD system ( cpt 19678-H5); implant LV lead attime of ICD insertion (cpt 19865) I have read, edited and approve of this report: Lalit Mcmahon MD [facility] Cardiac Electrophysiology 07/23/2022 4:22 PM Lalit Mcmahon MD EP PROCEDURE ORDERAB LES * POCT Glucose (07/23/2022 12:54 PM EDT) Glucose, POC 83 65 - 199 mg/dL [facility] Comment: Supplemental ranges: <140 mg/dL before meals <180 mg/dL all other times of the day Blood 07/23/2022 12:5 4 PM EDT 07/23/2022 12:54 PM EDT Lalit Mcmahon MD POINT OF CARE TEST O RDERABLES Performing Organization Address [facility] Co de Phone Number [facility] [place] [address] * EKG 12 Lead (07/23/2022 12:33 PM EDT) Ventricular rate 72 BPM MUSE SYSTEM Atrial Rate 72 BPM MUSE SYSTEM P-R Interval 158 ms MUSE SYSTEM QRS Duration 176 ms MUSE SYSTEM Q-T Interval 458 ms MUSE SYSTEM QTC Calculated (Bezet) 501 ms MUSE SYSTEM Calculated P Marcus 34 degrees MUSE SYSTEM Calculated R Marcus 12 degrees MUSE SYSTEM Calculated T Marcus -173 degrees MUSE SYSTEM INTERPRETATION Normal sinus rhythm Left bundle branch block Abnormal ECG No previous ECGs available Confirmed by MD Salome, Lalit ([id number]) on 07/23/2022 1:19:03 PM MUSE SYSTEM 07/23/2022 12:3 3 PM EDT 07/23/2022 1:19 PM EDT Lalit Mcmahon MD ECG ORDERABLES Performing Organization Address [facility] de Phone Number MUSE SYSTEM * Differential, Automated (07/23/2022 11:55 AM EDT) Neutrophil % 62.6 % [facility] Neutrophil Absolute 4.14 1.70 - 6.10 x10(3)/[facility] Lymph % 27.0 % [facility] Lymphocytes Abs 1.8 0.9 - 3.2 x10(3)/[facility] Monocyte % 7.3 % [facility] Monocyte Abs 0.5 0.3 - 0.9 x10(3)/[facility] Eos % 2.3 % [facility] Eosinophils Abs 0.2 0.0 - 0.4 x10(3)/[facility] Basophil % 0.6 % [facility] Baso Absolute 0.0 0.0 - 0.1 x10(3)/[facility] Immature Gran % 0.20 % [facility] Comment: Immature granulocytes(IG's)percentage and absolute count will include metamyelocytes, myelocytes, and promyelocytes. Blood smears from CBCs yielding IG's will be scanned manually for concordance. If this scan disagrees with the automated IG or if promyelocytes are noted, a manual differential will be performed. Immature Gran Absolute 0.01 0.00 - 0.04 x10(3)/[facility] Blood 07/23/2022 11:5 5 AM EDT 07/23/2022 12:07 PM EDT Narrative Resulting Agency Comment Spec In Lab Lalit Mcmahon MD HEMATOLOGY ORDERABLE S [facility] [place] [address] * Hemogram (07/23/2022 11:55 AM EDT) White Blood Cell 6.6 4.0 - 9.5 x10(3)/[facility] Red Blood Cell 4.50 4.00 - 5.21 x10(6)/[facility] Hemoglobin 13.7 11.7 - 15.5 g/dL [facility] Hematocrit 42.5 35.7 - 45.8 % [facility] Mean Cell Volume 94.4 82.6 - 94.4 fL [facility] Mean Cell Hemoglobin 30.4 27.1 - 32.0 pg [facility] Mean Cell Hemoglobin Concentration 32.2 31.7 - 35.0 g/dL [facility] Platelet 193 145 - 357 x10(3)/[facility] RDW Standard Deviation 45.5 37.0 - 46.0 fL [facility] RDW coefficient of variation 13.2 11.5 - 14.1 % [facility] Mean Platelet Volume 9.5 7.6 - 12.9 fL [facility] NRBC% auto 0.0 % [facility] NRBC Absolute 0.000 0.000 - 0.000 x10(3)/mcL [facility] Blood 07/23/2022 11:5 5 AM EDT 07/23/2022 12:07 PM EDT Narrative Resulting Agency Comment Spec In Lab Lalit Mcmahon MD HEMATOLOGY ORDERABLE S [facility] [address] [place] [address] * (ABNORMAL) BMP w/fasting Glucose (07/23/2022 11:55 AM EDT) Glucose Fasting 110(H) 65 - 99 mg/dL [facility] Comment: ?Fasting* Glucose Interpretive [...] of Diabetes Mellitus, Position Statement from the [place] [employer]. ??Diabetes Care, Volume 33, Supplement 1, Mar 2009 Blood Urea Nitrogen 23(H) 8 - 18 mg/dL [facility] Creatinine 1.07 0.70 - 1.20 mg/dL [facility] Sodium 141 135 - 145 mmol/L [facility] Potassium 4.8 3.5 - 5.0 mmol/L [facility] Comment: Please note: ??Patients with WBC >100,000 may have falsely elevated Potassium levels. ??For accurate Potassium quantification in these patients send serum separator tube (gold top) for subsequent determinations. ??Contact the Clinical Chemistry Laboratory if there are any questions. Chloride 106 98 - 107 mmol/L [facility] Carbon Dioxide 26 22 - 31 mmol/L [facility] Anion Gap 9 5 - 15 mmol/L [facility] Calcium 9.7 8.5 - 10.5 mg/dL [facility] Est Glomerular Filtration Rate 55(L) >=60 mL/min/1. 73 m?? [facility] Comment: This patient's estimated [...] Mcmahon MD CHEMISTRY ORDERABLES Performing Organization Address [facility] Co de Phone Number [facility] [place] [address] * Prothrombin Time (07/23/2022 11:55 AM EDT) Prothrombin Time 11.7 9.4 - 12.5 sec [facility] International Normalization Ratio 1.0 [facility] Comment: An INR <2.0 [...] MD HEMATOLOGY ORDERABLE S Performing Organization Address City/[facility] Co de Phone Number [facility] [place] [address] documented in this encounter Visit Diagnoses Diagnosis HFrEF (heart failure with reduced ejection fraction)- Primary Left bundle branch block Other left bundle branch block Nonischemic cardiomyopathy Other primary cardiomyopathies Cardiac resynchronization therapy defibrillator (CATEGORY PLANNER-D) in place Left bundle branch block Other [...] Routine documented in this encounter Care Teams Chemical Dependency Therapist Relationship Specialty Start Date End Date Lolly Oliveira MD [address] [place] [address] PCP - General 07/17/13 documented as of this encounter
--- OUTSIDE RECORDS SUMMARY | 2023-10-22 12:54 | XMS_ITS | Encounter Summary ---
Author Organization Pending Sale To [facility] [place] [address] Care Team Providers Care Lens Shaper Grinder Name Role Phone Lolly Oliveira MD Primary Care Provider [phone] Encounter Details Date Type Department Care Team (Latest Contact Info) Description 07/18/2013 Orders [place] [phone] Alia Fraire MD [facility] [place] [address] Mammographic microcalcification (Primary Dx) Social History Tobacco [...] EST Hospital Encounter Non-Invasive [place] [phone] Arrived documented as of this encounter Results [...] are present on specimen digital X-ray. A Projjixrk Eviva-Stereo 13 Cylinder marker clip was placed. [...] calcifications are present on specimendigital X-ray. A Projjixrk Eviva-Stereo 13 Cylinder marker clip was placed. [...] not layer and, therefore, are not sales representative womens health of milk of calcium. Again, these have [...] not layer and, therefore, are not sales representative womens health of milk of calcium. Again, these have an amorphous andpunctate appearance and remain indeterminate. Stereotactic guided biopsy isrecommended. Alia Fraire MD IMG MAMMO ORDERABLES documented in this encounter Visit Diagnoses Diagnosis Mammographic microcalcification- Primary Mammographic microcalcification Mammographic microcalcification Mammographic microcalcification Mammographic microcalcification documented in this encounter Care Teams Lens Shaper Grinder Relationship Specialty Start Date End Date Lolly Oliveira MD [address] [place] [address] PCP - General 07/17/13 documented as of this encounter
--- OUTSIDE RECORDS SUMMARY | 2023-10-22 12:54 | XMS_ITS | Encounter Summary ---
Author Organization [facility] [place] [address] Care Team Providers Care Hydrogen Plant Operations Manager Name Role Phone Lolly Oliveira MD Primary Care Provider [phone] Reason for Visit * Auth/Cert (Routine) Specialty Diagnoses / Procedures Referred By Contac t Referred To Contact Diagnoses Left bundle-branch block, unspecified Other cardiomyopathies Left bundle branch block [I44.7]Nonischemic cardiomyopathy [I42.8] Procedures PRG CATH PLMT LEFT HEART CATH & ARTS W/INJ & ANGIO IMG S&I ELECTROPHYSIOLOGY PROCEDURE Lalit Mcmahon MD [facility] [place] [address] [facility] Referral ID Status Reason Start Date Expiration Date Visits Re quested Visits Authorized [id number] 1 1 Encounter Details Date Type Department Care Team (Late st Contact Info) Description 07/23/2022 1:00 PM EDT - 07/23/2022 5:30 PM EDT Surgery [place] [address] Lalit Mcmahon MD [facility] [place] [address] ELECTROPHYSIOLOGY PROCEDURE Social History Tobacco Use Types Packs/Day Years Used Date Smoking Tobacco: Never Tobacco Cessation:Counseling Given: Not Answered Alcohol Use Standard Drinks/Week Comments Not Currently 0 (1 standard drink = 0.6 oz pur e alcohol) [facility] Inpatient Questions Answer Date Recorded Does [...] Luna Mott Patient Age: 71 y.o. Language: Greek Race: White Ethnicity: Not nor Admit date: 07/23/2022 Discharge date and time: 07/24/22 Attending Physician: Lalit Mcmahon MD Discharge Physician: Lalit Mcmahon MD Follow-up Recommendations for Providers: - s/p HOUSE MOVER HELPER-D implant - post implant QRS 130 ms [...] Solar lentigo Operations/Major Procedures: 07/23/22: [facility] HOUSE MOVER HELPER-D implant History of Presentation: 71 y.o. female with a history of HFrEF, LBBB, QRS >150, NYHA II who is POD#1 of HOUSE MOVER HELPER-D implant ([employer]). Hospital Course: Elective admission for HOUSE MOVER HELPER-D implant Admitted post-implant for pain management, telemetry [...] (heart failure with reduced ejection fraction) [I50.20] HOUSE MOVER HELPER-D implant Admission Condition: good Indication for Admission: [...] g Refills: 3 fluticasone propionate 50 mcg/actuation [place], Suspension Commonly known as: Flonase 1 spray [...] the incision. Make sure to use a clothes presser (such as a towel) in between the [...] F. The office scheduling phone number is [phone]. ARM MOVEMENT RESTRICTIONS POST-IMPLANT - Do not [...] please call the Cardiac ElectrophysiologyTriage Nurse at [phone], option 3. General Instructions None Discharge References/Attachments None Lalit Mcmahon MD S Cardiac Electrophysiology 07/24/2022 12:33 PM documented in this encounter Discharge Instructions * Patient Instructions* Fadi Nunez MD - 07/24/2022 8:10 AM EDT FINAL ICD/PACEMAKER RECOMMENDATIONS: 1. Standard post implant discharge instructions (see below): 2. Medications as listed above. You may use ice packs over the incision. Make sure to use a clothes presser (such as a towel) in between the [...] F. The office scheduling phone number is [phone]. ARM MOVEMENT RESTRICTIONS POST-IMPLANT - Do not [...] please call the Cardiac ElectrophysiologyTriage Nurse at [phone], option 3. documented in this encounter Medications [...] with spacer fluticasone propionate (Flonase) 50 mcg/actuation [place], Suspension 1 spray by Each Nare route [...] Cardiac Electrophysiology Post-Implant Device Interrogation Luna Mott [id number] 07/24/2022 History: Luna Mott is a 71 y.o. female with a history of HFrEF, LBBB, QRS >150, NYHA II who is POD#1 of HOUSE MOVER HELPER-D implant ([employer]). Overall feels well this morning. Ready [...] WOB Neuro- A&Ox3 Device Interrogation: Data ?? Turnaround Engineer Model # Serial # Generator [employer] [id number] Atrial Lead [employer] [id number] RV Lead [employer] 0672 [id number] LV Lead [employer] [id number] ?? Diagnostics Pacing Mode: DDD 60-130 Underlying Rhythm: [place] Atrial Episodes: None Ventricular Episodes: None FINAL PROGRAMMING: Pacing: Mode Lower rate (ppm) Upper rate (ppm) ?? DDD 60 130 VF: Rate (bpm) #Antitachycardia pacing First shock energy (J) ?? 200 Quick convert 41 VT: 170 Monitor only Monitor only ? Battery and Leads Impedances (ohms) Sensing (mV) Thresholds HV RA RV LV RA RV LV RA RV LV 73 [phone] (LVa) 7.7 13.1 >25 0.4V @ 0.4 ms 0.4V @ 0.4 ms 0.5 V @ 1.0 ms POD#1 CXR: All leads in nominal positioning Impression: 71 y.o. female who is s/p HOUSE MOVER HELPER-D implant for LBBB, NYHA II, HFrEF. - [...] ([facility]) Fadi Nunez MD 07/24/2022 Pager: [phone] I met with the patient today and [...] agreement. ? Dr. Lalit Mcmahon, electrophysiology attending ([id number]) * Zaria Wright RN - 07/23/2022 8:28 [...] HF, QRS > 150 ms presents for HOUSE MOVER HELPER-D placement. ROS: Denies recent fevers or chills [...] 0.9) flush 5 mL 5 mL Intravenous [id number] ramos MD ??? sodium chloride 0.9 % [...] HF, QRS > 150 ms presents for HOUSE MOVER HELPER-D placement. Backup would be LBBAP lead. Antibiotics: cefazolin Rationales for, intended benefits and potential risk of planned procedures reviewed. The patient indicated understanding and agreement with the plan. Informed consent signed. Procedure checklist completed. Fadi Nunez MD Cardiac Electrophysiology Fellow [facility] Pager [phone] 07/23/2022 I met with the patient today [...] agreement. ? Dr. Lalit Mcmahon, electrophysiology attending ([id number]) documented in this encounter Miscellaneous Notes * Brief Op Note - Lalit Mcmahon MD - 07/23/2022 4:04 PM EDT Brief Operative Note Patient Name: Luna Mott : [id number] MR#: [id number] Case Date: 07/23/2022 Surgeon: Surgeon(s) and Role: [...] AM EST Hospital Encounter Non-[place] [address] Arrived Scheduled Orders Name Type Priority Associated Diagnoses Orde r Schedule EKG 12 Lead ECG Routine Cardiac resynchronization therapy defibrillator (HOUSE MOVER HELPER-D) in place One Time for 1 Occurrences [...] (Bezet) 522 ms MUSE SYSTEM Calculated R [place] 78 degrees MUSE SYSTEM Calculated T [place] -71 degrees MUSE SYSTEM INTERPRETATION AV dual-paced [...] who have questions please contact the health pet caretaker that requested your imaging first. ? Narrative [...] patients who have questions please contactthe health pet caretaker that requested your imaging first. Lalit Mcmahon MD IMG DX ORDERABLES * ELECTROPHYSIOLOGY PROCEDURE (07/23/2022 1:11 PM EDT) Anatomical Region Laterality Modality Other Narrative 07/23/2022 4:24 PM EDT Table formatting from the original result was not included. BIVENTRICULAR ICD IMPLANTATION Retention Representative: Lalit Mcmahon MD Fellow: Fadi Nunez MD [...] lateral branch of the CS in the HUNGARIAN view. This branch was cannulated with a [...] the entire procedure. LEAD AND GENERATOR DATA: Turnaround Engineer Model # Serial # Generator [employer] [id number] Atrial Lead [employer] [id number] RV Lead [employer] 0672 [id number] LV Lead [employer] [id number] PACE/SENSE DATA: Sensed wave (mV) Threshold (V) [...] (cGycm2) 300 CONCLUSIONS: Successful implantation of a [employer] biventricular ICD for primary prevention and treatment of symptoms related to congestive heart failure. Follow up in EP clinic in 1-2 months. Procedures performed: new ICD system ( cpt 58802-Q6); implant LV lead at time of ICD insertion (cpt 16797) I have read, edited and approve of this report: Lalit Mcmahon MD [facility] Cardiac Electrophysiology 07/23/2022 4:22 PM Procedure Note Lalit Mcmahon MD - 07/23/2022 BIVENTRICULAR ICD IMPLANTATION Retention Representative: Lalit Mcmahon MD Fellow: Fadi Nunez MD [...] appropriate lateralbranch of the CS in the HUNGARIAN view. This branch was cannulated with a [...] in the entireprocedure. LEAD AND GENERATOR DATA: Turnaround Engineer Model # Serial # Generator [employer] [id number] Atrial Lead [employer] [id number] [id number] RV Lead [employer] [id number] [id number] LV Lead [employer] [id number] [id number] PACE/SENSE DATA: Sensed wave (mV) Threshold (V) [...] (cGycm2) 300 CONCLUSIONS: Successful implantation of a [employer] biventricular ICD forprimary prevention and treatment of symptoms related to congestive heartfailure. Follow up in EP clinic in 1-2 months. Procedures performed: new ICD system ( cpt 25552-D1); implant LV lead attime of ICD insertion (cpt 28885) I have read, edited and approve of this report: Lalit Mcmahon MD S Cardiac Electrophysiology 07/23/2022 4:22 PM Lalit Mcmahon MD EP PROCEDURE ORDERAB LES * POCT Glucose (07/23/2022 12:54 PM EDT) [facility] Signature Glucose, POC 83 65 - 199 mg/dL [facility] Comment: Supplemental ranges: <140 mg/dL before meals <180 mg/dL all other times of the day Blood 07/23/2022 12:5 4 PM EDT 07/23/2022 12:54 PM EDT Lalit Mcmahon MD POINT OF CARE TEST O RDERABLES Performing Organization Address City/[facility]/ZIP Co de Phone Number [facility] [place] [address] * EKG 12 Lead (07/23/2022 12:33 PM EDT) Ventricular rate 72 BPM MUSE SYSTEM Atrial Rate 72 BPM MUSE SYSTEM P-R Interval 158 ms MUSE SYSTEM QRS Duration 176 ms MUSE SYSTEM Q-T Interval 458 ms MUSE SYSTEM QTC Calculated (Bezet) 501 ms MUSE SYSTEM Calculated P Stap[place] 34 degrees MUSE SYSTEM Calculated R [place] 12 degrees MUSE SYSTEM Calculated T [place]ap[place] -173 degrees MUSE SYSTEM INTERPRETATION Normal sinus rhythm Left bundle branch block Abnormal ECG No previous ECGs available Confirmed by MD Salome, Lalit ([id number]) on 07/23/2022 1:19:03 PM MUSE SYSTEM 07/23/2022 12:3 3 PM EDT 07/23/2022 1:19 PM EDT Lalit Mcmahon MD ECG ORDERABLES Performing Organization Address [facility]/ZIP Co de Phone Number MUSE SYSTEM * Differential, Automated (07/23/2022 11:55 AM EDT) Neutrophil % 62.6 % [facility] Neutrophil Absolute 4.14 1.70 - 6.10 x10(3)/[facility] Lymph % 27.0 % [facility] Lymphocytes Abs 1.8 0.9 - 3.2 x10(3)/[facility] Monocyte % 7.3 % [facility] Monocyte Abs 0.5 0.3 - 0.9 x10(3)/[facility] Eos % 2.3 % [facility] Eosinophils Abs 0.2 0.0 - 0.4 x10(3)/[facility] Basophil % 0.6 % [facility] Baso Absolute 0.0 0.0 - 0.1 x10(3)/[facility] Immature Gran % 0.20 % [facility] Comment: Immature granulocytes(IG's)percentage and absolute count will include metamyelocytes, myelocytes, and promyelocytes. Blood smears from CBCs yielding IG's will be scanned manually for concordance. If this scan disagrees with the automated IG or if promyelocytes are noted, a manual differential will be performed. Immature Gran Absolute 0.01 0.00 - 0.04 x10(3)/[facility] Blood 07/23/2022 11:5 5 AM EDT 07/23/2022 12:07 PM EDT Narrative Resulting Agency Comment Spec In Lab Lalit Mcmahon MD HEMATOLOGY ORDERABLE S [facility] [place] [address] * Hemogram (07/23/2022 11:55 AM EDT) White Blood Cell 6.6 4.0 - 9.5 x10(3)/[facility] Red Blood Cell 4.50 4.00 - 5.21 x10(6)/[facility] Hemoglobin 13.7 11.7 - 15.5 g/dL [facility] Hematocrit 42.5 35.7 - 45.8 % [facility] Mean Cell Volume 94.4 82.6 - 94.4 fL [facility] Mean Cell Hemoglobin 30.4 27.1 - 32.0 pg [facility] Mean Cell Hemoglobin Concentration 32.2 31.7 - 35.0 g/dL [facility] Platelet 193 145 - 357 x10(3)/[facility] RDW Standard Deviation 45.5 37.0 - 46.0 fL [facility] RDW coefficient of variation 13.2 11.5 - 14.1 % [facility] Mean Platelet Volume 9.5 7.6 - 12.9 fL [facility] NRBC% auto 0.0 % [facility] NRBC Absolute 0.000 0.000 - 0.000 x10(3)/[facility] Blood 07/23/2022 11:5 5 AM EDT 07/23/2022 12:07 PM EDT Narrative Resulting Agency Comment Spec In Lab Lalit Mcmahon MD HEMATOLOGY ORDERABLE S [facility] [place] [address] * (ABNORMAL) BMP w/fasting Glucose (07/23/2022 11:55 AM EDT) Glucose Fasting 110(H) 65 - 99 mg/dL [facility] Comment: ?Fasting* Glucose Interpretive Criteria Normal [...] of Diabetes Mellitus, Position Statement from the [place] [employer]. ??Diabetes Care, Volume 33, Supplement 1, Mar 2009 Blood Urea Nitrogen 23(H) 8 - 18 mg/dL [facility] Creatinine 1.07 0.70 - 1.20 mg/dL [facility] Sodium 141 135 - 145 mmol/L [facility] Potassium 4.8 3.5 - 5.0 mmol/L [facility] Comment: Please note: ??Patients with WBC >100,000 may have falsely elevated Potassium levels. ??For accurate Potassium quantification in these patients send serum separator tube (gold top) for subsequent determinations. ??Contact the Clinical Chemistry Laboratory if there are any questions. Chloride 106 98 - 107 mmol/L [facility] Carbon Dioxide 26 22 - 31 mmol/L [facility] Anion Gap 9 5 - 15 mmol/L [facility] Calcium 9.7 8.5 - 10.5 mg/dL [facility] Est Glomerular Filtration Rate 55(L) >=60 mL/min/1. 73 m?? [facility] Comment: This patient's estimated GFR [...] Mcmahon MD CHEMISTRY ORDERABLES Performing Organization Address [facility] Co de Phone Number [facility] [place] [address] * Prothrombin Time (07/23/2022 11:55 AM EDT) Prothrombin Time 11.7 9.4 - 12.5 sec [facility] International Normalization Ratio 1.0 [facility] Comment: An INR <2.0 indicates adequate [...] MD HEMATOLOGY ORDERABLE S Performing Organization Address City/[facility] Co de Phone Number [facility] [place] [address] documented in this encounter Visit Diagnoses Diagnosis HFrEF (heart failure with reduced ejection fraction)- Primary Left bundle branch block Other left bundle branch block Nonischemic cardiomyopathy Other primary cardiomyopathies Cardiac resynchronization therapy defibrillator (HOUSE MOVER HELPER-D) in place Left bundle branch block Other [...] Routine documented in this encounter Care Teams Hydrogen Plant Operations Manager Relationship Specialty Start Date End Date Lolly Oliveira MD [address] [place] [address] PCP - General 07/17/13 documented as of this encounter
--- OUTSIDE RECORDS SUMMARY | 2023-10-22 12:54 | XMS_ITS | Encounter Summary ---
Author Organization [facility] [place] [address] Care Team Providers Care Call Center Manager Name Role Phone Lolly Oliveira MD Primary Care Provider [phone] Reason for Visit * Diagnostic Test (Routine) - Closed Specialty Diagnoses / Procedures Referred By Contac t Referred To Contact Radiology Diagnoses Left bundle branch block Nonischemic cardiomyopathy Procedures MRI Cardiac Morphology Function With Flow Velocity Quantification wwo Contrast MRI Cardiac Morphology Function wwo Contrast Lalit Mcmahon MD [facility] [place] [address] [facility] [place] [address] Referral ID Status Reason Start Date Expiration Date V isits Requested Visits Authorized [id number] Closed Specialty Service Requested 05/06/2022 11/07/2023 2 1 Encounter Details Date Type Department Care Team (Latest Contact Info) Description 07/14/2022 9:09 AM EDT - 07/14/2022 11:59 PM EDT Hospital [place] [address] Lalit Mcmahon MD [facility] [place] [address] Discharge Disposition: Home Social History Tobacco Use [...] with spacer fluticasone propionate (Flonase) 50 mcg/actuation [place], Suspension 1 spray by Each Nare route [...] AM EST Hospital Encounter Non-Invasive [place] [address] Arrived documented as of this [...] mLs documented in this encounter Care Teams Call Center Manager Relationship Specialty Start Date End Date Lolly Oliveira MD [address] [place] [address] PCP - General 07/17/13 documented as of this encounter
--- OUTSIDE RECORDS SUMMARY | 2023-10-22 12:54 | XMS_ITS | Encounter Summary ---
[place] [address] Care Team Providers Care Sumo Wrestler Name Role Phone Lolly Oliveira MD Primary Care Provider [phone] Encounter Details Date Type Department Care Team [...] AM EST Hospital Encounter Non[place] [address] Arrived documented as of this encounter Visit Diagnoses Not on filedocumented in this encounter Care Teams Sumo Wrestler Relationship Specialty Start Date End Date Lolly Oliveira MD [address] [place] [address] PCP - General 07/17/13 documented as of this encounter
--- OUTSIDE RECORDS SUMMARY | 2023-10-22 12:54 | XMS_ITS | Encounter Summary ---
[place] [address] Care Team Providers Care Heater Worker Name Role Phone Lolly Oliveira MD Primary Care Provider [phone] Encounter Details Date Type Department Care Team [...] AM EST Hospital Encounter Non[place] [address] Arrived documented as of this encounter Visit Diagnoses Not on filedocumented in this encounter Care Teams Heater Worker Relationship Specialty Start Date End Date Lolly Oliveira MD [address] [place] [address] PCP - General 07/17/13 documented as of this encounter
--- OUTSIDE RECORDS SUMMARY | 2023-10-22 12:54 | XMS_ITS | Encounter Summary ---
Author Organization [facility] Address [facility] [place] [address] Care Team Providers Care Hazardous Material Specialist Name Role Phone Lolly Oliveira MD Primary Care Provider [phone] Encounter Details Date Type Department Care Team (Late st Contact Info) Description 11/11/2022 Orders Only Cardiology at [address] [address] Lalit Mcmahon MD [facility] [place] [address] Nonischemic cardiomyopathy Social History Tobacco Use Types Packs/Day Years Used Date Smoking Tobacco: Never Alcohol Use Standard Drinks/Week Comments Not Currently 0 (1 standard drink = 0.6 oz pur e alcohol) [facility] Inpatient Questions Answer Date Recorded Does Anyone [...] [facility] Hospital Encounter Non-Invasive [place] [address] Arrived documented as of this encounter Visit Diagnoses Diagnosis Nonischemic cardiomyopathy Other primary cardiomyopathies documented in this encounter Care Teams Hazardous Material Specialist Relationship Specialty Start Date End Date Berrian, Lolly M, MD [address] [place] [address] PCP - General 07/17/13 documented as of this encounter
--- OUTSIDE RECORDS SUMMARY | 2023-10-22 12:54 | XMS_ITS | Encounter Summary ---
[place] [address] Care Team Providers Care Master Printer Name Role Phone Lolly Oliveira MD Primary Care Provider [phone] Encounter Details Date Type Department Care Team [...] AM EST Hospital Encounter Non-[place] [address] Arrived documented as of this encounter Visit Diagnoses Not on filedocumented in this encounter Care Teams Master Printer Relationship Specialty Start Date End Date Lolly Oliveira MD [address] [place] [address] PCP - General 07/17/13 documented as of this encounter
--- OUTSIDE RECORDS SUMMARY | 2023-10-22 12:55 | XMS_ITS | Encounter Summary ---
Author Organization [facility] [place] [address] Care Team Providers Care Canteen Operator Name Role Phone Unavailable Primary Care Provider Unavailabl e Encounter Details Date Type Department Care Team (Late st Contact Info) Description 07/14/2013 External Results XRay at [address] [place] [address] Provider, Scanning Social History Tobacco Use Types [...] AM EST Hospital Encounter Non-Invasive Cardiology Lab [facility] [place] [address] Arrived documented as of this encounter Procedures [...]
--- OUTSIDE RECORDS SUMMARY | 2023-10-22 12:55 | XMS_ITS | Encounter Summary ---
Author Organization [facility] [place] [address] Care Team Providers Care Peanut Roaster Name Role Phone Lolly Oliveira MD Primary Care Provider [phone] Encounter Details Date Type Department Care Team (Late st Contact Info) Description 06/29/2011 [place] [address] Eleno Christian MD [facility] [place] [address] Social History Tobacco Use Types Packs/Day Years [...] AM EST Hospital Encounter Non-[place] [address] Arrived documented as of this encounter Procedures [...] is a Non-reportable exam Eleno Christian MD [facility] FILM LIBRARY ORD ERABLES documented in this encounter Visit Diagnoses Not on filedocumented in this encounter Care Teams Peanut Roaster Relationship Specialty Start Date End Date Lolly Oliveira MD [address] [place] [address] PCP - General 07/17/13 documented as of this encounter
--- OUTSIDE RECORDS SUMMARY | 2023-10-22 12:55 | XMS_ITS | Encounter Summary ---
Author Organization [facility] [place] [address] Care Team Providers Care Bacon Skin Lifter Name Role Phone Unavailable Primary Care Provider Unavailabl e Encounter Details Date Type Department Care Team (Late st Contact Info) Description 07/04/2012 [place] [address] Eleno Christian MD [facility] [place] [address] Social History Tobacco Use Types Packs/Day Years [...] AM EST Hospital Encounter Non-[place]vasive [place] [address] Arrived documented as of this encounter Procedures [...] is a Non-reportable exam Eleno Christian MD [facility] FILM LIBRARY ORD ERABLES documented in this encounter Visit Diagnoses Not on filedocumented in this encounter
--- OUTSIDE RECORDS SUMMARY | 2023-10-22 12:55 | XMS_ITS | Encounter Summary ---
Author Organization [facility] [place] [address] Care Team Providers Care Hydroelectric Production Manager Name Role Phone Unavailable Primary Care Provider Unavailabl e Encounter Details Date Type Department Care Team (Late st Contact Info) Description 07/14/2013 [place] [address] Eleno Christian MD [facility] [place] [address] Social History Tobacco Use Types Packs/Day Years [...] AM EST Hospital Encounter Non-Invasive [place] [address] Arrived documented as of this encounter Visit Diagnoses Not on filedocumented in this encounter
--- OUTSIDE RECORDS SUMMARY | 2023-10-22 12:55 | XMS_ITS | Encounter Summary ---
Author Organization Formerly [facility] [place] [address] Care Team Providers Care Special Diet Cook Name Role Phone Lolly Oliveira MD Primary Care Provider [phone] Encounter Details Date Type Department Care Team (Latest Contact Info) Description 07/17/2013 8:40 AM EDT - 07/17/2013 11:59 PM EDT Hospital Encounter XRay at [address] [place] [phone] CLIN[address], DR [facility] Discharge Disposition: Home Social [...] AM EST Hospital Encounter Non-Invasive [place] [address] Arrived documented as of this encounter Visit Diagnoses Not on filedocumented in this encounter Care Teams Special Diet Cook Relationship Specialty Start Date End Date Lolly Oliveira MD [address] [place] [address] PCP - General 07/17/13 documented as of this encounter
--- OUTSIDE RECORDS SUMMARY | 2023-10-27 11:09 | XMS_ITS | Encounter Summary ---
Author Organization [facility] Address [address] [place] [address] Care Team Providers Care Tax Assessor Name Role Phone Lolly Oliveira MD Primary Care Provider [phone] Encounter Details Date Type Department Care Team (Late st Contact Info) Description 03/06/2003 Results Only [facility] [place] conversion [address] [place] [address] Lolly Oliveira MD [address] [place], [place] [phone] Social History Tobacco Use Types Packs/Day Years [...] [facility] Co de Phone Number [facility] [address] [place] [address] documented in this encounter Visit Diagnoses Not on filedocumented in this encounter Care Teams Tax Assessor Relationship Specialty Start Date End Date Lolly Oliveira MD [address] [place] [address] PCP - General 11/13/08 documented as of this encounter
--- OUTSIDE RECORDS SUMMARY | 2023-10-27 11:09 | XMS_ITS | Encounter Summary ---
Author Organization [facility] Address [facility] [place] [address] Care Team Providers Care Proof Clerk Name Role Phone Lolly Oliveira MD Primary Care Provider [phone] Encounter Details Date Type Department Care Team (Late st Contact Info) Description 11/11/2022 Orders Only Cardiology at [address] [phone] Lalit Mcmahon MD [facility] [place] [address] Nonischemic cardiomyopathy Social History Tobacco Use Types Packs/Day Years Used Date Smoking Tobacco: Never Alcohol Use Standard Drinks/Week Comments Not Currently 0 (1 standard drink = 0.6 oz pur e alcohol) [facility] Inpatient Questions Answer Date Recorded Does Anyone [...] st Contact Info) Description 01/16/2024 10:00 AM [facility] Hospital Encounter [place] [address] Arrived documented as of this encounter Visit Diagnoses Diagnosis Nonischemic cardiomyopathy Other primary cardiomyopathies documented in this encounter Care Teams Proof Clerk Relationship Specialty Start Date End Date Berrian, Lolly M, MD [address] [place] [address] PCP - General 07/17/13 documented as of this encounter
--- OUTSIDE RECORDS SUMMARY | 2023-10-27 11:09 | XMS_ITS | Encounter Summary ---
Author Organization [facility] [place] [address] Care Team Providers Care Data Librarian Name Role Phone Lolly Oliveira MD Primary Care Provider [phone] Encounter Details Date Type Department Care Team (Latest Contact Info) Description 07/20/2023 10:00 AM EDT - 07/20/2023 11:59 PM EDT Hospital Encounter Non-[place] [phone] Discharge Disposition: Home Social History Tobacco Use [...] with spacer fluticasone propionate (Flonase) 50 mcg/actuation [place], Suspension 1 spray by Each Nare route daily as needed. documented as of this encounter Plan of Treatment Upcoming Encounters Date Type Department Care Team (Late st Contact Info) Description 01/16/2024 10:00 AM [email or web address] Hospital Encounter Non-Invasive [place] [address] Arrived documented as of this encounter Procedures [...] on filedocumented in this encounter Care Teams Data Librarian Relationship Specialty Start Date End Date Lolly Oliveira MD [address] [place] [address] PCP - General 07/17/13 documented as of this encounter
--- OUTSIDE RECORDS SUMMARY | 2023-10-27 11:09 | XMS_ITS | Encounter Summary ---
Author Organization Formerly [facility] [place] [address] Care Team Providers Care Network Operations Technician Name Role Phone Lolly Oliveira MD Primary Care Provider [phone] Encounter Details Date Type Department Care Team (Late st Contact Info) Description 05/18/2023 Refill Dermatology at [address] [address] Nora Meredith LPN Social History [...] patient. She voiced understanding. Order sent to [facility]. documented in this encounter Plan of Treatment Upcoming Encounters Date Type Department Care Team (Late st Contact Info) Description 01/16/2024 10:00 AM EST Hospital Encounter Non-[place] [address] Arrived documented as of this encounter Visit Diagnoses Not on filedocumented in this encounter Care Teams Network Operations Technician Relationship Specialty Start Date End Date Lolly Oliveira MD [address] [place] [address] PCP - General 07/17/13 documented as of this encounter
--- OUTSIDE RECORDS SUMMARY | 2023-10-27 11:09 | XMS_ITS | Encounter Summary ---
Author Organization [facility] [place] [address] Care Team Providers Care Apigee Developer Name Role Phone Lolly Oliveira MD Primary Care Provider [phone] Reason for Visit * Reason Onset Date Comments Other 07/24/2022 Implanted Cardia c Device Teaching/Education Encounter Details Date Type Department Care Team (Late st Contact Info) Description 07/24/2022 Notes Only Cardiology at [address] [phone] Letha Arroyo Other (Implanted Cardiac Device Teaching/Education) Social History Tobacco Use Types Packs/Day Years Used Date Smoking Tobacco: Never Alcohol Use Standard Drinks/Week Comments Not Currently 0 (1 standard drink = 0.6 oz pur e alcohol) [facility] Inpatient Questions Answer Date Recorded Does Anyone [...] to call the Cardiac Device Clinic at [phone] with any questions. Plan: Post op check: [...] Contact Info) Description 01/16/2024 10:00 AM [facility] Hospital Encounter [place] [address] Arrived documented as of this encounter Visit Diagnoses Not on filedocumented in this encounter Care Teams Apigee Developer Relationship Specialty Start Date End Date Lolly Oliveira MD [address] [place] [address] PCP - General 07/17/13 documented as of this encounter
--- OUTSIDE RECORDS SUMMARY | 2023-10-27 11:09 | XMS_ITS | Encounter Summary ---
Author Organization [facility] Address [address] [place] [address] Care Team Providers Care Ophthalmic Dispenser Name Role Phone Lolly Oliveira MD Primary Care Provider [phone] Encounter Details Date Type Department Care Team (Late st Contact Info) Description 05/29/2002 Results Only [facility] - [place] conversion [address] [place] [address] Silvia Diehl, [address] [place] [phone] Social History Tobacco Use Types Packs/Day Years [...] ? JING MOTT ? Accession #: ? [id number] : ? 1950 (Age: 51) ??F ?Collect Date: ? 05/29/2002 Location: ? [facility] ? Receive Date: ? 05/31/2002 Provider: ?SILVIA DIEHL COMMERCIAL RELATIONSHIP MANAGER Copy to: ? Specimen/Source: ?ThinPrep Pap [...] Report [facility] 05/29/2002 05/31/2002 Silvia Diehl COMMERCIAL RELATIONSHIP MANAGER PATHOLOGY ORDERABLES [facility] [address] [place] [address] documented in this encounter Visit Diagnoses Not on filedocumented in this encounter Care Teams Ophthalmic Dispenser Relationship Specialty Start Date End Date Lolly Oliveira MD [address] [place] [address] PCP - General 11/13/08 documented as of this encounter
--- OUTSIDE RECORDS SUMMARY | 2023-10-27 11:09 | XMS_ITS | Encounter Summary ---
Author Organization [facility] Address [address] [place] [address] Care Team Providers Care Food Tray Assembler Name Role Phone Lolly Oliveira MD Primary Care Provider [phone] Encounter Details Date Type Department Care Team (Late st Contact Info) Description 02/11/2021 Lab Requisition [facility] Pathology & Laboratory Medicine - [address] [address] Outr Resulting Lab, Provider Social History Tobacco [...] Outr Resulting Lab MICROBIOLOGY - GENERAL ORDERABLES [facility] [address] [place] [address] * COVID-19 TESTING (02/11/2021 8:00 EST) COVID-19 rt-PCR Result Negative Negative 02/12/2021 14:17 EST [facility] Comment: This test [...] was performed using the med SARS-CoV-2 assay ([employer] on the Med 6800 System Performing Lab Med 6800 [facility] Lab 02/12/2021 14:17 EST [facility] Swab 02/11/2021 8:00 EST 02/11/2021 22:22 EST Provider Outr Resulting Lab MICROBIOLOGY - GENERAL ORDERABLES [facility] [address] [place] [address] documented in this encounter Visit Diagnoses Not on filedocumented in this encounter Care Teams Food Tray Assembler Relationship Specialty Start Date End Date Lolly Oliveira MD [address] [place] [address] PCP - General 11/13/08 documented as of this encounter
--- OUTSIDE RECORDS SUMMARY | 2023-10-27 11:09 | XMS_ITS | Encounter Summary ---
Author Organization [facility] [place] [address] Care Team Providers Care Personal Computer Network Analyst Name Role Phone Lolly Oliveira MD Primary Care Provider [phone] Encounter Details Date Type Department Care Team (Latest Contact Info) Description 04/21/2023 10:00 AM EST - 04/21/2023 11:59 PM EST Hospital Encounter [place] [address] Discharge Disposition: Home Social History Tobacco Use [...] with spacer fluticasone propionate (Flonase) 50 mcg/actuation [place], Suspension 1 spray by Each Nare route [...] AM EST Hospital Encounter Non-[place] [address] Arrived documented as of this [...] on filedocumented in this encounter Care Teams Personal Computer Network Analyst Relationship Specialty Start Date End Date Lolly Oliveira MD [address] [place] [address] PCP - General 07/17/13 documented as of this encounter
--- OUTSIDE RECORDS SUMMARY | 2023-10-27 11:09 | XMS_ITS | Encounter Summary ---
Author Organization [facility] [address] Care Team Providers Care Collateral Specialist Name Role Phone Lolly Oliveira MD Primary Care Provider [phone] Reason for Visit * Reason Comments Follow-up 8 weeks UVB treatmen t twice weekly Encounter Details Date Type Department Care Team (Late st Contact Info) Description 07/19/2023 11:00 AM EDT Office Visit Dermatology at [address] [phone] Clay Ramírez MD [address], ERIKA A DERMATOLOGY [place], [place] [phone] Psoriasis Social History Tobacco Use Types Packs/Day [...] [facility] Hospital Encounter [place] [address] Arrived documented as of this encounter Visit Diagnoses Diagnosis Psoriasis Other psoriasis documented in this encounter Care Teams Collateral Specialist Relationship Specialty Start Date End Date Lolly Oliveira MD [address] [place] [address] PCP - General 07/17/13 documented as of this encounter
--- OUTSIDE RECORDS SUMMARY | 2023-10-27 11:09 | XMS_ITS | Encounter Summary ---
Author Organization [facility] Address [address] [place] [address] Care Team Providers Care Nutritional Assistant Name Role Phone Lolly Oliveira MD Primary Care Provider [phone] Encounter Details Date Type Department Care Team (Late st Contact Info) Description 04/25/2009 Orders Only [facility] Laboratory Services - [facility] ([facility]) [address] [place], [place] [phone] Lolly Oliveira MD [address] [place], [place] [phone] Social History Tobacco Use Types Packs/Day Years [...] ? JING ALVARENGA ? Accession #: ? [id number] ? : ? 1950 (Age: 58) ??F [...] reviewed and electronically signed by: ? Helena Dazey, CT(ASCP) ? Report Date: ??04/29/2009 10:38 ? End of Report ? [facility] 04/25/2009 04/26/2009 Lolly Oliveira MD PATHOLOGY ORDERABLES [facility] [address] [place] [address] documented in this encounter Visit Diagnoses Not on filedocumented in this encounter Care Teams Nutritional Assistant Relationship Specialty Start Date End Date Lolly Oliveira MD [address] [place] [address] PCP - General 11/13/08 documented as of this encounter
--- OUTSIDE RECORDS SUMMARY | 2023-10-27 11:09 | XMS_ITS | Encounter Summary ---
Author Organization [facility] Address [address] [place] [address] Care Team Providers Care Chemistry Technical Officer Name Role Phone Lolly Oliveira MD Primary Care Provider [phone] Encounter Details Date Type Department Care Team (Late st Contact Info) Description 04/01/2005 Results Only [facility] - [place] conversion [address] [place] [address] Blair Dukes MD [address] [place] [id number] Social History Tobacco Use Types Packs/Day Years [...] ? JING ALVARENGA ? Accession #: ? [id number] ? : ? 1950 (Age: 54) ??F [...] (A). Received in [place]' s fixative labelled [place] and #2 ??transverse colon bx is a single 0.2 x 0.2 x 0.2 cm tissue, submitted intact as (B). ??(Dr. Lechuga)/[facility] End of Report [facility] 04/01/2005 04/02/2005 15: 24 EST Blair Dukes MD PATHOLOGY ORDERABLES [facility] [address] [place] [address] documented in this encounter Visit Diagnoses Not on filedocumented in this encounter Care Teams Chemistry Technical Officer Relationship Specialty Start Date End Date Lolly Oliveira MD [address] [place] [address] PCP - General 11/13/08 documented as of this encounter
--- OUTSIDE RECORDS SUMMARY | 2023-10-27 11:09 | XMS_ITS | Encounter Summary ---
Author Organization [facility] [place] [address] Care Team Providers Care Paid Internship Name Role Phone Lolly Oliveira MD Primary Care Provider [phone] Encounter Details Date Type Department Care Team (Latest Contact Info) Description 10/18/2023 10:00 AM EDT - 10/18/2023 11:59 PM EDT Hospital Encounter Non-[place] [address] Discharge Disposition: Home Social History Tobacco Use [...] with spacer fluticasone propionate (Flonase) 50 mcg/actuation [place], Suspension 1 spray by Each Nare route daily as needed. documented as of this encounter Plan of Treatment Upcoming Encounters Date Type Department Care Team (Late st Contact Info) Description 01/16/2024 10:00 AM EST Hospital Encounter Non-[place] [address] Arrived documented as of this encounter Procedures [...] on filedocumented in this encounter Care Teams Paid Internship Relationship Specialty Start Date End Date Lolly Oliveira MD [address] [place] [address] PCP - General 07/17/13 documented as of this encounter
--- OUTSIDE RECORDS SUMMARY | 2023-10-27 11:09 | XMS_ITS | Encounter Summary ---
Author Organization [facility] Address [place] [address] Care Team Providers Care Rag Room Supervisor Name Role Phone Lolly Oliveira MD Primary Care Provider [phone] Encounter Details Date Type Department Care Team (Late st Contact Info) Description 01/29/2023 Notes Only Cardiology at [address] [address] Merle Lin PA [facility] [place] [address] Social History Tobacco Use Types Packs/Day Years Used Date Smoking Tobacco: Never Alcohol Use Standard Drinks/Week Comments Not Currently 0 (1 standard drink = 0.6 oz pur e alcohol) [facility] Inpatient Questions Answer Date Recorded Does Anyone [...] pdf document Date of transmission: 01/29/2023 Device passenger service representative: BSI Device type: DAY CARE CENTER DIRECTOR-D Presenting rhythm: /RVP/LVP AP 21% Right CENTRAL OFFICE EQUIPMENT ENGINEER 100% Left CENTRAL OFFICE EQUIPMENT ENGINEER: 100% Battery: 10.5 years [employer] Index rising in setting of increasing S3 intensity, increasing respiratory rate, increasing night heart rate, and increasing mean heart rate. MICKEY Villa 01/29/2023 9:06 AM documented in this encounter Plan of Treatment Upcoming Encounters Date Type Department Care Team (Late st Contact Info) Description 01/16/2024 10:00 AM EST Hospital Encounter Non[place] [address] Arrived documented as of this encounter Visit Diagnoses Not on filedocumented in this encounter Care Teams Rag Room Supervisor Relationship Specialty Start Date End Date Lolly Oliveira MD [address] [place] [address] PCP - General 07/17/13 documented as of this encounter
--- OUTSIDE RECORDS SUMMARY | 2023-10-27 11:09 | XMS_ITS | Encounter Summary ---
Author Organization [facility] Address [address] [place] [address] Care Team Providers Care General Agent Name Role Phone Lolly Oliveira MD Primary Care Provider [phone] Encounter Details Date Type Department Care Team (Late st Contact Info) Description 04/12/2007 Results Only [facility] [place] [facility] [address] [place] [address] Lolly Oliveira MD [address] [place], [place] [phone] Social History Tobacco Use Types Packs/Day Years [...] ? JING ALVARENGA ? Accession #: ? [id number] : ? 1950 (Age: 56) ??F ?Collect Date: ? 04/12/2007 Location: ? [facility] ? Receive Date: ? 04/13/2007 Provider: ?LOLLY OLIVEIRA MD Copy to: ? Specimen/Source: ?ThinPrep Pap Test, Cervix/Endocervix, processed on [employer] ThinPrep Imaging System, with manual evaluation Last [...] Oliveira MD PATHOLOGY ORDERABLES [facility] [address] [place] [address] documented in this encounter Visit Diagnoses Not on filedocumented in this encounter Care Teams General Agent Relationship Specialty Start Date End Date Lolly Oliveira MD [address] [place] [address] PCP - General 11/13/08 documented as of this encounter
--- OUTSIDE RECORDS SUMMARY | 2023-10-27 11:09 | XMS_ITS | Encounter Summary ---
Author Organization [facility] [place] [address] Care Team Providers Care Mrp Controller Name Role Phone Lolly Oliveira MD Primary Care Provider Reason for Visit * Reason Onset Date Comments Post Procedure Call 07/30/2022 Encounter Details Date Type Department Care Team (Late st Contact Info) Description 07/30/2022 Notes Only Cardiology at [address] [phone] Rosenda Sutton, RN Post Procedure Call Social History Tobacco Use Types Packs/Day Years Used Date Smoking Tobacco: Never Alcohol Use Standard Drinks/Week Comments Not Currently 0 (1 standard drink = 0.6 oz pur e alcohol) [facility]END[facility] Inpatient Questions Answer Date Recorded Does [...] 07/30/2022 9:59 AM EDTSummary: Post Procedure Call: BANQUET LINE COOK implant EP RN Post-Procedure Note: Date of [...] Note: Follow-up Recommendations for Providers: - s/p BANQUET LINE COOK-D implant - post implant QRS 130 ms - reviewed post-implant instructions - no medication changes - Follow up in device clinic for wound/device check in ~10 days??([facility]) Wound Care: -Wound will heal in [...] MEDICAL CENTER Hospital Encounter Non[place] [address] Arrived documented as of this encounter Visit Diagnoses Not on filedocumented in this encounter Care Teams Mrp Controller Relationship Specialty Start Date End Date Lolly Oliveira MD [address] [place] [address] PCP - General 07/17/13 documented as of this encounter
--- OUTSIDE RECORDS SUMMARY | 2023-10-27 11:09 | XMS_ITS | Encounter Summary ---
Author Organization [facility] Address [address] [place] [address] Care Team Providers Care Campus Security Officer Name Role Phone Lolly Oliveira MD Primary Care Provider [phone] Encounter Details Date Type Department Care Team (Late st Contact Info) Description 02/20/2020 Lab Requisition [facility] Pathology & Laboratory Medicine - [address] [phone] Outr Resulting Lab, Provider Social History Tobacco [...] in accordance with CLIA regulations, College [employer] (CAP) guidelines (May 25, 2019), and FDA guidance (May 06, 2019). This test is only for use under the Food and Drug Administration's Emergency Use Authorization. Swab ENTIRE NASOPHARYNX / Unknown 02/19/2020 16:30 EST 02/20/2020 16:09 EST Provider Outr Resulting Lab MICROBIOLOGY - GENERAL ORDERABLES [facility] [place], [place] * COVID-19 TESTING (02/19/2020 16:30 EST) COVID-19 rt-PCR Result NEGATIVE Negative 02/22/2020 23:41 EST [facility] Comment: 2019-novel Coronavirus (2019-nCoV) not [...] in accordance with CLIA regulations, College of [employer] Pathologists (CAP) guidelines (May 25, 2019), and FDA guidance (May 06, 2019). This test is only for use under the Food and Drug Administration's Emergency Use Authorization. Performing Lab [facility] 02/22/2020 23:41 EST [facility] Swab 02/19/2020 16:3 0 EST 02/20/2020 16:09 EST Provider Outr Resulting Lab MICROBIOLOGY - GENERAL ORDERABLES [facility] [address] [place] [address] [facility] [place], [place] documented in this encounter Visit Diagnoses Not on filedocumented in this encounter Care Teams Campus Security Officer Relationship Specialty Start Date End Date Lolly Oliveira MD [address] [place] [address] PCP - General 11/13/08 documented as of this encounter
--- OUTSIDE RECORDS SUMMARY | 2023-10-27 11:09 | XMS_ITS | Encounter Summary ---
Author Organization [facility] Address [address] [place] [address] Care Team Providers Care Clinical Informatics Physician Name Role Phone Lolly Oliveira MD Primary Care Provider [phone] Encounter Details Date Type Department Care Team (Late st Contact Info) Description 11/13/2020 Lab Requisition [facility] Pathology & Laboratory Medicine - [address] [phone] Outr Resulting Lab, Provider Social History Tobacco [...] Outr Resulting Lab MICROBIOLOGY - GENERAL ORDERABLES [facility] [address] [place] [address] * COVID-19 TESTING (11/13/2020 7:30 EDT) COVID-19 rt-PCR Result Negative Negative 11/14/2020 11:46 EDT [facility] Comment: This test has [...] epidemiological information. Testing was performed using the mde SARS-CoV-2 assay ([employer] on the Med 6800 System Performing Lab Med 6800 [facility] 11/14/2020 11:46 EDT [facility] Swab 11/13/2020 7:30 EDT 11/13/2020 20:57 EDT Provider Outr Resulting Lab MICROBIOLOGY - GENERAL ORDERABLES [facility] [address] [place] [address] documented in this encounter Visit Diagnoses Not on filedocumented in this encounter Care Teams Clinical Informatics Physician Relationship Specialty Start Date End Date Lolly Oliveira MD [address] [place] [address] PCP - General 11/13/08 documented as of this encounter
--- OUTSIDE RECORDS SUMMARY | 2023-10-27 11:09 | XMS_ITS | Encounter Summary ---
Author Organization [facility] [place] [address] Care Team Providers Care Dining Server Name Role Phone Lolly Oliveira MD Primary Care Provider [phone] Encounter Details Date Type Department Care Team (Late st Contact Info) Description 11/16/2022 Telephone Cardiology at [address] [phone] Luna Rousseau, RN Social History Tobacco Use Types Packs/Day Years Used Date Smoking Tobacco: Never Alcohol Use Standard Drinks/Week Comments Not Currently 0 (1 standard drink = 0.6 oz pur e alcohol) [facility] Inpatient Questions Answer Date Recorded [...] BP today was 118/[address] [facility]. Pt is going twice a week [...] [facility] Hospital Encounter [place] [address] Arrived documented as of this encounter Visit Diagnoses Not on filedocumented in this encounter Care Teams Dining Server Relationship Specialty Start Date End Date Lolly Oliveira MD [address] [place] [address] PCP - General 07/17/13 documented as of this encounter
--- OUTSIDE RECORDS SUMMARY | 2023-10-27 11:09 | XMS_ITS | Encounter Summary ---
Author Organization [place] [address] Care Team Providers Care Stock Replenisher Name Role Phone Lolly Oliveira MD Primary Care Provider [phone] Encounter Details Date Type Department Care Team (Latest Contact Info) Description 10/23/2022 10:00 AM EDT - 10/23/2022 11:59 PM EDT Hospital Encounter Non-[place] [address] Discharge Disposition: Home Social History Tobacco Use [...] with spacer fluticasone propionate (Flonase) 50 mcg/actuation [place], Suspension 1 spray by Each Nare route [...] Contact Info) Description 01/16/2024 10:00 AM [facility] Hospital Encounter Non-[place] [address] Arrived documented as of [...] on filedocumented in this encounter Care Teams Stock Replenisher Relationship Specialty Start Date End Date Lolly Oliveira MD [address] [place] [address] PCP - General 07/17/13 documented as of this encounter
--- OUTSIDE RECORDS SUMMARY | 2023-10-27 11:09 | XMS_ITS | Clinical Summary ---
Author Organization [facility] [place] [address] Care Team Providers Care Nursing Manager Name Role Phone Lolly Oliveira MD Primary Care Provider [phone] Allergies Active Allergy Reactions Criticality Noted Date [...] spacer Active fluticasone propionate (Flonase) 50 mcg/actuation [place], Suspension 1 spray by Each Nare route [...] PM EDT Hospital Encounter [place] [address] Discharge Disposition: Home from Last 3 Months [...] AM EST Hospital Encounter [place] [address] Arrived Health Maintenance Due Date Last Done [...] - PCV) 2013 Covid-19 Vaccine (1 - 2022- season) 2022 Influenza (Flu) vaccine (1 o f 1 - Influenza standard series) 11/07/2023 Medical Devices Implanted Type Area Supervisor Edging Device Identifier Shelf Expiration Date Model / Serial / Lot Bsx: [id number]: [id number]/18/2 023 Implanted: by Lalit Mcmahon MD (Quantity not on file) Defibrillator Chest Wall [employer] [id number] / [id number] / Bsx: [id number]: 960979-0/18/2 023 Implanted: by Lalit Mcmahon MD (Quantity not on file) Lead Heart [employer] 4674 / [id number] / Bsx: [id number]: [id number] Implanted: by Lalit Mcmahon MD (Quantity not on file) Lead Heart [employer] 7841 / [id number] / Bsx: 0672: 759618-4/18/2 023 Implanted: by Lalit Mcmahon MD (Quantity not on file) Lead Heart [employer] 0672 / [id number] / Procedures Procedure Name Priority Date/Time Associated [...] Status decision made by: Patient Care Teams Nursing Manager Relationship Specialty Start Date End Date Lolly Oliveira MD [address] [place] [address] PCP - General 07/17/13
--- OUTSIDE RECORDS SUMMARY | 2023-10-27 11:09 | XMS_ITS | Encounter Summary ---
Author Organization [facility] [place] [address] Care Team Providers Care Outreach And Education Social Worker Name Role Phone Lolly Oliveira MD Primary Care Provider [phone] Encounter Details Date Type Department Care Team (Latest Contact Info) Description 01/21/2023 10:00 AM EST - 01/21/2023 11:59 PM EST Hospital Encounter [place] [phone] Discharge Disposition: Home Social History Tobacco Use [...] with spacer fluticasone propionate (Flonase) 50 mcg/actuation [place], Suspension 1 spray by Each Nare route [...] AM EST Hospital Encounter Non-[place] [address] Arrived documented as of this [...] on filedocumented in this encounter Care Teams Outreach And Education Social Worker Relationship Specialty Start Date End Date Lolly Oliveira MD [address] [place] [address] PCP - General 07/17/13 documented as of this encounter
--- OUTSIDE RECORDS SUMMARY | 2023-10-27 11:09 | XMS_ITS | Encounter Summary ---
Author Organization [facility] Address [address] [place] [address] Care Team Providers Care Business Applications Manager Name Role Phone Lolly Oliveira MD Primary Care Provider [phone] Encounter Details Date Type Department Care Team (Late st Contact Info) Description 05/02/2004 Results Only [facility] [address] [place] [address] Lolly Oliveira MD [address] [place], [place] [phone] Social History Tobacco Use Types Packs/Day Years [...] [facility]. [facility] Report Status Final [id number] [facility] 05/02/2004 9:32 EST 05/10/2004 9:32 EST Lolly Oliveira MD MICROBIOLOGY - GENER AL ORDERABLES [facility] [address] [place] [address] * CYTOPATHOLOGY (05/02/2004 0:00 EST) Pathology Report: CYTOPATHOLOGY REPORT Reports generated via electronic interface contain original data; however they are lacking the format of the original report. Caution should be taken when reading/interpreti ng unformatted reports. Name: ? JING ALVARENGA ? Accession #: ? [id number] : ? 1950 (Age: 53) ??F ?Collect [...] Oliveira MD PATHOLOGY ORDERABLES Performing Organization Address City/State/[facility] Co de Phone Number [facility] [address] [place] [address] documented in this encounter Visit Diagnoses Not on filedocumented in this encounter Care Teams Business Applications Manager Relationship Specialty Start Date End Date Lolly Oliveira MD [address] [place] [address] PCP - General 11/13/08 documented as of this encounter
--- OUTSIDE RECORDS SUMMARY | 2023-10-27 11:09 | XMS_ITS | Encounter Summary ---
Author Organization [facility] Address [facility] [place] [address] Care Team Providers Care Bordereau Clerk Name Role Phone Lolly Oliveira MD Primary Care Provider [phone] Encounter Details Date Type Department Care Team (Late st Contact Info) Description 05/03/2023 Telephone Cardiology at [address] [phone] Lalit Mcmahon MD [facility] [place] [address] Social History Tobacco Use Types Packs/Day Years [...] AM EST Hospital Encounter Non-[place] [address] Arrived documented as of this encounter Visit Diagnoses Not on filedocumented in this encounter Care Teams Bordereau Clerk Relationship Specialty Start Date End Date Lolly Oliveira MD [address] [place] [address] PCP - General 07/17/13 documented as of this encounter
--- OUTSIDE RECORDS SUMMARY | 2023-10-27 11:09 | XMS_ITS | Encounter Summary ---
Author Organization [facility] [place] [address] Care Team Providers Care Torque Tester Name Role Phone Lolly Oliveira MD Primary Care Provider [phone] Encounter Details Date Type Department Care Team [...] AM EST Hospital Encounter Non[place] [address] Arrived documented as of this encounter Visit Diagnoses Not on filedocumented in this encounter Care Teams Torque Tester Relationship Specialty Start Date End Date Lolly Oliveira MD [address] [place] [address] PCP - General 07/17/13 documented as of this encounter
--- OUTSIDE RECORDS SUMMARY | 2023-10-27 11:09 | XMS_ITS | Encounter Summary ---
Author Organization [facility] Address [address] [place] [address] Care Team Providers Care Cross Country And Track And Field Coach Name Role Phone Unavailable Primary Care Provider Unavailabl e Encounter Details Date Type Department Care Team (Late st Contact Info) Description 11/07/[address] [facility] ([facility]) [address] [place] [address] Kenneth Parker MD [address] [place] [address] Social History Tobacco Use Types Packs/Day Years [...] ? LYLE, JING ? Accession #: ? [id number] ? : ? 1950 (Age: 58) ??F [...] Parker MD PATHOLOGY ORDERABLES Performing Organization Address City/State/[facility] Co de Phone Number [facility] [address] [place] [address] documented in this encounter Visit Diagnoses Not on filedocumented in this encounter
--- OUTSIDE RECORDS SUMMARY | 2023-10-27 11:09 | XMS_ITS | Encounter Summary ---
Author Organization [facility] Address [address] [place] [address] Care Team Providers Care Strainer Tender Name Role Phone Lolly Oliveira MD Primary Care Provider [phone] Encounter Details Date Type Department Care Team (Late st Contact Info) Description 03/21/2019 Lab Requisition [facility] Pathology & Laboratory Medicine - [address] [address] Unknown, Provider, Social History Tobacco Use Types [...] 211 - 911 pg/mL 03/22/2019 11:52 EST [facility] Blood VENOUS BLOOD / Unknown 03/16/2019 9:25 EST 03/21/2019 21:35 EST Provider Unknown CHEMISTRY & BLOOD GA S ORDERABLES [facility] [address] [place] [address] documented in this encounter Visit Diagnoses Not on filedocumented in this encounter Care Teams Strainer Tender Relationship Specialty Start Date End Date Lolly Oliveira MD [address] [place] [address] PCP - General 11/13/08 documented as of this encounter
--- OUTSIDE RECORDS SUMMARY | 2023-10-27 11:09 | XMS_ITS | Encounter Summary ---
Author Organization [facility] Address [address] [place] [address] Care Team Providers Care Early Head Start Teacher Name Role Phone Lolly Oliveira MD Primary Care Provider [phone] Encounter Details Date Type Department Care Team (Late st Contact Info) Description 04/17/2005 Results Only [facility] conversion [address] [place] [address] Lolly Oliveira MD [address] [place], [place] [id number] Social History Tobacco Use Types Packs/Day Years [...] ? JING ALVARENGA ? Accession #: ? [id number] : ? 1950 (Age: 54) ??F ?Collect Date: ? 04/17/2005 Location: ? [facility] ? Receive Date: ? 04/21/2005 Provider: ?LOLLY OLIVEIRA MD Copy to: ? Specimen/Source: ?ThinPrep Pap Test, Cervix/Endocervix, processed on Collaborate.comPrep Imaging System, with manual evaluation Last Menstrual [...] Oliveira MD PATHOLOGY ORDERABLES [facility] [address] [place] [address] documented in this encounter Visit Diagnoses Not on filedocumented in this encounter Care Teams Early Head Start Teacher Relationship Specialty Start Date End Date Lolly Oliveira MD [address] [place] [address] PCP - General 11/13/08 documented as of this encounter
--- OUTSIDE RECORDS SUMMARY | 2023-10-27 11:09 | XMS_ITS | Encounter Summary ---
Author Organization [facility] [place] [address] Care Team Providers Care Radio Division Officer Name Role Phone Lolly Oliveira MD Primary Care Provider [phone] Encounter Details Date Type Department Care Team (Late st Contact Info) Description 03/15/2023 Telephone Cardiology at [address] [phone] Saranya Ma Social History Tobacco Use Types [...] her to have an echo done at [facility] prior to her appt withalm there on 05/12/23. Message sent to Dr. Mcmahon asking him to put order in if he would like her to have this done. Saranya Ma Sr. Clinical Procedure [place]/Electronic Calibration Technician documented in this encounter Plan of Treatment Upcoming Encounters Date Type Department Care Team (Late st Contact Info) Description 01/16/2024 10:00 AM EST Hospital Encounter Non-Invasive [place] [address] Arrived documented as of this encounter Visit Diagnoses Not on filedocumented in this encounter Care Teams Radio Division Officer Relationship Specialty Start Date End Date Lolly Oliveira MD [address] [place] [address] PCP - General 07/17/13 documented as of this encounter
--- OUTSIDE RECORDS SUMMARY | 2023-10-27 11:09 | XMS_ITS | Encounter Summary ---
Author Organization [facility] [place] [address] Care Team Providers Care Dialysis Nurse Name Role Phone Lolly Oliveira MD Primary Care Provider [phone] Encounter Details Date Type Department Care Team (Late st Contact Info) Description 03/17/2023 Telephone Cardiology at [address] [phone] Saranya Ma Social History Tobacco Use Types Packs/Day Years Used Date Smoking Tobacco: Never Alcohol Use Standard Drinks/Week Comments Not Currently 0 (1 standard drink = 0.6 oz pur e alcohol) [facility] Inpatient Questions Answer Date Recorded Does [...] encounter Miscellaneous Notes * Telephone Encounter - Saranay Ma - 03/17/2023 9:43 AM EST Echo order faxed to [facility] at [phone]. No Prior auth needed. Ref #:[id number]. Saranya Ma Sr. Clinical Procedure [place]/Tool Room Machinist documented in this encounter Plan of Treatment Upcoming Encounters Date Type Department Care Team (Late st Contact Info) Description 01/16/2024 10:00 AM [facility] Hospital Encounter Non-[place] [address] Arrived documented as of this encounter Visit Diagnoses Not on filedocumented in this encounter Care Teams Dialysis Nurse Relationship Specialty Start Date End Date Lolly Oliveira MD [address] [place] [address] PCP - General 07/17/13 documented as of this encounter
--- OUTSIDE RECORDS SUMMARY | 2023-10-27 11:09 | XMS_ITS | Referral Summary ---
Author Organization [facility] Address [address] [place] [address] Care Team Providers Care Raiser Helper Name Role Phone Lolly Oliveira MD Primary Care Provider [phone] Social History Tobacco Use Types Packs/Day Years Used Date Smoking Tobacco: Never Assessed Sex and Gender Information Value Date Recorded Sex Assigned at Not on file Gender Identity Not on file Sexual Orientation Not on file Plan of Treatment Not on file Care Teams Raiser Helper Relationship Specialty Start Date End Date Lolly Oliveira MD [address] [place] [address] PCP - General 11/13/08
--- OUTSIDE RECORDS SUMMARY | 2023-10-27 11:09 | XMS_ITS | Encounter Summary ---
Author Organization [facility] [place] [address] Care Team Providers Care Wastewater Analyst Lab Analyst Name Role Phone Lolly Oliveira MD Primary Care Provider [phone] Encounter Details Date Type Department Care Team (Late st Contact Info) Description 05/18/2023 Telephone Dermatology at [address] [address] Nora Meredith LPN Social History [...] [place] [facility] Encounter [place] [address] Arrived documented as of this encounter Visit Diagnoses Not on filedocumented in this encounter Care Teams Wastewater Analyst Lab Analyst Relationship Specialty Start Date End Date Lolly Oliveira MD [address] [place] [address] PCP - General 07/17/13 documented as of this encounter
--- OUTSIDE RECORDS SUMMARY | 2023-10-27 11:09 | XMS_ITS | Encounter Summary ---
Author Organization [facility] Address [address] [place] [address] Care Team Providers Care Water Inspector Name Role Phone Lolly Oliveira MD Primary Care Provider Encounter Details Date Type Department Care Team (Late st Contact Info) Description 05/27/2021 Lab Requisition [facility] Pathology & Laboratory Medicine - [address] [address] Iman Moran, DO [address] [facility] [address] [place], [place] [id number] Encounter for other general examination Social History [...] management options, if applicable. 05/30/2021 13:31 EDT [facility] Final Diagnosis A. COLON, POLYP AT 90 CM, BIOPSY/POLYPECTOM Y: - Tubular adenoma. 05/30/2021 13:31 [facility] Attestation By the signature below, the attending physician certifies that they have 1) personally conducted a gross and/or microscopic examination of the described specimen(s), and/or personally interpreted the results of laboratory testing of the described specimen(s), and 2) personally rendered or confirmed the above diagnosis. 05/30/2021 13:31 [facility] at 1331 Clinical History Severe diverticula and polypectomy x1 05/30/2021 13:31 [facility] Gross Description A. Received in formalin labelled with proper patient identification (initials J, K) and colon polyp x1 at 90 cm is a light pineda polypoid tissue measuring 0.2 x 0.2 x 0.2 cm. Submitted intact in A1. MICKEY CAROLS(ASCP) 05/27/2021 19:11 05/30/2021 13:31 [facility] Performing Lab [facility] 05/30/2021 13:31 [facility] Scanned Images 05/30/2021 13:31 [facility] Tissue ENTIRE COLON / Unknown 05/27/2021 11:23 EDT 05/27/2021 16:33 EDT Iman Moran DO PATHOLOGY ORDERABLES [facility] [address] [place] [address] documented in this encounter Visit Diagnoses Diagnosis Encounter for other general examination documented in this encounter Care Teams Water Inspector Relationship Specialty Start Date End Date Lolly Oliveira MD [address] [place] [address] PCP - General 11/13/08 documented as of this encounter
--- OUTSIDE RECORDS SUMMARY | 2023-10-27 11:09 | XMS_ITS | Encounter Summary ---
Author Organization [facility] Address [address] [place] [address] Care Team Providers Care Spent Grain Dryer Name Role Phone Lolly Oliveira MD Primary Care Provider [phone] Encounter Details Date Type Department Care Team (Late st Contact Info) Description 06/16/2012 Results Only [facility] Laboratory Services - [facility] ([facility] [address] [place], [place] [id number] Lolly Oliveira MD [address] [place], [place] [id number] Social History Tobacco Use Types Packs/Day Years [...] ? JING ALVARENGA ? Accession #: ? [id number] : ? 1950 (Age: 61) ??F ?Collect [...] MD PATHOLOGY ORDERABLES [facility] [address] [place] [address] documented in this encounter Visit Diagnoses Not on filedocumented in this encounter Care Teams Spent Grain Dryer Relationship Specialty Start Date End Date Lolly Oliveira MD [address] [place] [address] PCP - General 11/13/08 documented as of this encounter
--- OUTSIDE RECORDS SUMMARY | 2023-10-27 11:09 | XMS_ITS | Clinical Summary ---
Author Organization [facility] Address [address] [place] [address] Care Team Providers Care Professional Athletes Coach Name Role Phone Lolly Oliveira MD Primary Care Provider [phone] Social History Tobacco Use Types Packs/Day Years [...] COVID-19 Vaccine ( season) 2022 Care Teams Professional Athletes Coach Relationship Specialty Start Date End Date Lolly Oliveira MD [address] [place], [place] [address] PCP - General 11/13/08
--- OUTSIDE RECORDS SUMMARY | 2023-10-27 11:09 | XMS_ITS | Encounter Summary ---
Author Organization [facility] Address [facility] [place] [address] Care Team Providers Care Refund Clerk Name Role Phone Lolly Oliveira MD Primary Care Provider [phone] Reason for Referral * Diagnostic Test (Routine) - Closed Specialty Diagnoses / Procedures Referred By Contkoki t Referred To Contact Cardiology Diagnoses Nonischemic cardiomyopathy Biventricular ICD (implantable cardioverter-defibrillator) in place Procedures Echocardiogram Transthoracic Lalit Mcmahon MD [facility] [address] [place] [id number] Referral ID Status Reason Start Date Expiration Date V isits Requested Visits Authorized [id number] Closed Specialty Service Requested 03/15/2023 09/11/2023 1 1 Encounter Details Date Type Department Care Team (Late st Contact Info) Description 03/15/2023 Orders Only Cardiology at [address] [address] Lalit Mcmahon MD [facility] [place] [address] Nonischemic cardiomyopathy; Biventricular ICD (implantable cardioverter-defibrill ator) in place Social History Tobacco Use Types Packs/Day Years Used Date Smoking Tobacco: Never Alcohol Use Standard Drinks/Week Comments Not Currently 0 (1 standard drink = 0.6 oz pur e alcohol) [facility] Inpatient Questions Answer Date [...] AM EST Hospital Encounter Non-Invasive [place] [address] Arrived Scheduled Orders Name Type Priority Associated Diagnoses Order Schedule Echocardiogram Transthoracic Echocardiography Routine Nonischemic cardiomyopathy Biventricular ICD (implantable cardioverter-defibr illator) in place Expected: 05/05/2023, Expires: 11/04/2023 documented as of this encounter Visit Diagnoses Diagnosis Nonischemic cardiomyopathy Other primary cardiomyopathies Biventricular ICD (implantable cardioverter-defibrillator) in place documented in this encounter Care Teams Refund Clerk Relationship Specialty Start Date End Date Lolly Oliveira MD [address] [place] [address] PCP - General 07/17/13 documented as of this encounter
--- OUTSIDE RECORDS SUMMARY | 2023-10-27 11:10 | XMS_ITS | Encounter Summary ---
[place] [address] Care Team Providers Care Sample Room Supervisor Name Role Phone Lolly Oliveiar MD Primary [...] AM EST Hospital Encounter Non-Invasive [place] [address] Arrived documented as of this encounter Visit Diagnoses Not on filedocumented in this encounter Care Teams Sample Room Supervisor Relationship Specialty Start Date End Date Lolly Oliveira MD [address] [place] [address] PCP - General 07/17/13 documented as of this encounter
--- OUTSIDE RECORDS SUMMARY | 2023-10-27 11:10 | XMS_ITS | Encounter Summary ---
Author Organization [facility] [place] [address] Care Team Providers Care Set Up Technician Name Role Phone Lolly Oliveira MD Primary Care Provider [phone] Encounter Details Date Type Department Care Team (Late st Contact Info) Description 06/29/2011 [place] [phone] [facility] DIAGNOST[place] [address] Social History Tobacco Use Types Packs/Day Years [...] Encounter Non-Invasive [place] [address] Arrived documented as of this encounter Procedures [...] is a Non-reportable exam Eleno Christian MD [facility] FILM LIBRARY ORD ERABLES documented in this encounter Visit Diagnoses Not on filedocumented in this encounter Care Teams Set Up Technician Relationship Specialty Start Date End Date Lolly Oliveira MD [address] [place] [address] PCP - General 07/17/13 documented as of this encounter
--- OUTSIDE RECORDS SUMMARY | 2023-10-27 11:10 | XMS_ITS | Encounter Summary ---
Author Organization [facility] Address [facility] [place] [address] Care Team Providers Care Exhibits Curator Name Role Phone Lolly Oliveira MD Primary Care Provider [phone] Encounter Details Date Type Department Care Team (Late st Contact Info) Description 07/16/2022 Telephone Cardiology at [address] [phone] Lalit Mcmahon MD [facility] [place] [address] Social History Tobacco Use Types Packs/Day Years [...] her nonischemic cardiomyopathy. She is scheduled for CROSSBAR FRAME WIRER-D implantation next week and looks forward to the procedure. We will see each other next week. Lalit Mcmahon MD [facility] Cardiac Electrophysiology 07/16/2022 8:52 AM documented in this encounter Plan of Treatment Upcoming Encounters Date Type Department Care Team (Late st Contact Info) Description 01/16/2024 10:00 AM EST Hospital Encounter Non-[place]vasive [place] [address] Arrived documented as of this encounter Visit Diagnoses Not on filedocumented in this encounter Care Teams Exhibits Curator Relationship Specialty Start Date End Date Lolly Oliveira MD [address] [place] [address] PCP - General 07/17/13 documented as of this encounter
--- OUTSIDE RECORDS SUMMARY | 2023-10-27 11:10 | XMS_ITS | Encounter Summary ---
Author Organization [facility] [place] [address] Care Team Providers Care Integrity Analyst Name Role Phone Lolly Oliveira MD Primary Care Provider [phone] Encounter Details Date Type Department Care Team (Latest Contact Info) Description 07/26/2013 9:44 AM EDT - 07/26/2013 11:59 PM EDT Hospital En[place] [phone] CLINIC, Lolly So MD [address] [place], [place] [id number] Mammographic microcalcification Discharge Disposition: Home Social History [...] AM EST Hospital Encounter Non-Invasive [place] [phone] Arrived documented as of this encounter Procedures [...] are present on specimen digital X-ray. A iubenda-Stereo 13 Cylinder marker clip was placed. Cranio-caudal [...] mLs documented in this encounter Care Teams Integrity Analyst Relationship Specialty Start Date End Date Lolly Oliveira MD [address] [place] [address] PCP - General 07/17/13 documented as of this encounter
--- OUTSIDE RECORDS SUMMARY | 2023-10-27 11:10 | XMS_ITS | Encounter Summary ---
Author Organization [facility] [place] [address] Care Team Providers Care Design Engineering Technician Name Role Phone Lolly Oliveira MD Primary Care Provider [phone] Reason for Referral * Consultation (Routine) - Closed Specialty Diagnoses / Procedures Referred By Contact Referred To Contact Electrophysiology / Cardiology Diagnoses Left bundle branch block Cardiomyopathy, unspecified type AT MINIMUM PT NEEDS CONSIDERATION FOR DEFIBRILLATOR, ALSO CANDIDATE FOR RESYNCHRONIZATION THERAPY HER QRS IS >0.16 Lolly Oliveira MD [address] [place] [address] [facility] [address] [place] [phone] Referral ID Status Reason Start Date Expiration Date V isits Requested Visits Authorized [id number] Closed Consult, Test & Treat PCP Updated and/or Approved 04/30/2022 04/30/2023 6 6 Encounter Details Date Type Department Care Team (Latest Contact Info) Description 04/30/2022 Transcribe Orders eDH Incoming Referrals [phone] Lolly Oliveira MD [address] [place], [place] [id number] Left bundle branch block; Cardiomyopathy, unspecified type [...] AM EST Hospital Encounter Non-Invasive [place] [address] Arrived Scheduled Referrals Name Type Priority Associated Diagnoses Orde r Schedule Referral to Cardiology Outpatient Referral Routine Left bundle branch block Cardiomyopathy, Unspecified Type Ordered: 04/30/2022 documented as of this encounter Visit Diagnoses Diagnosis Left bundle branch block Other left bundle branch block Cardiomyopathy, unspecified type documented in this encounter Care Teams Design Engineering Technician Relationship Specialty Start Date End Date Lolly Oliveira MD [address] [place] [address] PCP - General 07/17/13 documented as of this encounter
--- OUTSIDE RECORDS SUMMARY | 2023-10-27 11:10 | XMS_ITS | Encounter Summary ---
Author Organization [facility] [place] [address] Care Team Providers Care Pediatric Urologist Name Role Phone Lolly Oliveira MD Primary Care Provider [phone] Reason for Visit * Reason Comments Follow-up Encounter Details Date Type Department Care Team (Late st Contact Info) Description 07/02/2022 8:00 AM EDT Office Visit Dermatology at [address] [phone] Clay Ramírez MD [address] [facility] [place] [address] Psoriasis, guttate Social History Tobacco Use Types [...] st Contact Info) Description 01/16/2024 10:00 AM [facility] Hospital Encounter Non-[place]vasive [place] [phone] Arrived documented as of this encounter Visit Diagnoses Diagnosis Psoriasis, guttate Other psoriasis documented in this encounter Care Teams Pediatric Urologist Relationship Specialty Start Date End Date Lolly Oliveira MD [address] [place] [address] PCP - General 07/17/13 documented as of this encounter
--- OUTSIDE RECORDS SUMMARY | 2023-10-27 11:10 | XMS_ITS | Encounter Summary ---
Author Organization [facility] [place] [address] Care Team Providers Care Oil Operator Name Role Phone Lolly Oliveira MD Primary Care Provider [phone] Encounter Details Date Type Department Care Team (Latest Contact Info) Description 07/18/2013 [place] [phone] Alia Fraire MD [facility] [place] [address] Mammographic microcalcification (Primary Dx) Social History Tobacco [...] AM EST Hospital Encounter [place] [phone] Arrived documented as of this encounter Results [...] are present on specimen digital X-ray. A [employer] Eviva-Stereo 13 Cylinder marker clip was placed. [...] calcifications are present on specimendigital X-ray. A [employer] Eviva-Stereo 13 Cylinder marker clip was placed. [...] does not layer and, therefore, are not clearance representative of milk of calcium. Again, these [...] does not layer and, therefore, are not clearance representative of milk of calcium. Again, these have an amorphous andpunctate appearance and remain indeterminate. Stereotactic guided biopsy isrecommended. Alia Fraire MD IMG MAMMO ORDERABLES documented in this encounter Visit Diagnoses Diagnosis Mammographic microcalcification- Primary Mammographic microcalcification Mammographic microcalcification Mammographic microcalcification Mammographic microcalcification documented in this encounter Care Teams Oil Operator Relationship Specialty Start Date End Date Lolly Oliveira MD [address] [place] [address] PCP - General 07/17/13 documented as of this encounter
--- OUTSIDE RECORDS SUMMARY | 2023-10-27 11:10 | XMS_ITS | Encounter Summary ---
[place] [address] Care Team Providers Care Puller Machine Name Role Phone Lolly Oliveira MD Primary Care Provider [phone] Encounter Details Date Type Department Care Team [...] AM EST Hospital Encounter Non-[place] [address] Arrived documented as of this encounter Visit Diagnoses Not on filedocumented in this encounter Care Teams Puller Machine Relationship Specialty Start Date End Date Lolly Oliveira MD [address] [place] [address] PCP - General 07/17/13 documented as of this encounter
--- OUTSIDE RECORDS SUMMARY | 2023-10-27 11:10 | XMS_ITS | Encounter Summary ---
[place] [address] Care Team Providers Care Strip Roller Name Role Phone Lolly Oliveira MD Primary Care Provider [phone] Encounter Details Date Type Department Care Team [...] AM EST Hospital Encounter Non-[place] [address] Arrived documented as of this encounter Visit Diagnoses Not on filedocumented in this encounter Care Teams Strip Roller Relationship Specialty Start Date End Date Lolly Oliveira MD [address] [place] [address] PCP - General 07/17/13 documented as of this encounter
--- OUTSIDE RECORDS SUMMARY | 2023-10-27 11:10 | XMS_ITS | Encounter Summary ---
Author Organization [facility] [place] [address] Care Team Providers Care Sales Contractor Name Role Phone Lolly Oliveira MD Primary Care Provider [phone] Reason for Visit * Reason Comments Skin Check Encounter Details Date Type Department Care Team (Late st Contact Info) Description 11/23/2014 10:00 AM EDT Office Visit Dermatology at [address] [phone] Clay Ramírez MD [address] [facility] [place] [address] Dermatofibroma; Nevus; Solar lentigo Discharge Disposition: Home [...] AM [facility] Hospital Encounter Non-[place]vasive [place] [address] Arrived documented as of this encounter Visit Diagnoses Diagnosis Dermatofibroma Benign neoplasm of skin, site unspecified Nevus Benign neoplasm of skin, site unspecified Solar lentigo Other dyschromia documented in this encounter Care Teams Sales Contractor Relationship Specialty Start Date End Date Lolly Oliveira MD [address] [place] [address] PCP - General 07/17/13 documented as of this encounter
--- OUTSIDE RECORDS SUMMARY | 2023-10-27 11:10 | XMS_ITS | Encounter Summary ---
Author Organization [facility] [place] [address] Care Team Providers Care Fitness Specialist Name Role Phone Lolly Oliveira MD Primary Care Provider [phone] Reason for Visit * Auth/Cert (Routine) Specialty Diagnoses / Procedures Referred By Contac t Referred To Contact Diagnoses Left bundle-branch block, unspecified Other cardiomyopathies Left bundle branch block [I44.7]Nonischemic cardiomyopathy [I42.8] Procedures PRG CATH PLMT LEFT HEART CATH & ARTS W/INJ & ANGIO IMG S&I ELECTROPHYSIOLOGY PROCEDURE Lalit Mcmahon MD [facility] [place] [address] [facility] Referral ID Status Reason Start Date Expiration Date Visits Re quested Visits Authorized [id number] 1 1 Encounter Details Date Type Department Care Team (Late st Contact Info) Description 07/23/2022 1:00 PM EDT - 07/23/2022 5:30 PM EDT Surgery [place] [address] Lalit Mcmahon MD [facility] [place] [place] [address] ELECTROPHYSIOLOGY PROCEDURE Social History Tobacco Use Types Packs/Day Years Used Date Smoking Tobacco: Never Tobacco Cessation:Counseling Given: Not Answered Alcohol Use Standard Drinks/Week Comments Not Currently 0 (1 standard drink = 0.6 oz pur e alcohol) [facility] Inpatient Questions Answer Date Recorded Does Anyone [...] Luna Mott Patient Age: 71 y.o. Language: Yi Race: White Ethnicity: Not nor Admit date: 07/23/2022 Discharge date and time: 07/24/22 Attending Physician: Lalit Mcmahon MD Discharge Physician: Lalit Mcmahon MD Follow-up Recommendations for Providers: - s/p TURNING SANDER OPERATOR-D implant - post implant QRS 130 ms - reviewed post-implant instructions - no medication changes - Follow up in device clinic for wound/device check in ~10 days ([facility]) Inpatient Provider Contact Information: Cardiac Electrophysiology - Discharge Diagnoses (Hospital Problems) and Secondary Diagnoses (Chronic Problems): Active Hospital Problems Diagnosis ??? HFrEF (heart failure with reduced ejection fraction) Resolved Hospital Problems No resolved problems to display. Active Non-Hospital Problems Diagnosis ??? Dermatofibroma ??? Nevus ??? Solar lentigo Operations/Major Procedures: 07/23/22: [facility] H[facility]PITAL TURNING SANDER OPERATOR-D implant History of Presentation: 71 y.o. female with a history of HFrEF, LBBB, QRS >150, NYHA II who is POD#1 of TURNING SANDER OPERATOR-D implant ([employer]). Hospital Course: Elective admission for TURNING SANDER OPERATOR-D implant Admitted post-implant for pain management, telemetry [...] (heart failure with reduced ejection fraction) [I50.20] TURNING SANDER OPERATOR-D implant Admission Condition: good Indication for Admission: [...] g Refills: 3 fluticasone propionate 50 mcg/actuation [place], Suspension Commonly known as: Flonase 1 spray [...] incision. Make sure to use a clothing and textiles teacher (such as a towel) in between the [...] F. The office scheduling phone number is [phone]. ARM MOVEMENT RESTRICTIONS POST-IMPLANT - Do not [...] please call the Cardiac ElectrophysiologyTriage Nurse at [phone], option 3. General Instructions None Discharge References/Attachments [...] incision. Make sure to use a clothing and textiles teacher (such as a towel) in between the [...] F. The office scheduling phone number is [phone]. ARM MOVEMENT RESTRICTIONS POST-IMPLANT - Do not [...] please call the Cardiac ElectrophysiologyTriage Nurse at [phone], option 3. documented in this encounter Medications [...] with spacer fluticasone propionate (Flonase) 50 mcg/actuation [place], Suspension 1 spray by Each Nare route [...] Cardiac Electrophysiology Post-Implant Device Interrogation Luna Mott [id number] 07/24/2022 History: Luna Mott is a 71 y.o. female with a history of HFrEF, LBBB, QRS >150, NYHA II who is POD#1 of TURNING SANDER OPERATOR-D implant ([employer]). Overall feels well this morning. Ready [...] WOB Neuro- A&Ox3 Device Interrogation: Data ?? Stone Cutter Model # Serial # Generator [employer] [id number] Atrial Lead [employer] [id number] RV Lead [employer] 0672 [id number] LV Lead [employer] [id number] ?? Diagnostics Pacing Mode: DDD 60-130 Underlying Rhythm: [place] Atrial Episodes: None Ventricular Episodes: None FINAL PROGRAMMING: Pacing: Mode Lower rate (ppm) Upper rate (ppm) ?? DDD 60 130 VF: Rate (bpm) #Antitachycardia pacing First shock energy (J) ?? 200 Quick convert 41 VT: 170 Monitor only Monitor only ? Battery and Leads Impedances (ohms) Sensing (mV) Thresholds HV RA RV LV RA RV LV RA RV LV 73 [phone] (LVa) 7.7 13.1 >25 0.4V @ 0.4 ms 0.4V @ 0.4 ms 0.5 V @ 1.0 ms POD#1 CXR: All leads in nominal positioning Impression: 71 y.o. female who is s/p TURNING SANDER OPERATOR-D implant for LBBB, NYHA II, HFrEF. - Appropriate device function post-implant - CXR negative for post-implant complications - Changed sensed AV delay from 130 to 110 Plan: 1. Reviewed standard post-implant discharge instructions (see patient instructions) including arm restrictions, wound care, bathing, and driving 2. No medication changes. 3. Follow up in device clinic for wound/device check in ~10 days ([facility]) Fadi Nunez MD 07/24/2022 Pager: [phone] I met with the patient today and [...] agreement. ? Dr. Lalit Mcmahon, electrophysiology attending ([id number]) * Zaria Wright RN - 07/23/2022 8:28 [...] HF, QRS > 150 ms presents for TURNING SANDER OPERATOR-D placement. ROS: Denies recent fevers or chills [...] 0.9) flush 5 mL 5 mL Intravenous [id number] ramos MD ??? sodium chloride 0.9 % [...] HF, QRS > 150 ms presents for TURNING SANDER OPERATOR-D placement. Backup would be LBBAP lead. Antibiotics: cefazolin Rationales for, intended benefits and potential risk of planned procedures reviewed. The patient indicated understanding and agreement with the plan. Informed consent signed. Procedure checklist completed. Fadi Nunez MD Cardiac Electrophysiology Fellow [facility] Pager [phone] 07/23/2022 I met with the patient today [...] agreement. ? Dr. Lalit Mcmahon, electrophysiology attending ([id number]) documented in this encounter Miscellaneous Notes * Brief Op Note - Lalit Mcmahon MD - 07/23/2022 4:04 PM EDT Brief Operative Note Patient Name: Luna Mott : [id number] MR#: [id number] Case Date: 07/23/2022 Surgeon: Surgeon(s) and Role: [...] AM EST Hospital Encounter Non-[place] [address] Arrived Scheduled Orders Name Type Priority Associated Diagnoses Orde r Schedule EKG 12 Lead ECG Routine Cardiac resynchronization therapy defibrillator (TURNING SANDER OPERATOR-D) in place One Time for 1 Occurrences [...] (Bezet) 522 ms MUSE SYSTEM Calculated R [place] 78 degrees MUSE SYSTEM Calculated T [place] -71 degrees MUSE SYSTEM INTERPRETATION AV dual-paced [...] have questions please contact the health care program director that requested your imaging first. ? Electronically signed by: Kwame Vargas MD, [facility] ([phone]), at 07/24/2022 6:43 AM Narrative 07/24/2022 6:43 [...] who have questions please contactthe health care program director that requested your imaging first. Lalit Mcmahon MD IMG DX ORDERABLES * ELECTROPHYSIOLOGY PROCEDURE (07/23/2022 1:11 PM EDT) Anatomical Region Laterality Modality Other Narrative 07/23/2022 4:24 PM EDT Table formatting from the original result was not included. BIVENTRICULAR ICD IMPLANTATION Threader Operator: Lalit Mcmahon MD Fellow: Fadi Nunez MD [...] lateral branch of the CS in the DOMINICAN view. This branch was cannulated with a [...] the entire procedure. LEAD AND GENERATOR DATA: Stone Cutter Model # Serial # Generator [employer] [id number] Atrial Lead [employer] [id number] RV Lead [employer] [id number] [id number] LV Lead [employer] 4674 [id number] PACE/SENSE DATA: Sensed wave (mV) Threshold (V) [...] (cGycm2) 300 CONCLUSIONS: Successful implantation of a [employer] biventricular ICD for primary prevention and treatment of symptoms related to congestive heart failure. Follow up in EP clinic in 1-2 months. Procedures performed: new ICD system ( cpt 54811-V3); implant LV lead at time of ICD insertion (cpt 45049) I have read, edited and approve of this report: Lalit Mcmahon MD [facility] Cardiac Electrophysiology 07/23/2022 4:22 PM Procedure Note Lalit Mcmahon MD - 07/23/2022 BIVENTRICULAR ICD IMPLANTATION Threader Operator: Lalit Mcmahon MD Fellow: Fadi Nunez MD [...] appropriate lateralbranch of the CS in the [place]IN[place] view. This branch was cannulated with a [...] in the entireprocedure. LEAD AND GENERATOR DATA: Stone Cutter Model # Serial # Generator [employer] [id number] Atrial Lead [employer] [id number] [id number] RV Lead [employer] 0672 [id number] LV Lead [employer] 4674 [id number] PACE/SENSE DATA: Sensed wave (mV) Threshold (V) [...] (cGycm2) 300 CONCLUSIONS: Successful implantation of a [employer] biventricular ICD forprimary prevention and treatment of symptoms related to congestive heartfailure. Follow up in EP clinic in 1-2 months. Procedures performed: new ICD system ( cpt 56534-H7); implant LV lead attime of ICD insertion (cpt 81812) I have read, edited and approve of this report: Lalit Mcmahon MD S Cardiac Electrophysiology 07/23/2022 4:22 PM Lalit Mcmahon MD EP PROCEDURE ORDERAB LES * POCT Glucose (07/23/2022 12:54 PM EDT) [facility] Signature Glucose, POC 83 65 - 199 mg/dL [facility] Comment: Supplemental ranges: <140 mg/dL before meals <180 mg/dL all other times of the day Blood 07/23/2022 12:5 4 PM EDT 07/23/2022 12:54 PM EDT Lalit Mcmahon MD POINT OF CARE TEST O RDERABLES Performing Organization Address City/[facility]/ZIP Co de Phone Number [facility] [place] [address] * EKG 12 Lead (07/23/2022 12:33 PM EDT) Ventricular rate 72 BPM MUSE SYSTEM Atrial Rate 72 BPM MUSE SYSTEM P-R Interval 158 ms MUSE SYSTEM QRS Duration 176 ms MUSE SYSTEM Q-T Interval 458 ms MUSE SYSTEM QTC Calculated (Bezet) 501 ms MUSE SYSTEM Calculated P [place] 34 degrees MUSE SYSTEM Calculated R [place] 12 degrees MUSE SYSTEM Calculated T [place] -173 degrees MUSE SYSTEM INTERPRETATION Normal sinus rhythm Left bundle branch block Abnormal ECG No previous ECGs available Confirmed by MD Salome, Lalit ([id number]) on 07/23/2022 1:19:03 PM MUSE SYSTEM 07/23/2022 12:3 3 PM EDT 07/23/2022 1:19 PM EDT Lalit Mcmahon MD ECG ORDERABLES Performing Organization Address [facility]/ZIP Co de Phone Number MUSE SYSTEM * Differential, Automated (07/23/2022 11:55 AM EDT) Neutrophil % 62.6 % [facility] Neutrophil Absolute 4.14 1.70 - 6.10 x10(3)/[facility] Lymph % 27.0 % [facility] Lymphocytes Abs 1.8 0.9 - 3.2 x10(3)/[facility] LAB[facility] Monocyte % 7.3 % [facility] Monocyte Abs 0.5 0.3 - 0.9 x10(3)/[facility] Eos % 2.3 % [facility] Eosinophils Abs 0.2 0.0 - 0.4 x10(3)/[facility] Basophil % 0.6 % [facility] IT[facility] LAB[facility] Baso Absolute 0.0 0.0 - 0.1 x10(3)/[facility] Immature Gran % 0.20 % [facility] Comment: Immature granulocytes(IG's)percentage and absolute count will include metamyelocytes, myelocytes, and promyelocytes. Blood smears from CBCs yielding IG's will be scanned manually for concordance. If this scan disagrees with the automated IG or if promyelocytes are noted, a manual differential will be performed. Immature Gran Absolute 0.01 0.00 - 0.04 x10(3)/[facility] Blood 07/23/2022 11:5 5 AM EDT 07/23/2022 12:07 PM EDT Narrative Resulting Agency Comment Spec In Lab Lalit Mcmahon MD HEMATOLOGY ORDERABLE S [facility] [place] [address] * Hemogram (07/23/2022 11:55 AM EDT) White Blood Cell 6.6 4.0 - 9.5 x10(3)/[facility] Red Blood Cell 4.50 4.00 - 5.21 x10(6)/[facility] Hemoglobin 13.7 11.7 - 15.5 g/dL [facility] Hematocrit 42.5 35.7 - 45.8 % [facility] Mean Cell Volume 94.4 82.6 - 94.4 fL [facility] Mean Cell Hemoglobin 30.4 27.1 - 32.0 pg [facility] Mean Cell Hemoglobin Concentration 32.2 31.7 - 35.0 g/dL [facility] Platelet 193 145 - 357 x10(3)/[facility] RDW Standard Deviation 45.5 37.0 - 46.0 fL [facility] RDW coefficient of variation 13.2 11.5 - 14.1 % [facility] Mean Platelet Volume 9.5 7.6 - 12.9 fL [facility] NRBC% auto 0.0 % [facility] ITAL LAB[facility] NRBC Absolute 0.000 0.000 - 0.000 x10(3)/[facility] Blood 07/23/2022 11:5 5 AM EDT 07/23/2022 12:07 PM EDT Narrative Resulting Agency Comment Spec In Lab Lalit Mcmahon MD HEMATOLOGY ORDERABLE S [facility] [place] [address] * (ABNORMAL) BMP w/fasting Glucose (07/23/2022 11:55 AM EDT) Glucose Fasting 110(H) 65 - 99 mg/dL [facility] Comment: ?Fasting* Glucose Interpretive [...] of Diabetes Mellitus, Position Statement from the [place] [employer]. ??Diabetes Care, Volume 33, Supplement 1, Mar 2009 Blood Urea Nitrogen 23(H) 8 - 18 mg/dL [facility] Creatinine 1.07 0.70 - 1.20 mg/dL [facility] Sodium 141 135 - 145 mmol/L [facility] Potassium 4.8 3.5 - 5.0 mmol/L [facility] Comment: Please note: ??Patients with WBC >100,000 may have falsely elevated Potassium levels. ??For accurate Potassium quantification in these patients send serum separator tube (gold top) for subsequent determinations. ??Contact the Clinical Chemistry Laboratory if there are any questions. Chloride 106 98 - 107 mmol/L [facility] Carbon Dioxide 26 22 - 31 mmol/L [facility] Anion Gap 9 5 - 15 mmol/L [facility] Calcium 9.7 8.5 - 10.5 mg/dL [facility] Est Glomerular Filtration Rate 55(L) >=60 mL/min/1. 73 m?? [facility] Comment: This patient's estimated [...] Mcmahon MD CHEMISTRY ORDERABLES Performing Organization Address [facility] Co de Phone Number [facility] [place] [address] * Prothrombin Time (07/23/2022 11:55 AM EDT) Prothrombin Time 11.7 9.4 - 12.5 sec [facility] International Normalization Ratio 1.0 [facility] Comment: An INR <2.0 [...] MD HEMATOLOGY ORDERABLE S Performing Organization Address City/[facility] Co de Phone Number [facility] [place] [address] documented in this encounter Visit Diagnoses Diagnosis HFrEF (heart failure with reduced ejection fraction)- Primary Left bundle branch block Other left bundle branch block Nonischemic cardiomyopathy Other primary cardiomyopathies Cardiac resynchronization therapy defibrillator (TURNING SANDER OPERATOR-D) in place Left bundle branch block Other [...] Routine documented in this encounter Care Teams Fitness Specialist Relationship Specialty Start Date End Date Lolly Oliveira MD [address] [place] [address] PCP - General 07/17/13 documented as of this encounter
--- OUTSIDE RECORDS SUMMARY | 2023-10-27 11:10 | XMS_ITS | Encounter Summary ---
Author Organization [facility] [place] [address] Care Team Providers Care Junior Network Engineer Name Role Phone Lolly Oliveira MD Primary Care Provider [phone] Encounter Details Date Type Department Care Team (Latest Contact Info) Description 07/17/2013 8:40 AM EDT - 07/17/2013 11:59 PM EDT Hospital Encounter XRay at [address] [place] [phone] CL[address], [facility] Discharge Disposition: Home Social [...] AM EST Hospital Encounter Non-[place] [address] Arrived documented as of this encounter Visit Diagnoses Not on filedocumented in this encounter Care Teams Junior Network Engineer Relationship Specialty Start Date End Date Lolly Oliveira MD [address] [place] [address] PCP - General 07/17/13 documented as of this encounter
--- OUTSIDE RECORDS SUMMARY | 2023-10-27 11:10 | XMS_ITS | Encounter Summary ---
Author Organization [facility] [place] [address] Care Team Providers Care Manager Power Name Role Phone Unavailable Primary Care Provider Unavailabl e Encounter Details Date Type Department Care Team (Late st Contact Info) Description 07/04/2012 [place] [phone] Eleno Christian MD [facility] [place] [address] Social History Tobacco Use Types Packs/Day Years [...] AM EST Hospital Encounter [place] [address] Arrived documented as of this encounter Procedures [...] is a Non-reportable exam Eleno Christian MD [facility] FILM LIBRARY ORD ERABLES documented in this encounter Visit Diagnoses Not on filedocumented in this encounter
--- OUTSIDE RECORDS SUMMARY | 2023-10-27 11:10 | XMS_ITS | Encounter Summary ---
Author Organization [facility] [place] [address] Care Team Providers Care Telecommunication Equipment Repairer Name Role Phone Lolly Oliveira MD Primary Care Provider [phone] Reason for Visit * Diagnostic Test (Routine) - Closed Specialty Diagnoses / Procedures Referred By Contac t Referred To Contact Radiology Diagnoses Left bundle branch block Nonischemic cardiomyopathy Procedures MRI Cardiac Morphology Function With Flow Velocity Quantification wwo Contrast MRI Cardiac Morphology Function wwo Contrast Lalit Mcmahon MD [facility] [place] [address] [facility] [place] [address] Referral ID Status Reason Start Date Expiration Date V isits Requested Visits Authorized [id number] Closed Specialty Service Requested 05/06/2022 11/07/2023 2 1 Encounter Details Date Type Department Care Team (Latest Contact Info) Description 07/14/2022 9:09 AM EDT - 07/14/2022 11:59 PM EDT Hospital [place] [address] Lalit Mcmahon MD [facility] [place] [address] Discharge Disposition: Home Social History Tobacco Use [...] with spacer fluticasone propionate (Flonase) 50 mcg/actuation [place], Suspension 1 spray by Each Nare route [...] AM EST Hospital Encounter Non-[place] [address] Arrived documented as of this [...] mLs documented in this encounter Care Teams Telecommunication Equipment Repairer Relationship Specialty Start Date End Date Lolly Oliveira MD [address] [place] [address] PCP - General 07/17/13 documented as of this encounter
--- OUTSIDE RECORDS SUMMARY | 2023-10-27 11:10 | XMS_ITS | Encounter Summary ---
Author Organization [facility] [place] [address] Care Team Providers Care Cull Grader Name Role Phone Lolly Oliveira MD Primary Care Provider [phone] Encounter Details Date Type Department Care Team (Late st Contact Info) Description 10/09/2021 Telephone Dermatology at [address] [address] Nora Meredith LPN Social History [...] [facility] Hospital Encounter Non-[place] [address] Arrived documented as of this encounter Visit Diagnoses Not on filedocumented in this encounter Care Teams Cull Grader Relationship Specialty Start Date End Date Lolly Oliveira MD [address] [place] [address] PCP - General 07/17/13 documented as of this encounter
--- OUTSIDE RECORDS SUMMARY | 2023-10-27 11:10 | XMS_ITS | Encounter Summary ---
Author Organization [facility] [place] [address] Care Team Providers Care Psychiatric Arnp Name Role Phone Lolly Oliveira MD Primary Care Provider [phone] Encounter Details Date Type Department Care Team (Late st Contact Info) Description 04/01/2021 3:30 PM EST Office Visit Dermatology at [address] [phone] Clay Ramírez MD [address], [place] [address] Psoriasis, guttate Social History Tobacco Use Types [...] to clinic here in 2 months CC: JAEMSON Curry MD documented in this encounter Plan of Treatment Upcoming Encounters Date Type Department Care Team (Late st Contact Info) Description 01/16/2024 10:00 AM EST Hospital Encounter Non-[place] [address] Arrived documented as of this encounter Visit Diagnoses Diagnosis Psoriasis, guttate Other psoriasis documented in this encounter Care Teams Psychiatric Arnp Relationship Specialty Start Date End Date Lolly Oliveira MD [address] [place] [address] PCP - General 07/17/13 documented as of this encounter
--- OUTSIDE RECORDS SUMMARY | 2023-10-27 11:10 | XMS_ITS | Encounter Summary ---
Author Organization [facility] [place] [address] Care Team Providers Care Counter Maker Name Role Phone Unavailable Primary Care Provider Unavailabl e Encounter Details Date Type Department Care Team (Late st Contact Info) Description 07/14/2013 External Results XRay at [address] [place] [address] Provider, Scanning Social History Tobacco Use Types [...] AM EST Hospital Encounter Non-Invasive Cardiology Lab [facility] [place] [address] Arrived documented as of this encounter Procedures [...]
--- OUTSIDE RECORDS SUMMARY | 2023-10-27 11:10 | XMS_ITS | Encounter Summary ---
Author Organization [facility] [place] [place] [address] Care Team Providers Care Hand Kiss Setter Name Role Phone Lolly Oliveira MD Primary Care Provider [phone] Reason for Referral * Diagnostic Test (Routine) - Closed Specialty Diagnoses / Procedures Referred By Contac t Referred To Contact Radiology Diagnoses Left bundle branch block Nonischemic cardiomyopathy Procedures MRI Cardiac Morphology Function With Flow Velocity Quantification wwo Contrast MRI Cardiac Morphology Function wwo Contrast Lalit Mcmahon MD [facility] [place] [address] [place] [address] Referral ID Status Reason Start Date Expiration Date V isits Requested Visits Authorized [id number] Closed Specialty Service Requested 05/06/2022 11/07/2023 2 1 Encounter Details Date Type Department Care Team (Late st Contact Info) Description 05/06/2022 Orders Only Cardiology at [address] [address] Lalit Mcmahon MD [facility] [place] [address] Left bundle branch block; Nonischemic cardiomyopathy Social [...] AM EST Hospital Encounter Non-[place] [address] Arrived documented as of this encounter Results [...] who have questions please contact the health wound care specialist that requested your imaging first. [...] patients who have questions please contactthe health wound care specialist that requested your imaging first. Lalit Mcmahon MD IMG MRI ORDERABLES documented in this encounter Visit Diagnoses Diagnosis Left bundle branch block Other left bundle branch block Nonischemic cardiomyopathy Other primary cardiomyopathies Left bundle branch block Other left bundle branch block Nonischemic cardiomyopathy Other primary cardiomyopathies documented in this encounter Care Teams Hand Kiss Setter Relationship Specialty Start Date End Date Lolly Oliveira MD [address] [place] [address] PCP - General 07/17/13 documented as of this encounter
--- OUTSIDE RECORDS SUMMARY | 2023-10-27 11:10 | XMS_ITS | Encounter Summary ---
[place] [address] Care Team Providers Care Preschool Education Director Name Role Phone Lolly Oliveira MD Primary Care Provider [phone] Encounter Details Date Type Department Care Team (Latest Contact Info) Description 07/26/2013 9:45 AM EDT - 07/26/2013 11:59 PM EDT Hospital [place] [address] Mammographic microcalcification Social History Tobacco Use Types [...] AM EST Hospital Encounter [place] [address] Arrived documented as of this encounter Procedures Procedure Name Priority Date/Time Associated Diagnosis Comments SURGICAL PATHOLOGY REPORT Routine 07/26/2013 12:12 PM EDT MAMMO SPECIMEN IMAGING DURING BIOPSY Routine 07/26/2013 11:58 AM EDT Mammographic microcalcification documented in this encounter Results * Surgical Pathology Report (07/26/2013 12:12 PM EDT) Final Diagnosis ? [facility] ? Provider: ?? ELENO CHRISTIAN ?? Pt. Name: ?? JING ALVARENGA ? Acc #: ?[id number] ?Pt. ? Col Date: ?? 07/26/2013 ? [...] Name: ?? JING ALVARENGA ? Acc #: ?[id number] ?Pt. ? Col Date: ?? 07/26/2013 ? [...] FCD, adenosis, DCIS 07/28/2013 8:29 AM EDT [facility] BREAST STRUCTURE / Unknown 07/26/2013 12:12 PM EDT 07/26/2013 12:12 PM EDT Eleno Christian MD PATHOLOGY/CYTOLOGY O RDERABLES Performing Organization Address City/State/[facility] Co al Phone Number [facility] [place] [place] [address] * Mammo Specimen Imaging During Biopsy (07/26/2013 [...] microcalcification documented in this encounter Care Teams Preschool Education Director Relationship Specialty Start Date End Date Lolly Oliveira MD [address] [place] [address] PCP - General 07/17/13 documented as of this encounter
--- OUTSIDE RECORDS SUMMARY | 2023-10-27 11:10 | XMS_ITS | Encounter Summary ---
Author Organization [facility] [place] [address] Care Team Providers Care Croze Cutter Name Role Phone Lolly Oliveira MD Primary Care Provider [phone] Reason for Visit * Reason Comments Follow-up Encounter Details Date Type Department Care Team (Late st Contact Info) Description 06/06/2021 8:45 AM EDT Office Visit Dermatology at [address] [address] Clay Ramírez MD [address] [facility] [place] [address] Psoriasis, guttate Social History Tobacco Use Types [...] st Contact Info) Description 01/16/2024 10:00 AM [facility] Hospital Encounter Non-Invasive [place] [phone] Arrived documented as of this encounter Visit Diagnoses Diagnosis Psoriasis, guttate Other psoriasis documented in this encounter Care Teams Croze Cutter Relationship Specialty Start Date End Date Lolly Oliveira MD [address] [place] [address] PCP - General 07/17/13 documented as of this encounter
--- OUTSIDE RECORDS SUMMARY | 2023-10-27 11:10 | XMS_ITS | Encounter Summary ---
Author Organization [facility] [place] [address] Care Team Providers Care Fire Pilot Name Role Phone Lolly Oliveira MD Primary Care Provider Encounter Details Date Type Department Care Team (Late st Contact Info) Description 07/26/2013 [place] [phone] Eleno Christian MD [facility] [place] [address] Social History Tobacco Use Types Packs/Day Years [...] AM EST Hospital Encounter Non-[place] [address] Arrived documented as of this encounter Visit Diagnoses Not on filedocumented in this encounter Care Teams Fire Pilot Relationship Specialty Start Date End Date Lolly Oliveira MD [address] [place] [address] PCP - General 07/17/13 documented as of this encounter
--- OUTSIDE RECORDS SUMMARY | 2023-10-27 11:10 | XMS_ITS | Encounter Summary ---
[place] [address] Care Team Providers Care Motor Vehicle Or Caravan Salesperson Name Role Phone Lolly Oliveira MD Primary Care Provider [phone] Encounter Details Date Type Department Care Team (Late st Contact Info) Description 07/17/2013 [place] [phone] Lolly Oliveira MD [address] [place], [place] [id number] Social History Tobacco Use Types Packs/Day Years [...] AM EST Hospital Encounter [place] [phone] Arrived documented as of this encounter Procedures [...] (PERFORMED ON 07/06/13 AND 07/14/13) FROM [facility] DATED 07/17/13: ?? DIAGNOSTIC IMAGING SUMMARY: ?? [...] OUTSIDE MAMMOGRAMS (PERFORMED ON 07/06/13 AND 07/14/13) [facility] DATED 07/17/13: DIAGNOSTIC IMAGING SUMMARY: RIGHT [...] on filedocumented in this encounter Care Teams Motor Vehicle Or Caravan Salesperson Relationship Specialty Start Date End Date Lolly Oliveira MD [address] [place] [address] PCP - General 07/17/13 documented as of this encounter
--- OUTSIDE RECORDS SUMMARY | 2023-10-27 11:10 | XMS_ITS | Encounter Summary ---
[place] [address] Care Team Providers Care Senior Power Scheduler Name Role Phone Lolly Oliveira MD Primary Care Provider [phone] Encounter Details Date Type Department Care Team [...] AM EST Hospital Encounter Non-[place] [address] Arrived documented as of this encounter Visit Diagnoses Not on filedocumented in this encounter Care Teams Senior Power Scheduler Relationship Specialty Start Date End Date Lolly Oliveira MD [address] [place] [address] PCP - General 07/17/13 documented as of this encounter
--- OUTSIDE RECORDS SUMMARY | 2023-10-27 11:10 | XMS_ITS | Encounter Summary ---
Author Organization [facility] [place] [address] Care Team Providers Care Automatic Beading Lathe Operator Name Role Phone Lolly Oliveira MD Primary Care Provider [phone] Encounter Details Date Type Department Care Team (Late Contact Info) Description 01/14/2022 Telephone Dermatology at [address] [address] Nora Meredith LPN Social History [...] return to phototherapy. New order sent to [facility]. Reviewed with patient Dr. Mar recommendation. She agrees with plan of care. Advised patient order will be sent to [facility]. She voiced understanding. documented in this encounter Plan of Treatment Upcoming Encounters Date Type Department Care Team (Late Contact Info) Description 01/16/2024 10:00 AM EST Hospital Encounter Non-Invasive [place] [address] Arrived documented as of this encounter Visit Diagnoses Not on filedocumented in this encounter Care Teams Automatic Beading Lathe Operator Relationship Specialty Start Date End Date Lolly Oliveira MD [address] [place] [address] PCP - General 07/17/13 documented as of this encounter
--- OUTSIDE RECORDS SUMMARY | 2023-10-27 11:10 | XMS_ITS | Encounter Summary ---
Author Organization [facility] [place] [address] Care Team Providers Care Rn Correctional Name Role Phone Unavailable Primary Care Provider Unavailabl e Encounter Details Date Type Department Care Team (Late st Contact Info) Description 07/14/2013 [place] [phone] Eleno Christian MD [facility] [place]NOST[place] [address] Social History Tobacco Use Types Packs/Day Years [...] AM EST Hospital Encounter Non[place] [phone] Arrived documented as of this encounter Visit Diagnoses Not on filedocumented in this encounter
--- OUTSIDE RECORDS SUMMARY | 2023-10-27 11:10 | XMS_ITS | Encounter Summary ---
Author Organization Count Includes [facility] Address [facility] [place] [address] Care Team Providers Care Covered Buckle Assembler Name Role Phone Lolly Oliveira MD Primary Care Provider [phone] Reason for Visit * Auth/Cert (Routine) Specialty Diagnoses / Procedures Referred By Contac t Referred To Contact Diagnoses Left bundle-branch block, unspecified Other cardiomyopathies Left bundle branch block [I44.7]Nonischemic cardiomyopathy [I42.8] Procedures PRG CATH PLMT LEFT HEART CATH & ARTS W/INJ & ANGIO IMG S&I ELECTROPHYSIOLOGY PROCEDURE Lalit Mcmahon MD [facility] [place] [address] [facility] Referral ID Status Reason Start Date Expiration Date Visits Re quested Visits Authorized [id number] 1 1 Encounter Details Date Type Department Care Team (Latest Contact Info) Description 07/23/2022 11:39 AM EDT - 07/24/2022 10:23 AM EDT Hospital [place] [id number] Lalit Mcmahon MD [facility] [place] [address] Left bundle branch block; Nonischemic cardiomyopathy; Cardiac resynchronization therapy defibrillator (PROJECT STRUCTURAL ENGINEER-D) in place Discharge Disposition: Home Social History [...] Luna Mott Patient Age: 71 y.o. Language: Luxembourgish Race: White Ethnicity: Not nor Admit date: 07/23/2022 Discharge date and time: 07/24/22 Attending Physician: Lalit Mcmahon MD Discharge Physician: Lalit Mcmahon MD Follow-up Recommendations for Providers: - s/p PROJECT STRUCTURAL ENGINEER-D implant - post implant QRS 130 ms [...] Nevus ??? Solar lentigo Operations/Major Procedures: 07/23/22: [facility] PROJECT STRUCTURAL ENGINEER-D implant History of Presentation: 71 y.o. female with a history of HFrEF, LBBB, QRS >150, NYHA II who is POD#1 of PROJECT STRUCTURAL ENGINEER-D implant ([employer]). Hospital Course: Elective admission for PROJECT STRUCTURAL ENGINEER-D implant Admitted post-implant for pain management, telemetry [...] (heart failure with reduced ejection fraction) [I50.20] PROJECT STRUCTURAL ENGINEER-D implant Admission Condition: good Indication for Admission: [...] g Refills: 3 fluticasone propionate 50 mcg/actuation Bells, Suspension Commonly known as: Flonase 1 spray [...] the incision. Make sure to use a bad cloth checker (such as a towel) in between the [...] F. The office scheduling phone number is [phone]. ARM MOVEMENT RESTRICTIONS POST-IMPLANT - Do not [...] please call the Cardiac ElectrophysiologyTriage Nurse at [phone], option 3. General Instructions None Discharge References/Attachments None Lalit Mcmahon MD S Cardiac Electrophysiology 07/24/2022 12:33 PM documented in this encounter Discharge Instructions * Patient Instructions* Fadi Nunez MD - 07/24/2022 8:10 AM EDT FINAL ICD/PACEMAKER RECOMMENDATIONS: 1. Standard post implant discharge instructions (see below): 2. Medications as listed above. You may use ice packs over the incision. Make sure to use a bad cloth checker (such as a towel) in between the [...] F. The office scheduling phone number is [phone]. ARM MOVEMENT RESTRICTIONS POST-IMPLANT - Do not [...] please call the Cardiac ElectrophysiologyTriage Nurse at [phone], option 3. documented in this encounter Medications [...] with spacer fluticasone propionate (Flonase) 50 mcg/actuation Bells, Suspension 1 spray by Each Nare route [...] Cardiac Electrophysiology Post-Implant Device Interrogation Luna Mott [id number] 07/24/2022 History: Luna Mott is a 71 y.o. female with a history of HFrEF, LBBB, QRS >150, NYHA II who is POD#1 of PROJECT STRUCTURAL ENGINEER-D implant ([employer] Sci). Overall feels well this morning. Ready [...] WOB Neuro- A&Ox3 Device Interrogation: Data ?? Garbage Collector Driver Model # Serial # Generator [employer] [id number] Atrial Lead [employer] [id number] RV Lead [employer] [id number] [id number] LV Lead [employer] [id number] ?? Diagnostics Pacing Mode: DDD 60-130 Underlying Rhythm: [place] Atrial Episodes: None Ventricular Episodes: None FINAL PROGRAMMING: Pacing: Mode Lower rate (ppm) Upper rate (ppm) ?? DDD 60 130 VF: Rate (bpm) #Antitachycardia pacing First shock energy (J) ?? 200 Quick convert 41 VT: 170 Monitor only Monitor only ? Battery and Leads Impedances (ohms) Sensing (mV) Thresholds HV RA RV LV RA RV LV RA RV LV 73 [phone] (LVa) 7.7 13.1 >25 0.4V @ 0.4 ms 0.4V @ 0.4 ms 0.5 V @ 1.0 ms POD#1 CXR: All leads in nominal positioning Impression: 71 y.o. female who is s/p PROJECT STRUCTURAL ENGINEER-D implant for LBBB, NYHA II, HFrEF. - [...] [facility]) Fadi Nunez MD 07/24/2022 Pager: [phone] I met with the patient today and [...] agreement. ? Dr. Lalit Mcmahon, electrophysiology attending ([id number]) * Zaria Wright RN - 07/23/2022 8:28 [...] HF, QRS > 150 ms presents for PROJECT STRUCTURAL ENGINEER-D placement. ROS: Denies recent fevers or chills [...] 0.9) flush 5 mL 5 mL Intravenous [id number] ramos MD ??? sodium chloride 0.9 % [...] HF, QRS > 150 ms presents for PROJECT STRUCTURAL ENGINEER-D placement. Backup would be LBBAP lead. Antibiotics: cefazolin Rationales for, intended benefits and potential risk of planned procedures reviewed. The patient indicated understanding and agreement with the plan. Informed consent signed. Procedure checklist completed. Fadi Nunez MD Cardiac Electrophysiology Fellow [facility] Pager [phone] 07/23/2022 I met with the patient today [...] agreement. ? Dr. Lalit Mcmahon, electrophysiology attending ([id number]) documented in this encounter Miscellaneous Notes * Brief Op Note - Lalit Mcmahon MD - 07/23/2022 4:04 PM EDT Brief Operative Note Patient Name: Luna Mott : [id number] MR#: [id number] Case Date: 07/23/2022 Surgeon: Surgeon(s) and Role: [...] AM EST Hospital Encounter [place] [address] Arrived Scheduled Orders Name Type Priority Associated Diagnoses Orde r Schedule EKG 12 Lead ECG Routine Cardiac resynchronization therapy defibrillator (PROJECT STRUCTURAL ENGINEER-D) in place One Time for 1 Occurrences [...] (Bezet) 522 ms MUSE SYSTEM Calculated R [place] 78 degrees MUSE SYSTEM Calculated T [place] -71 degrees MUSE SYSTEM INTERPRETATION AV dual-paced [...] who have questions please contact the health primary health care nurse that requested your imaging first. ? Electronically signed by: Kwame Vargas MD, [facility] ([phone]), at 07/24/2022 6:43 AM Narrative 07/24/2022 6:43 [...] patients who have questions please contactthe health primary health care nurse that requested your imaging first. Electronically signed by: Kwame Vargas MD, [facility]([phone]), at 07/24/2022 6:43 AM Lalit Mcmahon MD IMG DX ORDERABLES * ELECTROPHYSIOLOGY PROCEDURE (07/23/2022 1:11 PM EDT) Anatomical Region Laterality Modality Other Narrative 07/23/2022 4:24 PM EDT Table formatting from the original result was not included. BIVENTRICULAR ICD IMPLANTATION Grinding And Polishing Laborer: Lalit Mcmahon MD Fellow: Fadi Nunez [...] lateral branch of the CS in the FRENCH view. This branch was cannulated with a [...] the entire procedure. LEAD AND GENERATOR DATA: Garbage Collector Driver Model # Serial # Generator [employer] [id number] Atrial Lead [employer] [id number] RV Lead [employer] 0672 [id number] LV Lead [employer] [id number] PACE/SENSE DATA: Sensed wave (mV) Threshold (V) [...] (cGycm2) 300 CONCLUSIONS: Successful implantation of a [employer] biventricular ICD for primary prevention and treatment of symptoms related to congestive heart failure. Follow up in EP clinic in 1-2 months. Procedures performed: new ICD system ( cpt 00813-J2); implant LV lead at time of ICD insertion (cpt 79897) I have read, edited and approve of this report: Lalit Mcmahon MD S Cardiac Electrophysiology 07/23/2022 4:22 PM Procedure Note Lalit Mcmahon MD - 07/23/2022 BIVENTRICULAR ICD IMPLANTATION Grinding And Polishing Laborer: Lalit Mcmahon MD Fellow: Fadi Nunez [...] appropriate lateralbranch of the CS in the FRENCH view. This branch was cannulated with a [...] in the entireprocedure. LEAD AND GENERATOR DATA: Garbage Collector Driver Model # Serial # Generator [employer] [id number] Atrial Lead [employer] [id number] [id number] RV Lead [employer] 0672 [id number] LV Lead [employer] [id number] PACE/SENSE DATA: Sensed wave (mV) Threshold (V) [...] (cGycm2) 300 CONCLUSIONS: Successful implantation of a [employer] biventricular ICD forprimary prevention and treatment of symptoms related to congestive heartfailure. Follow up in EP clinic in 1-2 months. Procedures performed: new ICD system ( cpt 26490-W3); implant LV lead attime of ICD insertion (cpt 06374) I have read, edited and approve of this report: Lalit Mcmahon MD [facility] Cardiac Electrophysiology 07/23/2022 4:22 PM Lalit Mcmahon MD EP PROCEDURE ORDERAB LES * POCT Glucose (07/23/2022 12:54 PM EDT) Glucose, POC 83 65 - 199 mg/dL [facility] Comment: Supplemental ranges: <140 mg/dL before meals <180 mg/dL all other times of the day Blood 07/23/2022 12:5 4 PM EDT 07/23/2022 12:54 PM EDT Lalit Mcmahon MD POINT OF CARE TEST O RDERABLES Performing Organization Address [facility] Co de Phone Number [facility] [place] [address] * EKG 12 Lead (07/23/2022 12:33 PM EDT) Ventricular rate 72 BPM MUSE SYSTEM Atrial Rate 72 BPM MUSE SYSTEM P-R Interval 158 ms MUSE SYSTEM QRS Duration 176 ms MUSE SYSTEM Q-T Interval 458 ms MUSE SYSTEM QTC Calculated (Bezet) 501 ms MUSE SYSTEM Calculated P [place] 34 degrees MUSE SYSTEM Calculated R [place] 12 degrees MUSE SYSTEM Calculated T [place] -173 degrees MUSE SYSTEM INTERPRETATION Normal sinus rhythm Left bundle branch block Abnormal ECG No previous ECGs available Confirmed by MD Salome, Lalit ([id number]) on 07/23/2022 1:19:03 PM MUSE SYSTEM 07/23/2022 12:3 3 PM EDT 07/23/2022 1:19 PM EDT Lalit Mcmahon MD ECG ORDERABLES Performing Organization Address [facility] de Phone Number MUSE SYSTEM * Differential, Automated (07/23/2022 11:55 AM EDT) Neutrophil % 62.6 % [facility] Neutrophil Absolute 4.14 1.70 - 6.10 x10(3)/[facility] Lymph % 27.0 % [facility] Lymphocytes Abs 1.8 0.9 - 3.2 x10(3)/[facility] Monocyte % 7.3 % [facility] Monocyte Abs 0.5 0.3 - 0.9 x10(3)/[facility] Eos % 2.3 % [facility] Eosinophils Abs 0.2 0.0 - 0.4 x10(3)/[facility] Basophil % 0.6 % [facility] Baso Absolute 0.0 0.0 - 0.1 x10(3)/[facility] Immature Gran % 0.20 % [facility] Comment: Immature granulocytes(IG's)percentage and absolute count will include metamyelocytes, myelocytes, and promyelocytes. Blood smears from CBCs yielding IG's will be scanned manually for concordance. If this scan disagrees with the automated IG or if promyelocytes are noted, a manual differential will be performed. Immature Gran Absolute 0.01 0.00 - 0.04 x10(3)/[facility] Blood 07/23/2022 11:5 5 AM EDT 07/23/2022 12:07 PM EDT Narrative Resulting Agency Comment Spec In Lab Lalit Mcmahon MD HEMATOLOGY ORDERABLE S [facility] [place] [address] * Hemogram (07/23/2022 11:55 AM EDT) White Blood Cell 6.6 4.0 - 9.5 x10(3)/[facility] Red Blood Cell 4.50 4.00 - 5.21 x10(6)/[facility] Hemoglobin 13.7 11.7 - 15.5 g/dL [facility] Hematocrit 42.5 35.7 - 45.8 % [facility] Mean Cell Volume 94.4 82.6 - 94.4 fL [facility] Mean Cell Hemoglobin 30.4 27.1 - 32.0 pg [facility] Mean Cell Hemoglobin Concentration 32.2 31.7 - 35.0 g/dL [facility] Platelet 193 145 - 357 x10(3)/[facility] RDW Standard Deviation 45.5 37.0 - 46.0 fL [facility] RDW coefficient of variation 13.2 11.5 - 14.1 % [facility] Mean Platelet Volume 9.5 7.6 - 12.9 fL [facility] NRBC% auto 0.0 % [facility] NRBC Absolute 0.000 0.000 - 0.000 x10(3)/mcL [facility] Blood 07/23/2022 11:5 5 AM EDT 07/23/2022 12:07 PM EDT Narrative Resulting Agency Comment Spec In Lab Lalit Mcmahon MD HEMATOLOGY ORDERABLE S [facility] [address] [place] [address] * (ABNORMAL) BMP w/fasting Glucose (07/23/2022 11:55 AM EDT) Glucose Fasting 110(H) 65 - 99 mg/dL [facility] Comment: ?Fasting* Glucose Interpretive Criteria [...] of Diabetes Mellitus, Position Statement from the [employer]. ??Diabetes Care, Volume 33, Supplement 1, Mar 2009 Blood Urea Nitrogen 23(H) 8 - 18 mg/dL [facility] Creatinine 1.07 0.70 - 1.20 mg/dL [facility] Sodium 141 135 - 145 mmol/L [facility] Potassium 4.8 3.5 - 5.0 mmol/L [facility] Comment: Please note: ??Patients with WBC >100,000 may have falsely elevated Potassium levels. ??For accurate Potassium quantification in these patients send serum separator tube (gold top) for subsequent determinations. ??Contact the Clinical Chemistry Laboratory if there are any questions. Chloride 106 98 - 107 mmol/L [facility] Carbon Dioxide 26 22 - 31 mmol/L [facility] Anion Gap 9 5 - 15 mmol/L [facility] Calcium 9.7 8.5 - 10.5 mg/dL [facility] Est Glomerular Filtration Rate 55(L) >=60 mL/min/1. 73 m?? [facility] Comment: This patient's estimated GFR [...] CHEMISTRY ORDERABLES Performing Organization Address [facility] Co de Phone Number [facility] [place] [address] * Prothrombin Time (07/23/2022 11:55 AM EDT) Prothrombin Time 11.7 9.4 - 12.5 sec [facility] International Normalization Ratio 1.0 [facility] Comment: An INR <2.0 indicates [...] MD HEMATOLOGY ORDERABLE S Performing Organization Address City/[facility] Co de Phone Number [facility] [place] [address] documented in this encounter Visit Diagnoses Diagnosis HFrEF (heart failure with reduced ejection fraction)- Primary Left bundle branch block Other left bundle branch block Nonischemic cardiomyopathy Other primary cardiomyopathies Cardiac resynchronization therapy defibrillator (PROJECT STRUCTURAL ENGINEER-D) in place Left bundle branch block Other [...] Routine documented in this encounter Care Teams Covered Buckle Assembler Relationship Specialty Start Date End Date Lolly Oliveira MD [address] [place] [address] PCP - General 07/17/13 documented as of this encounter
--- OUTSIDE RECORDS SUMMARY | 2023-10-27 11:10 | XMS_ITS | Encounter Summary ---
Author Organization [facility] [place] [address] Care Team Providers Care Inner Tube Tuber Machine Operator Name Role Phone Lolly Oliveira MD Primary Care Provider [phone] Reason for Visit * Reason Comments Psoriasis Encounter Details Date Type Department Care Team (Late st Contact Info) Description 04/09/2022 1:45 PM EST Office Visit Dermatology at [address] [address] Clay Ramírez MD [address] [facility] [place] [address] Psoriasis, guttate Social History Tobacco Use Types [...] AM EST Hospital Encounter Non-Invasive [place] [address] Arrived documented as of this encounter Visit Diagnoses Diagnosis Psoriasis, guttate Other psoriasis documented in this encounter Care Teams Inner Tube Tuber Machine Operator Relationship Specialty Start Date End Date Lolly Oliveira MD [address] [place] [address] PCP - General 07/17/13 documented as of this encounter
--- OUTSIDE RECORDS SUMMARY | 2023-10-27 11:10 | XMS_ITS | Encounter Summary ---
Author Organization [facility] Address [facility] [place] [address] Care Team Providers Care Grinder Hardboard Name Role Phone Lolly Oliveira MD Primary Care Provider [phone] Reason for Visit * Auth/Cert (Routine) Specialty Diagnoses / Procedures Referred By Contac t Referred To Contact Diagnoses Left bundle-branch block, unspecified Other cardiomyopathies Left bundle branch block [I44.7]Nonischemic cardiomyopathy [I42.8] Procedures PRG CATH PLMT LEFT HEART CATH & ARTS W/INJ & ANGIO IMG S&I ELECTROPHYSIOLOGY PROCEDURE Lalit Mcmahon MD [facility] [place] [address] [facility] Referral ID Status Reason Start Date Expiration Date Visits Re quested Visits Authorized [id number] 1 1 Encounter Details Date Type Department Care Team (Late st Contact Info) Description 07/23/2022 1:08 PM EDT Anesthesia Event [place] [address] Monae Gonzalez MD [facility] [place] [address] Maria Elena Snyder CRNA [facility] [place] [address] Anesthesia Record Procedure Summary Procedure Name Responsible [...] 1307; median cubital vein (antecubital fossa), right; pqsi-dar-awylvh catheter system; Anatomical Landmarks; 20 gauge; 07/24/22; [...] 1343; metacarpal vein (top of hand), left; hqoz-oes-jsdzlv catheter system; Anatomical Landmarks; US Not Used; [...] OR Notes * Anesthesia Postprocedure Evaluation - Mnoae Gonzalez MD - 07/23/2022 5:03 PM EDT Department of Anesthesiology Post-procedure Note Patient: Luna Mott Procedure Summary Date: 07/23/22 Room / Location: [facility]LAB ROOM 3 / [facility] EP LABS Anesthesia Start: 1308 Anesthesia Stop: 1633 Procedure: ELECTROPHYSIOLOGY PROCEDURE (Left) Diagnosis: Left bundle branch block Nonischemic cardiomyopathy (Left bundle branch block [I44.7]Nonischemic cardiomyopathy [I42.8]) Providers: Lalit Mcmahon MD Responsible Provider: Monae Gonzalez MD Anesthesia Type: general ASA Status: 4 All Anesthesia Providers: Anesthesiologist: Monae Gonzalez MD; Dominique Sen MD [place]: Maria Elena Snyder CRNA Vitals Value Taken Time BP 131/46 07/23/22 1700 Temp 36.7 ??C (98.1 ??F) 07/23/22 1627 Pulse 67 07/23/22 1703 Resp 14 07/23/22 1703 SpO2 98 % 07/23/22 1703 Pain Level Vitals shown include unvalidated device data. Patient Location: PACU/[facility] Level of Consciousness: Conscious but Sleepy Pain [...] and Nonischemic CM (EF 15-20%)who presents for TELEPHONE RECORDER-D. No prior anesthetic records. Pt states that [...] daughter/son and patient who. Plan discussed with T[place] MARSHAL. Anesthesia Screening documented in this encounter Plan of Treatment Upcoming Encounters Date Type Department Care Team (Late st Contact Info) Description 01/16/2024 10:00 AM [facility] Hospital Encounter Non[place] [address] Arrived documented as of this [...] mg documented in this encounter Care Teams Grinder Hardboard Relationship Specialty Start Date End Date Lolly Oliveira MD [address] [place] [address] PCP - General 07/17/13 documented as of this encounter
--- OUTSIDE RECORDS SUMMARY | 2023-10-27 11:10 | XMS_ITS | Encounter Summary ---
[place] [address] Care Team Providers Care Programs Manager Name Role Phone Lolly Oliveira MD Primary Care Provider [phone] Encounter Details Date Type Department Care Team (Late st Contact Info) Description 04/09/2022 Refill Dermatology at [address] [address] Nora Meredith, NEWS CLIPPING CUTTER Social History Tobacco Use Types Packs/Day Years Used Date Smoking Tobacco: Never Sex and Gender Information Value Date Recorded Sex Assigned at Not on file Gender Identity Not on file Sexual Orientation Not on file documented as of this encounter Plan of Treatment Upcoming Encounters Date Type Department Care Team (Late st Contact Info) Description 01/16/2024 10:00 AM [facility] Hospital Encounter Non[place] [address] Arrived documented as of this encounter Visit Diagnoses Not on filedocumented in this encounter Care Teams Programs Manager Relationship Specialty Start Date End Date Lolly Oliveira MD [address] [place] [address] PCP - General 07/17/13 documented as of this encounter
--- OUTSIDE RECORDS SUMMARY | 2023-10-27 11:10 | XMS_ITS | Encounter Summary ---
Author Organization [facility] [place] [address] Care Team Providers Care Copy Clerk Name Role Phone Lolly Oliveira MD Primary Care Provider [phone] Reason for Visit * Reason Onset Date Comments Pre Procedure Call 07/01/2022 Encounter Details Date Type Department Care Team (Late st Contact Info) Description 07/01/2022 Telephone Cardiology at [address] [address] Rosenda Sutton RN Pre Procedure Call Social History Tobacco Use Types Packs/Day Years Used Date Smoking Tobacco: Never Sex and Gender Information Value Date Recorded Sex Assigned at Not on file Gender Identity Not on file Sexual Orientation Not on file documented as of this encounter Miscellaneous Notes * Telephone Encounter - Rosenda Sutton RN - 07/01/2022 9:30 AM EDTSummary: Pre Procedure Call: PERSONNEL DIRECTOR implant EP MICROBIOLOGY PROFESSOR COORDINATION CHECKLIST Patient Name: Luna Mott Patient Performing Zinc Miner: Lalit Mcmahon Referring Provider: Lolly Oliveira Date of Procedure: 07/23/22 Arrival Time/ Case Time: 12:00 pm / 1:00 pm Check In Location: Press Operator Assistant Desk 4W Date Patient was Called: 07/01/22 Procedure: PERSONNEL DIRECTOR Company: [employer] Type: PERSONNEL DIRECTOR-D Laterality: LEFT Orders: Yes Lab Orders: Yes Anesthesia: GA Discharge Plan/Disposition: OVERNIGHT/SSU Med Instructions: DIURETIC - hold Lasix the AM of procedure JNENIFER - hold lisinopril the AM of procedure [...] overnight , understands that they will need local company tanker driver on day of discharge Notified pt that Goff catheter may be placed on day of procedure depending on type & duration of case. documented in this encounter Plan of Treatment Upcoming Encounters Date Type Department Care Team (Late st Contact Info) Description 01/16/2024 10:00 AM [facility] Hospital Encounter Non[place] [address] Arrived documented as of this encounter Visit Diagnoses Not on filedocumented in this encounter Care Teams Copy Clerk Relationship Specialty Start Date End Date Lolly Oliveira MD [address] [place] [address] PCP - General 07/17/13 documented as of this encounter
--- OUTSIDE RECORDS SUMMARY | 2023-10-27 11:10 | XMS_ITS | Encounter Summary ---
Author Organization [facility] [place] [address] Care Team Providers Care Getter Operator Name Role Phone Lolly Oliveira MD Primary Care Provider [phone] Encounter Details Date Type Department Care Team (Latest Contact Info) Description 07/20/2013 9:26 AM EDT - 07/20/2013 11:59 PM EDT Hospital [place] [phone] CLINIC, Lolly So MD [address] [place], [place] [phone] Mammographic microcalcification Discharge Disposition: Home Social History [...] AM EST Hospital Encounter [place] [address] Arrived documented as of this encounter Procedures [...] not layer and, therefore, are not customer sales representative of milk of calcium. Again, these [...] not layer and, therefore, are not customer sales representative of milk of calcium. Again, these have an amorphous andpunctate appearance and remain indeterminate. Stereotactic guided biopsy isrecommended. Alia Fraire MD IMG MAMMO ORDERABLES documented in this encounter Visit Diagnoses Diagnosis Mammographic microcalcification documented in this encounter Care Teams Getter Operator Relationship Specialty Start Date End Date Lolly Oliveira MD [address] [place] [address] PCP - General 07/17/13 documented as of this encounter
--- OUTSIDE RECORDS SUMMARY | 2023-10-27 11:10 | XMS_ITS | Encounter Summary ---
Author Organization [facility] [place] [address] Care Team Providers Care Roving Hauler Name Role Phone Lolly Oliveira MD Primary Care Provider [phone] Reason for Visit * Reason Comments Follow-up Encounter Details Date Type Department Care Team (Late st Contact Info) Description 05/21/2022 8:00 AM EDT Office Visit Dermatology at [address] [phone] Clay Ramírez MD [address] [facility], [place] [address] Psoriasis, guttate Social History Tobacco Use Types [...] [facility] Hospital Encounter [place] [address] Arrived documented as of this encounter Visit Diagnoses Diagnosis Psoriasis, guttate Other psoriasis documented in this encounter Care Teams Roving Hauler Relationship Specialty Start Date End Date Lolly Oliveira MD [address] [place] [address] PCP - General 07/17/13 documented as of this encounter
--- OUTSIDE RECORDS SUMMARY | 2023-10-27 11:10 | XMS_ITS | Encounter Summary ---
Author Organization [facility] [place] [address] Care Team Providers Care Licensed Electrician Name Role Phone Lolly Oliveira MD Primary Care Provider [phone] Reason for Referral * Diagnostic Test (Routine) - Closed Specialty Diagnoses / Procedures Referred By Contac t Referred To Contact Radiology Diagnoses Left bundle branch block Nonischemic cardiomyopathy Procedures MRI Cardiac Morphology Function With Flow Velocity Quantification [facility] Contrast MRI Cardiac Morphology Function wwo Contrast Lalit Mcmahon MD [facility] [address] [place] [address] Referral ID Status Reason Start Date Expiration Date V isits Requested Visits Authorized [id number] Closed Specialty Service Requested 05/06/2022 11/07/2023 2 1 Reason for Visit * Diagnostic Test (Routine) - Closed Specialty Diagnoses / Procedures Referred By Contac t Referred To Contact Radiology Diagnoses Left bundle branch block Nonischemic cardiomyopathy Procedures MRI Cardiac Morphology Function With Flow Velocity Quantification o Contrast MRI Cardiac Morphology Function wwo Contrast Lalit Mcmahon MD [facility] [place] [address] [place] [address] Referral ID Status Reason Start Date Expiration Date V isits Requested Visits Authorized [id number] Closed Specialty Service Requested 05/06/2022 11/07/2023 2 1 Encounter Details Date Type Department Care Team (Latest Contact Info) Description 07/14/2022 9:08 AM EDT Hospital Encounter MRI at [facility] [place] [phone] Lalit Mcmahon MD [facility] [address] [place] [address] Left bundle branch block; Nonischemic cardiomyopathy Discharge [...] with spacer fluticasone propionate (Flonase) 50 mcg/actuation [place], Suspension 1 spray by Each Nare route [...] 71 y.o. : 1950 [address] [facility] [address] Female [phone] (home) No relevant phone numbers on file. Lolly Oliveira MD None Allergies Allergen Reactions ??? Sulfa (Sulfonamide Antibiotics) Date/Time of call: July 07, 2022/11:03 AM/ PREVIOUS MRI SCAN? HEIGHT: WEIGHT: SCHEDULED SCAN: MRI CARDIAC MORPHOLOGY FUNCTION WITH FLOW VELOCITY QUANTIFICATION WWO CONTRAST [[id number]] Order Questions Answers Where will study be performed? [facility] Radiology [120] SUBJECTIVE: Very Claustrophobic CAN [...] ( KV ) You must have a pick up driver present when you check in. This patient has been informed that they require a pick up driver to drive them home after this procedure. In the absence of a pick up driver, IR will not be able to sedate for your scan. Pt verbalized understanding of these instructions during the pre-procedure education via phone. Yes Name of pick up driver: Daughter Phone number: PRIOR SCAN DATE/S SEDATION TYPE SUCCESSFUL 07/14/22 MRI Cardiac Morphology Function with Flow Velocity Quantification wwo Contrast Ativan 1mg x 1 dose Pass Revised 08/03/17 documented in this encounter Plan of Treatment Upcoming Encounters Date Type Department Care Team (Late st Contact Info) Description 01/16/2024 10:00 AM [facility] Hospital Encounter [place] [address] Arrived documented as of this encounter Procedures [...] have questions please contact the health healthcare financial analyst that requested your imaging first. ? Electronically signed by: Greyson Herron MD, [facility] ([phone]), at 07/15/2022 9:53 AM Narrative 07/15/2022 9:53 [...] who have questions please contactthe health healthcare financial analyst that requested your imaging first. Lalit Mcmahon [...] mg documented in this encounter Care Teams Licensed Electrician Relationship Specialty Start Date End Date Lolly Oliveira MD [address] [place] [address] PCP - General 07/17/13 documented as of this encounter
--- OUTSIDE RECORDS SUMMARY | 2023-10-27 11:10 | XMS_ITS | Encounter Summary ---
Author Organization [facility] [place] [address] Care Team Providers Care Quarrying Specialist Name Role Phone Lolly Oliveira MD Primary Care Provider [phone] Encounter Details Date Type Department Care Team (Latest Contact Info) Description 07/26/2013 9:45 AM EDT - 07/26/2013 11:59 PM EDT Hospital Encounter [place] [address] Mammographic microcalcification Social History Tobacco Use Types [...] AM EST Hospital Encounter Non-Invasive [place] [address] Arrived documented as of this encounter Procedures [...] microcalcification documented in this encounter Care Teams Quarrying Specialist Relationship Specialty Start Date End Date Lolly Oliveira MD [address] [place] [address] PCP - General 07/17/13 documented as of this encounter
[2023-10-27 12:16] VITALS: BP 145/74; PULSE 59
[2023-10-29 11:09] VITALS: BP 135/63; PULSE 65; O2SAT 95
--- OUTSIDE RECORDS SUMMARY | 2023-10-29 11:14 | XMS_ITS | Encounter Summary ---
Author Organization [facility] Address [facility] [place] [address] Care Team Providers Care Arcade Games Mechanic Name Role Phone Lolly Oliveira MD Primary Care Provider [phone] Reason for Referral * Diagnostic Test (Routine) - Closed Specialty Diagnoses / Procedures Referred By Contkoki t Referred To Contact Cardiology Diagnoses Nonischemic cardiomyopathy Biventricular ICD (implantable cardioverter-defibrillator) in place Procedures Echocardiogram Transthoracic Lalit Mcmahon MD [facility] [place] [address] Referral ID Status Reason Start Date Expiration Date V isits Requested Visits Authorized [id number] Closed Specialty Service Requested 03/15/2023 09/11/2023 1 1 Encounter Details Date Type Department Care Team (Late st Contact Info) Description 03/15/2023 Orders Only Cardiology at [address] [address] Lalit Mcmahon MD [facility] [place] [address] Nonischemic cardiomyopathy; Biventricular ICD (implantable cardioverter-defibrill ator) in place Social History Tobacco Use Types Packs/Day Years Used Date Smoking Tobacco: Never Alcohol Use Standard Drinks/Week Comments Not Currently 0 (1 standard drink = 0.6 oz pur e alcohol) [facility] Inpatient Questions Answer Date Recorded [...] EST Hospital Encounter Non-Invasive [place] [address] Arrived Scheduled Orders Name Type Priority Associated Diagnoses Order Schedule Echocardiogram Transthoracic Echocardiography Routine Nonischemic cardiomyopathy Biventricular ICD (implantable cardioverter-defibr illator) in place Expected: 05/05/2023, Expires: 11/04/2023 documented as of this encounter Visit Diagnoses Diagnosis Nonischemic cardiomyopathy Other primary cardiomyopathies Biventricular ICD (implantable cardioverter-defibrillator) in place documented in this encounter Care Teams Arcade Games Mechanic Relationship Specialty Start Date End Date Lolly Oliveira MD [address] [place] [address] PCP - General 07/17/13 documented as of this encounter
--- OUTSIDE RECORDS SUMMARY | 2023-10-29 11:14 | XMS_ITS | Encounter Summary ---
Author Organization [facility] Address [address] [place] [address] Care Team Providers Care Braid Pattern Setter Name Role Phone Lolly Oliveira MD Primary Care Provider [phone] Encounter Details Date Type Department Care Team (Late st Contact Info) Description 04/01/2005 Results Only [facility] [address] [place] [address] Blair Dukes MD [address] [place] [id number] Social History Tobacco Use Types Packs/Day Years [...] ? JING ALVARENGA ? Accession #: ? [id number] ? : ? 1950 (Age: 54) ??F [...] (A). Received in [place]' s fixative labelled [place] and #2 ??transverse colon bx is a single 0.2 x 0.2 x 0.2 cm tissue, submitted intact as (B). ??(Dr. Lechuga)/[facility] End of Report [facility] 04/01/2005 04/02/2005 15: 24 EST Blair Dukes MD PATHOLOGY ORDERABLES [facility] [address] [place] [address] documented in this encounter Visit Diagnoses Not on filedocumented in this encounter Care Teams Braid Pattern Setter Relationship Specialty Start Date End Date Lolly Oliveira MD [address] [place] [address] PCP - General 11/13/08 documented as of this encounter
--- OUTSIDE RECORDS SUMMARY | 2023-10-29 11:14 | XMS_ITS | Encounter Summary ---
Author Organization [facility] Address [address] [place] [address] Care Team Providers Care Salvage Worker Name Role Phone Unavailable Primary Care Provider Unavailabl e Encounter Details Date Type Department Care Team (Late st Contact Info) Description 11/07/2008 Orders Only [facility] Laboratory Services - [facility] ([facility]) [address] [place] [address] Kenneth Parker MD [address] [place] [address] Social History Tobacco Use Types Packs/Day Years [...] ? LYLE, JING ? Accession #: ? [id number] ? : ? 1950 (Age: 58) ??F [...] Co de Phone Number [facility] [address] [place] [address] documented in this encounter Visit Diagnoses Not on filedocumented in this encounter
--- OUTSIDE RECORDS SUMMARY | 2023-10-29 11:14 | XMS_ITS | Encounter Summary ---
Author Organization [facility] [place] [address] Care Team Providers Care Supervisor Paint Name Role Phone Lolly Oliveira MD Primary Care Provider [phone] Reason for Visit * Reason Onset Date Comments Post Procedure Call 07/30/2022 Encounter Details Date Type Department Care Team (Late st Contact Info) Description 07/30/2022 Notes Only Cardiology at [address] [phone] Rosenda Sutton, RN Post Procedure Call Social History Tobacco Use Types Packs/Day Years Used Date Smoking Tobacco: Never Alcohol Use Standard Drinks/Week Comments Not Currently 0 (1 standard drink = 0.6 oz pur e alcohol) [facility] Inpatient Questions Answer Date Recorded Does [...] 07/30/2022 9:59 AM EDTSummary: Post Procedure Call: CENTRIFUGAL WAX MOLDER implant EP RN Post-Procedure Note: Date of Follow Up Call: 07/30/2022 Spoke With: Patient Procedure Type (choose all that apply): ICD Performing MIRLANDE Mcmahon Date of Procedure: 07/23/2022 Date of Discharge: 07/24/2022 Follow Up EP Visit Scheduled?: No No Follow Up Visit Reason: Follow up outside Outside Location: [facility] Date of Non EP Visit: [...] Note: Follow-up Recommendations for Providers: - s/p CENTRIFUGAL WAX MOLDER-D implant - post implant QRS 130 ms - reviewed post-implant instructions - no medication changes - Follow up in device clinic for wound/device check in ~10 days??([facility]) Wound Care: -Wound will heal [...] Contact Info) Description 01/16/2024 10:00 AM [facility] Hospital Encounter Non-[place] [address] Arrived documented as of this encounter Visit Diagnoses Not on filedocumented in this encounter Care Teams Supervisor Paint Relationship Specialty Start Date End Date Lolly Oliveira MD [address] [place] [address] PCP - General 07/17/13 documented as of this encounter
--- OUTSIDE RECORDS SUMMARY | 2023-10-29 11:14 | XMS_ITS | Encounter Summary ---
Author Organization [facility] Address [address] [place] [address] Care Team Providers Care Director Of Community Life Name Role Phone Lolly Oliveira MD Primary Care Provider [phone] Encounter Details Date Type Department Care Team (Late st Contact Info) Description 03/06/2003 Results Only [facility] [address] [place] [address] Lolly Oliveira MD [address] [place], [place] [id number] Social History Tobacco Use Types Packs/Day Years [...] Oliveira MD PATHOLOGY ORDERABLES Performing Organization Address City/State/[facility] Co de Phone Number [facility] [address] [place] [address] documented in this encounter Visit Diagnoses Not on filedocumented in this encounter Care Teams Director Of Community Life Relationship Specialty Start Date End Date Lolly Oliveira MD [address] [place] [address] PCP - General 11/13/08 documented as of this encounter
--- OUTSIDE RECORDS SUMMARY | 2023-10-29 11:14 | XMS_ITS | Encounter Summary ---
Author Organization [facility] [place] [address] Care Team Providers Care Special Service Representative Name Role Phone Lolly Oliveira MD Primary Care Provider [phone] Encounter Details Date Type Department Care Team (Late st Contact Info) Description 03/15/2023 Telephone Cardiology at [address] [phone] Saranya Ma Social History Tobacco Use Types Packs/Day Years Used Date Smoking Tobacco: Never Alcohol Use Standard Drinks/Week Comments Not Currently 0 (1 standard drink = 0.6 oz pur e alcohol) [facility] Inpatient Questions Answer Date Recorded [...] her to have an echo done at [facility] prior to her appt withhim there on 05/12/23. Message sent to Dr. Mcmahon asking him to put order in if he would like her to have this done. Saranya Ma Sr. Clinical Procedure [place]/Dining Room Tables Set Up Attendant documented in this encounter Plan of Treatment Upcoming Encounters Date Type Department Care Team (Late st Contact Info) Description 01/16/2024 10:00 AM EST Hospital Encounter Non-Invasive [place] [address] Arrived documented as of this encounter Visit Diagnoses Not on filedocumented in this encounter Care Teams Special Service Representative Relationship Specialty Start Date End Date Lolly Oliveira MD [address] [place] [address] PCP - General 07/17/13 documented as of this encounter
--- OUTSIDE RECORDS SUMMARY | 2023-10-29 11:14 | XMS_ITS | Encounter Summary ---
Author Organization [facility] Address [address] [place] [address] Care Team Providers Care English And Reading Instructor Name Role Phone Lolly Oliveira MD Primary Care Provider [phone] Encounter Details Date Type Department Care Team (Late st Contact Info) Description 02/11/2021 Lab Requisition [facility] Pathology & Laboratory Medicine - [address] [address] Outr Resulting Lab, Provider Social History Tobacco [...] Outr Resulting Lab MICROBIOLOGY - GENERAL ORDERABLES [facility] [address] [place] [address] * COVID-19 TESTING (02/11/2021 8:00 EST) COVID-19 rt-PCR Result Negative Negative 02/12/2021 14:17 EST [facility] Comment: This test has [...] was performed using the med SARS-CoV-2 assay ([employer] on the Med 6800 System Performing Lab Med [address] [facility] Lab 02/12/2021 14:17 EST [facility] Swab 02/11/2021 8:00 EST 02/11/2021 22:22 EST Provider Outr Resulting Lab MICROBIOLOGY - GENERAL ORDERABLES [facility] [address] [place] [address] documented in this encounter Visit Diagnoses Not on filedocumented in this encounter Care Teams English And Reading Instructor Relationship Specialty Start Date End Date Lolly Oliveira MD [address] [place] [address] PCP - General 11/13/08 documented as of this encounter
--- OUTSIDE RECORDS SUMMARY | 2023-10-29 11:14 | XMS_ITS | Encounter Summary ---
Author Organization [facility] Address [address] [place] [address] Care Team Providers Care Plastics Fitter Name Role Phone Lolly Oliveira MD Primary Care Provider [phone] Encounter Details Date Type Department Care Team (Late st Contact Info) Description 06/16/2012 Results Only [facility] Laboratory Services - [facility] ([facility]) [address] [place], [place] [phone] Lolly Oliveira MD [address] [place], [place] [phone] Social History Tobacco Use Types Packs/Day Years [...] ? JING ALVARENGA ? Accession #: ? [id number] : ? 1950 (Age: 61) ??F ?Collect [...] of Report [facility] 06/16/2012 06/17/2012 oLlly Oliveira MD PATHOLOGY ORDERABLES [facility] [address] [place] [address] documented in this encounter Visit Diagnoses Not on filedocumented in this encounter Care Teams Plastics Fitter Relationship Specialty Start Date End Date Lolly Oliveira MD [address] [place] [address] PCP - General 11/13/08 documented as of this encounter
--- OUTSIDE RECORDS SUMMARY | 2023-10-29 11:14 | XMS_ITS | Encounter Summary ---
Author Organization [facility] Address [facility] [place] [address] Care Team Providers Care Medical Care Manager Name Role Phone Lolly Oliveira MD Primary Care Provider [phone] Reason for Visit * Auth/Cert (Routine) Specialty Diagnoses / Procedures Referred By Contac t Referred To Contact Diagnoses Left bundle-branch block, unspecified Other cardiomyopathies Left bundle branch block [I44.7]Nonischemic cardiomyopathy [I42.8] Procedures PRG CATH PLMT LEFT HEART CATH & ARTS W/INJ & ANGIO IMG S&I ELECTROPHYSIOLOGY PROCEDURE Lalit Mcmahon MD [facility] [place] [address] [facility] Referral ID Status Reason Start Date Expiration Date Visits Re quested Visits Authorized [id number] 1 1 Encounter Details Date Type Department Care Team (Late st Contact Info) Description 07/23/2022 1:08 PM EDT Anesthesia Event [place] [address] Monae Gonzalez MD [facility] [place] [address] Maria Elena Snyder CRNA [facility] [place] [address] Anesthesia Record Procedure Summary Procedure Name Responsible [...] 1307; median cubital vein (antecubital fossa), right; biny-feb-bvqwgb catheter system; Anatomical Landmarks; 20 gauge; 07/24/22; [...] 1343; metacarpal vein (top of hand), left; jttv-bdr-usfgol catheter system; Anatomical Landmarks; US Not Used; [...] Date: 07/23/22 Room / Location: [facility] A-LAB ROOM 3 / [facility] EP LABS Anesthesia Start: 1308 Anesthesia Stop: 1633 Procedure: ELECTROPHYSIOLOGY PROCEDURE (Left) Diagnosis: Left bundle branch block Nonischemic cardiomyopathy (Left bundle branch block [I44.7]Nonischemic cardiomyopathy [I42.8]) Providers: Lalit Mcmahon MD Responsible Provider: Monae Gonzalez MD Anesthesia Type: general ASA Status: 4 All Anesthesia Providers: Anesthesiologist: Monae Gonzalez MD; Dominique Sen MD WELDER FABRICATOR: Maria Elena Snyder CRNA Vitals Value Taken Time BP 131/46 07/23/22 1700 Temp 36.7 ??C (98.1 ??F) 07/23/22 1627 Pulse 67 07/23/22 1703 Resp 14 07/23/22 1703 SpO2 98 % 07/23/22 1703 Pain Level Vitals shown include unvalidated device data. Patient Location: PACU/[facility] Level of Consciousness: Conscious but Sleepy [...] and Nonischemic CM (EF 15-20%)who presents for OBSTETRICS NURSE PRACTITIONER-D. No prior anesthetic records. Pt states that [...] daughter/son and patient who. Plan discussed with WELDER FABRICATOR. Anesthesia Screening documented in this encounter Plan of Treatment Upcoming Encounters Date Type Department Care Team (Late st Contact Info) Description 01/16/2024 10:00 AM [facility] Hospital Encounter Non-Invasive [place] [address] Arrived documented as of this [...] mg documented in this encounter Care Teams Medical Care Manager Relationship Specialty Start Date End Date Lolly Oliveira MD [address] [place] [address] PCP - General 07/17/13 documented as of this encounter
--- OUTSIDE RECORDS SUMMARY | 2023-10-29 11:14 | XMS_ITS | Encounter Summary ---
Author Organization [facility] [place] [address] Care Team Providers Care Bread Supervisor Name Role Phone Lolly Oliveira MD Primary Care Provider [phone] Encounter Details Date Type Department Care Team (Latest Contact Info) Description 04/21/2023 10:00 AM EST - 04/21/2023 11:59 PM EST Hospital Encounter Non-[place] [address] Discharge Disposition: Home Social History Tobacco Use [...] with spacer fluticasone propionate (Flonase) 50 mcg/actuation [place], Suspension 1 spray by Each Nare route [...] AM EST Hospital Encounter Non-[place] [address] Arrived documented as of this [...] filedocumented in this encounter Care Teams Bread Supervisor Relationship Specialty Start Date End Date Lolly Oliveira MD [address] [place] [address] PCP - General 07/17/13 documented as of this encounter
--- OUTSIDE RECORDS SUMMARY | 2023-10-29 11:14 | XMS_ITS | Encounter Summary ---
Author Organization [facility] [place] [address] Care Team Providers Care Air Vice Marshal Name Role Phone Lolly Oliveira MD Primary Care Provider Encounter Details Date Type Department Care Team (Late st Contact Info) Description 03/17/2023 Telephone Cardiology at [address] [phone] Saranya Ma Social History Tobacco Use Types Packs/Day Years Used Date Smoking Tobacco: Never Alcohol Use Standard Drinks/Week Comments Not Currently 0 (1 standard drink = 0.6 oz pur e alcohol) [facility] Inpatient Questions Answer Date Recorded [...] 9:43 AM EST Echo order faxed to [facility] at [phone]. No Prior auth needed. Ref #:[id number]. Saranya Ma Sr. Clinical Procedure [facility]/Jewelry Model Maker documented in this encounter Plan of Treatment Upcoming Encounters Date Type Department Care Team (Late st Contact Info) Description 01/16/2024 10:00 AM [facility] Hospital Encounter [place] [address] Arrived documented as of this encounter Visit Diagnoses Not on filedocumented in this encounter Care Teams Air Vice Marshal Relationship Specialty Start Date End Date Lolly Oliveira MD [address] [place] [address] PCP - General 07/17/13 documented as of this encounter
--- OUTSIDE RECORDS SUMMARY | 2023-10-29 11:14 | XMS_ITS | Clinical Summary ---
Author Organization [facility] [place] [address] Care Team Providers Care Switchboard Mechanic Name Role Phone Lolly Oliveira MD Primary Care Provider [phone] Allergies Active Allergy Reactions Criticality Noted Date [...] spacer Active fluticasone propionate (Flonase) 50 mcg/actuation [place], Suspension 1 spray by Each Nare route [...] PM EDT Hospital Encounter Non-Invasive [place] [address] Discharge Disposition: Home from Last [...] AM EST Hospital Encounter Non-Invasive [place] [address] Arrived Health Maintenance Due Date Last Done [...] series) 11/07/2023 Medical Devices Implanted Type Area Recovery Rn Device Identifier Shelf Expiration Date Model / Serial / Lot Bsx: [id number]: [id number]/18/2 023 Implanted: by Lalit Mcmahon MD (Quantity not on file) Defibrillator Chest Wall [employer] [id number] / [id number] / Bsx: [id number]: 264869-8/18/2 023 Implanted: by Lalit Mcmahon MD (Quantity not on file) Lead Heart [employer] [id number] / [id number] / Bsx: [id number]: [id number] Implanted: by Lalit Mcmahon MD (Quantity not on file) Lead Heart [employer] [id number] / [id number] / Bsx: [id number]: [id number]/18/2 023 Implanted: by Lalit Mcmahon MD (Quantity not on file) Lead Heart [employer] [id number] / [id number] / Procedures Procedure Name Priority Date/Time Associated [...] Status decision made by: Patient Care Teams Switchboard Mechanic Relationship Specialty Start Date End Date Lolly Oliveira MD [address] [place] [address] PCP - General 07/17/13
--- OUTSIDE RECORDS SUMMARY | 2023-10-29 11:14 | XMS_ITS | Encounter Summary ---
Author Organization [facility] [place] [address] Care Team Providers Care Bog Cutter Name Role Phone Lolly Oliveira MD Primary Care Provider [phone] Encounter Details Date Type Department Care Team (Late st Contact Info) Description 05/18/2023 Refill Dermatology at [address] [address] Nora Meredith LPN Social History [...] patient. She voiced understanding. Order sent to [facility] drug. documented in this encounter Plan of Treatment Upcoming Encounters Date Type Department Care Team (Late st Contact Info) Description 01/16/2024 10:00 AM EST Hospital Encounter Non-[place] [address] Arrived documented as of this encounter Visit Diagnoses Not on filedocumented in this encounter Care Teams Bog Cutter Relationship Specialty Start Date End Date Lolly Oliveira MD [address] [place] [address] PCP - General 07/17/13 documented as of this encounter
--- OUTSIDE RECORDS SUMMARY | 2023-10-29 11:14 | XMS_ITS | Encounter Summary ---
Author Organization [facility] [place] [address] Care Team Providers Care Clinical Data Specialist Name Role Phone Lolly Oliveira MD Primary Care Provider [phone] Encounter Details Date Type Department Care Team (Latest Contact Info) Description 10/18/2023 10:00 AM EDT - 10/18/2023 11:59 PM EDT Hospital Encounter Non-[place] [address] Discharge Disposition: Home Social History Tobacco Use [...] with spacer fluticasone propionate (Flonase) 50 mcg/actuation [place], Suspension 1 spray by Each Nare route daily as needed. documented as of this encounter Plan of Treatment Upcoming Encounters Date Type Department Care Team (Late st Contact Info) Description 01/16/2024 10:00 AM EST Hospital Encounter Non-[place] [address] Arrived documented as of this encounter Procedures [...] filedocumented in this encounter Care Teams Clinical Data Specialist Relationship Specialty Start Date End Date Lolly Oliveira MD [address] [place] [address] PCP - General 07/17/13 documented as of this encounter
--- OUTSIDE RECORDS SUMMARY | 2023-10-29 11:14 | XMS_ITS | Encounter Summary ---
Author Organization [facility] Address [address] [place] [address] Care Team Providers Care Repairing Calibrator Name Role Phone Lolly Oliveira MD Primary Care Provider [phone] Encounter Details Date Type Department Care Team (Late st Contact Info) Description 05/02/2004 Results Only [facility] - [facility] conversion [address] [place] [address] Lolly Oliveira MD [address] [place], [place] [id number] Social History Tobacco Use Types Packs/Day Years [...] 68. [facility] Report Status Final [id number] [facility] 05/02/2004 9:32 EST 05/10/2004 9:32 EST Lolly Oliveira MD MICROBIOLOGY - GENER AL ORDERABLES [facility] [address] [place] [address] * CYTOPATHOLOGY (05/02/2004 0:00 EST) Pathology Report: CYTOPATHOLOGY REPORT Reports generated via electronic interface contain original data; however they are lacking the format of the original report. Caution should be taken when reading/interpreti ng unformatted reports. Name: ? JING ALVARENGA ? Accession #: ? [id number] : ? 1950 (Age: 53) ??F ?Collect [...] Oliveira MD PATHOLOGY ORDERABLES Performing Organization Address City/State/[facility] Co de Phone Number [facility] [address] [place] [address] documented in this encounter Visit Diagnoses Not on filedocumented in this encounter Care Teams Repairing Calibrator Relationship Specialty Start Date End Date Lolly Oliveira MD [address] [place] [address] PCP - General 11/13/08 documented as of this encounter
--- OUTSIDE RECORDS SUMMARY | 2023-10-29 11:14 | XMS_ITS | Clinical Summary ---
Author Organization [facility] Address [address] [place] [address] Care Team Providers Care State Inspector Name Role Phone Lolly Oliveira MD Primary Care Provider [phone] Social History Tobacco Use Types Packs/Day Years [...] COVID-19 Vaccine ( season) 2022 Care Teams State Inspector Relationship Specialty Start Date End Date Lolly Oliveira MD [address] [place], [place] [address] PCP - General 11/13/08
--- OUTSIDE RECORDS SUMMARY | 2023-10-29 11:14 | XMS_ITS | Encounter Summary ---
Author Organization [facility] [place] [address] Care Team Providers Care Non Morse Intercept Technician Name Role Phone Lolly Oliveira MD Primary Care Provider [phone] Encounter Details Date Type Department Care Team (Late st Contact Info) Description 05/18/2023 Telephone Dermatology at [address] [address] Nora Meredith LPN Social History [...] [facility] Hospital Encounter [place] [address] Arrived documented as of this encounter Visit Diagnoses Not on filedocumented in this encounter Care Teams Non Morse Intercept Technician Relationship Specialty Start Date End Date Lolly Oliveira MD [address] [place] [address] PCP - General 07/17/13 documented as of this encounter
--- OUTSIDE RECORDS SUMMARY | 2023-10-29 11:14 | XMS_ITS | Encounter Summary ---
Author Organization [facility] [place] [address] Care Team Providers Care Program Dir Name Role Phone Lolly Oliveira MD Primary Care Provider [phone] Encounter Details Date Type Department Care Team [...] AM EST Hospital Encounter Non-[place] [address] Arrived documented as of this encounter Visit Diagnoses Not on filedocumented in this encounter Care Teams Program Dir Relationship Specialty Start Date End Date Lolly Oliveira MD [address] [place] [address] PCP - General 07/17/13 documented as of this encounter
--- OUTSIDE RECORDS SUMMARY | 2023-10-29 11:14 | XMS_ITS | Encounter Summary ---
Author Organization [facility] Address [facility] [place] [address] Care Team Providers Care Business Banking Manager Name Role Phone Lolly Oliveira MD Primary Care Provider [phone] Encounter Details Date Type Department Care Team (Late st Contact Info) Description 05/03/2023 Telephone Cardiology at [address] [phone] Lalit Mcmahon MD [facility] [place] [address] Social History Tobacco Use Types Packs/Day Years [...] AM EST Hospital Encounter Non-Invasive [place] [address] Arrived documented as of this encounter Visit Diagnoses Not on filedocumented in this encounter Care Teams Business Banking Manager Relationship Specialty Start Date End Date Lolly Oliveira MD [address] [place] [address] PCP - General 07/17/13 documented as of this encounter
--- OUTSIDE RECORDS SUMMARY | 2023-10-29 11:14 | XMS_ITS | Referral Summary ---
Author Organization [facility] Address [address] [place] [address] Care Team Providers Care Telephone Clerk Telegraph Office Name Role Phone Lolly Oliveira MD Primary Care Provider [phone] Social History Tobacco Use Types Packs/Day Years Used Date Smoking Tobacco: Never Assessed Sex and Gender Information Value Date Recorded Sex Assigned at Not on file Gender Identity Not on file Sexual Orientation Not on file Plan of Treatment Not on file Care Teams Telephone Clerk Telegraph Office Relationship Specialty Start Date End Date Lolly Oliveira MD [address] [place] [address] PCP - General 11/13/08
--- OUTSIDE RECORDS SUMMARY | 2023-10-29 11:14 | XMS_ITS | Encounter Summary ---
Author Organization [facility] [address] Care Team Providers Care Military Education Coordinator Name Role Phone Lolly Oliveira MD Primary Care Provider [phone] Encounter Details Date Type Department Care Team (Late st Contact Info) Description 11/16/2022 Telephone Cardiology at [address] [phone] Luna Rousseau, RN Social History Tobacco Use Types Packs/Day Years Used Date Smoking Tobacco: Never Alcohol Use Standard Drinks/Week Comments Not Currently 0 (1 standard drink = 0.6 oz pur e alcohol) [facility] Inpatient Questions Answer Date Recorded Does Anyone [...] BP today was 118/57 at [facility] at [facility]. Pt is going twice a week to [...] st Contact Info) Description 01/16/2024 10:00 AM [facility] Hospital Encounter [place] [address] Arrived documented as of this encounter Visit Diagnoses Not on filedocumented in this encounter Care Teams Military Education Coordinator Relationship Specialty Start Date End Date Lolly Oliveira MD [address] [place] [address] PCP - General 07/17/13 documented as of this encounter
--- OUTSIDE RECORDS SUMMARY | 2023-10-29 11:14 | XMS_ITS | Encounter Summary ---
Author Organization [facility] Address [address] [place] [address] Care Team Providers Care Golf Player Assistant Name Role Phone Lolly Oliveira MD Primary Care Provider [phone] Encounter Details Date Type Department Care Team (Late st Contact Info) Description 04/12/2007 Results Only [facility] [place] conversion [address] [place] [address] Lolly Oliveira MD [address] [place], [place] [id number] Social History Tobacco Use Types Packs/Day Years [...] ? JING ALVARENGA ? Accession #: ? [id number] : ? 1950 (Age: 56) ??F ?Collect Date: ? 04/12/2007 Location: ? [facility] ? Receive Date: ? 04/13/2007 Provider: ?LOLLY OLIVEIRA MD Copy to: ? Specimen/Source: ?ThinPrep Pap Test, Cervix/Endocervix, processed on [employer] ThinPrep Imaging System, with manual evaluation Last [...] Oliveira MD PATHOLOGY ORDERABLES [facility] [address] [place] [address] documented in this encounter Visit Diagnoses Not on filedocumented in this encounter Care Teams Golf Player Assistant Relationship Specialty Start Date End Date Lolly Oliveira MD [address] [place] [address] PCP - General 11/13/08 documented as of this encounter
--- OUTSIDE RECORDS SUMMARY | 2023-10-29 11:14 | XMS_ITS | Encounter Summary ---
Author Organization [facility] [place] [address] Care Team Providers Care Store Hand Name Role Phone Lolly Oliveira MD Primary Care Provider [phone] Encounter Details Date Type Department Care Team (Latest Contact Info) Description 10/23/2022 10:00 AM EDT - 10/23/2022 11:59 PM EDT Hospital Encounter Non-[place]vasive [place] [address] Discharge Disposition: Home Social History Tobacco Use [...] with spacer fluticasone propionate (Flonase) 50 mcg/actuation [place], Suspension 1 spray by Each Nare route [...] st Contact Info) Description 01/16/2024 10:00 AM [facility] Hospital Encounter Non-[place] [address] Arrived documented as of this [...] on filedocumented in this encounter Care Teams Store Hand Relationship Specialty Start Date End Date Lolly Oliveira MD [address] [place] [address] PCP - General 07/17/13 documented as of this encounter
--- OUTSIDE RECORDS SUMMARY | 2023-10-29 11:14 | XMS_ITS | Encounter Summary ---
Author Organization [facility] [place] [address] Care Team Providers Care Senior Patrol Agent Name Role Phone Lolly Oliveira MD Primary Care Provider [phone] Reason for Visit * Reason Onset Date Comments Other 07/24/2022 Implanted Cardia c Device Teaching/Education Encounter Details Date Type Department Care Team (Late st Contact Info) Description 07/24/2022 Notes Only Cardiology at [address] [phone] Letha Arroyo Other (Implanted Cardiac Device Teaching/Education) Social History Tobacco Use Types Packs/Day Years Used Date Smoking Tobacco: Never Alcohol Use Standard Drinks/Week Comments Not Currently 0 (1 standard drink = 0.6 oz pur e alcohol) [facility] Inpatient Questions Answer Date Recorded Does Anyone [...] to call the Cardiac Device Clinic at [phone] with any questions. Plan: Post op check: [...] [facility] Hospital Encounter Non-[place] [address] Arrived documented as of this encounter Visit Diagnoses Not on filedocumented in this encounter Care Teams Senior Patrol Agent Relationship Specialty Start Date End Date Lolly Oliveira MD [address] [place] [address] PCP - General 07/17/13 documented as of this encounter
--- OUTSIDE RECORDS SUMMARY | 2023-10-29 11:14 | XMS_ITS | Encounter Summary ---
Author Organization [facility] Address [address] [place] [address] Care Team Providers Care Floor Layer Name Role Phone Lolly Oliveira MD Primary Care Provider [phone] Encounter Details Date Type Department Care Team (Late st Contact Info) Description 05/29/2002 Results Only [facility] conversion [address] [place] [address] Silvia Diehl, [address] [place] [address] Social History Tobacco Use Types Packs/Day Years [...] ? JING MOTT ? Accession #: ? [id number] : ? 1950 (Age: 51) ??F ?Collect Date: ? 05/29/2002 Location: ? [facility] ? Receive Date: ? 05/31/2002 Provider: ?SILVIA DIEHL FRONT END DEVELOPER DESIGNER Copy to: ? Specimen/Source: ?ThinPrep Pap [...] Report [facility] 05/29/2002 05/31/2002 Silvia Diehl FRONT END DEVELOPER DESIGNER PATHOLOGY ORDERABLES [facility] [address] [place] [address] documented in this encounter Visit Diagnoses Not on filedocumented in this encounter Care Teams Floor Layer Relationship Specialty Start Date End Date Lolly Oliveira MD [address] [place] [address] PCP - General 11/13/08 documented as of this encounter
--- OUTSIDE RECORDS SUMMARY | 2023-10-29 11:14 | XMS_ITS | Encounter Summary ---
Author Organization [place] [address] Care Team Providers Care Practice Physician Name Role Phone Lolly Oliveira MD Primary Care Provider [phone] Encounter Details Date Type Department Care Team (Latest Contact Info) Description 07/20/2023 10:00 AM EDT - 07/20/2023 11:59 PM EDT Hospital Encounter Non-Invasive [place] [address] Discharge Disposition: Home Social History Tobacco Use [...] with spacer fluticasone propionate (Flonase) 50 mcg/actuation [place], Suspension 1 spray by Each Nare route daily as needed. documented as of this encounter Plan of Treatment Upcoming Encounters Date Type Department Care Team (Late st Contact Info) Description 01/16/2024 10:00 AM [facility] Hospital Encounter Non-Invasive [place] [address] Arrived documented as of this encounter Procedures [...] on filedocumented in this encounter Care Teams Practice Physician Relationship Specialty Start Date End Date Lolly Oliveira MD [address] [place] [address] PCP - General 07/17/13 documented as of this encounter
--- OUTSIDE RECORDS SUMMARY | 2023-10-29 11:14 | XMS_ITS | Encounter Summary ---
Author Organization [facility] Address [address] [place] [address] Care Team Providers Care Household Cook Name Role Phone Lolly Oliveira MD Primary Care Provider [phone] Encounter Details Date Type Department Care Team (Late st Contact Info) Description 03/21/2019 Lab Requisition [facility] Pathology & Laboratory Medicine - [address] [address] Unknown, Provider, Social History Tobacco Use Types [...] 211 - 911 pg/mL 03/22/2019 11:[address] [facility] Blood VENOUS BLOOD / Unknown 03/16/2019 9:25 EST 03/21/2019 21:35 EST Provider Unknown CHEMISTRY & BLOOD GA S ORDERABLES [facility] [address] [place] [address] documented in this encounter Visit Diagnoses Not on filedocumented in this encounter Care Teams Household Cook Relationship Specialty Start Date End Date Lolly Oliveira MD [address] [place] [address] PCP - General 11/13/08 documented as of this encounter
--- OUTSIDE RECORDS SUMMARY | 2023-10-29 11:14 | XMS_ITS | Encounter Summary ---
Author Organization [facility] Address [address] [place] [address] Care Team Providers Care School Social Worker Name Role Phone Lolly Oliveira MD Primary Care Provider [phone] Encounter Details Date Type Department Care Team (Late st Contact Info) Description 04/17/2005 Results Only [facility] [place] conversion [address] [place] [address] Lolly Oliveira MD [address] [place], [place] [address] Social History Tobacco Use Types Packs/Day Years [...] ? JING ALVARENGA ? Accession #: ? [id number] : ? 1950 (Age: 54) ??F ?Collect Date: ? 04/17/2005 Location: ? [facility] ? Receive Date: ? 04/21/2005 Provider: ?LOLLY OLIVEIRA MD Copy to: ? Specimen/Source: ?ThinPrep Pap Test, Cervix/Endocervix, processed on [employer] Imaging System, with manual evaluation Last Menstrual [...] Oliveira MD PATHOLOGY ORDERABLES [facility] [address] [place] [address] documented in this encounter Visit Diagnoses Not on filedocumented in this encounter Care Teams School Social Worker Relationship Specialty Start Date End Date Lolly Oliveira MD [address] [place] [address] PCP - General 11/13/08 documented as of this encounter
--- OUTSIDE RECORDS SUMMARY | 2023-10-29 11:14 | XMS_ITS | Encounter Summary ---
Author Organization [facility] Address [address] [place] [address] Care Team Providers Care Assistant Public Defender Name Role Phone Lolly Oliveira MD Primary Care Provider [phone] Encounter Details Date Type Department Care Team (Late st Contact Info) Description 11/13/2020 Lab Requisition [facility] Pathology & Laboratory Medicine - [address] [phone] Outr Resulting Lab, Provider Social History Tobacco [...] Lab MICROBIOLOGY - GENERAL ORDERABLES [facility] [address] [place] [address] * COVID-19 TESTING (11/13/2020 7:30 EDT) COVID-19 rt-PCR Result Negative Negative 11/14/2020 11:46 EDT [facility] Comment: This test has not [...] performed using the med SARS-CoV-2 assay ([employer] on the Med 6800 System Performing Lab Med [address] [facility] Lab 11/14/2020 11:46 EDT [facility] Swab 11/13/2020 7:30 EDT 11/13/2020 20:57 EDT Provider Outr Resulting Lab MICROBIOLOGY - GENERAL ORDERABLES [facility] [address] [place] [address] documented in this encounter Visit Diagnoses Not on filedocumented in this encounter Care Teams Assistant Public Defender Relationship Specialty Start Date End Date Lolly Oliveira MD [address] [place] [address] PCP - General 11/13/08 documented as of this encounter
--- OUTSIDE RECORDS SUMMARY | 2023-10-29 11:14 | XMS_ITS | Encounter Summary ---
Author Organization [facility] Address [address] [place] [address] Care Team Providers Care Automatic Clipper Name Role Phone Lolly Oliveira MD Primary Care Provider [phone] Encounter Details Date Type Department Care Team (Late st Contact Info) Description 02/20/2020 Lab Requisition [facility] Pathology & Laboratory Medicine - [address] [address] Outr Resulting Lab, Provider Social History Tobacco [...] in accordance with CLIA regulations, [employer] [place] [employer] (CAP) guidelines (May 25, 2019), and FDA guidance (May 06, 2019). This test is only for use under the Food and Drug Administration's Emergency Use Authorization. Swab ENTIRE NASOPHARYNX / Unknown 02/19/2020 16:30 EST 02/20/2020 16:09 EST Provider Outr Resulting Lab MICROBIOLOGY - GENERAL ORDERABLES [facility] [place] * COVID-19 TESTING (02/19/2020 16:30 EST) COVID-19 rt-PCR Result NEGATIVE Negative 02/22/2020 23:41 EST [facility] Comment: 2019-novel Coronavirus (2019-nCoV) [...] in accordance with CLIA regulations, [employer] [place] [employer] (CAP) guidelines (May 25, 2019), and FDA guidance (May 06, 2019). This test is only for use under the Food and Drug Administration's Emergency Use Authorization. Performing Lab [facility] 02/22/2020 23:41 EST [facility] Swab 02/19/2020 16:3 0 EST 02/20/2020 16:09 EST Provider Outr Resulting Lab MICROBIOLOGY - GENERAL ORDERABLES [facility] [address] [place] [address] [facility] [place] documented in this encounter Visit Diagnoses Not on filedocumented in this encounter Care Teams Automatic Clipper Relationship Specialty Start Date End Date Lolly Oliveira MD [address] [place] [address] PCP - General 11/13/08 documented as of this encounter
--- OUTSIDE RECORDS SUMMARY | 2023-10-29 11:14 | XMS_ITS | Encounter Summary ---
Author Organization [facility] [place] [address] Care Team Providers Care Early Breastfeeding Care Specialist Name Role Phone Lolly Oliveira MD Primary Care Provider [phone] Encounter Details Date Type Department Care Team (Latest Contact Info) Description 01/21/2023 10:00 AM EST - 01/21/2023 11:59 PM EST Hospital Encounter Non-Invasive [place] [id number] Discharge Disposition: Home Social History Tobacco Use [...] with spacer fluticasone propionate (Flonase) 50 mcg/actuation [place], Suspension 1 spray by Each Nare route [...] AM EST Hospital Encounter Non-Invasive [place] [address] Arrived documented as of this [...] filedocumented in this encounter Care Teams Early Breastfeeding Care Specialist Relationship Specialty Start Date End Date Lolly Oliveira MD [address] [place] [address] PCP - General 07/17/13 documented as of this encounter
--- OUTSIDE RECORDS SUMMARY | 2023-10-29 11:14 | XMS_ITS | Data Portability ---
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 Time None Recorded Concern Status LastModified by Organization Details LastModified Time None Recorded Advance Directives Directive None Recorded Payers Encounter Date Sequence Insurance Name Policy Number Policy Lema Covered Member ID Lema Member ID Guarantor Name 05/21/2023 1 [id number]ANT[place] - [place]PO) [id number] Luna Blandon Tiera [id number] Luna Blandon Tiera 09/01/2023 1 [place] - [place]) [id number] Luna Barber Mott [id number] Luna Mott Notes Date Note Type Note Provider Name and Address Organization Details Recorded Time 05/21/2023 text/html HPI Notes: Thais here today for an annual wellness exam JU CORTEZ MD [address], [place], [address], [facility]. 05/24/2023 18:32:35 09/01/2023 text/html HPI Notes: Luna [...] the name of [address]. [address], [place], [address], [facility]. 09/01/2023 13:55:07 OBGyn Episode No OBEpisode recorded.
--- OUTSIDE RECORDS SUMMARY | 2023-10-29 11:14 | XMS_ITS | Encounter Summary ---
Author Organization [place] [address] Care Team Providers Care Transformer Coil Winder Name Role Phone Lolly Oliveira MD Primary Care Provider [phone] Reason for Visit * Auth/Cert (Routine) Specialty Diagnoses / Procedures Referred By Contac t Referred To Contact Diagnoses Left bundle-branch block, unspecified Other cardiomyopathies Left bundle branch block [I44.7]Nonischemic cardiomyopathy [I42.8] Procedures PRG CATH PLMT LEFT HEART CATH & ARTS W/INJ & ANGIO IMG S&I ELECTROPHYSIOLOGY PROCEDURE Lalit Mcmahon MD [facility] [place] [address] [address] [facility] Referral ID Status Reason Start Date Expiration Date Visits Re quested Visits Authorized [id number] 1 1 Encounter Details Date Type Department Care Team (Late st Contact Info) Description 07/23/2022 1:00 PM EDT - 07/23/2022 5:30 PM EDT Surgery [place] [address] Lalit Mcmahon MD [facility] [place] [address] ELECTROPHYSIOLOGY PROCEDURE Social History Tobacco Use Types Packs/Day Years Used Date Smoking Tobacco: Never Tobacco Cessation:Counseling Given: Not Answered Alcohol Use Standard Drinks/Week Comments Not Currently 0 (1 standard drink = 0.6 oz pur e alcohol) [facility] Inpatient Questions Answer Date Recorded Does Anyone [...] Luna Mott Patient Age: 71 y.o. Language: Occitan Race: White Ethnicity: Not nor Admit date: 07/23/2022 Discharge date and time: 07/24/22 Attending Physician: Lalit Mcmahon MD Discharge Physician: Lalit Mcmahon MD Follow-up Recommendations for Providers: - s/p CONFIGURATION MANAGEMENT ADVISOR-D implant - post implant QRS 130 ms [...] Nevus ??? Solar lentigo Operations/Major Procedures: 07/23/22: [facility] CONFIGURATION MANAGEMENT ADVISOR-D implant History of Presentation: 71 y.o. female with a history of HFrEF, LBBB, QRS >150, NYHA II who is POD#1 of CONFIGURATION MANAGEMENT ADVISOR-D implant ([employer]). Hospital Course: Elective admission for CONFIGURATION MANAGEMENT ADVISOR-D implant Admitted post-implant for pain management, telemetry [...] (heart failure with reduced ejection fraction) [I50.20] CONFIGURATION MANAGEMENT ADVISOR-D implant Admission Condition: good Indication for Admission: [...] g Refills: 3 fluticasone propionate 50 mcg/actuation [place], Suspension Commonly known as: Flonase 1 spray [...] incision. Make sure to use a clothing trades workers (such as a towel) in between the [...] F. The office scheduling phone number is [phone]. ARM MOVEMENT RESTRICTIONS POST-IMPLANT - Do not [...] please call the Cardiac ElectrophysiologyTriage Nurse at [phone], option 3. General Instructions None Discharge References/Attachments [...] incision. Make sure to use a clothing trades workers (such as a towel) in between the [...] F. The office scheduling phone number is [phone]. ARM MOVEMENT RESTRICTIONS POST-IMPLANT - Do not [...] please call the Cardiac ElectrophysiologyTriage Nurse at [phone], option 3. documented in this encounter Medications [...] with spacer fluticasone propionate (Flonase) 50 mcg/actuation [place], Suspension 1 spray by Each Nare route [...] Cardiac Electrophysiology Post-Implant Device Interrogation Luna Mott [id number] 07/24/2022 History: Luna Mott is a 71 y.o. female with a history of HFrEF, LBBB, QRS >150, NYHA II who is POD#1 of CONFIGURATION MANAGEMENT ADVISOR-D implant ([employer]). Overall feels well this morning. Ready [...] WOB Neuro- A&Ox3 Device Interrogation: Data ?? Food Service Worker Model # Serial # Generator [employer] [id number] Atrial Lead [employer] [id number] RV Lead [employer] 0672 [id number] LV Lead [employer] [id number] ?? Diagnostics Pacing Mode: DDD 60-130 Underlying Rhythm: Diamond Atrial Episodes: None Ventricular Episodes: None FINAL PROGRAMMING: Pacing: Mode Lower rate (ppm) Upper rate (ppm) ?? DDD 60 130 VF: Rate (bpm) #Antitachycardia pacing First shock energy (J) ?? 200 Quick convert 41 VT: 170 Monitor only Monitor only ? Battery and Leads Impedances (ohms) Sensing (mV) Thresholds HV RA RV LV RA RV LV RA RV LV 73 350 710 4804 (LVa) 7.7 13.1 >25 0.4V @ 0.4 ms 0.4V @ 0.4 ms 0.5 V @ 1.0 ms POD#1 CXR: All leads in nominal positioning Impression: 71 y.o. female who is s/p CONFIGURATION MANAGEMENT ADVISOR-D implant for LBBB, NYHA II, HFrEF. - [...] [facility]) Fadi Nunez MD 07/24/2022 Pager: [phone] I met with the patient today and [...] agreement. ? Dr. Lalit Mcmahon, electrophysiology attending ([id number]) * Zaria Wright RN - 07/23/2022 8:28 [...] HF, QRS > 150 ms presents for CONFIGURATION MANAGEMENT ADVISOR-D placement. ROS: Denies recent fevers or chills [...] 0.9) flush 5 mL 5 mL Intravenous C31UVyisfLalit ramos MD ??? sodium chloride 0.9 % [...] HF, QRS > 150 ms presents for CONFIGURATION MANAGEMENT ADVISOR-D placement. Backup would be LBBAP lead. Antibiotics: cefazolin Rationales for, intended benefits and potential risk of planned procedures reviewed. The patient indicated understanding and agreement with the plan. Informed consent signed. Procedure checklist completed. Fadi Nunez MD Cardiac Electrophysiology Fellow [facility] Pager [phone] 07/23/2022 I met with the patient today [...] agreement. ? Dr. Lalit Mcmahon, electrophysiology attending ([id number]) documented in this encounter Miscellaneous Notes * Brief Op Note - Lalit Mcmahon MD - 07/23/2022 4:04 PM EDT Brief Operative Note Patient Name: Luna Mott : [id number] MR#: [id number] Case Date: 07/23/2022 Surgeon: Surgeon(s) and Role: [...] AM EST Hospital Encounter [place] [address] Arrived Scheduled Orders Name Type Priority Associated Diagnoses Orde r Schedule EKG 12 Lead ECG Routine Cardiac resynchronization therapy defibrillator (CONFIGURATION MANAGEMENT ADVISOR-D) in place One Time for 1 Occurrences [...] (Bezet) 522 ms MUSE SYSTEM Calculated R [place] 78 degrees MUSE SYSTEM Calculated T [place] -71 degrees MUSE SYSTEM INTERPRETATION AV dual-paced [...] who have questions please contact the health physician assistant primary care that requested your imaging first. ? Narrative [...] patients who have questions please contactthe health physician assistant primary care that requested your imaging first. Lalit Mcmahon MD IMG DX ORDERABLES * ELECTROPHYSIOLOGY PROCEDURE (07/23/2022 1:11 PM EDT) Anatomical Region Laterality Modality Other Narrative 07/23/2022 4:24 PM EDT Table formatting from the original result was not included. BIVENTRICULAR ICD IMPLANTATION Product Steward: Lalit Mcmahon MD Fellow: Fadi Nunez MD [...] lateral branch of the CS in the RWANDAN view. This branch was cannulated with a [...] the entire procedure. LEAD AND GENERATOR DATA: Food Service Worker Model # Serial # Generator [employer] [id number] Atrial Lead [employer] [id number] [id number] RV Lead [employer] 0672 606186 LV Lead [employer] 4674 515009 PACE/SENSE DATA: Sensed wave (mV) Threshold (V) [...] (cGycm2) 300 CONCLUSIONS: Successful implantation of a [employer] biventricular ICD for primary prevention and treatment of symptoms related to congestive heart failure. Follow up in EP clinic in 1-2 months. Procedures performed: new ICD system ( cpt 45229-H1); implant LV lead at time of ICD insertion (cpt 32226) I have read, edited and approve of this report: Lalit Mcmahon MD [facility] Cardiac Electrophysiology 07/23/2022 4:22 PM Procedure Note Lalit Mcmahon MD - 07/23/2022 BIVENTRICULAR ICD IMPLANTATION Product Steward: Lalit Mcmahon MD Fellow: Fadi Nunez MD [...] appropriate lateralbranch of the CS in the RWANDAN view. This branch was cannulated with a [...] in the entireprocedure. LEAD AND GENERATOR DATA: Food Service Worker Model # Serial # Generator [employer] [id number] Atrial Lead [employer] [id number] [id number] RV Lead [employer] 0672 [id number] LV Lead [employer] 4674 088113 PACE/SENSE DATA: Sensed wave (mV) Threshold (V) [...] (cGycm2) 300 CONCLUSIONS: Successful implantation of a [employer] biventricular ICD forprimary prevention and treatment of symptoms related to congestive heartfailure. Follow up in EP clinic in 1-2 months. Procedures performed: new ICD system ( cpt 30648-M9); implant LV lead attime of ICD insertion (cpt 66832) I have read, edited and approve of this report: Lalit Mcmahon MD S Cardiac Electrophysiology 07/23/2022 4:22 PM Lalit Mcmahon MD EP PROCEDURE ORDERAB LES * POCT Glucose (07/23/2022 12:54 PM EDT) [facility] Signature Glucose, POC 83 65 - 199 mg/dL [facility] Comment: Supplemental ranges: <140 mg/dL before meals <180 mg/dL all other times of the day Blood 07/23/2022 12:5 4 PM EDT 07/23/2022 12:54 PM EDT Lalit Mcmahon MD POINT OF CARE TEST O RDERABLES Performing Organization Address City/[facility]/ZIP Co de Phone Number [facility] [place] [address] * EKG 12 Lead (07/23/2022 12:33 PM EDT) Ventricular rate 72 BPM MUSE SYSTEM Atrial Rate 72 BPM MUSE SYSTEM P-R Interval 158 ms MUSE SYSTEM QRS Duration 176 ms MUSE SYSTEM Q-T Interval 458 ms MUSE SYSTEM QTC Calculated (Bezet) 501 ms MUSE SYSTEM Calculated P [place] 34 degrees MUSE SYSTEM Calculated R [place] 12 degrees MUSE SYSTEM Calculated T [place] -173 degrees MUSE SYSTEM INTERPRETATION Normal sinus rhythm Left bundle branch block Abnormal ECG No previous ECGs available Confirmed by MD Salome, Lalit ([id number]) on 07/23/2022 1:19:03 PM MUSE SYSTEM 07/23/2022 12:3 3 PM EDT 07/23/2022 1:19 PM EDT Lalit Mcmahon MD ECG ORDERABLES Performing Organization Address [facility]/ZIP Co de Phone Number MUSE SYSTEM * Differential, Automated (07/23/2022 11:55 AM EDT) Neutrophil % 62.6 % [facility] Neutrophil Absolute 4.14 1.70 - 6.10 x10(3)/[facility] LABORATORY Lymph % 27.0 % [facility] Lymphocytes Abs 1.8 0.9 - 3.2 x10(3)/[facility] LABORATORY Monocyte % 7.3 % [facility] Monocyte Abs 0.5 0.3 - 0.9 x10(3)/[facility] LABORATORY Eos % 2.3 % [facility] Eosinophils Abs 0.2 0.0 - 0.4 x10(3)/[facility] LABORATORY Basophil % 0.6 % [facility] Baso Absolute 0.0 0.0 - 0.1 x10(3)/[facility] LABORATORY Immature Gran % 0.20 % [facility] Comment: Immature granulocytes(IG's)percentage and absolute count will include metamyelocytes, myelocytes, and promyelocytes. Blood smears from CBCs yielding IG's will be scanned manually for concordance. If this scan disagrees with the automated IG or if promyelocytes are noted, a manual differential will be performed. Immature Gran Absolute 0.01 0.00 - 0.04 x10(3)/[facility] LABORATORY Blood 07/23/2022 11:5 5 AM EDT 07/23/2022 12:07 PM EDT Narrative Resulting Agency Comment Spec In Lab Lalit Mcmahon MD HEMATOLOGY ORDERABLE S [facility] [place] [address] * Hemogram (07/23/2022 11:55 AM EDT) White Blood Cell 6.6 4.0 - 9.5 x10(3)/[facility] LABORATORY Red Blood Cell 4.50 4.00 - 5.21 x10(6)/[facility] LAB[facility] Hemoglobin 13.7 11.7 - 15.5 g/dL [facility] Hematocrit 42.5 35.7 - 45.8 % [facility] Mean Cell Volume 94.4 82.6 - 94.4 fL [facility] Mean Cell Hemoglobin 30.4 27.1 - 32.0 pg [facility] Mean Cell Hemoglobin Concentration 32.2 31.7 - 35.0 g/dL [facility] Platelet 193 145 - 357 x10(3)/[facility] LABORATORY RDW Standard Deviation 45.5 37.0 - 46.0 fL [facility] RDW coefficient of variation 13.2 11.5 - 14.1 % [facility] Mean Platelet Volume 9.5 7.6 - 12.9 fL [facility] NRBC% auto 0.0 % [facility] NRBC Absolute 0.000 0.000 - 0.000 x10(3)/[facility] Blood 07/23/2022 11:5 5 AM EDT 07/23/2022 12:07 PM EDT Narrative Resulting Agency Comment Spec In Lab Lalit Mcmahon MD HEMATOLOGY ORDERABLE S [facility] [place] [address] * (ABNORMAL) BMP w/fasting Glucose (07/23/2022 11:55 AM EDT) Glucose Fasting 110(H) 65 - 99 mg/dL [facility] Comment: ?Fasting* Glucose Interpretive Criteria Normal [...] of Diabetes Mellitus, Position Statement from the [place] [employer]. ??Diabetes Care, Volume 33, Supplement 1, Mar 2009 Blood Urea Nitrogen 23(H) 8 - 18 mg/dL [facility] Creatinine 1.07 0.70 - 1.20 mg/dL [facility] Sodium 141 135 - 145 mmol/L [facility] Potassium 4.8 3.5 - 5.0 mmol/L [facility] Comment: Please note: ??Patients with WBC >100,000 may have falsely elevated Potassium levels. ??For accurate Potassium quantification in these patients send serum separator tube (gold top) for subsequent determinations. ??Contact the Clinical Chemistry Laboratory if there are any questions. Chloride 106 98 - 107 mmol/L [facility] Carbon Dioxide 26 22 - 31 mmol/L [facility] Anion Gap 9 5 - 15 mmol/L [facility] Calcium 9.7 8.5 - 10.5 mg/dL [facility] Est Glomerular Filtration Rate 55(L) >=60 mL/min/1. 73 m?? [facility] Comment: This patient's estimated [...] Narrative Resulting Agency Comment Spec In Lab aLlit Mcmahon MD CHEMISTRY ORDERABLES Performing Organization Address [facility] Co de Phone Number [facility] [place] [address] * Prothrombin Time (07/23/2022 11:55 AM EDT) Prothrombin Time 11.7 9.4 - 12.5 sec [facility] International Normalization Ratio 1.0 [facility] Comment: An INR <2.0 indicates adequate [...] MD HEMATOLOGY ORDERABLE S Performing Organization Address City/[facility] Co de Phone Number [facility] [place] [address] documented in this encounter Visit Diagnoses Diagnosis HFrEF (heart failure with reduced ejection fraction)- Primary Left bundle branch block Other left bundle branch block Nonischemic cardiomyopathy Other primary cardiomyopathies Cardiac resynchronization therapy defibrillator (CONFIGURATION MANAGEMENT ADVISOR-D) in place Left bundle branch block Other [...] Until Discontinued, Routine 2006 (Given - Provider: Zarai Wright, XAVI) Continuous Medication Order 07/22/2022 07/23/2022 [...] Routine documented in this encounter Care Teams Transformer Coil Winder Relationship Specialty Start Date End Date Lolly Oliveira MD [address] [place] [address] PCP - General 07/17/13 documented as of this encounter
--- OUTSIDE RECORDS SUMMARY | 2023-10-29 11:14 | XMS_ITS | Encounter Summary ---
Author Organization [facility] Address [facility] [place] [address] Care Team Providers Care Construction Site Crossing Guard Name Role Phone Lolly Oliveira MD Primary Care Provider [phone] Reason for Visit * Auth/Cert (Routine) Specialty Diagnoses / Procedures Referred By Contac t Referred To Contact Diagnoses Left bundle-branch block, unspecified Other cardiomyopathies Left bundle branch block [I44.7]Nonischemic cardiomyopathy [I42.8] Procedures PRG CATH PLMT LEFT HEART CATH & ARTS W/INJ & ANGIO IMG S&I ELECTROPHYSIOLOGY PROCEDURE Lalit Mcmahon MD [facility] [place] [address] [facility] Referral ID Status Reason Start Date Expiration Date Visits Re quested Visits Authorized [id number] 1 1 Encounter Details Date Type Department Care Team (Latest Contact Info) Description 07/23/2022 11:39 AM EDT - 07/24/2022 10:23 AM EDT Hospital [place] [phone] Lalit Mcmahon MD [facility] [place] [address] Left bundle branch block; Nonischemic cardiomyopathy; Cardiac resynchronization therapy defibrillator (CHIEF PHARMACIST-D) in place Discharge Disposition: Home Social History [...] Luna Mott Patient Age: 71 y.o. Language: Czech Race: White Ethnicity: Not nor Admit date: 07/23/2022 Discharge date and time: 07/24/22 Attending Physician: Lalit Mcmahon MD Discharge Physician: Lalit Mcmahon MD Follow-up Recommendations for Providers: - s/p CHIEF PHARMACIST-D implant - post implant QRS 130 ms [...] Nevus ??? Solar lentigo Operations/Major Procedures: 07/23/22: [facility] CHIEF PHARMACIST-D implant History of Presentation: 71 y.o. female with a history of HFrEF, LBBB, QRS >150, NYHA II who is POD#1 of CHIEF PHARMACIST-D implant ([employer]). Hospital Course: Elective admission for CHIEF PHARMACIST-D implant Admitted post-implant for pain management, telemetry [...] (heart failure with reduced ejection fraction) [I50.20] CHIEF PHARMACIST-D implant Admission Condition: good Indication for Admission: [...] g Refills: 3 fluticasone propionate 50 mcg/actuation Geneva, Suspension Commonly known as: Flonase 1 spray [...] the incision. Make sure to use a men's and boys' clothing salesperson (such as a towel) in between the [...] F. The office scheduling phone number is [phone]. ARM MOVEMENT RESTRICTIONS POST-IMPLANT - Do not [...] please call the Cardiac ElectrophysiologyTriage Nurse at [phone], option 3. General Instructions None Discharge References/Attachments None Lalit Mcmahon MD S Cardiac Electrophysiology 07/24/2022 12:33 PM documented in this encounter Discharge Instructions * Patient Instructions* Fadi Nunez MD - 07/24/2022 8:10 AM EDT FINAL ICD/PACEMAKER RECOMMENDATIONS: 1. Standard post implant discharge instructions (see below): 2. Medications as listed above. You may use ice packs over the incision. Make sure to use a men's and boys' clothing salesperson (such as a towel) in between the [...] F. The office scheduling phone number is [phone]. ARM MOVEMENT RESTRICTIONS POST-IMPLANT - Do not [...] please call the Cardiac ElectrophysiologyTriage Nurse at [phone], option 3. documented in this encounter Medications [...] with spacer fluticasone propionate (Flonase) 50 mcg/actuation Geneva, Suspension 1 spray by Each Nare route [...] Cardiac Electrophysiology Post-Implant Device Interrogation Luna Mott [id number] 07/24/2022 History: Luna Mott is a 71 y.o. female with a history of HFrEF, LBBB, QRS >150, NYHA II who is POD#1 of CHIEF PHARMACIST-D implant ([employer]). Overall feels well this morning. Ready [...] WOB Neuro- A&Ox3 Device Interrogation: Data ?? Chemical Process Operator Model # Serial # Generator [employer] [id number] Atrial Lead [employer] [id number] RV Lead [employer] 0672 [id number] LV Lead [employer] [id number] ?? Diagnostics Pacing Mode: DDD 60-130 Underlying Rhythm: [place] Atrial Episodes: None Ventricular Episodes: None FINAL PROGRAMMING: Pacing: Mode Lower rate (ppm) Upper rate (ppm) ?? DDD 60 130 VF: Rate (bpm) #Antitachycardia pacing First shock energy (J) ?? 200 Quick convert 41 VT: 170 Monitor only Monitor only ? Battery and Leads Impedances (ohms) Sensing (mV) Thresholds HV RA RV LV RA RV LV RA RV LV 73 422 [id number] 9947 (LVa) 7.7 13.1 >25 0.4V @ 0.4 ms 0.4V @ 0.4 ms 0.5 V @ 1.0 ms POD#1 CXR: All leads in nominal positioning Impression: 71 y.o. female who is s/p CHIEF PHARMACIST-D implant for LBBB, NYHA II, HFrEF. - [...] [facility]) Fadi Nunez MD 07/24/2022 Pager: [phone] I met with the patient today and [...] agreement. ? Dr. Lalit Mcmahon, electrophysiology attending ([id number]) * Zaria Wright RN - 07/23/2022 8:28 [...] HF, QRS > 150 ms presents for CHIEF PHARMACIST-D placement. ROS: Denies recent fevers or chills [...] 0.9) flush 5 mL 5 mL Intravenous [id number] ramos MD ??? sodium chloride 0.9 % [...] HF, QRS > 150 ms presents for CHIEF PHARMACIST-D placement. Backup would be LBBAP lead. Antibiotics: cefazolin Rationales for, intended benefits and potential risk of planned procedures reviewed. The patient indicated understanding and agreement with the plan. Informed consent signed. Procedure checklist completed. Fadi Nunez MD Cardiac Electrophysiology Fellow [facility] Pager [phone] 07/23/2022 I met with the patient today [...] agreement. ? Dr. Lalit Mcmahon, electrophysiology attending ([id number]) documented in this encounter Miscellaneous Notes * Brief Op Note - Lalit Mcmahon MD - 07/23/2022 4:04 PM EDT Brief Operative Note Patient Name: Luna Mott : [id number] MR#: [id number] Case Date: 07/23/2022 Surgeon: Surgeon(s) and Role: [...] AM EST Hospital Encounter Non[place] [address] Arrived Scheduled Orders Name Type Priority Associated Diagnoses Orde r Schedule EKG 12 Lead ECG Routine Cardiac resynchronization therapy defibrillator (CHIEF PHARMACIST-D) in place One Time for 1 Occurrences [...] (Bezet) 522 ms MUSE SYSTEM Calculated R Zuni 78 degrees MUSE SYSTEM Calculated T Zuni -71 degrees MUSE SYSTEM INTERPRETATION AV dual-paced [...] who have questions please contact the health skin care instructor that requested your imaging first. ? Electronically signed by: Kwame Vargas MD, [facility] ([phone]), at 07/24/2022 6:43 AM Narrative 07/24/2022 6:43 [...] patients who have questions please contactthe health skin care instructor that requested your imaging first. Electronically signed by: Kwame Vargas MD, [facility]([phone]), at 07/24/2022 6:43 AM Lalit Mcmahon MD IMG DX ORDERABLES * ELECTROPHYSIOLOGY PROCEDURE (07/23/2022 1:11 PM EDT) Anatomical Region Laterality Modality Other Narrative 07/23/2022 4:24 PM EDT Table formatting from the original result was not included. BIVENTRICULAR ICD IMPLANTATION Transition Teacher: Lalit Mcmahon MD Fellow: Fadi Nunez MD [...] lateral branch of the CS in the SLOVENIAN view. This branch was cannulated with a [...] the entire procedure. LEAD AND GENERATOR DATA: Chemical Process Operator Model # Serial # Generator [employer] [id number] Atrial Lead [employer] [id number] RV Lead [employer] 0672 [id number] LV Lead [employer] [id number] PACE/SENSE DATA: Sensed wave (mV) Threshold (V) [...] (cGycm2) 300 CONCLUSIONS: Successful implantation of a [employer] biventricular ICD for primary prevention and treatment of symptoms related to congestive heart failure. Follow up in EP clinic in 1-2 months. Procedures performed: new ICD system ( cpt 71149-Z3); implant LV lead at time of ICD insertion (cpt 34023) I have read, edited and approve of this report: Lalit Mcmahon MD S Cardiac Electrophysiology 07/23/2022 4:22 PM Procedure Note Lalit Mcmahon MD - 07/23/2022 BIVENTRICULAR ICD IMPLANTATION Transition Teacher: Lalit Mcmahon MD Fellow: Fadi Nunez MD [...] appropriate lateralbranch of the CS in the SLOVENIAN view. This branch was cannulated with a [...] in the entireprocedure. LEAD AND GENERATOR DATA: Chemical Process Operator Model # Serial # Generator [employer] [id number] Atrial Lead [employer] [id number] [id number] RV Lead [employer] 0672 [id number] LV Lead [employer] [id number] [id number] PACE/SENSE DATA: Sensed wave (mV) Threshold (V) [...] (cGycm2) 300 CONCLUSIONS: Successful implantation of a [employer] biventricular ICD forprimary prevention and treatment of symptoms related to congestive heartfailure. Follow up in EP clinic in 1-2 months. Procedures performed: new ICD system ( cpt 43046-T4); implant LV lead attime of ICD insertion (cpt 60714) I have read, edited and approve of this report: Lalit Mcmahon MD [facility] Cardiac Electrophysiology 07/23/2022 4:22 PM Lalit Mcmahon MD EP PROCEDURE ORDERAB LES * POCT Glucose (07/23/2022 12:54 PM EDT) Glucose, POC 83 65 - 199 mg/dL [facility] Comment: Supplemental ranges: <140 mg/dL before meals <180 mg/dL all other times of the day Blood 07/23/2022 12:5 4 PM EDT 07/23/2022 12:54 PM EDT Lalit Mcmahon MD POINT OF CARE TEST O RDERABLES Performing Organization Address [facility] Co de Phone Number [facility] [place] [address] * EKG 12 Lead (07/23/2022 12:33 PM EDT) Ventricular rate 72 BPM MUSE SYSTEM Atrial Rate 72 BPM MUSE SYSTEM P-R Interval 158 ms MUSE SYSTEM QRS Duration 176 ms MUSE SYSTEM Q-T Interval 458 ms MUSE SYSTEM QTC Calculated (Bezet) 501 ms MUSE SYSTEM Calculated P Zuni 34 degrees MUSE SYSTEM Calculated R Zuni 12 degrees MUSE SYSTEM Calculated T Zuni -173 degrees MUSE SYSTEM INTERPRETATION Normal sinus rhythm Left bundle branch block Abnormal ECG No previous ECGs available Confirmed by MD Salome, Lalit ([id number]) on 07/23/2022 1:19:03 PM MUSE SYSTEM 07/23/2022 12:3 3 PM EDT 07/23/2022 1:19 PM EDT Lalit Mcmahon MD ECG ORDERABLES Performing Organization Address [facility] de Phone Number MUSE SYSTEM * Differential, Automated (07/23/2022 11:55 AM EDT) Neutrophil % 62.6 % [facility] Neutrophil Absolute 4.14 1.70 - 6.10 x10(3)/[facility] LAB[facility]AT[facility] Lymph % 27.0 % [facility] Lymphocytes Abs 1.8 0.9 - 3.2 x10(3)/[facility] LABOR[facility] Monocyte % 7.3 % [facility] Monocyte Abs 0.5 0.3 - 0.9 x10(3)/[facility] LABORATORY Eos % 2.3 % [facility] Eosinophils Abs 0.2 0.0 - 0.4 x10(3)/[facility] LABORATORY Basophil % 0.6 % [facility] ITAL LABORATORY Baso Absolute 0.0 0.0 - 0.1 x10(3)/[facility] LAB[facility]ATORY Immature Gran % 0.20 % [facility] Comment: Immature granulocytes(IG's)percentage and absolute count will include metamyelocytes, myelocytes, and promyelocytes. Blood smears from CBCs yielding IG's will be scanned manually for concordance. If this scan disagrees with the automated IG or if promyelocytes are noted, a manual differential will be performed. Immature Gran Absolute 0.01 0.00 - 0.04 x10(3)/[facility] Blood 07/23/2022 11:5 5 AM EDT 07/23/2022 12:07 PM EDT Narrative Resulting Agency Comment Spec In Lab Lalit Mcmhaon MD HEMATOLOGY ORDERABLE S [facility] [place] [address] * Hemogram (07/23/2022 11:55 AM EDT) White Blood Cell 6.6 4.0 - 9.5 x10(3)/[facility] Red Blood Cell 4.50 4.00 - 5.21 x10(6)/[facility] Hemoglobin 13.7 11.7 - 15.5 g/dL [facility] Hematocrit 42.5 35.7 - 45.8 % [facility] Mean Cell Volume 94.4 82.6 - 94.4 fL [facility] Mean Cell Hemoglobin 30.4 27.1 - 32.0 pg [facility] Mean Cell Hemoglobin Concentration 32.2 31.7 - 35.0 g/dL [facility] Platelet 193 145 - 357 x10(3)/[facility] RDW Standard Deviation 45.5 37.0 - 46.0 fL [facility] RDW coefficient of variation 13.2 11.5 - 14.1 % [facility] Mean Platelet Volume 9.5 7.6 - 12.9 fL [facility] NRBC% auto 0.0 % [facility] NRBC Absolute 0.000 0.000 - 0.000 x10(3)/mcL [facility] Blood 07/23/2022 11:5 5 AM EDT 07/23/2022 12:07 PM EDT Narrative Resulting Agency Comment Spec In Lab Lalit Mcmahon MD HEMATOLOGY ORDERABLE S [facility] [address] [place] [address] * (ABNORMAL) BMP w/fasting Glucose (07/23/2022 11:55 AM EDT) Glucose Fasting 110(H) 65 - 99 mg/dL [facility] Comment: ?Fasting* Glucose Interpretive Criteria [...] of Diabetes Mellitus, Position Statement from the [place] [employer]. ??Diabetes Care, Volume 33, Supplement 1, Mar 2009 Blood Urea Nitrogen 23(H) 8 - 18 mg/dL [facility] Creatinine 1.07 0.70 - 1.20 mg/dL [facility] Sodium 141 135 - 145 mmol/L [facility] Potassium 4.8 3.5 - 5.0 mmol/L [facility] Comment: Please note: ??Patients with WBC >100,000 may have falsely elevated Potassium levels. ??For accurate Potassium quantification in these patients send serum separator tube (gold top) for subsequent determinations. ??Contact the Clinical Chemistry Laboratory if there are any questions. Chloride 106 98 - 107 mmol/L [facility] Carbon Dioxide 26 22 - 31 mmol/L [facility] Anion Gap 9 5 - 15 mmol/L [facility] Calcium 9.7 8.5 - 10.5 mg/dL [facility] Est Glomerular Filtration Rate 55(L) >=60 mL/min/1. 73 m?? [facility] Comment: This patient's estimated GFR [...] Mcmahon MD CHEMISTRY ORDERABLES Performing Organization Address [facility] Co de Phone Number [facility] [place] [address] * Prothrombin Time (07/23/2022 11:55 AM EDT) Prothrombin Time 11.7 9.4 - 12.5 sec [facility] International Normalization Ratio 1.0 [facility] Comment: An INR <2.0 indicates [...] MD HEMATOLOGY ORDERABLE S Performing Organization Address City/[facility] Co de Phone Number [facility] [place] [address] documented in this encounter Visit Diagnoses Diagnosis HFrEF (heart failure with reduced ejection fraction)- Primary Left bundle branch block Other left bundle branch block Nonischemic cardiomyopathy Other primary cardiomyopathies Cardiac resynchronization therapy defibrillator (CHIEF PHARMACIST-D) in place Left bundle branch block Other [...] Routine documented in this encounter Care Teams Construction Site Crossing Guard Relationship Specialty Start Date End Date Lolly Oliveira MD [address] [place] [address] PCP - General 07/17/13 documented as of this encounter
--- OUTSIDE RECORDS SUMMARY | 2023-10-29 11:14 | XMS_ITS | Encounter Summary ---
Author Organization [facility] Address [facility] [place] [address] Care Team Providers Care Card Grinder Helper Name Role Phone Lolly Oliveira MD Primary Care Provider [phone] Encounter Details Date Type Department Care Team (Late st Contact Info) Description 11/11/2022 Orders Only Cardiology at [address] [phone] Lalit Mcmahon MD [facility] [place] [address] Nonischemic cardiomyopathy Social History Tobacco Use Types Packs/Day Years Used Date Smoking Tobacco: Never Alcohol Use Standard Drinks/Week Comments Not Currently 0 (1 standard drink = 0.6 oz pur e alcohol) [facility] Inpatient Questions Answer Date Recorded Does Anyone [...] [facility] Hospital Encounter Non-Invasive [place] [phone] Arrived documented as of this encounter Visit Diagnoses Diagnosis Nonischemic cardiomyopathy Other primary cardiomyopathies documented in this encounter Care Teams Card Grinder Helper Relationship Specialty Start Date End Date Berrian, Lolly M, MD [address] [place] [address] PCP - General 07/17/13 documented as of this encounter
--- OUTSIDE RECORDS SUMMARY | 2023-10-29 11:14 | XMS_ITS | Encounter Summary ---
Author Organization [facility] Address [place] [address] Care Team Providers Care Rustic Fence Builder Name Role Phone Lolly Oliveira MD Primary Care Provider [phone] Encounter Details Date Type Department Care Team (Late st Contact Info) Description 01/29/2023 Notes Only Cardiology at [address] [address] Merle Lin PA [facility] [place] [address] Social History Tobacco Use Types Packs/Day Years Used Date Smoking Tobacco: Never Alcohol Use Standard Drinks/Week Comments Not Currently 0 (1 standard drink = 0.6 oz pur e alcohol) [facility] Inpatient Questions Answer Date Recorded Does Anyone [...] pdf document Date of transmission: 01/29/2023 Device agile test lead: BSI Device type: OCCUPATIONAL THERAPY INSTRUCTOR-D Presenting rhythm: /RVP/LVP AP 21% Right FOURTH GRADE TEACHER 100% Left FOURTH GRADE TEACHER: 100% Battery: 10.5 years Heart[employer] Index rising in setting of increasing S3 intensity, increasing respiratory rate, increasing night heart rate, and increasing mean heart rate. MICKEY Villa 01/29/2023 9:06 AM documented in this encounter Plan of Treatment Upcoming Encounters Date Type Department Care Team (Late st Contact Info) Description 01/16/2024 10:00 AM EST Hospital Encounter Non-In[place] [address] Arrived documented as of this encounter Visit Diagnoses Not on filedocumented in this encounter Care Teams Rustic Fence Builder Relationship Specialty Start Date End Date Lolly Oliveira MD [address] [place] [address] PCP - General 07/17/13 documented as of this encounter
--- OUTSIDE RECORDS SUMMARY | 2023-10-29 11:14 | XMS_ITS | Encounter Summary ---
Author Organization [facility] [place] [address] Care Team Providers Care Catalytic Converter Operator Helper Name Role Phone Lolly Oliveira MD Primary Care Provider [phone] Reason for Visit * Reason Comments Follow-up 8 weeks UVB treatmen t twice weekly Encounter Details Date Type Department Care Team (Late st Contact Info) Description 07/19/2023 11:00 AM EDT Office Visit Dermatology at [address] [phone] Clay Ramírez MD [address], ERIKA A DERMATOLOGY [place], [place] [phone] Psoriasis Social History Tobacco Use Types Packs/Day [...] [facility] Hospital Encounter Non-Invasive [place] [address] Arrived documented as of this encounter Visit Diagnoses Diagnosis Psoriasis Other psoriasis documented in this encounter Care Teams Catalytic Converter Operator Helper Relationship Specialty Start Date End Date Lolly Oliveira MD [address] [place] [address] PCP - General 07/17/13 documented as of this encounter
--- OUTSIDE RECORDS SUMMARY | 2023-10-29 11:14 | XMS_ITS | Encounter Summary ---
Author Organization [facility] Address [address] [place] [address] Care Team Providers Care Molding Sander Name Role Phone Lolly Oliveira MD Primary Care Provider [phone] Encounter Details Date Type Department Care Team (Late st Contact Info) Description 05/27/2021 Lab Requisition [facility] Pathology & Laboratory Medicine - [address] [address] Iman Moran, DO [address] [place], [place] [id number] Encounter for other general examination Social History [...] management options, if applicable. 05/30/2021 13:31 EDT [facility] Final Diagnosis A. COLON, [...] A1. MICKEY CARLOS(ASCP) 05/27/2021 19:11 05/30/2021 13:31 [facility] Performing Lab [facility] 05/30/2021 13:31 [facility] Scanned Images 05/30/2021 13:31 [facility] Tissue ENTIRE COLON / Unknown 05/27/2021 11:23 EDT 05/27/2021 16:33 EDT Iman Moran DO PATHOLOGY ORDERABLES [facility] [address] [place] [address] documented in this encounter Visit Diagnoses Diagnosis Encounter for other general examination documented in this encounter Care Teams Molding Sander Relationship Specialty Start Date End Date Lolly Oliveira MD [address] [place] [address] PCP - General 11/13/08 documented as of this encounter
--- OUTSIDE RECORDS SUMMARY | 2023-10-29 11:14 | XMS_ITS | Encounter Summary ---
Author Organization [facility] Address [address] [place] [address] Care Team Providers Care Paint Preparer Name Role Phone Lolly Oliveira MD Primary Care Provider [phone] Encounter Details Date Type Department Care Team (Late st Contact Info) Description 04/25/2009 Orders Only [facility] Laboratory Services - [facility] [address] [place], [place] [phone] Lolly Oliveira MD [address] [place], [place] [id number] Social History Tobacco Use Types Packs/Day Years [...] ? JING ALVARENGA ? Accession #: ? [id number] ? : ? 1950 (Age: 58) ??F [...] reviewed and electronically signed by: ? Helena [place], [place](ASCP) ? Report Date: ??04/29/2009 10:38 ? End of Report ? TOVA BLANCO 04/25/2009 04/26/2009 Lolly Oliveira MD PATHOLOGY ORDERABLES [facility] [address] [place] [address] documented in this encounter Visit Diagnoses Not on filedocumented in this encounter Care Teams Paint Preparer Relationship Specialty Start Date End Date Lolly Oliveira MD [address] [place] [address] PCP - General 11/13/08 documented as of this encounter
--- OUTSIDE RECORDS SUMMARY | 2023-10-29 11:15 | XMS_ITS | Encounter Summary ---
[place] [address] Care Team Providers Care Info Analyst Name Role Phone Lolly Oliveira MD Primary Care Provider [phone] Encounter Details Date Type Department Care Team (Late st Contact Info) Description 04/09/2022 Refill Dermatology at [address] [phone] Nora Meredith, NETWORK CONTROL TECHNICIAN Social History Tobacco Use Types Packs/Day Years [...] [facility] Hospital Encounter [place] [address] Arrived documented as of this encounter Visit Diagnoses Not on filedocumented in this encounter Care Teams Info Analyst Relationship Specialty Start Date End Date Lolly Oliveira MD [address] [place] [address] PCP - General 07/17/13 documented as of this encounter
--- OUTSIDE RECORDS SUMMARY | 2023-10-29 11:15 | XMS_ITS | Encounter Summary ---
Author Organization [facility] [place] [address] Care Team Providers Care Furnace Mechanic Name Role Phone Lolly Oliveira MD Primary Care Provider Encounter Details Date Type Department Care Team (Late st Contact Info) Description 07/26/2013 [place] [phone] Eleno Christian MD [facility] DIAGNOSTIC [place] [address] Social History Tobacco Use Types Packs/Day Years [...] AM EST Hospital Encounter Non-Invasive [place] [address] Arrived documented as of this encounter Visit Diagnoses Not on filedocumented in this encounter Care Teams Furnace Mechanic Relationship Specialty Start Date End Date Lolly Oliveira MD [address] [place] [address] PCP - General 07/17/13 documented as of this encounter
--- OUTSIDE RECORDS SUMMARY | 2023-10-29 11:15 | XMS_ITS | Encounter Summary ---
[place] [address] Care Team Providers Care Administrative Law Judge Name Role Phone Lolly Oliveira MD Primary Care Provider [phone] Encounter Details Date Type Department Care Team (Latest Contact Info) Description 07/26/2013 9:45 AM EDT - 07/26/2013 11:59 PM EDT Hospital En[place] [address] Mammographic microcalcification Social History Tobacco Use Types [...] AM EST Hospital Encounter [place] [address] Arrived documented as of this encounter Procedures Procedure Name Priority Date/Time Associated Diagnosis Comments SURGICAL PATHOLOGY REPORT Routine 07/26/2013 12:12 PM EDT MAMMO SPECIMEN IMAGING DURING BIOPSY Routine 07/26/2013 11:58 AM EDT Mammographic microcalcification documented in this encounter Results * Surgical Pathology Report (07/26/2013 12:12 PM EDT) Final Diagnosis ? [facility] ? Provider: ?? ELENO CHRISTIAN ?? Pt. Name: ?? JING ALVARENGA ? Acc #: ?[id number] ?Pt. ? Col Date: ?? 07/26/2013 ? [...] Partially fragmented, fibrofatty needle core biopsies. ? [facility] ? Provider: ?? ELENO CHRISTIAN ?? Pt. Name: ?? JING ALVARENGA ? Acc #: ?[id number] ?Pt. ? Col Date: ?? 07/26/2013 ? [...] FCD, adenosis, DCIS 07/28/2013 8:29 AM EDT [facility] BREAST STRUCTURE / Unknown 07/26/2013 12:12 PM EDT 07/26/2013 12:12 PM EDT Eleno Christian MD PATHOLOGY/CYTOLOGY O RDERABLES Performing Organization Address City/State/[facility] Co ut Phone Number [facility] [place] [address] * Mammo Specimen Imaging During Biopsy (07/26/2013 [...] microcalcification documented in this encounter Care Teams Administrative Law Judge Relationship Specialty Start Date End Date Lolly Oliveira MD [address] [place] [address] PCP - General 07/17/13 documented as of this encounter
--- OUTSIDE RECORDS SUMMARY | 2023-10-29 11:15 | XMS_ITS | Encounter Summary ---
[place] [address] Care Team Providers Care Nissan Sales Consultant Name Role Phone Lolly Oliveira MD Primary Care Provider [phone] Encounter Details Date Type Department Care Team [...] AM EST Hospital Encounter Non-[place] [address] Arrived documented as of this encounter Visit Diagnoses Not on filedocumented in this encounter Care Teams Nissan Sales Consultant Relationship Specialty Start Date End Date Lolly Oliveira MD [address] [place] [address] PCP - General 07/17/13 documented as of this encounter
--- OUTSIDE RECORDS SUMMARY | 2023-10-29 11:15 | XMS_ITS | Encounter Summary ---
Author Organization [facility] [place] [address] Care Team Providers Care Presales Consultant Name Role Phone Lolly Oliveira MD Primary Care Provider [phone] Reason for Visit * Reason Comments Follow-up Encounter Details Date Type Department Care Team (Late st Contact Info) Description 06/06/2021 8:45 AM EDT Office Visit Dermatology at [address] [address] Clay Ramírez MD [address] [facility], [place] [address] Psoriasis, guttate Social History Tobacco Use Types [...] st Contact Info) Description 01/16/2024 10:00 AM [facility] Hospital Encounter Non-[place] [address] Arrived documented as of this encounter Visit Diagnoses Diagnosis Psoriasis, guttate Other psoriasis documented in this encounter Care Teams Presales Consultant Relationship Specialty Start Date End Date Lolly Oliveira MD [address] [place] [address] PCP - General 07/17/13 documented as of this encounter
--- OUTSIDE RECORDS SUMMARY | 2023-10-29 11:15 | XMS_ITS | Encounter Summary ---
Author Organization [place] [address] Care Team Providers Care Cafe Lead Name Role Phone Lolly Oliveira MD Primary Care Provider [phone] Reason for Visit * Reason Comments Skin Check Encounter Details Date Type Department Care Team (Late st Contact Info) Description 11/23/2014 10:00 AM EDT Office Visit Dermatology at [address] [phone] Clay Ramírez MD [address] [facility], [place] [address] Dermatofibroma; Nevus; Solar lentigo Discharge Disposition: Home [...] [facility] CLIN[facility] Hospital Encounter Non-[place] [address] Arrived documented as of this encounter Visit Diagnoses Diagnosis Dermatofibroma Benign neoplasm of skin, site unspecified Nevus Benign neoplasm of skin, site unspecified Solar lentigo Other dyschromia documented in this encounter Care Teams Cafe Lead Relationship Specialty Start Date End Date Lolly Oliveira MD [address] [place] [address] PCP - General 07/17/13 documented as of this encounter
--- OUTSIDE RECORDS SUMMARY | 2023-10-29 11:15 | XMS_ITS | Encounter Summary ---
Author Organization [facility] [place] [address] Care Team Providers Care Oyster Floater Name Role Phone Lolly Oliveira MD Primary Care Provider [phone] Encounter Details Date Type Department Care Team (Late st Contact Info) Description 04/01/2021 3:30 PM EST Office Visit Dermatology at [address] [phone] Clay Ramírez MD [address], [place] [address] Psoriasis, guttate Social History Tobacco Use Types [...] today by Elena Raymond NP and Lolly Olievira MD. apparently in December she developed a [...] EST Hospital Encounter Non-Invasive [place] [address] Arrived documented as of this encounter Visit Diagnoses Diagnosis Psoriasis, guttate Other psoriasis documented in this encounter Care Teams Oyster Floater Relationship Specialty Start Date End Date Lolly Oliveira MD [address] [place] [address] PCP - General 07/17/13 documented as of this encounter
--- OUTSIDE RECORDS SUMMARY | 2023-10-29 11:15 | XMS_ITS | Encounter Summary ---
Author Organization [facility] [place] [address] Care Team Providers Care German Teacher Name Role Phone Unavailable Primary Care Provider Unavailabl e Encounter Details Date Type Department Care Team (Late st Contact Info) Description 07/14/2013 External Results XRay at [address] [place] [address] Provider, Scanning Social History Tobacco Use Types [...] AM EST Hospital Encounter Non-Invasive Cardiology Lab [facility] [place] [address] Arrived documented as of this encounter Procedures [...]
--- OUTSIDE RECORDS SUMMARY | 2023-10-29 11:15 | XMS_ITS | Encounter Summary ---
Author Organization [facility] [place] [address] Care Team Providers Care Supervisor Fabrication Department Name Role Phone Lolly Oliveira MD Primary Care Provider [phone] Reason for Visit * Reason Comments Follow-up Encounter Details Date Type Department Care Team (Late st Contact Info) Description 07/02/2022 8:00 AM EDT Office Visit Dermatology at [address] [phone] Clay Ramírez MD [address] [facility] [place] [address] Psoriasis, guttate Social History Tobacco Use Types [...] st Contact Info) Description 01/16/2024 10:00 AM [facility] Hospital Encounter Non-Invasive Cardiology [place] [address] Arrived documented as of this encounter Visit Diagnoses Diagnosis Psoriasis, guttate Other psoriasis documented in this encounter Care Teams Supervisor Fabrication Department Relationship Specialty Start Date End Date Lolly Oliveira MD [address] [place] [address] PCP - General 07/17/13 documented as of this encounter
--- OUTSIDE RECORDS SUMMARY | 2023-10-29 11:15 | XMS_ITS | Encounter Summary ---
Author Organization [facility] [place] [address] Care Team Providers Care Salicylic Acid Blender Name Role Phone Lolly Oliveira MD Primary Care Provider [phone] Encounter Details Date Type Department Care Team (Latest Contact Info) Description 07/26/2013 9:45 AM EDT - 07/26/2013 11:59 PM EDT Hospital [place] [address] Mammographic microcalcification Social History Tobacco Use Types [...] AM EST Hospital Encounter Non[place] [address] Arrived documented as of this encounter Procedures [...] microcalcification documented in this encounter Care Teams Salicylic Acid Blender Relationship Specialty Start Date End Date Lolly Oliveira MD [address] [place] [address] PCP - General 07/17/13 documented as of this encounter
--- OUTSIDE RECORDS SUMMARY | 2023-10-29 11:15 | XMS_ITS | Encounter Summary ---
Author Organization [facility] Address [facility] [place] [address] Care Team Providers Care Oil Pipeline Dispatcher Name Role Phone Lolly Oliveira MD Primary Care Provider [phone] Encounter Details Date Type Department Care Team (Late st Contact Info) Description 07/16/2022 Telephone Cardiology at [address] [phone] Lalit Mcmahon MD [facility] [place] [address] Social History Tobacco Use Types Packs/Day Years [...] her nonischemic cardiomyopathy. She is scheduled for MATHEMATICAL TECHNICIAN-D implantation next week and looks forward to the procedure. We will see each other next week. Lalit Mcmahon MD [facility] Cardiac Electrophysiology 07/16/2022 8:52 AM documented in this encounter Plan of Treatment Upcoming Encounters Date Type Department Care Team (Late st Contact Info) Description 01/16/2024 10:00 AM EST Hospital Encounter Non-[place] [address] Arrived documented as of this encounter Visit Diagnoses Not on filedocumented in this encounter Care Teams Oil Pipeline Dispatcher Relationship Specialty Start Date End Date Lolly Oliveira MD [address] [place] [address] PCP - General 07/17/13 documented as of this encounter
--- OUTSIDE RECORDS SUMMARY | 2023-10-29 11:15 | XMS_ITS | Encounter Summary ---
Author Organization [facility] [place] [address] Care Team Providers Care Electro Optical Engineer Name Role Phone Lolly Oliveria MD Primary Care Provider [phone] Reason for Referral * Diagnostic Test (Routine) - Closed Specialty Diagnoses / Procedures Referred By Contac t Referred To Contact Radiology Diagnoses Left bundle branch block Nonischemic cardiomyopathy Procedures MRI Cardiac Morphology Function With Flow Velocity Quantification [facility] Contrast MRI Cardiac Morphology Function wwo Contrast Lalit Mcmahon MD [facility] [place] [address] [place] [address] Referral ID Status Reason Start Date Expiration Date V isits Requested Visits Authorized [id number] Closed Specialty Service Requested 05/06/2022 11/07/2023 2 1 Reason for Visit * Diagnostic Test (Routine) - Closed Specialty Diagnoses / Procedures Referred By Contac t Referred To Contact Radiology Diagnoses Left bundle branch block Nonischemic cardiomyopathy Procedures MRI Cardiac Morphology Function With Flow Velocity Quantification o Contrast MRI Cardiac Morphology Function wwo Contrast Lalit Mcmahon MD [facility] [place] [address] [place] [address] Referral ID Status Reason Start Date Expiration Date V isits Requested Visits Authorized [id number] Closed Specialty Service Requested 05/06/2022 11/07/2023 2 1 Encounter Details Date Type Department Care Team (Latest Contact Info) Description 07/14/2022 9:08 AM EDT Hospital Encounter MRI at [facility] [place] [phone] Lalit Mcmahon MD [facility] [place] [address] Left bundle branch block; Nonischemic cardiomyopathy Discharge [...] with spacer fluticasone propionate (Flonase) 50 mcg/actuation [place], Suspension 1 spray by Each Nare route [...] 71 y.o. : 1950 [address] [facility] [address] Female [phone] (home) No relevant phone numbers on file. Lolly Oliveira MD None Allergies Allergen Reactions ??? Sulfa (Sulfonamide Antibiotics) Date/Time of call: July 07, 2022/11:03 AM/ PREVIOUS MRI SCAN? HEIGHT: WEIGHT: SCHEDULED SCAN: MRI CARDIAC MORPHOLOGY FUNCTION WITH FLOW VELOCITY QUANTIFICATION WWO CONTRAST [[id number]] Order Questions Answers Where will study be performed? [facility] Radiology [120] SUBJECTIVE: Very Claustrophobic CAN YOU [...] ( K[place] ) You must have a hammer driver present when you check in. This patient has been informed that they require a hammer driver to drive them home after this procedure. In the absence of a hammer driver, IR will not be able to sedate for your scan. Pt verbalized understanding of these instructions during the pre-procedure education via phone. Yes Name of hammer driver: Daughter Phone number: PRIOR SCAN DATE/S SEDATION TYPE SUCCESSFUL 07/14/22 MRI Cardiac Morphology Function with Flow Velocity Quantification wwo Contrast Ativan 1mg x 1 dose Pass Revised 08/03/17 documented in this encounter Plan of Treatment Upcoming Encounters Date Type Department Care Team (Late st Contact Info) Description 01/16/2024 10:00 AM [facility] Hospital Encounter [place] [address] Arrived documented as of this encounter Procedures [...] specialist that requested your imaging first. ? Electronically signed by: Greyson Herron MD, [facility] ([phone]), at 07/15/2022 9:53 AM Narrative 07/15/2022 9:53 [...] mg documented in this encounter Care Teams Electro Optical Engineer Relationship Specialty Start Date End Date Lolly Oliveira MD [address] [place] [address] PCP - General 07/17/13 documented as of this encounter
--- OUTSIDE RECORDS SUMMARY | 2023-10-29 11:15 | XMS_ITS | Encounter Summary ---
Author Organization [facility] [place] [address] Care Team Providers Care Canvas Goods Maker Name Role Phone Lolly Oliveira MD Primary Care Provider [phone] Encounter Details Date Type Department Care Team (Late Contact Info) Description 01/14/2022 Telephone Dermatology at [address] [address] Nora Meredith LPN Social History [...] return to phototherapy. New order sent to [facility]. Reviewed with patient Dr. Mar recommendation. She agrees with plan of care. Advised patient order will be sent to [facility]. She voiced understanding. documented in this encounter Plan of Treatment Upcoming Encounters Date Type Department Care Team (Late Contact Info) Description 01/16/2024 10:00 AM EST Hospital Encounter Non[place] [address] Arrived documented as of this encounter Visit Diagnoses Not on filedocumented in this encounter Care Teams Canvas Goods Maker Relationship Specialty Start Date End Date Lolly Oliveira MD [address] [place] [address] PCP - General 07/17/13 documented as of this encounter
--- OUTSIDE RECORDS SUMMARY | 2023-10-29 11:15 | XMS_ITS | Encounter Summary ---
Author Organization [facility] [place] [address] Care Team Providers Care Crate Maker Name Role Phone Lolly Oliveira MD Primary Care Provider [phone] Encounter Details Date Type Department Care Team (Late st Contact Info) Description 06/29/2011 [place] [phone] Eleno Christian MD [facility] DIAGNOSTIC [place] [address] Social History Tobacco Use Types Packs/Day Years [...] AM EST Hospital Encounter Non-[place] [address] Arrived documented as of this encounter Procedures [...] a Non-reportable exam Eleno Christian MD [facility] FILM LIBRARY ORD ERABLES documented in this encounter Visit Diagnoses Not on filedocumented in this encounter Care Teams Crate Maker Relationship Specialty Start Date End Date Lolly Oliveira MD [address] [place] [address] PCP - General 07/17/13 documented as of this encounter
--- OUTSIDE RECORDS SUMMARY | 2023-10-29 11:15 | XMS_ITS | Encounter Summary ---
Author Organization [facility] [place] [address] Care Team Providers Care Setter Molding And Coremaking Machines Name Role Phone Lolly Oliveira MD Primary Care Provider [phone] Encounter Details Date Type Department Care Team (Late st Contact Info) Description 10/09/2021 Telephone Dermatology at [address] [address] Nora Meredith LPN Social History [...] Contact Info) Description 01/16/2024 10:00 AM [facility] Hospital Encounter Non[place] [address] Arrived documented as of this encounter Visit Diagnoses Not on filedocumented in this encounter Care Teams Setter Molding And Coremaking Machines Relationship Specialty Start Date End Date Lolly Oliveira MD [address] [place] [address] PCP - General 07/17/13 documented as of this encounter
--- OUTSIDE RECORDS SUMMARY | 2023-10-29 11:15 | XMS_ITS | Encounter Summary ---
[place] [address] Care Team Providers Care Global Program Manager Name Role Phone Lolly Oliveira MD Primary Care Provider [phone] Encounter Details Date Type Department Care Team [...] AM EST Hospital Encounter Non-[place] [address] Arrived documented as of this encounter Visit Diagnoses Not on filedocumented in this encounter Care Teams Global Program Manager Relationship Specialty Start Date End Date Lolly Oliveira MD [address] [place] [address] PCP - General 07/17/13 documented as of this encounter
--- OUTSIDE RECORDS SUMMARY | 2023-10-29 11:15 | XMS_ITS | Encounter Summary ---
Author Organization [facility] [place] [address] Care Team Providers Care Desk Officer Name Role Phone Lolly Oliveira MD Primary Care Provider [phone] Reason for Referral * Consultation (Routine) - Closed Specialty Diagnoses / Procedures Referred By Contact Referred To Contact Electrophysiology / Cardiology Diagnoses Left bundle branch block Cardiomyopathy, unspecified type AT MINIMUM PT NEEDS CONSIDERATION FOR DEFIBRILLATOR, ALSO CANDIDATE FOR RESYNCHRONIZATION THERAPY HER QRS IS >0.16 Lolly Oliveira MD [address] [place] [address] [facility] Cardiology [address] [place] [phone] Referral ID Status Reason Start Date Expiration Date V isits Requested Visits Authorized [id number] Closed Consult, Test & Treat PCP Updated and/or Approved 04/30/2022 04/30/2023 6 6 Encounter Details Date Type Department Care Team (Latest Contact Info) Description 04/30/2022 Transcribe Orders eDH Incoming Referrals [phone] Lolly Oliveira MD [address] [place], [place] [id number] Left bundle branch block; Cardiomyopathy, unspecified type [...] AM EST Hospital Encounter Non-Invasive [place] [address] Arrived Scheduled Referrals Name Type Priority Associated Diagnoses Orde r Schedule Referral to Cardiology Outpatient Referral Routine Left bundle branch block Cardiomyopathy, Unspecified Type Ordered: 04/30/2022 documented as of this encounter Visit Diagnoses Diagnosis Left bundle branch block Other left bundle branch block Cardiomyopathy, unspecified type documented in this encounter Care Teams Desk Officer Relationship Specialty Start Date End Date Lolly Oliveira MD [address] [place] [address] PCP - General 07/17/13 documented as of this encounter
--- OUTSIDE RECORDS SUMMARY | 2023-10-29 11:15 | XMS_ITS | Encounter Summary ---
Author Organization [facility] [place] [address] Care Team Providers Care Configuration Manager Name Role Phone Lolly Oliveira MD Primary Care Provider [phone] Reason for Referral * Diagnostic Test (Routine) - Closed Specialty Diagnoses / Procedures Referred By Contac t Referred To Contact Radiology Diagnoses Left bundle branch block Nonischemic cardiomyopathy Procedures MRI Cardiac Morphology Function With Flow Velocity Quantification wwo Contrast MRI Cardiac Morphology Function wwo Contrast Lalit Mcmahon MD [facility] [place] [address] [place] [address] Referral ID Status Reason Start Date Expiration Date V isits Requested Visits Authorized [id number] Closed Specialty Service Requested 05/06/2022 11/07/2023 2 1 Encounter Details Date Type Department Care Team (Late st Contact Info) Description 05/06/2022 Orders Only Cardiology at [address] [address] Lalit Mcmahon MD [facility] [address] Left bundle branch block; Nonischemic cardiomyopathy Social [...] AM EST Hospital Encounter Non-Invasive [place] [address] Arrived documented as of this encounter Results [...] have questions please contact the health post acute care nurse practitioner that requested your imaging first. ? Narrative [...] who have questions please contactthe health post acute care nurse practitioner that requested your imaging first. Lalit Mcmahon MD IMG MRI ORDERABLES documented in this encounter Visit Diagnoses Diagnosis Left bundle branch block Other left bundle branch block Nonischemic cardiomyopathy Other primary cardiomyopathies Left bundle branch block Other left bundle branch block Nonischemic cardiomyopathy Other primary cardiomyopathies documented in this encounter Care Teams Configuration Manager Relationship Specialty Start Date End Date Lolly Oliveira MD [address] [place] [address] PCP - General 07/17/13 documented as of this encounter
--- OUTSIDE RECORDS SUMMARY | 2023-10-29 11:15 | XMS_ITS | Encounter Summary ---
Author Organization [facility] [place] [address] Care Team Providers Care Social Science Analyst Name Role Phone Lolly Oliveira MD Primary Care Provider [phone] Encounter Details Date Type Department Care Team (Latest Contact Info) Description 07/18/2013 [place] [phone] Alia Fraire MD [facility] DIAGNOSTIC [place] [address] Mammographic microcalcification (Primary Dx) Social History Tobacco [...] AM EST Hospital Encounter Non-Invasive [place] [address] Arrived documented as of this encounter Results [...] are present on specimen digital X-ray. A BigStringrk Eviva-Stereo 13 Cylinder marker clip was placed. [...] calcifications are present on specimendigital X-ray. A BigStringrk Eviva-Stereo 13 Cylinder marker clip was placed. [...] does not layer and, therefore, are not ocean import representative of milk of calcium. Again, these [...] does not layer and, therefore, are not ocean import representative of milk of calcium. Again, these have an amorphous andpunctate appearance and remain indeterminate. Stereotactic guided biopsy isrecommended. Alia Fraire MD IMG MAMMO ORDERABLES documented in this encounter Visit Diagnoses Diagnosis Mammographic microcalcification- Primary Mammographic microcalcification Mammographic microcalcification Mammographic microcalcification Mammographic microcalcification documented in this encounter Care Teams Social Science Analyst Relationship Specialty Start Date End Date Lolly Oliveira MD [address] [place] [address] PCP - General 07/17/13 documented as of this encounter
--- OUTSIDE RECORDS SUMMARY | 2023-10-29 11:15 | XMS_ITS | Encounter Summary ---
[place] [address] Care Team Providers Care Storm Door Maker Name Role Phone Lolly Oliveira MD Primary Care Provider [phone] Encounter Details Date Type Department Care Team [...] AM EST Hospital Encounter Non-[place] [address] Arrived documented as of this encounter Visit Diagnoses Not on filedocumented in this encounter Care Teams Storm Door Maker Relationship Specialty Start Date End Date Lolly Oliveira MD [address] [place] [address] PCP - General 07/17/13 documented as of this encounter
--- OUTSIDE RECORDS SUMMARY | 2023-10-29 11:15 | XMS_ITS | Encounter Summary ---
[place] [address] Care Team Providers Care Telegraphic Instrument Supervisor Name Role Phone Lolly Oliveira MD Primary Care Provider [phone] Encounter Details Date Type Department Care Team (Late st Contact Info) Description 07/17/2013 [place] [phone] Lolly Oliveira MD [address] [place], [place] [id number] Social History Tobacco Use Types Packs/Day Years [...] AM EST Hospital Encounter Non-[place] [address] Arrived documented as of this encounter Procedures [...] OUTSIDE MAMMOGRAMS (PERFORMED ON 07/06/13 AND 07/14/13) [facility] DATED 07/17/13: DIAGNOSTIC IMAGING SUMMARY: RIGHT [...] on filedocumented in this encounter Care Teams Telegraphic Instrument Supervisor Relationship Specialty Start Date End Date Lolly Oliveira MD [address] [place] [address] PCP - General 07/17/13 documented as of this encounter
--- OUTSIDE RECORDS SUMMARY | 2023-10-29 11:15 | XMS_ITS | Encounter Summary ---
Author Organization [facility] [place] [address] Care Team Providers Care Power Plant Mechanic Name Role Phone Lolly Oliveira MD Primary Care Provider [phone] Encounter Details Date Type Department Care Team (Latest Contact Info) Description 07/26/2013 9:44 AM EDT - 07/26/2013 11:59 PM EDT Hospital En[place] [address] CLINIC, Lolly So MD [address] [place], [place] [id number] Mammographic microcalcification Discharge Disposition: Home Social History [...] AM EST Hospital Encounter Non-[place] [address] Arrived documented as of this encounter Procedures [...] are present on specimen digital X-ray. A unamia-Stereo 13 Cylinder marker clip was placed. Cranio-caudal [...] mLs documented in this encounter Care Teams Power Plant Mechanic Relationship Specialty Start Date End Date Lolly Oliveira MD [address] [place] [address] PCP - General 07/17/13 documented as of this encounter
--- OUTSIDE RECORDS SUMMARY | 2023-10-29 11:15 | XMS_ITS | Encounter Summary ---
Author Organization [facility] [place] [address] Care Team Providers Care Desizing Machine Operator Head End Name Role Phone Unavailable Primary Care Provider Unavailabl e Encounter Details Date Type Department Care Team (Late st Contact Info) Description 07/04/2012 [place] [phone] Eleno Christian MD [facility] [place] [address] Social History Tobacco Use Types Packs/Day Years [...] AM EST Hospital Encounter Non-[place] [address] Arrived documented as of this encounter Procedures [...] is a Non-reportable exam Eleno Christian MD [facility] FILM LIBRARY ORD ERABLES documented in this encounter Visit Diagnoses Not on filedocumented in this encounter
--- OUTSIDE RECORDS SUMMARY | 2023-10-29 11:15 | XMS_ITS | Encounter Summary ---
Author Organization [facility] [address] Care Team Providers Care Roll Inspector Name Role Phone Unavailable Primary Care Provider Unavailabl e Encounter Details Date Type Department Care Team (Late st Contact Info) Description 07/14/2013 [place] [phone] Eleno Christian MD [facility] DIAGNOSTIC [place] [address] Social History Tobacco Use Types Packs/Day Years [...] AM EST Hospital Encounter [place] [address]1000 Arrived documented as of this encounter Visit Diagnoses Not on filedocumented in this encounter
--- OUTSIDE RECORDS SUMMARY | 2023-10-29 11:15 | XMS_ITS | Encounter Summary ---
Author Organization [facility] [place] [address] Care Team Providers Care Networker Name Role Phone Lolly Oliveira MD Primary Care Provider Reason for Visit * Diagnostic Test (Routine) - Closed Specialty Diagnoses / Procedures Referred By Contac t Referred To Contact Radiology Diagnoses Left bundle branch block Nonischemic cardiomyopathy Procedures MRI Cardiac Morphology Function With Flow Velocity Quantification wwo Contrast MRI Cardiac Morphology Function wwo Contrast Lalit Mcmahon MD [facility] [place] [address] [facility] [place] [address] Referral ID Status Reason Start Date Expiration Date V isits Requested Visits Authorized [id number] Closed Specialty Service Requested 05/06/2022 11/07/2023 2 1 Encounter Details Date Type Department Care Team (Latest Contact Info) Description 07/14/2022 9:09 AM EDT - 07/14/2022 11:59 PM EDT Hospital [place] [address] Lalit Mcmahon MD [facility] [place] [address] Discharge Disposition: Home Social History Tobacco Use [...] with spacer fluticasone propionate (Flonase) 50 mcg/actuation [place], Suspension 1 spray by Each Nare route [...] AM EST Hospital Encounter Non-[place] [address] Arrived documented as of this [...] mLs documented in this encounter Care Teams Networker Relationship Specialty Start Date End Date Lolly Oliveira MD [address] [place] [address] PCP - General 07/17/13 documented as of this encounter
--- OUTSIDE RECORDS SUMMARY | 2023-10-29 11:15 | XMS_ITS | Encounter Summary ---
Author Organization [facility] [place] [address] Care Team Providers Care Product Marketing Analyst Name Role Phone Lolly Oliveira MD Primary Care Provider [phone] Encounter Details Date Type Department Care Team (Latest Contact Info) Description 07/17/2013 8:40 AM EDT - 07/17/2013 11:59 PM EDT Hospital Encounter XRay at [address] [place] [phone] CLINIC, DR [facility] Discharge Disposition: Home Social [...] AM EST Hospital Encounter Non-[place] [address] Arrived documented as of this encounter Visit Diagnoses Not on filedocumented in this encounter Care Teams Product Marketing Analyst Relationship Specialty Start Date End Date Lolly Oliveira MD [address] [place] [address] PCP - General 07/17/13 documented as of this encounter
--- OUTSIDE RECORDS SUMMARY | 2023-10-29 11:15 | XMS_ITS | Encounter Summary ---
Author Organization [facility] [place] [address] Care Team Providers Care Clerk Secretary Name Role Phone Lolly Oliveira MD Primary Care Provider [phone] Reason for Visit * Reason Comments Follow-up Encounter Details Date Type Department Care Team (Late st Contact Info) Description 05/21/2022 8:00 AM EDT Office Visit Dermatology at [address] [phone] Clay Ramírez MD [address] [facility] [place] [address] Psoriasis, guttate Social History Tobacco Use Types Packs/Day Years Used Date Smoking Tobacco: Never Sex and Gender Information Value Date Recorded Sex Assigned at Not on file Gender Identity Not on file Sexual Orientation Not on file documented as of this encounter Progress Notes * Clay Ramríez MD - 05/21/2022 8:00 AM EDT Problem: [...] st Contact Info) Description 01/16/2024 10:00 AM [facility] Hospital Encounter Non-Invasive [place] [address] Arrived documented as of this encounter Visit Diagnoses Diagnosis Psoriasis, guttate Other psoriasis documented in this encounter Care Teams Clerk Secretary Relationship Specialty Start Date End Date Lolly Oliveira MD [address] [place] [address] PCP - General 07/17/13 documented as of this encounter
--- OUTSIDE RECORDS SUMMARY | 2023-10-29 11:15 | XMS_ITS | Encounter Summary ---
Author Organization [facility] [place] [address] Care Team Providers Care Hypnotherapist Name Role Phone Lolly Oliveira MD Primary Care Provider [phone] Reason for Visit * Reason Comments Psoriasis Encounter Details Date Type Department Care Team (Late st Contact Info) Description 04/09/2022 1:45 PM EST Office Visit Dermatology at [address] [address] Clay Ramírez MD [address] [facility] [place] [address] Psoriasis, guttate Social History Tobacco Use Types [...] AM EST Hospital Encounter Non-[place] [address] Arrived documented as of this encounter Visit Diagnoses Diagnosis Psoriasis, guttate Other psoriasis documented in this encounter Care Teams Hypnotherapist Relationship Specialty Start Date End Date Lolly Oliveira MD [address] [place] [address] PCP - General 07/17/13 documented as of this encounter
--- OUTSIDE RECORDS SUMMARY | 2023-10-29 11:15 | XMS_ITS | Encounter Summary ---
[place] [address] Care Team Providers Care Paperback Machine Operator Name Role Phone Lolly Oliveira MD Primary Care Provider [phone] Encounter Details Date Type Department Care Team [...] AM EST Hospital Encounter Non-Invasive [place] [address] Arrived documented as of this encounter Visit Diagnoses Not on filedocumented in this encounter Care Teams Paperback Machine Operator Relationship Specialty Start Date End Date Lolly Oliveira MD [address] [place] [address] PCP - General 07/17/13 documented as of this encounter
--- OUTSIDE RECORDS SUMMARY | 2023-10-29 11:15 | XMS_ITS | Encounter Summary ---
Author Organization [facility] [place] [address] Care Team Providers Care General Engineering Teacher Name Role Phone Lolly Oliveira MD Primary Care Provider [phone] Encounter Details Date Type Department Care Team (Latest Contact Info) Description 07/20/2013 9:26 AM EDT - 07/20/2013 11:59 PM EDT Hospital En[place] [address] CLINIC, Lolly So MD [address] [place], [place] [id number] Mammographic microcalcification Discharge Disposition: Home Social History [...] AM EST Hospital Encounter [place] [address] Arrived documented as of this encounter Procedures [...] does not layer and, therefore, are not contact representative of milk of calcium. Again, these [...] does not layer and, therefore, are not contact representative of milk of calcium. Again, these have an amorphous andpunctate appearance and remain indeterminate. Stereotactic guided biopsy isrecommended. Alia Fraire MD IMG MAMMO ORDERABLES documented in this encounter Visit Diagnoses Diagnosis Mammographic microcalcification documented in this encounter Care Teams General Engineering Teacher Relationship Specialty Start Date End Date Lolly Oliveira MD [address] [place] [address] PCP - General 07/17/13 documented as of this encounter
--- OUTSIDE RECORDS SUMMARY | 2023-10-29 11:15 | XMS_ITS | Encounter Summary ---
Author Organization [facility] [place] [address] Care Team Providers Care Almond Sorter Name Role Phone Lolly Oliveira MD Primary Care Provider [phone] Reason for Visit * Reason Onset Date Comments Pre Procedure Call 07/01/2022 Encounter Details Date Type Department Care Team (Late st Contact Info) Description 07/01/2022 Telephone Cardiology at [address] [phone] Rosenda Sutton RN Pre Procedure Call Social History Tobacco Use Types Packs/Day Years Used Date Smoking Tobacco: Never Sex and Gender Information Value Date Recorded Sex Assigned at Not on file Gender Identity Not on file Sexual Orientation Not on file documented as of this encounter Miscellaneous Notes * Telephone Encounter - Rosenda Sutton RN - 07/01/2022 9:30 AM EDTSummary: Pre Procedure Call: RESTAURANT MANAGER implant EP DIRECTOR CPG COORDINATION CHECKLIST Patient Name: Luna Mott Patient Performing Varnish Inspector: Lalit Mcmahon Referring Provider: Lolly Oliveira Date of Procedure: 07/23/22 Arrival Time/ Case Time: 12:00 pm / 1:00 pm Check In Location: Chief Development Officer Desk 4W Date Patient was Called: 07/01/22 Procedure: RESTAURANT MANAGER Company: [employer] Type: RESTAURANT MANAGER-D Laterality: LEFT Orders: Yes Lab Orders: Yes [...] overnight , understands that they will need tank wagon driver on day of discharge Notified pt that Goff catheter may be placed on day of procedure depending on type & duration of case. documented in this encounter Plan of Treatment Upcoming Encounters Date Type Department Care Team (Late st Contact Info) Description 01/16/2024 10:00 AM [facility] Hospital Encounter [place] [address] Arrived documented as of this encounter Visit Diagnoses Not on filedocumented in this encounter Care Teams Almond Sorter Relationship Specialty Start Date End Date Lolly Oliveira MD [address] [place] [address] PCP - General 07/17/13 documented as of this encounter
[2023-11-03 11:22] VITALS: BP 126/70; PULSE 69
--- OUTSIDE RECORDS SUMMARY | 2023-11-03 11:22 | XMS_ITS | Encounter Summary ---
Author Organization [facility] [address] Care Team Providers Care Parcel Post Weigher Name Role Phone Lolly Oliveira MD Primary Care Provider [phone] Encounter Details Date Type Department Care Team (Latest Contact Info) Description 10/23/2022 10:00 AM EDT - 10/23/2022 11:59 PM EDT Hospital Encounter Non[place] [address] Discharge Disposition: Home Social History Tobacco Use [...] with spacer fluticasone propionate (Flonase) 50 mcg/actuation [place], Suspension 1 spray by Each Nare route [...] st Contact Info) Description 01/16/2024 10:00 AM [facility] Hospital Encounter Non[place] [address] Arrived documented as of this [...] on filedocumented in this encounter Care Teams Parcel Post Weigher Relationship Specialty Start Date End Date Lolly Oliveira MD [address] [place] [address] PCP - General 07/17/13 documented as of this encounter
--- OUTSIDE RECORDS SUMMARY | 2023-11-03 11:22 | XMS_ITS | Encounter Summary ---
Author Organization [facility] Address [facility] [place] [address] Care Team Providers Care Echometer Engineer Name Role Phone Lolly Oliveira MD Primary Care Provider [phone] Encounter Details Date Type Department Care Team (Late st Contact Info) Description 01/29/2023 Notes Only Cardiology at [address] [address] Merle Lin PA [facility] [place] [address] Social History Tobacco Use Types Packs/Day Years Used Date Smoking Tobacco: Never Alcohol Use Standard Drinks/Week Comments Not Currently 0 (1 standard drink = 0.6 oz pur e alcohol) [facility] Inpatient Questions Answer Date Recorded Does Anyone [...] pdf document Date of transmission: 01/29/2023 Device homicide squad sergeant: BSI Device type: PAINTER MAINTENANCE-D Presenting rhythm: /RVP/LVP AP 21% Right PAPER REWINDER 100% Left PAPER REWINDER: 100% Battery: 10.5 years HeartLogic Index rising in setting of increasing S3 intensity, increasing respiratory rate, increasing night heart rate, and increasing mean heart rate. MICKEY Villa 01/29/2023 9:06 AM documented in this encounter Plan of Treatment Upcoming Encounters Date Type Department Care Team (Late st Contact Info) Description 01/16/2024 10:00 AM EST Hospital Encounter Non-[place] [address] Arrived documented as of this encounter Visit Diagnoses Not on filedocumented in this encounter Care Teams Echometer Engineer Relationship Specialty Start Date End Date Lolly Oliveira MD [address] [place] [address] PCP - General 07/17/13 documented as of this encounter
--- OUTSIDE RECORDS SUMMARY | 2023-11-03 11:22 | XMS_ITS | Encounter Summary ---
Author Organization Replaced By [facility] [place] [address] Care Team Providers Care Assistant Kitchen Manager Name Role Phone Lolly Oliveira MD Primary Care Provider [phone] Encounter Details Date Type Department Care Team (Latest Contact Info) Description 10/18/2023 10:00 AM EDT - 10/18/2023 11:59 PM EDT Hospital Encounter [place] [address] Discharge Disposition: Home Social History Tobacco Use [...] with spacer fluticasone propionate (Flonase) 50 mcg/actuation [place], Suspension 1 spray by Each Nare route daily as needed. documented as of this encounter Plan of Treatment Upcoming Encounters Date Type Department Care Team (Late st Contact Info) Description 01/16/2024 10:00 AM EST Hospital Encounter Non[place] [address] Arrived documented as of this encounter Procedures [...] filedocumented in this encounter Care Teams Assistant Kitchen Manager Relationship Specialty Start Date End Date Lolly Oliveira MD [address] [place] [address] PCP - General 07/17/13 documented as of this encounter
--- OUTSIDE RECORDS SUMMARY | 2023-11-03 11:22 | XMS_ITS | Encounter Summary ---
Author Organization [facility] Address [address] [place] [address] Care Team Providers Care Binding Dyer Name Role Phone Lolly Oliveira MD Primary Care Provider [phone] Encounter Details Date Type Department Care Team (Late st Contact Info) Description 05/02/2004 Results Only [facility] [address] [place] [address] Lolly Oliveira MD [address] [place], [place] [id number] Social History Tobacco Use Types Packs/Day Years [...] 68. [facility] Report Status Final [id number] [facility] 05/02/2004 9:32 EST 05/10/2004 9:32 EST Lolly Oliveira MD MICROBIOLOGY - GENER AL ORDERABLES [facility] [address] [place] [address] * CYTOPATHOLOGY (05/02/2004 0:00 EST) Pathology Report: CYTOPATHOLOGY REPORT Reports generated via electronic interface contain original data; however they are lacking the format of the original report. Caution should be taken when reading/interpreti ng unformatted reports. Name: ? JING ALVARENGA ? Accession #: ? [id number] : ? 1950 (Age: 53) ??F ?Collect [...] Report Date: ??05/09/2004 13:30 End of Report [facility] 05/02/2004 05/06/2004 Lolly Oliveira MD PATHOLOGY ORDERABLES Performing Organization Address City/State/RUST Co de Phone Number [facility] [address] [place] [address] documented in this encounter Visit Diagnoses Not on filedocumented in this encounter Care Teams Binding Dyer Relationship Specialty Start Date End Date Lolly Oliveira MD [address] [place] [address] PCP - General 11/13/08 documented as of this encounter
--- OUTSIDE RECORDS SUMMARY | 2023-11-03 11:22 | XMS_ITS | Encounter Summary ---
Author Organization [place] [address] Care Team Providers Care Chemical Laboratory Assistant Name Role Phone Lolly Oliveira MD Primary Care Provider [phone] Encounter Details Date Type Department Care Team (Late st Contact Info) Description 11/16/2022 Telephone Cardiology at [address] [address] Luna Rousseau, RN Social History Tobacco Use Types Packs/Day Years Used Date Smoking Tobacco: Never Alcohol Use Standard Drinks/Week Comments Not Currently 0 (1 standard drink = 0.6 oz pur e alcohol) [facility] Inpatient Questions Answer Date Recorded [...] today was 118/57 at CR at [facility]. Pt is going twice a week to [...] [facility] Hospital Encounter Non-[place] [address] Arrived documented as of this encounter Visit Diagnoses Not on filedocumented in this encounter Care Teams Chemical Laboratory Assistant Relationship Specialty Start Date End Date Lolly Oliveira MD [address] [place] [address] PCP - General 07/17/13 documented as of this encounter
--- OUTSIDE RECORDS SUMMARY | 2023-11-03 11:22 | XMS_ITS | Encounter Summary ---
Author Organization [facility] Address [address] [place] [address] Care Team Providers Care Veterinary Assistant Technician Name Role Phone Lolly Oliveira MD Primary Care Provider [phone] Encounter Details Date Type Department Care Team (Late st Contact Info) Description 03/21/2019 Lab Requisition [facility] Pathology & Laboratory Medicine - [address] [address] Unknown, Provider, Social History Tobacco Use Types [...] 211 - 911 pg/mL 03/22/2019 11:52 EST [facility] Blood VENOUS BLOOD / Unknown 03/16/2019 9:25 EST 03/21/2019 21:35 EST Provider Unknown CHEMISTRY & BLOOD GA S ORDERABLES [facility] [address] [place] [address] documented in this encounter Visit Diagnoses Not on filedocumented in this encounter Care Teams Veterinary Assistant Technician Relationship Specialty Start Date End Date Lolly Oliveira MD [address] [place] [address] PCP - General 11/13/08 documented as of this encounter
--- OUTSIDE RECORDS SUMMARY | 2023-11-03 11:22 | XMS_ITS | Encounter Summary ---
Author Organization [facility] Address [address] [place] [address] Care Team Providers Care Stroboscope Operator Name Role Phone Lolly Oliveira MD Primary Care Provider Encounter Details Date Type Department Care Team (Late st Contact Info) Description 05/29/2002 Results Only [facility] [address] [place] [address] Silvia Diehl, [address] [place] [phone] Social History Tobacco Use Types Packs/Day Years [...] ? JING MOTT ? Accession #: ? [id number] : ? 1950 (Age: 51) ??F ?Collect Date: ? 05/29/2002 Location: ? [facility] ? Receive Date: ? 05/31/2002 Provider: ?SILVIA DIEHL REGISTERED PRIVATE DUTY NURSE Copy to: ? Specimen/Source: ?ThinPrep Pap Test, [...] Report [facility] 05/29/2002 05/31/2002 Silvia Diehl REGISTERED PRIVATE DUTY NURSE PATHOLOGY ORDERABLES [facility] [address] [place] [address] documented in this encounter Visit Diagnoses Not on filedocumented in this encounter Care Teams Stroboscope Operator Relationship Specialty Start Date End Date Lolly Oliveira MD [address] [place] [address] PCP - General 11/13/08 documented as of this encounter"
--- OUTSIDE RECORDS SUMMARY | 2023-11-03 11:22 | XMS_ITS | Encounter Summary ---
Author Organization [facility] [place] [address] Care Team Providers Care Computer Architect Name Role Phone Lolly Oliveira MD Primary Care Provider [phone] Encounter Details Date Type Department Care Team (Late st Contact Info) Description 03/15/2023 Telephone Cardiology at [address] [phone] Saranya Ma Social History Tobacco Use Types Packs/Day Years Used Date Smoking Tobacco: Never Alcohol Use Standard Drinks/Week Comments Not Currently 0 (1 standard drink = 0.6 oz pur e alcohol) [facility] Inpatient Questions Answer Date Recorded [...] her to have an echo done at [facility] prior to her appt withnym there on 05/12/23. Message sent to Dr. Mcmahon asking him to put order in if he would like her to have this done. Saranya Ma Sr. Clinical Procedure [employer] Technical Assistant documented in this encounter Plan of Treatment Upcoming Encounters Date Type Department Care Team (Late st Contact Info) Description 01/16/2024 10:00 AM EST Hospital Encounter Non-Invasive [place] [address] Arrived documented as of this encounter Visit Diagnoses Not on filedocumented in this encounter Care Teams Computer Architect Relationship Specialty Start Date End Date Lolly Oliveira MD [address] [place] [address] PCP - General 07/17/13 documented as of this encounter
--- OUTSIDE RECORDS SUMMARY | 2023-11-03 11:22 | XMS_ITS | Encounter Summary ---
Author Organization [facility] Address [address] [place] [address] Care Team Providers Care Yardage Control Clerk Name Role Phone Lolly Oliveira MD Primary Care Provider [phone] Encounter Details Date Type Department Care Team (Late st Contact Info) Description 05/27/2021 Lab Requisition [facility] Pathology & Laboratory Medicine - [address] [address] Iman Moran, DO [address] [place], [place] [id number] Encounter for other general examination Social History [...] management options, if applicable. 05/30/2021 13:31 EDT [facility] Final Diagnosis A. COLON, POLYP AT 90 CM, BIOPSY/POLYPECTOM Y: - Tubular adenoma. 05/30/2021 13:31 [facility] Attestation By the signature below, the attending physician certifies that they have 1) personally conducted a gross and/or microscopic examination of the described specimen(s), and/or personally interpreted the results of laboratory testing of the described specimen(s), and 2) personally rendered or confirmed the above diagnosis. 05/30/2021 13:31 [facility] at 1331 Clinical History Severe diverticula and polypectomy x1 05/30/2021 13:31 [facility] Gross Description A. Received in formalin labelled with proper patient identification (initials J, K) and colon polyp x1 at 90 cm is a light pineda polypoid tissue measuring 0.2 x 0.2 x 0.2 cm. Submitted intact in A1. MICKEY CARLOS(ASCP) 05/27/2021 19:11 05/30/2021 13:31 [facility] Performing Lab [facility] 05/30/2021 13:31 [facility] Scanned Images 05/30/2021 13:31 [facility] Tissue ENTIRE COLON / Unknown 05/27/2021 11:23 EDT 05/27/2021 16:33 EDT Iman Moran DO PATHOLOGY ORDERABLES [facility] [address] [place] [address] documented in this encounter Visit Diagnoses Diagnosis Encounter for other general examination documented in this encounter Care Teams Yardage Control Clerk Relationship Specialty Start Date End Date Lolly Oliveira MD [address] [place] [address] PCP - General 11/13/08 documented as of this encounter
--- OUTSIDE RECORDS SUMMARY | 2023-11-03 11:22 | XMS_ITS | Continuity of Care Document ---
Author Organization [place] [facility] Address [address] [place] [address] Care Team Providers Care Machine Container Washer Name Role Phone [facility] Optometris t ASHLY THURSTON Ruching Machine Operator JAYCOB MARTINEZ Orthopedic Surgeon [phone] ROXANA KELLEY Binder Selector FLOWER RAMSEY Dentist [phone] Assessment No assessment recorded. Plan of Treatment Reminders Order Date Submit Date Provider Last Modified By Organization Details Last Modified Time Details Appointments Follow Up 30 2023 07:30A M Not available Not available Not available Lab None recorded. Referral physical therapist referral 2023 024 Chinedu Amato PT, [address], [place], [address], 10/18/2023 12:01:58 Procedures None recorded. Surgeries None recorded. Imaging None recorded. Medication Orders meclizine 25 mg tablet 2023 024 [id number], [address] [place], [address], 09/01/2023 13:22:14 Patient TargetsNo targets recorded. Patient Instructions Encounter Date Encounter Id Patient Instructions Last Modified By Organization Details Last Modified Time 09/01/2023 [id number] 1. The earwax from your ears were [...] Not available 09/01/2023 13:23:33 Reason for Referral Commission Clerk Referral for Onyc homycosis onychomycosis, calluses Referring Physician: Lolly Oliveira, Family Medicine, Encounter Date: 05/21/2023 Physical Therapist Referral for Vertigo Referring Physician: Jessica Wallis Family Medicine, Encounter Date: 09/01/2023 Problems Name Problem SNOMED Code Status Onset Date Resolution Date Notes Provider Name and Address Organization Details Recorded Time Asthma 523991576 Active 200204/14/19 22 - Comments only - Lolly Oliveira MD - Not too much of an issue recently . She does keep albutero l inhaler availabl e if needed. Problem Code: 493.90; Problem Code Type: ICD-9; Not Available [facility] 3 04:01:51 Atypical glandula r cells on cervical Papanico laou smear 133853806 Active 2007 Problem Code: 795.00; Problem Code Type: ICD-9; Not Available [facility] 3 04:01:51 Dizzines s and giddines s 202085630 Active 201404/14/19 22 - Comments only - Lolly Oliveira MD - , Intermit tent. She has learned to deal with it using the Jd's maneuver . She will call if any signific ant worsenin g. Problem Code: R42; Problem Code Type: ICD-10; Not Available [facility] 3 04:01:52 [facility] hyperten pura 52007061 Active 201401/12/20 22 - Comments only - Lolly Oliveira MD - Blood pressure well controll ed with the lisinopr il and Toprol. Problem Code: I10; Problem Code Type: ICD-10; Not Available [facility] 3 04:01:52 Adult health examinat ion Active 201504/16/19 23 - Comments only - Lolly Oliveira MD - UTD with mammo, has a DEXA schedule d ( dx of osteopor osis), will check an A1c. Problem Code: Z00.00; Problem Code Type: ICD-10; Not Available [facility] 3 04:01:52 Disorder of skin and/or subcutan eous tissue 09907939 Active 201509/17/19 16 - Comments only - Lolly Oliveira MD - the lesions on the buttucks appear to have been possible boils that are now healing vs atopic rxn resolvin g. At this point no tx needed. If worsenin g/recurr ing she will call. I don't believe these are related to rubbing while walking Problem Code: L98.9; Problem Code Type: ICD-10; Not Available [facility] 3 04:01:52 Pain in right hip joint 33934508957 9102 Completed 201512/02/2022 Problem Code: M25.551; Problem Code Type: ICD-10; Not Available [facility] 3 04:01:52 Onychomy cosis due to dermatop hyte 573033043 Active 201609/23/19 17 - Comments only - Lolly Oliveira MD - she is going to contact podiatry to find out if they have any other topical txs that might work. She is not interest ed in systemic tx Problem Code: B35.1; Problem Code Type: ICD-10; Not Available [facility] 3 04:01:52 Hearing loss of right ear 389964502 Completed 201712/10/2017 11/27/19 18 - Comments only - Naseem Gil PA-C - Cerumino sis treated in-offic e today. If hearing fails to be fully restored over the course of the weekend, will consider for ENT refer for formal audiolog y assessme nt. Problem Code: H91.91; Problem Code Type: ICD-10; Not Available [facility] 3 04:01:52 Abnormal weight gain 865555626 Active 2018 Problem Code: R63.5; Problem Code Type: ICD-10; Not Available [facility] 3 04:01:53 Disorder of hip joint 803392150 Active 201801/12/20 22 - Comments only - Lolly Oliveira MD - ,rt. For which she would like a total hip replacem ent. 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 She is trying to continue being as mobile as she can comforta silva. Problem Code: M12.859; Problem Code Type: ICD-10; Not Available [facility] 3 04:01:53 Acute vaginiti s 40102979 Completed 201801/04/2019 12/22/19 19 - Comments only - Naseem Gil PA-C - Will await resutls of today's collecte d VPS to determin e indicati on for further treatmen t. 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 Addition ally, could consider to use OTC DESITIN for acute skin healing. Problem Code: L30.4; Problem Code Type: ICD-10; Not Available [facility] 3 04:01:53 Pre-surg cecilia evaluati on Completed 201801/23/2019 01/10/20 19 - Comments only - Naseem Gil PA-C - Today's EKG shows stable LBBB (compare d to study 10/19/14) with NSR at 69bpm. Patient to f/u for pre-oper ative laborato ry testing and anesthes ia consult as schedule d 01/17/19 . Problem Code: Z01.818; Problem Code Type: ICD-10; Not Available [facility] 3 04:01:53 Hip joint prosthes is present 202555562 Active 2018 Problem Code: Z96.642; Problem Code Type: ICD-10; Not Available [facility] 3 04:01:53 Dyspnea 342618844 Completed 201903/27/2019 03/13/19 20 - Comments only - Naseem Gil PA-C - Suspect some componen t of RAD. Assuming today's laboaror y testing returns as benign, patient agrees to trial RXd VENTOLIN HFA 2 puffs Q4-6hr PRN as manageme nt. We will plan to touch base with patient by phone on F 03/17/19 for status update. Problem Code: R06.02; Problem Code Type: ICD-10; Not Available [facility] 3 04:01:54 Edema 599587975 Completed 201906/21/2019 06/07/19 20 - Comments only - Naseem Gil PA-C - Patient reassure d nothing concerni ng on today's PX to raise suspicio n for DVT. Suspect minor calf muscle strain. OK to continue to use compress ion stocking s for symtpoma tic relief and consider calf stretche s. F/U PRN. Problem Code: R60.9; Problem Code Type: ICD-10; Not Available [facility] 3 04:01:54 Headache 93073689 Active 2020 Problem Code: R51.9; Problem Code Type: ICD-10; Not Available [facility] 3 04:01:54 Guttate psoriasi s 40982736 Active 202004/16/19 23 - Comments only - Lolly Oliveira MD - being followed by mika mercado under reasonab le control with the UV tx and prn clobetas ol cream Problem Code: L40.4; Problem Code Type: ICD-10; Not Available [facility] 3 04:01:54 Stool finding 527514178 Active 2021 Problem Code: R19.5; Problem Code Type: ICD-10; Not Available [facility] 3 04:01:54 Speciali rubind medical examinat ion Active 2021 Problem Code: Z01.89; Problem Code Type: ICD-10; Not Available [facility] 3 04:01:54 Edema 914058260 Active 2021 Problem Code: R60.9; Problem Code Type: ICD-10; Not Available [facility] 3 04:01:55 Screenin g mammogra phy Active 2021 Problem Code: Z12.31; Problem Code Type: ICD-10; Not Available [facility] 3 04:01:55 Abnormal finding on evaluati on procedur e 206976110 Active 2021 Problem Code: R89.9; Problem Code Type: ICD-10; Not Available [facility] 3 04:01:55 Dyspnea 573347932 Active 2021 Problem Code: R06.02; Problem Code Type: ICD-10; Not Available [facility] 3 04:01:55 Cardiomy opathy 73027634 Active 202109/05/19 23 - Comments only - Lolly Oliveira MD - Clinical ly remainin g stable on the lisinopr il, furosemi de 20 mg daily, Jardianc e, Toprol, rosuvast atin, aspirin. ICD/pace maker in place. Followin g with cardiolo gy. She is walking/ exercisi ng regularl y. Problem Code: I42.9; Problem Code Type: ICD-10; Not Available [facility] 3 04:01:55 Heart failure 58681827 Active 2021 Problem Code: I50.9; Problem Code Type: ICD-10; Not Available [facility] 3 04:01:56 Family history of breast cancer 217788082 Active 2021 Problem Code: Z80.3; Problem Code Type: ICD-10; Not Available [facility] 3 04:01:56 Burn 893792704 Active 202101/12/20 22 - Comments only - Lolly Oliveira MD - Healing slowly, no evidence of infectio n. If she has any further question s regardin g this she will let us know. Problem Code: T30.0; Problem Code Type: ICD-10; Not Available [facility] 3 04:01:56 Senile osteopor osis 98253031 Active 202101/12/20 22 - Comments only - Lolly Oliveira MD - Due for a repeat DEXA scan. Ordered. She does take an over-the -counter vitamin D suppleme nt I believe. Problem Code: M81.0; Problem Code Type: ICD-10; Not Available [facility] 3 04:01:56 Hyperlip idemia 23655115 Active 202204/16/19 23 - Comments only - Lolly Oliveira MD - will check LFTs, CPK, on rosuvast atin 5mg daily which has brought her lipids into goal range. Problem Code: E78.5; Problem Code Type: ICD-10; Not Available [facility] 3 04:01:56 Adjustme nt disorder 24999552 Active 2022 Problem Code: F43.20; Problem Code Type: ICD-10; Not Available [facility] 3 04:01:56 Dysuria 11714507 Active 2022 Problem Code: R30.9; Problem Code Type: ICD-10; Not Available [facility] 3 04:01:57 Itching of skin 940456917 Active 2022 Problem Code: L29.8; Problem Code Type: ICD-10; Not Available [facility] 3 04:01:57 Automati c implanta ble cardiac defibril lator in situ 483831722 Active 2022 Problem Code: Z95.810; Problem Code Type: ICD-10; Not Available [facility] 3 04:01:57 Glycosur ia 10078200 Active 202209/05/19 23 - Comments only - Lolly Oliveira MD - , No prior diagnosi s of diabetes . She is developi ng diabetes that could be number perineal symptoms . 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 Last V PMS was negative , repeat done today and pending. At this point we will have her start topical cortison e cream. She will use what she has at home. I wonder if this is an early lichen simplex chronicu s versus lichen planus. No current erosions or signific ant scaling. We also discusse d there could be an atopic componen t. She does wear cotton underwea r, does not use a pad on a regular basis but once in a while. She will try and switch her laundry detergen t to clear and free version. Problem Code: N90.89; Problem Code Type: ICD-10; Not Available [facility] 3 04:01:57 Allergic contact dermatit is 451034402 Completed 202012/02/2022 Problem Code: L23.9; Problem Code Type: ICD-10; Not Available [facility] 3 04:02:02 [facility] 06475361 Completed 200107/25/2015 Problem Code: 401.9; Problem Code Type: ICD-9; Not Available [facility] 3 04:02:03 Polyp of colon 79164413 Completed 201006/05/2021 Problem Code: K63.5; Problem Code Type: ICD-10; Not Available [facility] 3 04:02:03 History of vertigo 750805104 Completed 201012/02/2022 01/11/20 15 - Improved - Lolly Oliveira MD - she will continue with Jd's manoever PRN and call if worsenin g/nothin g helping Not Available [facility] 3 04:02:04 Acute sinusiti s 92935450 Completed 201912/16/2020 Problem Code: J01.90; Problem Code Type: ICD-10; Not Available [facility] 3 04:02:05 Pain of right lower leg 24591266465 9108 Completed 202101/11/2022 Problem Code: M79.661; Problem Code Type: ICD-10; Not Available [facility] 3 04:02:06 Hyperlip idemia 06334473 Completed 200910/19/2017 Not Available [facility] 3 04:02:07 Dizzines s and giddines s 322011528 Completed 201408/14/2019 Problem Code: R42; Problem Code Type: ICD-10; Not Available [facility] 3 04:02:07 Hyperten sive disorder 34071780 Completed 201011/03/2018 Not Available [facility] 3 04:02:09 Diarrhea 40459085 Completed 201610/19/2017 Problem Code: R19.7; Problem Code Type: ICD-10; Not Available [facility] 3 04:02:10 Anemia 040553129 Completed 201901/11/2022 Problem Code: D64.9; Problem Code Type: ICD-10; Not Available [facility] 3 04:02:10 Hunt - lesion 821840572 Active 2022 Problem Code: L84; Problem Code Type: ICD-10; Not Available [facility] 4 05:37:51 Foot callus 067272027 Active [address] [place], [address] , [facility] 4 11:29:32 Onychomy cosis 978772158 Active [address], [place], [address] , [facility] 4 11:29:44 Vertigo 861148354 Active [address], [place], [address] , [facility] 4 13:20:57 Impacted cerumen of bilatera l ears 71247413825 92487 Active [address], [facility] [address] , [facility] 4 13:21:03 Notes:*Problem Name: Colonos copy 2005 - Hyperplastic Polyp *ICD-10 Codes: *Problem Status: inactive *Comments: *Note Date: 04/29/2010 *Problem Name: Rt Breast Bx 2013 - Adenosis *ICD-10 Codes: *Problem Status: active *Comments: *Note Date: 08/01/2013 Problem Notes None recorded. Procedures Surgical History Date Name Laterality Status Provider Name and Address Organization Details Recorded Time 4 Cerumen Removal completed NATHAN HER[address] Dr, [facility] [address], [facility] 09/01/2023 13:52:38 3 total [facility] right [facility] 17:11:24 Imaging Results None recorded. Procedure Notes None recorded. Medical Equipment None Reported. Allergies Allergen ID Allergen Name Allergen Category Reaction Reaction Severity Criticality Documentation Date Start Date Code Code System Note Provider Name and Address Organization Details Recorded Time 94152 sulfadiaz ine medicatio n tachycard ia mild Not available 01/15/20232001 66061 RxNorm Tachy cardi a Not Available [facility] 3 16:22:29 Medications Name Sig Start Date [...] 1 tablet by mouth once a day 09/01/ 2022 10/06 /2023 completed Not Available Not Available Not Available [...] Updated DateTime 4 159.385 cm 38.7 kg/m2 21667.8 2 g 97.1 [degF] 17 /min 95 % 95 % 60 /min 139 mm[Hg] 69 mm[Hg] Vonda Fields RN [facility] 4 12:25:13 Social History Question Answer Notes LastModified by Organizat ion Details LastModified Time Tobacco Smoking Status Never Smoker Davey Allen MA null, [facility] 05/21/2023 10:57:21 Would You Say That, In General, Your Health Is Very Good [email or web address] Information not available 05/21/2023 How Often Does Anyone, Including Family, Physically Hurt You? Never [email or web address] Information not available 05/21/2023 How Often Does Anyone, Including Family, Insult Or Talk Down To You? Never [email or web address] Information no t available 05/21/2023 How Often Does Anyone, Including Family, Threaten You With Harm? Never [email or web address] Information not available 05/21/2023 How Often Does Anyone, Including Family, Scream Or Curse At You? Never [email or web address] Information not available 05/21/2023 Within The Past 12 Months, You Worried That Your Food Would Run Out Before You Got Money To Buy More. Never True [email or web address] Information n ot available 05/21/2023 Within The Past 12 Months, The Food You Bought Just Didn't Last And You Didn't Have Money To Get More. Never True [email or web address] Information n ot available 05/21/2023 How Hard Is It For You To Pay For The Very Basics Like Food, Housing, Medical Care, And Heating? Would You Say It Is: Not Hard At All [email or web address] Information not available 05/21/2023 In The Past 12 Months, Has Lack Of Reliable Transportation Kept You From Medical Appointments, Meetings, Work Or From Getting Things Needed For Daily Living? No Information not available 05/21/2023 What Is Your Housing Situation Today? I Have Housing. [email or web address] Information not available 05/21/2023 How Often In The Past Year Have You Used Marijuana (including Smoking, Vaping, Dabbing, Or Edibles)? Never Information not available 05/21/2023 How Often In The Past Year Have You Used Prescription Medications That Were Not Prescribed To You? Never [email or web address] Information n ot available 05/21/2023 How Often In The Past Year Have You Taken Your Own Prescription Medication More Than The Way It Was Prescribed Or For Different Reasons Than Its Intended Purpose? Never Information no t available 05/21/2023 How Often In The Past Year Have You Used Other Drugs (for Example, Heroin, Cocaine, Meth, Salvia, Inhalants)? Never [email or web address] Information not available 05/21/2023 Have You Ever Used IV Drugs? No [email or web address] Information not available 05/21/2023 What Matters Most To You? Staying Healthy, Keeping Active. Getting Exercise And Losing Some Weight [email or web address] Information not available 05/21/2023 During The Past Four Weeks Has Your Physical And Emotional Health Limited Your Social Activities With Family And Friends, Neighbors, Or Groups? Not At All [email or web address] Information not available 05/21/2023 During The Past Four Weeks, Was Someone Available To Help You If You Needed And Wanted Help? (For Example, If You [place] Very Nervous, Lonely, Or Blue; Got Sick And Had To Stay In Bed; Needed Someone To Talk To; Needed Help With Daily Chores; Or Needed Help Just Taking Care Of Yourself.) No- Not At All [email or web address] Information n ot available 05/21/2023 During The Past Four Weeks, What Was The Hardest Physical Activity You Could Do For At Least 2 Minutes? Moderate Information not available 05/21/2023 Can You Get To Places Out Of Walking Distance Without Help? (For Example, Can You Travel Alone On Buses Or Taxis, Or Drive Your Own Car?) Yes [email or web address] Information not available 05/21/2023 Can You Go Shopping For Groceries Or Clothes Without Someone? s Help? Yes [email or web address] Information not available 05/21/2023 Can You Prepare Your Own Meals? Yes [email or web address] Information not available 05/21/2023 Can You Do Your Housework Without Help? Yes Information not available 05/21/2023 Because Of Any Health Problems, Do You Need The Help Of Another Person With Your Personal Care Needs Such As Eating, Bathing, Dressing, Or Getting Around The House? No Information not available 05/21/2023 Can You Handle Your Own Money Without Help? Yes [email or web address] Information not available 05/21/2023 Are You Having Difficulties Driving Your Car? No Information no t available 05/21/2023 Do You Always Fasten Your Seat Belt When You Are In A Car? Yes- Usually [email or web address] Information not available 05/21/2023 How Often During The Past Four Weeks Have You Been Bothered By Any Of The Following Problems? Falling Or Dizzy When Standing Up? Never [email or web address] Information not available 05/21/2023 Sexual Problems? Never [email or web address] Informat ion not available 05/21/2023 Trouble Eating Well? Sometimes Information not available 05/21/2023 Teeth Or Denture Problems? Sometimes Information not available 05/21/2023 Problems Using The Telephone? Never [email or web address] Information not available 05/21/2023 Tiredness Or Fatigue? Sometimes [email or web address] Information not available 05/21/2023 Have You Had 2 Or More Falls Or Sustained An Injury With A Fall In The Last Year? No [email or web address] Information no t available 05/21/2023 Do You Have Difficulty With Walking Or Balance? No Information not available 05/21/2023 Do You Currently Use A Hearing Device? No [email or web address] Information not available 05/21/2023 Do You Currently Have Any Trouble With Your Vision? Yes [email or web address] Information no t available 05/21/2023 Do You Exercise For About 20 Minutes Three Or More Days A Week? Yes- Most Of The Time [email or web address] Information not available 05/21/2023 Are There Any Safety Concerns In Your Home (see Attached CDC Pamphlet)? No [email or web address] Information not available 05/21/2023 How Often Do You Have Trouble Taking Medicines The Way You Have Been Told To Take Them? I Always Take Them As Prescribed [email or web address] Information not available 05/21/2023 How Confident Are You That You Can Control And Manage Most Of Your Health Problems? Very Confident [email or web address] Information not available 05/21/2023 Do You Currently Have Any Difficulty With Your Hearing? No [email or web address] Information not available 05/21/2023 Date Of Most Recent SBINS 05/21/2023 [email or web address] Information not available 05/21/2023 What Was The Date Of Your Most Recent Tobacco Screening? 09/01/2023 Information not available 09/01/2023 Has Tobacco Cessation Counseling Been Provided? Yes Information not available 09/01/2023 On What Date Was Tobacco Cessation Counseling Provided? 09/01/2023 Information not available 09/01/2023 Do You Or Have You Ever Used Any Other Forms Of Tobacco Or Nicotine? No [email or web address] Information not available 05/21/2023 Sex: Female Functional [...] preservative free, adsorbed 11/03/2018 completed Not Available [facility] 01/15/2023 04:53:39 Tdap 04/12/2007 completed Not Available [facility] 04:53:39 zoster live 06/16/2012 completed Not Available [facility] 01/15/2023 04:53:40 Pneumococcal conjugate PCV 13 09/17/2015 completed Not Available [facility] 01/15/2023 04:53:40 Influenza, high-dose, trivalent, PF 11/26/2017 completed Not Available [facility] 01/15/2023 04:53:41 Td(adult) unspecified formulation 09/30/1992 completed Not Available [facility] 01/15/2023 04:53:41 Influenza, split virus, trivalent, preservative 11/28/2015 completed Not Available [facility] 01/15/2023 04:53:41 Influenza, split virus, trivalent, preservative 01/04/2015 completed Not Available [facility] 01/15/2023 04:53:41 Influenza, split virus, quadrivalent, PF 12/21/2018 completed Not Available [facility] 01/15/2023 04:53:41 zoster recombinant 08/30/[address] [facility] 01/15/2023 04:53:42 zoster recombinant 01/26/[address] [facility] 01/15/2023 04:53:42 Influenza, high-dose, quadrivalent, PF 12/04/2020 completed Not Available [facility] 01/15/2023 04:53:43 Influenza, high-dose, quadrivalent, PF 12/11/2019 completed Not Available [facility] 01/15/2023 04:53:43 Influenza, high-dose, quadrivalent, PF 12/29/2021 completed Not Available [facility] 01/15/2023 04:53:43 COVID-19, mRNA, LNP-S, PF, 100 mcg/0.5mL dose or 50 mcg/0.25mL dose 07/09/2021 completed Not Available [facility] 01/15/2023 04:53:43 COVID-19 vaccine, vector-nr, rS-Ad26, PF, 0.5 mL 05/02/2020 completed Not Available [facility] 01/15/2023 04:53:44 SARS-COV-2 (COVID-19) vaccine, UNSPECIFIED 05/31/2020 completed Not Available [facility] 01/15/2023 04:53:44 SARS-COV-2 (COVID-19) vaccine, UNSPECIFIED 01/03/2021 completed Not Available [facility] 01/15/2023 04:53:44 pneumococcal polysaccharide PPV23 07/05/2014 completed Not Available [facility] 2022 04:53:45 Hep B, unspecified formulation 04/14/1993 completed Not Available [facility] 01/15/2023 04:53:45 Hep B, unspecified formulation 09/30/1992 completed Not Available [facility] 01/15/2023 04:53:46 Hep B, unspecified formulation 10/31/1992 completed Not Available [facility] 01/15/2023 04:53:46 influenza, unspecified formulation 12/11/2009 completed Not Available [facility] 01/15/2023 04:53:47 influenza, unspecified formulation 12/13/2012 completed Not Available [facility] 01/15/2023 04:53:47 influenza, unspecified formulation 12/18/2008 completed Not Available [facility] 01/15/2023 04:53:47 influenza, unspecified formulation 12/19/2010 completed Not Available [facility] 01/15/2023 04:53:47 influenza, unspecified formulation 12/30/2006 completed Not Available [facility] 01/15/2023 04:53:48 influenza, unspecified formulation 01/09/2014 completed Not Available [facility] 01/15/2023 04:53:48 influenza, unspecified formulation 01/26/2008 completed Not Available [facility] 01/15/2023 04:53:48 influenza, unspecified formulation 02/16/2012 completed Not Available [facility] 01/15/2023 04:53:48 Influenza, high-dose, quadrivalent, PF 12/17/2022 completed Not Available [facility] 03/19/2023 05:33:03 COVID-19, mRNA, LNP-S, PF, herminio-sucrose, 30 mcg/0.3 mL 12/28/2022 completed Not Available [facility] 03/19/2023 05:33:03 Past Encounters Encounter ID Performer Location Encounter Start Date Encounter Closed Date Diagnosis/Indication Diagnosis SNOMED-CT Code [id number] [address] [phone] 09/01/2023 10:23:16 09/01/2023 13:28:10 Vertigo [id number] Impacted c erumen of bilateral ears [id number] Health Concerns Section Related Observation LastModified by Organization Detai ls LastModified Time None Recorded Concern Status LastModified by Organization Details LastModified Time None Recorded Payers Encounter Date Sequence Insurance Name Policy Number Policy Lema Covered Member ID Lema Member ID Guarantor Name 09/01/2023 1 [id number]/ [place]ANTAGE - [place]PO) [id number] Luna Mott [id number] Luna Mott Notes Date Note Type [...] not recall the name of it. JESSICA WALLIS PA-C [address], [place], [address], [facility]. 09/01/2023 13:55:07 OBGyn Episode No OBEpisode recorded.
--- OUTSIDE RECORDS SUMMARY | 2023-11-03 11:22 | XMS_ITS | Encounter Summary ---
Author Organization [facility] [place] [address] Care Team Providers Care Associate Justice Name Role Phone Lolly Oliveira MD Primary Care Provider [phone] Encounter Details Date Type Department Care Team (Late st Contact Info) Description 05/18/2023 Refill Dermatology at [address] [phone] Nora Meredith LPN Social History [...] patient. She voiced understanding. Order sent to [facility]. documented in this encounter Plan of Treatment Upcoming Encounters Date Type Department Care Team (Late st Contact Info) Description 01/16/2024 10:00 AM EST Hospital Encounter Non[place] [address] Arrived documented as of this encounter Visit Diagnoses Not on filedocumented in this encounter Care Teams Associate Justice Relationship Specialty Start Date End Date Lolly Oliveira MD [address] [place] [address] PCP - General 07/17/13 documented as of this encounter
--- OUTSIDE RECORDS SUMMARY | 2023-11-03 11:22 | XMS_ITS | Encounter Summary ---
Author Organization [facility] Address [address] [place] [address] Care Team Providers Care Animal Control Officer Name Role Phone Lolly Oliveira MD Primary Care Provider [phone] Encounter Details Date Type Department Care Team (Late st Contact Info) Description 04/25/2009 Orders Only [facility] Laboratory Services - [facility] ([facility] [address] [place], [place] [id number] Lolly Oliveira MD [address] [place], [place] [id number] Social History Tobacco Use Types Packs/Day Years [...] ? JING ALVARENGA ? Accession #: ? [id number] ? : ? 1950 (Age: 58) ??F [...] reviewed and electronically signed by: ? Helena [place], [place](ASCP) ? Report Date: ??04/29/2009 10:38 ? End of Report ? [facility] 04/25/2009 04/26/2009 Lolly Oliveira MD PATHOLOGY ORDERABLES [facility] [address] [place] [address] documented in this encounter Visit Diagnoses Not on filedocumented in this encounter Care Teams Animal Control Officer Relationship Specialty Start Date End Date Lolly Oliveira MD [address] [place] [address] PCP - General 11/13/08 documented as of this encounter
--- OUTSIDE RECORDS SUMMARY | 2023-11-03 11:22 | XMS_ITS | Encounter Summary ---
Author Organization [facility] Address [address] [place] [address] Care Team Providers Care Lead Radiation Therapist Name Role Phone Lolly Oliveira MD Primary Care Provider [phone] Encounter Details Date Type Department Care Team (Late st Contact Info) Description 03/06/2003 Results Only [facility] [place] [facility] conversion [address] [place] [address] Lolly Oliveira MD [address] [place], [place] [id number] Social History Tobacco Use Types Packs/Day Years [...] MD PATHOLOGY ORDERABLES Performing Organization Address City/State/[facility] Co de Phone Number [facility] [address] [place] [address] documented in this encounter Visit Diagnoses Not on filedocumented in this encounter Care Teams Lead Radiation Therapist Relationship Specialty Start Date End Date Lolly Oliveira MD [address] [place] [address] PCP - General 11/13/08 documented as of this encounter
--- OUTSIDE RECORDS SUMMARY | 2023-11-03 11:22 | XMS_ITS | Encounter Summary ---
Author Organization [place] [address] Care Team Providers Care Barrel Header Name Role Phone Lolly Oliveira MD Primary Care Provider [phone] Encounter Details Date Type Department Care Team [...] EST Hospital Encounter Non-Invasive [place] [address] Arrived documented as of this encounter Visit Diagnoses Not on filedocumented in this encounter Care Teams Barrel Header Relationship Specialty Start Date End Date Lolly Oliveira MD [address] [place] [address] PCP - General 07/17/13 documented as of this encounter
--- OUTSIDE RECORDS SUMMARY | 2023-11-03 11:22 | XMS_ITS | Encounter Summary ---
Author Organization [facility] Address [address] [place] [address] Care Team Providers Care Real Estate Coordinator Name Role Phone Lolly Oliveira MD Primary Care Provider [phone] Encounter Details Date Type Department Care Team (Late st Contact Info) Description 04/12/2007 Results Only [facility] conversion [address] [place] [address] Lolly Oliveira MD [address] [place], [place] [id number] Social History Tobacco Use Types Packs/Day Years [...] ? JING ALVARENGA ? Accession #: ? [id number] : ? 1950 (Age: 56) ??F ?Collect Date: ? 04/12/2007 Location: ? [facility] ? Receive Date: ? 04/13/2007 Provider: ?LOLLY OLIVEIRA MD Copy to: ? Specimen/Source: ?ThinPrep Pap Test, Cervix/Endocervix, processed on [employer] ThinPrep Imaging System, with manual evaluation Last [...] Oliveira MD PATHOLOGY ORDERABLES [facility] [address] [place] [address] documented in this encounter Visit Diagnoses Not on filedocumented in this encounter Care Teams Real Estate Coordinator Relationship Specialty Start Date End Date Lolly Oliveira MD [address] [place] [address] PCP - General 11/13/08 documented as of this encounter
--- OUTSIDE RECORDS SUMMARY | 2023-11-03 11:22 | XMS_ITS | Encounter Summary ---
Author Organization [facility] Address [address] [place] [address] Care Team Providers Care Tin Can Laborer Name Role Phone Lolly Oliveira MD Primary Care Provider [phone] Encounter Details Date Type Department Care Team (Late st Contact Info) Description 04/17/2005 Results Only [facility] conversion [address] [place] [address] Lolly Oliveira MD [address] [place], [place] [id number] Social History Tobacco Use Types Packs/Day Years [...] ? JING ALVARENGA ? Accession #: ? [id number] : ? 1950 (Age: 54) ??F ?Collect Date: ? 04/17/2005 Location: ? [facility] ? Receive Date: ? 04/21/2005 Provider: ?LOLLY OLIVEIRA MD Copy to: ? Specimen/Source: ?ThinPrep Pap Test, Cervix/Endocervix, processed on ImmunovaccinePrep Imaging System, with manual evaluation Last Menstrual Period: ? Treatment History: ? Cone biopsy: 25 years ago ? SPECIMEN ADEQUACY ? Satisfactory for Evaluation - transformation zone component present GENERAL CATEGORIZATION ? Negative for Intraepithelial Lesion or Malignancy ? Document reviewed and electronically signed by: ? BERHANE Faulkner(ASCP) ? Report Date: ??04/23/2005 10:56 End of Report OTV[facility] BLANCO 04/17/2005 04/21/2005 Lolly Oliveira MD PATHOLOGY ORDERABLES [facility] [address] [place] [address] documented in this encounter Visit Diagnoses Not on filedocumented in this encounter Care Teams Tin Can Laborer Relationship Specialty Start Date End Date Lolly Oliveira MD [address] [place] [address] PCP - General 11/13/08 documented as of this encounter
--- OUTSIDE RECORDS SUMMARY | 2023-11-03 11:22 | XMS_ITS | Encounter Summary ---
Author Organization [facility] [place] [address] Care Team Providers Care Clinical Services Manager Name Role Phone Lolly Oliveira MD Primary Care Provider [phone] Encounter Details Date Type Department Care Team (Late st Contact Info) Description 05/18/2023 Telephone Dermatology at [address] [address] Nora Meredith LPN Social History [...] st Contact Info) Description 01/16/2024 10:00 AM [facility] Hospital Encounter Non-[place] [address] Arrived documented as of this encounter Visit Diagnoses Not on filedocumented in this encounter Care Teams Clinical Services Manager Relationship Specialty Start Date End Date Lolly Oliveira MD [address] [place] [address] PCP - General 07/17/13 documented as of this encounter
--- OUTSIDE RECORDS SUMMARY | 2023-11-03 11:22 | XMS_ITS | Encounter Summary ---
Author Organization [facility] [place] [address] Care Team Providers Care Xm1 Tank Driver Name Role Phone Lolly Oliveira MD Primary Care Provider Encounter Details Date Type Department Care Team (Latest Contact Info) Description 01/21/2023 10:00 AM EST - 01/21/2023 11:59 PM EST Hospital Encounter [place] [phone] Discharge Disposition: Home Social History Tobacco Use [...] with spacer fluticasone propionate (Flonase) 50 mcg/actuation [place], Suspension 1 spray by Each Nare route [...] AM EST Hospital Encounter Non-[place] [address] Arrived documented as of this [...] on filedocumented in this encounter Care Teams Xm1 Tank Driver Relationship Specialty Start Date End Date Lolly Oliveira MD [address] [place] [address] PCP - General 07/17/13 documented as of this encounter
--- OUTSIDE RECORDS SUMMARY | 2023-11-03 11:22 | XMS_ITS | Encounter Summary ---
Author Organization [place] [address] Care Team Providers Care Loading Machine Operator Helper Name Role Phone Lolly Oliveira MD Primary Care Provider [phone] Encounter Details Date Type Department Care Team (Latest Contact Info) Description 07/20/2023 10:00 AM EDT - 07/20/2023 11:59 PM EDT Hospital Encounter [place] [address] Discharge Disposition: Home Social History Tobacco Use [...] with spacer fluticasone propionate (Flonase) 50 mcg/actuation [place], Suspension 1 spray by Each Nare route daily as needed. documented as of this encounter Plan of Treatment Upcoming Encounters Date Type Department Care Team (Late st Contact Info) Description 01/16/2024 10:00 AM [facility] Hospital Encounter [place] [address] Arrived documented as of this encounter Procedures [...] on filedocumented in this encounter Care Teams Loading Machine Operator Helper Relationship Specialty Start Date End Date Lolly Oliveira MD [address] [place] [address] PCP - General 07/17/13 documented as of this encounter
--- OUTSIDE RECORDS SUMMARY | 2023-11-03 11:22 | XMS_ITS | Encounter Summary ---
Author Organization [facility] Address [address] [place] [address] Care Team Providers Care Hop Trainer Name Role Phone Lolly Oliveira MD Primary Care Provider [phone] Encounter Details Date Type Department Care Team (Late st Contact Info) Description 02/20/2020 Lab Requisition [facility] Pathology & Laboratory Medicine - [address] [phone] Outr Resulting Lab, Provider Social History Tobacco [...] in accordance with CLIA regulations, [employer] (CAP) guidelines (May 25, 2019), and FDA guidance (May 06, 2019). This test is only for use under the Food and Drug Administration's Emergency Use Authorization. Swab ENTIRE NASOPHARYNX / Unknown 02/19/2020 16:30 EST 02/20/2020 16:09 EST Provider Outr Resulting Lab MICROBIOLOGY - GENERAL ORDERABLES [facility] [place], [place] * COVID-19 TESTING (02/19/2020 16:30 EST) COVID-19 rt-PCR Result NEGATIVE Negative 02/22/2020 23:41 EST [facility] Comment: 2019-novel Coronavirus (2019-nCoV) not detected [...] in accordance with CLIA regulations, [employer] [place] (CAP) guidelines (May 25, 2019), and FDA guidance (May 06, 2019). This test is only for use under the Food and Drug Administration's Emergency Use Authorization. Performing Lab [facility] 02/22/2020 23:41 EST [facility] Swab 02/19/2020 16:3 0 EST 02/20/2020 16:09 EST Provider Outr Resulting Lab MICROBIOLOGY - GENERAL ORDERABLES [facility] [address] [place] [address] [facility] [place], [place] documented in this encounter Visit Diagnoses Not on filedocumented in this encounter Care Teams Hop Trainer Relationship Specialty Start Date End Date Lolly Oliveira MD [address] [place] [address] PCP - General 11/13/08 documented as of this encounter
--- OUTSIDE RECORDS SUMMARY | 2023-11-03 11:22 | XMS_ITS | Encounter Summary ---
Author Organization [facility] Address [facility] [place] [address] Care Team Providers Care Project Product Manager Name Role Phone Lolly Oliveira MD Primary Care Provider [phone] Encounter Details Date Type Department Care Team (Late st Contact Info) Description 05/03/2023 Telephone Cardiology at [address] [phone] Lalit Mcmahon MD [facility] [place] [address] Social History Tobacco Use Types Packs/Day Years [...] AM EST Hospital Encounter [place] [address] Arrived documented as of this encounter Visit Diagnoses Not on filedocumented in this encounter Care Teams Project Product Manager Relationship Specialty Start Date End Date Lolly Oliveira MD [address] [place] [address] PCP - General 07/17/13 documented as of this encounter
--- OUTSIDE RECORDS SUMMARY | 2023-11-03 11:22 | XMS_ITS | Encounter Summary ---
Author Organization [facility] [place] [address] Care Team Providers Care Motion Picture Cameraman Name Role Phone Lolly Oliveira MD Primary Care Provider [phone] Encounter Details Date Type Department Care Team (Late st Contact Info) Description 03/17/2023 Telephone Cardiology at [address] [phone] Saranya Ma Social History Tobacco Use Types [...] AM EST Echo order faxed to [facility] at [phone]. No Prior auth needed. Ref #:[id number]. Saranya Ma Sr. Clinical Procedure [place]/Finance Executive documented in this encounter Plan of Treatment Upcoming Encounters Date Type Department Care Team (Late st Contact Info) Description 01/16/2024 10:00 AM [facility] Hospital Encounter [place] [address] Arrived documented as of this encounter Visit Diagnoses Not on filedocumented in this encounter Care Teams Motion Picture Cameraman Relationship Specialty Start Date End Date Lolly Oliveira MD [address] [place] [address] PCP - General 07/17/13 documented as of this encounter
--- OUTSIDE RECORDS SUMMARY | 2023-11-03 11:22 | XMS_ITS | Data Portability ---
Author Organization [facility], [facility] [place] [address] Care Team Providers Care Hotel Or Motel Cleaning Supervisor Name Role Phone [facility] OFF[facility] Optometris t ZAMZAM BOSS [employer] JAYCOB KHAN Orthopedic Surgeon ROXANA KELLEY International Logistics Analyst FLOWER RAMSEY Dentist Assessment Encounter Date Assessment [...] copy of PPP at conclusion of visit. [email or web address] Not available 04/20/2023 07:44:20 Plan of Treatment Reminders Order Date Submit Date Provider Last Modified By Organization Details Last Modified Time Details Appointments Follow Up 2023 07:30A M Not available Not available Not available Lab None recorded. Referral podiatris t referral 2023 024 [email or web address] [facility], [address] [place] [address] , [place], [address], 09/24/2023 13:45:43 physical therapist referral 2023 024 Chinedu Amato PT, [address], [place], [address], 10/18/2023 12:01:58 Procedures None recorded. Surgeries None recorded. Imaging None recorded. Medication Orders Jardiance 10 mg tablet 2023 024 [facility], [address] [place] [address], [id number], 05/24/2023 18:32:26 lisinopri l 20 mg tablet 2023 024 [facility], [address] [place] [address], [id number], 05/24/2023 18:32:26 meclizine 25 mg tablet 2023 024 [facility], [address] [place] [address], [id number], 09/01/2023 13:22:14 Patient TargetsNo targets recorded. Patient Instructions Encounter Date Encounter Id Patient Instructions Last Modified By Organization Details Last Modified Time 05/21/2023 [id number] Discussed and explained advance directives such as standard forms to the {{patient caregiv er patient and caregiver}}. Face to face discussion lasted for a duration of ___ minutes. Not available 04/20/2023 07:44:20 09/01/2023 [id number] 1. The earwax from your ears were [...] Not available 09/01/2023 13:23:33 Reason for Referral Manufacturing Development Engineer Referral for Onyc homycosis onychomycosis, calluses Referring Physician: Ju Cortez, [facility] Medicine, Encounter Date: 05/21/2023 Physical Therapist Referral for Vertigo Referring Physician: Jessica Wallis, [facility] Medicine, Encounter Date: 09/01/2023 Results Created Date Observation Date Name Description Value Unit Range Abnormal Flag Note LastModifiedBy Organization Detail LastModifiedTime 05/03/1905/03/2023 ultra sound imagi ng repor t Ashley wasserman Name: Naomi Mott Unit #: [id number] Loc: DI Orderi ng Provid er: Lalit Mcmahon M.D. 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 Thank- you. rod [address] [place], [address] 05/03/2023 18:12:07 05/13/19 24 05/13/2023 josh robertson am EKG ASHLEY Wasserman NAME: Naomi Mott UNIT #: [id number] ORDERRadha GARZA ER: Lalit Mcmahon M.D. ACCOUN T #: [id number] PRIMAR Y CARE PROVID ER: JUSTYN Suresh MD, JU DATE/T DONNA OF SE RVICE: 1252 : 1950 KELSI MOYER LOCATI ON: DI.CAR D ------ ------ --- APPROV ED REPORT ------ ------ -- Exam: Restin g ECG Reason for Exam: LBBB, CMP Ashley wasserman Locati on: O HR:73 bpm ECG Measur ements Heart Rate 73 AXIS CA 27 P 111 QRSd 115 QRS 80 [...] - E-Sign Date: E-Sign Time: [email or web address] [place], [address] 09/13/2023 15:45:54 06/28/19 24 01/12/2023 x-ray imagi raul wasserman Name: Naomi Mott Unit #: [id number] Loc: ALIZA Orderi ng Provid er: Karan Freire M.D. Accoun t #: [id number] Status : DEP [facility] Primar y Care Provid er: Janice Pérez [...] Hurst M.D. 1401 140 Transc ribed By: Marcia Hurst MD 140 This is privil eged, confid ential inform ation intend ed only for the provid er named. Any use or distri bution by any person other than this provid er is strict ly prohib ited. If you receiv e this report in error, please notify us immkrupa stapleton at [phone] and return the origin al report to us at the addres s above. Thank- you. rod [facility] [address], [place], [address] 06/29/2023 07:24:17 Result Notes None recorded. Problems Name Problem SNOMED Code Status Onset Date Resolution Date Notes Provider Name and Address Organization Details Recorded Time Asthma 304735453 Active 200204/14/19 22 - Comments only - Ju Cortez MD - Not too much of an issue recently . She does keep albutero l inhaler availabl e if needed. Problem Code: 493.90; Problem Code Type: ICD-9; Not Available [facility] 3 04:01:51 Atypical glandula r cells on cervical Papanico laou smear 834998759 Active 2007 Problem Code: 795.00; Problem Code Type: ICD-9; Not Available [facility] 3 04:01:51 Dizzines s and giddines s 802121978 Active 201404/14/19 22 - Comments only - Ju Cortez MD - , Intermit tent. She has learned to deal with it using the Jd's maneuver . She will call if any signific ant worsenin g. Problem Code: R42; Problem Code Type: ICD-10; Not Available [facility] 3 04:01:52 Essentia l hyperten karlene 27139021 Active 201401/12/20 22 - Comments only - Ju Cortez MD - Blood pressure well controll ed with the lisinopr il and Toprol. Problem Code: I10; Problem Code Type: ICD-10; Not Available [facility] 3 04:01:52 Adult health examinat ion Active 201504/16/19 23 - Comments only - Ju Cortez MD - UTD with mammo, has a DEXA schedule d ( dx of osteopor osis), will check an A1c. Problem Code: Z00.00; Problem Code Type: ICD-10; Not Available [facility] 3 04:01:52 Disorder of skin and/or subcutan eous tissue 33877411 Active 201509/17/19 16 - Comments only - Ju Cortez MD - the lesions on the buttucks appear to have been possible boils that are now healing vs atopic rxn resolvin g. At this point no tx needed. If worsenin g/recurr ing she will call. I don't believe these are related to rubbing while walking Problem Code: L98.9; Problem Code Type: ICD-10; Not Available [facility] 3 04:01:52 Pain in right hip joint 38975438343 9102 Completed 201512/02/2022 Problem Code: M25.551; Problem Code Type: ICD-10; Not Available [facility] 3 04:01:52 Onychomy cosis due to dermatop hyte 134411982 Active 201609/23/19 17 - Comments only - Ju Cortez MD - she is going to contact podiatry to find out if they have any other topical txs that might work. She is not interest ed in systemic tx Problem Code: B35.1; Problem Code Type: ICD-10; Not Available [facility] 3 04:01:52 Hearing loss of right ear 396807693 Completed 201712/10/2017 11/27/19 18 - Comments only - Naseem Gil PA-C - Cerumino sis treated in-offic e today. If hearing fails to be fully restored over the course of the weekend, will consider for ENT refer for formal audiolog y assessme nt. Problem Code: H91.91; Problem Code Type: ICD-10; Not Available [facility] 3 04:01:52 Abnormal weight gain 432610576 Active 2018 Problem Code: R63.5; Problem Code Type: ICD-10; Not Available [facility] 3 04:01:53 Disorder of hip joint 334789811 Active 201801/12/20 22 - Comments only - Ju Cortez MD - ,rt. For which she would like a total hip replacem ent. 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 She is trying to continue being as mobile as she can comforta silva. Problem Code: M12.859; Problem Code Type: ICD-10; Not Available [facility] 3 04:01:53 Acute vaginiti s 73006303 Completed 201801/04/2019 12/22/19 19 - Comments only - Naseem Gil PA-C - Will await resutls of today's collecte d VPS to determin e indicati on for further treatmen t. Problem Code: N76.0; Problem Code Type: ICD-10; Not Available [facility] 3 04:01:53 Intertri go 41458968 Completed 201801/04/2019 12/22/19 19 - Comments only - Naseem Gil PA-C - Patient encourag ed to keep skin folds as clean and dry as possible to avoid reactiva tion (suggest ed hairspring assembler after bathing) . Addition ally, could consider to use OTC DESITIN for acute skin healing. Problem Code: L30.4; Problem Code Type: ICD-10; Not Available [facility] 3 04:01:53 Pre-surg cecilia evaluati on Completed 201801/23/2019 01/10/20 19 - Comments only - Naseem Gil PA-C - Today's EKG shows stable LBBB (compare d to study 10/19/14) with NSR at 69bpm. Patient to f/u for pre-oper ative laborato ry testing and anesthes ia consult as schedule d 01/17/19 . Problem Code: Z01.818; Problem Code Type: ICD-10; Not Available [facility] 3 04:01:53 Hip joint prosthes is present 880273482 Active 2018 Problem Code: Z96.642; Problem Code Type: ICD-10; Not Available [facility] 3 04:01:53 Dyspnea 221819570 Completed 201903/27/2019 03/13/19 20 - Comments only [...] R06.02; Problem Code Type: ICD-10; Not Available [facility] 3 04:01:54 Edema 009905346 Completed 201906/21/2019 06/07/19 20 - Comments only - Naseem Gil PA-C - Patient reassure d nothing concerni ng on today's PX to raise suspicio n for DVT. Suspect minor calf muscle strain. OK to continue to use compress ion stocking s for symtpoma tic relief and consider calf stretche s. F/U PRN. 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 202004/16/19 23 - Comments only - Ju Cortez MD - being followed by mika mercado under reasonab le control with the UV tx and prn clobetas ol cream Problem Code: L40.4; Problem Code Type: ICD-10; Not Available [facility] 3 04:01:54 Stool finding 129240638 Active 2021 Problem Code: R19.5; Problem Code Type: ICD-10; Not Available [facility] 3 04:01:54 Speciali zed medical examinat ion Active 2021 Problem Code: Z01.89; Problem Code Type: ICD-10; Not Available [facility] 3 04:01:54 Edema 429771678 Active 2021 Problem Code: R60.9; Problem Code Type: ICD-10; Not Available [facility] 3 04:01:55 Screenin g mammogra phy Active 2021 Problem Code: Z12.31; Problem Code Type: ICD-10; Not Available [facility] 3 04:01:55 Abnormal finding on evaluati on procedur e 954206716 Active 2021 Problem Code: R89.9; Problem Code Type: ICD-10; Not Available [facility] 3 04:01:55 Dyspnea 363031029 Active 2021 Problem Code: R06.02; Problem Code Type: ICD-10; Not Available [facility] 3 04:01:55 Cardiomy opathy 54262621 Active 202109/05/19 23 - Comments only - Ju Cortez MD - Clinical ly remainin g stable on the lisinopr il, furosemi de 20 mg daily, Jardianc e, Toprol, rosuvast atin, aspirin. ICD/pace maker in place. Followin g with cardiolo gy. She is walking/ exercisi ng regularl y. Problem Code: I42.9; Problem Code Type: ICD-10; Not Available [facility] 3 04:01:55 Heart failure 62885269 Active 2021 Problem Code: I50.9; Problem Code Type: ICD-10; Not Available [facility] 3 04:01:56 Family history of breast cancer 413238548 Active 2021 Problem Code: Z80.3; Problem Code Type: ICD-10; Not Available [facility] 3 04:01:56 Burn 840462107 Active 202101/12/20 22 - Comments only - uJ Cortez MD - Healing slowly, no evidence of infectio n. If she has any further question s regardin g this she will let us know. Problem Code: T30.0; Problem Code Type: ICD-10; Not Available [facility] 3 04:01:56 Senile osteopor osis 80714985 Active 202101/12/20 22 - Comments only - Ju Cortez MD - Due for a repeat DEXA scan. Ordered. She does take an over-the -counter vitamin D suppleme nt I believe. Problem Code: M81.0; Problem Code Type: ICD-10; Not Available [facility] 3 04:01:56 Hyperlip idemia 26938304 Active 202204/16/19 23 - Comments only - Ju Cortez MD - will check LFTs, CPK, on rosuvast atin 5mg daily which has brought her lipids into goal range. Problem Code: E78.5; Problem Code Type: ICD-10; Not Available [facility] 3 04:01:56 Adjustme nt disorder 54195364 Active 2022 Problem Code: F43.20; Problem Code Type: ICD-10; Not Available [facility] 3 04:01:56 Dysuria 88081292 Active 2022 Problem Code: R30.9; Problem Code Type: ICD-10; Not Available [facility] 3 04:01:57 Itching of skin 009216308 Active 2022 Problem Code: L29.8; Problem Code Type: ICD-10; Not Available [facility] 3 04:01:57 Automati c implanta ble cardiac defibril lator in situ 141194209 Active 2022 Problem Code: Z95.810; Problem Code Type: ICD-10; Not Available [facility] 3 04:01:57 Glycosur ia 95532399 Active 202209/05/19 23 - Comments only - Ju Cortez MD - , No prior diagnosi s of diabetes . She is developi ng diabetes that could be number perineal symptoms . Problem Code: R81; Problem Code Type: ICD-10; Not Available [facility] 3 04:01:57 Vulval and/or perineal noninfla mmatory disorder s 830012313 Active 202209/05/19 23 - Comments only - Ju Cortez MD - , Predomin antly itchy. Last [...] N90.89; Problem Code Type: ICD-10; Not Available [facility] 3 04:01:57 Allergic contact dermatit is 786594411 Completed 202012/02/2022 Problem Code: L23.9; Problem Code Type: ICD-10; Not Available [facility] 3 04:02:02 Essentia l hyperten karlene 67611638 Completed 200107/25/2015 Problem Code: 401.9; Problem Code Type: ICD-9; Not Available [facility] 3 04:02:03 Polyp of colon 03627561 Completed 201006/05/2021 Problem Code: K63.5; Problem Code Type: ICD-10; Not Available [facility] 3 04:02:03 History of vertigo 772131764 Completed 201012/02/2022 01/11/20 15 - Improved - Ju Cortez MD - she will continue with Jd's manoever PRN and call if worsenin g/nothin g helping Not Available [facility] 3 04:02:04 Acute sinusiti s 46625714 Completed 201912/16/2020 Problem Code: J01.90; Problem Code Type: ICD-10; Not Available [facility] 3 04:02:05 Pain of right lower leg 90273313999 9108 Completed 202101/11/2022 Problem Code: M79.661; Problem Code Type: ICD-10; Not Available [facility] 3 04:02:06 Hyperlip idemia 22519578 Completed 200910/19/2017 Not Available [facility] 3 04:02:07 Dizzines s and giddines s 164690063 Completed 201408/14/2019 Problem Code: R42; Problem Code Type: ICD-10; Not Available [facility] 3 04:02:07 Hyperten sive disorder 11950171 Completed 201011/03/2018 Not Available [facility] 3 04:02:09 Diarrhea 54630789 Completed 201610/19/2017 Problem Code: R19.7; Problem Code Type: ICD-10; Not Available [facility] 3 04:02:10 Anemia 123672965 Completed 201901/11/2022 Problem Code: D64.9; Problem Code Type: ICD-10; Not Available [facility] 3 04:02:10 [place] - lesion 292762766 Active 2022 Problem Code: L84; Problem Code Type: ICD-10; Not Available [facility] 4 05:37:51 Foot callus 639638405 Active [address], [place] [address] , [facility] 4 11:29:32 Onychomy cosis 837291834 Active [address], [address] , [facility] 4 11:29:44 Vertigo 466276396 Active [address], [place] [id number] , [facility] 4 13:20:57 Impacted cerumen of bilatera l ears 79404932307 [address]3692 Active [address], [facility] [address] , [facility] 4 13:21:03 Notes:*Problem Name: Colonos copy 2006 - Hyperplastic Polyp *ICD-10 Codes: *Problem Status: inactive *Comments: *Note Date: 04/29/2010 *Problem Name: Rt Breast Bx 2014 - Adenosis *ICD-10 Codes: *Problem Status: active *Comments: *Note Date: 08/01/2013 Problem Notes Documentation Provider Name and Address Organization Details Recorded Time Cardiology Note : Cardiology Office Visit PATIENT NAME: Luna Mott UNIT #: [id number] ADMITTING PROVIDER: Zamzam Boss M.D. ACCOUNT #: [id number] PRIMARY CARE PROVIDER: JU CORTEZ MD DATE OF ADMIT: 08/30/23 : 1950 Assessment Plan (1) ICD (implantable cardioverter-defibrillator ) in place: Followed in device clinic (2) Cardiomyopathy: Last EF was 50 to 55%. Patient has no symptoms or findings of heart failure Plan We reviewed her medical regimen, which is appropriate. She is going to monitor her weights, continue diuretic every other day as advised by primary care. Will plan routine follow-up in 1 year Plan Detail Follow Up: 1 Year Total time on date of encounter, (ywva-vr-cicy and non mxoy-hb-mocx) (minutes): 19 Time was spent: reviewing prior notes and diagnostics, providing direct patient care, documenting today's visit, updating the EMR and coordinating care HPI This 73-year-old woman presents for cardiac follow-up. She has a history of a nonischemic cardiomyopathy as well as a defibrillator. She reports that she has had a good year since her last visit. She had her right hip replaced; this is doing well. She continues to go to cardiac rehab 2 days/week and also does other exercises, walks and mows her lawn. She has had no shortness of breath, no edema, no chest pain dizziness or palpitations. She complains of weight gain which is frustrating Review of Systems Card: Reports as per HPI and no additional complaints; Denies chest pain, leg edema, lightheadedness, radiating jaw, neck or arm pain, palpitations or dyspnea Resp: Denies dyspnea Endo: Denies palpitations Exam Const Other: Obese looks younger than stated age no acute distress Neck Other: Unable to assess JVP carotid pulsations are normal no bruits Resp Auscultation: clear to auscultation bilaterally Cardio Other: Heart is regular no murmur or gallop Skin Other: Warm and dry Extrem Other: No peripheral edema Intake Vital Signs 08/30/23 10:46 Weight 100.244 kg BP 117/64 Blood Pressure Location Lt brachial Position Sitting Respiration 20 Pulse 65 Pulse Source Monitor Pulse Oximetry (%) 99 Oxygen Delivery Method room air Intake Visit Reasons: 1 yr f/u Quality Data: Mammogram 11/10/22 Colonoscopy 05/27/21 Nurse Note: 1 yr f/u ICD, cardiomyopathy. Echo done 05/03/23 with EF 45 (visually 55). Pt attends Phase 3 cardiac rehab. She is not having issues with SOB. Wants to reveiw her cardiac meds to see if she needs them all. Is taking Lasix and KCL QOD, wt is up 11 lbs in one year. She states she is trying to loose wt but t is hard. RH Molecular Pathologist Required: No Is patient in pain?: No Allergies Allergy/AdvReac Type Severity Reaction Status Date / Time Sulfa (Sulfonamide AdvReac Intermediate speeds up Verified 05/26/23 09:44 Antibiotics) heartrate Home Medications Medication Instructions Recorded Confirmed Type lisinopril 20 mg tablet 20 mg PO DAILY 01/20/16 08/30/23 History turmeric root extract 500 mg 500 mg PO DAILY 09/26/18 08/30/23 History capsule albuterol sulfate 90 mcg/actuation 2 puff inhalation Q6H PRN 04/10/21 08/30/23 History aerosol inhaler fluticasone propionate 50 1 spray intranasal DAILY 04/10/21 08/30/23 History mcg/actuation nasal spray,suspension aspirin 81 mg tablet,delayed 81 mg PO DAILY 10/30/21 08/30/23 History release (Adult Aspirin Regimen) potassium chloride 10 mEq 10 meq PO DAILY 11/21/21 08/30/23 History capsule,extended release rosuvastatin 5 mg tablet 5 mg PO HS 11/21/21 08/30/23 History empagliflozin 10 mg tablet 10 mg PO DAILY 02/09/22 08/30/23 History (Jardiance) clobetasol 0.05 % topical cream 1 applic topical BID 04/17/22 08/30/23 History cholecalciferol (vitamin D3) 50 50 mcg PO DAILY 04/20/22 08/30/23 History mcg (2,000 unit) capsule (Vitamin D3) furosemide 20 mg tablet (Lasix) 20 mg PO DAILY 11/11/22 08/30/23 History metoprolol succinate 50 mg 50 mg PO HS 11/26/22 08/30/23 History tablet,extended release 24 hr (Toprol XL) acetaminophen 500 mg tablet 1,000 mg (2 x 500 mg) PO Q8H PRN 01/12/23 08/30/23 Rx pain #90 tabs PFSH All Active Problems (Updated 08/30/23 @ 11:05 by Zamzam Boss MD) Surgical wound dehiscence (Acute) History of total right hip replacement (Acute 01/12/23) ICD (implantable cardioverter-defibrillator ) in place (Acute) [facility] 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 Khan History of right breast biopsy History of hip replacement Hx of colonoscopy ( 05/27/21) Hx of cone biopsy of cervix Social History Smoking/Tobacco Use Status: Never Smoking risk assessment performed?: Yes Alcohol Intake: current Alcohol Intake frequency: holidays/special occasions only Alcohol type: wine Drug use: Never Substance use type: does not use Household members: none Housing: house Current gender identity: female What is your relationship status?: Panel score (0-1 are the most socially isolated patients): 0 Do you feel safe at home: Yes Additional Social history: Lives alone Coding Level of Care Code Est Patient Level 3 Diagnoses ICD (implantable cardioverter-defibrillator ) in place Z95.810 Cardiomyopathy, unspecified type I42.9 Cardiomyopathy type: unspecified cc: JU CORTEZ MD Dictated by: BERTRAND MENDOZA,ZAMZAM FLORES Dictated: 08/30/23 Time : 1042 Date: 08/30/23 110 Date: Date: Transcribed Date: 08/30/23 Transcribed Time: 1042 By: RAMAN This is privileged, confidential information, intended only for the provider named. Any use or distribution by any person other than this provider is strictly prohibited. If you receive this rep ort in error, please notify us immediately at [phone] and return the original report to us at the address above. Thank you. SUSAN juan, [facility] 09/13/2023 15:45:17 Procedures Surgical History Date Name Laterality Status Provider Name and Address Organization Details Recorded Time 4 Cerumen Removal completed [address], [place], [address], [facility] 09/01/2023 13:52:38 3 total replacement of right hip joint completed Cornelia juan, [facility] 03/31/2023 17:11:24 Imaging Results Imaging Date Name Status LastModified by Organization Details LastModified Time 05/03/2023 ultrasound imaging report completed [address] [place], [address] 05/03/2023 18:12:07 05/13/2023 electrocardiogram completed [address] [place] [address] [place], [address] 09/13/2023 15:45:54 01/12/2023 x-ray imaging report completed [facility] [address] [place], [address] 06/29/2023 07:24:17 Procedure Notes None recorded. Medical Equipment None Reported. Allergies Allergen ID Allergen Name Allergen Category Reaction Reaction Severity Criticality Documentation Date Start Date Code Code System Note Provider Name and Address Organization Details Recorded Time 60350 sulfadiaz ine medicatio n tachycard ia mild Not available 01/15/20232001 91132 RxNorm Tachy cardi a Not Available [facility] 16:22:29 Medications Name Sig Start Date Stop [...] % 96 % 65 /min 38.7 kg/m2 93337.8 3 g 128 mm[Hg] 72 mm[Hg] Davey Allen MA [facility] 4 10:27:29 Date Recorded Body height Body mass index (BMI) Body weight Body temperature Respiratory rate Oxygen saturation Oxygen saturation in Arterial blood by Pulse oximetry Heart rate Systolic blood pressure Diastolic blood pressure Provider Name and Address Organization Details Last Updated DateTime 4 159.385 cm 38.7 kg/m2 78177.8 2 g 97.1 [degF] 17 /min 95 % 95 % 60 /min 139 mm[Hg] 69 mm[Hg] Vonda Fields RN [facility] 4 12:25:13 Social History Question Answer Notes LastModified by Organizat ion Details LastModified Time Tobacco Smoking Status Never Smoker Davey Allen MA null, [facility] 05/21/2023 10:57:21 Would You Say That, In General, Your Health Is Very Good [email or web address] Information not available 05/21/2023 How Often Does Anyone, Including Family, Physically Hurt You? Never [email or web address] Information not available 05/21/2023 How Often Does Anyone, Including Family, Insult Or Talk Down To You? Never [email or web address] Information no t available 05/21/2023 How Often Does Anyone, Including Family, Threaten You With Harm? Never [email or web address] Information not available 05/21/2023 How Often Does Anyone, Including Family, Scream Or Curse At You? Never [email or web address] Information not available 05/21/2023 Within The Past 12 Months, You Worried That Your Food Would Run Out Before You Got Money To Buy More. Never True [email or web address] Information n ot available 05/21/2023 Within The Past 12 Months, The Food You Bought Just Didn't Last And You Didn't Have Money To Get More. Never True [email or web address] Information n ot available 05/21/2023 How Hard Is It For You To Pay For The Very Basics Like Food, Housing, Medical Care, And Heating? Would You Say It Is: Not Hard At All [email or web address] Information not available 05/21/2023 In The Past 12 Months, Has Lack Of Reliable Transportation Kept You From Medical Appointments, Meetings, Work Or From Getting Things Needed For Daily Living? No [email or web address] Information not available 05/21/2023 What Is Your Housing Situation Today? I Have Housing. [email or web address] Information not available 05/21/2023 How Often In The Past Year Have You Used Marijuana (including Smoking, Vaping, Dabbing, Or Edibles)? Never Information not available 05/21/2023 How Often In The Past Year Have You Used Prescription Medications That Were Not Prescribed To You? Never [email or web address] Information n ot available 05/21/2023 How Often In The Past Year Have You Taken Your Own Prescription Medication More Than The Way It Was Prescribed Or For Different Reasons Than Its Intended Purpose? Never [email or web address] Information no t available 05/21/2023 How Often In The Past Year Have You Used Other Drugs (for Example, Heroin, Cocaine, Meth, Salvia, Inhalants)? Never [email or web address] Information not available 05/21/2023 Have You Ever Used IV Drugs? No [email or web address] Information not available 05/21/2023 What Matters Most To You? Staying Healthy, Keeping Active. Getting Exercise And Losing Some Weight [email or web address] Information not available 05/21/2023 During The Past Four Weeks Has Your Physical And Emotional Health Limited Your Social Activities With Family And Friends, Neighbors, Or Groups? Not At All [email or web address] Information not available 05/21/2023 During The Past Four Weeks, Was Someone Available To Help You If You Needed And Wanted Help? (For Example, If You [place] Very Nervous, Lonely, Or Blue; Got Sick And Had To Stay In Bed; Needed Someone To Talk To; Needed Help With Daily Chores; Or Needed Help Just Taking Care Of Yourself.) No- Not At All [email or web address] Information n ot available 05/21/2023 During The Past Four Weeks, What Was The Hardest Physical Activity You Could Do For At Least 2 Minutes? Moderate Information not available 05/21/2023 Can You Get To Places Out Of Walking Distance Without Help? (For Example, Can You Travel Alone On Buses Or Taxis, Or Drive Your Own Car?) Yes [email or web address] Information not available 05/21/2023 Can You Go Shopping For Groceries Or Clothes Without Someone? s Help? Yes [email or web address] Information not available 05/21/2023 Can You Prepare Your Own Meals? Yes [email or web address] Information not available 05/21/2023 Can You Do Your Housework Without Help? Yes [email or web address] Information not available 05/21/2023 Because Of Any Health Problems, Do You Need The Help Of Another Person With Your Personal Care Needs Such As Eating, Bathing, Dressing, Or Getting Around The House? No Information not available 05/21/2023 Can You Handle Your Own Money Without Help? Yes Information not available 05/21/2023 Are You Having Difficulties Driving Your Car? No [email or web address] Information no t available 05/21/2023 Do You Always Fasten Your Seat Belt When You Are In A Car? Yes- Usually yesfndki66 Information not available 05/21/2023 How Often During The Past Four Weeks Have You Been Bothered By Any Of The Following Problems? Falling Or Dizzy When Standing Up? Never Information not available 05/21/2023 Sexual Problems? Never [email or web address] Informat ion not available 05/21/2023 Trouble Eating Well? Sometimes [email or web address] Information not available 05/21/2023 Teeth Or Denture Problems? Sometimes [email or web address] Information not available 05/21/2023 Problems Using The Telephone? Never [email or web address] Information not available 05/21/2023 Tiredness Or Fatigue? Sometimes [email or web address] Information not available 05/21/2023 Have You Had 2 Or More Falls Or Sustained An Injury With A Fall In The Last Year? No [email or web address] Information no t available 05/21/2023 Do You Have Difficulty With Walking Or Balance? No [email or web address] Information not available 05/21/2023 Do You Currently Use A Hearing Device? No [email or web address] Information not available 05/21/2023 Do You Currently Have Any Trouble With Your Vision? Yes [email or web address] Information no t available 05/21/2023 Do You Exercise For About 20 Minutes Three Or More Days A Week? Yes- Most Of The Time [email or web address] Information not available 05/21/2023 Are There Any Safety Concerns In Your Home (see Attached [facility] Pamphlet)? No [email or web address] Information not available 05/21/2023 How Often Do You Have Trouble Taking Medicines The Way You Have Been Told To Take Them? I Always Take Them As Prescribed [email or web address] Information not available 05/21/2023 How Confident Are You That You Can Control And Manage Most Of Your Health Problems? Very Confident [email or web address] Information not available 05/21/2023 Do You Currently Have Any Difficulty With Your Hearing? No [email or web address] Information not available 05/21/2023 Date Of Most Recent SBINS 05/21/2023 [email or web address] Information not available 05/21/2023 What Was The Date Of Your Most Recent Tobacco Screening? 09/01/2023 Information not available 09/01/2023 Has Tobacco Cessation Counseling Been Provided? Yes Information not available 09/01/2023 On What Date Was Tobacco Cessation Counseling Provided? 09/01/2023 Information not available 09/01/2023 Do You Or Have You Ever Used Any Other Forms Of Tobacco Or Nicotine? No [email or web address] Information not available 05/21/2023 Sex: Female Functional [...] preservative free, adsorbed 11/03/2018 completed Not Available [facility] 01/15/2023 04:53:39 Tdap 04/12/2007 completed Not Available [facility] 04:53:39 zoster live 06/16/2012 completed Not Available [facility] 01/15/2023 04:53:40 Pneumococcal conjugate PCV 13 09/17/2015 completed Not Available [facility] 01/15/2023 04:53:40 Influenza, high-dose, trivalent, PF 11/26/2017 completed Not Available [facility] 01/15/2023 04:53:41 Td(adult) unspecified formulation 09/30/1992 completed Not Available [facility] 01/15/2023 04:53:41 Influenza, split virus, trivalent, preservative 11/28/2015 completed Not Available [facility] 01/15/2023 04:53:41 Influenza, split virus, trivalent, preservative 01/04/2015 completed Not Available [facility] 01/15/2023 04:53:41 Influenza, split virus, quadrivalent, PF 12/21/2018 completed Not Available [facility] 01/15/2023 04:53:41 zoster recombinant 08/30/2018 completed Not Available [facility] 01/15/2023 04:53:42 zoster recombinant 01/26/2018 completed Not Available [facility] 01/15/2023 04:53:42 Influenza, high-dose, quadrivalent, PF 12/04/2020 completed Not Available [facility] 01/15/2023 04:53:43 Influenza, high-dose, quadrivalent, PF 12/11/2019 completed Not Available [facility] 01/15/2023 04:53:43 Influenza, high-dose, quadrivalent, PF 12/29/2021 completed Not Available [facility] 01/15/2023 04:53:43 COVID-19, mRNA, LNP-S, PF, 100 mcg/0.5mL dose or 50 mcg/0.25mL dose 07/09/2021 completed Not Available [facility] 01/15/2023 04:53:43 COVID-19 vaccine, vector-nr, rS-Ad26, PF, 0.5 mL 05/02/2020 completed Not Available [facility] 01/15/2023 04:53:44 SARS-COV-2 (COVID-19) vaccine, UNSPECIFIED 05/31/2020 completed Not Available [facility] 01/15/2023 04:53:44 SARS-COV-2 (COVID-19) vaccine, UNSPECIFIED 01/03/2021 completed Not Available [facility] 01/15/2023 04:53:44 pneumococcal polysaccharide PPV23 07/05/2014 completed Not Available [facility] 2022 04:53:45 Hep B, unspecified formulation 04/14/1993 completed Not Available [facility] 01/15/2023 04:53:45 Hep B, unspecified formulation 09/30/1992 completed Not Available [facility] 01/15/2023 04:53:46 Hep B, unspecified formulation 10/31/1992 completed Not Available [facility] 01/15/2023 04:53:46 influenza, unspecified formulation 12/11/2009 completed Not Available [facility] 01/15/2023 04:53:47 influenza, unspecified formulation 12/13/2012 completed Not Available [facility] 01/15/2023 04:53:47 influenza, unspecified formulation 12/18/2008 completed Not Available [facility] 01/15/2023 04:53:47 influenza, unspecified formulation 12/19/2010 completed Not Available [facility] 01/15/2023 04:53:47 influenza, unspecified formulation 12/30/2006 completed Not Available [facility] 01/15/2023 04:53:48 influenza, unspecified formulation 01/09/2014 completed Not Available [facility] 01/15/2023 04:53:48 influenza, unspecified formulation 01/26/2008 completed Not Available [facility] 01/15/2023 04:53:48 influenza, unspecified formulation 02/16/2012 completed Not Available [facility] 01/15/2023 04:53:48 Influenza, high-dose, quadrivalent, PF 12/17/2022 completed Not Available [facility] 03/19/2023 05:33:03 COVID-19, mRNA, LNP-S, PF, herminio-sucrose, 30 mcg/0.3 mL 12/28/2022 completed Not Available [facility] 03/19/2023 05:33:03 Past Encounters Encounter ID Performer Location Encounter Start Date Encounter Closed Date Diagnosis/Indication Diagnosis SNOMED-CT Code [id number] JU CORTEZ MD [address] [address] 05/21/2023 10:03:54 05/21/2023 11:37:49 Onychomycosis 999232179 Asthma 106700182 Cardiomyopathy 92365309 Disorder of hip joint 42 9167479 Guttate psoriasis 039056 00 Hyperlipidemia 43956178 Vulval and /or perineal noninflammatory disorders 099001491 Adult heal th examination [id number] [address] [place] [address] 09/01/2023 10:23:16 09/01/2023 13:28:10 Vertigo 777808986 Impacted c erumen of bilateral ears [id number] 8 Health Concerns Section Related Observation LastModified by Organization Detai ls LastModified Time None Recorded Concern Status LastModified by Organization Details LastModified Time None Recorded Advance Directives Directive None Recorded Payers Encounter Date Sequence Insurance Name Policy Number Policy Lema Covered Member ID Lema Member ID Guarantor Name 05/21/2023 1 [id number]ANTAGE - PPO) [id number] Luna Barber Mott [id number] Luna Mott 09/01/2023 1 [place] - [place]) [id number] Luna Mott [id number] Luna Mott Notes Date Note Type Note Provider Name and Address Organization Details Recorded Time 05/21/2023 text/html HPI Notes: Thais here today for an annual wellness exam MD [address], [place], [address], [facility]. 05/24/2023 18:32:35 09/01/2023 text/html HPI Notes: [...] the name of it. [address], [place], [address], [facility]. 09/01/2023 13:55:07 OBGyn Episode No OBEpisode recorded.
--- OUTSIDE RECORDS SUMMARY | 2023-11-03 11:22 | XMS_ITS | Encounter Summary ---
Author Organization [facility] Address [address] [place] [address] Care Team Providers Care Psychiatric Tech Name Role Phone Unavailable Primary Care Provider Unavailabl e Encounter Details Date Type Department Care Team (Late st Contact Info) Description 11/07/2008 Orders Only [facility] Laboratory Services - [facility] ([facility]) [address] [place] [address] Kenneth Parker MD [address] [place] [id number] Social History Tobacco Use Types Packs/Day Years [...] ? LYLE, JING ? Accession #: ? [id number] ? : ? 1950 (Age: 58) ??F [...] Gross Description: ? Received in formalin labelled Jnig Mott and EMB is a 0.4 x 0.4 x 0.2 cm aggregate of pineda-brown mucinous material. ??The specimen is submitted ? entirely in one cassette following filtration. (Aaron Gray)/lgk ? End of Report ? TOVA BLANCO 11/07/2008 11/08/2008 16: 51 EDT Kenneth Parker MD PATHOLOGY ORDERABLES Performing Organization Address City/State/[facility] Co de Phone Number TOVA BLANCO [address] [place] [address] documented in this encounter Visit Diagnoses Not on filedocumented in this encounter
--- OUTSIDE RECORDS SUMMARY | 2023-11-03 11:22 | XMS_ITS | Referral Summary ---
Author Organization [facility] Address [address] [place] [address] Care Team Providers Care Coppersmith Apprentice Name Role Phone Lolly Oliveira MD Primary Care Provider [phone] Social History Tobacco Use Types Packs/Day Years Used Date Smoking Tobacco: Never Assessed Sex and Gender Information Value Date Recorded Sex Assigned at Not on file Gender Identity Not on file Sexual Orientation Not on file Plan of Treatment Not on file Care Teams Coppersmith Apprentice Relationship Specialty Start Date End Date Lolly Oliveira MD [address] [place] [address] PCP - General 11/13/08
--- OUTSIDE RECORDS SUMMARY | 2023-11-03 11:22 | XMS_ITS | Encounter Summary ---
Author Organization [facility] Address [address] [place] [address] Care Team Providers Care Toolroom Keeper Name Role Phone Lolly Oliveira MD Primary Care Provider [phone] Encounter Details Date Type Department Care Team (Late st Contact Info) Description 06/16/2012 Results Only [facility] Laboratory Services - [facility] [address], [place] [phone] Lolly Oliveira MD [address] [place], [place] [phone] Social History Tobacco Use Types Packs/Day Years [...] ? JING ALVARENGA ? Accession #: ? [id number] : ? 1950 (Age: 61) ??F ?Collect [...] 06/16/2012 06/17/2012 Lolly Oliveira MD PATHOLOGY ORDERABLES [facility] [address] [place] [address] documented in this encounter Visit Diagnoses Not on filedocumented in this encounter Care Teams Toolroom Keeper Relationship Specialty Start Date End Date Lolly Oliveira MD [address] [place] [address] PCP - General 11/13/08 documented as of this encounter
--- OUTSIDE RECORDS SUMMARY | 2023-11-03 11:22 | XMS_ITS | Encounter Summary ---
Author Organization [facility] Address [facility] [place] [address] Care Team Providers Care Electric Motor Assembler Name Role Phone Lolly Oliveira MD Primary Care Provider Encounter Details Date Type Department Care Team (Late st Contact Info) Description 11/11/2022 Orders Only Cardiology at [address] [phone] Lalit Mcmahon MD [facility] [place] [address] Nonischemic cardiomyopathy Social History Tobacco Use Types Packs/Day Years Used Date Smoking Tobacco: Never Alcohol Use Standard Drinks/Week Comments Not Currently 0 (1 standard drink = 0.6 oz pur e alcohol) [facility] Inpatient Questions Answer Date Recorded [...] st Contact Info) Description 01/16/2024 10:00 AM [facility] Hospital Encounter Non-[place] [address] Arrived documented as of this encounter Visit Diagnoses Diagnosis Nonischemic cardiomyopathy Other primary cardiomyopathies documented in this encounter Care Teams Electric Motor Assembler Relationship Specialty Start Date End Date Berrian, Lolly M, MD [address] [place] [address] PCP - General 07/17/13 documented as of this encounter
--- OUTSIDE RECORDS SUMMARY | 2023-11-03 11:22 | XMS_ITS | Encounter Summary ---
Author Organization [facility] [place] [address] Care Team Providers Care Figurine Maker Name Role Phone Lolly Oliveira MD Primary Care Provider [phone] Reason for Visit * Reason Onset Date Comments Other 07/24/2022 Implanted Cardia c Device Teaching/Education Encounter Details Date Type Department Care Team (Late st Contact Info) Description 07/24/2022 Notes Only Cardiology at [address] [phone] Letha Arroyo Other (Implanted Cardiac Device Teaching/Education) [...] to call the Cardiac Device Clinic at [phone] with any questions. Plan: Post op check: [...] [facility] Encounter [place] [address] Arrived documented as of this encounter Visit Diagnoses Not on filedocumented in this encounter Care Teams Figurine Maker Relationship Specialty Start Date End Date Lolly Oliveira MD [address] [place] [address] PCP - General 07/17/13 documented as of this encounter
--- OUTSIDE RECORDS SUMMARY | 2023-11-03 11:22 | XMS_ITS | Encounter Summary ---
Author Organization [facility] Address [address] [place] [address] Care Team Providers Care Identification Technician Name Role Phone Lolly Oliveira MD Primary Care Provider [phone] Encounter Details Date Type Department Care Team (Late st Contact Info) Description 11/13/2020 Lab Requisition [facility] Pathology & Laboratory Medicine - [address] [phone] Outr Resulting Lab, Provider Social History Tobacco [...] Outr Resulting Lab MICROBIOLOGY - GENERAL ORDERABLES [facility] [address] [place] [address] * COVID-19 TESTING (11/13/2020 7:30 EDT) COVID-19 rt-PCR Result Negative Negative 11/14/2020 11:46 EDT [facility] Comment: This test [...] performed using the med SARS-CoV-2 assay ([employer] on the Med 6800 System Performing Lab Med [address] [facility] Lab 11/14/2020 11:46 EDT [facility] Swab 11/13/2020 7:30 EDT 11/13/2020 20:57 EDT Provider Outr Resulting Lab MICROBIOLOGY - GENERAL ORDERABLES [facility] [address] [place] [address] documented in this encounter Visit Diagnoses Not on filedocumented in this encounter Care Teams Identification Technician Relationship Specialty Start Date End Date Lolly Oliveira MD [address] [place] [address] PCP - General 11/13/08 documented as of this encounter
--- OUTSIDE RECORDS SUMMARY | 2023-11-03 11:22 | XMS_ITS | Encounter Summary ---
Author Organization [facility] [place] [address] Care Team Providers Care Floor Installation Mechanic Name Role Phone Lolly Oliveira MD Primary Care Provider [phone] Encounter Details Date Type Department Care Team (Latest Contact Info) Description 04/21/2023 10:00 AM EST - 04/21/2023 11:59 PM EST Hospital Encounter Non-[place] [phone] Discharge Disposition: Home Social History Tobacco Use [...] with spacer fluticasone propionate (Flonase) 50 mcg/actuation [place], Suspension 1 spray by Each Nare route [...] AM EST Hospital Encounter Non-[place] [address] Arrived documented as of this [...] filedocumented in this encounter Care Teams Floor Installation Mechanic Relationship Specialty Start Date End Date Lolly Oliveira MD [address] [place] [address] PCP - General 07/17/13 documented as of this encounter
--- OUTSIDE RECORDS SUMMARY | 2023-11-03 11:22 | XMS_ITS | Encounter Summary ---
Author Organization [facility] Address [address] [place] [address] Care Team Providers Care Statistician Applied Name Role Phone Lolly Olievira MD Primary Care Provider [phone] Encounter Details Date Type Department Care Team (Late st Contact Info) Description 04/01/2005 Results Only [facility] - [facility] [address] [place] [address] Blair Dukes MD [address] [place] [phone] Social History Tobacco Use Types Packs/Day Years [...] ? JING ALVARENGA ? Accession #: ? [id number] ? : ? 1950 (Age: 54) ??F [...] (A). Received in [place]' s fixative labelled [place] and #2 ??transverse colon bx is a single 0.2 x 0.2 x 0.2 cm tissue, submitted intact as (B). ??(Dr. Lechuga)/[facility] End of Report [facility] 04/01/2005 04/02/2005 15: 24 EST Blair Dukes MD PATHOLOGY ORDERABLES [facility] [address] [place] [address] documented in this encounter Visit Diagnoses Not on filedocumented in this encounter Care Teams Statistician Applied Relationship Specialty Start Date End Date Lolly Oliveira MD [address] [place] [address] PCP - General 11/13/08 documented as of this encounter
--- OUTSIDE RECORDS SUMMARY | 2023-11-03 11:22 | XMS_ITS | Encounter Summary ---
Author Organization [facility] [place] [address] Care Team Providers Care Dynamicist Name Role Phone Lolly Oliveira MD Primary Care Provider [phone] Reason for Visit * Reason Comments Follow-up 8 weeks UVB treatmen t twice weekly Encounter Details Date Type Department Care Team (Late st Contact Info) Description 07/19/2023 11:00 AM EDT Office Visit Dermatology at [address] [phone] Clay Ramírez MD [address], ERIKA A DERMATOLOGY [place], [place] [phone] Psoriasis Social History Tobacco Use Types Packs/Day [...] st Contact Info) Description 01/16/2024 10:00 AM [facility] Hospital Encounter Non-Invasive [place] [address] Arrived documented as of this encounter Visit Diagnoses Diagnosis Psoriasis Other psoriasis documented in this encounter Care Teams Dynamicist Relationship Specialty Start Date End Date Lolly Oliveira MD [address] [place] [address] PCP - General 07/17/13 documented as of this encounter
--- OUTSIDE RECORDS SUMMARY | 2023-11-03 11:22 | XMS_ITS | Encounter Summary ---
Author Organization Formerly [facility] Address [facility] [place] [address] Care Team Providers Care Per Diem Interpreter Name Role Phone Lolly Oliveira MD Primary Care Provider [phone] Reason for Referral * Diagnostic Test (Routine) - Closed Specialty Diagnoses / Procedures Referred By Contkoki t Referred To Contact Cardiology Diagnoses Nonischemic cardiomyopathy Biventricular ICD (implantable cardioverter-defibrillator) in place Procedures Echocardiogram Transthoracic Lalit Mcmahon MD [facility] [address] [place] [id number] Referral ID Status Reason Start Date Expiration Date V isits Requested Visits Authorized [id number] Closed Specialty Service Requested 03/15/2023 09/11/2023 1 1 Encounter Details Date Type Department Care Team (Late st Contact Info) Description 03/15/2023 Orders Only Cardiology at [address] [address] Lalit Mcmahon MD [facility] [place] [address] Nonischemic cardiomyopathy; Biventricular ICD (implantable cardioverter-defibrill ator) in place Social History Tobacco Use Types Packs/Day Years Used Date Smoking Tobacco: Never Alcohol Use Standard Drinks/Week Comments Not Currently 0 (1 standard drink = 0.6 oz pur e alcohol) [facility] Inpatient Questions Answer Date Recorded Does Anyone [...] AM EST Hospital Encounter Non[place] [address] Arrived Scheduled Orders Name Type Priority Associated Diagnoses Order Schedule Echocardiogram Transthoracic Echocardiography Routine Nonischemic cardiomyopathy Biventricular ICD (implantable cardioverter-defibr illator) in place Expected: 05/05/2023, Expires: 11/04/2023 documented as of this encounter Visit Diagnoses Diagnosis Nonischemic cardiomyopathy Other primary cardiomyopathies Biventricular ICD (implantable cardioverter-defibrillator) in place documented in this encounter Care Teams Per Diem Interpreter Relationship Specialty Start Date End Date Lolly Oliveira MD [address] [place] [address] PCP - General 07/17/13 documented as of this encounter
--- OUTSIDE RECORDS SUMMARY | 2023-11-03 11:22 | XMS_ITS | Clinical Summary ---
Author Organization [facility] Address [address] [place] [address] Care Team Providers Care Airframe Technician Name Role Phone Lolly Oliveira MD Primary Care Provider [phone] Social History Tobacco Use Types Packs/Day Years [...] COVID-19 Vaccine ( season) 2022 Care Teams Airframe Technician Relationship Specialty Start Date End Date Lolly Oliveira MD [address] [place], [place] [address] PCP - General 11/13/08
--- OUTSIDE RECORDS SUMMARY | 2023-11-03 11:22 | XMS_ITS | Clinical Summary ---
Author Organization [facility] [place] [address] Care Team Providers Care Lean Six Sigma Senior Specialist Name Role Phone Lolly Oliveira MD Primary Care Provider [phone] Allergies Active Allergy Reactions Criticality Noted Date [...] spacer Active fluticasone propionate (Flonase) 50 mcg/actuation [place], Suspension 1 spray by Each Nare route [...] PM EDT Hospital Encounter [place] [address] Discharge Disposition: Home from Last [...] AM EST Hospital Encounter [place] [address] Arrived Health Maintenance Due Date Last Done [...] series) 11/07/2023 Medical Devices Implanted Type Area Binitrotoluene Operator Device Identifier Shelf Expiration Date Model / Serial / Lot Bsx: [id number]: 777209-7/18/2 023 Implanted: by Lalit Mcmahon MD (Quantity not on file) Defibrillator Chest Wall [employer] [id number] / [id number] / Bsx: [id number]: [id number]/18/2 023 Implanted: by Lalit Mcmahon MD (Quantity not on file) Lead Heart [employer] [id number] / [id number] / Bsx: [id number]: [id number] Implanted: by Lalit Mcmahon MD (Quantity not on file) Lead Heart [employer] [id number] / [id number] / Bsx: [id number]: [id number]/18/2 023 Implanted: by Lalit Mcmahon MD (Quantity not on file) Lead Heart [employer] [id number] / [id number] / Procedures Procedure Name Priority Date/Time Associated [...] Status decision made by: Patient Care Teams Lean Six Sigma Senior Specialist Relationship Specialty Start Date End Date Lolly Oliveira MD [address] [place] [address] PCP - General 07/17/13
--- OUTSIDE RECORDS SUMMARY | 2023-11-03 11:22 | XMS_ITS | Encounter Summary ---
Author Organization [facility] [place] [address] Care Team Providers Care Vamp Cut Out Worker Name Role Phone Lolly Oliveira MD Primary Care Provider [phone] Reason for Visit * Reason Onset Date Comments Post Procedure Call 07/30/2022 Encounter Details Date Type Department Care Team (Late st Contact Info) Description 07/30/2022 Notes Only Cardiology at [address] [phone] Rosenda Sutton, RN Post Procedure Call Social History Tobacco Use Types Packs/Day Years Used Date Smoking Tobacco: Never Alcohol Use Standard Drinks/Week Comments Not Currently 0 (1 standard drink = 0.6 oz pur e alcohol) REPLACED BY [facility] Inpatient Questions Answer Date Recorded Does Anyone [...] 07/30/2022 9:59 AM EDTSummary: Post Procedure Call: SURVEYOR CHAIN HELPER implant EP RN Post-Procedure Note: Date of Follow Up Call: 07/30/2022 Spoke With: Patient Procedure Type (choose all that apply): ICD Performing MIRLANDE Mcmahon Date of Procedure: 07/23/2022 Date of Discharge: 07/24/2022 Follow Up EP Visit Scheduled?: No No Follow Up Visit Reason: Follow up outside Outside Location: [facility] Date of Non EP Visit: 08/12/2022 [...] Note: Follow-up Recommendations for Providers: - s/p SURVEYOR CHAIN HELPER-D implant - post implant QRS 130 ms - reviewed post-implant instructions - no medication changes - Follow up in device clinic for wound/device check in ~10 days??([facility]) Wound Care: -Wound will heal in [...] [facility] Hospital Encounter Non[place] [address] Arrived documented as of this encounter Visit Diagnoses Not on filedocumented in this encounter Care Teams Vamp Cut Out Worker Relationship Specialty Start Date End Date Lolly Oliveira MD [address] [place] [address] PCP - General 07/17/13 documented as of this encounter
--- OUTSIDE RECORDS SUMMARY | 2023-11-03 11:22 | XMS_ITS | Encounter Summary ---
Author Organization [facility] Address [address] [place] [address] Care Team Providers Care Stave Log Cut Off Saw Operator Name Role Phone Lolly Oliveira MD Primary Care Provider [phone] Encounter Details Date Type Department Care Team (Late st Contact Info) Description 02/11/2021 Lab Requisition [facility] Pathology & Laboratory Medicine - [address] [address] Outr Resulting Lab, Provider Social History Tobacco [...] Outr Resulting Lab MICROBIOLOGY - GENERAL ORDERABLES [facility] [address] [place] [address] * COVID-19 TESTING (02/11/2021 8:00 EST) COVID-19 rt-PCR Result Negative Negative 02/12/2021 14:17 EST [facility] Comment: This test has [...] was performed using the med SARS-CoV-2 assay ([employer] on the Med 6800 System Performing Lab Med [address] [facility] Lab 02/12/2021 14:17 EST [facility] Swab 02/11/2021 8:00 EST 02/11/2021 22:22 EST Provider Outr Resulting Lab MICROBIOLOGY - GENERAL ORDERABLES [facility] [address] [place] [address] documented in this encounter Visit Diagnoses Not on filedocumented in this encounter Care Teams Stave Log Cut Off Saw Operator Relationship Specialty Start Date End Date Lolly Oliveira MD [address] [place] [address] PCP - General 11/13/08 documented as of this encounter
--- OUTSIDE RECORDS SUMMARY | 2023-11-03 11:23 | XMS_ITS | Encounter Summary ---
Author Organization [facility] Address [facility] [place] [address] Care Team Providers Care Media/Instructional Designer Name Role Phone Lolly Oliveira MD Primary Care Provider [phone] Encounter Details Date Type Department Care Team (Late st Contact Info) Description 07/16/2022 Telephone Cardiology at [address] [phone] Lalit Mcmahon MD [facility] [place] [address] Social History Tobacco Use Types Packs/Day Years [...] her nonischemic cardiomyopathy. She is scheduled for [employer] [employer]-D implantation next week and looks forward to the procedure. We will see each other next week. Lalit Mcmahon MD [facility] Cardiac Electrophysiology 07/16/2022 8:52 AM documented in this encounter Plan of Treatment Upcoming Encounters Date Type Department Care Team (Late st Contact Info) Description 01/16/2024 10:00 AM EST Hospital Encounter Non[place] [address] Arrived documented as of this encounter Visit Diagnoses Not on filedocumented in this encounter Care Teams Media/Instructional Designer Relationship Specialty Start Date End Date Lolly Oliveira MD [address] [place] [address] PCP - General 07/17/13 documented as of this encounter
--- OUTSIDE RECORDS SUMMARY | 2023-11-03 11:23 | XMS_ITS | Encounter Summary ---
Author Organization [facility] Address [place] [address] Care Team Providers Care Machine Operator Name Role Phone Lolly Oliveira MD Primary Care Provider [phone] Reason for Visit * Auth/Cert (Routine) Specialty Diagnoses / Procedures Referred By Contac t Referred To Contact Diagnoses Left bundle-branch block, unspecified Other cardiomyopathies Left bundle branch block [I44.7]Nonischemic cardiomyopathy [I42.8] Procedures PRG CATH PLMT LEFT HEART CATH & ARTS W/INJ & ANGIO IMG S&I ELECTROPHYSIOLOGY PROCEDURE Lalit Mcmahon MD [facility] [place] [address] [facility] Referral ID Status Reason Start Date Expiration Date Visits Re quested Visits Authorized [id number] 1 1 Encounter Details Date Type Department Care Team (Latest Contact Info) Description 07/23/2022 11:39 AM EDT - 07/24/2022 10:23 AM EDT Hospital [place] [id number] Lalit Mcmahon MD [facility] [place] [address] Left bundle branch block; Nonischemic cardiomyopathy; Cardiac resynchronization therapy defibrillator (GRAY TENDER-D) in place Discharge Disposition: Home Social History [...] Luna Mott Patient Age: 71 y.o. Language: Kinyarwanda Race: White Ethnicity: Not nor Admit date: 07/23/2022 Discharge date and time: 07/24/22 Attending Physician: Lalit Mcmahon MD Discharge Physician: Lalit Mcmahon MD Follow-up Recommendations for Providers: - s/p GRAY TENDER-D implant - post implant QRS 130 ms [...] Solar lentigo Operations/Major Procedures: 07/23/22: [facility] GRAY TENDER-D implant History of Presentation: 71 y.o. female with a history of HFrEF, LBBB, QRS >150, NYHA II who is POD#1 of GRAY TENDER-D implant ([employer]). Hospital Course: Elective admission for GRAY TENDER-D implant Admitted post-implant for pain management, telemetry [...] (heart failure with reduced ejection fraction) [I50.20] GRAY TENDER-D implant Admission Condition: good Indication for Admission: [...] g Refills: 3 fluticasone propionate 50 mcg/actuation Herman, Suspension Commonly known as: Flonase 1 spray [...] the incision. Make sure to use a hand cloth folder (such as a towel) in between the [...] F. The office scheduling phone number is [phone]. ARM MOVEMENT RESTRICTIONS POST-IMPLANT - Do not [...] please call the Cardiac ElectrophysiologyTriage Nurse at [phone], option 3. General Instructions None Discharge References/Attachments None Lalit Mcmahon MD S Cardiac Electrophysiology 07/24/2022 12:33 PM documented in this encounter Discharge Instructions * Patient Instructions* Fadi Nunez MD - 07/24/2022 8:10 AM EDT FINAL ICD/PACEMAKER RECOMMENDATIONS: 1. Standard post implant discharge instructions (see below): 2. Medications as listed above. You may use ice packs over the incision. Make sure to use a hand cloth folder (such as a towel) in between the [...] F. The office scheduling phone number is [phone]. ARM MOVEMENT RESTRICTIONS POST-IMPLANT - Do not [...] please call the Cardiac ElectrophysiologyTriage Nurse at [phone], option 3. documented in this encounter Medications [...] with spacer fluticasone propionate (Flonase) 50 mcg/actuation Herman, Suspension 1 spray by Each Nare route [...] Cardiac Electrophysiology Post-Implant Device Interrogation Luna Mott [id number] 07/24/2022 History: Luna Mott is a 71 y.o. female with a history of HFrEF, LBBB, QRS >150, NYHA II who is POD#1 of GRAY TENDER-D implant ([employer]). Overall feels well this morning. Ready [...] WOB Neuro- A&Ox3 Device Interrogation: Data ?? Advanced Quality Engineer Model # Serial # Generator [employer] [id number] Atrial Lead [employer] [id number] [id number] RV Lead [employer] 0672 [id number] LV Lead [employer] [id number] ?? Diagnostics Pacing Mode: DDD 60-130 Underlying Rhythm: [place] Atrial Episodes: None Ventricular Episodes: None FINAL PROGRAMMING: Pacing: Mode Lower rate (ppm) Upper rate (ppm) ?? DDD 60 130 VF: Rate (bpm) #Antitachycardia pacing First shock energy (J) ?? 200 Quick convert 41 VT: 170 Monitor only Monitor only ? Battery and Leads Impedances (ohms) Sensing (mV) Thresholds HV RA RV LV RA RV LV RA RV LV 73 424 030 6597 (LVa) 7.7 13.1 >25 0.4V @ 0.4 ms 0.4V @ 0.4 ms 0.5 V @ 1.0 ms POD#1 CXR: All leads in nominal positioning Impression: 71 y.o. female who is s/p GRAY TENDER-D implant for LBBB, NYHA II, HFrEF. - [...] [facility]) Fadi Nunez MD 07/24/2022 Pager: [phone] I met with the patient today and [...] agreement. ? Dr. Lalit Mcmahon, electrophysiology attending ([id number]) * Zaria Wright RN - 07/23/2022 8:28 [...] HF, QRS > 150 ms presents for GRAY TENDER-D placement. ROS: Denies recent fevers or chills [...] 0.9) flush 5 mL 5 mL Intravenous [id number] ramos MD ??? sodium chloride 0.9 % [...] HF, QRS > 150 ms presents for GRAY TENDER-D placement. Backup would be LBBAP lead. Antibiotics: cefazolin Rationales for, intended benefits and potential risk of planned procedures reviewed. The patient indicated understanding and agreement with the plan. Informed consent signed. Procedure checklist completed. Fadi Nunez MD Cardiac Electrophysiology Fellow [facility] Pager [phone] 07/23/2022 I met with the patient today [...] agreement. ? Dr. Lalit Mcmahon, electrophysiology attending ([id number]) documented in this encounter Miscellaneous Notes * Brief Op Note - Lalit Mcmahon MD - 07/23/2022 4:04 PM EDT Brief Operative Note Patient Name: Luna Mott : [id number] MR#: [id number] Case Date: 07/23/2022 Surgeon: Surgeon(s) and Role: [...] AM EST Hospital Encounter Non-[place] [address] Arrived Scheduled Orders Name Type Priority Associated Diagnoses Orde r Schedule EKG 12 Lead ECG Routine Cardiac resynchronization therapy defibrillator (GRAY TENDER-D) in place One Time for 1 Occurrences [...] (Bezet) 522 ms MUSE SYSTEM Calculated R Townley 78 degrees MUSE SYSTEM Calculated T Townley -71 degrees MUSE SYSTEM INTERPRETATION AV dual-paced [...] who have questions please contact the health weekend caregiver that requested your imaging first. ? Electronically signed by: Kwame Vargas MD, [facility] ([phone]), at 07/24/2022 6:43 AM Narrative 07/24/2022 6:43 [...] patients who have questions please contactthe health weekend caregiver that requested your imaging first. Electronically signed by: Kwame Vargas MD, [facility]([phone]), at 07/24/2022 6:43 AM Lalit Mcmahon MD IMG DX ORDERABLES * ELECTROPHYSIOLOGY PROCEDURE (07/23/2022 1:11 PM EDT) Anatomical Region Laterality Modality Other Narrative 07/23/2022 4:24 PM EDT Table formatting from the original result was not included. BIVENTRICULAR ICD IMPLANTATION Medical Collector: Lalit Mcmahon MD Fellow: Fadi Nunez MD [...] the entire procedure. LEAD AND GENERATOR DATA: Advanced Quality Engineer Model # Serial # Generator [employer] [id number] Atrial Lead [employer] 7841 [id number] RV Lead [employer] 0672 [id number] LV Lead [employer] [id number] PACE/SENSE DATA: Sensed wave (mV) Threshold (V) [...] (cGycm2) 300 CONCLUSIONS: Successful implantation of a [employer] biventricular ICD for primary prevention and treatment of symptoms related to congestive heart failure. Follow up in EP clinic in 1-2 months. Procedures performed: new ICD system ( cpt 05992-O0); implant LV lead at time of ICD insertion (cpt 51303) I have read, edited and approve of this report: Lalit Mcmahon MD S Cardiac Electrophysiology 07/23/2022 4:22 PM Procedure Note Lalit Mcmahon MD - 07/23/2022 BIVENTRICULAR ICD IMPLANTATION Medical Collector: Lalit Mcmahon MD Fellow: Fadi Nunez MD [...] in the entireprocedure. LEAD AND GENERATOR DATA: Advanced Quality Engineer Model # Serial # Generator [employer] [id number] Atrial Lead [employer] 7841 [id number] RV Lead [employer] 0672 [id number] LV Lead [employer] [id number] PACE/SENSE DATA: Sensed wave (mV) Threshold (V) [...] (cGycm2) 300 CONCLUSIONS: Successful implantation of a [employer] biventricular ICD forprimary prevention and treatment of symptoms related to congestive heartfailure. Follow up in EP clinic in 1-2 months. Procedures performed: new ICD system ( cpt 50624-H8); implant LV lead attime of ICD insertion (cpt 43458) I have read, edited and approve of this report: Lalit Mcmahon MD [facility] Cardiac Electrophysiology 07/23/2022 4:22 PM Lalit Mcmahon MD EP PROCEDURE ORDERAB LES * POCT Glucose (07/23/2022 12:54 PM EDT) Glucose, POC 83 65 - 199 mg/dL [facility] Comment: Supplemental ranges: <140 mg/dL before meals <180 mg/dL all other times of the day Blood 07/23/2022 12:5 4 PM EDT 07/23/2022 12:54 PM EDT Lalit Mcmahon MD POINT OF CARE TEST O RDERABLES Performing Organization Address [facility] Co de Phone Number [facility] [place] [address] * EKG 12 Lead (07/23/2022 12:33 PM EDT) Ventricular rate 72 BPM MUSE SYSTEM Atrial Rate 72 BPM MUSE SYSTEM P-R Interval 158 ms MUSE SYSTEM QRS Duration 176 ms MUSE SYSTEM Q-T Interval 458 ms MUSE SYSTEM QTC Calculated (Bezet) 501 ms MUSE SYSTEM Calculated P Townley 34 degrees MUSE SYSTEM Calculated R [place]ley 12 degrees MUSE SYSTEM Calculated T Townley -173 degrees MUSE SYSTEM INTERPRETATION Normal sinus rhythm Left bundle branch block Abnormal ECG No previous ECGs available Confirmed by MD Salome, Lalit ([id number]) on 07/23/2022 1:19:03 PM MUSE SYSTEM 07/23/2022 12:3 3 PM EDT 07/23/2022 1:19 PM EDT Lalit Mcmahon MD ECG ORDERABLES Performing Organization Address [facility] de Phone Number MUSE SYSTEM * Differential, Automated (07/23/2022 11:55 AM EDT) Neutrophil % 62.6 % [facility] Neutrophil Absolute 4.14 1.70 - 6.10 x10(3)/[facility] Lymph % 27.0 % [facility] Lymphocytes Abs 1.8 0.9 - 3.2 x10(3)/[facility] Monocyte % 7.3 % [facility] Monocyte Abs 0.5 0.3 - 0.9 x10(3)/[facility] Eos % 2.3 % [facility] Eosinophils Abs 0.2 0.0 - 0.4 x10(3)/[facility] Basophil % 0.6 % [facility] Baso Absolute 0.0 0.0 - 0.1 x10(3)/[facility] Immature Gran % 0.20 % [facility] Comment: Immature granulocytes(IG's)percentage and absolute count will include metamyelocytes, myelocytes, and promyelocytes. Blood smears from CBCs yielding IG's will be scanned manually for concordance. If this scan disagrees with the automated IG or if promyelocytes are noted, a manual differential will be performed. Immature Gran Absolute 0.01 0.00 - 0.04 x10(3)/[facility] Blood 07/23/2022 11:5 5 AM EDT 07/23/2022 12:07 PM EDT Narrative Resulting Agency Comment Spec In Lab Lalit Mcmahon MD HEMATOLOGY ORDERABLE S [facility] [place] [address] * Hemogram (07/23/2022 11:55 AM EDT) White Blood Cell 6.6 4.0 - 9.5 x10(3)/[facility] Red Blood Cell 4.50 4.00 - 5.21 x10(6)/[facility] Hemoglobin 13.7 11.7 - 15.5 g/dL [facility] Hematocrit 42.5 35.7 - 45.8 % [facility] Mean Cell Volume 94.4 82.6 - 94.4 fL [facility] Mean Cell Hemoglobin 30.4 27.1 - 32.0 pg [facility] Mean Cell Hemoglobin Concentration 32.2 31.7 - 35.0 g/dL [facility] Platelet 193 145 - 357 x10(3)/[facility] RDW Standard Deviation 45.5 37.0 - 46.0 fL [facility] RDW coefficient of variation 13.2 11.5 - 14.1 % [facility] Mean Platelet Volume 9.5 7.6 - 12.9 fL [facility] NRBC% auto 0.0 % [facility] NRBC Absolute 0.000 0.000 - 0.000 x10(3)/mcL [facility] Blood 07/23/2022 11:5 5 AM EDT 07/23/2022 12:07 PM EDT Narrative Resulting Agency Comment Spec In Lab Lalit Mcmahon MD HEMATOLOGY ORDERABLE S [facility] [address] [place] [address] * (ABNORMAL) BMP w/fasting Glucose (07/23/2022 11:55 AM EDT) Glucose Fasting 110(H) 65 - 99 mg/dL [facility] Comment: ?Fasting* Glucose Interpretive Criteria [...] of Diabetes Mellitus, Position Statement from the [place] [employer]. ??Diabetes Care, Volume 33, Supplement 1, Mar 2009 Blood Urea Nitrogen 23(H) 8 - 18 mg/dL [facility] Creatinine 1.07 0.70 - 1.20 mg/dL [facility] Sodium 141 135 - 145 mmol/L [facility] Potassium 4.8 3.5 - 5.0 mmol/L [facility] Comment: Please note: ??Patients with WBC >100,000 may have falsely elevated Potassium levels. ??For accurate Potassium quantification in these patients send serum separator tube (gold top) for subsequent determinations. ??Contact the Clinical Chemistry Laboratory if there are any questions. Chloride 106 98 - 107 mmol/L [facility] Carbon Dioxide 26 22 - 31 mmol/L [facility] Anion Gap 9 5 - 15 mmol/L [facility] Calcium 9.7 8.5 - 10.5 mg/dL [facility] Est Glomerular Filtration Rate 55(L) >=60 mL/min/1. 73 m?? [facility] Comment: This patient's estimated GFR [...] Mcmahon MD CHEMISTRY ORDERABLES Performing Organization Address [facility] Co de Phone Number [facility] [place] [address] * Prothrombin Time (07/23/2022 11:55 AM EDT) Prothrombin Time 11.7 9.4 - 12.5 sec [facility] International Normalization Ratio 1.0 [facility] Comment: An INR <2.0 indicates [...] MD HEMATOLOGY ORDERABLE S Performing Organization Address City/[facility] Co de Phone Number [facility] [place] [address] documented in this encounter Visit Diagnoses Diagnosis HFrEF (heart failure with reduced ejection fraction)- Primary Left bundle branch block Other left bundle branch block Nonischemic cardiomyopathy Other primary cardiomyopathies Cardiac resynchronization therapy defibrillator (GRAY TENDER-D) in place Left bundle branch block Other [...] Routine documented in this encounter Care Teams Machine Operator Relationship Specialty Start Date End Date Lolly Oliveira MD [address] [place] [address] PCP - General 07/17/13 documented as of this encounter
--- OUTSIDE RECORDS SUMMARY | 2023-11-03 11:23 | XMS_ITS | Encounter Summary ---
Author Organization [facility] [place] [address] Care Team Providers Care Induction Machine Setter Name Role Phone Lolly Oliveira MD Primary Care Provider [phone] Encounter Details Date Type Department Care Team (Latest Contact Info) Description 07/26/2013 9:45 AM EDT - 07/26/2013 11:59 PM EDT Hospital [place] [address] Mammographic microcalcification Social History Tobacco Use Types [...] AM EST Hospital Encounter [place] [address] Arrived documented as of this encounter Procedures [...] microcalcification documented in this encounter Care Teams Induction Machine Setter Relationship Specialty Start Date End Date Lolly Oliveira MD [address] [place] [address] PCP - General 07/17/13 documented as of this encounter
--- OUTSIDE RECORDS SUMMARY | 2023-11-03 11:23 | XMS_ITS | Encounter Summary ---
Author Organization [facility] [place] [address] Care Team Providers Care Marketing Automation Manager Name Role Phone Unavailable Primary Care Provider Unavailabl e Encounter Details Date Type Department Care Team (Late st Contact Info) Description 07/04/2012 [place] [phone] Eleno Christian MD [facility] [place] [address] Social History Tobacco Use Types Packs/Day Years [...] AM EST Hospital Encounter [place] [address] Arrived documented as of this encounter Procedures [...] is a Non-reportable exam Eleno Christian MD [facility] ORD ERABLES documented in this encounter Visit Diagnoses Not on filedocumented in this encounter
--- OUTSIDE RECORDS SUMMARY | 2023-11-03 11:23 | XMS_ITS | Encounter Summary ---
Author Organization [facility] [place] [address] Care Team Providers Care Assembler Engine Name Role Phone Lolly Oliveira MD Primary Care Provider [phone] Reason for Visit * Reason Comments Skin Check Encounter Details Date Type Department Care Team (Late st Contact Info) Description 11/23/2014 10:00 AM EDT Office Visit Dermatology at [address] [address] Clay Ramírez MD [address] [facility] [place] [address] Dermatofibroma; Nevus; Solar lentigo Discharge Disposition: Home [...] [facility]ENTER Hospital Encounter Non-Invasive [place] [address] Arrived documented as of this encounter Visit Diagnoses Diagnosis Dermatofibroma Benign neoplasm of skin, site unspecified Nevus Benign neoplasm of skin, site unspecified Solar lentigo Other dyschromia documented in this encounter Care Teams Assembler Engine Relationship Specialty Start Date End Date Lolly Oliveira MD [address] [place] [address] PCP - General 07/17/13 documented as of this encounter
--- OUTSIDE RECORDS SUMMARY | 2023-11-03 11:23 | XMS_ITS | Encounter Summary ---
Author Organization [facility] [place] [address] Care Team Providers Care Cattle Broker Name Role Phone Lolly Oliveira MD Primary Care Provider [phone] Reason for Visit * Auth/Cert (Routine) Specialty Diagnoses / Procedures Referred By Contac t Referred To Contact Diagnoses Left bundle-branch block, unspecified Other cardiomyopathies Left bundle branch block [I44.7]Nonischemic cardiomyopathy [I42.8] Procedures PRG CATH PLMT LEFT HEART CATH & ARTS W/INJ & ANGIO IMG S&I ELECTROPHYSIOLOGY PROCEDURE Lalit Mcmahon MD [facility] [place] [address] [facility] Referral ID Status Reason Start Date Expiration Date Visits Re quested Visits Authorized [id number] 1 1 Encounter Details Date Type Department Care Team (Late st Contact Info) Description 07/23/2022 1:00 PM EDT - 07/23/2022 5:30 PM EDT Surgery [place] [address] Lalit Mcmahon MD [facility] [place] [address] ELECTROPHYSIOLOGY PROCEDURE Social History Tobacco Use Types Packs/Day Years Used Date Smoking Tobacco: Never Tobacco Cessation:Counseling Given: Not Answered Alcohol Use Standard Drinks/Week Comments Not Currently 0 (1 standard drink = 0.6 oz pur e alcohol) [facility] Inpatient Questions Answer Date Recorded [...] in this encounter Discharge Summaries * Lalit Mcmhaon MD - 07/24/2022 9:48 AM EDT Cardiac Electrophysiology Discharge Summary Patient Name: Luna Mott Patient Age: 71 y.o. Language: Thai Race: White Ethnicity: Not nor Admit date: 07/23/2022 Discharge date and time: 07/24/22 Attending Physician: Lalit Mcmahon MD Discharge Physician: Lalit Mcmahon MD Follow-up Recommendations for Providers: - s/p CLINICAL SPECIALIST VASCULAR-D implant - post implant QRS 130 ms [...] Operations/Major Procedures: 07/23/22: [facility] CLINICAL SPECIALIST VASCULAR-D implant History of Presentation: 71 y.o. female with a history of HFrEF, LBBB, QRS >150, NYHA II who is POD#1 of CLINICAL SPECIALIST VASCULAR-D implant ([employer]). Hospital Course: Elective admission for CLINICAL SPECIALIST VASCULAR-D implant Admitted post-implant for pain management, telemetry [...] (heart failure with reduced ejection fraction) [I50.20] CLINICAL SPECIALIST VASCULAR-D implant Admission Condition: good Indication for Admission: [...] g Refills: 3 fluticasone propionate 50 mcg/actuation [place], Suspension Commonly known as: Flonase 1 spray [...] incision. Make sure to use a clothes separator (such as a towel) in between the [...] F. The office scheduling phone number is [phone]. ARM MOVEMENT RESTRICTIONS POST-IMPLANT - Do not [...] please call the Cardiac ElectrophysiologyTriage Nurse at [phone], option 3. General Instructions None Discharge References/Attachments [...] incision. Make sure to use a clothes separator (such as a towel) in between the [...] F. The office scheduling phone number is [phone]. ARM MOVEMENT RESTRICTIONS POST-IMPLANT - Do not [...] please call the Cardiac ElectrophysiologyTriage Nurse at [phone], option 3. documented in this encounter Medications [...] with spacer fluticasone propionate (Flonase) 50 mcg/actuation [place], Suspension 1 spray by Each Nare route [...] Cardiac Electrophysiology Post-Implant Device Interrogation Luna Mott [id number] 07/24/2022 History: Luna Mott is a 71 y.o. female with a history of HFrEF, LBBB, QRS >150, NYHA II who is POD#1 of CLINICAL SPECIALIST VASCULAR-D implant ([employer]). Overall feels well this morning. Ready [...] WOB Neuro- A&Ox3 Device Interrogation: Data ?? Motion Picture Critic Model # Serial # Generator [employer] [id number] Atrial Lead [employer] [id number] RV Lead [employer] [id number] [id number] LV Lead [employer] [id number] ?? Diagnostics Pacing Mode: DDD 60-130 Underlying Rhythm: [place] Atrial Episodes: None Ventricular Episodes: None FINAL PROGRAMMING: Pacing: Mode Lower rate (ppm) Upper rate (ppm) ?? DDD 60 130 VF: Rate (bpm) #Antitachycardia pacing First shock energy (J) ?? 200 Quick convert 41 VT: 170 Monitor only Monitor only ? Battery and Leads Impedances (ohms) Sensing (mV) Thresholds HV RA RV LV RA RV LV RA RV LV 73 [phone] (LVa) 7.7 13.1 >25 0.4V @ 0.4 ms 0.4V @ 0.4 ms 0.5 V @ 1.0 ms POD#1 CXR: All leads in nominal positioning Impression: 71 y.o. female who is s/p CLINICAL SPECIALIST VASCULAR-D implant for LBBB, NYHA II, HFrEF. - [...] [facility]) Fadi Nunez MD 07/24/2022 Pager: [phone] I met with the patient today and [...] agreement. ? Dr. Lalit Mcmahon, electrophysiology attending ([id number]) * Zaria Wright RN - 07/23/2022 8:28 [...] HF, QRS > 150 ms presents for CLINICAL SPECIALIST VASCULAR-D placement. ROS: Denies recent fevers or chills [...] 0.9) flush 5 mL 5 mL Intravenous [id number] ramos MD ??? sodium chloride 0.9 % [...] HF, QRS > 150 ms presents for CLINICAL SPECIALIST VASCULAR-D placement. Backup would be LBBAP lead. Antibiotics: cefazolin Rationales for, intended benefits and potential risk of planned procedures reviewed. The patient indicated understanding and agreement with the plan. Informed consent signed. Procedure checklist completed. Fadi Nunez MD Cardiac Electrophysiology Fellow [facility] Pager [phone] 07/23/2022 I met with the patient today [...] agreement. ? Dr. Lalit Mcmahon, electrophysiology attending ([id number]) documented in this encounter Miscellaneous Notes * Brief Op Note - Lalit Mcmahon MD - 07/23/2022 4:04 PM EDT Brief Operative Note Patient Name: Luna Mott : [id number] MR#: [id number] Case Date: 07/23/2022 Surgeon: Surgeon(s) and Role: [...] AM EST Hospital Encounter [place] [address] Arrived Scheduled Orders Name Type Priority Associated Diagnoses Orde r Schedule EKG 12 Lead ECG Routine Cardiac resynchronization therapy defibrillator (CLINICAL SPECIALIST VASCULAR-D) in place One Time for 1 Occurrences [...] (Bezet) 522 ms MUSE SYSTEM Calculated R [place] 78 degrees MUSE SYSTEM Calculated T [place] -71 degrees MUSE SYSTEM INTERPRETATION AV dual-paced [...] who have questions please contact the health manager critical care that requested your imaging first. ? [...] patients who have questions please contactthe health manager critical care that requested your imaging first. Lalit Mcmahon MD IMG DX ORDERABLES * ELECTROPHYSIOLOGY PROCEDURE (07/23/2022 1:11 PM EDT) Anatomical Region Laterality Modality Other Narrative 07/23/2022 4:24 PM EDT Table formatting from the original result was not included. BIVENTRICULAR ICD IMPLANTATION Shirt Folding Machine Operator: Lalit Mcmahon MD Fellow: Fadi Nunez MD Referring physician: Zamzam oBss MD PATIENT HISTORY: Ms. Mott is a [...] lateral branch of the CS in the CUBAN view. This branch was cannulated with a [...] the entire procedure. LEAD AND GENERATOR DATA: Motion Picture Critic Model # Serial # Generator [employer] [id number] Atrial Lead [employer] [id number] RV Lead [employer] 0672 [id number] LV Lead [employer] [id number] PACE/SENSE DATA: Sensed wave (mV) Threshold (V) [...] (cGycm2) 300 CONCLUSIONS: Successful implantation of a [employer] biventricular ICD for primary prevention and treatment of symptoms related to congestive heart failure. Follow up in EP clinic in 1-2 months. Procedures performed: new ICD system ( cpt 28108-I3); implant LV lead at time of ICD insertion (cpt 33334) I have read, edited and approve of this report: Lalit Mcmahon MD [facility] Cardiac Electrophysiology 07/23/2022 4:22 PM Procedure Note Lalit Mcmahon MD - 07/23/2022 BIVENTRICULAR ICD IMPLANTATION Shirt Folding Machine Operator: Lalit Mcmahon MD Fellow: Fadi Nunez [...] appropriate lateralbranch of the CS in the CUBAN view. This branch was cannulated with a [...] in the entireprocedure. LEAD AND GENERATOR DATA: Motion Picture Critic Model # Serial # Generator [employer] [id number] Atrial Lead [employer] [id number] [id number] RV Lead [employer] 0672 [id number] LV Lead [employer] 4674 [id number] PACE/SENSE DATA: Sensed wave (mV) Threshold (V) [...] (cGycm2) 300 CONCLUSIONS: Successful implantation of a [employer] biventricular ICD forprimary prevention and treatment of symptoms related to congestive heartfailure. Follow up in EP clinic in 1-2 months. Procedures performed: new ICD system ( cpt 10202-S5); implant LV lead attime of ICD insertion (cpt 85637) I have read, edited and approve of this report: Lalit Mcmahon MD S Cardiac Electrophysiology 07/23/2022 4:22 PM Lalit Mcmahon MD EP PROCEDURE ORDERAB LES * POCT Glucose (07/23/2022 12:54 PM EDT) [facility] Signature Glucose, POC 83 65 - 199 mg/dL [facility] Comment: Supplemental ranges: <140 mg/dL before meals <180 mg/dL all other times of the day Blood 07/23/2022 12:5 4 PM EDT 07/23/2022 12:54 PM EDT Lalit Mcmahon MD POINT OF CARE TEST O RDERABLES Performing Organization Address City/[facility]/ZIP Co de Phone Number [facility] [place] [address] * EKG 12 Lead (07/23/2022 12:33 PM EDT) Ventricular rate 72 BPM MUSE SYSTEM Atrial Rate 72 BPM MUSE SYSTEM P-R Interval 158 ms MUSE SYSTEM QRS Duration 176 ms MUSE SYSTEM Q-T Interval 458 ms MUSE SYSTEM QTC Calculated (Bezet) 501 ms MUSE SYSTEM Calculated P [place] 34 degrees MUSE SYSTEM Calculated R [place] 12 degrees MUSE SYSTEM Calculated T [place] -173 degrees MUSE SYSTEM INTERPRETATION Normal sinus rhythm Left bundle branch block Abnormal ECG No previous ECGs available Confirmed by MD Salome, Lalit ([id number]) on 07/23/2022 1:19:03 PM MUSE SYSTEM 07/23/2022 12:3 3 PM EDT 07/23/2022 1:19 PM EDT Lalit Mcmahon MD ECG ORDERABLES Performing Organization Address [facility]/ZIP Co de Phone Number MUSE SYSTEM * Differential, Automated (07/23/2022 11:55 AM EDT) Neutrophil % 62.6 % [facility] Neutrophil Absolute 4.14 1.70 - 6.10 x10(3)/[facility] LAB[facility] Lymph % 27.0 % [facility] Lymphocytes Abs 1.8 0.9 - 3.2 x10(3)/[facility] LAB[facility] Monocyte % 7.3 % [facility] Monocyte Abs 0.5 0.3 - 0.9 x10(3)/[facility] LAB[facility] Eos % 2.3 % [facility] Eosinophils Abs 0.2 0.0 - 0.4 x10(3)/[facility] Basophil % 0.6 % [facility] Baso Absolute 0.0 0.0 - 0.1 x10(3)/[facility] LAB[facility] Immature Gran % 0.20 % [facility] Comment: Immature granulocytes(IG's)percentage and absolute count will include metamyelocytes, myelocytes, and promyelocytes. Blood smears from CBCs yielding IG's will be scanned manually for concordance. If this scan disagrees with the automated IG or if promyelocytes are noted, a manual differential will be performed. Immature Gran Absolute 0.01 0.00 - 0.04 x10(3)/[facility] Blood 07/23/2022 11:5 5 AM EDT 07/23/2022 12:07 PM EDT Narrative Resulting Agency Comment Spec In Lab Lalit Mcmahon MD HEMATOLOGY ORDERABLE S [facility] [place] [address] * Hemogram (07/23/2022 11:55 AM EDT) White Blood Cell 6.6 4.0 - 9.5 x10(3)/[facility] Red Blood Cell 4.50 4.00 - 5.21 x10(6)/[facility] Hemoglobin 13.7 11.7 - 15.5 g/dL [facility] Hematocrit 42.5 35.7 - 45.8 % [facility] Mean Cell Volume 94.4 82.6 - 94.4 fL [facility] Mean Cell Hemoglobin 30.4 27.1 - 32.0 pg [facility] Mean Cell Hemoglobin Concentration 32.2 31.7 - 35.0 g/dL [facility] Platelet 193 145 - 357 x10(3)/[facility] RDW Standard Deviation 45.5 37.0 - 46.0 fL [facility] RDW coefficient of variation 13.2 11.5 - 14.1 % [facility] Mean Platelet Volume 9.5 7.6 - 12.9 fL [facility] NRBC% auto 0.0 % [facility] NRBC Absolute 0.000 0.000 - 0.000 x10(3)/[facility] Blood 07/23/2022 11:5 5 AM EDT 07/23/2022 12:07 PM EDT Narrative Resulting Agency Comment Spec In Lab Lalit Mcmahon MD HEMATOLOGY ORDERABLE S [facility] [place] [address] * (ABNORMAL) BMP w/fasting Glucose (07/23/2022 11:55 AM EDT) Glucose Fasting 110(H) 65 - 99 mg/dL [facility] Comment: ?Fasting* Glucose Interpretive Criteria Normal [...] of Diabetes Mellitus, Position Statement from the [place] [employer]. ??Diabetes Care, Volume 33, Supplement 1, Mar 2009 Blood Urea Nitrogen 23(H) 8 - 18 mg/dL [facility] Creatinine 1.07 0.70 - 1.20 mg/dL [facility] Sodium 141 135 - 145 mmol/L [facility] Potassium 4.8 3.5 - 5.0 mmol/L [facility] Comment: Please note: ??Patients with WBC >100,000 may have falsely elevated Potassium levels. ??For accurate Potassium quantification in these patients send serum separator tube (gold top) for subsequent determinations. ??Contact the Clinical Chemistry Laboratory if there are any questions. Chloride 106 98 - 107 mmol/L [facility] Carbon Dioxide 26 22 - 31 mmol/L [facility] Anion Gap 9 5 - 15 mmol/L [facility] Calcium 9.7 8.5 - 10.5 mg/dL [facility] Est Glomerular Filtration Rate 55(L) >=60 mL/min/1. 73 m?? [facility] Comment: This patient's estimated [...] Mcmahon MD CHEMISTRY ORDERABLES Performing Organization Address [facility] Co de Phone Number [facility] [place] [address] * Prothrombin Time (07/23/2022 11:55 AM EDT) Prothrombin Time 11.7 9.4 - 12.5 sec [facility] International Normalization Ratio 1.0 [facility] Comment: An INR <2.0 indicates adequate [...] Performing Organization Address City/[facility] Co de Phone Number [facility] [place] [address] documented in this encounter Visit Diagnoses Diagnosis HFrEF (heart failure with reduced ejection fraction)- Primary Left bundle branch block Other left bundle branch block Nonischemic cardiomyopathy Other primary cardiomyopathies Cardiac resynchronization therapy defibrillator (CLINICAL SPECIALIST VASCULAR-D) in place Left bundle branch block Other [...] Routine documented in this encounter Care Teams Cattle Broker Relationship Specialty Start Date End Date Lolly Oliveira MD [address] [place] [address] PCP - General 07/17/13 documented as of this encounter
--- OUTSIDE RECORDS SUMMARY | 2023-11-03 11:23 | XMS_ITS | Encounter Summary ---
Author Organization [facility] [place] [address] Care Team Providers Care Distribution Dispatcher Name Role Phone Lolly Oliveira MD Primary Care Provider [phone] Encounter Details Date Type Department Care Team (Late st Contact Info) Description 04/01/2021 3:30 PM EST Office Visit Dermatology at [address] [phone] Clay Ramírez MD [address], [place] [address] Psoriasis, guttate Social History Tobacco Use Types [...] AM EST Hospital Encounter Non[place] [address] Arrived documented as of this encounter Visit Diagnoses Diagnosis Psoriasis, guttate Other psoriasis documented in this encounter Care Teams Distribution Dispatcher Relationship Specialty Start Date End Date Lolly Oliveira MD [address] [place] [address] PCP - General 07/17/13 documented as of this encounter
--- OUTSIDE RECORDS SUMMARY | 2023-11-03 11:23 | XMS_ITS | Encounter Summary ---
[place] [address] Care Team Providers Care Decorating Equipment Setter Name Role Phone Lolly Oliveira MD Primary Care Provider [phone] Encounter Details Date Type Department Care Team (Late st Contact Info) Description 04/09/2022 Refill Dermatology at [address] [address] Nora Meredith, SHOW JUMPING INSTRUCTOR Social History Tobacco Use Types Packs/Day Years [...] [facility] Hospital Encounter Non[place] [address] Arrived documented as of this encounter Visit Diagnoses Not on filedocumented in this encounter Care Teams Decorating Equipment Setter Relationship Specialty Start Date End Date Lolly Oliveira MD [address] [place] [address] PCP - General 07/17/13 documented as of this encounter
--- OUTSIDE RECORDS SUMMARY | 2023-11-03 11:23 | XMS_ITS | Encounter Summary ---
Author Organization [facility] [place] [address] Care Team Providers Care Booky Name Role Phone Lolly Oliveira MD Primary Care Provider [phone] Reason for Visit * Reason Comments Psoriasis Encounter Details Date Type Department Care Team (Late st Contact Info) Description 04/09/2022 1:45 PM EST Office Visit Dermatology at [address] [address] Clay Ramírez MD [address] [facility], [place] [address] Psoriasis, guttate Social History Tobacco Use Types [...] AM EST Hospital Encounter Non[place] [address] Arrived documented as of this encounter Visit Diagnoses Diagnosis Psoriasis, guttate Other psoriasis documented in this encounter Care Teams Booky Relationship Specialty Start Date End Date Lolly Oliveira MD [address] [place] [address] PCP - General 07/17/13 documented as of this encounter
--- OUTSIDE RECORDS SUMMARY | 2023-11-03 11:23 | XMS_ITS | Encounter Summary ---
Author Organization [facility] [place] [address] Care Team Providers Care Plasterer Stucco Name Role Phone Lolly Oliveira MD Primary Care Provider Encounter Details Date Type Department Care Team (Late st Contact Info) Description 07/26/2013 [place] [phone] Eleno Christian MD [facility] [address] Social History Tobacco Use Types Packs/Day Years [...] AM EST Hospital Encounter Non-Invasive [place] [address] Arrived documented as of this encounter Visit Diagnoses Not on filedocumented in this encounter Care Teams Plasterer Stucco Relationship Specialty Start Date End Date Lolly Oliveira MD [address] [place] [address] PCP - General 07/17/13 documented as of this encounter
--- OUTSIDE RECORDS SUMMARY | 2023-11-03 11:23 | XMS_ITS | Encounter Summary ---
Author Organization [facility] [place] [address] Care Team Providers Care Ornamental Metal Erector Name Role Phone Lolly Oliveira MD Primary Care Provider [phone] Reason for Visit * Reason Comments Follow-up Encounter Details Date Type Department Care Team (Late st Contact Info) Description 05/21/2022 8:00 AM EDT Office Visit Dermatology at [address] [phone] Clay Ramírez MD [address] [facility], [place] [address] Psoriasis, guttate Social History Tobacco Use Types [...] [facility] Hospital Encounter Non-Invasive [place] [address] Arrived documented as of this encounter Visit Diagnoses Diagnosis Psoriasis, guttate Other psoriasis documented in this encounter Care Teams Ornamental Metal Erector Relationship Specialty Start Date End Date Lolly Oliveira MD [address] [place] [address] PCP - General 07/17/13 documented as of this encounter
--- OUTSIDE RECORDS SUMMARY | 2023-11-03 11:23 | XMS_ITS | Encounter Summary ---
Author Organization [facility] [place] [address] Care Team Providers Care Sports Apparel Internship Name Role Phone Lolly Oliveira MD Primary Care Provider [phone] Reason for Visit * Reason Onset Date Comments Pre Procedure Call 07/01/2022 Encounter Details Date Type Department Care Team (Late st Contact Info) Description 07/01/2022 Telephone Cardiology at [address] [phone] Rosenda Sutton RN Pre Procedure Call Social History Tobacco Use Types Packs/Day Years Used Date Smoking Tobacco: Never Sex and Gender Information Value Date Recorded Sex Assigned at Not on file Gender Identity Not on file Sexual Orientation Not on file documented as of this encounter Miscellaneous Notes * Telephone Encounter - Rosenda Sutton RN - 07/01/2022 9:30 AM EDTSummary: Pre Procedure Call: CAFE WORKER implant EP FILTER BED PLACER COORDINATION CHECKLIST Patient Name: Luna Mott Patient Performing Face And Fill Packer: Lalit Mcmahon Referring Provider: Lolly Oliveira Date of Procedure: 07/23/22 Arrival Time/ Case Time: 12:00 pm / 1:00 pm Check In Location: City Designer Desk 4W Date Patient was Called: 07/01/22 Procedure: CAFE WORKER Company: [employer] Type: CAFE WORKER-D Laterality: LEFT Orders: Yes Lab Orders: Yes [...] overnight , understands that they will need yard truck driver on day of discharge Notified pt that Goff catheter may be placed on day of procedure depending on type & duration of case. documented in this encounter Plan of Treatment Upcoming Encounters Date Type Department Care Team (Late st Contact Info) Description 01/16/2024 10:00 AM [facility] Hospital Encounter [place] [address] Arrived documented as of this encounter Visit Diagnoses Not on filedocumented in this encounter Care Teams Sports Apparel Internship Relationship Specialty Start Date End Date Lolly Oliveira MD [address] [place] [address] PCP - General 07/17/13 documented as of this encounter
--- OUTSIDE RECORDS SUMMARY | 2023-11-03 11:23 | XMS_ITS | Encounter Summary ---
Author Organization [facility] [place] [address] Care Team Providers Care Surveillance Director Name Role Phone Lolly Oliveira MD Primary Care Provider [phone] Reason for Referral * Diagnostic Test (Routine) - Closed Specialty Diagnoses / Procedures Referred By Contac t Referred To Contact Radiology Diagnoses Left bundle branch block Nonischemic cardiomyopathy Procedures MRI Cardiac Morphology Function With Flow Velocity Quantification wwo Contrast MRI Cardiac Morphology Function wwo Contrast Lalit Mcmahon MD [facility] [place] [address] [place] [address] Referral ID Status Reason Start Date Expiration Date V isits Requested Visits Authorized [id number] Closed Specialty Service Requested 05/06/2022 11/07/2023 2 1 Encounter Details Date Type Department Care Team (Late st Contact Info) Description 05/06/2022 Orders Only Cardiology at [address] [address] Lalit Mcmahon MD [facility] [address] Left bundle branch block; Nonischemic cardiomyopathy Social [...] AM EST Hospital Encounter Non[place] [address] Arrived documented as of this encounter Results [...] who have questions please contact the health reproductive healthcare assistant that requested your imaging first. ? Narrative [...] patients who have questions please contactthe health reproductive healthcare assistant that requested your imaging first. Lalit Mcmahon MD IMG MRI ORDERABLES documented in this encounter Visit Diagnoses Diagnosis Left bundle branch block Other left bundle branch block Nonischemic cardiomyopathy Other primary cardiomyopathies Left bundle branch block Other left bundle branch block Nonischemic cardiomyopathy Other primary cardiomyopathies documented in this encounter Care Teams Surveillance Director Relationship Specialty Start Date End Date Lolly Oliveira MD [address] [place] [address] PCP - General 07/17/13 documented as of this encounter
--- OUTSIDE RECORDS SUMMARY | 2023-11-03 11:23 | XMS_ITS | Encounter Summary ---
[place] [address] Care Team Providers Care Pearl Diver Name Role Phone Lolly Oliveira MD Primary Care Provider [phone] Encounter Details Date Type Department Care Team [...] AM EST Hospital Encounter Non-Invasive [place] [address] Arrived documented as of this encounter Visit Diagnoses Not on filedocumented in this encounter Care Teams Pearl Diver Relationship Specialty Start Date End Date Lolly Oliveira MD [address] [place] [address] PCP - General 07/17/13 documented as of this encounter
--- OUTSIDE RECORDS SUMMARY | 2023-11-03 11:23 | XMS_ITS | Encounter Summary ---
Author Organization [facility] [place] [address] Care Team Providers Care Scout Leaser Name Role Phone Unavailable Primary Care Provider Unavailabl e Encounter Details Date Type Department Care Team (Late st Contact Info) Description 07/14/2013 External Results XRay at [address] [place] [address] Provider, Scanning Social History Tobacco Use Types [...] AM EST Hospital Encounter Non-Invasive Cardiology Lab [facility] [place] [address] Arrived documented as of this encounter Procedures [...]
--- OUTSIDE RECORDS SUMMARY | 2023-11-03 11:23 | XMS_ITS | Encounter Summary ---
Author Organization [facility] [place] [address] Care Team Providers Care Elementary [employer] Principal Name Role Phone Lolly Oliveira MD Primary Care Provider [phone] Reason for Visit * Reason Comments Follow-up Encounter Details Date Type Department Care Team (Late st Contact Info) Description 06/06/2021 8:45 AM EDT Office Visit Dermatology at [address] [address] Clay Ramírez MD [address] [facility] [place] [address] Psoriasis, guttate Social History Tobacco Use Types [...] st Contact Info) Description 01/16/2024 10:00 AM [facility] Hospital Encounter [place] [address] Arrived documented as of this encounter Visit Diagnoses Diagnosis Psoriasis, guttate Other psoriasis documented in this encounter Care Teams Elementary School Principal Relationship Specialty Start Date End Date Lolly Oliveira MD [address] [place] [address] PCP - General 07/17/13 documented as of this encounter
--- OUTSIDE RECORDS SUMMARY | 2023-11-03 11:23 | XMS_ITS | Encounter Summary ---
[place] [address] Care Team Providers Care Cane Cutter Name Role Phone Lolly Oliveira MD Primary Care Provider [phone] Encounter Details Date Type Department Care Team (Late st Contact Info) Description 07/17/2013 [place] [phone] Lolly Oliveira MD [address] [place], [place] [id number] Social History Tobacco Use Types Packs/Day Years [...] AM EST Hospital Encounter Non-Invasive [place] [address] Arrived documented as of this encounter Procedures Procedure Name Priority Date/Time Associated Diagnosis Comments REQUEST FOR 2ND READ MAMMO Routine 07/17/2013 8:45 AM EDT documented in this encounter Results * Request for 2nd read Mammo (07/17/2013 8:45 AM EDT) Anatomical Region Laterality Modality Other 07/17/2013 8:45 AM EDT Narrative 07/17/2013 3:57 PM EDT INTERPRETATION OF OUTSIDE MAMMOGRAMS (PERFORMED ON 07/06/13 AND 07/14/13) FROM [facility] DATED 07/17/13: ?? DIAGNOSTIC IMAGING SUMMARY: [...] OUTSIDE MAMMOGRAMS (PERFORMED ON 07/06/13 AND 07/14/13) [facility] DATED 07/17/13: DIAGNOSTIC IMAGING [...] on filedocumented in this encounter Care Teams Cane Cutter Relationship Specialty Start Date End Date Lolly Oliveira MD [address] [place] [address] PCP - General 07/17/13 documented as of this encounter
--- OUTSIDE RECORDS SUMMARY | 2023-11-03 11:23 | XMS_ITS | Encounter Summary ---
Author Organization [facility] [place] [address] Care Team Providers Care Childcare Provider Name Role Phone Lolly Oliveira MD Primary Care Provider [phone] Encounter Details Date Type Department Care Team (Latest Contact Info) Description 07/17/2013 8:40 AM EDT - 07/17/2013 11:59 PM EDT Hospital Encounter XRay at [address] [place] [address] CLINIC, [facility] Discharge Disposition: Home Social [...] AM EST Hospital Encounter Non-Invasive [place] [address] Arrived documented as of this encounter Visit Diagnoses Not on filedocumented in this encounter Care Teams Childcare Provider Relationship Specialty Start Date End Date Lolly Oliveira MD [address] [place] [address] PCP - General 07/17/13 documented as of this encounter
--- OUTSIDE RECORDS SUMMARY | 2023-11-03 11:23 | XMS_ITS | Encounter Summary ---
Author Organization [facility] [place] [address] Care Team Providers Care Practice Management Consultant Name Role Phone Lolly Oliveira MD Primary Care Provider [phone] Encounter Details Date Type Department Care Team (Latest Contact Info) Description 07/18/2013 [place] [address] Alia Fraire MD [facility] [place] [address] Mammographic microcalcification (Primary Dx) Social History Tobacco [...] AM EST Hospital Encounter Non-Invasive [place] [address] Arrived documented as of this encounter Results [...] are present on specimen digital X-ray. A [employer]-Stereo 13 Cylinder marker clip was placed. [...] calcifications are present on specimendigital X-ray. A [employer] Eviva-Stereo 13 Cylinder marker clip was placed. [...] not safety representative of milk of calcium. Again, these [...] not safety representative of milk of calcium. Again, these have an amorphous andpunctate appearance and remain indeterminate. Stereotactic guided biopsy isrecommended. Alia Fraire MD IMG MAMMO ORDERABLES documented in this encounter Visit Diagnoses Diagnosis Mammographic microcalcification- Primary Mammographic microcalcification Mammographic microcalcification Mammographic microcalcification Mammographic microcalcification documented in this encounter Care Teams Practice Management Consultant Relationship Specialty Start Date End Date Lolly Oliveira MD [address] [place] [address] PCP - General 07/17/13 documented as of this encounter
--- OUTSIDE RECORDS SUMMARY | 2023-11-03 11:23 | XMS_ITS | Encounter Summary ---
Author Organization [facility] [place] [address] Care Team Providers Care Lumber Yard Worker Name Role Phone Lolly Oliveira MD Primary Care Provider [phone] Encounter Details Date Type Department Care Team (Late st Contact Info) Description 10/09/2021 Telephone Dermatology at [address] [address] Nora Meredith LPN Social History [...] st Contact Info) Description 01/16/2024 10:00 AM [facility] Hospital Encounter Non-[place] [address] Arrived documented as of this encounter Visit Diagnoses Not on filedocumented in this encounter Care Teams Lumber Yard Worker Relationship Specialty Start Date End Date Lolly Oliveira MD [address] [place] [address] PCP - General 07/17/13 documented as of this encounter
--- OUTSIDE RECORDS SUMMARY | 2023-11-03 11:23 | XMS_ITS | Encounter Summary ---
Author Organization [facility] [place] [address] Care Team Providers Care Energy Project Manager Name Role Phone Lolly Oliveira MD Primary Care Provider [phone] Encounter Details Date Type Department Care Team (Latest Contact Info) Description 07/26/2013 9:44 AM EDT - 07/26/2013 11:59 PM EDT Hospital En[place] [address] CLINIC, Lolly So MD [address] [place], [place] [id number] Mammographic microcalcification Discharge Disposition: Home Social History [...] AM EST Hospital Encounter Non-[place] [address] Arrived documented as of this encounter Procedures [...] are present on specimen digital X-ray. A [employer]-Stereo 13 Cylinder marker clip was placed. Cranio-caudal [...] mLs documented in this encounter Care Teams Energy Project Manager Relationship Specialty Start Date End Date Lolly Oliveira MD [address] [place] [address] PCP - General 07/17/13 documented as of this encounter
--- OUTSIDE RECORDS SUMMARY | 2023-11-03 11:23 | XMS_ITS | Encounter Summary ---
Author Organization [facility] [place] [address] Care Team Providers Care Manager Transportation Planning Name Role Phone Lolly Oliveira MD Primary Care Provider [phone] Reason for Referral * Diagnostic Test (Routine) - Closed Specialty Diagnoses / Procedures Referred By Contac t Referred To Contact Radiology Diagnoses Left bundle branch block Nonischemic cardiomyopathy Procedures MRI Cardiac Morphology Function With Flow Velocity Quantification [facility] Contrast MRI Cardiac Morphology Function wwo Contrast Lalit Mcmahon MD [facility] [place] [address] [place] [address] Referral ID Status Reason Start Date Expiration Date V isits Requested Visits Authorized [id number] Closed Specialty Service Requested 05/06/2022 11/07/2023 2 1 Reason for Visit * Diagnostic Test (Routine) - Closed Specialty Diagnoses / Procedures Referred By Contac t Referred To Contact Radiology Diagnoses Left bundle branch block Nonischemic cardiomyopathy Procedures MRI Cardiac Morphology Function With Flow Velocity Quantification o Contrast MRI Cardiac Morphology Function wwo Contrast Lalit Mcmahon MD [facility] [place] [address] [place] [address] Referral ID Status Reason Start Date Expiration Date V isits Requested Visits Authorized [id number] Closed Specialty Service Requested 05/06/2022 11/07/2023 2 1 Encounter Details Date Type Department Care Team (Latest Contact Info) Description 07/14/2022 9:08 AM EDT Hospital Encounter MRI at [facility] [place] [address] Lalit Mcmahon MD [facility] [place] [address] Left bundle branch block; Nonischemic cardiomyopathy Discharge [...] with spacer fluticasone propionate (Flonase) 50 mcg/actuation [place], Suspension 1 spray by Each Nare route [...] 1950 [address] [facility] [address] Female [phone] (home) No relevant phone numbers on file. Lolly Oliveira MD None Allergies Allergen Reactions ??? Sulfa (Sulfonamide Antibiotics) Date/Time of call: July 07, 2022/11:03 AM/ PREVIOUS MRI SCAN? HEIGHT: WEIGHT: SCHEDULED SCAN: MRI CARDIAC MORPHOLOGY FUNCTION WITH FLOW VELOCITY QUANTIFICATION WWO CONTRAST [[id number]] Order Questions Answers Where will study be performed? [facility] Radiology [120] SUBJECTIVE: Very Claustrophobic [...] ( [place] ) You must have a stage driver present when you check in. This patient has been informed that they require a stage driver to drive them home after this procedure. In the absence of a stage driver, IR will not be able to sedate for your scan. Pt verbalized understanding of these instructions during the pre-procedure education via phone. Yes Name of stage driver: Daughter Phone number: PRIOR SCAN DATE/S SEDATION TYPE SUCCESSFUL 07/14/22 MRI Cardiac Morphology Function with Flow Velocity Quantification wwo Contrast Ativan 1mg x 1 dose Pass Revised 08/03/17 documented in this encounter Plan of Treatment Upcoming Encounters Date Type Department Care Team (Late st Contact Info) Description 01/16/2024 10:00 AM [facility] Hospital Encounter Non-[place] [address] Arrived documented as of this encounter Procedures [...] questions please contact the health acute care clinical nurse specialist that requested your imaging first. ? Electronically signed by: Greyson Herron MD, [facility] ([phone]), at 07/15/2022 9:53 AM Narrative 07/15/2022 9:53 [...] have questions please contactthe health acute care clinical nurse specialist that requested your imaging first. Lalit [...] documented in this encounter Care Teams Manager Transportation Planning Relationship Specialty Start Date End Date Lolly Oliveira MD [address] [place] [address] PCP - General 07/17/13 documented as of this encounter
--- OUTSIDE RECORDS SUMMARY | 2023-11-03 11:23 | XMS_ITS | Encounter Summary ---
Author Organization [facility] [place] [address] Care Team Providers Care Top Waddy Name Role Phone Lolly Oliveira MD Primary Care Provider [phone] Reason for Visit * Diagnostic Test (Routine) - Closed Specialty Diagnoses / Procedures Referred By Contac t Referred To Contact Radiology Diagnoses Left bundle branch block Nonischemic cardiomyopathy Procedures MRI Cardiac Morphology Function With Flow Velocity Quantification wwo Contrast MRI Cardiac Morphology Function wwo Contrast Lalit Mcmahon MD [facility] [place] [address] [facility] [place] [address] Referral ID Status Reason Start Date Expiration Date V isits Requested Visits Authorized [id number] Closed Specialty Service Requested 05/06/2022 11/07/2023 2 1 Encounter Details Date Type Department Care Team (Latest Contact Info) Description 07/14/2022 9:09 AM EDT - 07/14/2022 11:59 PM EDT Hospital [place] [address] [facility] [place] [place] [address] Discharge Disposition: Home Social History Tobacco Use [...] with spacer fluticasone propionate (Flonase) 50 mcg/actuation [place], Suspension 1 spray by Each Nare route [...] AM EST Hospital Encounter Non-Invasive [place] [address] Arrived documented as of this [...] mLs documented in this encounter Care Teams Top Waddy Relationship Specialty Start Date End Date Lolly Oliveira MD [address] [place] [address] PCP - General 07/17/13 documented as of this encounter
--- OUTSIDE RECORDS SUMMARY | 2023-11-03 11:23 | XMS_ITS | Encounter Summary ---
[place] [address] Care Team Providers Care Turn Down Man Name Role Phone Lolly Oliveira MD Primary Care Provider [phone] Encounter Details Date Type Department Care Team [...] AM EST Hospital Encounter Non-Invasive [place] [address] Arrived documented as of this encounter Visit Diagnoses Not on filedocumented in this encounter Care Teams Turn Down Man Relationship Specialty Start Date End Date Lolly Oliveira MD [address] [place] [address] PCP - General 07/17/13 documented as of this encounter
--- OUTSIDE RECORDS SUMMARY | 2023-11-03 11:23 | XMS_ITS | Encounter Summary ---
[place] [address] Care Team Providers Care Mothercraft Nurse Name Role Phone Lolly Oliveira MD Primary Care Provider [phone] Encounter Details Date Type Department Care Team [...] AM EST Hospital Encounter Non-Invasive [place] [address] Arrived documented as of this encounter Visit Diagnoses Not on filedocumented in this encounter Care Teams Mothercraft Nurse Relationship Specialty Start Date End Date Lolly Oliveira MD [address] [place] [address] PCP - General 07/17/13 documented as of this encounter
--- OUTSIDE RECORDS SUMMARY | 2023-11-03 11:23 | XMS_ITS | Encounter Summary ---
Author Organization [facility] [place] [address] Care Team Providers Care Neon Technician Name Role Phone Lolly Oliveira MD Primary Care Provider Encounter Details Date Type Department Care Team (Late st Contact Info) Description 06/29/2011 Orders [place] [phone] Eleno Christian MD [facility] [place] [address] Social History Tobacco Use Types Packs/Day Years [...] AM EST Hospital Encounter Non-In[place] [address] Arrived documented as of this encounter Procedures [...] is a Non-reportable exam Eleno Christian MD [facility] FILM LIBRARY ORD ERABLES documented in this encounter Visit Diagnoses Not on filedocumented in this encounter Care Teams Neon Technician Relationship Specialty Start Date End Date Lolly Oliveira MD [address] [place] [address] PCP - General 07/17/13 documented as of this encounter
--- OUTSIDE RECORDS SUMMARY | 2023-11-03 11:23 | XMS_ITS | Encounter Summary ---
Author Organization [facility] [place] [address] Care Team Providers Care Chief Nurse Anesthetist Name Role Phone Lolly Oliveira MD Primary Care Provider [phone] Encounter Details Date Type Department Care Team (Latest Contact Info) Description 07/20/2013 9:26 AM EDT - 07/20/2013 11:59 PM EDT Hospital [place] [address] CLINIC, Lolly So MD [address] [place], [place] [id number] Mammographic microcalcification Discharge Disposition: Home Social History [...] EST Hospital Encounter Non-Invasive [place] [address] Arrived documented as of this encounter Procedures [...] does not layer and, therefore, are not traveling representative of milk of calcium. Again, these [...] does not layer and, therefore, are not traveling representative of milk of calcium. Again, these have an amorphous andpunctate appearance and remain indeterminate. Stereotactic guided biopsy isrecommended. Alia Fraire MD IMG MAMMO ORDERABLES documented in this encounter Visit Diagnoses Diagnosis Mammographic microcalcification documented in this encounter Care Teams Chief Nurse Anesthetist Relationship Specialty Start Date End Date Lolly Oliveira MD [address] [place] [address] PCP - General 07/17/13 documented as of this encounter
--- OUTSIDE RECORDS SUMMARY | 2023-11-03 11:23 | XMS_ITS | Encounter Summary ---
Author Organization [facility] [place] [address] Care Team Providers Care Behavioral Health Associate Name Role Phone Lolly Oliveira MD Primary Care Provider [phone] Encounter Details Date Type Department Care Team (Late Contact Info) Description 01/14/2022 Telephone Dermatology at [address] [address] Nora Meredith LPN Social History [...] return to phototherapy. New order sent to [facility]. Reviewed with patient Dr. Mar recommendation. She agrees with plan of care. Advised patient order will be sent to [facility]. She voiced understanding. documented in this encounter Plan of Treatment Upcoming Encounters Date Type Department Care Team (Late Contact Info) Description 01/16/2024 10:00 AM EST Hospital Encounter [place] [address] Arrived documented as of this encounter Visit Diagnoses Not on filedocumented in this encounter Care Teams Behavioral Health Associate Relationship Specialty Start Date End Date Lolly Oliveira MD [address] [place] [address] PCP - General 07/17/13 documented as of this encounter
--- OUTSIDE RECORDS SUMMARY | 2023-11-03 11:23 | XMS_ITS | Encounter Summary ---
Author Organization [facility] Address [facility] [place] [address] Care Team Providers Care Contact Officer Name Role Phone Lolly Oliveira MD Primary Care Provider [phone] Reason for Visit * Auth/Cert (Routine) Specialty Diagnoses / Procedures Referred By Contac t Referred To Contact Diagnoses Left bundle-branch block, unspecified Other cardiomyopathies Left bundle branch block [I44.7]Nonischemic cardiomyopathy [I42.8] Procedures PRG CATH PLMT LEFT HEART CATH & ARTS W/INJ & ANGIO IMG S&I ELECTROPHYSIOLOGY PROCEDURE Lalit Mcmahon MD [facility] [place] [address] [facility] Referral ID Status Reason Start Date Expiration Date Visits Re quested Visits Authorized [id number] 1 1 Encounter Details Date Type Department Care Team (Late st Contact Info) Description 07/23/2022 1:08 PM EDT Anesthesia [place] [address] Monae Gonzalez MD [facility] [place] [address] Maria Elena Snyder CRNA [facility] [place] [address] Anesthesia Record Procedure Summary Procedure Name Responsible [...] 1307; median cubital vein (antecubital fossa), right; xbpp-thc-evdyzx catheter system; Anatomical Landmarks; 20 gauge; 07/24/22; [...] 1343; metacarpal vein (top of hand), left; ugua-utj-ivuxsf catheter system; Anatomical Landmarks; US Not Used; [...] Procedure Summary Date: 07/23/22 Room / [facility] EP LABS Anesthesia Start: 1308 Anesthesia Stop: 1633 Procedure: ELECTROPHYSIOLOGY PROCEDURE (Left) Diagnosis: Left bundle branch block Nonischemic cardiomyopathy (Left bundle branch block [I44.7]Nonischemic cardiomyopathy [I42.8]) Providers: Lalit Mcmahon MD Responsible Provider: Monae Gonzalez MD Anesthesia Type: general ASA Status: 4 All Anesthesia Providers: Anesthesiologist: Monae Gonzalez MD; Dominique Sen MD DX BOARD OPERATOR: Maria Elena Snyder CRNA Vitals Value Taken Time BP 131/46 07/23/22 1700 Temp 36.7 ??C (98.1 ??F) 07/23/22 1627 Pulse 67 07/23/22 1703 Resp 14 07/23/22 1703 SpO2 98 % 07/23/22 1703 Pain Level Vitals shown include unvalidated device data. Patient Location: PACU/[facility] Level of Consciousness: Conscious but [...] and Nonischemic CM (EF 15-20%)who presents for MANAGEMENT SUPERVISOR-D. No prior anesthetic records. Pt states that [...] daughter/son and patient who. Plan discussed with DX BOARD OPERATOR. Anesthesia Screening documented in this encounter Plan of Treatment Upcoming Encounters Date Type Department Care Team (Late st Contact Info) Description 01/16/2024 10:00 AM [facility] Hospital Encounter Non[place] [address] Arrived documented as of this [...] mg documented in this encounter Care Teams Contact Officer Relationship Specialty Start Date End Date Lolly Oliveira MD [address] [place] [address] PCP - General 07/17/13 documented as of this encounter
--- OUTSIDE RECORDS SUMMARY | 2023-11-03 11:23 | XMS_ITS | Encounter Summary ---
Author Organization [facility] [place] [address] Care Team Providers Care Services Manager Name Role Phone Lolly Oliveira MD Primary Care Provider [phone] Reason for Referral * Consultation (Routine) - Closed Specialty Diagnoses / Procedures Referred By Contact Referred To Contact Electrophysiology / Cardiology Diagnoses Left bundle branch block Cardiomyopathy, unspecified type AT MINIMUM PT NEEDS CONSIDERATION FOR DEFIBRILLATOR, ALSO CANDIDATE FOR RESYNCHRONIZATION THERAPY HER QRS IS >0.16 Lolly Oliveira MD [address] [place] [address] [facility] [address] [place] [id number] Referral ID Status Reason Start Date Expiration Date V isits Requested Visits Authorized [id number] Closed Consult, Test & Treat PCP Updated and/or Approved 04/30/2022 04/30/2023 6 6 Encounter Details Date Type Department Care Team (Latest Contact Info) Description 04/30/2022 Transcribe Orders eDH Incoming Referrals [phone] Lolyl Oliveira MD [address] [place], [place] [id number] Left bundle branch block; Cardiomyopathy, unspecified type [...] AM EST Hospital Encounter Non-[place] [address] Arrived Scheduled Referrals Name Type Priority Associated Diagnoses Orde r Schedule Referral to Cardiology Outpatient Referral Routine Left bundle branch block Cardiomyopathy, Unspecified Type Ordered: 04/30/2022 documented as of this encounter Visit Diagnoses Diagnosis Left bundle branch block Other left bundle branch block Cardiomyopathy, unspecified type documented in this encounter Care Teams Services Manager Relationship Specialty Start Date End Date Lolly Oliveira MD [address] [place] [address] PCP - General 07/17/13 documented as of this encounter
--- OUTSIDE RECORDS SUMMARY | 2023-11-03 11:23 | XMS_ITS | Encounter Summary ---
[place] [address] Care Team Providers Care Group Leader Name Role Phone Lolly Oliveira MD Primary Care Provider [phone] Encounter Details Date Type Department Care Team (Latest Contact Info) Description 07/26/2013 9:45 AM EDT - 07/26/2013 11:59 PM EDT Hospital [place] [address] Mammographic microcalcification Social History Tobacco Use Types [...] AM EST Hospital Encounter Non[place] [address] Arrived documented as of this encounter Procedures Procedure Name Priority Date/Time Associated Diagnosis Comments SURGICAL PATHOLOGY REPORT Routine 07/26/2013 12:12 PM EDT MAMMO SPECIMEN IMAGING DURING BIOPSY Routine 07/26/2013 11:58 AM EDT Mammographic microcalcification documented in this encounter Results * Surgical Pathology Report (07/26/2013 12:12 PM EDT) Final Diagnosis ? [facility] ? Provider: ?? ELENO CHRISTIAN ?? Pt. Name: ?? JING ALVARENGA ? Acc #: ?[id number] ?Pt. ? Col Date: ?? 07/26/2013 ? [...] Partially fragmented, fibrofatty needle core biopsies. ? [facility] ? Provider: ?? ELENO CHRISTIAN ?? Pt. Name: ?? JING ALVARENGA ? Acc #: ?[id number] ?Pt. ? Col Date: ?? 07/26/2013 ? [...] FCD, adenosis, DCIS 07/28/2013 8:[address] [facility] BREAST STRUCTURE / Unknown 07/26/2013 12:12 PM EDT 07/26/2013 12:12 PM EDT Eleno Christian MD PATHOLOGY/CYTOLOGY O RDERABLES Performing Organization Address City/State/[facility] Co ct Phone Number [facility] [place] [address] * Mammo Specimen Imaging During Biopsy (07/26/2013 [...] microcalcification documented in this encounter Care Teams Group Leader Relationship Specialty Start Date End Date Lolly Oliveira MD [address] [place] [address] PCP - General 07/17/13 documented as of this encounter
--- OUTSIDE RECORDS SUMMARY | 2023-11-03 11:23 | XMS_ITS | Encounter Summary ---
[place] [address] Care Team Providers Care Hobber Name Role Phone Lolly Oliveira MD Primary Care Provider [phone] Encounter Details Date Type Department Care Team [...] AM EST Hospital Encounter Non-Invasive [place] [address] Arrived documented as of this encounter Visit Diagnoses Not on filedocumented in this encounter Care Teams Hobber Relationship Specialty Start Date End Date Lolly Oliveira MD [address] [place] [address] PCP - General 07/17/13 documented as of this encounter
--- OUTSIDE RECORDS SUMMARY | 2023-11-03 11:23 | XMS_ITS | Encounter Summary ---
Author Organization [place] [address] Care Team Providers Care Mill Machinist Name Role Phone Lolly Oliveira MD Primary Care Provider [phone] Reason for Visit * Reason Comments Follow-up Encounter Details Date Type Department Care Team (Late st Contact Info) Description 07/02/2022 8:00 AM EDT Office Visit Dermatology at [address] [phone] Clay Ramírez MD [address] [facility] [place] [address] Psoriasis, guttate Social History Tobacco Use Types [...] st Contact Info) Description 01/16/2024 10:00 AM [facility] Hospital Encounter Non-Invasive [place] [address] Arrived documented as of this encounter Visit Diagnoses Diagnosis Psoriasis, guttate Other psoriasis documented in this encounter Care Teams Mill Machinist Relationship Specialty Start Date End Date Lolly Oliveira MD [address] [place] [address] PCP - General 07/17/13 documented as of this encounter
--- OUTSIDE RECORDS SUMMARY | 2023-11-03 11:23 | XMS_ITS | Encounter Summary ---
Author Organization [place] [address] Care Team Providers Care Studio Potter Name Role Phone Unavailable Primary Care Provider Unavailabl e Encounter Details Date Type Department Care Team (Late st Contact Info) Description 07/14/2013 [place] [phone] Eleno Christian MD [facility] [place] [address] Social History Tobacco Use Types Packs/Day Years [...] AM EST Hospital Encounter Non-[place] [address] Arrived documented as of this encounter Visit Diagnoses Not on filedocumented in this encounter
[2023-11-05 11:07] VITALS: BP 129/68; PULSE 67; O2SAT 95
--- OUTSIDE RECORDS SUMMARY | 2023-11-05 11:53 | XMS_ITS | Encounter Summary ---
Author Organization [facility] Address [address] [place] [address] Care Team Providers Care Print Production Coordinator Name Role Phone Unavailable Primary Care Provider Unavailabl e Encounter Details Date Type Department Care Team (Late st Contact Info) Description 11/07/2008 Orders Only [facility] Laboratory Services - [facility] ([facility] [address] [place] [address] Kenneth Parker MD [address] [place] [address] Social History Tobacco Use Types Packs/Day Years [...] ? LYLE, JING ? Accession #: ? [id number] ? : ? 1950 (Age: 58) ??F [...] Parker MD PATHOLOGY ORDERABLES Performing Organization Address City/State/[facility] Co de Phone Number [facility] [address] [place] [address] documented in this encounter Visit Diagnoses Not on filedocumented in this encounter
--- OUTSIDE RECORDS SUMMARY | 2023-11-05 11:53 | XMS_ITS | Encounter Summary ---
Author Organization [facility] Address [address] [place] [address] Care Team Providers Care Ovens Supervisor Name Role Phone Lolly Oliveira MD Primary Care Provider [phone] Encounter Details Date Type Department Care Team (Late st Contact Info) Description 11/13/2020 Lab Requisition [facility] Pathology & Laboratory Medicine - [address] [id number] Outr Resulting Lab, Provider Social History Tobacco [...] Outr Resulting Lab MICROBIOLOGY - GENERAL ORDERABLES [facility] [address] [place] [address] * COVID-19 TESTING (11/13/2020 7:30 EDT) COVID-19 rt-PCR Result Negative Negative 11/14/2020 11:46 EDT [facility] Comment: This test has [...] performed using the med SARS-CoV-2 assay ([employer] on the Med 6800 System Performing Lab Med [address] [facility] Lab 11/14/2020 11:46 EDT [facility] Swab 11/13/2020 7:30 EDT 11/13/2020 20:57 EDT Provider Outr Resulting Lab MICROBIOLOGY - GENERAL ORDERABLES [facility] [address] [place] [address] documented in this encounter Visit Diagnoses Not on filedocumented in this encounter Care Teams Ovens Supervisor Relationship Specialty Start Date End Date Lolly Oliveira MD [address] [place] [address] PCP - General 11/13/08 documented as of this encounter
--- OUTSIDE RECORDS SUMMARY | 2023-11-05 11:53 | XMS_ITS | Encounter Summary ---
Author Organization [facility] Address [address] [place] [address] Care Team Providers Care Manager Of Construction Name Role Phone Lolly Oliveira MD Primary Care Provider Encounter Details Date Type Department Care Team (Late st Contact Info) Description 02/11/2021 Lab Requisition [facility] Pathology & Laboratory Medicine - [address] [address] Outr Resulting Lab, Provider Social History Tobacco [...] Lab MICROBIOLOGY - GENERAL ORDERABLES [facility] [address] [place] [address] * COVID-19 TESTING (02/11/2021 8:00 EST) COVID-19 rt-PCR Result Negative Negative 02/12/2021 14:17 EST [facility] Comment: This test has not [...] was performed using the med SARS-CoV-2 assay ([employer] on the Med 6800 System Performing Lab Med [address] [facility] Lab 02/12/2021 14:17 EST [facility] Swab 02/11/2021 8:00 EST 02/11/2021 22:22 EST Provider Outr Resulting Lab MICROBIOLOGY - GENERAL ORDERABLES [facility] [address] [place] [address] documented in this encounter Visit Diagnoses Not on filedocumented in this encounter Care Teams Manager Of Construction Relationship Specialty Start Date End Date Lolly Oliveira MD [address] [place] [address] PCP - General 11/13/08 documented as of this encounter
--- OUTSIDE RECORDS SUMMARY | 2023-11-05 11:53 | XMS_ITS | Encounter Summary ---
Author Organization [facility] [place] [address] Care Team Providers Care Colorman Name Role Phone Lolly Oliveira MD Primary Care Provider [phone] Encounter Details Date Type Department Care Team (Latest Contact Info) Description 10/18/2023 10:00 AM EDT - 10/18/2023 11:59 PM EDT Hospital Encounter Non-[place] [address] Discharge Disposition: Home Social History Tobacco Use [...] spacer fluticasone propionate (Flonase) 50 mcg/actuation [place], Suspension 1 spray by Each Nare route daily as needed. documented as of this encounter Plan of Treatment Upcoming Encounters Date Type Department Care Team (Late st Contact Info) Description 01/16/2024 10:00 AM EST Hospital Encounter Non-[place] [address] Arrived documented as of this encounter Procedures [...] on filedocumented in this encounter Care Teams Colorman Relationship Specialty Start Date End Date Lolly Oliveira MD [address] [place] [address] PCP - General 07/17/13 documented as of this encounter
--- OUTSIDE RECORDS SUMMARY | 2023-11-05 11:53 | XMS_ITS | Encounter Summary ---
Author Organization [facility] Address [address] [place] [address] Care Team Providers Care Environmental Services Director Name Role Phone Lolly Oliveira MD Primary Care Provider [phone] Encounter Details Date Type Department Care Team (Late st Contact Info) Description 03/21/2019 Lab Requisition [facility] Pathology & Laboratory Medicine - [address] [address] Unknown, Provider, Social History Tobacco Use Types [...] 911 pg/mL 03/22/2019 11:52 EST [facility] Blood VENOUS BLOOD / Unknown 03/16/2019 9:25 EST 03/21/2019 21:35 EST Provider Unknown CHEMISTRY & BLOOD GA S ORDERABLES [facility] [address] [place] [address] documented in this encounter Visit Diagnoses Not on filedocumented in this encounter Care Teams Environmental Services Director Relationship Specialty Start Date End Date Lolly Oliveira MD [address] [place] [address] PCP - General 11/13/08 documented as of this encounter
--- OUTSIDE RECORDS SUMMARY | 2023-11-05 11:53 | XMS_ITS | Referral Summary ---
Author Organization [facility] Address [address] [place] [address] Care Team Providers Care Brokerage Branch Manager Name Role Phone Lolly Oliveira MD Primary Care Provider [phone] Social History Tobacco Use Types Packs/Day Years Used Date Smoking Tobacco: Never Assessed Sex and Gender Information Value Date Recorded Sex Assigned at Not on file Gender Identity Not on file Sexual Orientation Not on file Plan of Treatment Not on file Care Teams Brokerage Branch Manager Relationship Specialty Start Date End Date Lolly Oliveira MD [address] [place] [address] PCP - General 11/13/08
--- OUTSIDE RECORDS SUMMARY | 2023-11-05 11:53 | XMS_ITS | Clinical Summary ---
Author Organization [facility] [place] [address] Care Team Providers Care Deaf Teacher Name Role Phone Lolly Oliveira MD Primary Care Provider [phone] Allergies Active Allergy Reactions Criticality Noted Date [...] spacer Active fluticasone propionate (Flonase) 50 mcg/actuation [place], Suspension 1 spray by Each Nare route [...] PM EDT Hospital Encounter [place] [address] Discharge Disposition: Home from Last [...] AM EST Hospital Encounter Non-[place] [address] Arrived Health Maintenance Due Date Last Done [...] series) 11/07/2023 Medical Devices Implanted Type Area Investment Recovery Technician Device Identifier Shelf Expiration Date Model / Serial / Lot Bsx: [id number]: 203057-5/18/2 023 Implanted: by Lalit Mcmahon MD (Quantity not on file) Defibrillator Chest Wall [employer] [id number] / [id number] / Bsx: 4674: 432333-2/18/2 023 Implanted: by Lalit Mcmahon MD (Quantity not on file) Lead Heart [employer] 4674 / [id number] / Bsx: [id number]: [id number] Implanted: by Lalit Mcmahon MD (Quantity not on file) Lead Heart [employer] [id number] / [id number] / Bsx: 0672: 582378-4/18/2 023 Implanted: by Lalit Mcmahon MD (Quantity not on file) Lead Heart [employer] 0672 / [id number] / Procedures Procedure Name Priority Date/Time Associated [...] Status decision made by: Patient Care Teams Deaf Teacher Relationship Specialty Start Date End Date Lolly Oliveira MD [address] [place] [address] PCP - General 07/17/13
--- OUTSIDE RECORDS SUMMARY | 2023-11-05 11:53 | XMS_ITS | Encounter Summary ---
Author Organization [facility] Address [address] [place] [address] Care Team Providers Care Electrical Wiring Lineman Name Role Phone Lolly Oliveira MD Primary Care Provider [phone] Encounter Details Date Type Department Care Team (Late st Contact Info) Description 06/16/2012 Results Only [facility] Laboratory Services - [facility] ([facility]) [address] [place], [place] [id number] Lolly Oliveira MD [address] [place], [place] [id number] Social History Tobacco Use Types Packs/Day Years [...] ? JING ALVARENGA ? Accession #: ? [id number] : ? 1950 (Age: 61) ??F ?Collect [...] MD PATHOLOGY ORDERABLES [facility] [address] [place] [address] documented in this encounter Visit Diagnoses Not on filedocumented in this encounter Care Teams Electrical Wiring Lineman Relationship Specialty Start Date End Date Lolly Oliveira MD [address] [place] [address] PCP - General 11/13/08 documented as of this encounter
--- OUTSIDE RECORDS SUMMARY | 2023-11-05 11:53 | XMS_ITS | Encounter Summary ---
Author Organization [facility] [place] [address] Care Team Providers Care Knife Cutter Name Role Phone Lolly Oliveira MD Primary Care Provider [phone] Encounter Details Date Type Department Care Team [...] AM EST Hospital Encounter Non-[place]vasive [place] [address] Arrived documented as of this encounter Visit Diagnoses Not on filedocumented in this encounter Care Teams Knife Cutter Relationship Specialty Start Date End Date Lolly Oliveira MD [address] [place] [address] PCP - General 07/17/13 documented as of this encounter
--- OUTSIDE RECORDS SUMMARY | 2023-11-05 11:53 | XMS_ITS | Encounter Summary ---
Author Organization [facility] Address [address] [place] [address] Care Team Providers Care Clinical Data Specialist Name Role Phone Lolly Oliveira MD Primary Care Provider [phone] Encounter Details Date Type Department Care Team (Late st Contact Info) Description 04/25/2009 Orders Only [facility] Laboratory Services - [facility] ([facility]) [address] [place], [place] [id number] Lolly Oliveira MD [address] [place], [place] [id number] Social History Tobacco Use Types Packs/Day Years [...] ? JING ALVARENGA ? Accession #: ? [id number] ? : ? 1950 (Age: 58) ??F [...] reviewed and electronically signed by: ? Helena [place], [place](ASCP) ? Report Date: ??04/29/2009 10:38 ? End of Report ? [facility] 04/25/2009 04/26/2009 Lolly Oliveira MD PATHOLOGY ORDERABLES [facility] [address] [place] [address] documented in this encounter Visit Diagnoses Not on filedocumented in this encounter Care Teams Clinical Data Specialist Relationship Specialty Start Date End Date Lolly Oliveira MD [address] [place] [address] PCP - General 11/13/08 documented as of this encounter
--- OUTSIDE RECORDS SUMMARY | 2023-11-05 11:53 | XMS_ITS | Encounter Summary ---
Author Organization [facility] Address [address] [place] [address] Care Team Providers Care Tile Presser Name Role Phone Lolly Oliveira MD Primary Care Provider [phone] Encounter Details Date Type Department Care Team (Late st Contact Info) Description 04/17/2005 Results Only [facility] conversion [address] [place] [address] Lolly Oliveira MD [address] [place], [place] [id number] Social History Tobacco Use Types Packs/Day Years [...] ? JING ALVARENGA ? Accession #: ? [id number] : ? 1950 (Age: 54) ??F ?Collect Date: ? 04/17/2005 Location: ? [facility] ? Receive Date: ? 04/21/2005 Provider: ?LOLLY OLIVEIRA MD Copy to: ? Specimen/Source: ?ThinPrep Pap Test, Cervix/Endocervix, processed on [employer]Prep Imaging System, with manual evaluation Last Menstrual [...] Oliveira MD PATHOLOGY ORDERABLES [facility] [address] [place] [address] documented in this encounter Visit Diagnoses Not on filedocumented in this encounter Care Teams Tile Presser Relationship Specialty Start Date End Date Lolly Oliveira MD [address] [place] [address] PCP - General 11/13/08 documented as of this encounter
--- OUTSIDE RECORDS SUMMARY | 2023-11-05 11:53 | XMS_ITS | Encounter Summary ---
Author Organization [facility] [place] [address] Care Team Providers Care Vocational Placement Specialist Name Role Phone Lolly Oliveira MD Primary Care Provider [phone] Encounter Details Date Type Department Care Team (Latest Contact Info) Description 07/20/2023 10:00 AM EDT - 07/20/2023 11:59 PM EDT Hospital Encounter Non[place] [address] Discharge Disposition: Home Social History Tobacco Use [...] with spacer fluticasone propionate (Flonase) 50 mcg/actuation [place], Suspension 1 spray by Each Nare route daily as needed. documented as of this encounter Plan of Treatment Upcoming Encounters Date Type Department Care Team (Late st Contact Info) Description 01/16/2024 10:00 AM [facility] Hospital Encounter Non-[place] [address] Arrived documented as of this encounter Procedures [...] filedocumented in this encounter Care Teams Vocational Placement Specialist Relationship Specialty Start Date End Date Lolly Oliveira MD [address] [place] [address] PCP - General 07/17/13 documented as of this encounter
--- OUTSIDE RECORDS SUMMARY | 2023-11-05 11:53 | XMS_ITS | Encounter Summary ---
Author Organization [facility] Address [address] [place] [address] Care Team Providers Care Part Time Receptionist Name Role Phone Lolly Oliveira MD Primary Care Provider [phone] Encounter Details Date Type Department Care Team (Late st Contact Info) Description 04/12/2007 Results Only [facility] [place] conversion [address] [place] [address] Lolly Oliveira MD [address] [place], [place] [id number] Social History Tobacco Use Types Packs/Day Years [...] ? JING ALVARENGA ? Accession #: ? [id number] : ? 1950 (Age: 56) ??F ?Collect Date: ? 04/12/2007 Location: ? [facility] ? Receive Date: ? 04/13/2007 Provider: ?LOLLY OLIVEIRA MD Copy to: ? Specimen/Source: ?ThinPrep Pap Test, Cervix/Endocervix, processed on Simulmedia ThinPrep Imaging System, with manual evaluation Last [...] Oliveira MD PATHOLOGY ORDERABLES [facility] [address] [place] [address] documented in this encounter Visit Diagnoses Not on filedocumented in this encounter Care Teams Part Time Receptionist Relationship Specialty Start Date End Date Lolly Oliveira MD [address] [place] [address] PCP - General 11/13/08 documented as of this encounter
--- OUTSIDE RECORDS SUMMARY | 2023-11-05 11:53 | XMS_ITS | Encounter Summary ---
Author Organization [facility] [place] [address] Care Team Providers Care Diamond Assorter Name Role Phone Lolly Oliveira MD Primary Care Provider [phone] Reason for Visit * Reason Comments Follow-up 8 weeks UVB treatmen t twice weekly Encounter Details Date Type Department Care Team (Late st Contact Info) Description 07/19/2023 11:00 AM EDT Office Visit Dermatology at [address] [phone] Clay Ramírez MD [address], ERIKA A DERMATOLOGY [place], [place] [id number] Psoriasis Social History Tobacco Use Types Packs/Day [...] [facility] Hospital Encounter [place] [address] Arrived documented as of this encounter Visit Diagnoses Diagnosis Psoriasis Other psoriasis documented in this encounter Care Teams Diamond Assorter Relationship Specialty Start Date End Date Lolly Oliveira MD [address] [place] [address] PCP - General 07/17/13 documented as of this encounter
--- OUTSIDE RECORDS SUMMARY | 2023-11-05 11:53 | XMS_ITS | Encounter Summary ---
Author Organization [facility] Address [address] [place] [address] Care Team Providers Care Install Technician Name Role Phone Lolly Oliveira MD Primary Care Provider [phone] Encounter Details Date Type Department Care Team (Late st Contact Info) Description 05/27/2021 Lab Requisition [facility] Pathology & Laboratory Medicine - [address] [address] Iman Moran, DO [address] [place], [place] [id number] Encounter for other general examination Social History [...] management options, if applicable. 05/30/2021 13:31 EDT [facility] Final Diagnosis A. COLON, POLYP AT 90 CM, BIOPSY/POLYPECTOM Y: - Tubular adenoma. 05/30/2021 13:31 [facility] Attestation By the signature below, the attending physician certifies that they have 1) personally conducted a gross and/or microscopic examination of the described specimen(s), and/or personally interpreted the results of laboratory testing of the described specimen(s), and 2) personally rendered or confirmed the above diagnosis. 05/30/2021 13:31 [facility] at 1331 Clinical History Severe diverticula and polypectomy x1 05/30/2021 13:31 [facility] Gross Description A. Received in formalin labelled with proper patient identification (initials J, K) and colon polyp x1 at 90 cm is a light pineda polypoid tissue measuring 0.2 x 0.2 x 0.2 cm. Submitted intact in A1. MICKEY CARLOS(ASCP) 05/27/2021 19:11 05/30/2021 13:31 [facility] Performing Lab [facility] 05/30/2021 13:31 [facility] Scanned Images 05/30/2021 13:31 [facility] Tissue ENTIRE COLON / Unknown 05/27/2021 11:23 EDT 05/27/2021 16:33 EDT Iman Moran DO PATHOLOGY ORDERABLES [facility] [address] [place] [address] documented in this encounter Visit Diagnoses Diagnosis Encounter for other general examination documented in this encounter Care Teams Install Technician Relationship Specialty Start Date End Date Lolly Oliveira MD [address] [place] [address] PCP - General 11/13/08 documented as of this encounter
--- OUTSIDE RECORDS SUMMARY | 2023-11-05 11:53 | XMS_ITS | Encounter Summary ---
Author Organization [facility] Address [address] [place] [address] Care Team Providers Care Mold Mover Name Role Phone Lolly Oliveira MD Primary Care Provider [phone] Encounter Details Date Type Department Care Team (Late st Contact Info) Description 02/20/2020 Lab Requisition [facility] Pathology & Laboratory Medicine - [address] [id number] Outr Resulting Lab, Provider Social History Tobacco [...] in accordance with CLIA regulations, [employer] (CAP) guidelines (May 25, 2019), and FDA guidance (May 06, 2019). This test is only for use under the Food and Drug Administration's Emergency Use Authorization. Swab ENTIRE NASOPHARYNX / Unknown 02/19/2020 16:30 EST 02/20/2020 16:09 EST Provider Outr Resulting Lab MICROBIOLOGY - GENERAL ORDERABLES [facility] [place], [place] * COVID-19 TESTING (02/19/2020 16:30 EST) COVID-19 rt-PCR Result NEGATIVE Negative 02/22/2020 23:41 EST [facility] Comment: 2019-novel Coronavirus (2019-nCoV) [...] in accordance with CLIA regulations, College of [employer] (CAP) guidelines (May 25, 2019), and FDA guidance (May 06, 2019). This test is only for use under the Food and Drug Administration's Emergency Use Authorization. Performing Lab [facility] 02/22/2020 23:41 EST [facility] Swab 02/19/2020 16:3 0 EST 02/20/2020 16:09 EST Provider Outr Resulting Lab MICROBIOLOGY - GENERAL ORDERABLES [facility] [address] [place] [address] [facility] [place], [place] documented in this encounter Visit Diagnoses Not on filedocumented in this encounter Care Teams Mold Mover Relationship Specialty Start Date End Date Lolly Oliveira MD [address] [place] [address] PCP - General 11/13/08 documented as of this encounter
--- OUTSIDE RECORDS SUMMARY | 2023-11-05 11:53 | XMS_ITS | Encounter Summary ---
Author Organization [facility] Address [address] [place] [address] Care Team Providers Care Machine Hostler Name Role Phone Lolly Oliveira MD Primary Care Provider [phone] Encounter Details Date Type Department Care Team (Late st Contact Info) Description 05/29/2002 Results Only [facility] [place] conversion [address] [place] [address] Silvia Diehl, [address] [place] [phone] Social History Tobacco Use Types Packs/Day Years [...] ? JING MOTT ? Accession #: ? [id number] : ? 1950 (Age: 51) ??F ?Collect Date: ? 05/29/2002 Location: ? [facility] ? Receive Date: ? 05/31/2002 Provider: ?SILVIA DIEHL JOURNALISM TEACHER Copy to: ? Specimen/Source: ?ThinPrep Pap Test, [...] Report [facility] 05/29/2002 05/31/2002 Silvia Diehl JOURNALISM TEACHER PATHOLOGY ORDERABLES [facility] [address] [place] [address] documented in this encounter Visit Diagnoses Not on filedocumented in this encounter Care Teams Machine Hostler Relationship Specialty Start Date End Date Lolly Oliveira MD [address] [place] [address] PCP - General 11/13/08 documented as of this encounter
--- OUTSIDE RECORDS SUMMARY | 2023-11-05 11:53 | XMS_ITS | Clinical Summary ---
Author Organization [facility] Address [address] [place] [address] Care Team Providers Care Health Information Managers Name Role Phone Lolly Oliveira MD Primary Care Provider [phone] Social History Tobacco Use Types Packs/Day Years [...] COVID-19 Vaccine ( season) 2022 Care Teams Health Information Managers Relationship Specialty Start Date End Date Lolly Oliveira MD [address] [place], [place] [address] PCP - General 11/13/08
--- OUTSIDE RECORDS SUMMARY | 2023-11-05 11:53 | XMS_ITS | Encounter Summary ---
Author Organization [facility] Address [address] [place] [address] Care Team Providers Care Upset Welding Machine Operator Name Role Phone Lolly Oliveira MD Primary Care Provider [phone] Encounter Details Date Type Department Care Team (Late st Contact Info) Description 04/01/2005 Results Only [facility] [place] conversion [address] [place] [address] Blair Dukes MD [address] [place] [phone] Social History Tobacco Use Types Packs/Day Years [...] ? JING ALVARENGA ? Accession #: ? [id number] ? : ? 1950 (Age: 54) ??F [...] (A). Received in Hollande' s fixative labelled [place] and #2 ??transverse colon bx is a single 0.2 x 0.2 x 0.2 cm tissue, submitted intact as (B). ??(Dr. Lechuga)/[facility] End of Report [facility] 04/01/2005 04/02/2005 15: 24 EST Blair Dukes MD PATHOLOGY ORDERABLES [facility] [address] [place] [address] documented in this encounter Visit Diagnoses Not on filedocumented in this encounter Care Teams Upset Welding Machine Operator Relationship Specialty Start Date End Date Lolly Oliveira MD [address] [place] [address] PCP - General 11/13/08 documented as of this encounter
--- OUTSIDE RECORDS SUMMARY | 2023-11-05 11:53 | XMS_ITS | Encounter Summary ---
Author Organization [facility] Address [address] [place] [address] Care Team Providers Care Line Servicer Name Role Phone Lolly Oliveira MD Primary Care Provider [phone] Encounter Details Date Type Department Care Team (Late st Contact Info) Description 03/06/2003 Results Only [facility] [place] conversion [address] [place] [address] Lolly Oliveira MD [address] [place], [place] [phone] Social History Tobacco Use Types Packs/Day Years [...] MD PATHOLOGY ORDERABLES Performing Organization Address City/State/[facility] Co de Phone Number [facility] [address] [place] [address] documented in this encounter Visit Diagnoses Not on filedocumented in this encounter Care Teams Line Servicer Relationship Specialty Start Date End Date Lolly Oliveira MD [address] [place] [address] PCP - General 11/13/08 documented as of this encounter
--- OUTSIDE RECORDS SUMMARY | 2023-11-05 11:53 | XMS_ITS | Encounter Summary ---
Author Organization [facility] Address [address] [place] [address] Care Team Providers Care Sterilizer Operator Name Role Phone Lolly Oliveira MD Primary Care Provider [phone] Encounter Details Date Type Department Care Team (Late st Contact Info) Description 05/02/2004 Results Only [facility] - [place] conversion [address] [place] [address] Lolly Oliveira MD [address] [place], [place] [phone] Social History Tobacco Use Types Packs/Day Years [...] 68. [facility] Report Status Final [id number] [facility] 05/02/2004 9:32 EST 05/10/2004 9:32 EST Lolly Oliveira MD MICROBIOLOGY - GENER AL ORDERABLES [facility] [address] [place] [address] * CYTOPATHOLOGY (05/02/2004 0:00 EST) Pathology Report: CYTOPATHOLOGY REPORT Reports generated via electronic interface contain original data; however they are lacking the format of the original report. Caution should be taken when reading/interpreti ng unformatted reports. Name: ? JING ALVARENGA ? Accession #: ? [id number] : ? 1950 (Age: 53) ??F ?Collect [...] Oliveira MD PATHOLOGY ORDERABLES Performing Organization Address City/State/[facility] Co de Phone Number [facility] [address] [place] [address] documented in this encounter Visit Diagnoses Not on filedocumented in this encounter Care Teams Sterilizer Operator Relationship Specialty Start Date End Date Lolly Oliveira MD [address] [place] [address] PCP - General 11/13/08 documented as of this encounter
--- OUTSIDE RECORDS SUMMARY | 2023-11-05 11:54 | XMS_ITS | Encounter Summary ---
Author Organization [facility] [place] [address] Care Team Providers Care Sales Consulting Director Name Role Phone Lolly Oliveira MD Primary Care Provider [phone] Encounter Details Date Type Department Care Team (Latest Contact Info) Description 01/21/2023 10:00 AM EST - 01/21/2023 11:59 PM EST Hospital Encounter [place] [phone] Discharge Disposition: Home Social History Tobacco Use [...] with spacer fluticasone propionate (Flonase) 50 mcg/actuation [place], Suspension 1 spray by Each Nare route [...] AM EST Hospital Encounter Non-[place] [address] Arrived documented as of this [...] filedocumented in this encounter Care Teams Sales Consulting Director Relationship Specialty Start Date End Date Lolly Oliveira MD [address] [place] [address] PCP - General 07/17/13 documented as of this encounter
--- OUTSIDE RECORDS SUMMARY | 2023-11-05 11:54 | XMS_ITS | Encounter Summary ---
Author Organization [facility] [place] [address] Care Team Providers Care Sight Effects Specialist Name Role Phone Lolly Oliveira MD Primary Care Provider [phone] Encounter Details Date Type Department Care Team (Late st Contact Info) Description 05/03/2023 Telephone Cardiology at [address] [phone] Lalit Mcmahon MD [facility] [place] [address] Social History Tobacco Use Types Packs/Day Years Used Date Smoking Tobacco: Never Alcohol Use Standard Drinks/Week Comments Not Currently 0 (1 standard drink = 0.6 oz pur e alcohol) [facility] Inpatient Questions Answer Date Recorded Does Anyone [...] AM EST Hospital Encounter Non-Invasive [place] [address] Arrived documented as of this encounter Visit Diagnoses Not on filedocumented in this encounter Care Teams Sight Effects Specialist Relationship Specialty Start Date End Date Lolly Oliveira MD [address] [place] [address] PCP - General 07/17/13 documented as of this encounter
--- OUTSIDE RECORDS SUMMARY | 2023-11-05 11:54 | XMS_ITS | Encounter Summary ---
Author Organization [place] [address] Care Team Providers Care Scrap Sorter Name Role Phone Lolly Oliveira MD Primary Care Provider [phone] Reason for Visit * Reason Onset Date Comments Post Procedure Call 07/30/2022 Encounter Details Date Type Department Care Team (Late st Contact Info) Description 07/30/2022 Notes Only Cardiology at [address] [phone] Rosenda Sutton, RN Post Procedure Call Social History Tobacco Use Types Packs/Day Years Used Date Smoking Tobacco: Never Alcohol Use Standard Drinks/Week Comments Not Currently 0 (1 standard drink = 0.6 oz pur e alcohol) [facility] Inpatient Questions Answer Date [...] 07/30/2022 9:59 AM EDTSummary: Post Procedure Call: WATER POLLUTION SPECIALIST implant EP RN Post-Procedure Note: Date of Follow Up Call: 07/30/2022 Spoke With: Patient Procedure Type (choose all that apply): ICD Performing MIRLANDE Mcmahon Date of Procedure: 07/23/2022 Date of Discharge: 07/24/2022 Follow Up EP Visit Scheduled?: No No Follow Up Visit Reason: Follow up outside Outside Location: [facility] Date of Non EP Visit: 08/12/2022 [...] Note: Follow-up Recommendations for Providers: - s/p WATER POLLUTION SPECIALIST-D implant - post implant QRS 130 ms - reviewed post-implant instructions - no medication changes - Follow up in device clinic for wound/device check in ~10 days??([facility]) Wound Care: -Wound will heal in [...] [place] [facility] Encounter Non-[place] [address] Arrived documented as of this encounter Visit Diagnoses Not on filedocumented in this encounter Care Teams Scrap Sorter Relationship Specialty Start Date End Date Lolly Oliveira MD [address] [place] [address] PCP - General 07/17/13 documented as of this encounter
--- OUTSIDE RECORDS SUMMARY | 2023-11-05 11:54 | XMS_ITS | Encounter Summary ---
Author Organization [facility] [place] [address] Care Team Providers Care Physics And Astronomy Professor Name Role Phone Lolly Oliveira MD Primary Care Provider [phone] Encounter Details Date Type Department Care Team (Late st Contact Info) Description 01/29/2023 Notes Only Cardiology at [address] [address] Merle Lin PA [facility] [place] [address] Social History Tobacco Use Types Packs/Day Years [...] pdf document Date of transmission: 01/29/2023 Device art editor: BSI Device type: WELCOME DESK AGENT-D Presenting rhythm: /RVP/LVP AP 21% Right FLASK CLEANER 100% Left FLASK CLEANER: 100% Battery: 10.5 years Heart[employer]ic Index rising in setting of increasing S3 intensity, increasing respiratory rate, increasing night heart rate, and increasing mean heart rate. MICKEY Villa 01/29/2023 9:06 AM documented in this encounter Plan of Treatment Upcoming Encounters Date Type Department Care Team (Late st Contact Info) Description 01/16/2024 10:00 AM EST Hospital Encounter Non-Invasive [place] [address] Arrived documented as of this encounter Visit Diagnoses Not on filedocumented in this encounter Care Teams Physics And Astronomy Professor Relationship Specialty Start Date End Date Lolly Oliveira MD [address] [place] [address] PCP - General 07/17/13 documented as of this encounter
--- OUTSIDE RECORDS SUMMARY | 2023-11-05 11:54 | XMS_ITS | Encounter Summary ---
Author Organization [facility] Address [facility] [place] [address] Care Team Providers Care Cotton Inspector Name Role Phone Lolly Oliveira MD Primary Care Provider [phone] Reason for Visit * Auth/Cert (Routine) Specialty Diagnoses / Procedures Referred By Contac t Referred To Contact Diagnoses Left bundle-branch block, unspecified Other cardiomyopathies Left bundle branch block [I44.7]Nonischemic cardiomyopathy [I42.8] Procedures PRG CATH PLMT LEFT HEART CATH & ARTS W/INJ & ANGIO IMG S&I ELECTROPHYSIOLOGY PROCEDURE Lalit Mcmahon MD [facility] [place] [address] [facility] Referral ID Status Reason Start Date Expiration Date Visits Re quested Visits Authorized [id number] 1 1 Encounter Details Date Type Department Care Team (Latest Contact Info) Description 07/23/2022 11:39 AM EDT - 07/24/2022 10:23 AM EDT Hospital [place] [phone] Lalit Mcmahon MD [facility] [place] [address] Left bundle branch block; Nonischemic cardiomyopathy; Cardiac resynchronization therapy defibrillator (DRAMATIC COACH-D) in place Discharge Disposition: Home Social History [...] Luna Mott Patient Age: 71 y.o. Language: Pashto Race: White Ethnicity: Not nor Admit date: 07/23/2022 Discharge date and time: 07/24/22 Attending Physician: Lalit Mcmahon MD Discharge Physician: Lalit Mcmahon MD Follow-up Recommendations for Providers: - s/p DRAMATIC COACH-D implant - post implant QRS 130 ms - reviewed post-implant instructions - no medication changes - Follow up in device clinic for wound/device check in ~10 days ([facility]) Inpatient Provider Contact Information: Cardiac Electrophysiology - Discharge Diagnoses (Hospital Problems) and Secondary Diagnoses (Chronic Problems): Active Hospital Problems Diagnosis ??? HFrEF (heart failure with reduced ejection fraction) Resolved Hospital Problems No resolved problems to display. Active Non-Hospital Problems Diagnosis ??? Dermatofibroma ??? Nevus ??? Solar lentigo Operations/Major Procedures: 07/23/22: [facility] DRAMATIC COACH-D implant History of Presentation: 71 y.o. female with a history of HFrEF, LBBB, QRS >150, NYHA II who is POD#1 of DRAMATIC COACH-D implant ([employer]). Hospital Course: Elective admission for DRAMATIC COACH-D implant Admitted post-implant for pain management, telemetry [...] (heart failure with reduced ejection fraction) [I50.20] DRAMATIC COACH-D implant Admission Condition: good Indication for Admission: [...] g Refills: 3 fluticasone propionate 50 mcg/actuation [place], Suspension Commonly known as: Flonase 1 spray [...] incision. Make sure to use a cloth finishing range operator (such as a towel) in between [...] F. The office scheduling phone number is [phone]. ARM MOVEMENT RESTRICTIONS POST-IMPLANT - Do not [...] please call the Cardiac ElectrophysiologyTriage Nurse at [phone], option 3. General Instructions None Discharge References/Attachments [...] incision. Make sure to use a cloth finishing range operator (such as a towel) in between [...] F. The office scheduling phone number is [phone]. ARM MOVEMENT RESTRICTIONS POST-IMPLANT - Do not [...] please call the Cardiac ElectrophysiologyTriage Nurse at [phone], option 3. documented in this encounter Medications [...] with spacer fluticasone propionate (Flonase) 50 mcg/actuation [place], Suspension 1 spray by Each Nare route [...] Cardiac Electrophysiology Post-Implant Device Interrogation Luna Mott [id number] 07/24/2022 History: Luna Mott is a 71 y.o. female with a history of HFrEF, LBBB, QRS >150, NYHA II who is POD#1 of DRAMATIC COACH-D implant ([employer]). Overall feels well this morning. Ready [...] WOB Neuro- A&Ox3 Device Interrogation: Data ?? Quilt Sewer Model # Serial # Generator [employer] [id number] Atrial Lead [employer] [id number] [id number] RV Lead [employer] 0672 [id number] LV Lead [employer] [id number] ?? Diagnostics Pacing Mode: DDD 60-130 Underlying Rhythm: [place] Atrial Episodes: None Ventricular Episodes: None FINAL PROGRAMMING: Pacing: Mode Lower rate (ppm) Upper rate (ppm) ?? DDD 60 130 VF: Rate (bpm) #Antitachycardia pacing First shock energy (J) ?? 200 Quick convert 41 VT: 170 Monitor only Monitor only ? Battery and Leads Impedances (ohms) Sensing (mV) Thresholds HV RA RV LV RA RV LV RA RV LV 73 [phone] (LVa) 7.7 13.1 >25 0.4V @ 0.4 ms 0.4V @ 0.4 ms 0.5 V @ 1.0 ms POD#1 CXR: All leads in nominal positioning Impression: 71 y.o. female who is s/p DRAMATIC COACH-D implant for LBBB, NYHA II, HFrEF. - Appropriate device function post-implant - CXR negative for post-implant complications - Changed sensed AV delay from 130 to 110 Plan: 1. Reviewed standard post-implant discharge instructions (see patient instructions) including arm restrictions, wound care, bathing, and driving 2. No medication changes. 3. Follow up in device clinic for wound/device check in ~10 days ([facility]) Fadi Nunez MD 07/24/2022 Pager: [phone] I met with the patient today and [...] agreement. ? Dr. Lalit Mcmahon, electrophysiology attending ([id number]) * Zaria Wright RN - 07/23/2022 8:28 [...] HF, QRS > 150 ms presents for DRAMATIC COACH-D placement. ROS: Denies recent fevers or chills [...] 0.9) flush 5 mL 5 mL Intravenous [id number] ramos MD ??? sodium chloride 0.9 % [...] HF, QRS > 150 ms presents for DRAMATIC COACH-D placement. Backup would be LBBAP lead. Antibiotics: cefazolin Rationales for, intended benefits and potential risk of planned procedures reviewed. The patient indicated understanding and agreement with the plan. Informed consent signed. Procedure checklist completed. Fadi Nunez MD Cardiac Electrophysiology Fellow [facility] Pager [phone] 07/23/2022 I met with the patient today [...] agreement. ? Dr. Lalit Mcmahon, electrophysiology attending ([id number]) documented in this encounter Miscellaneous Notes * Brief Op Note - Lalit Mcmahon MD - 07/23/2022 4:04 PM EDT Brief Operative Note Patient Name: Luna Mott : [id number] MR#: [id number] Case Date: 07/23/2022 Surgeon: Surgeon(s) and Role: [...] AM EST Hospital Encounter Non-Invasive [place] [address] Arrived Scheduled Orders Name Type Priority Associated Diagnoses Orde r Schedule EKG 12 Lead ECG Routine Cardiac resynchronization therapy defibrillator (DRAMATIC COACH-D) in place One Time for 1 Occurrences [...] (Bezet) 522 ms MUSE SYSTEM Calculated R [place] 78 degrees MUSE SYSTEM Calculated T [place] -71 degrees MUSE SYSTEM INTERPRETATION AV dual-paced [...] who have questions please contact the health caregivers homecare that requested your imaging first. ? Narrative [...] patients who have questions please contactthe health caregivers homecare that requested your imaging first. Lalit Mcmahon MD IMG DX ORDERABLES * ELECTROPHYSIOLOGY PROCEDURE (07/23/2022 1:11 PM EDT) Anatomical Region Laterality Modality Other Narrative 07/23/2022 4:24 PM EDT Table formatting from the original result was not included. BIVENTRICULAR ICD IMPLANTATION Truck Hop: Lalit Mcmahon MD Fellow: Fadi Nunez MD [...] lateral branch of the CS in the YAKUT view. This branch was cannulated with a [...] the entire procedure. LEAD AND GENERATOR DATA: Quilt Sewer Model # Serial # Generator [employer] [id number] Atrial Lead [employer] 7841 [id number] RV Lead [employer] 0672 [id number] LV Lead [employer] 4674 [id number] PACE/SENSE DATA: Sensed wave (mV) Threshold (V) [...] (cGycm2) 300 CONCLUSIONS: Successful implantation of a [employer] biventricular ICD for primary prevention and treatment of symptoms related to congestive heart failure. Follow up in EP clinic in 1-2 months. Procedures performed: new ICD system ( cpt 95913-O1); implant LV lead at time of ICD insertion (cpt 71836) I have read, edited and approve of this report: Lalit Mcmahon MD S Cardiac Electrophysiology 07/23/2022 4:22 PM Procedure Note Lalit Mcmahon MD - 07/23/2022 BIVENTRICULAR ICD IMPLANTATION Truck Hop: Lalit Mcmahon MD Fellow: Fadi Nunez MD [...] appropriate lateralbranch of the CS in the YAKUT view. This branch was cannulated with a [...] in the entireprocedure. LEAD AND GENERATOR DATA: Quilt Sewer Model # Serial # Generator [employer] [id number] Atrial Lead [employer] 7841 [id number] RV Lead [employer] 0672 599363 LV Lead [employer] 4674 [id number] PACE/SENSE DATA: Sensed wave (mV) Threshold (V) [...] (cGycm2) 300 CONCLUSIONS: Successful implantation of a [employer] biventricular ICD forprimary prevention and treatment of symptoms related to congestive heartfailure. Follow up in EP clinic in 1-2 months. Procedures performed: new ICD system ( cpt 40038-X2); implant LV lead attime of ICD insertion (cpt 66220) I have read, edited and approve of this report: Lalit Mcmahon MD [facility] Cardiac Electrophysiology 07/23/2022 4:22 PM Lalit Mcmahon MD EP PROCEDURE ORDERAB LES * POCT Glucose (07/23/2022 12:54 PM EDT) Glucose, POC 83 65 - 199 mg/dL [facility] Comment: Supplemental ranges: <140 mg/dL before meals <180 mg/dL all other times of the day Blood 07/23/2022 12:5 4 PM EDT 07/23/2022 12:54 PM EDT Lalit Mcmahon MD POINT OF CARE TEST O RDERABLES Performing Organization Address [facility] [[email or web address]] Co de Phone Number [facility] [place] [address] * EKG 12 Lead (07/23/2022 12:33 PM EDT) Ventricular rate 72 BPM MUSE SYSTEM Atrial Rate 72 BPM MUSE SYSTEM P-R Interval 158 ms MUSE SYSTEM QRS Duration 176 ms MUSE SYSTEM Q-T Interval 458 ms MUSE SYSTEM QTC Calculated (Bezet) 501 ms MUSE SYSTEM Calculated P [place] 34 degrees MUSE SYSTEM Calculated R [place] 12 degrees MUSE SYSTEM Calculated T [place] -173 degrees MUSE SYSTEM INTERPRETATION Normal sinus rhythm Left bundle branch block Abnormal ECG No previous ECGs available Confirmed by MD Salome, Lalit ([id number]) on 07/23/2022 1:19:03 PM MUSE SYSTEM 07/23/2022 12:3 3 PM EDT 07/23/2022 1:19 PM EDT Lalit Mcmahon MD ECG ORDERABLES Performing Organization Address [facility] de Phone Number MUSE SYSTEM * Differential, Automated (07/23/2022 11:55 AM EDT) Neutrophil % 62.6 % [facility] Neutrophil Absolute 4.14 1.70 - 6.10 x10(3)/[facility] Lymph % 27.0 % [facility] Lymphocytes Abs 1.8 0.9 - 3.2 x10(3)/[facility] Monocyte % 7.3 % [facility] Monocyte Abs 0.5 0.3 - 0.9 x10(3)/[facility] Eos % 2.3 % [facility] Eosinophils Abs 0.2 0.0 - 0.4 x10(3)/[facility] Basophil % 0.6 % [facility] Baso Absolute 0.0 0.0 - 0.1 x10(3)/[facility] Immature Gran % 0.20 % [facility] Comment: Immature granulocytes(IG's)percentage and absolute count will include metamyelocytes, myelocytes, and promyelocytes. Blood smears from CBCs yielding IG's will be scanned manually for concordance. If this scan disagrees with the automated IG or if promyelocytes are noted, a manual differential will be performed. Immature Gran Absolute 0.01 0.00 - 0.04 x10(3)/[facility] Blood 07/23/2022 11:5 5 AM EDT 07/23/2022 12:07 PM EDT Narrative Resulting Agency Comment Spec In Lab Lalit Mcmahon MD HEMATOLOGY ORDERABLE S [facility] [place] [address] * Hemogram (07/23/2022 11:55 AM EDT) White Blood Cell 6.6 4.0 - 9.5 x10(3)/[facility] Red Blood Cell 4.50 4.00 - 5.21 x10(6)/[facility] Hemoglobin 13.7 11.7 - 15.5 g/dL [facility] Hematocrit 42.5 35.7 - 45.8 % [facility] Mean Cell Volume 94.4 82.6 - 94.4 fL [facility] Mean Cell Hemoglobin 30.4 27.1 - 32.0 pg [facility] Mean Cell Hemoglobin Concentration 32.2 31.7 - 35.0 g/dL [facility] Platelet 193 145 - 357 x10(3)/[facility] RDW Standard Deviation 45.5 37.0 - 46.0 fL [facility] RDW coefficient of variation 13.2 11.5 - 14.1 % [facility] Mean Platelet Volume 9.5 7.6 - 12.9 fL [facility] NRBC% auto 0.0 % [facility] NRBC Absolute 0.000 0.000 - 0.000 x10(3)/mcL [facility] Blood 07/23/2022 11:5 5 AM EDT 07/23/2022 12:07 PM EDT Narrative Resulting Agency Comment Spec In Lab Lalit Mcmahon MD HEMATOLOGY ORDERABLE S [facility] [address] [place] [address] * (ABNORMAL) BMP w/fasting Glucose (07/23/2022 11:55 AM EDT) Glucose Fasting 110(H) 65 - 99 mg/dL [facility] Comment: ?Fasting* Glucose Interpretive Criteria Normal [...] of Diabetes Mellitus, Position Statement from the [place] [employer]. ??Diabetes Care, Volume 33, Supplement 1, Mar 2009 Blood Urea Nitrogen 23(H) 8 - 18 mg/dL [facility] Creatinine 1.07 0.70 - 1.20 mg/dL [facility] Sodium 141 135 - 145 mmol/L [facility] Potassium 4.8 3.5 - 5.0 mmol/L [facility] Comment: Please note: ??Patients with WBC >100,000 may have falsely elevated Potassium levels. ??For accurate Potassium quantification in these patients send serum separator tube (gold top) for subsequent determinations. ??Contact the Clinical Chemistry Laboratory if there are any questions. Chloride 106 98 - 107 mmol/L [facility] Carbon Dioxide 26 22 - 31 mmol/L [facility] Anion Gap 9 5 - 15 mmol/L [facility] Calcium 9.7 8.5 - 10.5 mg/dL [facility] Est Glomerular Filtration Rate 55(L) >=60 mL/min/1. 73 m?? [facility] Comment: This patient's estimated GFR was [...] Mcmahon MD CHEMISTRY ORDERABLES Performing Organization Address [facility] [[email or web address]] Co de Phone Number [facility] [place] [address] * Prothrombin Time (07/23/2022 11:55 AM EDT) Prothrombin Time 11.7 9.4 - 12.5 sec [facility] International Normalization Ratio 1.0 [facility] Comment: An INR <2.0 indicates adequate [...] MD HEMATOLOGY ORDERABLE S Performing Organization Address City/[facility] [[email or web address]] Co de Phone Number [facility] [place] [address] documented in this encounter Visit Diagnoses Diagnosis HFrEF (heart failure with reduced ejection fraction)- Primary Left bundle branch block Other left bundle branch block Nonischemic cardiomyopathy Other primary cardiomyopathies Cardiac resynchronization therapy defibrillator (DRAMATIC COACH-D) in place Left bundle branch block Other [...] Routine documented in this encounter Care Teams Cotton Inspector Relationship Specialty Start Date End Date Lolly Oliveira MD [address] [place] [address] PCP - General 07/17/13 documented as of this encounter
--- OUTSIDE RECORDS SUMMARY | 2023-11-05 11:54 | XMS_ITS | Encounter Summary ---
Author Organization [facility] [address] Care Team Providers Care Clinical Lab Assistant Name Role Phone Lolly Oliveira MD Primary Care Provider Encounter Details Date Type Department Care Team (Latest Contact Info) Description 04/21/2023 10:00 AM EST - 04/21/2023 11:59 PM EST Hospital Encounter [place] [phone] Discharge Disposition: Home Social History Tobacco Use [...] with spacer fluticasone propionate (Flonase) 50 mcg/actuation Jean, Suspension 1 spray by Each Nare route [...] AM EST Hospital Encounter [place] [address] Arrived documented as of this [...] filedocumented in this encounter Care Teams Clinical Lab Assistant Relationship Specialty Start Date End Date Lolly Oliveira MD [address] [place] [address] PCP - General 07/17/13 documented as of this encounter
--- OUTSIDE RECORDS SUMMARY | 2023-11-05 11:54 | XMS_ITS | Encounter Summary ---
Author Organization [place] [address] Care Team Providers Care Ballet Master/Mistress Name Role Phone Lolly Oliveira MD Primary Care Provider [phone] Encounter Details Date Type Department Care Team (Latest Contact Info) Description 10/23/2022 10:00 AM EDT - 10/23/2022 11:59 PM EDT Hospital Encounter Non-[place] [address] Discharge Disposition: Home Social History Tobacco Use [...] with spacer fluticasone propionate (Flonase) 50 mcg/actuation [place], Suspension 1 spray by Each Nare route [...] Contact Info) Description 01/16/2024 10:00 AM [facility] Hospital Encounter Non-[place] [address] Arrived documented as of this [...] on filedocumented in this encounter Care Teams Ballet Master/Mistress Relationship Specialty Start Date End Date Lolly Oliveira MD [address] [place] [address] PCP - General 07/17/13 documented as of this encounter
--- OUTSIDE RECORDS SUMMARY | 2023-11-05 11:54 | XMS_ITS | Encounter Summary ---
Author Organization [facility] [place] [address] Care Team Providers Care Hardware Press Operator Name Role Phone Lolly Oliveira MD Primary Care Provider [phone] Encounter Details Date Type Department Care Team (Late st Contact Info) Description 03/15/2023 Telephone Cardiology at [address] [phone] Saranya Ma Social History Tobacco Use Types [...] her to have an echo done at [facility] prior to her appt withnmm there on 05/12/23. Message sent to Dr. Mcmahon asking him to put order in if he would like her to have this done. Saranya Ma Sr. Clinical Procedure [place]/Continuous Absorption Process Operator documented in this encounter Plan of Treatment Upcoming Encounters Date Type Department Care Team (Late st Contact Info) Description 01/16/2024 10:00 AM EST Hospital Encounter [place] [address] Arrived documented as of this encounter Visit Diagnoses Not on filedocumented in this encounter Care Teams Hardware Press Operator Relationship Specialty Start Date End Date Lolly Oliveira MD [address] [place] [address] PCP - General 07/17/13 documented as of this encounter
--- OUTSIDE RECORDS SUMMARY | 2023-11-05 11:54 | XMS_ITS | Encounter Summary ---
Author Organization [facility] Address [facility] [place] [address] Care Team Providers Care Studio Operation Engineer Name Role Phone Lolly Oliveira MD Primary Care Provider [phone] Reason for Referral * Diagnostic Test (Routine) - Closed Specialty Diagnoses / Procedures Referred By Contkoki t Referred To Contact Cardiology Diagnoses Nonischemic cardiomyopathy Biventricular ICD (implantable cardioverter-defibrillator) in place Procedures Echocardiogram Transthoracic Lalit Mcmahon MD [facility] [place] [address] Referral ID Status Reason Start Date Expiration Date V isits Requested Visits Authorized [id number] Closed Specialty Service Requested 03/15/2023 09/11/2023 1 1 Encounter Details Date Type Department Care Team (Late st Contact Info) Description 03/15/2023 Orders Only Cardiology at [address] [address] Lalit Mcmahon MD [facility] [place] [address] Nonischemic cardiomyopathy; Biventricular ICD (implantable cardioverter-defibrill ator) [...] AM EST Hospital Encounter [place] [address] Arrived Scheduled Orders Name Type Priority Associated Diagnoses Order Schedule Echocardiogram Transthoracic Echocardiography Routine Nonischemic cardiomyopathy Biventricular ICD (implantable cardioverter-defibr illator) in place Expected: 05/05/2023, Expires: 11/04/2023 documented as of this encounter Visit Diagnoses Diagnosis Nonischemic cardiomyopathy Other primary cardiomyopathies Biventricular ICD (implantable cardioverter-defibrillator) in place documented in this encounter Care Teams Studio Operation Engineer Relationship Specialty Start Date End Date Lolly Oliveira MD [address] [place] [address] PCP - General 07/17/13 documented as of this encounter
--- OUTSIDE RECORDS SUMMARY | 2023-11-05 11:54 | XMS_ITS | Encounter Summary ---
Author Organization [facility] [place] [address] Care Team Providers Care Hat Braider Name Role Phone Lolly Oliveira MD Primary Care Provider [phone] Encounter Details Date Type Department Care Team (Late st Contact Info) Description 11/16/2022 Telephone Cardiology at [address] [phone] Luna Rousseau, RN Social History Tobacco Use [...] today was 118/57 at [facility] at [facility]. Pt is going twice a week [...] [facility] Hospital Encounter [place] [phone] Arrived documented as of this encounter Visit Diagnoses Not on filedocumented in this encounter Care Teams Hat Braider Relationship Specialty Start Date End Date Lolly Oliveira MD [address] [place] [address] PCP - General 07/17/13 documented as of this encounter
--- OUTSIDE RECORDS SUMMARY | 2023-11-05 11:54 | XMS_ITS | Encounter Summary ---
Author Organization [facility] [place] [address] Care Team Providers Care Architecture Manager Name Role Phone Lolly Oliveira MD Primary Care Provider [phone] Encounter Details Date Type Department Care Team (Late st Contact Info) Description 05/18/2023 Telephone Dermatology at [address] [address] Nora Meredith LPN Social History [...] [place] [facility] Encounter Non-Invasive [place] [address] Arrived documented as of this encounter Visit Diagnoses Not on filedocumented in this encounter Care Teams Architecture Manager Relationship Specialty Start Date End Date Lolly Oliveira MD [address] [place] [address] PCP - General 07/17/13 documented as of this encounter
--- OUTSIDE RECORDS SUMMARY | 2023-11-05 11:54 | XMS_ITS | Encounter Summary ---
Author Organization [facility] [address] Care Team Providers Care Multiple Spindle Router Operator Name Role Phone Lolly Oliveira MD Primary Care Provider [phone] Reason for Visit * Reason Onset Date Comments Other 07/24/2022 Implanted Cardia c Device Teaching/Education Encounter Details Date Type Department Care Team (Late st Contact Info) Description 07/24/2022 Notes Only Cardiology at [address] [id number] Letha Arroyo Other (Implanted Cardiac Device Teaching/Education) [...] to call the Cardiac Device [facility] at [phone] with any questions. Plan: Post op check: [...] [facility] Encounter [place] [address] Arrived documented as of this encounter Visit Diagnoses Not on filedocumented in this encounter Care Teams Multiple Spindle Router Operator Relationship Specialty Start Date End Date Lolly Oliveira MD [address] [place] [address] PCP - General 07/17/13 documented as of this encounter
--- OUTSIDE RECORDS SUMMARY | 2023-11-05 11:54 | XMS_ITS | Encounter Summary ---
Author Organization [facility] [place] [address] Care Team Providers Care Superior Court Judge Name Role Phone Lolly Oliveira MD Primary Care Provider [phone] Encounter Details Date Type Department Care Team (Late st Contact Info) Description 05/18/2023 Refill Dermatology at [address] [address] Nora Meredith LPN Social History [...] patient. She voiced understanding. Order sent to [facility] drug. documented in this encounter Plan of Treatment Upcoming Encounters Date Type Department Care Team (Late st Contact Info) Description 01/16/2024 10:00 AM EST Hospital Encounter Non-Invasive [place] [address] Arrived documented as of this encounter Visit Diagnoses Not on filedocumented in this encounter Care Teams Superior Court Judge Relationship Specialty Start Date End Date Lolly Oliveira MD [address] [place] [address] PCP - General 07/17/13 documented as of this encounter
--- OUTSIDE RECORDS SUMMARY | 2023-11-05 11:54 | XMS_ITS | Encounter Summary ---
Author Organization [facility] [place] [address] Care Team Providers Care Solder Making Supervisor Name Role Phone Lolly Oliveira MD Primary Care Provider [phone] Encounter Details Date Type Department Care Team (Late st Contact Info) Description 03/17/2023 Telephone Cardiology at [address] [phone] Saranya Ma Social History Tobacco Use Types Packs/Day Years Used Date Smoking Tobacco: Never Alcohol Use Standard Drinks/Week Comments Not Currently 0 (1 standard drink = 0.6 oz pur e alcohol) [facility] Inpatient Questions Answer Date Recorded Does Anyone [...] 9:43 AM EST Echo order faxed to [facility] at [phone]. No Prior auth needed. Ref #:[id number]. Saranya Ma Sr. Clinical Procedure [place]/Mat Roller documented in this encounter Plan of Treatment Upcoming Encounters Date Type Department Care Team (Late st Contact Info) Description 01/16/2024 10:00 AM [facility] Hospital Encounter Non-Invasive [place] [address] Arrived documented as of this encounter Visit Diagnoses Not on filedocumented in this encounter Care Teams Solder Making Supervisor Relationship Specialty Start Date End Date Lolly Oliveira MD [address] [place] [address] PCP - General 07/17/13 documented as of this encounter
--- OUTSIDE RECORDS SUMMARY | 2023-11-05 11:54 | XMS_ITS | Encounter Summary ---
Author Organization [facility] Address [facility] [place] [address] Care Team Providers Care Production Broaching Machine Operator Name Role Phone Lolly Oliveira MD Primary Care Provider [phone] Encounter Details Date Type Department Care Team (Late st Contact Info) Description 11/11/2022 Orders Only Cardiology at [address] [phone] Lalit Mcmahon MD [facility] [place] [address] Nonischemic cardiomyopathy Social History Tobacco Use Types [...] [facility] Non-Invasive [place] [phone] Arrived documented as of this encounter Visit Diagnoses Diagnosis Nonischemic cardiomyopathy Other primary cardiomyopathies documented in this encounter Care Teams Production Broaching Machine Operator Relationship Specialty Start Date End Date Berrian, Lolly M, MD [address] [place] [address] PCP - General 07/17/13 documented as of this encounter
--- OUTSIDE RECORDS SUMMARY | 2023-11-05 11:55 | XMS_ITS | Encounter Summary ---
Author Organization [facility] [place] [address] Care Team Providers Care Photography Colorist Name Role Phone Unavailable Primary Care Provider Unavailabl e Encounter Details Date Type Department Care Team (Late st Contact Info) Description 07/04/2012 [place] [phone] Eleno Christian MD [facility] [place] [address] Social History Tobacco Use Types Packs/Day Years [...] AM EST Hospital Encounter Non-Invasive [place] [phone] Arrived documented as of this encounter Procedures [...] is a Non-reportable exam Eleno Christian MD [facility] FILM LIBRARY ORD ERABLES documented in this encounter Visit Diagnoses Not on filedocumented in this encounter
--- OUTSIDE RECORDS SUMMARY | 2023-11-05 11:55 | XMS_ITS | Encounter Summary ---
Author Organization [facility] [place] [address] Care Team Providers Care Pewter Finisher Name Role Phone Lolly Oliveira MD Primary Care Provider [phone] Reason for Visit * Diagnostic Test (Routine) - Closed Specialty Diagnoses / Procedures Referred By Contac t Referred To Contact Radiology Diagnoses Left bundle branch block Nonischemic cardiomyopathy Procedures MRI Cardiac Morphology Function With Flow Velocity Quantification wwo Contrast MRI Cardiac Morphology Function wwo Contrast Lalit Mcmahon MD [facility] [address] [facility] [place] [address] Referral ID Status Reason Start Date Expiration Date V isits Requested Visits Authorized [id number] Closed Specialty Service Requested 05/06/2022 11/07/2023 2 1 Encounter Details Date Type Department Care Team (Latest Contact Info) Description 07/14/2022 9:09 AM EDT - 07/14/2022 11:59 PM EDT Hospital [place] [address] Lalit Mcmahon MD [facility] [place] [address] Discharge Disposition: Home Social History Tobacco Use [...] with spacer fluticasone propionate (Flonase) 50 mcg/actuation [place], Suspension 1 spray by Each Nare route [...] AM EST Hospital Encounter Non-Invasive [place] [address] Arrived documented as of this [...] mLs documented in this encounter Care Teams Pewter Finisher Relationship Specialty Start Date End Date Lolly Oliveira MD [address] [place] [address] PCP - General 07/17/13 documented as of this encounter
--- OUTSIDE RECORDS SUMMARY | 2023-11-05 11:55 | XMS_ITS | Encounter Summary ---
Author Organization [facility] [place] [address] Care Team Providers Care Marble Worker Name Role Phone Lolly Oliveira MD Primary Care Provider [phone] Reason for Visit * Reason Comments Follow-up Encounter Details Date Type Department Care Team (Late st Contact Info) Description 06/06/2021 8:45 AM EDT Office Visit Dermatology at [address] [address] Clay Ramírez MD [address] [facility] [place] [address] Psoriasis, guttate Social History Tobacco Use Types [...] [facility] Hospital Encounter [place] [phone] Arrived documented as of this encounter Visit Diagnoses Diagnosis Psoriasis, guttate Other psoriasis documented in this encounter Care Teams Marble Worker Relationship Specialty Start Date End Date Lolly Oliveira MD [address] [place] [address] PCP - General 07/17/13 documented as of this encounter
--- OUTSIDE RECORDS SUMMARY | 2023-11-05 11:55 | XMS_ITS | Encounter Summary ---
Author Organization [facility] [place] [address] Care Team Providers Care Parts Data Writer Name Role Phone Lolly Oliveira MD Primary Care Provider [phone] Encounter Details Date Type Department Care Team (Latest Contact Info) Description 07/17/2013 8:40 AM EDT - 07/17/2013 11:59 PM EDT Hospital Encounter XRay at [address] [place] [phone] CL[address], [facility] Discharge Disposition: Home Social [...] AM EST Hospital Encounter Non-Invasive [place] [phone] Arrived documented as of this encounter Visit Diagnoses Not on filedocumented in this encounter Care Teams Parts Data Writer Relationship Specialty Start Date End Date Lolly Oliveira MD [address] [place] [address] PCP - General 07/17/13 documented as of this encounter
--- OUTSIDE RECORDS SUMMARY | 2023-11-05 11:55 | XMS_ITS | Encounter Summary ---
Author Organization [facility] [place] [address] Care Team Providers Care Supervisor Electronic Coils Name Role Phone Lolly Oliveira MD Primary Care Provider [phone] Encounter Details Date Type Department Care Team (Late Contact Info) Description 01/14/2022 Telephone Dermatology at [address] [address] Nora Meredith LPN Social History [...] return to phototherapy. New order sent to [facility]. Reviewed with patient Dr. Mar recommendation. She agrees with plan of care. Advised patient order will be sent to [facility]. She voiced understanding. documented in this encounter Plan of Treatment Upcoming Encounters Date Type Department Care Team (Late Contact Info) Description 01/16/2024 10:00 AM EST Hospital Encounter Non-[place] [address] Arrived documented as of this encounter Visit Diagnoses Not on filedocumented in this encounter Care Teams Supervisor Electronic Coils Relationship Specialty Start Date End Date Lolly Oliveira MD [address] [place] [address] PCP - General 07/17/13 documented as of this encounter
--- OUTSIDE RECORDS SUMMARY | 2023-11-05 11:55 | XMS_ITS | Encounter Summary ---
Author Organization [facility] [place] [address] Care Team Providers Care Clip Baker Name Role Phone Lolly Oliveira MD Primary Care Provider [phone] Encounter Details Date Type Department Care Team (Latest Contact Info) Description 07/26/2013 9:45 AM EDT - 07/26/2013 11:59 PM EDT Hospital [place] [address] Mammographic microcalcification Social History Tobacco Use Types [...] AM EST Hospital Encounter Non-[place] [address] Arrived documented as of this encounter Procedures [...] microcalcification documented in this encounter Care Teams Clip Baker Relationship Specialty Start Date End Date Lolly Oliveira MD [address] [place] [address] PCP - General 07/17/13 documented as of this encounter
--- OUTSIDE RECORDS SUMMARY | 2023-11-05 11:55 | XMS_ITS | Encounter Summary ---
Author Organization [facility] [place] [address] Care Team Providers Care Information Technology Consultant Name Role Phone Lolly Oliveira MD Primary Care Provider [phone] Reason for Visit * Reason Comments Psoriasis Encounter Details Date Type Department Care Team (Late st Contact Info) Description 04/09/2022 1:45 PM EST Office Visit Dermatology at [address] [address] Clay Ramírez MD [address] [facility] [place] [address] Psoriasis, guttate Social History Tobacco Use Types [...] AM EST Hospital Encounter Non-Invasive [place] [address] Arrived documented as of this encounter Visit Diagnoses Diagnosis Psoriasis, guttate Other psoriasis documented in this encounter Care Teams Information Technology Consultant Relationship Specialty Start Date End Date Lolly Oliveira MD [address] [place] [address] PCP - General 07/17/13 documented as of this encounter
--- OUTSIDE RECORDS SUMMARY | 2023-11-05 11:55 | XMS_ITS | Encounter Summary ---
[place] [address] Care Team Providers Care Strapper Operator Name Role Phone Lolly Oliveira MD Primary Care Provider [phone] Encounter Details Date Type Department Care Team [...] AM EST Hospital Encounter Non-[place] [address] Arrived documented as of this encounter Visit Diagnoses Not on filedocumented in this encounter Care Teams Strapper Operator Relationship Specialty Start Date End Date Lolly Oliveira MD [address] [place] [address] PCP - General 07/17/13 documented as of this encounter
--- OUTSIDE RECORDS SUMMARY | 2023-11-05 11:55 | XMS_ITS | Encounter Summary ---
[place] [address] Care Team Providers Care Machine Joint Cutter Name Role Phone Lolly Oliveira MD Primary Care Provider [phone] Encounter Details Date Type Department Care Team (Late st Contact Info) Description 04/09/2022 Refill Dermatology at [address] [address] Nora Meredith, METAL TANK BUILDER Social History Tobacco Use Types Packs/Day Years Used Date Smoking Tobacco: Never Sex and Gender Information Value Date Recorded Sex Assigned at Not on file Gender Identity Not on file Sexual Orientation Not on file documented as of this encounter Plan of Treatment Upcoming Encounters Date Type Department Care Team (Late st Contact Info) Description 01/16/2024 10:00 AM [facility] Hospital Encounter Non[place] [address] Arrived documented as of this encounter Visit Diagnoses Not on filedocumented in this encounter Care Teams Machine Joint Cutter Relationship Specialty Start Date End Date Lolly Oliveira MD [address] [place] [address] PCP - General 07/17/13 documented as of this encounter
--- OUTSIDE RECORDS SUMMARY | 2023-11-05 11:55 | XMS_ITS | Encounter Summary ---
Author Organization Formerly [facility] [place] [address] Care Team Providers Care Regeneration Operator Name Role Phone Lolly Oliveira MD Primary Care Provider [phone] Reason for Visit * Auth/Cert (Routine) Specialty Diagnoses / Procedures Referred By Contac t Referred To Contact Diagnoses Left bundle-branch block, unspecified Other cardiomyopathies Left bundle branch block [I44.7]Nonischemic cardiomyopathy [I42.8] Procedures PRG CATH PLMT LEFT HEART CATH & ARTS W/INJ & ANGIO IMG S&I ELECTROPHYSIOLOGY PROCEDURE Lalit Mcmahon MD [facility] [place] [address] [facility] Referral ID Status Reason Start Date Expiration Date Visits Re quested Visits Authorized [id number] 1 1 Encounter Details Date Type Department Care Team (Late st Contact Info) Description 07/23/2022 1:00 PM EDT - 07/23/2022 5:30 PM EDT Surgery [place] [address] Lalit Mcmahon MD [facility] [place] [address] ELECTROPHYSIOLOGY PROCEDURE Social History Tobacco Use Types Packs/Day Years Used Date Smoking Tobacco: Never Tobacco Cessation:Counseling Given: Not Answered Alcohol Use Standard Drinks/Week Comments Not Currently 0 (1 standard drink = 0.6 oz pur e alcohol) [facility] Inpatient Questions Answer Date Recorded Does [...] Luna Mott Patient Age: 71 y.o. Language: Romanian Race: White Ethnicity: Not nor Admit date: 07/23/2022 Discharge date and time: 07/24/22 Attending Physician: Lalit Mcmahon MD Discharge Physician: Lalit Mcmahon MD Follow-up Recommendations for Providers: - s/p EMBROIDERY ASSISTANT-D implant - post implant QRS 130 ms - reviewed post-implant instructions - no medication changes - Follow up in device clinic for wound/device check in ~10 days ([facility]) Inpatient Provider Contact Information: Cardiac Electrophysiology - Discharge Diagnoses (Hospital Problems) and Secondary Diagnoses (Chronic Problems): Active Hospital Problems Diagnosis ??? HFrEF (heart failure with reduced ejection fraction) Resolved Hospital Problems No resolved problems to display. Active Non-Hospital Problems Diagnosis ??? Dermatofibroma ??? Nevus ??? Solar lentigo Operations/Major Procedures: 07/23/22: [facility] EMBROIDERY ASSISTANT-D implant History of Presentation: 71 y.o. female with a history of HFrEF, LBBB, QRS >150, NYHA II who is POD#1 of EMBROIDERY ASSISTANT-D implant ([employer]). Hospital Course: Elective admission for EMBROIDERY ASSISTANT-D implant Admitted post-implant for pain management, telemetry [...] (heart failure with reduced ejection fraction) [I50.20] EMBROIDERY ASSISTANT-D implant Admission Condition: good Indication for Admission: [...] g Refills: 3 fluticasone propionate 50 mcg/actuation [place], Suspension Commonly known as: Flonase 1 spray [...] incision. Make sure to use a cloth handler (such as a towel) in between the [...] F. The office scheduling phone number is [phone]. ARM MOVEMENT RESTRICTIONS POST-IMPLANT - Do not [...] please call the Cardiac ElectrophysiologyTriage Nurse at [phone], option 3. General Instructions None Discharge References/Attachments [...] incision. Make sure to use a cloth handler (such as a towel) in between the [...] F. The office scheduling phone number is [phone]. ARM MOVEMENT RESTRICTIONS POST-IMPLANT - Do not [...] please call the Cardiac ElectrophysiologyTriage Nurse at [phone], option 3. documented in this encounter Medications [...] spacer fluticasone propionate (Flonase) 50 mcg/actuation [place], Suspension 1 spray by Each Nare route [...] Cardiac Electrophysiology Post-Implant Device Interrogation Luna Mott [id number] 07/24/2022 History: Luna Mott is a 71 y.o. female with a history of HFrEF, LBBB, QRS >150, NYHA II who is POD#1 of EMBROIDERY ASSISTANT-D implant ([employer]). Overall feels well this morning. Ready [...] WOB Neuro- A&Ox3 Device Interrogation: Data ?? Mortician Helper Model # Serial # Generator [employer] [id number] Atrial Lead [employer] [id number] RV Lead [employer] 0672 [id number] LV Lead [employer] [id number] ?? Diagnostics Pacing Mode: DDD 60-130 Underlying Rhythm: [place] Atrial Episodes: None Ventricular Episodes: None FINAL PROGRAMMING: Pacing: Mode Lower rate (ppm) Upper rate (ppm) ?? DDD 60 130 VF: Rate (bpm) #Antitachycardia pacing First shock energy (J) ?? 200 Quick convert 41 VT: 170 Monitor only Monitor only ? Battery and Leads Impedances (ohms) Sensing (mV) Thresholds HV RA RV LV RA RV LV RA RV LV 73 [phone] (LVa) 7.7 13.1 >25 0.4V @ 0.4 ms 0.4V @ 0.4 ms 0.5 V @ 1.0 ms POD#1 CXR: All leads in nominal positioning Impression: 71 y.o. female who is s/p EMBROIDERY ASSISTANT-D implant for LBBB, NYHA II, HFrEF. - Appropriate device function post-implant - CXR negative for post-implant complications - Changed sensed AV delay from 130 to 110 Plan: 1. Reviewed standard post-implant discharge instructions (see patient instructions) including arm restrictions, wound care, bathing, and driving 2. No medication changes. 3. Follow up in device clinic for wound/device check in ~10 days ([facility]) Fadi Nunez MD 07/24/2022 Pager: [phone] I met with the patient today and [...] agreement. ? Dr. Lalit Mcmahon, electrophysiology attending ([id number]) * Zaria Wright RN - 07/23/2022 8:28 [...] HF, QRS > 150 ms presents for EMBROIDERY ASSISTANT-D placement. ROS: Denies recent fevers or chills [...] 0.9) flush 5 mL 5 mL Intravenous [id number] ramos MD ??? sodium chloride 0.9 % [...] HF, QRS > 150 ms presents for EMBROIDERY ASSISTANT-D placement. Backup would be LBBAP lead. Antibiotics: cefazolin Rationales for, intended benefits and potential risk of planned procedures reviewed. The patient indicated understanding and agreement with the plan. Informed consent signed. Procedure checklist completed. Fadi Nunez MD Cardiac Electrophysiology Fellow [facility] Pager [phone] 07/23/2022 I met with the patient today [...] agreement. ? Dr. Lalit Mcmahon, electrophysiology attending ([id number]) documented in this encounter Miscellaneous Notes * Brief Op Note - Lalit Mcmahon MD - 07/23/2022 4:04 PM EDT Brief Operative Note Patient Name: Luna Mott : [id number] MR#: [id number] Case Date: 07/23/2022 Surgeon: Surgeon(s) and Role: [...] AM EST Hospital Encounter Non[place] [address] Arrived Scheduled Orders Name Type Priority Associated Diagnoses Orde r Schedule EKG 12 Lead ECG Routine Cardiac resynchronization therapy defibrillator (EMBROIDERY ASSISTANT-D) in place One Time for 1 Occurrences [...] (Bezet) 522 ms MUSE SYSTEM Calculated R [place] 78 degrees MUSE SYSTEM Calculated T [place] -71 degrees MUSE SYSTEM INTERPRETATION AV dual-paced [...] have questions please contact the health career discovery teacher that requested your imaging first. ? Narrative [...] who have questions please contactthe health career discovery teacher that requested your imaging first. Lalit Mcmahon MD IMG DX ORDERABLES * ELECTROPHYSIOLOGY PROCEDURE (07/23/2022 1:11 PM EDT) Anatomical Region Laterality Modality Other Narrative 07/23/2022 4:24 PM EDT Table formatting from the original result was not included. BIVENTRICULAR ICD IMPLANTATION Surface Miner: Lalit Mcmahon MD Fellow: Fadi Nunez MD [...] lateral branch of the CS in the NAMIBIAN view. This branch was cannulated with a [...] the entire procedure. LEAD AND GENERATOR DATA: Mortician Helper Model # Serial # Generator [employer] [id number] Atrial Lead [employer] [id number] RV Lead [employer] [id number] [id number] LV Lead [employer] [id number] PACE/SENSE DATA: Sensed wave (mV) Threshold (V) [...] (cGycm2) 300 CONCLUSIONS: Successful implantation of a [employer] biventricular ICD for primary prevention and treatment of symptoms related to congestive heart failure. Follow up in EP clinic in 1-2 months. Procedures performed: new ICD system ( cpt 29040-X1); implant LV lead at time of ICD insertion (cpt 15328) I have read, edited and approve of this report: Lalit Mcmahon MD [facility] Cardiac Electrophysiology 07/23/2022 4:22 PM Procedure Note Lalit Mcmahon MD - 07/23/2022 BIVENTRICULAR ICD IMPLANTATION Surface Miner: Lalit Mcmahon MD Fellow: Fadi Nunez MD [...] appropriate lateralbranch of the CS in the NAMIBIAN view. This branch was cannulated with a [...] in the entireprocedure. LEAD AND GENERATOR DATA: Mortician Helper Model # Serial # Generator [employer] [id number] Atrial Lead [employer] [id number] [id number] RV Lead [employer] 0672 [id number] LV Lead [employer] [id number] [id number] PACE/SENSE DATA: Sensed wave (mV) Threshold (V) [...] (cGycm2) 300 CONCLUSIONS: Successful implantation of a [employer] biventricular ICD forprimary prevention and treatment of symptoms related to congestive heartfailure. Follow up in EP clinic in 1-2 months. Procedures performed: new ICD system ( cpt 66395-K4); implant LV lead attime of ICD insertion (cpt 81687) I have read, edited and approve of this report: Lalit Mcmahon MD S Cardiac Electrophysiology 07/23/2022 4:22 PM Lalit Mcmahon MD EP PROCEDURE ORDERAB LES * POCT Glucose (07/23/2022 12:54 PM EDT) [facility] Signature Glucose, POC 83 65 - 199 mg/dL [facility] Comment: Supplemental ranges: <140 mg/dL before meals <180 mg/dL all other times of the day Blood 07/23/2022 12:5 4 PM EDT 07/23/2022 12:54 PM EDT Lalit Mcmahon MD POINT OF CARE TEST O RDERABLES Performing Organization Address City/[facility]/ZIP Co de Phone Number [facility] [place] [address] * EKG 12 Lead (07/23/2022 12:33 PM EDT) Ventricular rate 72 BPM MUSE SYSTEM Atrial Rate 72 BPM MUSE SYSTEM P-R Interval 158 ms MUSE SYSTEM QRS Duration 176 ms MUSE SYSTEM Q-T Interval 458 ms MUSE SYSTEM QTC Calculated (Bezet) 501 ms MUSE SYSTEM Calculated P [place] 34 degrees MUSE SYSTEM Calculated R [place] 12 degrees MUSE SYSTEM Calculated T [place] -173 degrees MUSE SYSTEM INTERPRETATION Normal sinus rhythm Left bundle branch block Abnormal ECG No previous ECGs available Confirmed by MD Salome, Lalit ([id number]) on 07/23/2022 1:19:03 PM MUSE SYSTEM 07/23/2022 12:3 3 PM EDT 07/23/2022 1:19 PM EDT Lalit Mcmahon MD ECG ORDERABLES Performing Organization Address [facility]/ZIP Co de Phone Number MUSE SYSTEM * Differential, Automated (07/23/2022 11:55 AM EDT) Neutrophil % 62.6 % [facility] Neutrophil Absolute 4.14 1.70 - 6.10 x10(3)/[facility] LAB[facility] Lymph % 27.0 % [facility] Lymphocytes Abs 1.8 0.9 - 3.2 x10(3)/[facility] LABOR[facility]ORY Monocyte % 7.3 % [facility] Monocyte Abs 0.5 0.3 - 0.9 x10(3)/[facility] LABORATORY Eos % 2.3 % [facility] Eosinophils Abs 0.2 0.0 - 0.4 x10(3)/[facility] LABORATORY Basophil % 0.6 % [facility] IT[facility] LABORAT[facility] Baso Absolute 0.0 0.0 - 0.1 x10(3)/[facility] LABORATORY Immature Gran % 0.20 % [facility] Comment: Immature granulocytes(IG's)percentage and absolute count will include metamyelocytes, myelocytes, and promyelocytes. Blood smears from CBCs yielding IG's will be scanned manually for concordance. If this scan disagrees with the automated IG or if promyelocytes are noted, a manual differential will be performed. Immature Gran Absolute 0.01 0.00 - 0.04 x10(3)/[facility] LAB[facility]ORY Blood 07/23/2022 11:5 5 AM EDT 07/23/2022 12:07 PM EDT Narrative Resulting Agency Comment Spec In Lab Lalit Mcmahon MD HEMATOLOGY ORDERABLE S [facility] [place] [address] * Hemogram (07/23/2022 11:55 AM EDT) White Blood Cell 6.6 4.0 - 9.5 x10(3)/[facility] LABORATORY Red Blood Cell 4.50 4.00 - 5.21 x10(6)/[facility] Hemoglobin 13.7 11.7 - 15.5 g/dL [facility] Hematocrit 42.5 35.7 - 45.8 % [facility] Mean Cell Volume 94.4 82.6 - 94.4 fL [facility] Mean Cell Hemoglobin 30.4 27.1 - 32.0 pg [facility] Mean Cell Hemoglobin Concentration 32.2 31.7 - 35.0 g/dL [facility] Platelet 193 145 - 357 x10(3)/[facility] LABORATORY RDW Standard Deviation 45.5 37.0 - 46.0 fL [facility] RDW coefficient of variation 13.2 11.5 - 14.1 % [facility] Mean Platelet Volume 9.5 7.6 - 12.9 fL [facility] NRBC% auto 0.0 % [facility] ITAL LAB[facility] NRBC Absolute 0.000 0.000 - 0.000 x10(3)/[facility] Blood 07/23/2022 11:5 5 AM EDT 07/23/2022 12:07 PM EDT Narrative Resulting Agency Comment Spec In Lab Lalit Mcmahon MD HEMATOLOGY ORDERABLE S [facility] [place] [address] * (ABNORMAL) BMP w/fasting Glucose (07/23/2022 11:55 AM EDT) Glucose Fasting 110(H) 65 - 99 mg/dL [facility] Comment: ?Fasting* Glucose Interpretive [...] of Diabetes Mellitus, Position Statement from the [place] [employer]. ??Diabetes Care, Volume 33, Supplement 1, Mar 2009 Blood Urea Nitrogen 23(H) 8 - 18 mg/dL [facility] Creatinine 1.07 0.70 - 1.20 mg/dL [facility] Sodium 141 135 - 145 mmol/L [facility] Potassium 4.8 3.5 - 5.0 mmol/L [facility] Comment: Please note: ??Patients [...] Anion Gap 9 5 - 15 mmol/L [facility] Calcium 9.7 8.5 - 10.5 mg/dL [facility] Est Glomerular Filtration Rate [...] CHEMISTRY ORDERABLES Performing Organization Address [facility] Co de Phone Number [facility] [place] [address] * Prothrombin Time (07/23/2022 11:55 AM EDT) Prothrombin Time 11.7 9.4 - 12.5 sec [facility] International Normalization Ratio 1.0 [facility] Comment: An INR <2.0 [...] MD HEMATOLOGY ORDERABLE S Performing Organization Address City/[facility] Co de Phone Number [facility] [place] [address] documented in this encounter Visit Diagnoses Diagnosis HFrEF (heart failure with reduced ejection fraction)- Primary Left bundle branch block Other left bundle branch block Nonischemic cardiomyopathy Other primary cardiomyopathies Cardiac resynchronization therapy defibrillator (EMBROIDERY ASSISTANT-D) in place Left bundle branch block Other [...] Routine documented in this encounter Care Teams Regeneration Operator Relationship Specialty Start Date End Date Lolly Oliveira MD [address] [place] [address] PCP - General 07/17/13 documented as of this encounter
--- OUTSIDE RECORDS SUMMARY | 2023-11-05 11:55 | XMS_ITS | Encounter Summary ---
Author Organization [facility] [place] [address] Care Team Providers Care Oracle Data Warehouse Developer Name Role Phone Lolly Oliveira MD Primary Care Provider [phone] Encounter Details Date Type Department Care Team (Late st Contact Info) Description 10/09/2021 Telephone Dermatology at [address] [address] Nora Meerdith LPN Social History Tobacco Use Types Packs/Day [...] [facility] Hospital Encounter [place] [address] Arrived documented as of this encounter Visit Diagnoses Not on filedocumented in this encounter Care Teams Oracle Data Warehouse Developer Relationship Specialty Start Date End Date Lolly Oliveira MD [address] [place] [address] PCP - General 07/17/13 documented as of this encounter
--- OUTSIDE RECORDS SUMMARY | 2023-11-05 11:55 | XMS_ITS | Encounter Summary ---
Author Organization [facility] Address [facility] [place] [address] Care Team Providers Care Seed Mill Superintendent Name Role Phone Lolly Oliveira MD Primary Care Provider [phone] Encounter Details Date Type Department Care Team (Late st Contact Info) Description 07/16/2022 Telephone Cardiology at [address] [phone] Lalit Mcmahon MD [facility] [place] [address] Social History Tobacco Use Types Packs/Day Years [...] her nonischemic cardiomyopathy. She is scheduled for SALT REFINER-D implantation next week and looks forward to the procedure. We will see each other next week. Lalit Mcmahon MD [facility] Cardiac Electrophysiology 07/16/2022 8:52 AM documented in this encounter Plan of Treatment Upcoming Encounters Date Type Department Care Team (Late st Contact Info) Description 01/16/2024 10:00 AM EST Hospital Encounter Non-[place] [address] Arrived documented as of this encounter Visit Diagnoses Not on filedocumented in this encounter Care Teams Seed Mill Superintendent Relationship Specialty Start Date End Date Lolly Oliveira MD [address] [place] [address] PCP - General 07/17/13 documented as of this encounter
--- OUTSIDE RECORDS SUMMARY | 2023-11-05 11:55 | XMS_ITS | Encounter Summary ---
Author Organization Formerly [facility] [place] [address] Care Team Providers Care Deputy County Clerk Name Role Phone Lolly Oliveira MD Primary Care Provider [phone] Reason for Visit * Reason Onset Date Comments Pre Procedure Call 07/01/2022 Encounter Details Date Type Department Care Team (Late st Contact Info) Description 07/01/2022 Telephone Cardiology at [address] [phone] Rosenda Sutton RN Pre Procedure Call Social History Tobacco Use Types Packs/Day Years Used Date Smoking Tobacco: Never Sex and Gender Information Value Date Recorded Sex Assigned at Not on file Gender Identity Not on file Sexual Orientation Not on file documented as of this encounter Miscellaneous Notes * Telephone Encounter - Rosenda Sutton RN - 07/01/2022 9:30 AM EDTSummary: Pre Procedure Call: LYE BOILER implant EP GEAR REPAIR SUPERVISOR COORDINATION CHECKLIST Patient Name: Luna Mott Patient Performing Paperhanger Supervisor: Lalit Mcmahon Referring Provider: Lolly Oliveira Date of Procedure: 07/23/22 Arrival Time/ Case Time: 12:00 pm / 1:00 pm Check In Location: Patient Safety Tech Desk 4W Date Patient was Called: 07/01/22 Procedure: LYE BOILER Company: [employer] Type: LYE BOILER-D Laterality: LEFT Orders: Yes Lab Orders: Yes [...] overnight , understands that they will need carrier driver on day of discharge Notified pt that Goff catheter may be placed on day of procedure depending on type & duration of case. documented in this encounter Plan of Treatment Upcoming Encounters Date Type Department Care Team (Late st Contact Info) Description 01/16/2024 10:00 AM [email or web address] Hospital Encounter Non-[place] [address] Arrived documented as of this encounter Visit Diagnoses Not on filedocumented in this encounter Care Teams Deputy County Clerk Relationship Specialty Start Date End Date Lolly Oliveira MD [address] [place] [address] PCP - General 07/17/13 documented as of this encounter
--- OUTSIDE RECORDS SUMMARY | 2023-11-05 11:55 | XMS_ITS | Encounter Summary ---
Author Organization Formerly [facility] [place] [address] Care Team Providers Care Divinity Professor Name Role Phone Lolly Oliveira MD Primary Care Provider [phone] Reason for Visit * Reason Comments Follow-up Encounter Details Date Type Department Care Team (Late st Contact Info) Description 05/21/2022 8:00 AM EDT Office Visit Dermatology at [address] [phone] Clay Ramírez MD [address] [facility] [place] [address] Psoriasis, guttate Social History Tobacco Use Types [...] [facility] Non-Invasive [place] [address] Arrived documented as of this encounter Visit Diagnoses Diagnosis Psoriasis, guttate Other psoriasis documented in this encounter Care Teams Divinity Professor Relationship Specialty Start Date End Date Lolly Oliveira MD [address] [place] [address] PCP - General 07/17/13 documented as of this encounter
--- OUTSIDE RECORDS SUMMARY | 2023-11-05 11:55 | XMS_ITS | Encounter Summary ---
Author Organization [facility] [place] [address] Care Team Providers Care Safety Patrol Officer Name Role Phone Lolly Oliveira MD Primary Care Provider [phone] Reason for Referral * Diagnostic Test (Routine) - Closed Specialty Diagnoses / Procedures Referred By Contac t Referred To Contact Radiology Diagnoses Left bundle branch block Nonischemic cardiomyopathy Procedures MRI Cardiac Morphology Function With Flow Velocity Quantification [facility] Contrast MRI Cardiac Morphology Function wwo Contrast Lalit Mcmahon MD [facility] [place] [address] [place] [address] Referral ID Status Reason Start Date Expiration Date V isits Requested Visits Authorized [id number] Closed Specialty Service Requested 05/06/2022 11/07/2023 2 1 Reason for Visit * Diagnostic Test (Routine) - Closed Specialty Diagnoses / Procedures Referred By Contac t Referred To Contact Radiology Diagnoses Left bundle branch block Nonischemic cardiomyopathy Procedures MRI Cardiac Morphology Function With Flow Velocity Quantification o Contrast MRI Cardiac Morphology Function wwo Contrast Lalit Mcmahon MD [facility] [place] [address] [place] [address] Referral ID Status Reason Start Date Expiration Date V isits Requested Visits Authorized [id number] Closed Specialty Service Requested 05/06/2022 11/07/2023 2 1 Encounter Details Date Type Department Care Team (Latest Contact Info) Description 07/14/2022 9:08 AM EDT Hospital Encounter MRI at [facility] [place] [phone] Lalit Mcmahon MD [facility] [address] [place] [address] Left bundle branch block; Nonischemic cardiomyopathy Discharge [...] with spacer fluticasone propionate (Flonase) 50 mcg/actuation [place], Suspension 1 spray by Each Nare route [...] 71 y.o. : 1950 [address] [facility] [address] Female [phone] (home) No relevant phone numbers on file. Lolly Oliveira MD None Allergies Allergen Reactions ??? Sulfa (Sulfonamide Antibiotics) Date/Time of call: July 07, 2022/11:03 AM/ PREVIOUS MRI SCAN? HEIGHT: WEIGHT: SCHEDULED SCAN: MRI CARDIAC MORPHOLOGY FUNCTION WITH FLOW VELOCITY QUANTIFICATION WWO CONTRAST [[id number]] Order Questions Answers Where will study be performed? [facility] Radiology [120] SUBJECTIVE: Very Claustrophobic CAN [...] ( KV ) You must have a automobile drivers present when you check in. This patient has been informed that they require a automobile drivers to drive them home after this procedure. In the absence of a automobile drivers, IR will not be able to sedate for your scan. Pt verbalized understanding of these instructions during the pre-procedure education via phone. Yes Name of automobile drivers: Daughter Phone number: PRIOR SCAN DATE/S SEDATION TYPE SUCCESSFUL 07/14/22 MRI Cardiac Morphology Function with Flow Velocity Quantification wwo Contrast Ativan 1mg x 1 dose Pass Revised 08/03/17 documented in this encounter Plan of Treatment Upcoming Encounters Date Type Department Care Team (Late st Contact Info) Description 01/16/2024 10:00 AM [facility] Hospital Encounter Non-Invasive [place] [address] Arrived documented as of this encounter Procedures [...] who have questions please contact the health family member caretaker that requested your imaging first. ? Electronically signed by: Greyson Herron MD, [facility] ([phone]), at 07/15/2022 9:53 AM Narrative 07/15/2022 9:53 [...] patients who have questions please contactthe health family member caretaker that requested your imaging first. Lalit [...] mg documented in this encounter Care Teams Safety Patrol Officer Relationship Specialty Start Date End Date Lolly Oliveira MD [address] [place] [address] PCP - General 07/17/13 documented as of this encounter
--- OUTSIDE RECORDS SUMMARY | 2023-11-05 11:55 | XMS_ITS | Encounter Summary ---
Author Organization [facility] [place] [address] Care Team Providers Care Advanced Developer Name Role Phone Lolly Oliveira MD Primary Care Provider [phone] Encounter Details Date Type Department Care Team (Late st Contact Info) Description 04/01/2021 3:30 PM EST Office Visit Dermatology at [address] [phone] Clay Ramírez MD [address], [place] [address] Psoriasis, guttate Social History Tobacco Use Types [...] AM EST Hospital Encounter [place] [address] Arrived documented as of this encounter Visit Diagnoses Diagnosis Psoriasis, guttate Other psoriasis documented in this encounter Care Teams Advanced Developer Relationship Specialty Start Date End Date Lolly Oliveira MD [address] [place] [address] PCP - General 07/17/13 documented as of this encounter
--- OUTSIDE RECORDS SUMMARY | 2023-11-05 11:55 | XMS_ITS | Encounter Summary ---
Author Organization [facility] [place] [address] Care Team Providers Care Leaf Stamper Name Role Phone Unavailable Primary Care Provider Unavailabl e Encounter Details Date Type Department Care Team (Late st Contact Info) Description 07/14/2013 Orders [place] [address] Eleno Christian MD [facility] [place] [address] Social History Tobacco Use Types Packs/Day Years [...] AM EST Hospital Encounter Non-Invasive [place] [address] Arrived documented as of this encounter Visit Diagnoses Not on filedocumented in this encounter
--- OUTSIDE RECORDS SUMMARY | 2023-11-05 11:55 | XMS_ITS | Encounter Summary ---
Author Organization [facility] [place] [address] Care Team Providers Care Metal Polisher And Buffer Apprentice Name Role Phone Lolly Oliveira MD Primary Care Provider [phone] Reason for Referral * Consultation (Routine) - Closed Specialty Diagnoses / Procedures Referred By Contact Referred To Contact Electrophysiology / Cardiology Diagnoses Left bundle branch block Cardiomyopathy, unspecified type AT MINIMUM PT NEEDS CONSIDERATION FOR DEFIBRILLATOR, ALSO CANDIDATE FOR RESYNCHRONIZATION THERAPY HER QRS IS >0.16 Lolly Oliveira MD [address] [place] [address] [facility] Cardiology [address] [place] [id number] Referral ID Status Reason Start Date Expiration Date V isits Requested Visits Authorized [id number] Closed Consult, Test & Treat PCP Updated and/or Approved 04/30/2022 04/30/2023 6 6 Encounter Details Date Type Department Care Team (Latest Contact Info) Description 04/30/2022 Transcribe Orders eDH Incoming Referrals [phone] Lolly Oliveira MD [address] [place], [place] [id number] Left bundle branch block; Cardiomyopathy, unspecified type [...] AM EST Hospital Encounter Non-[place] [address] Arrived Scheduled Referrals Name Type Priority Associated Diagnoses Orde r Schedule Referral to Cardiology Outpatient Referral Routine Left bundle branch block Cardiomyopathy, Unspecified Type Ordered: 04/30/2022 documented as of this encounter Visit Diagnoses Diagnosis Left bundle branch block Other left bundle branch block Cardiomyopathy, unspecified type documented in this encounter Care Teams Metal Polisher And Buffer Apprentice Relationship Specialty Start Date End Date Lolly Oliveira MD [address] [place] [address] PCP - General 07/17/13 documented as of this encounter
--- OUTSIDE RECORDS SUMMARY | 2023-11-05 11:55 | XMS_ITS | Encounter Summary ---
Author [place] [address] Care Team Providers Care Telecommunications Consultant Name Role Phone Lolly Oliveira MD Primary Care Provider [phone] Encounter Details Date Type Department Care Team [...] AM EST Hospital Encounter Non-[place] [address] Arrived documented as of this encounter Visit Diagnoses Not on filedocumented in this encounter Care Teams Telecommunications Consultant Relationship Specialty Start Date End Date Lolly Oliveira MD [address] [place] [address] PCP - General 07/17/13 documented as of this encounter
--- OUTSIDE RECORDS SUMMARY | 2023-11-05 11:55 | XMS_ITS | Encounter Summary ---
Author Organization [facility] [place] [address] Care Team Providers Care Paper Sorter Name Role Phone Lolly Oliveira MD Primary Care Provider [phone] Encounter Details Date Type Department Care Team (Latest Contact Info) Description 07/26/2013 9:44 AM EDT - 07/26/2013 11:59 PM EDT Hospital [place] [address] CLINIC, Lolly So MD [address] [place], [place] [id number] Mammographic microcalcification Discharge Disposition: Home Social History [...] AM EST Hospital Encounter Non-Invasive [place] [address] Arrived documented as of this encounter Procedures [...] are present on specimen digital X-ray. A Triggit-Stereo 13 Cylinder marker clip was placed. Cranio-caudal [...] mLs documented in this encounter Care Teams Paper Sorter Relationship Specialty Start Date End Date Lolly Oliveira MD [address] [place] [address] PCP - General 07/17/13 documented as of this encounter
--- OUTSIDE RECORDS SUMMARY | 2023-11-05 11:55 | XMS_ITS | Encounter Summary ---
[place] [address] Care Team Providers Care Sports Writer Name Role Phone Lolly Oliveira MD Primary Care Provider [phone] Encounter Details Date Type Department Care Team (Late st Contact Info) Description 07/17/2013 Orders [place] [address] Lolly Oliveira MD [address] [place], [place] [id number] Social History Tobacco Use Types Packs/Day Years [...] AM EST Hospital Encounter Non-Invasive [place] [address] Arrived documented as of this encounter Procedures Procedure Name Priority Date/Time Associated Diagnosis Comments REQUEST FOR 2ND READ MAMMO Routine 07/17/2013 8:45 AM EDT documented in this encounter Results * Request for 2nd read Mammo (07/17/2013 8:45 AM EDT) Anatomical Region Laterality Modality Other 07/17/2013 8:45 AM EDT Narrative 07/17/2013 3:57 PM EDT INTERPRETATION OF OUTSIDE MAMMOGRAMS (PERFORMED ON 07/06/13 AND 07/14/13) FROM [facility] DATED 07/17/13: ?? DIAGNOSTIC [...] filedocumented in this encounter Care Teams Sports Writer Relationship Specialty Start Date End Date Lolly Oliveira MD [address] [place] [address] PCP - General 07/17/13 documented as of this encounter
--- OUTSIDE RECORDS SUMMARY | 2023-11-05 11:55 | XMS_ITS | Encounter Summary ---
Author Organization [facility] [place] [address] Care Team Providers Care Skirt Trimmer Name Role Phone Lolly Oliveira MD Primary Care Provider [phone] Reason for Visit * Reason Comments Skin Check Encounter Details Date Type Department Care Team (Late st Contact Info) Description 11/23/2014 10:00 AM EDT Office Visit Dermatology at [address] [address] Clay Ramírez MD [address] [facility], [place] [address] Dermatofibroma; Nevus; Solar lentigo Discharge Disposition: Home [...] [facility] Hospital Encounter Non-[place]vasive [place] [address] Arrived documented as of this encounter Visit Diagnoses Diagnosis Dermatofibroma Benign neoplasm of skin, site unspecified Nevus Benign neoplasm of skin, site unspecified Solar lentigo Other dyschromia documented in this encounter Care Teams Skirt Trimmer Relationship Specialty Start Date End Date Lolly Oliveira MD [address] [place] [address] PCP - General 07/17/13 documented as of this encounter
--- OUTSIDE RECORDS SUMMARY | 2023-11-05 11:55 | XMS_ITS | Encounter Summary ---
[place] [address] Care Team Providers Care Turfgrass Management Professor Name Role Phone Lolly Oliveira MD Primary Care Provider [phone] Encounter Details Date Type Department Care Team [...] AM EST Hospital Encounter Non-Invasive [place] [address] Arrived documented as of this encounter Visit Diagnoses Not on filedocumented in this encounter Care Teams Turfgrass Management Professor Relationship Specialty Start Date End Date Lolly Oliveira MD [address] [place] [address] PCP - General 07/17/13 documented as of this encounter
--- OUTSIDE RECORDS SUMMARY | 2023-11-05 11:55 | XMS_ITS | Encounter Summary ---
Author Organization [place] [address] Care Team Providers Care Aircraft Layout Worker Name Role Phone Lolly Oliveira MD Primary Care Provider [phone] Encounter Details Date Type Department Care Team (Late st Contact Info) Description 07/26/2013 [place] [address] Eleno Christian MD [facility] [place] [address] Social History Tobacco Use Types Packs/Day Years [...] EST Hospital Encounter Non-Invasive [place] [address] Arrived documented as of this encounter Visit Diagnoses Not on filedocumented in this encounter Care Teams Aircraft Layout Worker Relationship Specialty Start Date End Date Lolly Oliveira MD [address] [place] [address] PCP - General 07/17/13 documented as of this encounter
--- OUTSIDE RECORDS SUMMARY | 2023-11-05 11:55 | XMS_ITS | Encounter Summary ---
Author Organization [facility] [place] [address] Care Team Providers Care Boilermaker Industrial Boilers Name Role Phone Lolly Oliveira MD Primary Care Provider [phone] Encounter Details Date Type Department Care Team (Latest Contact Info) Description 07/20/2013 9:26 AM EDT - 07/20/2013 11:59 PM EDT Hospital En[place] [address] CLINIC, Lolly So MD [address] [place], [place] [id number] Mammographic microcalcification Discharge Disposition: Home Social History [...] AM EST Hospital Encounter Non[place] [address] Arrived documented as of this encounter Procedures [...] layer and, therefore, are not sales representative supervisor of milk of calcium. Again, these have [...] layer and, therefore, are not sales representative supervisor of milk of calcium. Again, these have an amorphous andpunctate appearance and remain indeterminate. Stereotactic guided biopsy isrecommended. Alia Fraire MD IMG MAMMO ORDERABLES documented in this encounter Visit Diagnoses Diagnosis Mammographic microcalcification documented in this encounter Care Teams Boilermaker Industrial Boilers Relationship Specialty Start Date End Date Lolly Oliveira MD [address] [place] [address] PCP - General 07/17/13 documented as of this encounter
--- OUTSIDE RECORDS SUMMARY | 2023-11-05 11:55 | XMS_ITS | Encounter Summary ---
[place] [address] Care Team Providers Care Weight Recorder Name Role Phone Lolly Oliveira MD Primary Care Provider [phone] Encounter Details Date Type Department Care Team (Latest Contact Info) Description 07/26/2013 9:45 AM EDT - 07/26/2013 11:59 PM EDT Hospital En[place] [address] Mammographic microcalcification Social History Tobacco Use Types [...] AM EST Hospital Encounter Non-[place] [address] Arrived documented as of this encounter Procedures Procedure Name Priority Date/Time Associated Diagnosis Comments SURGICAL PATHOLOGY REPORT Routine 07/26/2013 12:12 PM EDT MAMMO SPECIMEN IMAGING DURING BIOPSY Routine 07/26/2013 11:58 AM EDT Mammographic microcalcification documented in this encounter Results * Surgical Pathology Report (07/26/2013 12:12 PM EDT) Final Diagnosis ? [facility] ? Provider: ?? ELENO CHRISTIAN ?? Pt. Name: ?? JING ALVARENGA ? Acc #: ?[id number] ?Pt. ? Col Date: ?? 07/26/2013 ? [...] Name: ?? JING ALVARENGA ? Acc #: ?[id number] ?Pt. ? Col Date: ?? 07/26/2013 ? [...] FCD, adenosis, DCIS 07/28/2013 8:29 AM EDT [facility] BREAST STRUCTURE / Unknown 07/26/2013 12:12 PM EDT 07/26/2013 12:12 PM EDT Eleno Christian MD PATHOLOGY/CYTOLOGY O RDERABLES Performing Organization Address City/State/[facility] Co in Phone Number [facility] [place] [address] * Mammo Specimen Imaging During Biopsy (07/26/2013 [...] microcalcification documented in this encounter Care Teams Weight Recorder Relationship Specialty Start Date End Date Lolly Oliveira MD [address] [place] [address] PCP - General 07/17/13 documented as of this encounter
--- OUTSIDE RECORDS SUMMARY | 2023-11-05 11:55 | XMS_ITS | Encounter Summary ---
Author Organization [facility] Address [facility] [place] [address] Care Team Providers Care Counter Weigher Name Role Phone Lolly Oliveira MD Primary Care Provider [phone] Reason for Visit * Auth/Cert (Routine) Specialty Diagnoses / Procedures Referred By Contac t Referred To Contact Diagnoses Left bundle-branch block, unspecified Other cardiomyopathies Left bundle branch block [I44.7]Nonischemic cardiomyopathy [I42.8] Procedures PRG CATH PLMT LEFT HEART CATH & ARTS W/INJ & ANGIO IMG S&I ELECTROPHYSIOLOGY PROCEDURE Lalit Mcmahon MD [facility] [place] [address] [facility] Referral ID Status Reason Start Date Expiration Date Visits Re quested Visits Authorized [id number] 1 1 Encounter Details Date Type Department Care Team (Late st Contact Info) Description 07/23/2022 1:08 PM EDT Anesthesia Event [place] [address] Monae Gonzalez MD [facility] [place] [address] Maria Elena Snyder CRNA [facility] [place] [address] Anesthesia Record Procedure Summary Procedure Name Responsible [...] 1307; median cubital vein (antecubital fossa), right; wrxi-hel-jurzco catheter system; Anatomical Landmarks; 20 gauge; 07/24/22; [...] 1343; metacarpal vein (top of hand), left; noog-ggb-vmbrdh catheter system; Anatomical Landmarks; US Not Used; [...] / Location: [facility] A-LAB ROOM 3 / [facility] EP LABS Anesthesia Start: 1308 Anesthesia Stop: 1633 Procedure: ELECTROPHYSIOLOGY PROCEDURE (Left) Diagnosis: Left bundle branch block Nonischemic cardiomyopathy (Left bundle branch block [I44.7]Nonischemic cardiomyopathy [I42.8]) Providers: Lalit Mcmahon MD Responsible Provider: Monae Gonzalez MD Anesthesia Type: general ASA Status: 4 All Anesthesia Providers: Anesthesiologist: Monae Gonzalez MD; Dominique Sen MD VISUAL DISPLAY ASSOCIATE: Maria Elena Snyder CRNA Vitals Value Taken Time BP 131/46 07/23/22 1700 Temp 36.7 ??C (98.1 ??F) 07/23/22 1627 Pulse 67 07/23/22 1703 Resp 14 07/23/22 1703 SpO2 98 % 07/23/22 1703 Pain Level Vitals shown include unvalidated device data. Patient Location: PACU/[facility] Level of Consciousness: Conscious but Sleepy [...] and Nonischemic CM (EF 15-20%)who presents for SHIPPING SUPERVISOR-D. No prior anesthetic records. Pt states [...] daughter/son and patient who. Plan discussed with VISUAL DISPLAY ASSOCIATE. Anesthesia Screening documented in this encounter Plan of Treatment Upcoming Encounters Date Type Department Care Team (Late st Contact Info) Description 01/16/2024 10:00 AM [facility] Hospital Encounter Non-Invasive [place] [address] Arrived documented as of this [...] mg documented in this encounter Care Teams Counter Weigher Relationship Specialty Start Date End Date Lolly Oliveira MD [address] [place] [address] PCP - General 07/17/13 documented as of this encounter
--- OUTSIDE RECORDS SUMMARY | 2023-11-05 11:55 | XMS_ITS | Encounter Summary ---
Author Organization [facility] [place] [address] Care Team Providers Care Dental Chair Assembler Name Role Phone Lolly Oliveira MD Primary Care Provider [phone] Encounter Details Date Type Department Care Team (Latest Contact Info) Description 07/18/2013 Orders [place] [address] Alia Fraire MD [facility] [address] Mammographic microcalcification (Primary Dx) Social History Tobacco [...] AM EST Hospital Encounter Non-[place] [address] Arrived documented as of this encounter Results [...] are present on specimen digital X-ray. A SaleStreamrk Eviva-Stereo 13 Cylinder marker clip was placed. [...] calcifications are present on specimendigital X-ray. A SaleStreamrk Eviva-Stereo 13 Cylinder marker clip was placed. [...] does not layer and, therefore, are not access service representative of milk of calcium. Again, these [...] does not layer and, therefore, are not access service representative of milk of calcium. Again, these have an amorphous andpunctate appearance and remain indeterminate. Stereotactic guided biopsy isrecommended. Alia Fraire MD IMG MAMMO ORDERABLES documented in this encounter Visit Diagnoses Diagnosis Mammographic microcalcification- Primary Mammographic microcalcification Mammographic microcalcification Mammographic microcalcification Mammographic microcalcification documented in this encounter Care Teams Dental Chair Assembler Relationship Specialty Start Date End Date Lolly Oliveira MD [address] [place] [address] PCP - General 07/17/13 documented as of this encounter
--- OUTSIDE RECORDS SUMMARY | 2023-11-05 11:55 | XMS_ITS | Encounter Summary ---
Author Organization [facility] [place] [address] Care Team Providers Care Supervisor Waterproofing Name Role Phone Lolly Oliveira MD Primary Care Provider [phone] Reason for Referral * Diagnostic Test (Routine) - Closed Specialty Diagnoses / Procedures Referred By Contac t Referred To Contact Radiology Diagnoses Left bundle branch block Nonischemic cardiomyopathy Procedures MRI Cardiac Morphology Function With Flow Velocity Quantification wwo Contrast MRI Cardiac Morphology Function wwo Contrast Lalit Mcmahon MD [facility] [place] [address] [place] [address] Referral ID Status Reason Start Date Expiration Date V isits Requested Visits Authorized [id number] Closed Specialty Service Requested 05/06/2022 11/07/2023 2 1 Encounter Details Date Type Department Care Team (Late st Contact Info) Description 05/06/2022 Orders Only Cardiology at [address] [address] Lalit Mcmahon MD [facility] [place] [address] Left bundle branch block; Nonischemic cardiomyopathy Social [...] EST Hospital Encounter Non-[place] [address] Arrived documented as of this encounter Results [...] who have questions please contact the health hospice care transitions coordinator that requested your imaging first. ? Narrative [...] patients who have questions please contactthe health hospice care transitions coordinator that requested your imaging first. Lalit Mcmahon MD IMG MRI ORDERABLES documented in this encounter Visit Diagnoses Diagnosis Left bundle branch block Other left bundle branch block Nonischemic cardiomyopathy Other primary cardiomyopathies Left bundle branch block Other left bundle branch block Nonischemic cardiomyopathy Other primary cardiomyopathies documented in this encounter Care Teams Supervisor Waterproofing Relationship Specialty Start Date End Date Lolly Oliveira MD [address] [place] [address] PCP - General 07/17/13 documented as of this encounter
--- OUTSIDE RECORDS SUMMARY | 2023-11-05 11:55 | XMS_ITS | Encounter Summary ---
[place] [address] Care Team Providers Care Steamtable Worker Name Role Phone Lolly Oliveira MD Primary Care Provider [phone] Encounter Details Date Type Department Care Team [...] AM EST Hospital Encounter [place] [address] Arrived documented as of this encounter Visit Diagnoses Not on filedocumented in this encounter Care Teams Steamtable Worker Relationship Specialty Start Date End Date Lolly Oliveira MD [address] [place] [address] PCP - General 07/17/13 documented as of this encounter
--- OUTSIDE RECORDS SUMMARY | 2023-11-05 11:55 | XMS_ITS | Encounter Summary ---
Author Organization [facility], Located Within [facility] [place] [address] Care Team Providers Care Sap Pp Consultant Name Role Phone Unavailable Primary Care Provider Unavailabl e Encounter Details Date Type Department Care Team (Late st Contact Info) Description 07/14/2013 External Results XRay at [address] [place] [address] Provider, Scanning Social History Tobacco Use Types [...] AM EST Hospital Encounter Non-Invasive Cardiology Lab [facility] [place] [address] Arrived documented as of this encounter Procedures [...]
--- OUTSIDE RECORDS SUMMARY | 2023-11-05 11:55 | XMS_ITS | Encounter Summary ---
Author Organization [facility] [place] [address] Care Team Providers Care Investment Associate Name Role Phone Lolly Oliveira MD Primary Care Provider [phone] Encounter Details Date Type Department Care Team (Late st Contact Info) Description 06/29/2011 Orders [place] [phone] Eleno Christian MD [facility] [place] [address] Social History Tobacco Use Types Packs/Day Years [...] AM EST Hospital Encounter Non-Invasive [place] [address] Arrived documented as of this encounter Procedures [...] on filedocumented in this encounter Care Teams Investment Associate Relationship Specialty Start Date End Date Lolly Oliveira MD [address] [place] [address] PCP - General 07/17/13 documented as of this encounter
--- OUTSIDE RECORDS SUMMARY | 2023-11-05 11:55 | XMS_ITS | Encounter Summary ---
Author Organization [facility] [address] Care Team Providers Care Reclamation Furnace Operator Name Role Phone Lolly Oliveira MD Primary Care Provider [phone] Reason for Visit * Reason Comments Follow-up Encounter Details Date Type Department Care Team (Late st Contact Info) Description 07/02/2022 8:00 AM EDT Office Visit Dermatology at [address] [phone] Clay Ramírez MD [address] [facility] [place] [address] Psoriasis, guttate Social History Tobacco Use Types [...] st Contact Info) Description 01/16/2024 10:00 AM [facility] Hospital Encounter [place] [address] Arrived documented as of this encounter Visit Diagnoses Diagnosis Psoriasis, guttate Other psoriasis documented in this encounter Care Teams Reclamation Furnace Operator Relationship Specialty Start Date End Date Lolly Oliveira MD [address] [place] [address] PCP - General 07/17/13 documented as of this encounter
== END 2023-11-06 23:59 | disposition home or self-care (01) ==
LOC: CR 11:51
PROVIDERS: PCP Family Medicine; Visit Provider Internal Medicine Cardiovascular Disease
DX: R69 Illness, unspecified (principal)

== ENCOUNTER → 2023-11-10 13:07 | Outpatient (BNVA) | payer MEDICARE, SELFPAY | PROVIDERS: PCP Family Medicine; Visit Provider Internal Medicine Cardiovascular Disease | DX: Z95.810 Presence of automatic (implantable) cardiac defibrillator (principal) | CPT/HCPCS: 93284 ==

== ENCOUNTER 2023-11-18 03:38 | Outpatient (CLI) | payer MEDICARE, SELFPAY ==
[2023-11-18 09:51] LABS: ALT 24 U/L (14-59); AST 29 U/L (15-37); Albumin 3.6 g/dL (3.4-5.0); Alkaline Phosphatase 135 U/L (46-116); BUN 27 mg/dL (7-18); Bilirubin, Total 0.59 mg/dL (0.2-1.0); CREATININE 1.3 mg/dL (0.55-1.02); Calculated LDL 64 mg/dL (<100); Chloride 103 mmol/L (98-107); Cholesterol 157 mg/dL (<200); Estimated GFR 42.88 (mL/min/1.73m2); Glucose 105 mg/dL (74-106); HDL Cholesterol 78 mg/dL (40-60); Potassium 4.2 mmol/L (3.5-5.1); Sodium 139 mmol/L (136-145); Total Protein 7.5 g/dL (6.4-8.2); Triglyceride 79 mg/dL (<150)
[2023-11-18 09:57] LABS: Hemoglobin A1C 5.9 % (<5.7)
== END 2023-11-18 03:39 | disposition home or self-care (01) ==
LOC: LBO 03:38
PROVIDERS: PCP Family Medicine; Visit Provider Family Medicine
DX: I10 Essential (primary) hypertension (principal); Z00.00 Encounter for general adult medical examination without abnormal findings
CPT/HCPCS: 80053; 80061; 83036

== ENCOUNTER 2023-12-03 13:05 | Outpatient (RCR) | payer SELFPAY ==
[2023-11-07 00:03] VITALS: BP 129/68; PULSE 67
[2023-11-10 11:00] VITALS: BP 127/70; PULSE 67; O2SAT 94
--- OUTSIDE RECORDS SUMMARY | 2023-11-10 11:48 | XMS_ITS | Referral Summary ---
Author Organization [facility] Address [address] [place] [address] Care Team Providers Care Client Services Associate Name Role Phone Lolly Oliveira MD Primary Care Provider [phone] Social History Tobacco Use Types Packs/Day Years Used Date Smoking Tobacco: Never Assessed Sex and Gender Information Value Date Recorded Sex Assigned at Not on file Gender Identity Not on file Sexual Orientation Not on file Plan of Treatment Not on file Care Teams Client Services Associate Relationship Specialty Start Date End Date Lolly Oliveira MD [address] [place] [address] PCP - General 11/13/08
--- OUTSIDE RECORDS SUMMARY | 2023-11-10 11:48 | XMS_ITS | Encounter Summary ---
Author Organization [facility] Address [address] [place] [address] Care Team Providers Care Boiler Inspector Name Role Phone Lolly Oliveira MD Primary Care Provider Encounter Details Date Type Department Care Team (Late st Contact Info) Description 06/16/2012 Results Only [facility] Laboratory Services - [facility] ([facility]) [address] [place], [place] [id number] Lolly Oliveira MD [address] [place], [place] [phone] Social History Tobacco Use Types Packs/Day Years [...] ? JING ALVARENGA ? Accession #: ? [id number] : ? 1950 (Age: 61) ??F ?Collect [...] MD PATHOLOGY ORDERABLES [facility] [address] [place] [address] documented in this encounter Visit Diagnoses Not on filedocumented in this encounter Care Teams Boiler Inspector Relationship Specialty Start Date End Date Lolly Oliveira MD [address] [place] [address] PCP - General 11/13/08 documented as of this encounter
--- OUTSIDE RECORDS SUMMARY | 2023-11-10 11:48 | XMS_ITS | Encounter Summary ---
Author Organization [facility] [place] [address] Care Team Providers Care Porter Baggage Name Role Phone Lolly Oliveira MD Primary Care Provider [phone] Encounter Details Date Type Department Care Team (Latest Contact Info) Description 10/18/2023 10:00 AM EDT - 10/18/2023 11:59 PM EDT Hospital Encounter [place] [address] Discharge Disposition: Home Social History Tobacco Use [...] with spacer fluticasone propionate (Flonase) 50 mcg/actuation [place], Suspension 1 spray by Each Nare route daily as needed. documented as of this encounter Plan of Treatment Upcoming Encounters Date Type Department Care Team (Late st Contact Info) Description 01/16/2024 10:00 AM EST Hospital Encounter Non-[place] [address] Arrived documented as of this encounter Procedures [...] filedocumented in this encounter Care Teams Porter Baggage Relationship Specialty Start Date End Date Lolly Oliveira MD [address] [place] [address] PCP - General 07/17/13 documented as of this encounter
--- OUTSIDE RECORDS SUMMARY | 2023-11-10 11:48 | XMS_ITS | Encounter Summary ---
Author Organization [facility] Address [address] [place] [address] Care Team Providers Care Linotype Machinist Apprentice Name Role Phone Lolly Oliveira MD Primary Care Provider [phone] Encounter Details Date Type Department Care Team (Late st Contact Info) Description 04/12/2007 Results Only [facility] conversion [address] [place] [address] Lolly Oliveira MD [address] [place], [place] [phone] Social History Tobacco Use Types Packs/Day Years [...] ? JING ALVARENGA ? Accession #: ? [id number] : ? 1950 (Age: 56) ??F ?Collect Date: ? 04/12/2007 Location: ? [facility] ? Receive Date: ? 04/13/2007 Provider: ?LOLLY OLIVEIRA MD Copy to: ? Specimen/Source: ?ThinPrep Pap Test, Cervix/Endocervix, processed on [employer] ThinPrep Imaging System, with manual evaluation Last [...] Oliveira MD PATHOLOGY ORDERABLES [facility] [address] [place] [address] documented in this encounter Visit Diagnoses Not on filedocumented in this encounter Care Teams Linotype Machinist Apprentice Relationship Specialty Start Date End Date Lolly Oliveira MD [address] [place] [address] PCP - General 11/13/08 documented as of this encounter
--- OUTSIDE RECORDS SUMMARY | 2023-11-10 11:48 | XMS_ITS | Encounter Summary ---
Author Organization [facility] Address [address] [place] [address] Care Team Providers Care Salesperson Flying Squad Name Role Phone Lolly Oliveira MD Primary Care Provider [phone] Encounter Details Date Type Department Care Team (Late st Contact Info) Description 03/21/2019 Lab Requisition [facility] Pathology & Laboratory Medicine - [address] [address] Unknown, Provider, Social History Tobacco Use Types [...] 211 - 911 pg/mL 03/22/2019 11:52 EST [facility] Blood VENOUS BLOOD / Unknown 03/16/2019 9:25 EST 03/21/2019 21:35 EST Provider Unknown CHEMISTRY & BLOOD GA S ORDERABLES [facility] [address] [place] [address] documented in this encounter Visit Diagnoses Not on filedocumented in this encounter Care Teams Salesperson Flying Squad Relationship Specialty Start Date End Date Lolly Oliveira MD [address] [place] [address] PCP - General 11/13/08 documented as of this encounter
--- OUTSIDE RECORDS SUMMARY | 2023-11-10 11:48 | XMS_ITS | Encounter Summary ---
Author Organization [facility] Address [address] [place] [address] Care Team Providers Care Yardmaster Name Role Phone Lolly Oliveira MD Primary Care Provider [phone] Encounter Details Date Type Department Care Team (Late st Contact Info) Description 11/13/2020 Lab Requisition [facility] Pathology & Laboratory Medicine - [address] [address] Outr Resulting Lab, Provider Social History Tobacco [...] Outr Resulting Lab MICROBIOLOGY - GENERAL ORDERABLES [facility] [address] [place] [address] * COVID-19 TESTING (11/13/2020 7:30 EDT) COVID-19 rt-PCR Result Negative Negative 11/14/2020 11:46 EDT [facility] Comment: This test has not [...] performed using the med SARS-CoV-2 assay ([employer] on the Med 6800 System Performing Lab Med 6800 [facility] Lab 11/14/2020 11:46 EDT [facility] Swab 11/13/2020 7:30 EDT 11/13/2020 20:57 EDT Provider Outr Resulting Lab MICROBIOLOGY - GENERAL ORDERABLES [facility] [address] [place] [address] documented in this encounter Visit Diagnoses Not on filedocumented in this encounter Care Teams Yardmaster Relationship Specialty Start Date End Date Lolly Oliveira MD [address] [place] [address] PCP - General 11/13/08 documented as of this encounter
--- OUTSIDE RECORDS SUMMARY | 2023-11-10 11:48 | XMS_ITS | Clinical Summary ---
Author Organization [facility] [place] [address] Care Team Providers Care Salad Bar Clerk Name Role Phone Lolly Oliveira MD Primary Care Provider Allergies Active Allergy Reactions Criticality Noted Date [...] spacer Active fluticasone propionate (Flonase) 50 mcg/actuation [place], Suspension 1 spray by Each Nare route [...] PM EDT Hospital Encounter Non-Invasive Cardiology [place] [address] Discharge Disposition: Home from Last [...] EST Hospital Encounter Non-Invasive Cardiology [place] [address] Arrived Health Maintenance Due Date Last Done [...] series) 11/07/2023 Medical Devices Implanted Type Area Stunner Device Identifier Shelf Expiration Date Model / Serial / Lot Bsx: [id number]: [id number]/18/2 023 Implanted: by Lalit Mcmahon MD (Quantity not on file) Defibrillator Chest Wall [employer] [id number] / [id number] / Bsx: [id number]: [id number]/18/2 023 Implanted: by Lalit Mcmahon MD (Quantity not on file) Lead Heart [employer] [id number] / [id number] / Bsx: [id number]: [id number] Implanted: by Lalit Mcmahon MD (Quantity not on file) Lead Heart [employer] [id number] / [id number] / Bsx: [id number]: [id number]/18/2 023 Implanted: by Lalit Mcmahon MD (Quantity not on file) Lead Heart [employer] 0672 / [id number] / Procedures Procedure Name Priority Date/Time Associated [...] Status decision made by: Patient Care Teams Salad Bar Clerk Relationship Specialty Start Date End Date Lolly Oliveira MD [address] [place] [address] PCP - General 07/17/13
--- OUTSIDE RECORDS SUMMARY | 2023-11-10 11:48 | XMS_ITS | Encounter Summary ---
Author Organization [facility] Address [address] [place] [address] Care Team Providers Care Information Management Specialist Name Role Phone Lolly Oliveira MD Primary Care Provider [phone] Encounter Details Date Type Department Care Team (Late st Contact Info) Description 02/11/2021 Lab Requisition [facility] Pathology & Laboratory Medicine - [address] [address] Outr Resulting Lab, Provider Social History Tobacco [...] Outr Resulting Lab MICROBIOLOGY - GENERAL ORDERABLES [facility] [address] [place] [address] * COVID-19 TESTING (02/11/2021 8:00 EST) COVID-19 rt-PCR Result Negative Negative 02/12/2021 14:17 EST [facility] Comment: This test has [...] was performed using the med SARS-CoV-2 assay ([employer] on the Med 6800 System Performing Lab Med 6800 [facility] Lab 02/12/2021 14:17 EST [facility] Swab 02/11/2021 8:00 EST 02/11/2021 22:22 EST Provider Outr Resulting Lab MICROBIOLOGY - GENERAL ORDERABLES [facility] [address] [place] [address] documented in this encounter Visit Diagnoses Not on filedocumented in this encounter Care Teams Information Management Specialist Relationship Specialty Start Date End Date Lolly Oliveira MD [address] [place] [address] PCP - General 11/13/08 documented as of this encounter
--- OUTSIDE RECORDS SUMMARY | 2023-11-10 11:48 | XMS_ITS | Encounter Summary ---
Author Organization [facility] Address [address] [place] [address] Care Team Providers Care Community Health Nurse Name Role Phone Lolly Oliveira MD Primary Care Provider [phone] Encounter Details Date Type Department Care Team (Late st Contact Info) Description 04/17/[address] [facility] conversion [address] [place] [address] Lolly Oliveira MD [address] [place], [place] [phone] Social History Tobacco Use Types Packs/Day Years [...] ? JING ALVARENGA ? Accession #: ? [id number] : ? 1950 (Age: 54) ??F ?Collect Date: ? 04/17/2005 Location: ? [facility] ? Receive Date: ? 04/21/2005 Provider: ?LOLLY OLIVEIRA MD Copy to: ? Specimen/Source: ?ThinPrep Pap Test, Cervix/Endocervix, processed on [employer] LabPrep Imaging System, with manual evaluation Last Menstrual [...] Oliveira MD PATHOLOGY ORDERABLES [facility] [address] [place] [address] documented in this encounter Visit Diagnoses Not on filedocumented in this encounter Care Teams Community Health Nurse Relationship Specialty Start Date End Date Lolly Oliveira MD [address] [place] [address] PCP - General 11/13/08 documented as of this encounter
--- OUTSIDE RECORDS SUMMARY | 2023-11-10 11:48 | XMS_ITS | Encounter Summary ---
Author Organization [facility] Address [address] [place] [address] Care Team Providers Care Boat Joiner Name Role Phone Unavailable Primary Care Provider Unavailabl e Encounter Details Date Type Department Care Team (Late st Contact Info) Description 11/07/2008 Orders Only [facility] Laboratory Services - [facility] ([facility]) [address] [place] [address] Kenneth Parker MD [address] [place] [address] Social History Tobacco Use Types Packs/Day Years [...] ? LYLE, JING ? Accession #: ? [id number] ? : ? 1950 (Age: 58) ??F [...] ORDERABLES Performing Organization Address City/State/[facility] Co de Phone Number [facility] [address] [place] [address] documented in this encounter Visit Diagnoses Not on filedocumented in this encounter
--- OUTSIDE RECORDS SUMMARY | 2023-11-10 11:48 | XMS_ITS | Encounter Summary ---
Author Organization [facility] Address [address] [place] [address] Care Team Providers Care Outside Rigger Name Role Phone Lolly Oliveira MD Primary Care Provider [phone] Encounter Details Date Type Department Care Team (Late st Contact Info) Description 05/29/2002 Results Only [facility] [address] [place] [address] Silvia Diehl, [address] [place] [phone] Social History Tobacco Use Types Packs/Day Years [...] ? JING MOTT ? Accession #: ? [id number] : ? 1950 (Age: 51) ??F ?Collect Date: ? 05/29/2002 Location: ? [facility] ? Receive Date: ? 05/31/2002 Provider: ?SILVIA DIEHL [place] Copy to: ? Specimen/Source: ?ThinPrep Pap Test, [...] Report [facility] 05/29/2002 05/31/2002 Silvia Diehl [place] PATHOLOGY ORDERABLES [facility] [address] [place] [address] documented in this encounter Visit Diagnoses Not on filedocumented in this encounter Care Teams Outside Rigger Relationship Specialty Start Date End Date Lolly lOiveira MD [address] [place] [address] PCP - General 11/13/08 documented as of this encounter
--- OUTSIDE RECORDS SUMMARY | 2023-11-10 11:48 | XMS_ITS | Encounter Summary ---
Author Organization [facility] Address [address] [place] [address] Care Team Providers Care Quality Control Tester Name Role Phone Lolly Oliveira MD Primary Care Provider [phone] Encounter Details Date Type Department Care Team (Late st Contact Info) Description 04/25/2009 Orders Only [facility] Laboratory Services - [facility] ([facility] [address] [place], [place] [phone] Lolly Oliveira MD [address] [place], [place] [phone] Social History Tobacco Use Types Packs/Day Years [...] ? JING ALVARENGA ? Accession #: ? [id number] ? : ? 1950 (Age: 58) ??F [...] reviewed and electronically signed by: ? Helena Grapevine, [place](ASCP) ? Report Date: ??04/29/2009 10:38 ? End of Report ? [facility] 04/25/2009 04/26/2009 Lolly Oliveira MD PATHOLOGY ORDERABLES [facility] [address] [place] [address] documented in this encounter Visit Diagnoses Not on filedocumented in this encounter Care Teams Quality Control Tester Relationship Specialty Start Date End Date Lolly Oliveira MD [address] [place] [address] PCP - General 11/13/08 documented as of this encounter
--- OUTSIDE RECORDS SUMMARY | 2023-11-10 11:48 | XMS_ITS | Data Portability ---
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 04:53:39 Tdap 04/12/2007 completed Not Available [facility] 04:53:39 zoster live 06/16/2012 completed Not Available [facility] 01/15/2023 04:53:40 Pneumococcal conjugate PCV 13 09/17/2015 completed Not Available [facility] 01/15/2023 04:53:40 Influenza, high-dose, trivalent, PF 11/26/2017 completed Not Available [facility] 01/15/2023 04:53:41 Td(adult) unspecified formulation 09/30/1992 completed Not Available [facility] 01/15/2023 04:53:41 Influenza, split virus, trivalent, preservative 11/28/2015 completed Not Available [facility] 01/15/2023 04:53:41 Influenza, split virus, trivalent, preservative 01/04/2015 completed Not Available [facility] 01/15/2023 04:53:41 Influenza, split virus, quadrivalent, PF 12/21/2018 completed Not Available [facility] 01/15/2023 04:53:41 zoster recombinant 08/30/2018 completed Not Available [facility] 01/15/2023 04:53:42 zoster recombinant 01/26/2018 completed Not Available [facility] 01/15/2023 04:53:42 Influenza, high-dose, quadrivalent, PF 12/04/2020 completed Not Available [facility] 01/15/2023 04:53:43 Influenza, high-dose, quadrivalent, PF 12/11/2019 completed Not Available [facility] 01/15/2023 04:53:43 Influenza, high-dose, quadrivalent, PF 12/29/2021 completed Not Available [facility] 01/15/2023 04:53:43 COVID-19, mRNA, LNP-S, PF, 100 mcg/0.5mL dose or 50 mcg/0.25mL dose 07/09/2021 completed Not Available [facility] 01/15/2023 04:53:43 COVID-19 vaccine, vector-nr, rS-Ad26, PF, 0.5 mL 05/02/2020 completed Not Available [facility] 01/15/2023 04:53:44 SARS-COV-2 (COVID-19) vaccine, UNSPECIFIED 05/31/2020 completed Not Available [facility] 01/15/2023 04:53:44 SARS-COV-2 (COVID-19) vaccine, UNSPECIFIED 01/03/2021 completed Not Available [facility] 01/15/2023 04:53:44 pneumococcal polysaccharide PPV23 07/05/2014 completed Not Available [facility] 2022 04:53:45 Hep B, unspecified formulation 04/14/1993 completed Not Available [facility] 01/15/2023 04:53:45 Hep B, unspecified formulation 09/30/1992 completed Not Available [facility] 01/15/2023 04:53:46 Hep B, unspecified formulation 10/31/1992 completed Not Available [facility] 01/15/2023 04:53:46 influenza, unspecified formulation 12/11/2009 completed Not Available [facility] 01/15/2023 04:53:47 influenza, unspecified formulation 12/13/2012 completed Not Available [facility] 01/15/2023 04:53:47 influenza, unspecified formulation 12/18/2008 completed Not Available [facility] 01/15/2023 04:53:47 influenza, unspecified formulation 12/19/2010 completed Not Available [facility] 01/15/2023 04:53:47 influenza, unspecified formulation 12/30/2006 completed Not Available [facility] 01/15/2023 04:53:48 influenza, unspecified formulation 01/09/2014 completed Not Available [facility] 01/15/2023 04:53:48 influenza, unspecified formulation 01/26/2008 completed Not Available [facility] 01/15/2023 04:53:48 influenza, unspecified formulation 02/16/2012 completed Not Available [facility] 01/15/2023 04:53:48 Influenza, high-dose, quadrivalent, PF 12/17/2022 completed Not Available [facility] 03/19/2023 05:33:03 COVID-19, mRNA, LNP-S, PF, herminio-sucrose, 30 mcg/0.3 mL 12/28/2022 completed Not Available [facility] 03/19/2023 05:33:03 Past Encounters Encounter ID Performer Location Encounter Start Date Encounter Closed Date Diagnosis/Indication Diagnosis SNOMED-CT Code Diagnosis ICD10 Code [id number] JU CORTEZ MD [address] [place] [address] 05/21/2023 10:03:54 05/21/2023 11:37:49 Onychomycosis 218632026 B35.1 Asthma 858517653 J45.90 9 Cardiomyopathy 54191966 I10 Disorder of hip joint 42 0428753 M12.859 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 Hyperlipidemia 27221816 E78.5 Vulval and /or perineal noninflammatory disorders 976244728 N90.9 Adult heal th examination 994922155 Z00.[id number] [address] [place] [address] 09/01/2023 10:23:16 09/01/2023 13:28:10 Vertigo 181691247 R42 Impacted c erumen of bilateral ears 0496284319 282029 H61.23 Health Concerns Section Related Observation LastModified by Organization Detai ls LastModified Time None Recorded Concern Status LastModified by Organization Details LastModified Time None Recorded Advance Directives Directive None Recorded Payers Encounter Date Sequence Insurance Name Policy Number Policy Lema Covered Member ID Lema Member ID Guarantor Name 05/21/2023 1 [id number]ANT[place] - [place]PO) [id number] Luna Barber Mott [id number] Luna Barber Mott 09/01/2023 1 [id number] - [place]) [id number] Luna Mott [id number] Luna Mott Notes Date Note Type Note Provider Name and Address Organization Details Recorded Time 05/21/2023 text/html HPI Notes: Thais here today for an annual wellness exam JU CORTEZ MD [address], [place], [address], [facility]. 05/24/2023 18:32:35 09/01/2023 [...] it. JESSICA INGRAM PA-C [address], [place], [address], [facility], [facility]. 09/01/2023 13:55:07 OBGyn Episode No OBEpisode recorded.
--- OUTSIDE RECORDS SUMMARY | 2023-11-10 11:48 | XMS_ITS | Clinical Summary ---
Author Organization [facility] Address [address] [place] [address] Care Team Providers Care Livestock Broker Name Role Phone Lolly Oliveira MD Primary Care Provider [phone] Social History Tobacco Use Types Packs/Day Years [...] COVID-19 Vaccine ( season) 2022 Care Teams Livestock Broker Relationship Specialty Start Date End Date Lolly Oliveira MD [address] [place], [place] [id number] PCP - General 11/13/08
--- OUTSIDE RECORDS SUMMARY | 2023-11-10 11:48 | XMS_ITS | Encounter Summary ---
Author Organization [facility] Address [address] [place] [address] Care Team Providers Care Secy Name Role Phone Lolly Oliveira MD Primary Care Provider [phone] Encounter Details Date Type Department Care Team (Late st Contact Info) Description 03/06/2003 Results Only [facility] conversion [address] [place] [address] Lolly Oliveira MD [address] [place], [place] [id number] Social History Tobacco Use Types Packs/Day Years [...] [place] de Phone Number [facility] [address] [place] [address] documented in this encounter Visit Diagnoses Not on filedocumented in this encounter Care Teams Secy Relationship Specialty Start Date End Date Lolly Oliveira MD [address] [place] [address] PCP - General 11/13/08 documented as of this encounter
--- OUTSIDE RECORDS SUMMARY | 2023-11-10 11:48 | XMS_ITS | Continuity of Care Document ---
Author Organization [place] [facility], [facility] Address [address] [place] [address] Care Team Providers Care Senior Functional Analyst Name Role Phone [facility] OFF[facility] Optometris t ASHLY THURSTON Cultural Anthropology Professor JAYCOB MARTINEZ Orthopedic Surgeon [phone] ROXANA KELLEY Overhead Cleaner Maintainer FLOWER RAMSEY Dentist [phone] Assessment No assessment recorded. Plan of Treatment Reminders Order Date Submit Date Provider Last Modified By Organization Details Last Modified Time Details Appointments Follow Up 30 2023 07:30A M Not available Not available Not available Lab None recorded. Referral physical therapist referral 2023 024 Chinedu Amato PT, [address], [place], [address], 10/18/2023 12:01:58 Procedures None recorded. Surgeries None recorded. Imaging None recorded. Medication Orders meclizine 25 mg tablet 2023 024 [id number], [address] [place], [address], 09/01/2023 13:22:14 Patient TargetsNo targets recorded. Patient Instructions Encounter Date Encounter Id Patient Instructions Last Modified By Organization Details Last Modified Time 09/01/2023 [id number] 1. The earwax from your ears were [...] Not available 09/01/2023 13:23:33 Reason for Referral Adjunct Faculty Referral for Onyc homycosis onychomycosis, calluses Referring Physician: Lolly Oliveira, Family Medicine, Encounter Date: 05/21/2023 Physical Therapist Referral for Vertigo Referring Physician: Jessica Wallis Family Medicine, Encounter Date: 09/01/2023 Problems Name Problem SNOMED Code Status Onset Date Resolution Date Notes Provider Name and Address Organization Details Recorded Time Asthma 908419882 Active 200204/14/19 22 - Comments only - Lolly Oliveira MD - Not too much of an issue recently . She does keep albutero l inhaler availabl e if needed. Problem Code: 493.90; Problem Code Type: ICD-9; Not Available [facility] 3 04:01:51 Atypical glandula r cells on cervical Papanico laou smear 941373317 Active 2007 Problem Code: 795.00; Problem Code Type: ICD-9; Not Available [facility] 3 04:01:51 Dizzines s and giddines s 911535151 Active 201404/14/19 22 - Comments only - Lolly Oliveira MD - , Intermit tent. She has learned to deal with it using the Jd's maneuver . She will call if any signific ant worsenin g. Problem Code: R42; Problem Code Type: ICD-10; Not Available [facility] 3 04:01:52 [place]ia l hyperten pura 65192011 Active 201401/12/20 22 - Comments only - Lolly Oliveira MD - Blood pressure well controll ed with the lisinopr il and Toprol. Problem Code: I10; Problem Code Type: ICD-10; Not Available [facility] 3 04:01:52 Adult health examinat ion Active 201504/16/19 23 - Comments only - Lolly Oliveira MD - UTD with mammo, has a DEXA schedule d ( dx of osteopor osis), will check an A1c. Problem Code: Z00.00; Problem Code Type: ICD-10; Not Available [facility] 3 04:01:52 Disorder of skin and/or subcutan eous tissue 84505174 Active 201509/17/19 16 - Comments only - Lolly Oliveira MD - the lesions on the buttucks appear to have been possible boils that are now healing vs atopic rxn resolvin g. At this point no tx needed. If worsenin g/recurr ing she will call. I don't believe these are related to rubbing while walking Problem Code: L98.9; Problem Code Type: ICD-10; Not Available [facility] 3 04:01:52 Pain in right hip joint 53062092479 9102 Completed 201512/02/2022 Problem Code: M25.551; Problem Code Type: ICD-10; Not Available [facility] 3 04:01:52 Onychomy cosis due to dermatop hyte 394702074 Active 201609/23/19 17 - Comments only - Lolly Oliveira MD - she is going to contact podiatry to find out if they have any other topical txs that might work. She is not interest ed in systemic tx Problem Code: B35.1; Problem Code Type: ICD-10; Not Available [facility] 3 04:01:52 Hearing loss of right ear 048019126 Completed 201712/10/2017 11/27/19 18 - Comments only - Naseem Gil PA-C - Cerumino sis treated in-offic e today. If hearing fails to be fully restored over the course of the weekend, will consider for ENT refer for formal audiolog y assessme nt. Problem Code: H91.91; Problem Code Type: ICD-10; Not Available [facility] 3 04:01:52 Abnormal weight gain 459141740 Active 2018 Problem Code: R63.5; Problem Code Type: ICD-10; Not Available [facility] 3 04:01:53 Disorder of hip joint 127585659 Active 201801/12/20 22 - Comments only - Lolly Oliveira MD - ,rt. For which she would like a total hip replacem ent. 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 She is trying to continue being as mobile as she can comforta silva. Problem Code: M12.859; Problem Code Type: ICD-10; Not Available [facility] 3 04:01:53 Acute vaginiti s 55797449 Completed 201801/04/2019 12/22/19 19 - Comments only - Naseem Gil PA-C - Will await resutls of today's collecte d VPS to determin e indicati on for further treatmen t. 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 Addition ally, could consider to use OTC DESITIN for acute skin healing. Problem Code: L30.4; Problem Code Type: ICD-10; Not Available [facility] 3 04:01:53 Pre-surg cecilia evaluati on Completed 201801/23/2019 01/10/20 19 - Comments only - Naseem Gil PA-C - Today's EKG shows stable LBBB (compare d to study 10/19/14) with NSR at 69bpm. Patient to f/u for pre-oper ative laborato ry testing and anesthes ia consult as schedule d 01/17/19 . Problem Code: Z01.818; Problem Code Type: ICD-10; Not Available [facility] 3 04:01:53 Hip joint prosthes is present 602386324 Active 2018 Problem Code: Z96.642; Problem Code Type: ICD-10; Not Available [facility] 3 04:01:53 Dyspnea 001859555 Completed 201903/27/2019 03/13/19 20 - Comments only [...] R06.02; Problem Code Type: ICD-10; Not Available [facility] 3 04:01:54 Edema 773855720 Completed 201906/21/2019 06/07/19 20 - Comments only - Naseem iGl PA-C - Patient reassure d nothing concerni ng on today's PX to raise suspicio n for DVT. Suspect minor calf muscle strain. OK to continue to use compress ion stocking s for symtpoma tic relief and consider calf stretche s. F/U PRN. Problem Code: R60.9; Problem Code Type: ICD-10; Not Available [facility] 3 04:01:54 Headache 20900283 Active 2020 Problem Code: R51.9; Problem Code Type: ICD-10; Not Available [facility] 3 04:01:54 Guttate psoriasi s 61826429 Active 202004/16/19 23 - Comments only - Lolly Oliveira MD - being followed by mika mercado under reasonab le control with the UV tx and prn clobetas ol cream Problem Code: L40.4; Problem Code Type: ICD-10; Not Available [facility] 3 04:01:54 Stool finding 824902693 Active 2021 Problem Code: R19.5; Problem Code Type: ICD-10; Not Available [facility] 3 04:01:54 Speciali rubind medical examinat ion Active 2021 Problem Code: Z01.89; Problem Code Type: ICD-10; Not Available [facility] 3 04:01:54 Edema 616413208 Active 2021 Problem Code: R60.9; Problem Code Type: ICD-10; Not Available [facility] 3 04:01:55 Screenin g mammogra phy Active 2021 Problem Code: Z12.31; Problem Code Type: ICD-10; Not Available [facility] 3 04:01:55 Abnormal finding on evaluati on procedur e 663348335 Active 2021 Problem Code: R89.9; Problem Code Type: ICD-10; Not Available [facility] 3 04:01:55 Dyspnea 917285773 Active 2021 Problem Code: R06.02; Problem Code Type: ICD-10; Not Available [facility] 3 04:01:55 Cardiomy opathy 15409278 Active 202109/05/19 23 - Comments only - Lolly Oliveira MD - Clinical ly remainin g stable on the lisinopr il, furosemi de 20 mg daily, Jardianc e, Toprol, rosuvast atin, aspirin. ICD/pace maker in place. Followin g with cardiolo gy. She is walking/ exercisi ng regularl y. Problem Code: I42.9; Problem Code Type: ICD-10; Not Available [facility] 3 04:01:55 Heart failure 56407269 Active 2021 Problem Code: I50.9; Problem Code Type: ICD-10; Not Available [facility] 3 04:01:56 Family history of breast cancer 790891700 Active 2021 Problem Code: Z80.3; Problem Code Type: ICD-10; Not Available [facility] 3 04:01:56 Burn 687600837 Active 202101/12/20 22 - Comments only - Lolly Oliveira MD - Healing slowly, no evidence of infectio n. If she has any further question s regardin g this she will let us know. Problem Code: T30.0; Problem Code Type: ICD-10; Not Available [facility] 3 04:01:56 Senile osteopor osis 50833333 Active 202101/12/20 22 - Comments only - Lolly Oliveira MD - Due for a repeat DEXA scan. Ordered. She does take an over-the -counter vitamin D suppleme nt I believe. Problem Code: M81.0; Problem Code Type: ICD-10; Not Available [facility] 3 04:01:56 Hyperlip idemia 67321570 Active 202204/16/19 23 - Comments only - Lolly Oliveira MD - will check LFTs, CPK, on rosuvast atin 5mg daily which has brought her lipids into goal range. Problem Code: E78.5; Problem Code Type: ICD-10; Not Available [facility] 3 04:01:56 Adjustme nt disorder 37186091 Active 2022 Problem Code: F43.20; Problem Code Type: ICD-10; Not Available [facility] 3 04:01:56 Dysuria 79788139 Active 2022 Problem Code: R30.9; Problem Code Type: ICD-10; Not Available [facility] 3 04:01:57 Itching of skin 560748019 Active 2022 Problem Code: L29.8; Problem Code Type: ICD-10; Not Available [facility] 3 04:01:57 Automati c implanta ble cardiac defibril lator in situ 867731056 Active 2022 Problem Code: Z95.810; Problem Code Type: ICD-10; Not Available [facility] 3 04:01:57 Glycosur ia 81041748 Active 202209/05/19 23 - Comments only - Lolly Oliveira MD - , No prior diagnosi s of diabetes . She is developi ng diabetes that could be number perineal symptoms . 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 [facility] l hyperten pura 10233325 Completed 200107/25/2015 Problem Code: 401.9; Problem Code Type: ICD-9; Not Available [facility] 3 04:02:03 Polyp of colon 46448102 Completed 201006/05/2021 Problem Code: K63.5; Problem Code Type: ICD-10; Not Available [facility] 3 04:02:03 History of vertigo 719984741 Completed 201012/02/2022 01/11/20 15 - Improved - Lolly Oliveira MD - she will continue with Jd's manoever PRN and call if worsenin g/nothin g helping Not Available [facility] 3 04:02:04 Acute sinusiti s 13527898 Completed 201912/16/2020 Problem Code: J01.90; Problem Code Type: ICD-10; Not Available [facility] 3 04:02:05 Pain of right lower leg 89877858284 9108 Completed 202101/11/2022 Problem Code: M79.661; Problem Code Type: ICD-10; Not Available [facility] 3 04:02:06 Hyperlip idemia 96948853 Completed 200910/19/2017 Not Available [facility] 3 04:02:07 Dizzines s and giddines s 300721363 Completed 201408/14/2019 Problem Code: R42; Problem Code Type: ICD-10; Not Available [facility] 3 04:02:07 Hyperten sive disorder 99474587 Completed 201011/03/2018 Not Available [facility] 3 04:02:09 Diarrhea 93882752 Completed 201610/19/2017 Problem Code: R19.7; Problem Code Type: ICD-10; Not Available [facility] 3 04:02:10 Anemia 849695189 Completed 201901/11/2022 Problem Code: D64.9; Problem Code Type: ICD-10; Not Available [facility] 3 04:02:10 Macy - lesion 598061270 Active 2022 Problem Code: L84; Problem Code Type: ICD-10; Not Available [facility] 4 05:37:51 Foot callus 359702957 Active [address] [place], [address] , [facility] 4 11:29:32 Onychomy cosis 074706508 Active [address], [place], [address] , [facility] 4 11:29:44 Vertigo 022831053 Active [address], [place], [address] , [facility] 4 13:20:57 Impacted cerumen of bilatera l ears 34599880680 39249 Active [address], [facility] [address] , [facility] 4 13:21:03 Notes:*Problem Name: Colonos copy 2005 - Hyperplastic Polyp *ICD-10 Codes: *Problem Status: inactive *Comments: *Note Date: 04/29/2010 *Problem Name: Rt Breast Bx 2013 - Adenosis *ICD-10 Codes: *Problem Status: active *Comments: *Note Date: 08/01/2013 Problem Notes None recorded. Procedures Surgical History Date Name Laterality Status Provider Name and Address Organization Details Recorded Time 4 Cerumen Removal completed N[address]AN [address], [facility] [address], [facility] 09/01/2023 13:52:38 3 total replacement of right hip joint [facility] 17:11:24 Imaging Results None recorded. Procedure Notes None recorded. Medical Equipment None Reported. Allergies Allergen ID Allergen Name Allergen Category Reaction Reaction Severity Criticality Documentation Date Start Date Code Code System Note Provider Name and Address Organization Details Recorded Time 55740 sulfadiaz ine medicatio n tachycard ia mild Not available 01/15/20232001 35014 RxNorm Tachy cardi a Not Available [facility] 3 16:22:29 Medications Name Sig Start Date [...] Updated DateTime 4 159.385 cm 38.7 kg/m2 13167.8 2 g 97.1 [degF] 17 /min 95 % 95 % 60 /min 139 mm[Hg] 69 mm[Hg] Vonda Fields RN [place] - [facility] 4 12:25:13 Social History Question Answer Notes LastModified by Organizat ion Details LastModified Time Tobacco Smoking Status Never Smoker Davey Allen MA null, [place] - [facility]. 05/21/2023 10:57:21 Would You Say That, In General, Your Health Is Very Good [email or web address] Information not available 05/21/2023 How Often Does Anyone, Including Family, Physically Hurt You? Never [email or web address] Information not available 05/21/2023 How Often Does Anyone, Including Family, Insult Or Talk Down To You? Never [email or web address] Information no t available 05/21/2023 How Often Does Anyone, Including Family, Threaten You With Harm? Never [email or web address] Information not available 05/21/2023 How Often Does Anyone, Including Family, Scream Or Curse At You? Never [email or web address] Information not available 05/21/2023 Within The Past 12 Months, You Worried That Your Food Would Run Out Before You Got Money To Buy More. Never True [email or web address] Information n ot available 05/21/2023 Within The Past 12 Months, The Food You Bought Just Didn't Last And You Didn't Have Money To Get More. Never True Information n ot available 05/21/2023 How Hard Is It For You To Pay For The Very Basics Like Food, Housing, Medical Care, And Heating? Would You Say It Is: Not Hard At All [email or web address] Information not available 05/21/2023 In The Past 12 Months, Has Lack Of Reliable Transportation Kept You From Medical Appointments, Meetings, Work Or From Getting Things Needed For Daily Living? No [email or web address] Information not available 05/21/2023 What Is Your Housing Situation Today? I Have Housing. [email or web address] Information not available 05/21/2023 How Often In The Past Year Have You Used Marijuana (including Smoking, Vaping, Dabbing, Or Edibles)? Never [email or web address] Information not available 05/21/2023 How Often In The Past Year Have You Used Prescription Medications That Were Not Prescribed To You? Never Information n ot available 05/21/2023 How Often In The Past Year Have You Taken Your Own Prescription Medication More Than The Way It Was Prescribed Or For Different Reasons Than Its Intended Purpose? Never [email or web address] Information no t available 05/21/2023 How Often In The Past Year Have You Used Other Drugs (for Example, Heroin, Cocaine, Meth, Salvia, Inhalants)? Never Information not available 05/21/2023 Have You Ever Used IV Drugs? No Information not available 05/21/2023 What Matters Most To You? Staying Healthy, Keeping Active. Getting Exercise And Losing Some Weight [email or web address] Information not available 05/21/2023 During The Past Four Weeks Has Your Physical And Emotional Health Limited Your Social Activities With Family And Friends, Neighbors, Or Groups? Not At All [email or web address] Information not available 05/21/2023 During The Past Four Weeks, Was Someone Available To Help You If You Needed And Wanted Help? (For Example, If You [place] Very Nervous, Lonely, Or Blue; Got Sick And Had To Stay In Bed; Needed Someone To Talk To; Needed Help With Daily Chores; Or Needed Help Just Taking Care Of Yourself.) No- Not At All [email or web address] Information n ot available 05/21/2023 During The Past Four Weeks, What Was The Hardest Physical Activity You Could Do For At Least 2 Minutes? Moderate [email or web address] Information not available 05/21/2023 Can You Get To Places Out Of Walking Distance Without Help? (For Example, Can You Travel Alone On Buses Or Taxis, Or Drive Your Own Car?) Yes [email or web address] Information not available 05/21/2023 Can You Go Shopping For Groceries Or Clothes Without Someone? s Help? Yes [email or web address] Information not available 05/21/2023 Can You Prepare Your Own Meals? Yes [email or web address] Information not available 05/21/2023 Can You Do Your Housework Without Help? Yes [email or web address] Information not available 05/21/2023 Because Of Any Health Problems, Do You Need The Help Of Another Person With Your Personal Care Needs Such As Eating, Bathing, Dressing, Or Getting Around The House? No [email or web address] Information not available 05/21/2023 Can You Handle Your Own Money Without Help? Yes [email or web address] Information not available 05/21/2023 Are You Having Difficulties Driving Your Car? No [email or web address] Information no t available 05/21/2023 Do You Always Fasten Your Seat Belt When You Are In A Car? Yes- Usually [email or web address] Information not available 05/21/2023 How Often During The Past Four Weeks Have You Been Bothered By Any Of The Following Problems? Falling Or Dizzy When Standing Up? Never [email or web address] Information not available 05/21/2023 Sexual Problems? Never [email or web address] Informat ion not available 05/21/2023 Trouble Eating Well? Sometimes [email or web address] Information not available 05/21/2023 Teeth Or Denture Problems? Sometimes [email or web address] Information not available 05/21/2023 Problems Using The Telephone? Never [email or web address] Information not available 05/21/2023 Tiredness Or Fatigue? Sometimes [email or web address] Information not available 05/21/2023 Have You Had 2 Or More Falls Or Sustained An Injury With A Fall In The Last Year? No [email or web address] Information no t available 05/21/2023 Do You Have Difficulty With Walking Or Balance? No [email or web address] Information not available 05/21/2023 Do You Currently Use A Hearing Device? No [email or web address] Information not available 05/21/2023 Do You Currently Have Any Trouble With Your Vision? Yes Information no t available 05/21/2023 Do You Exercise For About 20 Minutes Three Or More Days A Week? Yes- Most Of The Time [email or web address] Information not available 05/21/2023 Are There Any Safety Concerns In Your Home (see Attached CDC Pamphlet)? No [email or web address] Information not available 05/21/2023 How Often Do You Have Trouble Taking Medicines The Way You Have Been Told To Take Them? I Always Take Them As Prescribed [email or web address] Information not available 05/21/2023 How Confident Are You That You Can Control And Manage Most Of Your Health Problems? Very Confident [email or web address] Information not available 05/21/2023 Do You Currently Have Any Difficulty With Your Hearing? No [email or web address] Information not available 05/21/2023 Date Of Most Recent SBINS 05/21/2023 Information not available 05/21/2023 What Was The Date Of Your Most Recent Tobacco Screening? 09/01/2023 Information not available 09/01/2023 Has Tobacco Cessation Counseling Been Provided? Yes Information not available 09/01/2023 On What Date Was Tobacco Cessation Counseling Provided? 09/01/2023 Information not available 09/01/2023 Do You Or Have You Ever Used Any Other Forms Of Tobacco Or Nicotine? No [email or web address] Information not available 05/21/2023 Sex: Female Functional [...] a brain bleed, ended up with a [place] filter. Brother - Agent orange exposure SISTER [...] preservative free, adsorbed 11/03/2018 completed Not Available [facility] 01/15/2023 04:53:39 Tdap 04/12/2007 completed Not Available [facility] 04:53:39 zoster live 06/16/2012 completed Not Available [facility] 01/15/2023 04:53:40 Pneumococcal conjugate PCV 13 09/17/2015 completed Not Available [facility] 01/15/2023 04:53:40 Influenza, high-dose, trivalent, PF 11/26/2017 completed Not Available [facility] 01/15/2023 04:53:41 Td(adult) unspecified formulation 09/30/1992 completed Not Available [facility] 01/15/2023 04:53:41 Influenza, split virus, trivalent, preservative 11/28/2015 completed Not Available [facility] 01/15/2023 04:53:41 Influenza, split virus, trivalent, preservative 01/04/2015 completed Not Available [facility] 01/15/2023 04:53:41 Influenza, split virus, quadrivalent, PF 12/21/2018 completed Not Available [facility] 01/15/2023 04:53:41 zoster recombinant 08/30/2018 completed Not Available [facility] 01/15/2023 04:53:42 zoster recombinant 01/26/2018 completed Not Available [facility] 01/15/2023 04:53:42 Influenza, high-dose, quadrivalent, PF 12/04/2020 completed Not Available [facility] 01/15/2023 04:53:43 Influenza, high-dose, quadrivalent, PF 12/11/2019 completed Not Available [facility] 01/15/2023 04:53:43 Influenza, high-dose, quadrivalent, PF 12/29/2021 completed Not Available [facility] 01/15/2023 04:53:43 COVID-19, mRNA, LNP-S, PF, 100 mcg/0.5mL dose or 50 mcg/0.25mL dose 07/09/2021 completed Not Available [facility] 01/15/2023 04:53:43 COVID-19 vaccine, vector-nr, rS-Ad26, PF, 0.5 mL 05/02/2020 completed Not Available [facility] 01/15/2023 04:53:44 SARS-COV-2 (COVID-19) vaccine, UNSPECIFIED 05/31/2020 completed Not Available [facility] 01/15/2023 04:53:44 SARS-COV-2 (COVID-19) vaccine, UNSPECIFIED 01/03/2021 completed Not Available [facility] 01/15/2023 04:53:44 pneumococcal polysaccharide PPV23 07/05/2014 completed Not Available [facility] 2022 04:53:45 Hep B, unspecified formulation 04/14/1993 completed Not Available [facility] 01/15/2023 04:53:45 Hep B, unspecified formulation 09/30/1992 completed Not Available [facility] 01/15/2023 04:53:46 Hep B, unspecified formulation 10/31/1992 completed Not Available [facility] 01/15/2023 04:53:46 influenza, unspecified formulation 12/11/2009 completed Not Available [facility] 01/15/2023 04:53:47 influenza, unspecified formulation 12/13/2012 completed Not Available [facility] 01/15/2023 04:53:47 influenza, unspecified formulation 12/18/2008 completed Not Available [facility] 01/15/2023 04:53:47 influenza, unspecified formulation 12/19/2010 completed Not Available [facility] 01/15/2023 04:53:47 influenza, unspecified formulation 12/30/2006 completed Not Available [facility] 01/15/2023 04:53:48 influenza, unspecified formulation 01/09/2014 completed Not Available [facility] 01/15/2023 04:53:48 influenza, unspecified formulation 01/26/2008 completed Not Available [facility] 01/15/2023 04:53:48 influenza, unspecified formulation 02/16/2012 completed Not Available [facility] 01/15/2023 04:53:48 Influenza, high-dose, quadrivalent, PF 12/17/2022 completed Not Available [facility] 03/19/2023 05:33:03 COVID-19, mRNA, LNP-S, PF, herminio-sucrose, 30 mcg/0.3 mL 12/28/2022 completed Not Available [facility] 03/19/2023 05:33:03 Past Encounters Encounter ID Performer Location Encounter Start Date Encounter Closed Date Diagnosis/Indication Diagnosis SNOMED-CT Code Diagnosis ICD10 Code [id number] [address],[facility] [place] [address] 09/01/2023 10:23:16 09/01/2023 13:28:10 Vertigo [id number] R42 Impacted c erumen of bilateral ears [id number] H61.23 Health Concerns Section Related Observation LastModified by Organization Detai ls LastModified Time None Recorded Concern Status LastModified by Organization Details LastModified Time None Recorded Payers Encounter Date Sequence Insurance Name Policy Number Policy Lema Covered Member ID Lema Member ID Guarantor Name 09/01/2023 1 [id number] ([place]/ [place]ANTAGE - PPO) [id number] Luna Mott [id number] Luna Mott Notes Date Note Type [...] the name of it. [address], [place], [address], [facility]. 09/01/2023 13:55:07 OBGyn Episode No OBEpisode recorded.
--- OUTSIDE RECORDS SUMMARY | 2023-11-10 11:48 | XMS_ITS | Encounter Summary ---
Author Organization [facility] Address [address] [place] [address] Care Team Providers Care Presentation Team Member Name Role Phone Lolly Oliveira MD Primary Care Provider Encounter Details Date Type Department Care Team (Late st Contact Info) Description 05/27/2021 Lab Requisition [facility] Pathology & Laboratory Medicine - [address] [address] Iman Moran, DO [address] Fowler [address] [place], [place] [id number] Encounter for other general examination Social History [...] management options, if applicable. 05/30/2021 13:31 EDT [facility] Final Diagnosis A. COLON, POLYP AT 90 CM, BIOPSY/POLYPECTOM Y: - Tubular adenoma. 05/30/2021 13:31 [facility] Attestation By the signature below, the attending physician certifies that they have 1) personally conducted a gross and/or microscopic examination of the described specimen(s), and/or personally interpreted the results of laboratory testing of the described specimen(s), and 2) personally rendered or confirmed the above diagnosis. 05/30/2021 13:31 [facility] at 1331 Clinical History Severe diverticula and polypectomy x1 05/30/2021 13:31 [facility] Gross Description A. Received in formalin labelled with proper patient identification (initials J, K) and colon polyp x1 at 90 cm is a light pineda polypoid tissue measuring 0.2 x 0.2 x 0.2 cm. Submitted intact in A1. MICKEY CARLOS(ASCP) 05/27/2021 19:11 05/30/2021 13:31 [facility] Performing Lab [facility] 05/30/2021 13:31 [facility] Scanned Images 05/30/2021 13:31 [facility] Tissue ENTIRE COLON / Unknown 05/27/2021 11:23 EDT 05/27/2021 16:33 EDT Iman Moran DO PATHOLOGY ORDERABLES [facility] [address] [place] [address] documented in this encounter Visit Diagnoses Diagnosis Encounter for other general examination documented in this encounter Care Teams Presentation Team Member Relationship Specialty Start Date End Date Lolly Oliveira MD [address] [place] [address] PCP - General 11/13/08 documented as of this encounter
--- OUTSIDE RECORDS SUMMARY | 2023-11-10 11:48 | XMS_ITS | Encounter Summary ---
Author Organization [facility] Address [address] [place] [address] Care Team Providers Care Digital Field Service Technician Name Role Phone Lolly Oliveira MD Primary Care Provider [phone] Encounter Details Date Type Department Care Team (Late st Contact Info) Description 05/02/2004 Results Only [facility] [address] [place] [address] Lolly Oliveira MD [address] [place], [place] [id number] Social History Tobacco Use Types Packs/Day Years [...] 68. [facility] Report Status Final [id number] [facility] 05/02/2004 9:32 EST 05/10/2004 9:32 EST Lolly Oliveira MD MICROBIOLOGY - GENER AL ORDERABLES [facility] [address] [place] [address] * CYTOPATHOLOGY (05/02/2004 0:00 EST) Pathology Report: CYTOPATHOLOGY REPORT Reports generated via electronic interface contain original data; however they are lacking the format of the original report. Caution should be taken when reading/interpreti ng unformatted reports. Name: ? JING ALVARENGA ? Accession #: ? [id number] : ? 1950 (Age: 53) ??F ?Collect [...] Document reviewed and electronically signed by: ? BERHAEN Berrios(ASCP) ? Report Date: ??05/09/2004 13:30 End of Report [facility] 05/02/2004 05/06/2004 Lolly Oliveira MD PATHOLOGY ORDERABLES Performing Organization Address City/State/[facility] Co de Phone Number [facility] [address] [place] [address] documented in this encounter Visit Diagnoses Not on filedocumented in this encounter Care Teams Digital Field Service Technician Relationship Specialty Start Date End Date Lolly Oliveira MD [address] [place] [address] PCP - General 11/13/08 documented as of this encounter
--- OUTSIDE RECORDS SUMMARY | 2023-11-10 11:48 | XMS_ITS | Encounter Summary ---
Author Organization [facility] Address [address] [place] [address] Care Team Providers Care Inbound Ingredient Logistics Specialist Name Role Phone Lolly Oliveira MD Primary Care Provider [phone] Encounter Details Date Type Department Care Team (Late st Contact Info) Description 02/20/2020 Lab Requisition [facility] Pathology & Laboratory Medicine - [address] [id number] Outr Resulting Lab, Provider Social History Tobacco [...] in accordance with CLIA regulations, College of [employer] (CAP) guidelines (May 25, 2019), and FDA guidance (May 06, 2019). This test is only for use under the Food and Drug Administration's Emergency Use Authorization. Swab ENTIRE NASOPHARYNX / Unknown 02/19/2020 16:30 EST 02/20/2020 16:09 EST Provider Outr Resulting Lab MICROBIOLOGY - GENERAL ORDERABLES [facility] [place] * COVID-19 TESTING (02/19/2020 16:30 EST) COVID-19 rt-PCR Result NEGATIVE Negative 02/22/2020 23:41 EST [facility] Comment: 2019-novel Coronavirus (2019-nCoV) not [...] in accordance with CLIA regulations, College of [employer] Pathologists (CAP) guidelines (May 25, 2019), and FDA guidance (May 06, 2019). This test is only for use under the Food and Drug Administration's Emergency Use Authorization. Performing Lab [facility] 02/22/2020 23:41 EST [facility] Swab 02/19/2020 16:3 0 EST 02/20/2020 16:09 EST Provider Outr Resulting Lab MICROBIOLOGY - GENERAL ORDERABLES [facility] [address] [place] [address] [facility] [place] documented in this encounter Visit Diagnoses Not on filedocumented in this encounter Care Teams Inbound Ingredient Logistics Specialist Relationship Specialty Start Date End Date Lolly Oliveira MD [address] [place] [address] PCP - General 11/13/08 documented as of this encounter
--- OUTSIDE RECORDS SUMMARY | 2023-11-10 11:48 | XMS_ITS | Encounter Summary ---
Author Organization [facility] Address [address] [place] [address] Care Team Providers Care Director Client Services Name Role Phone Lolly Oliveira MD Primary Care Provider [phone] Encounter Details Date Type Department Care Team (Late st Contact Info) Description 04/01/2005 Results Only [facility] [address] [place] [address] Blair Dukes MD [address] [place] [id number] Social History Tobacco Use Types Packs/Day Years [...] ? JING ALVARENGA ? Accession #: ? [id number] ? : ? 1950 (Age: 54) ??F [...] cm tissue, submitted intact as (B). ??(Dr. Lechuga)/[facility] End of Report [facility] 04/01/2005 04/02/2005 15: 24 EST Blair Dukes MD PATHOLOGY ORDERABLES [facility] [address] [place] [address] documented in this encounter Visit Diagnoses Not on filedocumented in this encounter Care Teams Director Client Services Relationship Specialty Start Date End Date Lolly Oliveira MD [address] [place] [address] PCP - General 11/13/08 documented as of this encounter
--- OUTSIDE RECORDS SUMMARY | 2023-11-10 11:49 | XMS_ITS | Encounter Summary ---
Author Organization [facility] [place] [address] Care Team Providers Care Belly Dump Driver Name Role Phone Lolly Oliveira MD Primary Care Provider [phone] Encounter Details Date Type Department Care Team (Late st Contact Info) Description 03/15/2023 Telephone Cardiology at [address] [phone] Saranya Ma Social History Tobacco Use Types Packs/Day Years Used Date Smoking Tobacco: Never Alcohol Use Standard Drinks/Week Comments Not Currently 0 (1 standard drink = 0.6 oz pur e alcohol) [facility] Inpatient Questions Answer Date Recorded [...] her to have an echo done at [facility] prior to her appt withvam there on 05/12/23. Message sent to Dr. Mcmahon asking him to put order in if he would like her to have this done. Saranya Ma Sr. Clinical Procedure Dealer Account Manager/Professor Of Criminal Justice documented in this encounter Plan of Treatment Upcoming Encounters Date Type Department Care Team (Late st Contact Info) Description 01/16/2024 10:00 AM EST Hospital Encounter [place] [address] Arrived documented as of this encounter Visit Diagnoses Not on filedocumented in this encounter Care Teams Belly Dump Driver Relationship Specialty Start Date End Date Lolly Oliveira MD [address] [place] [address] PCP - General 07/17/13 documented as of this encounter
--- OUTSIDE RECORDS SUMMARY | 2023-11-10 11:49 | XMS_ITS | Encounter Summary ---
[place] [address] Care Team Providers Care Restaurant Managing Partner Name Role Phone Lolly Oliveira MD Primary Care Provider [phone] Encounter Details Date Type Department Care Team (Latest Contact Info) Description 07/26/2013 9:45 AM EDT - 07/26/2013 11:59 PM EDT Hospital En[place] [address] Mammographic microcalcification Social History Tobacco Use Types [...] EST Hospital Encounter Non-Invasive [place] [address] Arrived documented as of this encounter Procedures Procedure Name Priority Date/Time Associated Diagnosis Comments SURGICAL PATHOLOGY REPORT Routine 07/26/2013 12:12 PM EDT MAMMO SPECIMEN IMAGING DURING BIOPSY Routine 07/26/2013 11:58 AM EDT Mammographic microcalcification documented in this encounter Results * Surgical Pathology Report (07/26/2013 12:12 PM EDT) Final Diagnosis ? [facility] ? Provider: ?? ELENO CHRISTIAN ?? Pt. Name: ?? JING ALVARENGA ? Acc #: ?[id number] ?Pt. ? Col Date: ?? 07/26/2013 ? [...] Partially fragmented, fibrofatty needle core biopsies. ? [facility] ? Provider: ?? ELENO CHRISTIAN ?? Pt. Name: ?? JING ALVARENGA ? Acc #: ?[id number] ?Pt. ? Col Date: ?? 07/26/2013 ? [...] MD PATHOLOGY/CYTOLOGY O RDERABLES Performing Organization Address City/State/[facility] Co va Phone Number [facility] [place] [address] * Mammo Specimen Imaging During Biopsy (07/26/2013 [...] microcalcification documented in this encounter Care Teams Restaurant Managing Partner Relationship Specialty Start Date End Date Lolly Oliveira MD [address] [place] [address] PCP - General 07/17/13 documented as of this encounter
--- OUTSIDE RECORDS SUMMARY | 2023-11-10 11:49 | XMS_ITS | Encounter Summary ---
Author Organization [facility] [place] [address] Care Team Providers Care Onsite Health Coach Name Role Phone Lolly Oliveira MD Primary Care Provider [phone] Encounter Details Date Type Department Care Team (Late st Contact Info) Description 04/01/2021 3:30 PM EST Office Visit Dermatology at [address] [phone] Clay Ramírez MD [address], [place] [address] Psoriasis, guttate Social History Tobacco Use Types [...] AM EST Hospital Encounter Non-[place] [address] Arrived documented as of this encounter Visit Diagnoses Diagnosis Psoriasis, guttate Other psoriasis documented in this encounter Care Teams Onsite Health Coach Relationship Specialty Start Date End Date Lolly Oliveira MD [address] [place] [address] PCP - General 07/17/13 documented as of this encounter
--- OUTSIDE RECORDS SUMMARY | 2023-11-10 11:49 | XMS_ITS | Encounter Summary ---
Author Organization [facility] [place] [address] Care Team Providers Care Payloader Operator Name Role Phone Lolly Oliveira MD Primary Care Provider [phone] Encounter Details Date Type Department Care Team (Late st Contact Info) Description 05/18/2023 Refill Dermatology at [address] [address] Nora Meredith LPN Social History [...] patient. She voiced understanding. Order sent to [facility] drug. documented in this encounter Plan of Treatment Upcoming Encounters Date Type Department Care Team (Late st Contact Info) Description 01/16/2024 10:00 AM EST Hospital Encounter Non-[place] [address] Arrived documented as of this encounter Visit Diagnoses Not on filedocumented in this encounter Care Teams Payloader Operator Relationship Specialty Start Date End Date Lolly Oliveira MD [address] [place] [address] PCP - General 07/17/13 documented as of this encounter
--- OUTSIDE RECORDS SUMMARY | 2023-11-10 11:49 | XMS_ITS | Encounter Summary ---
Author Organization [facility] Address [facility] [place] [address] Care Team Providers Care Ultrasound Spec Name Role Phone Lolly Oliveira MD Primary Care Provider [phone] Encounter Details Date Type Department Care Team (Late st Contact Info) Description 01/29/2023 Notes Only Cardiology at [address] [address] Merle Lin PA [facility] [place] [address] Social History Tobacco Use Types Packs/Day Years Used Date Smoking Tobacco: Never Alcohol Use Standard Drinks/Week Comments Not Currently 0 (1 standard drink = 0.6 oz pur e alcohol) [facility] Inpatient Questions Answer Date Recorded Does [...] pdf document Date of transmission: 01/29/2023 Device separations scientist: BSI Device type: CONDITIONING YARD SUPERVISOR-D Presenting rhythm: /RVP/LVP AP 21% Right CHILDREN'S SERVICE WORKER 100% Left CHILDREN'S SERVICE WORKER: 100% Battery: 10.5 years Heart[employer]ic Index rising in setting of increasing S3 intensity, increasing respiratory rate, increasing night heart rate, and increasing mean heart rate. MICKEY Villa 01/29/2023 9:06 AM documented in this encounter Plan of Treatment Upcoming Encounters Date Type Department Care Team (Late st Contact Info) Description 01/16/2024 10:00 AM EST Hospital Encounter Non-Invasive [place] [address] Arrived documented as of this encounter Visit Diagnoses Not on filedocumented in this encounter Care Teams Ultrasound Spec Relationship Specialty Start Date End Date Lolly Oliveira MD [address] [place] [address] PCP - General 07/17/13 documented as of this encounter
--- OUTSIDE RECORDS SUMMARY | 2023-11-10 11:49 | XMS_ITS | Encounter Summary ---
Author Organization [facility] Address [facility] [place] [address] Care Team Providers Care Produce Runner Name Role Phone Lolly Oliveira MD Primary Care Provider [phone] Encounter Details Date Type Department Care Team (Late st Contact Info) Description 07/16/2022 Telephone Cardiology at [address] [phone] Lalit Mcmahon MD [facility] [place] [address] Social History Tobacco Use Types Packs/Day Years [...] her nonischemic cardiomyopathy. She is scheduled for BENEFITS COORDINATOR-D implantation next week and looks forward to the procedure. We will see each other next week. Lalit Mcmahon MD [facility] Cardiac Electrophysiology 07/16/2022 8:52 AM documented in this encounter Plan of Treatment Upcoming Encounters Date Type Department Care Team (Late st Contact Info) Description 01/16/2024 10:00 AM EST Hospital Encounter Non-Invasive [place] [address] Arrived documented as of this encounter Visit Diagnoses Not on filedocumented in this encounter Care Teams Produce Runner Relationship Specialty Start Date End Date Lolly Oliveira MD [address] [place] [address] PCP - General 07/17/13 documented as of this encounter
--- OUTSIDE RECORDS SUMMARY | 2023-11-10 11:49 | XMS_ITS | Encounter Summary ---
Author Organization [facility] [place] [address] Care Team Providers Care Business Area Manager Name Role Phone Lolly Oliveira MD Primary Care Provider [phone] Encounter Details Date Type Department Care Team (Late st Contact Info) Description 11/16/2022 Telephone Cardiology at [address] [phone] Luna Rousseau, RN Social History Tobacco Use Types Packs/Day Years Used Date Smoking Tobacco: Never Alcohol Use Standard Drinks/Week Comments Not Currently 0 (1 standard drink = 0.6 oz pur e alcohol) [facility] Inpatient Questions Answer Date Recorded [...] was 118/57 at [facility] at [facility]. Pt is going twice a week [...] [facility] Encounter Non[place] [phone] Arrived documented as of this encounter Visit Diagnoses Not on filedocumented in this encounter Care Teams Business Area Manager Relationship Specialty Start Date End Date Lolly Oliveira MD [address] [place] [address] PCP - General 07/17/13 documented as of this encounter
--- OUTSIDE RECORDS SUMMARY | 2023-11-10 11:49 | XMS_ITS | Encounter Summary ---
Author Organization [facility] [place] [address] Care Team Providers Care Poacher Wringer Operator Name Role Phone Lolly Oliveira MD Primary Care Provider [phone] Reason for Visit * Reason Onset Date Comments Pre Procedure Call 07/01/2022 Encounter Details Date Type Department Care Team (Late st Contact Info) Description 07/01/2022 Telephone Cardiology at [address] [phone] Rosenda Sutton RN Pre Procedure Call Social History Tobacco Use Types Packs/Day Years Used Date Smoking Tobacco: Never Sex and Gender Information Value Date Recorded Sex Assigned at Not on file Gender Identity Not on file Sexual Orientation Not on file documented as of this encounter Miscellaneous Notes * Telephone Encounter - Rosenda Sutton RN - 07/01/2022 9:30 AM EDTSummary: Pre Procedure Call: LEAD FIRE PROTECTION ENGINEER implant EP ETHERNET NETWORK ARCHITECT COORDINATION CHECKLIST Patient Name: Luna Mott Patient Performing Director Retail Brand Development: Lalit Mcmahon Referring Provider: Lolly Oliveira Date of Procedure: 07/23/22 Arrival Time/ Case Time: 12:00 pm / 1:00 pm Check In Location: Stable Manager Desk 4W Date Patient was Called: 07/01/22 Procedure: LEAD FIRE PROTECTION ENGINEER Company: [employer] Type: LEAD FIRE PROTECTION ENGINEER-D Laterality: LEFT Orders: Yes Lab Orders: Yes [...] overnight , understands that they will need newspaper delivery driver on day of discharge Notified pt that Goff catheter may be placed on day of procedure depending on type & duration of case. documented in this encounter Plan of Treatment Upcoming Encounters Date Type Department Care Team (Late st Contact Info) Description 01/16/2024 10:00 AM [facility] Hospital Encounter Non-Invasive [place] [address] Arrived documented as of this encounter Visit Diagnoses Not on filedocumented in this encounter Care Teams Poacher Wringer Operator Relationship Specialty Start Date End Date Lolly Oliviera MD [address] [place] [address] PCP - General 07/17/13 documented as of this encounter
--- OUTSIDE RECORDS SUMMARY | 2023-11-10 11:49 | XMS_ITS | Encounter Summary ---
Author Organization [facility] [place] [address] Care Team Providers Care Glass Calibrator Name Role Phone Lolly Oliveira MD Primary Care Provider [phone] Reason for Visit * Diagnostic Test (Routine) - Closed Specialty Diagnoses / Procedures Referred By Contac t Referred To Contact Radiology Diagnoses Left bundle branch block Nonischemic cardiomyopathy Procedures MRI Cardiac Morphology Function With Flow Velocity Quantification wwo Contrast MRI Cardiac Morphology Function wwo Contrast Lalit Mcmahon MD [facility] [place] [address] [facility] [place] [address] Referral ID Status Reason Start Date Expiration Date V isits Requested Visits Authorized [id number] Closed Specialty Service Requested 05/06/2022 11/07/2023 2 1 Encounter Details Date Type Department Care Team (Latest Contact Info) Description 07/14/2022 9:09 AM EDT - 07/14/2022 11:59 PM EDT Hospital [place] [address] Lalit Mcmahon MD [facility] [place] [address] Discharge Disposition: Home Social History Tobacco Use [...] with spacer fluticasone propionate (Flonase) 50 mcg/actuation [place], Suspension 1 spray by Each Nare route [...] AM EST Hospital Encounter Non-[place] [address] Arrived documented as of this [...] mLs documented in this encounter Care Teams Glass Calibrator Relationship Specialty Start Date End Date Lolly Oliveira MD [address] [place] [address] PCP - General 07/17/13 documented as of this encounter
--- OUTSIDE RECORDS SUMMARY | 2023-11-10 11:49 | XMS_ITS | Encounter Summary ---
Author Organization [facility] Address [facility] [place] [address] Care Team Providers Care Hypo Dipper Name Role Phone Lolly Oliveira MD Primary Care Provider [phone] Encounter Details Date Type Department Care Team (Late st Contact Info) Description 11/11/2022 Orders Only Cardiology at [address] [phone] Lalit Mcmahon MD [facility] [place] [address] Nonischemic cardiomyopathy Social History Tobacco Use Types [...] AM [facility] Encounter Non-Invasive [place] [phone] Arrived documented as of this encounter Visit Diagnoses Diagnosis Nonischemic cardiomyopathy Other primary cardiomyopathies documented in this encounter Care Teams Hypo Dipper Relationship Specialty Start Date End Date Berrian, Lolly M, MD [address] [place] [address] PCP - General 07/17/13 documented as of this encounter
--- OUTSIDE RECORDS SUMMARY | 2023-11-10 11:49 | XMS_ITS | Encounter Summary ---
Author Organization [facility] [place] [address] Care Team Providers Care Manager Surgical Name Role Phone Lolly Oliveira MD Primary Care Provider [phone] Reason for Visit * Reason Comments Follow-up Encounter Details Date Type Department Care Team (Late st Contact Info) Description 05/21/2022 8:00 AM EDT Office Visit Dermatology at [address] [phone] Clay Ramírez MD [address] [facility], [place] [address] Psoriasis, guttate Social History Tobacco Use Types [...] [facility] Hospital Encounter [place] [address] Arrived documented as of this encounter Visit Diagnoses Diagnosis Psoriasis, guttate Other psoriasis documented in this encounter Care Teams Manager Surgical Relationship Specialty Start Date End Date Lolly Oliveira MD [address] [place] [address] PCP - General 07/17/13 documented as of this encounter
--- OUTSIDE RECORDS SUMMARY | 2023-11-10 11:49 | XMS_ITS | Encounter Summary ---
Author Organization [facility] Address [facility] [place] [address] Care Team Providers Care Biomedical Scientist Name Role Phone Lolly Oliveira MD Primary Care Provider [phone] Reason for Referral * Diagnostic Test (Routine) - Closed Specialty Diagnoses / Procedures Referred By Contkoki t Referred To Contact Cardiology Diagnoses Nonischemic cardiomyopathy Biventricular ICD (implantable cardioverter-defibrillator) in place Procedures Echocardiogram Transthoracic Lalit Mcmahon MD [facility] [place] [address] Referral ID Status Reason Start Date Expiration Date V isits Requested Visits Authorized [id number] Closed Specialty Service Requested 03/15/2023 09/11/2023 1 1 Encounter Details Date Type Department Care Team (Late st Contact Info) Description 03/15/2023 Orders Only Cardiology at [address] [address] Lalit Mcmahon MD [facility] [place] [address] Nonischemic cardiomyopathy; Biventricular ICD (implantable cardioverter-defibrill ator) in place Social History Tobacco Use Types Packs/Day Years Used Date Smoking Tobacco: Never Alcohol Use Standard Drinks/Week Comments Not Currently 0 (1 standard drink = 0.6 oz pur e alcohol) [facility] Inpatient Questions Answer Date Recorded [...] EST Hospital Encounter Non-Invasive [place] [address] Arrived Scheduled Orders Name Type Priority Associated Diagnoses Order Schedule Echocardiogram Transthoracic Echocardiography Routine Nonischemic cardiomyopathy Biventricular ICD (implantable cardioverter-defibr illator) in place Expected: 05/05/2023, Expires: 11/04/2023 documented as of this encounter Visit Diagnoses Diagnosis Nonischemic cardiomyopathy Other primary cardiomyopathies Biventricular ICD (implantable cardioverter-defibrillator) in place documented in this encounter Care Teams Biomedical Scientist Relationship Specialty Start Date End Date Lolly Oliveira MD [address] [place] [address] PCP - General 07/17/13 documented as of this encounter
--- OUTSIDE RECORDS SUMMARY | 2023-11-10 11:49 | XMS_ITS | Encounter Summary ---
Author Organization [facility] [place] [address] Care Team Providers Care Sterile Process Tech Name Role Phone Lolly Oliveira MD Primary Care Provider [phone] Encounter Details Date Type Department Care Team (Late st Contact Info) Description 07/26/2013 Orders [place] [phone] Eleno Christian MD [facility] [place] [address] Social History Tobacco Use Types Packs/Day Years [...] AM EST Hospital Encounter [place] [address] Arrived documented as of this encounter Visit Diagnoses Not on filedocumented in this encounter Care Teams Sterile Process Tech Relationship Specialty Start Date End Date Lolly Oliveira MD [address] [place] [address] PCP - General 07/17/13 documented as of this encounter
--- OUTSIDE RECORDS SUMMARY | 2023-11-10 11:49 | XMS_ITS | Encounter Summary ---
Author Organization [facility] [place] [address] Care Team Providers Care Program Engineer Name Role Phone Lolly Oliveira MD Primary Care Provider [phone] Encounter Details Date Type Department Care Team [...] EST Hospital Encounter Non-Invasive [place] [address] Arrived documented as of this encounter Visit Diagnoses Not on filedocumented in this encounter Care Teams Program Engineer Relationship Specialty Start Date End Date Lolly Oliveira MD [address] [place] [address] PCP - General 07/17/13 documented as of this encounter
--- OUTSIDE RECORDS SUMMARY | 2023-11-10 11:49 | XMS_ITS | Encounter Summary ---
[place] [address] Care Team Providers Care Seo Marketing Specialist Name Role Phone Lolly Oliveira MD Primary Care Provider [phone] Encounter Details Date Type Department Care Team (Late st Contact Info) Description 04/09/2022 Refill Dermatology at [address] [address] Nora Meredith, [place] Social History Tobacco Use Types Packs/Day Years [...] [facility] Hospital Encounter Non-Invasive [place] [address] Arrived documented as of this encounter Visit Diagnoses Not on filedocumented in this encounter Care Teams Seo Marketing Specialist Relationship Specialty Start Date End Date Lolly Oliveira MD [address] [place] [address] PCP - General 07/17/13 documented as of this encounter
--- OUTSIDE RECORDS SUMMARY | 2023-11-10 11:49 | XMS_ITS | Encounter Summary ---
Author Organization [facility] [place] [address] Care Team Providers Care Owner Operator Tanker Truck Driver Name Role Phone Lolly Oliveira MD Primary Care Provider [phone] Encounter Details Date Type Department Care Team (Late st Contact Info) Description 03/17/2023 Telephone Cardiology at [address] [phone] Saranya Ma Social History Tobacco Use Types Packs/Day Years Used Date Smoking Tobacco: Never Alcohol Use Standard Drinks/Week Comments Not Currently 0 (1 standard drink = 0.6 oz pur e alcohol) [facility] Inpatient Questions Answer Date Recorded [...] 9:43 AM EST Echo order faxed to [facility] at [phone]. No Prior auth needed. Ref #:[id number]. Saranya Ma Sr. Clinical Procedure [place]/Funeral Planner documented in this encounter Plan of Treatment Upcoming Encounters Date Type Department Care Team (Late st Contact Info) Description 01/16/2024 10:00 AM [facility] Hospital Encounter Non-Invasive [place] [address] Arrived documented as of this encounter Visit Diagnoses Not on filedocumented in this encounter Care Teams Owner Operator Tanker Truck Driver Relationship Specialty Start Date End Date Lolly Oliveira MD [address] [place] [address] PCP - General 07/17/13 documented as of this encounter
--- OUTSIDE RECORDS SUMMARY | 2023-11-10 11:49 | XMS_ITS | Encounter Summary ---
Author Organization [facility] [place] [address] Care Team Providers Care Tractor Driver Teamster Name Role Phone Lolly Oliveira MD Primary Care Provider [phone] Encounter Details Date Type Department Care Team (Late st Contact Info) Description 10/09/2021 Telephone Dermatology at [address] [address] Nora Meredith LPN Social History [...] st Contact Info) Description 01/16/2024 10:00 AM [facility] Hospital Encounter Non[place] [address] Arrived documented as of this encounter Visit Diagnoses Not on filedocumented in this encounter Care Teams Tractor Driver Teamster Relationship Specialty Start Date End Date Lolly Oliveira MD [address] [place] [address] PCP - General 07/17/13 documented as of this encounter
--- OUTSIDE RECORDS SUMMARY | 2023-11-10 11:49 | XMS_ITS | Encounter Summary ---
Author Organization [facility] [address] Care Team Providers Care Optical Goods Worker Name Role Phone Lolly Oliveira MD Primary Care Provider [phone] Reason for Visit * Reason Onset Date Comments Post Procedure Call 07/30/2022 Encounter Details Date Type Department Care Team (Late st Contact Info) Description 07/30/2022 Notes Only Cardiology at [address] [phone] Rosenda Sutton, RN Post Procedure Call Social History Tobacco Use Types Packs/Day Years Used Date Smoking Tobacco: Never Alcohol Use Standard Drinks/Week Comments Not Currently 0 (1 standard drink = 0.6 oz pur e alcohol) [facility] Inpatient Questions Answer Date Recorded Does Anyone [...] 07/30/2022 9:59 AM EDTSummary: Post Procedure Call: AWNING MAKER AND INSTALLER implant EP RN Post-Procedure Note: Date of Follow Up Call: 07/30/2022 Spoke With: Patient Procedure Type (choose all that apply): ICD Performing MIRLANDE Mcmahon Date of Procedure: 07/23/2022 Date of Discharge: 07/24/2022 Follow Up EP Visit Scheduled?: No No Follow Up Visit Reason: Follow up outside Outside Location: [facility] Date of Non EP Visit: 08/12/2022 [...] Note: Follow-up Recommendations for Providers: - s/p AWNING MAKER AND INSTALLER-D implant - post implant QRS 130 ms [...] [facility] Encounter Non-Invasive [place] [address] Arrived documented as of this encounter Visit Diagnoses Not on filedocumented in this encounter Care Teams Optical Goods Worker Relationship Specialty Start Date End Date Lolly Oliveira MD [address] [place] [address] PCP - General 07/17/13 documented as of this encounter
--- OUTSIDE RECORDS SUMMARY | 2023-11-10 11:49 | XMS_ITS | Encounter Summary ---
Author Organization [facility] [place] [address] Care Team Providers Care Journeyman Press Operator Name Role Phone Lolly Oliveira MD Primary Care Provider [phone] Reason for Referral * Consultation (Routine) - Closed Specialty Diagnoses / Procedures Referred By Contact Referred To Contact Electrophysiology / Cardiology Diagnoses Left bundle branch block Cardiomyopathy, unspecified type AT MINIMUM PT NEEDS CONSIDERATION FOR DEFIBRILLATOR, ALSO CANDIDATE FOR RESYNCHRONIZATION THERAPY HER QRS IS >0.16 Lolly Oliveira MD [address] [place] [address] [facility] Cardiology [address] [place] [phone] Referral ID Status Reason Start Date Expiration Date V isits Requested Visits Authorized [id number] Closed Consult, Test & Treat PCP Updated and/or Approved 04/30/2022 04/30/2023 6 6 Encounter Details Date Type Department Care Team (Latest Contact Info) Description 04/30/2022 Transcribe Orders eDH Incoming Referrals [phone] Lolly Oliveira MD [address] [place], [place] [id number] Left bundle branch block; Cardiomyopathy, unspecified type [...] EST Hospital Encounter Non-Invasive [place] [address] Arrived Scheduled Referrals Name Type Priority Associated Diagnoses Orde r Schedule Referral to Cardiology Outpatient Referral Routine Left bundle branch block Cardiomyopathy, Unspecified Type Ordered: 04/30/2022 documented as of this encounter Visit Diagnoses Diagnosis Left bundle branch block Other left bundle branch block Cardiomyopathy, unspecified type documented in this encounter Care Teams Journeyman Press Operator Relationship Specialty Start Date End Date Lolly Oliveira MD [address] [place] [address] PCP - General 07/17/13 documented as of this encounter
--- OUTSIDE RECORDS SUMMARY | 2023-11-10 11:49 | XMS_ITS | Encounter Summary ---
Author Organization [facility] [place] [address] Care Team Providers Care Medical Device Sales Name Role Phone Lolly Oliveira MD Primary Care Provider [phone] Reason for Visit * Reason Onset Date Comments Other 07/24/2022 Implanted Cardia c Device Teaching/Education Encounter Details Date Type Department Care Team (Late st Contact Info) Description 07/24/2022 Notes Only Cardiology at [address] [phone] Letha Arroyo Other (Implanted Cardiac Device Teaching/Education) Social History Tobacco Use Types Packs/Day Years Used Date Smoking Tobacco: Never Alcohol Use Standard Drinks/Week Comments Not Currently 0 (1 standard drink = 0.6 oz pur e alcohol) [facility] Inpatient Questions Answer Date Recorded Does [...] to call the Cardiac Device Clinic at [phone] with any questions. Plan: Post op check: [...] [facility] Hospital Encounter Non-Invasive [place] [address] Arrived documented as of this encounter Visit Diagnoses Not on filedocumented in this encounter Care Teams Medical Device Sales Relationship Specialty Start Date End Date Lolly Oliveira MD [address] [place] [address] PCP - General 07/17/13 documented as of this encounter
--- OUTSIDE RECORDS SUMMARY | 2023-11-10 11:49 | XMS_ITS | Encounter Summary ---
Author Organization [facility] [place] [address] Care Team Providers Care Test Eng Name Role Phone Lolly Oliveira MD Primary Care Provider [phone] Encounter Details Date Type Department Care Team (Latest Contact Info) Description 10/23/2022 10:00 AM EDT - 10/23/2022 11:59 PM EDT Hospital Encounter [place] [address] Discharge Disposition: Home Social History Tobacco Use [...] with spacer fluticasone propionate (Flonase) 50 mcg/actuation [place], Suspension 1 spray by Each Nare route [...] [facility] Hospital Encounter [place] [address] Arrived documented as of this [...] filedocumented in this encounter Care Teams Test Eng Relationship Specialty Start Date End Date Lolly Oliveira MD [address] [place] [address] PCP - General 07/17/13 documented as of this encounter
--- OUTSIDE RECORDS SUMMARY | 2023-11-10 11:49 | XMS_ITS | Encounter Summary ---
Author Organization [facility] [place] [address] Care Team Providers Care Marketing Services Rep Name Role Phone Lolly Oliveira MD Primary Care Provider [phone] Reason for Visit * Reason Comments Follow-up Encounter Details Date Type Department Care Team (Late st Contact Info) Description 06/06/2021 8:45 AM EDT Office Visit Dermatology at [address] [address] Clay Ramírez MD [address] [facility], [place] [address] Psoriasis, guttate Social History Tobacco Use Types [...] [facility] Hospital Encounter Non-[place] [phone] Arrived documented as of this encounter Visit Diagnoses Diagnosis Psoriasis, guttate Other psoriasis documented in this encounter Care Teams Marketing Services Rep Relationship Specialty Start Date End Date Lolly Oliveira MD [address] [place] [address] PCP - General 07/17/13 documented as of this encounter
--- OUTSIDE RECORDS SUMMARY | 2023-11-10 11:49 | XMS_ITS | Encounter Summary ---
Author Organization [facility] [place] [place] [address] Care Team Providers Care Senior Materials Planner Name Role Phone Lolly Oliveira MD Primary Care Provider [phone] Encounter Details Date Type Department Care Team (Latest Contact Info) Description 04/21/2023 10:00 AM EST - 04/21/2023 11:59 PM EST Hospital Encounter Non[place] [address] Discharge Disposition: Home Social History Tobacco Use [...] with spacer fluticasone propionate (Flonase) 50 mcg/actuation [place], Suspension 1 spray by Each Nare route [...] AM EST Hospital Encounter Non-[place] [address] Arrived documented as of this [...] filedocumented in this encounter Care Teams Senior Materials Planner Relationship Specialty Start Date End Date Lolly Oliveira MD [address] [place] [address] PCP - General 07/17/13 documented as of this encounter
--- OUTSIDE RECORDS SUMMARY | 2023-11-10 11:49 | XMS_ITS | Encounter Summary ---
Author Organization [facility] [place] [address] Care Team Providers Care Gathering Machine Setter Name Role Phone Lolly Oliveira MD Primary Care Provider [phone] Encounter Details Date Type Department Care Team (Latest Contact Info) Description 01/21/2023 10:00 AM EST - 01/21/2023 11:59 PM EST Hospital Encounter [place] [address] Discharge Disposition: Home Social History Tobacco Use [...] with spacer fluticasone propionate (Flonase) 50 mcg/actuation [place], Suspension 1 spray by Each Nare route [...] AM EST Hospital Encounter [place] [address] Arrived documented as of this [...] filedocumented in this encounter Care Teams Gathering Machine Setter Relationship Specialty Start Date End Date Lolly Oliveira MD [address] [place] [address] PCP - General 07/17/13 documented as of this encounter
--- OUTSIDE RECORDS SUMMARY | 2023-11-10 11:49 | XMS_ITS | Encounter Summary ---
Author Organization [facility] [place] [address] Care Team Providers Care Dry Primer Powder Blender Name Role Phone Lolly Oliveira MD Primary Care Provider [phone] Encounter Details Date Type Department Care Team (Late st Contact Info) Description 05/18/2023 Telephone Dermatology at [address] [address] Nora Meredith LPN Social History [...] [facility] Encounter [place] [address] Arrived documented as of this encounter Visit Diagnoses Not on filedocumented in this encounter Care Teams Dry Primer Powder Blender Relationship Specialty Start Date End Date Lolly Oliveira MD [address] [place] [address] PCP - General 07/17/13 documented as of this encounter
--- OUTSIDE RECORDS SUMMARY | 2023-11-10 11:49 | XMS_ITS | Encounter Summary ---
Author Organization [facility] Address [facility] [place] [address] Care Team Providers Care It Security Specialist Name Role Phone Lolly Oliveira MD Primary Care Provider [phone] Reason for Visit * Auth/Cert (Routine) Specialty Diagnoses / Procedures Referred By Contac t Referred To Contact Diagnoses Left bundle-branch block, unspecified Other cardiomyopathies Left bundle branch block [I44.7]Nonischemic cardiomyopathy [I42.8] Procedures PRG CATH PLMT LEFT HEART CATH & ARTS W/INJ & ANGIO IMG S&I ELECTROPHYSIOLOGY PROCEDURE Lalit Mcmahon MD [facility] [place] [address] [facility] Referral ID Status Reason Start Date Expiration Date Visits Re quested Visits Authorized [id number] 1 1 Encounter Details Date Type Department Care Team (Late st Contact Info) Description 07/23/2022 1:08 PM EDT Anesthesia Event [place] [address] Monae Gonzalez MD [facility] [place] [address] Maria Elena Snyder CRNA [facility] [place] [address] Anesthesia Record Procedure Summary Procedure Name Responsible [...] 1307; median cubital vein (antecubital fossa), right; nwpm-oev-qyqbyi catheter system; Anatomical Landmarks; 20 gauge; 07/24/22; [...] 1343; metacarpal vein (top of hand), left; jnaj-hto-cotspo catheter system; Anatomical Landmarks; US Not Used; [...] Procedure Summary Date: 07/23/22 Room / Location: [facility] A-LAB ROOM 3 / [facility] EP LABS Anesthesia Start: 1308 Anesthesia Stop: 1633 Procedure: ELECTROPHYSIOLOGY PROCEDURE (Left) Diagnosis: Left bundle branch block Nonischemic cardiomyopathy (Left bundle branch block [I44.7]Nonischemic cardiomyopathy [I42.8]) Providers: Lalit Mcmahon MD Responsible Provider: Monae Gonzalez MD Anesthesia Type: general ASA Status: 4 All Anesthesia Providers: Anesthesiologist: Monae Gonzalez MD; Dominique Sen MD CUT OFF MACHINE UNLOADER: Maria Elena Snyder CRNA Vitals Value Taken Time BP 131/46 07/23/22 1700 Temp 36.7 ??C (98.1 ??F) 07/23/22 1627 Pulse 67 07/23/22 1703 Resp 14 07/23/22 1703 SpO2 98 % 07/23/22 1703 Pain Level Vitals shown include unvalidated device data. Patient Location: PACU/[facility] Level of Consciousness: Conscious but [...] and Nonischemic CM (EF 15-20%)who presents for XEROX MACHINE OPERATOR-D. No prior anesthetic records. Pt states that [...] daughter/son and patient who. Plan discussed with CUT OFF MACHINE UNLOADER. Anesthesia Screening documented in this encounter Plan of Treatment Upcoming Encounters Date Type Department Care Team (Late st Contact Info) Description 01/16/2024 10:00 AM [facility] Hospital Encounter Non[place] [address] Arrived documented as of this [...] mg documented in this encounter Care Teams It Security Specialist Relationship Specialty Start Date End Date Lolly Oliveira MD [address] [place] [address] PCP - General 07/17/13 documented as of this encounter
--- OUTSIDE RECORDS SUMMARY | 2023-11-10 11:49 | XMS_ITS | Encounter Summary ---
Author Organization [facility] Address [facility] [place] [address] Care Team Providers Care Sharepoint Designer Developer Name Role Phone Lolly Oliveira MD Primary Care Provider [phone] Encounter Details Date Type Department Care Team (Late st Contact Info) Description 05/03/2023 Telephone Cardiology at [address] [phone] Lalit Mcmahon MD [facility] [place] [address] Social History Tobacco Use Types Packs/Day Years [...] AM EST Hospital Encounter Non-[place] [address] Arrived documented as of this encounter Visit Diagnoses Not on filedocumented in this encounter Care Teams Sharepoint Designer Developer Relationship Specialty Start Date End Date Lolly Oliveira MD [address] [place] [address] PCP - General 07/17/13 documented as of this encounter
--- OUTSIDE RECORDS SUMMARY | 2023-11-10 11:49 | XMS_ITS | Encounter Summary ---
Author Organization [facility] [place] [address] Care Team Providers Care Weigher Alloy Name Role Phone Lolly Oliveira MD Primary Care Provider [phone] Encounter Details Date Type Department Care Team (Late Contact Info) Description 01/14/2022 Telephone Dermatology at [address] [address] Nora Meredith LPN Social History [...] AM EST Hospital Encounter Non[place] [address] Arrived documented as of this encounter Visit Diagnoses Not on filedocumented in this encounter Care Teams Weigher Alloy Relationship Specialty Start Date End Date Lolly Oliveira MD [address] [place] [address] PCP - General 07/17/13 documented as of this encounter
--- OUTSIDE RECORDS SUMMARY | 2023-11-10 11:49 | XMS_ITS | Encounter Summary ---
Author Organization [facility] [address] Care Team Providers Care Cemetery Workers Supervisor Name Role Phone Lolly Oliveira MD Primary Care Provider [phone] Reason for Visit * Auth/Cert (Routine) Specialty Diagnoses / Procedures Referred By Contac t Referred To Contact Diagnoses Left bundle-branch block, unspecified Other cardiomyopathies Left bundle branch block [I44.7]Nonischemic cardiomyopathy [I42.8] Procedures PRG CATH PLMT LEFT HEART CATH & ARTS W/INJ & ANGIO IMG S&I ELECTROPHYSIOLOGY PROCEDURE Lalit Mcmahon MD [facility] [place] [address] [facility] Referral ID Status Reason Start Date Expiration Date Visits Re quested Visits Authorized [id number] 1 1 Encounter Details Date Type Department Care Team (Late st Contact Info) Description 07/23/2022 1:00 PM EDT - 07/23/2022 5:30 PM EDT Surgery [place] [address] [facility] [place] [address] ELECTROPHYSIOLOGY PROCEDURE Social History Tobacco Use Types Packs/Day Years Used Date Smoking Tobacco: Never Tobacco Cessation:Counseling Given: Not Answered Alcohol Use Standard Drinks/Week Comments Not Currently 0 (1 standard drink = 0.6 oz pur e alcohol) [facility] Inpatient Questions Answer Date Recorded Does Anyone [...] MD Follow-up Recommendations for Providers: - s/p INTERNATIONAL RECRUITER-D implant - post implant QRS 130 ms [...] Nevus ??? Solar lentigo Operations/Major Procedures: 07/23/22: [facility] INTERNATIONAL RECRUITER-D implant History of Presentation: 71 y.o. female with a history of HFrEF, LBBB, QRS >150, NYHA II who is POD#1 of INTERNATIONAL RECRUITER-D implant ([employer]). Hospital Course: Elective admission for INTERNATIONAL RECRUITER-D implant Admitted post-implant for pain management, telemetry [...] (heart failure with reduced ejection fraction) [I50.20] INTERNATIONAL RECRUITER-D implant Admission Condition: good Indication for Admission: [...] g Refills: 3 fluticasone propionate 50 mcg/actuation Rentz, Suspension Commonly known as: Flonase 1 spray [...] incision. Make sure to use a cloth shrinking tester (such as a towel) in between the [...] F. The office scheduling phone number is [phone]. ARM MOVEMENT RESTRICTIONS POST-IMPLANT - Do not [...] please call the Cardiac ElectrophysiologyTriage Nurse at [phone], option 3. General Instructions None Discharge References/Attachments [...] incision. Make sure to use a cloth shrinking tester (such as a towel) in between the [...] F. The office scheduling phone number is [phone]. ARM MOVEMENT RESTRICTIONS POST-IMPLANT - Do not [...] please call the Cardiac ElectrophysiologyTriage Nurse at [phone], option 3. documented in this encounter Medications [...] with spacer fluticasone propionate (Flonase) 50 mcg/actuation Rentz, Suspension 1 spray by Each Nare route [...] Cardiac Electrophysiology Post-Implant Device Interrogation Luna Mott [id number] 07/24/2022 History: Luna Mott is a 71 y.o. female with a history of HFrEF, LBBB, QRS >150, NYHA II who is POD#1 of INTERNATIONAL RECRUITER-D implant ([employer]). Overall feels well this morning. Ready [...] WOB Neuro- A&Ox3 Device Interrogation: Data ?? Technician Helper Instrument Model # Serial # Generator [employer] [id number] Atrial Lead [employer] [id number] RV Lead [employer] 0672 [id number] LV Lead [employer] [id number] ?? Diagnostics Pacing Mode: DDD 60-130 Underlying Rhythm: [place] Atrial Episodes: None Ventricular Episodes: None FINAL PROGRAMMING: Pacing: Mode Lower rate (ppm) Upper rate (ppm) ?? DDD 60 130 VF: Rate (bpm) #Antitachycardia pacing First shock energy (J) ?? 200 Quick convert 41 VT: 170 Monitor only Monitor only ? Battery and Leads Impedances (ohms) Sensing (mV) Thresholds HV RA RV LV RA RV LV RA RV LV 73 [phone] (LVa) 7.7 13.1 >25 0.4V @ 0.4 ms 0.4V @ 0.4 ms 0.5 V @ 1.0 ms POD#1 CXR: All leads in nominal positioning Impression: 71 y.o. female who is s/p INTERNATIONAL RECRUITER-D implant for LBBB, NYHA II, HFrEF. - [...] [facility]) Fadi Nunez MD 07/24/2022 Pager: [phone] I met with the patient today and [...] agreement. ? Dr. Lalit Mcmahon, electrophysiology attending ([id number]) * Zaria Wright RN - 07/23/2022 8:28 [...] HF, QRS > 150 ms presents for INTERNATIONAL RECRUITER-D placement. ROS: Denies recent fevers or chills [...] 0.9) flush 5 mL 5 mL Intravenous [id number] ramos MD ??? sodium chloride 0.9 % [...] HF, QRS > 150 ms presents for INTERNATIONAL RECRUITER-D placement. Backup would be LBBAP lead. Antibiotics: cefazolin Rationales for, intended benefits and potential risk of planned procedures reviewed. The patient indicated understanding and agreement with the plan. Informed consent signed. Procedure checklist completed. Fadi Nunez MD Cardiac Electrophysiology Fellow [facility] Pager [phone] 07/23/2022 I met with the patient today [...] agreement. ? Dr. Lalit Mcmahon, electrophysiology attending ([id number]) documented in this encounter Miscellaneous Notes * Brief Op Note - Lalit Mcmahon MD - 07/23/2022 4:04 PM EDT Brief Operative Note Patient Name: Luna Mott : [id number] MR#: [id number] Case Date: 07/23/2022 Surgeon: Surgeon(s) and Role: [...] AM EST Hospital Encounter [place] [address] Arrived Scheduled Orders Name Type Priority Associated Diagnoses Orde r Schedule EKG 12 Lead ECG Routine Cardiac resynchronization therapy defibrillator (INTERNATIONAL RECRUITER-D) in place One Time for 1 Occurrences [...] (Bezet) 522 ms MUSE SYSTEM Calculated R Ruth 78 degrees MUSE SYSTEM Calculated T Ruth -71 degrees MUSE SYSTEM INTERPRETATION AV dual-paced [...] who have questions please contact the health director critical care that requested your imaging first. ? Electronically signed by: Kwame Vargas MD, [facility] ([phone]), at 07/24/2022 6:43 AM Narrative 07/24/2022 6:43 [...] patients who have questions please contactthe health director critical care that requested your imaging first. Electronically signed by: Kwame Vargas MD, [facility]([phone]), at 07/24/2022 6:43 AM Lalit Mcmahon MD IMG DX ORDERABLES * ELECTROPHYSIOLOGY PROCEDURE (07/23/2022 1:11 PM EDT) Anatomical Region Laterality Modality Other Narrative 07/23/2022 4:24 PM EDT Table formatting from the original result was not included. BIVENTRICULAR ICD IMPLANTATION Second Watch Sergeant: Lalit Mcmahon MD Fellow: Fadi Nunez MD [...] lateral branch of the CS in the SINHALA view. This branch was cannulated with a [...] the entire procedure. LEAD AND GENERATOR DATA: Technician Helper Instrument Model # Serial # Generator [employer] [id number] Atrial Lead [employer] [id number] RV Lead [employer] 0672 [id number] LV Lead [employer] [id number] PACE/SENSE DATA: Sensed wave (mV) Threshold (V) [...] (cGycm2) 300 CONCLUSIONS: Successful implantation of a [employer] biventricular ICD for primary prevention and treatment of symptoms related to congestive heart failure. Follow up in EP clinic in 1-2 months. Procedures performed: new ICD system ( cpt 72462-O6); implant LV lead at time of ICD insertion (cpt 37127) I have read, edited and approve of this report: Lalit Mcmahon MD [facility] Cardiac Electrophysiology 07/23/2022 4:22 PM Procedure Note Lalit Mcmahon MD - 07/23/2022 BIVENTRICULAR ICD IMPLANTATION Second Watch Sergeant: Lalit Mcmahon MD Fellow: Fadi Nunez MD [...] appropriate lateralbranch of the CS in the SINHALA view. This branch was cannulated with a [...] in the entireprocedure. LEAD AND GENERATOR DATA: Technician Helper Instrument Model # Serial # Generator [employer] [id number] Atrial Lead [employer] 7841 [id number] RV Lead [employer] 0672 [id number] LV Lead [employer] [id number] PACE/SENSE DATA: Sensed wave (mV) Threshold (V) [...] (cGycm2) 300 CONCLUSIONS: Successful implantation of a [employer] biventricular ICD forprimary prevention and treatment of symptoms related to congestive heartfailure. Follow up in EP clinic in 1-2 months. Procedures performed: new ICD system ( cpt 43420-R2); implant LV lead attime of ICD insertion (cpt 43897) I have read, edited and approve of this report: Lalit Mcmahon MD S Cardiac Electrophysiology 07/23/2022 4:22 PM Lalit Mcmahon MD EP PROCEDURE ORDERAB LES * POCT Glucose (07/23/2022 12:54 PM EDT) [facility] Signature Glucose, POC 83 65 - 199 mg/dL [facility] Comment: Supplemental ranges: <140 mg/dL before meals <180 mg/dL all other times of the day Blood 07/23/2022 12:5 4 PM EDT 07/23/2022 12:54 PM EDT Lalit Mcmahon MD POINT OF CARE TEST O RDERABLES Performing Organization Address City/[facility]/ZIP Co de Phone Number [facility] [place] [address] * EKG 12 Lead (07/23/2022 12:33 PM EDT) Ventricular rate 72 BPM MUSE SYSTEM Atrial Rate 72 BPM MUSE SYSTEM P-R Interval 158 ms MUSE SYSTEM QRS Duration 176 ms MUSE SYSTEM Q-T Interval 458 ms MUSE SYSTEM QTC Calculated (Bezet) 501 ms MUSE SYSTEM Calculated P Ruth 34 degrees MUSE SYSTEM Calculated R Ruth 12 degrees MUSE SYSTEM Calculated T Ruth -173 degrees MUSE SYSTEM INTERPRETATION Normal sinus rhythm Left bundle branch block Abnormal ECG No previous ECGs available Confirmed by MD Salome, Lalit ([id number]) on 07/23/2022 1:19:03 PM MUSE SYSTEM 07/23/2022 12:3 3 PM EDT 07/23/2022 1:19 PM EDT Lalit Mcmahon MD ECG ORDERABLES Performing Organization Address [facility]/ZIP Co de Phone Number MUSE SYSTEM * Differential, Automated (07/23/2022 11:55 AM EDT) Neutrophil % 62.6 % [facility] Neutrophil Absolute 4.14 1.70 - 6.10 x10(3)/[facility] Lymph % 27.0 % [facility] Lymphocytes Abs 1.8 0.9 - 3.2 x10(3)/[facility] Monocyte % 7.3 % [facility] Monocyte Abs 0.5 0.3 - 0.9 x10(3)/[facility] Eos % 2.3 % [facility] Eosinophils Abs 0.2 0.0 - 0.4 x10(3)/[facility] Basophil % 0.6 % [facility] Baso Absolute 0.0 0.0 - 0.1 x10(3)/[facility] Immature Gran % 0.20 % [facility] Comment: Immature granulocytes(IG's)percentage and absolute count will include metamyelocytes, myelocytes, and promyelocytes. Blood smears from CBCs yielding IG's will be scanned manually for concordance. If this scan disagrees with the automated IG or if promyelocytes are noted, a manual differential will be performed. Immature Gran Absolute 0.01 0.00 - 0.04 x10(3)/[facility] Blood 07/23/2022 11:5 5 AM EDT 07/23/2022 12:07 PM EDT Narrative Resulting Agency Comment Spec In Lab Lalit Mcmahon MD HEMATOLOGY ORDERABLE S [facility] [place] [address] * Hemogram (07/23/2022 11:55 AM EDT) White Blood Cell 6.6 4.0 - 9.5 x10(3)/[facility] Red Blood Cell 4.50 4.00 - 5.21 x10(6)/[facility] Hemoglobin 13.7 11.7 - 15.5 g/dL [facility] Hematocrit 42.5 35.7 - 45.8 % [facility] Mean Cell Volume 94.4 82.6 - 94.4 fL [facility] Mean Cell Hemoglobin 30.4 27.1 - 32.0 pg [facility] Mean Cell Hemoglobin Concentration 32.2 31.7 - 35.0 g/dL [facility] Platelet 193 145 - 357 x10(3)/[facility] RDW Standard Deviation 45.5 37.0 - 46.0 fL [facility] RDW coefficient of variation 13.2 11.5 - 14.1 % [facility] Mean Platelet Volume 9.5 7.6 - 12.9 fL [facility] NRBC% auto 0.0 % [facility] NRBC Absolute 0.000 0.000 - 0.000 x10(3)/[facility] Blood 07/23/2022 11:5 5 AM EDT 07/23/2022 12:07 PM EDT Narrative Resulting Agency Comment Spec In Lab Lalit Mcmahon MD HEMATOLOGY ORDERABLE S [facility] [place] [address] * (ABNORMAL) BMP w/fasting Glucose (07/23/2022 11:55 AM EDT) Glucose Fasting 110(H) 65 - 99 mg/dL [facility] Comment: ?Fasting* Glucose Interpretive [...] Urea Nitrogen 23(H) 8 - 18 mg/dL [facility] Creatinine 1.07 0.70 - 1.20 mg/dL [facility] Sodium 141 135 - 145 mmol/L [facility] Potassium 4.8 3.5 - 5.0 mmol/L [facility] Comment: Please note: ??Patients with WBC >100,000 may have falsely elevated Potassium levels. ??For accurate Potassium quantification in these patients send serum separator tube (gold top) for subsequent determinations. ??Contact the Clinical Chemistry Laboratory if there are any questions. Chloride 106 98 - 107 mmol/L [facility] Carbon Dioxide 26 22 - 31 mmol/L [facility] Anion Gap 9 5 - 15 mmol/L [facility] Calcium 9.7 8.5 - 10.5 mg/dL [facility] Est Glomerular Filtration Rate 55(L) >=60 mL/min/1. 73 m?? [facility] Comment: This patient's estimated [...] Mcmahon MD CHEMISTRY ORDERABLES Performing Organization Address [facility] Co de Phone Number [facility] [place] [address] * Prothrombin Time (07/23/2022 11:55 AM EDT) Prothrombin Time 11.7 9.4 - 12.5 sec [facility] International Normalization Ratio 1.0 [facility] Comment: An INR <2.0 [...] MD HEMATOLOGY ORDERABLE S Performing Organization Address City/[facility] Co de Phone Number [facility] [place] [address] documented in this encounter Visit Diagnoses Diagnosis HFrEF (heart failure with reduced ejection fraction)- Primary Left bundle branch block Other left bundle branch block Nonischemic cardiomyopathy Other primary cardiomyopathies Cardiac resynchronization therapy defibrillator (INTERNATIONAL RECRUITER-D) in place Left bundle branch block Other [...] in the AM) 0849 (Given - Provider: Aila Frye RN) furosemide (Lasix) tablet 20 mg [...] Routine documented in this encounter Care Teams Cemetery Workers Supervisor Relationship Specialty Start Date End Date Lolly Oliveira MD [address] [place] [address] PCP - General 07/17/13 documented as of this encounter
--- OUTSIDE RECORDS SUMMARY | 2023-11-10 11:49 | XMS_ITS | Encounter Summary ---
[place] [address] Care Team Providers Care Right Of Way Maintenance Supervisor Name Role Phone Lolly Oliveira MD Primary Care Provider [phone] Encounter Details Date Type Department Care Team [...] AM EST Hospital Encounter Non[place] [address] Arrived documented as of this encounter Visit Diagnoses Not on filedocumented in this encounter Care Teams Right Of Way Maintenance Supervisor Relationship Specialty Start Date End Date Lolly Oliveira MD [address] [place] [address] PCP - General 07/17/13 documented as of this encounter
--- OUTSIDE RECORDS SUMMARY | 2023-11-10 11:49 | XMS_ITS | Encounter Summary ---
Author Organization [facility] [place] [address] Care Team Providers Care Loose Hand Packer Name Role Phone Lolly Oliveira MD Primary Care Provider [phone] Reason for Referral * Diagnostic Test (Routine) - Closed Specialty Diagnoses / Procedures Referred By Contac t Referred To Contact Radiology Diagnoses Left bundle branch block Nonischemic cardiomyopathy Procedures MRI Cardiac Morphology Function With Flow Velocity Quantification [facility] Contrast MRI Cardiac Morphology Function wwo Contrast Lalit Mcmahon MD [facility] [place] [address] [place] [address] Referral ID Status Reason Start Date Expiration Date V isits Requested Visits Authorized [id number] Closed Specialty Service Requested 05/06/2022 11/07/2023 2 1 Reason for Visit * Diagnostic Test (Routine) - Closed Specialty Diagnoses / Procedures Referred By Contac t Referred To Contact Radiology Diagnoses Left bundle branch block Nonischemic cardiomyopathy Procedures MRI Cardiac Morphology Function With Flow Velocity Quantification o Contrast MRI Cardiac Morphology Function wwo Contrast Lalit Mcmahon MD [facility] [place] [address] [place] [address] Referral ID Status Reason Start Date Expiration Date V isits Requested Visits Authorized [id number] Closed Specialty Service Requested 05/06/2022 11/07/2023 2 1 Encounter Details Date Type Department Care Team (Latest Contact Info) Description 07/14/2022 9:08 AM EDT Hospital Encounter MRI at [facility] [place] [address] Lalit Mcmahon MD [facility] [place] [address] Left bundle branch block; Nonischemic cardiomyopathy Discharge [...] with spacer fluticasone propionate (Flonase) 50 mcg/actuation [place], Suspension 1 spray by Each Nare route [...] 71 y.o. : 1950 [address] [facility] [address] Female [phone] (home) No relevant phone numbers on file. Lolly Oliveira MD None Allergies Allergen Reactions ??? Sulfa (Sulfonamide Antibiotics) Date/Time of call: July 07, 2022/11:03 AM/ PREVIOUS MRI SCAN? HEIGHT: WEIGHT: SCHEDULED SCAN: MRI CARDIAC MORPHOLOGY FUNCTION WITH FLOW VELOCITY QUANTIFICATION WWO CONTRAST [[id number]] Order Questions Answers Where will study be performed? [facility] Radiology [120] SUBJECTIVE: Very Claustrophobic CAN YOU [...] ( KV ) You must have a cement mixer driver present when you check in. This patient has been informed that they require a cement mixer driver to drive them home after this procedure. In the absence of a cement mixer driver, IR will not be able to sedate for your scan. Pt verbalized understanding of these instructions during the pre-procedure education via phone. Yes Name of cement mixer driver: Daughter Phone number: PRIOR SCAN DATE/S SEDATION TYPE SUCCESSFUL 07/14/22 MRI Cardiac Morphology Function with Flow Velocity Quantification wwo Contrast Ativan 1mg x 1 dose Pass Revised 08/03/17 documented in this encounter Plan of Treatment Upcoming Encounters Date Type Department Care Team (Late st Contact Info) Description 01/16/2024 10:00 AM [facility] Hospital Encounter Non-Invasive [place] [address] Arrived documented as of this encounter Procedures [...] who have questions please contact the health live in caregiver that requested your imaging first. ? Electronically signed by: Greyson Herron MD, [facility] ([phone]), at 07/15/2022 9:53 AM Narrative 07/15/2022 9:53 [...] patients who have questions please contactthe health live in caregiver that requested your imaging first. Lalit [...] mg documented in this encounter Care Teams Loose Hand Packer Relationship Specialty Start Date End Date Lolly Olievira MD [address] [place] [address] PCP - General 07/17/13 documented as of this encounter
--- OUTSIDE RECORDS SUMMARY | 2023-11-10 11:49 | XMS_ITS | Encounter Summary ---
Author Organization [place] [address] Care Team Providers Care Technical Sourcing Recruiter Name Role Phone Lolly Oliveira MD Primary Care Provider [phone] Encounter Details Date Type Department Care Team (Latest Contact Info) Description 07/20/2023 10:00 AM EDT - 07/20/2023 11:59 PM EDT Hospital Encounter Non[place] [address] Discharge Disposition: Home Social History Tobacco Use [...] with spacer fluticasone propionate (Flonase) 50 mcg/actuation [place], Suspension 1 spray by Each Nare route daily as needed. documented as of this encounter Plan of Treatment Upcoming Encounters Date Type Department Care Team (Late st Contact Info) Description 01/16/2024 10:00 AM [facility] Hospital Encounter [place] [address] Arrived documented as of this encounter Procedures [...] filedocumented in this encounter Care Teams Technical Sourcing Recruiter Relationship Specialty Start Date End Date Lolly Oliveira MD [address] [place] [address] PCP - General 07/17/13 documented as of this encounter
--- OUTSIDE RECORDS SUMMARY | 2023-11-10 11:49 | XMS_ITS | Encounter Summary ---
Author Organization [facility] [place] [address] Care Team Providers Care Cmv Driver Name Role Phone Lolly Oliveira MD Primary Care Provider [phone] Reason for Visit * Reason Comments Psoriasis Encounter Details Date Type Department Care Team (Late st Contact Info) Description 04/09/2022 1:45 PM EST Office Visit Dermatology at [address] [address] Clay Ramírez MD [address] [facility] [place] [address] Psoriasis, guttate Social History Tobacco Use Types [...] AM EST Hospital Encounter Non-Invasive [place] [address] Arrived documented as of this encounter Visit Diagnoses Diagnosis Psoriasis, guttate Other psoriasis documented in this encounter Care Teams Cmv Driver Relationship Specialty Start Date End Date Lolly Oliveira MD [address] [place] [address] PCP - General 07/17/13 documented as of this encounter
--- OUTSIDE RECORDS SUMMARY | 2023-11-10 11:49 | XMS_ITS | Encounter Summary ---
Author Organization [facility] Address [facility] [place] [address] Care Team Providers Care Relocation Counselor Name Role Phone Lolly Oliveira MD Primary Care Provider [phone] Reason for Visit * Auth/Cert (Routine) Specialty Diagnoses / Procedures Referred By Contac t Referred To Contact Diagnoses Left bundle-branch block, unspecified Other cardiomyopathies Left bundle branch block [I44.7]Nonischemic cardiomyopathy [I42.8] Procedures PRG CATH PLMT LEFT HEART CATH & ARTS W/INJ & ANGIO IMG S&I ELECTROPHYSIOLOGY PROCEDURE Lalit Mcmahon MD [facility] [address] [facility] Referral ID Status Reason Start Date Expiration Date Visits Re quested Visits Authorized [id number] 1 1 Encounter Details Date Type Department Care Team (Latest Contact Info) Description 07/23/2022 11:39 AM EDT - 07/24/2022 10:23 AM EDT Hospital [place] [phone] Lalit Mcmahon MD [facility] [place] [address] Left bundle branch block; Nonischemic cardiomyopathy; Cardiac resynchronization therapy defibrillator (BRICK OR BLOCK MAKER-D) in place Discharge Disposition: Home Social History [...] Luna Mott Patient Age: 71 y.o. Language: [place] Race: White Ethnicity: Not nor Admit date: 07/23/2022 Discharge date and time: 07/24/22 Attending Physician: Lalit Mcmahon MD Discharge Physician: Lalit Mcmahon MD Follow-up Recommendations for Providers: - s/p BRICK OR BLOCK MAKER-D implant - post implant QRS [...] Nevus ??? Solar lentigo Operations/Major Procedures: 07/23/22: [facility] BRICK OR BLOCK MAKER-D implant History of Presentation: 71 y.o. female with a history of HFrEF, LBBB, QRS >150, NYHA II who is POD#1 of BRICK OR BLOCK MAKER-D implant ([employer]). Hospital Course: Elective admission for BRICK OR BLOCK MAKER-D implant Admitted post-implant for pain management, telemetry [...] (heart failure with reduced ejection fraction) [I50.20] BRICK OR BLOCK MAKER-D implant Admission Condition: good Indication for Admission: [...] g Refills: 3 fluticasone propionate 50 mcg/actuation [place], Suspension Commonly known as: Flonase 1 [...] the incision. Make sure to use a personal clothing laundry aide (such as a towel) in between the [...] F. The office scheduling phone number is [phone]. ARM MOVEMENT RESTRICTIONS POST-IMPLANT - Do not [...] please call the Cardiac ElectrophysiologyTriage Nurse at [phone], option 3. General Instructions None Discharge References/Attachments None Lalit Mcmahon MD S Cardiac Electrophysiology 07/24/2022 12:33 PM documented in this encounter Discharge Instructions * Patient Instructions* Fadi Nunez MD - 07/24/2022 8:10 AM EDT FINAL ICD/PACEMAKER RECOMMENDATIONS: 1. Standard post implant discharge instructions (see below): 2. Medications as listed above. You may use ice packs over the incision. Make sure to use a personal clothing laundry aide (such as a towel) in between the [...] F. The office scheduling phone number is [phone]. ARM MOVEMENT RESTRICTIONS POST-IMPLANT - Do not [...] please call the Cardiac ElectrophysiologyTriage Nurse at [phone], option 3. documented in this encounter Medications [...] with spacer fluticasone propionate (Flonase) 50 mcg/actuation [place], Suspension 1 spray by Each Nare [...] Cardiac Electrophysiology Post-Implant Device Interrogation Luna Mott [id number] 07/24/2022 History: Luna Mott is a 71 y.o. female with a history of HFrEF, LBBB, QRS >150, NYHA II who is POD#1 of BRICK OR BLOCK MAKER-D implant ([employer]). Overall feels well this morning. Ready [...] WOB Neuro- A&Ox3 Device Interrogation: Data ?? Mold Washer Model # Serial # Generator [employer] [id number] Atrial Lead [employer] [id number] [id number] RV Lead [employer] 0672 053256 LV Lead [employer] 4674 134110 ?? Diagnostics Pacing Mode: DDD 60-130 Underlying Rhythm: Sunflower Atrial Episodes: None Ventricular Episodes: None FINAL PROGRAMMING: Pacing: Mode Lower rate (ppm) Upper rate (ppm) ?? DDD 60 130 VF: Rate (bpm) #Antitachycardia pacing First shock energy (J) ?? 200 Quick convert 41 VT: 170 Monitor only Monitor only ? Battery and Leads Impedances (ohms) Sensing (mV) Thresholds HV RA RV LV RA RV LV RA RV LV 73 917 088 3588 (LVa) 7.7 13.1 >25 0.4V @ 0.4 ms 0.4V @ 0.4 ms 0.5 V @ 1.0 ms POD#1 CXR: All leads in nominal positioning Impression: 71 y.o. female who is s/p BRICK OR BLOCK MAKER-D implant for LBBB, NYHA II, HFrEF. - [...] [facility]) Fadi Nunez MD 07/24/2022 Pager: [phone] I met with the patient today and [...] agreement. ? Dr. Lalit Mcmahon, electrophysiology attending ([id number]) * Zaria Wright RN - 07/23/2022 8:28 [...] HF, QRS > 150 ms presents for BRICK OR BLOCK MAKER-D placement. ROS: Denies recent fevers or chills [...] 0.9) flush 5 mL 5 mL Intravenous [id number] ramos MD ??? sodium chloride 0.9 % [...] HF, QRS > 150 ms presents for BRICK OR BLOCK MAKER-D placement. Backup would be LBBAP lead. Antibiotics: cefazolin Rationales for, intended benefits and potential risk of planned procedures reviewed. The patient indicated understanding and agreement with the plan. Informed consent signed. Procedure checklist completed. Fadi Nunez MD Cardiac Electrophysiology Fellow [facility] Pager [phone] 07/23/2022 I met with the patient today [...] agreement. ? Dr. Lalit Mcmahon, electrophysiology attending ([id number]) documented in this encounter Miscellaneous Notes * Brief Op Note - Lalit Mcmahon MD - 07/23/2022 4:04 PM EDT Brief Operative Note Patient Name: Luna Mott : [id number] MR#: [id number] Case Date: 07/23/2022 Surgeon: Surgeon(s) and Role: [...] AM EST Hospital Encounter [place] [address] Arrived Scheduled Orders Name Type Priority Associated Diagnoses Orde r Schedule EKG 12 Lead ECG Routine Cardiac resynchronization therapy defibrillator (BRICK OR BLOCK MAKER-D) in place One Time for 1 Occurrences [...] (Bezet) 522 ms MUSE SYSTEM Calculated R Gilberts 78 degrees MUSE SYSTEM Calculated T Gilberts -71 degrees MUSE SYSTEM INTERPRETATION AV dual-paced [...] who have questions please contact the health lawn caretaker that requested your imaging first. ? Electronically signed by: Kwame Vargas MD, [facility] ([phone]), at 07/24/2022 6:43 AM Narrative 07/24/2022 6:43 [...] patients who have questions please contactthe health lawn caretaker that requested your imaging first. Electronically signed by: Kwame Vargas MD, [facility]([phone]), at 07/24/2022 6:43 AM Lalit Mcmahon MD IMG DX ORDERABLES * ELECTROPHYSIOLOGY PROCEDURE (07/23/2022 1:11 PM EDT) Anatomical Region Laterality Modality Other Narrative 07/23/2022 4:24 PM EDT Table formatting from the original result was not included. BIVENTRICULAR ICD IMPLANTATION Firer Kiln: Lalit Mcmahon MD Fellow: Fadi Nunez MD [...] lateral branch of the CS in the DIVEHI view. This branch was cannulated with a [...] the entire procedure. LEAD AND GENERATOR DATA: Mold Washer Model # Serial # Generator [employer] [id number] Atrial Lead [employer] 7841 [id number] RV Lead [employer] 0672 [id number] LV Lead [employer] 4674 [id number] PACE/SENSE DATA: Sensed wave (mV) Threshold (V) [...] (cGycm2) 300 CONCLUSIONS: Successful implantation of a [employer] biventricular ICD for primary prevention and treatment of symptoms related to congestive heart failure. Follow up in EP clinic in 1-2 months. Procedures performed: new ICD system ( cpt 06644-K2); implant LV lead at time of ICD insertion (cpt 57740) I have read, edited and approve of this report: Lalit Mcmahon MD S Cardiac Electrophysiology 07/23/2022 4:22 PM Procedure Note Lalit Mcmahon MD - 07/23/2022 BIVENTRICULAR ICD IMPLANTATION Firer Kiln: Lalit Mcmahon MD Fellow: Fadi Nunez MD [...] appropriate lateralbranch of the CS in the DIVEHI view. This branch was cannulated with a [...] in the entireprocedure. LEAD AND GENERATOR DATA: Mold Washer Model # Serial # Generator [employer] [id number] Atrial Lead [employer] 7841 [id number] RV Lead [employer] 0672 043527 LV Lead [employer] 4674 395451 PACE/SENSE DATA: Sensed wave (mV) Threshold (V) [...] (cGycm2) 300 CONCLUSIONS: Successful implantation of a [employer] biventricular ICD forprimary prevention and treatment of symptoms related to congestive heartfailure. Follow up in EP clinic in 1-2 months. Procedures performed: new ICD system ( cpt 51211-A1); implant LV lead attime of ICD insertion (cpt 77135) I have read, edited and approve of this report: Lalit Mcmahon MD [facility] Cardiac Electrophysiology 07/23/2022 4:22 PM Lalit Mcmahon MD EP PROCEDURE ORDERAB LES * POCT Glucose (07/23/2022 12:54 PM EDT) Glucose, POC 83 65 - 199 mg/dL [facility] Comment: Supplemental ranges: <140 mg/dL before meals <180 mg/dL all other times of the day Blood 07/23/2022 12:5 4 PM EDT 07/23/2022 12:54 PM EDT Lalit Mcmahon MD POINT OF CARE TEST O RDERABLES Performing Organization Address [facility] Co de Phone Number [facility] [place] [address] * EKG 12 Lead (07/23/2022 12:33 PM EDT) Ventricular rate 72 BPM MUSE SYSTEM Atrial Rate 72 BPM MUSE SYSTEM P-R Interval 158 ms MUSE SYSTEM QRS Duration 176 ms MUSE SYSTEM Q-T Interval 458 ms MUSE SYSTEM QTC Calculated (Bezet) 501 ms MUSE SYSTEM Calculated P Gilberts 34 degrees MUSE SYSTEM Calculated R Gilberts 12 degrees MUSE SYSTEM Calculated T Gilberts -173 degrees MUSE SYSTEM INTERPRETATION Normal sinus rhythm Left bundle branch block Abnormal ECG No previous ECGs available Confirmed by MD Salome, Lalit ([id number]) on 07/23/2022 1:19:03 PM MUSE SYSTEM 07/23/2022 12:3 3 PM EDT 07/23/2022 1:19 PM EDT Lalit Mcmahon MD ECG ORDERABLES Performing Organization Address [facility] de Phone Number MUSE SYSTEM * Differential, Automated (07/23/2022 11:55 AM EDT) Neutrophil % 62.6 % [facility] Neutrophil Absolute 4.14 1.70 - 6.10 x10(3)/[facility] Lymph % 27.0 % [facility] Lymphocytes Abs 1.8 0.9 - 3.2 x10(3)/[facility] Monocyte % 7.3 % [facility] Monocyte Abs 0.5 0.3 - 0.9 x10(3)/[facility] Eos % 2.3 % [facility] Eosinophils Abs 0.2 0.0 - 0.4 x10(3)/[facility] Basophil % 0.6 % [facility] Baso Absolute 0.0 0.0 - 0.1 x10(3)/[facility] Immature Gran % 0.20 % [facility] Comment: Immature granulocytes(IG's)percentage and absolute count will include metamyelocytes, myelocytes, and promyelocytes. Blood smears from CBCs yielding IG's will be scanned manually for concordance. If this scan disagrees with the automated IG or if promyelocytes are noted, a manual differential will be performed. Immature Gran Absolute 0.01 0.00 - 0.04 x10(3)/[facility] Blood 07/23/2022 11:5 5 AM EDT 07/23/2022 12:07 PM EDT Narrative Resulting Agency Comment Spec In Lab Lalit Mcmahon MD HEMATOLOGY ORDERABLE S [facility] [place] [address] * Hemogram (07/23/2022 11:55 AM EDT) White Blood Cell 6.6 4.0 - 9.5 x10(3)/[facility] Red Blood Cell 4.50 4.00 - 5.21 x10(6)/[facility] Hemoglobin 13.7 11.7 - 15.5 g/dL [facility] Hematocrit 42.5 35.7 - 45.8 % [facility] Mean Cell Volume 94.4 82.6 - 94.4 fL [facility] Mean Cell Hemoglobin 30.4 27.1 - 32.0 pg [facility] Mean Cell Hemoglobin Concentration 32.2 31.7 - 35.0 g/dL [facility] Platelet 193 145 - 357 x10(3)/[facility] RDW Standard Deviation 45.5 37.0 - 46.0 fL [facility] RDW coefficient of variation 13.2 11.5 - 14.1 % [facility] Mean Platelet Volume 9.5 7.6 - 12.9 fL [facility] NRBC% auto 0.0 % [facility] NRBC Absolute 0.000 0.000 - 0.000 x10(3)/mcL [facility] Blood 07/23/2022 11:5 5 AM EDT 07/23/2022 12:07 PM EDT Narrative Resulting Agency Comment Spec In Lab Lalit Mcmahon MD HEMATOLOGY ORDERABLE S [facility] [address] [place] [address] * (ABNORMAL) BMP w/fasting Glucose (07/23/2022 11:55 AM EDT) Glucose Fasting 110(H) 65 - 99 mg/dL [facility] Comment: ?Fasting* Glucose Interpretive Criteria [...] of Diabetes Mellitus, Position Statement from the [place] [employer]. ??Diabetes Care, Volume 33, Supplement 1, Mar 2009 Blood Urea Nitrogen 23(H) 8 - 18 mg/dL [facility] Creatinine 1.07 0.70 - 1.20 mg/dL [facility] Sodium 141 135 - 145 mmol/L [facility] Potassium 4.8 3.5 - 5.0 mmol/L [facility] Comment: Please note: ??Patients with WBC >100,000 may have falsely elevated Potassium levels. ??For accurate Potassium quantification in these patients send serum separator tube (gold top) for subsequent determinations. ??Contact the Clinical Chemistry Laboratory if there are any questions. Chloride 106 98 - 107 mmol/L [facility] Carbon Dioxide 26 22 - 31 mmol/L [facility] Anion Gap 9 5 - 15 mmol/L [facility] Calcium 9.7 8.5 - 10.5 mg/dL [facility] Est Glomerular Filtration Rate 55(L) >=60 mL/min/1. 73 m?? [facility] Comment: This patient's estimated GFR [...] Mcmahon MD CHEMISTRY ORDERABLES Performing Organization Address [facility] Co de Phone Number [facility] [place] [address] * Prothrombin Time (07/23/2022 11:55 AM EDT) Prothrombin Time 11.7 9.4 - 12.5 sec [facility] International Normalization Ratio 1.0 [facility] Comment: An INR <2.0 indicates [...] MD HEMATOLOGY ORDERABLE S Performing Organization Address City/[facility] Co de Phone Number [facility] [place] [address] documented in this encounter Visit Diagnoses Diagnosis HFrEF (heart failure with reduced ejection fraction)- Primary Left bundle branch block Other left bundle branch block Nonischemic cardiomyopathy Other primary cardiomyopathies Cardiac resynchronization therapy defibrillator (BRICK OR BLOCK MAKER-D) in place Left bundle branch block Other [...] Routine documented in this encounter Care Teams Relocation Counselor Relationship Specialty Start Date End Date Lolly Oliveira MD [address] [place] [address] PCP - General 07/17/13 documented as of this encounter
--- OUTSIDE RECORDS SUMMARY | 2023-11-10 11:49 | XMS_ITS | Encounter Summary ---
Author Organization Replaced By [facility] [place] [address] Care Team Providers Care Spring Coverer Name Role Phone Lolly Oliveira MD Primary Care Provider [phone] Reason for Visit * Reason Comments Follow-up Encounter Details Date Type Department Care Team (Late st Contact Info) Description 07/02/2022 8:00 AM EDT Office Visit Dermatology at [address] [phone] Clay Ramírez MD [address] [facility], [place] [address] Psoriasis, guttate Social History Tobacco Use Types [...] st Contact Info) Description 01/16/2024 10:00 AM [facility] Hospital Encounter [place] [phone] Arrived documented as of this encounter Visit Diagnoses Diagnosis Psoriasis, guttate Other psoriasis documented in this encounter Care Teams Spring Coverer Relationship Specialty Start Date End Date Lolly Oliveira MD [address] [place] [address] PCP - General 07/17/13 documented as of this encounter
--- OUTSIDE RECORDS SUMMARY | 2023-11-10 11:49 | XMS_ITS | Encounter Summary ---
[place] [address] Care Team Providers Care Wellness Specialist Name Role Phone Lolly Oliveira MD Primary Care Provider [phone] Encounter Details Date Type Department Care Team [...] AM EST Hospital Encounter [place] [address] Arrived documented as of this encounter Visit Diagnoses Not on filedocumented in this encounter Care Teams Wellness Specialist Relationship Specialty Start Date End Date Lolly Oliveira MD [address] [place] [address] PCP - General 07/17/13 documented as of this encounter
--- OUTSIDE RECORDS SUMMARY | 2023-11-10 11:49 | XMS_ITS | Encounter Summary ---
Author Organization [facility] [place] [address] Care Team Providers Care Coding Clerks Supervisor Name Role Phone Lolly Oliveira MD Primary Care Provider [phone] Reason for Referral * Diagnostic Test (Routine) - Closed Specialty Diagnoses / Procedures Referred By Contac t Referred To Contact Radiology Diagnoses Left bundle branch block Nonischemic cardiomyopathy Procedures MRI Cardiac Morphology Function With Flow Velocity Quantification wwo Contrast MRI Cardiac Morphology Function wwo Contrast Lalit Mcmahon MD [facility] [place] [address] [place] [address] Referral ID Status Reason Start Date Expiration Date V isits Requested Visits Authorized [id number] Closed Specialty Service Requested 05/06/2022 11/07/2023 2 1 Encounter Details Date Type Department Care Team (Late st Contact Info) Description 05/06/2022 Orders Only Cardiology at [address] [address] Lalit Mcmahon MD [facility] [place] [address] Left bundle branch block; Nonischemic cardiomyopathy Social [...] AM EST Hospital Encounter Non-Invasive [place] [phone] Arrived documented as of this encounter Results [...] who have questions please contact the health critical care clinical nurse specialist that requested your [...] patients who have questions please contactthe health critical care clinical nurse specialist that requested your imaging first. Lalit Mcmahon MD IMG MRI ORDERABLES documented in this encounter Visit Diagnoses Diagnosis Left bundle branch block Other left bundle branch block Nonischemic cardiomyopathy Other primary cardiomyopathies Left bundle branch block Other left bundle branch block Nonischemic cardiomyopathy Other primary cardiomyopathies documented in this encounter Care Teams Coding Clerks Supervisor Relationship Specialty Start Date End Date Lolly Oliveira MD [address] [place] [address] PCP - General 07/17/13 documented as of this encounter
--- OUTSIDE RECORDS SUMMARY | 2023-11-10 11:49 | XMS_ITS | Encounter Summary ---
Author [place] [address] Care Team Providers Care Cpo Name Role Phone Lolly Oliveira MD Primary Care Provider [phone] Encounter Details Date Type Department Care Team [...] AM EST Hospital Encounter Non-Invasive [place] [address] Arrived documented as of this encounter Visit Diagnoses Not on filedocumented in this encounter Care Teams Cpo Relationship Specialty Start Date End Date Lolly Oliveira MD [address] [place] [address] PCP - General 07/17/13 documented as of this encounter
--- OUTSIDE RECORDS SUMMARY | 2023-11-10 11:49 | XMS_ITS | Encounter Summary ---
Author Organization [facility] [place] [address] Care Team Providers Care School Operations Manager Name Role Phone Lolly Oliveira MD Primary Care Provider [phone] Reason for Visit * Reason Comments Skin Check Encounter Details Date Type Department Care Team (Late st Contact Info) Description 11/23/2014 10:00 AM EDT Office Visit Dermatology at [address] [phone] Clay Ramírez MD [address] [facility] [place] [address] Dermatofibroma; Nevus; Solar lentigo Discharge Disposition: Home [facility] [place] [address] Arrived documented as of this encounter Visit Diagnoses Diagnosis Dermatofibroma Benign neoplasm of skin, site unspecified Nevus Benign neoplasm of skin, site unspecified Solar lentigo Other dyschromia documented in this encounter Care Teams School Operations Manager Relationship Specialty Start Date End Date Lolly Oliveira MD [address] [place] [address] PCP - General 07/17/13 documented as of this encounter
--- OUTSIDE RECORDS SUMMARY | 2023-11-10 11:49 | XMS_ITS | Encounter Summary ---
[place] [address] Care Team Providers Care Consulting Senior Practice Director Name Role Phone Lolly Oliveira MD Primary Care Provider [phone] Encounter Details Date Type Department Care Team [...] EST Hospital Encounter Non-Invasive [place] [address] Arrived documented as of this encounter Visit Diagnoses Not on filedocumented in this encounter Care Teams Consulting Senior Practice Director Relationship Specialty Start Date End Date Lolly Oliveira MD [address] [place] [address] PCP - General 07/17/13 documented as of this encounter
--- OUTSIDE RECORDS SUMMARY | 2023-11-10 11:49 | XMS_ITS | Encounter Summary ---
Author Organization [facility] [place] [address] Care Team Providers Care Community Program Assistant Name Role Phone Lolly Oliveira MD Primary Care Provider [phone] Reason for Visit * Reason Comments Follow-up 8 weeks UVB treatmen t twice weekly Encounter Details Date Type Department Care Team (Late st Contact Info) Description 07/19/2023 11:00 AM EDT Office Visit Dermatology at [address] [phone] Clay Ramírez MD [address] [facility] A DERMATOLOGY [place], [place] [phone] Psoriasis Social History Tobacco Use Types Packs/Day [...] 8 weeks of twice weekly narrowband UVB. uLna follows up after restarting on narrowband UVB [facility] [place] [address] Arrived documented as of this encounter Visit Diagnoses Diagnosis Psoriasis Other psoriasis documented in this encounter Care Teams Community Program Assistant Relationship Specialty Start Date End Date Lolly Oliveira MD [address] [place] [address] PCP - General 07/17/13 documented as of this encounter
--- OUTSIDE RECORDS SUMMARY | 2023-11-10 11:50 | XMS_ITS | Encounter Summary ---
Author Organization [facility] [place] [address] Care Team Providers Care Point Of Care Specialist Name Role Phone Unavailable Primary Care Provider Unavailabl e Encounter Details Date Type Department Care Team (Late st Contact Info) Description 07/04/2012 [place] [phone] Eleno Christian MD [facility] [place] [address] Social History Tobacco Use Types Packs/Day Years [...] AM EST Hospital Encounter Non-Invasive [place] [phone] Arrived documented as of this encounter Procedures [...] is a Non-reportable exam Eleno Christian MD [facility] FILM LIBRARY ORD ERABLES documented in this encounter Visit Diagnoses Not on filedocumented in this encounter
--- OUTSIDE RECORDS SUMMARY | 2023-11-10 11:50 | XMS_ITS | Encounter Summary ---
Author Organization [facility] [place] [address] Care Team Providers Care Supervisor Engine Repair Name Role Phone Lolly Oliveira MD Primary Care Provider [phone] Encounter Details Date Type Department Care Team (Latest Contact Info) Description 07/18/2013 Orders [place] [phone] Alia Fraire MD [facility] [place] [address] Mammographic microcalcification (Primary Dx) Social History Tobacco [...] AM EST Hospital Encounter Non-Invasive [place] [address] Arrived documented as of this encounter Results [...] are present on specimen digital X-ray. A ServiceRelatedrk Eviva-Stereo 13 Cylinder marker clip was placed. [...] calcifications are present on specimendigital X-ray. A ServiceRelatedrk Eviva-Stereo 13 Cylinder marker clip was placed. [...] not layer and, therefore, are not territory service representative of milk of calcium. Again, [...] not layer and, therefore, are not territory service representative of milk of calcium. Again, these have an amorphous andpunctate appearance and remain indeterminate. Stereotactic guided biopsy isrecommended. Alia Fraire MD IMG MAMMO ORDERABLES documented in this encounter Visit Diagnoses Diagnosis Mammographic microcalcification- Primary Mammographic microcalcification Mammographic microcalcification Mammographic microcalcification Mammographic microcalcification documented in this encounter Care Teams Supervisor Engine Repair Relationship Specialty Start Date End Date Lolly Oliveira MD [address] [place] [address] PCP - General 07/17/13 documented as of this encounter
--- OUTSIDE RECORDS SUMMARY | 2023-11-10 11:50 | XMS_ITS | Encounter Summary ---
Author Organization [facility] [place] [address] Care Team Providers Care Talent Rep Name Role Phone Lolly Oliveira MD Primary Care Provider [phone] Encounter Details Date Type Department Care Team (Latest Contact Info) Description 07/20/2013 9:26 AM EDT - 07/20/2013 11:59 PM EDT Hospital En[place] [address] CLINIC, Lolly So MD [address] [place], [place] [id number] Mammographic microcalcification Discharge Disposition: Home Social History [...] AM EST Hospital Encounter Non-Invasive [place] [address] Arrived documented as of this encounter Procedures [...] does not layer and, therefore, are not assisted sales representative of milk of calcium. Again, [...] does not layer and, therefore, are not assisted sales representative of milk of calcium. Again, these have an amorphous andpunctate appearance and remain indeterminate. Stereotactic guided biopsy isrecommended. Alia Fraire MD IMG MAMMO ORDERABLES documented in this encounter Visit Diagnoses Diagnosis Mammographic microcalcification documented in this encounter Care Teams Talent Rep Relationship Specialty Start Date End Date Lolly Oliveira MD [address] [place] [address] PCP - General 07/17/13 documented as of this encounter
--- OUTSIDE RECORDS SUMMARY | 2023-11-10 11:50 | XMS_ITS | Encounter Summary ---
Author Organization [facility] [place] [address] Care Team Providers Care Field Services Manager Name Role Phone Lolly Oliveira MD Primary Care Provider [phone] Encounter Details Date Type Department Care Team (Latest Contact Info) Description 07/26/2013 9:45 AM EDT - 07/26/2013 11:59 PM EDT Hospital Encounter [place] [address] Mammographic microcalcification Social History Tobacco Use Types [...] AM EST Hospital Encounter Non-[place] [address] Arrived documented as of this encounter Procedures [...] microcalcification documented in this encounter Care Teams Field Services Manager Relationship Specialty Start Date End Date Lolly Oliveira MD [address] [place] [address] PCP - General 07/17/13 documented as of this encounter
--- OUTSIDE RECORDS SUMMARY | 2023-11-10 11:50 | XMS_ITS | Encounter Summary ---
Author Organization [facility] [place] [address] Care Team Providers Care Plant Changer Name Role Phone Unavailable Primary Care Provider Unavailabl e Encounter Details Date Type Department Care Team (Late st Contact Info) Description 07/14/2013 External Results XRay at [address] [place] [address] Provider, Scanning Social History Tobacco Use Types [...] AM EST Hospital Encounter Non-Invasive Cardiology Lab [facility] [place] [address] Arrived documented as of this encounter Procedures [...]
--- OUTSIDE RECORDS SUMMARY | 2023-11-10 11:50 | XMS_ITS | Encounter Summary ---
Author Organization [facility] [place] [address] Care Team Providers Care Parking Enforcement Manager Name Role Phone Lolly Oliveira MD Primary Care Provider [phone] Encounter Details Date Type Department Care Team (Late st Contact Info) Description 06/29/2011 [place] [address] Eleno Christian MD [facility] [place] [address] Social History Tobacco Use Types Packs/Day Years [...] Encounter Non-[place] [address] Arrived documented as of this encounter Procedures [...] is a Non-reportable exam Eleno Christian MD [facility] FILM LIBRARY ORD ERABLES documented in this encounter Visit Diagnoses Not on filedocumented in this encounter Care Teams Parking Enforcement Manager Relationship Specialty Start Date End Date Lolly Oliveira MD [address] [place] [address] PCP - General 07/17/13 documented as of this encounter
--- OUTSIDE RECORDS SUMMARY | 2023-11-10 11:50 | XMS_ITS | Encounter Summary ---
[place] [address] Care Team Providers Care Photolith Operator Name Role Phone Lolly Oliveira MD Primary Care Provider [phone] Encounter Details Date Type Department Care Team (Late st Contact Info) Description 07/17/2013 Orders [place] [address] Lolly Oliveira MD [address] [place], [place] [phone] Social History Tobacco Use Types Packs/Day Years [...] AM EST Hospital Encounter Non-Invasive [place] [address] Arrived documented as of this encounter Procedures Procedure Name Priority Date/Time Associated Diagnosis Comments REQUEST FOR 2ND READ MAMMO Routine 07/17/2013 8:45 AM EDT documented in this encounter Results * Request for 2nd read Mammo (07/17/2013 8:45 AM EDT) Anatomical Region Laterality Modality Other 07/17/2013 8:45 AM EDT Narrative 07/17/2013 3:57 PM EDT INTERPRETATION OF OUTSIDE MAMMOGRAMS (PERFORMED ON 07/06/13 AND 07/14/13) FROM [facility] DATED 07/17/13: ?? DIAGNOSTIC IMAGING SUMMARY: [...] OUTSIDE MAMMOGRAMS (PERFORMED ON 07/06/13 AND 07/14/13) [facility] DATED 07/17/13: DIAGNOSTIC IMAGING SUMMARY: RIGHT [...] on filedocumented in this encounter Care Teams Photolith Operator Relationship Specialty Start Date End Date Lolly Oliveira MD [address] [place] [address] PCP - General 07/17/13 documented as of this encounter
--- OUTSIDE RECORDS SUMMARY | 2023-11-10 11:50 | XMS_ITS | Encounter Summary ---
Author Organization [facility] [place] [address] Care Team Providers Care Neck Band Setter Name Role Phone Unavailable Primary Care Provider Unavailabl e Encounter Details Date Type Department Care Team (Late st Contact Info) Description 07/14/2013 Orders [place] [address] Eleno Christian MD [facility] DIAGNOSTIC [place] [address] Social History Tobacco Use Types Packs/Day Years [...] AM EST Hospital Encounter Non-[place] [address] Arrived documented as of this encounter Visit Diagnoses Not on filedocumented in this encounter
--- OUTSIDE RECORDS SUMMARY | 2023-11-10 11:50 | XMS_ITS | Encounter Summary ---
Author Organization [facility] [place] [address] Care Team Providers Care Adobe Flex Developer Name Role Phone Lolly Oliveira MD Primary Care Provider [phone] Encounter Details Date Type Department Care Team (Latest Contact Info) Description 07/17/2013 8:40 AM EDT - 07/17/2013 11:59 PM EDT Hospital Encounter XRay at [address] [place] [address] CLINIC, DR [facility] Discharge Disposition: Home Social [...] AM EST Hospital Encounter Non-Invasive [place] [address] Arrived documented as of this encounter Visit Diagnoses Not on filedocumented in this encounter Care Teams Adobe Flex Developer Relationship Specialty Start Date End Date Lolly Oliveira MD [address] [place] [address] PCP - General 07/17/13 documented as of this encounter
--- OUTSIDE RECORDS SUMMARY | 2023-11-10 11:50 | XMS_ITS | Encounter Summary ---
Author Organization [place] [address] Care Team Providers Care Traffic Rate Analyst Name Role Phone Lolly Oliveira MD Primary Care Provider [phone] Encounter Details Date Type Department Care Team (Latest Contact Info) Description 07/26/2013 9:44 AM EDT - 07/26/2013 11:59 PM EDT Hospital Encounter [place] [address] CLINIC, Lolly So MD [address] [place], [place] [id number] Mammographic microcalcification Discharge Disposition: Home Social History [...] AM EST Hospital Encounter Non-[place] [address] Arrived documented as of this encounter Procedures [...] are present on specimen digital X-ray. A Cabara-Stereo 13 Cylinder marker clip was placed. Cranio-caudal [...] mLs documented in this encounter Care Teams Traffic Rate Analyst Relationship Specialty Start Date End Date Lolly Oliveira MD [address] [place] [address] PCP - General 07/17/13 documented as of this encounter
--- OUTSIDE RECORDS SUMMARY | 2023-11-17 10:47 | XMS_ITS | Encounter Summary ---
Author Organization [facility] [place] [address] Care Team Providers Care Tug Hand Name Role Phone Lolly Oliveira MD Primary Care Provider Encounter Details Date Type Department Care Team (Late st Contact Info) Description 05/18/2023 Refill Dermatology at [address] [address] Nora Meredith LPN Social History [...] patient. She voiced understanding. Order sent to [facility] drug. documented in this encounter Plan of Treatment Upcoming Encounters Date Type Department Care Team (Late st Contact Info) Description 01/16/2024 10:00 AM EST Hospital Encounter Non-Invasive [place] [address] Arrived documented as of this encounter Visit Diagnoses Not on filedocumented in this encounter Care Teams Tug Hand Relationship Specialty Start Date End Date Lolly Oliveira MD [address] [place] [address] PCP - General 07/17/13 documented as of this encounter
--- OUTSIDE RECORDS SUMMARY | 2023-11-17 10:47 | XMS_ITS | Encounter Summary ---
Author Organization [facility] Address [facility] [place] [address] Care Team Providers Care Lacquer Mixer Name Role Phone Lolly Oliveira MD Primary Care Provider [phone] Reason for Referral * Diagnostic Test (Routine) - Closed Specialty Diagnoses / Procedures Referred By Contkoik t Referred To Contact Cardiology Diagnoses Nonischemic cardiomyopathy Biventricular ICD (implantable cardioverter-defibrillator) in place Procedures Echocardiogram Transthoracic Lalit Mcmahon MD [facility] [place] [address] Referral ID Status Reason Start Date Expiration Date V isits Requested Visits Authorized [id number] Closed Specialty Service Requested 03/15/2023 09/11/2023 1 1 Encounter Details Date Type Department Care Team (Late st Contact Info) Description 03/15/2023 Orders Only Cardiology at [address] [address] Lalit Mcmahon MD [facility] [place] [address] Nonischemic cardiomyopathy; Biventricular ICD (implantable cardioverter-defibrill ator) in place Social History Tobacco Use Types Packs/Day Years Used Date Smoking Tobacco: Never Alcohol Use Standard Drinks/Week Comments Not Currently 0 (1 standard drink = 0.6 oz pur e alcohol) [facility] Inpatient Questions Answer Date Recorded Does [...] AM EST Hospital Encounter Non-[place] [address] Arrived Scheduled Orders Name Type Priority Associated Diagnoses Order Schedule Echocardiogram Transthoracic Echocardiography Routine Nonischemic cardiomyopathy Biventricular ICD (implantable cardioverter-defibr illator) in place Expected: 05/05/2023, Expires: 11/04/2023 documented as of this encounter Visit Diagnoses Diagnosis Nonischemic cardiomyopathy Other primary cardiomyopathies Biventricular ICD (implantable cardioverter-defibrillator) in place documented in this encounter Care Teams Lacquer Mixer Relationship Specialty Start Date End Date Lolly Oliveira MD [address] [place] [address] PCP - General 07/17/13 documented as of this encounter
--- OUTSIDE RECORDS SUMMARY | 2023-11-17 10:47 | XMS_ITS | Encounter Summary ---
Author Organization [facility] [place] [address] Care Team Providers Care Golf Club Facer Name Role Phone Lolly Oliveira MD Primary Care Provider [phone] Encounter Details Date Type Department Care Team (Late st Contact Info) Description 03/15/2023 Telephone Cardiology at [address] [address] Saranya Ma Social History Tobacco Use Types Packs/Day Years Used Date Smoking Tobacco: Never Alcohol Use Standard Drinks/Week Comments Not Currently 0 (1 standard drink = 0.6 oz pur e alcohol) [facility] Inpatient Questions Answer Date Recorded Does Anyone [...] her to have an echo done at [facility] prior to her appt withmsm there on 05/12/23. Message sent to Dr. Mcmahon asking him to put order in if he would like her to have this done. Saranya Ma Sr. Clinical Procedure Burn Table Operator/Transformer Coil Winder documented in this encounter Plan of Treatment Upcoming Encounters Date Type Department Care Team (Late st Contact Info) Description 01/16/2024 10:00 AM EST Hospital Encounter Non-[place] [address] Arrived documented as of this encounter Visit Diagnoses Not on filedocumented in this encounter Care Teams Golf Club Facer Relationship Specialty Start Date End Date Lolly Oliveira MD [address] [place] [address] PCP - General 07/17/13 documented as of this encounter
--- OUTSIDE RECORDS SUMMARY | 2023-11-17 10:47 | XMS_ITS | Encounter Summary ---
Author Organization [facility] [place] [address] Care Team Providers Care Spout Tender Name Role Phone Lolly Oliveira MD Primary Care Provider [phone] Encounter Details Date Type Department Care Team (Late st Contact Info) Description 05/18/2023 Telephone Dermatology at [address] [address] Nora Meredith LPN Social History [...] st Contact Info) Description 01/16/2024 10:00 AM [facility] Hospital Encounter Non[place] [address] Arrived documented as of this encounter Visit Diagnoses Not on filedocumented in this encounter Care Teams Spout Tender Relationship Specialty Start Date End Date Lolly Oliveira MD [address] [place] [address] PCP - General 07/17/13 documented as of this encounter
--- OUTSIDE RECORDS SUMMARY | 2023-11-17 10:47 | XMS_ITS | Encounter Summary ---
Author Organization [facility] Address [address] [place] [address] Care Team Providers Care Production Operations Inspector Name Role Phone Lolly Oliveira MD Primary Care Provider [phone] Encounter Details Date Type Department Care Team (Late st Contact Info) Description 04/01/2005 Results Only [facility] - [facility] conversion [address] [place] [address] Blair Dukes MD [address] [place] [phone] Social History Tobacco Use Types Packs/Day Years [...] ? JING ALVARENGA ? Accession #: ? [id number] ? : ? 1950 (Age: 54) ??F [...] (A). Received in [place]' s fixative labelled [place] and #2 ??transverse colon bx is a single 0.2 x 0.2 x 0.2 cm tissue, submitted intact as (B). ??(Dr. Lechuga)/[facility] End of Report [facility] 04/01/2005 04/02/2005 15: 24 EST Blair Dukes MD PATHOLOGY ORDERABLES [facility] [address] [place] [address] documented in this encounter Visit Diagnoses Not on filedocumented in this encounter Care Teams Production Operations Inspector Relationship Specialty Start Date End Date Lolly Oliveira MD [address] [place] [address] PCP - General 11/13/08 documented as of this encounter
--- OUTSIDE RECORDS SUMMARY | 2023-11-17 10:47 | XMS_ITS | Encounter Summary ---
Author Organization [facility] Address [address] [place] [address] Care Team Providers Care Food Taster Name Role Phone Lolly Oliveira MD Primary Care Provider [phone] Encounter Details Date Type Department Care Team (Late st Contact Info) Description 04/17/2005 Results Only [facility] - [facility] conversion [address] [place] [address] Lolly Oliveira MD [address] [place], [place] [phone] Social History Tobacco Use Types Packs/Day Years [...] ? JING ALVARENGA ? Accession #: ? [id number] : ? 1950 (Age: 54) ??F ?Collect Date: ? 04/17/2005 Location: ? [facility] ? Receive Date: ? 04/21/2005 Provider: ?LOLLY OLIVEIRA MD Copy to: ? Specimen/Source: ?ThinPrep Pap Test, Cervix/Endocervix, processed on [employer]ix DataPrep Imaging System, with manual evaluation Last Menstrual [...] Oliveira MD PATHOLOGY ORDERABLES [facility] [address] [place] [address] documented in this encounter Visit Diagnoses Not on filedocumented in this encounter Care Teams Food Taster Relationship Specialty Start Date End Date Lolly Oliveira MD [address] [place] [address] PCP - General 11/13/08 documented as of this encounter
--- OUTSIDE RECORDS SUMMARY | 2023-11-17 10:47 | XMS_ITS | Encounter Summary ---
Author Organization [facility] Address [address] [place] [address] Care Team Providers Care Metal Bonding Helper Name Role Phone Lolly Oliveira MD Primary Care Provider [phone] Encounter Details Date Type Department Care Team (Late st Contact Info) Description 03/06/2003 Results Only [facility] [place] conversion [address] [place] [address] Lolly Oliveira MD [address] [place], [place] [phone] Social History Tobacco Use Types Packs/Day Years [...] Oliveira MD PATHOLOGY ORDERABLES Performing Organization Address City/State[facility] Co de Phone Number [facility] [address] [place] [address] documented in this encounter Visit Diagnoses Not on filedocumented in this encounter Care Teams Metal Bonding Helper Relationship Specialty Start Date End Date Lolly Oliveira MD [address] [place] [address] PCP - General 11/13/08 documented as of this encounter
--- OUTSIDE RECORDS SUMMARY | 2023-11-17 10:47 | XMS_ITS | Encounter Summary ---
Author Organization [facility] [place] [address] Care Team Providers Care Lav Crewman Name Role Phone Lolly Oliveira MD Primary Care Provider [phone] Encounter Details Date Type Department Care Team (Latest Contact Info) Description 07/20/2023 10:00 AM EDT - 07/20/2023 11:59 PM EDT Hospital Encounter [place] [address] Discharge Disposition: Home Social History Tobacco Use [...] with spacer fluticasone propionate (Flonase) 50 mcg/actuation [place], Suspension 1 spray by Each Nare route daily as needed. documented as of this encounter Plan of Treatment Upcoming Encounters Date Type Department Care Team (Late st Contact Info) Description 01/16/2024 10:00 AM [facility] Hospital Encounter Non[place] [address] Arrived documented as of this encounter Procedures [...] on filedocumented in this encounter Care Teams Lav Crewman Relationship Specialty Start Date End Date Lolly Oliveira MD [address] [place] [address] PCP - General 07/17/13 documented as of this encounter
--- OUTSIDE RECORDS SUMMARY | 2023-11-17 10:47 | XMS_ITS | Encounter Summary ---
Author Organization [facility] Address [address] [place] [address] Care Team Providers Care Software Engineer Sales Name Role Phone Lolly Oliveira MD Primary Care Provider [phone] Encounter Details Date Type Department Care Team (Late st Contact Info) Description 05/02/2004 Results Only [facility] - [place] conversion [address] [place] [address] Lolly Oliveira MD [address] [place], [place] [phone] Social History Tobacco Use Types Packs/Day Years [...] 68. [facility] Report Status Final [id number] [facility] 05/02/2004 9:32 EST 05/10/2004 9:32 EST Lolly Oliveira MD MICROBIOLOGY - GENER AL ORDERABLES [facility] [address] [place] [address] * CYTOPATHOLOGY (05/02/2004 0:00 EST) Pathology Report: CYTOPATHOLOGY REPORT Reports generated via electronic interface contain original data; however they are lacking the format of the original report. Caution should be taken when reading/interpreti ng unformatted reports. Name: ? JING ALVARENGA ? Accession #: ? [id number] : ? 1950 (Age: 53) ??F ?Collect [...] de Phone Number [facility] [address] [place] [address] documented in this encounter Visit Diagnoses Not on filedocumented in this encounter Care Teams Software Engineer Sales Relationship Specialty Start Date End Date Lolly Oliveira MD [address] [place] [address] PCP - General 11/13/08 documented as of this encounter
--- OUTSIDE RECORDS SUMMARY | 2023-11-17 10:47 | XMS_ITS | Encounter Summary ---
Author Organization [facility] [place] [address] Care Team Providers Care Photographer'S Assistant Name Role Phone Lolly Oliveira MD Primary Care Provider [phone] Reason for Visit * Reason Comments Follow-up 8 weeks UVB treatmen t twice weekly Encounter Details Date Type Department Care Team (Late st Contact Info) Description 07/19/2023 11:00 AM EDT Office Visit Dermatology at [address] [phone] Clay Ramírez MD [address], [place]RIKA A DERMATOLOGY [place], [place] [phone] Psoriasis Social History Tobacco Use Types Packs/Day [...] [facility] Hospital Encounter Non-Invasive [place] [address] Arrived documented as of this encounter Visit Diagnoses Diagnosis Psoriasis Other psoriasis documented in this encounter Care Teams Photographer'S Assistant Relationship Specialty Start Date End Date Lolly Oliveira MD [address] [place] [address] PCP - General 07/17/13 documented as of this encounter
--- OUTSIDE RECORDS SUMMARY | 2023-11-17 10:47 | XMS_ITS | Encounter Summary ---
Author Organization [facility] Address [address] [place] [address] Care Team Providers Care Harness Tier Name Role Phone Lolly Oliveira MD Primary Care Provider [phone] Encounter Details Date Type Department Care Team (Late st Contact Info) Description 06/16/2012 Results Only [facility] - [facility] [address] [place], [place] [id number] Lolly Oliveira MD [address] [place], [place] [phone] Social History Tobacco Use Types Packs/Day Years [...] ? JING ALVARENGA ? Accession #: ? [id number] : ? 1950 (Age: 61) ??F ?Collect [...] Report Date: ??06/21/2012 11:04 End of Report [facility] 06/16/2012 06/17/2012 Lolly Oliveira MD PATHOLOGY ORDERABLES [facility] [address] [place] [address] documented in this encounter Visit Diagnoses Not on filedocumented in this encounter Care Teams Harness Tier Relationship Specialty Start Date End Date Lolly Oliveira MD [address] [place] [address] PCP - General 11/13/08 documented as of this encounter
--- OUTSIDE RECORDS SUMMARY | 2023-11-17 10:47 | XMS_ITS | Clinical Summary ---
Author Organization [facility] [place] [address] Care Team Providers Care Web Coordinator Name Role Phone Lolly Oliveira MD Primary Care Provider [phone] Allergies Active Allergy Reactions Criticality Noted Date [...] spacer Active fluticasone propionate (Flonase) 50 mcg/actuation [place], Suspension 1 spray by Each Nare route [...] PM EDT Hospital Encounter [place] [address] Discharge Disposition: Home from Last [...] Hospital Encounter [place] [address] Arrived Health Maintenance Due Date Last Done [...] 2013 Covid-19 Vaccine (1 - 2022- season) 2023 Influenza (Flu) vaccine (1 o f 1 - Influenza standard series) 11/07/2023 Medical Devices Implanted Type Area Band Bias Machine Operator Device Identifier Shelf Expiration Date Model / Serial / Lot Bsx: [id number]: 521111-7/18/2 023 Implanted: by Lalit Mcmahon MD (Quantity not on file) Defibrillator Chest Wall [employer] [id number] / [id number] / Bsx: [id number]: [id number]/18/2 023 Implanted: by Lalit Mcmahon MD (Quantity not on file) Lead Heart [employer] 4674 / [id number] / Bsx: [id number]: [id number] Implanted: by Lalit Mcmahon MD (Quantity not on file) Lead Heart [employer] 7841 / [id number] / Bsx: [id number]: 844085-3/18/2 023 Implanted: by Lalit Mcmahon MD (Quantity not on file) Lead Heart [employer] 0672 / [id number] / Procedures Procedure Name Priority Date/Time Associated [...] Status decision made by: Patient Care Teams Web Coordinator Relationship Specialty Start Date End Date Lolly Oliveira MD [address] [place] [address] PCP - General 07/17/13
--- OUTSIDE RECORDS SUMMARY | 2023-11-17 10:47 | XMS_ITS | Referral Summary ---
Author Organization [facility] Address [address] [place] [address] Care Team Providers Care Continuous Pillowcase Cutter Name Role Phone Lolly Oliveira MD Primary Care Provider [phone] Social History Tobacco Use Types Packs/Day Years Used Date Smoking Tobacco: Never Assessed Sex and Gender Information Value Date Recorded Sex Assigned at Not on file Gender Identity Not on file Sexual Orientation Not on file Plan of Treatment Not on file Care Teams Continuous Pillowcase Cutter Relationship Specialty Start Date End Date Lolly Oliveira MD [address] [place] [address] PCP - General 11/13/08
--- OUTSIDE RECORDS SUMMARY | 2023-11-17 10:47 | XMS_ITS | Encounter Summary ---
Author Organization [facility] Address [address] [place] [address] Care Team Providers Care Product Support Representative Name Role Phone Lolly Oliveira MD Primary Care Provider [phone] Encounter Details Date Type Department Care Team (Late st Contact Info) Description 03/21/2019 Lab Requisition [facility]ology & Laboratory Medicine - [address] [address] Unknown, Provider, Social History Tobacco Use Types [...] 211 - 911 pg/mL 03/22/2019 11:52 EST [facility] Blood VENOUS BLOOD / Unknown 03/16/2019 9:25 EST 03/21/2019 21:35 EST Provider Unknown CHEMISTRY & BLOOD GA S ORDERABLES [facility] [address] [place] [address] documented in this encounter Visit Diagnoses Not on filedocumented in this encounter Care Teams Product Support Representative Relationship Specialty Start Date End Date Lolly Oliveira MD [address] [place] [id number] PCP - General 11/13/08 documented as of this encounter
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
--- OUTSIDE RECORDS SUMMARY | 2023-11-17 10:47 | XMS_ITS | Encounter Summary ---
Author Organization [facility] [place] [address] Care Team Providers Care Microfilming Document Preparer Name Role Phone Lolly Oliveira MD Primary Care Provider [phone] Encounter Details Date Type Department Care Team (Late st Contact Info) Description 05/03/2023 Telephone Cardiology at [address] [phone] Lalit Mcmahon MD [facility] [place] [address] Social History Tobacco Use Types Packs/Day Years Used Date Smoking Tobacco: Never Alcohol Use Standard Drinks/Week Comments Not Currently 0 (1 standard drink = 0.6 oz pur e alcohol) [facility] Inpatient Questions Answer Date Recorded [...] AM EST Hospital Encounter Non-[place] [address] Arrived documented as of this encounter Visit Diagnoses Not on filedocumented in this encounter Care Teams Microfilming Document Preparer Relationship Specialty Start Date End Date Lolly Oliveira MD [address] [place] [address] PCP - General 07/17/13 documented as of this encounter
--- OUTSIDE RECORDS SUMMARY | 2023-11-17 10:47 | XMS_ITS | Data Portability ---
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 100 mcg/0.5mL dose or 50 mcg/0.25mL dose 07/09/2021 completed Not Available [facility] 01/15/2023 04:53:43 COVID-19 vaccine, vector-nr, rS-Ad26, PF, 0.5 mL 05/02/2020 completed Not Available [facility] 01/15/2023 04:53:44 SARS-COV-2 (COVID-19) vaccine, UNSPECIFIED 05/31/2020 completed Not Available [facility] 01/15/2023 04:53:44 SARS-COV-2 (COVID-19) vaccine, UNSPECIFIED 01/03/2021 completed Not Available [facility] 01/15/2023 04:53:44 pneumococcal polysaccharide PPV23 07/05/2014 completed Not Available [facility] 2022 04:53:45 Hep B, unspecified formulation 04/14/1993 completed Not Available [facility] 01/15/2023 04:53:45 Hep B, unspecified formulation 09/30/1992 completed Not Available [facility] 01/15/2023 04:53:46 Hep B, unspecified formulation 10/31/1992 completed Not Available [facility] 01/15/2023 04:53:46 influenza, unspecified formulation 12/11/2009 completed Not Available [facility] 01/15/2023 04:53:47 influenza, unspecified formulation 12/13/2012 completed Not Available [facility] 01/15/2023 04:53:47 influenza, unspecified formulation 12/18/2008 completed Not Available [facility] 01/15/2023 04:53:47 influenza, unspecified formulation 12/19/2010 completed Not Available [facility] 01/15/2023 04:53:47 influenza, unspecified formulation 12/30/2006 completed Not Available [facility] 01/15/2023 04:53:48 influenza, unspecified formulation 01/09/2014 completed Not Available [facility] 01/15/2023 04:53:48 influenza, unspecified formulation 01/26/2008 completed Not Available [facility] 01/15/2023 04:53:48 influenza, unspecified formulation 02/16/2012 completed Not Available [facility] 01/15/2023 04:53:48 Influenza, high-dose, quadrivalent, PF 12/17/2022 completed Not Available [facility] 03/19/2023 05:33:03 COVID-19, mRNA, LNP-S, PF, herminio-sucrose, 30 mcg/0.3 mL 12/28/2022 completed Not Available [facility] 03/19/2023 05:33:03 Past Encounters Encounter ID Performer Location Encounter Start Date Encounter Closed Date Diagnosis/Indication Diagnosis SNOMED-CT Code Diagnosis ICD10 Code [id number] JU CORTEZ MD [address] [address] 05/21/2023 10:03:54 05/21/2023 11:37:49 Onychomycosis 988532665 B35.1 Asthma 681552382 J45.90 9 Cardiomyopathy 99914327 I10 Disorder of hip joint 42 6648577 M12.859 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 Hyperlipidemia 48199303 E78.5 Vulval and /or perineal noninflammatory disorders 176021467 N90.9 Adult heal th examination 840597190 Z00.[id number] [place] [address] 09/01/2023 10:23:16 09/01/2023 13:28:10 Vertigo 011548267 R42 Impacted c erumen of bilateral ears 6407930417 376852 H61.23 Health Concerns Section Related Observation LastModified by Organization Detai ls LastModified Time None Recorded Concern Status LastModified by Organization Details LastModified Time None Recorded Advance Directives Directive None Recorded Payers Encounter Date Sequence Insurance Name Policy Number Policy Lema Covered Member ID Lema Member ID Guarantor Name 05/21/2023 1 [id number]ANT[place] - [place]PO) [id number] Luna Barber Mott [id number] Luna Barber Mott 09/01/2023 1 [place] - [place]) [id number] Luna Mott [id number] Luna Mott Notes Date Note Type Note Provider Name and Address Organization Details Recorded Time 05/21/2023 text/html HPI Notes: Thais here today for an annual wellness exam MD [address], [place], [address], [facility], [facility]. 05/24/2023 18:32:35 09/01/2023 text/html HPI Notes: [...] it. JESSICA INGRAM PA-C [address], [place], [address], [facility]. 09/01/2023 13:55:07 OBGyn Episode No OBEpisode recorded.
--- OUTSIDE RECORDS SUMMARY | 2023-11-17 10:47 | XMS_ITS | Encounter Summary ---
Author Organization [facility] Address [address] [place] [address] Care Team Providers Care Optical Instrument Specialist Name Role Phone Lolly Oliveira MD Primary Care Provider [phone] Encounter Details Date Type Department Care Team (Late st Contact Info) Description 05/27/2021 Lab Requisition [facility] Pathology & Laboratory Medicine - [address] [address] Iman Moran, DO [address] [place], [place] [id number] Encounter for other general examination Social History [...] management options, if applicable. 05/30/2021 13:31 EDT [facility] Final Diagnosis A. COLON, POLYP AT 90 CM, BIOPSY/POLYPECTOM Y: - Tubular adenoma. 05/30/2021 13:31 [facility] Attestation By the signature below, the attending physician certifies that they have 1) personally conducted a gross and/or microscopic examination of the described specimen(s), and/or personally interpreted the results of laboratory testing of the described specimen(s), and 2) personally rendered or confirmed the above diagnosis. 05/30/2021 13:31 [facility] at 1331 Clinical History Severe diverticula and polypectomy x1 05/30/2021 13:31 [facility] Gross Description A. Received in formalin labelled with proper patient identification (initials J, K) and colon polyp x1 at 90 cm is a light pineda polypoid tissue measuring 0.2 x 0.2 x 0.2 cm. Submitted intact in A1. MICKEY CARLOS(ASCP) 05/27/2021 19:11 05/30/2021 13:31 [facility] Performing Lab [facility] 05/30/2021 13:31 [facility] Scanned Images 05/30/2021 13:31 [facility] Tissue ENTIRE COLON / Unknown 05/27/2021 11:23 EDT 05/27/2021 16:33 EDT Iman Moran DO PATHOLOGY ORDERABLES [facility] [address] [place] [address] documented in this encounter Visit Diagnoses Diagnosis Encounter for other general examination documented in this encounter Care Teams Optical Instrument Specialist Relationship Specialty Start Date End Date Lolly Oliveira MD [address] [place] [address] PCP - General 11/13/08 documented as of this encounter
--- OUTSIDE RECORDS SUMMARY | 2023-11-17 10:47 | XMS_ITS | Encounter Summary ---
Author Organization [facility] Address [address] [place] [address] Care Team Providers Care Director Of Operations For Therapy Name Role Phone Lolly Oliveira MD Primary Care Provider [phone] Encounter Details Date Type Department Care Team (Late st Contact Info) Description 04/25/2009 Orders Only [facility] Laboratory Services - [facility] ([facility]) [address] [place], [place] [id number] Lolly Oliveira MD [address] [place], [place] [id number] Social History Tobacco Use Types Packs/Day Years [...] ? JING ALVARENGA ? Accession #: ? [id number] ? : ? 1950 (Age: 58) ??F [...] reviewed and electronically signed by: ? Helena Wallkill, [place](ASCP) ? Report Date: ??04/29/2009 10:38 ? End of Report ? TOVA BLANCO 04/25/2009 04/26/2009 Lolly Oliveira MD PATHOLOGY ORDERABLES [facility] S[facility] [address] [place] [address] documented in this encounter Visit Diagnoses Not on filedocumented in this encounter Care Teams Director Of Operations For Therapy Relationship Specialty Start Date End Date Lolly Oliveira MD [address] [place] [address] PCP - General 11/13/08 documented as of this encounter
--- OUTSIDE RECORDS SUMMARY | 2023-11-17 10:47 | XMS_ITS | Encounter Summary ---
Author Organization [facility] Address [address] [place] [address] Care Team Providers Care Biomedical Equipment Specialist Name Role Phone Lolly Oliveira MD Primary Care Provider [phone] Encounter Details Date Type Department Care Team (Late st Contact Info) Description 04/12/2007 Results Only [facility] - Early conversion [address] [place] [address] Lolly Oliveira MD [address] [place], [place] [id number] Social History Tobacco Use Types Packs/Day Years [...] ? JING ALVARENGA ? Accession #: ? [id number] : ? 1950 (Age: 56) ??F ?Collect Date: ? 04/12/2007 Location: ? [facility] ? Receive Date: ? 04/13/2007 Provider: ?LOLLY OLIVEIRA MD Copy to: ? Specimen/Source: ?ThinPrep Pap Test, Cervix/Endocervix, processed on [employer] ThinPrep Imaging System, with manual evaluation Last [...] Oliveira MD PATHOLOGY ORDERABLES TOVA BLANCO [address] [place] [address] documented in this encounter Visit Diagnoses Not on filedocumented in this encounter Care Teams Biomedical Equipment Specialist Relationship Specialty Start Date End Date Lolly Oliveira MD [address] [place] [address] PCP - General 11/13/08 documented as of this encounter
--- OUTSIDE RECORDS SUMMARY | 2023-11-17 10:47 | XMS_ITS | Encounter Summary ---
Author Organization [facility] [place] [address] Care Team Providers Care Smoke And Flame Specialist Name Role Phone Lolly Oliveira MD Primary Care Provider [phone] Encounter Details Date Type Department Care Team (Late st Contact Info) Description 03/17/2023 Telephone Cardiology at [address] [phone] Saranya Ma Social History Tobacco Use Types [...] 9:43 AM EST Echo order faxed to [facility] at [phone]. No Prior auth needed. Ref #:[id number]. Saranya Ma Sr. Clinical Procedure [place]/Plant And Equipment Worker documented in this encounter Plan of Treatment Upcoming Encounters Date Type Department Care Team (Late st Contact Info) Description 01/16/2024 10:00 AM [facility] Hospital Encounter [place] [address] Arrived documented as of this encounter Visit Diagnoses Not on filedocumented in this encounter Care Teams Smoke And Flame Specialist Relationship Specialty Start Date End Date Lolly Oliveira MD [address] [place] [address] PCP - General 07/17/13 documented as of this encounter
--- OUTSIDE RECORDS SUMMARY | 2023-11-17 10:47 | XMS_ITS | Encounter Summary ---
Author Organization [place] [address] Care Team Providers Care Service Manager Name Role Phone Lolly Oliveira MD Primary Care Provider [phone] Encounter Details Date Type Department Care Team (Latest Contact Info) Description 10/18/2023 10:00 AM EDT - 10/18/2023 11:59 PM EDT Hospital Encounter Non-[place] [address] Discharge Disposition: Home Social History Tobacco Use [...] with spacer fluticasone propionate (Flonase) 50 mcg/actuation [place], Suspension 1 spray by Each Nare route daily as needed. documented as of this encounter Plan of Treatment Upcoming Encounters Date Type Department Care Team (Late st Contact Info) Description 01/16/2024 10:00 AM EST Hospital Encounter Non-In[place] [address] Arrived documented as of this encounter Procedures [...] Lolly Oliveira MD [address] [place] [address] PCP - General 07/17/13 documented as of this encounter
--- OUTSIDE RECORDS SUMMARY | 2023-11-17 10:47 | XMS_ITS | Encounter Summary ---
Author Organization [facility] Address [address] [place] [address] Care Team Providers Care Crystal Grinder Name Role Phone Unavailable Primary Care Provider Unavailabl e Encounter Details Date Type Department Care Team (Late st Contact Info) Description 11/07/2008 Orders Only [facility] Laboratory Services - [facility] ([facility]) [address] [place] [address] Kenneth Parker MD [address] [place] [address] Social History Tobacco Use Types Packs/Day Years [...] ? LYLE, JING ? Accession #: ? [id number] ? : ? 1950 (Age: 58) ??F [...] (Aaron Gray)/lgk ? End of Report ? TOAV BLANCO 11/07/2008 11/08/2008 16: 51 EDT Kenneth Parker MD PATHOLOGY ORDERABLES Performing Organization Address City/State/[facility] Co de Phone Number TOVA BLANCO [address] [place] [address] documented in this encounter Visit Diagnoses Not on filedocumented in this encounter
--- OUTSIDE RECORDS SUMMARY | 2023-11-17 10:47 | XMS_ITS | Encounter Summary ---
Author Organization [facility] Address [address] [place] [address] Care Team Providers Care Fuel Cell Repairer Name Role Phone Lolly Oliveira MD Primary Care Provider [phone] Encounter Details Date Type Department Care Team (Late st Contact Info) Description 02/11/2021 Lab Requisition [facility] Pathology & Laboratory Medicine - [address] [address] Outr Resulting Lab, Provider Social History Tobacco [...] Resulting Lab MICROBIOLOGY - GENERAL ORDERABLES [facility] [address] [place] [address] * COVID-19 TESTING (02/11/2021 8:00 EST) COVID-19 rt-PCR Result Negative Negative 02/12/2021 14:17 EST [facility] Comment: This test has [...] was performed using the med SARS-CoV-2 assay ([employer] on the Med 6800 System Performing Lab Med [address] [facility] 02/12/2021 14:17 EST [facility] Swab 02/11/2021 8:00 EST 02/11/2021 22:22 EST Provider Outr Resulting Lab MICROBIOLOGY - GENERAL ORDERABLES [facility] [address] [place] [address] documented in this encounter Visit Diagnoses Not on filedocumented in this encounter Care Teams Fuel Cell Repairer Relationship Specialty Start Date End Date Lolly Oliveira MD [address] [place] [address] PCP - General 11/13/08 documented as of this encounter
--- OUTSIDE RECORDS SUMMARY | 2023-11-17 10:47 | XMS_ITS | Encounter Summary ---
Author Organization [facility] [place] [address] Care Team Providers Care Telemarketing Representative Name Role Phone Lolly Oliveira MD Primary Care Provider [phone] Encounter Details Date Type Department Care Team [...] EST Hospital Encounter Non-Invasive [place] [address] Arrived documented as of this encounter Visit Diagnoses Not on filedocumented in this encounter Care Teams Telemarketing Representative Relationship Specialty Start Date End Date Lolly Oliveira MD [address] [place] [address] PCP - General 07/17/13 documented as of this encounter
--- OUTSIDE RECORDS SUMMARY | 2023-11-17 10:47 | XMS_ITS | Clinical Summary ---
Author Organization [facility] Address [address] [place] [address] Care Team Providers Care Conference Reservationist Name Role Phone Lolly Oliveira MD Primary Care Provider [phone] Social History Tobacco Use Types Packs/Day Years [...] COVID-19 Vaccine ( season) 2022 Care Teams Conference Reservationist Relationship Specialty Start Date End Date Lolly Oliveira MD [address] [place], [place] [address] PCP - General 11/13/08
--- OUTSIDE RECORDS SUMMARY | 2023-11-17 10:47 | XMS_ITS | Encounter Summary ---
Author Organization [facility] Address [address] [place] [address] Care Team Providers Care Surgical Services Tech Name Role Phone Lolly Oliveira MD Primary Care Provider [phone] Encounter Details Date Type Department Care Team (Late st Contact Info) Description 05/29/[address] [facility] [address] [place] [address] Silvia Diehl, [address] [place] [phone] Social History Tobacco Use Types Packs/Day Years [...] ? JING MOTT ? Accession #: ? [id number] : ? 1950 (Age: 51) ??F ?Collect Date: ? 05/29/2002 Location: ? [facility] ? Receive Date: ? 05/31/2002 Provider: ?SILVIA DIEHL TELEPHONE INFORMATION CLERK Copy to: ? Specimen/Source: ?ThinPrep Pap Test, [...] Report TOVA BLANCO 05/29/2002 05/31/2002 Silvia Diehl TELEPHONE INFORMATION CLERK PATHOLOGY ORDERABLES [facility] [address] [place] [address] documented in this encounter Visit Diagnoses Not on filedocumented in this encounter Care Teams Surgical Services Tech Relationship Specialty Start Date End Date Lolly Oliveira MD [address] [place] [address] PCP - General 11/13/08 documented as of this encounter
--- OUTSIDE RECORDS SUMMARY | 2023-11-17 10:47 | XMS_ITS | Encounter Summary ---
Author Organization [facility] Address [address] [place] [address] Care Team Providers Care Central Service Tech Name Role Phone Lolly Oliveira MD Primary Care Provider [phone] Encounter Details Date Type Department Care Team (Late st Contact Info) Description 02/20/2020 Lab Requisition [facility] Pathology & Laboratory Medicine - [address] [address] Outr Resulting Lab, Provider Social History Tobacco [...] in accordance with CLIA regulations, [employer] [place] [employer] (CAP) guidelines (May 25, 2019), and FDA guidance (May 06, 2019). This test is only for use under the Food and Drug Administration's Emergency Use Authorization. Swab ENTIRE NASOPHARYNX / Unknown 02/19/2020 16:30 EST 02/20/2020 16:09 EST Provider Outr Resulting Lab MICROBIOLOGY - GENERAL ORDERABLES [facility] [place], [place] * COVID-19 TESTING (02/19/2020 16:30 EST) COVID-19 rt-PCR Result NEGATIVE Negative 02/22/2020 23:41 EST [facility] Comment: 2019-novel Coronavirus (2019-nCoV) not [...] in accordance with CLIA regulations, [employer] [place] Path[employer] (CAP) guidelines (May 25, 2019), and FDA guidance (May 06, 2019). This test is only for use under the Food and Drug Administration's Emergency Use Authorization. Performing Lab [facility] 02/22/2020 23:41 EST [facility] Swab 02/19/2020 16:3 0 EST 02/20/2020 16:09 EST Provider Outr Resulting Lab MICROBIOLOGY - GENERAL ORDERABLES [facility] [address] [place] [address] [facility] [place] documented in this encounter Visit Diagnoses Not on filedocumented in this encounter Care Teams Central Service Tech Relationship Specialty Start Date End Date Lolly Oliveira MD [address] [place] [address] PCP - General 11/13/08 documented as of this encounter
--- OUTSIDE RECORDS SUMMARY | 2023-11-17 10:47 | XMS_ITS | Encounter Summary ---
Author Organization [facility] [place] [address] Care Team Providers Care Silo Man Name Role Phone Lolly Oliveira MD Primary Care Provider Encounter Details Date Type Department Care Team (Latest Contact Info) Description 04/21/2023 10:00 AM EST - 04/21/2023 11:59 PM EST Hospital Encounter [place] [address] Discharge Disposition: Home Social History Tobacco Use [...] with spacer fluticasone propionate (Flonase) 50 mcg/actuation [place], Suspension 1 spray by Each Nare route [...] AM EST Hospital Encounter Non-[place] [address] Arrived documented as of this [...] on filedocumented in this encounter Care Teams Silo Man Relationship Specialty Start Date End Date Lolly Oliveira MD [address] [place] [address] PCP - General 07/17/13 documented as of this encounter
--- OUTSIDE RECORDS SUMMARY | 2023-11-17 10:47 | XMS_ITS | Encounter Summary ---
Author Organization [facility] Address [address] [place] [address] Care Team Providers Care [id number] Armor Crewman Name Role Phone Lolly Oliveira MD Primary Care Provider [phone] Encounter Details Date Type Department Care Team (Late st Contact Info) Description 11/13/2020 Lab Requisition [facility] Pathology & Laboratory Medicine - [address] [address] Outr Resulting Lab, Provider Social History Tobacco [...] Outr Resulting Lab MICROBIOLOGY - GENERAL ORDERABLES [facility] [address] [place] [address] * COVID-19 TESTING (11/13/2020 7:30 EDT) COVID-19 rt-PCR Result Negative Negative 11/14/2020 11:46 EDT [facility] Comment: This test has [...] performed using the med SARS-CoV-2 assay ([employer] on the Med 6800 System Performing Lab Med 6800 [facility] 11/14/2020 11:46 EDT [facility] Swab 11/13/2020 7:30 EDT 11/13/2020 20:57 EDT Provider Outr Resulting Lab MICROBIOLOGY - GENERAL ORDERABLES [facility] [address] [place] [address] documented in this encounter Visit Diagnoses Not on filedocumented in this encounter Care Teams [id number] Armor Crewman Relationship Specialty Start Date End Date Lolly Oliveira MD [address] [place] [address] PCP - General 11/13/08 documented as of this encounter
--- OUTSIDE RECORDS SUMMARY | 2023-11-17 10:48 | XMS_ITS | Encounter Summary ---
[place] [address] Care Team Providers Care Senior Field Service Engineer Name Role Phone Lolly Oliveira MD Primary Care Provider [phone] Encounter Details Date Type Department Care Team [...] Hospital Encounter Non-[place]vasive [place] [address] Arrived documented as of this encounter Visit Diagnoses Not on filedocumented in this encounter Care Teams Senior Field Service Engineer Relationship Specialty Start Date End Date Lolly Oliveira MD [address] [place] [address] PCP - General 07/17/13 documented as of this encounter
--- OUTSIDE RECORDS SUMMARY | 2023-11-17 10:48 | XMS_ITS | Encounter Summary ---
Author Organization [facility] Address [facility] [place] [address] Care Team Providers Care Mash Preparatory Operator Name Role Phone Lolly Oliveira MD Primary Care Provider [phone] Encounter Details Date Type Department Care Team (Late st Contact Info) Description 11/11/2022 Orders Only Cardiology at [address] [phone] Lalit Mcmahon MD [facility] [place] [address] Nonischemic cardiomyopathy Social History Tobacco Use Types Packs/Day Years Used Date Smoking Tobacco: Never Alcohol Use Standard Drinks/Week Comments Not Currently 0 (1 standard drink = 0.6 oz pur e alcohol) [facility] Inpatient Questions Answer Date Recorded Does [...] st Contact Info) Description 01/16/2024 10:00 AM [facility] Hospital Encounter Non-[place] [phone] Arrived documented as of this encounter Visit Diagnoses Diagnosis Nonischemic cardiomyopathy Other primary cardiomyopathies documented in this encounter Care Teams Mash Preparatory Operator Relationship Specialty Start Date End Date Berrian, Lolly M, MD [address] [place] [address] PCP - General 07/17/13 documented as of this encounter
--- OUTSIDE RECORDS SUMMARY | 2023-11-17 10:48 | XMS_ITS | Encounter Summary ---
Author Organization [facility] [place] [address] Care Team Providers Care Reconstructive Dentist Name Role Phone Lolly Oliveira MD Primary Care Provider [phone] Encounter Details Date Type Department Care Team (Late st Contact Info) Description 11/16/2022 Telephone Cardiology at [address] [phone] Luna Rousseau, RN Social History Tobacco Use Types Packs/Day Years Used Date Smoking Tobacco: Never Alcohol Use Standard Drinks/Week Comments Not Currently 0 (1 standard drink = 0.6 oz pur e alcohol) [facility] Inpatient Questions Answer Date Recorded Does [...] BP today was 118/57 at CR at [facility]. Pt is going twice a week to [...] [facility] Encounter [place] [address] Arrived documented as of this encounter Visit Diagnoses Not on filedocumented in this encounter Care Teams Reconstructive Dentist Relationship Specialty Start Date End Date Lolly Oliveira MD [address] [place] [address] PCP - General 07/17/13 documented as of this encounter
--- OUTSIDE RECORDS SUMMARY | 2023-11-17 10:48 | XMS_ITS | Encounter Summary ---
Author Organization [facility] [place] [address] Care Team Providers Care Mechanical Estimator Name Role Phone Lolly Oliveira MD Primary Care Provider [phone] Reason for Referral * Diagnostic Test (Routine) - Closed Specialty Diagnoses / Procedures Referred By Contac t Referred To Contact Radiology Diagnoses Left bundle branch block Nonischemic cardiomyopathy Procedures MRI Cardiac Morphology Function With Flow Velocity Quantification [facility] Contrast MRI Cardiac Morphology Function wwo Contrast Lalit Mcmahon MD [facility] [place] [address] [place] [address] Referral ID Status Reason Start Date Expiration Date V isits Requested Visits Authorized [id number] Closed Specialty Service Requested 05/06/2022 11/07/2023 2 1 Reason for Visit * Diagnostic Test (Routine) - Closed Specialty Diagnoses / Procedures Referred By Contac t Referred To Contact Radiology Diagnoses Left bundle branch block Nonischemic cardiomyopathy Procedures MRI Cardiac Morphology Function With Flow Velocity Quantification o Contrast MRI Cardiac Morphology Function wwo Contrast Lalit Mcmahon MD [facility] [place] [address] [place] [address] Referral ID Status Reason Start Date Expiration Date V isits Requested Visits Authorized [id number] Closed Specialty Service Requested 05/06/2022 11/07/2023 2 1 Encounter Details Date Type Department Care Team (Latest Contact Info) Description 07/14/2022 9:08 AM EDT Hospital Encounter MRI at [facility] [place] [phone] Lalit Mcmahon MD [facility] [address] [place] [address] Left bundle branch block; Nonischemic cardiomyopathy Discharge [...] with spacer fluticasone propionate (Flonase) 50 mcg/actuation [place], Suspension 1 spray by Each Nare route [...] : 1950 [address] [facility] [address] Female [phone] (home) No relevant phone numbers on file. Lolly Oliveira MD None Allergies Allergen Reactions ??? Sulfa (Sulfonamide Antibiotics) Date/Time of call: July 07, 2022/11:03 AM/ PREVIOUS MRI SCAN? HEIGHT: WEIGHT: SCHEDULED SCAN: MRI CARDIAC MORPHOLOGY FUNCTION WITH FLOW VELOCITY QUANTIFICATION WWO CONTRAST [[id number]] Order Questions Answers Where will study be performed? [facility] Radiology [120] SUBJECTIVE: Very Claustrophobic CAN [...] ( KV ) You must have a national flatbed truck driver present when you check in. This patient has been informed that they require a national flatbed truck driver to drive them home after this procedure. In the absence of a national flatbed truck driver, IR will not be able to sedate for your scan. Pt verbalized understanding of these instructions during the pre-procedure education via phone. Yes Name of national flatbed truck driver: Daughter Phone number: PRIOR SCAN DATE/S SEDATION TYPE SUCCESSFUL 07/14/22 MRI Cardiac Morphology Function with Flow Velocity Quantification wwo Contrast Ativan 1mg x 1 dose Pass Revised 08/03/17 documented in this encounter Plan of Treatment Upcoming Encounters Date Type Department Care Team (Late st Contact Info) Description 01/16/2024 10:00 AM [facility] Hospital Encounter Non-Invasive [place] [address] Arrived documented as of this encounter Procedures [...] signed by: Greyson Herron MD, [facility] ([phone]), at 07/15/2022 9:53 AM Narrative 07/15/2022 9:53 [...] mg documented in this encounter Care Teams Mechanical Estimator Relationship Specialty Start Date End Date Lolly Oliveira MD [address] [place] [address] PCP - General 07/17/13 documented as of this encounter
--- OUTSIDE RECORDS SUMMARY | 2023-11-17 10:48 | XMS_ITS | Encounter Summary ---
Author Organization [facility] [place] [address] Care Team Providers Care Project Facilitator Name Role Phone Lolly Oliveira MD Primary Care Provider [phone] Encounter Details Date Type Department Care Team (Late st Contact Info) Description 07/26/2013 [place] [phone] Eleno Christian MD [facility] [place]ST[place] [address] Social History Tobacco Use Types Packs/Day Years [...] AM EST Hospital Encounter Non-Invasive [place] [address] Arrived documented as of this encounter Visit Diagnoses Not on filedocumented in this encounter Care Teams Project Facilitator Relationship Specialty Start Date End Date Lolly Oliveira MD [address] [place] [address] PCP - General 07/17/13 documented as of this encounter
--- OUTSIDE RECORDS SUMMARY | 2023-11-17 10:48 | XMS_ITS | Encounter Summary ---
Author Organization [facility] [place] [address] Care Team Providers Care Bottle Sorter Name Role Phone Lolly Oliveira MD Primary Care Provider Encounter Details Date Type Department Care Team (Latest Contact Info) Description 07/20/2013 9:26 AM EDT - 07/20/2013 11:59 PM EDT Hospital Encounter [place] [phone] CLINIC, Lolly So MD [address] [place], [place] [id number] Mammographic microcalcification Discharge Disposition: Home Social History [...] AM EST Hospital Encounter Non-[place] [address] Arrived documented as of this encounter Procedures [...] does not layer and, therefore, are not public service representative of milk of calcium. Again, [...] does not layer and, therefore, are not public service representative of milk of calcium. Again, these have an amorphous andpunctate appearance and remain indeterminate. Stereotactic guided biopsy isrecommended. Alia Fraire MD IMG MAMMO ORDERABLES documented in this encounter Visit Diagnoses Diagnosis Mammographic microcalcification documented in this encounter Care Teams Bottle Sorter Relationship Specialty Start Date End Date Lolly Oliveira MD [address] [place] [address] PCP - General 07/17/13 documented as of this encounter
--- OUTSIDE RECORDS SUMMARY | 2023-11-17 10:48 | XMS_ITS | Encounter Summary ---
Author Organization [place] [address] Care Team Providers Care Adult Ministries Director Name Role Phone Lolly Oliveira MD Primary Care Provider Encounter Details Date Type Department Care Team (Latest Contact Info) Description 01/21/2023 10:00 AM EST - 01/21/2023 11:59 PM EST Hospital Encounter Non-[place] [phone] Discharge Disposition: Home Social History Tobacco Use [...] with spacer fluticasone propionate (Flonase) 50 mcg/actuation [place], Suspension 1 spray by Each Nare route [...] AM EST Hospital Encounter Non-[place] [address] Arrived documented as of this [...] on filedocumented in this encounter Care Teams Adult Ministries Director Relationship Specialty Start Date End Date Lolly Oliveira MD [address] [place] [address] PCP - General 07/17/13 documented as of this encounter
--- OUTSIDE RECORDS SUMMARY | 2023-11-17 10:48 | XMS_ITS | Encounter Summary ---
Author Organization [facility] [place] [address] Care Team Providers Care Electrical System Specialist Name Role Phone Lolly Oliveira MD Primary Care Provider [phone] Encounter Details Date Type Department Care Team (Latest Contact Info) Description 07/17/2013 8:40 AM EDT - 07/17/2013 11:59 PM EDT Hospital Encounter XRay at [address] [place] [phone] CLINIC, DR [facility] Discharge Disposition: Home Social [...] AM EST Hospital Encounter Non-Invasive [place] [address] Arrived documented as of this encounter Visit Diagnoses Not on filedocumented in this encounter Care Teams Electrical System Specialist Relationship Specialty Start Date End Date Lolly Oliveira MD [address] [place] [address] PCP - General 07/17/13 documented as of this encounter
--- OUTSIDE RECORDS SUMMARY | 2023-11-17 10:48 | XMS_ITS | Encounter Summary ---
Author Organization [facility] [place] [address] Care Team Providers Care Squirrel Worker Name Role Phone Lolly Oliveira MD Primary Care Provider [phone] Reason for Visit * Reason Onset Date Comments Pre Procedure Call 07/01/2022 Encounter Details Date Type Department Care Team (Late st Contact Info) Description 07/01/2022 Telephone Cardiology at [address] [phone] Rosenda Sutton RN Pre Procedure Call Social History Tobacco Use Types Packs/Day Years Used Date Smoking Tobacco: Never Sex and Gender Information Value Date Recorded Sex Assigned at Not on file Gender Identity Not on file Sexual Orientation Not on file documented as of this encounter Miscellaneous Notes * Telephone Encounter - Rosenda Sutton RN - 07/01/2022 9:30 AM EDTSummary: Pre Procedure Call: STONEMASON implant EP FORENSIC MATERIALS ENGINEER COORDINATION CHECKLIST Patient Name: Luna Mott Patient Performing Superintendent Schools: Lalit Mcmahon Referring Provider: Lolly Oliveira Date of Procedure: 07/23/22 Arrival Time/ Case Time: 12:00 pm / 1:00 pm Check In Location: [employer] Care Manager Desk 4W Date Patient was Called: 07/01/22 Procedure: STONEMASON Company: [employer] Type: STONEMASON-D Laterality: LEFT Orders: Yes Lab Orders: Yes [...] overnight , understands that they will need courtesy driver on day of discharge Notified pt that Goff catheter may be placed on day of procedure depending on type & duration of case. documented in this encounter Plan of Treatment Upcoming Encounters Date Type Department Care Team (Late st Contact Info) Description 01/16/2024 10:00 AM [facility] Hospital Encounter [place] [address] Arrived documented as of this encounter Visit Diagnoses Not on filedocumented in this encounter Care Teams Squirrel Worker Relationship Specialty Start Date End Date Lolly Oliveira MD [address] [place] [address] PCP - General 07/17/13 documented as of this encounter
--- OUTSIDE RECORDS SUMMARY | 2023-11-17 10:48 | XMS_ITS | Encounter Summary ---
[place] [address] Care Team Providers Care Pricing Clerk Name Role Phone Lolly Oliveira MD Primary Care Provider [phone] Encounter Details Date Type Department Care Team [...] AM EST Hospital Encounter Non-Invasive [place] [address] Arrived documented as of this encounter Visit Diagnoses Not on filedocumented in this encounter Care Teams Pricing Clerk Relationship Specialty Start Date End Date Lolly Oliveira MD [address] [place] [address] PCP - General 07/17/13 documented as of this encounter
--- OUTSIDE RECORDS SUMMARY | 2023-11-17 10:48 | XMS_ITS | Encounter Summary ---
Author Organization [facility] [place] [address] Care Team Providers Care Sales Research Analyst Name Role Phone Lolly Oliveira MD Primary Care Provider [phone] Encounter Details Date Type Department Care Team (Latest Contact Info) Description 07/18/2013 Orders [place] [phone] Alia Fraire MD [facility] [place] [address] Mammographic microcalcification (Primary Dx) Social History Tobacco [...] EST Hospital Encounter Non-Invasive [place] [address] Arrived documented as of this encounter Results [...] are present on specimen digital X-ray. A Innovacellrk Eviva-Stereo 13 Cylinder marker clip was placed. [...] calcifications are present on specimendigital X-ray. A Innovacellrk Eviva-Stereo 13 Cylinder marker clip was placed. [...] does not layer and, therefore, are not group sales representative of milk of calcium. Again, [...] does not layer and, therefore, are not group sales representative of milk of calcium. Again, these have an amorphous andpunctate appearance and remain indeterminate. Stereotactic guided biopsy isrecommended. Alia Fraire MD IMG MAMMO ORDERABLES documented in this encounter Visit Diagnoses Diagnosis Mammographic microcalcification- Primary Mammographic microcalcification Mammographic microcalcification Mammographic microcalcification Mammographic microcalcification documented in this encounter Care Teams Sales Research Analyst Relationship Specialty Start Date End Date Lolly Oliveira MD [address] [place] [address] PCP - General 07/17/13 documented as of this encounter
--- OUTSIDE RECORDS SUMMARY | 2023-11-17 10:48 | XMS_ITS | Encounter Summary ---
Author Organization [facility] Address [facility] [place] [address] Care Team Providers Care Shaper Setter Name Role Phone Lolly Oliveira MD Primary Care Provider [phone] Encounter Details Date Type Department Care Team (Late st Contact Info) Description 07/16/2022 Telephone Cardiology at [address] [phone] Lalit Mcmahon MD [facility] [place] [address] Social History Tobacco Use Types Packs/Day Years [...] her nonischemic cardiomyopathy. She is scheduled for SPRING MAKER-D implantation next week and looks forward to the procedure. We will see each other next week. Lalit Mcmahon MD [facility] Cardiac Electrophysiology 07/16/2022 8:52 AM documented in this encounter Plan of Treatment Upcoming Encounters Date Type Department Care Team (Late st Contact Info) Description 01/16/2024 10:00 AM EST Hospital Encounter Non-Invasive [place] [address] Arrived documented as of this encounter Visit Diagnoses Not on filedocumented in this encounter Care Teams Shaper Setter Relationship Specialty Start Date End Date Lolly Oliveira MD [address] [place] [address] PCP - General 07/17/13 documented as of this encounter
--- OUTSIDE RECORDS SUMMARY | 2023-11-17 10:48 | XMS_ITS | Encounter Summary ---
[place] [address] Care Team Providers Care Trauma Director Name Role Phone Lolly Oliveira MD Primary Care Provider [phone] Encounter Details Date Type Department Care Team (Latest Contact Info) Description 07/26/2013 9:45 AM EDT - 07/26/2013 11:59 PM EDT Hospital [place] [address] Mammographic microcalcification Social History Tobacco Use Types [...] AM EST Hospital Encounter Non-[place] [address] Arrived documented as of this encounter Procedures Procedure Name Priority Date/Time Associated Diagnosis Comments SURGICAL PATHOLOGY REPORT Routine 07/26/2013 12:12 PM EDT MAMMO SPECIMEN IMAGING DURING BIOPSY Routine 07/26/2013 11:58 AM EDT Mammographic microcalcification documented in this encounter Results * Surgical Pathology Report (07/26/2013 12:12 PM EDT) Final Diagnosis ? [facility] ? Provider: ?? ELENO CHRISTIAN ?? Pt. Name: ?? JING ALVARENGA ? Acc #: ?[id number] ?Pt. ? Col Date: ?? 07/26/2013 ? [...] Partially fragmented, fibrofatty needle core biopsies. ? [facility] ? Provider: ?? ELENO CHRISTIAN ?? Pt. Name: ?? JING ALVARENGA ? Acc #: ?[id number] ?Pt. ? Col Date: ?? 07/26/2013 ? [...] FCD, adenosis, DCIS 07/28/2013 8:29 AM EDT [facility] BREAST STRUCTURE / Unknown 07/26/2013 12:12 PM EDT 07/26/2013 12:12 PM EDT Eleno Christian MD PATHOLOGY/CYTOLOGY O RDERABLES Performing Organization Address City/State/[facility] [place] Phone Number [facility] [address] * Mammo Specimen Imaging During Biopsy (07/26/2013 [...] microcalcification documented in this encounter Care Teams Trauma Director Relationship Specialty Start Date End Date Lolly Oliveira MD [address] [place] [address] PCP - General 07/17/13 documented as of this encounter
--- OUTSIDE RECORDS SUMMARY | 2023-11-17 10:48 | XMS_ITS | Encounter Summary ---
[place] [address] Care Team Providers Care Microsoft Application Developer Name Role Phone Lolly Oliveira MD Primary Care Provider [phone] Encounter Details Date Type Department Care Team (Late st Contact Info) Description 04/09/2022 Refill Dermatology at [address] [address] Nora Meredith, LENS HARDENER Social History Tobacco Use Types Packs/Day Years [...] [facility]counter [place] [address] Arrived documented as of this encounter Visit Diagnoses Not on filedocumented in this encounter Care Teams Microsoft Application Developer Relationship Specialty Start Date End Date Lolly Oliveira MD [address] [place] [address] PCP - General 07/17/13 documented as of this encounter
--- OUTSIDE RECORDS SUMMARY | 2023-11-17 10:48 | XMS_ITS | Encounter Summary ---
Author Organization [facility] [place] [address] Care Team Providers Care Healthcare Manager Name Role Phone Lolly Oliveira MD Primary Care Provider [phone] Reason for Visit * Reason Comments Follow-up Encounter Details Date Type Department Care Team (Late st Contact Info) Description 06/06/2021 8:45 AM EDT Office Visit Dermatology at [address] [address] Clay Ramírez MD [address] [facility] [place] [address] Psoriasis, guttate Social History Tobacco Use Types [...] AM [facility] Hospital Encounter Non-Invasive [place] [address] Arrived documented as of this encounter Visit Diagnoses Diagnosis Psoriasis, guttate Other psoriasis documented in this encounter Care Teams Healthcare Manager Relationship Specialty Start Date End Date Lolly Oliveira MD [address] [place] [address] PCP - General 07/17/13 documented as of this encounter
--- OUTSIDE RECORDS SUMMARY | 2023-11-17 10:48 | XMS_ITS | Encounter Summary ---
Author Organization [facility] [place] [address] Care Team Providers Care Lead Architect Name Role Phone Lolly Oliveira MD Primary Care Provider Reason for Referral * Consultation (Routine) - Closed Specialty Diagnoses / Procedures Referred By Contact Referred To Contact Electrophysiology / Cardiology Diagnoses Left bundle branch block Cardiomyopathy, unspecified type AT MINIMUM PT NEEDS CONSIDERATION FOR DEFIBRILLATOR, ALSO CANDIDATE FOR RESYNCHRONIZATION THERAPY HER QRS IS >0.16 Lolly Oliveira MD [address] [place] [address] [facility] [address] [place] [address] Referral ID Status Reason Start Date Expiration Date V isits Requested Visits Authorized [id number] Closed Consult, Test & Treat PCP Updated and/or Approved 04/30/2022 04/30/2023 6 6 Encounter Details Date Type Department Care Team (Latest Contact Info) Description 04/30/2022 Transcribe Orders eDH Incoming Referrals [phone] Lolly Oliveira MD [address] [place], [place] [id number] Left bundle branch block; Cardiomyopathy, unspecified type [...] AM EST Hospital Encounter Non-[place] [address] Arrived Scheduled Referrals Name Type Priority Associated Diagnoses Orde r Schedule Referral to Cardiology Outpatient Referral Routine Left bundle branch block Cardiomyopathy, Unspecified Type Ordered: 04/30/2022 documented as of this encounter Visit Diagnoses Diagnosis Left bundle branch block Other left bundle branch block Cardiomyopathy, unspecified type documented in this encounter Care Teams Lead Architect Relationship Specialty Start Date End Date Lolly Oliveira MD [address] [place] [address] PCP - General 07/17/13 documented as of this encounter
--- OUTSIDE RECORDS SUMMARY | 2023-11-17 10:48 | XMS_ITS | Encounter Summary ---
Author Organization [facility] [place] [address] Care Team Providers Care Construction Quality Control Manager Name Role Phone Lolly Oliveira MD Primary Care Provider [phone] Reason for Visit * Reason Comments Psoriasis Encounter Details Date Type Department Care Team (Late st Contact Info) Description 04/09/2022 1:45 PM EST Office Visit Dermatology at [address] [address] Clay Ramírez MD [address] [facility] [place] [address] Psoriasis, guttate Social History Tobacco Use Types [...] AM EST Hospital Encounter Non-Invasive [place] [address] Arrived documented as of this encounter Visit Diagnoses Diagnosis Psoriasis, guttate Other psoriasis documented in this encounter Care Teams Construction Quality Control Manager Relationship Specialty Start Date End Date Lolly Oliveira MD [address] [place] [address] PCP - General 07/17/13 documented as of this encounter
--- OUTSIDE RECORDS SUMMARY | 2023-11-17 10:48 | XMS_ITS | Encounter Summary ---
Author Organization [facility] [place] [address] Care Team Providers Care Stove Tender Name Role Phone Lolly Oliveira MD Primary Care Provider [phone] Reason for Referral * Diagnostic Test (Routine) - Closed Specialty Diagnoses / Procedures Referred By Contac t Referred To Contact Radiology Diagnoses Left bundle branch block Nonischemic cardiomyopathy Procedures MRI Cardiac Morphology Function With Flow Velocity Quantification wwo Contrast MRI Cardiac Morphology Function wwo Contrast Lalit Mcmahon MD [facility] [place] [address] [place] [address] Referral ID Status Reason Start Date Expiration Date V isits Requested Visits Authorized [id number] Closed Specialty Service Requested 05/06/2022 11/07/2023 2 1 Encounter Details Date Type Department Care Team (Late st Contact Info) Description 05/06/2022 Orders Only Cardiology at [address] [address] Lalit Mcmahon MD [facility] [place] [address] Left bundle branch block; Nonischemic cardiomyopathy Social [...] AM EST Hospital Encounter [place] [address] Arrived documented as of this encounter Results [...] who have questions please contact the health toddler caregiver that requested your imaging first. ? [...] patients who have questions please contactthe health toddler caregiver that requested your imaging first. Lalit Mcmahon MD IMG MRI ORDERABLES documented in this encounter Visit Diagnoses Diagnosis Left bundle branch block Other left bundle branch block Nonischemic cardiomyopathy Other primary cardiomyopathies Left bundle branch block Other left bundle branch block Nonischemic cardiomyopathy Other primary cardiomyopathies documented in this encounter Care Teams Stove Tender Relationship Specialty Start Date End Date Lolly Oliveira MD [address] [place] [address] PCP - General 07/17/13 documented as of this encounter
--- OUTSIDE RECORDS SUMMARY | 2023-11-17 10:48 | XMS_ITS | Encounter Summary ---
[place] [address] Care Team Providers Care Sample Stitcher Name Role Phone Lolly Oliveira MD Primary Care Provider [phone] Encounter Details Date Type Department Care Team [...] AM EST Hospital Encounter Non-[place]vasive [place] [address] Arrived documented as of this encounter Visit Diagnoses Not on filedocumented in this encounter Care Teams Sample Stitcher Relationship Specialty Start Date End Date Lolly Oliveira MD [address] [place] [address] PCP - General 07/17/13 documented as of this encounter
--- OUTSIDE RECORDS SUMMARY | 2023-11-17 10:48 | XMS_ITS | Encounter Summary ---
Author Organization [place] [address] Care Team Providers Care Beef Pusher Name Role Phone Lolly Oliveira MD Primary Care Provider [phone] Encounter Details Date Type Department Care Team (Late st Contact Info) Description 04/01/2021 3:30 PM EST Office Visit Dermatology at [address] [phone] Clay Ramírez MD [address], [place] [address] Psoriasis, guttate Social History Tobacco Use Types [...] AM EST Hospital Encounter Non-Invasive [place] [address] Arrived documented as of this encounter Visit Diagnoses Diagnosis Psoriasis, guttate Other psoriasis documented in this encounter Care Teams Beef Pusher Relationship Specialty Start Date End Date Lolly Oliveira MD [address] [place] [address] PCP - General 07/17/13 documented as of this encounter
--- OUTSIDE RECORDS SUMMARY | 2023-11-17 10:48 | XMS_ITS | Encounter Summary ---
Author Organization [facility] [place] [address] Care Team Providers Care Basket Turner Name Role Phone Lolly Oliveira MD Primary Care Provider [phone] Reason for Visit * Reason Comments Follow-up Encounter Details Date Type Department Care Team (Late st Contact Info) Description 05/21/2022 8:00 AM EDT Office Visit Dermatology at [address] [phone] Clay Ramírez MD [address] [facility], [place] [address] Psoriasis, guttate Social History Tobacco Use Types [...] st Contact Info) Description 01/16/2024 10:00 AM [facility] Hospital Encounter [place] [address] Arrived documented as of this encounter Visit Diagnoses Diagnosis Psoriasis, guttate Other psoriasis documented in this encounter Care Teams Basket Turner Relationship Specialty Start Date End Date Lolly Oliveira MD [address] [place] [address] PCP - General 07/17/13 documented as of this encounter
--- OUTSIDE RECORDS SUMMARY | 2023-11-17 10:48 | XMS_ITS | Encounter Summary ---
Author Organization [facility] [place] [address] Care Team Providers Care Pan Washer Name Role Phone Lolly Oliveira MD Primary Care Provider [phone] Encounter Details Date Type Department Care Team (Latest Contact Info) Description 07/26/2013 9:44 AM EDT - 07/26/2013 11:59 PM EDT Hospital [place] [phone] CLINIC, Lolly So MD [address] [place], [place] [id number] Mammographic microcalcification Discharge Disposition: Home Social History [...] AM EST Hospital Encounter Non-Invasive [place] [phone] Arrived documented as of this encounter Procedures [...] are present on specimen digital X-ray. A 2theloo-Stereo 13 Cylinder marker clip was placed. Cranio-caudal [...] mLs documented in this encounter Care Teams Pan Washer Relationship Specialty Start Date End Date Lolly Oliveira MD [address] [place] [address] PCP - General 07/17/13 documented as of this encounter
--- OUTSIDE RECORDS SUMMARY | 2023-11-17 10:48 | XMS_ITS | Encounter Summary ---
Author Organization [facility] [place] [address] Care Team Providers Care Stunt Woman Name Role Phone Lolly Oliveira MD Primary Care Provider [phone] Encounter Details Date Type Department Care Team (Late Contact Info) Description 01/14/2022 Telephone Dermatology at [address] [address] Nora Meredith LPN Social History [...] AM EST Hospital Encounter Non-[place] [address] Arrived documented as of this encounter Visit Diagnoses Not on filedocumented in this encounter Care Teams Stunt Woman Relationship Specialty Start Date End Date Lolly Oliveira MD [address] [place] [address] PCP - General 07/17/13 documented as of this encounter
--- OUTSIDE RECORDS SUMMARY | 2023-11-17 10:48 | XMS_ITS | Encounter Summary ---
Author Organization [facility] Address [facility] [place] [address] Care Team Providers Care Guide Travel Name Role Phone Lolly Oliveira MD Primary Care Provider [phone] Reason for Visit * Auth/Cert (Routine) Specialty Diagnoses / Procedures Referred By Contac t Referred To Contact Diagnoses Left bundle-branch block, unspecified Other cardiomyopathies Left bundle branch block [I44.7]Nonischemic cardiomyopathy [I42.8] Procedures PRG CATH PLMT LEFT HEART CATH & ARTS W/INJ & ANGIO IMG S&I ELECTROPHYSIOLOGY PROCEDURE Lalit Mcmahon MD [facility] [place] [address] [facility] Referral ID Status Reason Start Date Expiration Date Visits Re quested Visits Authorized [id number] 1 1 Encounter Details Date Type Department Care Team (Late st Contact Info) Description 07/23/2022 1:08 PM EDT Anesthesia Event [place] [address] Monae Gonzalez MD [facility] [place] [address] Maria Elena Snyder CRNA [facility] [place] [address] Anesthesia Record Procedure Summary Procedure Name Responsible [...] 1307; median cubital vein (antecubital fossa), right; lozi-fsn-vejbxz catheter system; Anatomical Landmarks; 20 gauge; 07/24/22; [...] 1343; metacarpal vein (top of hand), left; mnow-nqt-drekfq catheter system; Anatomical Landmarks; US Not Used; [...] Procedure Summary Date: 07/23/22 Room / Location: [facility] [place] A-LAB ROOM 3 / [facility]S Anesthesia Start: 1308 Anesthesia Stop: 1633 Procedure: ELECTROPHYSIOLOGY PROCEDURE (Left) Diagnosis: Left bundle branch block Nonischemic cardiomyopathy (Left bundle branch block [I44.7]Nonischemic cardiomyopathy [I42.8]) Providers: Lalit Mcmahon MD Responsible Provider: Monae Gonzalez MD Anesthesia Type: general ASA Status: 4 All Anesthesia Providers: Anesthesiologist: Monae Gonzalez MD; Dominique Sen MD [employer]PERVISOR [employer] DEPARTMENT: Maria Elena Snyder CRNA Vitals Value Taken Time BP 131/46 07/23/22 1700 Temp 36.7 ??C (98.1 ??F) 07/23/22 1627 Pulse 67 07/23/22 1703 Resp 14 07/23/22 1703 SpO2 98 % 07/23/22 1703 Pain Level Vitals shown include unvalidated device data. Patient Location: PACU/[facility] Level of Consciousness: Conscious but Sleepy [...] and Nonischemic CM (EF 15-20%)who presents for BUSINESS PROJECT MANAGER-D. No prior anesthetic records. Pt states that [...] daughter/son and patient who. Plan discussed with SUPERVISOR [employer]ALL M[employer] DEPARTMENT. Anesthesia Screening documented in this encounter Plan of Treatment Upcoming Encounters Date Type Department Care Team (Late st Contact Info) Description 01/16/2024 10:00 AM [facility] Hospital Encounter Non[place] [address] Arrived documented as of this encounter Visit Diagnoses Not on filedocumented in this encounter Administered Medications Inactive Administered Medications - up to 3 most recent administrations Medication Order MAR Action Action Date Dose Rate Site calcium chloride 10% (100 mg/mL) injection Intravenous, PRN, Starting on Ymra 07/23/22 at 1332, Until Myra 07/23/22 at [...] mg documented in this encounter Care Teams Guide Travel Relationship Specialty Start Date End Date Lolly Oliveira MD [address] [place] [address] PCP - General 07/17/13 documented as of this encounter
--- OUTSIDE RECORDS SUMMARY | 2023-11-17 10:48 | XMS_ITS | Encounter Summary ---
Author Organization [facility] [place] [address] Care Team Providers Care Division Road Supervisor Name Role Phone Lolly Oliveira MD Primary Care Provider [phone] Encounter Details Date Type Department Care Team (Latest Contact Info) Description 07/26/2013 9:45 AM EDT - 07/26/2013 11:59 PM EDT Hospital Encounter [place] [address] Mammographic microcalcification Social History Tobacco Use Types [...] EST Hospital Encounter Non-Invasive [place] [address] Arrived documented as of this encounter Procedures [...] microcalcification documented in this encounter Care Teams Division Road Supervisor Relationship Specialty Start Date End Date Lolly Oliveira MD [address] [place] [address] PCP - General 07/17/13 documented as of this encounter
--- OUTSIDE RECORDS SUMMARY | 2023-11-17 10:48 | XMS_ITS | Encounter Summary ---
Author Organization [facility] [place] [address] Care Team Providers Care Remote Pilot Operator Name Role Phone Lolly Oliveira MD Primary Care Provider [phone] Reason for Visit * Diagnostic Test (Routine) - Closed Specialty Diagnoses / Procedures Referred By Contac t Referred To Contact Radiology Diagnoses Left bundle branch block Nonischemic cardiomyopathy Procedures MRI Cardiac Morphology Function With Flow Velocity Quantification wwo Contrast MRI Cardiac Morphology Function wwo Contrast Lalit Mcmahon MD [facility] [place] [address] [facility] [place] [address] Referral ID Status Reason Start Date Expiration Date V isits Requested Visits Authorized [id number] Closed Specialty Service Requested 05/06/2022 11/07/2023 2 1 Encounter Details Date Type Department Care Team (Latest Contact Info) Description 07/14/2022 9:09 AM EDT - 07/14/2022 11:59 PM EDT Hospital [place] [address] Lalit Mcmahon MD [facility] [place] [address] Discharge Disposition: Home Social History Tobacco Use [...] with spacer fluticasone propionate (Flonase) 50 mcg/actuation [place], Suspension 1 spray by Each Nare route [...] AM EST Hospital Encounter Non-[place] [address] Arrived documented as of this [...] mLs documented in this encounter Care Teams Remote Pilot Operator Relationship Specialty Start Date End Date Lolly Oliveira MD [address] [place] [address] PCP - General 07/17/13 documented as of this encounter
--- OUTSIDE RECORDS SUMMARY | 2023-11-17 10:48 | XMS_ITS | Encounter Summary ---
Author Organization [facility] [place] [address] Care Team Providers Care Jumbo Operator Name Role Phone Lolly Oliveira MD Primary Care Provider [phone] Encounter Details Date Type Department Care Team (Late st Contact Info) Description 10/09/2021 Telephone Dermatology at [address] [address] Nora Meredith LPN Social History [...] st Contact Info) Description 01/16/2024 10:00 AM [facility] Hospital Encounter Non-Invasive [place] [address] Arrived documented as of this encounter Visit Diagnoses Not on filedocumented in this encounter Care Teams Jumbo Operator Relationship Specialty Start Date End Date Lolly Oliveira MD [address] [place] [address] PCP - General 07/17/13 documented as of this encounter
--- OUTSIDE RECORDS SUMMARY | 2023-11-17 10:48 | XMS_ITS | Encounter Summary ---
Author Organization [facility] [place] [address] Care Team Providers Care Punching Machine Operator Name Role Phone Lolly Oliveira MD Primary Care Provider [phone] Reason for Visit * Reason Onset Date Comments Post Procedure Call 07/30/2022 Encounter Details Date Type Department Care Team (Late st Contact Info) Description 07/30/2022 Notes Only Cardiology at [address] [phone] Rosenda Sutton, RN Post Procedure Call Social History Tobacco Use Types Packs/Day Years Used Date Smoking Tobacco: Never Alcohol Use Standard Drinks/Week Comments Not Currently 0 (1 standard drink = 0.6 oz pur e alcohol) [facility] Inpatient Questions Answer Date Recorded Does Anyone [...] 07/30/2022 9:59 AM EDTSummary: Post Procedure Call: SODA DRIER FEEDER implant EP RN Post-Procedure Note: Date of [...] Note: Follow-up Recommendations for Providers: - s/p SODA DRIER FEEDER-D implant - post implant QRS 130 ms - reviewed post-implant instructions - no medication changes - Follow up in device clinic for wound/device check in ~10 days??([facility]) Wound Care: -Wound will heal in [facility] [place] [address] Arrived documented as of this encounter Visit Diagnoses Not on filedocumented in this encounter Care Teams Punching Machine Operator Relationship Specialty Start Date End Date Lolly Oliveira MD [address] [place] [address] PCP - General 07/17/13 documented as of this encounter
--- OUTSIDE RECORDS SUMMARY | 2023-11-17 10:48 | XMS_ITS | Encounter Summary ---
Author Organization [facility] Address [facility] [place] [address] Care Team Providers Care Cash Posting Representative Name Role Phone Lolly Oliveira MD Primary Care Provider [phone] Encounter Details Date Type Department Care Team (Late st Contact Info) Description 01/29/2023 Notes Only Cardiology at [address] [address] Merle Lin PA [facility] [place] [address] Social History Tobacco Use Types Packs/Day Years [...] pdf document Date of transmission: 01/29/2023 Device batter depositor: BSI Device type: SURVIVAL EQUIPMENT REPAIRER-D Presenting rhythm: /RVP/LVP AP 21% Right PYTHON DEVELOPER 100% Left PYTHON DEVELOPER: 100% Battery: 10.5 years [employer] Index rising in setting of increasing S3 intensity, increasing respiratory rate, increasing night heart rate, and increasing mean heart rate. MICKEY Villa 01/29/2023 9:06 AM documented in this encounter Plan of Treatment Upcoming Encounters Date Type Department Care Team (Late st Contact Info) Description 01/16/2024 10:00 AM EST Hospital Encounter Non-Invasive [place] [address] Arrived documented as of this encounter Visit Diagnoses Not on filedocumented in this encounter Care Teams Cash Posting Representative Relationship Specialty Start Date End Date Lolly Oliveira MD [address] [place] [address] PCP - General 07/17/13 documented as of this encounter
--- OUTSIDE RECORDS SUMMARY | 2023-11-17 10:48 | XMS_ITS | Encounter Summary ---
Author Organization [facility] [place] [address] Care Team Providers Care Pie Baker Name Role Phone Lolly Oliveira MD Primary Care Provider [phone] Reason for Visit * Reason Comments Skin Check Encounter Details Date Type Department Care Team (Late st Contact Info) Description 11/23/2014 10:00 AM EDT Office Visit Dermatology at [address] [address] Clay Ramírez MD [address] [facility], [place] [address] Dermatofibroma; Nevus; Solar lentigo Discharge Disposition: Home [...] [facility] Hospital Encounter Non-[place] [address] Arrived documented as of this encounter Visit Diagnoses Diagnosis Dermatofibroma Benign neoplasm of skin, site unspecified Nevus Benign neoplasm of skin, site unspecified Solar lentigo Other dyschromia documented in this encounter Care Teams Pie Baker Relationship Specialty Start Date End Date Lolly Oliveira MD [address] [place] [address] PCP - General 07/17/13 documented as of this encounter
--- OUTSIDE RECORDS SUMMARY | 2023-11-17 10:48 | XMS_ITS | Encounter Summary ---
Author Organization [facility] Address [facility] [place] [address] Care Team Providers Care Head Loader Name Role Phone Lolly Oliveira MD Primary Care Provider [phone] Reason for Visit * Auth/Cert (Routine) Specialty Diagnoses / Procedures Referred By Contac t Referred To Contact Diagnoses Left bundle-branch block, unspecified Other cardiomyopathies Left bundle branch block [I44.7]Nonischemic cardiomyopathy [I42.8] Procedures PRG CATH PLMT LEFT HEART CATH & ARTS W/INJ & ANGIO IMG S&I ELECTROPHYSIOLOGY PROCEDURE Lalit Mcmahon MD [facility] [place] [address] [facility] Referral ID Status Reason Start Date Expiration Date Visits Re quested Visits Authorized [id number] 1 1 Encounter Details Date Type Department Care Team (Latest Contact Info) Description 07/23/2022 11:39 AM EDT - 07/24/2022 10:23 AM EDT Hospital [place] [id number] Lalit Mcmahon MD [facility] [place] [address] Left bundle branch block; Nonischemic cardiomyopathy; Cardiac resynchronization therapy defibrillator (TEASEL GIG OPERATOR-D) in place Discharge Disposition: Home Social History [...] Luna Mott Patient Age: 71 y.o. Language: Bolivian Race: White Ethnicity: Not nor Admit date: 07/23/2022 Discharge date and time: 07/24/22 Attending Physician: Lalit Mcmahon MD Discharge Physician: Lalit Mcmahon MD Follow-up Recommendations for Providers: - s/p TEASEL GIG OPERATOR-D implant - post implant QRS 130 [...] Nevus ??? Solar lentigo Operations/Major Procedures: 07/23/22: [facility] TEASEL GIG OPERATOR-D implant History of Presentation: 71 y.o. female with a history of HFrEF, LBBB, QRS >150, NYHA II who is POD#1 of TEASEL GIG OPERATOR-D implant ([employer]). Hospital Course: Elective admission for TEASEL GIG OPERATOR-D implant Admitted post-implant for pain management, [...] (heart failure with reduced ejection fraction) [I50.20] TEASEL GIG OPERATOR-D implant Admission Condition: good Indication for [...] g Refills: 3 fluticasone propionate 50 mcg/actuation Leon, Suspension Commonly known as: Flonase 1 spray [...] incision. Make sure to use a cloth sander (such as a towel) in between the [...] F. The office scheduling phone number is [phone]. ARM MOVEMENT RESTRICTIONS POST-IMPLANT - Do not [...] please call the Cardiac ElectrophysiologyTriage Nurse at [phone], option 3. General Instructions None Discharge References/Attachments [...] incision. Make sure to use a cloth sander (such as a towel) in between the [...] F. The office scheduling phone number is [phone]. ARM MOVEMENT RESTRICTIONS POST-IMPLANT - Do not [...] please call the Cardiac ElectrophysiologyTriage Nurse at [phone], option 3. documented in this encounter Medications [...] with spacer fluticasone propionate (Flonase) 50 mcg/actuation Leon, Suspension 1 spray by Each Nare route [...] Cardiac Electrophysiology Post-Implant Device Interrogation Luna Mott [id number] 07/24/2022 History: Luna Mott is a 71 y.o. female with a history of HFrEF, LBBB, QRS >150, NYHA II who is POD#1 of TEASEL GIG OPERATOR-D implant ([employer]). Overall feels well this morning. Ready [...] WOB Neuro- A&Ox3 Device Interrogation: Data ?? Heating And Cooling Systems Engineer Model # Serial # Generator [employer] [id number] Atrial Lead [employer] [id number] RV Lead [employer] 0672 [id number] LV Lead [employer] [id number] ?? Diagnostics Pacing Mode: DDD 60-130 Underlying Rhythm: [place] Atrial Episodes: None Ventricular Episodes: None FINAL PROGRAMMING: Pacing: Mode Lower rate (ppm) Upper rate (ppm) ?? DDD 60 130 VF: Rate (bpm) #Antitachycardia pacing First shock energy (J) ?? 200 Quick convert 41 VT: 170 Monitor only Monitor only ? Battery and Leads Impedances (ohms) Sensing (mV) Thresholds HV RA RV LV RA RV LV RA RV LV 73 272 [id number] 8070 (LVa) 7.7 13.1 >25 0.4V @ 0.4 ms 0.4V @ 0.4 ms 0.5 V @ 1.0 ms POD#1 CXR: All leads in nominal positioning Impression: 71 y.o. female who is s/p TEASEL GIG OPERATOR-D implant for LBBB, NYHA II, HFrEF. [...] ([facility]) Fadi Nunez MD 07/24/2022 Pager: [phone] I met with the patient today and [...] agreement. ? Dr. Lalit Mcmahon, electrophysiology attending ([id number]) * Zaria Wright RN - 07/23/2022 8:28 [...] HF, QRS > 150 ms presents for TEASEL GIG OPERATOR-D placement. ROS: Denies recent fevers or [...] 0.9) flush 5 mL 5 mL Intravenous [id number] ramos MD ??? sodium chloride 0.9 % (flush) (BD PosiFlush Normal Saline 0.9) flush 5-20 mL 5-20 mL Intravenous Q1 Min PRN Lalit Mcmahon MD ??? lidocaine (Xylocaine) 1% (10 mg/mL) injection 3 mg 0.3 mL Subcutaneous Once PRN Llait Mcmahon MD ??? ceFAZolin (Ancef) 2 g [...] HF, QRS > 150 ms presents for TEASEL GIG OPERATOR-D placement. Backup would be LBBAP lead. Antibiotics: cefazolin Rationales for, intended benefits and potential risk of planned procedures reviewed. The patient indicated understanding and agreement with the plan. Informed consent signed. Procedure checklist completed. Fadi Nunez MD Cardiac Electrophysiology Fellow [facility] Pager [phone] 07/23/2022 I met with the patient today [...] agreement. ? Dr. Lalit Mcmahon, electrophysiology attending ([id number]) documented in this encounter Miscellaneous Notes * Brief Op Note - Lalit Mcmahon MD - 07/23/2022 4:04 PM EDT Brief Operative Note Patient Name: Luna Mott : [id number] MR#: [id number] Case Date: 07/23/2022 Surgeon: Surgeon(s) and Role: [...] AM EST Hospital Encounter Non-Invasive [place] [address] Arrived Scheduled Orders Name Type Priority Associated Diagnoses Orde r Schedule EKG 12 Lead ECG Routine Cardiac resynchronization therapy defibrillator (TEASEL GIG OPERATOR-D) in place One Time for 1 [...] (Bezet) 522 ms MUSE SYSTEM Calculated R [place] 78 degrees MUSE SYSTEM Calculated T [place] -71 degrees MUSE SYSTEM INTERPRETATION AV dual-paced [...] who have questions please contact the health emergency care tech that requested your imaging first. ? Electronically signed by: Kwame Vargas MD, [facility] ([phone]), at 07/24/2022 6:43 AM Narrative 07/24/2022 6:43 [...] patients who have questions please contactthe health emergency care tech that requested your imaging first. Electronically signed by: Kwame Vargas MD, [facility]([phone]), at 07/24/2022 6:43 AM Lalit Mcmahon MD IMG DX ORDERABLES * ELECTROPHYSIOLOGY PROCEDURE (07/23/2022 1:11 PM EDT) Anatomical Region Laterality Modality Other Narrative 07/23/2022 4:24 PM EDT Table formatting from the original result was not included. BIVENTRICULAR ICD IMPLANTATION Door Builder: Lalit Mcmahon MD Fellow: Fadi Nunez MD [...] the entire procedure. LEAD AND GENERATOR DATA: Heating And Cooling Systems Engineer Model # Serial # Generator [employer] [id number] Atrial Lead [employer] [id number] RV Lead [employer] [id number] [id number] LV Lead [employer] [id number] PACE/SENSE DATA: Sensed wave (mV) Threshold (V) [...] (cGycm2) 300 CONCLUSIONS: Successful implantation of a [employer] biventricular ICD for primary prevention and treatment of symptoms related to congestive heart failure. Follow up in EP clinic in 1-2 months. Procedures performed: new ICD system ( cpt 82198-L6); implant LV lead at time of ICD insertion (cpt 94274) I have read, edited and approve of this report: Lalit Mcmahon MD S Cardiac Electrophysiology 07/23/2022 4:22 PM Procedure Note Lalit Mcmahon MD - 07/23/2022 BIVENTRICULAR ICD IMPLANTATION Door Builder: Lalit Mcmahon MD Fellow: Fadi Nunez MD [...] in the entireprocedure. LEAD AND GENERATOR DATA: Heating And Cooling Systems Engineer Model # Serial # Generator [employer] [id number] Atrial Lead [employer] [id number] RV Lead [employer] 0672 [id number] LV Lead [employer] [id number] [id number] PACE/SENSE DATA: Sensed wave (mV) Threshold (V) [...] (cGycm2) 300 CONCLUSIONS: Successful implantation of a [employer] biventricular ICD forprimary prevention and treatment of symptoms related to congestive heartfailure. Follow up in EP clinic in 1-2 months. Procedures performed: new ICD system ( cpt 41408-F6); implant LV lead attime of ICD insertion (cpt 57974) I have read, edited and approve of this report: Lalit Mcmahon MD [facility] Cardiac Electrophysiology 07/23/2022 4:22 PM Lalit Mcmahon MD EP PROCEDURE ORDERAB LES * POCT Glucose (07/23/2022 12:54 PM EDT) Glucose, POC 83 65 - 199 mg/dL [facility] Comment: Supplemental ranges: <140 mg/dL before meals <180 mg/dL all other times of the day Blood 07/23/2022 12:5 4 PM EDT 07/23/2022 12:54 PM EDT Lalit Mcmahon MD POINT OF CARE TEST O RDERABLES Performing Organization Address [facility] Co de Phone Number [facility] [place] [address] * EKG 12 Lead (07/23/2022 12:33 PM EDT) Ventricular rate 72 BPM MUSE SYSTEM Atrial Rate 72 BPM MUSE SYSTEM P-R Interval 158 ms MUSE SYSTEM QRS Duration 176 ms MUSE SYSTEM Q-T Interval 458 ms MUSE SYSTEM QTC Calculated (Bezet) 501 ms MUSE SYSTEM Calculated P [place] 34 degrees MUSE SYSTEM Calculated R [place] 12 degrees MUSE SYSTEM Calculated T [place] -173 degrees MUSE SYSTEM INTERPRETATION Normal sinus rhythm Left bundle branch block Abnormal ECG No previous ECGs available Confirmed by MD Salome, Lalit ([id number]) on 07/23/2022 1:19:03 PM MUSE SYSTEM 07/23/2022 12:3 3 PM EDT 07/23/2022 1:19 PM EDT Lalit Mcmahon MD ECG ORDERABLES Performing Organization Address [facility] de Phone Number MUSE SYSTEM * Differential, Automated (07/23/2022 11:55 AM EDT) Neutrophil % 62.6 % [facility] Neutrophil Absolute 4.14 1.70 - 6.10 x10(3)/[facility] LABORATORY Lymph % 27.0 % [facility] Lymphocytes Abs 1.8 0.9 - 3.2 x10(3)/[facility] LABORATORY Monocyte % 7.3 % [facility] Monocyte Abs 0.5 0.3 - 0.9 x10(3)/[facility] LABORATORY Eos % 2.3 % [facility] Eosinophils Abs 0.2 0.0 - 0.4 x10(3)/[facility] LABORATORY Basophil % 0.6 % [facility] Baso Absolute 0.0 0.0 - 0.1 x10(3)/[facility] LABORATORY Immature Gran % 0.20 % [facility] Comment: Immature granulocytes(IG's)percentage and absolute count will include metamyelocytes, myelocytes, and promyelocytes. Blood smears from CBCs yielding IG's will be scanned manually for concordance. If this scan disagrees with the automated IG or if promyelocytes are noted, a manual differential will be performed. Immature Gran Absolute 0.01 0.00 - 0.04 x10(3)/[facility] LABORATORY Blood 07/23/2022 11:5 5 AM EDT 07/23/2022 12:07 PM EDT Narrative Resulting Agency Comment Spec In Lab Lalit Mcmahon MD HEMATOLOGY ORDERABLE S [facility] [place] [address] * Hemogram (07/23/2022 11:55 AM EDT) White Blood Cell 6.6 4.0 - 9.5 x10(3)/[facility] LABORATORY Red Blood Cell 4.50 4.00 - 5.21 x10(6)/[facility] Hemoglobin 13.7 11.7 - 15.5 g/dL [facility] Hematocrit 42.5 35.7 - 45.8 % [facility] Mean Cell Volume 94.4 82.6 - 94.4 fL [facility] Mean Cell Hemoglobin 30.4 27.1 - 32.0 pg [facility] Mean Cell Hemoglobin Concentration 32.2 31.7 - 35.0 g/dL [facility] Platelet 193 145 - 357 x10(3)/[facility] LABORATORY RDW Standard Deviation 45.5 37.0 - 46.0 fL [facility] RDW coefficient of variation 13.2 11.5 - 14.1 % [facility] Mean Platelet Volume 9.5 7.6 - 12.9 fL [facility] NRBC% auto 0.0 % [facility] NRBC Absolute 0.000 0.000 - 0.000 x10(3)/mcL [facility] Blood 07/23/2022 11:5 5 AM EDT 07/23/2022 12:07 PM EDT Narrative Resulting Agency Comment Spec In Lab Lalit Mcmahon MD HEMATOLOGY ORDERABLE S [facility] [address] [place] [address] * (ABNORMAL) BMP w/fasting Glucose (07/23/2022 11:55 AM EDT) Glucose Fasting 110(H) 65 - 99 mg/dL [facility] Comment: ?Fasting* Glucose Interpretive Criteria [...] Urea Nitrogen 23(H) 8 - 18 mg/dL [facility] Creatinine 1.07 0.70 - 1.20 mg/dL [facility] Sodium 141 135 - 145 mmol/L [facility] Potassium 4.8 3.5 - 5.0 mmol/L [facility] Comment: Please note: ??Patients with WBC >100,000 may have falsely elevated Potassium levels. ??For accurate Potassium quantification in these patients send serum separator tube (gold top) for subsequent determinations. ??Contact the Clinical Chemistry Laboratory if there are any questions. Chloride 106 98 - 107 mmol/L [facility] Carbon Dioxide 26 22 - 31 mmol/L [facility] Anion Gap 9 5 - 15 mmol/L [facility] Calcium 9.7 8.5 - 10.5 mg/dL [facility] Est Glomerular Filtration Rate 55(L) >=60 mL/min/1. 73 m?? [facility] Comment: This patient's estimated GFR [...] Mcmahon MD CHEMISTRY ORDERABLES Performing Organization Address [facility] Co de Phone Number [facility] [place] [address] * Prothrombin Time (07/23/2022 11:55 AM EDT) Prothrombin Time 11.7 9.4 - 12.5 sec [facility] International Normalization Ratio 1.0 [facility] Comment: An INR <2.0 indicates [...] MD HEMATOLOGY ORDERABLE S Performing Organization Address City/[facility] Co de Phone Number [facility] [place] [address] documented in this encounter Visit Diagnoses Diagnosis HFrEF (heart failure with reduced ejection fraction)- Primary Left bundle branch block Other left bundle branch block Nonischemic cardiomyopathy Other primary cardiomyopathies Cardiac resynchronization therapy defibrillator (TEASEL GIG OPERATOR-D) in place Left bundle branch block [...] Routine documented in this encounter Care Teams Head Loader Relationship Specialty Start Date End Date Lolly Oliveira MD [address] [place] [address] PCP - General 07/17/13 documented as of this encounter
--- OUTSIDE RECORDS SUMMARY | 2023-11-17 10:48 | XMS_ITS | Encounter Summary ---
Author Organization Formerly [facility] [place] [address] Care Team Providers Care Precision Lens Polisher Name Role Phone Lolly Oliveira MD Primary Care Provider [phone] Reason for Visit * Auth/Cert (Routine) Specialty Diagnoses / Procedures Referred By Contac t Referred To Contact Diagnoses Left bundle-branch block, unspecified Other cardiomyopathies Left bundle branch block [I44.7]Nonischemic cardiomyopathy [I42.8] Procedures PRG CATH PLMT LEFT HEART CATH & ARTS W/INJ & ANGIO IMG S&I ELECTROPHYSIOLOGY PROCEDURE Lalit Mcmahon MD [facility] [place] [address] [facility] Referral ID Status Reason Start Date Expiration Date Visits Re quested Visits Authorized [id number] 1 1 Encounter Details Date Type Department Care Team (Late st Contact Info) Description 07/23/2022 1:00 PM EDT - 07/23/2022 5:30 PM EDT Surgery [place] [address] Lalit Mcmahon MD [facility] [place] [address] ELECTROPHYSIOLOGY PROCEDURE Social History Tobacco Use Types [...] Luna Mott Patient Age: 71 y.o. Language: Ghanaian Race: White Ethnicity: Not nor Admit date: 07/23/2022 Discharge date and time: 07/24/22 Attending Physician: Lalit Mcmahon MD Discharge Physician: Lalit Mcmahon MD Follow-up Recommendations for Providers: - s/p CLOTHES SHAKER-D implant - post implant QRS 130 ms - reviewed post-implant instructions - no medication changes - Follow up in device clinic for wound/device check in ~10 days ([facility]) Inpatient Provider Contact Information: Cardiac Electrophysiology - Discharge Diagnoses (Hospital Problems) and Secondary Diagnoses (Chronic Problems): Active Hospital Problems Diagnosis ??? HFrEF (heart failure with reduced ejection fraction) Resolved Hospital Problems No resolved problems to display. Active Non-Hospital Problems Diagnosis ??? Dermatofibroma ??? Nevus ??? Solar lentigo Operations/Major Procedures: 07/23/22: [facility] ACCESS H[facility]PITAL CLOTHES SHAKER-D implant History of Presentation: 71 y.o. female with a history of HFrEF, LBBB, QRS >150, NYHA II who is POD#1 of CLOTHES SHAKER-D implant (Hemet Sci). Hospital Course: Elective admission for CLOTHES SHAKER-D implant Admitted post-implant for pain management, telemetry [...] (heart failure with reduced ejection fraction) [I50.20] CLOTHES SHAKER-D implant Admission Condition: good Indication for Admission: [...] g Refills: 3 fluticasone propionate 50 mcg/actuation [place], Suspension Commonly known as: Flonase 1 spray [...] incision. Make sure to use a clothing sorter (such as a towel) in between the [...] F. The office scheduling phone number is [phone]. ARM MOVEMENT RESTRICTIONS POST-IMPLANT - Do not [...] please call the Cardiac ElectrophysiologyTriage Nurse at [phone], option 3. General Instructions None Discharge References/Attachments [...] incision. Make sure to use a clothing sorter (such as a towel) in between the [...] F. The office scheduling phone number is [phone]. ARM MOVEMENT RESTRICTIONS POST-IMPLANT - Do not [...] please call the Cardiac ElectrophysiologyTriage Nurse at [phone], option 3. documented in this encounter Medications [...] Cardiac Electrophysiology Post-Implant Device Interrogation Luna Mott [id number] 07/24/2022 History: Luna Mott is a 71 y.o. female with a history of HFrEF, LBBB, QRS >150, NYHA II who is POD#1 of CLOTHES SHAKER-D implant (Hemet Sci). Overall feels well this morning. Ready [...] WOB Neuro- A&Ox3 Device Interrogation: Data ?? Pet Trainer Model # Serial # Generator [employer] [id number] Atrial Lead [employer] [id number] RV Lead [employer] [id number] LV Lead [employer] [id number] ?? Diagnostics Pacing Mode: DDD 60-130 Underlying Rhythm: [place] Atrial Episodes: None Ventricular Episodes: None FINAL PROGRAMMING: Pacing: Mode Lower rate (ppm) Upper rate (ppm) ?? DDD 60 130 VF: Rate (bpm) #Antitachycardia pacing First shock energy (J) ?? 200 Quick convert 41 VT: 170 Monitor only Monitor only ? Battery and Leads Impedances (ohms) Sensing (mV) Thresholds HV RA RV LV RA RV LV RA RV LV 73 540 002 6322 (LVa) 7.7 13.1 >25 0.4V @ 0.4 ms 0.4V @ 0.4 ms 0.5 V @ 1.0 ms POD#1 CXR: All leads in nominal positioning Impression: 71 y.o. female who is s/p CLOTHES SHAKER-D implant for LBBB, NYHA II, HFrEF. - Appropriate device function post-implant - CXR negative for post-implant complications - Changed sensed AV delay from 130 to 110 Plan: 1. Reviewed standard post-implant discharge instructions (see patient instructions) including arm restrictions, wound care, bathing, and driving 2. No medication changes. 3. Follow up in device clinic for wound/device check in ~10 days ([facility]) Fadi Nunez MD 07/24/2022 Pager: [phone] I met with the patient today and [...] agreement. ? Dr. Lalit Mcmahon, electrophysiology attending ([id number]) * Zaria Wright RN - 07/23/2022 8:28 [...] HF, QRS > 150 ms presents for CLOTHES SHAKER-D placement. ROS: Denies recent fevers or chills [...] 0.9) flush 5 mL 5 mL Intravenous [id number] ramos MD ??? sodium chloride 0.9 % [...] HF, QRS > 150 ms presents for CLOTHES SHAKER-D placement. Backup would be LBBAP lead. Antibiotics: cefazolin Rationales for, intended benefits and potential risk of planned procedures reviewed. The patient indicated understanding and agreement with the plan. Informed consent signed. Procedure checklist completed. Fadi Nunez MD Cardiac Electrophysiology Fellow [facility] Pager [phone] 07/23/2022 I met with the patient today [...] agreement. ? Dr. Lalit Mcmahon, electrophysiology attending ([id number]) documented in this encounter Miscellaneous Notes * Brief Op Note - Lalit Mcmahon MD - 07/23/2022 4:04 PM EDT Brief Operative Note Patient Name: Luna Mott : [id number] MR#: [id number] Case Date: 07/23/2022 Surgeon: Surgeon(s) and Role: [...] Encounter Non[place] [address] Arrived Scheduled Orders Name Type Priority Associated Diagnoses Orde r Schedule EKG 12 Lead ECG Routine Cardiac resynchronization therapy defibrillator (CLOTHES SHAKER-D) in place One Time for 1 Occurrences [...] (Bezet) 522 ms MUSE SYSTEM Calculated R [place] 78 degrees MUSE SYSTEM Calculated T [place] -71 degrees MUSE SYSTEM INTERPRETATION AV dual-paced [...] have questions please contact the health manager career that requested your imaging first. ? Electronically signed by: Kwame Vargas MD, [facility] ([phone]), at 07/24/2022 6:43 AM Narrative 07/24/2022 6:43 [...] who have questions please contactthe health manager career that requested your imaging first. Electronically signed by: Kwame Vargas MD, [facility]([phone]), at 07/24/2022 6:43 AM Lalit Mcmahon MD IMG DX ORDERABLES * ELECTROPHYSIOLOGY PROCEDURE (07/23/2022 1:11 PM EDT) Anatomical Region Laterality Modality Other Narrative 07/23/2022 4:24 PM EDT Table formatting from the original result was not included. BIVENTRICULAR ICD IMPLANTATION Cytology Technologist: Lalit Mcmahon MD Fellow: Fadi Nunez MD [...] lateral branch of the CS in the [place]DI[place] view. This branch was cannulated with a [...] the entire procedure. LEAD AND GENERATOR DATA: Pet Trainer Model # Serial # Generator [employer] [id number] Atrial Lead [employer] [id number] [id number] RV Lead [employer] 0672 [id number] LV Lead [employer] [id number] PACE/SENSE DATA: Sensed wave (mV) Threshold (V) [...] (cGycm2) 300 CONCLUSIONS: Successful implantation of a [employer] biventricular ICD for primary prevention and treatment of symptoms related to congestive heart failure. Follow up in EP clinic in 1-2 months. Procedures performed: new ICD system ( cpt 56598-J2); implant LV lead at time of ICD insertion (cpt 56155) I have read, edited and approve of this report: Lalit Mcmahon MD [facility] Cardiac Electrophysiology 07/23/2022 4:22 PM Procedure Note Lalit Mcmahon MD - 07/23/2022 BIVENTRICULAR ICD IMPLANTATION Cytology Technologist: Lalit Mcmahon MD Fellow: Fadi Nunez MD [...] appropriate lateralbranch of the CS in the [place] view. This branch was cannulated with a [...] in the entireprocedure. LEAD AND GENERATOR DATA: Pet Trainer Model # Serial # Generator [employer] [id number] Atrial Lead [employer] [id number] [id number] RV Lead [employer] 0672 247267 LV Lead [employer] 4674 [id number] PACE/SENSE DATA: Sensed wave (mV) Threshold (V) [...] (cGycm2) 300 CONCLUSIONS: Successful implantation of a [employer] biventricular ICD forprimary prevention and treatment of symptoms related to congestive heartfailure. Follow up in EP clinic in 1-2 months. Procedures performed: new ICD system ( cpt 55245-S4); implant LV lead attime of ICD insertion (cpt 23674) I have read, edited and approve of this report: Lalit Mcmahon MD S Cardiac Electrophysiology 07/23/2022 4:22 PM Lalit Mcmahon MD EP PROCEDURE ORDERAB LES * POCT Glucose (07/23/2022 12:54 PM EDT) [facility] Signature Glucose, POC 83 65 - 199 mg/dL [facility] Comment: Supplemental ranges: <140 mg/dL before meals <180 mg/dL all other times of the day Blood 07/23/2022 12:5 4 PM EDT 07/23/2022 12:54 PM EDT Lalit Mcmahon MD POINT OF CARE TEST O RDERABLES Performing Organization Address City/[facility]/ZIP Co de Phone Number [facility] [place] [address] * EKG 12 Lead (07/23/2022 12:33 PM EDT) Ventricular rate 72 BPM MUSE SYSTEM Atrial Rate 72 BPM MUSE SYSTEM P-R Interval 158 ms MUSE SYSTEM QRS Duration 176 ms MUSE SYSTEM Q-T Interval 458 ms MUSE SYSTEM QTC Calculated (Bezet) 501 ms MUSE SYSTEM Calculated P [place] 34 degrees MUSE SYSTEM Calculated R [place] 12 degrees MUSE SYSTEM Calculated T [place] -173 degrees MUSE SYSTEM INTERPRETATION Normal sinus rhythm Left bundle branch block Abnormal ECG No previous ECGs available Confirmed by MD Salome, Lalit ([id number]) on 07/23/2022 1:19:03 PM MUSE SYSTEM 07/23/2022 12:3 3 PM EDT 07/23/2022 1:19 PM EDT Lalit Mcmahon MD ECG ORDERABLES Performing Organization Address [facility]/ZIP Co de Phone Number MUSE SYSTEM * Differential, Automated (07/23/2022 11:55 AM EDT) Neutrophil % 62.6 % [facility] Neutrophil Absolute 4.14 1.70 - 6.10 x10(3)/[facility] Lymph % 27.0 % [facility] Lymphocytes Abs 1.8 0.9 - 3.2 x10(3)/[facility] LAB[facility]AT[facility] Monocyte % 7.3 % [facility] Monocyte Abs 0.5 0.3 - 0.9 x10(3)/[facility] Eos % 2.3 % [facility] Eosinophils Abs 0.2 0.0 - 0.4 x10(3)/[facility] Basophil % 0.6 % [facility] ITAL LABORATORY Baso Absolute 0.0 0.0 - 0.1 x10(3)/[facility] Immature Gran % 0.20 % [facility] Comment: Immature granulocytes(IG's)percentage and absolute count will include metamyelocytes, myelocytes, and promyelocytes. Blood smears from CBCs yielding IG's will be scanned manually for concordance. If this scan disagrees with the automated IG or if promyelocytes are noted, a manual differential will be performed. Immature Gran Absolute 0.01 0.00 - 0.04 x10(3)/[facility] Blood 07/23/2022 11:5 5 AM EDT 07/23/2022 12:07 PM EDT Narrative Resulting Agency Comment Spec In Lab Lalit Mcmahon MD HEMATOLOGY ORDERABLE S [facility] [place] [address] * Hemogram (07/23/2022 11:55 AM EDT) White Blood Cell 6.6 4.0 - 9.5 x10(3)/[facility] Red Blood Cell 4.50 4.00 - 5.21 x10(6)/[facility] Hemoglobin 13.7 11.7 - 15.5 g/dL [facility] Hematocrit 42.5 35.7 - 45.8 % [facility] Mean Cell Volume 94.4 82.6 - 94.4 fL [facility] Mean Cell Hemoglobin 30.4 27.1 - 32.0 pg [facility] Mean Cell Hemoglobin Concentration 32.2 31.7 - 35.0 g/dL [facility] Platelet 193 145 - 357 x10(3)/[facility] RDW Standard Deviation 45.5 37.0 - 46.0 fL [facility] RDW coefficient of variation 13.2 11.5 - 14.1 % [facility] Mean Platelet Volume 9.5 7.6 - 12.9 fL [facility] NRBC% auto 0.0 % [facility] NRBC Absolute 0.000 0.000 - 0.000 x10(3)/[facility] Blood 07/23/2022 11:5 5 AM EDT 07/23/2022 12:07 PM EDT Narrative Resulting Agency Comment Spec In Lab Lalit Mcmahon MD HEMATOLOGY ORDERABLE S [facility] [place] [address] * (ABNORMAL) BMP w/fasting Glucose (07/23/2022 11:55 AM EDT) Glucose Fasting 110(H) 65 - 99 mg/dL [facility] Comment: ?Fasting* Glucose Interpretive Criteria Normal [...] of Diabetes Mellitus, Position Statement from the [place] Diabetes Association. ??Diabetes Care, Volume 33, Supplement 1, Mar 2009 Blood Urea Nitrogen 23(H) 8 - 18 mg/dL [facility] Creatinine 1.07 0.70 - 1.20 mg/dL [facility] Sodium 141 135 - 145 mmol/L [facility] Potassium 4.8 3.5 - 5.0 mmol/L [facility] Comment: Please note: ??Patients with WBC >100,000 may have falsely elevated Potassium levels. ??For accurate Potassium quantification in these patients send serum separator tube (gold top) for subsequent determinations. ??Contact the Clinical Chemistry Laboratory if there are any questions. Chloride 106 98 - 107 mmol/L [facility] Carbon Dioxide 26 22 - 31 mmol/L [facility] Anion Gap 9 5 - 15 mmol/L [facility] Calcium 9.7 8.5 - 10.5 mg/dL [facility] Est Glomerular Filtration Rate 55(L) >=60 mL/min/1. 73 m?? [facility] Comment: This patient's estimated GFR [...] CHEMISTRY ORDERABLES Performing Organization Address [facility] Co de Phone Number [facility] [place] [address] * Prothrombin Time (07/23/2022 11:55 AM EDT) Prothrombin Time 11.7 9.4 - 12.5 sec [facility] International Normalization Ratio 1.0 [facility] Comment: An INR <2.0 indicates adequate [...] Performing Organization Address City/[facility] Co de Phone Number [facility] [place] [address] documented in this encounter Visit Diagnoses Diagnosis HFrEF (heart failure with reduced ejection fraction)- Primary Left bundle branch block Other left bundle branch block Nonischemic cardiomyopathy Other primary cardiomyopathies Cardiac resynchronization therapy defibrillator (CLOTHES SHAKER-D) in place Left bundle branch block Other [...] Routine documented in this encounter Care Teams Precision Lens Polisher Relationship Specialty Start Date End Date Lolly Oliveira MD [address] [place] [address] PCP - General 07/17/13 documented as of this encounter
--- OUTSIDE RECORDS SUMMARY | 2023-11-17 10:48 | XMS_ITS | Encounter Summary ---
Author Organization [facility] [place] [address] Care Team Providers Care Stone Planer Name Role Phone Lolly Oliveira MD Primary Care Provider [phone] Reason for Visit * Reason Onset Date Comments Other 07/24/2022 Implanted Cardia c Device Teaching/Education Encounter Details Date Type Department Care Team (Late st Contact Info) Description 07/24/2022 Notes Only Cardiology at [address] [id number] Letha Arroyo Other (Implanted Cardiac Device Teaching/Education) [...] to call the Cardiac Device Clinic at [phone] with any questions. Plan: Post op check: [...] [facility] Hospital Encounter [place] [address] Arrived documented as of this encounter Visit Diagnoses Not on filedocumented in this encounter Care Teams Stone Planer Relationship Specialty Start Date End Date Lolly Oliveira MD [address] [place] [address] PCP - General 07/17/13 documented as of this encounter
--- OUTSIDE RECORDS SUMMARY | 2023-11-17 10:48 | XMS_ITS | Encounter Summary ---
Author Organization [facility] [place] [address] Care Team Providers Care Web Services Architect Name Role Phone Lolly Oliveira MD Primary Care Provider [phone] Reason for Visit * Reason Comments Follow-up Encounter Details Date Type Department Care Team (Late st Contact Info) Description 07/02/2022 8:00 AM EDT Office Visit Dermatology at [address] [phone] Clay Ramírez MD [address] [facility] [place] [address] Psoriasis, guttate Social History Tobacco Use Types [...] [facility] Hospital Encounter Non-[place]vasive [place] [address] Arrived documented as of this encounter Visit Diagnoses Diagnosis Psoriasis, guttate Other psoriasis documented in this encounter Care Teams Web Services Architect Relationship Specialty Start Date End Date Lolly Oliveira MD [address] [place] [address] PCP - General 07/17/13 documented as of this encounter
--- OUTSIDE RECORDS SUMMARY | 2023-11-17 10:48 | XMS_ITS | Encounter Summary ---
[place] [address] Care Team Providers Care Independent Producer Name Role Phone Lolly Oliveira MD Primary Care Provider [phone] Encounter Details Date Type Department Care Team (Late st Contact Info) Description 07/17/2013 Orders [place] [address] Lolyl Oliveira MD [address] [place], [place] [id number] Social History Tobacco Use Types Packs/Day Years [...] AM EST Hospital Encounter Non-Invasive [place] [address] Arrived documented as of this encounter Procedures Procedure Name Priority Date/Time Associated Diagnosis Comments REQUEST FOR 2ND READ MAMMO Routine 07/17/2013 8:45 AM EDT documented in this encounter Results * Request for 2nd read Mammo (07/17/2013 8:45 AM EDT) Anatomical Region Laterality Modality Other 07/17/2013 8:45 AM EDT Narrative 07/17/2013 3:57 PM EDT INTERPRETATION OF OUTSIDE MAMMOGRAMS (PERFORMED ON 07/06/13 AND 07/14/13) FROM [facility] DATED 07/17/13: ?? DIAGNOSTIC IMAGING SUMMARY: [...] OUTSIDE MAMMOGRAMS (PERFORMED ON 07/06/13 AND 07/14/13) [facility] DATED 07/17/13: DIAGNOSTIC IMAGING [...] on filedocumented in this encounter Care Teams Independent Producer Relationship Specialty Start Date End Date Lolly Oliveira MD [address] [place] [address] PCP - General 07/17/13 documented as of this encounter
--- OUTSIDE RECORDS SUMMARY | 2023-11-17 10:48 | XMS_ITS | Encounter Summary ---
Author Organization [place] [address] Care Team Providers Care Store Consultant Name Role Phone Lolly Oliveira MD Primary Care Provider [phone] Encounter Details Date Type Department Care Team (Latest Contact Info) Description 10/23/2022 10:00 AM EDT - 10/23/2022 11:59 PM EDT Hospital Encounter Non-Invasive [place] [phone] Discharge Disposition: Home Social History Tobacco Use [...] with spacer fluticasone propionate (Flonase) 50 mcg/actuation [place], Suspension 1 spray by Each Nare route [...] [facility] Hospital Encounter Non-[place] [address] Arrived documented as of this [...] filedocumented in this encounter Care Teams Store Consultant Relationship Specialty Start Date End Date Lolly Oliveira MD [address] [place] [address] PCP - General 07/17/13 documented as of this encounter
--- OUTSIDE RECORDS SUMMARY | 2023-11-17 10:48 | XMS_ITS | Encounter Summary ---
[place] [address] Care Team Providers Care Cad Draftsman Name Role Phone Lolly Oliveira MD Primary Care Provider [phone] Encounter Details Date Type Department Care Team [...] AM EST Hospital Encounter Non-Invasive [place] [address] Arrived documented as of this encounter Visit Diagnoses Not on filedocumented in this encounter Care Teams Cad Draftsman Relationship Specialty Start Date End Date Lolly Oliveira MD [address] [place] [address] PCP - General 07/17/13 documented as of this encounter
--- OUTSIDE RECORDS SUMMARY | 2023-11-17 10:49 | XMS_ITS | Encounter Summary ---
Author Organization [facility] [place] [address] Care Team Providers Care Team Facilitator Name Role Phone Unavailable Primary Care Provider Unavailabl e Encounter Details Date Type Department Care Team (Late st Contact Info) Description 07/14/2013 [place] [phone] Eleno Christian MD [facility] DIAGNOSTIC [place] [address] Social History Tobacco Use Types Packs/Day Years [...] AM EST Hospital Encounter Non-[place] [address] Arrived documented as of this encounter Visit Diagnoses Not on filedocumented in this encounter
--- OUTSIDE RECORDS SUMMARY | 2023-11-17 10:49 | XMS_ITS | Encounter Summary ---
Author Organization [facility] [place] [address] Care Team Providers Care Clinical Laboratory Scientist Name Role Phone Unavailable Primary Care Provider Unavailabl e Encounter Details Date Type Department Care Team (Late st Contact Info) Description 07/04/2012 [place] [phone] Eleno Christian MD [facility] [place] [address] Social History Tobacco Use Types Packs/Day Years [...] AM EST Hospital Encounter Non-[place] [address] Arrived documented as of this encounter Procedures [...] is a Non-reportable exam Eleno Christian MD [facility] FILM LIBRARY ORD ERABLES documented in this encounter Visit Diagnoses Not on filedocumented in this encounter
--- OUTSIDE RECORDS SUMMARY | 2023-11-17 10:49 | XMS_ITS | Encounter Summary ---
Author Organization [facility] [place] [address] Care Team Providers Care Belt Fixer Name Role Phone Unavailable Primary Care Provider Unavailabl e Encounter Details Date Type Department Care Team (Late st Contact Info) Description 07/14/2013 External Results XRay at [address] [place] [address] Provider, Scanning Social History Tobacco Use Types [...] EST Hospital Encounter Non-Invasive Cardiology Lab [facility] [place] [address] Arrived documented as of this encounter Procedures [...]
--- OUTSIDE RECORDS SUMMARY | 2023-11-17 10:49 | XMS_ITS | Encounter Summary ---
Author Organization [facility] [place] [address] Care Team Providers Care Drafting Layout Worker Name Role Phone Lolly Oliveira MD Primary Care Provider [phone] Encounter Details Date Type Department Care Team (Late st Contact Info) Description 06/29/2011 [place] [phone] Eleno Christian MD [facility] [place] [address] Social History Tobacco Use Types Packs/Day Years [...] AM EST Hospital Encounter Non-Invasive [place] [phone] Arrived documented as of this encounter Procedures [...] is a Non-reportable exam Eleno Christian MD [facility] FILM LIBRARY ORD ERABLES documented in this encounter Visit Diagnoses Not on filedocumented in this encounter Care Teams Drafting Layout Worker Relationship Specialty Start Date End Date Lolly Oliveira MD [address] [place] [address] PCP - General 07/17/13 documented as of this encounter
[2023-11-17 10:53] VITALS: BP 124/64; PULSE 73; O2SAT 93
--- OUTSIDE RECORDS SUMMARY | 2023-11-19 11:10 | XMS_ITS | Encounter Summary ---
Author Organization [facility] [place] [address] Care Team Providers Care Lime Supervisor Name Role Phone Lolly Oliveira MD Primary Care Provider [phone] Encounter Details Date Type Department Care Team (Latest Contact Info) Description 01/21/2023 10:00 AM EST - 01/21/2023 11:59 PM EST Hospital Encounter Non-[place] [phone] Discharge Disposition: Home Social History Tobacco Use [...] with spacer fluticasone propionate (Flonase) 50 mcg/actuation [place], Suspension 1 spray by Each Nare route [...] Hospital Encounter Non-[place] [address] Arrived documented as of this [...] on filedocumented in this encounter Care Teams Lime Supervisor Relationship Specialty Start Date End Date Lolly Oliveira MD [address] [place] [address] PCP - General 07/17/13 documented as of this encounter
--- OUTSIDE RECORDS SUMMARY | 2023-11-19 11:10 | XMS_ITS | Encounter Summary ---
Author Organization [facility] [place] [address] Care Team Providers Care Supervisor Pole Yard Name Role Phone Lolly Oliveira MD Primary Care Provider [phone] Encounter Details Date Type Department Care Team (Late st Contact Info) Description 11/16/2022 Telephone Cardiology at [address] [phone] Luna Rousseau, RN Social History Tobacco Use Types Packs/Day Years Used Date Smoking Tobacco: Never Alcohol Use Standard Drinks/Week Comments Not Currently 0 (1 standard drink = 0.6 oz pur e alcohol) [facility] Inpatient Questions Answer Date Recorded [...] today was 118/57 at CR at [facility] Pt is going twice a week [...] [facility] Hospital Encounter Non-Invasive [place] [phone] Arrived documented as of this encounter Visit Diagnoses Not on filedocumented in this encounter Care Teams Supervisor Pole Yard Relationship Specialty Start Date End Date Lolly Oliveira MD [address] [place] [address] PCP - General 07/17/13 documented as of this encounter
--- OUTSIDE RECORDS SUMMARY | 2023-11-19 11:10 | XMS_ITS | Encounter Summary ---
Author Organization [facility] [address] Care Team Providers Care Stationary Engineer Name Role Phone Lolly Oliveira MD Primary Care Provider [phone] Encounter Details Date Type Department Care Team (Late st Contact Info) Description 05/18/2023 Refill Dermatology at [address] [address] Nora Meredith LPN Social History [...] voiced understanding. Order sent to [facility] drug. documented in this encounter Plan of Treatment Upcoming Encounters Date Type Department Care Team (Late st Contact Info) Description 01/16/2024 10:00 AM EST Hospital Encounter Non-Invasive [place] [address] Arrived documented as of this encounter Visit Diagnoses Not on filedocumented in this encounter Care Teams Stationary Engineer Relationship Specialty Start Date End Date Lolly Oliveira MD [address] [place] [address] PCP - General 07/17/13 documented as of this encounter
--- OUTSIDE RECORDS SUMMARY | 2023-11-19 11:10 | XMS_ITS | Encounter Summary ---
Author Organization [facility] Address [facility] [place] [address] Care Team Providers Care Value Analyst Name Role Phone Lolly Oliveira MD Primary Care Provider [phone] Reason for Visit * Auth/Cert (Routine) Specialty Diagnoses / Procedures Referred By Contac t Referred To Contact Diagnoses Left bundle-branch block, unspecified Other cardiomyopathies Left bundle branch block [I44.7]Nonischemic cardiomyopathy [I42.8] Procedures PRG CATH PLMT LEFT HEART CATH & ARTS W/INJ & ANGIO IMG S&I ELECTROPHYSIOLOGY PROCEDURE Lalit Mcmahon MD [facility] [place] [address] [facility] Referral ID Status Reason Start Date Expiration Date Visits Re quested Visits Authorized [id number] 1 1 Encounter Details Date Type Department Care Team (Latest Contact Info) Description 07/23/2022 11:39 AM EDT - 07/24/2022 10:23 AM EDT Hospital [place] [phone] Lalit Mcmahon MD [facility] [place] [address] Left bundle branch block; Nonischemic cardiomyopathy; Cardiac resynchronization therapy defibrillator (DOCUMENT CLERK-D) in place Discharge Disposition: Home Social History [...] Luna Mott Patient Age: 71 y.o. Language: Zambian Race: White Ethnicity: Not nor Admit date: 07/23/2022 Discharge date and time: 07/24/22 Attending Physician: Lalit Mcmahon MD Discharge Physician: Lalit Mcmahon MD Follow-up Recommendations for Providers: - s/p DOCUMENT CLERK-D implant - post implant QRS 130 ms - reviewed post-implant instructions - no medication changes - Follow up in device clinic for wound/device check in ~10 days ([facility]) Inpatient Provider Contact Information: Cardiac Electrophysiology - Discharge Diagnoses (Hospital Problems) and Secondary Diagnoses (Chronic Problems): Active Hospital Problems Diagnosis ??? HFrEF (heart failure with reduced ejection fraction) Resolved Hospital Problems No resolved problems to display. Active Non-Hospital Problems Diagnosis ??? Dermatofibroma ??? Nevus ??? Solar lentigo Operations/Major Procedures: 07/23/22: [facility] DOCUMENT CLERK-D implant History of Presentation: 71 y.o. female with a history of HFrEF, LBBB, QRS >150, NYHA II who is POD#1 of DOCUMENT CLERK-D implant ([employer]). Hospital Course: Elective admission for DOCUMENT CLERK-D implant Admitted post-implant for pain management, telemetry [...] (heart failure with reduced ejection fraction) [I50.20] DOCUMENT CLERK-D implant Admission Condition: good Indication for Admission: [...] g Refills: 3 fluticasone propionate 50 mcg/actuation [place], Suspension Commonly known as: Flonase 1 spray [...] the incision. Make sure to use a dish cloth inspector (such as a towel) in between the [...] F. The office scheduling phone number is [phone]. ARM MOVEMENT RESTRICTIONS POST-IMPLANT - Do not [...] please call the Cardiac ElectrophysiologyTriage Nurse at [phone], option 3. General Instructions None Discharge References/Attachments None Lalit Mcmahon MD S Cardiac Electrophysiology 07/24/2022 12:33 PM documented in this encounter Discharge Instructions * Patient Instructions* Fadi Nunez MD - 07/24/2022 8:10 AM EDT FINAL ICD/PACEMAKER RECOMMENDATIONS: 1. Standard post implant discharge instructions (see below): 2. Medications as listed above. You may use ice packs over the incision. Make sure to use a dish cloth inspector (such as a towel) in between the [...] F. The office scheduling phone number is [phone]. ARM MOVEMENT RESTRICTIONS POST-IMPLANT - Do not [...] please call the Cardiac ElectrophysiologyTriage Nurse at [phone], option 3. documented in this encounter Medications [...] with spacer fluticasone propionate (Flonase) 50 mcg/actuation [place], Suspension 1 spray by Each Nare [...] Cardiac Electrophysiology Post-Implant Device Interrogation Luna Mott [id number] 07/24/2022 History: Luna Mott is a 71 y.o. female with a history of HFrEF, LBBB, QRS >150, NYHA II who is POD#1 of DOCUMENT CLERK-D implant ([employer]). Overall feels well this morning. Ready [...] WOB Neuro- A&Ox3 Device Interrogation: Data ?? Family Educator Model # Serial # Generator [employer] [id number] Atrial Lead [employer] [id number] RV Lead [employer] 0672 [id number] LV Lead [employer] [id number] ?? Diagnostics Pacing Mode: DDD 60-130 Underlying Rhythm: [place] Atrial Episodes: None Ventricular Episodes: None FINAL PROGRAMMING: Pacing: Mode Lower rate (ppm) Upper rate (ppm) ?? DDD 60 130 VF: Rate (bpm) #Antitachycardia pacing First shock energy (J) ?? 200 Quick convert 41 VT: 170 Monitor only Monitor only ? Battery and Leads Impedances (ohms) Sensing (mV) Thresholds HV RA RV LV RA RV LV RA RV LV 73 330 767 3915 (LVa) 7.7 13.1 >25 0.4V @ 0.4 ms 0.4V @ 0.4 ms 0.5 V @ 1.0 ms POD#1 CXR: All leads in nominal positioning Impression: 71 y.o. female who is s/p DOCUMENT CLERK-D implant for LBBB, NYHA II, HFrEF. - Appropriate device function post-implant - CXR negative for post-implant complications - Changed sensed AV delay from 130 to 110 Plan: 1. Reviewed standard post-implant discharge instructions (see patient instructions) including arm restrictions, wound care, bathing, and driving 2. No medication changes. 3. Follow up in device clinic for wound/device check in ~10 days ([facility]) Fadi Nunez MD 07/24/2022 Pager: [phone] I met with the patient today and [...] agreement. ? Dr. Lalit Mcmahon, electrophysiology attending ([id number]) * Zaria Wright RN - 07/23/2022 8:28 [...] HF, QRS > 150 ms presents for DOCUMENT CLERK-D placement. ROS: Denies recent fevers or chills [...] 0.9) flush 5 mL 5 mL Intravenous [id number] ramos MD ??? sodium chloride 0.9 % [...] HF, QRS > 150 ms presents for DOCUMENT CLERK-D placement. Backup would be LBBAP lead. Antibiotics: cefazolin Rationales for, intended benefits and potential risk of planned procedures reviewed. The patient indicated understanding and agreement with the plan. Informed consent signed. Procedure checklist completed. Fadi Nunez MD Cardiac Electrophysiology Fellow [facility] Pager [phone] 07/23/2022 I met with the patient today [...] agreement. ? Dr. Lalit Mcmahon, electrophysiology attending ([id number]) documented in this encounter Miscellaneous Notes * Brief Op Note - Lalit Mcmahon MD - 07/23/2022 4:04 PM EDT Brief Operative Note Patient Name: Luna Mott : [id number] MR#: [id number] Case Date: 07/23/2022 Surgeon: Surgeon(s) and Role: [...] AM EST Hospital Encounter Non-[place] [address] Arrived Scheduled Orders Name Type Priority Associated Diagnoses Orde r Schedule EKG 12 Lead ECG Routine Cardiac resynchronization therapy defibrillator (DOCUMENT CLERK-D) in place One Time for 1 Occurrences [...] (Bezet) 522 ms MUSE SYSTEM Calculated R [place] 78 degrees MUSE SYSTEM Calculated T [place] -71 degrees MUSE SYSTEM INTERPRETATION AV dual-paced [...] who have questions please contact the health eye care professional that requested your imaging first. ? Electronically signed by: Kwame Vargas MD, [facility] ([phone]), at 07/24/2022 6:43 AM Narrative 07/24/2022 6:43 [...] patients who have questions please contactthe health eye care professional that requested your imaging first. Electronically signed by: Kwame Vargas MD, [facility]([phone]), at 07/24/2022 6:43 AM Lalit Mcmahon MD IMG DX ORDERABLES * ELECTROPHYSIOLOGY PROCEDURE (07/23/2022 1:11 PM EDT) Anatomical Region Laterality Modality Other Narrative 07/23/2022 4:24 PM EDT Table formatting from the original result was not included. BIVENTRICULAR ICD IMPLANTATION Biomedical Equipment Support Specialist: Lalit Mcmahon MD Fellow: Fadi Nunez [...] lateral branch of the CS in the KHMER view. This branch was cannulated with a [...] the entire procedure. LEAD AND GENERATOR DATA: Family Educator Model # Serial # Generator [employer] [id number] Atrial Lead [employer] [id number] RV Lead [employer] 0672 [id number] LV Lead [employer] [id number] PACE/SENSE DATA: Sensed wave (mV) Threshold (V) [...] (cGycm2) 300 CONCLUSIONS: Successful implantation of a [employer] biventricular ICD for primary prevention and treatment of symptoms related to congestive heart failure. Follow up in EP clinic in 1-2 months. Procedures performed: new ICD system ( cpt 53710-G3); implant LV lead at time of ICD insertion (cpt 80759) I have read, edited and approve of this report: Lalit Mcmahon MD S Cardiac Electrophysiology 07/23/2022 4:22 PM Procedure Note Lalit Mcmahon MD - 07/23/2022 BIVENTRICULAR ICD IMPLANTATION Biomedical Equipment Support Specialist: Lalit Mcmahon MD Fellow: Fadi Nunez [...] appropriate lateralbranch of the CS in the KHMER view. This branch was cannulated with a [...] in the entireprocedure. LEAD AND GENERATOR DATA: Family Educator Model # Serial # Generator [employer] [id number] Atrial Lead [employer] 7841 [id number] RV Lead [employer] 0672 982282 LV Lead [employer] [id number] [id number] PACE/SENSE DATA: Sensed wave (mV) Threshold (V) [...] (cGycm2) 300 CONCLUSIONS: Successful implantation of a [employer] biventricular ICD forprimary prevention and treatment of symptoms related to congestive heartfailure. Follow up in EP clinic in 1-2 months. Procedures performed: new ICD system ( cpt 77586-C9); implant LV lead attime of ICD insertion (cpt 77554) I have read, edited and approve of this report: Lalit Mcmahon MD [facility] Cardiac Electrophysiology 07/23/2022 4:22 PM Lalit Mcmahon MD EP PROCEDURE ORDERAB LES * POCT Glucose (07/23/2022 12:54 PM EDT) Glucose, POC 83 65 - 199 mg/dL [facility] Comment: Supplemental ranges: <140 mg/dL before meals <180 mg/dL all other times of the day Blood 07/23/2022 12:5 4 PM EDT 07/23/2022 12:54 PM EDT Lalit Mcmahon MD POINT OF CARE TEST O RDERABLES Performing Organization Address [facility] Co de Phone Number [facility] [place] [place] [address] * EKG 12 Lead (07/23/2022 12:33 PM EDT) Ventricular rate 72 BPM MUSE SYSTEM Atrial Rate 72 BPM MUSE SYSTEM P-R Interval 158 ms MUSE SYSTEM QRS Duration 176 ms MUSE SYSTEM Q-T Interval 458 ms MUSE SYSTEM QTC Calculated (Bezet) 501 ms MUSE SYSTEM Calculated P [place] 34 degrees MUSE SYSTEM Calculated R [place] 12 degrees MUSE SYSTEM Calculated T [place] -173 degrees MUSE SYSTEM INTERPRETATION Normal sinus rhythm Left bundle branch block Abnormal ECG No previous ECGs available Confirmed by MD Salome, Lalit ([id number]) on 07/23/2022 1:19:03 PM MUSE SYSTEM 07/23/2022 12:3 3 PM EDT 07/23/2022 1:19 PM EDT Lalit Mcmahon MD ECG ORDERABLES Performing Organization Address [facility] de Phone Number MUSE SYSTEM * Differential, Automated (07/23/2022 11:55 AM EDT) Neutrophil % 62.6 % [facility] Neutrophil Absolute 4.14 1.70 - 6.10 x10(3)/[facility] Lymph % 27.0 % [facility] Lymphocytes Abs 1.8 0.9 - 3.2 x10(3)/[facility] Monocyte % 7.3 % [facility] Monocyte Abs 0.5 0.3 - 0.9 x10(3)/[facility] Eos % 2.3 % [facility] Eosinophils Abs 0.2 0.0 - 0.4 x10(3)/[facility] Basophil % 0.6 % [facility] Baso Absolute 0.0 0.0 - 0.1 x10(3)/[facility] Immature Gran % 0.20 % [facility] Comment: Immature granulocytes(IG's)percentage and [...] Lab Lalit Mcmahon MD HEMATOLOGY ORDERABLE S [facility] [address] * Hemogram (07/23/2022 11:55 AM EDT) White Blood Cell 6.6 4.0 - 9.5 x10(3)/[facility] Red Blood Cell 4.50 4.00 - 5.21 x10(6)/[facility] Hemoglobin 13.7 11.7 - 15.5 g/dL [facility] Hematocrit 42.5 35.7 - 45.8 % [facility] Mean Cell Volume 94.4 82.6 - 94.4 fL [facility] Mean Cell Hemoglobin 30.4 27.1 - 32.0 pg [facility] Mean Cell Hemoglobin Concentration 32.2 31.7 - 35.0 g/dL [facility] Platelet 193 145 - 357 x10(3)/[facility] RDW Standard Deviation 45.5 37.0 - 46.0 fL [facility] RDW coefficient of variation 13.2 11.5 - 14.1 % [facility] Mean Platelet Volume 9.5 7.6 - 12.9 fL [facility] NRBC% auto 0.0 % [facility] NRBC Absolute 0.000 0.000 - 0.000 x10(3)/mcL [facility] Blood 07/23/2022 11:5 5 AM EDT 07/23/2022 12:07 PM EDT Narrative Resulting Agency Comment Spec In Lab Lalit Mcmahon MD HEMATOLOGY ORDERABLE S [facility] [address] [place] [address] * (ABNORMAL) BMP w/fasting Glucose (07/23/2022 11:55 AM EDT) Glucose Fasting 110(H) 65 - 99 mg/dL [facility] Comment: ?Fasting* Glucose Interpretive [...] of Diabetes Mellitus, Position Statement from the [place] [employer]. ??Diabetes Care, Volume 33, Supplement 1, Mar 2009 Blood Urea Nitrogen 23(H) 8 - 18 mg/dL [facility] Creatinine 1.07 0.70 - 1.20 mg/dL [facility] Sodium 141 135 - 145 mmol/L [facility] Potassium 4.8 3.5 - 5.0 mmol/L [facility] Comment: Please note: ??Patients with WBC >100,000 may have falsely elevated Potassium levels. ??For accurate Potassium quantification in these patients send serum separator tube (gold top) for subsequent determinations. ??Contact the Clinical Chemistry Laboratory if there are any questions. Chloride 106 98 - 107 mmol/L [facility] Carbon Dioxide 26 22 - 31 mmol/L [facility] Anion Gap 9 5 - 15 mmol/L [facility] Calcium 9.7 8.5 - 10.5 mg/dL [facility] Est Glomerular Filtration Rate 55(L) >=60 mL/min/1. 73 m?? [facility] Comment: This patient's estimated [...] Mcmahon MD CHEMISTRY ORDERABLES Performing Organization Address [facility] Co de Phone Number [facility] [address] * Prothrombin Time (07/23/2022 11:55 AM EDT) Prothrombin Time 11.7 9.4 - 12.5 sec [facility] International Normalization Ratio 1.0 [facility] Comment: An INR <2.0 [...] Performing Organization Address City/[facility] Co de Phone Number [facility] [address] documented in this encounter Visit Diagnoses Diagnosis HFrEF (heart failure with reduced ejection fraction)- Primary Left bundle branch block Other left bundle branch block Nonischemic cardiomyopathy Other primary cardiomyopathies Cardiac resynchronization therapy defibrillator (DOCUMENT CLERK-D) in place Left bundle branch block Other [...] Routine documented in this encounter Care Teams Value Analyst Relationship Specialty Start Date End Date Lolly Oliveira MD [address] [place] [address] PCP - General 07/17/13 documented as of this encounter
--- OUTSIDE RECORDS SUMMARY | 2023-11-19 11:10 | XMS_ITS | Encounter Summary ---
Author Organization [facility] [place] [address] Care Team Providers Care Learning Center Instructor Name Role Phone Lolly Oliveira MD Primary Care Provider [phone] Encounter Details Date Type Department Care Team (Late st Contact Info) Description 03/17/2023 Telephone Cardiology at [address] [phone] Saranya Ma Social History Tobacco Use Types [...] AM EST Echo order faxed to [facility] at [phone]. No Prior auth needed. Ref #:[id number]. Saranya Ma Sr. Clinical Procedure [place]/Primary Special Education Teacher documented in this encounter Plan of Treatment Upcoming Encounters Date Type Department Care Team (Late st Contact Info) Description 01/16/2024 10:00 AM [facility] Hospital Encounter [place] [address] Arrived documented as of this encounter Visit Diagnoses Not on filedocumented in this encounter Care Teams Learning Center Instructor Relationship Specialty Start Date End Date Lolly Oliveira MD [address] [place] [address] PCP - General 07/17/13 documented as of this encounter
--- OUTSIDE RECORDS SUMMARY | 2023-11-19 11:10 | XMS_ITS | Encounter Summary ---
Author Organization [facility] Address [facility] [place] [address] Care Team Providers Care Denitrator Operator Name Role Phone Lolly Oliveira MD Primary Care Provider [phone] Encounter Details Date Type Department Care Team (Late st Contact Info) Description 01/29/2023 Notes Only Cardiology at [address] [address] Merle Lin PA [facility] [place] [address] Social History Tobacco Use Types Packs/Day Years [...] pdf document Date of transmission: 01/29/2023 Device pmo business analyst: BSI Device type: FINANCIAL SERVICES DIRECTOR-D Presenting rhythm: /RVP/LVP AP 21% Right HEAT SEALING MACHINE OPERATOR 100% Left HEAT SEALING MACHINE OPERATOR: 100% Battery: 10.5 years [employer] Index rising in setting of increasing S3 intensity, increasing respiratory rate, increasing night heart rate, and increasing mean heart rate. MICKEY Villa 01/29/2023 9:06 AM documented in this encounter Plan of Treatment Upcoming Encounters Date Type Department Care Team (Late st Contact Info) Description 01/16/2024 10:00 AM EST Hospital Encounter Non[place] [address] Arrived documented as of this encounter Visit Diagnoses Not on filedocumented in this encounter Care Teams Denitrator Operator Relationship Specialty Start Date End Date Lolly Oliveira MD [address] [place] [address] PCP - General 07/17/13 documented as of this encounter
--- OUTSIDE RECORDS SUMMARY | 2023-11-19 11:10 | XMS_ITS | Encounter Summary ---
Author Organization [facility] Address [address] [place] [address] Care Team Providers Care Remedial Reading Teacher Name Role Phone Lolly Oliveira MD Primary Care Provider [phone] Encounter Details Date Type Department Care Team (Late st Contact Info) Description 04/17/2005 Results Only [facility] conversion [address] [place] [address] Lolly Oliveira MD [address] [place], [place] [id number] Social History Tobacco Use Types Packs/Day Years [...] ? JING ALVARENGA ? Accession #: ? [id number] : ? 1950 (Age: 54) ??F ?Collect Date: ? 04/17/2005 Location: ? [facility] ? Receive Date: ? 04/21/2005 Provider: ?LOLLY OLIVEIRA MD Copy to: ? Specimen/Source: ?ThinPrep Pap Test, Cervix/Endocervix, processed on Mirabilis MedicaPrep Imaging System, with manual evaluation Last Menstrual [...] Oliveira MD PATHOLOGY ORDERABLES T[facility] BLANCO [address] [place] [address] documented in this encounter Visit Diagnoses Not on filedocumented in this encounter Care Teams Remedial Reading Teacher Relationship Specialty Start Date End Date Lolly Oliveira MD [address] [place] [address] PCP - General 11/13/08 documented as of this encounter
--- OUTSIDE RECORDS SUMMARY | 2023-11-19 11:10 | XMS_ITS | Referral Summary ---
Author Organization [facility] Address [address] [place] [address] Care Team Providers Care Tallier Name Role Phone Lolly Oliveira MD Primary Care Provider [phone] Social History Tobacco Use Types Packs/Day Years Used Date Smoking Tobacco: Never Assessed Sex and Gender Information Value Date Recorded Sex Assigned at Not on file Gender Identity Not on file Sexual Orientation Not on file Plan of Treatment Not on file Care Teams Tallier Relationship Specialty Start Date End Date Lolly Oliveira MD [address] [place] [address] PCP - General 11/13/08
--- OUTSIDE RECORDS SUMMARY | 2023-11-19 11:10 | XMS_ITS | Encounter Summary ---
Author Organization [facility] [place] [address] Care Team Providers Care Glue Mill Operator Name Role Phone Lolly Oliveira MD Primary Care Provider [phone] Encounter Details Date Type Department Care Team (Latest Contact Info) Description 10/18/2023 10:00 AM EDT - 10/18/2023 11:59 PM EDT Hospital Encounter [place] [id number] Discharge Disposition: Home Social History Tobacco Use [...] with spacer fluticasone propionate (Flonase) 50 mcg/actuation [place], Suspension 1 spray by Each Nare route daily as needed. documented as of this encounter Plan of Treatment Upcoming Encounters Date Type Department Care Team (Late st Contact Info) Description 01/16/2024 10:00 AM EST Hospital Encounter Non-[place] [address] Arrived documented as of this encounter Procedures [...] filedocumented in this encounter Care Teams Glue Mill Operator Relationship Specialty Start Date End Date Lolly Oliveira MD [address] [place] [address] PCP - General 07/17/13 documented as of this encounter
--- OUTSIDE RECORDS SUMMARY | 2023-11-19 11:10 | XMS_ITS | Encounter Summary ---
Author Organization [facility] Address [address] [place] [address] Care Team Providers Care Heel Cutter Name Role Phone Lolly Oliveira MD Primary Care Provider [phone] Encounter Details Date Type Department Care Team (Late st Contact Info) Description 03/21/2019 Lab Requisition [facility] - [address] [address] Unknown, Provider, Social History Tobacco Use Types [...] 211 - 911 pg/mL 03/22/2019 11:52 EST [facility] Blood VENOUS BLOOD / Unknown 03/16/2019 9:25 EST 03/21/2019 21:35 EST Provider Unknown CHEMISTRY & BLOOD GA S ORDERABLES [facility] [address] [place] [address] documented in this encounter Visit Diagnoses Not on filedocumented in this encounter Care Teams Heel Cutter Relationship Specialty Start Date End Date Lolly Oliveira MD [address] [place] [address] PCP - General 11/13/08 documented as of this encounter
--- OUTSIDE RECORDS SUMMARY | 2023-11-19 11:10 | XMS_ITS | Encounter Summary ---
Author Organization [facility] Address [facility] [place] [address] Care Team Providers Care Waste Chopper Name Role Phone Lolly Oliveira MD Primary Care Provider [phone] Reason for Referral * Diagnostic Test (Routine) - Closed Specialty Diagnoses / Procedures Referred By Contkoki t Referred To Contact Cardiology Diagnoses Nonischemic cardiomyopathy Biventricular ICD (implantable cardioverter-defibrillator) in place Procedures Echocardiogram Transthoracic Lalit Mcmhaon MD [facility] [place] [address] Referral ID Status Reason Start Date Expiration Date V isits Requested Visits Authorized [id number] Closed Specialty Service Requested 03/15/2023 09/11/2023 1 1 Encounter Details Date Type Department Care Team (Late st Contact Info) Description 03/15/2023 Orders Only Cardiology at [address] [address] Lalit Mcmahon MD [facility] [place] [address] Nonischemic cardiomyopathy; Biventricular ICD (implantable cardioverter-defibrill ator) [...] AM EST Hospital Encounter [place] [address] Arrived Scheduled Orders Name Type Priority Associated Diagnoses Order Schedule Echocardiogram Transthoracic Echocardiography Routine Nonischemic cardiomyopathy Biventricular ICD (implantable cardioverter-defibr illator) in place Expected: 05/05/2023, Expires: 11/04/2023 documented as of this encounter Visit Diagnoses Diagnosis Nonischemic cardiomyopathy Other primary cardiomyopathies Biventricular ICD (implantable cardioverter-defibrillator) in place documented in this encounter Care Teams Waste Chopper Relationship Specialty Start Date End Date Lolly Oliveira MD [address] [place] [address] PCP - General 07/17/13 documented as of this encounter
--- OUTSIDE RECORDS SUMMARY | 2023-11-19 11:10 | XMS_ITS | Encounter Summary ---
Author Organization [facility] [place] [address] Care Team Providers Care Pipe Production Worker Name Role Phone Lolly Oliveira MD Primary Care Provider [phone] Reason for Visit * Reason Comments Follow-up 8 weeks UVB treatmen t twice weekly Encounter Details Date Type Department Care Team (Late st Contact Info) Description 07/19/2023 11:00 AM EDT Office Visit Dermatology at [address] [phone] Clay Ramírez MD [address], ERIKA A DERMATOLOGY [place], [place] [id number] Psoriasis Social History Tobacco Use Types Packs/Day [...] [facility] Hospital Encounter [place] [address] Arrived documented as of this encounter Visit Diagnoses Diagnosis Psoriasis Other psoriasis documented in this encounter Care Teams Pipe Production Worker Relationship Specialty Start Date End Date Lolly Oliveira MD [address] [place] [address] PCP - General 07/17/13 documented as of this encounter
--- OUTSIDE RECORDS SUMMARY | 2023-11-19 11:10 | XMS_ITS | Encounter Summary ---
Author Organization [facility] Address [address] [place] [address] Care Team Providers Care Supervisor Stripping Name Role Phone Unavailable Primary Care Provider Unavailabl e Encounter Details Date Type Department Care Team (Late st Contact Info) Description 11/07/[address] [facility] [address] [place] [address] Kenneth Parker MD [address] [place] [address] Social History Tobacco Use Types Packs/Day Years [...] ? LYLE, JING ? Accession #: ? [id number] ? : ? 1950 (Age: 58) ??F [...] Parker MD PATHOLOGY ORDERABLES Performing Organization Address City/State/[facility] Co de Phone Number TOVA BLANCO [address] [place] [address] documented in this encounter Visit Diagnoses Not on filedocumented in this encounter
--- OUTSIDE RECORDS SUMMARY | 2023-11-19 11:10 | XMS_ITS | Encounter Summary ---
Author Organization [facility] [place] [address] Care Team Providers Care Piano Mechanic Apprentice Name Role Phone Lolly Oliveira MD Primary Care Provider [phone] Reason for Visit * Auth/Cert (Routine) Specialty Diagnoses / Procedures Referred By Contac t Referred To Contact Diagnoses Left bundle-branch block, unspecified Other cardiomyopathies Left bundle branch block [I44.7]Nonischemic cardiomyopathy [I42.8] Procedures PRG CATH PLMT LEFT HEART CATH & ARTS W/INJ & ANGIO IMG S&I ELECTROPHYSIOLOGY PROCEDURE Lalit Mcmahon MD [facility] [place] [address] [facility] Referral ID Status Reason Start Date Expiration Date Visits Re quested Visits Authorized [id number] 1 1 Encounter Details Date Type Department Care Team (Late st Contact Info) Description 07/23/2022 1:00 PM EDT - 07/23/2022 5:30 PM EDT Surgery [place] [address] Lalit Mcmahon MD [facility] [place] [address] ELECTROPHYSIOLOGY PROCEDURE Social History Tobacco Use Types Packs/Day Years Used Date Smoking Tobacco: Never Tobacco Cessation:Counseling Given: Not Answered Alcohol Use Standard Drinks/Week Comments Not Currently 0 (1 standard drink = 0.6 oz pur e alcohol) [facility] Inpatient Questions Answer Date Recorded [...] Luna Mott Patient Age: 71 y.o. Language: Bangladeshi Race: White Ethnicity: Not nor Admit date: 07/23/2022 Discharge date and time: 07/24/22 Attending Physician: Lalit Mcmahon MD Discharge Physician: Lalit Mcmahon MD Follow-up Recommendations for Providers: - s/p RECONNAISSANCE CREWMEMBER-D implant - post implant QRS 130 ms [...] Nevus ??? Solar lentigo Operations/Major Procedures: 07/23/22: [facility] RECONNAISSANCE CREWMEMBER-D implant History of Presentation: 71 y.o. female with a history of HFrEF, LBBB, QRS >150, NYHA II who is POD#1 of RECONNAISSANCE CREWMEMBER-D implant ([employer]). Hospital Course: Elective admission for RECONNAISSANCE CREWMEMBER-D implant Admitted post-implant for pain management, telemetry [...] (heart failure with reduced ejection fraction) [I50.20] RECONNAISSANCE CREWMEMBER-D implant Admission Condition: good Indication for Admission: [...] g Refills: 3 fluticasone propionate 50 mcg/actuation [place], Suspension Commonly known as: Flonase 1 spray [...] incision. Make sure to use a cloth finisher (such as a towel) in between the [...] F. The office scheduling phone number is [phone]. ARM MOVEMENT RESTRICTIONS POST-IMPLANT - Do not [...] please call the Cardiac ElectrophysiologyTriage Nurse at [phone], option 3. General Instructions None Discharge References/Attachments [...] incision. Make sure to use a cloth finisher (such as a towel) in between the [...] F. The office scheduling phone number is [phone]. ARM MOVEMENT RESTRICTIONS POST-IMPLANT - Do not [...] please call the Cardiac ElectrophysiologyTriage Nurse at [phone], option 3. documented in this encounter Medications [...] with spacer fluticasone propionate (Flonase) 50 mcg/actuation [place], Suspension 1 spray by Each Nare route [...] Cardiac Electrophysiology Post-Implant Device Interrogation Luna Mott [id number] 07/24/2022 History: Luna Mott is a 71 y.o. female with a history of HFrEF, LBBB, QRS >150, NYHA II who is POD#1 of RECONNAISSANCE CREWMEMBER-D implant ([employer]). Overall feels well this morning. Ready [...] WOB Neuro- A&Ox3 Device Interrogation: Data ?? Pretzel Cooker Model # Serial # Generator [employer] [id number] Atrial Lead [employer] [id number] RV Lead [employer] 0672 [id number] LV Lead [employer] [id number] ?? Diagnostics Pacing Mode: DDD 60-130 Underlying Rhythm: Marvell Atrial Episodes: None Ventricular Episodes: None FINAL PROGRAMMING: Pacing: Mode Lower rate (ppm) Upper rate (ppm) ?? DDD 60 130 VF: Rate (bpm) #Antitachycardia pacing First shock energy (J) ?? 200 Quick convert 41 VT: 170 Monitor only Monitor only ? Battery and Leads Impedances (ohms) Sensing (mV) Thresholds HV RA RV LV RA RV LV RA RV LV 73 [phone] (LVa) 7.7 13.1 >25 0.4V @ 0.4 ms 0.4V @ 0.4 ms 0.5 V @ 1.0 ms POD#1 CXR: All leads in nominal positioning Impression: 71 y.o. female who is s/p RECONNAISSANCE CREWMEMBER-D implant for LBBB, NYHA II, HFrEF. - [...] [facility]) Fadi Nunez MD 07/24/2022 Pager: [phone] I met with the patient today and [...] agreement. ? Dr. Lalit Mcmahon, electrophysiology attending ([id number]) * Zaria Wright RN - 07/23/2022 8:28 [...] HF, QRS > 150 ms presents for RECONNAISSANCE CREWMEMBER-D placement. ROS: Denies recent fevers or chills [...] 0.9) flush 5 mL 5 mL Intravenous [id number] ramos MD ??? sodium chloride 0.9 % [...] HF, QRS > 150 ms presents for RECONNAISSANCE CREWMEMBER-D placement. Backup would be LBBAP lead. Antibiotics: cefazolin Rationales for, intended benefits and potential risk of planned procedures reviewed. The patient indicated understanding and agreement with the plan. Informed consent signed. Procedure checklist completed. Fadi Nunez MD Cardiac Electrophysiology Fellow [facility] Pager [phone] 07/23/2022 I met with the patient today [...] agreement. ? Dr. Lalit Mcmahon, electrophysiology attending ([id number]) documented in this encounter Miscellaneous Notes * Brief Op Note - Lalit Mcmahon MD - 07/23/2022 4:04 PM EDT Brief Operative Note Patient Name: Luna Mott : [id number] MR#: [id number] Case Date: 07/23/2022 Surgeon: Surgeon(s) and Role: [...] AM EST Hospital Encounter [place] [address] Arrived Scheduled Orders Name Type Priority Associated Diagnoses Orde r Schedule EKG 12 Lead ECG Routine Cardiac resynchronization therapy defibrillator (RECONNAISSANCE CREWMEMBER-D) in place One Time for 1 Occurrences [...] (Bezet) 522 ms MUSE SYSTEM Calculated R [place] 78 degrees MUSE SYSTEM Calculated T [place] -71 degrees MUSE SYSTEM INTERPRETATION AV dual-paced [...] who have questions please contact the health personal care attendant that requested your imaging first. ? Electronically signed by: Kwame Vargas MD, [facility] ([phone]), at 07/24/2022 6:43 AM Narrative 07/24/2022 6:43 [...] patients who have questions please contactthe health personal care attendant that requested your imaging first. Electronically signed by: Kwame Vargas MD, [facility]([phone]), at 07/24/2022 6:43 AM Lalit Mcmahon MD IMG DX ORDERABLES * ELECTROPHYSIOLOGY PROCEDURE (07/23/2022 1:11 PM EDT) Anatomical Region Laterality Modality Other Narrative 07/23/2022 4:24 PM EDT Table formatting from the original result was not included. BIVENTRICULAR ICD IMPLANTATION Precision Lens Technician: Lalit Mcmahon MD Fellow: Fadi Nunez MD [...] lateral branch of the CS in the [place] view. This branch was cannulated with [...] the entire procedure. LEAD AND GENERATOR DATA: Pretzel Cooker Model # Serial # Generator [employer] [id number] Atrial Lead [employer] [id number] [id number] RV Lead [employer] 0672 [id number] LV Lead [employer] [id number] [id number] PACE/SENSE DATA: Sensed wave (mV) Threshold (V) [...] (cGycm2) 300 CONCLUSIONS: Successful implantation of a [employer] biventricular ICD for primary prevention and treatment of symptoms related to congestive heart failure. Follow up in EP clinic in 1-2 months. Procedures performed: new ICD system ( cpt 13205-C3); implant LV lead at time of ICD insertion (cpt 05323) I have read, edited and approve of this report: Lalit Mcmahon MD [facility] Cardiac Electrophysiology 07/23/2022 4:22 PM Procedure Note Lalit Mcmahon MD - 07/23/2022 BIVENTRICULAR ICD IMPLANTATION Precision Lens Technician: Lalit Mcmahon MD Fellow: Fadi Nunez MD [...] appropriate lateralbranch of the CS in the [place] view. This branch was cannulated with [...] in the entireprocedure. LEAD AND GENERATOR DATA: Pretzel Cooker Model # Serial # Generator [employer] [id number] Atrial Lead [employer] 7841 [id number] RV Lead [employer] 0672 [id number] LV Lead [employer] 4674 [id number] PACE/SENSE DATA: Sensed wave (mV) Threshold (V) [...] (cGycm2) 300 CONCLUSIONS: Successful implantation of a [employer] biventricular ICD forprimary prevention and treatment of symptoms related to congestive heartfailure. Follow up in EP clinic in 1-2 months. Procedures performed: new ICD system ( cpt 11919-J7); implant LV lead attime of ICD insertion (cpt 20569) I have read, edited and approve of this report: Lalit Mcmahon MD S Cardiac Electrophysiology 07/23/2022 4:22 PM Lalit Mcmahon MD EP PROCEDURE ORDERAB LES * POCT Glucose (07/23/2022 12:54 PM EDT) [facility] Signature Glucose, POC 83 65 - 199 mg/dL [facility] Comment: Supplemental ranges: <140 mg/dL before meals <180 mg/dL all other times of the day Blood 07/23/2022 12:5 4 PM EDT 07/23/2022 12:54 PM EDT Lalit Mcmahon MD POINT OF CARE TEST O RDERABLES Performing Organization Address City/[facility]/ZIP Co de Phone Number [facility] [place] [address] * EKG 12 Lead (07/23/2022 12:33 PM EDT) Ventricular rate 72 BPM MUSE SYSTEM Atrial Rate 72 BPM MUSE SYSTEM P-R Interval 158 ms MUSE SYSTEM QRS Duration 176 ms MUSE SYSTEM Q-T Interval 458 ms MUSE SYSTEM QTC Calculated (Bezet) 501 ms MUSE SYSTEM Calculated P [place] 34 degrees MUSE SYSTEM Calculated R [place] 12 degrees MUSE SYSTEM Calculated T [place] -173 degrees MUSE SYSTEM INTERPRETATION Normal sinus rhythm Left bundle branch block Abnormal ECG No previous ECGs available Confirmed by MD Salome, Lalit ([id number]) on 07/23/2022 1:19:03 PM MUSE SYSTEM 07/23/2022 12:3 3 PM EDT 07/23/2022 1:19 PM EDT Lalit Mcmahon MD ECG ORDERABLES Performing Organization Address [facility]/ZIP Co de Phone Number MUSE SYSTEM * Differential, Automated (07/23/2022 11:55 AM EDT) Neutrophil % 62.6 % [facility] Neutrophil Absolute 4.14 1.70 - 6.10 x10(3)/[facility] Lymph % 27.0 % [facility] Lymphocytes Abs 1.8 0.9 - 3.2 x10(3)/[facility] Monocyte % 7.3 % [facility] Monocyte Abs 0.5 0.3 - 0.9 x10(3)/[facility] Eos % 2.3 % [facility] Eosinophils Abs 0.2 0.0 - 0.4 x10(3)/[facility] Basophil % 0.6 % [facility] Baso Absolute 0.0 0.0 - 0.1 x10(3)/[facility] Immature Gran % 0.20 % [facility] Comment: Immature granulocytes(IG's)percentage and absolute count will include metamyelocytes, myelocytes, and promyelocytes. Blood smears from CBCs yielding IG's will be scanned manually for concordance. If this scan disagrees with the automated IG or if promyelocytes are noted, a manual differential will be performed. Immature Gran Absolute 0.01 0.00 - 0.04 x10(3)/[facility] Blood 07/23/2022 11:5 5 AM EDT 07/23/2022 12:07 PM EDT Narrative Resulting Agency Comment Spec In Lab Lalit Mcmahon MD HEMATOLOGY ORDERABLE S [facility] [place] [address] * Hemogram (07/23/2022 11:55 AM EDT) White Blood Cell 6.6 4.0 - 9.5 x10(3)/[facility] Red Blood Cell 4.50 4.00 - 5.21 x10(6)/[facility] Hemoglobin 13.7 11.7 - 15.5 g/dL [facility] Hematocrit 42.5 35.7 - 45.8 % [facility] Mean Cell Volume 94.4 82.6 - 94.4 fL [facility] Mean Cell Hemoglobin 30.4 27.1 - 32.0 pg [facility] Mean Cell Hemoglobin Concentration 32.2 31.7 - 35.0 g/dL [facility] Platelet 193 145 - 357 x10(3)/[facility] RDW Standard Deviation 45.5 37.0 - 46.0 fL [facility] RDW coefficient of variation 13.2 11.5 - 14.1 % [facility] Mean Platelet Volume 9.5 7.6 - 12.9 fL [facility] NRBC% auto 0.0 % [facility] NRBC Absolute 0.000 0.000 - 0.000 x10(3)/[facility] Blood 07/23/2022 11:5 5 AM EDT 07/23/2022 12:07 PM EDT Narrative Resulting Agency Comment Spec In Lab Lalit Mcmahon MD HEMATOLOGY ORDERABLE S [facility] [place] [address] * (ABNORMAL) BMP w/fasting Glucose (07/23/2022 11:55 AM EDT) Glucose Fasting 110(H) 65 - 99 mg/dL [facility] Comment: ?Fasting* Glucose Interpretive Criteria [...] of Diabetes Mellitus, Position Statement from the [place] [employer]. ??Diabetes Care, Volume 33, Supplement 1, Mar 2009 Blood Urea Nitrogen 23(H) 8 - 18 mg/dL [facility] Creatinine 1.07 0.70 - 1.20 mg/dL [facility] Sodium 141 135 - 145 mmol/L [facility] Potassium 4.8 3.5 - 5.0 mmol/L [facility] Comment: Please note: ??Patients with WBC >100,000 may have falsely elevated Potassium levels. ??For accurate Potassium quantification in these patients send serum separator tube (gold top) for subsequent determinations. ??Contact the Clinical Chemistry Laboratory if there are any questions. Chloride 106 98 - 107 mmol/L [facility] Carbon Dioxide 26 22 - 31 mmol/L [facility] Anion Gap 9 5 - 15 mmol/L [facility] Calcium 9.7 8.5 - 10.5 mg/dL [facility] Est Glomerular Filtration Rate 55(L) >=60 mL/min/1. 73 m?? [facility] Comment: This patient's estimated GFR [...] CHEMISTRY ORDERABLES Performing Organization Address [facility] Co de Phone Number [facility] [place] [address] * Prothrombin Time (07/23/2022 11:55 AM EDT) Prothrombin Time 11.7 9.4 - 12.5 sec [facility] International Normalization Ratio 1.0 [facility] Comment: An INR <2.0 indicates [...] MD HEMATOLOGY ORDERABLE S Performing Organization Address City/[facility] Co de Phone Number [facility] [place] [address] documented in this encounter Visit Diagnoses Diagnosis HFrEF (heart failure with reduced ejection fraction)- Primary Left bundle branch block Other left bundle branch block Nonischemic cardiomyopathy Other primary cardiomyopathies Cardiac resynchronization therapy defibrillator (RECONNAISSANCE CREWMEMBER-D) in place Left bundle branch block Other [...] Routine documented in this encounter Care Teams Piano Mechanic Apprentice Relationship Specialty Start Date End Date Lolly Oliveira MD [address] [place] [address] PCP - General 07/17/13 documented as of this encounter
--- OUTSIDE RECORDS SUMMARY | 2023-11-19 11:10 | XMS_ITS | Encounter Summary ---
Author Organization [facility] Address [address] [place] [address] Care Team Providers Care Mechanical Maintenance Supervisor Name Role Phone Lolly Oliveira MD Primary Care Provider [phone] Encounter Details Date Type Department Care Team (Late st Contact Info) Description 06/16/2012 Results Only [facility] Laboratory Services - [facility] ([facility]) [address] [place], [place] [phone] Lolly Oliveira MD [address] [place], [place] [phone] Social History Tobacco Use Types Packs/Day Years [...] ? JING ALVARENGA ? Accession #: ? [id number] : ? 1950 (Age: 61) ??F ?Collect Date: ? 06/16/2012 Location: ? [facility] ? Receive Date: ? 06/17/2012 Provider: ?OLLLY OLIVEIRA MD Copy to: ? Specimen/Source: ?Pap [...] MD PATHOLOGY ORDERABLES [facility] [address] [place] [address] documented in this encounter Visit Diagnoses Not on filedocumented in this encounter Care Teams Mechanical Maintenance Supervisor Relationship Specialty Start Date End Date Lolyl Oliveira MD [address] [place] [address] PCP - General 11/13/08 documented as of this encounter
--- OUTSIDE RECORDS SUMMARY | 2023-11-19 11:10 | XMS_ITS | Encounter Summary ---
Author Organization [facility] [place] [address] Care Team Providers Care Jig Boring Machine Set Up Operator Name Role Phone Lolly Oliveira MD Primary Care Provider [phone] Encounter Details Date Type Department Care Team (Latest Contact Info) Description 04/21/2023 10:00 AM EST - 04/21/2023 11:59 PM EST Hospital Encounter [place] [phone] Discharge Disposition: Home Social History Tobacco Use [...] with spacer fluticasone propionate (Flonase) 50 mcg/actuation [place], Suspension 1 spray by Each Nare route [...] AM EST Hospital Encounter [place] [address] Arrived documented as of this [...] filedocumented in this encounter Care Teams Jig Boring Machine Set Up Operator Relationship Specialty Start Date End Date Lolly Oliveira MD [address] [place] [address] PCP - General 07/17/13 documented as of this encounter
--- OUTSIDE RECORDS SUMMARY | 2023-11-19 11:10 | XMS_ITS | Encounter Summary ---
Author Organization [facility] [place] [address] Care Team Providers Care Automatic Grinder Operator Name Role Phone Lolly Oliveira MD Primary Care Provider [phone] Encounter Details Date Type Department Care Team (Late st Contact Info) Description 03/15/2023 Telephone Cardiology at [address] [phone] Saranya Ma Social History Tobacco Use Types Packs/Day Years Used Date Smoking Tobacco: Never Alcohol Use Standard Drinks/Week Comments Not Currently 0 (1 standard drink = 0.6 oz pur e alcohol) [facility] Inpatient Questions Answer Date Recorded Does [...] her to have an echo done at [facility] prior to her appt withnym there on 05/12/23. Message sent to Dr. Mcmahon asking him to put order in if he would like her to have this done. Saranya Ma Sr. Clinical Procedure Field Reviewer/Primary Health Care Nurse documented in this encounter Plan of Treatment Upcoming Encounters Date Type Department Care Team (Late st Contact Info) Description 01/16/2024 10:00 AM EST Hospital Encounter [place] [address] Arrived documented as of this encounter Visit Diagnoses Not on filedocumented in this encounter Care Teams Automatic Grinder Operator Relationship Specialty Start Date End Date Lolly Oliveira MD [address] [place] [address] PCP - General 07/17/13 documented as of this encounter
--- OUTSIDE RECORDS SUMMARY | 2023-11-19 11:10 | XMS_ITS | Encounter Summary ---
Author Organization [facility] [place] [address] Care Team Providers Care Campground Caretaker Name Role Phone Lolly Oliveira MD Primary Care Provider [phone] Reason for Visit * Reason Onset Date Comments Other 07/24/2022 Implanted Cardia c Device Teaching/Education Encounter Details Date Type Department Care Team (Late st Contact Info) Description 07/24/2022 Notes Only Cardiology at [address] [phone] Letha Arroyo Other (Implanted Cardiac Device Teaching/Education) [...] to call the Cardiac Device Clinic at [phone] with any questions. Plan: Post op check: [...] [facility] Hospital Encounter Non-[place] [address] Arrived documented as of this encounter Visit Diagnoses Not on filedocumented in this encounter Care Teams Campground Caretaker Relationship Specialty Start Date End Date Lolly Oliveira MD [address] [place] [address] PCP - General 07/17/13 documented as of this encounter
--- OUTSIDE RECORDS SUMMARY | 2023-11-19 11:10 | XMS_ITS | Encounter Summary ---
Author Organization [facility] Address [address] [place] [address] Care Team Providers Care Director Private Music Therapy Agency Name Role Phone Lolly Oliveira MD Primary Care Provider [phone] Encounter Details Date Type Department Care Team (Late st Contact Info) Description 05/29/2002 Results Only [facility] [address] [place] [address] Silvia Diehl, [address] [place] [address] Social History Tobacco Use Types Packs/Day Years [...] ? JING MOTT ? Accession #: ? [id number] : ? 1950 (Age: 51) ??F ?Collect Date: ? 05/29/2002 Location: ? [facility] ? Receive Date: ? 05/31/2002 Provider: ?SILVIA DIEHL PATIENT CARE TECHNICIAN Copy to: ? Specimen/Source: ?ThinPrep Pap Test, [...] Report [facility] 05/29/2002 05/31/2002 Silvia Diehl PATIENT CARE TECHNICIAN PATHOLOGY ORDERABLES [facility] [address] [place] [address] documented in this encounter Visit Diagnoses Not on filedocumented in this encounter Care Teams Director Private Music Therapy Agency Relationship Specialty Start Date End Date Lolly Oliveira MD [address] [place] [address] PCP - General 11/13/08 documented as of this encounter
--- OUTSIDE RECORDS SUMMARY | 2023-11-19 11:10 | XMS_ITS | Encounter Summary ---
Author Organization [facility] Address [address] [place] [address] Care Team Providers Care Examination Supervisor Name Role Phone Lolly Oliveira MD Primary Care Provider [phone] Encounter Details Date Type Department Care Team (Late st Contact Info) Description 11/13/2020 Lab Requisition [facility] Pathology & Laboratory Medicine - [address] [phone] Outr Resulting Lab, Provider Social History Tobacco [...] Outr Resulting Lab MICROBIOLOGY - GENERAL ORDERABLES [facility] [address] [place] [address] * COVID-19 TESTING (11/13/2020 7:30 EDT) COVID-19 rt-PCR Result Negative Negative 11/14/2020 11:46 EDT [facility] Comment: This test has not [...] performed using the med SARS-CoV-2 assay ([employer] on the Med 6800 System Performing Lab Med 6800 [facility] Lab 11/14/2020 11:46 EDT [facility] Swab 11/13/2020 7:30 EDT 11/13/2020 20:57 EDT Provider Outr Resulting Lab MICROBIOLOGY - GENERAL ORDERABLES [facility] [address] [place] [address] documented in this encounter Visit Diagnoses Not on filedocumented in this encounter Care Teams Examination Supervisor Relationship Specialty Start Date End Date Lolly Oliveira MD [address] [place] [address] PCP - General 11/13/08 documented as of this encounter
--- OUTSIDE RECORDS SUMMARY | 2023-11-19 11:10 | XMS_ITS | Encounter Summary ---
Author Organization [facility] [place] [address] Care Team Providers Care Sealant Mixer Name Role Phone Lolly Oliveira MD Primary Care Provider [phone] Encounter Details Date Type Department Care Team (Late st Contact Info) Description 05/18/2023 Telephone Dermatology at [address] [address] Nora Meredith LPN Social History [...] [facility] Hospital Encounter [place] [phone] Arrived documented as of this encounter Visit Diagnoses Not on filedocumented in this encounter Care Teams Sealant Mixer Relationship Specialty Start Date End Date Lolly Oliveira MD [address] [place] [address] PCP - General 07/17/13 documented as of this encounter
--- OUTSIDE RECORDS SUMMARY | 2023-11-19 11:10 | XMS_ITS | Clinical Summary ---
Author Organization [facility] Address [address] [place] [address] Care Team Providers Care High School Social Studies Tutor Name Role Phone Lolly Oliveira MD Primary Care Provider [phone] Social History Tobacco Use Types Packs/Day Years [...] Risk Screening 2013 COVID-19 Vaccine ( season) 2023 Care Teams High School Social Studies Tutor Relationship Specialty Start Date End Date Lolly Oliveira MD [address] [place], [place] [phone] PCP - General 11/13/08
--- OUTSIDE RECORDS SUMMARY | 2023-11-19 11:10 | XMS_ITS | Encounter Summary ---
Author Organization [facility] Address [address] [place] [address] Care Team Providers Care Data Security Consultant Name Role Phone Lolly Oliveira MD Primary Care Provider [phone] Encounter Details Date Type Department Care Team (Late st Contact Info) Description 02/11/2021 Lab Requisition [facility] Pathology & Laboratory Medicine - [address] [address] Outr Resulting Lab, Provider Social History Tobacco [...] Outr Resulting Lab MICROBIOLOGY - GENERAL ORDERABLES [facility] [address] [place] [address] * COVID-19 TESTING (02/11/2021 8:00 EST) COVID-19 rt-PCR Result Negative Negative 02/12/2021 14:17 EST [facility] Comment: This test [...] was performed using the med SARS-CoV-2 assay ([employer] on the Med 6800 System Performing Lab Med 6800 [facility] Lab 02/12/2021 14:17 EST [facility] Swab 02/11/2021 8:00 EST 02/11/2021 22:22 EST Provider Outr Resulting Lab MICROBIOLOGY - GENERAL ORDERABLES [facility] [address] [place] [address] documented in this encounter Visit Diagnoses Not on filedocumented in this encounter Care Teams Data Security Consultant Relationship Specialty Start Date End Date Lolly Oliveira MD [address] [place] [address] PCP - General 11/13/08 documented as of this encounter
--- OUTSIDE RECORDS SUMMARY | 2023-11-19 11:10 | XMS_ITS | Encounter Summary ---
Author Organization [facility] Address [address] [place] [address] Care Team Providers Care Municipal Firefighter Name Role Phone Lolly Oliveira MD Primary Care Provider [phone] Encounter Details Date Type Department Care Team (Late st Contact Info) Description 04/12/2007 Results Only [facility] conversion [address] [place] [address] Lolly Oliveira MD [address] [place], [place] [id number] Social History Tobacco Use Types Packs/Day Years [...] ? JING ALVARENGA ? Accession #: ? [id number] : ? 1950 (Age: 56) ??F ?Collect Date: ? 04/12/2007 Location: ? [facility] ? Receive Date: ? 04/13/2007 Provider: ?LOLLY OLIVEIRA MD Copy to: ? Specimen/Source: ?ThinPrep Pap Test, Cervix/Endocervix, processed on [employer] ThinPrep Imaging System, with manual evaluation Last [...] 04/13/2007 Lolly Oliveira MD PATHOLOGY ORDERABLES [facility] [address] [place] [address] documented in this encounter Visit Diagnoses Not on filedocumented in this encounter Care Teams Municipal Firefighter Relationship Specialty Start Date End Date Lolly Oliveira MD [address] [place] [address] PCP - General 11/13/08 documented as of this encounter
--- OUTSIDE RECORDS SUMMARY | 2023-11-19 11:10 | XMS_ITS | Encounter Summary ---
Author Organization [facility] Address [address] [place] [address] Care Team Providers Care Smart Energy Specialist Name Role Phone Lolly Oliveira MD Primary Care Provider [phone] Encounter Details Date Type Department Care Team (Late st Contact Info) Description 03/06/2003 Results Only [facility] conversion [address] [place] [address] Lolly Oliveira MD [address] [place], [place] [phone] Social History Tobacco Use Types Packs/Day Years [...] Oliveira MD PATHOLOGY ORDERABLES Performing Organization Address City/State/[facility] Co de Phone Number [facility] [address] [place] [address] documented in this encounter Visit Diagnoses Not on filedocumented in this encounter Care Teams Smart Energy Specialist Relationship Specialty Start Date End Date Lolly Oliveira MD [address] [place] [address] PCP - General 11/13/08 documented as of this encounter
--- OUTSIDE RECORDS SUMMARY | 2023-11-19 11:10 | XMS_ITS | Encounter Summary ---
Author Organization [facility] [place] [address] Care Team Providers Care Facility Environmental Technician Name Role Phone Lolly Oliveira MD Primary Care Provider [phone] Reason for Visit * Reason Onset Date Comments Post Procedure Call 07/30/2022 Encounter Details Date Type Department Care Team (Late st Contact Info) Description 07/30/2022 Notes Only Cardiology at [address] [phone] Rosenda Sutton, RN Post Procedure Call Social [...] 07/30/2022 9:59 AM EDTSummary: Post Procedure Call: REHAB AIDE implant EP RN Post-Procedure Note: Date of Follow Up Call: 07/30/2022 Spoke With: Patient Procedure Type (choose all that apply): ICD Performing MIRLANDE Mcmahon Date of Procedure: 07/23/2022 Date of Discharge: 07/24/2022 Follow Up EP Visit Scheduled?: No No Follow Up Visit Reason: Follow up outside Outside Location: [facility] Date of Non EP [...] Note: Follow-up Recommendations for Providers: - s/p REHAB AIDE-D implant - post implant QRS 130 ms - reviewed post-implant instructions - no medication changes - Follow up in device clinic for wound/device check in ~10 days??([facility]) Wound Care: -Wound will heal in [...] [facility] Hospital Encounter [place] [address] Arrived documented as of this encounter Visit Diagnoses Not on filedocumented in this encounter Care Teams Facility Environmental Technician Relationship Specialty Start Date End Date Lolly Oliveira MD [address] [place] [address] PCP - General 07/17/13 documented as of this encounter
--- OUTSIDE RECORDS SUMMARY | 2023-11-19 11:10 | XMS_ITS | Encounter Summary ---
Author Organization [facility] Address [address] [place] [address] Care Team Providers Care Registered Land Surveyor Name Role Phone Lolly Oliveira MD Primary Care Provider [phone] Encounter Details Date Type Department Care Team (Late st Contact Info) Description 04/25/2009 Orders Only [facility] Laboratory Services - [facility] ([facility] [address] [place], [place] [phone] Lolly Oliveira MD [address] [place], [place] [phone] Social History Tobacco Use Types Packs/Day Years [...] ? JING ALVARENGA ? Accession #: ? [id number] ? : ? 1950 (Age: 58) ??F [...] reviewed and electronically signed by: ? Helena Coulters, [place](ASCP) ? Report Date: ??04/29/2009 10:38 ? End of Report ? [facility] 04/25/2009 04/26/2009 Lolly Oliveira MD PATHOLOGY ORDERABLES [facility] [address] [place] [address] documented in this encounter Visit Diagnoses Not on filedocumented in this encounter Care Teams Registered Land Surveyor Relationship Specialty Start Date End Date Lolly Oliveira MD [address] [place] [address] PCP - General 11/13/08 documented as of this encounter
--- OUTSIDE RECORDS SUMMARY | 2023-11-19 11:10 | XMS_ITS | Encounter Summary ---
Author Organization [facility] [place] [address] Care Team Providers Care Heavy Forger Name Role Phone Lolly Oliveira MD Primary Care Provider [phone] Encounter Details Date Type Department Care Team (Latest Contact Info) Description 07/20/2023 10:00 AM EDT - 07/20/2023 11:59 PM EDT Hospital Encounter [place] [address] Discharge Disposition: Home Social History Tobacco Use [...] with spacer fluticasone propionate (Flonase) 50 mcg/actuation [place], Suspension 1 spray by Each Nare route daily as needed. documented as of this encounter Plan of Treatment Upcoming Encounters Date Type Department Care Team (Late st Contact Info) Description 01/16/2024 10:00 AM [facility] Hospital Encounter Non-[place] [address] Arrived documented as of this encounter Procedures [...] on filedocumented in this encounter Care Teams Heavy Forger Relationship Specialty Start Date End Date Lolly Oliveira MD [address] [place] [address] PCP - General 07/17/13 documented as of this encounter
--- OUTSIDE RECORDS SUMMARY | 2023-11-19 11:10 | XMS_ITS | Encounter Summary ---
Author Organization [facility] Address [address] [place] [address] Care Team Providers Care Manager Imaging Name Role Phone Lolly Oliveira MD Primary Care Provider [phone] Encounter Details Date Type Department Care Team (Late st Contact Info) Description 05/02/2004 Results Only [facility] [address] [place] [address] Lolly Oliveira MD [address] [place], [place] [phone] Social History Tobacco Use Types Packs/Day Years [...] 50, 54, 56, 57, and 66. [facility] Report Status Final [id number] [facility] 05/02/2004 9:32 EST 05/10/2004 9:32 EST Lolly Oliveira MD MICROBIOLOGY - GENER AL ORDERABLES [facility] [address] [place] [address] * CYTOPATHOLOGY (05/02/2004 0:00 EST) Pathology Report: CYTOPATHOLOGY REPORT Reports generated via electronic interface contain original data; however they are lacking the format of the original report. Caution should be taken when reading/interpreti ng unformatted reports. Name: ? JING ALVARENGA ? Accession #: ? [id number] : ? 1950 (Age: 53) ??F ?Collect [...] Oliveira MD PATHOLOGY ORDERABLES Performing Organization Address City/State/[facility] Co de Phone Number [facility] [address] [place] [address] documented in this encounter Visit Diagnoses Not on filedocumented in this encounter Care Teams Manager Imaging Relationship Specialty Start Date End Date Lolly Oliveira MD [address] [place] [address] PCP - General 11/13/08 documented as of this encounter
--- OUTSIDE RECORDS SUMMARY | 2023-11-19 11:10 | XMS_ITS | Encounter Summary ---
Author Organization [facility] Address [facility] [place] [address] Care Team Providers Care Sas Programmer Name Role Phone Lolly Oliveira MD Primary Care Provider [phone] Encounter Details Date Type Department Care Team (Late st Contact Info) Description 11/11/2022 Orders Only Cardiology at [address] [phone] Lalit Mcmahon MD [facility] [place] [address] Nonischemic cardiomyopathy Social History Tobacco Use Types Packs/Day Years Used Date Smoking Tobacco: Never Alcohol Use Standard Drinks/Week Comments Not Currently 0 (1 standard drink = 0.6 oz pur e alcohol) [facility] Inpatient Questions Answer Date Recorded Does Anyone [...] Contact Info) Description 01/16/2024 10:00 AM [facility] Hospital Encounter [place] [address] Arrived documented as of this encounter Visit Diagnoses Diagnosis Nonischemic cardiomyopathy Other primary cardiomyopathies documented in this encounter Care Teams Sas Programmer Relationship Specialty Start Date End Date Berrian, Lolly M, MD [address] [place] [address] PCP - General 07/17/13 documented as of this encounter
--- OUTSIDE RECORDS SUMMARY | 2023-11-19 11:10 | XMS_ITS | Encounter Summary ---
Author Organization [facility] Address [facility] [place] [address] Care Team Providers Care Drafter Automotive Design Layout Name Role Phone Lolly Oliveira MD Primary Care Provider [phone] Encounter Details Date Type Department Care Team (Late st Contact Info) Description 05/03/2023 Telephone Cardiology at [address] [phone] Lalit Mcmahon MD [facility] [place] [address] Social History Tobacco Use Types Packs/Day Years Used Date Smoking Tobacco: Never Alcohol Use Standard Drinks/Week Comments Not Currently 0 (1 standard drink = 0.6 oz pur e alcohol) [facility] Inpatient Questions Answer Date Recorded Does Anyone [...] AM EST Hospital Encounter [place] [address] Arrived documented as of this encounter Visit Diagnoses Not on filedocumented in this encounter Care Teams Drafter Automotive Design Layout Relationship Specialty Start Date End Date Lolly Oliveira MD [address] [place] [address] PCP - General 07/17/13 documented as of this encounter
--- OUTSIDE RECORDS SUMMARY | 2023-11-19 11:10 | XMS_ITS | Encounter Summary ---
Author Organization [facility] Address [address] [place] [address] Care Team Providers Care Power Press Tender Name Role Phone Lolly Oliveira MD Primary Care Provider [phone] Encounter Details Date Type Department Care Team (Late st Contact Info) Description 04/01/2005 Results Only [facility] [address] [place] [address] Blair Dukes MD [address] [place] [id number] Social History Tobacco Use Types Packs/Day Years [...] ? JING ALVARENGA ? Accession #: ? [id number] ? : ? 1950 (Age: 54) ??F ? Collect Date: ? 04/01/2005 ? Location: ? [facility] ? Receive Date: ? 04/02/2005 ? Provider: LBAIR DUKES MD Copy to: LOLLY OLIVEIRA MD [...] (A). Received in [place]e' s fixative labelled [place] and #2 ??transverse colon bx is a single 0.2 x 0.2 x 0.2 cm tissue, submitted intact as (B). ??(Dr. Lechuga)/[facility] End of Report [facility] 04/01/2005 04/02/2005 15: 24 EST Blair Dukes MD PATHOLOGY ORDERABLES [facility] [address] [place] [address] documented in this encounter Visit Diagnoses Not on filedocumented in this encounter Care Teams Power Press Tender Relationship Specialty Start Date End Date Lolly Oliveira MD [address] [place] [address] PCP - General 11/13/08 documented as of this encounter
--- OUTSIDE RECORDS SUMMARY | 2023-11-19 11:10 | XMS_ITS | Clinical Summary ---
Author Organization [facility] [place] [address] Care Team Providers Care Manager Business Systems Name Role Phone Lolly Oliveira MD Primary Care Provider [phone] Allergies Active Allergy Reactions Criticality Noted Date [...] spacer Active fluticasone propionate (Flonase) 50 mcg/actuation [place], Suspension 1 spray by Each Nare route [...] PM EDT Hospital Encounter [place] [address] Discharge Disposition: Home from Last [...] AM EST Hospital Encounter [place] [address] Arrived Health Maintenance Due Date Last Done [...] series) 11/07/2023 Medical Devices Implanted Type Area Edge Banding Off Bearer Device Identifier Shelf Expiration Date Model / Serial / Lot Bsx: [id number]: [id number]/18/2 023 Implanted: by Lalit Mcmahon MD (Quantity not on file) Defibrillator Chest Wall [employer] [id number] / [id number] / Bsx: [id number]: [id number]/18/2 023 Implanted: by Lalit Mcmahon MD (Quantity not on file) Lead Heart [employer] [id number] / [id number] / Bsx: [id number]: [id number] Implanted: by Lalit Mcmahon MD (Quantity not on file) Lead Heart [employer] [id number] / [id number] / Bsx: [id number]: [id number]/18/2 023 Implanted: by Lalit Mcmahon MD (Quantity not on file) Lead Heart [employer] [id number] / [id number] / Procedures Procedure Name Priority Date/Time Associated [...] Status decision made by: Patient Care Teams Manager Business Systems Relationship Specialty Start Date End Date Lolly Oliveira MD [address] [place] [address] PCP - General 07/17/13
--- OUTSIDE RECORDS SUMMARY | 2023-11-19 11:10 | XMS_ITS | Encounter Summary ---
Author Organization [facility] [place] [address] Care Team Providers Care Emergency Department Physician Name Role Phone Lolly Oliveira MD Primary Care Provider [phone] Encounter Details Date Type Department Care Team [...] AM EST Hospital Encounter Non-[place]vasive [place] [address] Arrived documented as of this encounter Visit Diagnoses Not on filedocumented in this encounter Care Teams Emergency Department Physician Relationship Specialty Start Date End Date Lolly Oliveira MD [address] [place] [address] PCP - General 07/17/13 documented as of this encounter
--- OUTSIDE RECORDS SUMMARY | 2023-11-19 11:10 | XMS_ITS | Encounter Summary ---
Author Organization [facility] Address [address] [place] [address] Care Team Providers Care Forestry Foreman Name Role Phone Lolly Oliveira MD Primary Care Provider [phone] Encounter Details Date Type Department Care Team (Late st Contact Info) Description 02/20/2020 Lab Requisition [facility] Pathology & Laboratory Medicine - [address] [id number] Outr Resulting Lab, Provider Social History Tobacco [...] Outr Resulting Lab MICROBIOLOGY - GENERAL ORDERABLES [facility] [place], [place] * COVID-19 TESTING (02/19/2020 16:30 EST) COVID-19 rt-PCR Result NEGATIVE Negative 02/22/2020 23:41 EST [facility] Comment: 2019-novel Coronavirus (2019-nCoV) not detected [...] Administration's Emergency Use Authorization. Performing Lab [facility] 02/22/2020 23:41 EST [facility] Swab 02/19/2020 16:3 0 EST 02/20/2020 16:09 EST Provider Outr Resulting Lab MICROBIOLOGY - GENERAL ORDERABLES [facility] [address] [place] [address] [facility] [place] [place] documented in this encounter Visit Diagnoses Not on filedocumented in this encounter Care Teams Forestry Foreman Relationship Specialty Start Date End Date Lolly Oliveira MD [address] [place] [address] PCP - General 11/13/08 documented as of this encounter
--- OUTSIDE RECORDS SUMMARY | 2023-11-19 11:10 | XMS_ITS | Encounter Summary ---
Author Organization [facility] Address [address] [place] [address] Care Team Providers Care Pick Up Worker Name Role Phone Lolly Oliveira MD Primary Care Provider [phone] Encounter Details Date Type Department Care Team (Late st Contact Info) Description 05/27/2021 Lab Requisition [facility] Pathology & Laboratory Medicine - [address] [address] Iman Moran, DO [address] [facility] [address] [place], [place] [id number] Encounter for other general examination Social History [...] Y: - Tubular adenoma. 05/30/2021 13:31 [facility] Attestation By the signature below, the attending physician certifies that they have 1) personally conducted a gross and/or microscopic examination of the described specimen(s), and/or personally interpreted the results of laboratory testing of the described specimen(s), and 2) personally rendered or confirmed the above diagnosis. 05/30/2021 13:31 [facility] at 1331 Clinical History Severe diverticula and polypectomy x1 05/30/2021 13:31 [facility] Gross Description A. Received in formalin labelled with proper patient identification (initials J, K) and colon polyp x1 at 90 cm is a light pineda polypoid tissue measuring 0.2 x 0.2 x 0.2 cm. Submitted intact in A1. MICKEY CARLOS(ASCP) 05/27/2021 19:11 05/30/2021 13:31 [facility] Performing Lab [facility] 05/30/2021 13:31 [facility] Scanned Images 05/30/2021 13:31 [facility] Tissue ENTIRE COLON / Unknown 05/27/2021 11:23 EDT 05/27/2021 16:33 EDT Iman Moran DO PATHOLOGY ORDERABLES [facility] [address] [place] [address] documented in this encounter Visit Diagnoses Diagnosis Encounter for other general examination documented in this encounter Care Teams Pick Up Worker Relationship Specialty Start Date End Date Lolly Oliveira MD [address] [place] [address] PCP - General 11/13/08 documented as of this encounter
--- OUTSIDE RECORDS SUMMARY | 2023-11-19 11:10 | XMS_ITS | Encounter Summary ---
Author Organization [facility] [place] [address] Care Team Providers Care Hotel Lobby Concierge Name Role Phone Lolly Oliveira MD Primary Care Provider [phone] Encounter Details Date Type Department Care Team (Latest Contact Info) Description 10/23/2022 10:00 AM EDT - 10/23/2022 11:59 PM EDT Hospital Encounter [place] [address] Discharge Disposition: Home Social History Tobacco Use [...] with spacer fluticasone propionate (Flonase) 50 mcg/actuation [place], Suspension 1 spray by Each Nare route [...] CARE CENTER Hospital Encounter Non-[place] [address] Arrived documented as of this [...] on filedocumented in this encounter Care Teams Hotel Lobby Concierge Relationship Specialty Start Date End Date Lolly Oliveira MD [address] [place] [address] PCP - General 07/17/13 documented as of this encounter
[2023-11-19 11:11] VITALS: BP 131/68; PULSE 66
--- OUTSIDE RECORDS SUMMARY | 2023-11-19 11:11 | XMS_ITS | Encounter Summary ---
Author Organization [facility] [place] [address] Care Team Providers Care Scrap Crane Operator Name Role Phone Lolly Oliveira MD Primary Care Provider [phone] Reason for Visit * Diagnostic Test (Routine) - Closed Specialty Diagnoses / Procedures Referred By Contac t Referred To Contact Radiology Diagnoses Left bundle branch block Nonischemic cardiomyopathy Procedures MRI Cardiac Morphology Function With Flow Velocity Quantification wwo Contrast MRI Cardiac Morphology Function wwo Contrast Lalit Mcmahon MD [facility] [place] [address] [facility] [place] [address] Referral ID Status Reason Start Date Expiration Date V isits Requested Visits Authorized [id number] Closed Specialty Service Requested 05/06/2022 11/07/2023 2 1 Encounter Details Date Type Department Care Team (Latest Contact Info) Description 07/14/2022 9:09 AM EDT - 07/14/2022 11:59 PM EDT Hospital [place] [address] Lalit Mcmahon MD [facility] [place] [address] Discharge Disposition: Home Social History Tobacco Use [...] with spacer fluticasone propionate (Flonase) 50 mcg/actuation [place], Suspension 1 spray by Each Nare route [...] AM EST Hospital Encounter Non-[place] [address] Arrived documented as of this [...] mLs documented in this encounter Care Teams Scrap Crane Operator Relationship Specialty Start Date End Date Lolly Oliveira MD [address] [place] [address] PCP - General 07/17/13 documented as of this encounter
--- OUTSIDE RECORDS SUMMARY | 2023-11-19 11:11 | XMS_ITS | Encounter Summary ---
Author Organization [facility] [place] [address] Care Team Providers Care Panel Instrument Repairer Name Role Phone Lolly Oliveira MD Primary Care Provider [phone] Reason for Visit * Reason Comments Skin Check Encounter Details Date Type Department Care Team (Late st Contact Info) Description 11/23/2014 10:00 AM EDT Office Visit Dermatology at [address] [address] Clay Ramírez MD [address] [facility] [place] [address] Dermatofibroma; Nevus; Solar lentigo Discharge Disposition: Home [...] MEDICAL CENTER Hospital Encounter Non-Invasive [place] [address] Arrived documented as of this encounter Visit Diagnoses Diagnosis Dermatofibroma Benign neoplasm of skin, site unspecified Nevus Benign neoplasm of skin, site unspecified Solar lentigo Other dyschromia documented in this encounter Care Teams Panel Instrument Repairer Relationship Specialty Start Date End Date Lolly Oliveira MD [address] [place] [address] PCP - General 07/17/13 documented as of this encounter
--- OUTSIDE RECORDS SUMMARY | 2023-11-19 11:11 | XMS_ITS | Encounter Summary ---
Author Organization [facility] Address [facility] [place] [address] Care Team Providers Care Coroner'S Juror Name Role Phone Lolly Oliveira MD Primary Care Provider [phone] Reason for Visit * Auth/Cert (Routine) Specialty Diagnoses / Procedures Referred By Contac t Referred To Contact Diagnoses Left bundle-branch block, unspecified Other cardiomyopathies Left bundle branch block [I44.7]Nonischemic cardiomyopathy [I42.8] Procedures PRG CATH PLMT LEFT HEART CATH & ARTS W/INJ & ANGIO IMG S&I ELECTROPHYSIOLOGY PROCEDURE Lalit Mcmahon MD [facility] [place] [address] [facility] Referral ID Status Reason Start Date Expiration Date Visits Re quested Visits Authorized [id number] 1 1 Encounter Details Date Type Department Care Team (Late st Contact Info) Description 07/23/2022 1:08 PM EDT Anesthesia Event [place] [address] Monae Gonzalez MD [facility] [place] [address] Maria Elena Snyder CRNA [facility] [place] [address] Anesthesia Record Procedure Summary Procedure Name Responsible [...] 1307; median cubital vein (antecubital fossa), right; ytwt-ahj-rvolno catheter system; Anatomical Landmarks; 20 gauge; 07/24/22; [...] 1343; metacarpal vein (top of hand), left; mepw-ait-oocsbq catheter system; Anatomical Landmarks; US Not Used; [...] Procedure Summary Date: 07/23/22 Room / Location: [facility]LAB ROOM 3 / [facility] Anesthesia Start: 1308 Anesthesia Stop: 1633 Procedure: ELECTROPHYSIOLOGY PROCEDURE (Left) Diagnosis: Left bundle branch block Nonischemic cardiomyopathy (Left bundle branch block [I44.7]Nonischemic cardiomyopathy [I42.8]) Providers: Lalit Mcmahon MD Responsible Provider: Monae Gonzalez MD Anesthesia Type: general ASA Status: 4 All Anesthesia Providers: Anesthesiologist: Monae Gonzalez MD; Dominique Sen MD REFORMATORY ATTENDANT: Maria Elena Snyder CRNA Vitals Value Taken Time BP 131/46 07/23/22 1700 Temp 36.7 ??C (98.1 ??F) 07/23/22 1627 Pulse 67 07/23/22 1703 Resp 14 07/23/22 1703 SpO2 98 % 07/23/22 1703 Pain Level Vitals shown include unvalidated device data. Patient Location: [facility] Level of Consciousness: Conscious but Sleepy [...] and Nonischemic CM (EF 15-20%)who presents for CREDIT DEPARTMENT MANAGER-D. No prior anesthetic records. Pt states [...] daughter/son and patient who. Plan discussed with REFORMATORY ATTENDANT. Anesthesia Screening documented in this encounter Plan of Treatment Upcoming Encounters Date Type Department Care Team (Late st Contact Info) Description 01/16/2024 10:00 AM [facility] Hospital Encounter Non-Invasive [place] [address] Arrived documented as of this [...] mg documented in this encounter Care Teams Coroner'S Juror Relationship Specialty Start Date End Date Lolly Oliveira MD [address] [place] [address] PCP - General 07/17/13 documented as of this encounter
--- OUTSIDE RECORDS SUMMARY | 2023-11-19 11:11 | XMS_ITS | Encounter Summary ---
Author Organization [facility] [place] [address] Care Team Providers Care Financial Writer Name Role Phone Lolly Oliveira MD Primary Care Provider [phone] Encounter Details Date Type Department Care Team (Late Contact Info) Description 01/14/2022 Telephone Dermatology at [address] [address] Nora Meredith LPN Social History [...] AM EST Hospital Encounter [place] [address] Arrived documented as of this encounter Visit Diagnoses Not on filedocumented in this encounter Care Teams Financial Writer Relationship Specialty Start Date End Date Lolly Oliveira MD [address] [place] [address] PCP - General 07/17/13 documented as of this encounter
--- OUTSIDE RECORDS SUMMARY | 2023-11-19 11:11 | XMS_ITS | Encounter Summary ---
Author Organization [facility] [place] [address] Care Team Providers Care Executive Business Coach Name Role Phone Lolly Oliveira MD Primary Care Provider [phone] Reason for Visit * Reason Comments Follow-up Encounter Details Date Type Department Care Team (Late st Contact Info) Description 05/21/2022 8:00 AM EDT Office Visit Dermatology at [address] [phone] Clay Ramírez MD [address] [facility] [place] [address] Psoriasis, guttate Social History Tobacco Use Types [...] CARE FACILITY Hospital Encounter Non[place] [address] Arrived documented as of this encounter Visit Diagnoses Diagnosis Psoriasis, guttate Other psoriasis documented in this encounter Care Teams Executive Business Coach Relationship Specialty Start Date End Date Lolly Oliveira MD [address] [place] [address] PCP - General 07/17/13 documented as of this encounter
--- OUTSIDE RECORDS SUMMARY | 2023-11-19 11:11 | XMS_ITS | Encounter Summary ---
Author Organization [facility] [place] [address] Care Team Providers Care Paint Preparer Name Role Phone Unavailable Primary Care Provider Unavailabl e Encounter Details Date Type Department Care Team (Late st Contact Info) Description 07/14/2013 External Results XRay at [address] [place] [address] Provider, Scanning Social History Tobacco Use Types [...] AM EST Hospital Encounter Non-Invasive Cardiology Lab [facility] [place] [address] Arrived documented as of this encounter Procedures [...]
--- OUTSIDE RECORDS SUMMARY | 2023-11-19 11:11 | XMS_ITS | Encounter Summary ---
Author Organization [facility] [place] [address] Care Team Providers Care Associate Civil Engineer Name Role Phone Lolly Oliveira MD Primary Care Provider Reason for Referral * Consultation (Routine) - Closed Specialty Diagnoses / Procedures Referred By Contact Referred To Contact Electrophysiology / Cardiology Diagnoses Left bundle branch block Cardiomyopathy, unspecified type AT MINIMUM PT NEEDS CONSIDERATION FOR DEFIBRILLATOR, ALSO CANDIDATE FOR RESYNCHRONIZATION THERAPY HER QRS IS >0.16 Lolly Oliveira MD [address] [place] [address] [facility] Cardiology [address] [place] [address] Referral ID Status Reason Start Date Expiration Date V isits Requested Visits Authorized [id number] Closed Consult, Test & Treat PCP Updated and/or Approved 04/30/2022 04/30/2023 6 6 Encounter Details Date Type Department Care Team (Latest Contact Info) Description 04/30/2022 Transcribe Orders eDH Incoming Referrals [phone] Lolly Oliveira MD [address] [place], [place] [id number] Left bundle branch block; Cardiomyopathy, unspecified type [...] AM EST Hospital Encounter Non-Invasive [place] [address] Arrived Scheduled Referrals Name Type Priority Associated Diagnoses Orde r Schedule Referral to Cardiology Outpatient Referral Routine Left bundle branch block Cardiomyopathy, Unspecified Type Ordered: 04/30/2022 documented as of this encounter Visit Diagnoses Diagnosis Left bundle branch block Other left bundle branch block Cardiomyopathy, unspecified type documented in this encounter Care Teams Associate Civil Engineer Relationship Specialty Start Date End Date Lolly Oliveira MD [address] [place] [address] PCP - General 07/17/13 documented as of this encounter
--- OUTSIDE RECORDS SUMMARY | 2023-11-19 11:11 | XMS_ITS | Encounter Summary ---
Author Organization [facility] [place] [address] Care Team Providers Care Histotechnologist Name Role Phone Lolly Oliveira MD Primary Care Provider [phone] Encounter Details Date Type Department Care Team (Late st Contact Info) Description 07/26/2013 [place] [address] Eleno Christian MD [facility] [place] [address] Social History Tobacco Use Types Packs/Day Years [...] AM EST Hospital Encounter Non-[place] [address] Arrived documented as of this encounter Visit Diagnoses Not on filedocumented in this encounter Care Teams Histotechnologist Relationship Specialty Start Date End Date Lolly Oliveira MD [address] [place] [address] PCP - General 07/17/13 documented as of this encounter
--- OUTSIDE RECORDS SUMMARY | 2023-11-19 11:11 | XMS_ITS | Encounter Summary ---
Author Organization [facility] [place] [address] Care Team Providers Care Vest Front Presser Name Role Phone Lolly Oliveira MD Primary Care Provider [phone] Encounter Details Date Type Department Care Team (Latest Contact Info) Description 07/18/2013 Orders [place] [address] Alia Fraire MD [facility] [place] [address] Mammographic microcalcification (Primary Dx) Social History Tobacco [...] EST Hospital Encounter Non-Invasive [place] [address] Arrived documented as of this encounter Results [...] are present on specimen digital X-ray. A [place] Eviva-Stereo 13 Cylinder marker clip was placed. [...] calcifications are present on specimendigital X-ray. A [place] Eviva-Stereo 13 Cylinder marker clip was placed. [...] microcalcification documented in this encounter Care Teams Vest Front Presser Relationship Specialty Start Date End Date Lolly Oliveira MD [address] [place] [address] PCP - General 07/17/13 documented as of this encounter
--- OUTSIDE RECORDS SUMMARY | 2023-11-19 11:11 | XMS_ITS | Encounter Summary ---
Author Organization [facility] [place] [address] Care Team Providers Care Surgical Device Sales Representative Name Role Phone Lolly Oliveira MD Primary Care Provider [phone] Encounter Details Date Type Department Care Team (Latest Contact Info) Description 07/26/2013 9:44 AM EDT - 07/26/2013 11:59 PM EDT Hospital [place] [address] CLINIC, Lolly So MD [address] [place], [place] [id number] Mammographic microcalcification Discharge Disposition: Home Social History [...] AM EST Hospital Encounter Non-Invasive [place] [address] Arrived documented as of this encounter Procedures [...] are present on specimen digital X-ray. A T-Quad 22-Stereo 13 Cylinder marker clip was placed. Cranio-caudal [...] mLs documented in this encounter Care Teams Surgical Device Sales Representative Relationship Specialty Start Date End Date Lolly Oliveira MD [address] [place] [address] PCP - General 07/17/13 documented as of this encounter
--- OUTSIDE RECORDS SUMMARY | 2023-11-19 11:11 | XMS_ITS | Encounter Summary ---
Author Organization [facility] [place] [address] Care Team Providers Care Auto Specialty Services Manager Name Role Phone Lolly Oliveira MD Primary Care Provider Reason for Visit * Reason Onset Date Comments Pre Procedure Call 07/01/2022 Encounter Details Date Type Department Care Team (Late st Contact Info) Description 07/01/2022 Telephone Cardiology at [address] [phone] Rosenda Sutton RN Pre Procedure Call Social History Tobacco Use Types Packs/Day Years Used Date Smoking Tobacco: Never Sex and Gender Information Value Date Recorded Sex Assigned at Not on file Gender Identity Not on file Sexual Orientation Not on file documented as of this encounter Miscellaneous Notes * Telephone Encounter - Rosenda Sutton RN - 07/01/2022 9:30 AM EDTSummary: Pre Procedure Call: HOME ENERGY RATER implant EP LOAN ANALYST COORDINATION CHECKLIST Patient Name: Luna Mott Patient Performing Mold Yarn Supervisor: Lalit Mcmahon Referring Provider: Lolly Oliveira Date of Procedure: 07/23/22 Arrival Time/ Case Time: 12:00 pm / 1:00 pm Check In Location: [facility] Specialist Desk 4W Date Patient was Called: 07/01/22 Procedure: HOME ENERGY RATER Company: [employer] Type: HOME ENERGY RATER-D Laterality: LEFT Orders: Yes Lab Orders: Yes [...] overnight , understands that they will need bicycle taxi driver on day of discharge Notified pt that Goff catheter may be placed on day of procedure depending on type & duration of case. documented in this encounter Plan of Treatment Upcoming Encounters Date Type Department Care Team (Late st Contact Info) Description 01/16/2024 10:00 AM [facility] Hospital Encounter Non-[place] [address] Arrived documented as of this encounter Visit Diagnoses Not on filedocumented in this encounter Care Teams Auto Specialty Services Manager Relationship Specialty Start Date End Date Lolly Oliveira MD [address] [place] [address] PCP - General 07/17/13 documented as of this encounter
--- OUTSIDE RECORDS SUMMARY | 2023-11-19 11:11 | XMS_ITS | Encounter Summary ---
Author Organization [facility] [place] [address] Care Team Providers Care Client Relations Representative Name Role Phone Lolly Oliveira MD Primary Care Provider [phone] Encounter Details Date Type Department Care Team (Latest Contact Info) Description 07/17/2013 8:40 AM EDT - 07/17/2013 11:59 PM EDT Hospital Encounter XRay at [address] [place] [address] CLINIC, DR [facility] Discharge Disposition: Home Social [...] AM EST Hospital Encounter Non-[place] [address] Arrived documented as of this encounter Visit Diagnoses Not on filedocumented in this encounter Care Teams Client Relations Representative Relationship Specialty Start Date End Date Lolly Oliveira MD [address] [place] [address] PCP - General 07/17/13 documented as of this encounter
--- OUTSIDE RECORDS SUMMARY | 2023-11-19 11:11 | XMS_ITS | Encounter Summary ---
Author Organization [facility] [place] [address] Care Team Providers Care Director Of Business Applications Name Role Phone Lolly Oliveira MD Primary Care Provider [phone] Reason for Visit * Reason Comments Follow-up Encounter Details Date Type Department Care Team (Late st Contact Info) Description 07/02/2022 8:00 AM EDT Office Visit Dermatology at [address] [phone] Clay Ramírez MD [address] [facility] [place] [address] Psoriasis, guttate Social History Tobacco Use Types [...] [facility] En[facility] Non-Invasive [place] [address] Arrived documented as of this encounter Visit Diagnoses Diagnosis Psoriasis, guttate Other psoriasis documented in this encounter Care Teams Director Of Business Applications Relationship Specialty Start Date End Date Lolly Oliveira MD [address] [place] [address] PCP - General 07/17/13 documented as of this encounter
--- OUTSIDE RECORDS SUMMARY | 2023-11-19 11:11 | XMS_ITS | Encounter Summary ---
Author Organization [facility] [place] [address] Care Team Providers Care Preventive Medicine Officer Name Role Phone Unavailable Primary Care Provider Unavailabl e Encounter Details Date Type Department Care Team (Late st Contact Info) Description 07/04/2012 [place] [address] Eleno Christian MD [facility] DIAGNOSTIC [place] [address] Social History Tobacco Use Types Packs/Day Years [...] AM EST Hospital Encounter Non-Invasive [place] [address] Arrived documented as of this encounter Procedures [...] is a Non-reportable exam Eleno Christian MD [facility] FILM LIBRARY ORD ERABLES documented in this encounter Visit Diagnoses Not on filedocumented in this encounter
--- OUTSIDE RECORDS SUMMARY | 2023-11-19 11:11 | XMS_ITS | Encounter Summary ---
Author Organization [facility] [place] [address] Care Team Providers Care Sea Captain Name Role Phone Lolly Oliveira MD Primary Care Provider [phone] Encounter Details Date Type Department Care Team (Latest Contact Info) Description 07/26/2013 9:45 AM EDT - 07/26/2013 11:59 PM EDT Hospital En[place] [address] Mammographic microcalcification Social History Tobacco Use Types [...] AM EST Hospital Encounter [place] [address] Arrived documented as of this encounter Procedures [...] microcalcification documented in this encounter Care Teams Sea Captain Relationship Specialty Start Date End Date Lolly Oliveira MD [address] [place] [address] PCP - General 07/17/13 documented as of this encounter
--- OUTSIDE RECORDS SUMMARY | 2023-11-19 11:11 | XMS_ITS | Encounter Summary ---
[place] [address] Care Team Providers Care Grid Casting Machine Operator Helper Name Role Phone Lolly Oliveira MD Primary Care Provider [phone] Encounter Details Date Type Department Care Team [...] AM EST Hospital Encounter Non[place] [address] Arrived documented as of this encounter Visit Diagnoses Not on filedocumented in this encounter Care Teams Grid Casting Machine Operator Helper Relationship Specialty Start Date End Date Lolly Oliveira MD [address] [place] [address] PCP - General 07/17/13 documented as of this encounter
--- OUTSIDE RECORDS SUMMARY | 2023-11-19 11:11 | XMS_ITS | Encounter Summary ---
Author Organization [facility] [address] Care Team Providers Care User Experience Analyst Name Role Phone Lolly Oliveira MD Primary Care Provider [phone] Encounter Details Date Type Department Care Team (Latest Contact Info) Description 07/20/2013 9:26 AM EDT - 07/20/2013 11:59 PM EDT Hospital En[place] [address] CLINIC, Lolly So MD [address] [place], [place] [id number] Mammographic microcalcification Discharge Disposition: Home Social History [...] EST Hospital Encounter Non-[place] [address] Arrived documented as of this encounter Procedures [...] does not layer and, therefore, are not benefits representative of milk of calcium. Again, these [...] does not layer and, therefore, are not benefits representative of milk of calcium. Again, these have an amorphous andpunctate appearance and remain indeterminate. Stereotactic guided biopsy isrecommended. Alia Fraire MD IMG MAMMO ORDERABLES documented in this encounter Visit Diagnoses Diagnosis Mammographic microcalcification documented in this encounter Care Teams User Experience Analyst Relationship Specialty Start Date End Date Lolly Oliveira MD [address] [place] [address] PCP - General 07/17/13 documented as of this encounter
--- OUTSIDE RECORDS SUMMARY | 2023-11-19 11:11 | XMS_ITS | Encounter Summary ---
[place] [address] Care Team Providers Care Business Sales Consultant Name Role Phone Lolly Oliveira MD Primary Care Provider [phone] Encounter Details Date Type Department Care Team [...] AM EST Hospital Encounter Non-Invasive [place] [address] Arrived documented as of this encounter Visit Diagnoses Not on filedocumented in this encounter Care Teams Business Sales Consultant Relationship Specialty Start Date End Date Lolly Oliveira MD [address] [place] [address] PCP - General 07/17/13 documented as of this encounter
--- OUTSIDE RECORDS SUMMARY | 2023-11-19 11:11 | XMS_ITS | Encounter Summary ---
[place] [address] Care Team Providers Care Eye Clinic Manager Name Role Phone Lolly Oliveira MD Primary Care Provider [phone] Encounter Details Date Type Department Care Team (Late st Contact Info) Description 07/17/2013 [place] [address] Lolly Oliveira MD [address] [place], [place] [id number] Social History Tobacco Use Types Packs/Day Years [...] AM EST Hospital Encounter Non[place] [address] Arrived documented as of this encounter Procedures Procedure Name Priority Date/Time Associated Diagnosis Comments REQUEST FOR 2ND READ MAMMO Routine 07/17/2013 8:45 AM EDT documented in this encounter Results * Request for 2nd read Mammo (07/17/2013 8:45 AM EDT) Anatomical Region Laterality Modality Other 07/17/2013 8:45 AM EDT Narrative 07/17/2013 3:57 PM EDT INTERPRETATION OF OUTSIDE MAMMOGRAMS (PERFORMED ON 07/06/13 AND 07/14/13) FROM [facility] DATED 07/17/13: ?? DIAGNOSTIC IMAGING SUMMARY: ?? [...] OUTSIDE MAMMOGRAMS (PERFORMED ON 07/06/13 AND 07/14/13) [facility] DATED 07/17/13: DIAGNOSTIC IMAGING SUMMARY: RIGHT [...] on filedocumented in this encounter Care Teams Eye Clinic Manager Relationship Specialty Start Date End Date Lolly Oliveira MD [address] [place] [address] PCP - General 07/17/13 documented as of this encounter
--- OUTSIDE RECORDS SUMMARY | 2023-11-19 11:11 | XMS_ITS | Encounter Summary ---
Author Organization [facility] [place] [address] Care Team Providers Care Waistline Joiner Lockstitch Name Role Phone Lolly Oliveira MD Primary Care Provider [phone] Encounter Details Date Type Department Care Team (Late st Contact Info) Description 06/29/2011 [place] [address] Eleno Christian MD [facility] [place] [address] Social History Tobacco Use Types Packs/Day Years [...] AM EST Hospital Encounter [place] [address] Arrived documented as of this encounter Procedures [...] is a Non-reportable exam Eleno Christian MD [facility] [place] ORD ERABLES documented in this encounter Visit Diagnoses Not on filedocumented in this encounter Care Teams Waistline Joiner Lockstitch Relationship Specialty Start Date End Date Lolly Oliveira MD [address] [place] [address] PCP - General 07/17/13 documented as of this encounter
--- OUTSIDE RECORDS SUMMARY | 2023-11-19 11:11 | XMS_ITS | Encounter Summary ---
Author Organization [facility] [place] [address] Care Team Providers Care Dosier Operator Name Role Phone Lolly Oliveira MD Primary Care Provider [phone] Encounter Details Date Type Department Care Team (Late st Contact Info) Description 10/09/2021 Telephone Dermatology at [address] [address] Nora Meredith LPN Social History [...] [facility] Hospital Encounter Non-[place] [address] Arrived documented as of this encounter Visit Diagnoses Not on filedocumented in this encounter Care Teams Dosier Operator Relationship Specialty Start Date End Date Lolly Oliveira MD [address] [place] [address] PCP - General 07/17/13 documented as of this encounter
--- OUTSIDE RECORDS SUMMARY | 2023-11-19 11:11 | XMS_ITS | Encounter Summary ---
[place] [address] Care Team Providers Care Groundwater Monitoring Technician Name Role Phone Lolly Oliveira MD Primary Care Provider [phone] Encounter Details Date Type Department Care Team [...] AM EST Hospital Encounter Non-[place] [address] Arrived documented as of this encounter Visit Diagnoses Not on filedocumented in this encounter Care Teams Groundwater Monitoring Technician Relationship Specialty Start Date End Date oLlly Oliveira MD [address] [place] [address] PCP - General 07/17/13 documented as of this encounter
--- OUTSIDE RECORDS SUMMARY | 2023-11-19 11:11 | XMS_ITS | Encounter Summary ---
[place] [address] Care Team Providers Care Yard Spotter Name Role Phone Lolly Oliveira MD Primary Care Provider [phone] Encounter Details Date Type Department Care Team (Latest Contact Info) Description 07/26/2013 9:45 AM EDT - 07/26/2013 11:59 PM EDT Hospital En[place] [address] Mammographic microcalcification Social History Tobacco Use Types [...] Hospital Encounter Non-[place] [address] Arrived documented as of this encounter Procedures Procedure Name Priority Date/Time Associated Diagnosis Comments SURGICAL PATHOLOGY REPORT Routine 07/26/2013 12:12 PM EDT MAMMO SPECIMEN IMAGING DURING BIOPSY Routine 07/26/2013 11:58 AM EDT Mammographic microcalcification documented in this encounter Results * Surgical Pathology Report (07/26/2013 12:12 PM EDT) Final Diagnosis ? [facility] ? Provider: ?? ELENO CHRISTIAN ?? Pt. Name: ?? JING ALVARENGA ? Acc #: ?[id number] ?Pt. ? Col Date: ?? 07/26/2013 ? [...] Partially fragmented, fibrofatty needle core biopsies. ? [facility] ? Provider: ?? ELENO CHRISTIAN ?? Pt. Name: ?? JING ALVARENGA ? Acc #: ?[id number] ?Pt. ? Col Date: ?? 07/26/2013 ? [...] FCD, adenosis, DCIS 07/28/2013 8:29 AM EDT [facility] BREAST STRUCTURE / Unknown 07/26/2013 12:12 PM EDT 07/26/2013 12:12 PM EDT Eleno Christian MD PATHOLOGY/CYTOLOGY O RDERABLES Performing Organization Address City/State/[facility] Co ms Phone Number [facility] [place] [address] * Mammo Specimen Imaging During Biopsy (07/26/2013 [...] microcalcification documented in this encounter Care Teams Yard Spotter Relationship Specialty Start Date End Date Lolly Oliveira MD [address] [place] [address] PCP - General 07/17/13 documented as of this encounter
--- OUTSIDE RECORDS SUMMARY | 2023-11-19 11:11 | XMS_ITS | Encounter Summary ---
Author Organization [facility] [place] [address] Care Team Providers Care Weatherization Specialist Name Role Phone Lolly Oliveira MD Primary Care Provider [phone] Reason for Referral * Diagnostic Test (Routine) - Closed Specialty Diagnoses / Procedures Referred By Contac t Referred To Contact Radiology Diagnoses Left bundle branch block Nonischemic cardiomyopathy Procedures MRI Cardiac Morphology Function With Flow Velocity Quantification [facility] Contrast MRI Cardiac Morphology Function wwo Contrast Lalit Mcmahon MD [facility] [place] [address] [place] [address] Referral ID Status Reason Start Date Expiration Date V isits Requested Visits Authorized [id number] Closed Specialty Service Requested 05/06/2022 11/07/2023 2 1 Reason for Visit * Diagnostic Test (Routine) - Closed Specialty Diagnoses / Procedures Referred By Contac t Referred To Contact Radiology Diagnoses Left bundle branch block Nonischemic cardiomyopathy Procedures MRI Cardiac Morphology Function With Flow Velocity Quantification o Contrast MRI Cardiac Morphology Function wwo Contrast Lalit Mcmahon MD [facility] [address] [place] [address] Referral ID Status Reason Start Date Expiration Date V isits Requested Visits Authorized [id number] Closed Specialty Service Requested 05/06/2022 11/07/2023 2 1 Encounter Details Date Type Department Care Team (Latest Contact Info) Description 07/14/2022 9:08 AM EDT Hospital Encounter MRI at [facility] [place] [address] Lalit Mcmahon MD [facility] [place] [address] Left bundle branch block; Nonischemic cardiomyopathy Discharge [...] : 1950 [address] [facility] [address] Female [phone] (home) No relevant phone numbers on file. Lolly Oliveira MD None Allergies Allergen Reactions ??? Sulfa (Sulfonamide Antibiotics) Date/Time of call: July 07, 2022/11:03 AM/ PREVIOUS MRI SCAN? HEIGHT: WEIGHT: SCHEDULED SCAN: MRI CARDIAC MORPHOLOGY FUNCTION WITH FLOW VELOCITY QUANTIFICATION WWO CONTRAST [[id number]] Order Questions Answers Where will study be performed? [facility] Radiology [120] SUBJECTIVE: Very Claustrophobic CAN [...] ( K[place] ) You must have a long haul truck driver present when you check in. This patient has been informed that they require a long haul truck driver to drive them home after this procedure. In the absence of a long haul truck driver, IR will not be able to sedate for your scan. Pt verbalized understanding of these instructions during the pre-procedure education via phone. Yes Name of long haul truck driver: Daughter Phone number: PRIOR SCAN DATE/S SEDATION TYPE SUCCESSFUL 07/14/22 MRI Cardiac Morphology Function with Flow Velocity Quantification wwo Contrast Ativan 1mg x 1 dose Pass Revised 08/03/17 documented in this encounter Plan of Treatment Upcoming Encounters Date Type Department Care Team (Late st Contact Info) Description 01/16/2024 10:00 AM [facility] Hospital Encounter Non[place] [address] Arrived documented as of this encounter Procedures [...] who have questions please contact the health child day care teacher that requested your imaging first. ? Electronically signed by: Greyson Herron MD, [facility] ([phone]), at 07/15/2022 9:53 AM Narrative 07/15/2022 9:53 [...] patients who have questions please contactthe health child day care teacher that requested your imaging first. Lalit [...] mg documented in this encounter Care Teams Weatherization Specialist Relationship Specialty Start Date End Date Lolly Oliveira MD [address] [place] [address] PCP - General 07/17/13 documented as of this encounter
--- OUTSIDE RECORDS SUMMARY | 2023-11-19 11:11 | XMS_ITS | Encounter Summary ---
Author Organization [facility] [place] [address] Care Team Providers Care Material Reprocessing Associate Name Role Phone Lolly Oliveira MD Primary Care Provider [phone] Reason for Visit * Reason Comments Follow-up Encounter Details Date Type Department Care Team (Late st Contact Info) Description 06/06/2021 8:45 AM EDT Office Visit Dermatology at [address] [address] Clay Ramírez MD [address] [facility] [place] [address] Psoriasis, guttate Social History Tobacco Use Types [...] [facility] Hospital Encounter [place] [address] Arrived documented as of this encounter Visit Diagnoses Diagnosis Psoriasis, guttate Other psoriasis documented in this encounter Care Teams Material Reprocessing Associate Relationship Specialty Start Date End Date Lolly Oliveira MD [address] [place] [address] PCP - General 07/17/13 documented as of this encounter
--- OUTSIDE RECORDS SUMMARY | 2023-11-19 11:11 | XMS_ITS | Encounter Summary ---
Author Organization [facility] [place] [address] Care Team Providers Care Pediatrician/Medical Doctor Name Role Phone Lolly Oliveira MD Primary Care Provider [phone] Encounter Details Date Type Department Care Team (Late st Contact Info) Description 04/01/2021 3:30 PM EST Office Visit Dermatology at [address] [phone] Clay Ramírez MD [address] [facility] [address] [place] [address] Psoriasis, guttate Social History Tobacco Use Types [...] AM EST Hospital Encounter Non-[place] [address] Arrived documented as of this encounter Visit Diagnoses Diagnosis Psoriasis, guttate Other psoriasis documented in this encounter Care Teams Pediatrician/Medical Doctor Relationship Specialty Start Date End Date Lolly Oliveira MD [address] [place] [address] PCP - General 07/17/13 documented as of this encounter
--- OUTSIDE RECORDS SUMMARY | 2023-11-19 11:11 | XMS_ITS | Encounter Summary ---
[place] [address] Care Team Providers Care Block Trader Name Role Phone Lolly Oliveira MD Primary Care Provider [phone] Encounter Details Date Type Department Care Team [...] AM EST Hospital Encounter Non-Invasive [place] [address] Arrived documented as of this encounter Visit Diagnoses Not on filedocumented in this encounter Care Teams Block Trader Relationship Specialty Start Date End Date Lolly Oliveira MD [address] [place] [address] PCP - General 07/17/13 documented as of this encounter
--- OUTSIDE RECORDS SUMMARY | 2023-11-19 11:11 | XMS_ITS | Encounter Summary ---
Author Organization [place] [address] Care Team Providers Care Drug And Alcohol Counselor Name Role Phone Lolly Oliveira MD Primary Care Provider [phone] Reason for Referral * Diagnostic Test (Routine) - Closed Specialty Diagnoses / Procedures Referred By Contac t Referred To Contact Radiology Diagnoses Left bundle branch block Nonischemic cardiomyopathy Procedures MRI Cardiac Morphology Function With Flow Velocity Quantification wwo Contrast MRI Cardiac Morphology Function wwo Contrast Lalit Mcmahon MD [facility] [place] [address] [place] [address] Referral ID Status Reason Start Date Expiration Date V isits Requested Visits Authorized [id number] Closed Specialty Service Requested 05/06/2022 11/07/2023 2 1 Encounter Details Date Type Department Care Team (Late st Contact Info) Description 05/06/2022 Orders Only Cardiology at [address] [address] Lalit Mcmahon MD [facility] [place] [address] Left bundle branch block; Nonischemic cardiomyopathy Social [...] AM EST Hospital Encounter Non-Invasive [place] [address] Arrived documented as of this encounter Results [...] who have questions please contact the health chronic care nurse that requested your imaging first. [...] patients who have questions please contactthe health chronic care nurse that requested your imaging first. Lalit Mcmahon MD IMG MRI ORDERABLES documented in this encounter Visit Diagnoses Diagnosis Left bundle branch block Other left bundle branch block Nonischemic cardiomyopathy Other primary cardiomyopathies Left bundle branch block Other left bundle branch block Nonischemic cardiomyopathy Other primary cardiomyopathies documented in this encounter Care Teams Drug And Alcohol Counselor Relationship Specialty Start Date End Date Lolly Oliveira MD [address] [place] [address] PCP - General 07/17/13 documented as of this encounter
--- OUTSIDE RECORDS SUMMARY | 2023-11-19 11:11 | XMS_ITS | Encounter Summary ---
Author Organization [facility] [place] [address] Care Team Providers Care Bark Scaler Name Role Phone Unavailable Primary Care Provider Unavailabl e Encounter Details Date Type Department Care Team (Late st Contact Info) Description 07/14/2013 [place] [address] Eleno Christian MD [facility] [place] [address] Social History Tobacco Use Types Packs/Day Years [...] AM EST Hospital Encounter Non-[place] [address] Arrived documented as of this encounter Visit Diagnoses Not on filedocumented in this encounter
--- OUTSIDE RECORDS SUMMARY | 2023-11-19 11:11 | XMS_ITS | Encounter Summary ---
Author Organization [facility] Address [facility] [place] [address] Care Team Providers Care Student Financial Aid Manager Name Role Phone Lolly Oliveira MD Primary Care Provider [phone] Encounter Details Date Type Department Care Team (Late st Contact Info) Description 07/16/2022 Telephone Cardiology at [address] [phone] Lalit Mcmahon MD [facility] [place] [address] Social History Tobacco Use Types Packs/Day Years [...] nonischemic cardiomyopathy. She is scheduled for [facility] implantation next week and looks forward to the procedure. We will see each other next week. Lalit Mcmahon MD [facility] Cardiac Electrophysiology 07/16/2022 8:52 AM documented in this encounter Plan of Treatment Upcoming Encounters Date Type Department Care Team (Late st Contact Info) Description 01/16/2024 10:00 AM EST Hospital Encounter Non-Invasive [place] [address] Arrived documented as of this encounter Visit Diagnoses Not on filedocumented in this encounter Care Teams Student Financial Aid Manager Relationship Specialty Start Date End Date Lolly Oliveira MD [address] [place] [address] PCP - General 07/17/13 documented as of this encounter
--- OUTSIDE RECORDS SUMMARY | 2023-11-19 11:11 | XMS_ITS | Encounter Summary ---
[place] [address] Care Team Providers Care Car Salter Name Role Phone Lolly Oliveira MD Primary Care Provider [phone] Encounter Details Date Type Department Care Team (Late st Contact Info) Description 04/09/2022 Refill Dermatology at [address] [address] Nora Meredith, DELIVERY STOCK CLERK Social History Tobacco Use Types Packs/Day Years [...] [facility] [place] [address] Arrived documented as of this encounter Visit Diagnoses Not on filedocumented in this encounter Care Teams Car Salter Relationship Specialty Start Date End Date Lolly Oliveira MD [address] [place] [address] PCP - General 07/17/13 documented as of this encounter
--- OUTSIDE RECORDS SUMMARY | 2023-11-19 11:11 | XMS_ITS | Encounter Summary ---
Author Organization [facility] [place] [address] Care Team Providers Care Lubrication Worker Name Role Phone Lolly Oliveira MD Primary Care Provider [phone] Reason for Visit * Reason Comments Psoriasis Encounter Details Date Type Department Care Team (Late st Contact Info) Description 04/09/2022 1:45 PM EST Office Visit Dermatology at [address] [address] Clay Ramírez MD [address] [facility] [place] [address] Psoriasis, guttate Social History Tobacco Use Types [...] AM EST Hospital Encounter Non-[place] [address] Arrived documented as of this encounter Visit Diagnoses Diagnosis Psoriasis, guttate Other psoriasis documented in this encounter Care Teams Lubrication Worker Relationship Specialty Start Date End Date Lolly Oliveira MD [address] [place] [address] PCP - General 07/17/13 documented as of this encounter
--- OUTSIDE RECORDS SUMMARY | 2023-11-24 11:09 | XMS_ITS | Encounter Summary ---
Author Organization [facility] Address [address] [place] [address] Care Team Providers Care Adjunct Mathematics Instructor Name Role Phone Lolly Oliveira MD Primary Care Provider [phone] Encounter Details Date Type Department Care Team (Late st Contact Info) Description 04/17/2005 Results Only [facility] conversion [address] [place] [address] Lolly Oliveira MD [address] [place], [place] [id number] Social History Tobacco Use Types Packs/Day Years [...] ? JING ALVARENGA ? Accession #: ? [id number] : ? 1950 (Age: 54) ??F ?Collect Date: ? 04/17/2005 Location: ? [facility] ? Receive Date: ? 04/21/2005 Provider: ?LOLLY OLIVEIRA MD Copy to: ? Specimen/Source: ?ThinPrep Pap Test, Cervix/Endocervix, processed on inDineroPrep Imaging System, with manual evaluation Last Menstrual [...] Oliveira MD PATHOLOGY ORDERABLES [facility] [address] [place] [address] documented in this encounter Visit Diagnoses Not on filedocumented in this encounter Care Teams Adjunct Mathematics Instructor Relationship Specialty Start Date End Date Lolly Oliveira MD [address] [place] [address] PCP - General 11/13/08 documented as of this encounter
--- OUTSIDE RECORDS SUMMARY | 2023-11-24 11:09 | XMS_ITS | Encounter Summary ---
Author Organization [facility] Address [address] [place] [address] Care Team Providers Care Injection Operator Name Role Phone Lolly Oliveira MD Primary Care Provider [phone] Encounter Details Date Type Department Care Team (Late st Contact Info) Description 03/21/2019 Lab Requisition [facility] Pathology & Laboratory Medicine - [address] [address] Unknown, Provider, Social History Tobacco Use Types [...] 211 - 911 pg/mL 03/22/2019 11:52 EST [facility] Blood VENOUS BLOOD / Unknown 03/16/2019 9:25 EST 03/21/2019 21:35 EST Provider Unknown CHEMISTRY & BLOOD GA S ORDERABLES [facility] [address] [place] [address] documented in this encounter Visit Diagnoses Not on filedocumented in this encounter Care Teams Injection Operator Relationship Specialty Start Date End Date Lolly Oliveira MD [address] [place] [address] PCP - General 11/13/08 documented as of this encounter
--- OUTSIDE RECORDS SUMMARY | 2023-11-24 11:09 | XMS_ITS | Encounter Summary ---
Author Organization [facility] Address [address] [place] [address] Care Team Providers Care Helper Animal Laboratory Name Role Phone Lolly Oliveira MD Primary Care Provider [phone] Encounter Details Date Type Department Care Team (Late st Contact Info) Description 04/01/2005 Results Only [facility] - Maple conversion [address] [place] [address] Blair Dukes MD [address] [place] [id number] Social History Tobacco Use Types Packs/Day Years [...] ? JING ALVARENGA ? Accession #: ? [id number] ? : ? 1950 (Age: 54) ??F [...] (A). Received in [place]e' s fixative labelled [place] and #2 ??transverse colon bx is a single 0.2 x 0.2 x 0.2 cm tissue, submitted intact as (B). ??(Dr. Lechuga)/[facility] End of Report [facility] 04/01/2005 04/02/2005 15: 24 EST Blair Dukes MD PATHOLOGY ORDERABLES [facility] [address] [place] [address] documented in this encounter Visit Diagnoses Not on filedocumented in this encounter Care Teams Helper Animal Laboratory Relationship Specialty Start Date End Date Lolly Oliveira MD [address] [place] [address] PCP - General 11/13/08 documented as of this encounter
--- OUTSIDE RECORDS SUMMARY | 2023-11-24 11:09 | XMS_ITS | Clinical Summary ---
Author Organization [facility] Address [address] [place] [address] Care Team Providers Care Tableau Administrator Name Role Phone Lolly Oliveira MD [...] COVID-19 Vaccine ( season) 2023 Care Teams Tableau Administrator Relationship Specialty Start Date End Date Lolly Oliveira MD [address] [place], [place] [id number] PCP - General 11/13/08
--- OUTSIDE RECORDS SUMMARY | 2023-11-24 11:09 | XMS_ITS | Encounter Summary ---
Author Organization [facility] Address [address] [place] [address] Care Team Providers Care Gun Numberer Name Role Phone Lolly Oliveira MD Primary Care Provider [phone] Encounter Details Date Type Department Care Team (Late st Contact Info) Description 06/16/2012 Results Only [facility] Laboratory Services - [facility] ([facility]) [address] [place], [place] [phone] Lolly Oliveira MD [address] [place], [place] [phone] Social History Tobacco Use Types Packs/Day Years [...] ? JING ALVARENGA ? Accession #: ? [id number] : ? 1950 (Age: 61) ??F ?Collect [...] MD PATHOLOGY ORDERABLES [facility] [address] [place] [address] documented in this encounter Visit Diagnoses Not on filedocumented in this encounter Care Teams Gun Numberer Relationship Specialty Start Date End Date Lolly Oliveira MD [address] [place] [address] PCP - General 11/13/08 documented as of this encounter
--- OUTSIDE RECORDS SUMMARY | 2023-11-24 11:09 | XMS_ITS | Encounter Summary ---
Author Organization [facility] Address [address] [place] [address] Care Team Providers Care Automotive Glass Specialist Name Role Phone Lolly Oliveira MD Primary Care Provider [phone] Encounter Details Date Type Department Care Team (Late st Contact Info) Description 05/02/[address] [facility] - Maple conversion [address] [place] [address] Lolly Oliveira MD [address] [place], [place] [phone] Social History Tobacco Use Types Packs/Day Years [...] 68. [facility] Report Status Final [id number] [facility] 05/02/2004 9:32 EST 05/10/2004 9:32 EST Lolly Oliveira MD MICROBIOLOGY - GENER AL ORDERABLES [facility] [address] [place] [address] * CYTOPATHOLOGY (05/02/2004 0:00 EST) Pathology Report: CYTOPATHOLOGY REPORT Reports generated via electronic interface contain original data; however they are lacking the format of the original report. Caution should be taken when reading/interpreti ng unformatted reports. Name: ? JING ALVARENGA ? Accession #: ? [id number] : ? 1950 (Age: 53) ??F ?Collect [...] Oliveira MD PATHOLOGY ORDERABLES Performing Organization Address City/State/[facility] Co de Phone Number [facility] [address] [place] [address] documented in this encounter Visit Diagnoses Not on filedocumented in this encounter Care Teams Automotive Glass Specialist Relationship Specialty Start Date End Date Lolly Oliveira MD [address] [place] [address] PCP - General 11/13/08 documented as of this encounter
--- OUTSIDE RECORDS SUMMARY | 2023-11-24 11:09 | XMS_ITS | Encounter Summary ---
Author Organization [facility] Address [address] [place] [address] Care Team Providers Care Bag Sorter Name Role Phone Lolly Oliveira MD Primary Care Provider [phone] Encounter Details Date Type Department Care Team (Late st Contact Info) Description 04/12/2007 Results Only [facility] - [place] conversion [address] [place] [address] Lolly Oliveira MD [address] [place], [place] [phone] Social History Tobacco Use Types Packs/Day Years [...] ? JING ALVARENGA ? Accession #: ? [id number] : ? 1950 (Age: 56) ??F ?Collect Date: ? 04/12/2007 Location: ? [facility] ? Receive Date: ? 04/13/2007 Provider: ?LOLLY OLIVEIRA MD Copy to: ? Specimen/Source: ?ThinPrep Pap Test, Cervix/Endocervix, processed on [employer] ThinPrep Imaging System, with manual evaluation Last [...] Oliveira MD PATHOLOGY ORDERABLES [facility] [address] [place] [address] documented in this encounter Visit Diagnoses Not on filedocumented in this encounter Care Teams Bag Sorter Relationship Specialty Start Date End Date Lolly Oliveira MD [address] [place] [address] PCP - General 11/13/08 documented as of this encounter
--- OUTSIDE RECORDS SUMMARY | 2023-11-24 11:09 | XMS_ITS | Encounter Summary ---
Author Organization [facility] Address [address] [place] [address] Care Team Providers Care Marketing Budget Analyst Name Role Phone Lolly Oliveira MD Primary Care Provider [phone] Encounter Details Date Type Department Care Team (Late st Contact Info) Description 02/11/2021 Lab Requisition [facility] Pathology & Laboratory Medicine - [address] [address] Outr Resulting Lab, Provider Social History Tobacco [...] Outr Resulting Lab MICROBIOLOGY - GENERAL ORDERABLES [facility] [address] [place] [address] * COVID-19 TESTING (02/11/2021 8:00 EST) COVID-19 rt-PCR Result Negative Negative 02/12/2021 14:17 EST [facility] Comment: This test [...] was performed using the med SARS-CoV-2 assay ([employer] on the Med 6800 System Performing Lab Med 6800 [facility] 02/12/2021 14:17 EST [facility] Swab 02/11/2021 8:00 EST 02/11/2021 22:22 EST Provider Outr Resulting Lab MICROBIOLOGY - GENERAL ORDERABLES [facility] [address] [place] [address] documented in this encounter Visit Diagnoses Not on filedocumented in this encounter Care Teams Marketing Budget Analyst Relationship Specialty Start Date End Date Lolly Oliveira MD [address] [place] [address] PCP - General 11/13/08 documented as of this encounter
--- OUTSIDE RECORDS SUMMARY | 2023-11-24 11:09 | XMS_ITS | Referral Summary ---
Author Organization [facility] Address [address] [place] [address] Care Team Providers Care Lead Mason Tender Name Role Phone Lolly Oliveira MD Primary Care Provider [phone] Social History Tobacco Use Types Packs/Day Years Used Date Smoking Tobacco: Never Assessed Sex and Gender Information Value Date Recorded Sex Assigned at Not on file Gender Identity Not on file Sexual Orientation Not on file Plan of Treatment Not on file Care Teams Lead Mason Tender Relationship Specialty Start Date End Date Lolly Oliveira MD [address] [place] [address] PCP - General 11/13/08
--- OUTSIDE RECORDS SUMMARY | 2023-11-24 11:09 | XMS_ITS | Encounter Summary ---
Author Organization [facility] Address [address] [place] [address] Care Team Providers Care Fluid Designer Name Role Phone Lolly Oliveira MD Primary Care Provider [phone] Encounter Details Date Type Department Care Team (Late st Contact Info) Description 04/25/2009 Orders Only [facility] Laboratory Services - [facility] ([facility]) [address] [place], [place] [phone] Lolly Oliveira MD [address] [place], [place] [phone] Social History Tobacco Use Types Packs/Day Years [...] ? JING ALVARENGA ? Accession #: ? [id number] ? : ? 1950 (Age: 58) ??F [...] reviewed and electronically signed by: ? Helena Stacy, [place](ASCP) ? Report Date: ??04/29/2009 10:38 ? End of Report ? [facility] 04/25/2009 04/26/2009 Lolly Oliveira MD PATHOLOGY ORDERABLES [facility] [address] [place] [address] documented in this encounter Visit Diagnoses Not on filedocumented in this encounter Care Teams Fluid Designer Relationship Specialty Start Date End Date Lolly Oliveira MD [address] [place] [address] PCP - General 11/13/08 documented as of this encounter
--- OUTSIDE RECORDS SUMMARY | 2023-11-24 11:09 | XMS_ITS | Encounter Summary ---
Author Organization [facility] Address [address] [place] [address] Care Team Providers Care Adviser Sales Name Role Phone Unavailable Primary Care Provider Unavailabl e Encounter Details Date Type Department Care Team (Late st Contact Info) Description 11/07/2008 Orders Only [facility] Laboratory Services - [facility]) [address] [place] [address] Kenneth Parker MD [address] [place] [place] [address] Social History Tobacco Use Types Packs/Day Years [...] ? LYLE, JING ? Accession #: ? [id number] ? : ? 1950 (Age: 58) ??F [...] Parker MD PATHOLOGY ORDERABLES Performing Organization Address City/State/[facility] Co de Phone Number [facility] [address] [place] [address] documented in this encounter Visit Diagnoses Not on filedocumented in this encounter
--- OUTSIDE RECORDS SUMMARY | 2023-11-24 11:09 | XMS_ITS | Encounter Summary ---
Author Organization [facility] Address [address] [place] [address] Care Team Providers Care Site Planner Name Role Phone Lolly Oliveira MD Primary Care Provider [phone] Encounter Details Date Type Department Care Team (Late st Contact Info) Description 02/20/2020 Lab Requisition [facility] Pathology & Laboratory Medicine - [address] [id number] Outr Resulting Lab, Provider Social History Tobacco [...] in accordance with CLIA regulations, [employer] [employer] (CAP) guidelines (May 25, 2019), and FDA guidance (May 06, 2019). This test is only for use under the Food and Drug Administration's Emergency Use Authorization. Swab ENTIRE NASOPHARYNX / Unknown 02/19/2020 16:30 EST 02/20/2020 16:09 EST Provider Outr Resulting Lab MICROBIOLOGY - GENERAL ORDERABLES [facility] [place] * COVID-19 TESTING (02/19/2020 16:30 EST) COVID-19 rt-PCR Result NEGATIVE Negative 02/22/2020 23:41 EST [facility] Comment: 2019-novel Coronavirus (2019-nCoV) not [...] in accordance with CLIA regulations, [employer] [place] [employer] (CAP) guidelines (May 25, 2019), and FDA guidance (May 06, 2019). This test is only for use under the Food and Drug Administration's Emergency Use Authorization. Performing Lab [facility] 02/22/2020 23:41 EST [facility] Swab 02/19/2020 16:3 0 EST 02/20/2020 16:09 EST Provider Outr Resulting Lab MICROBIOLOGY - GENERAL ORDERABLES [facility] [address] [place] [address] [facility] [place] documented in this encounter Visit Diagnoses Not on filedocumented in this encounter Care Teams Site Planner Relationship Specialty Start Date End Date Lolly Oliveira MD [address] [place] [address] PCP - General 11/13/08 documented as of this encounter
--- OUTSIDE RECORDS SUMMARY | 2023-11-24 11:09 | XMS_ITS | Encounter Summary ---
Author Organization [facility] Address [address] [place] [address] Care Team Providers Care Networking Administrator Name Role Phone Lolly Oliveira MD Primary Care Provider [phone] Encounter Details Date Type Department Care Team (Late st Contact Info) Description 05/27/2021 Lab Requisition [facility] Pathology & Laboratory Medicine - [address] [address] Iman Moran, DO [address] [place], [place] [phone] Encounter for other general examination Social History [...] management options, if applicable. 05/30/2021 13:31 EDT [facility] Final Diagnosis A. COLON, POLYP AT 90 CM, BIOPSY/POLYPECTOM Y: - Tubular adenoma. 05/30/2021 13:31 [facility] Attestation By the signature below, the attending physician certifies that they have 1) personally conducted a gross and/or microscopic examination of the described specimen(s), and/or personally interpreted the results of laboratory testing of the described specimen(s), and 2) personally rendered or confirmed the above diagnosis. 05/30/2021 13:31 [facility] at 1331 Clinical History Severe diverticula and polypectomy x1 05/30/2021 13:31 [facility] Gross Description A. Received in formalin labelled with proper patient identification (initials J, K) and colon polyp x1 at 90 cm is a light pineda polypoid tissue measuring 0.2 x 0.2 x 0.2 cm. Submitted intact in A1. MICKEY CARLOS(ASCP) 05/27/2021 19:11 05/30/2021 13:31 [facility] Performing Lab [facility] 05/30/2021 13:31 [facility] Scanned Images 05/30/2021 13:31 [facility] Tissue ENTIRE COLON / Unknown 05/27/2021 11:23 EDT 05/27/2021 16:33 EDT Iman Moran DO PATHOLOGY ORDERABLES [facility] [address] [place] [address] documented in this encounter Visit Diagnoses Diagnosis Encounter for other general examination documented in this encounter Care Teams Networking Administrator Relationship Specialty Start Date End Date Lolly Oliveira MD [address] [place] [address] PCP - General 11/13/08 documented as of this encounter
--- OUTSIDE RECORDS SUMMARY | 2023-11-24 11:09 | XMS_ITS | Encounter Summary ---
Author Organization [facility] Address [address] [place] [address] Care Team Providers Care Redeye Gunner Name Role Phone Lolly Oliveira MD Primary Care Provider [phone] Encounter Details Date Type Department Care Team (Late st Contact Info) Description 03/06/2003 Results Only [facility] - Lily conversion [address] [place] [address] Lolly Oliveira MD [address] [place], [place] [phone] Social History Tobacco Use Types Packs/Day Years [...] de Phone Number [facility] [address] [place] [address] documented in this encounter Visit Diagnoses Not on filedocumented in this encounter Care Teams Redeye Gunner Relationship Specialty Start Date End Date Lolly Oliveira MD [address] [place] [address] PCP - General 11/13/08 documented as of this encounter
--- OUTSIDE RECORDS SUMMARY | 2023-11-24 11:09 | XMS_ITS | Encounter Summary ---
Author Organization [facility] Address [address] [place] [address] Care Team Providers Care Global Regulatory Affairs Manager Name Role Phone Lolly Oliveira MD Primary Care Provider [phone] Encounter Details Date Type Department Care Team (Late st Contact Info) Description 11/13/2020 Lab Requisition [facility] Pathology & Laboratory Medicine - [address] [address] Outr Resulting Lab, Provider Social History Tobacco [...] Outr Resulting Lab MICROBIOLOGY - GENERAL ORDERABLES [facility] [address] [place] [address] * COVID-19 TESTING (11/13/2020 7:30 EDT) COVID-19 rt-PCR Result Negative Negative 11/14/2020 11:46 EDT [facility] Comment: This test has [...] performed using the med SARS-CoV-2 assay ([employer] on the Med 6800 System Performing Lab Med 6800 [facility] 11/14/2020 11:46 EDT [facility] Swab 11/13/2020 7:30 EDT 11/13/2020 20:57 EDT Provider Outr Resulting Lab MICROBIOLOGY - GENERAL ORDERABLES [facility] [address] [place] [address] documented in this encounter Visit Diagnoses Not on filedocumented in this encounter Care Teams Global Regulatory Affairs Manager Relationship Specialty Start Date End Date Lolly Oliveira MD [address] [place] [address] PCP - General 11/13/08 documented as of this encounter
--- OUTSIDE RECORDS SUMMARY | 2023-11-24 11:09 | XMS_ITS | Encounter Summary ---
Author Organization [facility] Address [address] [place] [address] Care Team Providers Care Hazardous Materials Waste Technician Name Role Phone Lolly Oliveira MD Primary Care Provider Encounter Details Date Type Department Care Team (Late st Contact Info) Description 05/29/2002 Results Only [facility] - Maple conversion [address] [place] [address] Silvia Diehl, [address] [place] [phone] Social History Tobacco Use Types Packs/Day Years [...] ? JING MOTT ? Accession #: ? [id number] : ? 1950 (Age: 51) ??F ?Collect Date: ? 05/29/2002 Location: ? [facility] ? Receive Date: ? 05/31/2002 Provider: ?SILVIA DIEHL APPLICATION INTEGRATOR Copy to: ? Specimen/Source: ?ThinPrep Pap Test, [...] Report [facility] 05/29/2002 05/31/2002 Silvia Diehl APPLICATION INTEGRATOR PATHOLOGY ORDERABLES [facility] [address] [place] [address] documented in this encounter Visit Diagnoses Not on filedocumented in this encounter Care Teams Hazardous Materials Waste Technician Relationship Specialty Start Date End Date Lolly Oliveira MD [address] [place] [address] PCP - General 11/13/08 documented as of this encounter
--- OUTSIDE RECORDS SUMMARY | 2023-11-24 11:10 | XMS_ITS | Encounter Summary ---
Author Organization [facility] [place] [address] Care Team Providers Care Log Sorting Supervisor Name Role Phone Lolly Oliveira MD Primary Care Provider [phone] Reason for Visit * Auth/Cert (Routine) Specialty Diagnoses / Procedures Referred By Contac t Referred To Contact Diagnoses Left bundle-branch block, unspecified Other cardiomyopathies Left bundle branch block [I44.7]Nonischemic cardiomyopathy [I42.8] Procedures PRG CATH PLMT LEFT HEART CATH & ARTS W/INJ & ANGIO IMG S&I ELECTROPHYSIOLOGY PROCEDURE Lalit Mcmahon MD [facility] [address] [facility] Referral ID Status Reason Start Date Expiration Date Visits Re quested Visits Authorized [id number] 1 1 Encounter Details Date Type Department Care Team (Late st Contact Info) Description 07/23/2022 1:00 PM EDT - 07/23/2022 5:30 PM EDT Surgery [place] [address] Lalit Mcmahon MD [facility] [place] [address] ELECTROPHYSIOLOGY PROCEDURE Social History Tobacco Use Types Packs/Day Years Used Date Smoking Tobacco: Never Tobacco Cessation:Counseling Given: Not Answered Alcohol Use Standard Drinks/Week Comments Not Currently 0 (1 standard drink = 0.6 oz pur e alcohol) [facility] Inpatient Questions Answer Date Recorded [...] Physician: Lalit Mcmahon MD Discharge Physician: Lalit Mcamhon MD Follow-up Recommendations for Providers: - s/p SHACTOR HELPER-D implant - post implant QRS 130 ms - reviewed post-implant instructions - no medication changes - Follow up in device clinic for wound/device check in ~10 days ([facility]) Inpatient Provider Contact Information: Cardiac Electrophysiology - Discharge Diagnoses (Hospital Problems) and Secondary Diagnoses (Chronic Problems): Active Hospital Problems Diagnosis ??? HFrEF (heart failure with reduced ejection fraction) Resolved Hospital Problems No resolved problems to display. Active Non-Hospital Problems Diagnosis ??? Dermatofibroma ??? Nevus ??? Solar lentigo Operations/Major Procedures: 07/23/22: [facility] SHACTOR HELPER-D implant History of Presentation: 71 y.o. female with a history of HFrEF, LBBB, QRS >150, NYHA II who is POD#1 of SHACTOR HELPER-D implant ([employer]). Hospital Course: Elective admission for SHACTOR HELPER-D implant Admitted post-implant for pain management, [...] (heart failure with reduced ejection fraction) [I50.20] SHACTOR HELPER-D implant Admission Condition: good Indication for [...] g Refills: 3 fluticasone propionate 50 mcg/actuation [place], Suspension Commonly known as: Flonase 1 spray [...] incision. Make sure to use a cloth covered helmet puller (such as a towel) in between the [...] F. The office scheduling phone number is [phone]. ARM MOVEMENT RESTRICTIONS POST-IMPLANT - Do not [...] please call the Cardiac ElectrophysiologyTriage Nurse at [phone], option 3. General Instructions None Discharge References/Attachments [...] incision. Make sure to use a cloth covered helmet puller (such as a towel) in between the [...] F. The office scheduling phone number is [phone]. ARM MOVEMENT RESTRICTIONS POST-IMPLANT - Do not [...] please call the Cardiac ElectrophysiologyTriage Nurse at [phone], option 3. documented in this encounter Medications [...] with spacer fluticasone propionate (Flonase) 50 mcg/actuation [place], Suspension 1 spray by Each Nare route [...] Cardiac Electrophysiology Post-Implant Device Interrogation Luna Mott [id number] 07/24/2022 History: Luna Mott is a 71 y.o. female with a history of HFrEF, LBBB, QRS >150, NYHA II who is POD#1 of SHACTOR HELPER-D implant ([employer]). Overall feels well this morning. Ready [...] WOB Neuro- A&Ox3 Device Interrogation: Data ?? Machining Supervisor Model # Serial # Generator [employer] [id number] Atrial Lead [employer] [id number] RV Lead [employer] 0672 [id number] LV Lead [employer] [id number] ?? Diagnostics Pacing Mode: DDD 60-130 Underlying Rhythm: [place] Atrial Episodes: None Ventricular Episodes: None FINAL PROGRAMMING: Pacing: Mode Lower rate (ppm) Upper rate (ppm) ?? DDD 60 130 VF: Rate (bpm) #Antitachycardia pacing First shock energy (J) ?? 200 Quick convert 41 VT: 170 Monitor only Monitor only ? Battery and Leads Impedances (ohms) Sensing (mV) Thresholds HV RA RV LV RA RV LV RA RV LV 73 [phone] (LVa) 7.7 13.1 >25 0.4V @ 0.4 ms 0.4V @ 0.4 ms 0.5 V @ 1.0 ms POD#1 CXR: All leads in nominal positioning Impression: 71 y.o. female who is s/p SHACTOR HELPER-D implant for LBBB, NYHA II, HFrEF. - Appropriate device function post-implant - CXR negative for post-implant complications - Changed sensed AV delay from 130 to 110 Plan: 1. Reviewed standard post-implant discharge instructions (see patient instructions) including arm restrictions, wound care, bathing, and driving 2. No medication changes. 3. Follow up in device clinic for wound/device check in ~10 days ([facility]) Fadi uNnez MD 07/24/2022 Pager: [phone] I met with the patient today and [...] agreement. ? Dr. Lalit Mcmahon, electrophysiology attending ([id number]) * Zaria Wright RN - 07/23/2022 8:28 [...] HF, QRS > 150 ms presents for SHACTOR HELPER-D placement. ROS: Denies recent fevers or [...] 0.9) flush 5 mL 5 mL Intravenous [id number] ramos MD ??? sodium chloride 0.9 % [...] HF, QRS > 150 ms presents for SHACTOR HELPER-D placement. Backup would be LBBAP lead. Antibiotics: cefazolin Rationales for, intended benefits and potential risk of planned procedures reviewed. The patient indicated understanding and agreement with the plan. Informed consent signed. Procedure checklist completed. Fadi Nunez MD Cardiac Electrophysiology Fellow [facility] Pager [phone] 07/23/2022 I met with the patient today [...] agreement. ? Dr. Lalit Mcmahon, electrophysiology attending ([id number]) documented in this encounter Miscellaneous Notes * Brief Op Note - Lalit Mcmahon MD - 07/23/2022 4:04 PM EDT Brief Operative Note Patient Name: Luna Mott : [id number] MR#: [id number] Case Date: 07/23/2022 Surgeon: Surgeon(s) and Role: [...] AM EST Hospital Encounter [place] [address] Arrived Scheduled Orders Name Type Priority Associated Diagnoses Orde r Schedule EKG 12 Lead ECG Routine Cardiac resynchronization therapy defibrillator (SHACTOR HELPER-D) in place One Time for 1 [...] (Bezet) 522 ms MUSE SYSTEM Calculated R [place] 78 degrees MUSE SYSTEM Calculated T [place] -71 degrees MUSE SYSTEM INTERPRETATION AV dual-paced [...] who have questions please contact the health pediatric care coordinator that requested your imaging first. ? [...] patients who have questions please contactthe health pediatric care coordinator that requested your imaging first. Lalit Mcmahon MD IMG DX ORDERABLES * ELECTROPHYSIOLOGY PROCEDURE (07/23/2022 1:11 PM EDT) Anatomical Region Laterality Modality Other Narrative 07/23/2022 4:24 PM EDT Table formatting from the original result was not included. BIVENTRICULAR ICD IMPLANTATION Garden Consultant: Lalit Mcmahon MD Fellow: Fadi Nunez MD [...] lateral branch of the CS in the SWAZI view. This branch was cannulated with a [...] the entire procedure. LEAD AND GENERATOR DATA: Machining Supervisor Model # Serial # Generator [employer] [id number] Atrial Lead [employer] 7841 [id number] RV Lead [employer] 0672 [id number] LV Lead [employer] 4674 [id number] PACE/SENSE DATA: Sensed wave (mV) Threshold (V) [...] (cGycm2) 300 CONCLUSIONS: Successful implantation of a [employer] biventricular ICD for primary prevention and treatment of symptoms related to congestive heart failure. Follow up in EP clinic in 1-2 months. Procedures performed: new ICD system ( cpt 84566-H0); implant LV lead at time of ICD insertion (cpt 96610) I have read, edited and approve of this report: Lalit Mcmahon MD [facility] Cardiac Electrophysiology 07/23/2022 4:22 PM Procedure Note Lalit Mcmahon MD - 07/23/2022 BIVENTRICULAR ICD IMPLANTATION Garden Consultant: Lalit Mcmahon MD Fellow: Fadi Nunez MD [...] appropriate lateralbranch of the CS in the SWAZI view. This branch was cannulated with a [...] in the entireprocedure. LEAD AND GENERATOR DATA: Machining Supervisor Model # Serial # Generator [employer] [id number] Atrial Lead [employer] 7841 [id number] RV Lead [employer] 0672 [id number] LV Lead [employer] 4674 [id number] PACE/SENSE DATA: Sensed wave (mV) Threshold (V) [...] (cGycm2) 300 CONCLUSIONS: Successful implantation of a [employer] biventricular ICD forprimary prevention and treatment of symptoms related to congestive heartfailure. Follow up in EP clinic in 1-2 months. Procedures performed: new ICD system ( cpt 44262-I1); implant LV lead attime of ICD insertion (cpt 89718) I have read, edited and approve of this report: Lalit Mcmahon MD S Cardiac Electrophysiology 07/23/2022 4:22 PM Lalit Mcmahon MD EP PROCEDURE ORDERAB LES * POCT Glucose (07/23/2022 12:54 PM EDT) [employer] Signature Glucose, POC 83 65 - 199 mg/dL [facility] Comment: Supplemental ranges: <140 mg/dL before meals <180 mg/dL all other times of the day Blood 07/23/2022 12:5 4 PM EDT 07/23/2022 12:54 PM EDT Lalit Mcmahon MD POINT OF CARE TEST O RDERABLES Performing Organization Address City/[facility]/ZIP Co de Phone Number [facility] [place] [address] * EKG 12 Lead (07/23/2022 12:33 PM EDT) Ventricular rate 72 BPM MUSE SYSTEM Atrial Rate 72 BPM MUSE SYSTEM P-R Interval 158 ms MUSE SYSTEM QRS Duration 176 ms MUSE SYSTEM Q-T Interval 458 ms MUSE SYSTEM QTC Calculated (Bezet) 501 ms MUSE SYSTEM Calculated P [place] 34 degrees MUSE SYSTEM Calculated R [place] 12 degrees MUSE SYSTEM Calculated T [place] -173 degrees MUSE SYSTEM INTERPRETATION Normal sinus rhythm Left bundle branch block Abnormal ECG No previous ECGs available Confirmed by MD Salome, Lalit ([id number]) on 07/23/2022 1:19:03 PM MUSE SYSTEM 07/23/2022 12:3 3 PM EDT 07/23/2022 1:19 PM EDT Lalit Mcmahon MD ECG ORDERABLES Performing Organization Address [facility]/ZIP Co de Phone Number MUSE SYSTEM * Differential, Automated (07/23/2022 11:55 AM EDT) Neutrophil % 62.6 % [facility] Neutrophil Absolute 4.14 1.70 - 6.10 x10(3)/[facility] LABORATORY Lymph % 27.0 % [facility] LAB[facility] Lymphocytes Abs 1.8 0.9 - 3.2 x10(3)/[facility] LABORATORY Monocyte % 7.3 % [facility] HOSP ITAL LABORATORY Monocyte Abs 0.5 0.3 - 0.9 x10(3)/[facility] LABORATORY Eos % 2.3 % [facility] LAB[facility] Eosinophils Abs 0.2 0.0 - 0.4 x10(3)/[facility] LABORATORY Basophil % 0.6 % [facility] ITAL LABORATORY Baso Absolute 0.0 0.0 - 0.1 x10(3)/[facility] LABORATORY Immature Gran % 0.20 % [facility] Comment: Immature granulocytes(IG's)percentage and absolute count will include metamyelocytes, myelocytes, and promyelocytes. Blood smears from CBCs yielding IG's will be scanned manually for concordance. If this scan disagrees with the automated IG or if promyelocytes are noted, a manual differential will be performed. Immature Gran Absolute 0.01 0.00 - 0.04 x10(3)/[facility] LABORATORY Blood 07/23/2022 11:5 5 AM EDT 07/23/2022 12:07 PM EDT Narrative Resulting Agency Comment Spec In Lab Lalit Mcmahon MD HEMATOLOGY ORDERABLE S [facility] [place] [address] * Hemogram (07/23/2022 11:55 AM EDT) White Blood Cell 6.6 4.0 - 9.5 x10(3)/[facility] LABORATORY Red Blood Cell 4.50 4.00 - 5.21 x10(6)/[facility] LABORATORY Hemoglobin 13.7 11.7 - 15.5 g/dL [facility] Hematocrit 42.5 35.7 - 45.8 % [facility] Mean Cell Volume 94.4 82.6 - 94.4 fL [facility] Mean Cell Hemoglobin 30.4 27.1 - 32.0 pg [facility] Mean Cell Hemoglobin Concentration 32.2 31.7 - 35.0 g/dL [facility] Platelet 193 145 - 357 x10(3)/[facility] LABORATORY RDW Standard Deviation 45.5 37.0 - 46.0 fL [facility] RDW coefficient of variation 13.2 11.5 - 14.1 % [facility] Mean Platelet Volume 9.5 7.6 - 12.9 fL [facility] NRBC% auto 0.0 % [facility] ITAL LABORATORY NRBC Absolute 0.000 0.000 - 0.000 x10(3)/[facility] LABORATORY Blood 07/23/2022 11:5 5 AM EDT 07/23/2022 12:07 PM EDT Narrative Resulting Agency Comment Spec In Lab Lalit Mcmahon MD HEMATOLOGY ORDERABLE S [facility] [place] [place] [address] * (ABNORMAL) BMP w/fasting Glucose (07/23/2022 11:55 AM EDT) Glucose Fasting 110(H) 65 - 99 mg/dL [facility] Comment: ?Fasting* Glucose Interpretive Criteria Normal [...] of Diabetes Mellitus, Position Statement from the [place] [employer]. ??Diabetes Care, Volume 33, Supplement 1, Mar 2009 Blood Urea Nitrogen 23(H) 8 - 18 mg/dL [facility] Creatinine 1.07 0.70 - 1.20 mg/dL [facility] Sodium 141 135 - 145 mmol/L [facility] Potassium 4.8 3.5 - 5.0 mmol/L [facility] Comment: Please note: ??Patients with WBC >100,000 may have falsely elevated Potassium levels. ??For accurate Potassium quantification in these patients send serum separator tube (gold top) for subsequent determinations. ??Contact the Clinical Chemistry Laboratory if there are any questions. Chloride 106 98 - 107 mmol/L [facility] Carbon Dioxide 26 22 - 31 mmol/L [facility] Anion Gap 9 5 - 15 mmol/L [facility] Calcium 9.7 8.5 - 10.5 mg/dL [facility] Est Glomerular Filtration Rate 55(L) >=60 mL/min/1. 73 m?? [facility] Comment: This patient's [...] Mcmahon MD CHEMISTRY ORDERABLES Performing Organization Address [facility] Co de Phone Number [facility] [place] [address] * Prothrombin Time (07/23/2022 11:55 AM EDT) Prothrombin Time 11.7 9.4 - 12.5 sec [facility] International Normalization Ratio 1.0 [facility] Comment: An INR <2.0 indicates adequate [...] MD HEMATOLOGY ORDERABLE S Performing Organization Address City/[facility] Co de Phone Number [facility] [address] documented in this encounter Visit Diagnoses Diagnosis HFrEF (heart failure with reduced ejection fraction)- Primary Left bundle branch block Other left bundle branch block Nonischemic cardiomyopathy Other primary cardiomyopathies Cardiac resynchronization therapy defibrillator (SHACTOR HELPER-D) in place Left bundle branch block [...] Routine documented in this encounter Care Teams Log Sorting Supervisor Relationship Specialty Start Date End Date Lolly Oliveira MD [address] [place] [address] PCP - General 07/17/13 documented as of this encounter
--- OUTSIDE RECORDS SUMMARY | 2023-11-24 11:10 | XMS_ITS | Encounter Summary ---
Author Organization [facility] [place] [address] Care Team Providers Care Supervisor Press Room Name Role Phone Lolly Oliveira MD Primary Care Provider [phone] Encounter Details Date Type Department Care Team (Latest Contact Info) Description 04/21/2023 10:00 AM EST - 04/21/2023 11:59 PM EST Hospital Encounter [place] [address] Discharge Disposition: Home Social History Tobacco Use [...] with spacer fluticasone propionate (Flonase) 50 mcg/actuation [place], Suspension 1 spray by Each Nare route [...] AM EST Hospital Encounter Non-[place] [address] Arrived documented as of this [...] filedocumented in this encounter Care Teams Supervisor Press Room Relationship Specialty Start Date End Date Lolly Oliveira MD [address] [place] [address] PCP - General 07/17/13 documented as of this encounter
--- OUTSIDE RECORDS SUMMARY | 2023-11-24 11:10 | XMS_ITS | Encounter Summary ---
Author Organization [facility] [place] [address] Care Team Providers Care Customer Management Specialist Name Role Phone Lolly Oliveira MD Primary Care Provider [phone] Reason for Visit * Reason Comments Follow-up Encounter Details Date Type Department Care Team (Late st Contact Info) Description 07/02/2022 8:00 AM EDT Office Visit Dermatology at [address] [phone] Clay Ramírez MD [address] [facility] [place] [address] Psoriasis, guttate Social History Tobacco Use Types [...] [facility] Hospital Encounter Non[place] [phone] Arrived documented as of this encounter Visit Diagnoses Diagnosis Psoriasis, guttate Other psoriasis documented in this encounter Care Teams Customer Management Specialist Relationship Specialty Start Date End Date Lolly Oliveira MD [address] [place] [address] PCP - General 07/17/13 documented as of this encounter
--- OUTSIDE RECORDS SUMMARY | 2023-11-24 11:10 | XMS_ITS | Clinical Summary ---
Author Organization [facility] [place] [address] Care Team Providers Care Electric Lift Truck Driver Name Role Phone Lolly Oliveira MD Primary Care Provider [phone] Allergies Active Allergy Reactions Criticality Noted Date [...] spacer Active fluticasone propionate (Flonase) 50 mcg/actuation [place], Suspension 1 spray by Each Nare route [...] PM EDT Hospital Encounter Non-[place] [address] Discharge Disposition: Home from Last [...] EST Hospital Encounter Non-[place] [address] Arrived Health Maintenance Due Date Last Done [...] series) 11/07/2023 Medical Devices Implanted Type Area Lime Boiler Device Identifier Shelf Expiration Date Model / Serial / Lot Bsx: [id number]: [id number]/18/2 023 Implanted: by Lalit Mcmahon MD (Quantity not on file) Defibrillator Chest Wall [employer] [id number] / [id number] / Bsx: [id number]: [id number]/18/2 023 Implanted: by Lalit Mcmahon MD (Quantity not on file) Lead Heart [employer] 4674 / [id number] / Bsx: [id number]: [id number] Implanted: by Lalit Mcmahon MD (Quantity not on file) Lead Heart [employer] 7841 / [id number] / Bsx: [id number]: [id number]/18/2 023 Implanted: by Lalit Mcmahon MD (Quantity not on file) Lead Heart [employer] 0672 / [id number] / Advance Directives * Attempt Cardiopulmonary Resuscitation - Inpatient (Latest Code Status on File) Date Activated Date Inactivated Comments 07/23/2022 4:30 PM 07/24/2022 12:32 PM Question Answer Comments Code Status decision made by: Patient Care Teams Electric Lift Truck Driver Relationship Specialty Start Date End Date Lolly Oliveira MD [address] [place] [address] PCP - General 07/17/13
--- OUTSIDE RECORDS SUMMARY | 2023-11-24 11:10 | XMS_ITS | Encounter Summary ---
Author Organization [facility] [place] [address] Care Team Providers Care Compatibility Test Engineer Name Role Phone Lolly Oliveira MD Primary Care Provider [phone] Reason for Visit * Reason Comments Psoriasis Encounter Details Date Type Department Care Team (Late st Contact Info) Description 04/09/2022 1:45 PM EST Office Visit Dermatology at [address] [address] Clay Ramírez MD [address] [facility] [place] [address] Psoriasis, guttate Social History Tobacco Use Types [...] Hospital Encounter Non-[place] [address] Arrived documented as of this encounter Visit Diagnoses Diagnosis Psoriasis, guttate Other psoriasis documented in this encounter Care Teams Compatibility Test Engineer Relationship Specialty Start Date End Date Lolly Oliveira MD [address] [place] [address] PCP - General 07/17/13 documented as of this encounter
--- OUTSIDE RECORDS SUMMARY | 2023-11-24 11:10 | XMS_ITS | Encounter Summary ---
Author Organization [facility] [place] [address] Care Team Providers Care Sales Service Technician Name Role Phone Lolly Oliveira MD Primary Care Provider [phone] Encounter Details Date Type Department Care Team (Latest Contact Info) Description 07/26/2013 9:45 AM EDT - 07/26/2013 11:59 PM EDT Hospital [place] [address] Mammographic microcalcification Social History Tobacco Use Types [...] AM EST Hospital Encounter Non-[place] [address] Arrived documented as of this encounter Procedures [...] documented in this encounter Care Teams Sales Service Technician Relationship Specialty Start Date End Date Lolly Oliveira MD [address] [place] [address] PCP - General 07/17/13 documented as of this encounter
--- OUTSIDE RECORDS SUMMARY | 2023-11-24 11:10 | XMS_ITS | Encounter Summary ---
[place] [address] Care Team Providers Care Vp Software Engineering Name Role Phone Lolly Oliveira MD Primary Care Provider [phone] Encounter Details Date Type Department Care Team [...] on filedocumented in this encounter Care Teams Vp Software Engineering Relationship Specialty Start Date End Date Lolly Oliveira MD [address] [place] [address] PCP - General 07/17/13 documented as of this encounter
--- OUTSIDE RECORDS SUMMARY | 2023-11-24 11:10 | XMS_ITS | Encounter Summary ---
Author Organization [facility] [place] [address] Care Team Providers Care Legger Press Operator Name Role Phone Lolly Oliveira MD Primary Care Provider [phone] Encounter Details Date Type Department Care Team (Late st Contact Info) Description 11/16/2022 Telephone Cardiology at [address] [phone] Luna Rousseau, RN Social History Tobacco Use [...] 118/57 at [facility] at [facility]. Pt is going twice a week [...] [facility] Hospital Encounter Non-[place] [address] Arrived documented as of this encounter Visit Diagnoses Not on filedocumented in this encounter Care Teams Legger Press Operator Relationship Specialty Start Date End Date Lolly Oliveira MD [address] [place] [address] PCP - General 07/17/13 documented as of this encounter
--- OUTSIDE RECORDS SUMMARY | 2023-11-24 11:10 | XMS_ITS | Encounter Summary ---
Author Organization [place] [address] Care Team Providers Care Cylinder Press Operator Name Role Phone Lolly Oliveira MD Primary Care Provider [phone] Encounter Details Date Type Department Care Team (Late st Contact Info) Description 05/18/2023 Telephone Dermatology at [address] [address] Nora Meredith LPN Social History [...] [facility] Hospital Encounter Non-Invasive [place] [address] Arrived documented as of this encounter Visit Diagnoses Not on filedocumented in this encounter Care Teams Cylinder Press Operator Relationship Specialty Start Date End Date Lolly Oliveira MD [address] [place] [address] PCP - General 07/17/13 documented as of this encounter
--- OUTSIDE RECORDS SUMMARY | 2023-11-24 11:10 | XMS_ITS | Encounter Summary ---
Author Organization [facility] Address [facility] [place] [address] Care Team Providers Care Photoengraving Sketch Maker Name Role Phone Lolly Oliveira MD Primary Care Provider [phone] Reason for Referral * Diagnostic Test (Routine) - Closed Specialty Diagnoses / Procedures Referred By Contkoki t Referred To Contact Cardiology Diagnoses Nonischemic cardiomyopathy Biventricular ICD (implantable cardioverter-defibrillator) in place Procedures Echocardiogram Transthoracic Lalit Mcmahon MD [facility] [place] [address] Referral ID Status Reason Start Date Expiration Date V isits Requested Visits Authorized [id number] Closed Specialty Service Requested 03/15/2023 09/11/2023 1 1 Encounter Details Date Type Department Care Team (Late st Contact Info) Description 03/15/2023 Orders Only Cardiology at [address] [address] Lalit Mcmahon MD [facility] [address] Nonischemic cardiomyopathy; Biventricular ICD (implantable cardioverter-defibrill ator) in place Social History Tobacco Use Types Packs/Day Years Used Date Smoking Tobacco: Never Alcohol Use Standard Drinks/Week Comments Not Currently 0 (1 standard drink = 0.6 oz pur e alcohol) [facility] Inpatient Questions Answer Date Recorded [...] AM EST Hospital Encounter [place] [address] Arrived Scheduled Orders Name Type Priority Associated Diagnoses Order Schedule Echocardiogram Transthoracic Echocardiography Routine Nonischemic cardiomyopathy Biventricular ICD (implantable cardioverter-defibr illator) in place Expected: 05/05/2023, Expires: 11/04/2023 documented as of this encounter Visit Diagnoses Diagnosis Nonischemic cardiomyopathy Other primary cardiomyopathies Biventricular ICD (implantable cardioverter-defibrillator) in place documented in this encounter Care Teams Photoengraving Sketch Maker Relationship Specialty Start Date End Date Lolly Oliveira MD [address] [place] [address] PCP - General 07/17/13 documented as of this encounter
--- OUTSIDE RECORDS SUMMARY | 2023-11-24 11:10 | XMS_ITS | Encounter Summary ---
[place] [address] Care Team Providers Care Government Affairs Manager Name Role Phone Lolly Oliveira MD Primary Care Provider [phone] Encounter Details Date Type Department Care Team [...] on filedocumented in this encounter Care Teams Government Affairs Manager Relationship Specialty Start Date End Date Lolly Oliveira MD [address] [place] [address] PCP - General 07/17/13 documented as of this encounter
--- OUTSIDE RECORDS SUMMARY | 2023-11-24 11:10 | XMS_ITS | Encounter Summary ---
Author Organization [facility] [place] [address] Care Team Providers Care Field Support Engineer Name Role Phone Lolly Oliveira MD Primary Care Provider Reason for Visit * Reason Onset Date Comments Post Procedure Call 07/30/2022 Encounter Details Date Type Department Care Team (Late st Contact Info) Description 07/30/2022 Notes Only Cardiology at [address] [phone] Rosenda Sutton, RN Post Procedure Call Social History Tobacco Use Types Packs/Day Years Used Date Smoking Tobacco: Never Alcohol Use Standard Drinks/Week Comments Not Currently 0 (1 standard drink = 0.6 oz pur e alcohol) [facility] Inpatient Questions Answer Date [...] 07/30/2022 9:59 AM EDTSummary: Post Procedure Call: CAREER GUIDANCE COUNSELOR implant EP RN Post-Procedure Note: Date of Follow Up Call: 07/30/2022 Spoke With: Patient Procedure Type (choose all that apply): ICD Performing MIRLANDE Mcmahon Date of Procedure: 07/23/2022 Date of Discharge: 07/24/2022 Follow Up EP Visit Scheduled?: No No Follow Up Visit Reason: Follow up outside Outside Location: [facility] Date of Non EP Visit: 08/12/2022 [...] Note: Follow-up Recommendations for Providers: - s/p CAREER GUIDANCE COUNSELOR-D implant - post implant QRS 130 ms [...] AM [facility] Encounter Non-[place] [address] Arrived documented as of this encounter Visit Diagnoses Not on filedocumented in this encounter Care Teams Field Support Engineer Relationship Specialty Start Date End Date Lolly Oliveira MD [address] [place] [address] PCP - General 07/17/13 documented as of this encounter
--- OUTSIDE RECORDS SUMMARY | 2023-11-24 11:10 | XMS_ITS | Encounter Summary ---
Author Organization [facility] Address [facility] [place] [address] Care Team Providers Care Campus Ambassador Name Role Phone Lolly Oliveira MD Primary Care Provider [phone] Reason for Visit * Auth/Cert (Routine) Specialty Diagnoses / Procedures Referred By Contac t Referred To Contact Diagnoses Left bundle-branch block, unspecified Other cardiomyopathies Left bundle branch block [I44.7]Nonischemic cardiomyopathy [I42.8] Procedures PRG CATH PLMT LEFT HEART CATH & ARTS W/INJ & ANGIO IMG S&I ELECTROPHYSIOLOGY PROCEDURE Lalit Mcmahon MD [facility] [place] [address] [facility] Referral ID Status Reason Start Date Expiration Date Visits Re quested Visits Authorized [id number] 1 1 Encounter Details Date Type Department Care Team (Late st Contact Info) Description 07/23/2022 1:08 PM EDT Anesthesia Event [place] [address] Monae Gonzalez MD [facility] [place] [address] Maria Elena Snyder CRNA [facility] [place] [address] Anesthesia Record Procedure Summary Procedure Name Responsible [...] 1307; median cubital vein (antecubital fossa), right; qqtg-rjd-fqlbbc catheter system; Anatomical Landmarks; 20 gauge; 07/24/22; [...] 1343; metacarpal vein (top of hand), left; woyd-blt-awugrd catheter system; Anatomical Landmarks; US Not Used; [...] Procedure Summary Date: 07/23/22 Room / Location: [facility] A-LAB ROOM 3 / [facility] EP LABS Anesthesia Start: 1308 Anesthesia Stop: 1633 Procedure: ELECTROPHYSIOLOGY PROCEDURE (Left) Diagnosis: Left bundle branch block Nonischemic cardiomyopathy (Left bundle branch block [I44.7]Nonischemic cardiomyopathy [I42.8]) Providers: Lalit Mcmahon MD Responsible Provider: Monae Gonzalez MD Anesthesia Type: general ASA Status: 4 All Anesthesia Providers: Anesthesiologist: Monae Gonzalez MD; Dominique Sen MD INSPECTOR FINISHING: Maria Elena Snyder CRNA Vitals Value Taken Time BP 131/46 07/23/22 1700 Temp 36.7 ??C (98.1 ??F) 07/23/22 1627 Pulse 67 07/23/22 1703 Resp 14 07/23/22 1703 SpO2 98 % 07/23/22 1703 Pain Level Vitals shown include unvalidated device data. Patient Location: PACU[facility] Level of Consciousness: Conscious but Sleepy [...] and Nonischemic CM (EF 15-20%)who presents for RN LONG TERM CARE-D. No prior anesthetic records. Pt states that [...] daughter/son and patient who. Plan discussed with INSPECTOR FINISHING. Anesthesia Screening documented in this encounter Plan of Treatment Upcoming Encounters Date Type Department Care Team (Late st Contact Info) Description 01/16/2024 10:00 AM [facility] Hospital Encounter [place] [address] Arrived documented as of this [...] mg documented in this encounter Care Teams Campus Ambassador Relationship Specialty Start Date End Date Lolly Oliveira MD [address] [place] [address] PCP - General 07/17/13 documented as of this encounter
--- OUTSIDE RECORDS SUMMARY | 2023-11-24 11:10 | XMS_ITS | Encounter Summary ---
Author Organization [facility] [address] Care Team Providers Care Mailing Manager Name Role Phone Lolly Oliveira MD Primary Care Provider [phone] Reason for Visit * Reason Comments Follow-up Encounter Details Date Type Department Care Team (Late st Contact Info) Description 05/21/2022 8:00 AM EDT Office Visit Dermatology at [address] [phone] Clay Ramírez MD [address] [facility], [place] [address] Psoriasis, guttate Social History Tobacco Use Types [...] AM [facility] Encounter Non[place] [address] Arrived documented as of this encounter Visit Diagnoses Diagnosis Psoriasis, guttate Other psoriasis documented in this encounter Care Teams Mailing Manager Relationship Specialty Start Date End Date Lolly Oliveira MD [address] [place] [address] PCP - General 07/17/13 documented as of this encounter
--- OUTSIDE RECORDS SUMMARY | 2023-11-24 11:10 | XMS_ITS | Encounter Summary ---
Author Organization [facility] Address [facility] [place] [address] Care Team Providers Care Chief Compressor Station Engineer Name Role Phone Lolly Oliveira MD Primary Care Provider [phone] Encounter Details Date Type Department Care Team (Late st Contact Info) Description 07/16/2022 Telephone Cardiology at [address] [phone] Lalit Mcmahon MD [facility] [address] Social History Tobacco Use Types Packs/Day Years [...] her nonischemic cardiomyopathy. She is scheduled for SCIENCE ANALYST-D implantation next week and looks forward to the procedure. We will see each other next week. Lalit Mcmahon MD [facility] Cardiac Electrophysiology 07/16/2022 8:52 AM documented in this encounter Plan of Treatment Upcoming Encounters Date Type Department Care Team (Late st Contact Info) Description 01/16/2024 10:00 AM EST Hospital Encounter Non-[place] [address] Arrived documented as of this encounter Visit Diagnoses Not on filedocumented in this encounter Care Teams Chief Compressor Station Engineer Relationship Specialty Start Date End Date Lolly Oliveira MD [address] [place] [address] PCP - General 07/17/13 documented as of this encounter
--- OUTSIDE RECORDS SUMMARY | 2023-11-24 11:10 | XMS_ITS | Encounter Summary ---
Author Organization [facility] Address [facility] [place] [address] Care Team Providers Care Cloth Printing Back Tender Name Role Phone Lolly Oliveira MD Primary Care Provider [phone] Encounter Details Date Type Department Care Team (Late st Contact Info) Description 05/03/2023 Telephone Cardiology at [address] [phone] Lalit Mcmahon MD [facility] [place] [address] Social History Tobacco Use Types Packs/Day Years Used Date Smoking Tobacco: Never Alcohol Use Standard Drinks/Week Comments Not Currently 0 (1 standard drink = 0.6 oz pur e alcohol) [facility] Inpatient Questions Answer Date Recorded Does [...] AM EST Hospital Encounter Non-Invasive [place] [address] Arrived documented as of this encounter Visit Diagnoses Not on filedocumented in this encounter Care Teams Cloth Printing Back Tender Relationship Specialty Start Date End Date Lolly Oliveira MD [address] [place] [address] PCP - General 07/17/13 documented as of this encounter
--- OUTSIDE RECORDS SUMMARY | 2023-11-24 11:10 | XMS_ITS | Encounter Summary ---
Author Organization [facility] [place] [address] Care Team Providers Care Rice Drier Name Role Phone Lolly Oliveira MD Primary Care Provider [phone] Encounter Details Date Type Department Care Team (Late st Contact Info) Description 04/01/2021 3:30 PM EST Office Visit Dermatology at [address] [phone] Clay Ramírez MD [address] [place] [address] Psoriasis, guttate Social History Tobacco Use Types [...] AM EST Hospital Encounter Non-Invasive [place] [address] Arrived documented as of this encounter Visit Diagnoses Diagnosis Psoriasis, guttate Other psoriasis documented in this encounter Care Teams Rice Drier Relationship Specialty Start Date End Date Lolly Oliveira MD [address] [place] [address] PCP - General 07/17/13 documented as of this encounter
--- OUTSIDE RECORDS SUMMARY | 2023-11-24 11:10 | XMS_ITS | Encounter Summary ---
[place] [address] Care Team Providers Care Ophthalmic Technologist Name Role Phone Lolly Oliveira MD Primary Care Provider [phone] Encounter Details Date Type Department Care Team (Late st Contact Info) Description 04/09/2022 Refill Dermatology at [address] [address] Nora Meredith, SUPERVISOR COLD ROLLING Social History Tobacco Use Types Packs/Day Years [...] [facility] Hospital Encounter [place] [address] Arrived documented as of this encounter Visit Diagnoses Not on filedocumented in this encounter Care Teams Ophthalmic Technologist Relationship Specialty Start Date End Date Lolly Oliveira MD [address] [place] [address] PCP - General 07/17/13 documented as of this encounter
--- OUTSIDE RECORDS SUMMARY | 2023-11-24 11:10 | XMS_ITS | Encounter Summary ---
Author Organization [facility] [place] [address] Care Team Providers Care Hooker On Name Role Phone Lolly Oliveira MD Primary Care Provider [phone] Encounter Details Date Type Department Care Team (Latest Contact Info) Description 10/18/2023 10:00 AM EDT - 10/18/2023 11:59 PM EDT Hospital Encounter [place] [address] Discharge Disposition: Home Social History Tobacco Use [...] with spacer fluticasone propionate (Flonase) 50 mcg/actuation [place], Suspension 1 spray by Each Nare route daily as needed. documented as of this encounter Plan of Treatment Upcoming Encounters Date Type Department Care Team (Late st Contact Info) Description 01/16/2024 10:00 AM EST Hospital Encounter [place] [address] Arrived documented as of this encounter Procedures [...] on filedocumented in this encounter Care Teams Hooker On Relationship Specialty Start Date End Date Lolly Oliveira MD [address] [place] [address] PCP - General 07/17/13 documented as of this encounter
--- OUTSIDE RECORDS SUMMARY | 2023-11-24 11:10 | XMS_ITS | Encounter Summary ---
Author Organization [place] [address] Care Team Providers Care Rug Setter [place] Name Role Phone Lolly Oliveira MD Primary Care Provider [phone] Encounter Details Date Type Department Care Team (Late st Contact Info) Description 10/09/2021 Telephone Dermatology at [address] [address] Nora Meredith LPN Social History [facility] [address] Arrived documented as of this encounter Visit Diagnoses Not on filedocumented in this encounter Care Teams Rug Setter [place] Relationship Specialty Start Date End Date Lolly Oliveira MD [address] [place] [address] PCP - General 07/17/13 documented as of this encounter
--- OUTSIDE RECORDS SUMMARY | 2023-11-24 11:10 | XMS_ITS | Encounter Summary ---
Author Organization [facility] [place] [address] Care Team Providers Care Produce Department Manager Name Role Phone Lolly Oliveira MD Primary Care Provider [phone] Reason for Visit * Diagnostic Test (Routine) - Closed Specialty Diagnoses / Procedures Referred By Contac t Referred To Contact Radiology Diagnoses Left bundle branch block Nonischemic cardiomyopathy Procedures MRI Cardiac Morphology Function With Flow Velocity Quantification wwo Contrast MRI Cardiac Morphology Function wwo Contrast Lalit Mcmahon MD [facility] [place] [address] [facility] [place] [address] Referral ID Status Reason Start Date Expiration Date V isits Requested Visits Authorized [id number] Closed Specialty Service Requested 05/06/2022 11/07/2023 2 1 Encounter Details Date Type Department Care Team (Latest Contact Info) Description 07/14/2022 9:09 AM EDT - 07/14/2022 11:59 PM EDT Hospital [place] [address] Lalit Mcmahon MD [facility] [place] [address] Discharge Disposition: Home Social History Tobacco Use [...] with spacer fluticasone propionate (Flonase) 50 mcg/actuation [place], Suspension 1 spray by Each Nare route [...] EST Hospital Encounter Non-Invasive [place] [address] Arrived documented as of this [...] mLs documented in this encounter Care Teams Produce Department Manager Relationship Specialty Start Date End Date Lolly Oliveira MD [address] [place] [address] PCP - General 07/17/13 documented as of this encounter
--- OUTSIDE RECORDS SUMMARY | 2023-11-24 11:10 | XMS_ITS | Encounter Summary ---
Author Organization [facility] [place] [address] Care Team Providers Care Creping Machine Operator Name Role Phone Lolly Oliveira MD Primary Care Provider [phone] Reason for Visit * Reason Comments Skin Check Encounter Details Date Type Department Care Team (Late st Contact Info) Description 11/23/2014 10:00 AM EDT Office Visit Dermatology at [address] [phone] Clay Ramírez MD [address] [facility], [place] [address] Dermatofibroma; Nevus; Solar lentigo Discharge Disposition: Home [...] [facility] Hospital Encounter Non-[place] [address] Arrived documented as of this encounter Visit Diagnoses Diagnosis Dermatofibroma Benign neoplasm of skin, site unspecified Nevus Benign neoplasm of skin, site unspecified Solar lentigo Other dyschromia documented in this encounter Care Teams Creping Machine Operator Relationship Specialty Start Date End Date Lolly Oliveira MD [address] [place] [address] PCP - General 07/17/13 documented as of this encounter
--- OUTSIDE RECORDS SUMMARY | 2023-11-24 11:10 | XMS_ITS | Encounter Summary ---
Author Organization [facility] Address [facility] [place] [address] Care Team Providers Care Textile Technical Officer Name Role Phone Lolly Oliveira MD Primary Care Provider [phone] Reason for Visit * Auth/Cert (Routine) Specialty Diagnoses / Procedures Referred By Contac t Referred To Contact Diagnoses Left bundle-branch block, unspecified Other cardiomyopathies Left bundle branch block [I44.7]Nonischemic cardiomyopathy [I42.8] Procedures PRG CATH PLMT LEFT HEART CATH & ARTS W/INJ & ANGIO IMG S&I ELECTROPHYSIOLOGY PROCEDURE Lalit Mcmahon MD [facility] [place] [address] [facility] Referral ID Status Reason Start Date Expiration Date Visits Re quested Visits Authorized [id number] 1 1 Encounter Details Date Type Department Care Team (Latest Contact Info) Description 07/23/2022 11:39 AM EDT - 07/24/2022 10:23 AM EDT Hospital [place] [id number] Lalit Mcmahon MD [facility] [place] [address] Left bundle branch block; Nonischemic cardiomyopathy; Cardiac resynchronization therapy defibrillator (CONDUCTOR ORCHESTRA-D) in place Discharge Disposition: Home Social History [...] Luna Mott Patient Age: 71 y.o. Language: Turkish Race: White Ethnicity: Not nor Admit date: 07/23/2022 Discharge date and time: 07/24/22 Attending Physician: Lalit Mcmahon MD Discharge Physician: Lalit Mcmahon MD Follow-up Recommendations for Providers: - s/p CONDUCTOR ORCHESTRA-D implant - post implant QRS 130 ms [...] Nevus ??? Solar lentigo Operations/Major Procedures: 07/23/22: [facility] CONDUCTOR ORCHESTRA-D implant History of Presentation: 71 y.o. female with a history of HFrEF, LBBB, QRS >150, NYHA II who is POD#1 of CONDUCTOR ORCHESTRA-D implant ([employer]). Hospital Course: Elective admission for CONDUCTOR ORCHESTRA-D implant Admitted post-implant for pain management, telemetry [...] (heart failure with reduced ejection fraction) [I50.20] CONDUCTOR ORCHESTRA-D implant Admission Condition: good Indication for Admission: [...] g Refills: 3 fluticasone propionate 50 mcg/actuation [place], Suspension Commonly known as: Flonase 1 spray [...] F. The office scheduling phone number is [phone]. ARM MOVEMENT RESTRICTIONS POST-IMPLANT - Do not [...] please call the Cardiac ElectrophysiologyTriage Nurse at [phone], option 3. General Instructions None Discharge References/Attachments [...] F. The office scheduling phone number is [phone]. ARM MOVEMENT RESTRICTIONS POST-IMPLANT - Do not [...] please call the Cardiac ElectrophysiologyTriage Nurse at [phone], option 3. documented in this encounter Medications [...] with spacer fluticasone propionate (Flonase) 50 mcg/actuation [place], Suspension 1 spray by Each Nare route [...] Cardiac Electrophysiology Post-Implant Device Interrogation Luna Mott [id number] 07/24/2022 History: Luna Mott is a 71 y.o. female with a history of HFrEF, LBBB, QRS >150, NYHA II who is POD#1 of CONDUCTOR ORCHESTRA-D implant ([employer]). Overall feels well this morning. Ready [...] WOB Neuro- A&Ox3 Device Interrogation: Data ?? Contract Implementation Analyst Model # Serial # Generator [employer] [id number] Atrial Lead [employer] [id number] RV Lead [employer] [id number] LV Lead [employer] [id number] ?? Diagnostics Pacing Mode: DDD 60-130 Underlying Rhythm: [place] Atrial Episodes: None Ventricular Episodes: None FINAL PROGRAMMING: Pacing: Mode Lower rate (ppm) Upper rate (ppm) ?? DDD 60 130 VF: Rate (bpm) #Antitachycardia pacing First shock energy (J) ?? 200 Quick convert 41 VT: 170 Monitor only Monitor only ? Battery and Leads Impedances (ohms) Sensing (mV) Thresholds HV RA RV LV RA RV LV RA RV LV 73 256 241 4791 (LVa) 7.7 13.1 >25 0.4V @ 0.4 ms 0.4V @ 0.4 ms 0.5 V @ 1.0 ms POD#1 CXR: All leads in nominal positioning Impression: 71 y.o. female who is s/p CONDUCTOR ORCHESTRA-D implant for LBBB, NYHA II, HFrEF. - [...] [facility]) Fadi Nunez MD 07/24/2022 Pager: [phone] I met with the patient today and [...] agreement. ? Dr. Lalit Mcmahon, electrophysiology attending ([id number]) * Zaria Wright RN - 07/23/2022 8:28 [...] HF, QRS > 150 ms presents for CONDUCTOR ORCHESTRA-D placement. ROS: Denies recent fevers or chills [...] 0.9) flush 5 mL 5 mL Intravenous [id number] ramos MD ??? sodium chloride 0.9 % [...] HF, QRS > 150 ms presents for CONDUCTOR ORCHESTRA-D placement. Backup would be LBBAP lead. Antibiotics: cefazolin Rationales for, intended benefits and potential risk of planned procedures reviewed. The patient indicated understanding and agreement with the plan. Informed consent signed. Procedure checklist completed. Fadi Nunez MD Cardiac Electrophysiology Fellow [facility] Pager [phone] 07/23/2022 I met with the patient today [...] agreement. ? Dr. Lalit Mcmahon, electrophysiology attending ([id number]) documented in this encounter Miscellaneous Notes * Brief Op Note - Lalit Mcmahon MD - 07/23/2022 4:04 PM EDT Brief Operative Note Patient Name: Luna Mott : [id number] MR#: [id number] Case Date: 07/23/2022 Surgeon: Surgeon(s) and Role: [...] AM EST Hospital Encounter Non-[place] [address] Arrived Scheduled Orders Name Type Priority Associated Diagnoses Orde r Schedule EKG 12 Lead ECG Routine Cardiac resynchronization therapy defibrillator (CONDUCTOR ORCHESTRA-D) in place One Time for 1 Occurrences [...] (Bezet) 522 ms MUSE SYSTEM Calculated R [place] 78 degrees MUSE SYSTEM Calculated T [place] -71 degrees MUSE SYSTEM INTERPRETATION AV dual-paced [...] have questions please contact the health career counselor that requested your imaging first. ? Narrative [...] who have questions please contactthe health career counselor that requested your imaging first. Lalit Mcmahon MD IMG DX ORDERABLES * ELECTROPHYSIOLOGY PROCEDURE (07/23/2022 1:11 PM EDT) Anatomical Region Laterality Modality Other Narrative 07/23/2022 4:24 PM EDT Table formatting from the original result was not included. BIVENTRICULAR ICD IMPLANTATION Motor Vehicle License Clerk: Lalit Mcmahon MD Fellow: Fadi Nunez MD [...] lateral branch of the CS in the [place] view. This branch was cannulated with a [...] the entire procedure. LEAD AND GENERATOR DATA: Contract Implementation Analyst Model # Serial # Generator [employer] [id number] Atrial Lead [employer] [id number] RV Lead [employer] 0672 [id number] LV Lead [employer] [id number] PACE/SENSE DATA: Sensed wave (mV) Threshold (V) [...] (cGycm2) 300 CONCLUSIONS: Successful implantation of a [employer] biventricular ICD for primary prevention and treatment of symptoms related to congestive heart failure. Follow up in EP clinic in 1-2 months. Procedures performed: new ICD system ( cpt 22780-T2); implant LV lead at time of ICD insertion (cpt 94238) I have read, edited and approve of this report: Lalit Mcmahon MD S Cardiac Electrophysiology 07/23/2022 4:22 PM Procedure Note Lalit Mcmahon MD - 07/23/2022 BIVENTRICULAR ICD IMPLANTATION Motor Vehicle License Clerk: Lalit Mcmahon MD Fellow: Fadi Nunez MD [...] appropriate lateralbranch of the CS in the [place] view. This branch was cannulated with a [...] in the entireprocedure. LEAD AND GENERATOR DATA: Contract Implementation Analyst Model # Serial # Generator [employer] [id number] Atrial Lead [employer] [id number] [id number] RV Lead [employer] 0672 [id number] LV Lead [employer] [id number] PACE/SENSE DATA: Sensed wave (mV) Threshold (V) [...] (cGycm2) 300 CONCLUSIONS: Successful implantation of a [employer] biventricular ICD forprimary prevention and treatment of symptoms related to congestive heartfailure. Follow up in EP clinic in 1-2 months. Procedures performed: new ICD system ( cpt 15180-F6); implant LV lead attime of ICD insertion (cpt 95680) I have read, edited and approve of this report: Lalit Mcmahon MD [facility] Cardiac Electrophysiology 07/23/2022 4:22 PM Lalit Mcmahon MD EP PROCEDURE ORDERAB LES * POCT Glucose (07/23/2022 12:54 PM EDT) Glucose, POC 83 65 - 199 mg/dL [facility] Comment: Supplemental ranges: <140 mg/dL before meals <180 mg/dL all other times of the day Blood 07/23/2022 12:5 4 PM EDT 07/23/2022 12:54 PM EDT Lalit Mcmahon MD POINT OF CARE TEST O RDERABLES Performing Organization Address [facility] Co de Phone Number [facility] [place] [address] * EKG 12 Lead (07/23/2022 12:33 PM EDT) Ventricular rate 72 BPM MUSE SYSTEM Atrial Rate 72 BPM MUSE SYSTEM P-R Interval 158 ms MUSE SYSTEM QRS Duration 176 ms MUSE SYSTEM Q-T Interval 458 ms MUSE SYSTEM QTC Calculated (Bezet) 501 ms MUSE SYSTEM Calculated P [place] 34 degrees MUSE SYSTEM Calculated R [place] 12 degrees MUSE SYSTEM Calculated T [place] -173 degrees MUSE SYSTEM INTERPRETATION Normal sinus rhythm Left bundle branch block Abnormal ECG No previous ECGs available Confirmed by MD Salome, Lalit ([id number]) on 07/23/2022 1:19:03 PM MUSE SYSTEM 07/23/2022 12:3 3 PM EDT 07/23/2022 1:19 PM EDT Lalit Mcmahon MD ECG ORDERABLES Performing Organization Address [facility] de Phone Number MUSE SYSTEM * Differential, Automated (07/23/2022 11:55 AM EDT) Neutrophil % 62.6 % [facility] Neutrophil Absolute 4.14 1.70 - 6.10 x10(3)/[facility] LAB[facility]AT[facility] Lymph % 27.0 % [facility] Lymphocytes Abs 1.8 0.9 - 3.2 x10(3)/[facility] LAB[facility] Monocyte % 7.3 % [facility] Monocyte Abs 0.5 0.3 - 0.9 x10(3)/[facility] Eos % 2.3 % [facility] Eosinophils Abs 0.2 0.0 - 0.4 x10(3)/[facility] LABORATORY Basophil % 0.6 % [facility] IT[facility] LABOR[facility] Baso Absolute 0.0 0.0 - 0.1 x10(3)/[facility] LAB[facility] Immature Gran % 0.20 % [facility] Comment: Immature granulocytes(IG's)percentage and absolute [...] Lab Lalit Mcmahon MD HEMATOLOGY ORDERABLE S [facility] [place] [address] * Hemogram (07/23/2022 11:55 AM EDT) White Blood Cell 6.6 4.0 - 9.5 x10(3)/[facility] LAB[facility] Red Blood Cell 4.50 4.00 - 5.21 x10(6)/[facility] Hemoglobin 13.7 11.7 - 15.5 g/dL [facility] Hematocrit 42.5 35.7 - 45.8 % [facility] Mean Cell Volume 94.4 82.6 - 94.4 fL [facility] Mean Cell Hemoglobin 30.4 27.1 - 32.0 pg [facility] Mean Cell Hemoglobin Concentration 32.2 31.7 - 35.0 g/dL [facility] Platelet 193 145 - 357 x10(3)/[facility] RDW Standard Deviation 45.5 37.0 - 46.0 fL [facility] RDW coefficient of variation 13.2 11.5 - 14.1 % [facility] Mean Platelet Volume 9.5 7.6 - 12.9 fL [facility] NRBC% auto 0.0 % [facility] NRBC Absolute 0.000 0.000 - 0.000 x10(3)/mcL [facility] Blood 07/23/2022 11:5 5 AM EDT 07/23/2022 12:07 PM EDT Narrative Resulting Agency Comment Spec In Lab Lalit Mcmahon MD HEMATOLOGY ORDERABLE S [facility] [address] [place] [address] * (ABNORMAL) BMP w/fasting Glucose (07/23/2022 11:55 AM EDT) Glucose Fasting 110(H) 65 - 99 mg/dL [facility] Comment: ?Fasting* Glucose Interpretive Criteria [...] of Diabetes Mellitus, Position Statement from the [place] [employer]. ??Diabetes Care, Volume 33, Supplement 1, Mar 2009 Blood Urea Nitrogen 23(H) 8 - 18 mg/dL [facility] Creatinine 1.07 0.70 - 1.20 mg/dL [facility] Sodium 141 135 - 145 mmol/L [facility] Potassium 4.8 3.5 - 5.0 mmol/L [facility] Comment: Please note: ??Patients with WBC >100,000 may have falsely elevated Potassium levels. ??For accurate Potassium quantification in these patients send serum separator tube (gold top) for subsequent determinations. ??Contact the Clinical Chemistry Laboratory if there are any questions. Chloride 106 98 - 107 mmol/L [facility] Carbon Dioxide 26 22 - 31 mmol/L [facility] Anion Gap 9 5 - 15 mmol/L [facility] Calcium 9.7 8.5 - 10.5 mg/dL [facility] Est Glomerular Filtration Rate 55(L) >=60 mL/min/1. 73 m?? [facility] Comment: This patient's estimated GFR [...] CHEMISTRY ORDERABLES Performing Organization Address [facility] Co de Phone Number [facility] [place] [address] * Prothrombin Time (07/23/2022 11:55 AM EDT) Prothrombin Time 11.7 9.4 - 12.5 sec [facility] International Normalization Ratio 1.0 [facility] Comment: An INR <2.0 indicates [...] Performing Organization Address City/[facility] Co de Phone Number [facility] [place] [address] documented in this encounter Visit Diagnoses Diagnosis HFrEF (heart failure with reduced ejection fraction)- Primary Left bundle branch block Other left bundle branch block Nonischemic cardiomyopathy Other primary cardiomyopathies Cardiac resynchronization therapy defibrillator (CONDUCTOR ORCHESTRA-D) in place Left bundle branch block Other [...] Routine documented in this encounter Care Teams Textile Technical Officer Relationship Specialty Start Date End Date Lolly Oliveira MD [address] [place] [address] PCP - General 07/17/13 documented as of this encounter
--- OUTSIDE RECORDS SUMMARY | 2023-11-24 11:10 | XMS_ITS | Encounter Summary ---
Author Organization [facility] [place] [address] Care Team Providers Care Electric Gas Appliances Demonstrator Name Role Phone Lolly Oliveira MD Primary Care Provider [phone] Reason for Visit * Reason Onset Date Comments Other 07/24/2022 Implanted Cardia c Device Teaching/Education Encounter Details Date Type Department Care Team (Late st Contact Info) Description 07/24/2022 Notes Only Cardiology at [address] [id number] Letha Arroyo Other (Implanted Cardiac Device Teaching/Education) Social History Tobacco Use Types Packs/Day Years Used Date Smoking Tobacco: Never Alcohol Use Standard Drinks/Week Comments Not Currently 0 (1 standard drink = 0.6 oz pur e alcohol) [facility] Inpatient Questions Answer Date Recorded Does [...] to call the Cardiac Device Clinic at [phone] with any questions. Plan: Post op check: [...] [facility] Hospital Encounter Non-[place] [address] Arrived documented as of this encounter Visit Diagnoses Not on filedocumented in this encounter Care Teams Electric Gas Appliances Demonstrator Relationship Specialty Start Date End Date Lolly Oliveira MD [address] [place] [address] PCP - General 07/17/13 documented as of this encounter
--- OUTSIDE RECORDS SUMMARY | 2023-11-24 11:10 | XMS_ITS | Encounter Summary ---
[place] [address] Care Team Providers Care Supervisor Cook House Name Role Phone Lolly Oliveira MD Primary Care Provider [phone] Encounter Details Date Type Department Care Team [...] AM EST Hospital Encounter Non-[place]vasive [place] [address] Arrived documented as of this encounter Visit Diagnoses Not on filedocumented in this encounter Care Teams Supervisor Cook House Relationship Specialty Start Date End Date Lolly Oliveira MD [address] [place] [address] PCP - General 07/17/13 documented as of this encounter
--- OUTSIDE RECORDS SUMMARY | 2023-11-24 11:10 | XMS_ITS | Encounter Summary ---
Author Organization [facility] [place] [address] Care Team Providers Care Auto Appraiser Name Role Phone Lolly Oliveira MD Primary Care Provider [phone] Reason for Referral * Diagnostic Test (Routine) - Closed Specialty Diagnoses / Procedures Referred By Contac t Referred To Contact Radiology Diagnoses Left bundle branch block Nonischemic cardiomyopathy Procedures MRI Cardiac Morphology Function With Flow Velocity Quantification wwo Contrast MRI Cardiac Morphology Function wwo Contrast Lalit Mcmahon MD [facility] [place] [address] [place] [address] Referral ID Status Reason Start Date Expiration Date V isits Requested Visits Authorized [id number] Closed Specialty Service Requested 05/06/2022 11/07/2023 2 1 Encounter Details Date Type Department Care Team (Late st Contact Info) Description 05/06/2022 Orders Only Cardiology at [address] [address] Lalit Mcmahon MD [facility] [place] [address] Left bundle branch block; Nonischemic cardiomyopathy Social [...] AM EST Hospital Encounter Non-[place] [address] Arrived documented as of this encounter Results [...] have questions please contact the health director of healthcare systems that requested your imaging first. ? Narrative [...] who have questions please contactthe health director of healthcare systems that requested your imaging first. Lalit Mcmahon MD IMG MRI ORDERABLES documented in this encounter Visit Diagnoses Diagnosis Left bundle branch block Other left bundle branch block Nonischemic cardiomyopathy Other primary cardiomyopathies Left bundle branch block Other left bundle branch block Nonischemic cardiomyopathy Other primary cardiomyopathies documented in this encounter Care Teams Auto Appraiser Relationship Specialty Start Date End Date Lolly Oliveira MD [address] [place] [address] PCP - General 07/17/13 documented as of this encounter
--- OUTSIDE RECORDS SUMMARY | 2023-11-24 11:10 | XMS_ITS | Encounter Summary ---
Author Organization [place] [address] Care Team Providers Care Plastic Production Machine Setter Name Role Phone Lolly Oliveira MD Primary Care Provider Encounter Details Date Type Department Care Team (Late st Contact Info) Description 07/26/2013 Orders [place] [phone] Eleno Christian MD [facility] [place] [address] Social History Tobacco Use Types Packs/Day Years [...] AM EST Hospital Encounter Non-[place] [address] Arrived documented as of this encounter Visit Diagnoses Not on filedocumented in this encounter Care Teams Plastic Production Machine Setter Relationship Specialty Start Date End Date Lolly Oliveira MD [address] [place] [address] PCP - General 07/17/13 documented as of this encounter
--- OUTSIDE RECORDS SUMMARY | 2023-11-24 11:10 | XMS_ITS | Encounter Summary ---
Author Organization [facility] [place] [address] Care Team Providers Care Wood Grinder Name Role Phone Lolly Oliveira MD Primary Care Provider [phone] Encounter Details Date Type Department Care Team (Late st Contact Info) Description 05/18/2023 Refill Dermatology at [address] [address] Nora Meredith LPN Social [...] patient. She voiced understanding. Order sent to [facility] drug. documented in this encounter Plan of Treatment Upcoming Encounters Date Type Department Care Team (Late st Contact Info) Description 01/16/2024 10:00 AM EST Hospital Encounter Non-[place] [address] Arrived documented as of this encounter Visit Diagnoses Not on filedocumented in this encounter Care Teams Wood Grinder Relationship Specialty Start Date End Date Lolly Oliveira MD [address] [place] [address] PCP - General 07/17/13 documented as of this encounter
--- OUTSIDE RECORDS SUMMARY | 2023-11-24 11:10 | XMS_ITS | Encounter Summary ---
Author Organization [facility] [place] [address] Care Team Providers Care Bleacher [employer] Pulp Name Role Phone Lolly Oliveira MD Primary Care Provider [phone] Reason for Referral * Consultation (Routine) - Closed Specialty Diagnoses / Procedures Referred By Contact Referred To Contact Electrophysiology / Cardiology Diagnoses Left bundle branch block Cardiomyopathy, unspecified type AT MINIMUM PT NEEDS CONSIDERATION FOR DEFIBRILLATOR, ALSO CANDIDATE FOR RESYNCHRONIZATION THERAPY HER QRS IS >0.16 Lolly Oliveira MD [address] [place] [address] [facility] Cardiology [address] [place] [phone] Referral ID Status Reason Start Date Expiration Date V isits Requested Visits Authorized [id number] Closed Consult, Test & Treat PCP Updated and/or Approved 04/30/2022 04/30/2023 6 6 Encounter Details Date Type Department Care Team (Latest Contact Info) Description 04/30/2022 Transcribe Orders eDH Incoming Referrals [phone] Lolly Oliveira MD [address] [place], [place] [id number] Left bundle branch block; Cardiomyopathy, unspecified type [...] AM EST Hospital Encounter Non-[place] [address] Arrived Scheduled Referrals Name Type Priority Associated Diagnoses Orde r Schedule Referral to Cardiology Outpatient Referral Routine Left bundle branch block Cardiomyopathy, Unspecified Type Ordered: 04/30/2022 documented as of this encounter Visit Diagnoses Diagnosis Left bundle branch block Other left bundle branch block Cardiomyopathy, unspecified type documented in this encounter Care Teams Bleacher [employer] Relationship Specialty Start Date End Date Lolly Oliveira MD [address] [place] [address] PCP - General 07/17/13 documented as of this encounter
--- OUTSIDE RECORDS SUMMARY | 2023-11-24 11:10 | XMS_ITS | Encounter Summary ---
[place] [address] Care Team Providers Care Lathing Supervisor Name Role Phone Lolly Oliveira MD Primary Care Provider [phone] Encounter Details Date Type Department Care Team (Latest Contact Info) Description 07/26/2013 9:45 AM EDT - 07/26/2013 11:59 PM EDT Hospital [place] [address] Mammographic microcalcification Social History Tobacco Use Types [...] AM EST Hospital Encounter Non-Invasive [place] [address] Arrived documented as of this encounter Procedures Procedure Name Priority Date/Time Associated Diagnosis Comments SURGICAL PATHOLOGY REPORT Routine 07/26/2013 12:12 PM EDT MAMMO SPECIMEN IMAGING DURING BIOPSY Routine 07/26/2013 11:58 AM EDT Mammographic microcalcification documented in this encounter Results * Surgical Pathology Report (07/26/2013 12:12 PM EDT) Final Diagnosis ? [facility] ? Provider: ?? ELENO CHRISTIAN ?? Pt. Name: ?? JING ALVARENGA ? Acc #: ?[id number] ?Pt. ? Col Date: ?? 07/26/2013 ? [...] Partially fragmented, fibrofatty needle core biopsies. ? [facility] ? Provider: ?? ELENO CHRISTIAN ?? Pt. Name: ?? JING ALVARENGA ? Acc #: ?[id number] ?Pt. ? Col Date: ?? 07/26/2013 ? [...] Organization Address City/State/[facility] Co nm Phone Number [facility] [place] [address] * Mammo Specimen Imaging During Biopsy (07/26/2013 [...] microcalcification documented in this encounter Care Teams Lathing Supervisor Relationship Specialty Start Date End Date Lolly Oliveira MD [address] [place] [address] PCP - General 07/17/13 documented as of this encounter
--- OUTSIDE RECORDS SUMMARY | 2023-11-24 11:10 | XMS_ITS | Encounter Summary ---
Author Organization [facility] [place] [address] Care Team Providers Care Wood Flooring Specialist Name Role Phone Lolly Oliveira MD Primary Care Provider [phone] Encounter Details Date Type Department Care Team (Latest Contact Info) Description 07/20/2023 10:00 AM EDT - 07/20/2023 11:59 PM EDT Hospital Encounter [place] [phone] Discharge Disposition: Home Social History Tobacco Use [...] with spacer fluticasone propionate (Flonase) 50 mcg/actuation [place], Suspension 1 spray by Each Nare route daily as needed. documented as of this encounter Plan of Treatment Upcoming Encounters Date Type Department Care Team (Late st Contact Info) Description 01/16/2024 10:00 AM [facility] Hospital Encounter Non-[place] [address] Arrived documented as of this encounter Procedures [...] filedocumented in this encounter Care Teams Wood Flooring Specialist Relationship Specialty Start Date End Date Lolly Oliveira MD [address] [place] [address] PCP - General 07/17/13 documented as of this encounter
--- OUTSIDE RECORDS SUMMARY | 2023-11-24 11:10 | XMS_ITS | Encounter Summary ---
Author Organization [place] [address] Care Team Providers Care Top Dyeing Machine Tender Name Role Phone Lolly Oliveira MD Primary Care Provider [phone] Encounter Details Date Type Department Care Team (Late Contact Info) Description 01/14/2022 Telephone Dermatology at [address] [address] Nora Meredith LPN Social History [...] return to phototherapy. New order sent to [facility]. Reviewed with patient Dr. Mar recommendation. She agrees with plan of care. Advised patient order will be sent to [facility]. She voiced understanding. documented in this encounter Plan of Treatment Upcoming Encounters Date Type Department Care Team (Late Contact Info) Description 01/16/2024 10:00 AM EST Hospital Encounter [place] [address] Arrived documented as of this encounter Visit Diagnoses Not on filedocumented in this encounter Care Teams Top Dyeing Machine Tender Relationship Specialty Start Date End Date Lolly Oliveira MD [address] [place] [address] PCP - General 07/17/13 documented as of this encounter
--- OUTSIDE RECORDS SUMMARY | 2023-11-24 11:10 | XMS_ITS | Encounter Summary ---
Author Organization [facility] [place] [address] Care Team Providers Care Legal Transcriptionist Name Role Phone Lolly Oliveira MD Primary Care Provider [phone] Encounter Details Date Type Department Care Team (Latest Contact Info) Description 10/23/2022 10:00 AM EDT - 10/23/2022 11:59 PM EDT Hospital Encounter Non-Invasive [place] [address] Discharge Disposition: Home Social History Tobacco Use [...] with spacer fluticasone propionate (Flonase) 50 mcg/actuation [place], Suspension 1 spray by Each Nare route [...] [facility] Hospital Encounter Non-Invasive [place] [address] Arrived documented as of this [...] filedocumented in this encounter Care Teams Legal Transcriptionist Relationship Specialty Start Date End Date Lolly Oliveira MD [address] [place] [address] PCP - General 07/17/13 documented as of this encounter
--- OUTSIDE RECORDS SUMMARY | 2023-11-24 11:10 | XMS_ITS | Encounter Summary ---
Author Organization [facility]ly [facility] [place] [address] Care Team Providers Care Forepart Rasper Name Role Phone Lolly Oliveira MD Primary Care Provider [phone] Encounter Details Date Type Department Care Team [...] AM EST Hospital Encounter Non-[place] [address] Arrived documented as of this encounter Visit Diagnoses Not on filedocumented in this encounter Care Teams Forepart Rasper Relationship Specialty Start Date End Date Lolly Oliveira MD [address] [place] [address] PCP - General 07/17/13 documented as of this encounter
--- OUTSIDE RECORDS SUMMARY | 2023-11-24 11:10 | XMS_ITS | Encounter Summary ---
Author Organization [facility] [place] [address] Care Team Providers Care Gardener Name Role Phone Lolly Oliveira MD Primary Care Provider [phone] Reason for Visit * Reason Comments Follow-up 8 weeks UVB treatmen t twice weekly Encounter Details Date Type Department Care Team (Late st Contact Info) Description 07/19/2023 11:00 AM EDT Office Visit Dermatology at [address] [phone] Clay Ramírez MD [address], ERIKA A DERMATOLOGY [place], [place] [id number] Psoriasis Social History Tobacco Use Types Packs/Day [...] [facility] Hospital Encounter Non-[place] [address] Arrived documented as of this encounter Visit Diagnoses Diagnosis Psoriasis Other psoriasis documented in this encounter Care Teams Gardener Relationship Specialty Start Date End Date Lolly Oliveira MD [address] [place] [address] PCP - General 07/17/13 documented as of this encounter
--- OUTSIDE RECORDS SUMMARY | 2023-11-24 11:10 | XMS_ITS | Encounter Summary ---
[place] [address] Care Team Providers Care Clothing Worker Name Role Phone Lolly Oliveira MD Primary Care Provider [phone] Encounter Details Date Type Department Care Team [...] AM EST Hospital Encounter Non-Invasive [place] [address] Arrived documented as of this encounter Visit Diagnoses Not on filedocumented in this encounter Care Teams Clothing Worker Relationship Specialty Start Date End Date Lolly Oliveira MD [address] [place] [address] PCP - General 07/17/13 documented as of this encounter
--- OUTSIDE RECORDS SUMMARY | 2023-11-24 11:10 | XMS_ITS | Encounter Summary ---
Author Organization [facility] [place] [address] Care Team Providers Care Social Media Content Manager Name Role Phone Lolly Oliveira MD Primary Care Provider [phone] Encounter Details Date Type Department Care Team (Late st Contact Info) Description 03/17/2023 Telephone Cardiology at [address] [phone] Saranya Ma Social History Tobacco Use Types Packs/Day Years Used Date Smoking Tobacco: Never Alcohol Use Standard Drinks/Week Comments Not Currently 0 (1 standard drink = 0.6 oz pur e alcohol) [facility] Inpatient Questions Answer Date Recorded Does Anyone [...] 9:43 AM EST Echo order faxed to [facility] at [phone]. No Prior auth needed. Ref #:[id number]. Saranya Ma Sr. Clinical Procedure Holt/Color Expert documented in this encounter Plan of Treatment Upcoming Encounters Date Type Department Care Team (Late st Contact Info) Description 01/16/2024 10:00 AM [facility] Hospital Encounter Non-Invasive [place] [address] Arrived documented as of this encounter Visit Diagnoses Not on filedocumented in this encounter Care Teams Social Media Content Manager Relationship Specialty Start Date End Date Lolly Oliveira MD [address] [place] [address] PCP - General 07/17/13 documented as of this encounter
--- OUTSIDE RECORDS SUMMARY | 2023-11-24 11:10 | XMS_ITS | Encounter Summary ---
Author Organization [facility] [place] [address] Care Team Providers Care Bellows Filler Name Role Phone Lolly Oliveira MD Primary Care Provider [phone] Reason for Referral * Diagnostic Test (Routine) - Closed Specialty Diagnoses / Procedures Referred By Contac t Referred To Contact Radiology Diagnoses Left bundle branch block Nonischemic cardiomyopathy Procedures MRI Cardiac Morphology Function With Flow Velocity Quantification [facility] Contrast MRI Cardiac Morphology Function wwo Contrast Lalit Mcmahon MD [facility] [place] [address] [place] [address] Referral ID Status Reason Start Date Expiration Date V isits Requested Visits Authorized [id number] Closed Specialty Service Requested 05/06/2022 11/07/2023 2 1 Reason for Visit * Diagnostic Test (Routine) - Closed Specialty Diagnoses / Procedures Referred By Contac t Referred To Contact Radiology Diagnoses Left bundle branch block Nonischemic cardiomyopathy Procedures MRI Cardiac Morphology Function With Flow Velocity Quantification o Contrast MRI Cardiac Morphology Function wwo Contrast Lalit Mcmahon MD [facility] [place] [address] [place] [address] Referral ID Status Reason Start Date Expiration Date V isits Requested Visits Authorized [id number] Closed Specialty Service Requested 05/06/2022 11/07/2023 2 1 Encounter Details Date Type Department Care Team (Latest Contact Info) Description 07/14/2022 9:08 AM EDT Hospital Encounter MRI at [facility] [place] [address] Lalit Mcmahon MD [facility] [place] [address] Left bundle branch block; Nonischemic cardiomyopathy Discharge [...] with spacer fluticasone propionate (Flonase) 50 mcg/actuation [place], Suspension 1 spray by Each Nare route [...] 71 y.o. : 1950 [address] [facility] [address] Female [phone] (home) No relevant phone numbers on file. Lolly Oliveira MD None Allergies Allergen Reactions ??? Sulfa (Sulfonamide Antibiotics) Date/Time of call: July 07, 2022/11:03 AM/ PREVIOUS MRI SCAN? HEIGHT: WEIGHT: SCHEDULED SCAN: MRI CARDIAC MORPHOLOGY FUNCTION WITH FLOW VELOCITY QUANTIFICATION WWO CONTRAST [[id number]] Order Questions Answers Where will study be performed? [facility] Radiology [120] SUBJECTIVE: Very Claustrophobic CAN [...] ( KV ) You must have a charter coach driver present when you check in. This patient has been informed that they require a charter coach driver to drive them home after this procedure. In the absence of a charter coach driver, IR will not be able to sedate for your scan. Pt verbalized understanding of these instructions during the pre-procedure education via phone. Yes Name of charter coach driver: Daughter Phone number: PRIOR SCAN DATE/S SEDATION TYPE SUCCESSFUL 07/14/22 MRI Cardiac Morphology Function with Flow Velocity Quantification wwo Contrast Ativan 1mg x 1 dose Pass Revised 08/03/17 documented in this encounter Plan of Treatment Upcoming Encounters Date Type Department Care Team (Late st Contact Info) Description 01/16/2024 10:00 AM [facility] Hospital Encounter [place] [address] Arrived documented as of this encounter Procedures [...] questions please contact the health home health care respiratory therapist that requested your imaging first. ? Electronically signed by: Greyson Herron MD, [facility] ([phone]), at 07/15/2022 9:53 AM Narrative 07/15/2022 9:53 [...] have questions please contactthe health home health care respiratory therapist that requested your imaging first. Lalit Mcmahon [...] mg documented in this encounter Care Teams Bellows Filler Relationship Specialty Start Date End Date Lolly Oliveira MD [address] [place] [address] PCP - General 07/17/13 documented as of this encounter
--- OUTSIDE RECORDS SUMMARY | 2023-11-24 11:10 | XMS_ITS | Encounter Summary ---
Author Organization [facility] Address [facility] [place] [address] Care Team Providers Care Brush Painter Name Role Phone Lolly Oliveira MD Primary Care Provider [phone] Encounter Details Date Type Department Care Team (Late st Contact Info) Description 11/11/2022 Orders Only Cardiology at [address] [phone] Lalit Mcmahon MD [facility] [place] [address] Nonischemic cardiomyopathy Social History Tobacco Use Types [...] st Contact Info) Description 01/16/2024 10:00 AM [facility] Hospital Encounter Non-Invasive [place] [address] Arrived documented as of this encounter Visit Diagnoses Diagnosis Nonischemic cardiomyopathy Other primary cardiomyopathies documented in this encounter Care Teams Brush Painter Relationship Specialty Start Date End Date Berrian, Lolly M, MD [address] [place] [address] PCP - General 07/17/13 documented as of this encounter
--- OUTSIDE RECORDS SUMMARY | 2023-11-24 11:10 | XMS_ITS | Encounter Summary ---
Author Organization [facility] [place] [address] Care Team Providers Care Power Lineman Name Role Phone Lolly Oliveira MD Primary Care Provider [phone] Reason for Visit * Reason Onset Date Comments Pre Procedure Call 07/01/2022 Encounter Details Date Type Department Care Team (Late st Contact Info) Description 07/01/2022 Telephone Cardiology at [address] [phone] Rosenda Sutton RN Pre Procedure Call Social History Tobacco Use Types Packs/Day Years Used Date Smoking Tobacco: Never Sex and Gender Information Value Date Recorded Sex Assigned at Not on file Gender Identity Not on file Sexual Orientation Not on file documented as of this encounter Miscellaneous Notes * Telephone Encounter - Rosenda Sutton RN - 07/01/2022 9:30 AM EDTSummary: Pre Procedure Call: OVEN LOADER implant EP VULCAN CREWMEMBER COORDINATION CHECKLIST Patient Name: Luna Mott Patient Performing Director Insurance: Lalit Mcmahon Referring Provider: Lolly Oliveira Date of Procedure: 07/23/22 Arrival Time/ Case Time: 12:00 pm / 1:00 pm Check In Location: Highway Maintenance Technician Desk 4W Date Patient was Called: 07/01/22 Procedure: OVEN LOADER Company: [employer] Type: OVEN LOADER-D Laterality: LEFT Orders: Yes Lab Orders: Yes [...] overnight , understands that they will need class c truck driver on day of discharge Notified pt that Goff catheter may be placed on day of procedure depending on type & duration of case. documented in this encounter Plan of Treatment Upcoming Encounters Date Type Department Care Team (Late st Contact Info) Description 01/16/2024 10:00 AM [facility] Hospital Encounter [place] [address] Arrived documented as of this encounter Visit Diagnoses Not on filedocumented in this encounter Care Teams Power Lineman Relationship Specialty Start Date End Date Lolly Oliveira MD [address] [place] [address] PCP - General 07/17/13 documented as of this encounter
--- OUTSIDE RECORDS SUMMARY | 2023-11-24 11:10 | XMS_ITS | Encounter Summary ---
Author Organization [facility] [place] [address] Care Team Providers Care Night Custodian Name Role Phone Lolly Oliveira MD Primary Care Provider [phone] Reason for Visit * Reason Comments Follow-up Encounter Details Date Type Department Care Team (Late st Contact Info) Description 06/06/2021 8:45 AM EDT Office Visit Dermatology at [address] [address] Clay Ramírez MD [address] [facility], [place] [address] Psoriasis, guttate Social History Tobacco Use Types [...] [facility] Hospital Encounter [place] [address] Arrived documented as of this encounter Visit Diagnoses Diagnosis Psoriasis, guttate Other psoriasis documented in this encounter Care Teams Night Custodian Relationship Specialty Start Date End Date Lolly Oliveira MD [address] [place] [address] PCP - General 07/17/13 documented as of this encounter
--- OUTSIDE RECORDS SUMMARY | 2023-11-24 11:10 | XMS_ITS | Encounter Summary ---
Author Organization [facility] [place] [address] Care Team Providers Care Cake Press Operator Helper Name Role Phone Lolly Oliveira MD Primary Care Provider [phone] Encounter Details Date Type Department Care Team (Late st Contact Info) Description 03/15/2023 Telephone Cardiology at [address] [phone] Saranya Ma Social History Tobacco Use Types Packs/Day Years Used Date Smoking Tobacco: Never Alcohol Use Standard Drinks/Week Comments Not Currently 0 (1 standard drink = 0.6 oz pur e alcohol) [facility] Inpatient Questions Answer Date Recorded Does Anyone [...] her to have an echo done at [facility] prior to her appt withokm there on 05/12/23. Message sent to Dr. Mcmahon asking him to put order in if he would like her to have this done. Saranya Ma Sr. Clinical Procedure Company Doctor/Bag Presser documented in this encounter Plan of Treatment Upcoming Encounters Date Type Department Care Team (Late st Contact Info) Description 01/16/2024 10:00 AM EST Hospital Encounter Non-[place] [address] Arrived documented as of this encounter Visit Diagnoses Not on filedocumented in this encounter Care Teams Cake Press Operator Helper Relationship Specialty Start Date End Date Lolly Oliveira MD [address] [place] [address] PCP - General 07/17/13 documented as of this encounter
--- OUTSIDE RECORDS SUMMARY | 2023-11-24 11:10 | XMS_ITS | Encounter Summary ---
Author Organization [facility] Address [facility] [address] Care Team Providers Care Concierge Receptionist Name Role Phone Lolly Oliveira MD Primary Care Provider [phone] Encounter Details Date Type Department Care Team (Late st Contact Info) Description 01/29/2023 Notes Only Cardiology at [address] [address] Merle Lin PA [facility] [place] [address] Social History Tobacco Use Types Packs/Day Years Used Date Smoking Tobacco: Never Alcohol Use Standard Drinks/Week Comments Not Currently 0 (1 standard drink = 0.6 oz pur e alcohol) [facility] Inpatient Questions Answer Date Recorded Does Anyone [...] pdf document Date of transmission: 01/29/2023 Device word processor operator: BSI Device type: ELECTRONIC TESTER-D Presenting rhythm: /RVP/LVP AP 21% Right SHANK BONER 100% Left SHANK BONER: 100% Battery: 10.5 years HeartLogic Index rising in setting of increasing S3 intensity, increasing respiratory rate, increasing night heart rate, and increasing mean heart rate. MICKEY Villa 01/29/2023 9:06 AM documented in this encounter Plan of Treatment Upcoming Encounters Date Type Department Care Team (Late st Contact Info) Description 01/16/2024 10:00 AM EST Hospital Encounter Non-Invasive [place] [address] Arrived documented as of this encounter Visit Diagnoses Not on filedocumented in this encounter Care Teams Concierge Receptionist Relationship Specialty Start Date End Date Lolly Oliveira MD [address] [place] [address] PCP - General 07/17/13 documented as of this encounter
--- OUTSIDE RECORDS SUMMARY | 2023-11-24 11:10 | XMS_ITS | Encounter Summary ---
Author Organization [facility] [place] [address] Care Team Providers Care Advertising Vice President Name Role Phone Lolly Oliveira MD Primary Care Provider [phone] Encounter Details Date Type Department Care Team (Latest Contact Info) Description 01/21/2023 10:00 AM EST - 01/21/2023 11:59 PM EST Hospital Encounter [place] [address] Discharge Disposition: Home Social History Tobacco Use [...] AM EST Hospital Encounter Non-[place] [address] Arrived documented as of this [...] on filedocumented in this encounter Care Teams Advertising Vice President Relationship Specialty Start Date End Date Lolly Oliveira MD [address] [place] [address] PCP - General 07/17/13 documented as of this encounter
--- OUTSIDE RECORDS SUMMARY | 2023-11-24 11:11 | XMS_ITS | Encounter Summary ---
Author Organization [facility] [place] [address] Care Team Providers Care Director Export Name Role Phone Lolly Oliveira MD Primary Care Provider [phone] Encounter Details Date Type Department Care Team (Latest Contact Info) Description 07/20/2013 9:26 AM EDT - 07/20/2013 11:59 PM EDT Hospital Encounter [place] [address] CLINIC, Lolly So MD [address] [place], [place] [id number] Mammographic microcalcification Discharge Disposition: Home Social History [...] AM EST Hospital Encounter Non-Invasive [place] [address] Arrived documented as of this encounter Procedures [...] not layer and, therefore, are not account services representative of milk of calcium. Again, [...] not layer and, therefore, are not account services representative of milk of calcium. Again, these have an amorphous andpunctate appearance and remain indeterminate. Stereotactic guided biopsy isrecommended. Alia Fraire MD IMG MAMMO ORDERABLES documented in this encounter Visit Diagnoses Diagnosis Mammographic microcalcification documented in this encounter Care Teams Director Export Relationship Specialty Start Date End Date Lolly Oliveira MD [address] [place] [address] PCP - General 07/17/13 documented as of this encounter
--- OUTSIDE RECORDS SUMMARY | 2023-11-24 11:11 | XMS_ITS | Encounter Summary ---
Author Organization [facility] [place] [address] Care Team Providers Care Linux System Administrator Name Role Phone Lolly Oliveira MD Primary Care Provider [phone] Encounter Details Date Type Department Care Team (Latest Contact Info) Description 07/17/2013 8:40 AM EDT - 07/17/2013 11:59 PM EDT Hospital Encounter XRay at [address] [place] [phone] CLINIC, DR [facility] Discharge Disposition: Home Social [...] AM EST Hospital Encounter Non-[place] [address] Arrived documented as of this encounter Visit Diagnoses Not on filedocumented in this encounter Care Teams Linux System Administrator Relationship Specialty Start Date End Date Lolly Oliveira MD [address] [place] [address] PCP - General 07/17/13 documented as of this encounter
--- OUTSIDE RECORDS SUMMARY | 2023-11-24 11:11 | XMS_ITS | Encounter Summary ---
Author Organization [facility] [place] [address] Care Team Providers Care Carbon Electrodes Supervisor Name Role Phone Unavailable Primary Care Provider Unavailabl e Encounter Details Date Type Department Care Team (Late st Contact Info) Description 07/14/2013 External Results XRay at [address] [place] [address] Provider, Scanning Social History Tobacco Use Types [...] AM EST Hospital Encounter Non-Invasive Cardiology Lab [facility] [place] [address] Arrived documented as of this encounter Procedures [...]
--- OUTSIDE RECORDS SUMMARY | 2023-11-24 11:11 | XMS_ITS | Encounter Summary ---
Author Organization [facility] [place] [address] Care Team Providers Care Head Counselor Name Role Phone Unavailable Primary Care Provider Unavailabl e Encounter Details Date Type Department Care Team (Late st Contact Info) Description 07/14/2013 [place] [address] Eleno Christian MD [facility] [place] [address] Social History Tobacco Use Types Packs/Day Years [...] AM EST Hospital Encounter Non-Invasive [place] [address] Arrived documented as of this encounter Visit Diagnoses Not on filedocumented in this encounter
--- OUTSIDE RECORDS SUMMARY | 2023-11-24 11:11 | XMS_ITS | Encounter Summary ---
Author Organization [place] [address] Care Team Providers Care Annealing Torch Operator Name Role Phone Unavailable Primary Care Provider Unavailabl e Encounter Details Date Type Department Care Team (Late st Contact Info) Description 07/04/2012 [place] [phone] Eleno Christian MD [facility] [place] [address] Social History Tobacco Use Types Packs/Day Years [...] AM EST Hospital Encounter [place] [phone] Arrived documented as of this encounter Procedures [...] is a Non-reportable exam Eleno Christian MD [facility] FILM LIBRARY ORD ERABLES documented in this encounter Visit Diagnoses Not on filedocumented in this encounter
--- OUTSIDE RECORDS SUMMARY | 2023-11-24 11:11 | XMS_ITS | Encounter Summary ---
[place] [address] Care Team Providers Care Head Pumper Name Role Phone Lolly Oliveira MD Primary Care Provider Encounter Details Date Type Department Care Team (Late st Contact Info) Description 07/17/2013 [place] [phone] Lolly Oliveira MD [address] [place], [place] [id number] Social History Tobacco Use Types Packs/Day Years [...] AM EST Hospital Encounter Non[place] [address]-1000 Arrived documented as of this encounter Procedures Procedure Name Priority Date/Time Associated Diagnosis Comments REQUEST FOR 2ND READ MAMMO Routine 07/17/2013 8:45 AM EDT documented in this encounter Results * Request for 2nd read Mammo (07/17/2013 8:45 AM EDT) Anatomical Region Laterality Modality Other 07/17/2013 8:45 AM EDT Narrative 07/17/2013 3:57 PM EDT INTERPRETATION OF OUTSIDE MAMMOGRAMS (PERFORMED ON 07/06/13 AND 07/14/13) FROM [facility] DATED 07/17/13: ?? DIAGNOSTIC IMAGING SUMMARY: [...] (PERFORMED ON 07/06/13 AND 07/14/13) [facility] DATED 07/17/13: DIAGNOSTIC IMAGING SUMMARY: [...] filedocumented in this encounter Care Teams Head Pumper Relationship Specialty Start Date End Date Lolly Oliveira MD [address] [place] [address] PCP - General 07/17/13 documented as of this encounter
--- OUTSIDE RECORDS SUMMARY | 2023-11-24 11:11 | XMS_ITS | Encounter Summary ---
Author Organization Count Includes [facility] [address] Care Team Providers Care Wire Weaving Loom Setter Name Role Phone Lolly Oliveira MD Primary Care Provider [phone] Encounter Details Date Type Department Care Team (Latest Contact Info) Description 07/18/2013 Orders [place] [phone] Alia Fraire MD [facility] DIAGNOST[place] [address] Mammographic microcalcification (Primary Dx) Social History Tobacco [...] AM EST Hospital Encounter Non-[place] [phone] Arrived documented as of this encounter Results [...] are present on specimen digital X-ray. A [employer] Eviva-Stereo 13 Cylinder marker clip was placed. [...] calcifications are present on specimendigital X-ray. A [employer] Eviva-Stereo 13 Cylinder marker clip was placed. [...] microcalcification documented in this encounter Care Teams Wire Weaving Loom Setter Relationship Specialty Start Date End Date Lolly Oliveira MD [address] [place] [address] PCP - General 07/17/13 documented as of this encounter
--- OUTSIDE RECORDS SUMMARY | 2023-11-24 11:11 | XMS_ITS | Encounter Summary ---
Author Organization [facility] [place] [address] Care Team Providers Care Graduate Assistant Name Role Phone Lolly Oliveira MD Primary Care Provider [phone] Encounter Details Date Type Department Care Team (Late st Contact Info) Description 06/29/2011 [place] [phone] Eleno Christian MD [facility] [place]AGNOST[place] [address] Social History Tobacco Use Types Packs/Day Years [...] AM EST Hospital Encounter Non-Invasive [place] [phone] Arrived documented as of this encounter Procedures [...] exam Eleno Christian MD [facility] FILM LIBRARY ORD ERABLES documented in this encounter Visit Diagnoses Not on filedocumented in this encounter Care Teams Graduate Assistant Relationship Specialty Start Date End Date Lolly Oliveira MD [address] [place] [address] PCP - General 07/17/13 documented as of this encounter
--- OUTSIDE RECORDS SUMMARY | 2023-11-24 11:11 | XMS_ITS | Encounter Summary ---
Author Organization [facility] [place] [address] Care Team Providers Care Military Analyst Name Role Phone Lolly Oliveira MD Primary Care Provider [phone] Encounter Details Date Type Department Care Team (Latest Contact Info) Description 07/26/2013 9:44 AM EDT - 07/26/2013 11:59 PM EDT Hospital Encounter [place] [phone] CLINIC, Lolly So MD [address] [place], [place] [id number] Mammographic microcalcification Discharge Disposition: Home Social History [...] AM EST Hospital Encounter Non-Invasive [place] [address] Arrived documented as of this encounter Procedures [...] are present on specimen digital X-ray. A [employer] Vision-Stereo 13 Cylinder marker clip was placed. Cranio-caudal [...] mLs documented in this encounter Care Teams Military Analyst Relationship Specialty Start Date End Date Lolly Oliveira MD [address] [place] [address] PCP - General 07/17/13 documented as of this encounter
[2023-11-24 12:52] VITALS: BP 131/64; PULSE 75
--- OUTSIDE RECORDS SUMMARY | 2023-11-26 10:44 | XMS_ITS | Encounter Summary ---
Author Organization [facility] Address [address] [place] [address] Care Team Providers Care Trace Evidence Technician Name Role Phone Lolly Oliveira MD Primary Care Provider [phone] Encounter Details Date Type Department Care Team (Late st Contact Info) Description 02/11/2021 Lab Requisition [facility] Pathology & Laboratory Medicine - [address] [address] Outr Resulting Lab, Provider Social History Tobacco [...] Outr Resulting Lab MICROBIOLOGY - GENERAL ORDERABLES [facility] [address] [place] [address] * COVID-19 TESTING (02/11/2021 8:00 EST) COVID-19 rt-PCR Result Negative Negative 02/12/2021 14:17 EST [facility] Comment: This test has not [...] was performed using the med SARS-CoV-2 assay ([employer] on the Med 6800 System Performing Lab Med [address] [facility] Lab 02/12/2021 14:17 EST [facility] Swab 02/11/2021 8:00 EST 02/11/2021 22:22 EST Provider Outr Resulting Lab MICROBIOLOGY - GENERAL ORDERABLES [facility] [address] [place] [address] documented in this encounter Visit Diagnoses Not on filedocumented in this encounter Care Teams Trace Evidence Technician Relationship Specialty Start Date End Date Lolly Oliveira MD [address] [place] [address] PCP - General 11/13/08 documented as of this encounter
--- OUTSIDE RECORDS SUMMARY | 2023-11-26 10:44 | XMS_ITS | Encounter Summary ---
Author Organization [facility] Address [address] [place] [address] Care Team Providers Care Hardware Sales Assistant Name Role Phone Lolly Oliveira MD Primary Care Provider [phone] Encounter Details Date Type Department Care Team (Late st Contact Info) Description 05/27/2021 Lab Requisition [facility] Pathology & Laboratory Medicine - [address] [address] Iman Moran, DO [address] [place], [place] [phone] Encounter for other general examination Social History [...] 13:31 EDT [facility] Final Diagnosis A. COLON, [...] [facility] Performing Lab [facility] 05/30/2021 13:31 [facility] Scanned Images 05/30/2021 13:31 [facility] Tissue ENTIRE COLON / Unknown 05/27/2021 11:23 EDT 05/27/2021 16:33 EDT Iman Moran DO PATHOLOGY ORDERABLES [facility] [address] [place] [address] documented in this encounter Visit Diagnoses Diagnosis Encounter for other general examination documented in this encounter Care Teams Hardware Sales Assistant Relationship Specialty Start Date End Date Lolly Oliveira MD [address] [place] [address] PCP - General 11/13/08 documented as of this encounter
--- OUTSIDE RECORDS SUMMARY | 2023-11-26 10:44 | XMS_ITS | Encounter Summary ---
Author Organization [facility] Address [address] [place] [address] Care Team Providers Care Bus Van Driver Name Role Phone Lolly Oliveira MD Primary Care Provider [phone] Encounter Details Date Type Department Care Team (Late st Contact Info) Description 11/13/2020 Lab Requisition [facility] Pathology & Laboratory Medicine - [address] [phone] Outr Resulting Lab, Provider Social History Tobacco [...] Outr Resulting Lab MICROBIOLOGY - GENERAL ORDERABLES [facility] [address] [place] [address] * COVID-19 TESTING (11/13/2020 7:30 EDT) COVID-19 rt-PCR Result Negative Negative 11/14/2020 11:46 EDT [facility] Comment: This test [...] performed using the med SARS-CoV-2 assay ([employer]ie [employer] on the Med 6800 System Performing Lab Med 6800 [facility] Lab 11/14/2020 11:46 EDT [facility] Swab 11/13/2020 7:30 EDT 11/13/2020 20:57 EDT Provider Outr Resulting Lab MICROBIOLOGY - GENERAL ORDERABLES [facility] [address] [place] [address] documented in this encounter Visit Diagnoses Not on filedocumented in this encounter Care Teams Bus Van Driver Relationship Specialty Start Date End Date Lolly Oliveira MD [address] [place] [address] PCP - General 11/13/08 documented as of this encounter
--- OUTSIDE RECORDS SUMMARY | 2023-11-26 10:44 | XMS_ITS | Encounter Summary ---
Author Organization [facility] Address [address] [place] [address] Care Team Providers Care Canteen Manager Name Role Phone Lolly Oliveira MD Primary Care Provider [phone] Encounter Details Date Type Department Care Team (Late st Contact Info) Description 04/17/2005 Results Only [facility] conversion [address] [place] [address] Lolly Oliveira MD [address] [place], [place] [phone] Social History Tobacco Use Types Packs/Day Years [...] ? JING ALVARENGA ? Accession #: ? [id number] : ? 1950 (Age: 54) ??F ?Collect Date: ? 04/17/2005 Location: ? [facility] ? Receive Date: ? 04/21/2005 Provider: ?LOLLY OLIVEIRA MD Copy to: ? Specimen/Source: ?ThinPrep Pap Test, Cervix/Endocervix, processed on Advenchen LaboratoriesPrep [...] Oliveira MD PATHOLOGY ORDERABLES [facility] [address] [place] [address] documented in this encounter Visit Diagnoses Not on filedocumented in this encounter Care Teams Canteen Manager Relationship Specialty Start Date End Date Lolly Oliveira MD [address] [place] [address] PCP - General 11/13/08 documented as of this encounter
--- OUTSIDE RECORDS SUMMARY | 2023-11-26 10:44 | XMS_ITS | Encounter Summary ---
Author Organization [facility] Address [address] [place] [address] Care Team Providers Care Airport Security Screener Name Role Phone Lolly Oliveira MD Primary Care Provider [phone] Encounter Details Date Type Department Care Team (Late st Contact Info) Description 06/16/2012 Results Only [facility] - [facility] ([facility] [address] [place], [place] [phone] Lolly Oliveira MD [address] [place], [place] [phone] Social History Tobacco Use Types Packs/Day Years [...] ? JING ALVARENGA ? Accession #: ? [id number] : ? 1950 (Age: 61) ??F ?Collect [...] MD PATHOLOGY ORDERABLES [facility] [address] [place] [address] documented in this encounter Visit Diagnoses Not on filedocumented in this encounter Care Teams Airport Security Screener Relationship Specialty Start Date End Date Lolly Oliveira MD [address] [place] [address] PCP - General 11/13/08 documented as of this encounter
--- OUTSIDE RECORDS SUMMARY | 2023-11-26 10:44 | XMS_ITS | Encounter Summary ---
Author Organization [facility] Address [address] [place] [address] Care Team Providers Care Medical Billing Instructor Name Role Phone Lolly Oliveira MD Primary Care Provider [phone] Encounter Details Date Type Department Care Team (Late st Contact Info) Description 05/29/2002 Results Only [facility] conversion [address] [place] [address] Silvia Diehl, [address] [place] [phone] Social History Tobacco Use Types Packs/Day Years [...] ? JING MOTT ? Accession #: ? [id number] : ? 1950 (Age: 51) ??F ?Collect Date: ? 05/29/2002 Location: ? [facility] ? Receive Date: ? 05/31/2002 Provider: ?SILVIA DIEHL ROOM SERVICE WAITER Copy to: ? Specimen/Source: ?ThinPrep Pap Test, [...] Report [facility] 05/29/2002 05/31/2002 Silvia Diehl ROOM SERVICE WAITER PATHOLOGY ORDERABLES [facility] [address] [place] [address] documented in this encounter Visit Diagnoses Not on filedocumented in this encounter Care Teams Medical Billing Instructor Relationship Specialty Start Date End Date Lolly Oliveira MD [address] [place] [address] PCP - General 11/13/08 documented as of this encounter
--- OUTSIDE RECORDS SUMMARY | 2023-11-26 10:44 | XMS_ITS | Encounter Summary ---
Author Organization [facility] Address [address] [place] [address] Care Team Providers Care Band Tacker Name Role Phone Lolly Oliveira MD Primary Care Provider [phone] Encounter Details Date Type Department Care Team (Late st Contact Info) Description 03/06/2003 Results Only [facility] conversion [address] [place] [address] Lolly Oliveira MD [address] [place], [place] [phone] Social History Tobacco Use Types Packs/Day Years [...] Oliveira MD PATHOLOGY ORDERABLES Performing Organization Address City/State/[facility] Co de Phone Number [facility] [address] [place] [address] documented in this encounter Visit Diagnoses Not on filedocumented in this encounter Care Teams Band Tacker Relationship Specialty Start Date End Date Lolly Oliveira MD [address] [place] [address] PCP - General 11/13/08 documented as of this encounter
--- OUTSIDE RECORDS SUMMARY | 2023-11-26 10:44 | XMS_ITS | Encounter Summary ---
Author Organization [facility] Address [address] [place] [address] Care Team Providers Care Odd Piece Checker Name Role Phone Unavailable Primary Care Provider Unavailabl e Encounter Details Date Type Department Care Team (Late st Contact Info) Description 11/07/2008 Orders Only [facility] - [facility] ([facility] [address] [place] [address] Kenneth Parker MD [address] [place] [address] Social History Tobacco Use Types Packs/Day Years [...] ? LYLE, JING ? Accession #: ? [id number] ? : ? 1950 (Age: 58) ??F [...] Parker MD PATHOLOGY ORDERABLES Performing Organization Address City/State/[facility] Co de Phone Number [facility] [address] [place] [address] documented in this encounter Visit Diagnoses Not on filedocumented in this encounter
--- OUTSIDE RECORDS SUMMARY | 2023-11-26 10:44 | XMS_ITS | Encounter Summary ---
Author Organization [facility] Address [address] [place] [address] Care Team Providers Care Furniture Assembler Name Role Phone Lolly Oliveira MD Primary Care Provider Encounter Details Date Type Department Care Team (Late st Contact Info) Description 04/12/2007 Results Only [facility] [place] conversion [address] [place] [address] Lolly Oliveira MD [address] [place], [place] [phone] Social History Tobacco Use Types Packs/Day Years [...] ? JING ALVARENGA ? Accession #: ? [id number] : ? 1950 (Age: 56) ??F ?Collect Date: ? 04/12/2007 Location: ? [facility] ? Receive Date: ? 04/13/2007 Provider: ?LOLLY OLIVEIRA MD Copy to: ? Specimen/Source: ?ThinPrep Pap Test, Cervix/Endocervix, processed on [employer] ThinPrep Imaging System, with manual evaluation Last [...] Oliveira MD PATHOLOGY ORDERABLES [facility] [address] [place] [address] documented in this encounter Visit Diagnoses Not on filedocumented in this encounter Care Teams Furniture Assembler Relationship Specialty Start Date End Date Lolly Oliveira MD [address] [place] [address] PCP - General 11/13/08 documented as of this encounter
--- OUTSIDE RECORDS SUMMARY | 2023-11-26 10:44 | XMS_ITS | Encounter Summary ---
Author Organization [facility] Address [address] [place] [address] Care Team Providers Care Rotary Furnace Tender Name Role Phone Lolly Oliveira MD Primary Care Provider [phone] Encounter Details Date Type Department Care Team (Late st Contact Info) Description 04/01/2005 Results Only [facility] conversion [address] [place] [address] Blair Dukes MD [address] [place] [phone] Social History Tobacco Use Types Packs/Day Years [...] ? JING ALVARENGA ? Accession #: ? [id number] ? : ? 1950 (Age: 54) ??F [...] (A). Received in [place]' s fixative labelled [place] and #2 ??transverse colon bx is a single 0.2 x 0.2 x 0.2 cm tissue, submitted intact as (B). ??(Dr. Lechuga)/[facility] End of Report [facility] 04/01/2005 04/02/2005 15: 24 EST Blair Dukes MD PATHOLOGY ORDERABLES [facility] [address] [place] [address] documented in this encounter Visit Diagnoses Not on filedocumented in this encounter Care Teams Rotary Furnace Tender Relationship Specialty Start Date End Date Lolly Oliveira MD [address] [place] [address] PCP - General 11/13/08 documented as of this encounter
--- OUTSIDE RECORDS SUMMARY | 2023-11-26 10:44 | XMS_ITS | Encounter Summary ---
Author Organization [facility] Address [address] [place] [address] Care Team Providers Care Emd Teacher Name Role Phone Lolly Oliveira MD Primary Care Provider [phone] Encounter Details Date Type Department Care Team (Late st Contact Info) Description 03/21/2019 Lab Requisition [facility] Pathology & Laboratory Medicine - [address] [address] Unknown, Provider, Social History Tobacco Use Types [...] 211 - 911 pg/mL 03/22/2019 11:52 EST [facility] Blood VENOUS BLOOD / Unknown 03/16/2019 9:25 EST 03/21/2019 21:35 EST Provider Unknown CHEMISTRY & BLOOD GA S ORDERABLES [facility] [address] [place] [address] documented in this encounter Visit Diagnoses Not on filedocumented in this encounter Care Teams Emd Teacher Relationship Specialty Start Date End Date Lolly Oliveira MD [address] [place] [id number] PCP - General 11/13/08 documented as of this encounter
--- OUTSIDE RECORDS SUMMARY | 2023-11-26 10:44 | XMS_ITS | Encounter Summary ---
Author Organization [facility] Address [address] [place] [address] Care Team Providers Care Solar Installation Foreman Name Role Phone Lolly Oliveira MD Primary Care Provider [phone] Encounter Details Date Type Department Care Team (Late st Contact Info) Description 05/02/2004 Results Only [facility] [place] conversion [address] [place] [address] Lolly Oliveira MD [address] [place], [place] [phone] Social History Tobacco Use Types Packs/Day Years [...] 68. [facility] Report Status Final [id number] [facility] 05/02/2004 9:32 EST 05/10/2004 9:32 EST Lolly Oliveira MD MICROBIOLOGY - GENER AL ORDERABLES [facility] [address] [place] [address] * CYTOPATHOLOGY (05/02/2004 0:00 EST) Pathology Report: CYTOPATHOLOGY REPORT Reports generated via electronic interface contain original data; however they are lacking the format of the original report. Caution should be taken when reading/interpreti ng unformatted reports. Name: ? JING ALVARENGA ? Accession #: ? [id number] : ? 1950 (Age: 53) ??F ?Collect [...] Oliveira MD PATHOLOGY ORDERABLES Performing Organization Address City/State/[facility] Co de Phone Number [facility] [address] [place] [address] documented in this encounter Visit Diagnoses Not on filedocumented in this encounter Care Teams Solar Installation Foreman Relationship Specialty Start Date End Date Lolly Oliveira MD [address] [place] [address] PCP - General 11/13/08 documented as of this encounter
--- OUTSIDE RECORDS SUMMARY | 2023-11-26 10:44 | XMS_ITS | Continuity of Care Document ---
Author Organization [place] [facility], [facility] Address [address] [place] [address] Care Team Providers Care Public Relations Sales Marketing Name Role Phone [facility] EYE [facility] OFFICE Optometris t ASHLY THURSTON Multimedia Programmer JAYCOB MARTINEZ Orthopedic Surgeon ROXANA KELLEY Ethylene Plant Helper FLOWER RAMSEY Dentist [phone] Assessment No assessment recorded. Plan of Treatment Reminders Order Date Submit Date Provider Last Modified By Organization Details Last Modified Time Details Appointments Follow Up 30 2023 07:30A M Not available Not available Not available Medicare Annual Wellness 40 2024 07:30A M Not available Not available Not available Lab None recorded. Referral physical therapist referral 2023 024 Chinedu Amato PT, [address], [place], [address], 10/18/2023 12:01:58 Procedures None recorded. Surgeries None recorded. Imaging None recorded. Medication Orders meclizine 25 mg tablet 2023 024 [id number], [address] [place], [address], 09/01/2023 13:22:14 Patient TargetsNo targets recorded. Patient Instructions Encounter Date Encounter Id Patient Instructions Last Modified By Organization Details Last Modified Time 09/01/2023 [id number] 1. The earwax from your ears were [...] Not available 09/01/2023 13:23:33 Reason for Referral Assistance Coordinator Referral for Onyc homycosis onychomycosis, calluses Referring Physician: Lolly Oliveira, Family Medicine, Encounter Date: 05/21/2023 Physical Therapist Referral for Vertigo Referring Physician: Jessica Wallis Family Medicine, Encounter Date: 09/01/2023 Results Created Date Observation Date Name Description Value Unit Range Abnormal Flag Note LastModifiedBy Organization Detail LastModifiedTime 11/22/19 24 04/16/2022 bone densi ty No observ ation record ed. Not Available 11/21 06:38:46 11/22/19 24 09/02/2020 MAMMO simbag No observ ation record ed. Not Available 11/21 06:38:51 11/22/19 24 11/10/2022 MAMMO joannae milagro No observ ation record ed. Not Available 11/21 06:38:52 11/22/19 24 10/27/2021 XR, chest No observ ation record ed. Not Available 11/21 06:38:53 11/22/19 24 11/05/2021 MAMMO joannae milagro No observ ation record ed. Not Available 11/21 06:38:55 11/22/19 24 11/28/2018 simba MAN No observ ation record ed. Not Available 11/21 06:38:57 11/22/1901/25/2019 imagi ng/di agnos tic resul t No observ ation record ed. Not Available 11/21 06:39:02 11/22/1902/09/2019 imagi ng/di agnos tic resul t No observ ation record ed. Not Available 11/21 06:39:03 11/22/19 24 09/29/2018 imagi ng/di agnos tic resul t No observ ation record ed. Not Available 11/21 06:39:04 11/22/1912/09/2018 imagi ng/di agnos tic resul t No observ ation record ed. Not Available 11/21 06:39:05 11/22/19 24 01/12/2023 imagi ng/di agnos tic resul t No observ ation record ed. Not Available 11/21 06:39:06 11/22/19 24 01/25/2023 imagi ng/di agnos tic resul t No observ ation record ed. Not Available 11/21 06:39:07 11/22/19 24 10/20/2021 imagi ng/di agnos tic resul t No observ ation record ed. Not Available 11/21 06:39:08 11/22/19 24 01/26/2020 imagi ng/di agnos tic resul t No observ ation record ed. Not Available 11/21 06:39:10 11/22/19 24 08/18/2021 XR, hip No observ ation record ed. Not Available 11/21 06:39:12 11/22/19 24 11/03/2022 imagi ng/di agnos tic resul t No observ ation record ed. Not Available 11/21 06:39:19 11/22/19 24 11/12/2022 imagi ng/di agnos tic resul t No observ ation record ed. Not Available 11/21 06:39:20 11/22/19 24 05/20/2021 imagi ng/di agnos tic resul t No observ ation record ed. Not Available 11/21 06:40:48 11/22/19 24 10/29/2021 imagi ng/di agnos tic resul t No observ ation record ed. Not Available 11/21 06:41:09 11/22/19 24 09/04/2020 DEXA No observ ation record ed. Not Available 11/21 06:42:14 11/22/19 24 05/19/2021 imagi ng/di agnos tic resul t No observ ation record ed. Not Available 11/21 06:42:16 11/22/19 24 07/23/2022 imagi ng/di agnos tic resul t No observ ation record ed. Not Available 11/21 06:42:18 11/22/19 24 01/09/2019 imagi ng/di agnos tic resul t No observ ation record ed. Not Available 11/21 06:42:20 11/22/19 24 12/04/2021 imagi ng/di agnos tic resul t No observ ation record ed. Not Available 11/21 06:42:39 11/22/19 24 04/28/2022 imagi ng/di agnos tic resul t No observ ation record ed. Not Available 11/21 06:42:41 11/22/19 24 01/27/2022 imagi ng/di agnos tic resul t No observ ation record ed. Not Available 11/21 06:42:56 Result Notes None recorded. Problems Name Problem SNOMED Code Status Onset Date Resolution Date Notes Provider Name and Address Organization Details Recorded Time Asthma 067875762 Active 200204/14/19 22 - Comments only - Lolly Oliveira MD - Not too much of an issue recently . She does keep albutero l inhaler availabl e if needed. Problem Code: 493.90; Problem Code Type: ICD-9; Not Available [facility] 3 04:[facility] Atypical glandula r cells on cervical Papanico laou smear 458763537 Active 2007 Problem Code: 795.00; Problem Code Type: ICD-9; Not Available [facility] 3 04:01:51 Dizzines s and giddines s 960623594 Active 201404/14/19 22 - Comments only - Lolly Oliveira MD - , Intermit tent. She has learned to deal with it using the Jd's maneuver . She will call if any signific ant worsenin g. Problem Code: R42; Problem Code Type: ICD-10; Not Available [facility] 3 04:01:52 Essentia l hyperten pura 18645315 Active 201401/12/20 22 - Comments only - Lolly Oliveira MD - Blood pressure well controll ed with the lisinopr il and Toprol. Problem Code: I10; Problem Code Type: ICD-10; Not Available [facility] 3 04:01:52 Adult health examinat ion Active 201504/16/19 23 - Comments only - Lolly Oliveira MD - UTD with mammo, has a DEXA schedule d ( dx of osteopor osis), will check an A1c. Problem Code: Z00.00; Problem Code Type: ICD-10; Not Available [facility] 3 04:01:52 Disorder of skin and/or subcutan eous tissue 68417985 Active 201509/17/19 16 - Comments only - Lolly Oliveira MD - the lesions on the buttucks appear to have been possible boils that are now healing vs atopic rxn resolvin g. At this point no tx needed. If worsenin g/recurr ing she will call. I don't believe these are related to rubbing while walking Problem Code: L98.9; Problem Code Type: ICD-10; Not Available [facility] 3 04:01:52 Pain in right hip joint 92949952927 9102 Completed 201512/02/2022 Problem Code: M25.551; Problem Code Type: ICD-10; Not Available [facility] 3 04:01:52 Onychomy cosis due to dermatop hyte 016775176 Active 201609/23/19 17 - Comments only - Lolly Oliveira MD - she is going to contact podiatry to find out if they have any other topical txs that might work. She is not interest ed in systemic tx Problem Code: B35.1; Problem Code Type: ICD-10; Not Available [facility] 3 04:01:52 Hearing loss of right ear 065536886 Completed 201712/10/2017 11/27/19 18 - Comments only - Naseem Gil PA-C - Cerumino sis treated in-offic e today. If hearing fails to be fully restored over the course of the weekend, will consider for ENT refer for formal audiolog y assessme nt. Problem Code: H91.91; Problem Code Type: ICD-10; Not Available [facility] 3 04:01:52 Abnormal weight gain 358005437 Active 2018 Problem Code: R63.5; Problem Code Type: ICD-10; Not Available [facility] 3 04:01:53 Disorder of hip joint 955100725 Active 201801/12/20 22 - Comments only - Lolly Oliveira MD - ,rt. For which she would like a total hip replacem ent. 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 She is trying to continue being as mobile as she can comforta silva. Problem Code: M12.859; Problem Code Type: ICD-10; Not Available [facility] 3 04:01:53 Acute vaginiti s 88307084 Completed 201801/04/2019 12/22/19 19 - Comments only - Naseem Gil PA-C - Will await resutls of today's collecte d VPS to determin e indicati on for further treatmen t. Problem Code: N76.0; Problem Code Type: ICD-10; Not Available [facility] 3 04:01:53 Intertri go 46644838 Completed 201801/04/2019 12/22/19 19 - Comments only - Naseem Gil PA-C - Patient encourag ed to keep skin folds as clean and dry as possible to avoid reactiva tion (suggest ed inspector hairspring truing after bathing) . Addition ally, could consider to use OTC DESITIN for acute skin healing. Problem Code: L30.4; Problem Code Type: ICD-10; Not Available [facility] 3 04:01:53 Pre-surg cecilia evaluati on Completed 201801/23/2019 01/10/20 19 - Comments only - Naseem Gil PA-C - Today's EKG shows stable LBBB (compare d to study 10/19/14) with NSR at 69bpm. Patient to f/u for pre-oper ative laborato ry testing and anesthes ia consult as schedule d 01/17/19 . Problem Code: Z01.818; Problem Code Type: ICD-10; Not Available [facility] 3 04:01:53 Hip joint prosthes is present 944734146 Active 2018 Problem Code: Z96.642; Problem Code Type: ICD-10; Not Available [facility] 3 04:01:53 Dyspnea 178232173 Completed 201903/27/2019 03/13/19 20 - Comments only [...] R06.02; Problem Code Type: ICD-10; Not Available [facility] 3 04:01:54 Edema 034535639 Completed 201906/21/2019 06/07/19 20 - Comments only - Naseem Gil PA-C - Patient reassure d nothing concerni ng on today's PX to raise suspicio n for DVT. Suspect minor calf muscle strain. OK to continue to use compress ion stocking s for symtpoma tic relief and consider calf stretche s. F/U PRN. Problem Code: R60.9; Problem Code Type: ICD-10; Not Available [facility] 3 04:01:54 Headache 59399178 Active 2020 Problem Code: R51.9; Problem Code Type: ICD-10; Not Available [facility] 3 04:01:54 Guttate psoriasi s 42256895 Active 202004/16/19 23 - Comments only - Lolly Oliveira MD - being followed by mika mercado under reasonab le control with the UV tx and prn clobetas ol cream Problem Code: L40.4; Problem Code Type: ICD-10; Not Available [facility] 3 04:01:54 Stool finding 170862553 Active 2021 Problem Code: R19.5; Problem Code Type: ICD-10; Not Available [facility] 3 04:01:54 Speciali zed medical examinat ion Active 2021 Problem Code: Z01.89; Problem Code Type: ICD-10; Not Available [facility] 3 04:01:54 Edema 056135030 Active 2021 Problem Code: R60.9; Problem Code Type: ICD-10; Not Available [facility] 3 04:01:55 Screenin g mammogra phy Active 2021 Problem Code: Z12.31; Problem Code Type: ICD-10; Not Available [facility] 3 04:01:55 Abnormal finding on evaluati on procedur e 137031391 Active 2021 Problem Code: R89.9; Problem Code Type: ICD-10; Not Available [facility] 3 04:01:55 Dyspnea 174367479 Active 2021 Problem Code: R06.02; Problem Code Type: ICD-10; Not Available [facility] 3 04:01:55 Cardiomy opathy 27857641 Active 202109/05/19 23 - Comments only - Lolly Oliveira MD - Clinical ly remainin g stable on the lisinopr il, furosemi de 20 mg daily, Jardianc e, Toprol, rosuvast atin, aspirin. ICD/pace maker in place. Followin g with cardiolo gy. She is walking/ exercisi ng regularl y. Problem Code: I42.9; Problem Code Type: ICD-10; Not Available [facility] 3 04:01:55 Heart failure 03934500 Active 2021 Problem Code: I50.9; Problem Code Type: ICD-10; Not Available [facility] 3 04:01:56 Family history of breast cancer 755072945 Active 2021 Problem Code: Z80.3; Problem Code Type: ICD-10; Not Available [facility] 3 04:01:56 Burn 575090301 Active 202101/12/20 22 - Comments only - Lolly Oliveira MD - Healing slowly, no evidence of infectio n. If she has any further question s regardin g this she will let us know. Problem Code: T30.0; Problem Code Type: ICD-10; Not Available [facility] 3 04:01:56 Senile osteopor osis 81989849 Active 202101/12/20 22 - Comments only - Lolly Oliveira MD - Due for a repeat DEXA scan. Ordered. She does take an over-the -counter vitamin D suppleme nt I believe. Problem Code: M81.0; Problem Code Type: ICD-10; Not Available [facility] 3 04:01:56 Hyperlip idemia 98666750 Active 202204/16/19 23 - Comments only - Lolly Oliveira MD - will check LFTs, CPK, on rosuvast atin 5mg daily which has brought her lipids into goal range. Problem Code: E78.5; Problem Code Type: ICD-10; Not Available [facility] 3 04:01:56 Adjustme nt disorder 71097322 Active 2022 Problem Code: F43.20; Problem Code Type: ICD-10; Not Available [facility] 3 04:01:56 Dysuria 15411267 Active 2022 Problem Code: R30.9; Problem Code Type: ICD-10; Not Available [facility] 3 04:01:57 Itching of skin 583166792 Active 2022 Problem Code: L29.8; Problem Code Type: ICD-10; Not Available [facility] 3 04:01:57 Automati c implanta ble cardiac defibril lator in situ 593730650 Active 2022 Problem Code: Z95.810; Problem Code Type: ICD-10; Not Available [facility] 3 04:01:57 Glycosur ia 70087553 Active 202209/05/19 23 - Comments only - Lolly Oliveira MD - , No prior diagnosi s of diabetes . She is developi ng diabetes that could be number perineal symptoms . 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 932197273 Active 202209/05/19 23 - Comments only - [...] N90.89; Problem Code Type: ICD-10; Not Available [facility] 3 04:01:57 Allergic contact dermatit is 878217459 Completed 202012/02/2022 Problem Code: L23.9; Problem Code Type: ICD-10; Not Available [facility] 3 04:02:02 Essalma delia l hyperten pura 38408438 Completed 200107/25/2015 Problem Code: 401.9; Problem Code Type: ICD-9; Not Available [facility] 3 04:02:03 Polyp of colon 03101746 Completed 201006/05/2021 Problem Code: K63.5; Problem Code Type: ICD-10; Not Available [facility] 3 04:02:03 History of vertigo 636310093 Completed 201012/02/2022 01/11/20 15 - Improved - Lolly Oliveira MD - she will continue with Jd's manoever PRN and call if worsenin g/nothigrayson g helping Not Available [facility] 3 04:02:04 Acute sinusiti s 51670617 Completed 201912/16/2020 Problem Code: J01.90; Problem Code Type: ICD-10; Not Available [facility] 3 04:02:05 Pain of right lower leg 50622359893 9108 Completed 202101/11/2022 Problem Code: M79.661; Problem Code Type: ICD-10; Not Available [facility] 3 04:02:06 Hyperlip idemia 57737073 Completed 200910/19/2017 Not Available [facility] 3 04:02:07 Dizzines s and giddines s 995627051 Completed 201408/14/2019 Problem Code: R42; Problem Code Type: ICD-10; Not Available [facility] 3 04:02:07 Hyperten sive disorder 83569603 Completed 201011/03/2018 Not Available [facility] 3 04:02:09 Diarrhea 30367209 Completed 201610/19/2017 Problem Code: R19.7; Problem Code Type: ICD-10; Not Available [facility] 3 04:02:10 Anemia 951687749 Completed 201901/11/2022 Problem Code: D64.9; Problem Code Type: ICD-10; Not Available [facility] 3 04:02:10 [place] - lesion 755084631 Active 2022 Problem Code: L84; Problem Code Type: ICD-10; Not Available [facility] 4 05:37:51 Foot callus 384777500 Active [address], [place] [address] , [facility] 4 11:29:32 Onychomy cosis 378880297 Active [address], [address] 4 11:29:44 Vertigo 900385697 Active [address], [address] 4 13:20:57 Impacted cerumen of bilatera l ears 28901979181 89353 Active [address], [address] 4 13:21:03 Notes:*Problem Name: Colonos copy 2006 - Hyperplastic Polyp *ICD-10 Codes: *Problem Status: inactive *Comments: *Note Date: 04/29/2010 *Problem Name: Rt Breast Bx 2014 - Adenosis *ICD-10 Codes: *Problem Status: active *Comments: *Note Date: 08/01/2013 Problem Notes None recorded. Procedures Surgical History Date Name Laterality Status Provider Name and Address Organization Details Recorded Time 4 Cerumen Removal completed NATHAN HERNANDEZ Dr, [address] 09/01/2023 13:52:38 3 total replacement of right hip joint completed Cornelia Lizarraga [facility] 03/31/2023 17:11:24 Imaging Results None recorded. Procedure Notes None recorded. Medical Equipment None Reported. Allergies Allergen ID Allergen Name Allergen Category Reaction Reaction Severity Criticality Documentation Date Start Date Code Code System Note Provider Name and Address Organization Details Recorded Time 90605 sulfadiaz ine medicatio n tachycard ia mild Not available 01/15/20232001 98568 RxNorm Tachy cardi a Not Available [facility] 16:22:29 Medications Name Sig Start Date Stop Date Status Note LastModified by Organization Details LastModified Time Prescriptio n - Renewal 11/25 completed med rf[Rx Rsp] Not Available Not Available Not Available celecoxib 200 mg capsule TAKE ONE CAPSULE [...] Not Available Caltrate 600-D Plus Minerals 600 mg-10 mcg (400 unit) tablet Take 1 tab by mouth daily [...] Not Available Not Available Not Avai lable loratadine 10 mg capsule Take 1 capsule as needed by oral route. active Not Available Not Available No t Available Jardiance 10 mg tablet TAKE ONE TABLET [...] Updated DateTime 4 159.385 cm 38.7 kg/m2 65779.8 2 g 97.1 [degF] 17 /min 95 % 95 % 60 /min 139 mm[Hg] 69 mm[Hg] Vonda Fields RN [facility] 4 12:25:13 Social History Question Answer Notes LastModified by Organizat ion Details LastModified Time Tobacco Smoking Status Never Smoker Davey Allen MA null, [facility] 05/21/2023 10:57:21 Would You Say That, In General, Your Health Is Very Good [email or web address] Information not available 05/21/2023 How Often Does Anyone, Including Family, Physically Hurt You? Never [email or web address] Information not available 05/21/2023 How Often Does Anyone, Including Family, Insult Or Talk Down To You? Never [email or web address] Information no t available 05/21/2023 How Often Does Anyone, Including Family, Threaten You With Harm? Never [email or web address] Information not available 05/21/2023 How Often Does Anyone, Including Family, Scream Or Curse At You? Never [email or web address] Information not available 05/21/2023 Within The Past 12 Months, You Worried That Your Food Would Run Out Before You Got Money To Buy More. Never True [email or web address] Information n ot available 05/21/2023 Within The Past 12 Months, The Food You Bought Just Didn't Last And You Didn't Have Money To Get More. Never True [email or web address] Information n ot available 05/21/2023 How Hard Is It For You To Pay For The Very Basics Like Food, Housing, Medical Care, And Heating? Would You Say It Is: Not Hard At All [email or web address] Information not available 05/21/2023 In The Past 12 Months, Has Lack Of Reliable Transportation Kept You From Medical Appointments, Meetings, Work Or From Getting Things Needed For Daily Living? No [email or web address] Information not available 05/21/2023 What Is Your Housing Situation Today? I Have Housing. Information not available 05/21/2023 How Often In The Past Year Have You Used Marijuana (including Smoking, Vaping, Dabbing, Or Edibles)? Never [email or web address] Information not available 05/21/2023 How Often In The Past Year Have You Used Prescription Medications That Were Not Prescribed To You? Never [email or web address] Information n ot available 05/21/2023 How Often In The Past Year Have You Taken Your Own Prescription Medication More Than The Way It Was Prescribed Or For Different Reasons Than Its Intended Purpose? Never [email or web address] Information no t available 05/21/2023 How Often In The Past Year Have You Used Other Drugs (for Example, Heroin, Cocaine, Meth, Salvia, Inhalants)? Never [email or web address] Information not available 05/21/2023 Have You Ever Used IV Drugs? No [email or web address] Information not available 05/21/2023 What Matters Most To You? Staying Healthy, Keeping Active. Getting Exercise And Losing Some Weight [email or web address] Information not available 05/21/2023 During The Past Four Weeks Has Your Physical And Emotional Health Limited Your Social Activities With Family And Friends, Neighbors, Or Groups? Not At All Information not available 05/21/2023 During The Past Four Weeks, Was Someone Available To Help You If You Needed And Wanted Help? (For Example, If You Reading Very Nervous, Lonely, Or Blue; Got Sick And Had To Stay In Bed; Needed Someone To Talk To; Needed Help With Daily Chores; Or Needed Help Just Taking Care Of Yourself.) No- Not At All [email or web address] Information n ot available 05/21/2023 During The Past Four Weeks, What Was The Hardest Physical Activity You Could Do For At Least 2 Minutes? Moderate [email or web address] Information not available 05/21/2023 Can You Get To Places Out Of Walking Distance Without Help? (For Example, Can You Travel Alone On Buses Or Taxis, Or Drive Your Own Car?) Yes [email or web address] Information not available 05/21/2023 Can You Go Shopping For Groceries Or Clothes Without Someone? s Help? Yes [email or web address] Information not available 05/21/2023 Can You Prepare Your Own Meals? Yes [email or web address] Information not available 05/21/2023 Can You Do Your Housework Without Help? Yes [email or web address] Information not available 05/21/2023 Because Of Any Health Problems, Do You Need The Help Of Another Person With Your Personal Care Needs Such As Eating, Bathing, Dressing, Or Getting Around The House? No [email or web address] Information not available 05/21/2023 Can You Handle Your Own Money Without Help? Yes [email or web address] Information not available 05/21/2023 Are You Having Difficulties Driving Your Car? No [email or web address] Information no t available 05/21/2023 Do You Always Fasten Your Seat Belt When You Are In A Car? Yes- Usually [email or web address] Information not available 05/21/2023 How Often During The Past Four Weeks Have You Been Bothered By Any Of The Following Problems? Falling Or Dizzy When Standing Up? Never [email or web address] Information not available 05/21/2023 Sexual Problems? Never [email or web address] Informat ion not available 05/21/2023 Trouble Eating Well? Sometimes Information not available 05/21/2023 Teeth Or Denture Problems? Sometimes [email or web address] Information not available 05/21/2023 Problems Using The Telephone? Never Information not available 05/21/2023 Tiredness Or Fatigue? Sometimes [email or web address] Information not available 05/21/2023 Have You Had 2 Or More Falls Or Sustained An Injury With A Fall In The Last Year? No [email or web address] Information no t available 05/21/2023 Do You Have Difficulty With Walking Or Balance? No Information not available 05/21/2023 Do You Currently Use A Hearing Device? No [email or web address] Information not available 05/21/2023 Do You Currently Have Any Trouble With Your Vision? Yes Information no t available 05/21/2023 Do You Exercise For About 20 Minutes Three Or More Days A Week? Yes- Most Of The Time [email or web address] Information not available 05/21/2023 Are There Any Safety Concerns In Your Home (see Attached [facility] Pamphlet)? No [email or web address] Information not available 05/21/2023 How Often Do You Have Trouble Taking Medicines The Way You Have Been Told To Take Them? I Always Take Them As Prescribed [email or web address] Information not available 05/21/2023 How Confident Are You That You Can Control And Manage Most Of Your Health Problems? Very Confident [email or web address] Information not available 05/21/2023 Do You Currently Have Any Difficulty With Your Hearing? No Information not available 05/21/2023 Date Of Most Recent SBINS 05/21/2023 [email or web address] Information not available 05/21/2023 What Was The Date Of Your Most Recent Tobacco Screening? 09/01/2023 Information not available 09/01/2023 Has Tobacco Cessation Counseling Been Provided? Yes Information not available 09/01/2023 On What Date Was Tobacco Cessation Counseling Provided? 09/01/2023 Information not available 09/01/2023 Do You Or Have You Ever Used Any Other Forms Of Tobacco Or Nicotine? No [email or web address] Information not available 05/21/2023 Sex: Female Functional Status None recorded. Mental Status None recorded. Family History Relationship Description Onset Age of this Age Resolved Age Notes LastModified by Organization Details LastModified Time Sister Family history of Hypertension [email or web address] Not available 12/2022 03:57:11 Sister Family history of breast cancer [email or web address] Not available 2022 03:57:12 Brother Family history of diabetes mellitus type 1 [email or web address] Not available 2022 03:57:12 Notes:*Problem: updated 2021 Mother: at 79 - CHF, COPD, S/P pacemaker due to rhythm abnormalities. Father: at 94y/o from DVT, HTN, h/o blood clots- was on warfarin but then got a brain bleed, ended up with a [place] filter. Brother - Agent orange exposure SISTER [...] preservative free, adsorbed 11/03/2018 completed Not Available [facility] 01/15/2023 04:53:39 Tdap 04/12/2007 completed Not Available [facility] 04:53:39 zoster live 06/16/2012 completed Not Available [facility] 01/15/2023 04:53:40 Pneumococcal conjugate PCV 13 09/17/2015 completed Not Available [facility] 01/15/2023 04:53:40 Influenza, high-dose, trivalent, PF 11/26/2017 completed Not Available [facility] 01/15/2023 04:53:41 Td(adult) unspecified formulation 09/30/1992 completed Not Available [facility] 01/15/2023 04:53:41 Influenza, split virus, trivalent, preservative 11/28/2015 completed Not Available [facility] 01/15/2023 04:53:41 Influenza, split virus, trivalent, preservative 01/04/2015 completed Not Available [facility] 01/15/2023 04:53:41 Influenza, split virus, quadrivalent, PF 12/21/2018 completed Not Available [facility] 01/15/2023 04:53:41 zoster recombinant 08/30/2018 completed Not Available [facility] 01/15/2023 04:53:42 zoster recombinant 01/26/2018 completed Not Available [facility] 01/15/2023 04:53:42 Influenza, high-dose, quadrivalent, PF 12/04/2020 completed Not Available [facility] 01/15/2023 04:53:43 Influenza, high-dose, quadrivalent, PF 12/11/2019 completed Not Available [facility] 01/15/2023 04:53:43 Influenza, high-dose, quadrivalent, PF 12/29/2021 completed Not Available [facility] 01/15/2023 04:53:43 COVID-19, mRNA, LNP-S, PF, 100 mcg/0.5mL dose or 50 mcg/0.25mL dose 07/09/2021 completed Not Available [facility] 01/15/2023 04:53:43 COVID-19 vaccine, vector-nr, [id number], PF, 0.5 mL 05/02/2020 completed Not Available [facility] 01/15/2023 04:53:44 SARS-COV-2 (COVID-19) vaccine, UNSPECIFIED 05/31/2020 completed Not Available [facility] 01/15/2023 04:53:44 SARS-COV-2 (COVID-19) vaccine, UNSPECIFIED 01/03/2021 completed Not Available [facility] 01/15/2023 04:53:44 pneumococcal polysaccharide PPV23 07/05/2014 completed Not Available [facility] 2022 04:53:45 Hep B, unspecified formulation 04/14/1993 completed Not Available [facility] 01/15/2023 04:53:45 Hep B, unspecified formulation 09/30/1992 completed Not Available [facility] 01/15/2023 04:53:46 Hep B, unspecified formulation 10/31/1992 completed Not Available [facility] 01/15/2023 04:53:46 influenza, unspecified formulation 12/11/2009 completed Not Available [facility] 01/15/2023 04:53:47 influenza, unspecified formulation 12/13/2012 completed Not Available [facility] 01/15/2023 04:53:47 influenza, unspecified formulation 12/18/2008 completed Not Available [facility] 01/15/2023 04:53:47 influenza, unspecified formulation 12/19/2010 completed Not Available [facility] 01/15/2023 04:53:47 influenza, unspecified formulation 12/30/2006 completed Not Available [facility] 01/15/2023 04:53:48 influenza, unspecified formulation 01/09/2014 completed Not Available [facility] 01/15/2023 04:53:48 influenza, unspecified formulation 01/26/2008 completed Not Available [facility] 01/15/2023 04:53:48 influenza, unspecified formulation 02/16/2012 completed Not Available [facility] 01/15/2023 04:53:48 Influenza, high-dose, quadrivalent, PF 12/17/2022 completed Not Available [facility] 03/19/2023 05:33:03 COVID-19, mRNA, LNP-S, PF, herminio-sucrose, 30 mcg/0.3 mL 12/28/2022 completed Not Available [email or web address] 03/19/2023 05:33:03 Past Encounters Encounter ID Performer Location Encounter Start Date Encounter Closed Date Diagnosis/Indication Diagnosis SNOMED-CT Code Diagnosis ICD10 Code [id number] [address] [place] [address] 09/01/2023 10:23:16 09/01/2023 13:28:10 Vertigo 327330916 R42 Impacted c erumen of bilateral ears [id number] 565285 H61.23 Health Concerns Section Related Observation LastModified by Organization Detai ls LastModified Time None Recorded Concern Status LastModified by Organization Details LastModified Time None Recorded Payers Encounter Date Sequence Insurance Name Policy Number Policy Lema Covered Member ID Lema Member ID Guarantor Name 09/01/2023 1 [id number] (MEDIC[place]/ [place]ANTAGE - PPO) [id number] Luna Mott [id number] Luna Mott Notes Date Note Type [...] the name of it. [address], [place], [address], [facility]. 09/01/2023 13:55:07 OBGyn Episode No OBEpisode recorded.
--- OUTSIDE RECORDS SUMMARY | 2023-11-26 10:44 | XMS_ITS | Referral Summary ---
Author Organization [facility] Address [address] [place] [address] Care Team Providers Care Battery Engineer Name Role Phone Lolly Oliveira MD Primary Care Provider [phone] Social History Tobacco Use Types Packs/Day Years Used Date Smoking Tobacco: Never Assessed Sex and Gender Information Value Date Recorded Sex Assigned at Not on file Gender Identity Not on file Sexual Orientation Not on file Plan of Treatment Not on file Care Teams Battery Engineer Relationship Specialty Start Date End Date Lolly Oliveira MD [address] [place] [address] PCP - General 11/13/08
--- OUTSIDE RECORDS SUMMARY | 2023-11-26 10:44 | XMS_ITS | Data Portability ---
Author Organization [place] [facility], [facility] Address [place] [address] Care Team Providers Care Veneer Redrier Name Role Phone [facility] OFFICE Optometris t ZAMZAM BOSS Supervisor Show Operations JAYCOB KHAN Orthopedic Surgeon [phone] ROXANA KELLEY Doll Wig Maker FLOWER RAMSEY Dentist [phone] Assessment Encounter Date Assessment Date Assessment LastModified [...] copy of PPP at conclusion of visit. [email or web address] Not available 04/20/2023 07:44:20 Plan of Treatment Reminders Order Date Submit Date Provider Last Modified By Organization Details Last Modified Time Details Appointments Follow Up 2023 07:30A M Not available Not available Not available Medicare Annual Wellness 40 2024 07:30A M Not available Not available Not available Lab None recorded. Referral podiatris t referral 2023 024 [email or web address] [facility], [address], [place], [address], 09/24/2023 13:45:43 physical therapist referral 2023 024 Chinedu Amato PT, [address], [place], [address], 10/18/2023 12:01:58 Procedures None recorded. Surgeries None recorded. Imaging None recorded. Medication Orders Jardiance 10 mg tablet 2023 024 [facility], [address] [place] [address], [id number], 05/24/2023 18:32:26 lisinopri l 20 mg tablet 2023 024 [facility], [address] [place] [address], [id number], 05/24/2023 18:32:26 meclizine 25 mg tablet 2023 024 [facility], [address] [place] [address], [id number], 09/01/2023 13:22:14 Patient TargetsNo targets recorded. Patient Instructions Encounter Date Encounter Id Patient Instructions Last Modified By Organization Details Last Modified Time 05/21/2023 [id number] Discussed and explained advance directives such as standard forms to the {{patient caregiv er patient and caregiver}}. Face to face discussion lasted for a duration of ___ minutes. [email or web address] Not available 04/20/2023 07:44:20 09/01/2023 [id number] 1. The earwax from your ears were [...] Not available 09/01/2023 13:23:33 Reason for Referral Heel Emery Buffer Referral for Onyc homycosis onychomycosis, calluses Referring Physician: Ju Cortez, [facility], Encounter Date: 05/21/2023 Physical Therapist Referral for Vertigo Referring Physician: Jessica Ingram, [facility], Encounter Date: 09/01/2023 Results Created Date Observation Date Name Description Value Unit Range Abnormal Flag Note LastModifiedBy Organization Detail LastModifiedTime 05/03/19 24 05/03/2023 ultra sound imagi ng repor t Patiaustin t Name: Naomi Mott Unit #: [id number] Loc: DI Orderi ng Provid er: Lalit Mcmahon M.D. Accoun t #: [id number] Status : REG CLI Primar y Care Provid er: Janice Pérez M.D. 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 Thank- you. rod [address] [place], [address] 05/03/2023 18:12:07 05/13/1905/13/2023 elect eric robertson am EKG ASHLEY T NAME: Naomi Mott UNIT #: [id number] ORDERI NG PROVID ER: Lalit Mcmahon M.D. ACCOUN T #: [id number] PRIMAR Y CARE PROVID ER: JUSTYN Suresh MD, JU DATE/T DONNA OF SE RVICE: 1252 : 1950 KELSI JOÃO LOCATI ON: DI.CAR D ------ ------ --- APPROV ED REPORT ------ ------ -- Exam: Restin g ECG Reason for Exam: LBBB, CMP Ashley wasserman Locati on: O HR:73 bpm ECG Measur ements Heart Rate 73 AXIS MT 27 P 111 QRSd 115 QRS 80 [...] ------ - E-Sign Date: E-Sign Time: [address] [place], [address] 09/13/2023 15:45:54 06/28/19 24 01/12/2023 x-ray imagi ng repor t Patien t Name: Naomi Mott Unit #: [id number] Loc: ALIZA Orderi ng Provid er: Karan Freire M.D. Accoun t #: [id number] Status : DEP [facility] Primar y Care Provid er: Janice Pérez [...] ion exposu re index/ cumula tive dose: Ka,r= 9.9256 mGy DATA REPOSI TORY: RADIAT ION DOSE DELIVE RED: Ordere d By: Karan Freire M.D. CC: ------ ------ ------ ------ ------ ------ ------ ------ ------ ------ ------ ------ - Dictat ed By: Ulises Hurst M.D. 1401 1401 Transc ribed By: Aris MENDOZA,Marcia murrell 140 [...] the addres s above. Thank- you. rod [facility] [address], [place], [address] 06/29/2023 07:24:17 11/22/19 24 04/16/2022 bone densi ty No observ ation record ed. Not Available 11/21 06:38:46 11/22/19 24 09/02/2020 MAMMO , scree milagro No observ ation record ed. Not Available 11/21 06:38:51 11/22/19 24 11/10/2022 MAMMO , scree milagro No observ ation record ed. Not Available 11/21 06:38:52 11/22/19 24 10/27/2021 XR, chest No observ ation record ed. Not Available 11/21 06:38:53 11/22/19 24 11/05/2021 MAMMO , scree milagro No observ ation record ed. Not Available 11/21 06:38:55 11/22/19 24 11/28/2018 MAMMO , scree milagro No observ ation record ed. Not Available 11/21 06:38:57 11/22/19 24 01/25/2019 imagi ng/di agnos tic resul t No observ ation record ed. Not Available 11/21 06:39:02 11/22/19 24 02/09/2019 imagi ng/di agnos tic resul t No observ ation record ed. Not Available 11/21 06:39:03 11/22/19 24 09/29/2018 imagi ng/di agnos tic resul t No observ ation record ed. Not Available 11/21 06:39:04 11/22/1912/09/2018 imagi ng/di agnos tic resul t No observ ation record ed. Not Available 11/21 06:39:05 11/22/1901/12/2023 imagi ng/di agnos tic resul t No [...] and Address Organization Details Recorded Time Asthma 466332302 Active 200204/14/19 22 - Comments only - Ju Cortez MD - Not too much of an issue recently . She does keep albutero l inhaler availabl e if needed. Problem Code: 493.90; Problem Code Type: ICD-9; Not Available [facility] 3 04:01:51 Atypical glandula r cells on cervical Papanico laou smear 010708865 Active 2007 Problem Code: 795.00; Problem Code Type: ICD-9; Not Available [facility] 3 04:01:51 Dizzines s and giddines s 954123172 Active 201404/14/19 22 - Comments only - Ju Cortez MD - , Intermit tent. She has learned to deal with it using the Jd's maneuver . She will call if any signific ant worsenin g. Problem Code: R42; Problem Code Type: ICD-10; Not Available [facility] 3 04:01:52 [facility] hyperten karlene 55015781 Active 201401/12/20 22 - Comments only - Ju Cortez MD - Blood pressure well controll ed with the lisinopr il and Toprol. Problem Code: I10; Problem Code Type: ICD-10; Not Available [facility] 3 04:01:52 Adult health examinat ion Active 201504/16/19 23 - Comments only - Ju Cortez MD - UTD with mammo, has a DEXA schedule d ( dx of osteopor osis), will check an A1c. Problem Code: Z00.00; Problem Code Type: ICD-10; Not Available [facility] 04:01:52 Disorder of skin and/or subcutan eous tissue 38961274 Active 201509/17/19 16 - Comments only - Ju Cortez MD - the lesions on the buttucks appear to have been possible boils that are now healing vs atopic rxn resolvin g. At this point no tx needed. If worsenin g/recurr ing she will call. I don't believe these are related to rubbing while walking Problem Code: L98.9; Problem Code Type: ICD-10; Not Available [facility] 04:01:52 Pain in right hip joint 02525983855 9102 Completed 201512/02/2022 Problem Code: M25.551; Problem Code Type: ICD-10; Not Available [facility] 3 04:01:52 Onychomy cosis due to dermatop hyte 053464074 Active 201609/23/19 17 - Comments only - Ju Cortez MD - she is going to contact podiatry to find out if they have any other topical txs that might work. She is not interest ed in systemic tx Problem Code: B35.1; Problem Code Type: ICD-10; Not Available [facility] 3 04:01:52 Hearing loss of right ear 207536971 Completed 201712/10/2017 11/27/19 18 - Comments only - Naseem Gil PA-C - Cerumino sis treated in-offic e today. If hearing fails to be fully restored over the course of the weekend, will consider for ENT refer for formal audiolog y assessme nt. Problem Code: H91.91; Problem Code Type: ICD-10; Not Available [facility] 04:01:52 Abnormal weight gain 939850905 Active 2018 Problem Code: R63.5; Problem Code Type: ICD-10; Not Available [facility] 3 04:01:53 Disorder of hip joint 582507914 Active 201801/12/20 22 - Comments only - Ju Cortez MD - ,rt. For which she would like a total hip replacem ent. 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 She is trying to continue being as mobile as she can comforta silva. Problem Code: M12.859; Problem Code Type: ICD-10; Not Available [facility] 3 04:01:53 Acute vaginiti s 54835091 Completed 201801/04/2019 12/22/19 19 - Comments only - Naseem Gil PA-C - Will await resutls of today's collecte d VPS to determin e indicati on for further treatmen t. 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 Addition ally, could consider to use OTC DESITIN for acute skin healing. Problem Code: L30.4; Problem Code Type: ICD-10; Not Available [facility] 3 04:01:53 Pre-surg cecilia evaluati on Completed 201801/23/2019 01/10/20 19 - Comments only - Naseem Gil PA-C - Today's EKG shows stable LBBB (compare d to study 10/19/14) with NSR at 69bpm. Patient to f/u for pre-oper ative laborato ry testing and anesthes ia consult as schedule d 01/17/19 . Problem Code: Z01.818; Problem Code Type: ICD-10; Not Available [facility] 3 04:01:53 Hip joint prosthes is present 245768005 Active 2018 Problem Code: Z96.642; Problem Code Type: ICD-10; Not Available [facility] 3 04:01:53 Dyspnea 894381050 Completed 201903/27/2019 03/13/19 20 - Comments only [...] R06.02; Problem Code Type: ICD-10; Not Available [facility] 3 04:01:54 Edema 860827011 Completed 201906/21/2019 06/07/19 20 - Comments only - Naseem Gil PA-C - Patient reassure d nothing concerni ng on today's PX to raise suspicio n for DVT. Suspect minor calf muscle strain. OK to continue to use compress ion stocking s for symtpoma tic relief and consider calf stretche s. F/U PRN. Problem Code: R60.9; Problem Code Type: ICD-10; Not Available [facility] 3 04:01:54 Headache 58229666 Active 2020 Problem Code: R51.9; Problem Code Type: ICD-10; Not Available [facility] 3 04:01:54 Guttate psoriasi s 76338214 Active 202004/16/19 23 - Comments only - Ju Cortez MD - being followed by mika mercado under reasonab le control with the UV tx and prn clobetas ol cream Problem Code: L40.4; Problem Code Type: ICD-10; Not Available [facility] 3 04:01:54 Stool finding 710688741 Active 2021 Problem Code: R19.5; Problem Code Type: ICD-10; Not Available [facility] 3 04:01:54 Speciali zed medical examinat ion Active 2021 Problem Code: Z01.89; Problem Code Type: ICD-10; Not Available [facility] 3 04:01:54 Edema 319636608 Active 2021 Problem Code: R60.9; Problem Code Type: ICD-10; Not Available [facility] 3 04:01:55 Screenin g mammogra phy Active 2021 Problem Code: Z12.31; Problem Code Type: ICD-10; Not Available [facility] 3 04:01:55 Abnormal finding on evaluati on procedur e 503804477 Active 2021 Problem Code: R89.9; Problem Code Type: ICD-10; Not Available [facility] 3 04:01:55 Dyspnea 949142880 Active 2021 Problem Code: R06.02; Problem Code Type: ICD-10; Not Available [facility] 3 04:01:55 Cardiomy opathy 56993203 Active 202109/05/19 23 - Comments only - Ju Cortez MD - Clinical ly remainin g stable on the lisinopr il, furosemi de 20 mg daily, Jardianc e, Toprol, rosuvast atin, aspirin. ICD/pace maker in place. Followin g with cardiolo gy. She is walking/ exercisi ng regularl y. Problem Code: I42.9; Problem Code Type: ICD-10; Not Available [facility] 3 04:01:55 Heart failure 36360237 Active 2021 Problem Code: I50.9; Problem Code Type: ICD-10; Not Available [facility] 3 04:01:56 Family history of breast cancer 833898845 Active 2021 Problem Code: Z80.3; Problem Code Type: ICD-10; Not Available [facility] 3 04:01:56 Burn 739692348 Active 202101/12/20 22 - Comments only - Ju Cortez MD - Healing slowly, no evidence of infectio n. If she has any further question s regardin g this she will let us know. Problem Code: T30.0; Problem Code Type: ICD-10; Not Available [facility] 3 04:01:56 Senile osteopor osis 23045387 Active 202101/12/20 22 - Comments only - Ju Cortez MD - Due for a repeat DEXA scan. Ordered. She does take an over-the -counter vitamin D suppleme nt I believe. Problem Code: M81.0; Problem Code Type: ICD-10; Not Available [facility] 3 04:01:56 Hyperlip idemia 08227881 Active 202204/16/19 23 - Comments only - Ju Cortez MD - will check LFTs, CPK, on rosuvast atin 5mg daily which has brought her lipids into goal range. Problem Code: E78.5; Problem Code Type: ICD-10; Not Available [facility] 3 04:01:56 Adjustme nt disorder 09605993 Active 2022 Problem Code: F43.20; Problem Code Type: ICD-10; Not Available [facility] 3 04:01:56 Dysuria 81987385 Active 2022 Problem Code: R30.9; Problem Code Type: ICD-10; Not Available [facility] 3 04:01:57 Itching of skin 551766368 Active 2022 Problem Code: L29.8; Problem Code Type: ICD-10; Not Available [facility] 3 04:01:57 Automati c implanta ble cardiac defibril lator in situ 788086191 Active 2022 Problem Code: Z95.810; Problem Code Type: ICD-10; Not Available [facility] 3 04:01:57 Glycosur ia 24301145 Active 202209/05/19 23 - Comments only - Ju Cortez MD - , No prior diagnosi s of diabetes . She is developi ng diabetes that could be number perineal symptoms . 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 156538771 Active 202209/05/19 23 - Comments only - [...] N90.89; Problem Code Type: ICD-10; Not Available [facility] 3 04:01:57 Allergic contact dermatit is 198429210 Completed 202012/02/2022 Problem Code: L23.9; Problem Code Type: ICD-10; Not Available [facility] 3 04:02:02 Essentia l hyperten karlene 18604646 Completed 200107/25/2015 Problem Code: 401.9; Problem Code Type: ICD-9; Not Available [facility] 3 04:02:03 Polyp of colon 57302873 Completed 201006/05/2021 Problem Code: K63.5; Problem Code Type: ICD-10; Not Available [facility] 3 04:02:03 History of vertigo 409910111 Completed 201012/02/2022 01/11/20 15 - Improved - Ju Cortez MD - she will continue with Jd's manoever PRN and call if worsenin g/nothin g helping Not Available [facility] 3 04:02:04 Acute sinusiti s 36368055 Completed 201912/16/2020 Problem Code: J01.90; Problem Code Type: ICD-10; Not Available [facility] 3 04:02:05 Pain of right lower leg 21040441117 9108 Completed 202101/11/2022 Problem Code: M79.661; Problem Code Type: ICD-10; Not Available [facility] 3 04:02:06 Hyperlip idemia 59878123 Completed 200910/19/2017 Not Available [facility] 3 04:02:07 Dizzines s and giddines s 703716615 Completed 201408/14/2019 Problem Code: R42; Problem Code Type: ICD-10; Not Available [facility] 3 04:02:07 Hyperten sive disorder 24585397 Completed 201011/03/2018 Not Available [facility] 3 04:02:09 Diarrhea 06695728 Completed 201610/19/2017 Problem Code: R19.7; Problem Code Type: ICD-10; Not Available [facility] 3 04:02:10 Anemia 267864183 Completed 201901/11/2022 Problem Code: D64.9; Problem Code Type: ICD-10; Not Available [facility] 3 04:02:10 [place] - lesion 079874783 Active 2022 Problem Code: L84; Problem Code Type: ICD-10; Not Available [facility] 4 05:37:51 Foot callus 858954670 Active [address], [place], [address] , [facility]. 4 11:29:32 Onychomy cosis 176727451 Active [address], [place], [address] , [facility]. 4 11:29:44 Vertigo 566941800 Active [address], [place], [address] , [facility] 4 13:20:57 Impacted cerumen of myaa l ears 03676920175 83313 Active 2023 JESSICA INGRAM PA-C [address], [place], [address] , [facility] 13:21:03 Notes:*Problem Name: Colonos copy 2005 - Hyperplastic Polyp *ICD-10 Codes: *Problem Status: inactive *Comments: *Note Date: 04/29/2010 *Problem Name: Rt Breast Bx 2013 - Adenosis *ICD-10 Codes: *Problem Status: active *Comments: *Note Date: 08/01/2013 Problem Notes Documentation Provider Name and Address Organization Details Recorded Time Cardiology Note : Cardiology Office Visit PATIENT NAME: Luna Mott UNIT #: [id number] ADMITTING PROVIDER: Zamzam Boss M.D. ACCOUNT #: [id number] PRIMARY CARE PROVIDER: JU CORTEZ MD DATE [...] Year Total time on date of encounter, (qmpj-vn-apcr and non zemh-by-azuk) (minutes): 19 Time was spent: reviewing prior [...] to loose wt but t is hard. 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 Any use or distribution by any person other than this provider is strictly prohibited. If you receive this rep ort in error, please notify us immediately at [phone] and return the original report to us at the address above. Thank you. SUSAN juan, [facility] 09/13/2023 15:45:17 Procedures Surgical History Date Name Laterality Status Provider Name and Address Organization Details Recorded Time 4 Cerumen Removal completed [address], [place], [address], [facility] 09/01/2023 13:52:38 3 total replacement of right hip joint completed Cornelia Lizarraga [facility] 03/31/2023 17:11:24 Imaging Results Imaging Date Name Status LastModified by Organization Details LastModified Time 05/03/2023 ultrasound imaging report completed rod [place] [address] [facility] [place], [address] 05/03/2023 18:12:07 05/13/2023 electrocardiogram completed [email or web address] [place] [address] [facility] [place], [address] 09/13/2023 15:45:54 01/12/2023 x-ray imaging report completed rod [place] [address] [place], [address] 06/29/2023 07:24:17 04/16/2022 bone density completed Information not available 11/22/2023 06:38:46 09/02/2020 MAMMO, screening completed Informat ion not available 11/22/2023 06:38:51 11/10/2022 MAMMO, screening completed Informat ion not available 11/22/2023 06:38:52 10/27/2021 XR, chest completed Information no t available 11/22/2023 06:38:53 11/05/2021 MAMMO, screening completed Informat ion not available 11/22/2023 06:38:55 11/28/2018 MAMMO, screening completed Informat ion not available 11/22/2023 06:38:57 01/25/2019 imaging/diagnostic result completed Information not available 11/22/2023 06:39:02 02/09/2019 imaging/diagnostic result completed Information not available 11/22/2023 06:39:03 09/29/2018 imaging/diagnostic result completed Information not available 11/22/2023 06:39:04 12/09/2018 imaging/diagnostic result completed Information not available 11/22/2023 06:39:05 01/12/2023 imaging/diagnostic result completed Information not available 11/22/2023 06:39:06 01/25/2023 imaging/diagnostic result completed Information not available 11/22/2023 06:39:07 10/20/2021 imaging/diagnostic result completed Information not available 11/22/2023 06:39:08 01/26/2020 imaging/diagnostic result completed Information not available 11/22/2023 06:39:10 08/18/2021 XR, hip completed Information no t available 11/22/2023 06:39:12 11/03/2022 imaging/diagnostic result completed Information not available 11/22/2023 06:39:19 11/12/2022 imaging/diagnostic result completed Information not available 11/22/2023 06:39:20 05/20/2021 imaging/diagnostic result completed Information not available 11/22/2023 06:40:48 10/29/2021 imaging/diagnostic result completed Information not available 11/22/2023 06:41:09 09/04/2020 DEXA completed Information no t available 11/22/2023 06:42:14 05/19/2021 imaging/diagnostic result completed Information not available 11/22/2023 06:42:16 07/23/2022 imaging/diagnostic result completed Information not available 11/22/2023 06:42:18 01/09/2019 imaging/diagnostic result completed Information not available 11/22/2023 06:42:20 12/04/2021 imaging/diagnostic result completed Information not available 11/22/2023 06:42:39 04/28/2022 imaging/diagnostic result completed Information not available 11/22/2023 06:42:41 01/27/2022 imaging/diagnostic result completed Information not available 11/22/2023 06:42:56 Procedure Notes None recorded. Medical Equipment None Reported. Allergies Allergen ID Allergen Name Allergen Category Reaction Reaction Severity Criticality Documentation Date Start Date Code Code System Note Provider Name and Address Organization Details Recorded Time 35565 sulfadiaz ine medicatio n tachycard ia mild Not available 01/15/20232001 71704 RxNorm Tachy cardi a Not Available [facility] 16:22:29 Medications Name Sig Start Date Stop [...] % 96 % 65 /min 38.7 kg/m2 99454.8 3 g 128 mm[Hg] 72 mm[Hg] Davey Allen MA [facility] 4 10:27:29 Date Recorded Body height Body mass index (BMI) Body weight Body temperature Respiratory rate Oxygen saturation Oxygen saturation in Arterial blood by Pulse oximetry Heart rate Systolic blood pressure Diastolic blood pressure Provider Name and Address Organization Details Last Updated DateTime 4 159.385 cm 38.7 kg/m2 72241.8 2 g 97.1 [degF] 17 /min 95 % 95 % 60 /min 139 mm[Hg] 69 mm[Hg] Vonda Fields RN [facility] 4 12:25:13 Date Recorded Body height Body mass index (BMI) Body weight Oxygen saturation Oxygen saturation in Arterial blood by Pulse oximetry Heart rate Respiratory rate Systolic blood pressure Diastolic blood pressure Provider Name and Address Organization Details Last Updated DateTime 4 159.385 cm 40.4 kg/m2 442961. 88 g 99 % 99 % 63 /min 18 /min 136 mm[Hg] 68 mm[Hg] Davey Allen MA [facility] 4 07:36:54 Social History Question Answer Notes LastModified by Organizat ion Details LastModified Time Tobacco Smoking Status Never Smoker Davey Allen MA null, [facility] 05/21/2023 10:57:21 Would You Say That, In General, Your Health Is Very Good [email or web address] Information not available 05/21/2023 How Often Does Anyone, Including Family, Physically Hurt You? Never [email or web address] Information not available 05/21/2023 How Often Does Anyone, Including Family, Insult Or Talk Down To You? Never [email or web address] Information no t available 05/21/2023 How Often Does Anyone, Including Family, Threaten You With Harm? Never [email or web address] Information not available 05/21/2023 How Often Does Anyone, Including Family, Scream Or Curse At You? Never [email or web address] Information not available 05/21/2023 Within The Past 12 Months, You Worried That Your Food Would Run Out Before You Got Money To Buy More. Never True [email or web address] Information n ot available 05/21/2023 Within The Past 12 Months, The Food You Bought Just Didn't Last And You Didn't Have Money To Get More. Never True Information n ot available 05/21/2023 How Hard Is It For You To Pay For The Very Basics Like Food, Housing, Medical Care, And Heating? Would You Say It Is: Not Hard At All [email or web address] Information not available 05/21/2023 In The Past 12 Months, Has Lack Of Reliable Transportation Kept You From Medical Appointments, Meetings, Work Or From Getting Things Needed For Daily Living? No [email or web address] Information not available 05/21/2023 What Is Your Housing Situation Today? I Have Housing. [email or web address] Information not available 05/21/2023 How Often In The Past Year Have You Used Marijuana (including Smoking, Vaping, Dabbing, Or Edibles)? Never [email or web address] Information not available 05/21/2023 How Often In The Past Year Have You Used Prescription Medications That Were Not Prescribed To You? Never [email or web address] Information n ot available 05/21/2023 How Often In The Past Year Have You Taken Your Own Prescription Medication More Than The Way It Was Prescribed Or For Different Reasons Than Its Intended Purpose? Never [email or web address] Information no t available 05/21/2023 How Often In The Past Year Have You Used Other Drugs (for Example, Heroin, Cocaine, Meth, Salvia, Inhalants)? Never [email or web address] Information not available 05/21/2023 Have You Ever Used IV Drugs? No [email or web address] Information not available 05/21/2023 What Matters Most To You? Staying Healthy, Keeping Active. Getting Exercise And Losing Some Weight [email or web address] Information not available 05/21/2023 During The Past Four Weeks Has Your Physical And Emotional Health Limited Your Social Activities With Family And Friends, Neighbors, Or Groups? Not At All Information not available 05/21/2023 During The Past Four Weeks, Was Someone Available To Help You If You Needed And Wanted Help? (For Example, If You [place] Very Nervous, Lonely, Or Blue; Got Sick And Had To Stay In Bed; Needed Someone To Talk To; Needed Help With Daily Chores; Or Needed Help Just Taking Care Of Yourself.) No- Not At All [email or web address] Information n ot available 05/21/2023 During The Past Four Weeks, What Was The Hardest Physical Activity You Could Do For At Least 2 Minutes? Moderate [email or web address] Information not available 05/21/2023 Can You Get To Places Out Of Walking Distance Without Help? (For Example, Can You Travel Alone On Buses Or Taxis, Or Drive Your Own Car?) Yes [email or web address] Information not available 05/21/2023 Can You Go Shopping For Groceries Or Clothes Without Someone? s Help? Yes Information not available 05/21/2023 Can You Prepare Your Own Meals? Yes [email or web address] Information not available 05/21/2023 Can You Do Your Housework Without Help? Yes Information not available 05/21/2023 Because Of Any Health Problems, Do You Need The Help Of Another Person With Your Personal Care Needs Such As Eating, Bathing, Dressing, Or Getting Around The House? No [email or web address] Information not available 05/21/2023 Can You Handle Your Own Money Without Help? Yes [email or web address] Information not available 05/21/2023 Are You Having Difficulties Driving Your Car? No [email or web address] Information no t available 05/21/2023 Do You Always Fasten Your Seat Belt When You Are In A Car? Yes- Usually [email or web address] Information not available 05/21/2023 How Often During The Past Four Weeks Have You Been Bothered By Any Of The Following Problems? Falling Or Dizzy When Standing Up? Never [email or web address] Information not available 05/21/2023 Sexual Problems? Never [email or web address] Informat ion not available 05/21/2023 Trouble Eating Well? Sometimes [email or web address] Information not available 05/21/2023 Teeth Or Denture Problems? Sometimes nqetrtdh83 Information not available 05/21/2023 Problems Using The Telephone? Never [email or web address] Information not available 05/21/2023 Tiredness Or Fatigue? Sometimes [email or web address] Information not available 05/21/2023 Have You Had 2 Or More Falls Or Sustained An Injury With A Fall In The Last Year? No [email or web address] Information no t available 05/21/2023 Do You Have Difficulty With Walking Or Balance? No [email or web address] Information not available 05/21/2023 Do You Currently Use A Hearing Device? No [email or web address] Information not available 05/21/2023 Do You Currently Have Any Trouble With Your Vision? Yes Information no t available 05/21/2023 Do You Exercise For About 20 Minutes Three Or More Days A Week? Yes- Most Of The Time [email or web address] Information not available 05/21/2023 Are There Any Safety Concerns In Your Home (see Attached CDC Pamphlet)? No [email or web address] Information not available 05/21/2023 How Often Do You Have Trouble Taking Medicines The Way You Have Been Told To Take Them? I Always Take Them As Prescribed [email or web address] Information not available 05/21/2023 How Confident Are You That You Can Control And Manage Most Of Your Health Problems? Very Confident [email or web address] Information not available 05/21/2023 Do You Currently Have Any Difficulty With Your Hearing? No [email or web address] Information not available 05/21/2023 Date Of Most Recent SBINS 05/21/2023 [email or web address] Information not available 05/21/2023 What Was The Date Of Your Most Recent Tobacco Screening? 09/01/2023 Information not available 09/01/2023 Has Tobacco Cessation Counseling Been Provided? Yes Information not available 09/01/2023 On What Date Was Tobacco Cessation Counseling Provided? 09/01/2023 Information not available 09/01/2023 Do You Or Have You Ever Used Any Other Forms Of Tobacco Or Nicotine? No [email or web address] Information not available 05/21/2023 Sex: Female Functional Status None recorded. Mental Status None recorded. Family History Relationship Description Onset Age of this Age Resolved Age Notes LastModified by Organization Details LastModified Time Sister Family history of Hypertension opal. Not available 12/2022 03:57:11 Sister Family history of breast cancer opal. Not available 2022 03:57:12 Brother Family history of diabetes mellitus type 1 opal. Not available 2022 03:57:12 Notes:*Problem: updated 2021 [...] preservative free, adsorbed 11/03/2018 completed Not Available [facility] 01/15/2023 04:53:39 Tdap 04/12/2007 completed Not Available [facility] 04:53:39 zoster live 06/16/2012 completed Not Available [facility] 01/15/2023 04:53:40 Pneumococcal conjugate PCV 13 09/17/2015 completed Not Available [facility] 01/15/2023 04:53:40 Influenza, high-dose, trivalent, PF 11/26/2017 completed Not Available [facility] 01/15/2023 04:53:41 Td(adult) unspecified formulation 09/30/1992 completed Not Available [facility] 01/15/2023 04:53:41 Influenza, split virus, trivalent, preservative 11/28/2015 completed Not Available [facility] 01/15/2023 04:53:41 Influenza, split virus, trivalent, preservative 01/04/2015 completed Not Available [facility] 01/15/2023 04:53:41 Influenza, split virus, quadrivalent, PF 12/21/2018 completed Not Available [facility] 01/15/2023 04:53:41 zoster recombinant 08/30/[address] [facility] 01/15/2023 04:53:42 zoster recombinant 01/26/[address] [facility] 01/15/2023 04:53:42 Influenza, high-dose, quadrivalent, PF 12/04/2020 completed Not Available [facility] 01/15/2023 04:53:43 Influenza, high-dose, quadrivalent, PF 12/11/2019 completed Not Available [facility] 01/15/2023 04:53:43 Influenza, high-dose, quadrivalent, PF 12/29/2021 completed Not Available [facility] 01/15/2023 04:53:43 COVID-19, mRNA, LNP-S, PF, 100 mcg/0.5mL dose or 50 mcg/0.25mL dose 07/09/2021 completed Not Available [facility] 01/15/2023 04:53:43 COVID-19 vaccine, vector-nr, rS-Ad26, PF, 0.5 mL 05/02/2020 completed Not Available [facility] 01/15/2023 04:53:44 SARS-COV-2 (COVID-19) vaccine, UNSPECIFIED 05/31/2020 completed Not Available [facility] 01/15/2023 04:53:44 SARS-COV-2 (COVID-19) vaccine, UNSPECIFIED 01/03/2021 completed Not Available [facility] 01/15/2023 04:53:44 pneumococcal polysaccharide PPV23 07/05/2014 completed Not Available Critical access hospital 2022 04:53:45 Hep B, unspecified formulation 04/14/1993 completed Not Available [facility] 01/15/2023 04:53:45 Hep B, unspecified formulation 09/30/1992 completed Not Available [facility] 01/15/2023 04:53:46 Hep B, unspecified formulation 10/31/1992 completed Not Available [facility] 01/15/2023 04:53:46 influenza, unspecified formulation 12/11/2009 completed Not Available [facility] 01/15/2023 04:53:47 influenza, unspecified formulation 12/13/2012 completed Not Available [facility] 01/15/2023 04:53:47 influenza, unspecified formulation 12/18/2008 completed Not Available [facility] 01/15/2023 04:53:47 influenza, unspecified formulation 12/19/2010 completed Not Available [facility] 01/15/2023 04:53:47 influenza, unspecified formulation 12/30/2006 completed Not Available [facility] 01/15/2023 04:53:48 influenza, unspecified formulation 01/09/2014 completed Not Available [facility] 01/15/2023 04:53:48 influenza, unspecified formulation 01/26/2008 completed Not Available [facility] 01/15/2023 04:53:48 influenza, unspecified formulation 02/16/2012 completed Not Available [facility] 01/15/2023 04:53:48 Influenza, high-dose, quadrivalent, PF 12/17/2022 completed Not Available [facility] 03/19/2023 05:33:03 COVID-19, mRNA, LNP-S, PF, herminio-sucrose, 30 mcg/0.3 mL 12/28/2022 completed Not Available [facility] 03/19/2023 05:33:03 Past Encounters Encounter ID Performer Location Encounter Start Date Encounter Closed Date Diagnosis/Indication Diagnosis SNOMED-CT Code Diagnosis ICD10 Code [id number] JU CORTEZ MD [address] [address] 05/21/2023 10:03:54 05/21/2023 11:37:49 Onychomycosis 326321592 B35.1 Asthma 759493966 J45.90 9 Cardiomyopathy 48005241 I10 Disorder of hip joint 42 7478285 M12.859 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 Hyperlipidemia 06377013 E78.5 Vulval and /or perineal noninflammatory disorders 315986517 N90.9 Adult heal th examination 185716023 Z00.[id number] [address] 09/01/2023 10:23:16 09/01/2023 13:28:10 Vertigo 173323871 R42 Impacted c erumen of bilateral ears 8555232367 304297 H61.23 [id number] JU CORTEZ MD [address] [address] 11/26/2023 07:26:08 11/26/2023 08:10:59 Screening mammography 95541550 Z12.31 Health Concerns Section Related Observation LastModified by Organization Detai ls LastModified Time None Recorded Concern Status LastModified by Organization Details LastModified Time None Recorded Advance Directives Directive None Recorded Payers Encounter Date Sequence Insurance Name Policy Number Policy Lema Covered Member ID Lema Member ID Guarantor Name 05/21/2023 1 [id number]ANTAGE - PPO) [id number] Luna Mott [id number] Luna Mott 09/01/2023 1 [place] - [place]) [id number] Luna Mott [id number] Luna Mott Notes Date Note Type Note Provider Name and Address Organization Details Recorded Time 05/21/2023 text/html HPI Notes: Thais here today for an annual wellness exam MD [address], [place], [address], [facility]. 05/24/2023 18:32:35 09/01/2023 text/html [...] it. JESSICA INGRAM PA-C [address], [place], [address], [facility]. 09/01/2023 13:55:07 OBGyn Episode No OBEpisode recorded.
--- OUTSIDE RECORDS SUMMARY | 2023-11-26 10:44 | XMS_ITS | Encounter Summary ---
Author Organization [facility] Address [address] [place] [address] Care Team Providers Care Lung Splitter Name Role Phone Lolly Oliveira MD Primary Care Provider [phone] Encounter Details Date Type Department Care Team (Late st Contact Info) Description 04/25/2009 Orders Only [facility] Laboratory Services - [facility] ([facility] [address] [place], [place] [phone] Lolly Oliveira MD [address] [place], [place] [phone] Social History Tobacco Use Types Packs/Day Years [...] ? JING ALVARENGA ? Accession #: ? [id number] ? : ? 1950 (Age: 58) ??F [...] reviewed and electronically signed by: ? Helena [place], [place](ASCP) ? Report Date: ??04/29/2009 10:38 ? End of Report ? TOVA BLANCO 04/25/2009 04/26/2009 Lolly Oliveira MD PATHOLOGY ORDERABLES [facility] [address] [place] [address] documented in this encounter Visit Diagnoses Not on filedocumented in this encounter Care Teams Lung Splitter Relationship Specialty Start Date End Date Lolly Oliveira MD [address] [place] [address] PCP - General 11/13/08 documented as of this encounter
--- OUTSIDE RECORDS SUMMARY | 2023-11-26 10:44 | XMS_ITS | Encounter Summary ---
Author Organization [facility] Address [address] [place] [address] Care Team Providers Care Family Resource Management Professor Name Role Phone Lolly Oliveira MD Primary Care Provider [phone] Encounter Details Date Type Department Care Team (Late st Contact Info) Description 02/20/2020 Lab Requisition [facility] Pathology & Laboratory Medicine - [address] [id number] Outr Resulting Lab, Provider Social History Tobacco [...] in accordance with CLIA regulations, [employer] (CAP) guidelines (May 25, 2019), and FDA guidance (May 06, 2019). This test is only for use under the Food and Drug Administration's Emergency Use Authorization. Swab ENTIRE NASOPHARYNX / Unknown 02/19/2020 16:30 EST 02/20/2020 16:09 EST Provider Outr Resulting Lab MICROBIOLOGY - GENERAL ORDERABLES [facility] [place], [place] * COVID-19 TESTING (02/19/2020 16:30 EST) COVID-19 rt-PCR Result NEGATIVE Negative 02/22/2020 23:41 EST [facility] Comment: 2019-novel Coronavirus (2019-nCoV) not detected [...] in accordance with CLIA regulations, [employer] (CAP) guidelines (May 25, 2019), and FDA guidance (May 06, 2019). This test is only for use under the Food and Drug Administration's Emergency Use Authorization. Performing Lab [facility] 02/22/2020 23:41 EST [facility] Swab 02/19/2020 16:3 0 EST 02/20/2020 16:09 EST Provider Outr Resulting Lab MICROBIOLOGY - GENERAL ORDERABLES [facility] [address] [place] [address] [facility] [place], [place] documented in this encounter Visit Diagnoses Not on filedocumented in this encounter Care Teams Family Resource Management Professor Relationship Specialty Start Date End Date Lolly Oliveira MD [address] [place] [address] PCP - General 11/13/08 documented as of this encounter
--- OUTSIDE RECORDS SUMMARY | 2023-11-26 10:44 | XMS_ITS | Clinical Summary ---
Author Organization [facility] Address [address] [place] [address] Care Team Providers Care Quilting Machine Helper Name Role Phone Lolly Oliveira MD Primary Care Provider [phone] Social History Tobacco Use Types Packs/Day Years [...] COVID-19 Vaccine ( season) 2023 Care Teams Quilting Machine Helper Relationship Specialty Start Date End Date Lolly Oliveira MD [address] [place], [place] [id number] PCP - General 11/13/08
--- OUTSIDE RECORDS SUMMARY | 2023-11-26 10:45 | XMS_ITS | Encounter Summary ---
Author Organization [facility] [place] [address] Care Team Providers Care X Ray Technologist Name Role Phone Lolly Oliveira MD Primary Care Provider [phone] Reason for Visit * Reason Comments Follow-up Encounter Details Date Type Department Care Team (Late st Contact Info) Description 05/21/2022 8:00 AM EDT Office Visit Dermatology at [address] [id number] Clay Ramírez MD [address] [facility], [place] [address] Psoriasis, guttate Social History Tobacco Use Types [...] [facility] Encounter Non[place] [address] Arrived documented as of this encounter Visit Diagnoses Diagnosis Psoriasis, guttate Other psoriasis documented in this encounter Care Teams X Ray Technologist Relationship Specialty Start Date End Date Lolly Oliveira MD [address] [place] [address] PCP - General 07/17/13 documented as of this encounter
--- OUTSIDE RECORDS SUMMARY | 2023-11-26 10:45 | XMS_ITS | Encounter Summary ---
Author Organization [facility] [place] [address] Care Team Providers Care Gunite Mixer Name Role Phone Lolly Oliveira MD Primary Care Provider [phone] Reason for Visit * Auth/Cert (Routine) Specialty Diagnoses / Procedures Referred By Contac t Referred To Contact Diagnoses Left bundle-branch block, unspecified Other cardiomyopathies Left bundle branch block [I44.7]Nonischemic cardiomyopathy [I42.8] Procedures PRG CATH PLMT LEFT HEART CATH & ARTS W/INJ & ANGIO IMG S&I ELECTROPHYSIOLOGY PROCEDURE Lalit Mcmahon MD [facility] [address] [facility] Referral ID Status Reason Start Date Expiration Date Visits Re quested Visits Authorized [id number] 1 1 Encounter Details Date Type Department Care Team (Late st Contact Info) Description 07/23/2022 1:00 PM EDT - 07/23/2022 5:30 PM EDT Surgery [place] [address] Lalit Mcmahon MD [facility] [address] ELECTROPHYSIOLOGY PROCEDURE Social History Tobacco Use Types [...] Luna Mott Patient Age: 71 y.o. Language: Faroese Race: White Ethnicity: Not nor Admit date: 07/23/2022 Discharge date and time: 07/24/22 Attending Physician: Lalit Mcmahon MD Discharge Physician: Lalit Mcmahon MD Follow-up Recommendations for Providers: - s/p DRY CHAIN PULLER-D implant - post implant QRS 130 ms [...] Nevus ??? Solar lentigo Operations/Major Procedures: 07/23/22: [facility] DRY CHAIN PULLER-D implant History of Presentation: 71 y.o. female with a history of HFrEF, LBBB, QRS >150, NYHA II who is POD#1 of DRY CHAIN PULLER-D implant ([employer]). Hospital Course: Elective admission for DRY CHAIN PULLER-D implant Admitted post-implant for pain management, telemetry [...] (heart failure with reduced ejection fraction) [I50.20] DRY CHAIN PULLER-D implant Admission Condition: good Indication for Admission: [...] g Refills: 3 fluticasone propionate 50 mcg/actuation Ethel, Suspension Commonly known as: Flonase 1 spray [...] F. The office scheduling phone number is [phone]. ARM MOVEMENT RESTRICTIONS POST-IMPLANT - Do not [...] please call the Cardiac ElectrophysiologyTriage Nurse at [phone], option 3. General Instructions None Discharge References/Attachments [...] F. The office scheduling phone number is [phone]. ARM MOVEMENT RESTRICTIONS POST-IMPLANT - Do not [...] please call the Cardiac ElectrophysiologyTriage Nurse at [phone], option 3. documented in this encounter Medications [...] with spacer fluticasone propionate (Flonase) 50 mcg/actuation Ethel, Suspension 1 spray by Each Nare route [...] Cardiac Electrophysiology Post-Implant Device Interrogation Luna Mott [id number] 07/24/2022 History: Luna Mott is a 71 y.o. female with a history of HFrEF, LBBB, QRS >150, NYHA II who is POD#1 of DRY CHAIN PULLER-D implant ([employer]). Overall feels well this morning. Ready [...] WOB Neuro- A&Ox3 Device Interrogation: Data ?? Neonatal Icu Coordinator Model # Serial # Generator [employer] [id number] Atrial Lead [employer] [id number] [id number] RV Lead [employer] 0672 [id number] LV Lead [employer] 4674 [id number] ?? Diagnostics Pacing Mode: DDD 60-130 Underlying Rhythm: [place] Atrial Episodes: None Ventricular Episodes: None FINAL PROGRAMMING: Pacing: Mode Lower rate (ppm) Upper rate (ppm) ?? DDD 60 130 VF: Rate (bpm) #Antitachycardia pacing First shock energy (J) ?? 200 Quick convert 41 VT: 170 Monitor only Monitor only ? Battery and Leads Impedances (ohms) Sensing (mV) Thresholds HV RA RV LV RA RV LV RA RV LV 73 [id number] (LVa) 7.7 13.1 >25 0.4V @ 0.4 ms 0.4V @ 0.4 ms 0.5 V @ 1.0 ms POD#1 CXR: All leads in nominal positioning Impression: 71 y.o. female who is s/p DRY CHAIN PULLER-D implant for LBBB, NYHA II, HFrEF. - [...] ([facility]) Fadi Nunez MD 07/24/2022 Pager: [phone] I met with the patient today and [...] agreement. ? Dr. Lalit Mcmahon, electrophysiology attending ([id number]) * Zaria Wright RN - 07/23/2022 8:28 [...] HF, QRS > 150 ms presents for DRY CHAIN PULLER-D placement. ROS: Denies recent fevers or chills [...] 0.9) flush 5 mL 5 mL Intravenous [id number] ramos MD ??? sodium chloride 0.9 % [...] HF, QRS > 150 ms presents for DRY CHAIN PULLER-D placement. Backup would be LBBAP lead. Antibiotics: cefazolin Rationales for, intended benefits and potential risk of planned procedures reviewed. The patient indicated understanding and agreement with the plan. Informed consent signed. Procedure checklist completed. Fadi Nunez MD Cardiac Electrophysiology Fellow [facility] Pager [phone] 07/23/2022 I met with the patient today [...] agreement. ? Dr. Lalit Mcmahon, electrophysiology attending ([id number]) documented in this encounter Miscellaneous Notes * Brief Op Note - Lalit Mcmahon MD - 07/23/2022 4:04 PM EDT Brief Operative Note Patient Name: Luna Mott : [id number] MR#: [id number] Case Date: 07/23/2022 Surgeon: Surgeon(s) and Role: [...] AM EST Hospital Encounter [place] [address] Arrived Scheduled Orders Name Type Priority Associated Diagnoses Orde r Schedule EKG 12 Lead ECG Routine Cardiac resynchronization therapy defibrillator (DRY CHAIN PULLER-D) in place One Time for 1 Occurrences [...] (Bezet) 522 ms MUSE SYSTEM Calculated R [place] 78 degrees MUSE SYSTEM Calculated T [place] -71 degrees MUSE SYSTEM INTERPRETATION AV dual-paced [...] who have questions please contact the health professional healthcare representative that requested your imaging first. ? Electronically signed by: Kwame Vargas MD, [facility] ([phone]), at 07/24/2022 6:43 AM Narrative 07/24/2022 6:43 [...] patients who have questions please contactthe health professional healthcare representative that requested your imaging first. Electronically signed by: Kwame Vargas MD, [facility]([phone]), at 07/24/2022 6:43 AM Lalit Mcmahon MD IMG DX ORDERABLES * ELECTROPHYSIOLOGY PROCEDURE (07/23/2022 1:11 PM EDT) Anatomical Region Laterality Modality Other Narrative 07/23/2022 4:24 PM EDT Table formatting from the original result was not included. BIVENTRICULAR ICD IMPLANTATION Pearl Diver: Lalit Mcmahon MD Fellow: Fadi Nunez MD [...] lateral branch of the CS in the BAHAMIAN view. This branch was cannulated with a [...] the entire procedure. LEAD AND GENERATOR DATA: Neonatal Icu Coordinator Model # Serial # Generator [employer] [id number] Atrial Lead [employer] [id number] [id number] RV Lead [employer] 0672 [id number] LV Lead [employer] 4674 [id number] PACE/SENSE DATA: Sensed wave (mV) Threshold (V) [...] (cGycm2) 300 CONCLUSIONS: Successful implantation of a [employer] biventricular ICD for primary prevention and treatment of symptoms related to congestive heart failure. Follow up in EP clinic in 1-2 months. Procedures performed: new ICD system ( cpt 46944-I4); implant LV lead at time of ICD insertion (cpt 77586) I have read, edited and approve of this report: Lalit Mcmahon MD [facility] Cardiac Electrophysiology 07/23/2022 4:22 PM Procedure Note Lalit Mcmahon MD - 07/23/2022 BIVENTRICULAR ICD IMPLANTATION Pearl Diver: Lalit Mcmahon MD Fellow: Fadi Nunez MD [...] appropriate lateralbranch of the CS in the [place]AHAMIAN view. This branch was cannulated with a [...] in the entireprocedure. LEAD AND GENERATOR DATA: Neonatal Icu Coordinator Model # Serial # Generator [employer] [id number] Atrial Lead [employer] 7841 [id number] RV Lead [employer] 0672 817453 LV Lead [employer] 4674 084585 PACE/SENSE DATA: Sensed wave (mV) Threshold (V) [...] (cGycm2) 300 CONCLUSIONS: Successful implantation of a [employer] biventricular ICD forprimary prevention and treatment of symptoms related to congestive heartfailure. Follow up in EP clinic in 1-2 months. Procedures performed: new ICD system ( cpt 81099-V5); implant LV lead attime of ICD insertion (cpt 08102) I have read, edited and approve of this report: Lalit Mcmahon MD S Cardiac Electrophysiology 07/23/2022 4:22 PM Lalit Mcmahon MD EP PROCEDURE ORDERAB LES * POCT Glucose (07/23/2022 12:54 PM EDT) [facility] Signature Glucose, POC 83 65 - 199 mg/dL [facility] Comment: Supplemental ranges: <140 mg/dL before meals <180 mg/dL all other times of the day Blood 07/23/2022 12:5 4 PM EDT 07/23/2022 12:54 PM EDT Lalit Mcmahon MD POINT OF CARE TEST O RDERABLES Performing Organization Address City/[facility]/ZIP Co de Phone Number [facility] [place] [address] * EKG 12 Lead (07/23/2022 12:33 PM EDT) Ventricular rate 72 BPM MUSE SYSTEM Atrial Rate 72 BPM MUSE SYSTEM P-R Interval 158 ms MUSE SYSTEM QRS Duration 176 ms MUSE SYSTEM Q-T Interval 458 ms MUSE SYSTEM QTC Calculated (Bezet) 501 ms MUSE SYSTEM Calculated P [place] 34 degrees MUSE SYSTEM Calculated R [place] 12 degrees MUSE SYSTEM Calculated T [place] -173 degrees MUSE SYSTEM INTERPRETATION Normal sinus rhythm Left bundle branch block Abnormal ECG No previous ECGs available Confirmed by MD Salome, Lalit ([id number]) on 07/23/2022 1:19:03 PM MUSE SYSTEM 07/23/2022 12:3 3 PM EDT 07/23/2022 1:19 PM EDT Lalit Mcmahon MD ECG ORDERABLES Performing Organization Address [facility]/ZIP Co de Phone Number MUSE SYSTEM * Differential, Automated (07/23/2022 11:55 AM EDT) Neutrophil % 62.6 % [facility] Neutrophil Absolute 4.14 1.70 - 6.10 x10(3)/[facility] Lymph % 27.0 % [facility] Lymphocytes Abs 1.8 0.9 - 3.2 x10(3)/[facility] LAB[facility] Monocyte % 7.3 % [facility] Monocyte Abs 0.5 0.3 - 0.9 x10(3)/[facility] LAB[facility] Eos % 2.3 % [facility] Eosinophils Abs 0.2 0.0 - 0.4 x10(3)/[facility] Basophil % 0.6 % [facility] Baso Absolute 0.0 0.0 - 0.1 x10(3)/[facility] Immature Gran % 0.20 % [facility] Comment: Immature granulocytes(IG's)percentage and absolute count will include metamyelocytes, myelocytes, and promyelocytes. Blood smears from CBCs yielding IG's will be scanned manually for concordance. If this scan disagrees with the automated IG or if promyelocytes are noted, a manual differential will be performed. Immature Gran Absolute 0.01 0.00 - 0.04 x10(3)/[facility] Blood 07/23/2022 11:5 5 AM EDT 07/23/2022 12:07 PM EDT Narrative Resulting Agency Comment Spec In Lab Lalit Mcmahon MD HEMATOLOGY ORDERABLE S [facility] [place] [address] * Hemogram (07/23/2022 11:55 AM EDT) White Blood Cell 6.6 4.0 - 9.5 x10(3)/[facility] Red Blood Cell 4.50 4.00 - 5.21 x10(6)/[facility] Hemoglobin 13.7 11.7 - 15.5 g/dL [facility] Hematocrit 42.5 35.7 - 45.8 % [facility] Mean Cell Volume 94.4 82.6 - 94.4 fL [facility] Mean Cell Hemoglobin 30.4 27.1 - 32.0 pg [facility] Mean Cell Hemoglobin Concentration 32.2 31.7 - 35.0 g/dL [facility] Platelet 193 145 - 357 x10(3)/[facility] RDW Standard Deviation 45.5 37.0 - 46.0 fL [facility] RDW coefficient of variation 13.2 11.5 - 14.1 % [facility] Mean Platelet Volume 9.5 7.6 - 12.9 fL [facility] NRBC% auto 0.0 % [facility] NRBC Absolute 0.000 0.000 - 0.000 x10(3)/[facility] Blood 07/23/2022 11:5 5 AM EDT 07/23/2022 12:07 PM EDT Narrative Resulting Agency Comment Spec In Lab Lalit Mcmahon MD HEMATOLOGY ORDERABLE S [facility] [place] [address] * (ABNORMAL) BMP w/fasting Glucose (07/23/2022 11:55 [...] of Diabetes Mellitus, Position Statement from the [place] [employer]. ??Diabetes Care, Volume 33, Supplement 1, Mar 2009 Blood Urea Nitrogen 23(H) 8 - 18 mg/dL [facility] Creatinine 1.07 0.70 - 1.20 mg/dL [facility] Sodium 141 135 - [...] questions. Chloride 106 98 - 107 mmol/L [facility] Carbon Dioxide 26 22 - 31 mmol/L [facility] Anion Gap 9 5 - 15 mmol/L [facility] Calcium 9.7 8.5 - 10.5 mg/dL [facility] Est Glomerular Filtration Rate 55(L) >=60 mL/min/1. 73 m?? [facility] Comment: This patient's estimated [...] MD CHEMISTRY ORDERABLES Performing Organization Address [facility] Co de Phone Number [facility] [place] [address] * Prothrombin Time (07/23/2022 11:55 AM EDT) [...] MD HEMATOLOGY ORDERABLE S Performing Organization Address City/[facility] Co de Phone Number [facility] [place] [address] documented in this encounter Visit Diagnoses Diagnosis HFrEF (heart failure with reduced ejection fraction)- Primary Left bundle branch block Other left bundle branch block Nonischemic cardiomyopathy Other primary cardiomyopathies Cardiac resynchronization therapy defibrillator (DRY CHAIN PULLER-D) in place Left bundle branch block Other [...] Routine documented in this encounter Care Teams Gunite Mixer Relationship Specialty Start Date End Date Lolly Oliveira MD [address] [place] [address] PCP - General 07/17/13 documented as of this encounter
--- OUTSIDE RECORDS SUMMARY | 2023-11-26 10:45 | XMS_ITS | Encounter Summary ---
[place] [address] Care Team Providers Care Motorcycle Service Technician Name Role Phone Lolly Oliveira MD Primary Care Provider [phone] Encounter Details Date Type Department Care Team [...] AM EST Hospital Encounter Non[place] [address] Arrived documented as of this encounter Visit Diagnoses Not on filedocumented in this encounter Care Teams Motorcycle Service Technician Relationship Specialty Start Date End Date Lolly Oliveira MD [address] [place] [address] PCP - General 07/17/13 documented as of this encounter
--- OUTSIDE RECORDS SUMMARY | 2023-11-26 10:45 | XMS_ITS | Encounter Summary ---
Author Organization [facility] [place] [address] Care Team Providers Care Tumbling And Rolling Supervisor Name Role Phone Lolly Oliveira MD Primary Care Provider [phone] Encounter Details Date Type Department Care Team [...] AM EST Hospital Encounter Non-[place] [address] Arrived documented as of this encounter Visit Diagnoses Not on filedocumented in this encounter Care Teams Tumbling And Rolling Supervisor Relationship Specialty Start Date End Date Lolly Oliveira MD [address] [place] [address] PCP - General 07/17/13 documented as of this encounter
--- OUTSIDE RECORDS SUMMARY | 2023-11-26 10:45 | XMS_ITS | Encounter Summary ---
[place] [address] Care Team Providers Care Road Freight Firer Name Role Phone Lolly Oliveira MD Primary Care Provider [phone] Encounter Details Date Type Department Care Team (Late st Contact Info) Description 04/09/2022 Refill Dermatology at [address] [address] Nora Meredith, SPINDLE FRAME CARVER Social History Tobacco Use Types Packs/Day Years [...] [facility] Hospital Encounter [place] [address] Arrived documented as of this encounter Visit Diagnoses Not on filedocumented in this encounter Care Teams Road Freight Firer Relationship Specialty Start Date End Date Lolly Oliveira MD [address] [place] [address] PCP - General 07/17/13 documented as of this encounter
--- OUTSIDE RECORDS SUMMARY | 2023-11-26 10:45 | XMS_ITS | Encounter Summary ---
Author Organization [place] [address] Care Team Providers Care Health Care Social Worker Name Role Phone Lolly Oliveira MD Primary Care Provider [phone] Reason for Visit * Diagnostic Test (Routine) - Closed Specialty Diagnoses / Procedures Referred By Contac t Referred To Contact Radiology Diagnoses Left bundle branch block Nonischemic cardiomyopathy Procedures MRI Cardiac Morphology Function With Flow Velocity Quantification wwo Contrast MRI Cardiac Morphology Function wwo Contrast Lalit Mcmahon MD [facility] [place] [address] [facility] [place] [address] Referral ID Status Reason Start Date Expiration Date V isits Requested Visits Authorized [id number] Closed Specialty Service Requested 05/06/2022 11/07/2023 2 1 Encounter Details Date Type Department Care Team (Latest Contact Info) Description 07/14/2022 9:09 AM EDT - 07/14/2022 11:59 PM EDT Hospital [place] [address] Lalit Mcmahon MD [facility] [place] [address] Discharge Disposition: Home Social History Tobacco Use [...] with spacer fluticasone propionate (Flonase) 50 mcg/actuation [place], Suspension 1 spray by Each Nare route [...] AM EST Hospital Encounter [place] [address] Arrived documented as of this [...] documented in this encounter Care Teams Health Care Social Worker Relationship Specialty Start Date End Date Lolly Oliveira MD [address] [place] [address] PCP - General 07/17/13 documented as of this encounter
--- OUTSIDE RECORDS SUMMARY | 2023-11-26 10:45 | XMS_ITS | Encounter Summary ---
Author Organization [facility] [place] [address] Care Team Providers Care Administrative Office Clerk Name Role Phone Lolly Oliveira MD Primary Care Provider [phone] Reason for Referral * Consultation (Routine) - Closed Specialty Diagnoses / Procedures Referred By Contact Referred To Contact Electrophysiology / Cardiology Diagnoses Left bundle branch block Cardiomyopathy, unspecified type AT MINIMUM PT NEEDS CONSIDERATION FOR DEFIBRILLATOR, ALSO CANDIDATE FOR RESYNCHRONIZATION THERAPY HER QRS IS >0.16 Lolly Oliveira MD [address] [place] [address] [facility] Cardiology [address] [place] [phone] Referral ID Status Reason Start Date Expiration Date V isits Requested Visits Authorized [id number] Closed Consult, Test & Treat PCP Updated and/or Approved 04/30/2022 04/30/2023 6 6 Encounter Details Date Type Department Care Team (Latest Contact Info) Description 04/30/2022 Transcribe Orders eDH Incoming Referrals [phone] Lolly Oliveira MD [address] [place], [place] [id number] Left bundle branch block; Cardiomyopathy, unspecified type [...] AM EST Hospital Encounter [place] [address] Arrived Scheduled Referrals Name Type Priority Associated Diagnoses Orde r Schedule Referral to Cardiology Outpatient Referral Routine Left bundle branch block Cardiomyopathy, Unspecified Type Ordered: 04/30/2022 documented as of this encounter Visit Diagnoses Diagnosis Left bundle branch block Other left bundle branch block Cardiomyopathy, unspecified type documented in this encounter Care Teams Administrative Office Clerk Relationship Specialty Start Date End Date Lolly Oliveira MD [address] [place] [address] PCP - General 07/17/13 documented as of this encounter
--- OUTSIDE RECORDS SUMMARY | 2023-11-26 10:45 | XMS_ITS | Encounter Summary ---
Author Organization [facility] [place] [address] Care Team Providers Care Advertising Manager Name Role Phone Lolly Oliveira MD Primary Care Provider [phone] Encounter Details Date Type Department Care Team (Late Contact Info) Description 01/14/2022 Telephone Dermatology at [address] [address] Nora Meredith LPN Social History [...] AM EST Hospital Encounter Non-[place] [address] Arrived documented as of this encounter Visit Diagnoses Not on filedocumented in this encounter Care Teams Advertising Manager Relationship Specialty Start Date End Date Lolly Oliveira MD [address] [place] [address] PCP - General 07/17/13 documented as of this encounter
--- OUTSIDE RECORDS SUMMARY | 2023-11-26 10:45 | XMS_ITS | Encounter Summary ---
[facility] Address [facility] [place] [address] Care Team Providers Care Visual Educator Name Role Phone Lolly Oliveira MD Primary Care Provider [phone] Reason for Visit * Auth/Cert (Routine) Specialty Diagnoses / Procedures Referred By Contac t Referred To Contact Diagnoses Left bundle-branch block, unspecified Other cardiomyopathies Left bundle branch block [I44.7]Nonischemic cardiomyopathy [I42.8] Procedures PRG CATH PLMT LEFT HEART CATH & ARTS W/INJ & ANGIO IMG S&I ELECTROPHYSIOLOGY PROCEDURE Lalit Mcmahon MD [facility] [place] [address] [facility] Referral ID Status Reason Start Date Expiration Date Visits Re quested Visits Authorized [id number] 1 1 Encounter Details Date Type Department Care Team (Late st Contact Info) Description 07/23/2022 1:08 PM EDT Anesthesia [place] [address] Monae Gonzalez MD [facility] [place] [address] Maria Elena Snyder CRNA [facility] [place] [address] Anesthesia Record Procedure Summary Procedure Name Responsible [...] 1307; median cubital vein (antecubital fossa), right; lpgz-wcc-iydgga catheter system; Anatomical Landmarks; 20 gauge; 07/24/22; [...] 1343; metacarpal vein (top of hand), left; vist-jui-uweywl catheter system; Anatomical Landmarks; US Not Used; [...] Procedure Summary Date: 07/23/22 Room / Location: [facility] A-LAB ROOM 3 / [facility] EP LABS Anesthesia Start: 1308 Anesthesia Stop: 1633 Procedure: ELECTROPHYSIOLOGY PROCEDURE (Left) Diagnosis: Left bundle branch block Nonischemic cardiomyopathy (Left bundle branch block [I44.7]Nonischemic cardiomyopathy [I42.8]) Providers: Lalit Mcmahon MD Responsible Provider: Monae Gonzalez MD Anesthesia Type: general ASA Status: 4 All Anesthesia Providers: Anesthesiologist: Monae Gonzalez MD; Dominique Sen MD CUSTOM BOOKBINDER: Maria Elena Snyder CRNA Vitals Value Taken Time BP 131/46 07/23/22 1700 Temp 36.7 ??C (98.1 ??F) 07/23/22 1627 Pulse 67 07/23/22 1703 Resp 14 07/23/22 1703 SpO2 98 % 07/23/22 1703 Pain Level Vitals shown include unvalidated device data. Patient Location: PACU/[facility] Level of Consciousness: Conscious but [...] and Nonischemic CM (EF 15-20%)who presents for MECHANICAL ASSEMBLY TECHNICIAN-D. No prior anesthetic records. Pt states that [...] daughter/son and patient who. Plan discussed with CUSTOM BOOKBINDER. Anesthesia Screening documented in this encounter Plan of Treatment Upcoming Encounters Date Type Department Care Team (Late st Contact Info) Description 01/16/2024 10:00 AM [facility] Hospital Encounter [place] [address] Arrived documented as of this [...] Starting on Myra 07/23/22 at 1539, Until Ymra 07/23/22 at 1633, Anesthesia Intra-op, Routine Given [...] mg/mL) multi-dose injection Intravenous, PRN, Starting on Myar 07/23/22 at 1333, Until Myra 07/23/22 at 1633, Anesthesia Intra-op, Routine Given 07/23/2022 1:33 PM EDT 50 mg sugammadex (Bridion) 100 mg/mL injection Intravenous, PRN, Starting on Myra 07/23/22 at 1549, Until Myra 07/23/22 at 1633, Anesthesia Intra-op, Routine Given 07/23/2022 3:49 PM EDT 200 mg documented in this encounter Care Teams Visual Educator Relationship Specialty Start Date End Date Lolly Oliveira MD [address] [place] [address] PCP - General 07/17/13 documented as of this encounter
--- OUTSIDE RECORDS SUMMARY | 2023-11-26 10:45 | XMS_ITS | Encounter Summary ---
Author Organization [facility] [place] [address] Care Team Providers Care Turfgrass Technician Name Role Phone Lolly Oliveira MD Primary Care Provider [phone] Reason for Visit * Reason Comments Follow-up Encounter Details Date Type Department Care Team (Late st Contact Info) Description 06/06/2021 8:45 AM EDT Office Visit Dermatology at [address] [address] Clay Ramírez MD [address] [facility] [place] [address] Psoriasis, guttate Social History Tobacco Use Types [...] [facility] Hospital Encounter Non-[place] [address] Arrived documented as of this encounter Visit Diagnoses Diagnosis Psoriasis, guttate Other psoriasis documented in this encounter Care Teams Turfgrass Technician Relationship Specialty Start Date End Date Lolly Oliveira MD [address] [place] [address] PCP - General 07/17/13 documented as of this encounter
--- OUTSIDE RECORDS SUMMARY | 2023-11-26 10:45 | XMS_ITS | Encounter Summary ---
Author Organization [facility] [place] [address] Care Team Providers Care Rubber Turner Name Role Phone Lolly Oliveira MD Primary Care Provider [phone] Reason for Visit * Reason Onset Date Comments Pre Procedure Call 07/01/2022 Encounter Details Date Type Department Care Team (Late st Contact Info) Description 07/01/2022 Telephone Cardiology at [address] [phone] Rosenda Sutton RN Pre Procedure Call Social History Tobacco Use Types Packs/Day Years Used Date Smoking Tobacco: Never Sex and Gender Information Value Date Recorded Sex Assigned at Not on file Gender Identity Not on file Sexual Orientation Not on file documented as of this encounter Miscellaneous Notes * Telephone Encounter - Rosenda Sutton RN - 07/01/2022 9:30 AM EDTSummary: Pre Procedure Call: COMPRESSOR STATION OPERATOR implant EP ENGLISH HORN PLAYER COORDINATION CHECKLIST Patient Name: Luna Mott Patient Performing Cook Apprentice Pastry: Lalit Mcmahon Referring Provider: Lolly Oliveira Date of Procedure: 07/23/22 Arrival Time/ Case Time: 12:00 pm / 1:00 pm Check In Location: Facility Service Associate Desk 4W Date Patient was Called: 07/01/22 Procedure: COMPRESSOR STATION OPERATOR Company: [employer] Type: COMPRESSOR STATION OPERATOR-D Laterality: LEFT Orders: Yes Lab Orders: [...] overnight , understands that they will need mobile lounge driver on day of discharge Notified pt that Goff catheter may be placed on day of procedure depending on type & duration of case. documented in this encounter Plan of Treatment Upcoming Encounters Date Type Department Care Team (Late st Contact Info) Description 01/16/2024 10:00 AM [facility] Hospital Encounter Non-[place] [address] Arrived documented as of this encounter Visit Diagnoses Not on filedocumented in this encounter Care Teams Rubber Turner Relationship Specialty Start Date End Date Lolly Oliveira MD [address] [place] [address] PCP - General 07/17/13 documented as of this encounter
--- OUTSIDE RECORDS SUMMARY | 2023-11-26 10:45 | XMS_ITS | Encounter Summary ---
Author Organization [facility] [address] Care Team Providers Care Elementary Assistant Teacher Name Role Phone Lolly Oliveira MD Primary Care Provider [phone] Reason for Visit * Reason Onset Date Comments Post Procedure Call 07/30/2022 Encounter Details Date Type Department Care Team (Late st Contact Info) Description 07/30/2022 Notes Only Cardiology at [address] [phone] Rosenda Sutton, RN Post Procedure Call Social [...] 07/30/2022 9:59 AM EDTSummary: Post Procedure Call: FIELD APPRAISER implant EP RN Post-Procedure Note: Date of [...] Note: Follow-up Recommendations for Providers: - s/p FIELD APPRAISER-D implant - post implant QRS 130 ms [...] [facility] Hospital Encounter Non[place] [address] Arrived documented as of this encounter Visit Diagnoses Not on filedocumented in this encounter Care Teams Elementary Assistant Teacher Relationship Specialty Start Date End Date Lolly Oliveira MD [address] [place] [address] PCP - General 07/17/13 documented as of this encounter
--- OUTSIDE RECORDS SUMMARY | 2023-11-26 10:45 | XMS_ITS | Encounter Summary ---
Author Organization [facility] [place] [address] Care Team Providers Care Display Artist Name Role Phone Lolly Oliveira MD Primary Care Provider [phone] Reason for Referral * Diagnostic Test (Routine) - Closed Specialty Diagnoses / Procedures Referred By Contac t Referred To Contact Radiology Diagnoses Left bundle branch block Nonischemic cardiomyopathy Procedures MRI Cardiac Morphology Function With Flow Velocity Quantification [facility] Contrast MRI Cardiac Morphology Function wwo Contrast Lalit Mcmahon MD [facility] [place] [address] [place] [address] Referral ID Status Reason Start Date Expiration Date V isits Requested Visits Authorized [id number] Closed Specialty Service Requested 05/06/2022 11/07/2023 2 1 Reason for Visit * Diagnostic Test (Routine) - Closed Specialty Diagnoses / Procedures Referred By Contac t Referred To Contact Radiology Diagnoses Left bundle branch block Nonischemic cardiomyopathy Procedures MRI Cardiac Morphology Function With Flow Velocity Quantification o Contrast MRI Cardiac Morphology Function wwo Contrast Lalit Mcmahon MD [facility] [place] [address] [place] [address] Referral ID Status Reason Start Date Expiration Date V isits Requested Visits Authorized [id number] Closed Specialty Service Requested 05/06/2022 11/07/2023 2 1 Encounter Details Date Type Department Care Team (Latest Contact Info) Description 07/14/2022 9:08 AM EDT Hospital Encounter MRI at [facility] [place] [phone] Lalit Mcmahon MD [facility] [address] [place] [address] Left bundle branch block; Nonischemic cardiomyopathy Discharge [...] with spacer fluticasone propionate (Flonase) 50 mcg/actuation [place], Suspension 1 spray by Each Nare route [...] 71 y.o. : 1950 [address] [facility] [address] Female [phone] (home) No relevant phone numbers on file. Lolly Oliveira MD None Allergies Allergen Reactions ??? Sulfa (Sulfonamide Antibiotics) Date/Time of call: July 07, 2022/11:03 AM/ PREVIOUS MRI SCAN? HEIGHT: WEIGHT: SCHEDULED SCAN: MRI CARDIAC MORPHOLOGY FUNCTION WITH FLOW VELOCITY QUANTIFICATION WWO CONTRAST [[id number]] Order Questions Answers Where will study be performed? [facility] Radiology [120] SUBJECTIVE: Very Claustrophobic CAN [...] ( KV ) You must have a armor reconnaissance vehicle driver present when you check in. This patient has been informed that they require a armor reconnaissance vehicle driver to drive them home after this procedure. In the absence of a armor reconnaissance vehicle driver, IR will not be able to sedate for your scan. Pt verbalized understanding of these instructions during the pre-procedure education via phone. Yes Name of armor reconnaissance vehicle driver: Daughter Phone number: PRIOR SCAN DATE/S SEDATION TYPE SUCCESSFUL 07/14/22 MRI Cardiac Morphology Function with Flow Velocity Quantification wwo Contrast Ativan 1mg x 1 dose Pass Revised 08/03/17 documented in this encounter Plan of Treatment Upcoming Encounters Date Type Department Care Team (Late st Contact Info) Description 01/16/2024 10:00 AM [facility] Hospital Encounter Non-[place] [address] Arrived documented as of this encounter Procedures [...] who have questions please contact the health medical care evaluation specialist that requested your imaging first. ? Electronically signed by: Greyson Herron MD, [facility] ([phone]), at 07/15/2022 9:53 AM Narrative 07/15/2022 9:53 [...] patients who have questions please contactthe health medical care evaluation specialist that requested your imaging first. Lalit [...] mg documented in this encounter Care Teams Display Artist Relationship Specialty Start Date End Date Lolly Oliveira MD [address] [place] [address] PCP - General 07/17/13 documented as of this encounter
--- OUTSIDE RECORDS SUMMARY | 2023-11-26 10:45 | XMS_ITS | Encounter Summary ---
Author Organization [facility] Address [facility] [place] [address] Care Team Providers Care Making Machine Operator Name Role Phone Lolly Oliveira MD Primary Care Provider [phone] Encounter Details Date Type Department Care Team (Late st Contact Info) Description 07/16/2022 Telephone Cardiology at [address] [phone] Lalit Mcmahon MD [facility] [place] [address] Social History Tobacco Use Types Packs/Day Years [...] her nonischemic cardiomyopathy. She is scheduled for FINE GRADER-D implantation next week and looks forward to the procedure. We will see each other next week. Lalit Mcmahon MD [facility] Cardiac Electrophysiology 07/16/2022 8:52 AM documented in this encounter Plan of Treatment Upcoming Encounters Date Type Department Care Team (Late st Contact Info) Description 01/16/2024 10:00 AM EST Hospital Encounter Non[place] [address] Arrived documented as of this encounter Visit Diagnoses Not on filedocumented in this encounter Care Teams Making Machine Operator Relationship Specialty Start Date End Date Lolly Oliveira MD [address] [place] [address] PCP - General 07/17/13 documented as of this encounter
--- OUTSIDE RECORDS SUMMARY | 2023-11-26 10:45 | XMS_ITS | Encounter Summary ---
Author Organization [facility] [place] [address] Care Team Providers Care Drafter (Cad) Electronic Name Role Phone Lolly Oliveira MD Primary Care Provider [phone] Reason for Visit * Reason Onset Date Comments Other 07/24/2022 Implanted Cardia c Device Teaching/Education Encounter Details Date Type Department Care Team (Late st Contact Info) Description 07/24/2022 Notes Only Cardiology at [address] [phone] Letha Arroyo Other (Implanted Cardiac Device Teaching/Education) [...] to call the Cardiac Device Clinic at [phone] with any questions. Plan: Post op check: [...] st Contact Info) Description 01/16/2024 10:00 AM [facility] Hospital Encounter Non-Invasive [place] [address] Arrived documented as of this encounter Visit Diagnoses Not on filedocumented in this encounter Care Teams Drafter (Cad) Electronic Relationship Specialty Start Date End Date Lolly Oliveira MD [address] [place] [address] PCP - General 07/17/13 documented as of this encounter
--- OUTSIDE RECORDS SUMMARY | 2023-11-26 10:45 | XMS_ITS | Encounter Summary ---
Author Organization [facility] Address [place] [address] Care Team Providers Care Production Checker Name Role Phone Lolly Oliveira MD Primary Care Provider [phone] Encounter Details Date Type Department Care Team (Late st Contact Info) Description 01/29/2023 Notes Only Cardiology at [address] [address] Merle Lin PA [facility] [place] [address] Social History Tobacco Use Types Packs/Day Years Used Date Smoking Tobacco: Never Alcohol Use Standard Drinks/Week Comments Not Currently 0 (1 standard drink = 0.6 oz pur e alcohol) [facility] Inpatient Questions Answer Date Recorded Does [...] pdf document Date of transmission: 01/29/2023 Device career counselor: BSI Device type: FABRICATION MANAGER-D Presenting rhythm: /RVP/LVP AP 21% Right SPECIAL EFFECTS MAKEUP ARTIST 100% Left SPECIAL EFFECTS MAKEUP ARTIST: 100% Battery: 10.5 years [employer] Index rising in setting of increasing S3 intensity, increasing respiratory rate, increasing night heart rate, and increasing mean heart rate. MICKEY Villa 01/29/2023 9:06 AM documented in this encounter Plan of Treatment Upcoming Encounters Date Type Department Care Team (Late st Contact Info) Description 01/16/2024 10:00 AM EST Hospital Encounter Non-Invasive [place] [address] Arrived documented as of this encounter Visit Diagnoses Not on filedocumented in this encounter Care Teams Production Checker Relationship Specialty Start Date End Date Lolly Oliveira MD [address] [place] [address] PCP - General 07/17/13 documented as of this encounter
--- OUTSIDE RECORDS SUMMARY | 2023-11-26 10:45 | XMS_ITS | Encounter Summary ---
Author Organization [facility] Address [facility] [place]ie brielle [address] Care Team Providers Care Assistant Auditor Name Role Phone Lolly Oliveira MD Primary Care Provider [phone] Encounter Details Date Type Department Care Team (Late st Contact Info) Description 11/11/2022 Orders Only Cardiology at [address] [phone] Lalit Mcmahon MD [facility] [place] [address] Nonischemic cardiomyopathy Social History Tobacco Use Types Packs/Day Years Used Date Smoking Tobacco: Never Alcohol Use Standard Drinks/Week Comments Not Currently 0 (1 standard drink = 0.6 oz pur e alcohol) [facility] Inpatient Questions Answer Date Recorded Does Anyone [...] [facility] Hospital Encounter Non-[place] [address] Arrived documented as of this encounter Visit Diagnoses Diagnosis Nonischemic cardiomyopathy Other primary cardiomyopathies documented in this encounter Care Teams Assistant Auditor Relationship Specialty Start Date End Date Berrian, Lolly M, MD [address] [place] [address] PCP - General 07/17/13 documented as of this encounter
--- OUTSIDE RECORDS SUMMARY | 2023-11-26 10:45 | XMS_ITS | Encounter Summary ---
[place] [address] Care Team Providers Care Consulting Utility Forester Name Role Phone Lolly Oliveira MD Primary Care Provider [phone] Encounter Details Date Type Department Care Team [...] AM EST Hospital Encounter Non-[place] [address] Arrived documented as of this encounter Visit Diagnoses Not on filedocumented in this encounter Care Teams Consulting Utility Forester Relationship Specialty Start Date End Date Lolly Oliveira MD [address] [place] [address] PCP - General 07/17/13 documented as of this encounter
--- OUTSIDE RECORDS SUMMARY | 2023-11-26 10:45 | XMS_ITS | Encounter Summary ---
Author Organization [facility] [place] [address] Care Team Providers Care Marketing Communications Assistant Name Role Phone Lolly Oliveira MD Primary Care Provider [phone] Encounter Details Date Type Department Care Team (Latest Contact Info) Description 10/18/2023 10:00 AM EDT - 10/18/2023 11:59 PM EDT Hospital Encounter Non-[place] [address] Discharge Disposition: Home Social History Tobacco Use [...] with spacer fluticasone propionate (Flonase) 50 mcg/actuation [place], Suspension 1 spray by Each Nare route daily as needed. documented as of this encounter Plan of Treatment Upcoming Encounters Date Type Department Care Team (Late st Contact Info) Description 01/16/2024 10:00 AM EST Hospital Encounter Non-[place] [address] Arrived documented as of this encounter Procedures [...] filedocumented in this encounter Care Teams Marketing Communications Assistant Relationship Specialty Start Date End Date Lolly Oliveira MD [address] [place] [address] PCP - General 07/17/13 documented as of this encounter
--- OUTSIDE RECORDS SUMMARY | 2023-11-26 10:45 | XMS_ITS | Encounter Summary ---
Author Organization [facility] [place] [address] Care Team Providers Care Music Typographer Name Role Phone Lolly Oliveira MD Primary Care Provider [phone] Encounter Details Date Type Department Care Team (Late st Contact Info) Description 05/18/2023 Telephone Dermatology at [address] [address] Nora Meredith LPN Social History [...] 05/18/2023 2:24 PM EDT Received call from Leoonr at [facility] advising the patient will [...] [facility] Hospital Encounter Non-Invasive [place] [address] Arrived documented as of this encounter Visit Diagnoses Not on filedocumented in this encounter Care Teams Music Typographer Relationship Specialty Start Date End Date Lolly Oliveira MD [address] [place] [address] PCP - General 07/17/13 documented as of this encounter
--- OUTSIDE RECORDS SUMMARY | 2023-11-26 10:45 | XMS_ITS | Encounter Summary ---
Author Organization [facility] [place] [address] Care Team Providers Care Rn Urgent Care Name Role Phone Lolly Oliveira MD Primary Care Provider [phone] Encounter Details Date Type Department Care Team (Latest Contact Info) Description 10/23/2022 10:00 AM EDT - 10/23/2022 11:59 PM EDT Hospital Encounter Non-[place] [address] Discharge Disposition: Home Social History Tobacco Use [...] with spacer fluticasone propionate (Flonase) 50 mcg/actuation [place], Suspension 1 spray by Each Nare route [...] [facility] Hospital Encounter Non-[place] [address] Arrived documented as of this [...] filedocumented in this encounter Care Teams Rn Urgent Care Relationship Specialty Start Date End Date Lolly Oliveira MD [address] [place] [address] PCP - General 07/17/13 documented as of this encounter
--- OUTSIDE RECORDS SUMMARY | 2023-11-26 10:45 | XMS_ITS | Encounter Summary ---
Author Organization [facility] [place] [address] Care Team Providers Care Lavatory Attendant Name Role Phone Lolly Oliveira MD Primary Care Provider Encounter Details Date Type Department Care Team (Late st Contact Info) Description 10/09/2021 Telephone Dermatology at [address] [address] Nora Meredith LPN Social History [...] [facility] Hospital Encounter Non-[place] [address] Arrived documented as of this encounter Visit Diagnoses Not on filedocumented in this encounter Care Teams Lavatory Attendant Relationship Specialty Start Date End Date Lolly Oliveira MD [address] [place] [address] PCP - General 07/17/13 documented as of this encounter
--- OUTSIDE RECORDS SUMMARY | 2023-11-26 10:45 | XMS_ITS | Encounter Summary ---
Author Organization [facility] [place] [address] Care Team Providers Care Mix Chemist Name Role Phone Lolly Oliveira MD Primary Care Provider [phone] Encounter Details Date Type Department Care Team (Latest Contact Info) Description 01/21/2023 10:00 AM EST - 01/21/2023 11:59 PM EST Hospital Encounter Non-Invasive [place] [address] Discharge Disposition: Home Social History Tobacco Use [...] with spacer fluticasone propionate (Flonase) 50 mcg/actuation [place], Suspension 1 spray by Each Nare route [...] Encounter Non-In[place] [address] Arrived documented as of this [...] on filedocumented in this encounter Care Teams Mix Chemist Relationship Specialty Start Date End Date Lolly Oliveira MD [address] [place] [address] PCP - General 07/17/13 documented as of this encounter
--- OUTSIDE RECORDS SUMMARY | 2023-11-26 10:45 | XMS_ITS | Encounter Summary ---
Author Organization [facility] [place] [address] Care Team Providers Care Order Schedule Clerk Name Role Phone Lolly Oliveira MD Primary Care Provider [phone] Encounter Details Date Type Department Care Team (Latest Contact Info) Description 04/21/2023 10:00 AM EST - 04/21/2023 11:59 PM EST Hospital Encounter [place] [phone] Discharge Disposition: Home Social History Tobacco Use [...] spacer fluticasone propionate (Flonase) 50 mcg/actuation [place], Suspension 1 spray by Each Nare route [...] AM EST Hospital Encounter [place] [address] Arrived documented as of this [...] on filedocumented in this encounter Care Teams Order Schedule Clerk Relationship Specialty Start Date End Date Lolly Oliveira MD [address] [place] [address] PCP - General 07/17/13 documented as of this encounter
--- OUTSIDE RECORDS SUMMARY | 2023-11-26 10:45 | XMS_ITS | Encounter Summary ---
Author Organization [facility] [place] [address] Care Team Providers Care Conference Coordinator Name Role Phone Lolly Oliveira MD Primary Care Provider [phone] Encounter Details Date Type Department Care Team (Late st Contact Info) Description 05/18/2023 Refill Dermatology at [address] [phone] Nora Meredith LPN Social History [...] patient. She voiced understanding. Order sent to [facility] drug. documented in this encounter Plan of Treatment Upcoming Encounters Date Type Department Care Team (Late st Contact Info) Description 01/16/2024 10:00 AM EST Hospital Encounter [place] [address] Arrived documented as of this encounter Visit Diagnoses Not on filedocumented in this encounter Care Teams Conference Coordinator Relationship Specialty Start Date End Date Lolly Oliveira MD [address] [place] [address] PCP - General 07/17/13 documented as of this encounter
--- OUTSIDE RECORDS SUMMARY | 2023-11-26 10:45 | XMS_ITS | Encounter Summary ---
Author Organization [facility] [place] [address] Care Team Providers Care Log Cut Off Sawyer Name Role Phone Lolly Oliveira MD Primary Care Provider [phone] Encounter Details Date Type Department Care Team (Latest Contact Info) Description 07/20/2023 10:00 AM EDT - 07/20/2023 11:59 PM EDT Hospital Encounter [place] [address] Discharge Disposition: Home Social History Tobacco Use [...] with spacer fluticasone propionate (Flonase) 50 mcg/actuation [place], Suspension 1 spray by Each Nare route daily as needed. documented as of this encounter Plan of Treatment Upcoming Encounters Date Type Department Care Team (Late st Contact Info) Description 01/16/2024 10:00 AM [facility] Hospital Encounter Non-[place] [address] Arrived documented as of this encounter Procedures [...] on filedocumented in this encounter Care Teams Log Cut Off Sawyer Relationship Specialty Start Date End Date Lolly Oliveira MD [address] [place] [address] PCP - General 07/17/13 documented as of this encounter
--- OUTSIDE RECORDS SUMMARY | 2023-11-26 10:45 | XMS_ITS | Clinical Summary ---
Author Organization [facility] [place] [address] Care Team Providers Care Geophysical Support Specialist Name Role Phone Lolly Oliveira MD Primary Care Provider [phone] Allergies Active Allergy Reactions Criticality Noted Date [...] spacer Active fluticasone propionate (Flonase) 50 mcg/actuation [place], Suspension 1 spray by Each Nare route [...] PM EDT Hospital Encounter Non-[place] [address] Discharge Disposition: Home from Last [...] AM EST Hospital Encounter Non-[place] [address] Arrived Health Maintenance Due Date Last Done [...] series) 11/07/2023 Medical Devices Implanted Type Area Wound Care Specialist Device Identifier Shelf Expiration Date Model / Serial / Lot Bsx: [id number]: 561699-8/18/2 023 Implanted: by Lalit Mcmahon MD (Quantity not on file) Defibrillator Chest Wall [employer] [id number] / [id number] / Bsx: [id number]: 003659-1/18/2 023 Implanted: by Lalit Mcmahon MD (Quantity not on file) Lead Heart [employer] [id number] / [id number] / Bsx: [id number]: [id number] Implanted: by Lalit Mcmahon MD (Quantity not on file) Lead Heart [employer] [id number] / [id number] / Bsx: [id number]: 474291-0/18/2 023 Implanted: by Lalit Mcmahon MD (Quantity not on file) Lead Heart [employer] [id number] / [id number] / Advance Directives * Attempt Cardiopulmonary Resuscitation - Inpatient (Latest Code Status on File) Date Activated Date Inactivated Comments 07/23/2022 4:30 PM 07/24/2022 12:32 PM Question Answer Comments Code Status decision made by: Patient Care Teams Geophysical Support Specialist Relationship Specialty Start Date End Date Lolly Oliveira MD [address] [place] [address] PCP - General 07/17/13
--- OUTSIDE RECORDS SUMMARY | 2023-11-26 10:45 | XMS_ITS | Encounter Summary ---
Author Organization [facility] [place] [address] Care Team Providers Care Coatings Inspector Name Role Phone Lolly Oliveira MD Primary Care Provider [phone] Encounter Details Date Type Department Care Team (Late st Contact Info) Description 03/17/2023 Telephone Cardiology at [address] [phone] Saranya Ma Social History Tobacco Use Types Packs/Day Years Used Date Smoking Tobacco: Never Alcohol Use Standard Drinks/Week Comments Not Currently 0 (1 standard drink = 0.6 oz pur e alcohol) [facility] Inpatient Questions Answer Date Recorded Does Anyone [...] AM EST Echo order faxed to [facility] at [phone]. No Prior auth needed. Ref #:[id number]. Saranya Ma Sr. Clinical Procedure [place]/Core Cutter And Reamer documented in this encounter Plan of Treatment Upcoming Encounters Date Type Department Care Team (Late st Contact Info) Description 01/16/2024 10:00 AM [facility] Hospital Encounter Non-Invasive [place] [address] Arrived documented as of this encounter Visit Diagnoses Not on filedocumented in this encounter Care Teams Coatings Inspector Relationship Specialty Start Date End Date Lolly Oliveira MD [address] [place] [address] PCP - General 07/17/13 documented as of this encounter
--- OUTSIDE RECORDS SUMMARY | 2023-11-26 10:45 | XMS_ITS | Encounter Summary ---
Author Organization [place] [address] Care Team Providers Care Labor Crew Supervisor Name Role Phone Lolly Oliveira MD Primary Care Provider Encounter Details Date Type Department Care Team (Late st Contact Info) Description 11/16/2022 Telephone Cardiology at [address] [phone] Luna Rousseau, RN Social History Tobacco Use Types Packs/Day Years Used Date Smoking Tobacco: Never Alcohol Use Standard Drinks/Week Comments Not Currently 0 (1 standard drink = 0.6 oz pur e alcohol) [facility] Inpatient Questions Answer Date Recorded [...] BP today was 118/57 at CR at [facility]. Pt is going twice a [...] [facility] Encounter Non-Invasive [place] [address] Arrived documented as of this encounter Visit Diagnoses Not on filedocumented in this encounter Care Teams Labor Crew Supervisor Relationship Specialty Start Date End Date Lolly Oliveira MD [address] [place] [address] PCP - General 07/17/13 documented as of this encounter
--- OUTSIDE RECORDS SUMMARY | 2023-11-26 10:45 | XMS_ITS | Encounter Summary ---
Author Organization [facility] [place] [place] [address] Care Team Providers Care Cooking Casing And Drying Supervisor Name Role Phone Lolly Oliveira MD Primary Care Provider [phone] Reason for Visit * Reason Comments Follow-up Encounter Details Date Type Department Care Team (Late st Contact Info) Description 07/02/2022 8:00 AM EDT Office Visit Dermatology at [address] [phone] Clay Ramírez MD [address] [facility], [place] [address] Psoriasis, guttate Social History Tobacco Use Types [...] [facility] Hospital Encounter [place] [address] Arrived documented as of this encounter Visit Diagnoses Diagnosis Psoriasis, guttate Other psoriasis documented in this encounter Care Teams Cooking Casing And Drying Supervisor Relationship Specialty Start Date End Date Lolly Oliveira MD [address] [place] [address] PCP - General 07/17/13 documented as of this encounter
--- OUTSIDE RECORDS SUMMARY | 2023-11-26 10:45 | XMS_ITS | Encounter Summary ---
Author Organization [facility] Address [facility] [place] [address] Care Team Providers Care Utility Sales And Service Manager Name Role Phone Lolly Oliveira MD Primary Care Provider [phone] Reason for Referral * Diagnostic Test (Routine) - Closed Specialty Diagnoses / Procedures Referred By Contkoki t Referred To Contact Cardiology Diagnoses Nonischemic cardiomyopathy Biventricular ICD (implantable cardioverter-defibrillator) in place Procedures Echocardiogram Transthoracic Lalit Mcmahon MD [facility] [place] [address] Referral ID Status Reason Start Date Expiration Date V isits Requested Visits Authorized [id number] Closed Specialty Service Requested 03/15/2023 09/11/2023 1 1 Encounter Details Date Type Department Care Team (Late st Contact Info) Description 03/15/2023 Orders Only Cardiology at [address] [phone] Lalit Mcmahon MD [facility] [place] [address] Nonischemic cardiomyopathy; Biventricular ICD (implantable cardioverter-defibrill ator) [...] AM EST Hospital Encounter Non-Invasive [place] [address] Arrived Scheduled Orders Name Type Priority Associated Diagnoses Order Schedule Echocardiogram Transthoracic Echocardiography Routine Nonischemic cardiomyopathy Biventricular ICD (implantable cardioverter-defibr illator) in place Expected: 05/05/2023, Expires: 11/04/2023 documented as of this encounter Visit Diagnoses Diagnosis Nonischemic cardiomyopathy Other primary cardiomyopathies Biventricular ICD (implantable cardioverter-defibrillator) in place documented in this encounter Care Teams Utility Sales And Service Manager Relationship Specialty Start Date End Date Lolly Oliveira MD [address] [place] [address] PCP - General 07/17/13 documented as of this encounter
--- OUTSIDE RECORDS SUMMARY | 2023-11-26 10:45 | XMS_ITS | Encounter Summary ---
Author Organization [facility] [place] [address] Care Team Providers Care Cellar Pumper Name Role Phone Lolly Oliveira MD Primary Care Provider [phone] Encounter Details Date Type Department Care Team (Late st Contact Info) Description 03/15/2023 Telephone Cardiology at [address] [phone] Saranya Ma Social History Tobacco Use Types Packs/Day Years Used Date Smoking Tobacco: Never Alcohol Use Standard Drinks/Week Comments Not Currently 0 (1 standard drink = 0.6 oz pur e alcohol) [facility] Inpatient Questions Answer Date Recorded Does [...] her to have an echo done at [facility] prior to her appt withtxm there on 05/12/23. Message sent to Dr. Mcmahon asking him to put order in if he would like her to have this done. Saranya Ma Sr. Clinical Procedure Del[employer] Fabrics Presser/Supervisory Geographer documented in this encounter Plan of Treatment Upcoming Encounters Date Type Department Care Team (Late st Contact Info) Description 01/16/2024 10:00 AM EST Hospital Encounter Non-Invasive [place] [address] Arrived documented as of this encounter Visit Diagnoses Not on filedocumented in this encounter Care Teams Cellar Pumper Relationship Specialty Start Date End Date Lolly Oliveira MD [address] [place] [address] PCP - General 07/17/13 documented as of this encounter
--- OUTSIDE RECORDS SUMMARY | 2023-11-26 10:45 | XMS_ITS | Encounter Summary ---
Author Organization [facility] [place] [address] Care Team Providers Care Corporate Operations Compliance Manager Name Role Phone Lolly Oliveira MD Primary Care Provider [phone] Reason for Visit * Reason Comments Psoriasis Encounter Details Date Type Department Care Team (Late st Contact Info) Description 04/09/2022 1:45 PM EST Office Visit Dermatology at [address] [phone] Clay Ramírez MD [address] [facility], [place] [address] Psoriasis, guttate Social History Tobacco Use Types [...] EST Hospital Encounter Non-Invasive [place] [address] Arrived documented as of this encounter Visit Diagnoses Diagnosis Psoriasis, guttate Other psoriasis documented in this encounter Care Teams Corporate Operations Compliance Manager Relationship Specialty Start Date End Date Lolly Oliveira MD [address] [place] [address] PCP - General 07/17/13 documented as of this encounter
--- OUTSIDE RECORDS SUMMARY | 2023-11-26 10:45 | XMS_ITS | Encounter Summary ---
Author Organization [facility] [place] [address] Care Team Providers Care Technical Sales Support Manager Name Role Phone Lolly Oliveira MD Primary Care Provider [phone] Reason for Visit * Reason Comments Follow-up 8 weeks UVB treatmen t twice weekly Encounter Details Date Type Department Care Team (Late st Contact Info) Description 07/19/2023 11:00 AM EDT Office Visit Dermatology at [address] [phone] Clay Ramírez MD [address] [facility] [address] A DERMATOLOGY [place], [place] [phone] Psoriasis Social History Tobacco Use Types Packs/Day [...] of this encounter Progress Notes * Clay Raímrez MD - 07/19/2023 11:00 AM EDT Problem: [...] [facility] Hospital Encounter Non-Invasive [place] [address] Arrived documented as of this encounter Visit Diagnoses Diagnosis Psoriasis Other psoriasis documented in this encounter Care Teams Technical Sales Support Manager Relationship Specialty Start Date End Date Lolly Oliveira MD [address] [place] [address] PCP - General 07/17/13 documented as of this encounter
--- OUTSIDE RECORDS SUMMARY | 2023-11-26 10:45 | XMS_ITS | Encounter Summary ---
[place] [address] Care Team Providers Care Chemistry Intern Name Role Phone Lolly Oliveira MD Primary Care Provider [phone] Encounter Details Date Type Department Care Team [...] AM EST Hospital Encounter Non-Invasive [place] [address] Arrived documented as of this encounter Visit Diagnoses Not on filedocumented in this encounter Care Teams Chemistry Intern Relationship Specialty Start Date End Date Lolly Oliveira MD [address] [place] [address] PCP - General 07/17/13 documented as of this encounter
--- OUTSIDE RECORDS SUMMARY | 2023-11-26 10:45 | XMS_ITS | Encounter Summary ---
Author Organization [facility] [place] [address] Care Team Providers Care Building Serviceman Name Role Phone Lolly Oliveira MD Primary Care Provider [phone] Reason for Referral * Diagnostic Test (Routine) - Closed Specialty Diagnoses / Procedures Referred By Contac t Referred To Contact Radiology Diagnoses Left bundle branch block Nonischemic cardiomyopathy Procedures MRI Cardiac Morphology Function With Flow Velocity Quantification wwo Contrast MRI Cardiac Morphology Function wwo Contrast Lalit Mcmahon MD [facility] [place] [address] [place] [address] Referral ID Status Reason Start Date Expiration Date V isits Requested Visits Authorized [id number] Closed Specialty Service Requested 05/06/2022 11/07/2023 2 1 Encounter Details Date Type Department Care Team (Late st Contact Info) Description 05/06/2022 Orders Only Cardiology at [address] [phone] Lalit Mcmahon MD [facility] [place] [place] [address] Left bundle branch block; Nonischemic cardiomyopathy Social [...] AM EST Hospital Encounter Non-Invasive [place] [address] Arrived documented as of this encounter Results [...] have questions please contact the health healthcare sales representative that requested your imaging first. ? Narrative [...] who have questions please contactthe health healthcare sales representative that requested your imaging first. Lalit Mcmahon MD IMG MRI ORDERABLES documented in this encounter Visit Diagnoses Diagnosis Left bundle branch block Other left bundle branch block Nonischemic cardiomyopathy Other primary cardiomyopathies Left bundle branch block Other left bundle branch block Nonischemic cardiomyopathy Other primary cardiomyopathies documented in this encounter Care Teams Building Serviceman Relationship Specialty Start Date End Date Lolly Oliveira MD [address] [place] [address] PCP - General 07/17/13 documented as of this encounter
--- OUTSIDE RECORDS SUMMARY | 2023-11-26 10:45 | XMS_ITS | Encounter Summary ---
Author Organization [facility] Address [facility] [place] [address] Care Team Providers Care Rehabilitation Services Director Name Role Phone Lolly Oliveira MD Primary Care Provider [phone] Reason for Visit * Auth/Cert (Routine) Specialty Diagnoses / Procedures Referred By Contac t Referred To Contact Diagnoses Left bundle-branch block, unspecified Other cardiomyopathies Left bundle branch block [I44.7]Nonischemic cardiomyopathy [I42.8] Procedures PRG CATH PLMT LEFT HEART CATH & ARTS W/INJ & ANGIO IMG S&I ELECTROPHYSIOLOGY PROCEDURE Lalit Mcmahon MD [facility] [place] [address] [facility] Referral ID Status Reason Start Date Expiration Date Visits Re quested Visits Authorized [id number] 1 1 Encounter Details Date Type Department Care Team (Latest Contact Info) Description 07/23/2022 11:39 AM EDT - 07/24/2022 10:23 AM EDT Hospital [place] [phone] Lalit Mcmahon MD [facility] [place] [address] Left bundle branch block; Nonischemic cardiomyopathy; Cardiac resynchronization therapy defibrillator (SURGERY SPECIALIST-D) in place Discharge Disposition: Home Social History [...] Luna Mott Patient Age: 71 y.o. Language: Latvian Race: White Ethnicity: Not nor Admit date: 07/23/2022 Discharge date and time: 07/24/22 Attending Physician: Lalit Mcmahon MD Discharge Physician: Lalit Mcmahon MD Follow-up Recommendations for Providers: - s/p SURGERY SPECIALIST-D implant - post implant QRS 130 ms - reviewed post-implant instructions - no medication changes - Follow up in device clinic for wound/device check in ~10 days ([facility]) Inpatient Provider Contact Information: Cardiac Electrophysiology - Discharge Diagnoses (Hospital Problems) and Secondary Diagnoses (Chronic Problems): Active Hospital Problems Diagnosis ??? HFrEF (heart failure with reduced ejection fraction) Resolved Hospital Problems No resolved problems to display. Active Non-Hospital Problems Diagnosis ??? Dermatofibroma ??? Nevus ??? Solar lentigo Operations/Major Procedures: 07/23/22: [facility] SURGERY SPECIALIST-D implant History of Presentation: 71 y.o. female with a history of HFrEF, LBBB, QRS >150, NYHA II who is POD#1 of SURGERY SPECIALIST-D implant ([employer]). Hospital Course: Elective admission for SURGERY SPECIALIST-D implant Admitted post-implant for pain management, telemetry [...] (heart failure with reduced ejection fraction) [I50.20] SURGERY SPECIALIST-D implant Admission Condition: good Indication for Admission: [...] g Refills: 3 fluticasone propionate 50 mcg/actuation Yeso, Suspension Commonly known as: Flonase 1 spray [...] incision. Make sure to use a clothes ironer (such as a towel) in between the [...] F. The office scheduling phone number is [phone]. ARM MOVEMENT RESTRICTIONS POST-IMPLANT - Do not [...] please call the Cardiac ElectrophysiologyTriage Nurse at [phone], option 3. General Instructions None Discharge References/Attachments [...] incision. Make sure to use a clothes ironer (such as a towel) in between the [...] F. The office scheduling phone number is [phone]. ARM MOVEMENT RESTRICTIONS POST-IMPLANT - Do not [...] please call the Cardiac ElectrophysiologyTriage Nurse at [phone], option 3. documented in this encounter Medications [...] with spacer fluticasone propionate (Flonase) 50 mcg/actuation Yeso, Suspension 1 spray by Each Nare route [...] Cardiac Electrophysiology Post-Implant Device Interrogation Luna Mott [id number] 07/24/2022 History: Luna Mott is a 71 y.o. female with a history of HFrEF, LBBB, QRS >150, NYHA II who is POD#1 of SURGERY SPECIALIST-D implant ([employer]). Overall feels well this morning. Ready [...] WOB Neuro- A&Ox3 Device Interrogation: Data ?? It Intern Model # Serial # Generator [employer] [id number] Atrial Lead [employer] [id number] [id number] RV Lead [employer] 0672 632309 LV Lead [employer] [id number] ?? Diagnostics Pacing Mode: DDD 60-130 Underlying Rhythm: [place] Atrial Episodes: None Ventricular Episodes: None FINAL PROGRAMMING: Pacing: Mode Lower rate (ppm) Upper rate (ppm) ?? DDD 60 130 VF: Rate (bpm) #Antitachycardia pacing First shock energy (J) ?? 200 Quick convert 41 VT: 170 Monitor only Monitor only ? Battery and Leads Impedances (ohms) Sensing (mV) Thresholds HV RA RV LV RA RV LV RA RV LV 73 [phone] (LVa) 7.7 13.1 >25 0.4V @ 0.4 ms 0.4V @ 0.4 ms 0.5 V @ 1.0 ms POD#1 CXR: All leads in nominal positioning Impression: 71 y.o. female who is s/p SURGERY SPECIALIST-D implant for LBBB, NYHA II, HFrEF. - Appropriate device function post-implant - CXR negative for post-implant complications - Changed sensed AV delay from 130 to 110 Plan: 1. Reviewed standard post-implant discharge instructions (see patient instructions) including arm restrictions, wound care, bathing, and driving 2. No medication changes. 3. Follow up in device clinic for wound/device check in ~10 days ([facility]) Fadi Nunez MD 07/24/2022 Pager: [phone] I met with the patient today and [...] agreement. ? Dr. Lalit Mcmahon, electrophysiology attending ([id number]) * Zaria Wright RN - 07/23/2022 8:28 [...] HF, QRS > 150 ms presents for SURGERY SPECIALIST-D placement. ROS: Denies recent fevers or chills [...] 0.9) flush 5 mL 5 mL Intravenous [id number] ramos MD ??? sodium chloride 0.9 % [...] HF, QRS > 150 ms presents for SURGERY SPECIALIST-D placement. Backup would be LBBAP lead. Antibiotics: cefazolin Rationales for, intended benefits and potential risk of planned procedures reviewed. The patient indicated understanding and agreement with the plan. Informed consent signed. Procedure checklist completed. Fadi Nunez MD Cardiac Electrophysiology Fellow [facility] Pager [phone] 07/23/2022 I met with the patient today [...] agreement. ? Dr. Lalit Mcmahon, electrophysiology attending ([id number]) documented in this encounter Miscellaneous Notes * Brief Op Note - Lalit Mcmahon MD - 07/23/2022 4:04 PM EDT Brief Operative Note Patient Name: Luna Mott : [id number] MR#: [id number] Case Date: 07/23/2022 Surgeon: Surgeon(s) and Role: [...] Hospital Encounter Non[place] [address] Arrived Scheduled Orders Name Type Priority Associated Diagnoses Orde r Schedule EKG 12 Lead ECG Routine Cardiac resynchronization therapy defibrillator (SURGERY SPECIALIST-D) in place One Time for 1 Occurrences [...] (Bezet) 522 ms MUSE SYSTEM Calculated R Cypress 78 degrees MUSE SYSTEM Calculated T Cypress -71 degrees MUSE SYSTEM INTERPRETATION AV dual-paced [...] have questions please contact the health career portals teacher that requested your imaging first. ? Electronically signed by: Kwame Vargas MD, [facility] ([phone]), at 07/24/2022 6:43 AM Narrative 07/24/2022 6:43 [...] who have questions please contactthe health career portals teacher that requested your imaging first. Electronically signed by: Kwame Vargas MD, [facility]([phone]), at 07/24/2022 6:43 AM Lalit Mcmahon MD IMG DX ORDERABLES * ELECTROPHYSIOLOGY PROCEDURE (07/23/2022 1:11 PM EDT) Anatomical Region Laterality Modality Other Narrative 07/23/2022 4:24 PM EDT Table formatting from the original result was not included. BIVENTRICULAR ICD IMPLANTATION Pattern Maker Programer: Lalit Mcmahon MD Fellow: Fadi Nunez MD [...] the entire procedure. LEAD AND GENERATOR DATA: It Intern Model # Serial # Generator [employer] [id number] Atrial Lead [employer] [id number] [id number] RV Lead [employer] 0672 [id number] LV Lead [employer] [id number] PACE/SENSE DATA: Sensed wave (mV) Threshold (V) [...] (cGycm2) 300 CONCLUSIONS: Successful implantation of a [employer] biventricular ICD for primary prevention and treatment of symptoms related to congestive heart failure. Follow up in EP clinic in 1-2 months. Procedures performed: new ICD system ( cpt 83969-H3); implant LV lead at time of ICD insertion (cpt 43929) I have read, edited and approve of this report: Lalit Mcmahon MD S Cardiac Electrophysiology 07/23/2022 4:22 PM Procedure Note Lalit Mcmahon MD - 07/23/2022 BIVENTRICULAR ICD IMPLANTATION Pattern Maker Programer: Lalit Mcmahon MD Fellow: Fadi Nunez MD [...] in the entireprocedure. LEAD AND GENERATOR DATA: It Intern Model # Serial # Generator [employer] [id number] Atrial Lead [employer] 7841 [id number] RV Lead [employer] 0672 [id number] LV Lead [employer] [id number] PACE/SENSE DATA: Sensed wave (mV) Threshold (V) [...] (cGycm2) 300 CONCLUSIONS: Successful implantation of a [employer] biventricular ICD forprimary prevention and treatment of symptoms related to congestive heartfailure. Follow up in EP clinic in 1-2 months. Procedures performed: new ICD system ( cpt 25107-G0); implant LV lead attime of ICD insertion (cpt 85774) I have read, edited and approve of this report: Lalit Mcmahon MD [facility] Cardiac Electrophysiology 07/23/2022 4:22 PM Lalit Mcmahon MD EP PROCEDURE ORDERAB LES * POCT Glucose (07/23/2022 12:54 PM EDT) Glucose, POC 83 65 - 199 mg/dL [facility] Comment: Supplemental ranges: <140 mg/dL before meals <180 mg/dL all other times of the day Blood 07/23/2022 12:5 4 PM EDT 07/23/2022 12:54 PM EDT Lalit Mcmahon MD POINT OF CARE TEST O RDERABLES Performing Organization Address [facility] Co de Phone Number [facility] [place] [address] * EKG 12 Lead (07/23/2022 12:33 PM EDT) Ventricular rate 72 BPM MUSE SYSTEM Atrial Rate 72 BPM MUSE SYSTEM P-R Interval 158 ms MUSE SYSTEM QRS Duration 176 ms MUSE SYSTEM Q-T Interval 458 ms MUSE SYSTEM QTC Calculated (Bezet) 501 ms MUSE SYSTEM Calculated P Cypress 34 degrees MUSE SYSTEM Calculated R Cypress 12 degrees MUSE SYSTEM Calculated T Cypress -173 degrees MUSE SYSTEM INTERPRETATION Normal sinus rhythm Left bundle branch block Abnormal ECG No previous ECGs available Confirmed by MD Salome, Lalit ([id number]) on 07/23/2022 1:19:03 PM MUSE SYSTEM 07/23/2022 12:3 3 PM EDT 07/23/2022 1:19 PM EDT Lalit Mcmahon MD ECG ORDERABLES Performing Organization Address [facility] de Phone Number MUSE SYSTEM * Differential, Automated (07/23/2022 11:55 AM EDT) Neutrophil % 62.6 % [facility] Neutrophil Absolute 4.14 1.70 - 6.10 x10(3)/[facility] Lymph % 27.0 % [facility] Lymphocytes Abs 1.8 0.9 - 3.2 x10(3)/[facility] Monocyte % 7.3 % [facility] Monocyte Abs 0.5 0.3 - 0.9 x10(3)/[facility] Eos % 2.3 % [facility] Eosinophils Abs 0.2 0.0 - 0.4 x10(3)/[facility] Basophil % 0.6 % [facility] Baso Absolute 0.0 0.0 - 0.1 x10(3)/[facility] Immature Gran % 0.20 % [facility] Comment: Immature granulocytes(IG's)percentage and absolute count will include metamyelocytes, myelocytes, and promyelocytes. Blood smears from CBCs yielding IG's will be scanned manually for concordance. If this scan disagrees with the automated IG or if promyelocytes are noted, a manual differential will be performed. Immature Gran Absolute 0.01 0.00 - 0.04 x10(3)/[facility] Blood 07/23/2022 11:5 5 AM EDT 07/23/2022 12:07 PM EDT Narrative Resulting Agency Comment Spec In Lab Lalit Mcmahon MD HEMATOLOGY ORDERABLE S [facility] [place] [address] * Hemogram (07/23/2022 11:55 AM EDT) White Blood Cell 6.6 4.0 - 9.5 x10(3)/[facility] Red Blood Cell 4.50 4.00 - 5.21 x10(6)/[facility] Hemoglobin 13.7 11.7 - 15.5 g/dL [facility] Hematocrit 42.5 35.7 - 45.8 % [facility] Mean Cell Volume 94.4 82.6 - 94.4 fL [facility] Mean Cell Hemoglobin 30.4 27.1 - 32.0 pg [facility] Mean Cell Hemoglobin Concentration 32.2 31.7 - 35.0 g/dL [facility] Platelet 193 145 - 357 x10(3)/[facility] RDW Standard Deviation 45.5 37.0 - 46.0 fL [facility] RDW coefficient of variation 13.2 11.5 - 14.1 % [facility] Mean Platelet Volume 9.5 7.6 - 12.9 fL [facility] NRBC% auto 0.0 % [facility] NRBC Absolute 0.000 0.000 - 0.000 x10(3)/mcL [facility] Blood 07/23/2022 11:5 5 AM EDT 07/23/2022 12:07 PM EDT Narrative Resulting Agency Comment Spec In Lab Lalit Mcmahon MD HEMATOLOGY ORDERABLE S [facility] [address] [facility] [place] [address] * (ABNORMAL) BMP w/fasting Glucose (07/23/2022 11:55 [...] of Diabetes Mellitus, Position Statement from the [place] [employer]. ??Diabetes Care, Volume 33, Supplement 1, Mar 2009 Blood Urea Nitrogen 23(H) 8 - 18 mg/dL [facility] Creatinine 1.07 0.70 - 1.20 mg/dL [facility] Sodium 141 135 - [...] questions. Chloride 106 98 - 107 mmol/L [facility] Carbon Dioxide 26 22 - 31 mmol/L [facility] Anion Gap 9 5 - 15 mmol/L [facility] Calcium 9.7 8.5 - 10.5 mg/dL [facility] Est Glomerular Filtration Rate 55(L) >=60 mL/min/1. 73 m?? [facility] Comment: This patient's estimated [...] Mcmahon MD CHEMISTRY ORDERABLES Performing Organization Address [facility] Co de Phone Number [facility] [place] [address] * Prothrombin Time (07/23/2022 11:55 AM EDT) [...] MD HEMATOLOGY ORDERABLE S Performing Organization Address City/[facility] Co de Phone Number [facility] [place] [address] documented in this encounter Visit Diagnoses Diagnosis HFrEF (heart failure with reduced ejection fraction)- Primary Left bundle branch block Other left bundle branch block Nonischemic cardiomyopathy Other primary cardiomyopathies Cardiac resynchronization therapy defibrillator (SURGERY SPECIALIST-D) in place Left bundle branch block Other [...] Routine documented in this encounter Care Teams Rehabilitation Services Director Relationship Specialty Start Date End Date Lolly Oliveira MD [address] [place] [address] PCP - General 07/17/13 documented as of this encounter
--- OUTSIDE RECORDS SUMMARY | 2023-11-26 10:45 | XMS_ITS | Encounter Summary ---
[place] [address] Care Team Providers Care Digital Developer Name Role Phone Lolly Oliveira MD [...] Encounter Non-[place] [address] Arrived documented as of this encounter Visit Diagnoses Not on filedocumented in this encounter Care Teams Digital Developer Relationship Specialty Start Date End Date Lolly Oliveira MD [address] [place] [address] PCP - General 07/17/13 documented as of this encounter
--- OUTSIDE RECORDS SUMMARY | 2023-11-26 10:45 | XMS_ITS | Encounter Summary ---
Author Organization [facility] Address [facility] [place] [address] Care Team Providers Care Machine Rug Cleaner Name Role Phone Lolly Oliveira MD Primary Care Provider [phone] Encounter Details Date Type Department Care Team (Late st Contact Info) Description 05/03/2023 Telephone Cardiology at [address] [phone] Lalit Mcmahon MD [facility] [place] [address] Social History Tobacco Use Types Packs/Day Years Used Date Smoking Tobacco: Never Alcohol Use Standard Drinks/Week Comments Not Currently 0 (1 standard drink = 0.6 oz pur e alcohol) [facility] Inpatient Questions Answer Date Recorded [...] AM EST Hospital Encounter Non-Invasive [place] [address] Arrived documented as of this encounter Visit Diagnoses Not on filedocumented in this encounter Care Teams Machine Rug Cleaner Relationship Specialty Start Date End Date Lolly Oliveira MD [address] [place] [address] PCP - General 07/17/13 documented as of this encounter
--- OUTSIDE RECORDS SUMMARY | 2023-11-26 10:46 | XMS_ITS | Encounter Summary ---
Author Organization [facility] [place] [address] Care Team Providers Care Phlebotomy Technologist Name Role Phone Lolly Oliveira MD Primary Care Provider [phone] Encounter Details Date Type Department Care Team (Latest Contact Info) Description 07/17/2013 8:40 AM EDT - 07/17/2013 11:59 PM EDT Hospital Encounter XRay at [address] [place] [phone] CLIN[address], [facility] Discharge Disposition: Home Social [...] AM EST Hospital Encounter Non-[place] [phone] Arrived documented as of this encounter Visit Diagnoses Not on filedocumented in this encounter Care Teams Phlebotomy Technologist Relationship Specialty Start Date End Date Lolly Oliveira MD [address] [place] [address] PCP - General 07/17/13 documented as of this encounter
--- OUTSIDE RECORDS SUMMARY | 2023-11-26 10:46 | XMS_ITS | Encounter Summary ---
[place] [address] Care Team Providers Care Medical Assistant Internal Medicine Name Role Phone Lolly Oliveira MD Primary Care Provider [phone] Encounter Details Date Type Department Care Team (Latest Contact Info) Description 07/26/2013 9:45 AM EDT - 07/26/2013 11:59 PM EDT Hospital En[place] [address] Mammographic microcalcification Social History Tobacco Use Types [...] AM EST Hospital Encounter Non-Invasive [place] [address] Arrived documented as of this encounter Procedures Procedure Name Priority Date/Time Associated Diagnosis Comments SURGICAL PATHOLOGY REPORT Routine 07/26/2013 12:12 PM EDT MAMMO SPECIMEN IMAGING DURING BIOPSY Routine 07/26/2013 11:58 AM EDT Mammographic microcalcification documented in this encounter Results * Surgical Pathology Report (07/26/2013 12:12 PM EDT) Final Diagnosis ? [facility] ? Provider: ?? ELENO CHRISTIAN ?? Pt. Name: ?? JING ALVARENGA ? Acc #: ?[id number] ?Pt. ? Col Date: ?? 07/26/2013 ? [...] Partially fragmented, fibrofatty needle core biopsies. ? [facility] ? Provider: ?? ELENO CHRISTIAN ?? Pt. Name: ?? JING ALVARENGA ? Acc #: ?[id number] ?Pt. ? Col Date: ?? 07/26/2013 ? [...] FCD, adenosis, DCIS 07/28/2013 8:29 AM EDT [facility] BREAST STRUCTURE / Unknown 07/26/2013 12:12 PM EDT 07/26/2013 12:12 PM EDT Eleno Christian MD PATHOLOGY/CYTOLOGY O RDERABLES Performing Organization Address City/State/[facility] Co mt Phone Number [facility] [place] [address] * Mammo Specimen Imaging During Biopsy (07/26/2013 [...] documented in this encounter Care Teams Medical Assistant Internal Medicine Relationship Specialty Start Date End Date Lolly Oliveira MD [address] [place] [address] PCP - General 07/17/13 documented as of this encounter
--- OUTSIDE RECORDS SUMMARY | 2023-11-26 10:46 | XMS_ITS | Encounter Summary ---
Author Organization [facility] [place] [address] Care Team Providers Care Seo Executive Name Role Phone Lolly Oliveira MD Primary Care Provider [phone] Encounter Details Date Type Department Care Team (Late st Contact Info) Description 07/26/2013 [place] [phone] Eleno Christian MD [facility] [place] [address] Social History Tobacco Use Types Packs/Day Years [...] AM EST Hospital Encounter Non-Invasive [place] [address] Arrived documented as of this encounter Visit Diagnoses Not on filedocumented in this encounter Care Teams Seo Executive Relationship Specialty Start Date End Date Lolly Oliveira MD [address] [place] [address] PCP - General 07/17/13 documented as of this encounter
--- OUTSIDE RECORDS SUMMARY | 2023-11-26 10:46 | XMS_ITS | Encounter Summary ---
[place] [address] Care Team Providers Care Orchid Worker Name Role Phone Lolly Oliveira MD Primary Care Provider [phone] Encounter Details Date Type Department Care Team (Late st Contact Info) Description 07/17/2013 [place] [phone] Lolly Oliveira MD [address] [place], [place] [id number] Social History Tobacco Use Types Packs/Day Years [...] AM EST Hospital Encounter Non-Invasive [place] [phone] Arrived documented as of this encounter Procedures Procedure Name Priority Date/Time Associated Diagnosis Comments REQUEST FOR 2ND READ MAMMO Routine 07/17/2013 8:45 AM EDT documented in this encounter Results * Request for 2nd read Mammo (07/17/2013 8:45 AM EDT) Anatomical Region Laterality Modality Other 07/17/2013 8:45 AM EDT Narrative 07/17/2013 3:57 PM EDT INTERPRETATION OF OUTSIDE MAMMOGRAMS (PERFORMED ON 07/06/13 AND 07/14/13) FROM [facility] DATED 07/17/13: ?? DIAGNOSTIC IMAGING SUMMARY: [...] OUTSIDE MAMMOGRAMS (PERFORMED ON 07/06/13 AND 07/14/13) [facility] DATED 07/17/13: DIAGNOSTIC IMAGING [...] on filedocumented in this encounter Care Teams Orchid Worker Relationship Specialty Start Date End Date Lolly Oliveira MD [address] [place] [address] PCP - General 07/17/13 documented as of this encounter
--- OUTSIDE RECORDS SUMMARY | 2023-11-26 10:46 | XMS_ITS | Encounter Summary ---
Author Organization [facility] [place] [address] Care Team Providers Care Fitness Centre Manager Name Role Phone Lolly Oliveira MD Primary Care Provider [phone] Encounter Details Date Type Department Care Team (Latest Contact Info) Description 07/18/2013 [place] [phone] Alia Fraire MD [facility] DIAGNOSTIC [place] [address] Mammographic microcalcification (Primary Dx) Social History Tobacco [...] AM EST Hospital Encounter Non[place] [address] Arrived documented as of this encounter Results [...] are present on specimen digital X-ray. A RealPagerk Eviva-Stereo 13 Cylinder marker clip was placed. [...] calcifications are present on specimendigital X-ray. A RealPagerk Eviva-Stereo 13 Cylinder marker clip was placed. [...] does not layer and, therefore, are not pest control service representative of milk of calcium. Again, [...] does not layer and, therefore, are not pest control service representative of milk of calcium. Again, these have an amorphous andpunctate appearance and remain indeterminate. Stereotactic guided biopsy isrecommended. Alia Fraire MD IMG MAMMO ORDERABLES documented in this encounter Visit Diagnoses Diagnosis Mammographic microcalcification- Primary Mammographic microcalcification Mammographic microcalcification Mammographic microcalcification Mammographic microcalcification documented in this encounter Care Teams Fitness Centre Manager Relationship Specialty Start Date End Date Lolly Oliveira MD [address] [place] [address] PCP - General 07/17/13 documented as of this encounter
--- OUTSIDE RECORDS SUMMARY | 2023-11-26 10:46 | XMS_ITS | Encounter Summary ---
Author Organization [facility] [place] [address] Care Team Providers Care Emd Special Education Teacher Name Role Phone Lolly Oliveira MD Primary Care Provider [phone] Reason for Visit * Reason Comments Skin Check Encounter Details Date Type Department Care Team (Late st Contact Info) Description 11/23/2014 10:00 AM EDT Office Visit Dermatology at [address] [address] Clay Ramírez MD [address] [facility], [place] [address] Dermatofibroma; Nevus; Solar lentigo Discharge Disposition: Home [...] [facility] Hospital Encounter Non-Invasive [place] [address] Arrived documented as of this encounter Visit Diagnoses Diagnosis Dermatofibroma Benign neoplasm of skin, site unspecified Nevus Benign neoplasm of skin, site unspecified Solar lentigo Other dyschromia documented in this encounter Care Teams Emd Special Education Teacher Relationship Specialty Start Date End Date Lolly Oliveira MD [address] [place] [address] PCP - General 07/17/13 documented as of this encounter
--- OUTSIDE RECORDS SUMMARY | 2023-11-26 10:46 | XMS_ITS | Encounter Summary ---
Author Organization [facility] [place] [address] Care Team Providers Care Patternmaker Wood Name Role Phone Lolly Oliveira MD Primary Care Provider [phone] Encounter Details Date Type Department Care Team (Latest Contact Info) Description 07/26/2013 9:44 AM EDT - 07/26/2013 11:59 PM EDT Hospital En[place] [address] CLINIC, Lolly So MD [address] [place], [place] [id number] Mammographic microcalcification Discharge Disposition: Home Social History [...] AM EST Hospital Encounter Non-[place] [address] Arrived documented as of this encounter Procedures [...] are present on specimen digital X-ray. [employer]Stereo 13 Cylinder marker clip was placed. Cranio-caudal [...] mLs documented in this encounter Care Teams Patternmaker Wood Relationship Specialty Start Date End Date Lolly Oliveira MD [address] [place] [address] PCP - General 07/17/13 documented as of this encounter
--- OUTSIDE RECORDS SUMMARY | 2023-11-26 10:46 | XMS_ITS | Encounter Summary ---
Author Organization [facility] [place] [address] Care Team Providers Care Chiropractor Assistant Name Role Phone Lolly Oliveira MD Primary Care Provider [phone] Encounter Details Date Type Department Care Team (Late st Contact Info) Description 04/01/2021 3:30 PM EST Office Visit Dermatology at [address] [phone] Clay Ramírez MD [address] [address], [place] [address] Psoriasis, guttate Social History Tobacco Use Types [...] EST Hospital Encounter Non-Invasive [place] [address] Arrived documented as of this encounter Visit Diagnoses Diagnosis Psoriasis, guttate Other psoriasis documented in this encounter Care Teams Chiropractor Assistant Relationship Specialty Start Date End Date Lolly Oliveira MD [address] [place] [address] PCP - General 07/17/13 documented as of this encounter
--- OUTSIDE RECORDS SUMMARY | 2023-11-26 10:46 | XMS_ITS | Encounter Summary ---
Author Organization [facility] [place] [address] Care Team Providers Care Monitor Tech Name Role Phone Lolly Oliveira MD Primary Care Provider [phone] Encounter Details Date Type Department Care Team (Late st Contact Info) Description 06/29/2011 [place] [address] Eleno Christian MD [facility] [place] [address] Social History Tobacco Use Types Packs/Day Years [...] AM EST Hospital Encounter [place] [address] Arrived documented as of this encounter Procedures [...] a Non-reportable exam Eleno Christian MD [facility] FILM LIBRARY ORD ERABLES documented in this encounter Visit Diagnoses Not on filedocumented in this encounter Care Teams Monitor Tech Relationship Specialty Start Date End Date Lolly Oliveira MD [address] [place] [address] PCP - General 07/17/13 documented as of this encounter
--- OUTSIDE RECORDS SUMMARY | 2023-11-26 10:46 | XMS_ITS | Encounter Summary ---
Author Organization [facility] [place] [address] Care Team Providers Care Machine Chocolate Molder Name Role Phone Unavailable Primary Care Provider Unavailabl e Encounter Details Date Type Department Care Team (Late st Contact Info) Description 07/14/2013 [place] [address] Eleno Christian MD [facility] [place] [address] Social History Tobacco Use Types Packs/Day Years [...] AM EST Hospital Encounter Non-Invasive [place] [address] Arrived documented as of this encounter Visit Diagnoses Not on filedocumented in this encounter
--- OUTSIDE RECORDS SUMMARY | 2023-11-26 10:46 | XMS_ITS | Encounter Summary ---
Author Organization Count Includes [facility] [place] [address] Care Team Providers Care Public Works Director Name Role Phone Lolly Oliveira MD Primary Care Provider [phone] Encounter Details Date Type Department Care Team (Latest Contact Info) Description 07/20/2013 9:26 AM EDT - 07/20/2013 11:59 PM EDT Hospital [place] [address] CLINIC, Lolly So MD [address] [place], [place] [phone] Mammographic microcalcification Discharge Disposition: Home Social History [...] AM EST Hospital Encounter [place] [address] Arrived documented as of this encounter Procedures [...] does not layer and, therefore, are not entry level sales representative of milk of calcium. Again, [...] does not layer and, therefore, are not entry level sales representative of milk of calcium. Again, these have an amorphous andpunctate appearance and remain indeterminate. Stereotactic guided biopsy isrecommended. Alia Fraire MD IMG MAMMO ORDERABLES documented in this encounter Visit Diagnoses Diagnosis Mammographic microcalcification documented in this encounter Care Teams Public Works Director Relationship Specialty Start Date End Date Lolly Oliveira MD [address] [place] [address] PCP - General 07/17/13 documented as of this encounter
--- OUTSIDE RECORDS SUMMARY | 2023-11-26 10:46 | XMS_ITS | Encounter Summary ---
Author Organization [facility] [place] [address] Care Team Providers Care Batch Heat Treat Operator Name Role Phone Lolly Oliveira MD Primary Care Provider Encounter Details Date Type Department Care Team (Latest Contact Info) Description 07/26/2013 9:45 AM EDT - 07/26/2013 11:59 PM EDT Hospital En[place] [address] Mammographic microcalcification Social History Tobacco Use Types [...] Hospital Encounter Non-Invasive [place] [address] Arrived documented as of this encounter Procedures [...] microcalcification documented in this encounter Care Teams Batch Heat Treat Operator Relationship Specialty Start Date End Date Lolly Oliveira MD [address] [place] [address] PCP - General 07/17/13 documented as of this encounter
--- OUTSIDE RECORDS SUMMARY | 2023-11-26 10:46 | XMS_ITS | Encounter Summary ---
Author Organization [facility] [place] [address] Care Team Providers Care Synchro Assembler Name Role Phone Unavailable Primary Care Provider Unavailabl e Encounter Details Date Type Department Care Team (Late st Contact Info) Description 07/04/2012 Orders [place] [address] Eleno Christian MD [facility] [place] [address] Social History Tobacco Use Types Packs/Day Years [...] AM EST Hospital Encounter Non-[place] [address] Arrived documented as of this encounter Procedures [...]
--- OUTSIDE RECORDS SUMMARY | 2023-11-26 10:46 | XMS_ITS | Encounter Summary ---
Author Organization [facility] [place] [address] Care Team Providers Care Wheat Cleaner Name Role Phone Unavailable Primary Care Provider Unavailabl e Encounter Details Date Type Department Care Team (Late st Contact Info) Description 07/14/2013 External Results XRay at [address] [place] [address] Provider, Scanning Social History Tobacco Use Types [...] AM EST Hospital Encounter Non-Invasive Cardiology Lab [facility] [place] [address] Arrived documented as of this encounter Procedures [...]
[2023-11-26 10:53] VITALS: BP 129/70; PULSE 70
[2023-12-01 11:38] VITALS: BP 135/61; PULSE 63
--- OUTSIDE RECORDS SUMMARY | 2023-12-01 11:38 | XMS_ITS | Encounter Summary ---
Author Organization [facility] Address [address] [place] [address] Care Team Providers Care Subcontracts Manager Name Role Phone Lolly Oliveira MD Primary Care Provider [phone] Encounter Details Date Type Department Care Team (Late st Contact Info) Description 05/02/2004 Results Only [facility] [address] [place] [address] Lolly Oliveira MD [address] [place], [place] [id number] Social History Tobacco Use Types Packs/Day Years [...] 68. [facility] Report Status Final [id number] [facility] 05/02/2004 9:32 EST 05/10/2004 9:32 EST Lolly Oliveira MD MICROBIOLOGY - GENER AL ORDERABLES [facility] [address] [place] [address] * CYTOPATHOLOGY (05/02/2004 0:00 EST) Pathology Report: CYTOPATHOLOGY REPORT Reports generated via electronic interface contain original data; however they are lacking the format of the original report. Caution should be taken when reading/interpreti ng unformatted reports. Name: ? JING ALVARENGA ? Accession #: ? [id number] : ? 1950 (Age: 53) ??F ?Collect [...] Oliveira MD PATHOLOGY ORDERABLES Performing Organization Address City/State/[facility] Co de Phone Number [facility] [address] [place] [address] documented in this encounter Visit Diagnoses Not on filedocumented in this encounter Care Teams Subcontracts Manager Relationship Specialty Start Date End Date Lolly Oliveira MD [address] [place] [address] PCP - General 11/13/08 documented as of this encounter
--- OUTSIDE RECORDS SUMMARY | 2023-12-01 11:38 | XMS_ITS | Encounter Summary ---
Author Organization [facility] Address [facility] [place] [address] Care Team Providers Care Property Utilization Manager Name Role Phone Lolly Oliveira MD Primary Care Provider [phone] Encounter Details Date Type Department Care Team (Late st Contact Info) Description 01/29/2023 Notes Only Cardiology at [address] [address] Merle Lin PA [facility] [place] [address] Social History Tobacco Use Types Packs/Day Years [...] pdf document Date of transmission: 01/29/2023 Device weatherization technician: BSI Device type: FORENSIC ENGINEER-D Presenting rhythm: /RVP/LVP AP 21% Right AIR CONDITIONING SERVICE TECHNICIAN 100% Left AIR CONDITIONING SERVICE TECHNICIAN: 100% Battery: 10.5 years [employer] Index rising in setting of increasing S3 intensity, increasing respiratory rate, increasing night heart rate, and increasing mean heart rate. MICKEY Villa 01/29/2023 9:06 AM documented in this encounter Plan of Treatment Upcoming Encounters Date Type Department Care Team (Late st Contact Info) Description 01/16/2024 10:00 AM EST Hospital Encounter Non-Invasive [place] [address] Arrived documented as of this encounter Visit Diagnoses Not on filedocumented in this encounter Care Teams Property Utilization Manager Relationship Specialty Start Date End Date Lolly Oliveira MD [address] [place] [address] PCP - General 07/17/13 documented as of this encounter
--- OUTSIDE RECORDS SUMMARY | 2023-12-01 11:38 | XMS_ITS | Encounter Summary ---
Author Organization [facility] Address [address] [place] [address] Care Team Providers Care Brick Stacker Name Role Phone Lolly Oliveira MD Primary Care Provider [phone] Encounter Details Date Type Department Care Team (Late st Contact Info) Description 04/25/2009 Orders Only [facility] Laboratory Services - [facility] [address] [place], [place] [phone] Lolly Oliveira MD [address] [place], [place] [id number] Social History Tobacco Use Types Packs/Day Years [...] ? JING ALVARENGA ? Accession #: ? [id number] ? : ? 1950 (Age: 58) ??F [...] reviewed and electronically signed by: ? [place], [place](ASCP) ? Report Date: ??04/29/2009 10:38 ? End of Report ? [facility] 04/25/2009 04/26/2009 Lolly Oliveira MD PATHOLOGY ORDERABLES [facility] [address] [place] [address] documented in this encounter Visit Diagnoses Not on filedocumented in this encounter Care Teams Brick Stacker Relationship Specialty Start Date End Date Lolly Oliveira MD [address] [place] [address] PCP - General 11/13/08 documented as of this encounter
--- OUTSIDE RECORDS SUMMARY | 2023-12-01 11:38 | XMS_ITS | Clinical Summary ---
Author Organization [facility] [place] [address] Care Team Providers Care Retirement Benefits Specialist Name Role Phone Lolly Oliveira MD Primary Care Provider [phone] Allergies Active Allergy Reactions Criticality Noted Date [...] spacer Active fluticasone propionate (Flonase) 50 mcg/actuation [place], Suspension 1 spray by Each Nare route [...] PM EDT Hospital Encounter [place] [address] Discharge Disposition: Home from Last [...] AM EST Hospital Encounter [place] [address] Arrived Health Maintenance Due Date Last Done Comments CT Colonography 1950 Colonoscopy 1950 Colorectal Cancer Screening 1950 FIT DNA 1950 FIT 1950 Sigmoidoscopy (10 year) with FIT yearly 1950 Sigmoidoscopy 1950 Hepatitis C Screening 1966 Tetanus/Diphtheria/Pertussis Vaccines (1 - Tdap) 08/09 Zoster vaccine (1 of 2) 1998 Advance Directive 08/10/2003 Bone Density Scan 2013 Pneumoccocal Vaccine: 65+ (1 of 1 - PCV) 2013 Covid-19 Vaccine ( - 2022- season) 2023 Influenza (Flu) vaccine (1 o f 1 - Influenza standard series) 11/07/2023 Medical Devices Implanted Type Area Ingredient Scaler Device Identifier Shelf Expiration Date Model / Serial / Lot Bsx: [id number]: 560558-5/18/2 023 Implanted: by Lalit Mcmahon MD (Quantity not on file) Defibrillator Chest Wall [employer] G447 / [id number] / Bsx: [id number]: 750396-2/18/2 023 Implanted: by Lalit Mcmahon MD (Quantity not on file) Lead Heart [employer] 4674 / [id number] / Bsx: [id number]: [id number] Implanted: by Lalit Mcmahon MD (Quantity not on file) Lead Heart [employer] 7841 / [id number] / Bsx: [id number]: 215881-6/18/2 023 Implanted: by Lalit Mcmahon MD (Quantity not on file) Lead Heart [employer] 0672 / [id number] / Advance Directives * Attempt Cardiopulmonary Resuscitation - Inpatient (Latest Code Status on File) Date Activated Date Inactivated Comments 07/23/2022 4:30 PM 07/24/2022 12:32 PM Question Answer Comments Code Status decision made by: Patient Care Teams Retirement Benefits Specialist Relationship Specialty Start Date End Date Lolly Oliveira MD [address] [place] [address] PCP - General 07/17/13
--- OUTSIDE RECORDS SUMMARY | 2023-12-01 11:38 | XMS_ITS | Encounter Summary ---
Author Organization [facility] Address [address] [place] [address] Care Team Providers Care Focus Puller Name Role Phone Lolly Olvieira MD Primary Care Provider [phone] Encounter Details Date Type Department Care Team (Late st Contact Info) Description 03/21/2019 Lab Requisition [facility] Pathology & Laboratory Medicine - [address] [address] Unknown, Provider, Social History Tobacco Use Types [...] 211 - 911 pg/mL 03/22/2019 11:52 EST [facility] Blood VENOUS BLOOD / Unknown 03/16/2019 9:25 EST 03/21/2019 21:35 EST Provider Unknown CHEMISTRY & BLOOD GA S ORDERABLES [facility] [address] [place] [address] documented in this encounter Visit Diagnoses Not on filedocumented in this encounter Care Teams Focus Puller Relationship Specialty Start Date End Date Lolly Oliveira MD [address] [place] [address] PCP - General 11/13/08 documented as of this encounter
--- OUTSIDE RECORDS SUMMARY | 2023-12-01 11:38 | XMS_ITS | Encounter Summary ---
Author Organization [place] [address] Care Team Providers Care Sheet Metal Worker Maintenance Name Role Phone Lolly Oliveira MD Primary Care Provider [phone] Reason for Visit * Reason Onset Date Comments Other 07/24/2022 Implanted Cardia c Device Teaching/Education Encounter Details Date Type Department Care Team (Late st Contact Info) Description 07/24/2022 Notes Only Cardiology at [address] [phone] Letha Arroyo Other (Implanted Cardiac Device Teaching/Education) [...] to call the Cardiac Device Clinic at [phone] with any questions. Plan: Post op check: [...] [facility]ENTER Hospital Encounter Non-[place] [address] Arrived documented as of this encounter Visit Diagnoses Not on filedocumented in this encounter Care Teams Sheet Metal Worker Maintenance Relationship Specialty Start Date End Date Lolly Oliveira MD [address] [place] [address] PCP - General 07/17/13 documented as of this encounter
--- OUTSIDE RECORDS SUMMARY | 2023-12-01 11:38 | XMS_ITS | Encounter Summary ---
Author Organization [facility] Address [facility] [place] [address] Care Team Providers Care Runner Worker Name Role Phone Lolly Oliveira MD Primary Care Provider [phone] Encounter Details Date Type Department Care Team (Late st Contact Info) Description 05/03/2023 Telephone Cardiology at [address] [phone] Lalit Mcmahon MD [facility] [place] [address] Social History Tobacco Use Types Packs/Day Years Used Date Smoking Tobacco: Never Alcohol Use Standard Drinks/Week Comments Not Currently 0 (1 standard drink = 0.6 oz pur e alcohol) [facility] Inpatient Questions Answer Date Recorded [...] Hospital Encounter Non-In[place] [address] Arrived documented as of this encounter Visit Diagnoses Not on filedocumented in this encounter Care Teams Runner Worker Relationship Specialty Start Date End Date Lolly Oliveira MD [address] [place] [address] PCP - General 07/17/13 documented as of this encounter
--- OUTSIDE RECORDS SUMMARY | 2023-12-01 11:38 | XMS_ITS | Encounter Summary ---
Author Organization [facility] Address [address] [place] [address] Care Team Providers Care System Administration Manager Name Role Phone Lolly Oliveira MD Primary Care Provider [phone] Encounter Details Date Type Department Care Team (Late st Contact Info) Description 02/20/2020 Lab Requisition [facility] Pathology & Laboratory Medicine - [address] [address] Outr Resulting Lab, Provider Social History Tobacco [...] in accordance with CLIA regulations, [employer] [place] [employer] (CAP) guidelines (May 25, 2019), and FDA guidance (May 06, 2019). This test is only for use under the Food and Drug Administration's Emergency Use Authorization. Swab ENTIRE NASOPHARYNX / Unknown 02/19/2020 16:30 EST 02/20/2020 16:09 EST Provider Outr Resulting Lab MICROBIOLOGY - GENERAL ORDERABLES [facility] [place] * COVID-19 TESTING (02/19/2020 16:30 EST) COVID-19 rt-PCR Result NEGATIVE Negative 02/22/2020 23:41 EST [facility] Comment: 2019-novel Coronavirus (2019-nCoV) not [...] in accordance with CLIA regulations, [employer] [place] Citizen [employer] (CAP) guidelines (May 25, 2019), and FDA guidance (May 06, 2019). This test is only for use under the Food and Drug Administration's Emergency Use Authorization. Performing Lab [facility] 02/22/2020 23:[address] [facility] Swab 02/19/2020 16:3 0 EST 02/20/2020 16:09 EST Provider Outr Resulting Lab MICROBIOLOGY - GENERAL ORDERABLES [facility] [address] [place] [address] [facility] [place] documented in this encounter Visit Diagnoses Not on filedocumented in this encounter Care Teams System Administration Manager Relationship Specialty Start Date End Date Lolly Oliveira MD [address] [place] [address] PCP - General 11/13/08 documented as of this encounter
--- OUTSIDE RECORDS SUMMARY | 2023-12-01 11:38 | XMS_ITS | Encounter Summary ---
Author Organization [facility] [place] [address] Care Team Providers Care Conductor Orchestra Name Role Phone Lolly Oliveira MD Primary Care Provider [phone] Encounter Details Date Type Department Care Team (Latest Contact Info) Description 01/21/2023 10:00 AM EST - 01/21/2023 11:59 PM EST Hospital Encounter Non[place] [address] Discharge Disposition: Home Social History Tobacco Use [...] with spacer fluticasone propionate (Flonase) 50 mcg/actuation [place], Suspension 1 spray by Each Nare route [...] AM EST Hospital Encounter Non-[place] [address] Arrived documented as of this [...] on filedocumented in this encounter Care Teams Conductor Orchestra Relationship Specialty Start Date End Date Lolly Oliveira MD [address] [place] [address] PCP - General 07/17/13 documented as of this encounter
--- OUTSIDE RECORDS SUMMARY | 2023-12-01 11:38 | XMS_ITS | Encounter Summary ---
Author Organization [facility] Address [address] [place] [address] Care Team Providers Care Senior Systems Software Engineer Name Role Phone Lolly Oliveira MD Primary Care Provider Encounter Details Date Type Department Care Team (Late st Contact Info) Description 04/17/2005 Results Only [facility] conversion [address] [place] [address] Lolly Oliveira MD [address] [place], [place] [id number] Social History Tobacco Use Types Packs/Day Years [...] ? JING ALVARENGA ? Accession #: ? [id number] : ? 1950 (Age: 54) ??F ?Collect Date: ? 04/17/2005 Location: ? [facility] ? Receive Date: ? 04/21/2005 Provider: ?LOLLY OLIVEIRA MD Copy to: ? Specimen/Source: ?ThinPrep Pap Test, Cervix/Endocervix, processed on TracelyticsPrep Imaging System, with manual evaluation Last Menstrual [...] Oliveira MD PATHOLOGY ORDERABLES [facility] [address] [place] [address] documented in this encounter Visit Diagnoses Not on filedocumented in this encounter Care Teams Senior Systems Software Engineer Relationship Specialty Start Date End Date Lolly Oliveira MD [address] [place] [address] PCP - General 11/13/08 documented as of this encounter
--- OUTSIDE RECORDS SUMMARY | 2023-12-01 11:38 | XMS_ITS | Encounter Summary ---
Author Organization [facility] [place] [address] Care Team Providers Care Button Cutter Name Role Phone Lolly Oliveira MD Primary Care Provider [phone] Encounter Details Date Type Department Care Team (Late st Contact Info) Description 05/18/2023 Telephone Dermatology at [address] [address] Nora Meredith LPN Social History [...] [facility] Hospital Encounter Non-Invasive [place] [address] Arrived documented as of this encounter Visit Diagnoses Not on filedocumented in this encounter Care Teams Button Cutter Relationship Specialty Start Date End Date Lolly Oliveira MD [address] [place] [address] PCP - General 07/17/13 documented as of this encounter
--- OUTSIDE RECORDS SUMMARY | 2023-12-01 11:38 | XMS_ITS | Encounter Summary ---
Author Organization [facility] Address [address] [place] [address] Care Team Providers Care Machine Egg Washer Name Role Phone Lolly Oliveira MD Primary Care Provider [phone] Encounter Details Date Type Department Care Team (Late st Contact Info) Description 05/27/2021 Lab Requisition [facility] Pathology & Laboratory Medicine - [address] [address] Iman Moran, DO [address] [place], [place] [id number] Encounter for other general examination Social History [...] management options, if applicable. 05/30/2021 13:31 EDT [facility] Final Diagnosis A. COLON, POLYP AT 90 CM, BIOPSY/POLYPECTOM Y: - Tubular adenoma. 05/30/2021 13:31 [facility] Attestation By the signature below, the attending physician certifies that they have 1) personally conducted a gross and/or microscopic examination of the described specimen(s), and/or personally interpreted the results of laboratory testing of the described specimen(s), and 2) personally rendered or confirmed the above diagnosis. 05/30/2021 13:31 [facility] at 1331 Clinical History Severe diverticula and polypectomy x1 05/30/2021 13:31 [facility] Gross Description A. Received in formalin labelled with proper patient identification (initials J, K) and colon polyp x1 at 90 cm is a light pineda polypoid tissue measuring 0.2 x 0.2 x 0.2 cm. Submitted intact in A1. MICKEY CARLOS(ASCP) 05/27/2021 19:11 05/30/2021 13:31 [facility] Performing Lab [facility] 05/30/2021 13:31 [facility] Scanned Images 05/30/2021 13:31 [facility] Tissue ENTIRE COLON / Unknown 05/27/2021 11:23 EDT 05/27/2021 16:33 EDT Iman Moran DO PATHOLOGY ORDERABLES [facility] [address] [place] [address] documented in this encounter Visit Diagnoses Diagnosis Encounter for other general examination documented in this encounter Care Teams Machine Egg Washer Relationship Specialty Start Date End Date Lolly Oliveira MD [address] [place] [address] PCP - General 11/13/08 documented as of this encounter
--- OUTSIDE RECORDS SUMMARY | 2023-12-01 11:38 | XMS_ITS | Encounter Summary ---
Author Organization [facility] [place] [address] Care Team Providers Care Heel Builder Name Role Phone Lolly Oliveira MD Primary Care Provider [phone] Encounter Details Date Type Department Care Team [...] AM EST Hospital Encounter Non[place] [address] Arrived documented as of this encounter Visit Diagnoses Not on filedocumented in this encounter Care Teams Heel Builder Relationship Specialty Start Date End Date Lolly Oliveira MD [address] [place] [address] PCP - General 07/17/13 documented as of this encounter
--- OUTSIDE RECORDS SUMMARY | 2023-12-01 11:38 | XMS_ITS | Encounter Summary ---
Author Organization [facility] Address [facility] [place] [address] Care Team Providers Care Larriman Helper Name Role Phone Lolly Oliveria MD Primary Care Provider [phone] Encounter Details Date Type Department Care Team (Late st Contact Info) Description 11/11/2022 Orders Only Cardiology at [address] [phone] Lalit Mcmahon MD [facility] [address] [place] [address] Nonischemic cardiomyopathy Social History Tobacco Use Types [...] [facility] Hospital Encounter Non-Invasive [place] [phone] Arrived documented as of this encounter Visit Diagnoses Diagnosis Nonischemic cardiomyopathy Other primary cardiomyopathies documented in this encounter Care Teams Larriman Helper Relationship Specialty Start Date End Date Berrian, Lolly M, MD [address] [place] [address] PCP - General 07/17/13 documented as of this encounter
--- OUTSIDE RECORDS SUMMARY | 2023-12-01 11:38 | XMS_ITS | Encounter Summary ---
Author Organization [facility] Address [address] [place] [address] Care Team Providers Care Corporate Counselor Name Role Phone Unavailable Primary Care Provider Unavailabl e Encounter Details Date Type Department Care Team (Late st Contact Info) Description 11/07/2008 Orders Only [facility] Laboratory Services - [facility] [address] [place] [address] Kenneth Parker MD [address] [place] [address] Social History Tobacco Use Types Packs/Day Years [...] ? LYLE, JING ? Accession #: ? [id number] ? : ? 1950 (Age: 58) ??F [...] Parker MD PATHOLOGY ORDERABLES Performing Organization Address City/State/[facility] [[email or web address]] Co de Phone Number [facility] [address] [place] [address] documented in this encounter Visit Diagnoses Not on filedocumented in this encounter
--- OUTSIDE RECORDS SUMMARY | 2023-12-01 11:38 | XMS_ITS | Encounter Summary ---
Author Organization [facility] [place] [address] Care Team Providers Care It Project Lead Name Role Phone Lolly Oliveira MD Primary Care Provider [phone] Encounter Details Date Type Department Care Team (Late st Contact Info) Description 03/15/2023 Telephone Cardiology at [address] [phone] Saranya Ma Social History Tobacco Use Types [...] to have an echo done at [facility] prior to her appt withsdm there on 05/12/23. Message sent to Dr. Mcmahon asking him to put order in if he would like her to have this done. Saranya Ma Sr. Clinical Procedure Superintendent [employer]/Remnants Cutter documented in this encounter Plan of Treatment Upcoming Encounters Date Type Department Care Team (Late st Contact Info) Description 01/16/2024 10:00 AM EST Hospital Encounter Non-Invasive [place] [address] Arrived documented as of this encounter Visit Diagnoses Not on filedocumented in this encounter Care Teams It Project Lead Relationship Specialty Start Date End Date Lolly Oliveira MD [address] [place] [address] PCP - General 07/17/13 documented as of this encounter
--- OUTSIDE RECORDS SUMMARY | 2023-12-01 11:38 | XMS_ITS | Encounter Summary ---
Author Organization [facility] Address [address] [place] [address] Care Team Providers Care Mold Clamper Name Role Phone Lolly Oliveira MD Primary Care Provider [phone] Encounter Details Date Type Department Care Team (Late st Contact Info) Description 11/13/2020 Lab Requisition [facility] Pathology & Laboratory Medicine - [address] [id number] Outr Resulting Lab, Provider Social History Tobacco [...] Outr Resulting Lab MICROBIOLOGY - GENERAL ORDERABLES [facility] [address] [place] [address] * COVID-19 TESTING (11/13/2020 7:30 EDT) COVID-19 rt-PCR Result Negative Negative 11/14/2020 11:46 EDT [facility] Comment: This test [...] performed using the med SARS-CoV-2 assay ([employer] on the Med 6800 System Performing Lab Med [address] [facility] Lab 11/14/2020 11:46 EDT [facility] Swab 11/13/2020 7:30 EDT 11/13/2020 20:57 EDT Provider Outr Resulting Lab MICROBIOLOGY - GENERAL ORDERABLES [facility] [address] [place] [address] documented in this encounter Visit Diagnoses Not on filedocumented in this encounter Care Teams Mold Clamper Relationship Specialty Start Date End Date Lolly Oliveira MD [address] [place] [address] PCP - General 11/13/08 documented as of this encounter
--- OUTSIDE RECORDS SUMMARY | 2023-12-01 11:38 | XMS_ITS | Referral Summary ---
Author Organization [facility] Address [address] [place] [address] Care Team Providers Care Hvac Controls Technician Name Role Phone Lolly Oliveira MD Primary Care Provider [phone] Social History Tobacco Use Types Packs/Day Years Used Date Smoking Tobacco: Never Assessed Sex and Gender Information Value Date Recorded Sex Assigned at Not on file Gender Identity Not on file Sexual Orientation Not on file Plan of Treatment Not on file Care Teams Hvac Controls Technician Relationship Specialty Start Date End Date Lolly Oliveira MD [address] [place] [address] PCP - General 11/13/08
--- OUTSIDE RECORDS SUMMARY | 2023-12-01 11:38 | XMS_ITS | Encounter Summary ---
Author Organization [facility] [place] [address] Care Team Providers Care Greens Laborer Name Role Phone Lolly Oliveira MD Primary Care Provider [phone] Encounter Details Date Type Department Care Team (Latest Contact Info) Description 04/21/2023 10:00 AM EST - 04/21/2023 11:59 PM EST Hospital Encounter [place] [phone] Discharge Disposition: Home Social History Tobacco Use [...] with spacer fluticasone propionate (Flonase) 50 mcg/actuation [place], Suspension 1 spray by Each Nare route [...] AM EST Hospital Encounter Non-[place] [address] Arrived documented as of this [...] on filedocumented in this encounter Care Teams Greens Laborer Relationship Specialty Start Date End Date Lolly Oliveira MD [address] [place] [address] PCP - General 07/17/13 documented as of this encounter
--- OUTSIDE RECORDS SUMMARY | 2023-12-01 11:38 | XMS_ITS | Encounter Summary ---
Author Organization [facility] [place] [address] Care Team Providers Care Public Weigher Name Role Phone Lolly Oliveira MD Primary Care Provider [phone] Reason for Visit * Reason Comments Follow-up 8 weeks UVB treatmen t twice weekly Encounter Details Date Type Department Care Team (Late st Contact Info) Description 07/19/2023 11:00 AM EDT Office Visit Dermatology at [address] [phone] Clay Ramírez MD [address], ERIKA A DERMATOLOGY [place], [place] [phone] Psoriasis Social History Tobacco Use Types Packs/Day [...] st Contact Info) Description 01/16/2024 10:00 AM [facility] Hospital Encounter Non-[place] [address] Arrived documented as of this encounter Visit Diagnoses Diagnosis Psoriasis Other psoriasis documented in this encounter Care Teams Public Weigher Relationship Specialty Start Date End Date Lolly Oliveira MD [address] [place] [address] PCP - General 07/17/13 documented as of this encounter
--- OUTSIDE RECORDS SUMMARY | 2023-12-01 11:38 | XMS_ITS | Encounter Summary ---
Author Organization [facility] [place] [address] Care Team Providers Care Grocery Store Clerk Name Role Phone Lolly Oliveira MD Primary Care Provider [phone] Encounter Details Date Type Department Care Team (Latest Contact Info) Description 10/23/2022 10:00 AM EDT - 10/23/2022 11:59 PM EDT Hospital Encounter Non[place] [address] Discharge Disposition: Home Social History Tobacco Use [...] with spacer fluticasone propionate (Flonase) 50 mcg/actuation [place], Suspension 1 spray by Each Nare route [...] [facility] Hospital Encounter Non-[place] [address] Arrived documented as of this [...] on filedocumented in this encounter Care Teams Grocery Store Clerk Relationship Specialty Start Date End Date Lolly Oliveira MD [address] [place] [address] PCP - General 07/17/13 documented as of this encounter
--- OUTSIDE RECORDS SUMMARY | 2023-12-01 11:38 | XMS_ITS | Clinical Summary ---
Author Organization [facility] Address [address] [place] [address] Care Team Providers Care Makeup Artistry Instructor Name Role Phone Lolly Oliveira MD Primary Care Provider [phone] Social History Tobacco Use Types Packs/Day Years [...] COVID-19 Vaccine ( season) 2023 Care Teams Makeup Artistry Instructor Relationship Specialty Start Date End Date Lolly Oliveira MD [address] [place], [place] [phone] PCP - General 11/13/08
--- OUTSIDE RECORDS SUMMARY | 2023-12-01 11:38 | XMS_ITS | Encounter Summary ---
Author Organization [facility] Address [address] [place] [address] Care Team Providers Care Mounted Police Officer Name Role Phone Lolly Oliveira MD Primary Care Provider Encounter Details Date Type Department Care Team (Late st Contact Info) Description 06/16/2012 Results Only [facility] Laboratory Services - [facility] [place] [address] [place], [place] [phone] Lolly Oliveira MD [address] [place], [place] [phone] Social History Tobacco Use Types Packs/Day Years [...] ? JING ALVARENGA ? Accession #: ? [id number] : ? 1950 (Age: 61) ??F ?Collect [...] MD PATHOLOGY ORDERABLES [facility] [address] [place] [address] documented in this encounter Visit Diagnoses Not on filedocumented in this encounter Care Teams Mounted Police Officer Relationship Specialty Start Date End Date Lolly Oliveira MD [address] [place] [address] PCP - General 11/13/08 documented as of this encounter
--- OUTSIDE RECORDS SUMMARY | 2023-12-01 11:38 | XMS_ITS | Encounter Summary ---
Author Organization [facility] Address [address] [place] [address] Care Team Providers Care Customer Service Teller Name Role Phone Lolly Oliveira MD Primary Care Provider Encounter Details Date Type Department Care Team (Late st Contact Info) Description 03/06/2003 Results Only [facility] conversion [address] [place] [address] Lolly Oliveira MD [address] [place], [place] [phone] Social History Tobacco Use Types Packs/Day Years [...] MD PATHOLOGY ORDERABLES Performing Organization Address City/State/[facility] Co de Phone Number [facility] [address] [place] [address] documented in this encounter Visit Diagnoses Not on filedocumented in this encounter Care Teams Customer Service Teller Relationship Specialty Start Date End Date Lolly Oliveira MD [address] [place] [address] PCP - General 11/13/08 documented as of this encounter
--- OUTSIDE RECORDS SUMMARY | 2023-12-01 11:38 | XMS_ITS | Continuity of Care Document ---
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 quadrivalent, PF 12/17/2022 completed Not Available [facility] 03/19/2023 05:33:03 COVID-19, mRNA, LNP-S, PF, herminio-sucrose, 30 mcg/0.3 mL 12/28/2022 completed Not Available [facility] 03/19/2023 05:33:03 Past Encounters Encounter ID Performer Location Encounter Start Date Encounter Closed Date Diagnosis/Indication Diagnosis SNOMED-CT Code Diagnosis ICD10 Code [id number] JU OLIVEIRA MD [address] [address] 11/26/2023 07:26:08 11/26/2023 08:10:59 Screening mammography 49392980 Z12.31 Adjustment disorder 1722 6007 F43.20 Asthma 301887998 J45.90 9 Essential hypertension 74068922 I10 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 Cardiomyopathy 17095637 I10 Hyperlipidemia 04816458 E78.5 Prediabetes 307028360 R7 3.03 Health Concerns Section Related Observation LastModified by Organization Detai ls LastModified Time None Recorded Concern Status LastModified by Organization Details LastModified Time None Recorded Payers Encounter Date Sequence Insurance Name Policy Number Policy Lema Covered Member ID Lema Member ID Guarantor Name 11/26/2023 1 [id number]/ [place]ANTAGE - [place]PO) [id number] Luna Mott [id number] Luna Mott Notes Date Note Type Note Provider Name and Address Organization Details Recorded Time 11/26/2023 text/html HPI Notes: Thais here today for follow-up of cardiomyopathy, obesity MD [address], [place], [address], [facility]. 11/28/2023 09:26:44 OBGyn Episode No OBEpisode recorded.
--- OUTSIDE RECORDS SUMMARY | 2023-12-01 11:38 | XMS_ITS | Encounter Summary ---
Author Organization [facility] [place] [address] Care Team Providers Care Work Force Advisor Name Role Phone Lolly Oliveira MD Primary Care Provider [phone] Encounter Details Date Type Department Care Team (Latest Contact Info) Description 10/18/2023 10:00 AM EDT - 10/18/2023 11:59 PM EDT Hospital Encounter Non-[place] [phone] Discharge Disposition: Home Social History Tobacco Use [...] with spacer fluticasone propionate (Flonase) 50 mcg/actuation [place], Suspension 1 spray by Each Nare route daily as needed. documented as of this encounter Plan of Treatment Upcoming Encounters Date Type Department Care Team (Late st Contact Info) Description 01/16/2024 10:00 AM EST Hospital Encounter Non-Invasive [place] [address] Arrived documented as of this encounter Procedures [...] filedocumented in this encounter Care Teams Work Force Advisor Relationship Specialty Start Date End Date Lolly Oliveira MD [address] [place] [address] PCP - General 07/17/13 documented as of this encounter
--- OUTSIDE RECORDS SUMMARY | 2023-12-01 11:38 | XMS_ITS | Encounter Summary ---
Author Organization [facility] [place] [address] Care Team Providers Care Blending Tank Tender Name Role Phone Lolly Oliveira MD Primary Care Provider Encounter Details Date Type Department Care Team (Late st Contact Info) Description 05/18/2023 Refill Dermatology at [address] [address] Nora Meredith LPN Social History [...] patient. She voiced understanding. Order sent to [facility] drug. documented in this encounter Plan of Treatment Upcoming Encounters Date Type Department Care Team (Late st Contact Info) Description 01/16/2024 10:00 AM EST Hospital Encounter Non[place] [address] Arrived documented as of this encounter Visit Diagnoses Not on filedocumented in this encounter Care Teams Blending Tank Tender Relationship Specialty Start Date End Date Lolly Oliveira MD [address] [place] [address] PCP - General 07/17/13 documented as of this encounter
--- OUTSIDE RECORDS SUMMARY | 2023-12-01 11:38 | XMS_ITS | Encounter Summary ---
Author Organization [facility] Address [address] [place] [address] Care Team Providers Care Retail Cosmetics Sales Counter Manager Name Role Phone Lolly Oliveira MD Primary Care Provider [phone] Encounter Details Date Type Department Care Team (Late st Contact Info) Description 04/01/2005 Results Only [facility] [address] [place] [address] Blair Dukes MD [address] [place] [id number] Social History Tobacco Use Types Packs/Day Years [...] ? JING ALVARENGA ? Accession #: ? [id number] ? : ? 1950 (Age: 54) ??F [...] (A). Received in [place]' s fixative labelled [place] and #2 ??transverse colon bx is a single 0.2 x 0.2 x 0.2 cm tissue, submitted intact as (B). ??(Dr. Lechuga)/[facility] End of Report [facility] 04/01/2005 04/02/2005 15: 24 EST Blair Dukes MD PATHOLOGY ORDERABLES [facility] [address] [place] [address] documented in this encounter Visit Diagnoses Not on filedocumented in this encounter Care Teams Retail Cosmetics Sales Counter Manager Relationship Specialty Start Date End Date Lolly Oliveira MD [address] [place] [address] PCP - General 11/13/08 documented as of this encounter
--- OUTSIDE RECORDS SUMMARY | 2023-12-01 11:38 | XMS_ITS | Encounter Summary ---
Author Organization [facility] [place] [address] Care Team Providers Care Supervisor Pipe Finishing Name Role Phone Lolly Oliveira MD Primary Care Provider [phone] Encounter Details Date Type Department Care Team (Late st Contact Info) Description 11/16/2022 Telephone Cardiology at [address] [phone] Luna Rousseau, RN Social History Tobacco Use [...] BP today was 118/57 at [facility] at [facility]. Pt is going twice a week [...] [place] [facility] Encounter Non[place] [address] Arrived documented as of this encounter Visit Diagnoses Not on filedocumented in this encounter Care Teams Supervisor Pipe Finishing Relationship Specialty Start Date End Date Lolly Oliveira MD [address] [place] [address] PCP - General 07/17/13 documented as of this encounter
--- OUTSIDE RECORDS SUMMARY | 2023-12-01 11:38 | XMS_ITS | Encounter Summary ---
Author Organization [facility] [place] [address] Care Team Providers Care Integration Developer Name Role Phone Lolly Oliveira MD Primary Care Provider [phone] Reason for Visit * Reason Onset Date Comments Post Procedure Call 07/30/2022 Encounter Details Date Type Department Care Team (Late st Contact Info) Description 07/30/2022 Notes Only Cardiology at [address] [phone] Rosenda Sutton, RN Post Procedure Call Social History Tobacco Use Types Packs/Day Years Used Date Smoking Tobacco: Never Alcohol Use Standard Drinks/Week Comments Not Currently 0 (1 standard drink = 0.6 oz pur e alcohol) [facility] Inpatient Questions Answer Date Recorded Does [...] 07/30/2022 9:59 AM EDTSummary: Post Procedure Call: SIGNAL OPERATOR LINGUIST implant EP RN Post-Procedure Note: Date of [...] Note: Follow-up Recommendations for Providers: - s/p SIGNAL OPERATOR LINGUIST-D implant - post implant QRS 130 ms - reviewed post-implant instructions - no medication changes - Follow up in device clinic for wound/device check in ~10 days??([facility]) Wound Care: -Wound will heal in [...] [facility] Hospital Encounter Non[place] [address] Arrived documented as of this encounter Visit Diagnoses Not on filedocumented in this encounter Care Teams Integration Developer Relationship Specialty Start Date End Date Lolly Oliveira MD [address] [place] [address] PCP - General 07/17/13 documented as of this encounter
--- OUTSIDE RECORDS SUMMARY | 2023-12-01 11:38 | XMS_ITS | Encounter Summary ---
Author Organization [facility] [place] [address] Care Team Providers Care Metallographer Name Role Phone Lolly Oliveira MD Primary Care Provider [phone] Encounter Details Date Type Department Care Team (Latest Contact Info) Description 07/20/2023 10:00 AM EDT - 07/20/2023 11:59 PM EDT Hospital Encounter Non-Invasive [place] [address] Discharge Disposition: Home Social History Tobacco Use [...] with spacer fluticasone propionate (Flonase) 50 mcg/actuation [place], Suspension 1 spray by Each Nare route daily as needed. documented as of this encounter Plan of Treatment Upcoming Encounters Date Type Department Care Team (Late st Contact Info) Description 01/16/2024 10:00 AM [facility] Hospital Encounter Non-Invasive [place] [address] Arrived documented as of this encounter Procedures [...] on filedocumented in this encounter Care Teams Metallographer Relationship Specialty Start Date End Date Lolly Oliveira MD [address] [place] [address] PCP - General 07/17/13 documented as of this encounter
--- OUTSIDE RECORDS SUMMARY | 2023-12-01 11:38 | XMS_ITS | Encounter Summary ---
Author Organization [facility] Address [address] [place] [address] Care Team Providers Care Echo Vascular Technologist Name Role Phone Lolly Oliveira MD Primary Care Provider [phone] Encounter Details Date Type Department Care Team (Late st Contact Info) Description 04/12/2007 Results Only [facility] [place] conversion [address] [place] [address] Lolly Oliveira MD [address] [place], [place] [id number] Social History Tobacco Use Types Packs/Day Years [...] ? JING ALVARENGA ? Accession #: ? [id number] : ? 1950 (Age: 56) ??F ?Collect Date: ? 04/12/2007 Location: ? [facility] ? Receive Date: ? 04/13/2007 Provider: ?LOLLY OLIVEIRA MD Copy to: ? Specimen/Source: ?ThinPrep Pap Test, Cervix/Endocervix, processed on [facility] ThinPrep Imaging System, with manual evaluation Last [...] Oliveira MD PATHOLOGY ORDERABLES [facility] [address] [place] [address] documented in this encounter Visit Diagnoses Not on filedocumented in this encounter Care Teams Echo Vascular Technologist Relationship Specialty Start Date End Date Lolly Oliveira MD [address] [place] [address] PCP - General 11/13/08 documented as of this encounter
--- OUTSIDE RECORDS SUMMARY | 2023-12-01 11:38 | XMS_ITS | Encounter Summary ---
Author Organization [facility] [place] [address] Care Team Providers Care Plate Conditioner Name Role Phone Lolly Oliveira MD Primary Care Provider [phone] Encounter Details Date Type Department Care Team (Late st Contact Info) Description 03/17/2023 Telephone Cardiology at [address] [phone] Saranya Ma Social History Tobacco Use Types [...] 9:43 AM EST Echo order faxed to [facility] at [phone]. No Prior auth needed. Ref #:[id number]. Saranya Ma Sr. Clinical Procedure [place]/Senior Policy Analyst documented in this encounter Plan of Treatment Upcoming Encounters Date Type Department Care Team (Late st Contact Info) Description 01/16/2024 10:00 AM [facility] Hospital Encounter Non[place] [address] Arrived documented as of this encounter Visit Diagnoses Not on filedocumented in this encounter Care Teams Plate Conditioner Relationship Specialty Start Date End Date Lolly Oliveira MD [address] [place] [address] PCP - General 07/17/13 documented as of this encounter
--- OUTSIDE RECORDS SUMMARY | 2023-12-01 11:38 | XMS_ITS | Encounter Summary ---
Author Organization [facility] Address [address] [place] [address] Care Team Providers Care Tester Waste Disposal Leakage Name Role Phone Lolly Oliveira MD Primary Care Provider [phone] Encounter Details Date Type Department Care Team (Late st Contact Info) Description 02/11/2021 Lab Requisition [facility] - [address] [address] Outr Resulting Lab, Provider Social History Tobacco [...] Resulting Lab MICROBIOLOGY - GENERAL ORDERABLES [facility] [address] [place] [address] * COVID-19 TESTING (02/11/2021 8:00 EST) COVID-19 rt-PCR Result Negative Negative 02/12/2021 14:17 EST [facility] Comment: This test [...] was performed using the med SARS-CoV-2 assay ([employer] on the Med 6800 System Performing Lab Med [address] [facility] Lab 02/12/2021 14:17 EST [facility] Swab 02/11/2021 8:00 EST 02/11/2021 22:22 EST Provider Outr Resulting Lab MICROBIOLOGY - GENERAL ORDERABLES [facility] [address] [place] [address] documented in this encounter Visit Diagnoses Not on filedocumented in this encounter Care Teams Tester Waste Disposal Leakage Relationship Specialty Start Date End Date Lolly Oliveira MD [address] [place] [address] PCP - General 11/13/08 documented as of this encounter
--- OUTSIDE RECORDS SUMMARY | 2023-12-01 11:38 | XMS_ITS | Encounter Summary ---
Author Organization [facility] Address [address] [place] [address] Care Team Providers Care Loan Adviser Name Role Phone Lolly Oliveira MD Primary Care Provider [phone] Encounter Details Date Type Department Care Team (Late st Contact Info) Description 05/29/2002 Results Only [facility] - [facility] conversion [address] [place] [address] Silvia Diehl, [address] [place] [phone] Social History Tobacco Use Types Packs/Day Years [...] ? JING MOTT ? Accession #: ? [id number] : ? 1950 (Age: 51) ??F ?Collect Date: ? 05/29/2002 Location: ? [facility] ? Receive Date: ? 05/31/2002 Provider: ?SILVIA DIEHL ORDER ANALYST Copy to: ? Specimen/Source: ?ThinPrep Pap Test, [...] Report [facility] 05/29/2002 05/31/2002 Silvia Diehl ORDER ANALYST PATHOLOGY ORDERABLES [facility] [address] [place] [address] documented in this encounter Visit Diagnoses Not on filedocumented in this encounter Care Teams Loan Adviser Relationship Specialty Start Date End Date Lolly Oliveira MD [address] [place] [address] PCP - General 11/13/08 documented as of this encounter
--- OUTSIDE RECORDS SUMMARY | 2023-12-01 11:38 | XMS_ITS | Encounter Summary ---
Author Organization [facility] Address [facility] [place] [address] Care Team Providers Care Licensed Journeyman Electrician Name Role Phone Lolly Oliveira MD Primary Care Provider [phone] Reason for Referral * Diagnostic Test (Routine) - Closed Specialty Diagnoses / Procedures Referred By Contkoki t Referred To Contact Cardiology Diagnoses Nonischemic cardiomyopathy Biventricular ICD (implantable cardioverter-defibrillator) in place Procedures Echocardiogram Transthoracic Lalit Mcmahon MD [facility] [place] [address] Referral ID Status Reason Start Date Expiration Date V isits Requested Visits Authorized [id number] Closed Specialty Service Requested 03/15/2023 09/11/2023 1 1 Encounter Details Date Type Department Care Team (Late st Contact Info) Description 03/15/2023 Orders Only Cardiology at [address] [address] [facility] [place] [address] Nonischemic cardiomyopathy; Biventricular ICD (implantable cardioverter-defibrill ator) [...] AM EST Hospital Encounter Non-Invasive [place] [address] Arrived Scheduled Orders Name Type Priority Associated Diagnoses Order Schedule Echocardiogram Transthoracic Echocardiography Routine Nonischemic cardiomyopathy Biventricular ICD (implantable cardioverter-defibr illator) in place Expected: 05/05/2023, Expires: 11/04/2023 documented as of this encounter Visit Diagnoses Diagnosis Nonischemic cardiomyopathy Other primary cardiomyopathies Biventricular ICD (implantable cardioverter-defibrillator) in place documented in this encounter Care Teams Licensed Journeyman Electrician Relationship Specialty Start Date End Date Lolly Oliveira MD [address] [place] [address] PCP - General 07/17/13 documented as of this encounter
--- OUTSIDE RECORDS SUMMARY | 2023-12-01 11:39 | XMS_ITS | Encounter Summary ---
Author Organization [facility] [place] [address] Care Team Providers Care Languages And Literature Instructor Name Role Phone Lolly Oliveira MD Primary Care Provider [phone] Reason for Visit * Reason Comments Follow-up Encounter Details Date Type Department Care Team (Late st Contact Info) Description 05/21/2022 8:00 AM EDT Office Visit Dermatology at [address] [phone] Clay Ramírez MD [address] [facility], [place] [address] Psoriasis, guttate Social History Tobacco Use Types [...] [facility] Hospital Encounter [place] [address] Arrived documented as of this encounter Visit Diagnoses Diagnosis Psoriasis, guttate Other psoriasis documented in this encounter Care Teams Languages And Literature Instructor Relationship Specialty Start Date End Date Lolly Oliveira MD [address] [place] [address] PCP - General 07/17/13 documented as of this encounter
--- OUTSIDE RECORDS SUMMARY | 2023-12-01 11:39 | XMS_ITS | Encounter Summary ---
Author Organization [facility] [place] [address] Care Team Providers Care Protohistorian Name Role Phone Unavailable Primary Care Provider Unavailabl e Encounter Details Date Type Department Care Team (Late st Contact Info) Description 07/14/2013 [place] [phone] Eleno Christian MD [facility] [place] [address] Social History Tobacco Use Types Packs/Day Years [...] AM EST Hospital Encounter Non-[place] [phone] Arrived documented as of this encounter Visit Diagnoses Not on filedocumented in this encounter
--- OUTSIDE RECORDS SUMMARY | 2023-12-01 11:39 | XMS_ITS | Encounter Summary ---
[place] [address] Care Team Providers Care Home Care And Home Health Aides Teacher Name Role Phone Lolly Oliveira MD Primary Care Provider [phone] Encounter Details Date Type Department Care Team [...] AM EST Hospital Encounter Non-Invasive [place] [address] Arrived documented as of this encounter Visit Diagnoses Not on filedocumented in this encounter Care Teams Home Care And Home Health Aides Teacher Relationship Specialty Start Date End Date Lolly Oliveira MD [address] [place] [address] PCP - General 07/17/13 documented as of this encounter
--- OUTSIDE RECORDS SUMMARY | 2023-12-01 11:39 | XMS_ITS | Encounter Summary ---
Author Organization [facility] [place] [address] Care Team Providers Care Firmware Test Engineer Name Role Phone Lolly Oliveira MD Primary Care Provider [phone] Reason for Visit * Auth/Cert (Routine) Specialty Diagnoses / Procedures Referred By Contac t Referred To Contact Diagnoses Left bundle-branch block, unspecified Other cardiomyopathies Left bundle branch block [I44.7]Nonischemic cardiomyopathy [I42.8] Procedures PRG CATH PLMT LEFT HEART CATH & ARTS W/INJ & ANGIO IMG S&I ELECTROPHYSIOLOGY PROCEDURE Lalit Mcmahon MD [facility] [address] [facility] Referral ID Status Reason Start Date Expiration Date Visits Re quested Visits Authorized [id number] 1 1 Encounter Details Date Type Department Care Team (Late st Contact Info) Description 07/23/2022 1:00 PM EDT - 07/23/2022 5:30 PM EDT Surgery [place] [address] Lalit Mcmahon MD [facility] [place] [address] ELECTROPHYSIOLOGY PROCEDURE Social History Tobacco Use Types Packs/Day Years Used Date Smoking Tobacco: Never Tobacco Cessation:Counseling Given: Not Answered Alcohol Use Standard Drinks/Week Comments Not Currently 0 (1 standard drink = 0.6 oz pur e alcohol) [facility] Inpatient Questions Answer Date Recorded [...] Luna Mott Patient Age: 71 y.o. Language: Irish Race: White Ethnicity: Not nor Admit date: 07/23/2022 Discharge date and time: 07/24/22 Attending Physician: Lalit Mcmahon MD Discharge Physician: Lalit Mcmahon MD Follow-up Recommendations for Providers: - s/p SENIOR RECRUITER-D implant - post implant QRS 130 [...] Nevus ??? Solar lentigo Operations/Major Procedures: 07/23/22: [facility] SENIOR RECRUITER-D implant History of Presentation: 71 y.o. female with a history of HFrEF, LBBB, QRS >150, NYHA II who is POD#1 of SENIOR RECRUITER-D implant ([employer]). Hospital Course: Elective admission for SENIOR RECRUITER-D implant Admitted post-implant for pain management, [...] (heart failure with reduced ejection fraction) [I50.20] SENIOR RECRUITER-D implant Admission Condition: good Indication for [...] g Refills: 3 fluticasone propionate 50 mcg/actuation [place], Suspension Commonly known as: Flonase 1 spray [...] incision. Make sure to use a cloth seconds sorter (such as a towel) in between [...] F. The office scheduling phone number is [phone]. ARM MOVEMENT RESTRICTIONS POST-IMPLANT - Do not [...] please call the Cardiac ElectrophysiologyTriage Nurse at [phone], option 3. General Instructions None Discharge References/Attachments [...] incision. Make sure to use a cloth seconds sorter (such as a towel) in between [...] F. The office scheduling phone number is [phone]. ARM MOVEMENT RESTRICTIONS POST-IMPLANT - Do not [...] please call the Cardiac ElectrophysiologyTriage Nurse at [phone], option 3. documented in this encounter Medications [...] with spacer fluticasone propionate (Flonase) 50 mcg/actuation [place], Suspension 1 spray by Each Nare route [...] Cardiac Electrophysiology Post-Implant Device Interrogation Luna Mott [id number] 07/24/2022 History: Luna Mott is a 71 y.o. female with a history of HFrEF, LBBB, QRS >150, NYHA II who is POD#1 of SENIOR RECRUITER-D implant ([employer]). Overall feels well this morning. Ready [...] WOB Neuro- A&Ox3 Device Interrogation: Data ?? Slot Machine Mechanic Model # Serial # Generator [employer] [id number] Atrial Lead [employer] [id number] RV Lead [employer] [id number] LV Lead [employer] [id number] ?? Diagnostics Pacing Mode: DDD 60-130 Underlying Rhythm: [place] Atrial Episodes: None Ventricular Episodes: None FINAL PROGRAMMING: Pacing: Mode Lower rate (ppm) Upper rate (ppm) ?? DDD 60 130 VF: Rate (bpm) #Antitachycardia pacing First shock energy (J) ?? 200 Quick convert 41 VT: 170 Monitor only Monitor only ? Battery and Leads Impedances (ohms) Sensing (mV) Thresholds HV RA RV LV RA RV LV RA RV LV 73 [phone] (LVa) 7.7 13.1 >25 0.4V @ 0.4 ms 0.4V @ 0.4 ms 0.5 V @ 1.0 ms POD#1 CXR: All leads in nominal positioning Impression: 71 y.o. female who is s/p SENIOR RECRUITER-D implant for LBBB, NYHA II, HFrEF. [...] ([facility]) Fadi Nunez MD 07/24/2022 Pager: [phone] I met with the patient today and [...] agreement. ? Dr. Lalit Mcmahon, electrophysiology attending ([id number]) * Zaria Wright RN - 07/23/2022 8:28 [...] HF, QRS > 150 ms presents for SENIOR RECRUITER-D placement. ROS: Denies recent fevers or [...] 0.9) flush 5 mL 5 mL Intravenous [id number] ramos MD ??? sodium chloride 0.9 % [...] HF, QRS > 150 ms presents for SENIOR RECRUITER-D placement. Backup would be LBBAP lead. Antibiotics: cefazolin Rationales for, intended benefits and potential risk of planned procedures reviewed. The patient indicated understanding and agreement with the plan. Informed consent signed. Procedure checklist completed. Fadi Nunez MD Cardiac Electrophysiology Fellow [facility] Pager [phone] 07/23/2022 I met with the patient today [...] agreement. ? Dr. Lalit Mcmahon, electrophysiology attending ([id number]) documented in this encounter Miscellaneous Notes * Brief Op Note - Lalit Mcmahon MD - 07/23/2022 4:04 PM EDT Brief Operative Note Patient Name: Luna Mott : [id number] MR#: [id number] Case Date: 07/23/2022 Surgeon: Surgeon(s) and Role: [...] AM EST Hospital Encounter Non-[place] [address] Arrived Scheduled Orders Name Type Priority Associated Diagnoses Orde r Schedule EKG 12 Lead ECG Routine Cardiac resynchronization therapy defibrillator (SENIOR RECRUITER-D) in place One Time for 1 [...] (Bezet) 522 ms MUSE SYSTEM Calculated R [place] 78 degrees MUSE SYSTEM Calculated T [place] -71 degrees MUSE SYSTEM INTERPRETATION AV dual-paced [...] who have questions please contact the health resident care assistant that requested your imaging first. ? Electronically signed by: Kwame Vargas MD, [facility] ([phone]), at 07/24/2022 6:43 AM Narrative 07/24/2022 6:43 [...] patients who have questions please contactthe health resident care assistant that requested your imaging first. Electronically signed by: Kwame Vargas MD, [facility]([phone]), at 07/24/2022 6:43 AM Lalit Mcmahon MD IMG DX ORDERABLES * ELECTROPHYSIOLOGY PROCEDURE (07/23/2022 1:11 PM EDT) Anatomical Region Laterality Modality Other Narrative 07/23/2022 4:24 PM EDT Table formatting from the original result was not included. BIVENTRICULAR ICD IMPLANTATION Nuclear Medicine Supervisor: Lalit Mcmahon MD Fellow: Fadi Nunez [...] lateral branch of the CS in the MONEGASQUE view. This branch was cannulated with a [...] the entire procedure. LEAD AND GENERATOR DATA: Slot Machine Mechanic Model # Serial # Generator [employer] [id number] Atrial Lead [employer] [id number] RV Lead [employer] [id number] LV Lead [employer] [id number] PACE/SENSE DATA: Sensed wave (mV) Threshold (V) [...] (cGycm2) 300 CONCLUSIONS: Successful implantation of a [employer] biventricular ICD for primary prevention and treatment of symptoms related to congestive heart failure. Follow up in EP clinic in 1-2 months. Procedures performed: new ICD system ( cpt 81377-S6); implant LV lead at time of ICD insertion (cpt 01671) I have read, edited and approve of this report: Lalit Mcmahon MD [facility] Cardiac Electrophysiology 07/23/2022 4:22 PM Procedure Note Lalit Mcmahon MD - 07/23/2022 BIVENTRICULAR ICD IMPLANTATION Nuclear Medicine Supervisor: Lalit Mcmahon MD Fellow: Fadi Nunez [...] appropriate lateralbranch of the CS in the [place] view. This branch was cannulated with a [...] in the entireprocedure. LEAD AND GENERATOR DATA: Slot Machine Mechanic Model # Serial # Generator [employer] [id number] Atrial Lead [employer] [id number] RV Lead [employer] 0672 [id number] LV Lead [employer] [id number] PACE/SENSE DATA: Sensed wave (mV) Threshold (V) [...] (cGycm2) 300 CONCLUSIONS: Successful implantation of a [employer] biventricular ICD forprimary prevention and treatment of symptoms related to congestive heartfailure. Follow up in EP clinic in 1-2 months. Procedures performed: new ICD system ( cpt 92364-I1); implant LV lead attime of ICD insertion (cpt 69953) I have read, edited and approve of this report: Lalit Mcmahon MD S Cardiac Electrophysiology 07/23/2022 4:22 PM Lalit Mcmahon MD EP PROCEDURE ORDERAB LES * POCT Glucose (07/23/2022 12:54 PM EDT) [facility] Signature Glucose, POC 83 65 - 199 mg/dL [facility] Comment: Supplemental ranges: <140 mg/dL before meals <180 mg/dL all other times of the day Blood 07/23/2022 12:5 4 PM EDT 07/23/2022 12:54 PM EDT Lalit Mcmahon MD POINT OF CARE TEST O RDERABLES Performing Organization Address City/[facility]/ZIP Co de Phone Number [facility] [place] [address] * EKG 12 Lead (07/23/2022 12:33 PM EDT) Ventricular rate 72 BPM MUSE SYSTEM Atrial Rate 72 BPM MUSE SYSTEM P-R Interval 158 ms MUSE SYSTEM QRS Duration 176 ms MUSE SYSTEM Q-T Interval 458 ms MUSE SYSTEM QTC Calculated (Bezet) 501 ms MUSE SYSTEM Calculated P [place] 34 degrees MUSE SYSTEM Calculated R [place] 12 degrees MUSE SYSTEM Calculated T [place] -173 degrees MUSE SYSTEM INTERPRETATION Normal sinus rhythm Left bundle branch block Abnormal ECG No previous ECGs available Confirmed by MD Salome, Lalit ([id number]) on 07/23/2022 1:19:03 PM MUSE SYSTEM 07/23/2022 12:3 3 PM EDT 07/23/2022 1:19 PM EDT Lalit Mcmahon MD ECG ORDERABLES Performing Organization Address [facility]/ZIP Co de Phone Number MUSE SYSTEM * Differential, Automated (07/23/2022 11:55 AM EDT) Neutrophil % 62.6 % [facility] Neutrophil Absolute 4.14 1.70 - 6.10 x10(3)/[facility] Lymph % 27.0 % [facility] Lymphocytes Abs 1.8 0.9 - 3.2 x10(3)/[facility] Monocyte % 7.3 % [facility] Monocyte Abs 0.5 0.3 - 0.9 x10(3)/[facility] Eos % 2.3 % [facility] Eosinophils Abs 0.2 0.0 - 0.4 x10(3)/[facility] Basophil % 0.6 % [facility] Baso Absolute 0.0 0.0 - 0.1 x10(3)/[facility] Immature Gran % 0.20 % [facility] Comment: Immature granulocytes(IG's)percentage and absolute count will include metamyelocytes, myelocytes, and promyelocytes. Blood smears from CBCs yielding IG's will be scanned manually for concordance. If this scan disagrees with the automated IG or if promyelocytes are noted, a manual differential will be performed. Immature Gran Absolute 0.01 0.00 - 0.04 x10(3)/[facility] Blood 07/23/2022 11:5 5 AM EDT 07/23/2022 12:07 PM EDT Narrative Resulting Agency Comment Spec In Lab Lalit Mcmahon MD HEMATOLOGY ORDERABLE S [facility] [place] [address] * Hemogram (07/23/2022 11:55 AM EDT) White Blood Cell 6.6 4.0 - 9.5 x10(3)/[facility] Red Blood Cell 4.50 4.00 - 5.21 x10(6)/[facility] Hemoglobin 13.7 11.7 - 15.5 g/dL [facility] Hematocrit 42.5 35.7 - 45.8 % [facility] Mean Cell Volume 94.4 82.6 - 94.4 fL [facility] Mean Cell Hemoglobin 30.4 27.1 - 32.0 pg [facility] Mean Cell Hemoglobin Concentration 32.2 31.7 - 35.0 g/dL [facility] Platelet 193 145 - 357 x10(3)/[facility] RDW Standard Deviation 45.5 37.0 - 46.0 fL [facility] RDW coefficient of variation 13.2 11.5 - 14.1 % [facility] Mean Platelet Volume 9.5 7.6 - 12.9 fL [facility] NRBC% auto 0.0 % [facility] NRBC Absolute 0.000 0.000 - 0.000 x10(3)/[facility] Blood 07/23/2022 11:5 5 AM EDT 07/23/2022 12:07 PM EDT Narrative Resulting Agency Comment Spec In Lab Lalit Mcmahon MD HEMATOLOGY ORDERABLE S [facility] [place] [place] [address] * (ABNORMAL) BMP w/fasting Glucose (07/23/2022 11:55 AM EDT) Glucose Fasting 110(H) 65 - 99 mg/dL [facility] Comment: ?Fasting* Glucose Interpretive [...] of Diabetes Mellitus, Position Statement from the [place] [employer]. ??Diabetes Care, Volume 33, Supplement 1, Mar 2009 Blood Urea Nitrogen 23(H) 8 - 18 mg/dL [facility] Creatinine 1.07 0.70 - 1.20 mg/dL [facility] Sodium 141 135 - 145 mmol/L [facility] Potassium 4.8 3.5 - 5.0 mmol/L [facility] Comment: Please note: ??Patients with WBC >100,000 may have falsely elevated Potassium levels. ??For accurate Potassium quantification in these patients send serum separator tube (gold top) for subsequent determinations. ??Contact the Clinical Chemistry Laboratory if there are any questions. Chloride 106 98 - 107 mmol/L [facility] Carbon Dioxide 26 22 - 31 mmol/L [facility] Anion Gap 9 5 - 15 mmol/L [facility] Calcium 9.7 8.5 - 10.5 mg/dL [facility] Est Glomerular Filtration Rate 55(L) >=60 mL/min/1. 73 m?? [facility] Comment: This patient's estimated [...] Mcmahon MD CHEMISTRY ORDERABLES Performing Organization Address [facility] Co de Phone Number [facility] [place] [address] * Prothrombin Time (07/23/2022 11:55 AM EDT) Prothrombin Time 11.7 9.4 - 12.5 sec [facility] International Normalization Ratio 1.0 [facility] Comment: An INR <2.0 [...] MD HEMATOLOGY ORDERABLE S Performing Organization Address City/[facility] Co de Phone Number [facility] [place] [address] documented in this encounter Visit Diagnoses Diagnosis HFrEF (heart failure with reduced ejection fraction)- Primary Left bundle branch block Other left bundle branch block Nonischemic cardiomyopathy Other primary cardiomyopathies Cardiac resynchronization therapy defibrillator (SENIOR RECRUITER-D) in place Left bundle branch block [...] Routine documented in this encounter Care Teams Firmware Test Engineer Relationship Specialty Start Date End Date Lolly Oliveira MD [address] [place] [address] PCP - General 07/17/13 documented as of this encounter
--- OUTSIDE RECORDS SUMMARY | 2023-12-01 11:39 | XMS_ITS | Encounter Summary ---
Author Organization [facility] [place] [address] Care Team Providers Care Cushion Builder Name Role Phone Lolly Oliveira MD Primary Care Provider [phone] Reason for Referral * Diagnostic Test (Routine) - Closed Specialty Diagnoses / Procedures Referred By Contac t Referred To Contact Radiology Diagnoses Left bundle branch block Nonischemic cardiomyopathy Procedures MRI Cardiac Morphology Function With Flow Velocity Quantification [facility] Contrast MRI Cardiac Morphology Function wwo Contrast Lalit Mcmahon MD [facility] [place] [address] [place] [address] Referral ID Status Reason Start Date Expiration Date V isits Requested Visits Authorized [id number] Closed Specialty Service Requested 05/06/2022 11/07/2023 2 1 Reason for Visit * Diagnostic Test (Routine) - Closed Specialty Diagnoses / Procedures Referred By Contac t Referred To Contact Radiology Diagnoses Left bundle branch block Nonischemic cardiomyopathy Procedures MRI Cardiac Morphology Function With Flow Velocity Quantification o Contrast MRI Cardiac Morphology Function wwo Contrast Lalit Mcmahon MD [facility] [place] [address] [place] [address] Referral ID Status Reason Start Date Expiration Date V isits Requested Visits Authorized [id number] Closed Specialty Service Requested 05/06/2022 11/07/2023 2 1 Encounter Details Date Type Department Care Team (Latest Contact Info) Description 07/14/2022 9:08 AM EDT Hospital Encounter MRI at [facility] [address] Lalit Mcmahon MD [facility] [place] [address] Left bundle branch block; Nonischemic cardiomyopathy Discharge [...] with spacer fluticasone propionate (Flonase) 50 mcg/actuation [place], Suspension 1 spray by Each Nare [...] 71 y.o. : 1950 [address] [facility] [address] Female [phone] (home) No relevant phone numbers on file. Lolly Oliveira MD None Allergies Allergen Reactions ??? Sulfa (Sulfonamide Antibiotics) Date/Time of call: July 07, 2022/11:03 AM/ PREVIOUS MRI SCAN? HEIGHT: WEIGHT: SCHEDULED SCAN: MRI CARDIAC MORPHOLOGY FUNCTION WITH FLOW VELOCITY QUANTIFICATION WWO CONTRAST [[id number]] Order Questions Answers Where will study be performed? [facility] Radiology [120] SUBJECTIVE: Very Claustrophobic CAN [...] ( [place] ) You must have a superintendent drivers present when you check in. This patient has been informed that they require a superintendent drivers to drive them home after this procedure. In the absence of a superintendent drivers, IR will not be able to sedate for your scan. Pt verbalized understanding of these instructions during the pre-procedure education via phone. Yes Name of superintendent drivers: Daughter Phone number: PRIOR SCAN DATE/S SEDATION TYPE SUCCESSFUL 07/14/22 MRI Cardiac Morphology Function with Flow Velocity Quantification wwo Contrast Ativan 1mg x 1 dose Pass Revised 08/03/17 documented in this encounter Plan of Treatment Upcoming Encounters Date Type Department Care Team (Late st Contact Info) Description 01/16/2024 10:00 AM [facility] Hospital Encounter Non-Invasive [place] [address] Arrived documented as of this encounter Procedures [...] have questions please contact the health physician primary care sports medicine that requested your imaging first. ? Electronically signed by: Greyson Herron MD, [facility] ([phone]), at 07/15/2022 9:53 AM Narrative 07/15/2022 9:53 [...] who have questions please contactthe health physician primary care sports medicine that requested your imaging first. Lalit Mcmahon [...] mg documented in this encounter Care Teams Cushion Builder Relationship Specialty Start Date End Date Lolly Oliveira MD [address] [place] [address] PCP - General 07/17/13 documented as of this encounter
--- OUTSIDE RECORDS SUMMARY | 2023-12-01 11:39 | XMS_ITS | Encounter Summary ---
Author Organization [facility] [place] [address] Care Team Providers Care Blood Donor Unit Assistant Name Role Phone Lolly Oliveira MD Primary Care Provider [phone] Encounter Details Date Type Department Care Team (Latest Contact Info) Description 07/26/2013 9:44 AM EDT - 07/26/2013 11:59 PM EDT Hospital [place] [address] CLINIC, Lolly So MD [address] [place], [place] [id number] Mammographic microcalcification Discharge Disposition: Home Social History [...] AM EST Hospital Encounter Non-Invasive [place] [address] Arrived documented as of this encounter Procedures [...] are present on specimen digital X-ray. A The ADEX-Stereo 13 Cylinder marker clip was placed. Cranio-caudal [...] mLs documented in this encounter Care Teams Blood Donor Unit Assistant Relationship Specialty Start Date End Date Lolly Oliveira MD [address] [place] [address] PCP - General 07/17/13 documented as of this encounter
--- OUTSIDE RECORDS SUMMARY | 2023-12-01 11:39 | XMS_ITS | Encounter Summary ---
[place] [address] Care Team Providers Care Oil Field Pumper Name Role Phone Lolly Oliveira MD Primary Care Provider [phone] Encounter Details Date Type Department Care Team [...] EST Hospital Encounter Non-[place] [address] Arrived documented as of this encounter Visit Diagnoses Not on filedocumented in this encounter Care Teams Oil Field Pumper Relationship Specialty Start Date End Date Lolly Oliveira MD [address] [place] [address] PCP - General 07/17/13 documented as of this encounter
--- OUTSIDE RECORDS SUMMARY | 2023-12-01 11:39 | XMS_ITS | Encounter Summary ---
[place] [address] Care Team Providers Care [place] Fishing Boat Crewman Name Role Phone Lolly Oliveira MD Primary Care Provider [phone] Encounter Details Date Type Department Care Team (Late st Contact Info) Description 07/17/2013 [place] [address] Lolly Oliveira MD [address] [place], [place] [id number] Social History Tobacco Use Types Packs/Day Years [...] AM EST Hospital Encounter Non-[place] [address] Arrived documented as of this encounter Procedures Procedure Name Priority Date/Time Associated Diagnosis Comments REQUEST FOR 2ND READ MAMMO Routine 07/17/2013 8:45 AM EDT documented in this encounter Results * Request for 2nd read Mammo (07/17/2013 8:45 AM EDT) Anatomical Region Laterality Modality Other 07/17/2013 8:45 AM EDT Narrative 07/17/2013 3:57 PM EDT INTERPRETATION OF OUTSIDE MAMMOGRAMS (PERFORMED ON 07/06/13 AND 07/14/13) FROM [facility] DATED 07/17/13: ?? DIAGNOSTIC IMAGING SUMMARY: [...] OUTSIDE MAMMOGRAMS (PERFORMED ON 07/06/13 AND 07/14/13) [facility] DATED 07/17/13: DIAGNOSTIC IMAGING SUMMARY: RIGHT [...] on filedocumented in this encounter Care Teams [employer] Fishing Boat Crewman Relationship Specialty Start Date End Date Lolly Oliveira MD [address] [place] [address] PCP - General 07/17/13 documented as of this encounter
--- OUTSIDE RECORDS SUMMARY | 2023-12-01 11:39 | XMS_ITS | Encounter Summary ---
Author Organization [facility] [place] [address] Care Team Providers Care Dental Front Office Assistant Name Role Phone Unavailable Primary Care Provider Unavailabl e Encounter Details Date Type Department Care Team (Late st Contact Info) Description 07/14/2013 External Results XRay at [address] [place] [address] Provider, Scanning Social History Tobacco Use Types [...] AM EST Hospital Encounter Non-Invasive Cardiology Lab [facility] [place] [address] Arrived documented as of this encounter Procedures [...]
--- OUTSIDE RECORDS SUMMARY | 2023-12-01 11:39 | XMS_ITS | Encounter Summary ---
Author Organization [facility] Address [facility] [place] [address] Care Team Providers Care Construction Helper Name Role Phone Lolly Oliveira MD Primary Care Provider [phone] Reason for Visit * Auth/Cert (Routine) Specialty Diagnoses / Procedures Referred By Contac t Referred To Contact Diagnoses Left bundle-branch block, unspecified Other cardiomyopathies Left bundle branch block [I44.7]Nonischemic cardiomyopathy [I42.8] Procedures PRG CATH PLMT LEFT HEART CATH & ARTS W/INJ & ANGIO IMG S&I ELECTROPHYSIOLOGY PROCEDURE Lalit Mcmahon MD [facility] [place] [address] [facility] Referral ID Status Reason Start Date Expiration Date Visits Re quested Visits Authorized [id number] 1 1 Encounter Details Date Type Department Care Team (Late st Contact Info) Description 07/23/2022 1:08 PM EDT Anesthesia Event [place] [address] Monae Gonzalez MD [facility] [place] [address] Maria Elena Snyder CRNA [facility] [place] [address] Anesthesia Record Procedure Summary Procedure Name Responsible [...] 1307; median cubital vein (antecubital fossa), right; uhzv-dkf-nyxxme catheter system; Anatomical Landmarks; 20 gauge; 07/24/22; [...] 1343; metacarpal vein (top of hand), left; zfmx-vde-okunwv catheter system; Anatomical Landmarks; US Not Used; [...] Procedure Summary Date: 07/23/22 Room / Location: [facility] A-LAB ROOM 3 / [facility] EP LABS Anesthesia Start: 1308 Anesthesia Stop: 1633 Procedure: ELECTROPHYSIOLOGY PROCEDURE (Left) Diagnosis: Left bundle branch block Nonischemic cardiomyopathy (Left bundle branch block [I44.7]Nonischemic cardiomyopathy [I42.8]) Providers: Lalit Mcmahon MD Responsible Provider: Monae Gonzalez MD Anesthesia Type: general ASA Status: 4 All Anesthesia Providers: Anesthesiologist: Monae Gonzalez MD; Dominique Sen MD DEPUTY COUNTY COUNSEL: Maria Elena Snyder CRNA Vitals Value Taken Time BP 131/46 07/23/22 1700 Temp 36.7 ??C (98.1 ??F) 07/23/22 1627 Pulse 67 07/23/22 1703 Resp 14 07/23/22 1703 SpO2 98 % 07/23/22 1703 Pain Level Vitals shown include unvalidated device data. Patient Location: PACU/[facility] Level of Consciousness: Conscious but Sleepy Pain [...] and Nonischemic CM (EF 15-20%)who presents for PHARMACY TECHNICIAN INSTRUCTOR-D. No prior anesthetic records. Pt states that [...] daughter/son and patient who. Plan discussed with DEPUTY COUNTY COUNSEL. Anesthesia Screening documented in this encounter Plan of Treatment Upcoming Encounters Date Type Department Care Team (Late st Contact Info) Description 01/16/2024 10:00 AM [facility] Hospital Encounter Non-Invasive [place] [address] Arrived documented as of this [...] mg documented in this encounter Care Teams Construction Helper Relationship Specialty Start Date End Date Lolly Oliveira MD [address] [place] [address] PCP - General 07/17/13 documented as of this encounter
--- OUTSIDE RECORDS SUMMARY | 2023-12-01 11:39 | XMS_ITS | Encounter Summary ---
Author Organization [facility] Address [facility] [place] [address] Care Team Providers Care Net Web Developer Name Role Phone Lolly Oliveira MD Primary Care Provider [phone] Encounter Details Date Type Department Care Team (Late st Contact Info) Description 07/16/2022 Telephone Cardiology at [address] [phone] Lalit Mcmahon MD [facility] [place] [address] Social History Tobacco Use Types Packs/Day Years [...] her nonischemic cardiomyopathy. She is scheduled for POLICY SERVICE COORDINATOR-D implantation next week and looks forward to the procedure. We will see each other next week. Lalit Mcmahon MD [facility] Cardiac Electrophysiology 07/16/2022 8:52 AM documented in this encounter Plan of Treatment Upcoming Encounters Date Type Department Care Team (Late st Contact Info) Description 01/16/2024 10:00 AM EST Hospital Encounter Non-Invasive [place]iology [place] [address] Arrived documented as of this encounter Visit Diagnoses Not on filedocumented in this encounter Care Teams Net Web Developer Relationship Specialty Start Date End Date Lolly Oliveira MD [address] [place] [address] PCP - General 07/17/13 documented as of this encounter
--- OUTSIDE RECORDS SUMMARY | 2023-12-01 11:39 | XMS_ITS | Encounter Summary ---
[place] [address] Care Team Providers Care Bottle Line Worker Name Role Phone Lolly Oliveira MD Primary Care Provider [phone] Encounter Details Date Type Department Care Team [...] AM EST Hospital Encounter Non[place] [address] Arrived documented as of this encounter Visit Diagnoses Not on filedocumented in this encounter Care Teams Bottle Line Worker Relationship Specialty Start Date End Date Lolly Oliveira MD [address] [place] [address] PCP - General 07/17/13 documented as of this encounter
--- OUTSIDE RECORDS SUMMARY | 2023-12-01 11:39 | XMS_ITS | Encounter Summary ---
Author Organization [facility] [place] [address] Care Team Providers Care Coat Maker Name Role Phone Lolly Oliveira MD Primary Care Provider [phone] Reason for Visit * Reason Comments Follow-up Encounter Details Date Type Department Care Team (Late st Contact Info) Description 06/06/2021 8:45 AM EDT Office Visit Dermatology at [address] [address] Clay Ramírez MD [address] [facility] [place] [address] Psoriasis, guttate Social History Tobacco Use Types [...] [facility] Hospital Encounter Non[place] [address] Arrived documented as of this encounter Visit Diagnoses Diagnosis Psoriasis, guttate Other psoriasis documented in this encounter Care Teams Coat Maker Relationship Specialty Start Date End Date Lolly Oliveira MD [address] [place] [address] PCP - General 07/17/13 documented as of this encounter
--- OUTSIDE RECORDS SUMMARY | 2023-12-01 11:39 | XMS_ITS | Encounter Summary ---
Author Organization [facility] [place] [address] Care Team Providers Care Banking And Finance Instructor Name Role Phone Unavailable Primary Care Provider Unavailabl e Encounter Details Date Type Department Care Team (Late st Contact Info) Description 07/04/2012 [place] [phone] Eleno Christian MD [facility] [place] [address] Social History Tobacco Use Types Packs/Day Years [...] AM EST Hospital Encounter Non-Invasive [place] [phone] Arrived documented as of this encounter Procedures [...] is a Non-reportable exam Eleno Christian MD [facility]D ERABLES documented in this encounter Visit Diagnoses Not on filedocumented in this encounter
--- OUTSIDE RECORDS SUMMARY | 2023-12-01 11:39 | XMS_ITS | Encounter Summary ---
Author Organization [facility] [place] [address] Care Team Providers Care Therapy Technician Name Role Phone Lolly Oliveira MD Primary Care Provider [phone] Reason for Visit * Reason Onset Date Comments Pre Procedure Call 07/01/2022 Encounter Details Date Type Department Care Team (Late st Contact Info) Description 07/01/2022 Telephone Cardiology at [address] [phone] Rosenda Sutton RN Pre Procedure Call Social History Tobacco Use Types Packs/Day Years Used Date Smoking Tobacco: Never Sex and Gender Information Value Date Recorded Sex Assigned at Not on file Gender Identity Not on file Sexual Orientation Not on file documented as of this encounter Miscellaneous Notes * Telephone Encounter - Rosenda Sutton RN - 07/01/2022 9:30 AM EDTSummary: Pre Procedure Call: HIGHWAY DESIGN ENGINEER implant EP CUSTOMER SERVICES SUPERVISOR COORDINATION CHECKLIST Patient Name: Luna Mott Patient Performing Pickle Processor: Lalit Mcmahon Referring Provider: Lolly Oliveira Date of Procedure: 07/23/22 Arrival Time/ Case Time: 12:00 pm / 1:00 pm Check In Location: [facility] Date Patient was Called: 07/01/22 Procedure: HIGHWAY DESIGN ENGINEER Company: [employer] Type: HIGHWAY DESIGN ENGINEER-D Laterality: LEFT Orders: Yes Lab Orders: [...] overnight , understands that they will need grab driver on day of discharge Notified pt that Goff catheter may be placed on day of procedure depending on type & duration of case. documented in this encounter Plan of Treatment Upcoming Encounters Date Type Department Care Team (Late st Contact Info) Description 01/16/2024 10:00 AM [facility] Hospital Encounter [place] [address] Arrived documented as of this encounter Visit Diagnoses Not on filedocumented in this encounter Care Teams Therapy Technician Relationship Specialty Start Date End Date Lolly Oliveira MD [address] [place] [address] PCP - General 07/17/13 documented as of this encounter
--- OUTSIDE RECORDS SUMMARY | 2023-12-01 11:39 | XMS_ITS | Encounter Summary ---
Author Organization Count Includes [facility] [address] Care Team Providers Care I&C Tech Name Role Phone Lolly Oliveira MD Primary Care Provider [phone] Reason for Visit * Reason Comments Psoriasis Encounter Details Date Type Department Care Team (Late st Contact Info) Description 04/09/2022 1:45 PM EST Office Visit Dermatology at [address] [address] Clay Ramírez MD [address] [facility] [place] [address] Psoriasis, guttate Social History Tobacco Use Types [...] AM EST Hospital Encounter Non-[place] [address] Arrived documented as of this encounter Visit Diagnoses Diagnosis Psoriasis, guttate Other psoriasis documented in this encounter Care Teams I&C Tech Relationship Specialty Start Date End Date Lolly Oliveira MD [address] [place] [address] PCP - General 07/17/13 documented as of this encounter
--- OUTSIDE RECORDS SUMMARY | 2023-12-01 11:39 | XMS_ITS | Encounter Summary ---
Author Organization [facility] [place] [address] Care Team Providers Care Garbage Pick Up Worker Name Role Phone Lolly Oliveira MD Primary Care Provider [phone] Reason for Visit * Reason Comments Follow-up Encounter Details Date Type Department Care Team (Late st Contact Info) Description 07/02/2022 8:00 AM EDT Office Visit Dermatology at [address] [phone] Clay Ramírez MD [address] [facility] [place] [address] Psoriasis, guttate Social History Tobacco Use Types [...] [facility] Hospital Encounter Non-[place] [address] Arrived documented as of this encounter Visit Diagnoses Diagnosis Psoriasis, guttate Other psoriasis documented in this encounter Care Teams Garbage Pick Up Worker Relationship Specialty Start Date End Date Lolly Oliveira MD [address] [place] [address] PCP - General 07/17/13 documented as of this encounter
--- OUTSIDE RECORDS SUMMARY | 2023-12-01 11:39 | XMS_ITS | Encounter Summary ---
Author Organization [facility] [place] [address] Care Team Providers Care Gas Engine Operator Name Role Phone Lolly Oliveira MD Primary Care Provider [phone] Encounter Details Date Type Department Care Team (Late Contact Info) Description 01/14/2022 Telephone Dermatology at [address] [address] Nora Meredith LPN Social History [...] return to phototherapy. New order sent to [facility]. Reviewed with patient Dr. Mar recommendation. She agrees with plan of care. Advised patient order will be sent to [facility]. She voiced understanding. documented in this encounter Plan of Treatment Upcoming Encounters Date Type Department Care Team (Late Contact Info) Description 01/16/2024 10:00 AM EST Hospital Encounter Non-Invasive [place] [address] Arrived documented as of this encounter Visit Diagnoses Not on filedocumented in this encounter Care Teams Gas Engine Operator Relationship Specialty Start Date End Date Lolly Oliveira MD [address] [place] [address] PCP - General 07/17/13 documented as of this encounter
--- OUTSIDE RECORDS SUMMARY | 2023-12-01 11:39 | XMS_ITS | Encounter Summary ---
Author Organization [facility] [place] [address] Care Team Providers Care Stuffing Machine Operator Name Role Phone Lolly Oliveira MD Primary Care Provider [phone] Encounter Details Date Type Department Care Team (Latest Contact Info) Description 07/17/2013 8:40 AM EDT - 07/17/2013 11:59 PM EDT Hospital Encounter XRay at [address] [place] [phone] [address], [facility] Discharge Disposition: Home Social [...] AM EST Hospital Encounter Non-Invasive [place] [phone] Arrived documented as of this encounter Visit Diagnoses Not on filedocumented in this encounter Care Teams Stuffing Machine Operator Relationship Specialty Start Date End Date Lolly Oliveira MD [address] [place] [address] PCP - General 07/17/13 documented as of this encounter
--- OUTSIDE RECORDS SUMMARY | 2023-12-01 11:39 | XMS_ITS | Encounter Summary ---
Author Organization [facility] [place] [address] Care Team Providers Care Certified Fraud Examiner Name Role Phone Lolly Oliveira MD Primary Care Provider [phone] Encounter Details Date Type Department Care Team (Late st Contact Info) Description 04/01/2021 3:30 PM EST Office Visit Dermatology at [address] [phone] Clay Ramírez MD [address] [facility] [address], [place] [address] Psoriasis, guttate Social History Tobacco Use Types [...] AM EST Hospital Encounter Non-Invasive [place] [address] Arrived documented as of this encounter Visit Diagnoses Diagnosis Psoriasis, guttate Other psoriasis documented in this encounter Care Teams Certified Fraud Examiner Relationship Specialty Start Date End Date Lolly Oliveira MD [address] [place] [address] PCP - General 07/17/13 documented as of this encounter
--- OUTSIDE RECORDS SUMMARY | 2023-12-01 11:39 | XMS_ITS | Encounter Summary ---
Author Organization [facility] [place] [address] Care Team Providers Care Rn Internship Name Role Phone Lolly Oliveira MD Primary Care Provider [phone] Encounter Details Date Type Department Care Team (Late st Contact Info) Description 06/29/2011 Orders [place] [phone] Eleno Christian MD [facility] [place] [address] Social History Tobacco Use Types Packs/Day Years [...] AM EST Hospital Encounter Non-[place]vasive [place] [address] Arrived documented as of this encounter Procedures [...] exam Eleno Christian MD [facility] [place] ORD ERABLES documented in this encounter Visit Diagnoses Not on filedocumented in this encounter Care Teams Rn Internship Relationship Specialty Start Date End Date Lolly Oliveira MD [address] [place] [address] PCP - General 07/17/13 documented as of this encounter
--- OUTSIDE RECORDS SUMMARY | 2023-12-01 11:39 | XMS_ITS | Encounter Summary ---
[place] [address] Care Team Providers Care Biostatistics Teacher Name Role Phone Lolly Oliveira MD Primary Care Provider [phone] Encounter Details Date Type Department Care Team (Latest Contact Info) Description 07/26/2013 9:45 AM EDT - 07/26/2013 11:59 PM EDT Hospital En[place] [address] Mammographic microcalcification Social History Tobacco Use Types [...] AM EST Hospital Encounter Non[place] [address] Arrived documented as of this encounter Procedures Procedure Name Priority Date/Time Associated Diagnosis Comments SURGICAL PATHOLOGY REPORT Routine 07/26/2013 12:12 PM EDT MAMMO SPECIMEN IMAGING DURING BIOPSY Routine 07/26/2013 11:58 AM EDT Mammographic microcalcification documented in this encounter Results * Surgical Pathology Report (07/26/2013 12:12 PM EDT) Final Diagnosis ? [facility] ? Provider: ?? ELENO CHRISTIAN ?? Pt. Name: ?? JING ALVARENGA ? Acc #: ?[id number] ?Pt. ? Col Date: ?? 07/26/2013 ? [...] YAJAIRA ? 07/28/13 Verified by: ? Kwame tSokes MD ? Pathologist ? (Electronic Signature) ? [...] Partially fragmented, fibrofatty needle core biopsies. ? [facility] ? Provider: ?? ELENO CHRISTIAN ?? Pt. Name: ?? JING ALVARENGA ? Acc #: ?[id number] ?Pt. ? Col Date: ?? 07/26/2013 ? [...] City/State/[facility] Co ms Phone Number [facility] [place] [address] * Mammo Specimen Imaging During Biopsy (07/26/2013 [...] microcalcification documented in this encounter Care Teams Biostatistics Teacher Relationship Specialty Start Date End Date Lolly Oliveira MD [address] [place] [address] PCP - General 07/17/13 documented as of this encounter
--- OUTSIDE RECORDS SUMMARY | 2023-12-01 11:39 | XMS_ITS | Encounter Summary ---
[place] [address] Care Team Providers Care Enterprise Architect Name Role Phone Lolly Oliveira MD Primary Care Provider [phone] Encounter Details Date Type Department Care Team [...] AM EST Hospital Encounter Non-Invasive [place] [address] Arrived documented as of this encounter Visit Diagnoses Not on filedocumented in this encounter Care Teams Enterprise Architect Relationship Specialty Start Date End Date Lolly Oliveira MD [address] [place] [address] PCP - General 07/17/13 documented as of this encounter
--- OUTSIDE RECORDS SUMMARY | 2023-12-01 11:39 | XMS_ITS | Encounter Summary ---
Author Organization [facility] [place] [address] Care Team Providers Care Technical Recruiter Name Role Phone Lolly Oliveira MD Primary Care Provider [phone] Reason for Referral * Consultation (Routine) - Closed Specialty Diagnoses / Procedures Referred By Contact Referred To Contact Electrophysiology / Cardiology Diagnoses Left bundle branch block Cardiomyopathy, unspecified type AT MINIMUM PT NEEDS CONSIDERATION FOR DEFIBRILLATOR, ALSO CANDIDATE FOR RESYNCHRONIZATION THERAPY HER QRS IS >0.16 Lolly Oliveira MD [address] [place] [address] [facility] [address] [place] [phone] Referral ID Status Reason Start Date Expiration Date V isits Requested Visits Authorized [id number] Closed Consult, Test & Treat PCP Updated and/or Approved 04/30/2022 04/30/2023 6 6 Encounter Details Date Type Department Care Team (Latest Contact Info) Description 04/30/2022 Transcribe Orders eDH Incoming Referrals [phone] Lolly Oliveira MD [address] [place], [place] [id number] Left bundle branch block; Cardiomyopathy, unspecified type [...] Hospital Encounter Non[place] [address] Arrived Scheduled Referrals Name Type Priority Associated Diagnoses Orde r Schedule Referral to Cardiology Outpatient Referral Routine Left bundle branch block Cardiomyopathy, Unspecified Type Ordered: 04/30/2022 documented as of this encounter Visit Diagnoses Diagnosis Left bundle branch block Other left bundle branch block Cardiomyopathy, unspecified type documented in this encounter Care Teams Technical Recruiter Relationship Specialty Start Date End Date Lolly Oliveira MD [address] [place] [address] PCP - General 07/17/13 documented as of this encounter
--- OUTSIDE RECORDS SUMMARY | 2023-12-01 11:39 | XMS_ITS | Encounter Summary ---
[place] [address] Care Team Providers Care Film Producer Name Role Phone Lolly Oliveira MD Primary Care Provider [phone] Encounter Details Date Type Department Care Team (Late st Contact Info) Description 04/09/2022 Refill Dermatology at [address] [address] Nora Meredith, PREPARED FOODS TEAM LEADER Social History Tobacco Use Types Packs/Day Years [...] [facility] Hospital Encounter Non-Invasive [place] [address] Arrived documented as of this encounter Visit Diagnoses Not on filedocumented in this encounter Care Teams Film Producer Relationship Specialty Start Date End Date Lolly Oliveira MD [address] [place] [address] PCP - General 07/17/13 documented as of this encounter
--- OUTSIDE RECORDS SUMMARY | 2023-12-01 11:39 | XMS_ITS | Encounter Summary ---
Author Organization [facility] [place] [address] Care Team Providers Care Physician Coding Specialist Name Role Phone Lolly Oliveira MD Primary Care Provider [phone] Encounter Details Date Type Department Care Team (Late st Contact Info) Description 10/09/2021 Telephone Dermatology at [address] [address] Nora Meredith LPN Social History [...] [facility] Hospital Encounter Non-[place] [address] Arrived documented as of this encounter Visit Diagnoses Not on filedocumented in this encounter Care Teams Physician Coding Specialist Relationship Specialty Start Date End Date Lolly Oliveira MD [address] [place] [address] PCP - General 07/17/13 documented as of this encounter
--- OUTSIDE RECORDS SUMMARY | 2023-12-01 11:39 | XMS_ITS | Encounter Summary ---
Author Organization [facility] [place] [address] Care Team Providers Care Scrap Metal Collector Name Role Phone Lolly Oliveira MD Primary Care Provider [phone] Encounter Details Date Type Department Care Team (Latest Contact Info) Description 07/18/2013 [place] [phone] Alia Fraire MD [facility] [place] [address] Mammographic microcalcification (Primary Dx) Social History Tobacco [...] AM EST Hospital Encounter Non-[place] [address] Arrived documented as of this encounter Results [...] are present on specimen digital X-ray. A [employer] Eviva-Stereo 13 Cylinder marker clip was placed. [...] performed the procedure without a resident. Alia Frarie MD IMG MAMMO ORDERABLES * Mammo stereotactic [...] calcifications are present on specimendigital X-ray. A [employer] Eviva-Stereo 13 Cylinder marker clip was placed. [...] does not layer and, therefore, are not service support representative of milk of calcium. Again, these [...] does not layer and, therefore, are not service support representative of milk of calcium. Again, these have an amorphous andpunctate appearance and remain indeterminate. Stereotactic guided biopsy isrecommended. Alia Fraire MD IMG MAMMO ORDERABLES documented in this encounter Visit Diagnoses Diagnosis Mammographic microcalcification- Primary Mammographic microcalcification Mammographic microcalcification Mammographic microcalcification Mammographic microcalcification documented in this encounter Care Teams Scrap Metal Collector Relationship Specialty Start Date End Date Lolly Oliveira MD [address] [place] [address] PCP - General 07/17/13 documented as of this encounter
--- OUTSIDE RECORDS SUMMARY | 2023-12-01 11:39 | XMS_ITS | Encounter Summary ---
Author Organization [facility] [place] [address] Care Team Providers Care Mortgage Loan Specialist Name Role Phone Lolly Oliveira MD Primary Care Provider [phone] Reason for Visit * Reason Comments Skin Check Encounter Details Date Type Department Care Team (Late st Contact Info) Description 11/23/2014 10:00 AM EDT Office Visit Dermatology at [address] [address] Clay Ramírez MD [address] [facility], [place] [address] Dermatofibroma; Nevus; Solar lentigo Discharge Disposition: Home [...] [facility] Hospital Encounter [place] [address] Arrived documented as of this encounter Visit Diagnoses Diagnosis Dermatofibroma Benign neoplasm of skin, site unspecified Nevus Benign neoplasm of skin, site unspecified Solar lentigo Other dyschromia documented in this encounter Care Teams Mortgage Loan Specialist Relationship Specialty Start Date End Date Lolly Oliveira MD [address] [place] [address] PCP - General 07/17/13 documented as of this encounter
--- OUTSIDE RECORDS SUMMARY | 2023-12-01 11:39 | XMS_ITS | Encounter Summary ---
Author Organization [facility], Later [facility] [place] [address] Care Team Providers Care Freight Air Brake Fitter Name Role Phone Lolly Oliveira MD Primary Care Provider [phone] Encounter Details Date Type Department Care Team (Latest Contact Info) Description 07/20/2013 9:26 AM EDT - 07/20/2013 11:59 PM EDT Hospital En[place] [address] CLINIC, Lolly So MD [address] [place], [place] [id number] Mammographic microcalcification Discharge Disposition: Home Social History [...] AM EST Hospital Encounter [place] [address] Arrived documented as of this encounter Procedures [...] layer and, therefore, are not sales representative trainee of milk of calcium. Again, these have [...] layer and, therefore, are not sales representative trainee of milk of calcium. Again, these have an amorphous andpunctate appearance and remain indeterminate. Stereotactic guided biopsy isrecommended. Alia Fraire MD IMG MAMMO ORDERABLES documented in this encounter Visit Diagnoses Diagnosis Mammographic microcalcification documented in this encounter Care Teams Freight Air Brake Fitter Relationship Specialty Start Date End Date Lolly Oliveira MD [address] [place] [address] PCP - General 07/17/13 documented as of this encounter
--- OUTSIDE RECORDS SUMMARY | 2023-12-01 11:39 | XMS_ITS | Encounter Summary ---
Author Organization [facility] Address [facility] [place] [address] Care Team Providers Care Forest Law And Policy Professor Name Role Phone Lolly Oliveira MD Primary Care Provider [phone] Reason for Visit * Auth/Cert (Routine) Specialty Diagnoses / Procedures Referred By Contac t Referred To Contact Diagnoses Left bundle-branch block, unspecified Other cardiomyopathies Left bundle branch block [I44.7]Nonischemic cardiomyopathy [I42.8] Procedures PRG CATH PLMT LEFT HEART CATH & ARTS W/INJ & ANGIO IMG S&I ELECTROPHYSIOLOGY PROCEDURE Lalit Mcmahon MD [facility] [place] [address] [facility] Referral ID Status Reason Start Date Expiration Date Visits Re quested Visits Authorized [id number] 1 1 Encounter Details Date Type Department Care Team (Latest Contact Info) Description 07/23/2022 11:39 AM EDT - 07/24/2022 10:23 AM EDT Hospital [place] [id number] Lalit Mcmahon MD [facility] [place] [address] Left bundle branch block; Nonischemic cardiomyopathy; Cardiac resynchronization therapy defibrillator (CAFE HELPER-D) in place Discharge Disposition: Home Social History [...] Luna Mott Patient Age: 71 y.o. Language: Croatian Race: White Ethnicity: Not nor Admit date: 07/23/2022 Discharge date and time: 07/24/22 Attending Physician: Lalit Mcmahon MD Discharge Physician: Lalit Mcmahon MD Follow-up Recommendations for Providers: - s/p CAFE HELPER-D implant - post implant QRS 130 [...] Solar lentigo Operations/Major Procedures: 07/23/22: [facility] CAFE HELPER-D implant History of Presentation: 71 y.o. female with a history of HFrEF, LBBB, QRS >150, NYHA II who is POD#1 of CAFE HELPER-D implant ([employer]). Hospital Course: Elective admission for CAFE HELPER-D implant Admitted post-implant for pain management, [...] (heart failure with reduced ejection fraction) [I50.20] CAFE HELPER-D implant Admission Condition: good Indication for [...] g Refills: 3 fluticasone propionate 50 mcg/actuation [place], Suspension Commonly known as: Flonase 1 spray [...] F. The office scheduling phone number is [phone]. ARM MOVEMENT RESTRICTIONS POST-IMPLANT - Do not [...] please call the Cardiac ElectrophysiologyTriage Nurse at [phone], option 3. General Instructions None Discharge References/Attachments [...] F. The office scheduling phone number is [phone]. ARM MOVEMENT RESTRICTIONS POST-IMPLANT - Do not [...] please call the Cardiac ElectrophysiologyTriage Nurse at [phone], option 3. documented in this encounter Medications [...] with spacer fluticasone propionate (Flonase) 50 mcg/actuation [place], Suspension 1 spray by Each Nare route [...] Cardiac Electrophysiology Post-Implant Device Interrogation Luna Mott [id number] 07/24/2022 History: Luna Mott is a 71 y.o. female with a history of HFrEF, LBBB, QRS >150, NYHA II who is POD#1 of CAFE HELPER-D implant ([employer]). Overall feels well this morning. Ready [...] WOB Neuro- A&Ox3 Device Interrogation: Data ?? Wallcovering Texturer Model # Serial # Generator [employer] [id number] Atrial Lead [employer] [id number] RV Lead [employer] 0672 359886 LV Lead [employer] 4674 [id number] ?? Diagnostics Pacing Mode: DDD 60-130 Underlying Rhythm: [place] Atrial Episodes: None Ventricular Episodes: None FINAL PROGRAMMING: Pacing: Mode Lower rate (ppm) Upper rate (ppm) ?? DDD 60 130 VF: Rate (bpm) #Antitachycardia pacing First shock energy (J) ?? 200 Quick convert 41 VT: 170 Monitor only Monitor only ? Battery and Leads Impedances (ohms) Sensing (mV) Thresholds HV RA RV LV RA RV LV RA RV LV 73 058 034 2220 (LVa) 7.7 13.1 >25 0.4V @ 0.4 ms 0.4V @ 0.4 ms 0.5 V @ 1.0 ms POD#1 CXR: All leads in nominal positioning Impression: 71 y.o. female who is s/p CAFE HELPER-D implant for LBBB, NYHA II, HFrEF. [...] ([facility]) Fadi Nunez MD 07/24/2022 Pager: [phone] I met with the patient today and [...] agreement. ? Dr. Lalit Mcmahon, electrophysiology attending ([id number]) * Zaria Wright RN - 07/23/2022 8:28 [...] HF, QRS > 150 ms presents for CAFE HELPER-D placement. ROS: Denies recent fevers or [...] 0.9) flush 5 mL 5 mL Intravenous [id number] ramos MD ??? sodium chloride 0.9 % [...] HF, QRS > 150 ms presents for CAFE HELPER-D placement. Backup would be LBBAP lead. Antibiotics: cefazolin Rationales for, intended benefits and potential risk of planned procedures reviewed. The patient indicated understanding and agreement with the plan. Informed consent signed. Procedure checklist completed. Fadi Nunez MD Cardiac Electrophysiology Fellow [facility] Pager [phone] 07/23/2022 I met with the patient today [...] agreement. ? Dr. Lalit Mcmahon, electrophysiology attending ([id number]) documented in this encounter Miscellaneous Notes * Brief Op Note - Lalit Mcmahon MD - 07/23/2022 4:04 PM EDT Brief Operative Note Patient Name: Luna Mott : [id number] MR#: [id number] Case Date: 07/23/2022 Surgeon: Surgeon(s) and Role: [...] AM EST Hospital Encounter Non-[place] [address] Arrived Scheduled Orders Name Type Priority Associated Diagnoses Orde r Schedule EKG 12 Lead ECG Routine Cardiac resynchronization therapy defibrillator (CAFE HELPER-D) in place One Time for 1 [...] (Bezet) 522 ms MUSE SYSTEM Calculated R [place] 78 degrees MUSE SYSTEM Calculated T [place] -71 degrees MUSE SYSTEM INTERPRETATION AV dual-paced [...] who have questions please contact the health managed care liaison that requested your imaging first. ? Narrative [...] patients who have questions please contactthe health managed care liaison that requested your imaging first. Lalit Mcmahon MD IMG DX ORDERABLES * ELECTROPHYSIOLOGY PROCEDURE (07/23/2022 1:11 PM EDT) Anatomical Region Laterality Modality Other Narrative 07/23/2022 4:24 PM EDT Table formatting from the original result was not included. BIVENTRICULAR ICD IMPLANTATION Lead C Developer: Lalit Mcmahon MD Fellow: Fadi Nunez MD [...] lateral branch of the CS in the URDU view. This branch was cannulated with a [...] the entire procedure. LEAD AND GENERATOR DATA: Wallcovering Texturer Model # Serial # Generator [employer] [id number] Atrial Lead [employer] 7841 [id number] RV Lead [employer] 0672 [id number] LV Lead [employer] 4674 701393 PACE/SENSE DATA: Sensed wave (mV) Threshold (V) [...] (cGycm2) 300 CONCLUSIONS: Successful implantation of a [employer] biventricular ICD for primary prevention and treatment of symptoms related to congestive heart failure. Follow up in EP clinic in 1-2 months. Procedures performed: new ICD system ( cpt 10742-N4); implant LV lead at time of ICD insertion (cpt 64530) I have read, edited and approve of this report: Lalit Mcmahon MD S Cardiac Electrophysiology 07/23/2022 4:22 PM Procedure Note Lalit Mcmahon MD - 07/23/2022 BIVENTRICULAR ICD IMPLANTATION Lead C Developer: Lalit Mcmahon MD Fellow: Fadi Nunez MD [...] appropriate lateralbranch of the CS in the URDU view. This branch was cannulated with a [...] in the entireprocedure. LEAD AND GENERATOR DATA: Wallcovering Texturer Model # Serial # Generator [employer] [id number] Atrial Lead [employer] 7841 [id number] RV Lead [employer] 0672 075022 LV Lead [employer] 4674 262142 PACE/SENSE DATA: Sensed wave (mV) Threshold (V) [...] (cGycm2) 300 CONCLUSIONS: Successful implantation of a [employer] biventricular ICD forprimary prevention and treatment of symptoms related to congestive heartfailure. Follow up in EP clinic in 1-2 months. Procedures performed: new ICD system ( cpt 59793-C6); implant LV lead attime of ICD insertion (cpt 90541) I have read, edited and approve of this report: Lalit Mcmahon MD [facility] Cardiac Electrophysiology 07/23/2022 4:22 PM Lalit Mcmahon MD EP PROCEDURE ORDERAB LES * POCT Glucose (07/23/2022 12:54 PM EDT) Glucose, POC 83 65 - 199 mg/dL [facility] Comment: Supplemental ranges: <140 mg/dL before meals <180 mg/dL all other times of the day Blood 07/23/2022 12:5 4 PM EDT 07/23/2022 12:54 PM EDT Lailt Mcmahon MD POINT OF CARE TEST O RDERABLES Performing Organization Address [facility] Co de Phone Number [facility] [place] [address] * EKG 12 Lead (07/23/2022 12:33 PM EDT) Ventricular rate 72 BPM MUSE SYSTEM Atrial Rate 72 BPM MUSE SYSTEM P-R Interval 158 ms MUSE SYSTEM QRS Duration 176 ms MUSE SYSTEM Q-T Interval 458 ms MUSE SYSTEM QTC Calculated (Bezet) 501 ms MUSE SYSTEM Calculated P [place] 34 degrees MUSE SYSTEM Calculated R [place] 12 degrees MUSE SYSTEM Calculated T [place] -173 degrees MUSE SYSTEM INTERPRETATION Normal sinus rhythm Left bundle branch block Abnormal ECG No previous ECGs available Confirmed by MD Salome, Lalit ([id number]) on 07/23/2022 1:19:03 PM MUSE SYSTEM 07/23/2022 12:3 3 PM EDT 07/23/2022 1:19 PM EDT Lalit Mcmahon MD ECG ORDERABLES Performing Organization Address [facility] de Phone Number MUSE SYSTEM * Differential, Automated (07/23/2022 11:55 AM EDT) Neutrophil % 62.6 % [facility] Neutrophil Absolute 4.14 1.70 - 6.10 x10(3)/[facility] Lymph % 27.0 % [facility] Lymphocytes Abs 1.8 0.9 - 3.2 x10(3)/[facility] Monocyte % 7.3 % [facility] Monocyte Abs 0.5 0.3 - 0.9 x10(3)/[facility] Eos % 2.3 % [facility] Eosinophils Abs 0.2 0.0 - 0.4 x10(3)/[facility] Basophil % 0.6 % [facility] Baso Absolute 0.0 0.0 - 0.1 x10(3)/[facility] Immature Gran % 0.20 % [facility] Comment: Immature granulocytes(IG's)percentage and [...] Lab Lalit Mcmahon MD HEMATOLOGY ORDERABLE S [facility] [place] [address] * Hemogram (07/23/2022 11:55 AM EDT) White Blood Cell 6.6 4.0 - 9.5 x10(3)/[facility] Red Blood Cell 4.50 4.00 - 5.21 x10(6)/[facility] Hemoglobin 13.7 11.7 - 15.5 g/dL [facility] Hematocrit 42.5 35.7 - 45.8 % [facility] Mean Cell Volume 94.4 82.6 - 94.4 fL [facility] Mean Cell Hemoglobin 30.4 27.1 - 32.0 pg [facility] Mean Cell Hemoglobin Concentration 32.2 31.7 - 35.0 g/dL [facility] Platelet 193 145 - 357 x10(3)/[facility] RDW Standard Deviation 45.5 37.0 - 46.0 fL [facility] RDW coefficient of variation 13.2 11.5 - 14.1 % [facility] Mean Platelet Volume 9.5 7.6 - 12.9 fL [facility] NRBC% auto 0.0 % [facility] NRBC Absolute 0.000 0.000 - 0.000 x10(3)/mcL [facility] Blood 07/23/2022 11:5 5 AM EDT 07/23/2022 12:07 PM EDT Narrative Resulting Agency Comment Spec In Lab Lalit Mcmahon MD HEMATOLOGY ORDERABLE S [facility] [address] [address] * (ABNORMAL) BMP w/fasting Glucose (07/23/2022 11:55 AM EDT) Glucose Fasting 110(H) 65 - 99 mg/dL [facility] Comment: ?Fasting* Glucose Interpretive [...] of Diabetes Mellitus, Position Statement from the [place] [employer]. ??Diabetes Care, Volume 33, Supplement 1, Mar 2009 Blood Urea Nitrogen 23(H) 8 - 18 mg/dL [facility] Creatinine 1.07 0.70 - 1.20 mg/dL [facility] Sodium 141 135 - 145 mmol/L [facility] Potassium 4.8 3.5 - 5.0 mmol/L [facility] Comment: Please note: ??Patients with WBC >100,000 may have falsely elevated Potassium levels. ??For accurate Potassium quantification in these patients send serum separator tube (gold top) for subsequent determinations. ??Contact the Clinical Chemistry Laboratory if there are any questions. Chloride 106 98 - 107 mmol/L [facility] Carbon Dioxide 26 22 - 31 mmol/L [facility] Anion Gap 9 5 - 15 mmol/L [facility] Calcium 9.7 8.5 - 10.5 mg/dL [facility] Est Glomerular Filtration Rate 55(L) >=60 mL/min/1. 73 m?? [facility] Comment: This patient's estimated [...] CHEMISTRY ORDERABLES Performing Organization Address [facility] Co de Phone Number [facility] [place] [address] * Prothrombin Time (07/23/2022 11:55 AM EDT) Prothrombin Time 11.7 9.4 - 12.5 sec [facility] International Normalization Ratio 1.0 [facility] Comment: An INR <2.0 [...] MD HEMATOLOGY ORDERABLE S Performing Organization Address City/[facility] Co de Phone Number [facility] [place] [address] documented in this encounter Visit Diagnoses Diagnosis HFrEF (heart failure with reduced ejection fraction)- Primary Left bundle branch block Other left bundle branch block Nonischemic cardiomyopathy Other primary cardiomyopathies Cardiac resynchronization therapy defibrillator (CAFE HELPER-D) in place Left bundle branch block [...] Routine documented in this encounter Care Teams Forest Law And Policy Professor Relationship Specialty Start Date End Date Lolly Oliveira MD [address] [place] [address] PCP - General 07/17/13 documented as of this encounter
--- OUTSIDE RECORDS SUMMARY | 2023-12-01 11:39 | XMS_ITS | Encounter Summary ---
Author Organization [facility] [place] [address] Care Team Providers Care Tool Grinder Set Up Operator Gear Name Role Phone Lolly Oliveira MD Primary Care Provider [phone] Reason for Visit * Diagnostic Test (Routine) - Closed Specialty Diagnoses / Procedures Referred By Contac t Referred To Contact Radiology Diagnoses Left bundle branch block Nonischemic cardiomyopathy Procedures MRI Cardiac Morphology Function With Flow Velocity Quantification wwo Contrast MRI Cardiac Morphology Function wwo Contrast Lalit Mcmahon MD [facility] [place] [address] [place] [address] Referral ID Status Reason Start Date Expiration Date V isits Requested Visits Authorized [id number] Closed Specialty Service Requested 05/06/2022 11/07/2023 2 1 Encounter Details Date Type Department Care Team (Latest Contact Info) Description 07/14/2022 9:09 AM EDT - 07/14/2022 11:59 PM EDT Hospital [place] [address] Lalit Mcmahon MD [facility] [place] [address] Discharge Disposition: Home Social History Tobacco Use [...] with spacer fluticasone propionate (Flonase) 50 mcg/actuation [place], Suspension 1 spray by Each Nare route [...] AM EST Hospital Encounter Non-Invasive [place] [address] Arrived documented as of this [...] mLs documented in this encounter Care Teams Tool Grinder Set Up Operator Gear Relationship Specialty Start Date End Date Lolly Oliveira MD [address] [place] [address] PCP - General 07/17/13 documented as of this encounter
--- OUTSIDE RECORDS SUMMARY | 2023-12-01 11:39 | XMS_ITS | Encounter Summary ---
Author Organization [facility]ly [facility] [place] [place] [address] Care Team Providers Care Screen Printing Paster Name Role Phone Lolly Oliveira MD Primary Care Provider [phone] Encounter Details Date Type Department Care Team (Late st Contact Info) Description 07/26/2013 Orders [place] [address] Eleno Christian MD [facility] [place] [address] Social History Tobacco Use Types Packs/Day Years [...] AM EST Hospital Encounter [place] [address] Arrived documented as of this encounter Visit Diagnoses Not on filedocumented in this encounter Care Teams Screen Printing Paster Relationship Specialty Start Date End Date Lolly Oliveira MD [address] [place] [address] PCP - General 07/17/13 documented as of this encounter
--- OUTSIDE RECORDS SUMMARY | 2023-12-01 11:39 | XMS_ITS | Encounter Summary ---
Author Organization [facility] [place] [address] Care Team Providers Care Records Assistant Name Role Phone Lolly Oliveira MD Primary Care Provider [phone] Encounter Details Date Type Department Care Team (Latest Contact Info) Description 07/26/2013 9:45 AM EDT - 07/26/2013 11:59 PM EDT Hospital [place] [address] Mammographic microcalcification Social History Tobacco Use Types [...] AM EST Hospital Encounter Non[place] [address] Arrived documented as of this encounter Procedures [...] microcalcification documented in this encounter Care Teams Records Assistant Relationship Specialty Start Date End Date Lolly lOiveira MD [address] [place] [address] PCP - General 07/17/13 documented as of this encounter
--- OUTSIDE RECORDS SUMMARY | 2023-12-01 11:39 | XMS_ITS | Encounter Summary ---
Author Organization [facility] [place] [address] Care Team Providers Care Sanitary Aide Name Role Phone Lolly Oliveira MD Primary Care Provider [phone] Reason for Referral * Diagnostic Test (Routine) - Closed Specialty Diagnoses / Procedures Referred By Contac t Referred To Contact Radiology Diagnoses Left bundle branch block Nonischemic cardiomyopathy Procedures MRI Cardiac Morphology Function With Flow Velocity Quantification wwo Contrast MRI Cardiac Morphology Function wwo Contrast Lalit Mcmahon MD [facility] [address] [place] [address] Referral ID Status Reason Start Date Expiration Date V isits Requested Visits Authorized [id number] Closed Specialty Service Requested 05/06/2022 11/07/2023 2 1 Encounter Details Date Type Department Care Team (Late st Contact Info) Description 05/06/2022 Orders Only Cardiology at [address] [address] [facility] [address] Left bundle branch block; Nonischemic cardiomyopathy Social [...] Hospital Encounter Non-[place] [address] Arrived documented as of this encounter Results [...] questions please contact the health patient care secretary that requested your imaging first. ? Narrative [...] have questions please contactthe health patient care secretary that requested your imaging first. Lalit Mcmahon MD IMG MRI ORDERABLES documented in this encounter Visit Diagnoses Diagnosis Left bundle branch block Other left bundle branch block Nonischemic cardiomyopathy Other primary cardiomyopathies Left bundle branch block Other left bundle branch block Nonischemic cardiomyopathy Other primary cardiomyopathies documented in this encounter Care Teams Sanitary Aide Relationship Specialty Start Date End Date Lolly Oliveira MD [address] [place] [address] PCP - General 07/17/13 documented as of this encounter
--- OUTSIDE RECORDS SUMMARY | 2023-12-03 13:07 | XMS_ITS | Encounter Summary ---
Author Organization [facility] [place] [address] Care Team Providers Care Substance Addiction Coordinator Name Role Phone Lolly Oliveira MD Primary Care Provider Encounter Details Date Type Department Care Team (Late st Contact Info) Description 03/15/2023 Telephone Cardiology at [address] [phone] Saranya Ma Social History Tobacco Use Types Packs/Day Years Used Date Smoking Tobacco: Never Alcohol Use Standard Drinks/Week Comments Not Currently 0 (1 standard drink = 0.6 oz pur e alcohol) [facility] Inpatient Questions Answer Date Recorded Does [...] [facility] prior to her appt withvtm there on 05/12/23. Message sent to Dr. Mcmahon asking him to put order in if he would like her to have this done. Saranya Ma Sr. Clinical Procedure Splicing Technician/Office Machines Teacher documented in this encounter Plan of Treatment Upcoming Encounters Date Type Department Care Team (Late st Contact Info) Description 01/16/2024 10:00 AM EST Hospital Encounter Non-Invasive [place] [address] Arrived documented as of this encounter Visit Diagnoses Not on filedocumented in this encounter Care Teams Substance Addiction Coordinator Relationship Specialty Start Date End Date Lolly Oliveira MD [address] [place] [address] PCP - General 07/17/13 documented as of this encounter
--- OUTSIDE RECORDS SUMMARY | 2023-12-03 13:07 | XMS_ITS | Clinical Summary ---
Author Organization [facility] [place] [address] Care Team Providers Care Hand Deicer Element Winder Name Role Phone Lolyl Oliveira MD Primary Care Provider [phone] Allergies Active Allergy Reactions Criticality Noted Date [...] spacer Active fluticasone propionate (Flonase) 50 mcg/actuation [place], Suspension 1 spray by Each Nare route [...] PM EDT Hospital Encounter [place] [address] Discharge Disposition: Home from Last [...] AM EST Hospital Encounter [place] [address] Arrived Health Maintenance Due Date Last Done [...] - PCV) 2013 Covid-19 Vaccine (1 - season) 2023 Influenza (Flu) vaccine (1 o f 1 - Influenza standard series) 11/07/2023 Medical Devices Implanted Type Area Lumber Piler Operator Device Identifier Shelf Expiration Date Model / Serial / Lot Bsx: [id number]: [id number]/18/2 023 Implanted: by Lalit Mcmahon MD (Quantity not on file) Defibrillator Chest Wall [employer] [id number] / [id number] / Bsx: [id number]: 988428-5/18/2 023 Implanted: by Lalit Mcmahon MD (Quantity not on file) Lead Heart [employer] 4674 / [id number] / Bsx: [id number]: [id number] Implanted: by Lalit Mcmahon MD (Quantity not on file) Lead Heart [employer] 7841 / [id number] / Bsx: 0672: [id number]/18/2 023 Implanted: by Lalit Mcmahon MD (Quantity not on file) Lead Heart [employer] 0672 / [id number] / Procedures Procedure Name Priority Date/Time Associated Diagnosis Comments CARDIAC DEVICE CHECK - REMOTE Routine 11/19/2023 4:31 AM EDT from Last 3 Months Results * Cardiac Device Check - Remote (11/19/2023 4:31 AM EDT) Anatomical Region Laterality Modality Other 11/19/2023 4:31 AM EDT Tre Aleman MD IMPLANTABLE CARDIAC DEVICE from Last 3 Months Advance Directives * Attempt Cardiopulmonary Resuscitation - Inpatient (Latest Code Status on File) Date Activated Date Inactivated Comments 07/23/2022 4:30 PM 07/24/2022 12:32 PM Question Answer Comments Code Status decision made by: Patient Care Teams Hand Deicer Element Winder Relationship Specialty Start Date End Date Lolly Oliveira MD [address] [place] [address] PCP - General 07/17/13
--- OUTSIDE RECORDS SUMMARY | 2023-12-03 13:07 | XMS_ITS | Encounter Summary ---
Author Organization [facility] [place] [address] Care Team Providers Care Steam And Power Superintendent Name Role Phone Lolly Oliveira MD Primary Care Provider [phone] Encounter Details Date Type Department Care Team (Latest Contact Info) Description 04/21/2023 10:00 AM EST - 04/21/2023 11:59 PM EST Hospital Encounter Non-[place] [phone] Discharge Disposition: Home Social History Tobacco Use [...] with spacer fluticasone propionate (Flonase) 50 mcg/actuation [place], Suspension 1 spray by Each Nare route [...] AM EST Hospital Encounter Non-Invasive Cardiology Lab [place], [place] [...] on filedocumented in this encounter Care Teams Steam And Power Superintendent Relationship Specialty Start Date End Date Lolly Oliveira MD [address] [place] [address] PCP - General 07/17/13 documented as of this encounter
--- OUTSIDE RECORDS SUMMARY | 2023-12-03 13:07 | XMS_ITS | Clinical Summary ---
Author Organization [facility] Address [address] [place] [address] Care Team Providers Care Shellfish Dredge Operator Name Role Phone Lolly Oliveira MD Primary Care Provider [phone] Social History Tobacco Use Types Packs/Day Years [...] COVID-19 Vaccine ( season) 2023 Care Teams Shellfish Dredge Operator Relationship Specialty Start Date End Date Lolly Oliveira MD [address] [place], [place] [id number] PCP - General 11/13/08
--- OUTSIDE RECORDS SUMMARY | 2023-12-03 13:07 | XMS_ITS | Encounter Summary ---
Author Organization [facility] Address [address] [place] [address] Care Team Providers Care Receiver Stocker Name Role Phone Lolly Oliveira MD Primary Care Provider [phone] Encounter Details Date Type Department Care Team (Late st Contact Info) Description 06/16/2012 Results Only [facility] Laboratory Services - [facility] ([facility] [place]) [address] [place], [place] [phone] Lolly Oliveira MD [address] [place], [place] [id number] Social History Tobacco Use Types Packs/Day Years [...] ? JING ALVARENGA ? Accession #: ? [id number] : ? 1950 (Age: 61) ??F ?Collect [...] MD PATHOLOGY ORDERABLES [facility] [address] [place] [address] documented in this encounter Visit Diagnoses Not on filedocumented in this encounter Care Teams Receiver Stocker Relationship Specialty Start Date End Date Lolly Oliveira MD [address] [place] [address] PCP - General 11/13/08 documented as of this encounter
--- OUTSIDE RECORDS SUMMARY | 2023-12-03 13:07 | XMS_ITS | Encounter Summary ---
Author Organization [facility] Address [address] [place] [address] Care Team Providers Care Copper Tapper Name Role Phone Lolly Oliveira MD Primary Care Provider Encounter Details Date Type Department Care Team (Late st Contact Info) Description 04/25/[address] [facility] Laboratory Services - [facility] ([facility]) [address] [place], [place] [phone] Lolly Oliveira MD [address] [place], [place] [id number] Social History Tobacco Use Types Packs/Day Years [...] ? JING ALVARENGA ? Accession #: ? [id number] ? : ? 1950 (Age: 58) ??F [...] reviewed and electronically signed by: ? Helena Boone, CT(ASCP) ? Report Date: ??04/29/2009 10:38 ? End of Report ? [facility] 04/25/2009 04/26/2009 Lolly Oliveira MD PATHOLOGY ORDERABLES [facility] [address] [place] [address] documented in this encounter Visit Diagnoses Not on filedocumented in this encounter Care Teams Copper Tapper Relationship Specialty Start Date End Date Lolly Oliveira MD [address] [place] [address] PCP - General 11/13/08 documented as of this encounter
--- OUTSIDE RECORDS SUMMARY | 2023-12-03 13:07 | XMS_ITS | Encounter Summary ---
Author Organization [facility] Address [address] [place] [address] Care Team Providers Care Brick Siding Applicator Name Role Phone Lolly Oliveira MD Primary Care Provider [phone] Encounter Details Date Type Department Care Team (Late st Contact Info) Description 03/21/2019 Lab Requisition [facility] Pathology & Laboratory Medicine - [address] [address] Unknown, Provider, Social History Tobacco Use Types [...] 211 - 911 pg/mL 03/22/2019 11:52 EST [facility] Blood VENOUS BLOOD / Unknown 03/16/2019 9:25 EST 03/21/2019 21:35 EST Provider Unknown CHEMISTRY & BLOOD GA S ORDERABLES [facility] [address] [place] [address] documented in this encounter Visit Diagnoses Not on filedocumented in this encounter Care Teams Brick Siding Applicator Relationship Specialty Start Date End Date Lolly Oliveira MD [address] [place] [address] PCP - General 11/13/08 documented as of this encounter
--- OUTSIDE RECORDS SUMMARY | 2023-12-03 13:07 | XMS_ITS | Encounter Summary ---
Author Organization [facility] [place] [address] Care Team Providers Care Field Crop Grower Name Role Phone Lolly Oliveira MD Primary Care Provider [phone] Encounter Details Date Type Department Care Team (Late st Contact Info) Description 05/18/2023 Refill Dermatology at [address] [address] Nora Meredith LPN Social History [...] patient. She voiced understanding. Order sent to [facility] drug. documented in this encounter Plan of Treatment Upcoming Encounters Date Type Department Care Team (Late st Contact Info) Description 01/16/2024 10:00 AM EST Hospital Encounter [place] [address] Arrived documented as of this encounter Visit Diagnoses Not on filedocumented in this encounter Care Teams Field Crop Grower Relationship Specialty Start Date End Date Lolly Oliveira MD [address] [place] [address] PCP - General 07/17/13 documented as of this encounter
--- OUTSIDE RECORDS SUMMARY | 2023-12-03 13:07 | XMS_ITS | Encounter Summary ---
Author Organization [facility] [place] [address] Care Team Providers Care Cop Examiner Name Role Phone Lolly Oliveira MD Primary Care Provider [phone] Encounter Details Date Type Department Care Team (Latest Contact Info) Description 10/18/2023 10:00 AM EDT - 10/18/2023 11:59 PM EDT Hospital Encounter [place] [address] Discharge Disposition: Home Social History Tobacco Use [...] with spacer fluticasone propionate (Flonase) 50 mcg/actuation [place], Suspension 1 spray by Each Nare route daily as needed. documented as of this encounter Plan of Treatment Upcoming Encounters Date Type Department Care Team (Late st Contact Info) Description 01/16/2024 10:00 AM EST Hospital Encounter [place] [address] Arrived documented as of this encounter Procedures [...] on filedocumented in this encounter Care Teams Cop Examiner Relationship Specialty Start Date End Date Lolly Oliveira MD [address] [place] [address] PCP - General 07/17/13 documented as of this encounter
--- OUTSIDE RECORDS SUMMARY | 2023-12-03 13:07 | XMS_ITS | Encounter Summary ---
Author Organization [facility] Address [address] [place] [address] Care Team Providers Care Information Technology Teacher Name Role Phone Lolly Oliveira MD Primary Care Provider [phone] Encounter Details Date Type Department Care Team (Late st Contact Info) Description 03/06/2003 Results Only [facility] [place] conversion [address] [place] [address] Lolly Oliveira MD [address] [place], [place] [id number] Social History Tobacco Use Types Packs/Day Years [...] reading/interpreti ng unformatted reports. Name: ? JING ALVAREGNA ? Accession #: ? [id number] : ? [...] MD PATHOLOGY ORDERABLES Performing Organization Address City/State/[facility] Co de Phone Number [facility] [address] [place] [address] documented in this encounter Visit Diagnoses Not on filedocumented in this encounter Care Teams Information Technology Teacher Relationship Specialty Start Date End Date Lolly Oliveira MD [address] [place] [address] PCP - General 11/13/08 documented as of this encounter
--- OUTSIDE RECORDS SUMMARY | 2023-12-03 13:07 | XMS_ITS | Encounter Summary ---
Author Organization [facility] [place] [address] Care Team Providers Care Kettle Room Helper Name Role Phone Lolly Oliveira MD Primary Care Provider [phone] Encounter Details Date Type Department Care Team (Late st Contact Info) Description 03/17/2023 Telephone Cardiology at [address] [phone] Saranya Ma Social History Tobacco Use Types Packs/Day Years Used Date Smoking Tobacco: Never Alcohol Use Standard Drinks/Week Comments Not Currently 0 (1 standard drink = 0.6 oz pur e alcohol) [facility] Inpatient Questions Answer Date Recorded Does [...] 9:43 AM EST Echo order faxed to [facility] at [phone]. No Prior auth needed. Ref #:[id number]. Saranya Ma Sr. Clinical Procedure [place]/Senior Linux Unix Engineer documented in this encounter Plan of Treatment Upcoming Encounters Date Type Department Care Team (Late st Contact Info) Description 01/16/2024 10:00 AM [facility] Hospital Encounter [place] [address] Arrived documented as of this encounter Visit Diagnoses Not on filedocumented in this encounter Care Teams Kettle Room Helper Relationship Specialty Start Date End Date Lolly Oliveira MD [address] [place] [address] PCP - General 07/17/13 documented as of this encounter
--- OUTSIDE RECORDS SUMMARY | 2023-12-03 13:07 | XMS_ITS | Encounter Summary ---
Author Organization [facility] [place] [address] Care Team Providers Care Architectural Model Maker Name Role Phone Lolly Oliveira MD Primary Care Provider [phone] Encounter Details Date Type Department Care Team (Late st Contact Info) Description 05/18/2023 Telephone Dermatology at [address] [address] Nora Meredith LPN Social History [...] [facility] Hospital Encounter Non-Invasive [place] [phone] Arrived documented as of this encounter Visit Diagnoses Not on filedocumented in this encounter Care Teams Architectural Model Maker Relationship Specialty Start Date End Date Lolly Oliveira MD [address] [place] [address] PCP - General 07/17/13 documented as of this encounter
--- OUTSIDE RECORDS SUMMARY | 2023-12-03 13:07 | XMS_ITS | Encounter Summary ---
Author Organization [facility] Address [address] [place] [address] Care Team Providers Care Pocket Builder Name Role Phone Lolly Oliveira MD Primary Care Provider [phone] Encounter Details Date Type Department Care Team (Late st Contact Info) Description 05/02/2004 Results Only [facility] [place] conversion [address] [place] [address] Lolly Oliveira MD [address] [place], [place] [id number] Social History Tobacco Use Types Packs/Day Years [...] 68. [facility] Report Status Final [id number] [facility] 05/02/2004 9:32 EST 05/10/2004 9:32 EST Lolly Oliveira MD MICROBIOLOGY - GENER AL ORDERABLES [facility] [address] [place] [address] * CYTOPATHOLOGY (05/02/2004 0:00 EST) Pathology Report: CYTOPATHOLOGY REPORT Reports generated via electronic interface contain original data; however they are lacking the format of the original report. Caution should be taken when reading/interpreti ng unformatted reports. Name: ? JING ALVARENGA ? Accession #: ? [id number] : ? 1950 (Age: 53) ??F ?Collect [...] Oliveira MD PATHOLOGY ORDERABLES Performing Organization Address City/State/[facility] Co de Phone Number [facility] [address] [place] [address] documented in this encounter Visit Diagnoses Not on filedocumented in this encounter Care Teams Pocket Builder Relationship Specialty Start Date End Date Lolly Oliveira MD [address] [place] [address] PCP - General 11/13/08 documented as of this encounter
--- OUTSIDE RECORDS SUMMARY | 2023-12-03 13:07 | XMS_ITS | Encounter Summary ---
Author Organization [facility] Address [address] [place] [address] Care Team Providers Care Enrollment Management Director Name Role Phone Lolly Oliveira MD Primary Care Provider [phone] Encounter Details Date Type Department Care Team (Late st Contact Info) Description 04/17/2005 Results Only [facility] [place] conversion [address] [place] [address] Lolly Oliveira MD [address] [place], [place] [id number] Social History Tobacco Use Types Packs/Day Years [...] ? JING ALVARENGA ? Accession #: ? [id number] : ? 1950 (Age: 54) ??F ?Collect Date: ? 04/17/2005 Location: ? [facility] ? Receive Date: ? 04/21/2005 Provider: ?LOLLY OLIVEIRA MD Copy to: ? Specimen/Source: ?ThinPrep Pap Test, Cervix/Endocervix, processed on [employer] App[employer] Imaging System, with manual evaluation Last Menstrual [...] Oliveira MD PATHOLOGY ORDERABLES [facility] [address] [place] [address] documented in this encounter Visit Diagnoses Not on filedocumented in this encounter Care Teams Enrollment Management Director Relationship Specialty Start Date End Date Lolly Oliveira MD [address] [place] [address] PCP - General 11/13/08 documented as of this encounter
--- OUTSIDE RECORDS SUMMARY | 2023-12-03 13:07 | XMS_ITS | Data Portability ---
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 05/21/2023 How Often Does Anyone, Including Family, Threaten You With Harm? Never [email or web address] Information not available 05/21/2023 How Often Does Anyone, Including Family, Scream Or Curse At You? Never [email or web address] Information not available 05/21/2023 Within The Past 12 Months, You Worried That Your Food Would Run Out Before You Got Money To Buy More. Never True [email or web address] Information n ot available 05/21/2023 Within The Past 12 Months, The Food You Bought Just Didn't Last And You Didn't Have Money To Get More. Never True owvmysnb00 Information n ot available 05/21/2023 How Hard Is It For You To Pay For The Very Basics Like Food, Housing, Medical Care, And Heating? Would You Say It Is: Not Hard At All [email or web address] Information not available 05/21/2023 In The Past 12 Months, Has Lack Of Reliable Transportation Kept You From Medical Appointments, Meetings, Work Or From Getting Things Needed For Daily Living? No Information not available 05/21/2023 What Is Your Housing Situation Today? I Have Housing. [email or web address] Information not available 05/21/2023 How Often In The Past Year Have You Used Marijuana (including Smoking, Vaping, Dabbing, Or Edibles)? Never [email or web address] Information not available 05/21/2023 How Often In The Past Year Have You Used Prescription Medications That Were Not Prescribed To You? Never [email or web address] Information n ot available 05/21/2023 How Often In The Past Year Have You Taken Your Own Prescription Medication More Than The Way It Was Prescribed Or For Different Reasons Than Its Intended Purpose? Never qjrhtioo55 Information no t available 05/21/2023 How Often In The Past Year Have You Used Other Drugs (for Example, Heroin, Cocaine, Meth, Salvia, Inhalants)? Never zsrgdqwy50 Information not available 05/21/2023 Have You Ever Used IV Drugs? No Information not available 05/21/2023 What Matters Most To You? Staying Healthy, Keeping Active. Getting Exercise And Losing Some Weight [email or web address] Information not available 05/21/2023 During The Past Four Weeks Has Your Physical And Emotional Health Limited Your Social Activities With Family And Friends, Neighbors, Or Groups? Not At All zehchycj85 Information not available 05/21/2023 During The Past Four Weeks, Was Someone Available To Help You If You Needed And Wanted Help? (For Example, If You [place] Very Nervous, Lonely, Or Blue; Got Sick And Had To Stay In Bed; Needed Someone To Talk To; Needed Help With Daily Chores; Or Needed Help Just Taking Care Of Yourself.) No- Not At All xhujzixw86 Information n ot available 05/21/2023 During The Past Four Weeks, What Was The Hardest Physical Activity You Could Do For At Least 2 Minutes? Moderate danrbhvv48 Information not available 05/21/2023 Can You Get To Places Out Of Walking Distance Without Help? (For Example, Can You Travel Alone On Buses Or Taxis, Or Drive Your Own Car?) Yes Information not available 05/21/2023 Can You Go Shopping For Groceries Or Clothes Without Someone? s Help? Yes [email or web address] Information not available 05/21/2023 Can You Prepare Your Own Meals? Yes zalfuplk98 Information not available 05/21/2023 Can You Do Your Housework Without Help? Yes [email or web address] Information not available 05/21/2023 Because Of Any Health Problems, Do You Need The Help Of Another Person With Your Personal Care Needs Such As Eating, Bathing, Dressing, Or Getting Around The House? No [email or web address] Information not available 05/21/2023 Can You Handle Your Own Money Without Help? Yes ewspuhun53 Information not available 05/21/2023 Are You Having Difficulties Driving Your Car? No eflyzoww54 Information no t available 05/21/2023 Do You Always Fasten Your Seat Belt When You Are In A Car? Yes- Usually [email or web address] Information not available 05/21/2023 How Often During The Past Four Weeks Have You Been Bothered By Any Of The Following Problems? Falling Or Dizzy When Standing Up? Never [email or web address] Information not available 05/21/2023 Sexual Problems? Never Informat ion not available 05/21/2023 Trouble Eating Well? Sometimes mguazxrz86 Information not available 05/21/2023 Teeth Or Denture Problems? Sometimes pykdpsft32 Information not available 05/21/2023 Problems Using The Telephone? Never xypzhozc85 Information not available 05/21/2023 Tiredness Or Fatigue? Sometimes jninbbgz50 Information not available 05/21/2023 Have You Had 2 Or More Falls Or Sustained An Injury With A Fall In The Last Year? No yupjxhjn85 Information no t available 05/21/2023 Do You Have Difficulty With Walking Or Balance? No aurygpot94 Information not available 05/21/2023 Do You Currently Use A Hearing Device? No iyuglotm03 Information not available 05/21/2023 Do You Currently Have Any Trouble With Your Vision? Yes xoasuofn91 Information no t available 05/21/2023 Do You Exercise For About 20 Minutes Three Or More Days A Week? Yes- Most Of The Time kehsfhdn51 Information not available 05/21/2023 Are There Any Safety Concerns In Your Home (see Attached CDC Pamphlet)? No mphrjfne39 Information not available 05/21/2023 How Often Do You Have Trouble Taking Medicines The Way You Have Been Told To Take Them? I Always Take Them As Prescribed yncnnlgx46 Information not available 05/21/2023 How Confident Are You That You Can Control And Manage Most Of Your Health Problems? Very Confident [email or web address] Information not available 05/21/2023 Do You Currently Have Any Difficulty With Your Hearing? No ecysmdeb94 Information not available 05/21/2023 Date Of Most Recent SBINS 05/21/2023 ltkcualm17 Information not available 05/21/2023 What Was The Date Of Your Most Recent Tobacco Screening? 09/01/2023 Information not available 09/01/2023 Has Tobacco Cessation Counseling Been Provided? Yes Information not available 09/01/2023 On What Date Was Tobacco Cessation Counseling Provided? 09/01/2023 Information not available 09/01/2023 Do You Or Have You Ever Used Any Other Forms Of Tobacco Or Nicotine? No [email or web address] Information not available 05/21/2023 Sex: Female Functional Status None recorded. Mental Status None recorded. Family History Relationship Description Onset Age of this Age Resolved Age Notes LastModified by Organization Details LastModified Time Sister Family history of Hypertension [email or web address] Not available 12/2022 03:57:11 Sister Family history [...] a brain bleed, ended up with a Shannon filter. Brother - Agent orange exposure SISTER [...] 01/15/2023 04:53:39 Tdap 04/12/2007 completed Not Available [facility] 04:53:39 zoster live 06/16/2012 completed Not Available [facility] 01/15/2023 04:53:40 Pneumococcal conjugate PCV 13 09/17/2015 completed Not Available [facility] 01/15/2023 04:53:40 Influenza, high-dose, trivalent, PF 11/26/2017 completed Not Available [facility] 01/15/2023 04:53:41 Td(adult) unspecified formulation 09/30/1992 completed Not Available [facility] 01/15/2023 04:53:41 Influenza, split virus, trivalent, preservative 11/28/2015 completed Not Available [facility] 01/15/2023 04:53:41 Influenza, split virus, trivalent, preservative 01/04/2015 completed Not Available [facility] 01/15/2023 04:53:41 Influenza, split virus, quadrivalent, PF 12/21/2018 completed Not Available [facility] 01/15/2023 04:53:41 zoster recombinant 08/30/[address] [facility] 01/15/2023 04:53:42 zoster recombinant 01/26/[address] [facility] 01/15/2023 04:53:42 Influenza, high-dose, quadrivalent, PF 12/04/2020 completed Not Available [facility] 01/15/2023 04:53:43 Influenza, high-dose, quadrivalent, PF 12/11/2019 completed Not Available [facility] 01/15/2023 04:53:43 Influenza, high-dose, quadrivalent, PF 12/29/2021 completed Not Available [facility] 01/15/2023 04:53:43 COVID-19, mRNA, LNP-S, PF, 100 mcg/0.5mL dose or 50 mcg/0.25mL dose 07/09/2021 completed Not Available [facility] 01/15/2023 04:53:43 COVID-19 vaccine, vector-nr, rS-Ad26, PF, 0.5 mL 05/02/2020 completed Not Available [facility] 01/15/2023 04:53:44 SARS-COV-2 (COVID-19) vaccine, UNSPECIFIED 05/31/2020 completed Not Available [facility] 01/15/2023 04:53:44 SARS-COV-2 (COVID-19) vaccine, UNSPECIFIED [...] 30 mcg/0.3 mL 12/28/2022 completed Not Available [facility] 03/19/2023 05:33:03 Past Encounters Encounter ID Performer Location Encounter Start Date Encounter Closed Date Diagnosis/Indication Diagnosis SNOMED-CT Code Diagnosis ICD10 Code [id number] LOLLY CORTEZ MD [facility] [address] [place] [address] 05/21/2023 10:03:54 05/21/2023 11:37:49 Onychomycosis 479364221 B35.1 Asthma 170415272 J45.90 9 Cardiomyopathy 76414779 I10 Disorder of hip joint 42 8961356 M12.859 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 Hyperlipidemia 00232664 E78.5 Vulval and /or perineal noninflammatory disorders 333403765 N90.9 Adult heal th examination 573822790 Z00.[id number] [place] [address] 09/01/2023 10:23:16 09/01/2023 13:28:10 Vertigo 160506307 R42 Impacted c erumen of bilateral ears 1270259697 283393 H61.23 [id number] LOLLY CORTEZ MD [facility] [address] [place] [address] 11/26/2023 07:26:08 11/26/2023 08:10:59 Screening mammography 49202844 Z12.31 Adjustment disorder 1722 6007 F43.20 Asthma 616398926 J45.90 9 Essential hypertension 84062272 I10 Guttate psoriasis 243709 00 L40.4 Cardiomyopathy 95860107 I10 Hyperlipidemia 60620898 E78.5 Prediabetes 369599852 R7 3.03 Health Concerns Section Related Observation LastModified by Organization Detai ls LastModified Time None Recorded Concern Status LastModified by Organization Details LastModified Time None Recorded Advance Directives Directive None Recorded Payers Encounter Date Sequence Insurance Name Policy Number Policy Lema Covered Member ID Lema Member ID Guarantor Name 05/21/2023 1 [place] - [place]PO) [id number] Luna Mott [id number] Luna Mott 09/01/2023 1 [place]) [id number] Luna Mott [id number] Luna Mott 11/26/2023 1 [place] - [place]) [id number] Luna Mott [id number] Luna Mott Notes Date Note Type Note Provider Name and Address Organization Details Recorded Time 05/21/2023 text/html HPI Notes: Thais here today for an annual wellness exam MD [address], [place], [address], [facility] 05/24/2023 18:32:35 09/01/2023 text/html HPI Notes: Luna [...] the name of it. [address], [place], [address], [facility]. 09/01/2023 13:55:07 11/26/2023 text/html HPI Notes: Thais here today for follow-up of cardiomyopathy, obesity MD [address], [place], [address], [facility]. 11/28/2023 09:26:44 OBGyn Episode No OBEpisode recorded.
--- OUTSIDE RECORDS SUMMARY | 2023-12-03 13:07 | XMS_ITS | Encounter Summary ---
Author Organization [facility] [place] [address] Care Team Providers Care Pondman Name Role Phone Lolly Oliveira MD Primary Care Provider [phone] Encounter Details Date Type Department Care Team (Latest Contact Info) Description 01/21/2023 10:00 AM EST - 01/21/2023 11:59 PM EST Hospital Encounter [place] [phone] Discharge Disposition: Home Social History Tobacco Use [...] with spacer fluticasone propionate (Flonase) 50 mcg/actuation [place], Suspension 1 spray by Each Nare route [...] AM EST Hospital Encounter Non-[place] [address] Arrived documented as of this [...] on filedocumented in this encounter Care Teams Pondman Relationship Specialty Start Date End Date Lolly Oliveira MD [address] [place] [address] PCP - General 07/17/13 documented as of this encounter
--- OUTSIDE RECORDS SUMMARY | 2023-12-03 13:07 | XMS_ITS | Encounter Summary ---
Author Organization [facility] Address [address] [place] [address] Care Team Providers Care Clinical Staff Rn Name Role Phone Lolly Oliveira MD Primary Care Provider [phone] Encounter Details Date Type Department Care Team (Late st Contact Info) Description 04/01/2005 Results Only [facility] conversion [address] [place] [address] Blair Dukes MD [address] [place] [id number] Social History Tobacco Use Types Packs/Day Years [...] ? JING ALVARENGA ? Accession #: ? [id number] ? : ? 1950 (Age: 54) ??F [...] (A). Received in [place]' s fixative labelled [place] and #2 ??transverse colon bx is a single 0.2 x 0.2 x 0.2 cm tissue, submitted intact as (B). ??(Dr. Lechuga)/[facility] End of Report [facility] 04/01/2005 04/02/2005 15: 24 EST Blair Dukes MD PATHOLOGY ORDERABLES [facility] [address] [place] [address] documented in this encounter Visit Diagnoses Not on filedocumented in this encounter Care Teams Clinical Staff Rn Relationship Specialty Start Date End Date Lolly Oliveira MD [address] [place] [address] PCP - General 11/13/08 documented as of this encounter
--- OUTSIDE RECORDS SUMMARY | 2023-12-03 13:07 | XMS_ITS | Encounter Summary ---
Author Organization [facility] Address [address] [place] [address] Care Team Providers Care Senior Data Developer Name Role Phone Unavailable Primary Care Provider Unavailabl e Encounter Details Date Type Department Care Team (Late st Contact Info) Description 11/07/2008 Orders Only [facility] - [facility] [address] [place] [address] Kenneth Parker MD [address] [place] [address] Social History Tobacco Use Types Packs/Day Years [...] ? LYLE, JING ? Accession #: ? [id number] ? : ? 1950 (Age: 58) ??F [...] Co de Phone Number [facility] [address] [place] [address] documented in this encounter Visit Diagnoses Not on filedocumented in this encounter
--- OUTSIDE RECORDS SUMMARY | 2023-12-03 13:07 | XMS_ITS | Encounter Summary ---
Author Organization [facility] [place] [address] Care Team Providers Care Lathe Mechanic Name Role Phone Lolly Oliveira MD Primary Care Provider [phone] Encounter Details Date Type Department Care Team (Late st Contact Info) Description 11/16/2022 Telephone Cardiology at [address] [phone] Luna Rousseau, RN Social History Tobacco Use Types Packs/Day Years Used Date Smoking Tobacco: Never Alcohol Use Standard Drinks/Week Comments Not Currently 0 (1 standard drink = 0.6 oz pur e alcohol) [facility] Inpatient Questions Answer Date Recorded Does [...] BP today was 118/57 at [facility] at [facility]. Pt is going twice a [...] st Contact Info) Description 01/16/2024 10:00 AM [facility] Hospital Encounter [place] [address] Arrived documented as of this encounter Visit Diagnoses Not on filedocumented in this encounter Care Teams Lathe Mechanic Relationship Specialty Start Date End Date Lolly Oliveira MD [address] [place] [address] PCP - General 07/17/13 documented as of this encounter
--- OUTSIDE RECORDS SUMMARY | 2023-12-03 13:07 | XMS_ITS | Encounter Summary ---
Author Organization [facility] Address [facility] [place] [address] Care Team Providers Care Issuing Operator Name Role Phone Lolly Oliveira MD Primary Care Provider [phone] Reason for Referral * Diagnostic Test (Routine) - Closed Specialty Diagnoses / Procedures Referred By Contkoki t Referred To Contact Cardiology Diagnoses Nonischemic cardiomyopathy Biventricular ICD (implantable cardioverter-defibrillator) in place Procedures Echocardiogram Transthoracic Lalit Mcmahon MD [facility] [place] [address] Referral ID Status Reason Start Date Expiration Date V isits Requested Visits Authorized [id number] Closed Specialty Service Requested 03/15/2023 09/11/2023 1 1 Encounter Details Date Type Department Care Team (Late st Contact Info) Description 03/15/2023 Orders Only Cardiology at [address] [address] Lalit Mcmahon MD [facility] [place] [address] Nonischemic cardiomyopathy; Biventricular ICD (implantable cardioverter-defibrill ator) in place Social History Tobacco Use Types Packs/Day Years Used Date Smoking Tobacco: Never Alcohol Use Standard Drinks/Week Comments Not Currently 0 (1 standard drink = 0.6 oz pur e alcohol) [facility] Questions Answer Date Recorded Does [...] AM EST Hospital Encounter Non-Invasive [place] [address] Arrived Scheduled Orders Name Type Priority Associated Diagnoses Order Schedule Echocardiogram Transthoracic Echocardiography Routine Nonischemic cardiomyopathy Biventricular ICD (implantable cardioverter-defibr illator) in place Expected: 05/05/2023, Expires: 11/04/2023 documented as of this encounter Visit Diagnoses Diagnosis Nonischemic cardiomyopathy Other primary cardiomyopathies Biventricular ICD (implantable cardioverter-defibrillator) in place documented in this encounter Care Teams Issuing Operator Relationship Specialty Start Date End Date Lolly Oliveira MD [address] [place] [address] PCP - General 07/17/13 documented as of this encounter
--- OUTSIDE RECORDS SUMMARY | 2023-12-03 13:07 | XMS_ITS | Encounter Summary ---
Author Organization [facility] Address [address] [place] [address] Care Team Providers Care International Marketing Intern Name Role Phone Lolly Oliveira MD Primary Care Provider [phone] Encounter Details Date Type Department Care Team (Late st Contact Info) Description 05/29/2002 Results Only [facility] [address] [place] [address] Silvia Diehl, [address] [place] [address] Social History Tobacco Use Types Packs/Day Years [...] ? JING MOTT ? Accession #: ? [id number] : ? 1950 (Age: 51) ??F ?Collect Date: ? 05/29/2002 Location: ? [facility] ? Receive Date: ? 05/31/2002 Provider: ?SILVIA DIEHL PEST CONTROL CHEMICAL TECHNICIAN Copy to: ? Specimen/Source: ?ThinPrep Pap [...] Report [facility] 05/29/2002 05/31/2002 Silvia Diehl PEST CONTROL CHEMICAL TECHNICIAN PATHOLOGY ORDERABLES [facility] [address] [place] [address] documented in this encounter Visit Diagnoses Not on filedocumented in this encounter Care Teams International Marketing Intern Relationship Specialty Start Date End Date Lolly Oliveira MD [address] [place] [address] PCP - General 11/13/08 documented as of this encounter
--- OUTSIDE RECORDS SUMMARY | 2023-12-03 13:07 | XMS_ITS | Encounter Summary ---
Author Organization [facility] Address [address] [place] [address] Care Team Providers Care Journeyman Electrician Pv Installer Name Role Phone Lolly Oliveira MD Primary Care Provider [phone] Encounter Details Date Type Department Care Team (Late st Contact Info) Description 05/27/2021 Lab Requisition [facility] Pathology & Laboratory Medicine - [address] [address] Iman Moran, DO [address] [facility] [address] [place], [place] [id number] Encounter for other general examination Social History [...] management options, if applicable. 05/30/2021 13:31 EDT [facility] Final Diagnosis A. COLON, POLYP [...] 13:31 [facility] Performing Lab [facility] 05/30/2021 13:31 [facility] Scanned Images 05/30/2021 13:31 [facility] Tissue ENTIRE COLON / Unknown 05/27/2021 11:23 EDT 05/27/2021 16:33 EDT Iman Moran DO PATHOLOGY ORDERABLES [facility] [address] [place] [address] documented in this encounter Visit Diagnoses Diagnosis Encounter for other general examination documented in this encounter Care Teams Journeyman Electrician Pv Installer Relationship Specialty Start Date End Date Lolly Oliveira MD [address] [place] [address] PCP - General 11/13/08 documented as of this encounter
--- OUTSIDE RECORDS SUMMARY | 2023-12-03 13:07 | XMS_ITS | Encounter Summary ---
Author Organization [facility] Address [address] [place] [address] Care Team Providers Care Peer Counselor Name Role Phone Lolly Oliveira MD Primary Care Provider [phone] Encounter Details Date Type Department Care Team (Late st Contact Info) Description 02/11/2021 Lab Requisition [facility] Pathology & Laboratory Medicine - [address] [address] Outr Resulting Lab, Provider Social History Tobacco [...] Outr Resulting Lab MICROBIOLOGY - GENERAL ORDERABLES [facility] [address] [place] [address] * COVID-19 TESTING (02/11/2021 8:00 EST) COVID-19 rt-PCR Result Negative Negative 02/12/2021 14:17 EST [facility] Comment: This test has not [...] was performed using the med SARS-CoV-2 assay ([employer] on the Med 6800 System Performing Lab Med [address] [facility] Lab 02/12/2021 14:17 EST [facility] Swab 02/11/2021 8:00 EST 02/11/2021 22:22 EST Provider Outr Resulting Lab MICROBIOLOGY - GENERAL ORDERABLES [facility] [address] [place] [address] documented in this encounter Visit Diagnoses Not on filedocumented in this encounter Care Teams Peer Counselor Relationship Specialty Start Date End Date Lolly Oliveira MD [address] [place] [address] PCP - General 11/13/08 documented as of this encounter
--- OUTSIDE RECORDS SUMMARY | 2023-12-03 13:07 | XMS_ITS | Encounter Summary ---
Author Organization [facility] Address [address] [place] [address] Care Team Providers Care Drosser Name Role Phone Lolly Oliveira MD Primary Care Provider [phone] Encounter Details Date Type Department Care Team (Late st Contact Info) Description 02/20/2020 Lab Requisition [facility] Pathology & Laboratory Medicine - [address] [address] Outr Resulting Lab, Provider Social History Tobacco [...] in accordance with CLIA regulations, [employer] [place] [employer] (CAP) guidelines (May 25, 2019), and FDA guidance (May 06, 2019). This test is only for use under the Food and Drug Administration's Emergency Use Authorization. Swab ENTIRE NASOPHARYNX / Unknown 02/19/2020 16:30 EST 02/20/2020 16:09 EST Provider Outr Resulting Lab MICROBIOLOGY - GENERAL ORDERABLES [facility] [place], [place] * COVID-19 TESTING (02/19/2020 16:30 EST) COVID-19 [...] in accordance with CLIA regulations, [employer] [place] [employer] (CAP) guidelines (May 25, 2019), and FDA guidance (May 06, 2019). This test is only for use under the Food and Drug Administration's Emergency Use Authorization. Performing Lab [facility] 02/22/2020 23:41 EST [facility] Swab 02/19/2020 16:3 0 EST 02/20/2020 16:09 EST Provider Outr Resulting Lab MICROBIOLOGY - GENERAL ORDERABLES [facility] [address] [place] [address] [facility] [place], [place] documented in this encounter Visit Diagnoses Not on filedocumented in this encounter Care Teams Drosser Relationship Specialty Start Date End Date Lolly Oliveira MD [address] [place] [address] PCP - General 11/13/08 documented as of this encounter
--- OUTSIDE RECORDS SUMMARY | 2023-12-03 13:07 | XMS_ITS | Encounter Summary ---
Author Organization [facility] Address [facility] [place] [address] Care Team Providers Care Machining Associate Name Role Phone Lolly Oliveira MD Primary Care Provider [phone] Encounter Details Date Type Department Care Team (Late st Contact Info) Description 01/29/2023 Notes Only Cardiology at [address] [address] Merle Lin PA [facility] [place] [address] Social History Tobacco Use Types Packs/Day Years Used Date Smoking Tobacco: Never Alcohol Use Standard Drinks/Week Comments Not Currently 0 (1 standard drink = 0.6 oz pur e alcohol) [facility] Inpatient Questions Answer Date Recorded Does [...] pdf document Date of transmission: 01/29/2023 Device car supervisor: BSI Device type: RECREATIONAL COUNSELOR-D Presenting rhythm: /RVP/LVP AP 21% Right [employer] FACTORY WORKER 100% Left [employer] FACTORY WORKER: 100% Battery: 10.5 years HeartLogic Index rising in setting of increasing S3 intensity, increasing respiratory rate, increasing night heart rate, and increasing mean heart rate. MICKEY Villa 01/29/2023 9:06 AM documented in this encounter Plan of Treatment Upcoming Encounters Date Type Department Care Team (Late st Contact Info) Description 01/16/2024 10:00 AM EST Hospital Encounter Non-Invasive [place] [address] Arrived documented as of this encounter Visit Diagnoses Not on filedocumented in this encounter Care Teams Machining Associate Relationship Specialty Start Date End Date Lolly Oliveira MD [address] [place] [address] PCP - General 07/17/13 documented as of this encounter
--- OUTSIDE RECORDS SUMMARY | 2023-12-03 13:07 | XMS_ITS | Encounter Summary ---
Author Organization [facility] Address [address] [place] [address] Care Team Providers Care Pipe Finisher Name Role Phone Lolly Oliveira MD Primary Care Provider [phone] Encounter Details Date Type Department Care Team (Late st Contact Info) Description 11/13/2020 Lab Requisition [facility] Pathology & Laboratory Medicine - [address] [address] Outr Resulting Lab, Provider Social History Tobacco [...] Resulting Lab MICROBIOLOGY - GENERAL ORDERABLES [facility] [address] [place] [address] * COVID-19 TESTING (11/13/2020 7:30 EDT) COVID-19 rt-PCR Result Negative Negative 11/14/2020 11:46 EDT [facility] Comment: This test has [...] performed using the med SARS-CoV-2 assay ([employer] on the Med 6800 System Performing Lab Med [address] [facility] Lab 11/14/2020 11:46 EDT [facility] Swab 11/13/2020 7:30 EDT 11/13/2020 20:57 EDT Provider Outr Resulting Lab MICROBIOLOGY - GENERAL ORDERABLES [facility] [address] [place] [address] documented in this encounter Visit Diagnoses Not on filedocumented in this encounter Care Teams Pipe Finisher Relationship Specialty Start Date End Date Lolly Oliveira MD [address] [place] [address] PCP - General 11/13/08 documented as of this encounter
--- OUTSIDE RECORDS SUMMARY | 2023-12-03 13:07 | XMS_ITS | Referral Summary ---
Author Organization [facility] Address [address] [place] [address] Care Team Providers Care Face Hardener Name Role Phone Lolly Oliveira MD Primary Care Provider [phone] Social History Tobacco Use Types Packs/Day Years Used Date Smoking Tobacco: Never Assessed Sex and Gender Information Value Date Recorded Sex Assigned at Not on file Gender Identity Not on file Sexual Orientation Not on file Plan of Treatment Not on file Care Teams Face Hardener Relationship Specialty Start Date End Date Lolly Oliveira MD [address] [place] [address] PCP - General 11/13/08
--- OUTSIDE RECORDS SUMMARY | 2023-12-03 13:07 | XMS_ITS | Encounter Summary ---
Author Organization [facility] Address [facility] [place] [address] Care Team Providers Care Brake Lining Driller Name Role Phone Lolly Oliveira MD Primary Care Provider [phone] Encounter Details Date Type Department Care Team (Late st Contact Info) Description 05/03/2023 Telephone Cardiology at [address] [phone] Lalit Mcmahon MD [facility] [place] [address] Social History Tobacco Use Types Packs/Day Years [...] EST Hospital Encounter Non-Invasive [place] [address] Arrived documented as of this encounter Visit Diagnoses Not on filedocumented in this encounter Care Teams Brake Lining Driller Relationship Specialty Start Date End Date Lolly Oliveira MD [address] [place] [address] PCP - General 07/17/13 documented as of this encounter
--- OUTSIDE RECORDS SUMMARY | 2023-12-03 13:07 | XMS_ITS | Encounter Summary ---
Author Organization [facility] [place] [address] Care Team Providers Care Bindery Technician Name Role Phone Lolly Oliveira MD Primary Care Provider [phone] Encounter Details Date Type Department Care Team [...] AM EST Hospital Encounter Non[place] [address] Arrived documented as of this encounter Visit Diagnoses Not on filedocumented in this encounter Care Teams Bindery Technician Relationship Specialty Start Date End Date Lolly Oliveira MD [address] [place] [address] PCP - General 07/17/13 documented as of this encounter
--- OUTSIDE RECORDS SUMMARY | 2023-12-03 13:07 | XMS_ITS | Encounter Summary ---
Author Organization [facility] [place] [address] Care Team Providers Care Pre Parole Counseling Aide Name Role Phone Lolly Oliveira MD Primary Care Provider [phone] Encounter Details Date Type Department Care Team (Latest Contact Info) Description 07/20/2023 10:00 AM EDT - 07/20/2023 11:59 PM EDT Hospital Encounter [place] [address] Discharge Disposition: Home Social History Tobacco Use [...] with spacer fluticasone propionate (Flonase) 50 mcg/actuation [place], Suspension 1 spray by Each Nare route daily as needed. documented as of this encounter Plan of Treatment Upcoming Encounters Date Type Department Care Team (Late st Contact Info) Description 01/16/2024 10:00 AM [facility] Hospital Encounter [place] [address] Arrived documented as of this encounter Procedures [...] on filedocumented in this encounter Care Teams Pre Parole Counseling Aide Relationship Specialty Start Date End Date Lolly Oliveira MD [address] [place] [address] PCP - General 07/17/13 documented as of this encounter
--- OUTSIDE RECORDS SUMMARY | 2023-12-03 13:07 | XMS_ITS | Encounter Summary ---
Author Organization [facility] Address [address] [place] [address] Care Team Providers Care Well Control Instructor Name Role Phone Lolly Oliveira MD Primary Care Provider [phone] Encounter Details Date Type Department Care Team (Late st Contact Info) Description 04/12/2007 Results Only [facility] conversion [address] [place] [address] Lolly Oliveira MD [address] [place], [place] [id number] Social History Tobacco Use Types Packs/Day Years [...] ? JING ALVARENGA ? Accession #: ? [id number] : ? 1950 (Age: 56) ??F ?Collect Date: ? 04/12/2007 Location: ? [facility] ? Receive Date: ? 04/13/2007 Provider: ?LOLLY OLIVEIRA MD Copy to: ? Specimen/Source: ?ThinPrep Pap Test, Cervix/Endocervix, processed on [employer] ThinPrep Imaging System, with manual evaluation Last [...] Oliveira MD PATHOLOGY ORDERABLES [facility] [address] [place] [address] documented in this encounter Visit Diagnoses Not on filedocumented in this encounter Care Teams Well Control Instructor Relationship Specialty Start Date End Date Lolly Oliveira MD [address] [place] [address] PCP - General 11/13/08 documented as of this encounter
--- OUTSIDE RECORDS SUMMARY | 2023-12-03 13:07 | XMS_ITS | Encounter Summary ---
Author Organization [facility] [place] [address] Care Team Providers Care Farm Technician Name Role Phone Lolly Oliveira MD Primary Care Provider [phone] Reason for Visit * Reason Comments Follow-up 8 weeks UVB treatmen t twice weekly Encounter Details Date Type Department Care Team (Late st Contact Info) Description 07/19/2023 11:00 AM EDT Office Visit Dermatology at [address] [phone] Clay Ramírez MD [address], [facility] A DERMATOLOGY [place], [place] [id number] Psoriasis Social History Tobacco Use Types Packs/Day [...] [facility] En[facility] Non-[place] [address] Arrived documented as of this encounter Visit Diagnoses Diagnosis Psoriasis Other psoriasis documented in this encounter Care Teams Farm Technician Relationship Specialty Start Date End Date Lolly Oliveira MD [address] [place] [address] PCP - General 07/17/13 documented as of this encounter
--- OUTSIDE RECORDS SUMMARY | 2023-12-03 13:08 | XMS_ITS | Encounter Summary ---
Author Organization [facility] [place] [address] Care Team Providers Care Twisting Operator Name Role Phone Lolly Oliveira MD Primary Care Provider [phone] Encounter Details Date Type Department Care Team (Latest Contact Info) Description 07/20/2013 9:26 AM EDT - 07/20/2013 11:59 PM EDT Hospital [place] [address] CLINIC, Lolly So MD [address] [place], [place] [phone] Mammographic microcalcification Discharge Disposition: Home Social History [...] AM EST Hospital Encounter Non[place] [address] Arrived documented as of this encounter Procedures [...] does not layer and, therefore, are not shared services representative of milk of calcium. Again, [...] does not layer and, therefore, are not shared services representative of milk of calcium. Again, these have an amorphous andpunctate appearance and remain indeterminate. Stereotactic guided biopsy isrecommended. Alia Fraire MD IMG MAMMO ORDERABLES documented in this encounter Visit Diagnoses Diagnosis Mammographic microcalcification documented in this encounter Care Teams Twisting Operator Relationship Specialty Start Date End Date Lolly Oliveira MD [address] [place] [address] PCP - General 07/17/13 documented as of this encounter
--- OUTSIDE RECORDS SUMMARY | 2023-12-03 13:08 | XMS_ITS | Encounter Summary ---
Author Organization [facility] Address [facility] [address] Care Team Providers Care Candy Polisher Name Role Phone Lolly Oliveira MD Primary Care Provider [phone] Encounter Details Date Type Department Care Team (Late st Contact Info) Description 07/16/2022 Telephone Cardiology at [address] [phone] Lalit Mcmahon MD [facility] [place] [place] [address] Social History Tobacco Use Types Packs/Day Years [...] her nonischemic cardiomyopathy. She is scheduled for PLANT SUPERINTENDENT-D implantation next week and looks forward to the procedure. We will see each other next week. Lalit Mcmahon MD [facility] Cardiac Electrophysiology 07/16/2022 8:52 AM documented in this encounter Plan of Treatment Upcoming Encounters Date Type Department Care Team (Late st Contact Info) Description 01/16/2024 10:00 AM EST Hospital Encounter Non-[place] [address] Arrived documented as of this encounter Visit Diagnoses Not on filedocumented in this encounter Care Teams Candy Polisher Relationship Specialty Start Date End Date Lolly Oliveira MD [address] [place] [address] PCP - General 07/17/13 documented as of this encounter
--- OUTSIDE RECORDS SUMMARY | 2023-12-03 13:08 | XMS_ITS | Encounter Summary ---
Author Organization [facility] [place] [address] Care Team Providers Care Senior National Account Manager Name Role Phone Lloly Oliveira MD Primary Care Provider [phone] Encounter Details Date Type Department Care Team (Latest Contact Info) Description 07/17/2013 8:40 AM EDT - 07/17/2013 11:59 PM EDT Hospital Encounter XRay at [address] [place] [phone] CLINIC, DR [facility] Discharge Disposition: Home Social [...] AM EST Hospital Encounter Non-Invasive [place] [address] Arrived documented as of this encounter Visit Diagnoses Not on filedocumented in this encounter Care Teams Senior National Account Manager Relationship Specialty Start Date End Date Lolly Oliveira MD [address] [place] [address] PCP - General 07/17/13 documented as of this encounter
--- OUTSIDE RECORDS SUMMARY | 2023-12-03 13:08 | XMS_ITS | Encounter Summary ---
Author Organization [facility] [place] [address] Care Team Providers Care Sports Physiologist Name Role Phone Lolly Oliveira MD Primary Care Provider Reason for Referral * Consultation (Routine) - Closed Specialty Diagnoses / Procedures Referred By Contact Referred To Contact Electrophysiology / Cardiology Diagnoses Left bundle branch block Cardiomyopathy, unspecified type AT MINIMUM PT NEEDS CONSIDERATION FOR DEFIBRILLATOR, ALSO CANDIDATE FOR RESYNCHRONIZATION THERAPY HER QRS IS >0.16 Lolly Oliveira MD [address] [place] [address] [facility] [address] [place] [id number] Referral ID Status Reason Start Date Expiration Date V isits Requested Visits Authorized [id number] Closed Consult, Test & Treat PCP Updated and/or Approved 04/30/2022 04/30/2023 6 6 Encounter Details Date Type Department Care Team (Latest Contact Info) Description 04/30/2022 Transcribe Orders eDH Incoming Referrals [phone] Lolly Oliveira MD [address] [place], [place] [id number] Left bundle branch block; Cardiomyopathy, unspecified type [...] AM EST Hospital Encounter Non-Invasive [place] [address] Arrived Scheduled Referrals Name Type Priority Associated Diagnoses Orde r Schedule Referral to Cardiology Outpatient Referral Routine Left bundle branch block Cardiomyopathy, Unspecified Type Ordered: 04/30/2022 documented as of this encounter Visit Diagnoses Diagnosis Left bundle branch block Other left bundle branch block Cardiomyopathy, unspecified type documented in this encounter Care Teams Sports Physiologist Relationship Specialty Start Date End Date Lolly Oliveira MD [address] [place] [address] PCP - General 07/17/13 documented as of this encounter
--- OUTSIDE RECORDS SUMMARY | 2023-12-03 13:08 | XMS_ITS | Encounter Summary ---
Author Organization [facility] [place] [address] Care Team Providers Care Commercial Attache Name Role Phone Lolly Oliveira MD Primary Care Provider [phone] Reason for Referral * Diagnostic Test (Routine) - Closed Specialty Diagnoses / Procedures Referred By Contac t Referred To Contact Radiology Diagnoses Left bundle branch block Nonischemic cardiomyopathy Procedures MRI Cardiac Morphology Function With Flow Velocity Quantification wwo Contrast MRI Cardiac Morphology Function wwo Contrast Lalit Mcmahon MD [facility] [place] [address] [place] [address] Referral ID Status Reason Start Date Expiration Date V isits Requested Visits Authorized [id number] Closed Specialty Service Requested 05/06/2022 11/07/2023 2 1 Encounter Details Date Type Department Care Team (Late st Contact Info) Description 05/06/2022 Orders Only Cardiology at [address] [address] Lalit Mcmahon MD [facility] [place] [address] Left bundle branch block; Nonischemic cardiomyopathy Social [...] AM EST Hospital Encounter [place] [address] Arrived documented as of this encounter Results [...] have questions please contact the health healthcare social worker that requested your imaging first. [...] who have questions please contactthe health healthcare social worker that requested your imaging first. Lalit Mcmahon MD IMG MRI ORDERABLES documented in this encounter Visit Diagnoses Diagnosis Left bundle branch block Other left bundle branch block Nonischemic cardiomyopathy Other primary cardiomyopathies Left bundle branch block Other left bundle branch block Nonischemic cardiomyopathy Other primary cardiomyopathies documented in this encounter Care Teams Commercial Attache Relationship Specialty Start Date End Date Lolly Oliveira MD [address] [place] [address] PCP - General 07/17/13 documented as of this encounter
--- OUTSIDE RECORDS SUMMARY | 2023-12-03 13:08 | XMS_ITS | Encounter Summary ---
Author Organization [facility] [place] [address] Care Team Providers Care Research Support Specialist Name Role Phone Lolly Oliveira MD Primary Care Provider [phone] Encounter Details Date Type Department Care Team (Latest Contact Info) Description 07/26/2013 9:44 AM EDT - 07/26/2013 11:59 PM EDT Hospital En[place] [address] CLINIC, Lolly So MD [address] [place], [place] [id number] Mammographic microcalcification Discharge Disposition: Home Social History [...] Encounter Non-[place] [address] Arrived documented as of this encounter Procedures [...] are present on specimen digital X-ray. A [employer] App-Stereo 13 Cylinder marker clip was placed. Cranio-caudal [...] mLs documented in this encounter Care Teams Research Support Specialist Relationship Specialty Start Date End Date Lolly Oliveira MD [address] [place] [address] PCP - General 07/17/13 documented as of this encounter
--- OUTSIDE RECORDS SUMMARY | 2023-12-03 13:08 | XMS_ITS | Encounter Summary ---
Author Organization [facility] [place] [address] Care Team Providers Care Blade Grinder Name Role Phone Lolly Oliveira MD Primary Care Provider [phone] Reason for Visit * Reason Comments Skin Check Encounter Details Date Type Department Care Team (Late st Contact Info) Description 11/23/2014 10:00 AM EDT Office Visit Dermatology at [address] [address] Clay Ramírez MD [address] [facility], [place] [address] Dermatofibroma; Nevus; Solar lentigo Discharge Disposition: Home [...] MEDICAL CENTER Hospital Encounter Non-[place] [address] Arrived documented as of this encounter Visit Diagnoses Diagnosis Dermatofibroma Benign neoplasm of skin, site unspecified Nevus Benign neoplasm of skin, site unspecified Solar lentigo Other dyschromia documented in this encounter Care Teams Blade Grinder Relationship Specialty Start Date End Date Lolly Oliveira MD [address] [place] [address] PCP - General 07/17/13 documented as of this encounter
--- OUTSIDE RECORDS SUMMARY | 2023-12-03 13:08 | XMS_ITS | Encounter Summary ---
Author Organization Count Includes [facility] [address] Care Team Providers Care Grinder Needle Tip Name Role Phone Lolly Oliveira MD Primary Care Provider [phone] Reason for Visit * Reason Comments Follow-up Encounter Details Date Type Department Care Team (Late st Contact Info) Description 07/02/2022 8:00 AM EDT Office Visit Dermatology at [address] [phone] Clay Ramírez MD [address] [facility], [place] [address] Psoriasis, guttate Social History Tobacco Use Types Packs/Day Years Used Date Smoking Tobacco: Never Sex and Gender Information Value Date Recorded Sex Assigned at Not on file Gender Identity Not on file Sexual Orientation Not on file documented as of this encounter Progress Notes * Clay Ramírez MD - 07/02/2022 8:00 AM EDT 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
--- OUTSIDE RECORDS SUMMARY | 2023-12-03 13:08 | XMS_ITS | Encounter Summary ---
[place] [address] Care Team Providers Care Vending Machine Refiller Name Role Phone Lolly Oliveira MD Primary Care Provider [phone] Encounter Details Date Type Department Care Team [...] AM EST Hospital Encounter Non-Invasive [place] [address] Arrived documented as of this encounter Visit Diagnoses Not on filedocumented in this encounter Care Teams Vending Machine Refiller Relationship Specialty Start Date End Date Lolly Oliveira MD [address] [place] [address] PCP - General 07/17/13 documented as of this encounter
--- OUTSIDE RECORDS SUMMARY | 2023-12-03 13:08 | XMS_ITS | Encounter Summary ---
[place] [address] Care Team Providers Care Upstairs Maid Name Role Phone Lolly Oliveira MD Primary Care Provider [phone] Encounter Details Date Type Department Care Team [...] Encounter Non-Invasive [place] [address] Arrived documented as of this encounter Visit Diagnoses Not on filedocumented in this encounter Care Teams Upstairs Maid Relationship Specialty Start Date End Date Lolly Oliveira MD [address] [place] [address] PCP - General 07/17/13 documented as of this encounter
--- OUTSIDE RECORDS SUMMARY | 2023-12-03 13:08 | XMS_ITS | Encounter Summary ---
Author Organization Formerly [facility] [place] [address] Care Team Providers Care National Van Owner Operator Name Role Phone Lolly Oliveira MD Primary Care Provider [phone] Encounter Details Date Type Department Care Team (Latest Contact Info) Description 07/18/2013 [place] [phone] Alia Fraire MD [facility] [place] [address] Mammographic microcalcification (Primary Dx) Social History Tobacco [...] AM EST Hospital Encounter Non-Invasive [place] [address] Arrived documented as of this encounter Results [...] are present on specimen digital X-ray. A Sparkrk Eviva-Stereo 13 Cylinder marker clip was placed. [...] one year. As discussed with Ms. Jorje Chrisitan on 07/28/13. I performed the procedure without [...] calcifications are present on specimendigital X-ray. A Sparkrk Eviva-Stereo 13 Cylinder marker clip was placed. [...] does not layer and, therefore, are not appliance service representative of milk of calcium. Again, [...] does not layer and, therefore, are not appliance service representative of milk of calcium. Again, these have an amorphous andpunctate appearance and remain indeterminate. Stereotactic guided biopsy isrecommended. Alia Fraire MD IMG MAMMO ORDERABLES documented in this encounter Visit Diagnoses Diagnosis Mammographic microcalcification- Primary Mammographic microcalcification Mammographic microcalcification Mammographic microcalcification Mammographic microcalcification documented in this encounter Care Teams National Van Owner Operator Relationship Specialty Start Date End Date Lolly Oliveira MD [address] [place] [address] PCP - General 07/17/13 documented as of this encounter
--- OUTSIDE RECORDS SUMMARY | 2023-12-03 13:08 | XMS_ITS | Encounter Summary ---
Author Organization [facility] [place] [address] Care Team Providers Care Thrasher Feeder Name Role Phone Lolly Oliveira MD Primary Care Provider [phone] Encounter Details Date Type Department Care Team (Late st Contact Info) Description 06/29/2011 [place] [phone] Eleno Christian MD [facility] [place] [address] Social History Tobacco Use Types Packs/Day Years [...] AM EST Hospital Encounter Non[place] [address] Arrived documented as of this encounter Procedures [...] is a Non-reportable exam Eleno Christian MD [facility] FILM LIBRARY ORD ERABLES documented in this encounter Visit Diagnoses Not on filedocumented in this encounter Care Teams Thrasher Feeder Relationship Specialty Start Date End Date Lolly Oliveira MD [address] [place] [address] PCP - General 07/17/13 documented as of this encounter
--- OUTSIDE RECORDS SUMMARY | 2023-12-03 13:08 | XMS_ITS | Encounter Summary ---
Author Organization [facility] [place] [address] Care Team Providers Care Trench Digger Name Role Phone Unavailable Primary Care Provider Unavailabl e Encounter Details Date Type Department Care Team (Late st Contact Info) Description 07/14/2013 External Results XRay at [address] [place] [address] Provider, Scanning Social History Tobacco Use Types [...] EST Hospital Encounter Non-Invasive Cardiology Lab [facility] [place] [address] Arrived documented as of this encounter Procedures [...]
--- OUTSIDE RECORDS SUMMARY | 2023-12-03 13:08 | XMS_ITS | Encounter Summary ---
[place] [address] Care Team Providers Care Medical Secretary Receptionist Name Role Phone Lolly Oliveira MD Primary Care Provider [phone] Encounter Details Date Type Department Care Team [...] AM EST Hospital Encounter Non-[place] [phone] Arrived documented as of this encounter Visit Diagnoses Not on filedocumented in this encounter Care Teams Medical Secretary Receptionist Relationship Specialty Start Date End Date Lolly Oliveira MD [address] [place] [address] PCP - General 07/17/13 documented as of this encounter
--- OUTSIDE RECORDS SUMMARY | 2023-12-03 13:08 | XMS_ITS | Encounter Summary ---
Author Organization [facility] [place] [address] Care Team Providers Care Fellmongering Machine Operator Name Role Phone Lolly Oliveira MD Primary Care Provider [phone] Encounter Details Date Type Department Care Team (Late st Contact Info) Description 07/26/2013 [place] [phone] Eleno Christian MD [facility] [place] [address] Social History Tobacco Use Types Packs/Day Years [...] AM EST Hospital Encounter Non-[place] [address] Arrived documented as of this encounter Visit Diagnoses Not on filedocumented in this encounter Care Teams Fellmongering Machine Operator Relationship Specialty Start Date End Date Lolly Oliveira MD [address] [place] [address] PCP - General 07/17/13 documented as of this encounter
--- OUTSIDE RECORDS SUMMARY | 2023-12-03 13:08 | XMS_ITS | Encounter Summary ---
Author Organization [facility] [place] [address] Care Team Providers Care Rotogravure Press Operator Name Role Phone Lolly Oliveira MD Primary Care Provider [phone] Reason for Visit * Reason Comments Follow-up Encounter Details Date Type Department Care Team (Late st Contact Info) Description 06/06/2021 8:45 AM EDT Office Visit Dermatology at [address] [address] lCay Ramírez MD [address] [facility] [place] [address] Psoriasis, guttate Social History Tobacco Use Types [...] [facility] En[facility] Non-Invasive [place] [address] Arrived documented as of this encounter Visit Diagnoses Diagnosis Psoriasis, guttate Other psoriasis documented in this encounter Care Teams Rotogravure Press Operator Relationship Specialty Start Date End Date Lolly Oliveira MD [address] [place] [address] PCP - General 07/17/13 documented as of this encounter
--- OUTSIDE RECORDS SUMMARY | 2023-12-03 13:08 | XMS_ITS | Encounter Summary ---
Author Organization [facility] [place] [address] Care Team Providers Care Magneto Electrician Name Role Phone Lolly Oliveira MD Primary Care Provider [phone] Reason for Visit * Reason Comments Follow-up Encounter Details Date Type Department Care Team (Late st Contact Info) Description 05/21/2022 8:00 AM EDT Office Visit Dermatology at [address] [phone] Clay Ramírez MD [address] [facility] [place] [address] Psoriasis, guttate Social History Tobacco Use Types [...] [facility] En[facility] Non-Invasive [place] [address] Arrived documented as of this encounter Visit Diagnoses Diagnosis Psoriasis, guttate Other psoriasis documented in this encounter Care Teams Magneto Electrician Relationship Specialty Start Date End Date Lolly Oliveira MD [address] [place] [address] PCP - General 07/17/13 documented as of this encounter
--- OUTSIDE RECORDS SUMMARY | 2023-12-03 13:08 | XMS_ITS | Encounter Summary ---
Author Organization [facility] [place] [address] Care Team Providers Care Pickling Solution Maker Name Role Phone Lolly Oliveira MD Primary Care Provider [phone] Reason for Visit * Reason Comments Psoriasis Encounter Details Date Type Department Care Team (Late st Contact Info) Description 04/09/2022 1:45 PM EST Office Visit Dermatology at [address] [address] Clay Ramírez MD [address] [facility] [place] [address] Psoriasis, guttate Social History Tobacco Use Types [...] AM EST Hospital Encounter Non-Invasive [place] [address] Arrived documented as of this encounter Visit Diagnoses Diagnosis Psoriasis, guttate Other psoriasis documented in this encounter Care Teams Pickling Solution Maker Relationship Specialty Start Date End Date Lolly Oliveira MD [address] [place] [address] PCP - General 07/17/13 documented as of this encounter
--- OUTSIDE RECORDS SUMMARY | 2023-12-03 13:08 | XMS_ITS | Encounter Summary ---
Author Organization [facility] [place] [address] Care Team Providers Care Solar Thermal Installer Name Role Phone Lolly Oliveira MD Primary Care Provider [phone] Reason for Visit * Reason Onset Date Comments Post Procedure Call 07/30/2022 Encounter Details Date Type Department Care Team (Late st Contact Info) Description 07/30/2022 Notes Only Cardiology at [address] [phone] Rosenda Sutton, RN Post Procedure Call Social History Tobacco Use Types Packs/Day Years Used Date Smoking Tobacco: Never Alcohol Use Standard Drinks/Week Comments Not Currently 0 (1 standard drink = 0.6 oz pur e alcohol) COUNTS INCLUDE [facility] BEDS AT [facility] Inpatient Questions Answer Date [...] 07/30/2022 9:59 AM EDTSummary: Post Procedure Call: AUDIO PRODUCTION INSTRUCTOR implant EP RN Post-Procedure Note: Date of Follow Up Call: 07/30/2022 Spoke With: Patient Procedure Type (choose all that apply): ICD Performing MIRLANDE Mcmahon Date of Procedure: 07/23/2022 Date of Discharge: 07/24/2022 Follow Up EP Visit Scheduled?: No No Follow Up Visit Reason: Follow up outside Outside Location: [facility] Date of Non EP Visit: 08/12/2022 [...] Note: Follow-up Recommendations for Providers: - s/p AUDIO PRODUCTION INSTRUCTOR-D implant - post implant QRS 130 ms - reviewed post-implant instructions - no medication changes - Follow up in device clinic for wound/device check in ~10 days??([facility]) Wound Care: -Wound will heal in [...] [facility] Encounter Non-Invasive [place] [address] Arrived documented as of this encounter Visit Diagnoses Not on filedocumented in this encounter Care Teams Solar Thermal Installer Relationship Specialty Start Date End Date Lolly Oliveira MD [address] [place] [address] PCP - General 07/17/13 documented as of this encounter
--- OUTSIDE RECORDS SUMMARY | 2023-12-03 13:08 | XMS_ITS | Encounter Summary ---
Author Organization [facility] [place] [address] Care Team Providers Care Jumpbasting Canvas Baster Name Role Phone Lolly Oliveira MD Primary Care Provider [phone] Encounter Details Date Type Department Care Team (Late st Contact Info) Description 10/09/2021 Telephone Dermatology at [address] [address] Nora Meredith LPN Social History [facility] Non-[place] [address] Arrived documented as of this encounter Visit Diagnoses Not on filedocumented in this encounter Care Teams Jumpbasting Canvas Baster Relationship Specialty Start Date End Date Lolly Oliveira MD [address] [place] [address] PCP - General 07/17/13 documented as of this encounter
--- OUTSIDE RECORDS SUMMARY | 2023-12-03 13:08 | XMS_ITS | Encounter Summary ---
Author Organization [place] [address] Care Team Providers Care Waste Cotton Cleaner Name Role Phone Unavailable Primary Care Provider Unavailabl e Encounter Details Date Type Department Care Team (Late st Contact Info) Description 07/14/2013 [place] [phone] Eleno Christian MD [facility] [place] [address] Social History Tobacco Use Types Packs/Day Years [...] AM EST Hospital Encounter Non-Invasive [place] [address] Arrived documented as of this encounter Visit Diagnoses Not on filedocumented in this encounter
--- OUTSIDE RECORDS SUMMARY | 2023-12-03 13:08 | XMS_ITS | Encounter Summary ---
Author Organization [facility] [place] [address] Care Team Providers Care Heating Technician Name Role Phone Lolly Oliveira MD Primary Care Provider [phone] Encounter Details Date Type Department Care Team (Latest Contact Info) Description 10/23/2022 10:00 AM EDT - 10/23/2022 11:59 PM EDT Hospital Encounter Non-[place] [address] Discharge Disposition: Home Social History Tobacco Use [...] with spacer fluticasone propionate (Flonase) 50 mcg/actuation [place], Suspension 1 spray by Each Nare route [...] [facility] Hospital Encounter Non-[place] [address] Arrived documented as of this [...] on filedocumented in this encounter Care Teams Heating Technician Relationship Specialty Start Date End Date Lolly Oliveira MD [address] [place] [address] PCP - General 07/17/13 documented as of this encounter
--- OUTSIDE RECORDS SUMMARY | 2023-12-03 13:08 | XMS_ITS | Encounter Summary ---
[place] [address] Care Team Providers Care Retort Unloader Name Role Phone Lolly Oliveira MD Primary Care Provider [phone] Encounter Details Date Type Department Care Team (Late st Contact Info) Description 04/09/2022 Refill Dermatology at [address] [address] Nora Meredith, SUPERINTENDENT RECREATION Social History Tobacco Use Types Packs/Day Years [...] [facility] Hospital Encounter Non-In[place] [address] Arrived documented as of this encounter Visit Diagnoses Not on filedocumented in this encounter Care Teams Retort Unloader Relationship Specialty Start Date End Date Lolly Oliveira MD [address] [place] [address] PCP - General 07/17/13 documented as of this encounter
--- OUTSIDE RECORDS SUMMARY | 2023-12-03 13:08 | XMS_ITS | Encounter Summary ---
[place] [address] Care Team Providers Care Helicopter Pilot Name Role Phone Lolly Oliveira MD Primary Care Provider [phone] Encounter Details Date Type Department Care Team (Latest Contact Info) Description 07/26/2013 9:45 AM EDT - 07/26/2013 11:59 PM EDT Hospital Encounter [place] [address] Mammographic microcalcification Social History Tobacco Use Types [...] AM EST Hospital Encounter [place] [address] Arrived documented as of this encounter Procedures Procedure Name Priority Date/Time Associated Diagnosis Comments SURGICAL PATHOLOGY REPORT Routine 07/26/2013 12:12 PM EDT MAMMO SPECIMEN IMAGING DURING BIOPSY Routine 07/26/2013 11:58 AM EDT Mammographic microcalcification documented in this encounter Results * Surgical Pathology Report (07/26/2013 12:12 PM EDT) Final Diagnosis ? [facility] ? Provider: ?? ELENO CHRISTIAN ?? Pt. Name: ?? JING ALVARENGA ? Acc #: ?[id number] ?Pt. ? Col Date: ?? 07/26/2013 ? [...] Partially fragmented, fibrofatty needle core biopsies. ? [facility] ? Provider: ?? ELENO CHRISTIAN ?? Pt. Name: ?? JING ALVARENGA ? Acc #: ?[id number] ?Pt. ? Col Date: ?? 07/26/2013 ? [...] FCD, adenosis, DCIS 07/28/2013 8:29 AM EDT [facility] BREAST STRUCTURE / Unknown 07/26/2013 12:12 PM EDT 07/26/2013 12:12 PM EDT Eleno Christian MD PATHOLOGY/CYTOLOGY O RDERABLES Performing Organization Address City/State/[facility] Phone Number [facility] [place] [address] * Mammo Specimen Imaging During Biopsy (07/26/2013 [...] microcalcification documented in this encounter Care Teams Helicopter Pilot Relationship Specialty Start Date End Date Lolly Oliveira MD [address] [place] [address] PCP - General 07/17/13 documented as of this encounter
--- OUTSIDE RECORDS SUMMARY | 2023-12-03 13:08 | XMS_ITS | Encounter Summary ---
Author Organization [facility] Address [facility] [place] [address] Care Team Providers Care Cost Clerk Name Role Phone Lolly Oliveira MD Primary Care Provider [phone] Encounter Details Date Type Department Care Team (Late st Contact Info) Description 11/11/2022 Orders Only Cardiology at [address] [phone] Lalit Mcmahon MD [facility] [place] [address] Nonischemic cardiomyopathy Social History Tobacco Use Types [...] [facility] Hospital Encounter Non-Invasive [place] [address] Arrived documented as of this encounter Visit Diagnoses Diagnosis Nonischemic cardiomyopathy Other primary cardiomyopathies documented in this encounter Care Teams Cost Clerk Relationship Specialty Start Date End Date Berrian, Lolly M, MD [address] [place] [address] PCP - General 07/17/13 documented as of this encounter
--- OUTSIDE RECORDS SUMMARY | 2023-12-03 13:08 | XMS_ITS | Encounter Summary ---
Author Organization [place] [address] Care Team Providers Care Aboriginal Liaison Officer Name Role Phone Lolly Oliveira MD Primary Care Provider [phone] Encounter Details Date Type Department Care Team (Late Contact Info) Description 01/14/2022 Telephone Dermatology at [address] [address] Nora Meredith LPN Social History [...] AM EST Hospital Encounter Non-Invasive [place] [address] Arrived documented as of this encounter Visit Diagnoses Not on filedocumented in this encounter Care Teams Aboriginal Liaison Officer Relationship Specialty Start Date End Date Lolly Oliveira MD [address] [place] [address] PCP - General 07/17/13 documented as of this encounter
--- OUTSIDE RECORDS SUMMARY | 2023-12-03 13:08 | XMS_ITS | Encounter Summary ---
Author Organization [facility] [place] [address] Care Team Providers Care Radio Frequency Technician Name Role Phone Lolly Oliveira MD Primary Care Provider [phone] Reason for Visit * Reason Onset Date Comments Pre Procedure Call 07/01/2022 Encounter Details Date Type Department Care Team (Late st Contact Info) Description 07/01/2022 Telephone Cardiology at [address] [phone] Rosenda Sutton RN Pre Procedure Call Social History Tobacco Use Types Packs/Day Years Used Date Smoking Tobacco: Never Sex and Gender Information Value Date Recorded Sex Assigned at Not on file Gender Identity Not on file Sexual Orientation Not on file documented as of this encounter Miscellaneous Notes * Telephone Encounter - Rosenda Sutton RN - 07/01/2022 9:30 AM EDTSummary: Pre Procedure Call: ELECTRIC RAZOR MECHANIC implant EP SECONDARY SET UP MAN COORDINATION CHECKLIST Patient Name: Luna Mott Patient Performing Channel Marketing Specialist: Lalit Mcmahon Referring Provider: Lolly Oliveira Date of Procedure: 07/23/22 Arrival Time/ Case Time: 12:00 pm / 1:00 pm Check In Location: [facility] Desk 4W Date Patient was Called: 07/01/22 Procedure: ELECTRIC RAZOR MECHANIC Company: [employer] Type: ELECTRIC RAZOR MECHANIC-D Laterality: LEFT Orders: Yes Lab Orders: Yes [...] overnight , understands that they will need p d driver on day of discharge Notified pt that Goff catheter may be placed on day of procedure depending on type & duration of case. documented in this encounter Plan of Treatment Upcoming Encounters Date Type Department Care Team (Late st Contact Info) Description 01/16/2024 10:00 AM [facility] Hospital Encounter Non-Invasive [place] [address] Arrived documented as of this encounter Visit Diagnoses Not on filedocumented in this encounter Care Teams Radio Frequency Technician Relationship Specialty Start Date End Date Lolly Oliveira MD [address] [place] [address] PCP - General 07/17/13 documented as of this encounter
--- OUTSIDE RECORDS SUMMARY | 2023-12-03 13:08 | XMS_ITS | Encounter Summary ---
Author Organization [facility] [place] [address] Care Team Providers Care Taper Operator Name Role Phone Lolly Oliveira MD Primary Care Provider [phone] Reason for Visit * Reason Onset Date Comments Other 07/24/2022 Implanted Cardia c Device Teaching/Education Encounter Details Date Type Department Care Team (Late st Contact Info) Description 07/24/2022 Notes Only Cardiology at [address] [phone] Letha Arroyo Other (Implanted Cardiac Device Teaching/Education) Social History Tobacco Use Types Packs/Day Years Used Date Smoking Tobacco: Never Alcohol Use Standard Drinks/Week Comments Not Currently 0 (1 standard drink = 0.6 oz pur e alcohol) [facility] Inpatient Questions Answer Date Recorded [...] to call the Cardiac Device Clinic at [phone] with any questions. Plan: Post op check: [...] [facility] Hospital Encounter Non-[place] [address] Arrived documented as of this encounter Visit Diagnoses Not on filedocumented in this encounter Care Teams Taper Operator Relationship Specialty Start Date End Date Lolly Oliveira MD [address] [place] [address] PCP - General 07/17/13 documented as of this encounter
--- OUTSIDE RECORDS SUMMARY | 2023-12-03 13:08 | XMS_ITS | Encounter Summary ---
Author Organization [facility] Address [place] [address] Care Team Providers Care Shingle Trimmer Name Role Phone Lolly Oliveira MD Primary Care Provider [phone] Reason for Visit * Auth/Cert (Routine) Specialty Diagnoses / Procedures Referred By Contac t Referred To Contact Diagnoses Left bundle-branch block, unspecified Other cardiomyopathies Left bundle branch block [I44.7]Nonischemic cardiomyopathy [I42.8] Procedures PRG CATH PLMT LEFT HEART CATH & ARTS W/INJ & ANGIO IMG S&I ELECTROPHYSIOLOGY PROCEDURE Lalit Mcmahon MD [facility] [place] [address] [facility] Referral ID Status Reason Start Date Expiration Date Visits Re quested Visits Authorized [id number] 1 1 Encounter Details Date Type Department Care Team (Latest Contact Info) Description 07/23/2022 11:39 AM EDT - 07/24/2022 10:23 AM EDT Hospital [place] [phone] Lalit Mcmahon MD [facility] [place] [address] Left bundle branch block; Nonischemic cardiomyopathy; Cardiac resynchronization therapy defibrillator (ETL ANALYST DEVELOPER-D) in place Discharge Disposition: Home Social History [...] Luna Mott Patient Age: 71 y.o. Language: Kosovan Race: White Ethnicity: Not nor Admit date: 07/23/2022 Discharge date and time: 07/24/22 Attending Physician: Lalit Mcmahon MD Discharge Physician: Lalit Mcmahon MD Follow-up Recommendations for Providers: - s/p ETL ANALYST DEVELOPER-D implant - post implant QRS 130 ms [...] Nevus ??? Solar lentigo Operations/Major Procedures: 07/23/22: [facility] ETL ANALYST DEVELOPER-D implant History of Presentation: 71 y.o. female with a history of HFrEF, LBBB, QRS >150, NYHA II who is POD#1 of ETL ANALYST DEVELOPER-D implant (Friend[employer]). Hospital Course: Elective admission for ETL ANALYST DEVELOPER-D implant Admitted post-implant for pain management, telemetry [...] (heart failure with reduced ejection fraction) [I50.20] ETL ANALYST DEVELOPER-D implant Admission Condition: good Indication for Admission: [...] g Refills: 3 fluticasone propionate 50 mcg/actuation [place], Suspension Commonly known as: Flonase 1 spray [...] to use a cloth finishing range operator chief (such as a towel) [...] F. The office scheduling phone number is [phone]. ARM MOVEMENT RESTRICTIONS POST-IMPLANT - Do not [...] please call the Cardiac ElectrophysiologyTriage Nurse at [phone], option 3. General Instructions None Discharge References/Attachments [...] to use a cloth finishing range operator chief (such as a towel) [...] F. The office scheduling phone number is [phone]. ARM MOVEMENT RESTRICTIONS POST-IMPLANT - Do not [...] please call the Cardiac ElectrophysiologyTriage Nurse at [phone], option 3. documented in this encounter Medications [...] with spacer fluticasone propionate (Flonase) 50 mcg/actuation [place], Suspension 1 spray by Each Nare route [...] Cardiac Electrophysiology Post-Implant Device Interrogation Luna Mott [id number] 07/24/2022 History: Luna Mott is a 71 y.o. female with a history of HFrEF, LBBB, QRS >150, NYHA II who is POD#1 of ETL ANALYST DEVELOPER-D implant (Friend[employer]). Overall feels well this morning. Ready [...] WOB Neuro- A&Ox3 Device Interrogation: Data ?? Impregnating Tank Operator Model # Serial # Generator [employer] [id number] Atrial Lead [employer] [id number] RV Lead [employer] [id number] [id number] LV Lead [employer] [id number] ?? Diagnostics Pacing Mode: DDD 60-130 Underlying Rhythm: [place] Atrial Episodes: None Ventricular Episodes: None FINAL PROGRAMMING: Pacing: Mode Lower rate (ppm) Upper rate (ppm) ?? DDD 60 130 VF: Rate (bpm) #Antitachycardia pacing First shock energy (J) ?? 200 Quick convert 41 VT: 170 Monitor only Monitor only ? Battery and Leads Impedances (ohms) Sensing (mV) Thresholds HV RA RV LV RA RV LV RA RV LV 73 [phone] (LVa) 7.7 13.1 >25 0.4V @ 0.4 ms 0.4V @ 0.4 ms 0.5 V @ 1.0 ms POD#1 CXR: All leads in nominal positioning Impression: 71 y.o. female who is s/p ETL ANALYST DEVELOPER-D implant for LBBB, NYHA II, HFrEF. - [...] [facility]) Fadi Nunez MD 07/24/2022 Pager: [phone] I met with the patient today and [...] agreement. ? Dr. Lalit Mcmahon, electrophysiology attending ([id number]) * Zaria Wright RN - 07/23/2022 8:28 [...] HF, QRS > 150 ms presents for ETL ANALYST DEVELOPER-D placement. ROS: Denies recent fevers or chills [...] 0.9) flush 5 mL 5 mL Intravenous [id number] ramos MD ??? sodium chloride 0.9 % [...] HF, QRS > 150 ms presents for ETL ANALYST DEVELOPER-D placement. Backup would be LBBAP lead. Antibiotics: cefazolin Rationales for, intended benefits and potential risk of planned procedures reviewed. The patient indicated understanding and agreement with the plan. Informed consent signed. Procedure checklist completed. Fadi Nunez MD Cardiac Electrophysiology Fellow [facility] Pager [phone] 07/23/2022 I met with the patient today [...] agreement. ? Dr. Lalit Mcmahon, electrophysiology attending ([id number]) documented in this encounter Miscellaneous Notes * Brief Op Note - Lalit Mcmahon MD - 07/23/2022 4:04 PM EDT Brief Operative Note Patient Name: Luna Mott : [id number] MR#: [id number] Case Date: 07/23/2022 Surgeon: Surgeon(s) and Role: [...] AM EST Hospital Encounter Non-Invasive [place] [address] Arrived Scheduled Orders Name Type Priority Associated Diagnoses Orde r Schedule EKG 12 Lead ECG Routine Cardiac resynchronization therapy defibrillator (ETL ANALYST DEVELOPER-D) in place One Time for 1 Occurrences [...] (Bezet) 522 ms MUSE SYSTEM Calculated R [place] 78 degrees MUSE SYSTEM Calculated T [place] -71 degrees MUSE SYSTEM INTERPRETATION AV dual-paced [...] who have questions please contact the health attending ambulatory care that requested your imaging first. ? [...] patients who have questions please contactthe health attending ambulatory care that requested your imaging first. Lalit Mcmahon MD IMG DX ORDERABLES * ELECTROPHYSIOLOGY PROCEDURE (07/23/2022 1:11 PM EDT) Anatomical Region Laterality Modality Other Narrative 07/23/2022 4:24 PM EDT Table formatting from the original result was not included. BIVENTRICULAR ICD IMPLANTATION Type Mapper: Lalit Mcmahon MD Fellow: Fadi Nunez MD [...] lateral branch of the CS in the ARMENIAN view. This branch was cannulated with a [...] the entire procedure. LEAD AND GENERATOR DATA: Impregnating Tank Operator Model # Serial # Generator [employer] [id number] Atrial Lead [employer] [id number] [id number] RV Lead [employer] 0672 [id number] LV Lead [employer] [id number] PACE/SENSE DATA: Sensed wave (mV) Threshold (V) [...] (cGycm2) 300 CONCLUSIONS: Successful implantation of a [employer] biventricular ICD for primary prevention and treatment of symptoms related to congestive heart failure. Follow up in EP clinic in 1-2 months. Procedures performed: new ICD system ( cpt 90936-J0); implant LV lead at time of ICD insertion (cpt 69626) I have read, edited and approve of this report: Lalit Mcmahon MD S Cardiac Electrophysiology 07/23/2022 4:22 PM Procedure Note Lalit Mcmahon MD - 07/23/2022 BIVENTRICULAR ICD IMPLANTATION Type Mapper: Lalit Mcmahon MD Fellow: Fadi Nunez MD [...] appropriate lateralbranch of the CS in the ARMENIAN view. This branch was cannulated with a [...] in the entireprocedure. LEAD AND GENERATOR DATA: Impregnating Tank Operator Model # Serial # Generator [employer] [id number] Atrial Lead [employer] [id number] [id number] RV Lead [employer] 0672 [id number] LV Lead [employer] [id number] PACE/SENSE DATA: Sensed wave (mV) Threshold (V) [...] (cGycm2) 300 CONCLUSIONS: Successful implantation of a [employer] biventricular ICD forprimary prevention and treatment of symptoms related to congestive heartfailure. Follow up in EP clinic in 1-2 months. Procedures performed: new ICD system ( cpt 93721-F7); implant LV lead attime of ICD insertion (cpt 39215) I have read, edited and approve of this report: Lalit Mcmahon MD [facility] Cardiac Electrophysiology 07/23/2022 4:22 PM Lalit Mcmahon MD EP PROCEDURE ORDERAB LES * POCT Glucose (07/23/2022 12:54 PM EDT) Glucose, POC 83 65 - 199 mg/dL [facility] Comment: Supplemental ranges: <140 mg/dL before meals <180 mg/dL all other times of the day Blood 07/23/2022 12:5 4 PM EDT 07/23/2022 12:54 PM EDT Lalit Mcmahon MD POINT OF CARE TEST O RDERABLES Performing Organization Address [facility] Co de Phone Number [facility] [place] [address] * EKG 12 Lead (07/23/2022 12:33 PM EDT) Ventricular rate 72 BPM MUSE SYSTEM Atrial Rate 72 BPM MUSE SYSTEM P-R Interval 158 ms MUSE SYSTEM QRS Duration 176 ms MUSE SYSTEM Q-T Interval 458 ms MUSE SYSTEM QTC Calculated (Bezet) 501 ms MUSE SYSTEM Calculated P [place] 34 degrees MUSE SYSTEM Calculated R [place] 12 degrees MUSE SYSTEM Calculated T [place] -173 degrees MUSE SYSTEM INTERPRETATION Normal sinus rhythm Left bundle branch block Abnormal ECG No previous ECGs available Confirmed by MD Salome, Lalit ([id number]) on 07/23/2022 1:19:03 PM MUSE SYSTEM 07/23/2022 12:3 3 PM EDT 07/23/2022 1:19 PM EDT Lalit Mcmahon MD ECG ORDERABLES Performing Organization Address [facility] de Phone Number MUSE SYSTEM * Differential, Automated (07/23/2022 11:55 AM EDT) Neutrophil % 62.6 % [facility] Neutrophil Absolute 4.14 1.70 - 6.10 x10(3)/[facility] Lymph % 27.0 % [facility] Lymphocytes Abs 1.8 0.9 - 3.2 x10(3)/[facility] Monocyte % 7.3 % [facility] Monocyte Abs 0.5 0.3 - 0.9 x10(3)/[facility] Eos % 2.3 % [facility] Eosinophils Abs 0.2 0.0 - 0.4 x10(3)/[facility] Basophil % 0.6 % [facility] Baso Absolute 0.0 0.0 - 0.1 x10(3)/[facility] Immature Gran % 0.20 % [facility] Comment: Immature granulocytes(IG's)percentage and absolute count will include metamyelocytes, myelocytes, and promyelocytes. Blood smears from CBCs yielding IG's will be scanned manually for concordance. If this scan disagrees with the automated IG or if promyelocytes are noted, a manual differential will be performed. Immature Gran Absolute 0.01 0.00 - 0.04 x10(3)/[facility] Blood 07/23/2022 11:5 5 AM EDT 07/23/2022 12:07 PM EDT Narrative Resulting Agency Comment Spec In Lab Lalit Mcmahon MD HEMATOLOGY ORDERABLE S [facility] [place] [address] * Hemogram (07/23/2022 11:55 AM EDT) White Blood Cell 6.6 4.0 - 9.5 x10(3)/[facility] Red Blood Cell 4.50 4.00 - 5.21 x10(6)/[facility] Hemoglobin 13.7 11.7 - 15.5 g/dL [facility] Hematocrit 42.5 35.7 - 45.8 % [facility] Mean Cell Volume 94.4 82.6 - 94.4 fL [facility] Mean Cell Hemoglobin 30.4 27.1 - 32.0 pg [facility] Mean Cell Hemoglobin Concentration 32.2 31.7 - 35.0 g/dL [facility] Platelet 193 145 - 357 x10(3)/[facility] RDW Standard Deviation 45.5 37.0 - 46.0 fL [facility] RDW coefficient of variation 13.2 11.5 - 14.1 % [facility] Mean Platelet Volume 9.5 7.6 - 12.9 fL [facility] NRBC% auto 0.0 % [facility] NRBC Absolute 0.000 0.000 - 0.000 x10(3)/mcL [facility] Blood 07/23/2022 11:5 5 AM EDT 07/23/2022 12:07 PM EDT Narrative Resulting Agency Comment Spec In Lab Lalit Mcmahon MD HEMATOLOGY ORDERABLE S [facility] [address] [place] [address] * (ABNORMAL) BMP w/fasting Glucose (07/23/2022 11:55 AM EDT) Glucose Fasting 110(H) 65 - 99 mg/dL [facility] Comment: ?Fasting* Glucose Interpretive Criteria [...] of Diabetes Mellitus, Position Statement from the [place] [employer]. ??Diabetes Care, Volume 33, Supplement 1, Mar 2009 Blood Urea Nitrogen 23(H) 8 - 18 mg/dL [facility] Creatinine 1.07 0.70 - 1.20 mg/dL [facility] Sodium 141 135 - 145 mmol/L [facility] Potassium 4.8 3.5 - 5.0 mmol/L [facility] Comment: Please note: ??Patients with WBC >100,000 may have falsely elevated Potassium levels. ??For accurate Potassium quantification in these patients send serum separator tube (gold top) for subsequent determinations. ??Contact the Clinical Chemistry Laboratory if there are any questions. Chloride 106 98 - 107 mmol/L [facility] Carbon Dioxide 26 22 - 31 mmol/L [facility] Anion Gap 9 5 - 15 mmol/L [facility] Calcium 9.7 8.5 - 10.5 mg/dL [facility] Est Glomerular Filtration Rate 55(L) >=60 mL/min/1. 73 m?? [facility] Comment: This patient's estimated GFR [...] Mcmahon MD CHEMISTRY ORDERABLES Performing Organization Address [facility] Co de Phone Number [facility] [place] [address] * Prothrombin Time (07/23/2022 11:55 AM EDT) Prothrombin Time 11.7 9.4 - 12.5 sec [facility] International Normalization Ratio 1.0 [facility] Comment: An INR <2.0 indicates [...] MD HEMATOLOGY ORDERABLE S Performing Organization Address City/[facility] Co de Phone Number [facility] [place] [address] documented in this encounter Visit Diagnoses Diagnosis HFrEF (heart failure with reduced ejection fraction)- Primary Left bundle branch block Other left bundle branch block Nonischemic cardiomyopathy Other primary cardiomyopathies Cardiac resynchronization therapy defibrillator (ETL ANALYST DEVELOPER-D) in place Left bundle branch block Other [...] Routine documented in this encounter Care Teams Shingle Trimmer Relationship Specialty Start Date End Date Lolly Oliveira MD [address] [place] [address] PCP - General 07/17/13 documented as of this encounter
--- OUTSIDE RECORDS SUMMARY | 2023-12-03 13:08 | XMS_ITS | Encounter Summary ---
Author Organization [facility] [place] [address] Care Team Providers Care Computer Technologist Name Role Phone Lolly Oilveira MD Primary Care Provider [phone] Reason for Visit * Diagnostic Test (Routine) - Closed Specialty Diagnoses / Procedures Referred By Contac t Referred To Contact Radiology Diagnoses Left bundle branch block Nonischemic cardiomyopathy Procedures MRI Cardiac Morphology Function With Flow Velocity Quantification wwo Contrast MRI Cardiac Morphology Function wwo Contrast Lalit Mcmahon MD [facility] [place] [address] [facility] [place] [address] Referral ID Status Reason Start Date Expiration Date V isits Requested Visits Authorized [id number] Closed Specialty Service Requested 05/06/2022 11/07/2023 2 1 Encounter Details Date Type Department Care Team (Latest Contact Info) Description 07/14/2022 9:09 AM EDT - 07/14/2022 11:59 PM EDT Hospital [place] [address] Lalit Mcmahon MD [facility] [place] [address] Discharge Disposition: Home Social History Tobacco Use [...] with spacer fluticasone propionate (Flonase) 50 mcg/actuation [place], Suspension 1 spray by Each Nare route [...] AM EST Hospital Encounter Non-[place] [address] Arrived documented as of this [...] mLs documented in this encounter Care Teams Computer Technologist Relationship Specialty Start Date End Date Lolly Oliveira MD [address] [place] [address] PCP - General 07/17/13 documented as of this encounter
--- OUTSIDE RECORDS SUMMARY | 2023-12-03 13:08 | XMS_ITS | Encounter Summary ---
Author Organization [facility] [place] [address] Care Team Providers Care Telegraph Office Route Aide Name Role Phone Lolly Oliveira MD Primary Care Provider [phone] Reason for Referral * Diagnostic Test (Routine) - Closed Specialty Diagnoses / Procedures Referred By Contac t Referred To Contact Radiology Diagnoses Left bundle branch block Nonischemic cardiomyopathy Procedures MRI Cardiac Morphology Function With Flow Velocity Quantification [facility] Contrast MRI Cardiac Morphology Function wwo Contrast Lalit Mcmahon MD [facility] [place] [address] [place] [address] Referral ID Status Reason Start Date Expiration Date V isits Requested Visits Authorized [id number] Closed Specialty Service Requested 05/06/2022 11/07/2023 2 1 Reason for Visit * Diagnostic Test (Routine) - Closed Specialty Diagnoses / Procedures Referred By Contac t Referred To Contact Radiology Diagnoses Left bundle branch block Nonischemic cardiomyopathy Procedures MRI Cardiac Morphology Function With Flow Velocity Quantification o Contrast MRI Cardiac Morphology Function wwo Contrast Lalit Mcmahon MD [facility] [place] [address] [place] [address] Referral ID Status Reason Start Date Expiration Date V isits Requested Visits Authorized [id number] Closed Specialty Service Requested 05/06/2022 11/07/2023 2 1 Encounter Details Date Type Department Care Team (Latest Contact Info) Description 07/14/2022 9:08 AM EDT Hospital Encounter MRI at [facility] [place] [address] Lalit Mcmahon MD [facility] [place] [address] Left bundle branch block; Nonischemic cardiomyopathy Discharge [...] with spacer fluticasone propionate (Flonase) 50 mcg/actuation [place], Suspension 1 spray by Each Nare route [...] [address] [facility] [address] Female [phone] (home) No relevant phone numbers on file. Lolly Oliveira MD None Allergies Allergen Reactions ??? Sulfa (Sulfonamide Antibiotics) Date/Time of call: July 07, 2022/11:03 AM/ PREVIOUS MRI SCAN? HEIGHT: WEIGHT: SCHEDULED SCAN: MRI CARDIAC MORPHOLOGY FUNCTION WITH FLOW VELOCITY QUANTIFICATION WWO CONTRAST [[id number]] Order Questions Answers Where will study be performed? [facility] Radiology [120] SUBJECTIVE: Very Claustrophobic [...] ( KV ) You must have a trackless trolley driver present when you check in. This patient has been informed that they require a trackless trolley driver to drive them home after this procedure. In the absence of a trackless trolley driver, IR will not be able to sedate for your scan. Pt verbalized understanding of these instructions during the pre-procedure education via phone. Yes Name of trackless trolley driver: Daughter Phone number: PRIOR SCAN DATE/S SEDATION TYPE SUCCESSFUL 07/14/22 MRI Cardiac Morphology Function with Flow Velocity Quantification wwo Contrast Ativan 1mg x 1 dose Pass Revised 08/03/17 documented in this encounter Plan of Treatment Upcoming Encounters Date Type Department Care Team (Late st Contact Info) Description 01/16/2024 10:[address] [facility] Hospital Encounter [place] [address] Arrived documented as of this encounter Procedures [...] who have questions please contact the health nursing care partner that requested your imaging first. ? Electronically signed by: Greyson Herron MD, [facility] ([phone]), at 07/15/2022 9:53 AM Narrative 07/15/2022 9:53 [...] patients who have questions please contactthe health nursing care partner that requested your imaging first. Lalit Mcmahon [...] mg documented in this encounter Care Teams Telegraph Office Route Aide Relationship Specialty Start Date End Date Lolly Oliveira MD [address] [place] [address] PCP - General 07/17/13 documented as of this encounter
--- OUTSIDE RECORDS SUMMARY | 2023-12-03 13:08 | XMS_ITS | Encounter Summary ---
Author Organization [facility] Address [facility] [place] [address] Care Team Providers Care Facilitator Name Role Phone Lolly Oliveira MD Primary Care Provider [phone] Reason for Visit * Auth/Cert (Routine) Specialty Diagnoses / Procedures Referred By Contac t Referred To Contact Diagnoses Left bundle-branch block, unspecified Other cardiomyopathies Left bundle branch block [I44.7]Nonischemic cardiomyopathy [I42.8] Procedures PRG CATH PLMT LEFT HEART CATH & ARTS W/INJ & ANGIO IMG S&I ELECTROPHYSIOLOGY PROCEDURE Lalit Mcmahon MD [facility] [place] [address] [facility] Referral ID Status Reason Start Date Expiration Date Visits Re quested Visits Authorized [id number] 1 1 Encounter Details Date Type Department Care Team (Late st Contact Info) Description 07/23/2022 1:08 PM EDT Anesthesia Event [place]rophys[place] [address] Monae Gonzalez MD [facility] [place] [address] Maria Elena Snyder CRNA [facility] [place] [address] Anesthesia Record Procedure Summary Procedure Name Responsible [...] 1307; median cubital vein (antecubital fossa), right; jdce-rpi-ahwyyo catheter system; Anatomical Landmarks; 20 gauge; 07/24/22; [...] 1343; metacarpal vein (top of hand), left; qucb-cqo-pxqiea catheter system; Anatomical Landmarks; US Not Used; 22 gauge; 07/24/22; 0913 07/23/22 1343 by MariaE lena Snyder CRNA 07/24/22 0913 by Alia Frye [...] Procedure Summary Date: 07/23/22 Room / Location: [facility] A-LAB ROOM 3 / [facility] EP LABS Anesthesia Start: 1308 Anesthesia Stop: 1633 Procedure: ELECTROPHYSIOLOGY PROCEDURE (Left) Diagnosis: Left bundle branch block Nonischemic cardiomyopathy (Left bundle branch block [I44.7]Nonischemic cardiomyopathy [I42.8]) Providers: Lalit Mcmahon MD Responsible Provider: Monae Gonzalez MD Anesthesia Type: general ASA Status: 4 All Anesthesia Providers: Anesthesiologist: Monae Gonzalez MD; Dominique Sen MD TECHNICAL DELIVERY MANAGER: Maria Elena Snyder CRNA Vitals Value Taken Time BP 131/46 07/23/22 1700 Temp 36.7 ??C (98.1 ??F) 07/23/22 1627 Pulse 67 07/23/22 1703 Resp 14 07/23/22 1703 SpO2 98 % 07/23/22 1703 Pain Level Vitals shown include unvalidated device data. Patient Location: PACU/[facility] Level of Consciousness: Conscious but [...] and Nonischemic CM (EF 15-20%)who presents for EMERGENCY GENERATOR MECHANIC-D. No prior anesthetic records. Pt states [...] daughter/son and patient who. Plan discussed with TECHNICAL DELIVERY MANAGER. Anesthesia Screening documented in this encounter Plan of Treatment Upcoming Encounters Date Type Department Care Team (Late st Contact Info) Description 01/16/2024 10:00 AM [facility] Hospital Encounter Non-Invasive [place] [address] Arrived documented as of this [...] mg documented in this encounter Care Teams Facilitator Relationship Specialty Start Date End Date Lolly Oliveira MD [address] [place] [address] PCP - General 07/17/13 documented as of this encounter
--- OUTSIDE RECORDS SUMMARY | 2023-12-03 13:08 | XMS_ITS | Encounter Summary ---
Author Organization [facility] [place] [address] Care Team Providers Care Excavating Contractor Name Role Phone Lolly Oliveira MD Primary Care Provider [phone] Reason for Visit * Auth/Cert (Routine) Specialty Diagnoses / Procedures Referred By Contac t Referred To Contact Diagnoses Left bundle-branch block, unspecified Other cardiomyopathies Left bundle branch block [I44.7]Nonischemic cardiomyopathy [I42.8] Procedures PRG CATH PLMT LEFT HEART CATH & ARTS W/INJ & ANGIO IMG S&I ELECTROPHYSIOLOGY PROCEDURE Lalit Mcmahon MD [facility] [address] [facility] Referral ID Status Reason Start Date Expiration Date Visits Re quested Visits Authorized [id number] 1 1 Encounter Details Date Type Department Care Team (Late st Contact Info) Description 07/23/2022 1:00 PM EDT - 07/23/2022 5:30 PM EDT Surgery [place] [address] [facility] [place] [address] ELECTROPHYSIOLOGY PROCEDURE Social History Tobacco Use Types Packs/Day Years Used Date Smoking Tobacco: Never Tobacco Cessation:Counseling Given: Not Answered Alcohol Use Standard Drinks/Week Comments Not Currently 0 (1 standard drink = 0.6 oz pur e alcohol) [facility] Inpatient Questions Answer Date [...] Luna Mott Patient Age: 71 y.o. Language: Ukrainian Race: White Ethnicity: Not nor Admit date: 07/23/2022 Discharge date and time: 07/24/22 Attending Physician: Lalit Mcmahon MD Discharge Physician: Lalit Mcmahon MD Follow-up Recommendations for Providers: - s/p ENGINEERING SCIENTIST-D implant - post implant QRS 130 ms [...] ??? Solar lentigo Operations/Major Procedures: 07/23/22: [facility] ENGINEERING SCIENTIST-D implant History of Presentation: 71 y.o. female with a history of HFrEF, LBBB, QRS >150, NYHA II who is POD#1 of ENGINEERING SCIENTIST-D implant ([employer]). Hospital Course: Elective admission for ENGINEERING SCIENTIST-D implant Admitted post-implant for pain management, telemetry [...] (heart failure with reduced ejection fraction) [I50.20] ENGINEERING SCIENTIST-D implant Admission Condition: good Indication for Admission: [...] g Refills: 3 fluticasone propionate 50 mcg/actuation [place], Suspension Commonly known as: Flonase 1 spray [...] sure to use a cloth finishing range tender (such as a towel) in between the [...] F. The office scheduling phone number is [phone]. ARM MOVEMENT RESTRICTIONS POST-IMPLANT - Do not [...] please call the Cardiac ElectrophysiologyTriage Nurse at [phone], option 3. General Instructions None Discharge References/Attachments [...] sure to use a cloth finishing range tender (such as a towel) in between the [...] F. The office scheduling phone number is [phone]. ARM MOVEMENT RESTRICTIONS POST-IMPLANT - Do not [...] please call the Cardiac ElectrophysiologyTriage Nurse at [phone], option 3. documented in this encounter Medications [...] with spacer fluticasone propionate (Flonase) 50 mcg/actuation [place], Suspension 1 spray by Each Nare route [...] Cardiac Electrophysiology Post-Implant Device Interrogation Luna Mott [id number] 07/24/2022 History: Luna Mott is a 71 y.o. female with a history of HFrEF, LBBB, QRS >150, NYHA II who is POD#1 of ENGINEERING SCIENTIST-D implant ([employer] [employer]). Overall feels well this morning. Ready [...] WOB Neuro- A&Ox3 Device Interrogation: Data ?? Flight Radio Operator Model # Serial # Generator [employer] [id number] Atrial Lead [employer] [id number] [id number] RV Lead [employer] 0672 505715 LV Lead [employer] 4674 278305 ?? Diagnostics Pacing Mode: DDD 60-130 Underlying Rhythm: [place] Atrial Episodes: None Ventricular Episodes: None FINAL PROGRAMMING: Pacing: Mode Lower rate (ppm) Upper rate (ppm) ?? DDD 60 130 VF: Rate (bpm) #Antitachycardia pacing First shock energy (J) ?? 200 Quick convert 41 VT: 170 Monitor only Monitor only ? Battery and Leads Impedances (ohms) Sensing (mV) Thresholds HV RA RV LV RA RV LV RA RV LV 73 [phone] (LVa) 7.7 13.1 >25 0.4V @ 0.4 ms 0.4V @ 0.4 ms 0.5 V @ 1.0 ms POD#1 CXR: All leads in nominal positioning Impression: 71 y.o. female who is s/p ENGINEERING SCIENTIST-D implant for LBBB, NYHA II, HFrEF. - [...] [facility]) Fadi Nunez MD 07/24/2022 Pager: [phone] I met with the patient today and [...] agreement. ? Dr. Lalit Mcmahon, electrophysiology attending ([id number]) * Zaria Wright RN - 07/23/2022 8:28 [...] HF, QRS > 150 ms presents for ENGINEERING SCIENTIST-D placement. ROS: Denies recent fevers or chills [...] 0.9) flush 5 mL 5 mL Intravenous [id number] ramos MD ??? sodium chloride 0.9 % [...] HF, QRS > 150 ms presents for ENGINEERING SCIENTIST-D placement. Backup would be LBBAP lead. Antibiotics: cefazolin Rationales for, intended benefits and potential risk of planned procedures reviewed. The patient indicated understanding and agreement with the plan. Informed consent signed. Procedure checklist completed. Fadi Nunez MD Cardiac Electrophysiology Fellow [facility] Pager [phone] 07/23/2022 I met with the patient today [...] agreement. ? Dr. Lalit Mcmahon, electrophysiology attending ([id number]) documented in this encounter Miscellaneous Notes * Brief Op Note - Lalit Mcmahon MD - 07/23/2022 4:04 PM EDT Brief Operative Note Patient Name: Luna Mott : [id number] MR#: [id number] Case Date: 07/23/2022 Surgeon: Surgeon(s) and Role: [...] [place] [address] Arrived Scheduled Orders Name Type Priority Associated Diagnoses Orde r Schedule EKG 12 Lead ECG Routine Cardiac resynchronization therapy defibrillator (ENGINEERING SCIENTIST-D) in place One Time for 1 Occurrences [...] (Bezet) 522 ms MUSE SYSTEM Calculated R [place] 78 degrees MUSE SYSTEM Calculated T [place] -71 degrees MUSE SYSTEM INTERPRETATION AV dual-paced rhythm Abnormal ECG When compared with ECG of 23-JUL-2022 12:33, Electronic ventricular pacemaker has replaced Sinus rhythm Confirmed by MD NORTON SALVATORE ([id number]) on 07/24/2022 10:03:44 AM MUSE SYSTEM 07/24/2022 8:19 AM EDT 07/24/2022 10:03 AM EDT Llait Mcmahon MD ECG ORDERABLES MUSE SYSTEM * [...] have questions please contact the health career resource specialist that requested your imaging first. ? [...] who have questions please contactthe health career resource specialist that requested your imaging first. Lalit Mcmahon MD IMG DX ORDERABLES * ELECTROPHYSIOLOGY PROCEDURE (07/23/2022 1:11 PM EDT) Anatomical Region Laterality Modality Other Narrative 07/23/2022 4:24 PM EDT Table formatting from the original result was not included. BIVENTRICULAR ICD IMPLANTATION Production Control Supervisor: Lalit Mcmahon MD Fellow: Fadi Nunez [...] lateral branch of the CS in the [place]BANIAN view. This branch was cannulated with a [...] the entire procedure. LEAD AND GENERATOR DATA: Flight Radio Operator Model # Serial # Generator [employer] [id number] Atrial Lead [employer] 7841 [id number] RV Lead [employer] 0672 [id number] LV Lead [employer] 4674 [id number] PACE/SENSE DATA: Sensed wave (mV) Threshold (V) [...] 300 CONCLUSIONS: Successful implantation of a [employer] biventricular ICD for primary prevention and treatment of symptoms related to congestive heart failure. Follow up in EP clinic in 1-2 months. Procedures performed: new ICD system ( cpt 85872-R4); implant LV lead at time of ICD insertion (cpt 00991) I have read, edited and approve of this report: Lalit Mcmahon MD [facility] Cardiac Electrophysiology 07/23/2022 4:22 PM Procedure Note Lalit Mcmahon MD - 07/23/2022 BIVENTRICULAR ICD IMPLANTATION Production Control Supervisor: Lalit Mcmahon MD Fellow: Fadi Nunez MD Referring physician: Zamzam Bsos MD PATIENT HISTORY: Ms. Mott is a [...] appropriate lateralbranch of the CS in the ALBANIAN view. This branch was cannulated with a [...] in the entireprocedure. LEAD AND GENERATOR DATA: Flight Radio Operator Model # Serial # Generator [employer] [id number] Atrial Lead [employer] 7841 [id number] RV Lead [employer] 0672 [id number] LV Lead [employer] 4674 430267 PACE/SENSE DATA: Sensed wave (mV) Threshold (V) [...] 300 CONCLUSIONS: Successful implantation of a [employer] biventricular ICD forprimary prevention and treatment of symptoms related to congestive heartfailure. Follow up in EP clinic in 1-2 months. Procedures performed: new ICD system ( cpt 57218-X2); implant LV lead attime of ICD insertion (cpt 12127) I have read, edited and approve of this report: Lalit Mcmahon MD S Cardiac Electrophysiology 07/23/2022 4:22 PM Lalit Mcmahon MD EP PROCEDURE ORDERAB LES * POCT Glucose (07/23/2022 12:54 PM EDT) [facility] Signature Glucose, POC 83 65 - 199 mg/dL [facility] Comment: Supplemental ranges: <140 mg/dL before meals <180 mg/dL all other times of the day Blood 07/23/2022 12:5 4 PM EDT 07/23/2022 12:54 PM EDT Lalit Mcmahon MD POINT OF CARE TEST O RDERABLES Performing Organization Address City/[facility]/ZIP Co de Phone Number [facility] [place] [address] * EKG 12 Lead (07/23/2022 12:33 PM EDT) Ventricular rate 72 BPM MUSE SYSTEM Atrial Rate 72 BPM MUSE SYSTEM P-R Interval 158 ms MUSE SYSTEM QRS Duration 176 ms MUSE SYSTEM Q-T Interval 458 ms MUSE SYSTEM QTC Calculated (Bezet) 501 ms MUSE SYSTEM Calculated P [place] 34 degrees MUSE SYSTEM Calculated R [place] 12 degrees MUSE SYSTEM Calculated T [place] -173 degrees MUSE SYSTEM INTERPRETATION Normal sinus rhythm Left bundle branch block Abnormal ECG No previous ECGs available Confirmed by MD Salome, Lalit ([id number]) on 07/23/2022 1:19:03 PM MUSE SYSTEM 07/23/2022 12:3 3 PM EDT 07/23/2022 1:19 PM EDT Lalit Mcmahon MD ECG ORDERABLES Performing Organization Address [facility]/ZIP Co de Phone Number MUSE SYSTEM * Differential, Automated (07/23/2022 11:55 AM EDT) Neutrophil % 62.6 % [facility] Neutrophil Absolute 4.14 1.70 - 6.10 x10(3)/[facility] LABORATORY Lymph % 27.0 % [facility] Lymphocytes Abs 1.8 0.9 - 3.2 x10(3)/[facility] LABORATORY Monocyte % 7.3 % [facility] H[facility]P ITAL LABORATORY Monocyte Abs 0.5 0.3 - 0.9 x10(3)/[facility] LABORATORY Eos % 2.3 % [facility] Eosinophils Abs 0.2 0.0 - 0.4 x10(3)/[facility] LABORATORY Basophil % 0.6 % [facility] ITAL LABORATORY Baso Absolute 0.0 0.0 - 0.1 x10(3)/[facility] LABORATORY Immature Gran % 0.20 % [facility] Comment: Immature granulocytes(IG's)percentage and absolute count will include metamyelocytes, myelocytes, and promyelocytes. Blood smears from CBCs yielding IG's will be scanned manually for concordance. If this scan disagrees with the automated IG or if promyelocytes are noted, a manual differential will be performed. Immature Gran Absolute 0.01 0.00 - 0.04 x10(3)/[facility] LABORATORY Blood 07/23/2022 11:5 5 AM EDT 07/23/2022 12:07 PM EDT Narrative Resulting Agency Comment Spec In Lab Lalit Mcmahon MD HEMATOLOGY ORDERABLE S [facility] [place] [address] * Hemogram (07/23/2022 11:55 AM EDT) White Blood Cell 6.6 4.0 - 9.5 x10(3)/[facility] LABORATORY Red Blood Cell 4.50 4.00 - 5.21 x10(6)/[facility] LABORATORY Hemoglobin 13.7 11.7 - 15.5 g/dL [facility] Hematocrit 42.5 35.7 - 45.8 % [facility] Mean Cell Volume 94.4 82.6 - 94.4 fL [facility] Mean Cell Hemoglobin 30.4 27.1 - 32.0 pg [facility] Mean Cell Hemoglobin Concentration 32.2 31.7 - 35.0 g/dL [facility] Platelet 193 145 - 357 x10(3)/[facility] LABORATORY RDW Standard Deviation 45.5 37.0 - 46.0 fL [facility] RDW coefficient of variation 13.2 11.5 - 14.1 % [facility] Mean Platelet Volume 9.5 7.6 - 12.9 fL [facility] NRBC% auto 0.0 % [facility] ITAL LABORATORY NRBC Absolute 0.000 0.000 - 0.000 x10(3)/[facility] LABORATORY Blood 07/23/2022 11:5 5 AM EDT 07/23/2022 12:07 PM EDT Narrative Resulting Agency Comment Spec In Lab Lalit Mcmahon MD HEMATOLOGY ORDERABLE S [facility] [place] [address] * (ABNORMAL) BMP w/fasting Glucose (07/23/2022 11:55 AM EDT) Glucose Fasting 110(H) 65 - 99 mg/dL [facility] Comment: ?Fasting* Glucose Interpretive Criteria [...] of Diabetes Mellitus, Position Statement from the [place] [employer]. ??Diabetes Care, Volume 33, Supplement 1, Mar 2009 Blood Urea Nitrogen 23(H) 8 - 18 mg/dL [facility] Creatinine 1.07 0.70 - 1.20 mg/dL [facility] Sodium 141 135 - 145 mmol/L [facility] Potassium 4.8 3.5 - 5.0 mmol/L [facility] Comment: Please note: ??Patients with WBC >100,000 may have falsely elevated Potassium levels. ??For accurate Potassium quantification in these patients send serum separator tube (gold top) for subsequent determinations. ??Contact the Clinical Chemistry Laboratory if there are any questions. Chloride 106 98 - 107 mmol/L [facility] Carbon Dioxide 26 22 - 31 mmol/L [facility] Anion Gap 9 5 - 15 mmol/L [facility] Calcium 9.7 8.5 - 10.5 mg/dL [facility] Est Glomerular Filtration Rate 55(L) >=60 mL/min/1. 73 m?? [facility] Comment: This patient's [...] CHEMISTRY ORDERABLES Performing Organization Address [facility] Co de Phone Number [facility] [place] [address] * Prothrombin Time (07/23/2022 11:55 AM EDT) Prothrombin Time 11.7 9.4 - 12.5 sec [facility] International Normalization Ratio 1.0 [facility] Comment: An INR <2.0 indicates [...] MD HEMATOLOGY ORDERABLE S Performing Organization Address City/[facility] Co de Phone Number [facility] [place] [address] documented in this encounter Visit Diagnoses Diagnosis HFrEF (heart failure with reduced ejection fraction)- Primary Left bundle branch block Other left bundle branch block Nonischemic cardiomyopathy Other primary cardiomyopathies Cardiac resynchronization therapy defibrillator (ENGINEERING SCIENTIST-D) in place Left bundle branch block Other [...] Routine documented in this encounter Care Teams Excavating Contractor Relationship Specialty Start Date End Date Lolly Oliveira MD [address] [place] [address] PCP - General 07/17/13 documented as of this encounter
--- OUTSIDE RECORDS SUMMARY | 2023-12-03 13:08 | XMS_ITS | Encounter Summary ---
[place] [address] Care Team Providers Care Special Client Bus Driver Name Role Phone Lolly Oliveira MD Primary Care Provider [phone] Encounter Details Date Type Department Care Team [...] AM EST Hospital Encounter Non-[place] [address] Arrived documented as of this encounter Visit Diagnoses Not on filedocumented in this encounter Care Teams Special Client Bus Driver Relationship Specialty Start Date End Date Lolly Oliveira MD [address] [place] [address] PCP - General 07/17/13 documented as of this encounter
--- OUTSIDE RECORDS SUMMARY | 2023-12-03 13:08 | XMS_ITS | Encounter Summary ---
[place] [address] Care Team Providers Care Emergency Worker Name Role Phone Lolly Oliveira MD Primary Care Provider [phone] Encounter Details Date Type Department Care Team (Late st Contact Info) Description 07/17/2013 [place] [address] Lolly Oliveira MD [address] [place], [place] [id number] Social History Tobacco Use Types Packs/Day Years [...] AM EST Hospital Encounter Non-[place] [address] Arrived documented as of this encounter Procedures Procedure Name Priority Date/Time Associated Diagnosis Comments REQUEST FOR 2ND READ MAMMO Routine 07/17/2013 8:45 AM EDT documented in this encounter Results * Request for 2nd read Mammo (07/17/2013 8:45 AM EDT) Anatomical Region Laterality Modality Other 07/17/2013 8:45 AM EDT Narrative 07/17/2013 3:57 PM EDT INTERPRETATION OF OUTSIDE MAMMOGRAMS (PERFORMED ON 07/06/13 AND 07/14/13) FROM [facility] DATED 07/17/13: ?? DIAGNOSTIC IMAGING [...] OUTSIDE MAMMOGRAMS (PERFORMED ON 07/06/13 AND 07/14/13) [facility] DATED 07/17/13: DIAGNOSTIC IMAGING [...] filedocumented in this encounter Care Teams Emergency Worker Relationship Specialty Start Date End Date Lolly Oliveira MD [address] [place] [address] PCP - General 07/17/13 documented as of this encounter
--- OUTSIDE RECORDS SUMMARY | 2023-12-03 13:08 | XMS_ITS | Encounter Summary ---
Author Organization [facility] [address] Care Team Providers Care Business Risk Consultant Name Role Phone Unavailable Primary Care Provider Unavailabl e Encounter Details Date Type Department Care Team (Late st Contact Info) Description 07/04/2012 [place] [address] Eleno Christian MD [facility] DIAG[place]ST[place] [address] Social History Tobacco Use Types Packs/Day Years [...] AM EST Hospital Encounter Non-Invasive [place] [address] Arrived documented as of this encounter Procedures [...]
--- OUTSIDE RECORDS SUMMARY | 2023-12-03 13:08 | XMS_ITS | Encounter Summary ---
Author Organization [place] [address] Care Team Providers Care Topology Professor Name Role Phone Lolly Oliveira MD Primary Care Provider [phone] Encounter Details Date Type Department Care Team (Latest Contact Info) Description 07/26/2013 9:45 AM EDT - 07/26/2013 11:59 PM EDT Hospital Encounter [place] [address] Mammographic microcalcification Social History Tobacco Use Types [...] Encounter Non-[place] [address] Arrived documented as of this encounter Procedures [...] microcalcification documented in this encounter Care Teams Topology Professor Relationship Specialty Start Date End Date Lolly Oliveira MD [address] [place] [address] PCP - General 07/17/13 documented as of this encounter
--- OUTSIDE RECORDS SUMMARY | 2023-12-03 13:08 | XMS_ITS | Encounter Summary ---
Author Organization [facility] [place] [address] Care Team Providers Care Director Of The Biophysics Facility Name Role Phone Lolly Oliveira MD Primary Care Provider [phone] Encounter Details Date Type Department Care Team (Late st Contact Info) Description 04/01/2021 3:30 PM EST Office Visit Dermatology at [address] [id number] Clay Ramírez MD [address], [place] [address] Psoriasis, guttate Social History Tobacco Use Types [...] AM EST Hospital Encounter Non[place] [address] Arrived documented as of this encounter Visit Diagnoses Diagnosis Psoriasis, guttate Other psoriasis documented in this encounter Care Teams Director Of The Biophysics Facility Relationship Specialty Start Date End Date Lolly Oliveira MD [address] [place] [address] PCP - General 07/17/13 documented as of this encounter
[2023-12-03 14:50] VITALS: BP 142/74; PULSE 68
== END 2023-12-06 23:59 | disposition home or self-care (01) ==
LOC: CR 13:05
PROVIDERS: PCP Family Medicine; Visit Provider Internal Medicine Cardiovascular Disease
DX: R69 Illness, unspecified (principal)

== ENCOUNTER 2023-12-08 01:07 | Outpatient (CLI) | payer MEDICARE, SELFPAY ==
--- NOTE | 2023-12-08 12:42 | DI.MAMMO_ITS ---
Exam(s) MAMMO SCREENING EXAM: MAMMO SCREENING CLINICAL HISTORY: Screening, Z12.31 TECHNIQUE: Mammograms were interpreted according to the usual protocol including computer analysis w [email or web address] CAD system, tomosynthesis and C-view imaging. COMPARISON: No exams were available for comparison FINDINGS: The breasts are composed of scattered fibroglandular densities, Breast Density category B. No suspicious masses or suspicious microcalcifications are seen. No skin thickening or abnormal axillary lymph nodes are seen. There has been no significant change from prior exams. A pacemaker is again noted over the left pecto ral muscle. IMPRESSION: BI-RADS Category 1, Negative mammogram Yearly screening mammography is recommended. Breast Density - Category B, scattered fibroglandular densities. A negative radiographic report should not delay biopsy if a dominant or clinically suspicious mass is present. Up to ten percent of cancers are not identified on mammography. A negative report may reinforce clinical impression. Adenosis and dense breasts may obscure an underlying neoplasm. False positive reports average 6 to 10%. Patient will receive a letter notifying them of these results.
== END 2023-12-08 01:27 ==
LOC: DI 01:07
PROVIDERS: PCP Family Medicine; Visit Provider Family Medicine
DX: Z12.31 Encounter for screening mammogram for malignant neoplasm of breast (principal)
CPT/HCPCS: 77063; 77067

== ENCOUNTER 2023-12-31 11:08 | Outpatient (RCR) | payer SELFPAY ==
--- OUTSIDE RECORDS SUMMARY | 2023-12-08 11:04 | XMS_ITS | Encounter Summary ---
Author Organization [facility] Address [address] [place] [address] Care Team Providers Care Career Discovery Teacher Name Role Phone Lolly Oliveira MD Primary Care Provider [phone] Encounter Details Date Type Department Care Team (Late st Contact Info) Description 04/17/2005 Results Only [facility] conversion [address] [place] [address] Lolly Oliveira MD [address] [place], [place] [id number] Social History Tobacco Use Types Packs/Day Years [...] ? JING ALVARENGA ? Accession #: ? [id number] : ? 1950 (Age: 54) ??F ?Collect Date: ? 04/17/2005 Location: ? [facility] ? Receive Date: ? 04/21/2005 Provider: ?LOLLY OLIVEIRA MD Copy to: ? Specimen/Source: ?ThinPrep Pap Test, Cervix/Endocervix, processed on ffk environmentPrep Imaging System, with manual evaluation Last Menstrual [...] Oliveira MD PATHOLOGY ORDERABLES [facility] [address] [place] [address] documented in this encounter Visit Diagnoses Not on filedocumented in this encounter Care Teams Career Discovery Teacher Relationship Specialty Start Date End Date Lolly Oliveira MD [address] [place] [address] PCP - General 11/13/08 documented as of this encounter
--- OUTSIDE RECORDS SUMMARY | 2023-12-08 11:04 | XMS_ITS | Encounter Summary ---
Author Organization [facility] Address [address] [place] [address] Care Team Providers Care Hat Lining Paster Name Role Phone Lolly Oliveira MD Primary Care Provider [phone] Encounter Details Date Type Department Care Team (Late st Contact Info) Description 03/06/2003 Results Only [facility] conversion [address] [place] [address] Lolly Oliveira MD [address] [place], [place] [id number] Social History Tobacco Use Types Packs/Day Years [...] Oliveira MD PATHOLOGY ORDERABLES Performing Organization Address City/State/[facility] Co de Phone Number [facility] [address] [place] [address] documented in this encounter Visit Diagnoses Not on filedocumented in this encounter Care Teams Hat Lining Paster Relationship Specialty Start Date End Date Lolly Oliveira MD [address] [place] [address] PCP - General 11/13/08 documented as of this encounter
--- OUTSIDE RECORDS SUMMARY | 2023-12-08 11:04 | XMS_ITS | Clinical Summary ---
Author Organization [facility] Address [address] [place] [address] Care Team Providers Care Trauma Director Name Role Phone Lolly Oliveira MD Primary Care Provider [phone] Social History Tobacco Use Types Packs/Day Years [...] COVID-19 Vaccine ( season) 2023 Care Teams Trauma Director Relationship Specialty Start Date End Date Lolly Oliveira MD [address] [place], [place] [id number] PCP - General 11/13/08
--- OUTSIDE RECORDS SUMMARY | 2023-12-08 11:04 | XMS_ITS | Encounter Summary ---
Author Organization [facility] Address [address] [place] [address] Care Team Providers Care Director Of Patient Care Name Role Phone Lolly Oliveira MD Primary Care Provider [phone] Encounter Details Date Type Department Care Team (Late st Contact Info) Description 04/01/[address] [facility] conversion [address] [place] [address] Blair Dukes MD [address] [place] [id number] Social History Tobacco Use Types Packs/Day Years [...] ? JING ALVARENGA ? Accession #: ? [id number] ? : ? 1950 (Age: 54) ??F [...] (A). Received in [place]e' s fixative labelled [place] and #2 ??transverse colon bx is a single 0.2 x 0.2 x 0.2 cm tissue, submitted intact as (B). ??(Dr. Lechuga)/[facility] End of Report [facility] 04/01/2005 04/02/2005 15: 24 EST Blair Dukes MD PATHOLOGY ORDERABLES [facility] [address] [place] [address] documented in this encounter Visit Diagnoses Not on filedocumented in this encounter Care Teams Director Of Patient Care Relationship Specialty Start Date End Date Lolly Oliveira MD [address] [place] [address] PCP - General 11/13/08 documented as of this encounter
--- OUTSIDE RECORDS SUMMARY | 2023-12-08 11:04 | XMS_ITS | Encounter Summary ---
Author Organization [facility] Address [address] [place] [address] Care Team Providers Care Undercover Agent Name Role Phone oLlly Oliveira MD Primary Care Provider [phone] Encounter Details Date Type Department Care Team (Late st Contact Info) Description 02/20/2020 Lab Requisition [facility] Pathology & Laboratory Medicine - [address] [id number] Outr Resulting Lab, Provider Social History Tobacco [...] in accordance with CLIA regulations, [employer] [place] (CAP) guidelines (May 25, 2019), and FDA guidance (May 06, 2019). This test is only for use under the Food and Drug Administration's Emergency Use Authorization. Swab ENTIRE NASOPHARYNX / Unknown 02/19/2020 16:30 EST 02/20/2020 16:09 EST Provider Outr Resulting Lab MICROBIOLOGY - GENERAL ORDERABLES [facility] [place], [place] * COVID-19 TESTING (02/19/2020 16:30 EST) COVID-19 rt-PCR Result NEGATIVE Negative 02/22/2020 23:41 EST [facility] Comment: 2019-novel Coronavirus (2019-nCoV) not detected [...] in accordance with CLIA regulations, [employer] [place] (CAP) guidelines (May 25, 2019), and FDA guidance (May 06, 2019). This test is only for use under the Food and Drug Administration's Emergency Use Authorization. Performing Lab [facility] 02/22/2020 23:41 EST [facility] Swab 02/19/2020 16:3 0 EST 02/20/2020 16:09 EST Provider Outr Resulting Lab MICROBIOLOGY - GENERAL ORDERABLES [facility] [address] [place] [address] [facility] [place], [place] documented in this encounter Visit Diagnoses Not on filedocumented in this encounter Care Teams Undercover Agent Relationship Specialty Start Date End Date Lolly Oliveira MD [address] [place] [address] PCP - General 11/13/08 documented as of this encounter
--- OUTSIDE RECORDS SUMMARY | 2023-12-08 11:04 | XMS_ITS | Encounter Summary ---
Author Organization [facility] Address [address] [place] [address] Care Team Providers Care Blender / Cook Name Role Phone Lolly Oliveira MD Primary Care Provider [phone] Encounter Details Date Type Department Care Team (Late st Contact Info) Description 05/29/2002 Results Only [facility] [address] [place] [address] Silvia Diehl, [address] [place] [id number] Social History Tobacco Use Types Packs/Day Years [...] ? JING MOTT ? Accession #: ? [id number] : ? 1950 (Age: 51) ??F ?Collect Date: ? 05/29/2002 Location: ? [facility] ? Receive Date: ? 05/31/2002 Provider: ?SILVIA DIEHL BAR HOST/HOSTESS Copy to: ? Specimen/Source: ?ThinPrep Pap Test, [...] Report [facility] 05/29/2002 05/31/2002 Silvia Diehl BAR HOST/HOSTESS PATHOLOGY ORDERABLES [facility] [address] [place] [address] documented in this encounter Visit Diagnoses Not on filedocumented in this encounter Care Teams Blender / Cook Relationship Specialty Start Date End Date Lolly Oliveira MD [address] [place] [address] PCP - General 11/13/08 documented as of this encounter
--- OUTSIDE RECORDS SUMMARY | 2023-12-08 11:04 | XMS_ITS | Encounter Summary ---
Author Organization [facility] [place] [address] Care Team Providers Care Front Office Attendant Name Role Phone Lolly Oliveira MD Primary Care Provider [phone] Encounter Details Date Type Department Care Team [...] EST Hospital Encounter Non-Invasive [place] [address] Arrived documented as of this encounter Visit Diagnoses Not on filedocumented in this encounter Care Teams Front Office Attendant Relationship Specialty Start Date End Date Lolly Oliveira MD [address] [place] [address] PCP - General 07/17/13 documented as of this encounter
--- OUTSIDE RECORDS SUMMARY | 2023-12-08 11:04 | XMS_ITS | Clinical Summary ---
Author Organization [facility] [place] [address] Care Team Providers Care Occupational Health Nurse Supervisor Name Role Phone Lolly Oliveira MD Primary Care Provider [phone] Allergies Active Allergy Reactions Criticality Noted Date [...] spacer Active fluticasone propionate (Flonase) 50 mcg/actuation [place], Suspension 1 spray by Each Nare route [...] PM EDT Hospital Encounter [place] [address] Discharge Disposition: Home from Last [...] AM EST Hospital Encounter [place] [address] Arrived Health Maintenance Due Date Last Done [...] series) 11/07/2023 Medical Devices Implanted Type Area Intelligence Specialist Device Identifier Shelf Expiration Date Model / Serial / Lot Bsx: [id number]: [id number]/18/2 023 Implanted: by Lalit Mcmahon MD (Quantity not on file) Defibrillator Chest Wall [employer] [id number] / [id number] / Bsx: [id number]: [id number]/18/2 023 Implanted: by Lalit Mcmahon MD (Quantity not on file) Lead Heart [employer] [id number] / [id number] / Bsx: [id number]: [id number] Implanted: by Lalit Mcmahon MD (Quantity not on file) Lead Heart [employer] [id number] / [id number] / Bsx: [id number]: [id number]/18/2 023 Implanted: by Lalit Mcmahon MD (Quantity not on file) Lead Heart [employer] [id number] / [id number] / Procedures Procedure Name Priority Date/Time Associated [...] Status decision made by: Patient Care Teams Occupational Health Nurse Supervisor Relationship Specialty Start Date End Date Lolly Oliveira MD [address] [place] [address] PCP - General 07/17/13
--- OUTSIDE RECORDS SUMMARY | 2023-12-08 11:04 | XMS_ITS | Encounter Summary ---
Author Organization [facility] Address [address] [place] [address] Care Team Providers Care Jail Officer Name Role Phone Unavailable Primary Care Provider Unavailabl e Encounter Details Date Type Department Care Team (Late st Contact Info) Description 11/07/2008 Orders Only [facility] Laboratory Services - [facility] ([facility]) [address] [place] [address] Kenneth Parker MD [address] [place] [id number] Social History Tobacco Use Types Packs/Day Years [...] ? LYLE, JING ? Accession #: ? [id number] ? : ? 1950 (Age: 58) ??F [...] Parker MD PATHOLOGY ORDERABLES Performing Organization Address City/State/[facility] Co de Phone Number [facility] [address] [place] [address] documented in this encounter Visit Diagnoses Not on filedocumented in this encounter
--- OUTSIDE RECORDS SUMMARY | 2023-12-08 11:04 | XMS_ITS | Encounter Summary ---
Author Organization [facility] Address [address] [place] [address] Care Team Providers Care Screen Handler Name Role Phone Lolly Oliveira MD Primary Care Provider [phone] Encounter Details Date Type Department Care Team (Late st Contact Info) Description 04/12/2007 Results Only [facility] conversion [address] [place] [address] Lolly Oliveira MD [address] [place], [place] [id number] Social History Tobacco Use Types Packs/Day Years [...] ? JING ALVARENGA ? Accession #: ? [id number] : ? 1950 (Age: 56) ??F ?Collect Date: ? 04/12/2007 Location: ? [facility] ? Receive Date: ? 04/13/2007 Provider: ?LOLLY OLIVEIRA MD Copy to: ? Specimen/Source: ?ThinPrep Pap Test, Cervix/Endocervix, processed on [employer] ThinPrep Imaging System, with manual evaluation Last [...] Oliveira MD PATHOLOGY ORDERABLES [facility] [address] [place] [address] documented in this encounter Visit Diagnoses Not on filedocumented in this encounter Care Teams Screen Handler Relationship Specialty Start Date End Date Lolly Oliveira MD [address] [place] [address] PCP - General 11/13/08 documented as of this encounter
--- OUTSIDE RECORDS SUMMARY | 2023-12-08 11:04 | XMS_ITS | Encounter Summary ---
Author Organization [facility] Address [address] [place] [address] Care Team Providers Care Fiber Drier Operator Name Role Phone Lolly Oliveira MD Primary Care Provider [phone] Encounter Details Date Type Department Care Team (Late st Contact Info) Description 03/21/2019 Lab Requisition [facility] Pathology & Laboratory Medicine - [address] [address] Unknown, Provider, Social History Tobacco Use Types [...] 911 pg/mL 03/22/2019 11:52 EST [facility] Blood VENOUS BLOOD / Unknown 03/16/2019 9:25 EST 03/21/2019 21:35 EST Provider Unknown CHEMISTRY & BLOOD GA S ORDERABLES [facility] [address] [place] [address] documented in this encounter Visit Diagnoses Not on filedocumented in this encounter Care Teams Fiber Drier Operator Relationship Specialty Start Date End Date Lolly Oliveira MD [address] [place] [address] PCP - General 11/13/08 documented as of this encounter
--- OUTSIDE RECORDS SUMMARY | 2023-12-08 11:04 | XMS_ITS | Encounter Summary ---
Author Organization [place] [address] Care Team Providers Care Media Consultant Outside Sales Name Role Phone Lolly Oliveira MD Primary Care Provider [phone] Encounter Details Date Type Department Care Team (Latest Contact Info) Description 10/18/2023 10:00 AM EDT - 10/18/2023 11:59 PM EDT Hospital Encounter [place] [address] Discharge Disposition: Home Social History Tobacco Use [...] with spacer fluticasone propionate (Flonase) 50 mcg/actuation [place], Suspension 1 spray by Each Nare route daily as needed. documented as of this encounter Plan of Treatment Upcoming Encounters Date Type Department Care Team (Late st Contact Info) Description 01/16/2024 10:00 AM EST Hospital Encounter Non[place] [address] Arrived documented as of this encounter Procedures [...] on filedocumented in this encounter Care Teams Media Consultant Outside Sales Relationship Specialty Start Date End Date Lolly Oliveira MD [address] [place] [address] PCP - General 07/17/13 documented as of this encounter
--- OUTSIDE RECORDS SUMMARY | 2023-12-08 11:04 | XMS_ITS | Encounter Summary ---
Author Organization [facility] Address [address] [place] [address] Care Team Providers Care Solar Site Assessment Specialist Name Role Phone Lolly Oliveira MD Primary Care Provider [phone] Encounter Details Date Type Department Care Team (Late st Contact Info) Description 06/16/2012 Results Only [facility] Laboratory [facility] - [facility] ([facility]) [address] [place], [place] [id number] Lolly Oliveira MD [address] [place], [place] [id number] Social History Tobacco Use Types Packs/Day Years [...] ? JING ALVARENGA ? Accession #: ? [id number] : ? 1950 (Age: 61) ??F ?Collect [...] MD PATHOLOGY ORDERABLES [facility] [address] [place] [address] documented in this encounter Visit Diagnoses Not on filedocumented in this encounter Care Teams Solar Site Assessment Specialist Relationship Specialty Start Date End Date Lolly Oliveira MD [address] [place] [address] PCP - General 11/13/08 documented as of this encounter
--- OUTSIDE RECORDS SUMMARY | 2023-12-08 11:04 | XMS_ITS | Referral Summary ---
Author Organization [facility] Address [address] [place] [address] Care Team Providers Care Aquatic Performer Name Role Phone Lolly Oliveira MD Primary Care Provider [phone] Social History Tobacco Use Types Packs/Day Years Used Date Smoking Tobacco: Never Assessed Sex and Gender Information Value Date Recorded Sex Assigned at Not on file Gender Identity Not on file Sexual Orientation Not on file Plan of Treatment Not on file Care Teams Aquatic Performer Relationship Specialty Start Date End Date Lolly Oliveira MD [address] [place] [address] PCP - General 11/13/08
--- OUTSIDE RECORDS SUMMARY | 2023-12-08 11:04 | XMS_ITS | Data Portability ---
Author Organization [facility], [facility] [place] [address] Care Team Providers Care Supervisor Weaving Name Role Phone [facility] OFFICE Optometris t ZAMZAM BOSS Library Attendant JAYCOB KHAN Orthopedic Surgeon [phone] ROXANA KELLEY Lei Maker FLOWER RAMSEY Dentist [phone] Assessment Encounter Date Assessment Date Assessment LastModified [...] copy of PPP at conclusion of visit. [email or web address] Not available 04/20/2023 07:44:20 Plan of Treatment Reminders Order Date Submit Date Provider Last Modified By Organization Details Last Modified Time Details Appointments Medicare Annual Wellness 40 2024 07:30A M Not available Not available Not available Lab None recorded. Referral podiatris t referral 2023 024 [email or web address] [facility], [address] [place] [address] , [place], [address], 09/24/2023 13:45:43 physical therapist referral 2023 024 Chinedu Amato PT, [address] , [place], [address], 10/18/2023 12:01:58 Procedures None recorded. Surgeries None recorded. Imaging MAMMO, screening , bilateral 2023 024 [facility] (Radiology), [address] , [place], [address], 11/26/2023 15:15:54 Medication Orders Jardiance 10 mg tablet 2023 024 [facility], [address] [place] [address], [address], 05/24/2023 18:32:26 lisinopri l 20 mg tablet 2023 024 [facility], [address] [place], [address], 05/24/2023 18:32:26 meclizine 25 mg tablet 2023 024 [facility], [address] [place], [address], 09/01/2023 13:22:14 Patient TargetsNo targets recorded. Patient Instructions Encounter Date Encounter Id Patient Instructions Last Modified By Organization Details Last Modified Time 05/21/2023 [id number] Discussed and explained advance directives such as standard forms to the {{patient caregiv er patient and caregiver}}. Face to face discussion lasted for a duration of ___ minutes. [email or web address] Not available 04/20/2023 07:44:20 09/01/2023 [id number] 1. The earwax from your ears were [...] Not available 09/01/2023 13:23:33 Reason for Referral Store Director Referral for Onyc homycosis onychomycosis, calluses Referring [...] pleme nt 1):S1 3-s28 . Not Available [address] [place], [address] 11/18/2023 09:59:24 11/18/19 24 11/18/2023 COMPR EHENS NEEL METAB OLIC PANEL calcium 9.0 mg/dL 8.5-10 .1 normal Not Available [address] [place], [address] 11/18/2023 10:01:26 11/18/19 24 11/18/2023 COMPR EHENS NEEL METAB OLIC PANEL glucose 105 mg/dL 74-106 normal Not Available [facility] oden [address] [place], [address] 11/18/2023 10:01:11/18/19 24 11/18/2023 COMPR EHENS NEEL METAB OLIC PANEL BUN 27 mg/dL 7-18 high Not Available [facility]ider oden [address] [place], [address] 11/18/2023 10:01:11/18/19 24 11/18/2023 COMPR EHENS NEEL METAB OLIC PANEL creatinine 1.3 mg/dL 0.55-1 .02 high Not Available [address] [place], [address] 11/18/2023 10:01:11/18/19 24 11/18/2023 COMPR EHENS NEEL [...] young er-ag ed adult s. Not Available [address] [place], [address] 11/18/2023 10:01:11/18/1911/18/2023 COMPR EHENS NEEL METAB OLIC PANEL total protein 7.5 g/dL 6.4-8. 2 normal Not Available [address] [place], [address] 11/18/2023 10:01:11/18/19 24 11/18/2023 COMPR EHENS NEEL METAB OLIC PANEL albumin 3.6 g/dL 3.4-5. 0 normal Not Available [address] [place], [address] 11/18/2023 10:01:11/18/19 24 11/18/2023 COMPR EHENS NEEL METAB OLIC PANEL bilirubin, total 0.59 mg/dL 0.2-1. 0 normal Not Available [address] [place], [address] 11/18/2023 10:01:26 11/18/19 24 11/18/2023 COMPR EHENS NEEL METAB OLIC PANEL alk phos 135 U/L 46-116 high Not Available [address] [place], [address] 11/18/2023 10:01:11/18/19 24 11/18/2023 COMPR EHENS NEEL METAB OLIC PANEL sodium 139 mmol/ L 136-14 5 normal Not Available [address] [place], [address] 11/18/2023 10:01:11/18/19 24 11/18/2023 COMPR EHENS NEEL METAB OLIC PANEL potassium 4.2 mmol/ L 3.5-5. 1 normal Not Available [address] [place], [address] 11/18/2023 10:01:26 11/18/19 24 11/18/2023 COMPR EHENS NEEL METAB OLIC PANEL chloride 103 mmol/ L 98-107 normal Not Available [address] [place], [address] 11/18/2023 10:01:11/18/19 24 11/18/2023 COMPR EHENS NEEL METAB OLIC PANEL CO2 29.0 mmol/ L 21.0-3 2.0 normal Not Available [address] [place], [address] 11/18/2023 10:01:26 11/18/19 24 11/18/2023 COMPR EHENS NEEL METAB OLIC PANEL anion gap 7.0 mmol/ L 3-11 normal Not Available [address] [place], [address] 11/18/2023 10:01:26 11/18/19 24 11/18/2023 COMPR EHENS NEEL METAB OLIC PANEL AST 29 U/L 15-37 normal Not Available [facility] [address] [place], [address] 11/18/2023 10:01:26 11/18/19 24 11/18/2023 COMPR EHENS NEEL METAB OLIC PANEL ALT 24 U/L 14-59 normal Not Available Haider oden [address] [place], [address] 11/18/2023 10:01:26 11/18/19 24 11/18/2023 LIPID 2 cholesterol 157 mg/dL <200 Not Available Edgar jaimes [address] [place], [address] 11/18/2023 10:01:27 11/18/19 24 11/18/2023 LIPID 2 triglyceride 79 mg/dL <150 Not Available [address] [place], [address] 11/18/2023 10:01:27 11/18/19 24 11/18/2023 LIPID 2 HDL cholesterol 78 mg/dL 40-60 Not Available Pk richmond [address] [place], [address] 11/18/2023 10:01:27 11/18/19 24 11/18/2023 LIPID 2 [...] 18 years or older . Not Available [address] [place], [address] 11/18/2023 10:01:27 05/03/19 24 05/03/2023 ultra sound imagi ng sanjay t [facility] t Name: Naomi Mott Unit #: [id number] Loc: DI Valencia ng Provid er: Lalit Mcmahon M.D. 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 Thank- you. [facility] [address] [place], [address] 05/03/2023 18:12:07 05/13/19 24 05/13/2023 josh robertson am EKG PATIAUSTIN T NAME: Naomi Mott yolanda Blandon UNIT #: [id number] ORDERI NG PROVID ER: Lalit Mcmahon M.D. ACCOUN T #: [id number] PRIMAR Y CARE PROVID ER: JUSTYN Suresh MD, LOLLY DATE/T DONNA OF SE RVICE: 1252 : 1950 KELSI JOÃO LOCATI ON: DI.CAR D ------ ------ --- APPROV ED REPORT ------ ------ -- Exam: Restin g ECG Reason for Exam: LBBB, CMP Patien t Locati on: O HR:73 bpm ECG Measur ements Heart Rate 73 AXIS NE 27 P 111 QRSd 115 QRS 80 [...] - E-Sign Date: E-Sign Time: 0850 [email or web address] [facility] [address] [place], [address] 09/13/2023 15:45:54 06/28/19 24 01/12/2023 x-ray imagi ng [facility] t Gelyaustin t Name: Naomi Mott Unit #: [id number] Loc: ALIZA Ordererika ng Provid er: Karan Freire M.D. Accoun t #: [id number] Status : [facility] Primks y [facility] er: Janice Pérez M.D. Date of Exam [...] error, please notify us immedi ately at [phone] and return the origin al report to us at the addres s above. Thank- you. rod [facility] [address], [place], [address] 06/29/2023 07:24:17 11/22/19 24 04/16/2022 bone densi [...] and Address Organization Details Recorded Time Asthma 951056622 Active 200204/14/19 22 - Comments only - Lolly Cortez MD - Not too much of an issue recently . She does keep albutero l inhaler availabl e if needed. Problem Code: 493.90; Problem Code Type: ICD-9; Not Available [facility] 3 04:01:51 Atypical glandula r cells on cervical Papanico laou smear 466068043 Active 2007 Problem Code: 795.00; Problem Code Type: ICD-9; Not Available [facility] 3 04:01:51 Dizzines s and giddines s 834458911 Active 201404/14/19 22 - Comments only - Lolly Cortez MD - , Intermit tent. She has learned to deal with it using the Jd's maneuver . She will call if any signific ant worsenin g. Problem Code: R42; Problem Code Type: ICD-10; Not Available [facility] 3 04:01:52 Essentia l hyperten pura 04939379 Active 201401/12/20 22 - Comments only - Lolly Cortez MD - Blood pressure well controll ed with the lisinopr il and Toprol. Problem Code: I10; Problem Code Type: ICD-10; Not Available [facility] 3 04:01:52 Adult health examinat ion Active 201504/16/19 23 - Comments only - Lolly Cortez MD - UTD with mammo, has a DEXA schedule d ( dx of osteopor osis), will check an A1c. Problem Code: Z00.00; Problem Code Type: ICD-10; Not Available [facility] 3 04:01:52 Disorder of skin and/or subcutan eous tissue 55773130 Active 201509/17/19 16 - Comments only - Lolly Cortez MD - the lesions on the buttucks appear to have been possible boils that are now healing vs atopic rxn resolvin g. At this point no tx needed. If worsenin g/recurr ing she will call. I don't believe these are related to rubbing while walking Problem Code: L98.9; Problem Code Type: ICD-10; Not Available [facility] 3 04:01:52 Pain in right hip joint 08096468499 9102 Completed 201512/02/2022 Problem Code: M25.551; Problem Code Type: ICD-10; Not Available [facility] 3 04:01:52 Onychomy cosis due to dermatop hyte 248576167 Active 201609/23/19 17 - Comments only - Lolly Cortez MD - she is going to contact podiatry to find out if they have any other topical txs that might work. She is not interest ed in systemic tx Problem Code: B35.1; Problem Code Type: ICD-10; Not Available [facility] 3 04:01:52 Hearing loss of right ear 495034439 Completed 201712/10/2017 11/27/19 18 - Comments only - Naseem Gil PA-C - Cerumino sis treated in-offic e today. If hearing fails to be fully restored over the course of the weekend, will consider for ENT refer for formal audiolog y assessme nt. Problem Code: H91.91; Problem Code Type: ICD-10; Not Available [facility] 3 04:01:52 Abnormal weight gain 668139859 Active 2018 Problem Code: R63.5; Problem Code Type: ICD-10; Not Available [facility] 3 04:01:53 Disorder of hip joint 659719031 Active 201801/12/20 22 - Comments only - [...] Available [facility] 3 04:01:53 Acute vaginiti s 91152646 Completed 201801/04/2019 12/22/19 19 - Comments only - Naseem Gil PA-C - Will await resutls of today's collecte d VPS to determin e indicati on for further treatmen t. Problem Code: N76.0; Problem Code Type: ICD-10; Not Available [facility] 3 04:01:53 Intertri go 28499132 Completed 201801/04/2019 12/22/19 19 - Comments only - Naseem Gil PA-C - Patient encourag ed to keep skin folds as clean and dry as possible to avoid reactiva tion (suggest ed chair car attendant after bathing) . Addition ally, could consider to use OTC DESITIN for acute skin healing. Problem Code: L30.4; Problem Code Type: ICD-10; Not Available [facility] 3 04:01:53 Pre-surg cecilia evaluati on Completed 201801/23/2019 01/10/20 19 - Comments only - Naseem iGl PA-C - Today's EKG shows stable LBBB (compare d to study 10/19/14) with NSR at 69bpm. Patient to f/u for pre-oper ative laborato ry testing and anesthes ia consult as schedule d 01/17/19 . Problem Code: Z01.818; Problem Code Type: ICD-10; Not Available [facility] 3 04:01:53 Hip joint prosthes is present 806324745 Active 2018 Problem Code: Z96.642; Problem Code Type: ICD-10; Not Available [facility] 3 04:01:53 Dyspnea 489944158 Completed 201903/27/2019 03/13/19 20 - Comments only [...] R06.02; Problem Code Type: ICD-10; Not Available [facility] 3 04:01:54 Edema 602817965 Completed 201906/21/2019 06/07/19 20 - Comments only - Naseem Gil PA-C - Patient reassure d nothing concerni ng on today's PX to raise suspicio n for DVT. Suspect minor calf muscle strain. OK to continue to use compress ion stocking s for symtpoma tic relief and consider calf stretche s. F/U PRN. Problem Code: R60.9; Problem Code Type: ICD-10; Not Available [facility] 3 04:01:54 Headache 69095971 Active 2020 Problem Code: R51.9; Problem Code Type: ICD-10; Not Available [facility] 3 04:01:54 Guttate psoriasi s 44487432 Active 202004/16/19 23 - Comments only - Lolly Cortez MD - being followed by mika mercado under reasonab le control with the UV tx and prn clobetas ol cream Problem Code: L40.4; Problem Code Type: ICD-10; Not Available [facility] 3 04:01:54 Stool finding 187950518 Active 2021 Problem Code: R19.5; Problem Code Type: ICD-10; Not Available [facility] 3 04:01:54 Speciali zed medical examinat ion Active 2021 Problem Code: Z01.89; Problem Code Type: ICD-10; Not Available [facility] 3 04:01:54 Edema 897647808 Active 2021 Problem Code: R60.9; Problem Code Type: ICD-10; Not Available [facility] 3 04:01:55 Screenin g mammogra phy Active 2021 Problem Code: Z12.31; Problem Code Type: ICD-10; Not Available [facility] 3 04:01:55 Abnormal finding on evaluati on procedur e 123568783 Active 2021 Problem Code: R89.9; Problem Code Type: ICD-10; Not Available [facility] 3 04:01:55 Dyspnea 950110192 Active 2021 Problem Code: R06.02; Problem Code Type: ICD-10; Not Available [facility] 3 04:01:55 Cardiomy opathy 60481708 Active 202109/05/19 23 - Comments only - Lolly Cortez MD - Clinical ly remainin g stable on the lisinopr il, furosemi de 20 mg daily, Jardianc e, Toprol, rosuvast atin, aspirin. ICD/pace maker in place. Followin g with cardiolo gy. She is walking/ exercisi ng regularl y. Problem Code: I42.9; Problem Code Type: ICD-10; Not Available [facility] 3 04:01:55 Heart failure 97212192 Active 2021 Problem Code: I50.9; Problem Code Type: ICD-10; Not Available [facility] 3 04:01:56 Family history of breast cancer 369963010 Active 2021 Problem Code: Z80.3; Problem Code Type: ICD-10; Not Available [facility] 3 04:01:56 Burn 830877161 Active 202101/12/20 22 - Comments only - Lolly Cortez MD - Healing slowly, no evidence of infectio n. If she has any further question s regardin g this she will let us know. Problem Code: T30.0; Problem Code Type: ICD-10; Not Available [facility] 3 04:01:56 Senile osteopor osis 00487658 Active 202101/12/20 22 - Comments only - Lolly Cortez MD - Due for a repeat DEXA scan. Ordered. She does take an over-the -counter vitamin D suppleme nt I believe. Problem Code: M81.0; Problem Code Type: ICD-10; Not Available [facility] 3 04:01:56 Hyperlip idemia 38341095 Active 202204/16/19 23 - Comments only - Lolly Cortez MD - will check LFTs, CPK, on rosuvast atin 5mg daily which has brought her lipids into goal range. Problem Code: E78.5; Problem Code Type: ICD-10; Not Available [facility] 3 04:01:56 Adjustme nt disorder 98728657 Active 2022 Problem Code: F43.20; Problem Code Type: ICD-10; Not Available [facility] 3 04:01:56 Dysuria 57300434 Active 2022 Problem Code: R30.9; Problem Code Type: ICD-10; Not Available [facility] 3 04:01:57 Itching of skin 867719903 Active 2022 Problem Code: L29.8; Problem Code Type: ICD-10; Not Available [facility] 3 04:01:57 Automati c implanta ble cardiac defibril lator in situ 038409388 Active 2022 Problem Code: Z95.810; Problem Code Type: ICD-10; Not Available [facility] 3 04:01:57 Glycosur ia 12610270 Active 202209/05/19 23 - Comments only - Lolly Cortez MD - , No prior diagnosi s of diabetes . She is developi ng diabetes that could be number perineal symptoms . 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 256783133 Active 202209/05/19 23 - Comments only - [...] N90.89; Problem Code Type: ICD-10; Not Available [facility] 3 04:01:57 Allergic contact dermatit is 027232198 Completed 202012/02/2022 Problem Code: L23.9; Problem Code Type: ICD-10; Not Available [facility] 3 04:02:02 Essentia l hyperten pura 79639376 Completed 200107/25/2015 Problem Code: 401.9; Problem Code Type: ICD-9; Not Available [facility] 3 04:02:03 Polyp of colon 23592123 Completed 201006/05/2021 Problem Code: K63.5; Problem Code Type: ICD-10; Not Available [facility] 3 04:02:03 History of vertigo 721803379 Completed 201012/02/2022 01/11/20 15 - Improved - Lolly Cortez MD - she will continue with Jd's manoever PRN and call if worsenin g/nothin g helping Not Available [facility] 3 04:02:04 Acute sinusiti s 00029650 Completed 201912/16/2020 Problem Code: J01.90; Problem Code Type: ICD-10; Not Available [facility] 3 04:02:05 Pain of right lower leg 48185251199 9108 Completed 202101/11/2022 Problem Code: M79.661; Problem Code Type: ICD-10; Not Available [facility] 3 04:02:06 Hyperlip idemia 29702332 Completed 200910/19/2017 Not Available [facility] 3 04:02:07 Dizzines s and giddines s 037102163 Completed 201408/14/2019 Problem Code: R42; Problem Code Type: ICD-10; Not Available [facility] 3 04:02:07 Hyperten sive disorder 41778366 Completed 201011/03/2018 Not Available [facility] 3 04:02:09 Diarrhea 63698498 Completed 201610/19/2017 Problem Code: R19.7; Problem Code Type: ICD-10; Not Available [facility] 3 04:02:10 Anemia 616501148 Completed 201901/11/2022 Problem Code: D64.9; Problem Code Type: ICD-10; Not Available [facility] 3 04:02:10 Regan - lesion 984426360 Active 2022 Problem Code: L84; Problem Code Type: ICD-10; Not Available [facility] 4 05:37:51 Foot callus 644622342 Active [address], [address] 4 11:29:32 Onychomy cosis 185268693 Active [address], [address] 4 11:29:44 Vertigo 978645055 Active [address], [address] 4 13:20:57 Impacted cerumen of bilatera l ears 96611646065 77689 Active [address], [address] 4 13:21:03 Prediabe tish 735126053 Active [address], [address] 4 09:24:37 Notes:*Problem Name: Colonos copy 2006 - Hyperplastic Polyp *ICD-10 Codes: *Problem Status: inactive *Comments: *Note Date: 04/29/2010 *Problem Name: Rt Breast Bx 2014 - Adenosis *ICD-10 Codes: *Problem Status: active *Comments: *Note Date: 08/01/2013 Problem Notes Documentation Provider Name and Address Organization Details Recorded Time Cardiology Note : Cardiology Office Visit PATIENT NAME: Luna Mott UNIT #: [id number] ADMITTING PROVIDER: Zamzam Boss M.D. ACCOUNT #: [id number] PRIMARY CARE PROVIDER: LOLLY CORTEZ MD DATE [...] Year Total time on date of encounter, (bngv-or-nxta and non ubqv-yh-twca) (minutes): 19 Time was spent: reviewing prior [...] to loose wt but t is hard. 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 Thank you. SUSAN juan, [facility] 09/13/2023 15:45:17 Procedures Surgical History Date Name Laterality Status Provider Name and Address Organization Details Recorded Time 4 Cerumen Removal completed [address], [place], [address], [facility] 09/01/2023 13:52:38 3 total replacement of right hip joint completed Cornelia Lizarraga [facility] 03/31/2023 17:11:24 Imaging Results Imaging Date Name Status LastModified by Organization Details LastModified Time 05/03/2023 ultrasound [facility] [address] [place], [address] 05/03/2023 18:12:07 05/13/2023 electrocardiogram completed [address] [place] [address] [place], [address] 09/13/2023 15:45:54 01/12/2023 x-ray imaging report [facility] [place] [address] [facility] [place], [address] 06/29/2023 07:24:17 04/16/2022 bone density completed Information [...] Name and Address Organization Details Recorded Time 13954 sulfadiaz ine medicatio n tachycard ia mild Not available 01/15/20232001 48962 RxNorm Tachy cardi a Not Available [facility] 16:22:29 Medications Name Sig Start Date [...] % 96 % 65 /min 38.7 kg/m2 60595.8 3 g 128 mm[Hg] 72 mm[Hg] Davey Allen [place] - [facility]. 4 10:27:29 Date Recorded Body height Body mass index (BMI) Body weight Body temperature Respiratory rate Oxygen saturation Oxygen saturation in Arterial blood by Pulse oximetry Heart rate Systolic blood pressure Diastolic blood pressure Provider Name and Address Organization Details Last Updated DateTime 4 159.385 cm 38.7 kg/m2 82706.8 2 g 97.1 [degF] 17 /min 95 % 95 % 60 /min 139 mm[Hg] 69 mm[Hg] Vonda Fields RN [facility] 4 12:25:13 Date Recorded Body height Body mass index (BMI) Body weight Oxygen saturation Oxygen saturation in Arterial blood by Pulse oximetry Heart rate Respiratory rate Systolic blood pressure Diastolic blood pressure Provider Name and Address Organization Details Last Updated DateTime 4 159.385 cm 40.4 kg/m2 042600. 88 g 99 % 99 % 63 /min 18 /min 136 mm[Hg] 68 mm[Hg] Davey Allen MA [facility] 4 07:36:54 Social History Question Answer Notes LastModified by Organizat ion Details LastModified Time Tobacco Smoking Status Never Smoker Davey Allen MA [facility], [facility] 05/21/2023 10:57:21 Would You Say That, In General, Your Health Is Very Good [email or web address] Information not available 05/21/2023 How Often Does Anyone, Including Family, Physically Hurt You? Never [email or web address] Information not available 05/21/2023 How Often Does Anyone, Including Family, Insult Or Talk Down To You? Never [email or web address] Information no t available 05/21/2023 How Often Does Anyone, Including Family, Threaten You With Harm? Never Information not available 05/21/2023 How Often Does Anyone, Including Family, Scream Or Curse At You? Never Information not available 05/21/2023 Within The Past 12 Months, You Worried That Your Food Would Run Out Before You Got Money To Buy More. Never True [email or web address] Information n ot available 05/21/2023 Within The Past 12 Months, The Food You Bought Just Didn't Last And You Didn't Have Money To Get More. Never True [email or web address] Information n ot available 05/21/2023 How Hard Is It For You To Pay For The Very Basics Like Food, Housing, Medical Care, And Heating? Would You Say It Is: Not Hard At All [email or web address] Information not available 05/21/2023 In The Past 12 Months, Has Lack Of Reliable Transportation Kept You From Medical Appointments, Meetings, Work Or From Getting Things Needed For Daily Living? No [email or web address] Information not available 05/21/2023 What Is Your Housing Situation Today? I Have Housing. [email or web address] Information not available 05/21/2023 How Often In The Past Year Have You Used Marijuana (including Smoking, Vaping, Dabbing, Or Edibles)? Never [email or web address] Information not available 05/21/2023 How Often In The Past Year Have You Used Prescription Medications That Were Not Prescribed To You? Never [email or web address] Information n ot available 05/21/2023 How Often In The Past Year Have You Taken Your Own Prescription Medication More Than The Way It Was Prescribed Or For Different Reasons Than Its Intended Purpose? Never [email or web address] Information no t available 05/21/2023 How Often In The Past Year Have You Used Other Drugs (for Example, Heroin, Cocaine, Meth, Salvia, Inhalants)? Never [email or web address] Information not available 05/21/2023 Have You Ever Used IV Drugs? No [email or web address] Information not available 05/21/2023 What Matters Most To You? Staying Healthy, Keeping Active. Getting Exercise And Losing Some Weight [email or web address] Information not available 05/21/2023 During The Past Four Weeks Has Your Physical And Emotional Health Limited Your Social Activities With Family And Friends, Neighbors, Or Groups? Not At All Information not available 05/21/2023 During The Past Four Weeks, Was Someone Available To Help You If You Needed And Wanted Help? (For Example, If You Snyder Very Nervous, Lonely, Or Blue; Got Sick And Had To Stay In Bed; Needed Someone To Talk To; Needed Help With Daily Chores; Or Needed Help Just Taking Care Of Yourself.) No- Not At All [email or web address] Information n ot available 05/21/2023 During The Past Four Weeks, What Was The Hardest Physical Activity You Could Do For At Least 2 Minutes? Moderate [email or web address] Information not available 05/21/2023 Can You Get To Places Out Of Walking Distance Without Help? (For Example, Can You Travel Alone On Buses Or Taxis, Or Drive Your Own Car?) Yes [email or web address] Information not available 05/21/2023 Can You Go Shopping For Groceries Or Clothes Without Someone? s Help? Yes [email or web address] Information not available 05/21/2023 Can You Prepare Your Own Meals? Yes [email or web address] Information not available 05/21/2023 Can You Do Your Housework Without Help? Yes [email or web address] Information not available 05/21/2023 Because Of Any Health Problems, Do You Need The Help Of Another Person With Your Personal Care Needs Such As Eating, Bathing, Dressing, Or Getting Around The House? No [email or web address] Information not available 05/21/2023 Can You Handle Your Own Money Without Help? Yes Information not available 05/21/2023 Are You Having Difficulties Driving Your Car? No Information no t available 05/21/2023 Do You Always Fasten Your Seat Belt When You Are In A Car? Yes- Usually [email or web address] Information not available 05/21/2023 How Often During The Past Four Weeks Have You Been Bothered By Any Of The Following Problems? Falling Or Dizzy When Standing Up? Never [email or web address] Information not available 05/21/2023 Sexual Problems? Never [email or web address] Informat ion not available 05/21/2023 Trouble Eating Well? Sometimes [email or web address] Information not available 05/21/2023 Teeth Or Denture Problems? Sometimes [email or web address] Information not available 05/21/2023 Problems Using The Telephone? Never [email or web address] Information not available 05/21/2023 Tiredness Or Fatigue? Sometimes [email or web address] Information not available 05/21/2023 Have You Had 2 Or More Falls Or Sustained An Injury With A Fall In The Last Year? No [email or web address] Information no t available 05/21/2023 Do You Have Difficulty With Walking Or Balance? No [email or web address] Information not available 05/21/2023 Do You Currently Use A Hearing Device? No [email or web address] Information not available 05/21/2023 Do You Currently Have Any Trouble With Your Vision? Yes [email or web address] Information no t available 05/21/2023 Do You Exercise For About 20 Minutes Three Or More Days A Week? Yes- Most Of The Time [email or web address] Information not available 05/21/2023 Are There Any Safety Concerns In Your Home (see Attached CDC Pamphlet)? No [email or web address] Information not available 05/21/2023 How Often Do You Have Trouble Taking Medicines The Way You Have Been Told To Take Them? I Always Take Them As Prescribed [email or web address] Information not available 05/21/2023 How Confident Are You That You Can Control And Manage Most Of Your Health Problems? Very Confident [email or web address] Information not available 05/21/2023 Do You Currently Have Any Difficulty With Your Hearing? No [email or web address] Information not available 05/21/2023 Date Of Most Recent SBINS 05/21/2023 [email or web address] Information not available 05/21/2023 What Was The Date Of Your Most Recent Tobacco Screening? 09/01/2023 Information not available 09/01/2023 Has Tobacco Cessation Counseling Been Provided? Yes Information not available 09/01/2023 On What Date Was Tobacco Cessation Counseling Provided? 09/01/2023 Information not available 09/01/2023 Do You Or Have You Ever Used Any Other Forms Of Tobacco Or Nicotine? No [email or web address] Information not available 05/21/2023 Sex: Female Functional [...] a brain bleed, ended up with a [place] filter. Brother - Agent orange exposure SISTER [...] 01/15/2023 04:53:39 Tdap 04/12/2007 completed Not Available [facility] 04:53:39 zoster live 06/16/2012 completed Not Available [facility] 01/15/2023 04:53:40 Pneumococcal conjugate PCV 13 09/17/2015 completed Not Available [facility] 01/15/2023 04:53:40 Influenza, high-dose, trivalent, PF 11/26/2017 completed Not Available [facility] 01/15/2023 04:53:41 Td(adult) unspecified formulation 09/30/1992 completed Not Available [facility] 01/15/2023 04:53:41 Influenza, split virus, trivalent, preservative 11/28/2015 completed Not Available [facility] 01/15/2023 04:53:41 Influenza, split virus, trivalent, preservative 01/04/2015 completed Not Available [facility] 01/15/2023 04:53:41 Influenza, split virus, quadrivalent, PF 12/21/2018 completed Not Available [facility] 01/15/2023 04:53:41 zoster recombinant 08/30/2018 completed Not Available [facility] 01/15/2023 04:53:42 zoster recombinant 01/26/2018 completed Not Available [facility] 01/15/2023 04:53:42 Influenza, high-dose, quadrivalent, PF 12/04/2020 completed Not Available [facility] 01/15/2023 04:53:43 Influenza, high-dose, quadrivalent, PF 12/11/2019 completed Not Available [facility] 01/15/2023 04:53:43 Influenza, high-dose, quadrivalent, PF 12/29/2021 completed Not Available [facility] 01/15/2023 04:53:43 COVID-19, mRNA, LNP-S, PF, 100 mcg/0.5mL dose or 50 mcg/0.25mL dose 07/09/2021 completed Not Available [facility] 01/15/2023 04:53:43 COVID-19 vaccine, vector-nr, rS-Ad26, PF, 0.5 mL 05/02/2020 completed Not Available [facility] 01/15/2023 04:53:44 SARS-COV-2 (COVID-19) vaccine, UNSPECIFIED 05/31/2020 completed Not Available [facility] 01/15/2023 04:53:44 SARS-COV-2 (COVID-19) vaccine, UNSPECIFIED 01/03/2021 completed Not Available [facility] 01/15/2023 04:53:44 pneumococcal polysaccharide PPV23 07/05/2014 completed Not Available [facility] 2022 04:53:45 Hep B, unspecified formulation 04/14/1993 completed Not Available [facility] 01/15/2023 04:53:45 Hep B, unspecified formulation 09/30/1992 completed Not Available [facility] 01/15/2023 04:53:46 Hep B, unspecified formulation 10/31/1992 completed Not Available [facility] 01/15/2023 04:53:46 influenza, unspecified formulation 12/11/2009 completed Not Available [facility] 01/15/2023 04:53:47 influenza, unspecified formulation 12/13/2012 completed Not Available [facility] 01/15/2023 04:53:47 influenza, unspecified formulation 12/18/2008 completed Not Available [facility] 01/15/2023 04:53:47 influenza, unspecified formulation 12/19/2010 completed Not Available [facility] 01/15/2023 04:53:47 influenza, unspecified formulation 12/30/2006 completed Not Available [facility] 01/15/2023 04:53:48 influenza, unspecified formulation 01/09/2014 completed Not Available [facility] 01/15/2023 04:53:48 influenza, unspecified formulation 01/26/2008 completed Not Available [facility] 01/15/2023 04:53:48 influenza, unspecified formulation 02/16/2012 completed Not Available [facility] 01/15/2023 04:53:48 Influenza, high-dose, quadrivalent, PF 12/17/2022 completed Not Available [facility] 03/19/2023 05:33:03 COVID-19, mRNA, LNP-S, PF, herminio-sucrose, 30 mcg/0.3 mL 12/28/2022 completed Not Available [facility] 03/19/2023 05:33:03 Past Encounters Encounter ID Performer Location Encounter Start Date Encounter Closed Date Diagnosis/Indication Diagnosis SNOMED-CT Code Diagnosis ICD10 Code [id number] LOLLY CORTEZ MD [facility] [address] [place] [address] 05/21/2023 10:03:54 05/21/2023 11:37:49 Onychomycosis 708104822 B35.1 Asthma 003383925 J45.90 9 Cardiomyopathy 52237442 I10 Disorder of hip joint 42 2983486 M12.859 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 Hyperlipidemia 80964025 E78.5 Vulval and /or perineal noninflammatory disorders 075894438 N90.9 Adult heal th examination 273112317 Z00.[id number] [place] [address] 09/01/2023 10:23:16 09/01/2023 13:28:10 Vertigo 860190661 R42 Impacted c erumen of bilateral ears 2361089490 777625 H61.23 [id number] LOLLY CORTEZ MD [facility] [address] [place] [address] 11/26/2023 07:26:08 11/26/2023 08:10:59 Screening mammography 82232026 Z12.31 Adjustment disorder 1722 6007 F43.20 Asthma 725166333 J45.90 9 Essential hypertension 39614609 I10 Guttate psoriasis 589471 00 L40.4 Cardiomyopathy 73497154 I10 Hyperlipidemia 61619457 E78.5 Prediabetes 047861999 R7 3.03 Health Concerns Section Related Observation LastModified by Organization Detai ls LastModified Time None Recorded Concern Status LastModified by Organization Details LastModified Time None Recorded Advance Directives Directive None Recorded Payers Encounter Date Sequence Insurance Name Policy Number Policy Lema Covered Member ID Lema Member ID Guarantor Name 05/21/2023 1 [place] - [place]PO) [id number] Luna Mott [id number] Luna Mott 09/01/2023 1 [place] - [place]) [id number] Luna Mott [id number] Luna Mott 11/26/2023 1 [place] - [place]) [id number] Luna Mott [id number] Luna Mott Notes Date Note Type Note Provider Name and Address Organization Details Recorded Time 05/21/2023 text/html HPI Notes: Thais here today for an annual wellness exam MD [address], [place], [address], [facility] 05/24/2023 18:32:35 09/01/2023 text/html HPI Notes: Luna [...] the name of it. [address], [place], [address], [facility]. 09/01/2023 13:55:07 11/26/2023 text/html HPI Notes: Thais here today for follow-up of cardiomyopathy, obesity MD [address], [place], [address], [facility]. 11/28/2023 09:26:44 OBGyn Episode No OBEpisode recorded.
--- OUTSIDE RECORDS SUMMARY | 2023-12-08 11:04 | XMS_ITS | Encounter Summary ---
Author Organization [facility] Address [address] [place] [address] Care Team Providers Care Sporting Goods Sales Manager Name Role Phone Lolly Oliveira MD Primary Care Provider [phone] Encounter Details Date Type Department Care Team (Late st Contact Info) Description 11/13/2020 Lab Requisition [facility] Pathology & Laboratory Medicine - [address] [id number] Outr Resulting Lab, Provider Social History Tobacco [...] Outr Resulting Lab MICROBIOLOGY - GENERAL ORDERABLES [facility] [address] [place] [address] * COVID-19 TESTING (11/13/2020 7:30 EDT) COVID-19 rt-PCR Result Negative Negative 11/14/2020 11:46 EDT [facility] Comment: This test has [...] performed using the med SARS-CoV-2 assay ([employer] on the Med 6800 System Performing Lab Med 6800 [facility] Lab 11/14/2020 11:46 EDT [facility] Swab 11/13/2020 7:30 EDT 11/13/2020 20:57 EDT Provider Outr Resulting Lab MICROBIOLOGY - GENERAL ORDERABLES [facility] [address] [place] [address] documented in this encounter Visit Diagnoses Not on filedocumented in this encounter Care Teams Sporting Goods Sales Manager Relationship Specialty Start Date End Date Lolly Oliveira MD [address] [place] [address] PCP - General 11/13/08 documented as of this encounter
--- OUTSIDE RECORDS SUMMARY | 2023-12-08 11:04 | XMS_ITS | Encounter Summary ---
Author Organization [facility] [place] [address] Care Team Providers Care Market Editor Name Role Phone Lolly Oliveira MD Primary Care Provider [phone] Encounter Details Date Type Department Care Team (Late st Contact Info) Description 05/18/2023 Telephone Dermatology at [address] [address] Nora Meredith LPN Social History [...] [facility] Hospital Encounter [place] [address] Arrived documented as of this encounter Visit Diagnoses Not on filedocumented in this encounter Care Teams Market Editor Relationship Specialty Start Date End Date Lolly Oliveira MD [address] [place] [address] PCP - General 07/17/13 documented as of this encounter
--- OUTSIDE RECORDS SUMMARY | 2023-12-08 11:04 | XMS_ITS | Encounter Summary ---
Author Organization [facility] Address [address] [place] [address] Care Team Providers Care Automatic Cigar Wrapper Tender Name Role Phone Lolly Oliveira MD Primary Care Provider [phone] Encounter Details Date Type Department Care Team (Late st Contact Info) Description 02/11/2021 Lab Requisition [facility] Pathology & Laboratory Medicine - [address] [address] Outr Resulting Lab, Provider Social History Tobacco [...] Outr Resulting Lab MICROBIOLOGY - GENERAL ORDERABLES [facility] [address] [place] [address] * COVID-19 TESTING (02/11/2021 8:00 EST) COVID-19 rt-PCR Result Negative Negative 02/12/2021 14:17 EST [facility] Comment: This test has [...] was performed using the med SARS-CoV-2 assay ([employer] on the Med 6800 System Performing Lab Med 6800 [facility] Lab 02/12/2021 14:17 EST [facility] Swab 02/11/2021 8:00 EST 02/11/2021 22:22 EST Provider Outr Resulting Lab MICROBIOLOGY - GENERAL ORDERABLES [facility] [address] [place] [address] documented in this encounter Visit Diagnoses Not on filedocumented in this encounter Care Teams Automatic Cigar Wrapper Tender Relationship Specialty Start Date End Date Lolly Oliveira MD [address] [place] [address] PCP - General 11/13/08 documented as of this encounter
--- OUTSIDE RECORDS SUMMARY | 2023-12-08 11:04 | XMS_ITS | Encounter Summary ---
Author Organization Count Includes [facility] [address] Care Team Providers Care Content Producer Name Role Phone Lolly Oliveira MD Primary Care Provider [phone] Encounter Details Date Type Department Care Team (Latest Contact Info) Description 07/20/2023 10:00 AM EDT - 07/20/2023 11:59 PM EDT Hospital Encounter [place] [address] Discharge Disposition: Home Social History Tobacco Use [...] with spacer fluticasone propionate (Flonase) 50 mcg/actuation [place], Suspension 1 spray by Each Nare route daily as needed. documented as of this encounter Plan of Treatment Upcoming Encounters Date Type Department Care Team (Late st Contact Info) Description 01/16/2024 10:[address] [facility] Hospital Encounter [place] [address] Arrived documented as of this encounter Procedures [...] on filedocumented in this encounter Care Teams Content Producer Relationship Specialty Start Date End Date Lolly Oliveira MD [address] [place] [address] PCP - General 07/17/13 documented as of this encounter
--- OUTSIDE RECORDS SUMMARY | 2023-12-08 11:04 | XMS_ITS | Encounter Summary ---
Author Organization [facility] [place] [address] Care Team Providers Care Envelope Addresser Name Role Phone Lolly Oliveira MD Primary Care Provider [phone] Reason for Visit * Reason Comments Follow-up 8 weeks UVB treatmen t twice weekly Encounter Details Date Type Department Care Team (Late st Contact Info) Description 07/19/2023 11:00 AM EDT Office Visit Dermatology at [address] [id number] Clay Ramírez MD [address], [place] A [facility] [place], [place] [id number] Psoriasis Social History Tobacco Use Types Packs/Day [...] [facility] Hospital Encounter Non[place] [address] Arrived documented as of this encounter Visit Diagnoses Diagnosis Psoriasis Other psoriasis documented in this encounter Care Teams Envelope Addresser Relationship Specialty Start Date End Date Lolly Oliveira MD [address] [place] [address] PCP - General 07/17/13 documented as of this encounter
--- OUTSIDE RECORDS SUMMARY | 2023-12-08 11:04 | XMS_ITS | Encounter Summary ---
Author Organization [facility] [place] [address] Care Team Providers Care Title Curative Specialist Name Role Phone Lolly Oliveira MD Primary Care Provider [phone] Encounter Details Date Type Department Care Team (Late st Contact Info) Description 05/18/2023 Refill Dermatology at [address] [address] Nora Meredith LPN Social History [...] patient. She voiced understanding. Order sent to [facility] drug. documented in this encounter Plan of Treatment Upcoming Encounters Date Type Department Care Team (Late st Contact Info) Description 01/16/2024 10:00 AM EST Hospital Encounter [place] [address] Arrived documented as of this encounter Visit Diagnoses Not on filedocumented in this encounter Care Teams Title Curative Specialist Relationship Specialty Start Date End Date Lolly Oliveira MD [address] [place] [address] PCP - General 07/17/13 documented as of this encounter
--- OUTSIDE RECORDS SUMMARY | 2023-12-08 11:04 | XMS_ITS | Encounter Summary ---
Author Organization [facility] Address [address] [place] [address] Care Team Providers Care Agriculture Instructor Name Role Phone Lolly Oliveira MD Primary Care Provider [phone] Encounter Details Date Type Department Care Team (Late st Contact Info) Description 05/02/2004 Results Only [facility] [address] [place] [address] Lolly Oliveira MD [address] [place], [place] [id number] Social History Tobacco Use Types Packs/Day Years [...] 68. [facility] Report Status Final [id number] [facility] 05/02/2004 9:32 EST 05/10/2004 9:32 EST Lolly Oliveira MD MICROBIOLOGY - GENER AL ORDERABLES [facility] [address] [place] [address] * CYTOPATHOLOGY (05/02/2004 0:00 EST) Pathology Report: CYTOPATHOLOGY REPORT Reports generated via electronic interface contain original data; however they are lacking the format of the original report. Caution should be taken when reading/interpreti ng unformatted reports. Name: ? JING ALVARENGA ? Accession #: ? [id number] : ? 1950 (Age: 53) ??F ?Collect [...] de Phone Number [facility] [address] [place] [address] documented in this encounter Visit Diagnoses Not on filedocumented in this encounter Care Teams Agriculture Instructor Relationship Specialty Start Date End Date Lolly Oliveira MD [address] [place] [address] PCP - General 11/13/08 documented as of this encounter
--- OUTSIDE RECORDS SUMMARY | 2023-12-08 11:04 | XMS_ITS | Encounter Summary ---
Author Organization [facility] Address [address] [place] [address] Care Team Providers Care Blunger Machine Operator Name Role Phone Lolly Oliveira MD Primary Care Provider [phone] Encounter Details Date Type Department Care Team (Late st Contact Info) Description 05/27/2021 Lab Requisition [facility] Pathology & Laboratory Medicine - [address] [address] Iman Moran, DO [address] [place], [place] [phone] Encounter for other general examination Social History [...] management options, if applicable. 05/30/2021 13:31 EDT [facility] Final Diagnosis A. COLON, POLYP AT 90 CM, BIOPSY/POLYPECTOM Y: - Tubular adenoma. 05/30/2021 13:31 [facility] Attestation By the signature below, the attending physician certifies that they have 1) personally conducted a gross and/or microscopic examination of the described specimen(s), and/or personally interpreted the results of laboratory testing of the described specimen(s), and 2) personally rendered or confirmed the above diagnosis. 05/30/2021 13:31 [facility] at 1331 Clinical History Severe diverticula and polypectomy x1 05/30/2021 13:31 [facility] Gross Description A. Received in formalin labelled with proper patient identification (initials J, K) and colon polyp x1 at 90 cm is a light pineda polypoid tissue measuring 0.2 x 0.2 x 0.2 cm. Submitted intact in A1. MICKEY CARLOS(ASCP) 05/27/2021 19:11 05/30/2021 13:31 [facility] Performing Lab [facility] 05/30/2021 13:31 [facility] Scanned Images 05/30/2021 13:31 [facility] Tissue ENTIRE COLON / Unknown 05/27/2021 11:23 EDT 05/27/2021 16:33 EDT Iman Moran DO PATHOLOGY ORDERABLES [facility] [address] [place] [address] documented in this encounter Visit Diagnoses Diagnosis Encounter for other general examination documented in this encounter Care Teams Blunger Machine Operator Relationship Specialty Start Date End Date Lolly Oliveira MD [address] [place] [address] PCP - General 11/13/08 documented as of this encounter
--- OUTSIDE RECORDS SUMMARY | 2023-12-08 11:04 | XMS_ITS | Encounter Summary ---
Author Organization [facility] Address [address] [place] [address] Care Team Providers Care Dietist Name Role Phone Lolly Oliveira MD Primary Care Provider [phone] Encounter Details Date Type Department Care Team (Late st Contact Info) Description 04/25/2009 Orders Only [facility] Laboratory Services - [facility] [address] [place], [place] [phone] Lolly Oliveira MD [address] [place], [place] [phone] Social History Tobacco Use Types Packs/Day Years [...] ? JING ALVARENGA ? Accession #: ? [id number] ? : ? 1950 (Age: 58) ??F [...] and electronically signed by: ? Hel[place], [place](ASCP) ? Report Date: ??04/29/2009 10:38 ? End of Report ? [facility] 04/25/2009 04/26/2009 Lolly Oliveira MD PATHOLOGY ORDERABLES [facility] [address] [place] [address] documented in this encounter Visit Diagnoses Not on filedocumented in this encounter Care Teams Dietist Relationship Specialty Start Date End Date Lolly Oliveira MD [address] [place] [address] PCP - General 11/13/08 documented as of this encounter
--- OUTSIDE RECORDS SUMMARY | 2023-12-08 11:05 | XMS_ITS | Encounter Summary ---
Author Organization Formerly [facility] [place] [address] Care Team Providers Care Fluxer Name Role Phone Lolly Oliveira MD Primary Care Provider [phone] Reason for Referral * Consultation (Routine) - Closed Specialty Diagnoses / Procedures Referred By Contact Referred To Contact Electrophysiology / Cardiology Diagnoses Left bundle branch block Cardiomyopathy, unspecified type AT MINIMUM PT NEEDS CONSIDERATION FOR DEFIBRILLATOR, ALSO CANDIDATE FOR RESYNCHRONIZATION THERAPY HER QRS IS >0.16 Lolly Oliveira MD [address] [place] [address] [facility] [address] [place] [phone] Referral ID Status Reason Start Date Expiration Date V isits Requested Visits Authorized [id number] Closed Consult, Test & Treat PCP Updated and/or Approved 04/30/2022 04/30/2023 6 6 Encounter Details Date Type Department Care Team (Latest Contact Info) Description 04/30/2022 Transcribe Orders eDH Incoming Referrals [phone] Lolly Oliveira MD [address] [place], [place] [id number] Left bundle branch block; Cardiomyopathy, unspecified type [...] AM EST Hospital Encounter Non-Invasive [place] [address] Arrived Scheduled Referrals Name Type Priority Associated Diagnoses Orde r Schedule Referral to Cardiology Outpatient Referral Routine Left bundle branch block Cardiomyopathy, Unspecified Type Ordered: 04/30/2022 documented as of this encounter Visit Diagnoses Diagnosis Left bundle branch block Other left bundle branch block Cardiomyopathy, unspecified type documented in this encounter Care Teams Fluxer Relationship Specialty Start Date End Date Lolly Oliveira MD [address] [place] [address] PCP - General 07/17/13 documented as of this encounter
--- OUTSIDE RECORDS SUMMARY | 2023-12-08 11:05 | XMS_ITS | Encounter Summary ---
Author Organization [facility] [place] [address] Care Team Providers Care Luggage Repairer Name Role Phone Lolly Oliveira MD Primary Care Provider [phone] Reason for Visit * Reason Comments Follow-up Encounter Details Date Type Department Care Team (Late st Contact Info) Description 05/21/2022 8:00 AM EDT Office Visit Dermatology at [address] [phone] Clay Ramírez MD [address] [facility], [place] [address] Psoriasis, guttate Social History Tobacco Use Types [...] [facility] Hospital Encounter Non-[place] [address] Arrived documented as of this encounter Visit Diagnoses Diagnosis Psoriasis, guttate Other psoriasis documented in this encounter Care Teams Luggage Repairer Relationship Specialty Start Date End Date Lolly Oliveira MD [address] [place] [address] PCP - General 07/17/13 documented as of this encounter
--- OUTSIDE RECORDS SUMMARY | 2023-12-08 11:05 | XMS_ITS | Encounter Summary ---
Author Organization [facility] [place] [address] Care Team Providers Care Overhead Distribution Engineer Name Role Phone Lolly Oliveira MD Primary Care Provider [phone] Reason for Visit * Diagnostic Test (Routine) - Closed Specialty Diagnoses / Procedures Referred By Contac t Referred To Contact Radiology Diagnoses Left bundle branch block Nonischemic cardiomyopathy Procedures MRI Cardiac Morphology Function With Flow Velocity Quantification wwo Contrast MRI Cardiac Morphology Function wwo Contrast Lalit Mcmahon MD [facility] [place] [address] [facility] [place] [address] Referral ID Status Reason Start Date Expiration Date V isits Requested Visits Authorized [id number] Closed Specialty Service Requested 05/06/2022 11/07/2023 2 1 Encounter Details Date Type Department Care Team (Latest Contact Info) Description 07/14/2022 9:09 AM EDT - 07/14/2022 11:59 PM EDT Hospital [place] [address] Lalit Mcmahon MD [facility] [place] [place] [address] Discharge Disposition: Home Social History Tobacco Use [...] with spacer fluticasone propionate (Flonase) 50 mcg/actuation [place], Suspension 1 spray by Each Nare [...] AM EST Hospital Encounter Non-[place] [address] Arrived documented as of this [...] mLs documented in this encounter Care Teams Overhead Distribution Engineer Relationship Specialty Start Date End Date Lolly Oliveira MD [address] [place] [address] PCP - General 07/17/13 documented as of this encounter
--- OUTSIDE RECORDS SUMMARY | 2023-12-08 11:05 | XMS_ITS | Encounter Summary ---
Author Organization [place] [address] Care Team Providers Care Wood Floor Layer Name Role Phone Lolly Oliveira MD Primary Care Provider [phone] Encounter Details Date Type Department Care Team (Latest Contact Info) Description 07/20/2013 9:26 AM EDT - 07/20/2013 11:59 PM EDT Hospital [place] [phone] CLINIC, Lolly So MD [address] [place], [place] [id number] Mammographic microcalcification Discharge Disposition: Home Social History [...] AM EST Hospital Encounter [place] [address] Arrived documented as of this encounter Procedures [...] does not layer and, therefore, are not independent sales representative of milk of calcium. Again, [...] does not layer and, therefore, are not independent sales representative of milk of calcium. Again, these have an amorphous andpunctate appearance and remain indeterminate. Stereotactic guided biopsy isrecommended. Alia Fraire MD IMG MAMMO ORDERABLES documented in this encounter Visit Diagnoses Diagnosis Mammographic microcalcification documented in this encounter Care Teams Wood Floor Layer Relationship Specialty Start Date End Date Lolly Oliveira MD [address] [place] [address] PCP - General 07/17/13 documented as of this encounter
--- OUTSIDE RECORDS SUMMARY | 2023-12-08 11:05 | XMS_ITS | Encounter Summary ---
Author Organization [facility] Address [facility] [place] [address] Care Team Providers Care Inspector Final Assembly Mechanical Name Role Phone Lolly Oliveira MD Primary Care Provider [phone] Encounter Details Date Type Department Care Team (Late st Contact Info) Description 05/03/2023 Telephone Cardiology at [address] [phone] Lalit Mcmahon MD [facility] [place] [address] Social History Tobacco Use Types Packs/Day Years Used Date Smoking Tobacco: Never Alcohol Use Standard Drinks/Week Comments Not Currently 0 (1 standard drink = 0.6 oz pur e alcohol) [facility] Inpatient Questions Answer Date Recorded Does Anyone [...] AM EST Hospital Encounter Non-[place] [address] Arrived documented as of this encounter Visit Diagnoses Not on filedocumented in this encounter Care Teams Inspector Final Assembly Mechanical Relationship Specialty Start Date End Date Lolly Oliveira MD [address] [place] [address] PCP - General 07/17/13 documented as of this encounter
--- OUTSIDE RECORDS SUMMARY | 2023-12-08 11:05 | XMS_ITS | Encounter Summary ---
Author Organization [facility] [place] [address] Care Team Providers Care Side Puller Name Role Phone Lolly Oliveira MD Primary Care Provider [phone] Reason for Referral * Diagnostic Test (Routine) - Closed Specialty Diagnoses / Procedures Referred By Contac t Referred To Contact Radiology Diagnoses Left bundle branch block Nonischemic cardiomyopathy Procedures MRI Cardiac Morphology Function With Flow Velocity Quantification [facility] Contrast MRI Cardiac Morphology Function wwo Contrast Lalit Mcmahon MD [facility] [place] [address] [place] [address] Referral ID Status Reason Start Date Expiration Date V isits Requested Visits Authorized [id number] Closed Specialty Service Requested 05/06/2022 11/07/2023 2 1 Reason for Visit * Diagnostic Test (Routine) - Closed Specialty Diagnoses / Procedures Referred By Contac t Referred To Contact Radiology Diagnoses Left bundle branch block Nonischemic cardiomyopathy Procedures MRI Cardiac Morphology Function With Flow Velocity Quantification o Contrast MRI Cardiac Morphology Function wwo Contrast Lalit Mcmahon MD [facility] [place] [place] [address] [place] [address] Referral ID Status Reason Start Date Expiration Date V isits Requested Visits Authorized [id number] Closed Specialty Service Requested 05/06/2022 11/07/2023 2 1 Encounter Details Date Type Department Care Team (Latest Contact Info) Description 07/14/2022 9:08 AM EDT Hospital Encounter MRI at [facility] [place] [phone] Lalit Mcmahon MD [facility] [place] [address] Left bundle branch block; Nonischemic cardiomyopathy Discharge [...] with spacer fluticasone propionate (Flonase) 50 mcg/actuation [place], Suspension 1 spray by Each Nare route [...] : 1950 [address] [facility] [address] Female [phone] (home) No relevant phone numbers on file. Lolly Oliveira MD None Allergies Allergen Reactions ??? Sulfa (Sulfonamide Antibiotics) Date/Time of call: July 07, 2022/11:03 AM/ PREVIOUS MRI SCAN? HEIGHT: WEIGHT: SCHEDULED SCAN: MRI CARDIAC MORPHOLOGY FUNCTION WITH FLOW VELOCITY QUANTIFICATION WWO CONTRAST [[id number]] Order Questions Answers Where will study be performed? [facility] Radiology [120] SUBJECTIVE: Very Claustrophobic CAN [...] ( [place] ) You must have a tractor driver present when you check in. This patient has been informed that they require a tractor driver to drive them home after this procedure. In the absence of a tractor driver, IR will not be able to sedate for your scan. Pt verbalized understanding of these instructions during the pre-procedure education via phone. Yes Name of tractor driver: Daughter Phone number: PRIOR SCAN DATE/S SEDATION TYPE SUCCESSFUL 07/14/22 MRI Cardiac Morphology Function with Flow Velocity Quantification wwo Contrast Ativan 1mg x 1 dose Pass Revised 08/03/17 documented in this encounter Plan of Treatment Upcoming Encounters Date Type Department Care Team (Late st Contact Info) Description 01/16/2024 10:00 AM [facility] Hospital Encounter [place] [address] Arrived documented as of this encounter Procedures [...] who have questions please contact the health adult care provider that requested your imaging first. ? Narrative [...] patients who have questions please contactthe health adult care provider that requested your imaging first. Lalit Mcmahon [...] mg documented in this encounter Care Teams Side Puller Relationship Specialty Start Date End Date Lolly Oliveira MD [address] [place] [address] PCP - General 07/17/13 documented as of this encounter
--- OUTSIDE RECORDS SUMMARY | 2023-12-08 11:05 | XMS_ITS | Encounter Summary ---
[place] [address] Care Team Providers Care Evening Anchor Name Role Phone Lolly Oliveira MD Primary Care Provider [phone] Encounter Details Date Type Department Care Team [...] AM EST Hospital Encounter Non-[place] [address] Arrived documented as of this encounter Visit Diagnoses Not on filedocumented in this encounter Care Teams Evening Anchor Relationship Specialty Start Date End Date Lolly Oliveira MD [address] [place] [address] PCP - General 07/17/13 documented as of this encounter
--- OUTSIDE RECORDS SUMMARY | 2023-12-08 11:05 | XMS_ITS | Encounter Summary ---
[place] [address] Care Team Providers Care Call Center Dispatcher Name Role Phone Lolly Oliveira MD Primary Care Provider [phone] Encounter Details Date Type Department Care Team [...] AM EST Hospital Encounter Non-[place] [address] Arrived documented as of this encounter Visit Diagnoses Not on filedocumented in this encounter Care Teams Call Center Dispatcher Relationship Specialty Start Date End Date Lolly Oliveira MD [address] [place] [address] PCP - General 07/17/13 documented as of this encounter
--- OUTSIDE RECORDS SUMMARY | 2023-12-08 11:05 | XMS_ITS | Encounter Summary ---
Author Organization [facility] [place] [address] Care Team Providers Care Driver/Guide Name Role Phone Lolly Oliveira MD Primary Care Provider [phone] Encounter Details Date Type Department Care Team (Late st Contact Info) Description 10/09/2021 Telephone Dermatology at [address] [address] Nora Meredith LPN Social History [...] [facility]ICAL CENTER Hospital Encounter Non-[place] [address] Arrived documented as of this encounter Visit Diagnoses Not on filedocumented in this encounter Care Teams Driver/Guide Relationship Specialty Start Date End Date Lolly Oliveira MD [address] [place] [address] PCP - General 07/17/13 documented as of this encounter
--- OUTSIDE RECORDS SUMMARY | 2023-12-08 11:05 | XMS_ITS | Encounter Summary ---
[place] [address] Care Team Providers Care Porter Bath Name Role Phone Lolly Oliveira MD Primary Care Provider [phone] Encounter Details Date Type Department Care Team (Late st Contact Info) Description 04/09/2022 Refill Dermatology at [address] [address] Nora Meredith, TIMBER SELECTOR Social History Tobacco Use Types Packs/Day Years [...] [facility] Hospital Encounter Non-[place] [address] Arrived documented as of this encounter Visit Diagnoses Not on filedocumented in this encounter Care Teams Porter Bath Relationship Specialty Start Date End Date Lolly Oliveira MD [address] [place] [address] PCP - General 07/17/13 documented as of this encounter
--- OUTSIDE RECORDS SUMMARY | 2023-12-08 11:05 | XMS_ITS | Encounter Summary ---
Author Organization [facility] [place] [address] Care Team Providers Care Milliner Helper Name Role Phone Lolly Oliveira MD Primary Care Provider [phone] Encounter Details Date Type Department Care Team (Late Contact Info) Description 01/14/2022 Telephone Dermatology at [address] [address] Nora Meredith LPN Social History [...] AM EST Hospital Encounter Non[place] [address] Arrived documented as of this encounter Visit Diagnoses Not on filedocumented in this encounter Care Teams Milliner Helper Relationship Specialty Start Date End Date Lolly Oliveira MD [address] [place] [address] PCP - General 07/17/13 documented as of this encounter
--- OUTSIDE RECORDS SUMMARY | 2023-12-08 11:05 | XMS_ITS | Encounter Summary ---
Author Organization [facility] Address [facility] [place] [address] Care Team Providers Care Skid Adzer Name Role Phone Lolly Oliveira MD Primary Care Provider [phone] Encounter Details Date Type Department Care Team (Late st Contact Info) Description 11/11/2022 Orders Only Cardiology at [address] [phone] Lalit Mcmahon MD [facility] [place] [address] Nonischemic cardiomyopathy Social History Tobacco Use Types Packs/Day Years Used Date Smoking Tobacco: Never Alcohol Use Standard Drinks/Week Comments Not Currently 0 (1 standard drink = 0.6 oz pur e alcohol) [facility] Inpatient Questions Answer Date Recorded [...] st Contact Info) Description 01/16/2024 10:00 AM [facility] Hospital Encounter Non[place] [address] Arrived documented as of this encounter Visit Diagnoses Diagnosis Nonischemic cardiomyopathy Other primary cardiomyopathies documented in this encounter Care Teams Skid Adzer Relationship Specialty Start Date End Date Berrian, Lolly M, MD [address] [place] [address] PCP - General 07/17/13 documented as of this encounter
--- OUTSIDE RECORDS SUMMARY | 2023-12-08 11:05 | XMS_ITS | Encounter Summary ---
[place] [address] Care Team Providers Care Blood Donor Unit Assistant Name Role Phone Lolly Oliveira MD Primary Care Provider [phone] Encounter Details Date Type Department Care Team [...] AM EST Hospital Encounter Non-[place] [address] Arrived documented as of this encounter Visit Diagnoses Not on filedocumented in this encounter Care Teams Blood Donor Unit Assistant Relationship Specialty Start Date End Date Lolly Oliveira MD [address] [place] [address] PCP - General 07/17/13 documented as of this encounter
--- OUTSIDE RECORDS SUMMARY | 2023-12-08 11:05 | XMS_ITS | Encounter Summary ---
Author Organization [facility] [address] Care Team Providers Care Sawdust Drier Name Role Phone Lolly Oliveira MD Primary Care Provider [phone] Reason for Visit * Reason Onset Date Comments Post Procedure Call 07/30/2022 Encounter Details Date Type Department Care Team (Late st Contact Info) Description 07/30/2022 Notes Only Cardiology at [address] [phone] Rosenda Sutton, RN Post Procedure Call Social [...] 07/30/2022 9:59 AM EDTSummary: Post Procedure Call: DEBURRING MACHINE OPERATOR implant EP RN Post-Procedure Note: Date of Follow Up Call: 07/30/2022 Spoke With: Patient Procedure Type (choose all that apply): ICD Performing MIRLANDE Mcmahon Date of Procedure: 07/23/2022 Date of Discharge: 07/24/2022 Follow Up EP Visit Scheduled?: No No Follow Up Visit Reason: Follow up outside Outside Location: [facility] Date of Non EP Visit: 08/12/2022 [...] Note: Follow-up Recommendations for Providers: - s/p DEBURRING MACHINE OPERATOR-D implant - post implant QRS 130 [...] [facility]ALTH CENTER Hospital Encounter [place] [address] Arrived documented as of this encounter Visit Diagnoses Not on filedocumented in this encounter Care Teams Sawdust Drier Relationship Specialty Start Date End Date Lolly Oliveira MD [address] [place] [address] PCP - General 07/17/13 documented as of this encounter
--- OUTSIDE RECORDS SUMMARY | 2023-12-08 11:05 | XMS_ITS | Encounter Summary ---
Author Organization [facility] Address [facility] [place] [address] Care Team Providers Care Pyrotechnic Mixer Name Role Phone Lolly Oliveira MD Primary Care Provider [phone] Reason for Visit * Auth/Cert (Routine) Specialty Diagnoses / Procedures Referred By Contac t Referred To Contact Diagnoses Left bundle-branch block, unspecified Other cardiomyopathies Left bundle branch block [I44.7]Nonischemic cardiomyopathy [I42.8] Procedures PRG CATH PLMT LEFT HEART CATH & ARTS W/INJ & ANGIO IMG S&I ELECTROPHYSIOLOGY PROCEDURE Lalit Mcmahon MD [facility] [place] [address] [facility] Referral ID Status Reason Start Date Expiration Date Visits Re quested Visits Authorized [id number] 1 1 Encounter Details Date Type Department Care Team (Latest Contact Info) Description 07/23/2022 11:39 AM EDT - 07/24/2022 10:23 AM EDT Hospital [place] [phone] Lalit Mcmahon MD [facility] [place] [address] Left bundle branch block; Nonischemic cardiomyopathy; Cardiac resynchronization therapy defibrillator (JEWELRY FACER-D) in place Discharge Disposition: Home Social [...] Luna Mott Patient Age: 71 y.o. Language: Tajik Race: White Ethnicity: Not nor Admit date: 07/23/2022 Discharge date and time: 07/24/22 Attending Physician: Lalit Mcmahon MD Discharge Physician: Lalit Mcmahon MD Follow-up Recommendations for Providers: - s/p JEWELRY FACER-D implant - post implant QRS 130 ms - reviewed post-implant instructions - no medication changes - Follow up in device clinic for wound/device check in ~10 days ([facility]) Inpatient Provider Contact Information: Cardiac Electrophysiology - Discharge Diagnoses (Hospital Problems) and Secondary Diagnoses (Chronic Problems): Active Hospital Problems Diagnosis ??? HFrEF (heart failure with reduced ejection fraction) Resolved Hospital Problems No resolved problems to display. Active Non-Hospital Problems Diagnosis ??? Dermatofibroma ??? Nevus ??? Solar lentigo Operations/Major Procedures: 07/23/22: [facility] JEWELRY FACER-D implant History of Presentation: 71 y.o. female with a history of HFrEF, LBBB, QRS >150, NYHA II who is POD#1 of JEWELRY FACER-D implant ([employer]). Hospital Course: Elective admission for JEWELRY FACER-D implant Admitted post-implant for pain management, [...] (heart failure with reduced ejection fraction) [I50.20] JEWELRY FACER-D implant Admission Condition: good Indication for [...] g Refills: 3 fluticasone propionate 50 mcg/actuation [place], Suspension Commonly known as: Flonase 1 spray [...] F. The office scheduling phone number is [phone]. ARM MOVEMENT RESTRICTIONS POST-IMPLANT - Do not [...] please call the Cardiac ElectrophysiologyTriage Nurse at [phone], option 3. General Instructions None Discharge References/Attachments [...] F. The office scheduling phone number is [phone]. ARM MOVEMENT RESTRICTIONS POST-IMPLANT - Do not [...] please call the Cardiac ElectrophysiologyTriage Nurse at [phone], option 3. documented in this encounter Medications [...] with spacer fluticasone propionate (Flonase) 50 mcg/actuation [place], Suspension 1 spray by Each Nare route [...] Cardiac Electrophysiology Post-Implant Device Interrogation Luna Mott [id number] 07/24/2022 History: Luna Mott is a 71 y.o. female with a history of HFrEF, LBBB, QRS >150, NYHA II who is POD#1 of JEWELRY FACER-D implant ([employer]). Overall feels well this morning. Ready [...] WOB Neuro- A&Ox3 Device Interrogation: Data ?? Metallography Teacher Model # Serial # Generator [employer] [id number] Atrial Lead [employer] 7841 [id number] RV Lead [employer] 0672 063350 LV Lead [employer] [id number] ?? Diagnostics Pacing Mode: DDD 60-130 Underlying Rhythm: [place]ina Atrial Episodes: None Ventricular Episodes: None FINAL PROGRAMMING: Pacing: Mode Lower rate (ppm) Upper rate (ppm) ?? DDD 60 130 VF: Rate (bpm) #Antitachycardia pacing First shock energy (J) ?? 200 Quick convert 41 VT: 170 Monitor only Monitor only ? Battery and Leads Impedances (ohms) Sensing (mV) Thresholds HV RA RV LV RA RV LV RA RV LV 73 [phone] (LVa) 7.7 13.1 >25 0.4V @ 0.4 ms 0.4V @ 0.4 ms 0.5 V @ 1.0 ms POD#1 CXR: All leads in nominal positioning Impression: 71 y.o. female who is s/p JEWELRY FACER-D implant for LBBB, NYHA II, HFrEF. - Appropriate device function post-implant - CXR negative for post-implant complications - Changed sensed AV delay from 130 to 110 Plan: 1. Reviewed standard post-implant discharge instructions (see patient instructions) including arm restrictions, wound care, bathing, and driving 2. No medication changes. 3. Follow up in device clinic for wound/device check in ~10 days ([facility]) Fadi Nunez MD 07/24/2022 Pager: [phone] I met with the patient today and [...] agreement. ? Dr. Lalit Mcmahon, electrophysiology attending ([id number]) * Zaria Wright RN - 07/23/2022 8:28 [...] HF, QRS > 150 ms presents for JEWELRY FACER-D placement. ROS: Denies recent fevers or [...] 0.9) flush 5 mL 5 mL Intravenous [id number] ramos MD ??? sodium chloride 0.9 % [...] HF, QRS > 150 ms presents for JEWELRY FACER-D placement. Backup would be LBBAP lead. Antibiotics: cefazolin Rationales for, intended benefits and potential risk of planned procedures reviewed. The patient indicated understanding and agreement with the plan. Informed consent signed. Procedure checklist completed. Fadi Nunez MD Cardiac Electrophysiology Fellow [facility] Pager [phone] 07/23/2022 I met with the patient today [...] agreement. ? Dr. Lalit Mcmahon, electrophysiology attending ([id number]) documented in this encounter Miscellaneous Notes * Brief Op Note - Lalit Mcmahon MD - 07/23/2022 4:04 PM EDT Brief Operative Note Patient Name: Luna Mott : [id number] MR#: [id number] Case Date: 07/23/2022 Surgeon: Surgeon(s) and Role: [...] AM EST Hospital Encounter Non-Invasive [place] [address] Arrived Scheduled Orders Name Type Priority Associated Diagnoses Orde r Schedule EKG 12 Lead ECG Routine Cardiac resynchronization therapy defibrillator (JEWELRY FACER-D) in place One Time for 1 [...] (Bezet) 522 ms MUSE SYSTEM Calculated R [place] 78 degrees MUSE SYSTEM Calculated T [place] -71 degrees MUSE SYSTEM INTERPRETATION AV dual-paced [...] who have questions please contact the health rn managed care that requested your imaging first. ? Electronically signed by: Kwame Vargas MD, [facility] ([phone]), at 07/24/2022 6:43 AM Narrative 07/24/2022 6:43 [...] patients who have questions please contactthe health rn managed care that requested your imaging first. Electronically signed by: Kwame Vargas MD, [facility]([phone]), at 07/24/2022 6:43 AM Lalit Mcmahon MD IMG DX ORDERABLES * ELECTROPHYSIOLOGY PROCEDURE (07/23/2022 1:11 PM EDT) Anatomical Region Laterality Modality Other Narrative 07/23/2022 4:24 PM EDT Table formatting from the original result was not included. BIVENTRICULAR ICD IMPLANTATION Washer Cutter: Lalit Mcmahon MD Fellow: Fadi Nunez MD [...] lateral branch of the CS in the INDONESIAN view. This branch was cannulated with a [...] the entire procedure. LEAD AND GENERATOR DATA: Metallography Teacher Model # Serial # Generator [employer] [id number] Atrial Lead [employer] 7841 [id number] RV Lead [employer] 0672 879132 LV Lead [employer] 4674 [id number] PACE/SENSE DATA: Sensed wave (mV) Threshold (V) [...] (cGycm2) 300 CONCLUSIONS: Successful implantation of a [employer] biventricular ICD for primary prevention and treatment of symptoms related to congestive heart failure. Follow up in EP clinic in 1-2 months. Procedures performed: new ICD system ( cpt 02104-Q2); implant LV lead at time of ICD insertion (cpt 14227) I have read, edited and approve of this report: Lalit Mcmahon MD S Cardiac Electrophysiology 07/23/2022 4:22 PM Procedure Note Lalit Mcmahon MD - 07/23/2022 BIVENTRICULAR ICD IMPLANTATION Washer Cutter: Lalit Mcmahon MD Fellow: Fadi Nunez MD [...] appropriate lateralbranch of the CS in the INDONESIAN view. This branch was cannulated with a [...] in the entireprocedure. LEAD AND GENERATOR DATA: Metallography Teacher Model # Serial # Generator [employer] G447 [id number] Atrial Lead [employer] 7841 [id number] RV Lead [employer] 0672 665708 LV Lead [employer] 4674 175950 PACE/SENSE DATA: Sensed wave (mV) Threshold (V) [...] (cGycm2) 300 CONCLUSIONS: Successful implantation of a [employer] biventricular ICD forprimary prevention and treatment of symptoms related to congestive heartfailure. Follow up in EP clinic in 1-2 months. Procedures performed: new ICD system ( cpt 86275-W6); implant LV lead attime of ICD insertion (cpt 68979) I have read, edited and approve of this report: Lalit Mcmahon MD [facility] Cardiac Electrophysiology 07/23/2022 4:22 PM Lalit Mcmahon MD EP PROCEDURE ORDERAB LES * POCT Glucose (07/23/2022 12:54 PM EDT) Glucose, POC 83 65 - 199 mg/dL [facility] Comment: Supplemental ranges: <140 mg/dL before meals <180 mg/dL all other times of the day Blood 07/23/2022 12:5 4 PM EDT 07/23/2022 12:54 PM EDT Lalit Mcmahon MD POINT OF CARE TEST O RDERABLES Performing Organization Address [facility] Co de Phone Number [facility] [place] [address] * EKG 12 Lead (07/23/2022 12:33 PM EDT) Ventricular rate 72 BPM MUSE SYSTEM Atrial Rate 72 BPM MUSE SYSTEM P-R Interval 158 ms MUSE SYSTEM QRS Duration 176 ms MUSE SYSTEM Q-T Interval 458 ms MUSE SYSTEM QTC Calculated (Bezet) 501 ms MUSE SYSTEM Calculated P [place] 34 degrees MUSE SYSTEM Calculated R [place] 12 degrees MUSE SYSTEM Calculated T [place] -173 degrees MUSE SYSTEM INTERPRETATION Normal sinus rhythm Left bundle branch block Abnormal ECG No previous ECGs available Confirmed by MD Salome, Lalit ([id number]) on 07/23/2022 1:19:03 PM MUSE SYSTEM 07/23/2022 12:3 3 PM EDT 07/23/2022 1:19 PM EDT Lalit Mcmahon MD ECG ORDERABLES Performing Organization Address [facility] de Phone Number MUSE SYSTEM * Differential, Automated (07/23/2022 11:55 AM EDT) Neutrophil % 62.6 % [facility] Neutrophil Absolute 4.14 1.70 - 6.10 x10(3)/[facility] Lymph % 27.0 % [facility] Lymphocytes Abs 1.8 0.9 - 3.2 x10(3)/[facility] Monocyte % 7.3 % [facility] Monocyte Abs 0.5 0.3 - 0.9 x10(3)/[facility] Eos % 2.3 % [facility] Eosinophils Abs 0.2 0.0 - 0.4 x10(3)/[facility] Basophil % 0.6 % [facility] Baso Absolute 0.0 0.0 - 0.1 x10(3)/[facility] Immature Gran % 0.20 % [facility] Comment: Immature granulocytes(IG's)percentage and absolute [...] Lab Lalit Mcmahon MD HEMATOLOGY ORDERABLE S [facility] [place] [address] * Hemogram (07/23/2022 11:55 AM EDT) White Blood Cell 6.6 4.0 - 9.5 x10(3)/[facility] Red Blood Cell 4.50 4.00 - 5.21 x10(6)/[facility] Hemoglobin 13.7 11.7 - 15.5 g/dL [facility] Hematocrit 42.5 35.7 - 45.8 % [facility] Mean Cell Volume 94.4 82.6 - 94.4 fL [facility] Mean Cell Hemoglobin 30.4 27.1 - 32.0 pg [facility] Mean Cell Hemoglobin Concentration 32.2 31.7 - 35.0 g/dL [facility] Platelet 193 145 - 357 x10(3)/[facility] RDW Standard Deviation 45.5 37.0 - 46.0 fL [facility] RDW coefficient of variation 13.2 11.5 - 14.1 % [facility] Mean Platelet Volume 9.5 7.6 - 12.9 fL [facility] NRBC% auto 0.0 % [facility] NRBC Absolute 0.000 0.000 - 0.000 x10(3)/mcL [facility] Blood 07/23/2022 11:5 5 AM EDT 07/23/2022 12:07 PM EDT Narrative Resulting Agency Comment Spec In Lab Lalit Mcmahon MD HEMATOLOGY ORDERABLE S [facility] [address] [place] [address] * (ABNORMAL) BMP w/fasting Glucose (07/23/2022 11:55 AM EDT) Glucose Fasting 110(H) 65 - 99 mg/dL [facility] Comment: ?Fasting* Glucose Interpretive Criteria [...] of Diabetes Mellitus, Position Statement from the [place] [employer]. ??Diabetes Care, Volume 33, Supplement 1, Mar 2009 Blood Urea Nitrogen 23(H) 8 - 18 mg/dL [facility] Creatinine 1.07 0.70 - 1.20 mg/dL [facility] Sodium 141 135 - 145 mmol/L [facility] Potassium 4.8 3.5 - 5.0 mmol/L [facility] Comment: Please note: ??Patients with WBC >100,000 may have falsely elevated Potassium levels. ??For accurate Potassium quantification in these patients send serum separator tube (gold top) for subsequent determinations. ??Contact the Clinical Chemistry Laboratory if there are any questions. Chloride 106 98 - 107 mmol/L [facility] Carbon Dioxide 26 22 - 31 mmol/L [facility] Anion Gap 9 5 - 15 mmol/L [facility] Calcium 9.7 8.5 - 10.5 mg/dL [facility] Est Glomerular Filtration Rate 55(L) >=60 mL/min/1. 73 m?? [facility] Comment: This patient's estimated GFR [...] Mcmahon MD CHEMISTRY ORDERABLES Performing Organization Address [facility] Co de Phone Number [facility] [place] [address] * Prothrombin Time (07/23/2022 11:55 AM EDT) Prothrombin Time 11.7 9.4 - 12.5 sec [facility] International Normalization Ratio 1.0 [facility] Comment: An INR <2.0 indicates [...] Narrative Resulting Agency Comment Spec In Lab Lailt Mcmahon MD HEMATOLOGY ORDERABLE S Performing Organization Address [facility] Co de Phone Number [facility] [place] [address] documented in this encounter Visit Diagnoses Diagnosis HFrEF (heart failure with reduced ejection fraction)- Primary Left bundle branch block Other left bundle branch block Nonischemic cardiomyopathy Other primary cardiomyopathies Cardiac resynchronization therapy defibrillator (JEWELRY FACER-D) in place Left bundle branch block [...] Routine documented in this encounter Care Teams Pyrotechnic Mixer Relationship Specialty Start Date End Date Lolly Oliveira MD [address] [place] [address] PCP - General 07/17/13 documented as of this encounter
--- OUTSIDE RECORDS SUMMARY | 2023-12-08 11:05 | XMS_ITS | Encounter Summary ---
Author Organization [facility] [place] [address] Care Team Providers Care Chief Quality Officer Name Role Phone Lolly Oliveira MD Primary Care Provider [phone] Encounter Details Date Type Department Care Team (Latest Contact Info) Description 10/23/2022 10:00 AM EDT - 10/23/2022 11:59 PM EDT Hospital Encounter [place] [phone] Discharge Disposition: Home Social History Tobacco Use [...] with spacer fluticasone propionate (Flonase) 50 mcg/actuation [place], Suspension 1 spray by Each Nare route [...] [facility] Hospital Encounter Non-[place] [address] Arrived documented as of this [...] filedocumented in this encounter Care Teams Chief Quality Officer Relationship Specialty Start Date End Date Lolly Oliveira MD [address] [place] [address] PCP - General 07/17/13 documented as of this encounter
--- OUTSIDE RECORDS SUMMARY | 2023-12-08 11:05 | XMS_ITS | Encounter Summary ---
Author Organization [facility] [place] [address] Care Team Providers Care Director Of Surgery Name Role Phone Lolly Oliveira MD Primary Care Provider [phone] Reason for Visit * Reason Comments Skin Check Encounter Details Date Type Department Care Team (Late st Contact Info) Description 11/23/2014 10:00 AM EDT Office Visit Dermatology at [address] [address] Clay Ramírez MD [address] [facility] [place] [address] Dermatofibroma; Nevus; Solar lentigo Discharge Disposition: Home [...] [facility] Hospital Encounter Non-[place] [address] Arrived documented as of this encounter Visit Diagnoses Diagnosis Dermatofibroma Benign neoplasm of skin, site unspecified Nevus Benign neoplasm of skin, site unspecified Solar lentigo Other dyschromia documented in this encounter Care Teams Director Of Surgery Relationship Specialty Start Date End Date Lolly Oliveira MD [address] [place] [address] PCP - General 07/17/13 documented as of this encounter
--- OUTSIDE RECORDS SUMMARY | 2023-12-08 11:05 | XMS_ITS | Encounter Summary ---
Author Organization [facility] Address [facility] [address] Care Team Providers Care Labor Training Manager Name Role Phone Lolly Oliveira MD Primary Care Provider [phone] Reason for Referral * Diagnostic Test (Routine) - Closed Specialty Diagnoses / Procedures Referred By Contkoki t Referred To Contact Cardiology Diagnoses Nonischemic cardiomyopathy Biventricular ICD (implantable cardioverter-defibrillator) in place Procedures Echocardiogram Transthoracic Lalit Mcmahon MD [facility] [place] [address] Referral ID Status Reason Start Date Expiration Date V isits Requested Visits Authorized [id number] Closed Specialty Service Requested 03/15/2023 09/11/2023 1 1 Encounter Details Date Type Department Care Team (Late st Contact Info) Description 03/15/2023 Orders Only Cardiology at [address] [address] Lalit Mcmahon MD [facility] [place] [address] Nonischemic cardiomyopathy; Biventricular ICD (implantable cardioverter-defibrill ator) in place Social History Tobacco Use Types Packs/Day Years Used Date Smoking Tobacco: Never Alcohol Use Standard Drinks/Week Comments Not Currently 0 (1 standard drink = 0.6 oz pur e alcohol) [facility] Inpatient Questions Answer Date Recorded [...] AM EST Hospital Encounter Non[place] [address] Arrived Scheduled Orders Name Type Priority Associated Diagnoses Order Schedule Echocardiogram Transthoracic Echocardiography Routine Nonischemic cardiomyopathy Biventricular ICD (implantable cardioverter-defibr illator) in place Expected: 05/05/2023, Expires: 11/04/2023 documented as of this encounter Visit Diagnoses Diagnosis Nonischemic cardiomyopathy Other primary cardiomyopathies Biventricular ICD (implantable cardioverter-defibrillator) in place documented in this encounter Care Teams Labor Training Manager Relationship Specialty Start Date End Date Lolly Oliveira MD [address] [place] [address] PCP - General 07/17/13 documented as of this encounter
--- OUTSIDE RECORDS SUMMARY | 2023-12-08 11:05 | XMS_ITS | Encounter Summary ---
Author Organization [facility] [place] [address] Care Team Providers Care Silver Miner Name Role Phone Lolly Oliveira MD Primary Care Provider [phone] Encounter Details Date Type Department Care Team (Late st Contact Info) Description 03/15/2023 Telephone Cardiology at [address] [phone] Saranya Ma Social History Tobacco Use Types [...] to have an echo done at [facility] prior to her appt withdem there on 05/12/23. Message sent to Dr. Mcmahon asking him to put order in if he would like her to have this done. Saranya Ma Sr. Clinical Procedure [place]/Train Planner documented in this encounter Plan of Treatment Upcoming Encounters Date Type Department Care Team (Late st Contact Info) Description 01/16/2024 10:00 AM EST Hospital Encounter Non-Invasive [place] [address] Arrived documented as of this encounter Visit Diagnoses Not on filedocumented in this encounter Care Teams Silver Miner Relationship Specialty Start Date End Date Lolly Oliveira MD [address] [place] [address] PCP - General 07/17/13 documented as of this encounter
--- OUTSIDE RECORDS SUMMARY | 2023-12-08 11:05 | XMS_ITS | Encounter Summary ---
Author Organization [facility] [place] [address] Care Team Providers Care Virginia Line Attendant Name Role Phone Lolly Oliveira MD Primary Care Provider [phone] Encounter Details Date Type Department Care Team (Late st Contact Info) Description 04/01/2021 3:30 PM EST Office Visit Dermatology at [address] [phone] Clay Ramírez MD [address] [place] [address] Psoriasis, guttate Social History Tobacco Use Types [...] clinic here in 2 months CC: JAMESON Curyr MD documented in this encounter Plan of Treatment Upcoming Encounters Date Type Department Care Team (Late st Contact Info) Description 01/16/2024 10:00 AM EST Hospital Encounter [place] [address] Arrived documented as of this encounter Visit Diagnoses Diagnosis Psoriasis, guttate Other psoriasis documented in this encounter Care Teams Virginia Line Attendant Relationship Specialty Start Date End Date Lolly Oliveira MD [address] [place] [address] PCP - General 07/17/13 documented as of this encounter
--- OUTSIDE RECORDS SUMMARY | 2023-12-08 11:05 | XMS_ITS | Encounter Summary ---
Author Organization [facility] [place] [address] Care Team Providers Care Licensed Pesticide Applicator Name Role Phone Lolly Oliveira MD Primary Care Provider [phone] Encounter Details Date Type Department Care Team (Latest Contact Info) Description 07/18/2013 [place] [phone] Alia Fraire MD [facility] [place] [address] Mammographic microcalcification (Primary Dx) Social History Tobacco [...] AM EST Hospital Encounter Non-[place] [phone] Arrived documented as of this encounter Results [...] are present on specimen digital X-ray. A CS Discork Eviva-Stereo 13 Cylinder marker clip was placed. [...] calcifications are present on specimendigital X-ray. A CS Discork Eviva-Stereo 13 Cylinder marker clip was placed. [...] does not layer and, therefore, are not automotive leasing sales representative of milk of calcium. Again, [...] does not layer and, therefore, are not automotive leasing sales representative of milk of calcium. Again, these have an amorphous andpunctate appearance and remain indeterminate. Stereotactic guided biopsy isrecommended. Alia Fraire MD IMG MAMMO ORDERABLES documented in this encounter Visit Diagnoses Diagnosis Mammographic microcalcification- Primary Mammographic microcalcification Mammographic microcalcification Mammographic microcalcification Mammographic microcalcification documented in this encounter Care Teams Licensed Pesticide Applicator Relationship Specialty Start Date End Date Lolly Oliveira MD [address] [place] [address] PCP - General 07/17/13 documented as of this encounter
--- OUTSIDE RECORDS SUMMARY | 2023-12-08 11:05 | XMS_ITS | Encounter Summary ---
Author Organization Formerly [facility] [place] [address] Care Team Providers Care Massage Operator Name Role Phone Lolly Oliveira MD Primary Care Provider [phone] Encounter Details Date Type Department Care Team (Latest Contact Info) Description 04/21/2023 10:00 AM EST - 04/21/2023 11:59 PM EST Hospital Encounter [place] [phone] Discharge Disposition: Home Social History Tobacco Use [...] with spacer fluticasone propionate (Flonase) 50 mcg/actuation [place], Suspension 1 spray by Each Nare route [...] AM EST Hospital Encounter Non[place] [address] Arrived documented as of this [...] on filedocumented in this encounter Care Teams Massage Operator Relationship Specialty Start Date End Date Lolly Oliveira MD [address] [place] [address] PCP - General 07/17/13 documented as of this encounter
--- OUTSIDE RECORDS SUMMARY | 2023-12-08 11:05 | XMS_ITS | Encounter Summary ---
Author Organization [facility] [place] [address] Care Team Providers Care Rehabilitation Director Name Role Phone Lolly Oliveira MD Primary Care Provider [phone] Encounter Details Date Type Department Care Team (Late st Contact Info) Description 07/26/2013 [place] [phone] Eleno Christian MD [facility] [place] [address] Social History Tobacco Use Types Packs/Day Years [...] AM EST Hospital Encounter Non[place] [address] Arrived documented as of this encounter Visit Diagnoses Not on filedocumented in this encounter Care Teams Rehabilitation Director Relationship Specialty Start Date End Date Lolly Oliveira MD [address] [place] [address] PCP - General 07/17/13 documented as of this encounter
--- OUTSIDE RECORDS SUMMARY | 2023-12-08 11:05 | XMS_ITS | Encounter Summary ---
Author Organization [facility] [place] [address] Care Team Providers Care Log Chipper Operator Name Role Phone Lolly Oliveira MD Primary Care Provider [phone] Reason for Visit * Auth/Cert (Routine) Specialty Diagnoses / Procedures Referred By Contac t Referred To Contact Diagnoses Left bundle-branch block, unspecified Other cardiomyopathies Left bundle branch block [I44.7]Nonischemic cardiomyopathy [I42.8] Procedures PRG CATH PLMT LEFT HEART CATH & ARTS W/INJ & ANGIO IMG S&I ELECTROPHYSIOLOGY PROCEDURE Lalit Mcmahon MD [facility] [address] [facility] Referral ID Status Reason Start Date Expiration Date Visits Re quested Visits Authorized [id number] 1 1 Encounter Details Date Type Department Care Team (Late st Contact Info) Description 07/23/2022 1:00 PM EDT - 07/23/2022 5:30 PM EDT Surgery [place] [address] Lalit Mcmahon MD [facility] [place] [address] ELECTROPHYSIOLOGY PROCEDURE Social History Tobacco Use Types [...] Luna Mott Patient Age: 71 y.o. Language: Turkmen Race: White Ethnicity: Not nor Admit date: 07/23/2022 Discharge date and time: 07/24/22 Attending Physician: Lalit Mcmahon MD Discharge Physician: Lalit Mcmahon MD Follow-up Recommendations for Providers: - s/p ACID PAINTER-D implant - post implant QRS 130 [...] Solar lentigo Operations/Major Procedures: 07/23/22: [facility] ACID PAINTER-D implant History of Presentation: 71 y.o. female with a history of HFrEF, LBBB, QRS >150, NYHA II who is POD#1 of ACID PAINTER-D implant (Zap Sci). Hospital Course: Elective admission for ACID PAINTER-D implant Admitted post-implant for pain management, [...] (heart failure with reduced ejection fraction) [I50.20] ACID PAINTER-D implant Admission Condition: good Indication for [...] g Refills: 3 fluticasone propionate 50 mcg/actuation [place], Suspension Commonly known as: Flonase 1 spray [...] incision. Make sure to use a cloth washer operator (such as a towel) in between [...] F. The office scheduling phone number is [phone]. ARM MOVEMENT RESTRICTIONS POST-IMPLANT - Do not [...] please call the Cardiac ElectrophysiologyTriage Nurse at [phone], option 3. General Instructions None Discharge References/Attachments [...] incision. Make sure to use a cloth washer operator (such as a towel) in between [...] F. The office scheduling phone number is [phone]. ARM MOVEMENT RESTRICTIONS POST-IMPLANT - Do not [...] please call the Cardiac ElectrophysiologyTriage Nurse at [phone], option 3. documented in this encounter Medications [...] with spacer fluticasone propionate (Flonase) 50 mcg/actuation [place], Suspension 1 spray by Each Nare route [...] Cardiac Electrophysiology Post-Implant Device Interrogation Luna Mott [id number] 07/24/2022 History: Luna Mott is a 71 y.o. female with a history of HFrEF, LBBB, QRS >150, NYHA II who is POD#1 of ACID PAINTER-D implant (Zap Sci). Overall feels well this morning. Ready [...] WOB Neuro- A&Ox3 Device Interrogation: Data ?? Distribution Lead Model # Serial # Generator [employer] [id number] Atrial Lead [employer] [id number] [id number] RV Lead [employer] 0672 [id number] LV Lead [employer] 4674 [id number] ?? Diagnostics Pacing Mode: DDD 60-130 Underlying Rhythm: [place] Atrial Episodes: None Ventricular Episodes: None FINAL PROGRAMMING: Pacing: Mode Lower rate (ppm) Upper rate (ppm) ?? DDD 60 130 VF: Rate (bpm) #Antitachycardia pacing First shock energy (J) ?? 200 Quick convert 41 VT: 170 Monitor only Monitor only ? Battery and Leads Impedances (ohms) Sensing (mV) Thresholds HV RA RV LV RA RV LV RA RV LV 73 795 663 9033 (LVa) 7.7 13.1 >25 0.4V @ 0.4 ms 0.4V @ 0.4 ms 0.5 V @ 1.0 ms POD#1 CXR: All leads in nominal positioning Impression: 71 y.o. female who is s/p ACID PAINTER-D implant for LBBB, NYHA II, HFrEF. [...] [facility]) Fadi Nunez MD 07/24/2022 Pager: [phone] I met with the patient today and [...] agreement. ? Dr. Lalit Mcmahon, electrophysiology attending ([id number]) * Zaria Wright RN - 07/23/2022 8:28 [...] HF, QRS > 150 ms presents for ACID PAINTER-D placement. ROS: Denies recent fevers or [...] 0.9) flush 5 mL 5 mL Intravenous [id number] ramos MD ??? sodium chloride 0.9 % [...] HF, QRS > 150 ms presents for ACID PAINTER-D placement. Backup would be LBBAP lead. Antibiotics: cefazolin Rationales for, intended benefits and potential risk of planned procedures reviewed. The patient indicated understanding and agreement with the plan. Informed consent signed. Procedure checklist completed. Fadi Nunez MD Cardiac Electrophysiology Fellow [facility] Pager [phone] 07/23/2022 I met with the patient today [...] agreement. ? Dr. Lalit Mcmahon, electrophysiology attending ([id number]) documented in this encounter Miscellaneous Notes * Brief Op Note - Lalit Mcmahon MD - 07/23/2022 4:04 PM EDT Brief Operative Note Patient Name: Luna Mott : [id number] MR#: [id number] Case Date: 07/23/2022 Surgeon: Surgeon(s) and Role: [...] AM EST Hospital Encounter [place] [address] Arrived Scheduled Orders Name Type Priority Associated Diagnoses Orde r Schedule EKG 12 Lead ECG Routine Cardiac resynchronization therapy defibrillator (ACID PAINTER-D) in place One Time for 1 [...] who have questions please contact the health childcare administrator that requested your imaging first. ? Electronically signed by: Kwame Vargas MD, [facility] ([phone]), at 07/24/2022 6:43 AM Narrative 07/24/2022 6:43 [...] patients who have questions please contactthe health childcare administrator that requested your imaging first. Lalit Mcmahon MD IMG DX ORDERABLES * ELECTROPHYSIOLOGY PROCEDURE (07/23/2022 1:11 PM EDT) Anatomical Region Laterality Modality Other Narrative 07/23/2022 4:24 PM EDT Table formatting from the original result was not included. BIVENTRICULAR ICD IMPLANTATION Protective Signal Operator: Lalit Mcmahon MD Fellow: Fadi Nunez [...] lateral branch of the CS in the ETHIOPIAN view. This branch was cannulated with a [...] the entire procedure. LEAD AND GENERATOR DATA: Distribution Lead Model # Serial # Generator [employer] [id number] Atrial Lead [employer] [id number] [id number] RV Lead [employer] 0672 [id number] LV Lead [employer] 4674 [id number] PACE/SENSE DATA: Sensed wave (mV) Threshold (V) [...] (cGycm2) 300 CONCLUSIONS: Successful implantation of a [employer] biventricular ICD for primary prevention and treatment of symptoms related to congestive heart failure. Follow up in EP clinic in 1-2 months. Procedures performed: new ICD system ( cpt 65556-M4); implant LV lead at time of ICD insertion (cpt 42184) I have read, edited and approve of this report: Lalit Mcmahon MD [facility] Cardiac Electrophysiology 07/23/2022 4:22 PM Procedure Note Lalit Mcmahon MD - 07/23/2022 BIVENTRICULAR ICD IMPLANTATION Protective Signal Operator: Lalit Mcmahon MD Fellow: Fadi Nunez [...] appropriate lateralbranch of the CS in the ETHIOPIAN view. This branch was cannulated with a [...] in the entireprocedure. LEAD AND GENERATOR DATA: Distribution Lead Model # Serial # Generator [employer] [id number] Atrial Lead [employer] [id number] [id number] RV Lead [employer] 0672 [id number] LV Lead [employer] 4674 [id number] PACE/SENSE DATA: Sensed wave (mV) Threshold (V) [...] (cGycm2) 300 CONCLUSIONS: Successful implantation of a [employer] biventricular ICD forprimary prevention and treatment of symptoms related to congestive heartfailure. Follow up in EP clinic in 1-2 months. Procedures performed: new ICD system ( cpt 10223-F7); implant LV lead attime of ICD insertion (cpt 11178) I have read, edited and approve of this report: Lalit Mcmahon MD S Cardiac Electrophysiology 07/23/2022 4:22 PM Lalit Mcmahon MD EP PROCEDURE ORDERAB LES * POCT Glucose (07/23/2022 12:54 PM EDT) [facility] Signature Glucose, POC 83 65 - 199 mg/dL [facility] Comment: Supplemental ranges: <140 mg/dL before meals <180 mg/dL all other times of the day Blood 07/23/2022 12:5 4 PM EDT 07/23/2022 12:54 PM EDT Lalit Mcmahon MD POINT OF CARE TEST O RDERABLES Performing Organization Address City/[facility]/ZIP Co de Phone Number [facility] [place] [address] * EKG 12 Lead (07/23/2022 12:33 PM [...] Mcmahon MD ECG ORDERABLES Performing Organization Address [facility]/ZIP Co de Phone Number MUSE SYSTEM * Differential, Automated (07/23/2022 11:55 AM EDT) Neutrophil % 62.6 % [facility] Neutrophil Absolute 4.14 1.70 - 6.10 x10(3)/[facility] Lymph % 27.0 % [facility] Lymphocytes Abs 1.8 0.9 - 3.2 x10(3)/[facility] Monocyte % 7.3 % [facility] Monocyte Abs 0.5 0.3 - 0.9 x10(3)/[facility] Eos % 2.3 % [facility] Eosinophils Abs 0.2 0.0 - 0.4 x10(3)/[facility] Basophil % 0.6 % [facility] Baso Absolute 0.0 0.0 - 0.1 x10(3)/[facility] Immature Gran % 0.20 % [facility] Comment: Immature granulocytes(IG's)percentage and absolute count will include metamyelocytes, myelocytes, and promyelocytes. Blood smears from CBCs yielding IG's will be scanned manually for concordance. If this scan disagrees with the automated IG or if promyelocytes are noted, a manual differential will be performed. Immature Gran Absolute 0.01 0.00 - 0.04 x10(3)/[facility] Blood 07/23/2022 11:5 5 AM EDT 07/23/2022 12:07 PM EDT Narrative Resulting Agency Comment Spec In Lab Lalit Mcmahon MD HEMATOLOGY ORDERABLE S [facility] [place] [address] * Hemogram (07/23/2022 11:55 AM EDT) White Blood Cell 6.6 4.0 - 9.5 x10(3)/[facility] Red Blood Cell 4.50 4.00 - 5.21 x10(6)/[facility] Hemoglobin 13.7 11.7 - 15.5 g/dL [facility] Hematocrit 42.5 35.7 - 45.8 % [facility] Mean Cell Volume 94.4 82.6 - 94.4 fL [facility] Mean Cell Hemoglobin 30.4 27.1 - 32.0 pg [facility] Mean Cell Hemoglobin Concentration 32.2 31.7 - 35.0 g/dL [facility] Platelet 193 145 - 357 x10(3)/[facility] RDW Standard Deviation 45.5 37.0 - 46.0 fL [facility] RDW coefficient of variation 13.2 11.5 - 14.1 % [facility] Mean Platelet Volume 9.5 7.6 - 12.9 fL [facility] NRBC% auto 0.0 % [facility] NRBC Absolute 0.000 0.000 - 0.000 x10(3)/[facility] Blood 07/23/2022 11:5 5 AM EDT 07/23/2022 12:07 PM EDT Narrative Resulting Agency Comment Spec In Lab Lalit Mcmahon MD HEMATOLOGY ORDERABLE S [facility] [place] [address] * (ABNORMAL) BMP w/fasting Glucose (07/23/2022 11:55 AM EDT) Glucose Fasting 110(H) 65 - 99 mg/dL [facility] Comment: ?Fasting* Glucose Interpretive Criteria [...] of Diabetes Mellitus, Position Statement from the [place] [employer]. ??Diabetes Care, Volume 33, Supplement 1, Mar 2009 Blood Urea Nitrogen 23(H) 8 - 18 mg/dL [facility] Creatinine 1.07 0.70 - 1.20 mg/dL [facility] Sodium 141 135 - 145 mmol/L [facility] Potassium 4.8 3.5 - 5.0 mmol/L [facility] Comment: Please note: ??Patients with [...] Anion Gap 9 5 - 15 mmol/L [facility] Calcium 9.7 8.5 - 10.5 mg/dL [facility] Est Glomerular Filtration Rate 55(L) [...] Mcmahon MD CHEMISTRY ORDERABLES Performing Organization Address [facility] Co de Phone Number [facility] [place] [address] * Prothrombin Time (07/23/2022 11:55 AM EDT) Prothrombin Time 11.7 9.4 - 12.5 sec [facility] International Normalization Ratio 1.0 [facility] Comment: An INR <2.0 indicates [...] S Performing Organization Address City/[facility] Co de Phone Number [facility] [place] [address] documented in this encounter Visit Diagnoses Diagnosis HFrEF (heart failure with reduced ejection fraction)- Primary Left bundle branch block Other left bundle branch block Nonischemic cardiomyopathy Other primary cardiomyopathies Cardiac resynchronization therapy defibrillator (ACID PAINTER-D) in place Left bundle branch block [...] documented in this encounter Care Teams Log Chipper Operator Relationship Specialty Start Date End Date Lolly Oliveira MD [address] [place] [address] PCP - General 07/17/13 documented as of this encounter
--- OUTSIDE RECORDS SUMMARY | 2023-12-08 11:05 | XMS_ITS | Encounter Summary ---
Author Organization [facility] Address [facility] [place] [address] Care Team Providers Care Attic Blower Name Role Phone Lolly Oliveira MD Primary Care Provider [phone] Encounter Details Date Type Department Care Team (Late st Contact Info) Description 07/16/2022 Telephone Cardiology at [address] [phone] Lalit Mcmahon MD [facility] [place] [address] Social History Tobacco Use Types Packs/Day Years [...] her nonischemic cardiomyopathy. She is scheduled for MEDIA REPORTER-D implantation next week and looks forward to the procedure. We will see each other next week. Lalit Mcmahon MD [facility] Cardiac Electrophysiology 07/16/2022 8:52 AM documented in this encounter Plan of Treatment Upcoming Encounters Date Type Department Care Team (Late st Contact Info) Description 01/16/2024 10:00 AM EST Hospital Encounter [place] [address] Arrived documented as of this encounter Visit Diagnoses Not on filedocumented in this encounter Care Teams Attic Blower Relationship Specialty Start Date End Date Lolly Oliveira MD [address] [place] [address] PCP - General 07/17/13 documented as of this encounter
--- OUTSIDE RECORDS SUMMARY | 2023-12-08 11:05 | XMS_ITS | Encounter Summary ---
Author Organization [facility] [place] [address] Care Team Providers Care Para Machine Operator Name Role Phone Lolly Oliveira MD Primary Care Provider Encounter Details Date Type Department Care Team (Latest Contact Info) Description 07/26/2013 9:45 AM EDT - 07/26/2013 11:59 PM EDT Hospital En[place] [address] Mammographic microcalcification Social History Tobacco Use Types [...] AM EST Hospital Encounter Non-[place] [address] Arrived documented as of this encounter Procedures [...] microcalcification documented in this encounter Care Teams Para Machine Operator Relationship Specialty Start Date End Date Lolly Oliveira MD [address] [place] [address] PCP - General 07/17/13 documented as of this encounter
--- OUTSIDE RECORDS SUMMARY | 2023-12-08 11:05 | XMS_ITS | Encounter Summary ---
Author Organization [facility] [place] [address] Care Team Providers Care Inside Account Representative Name Role Phone Lolly Oliveira MD Primary Care Provider [phone] Reason for Visit * Reason Comments Psoriasis Encounter Details Date Type Department Care Team (Late st Contact Info) Description 04/09/2022 1:45 PM EST Office Visit Dermatology at [address] [address] Clay Ramírez MD [address] [facility] [place] [address] Psoriasis, guttate Social History Tobacco Use Types [...] AM EST Hospital Encounter Non-Invasive [place] [address] Arrived documented as of this encounter Visit Diagnoses Diagnosis Psoriasis, guttate Other psoriasis documented in this encounter Care Teams Inside Account Representative Relationship Specialty Start Date End Date Lolly Oliveira MD [address] [place] [address] PCP - General 07/17/13 documented as of this encounter
--- OUTSIDE RECORDS SUMMARY | 2023-12-08 11:05 | XMS_ITS | Encounter Summary ---
Author Organization [facility] Address [facility] [place] [address] Care Team Providers Care Manufacturing Chief Engineer Name Role Phone Lolly Oliveira MD Primary Care Provider [phone] Reason for Visit * Auth/Cert (Routine) Specialty Diagnoses / Procedures Referred By Contac t Referred To Contact Diagnoses Left bundle-branch block, unspecified Other cardiomyopathies Left bundle branch block [I44.7]Nonischemic cardiomyopathy [I42.8] Procedures PRG CATH PLMT LEFT HEART CATH & ARTS W/INJ & ANGIO IMG S&I ELECTROPHYSIOLOGY PROCEDURE Lalit Mcmahon MD [facility] [place] [address] [facility] Referral ID Status Reason Start Date Expiration Date Visits Re quested Visits Authorized [id number] 1 1 Encounter Details Date Type Department Care Team (Late st Contact Info) Description 07/23/2022 1:08 PM EDT Anesthesia Event Electrophys[place] [address] Monae Gonzalez MD [facility] [address] Maria Elena Snyder CRNA [facility] [place] [address] Anesthesia Record Procedure Summary Procedure Name Responsible [...] 1307; median cubital vein (antecubital fossa), right; bdwb-fag-ujtjna catheter system; Anatomical Landmarks; 20 gauge; 07/24/22; [...] 1343; metacarpal vein (top of hand), left; xcgf-vyk-hjqhcw catheter system; Anatomical Landmarks; US Not Used; [...] Procedure Summary Date: 07/23/22 Room / Location: [facility] A-LAB ROOM 3 / [facility] EP LABS Anesthesia Start: 1308 Anesthesia Stop: 1633 Procedure: ELECTROPHYSIOLOGY PROCEDURE (Left) Diagnosis: Left bundle branch block Nonischemic cardiomyopathy (Left bundle branch block [I44.7]Nonischemic cardiomyopathy [I42.8]) Providers: Lalit Mcmahon MD Responsible Provider: Monae Gonzalez MD Anesthesia Type: general ASA Status: 4 All Anesthesia Providers: Anesthesiologist: Monae Gonzalez MD; Dominique Sen MD HEADEND TECHNICIAN: Maria Elena Snyder CRNA Vitals Value Taken Time BP 131/46 07/23/22 1700 Temp 36.7 ??C (98.1 ??F) 07/23/22 1627 Pulse 67 07/23/22 1703 Resp 14 07/23/22 1703 SpO2 98 % 07/23/22 1703 Pain Level Vitals shown include unvalidated device data. Patient Location: PACU/[facility] Level of Consciousness: Conscious but Sleepy [...] and Nonischemic CM (EF 15-20%)who presents for HAND GLUER AND SLICER-D. No prior anesthetic records. Pt states that [...] daughter/son and patient who. Plan discussed with HEADEND TECHNICIAN. Anesthesia Screening documented in this encounter Plan of Treatment Upcoming Encounters Date Type Department Care Team (Late st Contact Info) Description 01/16/2024 10:00 AM [facility] Hospital Encounter Non-[place] [address] Arrived documented as of this [...] mg documented in this encounter Care Teams Manufacturing Chief Engineer Relationship Specialty Start Date End Date Lolly Oliveira MD [address] [place] [address] PCP - General 07/17/13 documented as of this encounter
--- OUTSIDE RECORDS SUMMARY | 2023-12-08 11:05 | XMS_ITS | Encounter Summary ---
Author Organization [facility] [place] [address] Care Team Providers Care Fish Bailer Name Role Phone Lolly Oliveira MD Primary Care Provider [phone] Reason for Visit * Reason Comments Follow-up Encounter Details Date Type Department Care Team (Late st Contact Info) Description 06/06/2021 8:45 AM EDT Office Visit Dermatology at [address] [address] Clay Ramírez MD [address] [facility] [place] [address] Psoriasis, guttate Social History Tobacco Use Types [...] [facility] Hospital Encounter Non[place] [address] Arrived documented as of this encounter Visit Diagnoses Diagnosis Psoriasis, guttate Other psoriasis documented in this encounter Care Teams Fish Bailer Relationship Specialty Start Date End Date Lolly Oliveira MD [address] [place] [address] PCP - General 07/17/13 documented as of this encounter
--- OUTSIDE RECORDS SUMMARY | 2023-12-08 11:05 | XMS_ITS | Encounter Summary ---
[place] [address] Care Team Providers Care Cooler Service Supervisor Name Role Phone Lolly Oliveira MD Primary Care Provider [phone] Encounter Details Date Type Department Care Team [...] AM EST Hospital Encounter Non-Invasive [place] [address] Arrived documented as of this encounter Visit Diagnoses Not on filedocumented in this encounter Care Teams Cooler Service Supervisor Relationship Specialty Start Date End Date Lolly Oliveira MD [address] [place] [address] PCP - General 07/17/13 documented as of this encounter
--- OUTSIDE RECORDS SUMMARY | 2023-12-08 11:05 | XMS_ITS | Encounter Summary ---
Author Organization [facility] [place] [address] Care Team Providers Care Steelworker Name Role Phone Lolly Oliveira MD Primary Care Provider [phone] Reason for Visit * Reason Comments Follow-up Encounter Details Date Type Department Care Team (Late st Contact Info) Description 07/02/2022 8:00 AM EDT Office Visit Dermatology at [address] [phone] Clay Ramírez MD [address] [facility], [place] [address] Psoriasis, guttate Social History Tobacco Use Types [...] HEALTH SERVICES Hospital Encounter [place] [address] Arrived documented as of this encounter Visit Diagnoses Diagnosis Psoriasis, guttate Other psoriasis documented in this encounter Care Teams Steelworker Relationship Specialty Start Date End Date Lolly Oliveira MD [address] [place] [address] PCP - General 07/17/13 documented as of this encounter
--- OUTSIDE RECORDS SUMMARY | 2023-12-08 11:05 | XMS_ITS | Encounter Summary ---
Author Organization [facility], [facility] [place] [address] Care Team Providers Care Linter Saw Sharpener Name Role Phone Lolly Oliveira MD Primary Care Provider [phone] Encounter Details Date Type Department Care Team (Latest Contact Info) Description 07/26/2013 9:44 AM EDT - 07/26/2013 11:59 PM EDT Hospital [place] [phone] CLINIC, Lolly So MD [address] [place], [place] [id number] Mammographic microcalcification Discharge Disposition: Home Social History [...] AM EST Hospital Encounter Non-[place] [phone] Arrived documented as of this encounter Procedures [...] are present on specimen digital X-ray. A Stootie-Stereo 13 Cylinder marker clip was placed. Cranio-caudal [...] mLs documented in this encounter Care Teams Linter Saw Sharpener Relationship Specialty Start Date End Date Lolly Oliveira MD [address] [place] [address] PCP - General 07/17/13 documented as of this encounter
--- OUTSIDE RECORDS SUMMARY | 2023-12-08 11:05 | XMS_ITS | Encounter Summary ---
Author Organization [facility] [address] Care Team Providers Care Operations And Intelligence Assistant Name Role Phone Lolly Oliveira MD Primary Care Provider [phone] Reason for Visit * Reason Onset Date Comments Pre Procedure Call 07/01/2022 Encounter Details Date Type Department Care Team (Late st Contact Info) Description 07/01/2022 Telephone Cardiology at [address] [phone] Rosenda Sutton RN Pre Procedure Call Social History Tobacco Use Types Packs/Day Years Used Date Smoking Tobacco: Never Sex and Gender Information Value Date Recorded Sex Assigned at Not on file Gender Identity Not on file Sexual Orientation Not on file documented as of this encounter Miscellaneous Notes * Telephone Encounter - Rosenda Sutton RN - 07/01/2022 9:30 AM EDTSummary: Pre Procedure Call: BUSINESS OFFICE REPRESENTATIVE implant EP NEUROSURGICAL NURSE PRACTITIONER COORDINATION CHECKLIST Patient Name: Luna Mott Patient Performing Community Dietitian: Lalit Mcmahon Referring Provider: Lolly Oliveira Date of Procedure: 07/23/22 Arrival Time/ Case Time: 12:00 pm / 1:00 pm Check In Location: [facility] Desk 4W Date Patient was Called: 07/01/22 Procedure: BUSINESS OFFICE REPRESENTATIVE Company: [employer] Type: BUSINESS OFFICE REPRESENTATIVE-D Laterality: LEFT Orders: Yes Lab Orders: Yes [...] Other Instructions: Clear liquids (water, apple juice, els lauri) OK up until 2 hrs prior to procedure, nothing to eatafter midnight on day of procedure.Same Day will call 07/22. If applicable will bring CPAP from home. Will be staying overnight , understands that they will need catshovel driver on day of discharge Notified pt that Goff catheter may be placed on day of procedure depending on type & duration of case. documented in this encounter Plan of Treatment Upcoming Encounters Date Type Department Care Team (Late st Contact Info) Description 01/16/2024 10:00 AM [facility] Hospital Encounter Non-[place]vasive [place] [address] Arrived documented as of this encounter Visit Diagnoses Not on filedocumented in this encounter Care Teams Operations And Intelligence Assistant Relationship Specialty Start Date End Date Lolly Oliveira MD [address] [place] [address] PCP - General 07/17/13 documented as of this encounter
--- OUTSIDE RECORDS SUMMARY | 2023-12-08 11:05 | XMS_ITS | Encounter Summary ---
Author Organization [facility] [place] [address] Care Team Providers Care Redeye Gunner Name Role Phone Lolly Oliveira MD Primary Care Provider [phone] Reason for Referral * Diagnostic Test (Routine) - Closed Specialty Diagnoses / Procedures Referred By Contac t Referred To Contact Radiology Diagnoses Left bundle branch block Nonischemic cardiomyopathy Procedures MRI Cardiac Morphology Function With Flow Velocity Quantification wwo Contrast MRI Cardiac Morphology Function wwo Contrast Lalit Mcmahon MD [facility] [place] [place] [address] [place] [address] Referral ID Status Reason Start Date Expiration Date V isits Requested Visits Authorized [id number] Closed Specialty Service Requested 05/06/2022 11/07/2023 2 1 Encounter Details Date Type Department Care Team (Late st Contact Info) Description 05/06/2022 Orders Only Cardiology at [address] [phone] Lalit Mcmahon MD [facility] [place] [address] Left bundle branch block; Nonischemic cardiomyopathy Social [...] EST Hospital Encounter Non-Invasive [place] [phone] Arrived documented as of this encounter Results [...] who have questions please contact the health palliative care specialist that requested your imaging first. [...] patients who have questions please contactthe health palliative care specialist that requested your imaging first. Lalit Mcmahon MD IMG MRI ORDERABLES documented in this encounter Visit Diagnoses Diagnosis Left bundle branch block Other left bundle branch block Nonischemic cardiomyopathy Other primary cardiomyopathies Left bundle branch block Other left bundle branch block Nonischemic cardiomyopathy Other primary cardiomyopathies documented in this encounter Care Teams Redeye Gunner Relationship Specialty Start Date End Date Lolly Oliveira MD [address] [place] [address] PCP - General 07/17/13 documented as of this encounter
--- OUTSIDE RECORDS SUMMARY | 2023-12-08 11:05 | XMS_ITS | Encounter Summary ---
Author Organization [facility] [place] [address] Care Team Providers Care Blueprinting And Photocopy Supervisor Name Role Phone Lolly Oliveira MD Primary Care Provider [phone] Reason for Visit * Reason Onset Date Comments Other 07/24/2022 Implanted Cardia c Device Teaching/Education Encounter Details Date Type Department Care Team (Late st Contact Info) Description 07/24/2022 Notes Only Cardiology at [address] [phone] Letha Arroyo Other (Implanted Cardiac Device Teaching/Education) Social History Tobacco Use Types Packs/Day Years Used Date Smoking Tobacco: Never Alcohol Use Standard Drinks/Week Comments Not Currently 0 (1 standard drink = 0.6 oz pur e alcohol) [facility] Inpatient Questions Answer Date Recorded Does Anyone [...] to call the Cardiac Device Clinic at [phone] with any questions. Plan: Post op check: [...] [facility] Hospital Encounter Non-[place] [address] Arrived documented as of this encounter Visit Diagnoses Not on filedocumented in this encounter Care Teams Blueprinting And Photocopy Supervisor Relationship Specialty Start Date End Date Lolly Oliveira MD [address] [place] [address] PCP - General 07/17/13 documented as of this encounter
--- OUTSIDE RECORDS SUMMARY | 2023-12-08 11:05 | XMS_ITS | Encounter Summary ---
[place] [address] Care Team Providers Care Front Desk Agent Name Role Phone Lolly Oliveira MD Primary Care Provider [phone] Encounter Details Date Type Department Care Team (Latest Contact Info) Description 07/26/2013 9:45 AM EDT - 07/26/2013 11:59 PM EDT Hospital Encounter [place] [address] Mammographic microcalcification Social History Tobacco Use Types [...] AM EST Hospital Encounter Non-Invasive [place] [address] Arrived documented as of this encounter Procedures Procedure Name Priority Date/Time Associated Diagnosis Comments SURGICAL PATHOLOGY REPORT Routine 07/26/2013 12:12 PM EDT MAMMO SPECIMEN IMAGING DURING BIOPSY Routine 07/26/2013 11:58 AM EDT Mammographic microcalcification documented in this encounter Results * Surgical Pathology Report (07/26/2013 12:12 PM EDT) Final Diagnosis ? [facility] ? Provider: ?? ELENO CHRISTIAN ?? Pt. Name: ?? JING ALVARENGA ? Acc #: ?[id number] ?Pt. ? Col Date: ?? 07/26/2013 ? [...] fragmented, fibrofatty needle core biopsies. ? [facility] ? Provider: ?? ELENO CHRISTIAN ?? Pt. Name: ?? JING ALVARENGA ? Acc #: ?[id number] ?Pt. ? Col Date: ?? 07/26/2013 ? [...] FCD, adenosis, DCIS 07/28/2013 8:29 AM EDT [facility] BREAST STRUCTURE / Unknown 07/26/2013 12:12 PM EDT 07/26/2013 12:12 PM EDT Eleno Christian MD PATHOLOGY/CYTOLOGY O RDERABLES Performing Organization Address City/State/[facility] Co fl Phone Number [facility] [place] [address] * Mammo Specimen Imaging During Biopsy (07/26/2013 [...] microcalcification documented in this encounter Care Teams Front Desk Agent Relationship Specialty Start Date End Date Lolly Oliveira MD [address] [place] [address] PCP - General 07/17/13 documented as of this encounter
--- OUTSIDE RECORDS SUMMARY | 2023-12-08 11:05 | XMS_ITS | Encounter Summary ---
Author Organization [facility] [place] [address] Care Team Providers Care Paint Supervisor Name Role Phone Lolly Oliveira MD Primary Care Provider [phone] Encounter Details Date Type Department Care Team (Late st Contact Info) Description 11/16/2022 Telephone Cardiology at [address] [phone] Luna Rousseau, RN Social History Tobacco Use Types Packs/Day Years Used Date Smoking Tobacco: Never Alcohol Use Standard Drinks/Week Comments Not Currently 0 (1 standard drink = 0.6 oz pur e alcohol) [facility] Inpatient Questions Answer Date Recorded Does [...] BP today was 118/57 at CR at [facility]. Pt is going twice a [...] [place] Hospital Encounter [place] [phone] Arrived documented as of this encounter Visit Diagnoses Not on filedocumented in this encounter Care Teams Paint Supervisor Relationship Specialty Start Date End Date Lolly Oliveira MD [address] [place] [address] PCP - General 07/17/13 documented as of this encounter
--- OUTSIDE RECORDS SUMMARY | 2023-12-08 11:05 | XMS_ITS | Encounter Summary ---
Author Organization [facility] Address [facility] [place] [address] Care Team Providers Care Electronic Funds Transfer Coordinator Name Role Phone Lolly Oliveira MD Primary Care Provider [phone] Encounter Details Date Type Department Care Team (Late st Contact Info) Description 01/29/2023 Notes Only Cardiology at [address] [address] Merle Lin PA [facility] [place] [address] Social History Tobacco Use Types Packs/Day Years [...] pdf document Date of transmission: 01/29/2023 Device gas appliance adjuster: BSI Device type: CAR REPAIRER HELPER-D Presenting rhythm: /RVP/LVP AP 21% Right CD MIXER 100% Left CD MIXER: 100% Battery: 10.5 years HeartLogic Index rising in setting of increasing S3 intensity, increasing respiratory rate, increasing night heart rate, and increasing mean heart rate. MICKEY Villa 01/29/2023 9:06 AM documented in this encounter Plan of Treatment Upcoming Encounters Date Type Department Care Team (Late st Contact Info) Description 01/16/2024 10:00 AM EST Hospital Encounter Non-Invasive [place] [address] Arrived documented as of this encounter Visit Diagnoses Not on filedocumented in this encounter Care Teams Electronic Funds Transfer Coordinator Relationship Specialty Start Date End Date Lolly Oliveira MD [address] [place] [address] PCP - General 07/17/13 documented as of this encounter
--- OUTSIDE RECORDS SUMMARY | 2023-12-08 11:05 | XMS_ITS | Encounter Summary ---
Author Organization [facility] [place] [address] Care Team Providers Care Book Sorter Name Role Phone Lolly Oliveira MD Primary Care Provider [phone] Encounter Details Date Type Department Care Team (Latest Contact Info) Description 01/21/2023 10:00 AM EST - 01/21/2023 11:59 PM EST Hospital Encounter [place] [address] Discharge Disposition: Home Social History Tobacco Use [...] with spacer fluticasone propionate (Flonase) 50 mcg/actuation [place], Suspension 1 spray by Each Nare route [...] AM EST Hospital Encounter [place] [address] Arrived documented as of this [...] on filedocumented in this encounter Care Teams Book Sorter Relationship Specialty Start Date End Date Lolly Oliveira MD [address] [place] [address] PCP - General 07/17/13 documented as of this encounter
--- OUTSIDE RECORDS SUMMARY | 2023-12-08 11:05 | XMS_ITS | Encounter Summary ---
Author Organization [facility] [place] [address] Care Team Providers Care Rn Psych Name Role Phone Lolly Oliveira MD Primary Care Provider [phone] Encounter Details Date Type Department Care Team (Late st Contact Info) Description 03/17/2023 Telephone Cardiology at [address] [phone] Saranya Ma Social History Tobacco Use Types Packs/Day Years Used Date Smoking Tobacco: Never Alcohol Use Standard Drinks/Week Comments Not Currently 0 (1 standard drink = 0.6 oz pur e alcohol) [facility] Inpatient Questions Answer Date Recorded Does Anyone [...] AM EST Echo order faxed to [facility] at [phone]. No Prior auth needed. Ref #:[id number]. Saranya Ma Sr. Clinical Procedure Rodman/Senior Clinical Data Coordinator documented in this encounter Plan of Treatment Upcoming Encounters Date Type Department Care Team (Late st Contact Info) Description 01/16/2024 10:00 AM [facility] Hospital Encounter Non-[place] [address] Arrived documented as of this encounter Visit Diagnoses Not on filedocumented in this encounter Care Teams Rn Psych Relationship Specialty Start Date End Date Lolly Oliveira MD [address] [place] [address] PCP - General 07/17/13 documented as of this encounter
--- OUTSIDE RECORDS SUMMARY | 2023-12-08 11:06 | XMS_ITS | Encounter Summary ---
[place] [address] Care Team Providers Care Brickmason Helper Name Role Phone Lolly Oliveira MD Primary Care Provider [phone] Encounter Details Date Type Department Care Team (Late st Contact Info) Description 07/17/2013 Orders [place] [phone] Lolly Oliveira MD [address] [place], [place] [id number] Social History Tobacco Use Types Packs/Day Years [...] AM EST Hospital Encounter Non-Invasive [place] [phone] Arrived documented as of this encounter Procedures [...] OUTSIDE MAMMOGRAMS (PERFORMED ON 07/06/13 AND 07/14/13) [facility] DATED 07/17/13: DIAGNOSTIC IMAGING SUMMARY: RIGHT [...] on filedocumented in this encounter Care Teams Brickmason Helper Relationship Specialty Start Date End Date Lolly Oliveira MD [address] [place] [address] PCP - General 07/17/13 documented as of this encounter
--- OUTSIDE RECORDS SUMMARY | 2023-12-08 11:06 | XMS_ITS | Encounter Summary ---
Author Organization [facility] [place] [address] Care Team Providers Care Cement Mason [address] Name Role Phone Unavailable Primary Care Provider Unavailabl e Encounter Details Date Type Department Care Team (Late st Contact Info) Description 07/14/2013 External Results XRay at [address] [place] [address] Provider, Scanning Social History Tobacco Use Types [...] AM EST Hospital Encounter Non-Invasive Cardiology Lab [facility] [place] [address] Arrived documented as of this encounter Procedures [...]
--- OUTSIDE RECORDS SUMMARY | 2023-12-08 11:06 | XMS_ITS | Encounter Summary ---
Author Organization [facility] [place] [address] Care Team Providers Care General Magistrate Name Role Phone Lolly Olievira MD Primary Care Provider [phone] Encounter Details Date Type Department Care Team (Late st Contact Info) Description 06/29/2011 Orders [place] [phone] Eleno Christian MD [facility] [place] [address] Social History Tobacco Use Types Packs/Day Years [...] AM EST Hospital Encounter Non-Invasive [place] [address] Arrived documented as of this encounter Procedures [...] Note 07/17/2013 This is a Non-reportable exam Elneo Christian MD [facility] FILM LIBRARY ORD ERABLES documented in this encounter Visit Diagnoses Not on filedocumented in this encounter Care Teams General Magistrate Relationship Specialty Start Date End Date Lolly Oliveira MD [address] [place] [address] PCP - General 07/17/13 documented as of this encounter
--- OUTSIDE RECORDS SUMMARY | 2023-12-08 11:06 | XMS_ITS | Encounter Summary ---
Author Organization [place] [address] Care Team Providers Care Vice President Business & Corporate Development Name Role Phone Unavailable Primary Care Provider Unavailabl e Encounter Details Date Type Department Care Team (Late st Contact Info) Description 07/14/2013 [place] [phone] Eleno Christian MD [facility] [place] [address] Social History Tobacco Use Types Packs/Day Years [...] AM EST Hospital Encounter [place] [address] Arrived documented as of this encounter Visit Diagnoses Not on filedocumented in this encounter
--- OUTSIDE RECORDS SUMMARY | 2023-12-08 11:06 | XMS_ITS | Encounter Summary ---
Author Organization [facility] [place] [address] Care Team Providers Care Satellite Technician Name Role Phone Unavailable Primary Care Provider Unavailabl e Encounter Details Date Type Department Care Team (Late st Contact Info) Description 07/04/2012 [place] [phone] Eleno Christian MD [facility] [place] [address] Social History Tobacco Use Types Packs/Day Years [...] AM EST Hospital Encounter Non-[place] [address] Arrived documented as of this encounter Procedures [...] is a Non-reportable exam Eleno Christian MD [facility] FILM LIBRARY ORD ERABLES documented in this encounter Visit Diagnoses Not on filedocumented in this encounter
--- OUTSIDE RECORDS SUMMARY | 2023-12-08 11:06 | XMS_ITS | Encounter Summary ---
Author Organization [facility] [place] [address] Care Team Providers Care Mohel Name Role Phone Lolly Oliveira MD Primary Care Provider [phone] Encounter Details Date Type Department Care Team (Latest Contact Info) Description 07/17/2013 8:40 AM EDT - 07/17/2013 11:59 PM EDT Hospital Encounter XRay at [address] [place] [address] CLINIC, DR [facility] Discharge Disposition: Home Social [...] AM EST Hospital Encounter Non-[place] [address] Arrived documented as of this encounter Visit Diagnoses Not on filedocumented in this encounter Care Teams Mohel Relationship Specialty Start Date End Date Lolly Oliveira MD [address] [place] [address] PCP - General 07/17/13 documented as of this encounter
[2023-12-08 11:07] VITALS: BP 140/72; PULSE 69
--- OUTSIDE RECORDS SUMMARY | 2023-12-10 11:03 | XMS_ITS ---
Author Organization Unknown ALLERGIES AND ADVERSE REACTIONS No information ASSESSMENT No information CHIEF COMPLAINT No information MEDICATIONS No information OBJECTIVE DATA No information PHYSICAL EXAMINATION No information TREATMENT PLAN Planned Care Start Date Provider Encounter for Check-up [id number] PROBLEMS No information RESULTS No information REVIEW OF SYSTEMS No information SUBJECTIVE DATA No information VITAL SIGNS No information
[2023-12-10 11:04] VITALS: BP 149/69; PULSE 70
--- OUTSIDE RECORDS SUMMARY | 2023-12-10 11:04 | XMS_ITS | Encounter Summary ---
Author Organization [facility] Address [address] [place] [address] Care Team Providers Care Training Systems Officer Name Role Phone Lolly Oliveira MD Primary Care Provider [phone] Encounter Details Date Type Department Care Team (Late st Contact Info) Description 11/13/2020 Lab Requisition [facility] Pathology & Laboratory Medicine - [address] [phone] Outr Resulting Lab, Provider Social History Tobacco [...] ORDERABLES [facility] [address] [place] [address] * COVID-19 TESTING (11/13/2020 7:30 EDT) COVID-19 rt-PCR Result Negative Negative 11/14/2020 11:46 EDT [facility] Comment: This test [...] performed using the med SARS-CoV-2 assay ([employer] on the Med 6800 System Performing Lab Med [address] [facility] Lab 11/14/2020 11:46 EDT [facility] Swab 11/13/2020 7:30 EDT 11/13/2020 20:57 EDT Provider Outr Resulting Lab MICROBIOLOGY - GENERAL ORDERABLES [facility] [address] [place] [address] documented in this encounter Visit Diagnoses Not on filedocumented in this encounter Care Teams Training Systems Officer Relationship Specialty Start Date End Date Lolly Oliveira MD [address] [place] [address] PCP - General 11/13/08 documented as of this encounter
--- OUTSIDE RECORDS SUMMARY | 2023-12-10 11:04 | XMS_ITS | Encounter Summary ---
Author Organization [facility] Address [address] [place] [address] Care Team Providers Care [employer]c Storage Architect Name Role Phone Lolly Oliveira MD Primary Care Provider [phone] Encounter Details Date Type Department Care Team (Late st Contact Info) Description 03/21/2019 Lab Requisition [facility] Pathology & Laboratory Medicine - [address] [address] Unknown, Provider, Social History Tobacco Use Types [...] 211 - 911 pg/mL 03/22/2019 11:52 EST [facility] Blood VENOUS BLOOD / Unknown 03/16/2019 9:25 EST 03/21/2019 21:35 EST Provider Unknown CHEMISTRY & BLOOD GA S ORDERABLES [facility] [address] [place] [address] documented in this encounter Visit Diagnoses Not on filedocumented in this encounter Care Teams Emc Storage Architect Relationship Specialty Start Date End Date Lolly Oliveira MD [address] [place] [id number] PCP - General 11/13/08 documented as of this encounter
--- OUTSIDE RECORDS SUMMARY | 2023-12-10 11:04 | XMS_ITS | Encounter Summary ---
Author Organization [facility] Address [address] [place] [address] Care Team Providers Care Superintendent Track Name Role Phone Lolly Oliveira MD Primary Care Provider [phone] Encounter Details Date Type Department Care Team (Late st Contact Info) Description 05/27/2021 Lab Requisition [facility] Pathology & Laboratory Medicine - [address] [address] Iman Moran, DO [address] [place], [place] [id number] Encounter for other general examination Social History [...] management options, if applicable. 05/30/2021 13:31 EDT [facility] Final Diagnosis A. COLON, [...] [facility] Performing Lab [facility] 05/30/2021 13:31 [facility] Scanned Images 05/30/2021 13:31 [facility] Tissue ENTIRE COLON / Unknown 05/27/2021 11:23 EDT 05/27/2021 16:33 EDT mIan Moran DO PATHOLOGY ORDERABLES [facility] [address] [place] [address] documented in this encounter Visit Diagnoses Diagnosis Encounter for other general examination documented in this encounter Care Teams Superintendent Track Relationship Specialty Start Date End Date Lolly Oliveira MD [address] [place] [address] PCP - General 11/13/08 documented as of this encounter
--- OUTSIDE RECORDS SUMMARY | 2023-12-10 11:04 | XMS_ITS | Encounter Summary ---
Author Organization [facility] Address [address] [place] [address] Care Team Providers Care Healthcare Associate Name Role Phone Unavailable Primary Care Provider Unavailabl e Encounter Details Date Type Department Care Team (Late st Contact Info) Description 11/07/[address] [facility] Laboratory Services - [facility] ([facility] [address] [place] [address] Kenneth Parker MD [address] [place] [id number] Social History Tobacco Use Types Packs/Day Years [...] ? LYLE, JING ? Accession #: ? [id number] ? : ? 1950 (Age: 58) ??F [...] Co de Phone Number [facility] [address] [place] [address] documented in this encounter Visit Diagnoses Not on filedocumented in this encounter
--- OUTSIDE RECORDS SUMMARY | 2023-12-10 11:04 | XMS_ITS | Encounter Summary ---
Author Organization [facility] [place] [address] Care Team Providers Care Banana Ripening Room Supervisor Name Role Phone Lolly Oliveira MD Primary Care Provider [phone] Encounter Details Date Type Department Care Team [...] Hospital Encounter Non[place] [address] Arrived documented as of this encounter Visit Diagnoses Not on filedocumented in this encounter Care Teams Banana Ripening Room Supervisor Relationship Specialty Start Date End Date Lolly Oliveira MD [address] [place] [address] PCP - General 07/17/13 documented as of this encounter
--- OUTSIDE RECORDS SUMMARY | 2023-12-10 11:04 | XMS_ITS | Encounter Summary ---
Author Organization [facility] Address [address] [place] [address] Care Team Providers Care Lift Manager Name Role Phone Lolly Oliveira MD Primary Care Provider [phone] Encounter Details Date Type Department Care Team (Late st Contact Info) Description 02/11/2021 Lab Requisition [facility] Pathology & Laboratory Medicine - [address] [address] Outr Resulting Lab, Provider Social History Tobacco [...] Lab MICROBIOLOGY - GENERAL ORDERABLES [facility] [address] [place] [address] * COVID-19 TESTING (02/11/2021 8:00 EST) COVID-19 rt-PCR Result Negative Negative 02/12/2021 14:17 EST [facility] Comment: This test has not [...] was performed using the med SARS-CoV-2 assay ([employer] on the Med 6800 System Performing Lab Med [address] [facility] Lab 02/12/2021 14:17 EST [facility] Swab 02/11/2021 8:00 EST 02/11/2021 22:22 EST Provider Outr Resulting Lab MICROBIOLOGY - GENERAL ORDERABLES [facility] [address] [place] [address] documented in this encounter Visit Diagnoses Not on filedocumented in this encounter Care Teams Lift Manager Relationship Specialty Start Date End Date Lolly Oliveira MD [address] [place] [address] PCP - General 11/13/08 documented as of this encounter
--- OUTSIDE RECORDS SUMMARY | 2023-12-10 11:04 | XMS_ITS | Referral Summary ---
Author Organization [facility] Address [address] [place] [address] Care Team Providers Care Game Master Name Role Phone Lolly Oliveira MD Primary Care Provider [phone] Social History Tobacco Use Types Packs/Day Years Used Date Smoking Tobacco: Never Assessed Sex and Gender Information Value Date Recorded Sex Assigned at Not on file Gender Identity Not on file Sexual Orientation Not on file Plan of Treatment Not on file Care Teams Game Master Relationship Specialty Start Date End Date Lolly Oliveira MD [address] [place] [address] PCP - General 11/13/08
--- OUTSIDE RECORDS SUMMARY | 2023-12-10 11:04 | XMS_ITS | Continuity of Care Document ---
Author Organization [facility], [facility] Address [address] [place] [address] Care Team Providers Care Harbor Tug Captain Name Role Phone [facility] E[facility] OFFICE Optometris t ASHLY THURSTON Side Piece Coverer JAYCOB MARTINEZ Orthopedic Surgeon ROXANA KELLEY Client Customer Manager FLOWER RAMSEY Dentist Assessment No assessment recorded. Plan of Treatment Reminders Order Date Submit Date Provider Last Modified By Organization Details Last Modified Time Details Appointments Medicare Annual Wellness 40 2024 07:30A M Not available Not available Not available Lab None recorded. Referral None recorded. Procedures None recorded. Surgeries None recorded. Imaging MAMMO, screening , bilateral 2023 024 [facility] (Radiology), [address] [place], [place] [address], [address], 11/26/2023 15:15:54 Medication Orders None recorded. Patient TargetsNo targets recorded. Patient InstructionsNo instructions recorded. Reason for Referral Gyroscope Repairer Referral for Onyc homycosis onychomycosis, calluses Referring [...] ation record ed. Not Available 11/21 06:42:56 12/08/1912/08/2023 mammo graph y imagi ng repor t Patien t Name: Naomi Mott Unit #: [id number] Loc: DI Orderi ng Provid er: Janice Pérez M.D. Accoun t #: [id number] Status : REG CLI Primar y Care Provid er: Janice Pérez M.D. Date of Exam : Sex: F Admiss ion Date: : 1950 Age: 73 Exam(s ) MG MAMMO SCREEN ING EXAM: MG MAMMO SCREEN ING CLINIC AL HISTOR Y: Screen ing, Z12.31 TECHNI QUE: Mammog thea were interp reted accord ing to the usual protoc ol includ ing comput er analys is with CAD system , tomosy nthesi s and C-view imagin g. COMPAR NICOLETTE: No exams were availa ble for compar nicolette FINDIN GS: The breast s are compos ed of scatte red fibrog landul ar densit ies, Breast Densit y catego ry B. No suspic ious masses or suspic ious microc alcifi cation s are seen. No skin thicke milagro or abnorm al axilla ry lymph nodes are seen. There has been no signif icant change from prior exams. A pacema ker is again noted over the left pector al muscle . IMPRES KARLENE: BI-RAD S Catego ry 1, Negati ve mammog osei Yearly screen ing mammog cele is recomm ended. Breast Densit y - Catego ry B, scatte red fibrog landul ar densit ies. A negati ve radiog raphic report should not delay biopsy if a domina nt or clinic ally suspic ious mass is presen t. Up to ten percen t of cancer s are not identi fied on mammog cele. A negati ve report may reinfo rce clinic al impres karlene. Adenos is and dense breast s may obscur e an underl maggie neopla sm. False positi ve report s averag e 6 to 10%. Patien t will receiv e a letter notify ing them of these result s. Ordere d By: Janice Pérez M.D. CC: ------ ------ ------ ------ ------ ------ ------ ------ ------ ------ ------ ------ - Dictat ed By: Boaz Lopez 1527 1527 Transc ribed By: Rita Patterson 1527 This is privil eged, confid ential inform ation intend ed only for the provid er named. Any use or distri bution by any person other than this provid er is strict ly prohib ited. If you receiv e this report in error, please notify us immedi daya at [phone] and return the origin al report to us at the addres s above. Thank- you. rod [facility] [address], [place], [address] 12/09/2023 05:58:02 Result Notes None recorded. Problems Name Problem SNOMED Code Status Onset Date Resolution Date Notes Provider Name and Address Organization Details Recorded Time Asthma 962594887 Active 200204/14/19 22 - Comments only - Ju Oliveira MD - Not too much of an issue recently . She does keep albutero l inhaler availabl e if needed. Problem Code: 493.90; Problem Code Type: ICD-9; Not Available [facility] 3 04:01:51 Atypical glandula r cells on cervical Papanico laou smear 360483671 Active 2007 Problem Code: 795.00; Problem Code Type: ICD-9; Not Available [facility] 3 04:01:51 Dizzines s and giddines s 810773679 Active 201404/14/19 22 - Comments only - Ju Oliveira MD - , Intermit tent. She has learned to deal with it using the Jd's maneuver . She will call if any signific ant worsenin g. Problem Code: R42; Problem Code Type: ICD-10; Not Available [facility] 3 04:01:52 [facility] hyperten karlene 20075925 Active 201401/12/20 22 - Comments only - Ju Oliveira MD - Blood pressure well controll ed with the lisinopr il and Toprol. Problem Code: I10; Problem Code Type: ICD-10; Not Available [facility] 3 04:01:52 Adult health examinat ion Active 201504/16/19 23 - Comments only - Ju Oliveira MD - UTD with mammo, has a DEXA schedule d ( dx of osteopor osis), will check an A1c. Problem Code: Z00.00; Problem Code Type: ICD-10; Not Available [facility] 3 04:01:52 Disorder of skin and/or subcutan eous tissue 49555986 Active 201509/17/19 16 - Comments only - Ju Oliveira MD - the lesions on the buttucks appear to have been possible boils that are now healing vs atopic rxn resolvin g. At this point no tx needed. If worsenin g/recurr ing she will call. I don't believe these are related to rubbing while walking Problem Code: L98.9; Problem Code Type: ICD-10; Not Available [facility] 3 04:01:52 Pain in right hip joint 60093667956 9102 Completed 201512/02/2022 Problem Code: M25.551; Problem Code Type: ICD-10; Not Available [facility] 3 04:01:52 Onychomy cosis due to dermatop hyte 478456991 Active 201609/23/19 17 - Comments only - Ju Oliveira MD - she is going to contact podiatry to find out if they have any other topical txs that might work. She is not interest ed in systemic tx Problem Code: B35.1; Problem Code Type: ICD-10; Not Available [facility] 3 04:01:52 Hearing loss of right ear 524063624 Completed 201712/10/2017 11/27/19 18 - Comments only - Naseem Gil PA-C - Cerumino sis treated in-offic e today. If hearing fails to be fully restored over the course of the weekend, will consider for ENT refer for formal audiolog y assessme nt. Problem Code: H91.91; Problem Code Type: ICD-10; Not Available [facility] 3 04:01:52 Abnormal weight gain 301287709 Active 2018 Problem Code: R63.5; Problem Code Type: ICD-10; Not Available [facility] 3 04:01:53 Disorder of hip joint 866182321 Active 201801/12/20 22 - Comments only - Ju Oliveira MD - ,rt. For which she would like a total hip replacem ent. 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 She is trying to continue being as mobile as she can comforta silva. Problem Code: M12.859; Problem Code Type: ICD-10; Not Available [facility] 3 04:01:53 Acute vaginiti s 48562043 Completed 201801/04/2019 12/22/19 19 - Comments only - Naseem Gil PA-C - Will await resutls of today's collecte d VPS to determin e indicati on for further treatmen t. Problem Code: N76.0; Problem Code Type: ICD-10; Not Available [facility] 3 04:01:53 Intertri go 62150239 Completed 201801/04/2019 12/22/19 19 - Comments only - Naseem Gil PA-C - Patient encourag ed to keep skin folds as clean and dry as possible to avoid reactiva tion (suggest ed hair spring winder after bathing) . Addition ally, could consider to use OTC DESITIN for acute skin healing. Problem Code: L30.4; Problem Code Type: ICD-10; Not Available [facility] 3 04:01:53 Pre-surg cecilia evaluati on Completed 201801/23/2019 01/10/20 19 - Comments only - Naseem Gil PA-C - Today's EKG shows stable LBBB (compare d to study 10/19/14) with NSR at 69bpm. Patient to f/u for pre-oper ative laborato ry testing and anesthes ia consult as schedule d 01/17/19 . Problem Code: Z01.818; Problem Code Type: ICD-10; Not Available [facility] 3 04:01:53 Hip joint prosthes is present 954021919 Active 2018 Problem Code: Z96.642; Problem Code Type: ICD-10; Not Available [facility] 3 04:01:53 Dyspnea 565569072 Completed 201903/27/2019 03/13/19 - Comments only - Naseem Gil PA-C - Suspect some componen t of RAD. Assuming today's laboaror y testing returns as benign, patient agrees to trial RXd VENTOLIN HFA 2 puffs Q4-6hr PRN as manageme nt. We will plan to touch base with patient by phone on F 03/17/19 for status update. Problem Code: R06.02; Problem Code Type: ICD-10; Not Available [facility] 3 04:01:54 Edema 894687351 Completed 201906/21/2019 06/07/19 20 - Comments only - Naseem Gil PA-C - Patient reassure d nothing concerni ng on today's PX to raise suspicio n for DVT. Suspect minor calf muscle strain. OK to continue to use compress ion stocking s for symtpoma tic relief and consider calf stretche s. F/U PRN. Problem Code: R60.9; Problem Code Type: ICD-10; Not Available [facility] 3 04:01:54 Headache 04183707 Active 2020 Problem Code: R51.9; Problem Code Type: ICD-10; Not Available [facility] 3 04:01:54 Guttate psoriasi s 38540224 Active 202004/16/19 23 - Comments only - Ju Oliveira MD - being followed by mika mecrado under reasonab le control with the UV tx and prn clobetas ol cream Problem Code: L40.4; Problem Code Type: ICD-10; Not Available [facility] 3 04:01:54 Stool finding 151492672 Active 2021 Problem Code: R19.5; Problem Code Type: ICD-10; Not Available [facility] 3 04:01:54 Speciali zed medical examinat ion Active 2021 Problem Code: Z01.89; Problem Code Type: ICD-10; Not Available [facility] 3 04:01:54 Edema 956038053 Active 2021 Problem Code: R60.9; Problem Code Type: ICD-10; Not Available [facility] 3 04:01:55 Screenin g mammogra phy Active 2021 Problem Code: Z12.31; Problem Code Type: ICD-10; Not Available [facility] 3 04:01:55 Abnormal finding on evaluati on procedur e 136672275 Active 2021 Problem Code: R89.9; Problem Code Type: ICD-10; Not Available [facility] 3 04:01:55 Dyspnea 179199007 Active 2021 Problem Code: R06.02; Problem Code Type: ICD-10; Not Available [facility] 3 04:01:55 Cardiomy opathy 97486093 Active 202109/05/19 23 - Comments only - Ju Oliveira MD - Clinical ly remainin g stable on the lisinopr il, furosemi de 20 mg daily, Jardianc e, Toprol, rosuvast atin, aspirin. ICD/pace maker in place. Followin g with cardiolo gy. She is walking/ exercisi ng regularl y. Problem Code: I42.9; Problem Code Type: ICD-10; Not Available [facility] 3 04:01:55 Heart failure 79498651 Active 2021 Problem Code: I50.9; Problem Code Type: ICD-10; Not Available [facility] 3 04:01:56 Family history of breast cancer 979342785 Active 2021 Problem Code: Z80.3; Problem Code Type: ICD-10; Not Available [facility] 3 04:01:56 Burn 461293848 Active 202101/12/20 22 - Comments only - Ju Oliveira MD - Healing slowly, no evidence of infectio n. If she has any further question s regardin g this she will let us know. Problem Code: T30.0; Problem Code Type: ICD-10; Not Available [facility] 3 04:01:56 Senile osteopor osis 23351751 Active 202101/12/20 22 - Comments only - Ju Oliveira MD - Due for a repeat DEXA scan. Ordered. She does take an over-the -counter vitamin D suppleme nt I believe. Problem Code: M81.0; Problem Code Type: ICD-10; Not Available [facility] 3 04:01:56 Hyperlip idemia 82181092 Active 202204/16/19 23 - Comments only - Ju Oliveira MD - will check LFTs, CPK, on rosuvast atin 5mg daily which has brought her lipids into goal range. Problem Code: E78.5; Problem Code Type: ICD-10; Not Available [facility] 3 04:01:56 Adjustme nt disorder 82597492 Active 2022 Problem Code: F43.20; Problem Code Type: ICD-10; Not Available [facility] 3 04:01:56 Dysuria 13698377 Active 2022 Problem Code: R30.9; Problem Code Type: ICD-10; Not Available [facility] 3 04:01:57 Itching of skin 090325964 Active 2022 Problem Code: L29.8; Problem Code Type: ICD-10; Not Available [facility] 3 04:01:57 Automati c implanta ble cardiac defibril lator in situ 798919618 Active 2022 Problem Code: Z95.810; Problem Code Type: ICD-10; Not Available [facility] 3 04:01:57 Glycosur ia 15280173 Active 202209/05/19 - Comments only - Ju Oliveira MD - , No prior diagnosi s of diabetes . She is developi ng diabetes that could be number perineal symptoms . 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 975731624 Active 202209/05/19 - Comments only - Ju Oliveira MD [...] N90.89; Problem Code Type: ICD-10; Not Available [facility] 3 04:01:57 Allergic contact dermatit is 504252374 Completed 202012/02/2022 Problem Code: L23.9; Problem Code Type: ICD-10; Not Available [facility] 3 04:02:02 [facility] l hyperten karlene 39434197 Completed 200107/25/2015 Problem Code: 401.9; Problem Code Type: ICD-9; Not Available [facility] 3 04:02:03 Polyp of colon 25361245 Completed 201006/05/2021 Problem Code: K63.5; Problem Code Type: ICD-10; Not Available [facility] 3 04:02:03 History of vertigo 385972695 Completed 201012/02/2022 01/11/20 15 - Ezio - Ju Oliveira MD - she will continue with Jd's manoever PRN and call if worsenin g/nothin g helping Not Available [facility] 3 04:02:04 Acute sinusiti s 06152509 Completed 201912/16/2020 Problem Code: J01.90; Problem Code Type: ICD-10; Not Available [facility] 3 04:02:05 Pain of right lower leg 04252905786 9108 Completed 202101/11/2022 Problem Code: M79.661; Problem Code Type: ICD-10; Not Available [facility] 3 04:02:06 Hyperlip idemia 82675961 Completed 200910/19/2017 Not Available [facility] 3 04:02:07 Dizzines s and giddines s 984759683 Completed 201408/14/2019 Problem Code: R42; Problem Code Type: ICD-10; Not Available [facility] 3 04:02:07 Hyperten sive disorder 39612067 Completed 201011/03/2018 Not Available [facility] 3 04:02:09 Diarrhea 70958104 Completed 201610/19/2017 Problem Code: R19.7; Problem Code Type: ICD-10; Not Available [facility] 3 04:02:10 Anemia 204802174 Completed 201901/11/2022 Problem Code: D64.9; Problem Code Type: ICD-10; Not Available [facility] 3 04:02:10 [place] - lesion 793562073 Active 2022 Problem Code: L84; Problem Code Type: ICD-10; Not Available [facility] 4 05:37:51 Foot callus 056819318 Active [address], [place] [address] , [facility] 4 11:29:32 Onychomy cosis 736407610 Active [address], [place] [address] , [facility] 4 11:29:44 Vertigo 948680424 Active [address], [address] 4 13:20:57 Impacted cerumen of bilatera l ears 20084982410 56299 Active [address], [address] 4 13:21:03 Prediabe tish 793552828 Active [address], [address] 4 09:24:37 Notes:*Problem Name: Colonos copy 2006 - Hyperplastic Polyp *ICD-10 Codes: *Problem Status: inactive *Comments: *Note Date: 04/29/2010 *Problem Name: Rt Breast Bx 2014 - Adenosis *ICD-10 Codes: *Problem Status: active *Comments: *Note Date: 08/01/2013 Problem Notes None recorded. Procedures Surgical History Date Name Laterality Status Provider Name and Address Organization Details Recorded Time 4 Cerumen Removal completed NATHAN HERNANDEZ Dr, [address] 09/01/2023 13:52:38 3 total replacement of right hip joint completed Cornelia Lizarraga [facility] 03/31/2023 17:11:24 Imaging Results None recorded. Procedure Notes None recorded. Medical Equipment None Reported. Allergies Allergen ID Allergen Name Allergen Category Reaction Reaction Severity Criticality Documentation Date Start Date Code Code System Note Provider Name and Address Organization Details Recorded Time 46383 sulfadiaz ine medicatio n tachycard ia mild Not available 01/15/20232001 14031 RxNorm Tachy cardi a Not Available [facility] 16:22:29 Medications Name Sig Start Date Stop [...] Updated DateTime 4 159.385 cm 40.4 kg/m2 246546. 88 g 99 % 99 % 63 /min 18 /min 136 mm[Hg] 68 mm[Hg] Davey Allen MA [facility] 4 07:36:54 Social History Question Answer Notes LastModified by Organizat ion Details LastModified Time Tobacco Smoking Status Never Smoker Davey Allen MA null, [facility] 05/21/2023 10:57:21 Would You Say That, In General, Your Health Is Very Good [email or web address] Information not available 05/21/2023 How Often Does Anyone, Including Family, Physically Hurt You? Never [email or web address] Information not available 05/21/2023 How Often Does Anyone, Including Family, Insult Or Talk Down To You? Never [email or web address] Information no t available 05/21/2023 How Often Does Anyone, Including Family, Threaten You With Harm? Never [email or web address] Information not available 05/21/2023 How Often Does Anyone, Including Family, Scream Or Curse At You? Never [email or web address] Information not available 05/21/2023 Within The Past 12 Months, You Worried That Your Food Would Run Out Before You Got Money To Buy More. Never True [email or web address] Information n ot available 05/21/2023 Within The Past 12 Months, The Food You Bought Just Didn't Last And You Didn't Have Money To Get More. Never True [email or web address] Information n ot available 05/21/2023 How Hard Is It For You To Pay For The Very Basics Like Food, Housing, Medical Care, And Heating? Would You Say It Is: Not Hard At All [email or web address] Information not available 05/21/2023 In The Past 12 Months, Has Lack Of Reliable Transportation Kept You From Medical Appointments, Meetings, Work Or From Getting Things Needed For Daily Living? No [email or web address] Information not available 05/21/2023 What Is Your Housing Situation Today? I Have Housing. [email or web address] Information not available 05/21/2023 How Often In The Past Year Have You Used Marijuana (including Smoking, Vaping, Dabbing, Or Edibles)? Never Information not available 05/21/2023 How Often In The Past Year Have You Used Prescription Medications That Were Not Prescribed To You? Never [email or web address] Information n ot available 05/21/2023 How Often In The Past Year Have You Taken Your Own Prescription Medication More Than The Way It Was Prescribed Or For Different Reasons Than Its Intended Purpose? Never [email or web address] Information no t available 05/21/2023 How Often In The Past Year Have You Used Other Drugs (for Example, Heroin, Cocaine, Meth, Salvia, Inhalants)? Never [email or web address] Information not available 05/21/2023 Have You Ever Used IV Drugs? No Information not available 05/21/2023 What Matters Most To You? Staying Healthy, Keeping Active. Getting Exercise And Losing Some Weight [email or web address] Information not available 05/21/2023 During The Past Four Weeks Has Your Physical And Emotional Health Limited Your Social Activities With Family And Friends, Neighbors, Or Groups? Not At All [email or web address] Information not available 05/21/2023 During The Past Four Weeks, Was Someone Available To Help You If You Needed And Wanted Help? (For Example, If You [place] Very Nervous, Lonely, Or Blue; Got Sick And Had To Stay In Bed; Needed Someone To Talk To; Needed Help With Daily Chores; Or Needed Help Just Taking Care Of Yourself.) No- Not At All [email or web address] Information n ot available 05/21/2023 During The Past Four Weeks, What Was The Hardest Physical Activity You Could Do For At Least 2 Minutes? Moderate [email or web address] Information not available 05/21/2023 Can You Get To Places Out Of Walking Distance Without Help? (For Example, Can You Travel Alone On Buses Or Taxis, Or Drive Your Own Car?) Yes [email or web address] Information not available 05/21/2023 Can You Go Shopping For Groceries Or Clothes Without Someone? s Help? Yes [email or web address] Information not available 05/21/2023 Can You Prepare Your Own Meals? Yes [email or web address] Information not available 05/21/2023 Can You Do Your Housework Without Help? Yes [email or web address] Information not available 05/21/2023 Because Of Any Health Problems, Do You Need The Help Of Another Person With Your Personal Care Needs Such As Eating, Bathing, Dressing, Or Getting Around The House? No [email or web address] Information not available 05/21/2023 Can You Handle Your Own Money Without Help? Yes [email or web address] Information not available 05/21/2023 Are You Having Difficulties Driving Your Car? No [email or web address] Information no t available 05/21/2023 Do You Always Fasten Your Seat Belt When You Are In A Car? Yes- Usually [email or web address] Information not available 05/21/2023 How Often During The Past Four Weeks Have You Been Bothered By Any Of The Following Problems? Falling Or Dizzy When Standing Up? Never [email or web address] Information not available 05/21/2023 Sexual Problems? Never [email or web address] Informat ion not available 05/21/2023 Trouble Eating Well? Sometimes Information not available 05/21/2023 Teeth Or Denture Problems? Sometimes [email or web address] Information not available 05/21/2023 Problems Using The Telephone? Never [email or web address] Information not available 05/21/2023 Tiredness Or Fatigue? Sometimes [email or web address] Information not available 05/21/2023 Have You Had 2 Or More Falls Or Sustained An Injury With A Fall In The Last Year? No [email or web address] Information no t available 05/21/2023 Do You Have Difficulty With Walking Or Balance? No [email or web address] Information not available 05/21/2023 Do You Currently Use A Hearing Device? No [email or web address] Information not available 05/21/2023 Do You Currently Have Any Trouble With Your Vision? Yes [email or web address] Information no t available 05/21/2023 Do You Exercise For About 20 Minutes Three Or More Days A Week? Yes- Most Of The Time [email or web address] Information not available 05/21/2023 Are There Any Safety Concerns In Your Home (see Attached [facility] Pamphlet)? No [email or web address] Information not available 05/21/2023 How Often Do You Have Trouble Taking Medicines The Way You Have Been Told To Take Them? I Always Take Them As Prescribed [email or web address] Information not available 05/21/2023 How Confident Are You That You Can Control And Manage Most Of Your Health Problems? Very Confident [email or web address] Information not available 05/21/2023 Do You Currently Have Any Difficulty With Your Hearing? No [email or web address] Information not available 05/21/2023 Date Of Most Recent SBINS 05/21/2023 [email or web address] Information not available 05/21/2023 What Was The Date Of Your Most Recent Tobacco Screening? 09/01/2023 Information not available 09/01/2023 Has Tobacco Cessation Counseling Been Provided? Yes Information not available 09/01/2023 On What Date Was Tobacco Cessation Counseling Provided? 09/01/2023 Information not available 09/01/2023 Do You Or Have You Ever Used Any Other Forms Of Tobacco Or Nicotine? No [email or web address] Information not available 05/21/2023 Sex: Female Functional Status None recorded. Mental Status None recorded. Family History Relationship Description Onset Age of this Age Resolved Age Notes LastModified by Organization Details LastModified Time Sister Family history of Hypertension [email or web address] Not available 12/2022 03:57:11 Sister Family history of breast cancer linnguyen. Not available 2022 03:57:12 Brother Family history of diabetes mellitus type 1 [email or web address] Not available 2022 03:57:12 Notes:*Problem: updated 2021 Mother: at 79 - CHF, COPD, S/P pacemaker due to rhythm abnormalities. Father: at 94y/o from DVT, HTN, h/o blood clots- was on warfarin but then got a brain bleed, ended up with a [place] filter. Brother - Agent orange exposure SISTER [...] preservative free, adsorbed 11/03/2018 completed Not Available [facility] 01/15/2023 04:53:39 Tdap 04/12/2007 completed Not Available [facility] 04:53:39 zoster live 06/16/2012 completed Not Available [facility] 01/15/2023 04:53:40 Pneumococcal conjugate PCV 13 09/17/2015 completed Not Available [facility] 01/15/2023 04:53:40 Influenza, high-dose, trivalent, PF 11/26/2017 completed Not Available [facility] 01/15/2023 04:53:41 Td(adult) unspecified formulation 09/30/1992 completed Not Available [facility] 01/15/2023 04:53:41 Influenza, split virus, trivalent, preservative 11/28/2015 completed Not Available [facility] 01/15/2023 04:53:41 Influenza, split virus, trivalent, preservative 01/04/2015 completed Not Available [facility] 01/15/2023 04:53:41 Influenza, split virus, quadrivalent, PF 12/21/2018 completed Not Available [facility] 01/15/2023 04:53:41 zoster recombinant 08/30/2018 completed Not Available [facility] 01/15/2023 04:53:42 zoster recombinant 01/26/2018 completed Not Available [facility] 01/15/2023 04:53:42 Influenza, high-dose, quadrivalent, PF 12/04/2020 completed Not Available [facility] 01/15/2023 04:53:43 Influenza, high-dose, quadrivalent, PF 12/11/2019 completed Not Available [facility] 01/15/2023 04:53:43 Influenza, high-dose, quadrivalent, PF 12/29/2021 completed Not Available [facility] 01/15/2023 04:53:43 COVID-19, mRNA, LNP-S, PF, 100 mcg/0.5mL dose or 50 mcg/0.25mL dose 07/09/2021 completed Not Available [facility] 01/15/2023 04:53:43 COVID-19 vaccine, vector-nr, rS-Ad26, PF, 0.5 mL 05/02/2020 completed Not Available [facility] 01/15/2023 04:53:44 SARS-COV-2 (COVID-19) vaccine, UNSPECIFIED 05/31/2020 completed Not Available [facility] 01/15/2023 04:53:44 SARS-COV-2 (COVID-19) vaccine, UNSPECIFIED 01/03/2021 completed Not Available [facility] 01/15/2023 04:53:44 pneumococcal polysaccharide PPV23 07/05/2014 completed Not Available [facility] 2022 04:53:45 Hep B, unspecified formulation 04/14/1993 completed Not Available [facility] 01/15/2023 04:53:45 Hep B, unspecified formulation 09/30/1992 completed Not Available [facility] 01/15/2023 04:53:46 Hep B, unspecified formulation 10/31/1992 completed Not Available [facility] 01/15/2023 04:53:46 influenza, unspecified formulation 12/11/2009 completed Not Available [facility] 01/15/2023 04:53:47 influenza, unspecified formulation 12/13/2012 completed Not Available [facility] 01/15/2023 04:53:47 influenza, unspecified formulation 12/18/2008 completed Not Available [facility] 01/15/2023 04:53:47 influenza, unspecified formulation 12/19/2010 completed Not Available [facility] 01/15/2023 04:53:47 influenza, unspecified formulation 12/30/2006 completed Not Available [facility] 01/15/2023 04:53:48 influenza, unspecified formulation 01/09/2014 completed Not Available [facility] 01/15/2023 04:53:48 influenza, unspecified formulation 01/26/2008 completed Not Available [facility] 01/15/2023 04:53:48 influenza, unspecified formulation 02/16/2012 completed Not Available [facility] 01/15/2023 04:53:48 Influenza, high-dose, quadrivalent, PF 12/17/2022 completed Not Available [facility] 03/19/2023 05:33:03 COVID-19, mRNA, LNP-S, PF, herminio-sucrose, 30 mcg/0.3 mL 12/28/2022 completed Not Available [facility] 03/19/2023 05:33:03 Past Encounters Encounter ID Performer Location Encounter Start Date Encounter Closed Date Diagnosis/Indication Diagnosis SNOMED-CT Code Diagnosis ICD10 Code [id number] JU OLIVEIRA MD [facility] [address] [place] [address] 11/26/2023 07:26:08 11/26/2023 08:10:59 Screening mammography 67387433 Z12.31 Adjustment disorder 1722 6007 F43.20 Asthma 932514506 J45.90 9 Essential hypertension 50313888 I10 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 Cardiomyopathy 75442495 I10 Hyperlipidemia 23822136 E78.5 Prediabetes 219639664 R7 3.03 Health Concerns Section Related Observation LastModified by Organization Detai ls LastModified Time None Recorded Concern Status LastModified by Organization Details LastModified Time None Recorded Payers Encounter Date Sequence Insurance Name Policy Number Policy Lema Covered Member ID Lema Member ID Guarantor Name 11/26/2023 1 [id number]IC[place]/ [place]ANTAGE - PPO) [id number] Luna Mott [id number] Luna Mott Notes Date Note Type Note Provider Name and Address Organization Details Recorded Time 11/26/2023 text/html HPI Notes: Thais here today for follow-up of cardiomyopathy, obesity MD [address], [place], [address], [facility]. 11/28/2023 09:26:44 OBGyn Episode No OBEpisode recorded.
--- OUTSIDE RECORDS SUMMARY | 2023-12-10 11:04 | XMS_ITS | Encounter Summary ---
Author Organization [facility] Address [address] [place] [address] Care Team Providers Care Cardiac Cath Rn Name Role Phone Lolly Oliveira MD Primary Care Provider [phone] Encounter Details Date Type Department Care Team (Late st Contact Info) Description 02/20/2020 Lab Requisition [facility] Pathology & Laboratory Medicine - [address] [address] Outr Resulting Lab, Provider Social History Tobacco [...] in accordance with CLIA regulations, [employer] (CAP) guidelines (May 25, 2019), and FDA guidance (May 06, 2019). This test is only for use under the Food and Drug Administration's Emergency Use Authorization. Swab ENTIRE NASOPHARYNX / Unknown 02/19/2020 16:30 EST 02/20/2020 16:09 EST Provider Outr Resulting Lab MICROBIOLOGY - GENERAL ORDERABLES [facility] [place], [place] * COVID-19 TESTING (02/19/2020 16:30 EST) COVID-19 rt-PCR Result NEGATIVE Negative 02/22/2020 23:41 EST [facility] Comment: 2019-novel Coronavirus (2019-nCoV) [...] in accordance with CLIA regulations, [employer] (CAP) guidelines (May 25, 2019), and FDA guidance (May 06, 2019). This test is only for use under the Food and Drug Administration's Emergency Use Authorization. Performing Lab [facility] 02/22/2020 23:41 EST [facility] Swab 02/19/2020 16:3 0 EST 02/20/2020 16:09 EST Provider Outr Resulting Lab MICROBIOLOGY - GENERAL ORDERABLES [facility] [address] [place] [address] [facility] [place], [place] documented in this encounter Visit Diagnoses Not on filedocumented in this encounter Care Teams Cardiac Cath Rn Relationship Specialty Start Date End Date Lolly Oliveira MD [address] [place] [address] PCP - General 11/13/08 documented as of this encounter
--- OUTSIDE RECORDS SUMMARY | 2023-12-10 11:04 | XMS_ITS | Encounter Summary ---
Author Organization [facility] Address [address] [place] [address] Care Team Providers Care Cement Block Maker Name Role Phone Lolly Oliveira MD Primary Care Provider [phone] Encounter Details Date Type Department Care Team (Late st Contact Info) Description 04/12/2007 Results Only [facility] conversion [address] [place] [address] Lolly Oliveira MD [address] [place], [place] [id number] Social History Tobacco Use Types Packs/Day Years [...] ? JING ALVARENGA ? Accession #: ? [id number] : ? 1950 (Age: 56) ??F ?Collect Date: ? 04/12/2007 Location: ? [facility] ? Receive Date: ? 04/13/2007 Provider: ?LOLLY OLIVEIRA MD Copy to: ? Specimen/Source: ?ThinPrep Pap Test, Cervix/Endocervix, processed on [employer] ThinPrep Imaging System, with manual evaluation Last [...] Oliveira MD PATHOLOGY ORDERABLES [facility] [address] [place] [address] documented in this encounter Visit Diagnoses Not on filedocumented in this encounter Care Teams Cement Block Maker Relationship Specialty Start Date End Date Lolly Oliveira MD [address] [place] [address] PCP - General 11/13/08 documented as of this encounter
--- OUTSIDE RECORDS SUMMARY | 2023-12-10 11:04 | XMS_ITS | Clinical Summary ---
Author Organization [facility] Address [address] [place] [address] Care Team Providers Care Rug Dyer Name Role Phone Lolly Oliveira MD Primary Care Provider [phone] Social History Tobacco Use Types Packs/Day Years [...] COVID-19 Vaccine ( season) 2023 Care Teams Rug Dyer Relationship Specialty Start Date End Date Lolly Oliveira MD [address] [place], [place] [id number] PCP - General 11/13/08
--- OUTSIDE RECORDS SUMMARY | 2023-12-10 11:04 | XMS_ITS | Encounter Summary ---
Author Organization [facility] [place] [address] Care Team Providers Care Canal Tender Name Role Phone Lolly Oliveira MD Primary Care Provider [phone] Reason for Visit * Reason Comments Follow-up 8 weeks UVB treatmen t twice weekly Encounter Details Date Type Department Care Team (Late st Contact Info) Description 07/19/2023 11:00 AM EDT Office Visit Dermatology at [address] [phone] Clay Ramírez MD [address], [facility] D[facility]MATOLOGY [place], [place] [phone] Psoriasis Social History Tobacco Use Types Packs/Day [...] CARE FACILITY Hospital Encounter [place] [address] Arrived documented as of this encounter Visit Diagnoses Diagnosis Psoriasis Other psoriasis documented in this encounter Care Teams Canal Tender Relationship Specialty Start Date End Date Lolly Oliveira MD [address] [place] [address] PCP - General 07/17/13 documented as of this encounter
--- OUTSIDE RECORDS SUMMARY | 2023-12-10 11:04 | XMS_ITS | Encounter Summary ---
Author Organization [facility] [place] [address] Care Team Providers Care Hse Specialist Name Role Phone Lolly Oliveira MD Primary Care Provider [phone] Encounter Details Date Type Department Care Team (Latest Contact Info) Description 10/18/2023 10:00 AM EDT - 10/18/2023 11:59 PM EDT Hospital Encounter Non-[place] [phone] Discharge Disposition: Home Social History Tobacco Use [...] with spacer fluticasone propionate (Flonase) 50 mcg/actuation [place], Suspension 1 spray by Each Nare route daily as needed. documented as of this encounter Plan of Treatment Upcoming Encounters Date Type Department Care Team (Late st Contact Info) Description 01/16/2024 10:00 AM EST Hospital Encounter Non-[place]vasive [place] [address] Arrived documented as of this encounter Procedures [...] on filedocumented in this encounter Care Teams Hse Specialist Relationship Specialty Start Date End Date Lolly Oliveira MD [address] [place] [address] PCP - General 07/17/13 documented as of this encounter
--- OUTSIDE RECORDS SUMMARY | 2023-12-10 11:04 | XMS_ITS | Encounter Summary ---
Author Organization [facility] Address [address] [place] [address] Care Team Providers Care Cluster Bore Operator Name Role Phone Lolly Oliveira MD Primary Care Provider [phone] Encounter Details Date Type Department Care Team (Late st Contact Info) Description 06/16/2012 Results Only [facility] - [facility] [address] [place], [place] [phone] Lolly Oliveira MD [address] [place], [place] [phone] Social History Tobacco Use Types Packs/Day Years [...] ? JING ALVARENGA ? Accession #: ? [id number] : ? 1950 (Age: 61) ??F ?Collect [...] MD PATHOLOGY ORDERABLES [facility] [address] [place] [address] documented in this encounter Visit Diagnoses Not on filedocumented in this encounter Care Teams Cluster Bore Operator Relationship Specialty Start Date End Date Lolly Oliveira MD [address] [place] [address] PCP - General 11/13/08 documented as of this encounter
--- OUTSIDE RECORDS SUMMARY | 2023-12-10 11:04 | XMS_ITS | Encounter Summary ---
Author Organization Health system Address [address] [place] [address] Care Team Providers Care Cuff Slitter Name Role Phone Lolly Oliveira MD Primary Care Provider [phone] Encounter Details Date Type Department Care Team (Late st Contact Info) Description 05/29/2002 Results Only [facility] [address] [place] [address] Silvia Diehl, [address] [place] [id number] Social History Tobacco Use Types Packs/Day Years [...] ? JING MOTT ? Accession #: ? [id number] : ? 1950 (Age: 51) ??F ?Collect Date: ? 05/29/2002 Location: ? [facility] ? Receive Date: ? 05/31/2002 Provider: ?SILVIA DIEHL TRAY DELIVERY AIDE Copy to: ? Specimen/Source: ?ThinPrep Pap Test, [...] Report [facility] 05/29/2002 05/31/2002 Silvia Diehl TRAY DELIVERY AIDE PATHOLOGY ORDERABLES [facility] [address] [place] [address] documented in this encounter Visit Diagnoses Not on filedocumented in this encounter Care Teams Cuff Slitter Relationship Specialty Start Date End Date Lolly Oliveira MD [address] [place] [address] PCP - General 11/13/08 documented as of this encounter
--- OUTSIDE RECORDS SUMMARY | 2023-12-10 11:04 | XMS_ITS | Encounter Summary ---
Author Organization [place] [address] Care Team Providers Care Rv Repair Technician Name Role Phone Lolly Oliveira MD Primary Care Provider [phone] Encounter Details Date Type Department Care Team (Late st Contact Info) Description 05/18/2023 Telephone Dermatology at [address] [address] Nora Meredith LPN Social History [...] [facility] Hospital Encounter [place] [address] Arrived documented as of this encounter Visit Diagnoses Not on filedocumented in this encounter Care Teams Rv Repair Technician Relationship Specialty Start Date End Date Lolly Oliveira MD [address] [place] [address] PCP - General 07/17/13 documented as of this encounter
--- OUTSIDE RECORDS SUMMARY | 2023-12-10 11:04 | XMS_ITS | Clinical Summary ---
Author Organization [facility] [place] [address] Care Team Providers Care Car Hostler Name Role Phone Lolly Oliveira MD Primary Care Provider [phone] Allergies Active Allergy Reactions Criticality Noted Date [...] spacer Active fluticasone propionate (Flonase) 50 mcg/actuation [place], Suspension 1 spray by Each Nare route [...] PM EDT Hospital Encounter [place] [address] Discharge Disposition: Home from Last [...] AM EST Hospital Encounter Non-[place] [address] Arrived Health Maintenance Due Date Last Done [...] series) 11/07/2023 Medical Devices Implanted Type Area Cyber Security Administrator Device Identifier Shelf Expiration Date Model / Serial / Lot Bsx: [id number]: 633751-1/18/2 023 Implanted: by Lalit Mcmahon MD (Quantity not on file) Defibrillator Chest Wall [employer] [id number] / [id number] / Bsx: [id number]: [id number]/18/2 023 Implanted: by Lalit Mcmahon MD (Quantity not on file) Lead Heart [employer] [id number] / [id number] / Bsx: [id number]: [id number] Implanted: by Lalit Mcmahon MD (Quantity not on file) Lead Heart [employer] [id number] / [id number] / Bsx: [id number]: 156830-5/18/2 023 Implanted: by Lalit Mcmahon MD (Quantity not on file) Lead Heart [employer] 0672 / [id number] / Procedures Procedure Name Priority Date/Time Associated [...] Status decision made by: Patient Care Teams Car Hostler Relationship Specialty Start Date End Date Lolly Oliveira MD [address] [place] [id number] PCP - General 07/17/13
--- OUTSIDE RECORDS SUMMARY | 2023-12-10 11:04 | XMS_ITS | Data Portability ---
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 All [email or web address] Information not available 05/21/2023 During The Past Four Weeks, Was Someone Available To Help You If You Needed And Wanted Help? (For Example, If You Marble Very Nervous, Lonely, Or Blue; Got Sick And Had To Stay In Bed; Needed Someone To Talk To; Needed Help With Daily Chores; Or Needed Help Just Taking Care Of Yourself.) No- Not At All Information n ot available 05/21/2023 During The Past Four Weeks, What Was The Hardest Physical Activity You Could Do For At Least 2 Minutes? Moderate [email or web address] Information not available 05/21/2023 Can You Get To Places Out Of Walking Distance Without Help? (For Example, Can You Travel Alone On Buses Or Taxis, Or Drive Your Own Car?) Yes [email or web address] Information not available 05/21/2023 Can You Go Shopping For Groceries Or Clothes Without Someone? s Help? Yes [email or web address] Information not available 05/21/2023 Can You Prepare Your Own Meals? Yes [email or web address] Information not available 05/21/2023 Can You Do Your Housework Without Help? Yes [email or web address] Information not available 05/21/2023 Because Of Any Health Problems, Do You Need The Help Of Another Person With Your Personal Care Needs Such As Eating, Bathing, Dressing, Or Getting Around The House? No [email or web address] Information not available 05/21/2023 Can You Handle Your Own Money Without Help? Yes [email or web address] Information not available 05/21/2023 Are You Having Difficulties Driving Your Car? No [email or web address] Information no t available 05/21/2023 Do You Always Fasten Your Seat Belt When You Are In A Car? Yes- Usually [email or web address] Information not available 05/21/2023 How Often During The Past Four Weeks Have You Been Bothered By Any Of The Following Problems? Falling Or Dizzy When Standing Up? Never Information not available 05/21/2023 Sexual Problems? Never [email or web address] Informat ion not available 05/21/2023 Trouble Eating Well? Sometimes [email or web address] Information not available 05/21/2023 Teeth Or Denture Problems? Sometimes [email or web address] Information not available 05/21/2023 Problems Using The Telephone? Never [email or web address] Information not available 05/21/2023 Tiredness Or Fatigue? Sometimes [email or web address] Information not available 05/21/2023 Have You Had 2 Or More Falls Or Sustained An Injury With A Fall In The Last Year? No [email or web address] Information no t available 05/21/2023 Do You Have Difficulty With Walking Or Balance? No Information not available 05/21/2023 Do You Currently Use A Hearing Device? No [email or web address] Information not available 05/21/2023 Do You Currently Have Any Trouble With Your Vision? Yes fdinulyk51 Information no t available 05/21/2023 Do You Exercise For About 20 Minutes Three Or More Days A Week? Yes- Most Of The Time [email or web address] Information not available 05/21/2023 Are There Any Safety Concerns In Your Home (see Attached CDC Pamphlet)? No [email or web address] Information not available 05/21/2023 How Often Do You Have Trouble Taking Medicines The Way You Have Been Told To Take Them? I Always Take Them As Prescribed [email or web address] Information not available 05/21/2023 How Confident Are You That You Can Control And Manage Most Of Your Health Problems? Very Confident [email or web address] Information not available 05/21/2023 Do You Currently Have Any Difficulty With Your Hearing? No [email or web address] Information not available 05/21/2023 Date Of Most [...] Other Forms Of Tobacco Or Nicotine? No [email or web address] Information not available 05/21/2023 Sex: Female Functional Status None recorded. Mental Status None recorded. Family History Relationship Description Onset Age of this Age Resolved Age Notes LastModified by Organization Details LastModified Time Sister Family history of Hypertension [email or web address] Not available 12/2022 03:57:11 Sister Family history [...] free, adsorbed 11/03/2018 completed Not Available [facility] 01/15/2023 04:53:39 Tdap 04/12/2007 completed Not Available [facility] 04:53:39 zoster live 06/16/2012 completed Not Available [facility] 01/15/2023 04:53:40 Pneumococcal conjugate PCV 13 09/17/2015 completed Not Available [facility] 01/15/2023 04:53:40 Influenza, high-dose, trivalent, PF 11/26/2017 completed Not Available [facility] 01/15/2023 04:53:41 Td(adult) unspecified formulation 09/30/1992 completed Not Available [facility] 01/15/2023 04:53:41 Influenza, split virus, trivalent, preservative 11/28/2015 completed Not Available [facility] 01/15/2023 04:53:41 Influenza, split virus, trivalent, preservative 01/04/2015 completed Not Available [facility] 01/15/2023 04:53:41 Influenza, split virus, quadrivalent, PF 12/21/2018 completed Not Available [facility] 01/15/2023 04:53:41 zoster recombinant 08/30/[address] [facility] 01/15/2023 04:53:42 zoster recombinant 01/26/[address] [facility] 01/15/2023 04:53:42 Influenza, high-dose, quadrivalent, PF 12/04/2020 completed Not Available [facility] 01/15/2023 04:53:43 Influenza, high-dose, quadrivalent, PF 12/11/2019 completed Not Available [facility] 01/15/2023 04:53:43 Influenza, high-dose, quadrivalent, PF 12/29/2021 completed Not Available [facility] 01/15/2023 04:53:43 COVID-19, mRNA, LNP-S, PF, 100 mcg/0.5mL dose or 50 mcg/0.25mL dose 07/09/2021 completed Not Available [facility] 01/15/2023 04:53:43 COVID-19 vaccine, vector-nr, rS-Ad26, PF, 0.5 mL 05/02/2020 completed Not Available [facility] 01/15/2023 04:53:44 SARS-COV-2 (COVID-19) vaccine, UNSPECIFIED 05/31/2020 completed Not Available [facility] 01/15/2023 04:53:44 SARS-COV-2 (COVID-19) vaccine, UNSPECIFIED 01/03/2021 completed Not Available [facility] 01/15/2023 04:53:44 pneumococcal polysaccharide PPV23 07/05/2014 completed Not Available [facility] 2022 04:53:45 Hep B, unspecified formulation 04/14/1993 completed Not Available [facility] 01/15/2023 04:53:45 Hep B, unspecified formulation 09/30/1992 completed Not Available [facility] 01/15/2023 04:53:46 Hep B, unspecified formulation 10/31/1992 completed Not Available [facility] 01/15/2023 04:53:46 influenza, unspecified formulation 12/11/2009 completed Not Available [facility] 01/15/2023 04:53:47 influenza, unspecified formulation 12/13/2012 completed Not Available [facility] 01/15/2023 04:53:47 influenza, unspecified formulation 12/18/2008 completed Not Available [facility] 01/15/2023 04:53:47 influenza, unspecified formulation 12/19/2010 completed Not Available [facility] 01/15/2023 04:53:47 influenza, unspecified formulation 12/30/2006 completed Not Available [facility] 01/15/2023 04:53:48 influenza, unspecified formulation 01/09/2014 completed Not Available [facility] 01/15/2023 04:53:48 influenza, unspecified formulation 01/26/2008 completed Not Available [facility] 01/15/2023 04:53:48 influenza, unspecified formulation 02/16/2012 completed Not Available [facility] 01/15/2023 04:53:48 Influenza, high-dose, quadrivalent, PF 12/17/2022 completed Not Available [facility] 03/19/2023 05:33:03 COVID-19, mRNA, LNP-S, PF, herminio-sucrose, 30 mcg/0.3 mL 12/28/2022 completed Not Available [facility] 03/19/2023 05:33:03 Past Encounters Encounter ID Performer Location Encounter Start Date Encounter Closed Date Diagnosis/Indication Diagnosis SNOMED-CT Code Diagnosis ICD10 Code [id number] LOLLY CORTEZ MD [facility] [address] [place] [address] 05/21/2023 10:03:54 05/21/2023 11:37:49 Onychomycosis 701138169 B35.1 Asthma 137468437 J45.90 9 Cardiomyopathy 84653848 I10 Disorder of hip joint 42 8301701 M12.859 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 Hyperlipidemia 62891349 E78.5 Vulval and /or perineal noninflammatory disorders 657361136 N90.9 Adult heal th examination 897959699 Z00.[id number] [address] [place] [address] 09/01/2023 10:23:16 09/01/2023 13:28:10 Vertigo 149848112 R42 Impacted c erumen of bilateral ears 9435379356 606507 H61.23 [id number] LOLLY CORTEZ MD [facility] [address] [place] [address] 11/26/2023 07:26:08 11/26/2023 08:10:59 Screening mammography 21699283 Z12.31 Adjustment disorder 1722 6007 F43.20 Asthma 689076407 J45.90 9 Essential hypertension 43736804 I10 Guttate psoriasis 559406 00 L40.4 Cardiomyopathy 59864146 I10 Hyperlipidemia 66193073 E78.5 Prediabetes 394414157 R7 3.03 Health Concerns Section Related Observation LastModified by Organization Detai ls LastModified Time None Recorded Concern Status LastModified by Organization Details LastModified Time None Recorded Advance Directives Directive None Recorded Payers Encounter Date Sequence Insurance Name Policy Number Policy Lema Covered Member ID Lema Member ID Guarantor Name 05/21/2023 1 [place] - [place]PO) [id number] Luna Blandon Winslow [id number] Luna Blandon Winslow 09/01/2023 1 [place] - [place]) [id number] Luna Blandon Tiera [id number] Luna E Winslow 11/26/2023 1 [place] - [place]PO) [id number] Luna Blandon Winslow [id number] Luna E Winslow Notes Date Note Type Note Provider Name and Address Organization Details Recorded Time 05/21/2023 text/html HPI Notes: Thais here today for an annual wellness exam LOLLY CORTEZ MD [facility] [address], [place], [address], [facility]. 05/24/2023 18:32:35 09/01/2023 text/html HPI [...] it. JESSICA INGRAM PA-C [address], [place], [address], [facility]. 09/01/2023 13:55:07 11/26/2023 text/html HPI Notes: Thais here today for follow-up of cardiomyopathy, obesity LOLLY CORTEZ MD [address], [place], [address], [facility]. 11/28/2023 09:26:44 OBGyn Episode No OBEpisode recorded.
--- OUTSIDE RECORDS SUMMARY | 2023-12-10 11:04 | XMS_ITS | Encounter Summary ---
Author Organization [facility] [place] [address] Care Team Providers Care Die Maker Stamping Name Role Phone Lolly Oliveira MD Primary Care Provider [phone] Encounter Details Date Type Department Care Team (Late st Contact Info) Description 05/18/2023 Refill Dermatology at [address] [address] Nora Meredith LPN Social History [...] patient. She voiced understanding. Order sent to [facility] drug. documented in this encounter Plan of Treatment Upcoming Encounters Date Type Department Care Team (Late st Contact Info) Description 01/16/2024 10:00 AM EST Hospital Encounter [place] [address] Arrived documented as of this encounter Visit Diagnoses Not on filedocumented in this encounter Care Teams Die Maker Stamping Relationship Specialty Start Date End Date Lolly Oliveira MD [address] [place] [address] PCP - General 07/17/13 documented as of this encounter
--- OUTSIDE RECORDS SUMMARY | 2023-12-10 11:04 | XMS_ITS | Encounter Summary ---
Author Organization [facility] [place] [address] Care Team Providers Care Custom Car Builder Name Role Phone Lolly Oliveira MD Primary Care Provider [phone] Encounter Details Date Type Department Care Team (Latest Contact Info) Description 07/20/2023 10:00 AM EDT - 07/20/2023 11:59 PM EDT Hospital Encounter Non-[place] [address] Discharge Disposition: Home Social History Tobacco Use [...] with spacer fluticasone propionate (Flonase) 50 mcg/actuation [place], Suspension 1 spray by Each Nare route daily as needed. documented as of this encounter Plan of Treatment Upcoming Encounters Date Type Department Care Team (Late st Contact Info) Description 01/16/2024 10:00 AM [facility] Hospital Encounter Non-[place] [address] Arrived documented as of this encounter Procedures [...] on filedocumented in this encounter Care Teams Custom Car Builder Relationship Specialty Start Date End Date Lolly Oliveira MD [address] [place] [address] PCP - General 07/17/13 documented as of this encounter
--- OUTSIDE RECORDS SUMMARY | 2023-12-10 11:04 | XMS_ITS | Encounter Summary ---
Author Organization [facility] Address [address] [place] [address] Care Team Providers Care Craft Recruiter Name Role Phone Lolly Oliveira MD Primary Care Provider [phone] Encounter Details Date Type Department Care Team (Late st Contact Info) Description 04/25/2009 Orders Only [facility] Laboratory Services - [facility] ([facility] [address], [place] [phone] Lolly Oliveira MD [address] [place], [place] [phone] Social History Tobacco Use Types Packs/Day Years [...] ? JING ALVARENGA ? Accession #: ? [id number] ? : ? 1950 (Age: 58) ??F [...] reviewed and electronically signed by: ? Helena Buda, [place](ASCP) ? Report Date: ??04/29/2009 10:38 ? End of Report ? [facility] 04/25/2009 04/26/2009 Lolly Oliveira MD PATHOLOGY ORDERABLES [facility] [address] [place] [address] documented in this encounter Visit Diagnoses Not on filedocumented in this encounter Care Teams Craft Recruiter Relationship Specialty Start Date End Date Lolly Oliveira MD [address] [place] [address] PCP - General 11/13/08 documented as of this encounter
--- OUTSIDE RECORDS SUMMARY | 2023-12-10 11:04 | XMS_ITS | Encounter Summary ---
Author Organization [facility] Address [address] [place] [address] Care Team Providers Care First Grade Teacher Name Role Phone Lolly Oliveira MD Primary Care Provider [phone] Encounter Details Date Type Department Care Team (Late st Contact Info) Description 03/06/2003 Results Only [facility] conversion [address] [place] [address] Lolly Oliveira MD [address] [place], [place] [phone] Social History Tobacco Use Types Packs/Day Years [...] Oliveira MD PATHOLOGY ORDERABLES Performing Organization Address City/State/[facility] Co de Phone Number [facility] [address] [place] [address] documented in this encounter Visit Diagnoses Not on filedocumented in this encounter Care Teams First Grade Teacher Relationship Specialty Start Date End Date Lolly Oliveira MD [address] [place] [address] PCP - General 11/13/08 documented as of this encounter
--- OUTSIDE RECORDS SUMMARY | 2023-12-10 11:04 | XMS_ITS | Encounter Summary ---
Author Organization [facility] Address [facility] [place] [address] Care Team Providers Care Perioperative Tech Name Role Phone Lolly Oliveira MD Primary Care Provider [phone] Encounter Details Date Type Department Care Team (Late st Contact Info) Description 05/03/2023 Telephone Cardiology at [address] [phone] Lalit Mcmahon MD [facility] [place] [address] Social History Tobacco Use Types Packs/Day Years [...] AM EST Hospital Encounter Non-Invasive [place] [address] Arrived documented as of this encounter Visit Diagnoses Not on filedocumented in this encounter Care Teams Perioperative Tech Relationship Specialty Start Date End Date Lolly Oliveira MD [address] [place] [address] PCP - General 07/17/13 documented as of this encounter
--- OUTSIDE RECORDS SUMMARY | 2023-12-10 11:04 | XMS_ITS | Encounter Summary ---
Author Organization [facility] Address [address] [place] [address] Care Team Providers Care Firer Powerhouse Name Role Phone Lolly Oliveira MD Primary Care Provider [phone] Encounter Details Date Type Department Care Team (Late st Contact Info) Description 04/17/2005 Results Only [facility] conversion [address] [place] [address] Lolly Oliveira MD [address] [place], [place] [phone] Social History Tobacco Use Types Packs/Day Years [...] ? JING ALVARENGA ? Accession #: ? [id number] : ? 1950 (Age: 54) ??F ?Collect Date: ? 04/17/2005 Location: ? [facility] ? Receive Date: ? 04/21/2005 Provider: ?LOLLY OLIVEIRA MD Copy to: ? Specimen/Source: ?ThinPrep Pap Test, Cervix/Endocervix, processed on NeprisPrep Imaging System, with manual evaluation Last Menstrual [...] Oliveira MD PATHOLOGY ORDERABLES [facility] [address] [place] [address] documented in this encounter Visit Diagnoses Not on filedocumented in this encounter Care Teams Firer Powerhouse Relationship Specialty Start Date End Date Lolly Oliveira MD [address] [place] [address] PCP - General 11/13/08 documented as of this encounter
--- OUTSIDE RECORDS SUMMARY | 2023-12-10 11:04 | XMS_ITS | Encounter Summary ---
Author Organization [facility] Address [address] [place] [address] Care Team Providers Care Milk Drier Name Role Phone Lolly Oliveira MD Primary Care Provider [phone] Encounter Details Date Type Department Care Team (Late st Contact Info) Description 04/01/2005 Results Only [facility] [address] [place] [address] Blair Dukes MD [address] [place] [phone] Social History Tobacco Use Types Packs/Day Years [...] ? JING ALVARENGA ? Accession #: ? [id number] ? : ? 1950 (Age: 54) ??F [...] (A). Received in [place]' s fixative labelled [place] and #2 ??transverse colon bx is a single 0.2 x 0.2 x 0.2 cm tissue, submitted intact as (B). ??(Dr. Lechuga)/[facility] End of Report [facility] 04/01/2005 04/02/2005 15: 24 EST Blair Dukes MD PATHOLOGY ORDERABLES [facility] [address] [place] [address] documented in this encounter Visit Diagnoses Not on filedocumented in this encounter Care Teams Milk Drier Relationship Specialty Start Date End Date Lolly Oliveira MD [address] [place] [address] PCP - General 11/13/08 documented as of this encounter
--- OUTSIDE RECORDS SUMMARY | 2023-12-10 11:04 | XMS_ITS | Encounter Summary ---
Author Organization [facility] Address [address] [place] [address] Care Team Providers Care Rn Er Name Role Phone Lolly Oliveira MD Primary Care Provider [phone] Encounter Details Date Type Department Care Team (Late st Contact Info) Description 05/02/2004 Results Only [facility] [address] [place] [address] Lolly Oliveira MD [address] [place], [place] [phone] Social History Tobacco Use Types Packs/Day Years [...] 66. [facility] Report Status Final [id number] [facility] 05/02/2004 9:32 EST 05/10/2004 9:32 EST Lolly Oliveira MD MICROBIOLOGY - GENER AL ORDERABLES [facility] [address] [place] [address] * CYTOPATHOLOGY (05/02/2004 0:00 EST) Pathology Report: CYTOPATHOLOGY REPORT Reports generated via electronic interface contain original data; however they are lacking the format of the original report. Caution should be taken when reading/interpreti ng unformatted reports. Name: ? JING ALVARENGA ? Accession #: ? [id number] : ? 1950 (Age: 53) ??F ?Collect [...] [facility] Co de Phone Number [facility] [address] [place] [address] documented in this encounter Visit Diagnoses Not on filedocumented in this encounter Care Teams Rn Er Relationship Specialty Start Date End Date Lolly Oliveira MD [address] [place] [address] PCP - General 11/13/08 documented as of this encounter
--- OUTSIDE RECORDS SUMMARY | 2023-12-10 11:05 | XMS_ITS | Encounter Summary ---
Author Organization [facility] [place] [address] Care Team Providers Care Parts Salvager Name Role Phone Lolly Oliveira MD Primary Care Provider Reason for Referral * Diagnostic Test (Routine) - Closed Specialty Diagnoses / Procedures Referred By Contac t Referred To Contact Radiology Diagnoses Left bundle branch block Nonischemic cardiomyopathy Procedures MRI Cardiac Morphology Function With Flow Velocity Quantification wwo Contrast MRI Cardiac Morphology Function wwo Contrast Lalit Mcmahon MD [facility] [place] [address] [place] [address] Referral ID Status Reason Start Date Expiration Date V isits Requested Visits Authorized [id number] Closed Specialty Service Requested 05/06/2022 11/07/2023 2 1 Encounter Details Date Type Department Care Team (Late st Contact Info) Description 05/06/2022 Orders Only Cardiology at [address] [address] Lalit Mcmahon MD [facility] [place] [address] Left bundle branch block; Nonischemic cardiomyopathy Social [...] AM EST Hospital Encounter Non-Invasive [place] [address] Arrived documented as of this encounter Results [...] questions please contact the health acute care certified nursing assistant that requested your imaging first. ? [...] have questions please contactthe health acute care certified nursing assistant that requested your imaging first. Lalit Mcmahon MD IMG MRI ORDERABLES documented in this encounter Visit Diagnoses Diagnosis Left bundle branch block Other left bundle branch block Nonischemic cardiomyopathy Other primary cardiomyopathies Left bundle branch block Other left bundle branch block Nonischemic cardiomyopathy Other primary cardiomyopathies documented in this encounter Care Teams Parts Salvager Relationship Specialty Start Date End Date Lolly Oliveira MD [address] [place] [address] PCP - General 07/17/13 documented as of this encounter
--- OUTSIDE RECORDS SUMMARY | 2023-12-10 11:05 | XMS_ITS | Encounter Summary ---
Author Organization [facility] [place] [address] Care Team Providers Care Ict Account Manager Name Role Phone Lolly Oliveira MD Primary Care Provider [phone] Reason for Visit * Reason Comments Skin Check Encounter Details Date Type Department Care Team (Late st Contact Info) Description 11/23/2014 10:00 AM EDT Office Visit Dermatology at [address] [address] Clay Ramírez MD [address] [facility], [place] [address] Dermatofibroma; Nevus; Solar lentigo Discharge Disposition: Home [...] [facility] Hospital Encounter [place] [address] Arrived documented as of this encounter Visit Diagnoses Diagnosis Dermatofibroma Benign neoplasm of skin, site unspecified Nevus Benign neoplasm of skin, site unspecified Solar lentigo Other dyschromia documented in this encounter Care Teams Ict Account Manager Relationship Specialty Start Date End Date Lolly Oliveira MD [address] [place] [address] PCP - General 07/17/13 documented as of this encounter
--- OUTSIDE RECORDS SUMMARY | 2023-12-10 11:05 | XMS_ITS | Encounter Summary ---
Author Organization [facility] [place] [address] Care Team Providers Care Director China Name Role Phone Lolly Oliveira MD Primary Care Provider [phone] Reason for Visit * Reason Comments Psoriasis Encounter Details Date Type Department Care Team (Late st Contact Info) Description 04/09/2022 1:45 PM EST Office Visit Dermatology at [address] [address] Clay Ramírez MD [address] [facility], [place] [address] Psoriasis, guttate Social History Tobacco Use Types [...] AM EST Hospital Encounter Non-[place] [address] Arrived documented as of this encounter Visit Diagnoses Diagnosis Psoriasis, guttate Other psoriasis documented in this encounter Care Teams Director China Relationship Specialty Start Date End Date Lolly Oliveira MD [address] [place] [address] PCP - General 07/17/13 documented as of this encounter
--- OUTSIDE RECORDS SUMMARY | 2023-12-10 11:05 | XMS_ITS | Encounter Summary ---
[place] [address] Care Team Providers Care Grips Name Role Phone Lolly Oliveira MD Primary Care Provider [phone] Encounter Details Date Type Department Care Team [...] AM EST Hospital Encounter Non-Invasive [place] [address] Arrived documented as of this encounter Visit Diagnoses Not on filedocumented in this encounter Care Teams Grips Relationship Specialty Start Date End Date Lolly Oliveira MD [address] [place] [address] PCP - General 07/17/13 documented as of this encounter
--- OUTSIDE RECORDS SUMMARY | 2023-12-10 11:05 | XMS_ITS | Encounter Summary ---
[place] [address] Care Team Providers Care Dietician Name Role Phone Lolly Oliveira MD Primary Care Provider [phone] Encounter Details Date Type Department Care Team [...] AM EST Hospital Encounter Non-Invasive [place] [address] Arrived documented as of this encounter Visit Diagnoses Not on filedocumented in this encounter Care Teams Dietician Relationship Specialty Start Date End Date Lolly Oliveira MD [address] [place] [address] PCP - General 07/17/13 documented as of this encounter
--- OUTSIDE RECORDS SUMMARY | 2023-12-10 11:05 | XMS_ITS | Encounter Summary ---
Author Organization [facility] [place] [address] Care Team Providers Care Clinical Dermatologist Name Role Phone Lolly Oliveira MD Primary Care Provider [phone] Encounter Details Date Type Department Care Team (Late Contact Info) Description 01/14/2022 Telephone Dermatology at [address] [address] Nora Meredith LPN Social History [...] to phototherapy. New order sent to [facility]. Reviewed with patient Dr. Mar recommendation. She agrees with plan of care. Advised patient order will be sent to [facility]. She voiced understanding. documented in this encounter Plan of Treatment Upcoming Encounters Date Type Department Care Team (Late Contact Info) Description 01/16/2024 10:00 AM EST Hospital Encounter Non[place] [address] Arrived documented as of this encounter Visit Diagnoses Not on filedocumented in this encounter Care Teams Clinical Dermatologist Relationship Specialty Start Date End Date Lolly Oliveira MD [address] [place] [address] PCP - General 07/17/13 documented as of this encounter
--- OUTSIDE RECORDS SUMMARY | 2023-12-10 11:05 | XMS_ITS | Encounter Summary ---
Author Organization [facility] [place] [address] Care Team Providers Care Sterile Processing Tech Name Role Phone Lolly Oliveira MD Primary Care Provider [phone] Encounter Details Date Type Department Care Team (Late st Contact Info) Description 04/01/2021 3:30 PM EST Office Visit Dermatology at [address] [phone] Clay Ramírez MD [address] [facility] [address], [place] [address] Psoriasis, guttate Social History Tobacco Use Types [...] AM EST Hospital Encounter Non-Invasive [place] [address] Arrived documented as of this encounter Visit Diagnoses Diagnosis Psoriasis, guttate Other psoriasis documented in this encounter Care Teams Sterile Processing Tech Relationship Specialty Start Date End Date Lolly Oliveira MD [address] [place] [address] PCP - General 07/17/13 documented as of this encounter
--- OUTSIDE RECORDS SUMMARY | 2023-12-10 11:05 | XMS_ITS | Encounter Summary ---
Author Organization [facility] [place] [address] Care Team Providers Care Inspector Casing Name Role Phone Lolly Oliveira MD Primary Care Provider [phone] Reason for Referral * Diagnostic Test (Routine) - Closed Specialty Diagnoses / Procedures Referred By Contac t Referred To Contact Radiology Diagnoses Left bundle branch block Nonischemic cardiomyopathy Procedures MRI Cardiac Morphology Function With Flow Velocity Quantification [facility] Contrast MRI Cardiac Morphology Function wwo Contrast Lalit Mcmahon MD [facility] [place] [address] [place] [address] Referral ID Status Reason Start Date Expiration Date V isits Requested Visits Authorized [id number] Closed Specialty Service Requested 05/06/2022 11/07/2023 2 1 Reason for Visit * Diagnostic Test (Routine) - Closed Specialty Diagnoses / Procedures Referred By Contac t Referred To Contact Radiology Diagnoses Left bundle branch block Nonischemic cardiomyopathy Procedures MRI Cardiac Morphology Function With Flow Velocity Quantification o Contrast MRI Cardiac Morphology Function wwo Contrast Lalit Mcmahon MD [facility] [place] [address] [place] [address] Referral ID Status Reason Start Date Expiration Date V isits Requested Visits Authorized [id number] Closed Specialty Service Requested 05/06/2022 11/07/2023 2 1 Encounter Details Date Type Department Care Team (Latest Contact Info) Description 07/14/2022 9:08 AM EDT Hospital Encounter MRI at [facility] [place] [phone] Lalit Mcmahon MD [facility] [place] [address] Left bundle branch block; Nonischemic cardiomyopathy Discharge [...] with spacer fluticasone propionate (Flonase) 50 mcg/actuation [place], Suspension 1 spray by Each Nare route [...] 71 y.o. : 1950 [address] [facility] [place] [address] Female [phone] (home) No relevant phone numbers on file. Lolly Oliveira MD None Allergies Allergen Reactions ??? Sulfa (Sulfonamide Antibiotics) Date/Time of call: July 07, 2022/11:03 AM/ PREVIOUS MRI SCAN? HEIGHT: WEIGHT: SCHEDULED SCAN: MRI CARDIAC MORPHOLOGY FUNCTION WITH FLOW VELOCITY QUANTIFICATION WWO CONTRAST [[id number]] Order Questions Answers Where will study be performed? [facility] Radiology [120] SUBJECTIVE: Very Claustrophobic [...] ) You must have a pile driver present when you check in. This patient has been informed that they require a pile driver to drive them home after this procedure. In the absence of a pile driver, IR will not be able to sedate for your scan. Pt verbalized understanding of these instructions during the pre-procedure education via phone. Yes Name of pile driver: Daughter Phone number: PRIOR SCAN DATE/S SEDATION TYPE SUCCESSFUL 07/14/22 MRI Cardiac Morphology Function with Flow Velocity Quantification wwo Contrast Ativan 1mg x 1 dose Pass Revised 08/03/17 documented in this encounter Plan of Treatment Upcoming Encounters Date Type Department Care Team (Late st Contact Info) Description 01/16/2024 10:00 AM [facility] Encounter Non-Invasive [place] [address] Arrived documented as of this encounter Procedures [...] worker that requested your imaging first. ? Electronically signed by: Greyson Herron MD, [facility] ([phone]), at 07/15/2022 9:53 AM Narrative 07/15/2022 9:53 [...] mg documented in this encounter Care Teams Inspector Casing Relationship Specialty Start Date End Date Lolly Oliveira MD [address] [place] [address] PCP - General 07/17/13 documented as of this encounter
--- OUTSIDE RECORDS SUMMARY | 2023-12-10 11:05 | XMS_ITS | Encounter Summary ---
Author Organization [facility] [place] [address] Care Team Providers Care Chemistry Teacher Name Role Phone Lolly Oliveira MD Primary Care Provider [phone] Encounter Details Date Type Department Care Team (Late st Contact Info) Description 03/15/2023 Telephone Cardiology at [address] [phone] Saranya Ma Social History Tobacco Use Types Packs/Day Years Used Date Smoking Tobacco: Never Alcohol Use Standard Drinks/Week Comments Not Currently 0 (1 standard drink = 0.6 oz pur e alcohol) [facility] Inpatient Questions Answer Date Recorded [...] her to have an echo done at [facility] prior to her appt withnjm there on 05/12/23. Message sent to Dr. Mcmahon asking him to put order in if he would like her to have this done. Saranya Ma Sr. Clinical Procedure [place]/Outside Sales Executive documented in this encounter Plan of Treatment Upcoming Encounters Date Type Department Care Team (Late st Contact Info) Description 01/16/2024 10:00 AM EST Hospital Encounter Non-Invasive [place] [address] Arrived documented as of this encounter Visit Diagnoses Not on filedocumented in this encounter Care Teams Chemistry Teacher Relationship Specialty Start Date End Date Lolly Oliveira MD [address] [place] [address] PCP - General 07/17/13 documented as of this encounter
--- OUTSIDE RECORDS SUMMARY | 2023-12-10 11:05 | XMS_ITS | Encounter Summary ---
Author Organization [facility] [place] [address] Care Team Providers Care Rn X Ray Name Role Phone Lolly Oliveira MD Primary Care Provider [phone] Encounter Details Date Type Department Care Team (Late st Contact Info) Description 11/16/2022 Telephone Cardiology at [address] [phone] Luna Rousseau, RN Social History Tobacco Use Types Packs/Day Years Used Date Smoking Tobacco: Never Alcohol Use Standard Drinks/Week Comments Not Currently 0 (1 standard drink = 0.6 oz pur e alcohol) [facility] Inpatient Questions Answer Date Recorded Does Anyone [...] BP today was 118/57 at CR at [facility]. Pt is going twice a [...] [facility] Hospital Encounter Non-[place] [address] Arrived documented as of this encounter Visit Diagnoses Not on filedocumented in this encounter Care Teams Rn X Ray Relationship Specialty Start Date End Date Lolly Oliveira MD [address] [place] [address] PCP - General 07/17/13 documented as of this encounter
--- OUTSIDE RECORDS SUMMARY | 2023-12-10 11:05 | XMS_ITS | Encounter Summary ---
Author Organization [facility] [place] [address] Care Team Providers Care New Car Get Ready Mechanic Name Role Phone Lolly Oliveira MD Primary Care Provider [phone] Reason for Visit * Reason Onset Date Comments Other 07/24/2022 Implanted Cardia c Device Teaching/Education Encounter Details Date Type Department Care Team (Late st Contact Info) Description 07/24/2022 Notes Only Cardiology at [address] [phone] Letha Arroyo Other (Implanted Cardiac Device Teaching/Education) [...] to call the Cardiac Device Clinic at [phone] with any questions. Plan: Post op check: [...] [facility]ARE CENTER Hospital Encounter Non-Invasive [place] [address] Arrived documented as of this encounter Visit Diagnoses Not on filedocumented in this encounter Care Teams New Car Get Ready Mechanic Relationship Specialty Start Date End Date Lolly Oliveira MD [address] [place] [address] PCP - General 07/17/13 documented as of this encounter
--- OUTSIDE RECORDS SUMMARY | 2023-12-10 11:05 | XMS_ITS | Encounter Summary ---
[place] [address] Care Team Providers Care Plugger Man Name Role Phone Lolly Oliveira MD Primary Care Provider Encounter Details Date Type Department Care Team (Late st Contact Info) Description 04/09/2022 Refill Dermatology at [address] [address] Nora Meredith, CARGOMAN Social History Tobacco Use Types Packs/Day Years [...] [facility] Hospital Encounter Non-[place] [address] Arrived documented as of this encounter Visit Diagnoses Not on filedocumented in this encounter Care Teams Plugger Man Relationship Specialty Start Date End Date Lolly Oliveira MD [address] [place] [address] PCP - General 07/17/13 documented as of this encounter
--- OUTSIDE RECORDS SUMMARY | 2023-12-10 11:05 | XMS_ITS | Encounter Summary ---
Author Organization [facility] Address [facility] [place] [address] Care Team Providers Care Hand Tube Bender Name Role Phone Lolly Oliveira MD Primary Care Provider [phone] Reason for Referral * Diagnostic Test (Routine) - Closed Specialty Diagnoses / Procedures Referred By Contkoki t Referred To Contact Cardiology Diagnoses Nonischemic cardiomyopathy Biventricular ICD (implantable cardioverter-defibrillator) in place Procedures Echocardiogram Transthoracic Lalit Mcmahon MD [facility] [place] [address] Referral ID Status Reason Start Date Expiration Date V isits Requested Visits Authorized [id number] Closed Specialty Service Requested 03/15/2023 09/11/2023 1 1 Encounter Details Date Type Department Care Team (Late st Contact Info) Description 03/15/2023 Orders Only Cardiology at [address] [address] Lalit Mcmahon MD [facility] [place] [address] Nonischemic cardiomyopathy; Biventricular ICD (implantable cardioverter-defibrill ator) in place Social History Tobacco Use Types Packs/Day Years Used Date Smoking Tobacco: Never Alcohol Use Standard Drinks/Week Comments Not Currently 0 (1 standard drink = 0.6 oz pur e alcohol) [facility] Inpatient Questions Answer Date Recorded [...] AM EST Hospital Encounter Non-[place] [address] Arrived Scheduled Orders Name Type Priority Associated Diagnoses Order Schedule Echocardiogram Transthoracic Echocardiography Routine Nonischemic cardiomyopathy Biventricular ICD (implantable cardioverter-defibr illator) in place Expected: 05/05/2023, Expires: 11/04/2023 documented as of this encounter Visit Diagnoses Diagnosis Nonischemic cardiomyopathy Other primary cardiomyopathies Biventricular ICD (implantable cardioverter-defibrillator) in place documented in this encounter Care Teams Hand Tube Bender Relationship Specialty Start Date End Date Lolly Oliveira MD [address] [place] [address] PCP - General 07/17/13 documented as of this encounter
--- OUTSIDE RECORDS SUMMARY | 2023-12-10 11:05 | XMS_ITS | Encounter Summary ---
Author Organization [facility] [place] [address] Care Team Providers Care Forest Management Teacher Name Role Phone Lolly Oliveira MD Primary Care Provider [phone] Encounter Details Date Type Department Care Team (Latest Contact Info) Description 07/20/2013 9:26 AM EDT - 07/20/2013 11:59 PM EDT Hospital En[place] [phone] CLINIC, Lolly So MD [address] [place], [place] [id number] Mammographic microcalcification Discharge Disposition: Home Social History [...] AM EST Hospital Encounter Non-[place] [address] Arrived documented as of this encounter Procedures [...] does not layer and, therefore, are not security representative of milk of calcium. Again, these [...] does not layer and, therefore, are not security representative of milk of calcium. Again, these have an amorphous andpunctate appearance and remain indeterminate. Stereotactic guided biopsy isrecommended. Alia Fraire MD IMG MAMMO ORDERABLES documented in this encounter Visit Diagnoses Diagnosis Mammographic microcalcification documented in this encounter Care Teams Forest Management Teacher Relationship Specialty Start Date End Date Lolly Oliveira MD [address] [place] [address] PCP - General 07/17/13 documented as of this encounter
--- OUTSIDE RECORDS SUMMARY | 2023-12-10 11:05 | XMS_ITS | Encounter Summary ---
Author Organization [facility] [place] [address] Care Team Providers Care Hand Reamer Name Role Phone Lolly Oliveira MD Primary Care Provider [phone] Encounter Details Date Type Department Care Team (Late st Contact Info) Description 07/26/2013 Orders [place] [address] Eleno Christian MD [facility] [place] [address] Social History Tobacco Use Types Packs/Day Years [...] AM EST Hospital Encounter Non-In[place] [address] Arrived documented as of this encounter Visit Diagnoses Not on filedocumented in this encounter Care Teams Hand Reamer Relationship Specialty Start Date End Date Lolly Oliveira MD [address] [place] [address] PCP - General 07/17/13 documented as of this encounter
--- OUTSIDE RECORDS SUMMARY | 2023-12-10 11:05 | XMS_ITS | Encounter Summary ---
[place] [address] Care Team Providers Care Gas Station Attendant Name Role Phone Lolly Oliveira MD Primary Care Provider [phone] Encounter Details Date Type Department Care Team [...] AM EST Hospital Encounter Non-[place] [address] Arrived documented as of this encounter Visit Diagnoses Not on filedocumented in this encounter Care Teams Gas Station Attendant Relationship Specialty Start Date End Date Lolly Oliveira MD [address] [place] [address] PCP - General 07/17/13 documented as of this encounter
--- OUTSIDE RECORDS SUMMARY | 2023-12-10 11:05 | XMS_ITS | Encounter Summary ---
Author Organization [facility] [place] [address] Care Team Providers Care Physical Education Department Chair Name Role Phone Lolly Oliveira MD Primary Care Provider [phone] Reason for Visit * Reason Comments Follow-up Encounter Details Date Type Department Care Team (Late st Contact Info) Description 06/06/2021 8:45 AM EDT Office Visit Dermatology at [address] [address] Clay Ramírez MD [address] [facility], [place] [address] Psoriasis, guttate Social History Tobacco Use Types [...] [facility] Hospital Encounter Non-Invasive [place] [address] Arrived documented as of this encounter Visit Diagnoses Diagnosis Psoriasis, guttate Other psoriasis documented in this encounter Care Teams Physical Education Department Chair Relationship Specialty Start Date End Date Lolly Oliveira MD [address] [place] [address] PCP - General 07/17/13 documented as of this encounter
--- OUTSIDE RECORDS SUMMARY | 2023-12-10 11:05 | XMS_ITS | Encounter Summary ---
[place] [address] Care Team Providers Care Buoy Tender Name Role Phone Lolly Oliveira MD Primary Care Provider [phone] Encounter Details Date Type Department Care Team (Latest Contact Info) Description 07/26/2013 9:45 AM EDT - 07/26/2013 11:59 PM EDT Hospital [place] [address] Mammographic microcalcification Social History Tobacco Use Types [...] AM EST Hospital Encounter Non-Invasive [place] [address] Arrived documented as of this encounter Procedures Procedure Name Priority Date/Time Associated Diagnosis Comments SURGICAL PATHOLOGY REPORT Routine 07/26/2013 12:12 PM EDT MAMMO SPECIMEN IMAGING DURING BIOPSY Routine 07/26/2013 11:58 AM EDT Mammographic microcalcification documented in this encounter Results * Surgical Pathology Report (07/26/2013 12:12 PM EDT) Final Diagnosis ? [facility] ? Provider: ?? ELENO CHRISTIAN ?? Pt. Name: ?? JING ALVARENGA ? Acc #: ?[id number] ?Pt. ? Col Date: ?? 07/26/2013 ? [...] Partially fragmented, fibrofatty needle core biopsies. ? [facility] ? Provider: ?? ELENO CHRISTIAN ?? Pt. Name: ?? JING ALVARENGA ? Acc #: ?[id number] ?Pt. ? Col Date: ?? 07/26/2013 ? [...] MD PATHOLOGY/CYTOLOGY O RDERABLES Performing Organization Address City/State/[facility] Co ak Phone Number [facility] [place] [address] * Mammo Specimen Imaging During Biopsy (07/26/2013 [...] microcalcification documented in this encounter Care Teams Buoy Tender Relationship Specialty Start Date End Date Lolly Oliveira MD [address] [place] [address] PCP - General 07/17/13 documented as of this encounter
--- OUTSIDE RECORDS SUMMARY | 2023-12-10 11:05 | XMS_ITS | Encounter Summary ---
Author Organization [facility] [address] Care Team Providers Care Interior Design Professor Name Role Phone Lolly Oliveira MD Primary Care Provider [phone] Reason for Visit * Reason Onset Date Comments Pre Procedure Call 07/01/2022 Encounter Details Date Type Department Care Team (Late st Contact Info) Description 07/01/2022 Telephone Cardiology at [address] [phone] Rosenda Sutton RN Pre Procedure Call Social History Tobacco Use Types Packs/Day Years Used Date Smoking Tobacco: Never Sex and Gender Information Value Date Recorded Sex Assigned at Not on file Gender Identity Not on file Sexual Orientation Not on file documented as of this encounter Miscellaneous Notes * Telephone Encounter - Rosenda Sutton RN - 07/01/2022 9:30 AM EDTSummary: Pre Procedure Call: SENIOR PRINCIPAL implant EP SENIOR LOGISTICS MANAGER COORDINATION CHECKLIST Patient Name: Luna Mott Patient Performing Railroad Construction Director: Lalit Mcmahon Referring Provider: Lolly Oliveira Date of Procedure: 07/23/22 Arrival Time/ Case Time: 12:00 pm / 1:00 pm Check In Location: Escalator Service Mechanic Desk 4W Date Patient was Called: 07/01/22 Procedure: SENIOR PRINCIPAL Company: [employer] Type: SENIOR PRINCIPAL-D Laterality: LEFT Orders: Yes Lab Orders: Yes [...] overnight , understands that they will need cryogenic transport driver on day of discharge Notified pt that Goff catheter may be placed on day of procedure depending on type & duration of case. documented in this encounter Plan of Treatment Upcoming Encounters Date Type Department Care Team (Late st Contact Info) Description 01/16/2024 10:00 AM [facility] Hospital Encounter Non-[place] [address] Arrived documented as of this encounter Visit Diagnoses Not on filedocumented in this encounter Care Teams Interior Design Professor Relationship Specialty Start Date End Date Lolly Oliveira MD [address] [place] [address] PCP - General 07/17/13 documented as of this encounter
--- OUTSIDE RECORDS SUMMARY | 2023-12-10 11:05 | XMS_ITS | Encounter Summary ---
Author Organization [place] [address] Care Team Providers Care Associate Broker Name Role Phone Lolly Oliveira MD Primary Care Provider [phone] Encounter Details Date Type Department Care Team (Latest Contact Info) Description 01/21/2023 10:00 AM EST - 01/21/2023 11:59 PM EST Hospital Encounter [place] [phone] Discharge Disposition: Home Social History Tobacco Use [...] with spacer fluticasone propionate (Flonase) 50 mcg/actuation [place], Suspension 1 spray by Each Nare route [...] AM EST Hospital Encounter Non-[place] [address] Arrived documented as of this [...] filedocumented in this encounter Care Teams Associate Broker Relationship Specialty Start Date End Date Lolly Oliveira MD [address] [place] [address] PCP - General 07/17/13 documented as of this encounter
--- OUTSIDE RECORDS SUMMARY | 2023-12-10 11:05 | XMS_ITS | Encounter Summary ---
Author Organization [facility] Address [facility] [place] [address] Care Team Providers Care Specialty Person Name Role Phone Lolly Oliveira MD Primary Care Provider [phone] Reason for Visit * Auth/Cert (Routine) Specialty Diagnoses / Procedures Referred By Contac t Referred To Contact Diagnoses Left bundle-branch block, unspecified Other cardiomyopathies Left bundle branch block [I44.7]Nonischemic cardiomyopathy [I42.8] Procedures PRG CATH PLMT LEFT HEART CATH & ARTS W/INJ & ANGIO IMG S&I ELECTROPHYSIOLOGY PROCEDURE Lalit Mcmahon MD [facility] [place] [address] [facility] Referral ID Status Reason Start Date Expiration Date Visits Re quested Visits Authorized [id number] 1 1 Encounter Details Date Type Department Care Team (Late st Contact Info) Description 07/23/2022 1:08 PM EDT Anesthesia Event [place] [address] Monae Gonzalez MD [facility] [place] [address] Maria Elena Snyder CRNA [facility] [place] [address] Anesthesia Record Procedure Summary Procedure Name Responsible [...] 1307; median cubital vein (antecubital fossa), right; [id number]-psb-[id number] catheter system; Anatomical Landmarks; 20 gauge; 07/24/22; [...] Date: 07/23/22; Removal Time: 16107/23/22 1336 by Marai Elena Snyder CRNA 07/23/22 1613 by Maria Elena Snyder CRNA (RETIRED) Peripheral IV Line - Single Lumen 07/23/22; 1343; metacarpal vein (top of hand), left; xhny-kgb-cvshyv catheter system; Anatomical Landmarks; US Not Used; [...] Summary Date: 07/23/22 Room / Location: [facility] A-LAB ROOM 3 / [facility] EP [facility] Anesthesia Start: 1308 Anesthesia Stop: 1633 Procedure: ELECTROPHYSIOLOGY PROCEDURE (Left) Diagnosis: Left bundle branch block Nonischemic cardiomyopathy (Left bundle branch block [I44.7]Nonischemic cardiomyopathy [I42.8]) Providers: Lalit Mcmahon MD Responsible Provider: Monae Gonzalez MD Anesthesia Type: general ASA Status: 4 All Anesthesia Providers: Anesthesiologist: Monae Gonzalez MD; Dominique Sen MD COLLABORATIVE TEACHER: Maria Elena Snyder CRNA Vitals Value Taken Time BP 131/46 07/23/22 1700 Temp 36.7 ??C (98.1 ??F) 07/23/22 1627 Pulse 67 07/23/22 1703 Resp 14 07/23/22 1703 SpO2 98 % 07/23/22 1703 Pain Level Vitals shown include unvalidated device data. Patient Location: PACU/[facility] Level of Consciousness: Conscious but Sleepy [...] and Nonischemic CM (EF 15-20%)who presents for INSPECTOR FINISHING-D. No prior anesthetic records. Pt states that [...] daughter/son and patient who. Plan discussed with COLLABORATIVE TEACHER. Anesthesia Screening documented in this encounter Plan of Treatment Upcoming Encounters Date Type Department Care Team (Late st Contact Info) Description 01/16/2024 10:00 AM [facility] Hospital Encounter [place] [address] Arrived documented as of this [...] mg documented in this encounter Care Teams Specialty Person Relationship Specialty Start Date End Date Lolly Oliveira MD [address] [place] [address] PCP - General 07/17/13 documented as of this encounter
--- OUTSIDE RECORDS SUMMARY | 2023-12-10 11:05 | XMS_ITS | Encounter Summary ---
Author Organization [facility] [place] [address] Care Team Providers Care Adjunct Instructor In Economics Name Role Phone Lolly Oliveira MD Primary Care Provider [phone] Encounter Details Date Type Department Care Team (Latest Contact Info) Description 07/26/2013 9:44 AM EDT - 07/26/2013 11:59 PM EDT Hospital [place] [phone] CLINIC, Lolly So MD [address] [place], [place] [id number] Mammographic microcalcification Discharge Disposition: Home Social History [...] AM EST Hospital Encounter [place] [phone] Arrived documented as of this encounter Procedures [...] are present on specimen digital X-ray. A Unica-Stereo 13 Cylinder marker clip was placed. Cranio-caudal [...] mLs documented in this encounter Care Teams Adjunct Instructor In Economics Relationship Specialty Start Date End Date Lolly Oliveira MD [address] [place] [address] PCP - General 07/17/13 documented as of this encounter
--- OUTSIDE RECORDS SUMMARY | 2023-12-10 11:05 | XMS_ITS | Encounter Summary ---
Author Organization [facility] [place] [address] Care Team Providers Care Rivet Hole Machine Operator Name Role Phone Lolly Oliveira MD Primary Care Provider [phone] Encounter Details Date Type Department Care Team (Latest Contact Info) Description 07/26/2013 9:45 AM EDT - 07/26/2013 11:59 PM EDT Hospital En[place] [address] Mammographic microcalcification Social History Tobacco Use Types [...] EST Hospital Encounter Non-Invasive [place] [address] Arrived documented as of this encounter Procedures [...] microcalcification documented in this encounter Care Teams Rivet Hole Machine Operator Relationship Specialty Start Date End Date Lolly Oliveira MD [address] [place] [address] PCP - General 07/17/13 documented as of this encounter
--- OUTSIDE RECORDS SUMMARY | 2023-12-10 11:05 | XMS_ITS | Encounter Summary ---
Author Organization [facility] [place] [address] Care Team Providers Care Ticket Maker Name Role Phone Lolly Oliveira MD Primary Care Provider [phone] Encounter Details Date Type Department Care Team (Late st Contact Info) Description 10/09/2021 Telephone Dermatology at [address] [address] Nora Meredith LPN Social History [...] [facility] Hospital Encounter Non[place] [address] Arrived documented as of this encounter Visit Diagnoses Not on filedocumented in this encounter Care Teams Ticket Maker Relationship Specialty Start Date End Date Lolly Oliveira MD [address] [place] [address] PCP - General 07/17/13 documented as of this encounter
--- OUTSIDE RECORDS SUMMARY | 2023-12-10 11:05 | XMS_ITS | Encounter Summary ---
Author Organization [facility] Address [place] [address] Care Team Providers Care Exhaust Machine Operator Name Role Phone Lolly Oliveira MD Primary Care Provider [phone] Reason for Visit * Auth/Cert (Routine) Specialty Diagnoses / Procedures Referred By Contac t Referred To Contact Diagnoses Left bundle-branch block, unspecified Other cardiomyopathies Left bundle branch block [I44.7]Nonischemic cardiomyopathy [I42.8] Procedures PRG CATH PLMT LEFT HEART CATH & ARTS W/INJ & ANGIO IMG S&I ELECTROPHYSIOLOGY PROCEDURE Lalit Mcmahon MD [facility] [place] [address] [facility] Referral ID Status Reason Start Date Expiration Date Visits Re quested Visits Authorized [id number] 1 1 Encounter Details Date Type Department Care Team (Latest Contact Info) Description 07/23/2022 11:39 AM EDT - 07/24/2022 10:23 AM EDT Hospital [place] [phone] Lalit Mcmahon MD [facility] [place] [address] Left bundle branch block; Nonischemic cardiomyopathy; Cardiac resynchronization therapy defibrillator (BUSINESS UNIT LEADER-D) in place Discharge Disposition: Home Social History [...] MD Follow-up Recommendations for Providers: - s/p BUSINESS UNIT LEADER-D implant - post implant QRS 130 ms - reviewed post-implant instructions - no medication changes - Follow up in device clinic for wound/device check in ~10 days ([facility]) Inpatient Provider Contact Information: Cardiac Electrophysiology - Discharge Diagnoses (Hospital Problems) and Secondary Diagnoses (Chronic Problems): Active Hospital Problems Diagnosis ??? HFrEF (heart failure with reduced ejection fraction) Resolved Hospital Problems No resolved problems to display. Active Non-Hospital Problems Diagnosis ??? Dermatofibroma ??? Nevus ??? Solar lentigo Operations/Major Procedures: 07/23/22: [facility] BUSINESS UNIT LEADER-D implant History of Presentation: 71 y.o. female with a history of HFrEF, LBBB, QRS >150, NYHA II who is POD#1 of BUSINESS UNIT LEADER-D implant ([employer]). Hospital Course: Elective admission for BUSINESS UNIT LEADER-D implant Admitted post-implant for pain management, telemetry [...] (heart failure with reduced ejection fraction) [I50.20] BUSINESS UNIT LEADER-D implant Admission Condition: good Indication for Admission: [...] g Refills: 3 fluticasone propionate 50 mcg/actuation [place], Suspension Commonly known as: Flonase 1 spray [...] incision. Make sure to use a cloth laminating supervisor (such as a towel) in between the [...] F. The office scheduling phone number is [phone]. ARM MOVEMENT RESTRICTIONS POST-IMPLANT - Do not [...] please call the Cardiac ElectrophysiologyTriage Nurse at [phone], option 3. General Instructions None Discharge References/Attachments [...] incision. Make sure to use a cloth laminating supervisor (such as a towel) in between the [...] F. The office scheduling phone number is [phone]. ARM MOVEMENT RESTRICTIONS POST-IMPLANT - Do not [...] please call the Cardiac ElectrophysiologyTriage Nurse at [phone], option 3. documented in this encounter Medications [...] spacer fluticasone propionate (Flonase) 50 mcg/actuation [place], Suspension 1 spray by Each Nare route [...] Cardiac Electrophysiology Post-Implant Device Interrogation Luna Mott [id number] 07/24/2022 History: Luna Mott is a 71 y.o. female with a history of HFrEF, LBBB, QRS >150, NYHA II who is POD#1 of BUSINESS UNIT LEADER-D implant ([employer]). Overall feels well this morning. Ready [...] WOB Neuro- A&Ox3 Device Interrogation: Data ?? Assistant Store Manager Operations Model # Serial # Generator [employer] [id number] Atrial Lead [employer] [id number] RV Lead [employer] [id number] LV Lead [employer] [id number] ?? Diagnostics Pacing Mode: DDD 60-130 Underlying Rhythm: [place] Atrial Episodes: None Ventricular Episodes: None FINAL PROGRAMMING: Pacing: Mode Lower rate (ppm) Upper rate (ppm) ?? DDD 60 130 VF: Rate (bpm) #Antitachycardia pacing First shock energy (J) ?? 200 Quick convert 41 VT: 170 Monitor only Monitor only ? Battery and Leads Impedances (ohms) Sensing (mV) Thresholds HV RA RV LV RA RV LV RA RV LV 73 805 163 8540 (LVa) 7.7 13.1 >25 0.4V @ 0.4 ms 0.4V @ 0.4 ms 0.5 V @ 1.0 ms POD#1 CXR: All leads in nominal positioning Impression: 71 y.o. female who is s/p BUSINESS UNIT LEADER-D implant for LBBB, NYHA II, HFrEF. - Appropriate device function post-implant - CXR negative for post-implant complications - Changed sensed AV delay from 130 to 110 Plan: 1. Reviewed standard post-implant discharge instructions (see patient instructions) including arm restrictions, wound care, bathing, and driving 2. No medication changes. 3. Follow up in device clinic for wound/device check in ~10 days ([facility]) Fadi Nunez MD 07/24/2022 Pager: [phone] I met with the patient today and [...] agreement. ? Dr. Lalit Mcmahon, electrophysiology attending ([id number]) * Zaria Wright RN - 07/23/2022 8:28 [...] HF, QRS > 150 ms presents for BUSINESS UNIT LEADER-D placement. ROS: Denies recent fevers or chills [...] 0.9) flush 5 mL 5 mL Intravenous [id number] ramos MD ??? sodium chloride 0.9 % [...] HF, QRS > 150 ms presents for BUSINESS UNIT LEADER-D placement. Backup would be LBBAP lead. Antibiotics: cefazolin Rationales for, intended benefits and potential risk of planned procedures reviewed. The patient indicated understanding and agreement with the plan. Informed consent signed. Procedure checklist completed. Fadi Nunez MD Cardiac Electrophysiology Fellow [facility] Pager [phone] 07/23/2022 I met with the patient today [...] agreement. ? Dr. Lalit Mcmahon, electrophysiology attending ([id number]) documented in this encounter Miscellaneous Notes * Brief Op Note - Lalit Mcmahon MD - 07/23/2022 4:04 PM EDT Brief Operative Note Patient Name: Luna Mott : [id number] MR#: [id number] Case Date: 07/23/2022 Surgeon: Surgeon(s) and Role: [...] AM EST Hospital Encounter [place] [address] Arrived Scheduled Orders Name Type Priority Associated Diagnoses Orde r Schedule EKG 12 Lead ECG Routine Cardiac resynchronization therapy defibrillator (BUSINESS UNIT LEADER-D) in place One Time for 1 Occurrences [...] (Bezet) 522 ms MUSE SYSTEM Calculated R Julian 78 degrees MUSE SYSTEM Calculated T Julian -71 degrees MUSE SYSTEM INTERPRETATION AV dual-paced [...] who have questions please contact the health behavioral health care coordinator that requested your imaging first. [...] patients who have questions please contactthe health behavioral health care coordinator that requested your imaging first. Lalit Mcmahon MD IMG DX ORDERABLES * ELECTROPHYSIOLOGY PROCEDURE (07/23/2022 1:11 PM EDT) Anatomical Region Laterality Modality Other Narrative 07/23/2022 4:24 PM EDT Table formatting from the original result was not included. BIVENTRICULAR ICD IMPLANTATION Manager Of International: Lalit Mcmahon MD Fellow: Fadi Nunez MD [...] lateral branch of the CS in the IRISH view. This branch was cannulated with a [...] the entire procedure. LEAD AND GENERATOR DATA: Assistant Store Manager Operations Model # Serial # Generator [employer] [id number] Atrial Lead [employer] [id number] RV Lead [employer] [id number] LV Lead [employer] [id number] PACE/SENSE DATA: Sensed wave (mV) Threshold (V) [...] (cGycm2) 300 CONCLUSIONS: Successful implantation of a [employer] biventricular ICD for primary prevention and treatment of symptoms related to congestive heart failure. Follow up in EP clinic in 1-2 months. Procedures performed: new ICD system ( cpt 43405-L7); implant LV lead at time of ICD insertion (cpt 29885) I have read, edited and approve of this report: Lalit Mcmahon MD S Cardiac Electrophysiology 07/23/2022 4:22 PM Procedure Note Lalit Mcmahon MD - 07/23/2022 BIVENTRICULAR ICD IMPLANTATION Manager Of International: Lalit Mcmahon MD Fellow: Fadi Nunez MD [...] appropriate lateralbranch of the CS in the IRISH view. This branch was cannulated with a [...] in the entireprocedure. LEAD AND GENERATOR DATA: Assistant Store Manager Operations Model # Serial # Generator [employer] [id number] Atrial Lead [employer] [id number] RV Lead [employer] [id number] [id number] LV Lead [employer] [id number] PACE/SENSE DATA: Sensed wave (mV) Threshold (V) [...] (cGycm2) 300 CONCLUSIONS: Successful implantation of a [employer] biventricular ICD forprimary prevention and treatment of symptoms related to congestive heartfailure. Follow up in EP clinic in 1-2 months. Procedures performed: new ICD system ( cpt 91173-E9); implant LV lead attime of ICD insertion (cpt 63270) I have read, edited and approve of this report: Lalit Mcmahon MD [facility] Cardiac Electrophysiology 07/23/2022 4:22 PM Lalit Mcmahon MD EP PROCEDURE ORDERAB LES * POCT Glucose (07/23/2022 12:54 PM EDT) Glucose, POC 83 65 - 199 mg/dL [facility] Comment: Supplemental ranges: <140 mg/dL before meals <180 mg/dL all other times of the day Blood 07/23/2022 12:5 4 PM EDT 07/23/2022 12:54 PM EDT Lalit Mcmahon MD POINT OF CARE TEST O RDERABLES Performing Organization Address [facility] Co de Phone Number [facility] [place] [address] * EKG 12 Lead (07/23/2022 12:33 PM EDT) Ventricular rate 72 BPM MUSE SYSTEM Atrial Rate 72 BPM MUSE SYSTEM P-R Interval 158 ms MUSE SYSTEM QRS Duration 176 ms MUSE SYSTEM Q-T Interval 458 ms MUSE SYSTEM QTC Calculated (Bezet) 501 ms MUSE SYSTEM Calculated P Julian 34 degrees MUSE SYSTEM Calculated R Julian 12 degrees MUSE SYSTEM Calculated T Julian -173 degrees MUSE SYSTEM INTERPRETATION Normal sinus rhythm Left bundle branch block Abnormal ECG No previous ECGs available Confirmed by MD Salome, Lalit ([id number]) on 07/23/2022 1:19:03 PM MUSE SYSTEM 07/23/2022 12:3 3 PM EDT 07/23/2022 1:19 PM EDT Lalit Mcmahon MD ECG ORDERABLES Performing Organization Address [facility] de Phone Number MUSE SYSTEM * Differential, Automated (07/23/2022 11:55 AM EDT) Neutrophil % 62.6 % [facility] Neutrophil Absolute 4.14 1.70 - 6.10 x10(3)/[facility] Lymph % 27.0 % [facility] Lymphocytes Abs 1.8 0.9 - 3.2 x10(3)/[facility] Monocyte % 7.3 % [facility] Monocyte Abs 0.5 0.3 - 0.9 x10(3)/[facility] Eos % 2.3 % [facility] Eosinophils Abs 0.2 0.0 - 0.4 x10(3)/[facility] Basophil % 0.6 % [facility] Baso Absolute 0.0 0.0 - 0.1 x10(3)/[facility] Immature Gran % 0.20 % [facility] Comment: Immature granulocytes(IG's)percentage and absolute count will include metamyelocytes, myelocytes, and promyelocytes. Blood smears from CBCs yielding IG's will be scanned manually for concordance. If this scan disagrees with the automated IG or if promyelocytes are noted, a manual differential will be performed. Immature Gran Absolute 0.01 0.00 - 0.04 x10(3)/[facility] Blood 07/23/2022 11:5 5 AM EDT 07/23/2022 12:07 PM EDT Narrative Resulting Agency Comment Spec In Lab Lalit Mcmahon MD HEMATOLOGY ORDERABLE S [facility] [place] [address] * Hemogram (07/23/2022 11:55 AM EDT) White Blood Cell 6.6 4.0 - 9.5 x10(3)/[facility] Red Blood Cell 4.50 4.00 - 5.21 x10(6)/[facility] Hemoglobin 13.7 11.7 - 15.5 g/dL [facility] Hematocrit 42.5 35.7 - 45.8 % [facility] Mean Cell Volume 94.4 82.6 - 94.4 fL [facility] Mean Cell Hemoglobin 30.4 27.1 - 32.0 pg [facility] Mean Cell Hemoglobin Concentration 32.2 31.7 - 35.0 g/dL [facility] Platelet 193 145 - 357 x10(3)/[facility] RDW Standard Deviation 45.5 37.0 - 46.0 fL [facility] RDW coefficient of variation 13.2 11.5 - 14.1 % [facility] Mean Platelet Volume 9.5 7.6 - 12.9 fL [facility] NRBC% auto 0.0 % [facility] NRBC Absolute 0.000 0.000 - 0.000 x10(3)/mcL [facility] Blood 07/23/2022 11:5 5 AM EDT 07/23/2022 12:07 PM EDT Narrative Resulting Agency Comment Spec In Lab Lalit Mcmahon MD HEMATOLOGY ORDERABLE S [facility] [address] [place] [address] * (ABNORMAL) BMP w/fasting Glucose (07/23/2022 11:55 AM EDT) Glucose Fasting 110(H) 65 - 99 mg/dL [facility] Comment: ?Fasting* Glucose Interpretive Criteria [...] of Diabetes Mellitus, Position Statement from the [place] [employer]. ??Diabetes Care, Volume 33, Supplement 1, Mar 2009 Blood Urea Nitrogen 23(H) 8 - 18 mg/dL [facility] Creatinine 1.07 0.70 - 1.20 mg/dL [facility] Sodium 141 135 - 145 mmol/L [facility] Potassium 4.8 3.5 - 5.0 mmol/L [facility] Comment: Please note: ??Patients with WBC >100,000 may have falsely elevated Potassium levels. ??For accurate Potassium quantification in these patients send serum separator tube (gold top) for subsequent determinations. ??Contact the Clinical Chemistry Laboratory if there are any questions. Chloride 106 98 - 107 mmol/L [facility] Carbon Dioxide 26 22 - 31 mmol/L [facility] Anion Gap 9 5 - 15 mmol/L [facility] Calcium 9.7 8.5 - 10.5 mg/dL [facility] Est Glomerular Filtration Rate 55(L) >=60 mL/min/1. 73 m?? [facility] Comment: This patient's estimated GFR [...] CHEMISTRY ORDERABLES Performing Organization Address [facility] Co de Phone Number [facility] [place] [address] * Prothrombin Time (07/23/2022 11:55 AM EDT) Prothrombin Time 11.7 9.4 - 12.5 sec [facility] International Normalization Ratio 1.0 [facility] Comment: An INR <2.0 indicates [...] MD HEMATOLOGY ORDERABLE S Performing Organization Address City/[facility] Co de Phone Number [facility] [place] [address] documented in this encounter Visit Diagnoses Diagnosis HFrEF (heart failure with reduced ejection fraction)- Primary Left bundle branch block Other left bundle branch block Nonischemic cardiomyopathy Other primary cardiomyopathies Cardiac resynchronization therapy defibrillator (BUSINESS UNIT LEADER-D) in place Left bundle branch block Other [...] Routine 1800 (Not Given - Provider: Zaria Wrigth RN - Reason: Contraindicated - Comment: Pt [...] Routine documented in this encounter Care Teams Exhaust Machine Operator Relationship Specialty Start Date End Date Lolly Oliveira MD [address] [place] [address] PCP - General 07/17/13 documented as of this encounter
--- OUTSIDE RECORDS SUMMARY | 2023-12-10 11:05 | XMS_ITS | Encounter Summary ---
Author Organization [facility] [place] [address] Care Team Providers Care Time Clock Repairer Name Role Phone Lolly Oliveira MD Primary Care Provider [phone] Reason for Visit * Reason Comments Follow-up Encounter Details Date Type Department Care Team (Late st Contact Info) Description 05/21/2022 8:00 AM EDT Office Visit Dermatology at [address] [phone] Clay Ramírez MD [address] [facility], [place] [address] Psoriasis, guttate Social History Tobacco Use Types [...] [facility] Hospital Encounter [place] [address] Arrived documented as of this encounter Visit Diagnoses Diagnosis Psoriasis, guttate Other psoriasis documented in this encounter Care Teams Time Clock Repairer Relationship Specialty Start Date End Date Lolly Oliveira MD [address] [place] [address] PCP - General 07/17/13 documented as of this encounter
--- OUTSIDE RECORDS SUMMARY | 2023-12-10 11:05 | XMS_ITS | Encounter Summary ---
Author Organization [facility] [place] [address] Care Team Providers Care Ad Operations Intern Name Role Phone Lolly Oliveira MD Primary Care Provider [phone] Encounter Details Date Type Department Care Team (Late st Contact Info) Description 03/17/2023 Telephone Cardiology at [address] [phone] Saranya Ma Social History Tobacco Use Types Packs/Day Years Used Date Smoking Tobacco: Never Alcohol Use Standard Drinks/Week Comments Not Currently 0 (1 standard drink = 0.6 oz pur e alcohol) [facility] Inpatient Questions Answer Date Recorded Does [...] 9:43 AM EST Echo order faxed to [facility] at [phone]. No Prior auth needed. Ref #:[id number]. Saranya Ma Sr. Clinical Procedure [place]/Salesperson Women'S Dresses documented in this encounter Plan of Treatment Upcoming Encounters Date Type Department Care Team (Late st Contact Info) Description 01/16/2024 10:00 AM [facility] Hospital Encounter Non-Invasive [place] [address] Arrived documented as of this encounter Visit Diagnoses Not on filedocumented in this encounter Care Teams Ad Operations Intern Relationship Specialty Start Date End Date Lolly Oliveira MD [address] [place] [address] PCP - General 07/17/13 documented as of this encounter
--- OUTSIDE RECORDS SUMMARY | 2023-12-10 11:05 | XMS_ITS | Encounter Summary ---
Author Organization Formerly [facility] [place] [address] Care Team Providers Care Typesetter Apprentice Name Role Phone Lolly Oliveira MD Primary Care Provider [phone] Reason for Visit * Diagnostic Test (Routine) - Closed Specialty Diagnoses / Procedures Referred By Contac t Referred To Contact Radiology Diagnoses Left bundle branch block Nonischemic cardiomyopathy Procedures MRI Cardiac Morphology Function With Flow Velocity Quantification wwo Contrast MRI Cardiac Morphology Function wwo Contrast Lalit Mcmahon MD [facility] [place] [address] [facility] [place] [address] Referral ID Status Reason Start Date Expiration Date V isits Requested Visits Authorized [id number] Closed Specialty Service Requested 05/06/2022 11/07/2023 2 1 Encounter Details Date Type Department Care Team (Latest Contact Info) Description 07/14/2022 9:09 AM EDT - 07/14/2022 11:59 PM EDT Hospital [place] [address] Lalit Mcmahon MD [facility] [place] [address] Discharge Disposition: Home Social History Tobacco Use [...] with spacer fluticasone propionate (Flonase) 50 mcg/actuation [place], Suspension 1 spray by Each Nare route [...] AM EST Hospital Encounter Non-[place] [address] Arrived documented as of this [...] mLs documented in this encounter Care Teams Typesetter Apprentice Relationship Specialty Start Date End Date Lolly Oliveira MD [address] [place] [address] PCP - General 07/17/13 documented as of this encounter
--- OUTSIDE RECORDS SUMMARY | 2023-12-10 11:05 | XMS_ITS | Encounter Summary ---
[place] [address] Care Team Providers Care Deputy Program Manager Name Role Phone Lolly Oliveira MD Primary Care Provider [phone] Encounter Details Date Type Department Care Team [...] EST Hospital Encounter Non-Invasive [place] [address] Arrived documented as of this encounter Visit Diagnoses Not on filedocumented in this encounter Care Teams Deputy Program Manager Relationship Specialty Start Date End Date Lolly Oliveira MD [address] [place] [address] PCP - General 07/17/13 documented as of this encounter
--- OUTSIDE RECORDS SUMMARY | 2023-12-10 11:05 | XMS_ITS | Encounter Summary ---
Author Organization [facility] Address [facility] [place] [address] Care Team Providers Care Customer Training Specialist Name Role Phone Lolly Oliveira MD Primary Care Provider [phone] Encounter Details Date Type Department Care Team (Late st Contact Info) Description 07/16/2022 Telephone Cardiology at [address] [phone] Lalit Mcmahon MD [facility] [place] [address] Social History Tobacco Use Types Packs/Day Years [...] her nonischemic cardiomyopathy. She is scheduled for CUFF MATCHER-D implantation next week and looks forward to the procedure. We will see each other next week. Lalit Mcmahon MD [facility] Cardiac Electrophysiology 07/16/2022 8:52 AM documented in this encounter Plan of Treatment Upcoming Encounters Date Type Department Care Team (Late st Contact Info) Description 01/16/2024 10:00 AM EST Hospital Encounter Non-Invasive [place] [address] Arrived documented as of this encounter Visit Diagnoses Not on filedocumented in this encounter Care Teams Customer Training Specialist Relationship Specialty Start Date End Date Lolly Oliveira MD [address] [place] [address] PCP - General 07/17/13 documented as of this encounter
--- OUTSIDE RECORDS SUMMARY | 2023-12-10 11:05 | XMS_ITS | Encounter Summary ---
Author Organization [facility] [place] [address] Care Team Providers Care Ophthalmology Surgical Technician Name Role Phone Lolly Oliveira MD Primary Care Provider [phone] Reason for Referral * Consultation (Routine) - Closed Specialty Diagnoses / Procedures Referred By Contact Referred To Contact Electrophysiology / Cardiology Diagnoses Left bundle branch block Cardiomyopathy, unspecified type AT MINIMUM PT NEEDS CONSIDERATION FOR DEFIBRILLATOR, ALSO CANDIDATE FOR RESYNCHRONIZATION THERAPY HER QRS IS >0.16 Lolly Oliveiar MD [address] [place] [address] [facility] Cardiology [address] [place] [phone] Referral ID Status Reason Start Date Expiration Date V isits Requested Visits Authorized [id number] Closed Consult, Test & Treat PCP Updated and/or Approved 04/30/2022 04/30/2023 6 6 Encounter Details Date Type Department Care Team (Latest Contact Info) Description 04/30/2022 Transcribe Orders eDH Incoming Referrals [phone] Lolly Oliveira MD [address] [place], [place] [id number] Left bundle branch block; Cardiomyopathy, unspecified type [...] AM EST Hospital Encounter Non-Invasive [place] [address] Arrived Scheduled Referrals Name Type Priority Associated Diagnoses Orde r Schedule Referral to Cardiology Outpatient Referral Routine Left bundle branch block Cardiomyopathy, Unspecified Type Ordered: 04/30/2022 documented as of this encounter Visit Diagnoses Diagnosis Left bundle branch block Other left bundle branch block Cardiomyopathy, unspecified type documented in this encounter Care Teams Ophthalmology Surgical Technician Relationship Specialty Start Date End Date Lolly Oliveira MD [address] [place] [address] PCP - General 07/17/13 documented as of this encounter
--- OUTSIDE RECORDS SUMMARY | 2023-12-10 11:05 | XMS_ITS | Encounter Summary ---
Author Organization [facility] [place] [address] Care Team Providers Care Mail Delivery Supervisor Name Role Phone Lolly Oliveira MD Primary Care Provider [phone] Reason for Visit * Reason Comments Follow-up Encounter Details Date Type Department Care Team (Late st Contact Info) Description 07/02/2022 8:00 AM EDT Office Visit Dermatology at [address] [phone] Clay Ramírez MD [address] [facility], [place] [address] Psoriasis, guttate Social History Tobacco Use Types [...] [facility] Encounter Non-[place] [phone] Arrived documented as of this encounter Visit Diagnoses Diagnosis Psoriasis, guttate Other psoriasis documented in this encounter Care Teams Mail Delivery Supervisor Relationship Specialty Start Date End Date Lolly Oliveira MD [address] [place] [address] PCP - General 07/17/13 documented as of this encounter
--- OUTSIDE RECORDS SUMMARY | 2023-12-10 11:05 | XMS_ITS | Encounter Summary ---
Author Organization Formerly [facility] Address [facility] [place] [address] Care Team Providers Care Cycle Liaison Name Role Phone Lolly Oliveira MD Primary Care Provider [phone] Encounter Details Date Type Department Care Team (Late st Contact Info) Description 11/11/2022 Orders Only Cardiology at [address] [phone] Lalit Mcmahon MD [facility] [place] [address] Nonischemic cardiomyopathy Social History Tobacco Use Types Packs/Day Years Used Date Smoking Tobacco: Never Alcohol Use Standard Drinks/Week Comments Not Currently 0 (1 standard drink = 0.6 oz pur e alcohol) [facility] Inpatient Questions Answer Date Recorded [...] [facility] Hospital Encounter Non-Invasive [place] [phone] Arrived documented as of this encounter Visit Diagnoses Diagnosis Nonischemic cardiomyopathy Other primary cardiomyopathies documented in this encounter Care Teams Cycle Liaison Relationship Specialty Start Date End Date Berrian, Lolly M, MD [address] [place] [address] PCP - General 07/17/13 documented as of this encounter
--- OUTSIDE RECORDS SUMMARY | 2023-12-10 11:05 | XMS_ITS | Encounter Summary ---
Author Organization Formerly [facility] [place] [address] Care Team Providers Care Sas Programmer Name Role Phone Lolly Oliveira MD Primary Care Provider [phone] Encounter Details Date Type Department Care Team (Latest Contact Info) Description 04/21/2023 10:00 AM EST - 04/21/2023 11:59 PM EST Hospital Encounter Non-Invasive [place] [phone] Discharge Disposition: Home Social History Tobacco Use [...] with spacer fluticasone propionate (Flonase) 50 mcg/actuation [place], Suspension 1 spray by Each Nare route [...] EST Hospital Encounter Non-Invasive [place] [address] Arrived documented as of this [...] on filedocumented in this encounter Care Teams Sas Programmer Relationship Specialty Start Date End Date Lolly Oliveira MD [address] [place] [address] PCP - General 07/17/13 documented as of this encounter
--- OUTSIDE RECORDS SUMMARY | 2023-12-10 11:05 | XMS_ITS | Encounter Summary ---
Author Organization [facility] [address] Care Team Providers Care Injection Molding Machine Tender Name Role Phone Lolly Oliveira MD Primary Care Provider [phone] Reason for Visit * Auth/Cert (Routine) Specialty Diagnoses / Procedures Referred By Contac t Referred To Contact Diagnoses Left bundle-branch block, unspecified Other cardiomyopathies Left bundle branch block [I44.7]Nonischemic cardiomyopathy [I42.8] Procedures PRG CATH PLMT LEFT HEART CATH & ARTS W/INJ & ANGIO IMG S&I ELECTROPHYSIOLOGY PROCEDURE Lalit Mcmahon MD [facility] [address] [facility] Referral ID Status Reason Start Date Expiration Date Visits Re quested Visits Authorized [id number] 1 1 Encounter Details Date Type Department Care Team (Late st Contact Info) Description 07/23/2022 1:00 PM EDT - 07/23/2022 5:30 PM EDT Surgery [place] [address] Lalit Mcmahon MD [facility] [place] [address] ELECTROPHYSIOLOGY PROCEDURE Social History Tobacco Use Types [...] Luna Mott Patient Age: 71 y.o. Language: Kyrgyz Race: White Ethnicity: Not nor Admit date: 07/23/2022 Discharge date and time: 07/24/22 Attending Physician: Lalit Mcmahon MD Discharge Physician: Lalit Mcmahon MD Follow-up Recommendations for Providers: - s/p FIRE CREW WORKER-D implant - post implant QRS 130 ms - reviewed post-implant instructions - no medication changes - Follow up in device clinic for wound/device check in ~10 days ([facility]) Inpatient Provider Contact Information: Cardiac Electrophysiology - Discharge Diagnoses (Hospital Problems) and Secondary Diagnoses (Chronic Problems): Active Hospital Problems Diagnosis ??? HFrEF (heart failure with reduced ejection fraction) Resolved Hospital Problems No resolved problems to display. Active Non-Hospital Problems Diagnosis ??? Dermatofibroma ??? Nevus ??? Solar lentigo Operations/Major Procedures: 07/23/22: [facility] FIRE CREW WORKER-D implant History of Presentation: 71 y.o. female with a history of HFrEF, LBBB, QRS >150, NYHA II who is POD#1 of FIRE CREW WORKER-D implant ([employer]). Hospital Course: Elective admission for FIRE CREW WORKER-D implant Admitted post-implant for pain management, telemetry [...] (heart failure with reduced ejection fraction) [I50.20] FIRE CREW WORKER-D implant Admission Condition: good Indication for Admission: [...] g Refills: 3 fluticasone propionate 50 mcg/actuation [place], Suspension Commonly known as: Flonase 1 spray [...] incision. Make sure to use a cloth colors examiner (such as a towel) in between [...] F. The office scheduling phone number is [phone]. ARM MOVEMENT RESTRICTIONS POST-IMPLANT - Do not [...] please call the Cardiac ElectrophysiologyTriage Nurse at [phone], option 3. General Instructions None Discharge References/Attachments [...] incision. Make sure to use a cloth colors examiner (such as a towel) in between [...] F. The office scheduling phone number is [phone]. ARM MOVEMENT RESTRICTIONS POST-IMPLANT - Do not [...] please call the Cardiac ElectrophysiologyTriage Nurse at [phone], option 3. documented in this encounter Medications [...] with spacer fluticasone propionate (Flonase) 50 mcg/actuation [place], Suspension 1 spray by Each Nare route [...] Cardiac Electrophysiology Post-Implant Device Interrogation Luna Mott [id number] 07/24/2022 History: Luna Mott is a 71 y.o. female with a history of HFrEF, LBBB, QRS >150, NYHA II who is POD#1 of FIRE CREW WORKER-D implant ([employer]). Overall feels well this morning. Ready [...] WOB Neuro- A&Ox3 Device Interrogation: Data ?? Type Rolling Machine Operator Model # Serial # Generator [employer] [id number] Atrial Lead [employer] [id number] [id number] RV Lead [employer] 0672 468323 LV Lead [employer] [id number] ?? Diagnostics Pacing Mode: DDD 60-130 Underlying Rhythm: [place] Atrial Episodes: None Ventricular Episodes: None FINAL PROGRAMMING: Pacing: Mode Lower rate (ppm) Upper rate (ppm) ?? DDD 60 130 VF: Rate (bpm) #Antitachycardia pacing First shock energy (J) ?? 200 Quick convert 41 VT: 170 Monitor only Monitor only ? Battery and Leads Impedances (ohms) Sensing (mV) Thresholds HV RA RV LV RA RV LV RA RV LV 73 [phone] (LVa) 7.7 13.1 >25 0.4V @ 0.4 ms 0.4V @ 0.4 ms 0.5 V @ 1.0 ms POD#1 CXR: All leads in nominal positioning Impression: 71 y.o. female who is s/p FIRE CREW WORKER-D implant for LBBB, NYHA II, HFrEF. - Appropriate device function post-implant - CXR negative for post-implant complications - Changed sensed AV delay from 130 to 110 Plan: 1. Reviewed standard post-implant discharge instructions (see patient instructions) including arm restrictions, wound care, bathing, and driving 2. No medication changes. 3. Follow up in device clinic for wound/device check in ~10 days ([facility]) Fadi Nunez MD 07/24/2022 Pager: [phone] I met with the patient today and [...] agreement. ? Dr. Lalit Mcmahon, electrophysiology attending ([id number]) * Zaria Wright RN - 07/23/2022 8:28 [...] HF, QRS > 150 ms presents for FIRE CREW WORKER-D placement. ROS: Denies recent fevers or chills [...] 0.9) flush 5 mL 5 mL Intravenous [id number] ramos MD ??? sodium chloride 0.9 % [...] HF, QRS > 150 ms presents for FIRE CREW WORKER-D placement. Backup would be LBBAP lead. Antibiotics: cefazolin Rationales for, intended benefits and potential risk of planned procedures reviewed. The patient indicated understanding and agreement with the plan. Informed consent signed. Procedure checklist completed. Fadi Nunez MD Cardiac Electrophysiology Fellow [facility] Pager [phone] 07/23/2022 I met with the patient today [...] agreement. ? Dr. Lalit Mcmahon, electrophysiology attending ([id number]) documented in this encounter Miscellaneous Notes * Brief Op Note - Lalit Mcmahon MD - 07/23/2022 4:04 PM EDT Brief Operative Note Patient Name: Luna Mott : [id number] MR#: [id number] Case Date: 07/23/2022 Surgeon: Surgeon(s) and Role: [...] AM EST Hospital Encounter Non-[place] [address] Arrived Scheduled Orders Name Type Priority Associated Diagnoses Orde r Schedule EKG 12 Lead ECG Routine Cardiac resynchronization therapy defibrillator (FIRE CREW WORKER-D) in place One Time for 1 Occurrences [...] (Bezet) 522 ms MUSE SYSTEM Calculated R [place] 78 degrees MUSE SYSTEM Calculated T [place] -71 degrees MUSE SYSTEM INTERPRETATION AV dual-paced [...] who have questions please contact the health long term acute care registered nurse that requested your imaging first. ? Electronically signed by: Kwame Vargas MD, [facility] ([phone]), at 07/24/2022 6:43 AM Narrative 07/24/2022 6:43 [...] patients who have questions please contactthe health long term acute care registered nurse that requested your imaging first. Electronically signed by: Kwame Vargas MD, [facility]([phone]), at 07/24/2022 6:43 AM Lalit Mcmahon MD IMG DX ORDERABLES * ELECTROPHYSIOLOGY PROCEDURE (07/23/2022 1:11 PM EDT) Anatomical Region Laterality Modality Other Narrative 07/23/2022 4:24 PM EDT Table formatting from the original result was not included. BIVENTRICULAR ICD IMPLANTATION Contract Preparer: Lalit Mcmahon MD Fellow: Fadi Nunez MD [...] lateral branch of the CS in the EGYPTIAN view. This branch was cannulated with a [...] the entire procedure. LEAD AND GENERATOR DATA: Type Rolling Machine Operator Model # Serial # Generator [employer] [id number] Atrial Lead [employer] [id number] [id number] RV Lead [employer] 0672 488019 LV Lead [employer] [id number] [id number] PACE/SENSE DATA: Sensed wave (mV) Threshold (V) [...] (cGycm2) 300 CONCLUSIONS: Successful implantation of a [employer] biventricular ICD for primary prevention and treatment of symptoms related to congestive heart failure. Follow up in EP clinic in 1-2 months. Procedures performed: new ICD system ( cpt 93941-F9); implant LV lead at time of ICD insertion (cpt 63489) I have read, edited and approve of this report: Lalit Mcmahon MD [facility] Cardiac Electrophysiology 07/23/2022 4:22 PM Procedure Note Lalit Mcmahon MD - 07/23/2022 BIVENTRICULAR ICD IMPLANTATION Contract Preparer: Lalit Mcmahon MD Fellow: Fadi Nunez MD [...] appropriate lateralbranch of the CS in the EGYPTIAN view. This branch was cannulated with a [...] in the entireprocedure. LEAD AND GENERATOR DATA: Type Rolling Machine Operator Model # Serial # Generator [employer] [id number] Atrial Lead [employer] [id number] [id number] RV Lead [employer] 0672 [id number] LV Lead [employer] [id number] PACE/SENSE DATA: Sensed wave (mV) Threshold (V) [...] (cGycm2) 300 CONCLUSIONS: Successful implantation of a [employer] biventricular ICD forprimary prevention and treatment of symptoms related to congestive heartfailure. Follow up in EP clinic in 1-2 months. Procedures performed: new ICD system ( cpt 55549-D5); implant LV lead attime of ICD insertion (cpt 96017) I have read, edited and approve of this report: Lalit Mcmahon MD S Cardiac Electrophysiology 07/23/2022 4:22 PM Lalit Mcmahon MD EP PROCEDURE ORDERAB LES * POCT Glucose (07/23/2022 12:54 PM EDT) [facility] Signature Glucose, POC 83 65 - 199 mg/dL [facility] Comment: Supplemental ranges: <140 mg/dL before meals <180 mg/dL all other times of the day Blood 07/23/2022 12:5 4 PM EDT 07/23/2022 12:54 PM EDT Lalit Mcmahon MD POINT OF CARE TEST O RDERABLES Performing Organization Address City/[facility]/ZIP Co de Phone Number [facility] [place] [address] * EKG 12 Lead (07/23/2022 12:33 PM EDT) Ventricular rate 72 BPM MUSE SYSTEM Atrial Rate 72 BPM MUSE SYSTEM P-R Interval 158 ms MUSE SYSTEM QRS Duration 176 ms MUSE SYSTEM Q-T Interval 458 ms MUSE SYSTEM QTC Calculated (Bezet) 501 ms MUSE SYSTEM Calculated P [place] 34 degrees MUSE SYSTEM Calculated R [place] 12 degrees MUSE SYSTEM Calculated T [place] -173 degrees MUSE SYSTEM INTERPRETATION Normal sinus rhythm Left bundle branch block Abnormal ECG No previous ECGs available Confirmed by MD Salome, Lalit ([id number]) on 07/23/2022 1:19:03 PM MUSE SYSTEM 07/23/2022 12:3 3 PM EDT 07/23/2022 1:19 PM EDT Lalit Mcmahon MD ECG ORDERABLES Performing Organization Address [facility]/ZIP Co de Phone Number MUSE SYSTEM * Differential, Automated (07/23/2022 11:55 AM EDT) Neutrophil % 62.6 % [facility] Neutrophil Absolute 4.14 1.70 - 6.10 x10(3)/[facility] Lymph % 27.0 % [facility] Lymphocytes Abs 1.8 0.9 - 3.2 x10(3)/[facility] LAB[facility] Monocyte % 7.3 % [facility] Monocyte Abs 0.5 0.3 - 0.9 x10(3)/[facility] LAB[facility] Eos % 2.3 % [facility] Eosinophils Abs 0.2 0.0 - 0.4 x10(3)/[facility] LABORATORY Basophil % 0.6 % [facility] Baso Absolute 0.0 0.0 - 0.1 x10(3)/[facility] LABORATORY Immature Gran % 0.20 % [facility] Comment: Immature granulocytes(IG's)percentage and absolute count will include metamyelocytes, myelocytes, and promyelocytes. Blood smears from CBCs yielding IG's will be scanned manually for concordance. If this scan disagrees with the automated IG or if promyelocytes are noted, a manual differential will be performed. Immature Gran Absolute 0.01 0.00 - 0.04 x10(3)/[facility] LAB[facility] Blood 07/23/2022 11:5 5 AM EDT 07/23/2022 12:07 PM EDT Narrative Resulting Agency Comment Spec In Lab Lalit Mcmahon MD HEMATOLOGY ORDERABLE S [facility] [place] [address] * Hemogram (07/23/2022 11:55 AM EDT) White Blood Cell 6.6 4.0 - 9.5 x10(3)/[facility] LAB[facility] Red Blood Cell 4.50 4.00 - 5.21 x10(6)/[facility] Hemoglobin 13.7 11.7 - 15.5 g/dL [facility] Hematocrit 42.5 35.7 - 45.8 % [facility] Mean Cell Volume 94.4 82.6 - 94.4 fL [facility] Mean Cell Hemoglobin 30.4 27.1 - 32.0 pg [facility] Mean Cell Hemoglobin Concentration 32.2 31.7 - 35.0 g/dL [facility] Platelet 193 145 - 357 x10(3)/[facility] LAB[facility] RDW Standard Deviation 45.5 37.0 - 46.0 fL [facility] RDW coefficient of variation 13.2 11.5 - 14.1 % [facility] Mean Platelet Volume 9.5 7.6 - 12.9 fL [facility] NRBC% auto 0.0 % [facility] NRBC Absolute 0.000 0.000 - 0.000 x10(3)/[facility] Blood 07/23/2022 11:5 5 AM EDT 07/23/2022 12:07 PM EDT Narrative Resulting Agency Comment Spec In Lab Lalit Mcmahon MD HEMATOLOGY ORDERABLE S [facility] [place] [address] * (ABNORMAL) BMP w/fasting Glucose (07/23/2022 11:55 AM EDT) Glucose Fasting 110(H) 65 - 99 mg/dL [facility] Comment: ?Fasting* Glucose Interpretive Criteria [...] of Diabetes Mellitus, Position Statement from the [place] [employer]. ??Diabetes Care, Volume 33, Supplement 1, Mar 2009 Blood Urea Nitrogen 23(H) 8 - 18 mg/dL [facility] Creatinine 1.07 0.70 - 1.20 mg/dL [facility] Sodium 141 135 - 145 mmol/L [facility] Potassium 4.8 3.5 - 5.0 mmol/L [facility] Comment: Please note: ??Patients with WBC >100,000 may have falsely elevated Potassium levels. ??For accurate Potassium quantification in these patients send serum separator tube (gold top) for subsequent determinations. ??Contact the Clinical Chemistry Laboratory if there are any questions. Chloride 106 98 - 107 mmol/L [facility] Carbon Dioxide 26 22 - 31 mmol/L [facility] Anion Gap 9 5 - 15 mmol/L [facility] Calcium 9.7 8.5 - 10.5 mg/dL [facility] Est Glomerular Filtration Rate 55(L) >=60 mL/min/1. 73 m?? [facility] Comment: This patient's estimated [...] ORDERABLES Performing Organization Address [facility] Co de Phone Number [facility] [place] [address] * Prothrombin Time (07/23/2022 11:55 AM EDT) Prothrombin Time 11.7 9.4 - 12.5 sec [facility] International Normalization Ratio 1.0 [facility] Comment: An INR <2.0 indicates [...] MD HEMATOLOGY ORDERABLE S Performing Organization Address City/[facility] Co de Phone Number [facility] [place] [address] documented in this encounter Visit Diagnoses Diagnosis HFrEF (heart failure with reduced ejection fraction)- Primary Left bundle branch block Other left bundle branch block Nonischemic cardiomyopathy Other primary cardiomyopathies Cardiac resynchronization therapy defibrillator (FIRE CREW WORKER-D) in place Left bundle branch block Other [...] Routine documented in this encounter Care Teams Injection Molding Machine Tender Relationship Specialty Start Date End Date Lolly Oliveira MD [address] [place] [address] PCP - General 07/17/13 documented as of this encounter
--- OUTSIDE RECORDS SUMMARY | 2023-12-10 11:05 | XMS_ITS | Encounter Summary ---
Author Organization [facility] [place] [address] Care Team Providers Care Loan Underwriter Name Role Phone Lolly Oliveira MD Primary Care Provider [phone] Reason for Visit * Reason Onset Date Comments Post Procedure Call 07/30/2022 Encounter Details Date Type Department Care Team (Late st Contact Info) Description 07/30/2022 Notes Only Cardiology at [address] [id number] Rosenda Sutton, RN Post Procedure Call Social History Tobacco Use Types Packs/Day Years Used Date Smoking Tobacco: Never Alcohol Use Standard Drinks/Week Comments Not Currently 0 (1 standard drink = 0.6 oz pur e alcohol) [facility] Inpatient Questions Answer Date Recorded Does [...] 07/30/2022 9:59 AM EDTSummary: Post Procedure Call: VICE PROVOST implant EP RN Post-Procedure Note: Date of [...] Note: Follow-up Recommendations for Providers: - s/p VICE PROVOST-D implant - post implant QRS 130 ms - reviewed post-implant instructions - no medication changes - Follow up in device clinic for wound/device check in ~10 days??([facility]) Wound Care: -Wound will heal in [...] [facility] Hospital Encounter [place] [address] Arrived documented as of this encounter Visit Diagnoses Not on filedocumented in this encounter Care Teams Loan Underwriter Relationship Specialty Start Date End Date Lolly Oliveira MD [address] [place] [address] PCP - General 07/17/13 documented as of this encounter
--- OUTSIDE RECORDS SUMMARY | 2023-12-10 11:05 | XMS_ITS | Encounter Summary ---
Author Organization [facility] [place] [address] Care Team Providers Care Associate Creative Director Name Role Phone Lolly Oliveira MD Primary Care Provider [phone] Encounter Details Date Type Department Care Team (Latest Contact Info) Description 10/23/2022 10:00 AM EDT - 10/23/2022 11:59 PM EDT Hospital Encounter Non-Invasive [place] [address] Discharge Disposition: Home Social History Tobacco Use [...] with spacer fluticasone propionate (Flonase) 50 mcg/actuation [employer], Suspension 1 spray by Each Nare route [...] [facility] Hospital Encounter Non-Invasive [place] [address] Arrived documented as of this [...] filedocumented in this encounter Care Teams Associate Creative Director Relationship Specialty Start Date End Date Lolly Oliveira MD [address] [place] [address] PCP - General 07/17/13 documented as of this encounter
--- OUTSIDE RECORDS SUMMARY | 2023-12-10 11:05 | XMS_ITS | Encounter Summary ---
Author Organization [facility] [place] [address] Care Team Providers Care Instructor Robotics Name Role Phone Lolly Oliveira MD Primary Care Provider [phone] Encounter Details Date Type Department Care Team (Late st Contact Info) Description 01/29/2023 Notes Only Cardiology at [address] [address] Merle Lin PA [facility] [place] [address] Social History Tobacco Use Types Packs/Day Years [...] pdf document Date of transmission: 01/29/2023 Device packer denture: BSI Device type: FIRE TENDER-D Presenting rhythm: /RVP/LVP AP 21% Right DRYER AND WASHER MECHANIC 100% Left DRYER AND WASHER MECHANIC: 100% Battery: 10.5 years [employer] Index rising in setting of increasing S3 intensity, increasing respiratory rate, increasing night heart rate, and increasing mean heart rate. MICKEY Villa 01/29/2023 9:06 AM documented in this encounter Plan of Treatment Upcoming Encounters Date Type Department Care Team (Late st Contact Info) Description 01/16/2024 10:00 AM EST Hospital Encounter Non-[place] [address] Arrived documented as of this encounter Visit Diagnoses Not on filedocumented in this encounter Care Teams Instructor Robotics Relationship Specialty Start Date End Date Lolly Oliveira MD [address] [place] [address] PCP - General 07/17/13 documented as of this encounter
--- OUTSIDE RECORDS SUMMARY | 2023-12-10 11:06 | XMS_ITS | Encounter Summary ---
Author Organization [facility] [place] [address] Care Team Providers Care Manager Interface Name Role Phone Lolly Oliveira MD Primary Care Provider [phone] Encounter Details Date Type Department Care Team (Latest Contact Info) Description 07/17/2013 8:40 AM EDT - 07/17/2013 11:59 PM EDT Hospital Encounter XRay at [address] [place] [phone] CL[address], [facility] Discharge Disposition: Home Social [...] EST Hospital Encounter Non-Invasive [place] [address] Arrived documented as of this encounter Visit Diagnoses Not on filedocumented in this encounter Care Teams Manager Interface Relationship Specialty Start Date End Date Lolly Oliveira MD [address] [place] [address] PCP - General 07/17/13 documented as of this encounter
--- OUTSIDE RECORDS SUMMARY | 2023-12-10 11:06 | XMS_ITS | Encounter Summary ---
Author Organization [facility] [place] [address] Care Team Providers Care Orthopedic Brace Maker Name Role Phone Lolly Oliveira MD Primary Care Provider [phone] Encounter Details Date Type Department Care Team (Late st Contact Info) Description 06/29/2011 [place] [phone] Eleno Christian MD [facility] [place] [address] Social History Tobacco Use Types Packs/Day Years [...] AM EST Hospital Encounter Non[place] [phone] Arrived documented as of this encounter Procedures [...] is a Non-reportable exam Eleno Christian MD [facility] FILM LIBRARY ORD ERABLES documented in this encounter Visit Diagnoses Not on filedocumented in this encounter Care Teams Orthopedic Brace Maker Relationship Specialty Start Date End Date Lolly Oliveira MD [address] [place] [address] PCP - General 07/17/13 documented as of this encounter
--- OUTSIDE RECORDS SUMMARY | 2023-12-10 11:06 | XMS_ITS | Encounter Summary ---
Author Organization [facility] [place] [address] Care Team Providers Care Assistant Toddler Teacher Name Role Phone Lolly Oliveira MD Primary Care Provider [phone] Encounter Details Date Type Department Care Team (Latest Contact Info) Description 07/18/2013 [place] [phone] Alia Fraire MD [facility] [place] [address] Mammographic microcalcification (Primary Dx) Social History Tobacco [...] AM EST Hospital Encounter Non-Invasive [place] [address] Arrived documented as of this encounter Results [...] are present on specimen digital X-ray. A [employer] Eviva-Stereo 13 Cylinder marker clip was placed. [...] calcifications are present on specimendigital X-ray. A [employer] Eviva-Stereo 13 Cylinder marker clip was placed. [...] does not layer and, therefore, are not site safety representative of milk of calcium. Again, [...] does not layer and, therefore, are not site safety representative of milk of calcium. Again, these have an amorphous andpunctate appearance and remain indeterminate. Stereotactic guided biopsy isrecommended. Alia Fraire MD IMG MAMMO ORDERABLES documented in this encounter Visit Diagnoses Diagnosis Mammographic microcalcification- Primary Mammographic microcalcification Mammographic microcalcification Mammographic microcalcification Mammographic microcalcification documented in this encounter Care Teams Assistant Toddler Teacher Relationship Specialty Start Date End Date Lolly Oliveira MD [address] [place] [address] PCP - General 07/17/13 documented as of this encounter
--- OUTSIDE RECORDS SUMMARY | 2023-12-10 11:06 | XMS_ITS | Encounter Summary ---
[place] [address] Care Team Providers Care Licensed Physical Therapist Name Role Phone Lolly Oliveira MD Primary Care Provider [phone] Encounter Details Date Type Department Care Team (Late st Contact Info) Description 07/17/2013 [place] [phone] Lolly Oliveira MD [address] [place], [place] [id number] Social History Tobacco Use Types Packs/Day Years [...] Hospital Encounter [place] [address] Arrived documented as of this encounter Procedures Procedure Name Priority Date/Time Associated Diagnosis Comments REQUEST FOR 2ND READ MAMMO Routine 07/17/2013 8:45 AM EDT documented in this encounter Results * Request for 2nd read Mammo (07/17/2013 8:45 AM EDT) Anatomical Region Laterality Modality Other 07/17/2013 8:45 AM EDT Narrative 07/17/2013 3:57 PM EDT INTERPRETATION OF OUTSIDE MAMMOGRAMS (PERFORMED ON 07/06/13 AND 07/14/13) FROM [facility] DATED 07/17/13: ?? DIAGNOSTIC [...] OUTSIDE MAMMOGRAMS (PERFORMED ON 07/06/13 AND 07/14/13) [facility] DATED 07/17/13: DIAGNOSTIC IMAGING SUMMARY: RIGHT BREAST [...] filedocumented in this encounter Care Teams Licensed Physical Therapist Relationship Specialty Start Date End Date Lolly Oliveira MD [address] [place] [address] PCP - General 07/17/13 documented as of this encounter
--- OUTSIDE RECORDS SUMMARY | 2023-12-10 11:06 | XMS_ITS | Encounter Summary ---
Author Organization [facility] [place] [address] Care Team Providers Care City Treasurer Name Role Phone Unavailable Primary Care Provider Unavailabl e Encounter Details Date Type Department Care Team (Late st Contact Info) Description 07/14/2013 [place] [phone] Eleno Christian MD [facility] [place] [address] Social History Tobacco Use Types Packs/Day Years [...] AM EST Hospital Encounter Non-[place] [address] Arrived documented as of this encounter Visit Diagnoses Not on filedocumented in this encounter
--- OUTSIDE RECORDS SUMMARY | 2023-12-10 11:06 | XMS_ITS | Encounter Summary ---
Author Organization [facility] [place] [address] Care Team Providers Care Farm Management Adviser Name Role Phone Unavailable Primary Care Provider Unavailabl e Encounter Details Date Type Department Care Team (Late st Contact Info) Description 07/14/2013 External Results XRay at [address] [place] [address] Provider, Scanning Social History Tobacco Use Types [...] EST Hospital Encounter Non-Invasive Cardiology Lab [facility] [place] [address] Arrived documented as of this encounter Procedures [...]
--- OUTSIDE RECORDS SUMMARY | 2023-12-10 11:06 | XMS_ITS | Encounter Summary ---
Author Organization [facility] [place] [address] Care Team Providers Care Gas Cutting Machine Operator Name Role Phone Unavailable Primary Care Provider Unavailabl e Encounter Details Date Type Department Care Team (Late st Contact Info) Description 07/04/2012 [place] [phone] Eleno Christian MD [facility] [place] [address] Social History Tobacco Use Types Packs/Day Years [...] AM EST Hospital Encounter Non-[place] [phone] Arrived documented as of this encounter Procedures [...] a Non-reportable exam Eleno Christian MD [facility] FILM LIBRARY ORD ERABLES documented in this encounter Visit Diagnoses Not on filedocumented in this encounter
--- OUTSIDE RECORDS SUMMARY | 2023-12-22 10:58 | XMS_ITS | Referral Summary ---
Author Organization [facility] Address [address] [place] [address] Care Team Providers Care Hydraulic Press Tender Name Role Phone Lolly Oliveira MD Primary Care Provider [phone] Social History Tobacco Use Types Packs/Day Years Used Date Smoking Tobacco: Never Assessed Sex and Gender Information Value Date Recorded Sex Assigned at Not on file Gender Identity Not on file Sexual Orientation Not on file Plan of Treatment Not on file Care Teams Hydraulic Press Tender Relationship Specialty Start Date End Date Lolly Oliveira MD [address] [place] [address] PCP - General 11/13/08
--- OUTSIDE RECORDS SUMMARY | 2023-12-22 10:58 | XMS_ITS | Clinical Summary ---
Author Organization [facility] Address [address] [place] [address] Care Team Providers Care Research Lab Assistant Name Role Phone Lolly Oliveira MD Primary Care Provider [phone] Social History Tobacco Use Types Packs/Day Years [...] COVID-19 Vaccine ( season) 2023 Care Teams Research Lab Assistant Relationship Specialty Start Date End Date Lolly Oliveira MD [address] [place], [place] [id number] PCP - General 11/13/08
--- OUTSIDE RECORDS SUMMARY | 2023-12-22 10:59 | XMS_ITS | Encounter Summary ---
Author Organization [facility] Address [facility] [place] [address] Care Team Providers Care Immunologist Name Role Phone Lolly Oliveira MD Primary Care Provider [phone] Encounter Details Date Type Department Care Team (Late st Contact Info) Description 05/03/2023 Telephone Cardiology at [address] [phone] Lalit Mcmahon MD [facility] [place] [address] Social History Tobacco Use Types Packs/Day Years Used Date Smoking Tobacco: Never Alcohol Use Standard Drinks/Week Comments Not Currently 0 (1 standard drink = 0.6 oz pur e alcohol) [facility] Inpatient Questions Answer Date Recorded [...] AM EST Hospital Encounter [place] [address] Arrived documented as of this encounter Visit Diagnoses Not on filedocumented in this encounter Care Teams Immunologist Relationship Specialty Start Date End Date Lolly Oliveira MD [address] [place] [address] PCP - General 07/17/13 documented as of this encounter
--- OUTSIDE RECORDS SUMMARY | 2023-12-22 10:59 | XMS_ITS | Encounter Summary ---
Author Organization [facility] Address [facility] [place] [address] Care Team Providers Care Pattern Stamper Name Role Phone Lolly Oliveira MD Primary Care Provider [phone] Reason for Referral * Diagnostic Test (Routine) - Closed Specialty Diagnoses / Procedures Referred By Contkoki t Referred To Contact Cardiology Diagnoses Nonischemic cardiomyopathy Biventricular ICD (implantable cardioverter-defibrillator) in place Procedures Echocardiogram Transthoracic Lalit Mcmahon MD [facility] [place] [address] Referral ID Status Reason Start Date Expiration Date V isits Requested Visits Authorized [id number] Closed Specialty Service Requested 03/15/2023 09/11/2023 1 1 Encounter Details Date Type Department Care Team (Late st Contact Info) Description 03/15/2023 Orders Only Cardiology at [address] [address] Lalit Mcmahon MD [facility] [place] [address] Nonischemic cardiomyopathy; Biventricular ICD (implantable cardioverter-defibrill ator) in place Social History Tobacco Use Types Packs/Day Years Used Date Smoking Tobacco: Never Alcohol Use Standard Drinks/Week Comments Not Currently 0 (1 standard drink = 0.6 oz pur e alcohol) [facility] Inpatient Questions Answer Date Recorded Does [...] AM EST Hospital Encounter Non-[place] [address] Arrived Scheduled Orders Name Type Priority Associated Diagnoses Order Schedule Echocardiogram Transthoracic Echocardiography Routine Nonischemic cardiomyopathy Biventricular ICD (implantable cardioverter-defibr illator) in place Expected: 05/05/2023, Expires: 11/04/2023 documented as of this encounter Visit Diagnoses Diagnosis Nonischemic cardiomyopathy Other primary cardiomyopathies Biventricular ICD (implantable cardioverter-defibrillator) in place documented in this encounter Care Teams Pattern Stamper Relationship Specialty Start Date End Date Lolly Oliveira MD [address] [place] [address] PCP - General 07/17/13 documented as of this encounter
--- OUTSIDE RECORDS SUMMARY | 2023-12-22 10:59 | XMS_ITS | Encounter Summary ---
Author Organization [facility] Address [address] [place] [address] Care Team Providers Care Tiltrotor Crew Chief Name Role Phone Lolly Oliveira MD Primary Care Provider [phone] Encounter Details Date Type Department Care Team (Late st Contact Info) Description 05/29/2002 Results Only [facility] [address] [place] [address] Silvia Diehl, [address] [place] [address] Social History Tobacco Use Types Packs/Day Years [...] ? JING MOTT ? Accession #: ? [id number] : ? 1950 (Age: 51) ??F ?Collect Date: ? 05/29/2002 Location: ? [facility] ? Receive Date: ? 05/31/2002 Provider: ?SILVIA DIEHL BILINGUAL MEDICAL ASSISTANT Copy to: ? Specimen/Source: ?ThinPrep Pap Test, [...] Report [facility] 05/29/2002 05/31/2002 Silvia Diehl BILINGUAL MEDICAL ASSISTANT PATHOLOGY ORDERABLES [facility] [address] [place] [address] documented in this encounter Visit Diagnoses Not on filedocumented in this encounter Care Teams Tiltrotor Crew Chief Relationship Specialty Start Date End Date Lolly Oliveira MD [address] [place] [address] PCP - General 11/13/08 documented as of this encounter
--- OUTSIDE RECORDS SUMMARY | 2023-12-22 10:59 | XMS_ITS | Encounter Summary ---
Author Organization [place] [address] Care Team Providers Care House Repairer Name Role Phone Lolly Oliveira MD Primary Care Provider [phone] Encounter Details Date Type Department Care Team (Latest Contact Info) Description 10/23/2022 10:00 AM EDT - 10/23/2022 11:59 PM EDT Hospital Encounter Non-[place] [address] Discharge Disposition: Home Social History Tobacco Use [...] with spacer fluticasone propionate (Flonase) 50 mcg/actuation [place], Suspension 1 spray by Each Nare route [...] [facility] Hospital Encounter Non-[place] [address] Arrived documented as of this [...] filedocumented in this encounter Care Teams House Repairer Relationship Specialty Start Date End Date Lolly Oliveira MD [address] [place] [address] PCP - General 07/17/13 documented as of this encounter
--- OUTSIDE RECORDS SUMMARY | 2023-12-22 10:59 | XMS_ITS | Encounter Summary ---
Author Organization [facility] Address [address] [place] [address] Care Team Providers Care Ophthalmic Asst Name Role Phone Lolly Oliveira MD Primary Care Provider [phone] Encounter Details Date Type Department Care Team (Late st Contact Info) Description 04/17/2005 Results Only [facility] [place] [facility] [address] [place] [address] Lolly Oliveira MD [address] [place], [place] [phone] Social History Tobacco Use Types Packs/Day Years [...] ? JING ALVARENGA ? Accession #: ? [id number] : ? 1950 (Age: 54) ??F ?Collect Date: ? 04/17/2005 Location: ? [facility] ? Receive Date: ? 04/21/2005 Provider: ?LOLLY OLIVEIRA MD Copy to: ? Specimen/Source: ?ThinPrep Pap Test, Cervix/Endocervix, processed on iLEVEL SolutionsPrep Imaging System, with manual evaluation Last Menstrual [...] Oliveira MD PATHOLOGY ORDERABLES [facility] BLANCO [address] [place] [address] documented in this encounter Visit Diagnoses Not on filedocumented in this encounter Care Teams Ophthalmic Asst Relationship Specialty Start Date End Date Lolly Oliveira MD [address] [place] [address] PCP - General 11/13/08 documented as of this encounter
--- OUTSIDE RECORDS SUMMARY | 2023-12-22 10:59 | XMS_ITS | Encounter Summary ---
Author Organization [facility] [place] [address] Care Team Providers Care Director Market Research Name Role Phone Lolly Oliveira MD Primary Care Provider [phone] Encounter Details Date Type Department Care Team (Latest Contact Info) Description 04/21/2023 10:00 AM EST - 04/21/2023 11:59 PM EST Hospital Encounter Non-[place] [address] Discharge Disposition: Home Social History Tobacco Use [...] with spacer fluticasone propionate (Flonase) 50 mcg/actuation [place], Suspension 1 spray by Each Nare route [...] AM EST Hospital Encounter Non-[place] [address] Arrived documented as of this [...] filedocumented in this encounter Care Teams Director Market Research Relationship Specialty Start Date End Date Lolly Oliveira MD [address] [place] [address] PCP - General 07/17/13 documented as of this encounter
--- OUTSIDE RECORDS SUMMARY | 2023-12-22 10:59 | XMS_ITS | Encounter Summary ---
Author Organization [facility] [place] [address] Care Team Providers Care Aircraft Air Conditioning Mechanic Name Role Phone Lolly Oliveira MD Primary Care Provider [phone] Encounter Details Date Type Department Care Team (Latest Contact Info) Description 10/18/2023 10:00 AM EDT - 10/18/2023 11:59 PM EDT Hospital Encounter Non-Invasive [place] [address] Discharge Disposition: Home Social History Tobacco Use [...] with spacer fluticasone propionate (Flonase) 50 mcg/actuation [place], Suspension 1 spray by Each Nare route daily as needed. documented as of this encounter Plan of Treatment Upcoming Encounters Date Type Department Care Team (Late st Contact Info) Description 01/16/2024 10:00 AM EST Hospital Encounter Non-Invasive [place] [address] Arrived documented as of this encounter Procedures [...] filedocumented in this encounter Care Teams Aircraft Air Conditioning Mechanic Relationship Specialty Start Date End Date Lolly Oliveira MD [address] [place] [address] PCP - General 07/17/13 documented as of this encounter
--- OUTSIDE RECORDS SUMMARY | 2023-12-22 10:59 | XMS_ITS | Encounter Summary ---
Author Organization [facility] Address [facility] [place] [address] Care Team Providers Care Rubber Chemist Name Role Phone Lolly Oliveira MD Primary Care Provider [phone] Encounter Details Date Type Department Care Team (Late st Contact Info) Description 07/16/2022 Telephone Cardiology at [address] [phone] Lalit Mcmahon MD [facility] [place] [address] Social History Tobacco Use Types Packs/Day Years [...] her nonischemic cardiomyopathy. She is scheduled for COMMUTATOR TESTER-D implantation next week and looks forward to the procedure. We will see each other next week. Lalit Mcmahon MD [facility] Cardiac Electrophysiology 07/16/2022 8:52 AM documented in this encounter Plan of Treatment Upcoming Encounters Date Type Department Care Team (Late st Contact Info) Description 01/16/2024 10:00 AM EST Hospital Encounter [place] [address] Arrived documented as of this encounter Visit Diagnoses Not on filedocumented in this encounter Care Teams Rubber Chemist Relationship Specialty Start Date End Date Lolly Oliveira MD [address] [place] [address] PCP - General 07/17/13 documented as of this encounter
--- OUTSIDE RECORDS SUMMARY | 2023-12-22 10:59 | XMS_ITS | Encounter Summary ---
Author Organization [facility] Address [facility] [address] Care Team Providers Care Magnetic Observer Name Role Phone Lolly Oliveira MD Primary Care Provider [phone] Reason for Visit * Auth/Cert (Routine) Specialty Diagnoses / Procedures Referred By Contac t Referred To Contact Diagnoses Left bundle-branch block, unspecified Other cardiomyopathies Left bundle branch block [I44.7]Nonischemic cardiomyopathy [I42.8] Procedures PRG CATH PLMT LEFT HEART CATH & ARTS W/INJ & ANGIO IMG S&I ELECTROPHYSIOLOGY PROCEDURE Lalit Mcmahon MD [facility] ELECTROP[place] [address] [facility] Referral ID Status Reason Start Date Expiration Date Visits Re quested Visits Authorized [id number] 1 1 Encounter Details Date Type Department Care Team (Late st Contact Info) Description 07/23/2022 1:08 PM EDT Anesthesia Event [place] [address] Monae Gonzalez MD [facility] ANESTHESIOLOGY [place] [address] Maria Elena Snyder CRNA [facility] ANESTHESIOLOGY [place] [address] Anesthesia Record Procedure Summary Procedure Name Responsible [...] 1307; median cubital vein (antecubital fossa), right; tagg-ncy-bcvraw catheter system; Anatomical Landmarks; 20 gauge; 07/24/22; [...] 1343; metacarpal vein (top of hand), left; kxeq-qjq-lqontt catheter system; Anatomical Landmarks; US Not Used; [...] Date: 07/23/22 Room / Location: [facility] A-LAB ROOM 3 / [facility] EP LABS Anesthesia Start: 1308 Anesthesia Stop: 1633 Procedure: ELECTROPHYSIOLOGY PROCEDURE (Left) Diagnosis: Left bundle branch block Nonischemic cardiomyopathy (Left bundle branch block [I44.7]Nonischemic cardiomyopathy [I42.8]) Providers: Lalit Mcmahon MD Responsible Provider: Monae Gonzalez MD Anesthesia Type: general ASA Status: 4 All Anesthesia Providers: Anesthesiologist: Monae Gonzalez MD; Dominique Sen MD CAR LUBRICATOR: Maria Elena Snyder CRNA Vitals Value Taken Time BP 131/46 07/23/22 1700 Temp 36.7 ??C (98.1 ??F) 07/23/22 1627 Pulse 67 07/23/22 1703 Resp 14 07/23/22 1703 SpO2 98 % 07/23/22 1703 Pain Level Vitals shown include unvalidated device data. Patient Location: PACU/[facility] Level of Consciousness: Conscious but Sleepy [...] and Nonischemic CM (EF 15-20%)who presents for CROWN BUFFER-D. No prior anesthetic records. Pt states that [...] daughter/son and patient who. Plan discussed with CAR LUBRICATOR. Anesthesia Screening documented in this encounter Plan of Treatment Upcoming Encounters Date Type Department Care Team (Late st Contact Info) Description 01/16/2024 10:00 AM [email or web address] Hospital Encounter Non[place] [address] Arrived documented as of this [...] mg documented in this encounter Care Teams Magnetic Observer Relationship Specialty Start Date End Date Lolly Oliveira MD [address] [place] [address] PCP - General 07/17/13 documented as of this encounter
--- OUTSIDE RECORDS SUMMARY | 2023-12-22 10:59 | XMS_ITS | Encounter Summary ---
Author Organization [facility] [place] [address] Care Team Providers Care Weigher Alloy Name Role Phone Lolly Oliveira MD Primary Care Provider [phone] Reason for Visit * Reason Comments Follow-up 8 weeks UVB treatmen t twice weekly Encounter Details Date Type Department Care Team (Late st Contact Info) Description 07/19/2023 11:00 AM EDT Office Visit Dermatology at [address] [phone] Clay Ramírez MD [address], [place]KA A DERMATOLOGY [place], [place] [phone] Psoriasis Social History Tobacco Use Types Packs/Day [...] [facility] Hospital Encounter Non-[place] [address] Arrived documented as of this encounter Visit Diagnoses Diagnosis Psoriasis Other psoriasis documented in this encounter Care Teams Weigher Alloy Relationship Specialty Start Date End Date Lolly Oliveira MD [address] [place] [address] PCP - General 07/17/13 documented as of this encounter
--- OUTSIDE RECORDS SUMMARY | 2023-12-22 10:59 | XMS_ITS | Encounter Summary ---
Author Organization [facility] [place] [address] Care Team Providers Care Clothes Designer Name Role Phone Lolly Oliveira MD Primary Care Provider [phone] Encounter Details Date Type Department Care Team (Late st Contact Info) Description 03/17/2023 Telephone Cardiology at [address] [phone] Saranya Ma Social History Tobacco Use Types Packs/Day Years Used Date Smoking Tobacco: Never Alcohol Use Standard Drinks/Week Comments Not Currently 0 (1 standard drink = 0.6 oz pur e alcohol) [facility] Inpatient Questions Answer Date Recorded Does [...] AM EST Echo order faxed to [facility] at [phone]. No Prior auth needed. Ref #:[id number]. Saranya Ma Sr. Clinical Procedure [place]/Parts Professional documented in this encounter Plan of Treatment Upcoming Encounters Date Type Department Care Team (Late st Contact Info) Description 01/16/2024 10:00 AM [facility] Hospital Encounter Non-Invasive [place] [address] Arrived documented as of this encounter Visit Diagnoses Not on filedocumented in this encounter Care Teams Clothes Designer Relationship Specialty Start Date End Date Lolly Oliveira MD [address] [place] [address] PCP - General 07/17/13 documented as of this encounter
--- OUTSIDE RECORDS SUMMARY | 2023-12-22 10:59 | XMS_ITS | Encounter Summary ---
Author Organization [facility] Address [facility] [address] Care Team Providers Care Project Administrative Assistant Name Role Phone Lolly Oliveira MD Primary Care Provider [phone] Reason for Visit * Auth/Cert (Routine) Specialty Diagnoses / Procedures Referred By Contac t Referred To Contact Diagnoses Left bundle-branch block, unspecified Other cardiomyopathies Left bundle branch block [I44.7]Nonischemic cardiomyopathy [I42.8] Procedures PRG CATH PLMT LEFT HEART CATH & ARTS W/INJ & ANGIO IMG S&I ELECTROPHYSIOLOGY PROCEDURE Lalit Mcmahon MD [facility] [place] [address] [facility] Referral ID Status Reason Start Date Expiration Date Visits Re quested Visits Authorized [id number] 1 1 Encounter Details Date Type Department Care Team (Latest Contact Info) Description 07/23/2022 11:39 AM EDT - 07/24/2022 10:23 AM EDT Hospital Encounter [place] [phone] Lalit Mcmahon MD [facility] [address] [place] [address] Left bundle branch block; Nonischemic cardiomyopathy; Cardiac resynchronization therapy defibrillator (ASSEM[employer]ER AND TESTER [employer]-D) in place Discharge Disposition: Home Social History [...] Luna Mott Patient Age: 71 y.o. Language: [place] Citizen Race: White Ethnicity: Not nor Admit date: 07/23/2022 Discharge date and time: 07/24/22 Attending Physician: Lalit Mcmahon MD Discharge Physician: Lalit Mcmahon MD Follow-up Recommendations for Providers: - s/p ASSEM[employer]ER AND TE[employer]-D implant - post implant QRS 130 ms - reviewed post-implant instructions - no medication changes - Follow up in device clinic for wound/device check in ~10 days ([facility]) Inpatient Provider Contact Information: Cardiac Electrophysiology - Discharge Diagnoses (Hospital Problems) and Secondary Diagnoses (Chronic Problems): Active Hospital Problems Diagnosis ??? HFrEF (heart failure with reduced ejection fraction) Resolved Hospital Problems No resolved problems to display. Active Non-Hospital Problems Diagnosis ??? Dermatofibroma ??? Nevus ??? Solar lentigo Operations/Major Procedures: 07/23/22: [facility] ASSEMBLER AND TESTER ELECTRON[employer]-D implant History of Presentation: 71 y.o. female with a history of HFrEF, LBBB, QRS >150, NYHA II who is POD#1 of ASSEMBLER AND TESTER [employer]RON[employer]-D implant ([employer]). Hospital Course: Elective admission for ASSEMBLER AND TE[employer]-D implant Admitted post-implant for pain management, telemetry [...] (heart failure with reduced ejection fraction) [I50.20] ASSEMBLER AND TESTER [employer]-D implant Admission Condition: good Indication for Admission: [...] g Refills: 3 fluticasone propionate 50 mcg/actuation [place], Suspension Commonly known as: Flonase 1 spray [...] the incision. Make sure to use a protective clothing issuer (such as a towel) in between the [...] F. The office scheduling phone number is [phone]. ARM MOVEMENT RESTRICTIONS POST-IMPLANT - Do not [...] please call the Cardiac ElectrophysiologyTriage Nurse at [phone], option 3. General Instructions None Discharge References/Attachments None Lalit Mcmahon MD S Cardiac Electrophysiology 07/24/2022 12:33 PM documented in this encounter Discharge Instructions * Patient Instructions* Fadi Nunez MD - 07/24/2022 8:10 AM EDT FINAL ICD/PACEMAKER RECOMMENDATIONS: 1. Standard post implant discharge instructions (see below): 2. Medications as listed above. You may use ice packs over the incision. Make sure to use a protective clothing issuer (such as a towel) in between the [...] F. The office scheduling phone number is [phone]. ARM MOVEMENT RESTRICTIONS POST-IMPLANT - Do not [...] please call the Cardiac ElectrophysiologyTriage Nurse at [phone], option 3. documented in this encounter Medications [...] with spacer fluticasone propionate (Flonase) 50 mcg/actuation [place], Suspension 1 spray by Each Nare route [...] Cardiac Electrophysiology Post-Implant Device Interrogation Luna Mott [id number] 07/24/2022 History: Luna Mott is a 71 y.o. female with a history of HFrEF, LBBB, QRS >150, NYHA II who is POD#1 of ASSEMBLER AND TE[employer]-D implant ([employer]). Overall feels well this morning. Ready [...] WOB Neuro- A&Ox3 Device Interrogation: Data ?? Passenger Brakeman Model # Serial # Generator [employer] [id number] Atrial Lead [employer] [id number] RV Lead [employer] [id number] LV Lead [employer] [id number] ?? Diagnostics Pacing Mode: DDD 60-130 Underlying Rhythm: [place] Atrial Episodes: None Ventricular Episodes: None FINAL PROGRAMMING: Pacing: Mode Lower rate (ppm) Upper rate (ppm) ?? DDD 60 130 VF: Rate (bpm) #Antitachycardia pacing First shock energy (J) ?? 200 Quick convert 41 VT: 170 Monitor only Monitor only ? Battery and Leads Impedances (ohms) Sensing (mV) Thresholds HV RA RV LV RA RV LV RA RV LV [phone] (LVa) 7.7 13.1 >25 0.4V @ 0.4 ms 0.4V @ 0.4 ms 0.5 V @ 1.0 ms POD#1 CXR: All leads in nominal positioning Impression: 71 y.o. female who is s/p ASSEM[employer]ER AND TE[employer]-D implant for LBBB, NYHA II, HFrEF. - Appropriate device function post-implant - CXR negative for post-implant complications - Changed sensed AV delay from 130 to 110 Plan: 1. Reviewed standard post-implant discharge instructions (see patient instructions) including arm restrictions, wound care, bathing, and driving 2. No medication changes. 3. Follow up in device clinic for wound/device check in ~10 days ([facility]) Fadi Nunez MD 07/24/2022 Pager: [phone] I met with the patient today and [...] agreement. ? Dr. Lalit Mcmahon, electrophysiology attending ([id number]) * Zaria Wright RN - 07/23/2022 8:28 [...] HF, QRS > 150 ms presents for ASSEMBLER AND TESTER [employer]-D placement. ROS: Denies recent fevers or chills [...] 0.9) flush 5 mL 5 mL Intravenous M24RPiesrLalit ramos MD ??? sodium chloride 0.9 % [...] HF, QRS > 150 ms presents for ASSEMBLER AND TESTER [employer]RON[employer]-D placement. Backup would be LBBAP lead. Antibiotics: cefazolin Rationales for, intended benefits and potential risk of planned procedures reviewed. The patient indicated understanding and agreement with the plan. Informed consent signed. Procedure checklist completed. Fadi Nunez MD Cardiac Electrophysiology Fellow [facility] Pager [phone] 07/23/2022 I met with the patient today [...] agreement. ? Dr. Lalit Mcmahon, electrophysiology attending ([id number]) documented in this encounter Miscellaneous Notes * Brief Op Note - Lalit Mcmahon MD - 07/23/2022 4:04 PM EDT Brief Operative Note Patient Name: Luna Mott : [id number] MR#: [id number] Case Date: 07/23/2022 Surgeon: Surgeon(s) and Role: [...] AM EST Hospital Encounter Non-Invasive [place] [address] Arrived Scheduled Orders Name Type Priority Associated Diagnoses Orde r Schedule EKG 12 Lead ECG Routine Cardiac resynchronization therapy defibrillator (ASSEM[employer]ER AND TESTER [employer]RON[employer]-D) in place One Time for 1 Occurrences [...] (Bezet) 522 ms MUSE SYSTEM Calculated R [place] 78 degrees MUSE SYSTEM Calculated T [place] -71 degrees MUSE SYSTEM INTERPRETATION AV dual-paced [...] have questions please contact the health director day care center that requested your imaging first. ? Electronically signed by: Kwame Vargas MD, [facility] ([phone]), at 07/24/2022 6:43 AM Narrative 07/24/2022 6:43 [...] who have questions please contactthe health director day care center that requested your imaging first. Electronically signed by: Kwame Vargas MD, [facility]([phone]), at 07/24/2022 6:43 AM Lalit Mcmahon MD IMG DX ORDERABLES * ELECTROPHYSIOLOGY PROCEDURE (07/23/2022 1:11 PM EDT) Anatomical Region Laterality Modality Other Narrative 07/23/2022 4:24 PM EDT Table formatting from the original result was not included. BIVENTRICULAR ICD IMPLANTATION Briefcase Sewer: Lalit Mcmahon MD Fellow: Fadi Nunez MD [...] the entire procedure. LEAD AND GENERATOR DATA: Passenger Brakeman Model # Serial # Generator [employer] [id number] Atrial Lead [employer] [id number] RV Lead [employer] [id number] LV Lead [employer] [id number] PACE/SENSE DATA: Sensed wave (mV) Threshold (V) [...] (cGycm2) 300 CONCLUSIONS: Successful implantation of a [employer] biventricular ICD for primary prevention and treatment of symptoms related to congestive heart failure. Follow up in EP clinic in 1-2 months. Procedures performed: new ICD system ( cpt 08027-L5); implant LV lead at time of ICD insertion (cpt 10432) I have read, edited and approve of this report: Lalit Mcmahon MD S Cardiac Electrophysiology 07/23/2022 4:22 PM Procedure Note Lalit Mcmahon MD - 07/23/2022 BIVENTRICULAR ICD IMPLANTATION Briefcase Sewer: Lalit Mcmahon MD Fellow: Fadi Nunez MD [...] in the entireprocedure. LEAD AND GENERATOR DATA: Passenger Brakeman Model # Serial # Generator [employer] [id number] Atrial Lead [employer] [id number] [id number] RV Lead [employer] 0672 [id number] LV Lead [employer] [id number] PACE/SENSE DATA: Sensed wave (mV) Threshold (V) [...] (cGycm2) 300 CONCLUSIONS: Successful implantation of a [employer] biventricular ICD forprimary prevention and treatment of symptoms related to congestive heartfailure. Follow up in EP clinic in 1-2 months. Procedures performed: new ICD system ( cpt 74470-L3); implant LV lead attime of ICD insertion (cpt 43532) I have read, edited and approve of this report: Lalit Mcmahon MD [facility] Cardiac Electrophysiology 07/23/2022 4:22 PM Lalit Mcmahon MD EP PROCEDURE ORDERAB LES * POCT Glucose (07/23/2022 12:54 PM EDT) Glucose, POC 83 65 - 199 mg/dL [facility] Comment: Supplemental ranges: <140 mg/dL before meals <180 mg/dL all other times of the day Blood 07/23/2022 12:5 4 PM EDT 07/23/2022 12:54 PM EDT Lalit Mcmahon MD POINT OF CARE TEST O RDERABLES Performing Organization Address [facility] Co de Phone Number [facility] [place] [place] [address] * EKG 12 Lead (07/23/2022 12:33 PM EDT) Ventricular rate 72 BPM MUSE SYSTEM Atrial Rate 72 BPM MUSE SYSTEM P-R Interval 158 ms MUSE SYSTEM QRS Duration 176 ms MUSE SYSTEM Q-T Interval 458 ms MUSE SYSTEM QTC Calculated (Bezet) 501 ms MUSE SYSTEM Calculated P [place] 34 degrees MUSE SYSTEM Calculated R [place] 12 degrees MUSE SYSTEM Calculated T [place] -173 degrees MUSE SYSTEM INTERPRETATION Normal sinus rhythm Left bundle branch block Abnormal ECG No previous ECGs available Confirmed by MD Salome, Lalit ([id number]) on 07/23/2022 1:19:03 PM MUSE SYSTEM 07/23/2022 12:3 3 PM EDT 07/23/2022 1:19 PM EDT Lalit Mcmahon MD ECG ORDERABLES Performing Organization Address [facility] de Phone Number MUSE SYSTEM * Differential, Automated (07/23/2022 11:55 AM EDT) Neutrophil % 62.6 % [facility] Neutrophil Absolute 4.14 1.70 - 6.10 x10(3)/[facility] Lymph % 27.0 % [facility] Lymphocytes Abs 1.8 0.9 - 3.2 x10(3)/[facility] Monocyte % 7.3 % [facility] Monocyte Abs 0.5 0.3 - 0.9 x10(3)/[facility] Eos % 2.3 % [facility] Eosinophils Abs 0.2 0.0 - 0.4 x10(3)/[facility] Basophil % 0.6 % [facility] Baso Absolute 0.0 0.0 - 0.1 x10(3)/[facility] Immature Gran % 0.20 % [facility] Comment: Immature granulocytes(IG's)percentage and absolute count will include metamyelocytes, myelocytes, and promyelocytes. Blood smears from CBCs yielding IG's will be scanned manually for concordance. If this scan disagrees with the automated IG or if promyelocytes are noted, a manual differential will be performed. Immature Gran Absolute 0.01 0.00 - 0.04 x10(3)/[facility] Blood 07/23/2022 11:5 5 AM EDT 07/23/2022 12:07 PM EDT Narrative Resulting Agency Comment Spec In Lab Lalit Mcmahon MD HEMATOLOGY ORDERABLE S [facility] [place] [address] * Hemogram (07/23/2022 11:55 AM EDT) White Blood Cell 6.6 4.0 - 9.5 x10(3)/[facility] Red Blood Cell 4.50 4.00 - 5.21 x10(6)/[facility] Hemoglobin 13.7 11.7 - 15.5 g/dL [facility] Hematocrit 42.5 35.7 - 45.8 % [facility] Mean Cell Volume 94.4 82.6 - 94.4 fL [facility] Mean Cell Hemoglobin 30.4 27.1 - 32.0 pg [facility] Mean Cell Hemoglobin Concentration 32.2 31.7 - 35.0 g/dL [facility] Platelet 193 145 - 357 x10(3)/[facility] RDW Standard Deviation 45.5 37.0 - 46.0 fL [facility] RDW coefficient of variation 13.2 11.5 - 14.1 % [facility] Mean Platelet Volume 9.5 7.6 - 12.9 fL [facility] NRBC% auto 0.0 % [facility] NRBC Absolute 0.000 0.000 - 0.000 x10(3)/mcL [facility] Blood 07/23/2022 11:5 5 AM EDT 07/23/2022 12:07 PM EDT Narrative Resulting Agency Comment Spec In Lab Lalit Mcmahon MD HEMATOLOGY ORDERABLE S [facility] [address] [place] [address] * (ABNORMAL) BMP w/fasting Glucose (07/23/2022 11:55 AM EDT) Glucose Fasting 110(H) 65 - 99 mg/dL [facility] Comment: ?Fasting* Glucose Interpretive [...] of Diabetes Mellitus, Position Statement from the [place] [employer]. ??Diabetes Care, Volume 33, Supplement 1, Mar 2009 Blood Urea Nitrogen 23(H) 8 - 18 mg/dL [facility] Creatinine 1.07 0.70 - 1.20 mg/dL [facility] Sodium 141 135 - 145 mmol/L [facility] Potassium 4.8 3.5 - 5.0 mmol/L [facility] Comment: Please note: ??Patients with WBC >100,000 may have falsely elevated Potassium levels. ??For accurate Potassium quantification in these patients send serum separator tube (gold top) for subsequent determinations. ??Contact the Clinical Chemistry Laboratory if there are any questions. Chloride 106 98 - 107 mmol/L [facility] Carbon Dioxide 26 22 - 31 mmol/L [facility] Anion Gap 9 5 - 15 mmol/L [facility] Calcium 9.7 8.5 - 10.5 mg/dL [facility] Est Glomerular Filtration Rate 55(L) >=60 mL/min/1. 73 m?? [facility] Comment: This patient's estimated [...] Mcmahon MD CHEMISTRY ORDERABLES Performing Organization Address [facility] Co de Phone Number [facility] [place] [address] * Prothrombin Time (07/23/2022 11:55 AM EDT) Prothrombin Time 11.7 9.4 - 12.5 sec [facility] International Normalization Ratio 1.0 [facility] Comment: An INR <2.0 [...] MD HEMATOLOGY ORDERABLE S Performing Organization Address City/[facility] Co de Phone Number [facility] [place] [address] documented in this encounter Visit Diagnoses Diagnosis HFrEF (heart failure with reduced ejection fraction)- Primary Left bundle branch block Other left bundle branch block Nonischemic cardiomyopathy Other primary cardiomyopathies Cardiac resynchronization therapy defibrillator (ASSEM[employer]ER AND TE[employer]RON[employer]-D) in place Left bundle branch block Other [...] Routine documented in this encounter Care Teams Project Administrative Assistant Relationship Specialty Start Date End Date Lolly Oliveira MD [address] [place] [address] PCP - General 07/17/13 documented as of this encounter
--- OUTSIDE RECORDS SUMMARY | 2023-12-22 10:59 | XMS_ITS | Encounter Summary ---
Author Organization [facility] Address [address] [place] [address] Care Team Providers Care Practicing Urologist Name Role Phone Lolly Oliveira MD Primary Care Provider [phone] Encounter Details Date Type Department Care Team (Late st Contact Info) Description 05/27/2021 Lab Requisition [facility] Pathology & Laboratory Medicine - [address] [address] Iman Moran, DO [address] [place], [place] [id number] Encounter for other general examination Social History [...] management options, if applicable. 05/30/2021 13:31 EDT [facility] Final Diagnosis A. COLON, POLYP AT 90 CM, BIOPSY/POLYPECTOM Y: - Tubular adenoma. 05/30/2021 13:31 [facility] Attestation By the signature below, the attending physician certifies that they have 1) personally conducted a gross and/or microscopic examination of the described specimen(s), and/or personally interpreted the results of laboratory testing of the described specimen(s), and 2) personally rendered or confirmed the above diagnosis. 05/30/2021 13:31 [facility] at 1331 Clinical History Severe diverticula and polypectomy x1 05/30/2021 13:31 [facility] Gross Description A. Received in formalin labelled with proper patient identification (initials J, K) and colon polyp x1 at 90 cm is a light pineda polypoid tissue measuring 0.2 x 0.2 x 0.2 cm. Submitted intact in A1. MICKEY CARLOS(ASCP) 05/27/2021 19:11 05/30/2021 13:31 [facility] Performing Lab [facility] 05/30/2021 13:31 [facility] Scanned Images 05/30/2021 13:31 [facility] Tissue ENTIRE COLON / Unknown 05/27/2021 11:23 EDT 05/27/2021 16:33 EDT Iman Moran DO PATHOLOGY ORDERABLES [facility] [address] [place] [address] documented in this encounter Visit Diagnoses Diagnosis Encounter for other general examination documented in this encounter Care Teams Practicing Urologist Relationship Specialty Start Date End Date Lolly Oliveira MD [address] [place] [address] PCP - General 11/13/08 documented as of this encounter
--- OUTSIDE RECORDS SUMMARY | 2023-12-22 10:59 | XMS_ITS | Encounter Summary ---
Author Organization [facility] [place] [address] Care Team Providers Care Sales Coach Name Role Phone Lolly Oliveira MD Primary Care Provider Encounter Details Date Type Department Care Team (Latest Contact Info) Description 07/20/2023 10:00 AM EDT - 07/20/2023 11:59 PM EDT Hospital Encounter Non-[place]vasive [place] [phone] Discharge Disposition: Home Social History Tobacco Use [...] with spacer fluticasone propionate (Flonase) 50 mcg/actuation [place], Suspension 1 spray by Each Nare route daily as needed. documented as of this encounter Plan of Treatment Upcoming Encounters Date Type Department Care Team (Late st Contact Info) Description 01/16/2024 10:00 AM [facility] Hospital Encounter Non-Invasive [place] [address] Arrived documented as of this encounter Procedures [...] filedocumented in this encounter Care Teams Sales Coach Relationship Specialty Start Date End Date Lolly Oliveira MD [address] [place] [address] PCP - General 07/17/13 documented as of this encounter
--- OUTSIDE RECORDS SUMMARY | 2023-12-22 10:59 | XMS_ITS | Encounter Summary ---
Author Organization [facility] [place] [address] Care Team Providers Care Teacher Of The Handicapped Name Role Phone Lolly Oliveira MD Primary Care Provider [phone] Encounter Details Date Type Department Care Team (Latest Contact Info) Description 01/21/2023 10:00 AM EST - 01/21/2023 11:59 PM EST Hospital Encounter Non-Invasive [place] [phone] Discharge Disposition: Home Social History Tobacco Use [...] with spacer fluticasone propionate (Flonase) 50 mcg/actuation [place], Suspension 1 spray by Each Nare [...] EST Hospital Encounter Non-Invasive [place] [address] Arrived documented as of [...] on filedocumented in this encounter Care Teams Teacher Of The Handicapped Relationship Specialty Start Date End Date Lolly Oliveira MD [address] [place] [address] PCP - General 07/17/13 documented as of this encounter
--- OUTSIDE RECORDS SUMMARY | 2023-12-22 10:59 | XMS_ITS | Encounter Summary ---
Author Organization [facility] [address] Care Team Providers Care Plastic Mixer Name Role Phone Lolly Oliveira MD Primary Care Provider [phone] Reason for Visit * Diagnostic Test (Routine) - Closed Specialty Diagnoses / Procedures Referred By Contac t Referred To Contact Radiology Diagnoses Left bundle branch block Nonischemic cardiomyopathy Procedures MRI Cardiac Morphology Function With Flow Velocity Quantification wwo Contrast MRI Cardiac Morphology Function wwo Contrast Lalit Mcmahon MD [facility] [address] [facility] [place] [address] Referral ID Status Reason Start Date Expiration Date V isits Requested Visits Authorized [id number] Closed Specialty Service Requested 05/06/2022 11/07/2023 2 1 Encounter Details Date Type Department Care Team (Latest Contact Info) Description 07/14/2022 9:09 AM EDT - 07/14/2022 11:59 PM EDT Hospital [place] [address] Lalit Mcmahon MD [facility] [place] [address] Discharge Disposition: Home Social History Tobacco Use [...] with spacer fluticasone propionate (Flonase) 50 mcg/actuation [place], Suspension 1 spray by Each Nare route [...] AM EST Hospital Encounter Non-[place] [address] Arrived documented as of this [...] mLs documented in this encounter Care Teams Plastic Mixer Relationship Specialty Start Date End Date Lolly Oliveira MD [address] [place] [address] PCP - General 07/17/13 documented as of this encounter
--- OUTSIDE RECORDS SUMMARY | 2023-12-22 10:59 | XMS_ITS | Encounter Summary ---
Author Organization [facility] [place] [address] Care Team Providers Care Sales Development Director Name Role Phone Lolly Oliveira MD Primary Care Provider [phone] Reason for Visit * Reason Onset Date Comments Other 07/24/2022 Implanted Cardia c Device Teaching/Education Encounter Details Date Type Department Care Team (Late st Contact Info) Description 07/24/2022 Notes Only Cardiology at [address] [phone] Letha Arroyo Other (Implanted Cardiac Device Teaching/Education) [...] to call the Cardiac Device Clinic at [phone] with any questions. Plan: Post op check: [...] st Contact Info) Description 01/16/2024 10:00 AM [facility] Hospital Encounter Non-Invasive [place] [address] Arrived documented as of this encounter Visit Diagnoses Not on filedocumented in this encounter Care Teams Sales Development Director Relationship Specialty Start Date End Date Lolly Oliveira MD [address] [place] [address] PCP - General 07/17/13 documented as of this encounter
--- OUTSIDE RECORDS SUMMARY | 2023-12-22 10:59 | XMS_ITS | Encounter Summary ---
Author Organization [facility] Address [address] [place] [address] Care Team Providers Care Administrative Assistant Data Entry Name Role Phone Lolly Oliveira MD Primary Care Provider [phone] Encounter Details Date Type Department Care Team (Late st Contact Info) Description 05/02/[address] [facility] - Maple conversion [address] [place] [address] Lolly Oliveira MD [address] [place], [place] [id number] Social History Tobacco Use Types Packs/Day Years [...] 68. [facility] Report Status Final [id number] [facility] 05/02/2004 9:32 EST 05/10/2004 9:32 EST Lolly Oliveira MD MICROBIOLOGY - GENER AL ORDERABLES [facility] [address] [place] [address] * CYTOPATHOLOGY (05/02/2004 0:00 EST) Pathology Report: CYTOPATHOLOGY REPORT Reports generated via electronic interface contain original data; however they are lacking the format of the original report. Caution should be taken when reading/interpreti ng unformatted reports. Name: ? JING ALVARENGA ? Accession #: ? [id number] : ? 1950 (Age: 53) ??F ?Collect [...] de Phone Number [facility] [address] [place] [address] documented in this encounter Visit Diagnoses Not on filedocumented in this encounter Care Teams Administrative Assistant Data Entry Relationship Specialty Start Date End Date Lolly Oliveira MD [address] [place] [address] PCP - General 11/13/08 documented as of this encounter
--- OUTSIDE RECORDS SUMMARY | 2023-12-22 10:59 | XMS_ITS | Encounter Summary ---
Author Organization [facility] [place] [address] Care Team Providers Care Public Safety Teacher Name Role Phone Lolly Oliveira MD Primary Care Provider [phone] Encounter Details Date Type Department Care Team [...] AM EST Hospital Encounter Non[place] [address] Arrived documented as of this encounter Visit Diagnoses Not on filedocumented in this encounter Care Teams Public Safety Teacher Relationship Specialty Start Date End Date Lolly Oliveira MD [address] [place] [address] PCP - General 07/17/13 documented as of this encounter
--- OUTSIDE RECORDS SUMMARY | 2023-12-22 10:59 | XMS_ITS | Encounter Summary ---
Author Organization [facility] Address [address] [place] [address] Care Team Providers Care International Logistics Coordinator Name Role Phone Lolly Oliveira MD Primary Care Provider [phone] Encounter Details Date Type Department Care Team (Late st Contact Info) Description 03/06/2003 Results Only [facility] [place] - [place] conversion [address] [place] [address] Lolly Oliveira MD [address] [place], [place] [id number] Social History Tobacco Use Types Packs/Day Years [...] Oliveira MD PATHOLOGY ORDERABLES Performing Organization Address City/State/[facility] Co de Phone Number [facility] [address] [place] [address] documented in this encounter Visit Diagnoses Not on filedocumented in this encounter Care Teams International Logistics Coordinator Relationship Specialty Start Date End Date Lolly Oliveira MD [address] [place] [address] PCP - General 11/13/08 documented as of this encounter
--- OUTSIDE RECORDS SUMMARY | 2023-12-22 10:59 | XMS_ITS | Encounter Summary ---
Author Organization [facility] Address [address] [place] [address] Care Team Providers Care Consulting Analyst Name Role Phone Lolly Oliveira MD Primary Care Provider [phone] Encounter Details Date Type Department Care Team (Late st Contact Info) Description 06/16/2012 Results Only [facility] Services - [facility] ([facility] [place] [address] [place], [place] [id number] Lolly Oliveira MD [address] [place], [place] [id number] Social History Tobacco Use Types Packs/Day Years [...] ? JING ALVARENGA ? Accession #: ? [id number] : ? 1950 (Age: 61) ??F ?Collect [...] MD PATHOLOGY ORDERABLES [facility] [address] [place] [address] documented in this encounter Visit Diagnoses Not on filedocumented in this encounter Care Teams Consulting Analyst Relationship Specialty Start Date End Date Lolly Oliveira MD [address] [place] [address] PCP - General 11/13/08 documented as of this encounter
--- OUTSIDE RECORDS SUMMARY | 2023-12-22 10:59 | XMS_ITS | Encounter Summary ---
Author Organization [facility] Address [address] [place] [address] Care Team Providers Care Cnc Mill Operator Name Role Phone Lolly Oliveira MD Primary Care Provider [phone] Encounter Details Date Type Department Care Team (Late st Contact Info) Description 11/13/[address] [facility] Pathology & Laboratory Medicine - [address] [id number] Outr Resulting Lab, Provider Social History Tobacco [...] [facility] [address] [place] [address] * COVID-19 TESTING (11/13/2020 7:30 EDT) COVID-19 rt-PCR Result Negative Negative 11/14/2020 11:46 EDT [facility] Comment: This test has [...] performed using the med SARS-CoV-2 assay ([employer] on the Med 6800 System Performing Lab Med [address] [facility] 11/14/2020 11:46 EDT [facility] Swab 11/13/2020 7:30 EDT 11/13/2020 20:57 EDT Provider Outr Resulting Lab MICROBIOLOGY - GENERAL ORDERABLES [facility] [address] [place] [address] documented in this encounter Visit Diagnoses Not on filedocumented in this encounter Care Teams Cnc Mill Operator Relationship Specialty Start Date End Date Lolly Oliveira MD [address] [place] [address] PCP - General 11/13/08 documented as of this encounter
--- OUTSIDE RECORDS SUMMARY | 2023-12-22 10:59 | XMS_ITS | Encounter Summary ---
Author Organization [facility] Address [address] [place] [address] Care Team Providers Care Masonry Contractor Administrator Name Role Phone Lolly Oliveira MD Primary Care Provider [phone] Encounter Details Date Type Department Care Team (Late st Contact Info) Description 04/01/2005 Results Only [facility] - Maple conversion [address] [place] [address] Blair Dukes MD [address] [place] [id number] Social History Tobacco Use Types Packs/Day Years [...] ? JING ALVARENGA ? Accession #: ? [id number] ? : ? 1950 (Age: 54) ??F [...] ? Received in [place]e' s fixative labelled [place] and #1 ??terminal ileum bx is a single 0.3 x 0.2 x 0.2 cm tissue, submitted intact as (A). Received in [place]e' s fixative labelled [place] and #2 ??transverse colon bx is a single 0.2 x 0.2 x 0.2 cm tissue, submitted intact as (B). ??(Dr. Lechuga)/[facility] End of Report [facility] 04/01/2005 04/02/2005 15: 24 EST Blair Dukes MD PATHOLOGY ORDERABLES [facility] [address] [place] [address] documented in this encounter Visit Diagnoses Not on filedocumented in this encounter Care Teams Masonry Contractor Administrator Relationship Specialty Start Date End Date Lolly Oliveira MD [address] [place] [address] PCP - General 11/13/08 documented as of this encounter
--- OUTSIDE RECORDS SUMMARY | 2023-12-22 10:59 | XMS_ITS | Encounter Summary ---
Author Organization [facility] Address [address] [place] [address] Care Team Providers Care Trim Machine Adjuster Name Role Phone Lolly Oliveira MD Primary Care Provider [phone] Encounter Details Date Type Department Care Team (Late st Contact Info) Description 02/20/2020 Lab Requisition [facility] Pathology & Laboratory Medicine - [address] [id number] Outr Resulting Lab, Provider Social History Tobacco [...] in accordance with CLIA regulations, [employer] (CAP) guidelines (May 25, 2019), and FDA guidance (May 06, 2019). This test is only for use under the Food and Drug Administration's Emergency Use Authorization. Swab ENTIRE NASOPHARYNX / Unknown 02/19/2020 16:30 EST 02/20/2020 16:09 EST Provider Outr Resulting Lab MICROBIOLOGY - GENERAL ORDERABLES [facility] [place], [place] * COVID-19 TESTING (02/19/2020 16:30 EST) COVID-19 rt-PCR Result NEGATIVE Negative 02/22/2020 23:[address] [facility] Comment: 2019-novel Coronavirus (2019-nCoV) not detected [...] in accordance with CLIA regulations, [employer] [place] (CAP) guidelines (May 25, 2019), and FDA guidance (May 06, 2019). This test is only for use under the Food and Drug Administration's Emergency Use Authorization. Performing Lab [facility] 02/22/2020 23:41 EST [facility] Swab 02/19/2020 16:3 0 EST 02/20/2020 16:09 EST Provider Outr Resulting Lab MICROBIOLOGY - GENERAL ORDERABLES [facility] [address] [place] [address] [facility] [place], [place] documented in this encounter Visit Diagnoses Not on filedocumented in this encounter Care Teams Trim Machine Adjuster Relationship Specialty Start Date End Date Lolly Oliveira MD [address] [place] [address] PCP - General 11/13/08 documented as of this encounter
--- OUTSIDE RECORDS SUMMARY | 2023-12-22 10:59 | XMS_ITS | Encounter Summary ---
Author Organization [facility] Address [address] [place] [address] Care Team Providers Care Legal Document Specialist Name Role Phone Lolly Oliveira MD Primary Care Provider [phone] Encounter Details Date Type Department Care Team (Late st Contact Info) Description 04/25/2009 Orders Only [facility] Laboratory Services - [facility] [place] [address] [place], [place] [phone] Lolly Oliveira MD [address] [place], [place] [phone] Social History Tobacco Use Types Packs/Day Years [...] ? JING ALVARENGA ? Accession #: ? [id number] ? : ? 1950 (Age: 58) ??F [...] reviewed and electronically signed by: ? Helena Gurmeet, [place](ASCP) ? Report Date: ??04/29/2009 10:38 ? End of Report ? [facility] 04/25/2009 04/26/2009 Lolly Oliveira MD PATHOLOGY ORDERABLES [facility] [address] [place] [address] documented in this encounter Visit Diagnoses Not on filedocumented in this encounter Care Teams Legal Document Specialist Relationship Specialty Start Date End Date Lolly Oliveira MD [address] [place] [address] PCP - General 11/13/08 documented as of this encounter
--- OUTSIDE RECORDS SUMMARY | 2023-12-22 10:59 | XMS_ITS | Encounter Summary ---
Author Organization [facility] Address [address] [place] [address] Care Team Providers Care After School Teacher Name Role Phone Unavailable Primary Care Provider Unavailabl e Encounter Details Date Type Department Care Team (Late st Contact Info) Description 11/07/2008 Orders Only [facility] - [facility] [place] [address] [place] [address] Kenneth Parker MD [address] [place] [address] Social History Tobacco Use Types Packs/Day Years [...] ? LYLE, JING ? Accession #: ? [id number] ? : ? 1950 (Age: 58) ??F [...] Co de Phone Number [facility] [address] [place] [address] documented in this encounter Visit Diagnoses Not on filedocumented in this encounter
--- OUTSIDE RECORDS SUMMARY | 2023-12-22 10:59 | XMS_ITS | Encounter Summary ---
Author Organization [facility]ly [facility] [place] [address] Care Team Providers Care Early Childhood Teacher Assistant Name Role Phone Lolly Oliveira MD Primary Care Provider [phone] Reason for Visit * Auth/Cert (Routine) Specialty Diagnoses / Procedures Referred By Contac t Referred To Contact Diagnoses Left bundle-branch block, unspecified Other cardiomyopathies Left bundle branch block [I44.7]Nonischemic cardiomyopathy [I42.8] Procedures PRG CATH PLMT LEFT HEART CATH & ARTS W/INJ & ANGIO IMG S&I ELECTROPHYSIOLOGY PROCEDURE Lalit Mcmahon MD [facility] [place] [address] [facility] Referral ID Status Reason Start Date Expiration Date Visits Re quested Visits Authorized [id number] 1 1 Encounter Details Date Type Department Care Team (Late st Contact Info) Description 07/23/2022 1:00 PM EDT - 07/23/2022 5:30 PM EDT Surgery [place] [address] Lalit Mcmahon MD [facility] [place] [address] ELECTROPHYSIOLOGY PROCEDURE Social History Tobacco Use Types Packs/Day Years Used Date Smoking Tobacco: Never Tobacco Cessation:Counseling Given: Not Answered Alcohol Use Standard Drinks/Week Comments Not Currently 0 (1 standard drink = 0.6 oz pur e alcohol) [facility] Inpatient Questions Answer Date Recorded Does Anyone [...] Luna Mott Patient Age: 71 y.o. Language: Kuwaiti Race: White Ethnicity: Not nor Admit date: 07/23/2022 Discharge date and time: 07/24/22 Attending Physician: Lalit Mcmahon MD Discharge Physician: Lalit Mcmahon MD Follow-up Recommendations for Providers: - s/p INSTRUCTIONAL DESIGN TECHNOLOGIST-D implant - post implant QRS 130 ms [...] Nevus ??? Solar lentigo Operations/Major Procedures: 07/23/22: [facility] INSTRUCTIONAL DESIGN TECHNOLOGIST-D implant History of Presentation: 71 y.o. female with a history of HFrEF, LBBB, QRS >150, NYHA II who is POD#1 of INSTRUCTIONAL DESIGN TECHNOLOGIST-D implant ([employer]). Hospital Course: Elective admission for INSTRUCTIONAL DESIGN TECHNOLOGIST-D implant Admitted post-implant for pain management, telemetry [...] (heart failure with reduced ejection fraction) [I50.20] INSTRUCTIONAL DESIGN TECHNOLOGIST-D implant Admission Condition: good Indication for Admission: [...] g Refills: 3 fluticasone propionate 50 mcg/actuation [place], Suspension Commonly known as: Flonase 1 spray [...] incision. Make sure to use a clothes marker (such as a towel) in between the [...] F. The office scheduling phone number is [phone]. ARM MOVEMENT RESTRICTIONS POST-IMPLANT - Do not [...] please call the Cardiac ElectrophysiologyTriage Nurse at [phone], option 3. General Instructions None Discharge References/Attachments [...] incision. Make sure to use a clothes marker (such as a towel) in between the [...] F. The office scheduling phone number is [phone]. ARM MOVEMENT RESTRICTIONS POST-IMPLANT - Do not [...] please call the Cardiac ElectrophysiologyTriage Nurse at [phone], option 3. documented in this encounter Medications [...] with spacer fluticasone propionate (Flonase) 50 mcg/actuation [place], Suspension 1 spray by Each Nare route [...] Cardiac Electrophysiology Post-Implant Device Interrogation Luna Mott [id number] 07/24/2022 History: Luna Mott is a 71 y.o. female with a history of HFrEF, LBBB, QRS >150, NYHA II who is POD#1 of INSTRUCTIONAL DESIGN TECHNOLOGIST-D implant ([employer]). Overall feels well this morning. Ready [...] WOB Neuro- A&Ox3 Device Interrogation: Data ?? Lamination Machine Operator Model # Serial # Generator [employer] [id number] Atrial Lead [employer] [id number] RV Lead [employer] 0672 [id number] LV Lead [employer] [id number] ?? Diagnostics Pacing Mode: DDD 60-130 Underlying Rhythm: [place] Atrial Episodes: None Ventricular Episodes: None FINAL PROGRAMMING: Pacing: Mode Lower rate (ppm) Upper rate (ppm) ?? DDD 60 130 VF: Rate (bpm) #Antitachycardia pacing First shock energy (J) ?? 200 Quick convert 41 VT: 170 Monitor only Monitor only ? Battery and Leads Impedances (ohms) Sensing (mV) Thresholds HV RA RV LV RA RV LV RA RV LV 73 [phone] (LVa) 7.7 13.1 >25 0.4V @ 0.4 ms 0.4V @ 0.4 ms 0.5 V @ 1.0 ms POD#1 CXR: All leads in nominal positioning Impression: 71 y.o. female who is s/p INSTRUCTIONAL DESIGN TECHNOLOGIST-D implant for LBBB, NYHA II, HFrEF. - [...] [facility]) Fadi Nunez MD 07/24/2022 Pager: [phone] I met with the patient today and [...] agreement. ? Dr. Lalit Mcmahon, electrophysiology attending ([id number]) * Zaria Wright RN - 07/23/2022 8:28 [...] HF, QRS > 150 ms presents for INSTRUCTIONAL DESIGN TECHNOLOGIST-D placement. ROS: Denies recent fevers or chills [...] 0.9) flush 5 mL 5 mL Intravenous [id number] ramos MD ??? sodium chloride 0.9 % [...] HF, QRS > 150 ms presents for INSTRUCTIONAL DESIGN TECHNOLOGIST-D placement. Backup would be LBBAP lead. Antibiotics: cefazolin Rationales for, intended benefits and potential risk of planned procedures reviewed. The patient indicated understanding and agreement with the plan. Informed consent signed. Procedure checklist completed. Fadi Nunez MD Cardiac Electrophysiology Fellow [facility] Pager [phone] 07/23/2022 I met with the patient today [...] agreement. ? Dr. Lalit Mcmahon, electrophysiology attending ([id number]) documented in this encounter Miscellaneous Notes * Brief Op Note - Lalit Mcmahon MD - 07/23/2022 4:04 PM EDT Brief Operative Note Patient Name: Luna Mott : [id number] MR#: [id number] Case Date: 07/23/2022 Surgeon: Surgeon(s) and Role: [...] AM EST Hospital Encounter [place] [address] Arrived Scheduled Orders Name Type Priority Associated Diagnoses Orde r Schedule EKG 12 Lead ECG Routine Cardiac resynchronization therapy defibrillator (INSTRUCTIONAL DESIGN TECHNOLOGIST-D) in place One Time for 1 Occurrences [...] (Bezet) 522 ms MUSE SYSTEM Calculated R Aledo 78 degrees MUSE SYSTEM Calculated T [place] -71 degrees MUSE SYSTEM INTERPRETATION AV dual-paced [...] who have questions please contact the health cattle care worker that requested your imaging first. ? [...] patients who have questions please contactthe health cattle care worker that requested your imaging first. Lalit Mcmahon MD IMG DX ORDERABLES * ELECTROPHYSIOLOGY PROCEDURE (07/23/2022 1:11 PM EDT) Anatomical Region Laterality Modality Other Narrative 07/23/2022 4:24 PM EDT Table formatting from the original result was not included. BIVENTRICULAR ICD IMPLANTATION Recording Studio Setup Worker: Lalit Mcmahon MD Fellow: Fadi Nunez MD [...] lateral branch of the CS in the HONDURAN view. This branch was cannulated with a [...] the entire procedure. LEAD AND GENERATOR DATA: Lamination Machine Operator Model # Serial # Generator [employer] [id number] Atrial Lead [employer] [id number] [id number] RV Lead [employer] 0672 398392 LV Lead [employer] 4674 [id number] PACE/SENSE DATA: Sensed wave (mV) Threshold (V) [...] (cGycm2) 300 CONCLUSIONS: Successful implantation of a [employer] biventricular ICD for primary prevention and treatment of symptoms related to congestive heart failure. Follow up in EP clinic in 1-2 months. Procedures performed: new ICD system ( cpt 92723-G2); implant LV lead at time of ICD insertion (cpt 17118) I have read, edited and approve of this report: Lalit Mcmahon MD [facility] Cardiac Electrophysiology 07/23/2022 4:22 PM Procedure Note Lalit Mcmaohn MD - 07/23/2022 BIVENTRICULAR ICD IMPLANTATION Recording Studio Setup Worker: Lalit Mcmahon MD Fellow: Fadi Nunez MD [...] appropriate lateralbranch of the CS in the HONDURAN view. This branch was cannulated with a [...] in the entireprocedure. LEAD AND GENERATOR DATA: Lamination Machine Operator Model # Serial # Generator [employer] [id number] Atrial Lead [employer] 7841 [id number] RV Lead [employer] 0672 [id number] LV Lead [employer] 4674 907035 PACE/SENSE DATA: Sensed wave (mV) Threshold (V) [...] (cGycm2) 300 CONCLUSIONS: Successful implantation of a [employer] biventricular ICD forprimary prevention and treatment of symptoms related to congestive heartfailure. Follow up in EP clinic in 1-2 months. Procedures performed: new ICD system ( cpt 63892-C9); implant LV lead attime of ICD insertion (cpt 66104) I have read, edited and approve of this report: Lalit Mcmahon MD S Cardiac Electrophysiology 07/23/2022 4:22 PM Lalit Mcmahon MD EP PROCEDURE ORDERAB LES * POCT Glucose (07/23/2022 12:54 PM EDT) [facility] Signature Glucose, POC 83 65 - 199 mg/dL [facility] Comment: Supplemental ranges: <140 mg/dL before meals <180 mg/dL all other times of the day Blood 07/23/2022 12:5 4 PM EDT 07/23/2022 12:54 PM EDT Lalit Mcmahon MD POINT OF CARE TEST O RDERABLES Performing Organization Address City/[facility]/ZIP Co de Phone Number [facility] [place] [address] * EKG 12 Lead (07/23/2022 12:33 PM EDT) Ventricular rate 72 BPM MUSE SYSTEM Atrial Rate 72 BPM MUSE SYSTEM P-R Interval 158 ms MUSE SYSTEM QRS Duration 176 ms MUSE SYSTEM Q-T Interval 458 ms MUSE SYSTEM QTC Calculated (Bezet) 501 ms MUSE SYSTEM Calculated P [place] 34 degrees MUSE SYSTEM Calculated R [place] 12 degrees MUSE SYSTEM Calculated T Aledo -173 degrees MUSE SYSTEM INTERPRETATION Normal sinus rhythm Left bundle branch block Abnormal ECG No previous ECGs available Confirmed by MD Salome, Lalit ([id number]) on 07/23/2022 1:19:03 PM MUSE SYSTEM 07/23/2022 12:3 3 PM EDT 07/23/2022 1:19 PM EDT Lalit Mcmahon MD ECG ORDERABLES Performing Organization Address [facility]/ZIP Co de Phone Number MUSE SYSTEM * Differential, Automated (07/23/2022 11:55 AM EDT) Neutrophil % 62.6 % [facility] Neutrophil Absolute 4.14 1.70 - 6.10 x10(3)/[facility] Lymph % 27.0 % [facility] Lymphocytes Abs 1.8 0.9 - 3.2 x10(3)/[facility] Monocyte % 7.3 % [facility] Monocyte Abs 0.5 0.3 - 0.9 x10(3)/[facility] Eos % 2.3 % [facility] Eosinophils Abs 0.2 0.0 - 0.4 x10(3)/[facility]OR[facility] Basophil % 0.6 % [facility] IT[facility] LAB[facility]AT[facility] Baso Absolute 0.0 0.0 - 0.1 x10(3)/[facility]ORAT[facility] Immature Gran % 0.20 % [facility] Comment: Immature granulocytes(IG's)percentage and absolute count will include metamyelocytes, myelocytes, and promyelocytes. Blood smears from CBCs yielding IG's will be scanned manually for concordance. If this scan disagrees with the automated IG or if promyelocytes are noted, a manual differential will be performed. Immature Gran Absolute 0.01 0.00 - 0.04 x10(3)/[facility] Blood 07/23/2022 11:5 5 AM EDT 07/23/2022 12:07 PM EDT Narrative Resulting Agency Comment Spec In Lab Lalit Mcmahon MD HEMATOLOGY ORDERABLE S [facility] [place] [address] * Hemogram (07/23/2022 11:55 AM EDT) White Blood Cell 6.6 4.0 - 9.5 x10(3)/[facility] Red Blood Cell 4.50 4.00 - 5.21 x10(6)/[facility] Hemoglobin 13.7 11.7 - 15.5 [...] [place] [facility] Platelet 193 145 - 357 x10(3)/[facility] RDW Standard Deviation 45.5 37.0 - 46.0 fL [facility] RDW coefficient of variation 13.2 11.5 - 14.1 % [facility] Mean Platelet Volume 9.5 7.6 - 12.9 fL [facility] NRBC% auto 0.0 % [facility] ITAL LABORATORY NRBC Absolute 0.000 0.000 - 0.000 x10(3)/[facility] Blood 07/23/2022 11:5 5 AM EDT 07/23/2022 12:07 PM EDT Narrative Resulting Agency Comment Spec In Lab Lalit Mcmahon MD HEMATOLOGY ORDERABLE S [facility] [address] * (ABNORMAL) BMP w/fasting Glucose (07/23/2022 11:55 [...] of Diabetes Mellitus, Position Statement from the [place] [employer]. ??Diabetes Care, Volume 33, Supplement 1, Mar 2009 Blood Urea Nitrogen 23(H) 8 - 18 mg/dL [facility] Creatinine 1.07 0.70 - 1.20 mg/dL [facility] Sodium 141 135 - 145 [...] 106 98 - 107 mmol/L [facility] Carbon Dioxide 26 22 - 31 mmol/L [facility] Anion Gap 9 5 - 15 mmol/L [facility] Calcium 9.7 8.5 - 10.5 mg/dL [facility] Est Glomerular Filtration Rate 55(L) >=60 mL/min/1. 73 m?? [facility] Comment: This patient's estimated GFR [...] Mcmahon MD CHEMISTRY ORDERABLES Performing Organization Address [facility] Co de Phone Number [facility] [place] [address] * Prothrombin Time (07/23/2022 11:55 AM EDT) [...] MD HEMATOLOGY ORDERABLE S Performing Organization Address City/[facility] Co de Phone Number [facility] [place] [address] documented in this encounter Visit Diagnoses Diagnosis HFrEF (heart failure with reduced ejection fraction)- Primary Left bundle branch block Other left bundle branch block Nonischemic cardiomyopathy Other primary cardiomyopathies Cardiac resynchronization therapy defibrillator (INSTRUCTIONAL DESIGN TECHNOLOGIST-D) in place Left bundle branch block Other [...] Routine documented in this encounter Care Teams Early Childhood Teacher Assistant Relationship Specialty Start Date End Date Lolly Oliveira MD [address] [place] [address] PCP - General 07/17/13 documented as of this encounter
--- OUTSIDE RECORDS SUMMARY | 2023-12-22 10:59 | XMS_ITS | Clinical Summary ---
Author Organization Formerly [facility] [address] Care Team Providers Care Pad Machine Operator Name Role Phone Lolly Oliveira MD Primary Care Provider [phone] Allergies Active Allergy Reactions Criticality Noted Date [...] spacer Active fluticasone propionate (Flonase) 50 mcg/actuation [place], Suspension 1 spray by Each Nare [...] PM EDT Hospital Encounter [place] [address] Discharge Disposition: Home from Last [...] AM EST Hospital Encounter [place] [address] Arrived Health Maintenance Due Date Last Done [...] series) 11/07/2023 Medical Devices Implanted Type Area Fender Repairer Device Identifier Shelf Expiration Date Model / Serial / Lot Bsx: [id number]: [id number]/18/2 023 Implanted: by Lalit Mcmahon MD (Quantity not on file) Defibrillator Chest Wall [employer] [id number] / [id number] / Bsx: [id number]: [id number]/18/2 023 Implanted: by Lalit Mcmahon MD (Quantity not on file) Lead Heart [employer] [id number] / [id number] / Bsx: [id number]: [id number] Implanted: by Lalit Mcmahon MD (Quantity not on file) Lead Heart [employer] 7841 / [id number] / Bsx: [id number]: [id number]/18/2 023 Implanted: by Lalit Mcmahon MD (Quantity not on file) Lead Heart [employer] 0672 / [id number] / Procedures Procedure Name Priority Date/Time Associated [...] Status decision made by: Patient Care Teams Pad Machine Operator Relationship Specialty Start Date End Date Lolly Oliveira MD [address] [place] [address] PCP - General 07/17/13
--- OUTSIDE RECORDS SUMMARY | 2023-12-22 10:59 | XMS_ITS | Encounter Summary ---
Author Organization [facility] Address [address] [place] [address] Care Team Providers Care Railway Signal Technician Name Role Phone Lolly Oliveira MD Primary Care Provider [phone] Encounter Details Date Type Department Care Team (Late st Contact Info) Description 04/12/[address] [facility] conversion [address] [place] [address] Lolly Oliveira MD [address] [place], [place] [id number] Social History Tobacco Use Types Packs/Day Years [...] ? JING ALVARENGA ? Accession #: ? [id number] : ? 1950 (Age: 56) ??F ?Collect Date: ? 04/12/2007 Location: ? [facility] ? Receive Date: ? 04/13/2007 Provider: ?LOLLY OLIVEIRA MD Copy to: ? Specimen/Source: ?ThinPrep Pap Test, Cervix/Endocervix, processed on [employer] ThinPrep Imaging System, with manual evaluation Last [...] Oliveira MD PATHOLOGY ORDERABLES [facility] [address] [place] [address] documented in this encounter Visit Diagnoses Not on filedocumented in this encounter Care Teams Railway Signal Technician Relationship Specialty Start Date End Date Lolly Oliveira MD [address] [place] [address] PCP - General 11/13/08 documented as of this encounter
--- OUTSIDE RECORDS SUMMARY | 2023-12-22 10:59 | XMS_ITS | Encounter Summary ---
Author Organization [facility] [place] [address] Care Team Providers Care Steaming Cabinet Tender Name Role Phone Lolly Oliveira MD Primary Care Provider [phone] Encounter Details Date Type Department Care Team (Late st Contact Info) Description 11/16/2022 Telephone Cardiology at [address] [phone] Luna Rousseau, RN Social History Tobacco Use Types Packs/Day Years Used Date Smoking Tobacco: Never Alcohol Use Standard Drinks/Week Comments Not Currently 0 (1 standard drink = 0.6 oz pur e alcohol) [facility] Inpatient Questions Answer Date Recorded Does Anyone [...] BP today was 118/57 at CR at [facility]. Pt is going twice [...] [facility] Hospital Encounter Non-Invasive [place] [address] Arrived documented as of this encounter Visit Diagnoses Not on filedocumented in this encounter Care Teams Steaming Cabinet Tender Relationship Specialty Start Date End Date Lolly Oliveira MD [address] [place] [address] PCP - General 07/17/13 documented as of this encounter
--- OUTSIDE RECORDS SUMMARY | 2023-12-22 10:59 | XMS_ITS | Encounter Summary ---
Author Organization [facility] Address [facility] [address] Care Team Providers Care Foundation Relations Manager Name Role Phone Lolly Oliveira MD Primary Care Provider [phone] Encounter Details Date Type Department Care Team (Late st Contact Info) Description 11/11/2022 Orders Only Cardiology at [address] [phone] Lalit Mcmahon MD [facility] [address] Nonischemic cardiomyopathy Social History Tobacco Use Types Packs/Day Years Used Date Smoking Tobacco: Never Alcohol Use Standard Drinks/Week Comments Not Currently 0 (1 standard drink = 0.6 oz pur e alcohol) [facility] Inpatient Questions Answer Date Recorded Does Anyone [...] [facility] Hospital Encounter Non-Invasive [place] [address] Arrived documented as of this encounter Visit Diagnoses Diagnosis Nonischemic cardiomyopathy Other primary cardiomyopathies documented in this encounter Care Teams Foundation Relations Manager Relationship Specialty Start Date End Date Berrian, Lolly M, MD [address] [place] [address] PCP - General 07/17/13 documented as of this encounter
--- OUTSIDE RECORDS SUMMARY | 2023-12-22 10:59 | XMS_ITS | Encounter Summary ---
Author Organization [facility] Address [address] [place] [address] Care Team Providers Care Implant Coordinator Name Role Phone Lolly Oliveira MD Primary Care Provider [phone] Encounter Details Date Type Department Care Team (Late st Contact Info) Description 03/21/2019 Lab Requisition [facility] Pathology & Laboratory Medicine - [address] [address] Unknown, Provider, Social History Tobacco Use Types [...] 211 - 911 pg/mL 03/22/2019 11:52 EST [facility] Blood VENOUS BLOOD / Unknown 03/16/2019 9:25 EST 03/21/2019 21:35 EST Provider Unknown CHEMISTRY & BLOOD GA S ORDERABLES [facility] [address] [place] [address] documented in this encounter Visit Diagnoses Not on filedocumented in this encounter Care Teams Implant Coordinator Relationship Specialty Start Date End Date Lolly Oliveira MD [address] [place] [address] PCP - General 11/13/08 documented as of this encounter
--- OUTSIDE RECORDS SUMMARY | 2023-12-22 10:59 | XMS_ITS | Encounter Summary ---
Author Organization [facility] [place] [address] Care Team Providers Care Positive Printer Operator Name Role Phone Lolly Oliveira MD Primary Care Provider [phone] Encounter Details Date Type Department Care Team (Late st Contact Info) Description 03/15/2023 Telephone Cardiology at [address] [phone] Saranya Ma Social History Tobacco Use Types Packs/Day Years Used Date Smoking Tobacco: Never Alcohol Use Standard Drinks/Week Comments Not Currently 0 (1 standard drink = 0.6 oz pur e alcohol) [facility] Inpatient Questions Answer Date Recorded [...] [facility] prior to her appt withinm there on 05/12/23. Message sent to Dr. Mcmahon asking him to put order in if he would like her to have this done. Saranya Ma Sr. Clinical Procedure [place]/Padding Gluer documented in this encounter Plan of Treatment Upcoming Encounters Date Type Department Care Team (Late st Contact Info) Description 01/16/2024 10:00 AM EST Hospital Encounter Non-Invasive [place] [address] Arrived documented as of this encounter Visit Diagnoses Not on filedocumented in this encounter Care Teams Positive Printer Operator Relationship Specialty Start Date End Date Lolly Oliveira MD [address] [place] [address] PCP - General 07/17/13 documented as of this encounter
--- OUTSIDE RECORDS SUMMARY | 2023-12-22 10:59 | XMS_ITS | Encounter Summary ---
Author Organization [facility] Address [address] [place] [address] Care Team Providers Care Floatlight Powder Mixer Name Role Phone Lolly Oliveira MD Primary Care Provider [phone] Encounter Details Date Type Department Care Team (Late st Contact Info) Description 02/11/2021 Lab Requisition [facility] Pathology & Laboratory Medicine - [address] [address] Outr Resulting Lab, Provider Social History Tobacco [...] Resulting Lab MICROBIOLOGY - GENERAL ORDERABLES [facility] [address] [place] [address] * COVID-19 TESTING (02/11/2021 8:00 EST) COVID-19 rt-PCR Result Negative Negative 02/12/2021 14:17 EST [facility] Comment: This test [...] was performed using the med SARS-CoV-2 assay ([employer] on the Med 6800 System Performing Lab Med [address] [facility] Lab 02/12/2021 14:17 EST [facility] Swab 02/11/2021 8:00 EST 02/11/2021 22:22 EST Provider Outr Resulting Lab MICROBIOLOGY - GENERAL ORDERABLES [facility] [address] [place] [address] documented in this encounter Visit Diagnoses Not on filedocumented in this encounter Care Teams Floatlight Powder Mixer Relationship Specialty Start Date End Date Lolly Oliveira MD [address] [place] [address] PCP - General 11/13/08 documented as of this encounter
--- OUTSIDE RECORDS SUMMARY | 2023-12-22 10:59 | XMS_ITS | Encounter Summary ---
[facility] [place] [address] Care Team Providers Care Clerical Investigator Name Role Phone Lolly Oliveira MD Primary Care Provider [phone] Encounter Details Date Type Department Care Team (Late st Contact Info) Description 01/29/2023 Notes Only Cardiology at [address] [address] Merle Lin PA [facility] [address] Social History Tobacco Use Types Packs/Day Years [...] pdf document Date of transmission: 01/29/2023 Device mathematics education professor: BSI Device type: ORE PUNCHER-D Presenting rhythm: /RVP/LVP AP 21% Right MILL TURNER 100% Left MILL TURNER: 100% Battery: 10.5 years HeartLogic Index rising in setting of increasing S3 intensity, increasing respiratory rate, increasing night heart rate, and increasing mean heart rate. MICKEY Villa 01/29/2023 9:06 AM documented in this encounter Plan of Treatment Upcoming Encounters Date Type Department Care Team (Late st Contact Info) Description 01/16/2024 10:00 AM EST Hospital Encounter Non-[place] [address] Arrived documented as of this encounter Visit Diagnoses Not on filedocumented in this encounter Care Teams Clerical Investigator Relationship Specialty Start Date End Date Lolly Oliveira MD [address] [place] [address] PCP - General 07/17/13 documented as of this encounter
--- OUTSIDE RECORDS SUMMARY | 2023-12-22 10:59 | XMS_ITS | Encounter Summary ---
Author Organization [facility] [place] [address] Care Team Providers Care Product Development Assistant Name Role Phone Lolly Oliveira MD Primary Care Provider [phone] Encounter Details Date Type Department Care Team (Late st Contact Info) Description 05/18/2023 Refill Dermatology at [address] [address] Nora Meredith LPN Social History [...] patient. She voiced understanding. Order sent to [facility] drug. documented in this encounter Plan of Treatment Upcoming Encounters Date Type Department Care Team (Late st Contact Info) Description 01/16/2024 10:00 AM EST Hospital Encounter [place] [address] Arrived documented as of this encounter Visit Diagnoses Not on filedocumented in this encounter Care Teams Product Development Assistant Relationship Specialty Start Date End Date Lolly Oliveira MD [address] [place] [address] PCP - General 07/17/13 documented as of this encounter
--- OUTSIDE RECORDS SUMMARY | 2023-12-22 10:59 | XMS_ITS | Encounter Summary ---
Author Organization [facility] [place] [address] Care Team Providers Care Record Label Intern Name Role Phone Lolly Oliveira MD Primary Care Provider Encounter Details Date Type Department Care Team (Late st Contact Info) Description 05/18/2023 Telephone Dermatology at [address] [address] Nora Meredith LPN Social History [...] [facility] Hospital Encounter Non-Invasive [place] [address] Arrived documented as of this encounter Visit Diagnoses Not on filedocumented in this encounter Care Teams Record Label Intern Relationship Specialty Start Date End Date Lolly Oliveira MD [address] [place] [address] PCP - General 07/17/13 documented as of this encounter
--- OUTSIDE RECORDS SUMMARY | 2023-12-22 10:59 | XMS_ITS | Encounter Summary ---
Author Organization [facility] [place] [address] Care Team Providers Care Shovel Mechanic Name Role Phone Lolly Oliveira MD Primary Care Provider [phone] Reason for Visit * Reason Onset Date Comments Post Procedure Call 07/30/2022 Encounter Details Date Type Department Care Team (Late st Contact Info) Description 07/30/2022 Notes Only Cardiology at [address] [phone] Rosenda Sutton, RN Post Procedure Call Social [...] 07/30/2022 9:59 AM EDTSummary: Post Procedure Call: SURGICAL RN implant EP RN Post-Procedure Note: Date of Follow Up Call: 07/30/2022 Spoke With: Patient Procedure Type (choose all that apply): ICD Performing MIRLANDE Mcmahon Date of Procedure: 07/23/2022 Date of Discharge: 07/24/2022 Follow Up EP Visit Scheduled?: No No Follow Up Visit Reason: Follow up outside Outside Location: [facility] Date of Non EP Visit: 08/12/2022 [...] Note: Follow-up Recommendations for Providers: - s/p SURGICAL RN-D implant - post implant QRS 130 ms - reviewed post-implant instructions - no medication changes - Follow up in device clinic for wound/device check in ~10 days??([facility]) Wound Care: -Wound will heal [...] [facility] Hospital Encounter [place] [address] Arrived documented as of this encounter Visit Diagnoses Not on filedocumented in this encounter Care Teams Shovel Mechanic Relationship Specialty Start Date End Date Lolly Oliveira MD [address] [place] [address] PCP - General 07/17/13 documented as of this encounter
--- OUTSIDE RECORDS SUMMARY | 2023-12-22 10:59 | XMS_ITS | Encounter Summary ---
[place] [address] Care Team Providers Care Amusement Ride Inspector Name Role Phone Lolly Oliveira MD Primary Care Provider [phone] Encounter Details Date Type Department Care Team [...] AM EST Hospital Encounter Non-[place] [address] Arrived documented as of this encounter Visit Diagnoses Not on filedocumented in this encounter Care Teams Amusement Ride Inspector Relationship Specialty Start Date End Date Lolly Oliveira MD [address] [place] [address] PCP - General 07/17/13 documented as of this encounter
--- OUTSIDE RECORDS SUMMARY | 2023-12-22 11:00 | XMS_ITS | Encounter Summary ---
[place] [address] Care Team Providers Care Hadoop Java Developer Name Role Phone Lolly Oliveira MD Primary Care Provider [phone] Encounter Details Date Type Department Care Team (Latest Contact Info) Description 07/26/2013 9:45 AM EDT - 07/26/2013 11:59 PM EDT Hospital [place] [address] Mammographic microcalcification Social History Tobacco Use Types [...] AM EST Hospital Encounter Non[place] [address] Arrived documented as of this encounter Procedures Procedure Name Priority Date/Time Associated Diagnosis Comments SURGICAL PATHOLOGY REPORT Routine 07/26/2013 12:12 PM EDT MAMMO SPECIMEN IMAGING DURING BIOPSY Routine 07/26/2013 11:58 AM EDT Mammographic microcalcification documented in this encounter Results * Surgical Pathology Report (07/26/2013 12:12 PM EDT) Final Diagnosis ? [facility] ? Provider: ?? ELENO CHRISTIAN ?? Pt. Name: ?? JING ALVARENGA ? Acc #: ?[id number] ?Pt. ? Col Date: ?? 07/26/2013 ? [...] Partially fragmented, fibrofatty needle core biopsies. ? [facility] ? Provider: ?? ELENO CHRISTIAN ?? Pt. Name: ?? JING ALVARENGA ? Acc #: ?[id number] ?Pt. ? Col Date: ?? 07/26/2013 ? [...] FCD, adenosis, DCIS 07/28/2013 8:29 AM EDT [facility] BREAST STRUCTURE / Unknown 07/26/2013 12:12 PM EDT 07/26/2013 12:12 PM EDT Eleno Christian MD PATHOLOGY/CYTOLOGY O RDERABLES Performing Organization Address City/State/[facility] [place] Phone Number [facility] [place] [address] * Mammo Specimen Imaging During Biopsy (07/26/2013 [...] microcalcification documented in this encounter Care Teams Hadoop Java Developer Relationship Specialty Start Date End Date Lolly Oliveira MD [address] [place] [address] PCP - General 07/17/13 documented as of this encounter
--- OUTSIDE RECORDS SUMMARY | 2023-12-22 11:00 | XMS_ITS | Encounter Summary ---
Author Organization [facility] [place] [address] Care Team Providers Care Brineyard Supervisor Name Role Phone Lolly Oliveira MD Primary Care Provider [phone] Reason for Referral * Diagnostic Test (Routine) - Closed Specialty Diagnoses / Procedures Referred By Contac t Referred To Contact Radiology Diagnoses Left bundle branch block Nonischemic cardiomyopathy Procedures MRI Cardiac Morphology Function With Flow Velocity Quantification [facility] Contrast MRI Cardiac Morphology Function wwo Contrast Lalit Mcmahon MD [facility] [place] [address] [place] [address] Referral ID Status Reason Start Date Expiration Date V isits Requested Visits Authorized [id number] Closed Specialty Service Requested 05/06/2022 11/07/2023 2 1 Reason for Visit * Diagnostic Test (Routine) - Closed Specialty Diagnoses / Procedures Referred By Contac t Referred To Contact Radiology Diagnoses Left bundle branch block Nonischemic cardiomyopathy Procedures MRI Cardiac Morphology Function With Flow Velocity Quantification o Contrast MRI Cardiac Morphology Function wwo Contrast Lalit Mcmahon MD [facility] [place] [address] [place] [address] Referral ID Status Reason Start Date Expiration Date V isits Requested Visits Authorized [id number] Closed Specialty Service Requested 05/06/2022 11/07/2023 2 1 Encounter Details Date Type Department Care Team (Latest Contact Info) Description 07/14/2022 9:08 AM EDT Hospital Encounter MRI at [facility] [place] [phone] Lalit Mcmahon MD [facility] [address] [place] [address] Left bundle branch block; Nonischemic cardiomyopathy Discharge [...] with spacer fluticasone propionate (Flonase) 50 mcg/actuation [employer], Suspension 1 spray by [...] 1950 [address] [facility] [address] Female [phone] (home) No relevant phone numbers on file. Lolly Oliveira MD None Allergies Allergen Reactions ??? Sulfa (Sulfonamide Antibiotics) Date/Time of call: July 07, 2022/11:03 AM/ PREVIOUS MRI SCAN? HEIGHT: WEIGHT: SCHEDULED SCAN: MRI CARDIAC MORPHOLOGY FUNCTION WITH FLOW VELOCITY QUANTIFICATION WWO CONTRAST [[id number]] Order Questions Answers Where will study be performed? [facility] Radiology [120] SUBJECTIVE: Very Claustrophobic [...] ( [place] ) You must have a locomotive driver present when you check in. This patient has been informed that they require a locomotive driver to drive them home after this procedure. In the absence of a locomotive driver, IR will not be able to sedate for your scan. Pt verbalized understanding of these instructions during the pre-procedure education via phone. Yes Name of locomotive driver: Daughter Phone number: PRIOR SCAN DATE/S SEDATION TYPE SUCCESSFUL 07/14/22 MRI Cardiac Morphology Function with Flow Velocity Quantification wwo Contrast Ativan 1mg x 1 dose Pass Revised 08/03/17 documented in this encounter Plan of Treatment Upcoming Encounters Date Type Department Care Team (Late st Contact Info) Description 01/16/2024 10:00 AM [facility] Hospital Encounter Non[place] [address] Arrived documented as of this encounter Procedures [...] questions please contact the health patient care that requested your imaging first. ? Electronically signed by: Greyson Herron MD, [facility] ([phone]), at 07/15/2022 9:53 AM Narrative 07/15/2022 9:53 [...] have questions please contactthe health patient care that requested your imaging first. Lalit [...] mg documented in this encounter Care Teams Brineyard Supervisor Relationship Specialty Start Date End Date Lolly Oliveira MD [address] [place] [address] PCP - General 07/17/13 documented as of this encounter
--- OUTSIDE RECORDS SUMMARY | 2023-12-22 11:00 | XMS_ITS | Encounter Summary ---
Author Organization [facility] [place] [address] Care Team Providers Care Special Procedures Technologist Name Role Phone Lolly Oliveira MD Primary Care Provider [phone] Encounter Details Date Type Department Care Team (Late st Contact Info) Description 04/01/2021 3:30 PM EST Office Visit Dermatology at [address] [phone] Clay Ramírez MD [address], [place] [address] Psoriasis, guttate Social History Tobacco Use Types [...] EST Hospital Encounter Non-Invasive [place] [address] Arrived documented as of this encounter Visit Diagnoses Diagnosis Psoriasis, guttate Other psoriasis documented in this encounter Care Teams Special Procedures Technologist Relationship Specialty Start Date End Date Lolly Oliveira MD [address] [place] [address] PCP - General 07/17/13 documented as of this encounter
--- OUTSIDE RECORDS SUMMARY | 2023-12-22 11:00 | XMS_ITS | Encounter Summary ---
Author Organization [facility] [place] [address] Care Team Providers Care Psychiatric Mental Health Nurse Name Role Phone Lolly Oliveira MD Primary Care Provider [phone] Reason for Visit * Reason Comments Psoriasis Encounter Details Date Type Department Care Team (Late st Contact Info) Description 04/09/2022 1:45 PM EST Office Visit Dermatology at [address] [address] Clay Ramírez MD [address] [facility], [place] [address] Psoriasis, guttate Social History Tobacco Use Types [...] AM EST Hospital Encounter Non-[place] [address] Arrived documented as of this encounter Visit Diagnoses Diagnosis Psoriasis, guttate Other psoriasis documented in this encounter Care Teams Psychiatric Mental Health Nurse Relationship Specialty Start Date End Date Lolly Oliveira MD [address] [place] [address] PCP - General 07/17/13 documented as of this encounter
--- OUTSIDE RECORDS SUMMARY | 2023-12-22 11:00 | XMS_ITS | Encounter Summary ---
Author Organization [facility] [place] [address] Care Team Providers Care Power System Electrical Engineer Name Role Phone Lolly Oliveira MD Primary Care Provider [phone] Encounter Details Date Type Department Care Team (Late st Contact Info) Description 06/29/2011 [place] [address] Eleno Christian MD [facility] DIAGNOSTIC [place] [address] Social History Tobacco Use Types Packs/Day Years [...] AM EST Hospital Encounter Non-[place] [address] Arrived documented as of this encounter Procedures [...] is a Non-reportable exam Eleno Christian MD [facility] ORD ERABLES documented in this encounter Visit Diagnoses Not on filedocumented in this encounter Care Teams Power System Electrical Engineer Relationship Specialty Start Date End Date Lolly Oliveira MD [address] [place] [address] PCP - General 07/17/13 documented as of this encounter
--- OUTSIDE RECORDS SUMMARY | 2023-12-22 11:00 | XMS_ITS | Encounter Summary ---
Author Organization [facility] [place] [address] Care Team Providers Care Production Supervisor Off Shift Name Role Phone Lolly Oliveira MD Primary Care Provider [phone] Reason for Visit * Reason Comments Follow-up Encounter Details Date Type Department Care Team (Late st Contact Info) Description 06/06/2021 8:45 AM EDT Office Visit Dermatology at [address] [address] Clay Ramírez MD [address] [facility], [place] [address] Psoriasis, guttate Social History Tobacco Use Types [...] [facility] Hospital Encounter Non-In[place] [address] Arrived documented as of this encounter Visit Diagnoses Diagnosis Psoriasis, guttate Other psoriasis documented in this encounter Care Teams Production Supervisor Off Shift Relationship Specialty Start Date End Date Lolly Oliveira MD [address] [place] [address] PCP - General 07/17/13 documented as of this encounter
--- OUTSIDE RECORDS SUMMARY | 2023-12-22 11:00 | XMS_ITS | Encounter Summary ---
Author Organization [facility] [place] [address] Care Team Providers Care Substance Abuse Technician Name Role Phone Lolly Oliveira MD Primary Care Provider [phone] Reason for Visit * Reason Onset Date Comments Pre Procedure Call 07/01/2022 Encounter Details Date Type Department Care Team (Late st Contact Info) Description 07/01/2022 Telephone Cardiology at [address] [phone] Rosenda Sutton RN Pre Procedure Call Social History Tobacco Use Types Packs/Day Years Used Date Smoking Tobacco: Never Sex and Gender Information Value Date Recorded Sex Assigned at Not on file Gender Identity Not on file Sexual Orientation Not on file documented as of this encounter Miscellaneous Notes * Telephone Encounter - Rosenda Sutton RN - 07/01/2022 9:30 AM EDTSummary: Pre Procedure Call: GEAR MACHINE OPERATOR GENERAL implant EP SENIOR SEARCH MARKETING ANALYST COORDINATION CHECKLIST Patient Name: Luna Mott Patient Performing Set Decorator: Lalit Mcmahon Referring Provider: Lolly Oliveira Date of Procedure: 07/23/22 Arrival Time/ Case Time: 12:00 pm / 1:00 pm Check In Location: [facility] 4W Date Patient was Called: 07/01/22 Procedure: GEAR MACHINE OPERATOR GENERAL Company: [employer] Type: GEAR MACHINE OPERATOR GENERAL-D Laterality: LEFT Orders: Yes Lab Orders: Yes [...] overnight , understands that they will need racing driver on day of discharge Notified pt that Goff catheter may be placed on day of procedure depending on type & duration of case. documented in this encounter Plan of Treatment Upcoming Encounters Date Type Department Care Team (Late st Contact Info) Description 01/16/2024 10:00 AM [facility] Hospital Encounter Non-Invasive [place] [address] Arrived documented as of this encounter Visit Diagnoses Not on filedocumented in this encounter Care Teams Substance Abuse Technician Relationship Specialty Start Date End Date Lolly Oliveira MD [address] [place] [address] PCP - General 07/17/13 documented as of this encounter
--- OUTSIDE RECORDS SUMMARY | 2023-12-22 11:00 | XMS_ITS | Encounter Summary ---
Author Organization [facility] [place] [address] Care Team Providers Care Hand Buffer Name Role Phone Lolly Oliveira MD Primary Care Provider [phone] Reason for Visit * Reason Comments Follow-up Encounter Details Date Type Department Care Team (Late st Contact Info) Description 07/02/2022 8:00 AM EDT Office Visit Dermatology at [address] [phone] Clay Ramírez MD [address] [facility], [place] [address] Psoriasis, guttate Social History Tobacco Use Types [...] SERVICE UNIT Hospital Encounter Non-[place]vasive [place] [address] Arrived documented as of this encounter Visit Diagnoses Diagnosis Psoriasis, guttate Other psoriasis documented in this encounter Care Teams Hand Buffer Relationship Specialty Start Date End Date Lolly Oliveira MD [address] [place] [address] PCP - General 07/17/13 documented as of this encounter
--- OUTSIDE RECORDS SUMMARY | 2023-12-22 11:00 | XMS_ITS | Encounter Summary ---
Author Organization [facility] [place] [address] Care Team Providers Care Shell Maker Lockstitch Name Role Phone Lolly Oliveira MD Primary Care Provider [phone] Reason for Referral * Diagnostic Test (Routine) - Closed Specialty Diagnoses / Procedures Referred By Contac t Referred To Contact Radiology Diagnoses Left bundle branch block Nonischemic cardiomyopathy Procedures MRI Cardiac Morphology Function With Flow Velocity Quantification wwo Contrast MRI Cardiac Morphology Function wwo Contrast Lalit Mcmahon MD [facility] [place] [address] [place] [address] Referral ID Status Reason Start Date Expiration Date V isits Requested Visits Authorized [id number] Closed Specialty Service Requested 05/06/2022 11/07/2023 2 1 Encounter Details Date Type Department Care Team (Late st Contact Info) Description 05/06/2022 Orders Only Cardiology at [address] [phone] Lalit Mcmahon MD [facility] [place] [address] Left bundle branch block; Nonischemic cardiomyopathy Social [...] AM EST Hospital Encounter Non-[place] [address] Arrived documented as of this encounter Results [...] questions please contact the health patient care manager that requested your imaging first. ? Narrative [...] have questions please contactthe health patient care manager that requested your imaging first. Lalit Mcmahon MD IMG MRI ORDERABLES documented in this encounter Visit Diagnoses Diagnosis Left bundle branch block Other left bundle branch block Nonischemic cardiomyopathy Other primary cardiomyopathies Left bundle branch block Other left bundle branch block Nonischemic cardiomyopathy Other primary cardiomyopathies documented in this encounter Care Teams Shell Maker Lockstitch Relationship Specialty Start Date End Date Lolly Oliveira MD [address] [place] [address] PCP - General 07/17/13 documented as of this encounter
--- OUTSIDE RECORDS SUMMARY | 2023-12-22 11:00 | XMS_ITS | Encounter Summary ---
Author Organization [facility] [place] [address] Care Team Providers Care Plant Anatomist Name Role Phone Lolly Oliveira MD Primary Care Provider [phone] Encounter Details Date Type Department Care Team (Late Contact Info) Description 01/14/2022 Telephone Dermatology at [address] [address] Nora Meredith LPN Social History [...] EST Hospital Encounter Non-Invasive [place] [address] Arrived documented as of this encounter Visit Diagnoses Not on filedocumented in this encounter Care Teams Plant Anatomist Relationship Specialty Start Date End Date Lolly Oliveira MD [address] [place] [address] PCP - General 07/17/13 documented as of this encounter
--- OUTSIDE RECORDS SUMMARY | 2023-12-22 11:00 | XMS_ITS | Encounter Summary ---
[place] [address] Care Team Providers Care Concrete Pavement Installer Name Role Phone Lolly Oliveira MD Primary Care Provider [phone] Encounter Details Date Type Department Care Team [...] AM EST Hospital Encounter Non-[place] [address] Arrived documented as of this encounter Visit Diagnoses Not on filedocumented in this encounter Care Teams Concrete Pavement Installer Relationship Specialty Start Date End Date Lolly Oliveira MD [address] [place] [address] PCP - General 07/17/13 documented as of this encounter
--- OUTSIDE RECORDS SUMMARY | 2023-12-22 11:00 | XMS_ITS | Encounter Summary ---
Author Organization [place] [address] Care Team Providers Care Licensed Funeral Director And Embalmer Name Role Phone Unavailable Primary Care Provider Unavailabl e Encounter Details Date Type Department Care Team (Late st Contact Info) Description 07/14/2013 [place] [phone] Eleno Christian MD [facility] [place] [address] Social History Tobacco Use Types Packs/Day Years [...] AM EST Hospital Encounter Non-[place] [address] Arrived documented as of this encounter Visit Diagnoses Not on filedocumented in this encounter
--- OUTSIDE RECORDS SUMMARY | 2023-12-22 11:00 | XMS_ITS | Encounter Summary ---
Author Organization [facility] [place] [address] Care Team Providers Care Drying Room Supervisor Name Role Phone Lolly Oliveira MD Primary Care Provider [phone] Encounter Details Date Type Department Care Team (Latest Contact Info) Description 07/18/2013 [place] [phone] Alia Fraire MD [facility] [place] [address] Mammographic microcalcification (Primary Dx) Social History Tobacco [...] Hospital Encounter Non-[place] [address] Arrived documented as of this encounter Results [...] are present on specimen digital X-ray. A [employer] Eviva-Stereo 13 Cylinder marker clip was placed. [...] calcifications are present on specimendigital X-ray. A [employer] Eviva-Stereo 13 Cylinder marker clip was placed. [...] does not layer and, therefore, are not patient service representative of milk of calcium. Again, [...] does not layer and, therefore, are not patient service representative of milk of calcium. Again, these have an amorphous andpunctate appearance and remain indeterminate. Stereotactic guided biopsy isrecommended. Alia Fraire MD IMG MAMMO ORDERABLES documented in this encounter Visit Diagnoses Diagnosis Mammographic microcalcification- Primary Mammographic microcalcification Mammographic microcalcification Mammographic microcalcification Mammographic microcalcification documented in this encounter Care Teams Drying Room Supervisor Relationship Specialty Start Date End Date Lolly Oliveira MD [address] [place] [address] PCP - General 07/17/13 documented as of this encounter
--- OUTSIDE RECORDS SUMMARY | 2023-12-22 11:00 | XMS_ITS | Encounter Summary ---
Author Organization [facility] [place] [address] Care Team Providers Care Ironing Worker Name Role Phone Lolly Oliveira MD Primary Care Provider [phone] Encounter Details Date Type Department Care Team (Latest Contact Info) Description 07/17/2013 8:40 AM EDT - 07/17/2013 11:59 PM EDT Hospital Encounter XRay at [address] [place] [phone] CLIN[address], [facility] Discharge Disposition: Home Social [...] Encounter Non-Invasive [place] [address] Arrived documented as of this encounter Visit Diagnoses Not on filedocumented in this encounter Care Teams Ironing Worker Relationship Specialty Start Date End Date Lolly Oliveira MD [address] [place] [address] PCP - General 07/17/13 documented as of this encounter
--- OUTSIDE RECORDS SUMMARY | 2023-12-22 11:00 | XMS_ITS | Encounter Summary ---
[place] [address] Care Team Providers Care Professional Engineer Name Role Phone Lolly Oliveira MD Primary Care Provider [phone] Encounter Details Date Type Department Care Team (Late st Contact Info) Description 04/09/2022 Refill Dermatology at [address] [address] Nora Meredith, QUALITY CONTROL CHECKER Social History Tobacco Use Types Packs/Day Years [...] [facility] Hospital Encounter Non-Invasive [place] [address] Arrived documented as of this encounter Visit Diagnoses Not on filedocumented in this encounter Care Teams Professional Engineer Relationship Specialty Start Date End Date Lolly Oliveira MD [address] [place] [address] PCP - General 07/17/13 documented as of this encounter
--- OUTSIDE RECORDS SUMMARY | 2023-12-22 11:00 | XMS_ITS | Encounter Summary ---
Author Organization [facility] [place] [address] Care Team Providers Care Tugboat Pilot Name Role Phone Lolly Oliveira MD Primary Care Provider [phone] Reason for Visit * Reason Comments Follow-up Encounter Details Date Type Department Care Team (Late st Contact Info) Description 05/21/2022 8:00 AM EDT Office Visit Dermatology at [address] [phone] Clay Ramírez MD [address] [facility], [place] [address] Psoriasis, guttate Social History Tobacco Use Types [...] [place] [facility] Encounter [place] [address] Arrived documented as of this encounter Visit Diagnoses Diagnosis Psoriasis, guttate Other psoriasis documented in this encounter Care Teams Tugboat Pilot Relationship Specialty Start Date End Date Lolly Oliveira MD [address] [place] [address] PCP - General 07/17/13 documented as of this encounter
--- OUTSIDE RECORDS SUMMARY | 2023-12-22 11:00 | XMS_ITS | Encounter Summary ---
Author Organization [facility] [place] [address] Care Team Providers Care Eradicator Name Role Phone Unavailable Primary Care Provider Unavailabl e Encounter Details Date Type Department Care Team (Late st Contact Info) Description 07/04/2012 [place] [phone] Eleno Christian MD [facility] DIAGNOSTIC [place] [address] Social History Tobacco Use Types Packs/Day Years [...] AM EST Hospital Encounter Non-[place] [address] Arrived documented as of this encounter Procedures [...]
--- OUTSIDE RECORDS SUMMARY | 2023-12-22 11:00 | XMS_ITS | Encounter Summary ---
Author Organization [facility] [place] [address] Care Team Providers Care Real Time Operator Name Role Phone Lolly Oliveira MD Primary Care Provider [phone] Encounter Details Date Type Department Care Team (Latest Contact Info) Description 07/26/2013 9:44 AM EDT - 07/26/2013 11:59 PM EDT Hospital Encounter [place] [address] CLINIC, Lolly So MD [address] [place], [place] [id number] Mammographic microcalcification Discharge Disposition: Home Social History [...] AM EST Hospital Encounter Non-[place] [address] Arrived documented as of this encounter Procedures [...] are present on specimen digital X-ray. A [employer]-Stereo 13 Cylinder marker clip was placed. Cranio-caudal [...] one year. As discussed with Ms. Jorje Chirstian on 07/28/13. I performed the procedure without [...] mLs documented in this encounter Care Teams Real Time Operator Relationship Specialty Start Date End Date Lolly Oliveira MD [address] [place] [address] PCP - General 07/17/13 documented as of this encounter
--- OUTSIDE RECORDS SUMMARY | 2023-12-22 11:00 | XMS_ITS | Encounter Summary ---
Author Organization [facility] [place] [address] Care Team Providers Care Compensation/Benefits Specialist Name Role Phone Lolly Oliveira MD Primary Care Provider [phone] Encounter Details Date Type Department Care Team (Late st Contact Info) Description 07/26/2013 Orders [place] [phone] Eleno Christian MD [facility] [place] [address] Social History Tobacco Use Types Packs/Day Years [...] AM EST Hospital Encounter [place] [address] Arrived documented as of this encounter Visit Diagnoses Not on filedocumented in this encounter Care Teams Compensation/Benefits Specialist Relationship Specialty Start Date End Date Lolly Oliveira MD [address] [place] [address] PCP - General 07/17/13 documented as of this encounter
--- OUTSIDE RECORDS SUMMARY | 2023-12-22 11:00 | XMS_ITS | Encounter Summary ---
[place] [address] Care Team Providers Care Machine Burrer Name Role Phone Lolly Oliveira MD Primary Care Provider [phone] Encounter Details Date Type Department Care Team [...] AM EST Hospital Encounter Non-[place] [address] Arrived documented as of this encounter Visit Diagnoses Not on filedocumented in this encounter Care Teams Machine Burrer Relationship Specialty Start Date End Date Lolly Oliveira MD [address] [place] [address] PCP - General 07/17/13 documented as of this encounter
--- OUTSIDE RECORDS SUMMARY | 2023-12-22 11:00 | XMS_ITS | Encounter Summary ---
Author Organization [facility] [place] [address] Care Team Providers Care Supervisor Alteration Workroom Name Role Phone Lolly Oliveira MD Primary Care Provider [phone] Encounter Details Date Type Department Care Team (Latest Contact Info) Description 07/20/2013 9:26 AM EDT - 07/20/2013 11:59 PM EDT Hospital [place] [phone] CLINIC, Lolly So MD [address] [place], [place] [id number] Mammographic microcalcification Discharge Disposition: Home Social History [...] EST Hospital Encounter Non-Invasive [place] [address] Arrived documented as of this encounter Procedures [...] does not layer and, therefore, are not food service representative of milk of calcium. Again, [...] does not layer and, therefore, are not food service representative of milk of calcium. Again, these have an amorphous andpunctate appearance and remain indeterminate. Stereotactic guided biopsy isrecommended. Alia Fraire MD IMG MAMMO ORDERABLES documented in this encounter Visit Diagnoses Diagnosis Mammographic microcalcification documented in this encounter Care Teams Supervisor Alteration Workroom Relationship Specialty Start Date End Date Lolly Oliveira MD [address] [place] [address] PCP - General 07/17/13 documented as of this encounter
--- OUTSIDE RECORDS SUMMARY | 2023-12-22 11:00 | XMS_ITS | Encounter Summary ---
[place] [address] Care Team Providers Care Export Freight Manager Name Role Phone Lolly Oliveira MD Primary Care Provider [phone] Encounter Details Date Type Department Care Team (Late st Contact Info) Description 07/17/2013 [place] [phone] Lolly Oliveira MD [address] [place], [place] [id number] Social History Tobacco Use Types Packs/Day Years [...] AM EST Hospital Encounter [place] [address] Arrived documented as of this encounter Procedures [...] (PERFORMED ON 07/06/13 AND 07/14/13) FROM [facility] DATED 07/17/13: ?? DIAGNOSTIC IMAGING SUMMARY: ?? [...] OUTSIDE MAMMOGRAMS (PERFORMED ON 07/06/13 AND 07/14/13) [facility] DATED 07/17/13: DIAGNOSTIC IMAGING [...] on filedocumented in this encounter Care Teams Export Freight Manager Relationship Specialty Start Date End Date Lolly Oliveria MD [address] [place] [address] PCP - General 07/17/13 documented as of this encounter
--- OUTSIDE RECORDS SUMMARY | 2023-12-22 11:00 | XMS_ITS | Encounter Summary ---
Author Organization [facility] [place] [address] Care Team Providers Care Cash Analyst Name Role Phone Lolly Oliveira MD Primary Care Provider [phone] Encounter Details Date Type Department Care Team (Latest Contact Info) Description 07/26/2013 9:45 AM EDT - 07/26/2013 11:59 PM EDT Hospital En[place] [address] Mammographic microcalcification Social History Tobacco Use Types [...] AM EST Hospital Encounter Non-[place] [address] Arrived documented as of this encounter Procedures [...] microcalcification documented in this encounter Care Teams Cash Analyst Relationship Specialty Start Date End Date Lolly Oliveira MD [address] [place] [address] PCP - General 07/17/13 documented as of this encounter
--- OUTSIDE RECORDS SUMMARY | 2023-12-22 11:00 | XMS_ITS | Encounter Summary ---
Author Organization [place] [address] Care Team Providers Care Forest Worker Name Role Phone Lolly Oliveira MD Primary Care Provider [phone] Reason for Referral * Consultation (Routine) - Closed Specialty Diagnoses / Procedures Referred By Contact Referred To Contact Electrophysiology / Cardiology Diagnoses Left bundle branch block Cardiomyopathy, unspecified type AT MINIMUM PT NEEDS CONSIDERATION FOR DEFIBRILLATOR, ALSO CANDIDATE FOR RESYNCHRONIZATION THERAPY HER QRS IS >0.16 Lolly Oliveira MD [address] [place] [address] [facility] [address] [place] [address] Referral ID Status Reason Start Date Expiration Date V isits Requested Visits Authorized [id number] Closed Consult, Test & Treat PCP Updated and/or Approved 04/30/2022 04/30/2023 6 6 Encounter Details Date Type Department Care Team (Latest Contact Info) Description 04/30/2022 Transcribe Orders eDH Incoming Referrals [phone] Lolly Oliveira MD [address] [place], [place] [phone] Left bundle branch block; Cardiomyopathy, unspecified type [...] Hospital Encounter Non-[place] [address] Arrived Scheduled Referrals Name Type Priority Associated Diagnoses Orde r Schedule Referral to Cardiology Outpatient Referral Routine Left bundle branch block Cardiomyopathy, Unspecified Type Ordered: 04/30/2022 documented as of this encounter Visit Diagnoses Diagnosis Left bundle branch block Other left bundle branch block Cardiomyopathy, unspecified type documented in this encounter Care Teams Forest Worker Relationship Specialty Start Date End Date Lolly Oliveira MD [address] [place] [address] PCP - General 07/17/13 documented as of this encounter
--- OUTSIDE RECORDS SUMMARY | 2023-12-22 11:00 | XMS_ITS | Encounter Summary ---
Author Organization [facility] [place] [address] Care Team Providers Care Windows Server Administrator Name Role Phone Lolly Oliveira MD Primary Care Provider [phone] Reason for Visit * Reason Comments Skin Check Encounter Details Date Type Department Care Team (Late st Contact Info) Description 11/23/2014 10:00 AM EDT Office Visit Dermatology at [address] [address] Clay Ramírez MD [address] [facility], [place] [address] Dermatofibroma; Nevus; Solar lentigo Discharge Disposition: Home [...] [facility] Hospital Encounter Non[place] [address] Arrived documented as of this encounter Visit Diagnoses Diagnosis Dermatofibroma Benign neoplasm of skin, site unspecified Nevus Benign neoplasm of skin, site unspecified Solar lentigo Other dyschromia documented in this encounter Care Teams Windows Server Administrator Relationship Specialty Start Date End Date Lolly Oliveira MD [address] [place] [address] PCP - General 07/17/13 documented as of this encounter
--- OUTSIDE RECORDS SUMMARY | 2023-12-22 11:00 | XMS_ITS | Encounter Summary ---
Author Organization [facility] [place] [address] Care Team Providers Care Trouble Locater Name Role Phone Unavailable Primary Care Provider Unavailabl e Encounter Details Date Type Department Care Team (Late st Contact Info) Description 07/14/2013 External Results XRay at [address] [place] [address] Provider, Scanning Social History Tobacco Use Types [...] AM EST Hospital Encounter Non-Invasive Cardiology Lab [facility] [place] [address] Arrived documented as of this encounter Procedures [...]
--- OUTSIDE RECORDS SUMMARY | 2023-12-22 11:00 | XMS_ITS | Encounter Summary ---
[place] [address] Care Team Providers Care Court Abstractor Name Role Phone Lolly Oliveira MD Primary Care Provider [phone] Encounter Details Date Type Department Care Team [...] AM EST Hospital Encounter [place] [address] Arrived documented as of this encounter Visit Diagnoses Not on filedocumented in this encounter Care Teams Court Abstractor Relationship Specialty Start Date End Date Lolly Oliveira MD [address] [place] [address] PCP - General 07/17/13 documented as of this encounter
--- OUTSIDE RECORDS SUMMARY | 2023-12-22 11:00 | XMS_ITS | Encounter Summary ---
Author Organization [facility] [place] [address] Care Team Providers Care Drum Printer Name Role Phone Lolly Oliveira MD Primary Care Provider [phone] Encounter Details Date Type Department Care Team (Late st Contact Info) Description 10/09/2021 Telephone Dermatology at [address] [address] Nora Meredith LPN Social History [...] [facility] Hospital Encounter Non-[place] [address] Arrived documented as of this encounter Visit Diagnoses Not on filedocumented in this encounter Care Teams Drum Printer Relationship Specialty Start Date End Date Lolly Oliveira MD [address] [place] [address] PCP - General 07/17/13 documented as of this encounter
[2023-12-22 14:11] VITALS: BP 126/65; PULSE 71
--- OUTSIDE RECORDS SUMMARY | 2023-12-24 11:03 | XMS_ITS | Encounter Summary ---
Author Organization [facility] [place] [address] Care Team Providers Care Oil Tank Car Cleaner Name Role Phone Lolly Oliveira MD Primary Care Provider [phone] Encounter Details Date Type Department Care Team (Latest Contact Info) Description 04/21/2023 10:00 AM EST - 04/21/2023 11:59 PM EST Hospital Encounter Non-[place] [address] Discharge Disposition: Home Social History Tobacco Use [...] with spacer fluticasone propionate (Flonase) 50 mcg/actuation [place], Suspension 1 spray by Each Nare route [...] AM EST Hospital Encounter Non-[place] [address] Arrived documented as of this [...] filedocumented in this encounter Care Teams Oil Tank Car Cleaner Relationship Specialty Start Date End Date Lolly Oliveira MD [address] [place] [address] PCP - General 07/17/13 documented as of this encounter
--- OUTSIDE RECORDS SUMMARY | 2023-12-24 11:03 | XMS_ITS | Encounter Summary ---
Author Organization [facility] Address [address] [place] [address] Care Team Providers Care Instrumentation Engineering Technician Name Role Phone Lolly Oliveira MD Primary Care Provider [phone] Encounter Details Date Type Department Care Team (Late st Contact Info) Description 04/01/2005 Results Only [facility] - [facility] conversion [address] [place] [address] Blair Dukes MD [address] [place] [id number] Social History Tobacco Use Types Packs/Day Years [...] ? JING ALVARENGA ? Accession #: ? [id number] ? : ? 1950 (Age: 54) ??F [...] ? Received in [place]e' s fixative labelled [place] and #1 ??terminal ileum bx is a single 0.3 x 0.2 x 0.2 cm tissue, submitted intact as (A). Received in [place]e' s fixative labelled [place] and #2 ??transverse colon bx is a single 0.2 x 0.2 x 0.2 cm tissue, submitted intact as (B). ??(Dr. Lechuga)/[facility] End of Report [facility] 04/01/2005 04/02/2005 15: 24 EST Blair Dukes MD PATHOLOGY ORDERABLES [facility] [address] [place] [address] documented in this encounter Visit Diagnoses Not on filedocumented in this encounter Care Teams Instrumentation Engineering Technician Relationship Specialty Start Date End Date Lolly Oliveira MD [address] [place] [address] PCP - General 11/13/08 documented as of this encounter
--- OUTSIDE RECORDS SUMMARY | 2023-12-24 11:03 | XMS_ITS | Clinical Summary ---
Author Organization [facility] [place] [address] Care Team Providers Care Medical Artist Name Role Phone Lolly Oliveira MD Primary Care Provider [phone] Allergies Active Allergy Reactions Criticality Noted Date [...] Active fluticasone propionate (Flonase) 50 mcg/actuation [place], Suspension 1 spray by Each Nare route [...] PM EDT Hospital Encounter Non-[place] [address] Discharge Disposition: Home from Last [...] Hospital Encounter Non-[place] [address] Arrived Health Maintenance Due Date Last Done [...] series) 11/07/2023 Medical Devices Implanted Type Area Landscape Horticulture Instructor Device Identifier Shelf Expiration Date Model / Serial / Lot Bsx: [id number]: [id number]/18/2 023 Implanted: by Lalit Mcmahon MD (Quantity not on file) Defibrillator Chest Wall [employer] [id number] / [id number] / Bsx: 4674: 300392-4/18/2 023 Implanted: by Lalit Mcmahon MD (Quantity not on file) Lead Heart [employer] 4674 / [id number] / Bsx: [id number]: [id number] Implanted: by Lalit Mcmahon MD (Quantity not on file) Lead Heart [employer] 7841 / [id number] / Bsx: 0672: 660285-0/18/2 023 Implanted: by Lalit Mcmahon MD (Quantity not on file) Lead Heart [employer] 0672 / [id number] / Procedures Procedure Name Priority Date/Time Associated [...] Status decision made by: Patient Care Teams Medical Artist Relationship Specialty Start Date End Date Lolly Oliveira MD [address] [place] [address] PCP - General 07/17/13
--- OUTSIDE RECORDS SUMMARY | 2023-12-24 11:03 | XMS_ITS | Encounter Summary ---
Author Organization [facility] Address [address] [place] [address] Care Team Providers Care Buffer Operator Name Role Phone Lolly Oliveira MD Primary Care Provider [phone] Encounter Details Date Type Department Care Team (Late st Contact Info) Description 05/02/2004 Results Only [facility] - [facility] conversion [address] [place] [address] Lolly Oliveira MD [address] [place], [place] [id number] Social History Tobacco Use Types Packs/Day Years [...] 68. [facility] Report Status Final [id number] [facility] 05/02/2004 9:32 EST 05/10/2004 9:32 EST Lolly Oliveira MD MICROBIOLOGY - GENER AL ORDERABLES [facility] [address] [place] [address] * CYTOPATHOLOGY (05/02/2004 0:00 EST) Pathology Report: CYTOPATHOLOGY REPORT Reports generated via electronic interface contain original data; however they are lacking the format of the original report. Caution should be taken when reading/interpreti ng unformatted reports. Name: ? JING ALVARENGA ? Accession #: ? [id number] : ? 1950 (Age: 53) ??F ?Collect [...] MD PATHOLOGY ORDERABLES Performing Organization Address City/State/[facility] Co de Phone Number [facility] [address] [place] [address] documented in this encounter Visit Diagnoses Not on filedocumented in this encounter Care Teams Buffer Operator Relationship Specialty Start Date End Date Lolly Oliveira MD [address] [place] [address] PCP - General 11/13/08 documented as of this encounter
--- OUTSIDE RECORDS SUMMARY | 2023-12-24 11:03 | XMS_ITS | Encounter Summary ---
Author Organization [facility] [place] [address] Care Team Providers Care Salvage Cutter Name Role Phone Lolly Oliveira MD Primary Care Provider [phone] Encounter Details Date Type Department Care Team [...] AM EST Hospital Encounter Non-Invasive [place] [address] Arrived documented as of this encounter Visit Diagnoses Not on filedocumented in this encounter Care Teams Salvage Cutter Relationship Specialty Start Date End Date Lolly Oliveira MD [address] [place] [address] PCP - General 07/17/13 documented as of this encounter
--- OUTSIDE RECORDS SUMMARY | 2023-12-24 11:03 | XMS_ITS | Encounter Summary ---
Author Organization [facility] Address [address] [place] [address] Care Team Providers Care Chainstitch Elastic Attacher Name Role Phone Lolly Oliveira MD Primary Care Provider [phone] Encounter Details Date Type Department Care Team (Late st Contact Info) Description 02/20/2020 Lab Requisition [facility] Pathology & Laboratory Medicine - [address] [id number] Outr Resulting Lab, Provider Social History Tobacco [...] in accordance with CLIA regulations, [employer] (CAP) guidelines (May 25, 2019), and FDA guidance (May 06, 2019). This test is only for use under the Food and Drug Administration's Emergency Use Authorization. Swab ENTIRE NASOPHARYNX / Unknown 02/19/2020 16:30 EST 02/20/2020 16:09 EST Provider Outr Resulting Lab MICROBIOLOGY - GENERAL ORDERABLES [facility] [place] * COVID-19 TESTING (02/19/2020 16:30 EST) COVID-19 rt-PCR Result NEGATIVE Negative 02/22/2020 23:41 EST [facility] Comment: 2019-novel Coronavirus (2019-nCoV) not [...] in accordance with CLIA regulations, [employer] (CAP) guidelines (May 25, 2019), and FDA guidance (May 06, 2019). This test is only for use under the Food and Drug Administration's Emergency Use Authorization. Performing Lab [facility] 02/22/2020 23:41 EST [facility] Swab 02/19/2020 16:3 0 EST 02/20/2020 16:09 EST Provider Outr Resulting Lab MICROBIOLOGY - GENERAL ORDERABLES [facility] [address] [place] [address] [facility] [place] documented in this encounter Visit Diagnoses Not on filedocumented in this encounter Care Teams Chainstitch Elastic Attacher Relationship Specialty Start Date End Date Lolly Oliveira MD [address] [place] [address] PCP - General 11/13/08 documented as of this encounter
--- OUTSIDE RECORDS SUMMARY | 2023-12-24 11:03 | XMS_ITS | Encounter Summary ---
Author Organization [facility] [place] [address] Care Team Providers Care Professional Fighter Name Role Phone Lolly Oliveira MD Primary Care Provider [phone] Reason for Visit * Reason Comments Follow-up 8 weeks UVB treatmen t twice weekly Encounter Details Date Type Department Care Team (Late st Contact Info) Description 07/19/2023 11:00 AM EDT Office Visit Dermatology at [address] [phone] Clay Ramírez MD [address], ERIKA A DERMATOLOGY [place], [place] [id number] Psoriasis Social History Tobacco Use Types Packs/Day [...] [facility] Hospital Encounter Non[place] [address] Arrived documented as of this encounter Visit Diagnoses Diagnosis Psoriasis Other psoriasis documented in this encounter Care Teams Professional Fighter Relationship Specialty Start Date End Date Lolly Oliveira MD [address] [place] [address] PCP - General 07/17/13 documented as of this encounter
--- OUTSIDE RECORDS SUMMARY | 2023-12-24 11:03 | XMS_ITS | Encounter Summary ---
Author Organization [facility] Address [address] [place] [address] Care Team Providers Care Bonderizer Operator Name Role Phone Lolly Oliveira MD Primary Care Provider [phone] Encounter Details Date Type Department Care Team (Late st Contact Info) Description 05/29/2002 Results Only [facility] [address] [place] [address] Silvia Diehl, [address] [place] [phone] Social History Tobacco Use Types Packs/Day Years [...] ? JING MOTT ? Accession #: ? [id number] : ? 1950 (Age: 51) ??F ?Collect Date: ? 05/29/2002 Location: ? [facility] ? Receive Date: ? 05/31/2002 Provider: ?SILVIA DIEHL BATTERY CONTAINER FINISHING HAND Copy to: ? Specimen/Source: ?ThinPrep Pap Test, [...] Report [facility] 05/29/2002 05/31/2002 Silvia Diehl BATTERY CONTAINER FINISHING HAND PATHOLOGY ORDERABLES [facility] [address] [place] [address] documented in this encounter Visit Diagnoses Not on filedocumented in this encounter Care Teams Bonderizer Operator Relationship Specialty Start Date End Date Lolly Oliveira MD [address] [place] [address] PCP - General 11/13/08 documented as of this encounter
--- OUTSIDE RECORDS SUMMARY | 2023-12-24 11:03 | XMS_ITS | Encounter Summary ---
Author Organization [facility] [place] [address] Care Team Providers Care Continuity Coordinator Name Role Phone Lolly Oliveira MD Primary Care Provider [phone] Encounter Details Date Type Department Care Team (Late st Contact Info) Description 03/15/2023 Telephone Cardiology at [address] [phone] Saranya Ma Social History Tobacco Use Types Packs/Day Years Used Date Smoking Tobacco: Never Alcohol Use Standard Drinks/Week Comments Not Currently 0 (1 standard drink = 0.6 oz pur e alcohol) [facility] Inpatient Questions Answer Date Recorded [...] her to have an echo done at [facility] prior to her appt withidm there on 05/12/23. Message sent to Dr. Mcmahon asking him to put order in if he would like her to have this done. Saranya Ma Sr. Clinical Procedure [place]/Planner documented in this encounter Plan of Treatment Upcoming Encounters Date Type Department Care Team (Late st Contact Info) Description 01/16/2024 10:00 AM EST Hospital Encounter [place] [address] Arrived documented as of this encounter Visit Diagnoses Not on filedocumented in this encounter Care Teams Continuity Coordinator Relationship Specialty Start Date End Date Lolly Oliveira MD [address] [place] [address] PCP - General 07/17/13 documented as of this encounter
--- OUTSIDE RECORDS SUMMARY | 2023-12-24 11:03 | XMS_ITS | Encounter Summary ---
Author Organization [facility] Address [address] [place] [address] Care Team Providers Care Wheel Alignment Technician Name Role Phone Lolly Oliveira MD Primary Care Provider [phone] Encounter Details Date Type Department Care Team (Late st Contact Info) Description 03/21/2019 Lab Requisition [facility] Pathology & Laboratory Medicine - [address] [address] Unknown, Provider, Social History Tobacco Use Types [...] 211 - 911 pg/mL 03/22/2019 11:52 EST [facility] Blood VENOUS BLOOD / Unknown 03/16/2019 9:25 EST 03/21/2019 21:35 EST Provider Unknown CHEMISTRY & BLOOD GA S ORDERABLES [facility] [address] [place] [address] documented in this encounter Visit Diagnoses Not on filedocumented in this encounter Care Teams Wheel Alignment Technician Relationship Specialty Start Date End Date Lolly Oliveira MD [address] [place] [address] PCP - General 11/13/08 documented as of this encounter
--- OUTSIDE RECORDS SUMMARY | 2023-12-24 11:03 | XMS_ITS | Encounter Summary ---
Author Organization [facility] [place] [address] Care Team Providers Care Offset Press Operator Name Role Phone Lolly Oliveira MD Primary Care Provider [phone] Encounter Details Date Type Department Care Team (Latest Contact Info) Description 10/18/2023 10:00 AM EDT - 10/18/2023 11:59 PM EDT Hospital Encounter [place] [phone] Discharge Disposition: Home Social History Tobacco Use [...] with spacer fluticasone propionate (Flonase) 50 mcg/actuation [place], Suspension 1 spray by Each Nare route daily as needed. documented as of this encounter Plan of Treatment Upcoming Encounters Date Type Department Care Team (Late st Contact Info) Description 01/16/2024 10:00 AM EST Hospital Encounter Non[place] [address] Arrived documented as of this encounter Procedures [...] on filedocumented in this encounter Care Teams Offset Press Operator Relationship Specialty Start Date End Date Lolly Oliveira MD [address] [place] [address] PCP - General 07/17/13 documented as of this encounter
--- OUTSIDE RECORDS SUMMARY | 2023-12-24 11:03 | XMS_ITS | Encounter Summary ---
Author Organization [facility] Address [address] [place] [address] Care Team Providers Care Webfed Offset Press Operator Name Role Phone Lolly Oliveira MD Primary Care Provider [phone] Encounter Details Date Type Department Care Team (Late st Contact Info) Description 05/27/2021 Lab Requisition [facility] Pathology & Laboratory Medicine - [address] [address] Iman Moran, DO [address] [place], [place] [phone] Encounter for other general examination Social History [...] management options, if applicable. 05/30/2021 13:31 EDT [facility] Final Diagnosis A. COLON, POLYP AT 90 CM, BIOPSY/POLYPECTOM Y: - Tubular adenoma. 05/30/2021 13:31 [facility] Attestation By the signature below, the attending physician certifies that they have 1) personally conducted a gross and/or microscopic examination of the described specimen(s), and/or personally interpreted the results of laboratory testing of the described specimen(s), and 2) personally rendered or confirmed the above diagnosis. 05/30/2021 13:31 [facility] at 1331 Clinical History Severe diverticula and polypectomy x1 05/30/2021 13:31 [facility] Gross Description A. Received in formalin labelled with proper patient identification (initials J, K) and colon polyp x1 at 90 cm is a light pineda polypoid tissue measuring 0.2 x 0.2 x 0.2 cm. Submitted intact in A1. MICKEY CARLOS(ASCP) 05/27/2021 19:11 05/30/2021 13:31 [facility] Performing Lab [facility] 05/30/2021 13:31 [facility] Scanned Images 05/30/2021 13:31 [facility] Tissue ENTIRE COLON / Unknown 05/27/2021 11:23 EDT 05/27/2021 16:33 EDT Iman Moran DO PATHOLOGY ORDERABLES [facility] [address] [place] [address] documented in this encounter Visit Diagnoses Diagnosis Encounter for other general examination documented in this encounter Care Teams Webfed Offset Press Operator Relationship Specialty Start Date End Date Lolly Oliveira MD [address] [place] [address] PCP - General 11/13/08 documented as of this encounter
--- OUTSIDE RECORDS SUMMARY | 2023-12-24 11:03 | XMS_ITS | Encounter Summary ---
Author Organization [facility] Address [address] [place] [address] Care Team Providers Care Automotive Shop Foreman Name Role Phone Lolly Oliveira MD Primary Care Provider [phone] Encounter Details Date Type Department Care Team (Late st Contact Info) Description 11/13/2020 Lab Requisition [facility] Pathology & Laboratory Medicine - [address] [address] Outr Resulting Lab, Provider Social History Tobacco [...] GENERAL ORDERABLES [facility] [address] [place] [address] * COVID-19 TESTING (11/13/2020 7:30 EDT) COVID-19 rt-PCR Result Negative Negative 11/14/2020 11:46 EDT [facility] Comment: This test has not [...] performed using the med SARS-CoV-2 assay ([employer] on the Med 6800 System Performing Lab Med 6800 [facility] 11/14/2020 11:46 EDT [facility] Swab 11/13/2020 7:30 EDT 11/13/2020 20:57 EDT Provider Outr Resulting Lab MICROBIOLOGY - GENERAL ORDERABLES [facility] [address] [place] [address] documented in this encounter Visit Diagnoses Not on filedocumented in this encounter Care Teams Automotive Shop Foreman Relationship Specialty Start Date End Date Lolly Oliveira MD [address] [place] [address] PCP - General 11/13/08 documented as of this encounter
--- OUTSIDE RECORDS SUMMARY | 2023-12-24 11:03 | XMS_ITS | Encounter Summary ---
Author Organization [facility] [place] [address] Care Team Providers Care Temperature Regulator Name Role Phone Lolly Oliveira MD Primary Care Provider [phone] Encounter Details Date Type Department Care Team (Late st Contact Info) Description 05/18/2023 Telephone Dermatology at [address] [address] Nora Meredith LPN Social History [...] [facility] Hospital Encounter Non-[place] [phone] Arrived documented as of this encounter Visit Diagnoses Not on filedocumented in this encounter Care Teams Temperature Regulator Relationship Specialty Start Date End Date Lolly Oliveira MD [address] [place] [address] PCP - General 07/17/13 documented as of this encounter
--- OUTSIDE RECORDS SUMMARY | 2023-12-24 11:03 | XMS_ITS | Encounter Summary ---
Author Organization [facility] Address [address] [place] [address] Care Team Providers Care Fixed Income Director Name Role Phone Lolly Oliveira MD Primary Care Provider Encounter Details Date Type Department Care Team (Late st Contact Info) Description 04/17/2005 Results Only [facility] conversion [address] [place] [address] Lolly Oliveira MD [address] [place], [place] [phone] Social History Tobacco Use Types Packs/Day Years [...] ? JING ALVARENGA ? Accession #: ? [id number] : ? 1950 (Age: 54) ??F ?Collect Date: ? 04/17/2005 Location: ? [facility] ? Receive Date: ? 04/21/2005 Provider: ?LOLLY OLIVEIRA MD Copy to: ? Specimen/Source: ?ThinPrep Pap Test, Cervix/Endocervix, processed on [employer] System, with manual evaluation Last Menstrual [...] Oliveira MD PATHOLOGY ORDERABLES [facility] [address] [place] [address] documented in this encounter Visit Diagnoses Not on filedocumented in this encounter Care Teams Fixed Income Director Relationship Specialty Start Date End Date Lolly Oliveira MD [address] [place] [address] PCP - General 11/13/08 documented as of this encounter
--- OUTSIDE RECORDS SUMMARY | 2023-12-24 11:03 | XMS_ITS | Referral Summary ---
Author Organization [facility] Address [address] [place] [address] Care Team Providers Care Nut Threader Name Role Phone Lolly Oliveira MD Primary Care Provider [phone] Social History Tobacco Use Types Packs/Day Years Used Date Smoking Tobacco: Never Assessed Sex and Gender Information Value Date Recorded Sex Assigned at Not on file Gender Identity Not on file Sexual Orientation Not on file Plan of Treatment Not on file Care Teams Nut Threader Relationship Specialty Start Date End Date Lolly Oliveira MD [address] [place] [address] PCP - General 11/13/08
--- OUTSIDE RECORDS SUMMARY | 2023-12-24 11:03 | XMS_ITS | Encounter Summary ---
Author Organization [facility] Address [address] [place] [address] Care Team Providers Care Security Support Analyst Name Role Phone Lolly Oliveira MD Primary Care Provider Encounter Details Date Type Department Care Team (Late st Contact Info) Description 04/12/2007 Results Only [facility] conversion [address] [place] [address] Lolly Oliveira MD [address] [place], [place] [phone] Social History Tobacco Use Types Packs/Day Years [...] ? JING ALVARENGA ? Accession #: ? [id number] : ? 1950 (Age: 56) ??F ?Collect Date: ? 04/12/2007 Location: ? [facility] ? Receive Date: ? 04/13/2007 Provider: ?LOLLY OLIVEIRA MD Copy to: ? Specimen/Source: ?ThinPrep Pap Test, Cervix/Endocervix, processed on [email or web address] ThinPrep Imaging System, with manual evaluation Last [...] Oliveira MD PATHOLOGY ORDERABLES [facility] [address] [place] [address] documented in this encounter Visit Diagnoses Not on filedocumented in this encounter Care Teams Security Support Analyst Relationship Specialty Start Date End Date Lolly Oliveira MD [address] [place] [address] PCP - General 11/13/08 documented as of this encounter
--- OUTSIDE RECORDS SUMMARY | 2023-12-24 11:03 | XMS_ITS | Encounter Summary ---
Author Organization [facility] [place] [address] Care Team Providers Care Loan Inspector Name Role Phone Lolly Oliveira MD Primary Care Provider [phone] Encounter Details Date Type Department Care Team (Late st Contact Info) Description 03/17/2023 Telephone Cardiology at [address] [phone] Saranya Ma Social History Tobacco Use Types [...] AM EST Echo order faxed to [facility] at [phone]. No Prior auth needed. Ref #:[id number]. Saranya Ma Sr. Clinical Procedure [place]/Pc Tech documented in this encounter Plan of Treatment Upcoming Encounters Date Type Department Care Team (Late st Contact Info) Description 01/16/2024 10:00 AM [facility] Hospital Encounter Non-Invasive [place] [address] Arrived documented as of this encounter Visit Diagnoses Not on filedocumented in this encounter Care Teams Loan Inspector Relationship Specialty Start Date End Date Lolly Oliveira MD [address] [place] [address] PCP - General 07/17/13 documented as of this encounter
--- OUTSIDE RECORDS SUMMARY | 2023-12-24 11:03 | XMS_ITS | Encounter Summary ---
Author [facility] [place] [address] Care Team Providers Care Process Coordinator Name Role Phone Lolly Oliveira MD Primary Care Provider [phone] Reason for Referral * Diagnostic Test (Routine) - Closed Specialty Diagnoses / Procedures Referred By Contkoki t Referred To Contact Cardiology Diagnoses Nonischemic cardiomyopathy Biventricular ICD (implantable cardioverter-defibrillator) in place Procedures Echocardiogram Transthoracic Lalit Mcmahon MD [facility] [place] [address] Referral ID Status Reason Start Date Expiration Date V isits Requested Visits Authorized [id number] Closed Specialty Service Requested 03/15/2023 09/11/2023 1 1 Encounter Details Date Type Department Care Team (Late st Contact Info) Description 03/15/2023 Orders Only Cardiology at [address] [address] Lalit Mcmahon MD [facility] [place] [address] Nonischemic cardiomyopathy; Biventricular ICD (implantable cardioverter-defibrill ator) [...] AM EST Hospital Encounter [place] [address] Arrived Scheduled Orders Name Type Priority Associated Diagnoses Order Schedule Echocardiogram Transthoracic Echocardiography Routine Nonischemic cardiomyopathy Biventricular ICD (implantable cardioverter-defibr illator) in place Expected: 05/05/2023, Expires: 11/04/2023 documented as of this encounter Visit Diagnoses Diagnosis Nonischemic cardiomyopathy Other primary cardiomyopathies Biventricular ICD (implantable cardioverter-defibrillator) in place documented in this encounter Care Teams Process Coordinator Relationship Specialty Start Date End Date Lolly Oliveira MD [address] [place] [address] PCP - General 07/17/13 documented as of this encounter
--- OUTSIDE RECORDS SUMMARY | 2023-12-24 11:03 | XMS_ITS | Encounter Summary ---
Author Organization [facility] [address] Care Team Providers Care C Application Developer Name Role Phone Lolly Oliveira MD Primary Care Provider Encounter Details Date Type Department Care Team (Late st Contact Info) Description 05/18/2023 Refill Dermatology at [address] [address] Nora Meredith LPN Social History [...] patient. She voiced understanding. Order sent to [facility] drug. documented in this encounter Plan of Treatment Upcoming Encounters Date Type Department Care Team (Late st Contact Info) Description 01/16/2024 10:00 AM EST Hospital Encounter Non-Invasive [place] [address] Arrived documented as of this encounter Visit Diagnoses Not on filedocumented in this encounter Care Teams C Application Developer Relationship Specialty Start Date End Date Lolly Oliveira MD [address] [place] [address] PCP - General 07/17/13 documented as of this encounter
--- OUTSIDE RECORDS SUMMARY | 2023-12-24 11:03 | XMS_ITS | Encounter Summary ---
Author Organization [facility] Address [address] [place] [address] Care Team Providers Care Signs And Displays Sales Representative Name Role Phone Lolly Oliveira MD Primary Care Provider [phone] Encounter Details Date Type Department Care Team (Late st Contact Info) Description 04/25/2009 Orders Only [facility] Laboratory Services - [facility] ([facility] [address] [place], [place] [phone] Lolly Oliveira MD [address] [place], [place] [phone] Social History Tobacco Use Types Packs/Day Years [...] ? JING ALVARENGA ? Accession #: ? [id number] ? : ? 1950 (Age: 58) ??F [...] Lolly Oliveira MD PATHOLOGY ORDERABLES [facility] [address] [place] [address] documented in this encounter Visit Diagnoses Not on filedocumented in this encounter Care Teams Signs And Displays Sales Representative Relationship Specialty Start Date End Date Lolly Oliveira MD [address] [place] [address] PCP - General 11/13/08 documented as of this encounter
--- OUTSIDE RECORDS SUMMARY | 2023-12-24 11:03 | XMS_ITS | Encounter Summary ---
Author Organization [facility] Address [address] [place] [address] Care Team Providers Care Lighting Fixtures Decorator Name Role Phone Lolly Oliveira MD Primary Care Provider [phone] Encounter Details Date Type Department Care Team (Late st Contact Info) Description 02/11/[address] [facility] Pathology & Laboratory Medicine - [address] [address] Outr Resulting Lab, Provider Social History Tobacco [...] Outr Resulting Lab MICROBIOLOGY - GENERAL ORDERABLES [facility] [address] [place] [address] * COVID-19 TESTING (02/11/2021 8:00 EST) COVID-19 rt-PCR Result Negative Negative 02/12/2021 14:17 EST [facility] Comment: This test has not [...] was performed using the med SARS-CoV-2 assay ([employer] on the Med 6800 System Performing Lab Med 6800 [facility] Lab 02/12/2021 14:17 EST [facility] Swab 02/11/2021 8:00 EST 02/11/2021 22:22 EST Provider Outr Resulting Lab MICROBIOLOGY - GENERAL ORDERABLES [facility] [address] [place] [address] documented in this encounter Visit Diagnoses Not on filedocumented in this encounter Care Teams Lighting Fixtures Decorator Relationship Specialty Start Date End Date Lolly Oliveira MD [address] [place] [address] PCP - General 11/13/08 documented as of this encounter
--- OUTSIDE RECORDS SUMMARY | 2023-12-24 11:03 | XMS_ITS | Clinical Summary ---
Author Organization [facility] Address [address] [place] [address] Care Team Providers Care Program Manager Name Role Phone Lolly Oliveira MD Primary Care Provider [phone] Social History Tobacco Use Types Packs/Day Years [...] COVID-19 Vaccine ( season) 2023 Care Teams Program Manager Relationship Specialty Start Date End Date Lolly Oliveira MD [address] [place], [place] [id number] PCP - General 11/13/08
--- OUTSIDE RECORDS SUMMARY | 2023-12-24 11:03 | XMS_ITS | Data Portability ---
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 For Daily Living? No [email or web address] Information not available 05/21/2023 What Is Your Housing Situation Today? I Have Housing. [email or web address] Information not available 05/21/2023 How Often In The Past Year Have You Used Marijuana (including Smoking, Vaping, Dabbing, Or Edibles)? Never [email or web address] Information not available 05/21/2023 How Often In [...] Example, Heroin, Cocaine, Meth, Salvia, Inhalants)? Never egntohwo84 Information not available 05/21/2023 Have You Ever Used IV Drugs? No Information not available 05/21/2023 What Matters Most To You? Staying Healthy, Keeping Active. Getting Exercise And Losing Some Weight [email or web address] Information not available 05/21/2023 During The Past Four Weeks Has Your Physical And Emotional Health Limited Your Social Activities With Family And Friends, Neighbors, Or Groups? Not At All ltkamiqf10 Information not available 05/21/2023 During The Past Four Weeks, Was Someone Available To Help You If You Needed And Wanted Help? (For Example, If You [place] Very Nervous, Lonely, Or Blue; Got Sick And Had To Stay In Bed; Needed Someone To Talk To; Needed Help With Daily Chores; Or Needed Help Just Taking Care Of Yourself.) No- Not At All [email or web address] Information n ot available 05/21/2023 During The Past Four Weeks, What Was The Hardest Physical Activity You Could Do For At Least 2 Minutes? Moderate qemxomqg50 Information not available 05/21/2023 Can You Get To Places Out Of Walking Distance Without Help? (For Example, Can You Travel Alone On Buses Or Taxis, Or Drive Your Own Car?) Yes [email or web address] Information not available 05/21/2023 Can You Go Shopping For Groceries Or Clothes Without Someone? s Help? Yes Information not available 05/21/2023 Can You Prepare Your Own Meals? Yes lxuzskxw96 Information not available 05/21/2023 Can You Do Your Housework Without Help? Yes fiqhrktf46 Information not available 05/21/2023 Because Of Any Health Problems, Do You Need The Help Of Another Person With Your Personal Care Needs Such As Eating, Bathing, Dressing, Or Getting Around The House? No oiykxvgm59 Information not available 05/21/2023 Can You Handle Your Own Money Without Help? Yes dlulmmkn76 Information not available 05/21/2023 Are You Having Difficulties Driving Your Car? No efvbfzjb43 Information no t available 05/21/2023 Do You Always Fasten Your Seat Belt When You Are In A Car? Yes- Usually hmrrsfir13 Information not available 05/21/2023 How Often During The Past Four Weeks Have You Been Bothered By Any Of The Following Problems? Falling Or Dizzy When Standing Up? Never [email or web address] Information not available 05/21/2023 Sexual Problems? Never nnzslozk27 Informat ion not available 05/21/2023 Trouble Eating Well? Sometimes dbsasjyz87 Information not available 05/21/2023 Teeth Or Denture Problems? Sometimes ghnwifey46 Information not available 05/21/2023 Problems Using The Telephone? Never eesjryrl75 Information not available 05/21/2023 Tiredness Or Fatigue? Sometimes ifyjbuxw29 Information not available 05/21/2023 Have You Had 2 Or More Falls Or Sustained An Injury With A Fall In The Last Year? No zvvvtexl19 Information no t available 05/21/2023 Do You Have Difficulty With Walking Or Balance? No rubmjajl90 Information not available 05/21/2023 Do You Currently Use A Hearing Device? No Information not available 05/21/2023 Do You Currently Have Any Trouble With Your Vision? Yes [email or web address] Information no t available 05/21/2023 Do You Exercise For About 20 Minutes Three Or More Days A Week? Yes- Most Of The Time ftbhlsro83 Information not available 05/21/2023 Are There Any Safety Concerns In Your Home (see Attached CDC Pamphlet)? No sdnwyxfo01 Information not available 05/21/2023 How Often Do You Have Trouble Taking Medicines The Way You Have Been Told To Take Them? I Always Take Them As Prescribed [email or web address] Information not available 05/21/2023 How Confident Are You That You Can Control And Manage Most Of Your Health Problems? Very Confident fhkuaunm79 Information not available 05/21/2023 Do You Currently Have Any Difficulty With Your Hearing? No [email or web address] Information not available 05/21/2023 Date Of Most Recent SBINS 05/21/2023 ortufobp30 Information not available 05/21/2023 What Was The [...] preservative free, adsorbed 11/03/2018 completed Not Available [facility] 01/15/2023 04:53:39 Tdap 04/12/2007 completed Not Available [facility] 04:53:39 zoster live 06/16/2012 completed Not Available [facility] 01/15/2023 04:53:40 Pneumococcal conjugate PCV 13 09/17/2015 completed Not Available [facility] 01/15/2023 04:53:40 Influenza, high-dose, trivalent, PF 11/26/2017 completed Not Available [facility] 01/15/2023 04:53:41 Td(adult) unspecified formulation 09/30/1992 completed Not Available [facility] 01/15/2023 04:53:41 Influenza, split virus, trivalent, preservative 11/28/2015 completed Not Available [facility] 01/15/2023 04:53:41 Influenza, split virus, trivalent, preservative 01/04/2015 completed Not Available [facility] 01/15/2023 04:53:41 Influenza, split virus, quadrivalent, PF 12/21/2018 completed Not Available [facility] 01/15/2023 04:53:41 zoster recombinant 08/30/2018 completed Not Available [facility] 01/15/2023 04:53:42 zoster recombinant 01/26/2018 completed Not Available [facility] 01/15/2023 04:53:42 Influenza, high-dose, quadrivalent, PF 12/04/2020 completed Not Available [facility] 01/15/2023 04:53:43 Influenza, high-dose, quadrivalent, PF 12/11/2019 completed Not Available [facility] 01/15/2023 04:53:43 Influenza, high-dose, quadrivalent, PF 12/29/2021 completed Not Available [facility] 01/15/2023 04:53:43 COVID-19, mRNA, LNP-S, PF, 100 mcg/0.5mL dose or 50 mcg/0.25mL dose 07/09/2021 completed Not Available [facility] 01/15/2023 04:53:43 COVID-19 vaccine, vector-nr, rS-Ad26, PF, 0.5 mL 05/02/2020 completed Not Available [facility] 01/15/2023 04:53:44 SARS-COV-2 (COVID-19) vaccine, UNSPECIFIED 05/31/2020 completed Not Available [facility] 01/15/2023 04:53:44 SARS-COV-2 (COVID-19) vaccine, UNSPECIFIED 01/03/2021 completed Not Available [facility] 01/15/2023 04:53:44 pneumococcal polysaccharide PPV23 07/05/2014 completed Not Available [facility] 2022 04:53:45 Hep B, unspecified formulation 04/14/1993 completed Not Available [facility] 01/15/2023 04:53:45 Hep B, unspecified formulation 09/30/1992 completed Not Available [facility] 01/15/2023 04:53:46 Hep B, unspecified formulation 10/31/1992 completed Not Available [facility] 01/15/2023 04:53:46 influenza, unspecified formulation 12/11/2009 completed Not Available [facility] 01/15/2023 04:53:47 influenza, unspecified formulation 12/13/2012 completed Not Available [facility] 01/15/2023 04:53:47 influenza, unspecified formulation 12/18/2008 completed Not Available [facility] 01/15/2023 04:53:47 influenza, unspecified formulation 12/19/2010 completed Not Available [facility] 01/15/2023 04:53:47 influenza, unspecified formulation 12/30/2006 completed Not Available [facility] 01/15/2023 04:53:48 influenza, unspecified formulation 01/09/2014 completed Not Available [facility] 01/15/2023 04:53:48 influenza, unspecified formulation 01/26/2008 completed Not Available [facility] 01/15/2023 04:53:48 influenza, unspecified formulation 02/16/2012 completed Not Available [facility] 01/15/2023 04:53:48 Influenza, high-dose, quadrivalent, PF 12/17/2022 completed Not Available [facility] 03/19/2023 05:33:03 COVID-19, mRNA, LNP-S, PF, herminio-sucrose, 30 mcg/0.3 mL 12/28/2022 completed Not Available [facility] 03/19/2023 05:33:03 COVID-19, mRNA, LNP-S, bivalent, PF, 50 mcg/0.5 mL or 25mcg/0.25 mL dose 12/01/2023 completed DENYS Bauer, [facility] 12/20/2023 15:23:33 Respiratory syncytial virus (RSV) vaccine, unspecified 12/01/2023 completed DENYS Bauer, [facility] 12/20/2023 15:24:29 influenza, unspecified formulation 12/01/2023 completed DENYS Bauer, [facility] 12/20/2023 15:25:14 Past Encounters Encounter ID Performer Location Encounter Start Date Encounter Closed Date Diagnosis/Indication Diagnosis SNOMED-CT Code Diagnosis ICD10 Code [id number] LOLLY CORTEZ MD [address] [address] 05/21/2023 10:03:54 05/21/2023 11:37:49 Onychomycosis 363131002 B35.1 Asthma 193994109 J45.90 9 Cardiomyopathy 35160834 I10 Disorder of hip joint 42 1250591 M12.859 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 Hyperlipidemia 67539882 E78.5 Vulval and /or perineal noninflammatory disorders 993362196 N90.9 Adult heal th examination 201578464 Z00.[id number] [place] [address] 09/01/2023 10:23:16 09/01/2023 13:28:10 Vertigo 142816628 R42 Impacted c erumen of bilateral ears 5073814780 489538 H61.23 [id number] LOLLY CORTEZ MD [facility] [address] [place] [address] 11/26/2023 07:26:08 11/26/2023 08:10:59 Screening mammography 49299849 Z12.31 Adjustment disorder 1722 6007 F43.20 Asthma 161664289 J45.90 9 Essential hypertension 61237464 I10 Guttate psoriasis 738054 00 L40.4 Cardiomyopathy 35464484 I10 Hyperlipidemia 50538717 E78.5 Prediabetes 908604973 R7 3.03 Health Concerns Section Related Observation LastModified by Organization Detai ls LastModified Time None Recorded Concern Status LastModified by Organization Details LastModified Time None Recorded Advance Directives Directive None Recorded Payers Encounter Date Sequence Insurance Name Policy Number Policy Lema Covered Member ID Lema Member ID Guarantor Name 05/21/2023 1 [place] - [place]PO) [id number] Luna Mott [id number] Luna Mott 09/01/2023 1 [place]) [id number] Luna Mott [id number] Luna Mott 11/26/2023 1 [place] - [place]) [id number] Luna Mott [id number] Luna Mott Notes Date Note Type Note Provider Name and Address Organization Details Recorded Time 05/21/2023 text/html HPI Notes: Thais here today for an annual wellness exam MD [address], [place], [address], [facility]. 05/24/2023 18:32:35 09/01/2023 text/html HPI Notes: [...] it. JESSICA INGRAM PA-C [address], [place], [address], [facility]. 09/01/2023 13:55:07 11/26/2023 text/html HPI Notes: Thais here today for follow-up of cardiomyopathy, obesity MD [address], [place], [address], [facility]. 11/28/2023 09:26:44 OBGyn Episode No OBEpisode recorded.
--- OUTSIDE RECORDS SUMMARY | 2023-12-24 11:03 | XMS_ITS | Encounter Summary ---
Author Organization [facility] Address [address] [place] [address] Care Team Providers Care Corn Grinder Name Role Phone Lolly Oliveira MD Primary Care Provider [phone] Encounter Details Date Type Department Care Team (Late st Contact Info) Description 06/16/2012 Results Only [facility] Services - [facility] [place] [address], [place] [phone] Lolly Oliveira MD [address] [place], [place] [phone] Social History Tobacco Use Types Packs/Day Years [...] ? JING ALVARENGA ? Accession #: ? [id number] : ? 1950 (Age: 61) ??F ?Collect [...] MD PATHOLOGY ORDERABLES [facility] [address] [place] [address] documented in this encounter Visit Diagnoses Not on filedocumented in this encounter Care Teams Corn Grinder Relationship Specialty Start Date End Date Lolly Oliveira MD [address] [place] [address] PCP - General 11/13/08 documented as of this encounter
--- OUTSIDE RECORDS SUMMARY | 2023-12-24 11:03 | XMS_ITS | Encounter Summary ---
Author Organization [facility] [place] [address] Care Team Providers Care Director Of Sustainable Design Name Role Phone Lolly Oliveira MD Primary Care Provider [phone] Encounter Details Date Type Department Care Team (Latest Contact Info) Description 07/20/2023 10:00 AM EDT - 07/20/2023 11:59 PM EDT Hospital Encounter Non-Invasive [place] [address] Discharge Disposition: Home Social History Tobacco Use [...] with spacer fluticasone propionate (Flonase) 50 mcg/actuation [place], Suspension 1 spray by Each Nare route daily as needed. documented as of this encounter Plan of Treatment Upcoming Encounters Date Type Department Care Team (Late st Contact Info) Description 01/16/2024 10:00 AM [facility] Hospital Encounter Non-Invasive [place] [address] Arrived documented as of this encounter Procedures [...] in this encounter Care Teams Director Of Sustainable Design Relationship Specialty Start Date End Date Lolly Oliveira MD [address] [place] [address] PCP - General 07/17/13 documented as of this encounter
--- OUTSIDE RECORDS SUMMARY | 2023-12-24 11:03 | XMS_ITS | Encounter Summary ---
Author Organization [facility] Address [facility] [place] [address] Care Team Providers Care Bulk Plant Agent Name Role Phone Lolly Oliveira MD Primary Care Provider [phone] Encounter Details Date Type Department Care Team (Late st Contact Info) Description 05/03/2023 Telephone Cardiology at [address] [phone] Lalit Mcmahon MD [facility] [place] [address] Social History Tobacco Use Types Packs/Day Years [...] AM EST Hospital Encounter Non-[place] [address] Arrived documented as of this encounter Visit Diagnoses Not on filedocumented in this encounter Care Teams Bulk Plant Agent Relationship Specialty Start Date End Date Lolly Oliveira MD [address] [place] [address] PCP - General 07/17/13 documented as of this encounter
--- OUTSIDE RECORDS SUMMARY | 2023-12-24 11:03 | XMS_ITS | Encounter Summary ---
Author Organization [facility] Address [address] [place] [address] Care Team Providers Care Supervisor Plastering Name Role Phone Unavailable Primary Care Provider Unavailabl e Encounter Details Date Type Department Care Team (Late st Contact Info) Description 11/07/2008 Orders Only [facility] Laboratory Services - [facility] ([facility] [place] [address] [place] [address] Kenneth Parker MD [address] [place] [address] Social History Tobacco Use Types Packs/Day Years [...] ? LYLE, JING ? Accession #: ? [id number] ? : ? 1950 (Age: 58) ??F [...] ? entirely in one cassette following filtration. (aAron Gray)/lgk ? End of Report ? [facility] 11/07/2008 11/08/2008 16: 51 EDT Kenneth Parker MD PATHOLOGY ORDERABLES Performing Organization Address City/State/[facility] Co de Phone Number [facility] [address] [place] [address] documented in this encounter Visit Diagnoses Not on filedocumented in this encounter
--- OUTSIDE RECORDS SUMMARY | 2023-12-24 11:03 | XMS_ITS | Encounter Summary ---
Author Organization [facility] Address [address] [place] [address] Care Team Providers Care Bail Attacher Name Role Phone Lolly Oliveira MD Primary Care Provider [phone] Encounter Details Date Type Department Care Team (Late st Contact Info) Description 03/06/2003 Results Only [facility] [address] [place] [address] Lolly Oliveira MD [address] [place], [place] [phone] Social History Tobacco Use Types Packs/Day Years [...] Oliveira MD PATHOLOGY ORDERABLES Performing Organization Address City/State/[facility] Co de Phone Number [facility] [address] [place] [address] documented in this encounter Visit Diagnoses Not on filedocumented in this encounter Care Teams Bail Attacher Relationship Specialty Start Date End Date Lolly Oliveira MD [address] [place] [address] PCP - General 11/13/08 documented as of this encounter
--- OUTSIDE RECORDS SUMMARY | 2023-12-24 11:04 | XMS_ITS | Encounter Summary ---
Author Organization [facility] [place] [address] Care Team Providers Care Senior Data Warehouse Developer Name Role Phone Unavailable Primary Care Provider Unavailabl e Encounter Details Date Type Department Care Team (Late st Contact Info) Description 07/04/2012 [place] [address] Eleno Christian MD [facility] [place] [address] Social History Tobacco Use Types Packs/Day Years [...] AM EST Hospital Encounter Non-[place] [address] Arrived documented as of this encounter Procedures [...] Non-reportable exam Eleno Christian MD [facility] ORD ERABLES documented in this encounter Visit Diagnoses Not on filedocumented in this encounter
--- OUTSIDE RECORDS SUMMARY | 2023-12-24 11:04 | XMS_ITS | Encounter Summary ---
Author Organization [facility] Address [facility] [place] [address] Care Team Providers Care Retail Property Manager Name Role Phone Lolly Oliveira MD Primary Care Provider [phone] Reason for Visit * Auth/Cert (Routine) Specialty Diagnoses / Procedures Referred By Contac t Referred To Contact Diagnoses Left bundle-branch block, unspecified Other cardiomyopathies Left bundle branch block [I44.7]Nonischemic cardiomyopathy [I42.8] Procedures PRG CATH PLMT LEFT HEART CATH & ARTS W/INJ & ANGIO IMG S&I ELECTROPHYSIOLOGY PROCEDURE Lalit Mcmahon MD [facility] [place] [address] [facility] Referral ID Status Reason Start Date Expiration Date Visits Re quested Visits Authorized [id number] 1 1 Encounter Details Date Type Department Care Team (Late st Contact Info) Description 07/23/2022 1:08 PM EDT Anesthesia Event [place] [address] Monae [place] MD [facility] [place] [address] Maria Elena Snyder CRNA [facility] [place] [address] Anesthesia Record Procedure Summary Procedure Name Responsible [...] horizontal; device pocket 07/23/22 1421 by Gina Msos, RN (RETIRED) Peripheral IV Line - Single Lumen 07/23/22; 1307; median cubital vein (antecubital fossa), right; qhbt-nch-fzcscu catheter system; Anatomical Landmarks; 20 gauge; 07/24/22; 0913 07/23/22 1307 by Maria Elena Snyder CRNA 07/24/22 0913 by Alia Frye RN Arterial Line 07/23/22; 1327; radi al artery, right; 20 gauge; Anatomical Landmarks, Guidewire, Ultrasound Guidance; Yes - US guidance used but Image NOT saved; continuous blood pressure monitoring, frequent blood gas measurement; Dominique eSn MD; Sterile Prep, Sterile Gloves; 2; radial [...] 1343; metacarpal vein (top of hand), left; wxza-dhq-xzpsrs catheter system; Anatomical Landmarks; US Not Used; [...] Date: 07/23/22 Room / Location: [facility] A-LAB ROOM 3 / [facility] EP LABS Anesthesia Start: 1308 Anesthesia Stop: 1633 Procedure: ELECTROPHYSIOLOGY PROCEDURE (Left) Diagnosis: Left bundle branch block Nonischemic cardiomyopathy (Left bundle branch block [I44.7]Nonischemic cardiomyopathy [I42.8]) Providers: Lalit Mcmahon MD Responsible Provider: Monae [place] MD Anesthesia Type: general ASA Status: 4 All Anesthesia Providers: Anesthesiologist: Monae [place] MD; Dominique Sen MD REFUND SPECIALIST: Maria Elena Snyder CRNA Vitals Value Taken Time BP 131/46 07/23/22 1700 Temp 36.7 ??C (98.1 ??F) 07/23/22 1627 Pulse 67 07/23/22 1703 Resp 14 07/23/22 1703 SpO2 98 % 07/23/22 1703 Pain Level Vitals shown include unvalidated device data. 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 No prior anesthetic records. Pt states [...] daughter/son and patient who. Plan discussed with REFUND SPECIALIST. Anesthesia Screening documented in this encounter Plan of Treatment Upcoming Encounters Date Type Department Care Team (Late st Contact Info) Description 01/16/2024 10:00 AM [facility] Hospital Encounter [place] [address] Arrived documented as of this [...] mg documented in this encounter Care Teams Retail Property Manager Relationship Specialty Start Date End Date Lolly Oliveira MD [address] [place] [address] PCP - General 07/17/13 documented as of this encounter
--- OUTSIDE RECORDS SUMMARY | 2023-12-24 11:04 | XMS_ITS | Encounter Summary ---
Author Organization [facility] [place] [address] Care Team Providers Care Camera Tuning Engineer Name Role Phone Lolly Oliveira MD Primary Care Provider [phone] Reason for Referral * Consultation (Routine) - Closed Specialty Diagnoses / Procedures Referred By Contact Referred To Contact Electrophysiology / Cardiology Diagnoses Left bundle branch block Cardiomyopathy, unspecified type AT MINIMUM PT NEEDS CONSIDERATION FOR DEFIBRILLATOR, ALSO CANDIDATE FOR RESYNCHRONIZATION THERAPY HER QRS IS >0.16 Lolly Oliveira MD [address] [place] [address] [facility] [address] [place] [id number] Referral ID Status Reason Start Date Expiration Date V isits Requested Visits Authorized [id number] Closed Consult, Test & Treat PCP Updated and/or Approved 04/30/2022 04/30/2023 6 6 Encounter Details Date Type Department Care Team (Latest Contact Info) Description 04/30/2022 Transcribe Orders eDH Incoming Referrals [phone] Lolly Oliveira MD [address] [place], [place] [id number] Left bundle branch block; Cardiomyopathy, unspecified type [...] AM EST Hospital Encounter [place] [address] Arrived Scheduled Referrals Name Type Priority Associated Diagnoses Orde r Schedule Referral to Cardiology Outpatient Referral Routine Left bundle branch block Cardiomyopathy, Unspecified Type Ordered: 04/30/2022 documented as of this encounter Visit Diagnoses Diagnosis Left bundle branch block Other left bundle branch block Cardiomyopathy, unspecified type documented in this encounter Care Teams Camera Tuning Engineer Relationship Specialty Start Date End Date Lolly Oliveira MD [address] [place] [address] PCP - General 07/17/13 documented as of this encounter
--- OUTSIDE RECORDS SUMMARY | 2023-12-24 11:04 | XMS_ITS | Encounter Summary ---
Author Organization Formerly [facility] [place] [address] Care Team Providers Care Costume Specialist Name Role Phone Lolly Oliveira MD Primary Care Provider [phone] Reason for Visit * Reason Comments Follow-up Encounter Details Date Type Department Care Team (Late st Contact Info) Description 05/21/2022 8:00 AM EDT Office Visit Dermatology at [address] [phone] Clay Ramírez MD [address] [facility] [place] [address] Psoriasis, guttate Social History Tobacco Use Types [...] [facility] Non-Invasive [place] [address] Arrived documented as of this encounter Visit Diagnoses Diagnosis Psoriasis, guttate Other psoriasis documented in this encounter Care Teams Costume Specialist Relationship Specialty Start Date End Date Lolly Oliveira MD [address] [place] [address] PCP - General 07/17/13 documented as of this encounter
--- OUTSIDE RECORDS SUMMARY | 2023-12-24 11:04 | XMS_ITS | Encounter Summary ---
Author Organization Formerly [facility] [place] [address] Care Team Providers Care Box Fabricator Name Role Phone Lolly Oliveira MD Primary Care Provider [phone] Reason for Visit * Reason Onset Date Comments Pre Procedure Call 07/01/2022 Encounter Details Date Type Department Care Team (Late st Contact Info) Description 07/01/2022 Telephone Cardiology at [address] [phone] Rosenda Sutton RN Pre Procedure Call Social History Tobacco Use Types Packs/Day Years Used Date Smoking Tobacco: Never Sex and Gender Information Value Date Recorded Sex Assigned at Not on file Gender Identity Not on file Sexual Orientation Not on file documented as of this encounter Miscellaneous Notes * Telephone Encounter - Rosenda Sutton RN - 07/01/2022 9:30 AM EDTSummary: Pre Procedure Call: PROCEDURE TECH implant EP PIPE PRODUCTION WORKER COORDINATION CHECKLIST Patient Name: Luna Mott Patient Performing Medical Lab Technologist: Lalit Mcmahon Referring Provider: Lolly Oliveira Date of Procedure: 07/23/22 Arrival Time/ Case Time: 12:00 pm / 1:00 pm Check In Location: Tool Adjuster Desk 4W Date Patient was Called: 07/01/22 Procedure: PROCEDURE TECH Company: [employer] Type: PROCEDURE TECH-D Laterality: LEFT Orders: Yes Lab Orders: Yes [...] overnight , understands that they will need goat driver on day of discharge Notified pt that Goff catheter may be placed on day of procedure depending on type & duration of case. documented in this encounter Plan of Treatment Upcoming Encounters Date Type Department Care Team (Late st Contact Info) Description 01/16/2024 10:00 AM [facility] Hospital Encounter Non-[place] [address] Arrived documented as of this encounter Visit Diagnoses Not on filedocumented in this encounter Care Teams Box Fabricator Relationship Specialty Start Date End Date Lolly Oliveira MD [address] [place] [address] PCP - General 07/17/13 documented as of this encounter
--- OUTSIDE RECORDS SUMMARY | 2023-12-24 11:04 | XMS_ITS | Encounter Summary ---
[place] [address] Care Team Providers Care Substation Electrician Supervisor Name Role Phone Lolly Oliveira MD Primary Care Provider [phone] Encounter Details Date Type Department Care Team [...] AM EST Hospital Encounter Non-[place] [address] Arrived documented as of this encounter Visit Diagnoses Not on filedocumented in this encounter Care Teams Substation Electrician Supervisor Relationship Specialty Start Date End Date Lolly Oliveira MD [address] [place] [address] PCP - General 07/17/13 documented as of this encounter
--- OUTSIDE RECORDS SUMMARY | 2023-12-24 11:04 | XMS_ITS | Encounter Summary ---
[place] [address] Care Team Providers Care Sampler Tester Name Role Phone Lolly Oliveira MD Primary Care Provider [phone] Encounter Details Date Type Department Care Team [...] AM EST Hospital Encounter [place] [address] Arrived documented as of this encounter Visit Diagnoses Not on filedocumented in this encounter Care Teams Sampler Tester Relationship Specialty Start Date End Date Lolly Oliveira MD [address] [place] [address] PCP - General 07/17/13 documented as of this encounter
--- OUTSIDE RECORDS SUMMARY | 2023-12-24 11:04 | XMS_ITS | Encounter Summary ---
Author Organization [facility] [place] [address] Care Team Providers Care Paleontology Teacher Name Role Phone Lolly Oliveira MD Primary Care Provider [phone] Reason for Visit * Reason Comments Follow-up Encounter Details Date Type Department Care Team (Late st Contact Info) Description 07/02/2022 8:00 AM EDT Office Visit Dermatology at [address] [phone] Clay Ramírez MD [address] [facility] [place] [address] Psoriasis, guttate Social History Tobacco Use Types [...] CARE SERVICES Hospital Encounter Non-Invasive [place] [phone] Arrived documented as of this encounter Visit Diagnoses Diagnosis Psoriasis, guttate Other psoriasis documented in this encounter Care Teams Paleontology Teacher Relationship Specialty Start Date End Date Lolly Oliveira MD [address] [place] [address] PCP - General 07/17/13 documented as of this encounter
--- OUTSIDE RECORDS SUMMARY | 2023-12-24 11:04 | XMS_ITS | Encounter Summary ---
Author Organization [facility] Address [facility] [place] [address] Care Team Providers Care Wood Experimental Mechanic Name Role Phone Lolly Oliveira MD Primary Care Provider [phone] Encounter Details Date Type Department Care Team (Late st Contact Info) Description 01/29/2023 Notes Only Cardiology at [address] [phone] Merle Lin PA [facility] [place] [address] Social History Tobacco Use Types Packs/Day Years Used Date Smoking Tobacco: Never Alcohol Use Standard Drinks/Week Comments Not Currently 0 (1 standard drink = 0.6 oz pur e alcohol) [facility] Inpatient Questions Answer Date Recorded Does [...] pdf document Date of transmission: 01/29/2023 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 MICKEY Villa 01/29/2023 9:06 AM documented in this encounter Plan of Treatment Upcoming Encounters Date Type Department Care Team (Late st Contact Info) Description 01/16/2024 10:00 AM EST Hospital Encounter Non-Invasive [place] [address] Arrived documented as of this encounter Visit Diagnoses Not on filedocumented in this encounter Care Teams Wood Experimental Mechanic Relationship Specialty Start Date End Date Lolly Oliveira MD [address] [place] [address] PCP - General 07/17/13 documented as of this encounter
--- OUTSIDE RECORDS SUMMARY | 2023-12-24 11:04 | XMS_ITS | Encounter Summary ---
Author Organization [facility] [place] [address] Care Team Providers Care Inflatable Buildings Laminator Name Role Phone Lolly Oliveira MD Primary Care Provider [phone] Encounter Details Date Type Department Care Team (Late st Contact Info) Description 06/29/2011 [place] [phone] Eleno Christian MD [facility] [place] [address] Social History Tobacco Use Types Packs/Day Years [...] AM EST Hospital Encounter Non-[place]vasive [place] [phone] Arrived documented as of this encounter Procedures [...] is a Non-reportable exam Eleno Christian MD [facility] FILM LIBRARY ORD ERABLES documented in this encounter Visit Diagnoses Not on filedocumented in this encounter Care Teams Inflatable Buildings Laminator Relationship Specialty Start Date End Date Lolly Oliveira MD [address] [place] [address] PCP - General 07/17/13 documented as of this encounter
--- OUTSIDE RECORDS SUMMARY | 2023-12-24 11:04 | XMS_ITS | Encounter Summary ---
Author Organization [facility] [place] [address] Care Team Providers Care Plastic Cnc Machine Operator Name Role Phone Lolly Oliveira MD Primary Care Provider [phone] Reason for Visit * Auth/Cert (Routine) Specialty Diagnoses / Procedures Referred By Contac t Referred To Contact Diagnoses Left bundle-branch block, unspecified Other cardiomyopathies Left bundle branch block [I44.7]Nonischemic cardiomyopathy [I42.8] Procedures PRG CATH PLMT LEFT HEART CATH & ARTS W/INJ & ANGIO IMG S&I ELECTROPHYSIOLOGY PROCEDURE Lalit Mcmahon MD [facility] [place] [address] [facility] Referral ID Status Reason Start Date Expiration Date Visits Re quested Visits Authorized [id number] 1 1 Encounter Details Date Type Department Care Team (Late st Contact Info) Description 07/23/2022 1:00 PM EDT - 07/23/2022 5:30 PM EDT Surgery [place] [address] Lalit Mcmahon MD [facility] [place] [address] ELECTROPHYSIOLOGY PROCEDURE Social History Tobacco Use Types [...] Luna Mott Patient Age: 71 y.o. Language: Micronesian Race: White Ethnicity: Not nor Admit date: 07/23/2022 Discharge date and time: 07/24/22 Attending Physician: Lalit Mcmahon MD Discharge Physician: Lalit Mcmahon MD Follow-up Recommendations for Providers: - s/p DEPUTY COURT-D implant - post implant QRS 130 ms [...] Operations/Major Procedures: 07/23/22: [facility] DEPUTY COURT-D implant History of Presentation: 71 y.o. female with a history of HFrEF, LBBB, QRS >150, NYHA II who is POD#[address]-D implant ([employer]). Hospital Course: Elective admission for DEPUTY COURT-D implant Admitted post-implant for pain management, telemetry [...] (heart failure with reduced ejection fraction) [I50.20] DEPUTY COURT-D implant Admission Condition: good Indication for Admission: [...] g Refills: 3 fluticasone propionate 50 mcg/actuation [place], Suspension Commonly known as: Flonase 1 spray [...] the incision. Make sure to use a custom clothier (such as a towel) in between the [...] F. The office scheduling phone number is [phone]. ARM MOVEMENT RESTRICTIONS POST-IMPLANT - Do not [...] please call the Cardiac ElectrophysiologyTriage Nurse at [phone], option 3. General Instructions None Discharge References/Attachments None Lalit Mcmahon MD S Cardiac Electrophysiology 07/24/2022 12:33 PM documented in this encounter Discharge Instructions * Patient Instructions* Fadi Nunez MD - 07/24/2022 8:10 AM EDT FINAL ICD/PACEMAKER RECOMMENDATIONS: 1. Standard post implant discharge instructions (see below): 2. Medications as listed above. You may use ice packs over the incision. Make sure to use a custom clothier (such as a towel) in between the [...] F. The office scheduling phone number is [phone]. ARM MOVEMENT RESTRICTIONS POST-IMPLANT - Do not [...] please call the Cardiac ElectrophysiologyTriage Nurse at [phone], option 3. documented in this encounter Medications [...] with spacer fluticasone propionate (Flonase) 50 mcg/actuation [place], Suspension 1 spray by Each Nare route [...] Cardiac Electrophysiology Post-Implant Device Interrogation Luna Mott [id number] 07/24/2022 History: Luna Mott is a 71 y.o. female with a history of HFrEF, LBBB, QRS >150, NYHA II who is POD#[address]-D implant ([employer]). Overall feels well this morning. Ready [...] WOB Neuro- A&Ox3 Device Interrogation: Data ?? Auto Carrier Driver Model # Serial # Generator [employer] [id number] Atrial Lead [employer] [id number] RV Lead [employer] 0672 [id number] LV Lead [employer] [id number] ?? Diagnostics Pacing Mode: DDD 60-130 Underlying Rhythm: [place] Atrial Episodes: None Ventricular Episodes: None FINAL PROGRAMMING: Pacing: Mode Lower rate (ppm) Upper rate (ppm) ?? DDD 60 130 VF: Rate (bpm) #Antitachycardia pacing First shock energy (J) ?? 200 Quick convert 41 VT: 170 Monitor only Monitor only ? Battery and Leads Impedances (ohms) Sensing (mV) Thresholds HV RA RV LV RA RV LV RA RV LV 73 305 617 4000 (LVa) 7.7 13.1 >25 0.4V @ 0.4 ms 0.4V @ 0.4 ms 0.5 V @ 1.0 ms POD#1 CXR: All leads in nominal positioning Impression: 71 y.o. female who is s/p DEPUTY COURT-D implant for LBBB, NYHA II, HFrEF. - [...] ([facility]) Fadi Nunez MD 07/24/2022 Pager: [phone] I met with the patient today and [...] agreement. ? Dr. Lalit Mcmahon, electrophysiology attending ([id number]) * Zaria Wright RN - 07/23/2022 8:28 [...] HF, QRS > 150 ms presents for [address]-D placement. ROS: Denies recent fevers or chills [...] 0.9) flush 5 mL 5 mL Intravenous [id number] ramos MD ??? sodium chloride 0.9 % [...] HF, QRS > 150 ms [address] for [address]-D placement. Backup would be LBBAP lead. Antibiotics: cefazolin Rationales for, intended benefits and potential risk of planned procedures reviewed. The patient indicated understanding and agreement with the plan. Informed consent signed. Procedure checklist completed. Fadi Nunez MD Cardiac Electrophysiology Fellow [facility] Pager [phone] 07/23/2022 I met with the patient today [...] agreement. ? Dr. Lalit Mcmahon, electrophysiology attending ([id number]) documented in this encounter Miscellaneous Notes * Brief Op Note - Lalit Mcmahon MD - 07/23/2022 4:04 PM EDT Brief Operative Note Patient Name: Luna Mott : [id number] MR#: [id number] Case Date: 07/23/2022 Surgeon: Surgeon(s) and Role: [...] EST Hospital Encounter Non-Invasive [place] [address] Arrived Scheduled Orders Name Type Priority Associated Diagnoses Orde r Schedule EKG 12 Lead ECG Routine Cardiac resynchronization therapy defibrillator (DEPUTY COURT-D) in place One Time for 1 Occurrences [...] (Bezet) 522 ms MUSE SYSTEM Calculated R [place] 78 degrees MUSE SYSTEM Calculated T [place] -71 degrees MUSE SYSTEM INTERPRETATION AV dual-paced [...] have questions please contact the health childcare director that requested your imaging first. ? [...] who have questions please contactthe health childcare director that requested your imaging first. Lalit Mcmahon MD IMG DX ORDERABLES * ELECTROPHYSIOLOGY PROCEDURE (07/23/2022 1:11 PM EDT) Anatomical Region Laterality Modality Other Narrative 07/23/2022 4:24 PM EDT Table formatting from the original result was not included. BIVENTRICULAR ICD IMPLANTATION Triage Register Nurse: Lalit Mcmahon MD Fellow: Fadi Nunez [...] lateral branch of the CS in the MICRONESIAN view. This branch was cannulated with a [...] the entire procedure. LEAD AND GENERATOR DATA: Auto Carrier Driver Model # Serial # Generator [employer] [id number] Atrial Lead [employer] 7841 [id number] RV Lead [employer] [id number] [id number] LV Lead [employer] [id number] PACE/SENSE DATA: Sensed wave (mV) Threshold (V) [...] (cGycm2) 300 CONCLUSIONS: Successful implantation of a [employer] biventricular ICD for primary prevention and treatment of symptoms related to congestive heart failure. Follow up in EP clinic in 1-2 months. Procedures performed: new ICD system ( cpt 83946-N5); implant LV lead at time of ICD insertion (cpt 69757) I have read, edited and approve of this report: Lalit Mcmahon MD [facility] Cardiac Electrophysiology 07/23/2022 4:22 PM Procedure Note Lalit Mcmahon MD - 07/23/2022 BIVENTRICULAR ICD IMPLANTATION Triage Register Nurse: Lalit Mcmahon MD Fellow: Fadi Nunez [...] appropriate lateralbranch of the CS in the MICRONESIAN view. This branch was cannulated with a [...] in the entireprocedure. LEAD AND GENERATOR DATA: Auto Carrier Driver Model # Serial # Generator [employer] [id number] Atrial Lead [employer] 7841 [id number] RV Lead [employer] 0672 [id number] LV Lead [employer] [id number] PACE/SENSE DATA: Sensed wave (mV) Threshold (V) [...] (cGycm2) 300 CONCLUSIONS: Successful implantation of a [employer] biventricular ICD forprimary prevention and treatment of symptoms related to congestive heartfailure. Follow up in EP clinic in 1-2 months. Procedures performed: new ICD system ( cpt 22461-P5); implant LV lead attime of ICD insertion (cpt 81804) I have read, edited and approve of this report: Lalit Mcmahon MD S Cardiac Electrophysiology 07/23/2022 4:22 PM Lalit Mcmahon MD EP PROCEDURE ORDERAB LES * POCT Glucose (07/23/2022 12:54 PM EDT) [facility] Signature Glucose, POC 83 65 - 199 mg/dL [facility] Comment: Supplemental ranges: <140 mg/dL before meals <180 mg/dL all other times of the day Blood 07/23/2022 12:5 4 PM EDT 07/23/2022 12:54 PM EDT Lalit Mcmahon MD POINT OF CARE TEST O RDERABLES Performing Organization Address City/[facility]/ZIP Co de Phone Number [facility] [place] [address] * EKG 12 Lead (07/23/2022 12:33 PM EDT) Ventricular rate 72 BPM MUSE SYSTEM Atrial Rate 72 BPM MUSE SYSTEM P-R Interval 158 ms MUSE SYSTEM QRS Duration 176 ms MUSE SYSTEM Q-T Interval 458 ms MUSE SYSTEM QTC Calculated (Bezet) 501 ms MUSE SYSTEM Calculated P [place] 34 degrees MUSE SYSTEM Calculated R [place] 12 degrees MUSE SYSTEM Calculated T [place] -173 degrees MUSE SYSTEM INTERPRETATION Normal sinus rhythm Left bundle branch block Abnormal ECG No previous ECGs available Confirmed by MD Salome, Lalit ([id number]) on 07/23/2022 1:19:03 PM MUSE SYSTEM 07/23/2022 12:3 3 PM EDT 07/23/2022 1:19 PM EDT Lalit Mcmahon MD ECG ORDERABLES Performing Organization Address [facility]/ZIP Co de Phone Number MUSE SYSTEM * Differential, Automated (07/23/2022 11:55 AM EDT) Neutrophil % 62.6 % [facility] Neutrophil Absolute 4.14 1.70 - 6.10 x10(3)/[facility] Lymph % 27.0 % [facility] Lymphocytes Abs 1.8 0.9 - 3.2 x10(3)/[facility] Monocyte % 7.3 % [facility] Monocyte Abs 0.5 0.3 - 0.9 x10(3)/[facility] Eos % 2.3 % [facility] Eosinophils Abs 0.2 0.0 - 0.4 x10(3)/[facility] LAB[facility] Basophil % 0.6 % [facility] Baso Absolute 0.0 0.0 - 0.1 x10(3)/[facility]ATORY Immature Gran % 0.20 % [facility] Comment: Immature granulocytes(IG's)percentage and absolute [...] Lab Lalit Mcmahon MD HEMATOLOGY ORDERABLE S [facility] [place] [address] * Hemogram (07/23/2022 11:55 AM EDT) White Blood Cell 6.6 4.0 - 9.5 x10(3)/[facility] LAB[facility]ATORY Red Blood Cell 4.50 4.00 - 5.21 x10(6)/[facility] Hemoglobin 13.7 11.7 - 15.5 g/dL [facility] Hematocrit 42.5 35.7 - 45.8 % [facility] Mean Cell Volume 94.4 82.6 - 94.4 fL [facility] Mean Cell Hemoglobin 30.4 27.1 - 32.0 pg [facility] Mean Cell Hemoglobin Concentration 32.2 31.7 - 35.0 g/dL [facility] Platelet 193 145 - 357 x10(3)/[facility] RDW Standard Deviation 45.5 37.0 - 46.0 fL [facility] RDW coefficient of variation 13.2 11.5 - 14.1 % [facility] Mean Platelet Volume 9.5 7.6 - 12.9 fL [facility] NRBC% auto 0.0 % [facility] NRBC Absolute 0.000 0.000 - 0.000 x10(3)/[facility] Blood 07/23/2022 11:5 5 AM EDT 07/23/2022 12:07 PM EDT Narrative Resulting Agency Comment Spec In Lab Lalit Mcmahon MD HEMATOLOGY ORDERABLE S [facility] [place] [address] * (ABNORMAL) BMP w/fasting Glucose (07/23/2022 11:55 AM EDT) Glucose Fasting 110(H) 65 - 99 mg/dL [facility] Comment: ?Fasting* Glucose Interpretive Criteria [...] of Diabetes Mellitus, Position Statement from the [place] [employer]. ??Diabetes Care, Volume 33, Supplement 1, Mar 2009 Blood Urea Nitrogen 23(H) 8 - 18 mg/dL [facility] Creatinine 1.07 0.70 - 1.20 mg/dL [facility] Sodium 141 135 - 145 mmol/L [facility] Potassium 4.8 3.5 - 5.0 mmol/L [facility] Comment: Please note: ??Patients with WBC >100,000 may have falsely elevated Potassium levels. ??For accurate Potassium quantification in these patients send serum separator tube (gold top) for subsequent determinations. ??Contact the Clinical Chemistry Laboratory if there are any questions. Chloride 106 98 - 107 mmol/L [facility] Carbon Dioxide 26 22 - 31 mmol/L [facility] Anion Gap 9 5 - 15 mmol/L [facility] Calcium 9.7 8.5 - 10.5 mg/dL [facility] Est Glomerular Filtration Rate 55(L) >=60 mL/min/1. 73 m?? [facility] Comment: This patient's [...] Organization Address [facility] Co de Phone Number [facility] [place] [address] * Prothrombin Time (07/23/2022 11:55 AM EDT) Prothrombin Time 11.7 9.4 - 12.5 sec [facility] International Normalization Ratio 1.0 [facility] Comment: An INR <2.0 indicates [...] MD HEMATOLOGY ORDERABLE S Performing Organization Address City/[facility] Co de Phone Number [facility] [place] [address] documented in this encounter Visit Diagnoses Diagnosis HFrEF (heart failure with reduced ejection fraction)- Primary Left bundle branch block Other left bundle branch block Nonischemic cardiomyopathy Other primary cardiomyopathies Cardiac resynchronization therapy defibrillator (DEPUTY COURT-D) in place Left bundle branch block Other [...] 20 mg, Oral, DAILY, First dose on Ymra 07/23/22 at 1800, Until Discontinued, Routine 1800 [...] Routine documented in this encounter Care Teams Plastic Cnc Machine Operator Relationship Specialty Start Date End Date Lolly Oliveira MD [address] [place] [address] PCP - General 07/17/13 documented as of this encounter
--- OUTSIDE RECORDS SUMMARY | 2023-12-24 11:04 | XMS_ITS | Encounter Summary ---
[place] [address] Care Team Providers Care Aquatics Specialist Name Role Phone Lolly Oliveira MD Primary Care Provider [phone] Encounter Details Date Type Department Care Team (Late st Contact Info) Description 04/09/2022 Refill Dermatology at [address] [address] Nora Meredith, SUPERVISOR [employer]QUE[employer]CTION Social History Tobacco Use Types Packs/Day Years [...] [facility] Encounter Non[place] [address] Arrived documented as of this encounter Visit Diagnoses Not on filedocumented in this encounter Care Teams Aquatics Specialist Relationship Specialty Start Date End Date Lolly Oliveira MD [address] [place] [address] PCP - General 07/17/13 documented as of this encounter
--- OUTSIDE RECORDS SUMMARY | 2023-12-24 11:04 | XMS_ITS | Encounter Summary ---
Author Organization [facility] [place] [address] Care Team Providers Care Knapsack Sprayer Name Role Phone Lolly Oliveira MD Primary Care Provider [phone] Reason for Visit * Reason Onset Date Comments Post Procedure Call 07/30/2022 Encounter Details Date Type Department Care Team (Late st Contact Info) Description 07/30/2022 Notes Only Cardiology at [address] [phone] Rosenda Sutton, RN Post Procedure Call Social [...] 07/30/2022 9:59 AM EDTSummary: Post Procedure Call: TRAIL MAINTENANCE WORKER implant EP RN Post-Procedure Note: Date of [...] Note: Follow-up Recommendations for Providers: - s/p TRAIL MAINTENANCE WORKER-D implant - post implant QRS 130 ms - reviewed post-implant instructions - no medication changes - Follow up in device clinic for wound/device check in ~10 days??([facility]) Wound Care: -Wound will heal [facility] Non[place] [address] Arrived documented as of this encounter Visit Diagnoses Not on filedocumented in this encounter Care Teams Knapsack Sprayer Relationship Specialty Start Date End Date Lolly Oliveira MD [address] [place] [address] PCP - General 07/17/13 documented as of this encounter
--- OUTSIDE RECORDS SUMMARY | 2023-12-24 11:04 | XMS_ITS | Encounter Summary ---
Author Organization [facility] Address [facility] [place] [address] Care Team Providers Care Expander Name Role Phone Lolly Oliveira MD Primary Care Provider [phone] Reason for Visit * Auth/Cert (Routine) Specialty Diagnoses / Procedures Referred By Contac t Referred To Contact Diagnoses Left bundle-branch block, unspecified Other cardiomyopathies Left bundle branch block [I44.7]Nonischemic cardiomyopathy [I42.8] Procedures PRG CATH PLMT LEFT HEART CATH & ARTS W/INJ & ANGIO IMG S&I ELECTROPHYSIOLOGY PROCEDURE Lalit Mcmahon MD [facility] [place] [address] [facility] Referral ID Status Reason Start Date Expiration Date Visits Re quested Visits Authorized [id number] 1 1 Encounter Details Date Type Department Care Team (Latest Contact Info) Description 07/23/2022 11:39 AM EDT - 07/24/2022 10:23 AM EDT Hospital [place] [address] Lalit Mcmahon MD [facility] [place] [address] Left bundle branch block; Nonischemic cardiomyopathy; Cardiac resynchronization therapy defibrillator (SALES ENGINEER [employer]ODU[employer]-D) in place Discharge Disposition: Home Social History [...] Luna Mott Patient Age: 71 y.o. Language: Lithuanian Race: White Ethnicity: Not nor Admit date: 07/23/2022 Discharge date and time: 07/24/22 Attending Physician: Lalit Mcmahon MD Discharge Physician: Lalit Mcmahon MD Follow-up Recommendations for Providers: - s/p SALES ENGINEER [employer]-D implant - post implant QRS 130 ms [...] Solar lentigo Operations/Major Procedures: 07/23/22: [facility] SALES ENGINEER [employer]ODU[employer]-D implant History of Presentation: 71 y.o. female with a history of HFrEF, LBBB, QRS >150, NYHA II who is POD#1 of SALES ENGINEER ENG[employer]ODU[employer]-D implant ([employer]). Hospital Course: Elective admission for SALES ENGINEER [employer]ODU[employer]-D implant Admitted post-implant for pain management, telemetry [...] (heart failure with reduced ejection fraction) [I50.20] SALES ENGINEER [employer]-D implant Admission Condition: good Indication for Admission: [...] g Refills: 3 fluticasone propionate 50 mcg/actuation [place], Suspension Commonly known as: Flonase 1 spray [...] incision. Make sure to use a clothing man (such as a towel) in between the [...] F. The office scheduling phone number is [phone]. ARM MOVEMENT RESTRICTIONS POST-IMPLANT - Do not [...] please call the Cardiac ElectrophysiologyTriage Nurse at [phone], option 3. General Instructions None Discharge References/Attachments [...] incision. Make sure to use a clothing man (such as a towel) in between the [...] F. The office scheduling phone number is [phone]. ARM MOVEMENT RESTRICTIONS POST-IMPLANT - Do not [...] please call the Cardiac ElectrophysiologyTriage Nurse at [phone], option 3. documented in this encounter Medications [...] with spacer fluticasone propionate (Flonase) 50 mcg/actuation [place], Suspension 1 spray by Each Nare route [...] Cardiac Electrophysiology Post-Implant Device Interrogation Luna Mott [id number] 07/24/2022 History: Luna Mott is a 71 y.o. female with a history of HFrEF, LBBB, QRS >150, NYHA II who is POD#1 of SALES ENGINEER [employer]-D implant ([employer]). Overall feels well this morning. Ready [...] WOB Neuro- A&Ox3 Device Interrogation: Data ?? Track Announcer Model # Serial # Generator [employer] [id number] Atrial Lead [employer] [id number] RV Lead [employer] 0672 [id number] LV Lead [employer] [id number] ?? Diagnostics Pacing Mode: DDD 60-130 Underlying Rhythm: [place] Atrial Episodes: None Ventricular Episodes: None FINAL PROGRAMMING: Pacing: Mode Lower rate (ppm) Upper rate (ppm) ?? DDD 60 130 VF: Rate (bpm) #Antitachycardia pacing First shock energy (J) ?? 200 Quick convert 41 VT: 170 Monitor only Monitor only ? Battery and Leads Impedances (ohms) Sensing (mV) Thresholds HV RA RV LV RA RV LV RA RV LV 73 [phone] (LVa) 7.7 13.1 >25 0.4V @ 0.4 ms 0.4V @ 0.4 ms 0.5 V @ 1.0 ms POD#1 CXR: All leads in nominal positioning Impression: 71 y.o. female who is s/p SALES ENGINEER [employer]-D implant for LBBB, NYHA II, HFrEF. - [...] ([facility]) Fadi Nunez MD 07/24/2022 Pager: [phone] I met with the patient today and [...] agreement. ? Dr. Lalit Mcmahon, electrophysiology attending ([id number]) * Zaria Wright RN - 07/23/2022 8:28 [...] HF, QRS > 150 ms presents for SALES ENGINEER [employer]ODU[employer]-D placement. ROS: Denies recent fevers or chills [...] 0.9) flush 5 mL 5 mL Intravenous [id number] ramos MD ??? sodium chloride 0.9 % [...] HF, QRS > 150 ms presents for SALES ENGINEER [employer]-D placement. Backup would be LBBAP lead. Antibiotics: cefazolin Rationales for, intended benefits and potential risk of planned procedures reviewed. The patient indicated understanding and agreement with the plan. Informed consent signed. Procedure checklist completed. Fadi Nunez MD Cardiac Electrophysiology Fellow [facility] Pager [phone] 07/23/2022 I met with the patient today [...] agreement. ? Dr. Lalit Mcmahon, electrophysiology attending ([id number]) documented in this encounter Miscellaneous Notes * Brief Op Note - Lalit Mcmahon MD - 07/23/2022 4:04 PM EDT Brief Operative Note Patient Name: Luna Mott : [id number] MR#: [id number] Case Date: 07/23/2022 Surgeon: Surgeon(s) and Role: [...] AM EST Hospital Encounter [place] [address] Arrived Scheduled Orders Name Type Priority Associated Diagnoses Orde r Schedule EKG 12 Lead ECG Routine Cardiac resynchronization therapy defibrillator (SALES ENGINE[employer]-D) in place One Time for 1 Occurrences [...] (Bezet) 522 ms MUSE SYSTEM Calculated R [place] 78 degrees MUSE SYSTEM Calculated T [place] -71 degrees MUSE SYSTEM INTERPRETATION AV dual-paced [...] have questions please contact the health career development facilitator that requested your imaging first. ? Narrative [...] who have questions please contactthe health career development facilitator that requested your imaging first. Lalit Mcmahon MD IMG DX ORDERABLES * ELECTROPHYSIOLOGY PROCEDURE (07/23/2022 1:11 PM EDT) Anatomical Region Laterality Modality Other Narrative 07/23/2022 4:24 PM EDT Table formatting from the original result was not included. BIVENTRICULAR ICD IMPLANTATION Cell Tuber Machine: Lalit Mcmahon MD Fellow: Fadi Nunez MD Referring physician: Zmazam Boss MD PATIENT HISTORY: Ms. Mott is [...] lateral branch of the CS in the NAURUAN view. This branch was cannulated with a [...] the entire procedure. LEAD AND GENERATOR DATA: Track Announcer Model # Serial # Generator [employer] [id number] Atrial Lead [employer] [id number] [id number] RV Lead [employer] 0672 [id number] LV Lead [employer] [id number] PACE/SENSE DATA: Sensed wave (mV) Threshold (V) [...] (cGycm2) 300 CONCLUSIONS: Successful implantation of a [employer] biventricular ICD for primary prevention and treatment of symptoms related to congestive heart failure. Follow up in EP clinic in 1-2 months. Procedures performed: new ICD system ( cpt 03336-R1); implant LV lead at time of ICD insertion (cpt 51406) I have read, edited and approve of this report: Lalit Mcmahon MD S Cardiac Electrophysiology 07/23/2022 4:22 PM Procedure Note Lalit Mcmahon MD - 07/23/2022 BIVENTRICULAR ICD IMPLANTATION Cell Tuber Machine: Lalit Mcmahon MD Fellow: Fadi Nunez MD [...] appropriate lateralbranch of the CS in the NAURUAN view. This branch was cannulated with a [...] in the entireprocedure. LEAD AND GENERATOR DATA: Track Announcer Model # Serial # Generator [employer] [id number] Atrial Lead [employer] [id number] [id number] RV Lead [employer] 0672 [id number] LV Lead [employer] [id number] [id number] PACE/SENSE DATA: Sensed wave (mV) Threshold (V) [...] (cGycm2) 300 CONCLUSIONS: Successful implantation of a [employer] biventricular ICD forprimary prevention and treatment of symptoms related to congestive heartfailure. Follow up in EP clinic in 1-2 months. Procedures performed: new ICD system ( cpt 73051-U0); implant LV lead attime of ICD insertion (cpt 24069) I have read, edited and approve of this report: Lalit Mcmahon MD [facility] Cardiac Electrophysiology 07/23/2022 4:22 PM Lalit Mcmahon MD EP PROCEDURE ORDERAB LES * POCT Glucose (07/23/2022 12:54 PM EDT) Glucose, POC 83 65 - 199 mg/dL [facility] Comment: Supplemental ranges: <140 mg/dL before meals <180 mg/dL all other times of the day Blood 07/23/2022 12:5 4 PM EDT 07/23/2022 12:54 PM EDT Lalit Mcmahon MD POINT OF CARE TEST O RDERABLES Performing Organization Address [facility] Co de Phone Number [facility] [place] [address] * EKG 12 Lead (07/23/2022 12:33 PM EDT) Ventricular rate 72 BPM MUSE SYSTEM Atrial Rate 72 BPM MUSE SYSTEM P-R Interval 158 ms MUSE SYSTEM QRS Duration 176 ms MUSE SYSTEM Q-T Interval 458 ms MUSE SYSTEM QTC Calculated (Bezet) 501 ms MUSE SYSTEM Calculated P [place] 34 degrees MUSE SYSTEM Calculated R [place] 12 degrees MUSE SYSTEM Calculated T [place] -173 degrees MUSE SYSTEM INTERPRETATION Normal sinus rhythm Left bundle branch block Abnormal ECG No previous ECGs available Confirmed by MD Salome, Lalit ([id number]) on 07/23/2022 1:19:03 PM MUSE SYSTEM 07/23/2022 12:3 3 PM EDT 07/23/2022 1:19 PM EDT Lalit Mcmahon MD ECG ORDERABLES Performing Organization Address [facility] de Phone Number MUSE SYSTEM * Differential, Automated (07/23/2022 11:55 AM EDT) Neutrophil % 62.6 % [facility] Neutrophil Absolute 4.14 1.70 - 6.10 x10(3)/[facility] Lymph % 27.0 % [facility] Lymphocytes Abs 1.8 0.9 - 3.2 x10(3)/[facility] Monocyte % 7.3 % [facility] Monocyte Abs 0.5 0.3 - 0.9 x10(3)/[facility] Eos % 2.3 % [facility] Eosinophils Abs 0.2 0.0 - 0.4 x10(3)/[facility] Basophil % 0.6 % [facility] Baso Absolute 0.0 0.0 - 0.1 x10(3)/[facility] Immature Gran % 0.20 % [facility] Comment: Immature granulocytes(IG's)percentage and absolute count will include metamyelocytes, myelocytes, and promyelocytes. Blood smears from CBCs yielding IG's will be scanned manually for concordance. If this scan disagrees with the automated IG or if promyelocytes are noted, a manual differential will be performed. Immature Gran Absolute 0.01 0.00 - 0.04 x10(3)/[facility] Blood 07/23/2022 11:5 5 AM EDT 07/23/2022 12:07 PM EDT Narrative Resulting Agency Comment Spec In Lab Lalit Mcmahon MD HEMATOLOGY ORDERABLE S [facility] [place] [address] * Hemogram (07/23/2022 11:55 AM EDT) White Blood Cell 6.6 4.0 - 9.5 x10(3)/[facility] Red Blood Cell 4.50 4.00 - 5.21 x10(6)/[facility] Hemoglobin 13.7 11.7 - 15.5 g/dL [facility] Hematocrit 42.5 35.7 - 45.8 % [facility] Mean Cell Volume 94.4 82.6 - 94.4 fL [facility] Mean Cell Hemoglobin 30.4 27.1 - 32.0 pg [facility] Mean Cell Hemoglobin Concentration 32.2 31.7 - 35.0 g/dL [facility] Platelet 193 145 - 357 x10(3)/[facility] RDW Standard Deviation 45.5 37.0 - 46.0 fL [facility] RDW coefficient of variation 13.2 11.5 - 14.1 % [facility] Mean Platelet Volume 9.5 7.6 - 12.9 fL [facility] NRBC% auto 0.0 % [facility] NRBC Absolute 0.000 0.000 - 0.000 x10(3)/mcL [facility] Blood 07/23/2022 11:5 5 AM EDT 07/23/2022 12:07 PM EDT Narrative Resulting Agency Comment Spec In Lab Lalit Mcmahon MD HEMATOLOGY ORDERABLE S [facility] [address] [place] [address] * (ABNORMAL) BMP w/fasting Glucose (07/23/2022 11:55 AM EDT) Glucose Fasting 110(H) 65 - 99 mg/dL [facility] Comment: ?Fasting* Glucose Interpretive [...] of Diabetes Mellitus, Position Statement from the [place] [employer]. ??Diabetes Care, Volume 33, Supplement 1, Mar 2009 Blood Urea Nitrogen 23(H) 8 - 18 mg/dL [facility] Creatinine 1.07 0.70 - 1.20 mg/dL [facility] Sodium 141 135 - 145 mmol/L [facility] Potassium 4.8 3.5 - 5.0 mmol/L [facility] Comment: Please note: ??Patients with WBC >100,000 may have falsely elevated Potassium levels. ??For accurate Potassium quantification in these patients send serum separator tube (gold top) for subsequent determinations. ??Contact the Clinical Chemistry Laboratory if there are any questions. Chloride 106 98 - 107 mmol/L [facility] Carbon Dioxide 26 22 - 31 mmol/L [facility] Anion Gap 9 5 - 15 mmol/L [facility] Calcium 9.7 8.5 - 10.5 mg/dL [facility] Est Glomerular Filtration Rate 55(L) >=60 mL/min/1. 73 m?? [facility] Comment: This patient's estimated [...] Mcmahon MD CHEMISTRY ORDERABLES Performing Organization Address [facility] Co de Phone Number [facility] [place] [address] * Prothrombin Time (07/23/2022 11:55 AM EDT) Prothrombin Time 11.7 9.4 - 12.5 sec [facility] International Normalization Ratio 1.0 [facility] Comment: An INR <2.0 [...] MD HEMATOLOGY ORDERABLE S Performing Organization Address [facility] Co de Phone Number [facility] [place] [address] documented in this encounter Visit Diagnoses Diagnosis HFrEF (heart failure with reduced ejection fraction)- Primary Left bundle branch block Other left bundle branch block Nonischemic cardiomyopathy Other primary cardiomyopathies Cardiac resynchronization therapy defibrillator (SALES ENGINE[employer]-D) in place Left bundle branch block Other [...] Routine documented in this encounter Care Teams Expander Relationship Specialty Start Date End Date Lolly Oliveira MD [address] [place] [address] PCP - General 07/17/13 documented as of this encounter
--- OUTSIDE RECORDS SUMMARY | 2023-12-24 11:04 | XMS_ITS | Encounter Summary ---
Author Organization [facility] [place] [address] Care Team Providers Care Water/Wastewater Engineer Name Role Phone Lolly Oliveira MD Primary Care Provider [phone] Encounter Details Date Type Department Care Team (Late st Contact Info) Description 10/09/2021 Telephone Dermatology at [address] [address] Nora Meredith LPN Social History [...] [facility] [place] [address] Arrived documented as of this encounter Visit Diagnoses Not on filedocumented in this encounter Care Teams Water/Wastewater Engineer Relationship Specialty Start Date End Date Lolly Oliveira MD [address] [place] [address] PCP - General 07/17/13 documented as of this encounter
--- OUTSIDE RECORDS SUMMARY | 2023-12-24 11:04 | XMS_ITS | Encounter Summary ---
Author Organization [facility] [place] [address] Care Team Providers Care Environmental Educator Name Role Phone Lolly Oliveira MD Primary Care Provider [phone] Reason for Referral * Diagnostic Test (Routine) - Closed Specialty Diagnoses / Procedures Referred By Contac t Referred To Contact Radiology Diagnoses Left bundle branch block Nonischemic cardiomyopathy Procedures MRI Cardiac Morphology Function With Flow Velocity Quantification [facility] Contrast MRI Cardiac Morphology Function wwo Contrast Lalit Mcmahon MD [facility] [place] [place] [address] [place] [address] Referral ID Status Reason Start Date Expiration Date V isits Requested Visits Authorized [id number] Closed Specialty Service Requested 05/06/2022 11/07/2023 2 1 Reason for Visit * Diagnostic Test (Routine) - Closed Specialty Diagnoses / Procedures Referred By Contac t Referred To Contact Radiology Diagnoses Left bundle branch block Nonischemic cardiomyopathy Procedures MRI Cardiac Morphology Function With Flow Velocity Quantification o Contrast MRI Cardiac Morphology Function wwo Contrast Lalit Mcmahon MD [facility] [place] [place] [address] [place] [address] Referral ID Status Reason Start Date Expiration Date V isits Requested Visits Authorized [id number] Closed Specialty Service Requested 05/06/2022 11/07/2023 2 1 Encounter Details Date Type Department Care Team (Latest Contact Info) Description 07/14/2022 9:08 AM EDT Hospital Encounter MRI at [facility] [place] [address] Lalit Mcmahon MD [facility] [address] [place] [address] Left bundle branch block; Nonischemic cardiomyopathy Discharge [...] with spacer fluticasone propionate (Flonase) 50 mcg/actuation [place], Suspension 1 spray by Each Nare route [...] Lyle El [facility] [address] Female [phone] (home) No relevant phone numbers on file. Lolly Oliveira MD None Allergies Allergen Reactions ??? Sulfa (Sulfonamide Antibiotics) Date/Time of call: July 07, 2022/11:03 AM/ PREVIOUS MRI SCAN? HEIGHT: WEIGHT: SCHEDULED SCAN: MRI CARDIAC MORPHOLOGY FUNCTION WITH FLOW VELOCITY QUANTIFICATION WWO CONTRAST [[id number]] Order Questions Answers Where will study be [...] ( [place] ) You must have a personal driver present when you check in. This patient has been informed that they require a personal driver to drive them home after this procedure. In the absence of a personal driver, IR will not be able to sedate for your scan. Pt verbalized understanding of these instructions during the pre-procedure education via phone. Yes Name of personal driver: Daughter Phone number: PRIOR SCAN DATE/S SEDATION TYPE SUCCESSFUL 07/14/22 MRI Cardiac Morphology Function with Flow Velocity Quantification wwo Contrast Ativan 1mg x 1 dose Pass Revised 08/03/17 documented in this encounter Plan of Treatment Upcoming Encounters Date Type Department Care Team (Late st Contact Info) Description 01/16/2024 10:00 AM [facility] Hospital Encounter Non-[place]vasive [place] [address] Arrived documented as of this encounter Procedures [...] ? Electronically signed by: Greyson Herron MD, [facility] ([phone]), at 07/15/2022 9:53 AM Narrative 07/15/2022 9:53 [...] mg documented in this encounter Care Teams Environmental Educator Relationship Specialty Start Date End Date Lolly Oliveira MD [address] [place] [address] PCP - General 07/17/13 documented as of this encounter
--- OUTSIDE RECORDS SUMMARY | 2023-12-24 11:04 | XMS_ITS | Encounter Summary ---
Author Organization [facility] [place] [address] Care Team Providers Care Automotive Painter Name Role Phone Lolly Oliveira MD Primary Care Provider [phone] Reason for Visit * Diagnostic Test (Routine) - Closed Specialty Diagnoses / Procedures Referred By Contac t Referred To Contact Radiology Diagnoses Left bundle branch block Nonischemic cardiomyopathy Procedures MRI Cardiac Morphology Function With Flow Velocity Quantification wwo Contrast MRI Cardiac Morphology Function wwo Contrast Lalit Mcmahon MD [facility] [place] [address] [facility] [place] [address] Referral ID Status Reason Start Date Expiration Date V isits Requested Visits Authorized [id number] Closed Specialty Service Requested 05/06/2022 11/07/2023 2 1 Encounter Details Date Type Department Care Team (Latest Contact Info) Description 07/14/2022 9:09 AM EDT - 07/14/2022 11:59 PM EDT Hospital [place] [address] Lalit Mcmahon MD [facility] [place] [place] [address] Discharge Disposition: Home Social History Tobacco Use [...] with spacer fluticasone propionate (Flonase) 50 mcg/actuation [place], Suspension 1 spray by Each Nare route [...] AM EST Hospital Encounter [place] [address] Arrived documented as of this [...] mLs documented in this encounter Care Teams Automotive Painter Relationship Specialty Start Date End Date Lolly Oliveira MD [address] [place] [address] PCP - General 07/17/13 documented as of this encounter
--- OUTSIDE RECORDS SUMMARY | 2023-12-24 11:04 | XMS_ITS | Encounter Summary ---
Author Organization [facility] Address [facility] [place] [address] Care Team Providers Care Sales Representative Name Role Phone Lolly Oliveira MD Primary Care Provider [phone] Encounter Details Date Type Department Care Team (Late st Contact Info) Description 11/11/2022 Orders Only Cardiology at [address] [address] Lalit Mcmahon MD [facility] [place] [address] Nonischemic cardiomyopathy Social History Tobacco Use Types [...] [facility] Hospital Encounter [place] [address] Arrived documented as of this encounter Visit Diagnoses Diagnosis Nonischemic cardiomyopathy Other primary cardiomyopathies documented in this encounter Care Teams Sales Representative Relationship Specialty Start Date End Date Berrian, Lolly M, MD [address] [place] [address] PCP - General 07/17/13 documented as of this encounter
--- OUTSIDE RECORDS SUMMARY | 2023-12-24 11:04 | XMS_ITS | Encounter Summary ---
Author Organization [facility] [place] [address] Care Team Providers Care Defect Cutter Name Role Phone Unavailable Primary Care Provider Unavailabl e Encounter Details Date Type Department Care Team (Late st Contact Info) Description 07/14/2013 External Results XRay at [address] [place] [address] Provider, Scanning Social History Tobacco Use Types [...] Hospital Encounter Non-Invasive Cardiology Lab [facility] [place] [address] Arrived documented as of this encounter Procedures [...]
--- OUTSIDE RECORDS SUMMARY | 2023-12-24 11:04 | XMS_ITS | Encounter Summary ---
Author Organization [facility] [place] [address] Care Team Providers Care Forklift Driver Name Role Phone Lolly Oliveira MD Primary Care Provider [phone] Reason for Visit * Reason Comments Follow-up Encounter Details Date Type Department Care Team (Late st Contact Info) Description 06/06/2021 8:45 AM EDT Office Visit Dermatology at [address] [address] Clay Ramírez MD [address] [facility] [place] [address] Psoriasis, guttate Social History Tobacco Use Types [...] [facility] Hospital Encounter Non-Invasive [place] [address] Arrived documented as of this encounter Visit Diagnoses Diagnosis Psoriasis, guttate Other psoriasis documented in this encounter Care Teams Forklift Driver Relationship Specialty Start Date End Date Lolly Oliveira MD [address] [place] [address] PCP - General 07/17/13 documented as of this encounter
--- OUTSIDE RECORDS SUMMARY | 2023-12-24 11:04 | XMS_ITS | Encounter Summary ---
Author Organization [facility] Address [facility] [place] [address] Care Team Providers Care Fountain Manager Name Role Phone Lolly Oliveira MD Primary Care Provider [phone] Encounter Details Date Type Department Care Team (Late st Contact Info) Description 07/16/2022 Telephone Cardiology at [address] [phone] Lalit Mcmahon MD [facility] [address] Social History Tobacco Use Types Packs/Day Years [...] her nonischemic cardiomyopathy. She is scheduled for JANITOR-D implantation next week and looks forward to the procedure. We will see each other next week. Lalit Mcmahon MD [facility] Cardiac Electrophysiology 07/16/2022 8:52 AM documented in this encounter Plan of Treatment Upcoming Encounters Date Type Department Care Team (Late st Contact Info) Description 01/16/2024 10:00 AM EST Hospital Encounter Non-[place] [address] Arrived documented as of this encounter Visit Diagnoses Not on filedocumented in this encounter Care Teams Fountain Manager Relationship Specialty Start Date End Date Lolly Oliveira MD [address] [place] [address] PCP - General 07/17/13 documented as of this encounter
--- OUTSIDE RECORDS SUMMARY | 2023-12-24 11:04 | XMS_ITS | Encounter Summary ---
Author Organization [facility] [place] [address] Care Team Providers Care Adjustment Supervisor Name Role Phone Lolly Oliveira MD Primary Care Provider [phone] Encounter Details Date Type Department Care Team (Latest Contact Info) Description 01/21/2023 10:00 AM EST - 01/21/2023 11:59 PM EST Hospital Encounter Non-[place] [phone] Discharge Disposition: Home Social History Tobacco Use [...] with spacer fluticasone propionate (Flonase) 50 mcg/actuation [place], Suspension 1 spray by Each Nare route [...] AM EST Hospital Encounter Non-[place] [address] Arrived documented as of this [...] on filedocumented in this encounter Care Teams Adjustment Supervisor Relationship Specialty Start Date End Date Lolly Oliveira MD [address] [place] [address] PCP - General 07/17/13 documented as of this encounter
--- OUTSIDE RECORDS SUMMARY | 2023-12-24 11:04 | XMS_ITS | Encounter Summary ---
Author Organization [facility] [place] [address] Care Team Providers Care Surveyor Rod Helper Name Role Phone Lolly Oliveira MD Primary Care Provider [phone] Encounter Details Date Type Department Care Team (Late st Contact Info) Description 11/16/2022 Telephone Cardiology at [address] [phone] Luna Rousseau, RN Social History Tobacco Use [...] [facility] Hospital Encounter Non-[place] [address] Arrived documented as of this encounter Visit Diagnoses Not on filedocumented in this encounter Care Teams Surveyor Rod Helper Relationship Specialty Start Date End Date Lolly Oliveira MD [address] [place] [address] PCP - General 07/17/13 documented as of this encounter
--- OUTSIDE RECORDS SUMMARY | 2023-12-24 11:04 | XMS_ITS | Encounter Summary ---
Author Organization [facility] [place] [address] Care Team Providers Care Iron Pourer Name Role Phone Lolly Oliveira MD Primary Care Provider [phone] Encounter Details Date Type Department Care Team (Late st Contact Info) Description 04/01/2021 3:30 PM EST Office Visit Dermatology at [address] [phone] Clay Ramírez MD [address], [place] [address] Psoriasis, guttate Social History Tobacco Use Types [...] AM EST Hospital Encounter Non-Invasive [place] [address] Arrived documented as of this encounter Visit Diagnoses Diagnosis Psoriasis, guttate Other psoriasis documented in this encounter Care Teams Iron Pourer Relationship Specialty Start Date End Date Lolly Oliveira MD [address] [place] [address] PCP - General 07/17/13 documented as of this encounter
--- OUTSIDE RECORDS SUMMARY | 2023-12-24 11:04 | XMS_ITS | Encounter Summary ---
Author Organization [facility] [place] [address] Care Team Providers Care Semiautomatic Stitcher Operator Name Role Phone Lolly Oliveira MD Primary Care Provider [phone] Encounter Details Date Type Department Care Team (Latest Contact Info) Description 07/26/2013 9:44 AM EDT - 07/26/2013 11:59 PM EDT Hospital [place] [address] CLINIC, Lolly So MD [address] [place], [place] [id number] Mammographic microcalcification Discharge Disposition: Home Social History [...] AM EST Hospital Encounter [place] [address] Arrived documented as of this encounter Procedures [...] are present on specimen digital X-ray. A [employer]-Stereo 13 Cylinder marker clip was placed. Cranio-caudal [...] mLs documented in this encounter Care Teams Semiautomatic Stitcher Operator Relationship Specialty Start Date End Date Lolly Oliveira MD [address] [place] [address] PCP - General 07/17/13 documented as of this encounter
--- OUTSIDE RECORDS SUMMARY | 2023-12-24 11:04 | XMS_ITS | Encounter Summary ---
[place] [address] Care Team Providers Care Java Technical Manager Name Role Phone Lolly Oliveira MD Primary Care Provider [phone] Encounter Details Date Type Department Care Team [...] EST Hospital Encounter Non-Invasive [place] [address] Arrived documented as of this encounter Visit Diagnoses Not on filedocumented in this encounter Care Teams Java Technical Manager Relationship Specialty Start Date End Date Lolly Oliveira MD [address] [place] [address] PCP - General 07/17/13 documented as of this encounter
--- OUTSIDE RECORDS SUMMARY | 2023-12-24 11:04 | XMS_ITS | Encounter Summary ---
[place] [address] Care Team Providers Care Entertainment Manager Name Role Phone Lolly Oliveira MD Primary Care Provider [phone] Encounter Details Date Type Department Care Team (Latest Contact Info) Description 07/26/2013 9:45 AM EDT - 07/26/2013 11:59 PM EDT Hospital Encounter [place] [address] Mammographic microcalcification Social History Tobacco Use Types [...] AM EST Hospital Encounter Non-[place] [address] Arrived documented as of this encounter Procedures [...] Name: ?? JING ALVARENGA ? Acc #: ?[id number] ?Pt. ? Col Date: ?? 07/26/2013 ? [...] Name: ?? JING ALVARENGA ? Acc #: ?[id number] ?Pt. ? Col Date: ?? 07/26/2013 ? [...] FCD, adenosis, DCIS 07/28/2013 8:29 AM EDT [facility] BREAST STRUCTURE / Unknown 07/26/2013 12:12 PM EDT 07/26/2013 12:12 PM EDT Eleno Christian MD PATHOLOGY/CYTOLOGY O RDERABLES Performing Organization Address City/State/[facility] Co ut Phone Number [facility] [place] [address] * Mammo Specimen Imaging During Biopsy (07/26/2013 [...] radial sclerosing lesion completely excised Procedure Note Elneo Christian MD - 07/28/2013 [facility] [...] microcalcification documented in this encounter Care Teams Entertainment Manager Relationship Specialty Start Date End Date Lolly Oliveira MD [address] [place] [address] PCP - General 07/17/13 documented as of this encounter
--- OUTSIDE RECORDS SUMMARY | 2023-12-24 11:04 | XMS_ITS | Encounter Summary ---
Author Organization [facility] [place] [address] Care Team Providers Care Slot Floor Attendant Name Role Phone Lolly Oliveira MD Primary Care Provider [phone] Encounter Details Date Type Department Care Team (Latest Contact Info) Description 07/18/2013 [place] [phone] Alia Fraire MD [facility] [place] [address] Mammographic microcalcification (Primary Dx) Social History Tobacco [...] AM EST Hospital Encounter Non-[place] [address] Arrived documented as of this encounter Results [...] are present on specimen digital X-ray. A [employer] Eviva-Stereo 13 Cylinder marker clip was placed. [...] calcifications are present on specimendigital X-ray. A [employer] Eviva-Stereo 13 Cylinder marker clip was placed. [...] not layer and, therefore, are not patient accounting representative of milk of calcium. Again, these [...] not layer and, therefore, are not patient accounting representative of milk of calcium. Again, these have an amorphous andpunctate appearance and remain indeterminate. Stereotactic guided biopsy isrecommended. Alia Fraire MD IMG MAMMO ORDERABLES documented in this encounter Visit Diagnoses Diagnosis Mammographic microcalcification- Primary Mammographic microcalcification Mammographic microcalcification Mammographic microcalcification Mammographic microcalcification documented in this encounter Care Teams Slot Floor Attendant Relationship Specialty Start Date End Date Lolly Oliveira MD [address] [place] [address] PCP - General 07/17/13 documented as of this encounter
--- OUTSIDE RECORDS SUMMARY | 2023-12-24 11:04 | XMS_ITS | Encounter Summary ---
Author Organization [facility] [place] [address] Care Team Providers Care Motorcyles Final Inspector Name Role Phone Lolly Oliveira MD Primary Care Provider Reason for Visit * Reason Comments Skin Check Encounter Details Date Type Department Care Team (Late st Contact Info) Description 11/23/2014 10:00 AM EDT Office Visit Dermatology at [address] [address] Clay Ramírez MD [address] [facility] [place] [address] Dermatofibroma; Nevus; Solar lentigo Discharge Disposition: Home [...] [facility]ICAL CENTER Hospital Encounter Non-Invasive [place] [address] Arrived documented as of this encounter Visit Diagnoses Diagnosis Dermatofibroma Benign neoplasm of skin, site unspecified Nevus Benign neoplasm of skin, site unspecified Solar lentigo Other dyschromia documented in this encounter Care Teams Motorcyles Final Inspector Relationship Specialty Start Date End Date Lolly Oliveira MD [address] [place] [address] PCP - General 07/17/13 documented as of this encounter
--- OUTSIDE RECORDS SUMMARY | 2023-12-24 11:04 | XMS_ITS | Encounter Summary ---
Author Organization [facility] [place] [address] Care Team Providers Care Crude Oil Treater Name Role Phone Lolly Oliveira MD Primary Care Provider Reason for Visit * Reason Onset Date Comments Other 07/24/2022 Implanted Cardia c Device Teaching/Education Encounter Details Date Type Department Care Team (Late st Contact Info) Description 07/24/2022 Notes Only Cardiology at [address] [phone] Letha Arroyo Other (Implanted Cardiac Device Teaching/Education) [...] to call the Cardiac Device Clinic at [phone] with any questions. Plan: Post op check: [...] SERVICE UNIT Hospital Encounter Non-Invasive [place] [address] Arrived documented as of this encounter Visit Diagnoses Not on filedocumented in this encounter Care Teams Crude Oil Treater Relationship Specialty Start Date End Date Lolly Oliveira MD [address] [place] [address] PCP - General 07/17/13 documented as of this encounter
--- OUTSIDE RECORDS SUMMARY | 2023-12-24 11:04 | XMS_ITS | Encounter Summary ---
Author Organization [facility] [place] [address] Care Team Providers Care Marketing Specialist Name Role Phone Unavailable Primary Care Provider Unavailabl e Encounter Details Date Type Department Care Team (Late st Contact Info) Description 07/14/2013 [place] [phone] Eleno Christian MD [facility] [address] Social History Tobacco Use Types Packs/Day Years [...] AM EST Hospital Encounter Non-[place] [address] Arrived documented as of this encounter Visit Diagnoses Not on filedocumented in this encounter
--- OUTSIDE RECORDS SUMMARY | 2023-12-24 11:04 | XMS_ITS | Encounter Summary ---
Author Organization [facility] [place] [address] Care Team Providers Care Stain Maker Name Role Phone Lolly Oliveira MD Primary Care Provider [phone] Encounter Details Date Type Department Care Team (Latest Contact Info) Description 07/26/2013 9:45 AM EDT - 07/26/2013 11:59 PM EDT Hospital [place] [address] Mammographic microcalcification Social History Tobacco Use Types [...] AM EST Hospital Encounter Non-Invasive [place] [address] Arrived documented as of this encounter Procedures [...] microcalcification documented in this encounter Care Teams Stain Maker Relationship Specialty Start Date End Date Lolly Oliveira MD [address] [place] [address] PCP - General 07/17/13 documented as of this encounter
--- OUTSIDE RECORDS SUMMARY | 2023-12-24 11:04 | XMS_ITS | Encounter Summary ---
[place] [address] Care Team Providers Care Diesel Technology Instructor Name Role Phone Lolly Oliveira MD Primary Care Provider [phone] Encounter Details Date Type Department Care Team [...] AM EST Hospital Encounter Non[place] [address] Arrived documented as of this encounter Visit Diagnoses Not on filedocumented in this encounter Care Teams Diesel Technology Instructor Relationship Specialty Start Date End Date Lolly Oliveira MD [address] [place] [address] PCP - General 07/17/13 documented as of this encounter
--- OUTSIDE RECORDS SUMMARY | 2023-12-24 11:04 | XMS_ITS | Encounter Summary ---
Author Organization Count Includes [facility] [address] Care Team Providers Care Football Coach Name Role Phone Lolly Oliveira MD Primary Care Provider [phone] Reason for Referral * Diagnostic Test (Routine) - Closed Specialty Diagnoses / Procedures Referred By Contac t Referred To Contact Radiology Diagnoses Left bundle branch block Nonischemic cardiomyopathy Procedures MRI Cardiac Morphology Function With Flow Velocity Quantification wwo Contrast MRI Cardiac Morphology Function wwo Contrast Lalit Mcmahon MD [facility] [place] [address] [place] [address] Referral ID Status Reason Start Date Expiration Date V isits Requested Visits Authorized [id number] Closed Specialty Service Requested 05/06/2022 11/07/2023 2 1 Encounter Details Date Type Department Care Team (Late st Contact Info) Description 05/06/2022 Orders Only Cardiology at [address] [phone] Lalit Mcmahon MD [facility] [place] [address] Left bundle branch block; Nonischemic cardiomyopathy Social [...] AM EST Hospital Encounter Non-Invasive [place] [address] Arrived documented as of this encounter Results [...] cardiomyopathies documented in this encounter Care Teams Football Coach Relationship Specialty Start Date End Date Lolly Oliveira MD [address] [place] [address] PCP - General 07/17/13 documented as of this encounter
--- OUTSIDE RECORDS SUMMARY | 2023-12-24 11:04 | XMS_ITS | Encounter Summary ---
Author Organization [facility] [place] [address] Care Team Providers Care Engineering Lecturer Name Role Phone Lolly Oliveira MD Primary Care Provider [phone] Encounter Details Date Type Department Care Team (Late Contact Info) Description 01/14/2022 Telephone Dermatology at [address] [address] Nora Meredith LPN Social History [...] AM EST Hospital Encounter [place] [address] Arrived documented as of this encounter Visit Diagnoses Not on filedocumented in this encounter Care Teams Engineering Lecturer Relationship Specialty Start Date End Date Lolly Oliveira MD [address] [place] [address] PCP - General 07/17/13 documented as of this encounter
--- OUTSIDE RECORDS SUMMARY | 2023-12-24 11:04 | XMS_ITS | Encounter Summary ---
Author Organization [facility] [place] [address] Care Team Providers Care Slunk Skinner Name Role Phone Lolly Oliveira MD Primary Care Provider [phone] Encounter Details Date Type Department Care Team (Latest Contact Info) Description 07/17/2013 8:40 AM EDT - 07/17/2013 11:59 PM EDT Hospital Encounter XRay at [address] [place] [address] CLINIC, DR [facility] Discharge Disposition: Home Social [...] EST Hospital Encounter Non-Invasive [place] [address] Arrived documented as of this encounter Visit Diagnoses Not on filedocumented in this encounter Care Teams Slunk Skinner Relationship Specialty Start Date End Date Lolly Oliveira MD [address] [place] [address] PCP - General 07/17/13 documented as of this encounter
--- OUTSIDE RECORDS SUMMARY | 2023-12-24 11:04 | XMS_ITS | Encounter Summary ---
Author Organization [facility] [place] [address] Care Team Providers Care Gas Plant Worker Name Role Phone Lolly Oliveira MD Primary Care Provider [phone] Encounter Details Date Type Department Care Team (Latest Contact Info) Description 07/20/2013 9:26 AM EDT - 07/20/2013 11:59 PM EDT Hospital [place] [address] CLINIC, Lolly So MD [address] [place], [place] [id number] Mammographic microcalcification Discharge Disposition: Home Social History [...] AM EST Hospital Encounter Non-[place] [address] Arrived documented as of this encounter Procedures [...] does not layer and, therefore, are not treasury representative of milk of calcium. Again, these [...] does not layer and, therefore, are not treasury representative of milk of calcium. Again, these have an amorphous andpunctate appearance and remain indeterminate. Stereotactic guided biopsy isrecommended. Alia Fraire MD IMG MAMMO ORDERABLES documented in this encounter Visit Diagnoses Diagnosis Mammographic microcalcification documented in this encounter Care Teams Gas Plant Worker Relationship Specialty Start Date End Date Lolly Oliveira MD [address] [place] [address] PCP - General 07/17/13 documented as of this encounter
--- OUTSIDE RECORDS SUMMARY | 2023-12-24 11:04 | XMS_ITS | Encounter Summary ---
[place] [address] Care Team Providers Care Field Crop Farming Supervisor Name Role Phone Lolly Oliveira MD Primary Care Provider [phone] Encounter Details Date Type Department Care Team (Late st Contact Info) Description 07/17/2013 [place] [address] Lolly Oliveira MD [address] [place], [place] [address] Social History Tobacco Use Types Packs/Day Years [...] AM EST Hospital Encounter Non-[place] [address] Arrived documented as of this encounter Procedures Procedure Name Priority Date/Time Associated Diagnosis Comments REQUEST FOR 2ND READ MAMMO Routine 07/17/2013 8:45 AM EDT documented in this encounter Results * Request for 2nd read Mammo (07/17/2013 8:45 AM EDT) Anatomical Region Laterality Modality Other 07/17/2013 8:45 AM EDT Narrative 07/17/2013 3:57 PM EDT INTERPRETATION OF OUTSIDE MAMMOGRAMS (PERFORMED ON 07/06/13 AND 07/14/13) FROM [facility] DATED 07/17/13: ?? DIAGNOSTIC IMAGING SUMMARY: ?? [...] OUTSIDE MAMMOGRAMS (PERFORMED ON 07/06/13 AND 07/14/13) [facility] DATED 07/17/13: DIAGNOSTIC IMAGING SUMMARY: RIGHT [...] in this encounter Care Teams Field Crop Farming Supervisor Relationship Specialty Start Date End Date Lolly Oliveira MD [address] [place] [address] PCP - General 07/17/13 documented as of this encounter
--- OUTSIDE RECORDS SUMMARY | 2023-12-24 11:04 | XMS_ITS | Encounter Summary ---
Author Organization [facility] [place] [address] Care Team Providers Care Conference Coordinator Name Role Phone Lolly Oliveira MD Primary Care Provider [phone] Encounter Details Date Type Department Care Team (Late st Contact Info) Description 07/26/2013 [place] [address] Eleno Christian MD [facility] [place] [address] Social History Tobacco Use Types Packs/Day Years [...] AM EST Hospital Encounter Non-[place] [address] Arrived documented as of this encounter Visit Diagnoses Not on filedocumented in this encounter Care Teams Conference Coordinator Relationship Specialty Start Date End Date Lolly Oliveira MD [address] [place] [address] PCP - General 07/17/13 documented as of this encounter
--- OUTSIDE RECORDS SUMMARY | 2023-12-24 11:04 | XMS_ITS | Encounter Summary ---
Author Organization [facility] [place] [address] Care Team Providers Care Career Services Director Name Role Phone Lolly Oliveira MD Primary Care Provider [phone] Reason for Visit * Reason Comments Psoriasis Encounter Details Date Type Department Care Team (Late st Contact Info) Description 04/09/2022 1:45 PM EST Office Visit Dermatology at [address] [address] Clay Ramírez MD [address] [facility], [place] [address] Psoriasis, guttate Social History Tobacco Use Types [...] AM EST Hospital Encounter Non-[place] [address] Arrived documented as of this encounter Visit Diagnoses Diagnosis Psoriasis, guttate Other psoriasis documented in this encounter Care Teams Career Services Director Relationship Specialty Start Date End Date Lolly Oliveira MD [address] [place] [address] PCP - General 07/17/13 documented as of this encounter
--- OUTSIDE RECORDS SUMMARY | 2023-12-24 11:04 | XMS_ITS | Encounter Summary ---
Author Organization [facility] [place] [address] Care Team Providers Care Horticultural Services Supervisor Name Role Phone Lolly Oliveira MD Primary Care Provider [phone] Encounter Details Date Type Department Care Team (Latest Contact Info) Description 10/23/2022 10:00 AM EDT - 10/23/2022 11:59 PM EDT Hospital Encounter Non-Invasive [place] [address] Discharge Disposition: Home Social History Tobacco Use [...] with spacer fluticasone propionate (Flonase) 50 mcg/actuation [place], Suspension 1 spray by Each Nare route [...] [facility] Hospital Encounter Non-Invasive [place] [address] Arrived documented as of [...] on filedocumented in this encounter Care Teams Horticultural Services Supervisor Relationship Specialty Start Date End Date Lolly Oliveira MD [address] [place] [address] PCP - General 07/17/13 documented as of this encounter
[2023-12-24 13:00] VITALS: BP 127/65; PULSE 69
--- OUTSIDE RECORDS SUMMARY | 2023-12-29 11:02 | XMS_ITS | Encounter Summary ---
Author Organization [facility] [place] [address] Care Team Providers Care Fuel System Maintenance Worker Name Role Phone Lolly Oliveira MD Primary Care Provider [phone] Encounter Details Date Type Department Care Team (Late st Contact Info) Description 03/15/2023 Telephone Cardiology at [address] [address] Saranya Ma Social History Tobacco Use Types [...] her to have an echo done at [facility] prior to her appt withhim there on 05/12/23. Message sent to Dr. Mcmahon asking him to put order in if he would like her to have this done. Saranya Ma Sr. Clinical Procedure [place]/Fork Repairer documented in this encounter Plan of Treatment Upcoming Encounters Date Type Department Care Team (Late st Contact Info) Description 01/16/2024 10:00 AM EST Hospital Encounter Non-Invasive [place] [address] Arrived documented as of this encounter Visit Diagnoses Not on filedocumented in this encounter Care Teams Fuel System Maintenance Worker Relationship Specialty Start Date End Date Lolly Oliveira MD [address] [place] [address] PCP - General 07/17/13 documented as of this encounter
--- OUTSIDE RECORDS SUMMARY | 2023-12-29 11:02 | XMS_ITS | Encounter Summary ---
Author Organization [facility] [place] [address] Care Team Providers Care Open Hearth Furnace Operator Name Role Phone Lolly Oliveira MD Primary Care Provider [phone] Encounter Details Date Type Department Care Team (Latest Contact Info) Description 07/20/2023 10:00 AM EDT - 07/20/2023 11:59 PM EDT Hospital Encounter Non-[place] [phone] Discharge Disposition: Home Social History Tobacco Use [...] with spacer fluticasone propionate (Flonase) 50 mcg/actuation [place], Suspension 1 spray by Each Nare route daily as needed. documented as of this encounter Plan of Treatment Upcoming Encounters Date Type Department Care Team (Late st Contact Info) Description 01/16/2024 10:00 AM [facility] Hospital Encounter Non-[place] [address] Arrived documented as of this encounter Procedures Procedure Name Priority Date/Time Associated Diagnosis Comments PRO ICD INTERROGATION REMOTE UP TO 90 DAYS Routine 05/26/2023 4:31 AM EDT documented in this encounter Results * Cardiac Device Check - Remote (05/26/2023 4:31 AM EDT) Anatomical Region Laterality Modality Other 05/26/2023 4:31 AM EDT Meilza Heath MD IMPLANTABLE CARDIAC DEVICE documented in this encounter Visit Diagnoses Not on filedocumented in this encounter Care Teams Open Hearth Furnace Operator Relationship Specialty Start Date End Date Lolly Oliveira MD [address] [place] [address] PCP - General 07/17/13 documented as of this encounter
--- OUTSIDE RECORDS SUMMARY | 2023-12-29 11:02 | XMS_ITS | Encounter Summary ---
Author Organization Formerly [facility] Address [facility] [place] [address] Care Team Providers Care Pattern Painter Name Role Phone Lolly Oliveira MD Primary Care Provider [phone] Reason for Referral * Diagnostic Test (Routine) - Closed Specialty Diagnoses / Procedures Referred By Contkoki t Referred To Contact Cardiology Diagnoses Nonischemic cardiomyopathy Biventricular ICD (implantable cardioverter-defibrillator) in place Procedures Echocardiogram Transthoracic Lalit Mcmahon MD [facility] [place] [address] Referral ID Status Reason Start Date Expiration Date V isits Requested Visits Authorized [id number] Closed Specialty Service Requested 03/15/2023 09/11/2023 1 1 Encounter Details Date Type Department Care Team (Late st Contact Info) Description 03/15/2023 Orders Only Cardiology at [address] [address] Lalit Mcmahon MD [facility] [place] [address] Nonischemic cardiomyopathy; Biventricular ICD (implantable cardioverter-defibrill ator) [...] AM EST Hospital Encounter [place] [address] Arrived Scheduled Orders Name Type Priority Associated Diagnoses Order Schedule Echocardiogram Transthoracic Echocardiography Routine Nonischemic cardiomyopathy Biventricular ICD (implantable cardioverter-defibr illator) in place Expected: 05/05/2023, Expires: 11/04/2023 documented as of this encounter Visit Diagnoses Diagnosis Nonischemic cardiomyopathy Other primary cardiomyopathies Biventricular ICD (implantable cardioverter-defibrillator) in place documented in this encounter Care Teams Pattern Painter Relationship Specialty Start Date End Date Lolly Oliveira MD [address] [place] [address] PCP - General 07/17/13 documented as of this encounter
--- OUTSIDE RECORDS SUMMARY | 2023-12-29 11:02 | XMS_ITS | Encounter Summary ---
Author Organization [place] [address] Care Team Providers Care Leveling Machine Operator Name Role Phone Lolly Oliveira MD Primary Care Provider [phone] Encounter Details Date Type Department Care Team (Latest Contact Info) Description 10/23/2022 10:00 AM EDT - 10/23/2022 11:59 PM EDT Hospital Encounter [place] [address] Discharge Disposition: Home Social History Tobacco Use [...] with spacer fluticasone propionate (Flonase) 50 mcg/actuation [place], Suspension 1 spray by Each Nare route [...] [facility] Hospital Encounter Non-[place] [address] Arrived documented as of this [...] on filedocumented in this encounter Care Teams Leveling Machine Operator Relationship Specialty Start Date End Date Lolly Oliveira MD [address] [place] [address] PCP - General 07/17/13 documented as of this encounter
--- OUTSIDE RECORDS SUMMARY | 2023-12-29 11:02 | XMS_ITS | Encounter Summary ---
Author Organization [facility]ending [facility] [place] [address] Care Team Providers Care Piano Machine Operator Name Role Phone Lolly Oliveira MD Primary Care Provider [phone] Encounter Details Date Type Department Care Team (Latest Contact Info) Description 04/21/2023 10:00 AM EST - 04/21/2023 11:59 PM EST Hospital Encounter [place] [phone] Discharge Disposition: Home Social History Tobacco Use [...] with spacer fluticasone propionate (Flonase) 50 mcg/actuation [place], Suspension 1 spray by Each Nare route [...] Hospital Encounter Non-[place] [address] Arrived documented as of this [...] on filedocumented in this encounter Care Teams Piano Machine Operator Relationship Specialty Start Date End Date Lolly Oliveira MD [address] [place] [address] PCP - General 07/17/13 documented as of this encounter
--- OUTSIDE RECORDS SUMMARY | 2023-12-29 11:02 | XMS_ITS | Clinical Summary ---
Author Organization [place] [address] Care Team Providers Care Power Wheelchair Mechanic Name Role Phone Lolly Oliveira MD Primary Care Provider [phone] Allergies Active Allergy Reactions Criticality Noted Date [...] spacer Active fluticasone propionate (Flonase) 50 mcg/actuation [place], Suspension 1 spray by Each Nare route [...] PM EDT Hospital Encounter Non-[place] [address] Discharge Disposition: Home from Last [...] AM EST Hospital Encounter Non-Invasive [place] [address] Arrived Health Maintenance Due Date Last Done [...] series) 11/07/2023 Medical Devices Implanted Type Area Tank Cleaning Supervisor Device Identifier Shelf Expiration Date Model / Serial / Lot Bsx: [id number]: [id number]/18/2 023 Implanted: by Lalit Mcmahon MD (Quantity not on file) Defibrillator Chest Wall [employer] [id number] / [id number] / Bsx: [id number]: [id number]/18/2 023 Implanted: by Lalit Mcmahon MD (Quantity not on file) Lead Heart [employer] 4674 / [id number] / Bsx: [id number]: [id number] Implanted: by Lalit Mcmahon MD (Quantity not on file) Lead Heart [employer] 7841 / [id number] / Bsx: [id number]: 234498-7/18/2 023 Implanted: by Lalit Mcmahon MD (Quantity not on file) Lead Heart [employer] 0672 / [id number] / Procedures Procedure Name Priority Date/Time Associated [...] Status decision made by: Patient Care Teams Power Wheelchair Mechanic Relationship Specialty Start Date End Date Lolly Oliveira MD [address] [place] [address] PCP - General 07/17/13
--- OUTSIDE RECORDS SUMMARY | 2023-12-29 11:02 | XMS_ITS | Encounter Summary ---
Author Organization [facility] [place] [address] Care Team Providers Care Elevator Erector Name Role Phone Lolly Oliveira MD Primary Care Provider [phone] Reason for Visit * Reason Onset Date Comments Other 07/24/2022 Implanted Cardia c Device Teaching/Education Encounter Details Date Type Department Care Team (Late st Contact Info) Description 07/24/2022 Notes Only Cardiology at [address] [phone] Letha Arroyo Other (Implanted Cardiac Device Teaching/Education) Social History Tobacco Use Types Packs/Day Years Used Date Smoking Tobacco: Never Alcohol Use Standard Drinks/Week Comments Not Currently 0 (1 standard drink = 0.6 oz pur e alcohol) [facility] Inpatient Questions Answer Date Recorded Does Anyone [...] to call the Cardiac Device Clinic at [phone] with any questions. Plan: Post op check: [...] [facility] Hospital Encounter [place] [address] Arrived documented as of this encounter Visit Diagnoses Not on filedocumented in this encounter Care Teams Elevator Erector Relationship Specialty Start Date End Date Lolly Oliveira MD [address] [place] [address] PCP - General 07/17/13 documented as of this encounter
--- OUTSIDE RECORDS SUMMARY | 2023-12-29 11:02 | XMS_ITS | Encounter Summary ---
Author Organization [facility] Address [address] [place] [address] Care Team Providers Care Puller Over Name Role Phone Lolly Oliveira MD Primary Care Provider [phone] Encounter Details Date Type Department Care Team (Late st Contact Info) Description 02/11/2021 Lab Requisition [facility] Pathology & Laboratory Medicine - [address] [address] Outr Resulting Lab, Provider Social History Tobacco [...] Outr Resulting Lab MICROBIOLOGY - GENERAL ORDERABLES [facility] [address] [place] [address] * COVID-19 TESTING (02/11/2021 8:00 EST) COVID-19 rt-PCR Result Negative Negative 02/12/2021 14:17 EST [facility] Comment: This test [...] was performed using the med SARS-CoV-2 assay ([employer] on the Med 6800 System Performing Lab Med 68[address] [facility] Lab 02/12/2021 14:17 EST [facility] Swab 02/11/2021 8:00 EST 02/11/2021 22:22 EST Provider Outr Resulting Lab MICROBIOLOGY - GENERAL ORDERABLES [facility] [address] [place] [address] documented in this encounter Visit Diagnoses Not on filedocumented in this encounter Care Teams Puller Over Relationship Specialty Start Date End Date Lolly Oliveira MD [address] [place] [address] PCP - General 11/13/08 documented as of this encounter
--- OUTSIDE RECORDS SUMMARY | 2023-12-29 11:02 | XMS_ITS | Encounter Summary ---
Author Organization [facility] Address [address] [place] [address] Care Team Providers Care Field Nurse Name Role Phone Lolly Oliveira MD Primary Care Provider [phone] Encounter Details Date Type Department Care Team (Late st Contact Info) Description 05/27/2021 Lab Requisition [facility] Pathology & Laboratory Medicine - [address] [address] Iamn Moran, DO [address] [place], [place] [id number] Encounter for other general examination Social History [...] BIOPSY/POLYPECTOM Y: - Tubular adenoma. 05/30/2021 13:31 [facility] Attestation By the signature below, the attending physician certifies that they have 1) personally conducted a gross and/or microscopic examination of the described specimen(s), and/or personally interpreted the results of laboratory testing of the described specimen(s), and 2) personally rendered or confirmed the above diagnosis. 05/30/2021 13:31 [facility] at 1331 Clinical History Severe diverticula and polypectomy x1 05/30/2021 13:31 [facility] Gross Description A. Received in formalin labelled with proper patient identification (initials J, K) and colon polyp x1 at 90 cm is a light pineda polypoid tissue measuring 0.2 x 0.2 x 0.2 cm. Submitted intact in A1. MICKEY CARLOS(ASCP) 05/27/2021 19:11 05/30/2021 13:31 [facility] Performing Lab [facility] 05/30/2021 13:31 [facility] Scanned Images 05/30/2021 13:31 [facility] Tissue ENTIRE COLON / Unknown 05/27/2021 11:23 EDT 05/27/2021 16:33 EDT Iman Moran DO PATHOLOGY ORDERABLES [facility] [address] [place] [address] documented in this encounter Visit Diagnoses Diagnosis Encounter for other general examination documented in this encounter Care Teams Field Nurse Relationship Specialty Start Date End Date Lolly Oliveira MD [address] [place] [address] PCP - General 11/13/08 documented as of this encounter
--- OUTSIDE RECORDS SUMMARY | 2023-12-29 11:02 | XMS_ITS | Encounter Summary ---
Author Organization [facility] Address [address] [place] [address] Care Team Providers Care Regenerator Operator Name Role Phone Lolly Oliveira MD Primary Care Provider Encounter Details Date Type Department Care Team (Late st Contact Info) Description 03/06/2003 Results Only [facility] [place] conversion [address] [place] [address] Lolly Oliveira MD [address] [place], [place] [phone] Social History Tobacco Use Types Packs/Day Years [...] Oliveira MD PATHOLOGY ORDERABLES Performing Organization Address City/State/[facility] Co de Phone Number [facility] [address] [place] [address] documented in this encounter Visit Diagnoses Not on filedocumented in this encounter Care Teams Regenerator Operator Relationship Specialty Start Date End Date Lolly Oliveira MD [address] [place] [address] PCP - General 11/13/08 documented as of this encounter
--- OUTSIDE RECORDS SUMMARY | 2023-12-29 11:02 | XMS_ITS | Encounter Summary ---
Author Organization [facility] Address [address] [place] [address] Care Team Providers Care Mortgage Analyst Name Role Phone Lolly Oliveira MD Primary Care Provider [phone] Encounter Details Date Type Department Care Team (Late st Contact Info) Description 04/01/2005 Results Only [facility] [place] conversion [address] [place] [address] Blair Dukes MD [address] [place] [id number] Social History Tobacco Use Types Packs/Day Years [...] ? JING ALVARENGA ? Accession #: ? [id number] ? : ? 1950 (Age: 54) ??F [...] ? Received in Hollande' s fixative labelled [place] and #1 ??terminal ileum bx is a single 0.3 x 0.2 x 0.2 cm tissue, submitted intact as (A). Received in Hollande' s fixative labelled [place] and #2 ??transverse colon bx is a single 0.2 x 0.2 x 0.2 cm tissue, submitted intact as (B). ??(Dr. Lechuga)/[facility] End of Report [facility] 04/01/2005 04/02/2005 15: 24 EST Blair Dukes MD PATHOLOGY ORDERABLES [facility] [address] [place] [address] documented in this encounter Visit Diagnoses Not on filedocumented in this encounter Care Teams Mortgage Analyst Relationship Specialty Start Date End Date Lolly Oliveira MD [address] [place] [address] PCP - General 11/13/08 documented as of this encounter
--- OUTSIDE RECORDS SUMMARY | 2023-12-29 11:02 | XMS_ITS | Clinical Summary ---
Author Organization [facility] Address [address] [place] [address] Care Team Providers Care Seed Cleaner Operator Name Role Phone Lolly Oliveira MD Primary Care Provider [phone] Social History Tobacco Use Types Packs/Day Years [...] COVID-19 Vaccine ( season) 2023 Care Teams Seed Cleaner Operator Relationship Specialty Start Date End Date Lolly Oliveira MD [address] [place], [place] [phone] PCP - General 11/13/08
--- OUTSIDE RECORDS SUMMARY | 2023-12-29 11:02 | XMS_ITS | Encounter Summary ---
Author Organization [facility] Address [address] [place] [address] Care Team Providers Care Blind Escort Name Role Phone Lolly Oliveira MD Primary Care Provider [phone] Encounter Details Date Type Department Care Team (Late st Contact Info) Description 05/29/2002 Results Only [facility] [place] [facility] [address] [place] [address] Silvia Diehl, [address] [place] [phone] Social History Tobacco Use Types Packs/Day Years [...] ? JING MOTT ? Accession #: ? [id number] : ? 1950 (Age: 51) ??F ?Collect Date: ? 05/29/2002 Location: ? [facility] ? Receive Date: ? 05/31/2002 Provider: ?SILVIA DIEHL [facility] DIRECTOR Copy to: ? Specimen/Source: ?ThinPrep Pap Test, [...] Report [facility] 05/29/2002 05/31/2002 Silvia Diehl HOSPITAL DIRECTOR PATHOLOGY ORDERABLES [facility] [address] [place] [address] documented in this encounter Visit Diagnoses Not on filedocumented in this encounter Care Teams Blind Escort Relationship Specialty Start Date End Date Lolly Oliveira MD [address] [place] [address] PCP - General 11/13/08 documented as of this encounter
--- OUTSIDE RECORDS SUMMARY | 2023-12-29 11:02 | XMS_ITS | Encounter Summary ---
Author Organization [facility] Address [address] [place] [address] Care Team Providers Care Criminal Justice Program Director Name Role Phone Lolly Oliveira MD Primary Care Provider [phone] Encounter Details Date Type Department Care Team (Late st Contact Info) Description 04/12/2007 Results Only [facility] [place] conversion [address] [place] [address] Lolly Oliveira MD [address] [place], [place] [phone] Social History Tobacco Use Types Packs/Day Years [...] ? JING ALVARENGA ? Accession #: ? [id number] : ? 1950 (Age: 56) ??F ?Collect Date: ? 04/12/2007 Location: ? [facility] ? Receive Date: ? 04/13/2007 Provider: ?LOLLY OLIVEIRA MD Copy to: ? Specimen/Source: ?ThinPrep Pap Test, Cervix/Endocervix, processed on [employer] ThinPrep Imaging System, with manual evaluation Last [...] Oliveira MD PATHOLOGY ORDERABLES [facility] [address] [place] [address] documented in this encounter Visit Diagnoses Not on filedocumented in this encounter Care Teams Criminal Justice Program Director Relationship Specialty Start Date End Date Lolly Oliveira MD [address] [place] [address] PCP - General 11/13/08 documented as of this encounter
--- OUTSIDE RECORDS SUMMARY | 2023-12-29 11:02 | XMS_ITS | Encounter Summary ---
Author Organization [facility] Address [address] [place] [address] Care Team Providers Care Hop Farmer Name Role Phone Lolly Oliveira MD Primary Care Provider Encounter Details Date Type Department Care Team (Late st Contact Info) Description 04/17/2005 Results Only [facility] [place] conversion [address] [place] [address] Lolly Oliveira MD [address] [place], [place] [phone] Social History Tobacco Use Types Packs/Day Years [...] ? JING ALVARENGA ? Accession #: ? [id number] : ? 1950 (Age: 54) ??F ?Collect Date: ? 04/17/2005 Location: ? [facility] ? Receive Date: ? 04/21/2005 Provider: ?LOLLY OLIVEIRA MD Copy to: ? Specimen/Source: ?ThinPrep Pap Test, Cervix/Endocervix, processed on zumatekPrep Imaging System, with manual evaluation Last Menstrual [...] Oliveira MD PATHOLOGY ORDERABLES [facility] [address] [place] [address] documented in this encounter Visit Diagnoses Not on filedocumented in this encounter Care Teams Hop Farmer Relationship Specialty Start Date End Date Lolly Oliveira MD [address] [place] [address] PCP - General 11/13/08 documented as of this encounter
--- OUTSIDE RECORDS SUMMARY | 2023-12-29 11:02 | XMS_ITS | Encounter Summary ---
Author Organization [facility] [place] [address] Care Team Providers Care Research Staff Member Name Role Phone Lolly Oliveira MD Primary Care Provider [phone] Reason for Visit * Reason Comments Follow-up 8 weeks UVB treatmen t twice weekly Encounter Details Date Type Department Care Team (Late st Contact Info) Description 07/19/2023 11:00 AM EDT Office Visit Dermatology at [address] [phone] Clay Ramírez MD [address], [facility] A DERMATOLOGY [place], [place] [phone] Psoriasis Social History Tobacco Use Types Packs/Day [...] [facility] Hospital Encounter Non-Invasive [place] [address] Arrived documented as of this encounter Visit Diagnoses Diagnosis Psoriasis Other psoriasis documented in this encounter Care Teams Research Staff Member Relationship Specialty Start Date End Date Lolly Oliveira MD [address] [place] [address] PCP - General 07/17/13 documented as of this encounter
--- OUTSIDE RECORDS SUMMARY | 2023-12-29 11:02 | XMS_ITS | Encounter Summary ---
Author Organization [facility] Address [address] [place] [address] Care Team Providers Care Adult Ministries Director Name Role Phone Lolly Oliveira MD Primary Care Provider [phone] Encounter Details Date Type Department Care Team (Late st Contact Info) Description 03/21/2019 Lab Requisition [facility] Pathology & Laboratory Medicine - [address] [address] Unknown, Provider, Social History Tobacco Use Types [...] 211 - 911 pg/mL 03/22/2019 11:52 EST [facility] Blood VENOUS BLOOD / Unknown 03/16/2019 9:25 EST 03/21/2019 21:35 EST Provider Unknown CHEMISTRY & BLOOD GA S ORDERABLES [facility] [address] [place] [address] documented in this encounter Visit Diagnoses Not on filedocumented in this encounter Care Teams Adult Ministries Director Relationship Specialty Start Date End Date Lolly Oliveira MD [address] [place] [address] PCP - General 11/13/08 documented as of this encounter
--- OUTSIDE RECORDS SUMMARY | 2023-12-29 11:02 | XMS_ITS | Data Portability ---
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 Than Its Intended Purpose? Never Information no t available 05/21/2023 How Often In The Past Year Have You Used Other Drugs (for Example, Heroin, Cocaine, Meth, Salvia, Inhalants)? Never [email or web address] Information not available 05/21/2023 Have You Ever Used IV Drugs? No [email or web address] Information not available 05/21/2023 What Matters Most To You? Staying Healthy, Keeping Active. Getting Exercise And Losing Some Weight [email or web address] Information not available 05/21/2023 During The Past Four Weeks Has Your Physical And Emotional Health Limited Your Social Activities With Family And Friends, Neighbors, Or Groups? Not At All [email or web address] Information not available 05/21/2023 During The Past Four Weeks, Was Someone Available To Help You If You Needed And Wanted Help? (For Example, If You [place] Very Nervous, Lonely, Or Blue; Got Sick And Had To Stay In Bed; Needed Someone To Talk To; Needed Help With Daily Chores; Or Needed Help Just Taking Care Of Yourself.) No- Not At All paftzedr46 Information n ot available 05/21/2023 During The Past Four Weeks, What Was The Hardest Physical Activity You Could Do For At Least 2 Minutes? Moderate [email or web address] Information not available 05/21/2023 Can You Get To Places Out Of Walking Distance Without Help? (For Example, Can You Travel Alone On Buses Or Taxis, Or Drive Your Own Car?) Yes [email or web address] Information not available 05/21/2023 Can You Go Shopping For Groceries Or Clothes Without Someone? s Help? Yes [email or web address] Information not available 05/21/2023 Can You Prepare Your Own Meals? Yes [email or web address] Information not available 05/21/2023 Can You Do Your Housework Without Help? Yes [email or web address] Information not available 05/21/2023 Because Of Any Health Problems, Do You Need The Help Of Another Person With Your Personal Care Needs Such As Eating, Bathing, Dressing, Or Getting Around The House? No [email or web address] Information not available 05/21/2023 Can You Handle Your Own Money Without Help? Yes [email or web address] Information not available 05/21/2023 Are You Having Difficulties Driving Your Car? No [email or web address] Information no t available 05/21/2023 Do You Always Fasten Your Seat Belt When You Are In A Car? Yes- Usually [email or web address] Information not available 05/21/2023 How Often During The Past Four Weeks Have You Been Bothered By Any Of The Following Problems? Falling Or Dizzy When Standing Up? Never Information not available 05/21/2023 Sexual Problems? Never Informat ion not available 05/21/2023 Trouble Eating Well? Sometimes [email or web address] Information not available 05/21/2023 Teeth Or Denture Problems? Sometimes [email or web address] Information not available 05/21/2023 Problems Using The Telephone? Never [email or web address] Information not available 05/21/2023 Tiredness Or Fatigue? Sometimes [email or web address] Information not available 05/21/2023 Have You Had 2 Or More Falls Or Sustained An Injury With A Fall In The Last Year? No [email or web address] Information no t available 05/21/2023 Do You Have Difficulty With Walking Or Balance? No [email or web address] Information not available 05/21/2023 Do You Currently Use A Hearing Device? No [email or web address] Information not available 05/21/2023 Do You Currently Have Any Trouble With Your Vision? Yes [email or web address] Information no t available 05/21/2023 Do You Exercise For About 20 Minutes Three Or More Days A Week? Yes- Most Of The Time uodvllla43 Information not available 05/21/2023 Are There Any Safety Concerns In Your Home (see Attached CDC Pamphlet)? No Information not available 05/21/2023 How Often Do You Have Trouble Taking Medicines The Way You Have Been Told To Take Them? I Always Take Them As Prescribed [email or web address] Information not available 05/21/2023 How Confident Are You That You Can Control And Manage Most Of Your Health Problems? Very Confident Information not available 05/21/2023 Do You Currently Have Any Difficulty With Your Hearing? No [email or web address] Information not available 05/21/2023 Date Of Most Recent SBINS 05/21/2023 [email or web address] Information not available 05/21/2023 What Was The Date Of Your Most Recent Tobacco Screening? 09/01/2023 Information not available 09/01/2023 Has Tobacco Cessation Counseling Been Provided? Yes Information not available 09/01/2023 On What Date Was Tobacco Cessation Counseling Provided? 09/01/2023 Information not available 09/01/2023 Do You Or Have You Ever Used Any Other Forms Of Tobacco Or Nicotine? No [email or web address] Information not available 05/21/2023 Sex: Female Functional [...] preservative free, adsorbed 11/03/2018 completed Not Available [facility] 01/15/2023 04:53:39 Tdap 04/12/2007 completed Not Available [facility] 04:53:39 zoster live 06/16/2012 completed Not Available [facility] 01/15/2023 04:53:40 Pneumococcal conjugate PCV 13 09/17/2015 completed Not Available [facility] 01/15/2023 04:53:40 Influenza, high-dose, trivalent, PF 11/26/2017 completed Not Available [facility] 01/15/2023 04:53:41 Td(adult) unspecified formulation 09/30/1992 completed Not Available [facility] 01/15/2023 04:53:41 Influenza, split virus, trivalent, preservative 11/28/2015 completed Not Available [facility] 01/15/2023 04:53:41 Influenza, split virus, trivalent, preservative 01/04/2015 completed Not Available [facility] 01/15/2023 04:53:41 Influenza, split virus, quadrivalent, PF 12/21/2018 completed Not Available [facility] 01/15/2023 04:53:41 zoster recombinant 08/30/2018 completed Not Available [facility] 01/15/2023 04:53:42 zoster recombinant 01/26/2018 completed Not Available [facility] 01/15/2023 04:53:42 Influenza, high-dose, quadrivalent, PF 12/04/2020 completed Not Available [facility] 01/15/2023 04:53:43 Influenza, high-dose, quadrivalent, PF 12/11/2019 completed Not Available [facility] 01/15/2023 04:53:43 Influenza, high-dose, quadrivalent, PF 12/29/2021 completed Not Available [facility] 01/15/2023 04:53:43 COVID-19, mRNA, LNP-S, PF, 100 mcg/0.5mL dose or 50 mcg/0.25mL dose 07/09/2021 completed Not Available [facility] 01/15/2023 04:53:43 COVID-19 vaccine, vector-nr, rS-Ad26, PF, 0.5 mL 05/02/2020 completed Not Available [facility] 01/15/2023 04:53:44 SARS-COV-2 (COVID-19) vaccine, UNSPECIFIED 05/31/2020 completed Not Available [facility] 01/15/2023 04:53:44 SARS-COV-2 (COVID-19) vaccine, UNSPECIFIED 01/03/2021 completed Not Available [facility] 01/15/2023 04:53:44 pneumococcal polysaccharide PPV23 07/05/2014 completed Not Available [facility] 2022 04:53:45 Hep B, unspecified formulation 04/14/1993 completed Not Available [facility] 01/15/2023 04:53:45 Hep B, unspecified formulation 09/30/1992 completed Not Available [facility] 01/15/2023 04:53:46 Hep B, unspecified formulation 10/31/1992 completed Not Available [facility] 01/15/2023 04:53:46 influenza, unspecified formulation 12/11/2009 completed Not Available [facility] 01/15/2023 04:53:47 influenza, unspecified formulation 12/13/2012 completed Not Available [facility] 01/15/2023 04:53:47 influenza, unspecified formulation 12/18/2008 completed Not Available [facility] 01/15/2023 04:53:47 influenza, unspecified formulation 12/19/2010 completed Not Available [facility] 01/15/2023 04:53:47 influenza, unspecified formulation 12/30/2006 completed Not Available [facility] 01/15/2023 04:53:48 influenza, unspecified formulation 01/09/2014 completed Not Available [facility] 01/15/2023 04:53:48 influenza, unspecified formulation 01/26/2008 completed Not Available [facility] 01/15/2023 04:53:48 influenza, unspecified formulation 02/16/2012 completed Not Available [facility] 01/15/2023 04:53:48 Influenza, high-dose, quadrivalent, PF 12/17/2022 completed Not Available [facility] 03/19/2023 05:33:03 COVID-19, mRNA, LNP-S, PF, herminio-sucrose, 30 mcg/0.3 mL 12/28/2022 completed Not Available [facility] 03/19/2023 05:33:03 COVID-19, mRNA, LNP-S, bivalent, PF, 50 mcg/0.5 mL or 25mcg/0.25 mL dose 12/01/2023 completed DENYS Bauer, [facility] 12/20/2023 15:23:33 Respiratory syncytial virus (RSV) vaccine, unspecified 12/01/2023 completed DENYS Bauer [facility] 12/20/2023 15:24:29 influenza, unspecified formulation 12/01/2023 completed DENYS Bauer [facility] 12/20/2023 15:25:14 Past Encounters Encounter ID Performer Location Encounter Start Date Encounter Closed Date Diagnosis/Indication Diagnosis SNOMED-CT Code Diagnosis ICD10 Code [id number] LOLLY CORTEZ MD [address] [address] 05/21/2023 10:03:54 05/21/2023 11:37:49 Onychomycosis 887676361 B35.1 Asthma 654656883 J45.90 9 Cardiomyopathy 75324736 I10 Disorder of hip joint 42 9002511 M12.859 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 Hyperlipidemia 93910908 E78.5 Vulval and /or perineal noninflammatory disorders 617312117 N90.9 Adult heal th examination 276574757 Z00.[id number] [place] [address] 09/01/2023 10:23:16 09/01/2023 13:28:10 Vertigo 873557811 R42 Impacted c erumen of bilateral ears 6140470466 457493 H61.23 [id number] LOLLY CORTEZ MD [facility] [address] [place] [address] 11/26/2023 07:26:08 11/26/2023 08:10:59 Screening mammography 11612967 Z12.31 Adjustment disorder 1722 6007 F43.20 Asthma 852235588 J45.90 9 Essential hypertension 08138758 I10 Guttate psoriasis 555861 00 L40.4 Cardiomyopathy 27593520 I10 Hyperlipidemia 33769717 E78.5 Prediabetes 274160408 R7 3.03 Health Concerns Section Related Observation LastModified by Organization Detai ls LastModified Time None Recorded Concern Status LastModified by Organization Details LastModified Time None Recorded Advance Directives Directive None Recorded Payers Encounter Date Sequence Insurance Name Policy Number Policy Lema Covered Member ID Lema Member ID Guarantor Name 05/21/2023 1 [place] - [place]PO) [id number] Luna Mott [id number] Luna Mott 09/01/2023 1 [place]) [id number] Luna Mott [id number] Luan Mott 11/26/2023 1 [place] - [place]) [id number] Luna Mott [id number] Luna Mott Notes Date Note Type Note Provider Name and Address Organization Details Recorded Time 05/21/2023 text/html HPI Notes: Thais here today for an annual wellness exam MD [address], [place], [address], [facility]. 05/24/2023 18:32:35 09/01/2023 text/html HPI Notes: Luna [...] the name of it. [address], [place], [address], [facility]. 09/01/2023 13:55:07 11/26/2023 text/html HPI Notes: Thais here today for follow-up of cardiomyopathy, obesity MD [address], [place], [address], [facility]. 11/28/2023 09:26:44 OBGyn Episode No OBEpisode recorded.
--- OUTSIDE RECORDS SUMMARY | 2023-12-29 11:02 | XMS_ITS | Encounter Summary ---
Author Organization [facility] [place] [address] Care Team Providers Care Principal Technical Specialist Name Role Phone Lolly Oliveira MD Primary Care Provider [phone] Encounter Details Date Type Department Care Team (Late st Contact Info) Description 05/18/2023 Telephone Dermatology at [address] [address] Nora Meredith LPN Social [...] [facility] [place] [address] Arrived documented as of this encounter Visit Diagnoses Not on filedocumented in this encounter Care Teams Principal Technical Specialist Relationship Specialty Start Date End Date Lolly Oliveira MD [address] [place] [address] PCP - General 07/17/13 documented as of this encounter
--- OUTSIDE RECORDS SUMMARY | 2023-12-29 11:02 | XMS_ITS | Encounter Summary ---
Author Organization [facility] [place] [address] Care Team Providers Care Process Tank Tender Name Role Phone Lolly Oliveira MD Primary Care Provider [phone] Encounter Details Date Type Department Care Team (Late st Contact Info) Description 11/16/2022 Telephone Cardiology at [address] [phone] Luna Rousseau, RN Social History Tobacco Use [...] BP today was 118/57 at CR at [facility]. Pt is going twice a [...] CARE FACILITY Hospital Encounter Non-Invasive [place] [address] Arrived documented as of this encounter Visit Diagnoses Not on filedocumented in this encounter Care Teams Process Tank Tender Relationship Specialty Start Date End Date Lolly Oliveira MD [address] [place] [address] PCP - General 07/17/13 documented as of this encounter
--- OUTSIDE RECORDS SUMMARY | 2023-12-29 11:02 | XMS_ITS | Referral Summary ---
Author Organization [facility] Address [address] [place] [address] Care Team Providers Care Math Specialist Name Role Phone Lolly Oliveira MD Primary Care Provider [phone] Social History Tobacco Use Types Packs/Day Years Used Date Smoking Tobacco: Never Assessed Sex and Gender Information Value Date Recorded Sex Assigned at Not on file Gender Identity Not on file Sexual Orientation Not on file Plan of Treatment Not on file Care Teams Math Specialist Relationship Specialty Start Date End Date Lolly Oliveira MD [address] [place] [address] PCP - General 11/13/08
--- OUTSIDE RECORDS SUMMARY | 2023-12-29 11:02 | XMS_ITS | Encounter Summary ---
Author Organization [facility] Address [address] [place] [address] Care Team Providers Care Bag Bleacher Name Role Phone Lolly Oliveira MD Primary Care Provider [phone] Encounter Details Date Type Department Care Team (Late st Contact Info) Description 06/16/2012 Results Only [facility] Laboratory Services - [facility] ([facility] [address] [place], [place] [phone] Lolly Oliveira MD [address] [place], [place] [phone] Social History Tobacco Use Types Packs/Day Years [...] ? JING ALVARENGA ? Accession #: ? [id number] : ? 1950 (Age: 61) ??F ?Collect [...] MD PATHOLOGY ORDERABLES [facility] [address] [place] [address] documented in this encounter Visit Diagnoses Not on filedocumented in this encounter Care Teams Bag Bleacher Relationship Specialty Start Date End Date Lolly Oliveira MD [address] [place] [address] PCP - General 11/13/08 documented as of this encounter
--- OUTSIDE RECORDS SUMMARY | 2023-12-29 11:02 | XMS_ITS | Encounter Summary ---
Author Organization [facility] [place] [address] Care Team Providers Care International Manager Name Role Phone Lolly Oliveira MD Primary Care Provider [phone] Encounter Details Date Type Department Care Team (Late st Contact Info) Description 05/18/2023 Refill Dermatology at [address] [address] Nora Meredith LPN Social [...] patient. She voiced understanding. Order sent to [facility] drug. documented in this encounter Plan of Treatment Upcoming Encounters Date Type Department Care Team (Late st Contact Info) Description 01/16/2024 10:00 AM EST Hospital Encounter Non-[place]vasive [place] [address] Arrived documented as of this encounter Visit Diagnoses Not on filedocumented in this encounter Care Teams International Manager Relationship Specialty Start Date End Date Lolly Oliveira MD [address] [place] [address] PCP - General 07/17/13 documented as of this encounter
--- OUTSIDE RECORDS SUMMARY | 2023-12-29 11:02 | XMS_ITS | Encounter Summary ---
Author Organization [facility] Address [address] [place] [address] Care Team Providers Care Farm Operations Technical Director Name Role Phone Lolly Oliveira MD Primary Care Provider [phone] Encounter Details Date Type Department Care Team (Late st Contact Info) Description 02/20/2020 Lab Requisition [facility] Pathology & Laboratory Medicine - [address] [address] Outr Resulting Lab, Provider Social History Tobacco [...] in accordance with CLIA regulations, [employer] (CAP) guidelines (May 25, 2019), and FDA guidance (May 06, 2019). This test is only for use under the Food and Drug Administration's Emergency Use Authorization. Swab ENTIRE NASOPHARYNX / Unknown 02/19/2020 16:30 EST 02/20/2020 16:09 EST Provider Outr Resulting Lab MICROBIOLOGY - GENERAL ORDERABLES [facility] [place] * COVID-19 TESTING (02/19/2020 16:30 EST) COVID-19 rt-PCR Result NEGATIVE Negative 02/22/2020 23:41 EST [facility] Comment: 2019-novel Coronavirus (2019-nCoV) not detected [...] in accordance with CLIA regulations, [employer] (CAP) guidelines (May 25, 2019), and FDA guidance (May 06, 2019). This test is only for use under the Food and Drug Administration's Emergency Use Authorization. Performing Lab [facility] 02/22/2020 23:41 EST [facility] Swab 02/19/2020 16:3 0 EST 02/20/2020 16:09 EST Provider Outr Resulting Lab MICROBIOLOGY - GENERAL ORDERABLES [facility] [address] [place] [address] [facility] [place] [place] documented in this encounter Visit Diagnoses Not on filedocumented in this encounter Care Teams Farm Operations Technical Director Relationship Specialty Start Date End Date Lolly Oliveira MD [address] [place] [address] PCP - General 11/13/08 documented as of this encounter
--- OUTSIDE RECORDS SUMMARY | 2023-12-29 11:02 | XMS_ITS | Encounter Summary ---
Author Organization [facility] Address [address] [place] [address] Care Team Providers Care Gun Mechanic Name Role Phone Lolly Oliveira MD Primary Care Provider [phone] Encounter Details Date Type Department Care Team (Late st Contact Info) Description 11/13/2020 Lab Requisition [facility] Pathology & Laboratory Medicine - [address] [address] Outr Resulting Lab, Provider Social History Tobacco [...] [facility] [address] [place] [address] * COVID-19 TESTING (11/13/2020 7:30 EDT) COVID-19 rt-PCR Result Negative Negative 11/14/2020 11:46 EDT [facility] Comment: [...] performed using the med SARS-CoV-2 assay ([employer] on the Med 6800 System Performing Lab Med [address] [facility] Lab 11/14/2020 11:46 EDT [facility] Swab 11/13/2020 7:30 EDT 11/13/2020 20:57 EDT Provider Outr Resulting Lab MICROBIOLOGY - GENERAL ORDERABLES [facility] [address] [place] [address] documented in this encounter Visit Diagnoses Not on filedocumented in this encounter Care Teams Gun Mechanic Relationship Specialty Start Date End Date Lolly Oliveira MD [address] [place] [address] PCP - General 11/13/08 documented as of this encounter
--- OUTSIDE RECORDS SUMMARY | 2023-12-29 11:02 | XMS_ITS | Encounter Summary ---
Author Organization [facility] Address [facility] [place] [address] Care Team Providers Care Jointer Machine Name Role Phone Lolly Oliveira MD Primary Care Provider [phone] Encounter Details Date Type Department Care Team (Late st Contact Info) Description 05/03/2023 Telephone Cardiology at [address] [phone] Lalit Mcmahon MD [facility] [place] [address] Social History Tobacco Use Types Packs/Day Years [...] EST Hospital Encounter Non-Invasive [place] [address] Arrived documented as of this encounter Visit Diagnoses Not on filedocumented in this encounter Care Teams Jointer Machine Relationship Specialty Start Date End Date Lolly Oliveira MD [address] [place] [address] PCP - General 07/17/13 documented as of this encounter
--- OUTSIDE RECORDS SUMMARY | 2023-12-29 11:02 | XMS_ITS | Encounter Summary ---
Author Organization [facility] [place] [address] Care Team Providers Care Tier Truck Driver Name Role Phone Lolly Oliveira MD Primary Care Provider [phone] Encounter Details Date Type Department Care Team (Latest Contact Info) Description 10/18/2023 10:00 AM EDT - 10/18/2023 11:59 PM EDT Hospital Encounter Non[place] [phone] Discharge Disposition: Home Social History Tobacco Use [...] with spacer fluticasone propionate (Flonase) 50 mcg/actuation [place], Suspension 1 spray by Each Nare route daily as needed. documented as of this encounter Plan of Treatment Upcoming Encounters Date Type Department Care Team (Late st Contact Info) Description 01/16/2024 10:00 AM EST Hospital Encounter Non-[place] [address] Arrived documented as of this encounter Procedures [...] on filedocumented in this encounter Care Teams Tier Truck Driver Relationship Specialty Start Date End Date Lolly Oliveira MD [address] [place] [address] PCP - General 07/17/13 documented as of this encounter
--- OUTSIDE RECORDS SUMMARY | 2023-12-29 11:02 | XMS_ITS | Encounter Summary ---
Author Organization [facility] Address [address] [place] [address] Care Team Providers Care Switchbox Assembler Name Role Phone Lolly Oliveira MD Primary Care Provider [phone] Encounter Details Date Type Department Care Team (Late st Contact Info) Description 05/02/2004 Results Only [facility] [address] [place] [address] Lolly Oliveira MD [address] [place], [place] [id number] Social History Tobacco Use Types Packs/Day Years [...] 68. [facility] Report Status Final [id number] [facility] 05/02/2004 9:32 EST 05/10/2004 9:32 EST Lolly Oliveira MD MICROBIOLOGY - GENER AL ORDERABLES [facility] [address] [place] [address] * CYTOPATHOLOGY (05/02/2004 0:00 EST) Pathology Report: CYTOPATHOLOGY REPORT Reports generated via electronic interface contain original data; however they are lacking the format of the original report. Caution should be taken when reading/interpreti ng unformatted reports. Name: ? JING ALVARENGA ? Accession #: ? [id number] : ? 1950 (Age: 53) ??F ?Collect [...] City/State/[facility] Co de Phone Number [facility] [address] [place] [address] documented in this encounter Visit Diagnoses Not on filedocumented in this encounter Care Teams Switchbox Assembler Relationship Specialty Start Date End Date Lolly Oliveira MD [address] [place] [address] PCP - General 11/13/08 documented as of this encounter
--- OUTSIDE RECORDS SUMMARY | 2023-12-29 11:02 | XMS_ITS | Encounter Summary ---
Author Organization [facility] [place] [address] Care Team Providers Care Entry Level Drafter Name Role Phone Lolly Oliveira MD Primary Care Provider [phone] Encounter Details Date Type Department Care Team (Latest Contact Info) Description 01/21/2023 10:00 AM EST - 01/21/2023 11:59 PM EST Hospital Encounter Non-[place] [phone] Discharge Disposition: Home Social History Tobacco Use [...] with spacer fluticasone propionate (Flonase) 50 mcg/actuation Marshall, Suspension 1 spray by Each Nare route [...] AM EST Hospital Encounter Non-[place] [address] Arrived documented as of this [...] on filedocumented in this encounter Care Teams Entry Level Drafter Relationship Specialty Start Date End Date Lolly Oliveira MD [address] [place] [address] PCP - General 07/17/13 documented as of this encounter
--- OUTSIDE RECORDS SUMMARY | 2023-12-29 11:02 | XMS_ITS | Encounter Summary ---
Author Organization [facility] Address [facility] [place] [address] Care Team Providers Care Culinary Chef Name Role Phone Lolly Oliveira MD Primary Care Provider [phone] Encounter Details Date Type Department Care Team (Late st Contact Info) Description 11/11/2022 Orders Only Cardiology at [address] [phone] Lalit Mcmahon MD [facility] [place] [address] Nonischemic cardiomyopathy Social History Tobacco Use Types [...] [facility] Hospital Encounter Non[place] [address] Arrived documented as of this encounter Visit Diagnoses Diagnosis Nonischemic cardiomyopathy Other primary cardiomyopathies documented in this encounter Care Teams Culinary Chef Relationship Specialty Start Date End Date Berrian, Lolly M, MD [address] [place] [address] PCP - General 07/17/13 documented as of this encounter
--- OUTSIDE RECORDS SUMMARY | 2023-12-29 11:02 | XMS_ITS | Encounter Summary ---
Author Organization [facility] [place] [address] Care Team Providers Care Lead Process Engineer Name Role Phone Lolly Oliveira MD Primary Care Provider [phone] Encounter Details Date Type Department Care Team [...] AM EST Hospital Encounter Non-[place] [address] Arrived documented as of this encounter Visit Diagnoses Not on filedocumented in this encounter Care Teams Lead Process Engineer Relationship Specialty Start Date End Date Lolly Oliveira MD [address] [place] [address] PCP - General 07/17/13 documented as of this encounter
--- OUTSIDE RECORDS SUMMARY | 2023-12-29 11:02 | XMS_ITS | Encounter Summary ---
Author Organization [facility] [place] [address] Care Team Providers Care Research Rn Spec Name Role Phone Lolly Oliveira MD Primary Care Provider [phone] Encounter Details Date Type Department Care Team (Late st Contact Info) Description 03/17/2023 Telephone Cardiology at [address] [phone] Saranya Ma Social History Tobacco Use Types Packs/Day Years Used Date Smoking Tobacco: Never Alcohol Use Standard Drinks/Week Comments Not Currently 0 (1 standard drink = 0.6 oz pur e alcohol) [facility] Inpatient Questions Answer Date Recorded Does [...] EST Echo order faxed to [facility] at [phone]. No Prior auth needed. Ref #:[id number]. Saranya Ma Sr. Clinical Procedure Parker/Service Captain documented in this encounter Plan of Treatment Upcoming Encounters Date Type Department Care Team (Late st Contact Info) Description 01/16/2024 10:00 AM [facility] Hospital Encounter Non-[place] [address] Arrived documented as of this encounter Visit Diagnoses Not on filedocumented in this encounter Care Teams Research Rn Spec Relationship Specialty Start Date End Date Lolly Oliveira MD [address] [place] [address] PCP - General 07/17/13 documented as of this encounter
--- OUTSIDE RECORDS SUMMARY | 2023-12-29 11:02 | XMS_ITS | Encounter Summary ---
Author Organization [facility] Address [address] [place] [address] Care Team Providers Care Woodenware Assembler Name Role Phone Lolly Oliveira MD Primary Care Provider [phone] Encounter Details Date Type Department Care Team (Late st Contact Info) Description 04/25/2009 Orders Only [facility] Laboratory Services - [facility] ([facility]) [address] [place], [place] [phone] Lolly Oliveira MD [address] [place], [place] [phone] Social History Tobacco Use Types Packs/Day Years [...] ? JING ALVARENGA ? Accession #: ? [id number] ? : ? 1950 (Age: 58) ??F [...] Lolly Oliveira MD PATHOLOGY ORDERABLES [facility] [address] [place] [address] documented in this encounter Visit Diagnoses Not on filedocumented in this encounter Care Teams Woodenware Assembler Relationship Specialty Start Date End Date Lolly Oliveira MD [address] [place] [address] PCP - General 11/13/08 documented as of this encounter
--- OUTSIDE RECORDS SUMMARY | 2023-12-29 11:02 | XMS_ITS | Encounter Summary ---
Author Organization [facility] Address [facility] [place] [address] Care Team Providers Care Elevator Installer Name Role Phone Lolly Oliveira MD Primary Care Provider [phone] Encounter Details Date Type Department Care Team (Late st Contact Info) Description 01/29/2023 Notes Only Cardiology at [address] [address] Merle Lin PA [facility] [place] [address] Social History Tobacco Use Types Packs/Day Years [...] pdf document Date of transmission: 01/29/2023 Device channel partners: BSI Device type: PSYCHOMETRIC EXAMINER-D Presenting rhythm: /RVP/LVP AP 21% Right [facility] 100% Left [facility]: 100% Battery: 10.5 years HeartLogic Index rising in setting of increasing S3 intensity, increasing respiratory rate, increasing night heart rate, and increasing mean heart rate. MICKEY Villa 01/29/2023 9:06 AM documented in this encounter Plan of Treatment Upcoming Encounters Date Type Department Care Team (Late st Contact Info) Description 01/16/2024 10:00 AM EST Hospital Encounter Non-Invasive [place] [address] Arrived documented as of this encounter Visit Diagnoses Not on filedocumented in this encounter Care Teams Elevator Installer Relationship Specialty Start Date End Date Lolly Oliveira MD [address] [place] [address] PCP - General 07/17/13 documented as of this encounter
--- OUTSIDE RECORDS SUMMARY | 2023-12-29 11:02 | XMS_ITS | Encounter Summary ---
Author Organization [facility] [place] [address] Care Team Providers Care Curve Cleaner Name Role Phone Lolly Oliveira MD Primary Care Provider [phone] Reason for Visit * Reason Onset Date Comments Post Procedure Call 07/30/2022 Encounter Details Date Type Department Care Team (Late st Contact Info) Description 07/30/2022 Notes Only Cardiology at [address] [phone] Rosenda Sutton, RN Post Procedure Call Social History Tobacco Use Types Packs/Day Years Used Date Smoking Tobacco: Never Alcohol Use Standard Drinks/Week Comments Not Currently 0 (1 standard drink = 0.6 oz pur e alcohol) [facility] Inpatient Questions Answer Date Recorded [...] 07/30/2022 9:59 AM EDTSummary: Post Procedure Call: BURGLAR ALARM OPERATOR implant EP RN Post-Procedure Note: Date of Follow Up Call: 07/30/2022 Spoke With: Patient Procedure Type (choose all that apply): ICD Performing MIRLANDE Mcmahon Date of Procedure: 07/23/2022 Date of Discharge: 07/24/2022 Follow Up EP Visit Scheduled?: No No Follow Up Visit Reason: Follow up outside Outside Location: [facility] Date of Non EP Visit: 08/12/2022 [...] Note: Follow-up Recommendations for Providers: - s/p BURGLAR ALARM OPERATOR-D implant - post implant QRS 130 ms - reviewed post-implant instructions - no medication changes - Follow up in device clinic for wound/device check in ~10 days??([facility]) Wound Care: -Wound will heal in [...] [place] Hospital Encounter Non-Invasive [place] [address] Arrived documented as of this encounter Visit Diagnoses Not on filedocumented in this encounter Care Teams Curve Cleaner Relationship Specialty Start Date End Date Lolly Oliveira MD [address] [place] [address] PCP - General 07/17/13 documented as of this encounter
--- OUTSIDE RECORDS SUMMARY | 2023-12-29 11:02 | XMS_ITS | Encounter Summary ---
Author Organization [facility] Address [address] [place] [address] Care Team Providers Care Testing Projects Administrator Name Role Phone Unavailable Primary Care Provider Unavailabl e Encounter Details Date Type Department Care Team (Late st Contact Info) Description 11/07/2008 Orders Only [facility] Laboratory Services - [facility] ([facility]) [address] [place] [address] Kenneth Parker MD [address] [place] [address] Social History Tobacco Use Types Packs/Day Years [...] ? LYLE, JING ? Accession #: ? [id number] ? : ? 1950 (Age: 58) ??F [...] Parker MD PATHOLOGY ORDERABLES Performing Organization Address City/State/[facility] Co de Phone Number [facility] [address] [place] [address] documented in this encounter Visit Diagnoses Not on filedocumented in this encounter
--- OUTSIDE RECORDS SUMMARY | 2023-12-29 11:03 | XMS_ITS | Encounter Summary ---
Author Organization [facility] Address [place] [address] Care Team Providers Care Polish Maker Name Role Phone Lolly Oliveira MD Primary Care Provider [phone] Reason for Visit * Auth/Cert (Routine) Specialty Diagnoses / Procedures Referred By Contac t Referred To Contact Diagnoses Left bundle-branch block, unspecified Other cardiomyopathies Left bundle branch block [I44.7]Nonischemic cardiomyopathy [I42.8] Procedures PRG CATH PLMT LEFT HEART CATH & ARTS W/INJ & ANGIO IMG S&I ELECTROPHYSIOLOGY PROCEDURE Lalit Mcmahon MD [facility] [address] [facility] Referral ID Status Reason Start Date Expiration Date Visits Re quested Visits Authorized [id number] 1 1 Encounter Details Date Type Department Care Team (Late st Contact Info) Description 07/23/2022 1:08 PM EDT Anesthesia [place] [address] Monae Gonzalez MD [facility] [place] [address] Maria Elena Snyder CRNA [facility] [place] [address] Anesthesia Record Procedure Summary Procedure Name Responsible [...] 1307; median cubital vein (antecubital fossa), right; qsbt-dpp-poxzhb catheter system; Anatomical Landmarks; 20 gauge; 07/24/22; [...] 1343; metacarpal vein (top of hand), left; drwp-zjt-dwbnyi catheter system; Anatomical Landmarks; US Not Used; [...] Date: 07/23/22 Room / Location: [facility] A-LAB ROOM 3 / [facility] EP LABS Anesthesia Start: 1308 Anesthesia Stop: 1633 Procedure: ELECTROPHYSIOLOGY PROCEDURE (Left) Diagnosis: Left bundle branch block Nonischemic cardiomyopathy (Left bundle branch block [I44.7]Nonischemic cardiomyopathy [I42.8]) Providers: Lalit Mcmahon MD Responsible Provider: Monae Gonzalez MD Anesthesia Type: general ASA Status: 4 All Anesthesia Providers: Anesthesiologist: Monae Gonzalez MD; Dominique Sen MD INSULATOR TESTER: Maria Elena Snyder CRNA Vitals Value Taken Time BP 131/46 07/23/22 1700 Temp 36.7 ??C (98.1 ??F) 07/23/22 1627 Pulse 67 07/23/22 1703 Resp 14 07/23/22 1703 SpO2 98 % 07/23/22 1703 Pain Level Vitals shown include unvalidated device data. Patient Location: PACU/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 No prior anesthetic records. Pt states that [...] daughter/son and patient who. Plan discussed with INSULATOR TESTER. Anesthesia Screening documented in this encounter Plan of Treatment Upcoming Encounters Date Type Department Care Team (Late st Contact Info) Description 01/16/2024 10:00 AM [facility] Hospital Encounter [place] [address] Arrived documented as of this [...] mg documented in this encounter Care Teams Polish Maker Relationship Specialty Start Date End Date Lolly Oliveira MD [address] [place] [address] PCP - General 07/17/13 documented as of this encounter
--- OUTSIDE RECORDS SUMMARY | 2023-12-29 11:03 | XMS_ITS | Encounter Summary ---
Author Organization [facility] [address] Care Team Providers Care Construction Technology Instructor Name Role Phone Lolly Oliveira MD Primary Care Provider [phone] Reason for Visit * Diagnostic Test (Routine) - Closed Specialty Diagnoses / Procedures Referred By Contac t Referred To Contact Radiology Diagnoses Left bundle branch block Nonischemic cardiomyopathy Procedures MRI Cardiac Morphology Function With Flow Velocity Quantification wwo Contrast MRI Cardiac Morphology Function wwo Contrast Lalit Mcmahon MD [facility] [address] [facility] [place] [address] Referral ID Status Reason Start Date Expiration Date V isits Requested Visits Authorized [id number] Closed Specialty Service Requested 05/06/2022 11/07/2023 2 1 Encounter Details Date Type Department Care Team (Latest Contact Info) Description 07/14/2022 9:09 AM EDT - 07/14/2022 11:59 PM EDT Hospital [place] [address] Lalit Mcmahon MD [facility] [place] [address] Discharge Disposition: Home Social History Tobacco Use [...] with spacer fluticasone propionate (Flonase) 50 mcg/actuation Sweet, Suspension 1 spray by Each Nare route [...] AM EST Hospital Encounter Non-Invasive [place] [address] Arrived documented as of [...] mLs documented in this encounter Care Teams Construction Technology Instructor Relationship Specialty Start Date End Date oLlly Oliveira MD [address] [place] [address] PCP - General 07/17/13 documented as of this encounter
--- OUTSIDE RECORDS SUMMARY | 2023-12-29 11:03 | XMS_ITS | Encounter Summary ---
Author Organization [facility] [place] [address] Care Team Providers Care Solar Sales Ambassador Name Role Phone Unavailable Primary Care Provider Unavailabl e Encounter Details Date Type Department Care Team (Late st Contact Info) Description 07/14/2013 Orders [place] [phone] Eleno Christian MD [facility] [place] [address] Social History Tobacco Use Types Packs/Day Years [...] AM EST Hospital Encounter Non-In[place] [address] Arrived documented as of this encounter Visit Diagnoses Not on filedocumented in this encounter
--- OUTSIDE RECORDS SUMMARY | 2023-12-29 11:03 | XMS_ITS | Encounter Summary ---
Author Organization [facility] [place] [address] Care Team Providers Care Credit Card Control Clerk Name Role Phone Lolly Oliveira MD Primary Care Provider [phone] Encounter Details Date Type Department Care Team (Late st Contact Info) Description 10/09/2021 Telephone Dermatology at [address] [address] Nora Meredith LPN Social History [...] [facility] Hospital Encounter Non-[place] [address] Arrived documented as of this encounter Visit Diagnoses Not on filedocumented in this encounter Care Teams Credit Card Control Clerk Relationship Specialty Start Date End Date Lolly Oliveira MD [address] [place] [address] PCP - General 07/17/13 documented as of this encounter
--- OUTSIDE RECORDS SUMMARY | 2023-12-29 11:03 | XMS_ITS | Encounter Summary ---
Author Organization [place] [address] Care Team Providers Care Copy Operator Name Role Phone Lolly Oliveira MD Primary Care Provider Encounter Details Date Type Department Care Team (Latest Contact Info) Description 07/20/2013 9:26 AM EDT - 07/20/2013 11:59 PM EDT Hospital [place] [phone] CLINIC, Lolly So MD [address] [place], [place] [id number] Mammographic microcalcification Discharge Disposition: Home Social History [...] AM EST Hospital Encounter Non-[place] [address] Arrived documented as of this encounter Procedures [...] does not layer and, therefore, are not guest relations representative of milk of calcium. Again, these [...] does not layer and, therefore, are not guest relations representative of milk of calcium. Again, these have an amorphous andpunctate appearance and remain indeterminate. Stereotactic guided biopsy isrecommended. Alia Fraire MD IMG MAMMO ORDERABLES documented in this encounter Visit Diagnoses Diagnosis Mammographic microcalcification documented in this encounter Care Teams Copy Operator Relationship Specialty Start Date End Date Lolly Oliveira MD [address] [place] [address] PCP - General 07/17/13 documented as of this encounter
--- OUTSIDE RECORDS SUMMARY | 2023-12-29 11:03 | XMS_ITS | Encounter Summary ---
Author Organization Replaced By [facility] Address [facility] [place] [address] Care Team Providers Care Occupational Therapy Manager Name Role Phone Lolly Oliveira MD Primary Care Provider [phone] Reason for Visit * Auth/Cert (Routine) Specialty Diagnoses / Procedures Referred By Contac t Referred To Contact Diagnoses Left bundle-branch block, unspecified Other cardiomyopathies Left bundle branch block [I44.7]Nonischemic cardiomyopathy [I42.8] Procedures PRG CATH PLMT LEFT HEART CATH & ARTS W/INJ & ANGIO IMG S&I ELECTROPHYSIOLOGY PROCEDURE Lalit Mcmahon MD [facility] [address] [facility] Referral ID Status Reason Start Date Expiration Date Visits Re quested Visits Authorized [id number] 1 1 Encounter Details Date Type Department Care Team (Latest Contact Info) Description 07/23/2022 11:39 AM EDT - 07/24/2022 10:23 AM EDT Hospital Encounter [place] [id number] Lalit Mcmahon MD [facility] [place] [address] Left bundle branch block; Nonischemic cardiomyopathy; Cardiac resynchronization therapy defibrillator (NURSE WOUND-D) in place Discharge Disposition: Home Social History [...] Luna Mott Patient Age: 71 y.o. Language: Armenian Race: White Ethnicity: Not nor Admit date: 07/23/2022 Discharge date and time: 07/24/22 Attending Physician: Lalit Mcmahon MD Discharge Physician: Lalit Mcmahon MD Follow-up Recommendations for Providers: - s/p NURSE WOUND-D implant - post implant QRS 130 ms [...] ??? Solar lentigo Operations/Major Procedures: 07/23/22: [facility] NURSE WOUND-D implant History of Presentation: 71 y.o. female with a history of HFrEF, LBBB, QRS >150, NYHA II who is POD#1 of NURSE WOUND-D implant ([employer]). Hospital Course: Elective admission for NURSE WOUND-D implant Admitted post-implant for pain management, telemetry [...] (heart failure with reduced ejection fraction) [I50.20] NURSE WOUND-D implant Admission Condition: good Indication for Admission: [...] g Refills: 3 fluticasone propionate 50 mcg/actuation [place], Suspension Commonly known as: Flonase 1 spray [...] the incision. Make sure to use a back gray cloth washer (such as a towel) in between the [...] F. The office scheduling phone number is [phone]. ARM MOVEMENT RESTRICTIONS POST-IMPLANT - Do not [...] please call the Cardiac ElectrophysiologyTriage Nurse at [phone], option 3. General Instructions None Discharge References/Attachments None Lalit Mcmahon MD S Cardiac Electrophysiology 07/24/2022 12:33 PM documented in this encounter Discharge Instructions * Patient Instructions* Fadi Nunez MD - 07/24/2022 8:10 AM EDT FINAL ICD/PACEMAKER RECOMMENDATIONS: 1. Standard post implant discharge instructions (see below): 2. Medications as listed above. You may use ice packs over the incision. Make sure to use a back gray cloth washer (such as a towel) in between the [...] F. The office scheduling phone number is [phone]. ARM MOVEMENT RESTRICTIONS POST-IMPLANT - Do not [...] please call the Cardiac ElectrophysiologyTriage Nurse at [phone], option 3. documented in this encounter Medications [...] with spacer fluticasone propionate (Flonase) 50 mcg/actuation [place], Suspension 1 spray by Each Nare route [...] Cardiac Electrophysiology Post-Implant Device Interrogation Luna Mott [id number] 07/24/2022 History: Luna Mott is a 71 y.o. female with a history of HFrEF, LBBB, QRS >150, NYHA II who is POD#1 of NURSE WOUND-D implant ([employer]). Overall feels well this morning. Ready [...] WOB Neuro- A&Ox3 Device Interrogation: Data ?? Ice Skating Instructor Model # Serial # Generator [employer] [id number] Atrial Lead [employer] 7841 [id number] RV Lead [employer] 0672 539774 LV Lead [employer] 4674 153546 ?? Diagnostics Pacing Mode: DDD 60-130 Underlying Rhythm: [place] Atrial Episodes: None Ventricular Episodes: None FINAL PROGRAMMING: Pacing: Mode Lower rate (ppm) Upper rate (ppm) ?? DDD 60 130 VF: Rate (bpm) #Antitachycardia pacing First shock energy (J) ?? 200 Quick convert 41 VT: 170 Monitor only Monitor only ? Battery and Leads Impedances (ohms) Sensing (mV) Thresholds HV RA RV LV RA RV LV RA RV LV 73 314 793 9119 (LVa) 7.7 13.1 >25 0.4V @ 0.4 ms 0.4V @ 0.4 ms 0.5 V @ 1.0 ms POD#1 CXR: All leads in nominal positioning Impression: 71 y.o. female who is s/p NURSE WOUND-D implant for LBBB, NYHA II, HFrEF. - [...] [facility] F[facility] Nunez MD 07/24/2022 Pager: [phone] I met with the patient today and [...] agreement. ? Dr. Lalit Mcmahon, electrophysiology attending ([id number]) * Zaria Wright RN - 07/23/2022 8:28 [...] HF, QRS > 150 ms presents for NURSE WOUND-D placement. ROS: Denies recent fevers or chills [...] 0.9) flush 5 mL 5 mL Intravenous [id number] ramos MD ??? sodium chloride 0.9 % [...] HF, QRS > 150 ms presents for NURSE WOUND-D placement. Backup would be LBBAP lead. Antibiotics: cefazolin Rationales for, intended benefits and potential risk of planned procedures reviewed. The patient indicated understanding and agreement with the plan. Informed consent signed. Procedure checklist completed. Fadi Nunez MD Cardiac Electrophysiology Fellow [facility] Pager [phone] 07/23/2022 I met with the patient today [...] agreement. ? Dr. Lalit Mcmahon, electrophysiology attending ([id number]) documented in this encounter Miscellaneous Notes * Brief Op Note - Lalit Mcmahon MD - 07/23/2022 4:04 PM EDT Brief Operative Note Patient Name: Luna Mott : [id number] MR#: [id number] Case Date: 07/23/2022 Surgeon: Surgeon(s) and Role: [...] AM EST Hospital Encounter Non-Invasive [place] [address] Arrived Scheduled Orders Name Type Priority Associated Diagnoses Orde r Schedule EKG 12 Lead ECG Routine Cardiac resynchronization therapy defibrillator (NURSE WOUND-D) in place One Time for 1 Occurrences [...] (Bezet) 522 ms MUSE SYSTEM Calculated R [place] 78 degrees MUSE SYSTEM Calculated T [place] -71 degrees MUSE SYSTEM INTERPRETATION AV dual-paced [...] have questions please contact the health rn progressive care unit that requested your imaging first. ? Electronically signed by: Kwame Vargas MD, [facility] ([phone]), at 07/24/2022 6:43 AM Narrative 07/24/2022 6:43 [...] who have questions please contactthe health rn progressive care unit that requested your imaging first. Electronically signed by: Kwame Vargas MD, [facility]([phone]), at 07/24/2022 6:43 AM Lalit Mcmahon MD IMG DX ORDERABLES * ELECTROPHYSIOLOGY PROCEDURE (07/23/2022 1:11 PM EDT) Anatomical Region Laterality Modality Other Narrative 07/23/2022 4:24 PM EDT Table formatting from the original result was not included. BIVENTRICULAR ICD IMPLANTATION Cage Maker Machine: Lalit Mcmahon MD Fellow: Fadi Nunez [...] lateral branch of the CS in the WALLISIAN view. This branch was cannulated with a [...] the entire procedure. LEAD AND GENERATOR DATA: Ice Skating Instructor Model # Serial # Generator [employer] [id number] Atrial Lead [employer] 7841 [id number] RV Lead [employer] 0672 583377 LV Lead [employer] 4674 460914 PACE/SENSE DATA: Sensed wave (mV) Threshold (V) [...] (cGycm2) 300 CONCLUSIONS: Successful implantation of a [employer] biventricular ICD for primary prevention and treatment of symptoms related to congestive heart failure. Follow up in EP clinic in 1-2 months. Procedures performed: new ICD system ( cpt 45080-V2); implant LV lead at time of ICD insertion (cpt 69167) I have read, edited and approve of this report: Lalit Mcmahon MD S Cardiac Electrophysiology 07/23/2022 4:22 PM Procedure Note Lalit Mcmahon MD - 07/23/2022 BIVENTRICULAR ICD IMPLANTATION Cage Maker Machine: Lalit Mcmahon MD Fellow: Fadi Nunez [...] appropriate lateralbranch of the CS in the WALLISIAN view. This branch was cannulated with a [...] in the entireprocedure. LEAD AND GENERATOR DATA: Ice Skating Instructor Model # Serial # Generator [employer] [id number] Atrial Lead [employer] 7841 [id number] RV Lead [employer] 0672 659730 LV Lead [employer] 4674 184933 PACE/SENSE DATA: Sensed wave (mV) Threshold (V) [...] (cGycm2) 300 CONCLUSIONS: Successful implantation of a [employer] biventricular ICD forprimary prevention and treatment of symptoms related to congestive heartfailure. Follow up in EP clinic in 1-2 months. Procedures performed: new ICD system ( cpt 20135-U3); implant LV lead attime of ICD insertion (cpt 42618) I have read, edited and approve of this report: Lalit Mcmahon MD [facility] Cardiac Electrophysiology 07/23/2022 4:22 PM Lalit Mcmahon MD EP PROCEDURE ORDERAB LES * POCT Glucose (07/23/2022 12:54 PM EDT) Glucose, POC 83 65 - 199 mg/dL [facility] Comment: Supplemental ranges: <140 mg/dL before meals <180 mg/dL all other times of the day Blood 07/23/2022 12:5 4 PM EDT 07/23/2022 12:54 PM EDT Lalit Mcmahon MD POINT OF CARE TEST O RDERABLES Performing Organization Address [facility] Co de Phone Number [facility] [place] [address] * EKG 12 Lead (07/23/2022 12:33 PM EDT) Ventricular rate 72 BPM MUSE SYSTEM Atrial Rate 72 BPM MUSE SYSTEM P-R Interval 158 ms MUSE SYSTEM QRS Duration 176 ms MUSE SYSTEM Q-T Interval 458 ms MUSE SYSTEM QTC Calculated (Bezet) 501 ms MUSE SYSTEM Calculated P [place] 34 degrees MUSE SYSTEM Calculated R [place] 12 degrees MUSE SYSTEM Calculated T [place] -173 degrees MUSE SYSTEM INTERPRETATION Normal sinus rhythm Left bundle branch block Abnormal ECG No previous ECGs available Confirmed by MD Salome, Lalit ([id number]) on 07/23/2022 1:19:03 PM MUSE SYSTEM 07/23/2022 12:3 3 PM EDT 07/23/2022 1:19 PM EDT Lalit Mcmahon MD ECG ORDERABLES Performing Organization Address [facility] de Phone Number MUSE SYSTEM * Differential, Automated (07/23/2022 11:55 AM EDT) Neutrophil % 62.6 % [facility] Neutrophil Absolute 4.14 1.70 - 6.10 x10(3)/[facility] LABORATORY Lymph % 27.0 % [facility] Lymphocytes Abs 1.8 0.9 - 3.2 x10(3)/[facility] LABORATORY Monocyte % 7.3 % [facility] ITAL LAB[facility] Monocyte Abs 0.5 0.3 - 0.9 x10(3)/[facility] LABORATORY Eos % 2.3 % [facility] Eosinophils Abs 0.2 0.0 - 0.4 x10(3)/[facility] LABORATORY Basophil % 0.6 % [facility] ITAL LABORATORY Baso Absolute 0.0 0.0 - 0.1 x10(3)/[facility] LABORATORY Immature Gran % 0.20 % [facility] Comment: Immature granulocytes(IG's)percentage and absolute count will include metamyelocytes, myelocytes, and promyelocytes. Blood smears from CBCs yielding IG's will be scanned manually for concordance. If this scan disagrees with the automated IG or if promyelocytes are noted, a manual differential will be performed. Immature Gran Absolute 0.01 0.00 - 0.04 x10(3)/[facility] LAB[facility]ORY Blood 07/23/2022 11:5 5 AM EDT 07/23/2022 12:07 PM EDT Narrative Resulting Agency Comment Spec In Lab Lalit Mcmahon MD HEMATOLOGY ORDERABLE S [facility] [place] [address] * Hemogram (07/23/2022 11:55 AM EDT) White Blood Cell 6.6 4.0 - 9.5 x10(3)/[facility] Red Blood Cell 4.50 4.00 - 5.21 x10(6)/[facility] Hemoglobin 13.7 11.7 - 15.5 g/dL [facility] Hematocrit 42.5 35.7 - 45.8 % [facility] Mean Cell Volume 94.4 82.6 - 94.4 fL [facility] Mean Cell Hemoglobin 30.4 27.1 - 32.0 pg [facility] Mean Cell Hemoglobin Concentration 32.2 31.7 - 35.0 g/dL [facility] Platelet 193 145 - 357 x10(3)/[facility] LAB[facility]ATORY RDW Standard Deviation 45.5 37.0 - 46.0 fL [facility] RDW coefficient of variation 13.2 11.5 - 14.1 % [facility] Mean Platelet Volume 9.5 7.6 - 12.9 fL [facility] NRBC% auto 0.0 % [facility] ITAL LAB[facility]ATORY NRBC Absolute 0.000 0.000 - 0.000 x10(3)/mcL [facility] Blood 07/23/2022 11:5 5 AM EDT 07/23/2022 12:07 PM EDT Narrative Resulting Agency Comment Spec In Lab Lalit Mcmahon MD HEMATOLOGY ORDERABLE S [facility] [address] [place] [address] * (ABNORMAL) BMP w/fasting Glucose (07/23/2022 11:55 AM EDT) Glucose Fasting 110(H) 65 - 99 mg/dL [facility] Comment: ?Fasting* Glucose Interpretive Criteria Normal [...] of Diabetes Mellitus, Position Statement from the [place] [employer]. ??Diabetes Care, Volume 33, Supplement 1, Mar 2009 Blood Urea Nitrogen 23(H) 8 - 18 mg/dL [facility] Creatinine 1.07 0.70 - 1.20 mg/dL [facility] Sodium 141 135 - 145 mmol/L [facility] Potassium 4.8 3.5 - 5.0 mmol/L [facility] Comment: Please note: ??Patients with WBC >100,000 may have falsely elevated Potassium levels. ??For accurate Potassium quantification in these patients send serum separator tube (gold top) for subsequent determinations. ??Contact the Clinical Chemistry Laboratory if there are any questions. Chloride 106 98 - 107 mmol/L [facility] Carbon Dioxide 26 22 - 31 mmol/L [facility] Anion Gap 9 5 - 15 mmol/L [facility] Calcium 9.7 8.5 - 10.5 mg/dL [facility] Est Glomerular Filtration Rate 55(L) >=60 mL/min/1. 73 m?? [facility] Comment: This patient's estimated GFR was [...] MD CHEMISTRY ORDERABLES Performing Organization Address [facility] Co de Phone Number [facility] [place] [address] * Prothrombin Time (07/23/2022 11:55 AM EDT) Prothrombin Time 11.7 9.4 - 12.5 sec [facility] International Normalization Ratio 1.0 [facility] Comment: An INR <2.0 indicates adequate [...] ORDERABLE S Performing Organization Address [facility] Co de Phone Number [facility] [place] [address] documented in this encounter Visit Diagnoses Diagnosis HFrEF (heart failure with reduced ejection fraction)- Primary Left bundle branch block Other left bundle branch block Nonischemic cardiomyopathy Other primary cardiomyopathies Cardiac resynchronization therapy defibrillator (NURSE WOUND-D) in place Left bundle branch block Other [...] Routine documented in this encounter Care Teams Occupational Therapy Manager Relationship Specialty Start Date End Date Lolly Oliveira MD [address] [place] [address] PCP - General 07/17/13 documented as of this encounter
--- OUTSIDE RECORDS SUMMARY | 2023-12-29 11:03 | XMS_ITS | Encounter Summary ---
Author Organization [place] [address] Care Team Providers Care Aeronautical Engineering Professor Name Role Phone Lolly Oliveira MD Primary Care Provider [phone] Reason for Visit * Reason Comments Psoriasis Encounter Details Date Type Department Care Team (Late st Contact Info) Description 04/09/2022 1:45 PM EST Office Visit Dermatology at [address] [address] Clay Ramírez MD [address] [facility] [place] [address] Psoriasis, guttate Social History Tobacco Use Types [...] AM EST Hospital Encounter Non-Invasive [place] [address] Arrived documented as of this encounter Visit Diagnoses Diagnosis Psoriasis, guttate Other psoriasis documented in this encounter Care Teams Aeronautical Engineering Professor Relationship Specialty Start Date End Date Lolly Oliveira MD [address] [place] [address] PCP - General 07/17/13 documented as of this encounter
--- OUTSIDE RECORDS SUMMARY | 2023-12-29 11:03 | XMS_ITS | Encounter Summary ---
[place] [address] Care Team Providers Care Abrasive Mixer Helper Name Role Phone Lolly Oliveira MD Primary Care Provider [phone] Encounter Details Date Type Department Care Team [...] AM EST Hospital Encounter Non[place] [address] Arrived documented as of this encounter Visit Diagnoses Not on filedocumented in this encounter Care Teams Abrasive Mixer Helper Relationship Specialty Start Date End Date Lolly Oliveira MD [address] [place] [address] PCP - General 07/17/13 documented as of this encounter
--- OUTSIDE RECORDS SUMMARY | 2023-12-29 11:03 | XMS_ITS | Encounter Summary ---
Author Organization [facility] [place] [address] Care Team Providers Care Glove Turner Name Role Phone Lolly Oliveira MD Primary Care Provider [phone] Encounter Details Date Type Department Care Team (Latest Contact Info) Description 07/26/2013 9:44 AM EDT - 07/26/2013 11:59 PM EDT Hospital [place] [address] CLINIC, Lolly So MD [address] [place], [place] [id number] Mammographic microcalcification Discharge Disposition: Home Social History [...] AM EST Hospital Encounter Non-[place] [address] Arrived documented as of this encounter Procedures [...] are present on specimen digital X-ray. A Ceon-Stereo 13 Cylinder marker clip was placed. Cranio-caudal [...] I performed the procedure without a resident. Aila Fraire MD IMG MAMMO ORDERABLES * Specimen to Pathology (surgical or derm) (07/26/2013 11:28 AM EDT) AP Specimen 07/26/2013 11:2 8 AM EDT 07/26/2013 11:28 AM EDT Narrative LEX DWYER - 07/26/2013 11:28 AM EDT Specimen requisition ordered. ??Separate Pathology report to follow Eleno Chrsitian MD PATHOLOGY/CYTOLOGY O RDERABLES LEX DWYER documented [...] mLs documented in this encounter Care Teams Glove Turner Relationship Specialty Start Date End Date Lolly Oliveira MD [address] [place] [address] PCP - General 07/17/13 documented as of this encounter
--- OUTSIDE RECORDS SUMMARY | 2023-12-29 11:03 | XMS_ITS | Encounter Summary ---
[place] [address] Care Team Providers Care Hospital Product Specialist Name Role Phone Lolly Oliveira MD Primary Care Provider [phone] Encounter Details Date Type Department Care Team [...] AM EST Hospital Encounter Non[place] [address] Arrived documented as of this encounter Visit Diagnoses Not on filedocumented in this encounter Care Teams Hospital Product Specialist Relationship Specialty Start Date End Date Lolly Oliveira MD [address] [place] [address] PCP - General 07/17/13 documented as of this encounter
--- OUTSIDE RECORDS SUMMARY | 2023-12-29 11:03 | XMS_ITS | Encounter Summary ---
Author Organization [facility] [place] [address] Care Team Providers Care Garment Patternmaker Name Role Phone Lolly Oliveira MD Primary Care Provider [phone] Encounter Details Date Type Department Care Team (Late st Contact Info) Description 06/29/2011 Orders Only [place] [address] Eleno Christian MD [facility] [place] [address] Social History Tobacco Use Types Packs/Day Years [...] AM EST Hospital Encounter Non[place] [address] Arrived documented as of this encounter Procedures [...] is a Non-reportable exam Eleno Christian MD [facility] FILM LIBRARY ORD ERABLES documented in this encounter Visit Diagnoses Not on filedocumented in this encounter Care Teams Garment Patternmaker Relationship Specialty Start Date End Date Lolly Oliveira MD [address] [place] [address] PCP - General 07/17/13 documented as of this encounter
--- OUTSIDE RECORDS SUMMARY | 2023-12-29 11:03 | XMS_ITS | Encounter Summary ---
[place] [address] Care Team Providers Care Single Wire Saw Operator Name Role Phone Lolly Oliveira MD Primary Care Provider [phone] Encounter Details Date Type Department Care Team (Late st Contact Info) Description 07/17/2013 Orders [place] [address] Lolly Oliveira MD [address] [place], [place] [address] Social History Tobacco Use Types Packs/Day Years [...] AM EST Hospital Encounter Non-Invasive [place] [address] Arrived documented as of this encounter Procedures [...] on filedocumented in this encounter Care Teams Single Wire Saw Operator Relationship Specialty Start Date End Date Lolly Oliveira MD [address] [place] [address] PCP - General 07/17/13 documented as of this encounter
--- OUTSIDE RECORDS SUMMARY | 2023-12-29 11:03 | XMS_ITS | Encounter Summary ---
Author Organization [facility] [place] [address] Care Team Providers Care Clinical Resource Nurse Name Role Phone Lolly Oliveira MD Primary Care Provider [phone] Encounter Details Date Type Department Care Team (Late st Contact Info) Description 07/26/2013 [place] [address] Eleno Christian MD [facility] [place] [address] Social History Tobacco Use Types Packs/Day Years [...] AM EST Hospital Encounter Non-Invasive [place] [address] Arrived documented as of this encounter Visit Diagnoses Not on filedocumented in this encounter Care Teams Clinical Resource Nurse Relationship Specialty Start Date End Date Lolly Oliveira MD [address] [place] [address] PCP - General 07/17/13 documented as of this encounter
--- OUTSIDE RECORDS SUMMARY | 2023-12-29 11:03 | XMS_ITS | Encounter Summary ---
[place] [address] Care Team Providers Care Graphics Programmer Name Role Phone Lolly Oliveira MD Primary Care Provider [phone] Encounter Details Date Type Department Care Team (Late st Contact Info) Description 04/09/2022 Refill Dermatology at [address] [address] Nora Meredith, APPLICATION SECURITY SPECIALIST Social History Tobacco Use Types Packs/Day Years [...] [facility] Non-Invasive [place] [address] Arrived documented as of this encounter Visit Diagnoses Not on filedocumented in this encounter Care Teams Graphics Programmer Relationship Specialty Start Date End Date Lolly Oliveira MD [address] [place] [address] PCP - General 07/17/13 documented as of this encounter
--- OUTSIDE RECORDS SUMMARY | 2023-12-29 11:03 | XMS_ITS | Encounter Summary ---
Author Organization [facility] [place] [address] Care Team Providers Care Sales Teacher Name Role Phone Unavailable Primary Care Provider Unavailabl e Encounter Details Date Type Department Care Team (Late st Contact Info) Description 07/14/2013 External Results XRay at [address] [place] [address] Provider, Scanning Social History Tobacco Use Types [...] Non-Invasive Cardiology Lab [facility] [place] [address] Arrived documented as of this encounter Procedures [...]
--- OUTSIDE RECORDS SUMMARY | 2023-12-29 11:03 | XMS_ITS | Encounter Summary ---
[place] [address] Care Team Providers Care Cloth Stock Sorter Name Role Phone Lolly Oliveira MD Primary Care Provider [phone] Encounter Details Date Type Department Care Team [...] AM EST Hospital Encounter [place] [address] Arrived documented as of this encounter Visit Diagnoses Not on filedocumented in this encounter Care Teams Cloth Stock Sorter Relationship Specialty Start Date End Date Lolly Oliveira MD [address] [place] [address] PCP - General 07/17/13 documented as of this encounter
--- OUTSIDE RECORDS SUMMARY | 2023-12-29 11:03 | XMS_ITS | Encounter Summary ---
Author Organization [facility] [place] [address] Care Team Providers Care Special Education Math Teacher Name Role Phone Lolly Oliveira MD Primary Care Provider [phone] Encounter Details Date Type Department Care Team (Late st Contact Info) Description 04/01/2021 3:30 PM EST Office Visit Dermatology at [address] [id number] Clay Ramírez MD [address], [place] [address] Psoriasis, guttate Social History Tobacco Use Types [...] AM EST Hospital Encounter Non-Invasive [place] [address] Arrived documented as of this encounter Visit Diagnoses Diagnosis Psoriasis, guttate Other psoriasis documented in this encounter Care Teams Special Education Math Teacher Relationship Specialty Start Date End Date Lolly Oliveira MD [address] [place] [address] PCP - General 07/17/13 documented as of this encounter
--- OUTSIDE RECORDS SUMMARY | 2023-12-29 11:03 | XMS_ITS | Encounter Summary ---
Author Organization [facility] [place] [place] [address] Care Team Providers Care Meat Market Manager Name Role Phone Lolly Oliveira MD Primary Care Provider [phone] Reason for Referral * Diagnostic Test (Routine) - Closed Specialty Diagnoses / Procedures Referred By Contac t Referred To Contact Radiology Diagnoses Left bundle branch block Nonischemic cardiomyopathy Procedures MRI Cardiac Morphology Function With Flow Velocity Quantification [facility] Contrast MRI Cardiac Morphology Function wwo Contrast Lalit Mcmahon MD [facility] [place] [address] [place] [address] Referral ID Status Reason Start Date Expiration Date V isits Requested Visits Authorized [id number] Closed Specialty Service Requested 05/06/2022 11/07/2023 2 1 Reason for Visit * Diagnostic Test (Routine) - Closed Specialty Diagnoses / Procedures Referred By Contac t Referred To Contact Radiology Diagnoses Left bundle branch block Nonischemic cardiomyopathy Procedures MRI Cardiac Morphology Function With Flow Velocity Quantification o Contrast MRI Cardiac Morphology Function wwo Contrast Lalit Mcmahon MD [facility] [place] [address] [place] [address] Referral ID Status Reason Start Date Expiration Date V isits Requested Visits Authorized [id number] Closed Specialty Service Requested 05/06/2022 11/07/2023 2 1 Encounter Details Date Type Department Care Team (Latest Contact Info) Description 07/14/2022 9:08 AM EDT Hospital Encounter MRI at [facility] [place] [phone] Lalit Mcmahon MD [facility] [place] [address] Left bundle branch block; Nonischemic cardiomyopathy Discharge [...] with spacer fluticasone propionate (Flonase) 50 mcg/actuation [place], Suspension 1 spray by Each Nare route [...] : 1950 [address] [facility] [address] Female [phone] (home) No relevant phone numbers on file. Lolly Oliveira MD None Allergies Allergen Reactions ??? Sulfa (Sulfonamide Antibiotics) Date/Time of call: July 07, 2022/11:03 AM/ PREVIOUS MRI SCAN? HEIGHT: WEIGHT: SCHEDULED SCAN: MRI CARDIAC MORPHOLOGY FUNCTION WITH FLOW VELOCITY QUANTIFICATION WWO CONTRAST [[id number]] Order Questions Answers Where will study be performed? [facility] Radiology [120] SUBJECTIVE: Very Claustrophobic CAN [...] ( K[place] ) You must have a non cdl driver present when you check in. This patient has been informed that they require a non cdl driver to drive them home after this procedure. In the absence of a non cdl driver, IR will not be able to sedate for your scan. Pt verbalized understanding of these instructions during the pre-procedure education via phone. Yes Name of non cdl driver: Daughter Phone number: PRIOR SCAN DATE/S SEDATION TYPE SUCCESSFUL 07/14/22 MRI Cardiac Morphology Function with Flow Velocity Quantification wwo Contrast Ativan 1mg x 1 dose Pass Revised 08/03/17 documented in this encounter Plan of Treatment Upcoming Encounters Date Type Department Care Team (Late st Contact Info) Description 01/16/2024 10:00 AM [facility] Hospital Encounter Non[place] [address] Arrived documented as of this encounter Procedures [...] have questions please contact the health care administrative tech that requested your imaging first. ? Narrative [...] who have questions please contactthe health care administrative tech that requested your imaging first. Lalit Mcmahon [...] mg documented in this encounter Care Teams Meat Market Manager Relationship Specialty Start Date End Date Lolly Oliveira MD [address] [place] [address] PCP - General 07/17/13 documented as of this encounter
--- OUTSIDE RECORDS SUMMARY | 2023-12-29 11:03 | XMS_ITS | Encounter Summary ---
[place] [address] Care Team Providers Care Marketing Strategy Manager Name Role Phone Lolly Oliveira MD Primary Care Provider [phone] Encounter Details Date Type Department Care Team [...] AM EST Hospital Encounter Non[place] [address] Arrived documented as of this encounter Visit Diagnoses Not on filedocumented in this encounter Care Teams Marketing Strategy Manager Relationship Specialty Start Date End Date Lolly Oliveira MD [address] [place] [address] PCP - General 07/17/13 documented as of this encounter
--- OUTSIDE RECORDS SUMMARY | 2023-12-29 11:03 | XMS_ITS | Encounter Summary ---
Author Organization [facility] [place] [address] Care Team Providers Care Architectural Administrative Assistant Name Role Phone Lolly Oliveira MD Primary Care Provider [phone] Encounter Details Date Type Department Care Team (Latest Contact Info) Description 07/26/2013 9:45 AM EDT - 07/26/2013 11:59 PM EDT Hospital En[place] [address] Mammographic microcalcification Social History Tobacco Use Types [...] AM EST Hospital Encounter Non[place] [address] Arrived documented as of this encounter Procedures [...] microcalcification documented in this encounter Care Teams Architectural Administrative Assistant Relationship Specialty Start Date End Date Lolly Oliveira MD [address] [place] [address] PCP - General 07/17/13 documented as of this encounter
--- OUTSIDE RECORDS SUMMARY | 2023-12-29 11:03 | XMS_ITS | Encounter Summary ---
[place] [address] Care Team Providers Care Wood Milling Machine Tender Name Role Phone Lolly Oliveira MD Primary Care Provider [phone] Encounter Details Date Type Department Care Team (Latest Contact Info) Description 07/26/2013 9:45 AM EDT - 07/26/2013 11:59 PM EDT Hospital Encounter [place] [address] Mammographic microcalcification Social History Tobacco Use Types [...] AM EST Hospital Encounter Non-[place] [address] Arrived documented as of this encounter Procedures Procedure Name Priority Date/Time Associated Diagnosis Comments SURGICAL PATHOLOGY REPORT Routine 07/26/2013 12:12 PM EDT MAMMO SPECIMEN IMAGING DURING BIOPSY Routine 07/26/2013 11:58 AM EDT Mammographic microcalcification documented in this encounter Results * Surgical Pathology Report (07/26/2013 12:12 PM EDT) Final Diagnosis ? [facility] ? Provider: ?? ELENO CHRISTIAN ?? Pt. Name: ?? JING ALVARENGA ? Acc #: ?[id number] ?Pt. ? Col Date: ?? 07/26/2013 ? [...] fibrofatty needle core biopsies. ? [facility] ? Provider: ?? ELENO CHRISTIAN ?? Pt. Name: ?? JING ALVARENGA ? Acc #: ?[id number] ?Pt. ? Col Date: ?? 07/26/2013 ? [...] FCD, adenosis, DCIS 07/28/2013 8:[address] [facility] BREAST STRUCTURE / Unknown 07/26/2013 12:12 PM EDT 07/26/2013 12:12 PM EDT Eleno Christian MD PATHOLOGY/CYTOLOGY O RDERABLES Performing Organization Address City/State/[facility] Co al Phone Number [facility] [place] [address] * Mammo Specimen Imaging During Biopsy (07/26/2013 [...] documented in this encounter Care Teams Wood Milling Machine Tender Relationship Specialty Start Date End Date Lolly Oliveira MD [address] [place] [address] PCP - General 07/17/13 documented as of this encounter
--- OUTSIDE RECORDS SUMMARY | 2023-12-29 11:03 | XMS_ITS | Encounter Summary ---
Author Organization [facility] [place] [address] Care Team Providers Care Regional Environmental Manager Name Role Phone Unavailable Primary Care Provider Unavailabl e Encounter Details Date Type Department Care Team (Late st Contact Info) Description 07/04/2012 [place] [address] Eleno Christian MD [facility] [place] [address] Social History Tobacco Use Types Packs/Day Years [...] AM EST Hospital Encounter Non-Invasive [place] [address] Arrived documented as of this encounter Procedures [...] is a Non-reportable exam Eleno Christian MD [facility] FILM LIBRARY ORD ERABLES documented in this encounter Visit Diagnoses Not on filedocumented in this encounter
--- OUTSIDE RECORDS SUMMARY | 2023-12-29 11:03 | XMS_ITS | Encounter Summary ---
Author Organization [facility] [place] [address] Care Team Providers Care Water Gas Operator Name Role Phone Lolly Oliveira MD Primary Care Provider [phone] Reason for Visit * Auth/Cert (Routine) Specialty Diagnoses / Procedures Referred By Contac t Referred To Contact Diagnoses Left bundle-branch block, unspecified Other cardiomyopathies Left bundle branch block [I44.7]Nonischemic cardiomyopathy [I42.8] Procedures PRG CATH PLMT LEFT HEART CATH & ARTS W/INJ & ANGIO IMG S&I ELECTROPHYSIOLOGY PROCEDURE Lalit Mcmahon MD [facility] [place] [address] [facility] Referral ID Status Reason Start Date Expiration Date Visits Re quested Visits Authorized [id number] 1 1 Encounter Details Date Type Department Care Team (Late st Contact Info) Description 07/23/2022 1:00 PM EDT - 07/23/2022 5:30 PM EDT Surgery [place] [address] Lalit Mcmahon MD [facility] [place] [address] ELECTROPHYSIOLOGY PROCEDURE Social History Tobacco Use Types Packs/Day Years Used Date Smoking Tobacco: Never Tobacco Cessation:Counseling Given: Not Answered Alcohol Use Standard Drinks/Week Comments Not Currently 0 (1 standard drink = 0.6 oz pur e alcohol) [facility] Inpatient Questions Answer Date Recorded [...] Luna Mott Patient Age: 71 y.o. Language: Niuean Race: White Ethnicity: Not nor Admit date: 07/23/2022 Discharge date and time: 07/24/22 Attending Physician: Lalit Mcmahon MD Discharge Physician: Lalit Mcmahon MD Follow-up Recommendations for Providers: - s/p HOTEL ATTENDANT-D implant - post implant QRS 130 ms [...] lentigo Operations/Major Procedures: 07/23/22: [facility] HOTEL ATTENDANT-D implant History of Presentation: 71 y.o. female with a history of HFrEF, LBBB, QRS >150, NYHA II who is POD#1 of HOTEL ATTENDANT-D implant ([employer]). Hospital Course: Elective admission for HOTEL ATTENDANT-D implant Admitted post-implant for pain management, telemetry [...] (heart failure with reduced ejection fraction) [I50.20] HOTEL ATTENDANT-D implant Admission Condition: good Indication for Admission: [...] g Refills: 3 fluticasone propionate 50 mcg/actuation [place], Suspension Commonly known as: Flonase 1 spray [...] F. The office scheduling phone number is [phone]. ARM MOVEMENT RESTRICTIONS POST-IMPLANT - Do not [...] please call the Cardiac ElectrophysiologyTriage Nurse at [phone], option 3. General Instructions None Discharge References/Attachments [...] F. The office scheduling phone number is [phone]. ARM MOVEMENT RESTRICTIONS POST-IMPLANT - Do not [...] please call the Cardiac ElectrophysiologyTriage Nurse at [phone], option 3. documented in this encounter Medications [...] with spacer fluticasone propionate (Flonase) 50 mcg/actuation [place], Suspension 1 spray by Each Nare route [...] Cardiac Electrophysiology Post-Implant Device Interrogation Luna Mott [id number] 07/24/2022 History: Luna Mott is a 71 y.o. female with a history of HFrEF, LBBB, QRS >150, NYHA II who is POD#1 of HOTEL ATTENDANT-D implant ([employer]). Overall feels well this morning. Ready [...] WOB Neuro- A&Ox3 Device Interrogation: Data ?? Customer Manager Model # Serial # Generator [employer] [id number] Atrial Lead [employer] [id number] RV Lead [employer] [id number] [id number] LV Lead [employer] [phone] [id number] ?? Diagnostics Pacing Mode: DDD 60-130 Underlying Rhythm: [place] Atrial Episodes: None Ventricular Episodes: None FINAL PROGRAMMING: Pacing: Mode Lower rate (ppm) Upper rate (ppm) ?? DDD 60 130 VF: Rate (bpm) #Antitachycardia pacing First shock energy (J) ?? 200 Quick convert 41 VT: 170 Monitor only Monitor only ? Battery and Leads Impedances (ohms) Sensing (mV) Thresholds HV RA RV LV RA RV LV RA RV LV 73 [phone] (LVa) 7.7 13.1 >25 0.4V @ 0.4 ms 0.4V @ 0.4 ms 0.5 V @ 1.0 ms POD#1 CXR: All leads in nominal positioning Impression: 71 y.o. female who is s/p HOTEL ATTENDANT-D implant for LBBB, NYHA II, HFrEF. - [...] ~10 days ([facility]) Fadi Nunez MD 07/24/2022 Pager: [phone] I met with the patient today and [...] agreement. ? Dr. Lalit Mcmahon, electrophysiology attending ([id number]) * Zaria Wright RN - 07/23/2022 8:28 [...] HF, QRS > 150 ms presents for HOTEL ATTENDANT-D placement. ROS: Denies recent fevers or chills [...] 0.9) flush 5 mL 5 mL Intravenous [id number] ramos MD ??? sodium chloride 0.9 % [...] HF, QRS > 150 ms presents for HOTEL ATTENDANT-D placement. Backup would be LBBAP lead. Antibiotics: cefazolin Rationales for, intended benefits and potential risk of planned procedures reviewed. The patient indicated understanding and agreement with the plan. Informed consent signed. Procedure checklist completed. Fadi Nunez MD Cardiac Electrophysiology Fellow [facility] Pager [phone] 07/23/2022 I met with the patient today [...] agreement. ? Dr. Lalit Mcmahon, electrophysiology attending ([id number]) documented in this encounter Miscellaneous Notes * Brief Op Note - Lalit Mcmahon MD - 07/23/2022 4:04 PM EDT Brief Operative Note Patient Name: Luna Mott : [id number] MR#: [id number] Case Date: 07/23/2022 Surgeon: Surgeon(s) and Role: [...] AM EST Hospital Encounter [place] [address] Arrived Scheduled Orders Name Type Priority Associated Diagnoses Orde r Schedule EKG 12 Lead ECG Routine Cardiac resynchronization therapy defibrillator (HOTEL ATTENDANT-D) in place One Time for 1 Occurrences [...] (Bezet) 522 ms MUSE SYSTEM Calculated R Hoskins 78 degrees MUSE SYSTEM Calculated T Hoskins -71 degrees MUSE SYSTEM INTERPRETATION AV dual-paced [...] have questions please contact the health primary care sales representative that requested your imaging first. ? Electronically signed by: Kwame Vargas MD, [facility] ([phone]), at 07/24/2022 6:43 AM Narrative 07/24/2022 6:43 [...] who have questions please contactthe health primary care sales representative that requested your imaging first. Lalit Mcmahon MD IMG DX ORDERABLES * ELECTROPHYSIOLOGY PROCEDURE (07/23/2022 1:11 PM EDT) Anatomical Region Laterality Modality Other Narrative 07/23/2022 4:24 PM EDT Table formatting from the original result was not included. BIVENTRICULAR ICD IMPLANTATION Shoe Maker: Lalit Mcmahon MD Fellow: Fadi Nunez MD [...] lateral branch of the CS in the [place] view. This branch was cannulated with a [...] the entire procedure. LEAD AND GENERATOR DATA: Customer Manager Model # Serial # Generator [employer] [id number] Atrial Lead [employer] [id number] RV Lead [employer] [id number] [id number] LV Lead [employer] [id number] [id number] PACE/SENSE DATA: Sensed wave (mV) Threshold (V) [...] (cGycm2) 300 CONCLUSIONS: Successful implantation of a [employer] biventricular ICD for primary prevention and treatment of symptoms related to congestive heart failure. Follow up in EP clinic in 1-2 months. Procedures performed: new ICD system ( cpt 69613-B8); implant LV lead at time of ICD insertion (cpt 17048) I have read, edited and approve of this report: Lalit Mcmahon MD [facility] Cardiac Electrophysiology 07/23/2022 4:22 PM Procedure Note Lalit Mcmahon MD - 07/23/2022 BIVENTRICULAR ICD IMPLANTATION Shoe Maker: Lalit Mcmahon MD Fellow: Fadi Nunez MD [...] appropriate lateralbranch of the CS in the [place] view. This branch was cannulated with a [...] in the entireprocedure. LEAD AND GENERATOR DATA: Customer Manager Model # Serial # Generator [employer] [id number] Atrial Lead [employer] 7841 [id number] RV Lead [employer] 0672 [id number] LV Lead [employer] [id number] [id number] PACE/SENSE DATA: Sensed wave (mV) Threshold (V) [...] (cGycm2) 300 CONCLUSIONS: Successful implantation of a [employer] biventricular ICD forprimary prevention and treatment of symptoms related to congestive heartfailure. Follow up in EP clinic in 1-2 months. Procedures performed: new ICD system ( cpt 95201-S2); implant LV lead attime of ICD insertion (cpt 92813) I have read, edited and approve of this report: Lalit Mcmahon MD S Cardiac Electrophysiology 07/23/2022 4:22 PM Lalit Mcmahon MD EP PROCEDURE ORDERAB LES * POCT Glucose (07/23/2022 12:54 PM EDT) [facility] Signature Glucose, POC 83 65 - 199 mg/dL [facility] Comment: Supplemental ranges: <140 mg/dL before meals <180 mg/dL all other times of the day Blood 07/23/2022 12:5 4 PM EDT 07/23/2022 12:54 PM EDT Lalit Mcmahon MD POINT OF CARE TEST O RDERABLES Performing Organization Address City/[facility]/ZIP Co de Phone Number [facility] [place] [address] * EKG 12 Lead (07/23/2022 12:33 PM EDT) Ventricular rate 72 BPM MUSE SYSTEM Atrial Rate 72 BPM MUSE SYSTEM P-R Interval 158 ms MUSE SYSTEM QRS Duration 176 ms MUSE SYSTEM Q-T Interval 458 ms MUSE SYSTEM QTC Calculated (Bezet) 501 ms MUSE SYSTEM Calculated P Hoskins 34 degrees MUSE SYSTEM Calculated R [place] 12 degrees MUSE SYSTEM Calculated T [place]kins -173 degrees MUSE SYSTEM INTERPRETATION Normal sinus rhythm Left bundle branch block Abnormal ECG No previous ECGs available Confirmed by MD Salome, Lalit ([id number]) on 07/23/2022 1:19:03 PM MUSE SYSTEM 07/23/2022 12:3 3 PM EDT 07/23/2022 1:19 PM EDT Lalit Mcmahon MD ECG ORDERABLES Performing Organization Address [facility]/ZIP Co de Phone Number MUSE SYSTEM * Differential, Automated (07/23/2022 11:55 AM EDT) Neutrophil % 62.6 % [facility] Neutrophil Absolute 4.14 1.70 - 6.10 x10(3)/[facility] Lymph % 27.0 % [facility] Lymphocytes Abs 1.8 0.9 - 3.2 x10(3)/[facility] Monocyte % 7.3 % [facility] Monocyte Abs 0.5 0.3 - 0.9 x10(3)/[facility] Eos % 2.3 % [facility] Eosinophils Abs 0.2 0.0 - 0.4 x10(3)/[facility] Basophil % 0.6 % [facility] ITAL LABORATORY Baso Absolute 0.0 0.0 - 0.1 x10(3)/[facility]AT[facility] Immature Gran % 0.20 % [facility] Comment: Immature granulocytes(IG's)percentage and absolute [...] Lab Lalit Mcmahon MD HEMATOLOGY ORDERABLE S [facility] [place] [address] * Hemogram (07/23/2022 11:55 AM EDT) White Blood Cell 6.6 4.0 - 9.5 x10(3)/[facility] Red Blood Cell 4.50 4.00 - 5.21 x10(6)/[facility] Hemoglobin 13.7 11.7 - 15.5 g/dL [facility] Hematocrit 42.5 35.7 - 45.8 % [facility] Mean Cell Volume 94.4 82.6 - 94.4 fL [facility] Mean Cell Hemoglobin 30.4 27.1 - 32.0 pg [facility] Mean Cell Hemoglobin Concentration 32.2 31.7 - 35.0 g/dL [facility] Platelet 193 145 - 357 x10(3)/[facility] RDW Standard Deviation 45.5 37.0 - 46.0 fL [facility] RDW coefficient of variation 13.2 11.5 - 14.1 % [facility] Mean Platelet Volume 9.5 7.6 - 12.9 fL [facility] NRBC% auto 0.0 % [facility] ITAL LAB[facility] NRBC Absolute 0.000 0.000 - 0.000 x10(3)/[facility] Blood 07/23/2022 11:5 5 AM EDT 07/23/2022 12:07 PM EDT Narrative Resulting Agency Comment Spec In Lab Lalit Mcmahon MD HEMATOLOGY ORDERABLE S [facility] [place] [address] * (ABNORMAL) BMP w/fasting Glucose (07/23/2022 11:55 AM EDT) Glucose Fasting 110(H) 65 - 99 mg/dL [facility] Comment: ?Fasting* Glucose Interpretive Criteria [...] of Diabetes Mellitus, Position Statement from the [employer]. ??Diabetes Care, Volume 33, Supplement 1, Mar 2009 Blood Urea Nitrogen 23(H) 8 - 18 mg/dL [facility] Creatinine 1.07 0.70 - 1.20 mg/dL [facility] Sodium 141 135 - 145 mmol/L [facility] Potassium 4.8 3.5 - 5.0 mmol/L [facility] Comment: Please note: ??Patients with WBC >100,000 may have falsely elevated Potassium levels. ??For accurate Potassium quantification in these patients send serum separator tube (gold top) for subsequent determinations. ??Contact the Clinical Chemistry Laboratory if there are any questions. Chloride 106 98 - 107 mmol/L [facility] Carbon Dioxide 26 22 - 31 mmol/L [facility] Anion Gap 9 5 - 15 mmol/L [facility] Calcium 9.7 8.5 - 10.5 mg/dL [facility] Est Glomerular Filtration Rate 55(L) >=60 mL/min/1. 73 m?? [facility] Comment: This patient's estimated [...] Mcmahon MD CHEMISTRY ORDERABLES Performing Organization Address [facility] Co de Phone Number [facility] [address] * Prothrombin Time (07/23/2022 11:55 AM EDT) Prothrombin Time 11.7 9.4 - 12.5 sec [facility] International Normalization Ratio 1.0 [facility] Comment: An INR <2.0 indicates [...] MD HEMATOLOGY ORDERABLE S Performing Organization Address City/[facility] Co de Phone Number [facility] [address] documented in this encounter Visit Diagnoses Diagnosis HFrEF (heart failure with reduced ejection fraction)- Primary Left bundle branch block Other left bundle branch block Nonischemic cardiomyopathy Other primary cardiomyopathies Cardiac resynchronization therapy defibrillator (HOTEL ATTENDANT-D) in place Left bundle branch block Other [...] Routine documented in this encounter Care Teams Water Gas Operator Relationship Specialty Start Date End Date Lolly Oliveira MD [address] [place] [address] PCP - General 07/17/13 documented as of this encounter
--- OUTSIDE RECORDS SUMMARY | 2023-12-29 11:03 | XMS_ITS | Encounter Summary ---
Author Organization [facility] [place] [address] Care Team Providers Care Supervisor Scenic Arts Name Role Phone Lolly Oliveira MD Primary Care Provider [phone] Reason for Visit * Reason Comments Follow-up Encounter Details Date Type Department Care Team (Late st Contact Info) Description 05/21/2022 8:00 AM EDT Office Visit Dermatology at [address] [phone] Clay Ramírez MD [address] [facility] [place] [address] Psoriasis, guttate Social History Tobacco Use Types [...] [facility] Encounter [place] [address] Arrived documented as of this encounter Visit Diagnoses Diagnosis Psoriasis, guttate Other psoriasis documented in this encounter Care Teams Supervisor Scenic Arts Relationship Specialty Start Date End Date Lolly Oliveira MD [address] [place] [address] PCP - General 07/17/13 documented as of this encounter
--- OUTSIDE RECORDS SUMMARY | 2023-12-29 11:03 | XMS_ITS | Encounter Summary ---
Author Organization [facility] [place] [address] Care Team Providers Care Facing End Trimmer Name Role Phone Lolly Oliveira MD Primary Care Provider [phone] Reason for Visit * Reason Comments Skin Check Encounter Details Date Type Department Care Team (Late st Contact Info) Description 11/23/2014 10:00 AM EDT Office Visit Dermatology at [address] [phone] Clay Ramírez MD [address] [facility] [place] [address] Dermatofibroma; Nevus; Solar lentigo Discharge Disposition: Home [...] [facility] Hospital Encounter [place] [address] Arrived documented as of this encounter Visit Diagnoses Diagnosis Dermatofibroma Benign neoplasm of skin, site unspecified Nevus Benign neoplasm of skin, site unspecified Solar lentigo Other dyschromia documented in this encounter Care Teams Facing End Trimmer Relationship Specialty Start Date End Date Lolly Oliveira MD [address] [place] [address] PCP - General 07/17/13 documented as of this encounter
--- OUTSIDE RECORDS SUMMARY | 2023-12-29 11:03 | XMS_ITS | Encounter Summary ---
Author Organization [facility] Address [facility] [place] [address] Care Team Providers Care Boat Driver Name Role Phone Lolly Oliveira MD Primary Care Provider [phone] Encounter Details Date Type Department Care Team (Late st Contact Info) Description 07/16/2022 Telephone Cardiology at [address] [phone] Lalit Mcmahon MD [facility] [place] [address] Social History Tobacco Use Types Packs/Day Years [...] her nonischemic cardiomyopathy. She is scheduled for OUTPATIENT RECEPTIONIST-D implantation next week and looks forward to the procedure. We will see each other next week. Lalit Mcmahon MD [facility] Cardiac Electrophysiology 07/16/2022 8:52 AM documented in this encounter Plan of Treatment Upcoming Encounters Date Type Department Care Team (Late st Contact Info) Description 01/16/2024 10:00 AM EST Hospital Encounter Non-[place]vasive [place] [address] Arrived documented as of this encounter Visit Diagnoses Not on filedocumented in this encounter Care Teams Boat Driver Relationship Specialty Start Date End Date Lolly Oliveira MD [address] [place] [address] PCP - General 07/17/13 documented as of this encounter
--- OUTSIDE RECORDS SUMMARY | 2023-12-29 11:03 | XMS_ITS | Encounter Summary ---
Author Organization [facility] [place] [address] Care Team Providers Care Laborer Chemical Processing Name Role Phone Lolly Oliveira MD Primary Care Provider [phone] Encounter Details Date Type Department Care Team (Latest Contact Info) Description 07/18/2013 [place] [phone] Alia Fraire MD [facility] [place] [address] Mammographic microcalcification (Primary Dx) Social History Tobacco [...] AM EST Hospital Encounter [place] [phone] Arrived documented as of this encounter Results [...] present on specimen digital X-ray. [facility] 13 Cylinder marker clip was placed. [...] calcifications are present on specimendigital X-ray. [facility] Ev[facility]Ste[facility] 13 Cylinder marker clip was placed. [...] does not layer and, therefore, are not equal opportunity representative of milk of calcium. Again, these [...] does not layer and, therefore, are not equal opportunity representative of milk of calcium. Again, these have an amorphous andpunctate appearance and remain indeterminate. Stereotactic guided biopsy isrecommended. Alia Fraire MD IMG MAMMO ORDERABLES documented in this encounter Visit Diagnoses Diagnosis Mammographic microcalcification- Primary Mammographic microcalcification Mammographic microcalcification Mammographic microcalcification Mammographic microcalcification documented in this encounter Care Teams Laborer Chemical Processing Relationship Specialty Start Date End Date Lolly Oliveira MD [address] [place] [address] PCP - General 07/17/13 documented as of this encounter
--- OUTSIDE RECORDS SUMMARY | 2023-12-29 11:03 | XMS_ITS | Encounter Summary ---
Author Organization [facility] [place] [place] [address] Care Team Providers Care Stone Driller Name Role Phone Lolly Oliveira MD Primary Care Provider [phone] Reason for Visit * Reason Onset Date Comments Pre Procedure Call 07/01/2022 Encounter Details Date Type Department Care Team (Late st Contact Info) Description 07/01/2022 Telephone Cardiology at [address] [phone] Rosenda Sutton RN Pre Procedure Call Social History Tobacco Use Types Packs/Day Years Used Date Smoking Tobacco: Never Sex and Gender Information Value Date Recorded Sex Assigned at Not on file Gender Identity Not on file Sexual Orientation Not on file documented as of this encounter Miscellaneous Notes * Telephone Encounter - Rosenda Sutton RN - 07/01/2022 9:30 AM EDTSummary: Pre Procedure Call: ACCOUNT MANAGER RELIEF implant EP TABULAR TYPIST COORDINATION CHECKLIST Patient Name: Luna Mott Patient Performing Analysis Or Research Safety Inspector: Lalit Mcmahon Referring Provider: Lolly Oliveira Date of Procedure: 07/23/22 Arrival Time/ Case Time: 12:00 pm / 1:00 pm Check In Location: Hand Scraper Desk 4W Date Patient was Called: 07/01/22 Procedure: ACCOUNT MANAGER RELIEF Company: [employer] Type: ACCOUNT MANAGER RELIEF-D Laterality: LEFT Orders: Yes Lab Orders: Yes [...] overnight , understands that they will need special needs bus driver on day of discharge Notified pt that Goff catheter may be placed on day of procedure depending on type & duration of case. documented in this encounter Plan of Treatment Upcoming Encounters Date Type Department Care Team (Late st Contact Info) Description 01/16/2024 10:00 AM [facility] Hospital Encounter Non-Invasive [place] [address] Arrived documented as of this encounter Visit Diagnoses Not on filedocumented in this encounter Care Teams Stone Driller Relationship Specialty Start Date End Date Lolly Oliveira MD [address] [place] [address] PCP - General 07/17/13 documented as of this encounter
--- OUTSIDE RECORDS SUMMARY | 2023-12-29 11:03 | XMS_ITS | Encounter Summary ---
Author Organization [facility] [place] [address] Care Team Providers Care Hvac Sales Representative Name Role Phone Lolly Oliveira MD Primary Care Provider [phone] Reason for Referral * Diagnostic Test (Routine) - Closed Specialty Diagnoses / Procedures Referred By Contac t Referred To Contact Radiology Diagnoses Left bundle branch block Nonischemic cardiomyopathy Procedures MRI Cardiac Morphology Function With Flow Velocity Quantification wwo Contrast MRI Cardiac Morphology Function wwo Contrast Lalit Mcmahon MD [facility] [address] [place] [address] Referral ID Status Reason Start Date Expiration Date V isits Requested Visits Authorized [id number] Closed Specialty Service Requested 05/06/2022 11/07/2023 2 1 Encounter Details Date Type Department Care Team (Late st Contact Info) Description 05/06/2022 Orders Only Cardiology at [address] [phone] Lalit Mcmahon MD [facility] [place] [place] [address] Left bundle branch block; Nonischemic cardiomyopathy Social [...] AM EST Hospital Encounter Non-[place] [phone] Arrived documented as of this encounter Results [...] who have questions please contact the health animal care provider that requested your imaging first. [...] patients who have questions please contactthe health animal care provider that requested your imaging first. Lalit Mcmahon MD IMG MRI ORDERABLES documented in this encounter Visit Diagnoses Diagnosis Left bundle branch block Other left bundle branch block Nonischemic cardiomyopathy Other primary cardiomyopathies Left bundle branch block Other left bundle branch block Nonischemic cardiomyopathy Other primary cardiomyopathies documented in this encounter Care Teams Hvac Sales Representative Relationship Specialty Start Date End Date Lolly Oliveira MD [address] [place] [address] PCP - General 07/17/13 documented as of this encounter
--- OUTSIDE RECORDS SUMMARY | 2023-12-29 11:03 | XMS_ITS | Encounter Summary ---
Author Organization [facility] [place] [address] Care Team Providers Care Dietetics Director Name Role Phone Lolly Oliveira MD Primary Care Provider [phone] Encounter Details Date Type Department Care Team (Latest Contact Info) Description 07/17/2013 8:40 AM EDT - 07/17/2013 11:59 PM EDT Hospital Encounter XRay at [address] [place] [phone] CLIN[address], [facility] Discharge Disposition: Home Social [...] EST Hospital Encounter Non-Invasive [place] [address] Arrived documented as of this encounter Visit Diagnoses Not on filedocumented in this encounter Care Teams Dietetics Director Relationship Specialty Start Date End Date Lolly Oliveira MD [address] [place] [address] PCP - General 07/17/13 documented as of this encounter
--- OUTSIDE RECORDS SUMMARY | 2023-12-29 11:03 | XMS_ITS | Encounter Summary ---
Author Organization [facility] [place] [address] Care Team Providers Care Employee Wellness/Fitness Coordinator Name Role Phone Lolly Oliveira MD Primary Care Provider [phone] Reason for Visit * Reason Comments Follow-up Encounter Details Date Type Department Care Team (Late st Contact Info) Description 07/02/2022 8:00 AM EDT Office Visit Dermatology at [address] [phone] Clay Ramírez MD [address] [facility] [place] [address] Psoriasis, guttate Social History Tobacco Use Types [...] [facility] Hospital Encounter Non-Invasive [place] [phone] Arrived documented as of this encounter Visit Diagnoses Diagnosis Psoriasis, guttate Other psoriasis documented in this encounter Care Teams Employee Wellness/Fitness Coordinator Relationship Specialty Start Date End Date Lolly Oliveira MD [address] [place] [address] PCP - General 07/17/13 documented as of this encounter
--- OUTSIDE RECORDS SUMMARY | 2023-12-29 11:03 | XMS_ITS | Encounter Summary ---
Author Organization [facility] [place] [address] Care Team Providers Care Tour Bus Driver/Guide Name Role Phone Lolly Oliveira MD Primary Care Provider [phone] Reason for Visit * Reason Comments Follow-up Encounter Details Date Type Department Care Team (Late st Contact Info) Description 06/06/2021 8:45 AM EDT Office Visit Dermatology at [address] [phone] Clay Ramírez MD [address] [facility] [place] [address] Psoriasis, guttate Social History Tobacco Use Types Packs/Day Years Used Date Smoking Tobacco: Never Sex and Gender Information Value Date Recorded Sex Assigned at Not on file Gender Identity Not on file Sexual Orientation Not on file documented as of this encounter Progress Notes * lCay Ramírez MD - 06/06/2021 8:45 AM EDT [...] [facility] Hospital Encounter [place] [phone] Arrived documented as of this encounter Visit Diagnoses Diagnosis Psoriasis, guttate Other psoriasis documented in this encounter Care Teams Tour Bus Driver/Guide Relationship Specialty Start Date End Date Lolly Oliveira MD [address] [place] [address] PCP - General 07/17/13 documented as of this encounter
--- OUTSIDE RECORDS SUMMARY | 2023-12-29 11:03 | XMS_ITS | Encounter Summary ---
Author Organization [facility] [place] [address] Care Team Providers Care Brake Repair Supervisor Name Role Phone Lolly Oliveira MD Primary Care Provider [phone] Reason for Referral * Consultation (Routine) - Closed Specialty Diagnoses / Procedures Referred By Contact Referred To Contact Electrophysiology / Cardiology Diagnoses Left bundle branch block Cardiomyopathy, unspecified type AT MINIMUM PT NEEDS CONSIDERATION FOR DEFIBRILLATOR, ALSO CANDIDATE FOR RESYNCHRONIZATION THERAPY HER QRS IS >0.16 Lolly Oliveira MD [address] [place] [address] [facility] [address] [place] [phone] Referral ID Status Reason Start Date Expiration Date V isits Requested Visits Authorized [id number] Closed Consult, Test & Treat PCP Updated and/or Approved 04/30/2022 04/30/2023 6 6 Encounter Details Date Type Department Care Team (Latest Contact Info) Description 04/30/2022 Transcribe Orders eDH Incoming Referrals [phone] Lolly Oliveira MD [address] [place], [place] [id number] Left bundle branch block; Cardiomyopathy, unspecified type [...] Hospital Encounter [place] [address] Arrived Scheduled Referrals Name Type Priority Associated Diagnoses Orde r Schedule Referral to Cardiology Outpatient Referral Routine Left bundle branch block Cardiomyopathy, Unspecified Type Ordered: 04/30/2022 documented as of this encounter Visit Diagnoses Diagnosis Left bundle branch block Other left bundle branch block Cardiomyopathy, unspecified type documented in this encounter Care Teams Brake Repair Supervisor Relationship Specialty Start Date End Date Lolly Oliveira MD [address] [place] [address] PCP - General 07/17/13 documented as of this encounter
--- OUTSIDE RECORDS SUMMARY | 2023-12-29 11:03 | XMS_ITS | Encounter Summary ---
Author Organization [facility] [place] [address] Care Team Providers Care Vascular Radiologist Name Role Phone Lolly Oliveira MD Primary Care Provider [phone] Encounter Details Date Type Department Care Team (Late Contact Info) Description 01/14/2022 Telephone Dermatology at [address] [phone] Nora Meredith LPN Social [...] AM EST Hospital Encounter Non-Invasive [place] [address] Arrived documented as of this encounter Visit Diagnoses Not on filedocumented in this encounter Care Teams Vascular Radiologist Relationship Specialty Start Date End Date Lolly Oliveira MD [address] [place] [address] PCP - General 07/17/13 documented as of this encounter
[2023-12-29 11:11] VITALS: BP 131/61; PULSE 65; O2SAT 96
--- OUTSIDE RECORDS SUMMARY | 2023-12-31 11:10 | XMS_ITS | Encounter Summary ---
Author Organization [facility] [place] [address] Care Team Providers Care Child Care Associate Teacher Name Role Phone Lolly Oliveira MD Primary Care Provider [phone] Encounter Details Date Type Department Care Team (Latest Contact Info) Description 07/20/2023 10:00 AM EDT - 07/20/2023 11:59 PM EDT Hospital Encounter Non-[place] [phone] Discharge Disposition: Home Social History Tobacco Use [...] with spacer fluticasone propionate (Flonase) 50 mcg/actuation Bureau, Suspension 1 spray by Each Nare route daily as needed. documented as of this encounter Plan of Treatment Upcoming Encounters Date Type Department Care Team (Late st Contact Info) Description 01/16/2024 10:00 AM [facility] Hospital Encounter Non-[place] [address] Arrived documented as of this encounter Procedures [...] in this encounter Care Teams Child Care Associate Teacher Relationship Specialty Start Date End Date Lolly Oliveira MD [address] [place] [address] PCP - General 07/17/13 documented as of this encounter
--- OUTSIDE RECORDS SUMMARY | 2023-12-31 11:10 | XMS_ITS | Encounter Summary ---
Author Organization [facility] [place] [address] Care Team Providers Care Parachute Inspector Name Role Phone Lolly Oliveira MD Primary Care Provider [phone] Reason for Visit * Reason Onset Date Comments Other 07/24/2022 Implanted Cardia c Device Teaching/Education Encounter Details Date Type Department Care Team (Late st Contact Info) Description 07/24/2022 Notes Only Cardiology at [address] [phone] Letha Arroyo Other (Implanted Cardiac Device Teaching/Education) [...] to call the Cardiac Device Clinic at [phone] with any questions. Plan: [facility] check: [facility] [place] [address] Arrived documented as of this encounter Visit Diagnoses Not on filedocumented in this encounter Care Teams Parachute Inspector Relationship Specialty Start Date End Date Lolly Oliveira MD [address] [place] [address] PCP - General 07/17/13 documented as of this encounter
--- OUTSIDE RECORDS SUMMARY | 2023-12-31 11:10 | XMS_ITS | Encounter Summary ---
Author Organization [place] [address] Care Team Providers Care Head Greenskeeper Name Role Phone Lolly Oliveira MD Primary Care Provider [phone] Encounter Details Date Type Department Care Team (Latest Contact Info) Description 01/21/2023 10:00 AM EST - 01/21/2023 11:59 PM EST Hospital Encounter [place] [phone] Discharge Disposition: Home Social History Tobacco Use [...] with spacer fluticasone propionate (Flonase) 50 mcg/actuation [place], Suspension 1 spray by Each Nare route [...] AM EST Hospital Encounter Non-[place] [address] Arrived documented as of this [...] filedocumented in this encounter Care Teams Head Greenskeeper Relationship Specialty Start Date End Date Lolly Oliveira MD [address] [place] [address] PCP - General 07/17/13 documented as of this encounter
--- OUTSIDE RECORDS SUMMARY | 2023-12-31 11:10 | XMS_ITS | Clinical Summary ---
Author Organization [facility] Address [address] [place] [address] Care Team Providers Care Structural Mill Supervisor Name Role Phone Lolly Oliveira MD Primary Care Provider [phone] Social History Tobacco Use Types Packs/Day Years [...] COVID-19 Vaccine ( season) 2023 Care Teams Structural Mill Supervisor Relationship Specialty Start Date End Date Lolly Oliveira MD [address] [place], [place] [id number] PCP - General 11/13/08
--- OUTSIDE RECORDS SUMMARY | 2023-12-31 11:10 | XMS_ITS | Encounter Summary ---
Author Organization [facility] Address [address] [place] [address] Care Team Providers Care Probate Clerk Name Role Phone Lolly Oliveira MD Primary Care Provider [phone] Encounter Details Date Type Department Care Team (Late st Contact Info) Description 06/16/2012 Results Only [facility] Laboratory Services - [facility] ([facility] [address] [place], [place] [phone] Lolly Oliveira MD [address] [place], [place] [phone] Social History Tobacco Use Types Packs/Day Years [...] ? JING ALVARENGA ? Accession #: ? [id number] : ? 1950 (Age: 61) ??F ?Collect [...] MD PATHOLOGY ORDERABLES [facility] [address] [place] [address] documented in this encounter Visit Diagnoses Not on filedocumented in this encounter Care Teams Probate Clerk Relationship Specialty Start Date End Date Lolly Oliveira MD [address] [place] [address] PCP - General 11/13/08 documented as of this encounter
--- OUTSIDE RECORDS SUMMARY | 2023-12-31 11:10 | XMS_ITS | Encounter Summary ---
Author Organization [facility] Address [facility] [place] [address] Care Team Providers Care Certified Drug Counselor Name Role Phone Lolly Oliveira MD Primary Care Provider [phone] Encounter Details Date Type Department Care Team (Late st Contact Info) Description 01/29/2023 Notes Only Cardiology at [address] [address] Merle Lin PA [facility] [place] [address] Social History Tobacco Use Types Packs/Day Years [...] pdf document Date of transmission: 01/29/2023 Device director life insurance: [employer] Device type: HOME HELP AIDE-D Presenting rhythm: /RVP/LVP AP 21% Right BONSAI TENDER 100% Left BONSAI TENDER: 100% Battery: 10.5 years Heart[employer] Index rising in setting of increasing S3 intensity, increasing respiratory rate, increasing night heart rate, and increasing mean heart rate. MICKEY Villa 01/29/2023 9:06 AM documented in this encounter Plan of Treatment Upcoming Encounters Date Type Department Care Team (Late st Contact Info) Description 01/16/2024 10:00 AM EST Hospital Encounter Non-[place] [address] Arrived documented as of this encounter Visit Diagnoses Not on filedocumented in this encounter Care Teams Certified Drug Counselor Relationship Specialty Start Date End Date Lolly Oliveira MD [address] [place] [address] PCP - General 07/17/13 documented as of this encounter
--- OUTSIDE RECORDS SUMMARY | 2023-12-31 11:10 | XMS_ITS | Encounter Summary ---
Author Organization [facility] Address [address] [place] [address] Care Team Providers Care Netting Inspector Name Role Phone Lolly Oliveira MD Primary Care Provider [phone] Encounter Details Date Type Department Care Team (Late st Contact Info) Description 03/06/2003 Results Only [facility] conversion [address] [place] [address] Lolly Oliveira MD [address] [place], [place] [phone] Social History Tobacco Use Types Packs/Day Years [...] Oliveira MD PATHOLOGY ORDERABLES Performing Organization Address City/State/[facility] Co de Phone Number [facility] [address] [place] [address] documented in this encounter Visit Diagnoses Not on filedocumented in this encounter Care Teams Netting Inspector Relationship Specialty Start Date End Date Lolly Oliveira MD [address] [place] [address] PCP - General 11/13/08 documented as of this encounter
--- OUTSIDE RECORDS SUMMARY | 2023-12-31 11:10 | XMS_ITS | Encounter Summary ---
Author Organization [facility] Address [facility] [place] [address] Care Team Providers Care Looping Machine Operator Name Role Phone Lolly Oliveira MD Primary Care Provider Encounter Details Date Type Department Care Team (Late st Contact Info) Description 05/03/2023 Telephone Cardiology at [address] [phone] Lalit Mcmahon MD [facility] [place] [address] Social History Tobacco Use Types Packs/Day Years Used Date Smoking Tobacco: Never Alcohol Use Standard Drinks/Week Comments Not Currently 0 (1 standard drink = 0.6 oz pur e alcohol) [facility] Inpatient Questions Answer Date Recorded [...] AM EST Hospital Encounter Non-[place] [address] Arrived documented as of this encounter Visit Diagnoses Not on filedocumented in this encounter Care Teams Looping Machine Operator Relationship Specialty Start Date End Date Lolly Oliveira MD [address] [place] [address] PCP - General 07/17/13 documented as of this encounter
--- OUTSIDE RECORDS SUMMARY | 2023-12-31 11:10 | XMS_ITS | Encounter Summary ---
Author Organization [facility] Address [address] [place] [address] Care Team Providers Care Regional Ehs Manager Name Role Phone Lolly Oliveira MD Primary Care Provider [phone] Encounter Details Date Type Department Care Team (Late st Contact Info) Description 05/29/2002 Results Only [facility] [address] [place] [address] Silvia Diehl, [address] [place] [phone] Social History Tobacco Use Types Packs/Day Years [...] ? JING MOTT ? Accession #: ? [id number] : ? 1950 (Age: 51) ??F ?Collect Date: ? 05/29/2002 Location: ? [facility] ? Receive Date: ? 05/31/2002 Provider: ?SILVIA DIEHL BLADDER TIER Copy to: ? Specimen/Source: ?ThinPrep Pap Test, [...] Report [facility] 05/29/2002 05/31/2002 Silvia Diehl BLADDER TIER PATHOLOGY ORDERABLES [facility] [address] [place] [address] documented in this encounter Visit Diagnoses Not on filedocumented in this encounter Care Teams Regional Ehs Manager Relationship Specialty Start Date End Date Lolly Oliveira MD [address] [place] [address] PCP - General 11/13/08 documented as of this encounter
--- OUTSIDE RECORDS SUMMARY | 2023-12-31 11:10 | XMS_ITS | Encounter Summary ---
Author Organization [facility] Address [address] [place] [address] Care Team Providers Care Hr Business Partner Name Role Phone Lolly Oliveira MD Primary Care Provider [phone] Encounter Details Date Type Department Care Team (Late st Contact Info) Description 04/01/2005 Results Only [facility] - [place] conversion [address] [place] [address] Blair Dukes MD [address] [place] [id number] Social History Tobacco Use Types Packs/Day Years [...] ? JING ALVARENGA ? Accession #: ? [id number] ? : ? 1950 (Age: 54) ??F [...] ? Received in [place]e' s fixative labelled [place] and #1 ??terminal ileum bx is a single 0.3 x 0.2 x 0.2 cm tissue, submitted intact as (A). Received in [place]e' s fixative labelled [place] and #2 ??transverse colon bx is a single 0.2 x 0.2 x 0.2 cm tissue, submitted intact as (B). ??(Dr. Lechuga)/[facility] End of Report [facility] 04/01/2005 04/02/2005 15: 24 EST Blair Dukes MD PATHOLOGY ORDERABLES [facility] [address] [place] [address] documented in this encounter Visit Diagnoses Not on filedocumented in this encounter Care Teams Hr Business Partner Relationship Specialty Start Date End Date Lolly Oliveira MD [address] [place] [address] PCP - General 11/13/08 documented as of this encounter
--- OUTSIDE RECORDS SUMMARY | 2023-12-31 11:10 | XMS_ITS | Encounter Summary ---
Author Organization [facility] Address [address] [place] [address] Care Team Providers Care Pattern And Chain Maker Name Role Phone Lolly Oliveira MD Primary Care Provider [phone] Encounter Details Date Type Department Care Team (Late st Contact Info) Description 11/13/2020 Lab Requisition [facility] Pathology & Laboratory Medicine - [address] [phone] Outr Resulting Lab, Provider Social History Tobacco [...] Resulting Lab MICROBIOLOGY - GENERAL ORDERABLES [facility] [address] [place] [address] * COVID-19 TESTING (11/13/2020 7:30 EDT) COVID-19 rt-PCR Result Negative Negative 11/14/2020 11:[address] [facility] Comment: This test has [...] performed using the med SARS-CoV-2 assay ([employer] on the Med 6800 System Performing Lab Med 6800 [facility] Lab 11/14/2020 11:[address] [facility] Swab 11/13/2020 7:30 EDT 11/13/2020 20:57 EDT Provider Outr Resulting Lab MICROBIOLOGY - GENERAL ORDERABLES [facility] [address] [place] [address] documented in this encounter Visit Diagnoses Not on filedocumented in this encounter Care Teams Pattern And Chain Maker Relationship Specialty Start Date End Date Lolly Oliveira MD [address] [place] [address] PCP - General 11/13/08 documented as of this encounter
--- OUTSIDE RECORDS SUMMARY | 2023-12-31 11:10 | XMS_ITS | Encounter Summary ---
Author Organization [facility] [place] [address] Care Team Providers Care Supervisor Filter Assembly Name Role Phone Lolly Oliveira MD Primary Care Provider [phone] Encounter Details Date Type Department Care Team (Late st Contact Info) Description 11/16/2022 Telephone Cardiology at [address] [phone] Luna Rousseau, RN Social History Tobacco Use [...] today was 118/[address] [facility]. Pt is going twice a week [...] CARE CENTER Hospital Encounter Non-[place]vasive [place] [phone] Arrived documented as of this encounter Visit Diagnoses Not on filedocumented in this encounter Care Teams Supervisor Filter Assembly Relationship Specialty Start Date End Date Lolly Oliveira MD [address] [place] [address] PCP - General 07/17/13 documented as of this encounter
--- OUTSIDE RECORDS SUMMARY | 2023-12-31 11:10 | XMS_ITS | Encounter Summary ---
Author Organization [facility] [place] [address] Care Team Providers Care Mold Cutting Machine Operator Name Role Phone Lolly Oliveira MD Primary Care Provider [phone] Encounter Details Date Type Department Care Team (Late st Contact Info) Description 05/18/2023 Refill Dermatology at [address] [phone] Nora Meredith LPN Social [...] patient. She voiced understanding. Order sent to [facility] drug. documented in this encounter Plan of Treatment Upcoming Encounters Date Type Department Care Team (Late st Contact Info) Description 01/16/2024 10:00 AM EST Hospital Encounter Non-Invasive [place] [address] Arrived documented as of this encounter Visit Diagnoses Not on filedocumented in this encounter Care Teams Mold Cutting Machine Operator Relationship Specialty Start Date End Date Lolly Oliveira MD [address] [place] [address] PCP - General 07/17/13 documented as of this encounter
--- OUTSIDE RECORDS SUMMARY | 2023-12-31 11:10 | XMS_ITS | Encounter Summary ---
Author Organization [facility] [place] [address] Care Team Providers Care Fire Claims Adjuster Name Role Phone Lolly Oliveira MD Primary Care Provider [phone] Reason for Visit * Reason Comments Follow-up 8 weeks UVB treatmen t twice weekly Encounter Details Date Type Department Care Team (Late st Contact Info) Description 07/19/2023 11:00 AM EDT Office Visit Dermatology at [address] [phone] Clay Ramírez MD [address], ERIKA A DERMATOLOGY [place], [place] [phone] Psoriasis Social History Tobacco Use Types Packs/Day [...] [facility] Hospital Encounter Non-[place] [address] Arrived documented as of this encounter Visit Diagnoses Diagnosis Psoriasis Other psoriasis documented in this encounter Care Teams Fire Claims Adjuster Relationship Specialty Start Date End Date Lolly Oliveira MD [address] [place] [address] PCP - General 07/17/13 documented as of this encounter
--- OUTSIDE RECORDS SUMMARY | 2023-12-31 11:10 | XMS_ITS | Encounter Summary ---
Author Organization [facility] Address [address] [place] [address] Care Team Providers Care Patient Flow Coordinator Name Role Phone Lolly Oliveira MD Primary Care Provider [phone] Encounter Details Date Type Department Care Team (Late st Contact Info) Description 04/12/2007 Results Only [facility] [place] conversion [address] [place] [address] Lolly Oliveira MD [address] [place], [place] [id number] Social History Tobacco Use Types Packs/Day Years [...] ? JING ALVARENGA ? Accession #: ? [id number] : ? 1950 (Age: 56) ??F ?Collect Date: ? 04/12/2007 Location: ? [facility] ? Receive Date: ? 04/13/2007 Provider: ?LOLLY OLIVEIRA MD Copy to: ? Specimen/Source: ?ThinPrep Pap Test, Cervix/Endocervix, processed on [employer] ThinPrep Imaging System, with manual evaluation Last [...] Oliveira MD PATHOLOGY ORDERABLES [facility] [address] [place] [address] documented in this encounter Visit Diagnoses Not on filedocumented in this encounter Care Teams Patient Flow Coordinator Relationship Specialty Start Date End Date Lolly Oliveira MD [address] [place] [address] PCP - General 11/13/08 documented as of this encounter
--- OUTSIDE RECORDS SUMMARY | 2023-12-31 11:10 | XMS_ITS | Encounter Summary ---
Author Organization [facility] [place] [address] Care Team Providers Care Redipper Name Role Phone Lolly Oliveira MD Primary Care Provider [phone] Encounter Details Date Type Department Care Team (Late st Contact Info) Description 05/18/2023 Telephone Dermatology at [address] [phone] Nora Meredith LPN Social History [...] [facility] Hospital Encounter Non-[place] [phone] Arrived documented as of this encounter Visit Diagnoses Not on filedocumented in this encounter Care Teams Redipper Relationship Specialty Start Date End Date Lolly Oliveira MD [address] [place] [address] PCP - General 07/17/13 documented as of this encounter
--- OUTSIDE RECORDS SUMMARY | 2023-12-31 11:10 | XMS_ITS | Encounter Summary ---
Author Organization [facility] Address [address] [place] [address] Care Team Providers Care Educational Institution Curator Name Role Phone Lolly Oliveira MD Primary Care Provider [phone] Encounter Details Date Type Department Care Team (Late st Contact Info) Description 02/11/2021 Lab Requisition [facility] Pathology & Laboratory Medicine - [address] [address] Outr Resulting Lab, Provider Social History Tobacco [...] [facility] [address] [place] [address] * COVID-19 TESTING (02/11/2021 8:00 EST) COVID-19 rt-PCR Result Negative Negative 02/12/2021 14:[address] [facility] Comment: This test has [...] was performed using the med SARS-CoV-2 assay ([employer] on the Med 6800 System Performing Lab Med 6800 [facility] Lab 02/12/2021 14:[address] [facility] Swab 02/11/2021 8:00 EST 02/11/2021 22:22 EST Provider Outr Resulting Lab MICROBIOLOGY - GENERAL ORDERABLES [facility] [address] [place] [address] documented in this encounter Visit Diagnoses Not on filedocumented in this encounter Care Teams Educational Institution Curator Relationship Specialty Start Date End Date Lolly Oliveira MD [address] [place] [address] PCP - General 11/13/08 documented as of this encounter
--- OUTSIDE RECORDS SUMMARY | 2023-12-31 11:10 | XMS_ITS | Encounter Summary ---
Author Organization [facility] [place] [address] Care Team Providers Care Manager Lighting Name Role Phone Lolly Oliveira MD Primary Care Provider [phone] Encounter Details Date Type Department Care Team (Latest Contact Info) Description 04/21/2023 10:00 AM EST - 04/21/2023 11:59 PM EST Hospital Encounter [place] [phone] Discharge Disposition: Home Social History Tobacco Use [...] AM EST Hospital Encounter Non[place] [address] Arrived documented as of this [...] filedocumented in this encounter Care Teams Manager Lighting Relationship Specialty Start Date End Date Lolly Oliveira MD [address] [place] [address] PCP - General 07/17/13 documented as of this encounter
--- OUTSIDE RECORDS SUMMARY | 2023-12-31 11:10 | XMS_ITS | Encounter Summary ---
Author Organization [facility] [place] [address] Care Team Providers Care Chamber Magistrate Name Role Phone Lolly Oliveira MD Primary Care Provider Reason for Visit * Reason Onset Date Comments Post Procedure Call 07/30/2022 Encounter Details Date Type Department Care Team (Late st Contact Info) Description 07/30/2022 Notes Only Cardiology at [address] [phone] Rosenda Sutton, RN Post Procedure Call Social History Tobacco Use Types Packs/Day Years Used Date Smoking Tobacco: Never Alcohol Use Standard Drinks/Week Comments Not Currently 0 (1 standard drink = 0.6 oz pur e alcohol) [facility] Inpatient Questions Answer Date Recorded [...] 07/30/2022 9:59 AM EDTSummary: Post Procedure Call: THEOLOGY PROFESSOR implant EP RN Post-Procedure Note: Date of Follow Up Call: 07/30/2022 Spoke With: Patient Procedure Type (choose all that apply): ICD Performing MIRLANDE Mcmahon Date of Procedure: 07/23/2022 Date of Discharge: 07/24/2022 Follow Up EP Visit Scheduled?: No No Follow Up Visit Reason: Follow up outside Outside Location: [facility] Date of Non EP [...] Note: Follow-up Recommendations for Providers: - s/p THEOLOGY PROFESSOR-D implant - post implant QRS 130 ms [...] [facility] Hospital Encounter Non[place] [address] Arrived documented as of this encounter Visit Diagnoses Not on filedocumented in this encounter Care Teams Chamber Magistrate Relationship Specialty Start Date End Date Lolly Oliveira MD [address] [place] [address] PCP - General 07/17/13 documented as of this encounter
--- OUTSIDE RECORDS SUMMARY | 2023-12-31 11:10 | XMS_ITS | Encounter Summary ---
Author Organization [facility] Address [facility] [place] [address] Care Team Providers Care Concrete Products Machine Operator Name Role Phone Lolly Oliveira MD Primary Care Provider [phone] Reason for Visit * Auth/Cert (Routine) Specialty Diagnoses / Procedures Referred By Contac t Referred To Contact Diagnoses Left bundle-branch block, unspecified Other cardiomyopathies Left bundle branch block [I44.7]Nonischemic cardiomyopathy [I42.8] Procedures PRG CATH PLMT LEFT HEART CATH & ARTS W/INJ & ANGIO IMG S&I ELECTROPHYSIOLOGY PROCEDURE Lalit Mcmahon MD [facility] [place] [address] [facility] Referral ID Status Reason Start Date Expiration Date Visits Re quested Visits Authorized [id number] 1 1 Encounter Details Date Type Department Care Team (Latest Contact Info) Description 07/23/2022 11:39 AM EDT - 07/24/2022 10:23 AM EDT [place] [id number] Lalit Mcmahon MD [facility] [place] [address] Left bundle branch block; Nonischemic cardiomyopathy; Cardiac resynchronization therapy defibrillator (CODE AND TEST CLERK-D) in place Discharge Disposition: Home Social [...] Luna Mott Patient Age: 71 y.o. Language: [place] Island[place] Race: White Ethnicity: Not nor Admit date: 07/23/2022 Discharge date and time: 07/24/22 Attending Physician: Lalit Mcmahon MD Discharge Physician: Lalit Mcmahon MD Follow-up Recommendations for Providers: - s/p CODE AND TEST CLERK-D implant - post implant QRS 130 [...] lentigo Operations/Major Procedures: 07/23/22: [facility] CODE AND TEST CLERK-D implant History of Presentation: 71 y.o. female with a history of HFrEF, LBBB, QRS >150, NYHA II who is POD#1 of CODE AND TEST CLERK-D implant ([employer]). Hospital Course: Elective admission for CODE AND TEST CLERK-D implant Admitted post-implant for pain management, [...] (heart failure with reduced ejection fraction) [I50.20] CODE AND TEST CLERK-D implant Admission Condition: good Indication for [...] g Refills: 3 fluticasone propionate 50 mcg/actuation [place], Suspension Commonly known as: Flonase 1 spray [...] the incision. Make sure to use a dry folder cloth (such as a towel) in between [...] F. The office scheduling phone number is [phone]. ARM MOVEMENT RESTRICTIONS POST-IMPLANT - Do not [...] please call the Cardiac ElectrophysiologyTriage Nurse at [phone], option 3. General Instructions None Discharge References/Attachments None Lalit Mcmahon MD S Cardiac Electrophysiology 07/24/2022 12:33 PM documented in this encounter Discharge Instructions * Patient Instructions* Fadi Nunez MD - 07/24/2022 8:10 AM EDT FINAL ICD/PACEMAKER RECOMMENDATIONS: 1. Standard post implant discharge instructions (see below): 2. Medications as listed above. You may use ice packs over the incision. Make sure to use a dry folder cloth (such as a towel) in between [...] F. The office scheduling phone number is [phone]. ARM MOVEMENT RESTRICTIONS POST-IMPLANT - Do not [...] please call the Cardiac ElectrophysiologyTriage Nurse at [phone], option 3. documented in this encounter Medications [...] with spacer fluticasone propionate (Flonase) 50 mcg/actuation [place], Suspension 1 spray by Each Nare route [...] Cardiac Electrophysiology Post-Implant Device Interrogation Luna Mott [id number] 07/24/2022 History: Luna Mott is a 71 y.o. female with a history of HFrEF, LBBB, QRS >150, NYHA II who is POD#1 of CODE AND TEST CLERK-D implant ([employer]). Overall feels well this morning. Ready [...] WOB Neuro- A&Ox3 Device Interrogation: Data ?? Shoe Stainer Model # Serial # Generator [employer] [id number] Atrial Lead [employer] [id number] RV Lead [employer] 0672 [id number] LV Lead [employer] [id number] ?? Diagnostics Pacing Mode: DDD 60-130 Underlying Rhythm: [place] Atrial Episodes: None Ventricular Episodes: None FINAL PROGRAMMING: Pacing: Mode Lower rate (ppm) Upper rate (ppm) ?? DDD 60 130 VF: Rate (bpm) #Antitachycardia pacing First shock energy (J) ?? 200 Quick convert 41 VT: 170 Monitor only Monitor only ? Battery and Leads Impedances (ohms) Sensing (mV) Thresholds HV RA RV LV RA RV LV RA RV LV 73 [phone] (LVa) 7.7 13.1 >25 0.4V @ 0.4 ms 0.4V @ 0.4 ms 0.5 V @ 1.0 ms POD#1 CXR: All leads in nominal positioning Impression: 71 y.o. female who is s/p CODE AND TEST CLERK-D implant for LBBB, NYHA II, HFrEF. [...] ([facility]) Fadi Nunez MD 07/24/2022 Pager: [phone] I met with the patient today and [...] agreement. ? Dr. Lalit Mcmahon, electrophysiology attending ([id number]) * Zaria Wright RN - 07/23/2022 8:28 [...] HF, QRS > 150 ms presents for CODE AND TEST CLERK-D placement. ROS: Denies recent fevers or [...] 0.9) flush 5 mL 5 mL Intravenous [id number] ramos MD ??? sodium chloride 0.9 % [...] HF, QRS > 150 ms presents for CODE AND TEST CLERK-D placement. Backup would be LBBAP lead. Antibiotics: cefazolin Rationales for, intended benefits and potential risk of planned procedures reviewed. The patient indicated understanding and agreement with the plan. Informed consent signed. Procedure checklist completed. Fadi Nunez MD Cardiac Electrophysiology Fellow [facility] Pager [phone] 07/23/2022 I met with the patient today [...] ? Dr. Lalit Mcmahon, electrophysiology attending ([id number]) documented in this encounter Miscellaneous Notes * Brief Op Note - Lalit Mcmahon MD - 07/23/2022 4:04 PM EDT Brief Operative Note Patient Name: Luna Mott : [id number] MR#: [id number] Case Date: 07/23/2022 Surgeon: Surgeon(s) and Role: [...] AM EST Hospital Encounter [place] [address] Arrived Scheduled Orders Name Type Priority Associated Diagnoses Orde r Schedule EKG 12 Lead ECG Routine Cardiac resynchronization therapy defibrillator (CODE AND TEST CLERK-D) in place One Time for 1 [...] (Bezet) 522 ms MUSE SYSTEM Calculated R [place] 78 degrees MUSE SYSTEM Calculated T [place] -71 degrees MUSE SYSTEM INTERPRETATION AV dual-paced [...] have questions please contact the health childcare center director that requested your imaging first. ? Electronically signed by: Kwame Vargas MD, [facility] ([phone]), at 07/24/2022 6:43 AM Narrative 07/24/2022 6:43 [...] who have questions please contactthe health childcare center director that requested your imaging first. Electronically signed by: Kwame Vargas MD, [facility]([phone]), at 07/24/2022 6:43 AM Lalit Mcmahon MD IMG DX ORDERABLES * ELECTROPHYSIOLOGY PROCEDURE (07/23/2022 1:11 PM EDT) Anatomical Region Laterality Modality Other Narrative 07/23/2022 4:24 PM EDT Table formatting from the original result was not included. BIVENTRICULAR ICD IMPLANTATION Student Services Representative: Lalit Mcmahon MD Fellow: Fadi Nunez [...] lateral branch of the CS in the [place] view. This branch was cannulated with a [...] the entire procedure. LEAD AND GENERATOR DATA: Shoe Stainer Model # Serial # Generator [employer] [id number] Atrial Lead [employer] [id number] [id number] RV Lead [employer] 0672 [id number] LV Lead [employer] [id number] PACE/SENSE DATA: Sensed wave (mV) Threshold (V) [...] (cGycm2) 300 CONCLUSIONS: Successful implantation of a [employer] biventricular ICD for primary prevention and treatment of symptoms related to congestive heart failure. Follow up in EP clinic in 1-2 months. Procedures performed: new ICD system ( cpt 06452-B2); implant LV lead at time of ICD insertion (cpt 62148) I have read, edited and approve of this report: Lalit Mcmahon MD S Cardiac Electrophysiology 07/23/2022 4:22 PM Procedure Note Lalit Mcmahon MD - 07/23/2022 BIVENTRICULAR ICD IMPLANTATION Student Services Representative: Lalit Mcmahon MD Fellow: Fadi Nunez [...] appropriate lateralbranch of the CS in the [place] view. This branch was cannulated with a [...] in the entireprocedure. LEAD AND GENERATOR DATA: Shoe Stainer Model # Serial # Generator [employer] [id number] Atrial Lead [employer] [id number] [id number] RV Lead [employer] 0672 [id number] LV Lead [employer] [id number] PACE/SENSE DATA: Sensed wave (mV) Threshold (V) [...] (cGycm2) 300 CONCLUSIONS: Successful implantation of a [employer] biventricular ICD forprimary prevention and treatment of symptoms related to congestive heartfailure. Follow up in EP clinic in 1-2 months. Procedures performed: new ICD system ( cpt 06559-K4); implant LV lead attime of ICD insertion (cpt 65857) I have read, edited and approve of this report: Lalit Mcmahon MD [facility] Cardiac Electrophysiology 07/23/2022 4:22 PM Lalit Mcmahon MD EP PROCEDURE ORDERAB LES * POCT Glucose (07/23/2022 12:54 PM EDT) Glucose, POC 83 65 - 199 mg/dL [facility] Comment: Supplemental ranges: <140 mg/dL before meals <180 mg/dL all other times of the day Blood 07/23/2022 12:5 4 PM EDT 07/23/2022 12:54 PM EDT Lalit Mcmahon MD POINT OF CARE TEST O RDERABLES Performing Organization Address [facility] Co de Phone Number [facility] [place] [address] * EKG 12 Lead (07/23/2022 12:33 PM EDT) Ventricular rate 72 BPM MUSE SYSTEM Atrial Rate 72 BPM MUSE SYSTEM P-R Interval 158 ms MUSE SYSTEM QRS Duration 176 ms MUSE SYSTEM Q-T Interval 458 ms MUSE SYSTEM QTC Calculated (Bezet) 501 ms MUSE SYSTEM Calculated P [place] 34 degrees MUSE SYSTEM Calculated R [place] 12 degrees MUSE SYSTEM Calculated T [place] -173 degrees MUSE SYSTEM INTERPRETATION Normal sinus rhythm Left bundle branch block Abnormal ECG No previous ECGs available Confirmed by MD Salome, Lalit ([id number]) on 07/23/2022 1:19:03 PM MUSE SYSTEM 07/23/2022 12:3 3 PM EDT 07/23/2022 1:19 PM EDT Lalit Mcmahon MD ECG ORDERABLES Performing Organization Address [facility] de Phone Number MUSE SYSTEM * Differential, Automated (07/23/2022 11:55 AM EDT) Neutrophil % 62.6 % [facility] Neutrophil Absolute 4.14 1.70 - 6.10 x10(3)/[facility] Lymph % 27.0 % [facility] Lymphocytes Abs 1.8 0.9 - 3.2 x10(3)/[facility] LAB[facility] Monocyte % 7.3 % [facility] Monocyte Abs 0.5 0.3 - 0.9 x10(3)/[facility] LABOR[facility]ORY Eos % 2.3 % [facility] Eosinophils Abs 0.2 0.0 - 0.4 x10(3)/[facility] LABOR[facility]ORY Basophil % 0.6 % [facility] IT[facility] LAB[facility]AT[facility] Baso Absolute 0.0 0.0 - 0.1 x10(3)/[facility] LAB[facility] Immature Gran % 0.20 % [facility] Comment: Immature granulocytes(IG's)percentage and absolute count will include metamyelocytes, myelocytes, and promyelocytes. Blood smears from CBCs yielding IG's will be scanned manually for concordance. If this scan disagrees with the automated IG or if promyelocytes are noted, a manual differential will be performed. Immature Gran Absolute 0.01 0.00 - 0.04 x10(3)/[facility] Blood 07/23/2022 11:5 5 AM EDT 07/23/2022 12:07 PM EDT Narrative Resulting Agency Comment Spec In Lab Lalit Mcmahon MD HEMATOLOGY ORDERABLE S [facility] [place] [address] * Hemogram (07/23/2022 11:55 AM EDT) White Blood Cell 6.6 4.0 - 9.5 x10(3)/[facility] Red Blood Cell 4.50 4.00 - 5.21 x10(6)/[facility] Hemoglobin 13.7 11.7 - 15.5 g/dL [facility] Hematocrit 42.5 35.7 - 45.8 % [facility] Mean Cell Volume 94.4 82.6 - 94.4 fL [facility] Mean Cell Hemoglobin 30.4 27.1 - 32.0 pg [facility] Mean Cell Hemoglobin Concentration 32.2 31.7 - 35.0 g/dL [facility] Platelet 193 145 - 357 x10(3)/[facility] LAB[facility] RDW Standard Deviation 45.5 37.0 - 46.0 fL [facility] RDW coefficient of variation 13.2 11.5 - 14.1 % [facility] Mean Platelet Volume 9.5 7.6 - 12.9 fL [facility] NRBC% auto 0.0 % [facility] NRBC Absolute 0.000 0.000 - 0.000 x10(3)/mcL [facility] Blood 07/23/2022 11:5 5 AM EDT 07/23/2022 12:07 PM EDT Narrative Resulting Agency Comment Spec In Lab Lalit Mcmahon MD HEMATOLOGY ORDERABLE S [facility] [address] [place] [address] * (ABNORMAL) BMP w/fasting Glucose (07/23/2022 11:55 AM EDT) Glucose Fasting 110(H) 65 - 99 mg/dL [facility] Comment: ?Fasting* Glucose Interpretive Criteria [...] of Diabetes Mellitus, Position Statement from the [place] [employer]. ??Diabetes Care, Volume 33, Supplement 1, Mar 2009 Blood Urea Nitrogen 23(H) 8 - 18 mg/dL [facility] Creatinine 1.07 0.70 - 1.20 mg/dL [facility] Sodium 141 135 - 145 mmol/L [facility] Potassium 4.8 3.5 - 5.0 mmol/L [facility] Comment: Please note: ??Patients with WBC >100,000 may have falsely elevated Potassium levels. ??For accurate Potassium quantification in these patients send serum separator tube (gold top) for subsequent determinations. ??Contact the Clinical Chemistry Laboratory if there are any questions. Chloride 106 98 - 107 mmol/L [facility] Carbon Dioxide 26 22 - 31 mmol/L [facility] Anion Gap 9 5 - 15 mmol/L [facility] Calcium 9.7 8.5 - 10.5 mg/dL [facility] Est Glomerular Filtration Rate 55(L) >=60 mL/min/1. 73 m?? [facility] Comment: This patient's estimated GFR [...] Mcmahon MD CHEMISTRY ORDERABLES Performing Organization Address [facility] Co de Phone Number [facility] [place] [address] * Prothrombin Time (07/23/2022 11:55 AM EDT) Prothrombin Time 11.7 9.4 - 12.5 sec [facility] International Normalization Ratio 1.0 [facility] Comment: An INR <2.0 indicates [...] MD HEMATOLOGY ORDERABLE S Performing Organization Address City/[facility] Co de Phone Number [facility] [place] [address] documented in this encounter Visit Diagnoses Diagnosis HFrEF (heart failure with reduced ejection fraction)- Primary Left bundle branch block Other left bundle branch block Nonischemic cardiomyopathy Other primary cardiomyopathies Cardiac resynchronization therapy defibrillator (CODE AND TEST CLERK-D) in place Left bundle branch block [...] Routine documented in this encounter Care Teams Concrete Products Machine Operator Relationship Specialty Start Date End Date Lolly Oliveira MD [address] [place] [address] PCP - General 07/17/13 documented as of this encounter
--- OUTSIDE RECORDS SUMMARY | 2023-12-31 11:10 | XMS_ITS | Encounter Summary ---
Author Organization [facility] [place] [address] Care Team Providers Care Energy Projects Lead Name Role Phone Lolly Oliveira MD Primary Care Provider [phone] Encounter Details Date Type Department Care Team [...] Hospital Encounter Non[place] [address] Arrived documented as of this encounter Visit Diagnoses Not on filedocumented in this encounter Care Teams Energy Projects Lead Relationship Specialty Start Date End Date Lolly Oliveira MD [address] [place] [address] PCP - General 07/17/13 documented as of this encounter
--- OUTSIDE RECORDS SUMMARY | 2023-12-31 11:10 | XMS_ITS | Encounter Summary ---
Author Organization [facility] Address [address] [place] [address] Care Team Providers Care Dermatology Specialist Name Role Phone Lolly Oliveira MD Primary Care Provider [phone] Encounter Details Date Type Department Care Team (Late st Contact Info) Description 03/21/2019 Lab Requisition [facility] - [address] [address] Unknown, Provider, Social History Tobacco Use Types [...] 211 - 911 pg/mL 03/22/2019 11:52 EST [facility] Blood VENOUS BLOOD / Unknown 03/16/2019 9:25 EST 03/21/2019 21:35 EST Provider Unknown CHEMISTRY & BLOOD GA S ORDERABLES [facility] [address] [place] [address] documented in this encounter Visit Diagnoses Not on filedocumented in this encounter Care Teams Dermatology Specialist Relationship Specialty Start Date End Date Lolly Oliveira MD [address] [place] [address] PCP - General 11/13/08 documented as of this encounter
--- OUTSIDE RECORDS SUMMARY | 2023-12-31 11:10 | XMS_ITS | Encounter Summary ---
Author Organization [facility] Address [address] [place] [address] Care Team Providers Care Skein Drier Name Role Phone Lolly Oliveira MD Primary Care Provider [phone] Encounter Details Date Type Department Care Team (Late st Contact Info) Description 05/27/2021 Lab Requisition [facility] Pathology & Laboratory Medicine - [address] [address] Iman Moran, DO [address] [place], [place] [id number] Encounter for other general examination Social History [...] management options, if applicable. 05/30/2021 13:31 EDT [facility] Final Diagnosis A. COLON, POLYP AT 90 CM, BIOPSY/POLYPECTOM Y: - Tubular adenoma. 05/30/2021 13:31 [facility] Attestation By the signature below, the attending physician certifies that they have 1) personally conducted a gross and/or microscopic examination of the described specimen(s), and/or personally interpreted the results of laboratory testing of the described specimen(s), and 2) personally rendered or confirmed the above diagnosis. 05/30/2021 13:31 [facility] at 1331 Clinical History Severe diverticula and polypectomy x1 05/30/2021 13:31 [facility] Gross Description A. Received in formalin labelled with proper patient identification (initials J, K) and colon polyp x1 at 90 cm is a light pineda polypoid tissue measuring 0.2 x 0.2 x 0.2 cm. Submitted intact in A1. MICKEY CARLOS(ASCP) 05/27/2021 19:11 05/30/2021 13:31 [facility] Performing Lab [facility] 05/30/2021 13:31 [facility] Scanned Images 05/30/2021 13:31 [facility] Tissue ENTIRE COLON / Unknown 05/27/2021 11:23 EDT 05/27/2021 16:33 EDT Iman Moran DO PATHOLOGY ORDERABLES [facility] [address] [place] [address] documented in this encounter Visit Diagnoses Diagnosis Encounter for other general examination documented in this encounter Care Teams Skein Drier Relationship Specialty Start Date End Date Lolly Oliveira MD [address] [place] [address] PCP - General 11/13/08 documented as of this encounter
--- OUTSIDE RECORDS SUMMARY | 2023-12-31 11:10 | XMS_ITS | Continuity of Care Document ---
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 here today for follow-up of cardiomyopathy, obesity MD [address], [place], [address], [facility]. 11/28/2023 09:26:44 OBGyn Episode No OBEpisode recorded.
--- OUTSIDE RECORDS SUMMARY | 2023-12-31 11:10 | XMS_ITS | Encounter Summary ---
Author Organization [facility] Address [facility] [place] [address] Care Team Providers Care Natural Gas Engineer Name Role Phone Lolly Oliveira MD Primary Care Provider [phone] Reason for Referral * Diagnostic Test (Routine) - Closed Specialty Diagnoses / Procedures Referred By Contkoki t Referred To Contact Cardiology Diagnoses Nonischemic cardiomyopathy Biventricular ICD (implantable cardioverter-defibrillator) in place Procedures Echocardiogram Transthoracic Llait Mcmahon MD [facility] [place] [address] Referral ID Status Reason Start Date Expiration Date V isits Requested Visits Authorized [id number] Closed Specialty Service Requested 03/15/2023 09/11/2023 1 1 Encounter Details Date Type Department Care Team (Late st Contact Info) Description 03/15/2023 Orders Only Cardiology at [address] [address] Lalit Mcmahon MD [facility] [place] [address] Nonischemic cardiomyopathy; Biventricular ICD (implantable cardioverter-defibrill ator) [...] Hospital Encounter Non[place] [address] Arrived Scheduled Orders Name Type Priority Associated Diagnoses Order Schedule Echocardiogram Transthoracic Echocardiography Routine Nonischemic cardiomyopathy Biventricular ICD (implantable cardioverter-defibr illator) in place Expected: 05/05/2023, Expires: 11/04/2023 documented as of this encounter Visit Diagnoses Diagnosis Nonischemic cardiomyopathy Other primary cardiomyopathies Biventricular ICD (implantable cardioverter-defibrillator) in place documented in this encounter Care Teams Natural Gas Engineer Relationship Specialty Start Date End Date Lolly Oliveira MD [address] [place] [address] PCP - General 07/17/13 documented as of this encounter
--- OUTSIDE RECORDS SUMMARY | 2023-12-31 11:10 | XMS_ITS | Encounter Summary ---
Author Organization [place] [address] Care Team Providers Care Shearing Shed Worker Name Role Phone Lolly Oliveira MD Primary Care Provider [phone] Encounter Details Date Type Department Care Team (Late st Contact Info) Description 03/17/2023 Telephone Cardiology at [address] [phone] Saranya Ma Social History Tobacco Use Types [...] faxed to [facility] at [phone]. No Prior auth needed. Ref #:[id number]. Saranya Ma Sr. Clinical Procedure [place]/Tomato Paste Maker documented in this encounter Plan of Treatment Upcoming Encounters Date Type Department Care Team (Late st Contact Info) Description 01/16/2024 10:00 AM [facility] Hospital Encounter [place] [address] Arrived documented as of this encounter Visit Diagnoses Not on filedocumented in this encounter Care Teams Shearing Shed Worker Relationship Specialty Start Date End Date Lolly Oliveira MD [address] [place] [address] PCP - General 07/17/13 documented as of this encounter
--- OUTSIDE RECORDS SUMMARY | 2023-12-31 11:10 | XMS_ITS | Encounter Summary ---
Author Organization [facility] [place] [address] Care Team Providers Care Interviewing Clerk Name Role Phone Lolly Oliveira MD Primary Care Provider [phone] Encounter Details Date Type Department Care Team (Latest Contact Info) Description 10/23/2022 10:00 AM EDT - 10/23/2022 11:59 PM EDT Hospital Encounter [place] [address] Discharge Disposition: Home Social History Tobacco Use [...] with spacer fluticasone propionate (Flonase) 50 mcg/actuation [place], Suspension 1 spray by Each Nare route [...] [facility] Hospital Encounter Non-[place] [address] Arrived documented as of this [...] on filedocumented in this encounter Care Teams Interviewing Clerk Relationship Specialty Start Date End Date Lolly Oliveira MD [address] [place] [address] PCP - General 07/17/13 documented as of this encounter
--- OUTSIDE RECORDS SUMMARY | 2023-12-31 11:10 | XMS_ITS | Encounter Summary ---
Author Organization [facility] Address [address] [place] [address] Care Team Providers Care Bobcat Operator Name Role Phone Lolly Oliveira MD Primary Care Provider Encounter Details Date Type Department Care Team (Late st Contact Info) Description 05/02/2004 Results Only [facility] [address] [place] [address] Lolly Oliveira MD [address] [place], [place] [id number] Social History Tobacco Use Types Packs/Day Years [...] 68. [facility] Report Status Final [id number] [facility] 05/02/2004 9:32 EST 05/10/2004 9:32 EST Lolly Oliveira MD MICROBIOLOGY - GENER AL ORDERABLES [facility] [address] [place] [address] * CYTOPATHOLOGY (05/02/2004 0:00 EST) Pathology Report: CYTOPATHOLOGY REPORT Reports generated via electronic interface contain original data; however they are lacking the format of the original report. Caution should be taken when reading/interpreti ng unformatted reports. Name: ? JING ALVARENGA ? Accession #: ? [id number] : ? 1950 (Age: 53) ??F ?Collect [...] PATHOLOGY ORDERABLES Performing Organization Address City/State/[facility] Co de Phone Number [facility] [address] [place] [address] documented in this encounter Visit Diagnoses Not on filedocumented in this encounter Care Teams Bobcat Operator Relationship Specialty Start Date End Date Lolly Oliveira MD [address] [place] [address] PCP - General 11/13/08 documented as of this encounter
--- OUTSIDE RECORDS SUMMARY | 2023-12-31 11:10 | XMS_ITS | Encounter Summary ---
Author Organization [facility] [place] [address] Care Team Providers Care Pharmacy Affairs Assistant Name Role Phone Lolly Oliveira MD Primary Care Provider [phone] Encounter Details Date Type Department Care Team (Late st Contact Info) Description 03/15/2023 Telephone Cardiology at [address] [phone] Saranya Ma Social History Tobacco Use Types Packs/Day Years Used Date Smoking Tobacco: Never Alcohol Use Standard Drinks/Week Comments Not Currently 0 (1 standard drink = 0.6 oz pur e alcohol) [facility]LY [facility], [facility] Inpatient Questions Answer Date Recorded Does [...] encounter Miscellaneous Notes * Telephone Encounter - Saarnya Ma - 03/15/2023 9:41 AM EST Call from pt asking if Dr. Mcmahon would like her to have an echo done at [facility] prior to her appt withscm there on 05/12/23. Message sent to Dr. Mcmahon asking him to put order in if he would like her to have this done. Saranya Ma Sr. Clinical Procedure [place]/Parking Station Attendant documented in this encounter Plan of Treatment Upcoming Encounters Date Type Department Care Team (Late st Contact Info) Description 01/16/2024 10:00 AM EST Hospital Encounter Non-Invasive [place] [address] Arrived documented as of this encounter Visit Diagnoses Not on filedocumented in this encounter Care Teams Pharmacy Affairs Assistant Relationship Specialty Start Date End Date Lolly Oliveira MD [address] [place] [address] PCP - General 07/17/13 documented as of this encounter
--- OUTSIDE RECORDS SUMMARY | 2023-12-31 11:10 | XMS_ITS | Encounter Summary ---
Author Organization [facility] Address [facility] [place] [address] Care Team Providers Care Ict Managers Name Role Phone Lolly Oliveira MD Primary Care Provider [phone] Encounter Details Date Type Department Care Team (Late st Contact Info) Description 11/11/2022 Orders Only Cardiology at [address] [phone] Lalit Mcmahon MD [facility] [place] [address] Nonischemic cardiomyopathy Social History Tobacco Use Types [...] [facility] Hospital Encounter Non-[place]vasive [place] [phone] Arrived documented as of this encounter Visit Diagnoses Diagnosis Nonischemic cardiomyopathy Other primary cardiomyopathies documented in this encounter Care Teams Ict Managers Relationship Specialty Start Date End Date Berrian, Lolly M, MD [address] [place] [address] PCP - General 07/17/13 documented as of this encounter
--- OUTSIDE RECORDS SUMMARY | 2023-12-31 11:10 | XMS_ITS | Encounter Summary ---
Author Organization [facility] Address [address] [place] [address] Care Team Providers Care Steam Frame Operator Name Role Phone Lolly Oliveira MD Primary Care Provider [phone] Encounter Details Date Type Department Care Team (Late st Contact Info) Description 02/20/2020 Lab Requisition [facility] Pathology & Laboratory Medicine - [address] [address] Outr Resulting Lab, Provider Social History Tobacco [...] in accordance with CLIA regulations, [employer] (CAP) guidelines (May 25, 2019), and FDA guidance (May 06, 2019). This test is only for use under the Food and Drug Administration's Emergency Use Authorization. Swab ENTIRE NASOPHARYNX / Unknown 02/19/2020 16:30 EST 02/20/2020 16:09 EST Provider Outr Resulting Lab MICROBIOLOGY - GENERAL ORDERABLES [facility] [place], MD * COVID-19 TESTING (02/19/2020 16:30 EST) COVID-19 rt-PCR Result NEGATIVE Negative 02/22/2020 23:41 EST [facility] Comment: 2019-novel Coronavirus (2019-nCoV) not [...] in accordance with CLIA regulations, [employer] [place] (CAP) guidelines (May 25, 2019), and FDA guidance (May 06, 2019). This test is only for use under the Food and Drug Administration's Emergency Use Authorization. Performing Lab [facility] 02/22/2020 23:41 EST [facility] Swab 02/19/2020 16:3 0 EST 02/20/2020 16:09 EST Provider Outr Resulting Lab MICROBIOLOGY - GENERAL ORDERABLES [facility] [address] [place] [address] [facility] [place], MD documented in this encounter Visit Diagnoses Not on filedocumented in this encounter Care Teams Steam Frame Operator Relationship Specialty Start Date End Date Lolly Oliveira MD [address] [place] [address] PCP - General 11/13/08 documented as of this encounter
--- OUTSIDE RECORDS SUMMARY | 2023-12-31 11:10 | XMS_ITS | Encounter Summary ---
Author Organization [facility] [place] [address] Care Team Providers Care Varnish Finisher Name Role Phone Lolly Oliveira MD Primary Care Provider [phone] Encounter Details Date Type Department Care Team (Latest Contact Info) Description 10/18/2023 10:00 AM EDT - 10/18/2023 11:59 PM EDT Hospital Encounter Non-Invasive [place] [address] Discharge Disposition: Home Social History Tobacco Use [...] with spacer fluticasone propionate (Flonase) 50 mcg/actuation [place], Suspension 1 spray by Each Nare route daily as needed. documented as of this encounter Plan of Treatment Upcoming Encounters Date Type Department Care Team (Late st Contact Info) Description 01/16/2024 10:00 AM EST Hospital Encounter Non-Invasive [place] [address] Arrived documented as of this encounter Procedures [...] on filedocumented in this encounter Care Teams Varnish Finisher Relationship Specialty Start Date End Date Lolly Oliveira MD [address] [place] [address] PCP - General 07/17/13 documented as of this encounter
--- OUTSIDE RECORDS SUMMARY | 2023-12-31 11:10 | XMS_ITS | Encounter Summary ---
Author Organization [facility] Address [address] [place] [address] Care Team Providers Care Wooden Tank Erector Name Role Phone Lolly Oliveira MD Primary Care Provider [phone] Encounter Details Date Type Department Care Team (Late st Contact Info) Description 04/17/2005 Results Only [facility] [address] [place] [address] Lolly Oliveira MD [address] [place], [place] [address] Social History Tobacco Use Types Packs/Day Years [...] ? JING ALVARENGA ? Accession #: ? [id number] : ? 1950 (Age: 54) ??F ?Collect Date: ? 04/17/2005 Location: ? [facility] ? Receive Date: ? 04/21/2005 Provider: ?LOLLY OLIVEIRA MD Copy to: ? Specimen/Source: ?ThinPrep Pap Test, Cervix/Endocervix, processed on GeewaPrep Imaging System, with manual evaluation Last Menstrual [...] Oliveira MD PATHOLOGY ORDERABLES [facility] [address] [place] [address] documented in this encounter Visit Diagnoses Not on filedocumented in this encounter Care Teams Wooden Tank Erector Relationship Specialty Start Date End Date Lolly Oliveira MD [address] [place] [address] PCP - General 11/13/08 documented as of this encounter
--- OUTSIDE RECORDS SUMMARY | 2023-12-31 11:10 | XMS_ITS | Encounter Summary ---
Author Organization [facility] Address [address] [place] [address] Care Team Providers Care Motion Picture Projectionist Apprentice Name Role Phone Lolly Oliveira MD Primary Care Provider Encounter Details Date Type Department Care Team (Late st Contact Info) Description 04/25/[address] [facility] Laboratory Services - [facility] [address] [place], [place] [id number] Lolly Oliveira MD [address] [place], [place] [phone] Social History Tobacco Use Types Packs/Day Years [...] ? JING ALVARENGA ? Accession #: ? [id number] ? : ? 1950 (Age: 58) ??F [...] PATHOLOGY ORDERABLES [facility] [address] [place] [address] documented in this encounter Visit Diagnoses Not on filedocumented in this encounter Care Teams Motion Picture Projectionist Apprentice Relationship Specialty Start Date End Date Lolly Oliveira MD [address] [place] [address] PCP - General 11/13/08 documented as of this encounter
--- OUTSIDE RECORDS SUMMARY | 2023-12-31 11:10 | XMS_ITS | Clinical Summary ---
Author Organization [facility] [place] [address] Care Team Providers Care Clinical Advisor Name Role Phone Lolly Oliveira MD Primary Care Provider [phone] Allergies Active Allergy Reactions Criticality Noted Date [...] spacer Active fluticasone propionate (Flonase) 50 mcg/actuation [place], Suspension 1 spray by Each Nare route [...] EDT Hospital Encounter Non-Invasive [place] [address] Discharge Disposition: Home from Last [...] EST Hospital Encounter Non-Invasive [place] [address] Arrived Health Maintenance Due Date Last Done [...] series) 11/07/2023 Medical Devices Implanted Type Area Smoke Jumper Supervisor Device Identifier Shelf Expiration Date Model / Serial / Lot Bsx: [id number]: [id number]/18/2 023 Implanted: by Lalit Mcmahon MD (Quantity not on file) Defibrillator Chest Wall [employer] [id number] / [id number] / Bsx: [id number]: [id number]/18/2 023 Implanted: by Lalit Mcmahon MD (Quantity not on file) Lead Heart [employer] 4674 / [id number] / Bsx: [id number]: [id number] Implanted: by Lalit Mcmahon MD (Quantity not on file) Lead Heart [employer] [id number] / [id number] / Bsx: [id number]: [id number]/18/2 023 Implanted: by Lalit Mcmahon MD (Quantity not on file) Lead Heart [employer] 0672 / [id number] / Procedures Procedure Name Priority Date/Time Associated [...] Status decision made by: Patient Care Teams Clinical Advisor Relationship Specialty Start Date End Date Lolly Oliveira MD [address] [place] [address] PCP - General 07/17/13
--- OUTSIDE RECORDS SUMMARY | 2023-12-31 11:10 | XMS_ITS | Referral Summary ---
Author Organization [facility] Address [address] [place] [address] Care Team Providers Care Phone Representative Name Role Phone Lolly Oliveira MD Primary Care Provider [phone] Social History Tobacco Use Types Packs/Day Years Used Date Smoking Tobacco: Never Assessed Sex and Gender Information Value Date Recorded Sex Assigned at Not on file Gender Identity Not on file Sexual Orientation Not on file Plan of Treatment Not on file Care Teams Phone Representative Relationship Specialty Start Date End Date Lolly Oliveira MD [address] [place] [address] PCP - General 11/13/08
--- OUTSIDE RECORDS SUMMARY | 2023-12-31 11:10 | XMS_ITS | Encounter Summary ---
Author Organization [facility] Address [address] [place] [address] Care Team Providers Care Cabinet Builder Name Role Phone Unavailable Primary Care Provider Unavailabl e Encounter Details Date Type Department Care Team (Late st Contact Info) Description 11/07/2008 Orders Only [facility] Laboratory Services - [facility] [address] [place] [address] Kenneth Parker MD [address] [place] [address] Social History Tobacco Use Types Packs/Day Years [...] ? LYLE, JING ? Accession #: ? [id number] ? : ? 1950 (Age: 58) ??F [...] Co de Phone Number [facility] [address] [place] [address] documented in this encounter Visit Diagnoses Not on filedocumented in this encounter
--- OUTSIDE RECORDS SUMMARY | 2023-12-31 11:11 | XMS_ITS | Encounter Summary ---
[place] [address] Care Team Providers Care Dwarf Tree Grower Name Role Phone Lolly Oliveira MD Primary Care Provider [phone] Encounter Details Date Type Department Care Team (Latest Contact Info) Description 07/26/2013 9:45 AM EDT - 07/26/2013 11:59 PM EDT Hospital [place] [address] Mammographic microcalcification Social History Tobacco Use Types [...] AM EST Hospital Encounter Non-[place] [address] Arrived documented as of this encounter Procedures Procedure Name Priority Date/Time Associated Diagnosis Comments SURGICAL PATHOLOGY REPORT Routine 07/26/2013 12:12 PM EDT MAMMO SPECIMEN IMAGING DURING BIOPSY Routine 07/26/2013 11:58 AM EDT Mammographic microcalcification documented in this encounter Results * Surgical Pathology Report (07/26/2013 12:12 PM EDT) Final Diagnosis ? [facility] ? Provider: ?? ELENO CHRISTIAN ?? Pt. Name: ?? JING ALVARENGA ? Acc #: ?[id number] ?Pt. ? Col Date: ?? 07/26/2013 ? [...] Partially fragmented, fibrofatty needle core biopsies. ? [facility] ? Provider: ?? ELENO CHRISTIAN ?? Pt. Name: ?? JING ALVARENGA ? Acc #: ?[id number] ?Pt. ? Col Date: ?? 07/26/2013 ? [...] FCD, adenosis, DCIS 07/28/2013 8:29 AM EDT [facility] BREAST STRUCTURE / Unknown 07/26/2013 12:12 PM EDT 07/26/2013 12:12 PM EDT Eleno Christian MD PATHOLOGY/CYTOLOGY O RDERABLES Performing Organization Address City/State/[facility] Co co Phone Number [facility] [place] [address] * Mammo Specimen Imaging During Biopsy (07/26/2013 [...] microcalcification documented in this encounter Care Teams Dwarf Tree Grower Relationship Specialty Start Date End Date Lolly Oliveira MD [address] [place] [address] PCP - General 07/17/13 documented as of this encounter
--- OUTSIDE RECORDS SUMMARY | 2023-12-31 11:11 | XMS_ITS | Encounter Summary ---
[place] [address] Care Team Providers Care Janitor And Cleaner Name Role Phone Lolly Oliveira MD Primary Care Provider [phone] Encounter Details Date Type Department Care Team [...] AM EST Hospital Encounter Non-[place] [address] Arrived documented as of this encounter Visit Diagnoses Not on filedocumented in this encounter Care Teams Janitor And Cleaner Relationship Specialty Start Date End Date Lolly Oliveira MD [address] [place] [address] PCP - General 07/17/13 documented as of this encounter
--- OUTSIDE RECORDS SUMMARY | 2023-12-31 11:11 | XMS_ITS | Encounter Summary ---
Author Organization [facility] [place] [address] Care Team Providers Care Customer Service Analyst Name Role Phone Lolly Oliveira MD Primary Care Provider [phone] Encounter Details Date Type Department Care Team (Latest Contact Info) Description 07/20/2013 9:26 AM EDT - 07/20/2013 11:59 PM EDT Hospital Encounter [place] [address] CLINIC, Lolly So MD [address] [place], [place] [id number] Mammographic microcalcification Discharge Disposition: Home Social History [...] AM EST Hospital Encounter [place] [address] Arrived documented as of this encounter Procedures [...] does not layer and, therefore, are not human resources representative of milk of calcium. Again, these [...] does not layer and, therefore, are not human resources representative of milk of calcium. Again, these have an amorphous andpunctate appearance and remain indeterminate. Stereotactic guided biopsy isrecommended. Alia Fraire MD IMG MAMMO ORDERABLES documented in this encounter Visit Diagnoses Diagnosis Mammographic microcalcification documented in this encounter Care Teams Customer Service Analyst Relationship Specialty Start Date End Date Lolly Oliveira MD [address] [place] [address] PCP - General 07/17/13 documented as of this encounter
--- OUTSIDE RECORDS SUMMARY | 2023-12-31 11:11 | XMS_ITS | Encounter Summary ---
Author Organization [facility] [place] [address] Care Team Providers Care Door Clamp Operator Name Role Phone Lolly Oliveira MD Primary Care Provider [phone] Reason for Visit * Reason Comments Skin Check Encounter Details Date Type Department Care Team (Late st Contact Info) Description 11/23/2014 10:00 AM EDT Office Visit Dermatology at [address] [address] Clay Ramírez MD [address] [facility], [place] [address] Dermatofibroma; Nevus; Solar lentigo Discharge Disposition: Home [...] [facility] Hospital Encounter Non-[place]vasive [place] [address] Arrived documented as of this encounter Visit Diagnoses Diagnosis Dermatofibroma Benign neoplasm of skin, site unspecified Nevus Benign neoplasm of skin, site unspecified Solar lentigo Other dyschromia documented in this encounter Care Teams Door Clamp Operator Relationship Specialty Start Date End Date Lolly Oliveira MD [address] [place] [address] PCP - General 07/17/13 documented as of this encounter
--- OUTSIDE RECORDS SUMMARY | 2023-12-31 11:11 | XMS_ITS | Encounter Summary ---
[place] [address] Care Team Providers Care Ticket Worker Name Role Phone Lolly Oliveira MD Primary Care Provider [phone] Encounter Details Date Type Department Care Team [...] AM EST Hospital Encounter Non-[place] [address] Arrived documented as of this encounter Visit Diagnoses Not on filedocumented in this encounter Care Teams Ticket Worker Relationship Specialty Start Date End Date Lolly Oliveira MD [address] [place] [address] PCP - General 07/17/13 documented as of this encounter
--- OUTSIDE RECORDS SUMMARY | 2023-12-31 11:11 | XMS_ITS | Encounter Summary ---
Author Organization [facility] [place] [address] Care Team Providers Care Manufacturers Service Representative Name Role Phone Lolly Oliveira MD Primary Care Provider [phone] Reason for Visit * Auth/Cert (Routine) Specialty Diagnoses / Procedures Referred By Contac t Referred To Contact Diagnoses Left bundle-branch block, unspecified Other cardiomyopathies Left bundle branch block [I44.7]Nonischemic cardiomyopathy [I42.8] Procedures PRG CATH PLMT LEFT HEART CATH & ARTS W/INJ & ANGIO IMG S&I ELECTROPHYSIOLOGY PROCEDURE Lalit Mcmahon MD [facility] [place] [address] [facility] Referral ID Status Reason Start Date Expiration Date Visits Re quested Visits Authorized [id number] 1 1 Encounter Details Date Type Department Care Team (Late st Contact Info) Description 07/23/2022 1:00 PM EDT - 07/23/2022 5:30 PM EDT Surgery [place] [address] Lalit Mcmahon MD [facility] [place] [address] ELECTROPHYSIOLOGY PROCEDURE Social History Tobacco Use Types [...] Luna Mott Patient Age: 71 y.o. Language: Uruguayan Race: White Ethnicity: Not nor Admit date: 07/23/2022 Discharge date and time: 07/24/22 Attending Physician: Lalit Mcmahon MD Discharge Physician: Lalit Mcmahon MD Follow-up Recommendations for Providers: - s/p MEMBER OF CONGRESS-D implant - post implant QRS 130 ms [...] Nevus ??? Solar lentigo Operations/Major Procedures: 07/23/22: [facility] MEMBER OF CONGRESS-D implant History of Presentation: 71 y.o. female with a history of HFrEF, LBBB, QRS >150, NYHA II who is POD#1 of MEMBER OF CONGRESS-D implant ([employer]). Hospital Course: Elective admission for MEMBER OF CONGRESS-D implant Admitted post-implant for pain management, telemetry [...] (heart failure with reduced ejection fraction) [I50.20] MEMBER OF CONGRESS-D implant Admission Condition: good Indication for Admission: [...] g Refills: 3 fluticasone propionate 50 mcg/actuation [place], Suspension Commonly known as: Flonase 1 spray [...] incision. Make sure to use a cloth piecer (such as a towel) in between the [...] F. The office scheduling phone number is [phone]. ARM MOVEMENT RESTRICTIONS POST-IMPLANT - Do not [...] please call the Cardiac ElectrophysiologyTriage Nurse at [phone], option 3. General Instructions None Discharge References/Attachments [...] incision. Make sure to use a cloth piecer (such as a towel) in between the [...] F. The office scheduling phone number is [phone]. ARM MOVEMENT RESTRICTIONS POST-IMPLANT - Do not [...] please call the Cardiac ElectrophysiologyTriage Nurse at [phone], option 3. documented in this encounter Medications [...] with spacer fluticasone propionate (Flonase) 50 mcg/actuation [place], Suspension 1 spray by Each Nare route [...] Cardiac Electrophysiology Post-Implant Device Interrogation Luna Mott [id number] 07/24/2022 History: Luna Mott is a 71 y.o. female with a history of HFrEF, LBBB, QRS >150, NYHA II who is POD#1 of MEMBER OF CONGRESS-D implant ([employer]). Overall feels well this morning. Ready [...] WOB Neuro- A&Ox3 Device Interrogation: Data ?? Game Programer Model # Serial # Generator [employer] [id number] Atrial Lead [employer] [id number] RV Lead [employer] 0672 [id number] LV Lead [employer] [id number] ?? Diagnostics Pacing Mode: DDD 60-130 Underlying Rhythm: [place] Atrial Episodes: None Ventricular Episodes: None FINAL PROGRAMMING: Pacing: Mode Lower rate (ppm) Upper rate (ppm) ?? DDD 60 130 VF: Rate (bpm) #Antitachycardia pacing First shock energy (J) ?? 200 Quick convert 41 VT: 170 Monitor only Monitor only ? Battery and Leads Impedances (ohms) Sensing (mV) Thresholds HV RA RV LV RA RV LV RA RV LV 73 [phone] (LVa) 7.7 13.1 >25 0.4V @ 0.4 ms 0.4V @ 0.4 ms 0.5 V @ 1.0 ms POD#1 CXR: All leads in nominal positioning Impression: 71 y.o. female who is s/p MEMBER OF CONGRESS-D implant for LBBB, NYHA II, HFrEF. - [...] [facility]) Fadi Nunez MD 07/24/2022 Pager: [phone] I met with the patient today and [...] agreement. ? Dr. Lalit Mcmahon, electrophysiology attending ([id number]) * Zaria Wright RN - 07/23/2022 8:28 [...] HF, QRS > 150 ms presents for MEMBER OF CONGRESS-D placement. ROS: Denies recent fevers or chills [...] 0.9) flush 5 mL 5 mL Intravenous R30OChyssLalit ramos MD ??? sodium chloride 0.9 % [...] HF, QRS > 150 ms presents for MEMBER OF CONGRESS-D placement. Backup would be LBBAP lead. Antibiotics: cefazolin Rationales for, intended benefits and potential risk of planned procedures reviewed. The patient indicated understanding and agreement with the plan. Informed consent signed. Procedure checklist completed. Fadi Nunez MD Cardiac Electrophysiology Fellow [facility] Pager [phone] 07/23/2022 I met with the patient today [...] agreement. ? Dr. Lalit Mcmahon, electrophysiology attending ([id number]) documented in this encounter Miscellaneous Notes * Brief Op Note - Lalit Mcmahon MD - 07/23/2022 4:04 PM EDT Brief Operative Note Patient Name: Luna Mott : [id number] MR#: [id number] Case Date: 07/23/2022 Surgeon: Surgeon(s) and Role: [...] AM EST Hospital Encounter Non-In[place] [address] Arrived Scheduled Orders Name Type Priority Associated Diagnoses Orde r Schedule EKG 12 Lead ECG Routine Cardiac resynchronization therapy defibrillator (MEMBER OF CONGRESS-D) in place One Time for 1 Occurrences [...] (Bezet) 522 ms MUSE SYSTEM Calculated R [place] 78 degrees MUSE SYSTEM Calculated T [place] -71 degrees MUSE SYSTEM INTERPRETATION AV dual-paced [...] have questions please contact the health healthcare architect that requested your imaging first. ? Narrative [...] who have questions please contactthe health healthcare architect that requested your imaging first. Lalit Mcmahon MD IMG DX ORDERABLES * ELECTROPHYSIOLOGY PROCEDURE (07/23/2022 1:11 PM EDT) Anatomical Region Laterality Modality Other Narrative 07/23/2022 4:24 PM EDT Table formatting from the original result was not included. BIVENTRICULAR ICD IMPLANTATION Communications Department Chair: Lalit Mcmahon MD Fellow: Fadi Nunez MD [...] lateral branch of the CS in the AUSTRALIAN view. This branch was cannulated with a [...] the entire procedure. LEAD AND GENERATOR DATA: Game Programer Model # Serial # Generator [employer] [id number] Atrial Lead [employer] [id number] RV Lead [employer] 0672 [id number] LV Lead [employer] [id number] PACE/SENSE DATA: Sensed wave (mV) Threshold (V) [...] (cGycm2) 300 CONCLUSIONS: Successful implantation of a [employer] biventricular ICD for primary prevention and treatment of symptoms related to congestive heart failure. Follow up in EP clinic in 1-2 months. Procedures performed: new ICD system ( cpt 88496-X8); implant LV lead at time of ICD insertion (cpt 14615) I have read, edited and approve of this report: Lalit Mcmahon MD [facility] Cardiac Electrophysiology 07/23/2022 4:22 PM Procedure Note Lalit Mcmahon MD - 07/23/2022 BIVENTRICULAR ICD IMPLANTATION Communications Department Chair: Lalit Mcmahon MD Fellow: Fadi Nunez MD [...] appropriate lateralbranch of the CS in the AUSTR[place] view. This branch was cannulated with a [...] in the entireprocedure. LEAD AND GENERATOR DATA: Game Programer Model # Serial # Generator [employer] [id number] Atrial Lead [employer] [id number] [id number] RV Lead [employer] 0672 [id number] LV Lead [employer] 4674 [id number] PACE/SENSE DATA: Sensed wave (mV) Threshold (V) [...] (cGycm2) 300 CONCLUSIONS: Successful implantation of a [employer] biventricular ICD forprimary prevention and treatment of symptoms related to congestive heartfailure. Follow up in EP clinic in 1-2 months. Procedures performed: new ICD system ( cpt 02471-L4); implant LV lead attime of ICD insertion (cpt 11252) I have read, edited and approve of this report: Lalit Mcmahon MD S Cardiac Electrophysiology 07/23/2022 4:22 PM Lalit Mcmahon MD EP PROCEDURE ORDERAB LES * POCT Glucose (07/23/2022 12:54 PM EDT) [facility] Signature Glucose, POC 83 65 - 199 mg/dL [facility] Comment: Supplemental ranges: <140 mg/dL before meals <180 mg/dL all other times of the day Blood 07/23/2022 12:5 4 PM EDT 07/23/2022 12:54 PM EDT Lalit Mcmahon MD POINT OF CARE TEST O RDERABLES Performing Organization Address City/[facility]/ZIP Co de Phone Number [facility] [place] [address] * EKG 12 Lead (07/23/2022 12:33 PM EDT) Ventricular rate 72 BPM MUSE SYSTEM Atrial Rate 72 BPM MUSE SYSTEM P-R Interval 158 ms MUSE SYSTEM QRS Duration 176 ms MUSE SYSTEM Q-T Interval 458 ms MUSE SYSTEM QTC Calculated (Bezet) 501 ms MUSE SYSTEM Calculated P [place] 34 degrees MUSE SYSTEM Calculated R [place] 12 degrees MUSE SYSTEM Calculated T [place] -173 degrees MUSE SYSTEM INTERPRETATION Normal sinus rhythm Left bundle branch block Abnormal ECG No previous ECGs available Confirmed by MD Salome, Lalit ([id number]) on 07/23/2022 1:19:03 PM MUSE SYSTEM 07/23/2022 12:3 3 PM EDT 07/23/2022 1:19 PM EDT Lalit Mcmahon MD ECG ORDERABLES Performing Organization Address [facility]/ZIP Co de Phone Number MUSE SYSTEM * Differential, Automated (07/23/2022 11:55 AM EDT) Neutrophil % 62.6 % [facility] Neutrophil Absolute 4.14 1.70 - 6.10 x10(3)/[facility] Lymph % 27.0 % [facility] Lymphocytes Abs 1.8 0.9 - 3.2 x10(3)/[facility] Monocyte % 7.3 % [facility] Monocyte Abs 0.5 0.3 - 0.9 x10(3)/[facility] Eos % 2.3 % [facility] Eosinophils Abs 0.2 0.0 - 0.4 x10(3)/[facility] Basophil % 0.6 % [facility] Baso Absolute 0.0 0.0 - 0.1 x10(3)/[facility] Immature Gran % 0.20 % [facility] Comment: Immature granulocytes(IG's)percentage and absolute count will include metamyelocytes, myelocytes, and promyelocytes. Blood smears from CBCs yielding IG's will be scanned manually for concordance. If this scan disagrees with the automated IG or if promyelocytes are noted, a manual differential will be performed. Immature Gran Absolute 0.01 0.00 - 0.04 x10(3)/[facility] Blood 07/23/2022 11:5 5 AM EDT 07/23/2022 12:07 PM EDT Narrative Resulting Agency Comment Spec In Lab Lalit Mcmahon MD HEMATOLOGY ORDERABLE S [facility] [place] [address] * Hemogram (07/23/2022 11:55 AM EDT) White Blood Cell 6.6 4.0 - 9.5 x10(3)/[facility] Red Blood Cell 4.50 4.00 - 5.21 x10(6)/[facility] Hemoglobin 13.7 11.7 - 15.5 g/dL [...] HOSPITAL LABORATORY Platelet 193 145 - 357 x10(3)/[facility] RDW Standard Deviation 45.5 37.0 - 46.0 fL [facility] RDW coefficient of variation 13.2 11.5 - 14.1 % [facility] Mean Platelet Volume 9.5 7.6 - 12.9 fL [facility] NRBC% auto 0.0 % [facility] NRBC Absolute 0.000 0.000 - 0.000 x10(3)/[facility] Blood 07/23/2022 11:5 5 AM EDT 07/23/2022 12:07 PM EDT Narrative Resulting Agency Comment Spec In Lab Lalit Mcmahon MD HEMATOLOGY ORDERABLE S [facility] [place] [address] * (ABNORMAL) BMP w/fasting Glucose (07/23/2022 11:55 [...] Nitrogen 23(H) 8 - 18 mg/dL [facility] Creatinine 1.07 0.70 - 1.20 mg/dL [facility] Sodium 141 135 - [...] Chloride 106 98 - 107 mmol/L [facility] Carbon Dioxide 26 22 - 31 mmol/L [facility] Anion Gap 9 5 - 15 mmol/L [facility] Calcium 9.7 8.5 - 10.5 mg/dL [facility] Est Glomerular Filtration Rate 55(L) >=60 mL/min/1. 73 m?? [facility] Comment: This patient's estimated [...] Mcmahon MD CHEMISTRY ORDERABLES Performing Organization Address [facility] Co de Phone Number [facility] [place] [address] * Prothrombin Time (07/23/2022 11:55 AM EDT) [...] MD HEMATOLOGY ORDERABLE S Performing Organization Address City/[facility] Co de Phone Number [facility] [place] [address] documented in this encounter Visit Diagnoses Diagnosis HFrEF (heart failure with reduced ejection fraction)- Primary Left bundle branch block Other left bundle branch block Nonischemic cardiomyopathy Other primary cardiomyopathies Cardiac resynchronization therapy defibrillator (MEMBER OF CONGRESS-D) in place Left bundle branch block Other [...] 20 mg, Oral, DAILY, First dose on Mrya 07/23/22 at 1800, Until Discontinued, Routine Given [...] Routine documented in this encounter Care Teams Manufacturers Service Representative Relationship Specialty Start Date End Date Lolly Oliveira MD [address] [place] [address] PCP - General 07/17/13 documented as of this encounter
--- OUTSIDE RECORDS SUMMARY | 2023-12-31 11:11 | XMS_ITS | Encounter Summary ---
Author Organization [place] [address] Care Team Providers Care Paper Conservator Name Role Phone Lolly Oliveira MD Primary Care Provider [phone] Encounter Details Date Type Department Care Team (Late st Contact Info) Description 04/01/2021 3:30 PM EST Office Visit Dermatology at [address] [phone] Clay Ramírez MD [address] [place] [address] Psoriasis, guttate Social History Tobacco Use Types [...] AM EST Hospital Encounter Non-[place] [address] Arrived documented as of this encounter Visit Diagnoses Diagnosis Psoriasis, guttate Other psoriasis documented in this encounter Care Teams Paper Conservator Relationship Specialty Start Date End Date Lolly Oliveira MD [address] [place] [address] PCP - General 07/17/13 documented as of this encounter
--- OUTSIDE RECORDS SUMMARY | 2023-12-31 11:11 | XMS_ITS | Encounter Summary ---
Author Organization [facility] [place] [address] Care Team Providers Care Drill Instructor Name Role Phone Lolly Oliveira MD Primary Care Provider [phone] Reason for Visit * Diagnostic Test (Routine) - Closed Specialty Diagnoses / Procedures Referred By Contac t Referred To Contact Radiology Diagnoses Left bundle branch block Nonischemic cardiomyopathy Procedures MRI Cardiac Morphology Function With Flow Velocity Quantification wwo Contrast MRI Cardiac Morphology Function wwo Contrast Lalit Mcmahon MD [facility] [address] [facility] [place] [address] Referral ID Status Reason Start Date Expiration Date V isits Requested Visits Authorized [id number] Closed Specialty Service Requested 05/06/2022 11/07/2023 2 1 Encounter Details Date Type Department Care Team (Latest Contact Info) Description 07/14/2022 9:09 AM EDT - 07/14/2022 11:59 PM EDT Hospital [place] [address] Lalit Mcmahon MD [facility] [place] [address] Discharge Disposition: Home Social History Tobacco Use [...] with spacer fluticasone propionate (Flonase) 50 mcg/actuation [place], Suspension 1 spray by Each Nare route [...] AM EST Hospital Encounter Non-Invasive [place] [address] Arrived documented as of this [...] mLs documented in this encounter Care Teams Drill Instructor Relationship Specialty Start Date End Date Lolly Oliveira MD [address] [place] [address] PCP - General 07/17/13 documented as of this encounter
--- OUTSIDE RECORDS SUMMARY | 2023-12-31 11:11 | XMS_ITS | Encounter Summary ---
[place] [address] Care Team Providers Care Regional Office Coordinator Name Role Phone Lolly Oliveira MD Primary Care Provider [phone] Encounter Details Date Type Department Care Team [...] AM EST Hospital Encounter Non-[place] [address] Arrived documented as of this encounter Visit Diagnoses Not on filedocumented in this encounter Care Teams Regional Office Coordinator Relationship Specialty Start Date End Date Lolly Oliveira MD [address] [place] [address] PCP - General 07/17/13 documented as of this encounter
--- OUTSIDE RECORDS SUMMARY | 2023-12-31 11:11 | XMS_ITS | Encounter Summary ---
Author Organization [facility] Address [facility] [place] [address] Care Team Providers Care Grommet Worker Name Role Phone Lolly Oliveira MD Primary Care Provider [phone] Encounter Details Date Type Department Care Team (Late st Contact Info) Description 07/16/2022 Telephone Cardiology at [address] [phone] Lalit Mcmahon MD [facility] [place] [address] Social History Tobacco Use Types Packs/Day Years [...] her nonischemic cardiomyopathy. She is scheduled for INCOME TAX ADJUSTER-D implantation next week and looks forward to the procedure. We will see each other next week. Lalit Mcmahon MD [facility] Cardiac Electrophysiology 07/16/2022 8:52 AM documented in this encounter Plan of Treatment Upcoming Encounters Date Type Department Care Team (Late st Contact Info) Description 01/16/2024 10:00 AM EST Hospital Encounter Non-Invasive [place] [address] Arrived documented as of this encounter Visit Diagnoses Not on filedocumented in this encounter Care Teams Grommet Worker Relationship Specialty Start Date End Date Lolly Oliveira MD [address] [place] [address] PCP - General 07/17/13 documented as of this encounter
--- OUTSIDE RECORDS SUMMARY | 2023-12-31 11:11 | XMS_ITS | Encounter Summary ---
Author Organization [facility] [place] [address] Care Team Providers Care Tire Recapper Name Role Phone Unavailable Primary Care Provider Unavailabl e Encounter Details Date Type Department Care Team (Late st Contact Info) Description 07/14/2013 Orders [place] [phone] Eleno Christian MD [facility] [place] [address] Social History Tobacco Use Types Packs/Day Years [...] Hospital Encounter Non-[place] [address] Arrived documented as of this encounter Visit Diagnoses Not on filedocumented in this encounter
--- OUTSIDE RECORDS SUMMARY | 2023-12-31 11:11 | XMS_ITS | Encounter Summary ---
Author Organization [facility] [place] [address] Care Team Providers Care Waistline Joiner Overlock Name Role Phone Lolly Oliveira MD Primary Care Provider [phone] Reason for Visit * Reason Onset Date Comments Pre Procedure Call 07/01/2022 Encounter Details Date Type Department Care Team (Late st Contact Info) Description 07/01/2022 Telephone Cardiology at [address] [phone] Rosenda Sutton RN Pre Procedure Call Social History Tobacco Use Types Packs/Day Years Used Date Smoking Tobacco: Never Sex and Gender Information Value Date Recorded Sex Assigned at Not on file Gender Identity Not on file Sexual Orientation Not on file documented as of this encounter Miscellaneous Notes * Telephone Encounter - Rosenda Sutton RN - 07/01/2022 9:30 AM EDTSummary: Pre Procedure Call: CHISEL MORTISER OPERATOR implant EP CARDIOVASCULAR RN COORDINATION CHECKLIST Patient Name: Luna Mott Patient Performing Jewel Blocker And Sawyer: Lalit Mcmahon Referring Provider: Lolly Oliveira Date of Procedure: 07/23/22 Arrival Time/ Case Time: 12:00 pm / 1:00 pm Check In Location: Mail Clerk Desk 4W Date Patient was Called: 07/01/22 Procedure: CHISEL MORTISER OPERATOR Company: [employer] Type: CHISEL MORTISER OPERATOR-D Laterality: LEFT Orders: Yes Lab Orders: [...] overnight , understands that they will need dedicated driver on day of discharge Notified pt that Goff catheter may be placed on day of procedure depending on type & duration of case. documented in this encounter Plan of Treatment Upcoming Encounters Date Type Department Care Team (Late st Contact Info) Description 01/16/2024 10:00 AM [facility] Hospital Encounter Non-Invasive [place] [address] Arrived documented as of this encounter Visit Diagnoses Not on filedocumented in this encounter Care Teams Waistline Joiner Overlock Relationship Specialty Start Date End Date Lolly Oliveira MD [address] [place] [address] PCP - General 07/17/13 documented as of this encounter
--- OUTSIDE RECORDS SUMMARY | 2023-12-31 11:11 | XMS_ITS | Encounter Summary ---
Author Organization [facility] [place] [address] Care Team Providers Care Channel Man Name Role Phone Lloly Oliveira MD Primary Care Provider [phone] Encounter Details Date Type Department Care Team (Late st Contact Info) Description 06/29/2011 [place] [phone] Eleno Christian MD [facility] DIAG[place]STIC [place] [address] Social History Tobacco Use Types Packs/Day Years [...] AM EST Hospital Encounter [place] [address] Arrived documented as of this encounter Procedures [...] on filedocumented in this encounter Care Teams Channel Man Relationship Specialty Start Date End Date Lolly Oliveira MD [address] [place] [address] PCP - General 07/17/13 documented as of this encounter
--- OUTSIDE RECORDS SUMMARY | 2023-12-31 11:11 | XMS_ITS | Encounter Summary ---
Author Organization [facility] Address [place] [address] Care Team Providers Care Software Systems Engineer Name Role Phone Lolly Oliveira MD Primary Care Provider [phone] Reason for Visit * Auth/Cert (Routine) Specialty Diagnoses / Procedures Referred By Contac t Referred To Contact Diagnoses Left bundle-branch block, unspecified Other cardiomyopathies Left bundle branch block [I44.7]Nonischemic cardiomyopathy [I42.8] Procedures PRG CATH PLMT LEFT HEART CATH & ARTS W/INJ & ANGIO IMG S&I ELECTROPHYSIOLOGY PROCEDURE Lalit Mcmahon MD [facility] [place] [address] [facility] Referral ID Status Reason Start Date Expiration Date Visits Re quested Visits Authorized [id number] 1 1 Encounter Details Date Type Department Care Team (Late st Contact Info) Description 07/23/2022 1:08 PM EDT Anesthesia Event [place] [address] Monae Gonzalez MD [facility] [place] [address] Maria Elena Snyder CRNA [facility] [place] [address] Anesthesia Record Procedure Summary Procedure Name Responsible [...] 1307; median cubital vein (antecubital fossa), right; yyiw-bru-eovxjx catheter system; Anatomical Landmarks; 20 gauge; 07/24/22; [...] 1343; metacarpal vein (top of hand), left; ejzp-trt-slpttn catheter system; Anatomical Landmarks; US Not Used; [...] Date: 07/23/22 Room / Location: [facility] / [facility] EP LABS Anesthesia Start: 1308 Anesthesia Stop: 1633 Procedure: ELECTROPHYSIOLOGY PROCEDURE (Left) Diagnosis: Left bundle branch block Nonischemic cardiomyopathy (Left bundle branch block [I44.7]Nonischemic cardiomyopathy [I42.8]) Providers: Lalit Mcmahon MD Responsible Provider: Monae Gonzalez MD Anesthesia Type: general ASA Status: 4 All Anesthesia Providers: Anesthesiologist: Monae Gonzalez MD; Dominique Sen MD [employer] SUPERINTENDENT: Maria Elena Snyder CRNA Vitals Value Taken Time BP 131/46 07/23/22 1700 Temp 36.7 ??C (98.1 ??F) 07/23/22 1627 Pulse 67 07/23/22 1703 Resp 14 07/23/22 1703 SpO2 98 % 07/23/22 1703 Pain Level Vitals shown include unvalidated device data. Patient Location: PACU/[facility] Level of Consciousness: Conscious but Sleepy [...] and Nonischemic CM (EF 15-20%)who presents for INNOVATION MANAGER-D. No prior anesthetic records. Pt states [...] daughter/son and patient who. Plan discussed with [employer] SUPERINTENDENT. Anesthesia Screening documented in this encounter Plan of Treatment Upcoming Encounters Date Type Department Care Team (Late st Contact Info) Description 01/16/2024 10:00 AM [facility] Hospital Encounter [place] [address] Arrived documented as of this [...] 2 g, Intravenous, ONCE, 1 dose, On Mrya 07/23/22 at 1245, Administer over 30 Minutes, [...] mg documented in this encounter Care Teams Software Systems Engineer Relationship Specialty Start Date End Date Lolly Oliveira MD [address] [place] [address] PCP - General 07/17/13 documented as of this encounter
--- OUTSIDE RECORDS SUMMARY | 2023-12-31 11:11 | XMS_ITS | Encounter Summary ---
Author Organization [facility] [place] [address] Care Team Providers Care Diet Attendant Name Role Phone Lolly Oliveira MD Primary Care Provider [phone] Encounter Details Date Type Department Care Team (Late st Contact Info) Description 07/26/2013 [place] [phone] Eleno Christian MD [facility] [place] [address] Social History Tobacco Use Types Packs/Day Years [...] AM EST Hospital Encounter Non-Invasive [place] [address] Arrived documented as of this encounter Visit Diagnoses Not on filedocumented in this encounter Care Teams Diet Attendant Relationship Specialty Start Date End Date Lolly Oliveira MD [address] [place] [address] PCP - General 07/17/13 documented as of this encounter
--- OUTSIDE RECORDS SUMMARY | 2023-12-31 11:11 | XMS_ITS | Encounter Summary ---
Author Organization [facility] [place] [address] Care Team Providers Care Digital Performance Analyst Name Role Phone Lolly Oliveira MD Primary Care Provider [phone] Encounter Details Date Type Department Care Team (Latest Contact Info) Description 07/26/2013 9:45 AM EDT - 07/26/2013 11:59 PM EDT Hospital En[place] [address] Mammographic microcalcification Social History Tobacco Use Types [...] Hospital Encounter Non-Invasive [place] [address] Arrived documented as of this encounter Procedures [...] microcalcification documented in this encounter Care Teams Digital Performance Analyst Relationship Specialty Start Date End Date Lolly Oliveira MD [address] [place] [address] PCP - General 07/17/13 documented as of this encounter
--- OUTSIDE RECORDS SUMMARY | 2023-12-31 11:11 | XMS_ITS | Encounter Summary ---
Author Organization [facility] [place] [address] Care Team Providers Care Wet Crown Blocking Operator Name Role Phone Lolly Oliveira MD Primary Care Provider [phone] Encounter Details Date Type Department Care Team (Latest Contact Info) Description 07/17/2013 8:40 AM EDT - 07/17/2013 11:59 PM EDT Hospital Encounter XRay at [address] [place] [phone] CLIN[address], [facility] Discharge Disposition: Home Social [...] AM EST Hospital Encounter [place] [address] Arrived documented as of this encounter Visit Diagnoses Not on filedocumented in this encounter Care Teams Wet Crown Blocking Operator Relationship Specialty Start Date End Date Lolly Oliveira MD [address] [place] [address] PCP - General 07/17/13 documented as of this encounter
--- OUTSIDE RECORDS SUMMARY | 2023-12-31 11:11 | XMS_ITS | Encounter Summary ---
Author Organization [facility] [place] [address] Care Team Providers Care Academic Counselor Name Role Phone Lolly Oliveira MD Primary Care Provider [phone] Reason for Referral * Consultation (Routine) - Closed Specialty Diagnoses / Procedures Referred By Contact Referred To Contact Electrophysiology / Cardiology Diagnoses Left bundle branch block Cardiomyopathy, unspecified type AT MINIMUM PT NEEDS CONSIDERATION FOR DEFIBRILLATOR, ALSO CANDIDATE FOR RESYNCHRONIZATION THERAPY HER QRS IS >0.16 Lolly Oliveira MD [address] [place] [address] [facility] [address] [place] [phone] Referral ID Status Reason Start Date Expiration Date V isits Requested Visits Authorized [id number] Closed Consult, Test & Treat PCP Updated and/or Approved 04/30/2022 04/30/2023 6 6 Encounter Details Date Type Department Care Team (Latest Contact Info) Description 04/30/2022 Transcribe Orders eDH Incoming Referrals [phone] Lolly Oliveira MD [address] [place], [place] [id number] Left bundle branch block; Cardiomyopathy, unspecified type [...] Hospital Encounter Non-[place] [address] Arrived Scheduled Referrals Name Type Priority Associated Diagnoses Orde r Schedule Referral to Cardiology Outpatient Referral Routine Left bundle branch block Cardiomyopathy, Unspecified Type Ordered: 04/30/2022 documented as of this encounter Visit Diagnoses Diagnosis Left bundle branch block Other left bundle branch block Cardiomyopathy, unspecified type documented in this encounter Care Teams Academic Counselor Relationship Specialty Start Date End Date Lolly Oliveira MD [address] [place] [address] PCP - General 07/17/13 documented as of this encounter
--- OUTSIDE RECORDS SUMMARY | 2023-12-31 11:11 | XMS_ITS | Encounter Summary ---
Author Organization [place] [address] Care Team Providers Care Prosthetics Assistant Name Role Phone Lolly Oliveira MD Primary Care Provider [phone] Reason for Visit * Reason Comments Follow-up Encounter Details Date Type Department Care Team (Late st Contact Info) Description 05/21/2022 8:00 AM EDT Office Visit Dermatology at [address] [phone] Clay Ramírez MD [address] [facility] [place] [address] Psoriasis, guttate Social History Tobacco Use Types [...] [facility] Hospital Encounter Non-Invasive [place] [address] Arrived documented as of this encounter Visit Diagnoses Diagnosis Psoriasis, guttate Other psoriasis documented in this encounter Care Teams Prosthetics Assistant Relationship Specialty Start Date End Date Lolly Oliveira MD [address] [place] [address] PCP - General 07/17/13 documented as of this encounter
--- OUTSIDE RECORDS SUMMARY | 2023-12-31 11:11 | XMS_ITS | Encounter Summary ---
[place] [address] Care Team Providers Care Line Supervisor Name Role Phone Lolly Oliveira MD Primary Care Provider [phone] Encounter Details Date Type Department Care Team (Late st Contact Info) Description 07/17/2013 Orders [place] [address] Lolly Oliveira MD [address] [place], [place] [id number] Social History Tobacco Use Types Packs/Day Years [...] Non-Invasive [place] [address] Arrived documented as of this encounter Procedures [...] OUTSIDE MAMMOGRAMS (PERFORMED ON 07/06/13 AND 07/14/13) [facility] DATED 07/17/13: DIAGNOSTIC IMAGING SUMMARY: RIGHT [...] filedocumented in this encounter Care Teams Line Supervisor Relationship Specialty Start Date End Date Lolly Oliveira MD [address] [place] [address] PCP - General 07/17/13 documented as of this encounter
--- OUTSIDE RECORDS SUMMARY | 2023-12-31 11:11 | XMS_ITS | Encounter Summary ---
Author Organization [facility] [place] [address] Care Team Providers Care Citrix Architect Name Role Phone Lolly Oliveira MD Primary Care Provider Reason for Referral * Diagnostic Test (Routine) - Closed Specialty Diagnoses / Procedures Referred By Contac t Referred To Contact Radiology Diagnoses Left bundle branch block Nonischemic cardiomyopathy Procedures MRI Cardiac Morphology Function With Flow Velocity Quantification [facility] Contrast MRI Cardiac Morphology Function wwo Contrast Lalit Mcmahon MD [facility] [place] [address] [place] [address] Referral ID Status Reason Start Date Expiration Date V isits Requested Visits Authorized [id number] Closed Specialty Service Requested 05/06/2022 11/07/2023 2 1 Reason for Visit * Diagnostic Test (Routine) - Closed Specialty Diagnoses / Procedures Referred By Contac t Referred To Contact Radiology Diagnoses Left bundle branch block Nonischemic cardiomyopathy Procedures MRI Cardiac Morphology Function With Flow Velocity Quantification o Contrast MRI Cardiac Morphology Function wwo Contrast Lalit Mcmahon MD [facility] [place] [address] [place] [address] Referral ID Status Reason Start Date Expiration Date V isits Requested Visits Authorized [id number] Closed Specialty Service Requested 05/06/2022 11/07/2023 2 1 Encounter Details Date Type Department Care Team (Latest Contact Info) Description 07/14/2022 9:08 AM EDT Hospital Encounter MRI at [facility] [place] [address] Lalit Mcmahon MD [facility] [address] [address] Left bundle branch block; Nonischemic cardiomyopathy Discharge [...] with spacer fluticasone propionate (Flonase) 50 mcg/actuation [place], Suspension 1 spray by Each Nare route [...] : 1950 [address] [facility] [address] Female [phone] (home) No relevant phone numbers on file. Lolly Oliveira MD None Allergies Allergen Reactions ??? Sulfa (Sulfonamide Antibiotics) Date/Time of call: July 07, 2022/11:03 AM/ PREVIOUS MRI SCAN? HEIGHT: WEIGHT: SCHEDULED SCAN: MRI CARDIAC MORPHOLOGY FUNCTION WITH FLOW VELOCITY QUANTIFICATION WWO CONTRAST [[id number]] Order Questions Answers Where will study be performed? [facility] Radiology [120] SUBJECTIVE: Very Claustrophobic CAN [...] [facility] Hospital Encounter [place] [address] Arrived documented as of this encounter Procedures [...] who have questions please contact the health nurse wound care that requested your imaging first. ? [...] patients who have questions please contactthe health nurse wound care that requested your imaging first. Lalit [...] mg documented in this encounter Care Teams Citrix Architect Relationship Specialty Start Date End Date Lolly Oliveira MD [address] [place] [address] PCP - General 07/17/13 documented as of this encounter
--- OUTSIDE RECORDS SUMMARY | 2023-12-31 11:11 | XMS_ITS | Encounter Summary ---
[place] [address] Care Team Providers Care Workday Consultant Name Role Phone Lolly Oliveira MD Primary Care Provider [phone] Encounter Details Date Type Department Care Team [...] AM EST Hospital Encounter Non-[place] [address] Arrived documented as of this encounter Visit Diagnoses Not on filedocumented in this encounter Care Teams Workday Consultant Relationship Specialty Start Date End Date Lolly Oliveira MD [address] [place] [address] PCP - General 07/17/13 documented as of this encounter
--- OUTSIDE RECORDS SUMMARY | 2023-12-31 11:11 | XMS_ITS | Encounter Summary ---
Author Organization [place] [address] Care Team Providers Care Automatic Splicing Machine Operator Name Role Phone Lolly Oliveira MD Primary Care Provider [phone] Reason for Visit * Reason Comments Follow-up Encounter Details Date Type Department Care Team (Late st Contact Info) Description 07/02/2022 8:00 AM EDT Office Visit Dermatology at [address] [phone] Clay Ramírez MD [address] [facility] [place] [address] Psoriasis, guttate Social History Tobacco Use Types [...] [facility] Hospital Encounter Non[place] [address] Arrived documented as of this encounter Visit Diagnoses Diagnosis Psoriasis, guttate Other psoriasis documented in this encounter Care Teams Automatic Splicing Machine Operator Relationship Specialty Start Date End Date Lolyl Oliveira MD [address] [place] [address] PCP - General 07/17/13 documented as of this encounter
--- OUTSIDE RECORDS SUMMARY | 2023-12-31 11:11 | XMS_ITS | Encounter Summary ---
[place] [address] Care Team Providers Care Injection Machine Operator Name Role Phone Lolly Oliveira MD Primary Care Provider Encounter Details Date Type Department Care Team (Late st Contact Info) Description 04/09/2022 Refill Dermatology at [address] [address] Nora Meredith, MATCHER OFFBEARER Social History Tobacco Use Types Packs/Day Years [...] [facility] Hospital Encounter Non[place] [address] Arrived documented as of this encounter Visit Diagnoses Not on filedocumented in this encounter Care Teams Injection Machine Operator Relationship Specialty Start Date End Date Lolly Oliveira MD [address] [place] [address] PCP - General 07/17/13 documented as of this encounter
--- OUTSIDE RECORDS SUMMARY | 2023-12-31 11:11 | XMS_ITS | Encounter Summary ---
Author Organization [facility] [address] Care Team Providers Care Salesperson Driver Name Role Phone Lolly Oliveira MD Primary Care Provider [phone] Encounter Details Date Type Department Care Team (Late Contact Info) Description 01/14/2022 Telephone Dermatology at [address] [address] Nora Meredith LPN Social History [...] AM EST Hospital Encounter Non-[place] [address] Arrived documented as of this encounter Visit Diagnoses Not on filedocumented in this encounter Care Teams Salesperson Driver Relationship Specialty Start Date End Date Lolly Oliveira MD [address] [place] [address] PCP - General 07/17/13 documented as of this encounter
--- OUTSIDE RECORDS SUMMARY | 2023-12-31 11:11 | XMS_ITS | Encounter Summary ---
Author Organization [facility] [place] [address] Care Team Providers Care Digital Sales Manager Name Role Phone Lolly Oliveira MD Primary Care Provider [phone] Encounter Details Date Type Department Care Team (Latest Contact Info) Description 07/18/2013 [place] [phone] Alia Fraire MD [facility] [address] Mammographic microcalcification (Primary Dx) Social History Tobacco [...] AM EST Hospital Encounter Non-In[place] [address] Arrived documented as of this encounter Results [...] are present on specimen digital X-ray. A [employer] Eviva-Stereo 13 Cylinder marker clip was placed. [...] calcifications are present on specimendigital X-ray. A [employer] Eviva-Stereo 13 Cylinder marker clip was placed. [...] does not layer and, therefore, are not graphic art sales representative of milk of calcium. Again, [...] does not layer and, therefore, are not graphic art sales representative of milk of calcium. Again, these have an amorphous andpunctate appearance and remain indeterminate. Stereotactic guided biopsy isrecommended. Alia Fraire MD IMG MAMMO ORDERABLES documented in this encounter Visit Diagnoses Diagnosis Mammographic microcalcification- Primary Mammographic microcalcification Mammographic microcalcification Mammographic microcalcification Mammographic microcalcification documented in this encounter Care Teams Digital Sales Manager Relationship Specialty Start Date End Date Lolly Oliveira MD [address] [place] [address] PCP - General 07/17/13 documented as of this encounter
--- OUTSIDE RECORDS SUMMARY | 2023-12-31 11:11 | XMS_ITS | Encounter Summary ---
Author Organization [facility] [place] [address] Care Team Providers Care Fryer Operator Name Role Phone Lolly Oliveira MD Primary Care Provider Reason for Visit * Reason Comments Psoriasis Encounter Details Date Type Department Care Team (Late st Contact Info) Description 04/09/2022 1:45 PM EST Office Visit Dermatology at [address] [address] Clay Ramírez MD [address] [facility] [place] [address] Psoriasis, guttate Social History Tobacco Use Types [...] EST Hospital Encounter Non-Invasive [place] [address] Arrived documented as of this encounter Visit Diagnoses Diagnosis Psoriasis, guttate Other psoriasis documented in this encounter Care Teams Fryer Operator Relationship Specialty Start Date End Date Lolly Oliveira MD [address] [place] [address] PCP - General 07/17/13 documented as of this encounter
--- OUTSIDE RECORDS SUMMARY | 2023-12-31 11:11 | XMS_ITS | Encounter Summary ---
Author Organization [facility] [place] [address] Care Team Providers Care Maintenance Journeyman Name Role Phone Lolly Oliveira MD Primary Care Provider [phone] Encounter Details Date Type Department Care Team (Latest Contact Info) Description 07/26/2013 9:44 AM EDT - 07/26/2013 11:59 PM EDT Hospital En[place] [phone] CLINIC, Lolly So MD [address] [place], [place] [id number] Mammographic microcalcification Discharge Disposition: Home Social History [...] Hospital Encounter Non-[place] [address] Arrived documented as of this encounter Procedures [...] are present on specimen digital X-ray. A [employer]-Stereo 13 Cylinder marker clip was placed. [...] mLs documented in this encounter Care Teams Maintenance Journeyman Relationship Specialty Start Date End Date Lolly Oliveira MD [address] [place] [address] PCP - General 07/17/13 documented as of this encounter
--- OUTSIDE RECORDS SUMMARY | 2023-12-31 11:11 | XMS_ITS | Encounter Summary ---
Author Organization [facility] [place] [address] Care Team Providers Care Leather Finisher Name Role Phone Lolly Oliveira MD Primary Care Provider [phone] Reason for Referral * Diagnostic Test (Routine) - Closed Specialty Diagnoses / Procedures Referred By Contac t Referred To Contact Radiology Diagnoses Left bundle branch block Nonischemic cardiomyopathy Procedures MRI Cardiac Morphology Function With Flow Velocity Quantification wwo Contrast MRI Cardiac Morphology Function wwo Contrast Lalit Mcmahon MD [facility] [place] [address] [place] [address] Referral ID Status Reason Start Date Expiration Date V isits Requested Visits Authorized [id number] Closed Specialty Service Requested 05/06/2022 11/07/2023 2 1 Encounter Details Date Type Department Care Team (Late st Contact Info) Description 05/06/2022 Orders Only Cardiology at [address] [address] Lalit Mcmahon MD [facility] [place] [address] Left bundle branch block; Nonischemic cardiomyopathy Social [...] AM EST Hospital Encounter Non-[place] [address] Arrived documented as of this encounter Results [...] cardiomyopathies documented in this encounter Care Teams Leather Finisher Relationship Specialty Start Date End Date Lolly Oliveira MD [address] [place] [address] PCP - General 07/17/13 documented as of this encounter
--- OUTSIDE RECORDS SUMMARY | 2023-12-31 11:11 | XMS_ITS | Encounter Summary ---
Author Organization [facility] [place] [address] Care Team Providers Care Exterminator Helper Name Role Phone Lolly Oliveira MD Primary Care Provider Reason for Visit * Reason Comments Follow-up Encounter Details Date Type Department Care Team (Late st Contact Info) Description 06/06/2021 8:45 AM EDT Office Visit Dermatology at [address] [address] Clay Ramírez MD [address] [facility] [place] [address] Psoriasis, guttate Social History Tobacco Use Types [...] [facility] Hospital Encounter Non-Invasive [place] [phone] Arrived documented as of this encounter Visit Diagnoses Diagnosis Psoriasis, guttate Other psoriasis documented in this encounter Care Teams Exterminator Helper Relationship Specialty Start Date End Date Lolly Oliveira MD [address] [place] [address] PCP - General 07/17/13 documented as of this encounter
--- OUTSIDE RECORDS SUMMARY | 2023-12-31 11:11 | XMS_ITS | Encounter Summary ---
Author Organization [facility] [place] [address] Care Team Providers Care Fixture Repairer Fabricator Name Role Phone Unavailable Primary Care Provider Unavailabl e Encounter Details Date Type Department Care Team (Late st Contact Info) Description 07/14/2013 External Results XRay at [address] [place] [address] Provider, Scanning Social History Tobacco Use Types [...] Hospital Encounter Non-Invasive Cardiology Lab [facility] [place] [address] Arrived documented as of this encounter Procedures [...]
--- OUTSIDE RECORDS SUMMARY | 2023-12-31 11:11 | XMS_ITS | Encounter Summary ---
Author Organization [facility] [place] [address] Care Team Providers Care Director Of Enterprise Strategy Name Role Phone Unavailable Primary Care Provider Unavailabl e Encounter Details Date Type Department Care Team (Late st Contact Info) Description 07/04/2012 [place] [phone] Eleno Christian MD [facility] [place] [address] Social History Tobacco Use Types Packs/Day Years [...] AM EST Hospital Encounter Non-Invasive [place] [phone] Arrived documented as of this encounter Procedures [...] is a Non-reportable exam Eleno Christian MD [facility] FILM LIBRARY ORD ERABLES documented in this encounter Visit Diagnoses Not on filedocumented in this encounter
--- OUTSIDE RECORDS SUMMARY | 2023-12-31 11:11 | XMS_ITS | Encounter Summary ---
Author Organization [facility] [place] [address] Care Team Providers Care Travel Physical Therapist Name Role Phone Lolly Oliveira MD Primary Care Provider [phone] Encounter Details Date Type Department Care Team (Late st Contact Info) Description 10/09/2021 Telephone Dermatology at [address] [phone] Nora Meredith LPN Social History [...] Hospital Encounter Non[place] [address] Arrived documented as of this encounter Visit Diagnoses Not on filedocumented in this encounter Care Teams Travel Physical Therapist Relationship Specialty Start Date End Date Lolly Oliveira MD [address] [place] [address] PCP - General 07/17/13 documented as of this encounter
[2023-12-31 11:12] VITALS: BP 136/69; PULSE 67
== END 2024-01-06 23:59 | disposition home or self-care (01) ==
LOC: CR 11:08
PROVIDERS: PCP Family Medicine; Visit Provider Internal Medicine Cardiovascular Disease
DX: R69 Illness, unspecified (principal)

== ENCOUNTER 2024-01-17 15:36 | Outpatient (CLI) | payer MEDICARE, SELFPAY ==
--- NOTE | 2024-01-17 08:15 | DI.RAD_ITS ---
Exam(s) XR HIP RT AP LAT ONLY EXAM: XR HIP RT AP LAT ONLY INDICATION: ANNUAL F/U R ARIEL. COMPARISON: CR XR HIP RT COMPLETE AP PELVIS from 01/25/2023 TECHNIQUE: 2D digital imaging was performed. Two views. FINDINGS: Stable alignment of right hip prosthesis. No abnormal bony lucencies. DATA REPOSITORY: RADIATION DOSE DELIVERED:
== END 2024-01-17 15:37 | disposition home or self-care (01) ==
LOC: DIORS 15:36
PROVIDERS: PCP Family Medicine; Visit Provider Student in an Organized Health Care Education/Training Program
DX: Z47.1 Aftercare following joint replacement surgery (principal); Z96.641 Presence of right artificial hip joint
CPT/HCPCS: 99213; 73502

== ENCOUNTER 2024-02-02 11:17 | Outpatient (RCR) | payer SELFPAY ==
--- OUTSIDE RECORDS SUMMARY | 2024-01-07 11:16 | XMS_ITS | Encounter Summary ---
Author Organization [facility] Address [address] [place] [address] Care Team Providers Care Purchasing Administrator Name Role Phone Unavailable Primary Care Provider Unavailabl e Encounter Details Date Type Department Care Team (Late st Contact Info) Description 11/07/[address] [facility] Laboratory Services - [facility] ([facility]) [address] [place] [address] Kenneth Parker MD [address] [place] [id number] Social History Tobacco Use Types Packs/Day Years [...] ? LYLE, JING ? Accession #: ? [id number] ? : ? 1950 (Age: 58) ??F [...] Parker MD PATHOLOGY ORDERABLES Performing Organization Address City/State/[facility] Co de Phone Number [facility] [address] [place] [address] documented in this encounter Visit Diagnoses Not on filedocumented in this encounter
--- OUTSIDE RECORDS SUMMARY | 2024-01-07 11:16 | XMS_ITS | Encounter Summary ---
Author Organization [facility] Address [facility] [place] [address] Care Team Providers Care Interventional Physician Name Role Phone Lolly Oliveira MD Primary Care Provider [phone] Encounter Details Date Type Department Care Team (Late st Contact Info) Description 05/03/2023 Telephone Cardiology at [address] [phone] Lalit Mcmahon MD [facility] [place] [address] Social History Tobacco Use Types Packs/Day Years [...] AM EST Hospital Encounter Non-[place] [address] Arrived documented as of this encounter Visit Diagnoses Not on filedocumented in this encounter Care Teams Interventional Physician Relationship Specialty Start Date End Date Lolly Oliveira MD [address] [place] [address] PCP - General 07/17/13 documented as of this encounter
--- OUTSIDE RECORDS SUMMARY | 2024-01-07 11:16 | XMS_ITS | Encounter Summary ---
Author Organization [facility] [address] Care Team Providers Care Wall Covering Installer Name Role Phone Lolly Oliveira MD Primary Care Provider [phone] Reason for Visit * Reason Comments Follow-up 8 weeks UVB treatmen t twice weekly Encounter Details Date Type Department Care Team (Late st Contact Info) Description 07/19/2023 11:00 AM EDT Office Visit Dermatology at [address] [phone] Clay Ramírez MD [address], [place] A DERMATOLOGY [place], [place] [phone] Psoriasis Social History Tobacco Use Types Packs/Day [...] [facility] En[facility] Non-Invasive [place] [address] Arrived documented as of this encounter Visit Diagnoses Diagnosis Psoriasis Other psoriasis documented in this encounter Care Teams Wall Covering Installer Relationship Specialty Start Date End Date Lolly Oliveira MD [address] [place] [address] PCP - General 07/17/13 documented as of this encounter
--- OUTSIDE RECORDS SUMMARY | 2024-01-07 11:16 | XMS_ITS | Clinical Summary ---
Author Organization [facility] [place] [address] Care Team Providers Care Automotive Mechanical Engineer Name Role Phone Lolly Oliveira MD Primary Care Provider [phone] Allergies Active Allergy Reactions Criticality Noted Date [...] spacer Active fluticasone propionate (Flonase) 50 mcg/actuation Mcdavid, Suspension 1 spray by Each Nare route [...] EDT Hospital Encounter Non-[place] [address] Discharge Disposition: Home from Last [...] EST Hospital Encounter Non-[place]vasive [place] [address] Arrived Health Maintenance Due Date Last Done [...] series) 11/07/2023 Medical Devices Implanted Type Area Forensic Anthropologist Device Identifier Shelf Expiration Date Model / Serial / Lot Bsx: [id number]: [id number]/18/2 023 Implanted: by Lalit Mcmahon MD (Quantity not on file) Defibrillator Chest Wall [employer] [id number] / [id number] / Bsx: [id number]: [id number]/18/2 023 Implanted: by Lalit Mcmahon MD (Quantity not on file) Lead Heart [employer] [id number] / [id number] / Bsx: [id number]: [id number] Implanted: by Lalit Mcmahon MD (Quantity not on file) Lead Heart [employer] [id number] / [id number] / Bsx: [id number]: [id number]/18/2 023 Implanted: by Lalit Mcmahon MD (Quantity not on file) Lead Heart [employer] [id number] / [id number] / Procedures Procedure Name Priority Date/Time Associated [...] Status decision made by: Patient Care Teams Automotive Mechanical Engineer Relationship Specialty Start Date End Date Lolly Oliveira MD [address] [place] [address] PCP - General 07/17/13
--- OUTSIDE RECORDS SUMMARY | 2024-01-07 11:16 | XMS_ITS | Encounter Summary ---
Author Organization [facility] Address [address] [place] [address] Care Team Providers Care Industrial Registered Nurse Name Role Phone Lolly Oliveira MD Primary Care Provider [phone] Encounter Details Date Type Department Care Team (Late st Contact Info) Description 02/11/2021 Lab Requisition [facility] Pathology & Laboratory Medicine - [address] [address] Outr Resulting Lab, Provider Social History Tobacco [...] Lab MICROBIOLOGY - GENERAL ORDERABLES [facility] [address] [place] [address] * COVID-19 TESTING (02/11/2021 8:00 EST) COVID-19 rt-PCR Result Negative Negative 02/12/2021 14:17 EST [facility] Comment: This test has not [...] was performed using the med SARS-CoV-2 assay ([employer] on the Med 6800 System Performing Lab Med 68[address] [facility] Lab 02/12/2021 14:17 EST [facility] Swab 02/11/2021 8:00 EST 02/11/2021 22:22 EST Provider Outr Resulting Lab MICROBIOLOGY - GENERAL ORDERABLES [facility] [address] [place] [address] documented in this encounter Visit Diagnoses Not on filedocumented in this encounter Care Teams Industrial Registered Nurse Relationship Specialty Start Date End Date Lolly Oliveira MD [address] [place] [address] PCP - General 11/13/08 documented as of this encounter
--- OUTSIDE RECORDS SUMMARY | 2024-01-07 11:16 | XMS_ITS | Continuity of Care Document ---
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 completed DENYS Bauer, [facility] 12/20/2023 15:25:14 Past Encounters Encounter ID Performer Location Encounter Start Date Encounter Closed Date Diagnosis/Indication Diagnosis SNOMED-CT Code Diagnosis ICD10 Code [id number] JU CORTEZ MD [facility] [address] [place] [address] 11/26/2023 07:26:08 11/26/2023 08:10:59 Screening mammography 45635376 Z12.31 Adjustment disorder 1722 6007 F43.20 Asthma 910593166 J45.90 9 Essential hypertension 37680122 I10 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 Cardiomyopathy 63486421 I10 Hyperlipidemia 15982624 E78.5 Prediabetes 950214550 R7 3.03 Health Concerns Section Related Observation LastModified by Organization Detai ls LastModified Time None Recorded Concern Status LastModified by Organization Details LastModified Time None Recorded Payers Encounter Date Sequence Insurance Name Policy Number Policy Lema Covered Member ID Lema Member ID Guarantor Name 11/26/2023 1 [id number]IC[place]/ [place]ANTAGE - PPO) [id number] Luna Mott [id number] Luna Mott Notes Date Note Type Note Provider Name and Address Organization Details Recorded Time 11/26/2023 text/html HPI Notes: Thais here today for follow-up of cardiomyopathy, obesity MD [address], [place], [address], [facility] 11/28/2023 09:26:44 OBGyn Episode No OBEpisode recorded.
--- OUTSIDE RECORDS SUMMARY | 2024-01-07 11:16 | XMS_ITS | Encounter Summary ---
Author Organization [facility] [place] [address] Care Team Providers Care Network Relay Tester Name Role Phone Lolly Oliveira MD Primary Care Provider [phone] Encounter Details Date Type Department Care Team (Late st Contact Info) Description 05/18/2023 Telephone Dermatology at [address] [address] Nora Meredith LPN Social History [...] SERVICE UNIT Hospital Encounter [place] [address] Arrived documented as of this encounter Visit Diagnoses Not on filedocumented in this encounter Care Teams Network Relay Tester Relationship Specialty Start Date End Date Lolly Oliveira MD [address] [place] [address] PCP - General 07/17/13 documented as of this encounter
--- OUTSIDE RECORDS SUMMARY | 2024-01-07 11:16 | XMS_ITS | Encounter Summary ---
Author Organization [facility] Address [address] [place] [address] Care Team Providers Care Line Service Person Name Role Phone Lolly Oliveira MD Primary Care Provider [phone] Encounter Details Date Type Department Care Team (Late st Contact Info) Description 04/25/2009 Orders Only [facility] Laboratory Services - [facility] ([facility]) [address] [place], [place] [id number] Lolly Oliveira MD [address] [place], [place] [phone] Social History Tobacco Use Types Packs/Day Years [...] ? JING ALVARENGA ? Accession #: ? [id number] ? : ? 1950 (Age: 58) ??F [...] Lolly Oliveira MD PATHOLOGY ORDERABLES [facility] [address] [place] [address] documented in this encounter Visit Diagnoses Not on filedocumented in this encounter Care Teams Line Service Person Relationship Specialty Start Date End Date Lolly Oliveira MD [address] [place] [address] PCP - General 11/13/08 documented as of this encounter
--- OUTSIDE RECORDS SUMMARY | 2024-01-07 11:16 | XMS_ITS | Encounter Summary ---
Author Organization [facility] Address [address] [place] [address] Care Team Providers Care Medical Billing Service Name Role Phone Lolly Oliveira MD Primary Care Provider [phone] Encounter Details Date Type Department Care Team (Late st Contact Info) Description 04/17/2005 Results Only [facility] [place] [facility] conversion [address] [place] [address] Lolly Oliveira MD [address] [place], [place] [phone] Social History Tobacco Use Types Packs/Day Years [...] ? JING ALVARENGA ? Accession #: ? [id number] : ? 1950 (Age: 54) ??F ?Collect Date: ? 04/17/2005 Location: ? [facility] ? Receive Date: ? 04/21/2005 Provider: ?LOLLY OLIVEIRA MD Copy to: ? Specimen/Source: ?ThinPrep Pap Test, Cervix/Endocervix, processed on NetsocketPrep Imaging System, with manual evaluation Last Menstrual [...] Oliveira MD PATHOLOGY ORDERABLES [facility] [address] [place] [address] documented in this encounter Visit Diagnoses Not on filedocumented in this encounter Care Teams Medical Billing Service Relationship Specialty Start Date End Date Lolly Oliveira MD [address] [place] [address] PCP - General 11/13/08 documented as of this encounter
--- OUTSIDE RECORDS SUMMARY | 2024-01-07 11:16 | XMS_ITS | Encounter Summary ---
Author Organization [facility] [address] Care Team Providers Care Trial Judge Name Role Phone Lolly Oliveira MD Primary Care Provider Encounter Details Date Type Department Care Team (Latest Contact Info) Description 10/18/2023 10:00 AM EDT - 10/18/2023 11:59 PM EDT Hospital Encounter [place] [address] Discharge Disposition: Home Social History Tobacco Use [...] with spacer fluticasone propionate (Flonase) 50 mcg/actuation [place], Suspension 1 spray by Each Nare route daily as needed. documented as of this encounter Plan of Treatment Upcoming Encounters Date Type Department Care Team (Late st Contact Info) Description 01/16/2024 10:00 AM EST Hospital Encounter Non-[place] [address] Arrived documented as of this encounter Procedures [...] on filedocumented in this encounter Care Teams Trial Judge Relationship Specialty Start Date End Date Lolly Oliveira MD [address] [place] [address] PCP - General 07/17/13 documented as of this encounter
--- OUTSIDE RECORDS SUMMARY | 2024-01-07 11:16 | XMS_ITS | Encounter Summary ---
Author Organization [facility] Address [address] [place] [address] Care Team Providers Care Data Input Clerk Name Role Phone Lolly Oliveira MD Primary Care Provider [phone] Encounter Details Date Type Department Care Team (Late st Contact Info) Description 05/02/2004 Results Only [facility] [place] conversion [address] [place] [address] Lolly Oliveira MD [address] [place], [place] [phone] Social History Tobacco Use Types Packs/Day Years [...] 68. [facility] Report Status Final [id number] [facility] 05/02/2004 9:32 EST 05/10/2004 9:32 EST Lolly Oliveira MD MICROBIOLOGY - GENER AL ORDERABLES [facility] [address] [place] [address] * CYTOPATHOLOGY (05/02/2004 0:00 EST) Pathology Report: CYTOPATHOLOGY REPORT Reports generated via electronic interface contain original data; however they are lacking the format of the original report. Caution should be taken when reading/interpreti ng unformatted reports. Name: ? JING ALVARENGA ? Accession #: ? [id number] : ? 1950 (Age: 53) ??F ?Collect [...] Oliveira MD PATHOLOGY ORDERABLES Performing Organization Address City/State/[facility] Co de Phone Number [facility] [address] [place] [address] documented in this encounter Visit Diagnoses Not on filedocumented in this encounter Care Teams Data Input Clerk Relationship Specialty Start Date End Date Lolly Oliveira MD [address] [place] [address] PCP - General 11/13/08 documented as of this encounter
--- OUTSIDE RECORDS SUMMARY | 2024-01-07 11:16 | XMS_ITS | Encounter Summary ---
Author Organization [facility] Address [address] [place] [address] Care Team Providers Care Learning And Development Manager Name Role Phone Lolly Oliveira MD Primary Care Provider [phone] Encounter Details Date Type Department Care Team (Late st Contact Info) Description 04/12/2007 Results Only [facility] conversion [address] [place] [address] Lolly Oliveira MD [address] [place], [place] [phone] Social History Tobacco Use Types Packs/Day Years [...] ? JING ALVARENGA ? Accession #: ? [id number] : ? 1950 (Age: 56) ??F ?Collect Date: ? 04/12/2007 Location: ? [facility] ? Receive Date: ? 04/13/2007 Provider: ?LOLLY OLIVEIRA MD Copy to: ? Specimen/Source: ?ThinPrep Pap Test, Cervix/Endocervix, processed on Intertwine ThinPrep Imaging System, with manual evaluation Last [...] Oliveira MD PATHOLOGY ORDERABLES [facility] [address] [place] [address] documented in this encounter Visit Diagnoses Not on filedocumented in this encounter Care Teams Learning And Development Manager Relationship Specialty Start Date End Date Lolly Oliveira MD [address] [place] [address] PCP - General 11/13/08 documented as of this encounter
--- OUTSIDE RECORDS SUMMARY | 2024-01-07 11:16 | XMS_ITS | Encounter Summary ---
Author Organization [facility] [place] [address] Care Team Providers Care Research Center Director Name Role Phone Lolly Oliveira MD Primary Care Provider [phone] Encounter Details Date Type Department Care Team [...] AM EST Hospital Encounter Non-[place]vasive [place] [address] Arrived documented as of this encounter Visit Diagnoses Not on filedocumented in this encounter Care Teams Research Center Director Relationship Specialty Start Date End Date Lolly Oliveira MD [address] [place] [address] PCP - General 07/17/13 documented as of this encounter
--- OUTSIDE RECORDS SUMMARY | 2024-01-07 11:16 | XMS_ITS | Referral Summary ---
Author Organization [facility] Address [address] [place] [address] Care Team Providers Care Water Quality Analyst Name Role Phone Lolly Oliveira MD Primary Care Provider [phone] Social History Tobacco Use Types Packs/Day Years Used Date Smoking Tobacco: Never Assessed Sex and Gender Information Value Date Recorded Sex Assigned at Not on file Gender Identity Not on file Sexual Orientation Not on file Plan of Treatment Not on file Care Teams Water Quality Analyst Relationship Specialty Start Date End Date Lolly Oliveira MD [address] [place] [address] PCP - General 11/13/08
--- OUTSIDE RECORDS SUMMARY | 2024-01-07 11:16 | XMS_ITS | Encounter Summary ---
Author Organization [facility] Address [address] [place] [address] Care Team Providers Care Hydrographer Name Role Phone Lolly Oliveira MD Primary Care Provider [phone] Encounter Details Date Type Department Care Team (Late st Contact Info) Description 03/21/2019 Lab Requisition [facility] Pathology & Laboratory Medicine - [address] [address] Unknown, Provider, Social History Tobacco Use Types [...] 211 - 911 pg/mL 03/22/2019 11:52 EST [facility] Blood VENOUS BLOOD / Unknown 03/16/2019 9:25 EST 03/21/2019 21:35 EST Provider Unknown CHEMISTRY & BLOOD GA S ORDERABLES [facility] [address] [place] [address] documented in this encounter Visit Diagnoses Not on filedocumented in this encounter Care Teams Hydrographer Relationship Specialty Start Date End Date Lolly Oliveira MD [address] [place] [address] PCP - General 11/13/08 documented as of this encounter
--- OUTSIDE RECORDS SUMMARY | 2024-01-07 11:16 | XMS_ITS | Encounter Summary ---
Author Organization [facility] Address [address] [place] [address] Care Team Providers Care History Professor Name Role Phone Lolly Oliveira MD Primary Care Provider [phone] Encounter Details Date Type Department Care Team (Late st Contact Info) Description 03/06/2003 Results Only [facility] conversion [address] [place] [address] Lolly Oliveira MD [address] [place], [place] [phone] Social History Tobacco Use Types Packs/Day Years [...] City/State/[facility] Co de Phone Number [facility] [address] [place] [address] documented in this encounter Visit Diagnoses Not on filedocumented in this encounter Care Teams History Professor Relationship Specialty Start Date End Date Lolly Oliveira MD [address] [place] [address] PCP - General 11/13/08 documented as of this encounter
--- OUTSIDE RECORDS SUMMARY | 2024-01-07 11:16 | XMS_ITS | Encounter Summary ---
Author Organization [facility] Address [address] [place] [address] Care Team Providers Care Grading Machine Feeder Name Role Phone Lolly Oliveira MD Primary Care Provider [phone] Encounter Details Date Type Department Care Team (Late st Contact Info) Description 06/16/2012 Results Only [facility] Laboratory Services - [facility] ([facility]) [address] [place], [place] [phone] Lolly Oliveira MD [address] [place], [place] [id number] Social History Tobacco Use Types Packs/Day Years [...] ? JING ALVARENGA ? Accession #: ? [id number] : ? 1950 (Age: 61) ??F ?Collect [...] MD PATHOLOGY ORDERABLES [facility] [address] [place] [address] documented in this encounter Visit Diagnoses Not on filedocumented in this encounter Care Teams Grading Machine Feeder Relationship Specialty Start Date End Date Lolly Oliveira MD [address] [place] [address] PCP - General 11/13/08 documented as of this encounter
--- OUTSIDE RECORDS SUMMARY | 2024-01-07 11:16 | XMS_ITS | Clinical Summary ---
Author Organization [facility] Address [address] [place] [address] Care Team Providers Care Reading Interventionist Name Role Phone Lolly Oliveira MD Primary Care Provider [phone] Social History Tobacco Use Types Packs/Day Years [...] COVID-19 Vaccine ( season) 2023 Care Teams Reading Interventionist Relationship Specialty Start Date End Date Lolly Oliveira MD [address] [place], [place] [phone] PCP - General 11/13/08
--- OUTSIDE RECORDS SUMMARY | 2024-01-07 11:16 | XMS_ITS | Encounter Summary ---
Author Organization [facility] Address [address] [place] [address] Care Team Providers Care Cutting Torch Operator Name Role Phone Lolly Oliveira MD Primary Care Provider [phone] Encounter Details Date Type Department Care Team (Late st Contact Info) Description 05/29/2002 Results Only [facility] - [place] conversion [address] [place] [address] Silvia Diehl, [address] [place] [address] Social History Tobacco Use Types Packs/Day Years [...] ? JING MOTT ? Accession #: ? [id number] : ? 1950 (Age: 51) ??F ?Collect Date: ? 05/29/2002 Location: ? [facility] ? Receive Date: ? 05/31/2002 Provider: ?SILVIA DIEHL ROLL WEIGHER Copy to: ? Specimen/Source: ?ThinPrep Pap Test, [...] Report [facility] 05/29/2002 05/31/2002 Silvia Diehl ROLL WEIGHER PATHOLOGY ORDERABLES [facility] [address] [place] [address] documented in this encounter Visit Diagnoses Not on filedocumented in this encounter Care Teams Cutting Torch Operator Relationship Specialty Start Date End Date Lolly Oliveira MD [address] [place] [address] PCP - General 11/13/08 documented as of this encounter
--- OUTSIDE RECORDS SUMMARY | 2024-01-07 11:16 | XMS_ITS | Encounter Summary ---
Author Organization [facility] Address [address] [place] [address] Care Team Providers Care Supervisor Sound Technician Name Role Phone Lolly Oliveira MD Primary Care Provider [phone] Encounter Details Date Type Department Care Team (Late st Contact Info) Description 02/20/2020 Lab Requisition [facility] Pathology & Laboratory Medicine - [address] [address] Outr Resulting Lab, Provider Social History Tobacco [...] in accordance with CLIA regulations, [employer] (CAP) guidelines (May 25, 2019), and FDA guidance (May 06, 2019). This test is only for use under the Food and Drug Administration's Emergency Use Authorization. Swab ENTIRE NASOPHARYNX / Unknown 02/19/2020 16:30 EST 02/20/2020 16:09 EST Provider Outr Resulting Lab MICROBIOLOGY - GENERAL ORDERABLES [facility] [place], [place] * COVID-19 TESTING (02/19/2020 16:30 EST) COVID-19 rt-PCR Result NEGATIVE Negative 02/22/2020 23:41 EST [facility] Comment: 2019-novel Coronavirus (2019-nCoV) not [...] in accordance with CLIA regulations, [employer] (CAP) guidelines (May 25, 2019), and FDA guidance (May 06, 2019). This test is only for use under the Food and Drug Administration's Emergency Use Authorization. Performing Lab [facility] 02/22/2020 23:41 EST [facility] Swab 02/19/2020 16:3 0 EST 02/20/2020 16:09 EST Provider Outr Resulting Lab MICROBIOLOGY - GENERAL ORDERABLES [facility] [address] [place] [address] [facility] [place], [place] documented in this encounter Visit Diagnoses Not on filedocumented in this encounter Care Teams Supervisor Sound Technician Relationship Specialty Start Date End Date Lolly Oliveira MD [address] [place] [address] PCP - General 11/13/08 documented as of this encounter
--- OUTSIDE RECORDS SUMMARY | 2024-01-07 11:16 | XMS_ITS | Encounter Summary ---
Author Organization [facility] [place] [address] Care Team Providers Care Health Information Director Name Role Phone Lolly Oliveira MD Primary Care Provider [phone] Encounter Details Date Type Department Care Team (Latest Contact Info) Description 07/20/2023 10:00 AM EDT - 07/20/2023 11:59 PM EDT Hospital Encounter Non[place] [address] Discharge Disposition: Home Social History Tobacco Use [...] MEDICAL CENTER Hospital Encounter Non-[place] [address] Arrived documented as of this encounter Procedures [...] on filedocumented in this encounter Care Teams Health Information Director Relationship Specialty Start Date End Date Lolly Oliveira MD [address] [place] [address] PCP - General 07/17/13 documented as of this encounter
--- OUTSIDE RECORDS SUMMARY | 2024-01-07 11:16 | XMS_ITS | Encounter Summary ---
Author Organization [facility] [place] [address] Care Team Providers Care Wool Dyer Name Role Phone Lolly Oliveira MD Primary Care Provider [phone] Encounter Details Date Type Department Care Team (Late st Contact Info) Description 05/18/2023 Refill Dermatology at [address] [address] Nora Meredith LPN Social [...] patient. She voiced understanding. Order sent to [facility] drug. documented in this encounter Plan of Treatment Upcoming Encounters Date Type Department Care Team (Late st Contact Info) Description 01/16/2024 10:00 AM EST Hospital Encounter Non-[place] [address] Arrived documented as of this encounter Visit Diagnoses Not on filedocumented in this encounter Care Teams Wool Dyer Relationship Specialty Start Date End Date Lolly Oliveira MD [address] [place] [address] PCP - General 07/17/13 documented as of this encounter
--- OUTSIDE RECORDS SUMMARY | 2024-01-07 11:16 | XMS_ITS | Encounter Summary ---
Author Organization [facility] Address [address] [place] [address] Care Team Providers Care Railway Signal Operator Name Role Phone Lolly Oliveira MD Primary Care Provider [phone] Encounter Details Date Type Department Care Team (Late st Contact Info) Description 04/01/2005 Results Only [facility] - [place] conversion [address] [place] [address] Blair Dukes MD [address] [place] [id number] Social History Tobacco Use Types Packs/Day Years [...] ? JING ALVARENGA ? Accession #: ? [id number] ? : ? 1950 (Age: 54) ??F [...] ? Received in [place]e' s fixative labelled [place] and #1 ??terminal ileum bx is a single 0.3 x 0.2 x 0.2 cm tissue, submitted intact as (A). Received in [place]e' s fixative labelled [place] and #2 ??transverse colon bx is a single 0.2 x 0.2 x 0.2 cm tissue, submitted intact as (B). [facility] Le[facility] End of Report [facility] 04/01/2005 04/02/2005 15: 24 EST Blair Dukes MD PATHOLOGY ORDERABLES [facility] [address] [place] [address] documented in this encounter Visit Diagnoses Not on filedocumented in this encounter Care Teams Railway Signal Operator Relationship Specialty Start Date End Date Lolly Oliveira MD [address] [place] [address] PCP - General 11/13/08 documented as of this encounter
--- OUTSIDE RECORDS SUMMARY | 2024-01-07 11:16 | XMS_ITS | Encounter Summary ---
Author Organization [facility] Address [address] [place] [address] Care Team Providers Care Legal Technician Name Role Phone Lolly Oliveira MD Primary Care Provider [phone] Encounter Details Date Type Department Care Team (Late st Contact Info) Description 05/27/2021 Lab Requisition [facility] Pathology & Laboratory Medicine - [address] [address] Iman Moran, DO [address] [place], [place] [id number] Encounter for other general examination Social History [...] if applicable. 05/30/2021 13:31 EDT [facility] Final Diagnosis A. COLON, POLYP AT 90 CM, BIOPSY/POLYPECTOM Y: - Tubular adenoma. 05/30/2021 13:31 [facility] Attestation By the signature below, the attending physician certifies that they have 1) personally conducted a gross and/or microscopic examination of the described specimen(s), and/or personally interpreted the results of laboratory testing of the described specimen(s), and 2) personally rendered or confirmed the above diagnosis. 05/30/2021 13:31 [facility] at 1331 Clinical History Severe diverticula and polypectomy x1 05/30/2021 13:31 [facility] Gross Description A. Received in formalin labelled with proper patient identification (initials J, K) and colon polyp x1 at 90 cm is a light pineda polypoid tissue measuring 0.2 x 0.2 x 0.2 cm. Submitted intact in A1. MICKEY CARLOS(ASCP) 05/27/2021 19:11 05/30/2021 13:31 [facility] Performing Lab [facility] 05/30/2021 13:31 [facility] Scanned Images 05/30/2021 13:31 [facility] Tissue ENTIRE COLON / Unknown 05/27/2021 11:23 EDT 05/27/2021 16:33 EDT Iman Moran DO PATHOLOGY ORDERABLES [facility] [address] [place] [address] documented in this encounter Visit Diagnoses Diagnosis Encounter for other general examination documented in this encounter Care Teams Legal Technician Relationship Specialty Start Date End Date Lolly Oliveira MD [address] [place] [address] PCP - General 11/13/08 documented as of this encounter
--- OUTSIDE RECORDS SUMMARY | 2024-01-07 11:16 | XMS_ITS | Data Portability ---
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 available 05/21/2023 Because Of Any Health Problems, Do You Need The Help Of Another Person With Your Personal Care Needs Such As Eating, Bathing, Dressing, Or Getting Around The House? No [email or web address] Information not available 05/21/2023 Can You Handle Your Own Money Without Help? Yes [email or web address] Information not available 05/21/2023 Are You Having Difficulties Driving Your Car? No [email or web address] Information no t available 05/21/2023 Do You Always Fasten Your Seat Belt When You Are In A Car? Yes- Usually [email or web address] Information not available 05/21/2023 How Often During The Past Four Weeks Have You Been Bothered By Any Of The Following Problems? Falling Or Dizzy When Standing Up? Never [email or web address] Information not available 05/21/2023 Sexual Problems? Never [email or web address] Informat ion not available 05/21/2023 Trouble Eating Well? Sometimes [email or web address] Information not available 05/21/2023 Teeth Or Denture Problems? Sometimes [email or web address] Information not available 05/21/2023 Problems Using The Telephone? Never Information not available 05/21/2023 Tiredness Or Fatigue? Sometimes [email or web address] Information not available 05/21/2023 Have You Had 2 Or More Falls Or Sustained An Injury With A Fall In The Last Year? No [email or web address] Information no t available 05/21/2023 Do You Have Difficulty With Walking Or Balance? No [email or web address] Information not available 05/21/2023 Do You Currently Use A Hearing Device? No [email or web address] Information not available 05/21/2023 Do You Currently Have Any Trouble With Your Vision? Yes [email or web address] Information no t available 05/21/2023 Do You Exercise For About 20 Minutes Three Or More Days A Week? Yes- Most Of The Time [email or web address] Information not available 05/21/2023 Are There Any Safety Concerns In Your Home (see Attached CDC Pamphlet)? No [email or web address] Information not available 05/21/2023 How Often Do You Have Trouble Taking Medicines The Way You Have Been Told To Take Them? I Always Take Them As Prescribed [email or web address] Information not available 05/21/2023 How Confident Are You That You Can Control And Manage Most Of Your Health Problems? Very Confident [email or web address] Information not available 05/21/2023 Do You Currently Have Any Difficulty With Your Hearing? No [email or web address] Information not available 05/21/2023 Date Of Most Recent SBINS 05/21/2023 [email or web address] Information not available 05/21/2023 What Was The Date Of Your Most Recent Tobacco Screening? 09/01/2023 Information not available 09/01/2023 Has Tobacco Cessation Counseling Been Provided? Yes Information not available 09/01/2023 On What Date Was Tobacco Cessation Counseling Provided? 09/01/2023 Information not available 09/01/2023 Do You Or Have You Ever Used Any Other Forms Of Tobacco Or Nicotine? No [email or web address] Information not available 05/21/2023 Sex: Female Functional [...] preservative free, adsorbed 11/03/2018 completed Not Available [facility] 01/15/2023 04:53:39 Tdap 04/12/2007 completed Not Available [facility] 04:53:39 zoster live 06/16/2012 completed Not Available [facility] 01/15/2023 04:53:40 Pneumococcal conjugate PCV 13 09/17/2015 completed Not Available [facility] 01/15/2023 04:53:40 Influenza, high-dose, trivalent, PF 11/26/2017 completed [facility] 01/15/2023 04:53:41 Td(adult) unspecified formulation 09/30/1992 completed Not Available [facility] 01/15/2023 04:53:41 Influenza, split virus, trivalent, preservative 11/28/2015 completed Not Available [facility] 01/15/2023 04:53:41 Influenza, split virus, trivalent, preservative 01/04/2015 completed Not Available [facility] 01/15/2023 04:53:41 Influenza, split virus, quadrivalent, PF 12/21/2018 completed Not Available [facility] 01/15/2023 04:53:41 zoster recombinant 08/30/2018 completed Not Available [facility] 01/15/2023 04:53:42 zoster recombinant 01/26/2018 completed Not Available [facility] 01/15/2023 04:53:42 Influenza, high-dose, quadrivalent, PF 12/04/2020 completed Not Available [facility] 01/15/2023 04:53:43 Influenza, high-dose, quadrivalent, PF 12/11/2019 completed Not Available [facility] 01/15/2023 04:53:43 Influenza, high-dose, quadrivalent, PF 12/29/2021 completed Not Available [facility] 01/15/2023 04:53:43 COVID-19, mRNA, LNP-S, PF, 100 mcg/0.5mL dose or 50 mcg/0.25mL dose 07/09/2021 completed Not Available [facility] 01/15/2023 04:53:43 COVID-19 vaccine, vector-nr, rS-Ad26, PF, 0.5 mL 05/02/2020 completed Not Available [facility] 01/15/2023 04:53:44 SARS-COV-2 (COVID-19) vaccine, UNSPECIFIED 05/31/2020 completed Not Available [facility] 01/15/2023 04:53:44 SARS-COV-2 (COVID-19) vaccine, UNSPECIFIED 01/03/2021 completed Not Available [facility] 01/15/2023 04:53:44 pneumococcal polysaccharide PPV23 07/05/2014 completed Not Available [facility] 2022 04:53:45 Hep B, unspecified formulation 04/14/1993 [...] influenza, unspecified formulation 12/13/2012 completed Not Available [facility] 01/15/2023 04:53:47 influenza, unspecified formulation 12/18/2008 completed [...] high-dose, quadrivalent, PF 12/17/2022 completed Not Available [facility] 03/19/2023 05:33:03 COVID-19, mRNA, LNP-S, PF, herminio-sucrose, 30 mcg/0.3 mL 12/28/2022 completed Not Available [facility] 03/19/2023 05:33:03 COVID-19, mRNA, LNP-S, bivalent, PF, 50 mcg/0.5 mL or 25mcg/0.25 mL dose 12/01/2023 completed DENYS Bauer, [facility] 12/20/2023 15:23:33 Respiratory syncytial virus (RSV) vaccine, unspecified 12/01/2023 completed DENYS Bauer [facility] 12/20/2023 15:24:29 influenza, unspecified formulation 12/01/2023 completed DENYS Bauer [facility] 12/20/2023 15:25:14 Past Encounters Encounter ID Performer Location Encounter Start Date Encounter Closed Date Diagnosis/Indication Diagnosis SNOMED-CT Code Diagnosis ICD10 Code [id number] LOLLY CORTEZ MD [address] [address] 05/21/2023 10:03:54 05/21/2023 11:37:49 Onychomycosis 204842468 B35.1 Asthma 709085180 J45.90 9 Cardiomyopathy 65592665 I10 Disorder of hip joint 42 7161372 M12.859 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 Hyperlipidemia 54476979 E78.5 Vulval and /or perineal noninflammatory disorders 816990904 N90.9 Adult heal th examination 031969865 Z00.[id number] [place] [address] 09/01/2023 10:23:16 09/01/2023 13:28:10 Vertigo 377873667 R42 Impacted c erumen of bilateral ears 0798343558 685716 H61.23 [id number] LOLLY CORTEZ MD [facility] [address] [place] [address] 11/26/2023 07:26:08 11/26/2023 08:10:59 Screening mammography 03864661 Z12.31 Adjustment disorder 1722 6007 F43.20 Asthma 191878473 J45.90 9 Essential hypertension 86489249 I10 Guttate psoriasis 196801 00 L40.4 Cardiomyopathy 01579835 I10 Hyperlipidemia 20865274 E78.5 Prediabetes 773358135 R7 3.03 Health Concerns Section Related Observation LastModified by Organization Detai ls LastModified Time None Recorded Concern Status LastModified by Organization Details LastModified Time None Recorded Advance Directives Directive None Recorded Payers Encounter Date Sequence Insurance Name Policy Number Policy Lema Covered Member ID Lema Member ID Guarantor Name 05/21/2023 1 [id number]ANT[place] - [place]PO) [id number] Luna Mott [id number] Luna Mott 09/01/2023 1 [place] - [place]) [id number] Luna Mott [id number] Luna Mott 11/26/2023 1 [place] - [place]) [id number] Luna Mott [id number] Luna Mott Notes Date Note Type Note Provider Name and Address Organization Details Recorded Time 05/21/2023 text/html HPI Notes: Thais here today for an annual wellness exam MD [address], [place], [address], [facility]. 05/24/2023 18:32:35 09/01/2023 text/html HPI Notes: [...] the name of it. [address], [place], [address], [facility]. 09/01/2023 13:55:07 11/26/2023 text/html HPI Notes: Thais here today for follow-up of cardiomyopathy, obesity MD [address], [place], [address], [facility]. 11/28/2023 09:26:44 OBGyn Episode No OBEpisode recorded.
--- OUTSIDE RECORDS SUMMARY | 2024-01-07 11:16 | XMS_ITS | Encounter Summary ---
Author Organization [facility] Address [address] [place] [address] Care Team Providers Care Flux Plant Operator Name Role Phone Lolly Oliveira MD Primary Care Provider [phone] Encounter Details Date Type Department Care Team (Late st Contact Info) Description 11/13/2020 Lab Requisition [facility] Pathology & Laboratory Medicine - [address] [address] Outr Resulting Lab, Provider Social History Tobacco [...] Lab MICROBIOLOGY - GENERAL ORDERABLES [facility] [address] [place] [address] * COVID-19 TESTING (11/13/2020 7:30 EDT) COVID-19 rt-PCR Result Negative Negative 11/14/2020 11:[address] [facility] Comment: This test has [...] performed using the med SARS-CoV-2 assay ([employer] on the Med 6800 System Performing Lab Med [address] [facility] Lab 11/14/2020 11:[address] [facility] Swab 11/13/2020 7:30 EDT 11/13/2020 20:57 EDT Provider Outr Resulting Lab MICROBIOLOGY - GENERAL ORDERABLES [facility] [address] [place] [address] documented in this encounter Visit Diagnoses Not on filedocumented in this encounter Care Teams Flux Plant Operator Relationship Specialty Start Date End Date Lolly Oliveira MD [address] [place] [address] PCP - General 11/13/08 documented as of this encounter
[2024-01-07 11:17] VITALS: BP 139/69; PULSE 65
--- OUTSIDE RECORDS SUMMARY | 2024-01-07 11:17 | XMS_ITS | Encounter Summary ---
[place] [address] Care Team Providers Care Management Manager Name Role Phone Lolly Oliveira MD Primary Care Provider [phone] Encounter Details Date Type Department Care Team (Latest Contact Info) Description 07/26/2013 9:45 AM EDT - 07/26/2013 11:59 PM EDT Hospital [place] [address] Mammographic microcalcification Social History Tobacco Use Types [...] Non-Invasive [place]iology [place] [address] Arrived documented as of this encounter Procedures Procedure Name Priority Date/Time Associated Diagnosis Comments SURGICAL PATHOLOGY REPORT Routine 07/26/2013 12:12 PM EDT MAMMO SPECIMEN IMAGING DURING BIOPSY Routine 07/26/2013 11:58 AM EDT Mammographic microcalcification documented in this encounter Results * Surgical Pathology Report (07/26/2013 12:12 PM EDT) Final Diagnosis ? [facility] ? Provider: ?? ELENO CHRISTIAN ?? Pt. Name: ?? JING ALVARENGA ? Acc #: ?[id number] ?Pt. ? Col Date: ?? 07/26/2013 ? [...] Partially fragmented, fibrofatty needle core biopsies. ? [facility] ? Provider: ?? ELENO CHRISTIAN ?? Pt. Name: ?? JING ALVARENGA ? Acc #: ?[id number] ?Pt. ? Col Date: ?? 07/26/2013 ? [...] MD PATHOLOGY/CYTOLOGY O RDERABLES Performing Organization Address City/State/[facility] wy Phone Number [facility] [place] [address] * Mammo Specimen Imaging During Biopsy (07/26/2013 [...] microcalcification documented in this encounter Care Teams Management Manager Relationship Specialty Start Date End Date Lolly Oliveira MD [address] [place] [address] PCP - General 07/17/13 documented as of this encounter
--- OUTSIDE RECORDS SUMMARY | 2024-01-07 11:17 | XMS_ITS | Encounter Summary ---
Author Organization [facility] [place] [address] Care Team Providers Care Burner Shaft Name Role Phone Lolly Oliveira MD Primary Care Provider [phone] Reason for Visit * Reason Comments Skin Check Encounter Details Date Type Department Care Team (Late st Contact Info) Description 11/23/2014 10:00 AM EDT Office Visit Dermatology at [address] [address] Clay Ramírez MD [address] [facility], [place] [address] Dermatofibroma; Nevus; Solar lentigo Discharge Disposition: Home [...] MEDICAL CENTER Hospital Encounter [place] [address] Arrived documented as of this encounter Visit Diagnoses Diagnosis Dermatofibroma Benign neoplasm of skin, site unspecified Nevus Benign neoplasm of skin, site unspecified Solar lentigo Other dyschromia documented in this encounter Care Teams Burner Shaft Relationship Specialty Start Date End Date Lolly Oliveira MD [address] [place] [address] PCP - General 07/17/13 documented as of this encounter
--- OUTSIDE RECORDS SUMMARY | 2024-01-07 11:17 | XMS_ITS | Encounter Summary ---
Author Organization [facility] Address [facility] [place] [address] Care Team Providers Care Mohel Name Role Phone Lolly Oliveira MD Primary Care Provider [phone] Reason for Visit * Auth/Cert (Routine) Specialty Diagnoses / Procedures Referred By Contac t Referred To Contact Diagnoses Left bundle-branch block, unspecified Other cardiomyopathies Left bundle branch block [I44.7]Nonischemic cardiomyopathy [I42.8] Procedures PRG CATH PLMT LEFT HEART CATH & ARTS W/INJ & ANGIO IMG S&I ELECTROPHYSIOLOGY PROCEDURE Lalit Mcmahon MD [facility] [place] [address] [facility] Referral ID Status Reason Start Date Expiration Date Visits Re quested Visits Authorized [id number] 1 1 Encounter Details Date Type Department Care Team (Latest Contact Info) Description 07/23/2022 11:39 AM EDT - 07/24/2022 10:23 AM EDT Hospital [place] [id number] Lalit Mcmahon MD [facility] [place] [address] Left bundle branch block; Nonischemic cardiomyopathy; Cardiac resynchronization therapy defibrillator (MEAT SPECIALIST-D) in place Discharge Disposition: Home Social [...] Luna Mott Patient Age: 71 y.o. Language: Qatari Race: White Ethnicity: Not nor Admit date: 07/23/2022 Discharge date and time: 07/24/22 Attending Physician: Lalit Mcmahon MD Discharge Physician: Lalit Mcmahon MD Follow-up Recommendations for Providers: - s/p MEAT SPECIALIST-D implant - post implant QRS 130 [...] ??? Solar lentigo Operations/Major Procedures: 07/23/22: [facility] MEAT SPECIALIST-D implant History of Presentation: 71 y.o. female with a history of HFrEF, LBBB, QRS >150, NYHA II who is POD#1 of MEAT SPECIALIST-D implant ([employer]). Hospital Course: Elective admission for MEAT SPECIALIST-D implant Admitted post-implant for pain management, [...] (heart failure with reduced ejection fraction) [I50.20] MEAT SPECIALIST-D implant Admission Condition: good Indication for [...] g Refills: 3 fluticasone propionate 50 mcg/actuation [place], Suspension Commonly known as: Flonase 1 spray [...] incision. Make sure to use a clothes model (such as a towel) in between the [...] F. The office scheduling phone number is [phone]. ARM MOVEMENT RESTRICTIONS POST-IMPLANT - Do not [...] please call the Cardiac ElectrophysiologyTriage Nurse at [phone], option 3. General Instructions None Discharge References/Attachments [...] incision. Make sure to use a clothes model (such as a towel) in between the [...] F. The office scheduling phone number is [phone]. ARM MOVEMENT RESTRICTIONS POST-IMPLANT - Do not [...] please call the Cardiac ElectrophysiologyTriage Nurse at [phone], option 3. documented in this encounter Medications [...] with spacer fluticasone propionate (Flonase) 50 mcg/actuation [place], Suspension 1 spray by Each Nare route [...] Cardiac Electrophysiology Post-Implant Device Interrogation Luna Mott [id number] 07/24/2022 History: Luna Mott is a 71 y.o. female with a history of HFrEF, LBBB, QRS >150, NYHA II who is POD#1 of MEAT SPECIALIST-D implant ([employer]). Overall feels well this morning. Ready [...] Neuro- A&Ox3 Device Interrogation: Data ?? Family Practice Medical Doctor Model # Serial # Generator [employer] G447 [id number] Atrial Lead [employer] [id number] [id number] RV Lead [employer] 0672 444792 LV Lead [employer] 4674 [id number] ?? Diagnostics Pacing Mode: DDD 60-130 Underlying Rhythm: [place] Atrial Episodes: None Ventricular Episodes: None FINAL PROGRAMMING: Pacing: Mode Lower rate (ppm) Upper rate (ppm) ?? DDD 60 130 VF: Rate (bpm) #Antitachycardia pacing First shock energy (J) ?? 200 Quick convert 41 VT: 170 Monitor only Monitor only ? Battery and Leads Impedances (ohms) Sensing (mV) Thresholds HV RA RV LV RA RV LV RA RV LV 73 857 140 9330 (LVa) 7.7 13.1 >25 0.4V @ 0.4 ms 0.4V @ 0.4 ms 0.5 V @ 1.0 ms POD#1 CXR: All leads in nominal positioning Impression: 71 y.o. female who is s/p MEAT SPECIALIST-D implant for LBBB, NYHA II, HFrEF. [...] [facility]) Fadi Nunez MD 07/24/2022 Pager: [phone] I met with the patient today and [...] agreement. ? Dr. Lalit Mcmahon, electrophysiology attending ([id number]) * Zaria Wright RN - 07/23/2022 8:28 [...] HF, QRS > 150 ms presents for MEAT SPECIALIST-D placement. ROS: Denies recent fevers or [...] 0.9) flush 5 mL 5 mL Intravenous [id number] ramos MD ??? sodium chloride 0.9 % [...] HF, QRS > 150 ms presents for MEAT SPECIALIST-D placement. Backup would be LBBAP lead. Antibiotics: cefazolin Rationales for, intended benefits and potential risk of planned procedures reviewed. The patient indicated understanding and agreement with the plan. Informed consent signed. Procedure checklist completed. Fadi Nunez MD Cardiac Electrophysiology Fellow [facility] Pager [phone] 07/23/2022 I met with the patient today [...] agreement. ? Dr. Lalit Mcmahon, electrophysiology attending ([id number]) documented in this encounter Miscellaneous Notes * Brief Op Note - Lalit Mcmahon MD - 07/23/2022 4:04 PM EDT Brief Operative Note Patient Name: Luna Mott : [id number] MR#: [id number] Case Date: 07/23/2022 Surgeon: Surgeon(s) and Role: [...] AM EST Hospital Encounter [place] [address] Arrived Scheduled Orders Name Type Priority Associated Diagnoses Orde r Schedule EKG 12 Lead ECG Routine Cardiac resynchronization therapy defibrillator (MEAT SPECIALIST-D) in place One Time for 1 [...] (Bezet) 522 ms MUSE SYSTEM Calculated R [place] 78 degrees MUSE SYSTEM Calculated T [place] -71 degrees MUSE SYSTEM INTERPRETATION AV dual-paced [...] have questions please contact the health childcare attendant that requested your imaging first. ? Electronically signed by: Kwame Vargas MD, [facility] ([phone]), at 07/24/2022 6:43 AM Narrative 07/24/2022 6:43 [...] who have questions please contactthe health childcare attendant that requested your imaging first. Electronically signed by: Kwmae Vargas MD, [facility]([phone]), at 07/24/2022 6:43 AM Lalit Mcmahon MD IMG DX ORDERABLES * ELECTROPHYSIOLOGY PROCEDURE (07/23/2022 1:11 PM EDT) Anatomical Region Laterality Modality Other Narrative 07/23/2022 4:24 PM EDT Table formatting from the original result was not included. BIVENTRICULAR ICD IMPLANTATION Marketing Regional Consultant: Lalit Mcmahon MD Fellow: Fadi Nunez [...] lateral branch of the CS in the DANISH view. This branch was cannulated with a [...] entire procedure. LEAD AND GENERATOR DATA: Family Practice Medical Doctor Model # Serial # Generator [employer] G447 [id number] Atrial Lead [employer] 7841 [id number] RV Lead [employer] 0672 000698 LV Lead [employer] 4674 [id number] PACE/SENSE DATA: Sensed wave (mV) Threshold (V) [...] (cGycm2) 300 CONCLUSIONS: Successful implantation of a [employer] biventricular ICD for primary prevention and treatment of symptoms related to congestive heart failure. Follow up in EP clinic in 1-2 months. Procedures performed: new ICD system ( cpt 93168-D7); implant LV lead at time of ICD insertion (cpt 45057) I have read, edited and approve of this report: Lalit Mcmahon MD S Cardiac Electrophysiology 07/23/2022 4:22 PM Procedure Note Lalit Mcmahon MD - 07/23/2022 BIVENTRICULAR ICD IMPLANTATION Marketing Regional Consultant: Lalit Mcmahon MD Fellow: Fadi Nunez [...] appropriate lateralbranch of the CS in the DANISH view. This branch was cannulated with a [...] the entireprocedure. LEAD AND GENERATOR DATA: Family Practice Medical Doctor Model # Serial # Generator [employer] G447 [id number] Atrial Lead [employer] 7841 [id number] RV Lead [employer] 0672 [id number] LV Lead [employer] 4674 [id number] PACE/SENSE DATA: Sensed wave (mV) Threshold (V) [...] (cGycm2) 300 CONCLUSIONS: Successful implantation of a [employer] biventricular ICD forprimary prevention and treatment of symptoms related to congestive heartfailure. Follow up in EP clinic in 1-2 months. Procedures performed: new ICD system ( cpt 18244-H8); implant LV lead attime of ICD insertion (cpt 95777) I have read, edited and approve of this report: Lalit Mcmahon MD [facility] Cardiac Electrophysiology 07/23/2022 4:22 PM Lalit Mcmahon MD EP PROCEDURE ORDERAB LES * POCT Glucose (07/23/2022 12:54 PM EDT) Glucose, POC 83 65 - 199 mg/dL [facility] Comment: Supplemental ranges: <140 mg/dL before meals <180 mg/dL all other times of the day Blood 07/23/2022 12:5 4 PM EDT 07/23/2022 12:54 PM EDT Lalit Mcmahon MD POINT OF CARE TEST O RDERABLES Performing Organization Address [facility] Co de Phone Number [facility] [place] [address] * EKG 12 Lead (07/23/2022 12:33 PM EDT) Ventricular rate 72 BPM MUSE SYSTEM Atrial Rate 72 BPM MUSE SYSTEM P-R Interval 158 ms MUSE SYSTEM QRS Duration 176 ms MUSE SYSTEM Q-T Interval 458 ms MUSE SYSTEM QTC Calculated (Bezet) 501 ms MUSE SYSTEM Calculated P [place] 34 degrees MUSE SYSTEM Calculated R [place] 12 degrees MUSE SYSTEM Calculated T [place] -173 degrees MUSE SYSTEM INTERPRETATION Normal sinus rhythm Left bundle branch block Abnormal ECG No previous ECGs available Confirmed by MD Salome, Lalit ([id number]) on 07/23/2022 1:19:03 PM MUSE SYSTEM 07/23/2022 12:3 3 PM EDT 07/23/2022 1:19 PM EDT Lalit Mcmahon MD ECG ORDERABLES Performing Organization Address [facility] de Phone Number MUSE SYSTEM * Differential, Automated (07/23/2022 11:55 AM EDT) Neutrophil % 62.6 % [facility] Neutrophil Absolute 4.14 1.70 - 6.10 x10(3)/[facility] LABORATORY Lymph % 27.0 % [facility] Lymphocytes Abs 1.8 0.9 - 3.2 x10(3)/[facility] LABORATORY Monocyte % 7.3 % [facility] HOSP ITAL LABORATORY Monocyte Abs 0.5 0.3 - 0.9 x10(3)/[facility] LABORATORY Eos % 2.3 % [facility] Eosinophils Abs 0.2 0.0 - 0.4 x10(3)/[facility] LABORATORY Basophil % 0.6 % [facility] ITAL LABORATORY Baso Absolute 0.0 0.0 - 0.1 x10(3)/[facility] LABORATORY Immature Gran % 0.20 % [facility] Comment: Immature granulocytes(IG's)percentage and absolute count will include metamyelocytes, myelocytes, and promyelocytes. Blood smears from CBCs yielding IG's will be scanned manually for concordance. If this scan disagrees with the automated IG or if promyelocytes are noted, a manual differential will be performed. Immature Gran Absolute 0.01 0.00 - 0.04 x10(3)/[facility] LABORATORY Blood 07/23/2022 11:5 5 AM EDT 07/23/2022 12:07 PM EDT Narrative Resulting Agency Comment Spec In Lab Lalit Mcmahon MD HEMATOLOGY ORDERABLE S [facility] [place] [address] * Hemogram (07/23/2022 11:55 AM EDT) White Blood Cell 6.6 4.0 - 9.5 x10(3)/[facility] LABORATORY Red Blood Cell 4.50 4.00 - 5.21 x10(6)/[facility] Hemoglobin 13.7 11.7 - 15.5 g/dL [facility] Hematocrit 42.5 35.7 - 45.8 % [facility] Mean Cell Volume 94.4 82.6 - 94.4 fL [facility] Mean Cell Hemoglobin 30.4 27.1 - 32.0 pg [facility] Mean Cell Hemoglobin Concentration 32.2 31.7 - 35.0 g/dL [facility] Platelet 193 145 - 357 x10(3)/[facility] LABORATORY RDW Standard Deviation 45.5 37.0 - 46.0 fL [facility] RDW coefficient of variation 13.2 11.5 - 14.1 % [facility] Mean Platelet Volume 9.5 7.6 - 12.9 fL [facility] NRBC% auto 0.0 % [facility] HOSP ITAL LABORATORY NRBC Absolute 0.000 0.000 - 0.000 x10(3)/mcL [facility] Blood 07/23/2022 11:5 5 AM EDT 07/23/2022 12:07 PM EDT Narrative Resulting Agency Comment Spec In Lab Lalit Mcmahon MD HEMATOLOGY ORDERABLE S [facility] [address] [facility] [place] [address] * (ABNORMAL) BMP w/fasting Glucose (07/23/2022 11:55 AM EDT) Glucose Fasting 110(H) 65 - 99 mg/dL [facility] Comment: ?Fasting* Glucose Interpretive Criteria [...] of Diabetes Mellitus, Position Statement from the [place] [employer]. ??Diabetes Care, Volume 33, Supplement 1, Mar 2009 Blood Urea Nitrogen 23(H) 8 - 18 mg/dL [facility] Creatinine 1.07 0.70 - 1.20 mg/dL [facility] Sodium 141 135 - 145 mmol/L [facility] Potassium 4.8 3.5 - 5.0 mmol/L [facility] Comment: Please note: ??Patients with WBC >100,000 may have falsely elevated Potassium levels. ??For accurate Potassium quantification in these patients send serum separator tube (gold top) for subsequent determinations. ??Contact the Clinical Chemistry Laboratory if there are any questions. Chloride 106 98 - 107 mmol/L [facility] Carbon Dioxide 26 22 - 31 mmol/L [facility] Anion Gap 9 5 - 15 mmol/L [facility] Calcium 9.7 8.5 - 10.5 mg/dL [facility] Est Glomerular Filtration Rate 55(L) >=60 mL/min/1. 73 m?? [facility] Comment: This patient's estimated GFR [...] Mcmahon MD CHEMISTRY ORDERABLES Performing Organization Address [facility] Co de Phone Number [facility] [place] [address] * Prothrombin Time (07/23/2022 11:55 AM EDT) Prothrombin Time 11.7 9.4 - 12.5 sec [facility] International Normalization Ratio 1.0 [facility] Comment: An INR <2.0 indicates [...] MD HEMATOLOGY ORDERABLE S Performing Organization Address City/[facility] Co de Phone Number [facility] [place] [address] documented in this encounter Visit Diagnoses Diagnosis HFrEF (heart failure with reduced ejection fraction)- Primary Left bundle branch block Other left bundle branch block Nonischemic cardiomyopathy Other primary cardiomyopathies Cardiac resynchronization therapy defibrillator (MEAT SPECIALIST-D) in place Left bundle branch block [...] Routine documented in this encounter Care Teams Mohel Relationship Specialty Start Date End Date Lolly Oliveira MD [address] [place] [address] PCP - General 07/17/13 documented as of this encounter
--- OUTSIDE RECORDS SUMMARY | 2024-01-07 11:17 | XMS_ITS | Encounter Summary ---
Author Organization [facility] [place] [address] Care Team Providers Care Shoe Caser Name Role Phone Lolly Oliveira MD Primary Care Provider Reason for Visit * Reason Onset Date Comments Post Procedure Call 07/30/2022 Encounter Details Date Type Department Care Team (Late st Contact Info) Description 07/30/2022 Notes Only Cardiology at [address] [phone] Rosenda Sutton, RN Post Procedure Call Social [...] 07/30/2022 9:59 AM EDTSummary: Post Procedure Call: CLIENT ADVOCATE implant EP RN Post-Procedure Note: Date of [...] Note: Follow-up Recommendations for Providers: - s/p CLIENT ADVOCATE-D implant - post implant QRS 130 ms - reviewed post-implant instructions - no medication changes - Follow up in device clinic for wound/device check in ~10 days??([facility]) Wound Care: -Wound will heal [...] AM [facility] Hospital Encounter [place] [address] Arrived documented as of this encounter Visit Diagnoses Not on filedocumented in this encounter Care Teams Shoe Caser Relationship Specialty Start Date End Date Lolly Oliveira MD [address] [place] [address] PCP - General 07/17/13 documented as of this encounter
--- OUTSIDE RECORDS SUMMARY | 2024-01-07 11:17 | XMS_ITS | Encounter Summary ---
Author Organization [facility] [place] [address] Care Team Providers Care Woodworking Craftsman Name Role Phone Lolly Oliveira MD Primary Care Provider Encounter Details Date Type Department Care Team (Latest Contact Info) Description 07/17/2013 8:40 AM EDT - 07/17/2013 11:59 PM EDT Hospital Encounter XRay at [address] [place] [phone] CLINIC, [facility] Discharge Disposition: Home Social [...] AM EST Hospital Encounter Non-[place] [phone] Arrived documented as of this encounter Visit Diagnoses Not on filedocumented in this encounter Care Teams Woodworking Craftsman Relationship Specialty Start Date End Date Lolly Oliveira MD [address] [place] [address] PCP - General 07/17/13 documented as of this encounter
--- OUTSIDE RECORDS SUMMARY | 2024-01-07 11:17 | XMS_ITS | Encounter Summary ---
Author Organization [facility] [place] [address] Care Team Providers Care Rental Representative Name Role Phone Lolly Oliveira MD Primary Care Provider [phone] Reason for Visit * Reason Onset Date Comments Pre Procedure Call 07/01/2022 Encounter Details Date Type Department Care Team (Late st Contact Info) Description 07/01/2022 Telephone Cardiology at [address] [phone] Rosenda Sutton RN Pre Procedure Call Social History Tobacco Use Types Packs/Day Years Used Date Smoking Tobacco: Never Sex and Gender Information Value Date Recorded Sex Assigned at Not on file Gender Identity Not on file Sexual Orientation Not on file documented as of this encounter Miscellaneous Notes * Telephone Encounter - Rosenda Sutton RN - 07/01/2022 9:30 AM EDTSummary: Pre Procedure Call: CITY BAILIFF implant EP NAILER HAND COORDINATION CHECKLIST Patient Name: Luna Mott Patient Performing Wood Heel Flap Inserter: Lalit Mcmahon Referring Provider: Lolly Oliveira Date of Procedure: 07/23/22 Arrival Time/ Case Time: 12:00 pm / 1:00 pm Check In Location: Quality Assurance Desk 4W Date Patient was Called: 07/01/22 Procedure: CITY BAILIFF Company: [employer] Type: CITY BAILIFF-D Laterality: LEFT Orders: Yes Lab Orders: Yes [...] , understands that they will need class a regional drivers on day of discharge Notified pt that Goff catheter may be placed on day of procedure depending on type & duration of case. documented in this encounter Plan of Treatment Upcoming Encounters Date Type Department Care Team (Late st Contact Info) Description 01/16/2024 10:[address] [facility] Hospital Encounter [place] [address] Arrived documented as of this encounter Visit Diagnoses Not on filedocumented in this encounter Care Teams Rental Representative Relationship Specialty Start Date End Date Lolly Oliveira MD [address] [place] [address] PCP - General 07/17/13 documented as of this encounter
--- OUTSIDE RECORDS SUMMARY | 2024-01-07 11:17 | XMS_ITS | Encounter Summary ---
Author Organization [facility] [place] [address] Care Team Providers Care Pharmacy Technician Name Role Phone Lolly Oliveira MD Primary Care Provider [phone] Encounter Details Date Type Department Care Team (Late Contact Info) Description 01/14/2022 Telephone Dermatology at [address] [address] Nora Meredith LPN Social [...] return to phototherapy. New order sent to [facility]. Reviewed with patient Dr. Mar recommendation. She agrees with plan of care. Advised patient order will be sent to [facility]. She voiced understanding. documented in this encounter Plan of Treatment Upcoming Encounters Date Type Department Care Team (Late Contact Info) Description 01/16/2024 10:00 AM EST Hospital Encounter Non-Invasive [place] [address] Arrived documented as of this encounter Visit Diagnoses Not on filedocumented in this encounter Care Teams Pharmacy Technician Relationship Specialty Start Date End Date Lolly Oliveira MD [address] [place] [address] PCP - General 07/17/13 documented as of this encounter
--- OUTSIDE RECORDS SUMMARY | 2024-01-07 11:17 | XMS_ITS | Encounter Summary ---
Author Organization [place] [address] Care Team Providers Care Oxidized Finish Plater Name Role Phone Lolly Oliveira MD Primary Care Provider [phone] Encounter Details Date Type Department Care Team (Latest Contact Info) Description 01/21/2023 10:00 AM EST - 01/21/2023 11:59 PM EST Hospital Encounter [place] [phone] Discharge Disposition: Home Social History Tobacco Use [...] AM EST Hospital Encounter [place] [address] Arrived documented as of this [...] on filedocumented in this encounter Care Teams Oxidized Finish Plater Relationship Specialty Start Date End Date Lolly Oliveira MD [address] [place] [address] PCP - General 07/17/13 documented as of this encounter
--- OUTSIDE RECORDS SUMMARY | 2024-01-07 11:17 | XMS_ITS | Encounter Summary ---
Author Organization [facility] [place] [address] Care Team Providers Care Appeals Analyst Name Role Phone Lolly Oliveira MD Primary Care Provider [phone] Encounter Details Date Type Department Care Team (Latest Contact Info) Description 10/23/2022 10:00 AM EDT - 10/23/2022 11:59 PM EDT Hospital Encounter [place] [address] Discharge Disposition: Home Social History Tobacco Use [...] with spacer fluticasone propionate (Flonase) 50 mcg/actuation [place], Suspension 1 spray by Each Nare route [...] [facility] [place] [address] Arrived documented as of this [...] on filedocumented in this encounter Care Teams Appeals Analyst Relationship Specialty Start Date End Date Lolly Oliveira MD [address] [place] [address] PCP - General 07/17/13 documented as of this encounter
--- OUTSIDE RECORDS SUMMARY | 2024-01-07 11:17 | XMS_ITS | Encounter Summary ---
Author Organization [facility] [place] [address] Care Team Providers Care Pulverizer Feeder Name Role Phone Lolly Oliveira MD Primary Care Provider [phone] Reason for Visit * Diagnostic Test (Routine) - Closed Specialty Diagnoses / Procedures Referred By Contac t Referred To Contact Radiology Diagnoses Left bundle branch block Nonischemic cardiomyopathy Procedures MRI Cardiac Morphology Function With Flow Velocity Quantification wwo Contrast MRI Cardiac Morphology Function wwo Contrast Lalit Mcmahon MD [facility] [place] [address] [facility] [place] [address] Referral ID Status Reason Start Date Expiration Date V isits Requested Visits Authorized [id number] Closed Specialty Service Requested 05/06/2022 11/07/2023 2 1 Encounter Details Date Type Department Care Team (Latest Contact Info) Description 07/14/2022 9:09 AM EDT - 07/14/2022 11:59 PM EDT Hospital [place] [address] Lalit Mcmahon MD [facility] [place] [address] Discharge Disposition: Home Social History Tobacco Use [...] with spacer fluticasone propionate (Flonase) 50 mcg/actuation [place], Suspension 1 spray by Each Nare route [...] AM EST Hospital Encounter Non-Invasive [place] [address] Arrived documented as of this [...] mLs documented in this encounter Care Teams Pulverizer Feeder Relationship Specialty Start Date End Date Lolly Oliveira MD [address] [place] [address] PCP - General 07/17/13 documented as of this encounter
--- OUTSIDE RECORDS SUMMARY | 2024-01-07 11:17 | XMS_ITS | Encounter Summary ---
Author Organization Count Includes [facility] Address [facility] [place] [address] Care Team Providers Care Desk Officer Name Role Phone Lolly Oliveira MD Primary Care Provider [phone] Reason for Visit * Auth/Cert (Routine) Specialty Diagnoses / Procedures Referred By Contac t Referred To Contact Diagnoses Left bundle-branch block, unspecified Other cardiomyopathies Left bundle branch block [I44.7]Nonischemic cardiomyopathy [I42.8] Procedures PRG CATH PLMT LEFT HEART CATH & ARTS W/INJ & ANGIO IMG S&I ELECTROPHYSIOLOGY PROCEDURE Lalit Mcmahon MD [facility] [place] [address] [facility] Referral ID Status Reason Start Date Expiration Date Visits Re quested Visits Authorized [id number] 1 1 Encounter Details Date Type Department Care Team (Late st Contact Info) Description 07/23/2022 1:08 PM EDT Anesthesia Event [place] [address] Monae Gonzalez MD [facility] [place] [address] Maria Elena Snyder CRNA [facility] [place] [address] Anesthesia Record Procedure Summary Procedure Name Responsible [...] 1307; median cubital vein (antecubital fossa), right; rimw-hyz-pzehwf catheter system; Anatomical Landmarks; 20 gauge; 07/24/22; [...] 1343; metacarpal vein (top of hand), left; dcpt-zjv-hfnuwl catheter system; Anatomical Landmarks; US Not Used; [...] Procedure Summary Date: 07/23/22 Room / Location: [facility] A-LAB ROOM 3 / [facility] EP LABS Anesthesia Start: 1308 Anesthesia Stop: 1633 Procedure: ELECTROPHYSIOLOGY PROCEDURE (Left) Diagnosis: Left bundle branch block Nonischemic cardiomyopathy (Left bundle branch block [I44.7]Nonischemic cardiomyopathy [I42.8]) Providers: Lalit Mcmahon MD Responsible Provider: Monae Gonzalez MD Anesthesia Type: general ASA Status: 4 All Anesthesia Providers: Anesthesiologist: Monae Gonzalez MD; Dominique Sen MD CARE DIRECTOR RN: Maria Elena Snyder CRNA Vitals Value Taken [...] and Nonischemic CM (EF 15-20%)who presents for HOSIERY MATER-D. No prior anesthetic records. Pt states that [...] daughter/son and patient who. Plan discussed with CARE DIRECTOR RN. Anesthesia Screening documented in this encounter Plan of Treatment Upcoming Encounters Date Type Department Care Team (Late st Contact Info) Description 01/16/2024 10:00 AM [facility] Hospital Encounter Non-[place]vasive [place] [address] Arrived documented as of this encounter Visit Diagnoses Not on filedocumented in this encounter Administered Medications Inactive Administered Medications - up to 3 most recent administrations Medication Order MAR Action Action Date Dose Rate Site calcium chloride 10% (100 mg/mL) injection Intravenous, PRN, Starting on Myra 07/23/22 at 1332, Until Myar 07/23/22 at 1633, Anesthesia Intra-op, Routine Given [...] bolus injection (Anesthesia) Intravenous, PRN, Starting on Myar 07/23/22 at 1332, Until Myra 07/23/22 at [...] mg documented in this encounter Care Teams Desk Officer Relationship Specialty Start Date End Date Lolly Oliveira MD [address] [place] [address] PCP - General 07/17/13 documented as of this encounter
--- OUTSIDE RECORDS SUMMARY | 2024-01-07 11:17 | XMS_ITS | Encounter Summary ---
Author Organization [facility], 1928–[address] [place] [address] Care Team Providers Care Videogame Tester Name Role Phone Lolly Oliveira MD Primary Care Provider [phone] Reason for Visit * Reason Comments Follow-up Encounter Details Date Type Department Care Team (Late st Contact Info) Description 07/02/2022 8:00 AM EDT Office Visit Dermatology at [address] [phone] Clay Ramírez MD [address] [facility], [place] [address] Psoriasis, guttate Social History Tobacco Use Types [...] [facility] Hospital Encounter Non[place] [address] Arrived documented as of this encounter Visit Diagnoses Diagnosis Psoriasis, guttate Other psoriasis documented in this encounter Care Teams Videogame Tester Relationship Specialty Start Date End Date Lolly Oliveira MD [address] [place] [address] PCP - General 07/17/13 documented as of this encounter
--- OUTSIDE RECORDS SUMMARY | 2024-01-07 11:17 | XMS_ITS | Encounter Summary ---
Author Organization [facility] [place] [address] Care Team Providers Care Drill Presser Name Role Phone Lolly Oliveira MD Primary Care Provider [phone] Reason for Referral * Diagnostic Test (Routine) - Closed Specialty Diagnoses / Procedures Referred By Contac t Referred To Contact Radiology Diagnoses Left bundle branch block Nonischemic cardiomyopathy Procedures MRI Cardiac Morphology Function With Flow Velocity Quantification [facility] Contrast MRI Cardiac Morphology Function wwo Contrast Lalit Mcmahon MD [facility] [place] [address] [place] [address] Referral ID Status Reason Start Date Expiration Date V isits Requested Visits Authorized [id number] Closed Specialty Service Requested 05/06/2022 11/07/2023 2 1 Reason for Visit * Diagnostic Test (Routine) - Closed Specialty Diagnoses / Procedures Referred By Contac t Referred To Contact Radiology Diagnoses Left bundle branch block Nonischemic cardiomyopathy Procedures MRI Cardiac Morphology Function With Flow Velocity Quantification o Contrast MRI Cardiac Morphology Function wwo Contrast Lalit Mcmahon MD [facility] [place] [address] [place] [address] Referral ID Status Reason Start Date Expiration Date V isits Requested Visits Authorized [id number] Closed Specialty Service Requested 05/06/2022 11/07/2023 2 1 Encounter Details Date Type Department Care Team (Latest Contact Info) Description 07/14/2022 9:08 AM EDT Hospital Encounter MRI at [facility] [place] [address] Lalit Mcmahon MD [facility] [place] [address] Left bundle branch block; Nonischemic cardiomyopathy Discharge [...] with spacer fluticasone propionate (Flonase) 50 mcg/actuation [place], Suspension 1 spray by Each Nare route [...] 1950 [address] [facility] [address] Female [phone] (home) No relevant phone numbers on file. Lolly Oliveira MD None Allergies Allergen Reactions ??? Sulfa (Sulfonamide Antibiotics) Date/Time of call: July 07, 2022/11:03 AM/ PREVIOUS MRI SCAN? HEIGHT: WEIGHT: SCHEDULED SCAN: MRI CARDIAC MORPHOLOGY FUNCTION WITH FLOW VELOCITY QUANTIFICATION WWO CONTRAST [[id number]] Order Questions Answers Where will study be performed? [facility] Radiology [120] SUBJECTIVE: Very Claustrophobic [...] ( [place] ) You must have a frontload driver present when you check in. This patient has been informed that they require a frontload driver to drive them home after this procedure. In the absence of a frontload driver, IR will not be able to sedate for your scan. Pt verbalized understanding of these instructions during the pre-procedure education via phone. Yes Name of frontload driver: Daughter Phone number: PRIOR SCAN DATE/S SEDATION TYPE SUCCESSFUL 07/14/22 MRI Cardiac Morphology Function with Flow Velocity Quantification wwo Contrast Ativan 1mg x 1 dose Pass Revised 08/03/17 documented in this encounter Plan of Treatment Upcoming Encounters Date Type Department Care Team (Late st Contact Info) Description 01/16/2024 10:00 AM [facility] Hospital Encounter Non-Invasive [place] [address] Arrived documented as of this encounter Procedures [...] questions please contact the health animal care technician that requested your imaging first. ? Electronically signed by: Greyson Herron MD, [facility] ([phone]), at 07/15/2022 9:53 AM Narrative 07/15/2022 9:53 [...] have questions please contactthe health animal care technician that requested your imaging first. Lalit Mcmahon [...] mg documented in this encounter Care Teams Drill Presser Relationship Specialty Start Date End Date Lolly Oliveira MD [address] [place] [address] PCP - General 07/17/13 documented as of this encounter
--- OUTSIDE RECORDS SUMMARY | 2024-01-07 11:17 | XMS_ITS | Encounter Summary ---
Author Organization [facility] [place] [address] Care Team Providers Care Rn Ent Name Role Phone Lolly Oliveira MD Primary Care Provider [phone] Reason for Visit * Reason Comments Psoriasis Encounter Details Date Type Department Care Team (Late st Contact Info) Description 04/09/2022 1:45 PM EST Office Visit Dermatology at [address] [address] Clay Ramírez MD [address] [facility], [place] [address] Psoriasis, guttate Social History Tobacco Use Types [...] AM EST Hospital Encounter Non-[place] [address] Arrived documented as of this encounter Visit Diagnoses Diagnosis Psoriasis, guttate Other psoriasis documented in this encounter Care Teams Rn Ent Relationship Specialty Start Date End Date Lolly Oliveira MD [address] [place] [address] PCP - General 07/17/13 documented as of this encounter
--- OUTSIDE RECORDS SUMMARY | 2024-01-07 11:17 | XMS_ITS | Encounter Summary ---
Author Organization [facility] [place] [address] Care Team Providers Care Account Services Representative Name Role Phone Lolly Oliveira MD Primary Care Provider [phone] Encounter Details Date Type Department Care Team (Late st Contact Info) Description 04/01/2021 3:30 PM EST Office Visit Dermatology at [address] [phone] Clay Ramírez MD [address] [place] [address] Psoriasis, guttate Social History Tobacco Use Types [...] AM EST Hospital Encounter Non-[place] [address] Arrived documented as of this encounter Visit Diagnoses Diagnosis Psoriasis, guttate Other psoriasis documented in this encounter Care Teams Account Services Representative Relationship Specialty Start Date End Date Lolly Oliveira MD [address] [place] [address] PCP - General 07/17/13 documented as of this encounter
--- OUTSIDE RECORDS SUMMARY | 2024-01-07 11:17 | XMS_ITS | Encounter Summary ---
Author Organization [facility] [place] [address] Care Team Providers Care Vulcanizing Press Operator Name Role Phone Lolly Oliveira MD Primary Care Provider [phone] Reason for Visit * Reason Comments Follow-up Encounter Details Date Type Department Care Team (Late st Contact Info) Description 06/06/2021 8:45 AM EDT Office Visit Dermatology at [address] [address] Clay Ramírez MD [address] [facility], [place] [address] Psoriasis, guttate Social History Tobacco Use Types [...] [facility] Hospital Encounter Non-[place] [phone] Arrived documented as of this encounter Visit Diagnoses Diagnosis Psoriasis, guttate Other psoriasis documented in this encounter Care Teams Vulcanizing Press Operator Relationship Specialty Start Date End Date Lolly Oliveira MD [address] [place] [address] PCP - General 07/17/13 documented as of this encounter
--- OUTSIDE RECORDS SUMMARY | 2024-01-07 11:17 | XMS_ITS | Encounter Summary ---
Author Organization [facility] [place] [address] Care Team Providers Care Maxillofacial Prosthetics Dentist Name Role Phone Lolly Oliveira MD Primary Care Provider [phone] Reason for Referral * Diagnostic Test (Routine) - Closed Specialty Diagnoses / Procedures Referred By Contac t Referred To Contact Radiology Diagnoses Left bundle branch block Nonischemic cardiomyopathy Procedures MRI Cardiac Morphology Function With Flow Velocity Quantification wwo Contrast MRI Cardiac Morphology Function wwo Contrast Lalit Mcmahon MD [facility] [place] [address] [place] [address] Referral ID Status Reason Start Date Expiration Date V isits Requested Visits Authorized [id number] Closed Specialty Service Requested 05/06/2022 11/07/2023 2 1 Encounter Details Date Type Department Care Team (Late st Contact Info) Description 05/06/2022 Orders Only Cardiology at [address] [address] Lalit Mcmahon MD [facility] [place] [address] Left bundle branch block; Nonischemic cardiomyopathy Social [...] AM EST Hospital Encounter Non[place] [address] Arrived documented as of this encounter Results [...] questions please contact the health health care technician that requested your imaging first. ? Narrative [...] have questions please contactthe health health care technician that requested your imaging first. Lalit Mcmahon MD IMG MRI ORDERABLES documented in this encounter Visit Diagnoses Diagnosis Left bundle branch block Other left bundle branch block Nonischemic cardiomyopathy Other primary cardiomyopathies Left bundle branch block Other left bundle branch block Nonischemic cardiomyopathy Other primary cardiomyopathies documented in this encounter Care Teams Maxillofacial Prosthetics Dentist Relationship Specialty Start Date End Date Lolly Oliveira MD [address] [place] [address] PCP - General 07/17/13 documented as of this encounter
--- OUTSIDE RECORDS SUMMARY | 2024-01-07 11:17 | XMS_ITS | Encounter Summary ---
Author Organization [facility] [place] [address] Care Team Providers Care Ophthalmic Tech Name Role Phone Lolly Oilveira MD Primary Care Provider [phone] Encounter Details Date Type Department Care Team (Late st Contact Info) Description 03/15/2023 Telephone Cardiology at [address] [phone] Saranya Ma Social History Tobacco Use Types [...] to have an echo done at [facility] prior to her appt withmim there on 05/12/23. Message sent to Dr. Mcmahon asking him to put order in if he would like her to have this done. Saranya Ma Sr. Clinical Procedure [place]/Prep Manager documented in this encounter Plan of Treatment Upcoming Encounters Date Type Department Care Team (Late st Contact Info) Description 01/16/2024 10:00 AM EST Hospital Encounter Non-[place] [address] Arrived documented as of this encounter Visit Diagnoses Not on filedocumented in this encounter Care Teams Ophthalmic Tech Relationship Specialty Start Date End Date Lolly Oliveira MD [address] [place] [address] PCP - General 07/17/13 documented as of this encounter
--- OUTSIDE RECORDS SUMMARY | 2024-01-07 11:17 | XMS_ITS | Encounter Summary ---
Author Organization [facility] [place] [address] Care Team Providers Care Telegraph Printer Mechanic Name Role Phone Lolly Oliveira MD Primary Care Provider [phone] Reason for Visit * Reason Comments Follow-up Encounter Details Date Type Department Care Team (Late st Contact Info) Description 05/21/2022 8:00 AM EDT Office Visit Dermatology at [address] [phone] Clay Ramírez MD [address] [facility], [place] [address] Psoriasis, guttate Social History Tobacco Use Types [...] [facility] Hospital Encounter Non-[place] [address] Arrived documented as of this encounter Visit Diagnoses Diagnosis Psoriasis, guttate Other psoriasis documented in this encounter Care Teams Telegraph Printer Mechanic Relationship Specialty Start Date End Date Lolly Oliveira MD [address] [place] [address] PCP - General 07/17/13 documented as of this encounter
--- OUTSIDE RECORDS SUMMARY | 2024-01-07 11:17 | XMS_ITS | Encounter Summary ---
Author Organization [facility] Address [facility] [place] [address] Care Team Providers Care Dessert Cup Machine Feeder Name Role Phone Lolly Oliveira MD Primary Care Provider [phone] Encounter Details Date Type Department Care Team (Late st Contact Info) Description 07/16/2022 Telephone Cardiology at [address] [phone] Lalit Mcmahon MD [facility] [place] [address] Social History Tobacco Use Types Packs/Day Years [...] her nonischemic cardiomyopathy. She is scheduled for DOT NET DEVELOPER-D implantation next week and looks forward to the procedure. We will see each other next week. Lalit Mcmahon MD [facility] Cardiac Electrophysiology 07/16/2022 8:52 AM documented in this encounter Plan of Treatment Upcoming Encounters Date Type Department Care Team (Late st Contact Info) Description 01/16/2024 10:00 AM EST Hospital Encounter Non-[place]vasive [place] [address] Arrived documented as of this encounter Visit Diagnoses Not on filedocumented in this encounter Care Teams Dessert Cup Machine Feeder Relationship Specialty Start Date End Date Lolly Oliveira MD [address] [place] [address] PCP - General 07/17/13 documented as of this encounter
--- OUTSIDE RECORDS SUMMARY | 2024-01-07 11:17 | XMS_ITS | Encounter Summary ---
[place] [address] Care Team Providers Care User Experience Developer Name Role Phone Lolly Oliveira MD Primary Care Provider [phone] Encounter Details Date Type Department Care Team [...] AM EST Hospital Encounter Non-[place] [address] Arrived documented as of this encounter Visit Diagnoses Not on filedocumented in this encounter Care Teams User Experience Developer Relationship Specialty Start Date End Date Lolly Oliveira MD [address] [place] [address] PCP - General 07/17/13 documented as of this encounter
--- OUTSIDE RECORDS SUMMARY | 2024-01-07 11:17 | XMS_ITS | Encounter Summary ---
[place] [address] Care Team Providers Care Nutrition Counselor Name Role Phone Lolly Oliveira MD [...] EST Hospital Encounter Non-Invasive [place] [address] Arrived documented as of this encounter Visit Diagnoses Not on filedocumented in this encounter Care Teams Nutrition Counselor Relationship Specialty Start Date End Date Lolly Oliveira MD [address] [place] [address] PCP - General 07/17/13 documented as of this encounter
--- OUTSIDE RECORDS SUMMARY | 2024-01-07 11:17 | XMS_ITS | Encounter Summary ---
Author Organization [facility] Address [facility] [place] [address] Care Team Providers Care Fire Hazard Inspector Name Role Phone Lolly Oliveira MD Primary Care Provider [phone] Encounter Details Date Type Department Care Team (Late st Contact Info) Description 11/11/2022 Orders Only Cardiology at [address] [phone] Lalit Mcmahon MD [facility] [place] [address] Nonischemic cardiomyopathy Social History Tobacco Use Types Packs/Day Years Used Date Smoking Tobacco: Never Alcohol Use Standard Drinks/Week Comments Not Currently 0 (1 standard drink = 0.6 oz pur e alcohol) [facility] Inpatient Questions Answer Date Recorded Does Anyone [...] [facility] Hospital Encounter Non-In[place] [address] Arrived documented as of this encounter Visit Diagnoses Diagnosis Nonischemic cardiomyopathy Other primary cardiomyopathies documented in this encounter Care Teams Fire Hazard Inspector Relationship Specialty Start Date End Date Berrian, Lolly M, MD [address] [place] [address] PCP - General 07/17/13 documented as of this encounter
--- OUTSIDE RECORDS SUMMARY | 2024-01-07 11:17 | XMS_ITS | Encounter Summary ---
Author Organization [facility] [place] [address] Care Team Providers Care Full Time Name Role Phone Lolly Oliveira MD Primary Care Provider [phone] Encounter Details Date Type Department Care Team (Latest Contact Info) Description 04/21/2023 10:00 AM EST - 04/21/2023 11:59 PM EST Hospital Encounter [place] [address] Discharge Disposition: Home Social History Tobacco Use [...] with spacer fluticasone propionate (Flonase) 50 mcg/actuation [place], Suspension 1 spray by Each Nare route [...] AM EST Hospital Encounter Non-[place] [address] Arrived documented as of this [...] on filedocumented in this encounter Care Teams Full Time Relationship Specialty Start Date End Date Lolly Oliveira MD [address] [place] [address] PCP - General 07/17/13 documented as of this encounter
--- OUTSIDE RECORDS SUMMARY | 2024-01-07 11:17 | XMS_ITS | Encounter Summary ---
Author Organization [facility] [place] [address] Care Team Providers Care Nutrition Tech Name Role Phone Unavailable Primary Care Provider Unavailabl e Encounter Details Date Type Department Care Team (Late st Contact Info) Description 07/14/2013 External Results XRay at [address] [place] [address] Provider, Scanning Social History Tobacco Use Types [...] AM EST Hospital Encounter Non-Invasive Cardiology Lab [facility] [place] [address] Arrived documented as of this encounter Procedures [...]
--- OUTSIDE RECORDS SUMMARY | 2024-01-07 11:17 | XMS_ITS | Encounter Summary ---
Author Organization [facility] [place] [address] Care Team Providers Care Can Dryer Name Role Phone Lolly Oliveira MD Primary Care Provider [phone] Reason for Visit * Reason Onset Date Comments Other 07/24/2022 Implanted Cardia c Device Teaching/Education Encounter Details Date Type Department Care Team (Late st Contact Info) Description 07/24/2022 Notes Only Cardiology at [address] [phone] Letha Arroyo Other (Implanted Cardiac Device Teaching/Education) Social History Tobacco Use Types Packs/Day Years Used Date Smoking Tobacco: Never Alcohol Use Standard Drinks/Week Comments Not Currently 0 (1 standard drink = 0.6 oz pur e alcohol) [facility] Inpatient Questions Answer Date Recorded Does Anyone [...] to call the Cardiac Device Clinic at [phone] with any questions. Plan: Post op check: [...] [facility] Hospital Encounter Non-[place] [address] Arrived documented as of this encounter Visit Diagnoses Not on filedocumented in this encounter Care Teams Can Dryer Relationship Specialty Start Date End Date Lolly Oliveira MD [address] [place] [address] PCP - General 07/17/13 documented as of this encounter
--- OUTSIDE RECORDS SUMMARY | 2024-01-07 11:17 | XMS_ITS | Encounter Summary ---
Author Organization [facility] Address [facility] [place] [address] Care Team Providers Care Immigration Coordinator Name Role Phone Lolly Oliveira MD Primary Care Provider [phone] Encounter Details Date Type Department Care Team (Late st Contact Info) Description 03/15/2023 Orders Only Cardiology at [address] [address] Lalit Mcmahon MD [facility] [place] [address] Nonischemic cardiomyopathy; Biventricular ICD (implantable cardioverter-defibrill ator) [...] AM EST Hospital Encounter [place] [address] Arrived documented as of this encounter Visit Diagnoses Diagnosis Nonischemic cardiomyopathy Other primary cardiomyopathies Biventricular ICD (implantable cardioverter-defibrillator) in place documented in this encounter Care Teams Immigration Coordinator Relationship Specialty Start Date End Date Lolly Oliveira MD [address] [place] [address] PCP - General 07/17/13 documented as of this encounter
--- OUTSIDE RECORDS SUMMARY | 2024-01-07 11:17 | XMS_ITS | Encounter Summary ---
Author Organization [facility] [place] [address] Care Team Providers Care Executive Manager Name Role Phone Lolly Oliveira MD Primary Care Provider [phone] Encounter Details Date Type Department Care Team (Latest Contact Info) Description 07/26/2013 9:44 AM EDT - 07/26/2013 11:59 PM EDT Hospital [place] [address] CLINIC, Lolly So MD [address] [place], [place] [id number] Mammographic microcalcification Discharge Disposition: Home Social History [...] AM EST Hospital Encounter Non-[place] [phone] Arrived documented as of this encounter Procedures [...] are present on specimen digital X-ray. A [employer]-Stereo 13 Cylinder marker clip was placed. Cranio-caudal [...] mLs documented in this encounter Care Teams Executive Manager Relationship Specialty Start Date End Date Lolly Oliveira MD [address] [place] [address] PCP - General 07/17/13 documented as of this encounter
--- OUTSIDE RECORDS SUMMARY | 2024-01-07 11:17 | XMS_ITS | Encounter Summary ---
Author Organization [facility] [place] [address] Care Team Providers Care Home Planning Consultant Salesperson Name Role Phone Lolly Oliveira MD Primary Care Provider [phone] Encounter Details Date Type Department Care Team (Latest Contact Info) Description 07/20/2013 9:26 AM EDT - 07/20/2013 11:59 PM EDT Hospital [place] [address] CLINIC, Lolly So MD [address] [place], [place] [id number] Mammographic microcalcification Discharge Disposition: Home Social History [...] AM EST Hospital Encounter Non-Invasive [place] [address] Arrived documented as of this encounter Procedures [...] does not layer and, therefore, are not warehouse representative of milk of calcium. Again, these [...] does not layer and, therefore, are not warehouse representative of milk of calcium. Again, these have an amorphous andpunctate appearance and remain indeterminate. Stereotactic guided biopsy isrecommended. Alia Fraire MD IMG MAMMO ORDERABLES documented in this encounter Visit Diagnoses Diagnosis Mammographic microcalcification documented in this encounter Care Teams Home Planning Consultant Salesperson Relationship Specialty Start Date End Date Lolly Oliveira MD [address] [place] [address] PCP - General 07/17/13 documented as of this encounter
--- OUTSIDE RECORDS SUMMARY | 2024-01-07 11:17 | XMS_ITS | Encounter Summary ---
Author Organization [facility] [place] [address] Care Team Providers Care Financial Planning Analyst Name Role Phone Lolly Oliveira MD Primary Care Provider [phone] Reason for Referral * Consultation (Routine) - Closed Specialty Diagnoses / Procedures Referred By Contact Referred To Contact Electrophysiology / Cardiology Diagnoses Left bundle branch block Cardiomyopathy, unspecified type AT MINIMUM PT NEEDS CONSIDERATION FOR DEFIBRILLATOR, ALSO CANDIDATE FOR RESYNCHRONIZATION THERAPY HER QRS IS >0.16 Lolly Oliveira MD [address] [place] [address] [facility] Card[facility] [address] [place] [phone] Referral ID Status Reason Start Date Expiration Date V isits Requested Visits Authorized [id number] Closed Consult, Test & Treat PCP Updated and/or Approved 04/30/2022 04/30/2023 6 6 Encounter Details Date Type Department Care Team (Latest Contact Info) Description 04/30/2022 Transcribe Orders eDH Incoming Referrals [phone] Lolly Oliveira MD [address] [place], [place] [id number] Left bundle branch block; Cardiomyopathy, unspecified type [...] AM EST Hospital Encounter Non-Invasive [place] [address] Arrived Scheduled Referrals Name Type Priority Associated Diagnoses Orde r Schedule Referral to Cardiology Outpatient Referral Routine Left bundle branch block Cardiomyopathy, Unspecified Type Ordered: 04/30/2022 documented as of this encounter Visit Diagnoses Diagnosis Left bundle branch block Other left bundle branch block Cardiomyopathy, unspecified type documented in this encounter Care Teams Financial Planning Analyst Relationship Specialty Start Date End Date Lolly Oliveira MD [address] [place] [address] PCP - General 07/17/13 documented as of this encounter
--- OUTSIDE RECORDS SUMMARY | 2024-01-07 11:17 | XMS_ITS | Encounter Summary ---
[place] [address] Care Team Providers Care Vice President Of Engineering Name Role Phone Lolly Oliveira MD Primary Care Provider [phone] Encounter Details Date Type Department Care Team [...] AM EST Hospital Encounter Non-Invasive [place] [address] Arrived documented as of this encounter Visit Diagnoses Not on filedocumented in this encounter Care Teams Vice President Of Engineering Relationship Specialty Start Date End Date Lolly Oliveira MD [address] [place] [address] PCP - General 07/17/13 documented as of this encounter
--- OUTSIDE RECORDS SUMMARY | 2024-01-07 11:17 | XMS_ITS | Encounter Summary ---
Author Organization [facility] [place] [address] Care Team Providers Care Subsea Engineer Name Role Phone Lolly Oliveira MD Primary Care Provider [phone] Reason for Visit * Auth/Cert (Routine) Specialty Diagnoses / Procedures Referred By Contac t Referred To Contact Diagnoses Left bundle-branch block, unspecified Other cardiomyopathies Left bundle branch block [I44.7]Nonischemic cardiomyopathy [I42.8] Procedures PRG CATH PLMT LEFT HEART CATH & ARTS W/INJ & ANGIO IMG S&I ELECTROPHYSIOLOGY PROCEDURE Lalit Mcmahon MD [facility] [address] [facility] Referral ID Status Reason Start Date Expiration Date Visits Re quested Visits Authorized [id number] 1 1 Encounter Details Date Type Department Care Team (Late st Contact Info) Description 07/23/2022 1:00 PM EDT - 07/23/2022 5:30 PM EDT Surgery [place]rophys[place] [address] Lalit Mcmahon MD [facility] [address] ELECTROPHYSIOLOGY PROCEDURE Social History Tobacco Use Types Packs/Day Years Used Date Smoking Tobacco: Never Tobacco Cessation:Counseling Given: Not Answered Alcohol Use Standard Drinks/Week Comments Not Currently 0 (1 standard drink = 0.6 oz pur e alcohol) [facility] Inpatient Questions Answer Date Recorded Does [...] Cardiac Electrophysiology Discharge Summary Patient Name: Luna Mtot Patient Age: 71 y.o. Language: Croatian Race: White Ethnicity: Not nor Admit date: 07/23/2022 Discharge date and time: 07/24/22 Attending Physician: Lalit Mcmahon MD Discharge Physician: Lalit Mcmahon MD Follow-up Recommendations for Providers: - s/p GARLAND MACHINE OPERATOR-D implant - post implant QRS [...] ??? Solar lentigo Operations/Major Procedures: 07/23/22: [facility] GARLAND MACHINE OPERATOR-D implant History of Presentation: 71 y.o. female with a history of HFrEF, LBBB, QRS >150, NYHA II who is POD#1 of GARLAND MACHINE OPERATOR-D implant ([employer]). Hospital Course: Elective admission for GARLAND MACHINE OPERATOR-D implant Admitted post-implant for pain management, [...] (heart failure with reduced ejection fraction) [I50.20] GARLAND MACHINE OPERATOR-D implant Admission Condition: good Indication for [...] g Refills: 3 fluticasone propionate 50 mcg/actuation Donnelly, Suspension Commonly known as: Flonase 1 spray [...] incision. Make sure to use a clothing cutter (such as a towel) in between the [...] F. The office scheduling phone number is [phone]. ARM MOVEMENT RESTRICTIONS POST-IMPLANT - Do not [...] please call the Cardiac ElectrophysiologyTriage Nurse at [phone], option 3. General Instructions None Discharge References/Attachments [...] incision. Make sure to use a clothing cutter (such as a towel) in between the [...] F. The office scheduling phone number is [phone]. ARM MOVEMENT RESTRICTIONS POST-IMPLANT - Do not [...] please call the Cardiac ElectrophysiologyTriage Nurse at [phone], option 3. documented in this encounter Medications [...] with spacer fluticasone propionate (Flonase) 50 mcg/actuation Donnelly, Suspension 1 spray by Each Nare route [...] Cardiac Electrophysiology Post-Implant Device Interrogation Luna Mott [id number] 07/24/2022 History: Luna Mott is a 71 y.o. female with a history of HFrEF, LBBB, QRS >150, NYHA II who is POD#1 of GARLAND MACHINE OPERATOR-D implant ([employer]). Overall feels well this morning. Ready [...] WOB Neuro- A&Ox3 Device Interrogation: Data ?? Occupational Therapy Aides Teacher Model # Serial # Generator [employer] [id number] [id number] Atrial Lead [employer] 7841 [id number] RV Lead [employer] 0672 174981 LV Lead [employer] 4674 235721 ?? Diagnostics Pacing Mode: DDD 60-130 Underlying Rhythm: [place] Atrial Episodes: None Ventricular Episodes: None FINAL PROGRAMMING: Pacing: Mode Lower rate (ppm) Upper rate (ppm) ?? DDD 60 130 VF: Rate (bpm) #Antitachycardia pacing First shock energy (J) ?? 200 Quick convert 41 VT: 170 Monitor only Monitor only ? Battery and Leads Impedances (ohms) Sensing (mV) Thresholds HV RA RV LV RA RV LV RA RV LV 73 [phone] (LVa) 7.7 13.1 >25 0.4V @ 0.4 ms 0.4V @ 0.4 ms 0.5 V @ 1.0 ms POD#1 CXR: All leads in nominal positioning Impression: 71 y.o. female who is s/p GARLAND MACHINE OPERATOR-D implant for LBBB, NYHA II, HFrEF. [...] [facility]) Fadi Nunez MD 07/24/2022 Pager: [phone] I met with the patient today and [...] agreement. ? Dr. Lalit Mcmahon, electrophysiology attending ([id number]) * Zaria Wright RN - 07/23/2022 8:28 [...] HF, QRS > 150 ms presents for GARLAND MACHINE OPERATOR-D placement. ROS: Denies recent fevers or [...] 0.9) flush 5 mL 5 mL Intravenous [id number] ramos MD ??? sodium chloride 0.9 % [...] HF, QRS > 150 ms presents for GARLAND MACHINE OPERATOR-D placement. Backup would be LBBAP lead. Antibiotics: cefazolin Rationales for, intended benefits and potential risk of planned procedures reviewed. The patient indicated understanding and agreement with the plan. Informed consent signed. Procedure checklist completed. Fadi Nunez MD Cardiac Electrophysiology Fellow [facility] Pager [phone] 07/23/2022 I met with the patient today [...] agreement. ? Dr. Lalit Mcmahon, electrophysiology attending ([id number]) documented in this encounter Miscellaneous Notes * Brief Op Note - Lalit Mcmahon MD - 07/23/2022 4:04 PM EDT Brief Operative Note Patient Name: Luna Mott : [id number] MR#: [id number] Case Date: 07/23/2022 Surgeon: Surgeon(s) and Role: [...] AM EST Hospital Encounter Non-Invasive [place] [address] Arrived Scheduled Orders Name Type Priority Associated Diagnoses Orde r Schedule EKG 12 Lead ECG Routine Cardiac resynchronization therapy defibrillator (GARLAND MACHINE OPERATOR-D) in place One Time for 1 [...] (Bezet) 522 ms MUSE SYSTEM Calculated R Sunray 78 degrees MUSE SYSTEM Calculated T Sunray -71 degrees MUSE SYSTEM INTERPRETATION AV dual-paced [...] signed by: Kwame Vargas MD, [facility] ([phone]), at 07/24/2022 6:43 AM Narrative 07/24/2022 6:43 [...] signed by: Kwame Vargas MD, [facility]([phone]), at 07/24/2022 6:43 AM Lalit Mcmahon MD IMG DX ORDERABLES * ELECTROPHYSIOLOGY PROCEDURE (07/23/2022 1:11 PM EDT) Anatomical Region Laterality Modality Other Narrative 07/23/2022 4:24 PM EDT Table formatting from the original result was not included. BIVENTRICULAR ICD IMPLANTATION Tour Agent: Lalit Mcmahon MD Fellow: Fadi Nunez MD [...] lateral branch of the CS in the MALAYSIAN view. This branch was cannulated with a [...] the entire procedure. LEAD AND GENERATOR DATA: Occupational Therapy Aides Teacher Model # Serial # Generator [employer] [id number] Atrial Lead [employer] 7841 [id number] RV Lead [employer] 0672 819740 LV Lead [employer] 4674 125541 PACE/SENSE DATA: Sensed wave (mV) Threshold (V) [...] (cGycm2) 300 CONCLUSIONS: Successful implantation of a [employer] biventricular ICD for primary prevention and treatment of symptoms related to congestive heart failure. Follow up in EP clinic in 1-2 months. Procedures performed: new ICD system ( cpt 68740-K6); implant LV lead at time of ICD insertion (cpt 92539) I have read, edited and approve of this report: Lalit Mcmahon MD [facility] Cardiac Electrophysiology 07/23/2022 4:22 PM Procedure Note Lalit Mcmahon MD - 07/23/2022 BIVENTRICULAR ICD IMPLANTATION Tour Agent: Lalit Mcmahon MD Fellow: Fadi Nunez MD [...] appropriate lateralbranch of the CS in the MALAYSIAN view. This branch was cannulated with a [...] in the entireprocedure. LEAD AND GENERATOR DATA: Occupational Therapy Aides Teacher Model # Serial # Generator [employer] [id number] Atrial Lead [employer] 7841 [id number] RV Lead [employer] 0672 524705 LV Lead [employer] 4674 454247 PACE/SENSE DATA: Sensed wave (mV) Threshold (V) [...] (cGycm2) 300 CONCLUSIONS: Successful implantation of a [employer] biventricular ICD forprimary prevention and treatment of symptoms related to congestive heartfailure. Follow up in EP clinic in 1-2 months. Procedures performed: new ICD system ( cpt 06568-B5); implant LV lead attime of ICD insertion (cpt 73855) I have read, edited and approve of this report: Lalit Mcmahon MD S Cardiac Electrophysiology 07/23/2022 4:22 PM Lalit Mcmahon MD EP PROCEDURE ORDERAB LES * POCT Glucose (07/23/2022 12:54 PM EDT) [facility] Signature Glucose, POC 83 65 - 199 mg/dL [facility] Comment: Supplemental ranges: <140 mg/dL before meals <180 mg/dL all other times of the day Blood 07/23/2022 12:5 4 PM EDT 07/23/2022 12:54 PM EDT Lalit Mcmahon MD POINT OF CARE TEST O RDERABLES Performing Organization Address City/[facility]/ZIP Co de Phone Number [facility] [place] [address] * EKG 12 Lead (07/23/2022 12:33 PM EDT) Ventricular rate 72 BPM MUSE SYSTEM Atrial Rate 72 BPM MUSE SYSTEM P-R Interval 158 ms MUSE SYSTEM QRS Duration 176 ms MUSE SYSTEM Q-T Interval 458 ms MUSE SYSTEM QTC Calculated (Bezet) 501 ms MUSE SYSTEM Calculated P Sunray 34 degrees MUSE SYSTEM Calculated R Sunray 12 degrees MUSE SYSTEM Calculated T Sunray -173 degrees MUSE SYSTEM INTERPRETATION Normal sinus rhythm Left bundle branch block Abnormal ECG No previous ECGs available Confirmed by MD Salome, Lalit ([id number]) on 07/23/2022 1:19:03 PM MUSE SYSTEM 07/23/2022 12:3 3 PM EDT 07/23/2022 1:19 PM EDT Lalit Mcmahon MD ECG ORDERABLES Performing Organization Address [facility] [place]/[facility]/ZIP Co de Phone Number MUSE SYSTEM * Differential, Automated (07/23/2022 11:55 AM EDT) Neutrophil % 62.6 % [facility] Neutrophil Absolute 4.14 1.70 - 6.10 x10(3)/[facility] LABORATORY Lymph % 27.0 % [facility] Lymphocytes Abs 1.8 0.9 - 3.2 x10(3)/[facility] LABORAT[facility] Monocyte % 7.3 % [facility] HOSP ITAL LABORATORY Monocyte Abs 0.5 0.3 - 0.9 x10(3)/[facility] LABORAT[facility] Eos % 2.3 % [facility] Eosinophils Abs 0.2 0.0 - 0.4 x10(3)/[facility] LABORAT[facility] Basophil % 0.6 % [facility] ITAL LABORATORY Baso Absolute 0.0 0.0 - 0.1 x10(3)/[facility] LABORAT[facility] Immature Gran % 0.20 % [facility] Comment: Immature granulocytes(IG's)percentage and absolute count will include metamyelocytes, myelocytes, and promyelocytes. Blood smears from CBCs yielding IG's will be scanned manually for concordance. If this scan disagrees with the automated IG or if promyelocytes are noted, a manual differential will be performed. Immature Gran Absolute 0.01 0.00 - 0.04 x10(3)/[facility] LAB[facility]AT[facility] Blood 07/23/2022 11:5 5 AM EDT 07/23/2022 12:07 PM EDT Narrative Resulting Agency Comment Spec In Lab Lalit Mcmahon MD HEMATOLOGY ORDERABLE S [facility] [place] [address] * Hemogram (07/23/2022 11:55 AM EDT) White Blood Cell 6.6 4.0 - 9.5 x10(3)/[facility] LAB[facility] Red Blood Cell 4.50 4.00 - 5.21 x10(6)/[facility] Hemoglobin 13.7 11.7 - 15.5 g/dL [facility] Hematocrit 42.5 35.7 - 45.8 % [facility] Mean Cell Volume 94.4 82.6 - 94.4 fL [facility] Mean Cell Hemoglobin 30.4 27.1 - 32.0 pg [facility] Mean Cell Hemoglobin Concentration 32.2 31.7 - 35.0 g/dL [facility] Platelet 193 145 - 357 x10(3)/[facility] LAB[facility]AT[facility] RDW Standard Deviation 45.5 37.0 - 46.0 fL [facility] RDW coefficient of variation 13.2 11.5 - 14.1 % [facility] Mean Platelet Volume 9.5 7.6 - 12.9 fL [facility] NRBC% auto 0.0 % [facility] ITAL LABORATORY NRBC Absolute 0.000 0.000 - 0.000 x10(3)/[facility] Blood 07/23/2022 11:5 5 AM EDT 07/23/2022 12:07 PM EDT Narrative Resulting Agency Comment Spec In Lab Lalit Mcmahon MD HEMATOLOGY ORDERABLE S [facility] [place] [address] * (ABNORMAL) BMP w/fasting Glucose (07/23/2022 11:55 [...] of Diabetes Mellitus, Position Statement from the [place] [employer]. ??Diabetes Care, Volume 33, Supplement [...] Mcmahon MD CHEMISTRY ORDERABLES Performing Organization Address [facility] [place]/[facility] Co de Phone Number [facility] [place] [address] * Prothrombin Time (07/23/2022 11:55 AM EDT) [...] MD HEMATOLOGY ORDERABLE S Performing Organization Address City/[facility] Co de Phone Number [facility] [place] [address] documented in this encounter Visit Diagnoses Diagnosis HFrEF (heart failure with reduced ejection fraction)- Primary Left bundle branch block Other left bundle branch block Nonischemic cardiomyopathy Other primary cardiomyopathies Cardiac resynchronization therapy defibrillator (GARLAND MACHINE OPERATOR-D) in place Left bundle branch block [...] Routine documented in this encounter Care Teams Subsea Engineer Relationship Specialty Start Date End Date Lolly Oliveira MD [address] [place] [address] PCP - General 07/17/13 documented as of this encounter
--- OUTSIDE RECORDS SUMMARY | 2024-01-07 11:17 | XMS_ITS | Encounter Summary ---
[place] [address] Care Team Providers Care Strip Machine Operator Name Role Phone Lolly Oliveira MD Primary Care Provider [phone] Encounter Details Date Type Department Care Team (Late st Contact Info) Description 04/09/2022 Refill Dermatology at [address] [address] Nora Meredith, SEAMARK ADVANCED OPERATOR MAINTAINER Social History Tobacco Use Types Packs/Day Years [...] [facility] Encounter Non-Invasive [place] [address] Arrived documented as of this encounter Visit Diagnoses Not on filedocumented in this encounter Care Teams Strip Machine Operator Relationship Specialty Start Date End Date Lolly Oliveira MD [address] [place] [address] PCP - General 07/17/13 documented as of this encounter
--- OUTSIDE RECORDS SUMMARY | 2024-01-07 11:17 | XMS_ITS | Encounter Summary ---
Author Organization [facility] [place] [address] Care Team Providers Care Hand Roller Engraver Name Role Phone Lolly Oliveira MD Primary Care Provider [phone] Encounter Details Date Type Department Care Team (Latest Contact Info) Description 07/18/2013 Orders [place] [address] Alia Fraire MD [facility] [place] [address] Mammographic microcalcification (Primary Dx) Social History Tobacco [...] Hospital Encounter Non-[place] [address] Arrived documented as of this encounter Results [...] Alia Frarie MD IMG MAMMO ORDERABLES * MAMMO S/P [...] are present on specimen digital X-ray. A [employer]-Stereo 13 Cylinder marker clip was placed. [...] calcifications are present on specimendigital X-ray. A [employer]-Stereo 13 Cylinder marker clip was placed. [...] does not layer and, therefore, are not mechanical service representative of milk of calcium. Again, [...] does not layer and, therefore, are not mechanical service representative of milk of calcium. Again, these have an amorphous andpunctate appearance and remain indeterminate. Stereotactic guided biopsy isrecommended. Alia Fraire MD IMG MAMMO ORDERABLES documented in this encounter Visit Diagnoses Diagnosis Mammographic microcalcification- Primary Mammographic microcalcification Mammographic microcalcification Mammographic microcalcification Mammographic microcalcification documented in this encounter Care Teams Hand Roller Engraver Relationship Specialty Start Date End Date Lolly Oliveira MD [address] [place] [address] PCP - General 07/17/13 documented as of this encounter
--- OUTSIDE RECORDS SUMMARY | 2024-01-07 11:17 | XMS_ITS | Encounter Summary ---
Author Organization [facility] [place] [address] Care Team Providers Care German Teacher Name Role Phone Lolly Oliveira MD Primary Care Provider [phone] Encounter Details Date Type Department Care Team (Late st Contact Info) Description 07/26/2013 [place] [address] Eleno Christian MD [facility] [place] [address] Social History Tobacco Use Types Packs/Day Years [...] AM EST Hospital Encounter Non-[place]vasive [place] [address] Arrived documented as of this encounter Visit Diagnoses Not on filedocumented in this encounter Care Teams German Teacher Relationship Specialty Start Date End Date Lolly Oliveira MD [address] [place] [address] PCP - General 07/17/13 documented as of this encounter
--- OUTSIDE RECORDS SUMMARY | 2024-01-07 11:17 | XMS_ITS | Encounter Summary ---
Author Organization [facility] [place] [address] Care Team Providers Care District Manager In Training Name Role Phone Lolly Oliveira MD Primary Care Provider [phone] Encounter Details Date Type Department Care Team (Late st Contact Info) Description 10/09/2021 Telephone Dermatology at [address] [address] Nora Meredith LPN Social History [...] [facility] Hospital Encounter Non-Invasive [place] [address] Arrived documented as of this encounter Visit Diagnoses Not on filedocumented in this encounter Care Teams District Manager In Training Relationship Specialty Start Date End Date Lolly Oliveira MD [address] [place] [address] PCP - General 07/17/13 documented as of this encounter
--- OUTSIDE RECORDS SUMMARY | 2024-01-07 11:17 | XMS_ITS | Encounter Summary ---
Author Organization [facility] [place] [address] Care Team Providers Care Rn Clinical Name Role Phone Lolly Oliveira MD Primary Care Provider [phone] Encounter Details Date Type Department Care Team (Latest Contact Info) Description 07/26/2013 9:45 AM EDT - 07/26/2013 11:59 PM EDT Hospital En[place] [address] Mammographic microcalcification Social History Tobacco Use Types [...] AM EST Hospital Encounter Non-[place] [address] Arrived documented as of this encounter Procedures [...] microcalcification documented in this encounter Care Teams Rn Clinical Relationship Specialty Start Date End Date Lolly Oliveira MD [address] [place] [address] PCP - General 07/17/13 documented as of this encounter
--- OUTSIDE RECORDS SUMMARY | 2024-01-07 11:17 | XMS_ITS | Encounter Summary ---
[place] [address] Care Team Providers Care Interventional Nurse Name Role Phone Lolly Oliveira MD Primary Care Provider [phone] Encounter Details Date Type Department Care Team [...] Hospital Encounter Non-Invasive [place] [address] Arrived documented as of this encounter Visit Diagnoses Not on filedocumented in this encounter Care Teams Interventional Nurse Relationship Specialty Start Date End Date Lolly Oliveira MD [address] [place] [address] PCP - General 07/17/13 documented as of this encounter
--- OUTSIDE RECORDS SUMMARY | 2024-01-07 11:17 | XMS_ITS | Encounter Summary ---
Author Organization [facility] Address [facility] [place] [address] Care Team Providers Care Music Engraver Name Role Phone Lolly Oliveira MD Primary Care Provider [phone] Encounter Details Date Type Department Care Team (Late st Contact Info) Description 01/29/2023 Notes Only Cardiology at [address] [address] Merle Lin PA [facility] [place] [address] Social History Tobacco Use Types Packs/Day Years [...] pdf document Date of transmission: 01/29/2023 Device minor league baseball player: BSI Device type: UTILITY TENDER CARDING-D Presenting rhythm: /RVP/LVP AP 21% Right HOT BILLET SHEAR OPERATOR 100% Left HOT BILLET SHEAR OPERATOR: 100% Battery: 10.5 years [employer] Index rising in setting of increasing S3 intensity, increasing respiratory rate, increasing night heart rate, and increasing mean heart rate. MICKEY Villa 01/29/2023 9:06 AM documented in this encounter Plan of Treatment Upcoming Encounters Date Type Department Care Team (Late st Contact Info) Description 01/16/2024 10:00 AM EST Hospital Encounter Non-Invasive [place] [address] Arrived documented as of this encounter Visit Diagnoses Not on filedocumented in this encounter Care Teams Music Engraver Relationship Specialty Start Date End Date Lolly Oliveira MD [address] [place] [address] PCP - General 07/17/13 documented as of this encounter
--- OUTSIDE RECORDS SUMMARY | 2024-01-07 11:17 | XMS_ITS | Encounter Summary ---
Author Organization [facility] [place] [address] Care Team Providers Care Legal Administrative Assistant Name Role Phone Lolly Oliveira MD Primary Care Provider [phone] Encounter Details Date Type Department Care Team (Late st Contact Info) Description 03/17/2023 Telephone Cardiology at [address] [phone] Saranya Ma Social History Tobacco Use Types [...] 9:43 AM EST Echo order faxed to [facility] at [phone]. No Prior auth needed. Ref #:[id number]. Saranya Ma Sr. Clinical Procedure [place]/Technical Sales Advisor documented in this encounter Plan of Treatment Upcoming Encounters Date Type Department Care Team (Late st Contact Info) Description 01/16/2024 10:00 AM [facility] Hospital Encounter Non-[place] [address] Arrived documented as of this encounter Visit Diagnoses Not on filedocumented in this encounter Care Teams Legal Administrative Assistant Relationship Specialty Start Date End Date Lolly Oliveira MD [address] [place] [address] PCP - General 07/17/13 documented as of this encounter
--- OUTSIDE RECORDS SUMMARY | 2024-01-07 11:17 | XMS_ITS | Encounter Summary ---
Author Organization [facility] [place] [address] Care Team Providers Care Comic Artist Name Role Phone Lolly Oliveira MD Primary Care Provider [phone] Encounter Details Date Type Department Care Team (Late st Contact Info) Description 11/16/2022 Telephone Cardiology at [address] [phone] Luna Rousseau, RN Social History Tobacco Use [...] BP today was 118/57 at [facility] at [facility]. Pt is going twice a week to [...] [facility] En[facility] Non-Invasive [place] [address] Arrived documented as of this encounter Visit Diagnoses Not on filedocumented in this encounter Care Teams Comic Artist Relationship Specialty Start Date End Date Lolly Oliveira MD [address] [place] [address] PCP - General 07/17/13 documented as of this encounter
--- OUTSIDE RECORDS SUMMARY | 2024-01-07 11:17 | XMS_ITS | Encounter Summary ---
[place] [address] Care Team Providers Care Hardware Engineer Name Role Phone Lolly Oliveira MD Primary Care Provider Encounter Details Date Type Department Care Team (Late st Contact Info) Description 07/17/2013 [place] [address] Lolly Oliveira MD [address] [place], [place] [id number] Social History Tobacco Use Types Packs/Day Years [...] EST Hospital Encounter Non-[place] [address] Arrived documented as of this encounter Procedures [...] MAMMOGRAMS (PERFORMED ON 07/06/13 AND 07/14/13) [facility] DATED 07/17/13: DIAGNOSTIC IMAGING SUMMARY: RIGHT BREAST [...] filedocumented in this encounter Care Teams Hardware Engineer Relationship Specialty Start Date End Date Lolly Oliveira MD [address] [place] [address] PCP - General 07/17/13 documented as of this encounter
--- OUTSIDE RECORDS SUMMARY | 2024-01-07 11:18 | XMS_ITS | Encounter Summary ---
Author Organization [facility] [place] [address] Care Team Providers Care Edging Machine Feeder Name Role Phone Unavailable Primary Care Provider Unavailabl e Encounter Details Date Type Department Care Team (Late st Contact Info) Description 07/14/2013 [place] [phone] Eleno Christian MD [facility] [place] [address] Social History Tobacco Use Types Packs/Day Years [...] AM EST Hospital Encounter Non-Invasive [place] [address] Arrived documented as of this encounter Visit Diagnoses Not on filedocumented in this encounter
--- OUTSIDE RECORDS SUMMARY | 2024-01-07 11:18 | XMS_ITS | Encounter Summary ---
Author Organization [facility] [place] [address] Care Team Providers Care Log Grader Name Role Phone Unavailable Primary Care Provider Unavailabl e Encounter Details Date Type Department Care Team (Late st Contact Info) Description 07/04/2012 Orders [place] [phone] Eleno Christian MD [facility] [place] [address] Social History Tobacco Use Types Packs/Day Years [...] Hospital Encounter Non[place] [address] Arrived documented as of this encounter Procedures [...] is a Non-reportable exam Eleno Christian MD [facility] FILM LIBRARY ORD ERABLES documented in this encounter Visit Diagnoses Not on filedocumented in this encounter
--- OUTSIDE RECORDS SUMMARY | 2024-01-07 11:18 | XMS_ITS | Encounter Summary ---
Author Organization [place] [address] Care Team Providers Care Hospital Admitting Clerk Name Role Phone Lolly Oliveira MD Primary Care Provider [phone] Encounter Details Date Type Department Care Team (Late st Contact Info) Description 06/29/2011 [place] [phone] Eleno Christian MD [facility] [place] [address] Social History Tobacco Use Types Packs/Day Years [...] AM EST Hospital Encounter Non-[place] [address] Arrived documented as of this encounter Procedures [...] Non-reportable exam Eleno Christian MD [facility] [place] [facility] ORD ERABLES documented in this encounter Visit Diagnoses Not on filedocumented in this encounter Care Teams Hospital Admitting Clerk Relationship Specialty Start Date End Date Lolly Oliveira MD [address] [place] [address] PCP - General 07/17/13 documented as of this encounter
--- OUTSIDE RECORDS SUMMARY | 2024-01-12 10:57 | XMS_ITS | Data Portability ---
Author Organization [place] - [facility] Address [address] [place] [address] Care Team Providers Care Oceanography Professor Name Role Phone [facility] EYE [facility] OFFICE Optometris t ZAMZAM BOSS Assistant Controller JAYCOB KHAN Orthopedic Surgeon [phone] ROXANA KELLEY Carding Doubler FLOWER RAMSEY Dentist Assessment Encounter Date Assessment [...] copy of PPP at conclusion of visit. [email or web address] Not available 04/20/2023 07:44:20 Plan of Treatment Reminders Order Date Submit Date Provider Last Modified By Organization Details Last Modified Time Details Appointments Medicare Annual Wellness 40 2024 07:30A M LOLLY CORTEZ Not available Not available Not available Lab None recorded. Referral podiatris t referral 2023 024 [facility], [address] [place] [address] Dr, [place], [address], 09/24/2023 13:45:43 physical therapist referral 2023 024 Chinedu Amato PT, [address] , [place], [address], 10/18/2023 12:01:58 Procedures None recorded. Surgeries None recorded. Imaging MAMMO, screening , bilateral [address] [facility] (Radiology), [address] [place] [address] , [place], [address], 11/26/2023 15:15:54 Medication Orders Jardiance 10 mg tablet 2023 024 [facility], [address] [place] [address], [address], 05/24/2023 18:32:26 lisinopri l 20 mg tablet 2023 024 [facility], [address] [place] [address], [address], 05/24/2023 18:32:26 meclizine 25 mg tablet 2023 024 [facility], [address] [place] [address], [address], 09/01/2023 13:22:14 Patient TargetsNo targets recorded. Patient Instructions Encounter Date Encounter Id Patient Instructions Last Modified By Organization Details Last Modified Time 05/21/2023 [id number] Discussed and explained advance directives such as standard forms to the {{patient caregiv er patient and caregiver}}. Face to face discussion lasted for a duration of ___ minutes. [email or web address] Not available 04/20/2023 07:44:20 09/01/2023 [id number] 1. The earwax from your ears were [...] Not available 09/01/2023 13:23:33 Reason for Referral Rehab Technician Referral for Onyc homycosis onychomycosis, calluses Referring Physician: Lolly Cortez, Family Medicine, Encounter Date: 05/21/2023 Physical Therapist Referral for Vertigo Referring Physician: Jessica Wallis, [facility], Encounter Date: 09/01/2023 Results Created [...] pleme nt 1):S1 3-s28 . Not Available [address] [place], [address] 11/18/2023 09:59:24 11/18/19 24 11/18/2023 COMPR EHENS NEEL METAB OLIC PANEL calcium 9.0 mg/dL 8.5-10 .1 normal Not Available [address] [place], [address] 11/18/2023 10:01:26 11/18/19 24 11/18/2023 COMPR EHENS NEEL METAB OLIC PANEL glucose 105 mg/dL 74-106 normal Not Available [facility] [address] [place], [address] 11/18/2023 10:01:11/18/19 24 11/18/2023 COMPR EHENS NEEL METAB OLIC PANEL BUN 27 mg/dL 7-18 high Not Available [facility] [address] [place], [address] 11/18/2023 10:01:11/18/19 24 11/18/2023 COMPR EHENS NEEL METAB OLIC PANEL creatinine 1.3 mg/dL 0.55-1 .02 high Not Available [address] [place], [address] 11/18/2023 10:01:11/18/1911/18/2023 COMPR EHENS NEEL METAB OLIC [...] young er-ag ed adult s. Not Available [address] [place], [address] 11/18/2023 10:01:11/18/19 24 11/18/2023 COMPR EHENS NEEL METAB OLIC PANEL total protein 7.5 g/dL 6.4-8. 2 normal Not Available [address] [place], [address] 11/18/2023 10:01:11/18/19 24 11/18/2023 COMPR EHENS NEEL METAB OLIC PANEL albumin 3.6 g/dL 3.4-5. 0 normal Not Available [address] [place], [address] 11/18/2023 10:01:11/18/19 24 11/18/2023 COMPR EHENS NEEL METAB OLIC PANEL bilirubin, total 0.59 mg/dL 0.2-1. 0 normal Not Available [address] [place], [address] 11/18/2023 10:01:11/18/19 24 11/18/2023 COMPR EHENS NEEL METAB OLIC PANEL alk phos 135 U/L 46-116 high Not Available [address] [place], [address] 11/18/2023 10:01:11/18/19 24 11/18/2023 COMPR EHENS NEEL METAB OLIC PANEL sodium 139 mmol/ L 136-14 5 normal Not Available [address] [place], [address] 11/18/2023 10:01:11/18/19 24 11/18/2023 COMPR EHENS NEEL METAB OLIC PANEL potassium 4.2 mmol/ L 3.5-5. 1 normal Not Available [address] [place], [address] 11/18/2023 10:01:26 11/18/19 24 11/18/2023 COMPR EHENS NEEL METAB OLIC PANEL chloride 103 mmol/ L 98-107 normal Not Available [address] [place], [address] 11/18/2023 10:01:11/18/19 24 11/18/2023 COMPR EHENS NEEL METAB OLIC PANEL CO2 29.0 mmol/ L 21.0-3 2.0 normal Not Available [address] [place], [address] 11/18/2023 10:01:26 11/18/19 24 11/18/2023 COMPR EHENS NEEL METAB OLIC PANEL anion gap 7.0 mmol/ L 3-11 normal Not Available [address] [place], [address] 11/18/2023 10:01:26 11/18/19 24 11/18/2023 COMPR EHENS NEEL METAB OLIC PANEL AST 29 U/L 15-37 normal Not Available [facility] [address] [place], [address] 11/18/2023 10:01:26 11/18/19 24 11/18/2023 COMPR EHENS NEEL METAB OLIC PANEL ALT 24 U/L 14-59 normal Not Available [facility] [address] [place], [address] 11/18/2023 10:01:26 11/18/19 24 11/18/2023 LIPID 2 cholesterol 157 mg/dL <200 Not Available [facility] [address] [place], [address] 11/18/2023 10:01:27 11/18/19 24 11/18/2023 LIPID 2 triglyceride 79 mg/dL <150 Not Available [address] [place], [address] 11/18/2023 10:01:27 11/18/19 24 11/18/2023 LIPID 2 HDL cholesterol 78 mg/dL 40-60 Not Available [facility] [address] [place], [address] 11/18/2023 10:01:27 11/18/19 24 11/18/2023 LIPID 2 [...] 18 years or older . Not Available [address] [place], [address] 11/18/2023 10:01:27 05/03/19 24 05/03/2023 ultra sound imagi ng sanjay t Kaiser t Name: Naomi Mott Unit #: [id number] Loc: DI Andrewi ng Provid er: Lalit Mcmahon M.D. Accoun t #: [id number] Status : REG CLI Primar [...] Amado RDCS (AE) Indica tions: Nonisc hemic [employer] ME[employer]ANIC, defibr illato r in place Conclu pura [...] error, please notify us immedi rebeccaly at [phone] and return the origin al report to us at the addres s above. Thank- you. [facility] [address], [place], [address] 05/03/2023 18:12:07 05/13/19 24 05/13/2023 elect eric robertson am EKG PATIAUSTIN T NAME: Naomi Mott yolanda E UNIT #: [id number] ORDERI [facility] ER: Lalit Mcmahon M.D. ACCOUN T #: [id number] PRIMAR Y CARE PROVID ER: JUSTYN Suresh MD, LOLLY DATE/T DONNA OF SE RVICE: 1252 : 1950 PERFOR JOÃO LOCATI ON: DI.CAR D ------ ------ --- APPROV ED REPORT ------ ------ -- Exam: Restin g ECG Reason for Exam: LBBB, CMP Patien t Locati on: O HR:73 bpm ECG Measur ements Heart Rate 73 AXIS NV 27 P 111 QRSd 115 QRS 80 [...] - E-Sign Date: E-Sign Time: 08 abraley [facility] [address] [place], [address] 09/13/2023 15:45:54 06/28/19 24 01/12/2023 x-ray imagi ng repor t Gelyaustin t Name: Naomi Mott Unit #: [id number] Loc: ALIZA Orderi ng Provid er: Karan Freire M.D. Accoun t #: [id number] Status : [facility] er: Janice Pérez M.D. Date of [...] l imagin g was perfor med. COMPAR JCAQUES: No exams were availa ble for compar [...] Hurst M.D. 1401 140 Transc ribed By: Airs MENDOZA,Marcia nyasia 1401 This is privil eged, [...] the addres s above. Thank- you. rod [facility] [address], [place], [address] 06/29/2023 07:24:17 11/22/19 24 04/16/2022 bone densi [...] Patien t Name: Naomi Mott Unit #: [id number] Loc: DI Orderi ng Provid er: Janice Pérez M.D. Accoun t #: [id number] Status : REG CLI Primar y Care [...] the addres s above. Thank- you. rod [facility] [address], [place], [address] 12/09/2023 05:58:02 Result Notes None recorded. Problems Name Problem SNOMED Code Status Onset Date Resolution Date Notes Provider Name and Address Organization Details Recorded Time Asthma 720027854 Active 200204/14/19 22 - Comments only - oLlly Cortez MD - Not too much of an issue recently . She does keep albutero l inhaler availabl e if needed. Problem Code: 493.90; Problem Code Type: ICD-9; Not Available [facility] 3 04:01:51 Atypical glandula r cells on cervical Papanico laou smear 558846300 Active 2007 Problem Code: 795.00; Problem Code Type: ICD-9; Not Available [facility] 3 04:01:51 Dizzines s and giddines s 610607230 Active 201404/14/19 22 - Comments only - Lolly Cortez MD - , Intermit tent. She has learned to deal with it using the Jd's maneuver . She will call if any signific ant worsenin g. 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 Problem Code: I10; Problem Code Type: ICD-10; Not Available [facility] 3 04:01:52 Adult health examinat ion Active 201504/16/19 23 - Comments only - Lolly Cortez MD - UTD with mammo, has a DEXA schedule d ( dx of osteopor osis), will check an A1c. Problem Code: Z00.00; Problem Code Type: ICD-10; Not Available [facility] 3 04:01:52 Disorder of skin and/or subcutan eous tissue 53401702 Active 201509/17/19 16 - Comments only - Lolly Cortez MD - the lesions on the buttucks appear to have been possible boils that are now healing vs atopic rxn resolvin g. At this point no tx needed. If worsenin g/recurr ing she will call. I don't believe these are related to rubbing while walking Problem Code: L98.9; Problem Code Type: ICD-10; Not Available [facility] 3 04:01:52 Pain in right hip joint 66958209078 9102 Completed 201512/02/2022 Problem Code: M25.551; Problem Code Type: ICD-10; Not Available [facility] 3 04:01:52 Onychomy cosis due to dermatop hyte 347546041 Active 201609/23/19 17 - Comments only - Lolly Cortez MD - she is going to contact podiatry to find out if they have any other topical txs that might work. She is not interest ed in systemic tx Problem Code: B35.1; Problem Code Type: ICD-10; Not Available [facility] 3 04:01:52 Hearing loss of right ear 302662270 Completed 201712/10/2017 11/27/19 18 - Comments only - Naseem Gil PA-C - Cerumino sis treated in-offic e today. If hearing fails to be fully restored over the course of the weekend, will consider for ENT refer for formal audiolog y assessme nt. Problem Code: H91.91; Problem Code Type: ICD-10; Not Available [facility] 3 04:01:52 Abnormal weight gain 083627433 Active 2018 Problem Code: R63.5; Problem Code Type: ICD-10; Not Available [facility] 3 04:01:53 Disorder of hip joint 249463040 Active 201801/12/20 22 - Comments only - Lolly Cortez MD - ,rt. For which she would like a total hip replacem ent. 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 She is trying to continue being as mobile as she can comforta silva. Problem Code: M12.859; Problem Code Type: ICD-10; Not Available [facility] 3 04:01:53 Acute vaginiti s 45854923 Completed 201801/04/2019 12/22/19 19 - Comments only - Naseem Gil PA-C - Will await resutls of today's collecte d VPS to determin e indicati on for further treatmen t. Problem Code: N76.0; Problem Code Type: ICD-10; Not Available [facility] 3 04:01:53 Intertri go 37021723 Completed 201801/04/2019 12/22/19 19 - Comments only - Naseem Gil PA-C - Patient encourag ed to keep skin folds as clean and dry as possible to avoid reactiva tion (suggest ed instructor hairspring after bathing) . Addition ally, could consider to use OTC DESITIN for acute skin healing. Problem Code: L30.4; Problem Code Type: ICD-10; Not Available [facility] 3 04:01:53 Pre-surg cecilia evaluati on Completed 201801/23/2019 01/10/20 19 - Comments only - Naseem Gil PA-C - Today's EKG shows stable LBBB (compare d to study 10/19/14) with NSR at 69bpm. Patient to f/u for pre-oper ative laborato ry testing and anesthes ia consult as schedule d 01/17/19 . Problem Code: Z01.818; Problem Code Type: ICD-10; Not Available [facility] 3 04:01:53 Hip joint prosthes is present 143017981 Active 2018 Problem Code: Z96.642; Problem Code Type: ICD-10; Not Available [facility] 3 04:01:53 Dyspnea 866645472 Completed 201903/27/2019 03/13/19 20 - Comments only [...] R06.02; Problem Code Type: ICD-10; Not Available [facility] 3 04:01:54 Edema 467044707 Completed 201906/21/2019 06/07/19 20 - Comments only - Naseem Gil PA-C - Patient reassure d nothing concerni ng on today's PX to raise suspicio n for DVT. Suspect minor calf muscle strain. OK to continue to use compress ion stocking s for symtpoma tic relief and consider calf stretche s. F/U PRN. Problem Code: R60.9; Problem Code Type: ICD-10; Not Available [facility] 3 04:01:54 Headache 06714263 Active 2020 Problem Code: R51.9; Problem Code Type: ICD-10; Not Available [facility] 3 04:01:54 Guttate psoriasi s 36512365 Active 202004/16/19 23 - Comments only - Lolly Cortez MD - being followed by mika mercado ritesh under reasonab le control with the UV tx and prn clobetas ol cream Problem Code: L40.4; Problem Code Type: ICD-10; Not Available [facility] 3 04:01:54 Stool finding 416178771 Active 2021 Problem Code: R19.5; Problem Code Type: ICD-10; Not Available [facility] 3 04:01:54 Speciali zed medical examinat ion Active 2021 Problem Code: Z01.89; Problem Code Type: ICD-10; Not Available [facility] 3 04:01:54 Edema 754286313 Active 2021 Problem Code: R60.9; Problem Code Type: ICD-10; Not Available [facility] 3 04:01:55 Screenin g mammogra phy Active 2021 Problem Code: Z12.31; Problem Code Type: ICD-10; Not Available [facility] 3 04:01:55 Abnormal finding on evaluati on procedur e 999757977 Active 2021 Problem Code: R89.9; Problem Code Type: ICD-10; Not Available [facility] 3 04:01:55 Dyspnea 170402315 Active 2021 Problem Code: R06.02; Problem Code Type: ICD-10; Not Available [facility] 3 04:01:55 Cardiomy opathy 27038284 Active 202109/05/19 23 - Comments only - Lolly Cortez MD - Clinical ly remaingodfrey awad stable on the lisinopr il, furosemi de 20 mg daily, Jardianc e, Toprol, rosuvast atin, aspirin. ICD/pace maker in place. Followin g with cardiolo gy. She is walking/ exercisi ng regularl y. Problem Code: I42.9; Problem Code Type: ICD-10; Not Available [facility] 3 04:01:55 Heart failure 31283462 Active 2021 Problem Code: I50.9; Problem Code Type: ICD-10; Not Available [facility] 3 04:01:56 Family history of breast cancer 165924080 Active 2021 Problem Code: Z80.3; Problem Code Type: ICD-10; Not Available [facility] 3 04:01:56 Burn 028882349 Active 202101/12/20 22 - Comments only - Lolly Cortez MD - Healing slowly, no evidence of infectio n. If she has any further question s regardin g this she will let us know. Problem Code: T30.0; Problem Code Type: ICD-10; Not Available [facility] 3 04:01:56 Senile osteopor osis 73331925 Active 202101/12/20 22 - Comments only - Lolly Cortez MD - Due for a repeat DEXA scan. Ordered. She does take an over-the -counter vitamin D suppleme nt I believe. Problem Code: M81.0; Problem Code Type: ICD-10; Not Available [facility] 3 04:01:56 Hyperlip idemia 56361512 Active 202204/16/19 23 - Comments only - Lolly Cortez MD - will check LFTs, CPK, on rosuvast atin 5mg daily which has brought her lipids into goal range. Problem Code: E78.5; Problem Code Type: ICD-10; Not Available [facility] 3 04:01:56 Adjustme nt disorder 91253690 Active 2022 Problem Code: F43.20; Problem Code Type: ICD-10; Not Available [facility] 3 04:01:56 Dysuria 73684815 Active 2022 Problem Code: R30.9; Problem Code Type: ICD-10; Not Available [facility] 3 04:01:57 Itching of skin 727618681 Active 2022 Problem Code: L29.8; Problem Code Type: ICD-10; Not Available [facility] 3 04:01:57 Automati c implanta ble cardiac defibril lator in situ 670817694 Active 2022 Problem Code: Z95.810; Problem Code Type: ICD-10; Not Available [facility] 3 04:01:57 Glycosur ia 01703014 Active 202209/05/19 23 - Comments only - Lolly Coretz MD - , No prior diagnosi s of diabetes . She is developi ng diabetes that could be number perineal symptoms . 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 708486164 Active 202209/05/19 23 - Comments only - [...] N90.89; Problem Code Type: ICD-10; Not Available [facility] 3 04:01:57 Allergic contact dermatit is 240439906 Completed 202012/02/2022 Problem Code: L23.9; Problem Code Type: ICD-10; Not Available [facility] 3 04:02:02 Essentia l hyperten pura 03829866 Completed 200107/25/2015 Problem Code: 401.9; Problem Code Type: ICD-9; Not Available [facility] 3 04:02:03 Polyp of colon 15133389 Completed 201006/05/2021 Problem Code: K63.5; Problem Code Type: ICD-10; Not Available [facility] 3 04:02:03 History of vertigo 966741691 Completed 201012/02/2022 01/11/20 15 - Improved - Lolly Cortez MD - she will continue with Jd's manoever PRN and call if worsenin g/nothin g helping Not Available [facility] 3 04:02:04 Acute sinusiti s 32377118 Completed 201912/16/2020 Problem Code: J01.90; Problem Code Type: ICD-10; Not Available [facility] 3 04:02:05 Pain of right lower leg 69729874354 9108 Completed 202101/11/2022 Problem Code: M79.661; Problem Code Type: ICD-10; Not Available [facility] 3 04:02:06 Hyperlip idemia 42743122 Completed 200910/19/2017 Not Available [facility] 3 04:02:07 Dizzines s and giddines s 951632965 Completed 201408/14/2019 Problem Code: R42; Problem Code Type: ICD-10; Not Available [facility] 3 04:02:07 Hyperten sive disorder 92207933 Completed 201011/03/2018 Not Available [facility] 3 04:02:09 Diarrhea 22662521 Completed 201610/19/2017 Problem Code: R19.7; Problem Code Type: ICD-10; Not Available [facility] 3 04:02:10 Anemia 126748203 Completed 201901/11/2022 Problem Code: D64.9; Problem Code Type: ICD-10; Not Available [facility] 3 04:02:10 [place] - lesion 626045550 Active 2022 Problem Code: L84; Problem Code Type: ICD-10; Not Available [facility] 4 05:37:51 Foot callus 054910122 Active [address], [facility] [place], [address] , [facility]. 4 11:29:32 Onychomy cosis 000220690 Active [address], [place], [address] , [facility] 4 11:29:44 Vertigo 763405162 Active [address], [facility] [address] [place] [address] 4 13:20:57 Impacted cerumen of bilatera l ears 20186245485 86197 Active [address], [facility] [address] [place] [address] 4 13:21:03 Prediabe tish 873302245 Active [address], [facility] [address] [place] [address] 4 09:24:37 Notes:*Problem Name: Colonos copy 2005 - Hyperplastic Polyp *ICD-10 Codes: *Problem Status: inactive *Comments: *Note Date: 04/29/2010 *Problem Name: Rt Breast Bx 2013 - Adenosis *ICD-10 Codes: *Problem Status: active *Comments: *Note Date: 08/01/2013 Problem Notes Documentation Provider Name and Address Organization Details Recorded Time Cardiology Note : Cardiology Office Visit PATIENT NAME: Luna Mott UNIT #: [id number] ADMITTING PROVIDER: Zamzam Boss M.D. ACCOUNT #: [id number] PRIMARY CARE PROVIDER: LOLLY CORTEZ MD DATE [...] Year Total time on date of encounter, (tgbk-he-plkz and non nntt-uh-bqkf) (minutes): 19 Time was spent: reviewing prior [...] loose wt but t is hard. RH Diamond Sawer Required: No Is patient in pain?: No [...] ICD (implantable cardioverter-defibrillator ) in place (Acute) [facility] [place]/23[place]22 for SEWING INSPECTOR therapy [employer] Tubular adenoma (Acute 05/27/21) [...] I42.9 Cardiomyopathy type: unspecified cc: DIEGO MENDOZA [place] Dictated by: BERTRAND MENDOZA,ZAMZAM FLORES Dictated: 08/30/23 Time : 1043 Date: 08/30/23 1106 Date: Date: Transcribed Date: 08/30/23 Transcribed Time: 1042 By: RAMAN This is privileged, confidential information, intended only for the provider named. Any use or distribution by any person other than this provider is strictly prohibited. If you receive this rep ort in error, please notify us immediately at [phone] and return the original report to us at the address above. Thank you. BRENNA Vo - [facility]. 09/13/2023 15:45:17 Procedures Surgical History Date Name Laterality Status Provider Name and Address Organization Details Recorded Time 4 Cerumen Removal completed N[address], [place], [address], [place] [facility] 09/01/2023 13:52:38 total replacement of right hip joint completed Cornelia Lizarraga [facility] 03/31/2023 17:11:24 Imaging Results Imaging Date Name Status LastModified by Organization Details LastModified Time 05/03/2023 ultrasound imaging report completed [address] [place], [address] 05/03/2023 18:12:07 05/13/2023 electrocardiogram completed [email or web address] [place], [address] 09/13/2023 15:45:54 01/12/2023 x-ray imaging report completed [address] [place], [address] 06/29/2023 07:24:17 04/16/2022 bone density completed Information [...] 11/22/2023 06:42:56 12/08/2023 mammography imaging report completed [facility] [address] [place], [address] 12/09/2023 05:58:02 Procedure Notes None recorded. Medical Equipment None Reported. Allergies Allergen ID Allergen Name Allergen Category Reaction Reaction Severity Criticality Documentation Date Start Date Code Code System Note Provider Name and Address Organization Details Recorded Time 33292 sulfadiaz ine medicatio n tachycard ia mild Not available 01/15/20232001 15941 RxNorm Tachy cardi a Not Available [facility] [...] tablet TAKE ONE TABLET BY MOUTH EVERY other DAY 2023 active Not Available Not Available [...] release TAKE ONE TABLET BY MOUTH EVERY other DAY 2023 active Not Available Not Available [...] % 96 % 65 /min 38.7 kg/m2 98971.8 3 g 128 mm[Hg] 72 mm[Hg] Davey Allen MA [facility] 4 10:27:29 Date Recorded Body height Body mass index (BMI) Body weight Body temperature Respiratory rate Oxygen saturation Oxygen saturation in Arterial blood by Pulse oximetry Heart rate Systolic blood pressure Diastolic blood pressure Provider Name and Address Organization Details Last Updated DateTime 4 159.385 cm 38.7 kg/m2 01682.8 2 g 97.1 [degF] 17 /min 95 % 95 % 60 /min 139 mm[Hg] 69 mm[Hg] Vonda Fields RN [facility] 4 12:25:13 Date Recorded Body height Body mass index (BMI) Body weight Oxygen saturation Oxygen saturation in Arterial blood by Pulse oximetry Heart rate Respiratory rate Systolic blood pressure Diastolic blood pressure Provider Name and Address Organization Details Last Updated DateTime 4 159.385 cm 40.4 kg/m2 774166. 88 g 99 % 99 % 63 /min 18 /min 136 mm[Hg] 68 mm[Hg] Davey Allen MA [facility] [facility] 4 07:36:54 Social History Question Answer Notes LastModified by Organizat ion Details LastModified Time Tobacco Smoking Status Never Smoker Davey Allen MA [facility], [place] - [facility]. 05/21/2023 10:57:21 Would You Say That, In General, Your Health Is Very Good [email or web address] Information not available 05/21/2023 How Often Does Anyone, Including Family, Physically Hurt You? Never [email or web address] Information not available 05/21/2023 How Often Does Anyone, Including Family, Insult Or Talk Down To You? Never [email or web address] Information no t available 05/21/2023 How Often Does Anyone, Including Family, Threaten You With Harm? Never [email or web address] Information not available 05/21/2023 How Often Does Anyone, Including Family, Scream Or Curse At You? Never [email or web address] Information not available 05/21/2023 Within The Past 12 Months, You Worried That Your Food Would Run Out Before You Got Money To Buy More. Never True [email or web address] Information n ot available 05/21/2023 Within The Past 12 Months, The Food You Bought Just Didn't Last And You Didn't Have Money To Get More. Never True ookctbmv55 Information n ot available 05/21/2023 How Hard Is It For You To Pay For The Very Basics Like Food, Housing, Medical Care, And Heating? Would You Say It Is: Not Hard At All [email or web address] Information not available 05/21/2023 In The Past 12 Months, Has Lack Of Reliable Transportation Kept You From Medical Appointments, Meetings, Work Or From Getting Things Needed For Daily Living? No [email or web address] Information not available 05/21/2023 What Is Your Housing Situation Today? I Have Housing. [email or web address] Information not available 05/21/2023 How Often In The Past Year Have You Used Marijuana (including Smoking, Vaping, Dabbing, Or Edibles)? Never [email or web address] Information not available 05/21/2023 How Often In The Past Year Have You Used Prescription Medications That Were Not Prescribed To You? Never [email or web address] Information n ot available 05/21/2023 How Often In The Past Year Have You Taken Your Own Prescription Medication More Than The Way It Was Prescribed Or For Different Reasons Than Its Intended Purpose? Never [email or web address] Information no t available 05/21/2023 How Often In The Past Year Have You Used Other Drugs (for Example, Heroin, Cocaine, Meth, Salvia, Inhalants)? Never mjceivgq67 Information not available 05/21/2023 Have You Ever Used IV Drugs? No [email or web address] Information not available 05/21/2023 What Matters Most To You? Staying Healthy, Keeping Active. Getting Exercise And Losing Some Weight [email or web address] Information not available 05/21/2023 During The Past Four Weeks Has Your Physical And Emotional Health Limited Your Social Activities With Family And Friends, Neighbors, Or Groups? Not At All [email or web address] Information not available 05/21/2023 During The Past Four Weeks, Was Someone Available To Help You If You Needed And Wanted Help? (For Example, If You [place] Very Nervous, Lonely, Or Blue; Got Sick And Had To Stay In Bed; Needed Someone To Talk To; Needed Help With Daily Chores; Or Needed Help Just Taking Care Of Yourself.) No- Not At All hijpiqlj32 Information n ot available 05/21/2023 During The Past Four Weeks, What Was The Hardest Physical Activity You Could Do For At Least 2 Minutes? Moderate yeskygmm51 Information not available 05/21/2023 Can You Get To Places Out Of Walking Distance Without Help? (For Example, Can You Travel Alone On Buses Or Taxis, Or Drive Your Own Car?) Yes ydnxbvuf94 Information not available 05/21/2023 Can You Go Shopping For Groceries Or Clothes Without Someone? s Help? Yes [email or web address] Information not available 05/21/2023 Can You Prepare Your Own Meals? Yes Information not available 05/21/2023 Can You Do Your Housework Without Help? Yes aeocdqpu17 Information not available 05/21/2023 Because Of Any Health Problems, Do You Need The Help Of Another Person With Your Personal Care Needs Such As Eating, Bathing, Dressing, Or Getting Around The House? No elvokewj87 Information not available 05/21/2023 Can You Handle Your Own Money Without Help? Yes [email or web address] Information not available 05/21/2023 Are You Having Difficulties Driving Your Car? No gcotshjb85 Information no t available 05/21/2023 Do You Always Fasten Your Seat Belt When You Are In A Car? Yes- Usually [email or web address] Information not available 05/21/2023 How Often During The Past Four Weeks Have You Been Bothered By Any Of The Following Problems? Falling Or Dizzy When Standing Up? Never Information not available 05/21/2023 Sexual Problems? Never [email or web address] Informat ion not available 05/21/2023 Trouble Eating Well? Sometimes [email or web address] Information not available 05/21/2023 Teeth Or Denture Problems? Sometimes Information not available 05/21/2023 Problems Using The Telephone? Never pxoxcstk48 Information not available 05/21/2023 Tiredness Or Fatigue? Sometimes [email or web address] Information not available 05/21/2023 Have You Had 2 Or More Falls Or Sustained An Injury With A Fall In The Last Year? No Information no t available 05/21/2023 Do You Have Difficulty With Walking Or Balance? No Information not available 05/21/2023 Do You Currently Use A Hearing Device? No aexguvcw83 Information not available 05/21/2023 Do You Currently Have Any Trouble With Your Vision? Yes [email or web address] Information no t available 05/21/2023 Do You Exercise For About 20 Minutes Three Or More Days A Week? Yes- Most Of The Time rquvqipf60 Information not available 05/21/2023 Are There Any Safety Concerns In Your Home (see Attached CDC Pamphlet)? No qcuemwjx74 Information not available 05/21/2023 How Often Do You Have Trouble Taking Medicines The Way You Have Been Told To Take Them? I Always Take Them As Prescribed ruihxwbs47 Information not available 05/21/2023 How Confident Are You That You Can Control And Manage Most Of Your Health Problems? Very Confident aptzdwvd72 Information not available 05/21/2023 Do You Currently Have Any Difficulty With Your Hearing? No pvqullrz31 Information not available 05/21/2023 Date Of Most Recent SBINS 05/21/2023 [email or web address] Information not available 05/21/2023 What Was The Date Of Your Most Recent Tobacco Screening? 09/01/2023 Information not available 09/01/2023 Has Tobacco Cessation Counseling Been Provided? Yes Information not available 09/01/2023 On What Date Was Tobacco Cessation Counseling Provided? 09/01/2023 Information not available 09/01/2023 Do You Or Have You Ever Used Any Other Forms Of Tobacco Or Nicotine? No [email or web address] Information not available 05/21/2023 Sex: Female Functional [...] preservative free, adsorbed 11/03/2018 completed Not Available [facility] 01/15/2023 04:53:39 Tdap 04/12/2007 completed Not Available [facility] 04:53:39 zoster live 06/16/2012 completed Not Available [facility] 01/15/2023 04:53:40 Pneumococcal conjugate PCV 13 09/17/2015 completed Not Available [facility] 01/15/2023 04:53:40 Influenza, high-dose, trivalent, PF 11/26/2017 completed Not Available [facility] 01/15/2023 04:53:41 Td(adult) unspecified formulation 09/30/1992 completed Not Available [facility] 01/15/2023 04:53:41 Influenza, split virus, trivalent, preservative 11/28/2015 completed Not Available [facility] 01/15/2023 04:53:41 Influenza, split virus, trivalent, preservative 01/04/2015 completed Not Available [facility] 01/15/2023 04:53:41 Influenza, split virus, quadrivalent, PF 12/21/2018 completed Not Available [facility] 01/15/2023 04:53:41 zoster recombinant 08/30/2018 completed Not Available [facility] 01/15/2023 04:53:42 zoster recombinant 01/26/2018 completed Not Available [facility] 01/15/2023 04:53:42 Influenza, high-dose, quadrivalent, PF 12/04/2020 completed Not Available [facility] 01/15/2023 04:53:43 Influenza, high-dose, quadrivalent, PF 12/11/2019 completed Not Available [facility] 01/15/2023 04:53:43 Influenza, high-dose, quadrivalent, PF 12/29/2021 completed Not Available [facility] 01/15/2023 04:53:43 COVID-19, mRNA, LNP-S, PF, 100 mcg/0.5mL dose or 50 mcg/0.25mL dose 07/09/2021 completed Not Available [facility] 01/15/2023 04:53:43 COVID-19 vaccine, vector-nr, rS-Ad26, PF, 0.5 mL 05/02/2020 completed Not Available [facility] 01/15/2023 04:53:44 SARS-COV-2 (COVID-19) vaccine, UNSPECIFIED 05/31/2020 completed Not Available [facility] 01/15/2023 04:53:44 SARS-COV-2 (COVID-19) vaccine, UNSPECIFIED 01/03/2021 completed Not Available [facility] 01/15/2023 04:53:44 pneumococcal polysaccharide PPV23 07/05/2014 completed Not Available [facility] 2022 04:53:45 Hep B, unspecified formulation 04/14/1993 completed Not Available [facility] 01/15/2023 04:53:45 Hep B, unspecified formulation 09/30/1992 completed Not Available [facility] 01/15/2023 04:53:46 Hep B, unspecified formulation 10/31/1992 completed Not Available [facility] 01/15/2023 04:53:46 influenza, unspecified formulation 12/11/2009 completed Not Available [facility] 01/15/2023 04:53:47 influenza, unspecified formulation 12/13/2012 completed Not Available [facility] 01/15/2023 04:53:47 influenza, unspecified formulation 12/18/2008 completed Not Available [facility] 01/15/2023 04:53:47 influenza, unspecified formulation 12/19/2010 completed Not Available [facility] 01/15/2023 04:53:47 influenza, unspecified formulation 12/30/2006 completed Not Available [facility] 01/15/2023 04:53:48 influenza, unspecified formulation 01/09/2014 completed Not Available [facility] 01/15/2023 04:53:48 influenza, unspecified formulation 01/26/2008 completed Not Available [facility] 01/15/2023 04:53:48 influenza, unspecified formulation 02/16/2012 completed Not Available [facility] 01/15/2023 04:53:48 Influenza, high-dose, quadrivalent, PF 12/17/2022 completed Not Available [facility] 03/19/2023 05:33:03 COVID-19, mRNA, LNP-S, PF, herminio-sucrose, 30 mcg/0.3 mL 12/28/2022 completed Not Available [facility] 03/19/2023 05:33:03 COVID-19, mRNA, LNP-S, bivalent, PF, 50 mcg/0.5 mL or 25mcg/0.25 mL dose 12/01/2023 completed DENYS Bauer, [facility] 12/20/2023 15:23:33 Respiratory syncytial virus (RSV) vaccine, unspecified 12/01/2023 completed DENYS Bauer, [facility] 12/20/2023 15:24:29 influenza, unspecified formulation 12/01/2023 completed DENYS Bauer [facility] 12/20/2023 15:25:14 Past Encounters Encounter ID Performer Location Encounter Start Date Encounter Closed Date Diagnosis/Indication Diagnosis SNOMED-CT Code Diagnosis ICD10 Code [id number] LOLLY CORTEZ MD [address] [address] 05/21/2023 10:03:54 05/21/2023 11:37:49 Onychomycosis 984732482 B35.1 Asthma 840752973 J45.90 9 Cardiomyopathy 43509511 I10 Disorder of hip joint 42 9080151 M12.859 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 Hyperlipidemia 30147631 E78.5 Vulval and /or perineal noninflammatory disorders 778107699 N90.9 Adult heal th examination 537542358 Z00.[id number] [place] [address] 09/01/2023 10:23:16 09/01/2023 13:28:10 Vertigo 243726996 R42 Impacted c erumen of bilateral ears 7133237250 617761 H61.23 [id number] LOLLY CORTEZ MD [facility] [address] [place] [address] 11/26/2023 07:26:08 11/26/2023 08:10:59 Screening mammography 23532586 Z12.31 Adjustment disorder 1722 6007 F43.20 Asthma 795661848 J45.90 9 Essential hypertension 12659766 I10 Guttate psoriasis 883929 00 L40.4 Cardiomyopathy 58005450 I10 Hyperlipidemia 08758109 E78.5 Prediabetes 969034583 R7 3.03 Health Concerns Section Related Observation LastModified by Organization Detai ls LastModified Time None Recorded Concern Status LastModified by Organization Details LastModified Time None Recorded Advance Directives Directive None Recorded Payers Encounter Date Sequence Insurance Name Policy Number Policy Lema Covered Member ID Lema Member ID Guarantor Name 05/21/2023 1 [id number] - [place]PO) [id number] Luna Mott [id number] Luna Mott 09/01/2023 1 [place] - [place]) [id number] Luna Mott [id number] Luna Mott 11/26/2023 1 [place] - [place]) [id number] Luna Mott [id number] Luna Mott Notes Date Note Type Note Provider Name and Address Organization Details Recorded Time 05/21/2023 text/html HPI Notes: Thais here today for an annual wellness exam MD [address], [place], [address], [facility] 05/24/2023 18:32:35 09/01/2023 text/html HPI [...] the name of it. [address], [place], [address], [facility]. 09/01/2023 13:55:07 11/26/2023 text/html HPI Notes: Thais here today for follow-up of cardiomyopathy, obesity MD [address], [place], [address], [facility]. 11/28/2023 09:26:44 OBGyn Episode No OBEpisode recorded.
--- OUTSIDE RECORDS SUMMARY | 2024-01-12 10:58 | XMS_ITS | Encounter Summary ---
Author Organization [facility] [place] [address] Care Team Providers Care Adhesive Sprayer Name Role Phone Lolly Oliveira MD Primary Care Provider [phone] Encounter Details Date Type Department Care Team (Late st Contact Info) Description 03/15/2023 Telephone Cardiology at [address] [phone] Saranya Ma Social History Tobacco Use Types [...] to have an echo done at [facility] prior to her appt withhim there on 05/12/23. Message sent to Dr. Mcmahon asking him to put order in if he would like her to have this done. Saranya Ma Sr. Clinical Procedure [place]/Lace Paper Machine Operator documented in this encounter Plan of Treatment Upcoming Encounters Date Type Department Care Team (Late st Contact Info) Description 01/16/2024 10:00 AM EST Hospital Encounter Non-[place] [address] Arrived documented as of this encounter Visit Diagnoses Not on filedocumented in this encounter Care Teams Adhesive Sprayer Relationship Specialty Start Date End Date Lolly Oliveira MD [address] [place] [address] PCP - General 07/17/13 documented as of this encounter
--- OUTSIDE RECORDS SUMMARY | 2024-01-12 10:58 | XMS_ITS | Encounter Summary ---
Author Organization [facility] Address [address] [place] [address] Care Team Providers Care Multiple Drum Sander Name Role Phone Lolly Oliveira MD Primary Care Provider [phone] Encounter Details Date Type Department Care Team (Late st Contact Info) Description 05/27/2021 Lab Requisition [facility] Pathology & Laboratory Medicine - [address] [address] Iman Moran, DO [address] [place], [place] [id number] Encounter for other general examination Social History [...] 13:31 EDT [facility] Final Diagnosis A. COLON, POLYP [...] [facility] Performing Lab [facility] 05/30/2021 13:31 [facility] Scanned Images 05/30/2021 13:31 [facility] Tissue ENTIRE COLON / Unknown 05/27/2021 11:23 EDT 05/27/2021 16:33 EDT Iman Moran DO PATHOLOGY ORDERABLES [facility] [address] [place] [address] documented in this encounter Visit Diagnoses Diagnosis Encounter for other general examination documented in this encounter Care Teams Multiple Drum Sander Relationship Specialty Start Date End Date Lolly Oliveira MD [address] [place] [address] PCP - General 11/13/08 documented as of this encounter
--- OUTSIDE RECORDS SUMMARY | 2024-01-12 10:58 | XMS_ITS | Encounter Summary ---
Author Organization [facility] [place] [address] Care Team Providers Care Wheelchair Rental Clerk Name Role Phone Lolly Oliveira MD Primary Care Provider [phone] Reason for Visit * Reason Comments Follow-up 8 weeks UVB treatmen t twice weekly Encounter Details Date Type Department Care Team (Late st Contact Info) Description 07/19/2023 11:00 AM EDT Office Visit Dermatology at [address] [phone] Clay Ramírez MD [address], ERIKA A DERMATOLOGY [place], [place] [id number] Psoriasis Social History Tobacco Use Types Packs/Day [...] [facility] Hospital Encounter Non-[place] [address] Arrived documented as of this encounter Visit Diagnoses Diagnosis Psoriasis Other psoriasis documented in this encounter Care Teams Wheelchair Rental Clerk Relationship Specialty Start Date End Date Lolly Oliveira MD [address] [place] [address] PCP - General 07/17/13 documented as of this encounter
--- OUTSIDE RECORDS SUMMARY | 2024-01-12 10:58 | XMS_ITS | Encounter Summary ---
Author Organization [facility] [place] [address] Care Team Providers Care Auto Design Checker Name Role Phone Lolly Oliveira MD Primary Care Provider [phone] Encounter Details Date Type Department Care Team (Latest Contact Info) Description 10/23/2022 10:00 AM EDT - 10/23/2022 11:59 PM EDT Hospital Encounter Non[place] [phone] Discharge Disposition: Home Social History Tobacco Use [...] with spacer fluticasone propionate (Flonase) 50 mcg/actuation Shorter, Suspension 1 spray by Each Nare route [facility]counter Non-[place] [address] Arrived documented as of this [...] filedocumented in this encounter Care Teams Auto Design Checker Relationship Specialty Start Date End Date Lolly Oliveira MD [address] [place] [address] PCP - General 07/17/13 documented as of this encounter
--- OUTSIDE RECORDS SUMMARY | 2024-01-12 10:58 | XMS_ITS | Encounter Summary ---
Author Organization [facility] [place] [address] Care Team Providers Care Nurse Practitioner Hospitalist Name Role Phone Lolly Oliveira MD Primary Care Provider [phone] Encounter Details Date Type Department Care Team (Late st Contact Info) Description 11/16/2022 Telephone Cardiology at [address] [phone] Luna Rousseau, RN Social History Tobacco Use [...] BP today was 118/57 at [facility] at [facility]. Pt is going twice a [...] [facility] Hospital Encounter [place] [phone] Arrived documented as of this encounter Visit Diagnoses Not on filedocumented in this encounter Care Teams Nurse Practitioner Hospitalist Relationship Specialty Start Date End Date Lolly Oliveira MD [address] [place] [address] PCP - General 07/17/13 documented as of this encounter
--- OUTSIDE RECORDS SUMMARY | 2024-01-12 10:58 | XMS_ITS | Encounter Summary ---
Author Organization [facility] Address [address] [place] [address] Care Team Providers Care First Aid Director Name Role Phone Lolly Oliveira MD Primary Care Provider [phone] Encounter Details Date Type Department Care Team (Late st Contact Info) Description 06/16/2012 Results Only [facility] - [facility] ([facility] [address] [place], [place] [id number] Lolly Oliveira MD [address] [place], [place] [phone] Social History Tobacco Use Types Packs/Day Years [...] ? JING ALVARENGA ? Accession #: ? [id number] : ? 1950 (Age: 61) ??F ?Collect [...] MD PATHOLOGY ORDERABLES [facility] [address] [place] [address] documented in this encounter Visit Diagnoses Not on filedocumented in this encounter Care Teams First Aid Director Relationship Specialty Start Date End Date Lolly Oliveira MD [address] [place] [address] PCP - General 11/13/08 documented as of this encounter
--- OUTSIDE RECORDS SUMMARY | 2024-01-12 10:58 | XMS_ITS | Encounter Summary ---
Author Organization [facility] Address [facility] [place] [address] Care Team Providers Care Religious Education Director Name Role Phone Lolly Oliveira MD Primary Care Provider [phone] Reason for Visit * Auth/Cert (Routine) Specialty Diagnoses / Procedures Referred By Contac t Referred To Contact Diagnoses Left bundle-branch block, unspecified Other cardiomyopathies Left bundle branch block [I44.7]Nonischemic cardiomyopathy [I42.8] Procedures PRG CATH PLMT LEFT HEART CATH & ARTS W/INJ & ANGIO IMG S&I ELECTROPHYSIOLOGY PROCEDURE Lalit Mcmahon MD [facility] [place] [address] [facility] Referral ID Status Reason Start Date Expiration Date Visits Re quested Visits Authorized [id number] 1 1 Encounter Details Date Type Department Care Team (Latest Contact Info) Description 07/23/2022 11:39 AM EDT - 07/24/2022 10:23 AM EDT [place] [phone] Lalit Mcmahon MD [facility] [place] [address] Left bundle branch block; Nonischemic cardiomyopathy; Cardiac resynchronization therapy defibrillator (GENERAL PURCHASING AGENT-D) in place Discharge Disposition: Home Social History [...] Luna Mott Patient Age: 71 y.o. Language: Austrian Race: White Ethnicity: Not nor Admit date: 07/23/2022 Discharge date and time: 07/24/22 Attending Physician: Lalit Mcmahon MD Discharge Physician: Lalit Mcmahon MD Follow-up Recommendations for Providers: - s/p GENERAL PURCHASING AGENT-D implant - post implant QRS 130 ms [...] Nevus ??? Solar lentigo Operations/Major Procedures: 07/23/22: [facility] GENERAL PURCHASING AGENT-D implant History of Presentation: 71 y.o. female with a history of HFrEF, LBBB, QRS >150, NYHA II who is POD#1 of GENERAL PURCHASING AGENT-D implant (G[employer]). Hospital Course: Elective admission for GENERAL PURCHASING AGENT-D implant Admitted post-implant for pain management, telemetry [...] (heart failure with reduced ejection fraction) [I50.20] GENERAL PURCHASING AGENT-D implant Admission Condition: good Indication for Admission: [...] g Refills: 3 fluticasone propionate 50 mcg/actuation [place], Suspension Commonly known as: Flonase 1 spray [...] incision. Make sure to use a cloth coverer (such as a towel) in between the [...] F. The office scheduling phone number is [phone]. ARM MOVEMENT RESTRICTIONS POST-IMPLANT - Do not [...] please call the Cardiac ElectrophysiologyTriage Nurse at [phone], option 3. General Instructions None Discharge References/Attachments [...] incision. Make sure to use a cloth coverer (such as a towel) in between the [...] F. The office scheduling phone number is [phone]. ARM MOVEMENT RESTRICTIONS POST-IMPLANT - Do not [...] please call the Cardiac ElectrophysiologyTriage Nurse at [phone], option 3. documented in this encounter Medications [...] with spacer fluticasone propionate (Flonase) 50 mcg/actuation [place], Suspension 1 spray by Each Nare [...] as of this encounter Progress Notes * aLlit Mcmahon MD - 07/24/2022 8:43 AM EDT Cardiac Electrophysiology Post-Implant Device Interrogation Luna Mott [id number] 07/24/2022 History: Luna Mott is a 71 y.o. female with a history of HFrEF, LBBB, QRS >150, NYHA II who is POD#1 of GENERAL PURCHASING AGENT-D implant (Gunlock [employer]). Overall feels well this morning. Ready [...] Neuro- A&Ox3 Device Interrogation: Data ?? Game Advisor Model # Serial # Generator [employer] [id number] Atrial Lead [employer] [id number] [id number] RV Lead [employer] 0672 [id number] LV Lead [employer] [id number] ?? Diagnostics Pacing Mode: DDD 60-130 Underlying Rhythm: [place] Atrial Episodes: None Ventricular Episodes: None FINAL PROGRAMMING: Pacing: Mode Lower rate (ppm) Upper rate (ppm) ?? DDD 60 130 VF: Rate (bpm) #Antitachycardia pacing First shock energy (J) ?? 200 Quick convert 41 VT: 170 Monitor only Monitor only ? Battery and Leads Impedances (ohms) Sensing (mV) Thresholds HV RA RV LV RA RV LV RA RV LV 73 [phone] (LVa) 7.7 13.1 >25 0.4V @ 0.4 ms 0.4V @ 0.4 ms 0.5 V @ 1.0 ms POD#1 CXR: All leads in nominal positioning Impression: 71 y.o. female who is s/p GENERAL PURCHASING AGENT-D implant for LBBB, NYHA II, HFrEF. - [...] [facility]) Fadi Nunez MD 07/24/2022 Pager: [phone] I met with the patient today and [...] agreement. ? Dr. Lalit Mcmahon, electrophysiology attending ([id number]) * Zaria Wright RN - 07/23/2022 8:28 [...] HF, QRS > 150 ms presents for GENERAL PURCHASING AGENT-D placement. ROS: Denies recent fevers or chills [...] 0.9) flush 5 mL 5 mL Intravenous [id number] ramos MD ??? sodium chloride 0.9 % [...] HF, QRS > 150 ms presents for GENERAL PURCHASING AGENT-D placement. Backup would be LBBAP lead. Antibiotics: cefazolin Rationales for, intended benefits and potential risk of planned procedures reviewed. The patient indicated understanding and agreement with the plan. Informed consent signed. Procedure checklist completed. Fadi Nunez MD Cardiac Electrophysiology Fellow [facility] Pager [phone] 07/23/2022 I met with the patient today [...] agreement. ? Dr. Lalit Mcmahon, electrophysiology attending ([id number]) documented in this encounter Miscellaneous Notes * Brief Op Note - Lalit Mcmahon MD - 07/23/2022 4:04 PM EDT Brief Operative Note Patient Name: Luna Mott : [id number] MR#: [id number] Case Date: 07/23/2022 Surgeon: Surgeon(s) and Role: [...] AM EST Hospital Encounter [place] [address] Arrived Scheduled Orders Name Type Priority Associated Diagnoses Orde r Schedule EKG 12 Lead ECG Routine Cardiac resynchronization therapy defibrillator (GENERAL PURCHASING AGENT-D) in place One Time for 1 Occurrences [...] (Bezet) 522 ms MUSE SYSTEM Calculated R Iraan 78 degrees MUSE SYSTEM Calculated T [place] -71 degrees MUSE SYSTEM INTERPRETATION AV dual-paced [...] who have questions please contact the health vp care management that requested your imaging first. ? Narrative [...] patients who have questions please contactthe health vp care management that requested your imaging first. Lalit Mcmahon MD IMG DX ORDERABLES * ELECTROPHYSIOLOGY PROCEDURE (07/23/2022 1:11 PM EDT) Anatomical Region Laterality Modality Other Narrative 07/23/2022 4:24 PM EDT Table formatting from the original result was not included. BIVENTRICULAR ICD IMPLANTATION Re Recording Mixer: Lalit Mcmahon MD Fellow: Fadi Nunez MD [...] lateral branch of the CS in the BHUTANESE view. This branch was cannulated with a [...] entire procedure. LEAD AND GENERATOR DATA: Game Advisor Model # Serial # Generator [employer] [id number] Atrial Lead [employer] 7841 [id number] RV Lead [employer] 0672 [id number] LV Lead [employer] 4674 [id number] PACE/SENSE DATA: Sensed wave (mV) Threshold (V) [...] (cGycm2) 300 CONCLUSIONS: Successful implantation of a [employer] biventricular ICD for primary prevention and treatment of symptoms related to congestive heart failure. Follow up in EP clinic in 1-2 months. Procedures performed: new ICD system ( cpt 09877-G6); implant LV lead at time of ICD insertion (cpt 55340) I have read, edited and approve of this report: Lalit Mcmahon MD S Cardiac Electrophysiology 07/23/2022 4:22 PM Procedure Note Lalit Mcmahon MD - 07/23/2022 BIVENTRICULAR ICD IMPLANTATION Re Recording Mixer: Lalit Mcmahon MD Fellow: Fadi Nunez MD [...] appropriate lateralbranch of the CS in the BHUTANESE view. This branch was cannulated with a [...] the entireprocedure. LEAD AND GENERATOR DATA: Game Advisor Model # Serial # Generator [employer] [id number] Atrial Lead [employer] 7841 [id number] RV Lead [employer] 0672 043391 LV Lead [employer] 4674 337456 PACE/SENSE DATA: Sensed wave (mV) Threshold (V) [...] (cGycm2) 300 CONCLUSIONS: Successful implantation of a [employer] biventricular ICD forprimary prevention and treatment of symptoms related to congestive heartfailure. Follow up in EP clinic in 1-2 months. Procedures performed: new ICD system ( cpt 23567-J0); implant LV lead attime of ICD insertion (cpt 81559) I have read, edited and approve of this report: Lalit Mcmahon MD [facility] Cardiac Electrophysiology 07/23/2022 4:22 PM Lalit Mcmahon MD EP PROCEDURE ORDERAB LES * POCT Glucose (07/23/2022 12:54 PM EDT) Glucose, POC 83 65 - 199 mg/dL [facility] Comment: Supplemental ranges: <140 mg/dL before meals <180 mg/dL all other times of the day Blood 07/23/2022 12:5 4 PM EDT 07/23/2022 12:54 PM EDT Lalit Mcmahon MD POINT OF CARE TEST O RDERABLES Performing Organization Address [facility] Co de Phone Number [facility] [place] [address] * EKG 12 Lead (07/23/2022 12:33 PM EDT) Ventricular rate 72 BPM MUSE SYSTEM Atrial Rate 72 BPM MUSE SYSTEM P-R Interval 158 ms MUSE SYSTEM QRS Duration 176 ms MUSE SYSTEM Q-T Interval 458 ms MUSE SYSTEM QTC Calculated (Bezet) 501 ms MUSE SYSTEM Calculated P [place] 34 degrees MUSE SYSTEM Calculated R [place]an 12 degrees MUSE SYSTEM Calculated T [place]an -173 degrees MUSE SYSTEM INTERPRETATION Normal sinus rhythm Left bundle branch block Abnormal ECG No previous ECGs available Confirmed by MD Salome, Lalit ([id number]) on 07/23/2022 1:19:03 PM MUSE SYSTEM 07/23/2022 12:3 3 PM EDT 07/23/2022 1:19 PM EDT Lalit Mcmahon MD ECG ORDERABLES Performing Organization Address [facility] de Phone Number MUSE SYSTEM * Differential, Automated (07/23/2022 11:55 AM EDT) Neutrophil % 62.6 % [facility] Neutrophil Absolute 4.14 1.70 - 6.10 x10(3)/[facility] Lymph % 27.0 % [facility] Lymphocytes Abs 1.8 0.9 - 3.2 x10(3)/[facility] Monocyte % 7.3 % [facility] Monocyte Abs 0.5 0.3 - 0.9 x10(3)/[facility] Eos % 2.3 % [facility] Eosinophils Abs 0.2 0.0 - 0.4 x10(3)/[facility] Basophil % 0.6 % [facility] Baso Absolute 0.0 0.0 - 0.1 x10(3)/[facility] Immature Gran % 0.20 % [facility] Comment: Immature granulocytes(IG's)percentage and absolute count will include metamyelocytes, myelocytes, and promyelocytes. Blood smears from CBCs yielding IG's will be scanned manually for concordance. If this scan disagrees with the automated IG or if promyelocytes are noted, a manual differential will be performed. Immature Gran Absolute 0.01 0.00 - 0.04 x10(3)/[facility] Blood 07/23/2022 11:5 5 AM EDT 07/23/2022 12:07 PM EDT Narrative Resulting Agency Comment Spec In Lab Lalit Mcmhaon MD HEMATOLOGY ORDERABLE S [facility] [place] [address] * Hemogram (07/23/2022 11:55 AM EDT) White Blood Cell 6.6 4.0 - 9.5 x10(3)/[facility] Red Blood Cell 4.50 4.00 - 5.21 x10(6)/[facility] Hemoglobin 13.7 11.7 - 15.5 g/dL [facility] Hematocrit 42.5 35.7 - 45.8 % [facility] Mean Cell Volume 94.4 82.6 - 94.4 fL [facility] Mean Cell Hemoglobin 30.4 27.1 - 32.0 pg [facility] Mean Cell Hemoglobin Concentration 32.2 31.7 - 35.0 g/dL [facility] Platelet 193 145 - 357 x10(3)/[facility] RDW Standard Deviation 45.5 37.0 - 46.0 fL [facility] RDW coefficient of variation 13.2 11.5 - 14.1 % [facility] Mean Platelet Volume 9.5 7.6 - 12.9 fL [facility] NRBC% auto 0.0 % [facility] NRBC Absolute 0.000 0.000 - 0.000 x10(3)/mcL [facility] Blood 07/23/2022 11:5 5 AM EDT 07/23/2022 12:07 PM EDT Narrative Resulting Agency Comment Spec In Lab Lalit Mcmahon MD HEMATOLOGY ORDERABLE S [facility] [address] [facility] [place] [address] * (ABNORMAL) BMP w/fasting Glucose (07/23/2022 11:55 AM EDT) Glucose Fasting 110(H) 65 - 99 mg/dL [facility] Comment: ?Fasting* Glucose Interpretive [...] of Diabetes Mellitus, Position Statement from the [place] Diabetes Association. ??Diabetes Care, Volume 33, Supplement 1, Mar 2009 Blood Urea Nitrogen 23(H) 8 - 18 mg/dL [facility] Creatinine 1.07 0.70 - 1.20 mg/dL [facility] Sodium 141 135 - 145 mmol/L [facility] Potassium 4.8 3.5 - 5.0 mmol/L [facility] Comment: Please note: ??Patients with WBC >100,000 may have falsely elevated Potassium levels. ??For accurate Potassium quantification in these patients send serum separator tube (gold top) for subsequent determinations. ??Contact the Clinical Chemistry Laboratory if there are any questions. Chloride 106 98 - 107 mmol/L [facility] Carbon Dioxide 26 22 - 31 mmol/L [facility] Anion Gap 9 5 - 15 mmol/L [facility] Calcium 9.7 8.5 - 10.5 mg/dL [facility] Est Glomerular Filtration Rate 55(L) >=60 mL/min/1. 73 m?? [facility] Comment: This patient's estimated [...] Mcmahon MD CHEMISTRY ORDERABLES Performing Organization Address [facility] Co de Phone Number [facility] [place] [address] * Prothrombin Time (07/23/2022 11:55 AM EDT) Prothrombin Time 11.7 9.4 - 12.5 sec [facility] International Normalization Ratio 1.0 [facility] Comment: An INR <2.0 [...] MD HEMATOLOGY ORDERABLE S Performing Organization Address [facility] Co de Phone Number [facility] [place] [address] documented in this encounter Visit Diagnoses Diagnosis HFrEF (heart failure with reduced ejection fraction)- Primary Left bundle branch block Other left bundle branch block Nonischemic cardiomyopathy Other primary cardiomyopathies Cardiac resynchronization therapy defibrillator (GENERAL PURCHASING AGENT-D) in place Left bundle branch block Other [...] Routine documented in this encounter Care Teams Religious Education Director Relationship Specialty Start Date End Date Lolly Oliveira MD [address] [place] [address] PCP - General 07/17/13 documented as of this encounter
--- OUTSIDE RECORDS SUMMARY | 2024-01-12 10:58 | XMS_ITS | Encounter Summary ---
Author Organization [facility] Address [facility] [place] [address] Care Team Providers Care Porcelain Finish Sprayer Name Role Phone Lolly Oliveira MD Primary Care Provider [phone] Encounter Details Date Type Department Care Team (Late st Contact Info) Description 05/03/2023 Telephone Cardiology at [address] [phone] Lalit Mcmahon MD [facility] [address] Social History Tobacco Use Types Packs/Day Years Used Date Smoking Tobacco: Never Alcohol Use Standard Drinks/Week Comments Not Currently 0 (1 standard drink = 0.6 oz pur e alcohol) [facility] Inpatient Questions Answer Date Recorded [...] AM EST Hospital Encounter [place] [address] Arrived documented as of this encounter Visit Diagnoses Not on filedocumented in this encounter Care Teams Porcelain Finish Sprayer Relationship Specialty Start Date End Date Lolly Oliveira MD [address] [place] [address] PCP - General 07/17/13 documented as of this encounter
--- OUTSIDE RECORDS SUMMARY | 2024-01-12 10:58 | XMS_ITS | Encounter Summary ---
Author Organization [facility] [place] [address] Care Team Providers Care Assistant Foreman Name Role Phone Lolly Oliveira MD Primary Care Provider [phone] Encounter Details Date Type Department Care Team [...] AM EST Hospital Encounter Non-Invasive [place] [address] Arrived documented as of this encounter Visit Diagnoses Not on filedocumented in this encounter Care Teams Assistant Foreman Relationship Specialty Start Date End Date Lolly Oliveira MD [address] [place] [address] PCP - General 07/17/13 documented as of this encounter
--- OUTSIDE RECORDS SUMMARY | 2024-01-12 10:58 | XMS_ITS | Encounter Summary ---
Author Organization [facility] Address [address] [place] [address] Care Team Providers Care Cnc Operator Name Role Phone Lolly Oliveira MD Primary Care Provider [phone] Encounter Details Date Type Department Care Team (Late st Contact Info) Description 02/20/2020 Lab Requisition [facility] - [address] [id number] Outr Resulting Lab, Provider Social History Tobacco [...] in accordance with CLIA regulations, [employer] [place] [employer] (CAP) guidelines (May 25, 2019), and FDA guidance (May 06, 2019). This test is only for use under the Food and Drug Administration's Emergency Use Authorization. Swab ENTIRE NASOPHARYNX / Unknown 02/19/2020 16:30 EST 02/20/2020 16:09 EST Provider Outr Resulting Lab MICROBIOLOGY - GENERAL ORDERABLES [facility] [place] * COVID-19 TESTING (02/19/2020 16:30 EST) COVID-19 [...] in accordance with CLIA regulations, [employer] [place] [employer] (CAP) guidelines (May 25, 2019), and FDA guidance (May 06, 2019). This test is only for use under the Food and Drug Administration's Emergency Use Authorization. Performing Lab [facility] 02/22/2020 23:41 EST [facility] Swab 02/19/2020 16:3 0 EST 02/20/2020 16:09 EST Provider Outr Resulting Lab MICROBIOLOGY - GENERAL ORDERABLES [facility] [address] [place] [address] [facility] [place] documented in this encounter Visit Diagnoses Not on filedocumented in this encounter Care Teams Cnc Operator Relationship Specialty Start Date End Date Lolly Oliveira MD [address] [place] [address] PCP - General 11/13/08 documented as of this encounter
--- OUTSIDE RECORDS SUMMARY | 2024-01-12 10:58 | XMS_ITS | Encounter Summary ---
Author Organization [facility] Address [address] [place] [address] Care Team Providers Care Electric Brain Wave Equipment Mechanic Name Role Phone Lolly Oliveira MD Primary Care Provider [phone] Encounter Details Date Type Department Care Team (Late st Contact Info) Description 04/12/2007 Results Only [facility] conversion [address] [place] [address] Lolly Oliveira MD [address] [place], [place] [id number] Social History Tobacco Use Types Packs/Day Years [...] ? JING ALVARENGA ? Accession #: ? [id number] : ? 1950 (Age: 56) ??F ?Collect Date: ? 04/12/2007 Location: ? [facility] ? Receive Date: ? 04/13/2007 Provider: ?LOLLY OLIVEIRA MD Copy to: ? Specimen/Source: ?ThinPrep Pap Test, Cervix/Endocervix, processed on [employer] ThinPrep Imaging System, with manual evaluation Last [...] MD PATHOLOGY ORDERABLES [facility] [address] [place] [address] documented in this encounter Visit Diagnoses Not on filedocumented in this encounter Care Teams Electric Brain Wave Equipment Mechanic Relationship Specialty Start Date End Date Lolly Oliveira MD [address] [place] [address] PCP - General 11/13/08 documented as of this encounter
--- OUTSIDE RECORDS SUMMARY | 2024-01-12 10:58 | XMS_ITS | Encounter Summary ---
Author Organization [facility] [place] [address] Care Team Providers Care Marketing Secretary Name Role Phone Lolly Oliveira MD Primary Care Provider [phone] Encounter Details Date Type Department Care Team (Late st Contact Info) Description 03/17/2023 Telephone Cardiology at [address] [phone] Saranya Ma Social History Tobacco Use Types [...] 9:43 AM EST Echo order faxed to [facility] at [phone]. No Prior auth needed. Ref #:[id number]. Saranya Ma Sr. Clinical Procedure [place]/Traffic Agent documented in this encounter Plan of Treatment Upcoming Encounters Date Type Department Care Team (Late st Contact Info) Description 01/16/2024 10:00 AM [facility] Hospital Encounter [place] [address] Arrived documented as of this encounter Visit Diagnoses Not on filedocumented in this encounter Care Teams Marketing Secretary Relationship Specialty Start Date End Date Lolly Oliveira MD [address] [place] [address] PCP - General 07/17/13 documented as of this encounter
--- OUTSIDE RECORDS SUMMARY | 2024-01-12 10:58 | XMS_ITS | Encounter Summary ---
Author Organization [facility] Address [address] [place] [address] Care Team Providers Care Patternmaker All Around Name Role Phone Lolly Oliveira MD Primary Care Provider [phone] Encounter Details Date Type Department Care Team (Late st Contact Info) Description 04/25/[address] [facility] - [facility] ([facility] [address], [place] [phone] Lolly Oliveira MD [address] [place], [place] [id number] Social History Tobacco Use Types Packs/Day Years [...] ? JING ALVARENGA ? Accession #: ? [id number] ? : ? 1950 (Age: 58) ??F [...] Lolly Oliveira MD PATHOLOGY ORDERABLES [facility] [address] [place] [address] documented in this encounter Visit Diagnoses Not on filedocumented in this encounter Care Teams Patternmaker All Around Relationship Specialty Start Date End Date Lolly Oliveira MD [address] [place] [address] PCP - General 11/13/08 documented as of this encounter
--- OUTSIDE RECORDS SUMMARY | 2024-01-12 10:58 | XMS_ITS | Encounter Summary ---
Author Organization Count Includes [facility] [address] Care Team Providers Care Case Work Aide Name Role Phone Lolly Oliveira MD Primary Care Provider [phone] Encounter Details Date Type Department Care Team (Latest Contact Info) Description 01/21/2023 10:00 AM EST - 01/21/2023 11:59 PM EST Hospital Encounter Non-Invasive [place] [phone] Discharge Disposition: Home Social History Tobacco Use [...] with spacer fluticasone propionate (Flonase) 50 mcg/actuation [place], Suspension 1 spray by Each Nare route [...] AM EST Hospital Encounter Non-Invasive [place] [address] Arrived documented as of this [...] on filedocumented in this encounter Care Teams Case Work Aide Relationship Specialty Start Date End Date Lolly Oliveira MD [address] [place] [address] PCP - General 07/17/13 documented as of this encounter
--- OUTSIDE RECORDS SUMMARY | 2024-01-12 10:58 | XMS_ITS | Encounter Summary ---
Author Organization [facility] [place] [address] Care Team Providers Care Cigar Inspector Name Role Phone Lolly Oliveira MD Primary Care Provider [phone] Encounter Details Date Type Department Care Team (Latest Contact Info) Description 07/20/2023 10:00 AM EDT - 07/20/2023 11:59 PM EDT Hospital Encounter [place] [phone] Discharge Disposition: Home Social History Tobacco Use [...] with spacer fluticasone propionate (Flonase) 50 mcg/actuation [place], Suspension 1 spray by Each Nare route daily as needed. documented as of this encounter Plan of Treatment Upcoming Encounters Date Type Department Care Team (Late st Contact Info) Description 01/16/2024 10:00 AM [facility] Encounter [place] [address] Arrived documented as of this encounter Procedures [...] on filedocumented in this encounter Care Teams Cigar Inspector Relationship Specialty Start Date End Date Lolly Oliveira MD [address] [place] [address] PCP - General 07/17/13 documented as of this encounter
--- OUTSIDE RECORDS SUMMARY | 2024-01-12 10:58 | XMS_ITS | Encounter Summary ---
Author Organization [facility] Address [address] [place] [address] Care Team Providers Care Forest Technology Professor Name Role Phone Lolly Oliveira MD Primary Care Provider [phone] Encounter Details Date Type Department Care Team (Late st Contact Info) Description 11/13/2020 Lab Requisition [facility] Pathology & Laboratory Medicine - [address] [address] Outr Resulting Lab, Provider Social History Tobacco [...] Outr Resulting Lab MICROBIOLOGY - GENERAL ORDERABLES [facility] [address] [place] [address] * COVID-19 TESTING (11/13/2020 7:30 EDT) COVID-19 rt-PCR Result Negative Negative 11/14/2020 11:46 EDT [facility] Comment: This test [...] performed using the med SARS-CoV-2 assay ([employer] on the Med 6800 System Performing Lab Med 6800 [facility] Lab 11/14/2020 11:46 EDT [facility] Swab 11/13/2020 7:30 EDT 11/13/2020 20:57 EDT Provider Outr Resulting Lab MICROBIOLOGY - GENERAL ORDERABLES [facility] [address] [place] [address] documented in this encounter Visit Diagnoses Not on filedocumented in this encounter Care Teams Forest Technology Professor Relationship Specialty Start Date End Date Lolly Oliveira MD [address] [place] [address] PCP - General 11/13/08 documented as of this encounter
--- OUTSIDE RECORDS SUMMARY | 2024-01-12 10:58 | XMS_ITS | Encounter Summary ---
Author Organization [facility] [place] [address] Care Team Providers Care Thermal Cutting Tracer Machine Operator Name Role Phone Lolly Oliveira MD Primary Care Provider [phone] Encounter Details Date Type Department Care Team (Latest Contact Info) Description 10/18/2023 10:00 AM EDT - 10/18/2023 11:59 PM EDT Hospital Encounter Non-Invasive [place] [phone] Discharge Disposition: Home Social History Tobacco Use [...] with spacer fluticasone propionate (Flonase) 50 mcg/actuation [place], Suspension 1 spray by Each Nare route daily as needed. documented as of this encounter Plan of Treatment Upcoming Encounters Date Type Department Care Team (Late st Contact Info) Description 01/16/2024 10:00 AM EST Hospital Encounter Non-Invasive [place] [address] Arrived documented as of this encounter Procedures [...] on filedocumented in this encounter Care Teams Thermal Cutting Tracer Machine Operator Relationship Specialty Start Date End Date Lolly Oliveira MD [address] [place] [address] PCP - General 07/17/13 documented as of this encounter
--- OUTSIDE RECORDS SUMMARY | 2024-01-12 10:58 | XMS_ITS | Encounter Summary ---
Author Organization [facility] Address [address] [place] [address] Care Team Providers Care Biomed Tech Name Role Phone Lolly Oliveira MD Primary Care Provider Encounter Details Date Type Department Care Team (Late st Contact Info) Description 05/02/2004 Results Only [facility] - Maple conversion [address] [place] [address] Lolly Oliveira MD [address] [place], [place] [id number] Social History Tobacco Use Types Packs/Day Years [...] 68. [facility] Report Status Final [id number] [facility] 05/02/2004 9:32 EST 05/10/2004 9:32 EST Lolly Oliveira MD MICROBIOLOGY - GENER AL ORDERABLES [facility] [address] [place] [address] * CYTOPATHOLOGY (05/02/2004 0:00 EST) Pathology Report: CYTOPATHOLOGY REPORT Reports generated via electronic interface contain original data; however they are lacking the format of the original report. Caution should be taken when reading/interpreti ng unformatted reports. Name: ? JING ALVARENGA ? Accession #: ? [id number] : ? 1950 (Age: 53) ??F ?Collect [...] [facility] Co de Phone Number [facility] [address] [place] [address] documented in this encounter Visit Diagnoses Not on filedocumented in this encounter Care Teams Biomed Tech Relationship Specialty Start Date End Date Lolly Oliveira MD [address] [place] [address] PCP - General 11/13/08 documented as of this encounter
--- OUTSIDE RECORDS SUMMARY | 2024-01-12 10:58 | XMS_ITS | Encounter Summary ---
Author Organization [facility] Address [facility] [place] [address] Care Team Providers Care Relief Docking Master Name Role Phone Lolly Oliveira MD Primary Care Provider [phone] Encounter Details Date Type Department Care Team (Late st Contact Info) Description 01/29/2023 Notes Only Cardiology at [address] [address] Merle Lin PA [facility] [place] [address] Social History Tobacco Use Types Packs/Day Years [...] pdf document Date of transmission: 01/29/2023 Device railroad cook: BSI Device type: FISH ROE PROCESSOR-D Presenting rhythm: /RVP/LVP AP 21% Right GREY GOODS EXAMINER 100% Left GREY GOODS EXAMINER: 100% Battery: 10.5 years [employer] Index rising in setting of increasing S3 intensity, increasing respiratory rate, increasing night heart rate, and increasing mean heart rate. MICKEY Villa 01/29/2023 9:06 AM documented in this encounter Plan of Treatment Upcoming Encounters Date Type Department Care Team (Late st Contact Info) Description 01/16/2024 10:00 AM EST Hospital Encounter Non-Invasive [place] [address] Arrived documented as of this encounter Visit Diagnoses Not on filedocumented in this encounter Care Teams Relief Docking Master Relationship Specialty Start Date End Date Lolly Oliveira MD [address] [place] [address] PCP - General 07/17/13 documented as of this encounter
--- OUTSIDE RECORDS SUMMARY | 2024-01-12 10:58 | XMS_ITS | Encounter Summary ---
Author Organization [facility] Address [address] [place] [address] Care Team Providers Care Program Coordinator Name Role Phone Lolly Oliveira MD Primary Care Provider [phone] Encounter Details Date Type Department Care Team (Late st Contact Info) Description 04/01/2005 Results Only [facility] - Maple conversion [address] [place] [address] Blair Dukes MD [address] [place] [id number] Social History Tobacco Use Types Packs/Day Years [...] ? JING ALVARENGA ? Accession #: ? [id number] ? : ? 1950 (Age: 54) ??F [...] ? Received in Hollande' s fixative labelled [place] and #1 ??terminal ileum bx is a single 0.3 x 0.2 x 0.2 cm tissue, submitted intact as (A). Received in Hollande' s fixative labelled [place] and #2 ??transverse colon bx is a single 0.2 x 0.2 x 0.2 cm tissue, submitted intact as (B). ??(Dr. Lechuga)/[facility] End of Report [facility] 04/01/2005 04/02/2005 15: 24 EST Blair Dukes MD PATHOLOGY ORDERABLES [facility] [address] [place] [address] documented in this encounter Visit Diagnoses Not on filedocumented in this encounter Care Teams Program Coordinator Relationship Specialty Start Date End Date Lolly Oliveira MD [address] [place] [address] PCP - General 11/13/08 documented as of this encounter
--- OUTSIDE RECORDS SUMMARY | 2024-01-12 10:58 | XMS_ITS | Encounter Summary ---
Author Organization [facility] Address [address] [place] [address] Care Team Providers Care Quantitative Analyst Developer Name Role Phone Lolly Oliveira MD Primary Care Provider Encounter Details Date Type Department Care Team (Late st Contact Info) Description 02/11/2021 Lab Requisition [facility] Pathology & Laboratory Medicine - [address] [address] Outr Resulting Lab, Provider Social History Tobacco [...] ORDERABLES [facility] [address] [place] [address] * COVID-19 TESTING (02/11/2021 8:00 EST) COVID-19 [...] was performed using the med SARS-CoV-2 assay ([employer] on the Med 6800 System Performing Lab Med 6800 [facility] Lab 02/12/2021 14:17 EST [facility] Swab 02/11/2021 8:00 EST 02/11/2021 22:22 EST Provider Outr Resulting Lab MICROBIOLOGY - GENERAL ORDERABLES [facility] [address] [place] [address] documented in this encounter Visit Diagnoses Not on filedocumented in this encounter Care Teams Quantitative Analyst Developer Relationship Specialty Start Date End Date Lolly Oliveira MD [address] [place] [address] PCP - General 11/13/08 documented as of this encounter
--- OUTSIDE RECORDS SUMMARY | 2024-01-12 10:58 | XMS_ITS | Encounter Summary ---
Author Organization [place] [address] Care Team Providers Care Cashier Clerk Name Role Phone Lolly Oliveira MD Primary Care Provider [phone] Encounter Details Date Type Department Care Team (Late st Contact Info) Description 05/18/2023 Telephone Dermatology at [address] [address] Nora Meredith LPN Social History [...] [facility] Hospital Encounter Non-[place] [address] Arrived documented as of this encounter Visit Diagnoses Not on filedocumented in this encounter Care Teams Cashier Clerk Relationship Specialty Start Date End Date Lolly Oliveira MD [address] [place] [address] PCP - General 07/17/13 documented as of this encounter
--- OUTSIDE RECORDS SUMMARY | 2024-01-12 10:58 | XMS_ITS | Encounter Summary ---
Author Organization [facility] Address [address] [place] [address] Care Team Providers Care Stone Hand Name Role Phone Lolly Oliveira MD Primary Care Provider [phone] Encounter Details Date Type Department Care Team (Late st Contact Info) Description 04/17/2005 Results Only [facility] [address] [place] [address] Lolly Oliveira MD [address] [place], [place] [id number] Social History Tobacco Use Types Packs/Day Years [...] ? JING ALVARENGA ? Accession #: ? [id number] : ? 1950 (Age: 54) ??F ?Collect Date: ? 04/17/2005 Location: ? [facility] ? Receive Date: ? 04/21/2005 Provider: ?LOLLY OLIVEIRA MD Copy to: ? Specimen/Source: ?ThinPrep Pap Test, Cervix/Endocervix, processed on [email or web address] Imaging System, with manual evaluation Last Menstrual Period: ? Treatment History: ? Cone biopsy: 25 years ago ? SPECIMEN ADEQUACY ? Satisfactory for Evaluation - transformation zone component present GENERAL CATEGORIZATION ? Negative for Intraepithelial Lesion or Malignancy ? Document reviewed and electronically signed by: ? BERHANE Faulkner(ASCP) ? Report Date: ??04/23/2005 10:56 End of Report [facility] 04/17/2005 04/21/2005 Lolly Oliviera MD PATHOLOGY ORDERABLES [facility] [address] [place] [address] documented in this encounter Visit Diagnoses Not on filedocumented in this encounter Care Teams Stone Hand Relationship Specialty Start Date End Date Lolly Oliveira MD [address] [place] [address] PCP - General 11/13/08 documented as of this encounter
--- OUTSIDE RECORDS SUMMARY | 2024-01-12 10:58 | XMS_ITS | Encounter Summary ---
Author Organization [facility] [place] [address] Care Team Providers Care Iron Plastic Bullet Maker Name Role Phone Lolly Oliveira MD Primary Care Provider [phone] Reason for Visit * Reason Onset Date Comments Post Procedure Call 07/30/2022 Encounter Details Date Type Department Care Team (Late st Contact Info) Description 07/30/2022 Notes Only Cardiology at [address] [phone] Rosenda Sutton, RN Post Procedure Call Social History Tobacco Use Types Packs/Day Years Used Date Smoking Tobacco: Never Alcohol Use Standard Drinks/Week Comments Not Currently 0 (1 standard drink = 0.6 oz pur e alcohol) [facility] Inpatient Questions Answer Date Recorded Does [...] 07/30/2022 9:59 AM EDTSummary: Post Procedure Call: MARGARINE MAKER implant EP RN Post-Procedure Note: Date of Follow Up Call: 07/30/2022 Spoke With: Patient Procedure Type (choose all that apply): ICD Performing MIRLANDE Mcmahon Date of Procedure: 07/23/2022 Date of Discharge: 07/24/2022 Follow Up EP Visit Scheduled?: No No Follow Up Visit Reason: Follow up outside Outside Location: [facility] Date of Non EP Visit: [...] Note: Follow-up Recommendations for Providers: - s/p MARGARINE MAKER-D implant - post implant QRS 130 [...] Hospital Encounter Non-[place] [address] Arrived documented as of this encounter Visit Diagnoses Not on filedocumented in this encounter Care Teams Iron Plastic Bullet Maker Relationship Specialty Start Date End Date Lolly Oliveira MD [address] [place] [address] PCP - General 07/17/13 documented as of this encounter
--- OUTSIDE RECORDS SUMMARY | 2024-01-12 10:58 | XMS_ITS | Encounter Summary ---
Author Organization [facility] [place] [address] Care Team Providers Care Special Needs Child Caregiver Name Role Phone Lolly Oliveira MD Primary Care Provider [phone] Encounter Details Date Type Department Care Team (Latest Contact Info) Description 04/21/2023 10:00 AM EST - 04/21/2023 11:59 PM EST Hospital Encounter Non-Invasive [place] [address] Discharge Disposition: Home Social History Tobacco Use [...] with spacer fluticasone propionate (Flonase) 50 mcg/actuation [place], Suspension 1 spray by Each Nare route [...] AM EST Hospital Encounter Non-Invasive [place] [address] Arrived documented as of [...] filedocumented in this encounter Care Teams Special Needs Child Caregiver Relationship Specialty Start Date End Date Lolly Oliveira MD [address] [place] [address] PCP - General 07/17/13 documented as of this encounter
--- OUTSIDE RECORDS SUMMARY | 2024-01-12 10:58 | XMS_ITS | Encounter Summary ---
Author Organization [facility] Address [facility] [place] [address] Care Team Providers Care Healthcare Prof Name Role Phone Lolly Oliveira MD Primary Care Provider [phone] Encounter Details Date Type Department Care Team (Late st Contact Info) Description 03/15/2023 Orders Only Cardiology at [address] [address] Lalit Mcmahon MD [facility] [place] [address] Nonischemic cardiomyopathy; Biventricular ICD (implantable cardioverter-defibrill ator) [...] AM EST Hospital Encounter Non[place] [address] Arrived documented as of this encounter Visit Diagnoses Diagnosis Nonischemic cardiomyopathy Other primary cardiomyopathies Biventricular ICD (implantable cardioverter-defibrillator) in place documented in this encounter Care Teams Healthcare Prof Relationship Specialty Start Date End Date Lolly Oliveira MD [address] [place] [address] PCP - General 07/17/13 documented as of this encounter
--- OUTSIDE RECORDS SUMMARY | 2024-01-12 10:58 | XMS_ITS | Encounter Summary ---
Author Organization [facility] Address [address] [place] [address] Care Team Providers Care Assistant Banquet Manager Name Role Phone Unavailable Primary Care Provider Unavailabl e Encounter Details Date Type Department Care Team (Late st Contact Info) Description 11/07/2008 Orders Only [facility] Laboratory Services - [facility] [address] [place] [address] Kenneth Parker MD [address] [place] [address] Social History Tobacco Use Types Packs/Day Years [...] ? LYLE, JING ? Accession #: ? [id number] ? : ? 1950 (Age: 58) ??F [...] Parker MD PATHOLOGY ORDERABLES Performing Organization Address City/State/[facility] Co de Phone Number [facility] [address] [place] [address] documented in this encounter Visit Diagnoses Not on filedocumented in this encounter
--- OUTSIDE RECORDS SUMMARY | 2024-01-12 10:58 | XMS_ITS | Encounter Summary ---
Author Organization [facility] [place] [address] Care Team Providers Care Review Nurse Name Role Phone Lolly Oliveira MD Primary Care Provider [phone] Encounter Details Date Type Department Care Team (Late st Contact Info) Description 05/18/2023 Refill Dermatology at [address] [address] Nora Mreedith LPN Social History Tobacco Use Types Packs/Day [...] patient. She voiced understanding. Order sent to [facility] drug. documented in this encounter Plan of Treatment Upcoming Encounters Date Type Department Care Team (Late st Contact Info) Description 01/16/2024 10:00 AM EST Hospital Encounter [place] [address] Arrived documented as of this encounter Visit Diagnoses Not on filedocumented in this encounter Care Teams Review Nurse Relationship Specialty Start Date End Date Lolly Oliveira MD [address] [place] [address] PCP - General 07/17/13 documented as of this encounter
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
--- OUTSIDE RECORDS SUMMARY | 2024-01-12 10:58 | XMS_ITS | Referral Summary ---
Author Organization [facility] Address [address] [place] [address] Care Team Providers Care Chain Splitter Name Role Phone Lolly Oliveira MD Primary Care Provider [phone] Social History Tobacco Use Types Packs/Day Years Used Date Smoking Tobacco: Never Assessed Sex and Gender Information Value Date Recorded Sex Assigned at Not on file Gender Identity Not on file Sexual Orientation Not on file Plan of Treatment Not on file Care Teams Chain Splitter Relationship Specialty Start Date End Date Lolly Oliveira MD [address] [place] [address] PCP - General 11/13/08
--- OUTSIDE RECORDS SUMMARY | 2024-01-12 10:58 | XMS_ITS | Encounter Summary ---
Author Organization [facility] Address [address] [place] [address] Care Team Providers Care Leasing Machine Tender Name Role Phone Lolly Oliveira MD Primary Care Provider [phone] Encounter Details Date Type Department Care Team (Late st Contact Info) Description 03/21/2019 Lab Requisition [facility] Pathology & Laboratory Medicine - [address] [address] Unknown, Provider, Social History Tobacco Use Types [...] - 911 pg/mL 03/22/2019 11:52 EST [facility] Blood VENOUS BLOOD / Unknown 03/16/2019 9:25 EST 03/21/2019 21:35 EST Provider Unknown CHEMISTRY & BLOOD GA S ORDERABLES [facility] [address] [place] [address] documented in this encounter Visit Diagnoses Not on filedocumented in this encounter Care Teams Leasing Machine Tender Relationship Specialty Start Date End Date Lolly Oliveira MD [address] [place] [address] PCP - General 11/13/08 documented as of this encounter
--- OUTSIDE RECORDS SUMMARY | 2024-01-12 10:58 | XMS_ITS | Clinical Summary ---
Author Organization [facility] Address [address] [place] [address] Care Team Providers Care Sugar Chipper Machine Operator Name Role Phone Lolly Oliveira MD Primary Care Provider [phone] Social History Tobacco Use Types Packs/Day Years [...] COVID-19 Vaccine ( season) 2023 Care Teams Sugar Chipper Machine Operator Relationship Specialty Start Date End Date Lolly Oilveira MD [address] [place], [place] [id number] PCP - General 11/13/08
--- OUTSIDE RECORDS SUMMARY | 2024-01-12 10:58 | XMS_ITS | Encounter Summary ---
Author Organization [facility] Address [address] [place] [address] Care Team Providers Care Power Plant Supervisor Name Role Phone Lolly Oliveira MD Primary Care Provider [phone] Encounter Details Date Type Department Care Team (Late st Contact Info) Description 03/06/2003 Results Only [facility] conversion [address] [place] [address] Lolly Oliveira MD [address] [place], [place] [id number] Social History Tobacco Use Types Packs/Day Years [...] de Phone Number [facility] [address] [place] [address] documented in this encounter Visit Diagnoses Not on filedocumented in this encounter Care Teams Power Plant Supervisor Relationship Specialty Start Date End Date Lolly Oliveira MD [address] [place] [address] PCP - General 11/13/08 documented as of this encounter
--- OUTSIDE RECORDS SUMMARY | 2024-01-12 10:58 | XMS_ITS | Clinical Summary ---
Author Organization [facility] [place] [address] Care Team Providers Care Ad Operations Coordinator Name Role Phone Lolly Oliveira MD Primary Care Provider [phone] Allergies Active Allergy Reactions Criticality Noted Date [...] spacer Active fluticasone propionate (Flonase) 50 mcg/actuation [place], Suspension 1 spray by Each Nare route [...] PM EDT Hospital Encounter [place] [address] Discharge Disposition: Home from Last [...] AM EST Hospital Encounter [place] [address] Arrived Health Maintenance Due Date Last Done [...] series) 11/07/2023 Medical Devices Implanted Type Area Currency Examiner Device Identifier Shelf Expiration Date Model / Serial / Lot Bsx: [id number]: 239399-3/18/2 023 Implanted: by Lalit Mcmahon MD (Quantity not on file) Defibrillator Chest Wall [employer] [id number] / [id number] / Bsx: [id number]: [id number]/18/2 023 Implanted: by Lalit Mcmahon MD (Quantity not on file) Lead Heart [employer] 4674 / [id number] / Bsx: [id number]: [id number] Implanted: by Lalit Mcmahon MD (Quantity not on file) Lead Heart [employer] 7841 / [id number] / Bsx: [id number]: 925654-3/18/2 023 Implanted: by Lalit Mcmahon MD (Quantity not on file) Lead Heart [employer] 0672 / [id number] / Procedures Procedure Name Priority Date/Time Associated [...] Status decision made by: Patient Care Teams Ad Operations Coordinator Relationship Specialty Start Date End Date Lolly Oliveira MD [address] [place] [address] PCP - General 07/17/13
--- OUTSIDE RECORDS SUMMARY | 2024-01-12 10:58 | XMS_ITS | Encounter Summary ---
Author Organization [facility] Address [facility] [place] [address] Care Team Providers Care Radiocommunications Technician Name Role Phone Lolly Oliveira MD Primary Care Provider [phone] Encounter Details Date Type Department Care Team (Late st Contact Info) Description 11/11/2022 Orders Only Cardiology at [address] [phone] Lalit Mcmahon MD [facility] [place] [address] Nonischemic cardiomyopathy Social History Tobacco Use Types [...] [facility] Hospital Encounter Non-Invasive [place] [address] Arrived documented as of this encounter Visit Diagnoses Diagnosis Nonischemic cardiomyopathy Other primary cardiomyopathies documented in this encounter Care Teams Radiocommunications Technician Relationship Specialty Start Date End Date Berrian, Lolly M, MD [address] [place] [address] PCP - General 07/17/13 documented as of this encounter
--- OUTSIDE RECORDS SUMMARY | 2024-01-12 10:58 | XMS_ITS | Encounter Summary ---
Author Organization [facility] [place] [address] Care Team Providers Care Saw Operator Name Role Phone Lolly Oliveira MD Primary Care Provider [phone] Reason for Visit * Reason Onset Date Comments Other 07/24/2022 Implanted Cardia c Device Teaching/Education Encounter Details Date Type Department Care Team (Late st Contact Info) Description 07/24/2022 Notes Only Cardiology at [address] [phone] Letha Arroyo Other (Implanted Cardiac Device Teaching/Education) Social History Tobacco Use Types Packs/Day Years Used Date Smoking Tobacco: Never Alcohol Use Standard Drinks/Week Comments Not Currently 0 (1 standard drink = 0.6 oz pur e alcohol) [facility] Inpatient Questions Answer Date Recorded [...] to call the Cardiac Device Clinic at [phone] with any questions. Plan: Post op check: [...] [facility] Hospital Encounter Non-[place] [address] Arrived documented as of this encounter Visit Diagnoses Not on filedocumented in this encounter Care Teams Saw Operator Relationship Specialty Start Date End Date Lolly Oliveira MD [address] [place] [address] PCP - General 07/17/13 documented as of this encounter
--- OUTSIDE RECORDS SUMMARY | 2024-01-12 10:58 | XMS_ITS | Encounter Summary ---
Author Organization [facility] Address [address] [place] [address] Care Team Providers Care Vice President Consulting Services Name Role Phone Lolly Oliveira MD Primary Care Provider [phone] Encounter Details Date Type Department Care Team (Late st Contact Info) Description 05/29/2002 [facility] [address] [place] [address] Silvia Diehl, [address] [place] [address] Social History Tobacco Use Types Packs/Day Years [...] ? JING MOTT ? Accession #: ? [id number] : ? 1950 (Age: 51) ??F ?Collect Date: ? 05/29/2002 Location: ? [facility] ? Receive Date: ? 05/31/2002 Provider: ?SILVIA DIEHL INFORMATION TECHNOLOGY SECURITY ANALYST Copy to: ? Specimen/Source: ?ThinPrep Pap [...] Report [facility] 05/29/2002 05/31/2002 Silvia Diehl INFORMATION TECHNOLOGY SECURITY ANALYST PATHOLOGY ORDERABLES [facility] [address] [place] [address] documented in this encounter Visit Diagnoses Not on filedocumented in this encounter Care Teams Vice President Consulting Services Relationship Specialty Start Date End Date Lolly Oliveira MD [address] [place] [address] PCP - General 11/13/08 documented as of this encounter
--- OUTSIDE RECORDS SUMMARY | 2024-01-12 10:59 | XMS_ITS | Encounter Summary ---
Author Organization [facility] [place] [address] Care Team Providers Care Material Mixer Name Role Phone Lolly Oliveira MD Primary Care Provider [phone] Reason for Referral * Diagnostic Test (Routine) - Closed Specialty Diagnoses / Procedures Referred By Contac t Referred To Contact Radiology Diagnoses Left bundle branch block Nonischemic cardiomyopathy Procedures MRI Cardiac Morphology Function With Flow Velocity Quantification wwo Contrast MRI Cardiac Morphology Function wwo Contrast Lalit Mcmahon MD [facility] [place] [address] [place] [address] Referral ID Status Reason Start Date Expiration Date V isits Requested Visits Authorized [id number] Closed Specialty Service Requested 05/06/2022 11/07/2023 2 1 Encounter Details Date Type Department Care Team (Late st Contact Info) Description 05/06/2022 Orders Only Cardiology at [address] [address] Lalit Mcmahon MD [facility] [place] [address] Left bundle branch block; Nonischemic cardiomyopathy Social [...] AM EST Hospital Encounter Non-Invasive [place] [address] Arrived documented as of this encounter Results [...] who have questions please contact the health student career development specialist that requested your imaging first. ? [...] patients who have questions please contactthe health student career development specialist that requested your imaging first. Lalit Mcmahon MD IMG MRI ORDERABLES documented in this encounter Visit Diagnoses Diagnosis Left bundle branch block Other left bundle branch block Nonischemic cardiomyopathy Other primary cardiomyopathies Left bundle branch block Other left bundle branch block Nonischemic cardiomyopathy Other primary cardiomyopathies documented in this encounter Care Teams Material Mixer Relationship Specialty Start Date End Date Lolly Oliveira MD [address] [place] [address] PCP - General 07/17/13 documented as of this encounter
--- OUTSIDE RECORDS SUMMARY | 2024-01-12 10:59 | XMS_ITS | Encounter Summary ---
[place] [address] Care Team Providers Care Warehouse Administrative Assistant Name Role Phone Lolly Oliveira [...] AM EST Hospital Encounter Non-[place] [address] Arrived documented as of this encounter Visit Diagnoses Not on filedocumented in this encounter Care Teams Warehouse Administrative Assistant Relationship Specialty Start Date End Date Lolly Oliveira MD [address] [place] [address] PCP - General 07/17/13 documented as of this encounter
--- OUTSIDE RECORDS SUMMARY | 2024-01-12 10:59 | XMS_ITS | Encounter Summary ---
[place] [address] Care Team Providers Care Instructor Ballroom Dancing Name Role Phone Lolly Oliveira MD Primary Care Provider [phone] Encounter Details Date Type Department Care Team (Late st Contact Info) Description 04/09/2022 Refill Dermatology at [address] [address] Nora Meredith, LOCKER ATTENDANT Social History Tobacco Use Types Packs/Day Years [...] [facility] Hospital Encounter [place] [address] Arrived documented as of this encounter Visit Diagnoses Not on filedocumented in this encounter Care Teams Instructor Ballroom Dancing Relationship Specialty Start Date End Date Lolly Oliveira MD [address] [place] [address] PCP - General 07/17/13 documented as of this encounter
--- OUTSIDE RECORDS SUMMARY | 2024-01-12 10:59 | XMS_ITS | Encounter Summary ---
[place] [address] Care Team Providers Care Salvage Worker Name Role Phone Lolly Oliveira MD Primary Care Provider [phone] Encounter Details Date Type Department Care Team [...] AM EST Hospital Encounter Non-[place] [address] Arrived documented as of this encounter Visit Diagnoses Not on filedocumented in this encounter Care Teams Salvage Worker Relationship Specialty Start Date End Date Lolly Oliveira MD [address] [place] [address] PCP - General 07/17/13 documented as of this encounter
--- OUTSIDE RECORDS SUMMARY | 2024-01-12 10:59 | XMS_ITS | Encounter Summary ---
Author Organization [facility] [place] [address] Care Team Providers Care Time Recorder Name Role Phone Lolly Oliveira MD Primary Care Provider [phone] Reason for Referral * Consultation (Routine) - Closed Specialty Diagnoses / Procedures Referred By Contact Referred To Contact Electrophysiology / Cardiology Diagnoses Left bundle branch block Cardiomyopathy, unspecified type AT MINIMUM PT NEEDS CONSIDERATION FOR DEFIBRILLATOR, ALSO CANDIDATE FOR RESYNCHRONIZATION THERAPY HER QRS IS >0.16 Lolly Oliveira MD [address] [place] [address] [facility] [address] [place] [phone] Referral ID Status Reason Start Date Expiration Date V isits Requested Visits Authorized [id number] Closed Consult, Test & Treat PCP Updated and/or Approved 04/30/2022 04/30/2023 6 6 Encounter Details Date Type Department Care Team (Latest Contact Info) Description 04/30/2022 Transcribe Orders eDH Incoming Referrals [phone] Lolly Oliveira MD [address] [place], [place] [id number] Left bundle branch block; Cardiomyopathy, unspecified type [...] EST Hospital Encounter Non-Invasive [place] [address] Arrived Scheduled Referrals Name Type Priority Associated Diagnoses Orde r Schedule Referral to Cardiology Outpatient Referral Routine Left bundle branch block Cardiomyopathy, Unspecified Type Ordered: 04/30/2022 documented as of this encounter Visit Diagnoses Diagnosis Left bundle branch block Other left bundle branch block Cardiomyopathy, unspecified type documented in this encounter Care Teams Time Recorder Relationship Specialty Start Date End Date Lolly Oliveira MD [address] [place] [address] PCP - General 07/17/13 documented as of this encounter
--- OUTSIDE RECORDS SUMMARY | 2024-01-12 10:59 | XMS_ITS | Encounter Summary ---
Author Organization [facility] [place] [address] Care Team Providers Care Machine Stone Polisher Name Role Phone Unavailable Primary Care Provider Unavailabl e Encounter Details Date Type Department Care Team (Late st Contact Info) Description 07/14/2013 External Results XRay at [address] [place] [address] Provider, Scanning Social History Tobacco Use Types [...] AM EST Hospital Encounter Non-Invasive Cardiology Lab [facility] [address] Arrived documented as of this encounter Procedures [...]
--- OUTSIDE RECORDS SUMMARY | 2024-01-12 10:59 | XMS_ITS | Encounter Summary ---
Author Organization [facility] [place] [address] Care Team Providers Care Electric Shovel Operator Name Role Phone Lolly Oliveira MD Primary Care Provider [phone] Reason for Referral * Diagnostic Test (Routine) - Closed Specialty Diagnoses / Procedures Referred By Contac t Referred To Contact Radiology Diagnoses Left bundle branch block Nonischemic cardiomyopathy Procedures MRI Cardiac Morphology Function With Flow Velocity Quantification [facility] Contrast MRI Cardiac Morphology Function wwo Contrast Lalit Mcmahon MD [facility] [address] [place] [address] Referral ID Status Reason Start Date Expiration Date V isits Requested Visits Authorized [id number] Closed Specialty Service Requested 05/06/2022 11/07/2023 2 1 Reason for Visit * Diagnostic Test (Routine) - Closed Specialty Diagnoses / Procedures Referred By Contac t Referred To Contact Radiology Diagnoses Left bundle branch block Nonischemic cardiomyopathy Procedures MRI Cardiac Morphology Function With Flow Velocity Quantification o Contrast MRI Cardiac Morphology Function wwo Contrast Lalit Mcmahon MD [facility] [place] [address] [place] [address] Referral ID Status Reason Start Date Expiration Date V isits Requested Visits Authorized [id number] Closed Specialty Service Requested 05/06/2022 11/07/2023 2 1 Encounter Details Date Type Department Care Team (Latest Contact Info) Description 07/14/2022 9:08 AM EDT Hospital Encounter MRI at [facility] [place] [phone] Lalit Mcmahon MD [facility] [place] [address] Left bundle branch block; Nonischemic cardiomyopathy Discharge [...] with spacer fluticasone propionate (Flonase) 50 mcg/actuation [place], Suspension 1 spray by Each Nare route [...] 1950 [address] [facility] [address] Female [phone] (home) No relevant phone numbers on file. Lolly Oliveira MD None Allergies Allergen Reactions ??? Sulfa (Sulfonamide Antibiotics) Date/Time of call: July 07, 2022/11:03 AM/ PREVIOUS MRI SCAN? HEIGHT: WEIGHT: SCHEDULED SCAN: MRI CARDIAC MORPHOLOGY FUNCTION WITH FLOW VELOCITY QUANTIFICATION WWO CONTRAST [[id number]] Order Questions Answers Where will study be performed? [facility] Radiology [120] SUBJECTIVE: Very Claustrophobic CAN [...] ( KV ) You must have a otr truck driver present when you check in. This patient has been informed that they require a otr truck driver to drive them home after this procedure. In the absence of a otr truck driver, IR will not be able to sedate for your scan. Pt verbalized understanding of these instructions during the pre-procedure education via phone. Yes Name of otr truck driver: Daughter Phone number: PRIOR SCAN DATE/S SEDATION TYPE SUCCESSFUL 07/14/22 MRI Cardiac Morphology Function with Flow Velocity Quantification wwo Contrast Ativan 1mg x 1 dose Pass Revised 08/03/17 documented in this encounter Plan of Treatment Upcoming Encounters Date Type Department Care Team (Late st Contact Info) Description 01/16/2024 10:00 AM [facility] Hospital Encounter [place] [address] Arrived documented as of this encounter Procedures [...] have questions please contact the health care assistant that requested your imaging first. ? Electronically signed by: Greyson Herron MD, [facility] ([phone]), at 07/15/2022 9:53 AM Narrative 07/15/2022 9:53 [...] who have questions please contactthe health care assistant that requested your imaging first. Lalit [...] mg documented in this encounter Care Teams Electric Shovel Operator Relationship Specialty Start Date End Date Lolly Oliveira MD [address] [place] [address] PCP - General 07/17/13 documented as of this encounter
--- OUTSIDE RECORDS SUMMARY | 2024-01-12 10:59 | XMS_ITS | Encounter Summary ---
Author Organization [facility] [place] [address] Care Team Providers Care Scale Attendant Name Role Phone Lolly Oliveira MD Primary Care Provider [phone] Reason for Visit * Reason Comments Follow-up Encounter Details Date Type Department Care Team (Late st Contact Info) Description 07/02/2022 8:00 AM EDT Office Visit Dermatology at [address] [phone] Clay Ramírez MD [address] [facility] [place] [address] Psoriasis, guttate Social History Tobacco Use Types [...] [facility] Hospital Encounter Non-[place] [address] Arrived documented as of this encounter Visit Diagnoses Diagnosis Psoriasis, guttate Other psoriasis documented in this encounter Care Teams Scale Attendant Relationship Specialty Start Date End Date Lolly Oliveira MD [address] [place] [address] PCP - General 07/17/13 documented as of this encounter
--- OUTSIDE RECORDS SUMMARY | 2024-01-12 10:59 | XMS_ITS | Encounter Summary ---
Author Organization [facility] [place] [address] Care Team Providers Care Chemical Plant Manager Name Role Phone Lolly Oliveira MD Primary Care Provider [phone] Reason for Visit * Reason Comments Follow-up Encounter Details Date Type Department Care Team (Late st Contact Info) Description 06/06/2021 8:45 AM EDT Office Visit Dermatology at [address] [address] Clay Ramírez MD [address] [facility] [place] [address] Psoriasis, guttate Social History Tobacco Use Types [...] [facility] Hospital Encounter Non-Invasive [place] [address] Arrived documented as of this encounter Visit Diagnoses Diagnosis Psoriasis, guttate Other psoriasis documented in this encounter Care Teams Chemical Plant Manager Relationship Specialty Start Date End Date Lolly Oliveira MD [address] [place] [address] PCP - General 07/17/13 documented as of this encounter
--- OUTSIDE RECORDS SUMMARY | 2024-01-12 10:59 | XMS_ITS | Encounter Summary ---
Author Organization [facility] [place] [address] Care Team Providers Care Employment Officer Name Role Phone Lolly Oliveira MD Primary Care Provider [phone] Reason for Visit * Reason Comments Psoriasis Encounter Details Date Type Department Care Team (Late st Contact Info) Description 04/09/2022 1:45 PM EST Office Visit Dermatology at [address] [address] Clay Ramírez MD [address] [facility] [place] [address] Psoriasis, guttate Social History Tobacco Use Types [...] Hospital Encounter Non-Invasive [place] [address] Arrived documented as of this encounter Visit Diagnoses Diagnosis Psoriasis, guttate Other psoriasis documented in this encounter Care Teams Employment Officer Relationship Specialty Start Date End Date Lolly Oliveira MD [address] [place] [address] PCP - General 07/17/13 documented as of this encounter
--- OUTSIDE RECORDS SUMMARY | 2024-01-12 10:59 | XMS_ITS | Encounter Summary ---
Author Organization Formerly [facility] [place] [address] Care Team Providers Care Director Of Midwifery/Staff Midwife Name Role Phone Lolly Oliveira MD Primary Care Provider [phone] Reason for Visit * Reason Comments Skin Check Encounter Details Date Type Department Care Team (Late st Contact Info) Description 11/23/2014 10:00 AM EDT Office Visit Dermatology at [address] [address] Clay Ramírez MD [address] [facility], [place] [address] Dermatofibroma; Nevus; Solar lentigo Discharge Disposition: Home [...] [facility] Non-Invasive [place] [address] Arrived documented as of this encounter Visit Diagnoses Diagnosis Dermatofibroma Benign neoplasm of skin, site unspecified Nevus Benign neoplasm of skin, site unspecified Solar lentigo Other dyschromia documented in this encounter Care Teams Director Of Midwifery/Staff Midwife Relationship Specialty Start Date End Date Lolly Oliveira MD [address] [place] [address] PCP - General 07/17/13 documented as of this encounter
--- OUTSIDE RECORDS SUMMARY | 2024-01-12 10:59 | XMS_ITS | Encounter Summary ---
Author Organization [place] [address] Care Team Providers Care Well Digger Name Role Phone Lolly Oliveira MD Primary Care Provider [phone] Encounter Details Date Type Department Care Team (Late st Contact Info) Description 06/29/2011 [place] [phone] Eleno Christian MD [facility] DIAG[place]ST[place] [address] Social History Tobacco Use Types Packs/Day Years [...] EST Hospital Encounter Non-Invasive [place] [address] Arrived documented as of this encounter Procedures [...] is a Non-reportable exam Eleno Christian MD [facility] ORD ERABLES documented in this encounter Visit Diagnoses Not on filedocumented in this encounter Care Teams Well Digger Relationship Specialty Start Date End Date Lolly Oliveira MD [address] [place] [address] PCP - General 07/17/13 documented as of this encounter
--- OUTSIDE RECORDS SUMMARY | 2024-01-12 10:59 | XMS_ITS | Encounter Summary ---
Author Organization [facility] [place] [address] Care Team Providers Care Paper Hanger Name Role Phone Lolly Oliveira MD Primary Care Provider [phone] Encounter Details Date Type Department Care Team (Latest Contact Info) Description 07/17/2013 8:40 AM EDT - 07/17/2013 11:59 PM EDT Hospital Encounter XRay at [address] [place] [phone] CLINIC, DR [facility] Discharge Disposition: Home Social [...] AM EST Hospital Encounter Non-Invasive [place] [address] Arrived documented as of this encounter Visit Diagnoses Not on filedocumented in this encounter Care Teams Paper Hanger Relationship Specialty Start Date End Date Lolly Oliveira MD [address] [place] [address] PCP - General 07/17/13 documented as of this encounter
--- OUTSIDE RECORDS SUMMARY | 2024-01-12 10:59 | XMS_ITS | Encounter Summary ---
[place] [address] Care Team Providers Care Professor Of Kinesiology Name Role Phone Lolly Oliveira MD Primary Care Provider [phone] Encounter Details Date Type Department Care Team [...] AM EST Hospital Encounter Non[place] [address] Arrived documented as of this encounter Visit Diagnoses Not on filedocumented in this encounter Care Teams Professor Of Kinesiology Relationship Specialty Start Date End Date Lolly Oliveira MD [address] [place] [address] PCP - General 07/17/13 documented as of this encounter
--- OUTSIDE RECORDS SUMMARY | 2024-01-12 10:59 | XMS_ITS | Encounter Summary ---
[place] [address] Care Team Providers Care Labor Relations Analyst Name Role Phone Lolly Oliveira MD Primary Care Provider [phone] Encounter Details Date Type Department Care Team (Late st Contact Info) Description 07/17/2013 [place] [phone] Lolly Oliveira MD [address] [place], [place] [id number] Social History Tobacco Use Types Packs/Day Years [...] AM EST Hospital Encounter Non-Invasive [place] [phone] Arrived documented as of this encounter Procedures Procedure Name Priority Date/Time Associated Diagnosis Comments REQUEST FOR 2ND READ MAMMO Routine 07/17/2013 8:45 AM EDT documented in this encounter Results * Request for 2nd read Mammo (07/17/2013 8:45 AM EDT) Anatomical Region Laterality Modality Other 07/17/2013 8:45 AM EDT Narrative 07/17/2013 3:57 PM EDT INTERPRETATION OF OUTSIDE MAMMOGRAMS (PERFORMED ON 07/06/13 AND 07/14/13) FROM [facility] DATED 07/17/13: ?? DIAGNOSTIC IMAGING SUMMARY: [...] OUTSIDE MAMMOGRAMS (PERFORMED ON 07/06/13 AND 07/14/13) [facility] DATED 07/17/13: DIAGNOSTIC [...] filedocumented in this encounter Care Teams Labor Relations Analyst Relationship Specialty Start Date End Date Lolly Oliveira MD [address] [place] [address] PCP - General 07/17/13 documented as of this encounter
--- OUTSIDE RECORDS SUMMARY | 2024-01-12 10:59 | XMS_ITS | Encounter Summary ---
Author Organization [facility] [place] [address] Care Team Providers Care Rackman Name Role Phone Lolly Oliveira MD Primary Care Provider [phone] Encounter Details Date Type Department Care Team (Latest Contact Info) Description 07/26/2013 9:44 AM EDT - 07/26/2013 11:59 PM EDT Hospital Encounter [place] [phone] CLINIC, Lolly So MD [address] [place], [place] [id number] Mammographic microcalcification Discharge Disposition: Home Social History [...] AM EST Hospital Encounter Non[place] [address] Arrived documented as of this encounter Procedures [...] are present on specimen digital X-ray. A [employer]-Stereo 13 Cylinder marker clip was placed. Cranio-caudal [...] mLs documented in this encounter Care Teams Rackman Relationship Specialty Start Date End Date Lolly Oliveira MD [address] [place] [address] PCP - General 07/17/13 documented as of this encounter
--- OUTSIDE RECORDS SUMMARY | 2024-01-12 10:59 | XMS_ITS | Encounter Summary ---
Author Organization [facility] Address [facility] [place] [address] Care Team Providers Care Live In Housekeeper Nanny Name Role Phone Lolly Oliveira MD Primary Care Provider [phone] Encounter Details Date Type Department Care Team (Late st Contact Info) Description 07/16/2022 Telephone Cardiology at [address] [phone] Lalit Mcmahon MD [facility] [place] [address] Social History Tobacco Use Types Packs/Day Years [...] her nonischemic cardiomyopathy. She is scheduled for IMMIGRATION SERVICES OFFICER-D implantation next week and looks forward to the procedure. We will see each other next week. Lalit Mcmahon MD [facility] Cardiac Electrophysiology 07/16/2022 8:52 AM documented in this encounter Plan of Treatment Upcoming Encounters Date Type Department Care Team (Late st Contact Info) Description 01/16/2024 10:00 AM EST Hospital Encounter Non-Invasive [place] [address] Arrived documented as of this encounter Visit Diagnoses Not on filedocumented in this encounter Care Teams Live In Housekeeper Nanny Relationship Specialty Start Date End Date Lolly Oliveira MD [address] [place] [address] PCP - General 07/17/13 documented as of this encounter
--- OUTSIDE RECORDS SUMMARY | 2024-01-12 10:59 | XMS_ITS | Encounter Summary ---
Author Organization Formerly [facility] [place] [address] Care Team Providers Care Neurology Tech Name Role Phone Lolly Oliveira MD Primary Care Provider [phone] Reason for Visit * Reason Comments Follow-up Encounter Details Date Type Department Care Team (Late st Contact Info) Description 05/21/2022 8:00 AM EDT Office Visit Dermatology at [address] [phone] Clay Ramírez MD [address] [facility], [place] [address] Psoriasis, guttate Social History Tobacco Use Types [...] [facility] Hospital Encounter Non-[place]vasive [place] [address] Arrived documented as of this encounter Visit Diagnoses Diagnosis Psoriasis, guttate Other psoriasis documented in this encounter Care Teams Neurology Tech Relationship Specialty Start Date End Date Lolly Oliveira MD [address] [place] [address] PCP - General 07/17/13 documented as of this encounter
--- OUTSIDE RECORDS SUMMARY | 2024-01-12 10:59 | XMS_ITS | Encounter Summary ---
Author Organization [facility] [place] [address] Care Team Providers Care Boat Hop Name Role Phone Lolly Oliveira MD Primary Care Provider [phone] Reason for Visit * Auth/Cert (Routine) Specialty Diagnoses / Procedures Referred By Contac t Referred To Contact Diagnoses Left bundle-branch block, unspecified Other cardiomyopathies Left bundle branch block [I44.7]Nonischemic cardiomyopathy [I42.8] Procedures PRG CATH PLMT LEFT HEART CATH & ARTS W/INJ & ANGIO IMG S&I ELECTROPHYSIOLOGY PROCEDURE Lalit Mcmahon MD [facility] [place] [address] [facility] Referral ID Status Reason Start Date Expiration Date Visits Re quested Visits Authorized [id number] 1 1 Encounter Details Date Type Department Care Team (Late st Contact Info) Description 07/23/2022 1:00 PM EDT - 07/23/2022 5:30 PM EDT Surgery [place] [address] Lalit Mcmahon MD [facility] [place] [address] ELECTROPHYSIOLOGY PROCEDURE Social History Tobacco Use Types [...] Luna Mott Patient Age: 71 y.o. Language: Haitian Race: White Ethnicity: Not nor Admit date: 07/23/2022 Discharge date and time: 07/24/22 Attending Physician: Lalit Mcmahon MD Discharge Physician: Lalit Mcmahon MD Follow-up Recommendations for Providers: - s/p ENVIRONMENTAL AID-D implant - post implant QRS 130 ms [...] ??? Solar lentigo Operations/Major Procedures: 07/23/22: [facility] ENVIRONMENTAL AID-D implant History of Presentation: 71 y.o. female with a history of HFrEF, LBBB, QRS >150, NYHA II who is POD#1 of ENVIRONMENTAL AID-D implant ([employer]). Hospital Course: Elective admission for ENVIRONMENTAL AID-D implant Admitted post-implant for pain management, telemetry [...] (heart failure with reduced ejection fraction) [I50.20] ENVIRONMENTAL AID-D implant Admission Condition: good Indication for Admission: [...] g Refills: 3 fluticasone propionate 50 mcg/actuation [place], Suspension Commonly known as: Flonase 1 spray [...] sure to use a cloth bleaching range back tender (such as a towel) in between [...] F. The office scheduling phone number is [phone]. ARM MOVEMENT RESTRICTIONS POST-IMPLANT - Do not [...] please call the Cardiac ElectrophysiologyTriage Nurse at [phone], option 3. General Instructions None Discharge References/Attachments [...] sure to use a cloth bleaching range back tender (such as a towel) in between [...] F. The office scheduling phone number is [phone]. ARM MOVEMENT RESTRICTIONS POST-IMPLANT - Do not [...] please call the Cardiac ElectrophysiologyTriage Nurse at [phone], option 3. documented in this encounter Medications [...] with spacer fluticasone propionate (Flonase) 50 mcg/actuation [place], Suspension 1 spray by Each Nare route [...] Cardiac Electrophysiology Post-Implant Device Interrogation Luna Mott [id number] 07/24/2022 History: Luna Mott is a 71 y.o. female with a history of HFrEF, LBBB, QRS >150, NYHA II who is POD#1 of ENVIRONMENTAL AID-D implant ([employer]). Overall feels well this morning. Ready [...] WOB Neuro- A&Ox3 Device Interrogation: Data ?? Extension Course Coordinator Model # Serial # Generator [employer] [id number] Atrial Lead [employer] [id number] [id number] RV Lead [employer] 0672 [id number] LV Lead [employer] 4674 [id number] ?? Diagnostics Pacing Mode: DDD 60-130 Underlying Rhythm: [place] Atrial Episodes: None Ventricular Episodes: None FINAL PROGRAMMING: Pacing: Mode Lower rate (ppm) Upper rate (ppm) ?? DDD 60 130 VF: Rate (bpm) #Antitachycardia pacing First shock energy (J) ?? 200 Quick convert 41 VT: 170 Monitor only Monitor only ? Battery and Leads Impedances (ohms) Sensing (mV) Thresholds HV RA RV LV RA RV LV RA RV LV 73 043 948 0106 (LVa) 7.7 13.1 >25 0.4V @ 0.4 ms 0.4V @ 0.4 ms 0.5 V @ 1.0 ms POD#1 CXR: All leads in nominal positioning Impression: 71 y.o. female who is s/p ENVIRONMENTAL AID-D implant for LBBB, NYHA II, HFrEF. - [...] ([facility]) Fadi Nunez MD 07/24/2022 Pager: [phone] I met with the patient today and [...] agreement. ? Dr. Lalit Mcmahon, electrophysiology attending ([id number]) * Zaria Wright RN - 07/23/2022 8:28 [...] HF, QRS > 150 ms presents for ENVIRONMENTAL AID-D placement. ROS: Denies recent fevers or chills [...] 0.9) flush 5 mL 5 mL Intravenous [id number] ramos MD ??? sodium chloride 0.9 % [...] HF, QRS > 150 ms presents for ENVIRONMENTAL AID-D placement. Backup would be LBBAP lead. Antibiotics: cefazolin Rationales for, intended benefits and potential risk of planned procedures reviewed. The patient indicated understanding and agreement with the plan. Informed consent signed. Procedure checklist completed. Fadi Nunez MD Cardiac Electrophysiology Fellow [facility] Pager [phone] 07/23/2022 I met with the patient today [...] agreement. ? Dr. Lalit Mcmahon, electrophysiology attending ([id number]) documented in this encounter Miscellaneous Notes * Brief Op Note - Lalit Mcmahon MD - 07/23/2022 4:04 PM EDT Brief Operative Note Patient Name: Luna Mott : [id number] MR#: [id number] Case Date: 07/23/2022 Surgeon: Surgeon(s) and Role: [...] EST Hospital Encounter Non-In[place] [address] Arrived Scheduled Orders Name Type Priority Associated Diagnoses Orde r Schedule EKG 12 Lead ECG Routine Cardiac resynchronization therapy defibrillator (ENVIRONMENTAL AID-D) in place One Time for 1 Occurrences [...] (Bezet) 522 ms MUSE SYSTEM Calculated R Forreston 78 degrees MUSE SYSTEM Calculated T Forreston -71 degrees MUSE SYSTEM INTERPRETATION AV dual-paced [...] have questions please contact the health care process manager that requested your imaging first. ? Electronically signed by: Kwame Vargas MD, [facility] ([phone]), at 07/24/2022 6:43 AM Narrative 07/24/2022 6:43 [...] who have questions please contactthe health care process manager that requested your imaging first. Electronically signed by: Kwame Vargas MD, [facility]([phone]), at 07/24/2022 6:43 AM Lalit Mcmahon MD IMG DX ORDERABLES * ELECTROPHYSIOLOGY PROCEDURE (07/23/2022 1:11 PM EDT) Anatomical Region Laterality Modality Other Narrative 07/23/2022 4:24 PM EDT Table formatting from the original result was not included. BIVENTRICULAR ICD IMPLANTATION Business Analyst Manager: Lalit Mcmahon MD Fellow: Fadi Nunez [...] lateral branch of the CS in the SURINAMESE view. This branch was cannulated with a [...] the entire procedure. LEAD AND GENERATOR DATA: Extension Course Coordinator Model # Serial # Generator [employer] [id number] Atrial Lead [employer] 7841 [id number] RV Lead [employer] 0672 [id number] LV Lead [employer] 4674 [id number] PACE/SENSE DATA: Sensed wave (mV) Threshold (V) [...] (cGycm2) 300 CONCLUSIONS: Successful implantation of a [employer] biventricular ICD for primary prevention and treatment of symptoms related to congestive heart failure. Follow up in EP clinic in 1-2 months. Procedures performed: new ICD system ( cpt 90026-B0); implant LV lead at time of ICD insertion (cpt 92307) I have read, edited and approve of this report: Lalit Mcmahon MD [facility] Cardiac Electrophysiology 07/23/2022 4:22 PM Procedure Note Lalit Mcmahon MD - 07/23/2022 BIVENTRICULAR ICD IMPLANTATION Business Analyst Manager: Lalit Mcmahon MD Fellow: Fadi Nunez [...] appropriate lateralbranch of the CS in the SURINAMESE view. This branch was cannulated with a [...] in the entireprocedure. LEAD AND GENERATOR DATA: Extension Course Coordinator Model # Serial # Generator [employer] [id number] Atrial Lead [employer] 7841 [id number] RV Lead [employer] 0672 [id number] LV Lead [employer] 4674 267130 PACE/SENSE DATA: Sensed wave (mV) Threshold (V) [...] (cGycm2) 300 CONCLUSIONS: Successful implantation of a [employer] biventricular ICD forprimary prevention and treatment of symptoms related to congestive heartfailure. Follow up in EP clinic in 1-2 months. Procedures performed: new ICD system ( cpt 38367-M0); implant LV lead attime of ICD insertion (cpt 51125) I have read, edited and approve of [...] [facility] [place]/ZIP Co de Phone Number [facility] [place] [address] * EKG 12 Lead (07/23/2022 12:33 PM EDT) Ventricular rate 72 BPM MUSE SYSTEM Atrial Rate 72 BPM MUSE SYSTEM P-R Interval 158 ms MUSE SYSTEM QRS Duration 176 ms MUSE SYSTEM Q-T Interval 458 ms MUSE SYSTEM QTC Calculated (Bezet) 501 ms MUSE SYSTEM Calculated P [place] 34 degrees MUSE SYSTEM Calculated R [place] 12 degrees MUSE SYSTEM Calculated T Forreston -173 degrees MUSE SYSTEM INTERPRETATION Normal sinus rhythm Left bundle branch block Abnormal ECG No previous ECGs available Confirmed by MD Salome, Lalit ([id number]) on 07/23/2022 1:19:03 PM MUSE SYSTEM 07/23/2022 12:3 3 PM EDT 07/23/2022 1:19 PM EDT Lalit Mcmahon MD ECG ORDERABLES Performing Organization Address [facility]/ZIP Co de Phone Number MUSE SYSTEM * Differential, Automated (07/23/2022 11:55 AM EDT) Neutrophil % 62.6 % [facility] Neutrophil Absolute 4.14 1.70 - 6.10 x10(3)/[facility] LABORAT[facility] Lymph % 27.0 % [facility] Lymphocytes Abs 1.8 0.9 - 3.2 x10(3)/[facility] LABORATORY Monocyte % 7.3 % [facility] Monocyte Abs 0.5 0.3 - 0.9 x10(3)/[facility] LABORATORY Eos % 2.3 % [facility] Eosinophils Abs 0.2 0.0 - 0.4 x10(3)/[facility] LABORATORY Basophil % 0.6 % [facility] Baso Absolute 0.0 0.0 - 0.1 x10(3)/[facility] LABORATORY Immature Gran % 0.20 % [facility] Comment: Immature granulocytes(IG's)percentage and absolute count will include metamyelocytes, myelocytes, and promyelocytes. Blood smears from CBCs yielding IG's will be scanned manually for concordance. If this scan disagrees with the automated IG or if promyelocytes are noted, a manual differential will be performed. Immature Gran Absolute 0.01 0.00 - 0.04 x10(3)/[facility] LABORATORY Blood 07/23/2022 11:5 5 AM EDT 07/23/2022 12:07 PM EDT Narrative Resulting Agency Comment Spec In Lab Lalit Mcmahon MD HEMATOLOGY ORDERABLE S [facility] [place] [address] * Hemogram (07/23/2022 11:55 AM EDT) White Blood Cell 6.6 4.0 - 9.5 x10(3)/[facility] LABORATORY Red Blood Cell 4.50 4.00 - 5.21 x10(6)/[facility] LAB[facility]ATORY Hemoglobin 13.7 11.7 - 15.5 g/dL [facility] Hematocrit 42.5 35.7 - 45.8 % [facility] Mean Cell Volume 94.4 82.6 - 94.4 fL [facility] Mean Cell Hemoglobin 30.4 27.1 - 32.0 pg [facility] Mean Cell Hemoglobin Concentration 32.2 31.7 - 35.0 g/dL [facility] Platelet 193 145 - 357 x10(3)/[facility] LABORATORY RDW Standard Deviation 45.5 37.0 - 46.0 fL [facility] RDW coefficient of variation 13.2 11.5 - 14.1 % [facility] Mean Platelet Volume 9.5 7.6 - 12.9 fL [facility] NRBC% auto 0.0 % [facility] NRBC Absolute 0.000 0.000 - 0.000 x10(3)/[facility] LABORATORY Blood 07/23/2022 11:5 5 AM EDT 07/23/2022 12:07 PM EDT Narrative Resulting Agency Comment Spec In Lab Lalit Mcmahon MD HEMATOLOGY ORDERABLE S [facility] [place] [address] * (ABNORMAL) BMP w/fasting Glucose (07/23/2022 11:55 AM EDT) Glucose Fasting 110(H) 65 - 99 mg/dL [facility] Comment: ?Fasting* Glucose Interpretive Criteria [...] of Diabetes Mellitus, Position Statement from the [place] [employer]. ??Diabetes Care, Volume 33, Supplement 1, Mar 2009 Blood Urea Nitrogen 23(H) 8 - 18 mg/dL [facility] Creatinine 1.07 0.70 - 1.20 mg/dL [facility] Sodium 141 135 - 145 mmol/L [facility] Potassium 4.8 3.5 - 5.0 mmol/L [facility] Comment: Please note: ??Patients with [...] 5 - 15 mmol/L [facility] Calcium 9.7 8.5 - 10.5 mg/dL [facility] Est Glomerular Filtration Rate 55(L) [...] Mcmahon MD CHEMISTRY ORDERABLES Performing Organization Address [facility] Co de Phone Number [facility] [place] [address] * Prothrombin Time (07/23/2022 11:55 AM EDT) Prothrombin Time 11.7 9.4 - 12.5 sec [facility] International Normalization Ratio 1.0 [facility] Comment: An INR <2.0 indicates [...] Performing Organization Address City/[facility] Co de Phone Number [facility] [place] [address] documented in this encounter Visit Diagnoses Diagnosis HFrEF (heart failure with reduced ejection fraction)- Primary Left bundle branch block Other left bundle branch block Nonischemic cardiomyopathy Other primary cardiomyopathies Cardiac resynchronization therapy defibrillator (ENVIRONMENTAL AID-D) in place Left bundle branch block Other [...] Routine documented in this encounter Care Teams Boat Hop Relationship Specialty Start Date End Date Lolly Oliveira MD [address] [place] [address] PCP - General 07/17/13 documented as of this encounter
--- OUTSIDE RECORDS SUMMARY | 2024-01-12 10:59 | XMS_ITS | Encounter Summary ---
Author Organization [facility] [place] [address] Care Team Providers Care Insurance Adjuster Name Role Phone Lolly Oliveira MD Primary Care Provider [phone] Reason for Visit * Reason Onset Date Comments Pre Procedure Call 07/01/2022 Encounter Details Date Type Department Care Team (Late st Contact Info) Description 07/01/2022 Telephone Cardiology at [address] [phone] Rosenda Sutton RN Pre Procedure Call Social History Tobacco Use Types Packs/Day Years Used Date Smoking Tobacco: Never Sex and Gender Information Value Date Recorded Sex Assigned at Not on file Gender Identity Not on file Sexual Orientation Not on file documented as of this encounter Miscellaneous Notes * Telephone Encounter - Rosenda Sutton RN - 07/01/2022 9:30 AM EDTSummary: Pre Procedure Call: CAMPUS ADMINISTRATIVE ASSISTANT implant EP POWER TONG OPERATOR COORDINATION CHECKLIST Patient Name: Luna Mott Patient Performing Extension Work Instructor: Lalit Mcmahon Referring Provider: Lolly Oliveira Date of Procedure: 07/23/22 Arrival Time/ Case Time: 12:00 pm / 1:00 pm Check In Location: Chief Credit Officer Desk 4W Date Patient was Called: 07/01/22 Procedure: CAMPUS ADMINISTRATIVE ASSISTANT Company: [employer] Type: CAMPUS ADMINISTRATIVE ASSISTANT-D Laterality: LEFT Orders: Yes Lab Orders: Yes [...] overnight , understands that they will need recycling collections driver on day of discharge Notified pt that Goff catheter may be placed on day of procedure depending on type & duration of case. documented in this encounter Plan of Treatment Upcoming Encounters Date Type Department Care Team (Late st Contact Info) Description 01/16/2024 10:00 AM [facility] Hospital Encounter [place] [address] Arrived documented as of this encounter Visit Diagnoses Not on filedocumented in this encounter Care Teams Insurance Adjuster Relationship Specialty Start Date End Date Lolly Oliveira MD [address] [place] [address] PCP - General 07/17/13 documented as of this encounter
--- OUTSIDE RECORDS SUMMARY | 2024-01-12 10:59 | XMS_ITS | Encounter Summary ---
[place] [address] Care Team Providers Care Applied Research Director Name Role Phone Lolly Oliveira MD Primary Care Provider [phone] Encounter Details Date Type Department Care Team (Latest Contact Info) Description 07/26/2013 9:45 AM EDT - 07/26/2013 11:59 PM EDT Hospital En[place] [address] Mammographic microcalcification Social History Tobacco Use Types [...] Hospital Encounter [place] [address] Arrived documented as of this encounter Procedures Procedure Name Priority Date/Time Associated Diagnosis Comments SURGICAL PATHOLOGY REPORT Routine 07/26/2013 12:12 PM EDT MAMMO SPECIMEN IMAGING DURING BIOPSY Routine 07/26/2013 11:58 AM EDT Mammographic microcalcification documented in this encounter Results * Surgical Pathology Report (07/26/2013 12:12 PM EDT) Final Diagnosis ? [facility] ? Provider: ?? ELENO CHRISTIAN ?? Pt. Name: ?? JING ALVARENGA ? Acc #: ?[id number] ?Pt. ? Col Date: ?? 07/26/2013 ? [...] Partially fragmented, fibrofatty needle core biopsies. ? [facility] ? Provider: ?? ELENO CHRISTIAN ?? Pt. Name: ?? JING ALVARENGA ? Acc #: ?[id number] ?Pt. ? Col Date: ?? 07/26/2013 ? [...] Performing Organization Address City/State/[facility] Co sc Phone Number [facility] [address] * Mammo Specimen Imaging During Biopsy (07/26/2013 [...] microcalcification documented in this encounter Care Teams Applied Research Director Relationship Specialty Start Date End Date Lolly Oliveira MD [address] [place] [address] PCP - General 07/17/13 documented as of this encounter
--- OUTSIDE RECORDS SUMMARY | 2024-01-12 10:59 | XMS_ITS | Encounter Summary ---
Author Organization [facility] [place] [address] Care Team Providers Care Kettle Cleaner Name Role Phone Lolly Oliveira MD Primary Care Provider [phone] Encounter Details Date Type Department Care Team (Late Contact Info) Description 01/14/2022 Telephone Dermatology at [address] [address] Nora Meredith LPN Social History [...] AM EST Hospital Encounter Non-[place] [address] Arrived documented as of this encounter Visit Diagnoses Not on filedocumented in this encounter Care Teams Kettle Cleaner Relationship Specialty Start Date End Date Lolly Oliveira MD [address] [place] [address] PCP - General 07/17/13 documented as of this encounter
--- OUTSIDE RECORDS SUMMARY | 2024-01-12 10:59 | XMS_ITS | Encounter Summary ---
Author Organization [facility] [place] [address] Care Team Providers Care Hide Dropper Name Role Phone Unavailable Primary Care Provider Unavailabl e Encounter Details Date Type Department Care Team (Late st Contact Info) Description 07/14/2013 [place] [phone] [facility] [place] [address] Social History Tobacco Use Types Packs/Day Years [...] AM EST Hospital Encounter Non-Invasive [place] [address] Arrived documented as of this encounter Visit Diagnoses Not on filedocumented in this encounter
--- OUTSIDE RECORDS SUMMARY | 2024-01-12 10:59 | XMS_ITS | Encounter Summary ---
Author Organization [facility] [place] [address] Care Team Providers Care Firestopper Technician Name Role Phone Lolly Oliveira MD Primary Care Provider [phone] Encounter Details Date Type Department Care Team (Latest Contact Info) Description 07/26/2013 9:45 AM EDT - 07/26/2013 11:59 PM EDT Hospital En[place] [address] Mammographic microcalcification Social History Tobacco Use Types [...] AM EST Hospital Encounter Non-Invasive [place] [address] Arrived documented as of this encounter Procedures [...] microcalcification documented in this encounter Care Teams Firestopper Technician Relationship Specialty Start Date End Date Lolly Oliveira MD [address] [place] [address] PCP - General 07/17/13 documented as of this encounter
--- OUTSIDE RECORDS SUMMARY | 2024-01-12 10:59 | XMS_ITS | Encounter Summary ---
Author Organization [facility] [place] [address] Care Team Providers Care Utility Plant Operative Name Role Phone Lolly Oliveira MD Primary Care Provider [phone] Encounter Details Date Type Department Care Team (Late st Contact Info) Description 07/26/2013 [place] [address] Eleno Christian MD [facility] [place] [address] Social History Tobacco Use Types Packs/Day Years [...] Hospital Encounter Non[place] [address] Arrived documented as of this encounter Visit Diagnoses Not on filedocumented in this encounter Care Teams Utility Plant Operative Relationship Specialty Start Date End Date Lolly Oliveira MD [address] [place] [address] PCP - General 07/17/13 documented as of this encounter
--- OUTSIDE RECORDS SUMMARY | 2024-01-12 10:59 | XMS_ITS | Encounter Summary ---
Author Organization [facility] [place] [address] Care Team Providers Care Seo Consultant Name Role Phone Lolly Oliveira MD Primary Care Provider [phone] Encounter Details Date Type Department Care Team (Latest Contact Info) Description 07/20/2013 9:26 AM EDT - 07/20/2013 11:59 PM EDT Hospital En[place] [address] CLINIC, Lolly So MD [address] [place], [place] [id number] Mammographic microcalcification Discharge Disposition: Home Social History [...] AM EST Hospital Encounter Non-[place] [address] Arrived documented as of this encounter Procedures [...] not layer and, therefore, are not patient services representative of milk of calcium. Again, [...] not layer and, therefore, are not patient services representative of milk of calcium. Again, these have an amorphous andpunctate appearance and remain indeterminate. Stereotactic guided biopsy isrecommended. Alia Fraire MD IMG MAMMO ORDERABLES documented in this encounter Visit Diagnoses Diagnosis Mammographic microcalcification documented in this encounter Care Teams Seo Consultant Relationship Specialty Start Date End Date Lolly Oliveira MD [address] [place] [address] PCP - General 07/17/13 documented as of this encounter
--- OUTSIDE RECORDS SUMMARY | 2024-01-12 10:59 | XMS_ITS | Encounter Summary ---
Author Organization [place] [address] Care Team Providers Care Nutrition Educator Name Role Phone Unavailable Primary Care Provider Unavailabl e Encounter Details Date Type Department Care Team (Late st Contact Info) Description 07/04/2012 [place] [phone] Eleno Christian MD [facility] DIAGNOSTIC [place] [address] Social History Tobacco Use Types Packs/Day Years [...] AM EST Hospital Encounter Non-[place] [address] Arrived documented as of this encounter Procedures [...]
--- OUTSIDE RECORDS SUMMARY | 2024-01-12 10:59 | XMS_ITS | Encounter Summary ---
Author Organization [facility] [place] [address] Care Team Providers Care Inhalation Therapy Aide Name Role Phone Lolly Oliveira MD Primary Care Provider [phone] Encounter Details Date Type Department Care Team (Late st Contact Info) Description 04/01/2021 3:30 PM EST Office Visit Dermatology at [address] [phone] Clay Ramírez MD [address], [place] [address] Psoriasis, guttate Social History Tobacco Use Types [...] AM EST Hospital Encounter Non-Invasive [place] [address] Arrived documented as of this encounter Visit Diagnoses Diagnosis Psoriasis, guttate Other psoriasis documented in this encounter Care Teams Inhalation Therapy Aide Relationship Specialty Start Date End Date Lolly Oliveira MD [address] [place] [address] PCP - General 07/17/13 documented as of this encounter
--- OUTSIDE RECORDS SUMMARY | 2024-01-12 10:59 | XMS_ITS | Encounter Summary ---
Author Organization [facility] [place] [address] Care Team Providers Care Fine Unhairer Name Role Phone Lolly Oliveira MD Primary Care Provider [phone] Reason for Visit * Diagnostic Test (Routine) - Closed Specialty Diagnoses / Procedures Referred By Contac t Referred To Contact Radiology Diagnoses Left bundle branch block Nonischemic cardiomyopathy Procedures MRI Cardiac Morphology Function With Flow Velocity Quantification wwo Contrast MRI Cardiac Morphology Function wwo Contrast Lalit Mcmahon MD [facility] [address] [facility] [place] [address] Referral ID Status Reason Start Date Expiration Date V isits Requested Visits Authorized [id number] Closed Specialty Service Requested 05/06/2022 11/07/2023 2 1 Encounter Details Date Type Department Care Team (Latest Contact Info) Description 07/14/2022 9:09 AM EDT - 07/14/2022 11:59 PM EDT Hospital [place] [address] Lalit Mcmahon MD [facility] [place] [address] Discharge Disposition: Home Social History Tobacco Use [...] with spacer fluticasone propionate (Flonase) 50 mcg/actuation [place], Suspension 1 spray by Each Nare route [...] AM EST Hospital Encounter Non[place] [address] Arrived documented as of this [...] mLs documented in this encounter Care Teams Fine Unhairer Relationship Specialty Start Date End Date Lolly Oliveira MD [address] [place] [address] PCP - General 07/17/13 documented as of this encounter
--- OUTSIDE RECORDS SUMMARY | 2024-01-12 10:59 | XMS_ITS | Encounter Summary ---
Author Organization [facility] [place] [address] Care Team Providers Care Consumer Insights Specialist Name Role Phone Lolly Oliveira MD Primary Care Provider [phone] Encounter Details Date Type Department Care Team (Latest Contact Info) Description 07/18/2013 [place] [phone] Alia Fraire MD [facility] [place] [address] Mammographic microcalcification (Primary Dx) Social History Tobacco [...] AM EST Hospital Encounter Non-[place] [address] Arrived documented as of this encounter Results [...] are present on specimen digital X-ray. A [employer] Eviva-Stereo 13 Cylinder marker clip was placed. [...] calcifications are present on specimendigital X-ray. A [employer] Eviva-Stereo 13 Cylinder marker clip was placed. [...] does not layer and, therefore, are not field sales representative of milk of calcium. Again, [...] does not layer and, therefore, are not field sales representative of milk of calcium. Again, these have an amorphous andpunctate appearance and remain indeterminate. Stereotactic guided biopsy isrecommended. Alia Fraire MD IMG MAMMO ORDERABLES documented in this encounter Visit Diagnoses Diagnosis Mammographic microcalcification- Primary Mammographic microcalcification Mammographic microcalcification Mammographic microcalcification Mammographic microcalcification documented in this encounter Care Teams Consumer Insights Specialist Relationship Specialty Start Date End Date Lolly Oliveira MD [address] [place] [address] PCP - General 07/17/13 documented as of this encounter
--- OUTSIDE RECORDS SUMMARY | 2024-01-12 10:59 | XMS_ITS | Encounter Summary ---
[place] [address] Care Team Providers Care Time Study Technician Name Role Phone Lolly Oliveira MD Primary Care Provider [phone] Encounter Details Date Type Department Care Team [...] AM EST Hospital Encounter Non-[place] [address] Arrived documented as of this encounter Visit Diagnoses Not on filedocumented in this encounter Care Teams Time Study Technician Relationship Specialty Start Date End Date Lolly Oliveira MD [address] [place] [address] PCP - General 07/17/13 documented as of this encounter
--- OUTSIDE RECORDS SUMMARY | 2024-01-12 10:59 | XMS_ITS | Encounter Summary ---
Author Organization [facility] Address [facility] [place] [address] Care Team Providers Care Piano Player Name Role Phone Lolly Oliveira MD Primary Care Provider [phone] Reason for Visit * Auth/Cert (Routine) Specialty Diagnoses / Procedures Referred By Contac t Referred To Contact Diagnoses Left bundle-branch block, unspecified Other cardiomyopathies Left bundle branch block [I44.7]Nonischemic cardiomyopathy [I42.8] Procedures PRG CATH PLMT LEFT HEART CATH & ARTS W/INJ & ANGIO IMG S&I ELECTROPHYSIOLOGY PROCEDURE Lalit Mcmahon MD [facility] [address] [facility] Referral ID Status Reason Start Date Expiration Date Visits Re quested Visits Authorized [id number] 1 1 Encounter Details Date Type Department Care Team (Late st Contact Info) Description 07/23/2022 1:08 PM EDT Anesthesia Event [place] [address] Monae Gonzalez MD [facility] [place] [address] Maria Elena Snyder CRNA [facility] [place] [address] Anesthesia Record Procedure Summary Procedure Name Responsible [...] 1307; median cubital vein (antecubital fossa), right; sbtg-mim-czkcnk catheter system; Anatomical Landmarks; 20 gauge; 07/24/22; [...] 1343; metacarpal vein (top of hand), left; johf-ucl-pipykl catheter system; Anatomical Landmarks; US Not Used; [...] Date: 07/23/22 Room / Location: [facility] A-LAB ROOM 3 / [facility] EP LABS Anesthesia Start: 1308 Anesthesia Stop: 1633 Procedure: ELECTROPHYSIOLOGY PROCEDURE (Left) Diagnosis: Left bundle branch block Nonischemic cardiomyopathy (Left bundle branch block [I44.7]Nonischemic cardiomyopathy [I42.8]) Providers: Lalit Mcmahon MD Responsible Provider: Monae Gonzalez MD Anesthesia Type: general ASA Status: 4 All Anesthesia Providers: Anesthesiologist: Monae Gonzalez MD; Dominique Sen MD SALES AND MARKETING ADMINISTRATOR: Maria Elena Snyder CRNA Vitals Value Taken Time BP 131/46 07/23/22 1700 Temp 36.7 ??C (98.1 ??F) 07/23/22 1627 Pulse 67 07/23/22 1703 Resp 14 07/23/22 1703 SpO2 98 % 07/23/22 1703 Pain Level Vitals shown include unvalidated device data. Patient Location: PACU/[facility] Level of Consciousness: Conscious but [...] and Nonischemic CM (EF 15-20%)who presents for MAJOR DONOR COORDINATOR-D. No prior anesthetic records. Pt states that [...] daughter/son and patient who. Plan discussed with SALES AND MARKETING ADMINISTRATOR. Anesthesia Screening documented in this encounter Plan of Treatment Upcoming Encounters Date Type Department Care Team (Late st Contact Info) Description 01/16/2024 10:00 AM [facility] Hospital Encounter [place] [address] Arrived documented as of this [...] mg documented in this encounter Care Teams Piano Player Relationship Specialty Start Date End Date Lolly Oliveira MD [address] [place] [address] PCP - General 07/17/13 documented as of this encounter
--- OUTSIDE RECORDS SUMMARY | 2024-01-12 10:59 | XMS_ITS | Encounter Summary ---
Author Organization [facility] [place] [address] Care Team Providers Care Dry Kiln Burner Name Role Phone Lolly Oliveira MD Primary Care Provider [phone] Encounter Details Date Type Department Care Team (Late st Contact Info) Description 10/09/2021 Telephone Dermatology at [address] [address] Nora Meredith LPN Social History [...] [facility] Encounter Non-Invasive [place] [address] Arrived documented as of this encounter Visit Diagnoses Not on filedocumented in this encounter Care Teams Dry Kiln Burner Relationship Specialty Start Date End Date Lolly Oliveira MD [address] [place] [address] PCP - General 07/17/13 documented as of this encounter
[2024-01-12 12:52] VITALS: BP 134/74; PULSE 70
[2024-01-14 11:05] VITALS: BP 141/67; PULSE 66
--- OUTSIDE RECORDS SUMMARY | 2024-01-14 11:06 | XMS_ITS | Encounter Summary ---
Author Organization [place] [address] Care Team Providers Care Shampoo Assistant Name Role Phone Lolly Oliveira MD Primary Care Provider [phone] Encounter Details Date Type Department Care Team (Late st Contact Info) Description 05/18/2023 Telephone Dermatology at [address] [address] Nora Meredith LPN Social History [...] [facility] [place] [address] Arrived documented as of this encounter Visit Diagnoses Not on filedocumented in this encounter Care Teams Shampoo Assistant Relationship Specialty Start Date End Date Lolly Oliveira MD [address] [place] [address] PCP - General 07/17/13 documented as of this encounter
--- OUTSIDE RECORDS SUMMARY | 2024-01-14 11:06 | XMS_ITS | Data Portability ---
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 Past Four Weeks, Was Someone Available To Help You If You Needed And Wanted Help? (For Example, If You [place] Very Nervous, Lonely, Or Blue; Got Sick And Had To Stay In Bed; Needed Someone To Talk To; Needed Help With Daily Chores; Or Needed Help Just Taking Care Of Yourself.) No- Not At All Information n ot available 05/21/2023 During The Past Four Weeks, What Was The Hardest Physical Activity You Could Do For At Least 2 Minutes? Moderate [email or web address] Information not available 05/21/2023 Can You Get To Places Out Of Walking Distance Without Help? (For Example, Can You Travel Alone On Buses Or Taxis, Or Drive Your Own Car?) Yes [email or web address] Information not available 05/21/2023 Can You Go Shopping For Groceries Or Clothes Without Someone? s Help? Yes [email or web address] Information not available 05/21/2023 Can You Prepare Your Own Meals? Yes [email or web address] Information not available 05/21/2023 Can You Do Your Housework Without Help? Yes nzeqztfz82 Information not available 05/21/2023 Because Of Any Health Problems, Do You Need The Help Of Another Person With Your Personal Care Needs Such As Eating, Bathing, Dressing, Or Getting Around The House? No [email or web address] Information not available 05/21/2023 Can You Handle Your Own Money Without Help? Yes [email or web address] Information not available 05/21/2023 Are You Having Difficulties Driving Your Car? No [email or web address] Information no t available 05/21/2023 Do You Always Fasten Your Seat Belt When You Are In A Car? Yes- Usually [email or web address] Information not available 05/21/2023 How Often During The Past Four Weeks Have You Been Bothered By Any Of The Following Problems? Falling Or Dizzy When Standing Up? Never [email or web address] Information not available 05/21/2023 Sexual Problems? Never [email or web address] Informat ion not available 05/21/2023 Trouble Eating Well? Sometimes [email or web address] Information not available 05/21/2023 Teeth Or Denture Problems? Sometimes [email or web address] Information not available 05/21/2023 Problems Using The Telephone? Never [email or web address] Information not available 05/21/2023 Tiredness Or Fatigue? Sometimes vadabmow15 Information not available 05/21/2023 Have You Had 2 Or More Falls Or Sustained An Injury With A Fall In The Last Year? No [email or web address] Information no t available 05/21/2023 Do You Have Difficulty With Walking Or Balance? No [email or web address] Information not available 05/21/2023 Do You Currently Use A Hearing Device? No [email or web address] Information not available 05/21/2023 Do You Currently Have Any Trouble With Your Vision? Yes wwfexujy69 Information no t available 05/21/2023 Do You Exercise For About 20 Minutes Three Or More Days A Week? Yes- Most Of The Time Information not available 05/21/2023 Are There Any Safety Concerns In Your Home (see Attached CDC Pamphlet)? No [email or web address] Information not available 05/21/2023 How Often Do You Have Trouble Taking Medicines The Way You Have Been Told To Take Them? I Always Take Them As Prescribed [email or web address] Information not available 05/21/2023 How Confident Are You That You Can Control And Manage Most Of Your Health Problems? Very Confident [email or web address] Information not available 05/21/2023 Do You Currently Have Any Difficulty With Your Hearing? No [email or web address] Information not available 05/21/2023 Date Of Most Recent SBINS 05/21/2023 [email or web address] Information not available 05/21/2023 What Was The [...] free, adsorbed 11/03/2018 completed Not Available [facility] 01/15/2023 04:53:39 Tdap 04/12/2007 completed Not Available [facility] 04:53:39 zoster live 06/16/2012 completed Not Available [facility] 01/15/2023 04:53:40 Pneumococcal conjugate PCV 13 09/17/2015 completed Not Available [facility] 01/15/2023 04:53:40 Influenza, high-dose, trivalent, PF 11/26/2017 completed Not Available [facility] 01/15/2023 04:53:41 Td(adult) unspecified formulation 09/30/1992 completed Not Available [facility] 01/15/2023 04:53:41 Influenza, split virus, trivalent, preservative 11/28/2015 completed Not Available [facility] 01/15/2023 04:53:41 Influenza, split virus, trivalent, preservative 01/04/2015 completed Not Available [facility] 01/15/2023 04:53:41 Influenza, split virus, quadrivalent, PF 12/21/2018 completed Not Available [facility] 01/15/2023 04:53:41 zoster recombinant 08/30/2018 completed Not Available [facility] 01/15/2023 04:53:42 zoster recombinant 01/26/2018 completed Not Available [facility] 01/15/2023 04:53:42 Influenza, high-dose, quadrivalent, PF 12/04/2020 completed Not Available [facility] 01/15/2023 04:53:43 Influenza, high-dose, quadrivalent, PF 12/11/2019 completed Not Available [facility] 01/15/2023 04:53:43 Influenza, high-dose, quadrivalent, PF 12/29/2021 completed Not Available [facility] 01/15/2023 04:53:43 COVID-19, mRNA, LNP-S, PF, 100 mcg/0.5mL dose or 50 mcg/0.25mL dose 07/09/2021 completed Not Available [facility] 01/15/2023 04:53:43 COVID-19 vaccine, vector-nr, rS-Ad26, PF, 0.5 mL 05/02/2020 completed Not Available [facility] 01/15/2023 04:53:44 SARS-COV-2 (COVID-19) vaccine, UNSPECIFIED 05/31/2020 completed Not Available [facility] 01/15/2023 04:53:44 SARS-COV-2 (COVID-19) vaccine, UNSPECIFIED 01/03/2021 completed Not Available [facility] 01/15/2023 04:53:44 pneumococcal polysaccharide PPV23 07/05/2014 completed Not Available [facility] 2022 04:53:45 Hep B, unspecified formulation 04/14/1993 completed Not Available [facility] 01/15/2023 04:53:45 Hep B, unspecified formulation 09/30/1992 completed Not Available [facility] 01/15/2023 04:53:46 Hep B, unspecified formulation 10/31/1992 completed Not Available [facility] 01/15/2023 04:53:46 influenza, unspecified formulation 12/11/2009 completed Not Available [facility] 01/15/2023 04:53:47 influenza, unspecified formulation 12/13/2012 completed Not Available [facility] 01/15/2023 04:53:47 influenza, unspecified formulation 12/18/2008 completed Not Available [facility] 01/15/2023 04:53:47 influenza, unspecified formulation 12/19/2010 completed Not Available [facility] 01/15/2023 04:53:47 influenza, unspecified formulation 12/30/2006 completed Not Available [facility] 01/15/2023 04:53:48 influenza, unspecified formulation 01/09/2014 completed Not Available [facility] 01/15/2023 04:53:48 influenza, unspecified formulation 01/26/2008 completed Not Available [facility] 01/15/2023 04:53:48 influenza, unspecified formulation 02/16/2012 completed Not Available [facility] 01/15/2023 04:53:48 Influenza, high-dose, quadrivalent, PF 12/17/2022 completed Not Available [facility] 03/19/2023 05:33:03 COVID-19, mRNA, LNP-S, PF, herminio-sucrose, 30 mcg/0.3 mL 12/28/2022 completed Not Available [facility] 03/19/2023 05:33:03 COVID-19, mRNA, LNP-S, bivalent, PF, 50 mcg/0.5 mL or 25mcg/0.25 mL dose 12/01/2023 completed DENYS Bauer, [facility] 12/20/2023 15:23:33 Respiratory syncytial virus (RSV) vaccine, unspecified 12/01/2023 completed DENYS Bauer, [facility] 12/20/2023 15:24:29 influenza, unspecified formulation 12/01/2023 completed DENYS Bauer [facility] 12/20/2023 15:25:14 Past Encounters Encounter ID Performer Location Encounter Start Date Encounter Closed Date Diagnosis/Indication Diagnosis SNOMED-CT Code Diagnosis ICD10 Code [id number] LOLLY CORTEZ MD [address] [address] 05/21/2023 10:03:54 05/21/2023 11:37:49 Onychomycosis 957969535 B35.1 Asthma 142752954 J45.90 9 Cardiomyopathy 86507389 I10 Disorder of hip joint 42 7183069 M12.859 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 Hyperlipidemia 70881363 E78.5 Vulval and /or perineal noninflammatory disorders 570772284 N90.9 Adult heal th examination 376300202 Z00.[id number] [place] [address] 09/01/2023 10:23:16 09/01/2023 13:28:10 Vertigo 260062648 R42 Impacted c erumen of bilateral ears 6096038993 624316 H61.23 [id number] LOLLY CORTEZ MD [facility] [address] [place] [address] 11/26/2023 07:26:08 11/26/2023 08:10:59 Screening mammography 75206635 Z12.31 Adjustment disorder 1722 6007 F43.20 Asthma 666241875 J45.90 9 Essential hypertension 06142995 I10 Guttate psoriasis 034220 00 L40.4 Cardiomyopathy 40551791 I10 Hyperlipidemia 21131613 E78.5 Prediabetes 299854924 R7 3.03 Health Concerns Section Related Observation LastModified by Organization Detai ls LastModified Time None Recorded Concern Status LastModified by Organization Details LastModified Time None Recorded Advance Directives Directive None Recorded Payers Encounter Date Sequence Insurance Name Policy Number Policy Lema Covered Member ID Lema Member ID Guarantor Name 05/21/2023 1 [id number] - [place]PO) [id number] Luna Mott [id number] Luna Mott 09/01/2023 1 [place] - [place]) [id number] Luna Mott [id number] Luna Mott 11/26/2023 1 [place] - [place]) [id number] Luna Mott [id number] Luna Mott Notes Date Note Type Note Provider Name and Address Organization Details Recorded Time 05/21/2023 text/html HPI Notes: Thais here today for an annual wellness exam MD [address], [place], [address], [facility] 05/24/2023 18:32:35 09/01/2023 text/html HPI Notes: Luna [...] the name of it. [address], [place], [address], [facility]. 09/01/2023 13:55:07 11/26/2023 text/html HPI Notes: Thais here today for follow-up of cardiomyopathy, obesity MD [address], [place], [address], [facility]. 11/28/2023 09:26:44 OBGyn Episode No OBEpisode recorded.
--- OUTSIDE RECORDS SUMMARY | 2024-01-14 11:06 | XMS_ITS | Encounter Summary ---
Author Organization [facility] Address [address] [place] [address] Care Team Providers Care Pet Handler Name Role Phone Lolly Oliveira MD Primary Care Provider [phone] Encounter Details Date Type Department Care Team (Late st Contact Info) Description 04/17/2005 Results Only [facility] - [place] conversion [address] [place] [address] Lolly Oliveira MD [address] [place], [place] [id number] Social History Tobacco Use Types Packs/Day Years [...] ? JING ALVARENGA ? Accession #: ? [id number] : ? 1950 (Age: 54) ??F ?Collect Date: ? 04/17/2005 Location: ? [facility] ? Receive Date: ? 04/21/2005 Provider: ?LOLLY OLIVEIRA MD Copy to: ? Specimen/Source: ?ThinPrep Pap Test, Cervix/Endocervix, processed on iKONVERSEPrep Imaging System, with manual evaluation Last Menstrual [...] Oliveira MD PATHOLOGY ORDERABLES [facility] [address] [place] [address] documented in this encounter Visit Diagnoses Not on filedocumented in this encounter Care Teams Pet Handler Relationship Specialty Start Date End Date Lolly Oliveira MD [address] [place] [address] PCP - General 11/13/08 documented as of this encounter
--- OUTSIDE RECORDS SUMMARY | 2024-01-14 11:06 | XMS_ITS | Encounter Summary ---
Author Organization [facility] [place] [address] Care Team Providers Care Silver Spray Worker Name Role Phone Lolly Oliveira MD Primary Care Provider [phone] Encounter Details Date Type Department Care Team [...] AM EST Hospital Encounter Non-Invasive [place] [address] Arrived documented as of this encounter Visit Diagnoses Not on filedocumented in this encounter Care Teams Silver Spray Worker Relationship Specialty Start Date End Date Lolly Oliveira MD [address] [place] [address] PCP - General 07/17/13 documented as of this encounter
--- OUTSIDE RECORDS SUMMARY | 2024-01-14 11:06 | XMS_ITS | Encounter Summary ---
Author Organization [facility] Address [address] [place] [address] Care Team Providers Care Veterinary Meat Inspector Name Role Phone Lolly Oliveira MD Primary Care Provider [phone] Encounter Details Date Type Department Care Team (Late st Contact Info) Description 04/25/2009 Orders Only [facility] Laboratory Services - [facility] ([facility]) [address], [place] [phone] Lolly Oliveira MD [address] [place], [place] [id number] Social History Tobacco Use Types Packs/Day Years [...] ? JING ALVARENGA ? Accession #: ? [id number] ? : ? 1950 (Age: 58) ??F [...] Lolly Oliveira MD PATHOLOGY ORDERABLES [facility] [address] [place] [address] documented in this encounter Visit Diagnoses Not on filedocumented in this encounter Care Teams Veterinary Meat Inspector Relationship Specialty Start Date End Date Lolly Oliveira MD [address] [place] [address] PCP - General 11/13/08 documented as of this encounter
--- OUTSIDE RECORDS SUMMARY | 2024-01-14 11:06 | XMS_ITS | Encounter Summary ---
Author Organization [facility] Address [address] [place] [address] Care Team Providers Care Special Education Coordinator Name Role Phone Lolly Oliveira MD Primary Care Provider [phone] Encounter Details Date Type Department Care Team (Late st Contact Info) Description 05/02/2004 Results Only [facility] - [place] conversion [address] [place] [address] Lolly Oliveira MD [address] [place], [place] [phone] Social History Tobacco Use Types Packs/Day Years [...] 68. [facility] Report Status Final [id number] [facility] 05/02/2004 9:32 EST 05/10/2004 9:32 EST Lolly Oliveira MD MICROBIOLOGY - GENER AL ORDERABLES [facility] [address] [place] [address] * CYTOPATHOLOGY (05/02/2004 0:00 EST) Pathology Report: CYTOPATHOLOGY REPORT Reports generated via electronic interface contain original data; however they are lacking the format of the original report. Caution should be taken when reading/interpreti ng unformatted reports. Name: ? JING ALVARENGA ? Accession #: ? [id number] : ? 1950 (Age: 53) ??F ?Collect [...] Oliveira MD PATHOLOGY ORDERABLES Performing Organization Address City/State/[facility] Co de Phone Number [facility] [address] [place] [address] documented in this encounter Visit Diagnoses Not on filedocumented in this encounter Care Teams Special Education Coordinator Relationship Specialty Start Date End Date Lolly Oliveira MD [address] [place] [address] PCP - General 11/13/08 documented as of this encounter
--- OUTSIDE RECORDS SUMMARY | 2024-01-14 11:06 | XMS_ITS | Encounter Summary ---
Author Organization [facility] [place] [address] Care Team Providers Care Mental Health Therapist Name Role Phone Lolly Oliveira MD Primary Care Provider [phone] Encounter Details Date Type Department Care Team (Late st Contact Info) Description 11/16/2022 Telephone Cardiology at [address] [id number] Luna Rousseau, RN Social History Tobacco Use Types Packs/Day Years Used Date Smoking Tobacco: Never Alcohol Use Standard Drinks/Week Comments Not Currently 0 (1 standard drink = 0.6 oz pur e alcohol) [facility] Inpatient Questions Answer Date Recorded [...] today was 118/57 at [facility] at [facility]. Pt is going twice a [...] MEDICAL [facility]ENTER Hospital Encounter Non[place] [phone] Arrived documented as of this encounter Visit Diagnoses Not on filedocumented in this encounter Care Teams Mental Health Therapist Relationship Specialty Start Date End Date Lolly Oliveira MD [address] [place] [address] PCP - General 07/17/13 documented as of this encounter
--- OUTSIDE RECORDS SUMMARY | 2024-01-14 11:06 | XMS_ITS | Encounter Summary ---
Author Organization [facility] Address [address] [place] [address] Care Team Providers Care Porter Baggage Name Role Phone Lolly Oliveira MD Primary Care Provider [phone] Encounter Details Date Type Department Care Team (Late st Contact Info) Description 02/11/2021 Lab Requisition [facility] Pathology & Laboratory Medicine - [address] [address] Outr Resulting Lab, Provider Social History Tobacco [...] Resulting Lab MICROBIOLOGY - GENERAL ORDERABLES [facility] [address] [place] [address] * COVID-19 TESTING (02/11/2021 8:00 EST) COVID-19 rt-PCR Result Negative Negative 02/12/2021 14:[address] [facility] Comment: This test has [...] was performed using the med SARS-CoV-2 assay ([employer] on the Med 6800 System Performing Lab Med 6800 [facility] Lab 02/12/2021 14:[address] [facility] Swab 02/11/2021 8:00 EST 02/11/2021 22:22 EST Provider Outr Resulting Lab MICROBIOLOGY - GENERAL ORDERABLES [facility] [address] [place] [address] documented in this encounter Visit Diagnoses Not on filedocumented in this encounter Care Teams Porter Baggage Relationship Specialty Start Date End Date Lolly Oliveira MD [address] [place] [address] PCP - General 11/13/08 documented as of this encounter
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
--- OUTSIDE RECORDS SUMMARY | 2024-01-14 11:06 | XMS_ITS | Encounter Summary ---
Author Organization [facility] Address [address] [place] [address] Care Team Providers Care Protective Services Officer Name Role Phone Lolly Oliveira MD Primary Care Provider Encounter Details Date Type Department Care Team (Late st Contact Info) Description 11/13/2020 Lab Requisition [facility] Pathology & Laboratory Medicine - [address] [id number] Outr Resulting Lab, Provider Social History Tobacco [...] Resulting Lab MICROBIOLOGY - GENERAL ORDERABLES [facility] [address] [place] [address] * COVID-19 TESTING (11/13/2020 7:30 EDT) COVID-19 rt-PCR Result Negative Negative 11/14/2020 11:46 EDT [facility] Comment: This test has [...] performed using the med SARS-CoV-2 assay ([employer] on the Med 6800 System Performing Lab Med 6800 [facility] Lab 11/14/2020 11:46 EDT [facility] Swab 11/13/2020 7:30 EDT 11/13/2020 20:57 EDT Provider Outr Resulting Lab MICROBIOLOGY - GENERAL ORDERABLES [facility] [address] [place] [address] documented in this encounter Visit Diagnoses Not on filedocumented in this encounter Care Teams Protective Services Officer Relationship Specialty Start Date End Date Lolly Oliveira MD [address] [place] [address] PCP - General 11/13/08 documented as of this encounter
--- OUTSIDE RECORDS SUMMARY | 2024-01-14 11:06 | XMS_ITS | Encounter Summary ---
Author Organization [facility] Address [address] [place] [address] Care Team Providers Care Hot Head Machine Operator Name Role Phone Lolly Oliveira MD Primary Care Provider [phone] Encounter Details Date Type Department Care Team (Late st Contact Info) Description 05/29/2002 Results Only [facility] - Maple conversion [address] [place] [address] Silvia Diehl, [address] [phone] Social History Tobacco Use Types Packs/Day Years [...] ? JING MOTT ? Accession #: ? [id number] : ? 1950 (Age: 51) ??F ?Collect Date: ? 05/29/2002 Location: ? [facility] ? Receive Date: ? 05/31/2002 Provider: ?SILVIA DIEHL [employer] Copy to: ? Specimen/Source: ?ThinPrep Pap Test, [...] Report [facility] 05/29/2002 05/31/2002 Silvia Diehl [employer]ERINAR[employer] PATHOLOGY ORDERABLES [facility] [address] [place] [address] documented in this encounter Visit Diagnoses Not on filedocumented in this encounter Care Teams Hot Head Machine Operator Relationship Specialty Start Date End Date Lolly Oliveira MD [address] [place] [address] PCP - General 11/13/08 documented as of this encounter
--- OUTSIDE RECORDS SUMMARY | 2024-01-14 11:06 | XMS_ITS | Encounter Summary ---
Author Organization [facility] [place] [address] Care Team Providers Care Fabric Worker Foreman Name Role Phone Lolly Oliveira MD Primary Care Provider [phone] Encounter Details Date Type Department Care Team (Late st Contact Info) Description 05/18/2023 Refill Dermatology at [address] [address] Nora Meredith LPN Social [...] She voiced understanding. Order sent to [facility] drug. documented in this encounter Plan of Treatment Upcoming Encounters Date Type Department Care Team (Late st Contact Info) Description 01/16/2024 10:00 AM EST Hospital Encounter [place] [address] Arrived documented as of this encounter Visit Diagnoses Not on filedocumented in this encounter Care Teams Fabric Worker Foreman Relationship Specialty Start Date End Date Lolly Oliveira MD [address] [place] [address] PCP - General 07/17/13 documented as of this encounter
--- OUTSIDE RECORDS SUMMARY | 2024-01-14 11:06 | XMS_ITS | Encounter Summary ---
Author Organization [facility] [place] [address] Care Team Providers Care Turntable Man Name Role Phone Lolly Oliveira MD Primary Care Provider [phone] Reason for Visit * Reason Onset Date Comments Other 07/24/2022 Implanted Cardia c Device Teaching/Education Encounter Details Date Type Department Care Team (Late st Contact Info) Description 07/24/2022 Notes Only Cardiology at [address] [phone] Letha Arroyo Other (Implanted Cardiac Device Teaching/Education) [...] to call the Cardiac Device Clinic at [phone] with any questions. Plan: Post op check: [...] st Contact Info) Description 01/16/2024 10:00 AM [facility] Hospital Encounter [place] [address] Arrived documented as of this encounter Visit Diagnoses Not on filedocumented in this encounter Care Teams Turntable Man Relationship Specialty Start Date End Date Lolly Oliveira MD [address] [place] [address] PCP - General 07/17/13 documented as of this encounter
--- OUTSIDE RECORDS SUMMARY | 2024-01-14 11:06 | XMS_ITS | Encounter Summary ---
Author Organization [facility] [place] [address] Care Team Providers Care Web Application Developer Name Role Phone Lolly Oliveira MD Primary Care Provider [phone] Reason for Visit * Reason Comments Follow-up 8 weeks UVB treatmen t twice weekly Encounter Details Date Type Department Care Team (Late st Contact Info) Description 07/19/2023 11:00 AM EDT Office Visit Dermatology at [address] [phone] Clay Ramírez MD [address], ERIKA A DERMATOLOGY [place], [place] [phone] Psoriasis Social History Tobacco Use Types Packs/Day [...] CENTER Hospital Encounter Non-Invasive [place] [address] Arrived documented as of this encounter Visit Diagnoses Diagnosis Psoriasis Other psoriasis documented in this encounter Care Teams Web Application Developer Relationship Specialty Start Date End Date Lolly Oliveira MD [address] [place] [address] PCP - General 07/17/13 documented as of this encounter
--- OUTSIDE RECORDS SUMMARY | 2024-01-14 11:06 | XMS_ITS | Encounter Summary ---
Author Organization [facility] Address [address] [place] [address] Care Team Providers Care Gimp Tacker Name Role Phone Lolly Oliveira MD Primary Care Provider [phone] Encounter Details Date Type Department Care Team (Late st Contact Info) Description 04/01/2005 Results Only [facility] - Maple conversion [address] [place] [address] Blair Dukes MD [address] [place] [id number] Social History Tobacco Use Types Packs/Day Years [...] ? JING ALVARENGA ? Accession #: ? [id number] ? : ? 1950 (Age: 54) ??F [...] ? Received in Hollande' s fixative labelled [place] and #1 ??terminal ileum bx is a single 0.3 x 0.2 x 0.2 cm tissue, submitted intact as (A). Received in Hollande' s fixative labelled [place] and #2 ??transverse colon bx is a single 0.2 x 0.2 x 0.2 cm tissue, submitted intact as (B). ??(Dr. Lechuga)/[facility] End of Report [facility] 04/01/2005 04/02/2005 15: 24 EST Blair Dukes MD PATHOLOGY ORDERABLES [facility] [address] [place] [address] documented in this encounter Visit Diagnoses Not on filedocumented in this encounter Care Teams Gimp Tacker Relationship Specialty Start Date End Date Lolly Oliveira MD [address] [place] [address] PCP - General 11/13/08 documented as of this encounter
--- OUTSIDE RECORDS SUMMARY | 2024-01-14 11:06 | XMS_ITS | Encounter Summary ---
Author Organization [facility] [place] [address] Care Team Providers Care Bessemer Regulator Name Role Phone Lolly Oliveira MD Primary Care Provider [phone] Encounter Details Date Type Department Care Team (Late st Contact Info) Description 03/17/2023 Telephone Cardiology at [address] [phone] Saranya Ma Social History Tobacco Use Types [...] 9:43 AM EST Echo order faxed to [facility] at [phone]. No Prior auth needed. Ref #:[id number]. Saranya Ma Sr. Clinical Procedure [place]/Obstetrics Gyn documented in this encounter Plan of Treatment Upcoming Encounters Date Type Department Care Team (Late st Contact Info) Description 01/16/2024 10:00 AM [facility] Hospital Encounter [place] [address] Arrived documented as of this encounter Visit Diagnoses Not on filedocumented in this encounter Care Teams Bessemer Regulator Relationship Specialty Start Date End Date Lloly Oliveira MD [address] [place] [address] PCP - General 07/17/13 documented as of this encounter
--- OUTSIDE RECORDS SUMMARY | 2024-01-14 11:06 | XMS_ITS | Encounter Summary ---
Author Organization [facility] [place] [address] Care Team Providers Care Senior Client Advisor Name Role Phone Lolly Oliveira MD Primary Care Provider Encounter Details Date Type Department Care Team (Latest Contact Info) Description 10/18/2023 10:00 AM EDT - 10/18/2023 11:59 PM EDT Hospital Encounter Non-[place] [phone] Discharge Disposition: Home Social History Tobacco Use [...] with spacer fluticasone propionate (Flonase) 50 mcg/actuation [place], Suspension 1 spray by Each Nare route daily as needed. documented as of this encounter Plan of Treatment Upcoming Encounters Date Type Department Care Team (Late st Contact Info) Description 01/16/2024 10:00 AM EST Hospital Encounter Non-Invasive [place] [address] Arrived documented as of this encounter Procedures [...] filedocumented in this encounter Care Teams Senior Client Advisor Relationship Specialty Start Date End Date Lolly Oliveira MD [address] [place] [address] PCP - General 07/17/13 documented as of this encounter
--- OUTSIDE RECORDS SUMMARY | 2024-01-14 11:06 | XMS_ITS | Encounter Summary ---
Author Organization [facility] [place] [address] Care Team Providers Care Plug Saw Operator Name Role Phone Lolly Oliveira MD Primary Care Provider [phone] Encounter Details Date Type Department Care Team (Late st Contact Info) Description 03/15/2023 Telephone Cardiology at [address] [phone] Saranya Ma Social History Tobacco Use Types Packs/Day Years Used Date Smoking Tobacco: Never Alcohol Use Standard Drinks/Week Comments Not Currently 0 (1 standard drink = 0.6 oz pur e alcohol) [facility] Inpatient Questions Answer Date Recorded [...] her to have an echo done at [facility] prior to her appt withnhm there on 05/12/23. Message sent to Dr. Mcmahon asking him to put order in if he would like her to have this done. Saranya Ma Sr. Clinical Procedure [place] Utility Operator documented in this encounter Plan of Treatment Upcoming Encounters Date Type Department Care Team (Late st Contact Info) Description 01/16/2024 10:00 AM EST Hospital Encounter Non-Invasive [place] [address] Arrived documented as of this encounter Visit Diagnoses Not on filedocumented in this encounter Care Teams Plug Saw Operator Relationship Specialty Start Date End Date Lolly Oliveira MD [address] [place] [address] PCP - General 07/17/13 documented as of this encounter
--- OUTSIDE RECORDS SUMMARY | 2024-01-14 11:06 | XMS_ITS | Encounter Summary ---
Author Organization [facility] [place] [address] Care Team Providers Care Chemist Pharmaceutical Name Role Phone Lolly Oliveira MD Primary Care Provider Encounter Details Date Type Department Care Team (Latest Contact Info) Description 01/21/2023 10:00 AM EST - 01/21/2023 11:59 PM EST Hospital Encounter Non-Invasive [place] [phone] Discharge Disposition: Home Social History Tobacco Use [...] spacer fluticasone propionate (Flonase) 50 mcg/actuation [place], Suspension 1 spray by Each Nare route [...] AM EST Hospital Encounter Non-Invasive [place] [address] Arrived documented as of this [...] on filedocumented in this encounter Care Teams Chemist Pharmaceutical Relationship Specialty Start Date End Date Lolly Oliveira MD [address] [place] [address] PCP - General 07/17/13 documented as of this encounter
--- OUTSIDE RECORDS SUMMARY | 2024-01-14 11:06 | XMS_ITS | Encounter Summary ---
Author Organization [facility] [place] [address] Care Team Providers Care Disability Attorney Name Role Phone Lolly Oliveira MD Primary Care Provider Encounter Details Date Type Department Care Team (Latest Contact Info) Description 10/23/2022 10:00 AM EDT - 10/23/2022 11:59 PM EDT Hospital Encounter [place] [phone] Discharge Disposition: Home Social History Tobacco Use [...] with spacer fluticasone propionate (Flonase) 50 mcg/actuation [place], Suspension 1 spray by Each Nare route [...] MEDICAL CENTER Hospital Encounter Non-[place] [address] Arrived documented as of this [...] on filedocumented in this encounter Care Teams Disability Attorney Relationship Specialty Start Date End Date oLlly Oliveira MD [address] [place] [address] PCP - General 07/17/13 documented as of this encounter
--- OUTSIDE RECORDS SUMMARY | 2024-01-14 11:06 | XMS_ITS | Encounter Summary ---
Author Organization [facility] Address [facility] [place] [address] Care Team Providers Care Enterprise Sales Executive Name Role Phone Lolly Oliveira MD Primary Care Provider [phone] Encounter Details Date Type Department Care Team (Late st Contact Info) Description 03/15/2023 Orders Only Cardiology at [address] [phone] Lalit Mcmahon MD [facility] [place] [address] Nonischemic cardiomyopathy; Biventricular ICD (implantable cardioverter-defibrill ator) [...] AM EST Hospital Encounter Non-Invasive [place] [address] Arrived documented as of this encounter Visit Diagnoses Diagnosis Nonischemic cardiomyopathy Other primary cardiomyopathies Biventricular ICD (implantable cardioverter-defibrillator) in place documented in this encounter Care Teams Enterprise Sales Executive Relationship Specialty Start Date End Date Lolly Oliveira MD [address] [place] [address] PCP - General 07/17/13 documented as of this encounter
--- OUTSIDE RECORDS SUMMARY | 2024-01-14 11:06 | XMS_ITS | Encounter Summary ---
Author Organization [facility] Address [address] [place] [address] Care Team Providers Care Nuclear Spectroscopist Name Role Phone Unavailable Primary Care Provider Unavailabl e Encounter Details Date Type Department Care Team (Late st Contact Info) Description 11/07/2008 Orders Only [facility] Laboratory Services - [facility] ([facility] [address] [place] [address] Kenneth Parker MD [address] [place] [address] Social History Tobacco Use Types Packs/Day Years [...] ? LYLE, JING ? Accession #: ? [id number] ? : ? 1950 (Age: 58) ??F [...] Parker MD PATHOLOGY ORDERABLES Performing Organization Address City/State/[facility] Co de Phone Number [facility] [address] [place] [address] documented in this encounter Visit Diagnoses Not on filedocumented in this encounter
--- OUTSIDE RECORDS SUMMARY | 2024-01-14 11:06 | XMS_ITS | Encounter Summary ---
Author Organization [facility] Address [address] [place] [address] Care Team Providers Care Clip Loading Machine Adjuster Name Role Phone Lolly Oliveira MD Primary Care Provider [phone] Encounter Details Date Type Department Care Team (Late st Contact Info) Description 05/27/2021 Lab Requisition [place] Pathology & Laboratory Medicine - [address] [address] Iman Moran, DO [address] [place], [place] [phone] Encounter for other general examination Social History [...] if applicable. 05/30/2021 13:31 EDT [facility] Final Diagnosis A. COLON, POLYP AT 90 CM, BIOPSY/POLYPECTOM Y: - Tubular adenoma. 05/30/2021 13:31 [facility] Attestation By the signature below, the attending physician certifies that they have 1) personally conducted a gross and/or microscopic examination of the described specimen(s), and/or personally interpreted the results of laboratory testing of the described specimen(s), and 2) personally rendered or confirmed the above diagnosis. 05/30/2021 13:31 [facility] at 1331 Clinical History Severe diverticula and polypectomy x1 05/30/2021 13:31 [facility] Gross Description A. Received in formalin labelled with proper patient identification (initials J, K) and colon polyp x1 at 90 cm is a light pineda polypoid tissue measuring 0.2 x 0.2 x 0.2 cm. Submitted intact in A1. MICKEY CARLOS(ASCP) 05/27/2021 19:11 05/30/2021 13:31 [facility] Performing Lab [facility] 05/30/2021 13:31 [facility] Scanned Images 05/30/2021 13:31 [facility] Tissue ENTIRE COLON / Unknown 05/27/2021 11:23 EDT 05/27/2021 16:33 EDT Iman Moran DO PATHOLOGY ORDERABLES [facility] [address] [place] [address] documented in this encounter Visit Diagnoses Diagnosis Encounter for other general examination documented in this encounter Care Teams Clip Loading Machine Adjuster Relationship Specialty Start Date End Date Lolly Oliveira MD [address] [place] [address] PCP - General 11/13/08 documented as of this encounter
--- OUTSIDE RECORDS SUMMARY | 2024-01-14 11:06 | XMS_ITS | Encounter Summary ---
Author Organization [facility] [place] [address] Care Team Providers Care Railroad Inspector Name Role Phone Lolly Oliveira MD Primary Care Provider [phone] Reason for Visit * Reason Onset Date Comments Post Procedure Call 07/30/2022 Encounter Details Date Type Department Care Team (Late st Contact Info) Description 07/30/2022 Notes Only Cardiology at [address] [phone] Rosenda Sutton, RN Post Procedure Call Social [...] 07/30/2022 9:59 AM EDTSummary: Post Procedure Call: HOUSING AND RESIDENCE LIFE DIRECTOR implant EP RN Post-Procedure Note: Date of [...] Note: Follow-up Recommendations for Providers: - s/p HOUSING AND RESIDENCE LIFE DIRECTOR-D implant - post implant QRS 130 ms [...] MEDICAL CENTER Hospital Encounter Non-[place] [address] Arrived documented as of this encounter Visit Diagnoses Not on filedocumented in this encounter Care Teams Railroad Inspector Relationship Specialty Start Date End Date Lolly Oliveira MD [address] [place] [address] PCP - General 07/17/13 documented as of this encounter
--- OUTSIDE RECORDS SUMMARY | 2024-01-14 11:06 | XMS_ITS | Encounter Summary ---
Author Organization [facility] Address [address] [place] [address] Care Team Providers Care Mac Developer Name Role Phone Lolly Oliveira MD Primary Care Provider [phone] Encounter Details Date Type Department Care Team (Late st Contact Info) Description 06/16/2012 Results Only [facility] Laboratory Services - [facility] [address] [place], [place] [id number] Lolly Oliveira MD [address] [place], [place] [phone] Social History Tobacco Use Types Packs/Day Years [...] ? JING ALVARENGA ? Accession #: ? [id number] : ? 1950 (Age: 61) ??F ?Collect [...] MD PATHOLOGY ORDERABLES [facility] [address] [place] [address] documented in this encounter Visit Diagnoses Not on filedocumented in this encounter Care Teams Mac Developer Relationship Specialty Start Date End Date Lolly Oliveira MD [address] [place] [address] PCP - General 11/13/08 documented as of this encounter
--- OUTSIDE RECORDS SUMMARY | 2024-01-14 11:06 | XMS_ITS | Encounter Summary ---
Author Organization [facility] Address [address] [place] [address] Care Team Providers Care Special Delivery Mail Carrier Name Role Phone Lolly Oliveira MD Primary Care Provider [phone] Encounter Details Date Type Department Care Team (Late st Contact Info) Description 02/20/2020 Lab Requisition [facility] Pathology & Laboratory Medicine - [address] [id number] Outr Resulting Lab, Provider Social History Tobacco [...] in accordance with CLIA regulations, [employer] (CAP) guidelines (May 25, 2019), and FDA guidance (May 06, 2019). This test is only for use under the Food and Drug Administration's Emergency Use Authorization. Swab ENTIRE NASOPHARYNX / Unknown 02/19/2020 16:30 EST 02/20/2020 16:09 EST Provider Outr Resulting Lab MICROBIOLOGY - GENERAL ORDERABLES [facility] [place] * COVID-19 TESTING (02/19/2020 16:30 EST) COVID-19 rt-PCR Result NEGATIVE Negative 02/22/2020 23:41 EST [facility] Comment: 2019-novel Coronavirus (2019-nCoV) [...] in accordance with CLIA regulations, [employer] (CAP) guidelines (May 25, 2019), and FDA guidance (May 06, 2019). This test is only for use under the Food and Drug Administration's Emergency Use Authorization. Performing Lab [facility] 02/22/2020 23:41 EST [facility] Swab 02/19/2020 16:3 0 EST 02/20/2020 16:09 EST Provider Outr Resulting Lab MICROBIOLOGY - GENERAL ORDERABLES [facility] [address] [place] [address] [facility] [place] documented in this encounter Visit Diagnoses Not on filedocumented in this encounter Care Teams Special Delivery Mail Carrier Relationship Specialty Start Date End Date Lolly Oliveira MD [address] [place] [address] PCP - General 11/13/08 documented as of this encounter
--- OUTSIDE RECORDS SUMMARY | 2024-01-14 11:06 | XMS_ITS | Clinical Summary ---
Author Organization [facility] Address [address] [place] [address] Care Team Providers Care River Expedition Guide Name Role Phone Lolly Oliveira MD Primary Care Provider [phone] Social History Tobacco Use Types Packs/Day Years [...] COVID-19 Vaccine ( season) 2023 Care Teams River Expedition Guide Relationship Specialty Start Date End Date Lolly Oliveira MD [address] [place], [place] [address] PCP - General 11/13/08
--- OUTSIDE RECORDS SUMMARY | 2024-01-14 11:06 | XMS_ITS | Encounter Summary ---
Author Organization [facility] Address [facility] [place] [address] Care Team Providers Care Regional Facilities Specialist Name Role Phone Lolly Oliveira MD Primary Care Provider [phone] Encounter Details Date Type Department Care Team (Late st Contact Info) Description 11/11/2022 Orders Only Cardiology at [address] [phone] Lalit Mcmahon MD [facility] [place] [address] Nonischemic cardiomyopathy Social History Tobacco Use Types [...] [facility] Non[facility]vasive [place] [phone] Arrived documented as of this encounter Visit Diagnoses Diagnosis Nonischemic cardiomyopathy Other primary cardiomyopathies documented in this encounter Care Teams Regional Facilities Specialist Relationship Specialty Start Date End Date Berrian, Lolly M, MD [address] [place] [address] PCP - General 07/17/13 documented as of this encounter
--- OUTSIDE RECORDS SUMMARY | 2024-01-14 11:06 | XMS_ITS | Encounter Summary ---
Author Organization [facility] Address [facility] [place] [address] Care Team Providers Care Parts Clerk Name Role Phone Lolly Oliveira MD Primary Care Provider [phone] Encounter Details Date Type Department Care Team (Late st Contact Info) Description 01/29/2023 Notes Only Cardiology at [address] [address] Merle Lin PA [facility] [place] [address] Social History Tobacco Use Types Packs/Day Years [...] pdf document Date of transmission: 01/29/2023 Device metal shaping machine operator: BSI Device type: ASSOCIATE CHEMIST-D Presenting rhythm: /RVP/LVP AP 21% Right CUSTOMER SUPPORT TECHNICIAN 100% Left CUSTOMER SUPPORT TECHNICIAN: 100% Battery: 10.5 years Heart[employer] Index rising in setting of increasing S3 intensity, increasing respiratory rate, increasing night heart rate, and increasing mean heart rate. MICKEY Villa 01/29/2023 9:06 AM documented in this encounter Plan of Treatment Upcoming Encounters Date Type Department Care Team (Late st Contact Info) Description 01/16/2024 10:00 AM EST Hospital Encounter Non-[place] [address] Arrived documented as of this encounter Visit Diagnoses Not on filedocumented in this encounter Care Teams Parts Clerk Relationship Specialty Start Date End Date Lolly Oliveira MD [address] [place] [address] PCP - General 07/17/13 documented as of this encounter
--- OUTSIDE RECORDS SUMMARY | 2024-01-14 11:06 | XMS_ITS | Encounter Summary ---
Author Organization [facility] Address [address] [place] [address] Care Team Providers Care Plate Roller Name Role Phone Lolly Oliveira MD Primary Care Provider [phone] Encounter Details Date Type Department Care Team (Late st Contact Info) Description 03/06/2003 Results Only [facility] [place] conversion [address] [place] [address] Lolly Oliveira MD [address] [place], [place] [id number] Social History Tobacco Use Types Packs/Day Years [...] Oliveira MD PATHOLOGY ORDERABLES Performing Organization Address City/State/[facility] Co de Phone Number [facility] [address] [place] [address] documented in this encounter Visit Diagnoses Not on filedocumented in this encounter Care Teams Plate Roller Relationship Specialty Start Date End Date Lolly Oliveira MD [address] [place] [address] PCP - General 11/13/08 documented as of this encounter
--- OUTSIDE RECORDS SUMMARY | 2024-01-14 11:06 | XMS_ITS | Referral Summary ---
Author Organization [facility] Address [address] [place] [address] Care Team Providers Care Maintenance Engineer Oil Field Name Role Phone Lolly Oliveira MD Primary Care Provider [phone] Social History Tobacco Use Types Packs/Day Years Used Date Smoking Tobacco: Never Assessed Sex and Gender Information Value Date Recorded Sex Assigned at Not on file Gender Identity Not on file Sexual Orientation Not on file Plan of Treatment Not on file Care Teams Maintenance Engineer Oil Field Relationship Specialty Start Date End Date Lolly Oliveira MD [address] [place] [address] PCP - General 11/13/08
--- OUTSIDE RECORDS SUMMARY | 2024-01-14 11:06 | XMS_ITS | Encounter Summary ---
Author Organization [facility] [place] [address] Care Team Providers Care Stumper Feller Name Role Phone Lolly Oliveira MD Primary Care Provider [phone] Encounter Details Date Type Department Care Team (Latest Contact Info) Description 04/21/2023 10:00 AM EST - 04/21/2023 11:59 PM EST Hospital Encounter Non-[place] [phone] Discharge Disposition: Home Social History Tobacco Use [...] with spacer fluticasone propionate (Flonase) 50 mcg/actuation [place], Suspension 1 spray by Each Nare route [...] AM EST Hospital Encounter Non-[place]vasive [place] [address] Arrived documented as of this [...] on filedocumented in this encounter Care Teams Stumper Feller Relationship Specialty Start Date End Date Lolly Oliveira MD [address] [place] [address] PCP - General 07/17/13 documented as of this encounter
--- OUTSIDE RECORDS SUMMARY | 2024-01-14 11:06 | XMS_ITS | Clinical Summary ---
Author Organization [facility] [place] [address] Care Team Providers Care Warp Spinner Name Role Phone Lolly Oliveira MD Primary Care Provider [phone] Allergies Active Allergy Reactions Criticality Noted Date [...] spacer Active fluticasone propionate (Flonase) 50 mcg/actuation [place], Suspension 1 spray by Each Nare route [...] PM EDT Hospital Encounter [place] [address] Discharge Disposition: Home from Last [...] Hospital Encounter [place] [address] Arrived Health Maintenance Due Date Last Done [...] series) 11/07/2023 Medical Devices Implanted Type Area Wooden Barrel Mechanic Device Identifier Shelf Expiration Date Model / Serial / Lot Bsx: [id number]: [id number]/18/2 [id number] Implanted: by Lalit Mcmahon MD (Quantity not on file) Defibrillator Chest Wall [employer] [id number] / [id number] / Bsx: [id number]: [id number]/18/2 [id number] Implanted: by Lalit Mcmahon MD (Quantity not on file) Lead Heart [employer] [id number] / [id number] / Bsx: [id number]: [id number] Implanted: by Lalit Mcmahon MD (Quantity not on file) Lead Heart [employer] [id number] / [id number] / Bsx: [id number]: [id number]/18/2 023 Implanted: by Lalit Mcmahon MD (Quantity not on file) Lead Heart [employer] 0672 / [id number] / Procedures Procedure Name Priority Date/Time Associated [...] Status decision made by: Patient Care Teams Warp Spinner Relationship Specialty Start Date End Date Lolly Oliveira MD [address] [place] [address] PCP - General 07/17/13
--- OUTSIDE RECORDS SUMMARY | 2024-01-14 11:06 | XMS_ITS | Encounter Summary ---
Author Organization [facility] [address] Care Team Providers Care Dietitian Helper Name Role Phone Lolly Oliveira MD Primary Care Provider [phone] Encounter Details Date Type Department Care Team (Latest Contact Info) Description 07/20/2023 10:00 AM EDT - 07/20/2023 11:59 PM EDT Hospital Encounter [place] [phone] Discharge Disposition: Home Social History Tobacco Use [...] with spacer fluticasone propionate (Flonase) 50 mcg/actuation [place], Suspension 1 spray by Each Nare route daily as needed. documented as of this encounter Plan of Treatment Upcoming Encounters Date Type Department Care Team (Late st Contact Info) Description 01/16/2024 10:00 AM [facility] Hospital Encounter [place] [address] Arrived documented as of this encounter Procedures [...] on filedocumented in this encounter Care Teams Dietitian Helper Relationship Specialty Start Date End Date Lolly Oliveira MD [address] [place] [address] PCP - General 07/17/13 documented as of this encounter
--- OUTSIDE RECORDS SUMMARY | 2024-01-14 11:06 | XMS_ITS | Encounter Summary ---
Author Organization [facility] Address [facility] [place] [address] Care Team Providers Care Incident Response Lead Name Role Phone Lolly Oliveira MD Primary Care Provider [phone] Encounter Details Date Type Department Care Team (Late st Contact Info) Description 05/03/2023 Telephone Cardiology at [address] [phone] Lalit Mcmahon MD [facility] [place] [address] Social History Tobacco Use Types Packs/Day Years [...] AM EST Hospital Encounter [place] [address] Arrived documented as of this encounter Visit Diagnoses Not on filedocumented in this encounter Care Teams Incident Response Lead Relationship Specialty Start Date End Date Lolly Oliveira MD [address] [place] [address] PCP - General 07/17/13 documented as of this encounter
--- OUTSIDE RECORDS SUMMARY | 2024-01-14 11:06 | XMS_ITS | Encounter Summary ---
Author Organization [facility] Address [address] [place] [address] Care Team Providers Care Sld Educational Aide Name Role Phone Lolly Oliveira MD Primary Care Provider [phone] Encounter Details Date Type Department Care Team (Late st Contact Info) Description 03/21/2019 Lab Requisition [facility] Pathology & Laboratory Medicine - [address] [address] Unknown, Provider, Social History Tobacco Use Types [...] 211 - 911 pg/mL 03/22/2019 11:52 EST [facility] Blood VENOUS BLOOD / Unknown 03/16/2019 9:25 EST 03/21/2019 21:35 EST Provider Unknown CHEMISTRY & BLOOD GA S ORDERABLES [facility] [address] [place] [address] documented in this encounter Visit Diagnoses Not on filedocumented in this encounter Care Teams Sld Educational Aide Relationship Specialty Start Date End Date Lolly Oliveira MD [address] [place] [address] PCP - General 11/13/08 documented as of this encounter
--- OUTSIDE RECORDS SUMMARY | 2024-01-14 11:06 | XMS_ITS | Encounter Summary ---
Author Organization [facility] Address [address] [place] [address] Care Team Providers Care Precision Lens Grinder Name Role Phone Lolly Oliveira MD Primary Care Provider [phone] Encounter Details Date Type Department Care Team (Late st Contact Info) Description 04/12/2007 Results Only [facility] conversion [address] [place] [address] Lolly Oliveira MD [address] [place], [place] [id number] Social History Tobacco Use Types Packs/Day Years [...] ? JING ALVARENGA ? Accession #: ? [id number] : ? 1950 (Age: 56) ??F ?Collect Date: ? 04/12/2007 Location: ? [facility] ? Receive Date: ? 04/13/2007 Provider: ?LOLLY OLIVEIRA MD Copy to: ? Specimen/Source: ?ThinPrep Pap Test, Cervix/Endocervix, processed on [facility] [place] ThinPrep Imaging System, with manual evaluation Last [...] Oliveira MD PATHOLOGY ORDERABLES [facility] [address] [place] [address] documented in this encounter Visit Diagnoses Not on filedocumented in this encounter Care Teams Precision Lens Grinder Relationship Specialty Start Date End Date Lolly Oliveira MD [address] [place] [address] PCP - General 11/13/08 documented as of this encounter
--- OUTSIDE RECORDS SUMMARY | 2024-01-14 11:07 | XMS_ITS | Encounter Summary ---
Author Organization [facility] Address [facility] [place] [address] Care Team Providers Care Batch Mixing Truck Driver Name Role Phone Lolly Oliveira MD Primary Care Provider [phone] Reason for Visit * Auth/Cert (Routine) Specialty Diagnoses / Procedures Referred By Contac t Referred To Contact Diagnoses Left bundle-branch block, unspecified Other cardiomyopathies Left bundle branch block [I44.7]Nonischemic cardiomyopathy [I42.8] Procedures PRG CATH PLMT LEFT HEART CATH & ARTS W/INJ & ANGIO IMG S&I ELECTROPHYSIOLOGY PROCEDURE Lalit Mcmahon MD [facility] [place] [address] [facility] Referral ID Status Reason Start Date Expiration Date Visits Re quested Visits Authorized [id number] 1 1 Encounter Details Date Type Department Care Team (Latest Contact Info) Description 07/23/2022 11:39 AM EDT - 07/24/2022 10:23 AM EDT Hospital [place] [id number] Lalit Mcmahon MD [facility] [place] [place] [address] Left bundle branch block; Nonischemic cardiomyopathy; Cardiac resynchronization therapy defibrillator (SECURITY TECHNICIAN-D) in place Discharge Disposition: Home Social History [...] Luna Mott Patient Age: 71 y.o. Language: Citizen Of [place] Race: White Ethnicity: Not nor Admit date: 07/23/2022 Discharge date and time: 07/24/22 Attending Physician: Lalit Mcmahon MD Discharge Physician: Lalit Mcmahon MD Follow-up Recommendations for Providers: - s/p SECURITY TECHNICIAN-D implant - post implant QRS 130 ms [...] ??? Solar lentigo Operations/Major Procedures: 07/23/22: [facility] SECURITY TECHNICIAN-D implant History of Presentation: 71 y.o. female with a history of HFrEF, LBBB, QRS >150, NYHA II who is POD#1 of SECURITY TECHNICIAN-D implant ([employer]). Hospital Course: Elective admission for SECURITY TECHNICIAN-D implant Admitted post-implant for pain management, telemetry [...] (heart failure with reduced ejection fraction) [I50.20] SECURITY TECHNICIAN-D implant Admission Condition: good Indication for Admission: [...] g Refills: 3 fluticasone propionate 50 mcg/actuation [place], Suspension Commonly known as: Flonase 1 spray [...] incision. Make sure to use a clothing worker (such as a towel) in between the [...] F. The office scheduling phone number is [phone]. ARM MOVEMENT RESTRICTIONS POST-IMPLANT - Do not [...] please call the Cardiac ElectrophysiologyTriage Nurse at [phone], option 3. General Instructions None Discharge References/Attachments [...] incision. Make sure to use a clothing worker (such as a towel) in between the [...] F. The office scheduling phone number is [phone]. ARM MOVEMENT RESTRICTIONS POST-IMPLANT - Do not [...] please call the Cardiac ElectrophysiologyTriage Nurse at [phone], option 3. documented in this encounter Medications [...] with spacer fluticasone propionate (Flonase) 50 mcg/actuation [place], Suspension 1 spray by Each Nare route [...] Cardiac Electrophysiology Post-Implant Device Interrogation Luna Mott [id number] 07/24/2022 History: Luna Mott is a 71 y.o. female with a history of HFrEF, LBBB, QRS >150, NYHA II who is POD#1 of SECURITY TECHNICIAN-D implant ([employer]). Overall feels well this morning. Ready [...] Neuro- A&Ox3 Device Interrogation: Data ?? Pet Store Merchandiser Model # Serial # Generator [employer] [id number] Atrial Lead [employer] 7841 [id number] RV Lead [employer] 0672 387055 LV Lead [employer] 4674 135496 ?? Diagnostics Pacing Mode: DDD 60-130 Underlying Rhythm: Moran Atrial Episodes: None Ventricular Episodes: None FINAL PROGRAMMING: Pacing: Mode Lower rate (ppm) Upper rate (ppm) ?? DDD 60 130 VF: Rate (bpm) #Antitachycardia pacing First shock energy (J) ?? 200 Quick convert 41 VT: 170 Monitor only Monitor only ? Battery and Leads Impedances (ohms) Sensing (mV) Thresholds HV RA RV LV RA RV LV RA RV LV 73 385 145 3399 (LVa) 7.7 13.1 >25 0.4V @ 0.4 ms 0.4V @ 0.4 ms 0.5 V @ 1.0 ms POD#1 CXR: All leads in nominal positioning Impression: 71 y.o. female who is s/p SECURITY TECHNICIAN-D implant for LBBB, NYHA II, HFrEF. - [...] [facility]) Fadi Nunez MD 07/24/2022 Pager: [phone] I met with the patient today and [...] agreement. ? Dr. Lalit Mcmahon, electrophysiology attending ([id number]) * Zaria Wright RN - 07/23/2022 8:28 [...] HF, QRS > 150 ms presents for SECURITY TECHNICIAN-D placement. ROS: Denies recent fevers or chills [...] 0.9) flush 5 mL 5 mL Intravenous [id number] ramos MD ??? sodium chloride 0.9 % [...] HF, QRS > 150 ms presents for SECURITY TECHNICIAN-D placement. Backup would be LBBAP lead. Antibiotics: cefazolin Rationales for, intended benefits and potential risk of planned procedures reviewed. The patient indicated understanding and agreement with the plan. Informed consent signed. Procedure checklist completed. Fadi Nunez MD Cardiac Electrophysiology Fellow [facility] Pager [phone] 07/23/2022 I met with the patient today [...] agreement. ? Dr. Lalit Mcmahon, electrophysiology attending ([id number]) documented in this encounter Miscellaneous Notes * Brief Op Note - Lalit Mcmahon MD - 07/23/2022 4:04 PM EDT Brief Operative Note Patient Name: Luna Mott : [id number] MR#: [id number] Case Date: 07/23/2022 Surgeon: Surgeon(s) and Role: [...] AM EST Hospital Encounter [place] [address] Arrived Scheduled Orders Name Type Priority Associated Diagnoses Orde r Schedule EKG 12 Lead ECG Routine Cardiac resynchronization therapy defibrillator (SECURITY TECHNICIAN-D) in place One Time for 1 Occurrences [...] (Bezet) 522 ms MUSE SYSTEM Calculated R [place] 78 degrees MUSE SYSTEM Calculated T [place] -71 degrees MUSE SYSTEM INTERPRETATION AV dual-paced [...] questions please contact the health health care administrator that requested your imaging first. ? Electronically signed by: Kwame Vargas MD, [facility] ([phone]), at 07/24/2022 6:43 AM Narrative 07/24/2022 6:43 [...] have questions please contactthe health health care administrator that requested your imaging first. Electronically signed by: Kwame Vargas MD, [facility]([phone]), at 07/24/2022 6:43 AM Lalit Mcmahon MD IMG DX ORDERABLES * ELECTROPHYSIOLOGY PROCEDURE (07/23/2022 1:11 PM EDT) Anatomical Region Laterality Modality Other Narrative 07/23/2022 4:24 PM EDT Table formatting from the original result was not included. BIVENTRICULAR ICD IMPLANTATION Plum Packer: Lalit Mcmahon MD Fellow: Fadi Nunez MD [...] entire procedure. LEAD AND GENERATOR DATA: Pet Store Merchandiser Model # Serial # Generator [employer] [id number] Atrial Lead [employer] 7841 [id number] RV Lead [employer] 0672 875078 LV Lead [employer] [phone] PACE/SENSE DATA: Sensed wave (mV) Threshold (V) [...] (cGycm2) 300 CONCLUSIONS: Successful implantation of a [employer] biventricular ICD for primary prevention and treatment of symptoms related to congestive heart failure. Follow up in EP clinic in 1-2 months. Procedures performed: new ICD system ( cpt 57892-E9); implant LV lead at time of ICD insertion (cpt 16816) I have read, edited and approve of this report: Lalit Mcmahon MD S Cardiac Electrophysiology 07/23/2022 4:22 PM Procedure Note Lalit Mcmahon MD - 07/23/2022 BIVENTRICULAR ICD IMPLANTATION Plum Packer: Lalit Mcmahon MD Fellow: Fadi Nunez MD [...] the entireprocedure. LEAD AND GENERATOR DATA: Pet Store Merchandiser Model # Serial # Generator [employer] [id number] Atrial Lead [employer] 7841 [id number] RV Lead [employer] 0672 107572 LV Lead [employer] 4674 125180 PACE/SENSE DATA: Sensed wave (mV) Threshold (V) [...] (cGycm2) 300 CONCLUSIONS: Successful implantation of a [employer] biventricular ICD forprimary prevention and treatment of symptoms related to congestive heartfailure. Follow up in EP clinic in 1-2 months. Procedures performed: new ICD system ( cpt 35541-G6); implant LV lead attime of ICD insertion (cpt 83704) I have read, edited and approve of this report: Lalit Mcmahon MD [facility] Cardiac Electrophysiology 07/23/2022 4:22 PM Lalit Mcmahon MD EP PROCEDURE ORDERAB LES * POCT Glucose (07/23/2022 12:54 PM EDT) Glucose, POC 83 65 - 199 mg/dL [facility] Comment: Supplemental ranges: <140 mg/dL before meals <180 mg/dL all other times of the day Blood 07/23/2022 12:5 4 PM EDT 07/23/2022 12:54 PM EDT Lalit Mcmahon MD POINT OF CARE TEST O RDERABLES Performing Organization Address [facility] [[email or web address]] Co de Phone Number [facility] [place] [address] * EKG 12 Lead (07/23/2022 12:33 PM EDT) Ventricular rate 72 BPM MUSE SYSTEM Atrial Rate 72 BPM MUSE SYSTEM P-R Interval 158 ms MUSE SYSTEM QRS Duration 176 ms MUSE SYSTEM Q-T Interval 458 ms MUSE SYSTEM QTC Calculated (Bezet) 501 ms MUSE SYSTEM Calculated P [place] 34 degrees MUSE SYSTEM Calculated R [place] 12 degrees MUSE SYSTEM Calculated T [place] -173 degrees MUSE SYSTEM INTERPRETATION Normal sinus rhythm Left bundle branch block Abnormal ECG No previous ECGs available Confirmed by MD Salome, Lalit ([id number]) on 07/23/2022 1:19:03 PM MUSE SYSTEM 07/23/2022 12:3 3 PM EDT 07/23/2022 1:19 PM EDT Lalit Mcmahon MD ECG ORDERABLES Performing Organization Address [facility] de Phone Number MUSE SYSTEM * Differential, Automated (07/23/2022 11:55 AM EDT) Neutrophil % 62.6 % [facility] Neutrophil Absolute 4.14 1.70 - 6.10 x10(3)/[facility] Lymph % 27.0 % [facility] Lymphocytes Abs 1.8 0.9 - 3.2 x10(3)/[facility] Monocyte % 7.3 % [facility] Monocyte Abs 0.5 0.3 - 0.9 x10(3)/[facility] Eos % 2.3 % [facility] Eosinophils Abs 0.2 0.0 - 0.4 x10(3)/[facility] LABORATORY Basophil % 0.6 % [facility] IT[facility] LABORATORY Baso Absolute 0.0 0.0 - 0.1 x10(3)/[facility]AT[facility] Immature Gran % 0.20 % [facility] Comment: Immature granulocytes(IG's)percentage and absolute count will include metamyelocytes, myelocytes, and promyelocytes. Blood smears from CBCs yielding IG's will be scanned manually for concordance. If this scan disagrees with the automated IG or if promyelocytes are noted, a manual differential will be performed. Immature Gran Absolute 0.01 0.00 - 0.04 x10(3)/[facility] Blood 07/23/2022 11:5 5 AM EDT 07/23/2022 12:07 PM EDT Narrative Resulting Agency Comment Spec In Lab Lalit Mcmahon MD HEMATOLOGY ORDERABLE S [facility] [place] [address] * Hemogram (07/23/2022 11:55 AM EDT) White Blood Cell 6.6 4.0 - 9.5 x10(3)/[facility] Red Blood Cell 4.50 4.00 - 5.21 x10(6)/[facility] Hemoglobin 13.7 11.7 - 15.5 g/dL [facility] Hematocrit 42.5 35.7 - 45.8 % [facility] Mean Cell Volume 94.4 82.6 - 94.4 fL [facility] Mean Cell Hemoglobin 30.4 27.1 - 32.0 pg [facility] Mean Cell Hemoglobin Concentration 32.2 31.7 - 35.0 g/dL [facility] Platelet 193 145 - 357 x10(3)/[facility] RDW Standard Deviation 45.5 37.0 - 46.0 fL [facility] RDW coefficient of variation 13.2 11.5 - 14.1 % [facility] Mean Platelet Volume 9.5 7.6 - 12.9 fL [facility] NRBC% auto 0.0 % [facility] NRBC Absolute 0.000 0.000 - 0.000 x10(3)/mcL [facility] Blood 07/23/2022 11:5 5 AM EDT 07/23/2022 12:07 PM EDT Narrative Resulting Agency Comment Spec In Lab Lalit Mcmahon MD HEMATOLOGY ORDERABLE S [facility] [address] [address] * (ABNORMAL) BMP w/fasting Glucose (07/23/2022 11:55 AM EDT) Glucose Fasting 110(H) 65 - 99 mg/dL [facility] Comment: ?Fasting* Glucose Interpretive Criteria [...] of Diabetes Mellitus, Position Statement from the [place] [employer]. ??Diabetes Care, Volume 33, Supplement 1, Mar 2009 Blood Urea Nitrogen 23(H) 8 - 18 mg/dL [facility] Creatinine 1.07 0.70 - 1.20 mg/dL [facility] Sodium 141 135 - 145 mmol/L [facility] Potassium 4.8 3.5 - 5.0 mmol/L [facility] Comment: Please note: ??Patients with WBC >100,000 may have falsely elevated Potassium levels. ??For accurate Potassium quantification in these patients send serum separator tube (gold top) for subsequent determinations. ??Contact the Clinical Chemistry Laboratory if there are any questions. Chloride 106 98 - 107 mmol/L [facility] Carbon Dioxide 26 22 - 31 mmol/L [facility] Anion Gap 9 5 - 15 mmol/L [facility] Calcium 9.7 8.5 - 10.5 mg/dL [facility] Est Glomerular Filtration Rate 55(L) >=60 mL/min/1. 73 m?? [facility] Comment: This patient's estimated GFR [...] Mcmahon MD CHEMISTRY ORDERABLES Performing Organization Address [facility] [[email or web address]] Co de Phone Number [facility] [place] [address] * Prothrombin Time (07/23/2022 11:55 AM EDT) Prothrombin Time 11.7 9.4 - 12.5 sec [facility] International Normalization Ratio 1.0 [facility] Comment: An INR <2.0 indicates [...] Performing Organization Address City/[facility] [[email or web address]] Co de Phone Number [facility] [place] [address] documented in this encounter Visit Diagnoses Diagnosis HFrEF (heart failure with reduced ejection fraction)- Primary Left bundle branch block Other left bundle branch block Nonischemic cardiomyopathy Other primary cardiomyopathies Cardiac resynchronization therapy defibrillator (SECURITY TECHNICIAN-D) in place Left bundle branch block Other [...] Routine documented in this encounter Care Teams Batch Mixing Truck Driver Relationship Specialty Start Date End Date Lolly Oliveira MD [address] [place] [address] PCP - General 07/17/13 documented as of this encounter
--- OUTSIDE RECORDS SUMMARY | 2024-01-14 11:07 | XMS_ITS | Encounter Summary ---
[place] [address] Care Team Providers Care Technician Biological Health Name Role Phone Lolly Oliveira MD Primary Care Provider [phone] Encounter Details Date Type Department Care Team [...] AM EST Hospital Encounter Non-[place] [address] Arrived documented as of this encounter Visit Diagnoses Not on filedocumented in this encounter Care Teams Technician Biological Health Relationship Specialty Start Date End Date Lolly Oliveira MD [address] [place] [address] PCP - General 07/17/13 documented as of this encounter
--- OUTSIDE RECORDS SUMMARY | 2024-01-14 11:07 | XMS_ITS | Encounter Summary ---
Author Organization [facility] [place] [address] Care Team Providers Care Knit Goods Mender Name Role Phone Lolly Oliveira MD Primary Care Provider [phone] Reason for Visit * Reason Onset Date Comments Pre Procedure Call 07/01/2022 Encounter Details Date Type Department Care Team (Late st Contact Info) Description 07/01/2022 Telephone Cardiology at [address] [id number] Rosenda Sutton RN Pre Procedure Call Social History Tobacco Use Types Packs/Day Years Used Date Smoking Tobacco: Never Sex and Gender Information Value Date Recorded Sex Assigned at Not on file Gender Identity Not on file Sexual Orientation Not on file documented as of this encounter Miscellaneous Notes * Telephone Encounter - Rosenda Sutton RN - 07/01/2022 9:30 AM EDTSummary: Pre Procedure Call: VULCANIZER OPERATOR implant EP SCIENTIFIC TECHNICAL WRITER COORDINATION CHECKLIST Patient Name: Luna Mott Patient Performing Border Guard: Lalit Mcmahon Referring Provider: Lolly Oliveira Date of Procedure: 07/23/22 Arrival Time/ Case Time: 12:00 pm / 1:00 pm Check In Location: Post Secondary Professional Desk 4W Date Patient was Called: 07/01/22 Procedure: VULCANIZER OPERATOR Company: [employer] Type: VULCANIZER OPERATOR-D Laterality: LEFT Orders: Yes Lab Orders: Yes Anesthesia: GA Discharge Plan/Disposition: OVERNIGHT/SSU Med Instructions: DIURETIC - hold Lasix the AM of procedure JENINFER - hold lisinopril the AM of procedure [...] overnight , understands that they will need commercial relief driver on day of discharge Notified pt that Goff catheter may be placed on day of procedure depending on type & duration of case. documented in this encounter Plan of Treatment Upcoming Encounters Date Type Department Care Team (Late st Contact Info) Description 01/16/2024 10:00 AM [facility] Hospital Encounter Non-[place] [address] Arrived documented as of this encounter Visit Diagnoses Not on filedocumented in this encounter Care Teams Knit Goods Mender Relationship Specialty Start Date End Date Lolly Oliveira MD [address] [place] [address] PCP - General 07/17/13 documented as of this encounter
--- OUTSIDE RECORDS SUMMARY | 2024-01-14 11:07 | XMS_ITS | Encounter Summary ---
Author Organization [place] [address] Care Team Providers Care Bead Forming Machine Operator Name Role Phone Lolly Oliveira MD Primary Care Provider [phone] Reason for Visit * Diagnostic Test (Routine) - Closed Specialty Diagnoses / Procedures Referred By Contac t Referred To Contact Radiology Diagnoses Left bundle branch block Nonischemic cardiomyopathy Procedures MRI Cardiac Morphology Function With Flow Velocity Quantification wwo Contrast MRI Cardiac Morphology Function wwo Contrast Lalit Mcmahon MD [facility] [place] [address] [facility] [place] [address] Referral ID Status Reason Start Date Expiration Date V isits Requested Visits Authorized [id number] Closed Specialty Service Requested 05/06/2022 11/07/2023 2 1 Encounter Details Date Type Department Care Team (Latest Contact Info) Description 07/14/2022 9:09 AM EDT - 07/14/2022 11:59 PM EDT Hospital [place] [address] Lalit Mcmahon MD [facility] [place] [address] Discharge Disposition: Home Social History Tobacco Use [...] with spacer fluticasone propionate (Flonase) 50 mcg/actuation [place], Suspension 1 spray by Each Nare route [...] AM EST Hospital Encounter Non-Invasive [place] [address] Arrived documented as of [...] mLs documented in this encounter Care Teams Bead Forming Machine Operator Relationship Specialty Start Date End Date Lolly Oliveira MD [address] [place] [address] PCP - General 07/17/13 documented as of this encounter
--- OUTSIDE RECORDS SUMMARY | 2024-01-14 11:07 | XMS_ITS | Encounter Summary ---
Author Organization [facility] [place] [address] Care Team Providers Care Patrol Community Service Officer Name Role Phone Lolly Oliveira MD Primary Care Provider [phone] Reason for Visit * Reason Comments Skin Check Encounter Details Date Type Department Care Team (Late st Contact Info) Description 11/23/2014 10:00 AM EDT Office Visit Dermatology at [address] [address] Clay Ramírez MD [address] [facility] [place] [address] Dermatofibroma; Nevus; Solar lentigo Discharge Disposition: Home [...] [facility] Hospital Encounter Non-[place] [address] Arrived documented as of this encounter Visit Diagnoses Diagnosis Dermatofibroma Benign neoplasm of skin, site unspecified Nevus Benign neoplasm of skin, site unspecified Solar lentigo Other dyschromia documented in this encounter Care Teams Patrol Community Service Officer Relationship Specialty Start Date End Date Lolly Oliveira MD [address] [place] [address] PCP - General 07/17/13 documented as of this encounter
--- OUTSIDE RECORDS SUMMARY | 2024-01-14 11:07 | XMS_ITS | Encounter Summary ---
Author Organization [place] [address] Care Team Providers Care Glass Scullion Name Role Phone Lolly Oliveira MD Primary Care Provider [phone] Reason for Referral * Diagnostic Test (Routine) - Closed Specialty Diagnoses / Procedures Referred By Contac t Referred To Contact Radiology Diagnoses Left bundle branch block Nonischemic cardiomyopathy Procedures MRI Cardiac Morphology Function With Flow Velocity Quantification [facility] Contrast MRI Cardiac Morphology Function wwo Contrast Lalit Mcmahon MD [facility] [place] [address] [place] [address] Referral ID Status Reason Start Date Expiration Date V isits Requested Visits Authorized [id number] Closed Specialty Service Requested 05/06/2022 11/07/2023 2 1 Reason for Visit * Diagnostic Test (Routine) - Closed Specialty Diagnoses / Procedures Referred By Contac t Referred To Contact Radiology Diagnoses Left bundle branch block Nonischemic cardiomyopathy Procedures MRI Cardiac Morphology Function With Flow Velocity Quantification o Contrast MRI Cardiac Morphology Function wwo Contrast Lalit Mcmahon MD [facility] [place] [address] [place] [address] Referral ID Status Reason Start Date Expiration Date V isits Requested Visits Authorized [id number] Closed Specialty Service Requested 05/06/2022 11/07/2023 2 1 Encounter Details Date Type Department Care Team (Latest Contact Info) Description 07/14/2022 9:08 AM EDT Hospital Encounter MRI at [facility] [place] [id number] Lalit Mcmahon MD [facility] [place] [address] Left bundle branch block; Nonischemic cardiomyopathy Discharge [...] with spacer fluticasone propionate (Flonase) 50 mcg/actuation [place], Suspension 1 spray by Each Nare route [...] y.o. : 1950 [address] [facility] [address] Female [phone] (home) No relevant phone numbers on file. Lolly Oliveira MD None Allergies Allergen Reactions ??? Sulfa (Sulfonamide Antibiotics) Date/Time of call: July 07, 2022/11:03 AM/ PREVIOUS MRI SCAN? HEIGHT: WEIGHT: SCHEDULED SCAN: MRI CARDIAC MORPHOLOGY FUNCTION WITH FLOW VELOCITY QUANTIFICATION WWO CONTRAST [[id number]] Order Questions Answers Where will study be performed? [facility] Radiology [120] SUBJECTIVE: Very Claustrophobic [...] ( KV ) You must have a front load trash truck driver present when you check in. This patient has been informed that they require a front load trash truck driver to drive them home after this procedure. In the absence of a front load trash truck driver, IR will not be able to sedate for your scan. Pt verbalized understanding of these instructions during the pre-procedure education via phone. Yes Name of front load trash truck driver: Daughter Phone number: PRIOR SCAN DATE/S SEDATION TYPE SUCCESSFUL 07/14/22 MRI Cardiac Morphology Function with Flow Velocity Quantification wwo Contrast Ativan 1mg x 1 dose Pass Revised 08/03/17 documented in this encounter Plan of Treatment Upcoming Encounters Date Type Department Care Team (Late st Contact Info) Description 01/16/2024 10:00 AM [facility] Hospital Encounter [place] [address] Arrived documented as of this encounter Procedures [...] mg documented in this encounter Care Teams Glass Scullion Relationship Specialty Start Date End Date Lolly Oliveira MD [address] [place] [address] PCP - General 07/17/13 documented as of this encounter
--- OUTSIDE RECORDS SUMMARY | 2024-01-14 11:07 | XMS_ITS | Encounter Summary ---
Author Organization [place] [address] Care Team Providers Care Software Design Engineer Name Role Phone Lolly Oliveira MD Primary Care Provider [phone] Reason for Visit * Reason Comments Follow-up Encounter Details Date Type Department Care Team (Late st Contact Info) Description 05/21/2022 8:00 AM EDT Office Visit Dermatology at [address] [phone] Clay Ramírez MD [address] [facility] [place] [address] Psoriasis, guttate Social History Tobacco Use Types [...] [facility] Hospital Encounter Non-[place]vasive [place] [address] Arrived documented as of this encounter Visit Diagnoses Diagnosis Psoriasis, guttate Other psoriasis documented in this encounter Care Teams Software Design Engineer Relationship Specialty Start Date End Date Lolly Oliveira MD [address] [place] [address] PCP - General 07/17/13 documented as of this encounter
--- OUTSIDE RECORDS SUMMARY | 2024-01-14 11:07 | XMS_ITS | Encounter Summary ---
Author Organization [facility] [place] [address] Care Team Providers Care Crown Ironer Name Role Phone Lolly Oliveira MD Primary Care Provider [phone] Encounter Details Date Type Department Care Team (Late Contact Info) Description 01/14/2022 Telephone Dermatology at [address] [address] Nora Meredith LPN Social History [...] return to phototherapy. New order sent to [facility]. Reviewed with patient Dr. Mar recommendation. She agrees with plan of care. Advised patient order will be sent to [facility]. She voiced understanding. documented in this encounter Plan of Treatment Upcoming Encounters Date Type Department Care Team (Late Contact Info) Description 01/16/2024 10:00 AM EST Hospital Encounter Non[place] [address] Arrived documented as of this encounter Visit Diagnoses Not on filedocumented in this encounter Care Teams Crown Ironer Relationship Specialty Start Date End Date Lolly Oliveira MD [address] [place] [address] PCP - General 07/17/13 documented as of this encounter
--- OUTSIDE RECORDS SUMMARY | 2024-01-14 11:07 | XMS_ITS | Encounter Summary ---
Author Organization [facility] [place] [address] Care Team Providers Care Electrical Engineering Technologist Name Role Phone Lolly Oliveira MD Primary Care Provider [phone] Encounter Details Date Type Department Care Team (Latest Contact Info) Description 07/26/2013 9:45 AM EDT - 07/26/2013 11:59 PM EDT Hospital [place] [address] Mammographic microcalcification Social History Tobacco Use Types [...] AM EST Hospital Encounter Non-Invasive [place] [address] Arrived documented as of this encounter Procedures [...] microcalcification documented in this encounter Care Teams Electrical Engineering Technologist Relationship Specialty Start Date End Date Lolly Oliveira MD [address] [place] [address] PCP - General 07/17/13 documented as of this encounter
--- OUTSIDE RECORDS SUMMARY | 2024-01-14 11:07 | XMS_ITS | Encounter Summary ---
Author Organization [facility] [place] [address] Care Team Providers Care Mannequin Coloring Artist Name Role Phone Lolly Oliveira MD Primary Care Provider [phone] Reason for Visit * Auth/Cert (Routine) Specialty Diagnoses / Procedures Referred By Contac t Referred To Contact Diagnoses Left bundle-branch block, unspecified Other cardiomyopathies Left bundle branch block [I44.7]Nonischemic cardiomyopathy [I42.8] Procedures PRG CATH PLMT LEFT HEART CATH & ARTS W/INJ & ANGIO IMG S&I ELECTROPHYSIOLOGY PROCEDURE Lalit Mcmahon MD [facility] [address] [facility] Referral ID Status Reason Start Date Expiration Date Visits Re quested Visits Authorized [id number] 1 1 Encounter Details Date Type Department Care Team (Late st Contact Info) Description 07/23/2022 1:00 PM EDT - 07/23/2022 5:30 PM EDT Surgery [place] [address] Lalit Mcmahon MD [facility] [address] ELECTROPHYSIOLOGY PROCEDURE Social History Tobacco Use Types Packs/Day Years Used Date Smoking Tobacco: Never Tobacco Cessation:Counseling Given: Not Answered Alcohol Use Standard Drinks/Week Comments Not Currently 0 (1 standard drink = 0.6 oz pur e alcohol) [facility] Inpatient Questions Answer Date Recorded Does Anyone [...] Luna Mott Patient Age: 71 y.o. Language: Argentine Race: White Ethnicity: Not nor Admit date: 07/23/2022 Discharge date and time: 07/24/22 Attending Physician: Lalit Mcmahon MD Discharge Physician: Lalit Mcmahon MD Follow-up Recommendations for Providers: - s/p PURLER-D implant - post implant QRS 130 ms - reviewed post-implant instructions - no medication changes - Follow up in device clinic for wound/device check in ~10 days ([facility]) Inpatient Provider Contact Information: Cardiac Electrophysiology - Discharge Diagnoses (Hospital Problems) and Secondary Diagnoses (Chronic Problems): Active Hospital Problems Diagnosis ??? HFrEF (heart failure with reduced ejection fraction) Resolved Hospital Problems No resolved problems to display. Active Non-Hospital Problems Diagnosis ??? Dermatofibroma ??? Nevus ??? Solar lentigo Operations/Major Procedures: 07/23/22: [facility] PURLER-D implant History of Presentation: 71 y.o. female with a history of HFrEF, LBBB, QRS >150, NYHA II who is POD#1 of PURLER-D implant ([employer]). Hospital Course: Elective admission for PURLER-D implant Admitted post-implant for pain management, telemetry [...] (heart failure with reduced ejection fraction) [I50.20] PURLER-D implant Admission Condition: good Indication for Admission: [...] g Refills: 3 fluticasone propionate 50 mcg/actuation [place], Suspension Commonly known as: Flonase 1 spray [...] the incision. Make sure to use a shade cloth finisher (such as a towel) in [...] F. The office scheduling phone number is [phone]. ARM MOVEMENT RESTRICTIONS POST-IMPLANT - Do not [...] please call the Cardiac ElectrophysiologyTriage Nurse at [phone], option 3. General Instructions None Discharge References/Attachments None Lalit Mcmahon MD S Cardiac Electrophysiology 07/24/2022 12:33 PM documented in this encounter Discharge Instructions * Patient Instructions* Fadi Nunez MD - 07/24/2022 8:10 AM EDT FINAL ICD/PACEMAKER RECOMMENDATIONS: 1. Standard post implant discharge instructions (see below): 2. Medications as listed above. You may use ice packs over the incision. Make sure to use a shade cloth finisher (such as a towel) in [...] F. The office scheduling phone number is [phone]. ARM MOVEMENT RESTRICTIONS POST-IMPLANT - Do not [...] please call the Cardiac ElectrophysiologyTriage Nurse at [phone], option 3. documented in this encounter Medications [...] with spacer fluticasone propionate (Flonase) 50 mcg/actuation [place], Suspension 1 spray by Each Nare route [...] Cardiac Electrophysiology Post-Implant Device Interrogation Luna Mott [id number] 07/24/2022 History: Luna Mott is a 71 y.o. female with a history of HFrEF, LBBB, QRS >150, NYHA II who is POD#1 of PURLER-D implant ([employer]). Overall feels well this morning. Ready [...] WOB Neuro- A&Ox3 Device Interrogation: Data ?? Field Auto Appraiser Model # Serial # Generator [employer] [id number] Atrial Lead [employer] [id number] RV Lead [employer] 0672 [id number] LV Lead [employer] [id number] ?? Diagnostics Pacing Mode: DDD 60-130 Underlying Rhythm: [place] Atrial Episodes: None Ventricular Episodes: None FINAL PROGRAMMING: Pacing: Mode Lower rate (ppm) Upper rate (ppm) ?? DDD 60 130 VF: Rate (bpm) #Antitachycardia pacing First shock energy (J) ?? 200 Quick convert 41 VT: 170 Monitor only Monitor only ? Battery and Leads Impedances (ohms) Sensing (mV) Thresholds HV RA RV LV RA RV LV RA RV LV 73 [phone] (LVa) 7.7 13.1 >25 0.4V @ 0.4 ms 0.4V @ 0.4 ms 0.5 V @ 1.0 ms POD#1 CXR: All leads in nominal positioning Impression: 71 y.o. female who is s/p PURLER-D implant for LBBB, NYHA II, HFrEF. - Appropriate device function post-implant - CXR negative for post-implant complications - Changed sensed AV delay from 130 to 110 Plan: 1. Reviewed standard post-implant discharge instructions (see patient instructions) including arm restrictions, wound care, bathing, and driving 2. No medication changes. 3. Follow up in device clinic for wound/device check in ~10 days ([facility]) Fadi Nunez MD 07/24/2022 Pager: [phone] I met with the patient today and [...] agreement. ? Dr. Lalit Mcmahon, electrophysiology attending ([id number]) * Zaria Wright RN - 07/23/2022 8:28 [...] HF, QRS > 150 ms presents for PURLER-D placement. ROS: Denies recent fevers or chills [...] 0.9) flush 5 mL 5 mL Intravenous [id number] ramos MD ??? sodium chloride 0.9 % [...] HF, QRS > 150 ms presents for PURLER-D placement. Backup would be LBBAP lead. Antibiotics: cefazolin Rationales for, intended benefits and potential risk of planned procedures reviewed. The patient indicated understanding and agreement with the plan. Informed consent signed. Procedure checklist completed. Fadi Nunez MD Cardiac Electrophysiology Fellow [facility] Pager [phone] 07/23/2022 I met with the patient today [...] agreement. ? Dr. Lalit Mcmahon, electrophysiology attending ([id number]) documented in this encounter Miscellaneous Notes * Brief Op Note - Lalit Mcmahon MD - 07/23/2022 4:04 PM EDT Brief Operative Note Patient Name: Luna Mott : [id number] MR#: [id number] Case Date: 07/23/2022 Surgeon: Surgeon(s) and Role: [...] AM EST Hospital Encounter [place] [address] Arrived Scheduled Orders Name Type Priority Associated Diagnoses Orde r Schedule EKG 12 Lead ECG Routine Cardiac resynchronization therapy defibrillator (PURLER-D) in place One Time for 1 Occurrences [...] (Bezet) 522 ms MUSE SYSTEM Calculated R [place] 78 degrees MUSE SYSTEM Calculated T [place] -71 degrees MUSE SYSTEM INTERPRETATION AV dual-paced [...] questions please contact the health day care provider that requested your imaging first. [...] have questions please contactthe health day care provider that requested your imaging first. Lalit Mcmahon MD IMG DX ORDERABLES * ELECTROPHYSIOLOGY PROCEDURE (07/23/2022 1:11 PM EDT) Anatomical Region Laterality Modality Other Narrative 07/23/2022 4:24 PM EDT Table formatting from the original result was not included. BIVENTRICULAR ICD IMPLANTATION Furniture Stainer: Lalit Mcmahon MD Fellow: Fadi Nunez MD [...] lateral branch of the CS in the NIUEAN view. This branch was cannulated with a [...] the entire procedure. LEAD AND GENERATOR DATA: Field Auto Appraiser Model # Serial # Generator [employer] [id number] Atrial Lead [employer] 7841 [id number] RV Lead [employer] 0672 [id number] LV Lead [employer] 4674 [id number] PACE/SENSE DATA: Sensed wave (mV) Threshold (V) [...] (cGycm2) 300 CONCLUSIONS: Successful implantation of a [employer] biventricular ICD for primary prevention and treatment of symptoms related to congestive heart failure. Follow up in EP clinic in 1-2 months. Procedures performed: new ICD system ( cpt 43333-U5); implant LV lead at time of ICD insertion (cpt 81576) I have read, edited and approve of this report: Lalit Mcmahon MD [facility] Cardiac Electrophysiology 07/23/2022 4:22 PM Procedure Note Lalit Mcmahon MD - 07/23/2022 BIVENTRICULAR ICD IMPLANTATION Furniture Stainer: Lalit Mcmahon MD Fellow: Fadi Nunez MD [...] appropriate lateralbranch of the CS in the NIUEAN view. This branch was cannulated with a [...] in the entireprocedure. LEAD AND GENERATOR DATA: Field Auto Appraiser Model # Serial # Generator [employer] [id number] Atrial Lead [employer] 7841 [id number] RV Lead [employer] 0672 [id number] LV Lead [employer] 4674 [id number] PACE/SENSE DATA: Sensed wave (mV) Threshold (V) [...] (cGycm2) 300 CONCLUSIONS: Successful implantation of a [employer] biventricular ICD forprimary prevention and treatment of symptoms related to congestive heartfailure. Follow up in EP clinic in 1-2 months. Procedures performed: new ICD system ( cpt 29309-Q4); implant LV lead attime of ICD insertion (cpt 25681) I have read, edited and approve of this report: Lalit Mcmahon MD S Cardiac Electrophysiology 07/23/2022 4:22 PM Lalit Mcmahon MD EP PROCEDURE ORDERAB LES * POCT Glucose (07/23/2022 12:54 PM EDT) [facility] Signature Glucose, POC 83 65 - 199 mg/dL [facility] Comment: Supplemental ranges: <140 mg/dL before meals <180 mg/dL all other times of the day Blood 07/23/2022 12:5 4 PM EDT 07/23/2022 12:54 PM EDT Lalit Mcmahon MD POINT OF CARE TEST O RDERABLES Performing Organization Address City/[facility]/ZIP Co de Phone Number [facility] [place] [address] * EKG 12 Lead (07/23/2022 12:33 PM EDT) Ventricular rate 72 BPM MUSE SYSTEM Atrial Rate 72 BPM MUSE SYSTEM P-R Interval 158 ms MUSE SYSTEM QRS Duration 176 ms MUSE SYSTEM Q-T Interval 458 ms MUSE SYSTEM QTC Calculated (Bezet) 501 ms MUSE SYSTEM Calculated P [place] 34 degrees MUSE SYSTEM Calculated R [place] 12 degrees MUSE SYSTEM Calculated T [place] -173 degrees MUSE SYSTEM INTERPRETATION Normal sinus rhythm Left bundle branch block Abnormal ECG No previous ECGs available Confirmed by MD Salome, Lalit ([id number]) on 07/23/2022 1:19:03 PM MUSE SYSTEM 07/23/2022 12:3 3 PM EDT 07/23/2022 1:19 PM EDT Lalit Mcmahon MD ECG ORDERABLES Performing Organization Address [facility]/ZIP Co de Phone Number MUSE SYSTEM * Differential, Automated (07/23/2022 11:55 AM EDT) Neutrophil % 62.6 % [facility] Neutrophil Absolute 4.14 1.70 - 6.10 x10(3)/[facility] Lymph % 27.0 % [facility] Lymphocytes Abs 1.8 0.9 - 3.2 x10(3)/[facility] Monocyte % 7.3 % [facility] Monocyte Abs 0.5 0.3 - 0.9 x10(3)/[facility] Eos % 2.3 % [facility] Eosinophils Abs 0.2 0.0 - 0.4 x10(3)/[facility] Basophil % 0.6 % [facility] Baso Absolute 0.0 0.0 - 0.1 x10(3)/[facility] Immature Gran % 0.20 % [facility] Comment: Immature granulocytes(IG's)percentage and absolute count will include metamyelocytes, myelocytes, and promyelocytes. Blood smears from CBCs yielding IG's will be scanned manually for concordance. If this scan disagrees with the automated IG or if promyelocytes are noted, a manual differential will be performed. Immature Gran Absolute 0.01 0.00 - 0.04 x10(3)/[facility] Blood 07/23/2022 11:5 5 AM EDT 07/23/2022 12:07 PM EDT Narrative Resulting Agency Comment Spec In Lab Lalit Mcmahon MD HEMATOLOGY ORDERABLE S [facility] [place] [address] * Hemogram (07/23/2022 11:55 AM EDT) White Blood Cell 6.6 4.0 - 9.5 x10(3)/[facility] Red Blood Cell 4.50 4.00 - 5.21 x10(6)/[facility] Hemoglobin 13.7 11.7 - 15.5 g/dL [facility] Hematocrit 42.5 35.7 - 45.8 % [facility] Mean Cell Volume 94.4 82.6 - 94.4 fL [facility] Mean Cell Hemoglobin 30.4 27.1 - 32.0 pg [facility] Mean Cell Hemoglobin Concentration 32.2 31.7 - 35.0 g/dL [facility] Platelet 193 145 - 357 x10(3)/[facility] RDW Standard Deviation 45.5 37.0 - 46.0 fL [facility] RDW coefficient of variation 13.2 11.5 - 14.1 % [facility] Mean Platelet Volume 9.5 7.6 - 12.9 fL [facility] NRBC% auto 0.0 % [facility] NRBC Absolute 0.000 0.000 - 0.000 x10(3)/[facility] Blood 07/23/2022 11:5 5 AM EDT 07/23/2022 12:07 PM EDT Narrative Resulting Agency Comment Spec In Lab Lalit Mcmahon MD HEMATOLOGY ORDERABLE S [facility] [place] [address] * (ABNORMAL) BMP w/fasting Glucose (07/23/2022 11:55 AM EDT) Glucose Fasting 110(H) 65 - 99 mg/dL [facility] Comment: ?Fasting* Glucose Interpretive [...] of Diabetes Mellitus, Position Statement from the [employer]. ??Diabetes Care, Volume 33, Supplement 1, Mar 2009 Blood Urea Nitrogen 23(H) 8 - 18 mg/dL [facility] Creatinine 1.07 0.70 - 1.20 mg/dL [facility] Sodium 141 135 - 145 mmol/L [facility] Potassium 4.8 3.5 - 5.0 mmol/L [facility] Comment: Please note: ??Patients with WBC >100,000 may have falsely elevated Potassium levels. ??For accurate Potassium quantification in these patients send serum separator tube (gold top) for subsequent determinations. ??Contact the Clinical Chemistry Laboratory if there are any questions. Chloride 106 98 - 107 mmol/L [facility] Carbon Dioxide 26 22 - 31 mmol/L [facility] Anion Gap 9 5 - 15 mmol/L [facility] Calcium 9.7 8.5 - 10.5 mg/dL [facility] Est Glomerular Filtration Rate 55(L) >=60 mL/min/1. 73 m?? [facility] Comment: This patient's [...] Mcmahon MD CHEMISTRY ORDERABLES Performing Organization Address [facility] Co de Phone Number [facility] [place] [address] * Prothrombin Time (07/23/2022 11:55 AM EDT) Prothrombin Time 11.7 9.4 - 12.5 sec [facility] International Normalization Ratio 1.0 [facility] Comment: An INR <2.0 [...] S Performing Organization Address City/[facility] Co de Phone Number [facility] [place] [address] documented in this encounter Visit Diagnoses Diagnosis HFrEF (heart failure with reduced ejection fraction)- Primary Left bundle branch block Other left bundle branch block Nonischemic cardiomyopathy Other primary cardiomyopathies Cardiac resynchronization therapy defibrillator (PURLER-D) in place Left bundle branch block Other [...] 10 mg, Oral, DAILY, First dose on Mrya 07/23/22 at 1800, Until Discontinued, This medication [...] Routine documented in this encounter Care Teams Mannequin Coloring Artist Relationship Specialty Start Date End Date Lolly Oliveira MD [address] [place] [address] PCP - General 07/17/13 documented as of this encounter
--- OUTSIDE RECORDS SUMMARY | 2024-01-14 11:07 | XMS_ITS | Encounter Summary ---
Author Organization [facility] [place] [address] Care Team Providers Care Executive Director Name Role Phone Lolly Oliveira MD Primary Care Provider [phone] Encounter Details Date Type Department Care Team (Late st Contact Info) Description 10/09/2021 Telephone Dermatology at [address] [address] Nora Meredith LPN Social [...] [place] [facility] Encounter Non[place] [address] Arrived documented as of this encounter Visit Diagnoses Not on filedocumented in this encounter Care Teams Executive Director Relationship Specialty Start Date End Date Lolly Oliveira MD [address] [place] [address] PCP - General 07/17/13 documented as of this encounter
--- OUTSIDE RECORDS SUMMARY | 2024-01-14 11:07 | XMS_ITS | Encounter Summary ---
Author Organization [facility] [place] [address] Care Team Providers Care Stemming Machine Operator Name Role Phone Lolly Oliveira MD Primary Care Provider [phone] Encounter Details Date Type Department Care Team (Latest Contact Info) Description 07/17/2013 8:40 AM EDT - 07/17/2013 11:59 PM EDT Hospital Encounter XRay at [address] [place] [phone] CLINIC, [facility] Discharge Disposition: Home Social [...] AM EST Hospital Encounter [place] [address] Arrived documented as of this encounter Visit Diagnoses Not on filedocumented in this encounter Care Teams Stemming Machine Operator Relationship Specialty Start Date End Date Lolly Oliveira MD [address] [place] [address] PCP - General 07/17/13 documented as of this encounter
--- OUTSIDE RECORDS SUMMARY | 2024-01-14 11:07 | XMS_ITS | Encounter Summary ---
Author Organization [facility] Address [facility] [place] [address] Care Team Providers Care Pipelayer Name Role Phone Lolly Oliveira MD Primary Care Provider [phone] Encounter Details Date Type Department Care Team (Late st Contact Info) Description 07/16/2022 Telephone Cardiology at [address] [phone] Lalit Mcmahon MD [facility] [place] [address] Social History Tobacco Use Types Packs/Day Years [...] her nonischemic cardiomyopathy. She is scheduled for COLOR MAKER FORMULATOR-D implantation next week and looks forward to the procedure. We will see each other next week. Lalit Mcmahon MD [facility] Cardiac Electrophysiology 07/16/2022 8:52 AM documented in this encounter Plan of Treatment Upcoming Encounters Date Type Department Care Team (Late st Contact Info) Description 01/16/2024 10:00 AM EST Hospital Encounter Non-Invasive [place] [address] Arrived documented as of this encounter Visit Diagnoses Not on filedocumented in this encounter Care Teams Pipelayer Relationship Specialty Start Date End Date Lolly Oliveira MD [address] [place] [address] PCP - General 07/17/13 documented as of this encounter
--- OUTSIDE RECORDS SUMMARY | 2024-01-14 11:07 | XMS_ITS | Encounter Summary ---
[place] [address] Care Team Providers Care Patient Experience Coordinator Name Role Phone Lolly Oliveira MD Primary Care Provider [phone] Encounter Details Date Type Department Care Team (Late st Contact Info) Description 04/09/2022 Refill Dermatology at [address] [address] Nora Meredith, [place] LOW TRUCK DRIVER Social History Tobacco Use Types Packs/Day Years [...] [facility] Hospital Encounter [place] [address] Arrived documented as of this encounter Visit Diagnoses Not on filedocumented in this encounter Care Teams Patient Experience Coordinator Relationship Specialty Start Date End Date Lolly Oliveira MD [address] [place] [address] PCP - General 07/17/13 documented as of this encounter
--- OUTSIDE RECORDS SUMMARY | 2024-01-14 11:07 | XMS_ITS | Encounter Summary ---
Author Organization [facility] Address [facility] [place] [address] Care Team Providers Care Library Director Name Role Phone Lolly Oliveira MD Primary Care Provider [phone] Reason for Visit * Auth/Cert (Routine) Specialty Diagnoses / Procedures Referred By Contac t Referred To Contact Diagnoses Left bundle-branch block, unspecified Other cardiomyopathies Left bundle branch block [I44.7]Nonischemic cardiomyopathy [I42.8] Procedures PRG CATH PLMT LEFT HEART CATH & ARTS W/INJ & ANGIO IMG S&I ELECTROPHYSIOLOGY PROCEDURE Lalit Mcmahon MD [facility] [place] [address] [facility] Referral ID Status Reason Start Date Expiration Date Visits Re quested Visits Authorized [id number] 1 1 Encounter Details Date Type Department Care Team (Late st Contact Info) Description 07/23/2022 1:08 PM EDT Anesthesia [place] [address] Monae Gonzalez MD [facility] [place] [address] Maria Elena Snyder CRNA [facility] [place] [address] Anesthesia Record Procedure Summary Procedure Name Responsible [...] 1307; median cubital vein (antecubital fossa), right; jtrb-jjl-nanigq catheter system; Anatomical Landmarks; 20 gauge; 07/24/22; [...] 1343; metacarpal vein (top of hand), left; irnw-fjp-svwede catheter system; Anatomical Landmarks; US Not Used; [...] Date: 07/23/22 Room / Location: [facility] A-LAB ROOM 3 / [facility] EP LABS Anesthesia Start: 1308 Anesthesia Stop: 1633 Procedure: ELECTROPHYSIOLOGY PROCEDURE (Left) Diagnosis: Left bundle branch block Nonischemic cardiomyopathy (Left bundle branch block [I44.7]Nonischemic cardiomyopathy [I42.8]) Providers: Lalit Mcmahon MD Responsible Provider: Monae Gonzalez MD Anesthesia Type: general ASA Status: 4 All Anesthesia Providers: Anesthesiologist: Monae Gonzalez MD; Dominique Sen MD [employer]S TEACHER: Maria Elena Snyder CRNA Vitals Value Taken Time BP 131/46 07/23/22 1700 Temp 36.7 ??C (98.1 ??F) 07/23/22 1627 Pulse 67 07/23/22 1703 Resp 14 07/23/22 1703 SpO2 98 % 07/23/22 1703 Pain Level Vitals shown include unvalidated device data. Patient Location: PACU/[facility] Level of Consciousness: Conscious but [...] and Nonischemic CM (EF 15-20%)who presents for JAVA SOLUTIONS ARCHITECT-D. No prior anesthetic records. Pt states that [...] daughter/son and patient who. Plan discussed with HIGH SCHOOL INDUSTRIAL ARTS TEACHER. Anesthesia Screening documented in this encounter Plan of Treatment Upcoming Encounters Date Type Department Care Team (Late st Contact Info) Description 01/16/2024 10:00 AM [facility] Hospital Encounter Non-[place] [address] Arrived documented as of this [...] mg documented in this encounter Care Teams Library Director Relationship Specialty Start Date End Date Lolly Oliveira MD [address] [place] [address] PCP - General 07/17/13 documented as of this encounter
--- OUTSIDE RECORDS SUMMARY | 2024-01-14 11:07 | XMS_ITS | Encounter Summary ---
[place] [address] Care Team Providers Care Self Defense Instructor Name Role Phone Lolly Oliveira MD Primary Care Provider [phone] Encounter Details Date Type Department Care Team (Latest Contact Info) Description 07/26/2013 9:45 AM EDT - 07/26/2013 11:59 PM EDT Hospital [place] [address] Mammographic microcalcification Social History Tobacco Use Types [...] EST Hospital Encounter Non-Invasive [place] [address] Arrived documented as of this encounter Procedures Procedure Name Priority Date/Time Associated Diagnosis Comments SURGICAL PATHOLOGY REPORT Routine 07/26/2013 12:12 PM EDT MAMMO SPECIMEN IMAGING DURING BIOPSY Routine 07/26/2013 11:58 AM EDT Mammographic microcalcification documented in this encounter Results * Surgical Pathology Report (07/26/2013 12:12 PM EDT) Final Diagnosis ? [facility] ? Provider: ?? ELENO CHRISTIAN ?? Pt. Name: ?? JING ALVARENGA ? Acc #: ?[id number] ?Pt. ? Col Date: ?? 07/26/2013 ? [...] fibrofatty needle core biopsies. ? [facility] ? Provider: ?? ELENO CHRISTIAN ?? Pt. Name: ?? JING ALVARENGA ? Acc #: ?[id number] ?Pt. ? Col Date: ?? 07/26/2013 ? [...] FCD, adenosis, DCIS 07/28/2013 8:29 AM EDT [facility] BREAST STRUCTURE / Unknown 07/26/2013 12:12 PM EDT 07/26/2013 12:12 PM EDT Eleno Christian MD PATHOLOGY/CYTOLOGY O RDERABLES Performing Organization Address City/State/[facility] Co or Phone Number [facility] [place] [address] * Mammo Specimen Imaging During Biopsy (07/26/2013 [...] microcalcification documented in this encounter Care Teams Self Defense Instructor Relationship Specialty Start Date End Date Lolly Oliveira MD [address] [place] [address] PCP - General 07/17/13 documented as of this encounter
--- OUTSIDE RECORDS SUMMARY | 2024-01-14 11:07 | XMS_ITS | Encounter Summary ---
Author Organization Pending [facility] To [place] [address] Care Team Providers Care Manager Licensing Name Role Phone Unavailable Primary Care Provider Unavailabl e Encounter Details Date Type Department Care Team (Late st Contact Info) Description 07/14/2013 [place] [phone] Eleno Christian MD [facility] [place] [address] Social History Tobacco Use Types Packs/Day Years [...] AM EST Hospital Encounter Non-[place] [address] Arrived documented as of this encounter Visit Diagnoses Not on filedocumented in this encounter
--- OUTSIDE RECORDS SUMMARY | 2024-01-14 11:07 | XMS_ITS | Encounter Summary ---
Author Organization [facility] [place] [address] Care Team Providers Care Electrical & Instrumentation Supervisor Name Role Phone Lolly Oliveira MD Primary Care Provider [phone] Reason for Referral * Consultation (Routine) - Closed Specialty Diagnoses / Procedures Referred By Contact Referred To Contact Electrophysiology / Cardiology Diagnoses Left bundle branch block Cardiomyopathy, unspecified type AT MINIMUM PT NEEDS CONSIDERATION FOR DEFIBRILLATOR, ALSO CANDIDATE FOR RESYNCHRONIZATION THERAPY HER QRS IS >0.16 Lolly Oliveira MD [address] [place] [address] [facility] [address] [place] [phone] Referral ID Status Reason Start Date Expiration Date V isits Requested Visits Authorized [id number] Closed Consult, Test & Treat PCP Updated and/or Approved 04/30/2022 04/30/2023 6 6 Encounter Details Date Type Department Care Team (Latest Contact Info) Description 04/30/2022 Transcribe Orders eDH Incoming Referrals [phone] Lolly Oliveira MD [address] [place], [place] [id number] Left bundle branch block; Cardiomyopathy, unspecified type [...] Hospital Encounter Non-[place] [address] Arrived Scheduled Referrals Name Type Priority Associated Diagnoses Orde r Schedule Referral to Cardiology Outpatient Referral Routine Left bundle branch block Cardiomyopathy, Unspecified Type Ordered: 04/30/2022 documented as of this encounter Visit Diagnoses Diagnosis Left bundle branch block Other left bundle branch block Cardiomyopathy, unspecified type documented in this encounter Care Teams Electrical & Instrumentation Supervisor Relationship Specialty Start Date End Date Lolly Oliveira MD [address] [place] [address] PCP - General 07/17/13 documented as of this encounter
--- OUTSIDE RECORDS SUMMARY | 2024-01-14 11:07 | XMS_ITS | Encounter Summary ---
[place] [address] Care Team Providers Care Certified Meeting Professional Name Role Phone Lolly Oliveira MD Primary Care Provider [phone] Encounter Details Date Type Department Care Team (Late st Contact Info) Description 07/17/2013 [place] [address] Lolly Oliveira MD [address] [place], [place] [id number] Social History Tobacco Use Types Packs/Day Years [...] Encounter Non-Invasive [place] [address] Arrived documented as of this encounter Procedures [...] (PERFORMED ON 07/06/13 AND 07/14/13) FROM [facility] DATED 07/17/13: ?? DIAGNOSTIC IMAGING SUMMARY: ?? [...] OUTSIDE MAMMOGRAMS (PERFORMED ON 07/06/13 AND 07/14/13) [facility] DATED 07/17/13: DIAGNOSTIC IMAGING SUMMARY: RIGHT [...] filedocumented in this encounter Care Teams Certified Meeting Professional Relationship Specialty Start Date End Date Lolly Oliveira MD [address] [place] [address] PCP - General 07/17/13 documented as of this encounter
--- OUTSIDE RECORDS SUMMARY | 2024-01-14 11:07 | XMS_ITS | Encounter Summary ---
Author Organization [facility] [place] [address] Care Team Providers Care Gut Puller Name Role Phone Lolly Oliveira MD Primary Care Provider Reason for Visit * Reason Comments Follow-up Encounter Details Date Type Department Care Team (Late st Contact Info) Description 07/02/2022 8:00 AM EDT Office Visit Dermatology at [address] [phone] Clay Ramírez MD [address] [facility] [place] [address] Psoriasis, guttate Social History Tobacco Use Types [...] [facility] Hospital Encounter Non-[place] [address] Arrived documented as of this encounter Visit Diagnoses Diagnosis Psoriasis, guttate Other psoriasis documented in this encounter Care Teams Gut Puller Relationship Specialty Start Date End Date Lolly Oliveira MD [address] [place] [address] PCP - General 07/17/13 documented as of this encounter
--- OUTSIDE RECORDS SUMMARY | 2024-01-14 11:07 | XMS_ITS | Encounter Summary ---
Author Organization [facility] [place] [address] Care Team Providers Care Splicer Machine Operator Name Role Phone Lolly Oliveira MD Primary Care Provider [phone] Reason for Visit * Reason Comments Follow-up Encounter Details Date Type Department Care Team (Late st Contact Info) Description 06/06/2021 8:45 AM EDT Office Visit Dermatology at [address] [address] Clay Ramírez MD [address] [facility] [place] [address] Psoriasis, guttate Social History Tobacco Use Types [...] [facility] Hospital Encounter Non-[place] [address] Arrived documented as of this encounter Visit Diagnoses Diagnosis Psoriasis, guttate Other psoriasis documented in this encounter Care Teams Splicer Machine Operator Relationship Specialty Start Date End Date Lolly Oliveira MD [address] [place] [address] PCP - General 07/17/13 documented as of this encounter
--- OUTSIDE RECORDS SUMMARY | 2024-01-14 11:07 | XMS_ITS | Encounter Summary ---
Author Organization [facility] [place] [address] Care Team Providers Care Resolution Agent Name Role Phone Lolly Oliveira MD Primary Care Provider [phone] Encounter Details Date Type Department Care Team (Latest Contact Info) Description 07/20/2013 9:26 AM EDT - 07/20/2013 11:59 PM EDT Hospital Encounter [place] [address] CLINIC, Lolly So MD [address] [place], [place] [id number] Mammographic microcalcification Discharge Disposition: Home Social History [...] AM EST Hospital Encounter Non[place] [address] Arrived documented as of this encounter Procedures [...] does not layer and, therefore, are not telesales representative of milk of calcium. Again, these [...] does not layer and, therefore, are not telesales representative of milk of calcium. Again, these have an amorphous andpunctate appearance and remain indeterminate. Stereotactic guided biopsy isrecommended. Alia Fraire MD IMG MAMMO ORDERABLES documented in this encounter Visit Diagnoses Diagnosis Mammographic microcalcification documented in this encounter Care Teams Resolution Agent Relationship Specialty Start Date End Date Lolly Oliveira MD [address] [place] [address] PCP - General 07/17/13 documented as of this encounter
--- OUTSIDE RECORDS SUMMARY | 2024-01-14 11:07 | XMS_ITS | Encounter Summary ---
Author Organization [facility] [place] [address] Care Team Providers Care Electrical Systems Designer Name Role Phone Lolly Oliveira MD Primary Care Provider [phone] Encounter Details Date Type Department Care Team (Latest Contact Info) Description 07/26/2013 9:44 AM EDT - 07/26/2013 11:59 PM EDT Hospital [place] [address] CLINIC, Lolly So MD [address] [place], [place] [id number] Mammographic microcalcification Discharge Disposition: Home Social History [...] AM EST Hospital Encounter [place] [address] Arrived documented as of this encounter Procedures [...] are present on specimen digital X-ray. A Journeys-Stereo 13 Cylinder marker clip was placed. Cranio-caudal [...] mLs documented in this encounter Care Teams Electrical Systems Designer Relationship Specialty Start Date End Date Lolly Oliveira MD [address] [place] [address] PCP - General 07/17/13 documented as of this encounter
--- OUTSIDE RECORDS SUMMARY | 2024-01-14 11:07 | XMS_ITS | Encounter Summary ---
Author Organization [facility] [place] [address] Care Team Providers Care Hair Blender Name Role Phone Lolly Oliveira MD Primary Care Provider [phone] Encounter Details Date Type Department Care Team (Late st Contact Info) Description 04/01/2021 3:30 PM EST Office Visit Dermatology at [address] [phone] Clay Ramírez MD [address] [facility] [address] [place] [address] Psoriasis, guttate Social History Tobacco Use Types [...] EST Hospital Encounter Non-Invasive [place] [address] Arrived documented as of this encounter Visit Diagnoses Diagnosis Psoriasis, guttate Other psoriasis documented in this encounter Care Teams Hair Blender Relationship Specialty Start Date End Date Lolly Oliveira MD [address] [place] [address] PCP - General 07/17/13 documented as of this encounter
--- OUTSIDE RECORDS SUMMARY | 2024-01-14 11:07 | XMS_ITS | Encounter Summary ---
Author Organization [facility] [place] [address] Care Team Providers Care Strain Technician Name Role Phone Lolly Oliveira MD Primary Care Provider [phone] Encounter Details Date Type Department Care Team (Late st Contact Info) Description 06/29/2011 Orders [place] [address] Eleno Christian MD [facility] [place] [address] Social History Tobacco Use Types Packs/Day Years [...] AM EST Hospital Encounter Non-[place] [address] Arrived documented as of this encounter Procedures [...] a Non-reportable exam Eleno Christian MD [facility] FILM [facility]RARY ORD ERABLES documented in this encounter Visit Diagnoses Not on filedocumented in this encounter Care Teams Strain Technician Relationship Specialty Start Date End Date Lolly Oliveira MD [address] [place] [address] PCP - General 07/17/13 documented as of this encounter
--- OUTSIDE RECORDS SUMMARY | 2024-01-14 11:07 | XMS_ITS | Encounter Summary ---
Author Organization [facility] [place] [address] Care Team Providers Care Transmission Tester Name Role Phone Lolly Oliveira MD Primary Care Provider [phone] Reason for Referral * Diagnostic Test (Routine) - Closed Specialty Diagnoses / Procedures Referred By Contac t Referred To Contact Radiology Diagnoses Left bundle branch block Nonischemic cardiomyopathy Procedures MRI Cardiac Morphology Function With Flow Velocity Quantification wwo Contrast MRI Cardiac Morphology Function wwo Contrast Lalit Mcmahon MD [facility] [place] [address] [place] [address] Referral ID Status Reason Start Date Expiration Date V isits Requested Visits Authorized [id number] Closed Specialty Service Requested 05/06/2022 11/07/2023 2 1 Encounter Details Date Type Department Care Team (Late st Contact Info) Description 05/06/2022 Orders Only Cardiology at [address] [address] Lalit Mcmahon MD [facility] [place] [address] Left bundle branch block; Nonischemic cardiomyopathy Social [...] EST Hospital Encounter Non-In[place] [address] Arrived documented as of this encounter Results [...] have questions please contact the health care connector that requested your imaging first. ? Narrative [...] who have questions please contactthe health care connector that requested your imaging first. Lalit Mcmahon MD IMG MRI ORDERABLES documented in this encounter Visit Diagnoses Diagnosis Left bundle branch block Other left bundle branch block Nonischemic cardiomyopathy Other primary cardiomyopathies Left bundle branch block Other left bundle branch block Nonischemic cardiomyopathy Other primary cardiomyopathies documented in this encounter Care Teams Transmission Tester Relationship Specialty Start Date End Date Lolly Oliveira MD [address] [place] [address] PCP - General 07/17/13 documented as of this encounter
--- OUTSIDE RECORDS SUMMARY | 2024-01-14 11:07 | XMS_ITS | Encounter Summary ---
Author Organization [facility] [place] [address] Care Team Providers Care Pad Machine Offbearer Name Role Phone Unavailable Primary Care Provider Unavailabl e Encounter Details Date Type Department Care Team (Late st Contact Info) Description 07/04/2012 [place] [address] Eleno Christian MD [facility] [place] [address] Social History Tobacco Use Types Packs/Day Years [...] Encounter Non-Invasive [place] [address] Arrived documented as of this encounter Procedures [...] is a Non-reportable exam Eleno Christian MD [facility] FILM LIBRARY ORD ERABLES documented in this encounter Visit Diagnoses Not on filedocumented in this encounter
--- OUTSIDE RECORDS SUMMARY | 2024-01-14 11:07 | XMS_ITS | Encounter Summary ---
Author Organization [facility] [place] [address] Care Team Providers Care Supercharger Repair Supervisor Name Role Phone Lolly Oliveira MD Primary Care Provider [phone] Encounter Details Date Type Department Care Team (Late st Contact Info) Description 07/26/2013 [place] [address] Eleno Christian MD [facility] DIAGNOST[place] [address] Social History Tobacco Use Types Packs/Day Years [...] AM EST Hospital Encounter Non-[place] [address] Arrived documented as of this encounter Visit Diagnoses Not on filedocumented in this encounter Care Teams Supercharger Repair Supervisor Relationship Specialty Start Date End Date Lolly Oliveira MD [address] [place] [address] PCP - General 07/17/13 documented as of this encounter
--- OUTSIDE RECORDS SUMMARY | 2024-01-14 11:07 | XMS_ITS | Encounter Summary ---
[place] [address] Care Team Providers Care Leisure Travel Agent Name Role Phone Lolly Oliveira MD Primary Care Provider [phone] Encounter Details Date Type Department Care Team [...] AM EST Hospital Encounter Non-[place] [address] Arrived documented as of this encounter Visit Diagnoses Not on filedocumented in this encounter Care Teams Leisure Travel Agent Relationship Specialty Start Date End Date Lolly Oliveira MD [address] [place] [address] PCP - General 07/17/13 documented as of this encounter
--- OUTSIDE RECORDS SUMMARY | 2024-01-14 11:07 | XMS_ITS | Encounter Summary ---
[place] [address] Care Team Providers Care Skull Chopper Name Role Phone Lolly Oliveira MD Primary Care Provider [phone] Encounter Details Date Type Department Care Team [...] AM EST Hospital Encounter Non-[place] [address] Arrived documented as of this encounter Visit Diagnoses Not on filedocumented in this encounter Care Teams Skull Chopper Relationship Specialty Start Date End Date Lolly Oliveira MD [address] [place] [address] PCP - General 07/17/13 documented as of this encounter
--- OUTSIDE RECORDS SUMMARY | 2024-01-14 11:07 | XMS_ITS | Encounter Summary ---
Author Organization [facility] [place] [address] Care Team Providers Care Website Optimization Strategist Name Role Phone Unavailable Primary Care Provider Unavailabl e Encounter Details Date Type Department Care Team (Late st Contact Info) Description 07/14/2013 External Results XRay at [address] [place] [address] Provider, Scanning Social History Tobacco Use Types [...] AM EST Hospital Encounter Non-Invasive Cardiology Lab [facility] [place] [address] Arrived documented as of this encounter Procedures [...]
--- OUTSIDE RECORDS SUMMARY | 2024-01-14 11:07 | XMS_ITS | Encounter Summary ---
Author Organization [facility] [place] [address] Care Team Providers Care Graphic Arts Technician Name Role Phone Lolly Oliveira MD Primary Care Provider [phone] Encounter Details Date Type Department Care Team (Latest Contact Info) Description 07/18/2013 [place] [id number] Alia Fraire MD [facility] [place] [address] Mammographic microcalcification (Primary Dx) Social History Tobacco [...] AM EST Hospital Encounter Non-Invasive [place] [address] Arrived documented as of this encounter Results [...] are present on specimen digital X-ray. A Typekitrk Eviva-Stereo 13 Cylinder marker clip was placed. [...] calcifications are present on specimendigital X-ray. A Typekitrk Eviva-Stereo 13 Cylinder marker clip was placed. [...] does not layer and, therefore, are not client services representative of milk of calcium. Again, [...] does not layer and, therefore, are not client services representative of milk of calcium. Again, these have an amorphous andpunctate appearance and remain indeterminate. Stereotactic guided biopsy isrecommended. Alia Fraire MD IMG MAMMO ORDERABLES documented in this encounter Visit Diagnoses Diagnosis Mammographic microcalcification- Primary Mammographic microcalcification Mammographic microcalcification Mammographic microcalcification Mammographic microcalcification documented in this encounter Care Teams Graphic Arts Technician Relationship Specialty Start Date End Date Lolly Oliveira MD [address] [place] [address] PCP - General 07/17/13 documented as of this encounter
--- OUTSIDE RECORDS SUMMARY | 2024-01-14 11:07 | XMS_ITS | Encounter Summary ---
Author Organization [facility] [place] [address] Care Team Providers Care Mud Car Worker Name Role Phone Lolly Oliveira MD Primary Care Provider [phone] Reason for Visit * Reason Comments Psoriasis Encounter Details Date Type Department Care Team (Late st Contact Info) Description 04/09/2022 1:45 PM EST Office Visit Dermatology at [address] [address] Clay Ramírez MD [address] [facility] [place] [address] Psoriasis, guttate Social History Tobacco Use Types [...] AM EST Hospital Encounter Non-Invasive [place] [address] Arrived documented as of this encounter Visit Diagnoses Diagnosis Psoriasis, guttate Other psoriasis documented in this encounter Care Teams Mud Car Worker Relationship Specialty Start Date End Date Lolly Oliveira MD [address] [place] [address] PCP - General 07/17/13 documented as of this encounter
--- OUTSIDE RECORDS SUMMARY | 2024-01-14 11:07 | XMS_ITS | Encounter Summary ---
[place] [address] Care Team Providers Care Drill Punch Operator Name Role Phone Lolly Oliveira MD Primary Care Provider [phone] Encounter Details Date Type Department Care Team [...] AM EST Hospital Encounter Non[place] [address] Arrived documented as of this encounter Visit Diagnoses Not on filedocumented in this encounter Care Teams Drill Punch Operator Relationship Specialty Start Date End Date Lolly Oliveira MD [address] [place] [address] PCP - General 07/17/13 documented as of this encounter
--- OUTSIDE RECORDS SUMMARY | 2024-01-19 11:09 | XMS_ITS | Encounter Summary ---
Author Organization [facility] Address [address] [place] [address] Care Team Providers Care Senior Data Integration Developer Name Role Phone Lolly Oliveira MD Primary Care Provider [phone] Encounter Details Date Type Department Care Team (Late st Contact Info) Description 04/25/2009 Orders Only [facility] ([facility] [address], [place] [id number] Lolly Oliveira MD [address] [place], [place] [id number] Social History Tobacco Use Types Packs/Day Years Used Date Smoking Tobacco: Never Assessed Comments Unknown Sex and Gender Information Value Date Recorded Sex Assigned at Not on file Legal Sex Female 18:31 EST Gender Identity Not on file Sexual Orientation [...] ? JING ALVARENGA ? Accession #: ? [id number] ? : ? 1950 (Age: 58) ??F ?Collect Date: ? 04/25/2009 ? Location: ? [facility] ? Receive Date: ? 04/26/2009 ? Provider: ?LOLLY OLIVEIRA MD ? Copy to: ? Specimen/Source: ?Pap Test, Cervix/Endocervix, ThinPrep Imaging System ? with manual evaluation ? Last Menstrual Period: ? years ago ? Treatment History: ? Cone biopsy: years ago ? Endometrial biopsy: //-1,Dx superficial strips of inactive endometrial ? lining.2,scant [...] 10:38 ? End of Report ? [facility] 04/25/2009 04/26/2009 us Lolly Oliveira MD PATHOLOGY ORDERABLES Final Resu lt Performing Organization Address [facility]/State/ZIP Co de Phone Number [facility] [address] [place] [address] documented in this encounter Visit Diagnoses Not on filedocumented in this encounter Care Teams Senior Data Integration Developer Relationship Specialty Start Date End Date Lolly Oliveira MD [address] [place] [address] PCP - General 11/13/08 documented as of this encounter
--- OUTSIDE RECORDS SUMMARY | 2024-01-19 11:09 | XMS_ITS | Referral Summary ---
Author Organization [facility] Address [address] [place] [address] Care Team Providers Care Fryline Attendant Name Role Phone Lolly Oliveira MD Primary Care Provider [phone] Social History Tobacco Use Types Packs/Day Years Used Date Smoking Tobacco: Never Assessed Comments Unknown Sex and Gender Information Value Date Recorded Sex Assigned at Not on file Legal Sex Female 18:31 EST Gender Identity Not on file Sexual Orientation Not on file Plan of Treatment Not on file Insurance [facility] MEDICARE Care Teams Fryline Attendant Relationship Specialty Start Date End Date Lolly Oliveira MD [address] [place] [address] PCP - General 11/13/08
--- OUTSIDE RECORDS SUMMARY | 2024-01-19 11:09 | XMS_ITS | Data Portability ---
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 not available 05/21/2023 How Often In The Past Year Have You Used Prescription Medications That Were Not Prescribed To You? Never iqicdwdz38 Information n ot available 05/21/2023 How Often In The Past Year Have You Taken Your Own Prescription Medication More Than The Way It Was Prescribed Or For Different Reasons Than Its Intended Purpose? Never [email or web address] Information no t available 05/21/2023 How Often In The Past Year Have You Used Other Drugs (for Example, Heroin, Cocaine, Meth, Salvia, Inhalants)? Never brpvnufv10 Information not available 05/21/2023 Have You Ever Used IV Drugs? No [email or web address] Information not available 05/21/2023 What Matters Most To You? Staying Healthy, Keeping Active. Getting Exercise And Losing Some Weight rnqydfxv91 Information not available 05/21/2023 During The Past Four Weeks Has Your Physical And Emotional Health Limited Your Social Activities With Family And Friends, Neighbors, Or Groups? Not At All [email or web address] Information not available 05/21/2023 During The Past Four Weeks, Was Someone Available To Help You If You Needed And Wanted Help? (For Example, If You [place] Very Nervous, Lonely, Or Blue; Got Sick And Had To Stay In Bed; Needed Someone To Talk To; Needed Help With Daily Chores; Or Needed Help Just Taking Care Of Yourself.) No- Not At All osmvofdv50 Information n ot available 05/21/2023 During The Past Four Weeks, What Was The Hardest Physical Activity You Could Do For At Least 2 Minutes? Moderate gcctasjg97 Information not available 05/21/2023 Can You Get To Places Out Of Walking Distance Without Help? (For Example, Can You Travel Alone On Buses Or Taxis, Or Drive Your Own Car?) Yes [email or web address] Information not available 05/21/2023 Can You Go Shopping For Groceries Or Clothes Without Someone? s Help? Yes dsynyofj42 Information not available 05/21/2023 Can You Prepare Your Own Meals? Yes sshcymde83 Information not available 05/21/2023 Can You Do Your Housework Without Help? Yes ktqrqgyc04 Information not available 05/21/2023 Because Of Any Health Problems, Do You Need The Help Of Another Person With Your Personal Care Needs Such As Eating, Bathing, Dressing, Or Getting Around The House? No gdkmozut12 Information not available 05/21/2023 Can You Handle Your Own Money Without Help? Yes usvhmhyz02 Information not available 05/21/2023 Are You Having Difficulties Driving Your Car? No ojzngqra85 Information no t available 05/21/2023 Do You Always Fasten Your Seat Belt When You Are In A Car? Yes- Usually cledbiug66 Information not available 05/21/2023 How Often During The Past Four Weeks Have You Been Bothered By Any Of The Following Problems? Falling Or Dizzy When Standing Up? Never [email or web address] Information not available 05/21/2023 Sexual Problems? Never qkcfconk61 Informat ion not available 05/21/2023 Trouble Eating Well? Sometimes caoqwwfn00 Information not available 05/21/2023 Teeth Or Denture Problems? Sometimes banadoxh52 Information not available 05/21/2023 Problems Using The Telephone? Never vnnnxvse13 Information not available 05/21/2023 Tiredness Or Fatigue? Sometimes ahwtvnpx30 Information not available 05/21/2023 Have You Had 2 Or More Falls Or Sustained An Injury With A Fall In The Last Year? No vomdxbgr86 Information no t available 05/21/2023 Do You Have Difficulty With Walking Or Balance? No hggqutpf48 Information not available 05/21/2023 Do You Currently Use A Hearing Device? No nnzccera16 Information not available 05/21/2023 Do You Currently Have Any Trouble With Your Vision? Yes idbfhsdh77 Information no t available 05/21/2023 Do You Exercise For About 20 Minutes Three Or More Days A Week? Yes- Most Of The Time Information not available 05/21/2023 Are There Any Safety Concerns In Your Home (see Attached CDC Pamphlet)? No yajgmvpi66 Information not available 05/21/2023 How Often Do You Have Trouble Taking Medicines The Way You Have Been Told To Take Them? I Always Take Them As Prescribed geuyneys61 Information not available 05/21/2023 How Confident Are You That You Can Control And Manage Most Of Your Health Problems? Very Confident [email or web address] Information not available 05/21/2023 Do You Currently Have Any Difficulty With Your Hearing? No ilyftosv80 Information not available 05/21/2023 Date Of Most Recent SBINS 05/21/2023 [email or web address] Information not available 05/21/2023 What Was The Date Of Your Most Recent Tobacco Screening? 09/01/2023 Information not available 09/01/2023 Has Tobacco Cessation Counseling Been Provided? Yes Information not available 09/01/2023 On What Date Was Tobacco Cessation Counseling Provided? 09/01/2023 Information not available 09/01/2023 Do You Or Have You Ever Used Any Other Forms Of Tobacco Or Nicotine? No [email or web address] Information not available 05/21/2023 Sex: Female Functional Status None recorded. Mental Status None recorded. Family History Relationship Description Onset Age of this Age Resolved Age Notes LastModified by Organization Details LastModified Time Sister Family history of Hypertension [email or web address] Not available 12/2022 03:57:11 Sister Family history of breast cancer opal. Not available 2022 03:57:12 Brother Family history of diabetes mellitus type 1 linchavaui. Not available 2022 03:57:12 Notes:*Problem: updated 2021 [...] preservative 11/28/2015 completed Not Available [facility] 01/15/2023 04:53:41 Influenza, split virus, trivalent, preservative 01/04/2015 completed Not Available [facility] 01/15/2023 04:53:41 Influenza, split virus, quadrivalent, PF 12/21/2018 completed Not Available [facility] 01/15/2023 04:53:41 zoster recombinant 08/30/2018 completed Not Available [facility] 01/15/2023 04:53:42 zoster recombinant 01/26/2018 completed Not Available [facility] 01/15/2023 04:53:42 Influenza, high-dose, quadrivalent, PF 12/04/2020 completed Not Available [facility] 01/15/2023 04:53:43 Influenza, high-dose, quadrivalent, PF 12/11/2019 completed Not Available [facility] 01/15/2023 04:53:43 Influenza, high-dose, quadrivalent, PF 12/29/2021 completed Not Available [facility] 01/15/2023 04:53:43 COVID-19, mRNA, LNP-S, PF, 100 mcg/0.5mL dose or 50 mcg/0.25mL dose 07/09/2021 completed Not Available [facility] 01/15/2023 04:53:43 COVID-19 vaccine, vector-nr, rS-Ad26, PF, 0.5 mL 05/02/2020 completed Not Available [facility] 01/15/2023 04:53:44 SARS-COV-2 (COVID-19) vaccine, UNSPECIFIED 05/31/2020 completed Not Available [facility] 01/15/2023 04:53:44 SARS-COV-2 (COVID-19) vaccine, UNSPECIFIED 01/03/2021 completed Not Available [facility] 01/15/2023 04:53:44 pneumococcal polysaccharide PPV23 07/05/2014 completed Not Available [facility] 2022 04:53:45 Hep B, unspecified formulation 04/14/1993 completed Not Available [facility] 01/15/2023 04:53:45 Hep B, unspecified formulation 09/30/1992 completed Not Available [facility] 01/15/2023 04:53:46 Hep B, unspecified formulation 10/31/1992 completed Not Available [facility] 01/15/2023 04:53:46 influenza, unspecified formulation 12/11/2009 completed Not Available [facility] 01/15/2023 04:53:47 influenza, unspecified formulation 12/13/2012 completed Not Available [facility] 01/15/2023 04:53:47 influenza, unspecified formulation 12/18/2008 completed Not Available [facility] 01/15/2023 04:53:47 influenza, unspecified formulation 12/19/2010 completed Not Available [facility] 01/15/2023 04:53:47 influenza, unspecified formulation 12/30/2006 completed Not Available [facility] 01/15/2023 04:53:48 influenza, unspecified formulation 01/09/2014 completed Not Available [facility] 01/15/2023 04:53:48 influenza, unspecified formulation 01/26/2008 completed Not Available [facility] 01/15/2023 04:53:48 influenza, unspecified formulation 02/16/2012 completed Not Available [facility] 01/15/2023 04:53:48 Influenza, high-dose, quadrivalent, PF 12/17/2022 completed Not Available [facility] 03/19/2023 05:33:03 COVID-19, mRNA, LNP-S, PF, herminoi-sucrose, 30 mcg/0.3 mL 12/28/2022 completed Not Available [facility] 03/19/2023 05:33:03 COVID-19, mRNA, LNP-S, bivalent, PF, 50 mcg/0.5 mL or 25mcg/0.25 mL dose 12/01/2023 completed DENYS Bauer, [facility] 12/20/2023 15:23:33 Respiratory syncytial virus (RSV) vaccine, unspecified 12/01/2023 completed DENYS Bauer, [facility] 12/20/2023 15:24:29 influenza, unspecified formulation 12/01/2023 completed DENYS Bauer, [facility] 12/20/2023 15:25:14 Past Encounters Encounter ID Performer Location Encounter Start Date Encounter Closed Date Diagnosis/Indication Diagnosis SNOMED-CT Code Diagnosis ICD10 Code [id number] LOLLY CORTEZ MD [address] [address] 05/21/2023 10:03:54 05/21/2023 11:37:49 Onychomycosis 073786359 B35.1 Asthma 883709239 J45.90 9 Cardiomyopathy 42517429 I10 Disorder of hip joint 42 3264162 M12.859 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 Hyperlipidemia 39224734 E78.5 Vulval and /or perineal noninflammatory disorders 433834283 N90.9 Adult heal th examination 534757228 Z00.[id number] [address] 09/01/2023 10:23:16 09/01/2023 13:28:10 Vertigo 219220741 R42 Impacted c erumen of bilateral ears 7707695208 408811 H61.23 [id number] LOLLY CORTEZ MD [address] [address] 11/26/2023 07:26:08 11/26/2023 08:10:59 Screening mammography 30521042 Z12.31 Adjustment disorder 1722 6007 F43.20 Asthma 077668141 J45.90 9 Essential hypertension 21196887 I10 Guttate psoriasis 561625 00 L40.4 Cardiomyopathy 50532167 I10 Hyperlipidemia 06247944 E78.5 Prediabetes 209410678 R7 3.03 Health Concerns Section Related Observation LastModified by Organization Detai ls LastModified Time None Recorded Concern Status LastModified by Organization Details LastModified Time None Recorded Advance Directives Directive None Recorded Payers Encounter Date Sequence Insurance Name Policy Number Policy Lema Covered Member ID Lema Member ID Guarantor Name 05/21/2023 1 [place]ANT[place] - [place]PO) [id number] Luna Mott [id number] Luna Mott 09/01/2023 1 [place] - [place]) [id number] Luna Mott [id number] Luna Mott 11/26/2023 1 [place] - [place]) [id number] Luna Mott [id number] Luna Mott Notes Date Note Type Note Provider Name and Address Organization Details Recorded Time 05/21/2023 text/html Thais here today for an annual wellness exam MD [address], [place], [address], [facility]. 05/24/2023 18:32:35 09/01/2023 text/html Luna is a 73-year-old female who presents [...] the name of it. [address], [place], [address], [facility]. 09/01/2023 13:55:07 11/26/2023 text/html Thais here today for follow-up of cardiomyopathy, obesity MD [address], [place], [address], [facility]. 11/28/2023 09:26:44 OBGyn Episode No OBEpisode recorded.
--- OUTSIDE RECORDS SUMMARY | 2024-01-19 11:09 | XMS_ITS | Encounter Summary ---
Author Organization [facility] Address [address] [place] [address] Care Team Providers Care Athletic Events Scorer Name Role Phone Lolly Oliveira MD Primary Care Provider [phone] Encounter Details Date Type Department Care Team (Late st Contact Info) Description 11/13/2020 Lab Requisition [facility] Pathology & Laboratory Medicine - [address] [address] Outr Resulting Lab, Provider Social History Tobacco [...] Unknown 11/13/2020 7:30 EDT 11/13/2020 20:57 EDT us Provider Outr Resulting Lab MICROBIOLOGY - GENER AL ORDERABLES Final Result [facility] [address] [place] [address] * COVID-19 TESTING (11/13/2020 7:30 EDT) COVID-19 rt-PCR Result Negative Negative 11/14/2020 11:46 EDT [facility] Comment: This [...] performed using the med SARS-CoV-2 assay ([employer] on the Med 6800 System Performing Lab Med [address] [facility] Lab 11/14/2020 11:46 EDT [facility] Swab 11/13/2020 7:30 EDT 11/13/2020 20:57 EDT us Provider Outr Resulting Lab MICROBIOLOGY - GENER AL ORDERABLES Final Result Performing Organization Address [facility] Co de Phone Number [facility] [address] [place] [address] documented in this encounter Visit Diagnoses Not on filedocumented in this encounter Care Teams Athletic Events Scorer Relationship Specialty Start Date End Date Lolly Oliveira MD [address] [place] [address] PCP - General 11/13/08 documented as of this encounter
--- OUTSIDE RECORDS SUMMARY | 2024-01-19 11:09 | XMS_ITS | Encounter Summary ---
Author Organization [facility] Address [address] [place] [address] Care Team Providers Care Pearler Name Role Phone Lolly Oliveira MD Primary Care Provider [phone] Encounter Details Date Type Department Care Team (Late st Contact Info) Description 03/21/2019 Lab Requisition [facility] Pathology & Laboratory Medicine - [address] [address] Unknown, Provider, Social History Tobacco Use Types [...] 911 pg/mL 03/22/2019 11:52 EST [facility] Blood VENOUS BLOOD / Unknown 03/16/2019 9:25 EST 03/21/2019 21:35 EST us Provider Unknown CHEMISTRY & BLOOD GAS ORDERA BLES Final Result [facility] [address] [place] [address] documented in this encounter Visit Diagnoses Not on filedocumented in this encounter Care Teams Pearler Relationship Specialty Start Date End Date Lolly Oliveira MD [address] [place] [address] PCP - General 11/13/08 documented as of this encounter
--- OUTSIDE RECORDS SUMMARY | 2024-01-19 11:09 | XMS_ITS | Encounter Summary ---
Author Organization [facility] Address [address] [place] [address] Care Team Providers Care Cracker Sprayer Name Role Phone Lolly Oliveira MD Primary Care Provider [phone] Encounter Details Date Type Department Care Team (Late st Contact Info) Description 04/17/2005 Results Only [facility] conversion [address] [place] [address] Lolly Oliveira MD [address] [place], [place] [id number] Social History Tobacco Use Types Packs/Day Years [...] ? JING ALVARENGA ? Accession #: ? [id number] : ? 1950 (Age: 54) ??F ?Collect Date: ? 04/17/2005 Location: ? [facility] ? Receive Date: ? 04/21/2005 Provider: ?LOLLY OLIVEIRA MD Copy to: ? Specimen/Source: ?ThinPrep Pap Test, Cervix/Endocervix, processed on [employer] ThinPrep Imaging System, with manual evaluation Last Menstrual Period: ? Treatment History: ? Cone biopsy: 25 years ago ? SPECIMEN ADEQUACY ? Satisfactory for Evaluation - transformation zone component present GENERAL CATEGORIZATION ? Negative for Intraepithelial Lesion or Malignancy ? Document reviewed and electronically signed by: ? BERHANE Faulkner(ASCP) ? Report Date: ??04/23/2005 10:56 End of Report [facility] 04/17/2005 04/21/2005 Lolly Oliveira MD PATHOLOGY ORDERABLES Final Resu lt [facility] [address] [place] [address] documented in this encounter Visit Diagnoses Not on filedocumented in this encounter Care Teams Cracker Sprayer Relationship Specialty Start Date End Date Lolly Oliveira MD [address] [place] [address] PCP - General 11/13/08 documented as of this encounter
--- OUTSIDE RECORDS SUMMARY | 2024-01-19 11:09 | XMS_ITS | Clinical Summary ---
Author Organization [facility] Address [address] [place] [address] Care Team Providers Care Greenhouse Transplanter Name Role Phone Lolly Oliveira MD Primary Care Provider [phone] Social History Tobacco Use Types Packs/Day Years Used Date Smoking Tobacco: Never Assessed Comments Unknown Sex and Gender Information Value Date Recorded Sex Assigned at Not on file Legal Sex Female 18:31 EST Gender Identity Not on file Sexual Orientation Not on file Plan of Treatment Health Maintenance Due Date Last Done Comments Hepatitis C Screen 1950 Fall Risk Screening 2013 RSV Immunization ( o r 60+ Years) (1 - 1-dose 75+ series) 08/10/2023 COVID-19 Vaccine (2023- season) 2023 Insurance [facility] MEDICARE Care Teams Greenhouse Transplanter Relationship Specialty Start Date End Date Berrian, Lolly, MD [address] [place] [address] PCP - General 11/13/08
--- OUTSIDE RECORDS SUMMARY | 2024-01-19 11:09 | XMS_ITS | Encounter Summary ---
Author Organization [facility] Address [address] [place] [address] Care Team Providers Care Senior Oracle Database Administrator Name Role Phone Lolly Oliveira MD Primary Care Provider [phone] Encounter Details Date Type Department Care Team (Late st Contact Info) Description 05/27/2021 Lab Requisition [facility] Pathology & Laboratory Medicine - [address] [address] Iman Moran, DO [address] [place], [place] [id number] Encounter for other general examination Social History [...] explore management options, if applicable. 05/30/2021 13:31 [facility] Final Diagnosis A. COLON, POLYP AT 90 CM, BIOPSY/POLYPECTOM Y: - Tubular adenoma. 05/30/2021 13:31 [facility] Attestation By the signature below, the attending physician certifies that they have 1) personally conducted a gross and/or microscopic examination of the described specimen(s), and/or personally interpreted the results of laboratory testing of the described specimen(s), and 2) personally rendered or confirmed the above diagnosis. 05/30/2021 13:31 [facility] at 1331 Clinical History Severe diverticula and polypectomy x1 05/30/2021 13:31 [facility] Gross Description A. Received in formalin labelled with proper patient identification (initials J, K) and colon polyp x1 at 90 cm is a light pineda polypoid tissue measuring 0.2 x 0.2 x 0.2 cm. Submitted intact in A1. MICKEY CARLOS(ASCP) 05/27/2021 19:11 05/30/2021 13:31 [facility] Performing Lab [facility] 05/30/2021 13:31 [facility] Scanned Images 05/30/2021 13:31 [facility] Tissue ENTIRE COLON / Unknown 05/27/2021 11:23 EDT 05/27/2021 16:33 EDT us Iman Moran DO PATHOLOGY ORDERABLES Final Re sult [facility] [address] [place] [address] documented in this encounter Visit Diagnoses Diagnosis Encounter for other general examination documented in this encounter Care Teams Senior Oracle Database Administrator Relationship Specialty Start Date End Date Lolly Oliveira MD [address] [place] [address] PCP - General 11/13/08 documented as of this encounter
--- OUTSIDE RECORDS SUMMARY | 2024-01-19 11:09 | XMS_ITS | Encounter Summary ---
Author Organization [facility] Address [address] [place] [address] Care Team Providers Care Colorman Name Role Phone Lolly Oliveira MD Primary Care Provider [phone] Encounter Details Date Type Department Care Team (Late st Contact Info) Description 04/12/2007 Results Only [facility] conversion [address] [place] [address] Lolly Oliveira MD [address] [place], [place] [id number] Social History Tobacco Use Types Packs/Day Years [...] ? JING ALVARENGA ? Accession #: ? [id number] : ? 1950 (Age: 56) ??F ?Collect Date: ? 04/12/2007 Location: ? [facility] ? Receive Date: ? 04/13/2007 Provider: ?LOLLY OLIVEIRA MD Copy to: ? Specimen/Source: ?ThinPrep Pap Test, Cervix/Endocervix, processed on [employer] ThinPrep Imaging System, with manual evaluation Last [...] and electronically signed by: ? Anahy Kelly, SCT(ASCP) ? Report Date: ??04/18/2007 12:31 End of Report [facility] 04/12/2007 04/13/2007 us Lolly Oliveira MD PATHOLOGY ORDERABLES Final Resu lt [facility] [address] [place] [address] documented in this encounter Visit Diagnoses Not on filedocumented in this encounter Care Teams Colorman Relationship Specialty Start Date End Date Lolly Oliveira MD [address] [place] [address] PCP - General 11/13/08 documented as of this encounter
--- OUTSIDE RECORDS SUMMARY | 2024-01-19 11:09 | XMS_ITS | Encounter Summary ---
Author Organization [facility] Address [address] [place] [address] Care Team Providers Care Carpet Journeyman Name Role Phone Lolly Oliveira MD Primary Care Provider [phone] Encounter Details Date Type Department Care Team (Late st Contact Info) Description 02/20/2020 Lab Requisition [facility] Pathology & Laboratory Medicine - [address] [id number] Outr Resulting Lab, Provider Social History Tobacco [...] in accordance with CLIA regulations, College of [employer]ologists (CAP) guidelines (May 25, 2019), and FDA guidance (May 06, 2019). This test is only for use under the Food and Drug Administration's Emergency Use Authorization. Swab ENTIRE NASOPHARYNX / Unknown 02/19/2020 16:30 EST 02/20/2020 16:09 EST us Provider Outr Resulting Lab MICROBIOLOGY - GENER AL ORDERABLES Final Result [facility] [place] * COVID-19 TESTING (02/19/2020 16:30 EST) COVID-19 rt-PCR Result NEGATIVE Negative 02/22/2020 23:41 EST [facility] Comment: 2019-novel Coronavirus (2019-nCoV) not [...] in accordance with CLIA regulations, College of [employer] Pathologists (CAP) guidelines (May 25, 2019), and FDA guidance (May 06, 2019). This test is only for use under the Food and Drug Administration's Emergency Use Authorization. Performing Lab [facility] 02/22/2020 23:41 EST [facility] Swab 02/19/2020 16:3 0 EST 02/20/2020 16:09 EST us Provider Outr Resulting Lab MICROBIOLOGY - GENER AL ORDERABLES Final Result [facility] [address] [place] [address] [facility] [place], [place] documented in this encounter Visit Diagnoses Not on filedocumented in this encounter Care Teams Carpet Journeyman Relationship Specialty Start Date End Date Lolly Oliveira MD [address] [place] [address] PCP - General 11/13/08 documented as of this encounter
--- OUTSIDE RECORDS SUMMARY | 2024-01-19 11:09 | XMS_ITS | Encounter Summary ---
Author Organization [facility] Address [address] [place] [address] Care Team Providers Care Maintenance Tech Name Role Phone Lolly Oliveira MD Primary Care Provider [phone] Encounter Details Date Type Department Care Team (Late st Contact Info) Description 06/16/2012 Results Only [facility] Laboratory Services - [facility] ([facility]) [address] [place], [place] [id number] Lolly Oliveira MD [address] [place], [place] [phone] Social History Tobacco Use Types Packs/Day Years [...] ? JING ALVARENGA ? Accession #: ? [id number] : ? 1950 (Age: 61) ??F ?Collect [...] Date: ??06/21/2012 11:04 End of Report [facility] 06/16/2012 06/17/2012 us Lolly Oliveira MD PATHOLOGY ORDERABLES Final Resu lt [facility] [address] [place] [address] documented in this encounter Visit Diagnoses Not on filedocumented in this encounter Care Teams Maintenance Tech Relationship Specialty Start Date End Date oLlly Oliveira MD [address] [place] [address] PCP - General 11/13/08 documented as of this encounter
--- OUTSIDE RECORDS SUMMARY | 2024-01-19 11:09 | XMS_ITS | Encounter Summary ---
Author Organization [facility] Address [address] [place] [address] Care Team Providers Care Certified Registered Dental Assistant Name Role Phone Lloly Oliveira MD Primary Care Provider [phone] Encounter Details Date Type Department Care Team (Late st Contact Info) Description 02/11/2021 Lab Requisition [facility] Pathology & Laboratory Medicine - [address] [phone] Outr Resulting Lab, Provider Social History Tobacco [...] Swab 02/11/2021 8:00 EST 02/11/2021 22:22 EST us Provider Outr Resulting Lab MICROBIOLOGY - GENER AL ORDERABLES Final Result [facility] [address] [place] [address] * COVID-19 TESTING (02/11/2021 8:00 EST) COVID-19 rt-PCR Result Negative Negative 02/12/2021 14:[address] [facility] Comment: This test has [...] performed using the med SARS-CoV-2 assay ([employer] on the Med 6800 System Performing Lab Med [address] [facility] 02/12/2021 14:[address] [facility] Swab 02/11/2021 8:00 EST 02/11/2021 22:22 EST us Provider Outr Resulting Lab MICROBIOLOGY - GENER AL ORDERABLES Final Result [facility] [address] [place] [address] documented in this encounter Visit Diagnoses Not on filedocumented in this encounter Care Teams Certified Registered Dental Assistant Relationship Specialty Start Date End Date Lolly Oliveira MD [address] [place] [address] PCP - General 11/13/08 documented as of this encounter
--- OUTSIDE RECORDS SUMMARY | 2024-01-19 11:09 | XMS_ITS | Encounter Summary ---
Author Organization [facility] Address [address] [place] [address] Care Team Providers Care Dental Internship Name Role Phone Lolly Oliveira MD Primary Care Provider [phone] Encounter Details Date Type Department Care Team (Late st Contact Info) Description 04/01/2005 Results Only [facility] conversion [address] [place] [address] Blair Dukes MD [address] [place] [id number] Social History Tobacco Use Types Packs/Day Years [...] ? JING ALVARENGA ? Accession #: ? [id number] ? : ? 1950 (Age: 54) ??F [...] ? Received in Hollande' s fixative labelled [place] and #1 ??terminal ileum bx is a single 0.3 x 0.2 x 0.2 cm tissue, submitted intact as (A). Received in Hollande' s fixative labelled [place] and #2 ??transverse colon bx is a single 0.2 x 0.2 x 0.2 cm tissue, submitted intact as (B). ??(Dr. Lechuga)/[facility] End of Report [facility] 04/01/2005 04/02/2005 15: 24 EST us Blair Dukes MD PATHOLOGY ORDERABLES Final Resul t [facility] [address] [place] [address] documented in this encounter Visit Diagnoses Not on filedocumented in this encounter Care Teams Dental Internship Relationship Specialty Start Date End Date Lolly Oliveira MD [address] [place] [address] PCP - General 11/13/08 documented as of this encounter
--- OUTSIDE RECORDS SUMMARY | 2024-01-19 11:09 | XMS_ITS | Encounter Summary ---
Author Organization [facility] Address [address] [place] [address] Care Team Providers Care Manager Shipping Name Role Phone Unavailable Primary Care Provider Unavailabl e Encounter Details Date Type Department Care Team (Late st Contact Info) Description 11/07/2008 Orders Only [facility] Laboratory Services - [facility] ([facility]) [address] [place] [address] Kenneth Parker MD [address] [place] [address] Social History Tobacco Use Types Packs/Day Years [...] ? JING ALVARENGA ? Accession #: ? [id number] ? : ? 1950 (Age: 58) ??F ? Collect Date: ? 11/07/2008 ? Location: ? [facility] ? Receive Date: ? 11/08/2008 ? Provider: KENNETH PARKER MD ? Copy to: JU BERRIAN MD ? Final Pathologic Diagnosis: ? Endometrium, biopsy: ? 1. ??Superficial strips of inactive endometrial lining. ? 2. ??Scant stroma; insufficient for evaluation. ? Document reviewed and electronically signed by: ? Soco Jordan MD ? Report ??Date: 11/13/2008 16:18 ? By the signature above, the attending physician certifies that he/she has ? personally conducted a gross and/or microscopic examination of the described ? specimens and rendered or confirmed the above diagnosis. ? Specimen(s) Received: ? Endometrial biopsy ? Clinical History: ? Clinical diagnosis code: ??endometrial hyperplasia, 621.30 ? Gross Description: ? Received in formalin labelled Lyle, Jing and EMB is a 0.4 x 0.4 x 0.2 cm aggregate of pineda-brown mucinous material. ??The specimen is submitted ? entirely in one cassette following filtration. (Aaron [place])/lgk ? End of Report ? [facility] 11/07/2008 11/08/2008 16: 51 EDT us Kenneth Parker MD PATHOLOGY ORDERABLES Final Resu lt [facility] [address] [place] [address] documented in this encounter Visit Diagnoses Not on filedocumented in this encounter
--- OUTSIDE RECORDS SUMMARY | 2024-01-19 11:10 | XMS_ITS | Encounter Summary ---
Author Organization [facility] Address [facility] [place] [address] Care Team Providers Care Pairer Inspector Name Role Phone Lolly Oliveira MD Primary Care Provider [phone] Encounter Details Date Type Department Care Team (Late st Contact Info) Description 03/15/2023 Orders Only Cardiology at [address] [address] Lalit Mcmahon MD [facility] [place] [address] Nonischemic cardiomyopathy; Biventricular ICD (implantable cardioverter-defibrill ator) [...] Care Team (Late st Contact Info) Description 04/15/2024 10:00 AM EST Hospital Encounter [place] [address] Arrived documented as of this encounter Visit Diagnoses Diagnosis Nonischemic cardiomyopathy Other primary cardiomyopathies Biventricular ICD (implantable cardioverter-defibrillator) in place documented in this encounter Care Teams Pairer Inspector Relationship Specialty Start Date End Date Lolly Oliveira MD [address] [place] [address] PCP - General 07/17/13 documented as of this encounter
--- OUTSIDE RECORDS SUMMARY | 2024-01-19 11:10 | XMS_ITS | Encounter Summary ---
[place] [address] Care Team Providers Care Design Engineering Specialist Name Role Phone Lolly Oliveira MD Primary Care Provider [phone] Encounter Details Date Type Department Care Team [...] AM EST Hospital Encounter Non-[place] [address] Arrived documented as of this encounter Visit Diagnoses Not on filedocumented in this encounter Care Teams Design Engineering Specialist Relationship Specialty Start Date End Date Lolly Oliveira MD [address] [place] [address] PCP - General 07/17/13 documented as of this encounter
--- OUTSIDE RECORDS SUMMARY | 2024-01-19 11:10 | XMS_ITS | Encounter Summary ---
Author Organization [facility] [place] [address] Care Team Providers Care Roll Scale Worker Name Role Phone Lolly Oliveira MD Primary Care Provider [phone] Encounter Details Date Type Department Care Team (Late st Contact Info) Description 03/15/2023 Telephone Cardiology at [address] [phone] Saranya Ma Social History Tobacco Use Types Packs/Day Years Used Date Smoking Tobacco: Never Alcohol Use Standard Drinks/Week Comments Not Currently 0 (1 standard drink = 0.6 oz pur e alcohol) [facility] Inpatient Questions Answer Date [...] have an echo done at [facility] prior to her appt withidm there on 05/12/23. Message sent to Dr. Mcmahon asking him to put order in if he would like her to have this done. Saranya Ma Sr. Clinical Procedure Attendant Coin Operated Laundry/Sorter Laundry Articles documented in this encounter Plan of Treatment Upcoming Encounters Date Type Department Care Team (Late st Contact Info) Description 04/15/2024 10:00 AM EST Hospital Encounter [place] [address] Arrived documented as of this encounter Visit Diagnoses Not on filedocumented in this encounter Care Teams Roll Scale Worker Relationship Specialty Start Date End Date Lolly Oliveira MD [address] [place] [address] PCP - General 07/17/13 documented as of this encounter
--- OUTSIDE RECORDS SUMMARY | 2024-01-19 11:10 | XMS_ITS | Encounter Summary ---
Author Organization [place] [address] Care Team Providers Care Secretary Receptionist Name Role Phone Lolly Oliveira MD Primary Care Provider [phone] Encounter Details Date Type Department Care Team [...] Encounter Non-Invasive [place] [address] Arrived documented as of this encounter Visit Diagnoses Not on filedocumented in this encounter Care Teams Secretary Receptionist Relationship Specialty Start Date End Date Lolly Oliveira MD [address] [place] [address] PCP - General 07/17/13 documented as of this encounter
--- OUTSIDE RECORDS SUMMARY | 2024-01-19 11:10 | XMS_ITS | Encounter Summary ---
Author Organization [place] [address] Care Team Providers Care Sales Agent Trading Stamps Name Role Phone Lolly Oliveira MD Primary Care Provider [phone] Encounter Details Date Type Department Care Team (Latest Contact Info) Description 07/20/2023 10:00 AM EDT - 07/20/2023 11:59 PM EDT Hospital Encounter [place] [phone] Discharge Disposition: Home Social History Tobacco Use [...] with spacer fluticasone propionate (Flonase) 50 mcg/actuation [place], Suspension 1 spray by Each Nare route daily as needed. documented as of this encounter Plan of Treatment Upcoming Encounters Date Type Department Care Team (Late st Contact Info) Description 04/15/2024 10:00 AM EST Hospital Encounter [place] [address] Arrived documented as of this encounter Procedures [...] filedocumented in this encounter Care Teams Sales Agent Trading Stamps Relationship Specialty Start Date End Date Lolly Oliveira MD [address] [place] [address] PCP - General 07/17/13 documented as of this encounter
--- OUTSIDE RECORDS SUMMARY | 2024-01-19 11:10 | XMS_ITS | Encounter Summary ---
[place] [address] Care Team Providers Care Train Gateman Name Role Phone Lolly Oliveira MD Primary Care Provider [phone] Encounter Details Date Type Department Care Team [...] AM EST Hospital Encounter Non-Invasive [place] [address] Arrived documented as of this encounter Visit Diagnoses Not on filedocumented in this encounter Care Teams Train Gateman Relationship Specialty Start Date End Date Lolly Oliveira MD [address] [place] [address] PCP - General 07/17/13 documented as of this encounter
--- OUTSIDE RECORDS SUMMARY | 2024-01-19 11:10 | XMS_ITS | Encounter Summary ---
Author Organization [facility] [place] [address] Care Team Providers Care Librarian Helper Name Role Phone Lolly Oliveira MD Primary Care Provider [phone] Encounter Details Date Type Department Care Team (Latest Contact Info) Description 10/23/2022 10:00 AM EDT - 10/23/2022 11:59 PM EDT Hospital Encounter Non[place] [address] Discharge Disposition: Home Social History Tobacco Use [...] with spacer fluticasone propionate (Flonase) 50 mcg/actuation [place], Suspension 1 spray by Each Nare route [...] st Contact Info) Description 04/15/2024 10:00 AM [facility] Hospital Encounter Non-Invasive Cardiology Lab [place], [...] on filedocumented in this encounter Care Teams Librarian Helper Relationship Specialty Start Date End Date Lolly Oliveira MD [address] [place] [address] PCP - General 07/17/13 documented as of this encounter
--- OUTSIDE RECORDS SUMMARY | 2024-01-19 11:10 | XMS_ITS | Encounter Summary ---
Author Organization [facility] [place] [address] Care Team Providers Care Corporate Affairs Manager Name Role Phone Lolly Oliveira MD Primary Care Provider [phone] Encounter Details Date Type Department Care Team (Latest Contact Info) Description 01/16/2024 10:00 AM EST - 01/16/2024 11:59 PM EST Hospital Encounter Non[place] [address] Arrived Discharge Disposition: Home Social History Tobacco [...] with spacer fluticasone propionate (Flonase) 50 mcg/actuation [place], Suspension 1 spray by Each Nare route daily as needed. documented as of this encounter Plan of Treatment Upcoming Encounters Date Type Department Care Team (Late st Contact Info) Description 04/15/2024 10:00 AM EST Hospital Encounter [place] [address] Arrived documented as of this encounter Procedures Procedure Name Priority Date/Time Associated Diagnosis Comments PRO ICD INTERROGATION REMOTE UP TO 90 DAYS Routine 11/19/2023 4:31 AM EDT documented in this encounter Results * Cardiac Device Check - Remote (11/19/2023 4:31 AM EDT) Anatomical Region Laterality Modality Other 11/19/2023 4:31 AM EDT Tre Aleman MD IMPLANTABLE CARDIAC DEVICE documented in this encounter Visit Diagnoses Not on filedocumented in this encounter Care Teams Corporate Affairs Manager Relationship Specialty Start Date End Date Lolly Oliveira MD [address] [place] [address] PCP - General 07/17/13 documented as of this encounter
--- OUTSIDE RECORDS SUMMARY | 2024-01-19 11:10 | XMS_ITS | Encounter Summary ---
Author Organization [facility] [place] [address] Care Team Providers Care Railroad Car Repair Supervisor Name Role Phone Lolly Oliveira MD Primary Care Provider [phone] Encounter Details Date Type Department Care Team (Latest Contact Info) Description 04/21/2023 10:00 AM EST - 04/21/2023 11:59 PM EST Hospital Encounter Non[place] [address] Discharge Disposition: Home Social History Tobacco Use [...] with spacer fluticasone propionate (Flonase) 50 mcg/actuation [place], Suspension [...] AM EST Hospital Encounter Non-[place] [address] Arrived documented as of this [...] filedocumented in this encounter Care Teams Railroad Car Repair Supervisor Relationship Specialty Start Date End Date Lolly Oliveira MD [address] [place] [address] PCP - General 07/17/13 documented as of this encounter
--- OUTSIDE RECORDS SUMMARY | 2024-01-19 11:10 | XMS_ITS | Encounter Summary ---
Author Organization [facility] Address [facility] [place] [address] Care Team Providers Care Yarn Washer Name Role Phone Lolly Oliveira MD Primary Care Provider [phone] Encounter Details Date Type Department Care Team (Late st Contact Info) Description 07/16/2022 Telephone Cardiology at [address] [phone] Lalit Mcmahon MD [facility] [place] [address] Social History Tobacco Use Types Packs/Day Years [...] her nonischemic cardiomyopathy. She is scheduled for HUMAN RESOURCES DISTRICT MANAGER-D implantation next week and looks forward to the procedure. We will see each other next week. Lalit Mcmahon MD [facility] Cardiac Electrophysiology 07/16/2022 8:52 AM documented in this encounter Plan of Treatment Upcoming Encounters Date Type Department Care Team (Late st Contact Info) Description 04/15/2024 10:00 AM EST Hospital Encounter Non[place] [address] Arrived documented as of this encounter Visit Diagnoses Not on filedocumented in this encounter Care Teams Yarn Washer Relationship Specialty Start Date End Date Lolly Oliveira MD [address] [place] [address] PCP - General 07/17/13 documented as of this encounter
--- OUTSIDE RECORDS SUMMARY | 2024-01-19 11:10 | XMS_ITS | Encounter Summary ---
[place] [address] Care Team Providers Care Pay Clerk Name Role Phone Lolly Oliveira MD Primary Care Provider [phone] Encounter Details Date Type Department Care Team [...] AM EST Hospital Encounter Non-[place] [address] Arrived documented as of this encounter Visit Diagnoses Not on filedocumented in this encounter Care Teams Pay Clerk Relationship Specialty Start Date End Date Lolly Oliveira MD [address] [place] [address] PCP - General 07/17/13 documented as of this encounter
--- OUTSIDE RECORDS SUMMARY | 2024-01-19 11:10 | XMS_ITS | Encounter Summary ---
Author Organization [facility] [place] [address] Care Team Providers Care Sinker Puller Name Role Phone Lolly Oliveira MD Primary Care Provider [phone] Reason for Visit * Reason Onset Date Comments Post Procedure Call 07/30/2022 Encounter Details Date Type Department Care Team (Late st Contact Info) Description 07/30/2022 Notes Only Cardiology at [address] [phone] Rosenda Sutton, RN Post Procedure Call Social [...] 07/30/2022 9:59 AM EDTSummary: Post Procedure Call: TRUCK CRANE OPERATOR implant EP RN Post-Procedure Note: Date [...] Note: Follow-up Recommendations for Providers: - s/p TRUCK CRANE OPERATOR-D implant - post implant QRS 130 ms - reviewed post-implant instructions - no medication changes - Follow up in device clinic for wound/device check in ~10 days??([facility]) Wound Care: -Wound will heal in [...] st Contact Info) Description 04/15/2024 10:00 AM [facility] Hospital Encounter Non-Invasive [place] [address] Arrived documented as of this encounter Visit Diagnoses Not on filedocumented in this encounter Care Teams Sinker Puller Relationship Specialty Start Date End Date Lolly Oliveira MD [address] [place] [address] PCP - General 07/17/13 documented as of this encounter
--- OUTSIDE RECORDS SUMMARY | 2024-01-19 11:10 | XMS_ITS | Encounter Summary ---
Author Organization [facility] Address [facility] [place] [address] Care Team Providers Care A And P Technician Name Role Phone Lolly Oliveira MD Primary Care Provider [phone] Encounter Details Date Type Department Care Team (Late st Contact Info) Description 01/29/2023 Notes Only Cardiology at [address] [address] [facility] [place] [address] Social History Tobacco Use Types Packs/Day Years Used Date Smoking Tobacco: Never Alcohol Use Standard Drinks/Week Comments Not Currently 0 (1 standard drink = 0.6 oz pur e alcohol) [facility] Inpatient Questions Answer Date Recorded [...] pdf document Date of transmission: 01/29/2023 Device federal district law clerk: BSI Device type: PROTECTIVE SERVICES OFFICER-D Presenting rhythm: /RVP/LVP AP 21% Right MEDICAL PRACTICE ASSISTANT 100% Left MEDICAL PRACTICE ASSISTANT: 100% Battery: 10.5 years [employer] Index rising in setting of increasing S3 intensity, increasing respiratory rate, increasing night heart rate, and increasing mean heart rate. MICKEY Villa 01/29/2023 9:06 AM documented in this encounter Plan of Treatment Upcoming Encounters Date Type Department Care Team (Late st Contact Info) Description 04/15/2024 10:00 AM EST Hospital Encounter Non-Invasive [place] [address] Arrived documented as of this encounter Visit Diagnoses Not on filedocumented in this encounter Care Teams A And P Technician Relationship Specialty Start Date End Date Lolly Oliveira MD [address] [place] [address] PCP - General 07/17/13 documented as of this encounter
--- OUTSIDE RECORDS SUMMARY | 2024-01-19 11:10 | XMS_ITS | Encounter Summary ---
Author Organization [facility] Address [facility] [place] [address] Care Team Providers Care Senior Accountant Analyst Name Role Phone Lolly Oliveira MD Primary Care Provider [phone] Reason for Visit * Auth/Cert (Routine) Specialty Diagnoses / Procedures Referred By Contac t Referred To Contact Diagnoses Left bundle-branch block, unspecified Other cardiomyopathies Left bundle branch block [I44.7]Nonischemic cardiomyopathy [I42.8] Procedures PRG CATH PLMT LEFT HEART CATH & ARTS W/INJ & ANGIO IMG S&I ELECTROPHYSIOLOGY PROCEDURE Lalit Mcmahon MD [facility] [place] [address] [facility] Referral ID Status Reason Start Date Expiration Date Visits Re quested Visits Authorized [id number] 1 1 Encounter Details Date Type Department Care Team (Late st Contact Info) Description 07/23/2022 1:08 PM EDT Anesthesia Event Electrophys[place] [address] [facility] [address] [address] CRNA [facility] [place] [address] Anesthesia Record Procedure Summary Procedure Name Responsible [...] 1307; median cubital vein (antecubital fossa), right; losy-uvh-[id number] catheter system; Anatomical Landmarks; 20 gauge; 07/24/22; [...] 1343; metacarpal vein (top of hand), left; txtv-[id number]-[id number] catheter system; Anatomical Landmarks; US Not Used; [...] Procedure Summary Date: 07/23/22 Room / Location: [facility] A-LAB ROOM 3 / [facility] EP LABS Anesthesia Start: 1308 Anesthesia Stop: 1633 Procedure: ELECTROPHYSIOLOGY PROCEDURE (Left) Diagnosis: Left bundle branch block Nonischemic cardiomyopathy (Left bundle branch block [I44.7]Nonischemic cardiomyopathy [I42.8]) Providers: Lalit Mcmahon MD Responsible Provider: Monae Gonzalez MD Anesthesia Type: general ASA Status: 4 All Anesthesia Providers: Anesthesiologist: Monae Gonzalez MD; Dominique Sen MD PARAMEDIC SUPERVISOR: Maria Elena Snyder CRNA Vitals Value Taken Time BP 131/46 07/23/22 1700 Temp 36.7 ??C (98.1 ??F) 07/23/22 1627 Pulse 67 07/23/22 1703 Resp 14 07/23/22 1703 SpO2 98 % 07/23/22 1703 Pain Level Vitals shown include unvalidated device data. Patient Location: PACU/[facility] Level of Consciousness: Conscious but Sleepy Pain [...] and Nonischemic CM (EF 15-20%)who presents for WORLD HISTORY TEACHER-D. No prior anesthetic records. Pt states that [...] daughter/son and patient who. Plan discussed with PARAMEDIC SUPERVISOR. Anesthesia Screening documented in this encounter Plan of Treatment Upcoming Encounters Date Type Department Care Team (Late st Contact Info) Description 04/15/2024 10:00 AM [facility] Hospital Encounter [place] [address] Arrived documented as of this [...] mg documented in this encounter Care Teams Senior Accountant Analyst Relationship Specialty Start Date End Date Lolly Oliveira MD [address] [place] [address] PCP - General 07/17/13 documented as of this encounter
--- OUTSIDE RECORDS SUMMARY | 2024-01-19 11:10 | XMS_ITS | Encounter Summary ---
Author Organization [facility] [place] [address] Care Team Providers Care Dependency Counselor Name Role Phone Lolly Oliveira MD Primary Care Provider [phone] Reason for Referral * Diagnostic Test (Routine) - Closed Specialty Diagnoses / Procedures Referred By Contac t Referred To Contact Radiology Diagnoses Left bundle branch block Nonischemic cardiomyopathy Procedures MRI Cardiac Morphology Function With Flow Velocity Quantification wwo Contrast MRI Cardiac Morphology Function wwo Contrast Lalit Mcmahon MD [facility] [place] [address] [place] [address] Referral ID Status Reason Start Date Expiration Date V isits Requested Visits Authorized [id number] Closed Specialty Service Requested 05/06/2022 11/07/2023 2 1 Encounter Details Date Type Department Care Team (Late st Contact Info) Description 05/06/2022 Orders Only Cardiology at [address] [address] Lalit Mcmahon MD [facility] [place] [address] Left bundle branch block; Nonischemic cardiomyopathy Social [...] AM EST Hospital Encounter Non-[place] [phone] Arrived documented as of this encounter Results [...] have questions please contact the health rn intensive care unit that requested your imaging first. ? Narrative [...] who have questions please contactthe health rn intensive care unit that requested your imaging first. Lalit Mcmahon MD IMG MRI ORDERABLES documented in this encounter Visit Diagnoses Diagnosis Left bundle branch block Other left bundle branch block Nonischemic cardiomyopathy Other primary cardiomyopathies Left bundle branch block Other left bundle branch block Nonischemic cardiomyopathy Other primary cardiomyopathies documented in this encounter Care Teams Dependency Counselor Relationship Specialty Start Date End Date Lolly Oliveira MD [address] [place] [address] PCP - General 07/17/13 documented as of this encounter
--- OUTSIDE RECORDS SUMMARY | 2024-01-19 11:10 | XMS_ITS | Encounter Summary ---
Author Organization [facility] [place] [address] Care Team Providers Care Aoc Aadc Operations Staff Officer Name Role Phone Lolly Oliveira MD Primary Care Provider [phone] Reason for Visit * Auth/Cert (Routine) Specialty Diagnoses / Procedures Referred By Contac t Referred To Contact Diagnoses Left bundle-branch block, unspecified Other cardiomyopathies Left bundle branch block [I44.7]Nonischemic cardiomyopathy [I42.8] Procedures PRG CATH PLMT LEFT HEART CATH & ARTS W/INJ & ANGIO IMG S&I ELECTROPHYSIOLOGY PROCEDURE Lalit Mcmahon MD [facility] [place] [address] [facility] Referral ID Status Reason Start Date Expiration Date Visits Re quested Visits Authorized [id number] 1 1 Encounter Details Date Type Department Care Team (Late st Contact Info) Description 07/23/2022 1:00 PM EDT - 07/23/2022 5:30 PM EDT Surgery [place] [address] Lalit Mcmahon MD [facility] [place] [address] ELECTROPHYSIOLOGY PROCEDURE Social History Tobacco Use Types [...] MD Follow-up Recommendations for Providers: - s/p SPEECH AND LANGUAGE ASSISTANT-D implant - post implant QRS 130 [...] Solar lentigo Operations/Major Procedures: 07/23/22: [facility] SPEECH AND LANGUAGE ASSISTANT-D implant History of Presentation: 71 y.o. female with a history of HFrEF, LBBB, QRS >150, NYHA II who is POD#1 of SPEECH AND LANGUAGE ASSISTANT-D implant ([employer]). Hospital Course: Elective admission for SPEECH AND LANGUAGE ASSISTANT-D implant Admitted post-implant for pain management, [...] (heart failure with reduced ejection fraction) [I50.20] SPEECH AND LANGUAGE ASSISTANT-D implant Admission Condition: good Indication for [...] Refills: 3 fluticasone propionate 50 mcg/actuation [place], Suspension Commonly known as: Flonase 1 spray [...] F. The office scheduling phone number is [phone]. ARM MOVEMENT RESTRICTIONS POST-IMPLANT - Do not [...] please call the Cardiac ElectrophysiologyTriage Nurse at [phone], option 3. General Instructions None Discharge References/Attachments [...] F. The office scheduling phone number is [phone]. ARM MOVEMENT RESTRICTIONS POST-IMPLANT - Do not [...] please call the Cardiac ElectrophysiologyTriage Nurse at [phone], option 3. documented in this encounter Medications [...] spacer fluticasone propionate (Flonase) 50 mcg/actuation [place], Suspension 1 spray by Each Nare route [...] Cardiac Electrophysiology Post-Implant Device Interrogation Luna Mott [id number] 07/24/2022 History: Luna Mott is a 71 y.o. female with a history of HFrEF, LBBB, QRS >150, NYHA II who is POD#1 of SPEECH AND LANGUAGE ASSISTANT-D implant ([employer]). Overall feels well this morning. Ready [...] WOB Neuro- A&Ox3 Device Interrogation: Data ?? Superintendent Commissary Model # Serial # Generator [employer] [id number] Atrial Lead [employer] [id number] RV Lead [employer] 0672 [id number] LV Lead [employer] [id number] ?? Diagnostics Pacing Mode: DDD 60-130 Underlying Rhythm: Todd Atrial Episodes: None Ventricular Episodes: None FINAL PROGRAMMING: Pacing: Mode Lower rate (ppm) Upper rate (ppm) ?? DDD 60 130 VF: Rate (bpm) #Antitachycardia pacing First shock energy (J) ?? 200 Quick convert 41 VT: 170 Monitor only Monitor only ? Battery and Leads Impedances (ohms) Sensing (mV) Thresholds HV RA RV LV RA RV LV RA RV LV 73 648 100 5058 (LVa) 7.7 13.1 >25 0.4V @ 0.4 ms 0.4V @ 0.4 ms 0.5 V @ 1.0 ms POD#1 CXR: All leads in nominal positioning Impression: 71 y.o. female who is s/p SPEECH AND LANGUAGE ASSISTANT-D implant for LBBB, NYHA II, HFrEF. [...] [facility]) Fadi Nunez MD 07/24/2022 Pager: [phone] I met with the patient today and [...] agreement. ? Dr. Lalit Mcmahon, electrophysiology attending ([id number]) * Zaria Wright RN - 07/23/2022 8:28 [...] HF, QRS > 150 ms presents for SPEECH AND LANGUAGE ASSISTANT-D placement. ROS: Denies recent fevers or [...] mL 5-20 mL Intravenous Q1 Min PRN oMnae Gonzalez MD ??? lidocaine (Xylocaine) 1% (10 mg/mL) injection 3 mg 0.3 mL Subcutaneous Once PRN Monae Gonzalez MD ??? lactated ringers infusion 1,000 mL Intravenous Continuous Monae Gonzalez MD ??? sodium chloride 0.9 % (flush) (BD PosiFlush Normal Saline 0.9) flush 5 mL 5 mL Intravenous [id number] ramos MD ??? sodium chloride 0.9 % [...] HF, QRS > 150 ms presents for SPEECH AND LANGUAGE ASSISTANT-D placement. Backup would be LBBAP lead. Antibiotics: cefazolin Rationales for, intended benefits and potential risk of planned procedures reviewed. The patient indicated understanding and agreement with the plan. Informed consent signed. Procedure checklist completed. Fadi Nunez MD Cardiac Electrophysiology Fellow [facility] Pager [phone] 07/23/2022 I met with the patient today [...] agreement. ? Dr. Lalit Mcmahon, electrophysiology attending ([id number]) documented in this encounter Miscellaneous Notes * Brief Op Note - Lalit Mcmahon MD - 07/23/2022 4:04 PM EDT Brief Operative Note Patient Name: Luna Mott : [id number] MR#: [id number] Case Date: 07/23/2022 Surgeon: Surgeon(s) and Role: [...] AM EST Hospital Encounter Non-[place] [address] Arrived Scheduled Orders Name Type Priority Associated Diagnoses Orde r Schedule EKG 12 Lead ECG Routine Cardiac resynchronization therapy defibrillator (SPEECH AND LANGUAGE ASSISTANT-D) in place One Time for 1 [...] (Bezet) 522 ms MUSE SYSTEM Calculated R [place] 78 degrees MUSE SYSTEM Calculated T [place] -71 degrees MUSE SYSTEM INTERPRETATION AV dual-paced [...] who have questions please contact the health restorative care technician that requested your imaging first. [...] patients who have questions please contactthe health restorative care technician that requested your imaging first. Lalit Mcmahon MD IMG DX ORDERABLES * ELECTROPHYSIOLOGY PROCEDURE (07/23/2022 1:11 PM EDT) Anatomical Region Laterality Modality Other Narrative 07/23/2022 4:24 PM EDT Table formatting from the original result was not included. BIVENTRICULAR ICD IMPLANTATION Distillery Worker: Lalit Mcmahon MD Fellow: Fadi Nunez [...] lateral branch of the CS in the WELSH view. This branch was cannulated with a [...] the entire procedure. LEAD AND GENERATOR DATA: Superintendent Commissary Model # Serial # Generator [employer] [id number] Atrial Lead [employer] [id number] RV Lead [employer] [id number] [id number] LV Lead [employer] [id number] PACE/SENSE DATA: Sensed wave (mV) Threshold (V) [...] (cGycm2) 300 CONCLUSIONS: Successful implantation of a [employer] biventricular ICD for primary prevention and treatment of symptoms related to congestive heart failure. Follow up in EP clinic in 1-2 months. Procedures performed: new ICD system ( cpt 02601-Z1); implant LV lead at time of ICD insertion (cpt 49337) I have read, edited and approve of this report: Lalit Mcmahon MD [facility] Cardiac Electrophysiology 07/23/2022 4:22 PM Procedure Note Lalit Mcmahon MD - 07/23/2022 BIVENTRICULAR ICD IMPLANTATION Distillery Worker: Lalit Mcmahon MD Fellow: Fadi Nunez [...] appropriate lateralbranch of the CS in the WELSH view. This branch was cannulated with a [...] in the entireprocedure. LEAD AND GENERATOR DATA: Superintendent Commissary Model # Serial # Generator [employer] [id number] Atrial Lead [employer] [id number] [id number] RV Lead [employer] 0672 [id number] LV Lead [employer] [id number] PACE/SENSE DATA: Sensed wave (mV) Threshold (V) [...] (cGycm2) 300 CONCLUSIONS: Successful implantation of a [employer] biventricular ICD forprimary prevention and treatment of symptoms related to congestive heartfailure. Follow up in EP clinic in 1-2 months. Procedures performed: new ICD system ( cpt 62235-P4); implant LV lead attime of ICD insertion (cpt 22273) I have read, edited and approve of this report: Lalit Mcmahon MD S Cardiac Electrophysiology 07/23/2022 4:22 PM Lalit Mcmahon MD EP PROCEDURE ORDERAB LES * POCT Glucose (07/23/2022 12:54 PM EDT) [facility] Signature Glucose, POC 83 65 - 199 mg/dL [facility] Comment: Supplemental ranges: <140 mg/dL before meals <180 mg/dL all other times of the day Blood 07/23/2022 12:5 4 PM EDT 07/23/2022 12:54 PM EDT Lalit Mcmahon MD POINT OF CARE TEST O RDERABLES Performing Organization Address City/[facility]/ZIP Co de Phone Number [facility] [place] [address] * EKG 12 Lead (07/23/2022 12:33 PM EDT) Ventricular rate 72 BPM MUSE SYSTEM Atrial Rate 72 BPM MUSE SYSTEM P-R Interval 158 ms MUSE SYSTEM QRS Duration 176 ms MUSE SYSTEM Q-T Interval 458 ms MUSE SYSTEM QTC Calculated (Bezet) 501 ms MUSE SYSTEM Calculated P [place] 34 degrees MUSE SYSTEM Calculated R [place] 12 degrees MUSE SYSTEM Calculated T [place] -173 degrees MUSE SYSTEM INTERPRETATION Normal sinus rhythm Left bundle branch block Abnormal ECG No previous ECGs available Confirmed by MD Salome, Lalit ([id number]) on 07/23/2022 1:19:03 PM MUSE SYSTEM 07/23/2022 12:3 3 PM EDT 07/23/2022 1:19 PM EDT Lalit Mcmahon MD ECG ORDERABLES Performing Organization Address [facility]/ZIP Co de Phone Number MUSE SYSTEM * Differential, Automated (07/23/2022 11:55 AM EDT) Neutrophil % 62.6 % [facility] Neutrophil Absolute 4.14 1.70 - 6.10 x10(3)/[facility] Lymph % 27.0 % [facility] Lymphocytes Abs 1.8 0.9 - 3.2 x10(3)/[facility] Monocyte % 7.3 % [facility] Monocyte Abs 0.5 0.3 - 0.9 x10(3)/[facility] Eos % 2.3 % [facility] Eosinophils Abs 0.2 0.0 - 0.4 x10(3)/[facility] Basophil % 0.6 % [facility] Baso Absolute 0.0 0.0 - 0.1 x10(3)/[facility] LAB[facility] Immature Gran % 0.20 % [facility] Comment: Immature granulocytes(IG's)percentage and absolute count will include metamyelocytes, myelocytes, and promyelocytes. Blood smears from CBCs yielding IG's will be scanned manually for concordance. If this scan disagrees with the automated IG or if promyelocytes are noted, a manual differential will be performed. Immature Gran Absolute 0.01 0.00 - 0.04 x10(3)/[facility] Blood 07/23/2022 11:5 5 AM EDT 07/23/2022 12:07 PM EDT Narrative Resulting Agency Comment Spec In Lab Lalit Mcmahon MD HEMATOLOGY ORDERABLE S [facility] [place] [address] * Hemogram (07/23/2022 11:55 AM EDT) White Blood Cell 6.6 4.0 - 9.5 x10(3)/[facility] Red Blood Cell 4.50 4.00 - 5.21 x10(6)/[facility] Hemoglobin 13.7 11.7 - 15.5 g/dL [facility] Hematocrit 42.5 35.7 - 45.8 % [facility] Mean Cell Volume 94.4 82.6 - 94.4 fL [facility] Mean Cell Hemoglobin 30.4 27.1 - 32.0 pg [facility] Mean Cell Hemoglobin Concentration 32.2 31.7 - 35.0 g/dL [facility] Platelet 193 145 - 357 x10(3)/[facility] RDW Standard Deviation 45.5 37.0 - 46.0 fL [facility] RDW coefficient of variation 13.2 11.5 - 14.1 % [facility] Mean Platelet Volume 9.5 7.6 - 12.9 fL [facility] NRBC% auto 0.0 % [facility] NRBC Absolute 0.000 0.000 - 0.000 x10(3)/[facility] Blood 07/23/2022 11:5 5 AM EDT 07/23/2022 12:07 PM EDT Narrative Resulting Agency Comment Spec In Lab Lalit Mcmahon MD HEMATOLOGY ORDERABLE S [facility] [place] [address] * (ABNORMAL) BMP w/fasting Glucose (07/23/2022 11:55 [...] of Diabetes Mellitus, Position Statement from the [place] [employer]. ??Diabetes Care, Volume 33, Supplement 1, Mar 2009 Blood Urea Nitrogen 23(H) 8 - 18 mg/dL [facility] Creatinine 1.07 0.70 - 1.20 mg/dL [facility] Sodium 141 135 - 145 [...] questions. Chloride 106 98 - 107 mmol/L [facility] Carbon Dioxide 26 22 - 31 mmol/L [facility] Anion Gap 9 5 - 15 mmol/L [facility] Calcium 9.7 8.5 - 10.5 mg/dL [facility] Est Glomerular Filtration Rate 55(L) >=60 mL/min/1. 73 m?? [facility] Comment: This patient's estimated GFR [...] ORDERABLES Performing Organization Address [facility] Co de Phone Number [facility] [place] [address] * Prothrombin Time (07/23/2022 11:55 AM EDT) [...] MD HEMATOLOGY ORDERABLE S Performing Organization Address City/[facility] Co de Phone Number [facility] [place] [address] documented in this encounter Visit Diagnoses Diagnosis HFrEF (heart failure with reduced ejection fraction)- Primary Left bundle branch block Other left bundle branch block Nonischemic cardiomyopathy Other primary cardiomyopathies Cardiac resynchronization therapy defibrillator (SPEECH AND LANGUAGE ASSISTANT-D) in place Left bundle branch block [...] Routine documented in this encounter Care Teams Aoc Aadc Operations Staff Officer Relationship Specialty Start Date End Date Lolly Oliveira MD [address] [place] [address] PCP - General 07/17/13 documented as of this encounter
--- OUTSIDE RECORDS SUMMARY | 2024-01-19 11:10 | XMS_ITS | Encounter Summary ---
Author Organization [facility] [place] [address] Care Team Providers Care Skiver Box Toe Name Role Phone Lolly Oliveira MD Primary Care Provider [phone] Encounter Details Date Type Department Care Team (Late st Contact Info) Description 03/17/2023 Telephone Cardiology at [address] [phone] Saranya Ma Social History Tobacco Use Types [...] 9:43 AM EST Echo order faxed to [facility] at [phone]. No Prior auth needed. Ref #:[id number]. Saranya Ma Sr. Clinical Procedure [place]/Disk Recordist documented in this encounter Plan of Treatment Upcoming Encounters Date Type Department Care Team (Late st Contact Info) Description 04/15/2024 10:00 AM [facility] Hospital Encounter [place] [address] Arrived documented as of this encounter Visit Diagnoses Not on filedocumented in this encounter Care Teams Skiver Box Toe Relationship Specialty Start Date End Date Lolly Oliveira MD [address] [place] [address] PCP - General 07/17/13 documented as of this encounter
--- OUTSIDE RECORDS SUMMARY | 2024-01-19 11:10 | XMS_ITS | Encounter Summary ---
Author Organization [facility] [place] [address] Care Team Providers Care Director Business Development Name Role Phone Lolly Oliveira MD Primary Care Provider [phone] Encounter Details Date Type Department Care Team (Latest Contact Info) Description 01/21/2023 10:00 AM EST - 01/21/2023 11:59 PM EST Hospital Encounter [place] [phone] Discharge Disposition: Home Social History Tobacco Use [...] with spacer fluticasone propionate (Flonase) 50 mcg/actuation [place], Suspension 1 spray by Each Nare route [...] AM EST Hospital Encounter Non-[place] [address] Arrived documented as of this [...] filedocumented in this encounter Care Teams Director Business Development Relationship Specialty Start Date End Date Lolly Oliveira MD [address] [place] [address] PCP - General 07/17/13 documented as of this encounter
--- OUTSIDE RECORDS SUMMARY | 2024-01-19 11:10 | XMS_ITS | Encounter Summary ---
Author Organization [facility] [place] [address] Care Team Providers Care Transportation Maintenance Worker Name Role Phone Lolly Oliveira MD Primary Care Provider [phone] Encounter Details Date Type Department Care Team (Late st Contact Info) Description 11/16/2022 Telephone Cardiology at [address] [phone] Luna Rousseau, RN Social History Tobacco Use Types Packs/Day Years Used Date Smoking Tobacco: Never Alcohol Use Standard Drinks/Week Comments Not Currently 0 (1 standard drink = 0.6 oz pur e alcohol) [facility] Inpatient Questions Answer Date Recorded Does [...] BP today was 118/57 at [facility] at [facility]. Pt is going twice a week [...] st Contact Info) Description 04/15/2024 10:00 AM [facility] Hospital Encounter [place] [phone] Arrived documented as of this encounter Visit Diagnoses Not on filedocumented in this encounter Care Teams Transportation Maintenance Worker Relationship Specialty Start Date End Date Lolly Oliveira MD [address] [place] [address] PCP - General 07/17/13 documented as of this encounter
--- OUTSIDE RECORDS SUMMARY | 2024-01-19 11:10 | XMS_ITS | Clinical Summary ---
Author Organization [facility] [place] [address] Care Team Providers Care Machinist First Class Name Role Phone Lolly Oliveira MD Primary Care Provider [phone] Allergies Active Allergy Reactions Criticality Noted Date [...] spacer Active fluticasone propionate (Flonase) 50 mcg/actuation [place], Suspension 1 spray by Each Nare route [...] Encounters Date Type Department Care Team Description 01/16/2024 10:00 AM EST - 01/16/2024 11:59 PM EST Hospital Encounter [place] [address] Arrived Discharge Disposition: Home from [...] AM EST Hospital Encounter [place] [address] Arrived Health Maintenance Due Date Last Done [...] - PCV) 2013 Covid-19 Vaccine ( - season) 2023 Influenza (Flu) vaccine (1 o f 1 - Influenza standard series) 11/07/2023 Medical Devices Implanted Type Area Vegetable Picker Device Identifier Shelf Expiration Date Model / Serial / Lot Bsx: [id number]: [id number]/18/2 023 Implanted: by Lalit Mcmahon MD (Quantity not on file) Defibrillator Chest Wall [employer] G447 / [id number] / Bsx: [id number]: 805474-3/18/2 023 Implanted: by Lalit Mcmahon MD (Quantity not on file) Lead Heart [employer] 4674 / [id number] / Bsx: [id number]: [id number] Implanted: by Lalit Mcmahon MD (Quantity not on file) Lead Heart [employer] 7841 / [id number] / Bsx: 0672: 110928-8/18/2 023 Implanted: by Lalit Mcmahon MD (Quantity not on file) Lead Heart [employer] 0672 / [id number] / Procedures Procedure Name Priority Date/Time Associated Diagnosis Comments PRO ICD INTERROGATION REMOTE UP TO 90 DAYS Routine 11/19/2023 4:31 AM EDT from Last [...] Status decision made by: Patient Care Teams Machinist First Class Relationship Specialty Start Date End Date Lolly Oliveira MD [address] [place] [address] PCP - General 07/17/13
--- OUTSIDE RECORDS SUMMARY | 2024-01-19 11:10 | XMS_ITS | Encounter Summary ---
Author Organization [facility] Address [facility] [place] [address] Care Team Providers Care Irrigation Manager Name Role Phone Lolly Oliveira MD Primary Care Provider [phone] Encounter Details Date Type Department Care Team (Late st Contact Info) Description 05/03/2023 Telephone Cardiology at [address] [phone] Lalit Mcmahon MD [facility] [place] [address] Social History Tobacco Use Types Packs/Day Years Used Date Smoking Tobacco: Never Alcohol Use Standard Drinks/Week Comments Not Currently 0 (1 standard drink = 0.6 oz pur e alcohol) [facility] Inpatient Questions Answer Date Recorded Does [...] AM EST Hospital Encounter [place] [address] Arrived documented as of this encounter Visit Diagnoses Not on filedocumented in this encounter Care Teams Irrigation Manager Relationship Specialty Start Date End Date Lolly Oliveira MD [address] [place] [address] PCP - General 07/17/13 documented as of this encounter
--- OUTSIDE RECORDS SUMMARY | 2024-01-19 11:10 | XMS_ITS | Encounter Summary ---
Author Organization [facility] Address [address] [place] [address] Care Team Providers Care Instructor Military Science Name Role Phone Lolly Oliveira MD Primary Care Provider [phone] Encounter Details Date Type Department Care Team (Late st Contact Info) Description 05/29/2002 Results Only [facility] conversion [address] [place] [address] Silvia Diehl, [address] [place] [phone] Social History Tobacco Use Types Packs/Day Years [...] when reading/interpreti ng unformatted reports. Name: ? LYLEJING ? Accession #: ? [id number] : ? 1950 (Age: 51) ??F ?Collect Date: ? 05/29/2002 Location: ? [facility] ? Receive Date: ? 05/31/2002 Provider: ?SILVIA DIEHL MOVIE MACHINE OPERATOR Copy to: ? Specimen/Source: ?ThinPrep Pap [...] End of Report [facility] 05/29/2002 05/31/2002 us Silvia Diehl MOVIE MACHINE OPERATOR PATHOLOGY ORDERABLES Final R esult [facility] [address] [place] [address] documented in this encounter Visit Diagnoses Not on filedocumented in this encounter Care Teams Instructor Military Science Relationship Specialty Start Date End Date Lolly Oliveira MD [address] [place] [address] PCP - General 11/13/08 documented as of this encounter
--- OUTSIDE RECORDS SUMMARY | 2024-01-19 11:10 | XMS_ITS | Encounter Summary ---
Author Organization [facility] [place] [address] Care Team Providers Care Drain Cleaner Plumber Name Role Phone Lolly Oliveira MD Primary Care Provider [phone] Reason for Visit * Reason Onset Date Comments Pre Procedure Call 07/01/2022 Encounter Details Date Type Department Care Team (Late st Contact Info) Description 07/01/2022 Telephone Cardiology at [address] [phone] Rosenda Sutton RN Pre Procedure Call Social History Tobacco Use Types Packs/Day Years Used Date Smoking Tobacco: Never Sex and Gender Information Value Date Recorded Sex Assigned at Not on file Gender Identity Not on file Sexual Orientation Not on file documented as of this encounter Miscellaneous Notes * Telephone Encounter - Rosenda Sutton RN - 07/01/2022 9:30 AM EDTSummary: Pre Procedure Call: WELL REACTIVATOR OPERATOR implant EP ICE CREAM CHEF COORDINATION CHECKLIST Patient Name: Luna Mott Patient Performing Communications Attendant: Lalit Mcmahon Referring Provider: Lolly Oliveira Date of Procedure: 07/23/22 Arrival Time/ Case Time: 12:00 pm / 1:00 pm Check In Location: Plumbing Service Technician Desk 4W Date Patient was Called: 07/01/22 Procedure: WELL REACTIVATOR OPERATOR Company: [employer] Type: WELL REACTIVATOR OPERATOR-D Laterality: LEFT Orders: Yes Lab Orders: [...] , understands that they will need local city driver on day of discharge Notified pt that Goff catheter may be placed on day of procedure depending on type & duration of case. documented in this encounter Plan of Treatment Upcoming Encounters Date Type Department Care Team (Late st Contact Info) Description 04/15/2024 10:00 AM [facility] Hospital Encounter [place] [address] Arrived documented as of this encounter Visit Diagnoses Not on filedocumented in this encounter Care Teams Drain Cleaner Plumber Relationship Specialty Start Date End Date Lolly Oliveira MD [address] [place] [address] PCP - General 07/17/13 documented as of this encounter
--- OUTSIDE RECORDS SUMMARY | 2024-01-19 11:10 | XMS_ITS | Encounter Summary ---
Author Organization [facility] [address] Care Team Providers Care Product Marketing Intern Name Role Phone Lolly Oliveira MD Primary Care Provider Encounter Details Date Type Department Care Team (Late st Contact Info) Description 05/18/2023 Telephone Dermatology at [address] [phone] Nora Meredith LPN Social History [...] st Contact Info) Description 04/15/2024 10:00 AM [facility] Hospital Encounter [place] [phone] Arrived documented as of this encounter Visit Diagnoses Not on filedocumented in this encounter Care Teams Product Marketing Intern Relationship Specialty Start Date End Date Lolly Oliveira MD [address] [place] [address] PCP - General 07/17/13 documented as of this encounter
--- OUTSIDE RECORDS SUMMARY | 2024-01-19 11:10 | XMS_ITS | Encounter Summary ---
Author Organization [facility] Address [address] [place] [address] Care Team Providers Care Tank Car Inspector Name Role Phone Lolly Oliveira MD Primary Care Provider [phone] Encounter Details Date Type Department Care Team (Late st Contact Info) Description 05/02/2004 Results Only [facility] conversion [address] [place] [address] Lolly Oliveira MD [address] [place], [place] [id number] Social History Tobacco Use Types Packs/Day Years [...] 66. [facility] Report Status Final [id number] [facility] 05/02/2004 9:32 EST 05/10/2004 9:32 EST us Lolly Oliveira MD MICROBIOLOGY - GENERAL ORDERABL ES Final Result [facility] [address] [place] [address] * CYTOPATHOLOGY (05/02/2004 0:00 EST) Pathology Report: CYTOPATHOLOGY REPORT Reports generated via electronic interface contain original data; however they are lacking the format of the original report. Caution should be taken when reading/interpreti ng unformatted reports. Name: ? JING ALVARENGA ? Accession #: ? [id number] : ? 1950 (Age: 53) ??F ?Collect [...] Date: ??05/09/2004 13:30 End of Report [facility] 05/02/2004 05/06/2004 us Lolly Oliveira MD PATHOLOGY ORDERABLES Final Resu lt Performing Organization Address City/State/[facility] Co de Phone Number [facility] [address] [place] [address] documented in this encounter Visit Diagnoses Not on filedocumented in this encounter Care Teams Tank Car Inspector Relationship Specialty Start Date End Date Lolly Oliveira MD [address] [place] [address] PCP - General 11/13/08 documented as of this encounter
--- OUTSIDE RECORDS SUMMARY | 2024-01-19 11:10 | XMS_ITS | Encounter Summary ---
Author Organization [facility] Address [facility] [place] [address] Care Team Providers Care Checker Loader Name Role Phone Lolly Oliveira MD Primary Care Provider [phone] Encounter Details Date Type Department Care Team (Late st Contact Info) Description 11/11/2022 Orders Only Cardiology at [address] [phone] Lalit Mcmahon MD [facility] [place] [address] Nonischemic cardiomyopathy Social History Tobacco Use Types [...] MEDICAL CENTER Hospital Encounter Non-[place]vasive [place] [phone] Arrived documented as of this encounter Visit Diagnoses Diagnosis Nonischemic cardiomyopathy Other primary cardiomyopathies documented in this encounter Care Teams Checker Loader Relationship Specialty Start Date End Date Berrian, Lolly M, MD [address] [place] [address] PCP - General 07/17/13 documented as of this encounter
--- OUTSIDE RECORDS SUMMARY | 2024-01-19 11:10 | XMS_ITS | Encounter Summary ---
Author Organization [facility] Address [facility] [place] [address] Care Team Providers Care Parts Sales Advisor Name Role Phone Lolly Oliveira MD Primary Care Provider [phone] Reason for Visit * Auth/Cert (Routine) Specialty Diagnoses / Procedures Referred By Contac t Referred To Contact Diagnoses Left bundle-branch block, unspecified Other cardiomyopathies Left bundle branch block [I44.7]Nonischemic cardiomyopathy [I42.8] Procedures PRG CATH PLMT LEFT HEART CATH & ARTS W/INJ & ANGIO IMG S&I ELECTROPHYSIOLOGY PROCEDURE Lalit Mcmahon MD [facility] [place] [address] [facility] Referral ID Status Reason Start Date Expiration Date Visits Re quested Visits Authorized [id number] 1 1 Encounter Details Date Type Department Care Team (Latest Contact Info) Description 07/23/2022 11:39 AM EDT - 07/24/2022 10:23 AM EDT Hospital [place] [phone] Lalit Mcmahon MD [facility] [place] [address] Left bundle branch block; Nonischemic cardiomyopathy; Cardiac resynchronization therapy defibrillator (PRODUCTION SUPPORT MANAGER-D) in place Discharge Disposition: Home Social History [...] MD Follow-up Recommendations for Providers: - s/p PRODUCTION SUPPORT MANAGER-D implant - post implant QRS 130 ms - reviewed post-implant instructions - no medication changes - Follow up in device clinic for wound/device check in ~10 days ([facility]) Inpatient Provider Contact Information: Cardiac Electrophysiology - Discharge Diagnoses (Hospital Problems) and Secondary Diagnoses (Chronic Problems): Active Hospital Problems Diagnosis ??? HFrEF (heart failure with reduced ejection fraction) Resolved Hospital Problems No resolved problems to display. Active Non-Hospital Problems Diagnosis ??? Dermatofibroma ??? Nevus ??? Solar lentigo Operations/Major Procedures: 07/23/22: [facility] PRODUCTION SUPPORT MANAGER-D implant History of Presentation: 71 y.o. female with a history of HFrEF, LBBB, QRS >150, NYHA II who is POD#1 of PRODUCTION SUPPORT MANAGER-D implant ([employer]). Hospital Course: Elective admission for PRODUCTION SUPPORT MANAGER-D implant Admitted post-implant for pain management, telemetry [...] (heart failure with reduced ejection fraction) [I50.20] PRODUCTION SUPPORT MANAGER-D implant Admission Condition: good Indication for Admission: [...] g Refills: 3 fluticasone propionate 50 mcg/actuation Dixon, Suspension Commonly known as: Flonase 1 spray [...] incision. Make sure to use a cloth weigher (such as a towel) in between the [...] F. The office scheduling phone number is [phone]. ARM MOVEMENT RESTRICTIONS POST-IMPLANT - Do not [...] please call the Cardiac ElectrophysiologyTriage Nurse at [phone], option 3. General Instructions None Discharge References/Attachments [...] incision. Make sure to use a cloth weigher (such as a towel) in between the [...] F. The office scheduling phone number is [phone]. ARM MOVEMENT RESTRICTIONS POST-IMPLANT - Do not [...] please call the Cardiac ElectrophysiologyTriage Nurse at [phone], option 3. documented in this encounter Medications [...] with spacer fluticasone propionate (Flonase) 50 mcg/actuation Dixon, Suspension 1 spray by Each Nare route [...] Cardiac Electrophysiology Post-Implant Device Interrogation Luna Mott [id number] 07/24/2022 History: Luna Mott is a 71 y.o. female with a history of HFrEF, LBBB, QRS >150, NYHA II who is POD#1 of PRODUCTION SUPPORT MANAGER-D implant ([employer]). Overall feels well this morning. Ready [...] WOB Neuro- A&Ox3 Device Interrogation: Data ?? Metal Riveting Machine Operator Model # Serial # Generator [employer] [id number] Atrial Lead [employer] [id number] [id number] RV Lead [employer] 0672 139363 LV Lead [employer] [id number] ?? Diagnostics Pacing Mode: DDD 60-130 Underlying Rhythm: [place] Atrial Episodes: None Ventricular Episodes: None FINAL PROGRAMMING: Pacing: Mode Lower rate (ppm) Upper rate (ppm) ?? DDD 60 130 VF: Rate (bpm) #Antitachycardia pacing First shock energy (J) ?? 200 Quick convert 41 VT: 170 Monitor only Monitor only ? Battery and Leads Impedances (ohms) Sensing (mV) Thresholds HV RA RV LV RA RV LV RA RV LV 73 [phone] (LVa) 7.7 13.1 >25 0.4V @ 0.4 ms 0.4V @ 0.4 ms 0.5 V @ 1.0 ms POD#1 CXR: All leads in nominal positioning Impression: 71 y.o. female who is s/p PRODUCTION SUPPORT MANAGER-D implant for LBBB, NYHA II, HFrEF. - Appropriate device function post-implant - CXR negative for post-implant complications - Changed sensed AV delay from 130 to 110 Plan: 1. Reviewed standard post-implant discharge instructions (see patient instructions) including arm restrictions, wound care, bathing, and driving 2. No medication changes. 3. Follow up in device clinic for wound/device check in ~10 days ([facility]) Fadi Nunez MD 07/24/2022 Pager: [phone] I met with the patient today and [...] agreement. ? Dr. Lalit Mcmahon, electrophysiology attending ([id number]) * Zaria Wright RN - 07/23/2022 8:28 [...] HF, QRS > 150 ms presents for PRODUCTION SUPPORT MANAGER-D placement. ROS: Denies recent fevers or chills [...] 0.9) flush 5 mL 5 mL Intravenous [id number] ramos MD ??? sodium chloride 0.9 % [...] HF, QRS > 150 ms presents for PRODUCTION SUPPORT MANAGER-D placement. Backup would be LBBAP lead. Antibiotics: cefazolin Rationales for, intended benefits and potential risk of planned procedures reviewed. The patient indicated understanding and agreement with the plan. Informed consent signed. Procedure checklist completed. Fadi Nunez MD Cardiac Electrophysiology Fellow [facility] Pager [phone] 07/23/2022 I met with the patient today [...] agreement. ? Dr. Lalit Mcmahon, electrophysiology attending ([id number]) documented in this encounter Miscellaneous Notes * Brief Op Note - Lalit Mcmahon MD - 07/23/2022 4:04 PM EDT Brief Operative Note Patient Name: Luna Mott : [id number] MR#: [id number] Case Date: 07/23/2022 Surgeon: Surgeon(s) and Role: [...] AM EST Hospital Encounter Non-Invasive [place] [address] Arrived Scheduled Orders Name Type Priority Associated Diagnoses Orde r Schedule EKG 12 Lead ECG Routine Cardiac resynchronization therapy defibrillator (PRODUCTION SUPPORT MANAGER-D) in place One Time for 1 Occurrences [...] (Bezet) 522 ms MUSE SYSTEM Calculated R Jackson 78 degrees MUSE SYSTEM Calculated T Jackson -71 degrees MUSE SYSTEM INTERPRETATION AV dual-paced [...] have questions please contact the health healthcare network consultant that requested your imaging first. ? Narrative [...] who have questions please contactthe health healthcare network consultant that requested your imaging first. Lalit Mcmahon MD IMG DX ORDERABLES * ELECTROPHYSIOLOGY PROCEDURE (07/23/2022 1:11 PM EDT) Anatomical Region Laterality Modality Other Narrative 07/23/2022 4:24 PM EDT Table formatting from the original result was not included. BIVENTRICULAR ICD IMPLANTATION Billboard Installer: Lalit Mcmahon MD Fellow: Fadi Nunez MD [...] lateral branch of the CS in the SYRIAC view. This branch was cannulated with a [...] the entire procedure. LEAD AND GENERATOR DATA: Metal Riveting Machine Operator Model # Serial # Generator [employer] [id number] Atrial Lead [employer] 7841 [id number] RV Lead [employer] 0672 [id number] LV Lead [employer] [id number] PACE/SENSE DATA: Sensed wave (mV) Threshold (V) [...] (cGycm2) 300 CONCLUSIONS: Successful implantation of a [employer] biventricular ICD for primary prevention and treatment of symptoms related to congestive heart failure. Follow up in EP clinic in 1-2 months. Procedures performed: new ICD system ( cpt 89014-G4); implant LV lead at time of ICD insertion (cpt 78703) I have read, edited and approve of this report: Lalit Mcmahon MD S Cardiac Electrophysiology 07/23/2022 4:22 PM Procedure Note Lalit Mcmahon MD - 07/23/2022 BIVENTRICULAR ICD IMPLANTATION Billboard Installer: Lalit Mcmahon MD Fellow: Fadi Nunez MD [...] appropriate lateralbranch of the CS in the SYRIAC view. This branch was cannulated with a [...] in the entireprocedure. LEAD AND GENERATOR DATA: Metal Riveting Machine Operator Model # Serial # Generator [employer] [id number] Atrial Lead [employer] 7841 [id number] RV Lead [employer] 0672 [id number] LV Lead [employer] [id number] PACE/SENSE DATA: Sensed wave (mV) Threshold (V) [...] (cGycm2) 300 CONCLUSIONS: Successful implantation of a [employer] biventricular ICD forprimary prevention and treatment of symptoms related to congestive heartfailure. Follow up in EP clinic in 1-2 months. Procedures performed: new ICD system ( cpt 10998-G6); implant LV lead attime of ICD insertion (cpt 65065) I have read, edited and approve of this report: Lalit Mcmahon MD [facility] Cardiac Electrophysiology 07/23/2022 4:22 PM Lalit Mcmahon MD EP PROCEDURE ORDERAB LES * POCT Glucose (07/23/2022 12:54 PM EDT) Glucose, POC 83 65 - 199 mg/dL [facility] Comment: Supplemental ranges: <140 mg/dL before meals <180 mg/dL all other times of the day Blood 07/23/2022 12:5 4 PM EDT 07/23/2022 12:54 PM EDT Lalit Mcmahon MD POINT OF CARE TEST O RDERABLES Performing Organization Address [facility] Co de Phone Number [facility] [address] * EKG 12 Lead (07/23/2022 12:33 PM EDT) Ventricular rate 72 BPM MUSE SYSTEM Atrial Rate 72 BPM MUSE SYSTEM P-R Interval 158 ms MUSE SYSTEM QRS Duration 176 ms MUSE SYSTEM Q-T Interval 458 ms MUSE SYSTEM QTC Calculated (Bezet) 501 ms MUSE SYSTEM Calculated P Jackson 34 degrees MUSE SYSTEM Calculated R Jackson 12 degrees MUSE SYSTEM Calculated T Jackson -173 degrees MUSE SYSTEM INTERPRETATION Normal sinus rhythm Left bundle branch block Abnormal ECG No previous ECGs available Confirmed by MD Salome, Lalit ([id number]) on 07/23/2022 1:19:03 PM MUSE SYSTEM 07/23/2022 12:3 3 PM EDT 07/23/2022 1:19 PM EDT Lalit Mcmahon MD ECG ORDERABLES Performing Organization Address [facility] de Phone Number MUSE SYSTEM * Differential, Automated (07/23/2022 11:55 AM EDT) Neutrophil % 62.6 % [facility] Neutrophil Absolute 4.14 1.70 - 6.10 x10(3)/[facility] Lymph % 27.0 % [facility] Lymphocytes Abs 1.8 0.9 - 3.2 x10(3)/[facility] Monocyte % 7.3 % [facility] Monocyte Abs 0.5 0.3 - 0.9 x10(3)/[facility] Eos % 2.3 % [facility] Eosinophils Abs 0.2 0.0 - 0.4 x10(3)/[facility] Basophil % 0.6 % [facility] Baso Absolute 0.0 0.0 - 0.1 x10(3)/[facility] Immature Gran % 0.20 % [facility] Comment: Immature granulocytes(IG's)percentage and absolute count [...] Lab Lalit Mcmahon MD HEMATOLOGY ORDERABLE S [facility] [place] [address] * Hemogram (07/23/2022 11:55 AM EDT) White Blood Cell 6.6 4.0 - 9.5 x10(3)/[facility] Red Blood Cell 4.50 4.00 - 5.21 x10(6)/[facility] Hemoglobin 13.7 11.7 - 15.5 g/dL [facility] Hematocrit 42.5 35.7 - 45.8 % [facility] Mean Cell Volume 94.4 82.6 - 94.4 fL [facility] Mean Cell Hemoglobin 30.4 27.1 - 32.0 pg [facility] Mean Cell Hemoglobin Concentration 32.2 31.7 - 35.0 g/dL [facility] Platelet 193 145 - 357 x10(3)/[facility] RDW Standard Deviation 45.5 37.0 - 46.0 fL [facility] RDW coefficient of variation 13.2 11.5 - 14.1 % [facility] Mean Platelet Volume 9.5 7.6 - 12.9 fL [facility] NRBC% auto 0.0 % [facility] NRBC Absolute 0.000 0.000 - 0.000 x10(3)/mcL [facility] Blood 07/23/2022 11:5 5 AM EDT 07/23/2022 12:07 PM EDT Narrative Resulting Agency Comment Spec In Lab Lalit Mcmahon MD HEMATOLOGY ORDERABLE S [facility] [address] [place] [address] * (ABNORMAL) BMP w/fasting Glucose (07/23/2022 11:55 AM EDT) Glucose Fasting 110(H) 65 - 99 mg/dL [facility] Comment: ?Fasting* Glucose Interpretive Criteria Normal [...] of Diabetes Mellitus, Position Statement from the [place] [employer]. ??Diabetes Care, Volume 33, Supplement 1, Mar 2009 Blood Urea Nitrogen 23(H) 8 - 18 mg/dL [facility] Creatinine 1.07 0.70 - 1.20 mg/dL [facility] Sodium 141 135 - 145 mmol/L [facility] Potassium 4.8 3.5 - 5.0 mmol/L [facility] Comment: Please note: ??Patients with WBC >100,000 may have falsely elevated Potassium levels. ??For accurate Potassium quantification in these patients send serum separator tube (gold top) for subsequent determinations. ??Contact the Clinical Chemistry Laboratory if there are any questions. Chloride 106 98 - 107 mmol/L [facility] Carbon Dioxide 26 22 - 31 mmol/L [facility] Anion Gap 9 5 - 15 mmol/L [facility] Calcium 9.7 8.5 - 10.5 mg/dL [facility] Est Glomerular Filtration Rate 55(L) >=60 mL/min/1. 73 m?? [facility] Comment: This patient's estimated GFR was [...] Mcmahon MD CHEMISTRY ORDERABLES Performing Organization Address [facility] Co de Phone Number [facility] [address] * Prothrombin Time (07/23/2022 11:55 AM EDT) Prothrombin Time 11.7 9.4 - 12.5 sec [facility] International Normalization Ratio 1.0 [facility] Comment: An INR <2.0 indicates adequate [...] Performing Organization Address City/[facility] Co de Phone Number [facility] [address] documented in this encounter Visit Diagnoses Diagnosis HFrEF (heart failure with reduced ejection fraction)- Primary Left bundle branch block Other left bundle branch block Nonischemic cardiomyopathy Other primary cardiomyopathies Cardiac resynchronization therapy defibrillator (PRODUCTION SUPPORT MANAGER-D) in place Left bundle branch block Other [...] 10 mEq, Oral, DAILY, First dose on Mrya 07/23/22 at 1800, Until Discontinued, potassium chloride [...] Routine documented in this encounter Care Teams Parts Sales Advisor Relationship Specialty Start Date End Date Lolly Oliveira MD [address] [place] [address] PCP - General 07/17/13 documented as of this encounter
--- OUTSIDE RECORDS SUMMARY | 2024-01-19 11:10 | XMS_ITS | Encounter Summary ---
Author Organization [facility] [place] [address] Care Team Providers Care Manager Of Compensation Name Role Phone Lolly Oliveira MD Primary Care Provider [phone] Encounter Details Date Type Department Care Team (Late st Contact Info) Description 05/18/2023 Refill Dermatology at [address] [address] Nora Meredith LPN Social History [...] patient. She voiced understanding. Order sent to [facility] drug. documented in this encounter Plan of Treatment Upcoming Encounters Date Type Department Care Team (Late st Contact Info) Description 04/15/2024 10:00 AM EST Hospital Encounter [place] [address] Arrived documented as of this encounter Visit Diagnoses Not on filedocumented in this encounter Care Teams Manager Of Compensation Relationship Specialty Start Date End Date Lolly Oliveira MD [address] [place] [address] PCP - General 07/17/13 documented as of this encounter
--- OUTSIDE RECORDS SUMMARY | 2024-01-19 11:10 | XMS_ITS | Encounter Summary ---
Author Organization [facility] [place] [address] Care Team Providers Care Procurement Clerk Name Role Phone Lolly Oliveira MD Primary Care Provider [phone] Reason for Visit * Reason Onset Date Comments Other 07/24/2022 Implanted Cardia c Device Teaching/Education Encounter Details Date Type Department Care Team (Late st Contact Info) Description 07/24/2022 Notes Only Cardiology at [address] [phone] Letha Arroyo Other (Implanted Cardiac Device Teaching/Education) Social History Tobacco Use Types Packs/Day Years Used Date Smoking Tobacco: Never Alcohol Use Standard Drinks/Week Comments Not Currently 0 (1 standard drink = 0.6 oz pur e alcohol) [facility] Inpatient Questions Answer Date Recorded [...] to call the Cardiac Device Clinic at [phone] with any questions. Plan: Post op check: [...] Contact Info) Description 04/15/2024 10:00 AM [facility] Hospital Encounter [place] [address] Arrived documented as of this encounter Visit Diagnoses Not on filedocumented in this encounter Care Teams Procurement Clerk Relationship Specialty Start Date End Date Lolly Oliveira MD [address] [place] [address] PCP - General 07/17/13 documented as of this encounter
--- OUTSIDE RECORDS SUMMARY | 2024-01-19 11:10 | XMS_ITS | Encounter Summary ---
Author Organization [facility] [place] [address] Care Team Providers Care Taxi Truck Driver Name Role Phone Lolly Oliveira MD Primary Care Provider [phone] Reason for Visit * Reason Comments Follow-up Encounter Details Date Type Department Care Team (Late st Contact Info) Description 05/21/2022 8:00 AM EDT Office Visit Dermatology at [address] [phone] Clay Ramírez MD [address] [facility], [place] [address] Psoriasis, guttate Social History Tobacco Use Types [...] st Contact Info) Description 04/15/2024 10:00 AM [facility] Encounter Non-[place]vasive [place] [address] Arrived documented as of this encounter Visit Diagnoses Diagnosis Psoriasis, guttate Other psoriasis documented in this encounter Care Teams Taxi Truck Driver Relationship Specialty Start Date End Date Lolly Oliveira MD [address] [place] [address] PCP - General 07/17/13 documented as of this encounter
--- OUTSIDE RECORDS SUMMARY | 2024-01-19 11:10 | XMS_ITS | Encounter Summary ---
Author Organization [facility] [place] [address] Care Team Providers Care Cotton Ginner Helper Name Role Phone Lolly Oliveira MD Primary Care Provider [phone] Reason for Visit * Diagnostic Test (Routine) - Closed Specialty Diagnoses / Procedures Referred By Contac t Referred To Contact Radiology Diagnoses Left bundle branch block Nonischemic cardiomyopathy Procedures MRI Cardiac Morphology Function With Flow Velocity Quantification wwo Contrast MRI Cardiac Morphology Function wwo Contrast Lalit Mcmahon MD [facility] [place] [address] [facility] [place] [address] Referral ID Status Reason Start Date Expiration Date V isits Requested Visits Authorized [id number] Closed Specialty Service Requested 05/06/2022 11/07/2023 2 1 Encounter Details Date Type Department Care Team (Latest Contact Info) Description 07/14/2022 9:09 AM EDT - 07/14/2022 11:59 PM EDT Hospital [place] [address] Lalit Mcmahon MD [facility] [place] [address] Discharge Disposition: Home Social History Tobacco Use [...] with spacer fluticasone propionate (Flonase) 50 mcg/actuation [place]ell, Suspension 1 spray by Each Nare route [...] Hospital Encounter Non-[place] [address] Arrived documented as of this [...] mLs documented in this encounter Care Teams Cotton Ginner Helper Relationship Specialty Start Date End Date Lolly Oliveira MD [address] [place] [address] PCP - General 07/17/13 documented as of this encounter
--- OUTSIDE RECORDS SUMMARY | 2024-01-19 11:10 | XMS_ITS | Encounter Summary ---
Author Organization [facility] Address [address] [place] [address] Care Team Providers Care Senior Research Consultant Name Role Phone Lolly Oliveira MD Primary Care Provider [phone] Encounter Details Date Type Department Care Team (Late st Contact Info) Description 03/06/2003 Results Only [facility] conversion [address] [place] [address] Lolly Oliveira MD [address] [place], [place] [id number] Social History Tobacco Use Types Packs/Day Years [...] End of Report [facility] 03/06/2003 03/09/2003 us Lolly Oliveira MD PATHOLOGY ORDERABLES Final Resu lt [facility] [address] [place] [address] documented in this encounter Visit Diagnoses Not on filedocumented in this encounter Care Teams Senior Research Consultant Relationship Specialty Start Date End Date Lolly Oliveira MD [address] [place] [address] PCP - General 11/13/08 documented as of this encounter
--- OUTSIDE RECORDS SUMMARY | 2024-01-19 11:10 | XMS_ITS | Encounter Summary ---
Author Organization [facility] [place] [address] Care Team Providers Care Floating Derrick Operator Name Role Phone Lolly Oliveira MD Primary Care Provider [phone] Reason for Visit * Reason Comments Follow-up 8 weeks UVB treatmen t twice weekly Encounter Details Date Type Department Care Team (Late st Contact Info) Description 07/19/2023 11:00 AM EDT Office Visit Dermatology at [address] [phone] Clay Ramírez MD [address], [facility] A DERMATOLOGY [place], [place] [phone] Psoriasis Social History Tobacco Use Types Packs/Day [...] Contact Info) Description 04/15/2024 10:00 AM [facility] Hospital Encounter Non-Invasive [place] [address] Arrived documented as of this encounter Visit Diagnoses Diagnosis Psoriasis Other psoriasis documented in this encounter Care Teams Floating Derrick Operator Relationship Specialty Start Date End Date Lolly Oliveira MD [address] [place] [address] PCP - General 07/17/13 documented as of this encounter
--- OUTSIDE RECORDS SUMMARY | 2024-01-19 11:10 | XMS_ITS | Encounter Summary ---
Author Organization [facility] [place] [address] Care Team Providers Care Fullerette Name Role Phone Lolly Oliveira MD Primary Care Provider [phone] Reason for Visit * Reason Comments Follow-up Encounter Details Date Type Department Care Team (Late st Contact Info) Description 07/02/2022 8:00 AM EDT Office Visit Dermatology at [address] [phone] Clay Ramírez MD [address] [facility], [place] [address] Psoriasis, guttate Social History Tobacco Use Types [...] st Contact Info) Description 04/15/2024 10:00 AM [facility] Hospital Encounter Non-Invasive [place] [address] Arrived documented as of this encounter Visit Diagnoses Diagnosis Psoriasis, guttate Other psoriasis documented in this encounter Care Teams Fullerette Relationship Specialty Start Date End Date Lolly Oliveira MD [address] [place] [address] PCP - General 07/17/13 documented as of this encounter
--- OUTSIDE RECORDS SUMMARY | 2024-01-19 11:10 | XMS_ITS | Encounter Summary ---
Author Organization Formerly [facility] [place] [address] Care Team Providers Care Inspector Water Pollution Control Name Role Phone Lolly Oliveira MD Primary Care Provider [phone] Reason for Referral * Diagnostic Test (Routine) - Closed Specialty Diagnoses / Procedures Referred By Contac t Referred To Contact Radiology Diagnoses Left bundle branch block Nonischemic cardiomyopathy Procedures MRI Cardiac Morphology Function With Flow Velocity Quantification [facility] Contrast MRI Cardiac Morphology Function wwo Contrast Lalit Mcmahon MD [facility] [place] [address] [place] [address] Referral ID Status Reason Start Date Expiration Date V isits Requested Visits Authorized [id number] Closed Specialty Service Requested 05/06/2022 11/07/2023 2 1 Reason for Visit * Diagnostic Test (Routine) - Closed Specialty Diagnoses / Procedures Referred By Contac t Referred To Contact Radiology Diagnoses Left bundle branch block Nonischemic cardiomyopathy Procedures MRI Cardiac Morphology Function With Flow Velocity Quantification o Contrast MRI Cardiac Morphology Function wwo Contrast Lalit Mcmahon MD [facility] [place] [address] [place] [address] Referral ID Status Reason Start Date Expiration Date V isits Requested Visits Authorized [id number] Closed Specialty Service Requested 05/06/2022 11/07/2023 2 1 Encounter Details Date Type Department Care Team (Latest Contact Info) Description 07/14/2022 9:08 AM EDT Hospital Encounter MRI at [facility] [place] [phone] Lalit Mcmahon MD [facility] [address] [place] [address] Left bundle branch block; Nonischemic cardiomyopathy Discharge [...] with spacer fluticasone propionate (Flonase) 50 mcg/actuation [place], Suspension 1 spray by Each Nare route [...] : 1950 [address] [facility] [address] Female [phone] (home) No relevant phone numbers on file. Lolly Oliveira MD None Allergies Allergen Reactions ??? Sulfa (Sulfonamide Antibiotics) Date/Time of call: July 07, 2022/11:03 AM/ PREVIOUS MRI SCAN? HEIGHT: WEIGHT: SCHEDULED SCAN: MRI CARDIAC MORPHOLOGY FUNCTION WITH FLOW VELOCITY QUANTIFICATION WWO CONTRAST [[id number]] Order Questions Answers Where will study be performed? [facility] Radiology [120] SUBJECTIVE: Very Claustrophobic [...] ( KV ) You must have a bus driver supervisor present when you check in. This patient has been informed that they require a bus driver supervisor to drive them home after this procedure. In the absence of a bus driver supervisor, IR will not be able to sedate for your scan. Pt verbalized understanding of these instructions during the pre-procedure education via phone. Yes Name of bus driver supervisor: Daughter Phone number: PRIOR SCAN DATE/S SEDATION TYPE SUCCESSFUL 07/14/22 MRI Cardiac Morphology Function with Flow Velocity Quantification wwo Contrast Ativan 1mg x 1 dose Pass Revised 08/03/17 documented in this encounter Plan of Treatment Upcoming Encounters Date Type Department Care Team (Late st Contact Info) Description 04/15/2024 10:00 AM [facility] Hospital Encounter [place] [address] Arrived documented as of this encounter Procedures [...] have questions please contact the health child adolescent care that requested your imaging first. ? Electronically signed by: Greyson Herron MD, [facility] ([phone]), at 07/15/2022 9:53 AM Narrative 07/15/2022 9:53 [...] who have questions please contactthe health child adolescent care that requested your imaging first. Lalit [...] documented in this encounter Care Teams Inspector Water Pollution Control Relationship Specialty Start Date End Date Lolly Oliveira MD [address] [place] [address] PCP - General 07/17/13 documented as of this encounter
--- OUTSIDE RECORDS SUMMARY | 2024-01-19 11:10 | XMS_ITS | Encounter Summary ---
Author Organization [facility] [place] [address] Care Team Providers Care Gate Cutter Name Role Phone Lolly Oliveira MD Primary Care Provider [phone] Encounter Details Date Type Department Care Team (Latest Contact Info) Description 10/18/2023 10:00 AM EDT - 10/18/2023 11:59 PM EDT Hospital Encounter [place] [phone] Discharge Disposition: Home Social History Tobacco Use [...] with spacer fluticasone propionate (Flonase) 50 mcg/actuation [place], Suspension 1 spray by Each Nare route daily as needed. documented as of this encounter Plan of Treatment Upcoming Encounters Date Type Department Care Team (Late st Contact Info) Description 04/15/2024 10:00 AM EST Hospital Encounter [place] [address] Arrived documented as of this encounter Procedures [...] on filedocumented in this encounter Care Teams Gate Cutter Relationship Specialty Start Date End Date Lolly Oliveira MD [address] [place] [address] PCP - General 07/17/13 documented as of this encounter
--- OUTSIDE RECORDS SUMMARY | 2024-01-19 11:11 | XMS_ITS | Encounter Summary ---
Author Organization [facility] [address] Care Team Providers Care General Manager Farm Name Role Phone Lolly Oliveira MD Primary Care Provider [phone] Encounter Details Date Type Department Care Team (Late st Contact Info) Description 04/01/2021 3:30 PM EST Office Visit Dermatology at [address] [phone] Clay Ramírez MD [address] [facility] [address] [address], [place] [address] Psoriasis, guttate Social History Tobacco Use Types [...] AM EST Hospital Encounter [place] [address] Arrived documented as of this encounter Visit Diagnoses Diagnosis Psoriasis, guttate Other psoriasis documented in this encounter Care Teams General Manager Farm Relationship Specialty Start Date End Date Lolly Oliveira MD [address] [place] [address] PCP - General 07/17/13 documented as of this encounter
--- OUTSIDE RECORDS SUMMARY | 2024-01-19 11:11 | XMS_ITS | Encounter Summary ---
Author Organization [facility] [place] [address] Care Team Providers Care Setter Helper Name Role Phone Lolly Oliveira MD Primary Care Provider [phone] Encounter Details Date Type Department Care Team (Late st Contact Info) Description 10/09/2021 Telephone Dermatology at [address] [address] Nora Meredith LPN Social History [...] st Contact Info) Description 04/15/2024 10:00 AM [facility] Hospital Encounter Non-[place] [address] Arrived documented as of this encounter Visit Diagnoses Not on filedocumented in this encounter Care Teams Setter Helper Relationship Specialty Start Date End Date Lolly Oliveira MD [address] [place] [address] PCP - General 07/17/13 documented as of this encounter
--- OUTSIDE RECORDS SUMMARY | 2024-01-19 11:11 | XMS_ITS | Encounter Summary ---
Author Organization [facility] [place] [address] Care Team Providers Care Criminal Researcher Name Role Phone Lolly Oliveira MD Primary Care Provider [phone] Encounter Details Date Type Department Care Team (Latest Contact Info) Description 07/20/2013 9:26 AM EDT - 07/20/2013 11:59 PM EDT Hospital Encounter [place] [address] CLINIC, Lolly So MD [address] [place], [place] [id number] Mammographic microcalcification Discharge Disposition: Home Social History [...] AM EST Hospital Encounter Non-Invasive [place] [address] Arrived documented as of this encounter Procedures [...] not layer and, therefore, are not business center representative of milk of calcium. Again, these [...] not layer and, therefore, are not business center representative of milk of calcium. Again, these have an amorphous andpunctate appearance and remain indeterminate. Stereotactic guided biopsy isrecommended. Alia Fraire MD IMG MAMMO ORDERABLES documented in this encounter Visit Diagnoses Diagnosis Mammographic microcalcification documented in this encounter Care Teams Criminal Researcher Relationship Specialty Start Date End Date Lolly Oliveira MD [address] [place] [address] PCP - General 07/17/13 documented as of this encounter
--- OUTSIDE RECORDS SUMMARY | 2024-01-19 11:11 | XMS_ITS | Encounter Summary ---
Author Organization [facility] [place] [address] Care Team Providers Care Accountant Machine Processing Name Role Phone Unavailable Primary Care Provider Unavailabl e Encounter Details Date Type Department Care Team (Late st Contact Info) Description 07/14/2013 [place] [phone] Eleno Christian MD [facility] [place] [address] Social History Tobacco Use Types Packs/Day Years [...] AM EST Hospital Encounter Non-[place] [address] Arrived documented as of this encounter Visit Diagnoses Not on filedocumented in this encounter
--- OUTSIDE RECORDS SUMMARY | 2024-01-19 11:11 | XMS_ITS | Encounter Summary ---
Author Organization [facility] [place] [address] Care Team Providers Care Healthcare Economics Manager Name Role Phone Lolly Oliveira MD Primary Care Provider [phone] Encounter Details Date Type Department Care Team (Late Contact Info) Description 01/14/2022 Telephone Dermatology at [address] [address] Nora Meredith LPN Social History [...] Department Care Team (Late Contact Info) Description 04/15/2024 10:00 AM EST Hospital Encounter Non-[place] [address] Arrived documented as of this encounter Visit Diagnoses Not on filedocumented in this encounter Care Teams Healthcare Economics Manager Relationship Specialty Start Date End Date Lolly Oliveira MD [address] [place] [address] PCP - General 07/17/13 documented as of this encounter
--- OUTSIDE RECORDS SUMMARY | 2024-01-19 11:11 | XMS_ITS | Encounter Summary ---
Author Organization [facility] [address] Care Team Providers Care Hardboard Factory Worker Name Role Phone Lolly Oliveira MD Primary Care Provider [phone] Reason for Referral * Consultation (Routine) - Closed Specialty Diagnoses / Procedures Referred By Contact Referred To Contact Electrophysiology / Cardiology Diagnoses Left bundle branch block Cardiomyopathy, unspecified type AT MINIMUM PT NEEDS CONSIDERATION FOR DEFIBRILLATOR, ALSO CANDIDATE FOR RESYNCHRONIZATION THERAPY HER QRS IS >0.16 Lolly Oliveira MD [address] [place] [address] [facility] [address] [place] [id number] Referral ID Status Reason Start Date Expiration Date V isits Requested Visits Authorized [id number] Closed Consult, Test & Treat PCP Updated and/or Approved 04/30/2022 04/30/2023 6 6 Encounter Details Date Type Department Care Team (Latest Contact Info) Description 04/30/2022 Transcribe Orders eDH Incoming Referrals [phone] Lolly Oliveira MD [address] [place], [place] [phone] Left bundle branch block; Cardiomyopathy, unspecified type [...] EST Hospital Encounter Non-Invasive [place] [address] Arrived Scheduled Referrals Name Type Priority Associated Diagnoses Orde r Schedule Referral to Cardiology Outpatient Referral Routine Left bundle branch block Cardiomyopathy, Unspecified Type Ordered: 04/30/2022 documented as of this encounter Visit Diagnoses Diagnosis Left bundle branch block Other left bundle branch block Cardiomyopathy, unspecified type documented in this encounter Care Teams Hardboard Factory Worker Relationship Specialty Start Date End Date Lolly Oliveira MD [address] [place] [address] PCP - General 07/17/13 documented as of this encounter
--- OUTSIDE RECORDS SUMMARY | 2024-01-19 11:11 | XMS_ITS | Encounter Summary ---
Author Organization [facility] [place] [address] Care Team Providers Care Distributor Publications Name Role Phone Lolly Oliveira MD Primary Care Provider [phone] Encounter Details Date Type Department Care Team (Latest Contact Info) Description 07/26/2013 9:44 AM EDT - 07/26/2013 11:59 PM EDT Hospital Encounter [place] [phone] CLINIC, Lolly So MD [address] [place], [place] [id number] Mammographic microcalcification Discharge Disposition: Home Social History [...] AM EST Hospital Encounter Non-[place] [address] Arrived documented as of this encounter Procedures [...] are present on specimen digital X-ray. A MAZ-Stereo 13 Cylinder marker clip was placed. Cranio-caudal [...] mLs documented in this encounter Care Teams Distributor Publications Relationship Specialty Start Date End Date Lolly Oliveira MD [address] [place] [address] PCP - General 07/17/13 documented as of this encounter
--- OUTSIDE RECORDS SUMMARY | 2024-01-19 11:11 | XMS_ITS | Encounter Summary ---
Author Organization [facility] [place] [address] Care Team Providers Care Prospecting Driller Helper Name Role Phone Lolly Oliveira MD Primary Care Provider [phone] Encounter Details Date Type Department Care Team (Late st Contact Info) Description 06/29/2011 [place] [phone] Eleno Christian MD [facility] [place]ST[place] [address] Social History Tobacco Use Types Packs/Day Years [...] AM EST Hospital Encounter Non-[place] [address] Arrived documented as of this encounter Procedures [...] on filedocumented in this encounter Care Teams Prospecting Driller Helper Relationship Specialty Start Date End Date Lolly Oliveira MD [address] [place] [address] PCP - General 07/17/13 documented as of this encounter
--- OUTSIDE RECORDS SUMMARY | 2024-01-19 11:11 | XMS_ITS | Encounter Summary ---
Author Organization [facility] [place] [address] Care Team Providers Care Chiropractic Physician Name Role Phone Lolly Oliveira MD Primary Care Provider Encounter Details Date Type Department Care Team (Latest Contact Info) Description 07/17/2013 8:40 AM EDT - 07/17/2013 11:59 PM EDT Hospital Encounter XRay at [address] [place] [address] CLINIC, DR [facility] Discharge Disposition: Home Social [...] Hospital Encounter Non-[place] [address] Arrived documented as of this encounter Visit Diagnoses Not on filedocumented in this encounter Care Teams Chiropractic Physician Relationship Specialty Start Date End Date Lolly Oliveira MD [address] [place] [address] PCP - General 07/17/13 documented as of this encounter
--- OUTSIDE RECORDS SUMMARY | 2024-01-19 11:11 | XMS_ITS | Encounter Summary ---
Author Organization [facility] [place] [address] Care Team Providers Care Atg Java Developer Name Role Phone Lolly Oliveira MD Primary Care Provider [phone] Encounter Details Date Type Department Care Team (Latest Contact Info) Description 07/26/2013 9:45 AM EDT - 07/26/2013 11:59 PM EDT Hospital En[place] [address] Mammographic microcalcification Social History Tobacco Use Types [...] AM EST Hospital Encounter Non-[place] [address] Arrived documented as of this encounter Procedures [...] microcalcification documented in this encounter Care Teams Atg Java Developer Relationship Specialty Start Date End Date Lolly Oliveira MD [address] [place] [address] PCP - General 07/17/13 documented as of this encounter
--- OUTSIDE RECORDS SUMMARY | 2024-01-19 11:11 | XMS_ITS | Encounter Summary ---
[place] [address] Care Team Providers Care Board Worker Name Role Phone Lolly Oliveira MD Primary Care Provider [phone] Encounter Details Date Type Department Care Team [...] AM EST Hospital Encounter Non-[place] [address] Arrived documented as of this encounter Visit Diagnoses Not on filedocumented in this encounter Care Teams Board Worker Relationship Specialty Start Date End Date Lolly Oliveira MD [address] [place] [address] PCP - General 07/17/13 documented as of this encounter
--- OUTSIDE RECORDS SUMMARY | 2024-01-19 11:11 | XMS_ITS | Encounter Summary ---
Author Organization [facility] [place] [address] Care Team Providers Care Switchboard Manager Name Role Phone Lolly Oliveira MD Primary Care Provider [phone] Encounter Details Date Type Department Care Team (Latest Contact Info) Description 07/18/2013 Orders [place] [phone] Alia Fraire MD [facility] [place] [address] Mammographic microcalcification (Primary Dx) Social History Tobacco [...] EST Hospital Encounter Non-Invasive [place] [address] Arrived documented as of this encounter Results [...] are present on specimen digital X-ray. A [place] [place] Eviva-Stereo 13 Cylinder marker clip was placed. [...] calcifications are present on specimendigital X-ray. A [place] Eviva-Stereo 13 Cylinder marker clip was placed. [...] layer and, therefore, are not sales representative marine supplies of milk of calcium. Again, these have [...] layer and, therefore, are not sales representative marine supplies of milk of calcium. Again, these have an amorphous andpunctate appearance and remain indeterminate. Stereotactic guided biopsy isrecommended. Alia Fraire MD IMG MAMMO ORDERABLES documented in this encounter Visit Diagnoses Diagnosis Mammographic microcalcification- Primary Mammographic microcalcification Mammographic microcalcification Mammographic microcalcification Mammographic microcalcification documented in this encounter Care Teams Switchboard Manager Relationship Specialty Start Date End Date Lolly Oliveira MD [address] [place] [address] PCP - General 07/17/13 documented as of this encounter
--- OUTSIDE RECORDS SUMMARY | 2024-01-19 11:11 | XMS_ITS | Encounter Summary ---
Author Organization [facility] [place] [address] Care Team Providers Care Back Up Machine Operator Name Role Phone Lolly Oliveira MD Primary Care Provider [phone] Reason for Visit * Reason Comments Psoriasis Encounter Details Date Type Department Care Team (Late st Contact Info) Description 04/09/2022 1:45 PM EST Office Visit Dermatology at [address] [address] Caly Ramírez MD [address] [facility], [place] [address] Psoriasis, guttate Social History Tobacco Use Types [...] AM EST Hospital Encounter Non-Invasive [place] [address] Arrived documented as of this encounter Visit Diagnoses Diagnosis Psoriasis, guttate Other psoriasis documented in this encounter Care Teams Back Up Machine Operator Relationship Specialty Start Date End Date Lolly Oliveira MD [address] [place] [address] PCP - General 07/17/13 documented as of this encounter
--- OUTSIDE RECORDS SUMMARY | 2024-01-19 11:11 | XMS_ITS | Encounter Summary ---
Author Organization [facility] [place] [address] Care Team Providers Care Flash Ranging Crewmember Name Role Phone Lolly Oliveira MD Primary Care Provider [phone] Reason for Visit * Reason Comments Skin Check Encounter Details Date Type Department Care Team (Late st Contact Info) Description 11/23/2014 10:00 AM EDT Office Visit Dermatology at [address] [address] Clay Ramírez MD [address] [facility], [place] [address] Dermatofibroma; Nevus; Solar lentigo Discharge Disposition: Home [...] st Contact Info) Description 04/15/2024 10:00 AM [facility] Hospital Encounter Non-[place] [address] Arrived documented as of this encounter Visit Diagnoses Diagnosis Dermatofibroma Benign neoplasm of skin, site unspecified Nevus Benign neoplasm of skin, site unspecified Solar lentigo Other dyschromia documented in this encounter Care Teams Flash Ranging Crewmember Relationship Specialty Start Date End Date Lolly Oliveira MD [address] [place] [address] PCP - General 07/17/13 documented as of this encounter
--- OUTSIDE RECORDS SUMMARY | 2024-01-19 11:11 | XMS_ITS | Encounter Summary ---
Author Organization [facility] [place] [address] Care Team Providers Care Synthetic Chemist Name Role Phone Lolly Oliveira MD Primary Care Provider Encounter Details Date Type Department Care Team (Late st Contact Info) Description 07/26/2013 [place] [address] Eleno Christian MD [facility] [place] [address] Social History Tobacco Use Types Packs/Day Years [...] AM EST Hospital Encounter Non-Invasive [place] [address] Arrived documented as of this encounter Visit Diagnoses Not on filedocumented in this encounter Care Teams Synthetic Chemist Relationship Specialty Start Date End Date Lolly Oliveira MD [address] [place] [address] PCP - General 07/17/13 documented as of this encounter
--- OUTSIDE RECORDS SUMMARY | 2024-01-19 11:11 | XMS_ITS | Encounter Summary ---
Author Organization [facility] [place] [address] Care Team Providers Care Hand Model Name Role Phone Unavailable Primary Care Provider Unavailabl e Encounter Details Date Type Department Care Team (Late st Contact Info) Description 07/14/2013 External Results XRay at [address] [place] [address] Provider, Scanning Social History Tobacco Use Types [...] Cardiology [facility] [place] [address] Arrived documented as of this encounter Procedures [...]
--- OUTSIDE RECORDS SUMMARY | 2024-01-19 11:11 | XMS_ITS | Encounter Summary ---
[place] [address] Care Team Providers Care Folder Seamer Name Role Phone Lolly Oliveira MD Primary Care Provider [phone] Encounter Details Date Type Department Care Team (Latest Contact Info) Description 07/26/2013 9:45 AM EDT - 07/26/2013 11:59 PM EDT Hospital [place] [address] Mammographic microcalcification Social History Tobacco Use Types [...] Hospital Encounter Non-[place] [address] Arrived documented as of this encounter Procedures Procedure Name Priority Date/Time Associated Diagnosis Comments SURGICAL PATHOLOGY REPORT Routine 07/26/2013 12:12 PM EDT MAMMO SPECIMEN IMAGING DURING BIOPSY Routine 07/26/2013 11:58 AM EDT Mammographic microcalcification documented in this encounter Results * Surgical Pathology Report (07/26/2013 12:12 PM EDT) Final Diagnosis ? [facility] ? Provider: ?? ELENO CHRISTIAN ?? Pt. Name: ?? JING ALVARENGA ? Acc #: ?[id number] ?Pt. ? Col Date: ?? 07/26/2013 ? [...] Partially fragmented, fibrofatty needle core biopsies. ? [facility] ? Provider: ?? ELENO CHRISTIAN ?? Pt. Name: ?? JING ALVARENGA ? Acc #: ?[id number] ?Pt. ? Col Date: ?? 07/26/2013 ? [...] PATHOLOGY/CYTOLOGY O RDERABLES Performing Organization Address City/State/[facility] Co ny Phone Number [facility] [address] * Mammo Specimen Imaging During Biopsy (07/26/2013 [...] microcalcification documented in this encounter Care Teams Folder Seamer Relationship Specialty Start Date End Date Lolly Oliveira MD [address] [place] [address] PCP - General 07/17/13 documented as of this encounter
--- OUTSIDE RECORDS SUMMARY | 2024-01-19 11:11 | XMS_ITS | Encounter Summary ---
[place] [address] Care Team Providers Care Account Executive Metalworking Name Role Phone Lolly Oliveira MD Primary Care Provider [phone] Encounter Details Date Type Department Care Team (Late st Contact Info) Description 07/17/2013 [place] [id number] Lolly Oliveira MD [address] [place], [place] [id number] Social History Tobacco Use Types Packs/Day Years [...] AM EST Hospital Encounter Non[place] [address] Arrived documented as of this encounter Procedures Procedure Name Priority Date/Time Associated Diagnosis Comments REQUEST FOR 2ND READ MAMMO Routine 07/17/2013 8:45 AM EDT documented in this encounter Results * Request for 2nd read Mammo (07/17/2013 8:45 AM EDT) Anatomical Region Laterality Modality Other 07/17/2013 8:45 AM EDT Narrative 07/17/2013 3:57 PM EDT INTERPRETATION OF OUTSIDE MAMMOGRAMS (PERFORMED ON 07/06/13 AND 07/14/13) FROM [facility] DATED 07/17/13: ?? DIAGNOSTIC [...] on filedocumented in this encounter Care Teams Account Executive Metalworking Relationship Specialty Start Date End Date Lolly Oliveira MD [address] [place] [address] PCP - General 07/17/13 documented as of this encounter
--- OUTSIDE RECORDS SUMMARY | 2024-01-19 11:11 | XMS_ITS | Encounter Summary ---
Author Organization [place] [address] Care Team Providers Care Digital Computer Systems Analyst Name Role Phone Unavailable Primary Care Provider Unavailabl e Encounter Details Date Type Department Care Team (Late st Contact Info) Description 07/04/2012 Orders [place] [address] Eleno Christian MD [facility] [place] [address] Social History Tobacco Use Types Packs/Day Years [...] AM EST Hospital Encounter Non-Invasive [place] [address] Arrived documented as of this encounter Procedures [...] is a Non-reportable exam Eleno Christian MD [facility] FILM LIBRARY ORD ERABLES documented in this encounter Visit Diagnoses Not on filedocumented in this encounter
--- OUTSIDE RECORDS SUMMARY | 2024-01-19 11:11 | XMS_ITS | Encounter Summary ---
Author Organization [facility] [place] [address] Care Team Providers Care Data Manager Name Role Phone Lolly Oliveira MD Primary Care Provider [phone] Reason for Visit * Reason Comments Follow-up Encounter Details Date Type Department Care Team (Late st Contact Info) Description 06/06/2021 8:45 AM EDT Office Visit Dermatology at [address] [address] Clay Ramírez MD [address] [facility] [place] [address] Psoriasis, guttate Social History Tobacco Use Types [...] AM EST Hospital Encounter Non[place] [address] Arrived documented as of this encounter Visit Diagnoses Diagnosis Psoriasis, guttate Other psoriasis documented in this encounter Care Teams Data Manager Relationship Specialty Start Date End Date Lolly Oliveira MD [address] [place] [address] PCP - General 07/17/13 documented as of this encounter
--- OUTSIDE RECORDS SUMMARY | 2024-01-19 11:11 | XMS_ITS | Encounter Summary ---
[place] [address] Care Team Providers Care Building Service Worker Name Role Phone Lolly Oliveira MD Primary Care Provider [phone] Encounter Details Date Type Department Care Team (Late st Contact Info) Description 04/09/2022 Refill Dermatology at [address] [address] Nora Meredith, EXTRACTOR TENDER RAW STOCK Social History Tobacco Use Types Packs/Day Years Used Date Smoking Tobacco: Never Sex and Gender Information Value Date Recorded Sex Assigned at Not on file Gender Identity Not on file Sexual Orientation Not on file documented as of this encounter Plan of Treatment Upcoming Encounters Date Type Department Care Team (Late st Contact Info) Description 04/15/2024 10:[address] [facility] Hospital Encounter Non[place] [address] Arrived documented as of this encounter Visit Diagnoses Not on filedocumented in this encounter Care Teams Building Service Worker Relationship Specialty Start Date End Date Lolly Oliveira MD [address] [place] [address] PCP - General 07/17/13 documented as of this encounter
[2024-01-19 11:13] VITALS: BP 121/64; PULSE 68; O2SAT 94
--- OUTSIDE RECORDS SUMMARY | 2024-01-21 11:28 | XMS_ITS | Encounter Summary ---
Author Organization [facility] Address [address] [place] [address] Care Team Providers Care Family Educator Name Role Phone Lolly Oliveira MD Primary Care Provider [phone] Encounter Details Date Type Department Care Team (Late st Contact Info) Description 03/06/2003 Results Only [facility] conversion [address] [place] [address] Lolly Oliveira MD [address] [place], [place] [id number] Social History Tobacco Use Types Packs/Day Years [...] ORDERABLES Final Resu lt [facility] [address] [place] [address] documented in this encounter Visit Diagnoses Not on filedocumented in this encounter Care Teams Family Educator Relationship Specialty Start Date End Date Lolly Oliveira MD [address] [place] [address] PCP - General 11/13/08 documented as of this encounter
--- OUTSIDE RECORDS SUMMARY | 2024-01-21 11:28 | XMS_ITS | Encounter Summary ---
Author Organization [facility] Address [address] [place] [address] Care Team Providers Care Potato Grader Name Role Phone Lolly Oliveira MD Primary Care Provider [phone] Encounter Details Date Type Department Care Team (Late st Contact Info) Description 04/12/2007 Results Only [facility] conversion [address] [place] [address] Lolly Oliveria MD [address] [place], [place] [phone] Social History Tobacco Use Types Packs/Day Years [...] ? JING ALVARENGA ? Accession #: ? [id number] : ? 1950 (Age: 56) ??F ?Collect Date: ? 04/12/2007 Location: ? [facility] ? Receive Date: ? 04/13/2007 Provider: ?LOLLY OLIVEIRA MD Copy to: ? Specimen/Source: ?ThinPrep Pap Test, Cervix/Endocervix, processed on [employer]PD ThinPrep Imaging System, with manual evaluation Last [...] ORDERABLES Final Resu lt [facility] [address] [place] [address] documented in this encounter Visit Diagnoses Not on filedocumented in this encounter Care Teams Potato Grader Relationship Specialty Start Date End Date Lolly Oliveira MD [address] [place] [address] PCP - General 11/13/08 documented as of this encounter
--- OUTSIDE RECORDS SUMMARY | 2024-01-21 11:28 | XMS_ITS | Encounter Summary ---
Author Organization [facility] Address [address] [place] [address] Care Team Providers Care Crop Puller Name Role Phone Lolly Oliveira MD Primary Care Provider [phone] Encounter Details Date Type Department Care Team (Late st Contact Info) Description 04/25/2009 Orders Only [facility] Laboratory Services - [facility] ([facility]) [address] [place], [place] [phone] Lolly Oliveira MD [address] [place], [place] [phone] Social History Tobacco Use Types Packs/Day Years [...] ? JING ALVARENGA ? Accession #: ? [id number] ? : ? 1950 (Age: 58) ??F [...] ORDERABLES Final Resu lt Performing Organization Address [facility]/State/ZIP Co de Phone Number [facility] [address] [place] [address] documented in this encounter Visit Diagnoses Not on filedocumented in this encounter Care Teams Crop Puller Relationship Specialty Start Date End Date Lolly Oliveira MD [address] [place] [address] PCP - General 11/13/08 documented as of this encounter
--- OUTSIDE RECORDS SUMMARY | 2024-01-21 11:28 | XMS_ITS | Encounter Summary ---
Author Organization [facility] Address [address] [place] [address] Care Team Providers Care Garden Labourer Name Role Phone Unavailable Primary Care Provider Unavailabl e Encounter Details Date Type Department Care Team (Late st Contact Info) Description 11/07/2008 Orders Only [facility] Laboratory Services - [facility] ([facility]) [address] [place] [address] Kenneth Parker MD [address] [place] [address] Social History Tobacco Use Types Packs/Day Years [...] ? JING ALVARENGA ? Accession #: ? [id number] ? : ? 1950 (Age: 58) ??F [...] ORDERABLES Final Resu lt [facility] [address] [place] [address] documented in this encounter Visit Diagnoses Not on filedocumented in this encounter
--- OUTSIDE RECORDS SUMMARY | 2024-01-21 11:28 | XMS_ITS | Encounter Summary ---
Author Organization [facility] Address [address] [place] [address] Care Team Providers Care Fire Loss Prevention Engineer Name Role Phone Lolly Oliveira MD Primary Care Provider [phone] Encounter Details Date Type Department Care Team (Late st Contact Info) Description 02/20/2020 Lab Requisition [facility] Pathology & Laboratory Medicine - [address] [address] Outr Resulting Lab, Provider Social History Tobacco [...] MICROBIOLOGY - GENER AL ORDERABLES Final Result [facility] [place], [place] * COVID-19 TESTING (02/19/2020 16:30 EST) COVID-19 rt-PCR Result NEGATIVE Negative 02/22/2020 23:41 EST [facility] Comment: 2019-novel Coronavirus (2019-nCoV) not [...] Emergency Use Authorization. Performing Lab [facility] 02/22/2020 23:41 EST [facility] Swab 02/19/2020 16:3 0 EST 02/20/2020 16:09 EST us Provider Outr Resulting Lab MICROBIOLOGY - GENER AL ORDERABLES Final Result [facility] [address] [place] [address] [facility] [place], [place] documented in this encounter Visit Diagnoses Not on filedocumented in this encounter Care Teams Fire Loss Prevention Engineer Relationship Specialty Start Date End Date Lolly Oliveira MD [address] [place] [address] PCP - General 11/13/08 documented as of this encounter
--- OUTSIDE RECORDS SUMMARY | 2024-01-21 11:28 | XMS_ITS | Clinical Summary ---
Author Organization [facility] Address [address] [place] [address] Care Team Providers Care Bi Tester Name Role Phone Lolly Oliveira MD Primary Care Provider [phone] Social History Tobacco Use Types Packs/Day Years [...] 08/10/2023 COVID-19 Vaccine (2023- season) 2023 Insurance [facility] MEDICARE Care Teams Bi Tester Relationship Specialty Start Date End Date Berrian, Lolly, MD [address] [place] [address] PCP - General 11/13/08
--- OUTSIDE RECORDS SUMMARY | 2024-01-21 11:28 | XMS_ITS | Encounter Summary ---
Author Organization [facility] Address [address] [place] [address] Care Team Providers Care Neurodiagnostic Technologist Name Role Phone Lolly Oliveira MD Primary Care Provider [phone] Encounter Details Date Type Department Care Team (Late st Contact Info) Description 04/01/[address] [facility] conversion [address] [place] [address] Blair Dukes MD [address] [place] [phone] Social History Tobacco Use Types Packs/Day Years [...] ? JING ALVARENGA ? Accession #: ? [id number] ? : ? 1950 (Age: 54) ??F [...] ? Received in [place]e' s fixative labelled [place] and #1 ??terminal ileum bx is a single 0.3 x 0.2 x 0.2 cm tissue, submitted intact as (A). Received in [place]e' s fixative labelled [place] and #2 ??transverse colon bx is a single 0.2 x 0.2 x 0.2 cm tissue, submitted intact as (B). ??(Dr. Lechuga)/[facility] End of Report [facility] 04/01/2005 04/02/2005 15: 24 EST us Blair Dukes MD PATHOLOGY ORDERABLES Final Resul t [facility] [address] [place] [address] documented in this encounter Visit Diagnoses Not on filedocumented in this encounter Care Teams Neurodiagnostic Technologist Relationship Specialty Start Date End Date Lolly Oliveira MD [address] [place] [address] PCP - General 11/13/08 documented as of this encounter
--- OUTSIDE RECORDS SUMMARY | 2024-01-21 11:28 | XMS_ITS | Encounter Summary ---
Author Organization [facility] Address [address] [place] [address] Care Team Providers Care Municipal Court Judge Name Role Phone Lolly Oliveira MD Primary Care Provider [phone] Encounter Details Date Type Department Care Team (Late st Contact Info) Description 04/17/2005 Results Only [facility] conversion [address] [place] [address] Lolly Oliveira MD [address] [place], [place] [phone] Social History Tobacco Use Types Packs/Day Years [...] ? JING ALVARENGA ? Accession #: ? [id number] : ? 1950 (Age: 54) ??F ?Collect Date: ? 04/17/2005 Location: ? [facility] ? Receive Date: ? 04/21/2005 Provider: ?LOLLY OLIVEIRA MD Copy to: ? Specimen/Source: ?ThinPrep Pap Test, Cervix/Endocervix, processed on [employer] ThinPrep Imaging System, with manual evaluation Last [...] Final Resu lt [facility] [address] [place] [address] documented in this encounter Visit Diagnoses Not on filedocumented in this encounter Care Teams Municipal Court Judge Relationship Specialty Start Date End Date Lolly Oliveira MD [address] [place] [address] PCP - General 11/13/08 documented as of this encounter
--- OUTSIDE RECORDS SUMMARY | 2024-01-21 11:28 | XMS_ITS | Encounter Summary ---
Author Organization [facility] Address [address] [place] [address] Care Team Providers Care It Infrastructure Consultant Name Role Phone Lolly Oliveira MD Primary Care Provider [phone] Encounter Details Date Type Department Care Team (Late st Contact Info) Description 03/21/2019 Lab Requisition [facility] Pathology & Laboratory Medicine - [address] [address] Unknown, Provider, Social History Tobacco Use Types [...] & BLOOD GAS ORDERA BLES Final Result [facility] [address] [place] [address] documented in this encounter Visit Diagnoses Not on filedocumented in this encounter Care Teams It Infrastructure Consultant Relationship Specialty Start Date End Date Lolly Oliveira MD [address] [place] [address] PCP - General 11/13/08 documented as of this encounter
--- OUTSIDE RECORDS SUMMARY | 2024-01-21 11:28 | XMS_ITS | Clinical Summary ---
Author Organization [facility] [place] [address] Care Team Providers Care Log Manager Name Role Phone Lolly Oliveira MD Primary Care Provider [phone] Allergies Active Allergy Reactions Criticality Noted Date [...] spacer Active fluticasone propionate (Flonase) 50 mcg/actuation [place], Suspension 1 spray by Each Nare route [...] PM EST Hospital Encounter Non-[place] [address] Arrived Discharge Disposition: Home from [...] AM EST Hospital Encounter Non-[place]vasive [place] [address] Arrived Health Maintenance Due Date Last Done [...] 11/07/2023 Medical Devices Implanted Type Area Cyber Engineer Device Identifier Shelf Expiration Date Model / Serial / Lot Bsx: [id number]: 939343-6/18/2 023 Implanted: by Lalit Mcmahon MD (Quantity not on file) Defibrillator Chest Wall [employer] G447 / [id number] / Bsx: [id number]: [id number]/18/2 023 Implanted: by Lalit Mcmahon MD (Quantity not on file) Lead Heart [employer] 4674 / [id number] / Bsx: [id number]: [id number] Implanted: by Lalit Mcmahon MD (Quantity not on file) Lead Heart [employer] 7841 / [id number] / Bsx: [id number]: [id number]/18/2 023 Implanted: by Lalit Mcmahon MD (Quantity not on file) Lead Heart [employer] [id number] / [id number] / Procedures Procedure Name Priority Date/Time Associated Diagnosis Comments PRO ICD INTERROGATION REMOTE UP TO 90 DAYS Routine 11/19/2023 4:31 AM EDT from Last 3 Months Results * Cardiac Device Check - Remote (11/19/2023 4:31 AM EDT) Anatomical Region Laterality Modality Other 11/19/2023 4:31 AM EDT Tre Aelman MD IMPLANTABLE CARDIAC DEVICE from Last 3 Months Advance Directives * Attempt Cardiopulmonary Resuscitation - Inpatient (Latest Code Status on File) Date Activated Date Inactivated Comments 07/23/2022 4:30 PM 07/24/2022 12:32 PM Question Answer Comments Code Status decision made by: Patient Care Teams Log Manager Relationship Specialty Start Date End Date Lolly Oliveira MD [address] [place] [id number] PCP - General 07/17/13
--- OUTSIDE RECORDS SUMMARY | 2024-01-21 11:28 | XMS_ITS | Encounter Summary ---
Author Organization [facility] Address [address] [place] [address] Care Team Providers Care Manager Technical Training Name Role Phone Lolly Oliveira MD Primary Care Provider [phone] Encounter Details Date Type Department Care Team (Late st Contact Info) Description 05/02/2004 Results Only [facility] [place] [facility] conversion [address] [place] [address] Lolly Oliveira MD [address] [place], [place] [id number] Social History Tobacco Use Types Packs/Day Years [...] 68. [facility] Report Status Final [id number] [facility] 05/02/2004 9:32 EST 05/10/2004 9:32 EST us Lolly Oliveira MD MICROBIOLOGY - GENERAL ORDERABL ES Final Result [facility] [address] [place] [address] * CYTOPATHOLOGY (05/02/2004 0:00 EST) Pathology Report: CYTOPATHOLOGY REPORT Reports generated via electronic interface contain original data; however they are lacking the format of the original report. Caution should be taken when reading/interpreti ng unformatted reports. Name: ? JING ALVARENGA ? Accession #: ? [id number] : ? 1950 (Age: 53) ??F ?Collect [...] ORDERABLES Final Resu lt Performing Organization Address City/State/[facility] Co de Phone Number [facility] [address] [place] [address] documented in this encounter Visit Diagnoses Not on filedocumented in this encounter Care Teams Manager Technical Training Relationship Specialty Start Date End Date Lolly Oliveira MD [address] [place] [address] PCP - General 11/13/08 documented as of this encounter
--- OUTSIDE RECORDS SUMMARY | 2024-01-21 11:28 | XMS_ITS | Encounter Summary ---
Author Organization [facility] Address [address] [place] [address] Care Team Providers Care Life Skills Trainer Name Role Phone Lolly Oliveira MD Primary Care Provider [phone] Encounter Details Date Type Department Care Team (Late st Contact Info) Description 11/13/2020 Lab Requisition [facility] Pathology & Laboratory Medicine - [address] [address] Outr Resulting Lab, Provider Social History Tobacco [...] MICROBIOLOGY - GENER AL ORDERABLES Final Result [facility] [address] [place] [address] * COVID-19 TESTING (11/13/2020 7:30 EDT) COVID-19 rt-PCR Result Negative Negative 11/14/2020 11:46 EDT [facility] Comment: This test [...] performed using the med SARS-CoV-2 assay ([employer] on the Med 6800 System Performing Lab Med [address] [facility] 11/14/2020 11:46 EDT [facility] Swab 11/13/2020 7:30 EDT 11/13/2020 20:57 EDT us Provider Outr Resulting Lab MICROBIOLOGY - GENER AL ORDERABLES Final Result Performing Organization Address [facility] Co de Phone Number [facility] [address] [place] [address] documented in this encounter Visit Diagnoses Not on filedocumented in this encounter Care Teams Life Skills Trainer Relationship Specialty Start Date End Date Lolly Oliveira MD [address] [place] [address] PCP - General 11/13/08 documented as of this encounter
--- OUTSIDE RECORDS SUMMARY | 2024-01-21 11:28 | XMS_ITS | Encounter Summary ---
Author Organization [facility] Address [address] [place] [address] Care Team Providers Care Natural Resources Faculty Member Name Role Phone Lolly Oliveira MD Primary Care Provider [phone] Encounter Details Date Type Department Care Team (Late st Contact Info) Description 06/16/2012 Results Only [facility] Laboratory Services - [facility] ([facility] [address] [place], [place] [phone] Lolly Oliveira MD [address] [place], [place] [phone] Social History Tobacco Use Types Packs/Day Years [...] ? JING ALVARENGA ? Accession #: ? [id number] : ? 1950 (Age: 61) ??F ?Collect [...] ORDERABLES Final Resu lt [facility] [address] [place] [address] documented in this encounter Visit Diagnoses Not on filedocumented in this encounter Care Teams Natural Resources Faculty Member Relationship Specialty Start Date End Date Lolly Oliveira MD [address] [place] [address] PCP - General 11/13/08 documented as of this encounter
--- OUTSIDE RECORDS SUMMARY | 2024-01-21 11:28 | XMS_ITS | Data Portability ---
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 05/21/2023 Can You Get To Places Out Of Walking Distance Without Help? (For Example, Can You Travel Alone On Buses Or Taxis, Or Drive Your Own Car?) Yes [email or web address] Information not available 05/21/2023 Can You Go Shopping For Groceries Or Clothes Without Someone? s Help? Yes [email or web address] Information not available 05/21/2023 Can You Prepare Your Own Meals? Yes Information not available 05/21/2023 Can You Do Your Housework Without Help? Yes [email or web address] Information not available 05/21/2023 Because Of Any Health Problems, Do You Need The Help Of Another Person With Your Personal Care Needs Such As Eating, Bathing, Dressing, Or Getting Around The House? No [email or web address] Information not available 05/21/2023 Can You Handle Your Own Money Without Help? Yes [email or web address] Information not available 05/21/2023 Are You Having Difficulties Driving Your Car? No [email or web address] Information no t available 05/21/2023 Do You Always Fasten Your Seat Belt When You Are In A Car? Yes- Usually [email or web address] Information not available 05/21/2023 How Often During The Past Four Weeks Have You Been Bothered By Any Of The Following Problems? Falling Or Dizzy When Standing Up? Never [email or web address] Information not available 05/21/2023 Sexual Problems? Never [email or web address] Informat ion not available 05/21/2023 Trouble Eating Well? Sometimes [email or web address] Information not available 05/21/2023 Teeth Or Denture Problems? Sometimes [email or web address] Information not available 05/21/2023 Problems Using The Telephone? Never Information not available 05/21/2023 Tiredness Or Fatigue? Sometimes [email or web address] Information not available 05/21/2023 Have You Had 2 Or More Falls Or Sustained An Injury With A Fall In The Last Year? No [email or web address] Information no t available 05/21/2023 Do You Have Difficulty With Walking Or Balance? No Information not available 05/21/2023 Do You Currently Use A Hearing Device? No [email or web address] Information not available 05/21/2023 Do You Currently Have Any Trouble With Your Vision? Yes [email or web address] Information no t available 05/21/2023 Do You Exercise For About 20 Minutes Three Or More Days A Week? Yes- Most Of The Time [email or web address] Information not available 05/21/2023 Are There Any Safety Concerns In Your Home (see Attached [facility] Pamphlet)? No Information not available 05/21/2023 How Often Do You Have Trouble Taking Medicines The Way You Have Been Told To Take Them? I Always Take Them As Prescribed [email or web address] Information not available 05/21/2023 How Confident Are You That You Can Control And Manage Most Of Your Health Problems? Very Confident [email or web address] Information not available 05/21/2023 Do You Currently Have Any Difficulty With Your Hearing? No Information not available 05/21/2023 Date Of Most Recent SBINS 05/21/2023 [email or web address] Information not available 05/21/2023 What Was The Date Of Your Most Recent Tobacco Screening? 09/01/2023 Information not available 09/01/2023 Has Tobacco Cessation Counseling Been Provided? Yes Information not available 09/01/2023 On What Date Was Tobacco Cessation Counseling Provided? 09/01/2023 Information not available 09/01/2023 Do You Or Have You Ever Used Any Other Forms Of Tobacco Or Nicotine? No [email or web address] Information not available 05/21/2023 Sex: Female Functional [...] preservative free, adsorbed 11/03/2018 completed Not Available [facility] 01/15/2023 04:53:39 Tdap 04/12/2007 completed Not Available [facility] 04:53:39 zoster live 06/16/2012 completed Not Available [facility] 01/15/2023 04:53:40 Pneumococcal conjugate PCV 13 09/17/2015 completed Not Available [facility] 01/15/2023 04:53:40 Influenza, high-dose, trivalent, PF 11/26/2017 completed Not Available [facility] 01/15/2023 04:53:41 Td(adult) unspecified formulation 09/30/1992 completed Not Available [facility] 01/15/2023 04:53:41 Influenza, split virus, trivalent, preservative 11/28/2015 completed Not Available [facility] 01/15/2023 04:53:41 Influenza, split virus, trivalent, preservative 01/04/2015 completed Not Available [facility] 01/15/2023 04:53:41 Influenza, split virus, quadrivalent, PF 12/21/2018 completed Not Available [facility] 01/15/2023 04:53:41 zoster recombinant 08/30/[address] [facility] 01/15/2023 04:53:42 zoster recombinant 01/26/[address] [facility] 01/15/2023 04:53:42 Influenza, high-dose, quadrivalent, PF 12/04/2020 completed Not Available [facility] 01/15/2023 04:53:43 Influenza, high-dose, quadrivalent, PF 12/11/2019 completed Not Available [facility] 01/15/2023 04:53:43 Influenza, high-dose, quadrivalent, PF 12/29/2021 completed Not Available [facility] 01/15/2023 04:53:43 COVID-19, mRNA, LNP-S, PF, 100 mcg/0.5mL dose or 50 mcg/0.25mL dose 07/09/2021 completed Not Available [facility] 01/15/2023 04:53:43 COVID-19 vaccine, vector-nr, rS-Ad26, PF, 0.5 mL 05/02/2020 completed Not Available [facility] 01/15/2023 04:53:44 SARS-COV-2 (COVID-19) vaccine, UNSPECIFIED 05/31/2020 completed Not Available [facility] 01/15/2023 04:53:44 SARS-COV-2 (COVID-19) vaccine, UNSPECIFIED 01/03/2021 completed Not Available [facility] 01/15/2023 04:53:44 pneumococcal polysaccharide PPV23 07/05/2014 completed Not Available [facility] 2022 04:53:45 Hep B, unspecified formulation 04/14/1993 completed Not Available [facility] 01/15/2023 04:53:45 Hep B, unspecified formulation 09/30/1992 completed Not Available [facility] 01/15/2023 04:53:46 Hep B, unspecified formulation 10/31/1992 completed Not Available [facility] 01/15/2023 04:53:46 influenza, unspecified formulation 12/11/2009 completed Not Available [facility] 01/15/2023 04:53:47 influenza, unspecified formulation 12/13/2012 completed Not Available [facility] 01/15/2023 04:53:47 influenza, unspecified formulation 12/18/2008 completed Not Available [facility] 01/15/2023 04:53:47 influenza, unspecified formulation 12/19/2010 completed Not Available [facility] 01/15/2023 04:53:47 influenza, unspecified formulation 12/30/2006 completed Not Available [facility] 01/15/2023 04:53:48 influenza, unspecified formulation 01/09/2014 completed Not Available [facility] 01/15/2023 04:53:48 influenza, unspecified formulation 01/26/2008 completed Not Available [facility] 01/15/2023 04:53:48 influenza, unspecified formulation 02/16/2012 completed Not Available [facility] 01/15/2023 04:53:48 Influenza, high-dose, quadrivalent, PF 12/17/2022 completed Not Available [facility] 03/19/2023 05:33:03 COVID-19, mRNA, LNP-S, PF, herminio-sucrose, 30 mcg/0.3 mL 12/28/2022 completed Not Available [facility] 03/19/2023 05:33:03 COVID-19, mRNA, LNP-S, bivalent, PF, 50 mcg/0.5 mL or 25mcg/0.25 mL dose 12/01/2023 completed DENYS Bauer, [facility] 12/20/2023 15:23:33 Respiratory syncytial virus (RSV) vaccine, unspecified 12/01/2023 completed DENYS Bauer, [facility] 12/20/2023 15:24:29 influenza, unspecified formulation 12/01/2023 completed DENYS Bauer, [facility] 12/20/2023 15:25:14 Past Encounters Encounter ID Performer Location Encounter Start Date Encounter Closed Date Diagnosis/Indication Diagnosis SNOMED-CT Code Diagnosis ICD10 Code [id number] LOLLY CORTEZ MD [address] [address] 05/21/2023 10:03:54 05/21/2023 11:37:49 Onychomycosis 272050578 B35.1 Asthma 591998797 J45.90 9 Cardiomyopathy 02894341 I10 Disorder of hip joint 42 0752940 M12.859 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 Hyperlipidemia 20258548 E78.5 Vulval and /or perineal noninflammatory disorders 970198766 N90.9 Adult heal th examination 738745360 Z00.00 [id number] [facility] [address] [place] [address] 09/01/2023 10:23:16 09/01/2023 13:28:10 Vertigo 797423503 R42 Impacted c erumen of bilateral ears 1412328438 898914 H61.23 [id number] LOLLY CORTEZ MD [facility] [address] [place] [address] 11/26/2023 07:26:08 11/26/2023 08:10:59 Screening mammography 01365600 Z12.31 Adjustment disorder 1722 6007 F43.20 Asthma 329227782 J45.90 9 Essential hypertension 60210829 I10 Guttate psoriasis 950035 00 L40.4 Cardiomyopathy 76962871 I10 Hyperlipidemia 38709651 E78.5 Prediabetes 941312655 R7 3.03 Health Concerns Section Related Observation LastModified by Organization Detai ls LastModified Time None Recorded Concern Status LastModified by Organization Details LastModified Time None Recorded Advance Directives Directive None Recorded Payers Encounter Date Sequence Insurance Name Policy Number Policy Lema Covered Member ID Lema Member ID Guarantor Name 05/21/2023 1 [id number] - [place]) [id number] Luna Lunaslin [id number] [place] E [place] 09/01/2023 1 [place] - [place]) [id number] Luna E Tiera [id number] Luna E [place] 11/26/2023 1 [place] - [place]) [id number] Luna E [place] [id number] Luna E Tiera Notes Date Note Type Note Provider Name and Address Organization Details Recorded Time 05/21/2023 text/html Thais here today for an annual wellness exam MD [address], [place], [address], [facility]. 05/24/2023 18:32:35 09/01/2023 text/html Luna is a [...] it. JESSICA INGRAM PA-C [address], [place], [address], [facility]. 09/01/2023 13:55:07 11/26/2023 text/html Thais here today for follow-up of cardiomyopathy, obesity LOLLY CORTEZ MD [address], [place], [address], [facility]. 11/28/2023 09:26:44 OBGyn Episode No OBEpisode recorded.
--- OUTSIDE RECORDS SUMMARY | 2024-01-21 11:28 | XMS_ITS | Referral Summary ---
Author Organization [facility] Address [address] [place] [address] Care Team Providers Care Pondman Name Role Phone Lolly Oliveira MD Primary Care Provider [phone] Social History Tobacco Use Types Packs/Day Years Used Date Smoking Tobacco: Never Assessed Comments Unknown Sex and Gender Information Value Date Recorded Sex Assigned at Not on file Legal Sex Female 18:31 EST Gender Identity Not on file Sexual Orientation Not on file Plan of Treatment Not on file Insurance [facility] MEDICARE Care Teams Pondman Relationship Specialty Start Date End Date Lolly Oliveira MD [address] [place] [address] PCP - General 11/13/08
--- OUTSIDE RECORDS SUMMARY | 2024-01-21 11:28 | XMS_ITS | Encounter Summary ---
Author Organization [facility] Address [address] [place] [address] Care Team Providers Care Fan Blade Truer Name Role Phone Lolly Oliveira MD Primary Care Provider [phone] Encounter Details Date Type Department Care Team (Late st Contact Info) Description 05/29/2002 Results Only [facility] conversion [address] [place] [address] Silvia Diehl, [address] [place] [id number] Social History Tobacco Use Types Packs/Day Years [...] Name: ? LYLEJING ? Accession #: ? [id number] : ? 1950 (Age: 51) ??F ?Collect Date: ? 05/29/2002 Location: ? [facility] ? Receive Date: ? 05/31/2002 Provider: ?SILVIA DIEHL [employer] WORK[employer] Copy to: ? Specimen/Source: ?ThinPrep Pap [...] [facility] 05/29/2002 05/31/2002 us Silvia Diehl [employer] WORKER PATHOLOGY ORDERABLES Final R esult [facility] [address] [place] [address] documented in this encounter Visit Diagnoses Not on filedocumented in this encounter Care Teams Fan Blade Truer Relationship Specialty Start Date End Date Lolly Oliveira MD [address] [place] [address] PCP - General 11/13/08 documented as of this encounter
--- OUTSIDE RECORDS SUMMARY | 2024-01-21 11:28 | XMS_ITS | Encounter Summary ---
Author Organization [facility] Address [address] [place] [address] Care Team Providers Care Family Consumer Scientist Name Role Phone Lolly Oliveira MD Primary Care Provider [phone] Encounter Details Date Type Department Care Team (Late st Contact Info) Description 02/11/2021 Lab Requisition [facility] Pathology & Laboratory Medicine - [address] [id number] Outr Resulting Lab, Provider Social History Tobacco [...] MICROBIOLOGY - GENER AL ORDERABLES Final Result [facility] [address] [place] [address] * COVID-19 TESTING (02/11/2021 8:00 EST) COVID-19 rt-PCR Result Negative Negative 02/12/2021 14:17 EST [facility] Comment: This test has [...] performed using the med SARS-CoV-2 assay ([employer] on the Med 6800 System Performing Lab Med [address] [facility] 02/12/2021 14:17 EST [facility] Swab 02/11/2021 8:00 EST 02/11/2021 22:22 EST us Provider Outr Resulting Lab MICROBIOLOGY - GENER AL ORDERABLES Final Result [facility] [address] [place] [address] documented in this encounter Visit Diagnoses Not on filedocumented in this encounter Care Teams Family Consumer Scientist Relationship Specialty Start Date End Date Lolly Oliveira MD [address] [place] [address] PCP - General 11/13/08 documented as of this encounter
--- OUTSIDE RECORDS SUMMARY | 2024-01-21 11:28 | XMS_ITS | Encounter Summary ---
Author Organization [facility] Address [address] [place] [address] Care Team Providers Care Epic [employer] Specialists Name Role Phone Lolly Oliveira MD Primary Care Provider [phone] Encounter Details Date Type Department Care Team (Late st Contact Info) Description 05/27/2021 Lab Requisition [facility] Pathology & Laboratory Medicine - [address] [address] Iman Moran, DO [address] [place], [place] [id number] Encounter for other general examination Social History [...] explore management options, if applicable. 05/30/2021 13:31 [facility] Final Diagnosis A. COLON, POLYP AT 90 CM, BIOPSY/POLYPECTOM Y: - Tubular adenoma. 05/30/2021 13:31 [facility] Attestation By the signature below, the attending physician certifies that they have 1) personally conducted a gross and/or microscopic examination of the described specimen(s), and/or personally interpreted the results of laboratory testing of the described specimen(s), and 2) personally rendered or confirmed the above diagnosis. 05/30/2021 13:31 [facility] at 1331 Clinical History Severe diverticula and polypectomy x1 05/30/2021 13:31 [facility] Gross Description A. Received in formalin labelled with proper patient identification (initials J, K) and colon polyp x1 at 90 cm is a light pineda polypoid tissue measuring 0.2 x 0.2 x 0.2 cm. Submitted intact in A1. MICKEY CARLOS(ASCP) 05/27/2021 19:11 05/30/2021 13:31 [facility] Performing Lab [facility] 05/30/2021 13:31 [facility] Scanned Images 05/30/2021 13:31 [facility] Tissue ENTIRE COLON / Unknown 05/27/2021 11:23 EDT 05/27/2021 16:33 EDT us Iman Moran DO PATHOLOGY ORDERABLES Final Re sult [facility] [address] [place] [address] documented in this encounter Visit Diagnoses Diagnosis Encounter for other general examination documented in this encounter Care Teams Epic [employer] Relationship Specialty Start Date End Date Lolly Oliveira MD [address] [place] [address] PCP - General 11/13/08 documented as of this encounter
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
--- OUTSIDE RECORDS SUMMARY | 2024-01-21 11:29 | XMS_ITS | Encounter Summary ---
Author Organization [facility] [place] [address] Care Team Providers Care Case Investigator Name Role Phone Lolly Oliveira MD Primary Care Provider Reason for Referral * Diagnostic Test (Routine) - Closed Specialty Diagnoses / Procedures Referred By Contac t Referred To Contact Radiology Diagnoses Left bundle branch block Nonischemic cardiomyopathy Procedures MRI Cardiac Morphology Function With Flow Velocity Quantification [facility] Contrast MRI Cardiac Morphology Function wwo Contrast Lalit Mcmahon MD [facility] [place] [address] [place] [address] Referral ID Status Reason Start Date Expiration Date V isits Requested Visits Authorized [id number] Closed Specialty Service Requested 05/06/2022 11/07/2023 2 1 Reason for Visit * Diagnostic Test (Routine) - Closed Specialty Diagnoses / Procedures Referred By Contac t Referred To Contact Radiology Diagnoses Left bundle branch block Nonischemic cardiomyopathy Procedures MRI Cardiac Morphology Function With Flow Velocity Quantification o Contrast MRI Cardiac Morphology Function wwo Contrast Lalit Mcmahon MD [facility] [place] [address] [place] [address] Referral ID Status Reason Start Date Expiration Date V isits Requested Visits Authorized [id number] Closed Specialty Service Requested 05/06/2022 11/07/2023 2 1 Encounter Details Date Type Department Care Team (Latest Contact Info) Description 07/14/2022 9:08 AM EDT Hospital Encounter MRI at [facility] [place] [phone] Lalit Mcmahon MD [facility] [place] [address] Left bundle branch block; Nonischemic cardiomyopathy Discharge [...] with spacer fluticasone propionate (Flonase) 50 mcg/actuation [place], Suspension 1 spray by Each Nare route [...] 71 y.o. : 1950 [address] [facility] [address] Female [phone] (home) No relevant phone numbers on file. Lolly Oliveira MD None Allergies Allergen Reactions ??? Sulfa (Sulfonamide Antibiotics) Date/Time of call: July 07, 2022/11:03 AM/ PREVIOUS MRI SCAN? HEIGHT: WEIGHT: SCHEDULED SCAN: MRI CARDIAC MORPHOLOGY FUNCTION WITH FLOW VELOCITY QUANTIFICATION WWO CONTRAST [[id number]] Order Questions Answers Where will study be performed? [facility] Radiology [120] SUBJECTIVE: Very Claustrophobic CAN [...] ( [place] ) You must have a snaker tractor driver present when you check in. This patient has been informed that they require a snaker tractor driver to drive them home after this procedure. In the absence of a snaker tractor driver, IR will not be able to sedate for your scan. Pt verbalized understanding of these instructions during the pre-procedure education via phone. Yes Name of snaker tractor driver: Daughter Phone number: PRIOR SCAN DATE/S SEDATION TYPE SUCCESSFUL 07/14/22 MRI Cardiac Morphology Function with Flow Velocity Quantification wwo Contrast Ativan 1mg x 1 dose Pass Revised 08/03/17 documented in this encounter Plan of Treatment Upcoming Encounters Date Type Department Care Team (Late st Contact Info) Description 04/15/2024 10:00 AM [facility] Hospital Encounter [place] [address] Arrived documented as of this encounter Procedures [...] who have questions please contact the health daycare worker that requested your imaging first. ? [...] patients who have questions please contactthe health daycare worker that requested your imaging first. Lalit [...] mg documented in this encounter Care Teams Case Investigator Relationship Specialty Start Date End Date Lolly Oliveira MD [address] [place] [address] PCP - General 07/17/13 documented as of this encounter
--- OUTSIDE RECORDS SUMMARY | 2024-01-21 11:29 | XMS_ITS | Encounter Summary ---
[place] [address] Care Team Providers Care Manager Small Business Name Role Phone Lolly Oliveira MD Primary Care Provider [phone] Encounter Details Date Type Department Care Team [...] AM EST Hospital Encounter Non-[place] [address] Arrived documented as of this encounter Visit Diagnoses Not on filedocumented in this encounter Care Teams Manager Small Business Relationship Specialty Start Date End Date Lolly Oliveira MD [address] [place] [address] PCP - General 07/17/13 documented as of this encounter
--- OUTSIDE RECORDS SUMMARY | 2024-01-21 11:29 | XMS_ITS | Encounter Summary ---
Author Organization [facility] [place] [address] Care Team Providers Care Mechanical Maintenance Worker Name Role Phone Lolly Oliveira MD Primary Care Provider [phone] Encounter Details Date Type Department Care Team (Latest Contact Info) Description 10/23/2022 10:00 AM EDT - 10/23/2022 11:59 PM EDT Hospital Encounter Non[place] [address] Discharge Disposition: Home Social History Tobacco Use [...] with spacer fluticasone propionate (Flonase) 50 mcg/actuation [place], Suspension 1 spray by Each Nare route [...] st Contact Info) Description 04/15/2024 10:00 AM [facility] Hospital Encounter Non-[place] [address] Arrived documented as of this [...] in this encounter Care Teams Mechanical Maintenance Worker Relationship Specialty Start Date End Date Lolly Oliveira MD [address] [place] [address] PCP - General 07/17/13 documented as of this encounter
--- OUTSIDE RECORDS SUMMARY | 2024-01-21 11:29 | XMS_ITS | Encounter Summary ---
Author Organization [facility] [place] [address] Care Team Providers Care Core Blower Operator Name Role Phone Lolly Oliveira MD Primary Care Provider [phone] Encounter Details Date Type Department Care Team (Latest Contact Info) Description 01/21/2023 10:00 AM EST - 01/21/2023 11:59 PM EST Hospital Encounter [place] [phone] Discharge Disposition: Home Social History Tobacco Use [...] with spacer fluticasone propionate (Flonase) 50 mcg/actuation [place], Suspension 1 spray by Each Nare route [...] AM EST Hospital Encounter Non-[place] [address] Arrived documented as of this [...] on filedocumented in this encounter Care Teams Core Blower Operator Relationship Specialty Start Date End Date Lolly Oliveira MD [address] [place] [address] PCP - General 07/17/13 documented as of this encounter
--- OUTSIDE RECORDS SUMMARY | 2024-01-21 11:29 | XMS_ITS | Encounter Summary ---
Author Organization [facility] [place] [address] Care Team Providers Care Blade Filer Name Role Phone Lolly Oliveira MD Primary Care Provider [phone] Encounter Details Date Type Department Care Team (Latest Contact Info) Description 01/16/2024 10:00 AM EST - 01/16/2024 11:59 PM EST Hospital Encounter Non-[place]vasive [place] [address] Arrived Discharge Disposition: Home Social History Tobacco [...] with spacer fluticasone propionate (Flonase) 50 mcg/actuation [place], Suspension 1 spray by Each Nare route daily as needed. documented as of this encounter Plan of Treatment Upcoming Encounters Date Type Department Care Team (Late st Contact Info) Description 04/15/2024 10:00 AM EST Hospital Encounter Non-[place] [address] Arrived documented as of this encounter Procedures [...] on filedocumented in this encounter Care Teams Blade Filer Relationship Specialty Start Date End Date Lolly Oliveira MD [address] [place] [address] PCP - General 07/17/13 documented as of this encounter
--- OUTSIDE RECORDS SUMMARY | 2024-01-21 11:29 | XMS_ITS | Encounter Summary ---
[place] [address] Care Team Providers Care Inspector Weights And Measures Name Role Phone Lolly Oliveira MD Primary Care Provider [phone] Encounter Details Date Type Department Care Team [...] AM EST Hospital Encounter Non-[place] [address] Arrived documented as of this encounter Visit Diagnoses Not on filedocumented in this encounter Care Teams Inspector Weights And Measures Relationship Specialty Start Date End Date Lolly Oliveira MD [address] [place] [address] PCP - General 07/17/13 documented as of this encounter
--- OUTSIDE RECORDS SUMMARY | 2024-01-21 11:29 | XMS_ITS | Encounter Summary ---
Author Organization [facility] [place] [address] Care Team Providers Care Inspector Hairspring Truing Name Role Phone Lolly Oliveira MD Primary Care Provider [phone] Reason for Visit * Reason Comments Skin Check Encounter Details Date Type Department Care Team (Late st Contact Info) Description 11/23/2014 10:00 AM EDT Office Visit Dermatology at [address] [address] Clay Ramírez MD [address] [facility] [place] [address] Dermatofibroma; Nevus; Solar lentigo Discharge Disposition: Home [...] st Contact Info) Description 04/15/2024 10:00 AM [facility] Hospital Encounter Non-Invasive [place] [address] Arrived documented as of this encounter Visit Diagnoses Diagnosis Dermatofibroma Benign neoplasm of skin, site unspecified Nevus Benign neoplasm of skin, site unspecified Solar lentigo Other dyschromia documented in this encounter Care Teams Inspector Hairspring Truing Relationship Specialty Start Date End Date Lolly Oliveira MD [address] [place] [address] PCP - General 07/17/13 documented as of this encounter
--- OUTSIDE RECORDS SUMMARY | 2024-01-21 11:29 | XMS_ITS | Encounter Summary ---
Author Organization [facility] [place] [address] Care Team Providers Care Square Dance Caller Name Role Phone Lolly Oliveira MD Primary Care Provider [phone] Reason for Referral * Consultation (Routine) - Closed Specialty Diagnoses / Procedures Referred By Contact Referred To Contact Electrophysiology / Cardiology Diagnoses Left bundle branch block Cardiomyopathy, unspecified type AT MINIMUM PT NEEDS CONSIDERATION FOR DEFIBRILLATOR, ALSO CANDIDATE FOR RESYNCHRONIZATION THERAPY HER QRS IS >0.16 Lolly Oliveira MD [address] [place] [address] [facility] Cardiology [address] [place] [id number] Referral ID Status Reason Start Date Expiration Date V isits Requested Visits Authorized [id number] Closed Consult, Test & Treat PCP Updated and/or Approved 04/30/2022 04/30/2023 6 6 Encounter Details Date Type Department Care Team (Latest Contact Info) Description 04/30/2022 Transcribe Orders eDH Incoming Referrals [phone] Lolly Oliveira MD [address] [place], [place] [id number] Left bundle branch block; Cardiomyopathy, unspecified type [...] AM EST Hospital Encounter [place] [address] Arrived Scheduled Referrals Name Type Priority Associated Diagnoses Orde r Schedule Referral to Cardiology Outpatient Referral Routine Left bundle branch block Cardiomyopathy, Unspecified Type Ordered: 04/30/2022 documented as of this encounter Visit Diagnoses Diagnosis Left bundle branch block Other left bundle branch block Cardiomyopathy, unspecified type documented in this encounter Care Teams Square Dance Caller Relationship Specialty Start Date End Date Lolly Oliveira MD [address] [place] [address] PCP - General 07/17/13 documented as of this encounter
--- OUTSIDE RECORDS SUMMARY | 2024-01-21 11:29 | XMS_ITS | Encounter Summary ---
Author Organization [facility] [place] [address] Care Team Providers Care Rap Artist Name Role Phone Lolly Oliveira MD Primary Care Provider [phone] Encounter Details Date Type Department Care Team (Late st Contact Info) Description 11/16/2022 Telephone Cardiology at [address] [phone] Luna Rousseau, RN Social History Tobacco Use Types Packs/Day Years Used Date Smoking Tobacco: Never Alcohol Use Standard Drinks/Week Comments Not Currently 0 (1 standard drink = 0.6 oz pur e alcohol) [facility] Inpatient Questions Answer Date Recorded Does Anyone [...] BP today was 118/57 at CR at [facility]. Pt is going twice a [...] st Contact Info) Description 04/15/2024 10:00 AM [facility] Hospital Encounter [place] [address] Arrived documented as of this encounter Visit Diagnoses Not on filedocumented in this encounter Care Teams Rap Artist Relationship Specialty Start Date End Date Lolly Oliveira MD [address] [place] [address] PCP - General 07/17/13 documented as of this encounter
--- OUTSIDE RECORDS SUMMARY | 2024-01-21 11:29 | XMS_ITS | Encounter Summary ---
Author Organization [facility] Address [place] [address] Care Team Providers Care Payroll Technician Name Role Phone Lolly Oliveira MD Primary Care Provider [phone] Encounter Details Date Type Department Care Team (Late st Contact Info) Description 05/03/2023 Telephone Cardiology at [address] [phone] Lalit Mcmahon MD [facility] [place] [address] Social History Tobacco Use Types Packs/Day Years [...] AM EST Hospital Encounter Non[place] [address] Arrived documented as of this encounter Visit Diagnoses Not on filedocumented in this encounter Care Teams Payroll Technician Relationship Specialty Start Date End Date Lolly Oliveira MD [address] [place] [address] PCP - General 07/17/13 documented as of this encounter
--- OUTSIDE RECORDS SUMMARY | 2024-01-21 11:29 | XMS_ITS | Encounter Summary ---
Author Organization [facility] [place] [address] Care Team Providers Care Director For Beauty School Name Role Phone Lolly Oliveira MD Primary Care Provider [phone] Reason for Visit * Reason Comments Follow-up Encounter Details Date Type Department Care Team (Late st Contact Info) Description 07/02/2022 8:00 AM EDT Office Visit Dermatology at [address] [phone] Clay Ramírez MD [address] [facility], [place] [address] Psoriasis, guttate Social History Tobacco Use Types [...] st Contact Info) Description 04/15/2024 10:00 AM [facility] Hospital Encounter Non-[place] [address] Arrived documented as of this encounter Visit Diagnoses Diagnosis Psoriasis, guttate Other psoriasis documented in this encounter Care Teams Director For Beauty School Relationship Specialty Start Date End Date Lolly Oliveira MD [address] [place] [address] PCP - General 07/17/13 documented as of this encounter
--- OUTSIDE RECORDS SUMMARY | 2024-01-21 11:29 | XMS_ITS | Encounter Summary ---
Author Organization [facility] [place] [address] Care Team Providers Care Department Secretary Name Role Phone Lolly Oliveira MD Primary Care Provider [phone] Reason for Visit * Reason Comments Follow-up Encounter Details Date Type Department Care Team (Late st Contact Info) Description 05/21/2022 8:00 AM EDT Office Visit Dermatology at [address] [phone] Clay Ramírez MD [address] [facility] [place] [address] Psoriasis, guttate Social History Tobacco Use Types [...] st Contact Info) Description 04/15/2024 10:00 AM [facility] Hospital Encounter [place] [address] Arrived documented as of this encounter Visit Diagnoses Diagnosis Psoriasis, guttate Other psoriasis documented in this encounter Care Teams Department Secretary Relationship Specialty Start Date End Date Lolly Oliveira MD [address] [place] [address] PCP - General 07/17/13 documented as of this encounter
--- OUTSIDE RECORDS SUMMARY | 2024-01-21 11:29 | XMS_ITS | Encounter Summary ---
Author Organization [facility] Address [facility] [place] [address] Care Team Providers Care Deputy Harbormaster Name Role Phone Lolly Oliveira MD Primary Care Provider [phone] Encounter Details Date Type Department Care Team (Late st Contact Info) Description 11/11/2022 Orders Only Cardiology at [address] [phone] Lalit Mcmahon MD [facility] [place] [address] Nonischemic cardiomyopathy Social History Tobacco Use Types [...] st Contact Info) Description 04/15/2024 10:00 AM [facility] Hospital Encounter Non-[place]vasive [place] [address] Arrived documented as of this encounter Visit Diagnoses Diagnosis Nonischemic cardiomyopathy Other primary cardiomyopathies documented in this encounter Care Teams Deputy Harbormaster Relationship Specialty Start Date End Date Berrian, Lolly M, MD [address] [place] [address] PCP - General 07/17/13 documented as of this encounter
--- OUTSIDE RECORDS SUMMARY | 2024-01-21 11:29 | XMS_ITS | Encounter Summary ---
[place] [address] Care Team Providers Care Ammonium Sulfate Operator Name Role Phone Lolly Oliveira MD Primary Care Provider [phone] Encounter Details Date Type Department Care Team [...] Non-[place] [address] Arrived documented as of this encounter Visit Diagnoses Not on filedocumented in this encounter Care Teams Ammonium Sulfate Operator Relationship Specialty Start Date End Date Lolly Oliveira MD [address] [place] [address] PCP - General 07/17/13 documented as of this encounter
--- OUTSIDE RECORDS SUMMARY | 2024-01-21 11:29 | XMS_ITS | Encounter Summary ---
Author Organization [facility] [place] [address] Care Team Providers Care Cnc Milling Machinist Name Role Phone Lolly Oliveira MD Primary Care Provider [phone] Reason for Visit * Reason Comments Follow-up Encounter Details Date Type Department Care Team (Late st Contact Info) Description 06/06/2021 8:45 AM EDT Office Visit Dermatology at [address] [address] Clay Ramírez MD [address] [facility] [place] [address] Psoriasis, guttate Social History Tobacco Use Types [...] AM EST Hospital Encounter Non-[place] [address] Arrived documented as of this encounter Visit Diagnoses Diagnosis Psoriasis, guttate Other psoriasis documented in this encounter Care Teams Cnc Milling Machinist Relationship Specialty Start Date End Date Lolly Oliveira MD [address] [place] [address] PCP - General 07/17/13 documented as of this encounter
--- OUTSIDE RECORDS SUMMARY | 2024-01-21 11:29 | XMS_ITS | Encounter Summary ---
Author Organization [facility] [place] [address] Care Team Providers Care Forestry Professor Name Role Phone Lolly Oliveira MD Primary Care Provider [phone] Encounter Details Date Type Department Care Team (Late st Contact Info) Description 03/17/2023 Telephone Cardiology at [address] [phone] Saranya Ma Social History Tobacco Use Types [...] 9:43 AM EST Echo order faxed to [facility] at [phone]. No Prior auth needed. Ref #:[id number]. Saranya Ma Sr. Clinical Procedure [place]/Pulp Plant Supervisor documented in this encounter Plan of Treatment Upcoming Encounters Date Type Department Care Team (Late st Contact Info) Description 04/15/2024 10:00 AM [facility] Hospital Encounter [place] [address] Arrived documented as of this encounter Visit Diagnoses Not on filedocumented in this encounter Care Teams Forestry Professor Relationship Specialty Start Date End Date Lolly Oliveira MD [address] [place] [address] PCP - General 07/17/13 documented as of this encounter
--- OUTSIDE RECORDS SUMMARY | 2024-01-21 11:29 | XMS_ITS | Encounter Summary ---
Author Organization [place] [address] Care Team Providers Care Um Nurse Name Role Phone Lolly Oliveira MD Primary Care Provider [phone] Encounter Details Date Type Department Care Team (Latest Contact Info) Description 07/20/2023 10:00 AM EDT - 07/20/2023 11:59 PM EDT Hospital Encounter Non-Invasive [place] [phone] Discharge Disposition: Home Social History Tobacco Use [...] with spacer fluticasone propionate (Flonase) 50 mcg/actuation [place], Suspension 1 spray by Each Nare route daily as needed. documented as of this encounter Plan of Treatment Upcoming Encounters Date Type Department Care Team (Late st Contact Info) Description 04/15/2024 10:00 AM EST Hospital Encounter Non-Invasive [place] [address] Arrived documented as of this encounter Procedures [...] on filedocumented in this encounter Care Teams Um Nurse Relationship Specialty Start Date End Date Lolly Oliveira MD [address] [place] [address] PCP - General 07/17/13 documented as of this encounter
--- OUTSIDE RECORDS SUMMARY | 2024-01-21 11:29 | XMS_ITS | Encounter Summary ---
Author Organization [facility] [place] [address] Care Team Providers Care County Manager Name Role Phone Lolly Oliveira MD Primary Care Provider [phone] Reason for Visit * Reason Onset Date Comments Pre Procedure Call 07/01/2022 Encounter Details Date Type Department Care Team (Late st Contact Info) Description 07/01/2022 Telephone Cardiology at [address] [phone] Rosenda Sutton RN Pre Procedure Call Social History Tobacco Use Types Packs/Day Years Used Date Smoking Tobacco: Never Sex and Gender Information Value Date Recorded Sex Assigned at Not on file Gender Identity Not on file Sexual Orientation Not on file documented as of this encounter Miscellaneous Notes * Telephone Encounter - Rosenda Sutton RN - 07/01/2022 9:30 AM EDTSummary: Pre Procedure Call: OCCUPATIONAL HEALTH RN implant EP SPECIAL EQUIPMENT TECHNICIAN COORDINATION CHECKLIST Patient Name: Luna Mott Patient Performing Social Service Worker: Lalit Mcmahon Referring Provider: Lolly Oliveira Date of Procedure: 07/23/22 Arrival Time/ Case Time: 12:00 pm / 1:00 pm Check In Location: Coal Cutting Machine Operator Desk 4W Date Patient was Called: 07/01/22 Procedure: OCCUPATIONAL HEALTH RN Company: [employer] Type: OCCUPATIONAL HEALTH RN-D Laterality: LEFT Orders: Yes Lab Orders: Yes [...] , understands that they will need driver courier on day of discharge Notified pt that Goff catheter may be placed on day of procedure depending on type & duration of case. documented in this encounter Plan of Treatment Upcoming Encounters Date Type Department Care Team (Late st Contact Info) Description 04/15/2024 10:00 AM [facility] Hospital Encounter [place] [address] Arrived documented as of this encounter Visit Diagnoses Not on filedocumented in this encounter Care Teams County Manager Relationship Specialty Start Date End Date Lolly Oliveira MD [address] [place] [address] PCP - General 07/17/13 documented as of this encounter
--- OUTSIDE RECORDS SUMMARY | 2024-01-21 11:29 | XMS_ITS | Encounter Summary ---
Author Organization [facility] Address [facility] [place] [address] Care Team Providers Care Shellfish Grower Name Role Phone Lolly Oliveira MD Primary Care Provider [phone] Reason for Visit * Auth/Cert (Routine) Specialty Diagnoses / Procedures Referred By Contac t Referred To Contact Diagnoses Left bundle-branch block, unspecified Other cardiomyopathies Left bundle branch block [I44.7]Nonischemic cardiomyopathy [I42.8] Procedures PRG CATH PLMT LEFT HEART CATH & ARTS W/INJ & ANGIO IMG S&I ELECTROPHYSIOLOGY PROCEDURE Lalit Mcmahon MD [facility] [address] [facility] Referral ID Status Reason Start Date Expiration Date Visits Re quested Visits Authorized [id number] 1 1 Encounter Details Date Type Department Care Team (Latest Contact Info) Description 07/23/2022 11:39 AM EDT - 07/24/2022 10:23 AM EDT Hospital [place] [phone] Lalit Mcmahon MD [facility] [place] [address] Left bundle branch block; Nonischemic cardiomyopathy; Cardiac resynchronization therapy defibrillator (PARATRANSIT DRIVER-D) in place Discharge Disposition: Home Social History [...] Luna Mott Patient Age: 71 y.o. Language: Mauritian Race: White Ethnicity: Not nor Admit date: 07/23/2022 Discharge date and time: 07/24/22 Attending Physician: Lalit Mcmahon MD Discharge Physician: Lalit Mcmahon MD Follow-up Recommendations for Providers: - s/p PARATRANSIT DRIVER-D implant - post implant QRS 130 ms [...] Solar lentigo Operations/Major Procedures: 07/23/22: [facility] PARATRANSIT DRIVER-D implant History of Presentation: 71 y.o. female with a history of HFrEF, LBBB, QRS >150, NYHA II who is POD#1 of PARATRANSIT DRIVER-D implant ([employer]). Hospital Course: Elective admission for PARATRANSIT DRIVER-D implant Admitted post-implant for pain management, telemetry [...] (heart failure with reduced ejection fraction) [I50.20] PARATRANSIT DRIVER-D implant Admission Condition: good Indication for Admission: [...] Refills: 3 fluticasone propionate 50 mcg/actuation [place], Suspension Commonly known as: Flonase 1 spray [...] incision. Make sure to use a cloth napping supervisor (such as a towel) in between [...] F. The office scheduling phone number is [phone]. ARM MOVEMENT RESTRICTIONS POST-IMPLANT - Do not [...] please call the Cardiac ElectrophysiologyTriage Nurse at [phone], option 3. General Instructions None Discharge References/Attachments [...] incision. Make sure to use a cloth napping supervisor (such as a towel) in between [...] F. The office scheduling phone number is [phone]. ARM MOVEMENT RESTRICTIONS POST-IMPLANT - Do not [...] please call the Cardiac ElectrophysiologyTriage Nurse at [phone], option 3. documented in this encounter Medications [...] spacer fluticasone propionate (Flonase) 50 mcg/actuation [place], Suspension 1 spray by Each Nare route [...] Cardiac Electrophysiology Post-Implant Device Interrogation Luna Mott [id number] 07/24/2022 History: Luna Mott is a 71 y.o. female with a history of HFrEF, LBBB, QRS >150, NYHA II who is POD#1 of PARATRANSIT DRIVER-D implant ([employer]). Overall feels well this morning. Ready [...] WOB Neuro- A&Ox3 Device Interrogation: Data ?? Land Mobile Radio Technician Model # Serial # Generator [employer] [id number] Atrial Lead [employer] [id number] [id number] RV Lead [employer] [id number] [id number] LV Lead [employer] [id number] [id number] ?? Diagnostics Pacing Mode: DDD 60-130 Underlying Rhythm: Cobb Atrial Episodes: None Ventricular Episodes: None FINAL PROGRAMMING: Pacing: Mode Lower rate (ppm) Upper rate (ppm) ?? DDD 60 130 VF: Rate (bpm) #Antitachycardia pacing First shock energy (J) ?? 200 Quick convert 41 VT: 170 Monitor only Monitor only ? Battery and Leads Impedances (ohms) Sensing (mV) Thresholds HV RA RV LV RA RV LV RA RV LV 73 510 350 7973 (LVa) 7.7 13.1 >25 0.4V @ 0.4 ms 0.4V @ 0.4 ms 0.5 V @ 1.0 ms POD#1 CXR: All leads in nominal positioning Impression: 71 y.o. female who is s/p PARATRANSIT DRIVER-D implant for LBBB, NYHA II, HFrEF. - [...] [facility]) Fadi Nunez MD 07/24/2022 Pager: [phone] I met with the patient today and [...] agreement. ? Dr. Lalit Mcmahon, electrophysiology attending ([id number]) * Zaria Wright RN - 07/23/2022 8:28 [...] HF, QRS > 150 ms presents for PARATRANSIT DRIVER-D placement. ROS: Denies recent fevers or chills [...] 0.9) flush 5 mL 5 mL Intravenous [id number] ramos MD ??? sodium chloride 0.9 % [...] HF, QRS > 150 ms presents for PARATRANSIT DRIVER-D placement. Backup would be LBBAP lead. Antibiotics: cefazolin Rationales for, intended benefits and potential risk of planned procedures reviewed. The patient indicated understanding and agreement with the plan. Informed consent signed. Procedure checklist completed. Fadi Nunez MD Cardiac Electrophysiology Fellow [facility] Pager [phone] 07/23/2022 I met with the patient today [...] agreement. ? Dr. Lalit Mcmahon, electrophysiology attending ([id number]) documented in this encounter Miscellaneous Notes * Brief Op Note - Lalit Mcmahon MD - 07/23/2022 4:04 PM EDT Brief Operative Note Patient Name: Luna Mott : [id number] MR#: [id number] Case Date: 07/23/2022 Surgeon: Surgeon(s) and Role: [...] Hospital Encounter [place] [address] Arrived Scheduled Orders Name Type Priority Associated Diagnoses Orde r Schedule EKG 12 Lead ECG Routine Cardiac resynchronization therapy defibrillator (PARATRANSIT DRIVER-D) in place One Time for 1 Occurrences [...] (Bezet) 522 ms MUSE SYSTEM Calculated R [place] 78 degrees MUSE SYSTEM Calculated T [place] -71 degrees MUSE SYSTEM INTERPRETATION AV dual-paced [...] have questions please contact the health director long term care that requested your imaging first. ? [...] who have questions please contactthe health director long term care that requested your imaging first. Lalit Mcmahon MD IMG DX ORDERABLES * ELECTROPHYSIOLOGY PROCEDURE (07/23/2022 1:11 PM EDT) Anatomical Region Laterality Modality Other Narrative 07/23/2022 4:24 PM EDT Table formatting from the original result was not included. BIVENTRICULAR ICD IMPLANTATION Charge Entry Clerk: Lalit Mcmahon MD Fellow: Fadi Nunez [...] lateral branch of the CS in the SWEDISH view. This branch was cannulated with a [...] the entire procedure. LEAD AND GENERATOR DATA: Land Mobile Radio Technician Model # Serial # Generator [employer] [id number] Atrial Lead [employer] [id number] [id number] RV Lead [employer] 0672 [id number] LV Lead [employer] [id number] [id number] PACE/SENSE DATA: Sensed wave (mV) Threshold (V) [...] (cGycm2) 300 CONCLUSIONS: Successful implantation of a [employer] biventricular ICD for primary prevention and treatment of symptoms related to congestive heart failure. Follow up in EP clinic in 1-2 months. Procedures performed: new ICD system ( cpt 08928-M5); implant LV lead at time of ICD insertion (cpt 74232) I have read, edited and approve of this report: Lalit Mcmahon MD S Cardiac Electrophysiology 07/23/2022 4:22 PM Procedure Note Lalit Mcmahon MD - 07/23/2022 BIVENTRICULAR ICD IMPLANTATION Charge Entry Clerk: Lalit Mcmahon MD Fellow: Fadi Nunez [...] appropriate lateralbranch of the CS in the SWEDISH view. This branch was cannulated with a [...] in the entireprocedure. LEAD AND GENERATOR DATA: Land Mobile Radio Technician Model # Serial # Generator [employer] [id number] Atrial Lead [employer] [id number] [id number] RV Lead [employer] 0672 424435 LV Lead [employer] 4674 288333 PACE/SENSE DATA: Sensed wave (mV) Threshold (V) [...] (cGycm2) 300 CONCLUSIONS: Successful implantation of a [employer] biventricular ICD forprimary prevention and treatment of symptoms related to congestive heartfailure. Follow up in EP clinic in 1-2 months. Procedures performed: new ICD system ( cpt 89892-A3); implant LV lead attime of ICD insertion (cpt 57533) I have read, edited and approve of this report: Lalit Mcmahon MD [facility] Cardiac Electrophysiology 07/23/2022 4:22 PM Lalit Mcmahon MD EP PROCEDURE ORDERAB LES * POCT Glucose (07/23/2022 12:54 PM EDT) Glucose, POC 83 65 - 199 mg/dL [facility] Comment: Supplemental ranges: <140 mg/dL before meals <180 mg/dL all other times of the day Blood 07/23/2022 12:5 4 PM EDT 07/23/2022 12:54 PM EDT Lalit Mcmahon MD POINT OF CARE TEST O RDERABLES Performing Organization Address [facility] Co de Phone Number [facility] [place] [address] * EKG 12 Lead (07/23/2022 12:33 PM EDT) Ventricular rate 72 BPM MUSE SYSTEM Atrial Rate 72 BPM MUSE SYSTEM P-R Interval 158 ms MUSE SYSTEM QRS Duration 176 ms MUSE SYSTEM Q-T Interval 458 ms MUSE SYSTEM QTC Calculated (Bezet) 501 ms MUSE SYSTEM Calculated P [place] 34 degrees MUSE SYSTEM Calculated R [place] 12 degrees MUSE SYSTEM Calculated T [place] -173 degrees MUSE SYSTEM INTERPRETATION Normal sinus rhythm Left bundle branch block Abnormal ECG No previous ECGs available Confirmed by MD Salome, Lalit ([id number]) on 07/23/2022 1:19:03 PM MUSE SYSTEM 07/23/2022 12:3 3 PM EDT 07/23/2022 1:19 PM EDT Lalit Mcmahon MD ECG ORDERABLES Performing Organization Address [facility] de Phone Number MUSE SYSTEM * Differential, Automated (07/23/2022 11:55 AM EDT) Neutrophil % 62.6 % [facility] Neutrophil Absolute 4.14 1.70 - 6.10 x10(3)/[facility] Lymph % 27.0 % [facility] Lymphocytes Abs 1.8 0.9 - 3.2 x10(3)/[facility] Monocyte % 7.3 % [facility] Monocyte Abs 0.5 0.3 - 0.9 x10(3)/[facility] Eos % 2.3 % [facility] Eosinophils Abs 0.2 0.0 - 0.4 x10(3)/[facility] Basophil % 0.6 % [facility] Baso Absolute 0.0 0.0 - 0.1 x10(3)/[facility] Immature Gran % 0.20 % [facility] Comment: Immature granulocytes(IG's)percentage and absolute count will include metamyelocytes, myelocytes, and promyelocytes. Blood smears from CBCs yielding IG's will be scanned manually for concordance. If this scan disagrees with the automated IG or if promyelocytes are noted, a manual differential will be performed. Immature Gran Absolute 0.01 0.00 - 0.04 x10(3)/[facility] Blood 07/23/2022 11:5 5 AM EDT 07/23/2022 12:07 PM EDT Narrative Resulting Agency Comment Spec In Lab Lalit Mcmahon MD HEMATOLOGY ORDERABLE S [facility] [place] [address] * Hemogram (07/23/2022 11:55 AM EDT) White Blood Cell 6.6 4.0 - 9.5 x10(3)/[facility] Red Blood Cell 4.50 4.00 - 5.21 x10(6)/[facility] Hemoglobin 13.7 11.7 - 15.5 g/dL [facility] Hematocrit 42.5 35.7 - 45.8 % [facility] Mean Cell Volume 94.4 82.6 - 94.4 fL [facility] Mean Cell Hemoglobin 30.4 27.1 - 32.0 pg [facility] Mean Cell Hemoglobin Concentration 32.2 31.7 - 35.0 g/dL [facility] Platelet 193 145 - 357 x10(3)/[facility] RDW Standard Deviation 45.5 37.0 - 46.0 fL [facility] RDW coefficient of variation 13.2 11.5 - 14.1 % [facility] Mean Platelet Volume 9.5 7.6 - 12.9 fL [facility] NRBC% auto 0.0 % [facility] NRBC Absolute 0.000 0.000 - 0.000 x10(3)/mcL [facility] Blood 07/23/2022 11:5 5 AM EDT 07/23/2022 12:07 PM EDT Narrative Resulting Agency Comment Spec In Lab Lalit Mcmahon MD HEMATOLOGY ORDERABLE S [facility] [address] [place] [address] * (ABNORMAL) BMP w/fasting Glucose (07/23/2022 11:55 AM EDT) Glucose Fasting 110(H) 65 - 99 mg/dL [facility] Comment: ?Fasting* Glucose Interpretive [...] Urea Nitrogen 23(H) 8 - 18 mg/dL [facility] Creatinine 1.07 0.70 - 1.20 mg/dL [facility] Sodium 141 135 - 145 mmol/L [facility] Potassium 4.8 3.5 - 5.0 mmol/L [facility] Comment: Please note: ??Patients with WBC >100,000 may have falsely elevated Potassium levels. ??For accurate Potassium quantification in these patients send serum separator tube (gold top) for subsequent determinations. ??Contact the Clinical Chemistry Laboratory if there are any questions. Chloride 106 98 - 107 mmol/L [facility] Carbon Dioxide 26 22 - 31 mmol/L [facility] Anion Gap 9 5 - 15 mmol/L [facility] Calcium 9.7 8.5 - 10.5 mg/dL [facility] Est Glomerular Filtration Rate 55(L) >=60 mL/min/1. 73 m?? [facility] Comment: This patient's estimated [...] CHEMISTRY ORDERABLES Performing Organization Address [facility] Co de Phone Number [facility] [place] [address] * Prothrombin Time (07/23/2022 11:55 AM EDT) Prothrombin Time 11.7 9.4 - 12.5 sec [facility] International Normalization Ratio 1.0 [facility] Comment: An INR <2.0 [...] MD HEMATOLOGY ORDERABLE S Performing Organization Address City/[facility] Co de Phone Number [facility] [place] [address] documented in this encounter Visit Diagnoses Diagnosis HFrEF (heart failure with reduced ejection fraction)- Primary Left bundle branch block Other left bundle branch block Nonischemic cardiomyopathy Other primary cardiomyopathies Cardiac resynchronization therapy defibrillator (PARATRANSIT DRIVER-D) in place Left bundle branch block Other [...] Starting on Myra 07/23/22 at 1245, Until Ymra 07/23/22 at 1646, Day of Surgery (Day [...] Routine documented in this encounter Care Teams Shellfish Grower Relationship Specialty Start Date End Date Lolly Oliveira MD [address] [place] [address] PCP - General 07/17/13 documented as of this encounter
--- OUTSIDE RECORDS SUMMARY | 2024-01-21 11:29 | XMS_ITS | Encounter Summary ---
Author Organization [facility] [place] [address] Care Team Providers Care Cloth Beamer Name Role Phone Lolly Oliveira MD Primary Care Provider [phone] Reason for Visit * Reason Comments Psoriasis Encounter Details Date Type Department Care Team (Late st Contact Info) Description 04/09/2022 1:45 PM EST Office Visit Dermatology at [address] [address] Clay Ramírez MD [address] [facility] [place] [address] Psoriasis, guttate Social History Tobacco Use Types [...] AM EST Hospital Encounter Non-[place] [address] Arrived documented as of this encounter Visit Diagnoses Diagnosis Psoriasis, guttate Other psoriasis documented in this encounter Care Teams Cloth Beamer Relationship Specialty Start Date End Date Lolly Oliveira MD [address] [place] [address] PCP - General 07/17/13 documented as of this encounter
--- OUTSIDE RECORDS SUMMARY | 2024-01-21 11:29 | XMS_ITS | Encounter Summary ---
Author Organization [facility] [place] [address] Care Team Providers Care Shake Maker Name Role Phone Lolly Oliveira MD Primary Care Provider Encounter Details Date Type Department Care Team (Late st Contact Info) Description 10/09/2021 Telephone Dermatology at [address] [address] Nora Meredith LPN Social History [...] st Contact Info) Description 04/15/2024 10:00 AM [facility] Hospital Encounter Non-Invasive [place] [address] Arrived documented as of this encounter Visit Diagnoses Not on filedocumented in this encounter Care Teams Shake Maker Relationship Specialty Start Date End Date Lolly Oliveira MD [address] [place] [address] PCP - General 07/17/13 documented as of this encounter
--- OUTSIDE RECORDS SUMMARY | 2024-01-21 11:29 | XMS_ITS | Encounter Summary ---
[place] [address] Care Team Providers Care Flanging Roll Operator Name Role Phone Lolly Oliveira MD Primary Care Provider [phone] Encounter Details Date Type Department Care Team (Latest Contact Info) Description 07/26/2013 9:45 AM EDT - 07/26/2013 11:59 PM EDT Hospital Encounter [place] [address] Mammographic microcalcification Social History Tobacco Use Types [...] AM EST Hospital Encounter Non-Invasive [place] [address] Arrived documented as of this encounter Procedures Procedure Name Priority Date/Time Associated Diagnosis Comments SURGICAL PATHOLOGY REPORT Routine 07/26/2013 12:12 PM EDT MAMMO SPECIMEN IMAGING DURING BIOPSY Routine 07/26/2013 11:58 AM EDT Mammographic microcalcification documented in this encounter Results * Surgical Pathology Report (07/26/2013 12:12 PM EDT) Final Diagnosis ? [facility] ? Provider: ?? ELENO CHRISTIAN ?? Pt. Name: ?? JING ALVARENGA ? Acc #: ?[id number] ?Pt. ? Col Date: ?? 07/26/2013 ? [...] Partially fragmented, fibrofatty needle core biopsies. ? [facility] ? Provider: ?? ELENO CHRISTIAN ?? Pt. Name: ?? JING ALVARENGA ? Acc #: ?[id number] ?Pt. ? Col Date: ?? 07/26/2013 ? [...] MD PATHOLOGY/CYTOLOGY O RDERABLES Performing Organization Address City/State/[facility] Co vt Phone Number [facility] [address] * Mammo Specimen Imaging During Biopsy (07/26/2013 [...] microcalcification documented in this encounter Care Teams Flanging Roll Operator Relationship Specialty Start Date End Date Lolly Oliveira MD [address] [place] [address] PCP - General 07/17/13 documented as of this encounter
--- OUTSIDE RECORDS SUMMARY | 2024-01-21 11:29 | XMS_ITS | Encounter Summary ---
Author Organization [facility] [place] [address] Care Team Providers Care Color Worker Name Role Phone Lolly Oliveira MD Primary Care Provider [phone] Reason for Visit * Reason Comments Follow-up 8 weeks UVB treatmen t twice weekly Encounter Details Date Type Department Care Team (Late st Contact Info) Description 07/19/2023 11:00 AM EDT Office Visit Dermatology at [address] [phone] Clay Ramírez MD [address] [place] A DERMATOLOGY [place], [place] [id number] Psoriasis Social History Tobacco Use Types Packs/Day [...] [facility] Non[place] [address] Arrived documented as of this encounter Visit Diagnoses Diagnosis Psoriasis Other psoriasis documented in this encounter Care Teams Color Worker Relationship Specialty Start Date End Date Lolly Oliveira MD [address] [place] [address] PCP - General 07/17/13 documented as of this encounter
--- OUTSIDE RECORDS SUMMARY | 2024-01-21 11:29 | XMS_ITS | Encounter Summary ---
Author Organization [facility] [place] [address] Care Team Providers Care Palliative Senior Np Name Role Phone Lolly Oliveira MD Primary Care Provider [phone] Encounter Details Date Type Department Care Team (Late st Contact Info) Description 03/15/2023 Telephone Cardiology at [address] [phone] Saranya Ma Social History Tobacco Use Types [...] her to have an echo done at [facility] prior to her appt withmim there on 05/12/23. Message sent to Dr. Mcmahon asking him to put order in if he would like her to have this done. Saranya Ma Sr. Clinical Procedure Regional Planner/Records Management Assistant documented in this encounter Plan of Treatment Upcoming Encounters Date Type Department Care Team (Late st Contact Info) Description 04/15/2024 10:00 AM EST Hospital Encounter Non-[place] [address] Arrived documented as of this encounter Visit Diagnoses Not on filedocumented in this encounter Care Teams Palliative Senior Np Relationship Specialty Start Date End Date Lolly Oliveira MD [address] [place] [address] PCP - General 07/17/13 documented as of this encounter
--- OUTSIDE RECORDS SUMMARY | 2024-01-21 11:29 | XMS_ITS | Encounter Summary ---
[place] [address] Care Team Providers Care Laboratory Associate Name Role Phone Lolly Oliveira MD Primary Care Provider [phone] Encounter Details Date Type Department Care Team [...] on filedocumented in this encounter Care Teams Laboratory Associate Relationship Specialty Start Date End Date Lolly Oliveira MD [address] [place] [address] PCP - General 07/17/13 documented as of this encounter
--- OUTSIDE RECORDS SUMMARY | 2024-01-21 11:29 | XMS_ITS | Encounter Summary ---
Author Organization [facility] [place] [address] Care Team Providers Care Liner Machine Operator Name Role Phone Lolly Oliveira MD Primary Care Provider [phone] Reason for Referral * Diagnostic Test (Routine) - Closed Specialty Diagnoses / Procedures Referred By Contac t Referred To Contact Radiology Diagnoses Left bundle branch block Nonischemic cardiomyopathy Procedures MRI Cardiac Morphology Function With Flow Velocity Quantification wwo Contrast MRI Cardiac Morphology Function wwo Contrast Lalit Mcmahon MD [facility] [place] [address] [place] [address] Referral ID Status Reason Start Date Expiration Date V isits Requested Visits Authorized [id number] Closed Specialty Service Requested 05/06/2022 11/07/2023 2 1 Encounter Details Date Type Department Care Team (Late st Contact Info) Description 05/06/2022 Orders Only Cardiology at [address] [phone] [facility] [place] [address] Left bundle branch block; Nonischemic cardiomyopathy Social [...] AM EST Hospital Encounter Non-[place]vasive [place] [phone] Arrived documented as of this encounter Results [...] cardiomyopathies documented in this encounter Care Teams Liner Machine Operator Relationship Specialty Start Date End Date Lolly Oliveira MD [address] [place] [address] PCP - General 07/17/13 documented as of this encounter
--- OUTSIDE RECORDS SUMMARY | 2024-01-21 11:29 | XMS_ITS | Encounter Summary ---
Author Organization [facility] [place] [address] Care Team Providers Care Missile Control Pilot Name Role Phone Lolly Oliveira MD Primary Care Provider [phone] Encounter Details Date Type Department Care Team (Latest Contact Info) Description 10/18/2023 10:00 AM EDT - 10/18/2023 11:59 PM EDT Hospital Encounter Non-Invasive [place] [phone] Discharge Disposition: Home Social History Tobacco Use [...] spacer fluticasone propionate (Flonase) 50 mcg/actuation [place], Suspension 1 spray by Each Nare route daily as needed. documented as of this encounter Plan of Treatment Upcoming Encounters Date Type Department Care Team (Late st Contact Info) Description 04/15/2024 10:00 AM EST Hospital Encounter Non-Invasive [place] [address] Arrived documented as of this encounter Procedures [...] on filedocumented in this encounter Care Teams Missile Control Pilot Relationship Specialty Start Date End Date Lolly Oliveira MD [address] [place] [address] PCP - General 07/17/13 documented as of this encounter
--- OUTSIDE RECORDS SUMMARY | 2024-01-21 11:29 | XMS_ITS | Encounter Summary ---
Author Organization [facility] [place] [address] Care Team Providers Care Purchasing/Receiving Name Role Phone Lolly Oliveira MD Primary Care Provider [phone] Encounter Details Date Type Department Care Team (Late st Contact Info) Description 05/18/2023 Refill Dermatology at [address] [address] Nora Meredith LPN Social History [...] voiced understanding. Order sent to [facility] drug. documented in this encounter Plan of Treatment Upcoming Encounters Date Type Department Care Team (Late st Contact Info) Description 04/15/2024 10:00 AM EST Hospital Encounter Non-Invasive [place] [address] Arrived documented as of this encounter Visit Diagnoses Not on filedocumented in this encounter Care Teams Purchasing/Receiving Relationship Specialty Start Date End Date Lolly Oliveira MD [address] [place] [address] PCP - General 07/17/13 documented as of this encounter
--- OUTSIDE RECORDS SUMMARY | 2024-01-21 11:29 | XMS_ITS | Encounter Summary ---
Author Organization [facility] [place] [address] Care Team Providers Care Vp Clinical Research Name Role Phone Lolly Oliveira MD Primary Care Provider [phone] Reason for Visit * Auth/Cert (Routine) Specialty Diagnoses / Procedures Referred By Contac t Referred To Contact Diagnoses Left bundle-branch block, unspecified Other cardiomyopathies Left bundle branch block [I44.7]Nonischemic cardiomyopathy [I42.8] Procedures PRG CATH PLMT LEFT HEART CATH & ARTS W/INJ & ANGIO IMG S&I ELECTROPHYSIOLOGY PROCEDURE Lalit Mcmahon MD [facility] [address] [facility] Referral ID Status Reason Start Date Expiration Date Visits Re quested Visits Authorized [id number] 1 1 Encounter Details Date Type Department Care Team (Late st Contact Info) Description 07/23/2022 1:00 PM EDT - 07/23/2022 5:30 PM EDT Surgery [place] [address] Lalit Mcmahon MD [facility] [address] ELECTROPHYSIOLOGY PROCEDURE Social History Tobacco Use Types [...] MD Follow-up Recommendations for Providers: - s/p INFORMATICS NURSE-D implant - post implant QRS 130 ms - reviewed post-implant instructions - no medication changes - Follow up in device clinic for wound/device check in ~10 days ([facility]) Inpatient Provider Contact Information: Cardiac Electrophysiology - Discharge Diagnoses (Hospital Problems) and Secondary Diagnoses (Chronic Problems): Active Hospital Problems Diagnosis ??? HFrEF (heart failure with reduced ejection fraction) Resolved Hospital Problems No resolved problems to display. Active Non-Hospital Problems Diagnosis ??? Dermatofibroma ??? Nevus ??? Solar lentigo Operations/Major Procedures: 07/23/22: [facility] INFORMATICS NURSE-D implant History of Presentation: 71 y.o. female with a history of HFrEF, LBBB, QRS >150, NYHA II who is POD#1 of INFORMATICS NURSE-D implant ([employer]). Hospital Course: Elective admission for INFORMATICS NURSE-D implant Admitted post-implant for pain management, telemetry [...] (heart failure with reduced ejection fraction) [I50.20] INFORMATICS NURSE-D implant Admission Condition: good Indication for Admission: [...] g Refills: 3 fluticasone propionate 50 mcg/actuation [place], Suspension Commonly known as: Flonase 1 [...] incision. Make sure to use a cloth mercerizer back tender (such as a towel) in [...] F. The office scheduling phone number is [phone]. ARM MOVEMENT RESTRICTIONS POST-IMPLANT - Do not [...] please call the Cardiac ElectrophysiologyTriage Nurse at [phone], option 3. General Instructions None Discharge References/Attachments [...] incision. Make sure to use a cloth mercerizer back tender (such as a towel) in [...] F. The office scheduling phone number is [phone]. ARM MOVEMENT RESTRICTIONS POST-IMPLANT - Do not [...] please call the Cardiac ElectrophysiologyTriage Nurse at [phone], option 3. documented in this encounter Medications [...] with spacer fluticasone propionate (Flonase) 50 mcg/actuation [place], Suspension 1 spray by Each Nare [...] Cardiac Electrophysiology Post-Implant Device Interrogation Luna Mott [id number] 07/24/2022 History: Luna Mott is a 71 y.o. female with a history of HFrEF, LBBB, QRS >150, NYHA II who is POD#1 of INFORMATICS NURSE-D implant ([employer]). Overall feels well this morning. Ready [...] Neuro- A&Ox3 Device Interrogation: Data ?? Shoe Shiner Model # Serial # Generator [employer] [id number] Atrial Lead [employer] [id number] RV Lead [employer] 0672 [id number] LV Lead [employer] [id number] ?? Diagnostics Pacing Mode: DDD 60-130 Underlying Rhythm: Rosebud Atrial Episodes: None Ventricular Episodes: None FINAL PROGRAMMING: Pacing: Mode Lower rate (ppm) Upper rate (ppm) ?? DDD 60 130 VF: Rate (bpm) #Antitachycardia pacing First shock energy (J) ?? 200 Quick convert 41 VT: 170 Monitor only Monitor only ? Battery and Leads Impedances (ohms) Sensing (mV) Thresholds HV RA RV LV RA RV LV RA RV LV 73 [phone] (LVa) 7.7 13.1 >25 0.4V @ 0.4 ms 0.4V @ 0.4 ms 0.5 V @ 1.0 ms POD#1 CXR: All leads in nominal positioning Impression: 71 y.o. female who is s/p INFORMATICS NURSE-D implant for LBBB, NYHA II, HFrEF. - Appropriate device function post-implant - CXR negative for post-implant complications - Changed sensed AV delay from 130 to 110 Plan: 1. Reviewed standard post-implant discharge instructions (see patient instructions) including arm restrictions, wound care, bathing, and driving 2. No medication changes. 3. Follow up in device clinic for wound/device check in ~10 days ([facility]) Fadi Nunez MD 07/24/2022 Pager: [phone] I met with the patient today and [...] agreement. ? Dr. Lalit Mcmahon, electrophysiology attending ([id number]) * Zaria Wright RN - 07/23/2022 8:28 [...] HF, QRS > 150 ms presents for INFORMATICS NURSE-D placement. ROS: Denies recent fevers or chills [...] 0.9) flush 5 mL 5 mL Intravenous [id number] ramos MD ??? sodium chloride 0.9 % [...] HF, QRS > 150 ms presents for INFORMATICS NURSE-D placement. Backup would be LBBAP lead. Antibiotics: cefazolin Rationales for, intended benefits and potential risk of planned procedures reviewed. The patient indicated understanding and agreement with the plan. Informed consent signed. Procedure checklist completed. Fadi Nunez MD Cardiac Electrophysiology Fellow [facility] Pager [phone] 07/23/2022 I met with the patient today [...] agreement. ? Dr. Lalit Mcmahon, electrophysiology attending ([id number]) documented in this encounter Miscellaneous Notes * Brief Op Note - Lalit Mcmahon MD - 07/23/2022 4:04 PM EDT Brief Operative Note Patient Name: Luna Mott : [id number] MR#: [id number] Case Date: 07/23/2022 Surgeon: Surgeon(s) and Role: [...] AM EST Hospital Encounter [place] [address] Arrived Scheduled Orders Name Type Priority Associated Diagnoses Orde r Schedule EKG 12 Lead ECG Routine Cardiac resynchronization therapy defibrillator (INFORMATICS NURSE-D) in place One Time for 1 Occurrences [...] (Bezet) 522 ms MUSE SYSTEM Calculated R [place] 78 degrees MUSE SYSTEM Calculated T [place] -71 degrees MUSE SYSTEM INTERPRETATION AV dual-paced [...] who have questions please contact the health menagerie caretaker that requested your imaging first. ? Electronically signed by: Kwame Vargas MD, [facility] ([phone]), at 07/24/2022 6:43 AM Narrative 07/24/2022 6:43 [...] patients who have questions please contactthe health menagerie caretaker that requested your imaging first. Electronically signed by: Kwame Vargas MD, [facility]([phone]), at 07/24/2022 6:43 AM Lalit Mcmahon MD IMG DX ORDERABLES * ELECTROPHYSIOLOGY PROCEDURE (07/23/2022 1:11 PM EDT) Anatomical Region Laterality Modality Other Narrative 07/23/2022 4:24 PM EDT Table formatting from the original result was not included. BIVENTRICULAR ICD IMPLANTATION Furniture Dipper: Lalit Mcmahon MD Fellow: Fadi Nunez MD [...] entire procedure. LEAD AND GENERATOR DATA: Shoe Shiner Model # Serial # Generator [employer] [id number] Atrial Lead [employer] [id number] RV Lead [employer] 0672 [id number] LV Lead [employer] [id number] PACE/SENSE DATA: Sensed wave (mV) Threshold (V) [...] (cGycm2) 300 CONCLUSIONS: Successful implantation of a [employer] biventricular ICD for primary prevention and treatment of symptoms related to congestive heart failure. Follow up in EP clinic in 1-2 months. Procedures performed: new ICD system ( cpt 89225-X4); implant LV lead at time of ICD insertion (cpt 02632) I have read, edited and approve of this report: Lalit Mcmahon MD [facility] Cardiac Electrophysiology 07/23/2022 4:22 PM Procedure Note Lalit Mcmahon MD - 07/23/2022 BIVENTRICULAR ICD IMPLANTATION Furniture Dipper: Lalit Mcmahon MD Fellow: Fadi Nunez MD [...] the entireprocedure. LEAD AND GENERATOR DATA: Shoe Shiner Model # Serial # Generator [employer] [id number] Atrial Lead [employer] [id number] [id number] RV Lead [employer] 0672 [id number] LV Lead [employer] [id number] [id number] PACE/SENSE DATA: Sensed wave (mV) Threshold (V) [...] (cGycm2) 300 CONCLUSIONS: Successful implantation of a [employer] biventricular ICD forprimary prevention and treatment of symptoms related to congestive heartfailure. Follow up in EP clinic in 1-2 months. Procedures performed: new ICD system ( cpt 13654-C8); implant LV lead attime of ICD insertion (cpt 17771) I have read, edited and approve of this report: Lalit Mcmahon MD S Cardiac Electrophysiology 07/23/2022 4:22 PM Lalit Mcmahon MD EP PROCEDURE ORDERAB LES * POCT Glucose (07/23/2022 12:54 PM EDT) [facility] Signature Glucose, POC 83 65 - 199 mg/dL [facility] Comment: Supplemental ranges: <140 mg/dL before meals <180 mg/dL all other times of the day Blood 07/23/2022 12:5 4 PM EDT 07/23/2022 12:54 PM EDT Lalit Mcmahon MD POINT OF CARE TEST O RDERABLES Performing Organization Address City/[facility]/ZIP Co de Phone Number [facility] [place] [address] * EKG 12 Lead (07/23/2022 12:33 PM EDT) Ventricular rate 72 BPM MUSE SYSTEM Atrial Rate 72 BPM MUSE SYSTEM P-R Interval 158 ms MUSE SYSTEM QRS Duration 176 ms MUSE SYSTEM Q-T Interval 458 ms MUSE SYSTEM QTC Calculated (Bezet) 501 ms MUSE SYSTEM Calculated P [place] 34 degrees MUSE SYSTEM Calculated R [place] 12 degrees MUSE SYSTEM Calculated T [place] -173 degrees MUSE SYSTEM INTERPRETATION Normal sinus rhythm Left bundle branch block Abnormal ECG No previous ECGs available Confirmed by MD Salome, Lalit ([id number]) on 07/23/2022 1:19:03 PM MUSE SYSTEM 07/23/2022 12:3 3 PM EDT 07/23/2022 1:19 PM EDT Lalit Mcmahon MD ECG ORDERABLES Performing Organization Address [facility]/ZIP Co de Phone Number MUSE SYSTEM * Differential, Automated (07/23/2022 11:55 AM EDT) Neutrophil % 62.6 % [facility] Neutrophil Absolute 4.14 1.70 - 6.10 x10(3)/[facility] Lymph % 27.0 % [facility] Lymphocytes Abs 1.8 0.9 - 3.2 x10(3)/[facility] LAB[facility] Monocyte % 7.3 % [facility] Monocyte Abs 0.5 0.3 - 0.9 x10(3)/[facility] Eos % 2.3 % [facility] Eosinophils Abs 0.2 0.0 - 0.4 x10(3)/[facility] LAB[facility] Basophil % 0.6 % [facility] IT[facility] LABORAT[facility] Baso Absolute 0.0 0.0 - 0.1 x10(3)/[facility] LAB[facility] Immature Gran % 0.20 % [facility] Comment: Immature granulocytes(IG's)percentage and absolute count will include metamyelocytes, myelocytes, and promyelocytes. Blood smears from CBCs yielding IG's will be scanned manually for concordance. If this scan disagrees with the automated IG or if promyelocytes are noted, a manual differential will be performed. Immature Gran Absolute 0.01 0.00 - 0.04 x10(3)/[facility] LAB[facility] Blood 07/23/2022 11:5 5 AM EDT 07/23/2022 12:07 PM EDT Narrative Resulting Agency Comment Spec In Lab Lalit Mcmahon MD HEMATOLOGY ORDERABLE S [facility] [place] [address] * Hemogram (07/23/2022 11:55 AM EDT) White Blood Cell 6.6 4.0 - 9.5 x10(3)/[facility] Red Blood Cell 4.50 4.00 - 5.21 x10(6)/[facility] Hemoglobin 13.7 11.7 - 15.5 g/dL [facility] Hematocrit 42.5 35.7 - 45.8 % [facility] Mean Cell Volume 94.4 82.6 - 94.4 fL [facility] Mean Cell Hemoglobin 30.4 27.1 - 32.0 pg [facility] Mean Cell Hemoglobin Concentration 32.2 31.7 - 35.0 g/dL [facility] Platelet 193 145 - 357 x10(3)/[facility]AT[facility] RDW Standard Deviation 45.5 37.0 - 46.0 fL [facility] RDW coefficient of variation 13.2 11.5 - 14.1 % [facility] Mean Platelet Volume 9.5 7.6 - 12.9 fL [facility] NRBC% auto 0.0 % [facility] IT[facility] LABORATORY NRBC Absolute 0.000 0.000 - 0.000 x10(3)/[facility] Blood 07/23/2022 11:5 5 AM EDT 07/23/2022 12:07 PM EDT Narrative Resulting Agency Comment Spec In Lab Lalit Mcmahon MD HEMATOLOGY ORDERABLE S [facility] [place] [address] * (ABNORMAL) BMP w/fasting Glucose (07/23/2022 11:55 AM EDT) Glucose Fasting 110(H) 65 - 99 mg/dL [facility] Comment: ?Fasting* Glucose Interpretive Criteria Normal [...] of Diabetes Mellitus, Position Statement from the [place] [employer]. ??Diabetes Care, Volume 33, Supplement 1, Mar 2009 Blood Urea Nitrogen 23(H) 8 - 18 mg/dL [facility] Creatinine 1.07 0.70 - 1.20 mg/dL [facility] Sodium 141 135 - 145 mmol/L [facility] Potassium 4.8 3.5 - 5.0 mmol/L [facility] Comment: Please note: ??Patients with WBC >100,000 may have falsely elevated Potassium levels. ??For accurate Potassium quantification in these patients send serum separator tube (gold top) for subsequent determinations. ??Contact the Clinical Chemistry Laboratory if there are any questions. Chloride 106 98 - 107 mmol/L [facility] Carbon Dioxide 26 22 - 31 mmol/L [facility] Anion Gap 9 5 - 15 mmol/L [facility] Calcium 9.7 8.5 - 10.5 mg/dL [facility] Est Glomerular Filtration Rate 55(L) >=60 mL/min/1. 73 m?? [facility] Comment: This patient's estimated [...] Organization Address [facility] Co de Phone Number [facility] [place] [address] * Prothrombin Time (07/23/2022 11:55 AM EDT) Prothrombin Time 11.7 9.4 - 12.5 sec [facility] International Normalization Ratio 1.0 [facility] Comment: An INR <2.0 indicates adequate [...] S Performing Organization Address City/[facility] Co de Phone Number [facility] [place] [address] documented in this encounter Visit Diagnoses Diagnosis HFrEF (heart failure with reduced ejection fraction)- Primary Left bundle branch block Other left bundle branch block Nonischemic cardiomyopathy Other primary cardiomyopathies Cardiac resynchronization therapy defibrillator (INFORMATICS NURSE-D) in place Left bundle branch block Other [...] EP (Intra-Procedure), Routine 1418 (Given - Provider: Fdai Nunez MD) lisinopriL (Zestril) tablet 20 mg [...] Routine documented in this encounter Care Teams Vp Clinical Research Relationship Specialty Start Date End Date Lolly Oliveira MD [address] [place] [address] PCP - General 07/17/13 documented as of this encounter
--- OUTSIDE RECORDS SUMMARY | 2024-01-21 11:29 | XMS_ITS | Encounter Summary ---
Author Organization [facility] Address [facility] [place] [address] Care Team Providers Care Instructional Leader Name Role Phone Lolly Oliveira MD Primary Care Provider [phone] Encounter Details Date Type Department Care Team (Late st Contact Info) Description 07/16/2022 Telephone Cardiology at [address] [id number] Lalit Mcmahon MD [facility] [place] [address] Social History Tobacco Use Types Packs/Day Years [...] her nonischemic cardiomyopathy. She is scheduled for IT INVESTMENT/PORTFOLIO MANAGER-D implantation next week and looks forward to the procedure. We will see each other next week. Lalit Mcmahon MD [facility] Cardiac Electrophysiology 07/16/2022 8:52 AM documented in this encounter Plan of Treatment Upcoming Encounters Date Type Department Care Team (Late st Contact Info) Description 04/15/2024 10:00 AM EST Hospital Encounter [place] [address] Arrived documented as of this encounter Visit Diagnoses Not on filedocumented in this encounter Care Teams Instructional Leader Relationship Specialty Start Date End Date Lolly Oliveira MD [address] [place] [address] PCP - General 07/17/13 documented as of this encounter
--- OUTSIDE RECORDS SUMMARY | 2024-01-21 11:29 | XMS_ITS | Encounter Summary ---
Author Organization [facility] [place] [address] Care Team Providers Care Director Emergency Services Name Role Phone Lolly Oliveira MD Primary Care Provider [phone] Encounter Details Date Type Department Care Team (Late Contact Info) Description 01/14/2022 Telephone Dermatology at [address] [address] Nora Meredith LPN Social History [...] AM EST Hospital Encounter Non[place] [address] Arrived documented as of this encounter Visit Diagnoses Not on filedocumented in this encounter Care Teams Director Emergency Services Relationship Specialty Start Date End Date Lolly Oliveira MD [address] [place] [address] PCP - General 07/17/13 documented as of this encounter
--- OUTSIDE RECORDS SUMMARY | 2024-01-21 11:29 | XMS_ITS | Encounter Summary ---
Author Organization Count Includes [facility] Address [facility] [place] [address] Care Team Providers Care Model Technician Name Role Phone Lolly Oliveira MD Primary Care Provider [phone] Reason for Visit * Auth/Cert (Routine) Specialty Diagnoses / Procedures Referred By Contac t Referred To Contact Diagnoses Left bundle-branch block, unspecified Other cardiomyopathies Left bundle branch block [I44.7]Nonischemic cardiomyopathy [I42.8] Procedures PRG CATH PLMT LEFT HEART CATH & ARTS W/INJ & ANGIO IMG S&I ELECTROPHYSIOLOGY PROCEDURE Lalit Mcmahon MD [facility] [place] [address] [facility] Referral ID Status Reason Start Date Expiration Date Visits Re quested Visits Authorized [id number] 1 1 Encounter Details Date Type Department Care Team (Late st Contact Info) Description 07/23/2022 1:08 PM EDT Anesthesia Event [place] [address] Monae Gonzalez MD [facility] [address] Maria Elena Snyder CRNA [facility] [place] [address] Anesthesia Record Procedure Summary Procedure Name Responsible [...] 1307; median cubital vein (antecubital fossa), right; qlas-fnk-avrtyy catheter system; Anatomical Landmarks; 20 gauge; 07/24/22; [...] 1343; metacarpal vein (top of hand), left; nrji-bwl-zzwwsh catheter system; Anatomical Landmarks; US Not Used; [...] Date: 07/23/22 Room / Location: [facility] A-LAB ROOM 3 / [facility] EP LABS Anesthesia Start: 1308 Anesthesia Stop: 1633 Procedure: ELECTROPHYSIOLOGY PROCEDURE (Left) Diagnosis: Left bundle branch block Nonischemic cardiomyopathy (Left bundle branch block [I44.7]Nonischemic cardiomyopathy [I42.8]) Providers: Lalit Mcmahon MD Responsible Provider: Monae Gonzalez MD Anesthesia Type: general ASA Status: 4 All Anesthesia Providers: Anesthesiologist: oMnae Gonzalez MD; Dominique Sen MD CLINICAL ENGINEERING DIRECTOR: Maria Elena Snyder CRNA Vitals Value Taken Time BP 131/46 07/23/22 1700 Temp 36.7 ??C (98.1 ??F) 07/23/22 1627 Pulse 67 07/23/22 1703 Resp 14 07/23/22 1703 SpO2 98 % 07/23/22 1703 Pain Level Vitals shown include unvalidated device data. Patient Location: PACU/[facility] Level of Consciousness: Conscious but [...] and Nonischemic CM (EF 15-20%)who presents for PACKER SAUSAGE AND WIENER-D. No prior anesthetic records. Pt states that [...] daughter/son and patient who. Plan discussed with CLINICAL ENGINEERING DIRECTOR. Anesthesia Screening documented in this encounter Plan of Treatment Upcoming Encounters Date Type Department Care Team (Late st Contact Info) Description 04/15/2024 10:00 AM [facility] Hospital Encounter Non[place] [address] Arrived documented as of this [...] mg documented in this encounter Care Teams Model Technician Relationship Specialty Start Date End Date Lolly Oliveira MD [address] [place] [address] PCP - General 07/17/13 documented as of this encounter
--- OUTSIDE RECORDS SUMMARY | 2024-01-21 11:29 | XMS_ITS | Encounter Summary ---
Author Organization [facility] Address [facility] [place] [address] Care Team Providers Care Theatre Instructor Name Role Phone Lolly Oliveira MD Primary Care Provider [phone] Encounter Details Date Type Department Care Team (Late st Contact Info) Description 03/15/2023 Orders Only Cardiology at [address] [address] Lalit Mcmahon MD [facility] [place] [address] Nonischemic cardiomyopathy; Biventricular ICD (implantable cardioverter-defibrill ator) [...] AM EST Hospital Encounter [place] [address] Arrived documented as of this encounter Visit Diagnoses Diagnosis Nonischemic cardiomyopathy Other primary cardiomyopathies Biventricular ICD (implantable cardioverter-defibrillator) in place documented in this encounter Care Teams Theatre Instructor Relationship Specialty Start Date End Date Lolly Oliveira MD [address] [place] [address] PCP - General 07/17/13 documented as of this encounter
--- OUTSIDE RECORDS SUMMARY | 2024-01-21 11:29 | XMS_ITS | Encounter Summary ---
Author Organization [facility] [place] [address] Care Team Providers Care Special Education Resource Room Teacher Name Role Phone Lolly Oliveira MD Primary Care Provider [phone] Reason for Visit * Reason Onset Date Comments Post Procedure Call 07/30/2022 Encounter Details Date Type Department Care Team (Late st Contact Info) Description 07/30/2022 Notes Only Cardiology at [address] [phone] Rosenda Sutton, RN Post Procedure Call Social [...] 07/30/2022 9:59 AM EDTSummary: Post Procedure Call: NAMED ACCOUNT EXECUTIVE implant EP RN Post-Procedure Note: Date of Follow Up Call: 07/30/2022 Spoke With: Patient Procedure Type (choose all that apply): ICD Performing MIRLANDE Mcmahon Date of Procedure: 07/23/2022 Date of Discharge: 07/24/2022 Follow Up EP Visit Scheduled?: No No Follow Up Visit Reason: Follow up outside Outside Location: [facility] Date of Non EP Visit: [...] Note: Follow-up Recommendations for Providers: - s/p NAMED ACCOUNT EXECUTIVE-D implant - post implant QRS 130 ms [...] [facility] Hospital Encounter [place] [address] Arrived documented as of this encounter Visit Diagnoses Not on filedocumented in this encounter Care Teams Special Education Resource Room Teacher Relationship Specialty Start Date End Date Lolly Oliveira MD [address] [place] [address] PCP - General 07/17/13 documented as of this encounter
--- OUTSIDE RECORDS SUMMARY | 2024-01-21 11:29 | XMS_ITS | Encounter Summary ---
Author Organization [facility] [place] [address] Care Team Providers Care Tube Buffer Name Role Phone Lolly Oliveira MD Primary Care Provider [phone] Encounter Details Date Type Department Care Team (Latest Contact Info) Description 04/21/2023 10:00 AM EST - 04/21/2023 11:59 PM EST Hospital Encounter [place] [phone] Discharge Disposition: Home Social History Tobacco Use [...] with spacer fluticasone propionate (Flonase) 50 mcg/actuation [employer], Suspension 1 spray by Each Nare route [...] AM EST Hospital Encounter Non-[place] [address] Arrived documented as of this [...] on filedocumented in this encounter Care Teams Tube Buffer Relationship Specialty Start Date End Date Lolly Oliveira MD [address] [place] [address] PCP - General 07/17/13 documented as of this encounter
--- OUTSIDE RECORDS SUMMARY | 2024-01-21 11:29 | XMS_ITS | Encounter Summary ---
Author Organization [facility] [place] [address] Care Team Providers Care Rental Car Ferry Driver Name Role Phone Lolly Oliveira MD Primary Care Provider [phone] Encounter Details Date Type Department Care Team (Late st Contact Info) Description 04/01/2021 3:30 PM EST Office Visit Dermatology at [address] [phone] Clay Ramírez MD [address], [place] [address] Psoriasis, guttate Social History Tobacco Use Types [...] AM EST Hospital Encounter Non-[place]vasive [place] [address] Arrived documented as of this encounter Visit Diagnoses Diagnosis Psoriasis, guttate Other psoriasis documented in this encounter Care Teams Rental Car Ferry Driver Relationship Specialty Start Date End Date Lolly Oliveira MD [address] [place] [address] PCP - General 07/17/13 documented as of this encounter
--- OUTSIDE RECORDS SUMMARY | 2024-01-21 11:29 | XMS_ITS | Encounter Summary ---
Author Organization [facility] [place] [address] Care Team Providers Care Process Engineering Intern Name Role Phone Lolly Oliveira MD Primary Care Provider [phone] Encounter Details Date Type Department Care Team [...] Hospital Encounter Non-Invasive [place] [address] Arrived documented as of this encounter Visit Diagnoses Not on filedocumented in this encounter Care Teams Process Engineering Intern Relationship Specialty Start Date End Date Lolly Oliveira MD [address] [place] [address] PCP - General 07/17/13 documented as of this encounter
--- OUTSIDE RECORDS SUMMARY | 2024-01-21 11:29 | XMS_ITS | Encounter Summary ---
Author Organization [facility] [place] [address] Care Team Providers Care Catalogue Illustrator Name Role Phone Lolly Oilveira MD Primary Care Provider [phone] Encounter Details Date Type Department Care Team (Late st Contact Info) Description 01/29/2023 Notes Only Cardiology at [address] [address] Merle Lin PA [facility] [place] [address] Social History Tobacco Use Types Packs/Day Years Used Date Smoking Tobacco: Never Alcohol Use Standard Drinks/Week Comments Not Currently 0 (1 standard drink = 0.6 oz pur e alcohol) [facility] Inpatient Questions Answer Date Recorded [...] pdf document Date of transmission: 01/29/2023 Device beating machine operator: BSI Device type: BUS AND TROLLEY INSPECTING DISPATCHER-D Presenting rhythm: /RVP/LVP AP 21% Right TAILING HAND 100% Left TAILING HAND: 100% Battery: 10.5 years HeartLogic Index rising in setting of increasing S3 intensity, increasing respiratory rate, increasing night heart rate, and increasing mean heart rate. MICKEY Villa 01/29/2023 9:06 AM documented in this encounter Plan of Treatment Upcoming Encounters Date Type Department Care Team (Late st Contact Info) Description 04/15/2024 10:00 AM EST Hospital Encounter Non-Invasive [place] [address] Arrived documented as of this encounter Visit Diagnoses Not on filedocumented in this encounter Care Teams Catalogue Illustrator Relationship Specialty Start Date End Date Lolly Oliveira MD [address] [place] [address] PCP - General 07/17/13 documented as of this encounter
--- OUTSIDE RECORDS SUMMARY | 2024-01-21 11:29 | XMS_ITS | Encounter Summary ---
[place] [address] Care Team Providers Care Plate Glass Installer Helper Name Role Phone Lolly Oliveira MD Primary Care Provider [phone] Encounter Details Date Type Department Care Team (Late st Contact Info) Description 04/09/2022 Refill Dermatology at [address] [address] Nora Meredith, OXYGEN THERAPY TECHNICIAN Social History Tobacco Use Types Packs/Day Years Used Date Smoking Tobacco: Never Sex and Gender Information Value Date Recorded Sex Assigned at Not on file Gender Identity Not on file Sexual Orientation Not on file documented as of this encounter Plan of Treatment Upcoming Encounters Date Type Department Care Team (Late st Contact Info) Description 04/15/2024 10:00 AM [facility] Hospital Encounter [place] [address] Arrived documented as of this encounter Visit Diagnoses Not on filedocumented in this encounter Care Teams Plate Glass Installer Helper Relationship Specialty Start Date End Date Lolly Oliveira MD [address] [place] [address] PCP - General 07/17/13 documented as of this encounter
--- OUTSIDE RECORDS SUMMARY | 2024-01-21 11:29 | XMS_ITS | Encounter Summary ---
Author Organization [facility] [place] [address] Care Team Providers Care Sheet Tester Name Role Phone Lolly Oliveira MD Primary Care Provider [phone] Reason for Visit * Reason Onset Date Comments Other 07/24/2022 Implanted Cardia c Device Teaching/Education Encounter Details Date Type Department Care Team (Late st Contact Info) Description 07/24/2022 Notes Only Cardiology at [address] [phone] Letha Arroyo Other (Implanted Cardiac Device Teaching/Education) Social History Tobacco Use Types Packs/Day Years Used Date Smoking Tobacco: Never Alcohol Use Standard Drinks/Week Comments Not Currently 0 (1 standard drink = 0.6 oz pur e alcohol) [facility] Inpatient Questions Answer Date Recorded [...] to call the Cardiac Device Clinic at [phone] with any questions. Plan: Post op check: [...] st Contact Info) Description 04/15/2024 10:00 AM [facility] Hospital Encounter Non[place] [address] Arrived documented as of this encounter Visit Diagnoses Not on filedocumented in this encounter Care Teams Sheet Tester Relationship Specialty Start Date End Date Lolly Oliveira MD [address] [place] [address] PCP - General 07/17/13 documented as of this encounter
--- OUTSIDE RECORDS SUMMARY | 2024-01-21 11:29 | XMS_ITS | Encounter Summary ---
Author Organization [facility] [place] [address] Care Team Providers Care Tool Inspector Name Role Phone Lolly Oliveira MD Primary Care Provider [phone] Encounter Details Date Type Department Care Team (Late st Contact Info) Description 07/26/2013 Orders [place] [phone] Eleno Christian MD [facility] [place] [address] Social History Tobacco Use Types Packs/Day Years [...] EST Hospital Encounter Non-Invasive [place] [address] Arrived documented as of this encounter Visit Diagnoses Not on filedocumented in this encounter Care Teams Tool Inspector Relationship Specialty Start Date End Date Lolly Oliveira MD [address] [place] [address] PCP - General 07/17/13 documented as of this encounter
--- OUTSIDE RECORDS SUMMARY | 2024-01-21 11:29 | XMS_ITS | Encounter Summary ---
Author Organization [facility] [place] [address] Care Team Providers Care Automatic Beading Lathe Operator Name Role Phone Lolly Oliveira MD Primary Care Provider [phone] Encounter Details Date Type Department Care Team (Late st Contact Info) Description 05/18/2023 Telephone Dermatology at [address] [address] Nora Meredith LPN Social [...] st Contact Info) Description 04/15/2024 10:00 AM [facility] Hospital Encounter [place] [address] Arrived documented as of this encounter Visit Diagnoses Not on filedocumented in this encounter Care Teams Automatic Beading Lathe Operator Relationship Specialty Start Date End Date Lolly Oliveira MD [address] [place] [address] PCP - General 07/17/13 documented as of this encounter
--- OUTSIDE RECORDS SUMMARY | 2024-01-21 11:30 | XMS_ITS | Encounter Summary ---
Author Organization [facility] [place] [place] [address] Care Team Providers Care Operations Agent Name Role Phone Lolly Oliveira MD Primary Care Provider [phone] Encounter Details Date Type Department Care Team (Latest Contact Info) Description 07/18/2013 [place] [phone] Alia Fraire MD [facility] [place] [address] Mammographic microcalcification (Primary Dx) Social History Tobacco [...] AM EST Hospital Encounter Non[place] [address] Arrived documented as of this encounter Results [...] are present on specimen digital X-ray. A [employer] Eviva-Stereo 13 Cylinder marker clip was placed. [...] calcifications are present on specimendigital X-ray. A [employer] Eviva-Stereo 13 Cylinder marker clip was placed. [...] not layer and, therefore, are not business process representative of milk of calcium. Again, these [...] not layer and, therefore, are not business process representative of milk of calcium. Again, these have an amorphous andpunctate appearance and remain indeterminate. Stereotactic guided biopsy isrecommended. Alia Fraire MD IMG MAMMO ORDERABLES documented in this encounter Visit Diagnoses Diagnosis Mammographic microcalcification- Primary Mammographic microcalcification Mammographic microcalcification Mammographic microcalcification Mammographic microcalcification documented in this encounter Care Teams Operations Agent Relationship Specialty Start Date End Date Lolly Oliveira MD [address] [place] [address] PCP - General 07/17/13 documented as of this encounter
--- OUTSIDE RECORDS SUMMARY | 2024-01-21 11:30 | XMS_ITS | Encounter Summary ---
Author Organization [place] [address] Care Team Providers Care Wire Sawyer Name Role Phone Lolly Oliveira MD Primary Care Provider [phone] Encounter Details Date Type Department Care Team (Latest Contact Info) Description 07/26/2013 9:44 AM EDT - 07/26/2013 11:59 PM EDT Hospital En[place] [address] CLINIC, Lolly So MD [address] [place], [place] [id number] Mammographic microcalcification Discharge Disposition: Home Social History [...] AM EST Hospital Encounter Non-Invasive [place] [address] Arrived documented as of this encounter Procedures [...] are present on specimen digital X-ray. A [employer] Logic-Stereo 13 Cylinder marker clip was placed. Cranio-caudal [...] documented in this encounter Care Teams Wire Sawyer Relationship Specialty Start Date End Date Lolly Oliveira MD [address] [place] [address] PCP - General 07/17/13 documented as of this encounter
--- OUTSIDE RECORDS SUMMARY | 2024-01-21 11:30 | XMS_ITS | Encounter Summary ---
Author Organization [place] [address] Care Team Providers Care Waste Management Recycling Technician Name Role Phone Lolly Oliveira MD Primary Care Provider [phone] Encounter Details Date Type Department Care Team (Late st Contact Info) Description 06/29/2011 [place] [address] Eleno Christian MD [facility] [place] [address] Social History Tobacco Use Types Packs/Day Years [...] Hospital Encounter Non-[place] [address] Arrived documented as of this encounter Procedures [...] is a Non-reportable exam Eleno Christian MD [facility] FILM LIBRARY ORD ERABLES documented in this encounter Visit Diagnoses Not on filedocumented in this encounter Care Teams Waste Management Recycling Technician Relationship Specialty Start Date End Date Lolly Oliveira MD [address] [place] [address] PCP - General 07/17/13 documented as of this encounter
--- OUTSIDE RECORDS SUMMARY | 2024-01-21 11:30 | XMS_ITS | Encounter Summary ---
Author Organization [facility] [place] [address] Care Team Providers Care Stable Hand Name Role Phone Lolly Oliveira MD Primary Care Provider [phone] Encounter Details Date Type Department Care Team (Latest Contact Info) Description 07/20/2013 9:26 AM EDT - 07/20/2013 11:59 PM EDT Hospital En[place] [address] CLINIC, Lolly So MD [address] [place], [place] [address] Mammographic microcalcification Discharge Disposition: Home Social History [...] Encounter Non-Invasive [place] [address] Arrived documented as of this encounter Procedures [...] does not layer and, therefore, are not motor vehicle representative of milk of calcium. Again, these [...] does not layer and, therefore, are not motor vehicle representative of milk of calcium. Again, these have an amorphous andpunctate appearance and remain indeterminate. Stereotactic guided biopsy isrecommended. Alia Fraire MD IMG MAMMO ORDERABLES documented in this encounter Visit Diagnoses Diagnosis Mammographic microcalcification documented in this encounter Care Teams Stable Hand Relationship Specialty Start Date End Date Lolly Oliveira MD [address] [place] [address] PCP - General 07/17/13 documented as of this encounter
--- OUTSIDE RECORDS SUMMARY | 2024-01-21 11:30 | XMS_ITS | Encounter Summary ---
Author Organization [facility] [place] [address] Care Team Providers Care University Professor Name Role Phone Lolly Oliveira MD Primary Care Provider [phone] Encounter Details Date Type Department Care Team (Latest Contact Info) Description 07/26/2013 9:45 AM EDT - 07/26/2013 11:59 PM EDT Hospital En[place] [address] Mammographic microcalcification Social History Tobacco Use Types [...] AM EST Hospital Encounter Non-Invasive [place] [address] Arrived documented as of this encounter Procedures [...] microcalcification documented in this encounter Care Teams University Professor Relationship Specialty Start Date End Date Lolly Oliveira MD [address] [place] [address] PCP - General 07/17/13 documented as of this encounter
--- OUTSIDE RECORDS SUMMARY | 2024-01-21 11:30 | XMS_ITS | Encounter Summary ---
[place] [address] Care Team Providers Care Route Vending Machine Servicer Name Role Phone Lolly Oliveira MD Primary Care Provider [phone] Encounter Details Date Type Department Care Team (Late st Contact Info) Description 07/17/2013 [place] [address] Lolly Oliveira MD [address] [place], [place] [id number] Social History Tobacco Use Types Packs/Day Years [...] Hospital Encounter Non-[place] [address] Arrived documented as of this encounter Procedures [...] on filedocumented in this encounter Care Teams Route Vending Machine Servicer Relationship Specialty Start Date End Date Lolly Oliveira MD [address] [place] [address] PCP - General 07/17/13 documented as of this encounter
--- OUTSIDE RECORDS SUMMARY | 2024-01-21 11:30 | XMS_ITS | Encounter Summary ---
Author Organization [facility] [place] [address] Care Team Providers Care Camera Systems Engineer Name Role Phone Unavailable Primary Care Provider Unavailabl e Encounter Details Date Type Department Care Team (Late st Contact Info) Description 07/14/2013 External Results XRay at [address] [place] [address] Provider, Scanning Social History Tobacco Use Types [...] AM EST Hospital Encounter Non-Invasive Cardiology Lab [facility] [place] [address] Arrived documented as of this encounter Procedures [...]
--- OUTSIDE RECORDS SUMMARY | 2024-01-21 11:30 | XMS_ITS | Encounter Summary ---
Author Organization [facility] [place] [address] Care Team Providers Care Automobile Service Station Attendant Name Role Phone Lolly Oliveira MD Primary Care Provider [phone] Encounter Details Date Type Department Care Team (Latest Contact Info) Description 07/17/2013 8:40 AM EDT - 07/17/2013 11:59 PM EDT Hospital Encounter XRay at [address] [place] [address] CLINIC, DR [facility] Discharge Disposition: Home Social [...] AM EST Hospital Encounter Non-Invasive [place] [address] Arrived documented as of this encounter Visit Diagnoses Not on filedocumented in this encounter Care Teams Automobile Service Station Attendant Relationship Specialty Start Date End Date Lolly Oliveira MD [address] [place] [address] PCP - General 07/17/13 documented as of this encounter
--- OUTSIDE RECORDS SUMMARY | 2024-01-21 11:30 | XMS_ITS | Encounter Summary ---
Author Organization [facility] [place] [place] [address] Care Team Providers Care Police Justice Name Role Phone Unavailable Primary Care Provider Unavailabl e Encounter Details Date Type Department Care Team (Late st Contact Info) Description 07/04/2012 [place] [address] Eleno Christian MD [facility] [place] [address] Social History Tobacco Use Types Packs/Day Years [...] AM EST Hospital Encounter Non-[place] [address] Arrived documented as of this encounter Procedures [...] is a Non-reportable exam Eleno Christian MD [facility] FILM LIBRARY ORD ERABLES documented in this encounter Visit Diagnoses Not on filedocumented in this encounter
--- OUTSIDE RECORDS SUMMARY | 2024-01-21 11:30 | XMS_ITS | Encounter Summary ---
Author Organization [facility] [place] [address] Care Team Providers Care Gas Appliance Servicer Name Role Phone Unavailable Primary Care Provider Unavailabl e Encounter Details Date Type Department Care Team (Late st Contact Info) Description 07/14/2013 [place] [address] Eleno Christian MD [facility] [place] [address] Social History Tobacco Use Types Packs/Day Years [...] AM EST Hospital Encounter Non-[place] [address] Arrived documented as of this encounter Visit Diagnoses Not on filedocumented in this encounter
[2024-01-21 11:37] VITALS: BP 131/70; PULSE 65
--- OUTSIDE RECORDS SUMMARY | 2024-01-26 10:51 | XMS_ITS | Encounter Summary ---
Author Organization [facility] Address [address] [place] [address] Care Team Providers Care Truck Unloader Name Role Phone Lolly Oliveira MD Primary Care Provider [phone] Encounter Details Date Type Department Care Team (Late st Contact Info) Description 04/17/2005 Results Only [facility] conversion [address] [place] [address] Lolly Oliveira MD [address] [place], [place] [id number] Social History Tobacco Use Types Packs/Day Years [...] ? JING ALVARENGA ? Accession #: ? [id number] : ? 1950 (Age: 54) ??F ?Collect Date: ? 04/17/2005 Location: ? [facility] ? Receive Date: ? 04/21/2005 Provider: ?LOLLY OLIVEIRA MD Copy to: ? Specimen/Source: ?ThinPrep Pap Test, Cervix/Endocervix, processed on Hydrobolt ThinPrep Imaging System, with manual evaluation Last [...] Final Resu lt [facility] [address] [place] [address] documented in this encounter Visit Diagnoses Not on filedocumented in this encounter Care Teams Truck Unloader Relationship Specialty Start Date End Date Lolly Oliveira MD [address] [place] [address] PCP - General 11/13/08 documented as of this encounter
--- OUTSIDE RECORDS SUMMARY | 2024-01-26 10:51 | XMS_ITS | Encounter Summary ---
Author Organization [facility] [place] [address] Care Team Providers Care Metal Stamping Machine Operator Name Role Phone Lolly Oliveira MD Primary Care Provider [phone] Reason for Visit * Reason Comments Follow-up 8 weeks UVB treatmen t twice weekly Encounter Details Date Type Department Care Team (Late st Contact Info) Description 07/19/2023 11:00 AM EDT Office Visit Dermatology at [address] [phone] Clay Ramírez MD [address], ERIKA A DERMATOLOGY [place], [place] [address] Psoriasis Social History Tobacco Use Types Packs/Day [...] st Contact Info) Description 04/15/2024 10:00 AM [facility] Hospital Encounter Non-Invasive [place] [address] Arrived documented as of this encounter Visit Diagnoses Diagnosis Psoriasis Other psoriasis documented in this encounter Care Teams Metal Stamping Machine Operator Relationship Specialty Start Date End Date Lolly Oliveira MD [address] [place] [address] PCP - General 07/17/13 documented as of this encounter
--- OUTSIDE RECORDS SUMMARY | 2024-01-26 10:51 | XMS_ITS | Encounter Summary ---
Author Organization [facility] [place] [address] Care Team Providers Care Science Faculty Member Name Role Phone Lolly Oliveira MD Primary Care Provider [phone] Encounter Details Date Type Department Care Team (Latest Contact Info) Description 01/21/2023 10:00 AM EST - 01/21/2023 11:59 PM EST Hospital Encounter Non-[place] [address] Discharge Disposition: Home Social History Tobacco Use [...] with spacer fluticasone propionate (Flonase) 50 mcg/actuation [place], Suspension 1 spray by Each Nare route [...] EST Hospital Encounter Non-Invasive [place] [address] Arrived documented as of this [...] on filedocumented in this encounter Care Teams Science Faculty Member Relationship Specialty Start Date End Date Lolly Oliveira MD [address] [place] [address] PCP - General 07/17/13 documented as of this encounter
--- OUTSIDE RECORDS SUMMARY | 2024-01-26 10:51 | XMS_ITS | Encounter Summary ---
Author Organization [facility] Address [address] [place] [address] Care Team Providers Care Canteen Operator Name Role Phone Lolly Oliveira MD Primary Care Provider [phone] Encounter Details Date Type Department Care Team (Late st Contact Info) Description 05/29/2002 Results Only [facility] [place] conversion [address] [place] [address] Silvia Diehl, [address] [place] [id number] Social History Tobacco Use Types Packs/Day Years [...] Name: ? LYLEJING ? Accession #: ? [id number] : ? 1950 (Age: 51) ??F ?Collect Date: ? 05/29/2002 Location: ? [facility] ? Receive Date: ? 05/31/2002 Provider: ?SILVIA DIEHL UNMANNED AIRCRAFT SYSTEMS ROBOTICIST Copy to: ? Specimen/Source: ?ThinPrep Pap Test, [...] [facility] 05/29/2002 05/31/2002 us Silvia Diehl [employer]MAN[employer] ROBOTICIST PATHOLOGY ORDERABLES Final R esult [facility] [address] [place] [address] documented in this encounter Visit Diagnoses Not on filedocumented in this encounter Care Teams Canteen Operator Relationship Specialty Start Date End Date Lolly Oliveira MD [address] [place] [address] PCP - General 11/13/08 documented as of this encounter
--- OUTSIDE RECORDS SUMMARY | 2024-01-26 10:51 | XMS_ITS | Encounter Summary ---
Author Organization [facility] [place] [address] Care Team Providers Care Meat Dresser Name Role Phone Lolly Oliveira MD Primary Care Provider [phone] Encounter Details Date Type Department Care Team (Late st Contact Info) Description 05/18/2023 Refill Dermatology at [address] [address] Nora Meredith LPN Social History [...] patient. She voiced understanding. Order sent to [facility] drug. documented in this encounter Plan of Treatment Upcoming Encounters Date Type Department Care Team (Late st Contact Info) Description 04/15/2024 10:00 AM EST Hospital Encounter Non[place] [address] Arrived documented as of this encounter Visit Diagnoses Not on filedocumented in this encounter Care Teams Meat Dresser Relationship Specialty Start Date End Date Lolly Oliveira MD [address] [place] [address] PCP - General 07/17/13 documented as of this encounter
--- OUTSIDE RECORDS SUMMARY | 2024-01-26 10:51 | XMS_ITS | Encounter Summary ---
Author Organization [facility] Address [address] [place] [address] Care Team Providers Care Stakes Player Name Role Phone Lolly Oliveira MD Primary Care Provider [phone] Encounter Details Date Type Department Care Team (Late st Contact Info) Description 05/02/2004 Results Only [facility] [place] conversion [address] [place] [address] Lolly Oliveira MD [address] [place], [place] [phone] Social History Tobacco Use Types Packs/Day Years [...] 68. [facility] Report Status Final [id number] [facility] 05/02/2004 9:32 EST 05/10/2004 9:32 EST us Lolly Oliveira MD MICROBIOLOGY - GENERAL ORDERABL ES Final Result [facility] [address] [place] [address] * CYTOPATHOLOGY (05/02/2004 0:00 EST) Pathology Report: CYTOPATHOLOGY REPORT Reports generated via electronic interface contain original data; however they are lacking the format of the original report. Caution should be taken when reading/interpreti ng unformatted reports. Name: ? JING ALVARENGA ? Accession #: ? [id number] : ? 1950 (Age: 53) ??F ?Collect [...] ORDERABLES Final Resu lt Performing Organization Address City/State/[facility] Co de Phone Number [facility] [address] [place] [address] documented in this encounter Visit Diagnoses Not on filedocumented in this encounter Care Teams Stakes Player Relationship Specialty Start Date End Date Lolly Oliveira MD [address] [place] [address] PCP - General 11/13/08 documented as of this encounter
--- OUTSIDE RECORDS SUMMARY | 2024-01-26 10:51 | XMS_ITS | Encounter Summary ---
Author Organization [facility] [place] [address] Care Team Providers Care Town Clerk Name Role Phone Lolly Oliveira MD Primary Care Provider [phone] Encounter Details Date Type Department Care Team [...] AM EST Hospital Encounter Non-[place]vasive [place] [address] Arrived documented as of this encounter Visit Diagnoses Not on filedocumented in this encounter Care Teams Town Clerk Relationship Specialty Start Date End Date Lolly Oliveira MD [address] [place] [address] PCP - General 07/17/13 documented as of this encounter
--- OUTSIDE RECORDS SUMMARY | 2024-01-26 10:51 | XMS_ITS | Encounter Summary ---
Author Organization [facility] [place] [address] Care Team Providers Care Engine Manager Name Role Phone Lolly Oliveira MD Primary Care Provider [phone] Encounter Details Date Type Department Care Team (Late st Contact Info) Description 03/15/2023 Telephone Cardiology at [address] [phone] Saranya Ma Social History Tobacco Use Types [...] to have an echo done at [facility] prior to her appt withtxm there on 05/12/23. Message sent to Dr. Mcmahon asking him to put order in if he would like her to have this done. Saranya Ma Sr. Clinical Procedure Extension Course Counselor/Roll Inspector documented in this encounter Plan of Treatment Upcoming Encounters Date Type Department Care Team (Late st Contact Info) Description 04/15/2024 10:00 AM EST Hospital Encounter [place] [address] Arrived documented as of this encounter Visit Diagnoses Not on filedocumented in this encounter Care Teams Engine Manager Relationship Specialty Start Date End Date Lolly Oliveira MD [address] [place] [address] PCP - General 07/17/13 documented as of this encounter
--- OUTSIDE RECORDS SUMMARY | 2024-01-26 10:51 | XMS_ITS | Encounter Summary ---
Author Organization [facility] [place] [address] Care Team Providers Care Engineering Patternmaker Name Role Phone Lolly Oliveira MD Primary Care Provider [phone] Encounter Details Date Type Department Care Team (Late st Contact Info) Description 11/16/2022 Telephone Cardiology at [address] [phone] Luna Rousseau, RN Social History Tobacco Use [...] BP today was 118/57 at [facility] at [facility]. Pt is going twice a week [...] [facility] Hospital Encounter Non-[place] [address] Arrived documented as of this encounter Visit Diagnoses Not on filedocumented in this encounter Care Teams Engineering Patternmaker Relationship Specialty Start Date End Date Lolly Oliveira MD [address] [place] [address] PCP - General 07/17/13 documented as of this encounter
--- OUTSIDE RECORDS SUMMARY | 2024-01-26 10:51 | XMS_ITS | Referral Summary ---
Author Organization [facility] Address [address] [place] [address] Care Team Providers Care Vacuum Cleaner Repair Person Name Role Phone Lolly Oliveira MD Primary Care Provider [phone] Social History Tobacco Use Types Packs/Day Years Used Date Smoking Tobacco: Never Assessed Comments Unknown Sex and Gender Information Value Date Recorded Sex Assigned at Not on file Legal Sex Female 18:31 EST Gender Identity Not on file Sexual Orientation Not on file Plan of Treatment Not on file Insurance [facility] MEDICARE Care Teams Vacuum Cleaner Repair Person Relationship Specialty Start Date End Date Lolly Oliveira MD [address] [place] [address] PCP - General 11/13/08
--- OUTSIDE RECORDS SUMMARY | 2024-01-26 10:51 | XMS_ITS | Encounter Summary ---
Author Organization [facility] Address [address] [place] [address] Care Team Providers Care Hardboard Press Operator Name Role Phone Lolly Oliveira MD Primary Care Provider [phone] Encounter Details Date Type Department Care Team (Late st Contact Info) Description 11/13/2020 Lab Requisition [facility] Pathology & Laboratory Medicine - [address] [address] Outr Resulting Lab, Provider Social History Tobacco [...] MICROBIOLOGY - GENER AL ORDERABLES Final Result [facility] [address] [place] [address] * COVID-19 TESTING (11/13/2020 7:30 EDT) COVID-19 rt-PCR Result Negative Negative 11/14/2020 11:46 EDT [facility] Comment: This test [...] performed using the med SARS-CoV-2 assay ([employer] on the Med 6800 System Performing Lab Med [address] [facility] Lab 11/14/2020 11:46 EDT [facility] Swab 11/13/2020 7:30 EDT 11/13/2020 20:57 EDT us Provider Outr Resulting Lab MICROBIOLOGY - GENER AL ORDERABLES Final Result Performing Organization Address [facility] Co de Phone Number [facility] [address] [place] [address] documented in this encounter Visit Diagnoses Not on filedocumented in this encounter Care Teams Hardboard Press Operator Relationship Specialty Start Date End Date Lolly Oliveira MD [address] [place] [address] PCP - General 11/13/08 documented as of this encounter
--- OUTSIDE RECORDS SUMMARY | 2024-01-26 10:51 | XMS_ITS | Encounter Summary ---
Author Organization [facility] [place] [address] Care Team Providers Care Mortgage Loan Funder Name Role Phone Lolly Oliveira MD Primary Care Provider [phone] Encounter Details Date Type Department Care Team (Latest Contact Info) Description 01/16/2024 10:00 AM EST - 01/16/2024 11:59 PM EST Hospital Encounter Non-[place] [address] Discharge Disposition: Home Social History Tobacco Use [...] with spacer fluticasone propionate (Flonase) 50 mcg/actuation [place], Suspension 1 spray by Each Nare route daily as needed. documented as of this encounter Plan of Treatment Upcoming Encounters Date Type Department Care Team (Late st Contact Info) Description 04/15/2024 10:00 AM EST Hospital Encounter Non-[place]vasive [place] [phone] Arrived documented as of this encounter Procedures [...] filedocumented in this encounter Care Teams Mortgage Loan Funder Relationship Specialty Start Date End Date Lolly Oliveira MD [address] [place] [address] PCP - General 07/17/13 documented as of this encounter
--- OUTSIDE RECORDS SUMMARY | 2024-01-26 10:51 | XMS_ITS | Encounter Summary ---
Author Organization [facility] Address [address] [place] [address] Care Team Providers Care Lithographer Helper Name Role Phone Lolly Oliveira MD Primary Care Provider [phone] Encounter Details Date Type Department Care Team (Late st Contact Info) Description 05/27/2021 Lab Requisition [facility] Pathology & Laboratory Medicine - [address] [address] Iman Moran, DO [address] [place], [place] [id number] Encounter for other general examination Social History [...] explore management options, if applicable. 05/30/2021 13:31 [facility] Final Diagnosis A. COLON, [...] 13:31 [facility] Performing Lab [facility] 05/30/2021 13:31 [facility] Scanned Images 05/30/2021 13:31 [facility] Tissue ENTIRE COLON / Unknown 05/27/2021 11:23 EDT 05/27/2021 16:33 EDT us Iman Moran DO PATHOLOGY ORDERABLES Final Re sult [facility] [address] [place] [address] documented in this encounter Visit Diagnoses Diagnosis Encounter for other general examination documented in this encounter Care Teams Lithographer Helper Relationship Specialty Start Date End Date Lolly Oliveira MD [address] [place] [address] PCP - General 11/13/08 documented as of this encounter
--- OUTSIDE RECORDS SUMMARY | 2024-01-26 10:51 | XMS_ITS | Encounter Summary ---
Author Organization [facility] [place] [address] Care Team Providers Care Senior Director Marketing Name Role Phone Lolly Oliveira MD Primary Care Provider [phone] Encounter Details Date Type Department Care Team (Late st Contact Info) Description 03/17/2023 Telephone Cardiology at [address] [phone] Saranya Ma Social History Tobacco Use Types [...] AM EST Echo order fax[facility] to [facility] at [phone]. No Prior auth needed. Ref #:[id number]. Saranya Ma Sr. Clinical Procedure [place]/Commercial Property Manager documented in this encounter Plan of Treatment Upcoming Encounters Date Type Department Care Team (Late st Contact Info) Description 04/15/2024 10:00 AM [facility] Hospital Encounter [place] [address] Arrived documented as of this encounter Visit Diagnoses Not on filedocumented in this encounter Care Teams Senior Director Marketing Relationship Specialty Start Date End Date Lolly Oliveira MD [address] [place] [address] PCP - General 07/17/13 documented as of this encounter
--- OUTSIDE RECORDS SUMMARY | 2024-01-26 10:51 | XMS_ITS | Encounter Summary ---
Author Organization [facility] [place] [address] Care Team Providers Care Radio Message Router Name Role Phone Lolly Oliveira MD Primary Care Provider [phone] Encounter Details Date Type Department Care Team (Latest Contact Info) Description 04/21/2023 10:00 AM EST - 04/21/2023 11:59 PM EST Hospital Encounter [place] [address] Discharge Disposition: Home Social History Tobacco Use [...] with spacer fluticasone propionate (Flonase) 50 mcg/actuation [place], Suspension 1 spray by Each Nare route [...] AM EST Hospital Encounter Non-[place] [address] Arrived documented as of this [...] filedocumented in this encounter Care Teams Radio Message Router Relationship Specialty Start Date End Date Lolly Oliveira MD [address] [place] [address] PCP - General 07/17/13 documented as of this encounter
--- OUTSIDE RECORDS SUMMARY | 2024-01-26 10:51 | XMS_ITS | Encounter Summary ---
Author Organization [facility] Address [address] [place] [address] Care Team Providers Care Prison Keeper Name Role Phone Lolly Oliveira MD Primary Care Provider [phone] Encounter Details Date Type Department Care Team (Late st Contact Info) Description 03/06/2003 Results Only [facility] [place] [facility] conversion [address] [place] [address] Lolly Oliveira MD [address] [place], [place] [phone] Social History Tobacco Use Types Packs/Day Years [...] ORDERABLES Final Resu lt [facility] [address] [place] [address] documented in this encounter Visit Diagnoses Not on filedocumented in this encounter Care Teams Prison Keeper Relationship Specialty Start Date End Date Lolly Oliveira MD [address] [place] [address] PCP - General 11/13/08 documented as of this encounter
--- OUTSIDE RECORDS SUMMARY | 2024-01-26 10:51 | XMS_ITS | Encounter Summary ---
Author Organization [facility] Address [facility] [place] [address] Care Team Providers Care Pear Picker Name Role Phone Lolly Oliveira MD Primary Care Provider [phone] Encounter Details Date Type Department Care Team (Late st Contact Info) Description 03/15/2023 Orders Only Cardiology at [address] [address] Lalit Mcmahon MD [facility] [place] [address] Nonischemic cardiomyopathy; Biventricular ICD (implantable cardioverter-defibrill ator) [...] AM EST Hospital Encounter Non-Invasive [place] [address] Arrived documented as of this encounter Visit Diagnoses Diagnosis Nonischemic cardiomyopathy Other primary cardiomyopathies Biventricular ICD (implantable cardioverter-defibrillator) in place documented in this encounter Care Teams Pear Picker Relationship Specialty Start Date End Date Lolly Oliveira MD [address] [place] [address] PCP - General 07/17/13 documented as of this encounter
--- OUTSIDE RECORDS SUMMARY | 2024-01-26 10:51 | XMS_ITS | Encounter Summary ---
Author Organization [facility] Address [address] [place] [address] Care Team Providers Care Ela Teacher Name Role Phone Lolly Oliveira MD Primary Care Provider [phone] Encounter Details Date Type Department Care Team (Late st Contact Info) Description 02/20/2020 Lab Requisition [facility] Pathology & Laboratory Medicine - [address] [address] Outr Resulting Lab, Provider Social History Tobacco [...] GENER AL ORDERABLES Final Result [facility] [place], [place] * COVID-19 TESTING (02/19/2020 16:30 EST) COVID-19 rt-PCR Result NEGATIVE Negative 02/22/2020 23:41 EST [facility] Comment: 2019-novel Coronavirus (2019-nCoV) not [...] [facility] 02/22/2020 23:41 EST [facility] Swab 02/19/2020 16:3 0 EST 02/20/2020 16:09 EST us Provider Outr Resulting Lab MICROBIOLOGY - GENER AL ORDERABLES Final Result [facility] [address] [place] [address] [facility] [place], [place] documented in this encounter Visit Diagnoses Not on filedocumented in this encounter Care Teams Ela Teacher Relationship Specialty Start Date End Date Lolly Oliveira MD [address] [place] [address] PCP - General 11/13/08 documented as of this encounter
--- OUTSIDE RECORDS SUMMARY | 2024-01-26 10:51 | XMS_ITS | Encounter Summary ---
Author Organization [facility] Address [address] [place] [address] Care Team Providers Care Financial Adviser Name Role Phone Lolly Oliveira MD Primary Care Provider Encounter Details Date Type Department Care Team (Late st Contact Info) Description 04/12/2007 Results Only [facility] conversion [address] [place] [address] Lolly Oliveira MD [address] [place], [place] [id number] Social History Tobacco Use Types Packs/Day Years [...] ? JING ALVARENGA ? Accession #: ? [id number] : ? 1950 (Age: 56) ??F ?Collect Date: ? 04/12/2007 Location: ? [facility] ? Receive Date: ? 04/13/2007 Provider: ?LOLLY OLIVEIRA MD Copy to: ? Specimen/Source: ?ThinPrep Pap Test, Cervix/Endocervix, processed on [employer] ThinPrep Imaging System, with manual evaluation Last [...] ORDERABLES Final Resu lt [facility] [address] [place] [address] documented in this encounter Visit Diagnoses Not on filedocumented in this encounter Care Teams Financial Adviser Relationship Specialty Start Date End Date Lolly Oliveira MD [address] [place] [address] PCP - General 11/13/08 documented as of this encounter
--- OUTSIDE RECORDS SUMMARY | 2024-01-26 10:51 | XMS_ITS | Clinical Summary ---
Author Organization [facility] Address [address] [place] [address] Care Team Providers Care Sugar Mill Worker Name Role Phone Lolly Oliveira MD [...] 08/10/2023 COVID-19 Vaccine (2023- season) 2023 Insurance [facility] MEDIC[facility] Care Teams Sugar Mill Worker Relationship Specialty Start Date End Date Berrian, Lolly, MD [address] [place] [address] PCP - General 11/13/08
--- OUTSIDE RECORDS SUMMARY | 2024-01-26 10:51 | XMS_ITS | Encounter Summary ---
Author Organization [facility] [place] [address] Care Team Providers Care Residential Pest Control Technician Name Role Phone Lolly Oliveira MD Primary Care Provider [phone] Encounter Details Date Type Department Care Team (Latest Contact Info) Description 07/20/2023 10:00 AM EDT - 07/20/2023 11:59 PM EDT Hospital Encounter [place] [address] Discharge Disposition: Home Social History Tobacco Use [...] with spacer fluticasone propionate (Flonase) 50 mcg/actuation [place], Suspension 1 spray by Each Nare route daily as needed. documented as of this encounter Plan of Treatment Upcoming Encounters Date Type Department Care Team (Late st Contact Info) Description 04/15/2024 10:00 AM EST Hospital Encounter [place] [address] Arrived documented as of this encounter Procedures [...] on filedocumented in this encounter Care Teams Residential Pest Control Technician Relationship Specialty Start Date End Date Lolly Oliveira MD [address] [place] [address] PCP - General 07/17/13 documented as of this encounter
--- OUTSIDE RECORDS SUMMARY | 2024-01-26 10:51 | XMS_ITS | Encounter Summary ---
Author Organization [facility] Address [address] [place] [address] Care Team Providers Care Banking Services Advisor Name Role Phone Lolly Oliveira MD Primary Care Provider [phone] Encounter Details Date Type Department Care Team (Late st Contact Info) Description 04/25/2009 Orders Only [facility] - [facility] ([facility] [address] [place], [place] [phone] Lolly Oliveira MD [address] [place], [place] [phone] Social History Tobacco Use Types Packs/Day Years [...] ? JING ALVARENGA ? Accession #: ? [id number] ? : ? 1950 (Age: 58) ??F [...] ORDERABLES Final Resu lt Performing Organization Address [facility]/State/ZIP Co de Phone Number [facility] [address] [place] [address] documented in this encounter Visit Diagnoses Not on filedocumented in this encounter Care Teams Banking Services Advisor Relationship Specialty Start Date End Date Lolly Oliveira MD [address] [place] [address] PCP - General 11/13/08 documented as of this encounter
--- OUTSIDE RECORDS SUMMARY | 2024-01-26 10:51 | XMS_ITS | Encounter Summary ---
Author Organization [facility] [place] [address] Care Team Providers Care Green Chain Off Bearer Name Role Phone Lolly Oliveira MD Primary Care Provider [phone] Encounter Details Date Type Department Care Team (Late st Contact Info) Description 05/18/2023 Telephone Dermatology at [address] [address] Nora Meredith LPN Social [...] st Contact Info) Description 04/15/2024 10:[address] [facility] Hospital Encounter [place] [address] Arrived documented as of this encounter Visit Diagnoses Not on filedocumented in this encounter Care Teams Green Chain Off Bearer Relationship Specialty Start Date End Date Lolly Oliveira MD [address] [place] [address] PCP - General 07/17/13 documented as of this encounter
--- OUTSIDE RECORDS SUMMARY | 2024-01-26 10:51 | XMS_ITS | Encounter Summary ---
Author Organization [facility] Address [facility] [place] [address] Care Team Providers Care Repair Welder Name Role Phone Lolly Oliveira MD Primary Care Provider [phone] Encounter Details Date Type Department Care Team (Late st Contact Info) Description 05/03/2023 Telephone Cardiology at [address] [phone] Lalit Mcmahon MD [facility] [place] [address] Social History Tobacco Use Types Packs/Day Years Used Date Smoking Tobacco: Never Alcohol Use Standard Drinks/Week Comments Not Currently 0 (1 standard drink = 0.6 oz pur e alcohol) [facility] Inpatient Questions Answer Date Recorded Does [...] AM EST Hospital Encounter Non-Invasive [place] [address] Arrived documented as of this encounter Visit Diagnoses Not on filedocumented in this encounter Care Teams Repair Welder Relationship Specialty Start Date End Date Lolly Oliveira MD [address] [place] [address] PCP - General 07/17/13 documented as of this encounter
--- OUTSIDE RECORDS SUMMARY | 2024-01-26 10:51 | XMS_ITS | Encounter Summary ---
Author Organization [facility] Address [address] [place] [address] Care Team Providers Care Preprint Analyst Name Role Phone Lolly Oliveira MD Primary Care Provider [phone] Encounter Details Date Type Department Care Team (Late st Contact Info) Description 06/16/2012 Results Only [facility] Laboratory Services - [facility] ([facility]) [address] [place], [place] [id number] Lolly Oliveira MD [address] [place], [place] [id number] Social History Tobacco Use Types Packs/Day Years [...] ? JING ALVARENGA ? Accession #: ? [id number] : ? 1950 (Age: 61) ??F ?Collect [...] ORDERABLES Final Resu lt [facility] [address] [place] [address] documented in this encounter Visit Diagnoses Not on filedocumented in this encounter Care Teams Preprint Analyst Relationship Specialty Start Date End Date Lolly Oliveira MD [address] [place] [address] PCP - General 11/13/08 documented as of this encounter
--- OUTSIDE RECORDS SUMMARY | 2024-01-26 10:51 | XMS_ITS | Encounter Summary ---
Author Organization [facility] Address [address] [place] [address] Care Team Providers Care Content Administrator Name Role Phone Unavailable Primary Care Provider Unavailabl e Encounter Details Date Type Department Care Team (Late st Contact Info) Description 11/07/2008 Orders Only [facility] Laboratory Services - [facility] ([facility]) [address] [place] [address] Kenneth Parker MD [address] [place] [address] Social History Tobacco Use Types Packs/Day Years [...] ? JIGN ALVARENGA ? Accession #: ? [id number] ? : ? 1950 (Age: 58) ??F [...] ORDERABLES Final Resu lt [facility] [address] [place] [address] documented in this encounter Visit Diagnoses Not on filedocumented in this encounter
--- OUTSIDE RECORDS SUMMARY | 2024-01-26 10:51 | XMS_ITS | Encounter Summary ---
Author Organization [facility] [place] [address] Care Team Providers Care Dope Worker Name Role Phone Lolly Oliveira MD Primary Care Provider [phone] Encounter Details Date Type Department Care Team (Latest Contact Info) Description 10/18/2023 10:00 AM EDT - 10/18/2023 11:59 PM EDT Hospital Encounter [place] [address] Discharge Disposition: Home Social History Tobacco Use [...] with spacer fluticasone propionate (Flonase) 50 mcg/actuation [place], Suspension 1 spray by Each Nare route daily as needed. documented as of this encounter Plan of Treatment Upcoming Encounters Date Type Department Care Team (Late st Contact Info) Description 04/15/2024 10:00 AM EST Hospital Encounter Non[place] [address] Arrived documented as of this encounter Procedures [...] on filedocumented in this encounter Care Teams Dope Worker Relationship Specialty Start Date End Date Lolly Oliveira MD [address] [place] [address] PCP - General 07/17/13 documented as of this encounter
--- OUTSIDE RECORDS SUMMARY | 2024-01-26 10:51 | XMS_ITS | Encounter Summary ---
Author Organization [facility] Address [address] [place] [address] Care Team Providers Care Regional Psychiatric Director Name Role Phone Lolly Oliveira MD Primary Care Provider [phone] Encounter Details Date Type Department Care Team (Late st Contact Info) Description 02/11/2021 Lab Requisition [facility] Pathology & Laboratory Medicine - [address] [id number] Outr Resulting Lab, Provider Social History Tobacco [...] MICROBIOLOGY - GENER AL ORDERABLES Final Result [facility] [address] [place] [address] * COVID-19 TESTING (02/11/2021 8:00 EST) COVID-19 rt-PCR Result Negative Negative 02/12/2021 14:17 EST [facility] Comment: This test has [...] performed using the med SARS-CoV-2 assay ([employer] on the Med 6800 System Performing Lab Med [address] [facility] Lab 02/12/2021 14:17 EST [facility] Swab 02/11/2021 8:00 EST 02/11/2021 22:22 EST us Provider Outr Resulting Lab MICROBIOLOGY - GENER AL ORDERABLES Final Result [facility] [address] [place] [address] documented in this encounter Visit Diagnoses Not on filedocumented in this encounter Care Teams Regional Psychiatric Director Relationship Specialty Start Date End Date Lolly Oliveira MD [address] [place] [address] PCP - General 11/13/08 documented as of this encounter
--- OUTSIDE RECORDS SUMMARY | 2024-01-26 10:51 | XMS_ITS | Encounter Summary ---
Author Organization [facility] Address [address] [place] [address] Care Team Providers Care Territory Service Representative Name Role Phone Lolly Oliveira MD Primary Care Provider [phone] Encounter Details Date Type Department Care Team (Late st Contact Info) Description 04/01/2005 Results Only [facility] conversion [address] [place] [address] Blair Dukes MD [address] [place] [id number] Social History Tobacco Use Types Packs/Day Years [...] ? JING ALVARENGA ? Accession #: ? [id number] ? : ? 1950 (Age: 54) ??F [...] ? Received in Hollande' s fixative labelled [place] and #1 ??terminal ileum bx is a single 0.3 x 0.2 x 0.2 cm tissue, submitted intact as (A). Received in Hollande' s fixative labelled [place] and #2 ??transverse colon bx is a single 0.2 x 0.2 x 0.2 cm tissue, submitted intact as (B). ??(Dr. Lechuga)/[facility] End of Report [facility] 04/01/2005 04/02/2005 15: 24 EST us Blair Dukes MD PATHOLOGY ORDERABLES Final Resul t [facility] [address] [place] [address] documented in this encounter Visit Diagnoses Not on filedocumented in this encounter Care Teams Territory Service Representative Relationship Specialty Start Date End Date Lolly Oliveira MD [address] [place] [address] PCP - General 11/13/08 documented as of this encounter
--- OUTSIDE RECORDS SUMMARY | 2024-01-26 10:51 | XMS_ITS | Encounter Summary ---
Author Organization [facility] Address [facility] [place] [address] Care Team Providers Care Packing House Laborer Name Role Phone Lolly Oliveira MD Primary Care Provider [phone] Encounter Details Date Type Department Care Team (Late st Contact Info) Description 11/11/2022 Orders Only Cardiology at [address] [phone] Lalit Mcmahon MD [facility] [place] [address] Nonischemic cardiomyopathy Social History Tobacco Use Types [...] [facility] Hospital Encounter [place] [address] Arrived documented as of this encounter Visit Diagnoses Diagnosis Nonischemic cardiomyopathy Other primary cardiomyopathies documented in this encounter Care Teams Packing House Laborer Relationship Specialty Start Date End Date Berrian, Lolly M, MD [address] [place] [address] PCP - General 07/17/13 documented as of this encounter
--- OUTSIDE RECORDS SUMMARY | 2024-01-26 10:51 | XMS_ITS | Encounter Summary ---
Author Organization [facility] Address [address] [place] [address] Care Team Providers Care Dietary Worker Name Role Phone Lolly Oliveira MD Primary Care Provider [phone] Encounter Details Date Type Department Care Team (Late st Contact Info) Description 03/21/2019 Lab Requisition [facility] Pathology & Laboratory Medicine - [address] [address] Unknown, Provider, Social History Tobacco Use Types [...] & BLOOD GAS ORDERA BLES Final Result [facility] [address] [place] [address] documented in this encounter Visit Diagnoses Not on filedocumented in this encounter Care Teams Dietary Worker Relationship Specialty Start Date End Date Lolly Oliveira MD [address] [place] [address] PCP - General 11/13/08 documented as of this encounter
--- OUTSIDE RECORDS SUMMARY | 2024-01-26 10:51 | XMS_ITS | Encounter Summary ---
Author Organization [facility] Address [facility] [place] [address] Care Team Providers Care Etcher Enameling Name Role Phone Lolly Oliveira MD Primary Care Provider [phone] Encounter Details Date Type Department Care Team (Late st Contact Info) Description 01/29/2023 Notes Only Cardiology at [address] [address] Merle Lin PA [facility] [place] [address] Social History Tobacco Use Types Packs/Day Years [...] pdf document Date of transmission: 01/29/2023 Device burial vault deliverer and installer: BSI Device type: TOP WADDY-D Presenting rhythm: /RVP/LVP AP 21% Right FLOOR WAXER 100% Left FLOOR WAXER: 100% Battery: 10.5 years Heart[employer]ic Index rising in setting of increasing S3 intensity, increasing respiratory rate, increasing night heart rate, and increasing mean heart rate. MICKEY Villa 01/29/2023 9:06 AM documented in this encounter Plan of Treatment Upcoming Encounters Date Type Department Care Team (Late st Contact Info) Description 04/15/2024 10:00 AM EST Hospital Encounter Non-[place] [address] Arrived documented as of this encounter Visit Diagnoses Not on filedocumented in this encounter Care Teams Etcher Enameling Relationship Specialty Start Date End Date Lolly Oliveira MD [address] [place] [address] PCP - General 07/17/13 documented as of this encounter
--- OUTSIDE RECORDS SUMMARY | 2024-01-26 10:51 | XMS_ITS | Clinical Summary ---
Author Organization [facility] [place] [address] Care Team Providers Care Locomotive Mechanic Name Role Phone oLlly Oliveira MD Primary Care Provider Allergies Active [...] spacer Active fluticasone propionate (Flonase) 50 mcg/actuation [place], Suspension [...] PM EST Hospital Encounter [place] [address] Discharge Disposition: Home from Last [...] AM EST Hospital Encounter [place] [address] Arrived Health Maintenance Due Date Last Done Comments CT Colonography 1950 Colonoscopy 1950 Colorectal Cancer Screening 1950 FIT DNA 1950 FIT 1950 Sigmoidoscopy (10 year) with FIT yearly 1950 Sigmoidoscopy 1950 Hepatitis C Screening 1966 Tetanus/Diphtheria/Pertussis Vaccines (1 - Tdap) 08/09 Zoster vaccine (1 of 2) 1998 Advance Directive 08/10/2003 Bone Density Scan 2013 Pneumoccocal Vaccine: 65+ (1 of 1 - PCV) 2013 RSV Vaccine (1 - 1-dose 75+ series) 08/10/2023 Covid-19 Vaccine (1 - season) 2023 Influenza (Flu) vaccine (1 o f 1 - Influenza standard series) 11/07/2023 Medical Devices Implanted Type Area Scoring Machine Operator Device Identifier Shelf Expiration Date Model / Serial / Lot Bsx: [id number]: 763194-0/18/2 023 Implanted: by Lalit Mcmahon MD (Quantity not on file) Defibrillator Chest Wall [employer] [id number] / [id number] / Bsx: [id number]: 786841-4/18/2 023 Implanted: by Lalit Mcmahon MD (Quantity not on file) Lead Heart [employer] 4674 / [id number] / Bsx: [id number]: [id number] Implanted: by Lalit Mcmahon MD (Quantity not on file) Lead Heart [employer] 7841 / [id number] / Bsx: 0672: 173384-6/18/2 023 Implanted: by Lalit Mcmahon MD (Quantity not on file) Lead Heart [employer] 0672 / [id number] / Procedures Procedure Name Priority Date/Time Associated [...] Status decision made by: Patient Care Teams Locomotive Mechanic Relationship Specialty Start Date End Date Lolly Oliveira MD [address] [place] [address] PCP - General 07/17/13
--- OUTSIDE RECORDS SUMMARY | 2024-01-26 10:52 | XMS_ITS | Encounter Summary ---
Author [place] [address] Care Team Providers Care Rawhide Trimmer Name Role Phone Lolly Oliveira MD Primary Care Provider [phone] Encounter Details Date Type Department Care Team (Late st Contact Info) Description 07/17/2013 [place] [phone] Lolly Oliveira MD [address] [place], [place] [id number] Social History Tobacco Use Types Packs/Day Years [...] AM EST Hospital Encounter [place] [address] Arrived documented as of this encounter Procedures Procedure Name Priority Date/Time Associated Diagnosis Comments REQUEST FOR 2ND READ MAMMO Routine 07/17/2013 8:45 AM EDT documented in this encounter Results * Request for 2nd read Mammo (07/17/2013 8:45 AM EDT) Anatomical Region Laterality Modality Other 07/17/2013 8:45 AM EDT Narrative 07/17/2013 3:57 PM EDT INTERPRETATION OF OUTSIDE MAMMOGRAMS (PERFORMED ON 07/06/13 AND 07/14/13) FROM [facility] DATED 07/17/13: ?? DIAGNOSTIC IMAGING SUMMARY: [...] OUTSIDE MAMMOGRAMS (PERFORMED ON 07/06/13 AND 07/14/13) [facility] DATED 07/17/13: DIAGNOSTIC IMAGING SUMMARY: RIGHT [...] on filedocumented in this encounter Care Teams Rawhide Trimmer Relationship Specialty Start Date End Date Lolly Oliveira MD [address] [place] [address] PCP - General 07/17/13 documented as of this encounter
--- OUTSIDE RECORDS SUMMARY | 2024-01-26 10:52 | XMS_ITS | Encounter Summary ---
Author Organization [facility] [place] [address] Care Team Providers Care Brewery Technician Name Role Phone Lolly Oliveira MD Primary Care Provider [phone] Encounter Details Date Type Department Care Team (Late st Contact Info) Description 10/09/2021 Telephone Dermatology at [address] [address] Nora Meredith LPN Social History [...] st Contact Info) Description 04/15/2024 10:00 AM [facility] Hospital Encounter Non[place] [address] Arrived documented as of this encounter Visit Diagnoses Not on filedocumented in this encounter Care Teams Brewery Technician Relationship Specialty Start Date End Date Lolly Oliveira MD [address] [place] [address] PCP - General 07/17/13 documented as of this encounter
--- OUTSIDE RECORDS SUMMARY | 2024-01-26 10:52 | XMS_ITS | Encounter Summary ---
Author Organization [facility] [place] [address] Care Team Providers Care Community Relations Advisor Name Role Phone Lolly Oliveira MD Primary Care Provider Encounter Details Date Type Department Care Team (Late st Contact Info) Description 06/29/2011 Orders [place] [phone] Eleno Christian MD [facility] [place] [address] Social History Tobacco Use Types Packs/Day Years [...] AM EST Hospital Encounter Non-[place] [address] Arrived documented as of this encounter Procedures [...] Non-reportable exam Eleno Christian MD [facility] FILM [facility]RARY ORD ERABLES documented in this encounter Visit Diagnoses Not on filedocumented in this encounter Care Teams Community Relations Advisor Relationship Specialty Start Date End Date Lolly Oliveira MD [address] [place] [address] PCP - General 07/17/13 documented as of this encounter
--- OUTSIDE RECORDS SUMMARY | 2024-01-26 10:52 | XMS_ITS | Encounter Summary ---
[place] [address] Care Team Providers Care Media Liaison Officer Name Role Phone Lolly Oliveira MD Primary Care Provider [phone] Encounter Details Date Type Department Care Team [...] AM EST Hospital Encounter Non[place] [address] Arrived documented as of this encounter Visit Diagnoses Not on filedocumented in this encounter Care Teams Media Liaison Officer Relationship Specialty Start Date End Date Lolly Oliveira MD [address] [place] [address] PCP - General 07/17/13 documented as of this encounter
--- OUTSIDE RECORDS SUMMARY | 2024-01-26 10:52 | XMS_ITS | Encounter Summary ---
Author Organization [facility] [place] [address] Care Team Providers Care Security Associate Name Role Phone Unavailable Primary Care Provider Unavailabl e Encounter Details Date Type Department Care Team (Late st Contact Info) Description 07/14/2013 External Results XRay at [address] [place] [address] Provider, Scanning Social History Tobacco Use Types [...] Hospital Encounter Non-Invasive Cardiology Lab [facility] [place] [address] Arrived documented as of this encounter Procedures [...]
--- OUTSIDE RECORDS SUMMARY | 2024-01-26 10:52 | XMS_ITS | Encounter Summary ---
Author Organization [facility] [place] [address] Care Team Providers Care Committee Member Name Role Phone Lolly Oliveira MD Primary Care Provider [phone] Reason for Visit * Reason Onset Date Comments Pre Procedure Call 07/01/2022 Encounter Details Date Type Department Care Team (Late st Contact Info) Description 07/01/2022 Telephone Cardiology at [address] [phone] Rosenda Sutton RN Pre Procedure Call Social History Tobacco Use Types Packs/Day Years Used Date Smoking Tobacco: Never Sex and Gender Information Value Date Recorded Sex Assigned at Not on file Gender Identity Not on file Sexual Orientation Not on file documented as of this encounter Miscellaneous Notes * Telephone Encounter - Rosenda Sutton RN - 07/01/2022 9:30 AM EDTSummary: Pre Procedure Call: PUNCHER implant EP ACOUSTIC INTELLIGENCE SPECIALIST COORDINATION CHECKLIST Patient Name: Luna Mott Patient Performing Administrative Job Titles: Lalit Mcmahon Referring Provider: Lolly Oliveira Date of Procedure: 07/23/22 Arrival Time/ Case Time: 12:00 pm / 1:00 pm Check In Location: Lap Layer Desk 4W Date Patient was Called: 07/01/22 Procedure: PUNCHER Company: [employer] Type: PUNCHER-D Laterality: LEFT Orders: Yes Lab Orders: Yes [...] overnight , understands that they will need front end driver on day of discharge Notified pt that Goff catheter may be placed on day of procedure depending on type & duration of case. documented in this encounter Plan of Treatment Upcoming Encounters Date Type Department Care Team (Late st Contact Info) Description 04/15/2024 10:00 AM [facility] Hospital Encounter Non-[place]vasive [place] [address] Arrived documented as of this encounter Visit Diagnoses Not on filedocumented in this encounter Care Teams Committee Member Relationship Specialty Start Date End Date Lolly Oliveira MD [address] [place] [address] PCP - General 07/17/13 documented as of this encounter
--- OUTSIDE RECORDS SUMMARY | 2024-01-26 10:52 | XMS_ITS | Encounter Summary ---
[place] [address] Care Team Providers Care Manager Actuarial Name Role Phone Lolly Oliveira MD Primary Care Provider [phone] Encounter Details Date Type Department Care Team (Latest Contact Info) Description 07/26/2013 9:45 AM EDT - 07/26/2013 11:59 PM EDT Hospital En[place] [address] Mammographic microcalcification Social History Tobacco Use Types [...] Hospital Encounter Non[place] [address] Arrived documented as of this encounter Procedures [...] Name: ?? JING ALVARENGA ? Acc #: ?[id number] ?Pt. ? Col Date: ?? 07/26/2013 ? [...] Name: ?? JING ALVARENGA ? Acc #: ?[id number] ?Pt. ? Col Date: ?? 07/26/2013 ? [...] FCD, adenosis, DCIS 07/28/2013 8:29 AM EDT [facility] BREAST STRUCTURE / Unknown 07/26/2013 12:12 PM EDT 07/26/2013 12:12 PM EDT Eleno Christian MD PATHOLOGY/CYTOLOGY O RDERABLES Performing Organization Address City/State/[facility] Co ar Phone Number [facility] [place] [address] * Mammo Specimen Imaging During Biopsy (07/26/2013 [...] documented in this encounter Care Teams Manager Actuarial Relationship Specialty Start Date End Date Lolly Oliveira MD [address] [place] [address] PCP - General 07/17/13 documented as of this encounter
--- OUTSIDE RECORDS SUMMARY | 2024-01-26 10:52 | XMS_ITS | Encounter Summary ---
Author Organization [facility] [place] [address] Care Team Providers Care Diesel Inspector Name Role Phone Lolly Oliveira MD Primary Care Provider [phone] Reason for Referral * Diagnostic Test (Routine) - Closed Specialty Diagnoses / Procedures Referred By Contac t Referred To Contact Radiology Diagnoses Left bundle branch block Nonischemic cardiomyopathy Procedures MRI Cardiac Morphology Function With Flow Velocity Quantification wwo Contrast MRI Cardiac Morphology Function wwo Contrast Lalit Mcmahon MD [facility] [place] [address] [place] [address] Referral ID Status Reason Start Date Expiration Date V isits Requested Visits Authorized [id number] Closed Specialty Service Requested 05/06/2022 11/07/2023 2 1 Encounter Details Date Type Department Care Team (Late st Contact Info) Description 05/06/2022 Orders Only Cardiology at [address] [address] Lalit Mcmahon MD [facility] [place] [address] Left bundle branch block; Nonischemic cardiomyopathy Social [...] AM EST Hospital Encounter Non-Invasive [place] [address] Arrived documented as of this encounter Results [...] questions please contact the health resident care provider that requested your imaging first. [...] have questions please contactthe health resident care provider that requested your imaging first. Lalit Mcmahon MD IMG MRI ORDERABLES documented in this encounter Visit Diagnoses Diagnosis Left bundle branch block Other left bundle branch block Nonischemic cardiomyopathy Other primary cardiomyopathies Left bundle branch block Other left bundle branch block Nonischemic cardiomyopathy Other primary cardiomyopathies documented in this encounter Care Teams Diesel Inspector Relationship Specialty Start Date End Date Lolly Oliveira MD [address] [place] [address] PCP - General 07/17/13 documented as of this encounter
--- OUTSIDE RECORDS SUMMARY | 2024-01-26 10:52 | XMS_ITS | Encounter Summary ---
Author Organization [facility] [place] [address] Care Team Providers Care Accounts Specialist Name Role Phone Lolly Oliveira MD Primary Care Provider [phone] Reason for Referral * Diagnostic Test (Routine) - Closed Specialty Diagnoses / Procedures Referred By Contac t Referred To Contact Radiology Diagnoses Left bundle branch block Nonischemic cardiomyopathy Procedures MRI Cardiac Morphology Function With Flow Velocity Quantification [facility] Contrast MRI Cardiac Morphology Function wwo Contrast Lalit Mcmahon MD [facility] [place] [address] [place] [address] Referral ID Status Reason Start Date Expiration Date V isits Requested Visits Authorized [id number] Closed Specialty Service Requested 05/06/2022 11/07/2023 2 1 Reason for Visit * Diagnostic Test (Routine) - Closed Specialty Diagnoses / Procedures Referred By Contac t Referred To Contact Radiology Diagnoses Left bundle branch block Nonischemic cardiomyopathy Procedures MRI Cardiac Morphology Function With Flow Velocity Quantification o Contrast MRI Cardiac Morphology Function wwo Contrast Lalit Mcmahon MD [facility] [place] [address] [place] [address] Referral ID Status Reason Start Date Expiration Date V isits Requested Visits Authorized [id number] Closed Specialty Service Requested 05/06/2022 11/07/2023 2 1 Encounter Details Date Type Department Care Team (Latest Contact Info) Description 07/14/2022 9:08 AM EDT Hospital Encounter MRI at [facility] [place] [id number] Lalit Mcmahon MD [facility] [address] [place] [address] Left bundle branch block; Nonischemic cardiomyopathy Discharge [...] 71 y.o. : 1950 [address] [facility] [address] Female [phone] (home) No relevant phone numbers on file. Lolly Oliveira MD None Allergies Allergen Reactions ??? Sulfa (Sulfonamide Antibiotics) Date/Time of call: July 07, 2022/11:03 AM/ PREVIOUS MRI SCAN? HEIGHT: WEIGHT: SCHEDULED SCAN: MRI CARDIAC MORPHOLOGY FUNCTION WITH FLOW VELOCITY QUANTIFICATION WWO CONTRAST [[id number]] Order Questions Answers Where will study be performed? [facility] Radiology [120] SUBJECTIVE: Very Claustrophobic CAN YOU [...] K[place] ) You must have a driver license examiner present when you check in. This patient has been informed that they require a driver license examiner to drive them home after this procedure. In the absence of a driver license examiner, IR will not be able to sedate for your scan. Pt verbalized understanding of these instructions during the pre-procedure education via phone. Yes Name of driver license examiner: Daughter Phone number: PRIOR SCAN DATE/S SEDATION TYPE SUCCESSFUL 07/14/22 MRI Cardiac Morphology Function with Flow Velocity Quantification wwo Contrast Ativan 1mg x 1 dose Pass Revised 08/03/17 documented in this encounter Plan of Treatment Upcoming Encounters Date Type Department Care Team (Late st Contact Info) Description 04/15/2024 10:00 AM [facility] Hospital Encounter Non-[place]vasive [place] [address] Arrived documented as of this encounter Procedures [...] who have questions please contact the health intensive care anaesthetist that requested your imaging first. ? Electronically signed by: Greyson Herron MD, [facility] ([phone]), at 07/15/2022 9:53 AM Narrative 07/15/2022 9:53 [...] patients who have questions please contactthe health intensive care anaesthetist that requested your imaging first. Lalit Mcmahon [...] mg documented in this encounter Care Teams Accounts Specialist Relationship Specialty Start Date End Date Lolly Oliveira MD [address] [place] [address] PCP - General 07/17/13 documented as of this encounter
--- OUTSIDE RECORDS SUMMARY | 2024-01-26 10:52 | XMS_ITS | Encounter Summary ---
Author Organization [facility] [place] [address] Care Team Providers Care Veterinary Virologist Name Role Phone Lolly Oliveira MD Primary Care Provider Encounter Details Date Type Department Care Team (Late st Contact Info) Description 07/26/2013 [place] [phone] Eleno Christian MD [facility] [place] [address] Social History Tobacco Use Types Packs/Day Years [...] AM EST Hospital Encounter Non-Invasive [place] [address] Arrived documented as of this encounter Visit Diagnoses Not on filedocumented in this encounter Care Teams Veterinary Virologist Relationship Specialty Start Date End Date Lolly Oliveira MD [address] [place] [address] PCP - General 07/17/13 documented as of this encounter
--- OUTSIDE RECORDS SUMMARY | 2024-01-26 10:52 | XMS_ITS | Encounter Summary ---
Author Organization [facility] [address] Care Team Providers Care Machinist Wood Name Role Phone Lolly Oliveira MD Primary Care Provider [phone] Reason for Visit * Auth/Cert (Routine) Specialty Diagnoses / Procedures Referred By Contac t Referred To Contact Diagnoses Left bundle-branch block, unspecified Other cardiomyopathies Left bundle branch block [I44.7]Nonischemic cardiomyopathy [I42.8] Procedures PRG CATH PLMT LEFT HEART CATH & ARTS W/INJ & ANGIO IMG S&I ELECTROPHYSIOLOGY PROCEDURE Lalit Mcmahon MD [facility] [place] [address] [facility] Referral ID Status Reason Start Date Expiration Date Visits Re quested Visits Authorized [id number] 1 1 Encounter Details Date Type Department Care Team (Late st Contact Info) Description 07/23/2022 1:00 PM EDT - 07/23/2022 5:30 PM EDT Surgery [place] [address] Lalit Mcmahon MD [facility] [place] [address] ELECTROPHYSIOLOGY PROCEDURE Social History Tobacco Use Types Packs/Day Years Used Date Smoking Tobacco: Never Tobacco Cessation:Counseling Given: Not Answered Alcohol Use Standard Drinks/Week Comments Not Currently 0 (1 standard drink = 0.6 oz pur e alcohol) [facility] Inpatient Questions Answer Date Recorded Does Anyone [...] Luna Mott Patient Age: 71 y.o. Language: Spanish Race: White Ethnicity: Not nor Admit date: 07/23/2022 Discharge date and time: 07/24/22 Attending Physician: Lalit Mcmahon MD Discharge Physician: Lalit Mcmahon MD Follow-up Recommendations for Providers: - s/p COMMUNICATIONS SUPERINTENDENT-D implant - post implant QRS 130 ms [...] Nevus ??? Solar lentigo Operations/Major Procedures: 07/23/22: [facility] COMMUNICATIONS SUPERINTENDENT-D implant History of Presentation: 71 y.o. female with a history of HFrEF, LBBB, QRS >150, NYHA II who is POD#1 of COMMUNICATIONS SUPERINTENDENT-D implant ([employer]). Hospital Course: Elective admission for COMMUNICATIONS SUPERINTENDENT-D implant Admitted post-implant for pain management, telemetry [...] (heart failure with reduced ejection fraction) [I50.20] COMMUNICATIONS SUPERINTENDENT-D implant Admission Condition: good Indication for Admission: [...] g Refills: 3 fluticasone propionate 50 mcg/actuation [place], Suspension Commonly known as: Flonase 1 spray [...] incision. Make sure to use a cloth dyer (such as a towel) in between the [...] F. The office scheduling phone number is [phone]. ARM MOVEMENT RESTRICTIONS POST-IMPLANT - Do not [...] please call the Cardiac ElectrophysiologyTriage Nurse at [phone], option 3. General Instructions None Discharge References/Attachments [...] incision. Make sure to use a cloth dyer (such as a towel) in between the [...] F. The office scheduling phone number is [phone]. ARM MOVEMENT RESTRICTIONS POST-IMPLANT - Do not [...] please call the Cardiac ElectrophysiologyTriage Nurse at [phone], option 3. documented in this encounter Medications [...] with spacer fluticasone propionate (Flonase) 50 mcg/actuation [place], Suspension 1 spray by Each Nare route [...] as of this encounter Progress Notes * Llait Mcmahon MD - 07/24/2022 8:43 AM EDT Cardiac Electrophysiology Post-Implant Device Interrogation Luna Mott [id number] 07/24/2022 History: Luna Mott is a 71 y.o. female with a history of HFrEF, LBBB, QRS >150, NYHA II who is POD#1 of COMMUNICATIONS SUPERINTENDENT-D implant ([employer]). Overall feels well this morning. Ready [...] WOB Neuro- A&Ox3 Device Interrogation: Data ?? Medical Supply Technician Model # Serial # Generator [employer] [id number] Atrial Lead [employer] 7841 [id number] RV Lead [employer] 0672 [id number] LV Lead [employer] [id number] ?? Diagnostics Pacing Mode: DDD 60-130 Underlying Rhythm: [place] Atrial Episodes: None Ventricular Episodes: None FINAL PROGRAMMING: Pacing: Mode Lower rate (ppm) Upper rate (ppm) ?? DDD 60 130 VF: Rate (bpm) #Antitachycardia pacing First shock energy (J) ?? 200 Quick convert 41 VT: 170 Monitor only Monitor only ? Battery and Leads Impedances (ohms) Sensing (mV) Thresholds HV RA RV LV RA RV LV RA RV LV 73 [phone] (LVa) 7.7 13.1 >25 0.4V @ 0.4 ms 0.4V @ 0.4 ms 0.5 V @ 1.0 ms POD#1 CXR: All leads in nominal positioning Impression: 71 y.o. female who is s/p COMMUNICATIONS SUPERINTENDENT-D implant for LBBB, NYHA II, HFrEF. - [...] [facility]) Fadi Nunez MD 07/24/2022 Pager: [phone] I met with the patient today and [...] agreement. ? Dr. Lalit Mcmahon, electrophysiology attending ([id number]) * Zaria Wright RN - 07/23/2022 8:28 [...] HF, QRS > 150 ms presents for COMMUNICATIONS SUPERINTENDENT-D placement. ROS: Denies recent fevers or chills [...] 0.9) flush 5 mL 5 mL Intravenous [id number] ramos MD ??? sodium chloride 0.9 % [...] HF, QRS > 150 ms presents for COMMUNICATIONS SUPERINTENDENT-D placement. Backup would be LBBAP lead. Antibiotics: cefazolin Rationales for, intended benefits and potential risk of planned procedures reviewed. The patient indicated understanding and agreement with the plan. Informed consent signed. Procedure checklist completed. Fadi Nunez MD Cardiac Electrophysiology Fellow [facility] Pager [phone] 07/23/2022 I met with the patient today [...] agreement. ? Dr. Lalit Mcmahon, electrophysiology attending ([id number]) documented in this encounter Miscellaneous Notes * Brief Op Note - Lalit Mcmahon MD - 07/23/2022 4:04 PM EDT Brief Operative Note Patient Name: Luna Mott : [id number] MR#: [id number] Case Date: 07/23/2022 Surgeon: Surgeon(s) and Role: [...] AM EST Hospital Encounter Non-Invasive [place] [address] Arrived Scheduled Orders Name Type Priority Associated Diagnoses Orde r Schedule EKG 12 Lead ECG Routine Cardiac resynchronization therapy defibrillator (COMMUNICATIONS SUPERINTENDENT-D) in place One Time for 1 Occurrences [...] (Bezet) 522 ms MUSE SYSTEM Calculated R Ramona 78 degrees MUSE SYSTEM Calculated T Ramona -71 degrees MUSE SYSTEM INTERPRETATION AV dual-paced [...] have questions please contact the health career technical education instructor that requested your imaging first. ? Electronically signed by: Kwame Vargas MD, [facility] ([phone]), at 07/24/2022 6:43 AM Narrative 07/24/2022 6:43 [...] who have questions please contactthe health career technical education instructor that requested your imaging first. Electronically signed by: Kwame Vargas MD, [facility]([phone]), at 07/24/2022 6:43 AM Lalit Mcmahon MD IMG DX ORDERABLES * ELECTROPHYSIOLOGY PROCEDURE (07/23/2022 1:11 PM EDT) Anatomical Region Laterality Modality Other Narrative 07/23/2022 4:24 PM EDT Table formatting from the original result was not included. BIVENTRICULAR ICD IMPLANTATION Hydraulic Engineer: Lalit Mcmahon MD Fellow: Fadi Nunez MD [...] lateral branch of the CS in the NEPALI view. This branch was cannulated with a [...] the entire procedure. LEAD AND GENERATOR DATA: Medical Supply Technician Model # Serial # Generator [employer] [id number] Atrial Lead [employer] 7841 [id number] RV Lead [employer] 0672 [id number] LV Lead [employer] [id number] [id number] PACE/SENSE DATA: Sensed wave (mV) Threshold (V) [...] (cGycm2) 300 CONCLUSIONS: Successful implantation of a [employer] biventricular ICD for primary prevention and treatment of symptoms related to congestive heart failure. Follow up in EP clinic in 1-2 months. Procedures performed: new ICD system ( cpt 82471-P9); implant LV lead at time of ICD insertion (cpt 56635) I have read, edited and approve of this report: Lalit Mcmahon MD [facility] Cardiac Electrophysiology 07/23/2022 4:22 PM Procedure Note Lalit Mcmahon MD - 07/23/2022 BIVENTRICULAR ICD IMPLANTATION Hydraulic Engineer: Lalit Mcmahon MD Fellow: Fadi Nunez MD [...] appropriate lateralbranch of the CS in the NEPALI view. This branch was cannulated with a [...] in the entireprocedure. LEAD AND GENERATOR DATA: Medical Supply Technician Model # Serial # Generator [employer] [id number] Atrial Lead [employer] 7841 [id number] RV Lead [employer] 0672 857429 LV Lead [employer] 4674 [id number] PACE/SENSE DATA: Sensed wave (mV) Threshold (V) [...] (cGycm2) 300 CONCLUSIONS: Successful implantation of a [employer] biventricular ICD forprimary prevention and treatment of symptoms related to congestive heartfailure. Follow up in EP clinic in 1-2 months. Procedures performed: new ICD system ( cpt 18248-W6); implant LV lead attime of ICD insertion (cpt 63398) I have read, edited and approve of this report: Lalit Mcmahon MD S Cardiac Electrophysiology 07/23/2022 4:22 PM Lalit Mcmahon MD EP PROCEDURE ORDERAB LES * POCT Glucose (07/23/2022 12:54 PM EDT) [facility] Signature Glucose, POC 83 65 - 199 mg/dL [facility] Comment: Supplemental ranges: <140 mg/dL before meals <180 mg/dL all other times of the day Blood 07/23/2022 12:5 4 PM EDT 07/23/2022 12:54 PM EDT Lalit Mcmahon MD POINT OF CARE TEST O RDERABLES Performing Organization Address City/[facility]/ZIP Co de Phone Number [facility] [place] [address] * EKG 12 Lead (07/23/2022 12:33 PM EDT) Ventricular rate 72 BPM MUSE SYSTEM Atrial Rate 72 BPM MUSE SYSTEM P-R Interval 158 ms MUSE SYSTEM QRS Duration 176 ms MUSE SYSTEM Q-T Interval 458 ms MUSE SYSTEM QTC Calculated (Bezet) 501 ms MUSE SYSTEM Calculated P Ramona 34 degrees MUSE SYSTEM Calculated R Ramona 12 degrees MUSE SYSTEM Calculated T Ramona -173 degrees MUSE SYSTEM INTERPRETATION Normal sinus rhythm Left bundle branch block Abnormal ECG No previous ECGs available Confirmed by MD Salome, Lalit ([id number]) on 07/23/2022 1:19:03 PM MUSE SYSTEM 07/23/2022 12:3 3 PM EDT 07/23/2022 1:19 PM EDT Lalit Mcmahon MD ECG ORDERABLES Performing Organization Address [facility]/ZIP Co de Phone Number MUSE SYSTEM * Differential, Automated (07/23/2022 11:55 AM EDT) Neutrophil % 62.6 % [facility] Neutrophil Absolute 4.14 1.70 - 6.10 x10(3)/[facility] Lymph % 27.0 % [facility] Lymphocytes Abs 1.8 0.9 - 3.2 x10(3)/[facility] Monocyte % 7.3 % [facility] Monocyte Abs 0.5 0.3 - 0.9 x10(3)/[facility] Eos % 2.3 % [facility] Eosinophils Abs 0.2 0.0 - 0.4 x10(3)/[facility] Basophil % 0.6 % [facility] Baso Absolute 0.0 0.0 - 0.1 x10(3)/[facility] Immature Gran % 0.20 % [facility] Comment: Immature granulocytes(IG's)percentage and absolute count will include metamyelocytes, myelocytes, and promyelocytes. Blood smears from CBCs yielding IG's will be scanned manually for concordance. If this scan disagrees with the automated IG or if promyelocytes are noted, a manual differential will be performed. Immature Gran Absolute 0.01 0.00 - 0.04 x10(3)/[facility] Blood 07/23/2022 11:5 5 AM EDT 07/23/2022 12:07 PM EDT Narrative Resulting Agency Comment Spec In Lab Lalit Mcmahon MD HEMATOLOGY ORDERABLE S [facility] [place] [address] * Hemogram (07/23/2022 11:55 AM EDT) White Blood Cell 6.6 4.0 - 9.5 x10(3)/[facility] Red Blood Cell 4.50 4.00 - 5.21 x10(6)/[facility] Hemoglobin 13.7 11.7 - 15.5 g/dL [facility] Hematocrit 42.5 35.7 - 45.8 % [facility] Mean Cell Volume 94.4 82.6 - 94.4 fL [facility] Mean Cell Hemoglobin 30.4 27.1 - 32.0 pg [facility] Mean Cell Hemoglobin Concentration 32.2 31.7 - 35.0 g/dL [facility] Platelet 193 145 - 357 x10(3)/[facility] RDW Standard Deviation 45.5 37.0 - 46.0 fL [facility] RDW coefficient of variation 13.2 11.5 - 14.1 % [facility] Mean Platelet Volume 9.5 7.6 - 12.9 fL [facility] NRBC% auto 0.0 % [facility] NRBC Absolute 0.000 0.000 - 0.000 x10(3)/[facility] Blood 07/23/2022 11:5 5 AM EDT 07/23/2022 12:07 PM EDT Narrative Resulting Agency Comment Spec In Lab Lalit Mcmahon MD HEMATOLOGY ORDERABLE S [facility] [place] [address] * (ABNORMAL) BMP w/fasting Glucose (07/23/2022 11:55 AM EDT) Glucose Fasting 110(H) 65 - 99 mg/dL [facility] Comment: ?Fasting* Glucose Interpretive [...] of Diabetes Mellitus, Position Statement from the [place] [employer]. ??Diabetes Care, Volume 33, Supplement 1, Mar 2009 Blood Urea Nitrogen 23(H) 8 - 18 mg/dL [facility] Creatinine 1.07 0.70 - 1.20 mg/dL [facility] Sodium 141 135 - 145 mmol/L [facility] Potassium 4.8 3.5 - 5.0 mmol/L [facility] Comment: Please note: ??Patients with WBC >100,000 may have falsely elevated Potassium levels. ??For accurate Potassium quantification in these patients send serum separator tube (gold top) for subsequent determinations. ??Contact the Clinical Chemistry Laboratory if there are any questions. Chloride 106 98 - 107 mmol/L [facility] Carbon Dioxide 26 22 - 31 mmol/L [facility] Anion Gap 9 5 - 15 mmol/L [facility] Calcium 9.7 8.5 - 10.5 mg/dL [facility] Est Glomerular Filtration Rate 55(L) >=60 mL/min/1. 73 m?? [facility] Comment: This patient's [...] Mcmahon MD CHEMISTRY ORDERABLES Performing Organization Address [facility] Co de Phone Number [facility] [place] [address] * Prothrombin Time (07/23/2022 11:55 AM EDT) Prothrombin Time 11.7 9.4 - 12.5 sec [facility] International Normalization Ratio 1.0 [facility] Comment: An INR <2.0 [...] MD HEMATOLOGY ORDERABLE S Performing Organization Address City/[facility] Co de Phone Number [facility] [place] [address] documented in this encounter Visit Diagnoses Diagnosis HFrEF (heart failure with reduced ejection fraction)- Primary Left bundle branch block Other left bundle branch block Nonischemic cardiomyopathy Other primary cardiomyopathies Cardiac resynchronization therapy defibrillator (COMMUNICATIONS SUPERINTENDENT-D) in place Left bundle branch block Other [...] Serrano CRNA)1553 (Stopped - Provider: Maria Elena Srerano CRNA) PRN Medication Order 07/22/2022 07/23/2022 07/24/2022 [...] Routine documented in this encounter Care Teams Machinist Wood Relationship Specialty Start Date End Date Lolly Oliveira MD [address] [place] [address] PCP - General 07/17/13 documented as of this encounter
--- OUTSIDE RECORDS SUMMARY | 2024-01-26 10:52 | XMS_ITS | Encounter Summary ---
Author Organization [facility] [place] [address] Care Team Providers Care Laborer Shipyard Name Role Phone Lolly Oliveira MD Primary Care Provider [phone] Encounter Details Date Type Department Care Team (Late Contact Info) Description 01/14/2022 Telephone Dermatology at [address] [address] Nora Meredith LPN Social History [...] EST Hospital Encounter Non-Invasive [place] [address] Arrived documented as of this encounter Visit Diagnoses Not on filedocumented in this encounter Care Teams Laborer Shipyard Relationship Specialty Start Date End Date Lolly Oliveira MD [address] [place] [address] PCP - General 07/17/13 documented as of this encounter
--- OUTSIDE RECORDS SUMMARY | 2024-01-26 10:52 | XMS_ITS | Encounter Summary ---
Author Organization [facility] [place] [address] Care Team Providers Care Pet Supplies Salesperson Name Role Phone Lolly Oliveira MD Primary Care Provider [phone] Encounter Details Date Type Department Care Team (Late st Contact Info) Description 04/01/2021 3:30 PM EST Office Visit Dermatology at [address] [id number] Clay Ramírez MD [address], [place] [address] Psoriasis, guttate Social History Tobacco Use Types [...] skin examination. She referred today by Elena aRymond NP and Lolly Oliveira MD. apparently in [...] Hospital Encounter Non-[place] [address] Arrived documented as of this encounter Visit Diagnoses Diagnosis Psoriasis, guttate Other psoriasis documented in this encounter Care Teams Pet Supplies Salesperson Relationship Specialty Start Date End Date Lolly Oliveira MD [address] [place] [address] PCP - General 07/17/13 documented as of this encounter
--- OUTSIDE RECORDS SUMMARY | 2024-01-26 10:52 | XMS_ITS | Encounter Summary ---
Author Organization [facility] [place] [address] Care Team Providers Care Chemical Educator Name Role Phone Lolly Oliveira MD Primary Care Provider [phone] Encounter Details Date Type Department Care Team (Latest Contact Info) Description 07/17/2013 8:40 AM EDT - 07/17/2013 11:59 PM EDT Hospital Encounter XRay at [address] [place] [address] [address], [facility] Discharge Disposition: Home Social [...] AM EST Hospital Encounter Non-[place] [address] Arrived documented as of this encounter Visit Diagnoses Not on filedocumented in this encounter Care Teams Chemical Educator Relationship Specialty Start Date End Date Lolly Oliveira MD [address] [place] [address] PCP - General 07/17/13 documented as of this encounter
--- OUTSIDE RECORDS SUMMARY | 2024-01-26 10:52 | XMS_ITS | Encounter Summary ---
[place] [address] Care Team Providers Care Catering Truck Driver Name Role Phone Lolly Oliveira MD Primary Care Provider [phone] Encounter Details Date Type Department Care Team [...] EST Hospital Encounter Non-Invasive [place] [address] Arrived documented as of this encounter Visit Diagnoses Not on filedocumented in this encounter Care Teams Catering Truck Driver Relationship Specialty Start Date End Date Lolly Oliveira MD [address] [place] [address] PCP - General 07/17/13 documented as of this encounter
--- OUTSIDE RECORDS SUMMARY | 2024-01-26 10:52 | XMS_ITS | Encounter Summary ---
Author Organization [facility] [place] [address] Care Team Providers Care Cook Dessert Name Role Phone Lolly Oliveira MD Primary Care Provider [phone] Reason for Visit * Reason Comments Follow-up Encounter Details Date Type Department Care Team (Late st Contact Info) Description 06/06/2021 8:45 AM EDT Office Visit Dermatology at [address] [address] Clay Ramírez MD [address] [facility] [place] [address] Psoriasis, guttate Social History Tobacco Use Types [...] AM EST Hospital Encounter Non-[place] [address] Arrived documented as of this encounter Visit Diagnoses Diagnosis Psoriasis, guttate Other psoriasis documented in this encounter Care Teams Cook Dessert Relationship Specialty Start Date End Date Lolly Oliveira MD [address] [place] [address] PCP - General 07/17/13 documented as of this encounter
--- OUTSIDE RECORDS SUMMARY | 2024-01-26 10:52 | XMS_ITS | Encounter Summary ---
Author Organization [place] [address] Care Team Providers Care Silk Screener Name Role Phone Lolly Oliveira MD Primary Care Provider [phone] Encounter Details Date Type Department Care Team (Latest Contact Info) Description 10/23/2022 10:00 AM EDT - 10/23/2022 11:59 PM EDT Hospital Encounter Non[place] [address] Discharge Disposition: Home Social History Tobacco Use [...] with spacer fluticasone propionate (Flonase) 50 mcg/actuation [place], Suspension 1 spray by Each Nare route [...] Hospital Encounter Non-[place] [address] Arrived documented as of this [...] on filedocumented in this encounter Care Teams Silk Screener Relationship Specialty Start Date End Date Lolly Oliveira MD [address] [place] [address] PCP - General 07/17/13 documented as of this encounter
--- OUTSIDE RECORDS SUMMARY | 2024-01-26 10:52 | XMS_ITS | Encounter Summary ---
Author Organization [facility] [place] [address] Care Team Providers Care Social Sciences Professor Name Role Phone Lolly Oliveira MD Primary Care Provider [phone] Reason for Referral * Consultation (Routine) - Closed Specialty Diagnoses / Procedures Referred By Contact Referred To Contact Electrophysiology / Cardiology Diagnoses Left bundle branch block Cardiomyopathy, unspecified type AT MINIMUM PT NEEDS CONSIDERATION FOR DEFIBRILLATOR, ALSO CANDIDATE FOR RESYNCHRONIZATION THERAPY HER QRS IS >0.16 Lolly Oliveira MD [address] [place] [address] [facility] [address] [place] [id number] Referral ID Status Reason Start Date Expiration Date V isits Requested Visits Authorized [id number] Closed Consult, Test & Treat PCP Updated and/or Approved 04/30/2022 04/30/2023 6 6 Encounter Details Date Type Department Care Team (Latest Contact Info) Description 04/30/2022 Transcribe Orders eDH Incoming Referrals [phone] Lolly Oliveira MD [address] [place], [place] [phone] Left bundle branch block; Cardiomyopathy, unspecified type [...] AM EST Hospital Encounter Non-[place] [address] Arrived Scheduled Referrals Name Type Priority Associated Diagnoses Orde r Schedule Referral to Cardiology Outpatient Referral Routine Left bundle branch block Cardiomyopathy, Unspecified Type Ordered: 04/30/2022 documented as of this encounter Visit Diagnoses Diagnosis Left bundle branch block Other left bundle branch block Cardiomyopathy, unspecified type documented in this encounter Care Teams Social Sciences Professor Relationship Specialty Start Date End Date Lolly Oliveira MD [address] [place] [address] PCP - General 07/17/13 documented as of this encounter
--- OUTSIDE RECORDS SUMMARY | 2024-01-26 10:52 | XMS_ITS | Encounter Summary ---
Author Organization [facility] [place] [address] Care Team Providers Care Top Executive Name Role Phone Lolly Oliveira MD Primary Care Provider [phone] Reason for Visit * Reason Comments Skin Check Encounter Details Date Type Department Care Team (Late st Contact Info) Description 11/23/2014 10:00 AM EDT Office Visit Dermatology at [address] [address] Clay Ramírez MD [address] [facility] [place] [address] Dermatofibroma; Nevus; Solar lentigo Discharge Disposition: Home [...] [place] Hospital Encounter [place] [address] Arrived documented as of this encounter Visit Diagnoses Diagnosis Dermatofibroma Benign neoplasm of skin, site unspecified Nevus Benign neoplasm of skin, site unspecified Solar lentigo Other dyschromia documented in this encounter Care Teams Top Executive Relationship Specialty Start Date End Date Lolly Oliveira MD [address] [place] [address] PCP - General 07/17/13 documented as of this encounter
--- OUTSIDE RECORDS SUMMARY | 2024-01-26 10:52 | XMS_ITS | Encounter Summary ---
Author Organization [facility] [place] [address] Care Team Providers Care Cloth Grader Name Role Phone Lolly Oliveira MD Primary Care Provider [phone] Reason for Visit * Reason Comments Follow-up Encounter Details Date Type Department Care Team (Late st Contact Info) Description 07/02/2022 8:00 AM EDT Office Visit Dermatology at [address] [phone] Clay Ramírez MD [address] [facility], [place] [address] Psoriasis, guttate Social History Tobacco Use Types [...] [facility] Hospital Encounter Non[place] [address] Arrived documented as of this encounter Visit Diagnoses Diagnosis Psoriasis, guttate Other psoriasis documented in this encounter Care Teams Cloth Grader Relationship Specialty Start Date End Date Lolly Oliveira MD [address] [place] [address] PCP - General 07/17/13 documented as of this encounter
--- OUTSIDE RECORDS SUMMARY | 2024-01-26 10:52 | XMS_ITS | Encounter Summary ---
Author Organization [facility] [place] [address] Care Team Providers Care Surgical Attendant Name Role Phone Lolly Oliveira MD Primary Care Provider [phone] Encounter Details Date Type Department Care Team (Latest Contact Info) Description 07/26/2013 9:45 AM EDT - 07/26/2013 11:59 PM EDT Hospital En[place] [address] Mammographic microcalcification Social History Tobacco Use Types [...] AM EST Hospital Encounter Non-[place] [address] Arrived documented as of this encounter Procedures [...] microcalcification documented in this encounter Care Teams Surgical Attendant Relationship Specialty Start Date End Date Lolly Oliveira MD [address] [place] [address] PCP - General 07/17/13 documented as of this encounter
--- OUTSIDE RECORDS SUMMARY | 2024-01-26 10:52 | XMS_ITS | Encounter Summary ---
Author Organization [facility] [place] [address] Care Team Providers Care Dental Scheduler Name Role Phone Lolly Oliveira MD Primary Care Provider [phone] Encounter Details Date Type Department Care Team (Latest Contact Info) Description 07/26/2013 9:44 AM EDT - 07/26/2013 11:59 PM EDT Hospital Encounter [place] [address] CLINIC, Lolly So MD [address] [place], [place] [phone] Mammographic microcalcification Discharge Disposition: Home Social History [...] AM EST Hospital Encounter [place] [address] Arrived documented as of this encounter Procedures [...] are present on specimen digital X-ray. A RF Biocidics-Stereo 13 Cylinder marker clip was placed. Cranio-caudal [...] mLs documented in this encounter Care Teams Dental Scheduler Relationship Specialty Start Date End Date Lolly Oliveira MD [address] [place] [address] PCP - General 07/17/13 documented as of this encounter
--- OUTSIDE RECORDS SUMMARY | 2024-01-26 10:52 | XMS_ITS | Encounter Summary ---
Author Organization [facility] [place] [address] Care Team Providers Care Agricultural Labor Camp Manager Name Role Phone Lolly Oliveira MD Primary Care Provider [phone] Reason for Visit * Reason Comments Follow-up Encounter Details Date Type Department Care Team (Late st Contact Info) Description 05/21/2022 8:00 AM EDT Office Visit Dermatology at [address] [phone] Clay Ramírez MD [address] [facility] [place] [address] Psoriasis, guttate Social History Tobacco Use Types [...] [facility] Hospital Encounter Non-[place] [address] Arrived documented as of this encounter Visit Diagnoses Diagnosis Psoriasis, guttate Other psoriasis documented in this encounter Care Teams Agricultural Labor Camp Manager Relationship Specialty Start Date End Date Lolly Oliveira MD [address] [place] [address] PCP - General 07/17/13 documented as of this encounter
--- OUTSIDE RECORDS SUMMARY | 2024-01-26 10:52 | XMS_ITS | Encounter Summary ---
[place] [address] Care Team Providers Care Corporate Risk Analyst Name Role Phone Lolly Oliveira MD Primary Care Provider [phone] Encounter Details Date Type Department Care Team (Late st Contact Info) Description 04/09/2022 Refill Dermatology at [address] [address] Nora Meredith, ASSISTED LIVING MANAGER Social History Tobacco Use Types Packs/Day Years [...] [facility] Hospital Encounter Non-Invasive [place] [address] Arrived documented as of this encounter Visit Diagnoses Not on filedocumented in this encounter Care Teams Corporate Risk Analyst Relationship Specialty Start Date End Date Lolly Oliveira MD [address] [place] [address] PCP - General 07/17/13 documented as of this encounter
--- OUTSIDE RECORDS SUMMARY | 2024-01-26 10:52 | XMS_ITS | Encounter Summary ---
Author Organization [facility] [place] [address] Care Team Providers Care Assistant Librarian Name Role Phone Lolly Oliveira MD Primary Care Provider [phone] Encounter Details Date Type Department Care Team (Latest Contact Info) Description 07/18/2013 [place] [phone] Alia Fraire MD [facility] [place] [address] Mammographic microcalcification (Primary Dx) Social History Tobacco [...] AM EST Hospital Encounter Non-Invasive [place] [address] Arrived documented as of this encounter Results [...] are present on specimen digital X-ray. A Fashion To Figurerk Eviva-Stereo 13 Cylinder marker clip was placed. [...] calcifications are present on specimendigital X-ray. A Fashion To Figurerk Eviva-Stereo 13 Cylinder marker clip was placed. [...] does not layer and, therefore, are not branch sales and service representative of milk of calcium. Again, [...] does not layer and, therefore, are not branch sales and service representative of milk of calcium. Again, these have an amorphous andpunctate appearance and remain indeterminate. Stereotactic guided biopsy isrecommended. Alia Fraire MD IMG MAMMO ORDERABLES documented in this encounter Visit Diagnoses Diagnosis Mammographic microcalcification- Primary Mammographic microcalcification Mammographic microcalcification Mammographic microcalcification Mammographic microcalcification documented in this encounter Care Teams Assistant Librarian Relationship Specialty Start Date End Date Lolly Oliveira MD [address] [place] [address] PCP - General 07/17/13 documented as of this encounter
--- OUTSIDE RECORDS SUMMARY | 2024-01-26 10:52 | XMS_ITS | Encounter Summary ---
Author Organization [facility] Address [facility] [place] [address] Care Team Providers Care Underwater Photographer Name Role Phone Lolly Oliveira MD Primary Care Provider [phone] Encounter Details Date Type Department Care Team (Late st Contact Info) Description 07/16/2022 Telephone Cardiology at [address] [phone] Lalit Mcmahon MD [facility] [place] [address] Social History Tobacco Use Types Packs/Day Years [...] her nonischemic cardiomyopathy. She is scheduled for RETAIL SEASONAL SPECIALIST-D implantation next week and looks forward to the procedure. We will see each other next week. Lalit Mcmahon MD [facility] Cardiac Electrophysiology 07/16/2022 8:52 AM documented in this encounter Plan of Treatment Upcoming Encounters Date Type Department Care Team (Late st Contact Info) Description 04/15/2024 10:00 AM EST Hospital Encounter Non-[place] [address] Arrived documented as of this encounter Visit Diagnoses Not on filedocumented in this encounter Care Teams Underwater Photographer Relationship Specialty Start Date End Date Lolly Oliveira MD [address] [place] [address] PCP - General 07/17/13 documented as of this encounter
--- OUTSIDE RECORDS SUMMARY | 2024-01-26 10:52 | XMS_ITS | Encounter Summary ---
Author Organization [facility] Address [facility] [place] [address] Care Team Providers Care Case Management Specialist Name Role Phone Lolly Oliveira MD Primary Care Provider [phone] Reason for Visit * Auth/Cert (Routine) Specialty Diagnoses / Procedures Referred By Contac t Referred To Contact Diagnoses Left bundle-branch block, unspecified Other cardiomyopathies Left bundle branch block [I44.7]Nonischemic cardiomyopathy [I42.8] Procedures PRG CATH PLMT LEFT HEART CATH & ARTS W/INJ & ANGIO IMG S&I ELECTROPHYSIOLOGY PROCEDURE Lalit Mcmahon MD [facility] [address] [facility] Referral ID Status Reason Start Date Expiration Date Visits Re quested Visits Authorized [id number] 1 1 Encounter Details Date Type Department Care Team (Late st Contact Info) Description 07/23/2022 1:08 PM EDT Anesthesia Event [place] [address] Monae Gonzalez MD [facility] [place] [address] Maria Elena Snyder CRNA [facility] [place] [address] Anesthesia Record Procedure Summary Procedure Name Responsible [...] 1307; median cubital vein (antecubital fossa), right; xqtw-gnq-thmjyj catheter system; Anatomical Landmarks; 20 gauge; 07/24/22; [...] 1343; metacarpal vein (top of hand), left; dedn-jxe-hqymab catheter system; Anatomical Landmarks; US Not Used; [...] [facility] A-LAB ROOM 3 / [facility] EP LABS Anesthesia Start: 1308 Anesthesia Stop: 1633 Procedure: ELECTROPHYSIOLOGY PROCEDURE (Left) Diagnosis: Left bundle branch block Nonischemic cardiomyopathy (Left bundle branch block [I44.7]Nonischemic cardiomyopathy [I42.8]) Providers: Lalit Mcmahon MD Responsible Provider: Monae Gonzalez MD Anesthesia Type: general ASA Status: 4 All Anesthesia Providers: Anesthesiologist: Monae Gonzalez MD; Dominique Sen MD CASH TELLER: Maria Elena Snyder CRNA Vitals Value Taken Time BP 131/46 07/23/22 1700 Temp 36.7 ??C (98.1 ??F) 07/23/22 1627 Pulse 67 07/23/22 1703 Resp 14 07/23/22 1703 SpO2 98 % 07/23/22 1703 Pain Level Vitals shown include unvalidated device data. Patient Location: PACU/[facility] Level of Consciousness: Conscious but Sleepy [...] and Nonischemic CM (EF 15-20%)who presents for COMMUNICATIONS SCIENTIST-D. No prior anesthetic records. Pt states that [...] daughter/son and patient who. Plan discussed with CASH TELLER. Anesthesia Screening documented in this encounter Plan of Treatment Upcoming Encounters Date Type Department Care Team (Late st Contact Info) Description 04/15/2024 10:00 AM [facility] Hospital Encounter Non-In[place] [address] Arrived documented as of this [...] documented in this encounter Care Teams Case Management Specialist Relationship Specialty Start Date End Date Lolly Oliveira MD [address] [place] [address] PCP - General 07/17/13 documented as of this encounter
--- OUTSIDE RECORDS SUMMARY | 2024-01-26 10:52 | XMS_ITS | Encounter Summary ---
[place] [address] Care Team Providers Care Sales Service Route Manager Name Role Phone Lolly Oliveira MD Primary Care Provider [phone] Encounter Details Date Type Department Care Team [...] AM EST Hospital Encounter Non-Invasive [place] [address] Arrived documented as of this encounter Visit Diagnoses Not on filedocumented in this encounter Care Teams Sales Service Route Manager Relationship Specialty Start Date End Date Lolly Oliveira MD [address] [place] [address] PCP - General 07/17/13 documented as of this encounter
--- OUTSIDE RECORDS SUMMARY | 2024-01-26 10:52 | XMS_ITS | Encounter Summary ---
Author Organization [facility] [place] [address] Care Team Providers Care Court Clerk Name Role Phone Unavailable Primary Care Provider Unavailabl e Encounter Details Date Type Department Care Team (Late st Contact Info) Description 07/04/2012 Orders [place] [phone] Eleno Christian MD [facility] [place] [address] Social History Tobacco Use Types Packs/Day Years [...] Hospital Encounter Non[place] [address] Arrived documented as of this encounter Procedures [...] is a Non-reportable exam Eleno Christian MD [facility] ORD ERABLES documented in this encounter Visit Diagnoses Not on filedocumented in this encounter
--- OUTSIDE RECORDS SUMMARY | 2024-01-26 10:52 | XMS_ITS | Encounter Summary ---
Author Organization [facility] [place] [address] Care Team Providers Care Reconciler Name Role Phone Lolly Oliveira MD Primary Care Provider [phone] Encounter Details Date Type Department Care Team (Latest Contact Info) Description 07/20/2013 9:26 AM EDT - 07/20/2013 11:59 PM EDT Hospital [place] [address] CLINIC, Lolly So MD [address] [place], [place] [phone] Mammographic microcalcification Discharge Disposition: Home Social History [...] AM EST Hospital Encounter Non-Invasive [place] [address] Arrived documented as of this encounter Procedures [...] layer and, therefore, are not sales representative business courses of milk of calcium. Again, these have [...] layer and, therefore, are not sales representative business courses of milk of calcium. Again, these have an amorphous andpunctate appearance and remain indeterminate. Stereotactic guided biopsy isrecommended. Alia Fraire MD IMG MAMMO ORDERABLES documented in this encounter Visit Diagnoses Diagnosis Mammographic microcalcification documented in this encounter Care Teams Reconciler Relationship Specialty Start Date End Date Lolly Oliveira MD [address] [place] [address] PCP - General 07/17/13 documented as of this encounter
--- OUTSIDE RECORDS SUMMARY | 2024-01-26 10:52 | XMS_ITS | Encounter Summary ---
Author Organization Pending [facility] To [facility] Address [facility] [address] Care Team Providers Care Field Associate Name Role Phone Lolly Oliveira MD Primary Care Provider [phone] Reason for Visit * Auth/Cert (Routine) Specialty Diagnoses / Procedures Referred By Contac t Referred To Contact Diagnoses Left bundle-branch block, unspecified Other cardiomyopathies Left bundle branch block [I44.7]Nonischemic cardiomyopathy [I42.8] Procedures PRG CATH PLMT LEFT HEART CATH & ARTS W/INJ & ANGIO IMG S&I ELECTROPHYSIOLOGY PROCEDURE Lalit Mcmahon MD [facility] [place] [address] [facility] Referral ID Status Reason Start Date Expiration Date Visits Re quested Visits Authorized [id number] 1 1 Encounter Details Date Type Department Care Team (Latest Contact Info) Description 07/23/2022 11:39 AM EDT - 07/24/2022 10:23 AM EDT Hospital [place] [phone] Lalit Mcmahon MD [facility] [place] [address] Left bundle branch block; Nonischemic cardiomyopathy; Cardiac resynchronization therapy defibrillator (PICKED EDGE SEWING MACHINE OPERATOR-D) in place Discharge Disposition: Home Social [...] Luna Mott Patient Age: 71 y.o. Language: Hungarian Race: White Ethnicity: Not nor Admit date: 07/23/2022 Discharge date and time: 07/24/22 Attending Physician: Lailt Mcmahon MD Discharge Physician: Lalit Mcmahon MD Follow-up Recommendations for Providers: - s/p PICKED EDGE SEWING MACHINE OPERATOR-D implant - post implant QRS [...] Solar lentigo Operations/Major Procedures: 07/23/22: [facility] PICKED EDGE SEWING MACHINE OPERATOR-D implant History of Presentation: 71 y.o. female with a history of HFrEF, LBBB, QRS >150, NYHA II who is POD#1 of PICKED EDGE SEWING MACHINE OPERATOR-D implant ([employer]). Hospital Course: Elective admission for PICKED EDGE SEWING MACHINE OPERATOR-D implant Admitted post-implant for pain [...] (heart failure with reduced ejection fraction) [I50.20] PICKED EDGE SEWING MACHINE OPERATOR-D implant Admission Condition: good Indication [...] g Refills: 3 fluticasone propionate 50 mcg/actuation [facility], Suspension Commonly known as: Flonase 1 spray [...] the incision. Make sure to use a plain clothes police officer (such as a towel) in between the [...] F. The office scheduling phone number is [phone]. ARM MOVEMENT RESTRICTIONS POST-IMPLANT - Do not [...] please call the Cardiac ElectrophysiologyTriage Nurse at [phone], option 3. General Instructions None Discharge References/Attachments None Lalit Mcmahon MD S Cardiac Electrophysiology 07/24/2022 12:33 PM documented in this encounter Discharge Instructions * Patient Instructions* Fadi Nunez MD - 07/24/2022 8:10 AM EDT FINAL ICD/PACEMAKER RECOMMENDATIONS: 1. Standard post implant discharge instructions (see below): 2. Medications as listed above. You may use ice packs over the incision. Make sure to use a plain clothes police officer (such as a towel) in between the [...] F. The office scheduling phone number is [phone]. ARM MOVEMENT RESTRICTIONS POST-IMPLANT - Do not [...] please call the Cardiac ElectrophysiologyTriage Nurse at [phone], option 3. documented in this encounter Medications [...] with spacer fluticasone propionate (Flonase) 50 mcg/actuation [facility], Suspension 1 spray by Each Nare route [...] Cardiac Electrophysiology Post-Implant Device Interrogation Luna Mott [id number] 07/24/2022 History: Luna Mott is a 71 y.o. female with a history of HFrEF, LBBB, QRS >150, NYHA II who is POD#1 of PICKED EDGE SEWING MACHINE OPERATOR-D implant ([employer]). Overall feels well this morning. Ready [...] Neuro- A&Ox3 Device Interrogation: Data ?? Assistant Nurse Manager Model # Serial # Generator [employer] [id number] Atrial Lead [employer] [id number] RV Lead [employer] [id number] LV Lead [employer] [id number] ?? Diagnostics Pacing Mode: DDD 60-130 Underlying Rhythm: [place] Atrial Episodes: None Ventricular Episodes: None FINAL PROGRAMMING: Pacing: Mode Lower rate (ppm) Upper rate (ppm) ?? DDD 60 130 VF: Rate (bpm) #Antitachycardia pacing First shock energy (J) ?? 200 Quick convert 41 VT: 170 Monitor only Monitor only ? Battery and Leads Impedances (ohms) Sensing (mV) Thresholds HV RA RV LV RA RV LV RA RV LV 73 [phone] (LVa) 7.7 13.1 >25 0.4V @ 0.4 ms 0.4V @ 0.4 ms 0.5 V @ 1.0 ms POD#1 CXR: All leads in nominal positioning Impression: 71 y.o. female who is s/p PICKED EDGE SEWING MACHINE OPERATOR-D implant for LBBB, NYHA II, [...] [facility]) Fadi Nunez MD 07/24/2022 Pager: [phone] I met with the patient today and [...] agreement. ? Dr. Lalit Mcmahon, electrophysiology attending ([id number]) * Zaria Wright RN - 07/23/2022 8:28 [...] HF, QRS > 150 ms presents for PICKED EDGE SEWING MACHINE OPERATOR-D placement. ROS: Denies recent fevers [...] 0.9) flush 5 mL 5 mL Intravenous [id number] ramos MD ??? sodium chloride 0.9 % (flush) (BD PosiFlush Normal Saline 0.9) flush 5-20 mL 5-20 mL Intravenous Q1 Min PRN Lalit Mcmahon MD ??? lidocaine (Xylocaine) 1% (10 mg/mL) injection 3 mg 0.3 mL Subcutaneous Once PRN Lalit Mcmahon MD ??? ceFAZolin (Ancef) 2 g vial attach to sodium chloride 0.9% 100 mL Mini-Bag Plus 2 g Intravenous Once Lalit Mcmahno MD PAST SURGICAL HISTORY: History reviewed. No [...] HF, QRS > 150 ms presents for PICKED EDGE SEWING MACHINE OPERATOR-D placement. Backup would be LBBAP lead. Antibiotics: cefazolin Rationales for, intended benefits and potential risk of planned procedures reviewed. The patient indicated understanding and agreement with the plan. Informed consent signed. Procedure checklist completed. Fadi Nunez MD Cardiac Electrophysiology Fellow [facility] Pager [phone] 07/23/2022 I met with the patient today [...] agreement. ? Dr. Lalit Mcmahon, electrophysiology attending ([id number]) documented in this encounter Miscellaneous Notes * Brief Op Note - Lalit Mcmahon MD - 07/23/2022 4:04 PM EDT Brief Operative Note Patient Name: Luna Mott : [id number] MR#: [id number] Case Date: 07/23/2022 Surgeon: Surgeon(s) and Role: [...] AM EST Hospital Encounter [place] [address] Arrived Scheduled Orders Name Type Priority Associated Diagnoses Orde r Schedule EKG 12 Lead ECG Routine Cardiac resynchronization therapy defibrillator (PICKED EDGE SEWING MACHINE OPERATOR-D) in place One Time for [...] (Bezet) 522 ms MUSE SYSTEM Calculated R [place] 78 degrees MUSE SYSTEM Calculated T [place] -71 degrees MUSE SYSTEM INTERPRETATION AV dual-paced [...] questions please contact the health health care consultant that requested your imaging first. ? Electronically signed by: Kwame Vargas MD, [facility] ([phone]), at 07/24/2022 6:43 AM Narrative 07/24/2022 6:43 [...] have questions please contactthe health health care consultant that requested your imaging first. Electronically signed by: Kwame Vargas MD, [facility]([phone]), at 07/24/2022 6:43 AM Lalit Mcmahon MD IMG DX ORDERABLES * ELECTROPHYSIOLOGY PROCEDURE (07/23/2022 1:11 PM EDT) Anatomical Region Laterality Modality Other Narrative 07/23/2022 4:24 PM EDT Table formatting from the original result was not included. BIVENTRICULAR ICD IMPLANTATION Wrap Turner: Lalit Mcmahon MD Fellow: Fadi Nunez MD [...] lateral branch of the CS in the FAROESE view. This branch was cannulated with a [...] entire procedure. LEAD AND GENERATOR DATA: Assistant Nurse Manager Model # Serial # Generator [employer] [id number] Atrial Lead [employer] [id number] RV Lead [employer] [id number] LV Lead [employer] [id number] PACE/SENSE DATA: Sensed wave (mV) Threshold (V) [...] (cGycm2) 300 CONCLUSIONS: Successful implantation of a [employer] biventricular ICD for primary prevention and treatment of symptoms related to congestive heart failure. Follow up in EP clinic in 1-2 months. Procedures performed: new ICD system ( cpt 13039-K9); implant LV lead at time of ICD insertion (cpt 36699) I have read, edited and approve of this report: Lalit Mcmahon MD S Cardiac Electrophysiology 07/23/2022 4:22 PM Procedure Note Lalit Mcmahon MD - 07/23/2022 BIVENTRICULAR ICD IMPLANTATION Wrap Turner: Lalit Mcmahon MD Fellow: Fadi Nunez MD [...] appropriate lateralbranch of the CS in the FAROESE view. This branch was cannulated with a [...] the entireprocedure. LEAD AND GENERATOR DATA: Assistant Nurse Manager Model # Serial # Generator [employer] [id number] Atrial Lead [employer] [id number] RV Lead [employer] [id number] [id number] LV Lead [employer] [id number] PACE/SENSE DATA: Sensed wave (mV) Threshold (V) [...] (cGycm2) 300 CONCLUSIONS: Successful implantation of a [employer] biventricular ICD forprimary prevention and treatment of symptoms related to congestive heartfailure. Follow up in EP clinic in 1-2 months. Procedures performed: new ICD system ( cpt 03211-Y1); implant LV lead attime of ICD insertion (cpt 29951) I have read, edited and approve of this report: Lalit Mcmahon MD [facility] Cardiac Electrophysiology 07/23/2022 4:22 PM Lalit Mcmahon MD EP PROCEDURE ORDERAB LES * POCT Glucose (07/23/2022 12:54 PM EDT) Glucose, POC 83 65 - 199 mg/dL [facility] Comment: Supplemental ranges: <140 mg/dL before meals <180 mg/dL all other times of the day Blood 07/23/2022 12:5 4 PM EDT 07/23/2022 12:54 PM EDT Lalit Mcmahon MD POINT OF CARE TEST O RDERABLES Performing Organization Address [facility] Co de Phone Number [facility] [place] [address] * EKG 12 Lead (07/23/2022 12:33 PM EDT) Ventricular rate 72 BPM MUSE SYSTEM Atrial Rate 72 BPM MUSE SYSTEM P-R Interval 158 ms MUSE SYSTEM QRS Duration 176 ms MUSE SYSTEM Q-T Interval 458 ms MUSE SYSTEM QTC Calculated (Bezet) 501 ms MUSE SYSTEM Calculated P [place] 34 degrees MUSE SYSTEM Calculated R [place] 12 degrees MUSE SYSTEM Calculated T [place] -173 degrees MUSE SYSTEM INTERPRETATION Normal sinus rhythm Left bundle branch block Abnormal ECG No previous ECGs available Confirmed by MD Salome, Lalit ([id number]) on 07/23/2022 1:19:03 PM MUSE SYSTEM 07/23/2022 12:3 3 PM EDT 07/23/2022 1:19 PM EDT Lalit Mcmahon MD ECG ORDERABLES Performing Organization Address [facility] de Phone Number MUSE SYSTEM * Differential, Automated (07/23/2022 11:55 AM EDT) Neutrophil % 62.6 % [facility] Neutrophil Absolute 4.14 1.70 - 6.10 x10(3)/[facility] Lymph % 27.0 % [facility] Lymphocytes Abs 1.8 0.9 - 3.2 x10(3)/[facility] Monocyte % 7.3 % [facility] Monocyte Abs 0.5 0.3 - 0.9 x10(3)/[facility] Eos % 2.3 % [facility] Eosinophils Abs 0.2 0.0 - 0.4 x10(3)/[facility] Basophil % 0.6 % [facility] Baso Absolute 0.0 0.0 - 0.1 x10(3)/[facility] Immature Gran % 0.20 % [facility] Comment: Immature granulocytes(IG's)percentage and absolute count will include metamyelocytes, myelocytes, and promyelocytes. Blood smears from CBCs yielding IG's will be scanned manually for concordance. If this scan disagrees with the automated IG or if promyelocytes are noted, a manual differential will be performed. Immature Gran Absolute 0.01 0.00 - 0.04 x10(3)/[facility] Blood 07/23/2022 11:5 5 AM EDT 07/23/2022 12:07 PM EDT Narrative Resulting Agency Comment Spec In Lab Lalit Mcmahon MD HEMATOLOGY ORDERABLE S [facility] [place] [address] * Hemogram (07/23/2022 11:55 AM EDT) White Blood Cell 6.6 4.0 - 9.5 x10(3)/[facility] Red Blood Cell 4.50 4.00 - 5.21 x10(6)/[facility] Hemoglobin 13.7 11.7 - 15.5 g/dL [facility] Hematocrit 42.5 35.7 - 45.8 % [facility] Mean Cell Volume 94.4 82.6 - 94.4 fL [facility] Mean Cell Hemoglobin 30.4 27.1 - 32.0 pg [facility] Mean Cell Hemoglobin Concentration 32.2 31.7 - 35.0 g/dL [facility] Platelet 193 145 - 357 x10(3)/[facility] RDW Standard Deviation 45.5 37.0 - 46.0 fL [facility] RDW coefficient of variation 13.2 11.5 - 14.1 % [facility] Mean Platelet Volume 9.5 7.6 - 12.9 fL [facility] NRBC% auto 0.0 % [facility] NRBC Absolute 0.000 0.000 - 0.000 x10(3)/mcL [facility] Blood 07/23/2022 11:5 5 AM EDT 07/23/2022 12:07 PM EDT Narrative Resulting Agency Comment Spec In Lab Lalit Mcmahon MD HEMATOLOGY ORDERABLE S [facility] [address] [place] [address] * (ABNORMAL) BMP w/fasting Glucose (07/23/2022 11:55 AM EDT) Glucose Fasting 110(H) 65 - 99 mg/dL [facility] Comment: ?Fasting* Glucose Interpretive [...] of Diabetes Mellitus, Position Statement from the [place] [employer]. ??Diabetes Care, Volume 33, Supplement 1, Mar 2009 Blood Urea Nitrogen 23(H) 8 - 18 mg/dL [facility] Creatinine 1.07 0.70 - 1.20 mg/dL [facility] Sodium 141 135 - 145 mmol/L [facility] Potassium 4.8 3.5 - 5.0 mmol/L [facility] Comment: Please note: ??Patients with WBC >100,000 may have falsely elevated Potassium levels. ??For accurate Potassium quantification in these patients send serum separator tube (gold top) for subsequent determinations. ??Contact the Clinical Chemistry Laboratory if there are any questions. Chloride 106 98 - 107 mmol/L [facility] Carbon Dioxide 26 22 - 31 mmol/L [facility] Anion Gap 9 5 - 15 mmol/L [facility] Calcium 9.7 8.5 - 10.5 mg/dL [facility] Est Glomerular Filtration Rate 55(L) >=60 mL/min/1. 73 m?? [facility] Comment: This patient's estimated [...] Mcmahon MD CHEMISTRY ORDERABLES Performing Organization Address [facility] Co de Phone Number [facility] [place] [address] * Prothrombin Time (07/23/2022 11:55 AM EDT) Prothrombin Time 11.7 9.4 - 12.5 sec [facility] International Normalization Ratio 1.0 [facility] Comment: An INR <2.0 [...] Performing Organization Address City/[facility] Co de Phone Number [facility] [place] [address] documented in this encounter Visit Diagnoses Diagnosis HFrEF (heart failure with reduced ejection fraction)- Primary Left bundle branch block Other left bundle branch block Nonischemic cardiomyopathy Other primary cardiomyopathies Cardiac resynchronization therapy defibrillator (PICKED EDGE SEWING MACHINE OPERATOR-D) in place Left bundle branch [...] this AM) 0849 (Given - Provider: Alia rFye RN) BUpivacaine (pf) (Marcaine) (5 mg/mL) 0.5% [...] Routine documented in this encounter Care Teams Field Associate Relationship Specialty Start Date End Date Lolly Oliveira MD [address] [place] [address] PCP - General 07/17/13 documented as of this encounter
--- OUTSIDE RECORDS SUMMARY | 2024-01-26 10:52 | XMS_ITS | Encounter Summary ---
Author Organization [facility] [place] [address] Care Team Providers Care Television News Anchor Name Role Phone Lolly Oliveira MD Primary Care Provider Reason for Visit * Reason Comments Psoriasis Encounter Details Date Type Department Care Team (Late st Contact Info) Description 04/09/2022 1:45 PM EST Office Visit Dermatology at [address] [address] Clay Ramírez MD [address] [facility] [place] [address] Psoriasis, guttate Social History Tobacco Use Types [...] AM EST Hospital Encounter Non-Invasive [place] [address] Arrived documented as of this encounter Visit Diagnoses Diagnosis Psoriasis, guttate Other psoriasis documented in this encounter Care Teams Television News Anchor Relationship Specialty Start Date End Date Lolly Oliveira MD [address] [place] [address] PCP - General 07/17/13 documented as of this encounter
--- OUTSIDE RECORDS SUMMARY | 2024-01-26 10:52 | XMS_ITS | Encounter Summary ---
Author Organization [facility] [place] [address] Care Team Providers Care Permanent Waver Name Role Phone Lolly Oliveira MD Primary Care Provider [phone] Reason for Visit * Reason Onset Date Comments Other 07/24/2022 Implanted Cardia c Device Teaching/Education Encounter Details Date Type Department Care Team (Late st Contact Info) Description 07/24/2022 Notes Only Cardiology at [address] [phone] Letha Arroyo Other (Implanted Cardiac Device Teaching/Education) [...] to call the Cardiac Device Clinic at [phone] with any questions. Plan: Post op check: [...] st Contact Info) Description 04/15/2024 10:00 AM [facility] Hospital Encounter Non-[place] [address] Arrived documented as of this encounter Visit Diagnoses Not on filedocumented in this encounter Care Teams Permanent Waver Relationship Specialty Start Date End Date Lolly Oliveira MD [address] [place] [address] PCP - General 07/17/13 documented as of this encounter
--- OUTSIDE RECORDS SUMMARY | 2024-01-26 10:52 | XMS_ITS | Encounter Summary ---
Author Organization [facility] [place] [address] Care Team Providers Care Supervisor Fish Hatchery Name Role Phone Lolly Oliveira MD Primary Care Provider [phone] Reason for Visit * Reason Onset Date Comments Post Procedure Call 07/30/2022 Encounter Details Date Type Department Care Team (Late st Contact Info) Description 07/30/2022 Notes Only Cardiology at [address] [phone] Rosenda Sutton, RN Post Procedure Call Social History Tobacco Use Types Packs/Day Years Used Date Smoking Tobacco: Never Alcohol Use Standard Drinks/Week Comments Not Currently 0 (1 standard drink = 0.6 oz pur e alcohol) [facility] Inpatient Questions Answer Date Recorded Does [...] 07/30/2022 9:59 AM EDTSummary: Post Procedure Call: ASSEMBLER TRACTOR implant EP RN Post-Procedure Note: Date of [...] Note: Follow-up Recommendations for Providers: - s/p ASSEMBLER TRACTOR-D implant - post implant QRS 130 ms - reviewed post-implant instructions - no medication changes - Follow up in device clinic for wound/device check in ~10 days??([facility]) Wound Care: -Wound will heal in [...] st Contact Info) Description 04/15/2024 10:00 AM [facility] Encounter [place] [address] Arrived documented as of this encounter Visit Diagnoses Not on filedocumented in this encounter Care Teams Supervisor Fish Hatchery Relationship Specialty Start Date End Date Lolly Oliveira MD [address] [place] [address] PCP - General 07/17/13 documented as of this encounter
--- OUTSIDE RECORDS SUMMARY | 2024-01-26 10:52 | XMS_ITS | Encounter Summary ---
Author Organization [facility] [place] [address] Care Team Providers Care [employer] Officer Name Role Phone Unavailable Primary Care Provider Unavailabl e Encounter Details Date Type Department Care Team (Late st Contact Info) Description 07/14/2013 [place] [phone] Eleno Christian MD [facility] [place] [address] Social History Tobacco Use Types Packs/Day Years [...] AM EST Hospital Encounter Non-Invasive [place] [address] Arrived documented as of this encounter Visit Diagnoses Not on filedocumented in this encounter
--- OUTSIDE RECORDS SUMMARY | 2024-01-26 10:52 | XMS_ITS | Encounter Summary ---
Author Organization [facility] [place] [address] Care Team Providers Care Senior Care Provider Name Role Phone Lolly Oliveira MD Primary Care Provider [phone] Reason for Visit * Diagnostic Test (Routine) - Closed Specialty Diagnoses / Procedures Referred By Contac t Referred To Contact Radiology Diagnoses Left bundle branch block Nonischemic cardiomyopathy Procedures MRI Cardiac Morphology Function With Flow Velocity Quantification wwo Contrast MRI Cardiac Morphology Function wwo Contrast Lalit Mcmahon MD [facility] [place] [address] [facility] [place] [address] Referral ID Status Reason Start Date Expiration Date V isits Requested Visits Authorized [id number] Closed Specialty Service Requested 05/06/2022 11/07/2023 2 1 Encounter Details Date Type Department Care Team (Latest Contact Info) Description 07/14/2022 9:09 AM EDT - 07/14/2022 11:59 PM EDT Hospital [place] [address] Lalit Mcmahon MD [facility] [place] [address] Discharge Disposition: Home Social History Tobacco Use [...] with spacer fluticasone propionate (Flonase) 50 mcg/actuation [place], Suspension 1 spray by Each Nare route [...] AM EST Hospital Encounter [place] [address] Arrived documented as of this [...] mLs documented in this encounter Care Teams Senior Care Provider Relationship Specialty Start Date End Date Lolly Oliveira MD [address] [place] [address] PCP - General 07/17/13 documented as of this encounter
[2024-01-26 11:32] VITALS: BP 120/61; PULSE 60
[2024-01-28 11:12] VITALS: BP 126/69; PULSE 73; O2SAT 94
--- OUTSIDE RECORDS SUMMARY | 2024-01-28 11:13 | XMS_ITS | Encounter Summary ---
Author Organization Count Includes [facility] [address] Care Team Providers Care Machine Ceramic Coater Name Role Phone Lolly Oliveira MD Primary Care Provider [phone] Encounter Details Date Type Department Care Team (Latest Contact Info) Description 07/20/2023 10:00 AM EDT - 07/20/2023 11:59 PM EDT Hospital Encounter [place] [phone] Discharge Disposition: Home Social History Tobacco Use [...] with spacer fluticasone propionate (Flonase) 50 mcg/actuation [place], Suspension 1 spray by Each Nare route daily as needed. documented as of this encounter Plan of Treatment Upcoming Encounters Date Type Department Care Team (Late st Contact Info) Description 04/15/2024 10:00 AM EST Hospital Encounter Non[place] [address] Arrived documented as of this encounter Procedures [...] filedocumented in this encounter Care Teams Machine Ceramic Coater Relationship Specialty Start Date End Date Lolly Oliviera MD [address] [place] [address] PCP - General 07/17/13 documented as of this encounter
--- OUTSIDE RECORDS SUMMARY | 2024-01-28 11:13 | XMS_ITS | Encounter Summary ---
Author Organization [place] [address] Care Team Providers Care Instructor Kindergarten Name Role Phone Lolly Oliveira MD Primary Care Provider [phone] Encounter Details Date Type Department Care Team (Late st Contact Info) Description 03/17/2023 Telephone Cardiology at [address] [phone] Saranya Ma Social History Tobacco Use Types [...] AM EST Echo order faxed to [facility] at [phone]. No Prior auth needed. Ref #:[id number]. Saranya Ma Sr. Clinical Procedure [place]/Stock Or Delivery Clerk documented in this encounter Plan of Treatment Upcoming Encounters Date Type Department Care Team (Late st Contact Info) Description 04/15/2024 10:00 AM [facility] Hospital Encounter [place] [address] Arrived documented as of this encounter Visit Diagnoses Not on filedocumented in this encounter Care Teams Instructor Kindergarten Relationship Specialty Start Date End Date Lolly Oliveira MD [address] [place] [address] PCP - General 07/17/13 documented as of this encounter
--- OUTSIDE RECORDS SUMMARY | 2024-01-28 11:13 | XMS_ITS | Encounter Summary ---
Author Organization [facility] Address [address] [place] [address] Care Team Providers Care Interlocking And Signal Mechanic Name Role Phone Lolly Oliveira MD Primary Care Provider [phone] Encounter Details Date Type Department Care Team (Late st Contact Info) Description 05/02/2004 Results Only [facility] conversion [address] [place] [address] Lolly Oliveira MD [address] [place], [place] [phone] Social History Tobacco Use Types Packs/Day Years [...] 68. [facility] Report Status Final [id number] [facility] 05/02/2004 9:32 EST 05/10/2004 9:32 EST us Lolly Oliveira MD MICROBIOLOGY - GENERAL ORDERABL ES Final Result [facility] [address] [place] [address] * CYTOPATHOLOGY (05/02/2004 0:00 EST) Pathology Report: CYTOPATHOLOGY REPORT Reports generated via electronic interface contain original data; however they are lacking the format of the original report. Caution should be taken when reading/interpreti ng unformatted reports. Name: ? JING ALVARENGA ? Accession #: ? [id number] : ? 1950 (Age: 53) ??F ?Collect [...] ORDERABLES Final Resu lt Performing Organization Address City/State/[facility] Co de Phone Number [facility] [address] [place] [address] documented in this encounter Visit Diagnoses Not on filedocumented in this encounter Care Teams Interlocking And Signal Mechanic Relationship Specialty Start Date End Date Lolly Oliveira MD [address] [place] [address] PCP - General 11/13/08 documented as of this encounter
--- OUTSIDE RECORDS SUMMARY | 2024-01-28 11:13 | XMS_ITS | Clinical Summary ---
Author Organization [facility] Address [address] [place] [address] Care Team Providers Care Map Colorer Name Role Phone Lolly Oliveira MD Primary Care Provider [phone] Social History Tobacco Use Types Packs/Day Years [...] 08/10/2023 COVID-19 Vaccine (2023- season) 2023 Insurance [facility] MEDICARE Care Teams Map Colorer Relationship Specialty Start Date End Date Berrian, Lolly, MD [address] [place] [address] PCP - General 11/13/08
--- OUTSIDE RECORDS SUMMARY | 2024-01-28 11:13 | XMS_ITS | Encounter Summary ---
Author Organization [facility] [place] [address] Care Team Providers Care Bleach Plant Operator Name Role Phone Lolly Oliveira MD Primary Care Provider [phone] Encounter Details Date Type Department Care Team (Latest Contact Info) Description 04/21/2023 10:00 AM EST - 04/21/2023 11:59 PM EST Hospital Encounter [place] [address] Discharge Disposition: Home Social History Tobacco Use [...] with spacer fluticasone propionate (Flonase) 50 mcg/actuation [place], Suspension 1 spray by Each Nare route [...] AM EST Hospital Encounter Non[place] [address] Arrived documented as of this [...] on filedocumented in this encounter Care Teams Bleach Plant Operator Relationship Specialty Start Date End Date Lolly Oliveira MD [address] [place] [address] PCP - General 07/17/13 documented as of this encounter
--- OUTSIDE RECORDS SUMMARY | 2024-01-28 11:13 | XMS_ITS | Encounter Summary ---
Author Organization [facility] [address] Care Team Providers Care Search Marketing Coordinator Name Role Phone Lolly Oliveira MD Primary Care Provider [phone] Encounter Details Date Type Department Care Team (Latest Contact Info) Description 01/16/2024 10:00 AM EST - 01/16/2024 11:59 PM EST Hospital Encounter Non-Invasive [place] [phone] Discharge Disposition: Home Social History Tobacco Use Types Packs/Day Years Used Date Smoking Tobacco: Never Alcohol Use Standard Drinks/Week Comments Not Currently 0 (1 standard drink = 0.6 oz pur e alcohol) ON LICENSE OF [facility] Inpatient Questions Answer Date [...] with spacer fluticasone propionate (Flonase) 50 mcg/actuation [place], Suspension 1 spray by Each Nare route daily as needed. documented as of this encounter Plan of Treatment Upcoming Encounters Date Type Department Care Team (Late st Contact Info) Description 04/15/2024 10:00 AM EST Hospital Encounter Non-Invasive [place] [phone] Arrived documented as of this encounter Procedures [...] on filedocumented in this encounter Care Teams Search Marketing Coordinator Relationship Specialty Start Date End Date Lolly Oliveira MD [address] [place] [address] PCP - General 07/17/13 documented as of this encounter
--- OUTSIDE RECORDS SUMMARY | 2024-01-28 11:13 | XMS_ITS | Encounter Summary ---
Author Organization [facility] [place] [address] Care Team Providers Care Employee Relations Advisor Name Role Phone Lolly Oliveira MD Primary Care Provider [phone] Encounter Details Date Type Department Care Team (Late st Contact Info) Description 05/18/2023 Refill Dermatology at [address] [address] Nora Meredith LPN Social History [...] patient. She voiced understanding. Order sent to [facility] drug. documented in this encounter Plan of Treatment Upcoming Encounters Date Type Department Care Team (Late st Contact Info) Description 04/15/2024 10:00 AM EST Hospital Encounter Non-Invasive [place] [address] Arrived documented as of this encounter Visit Diagnoses Not on filedocumented in this encounter Care Teams Employee Relations Advisor Relationship Specialty Start Date End Date Lolly Oliveira MD [address] [place] [address] PCP - General 07/17/13 documented as of this encounter
--- OUTSIDE RECORDS SUMMARY | 2024-01-28 11:13 | XMS_ITS | Clinical Summary ---
Author Organization [facility] [place] [address] Care Team Providers Care Repair Armature Winder Helper Name Role Phone Lolly Oliveira MD Primary Care Provider [phone] Allergies Active Allergy Reactions Criticality Noted Date [...] spacer Active fluticasone propionate (Flonase) 50 mcg/actuation [place], Suspension 1 spray by Each Nare [...] PM EST Hospital Encounter Non-Invasive [place] [address] Discharge Disposition: Home from Last [...] AM EST Hospital Encounter Non-Invasive [place] [address] Arrived Health Maintenance Due Date Last Done [...] series) 11/07/2023 Medical Devices Implanted Type Area Sealer Operator Device Identifier Shelf Expiration Date Model / Serial / Lot Bsx: [id number]: 692403-0/18/2 023 Implanted: by Lalit Mcmahon MD (Quantity not on file) Defibrillator Chest Wall [employer] [id number] / [id number] / Bsx: [id number]: [id number]/18/2 023 Implanted: by Lalit Mcmahon MD (Quantity not on file) Lead Heart [employer] 4674 / [id number] / Bsx: [id number]: [id number] Implanted: by Lalit Mcmahon MD (Quantity not on file) Lead Heart [employer] 7841 / [id number] / Bsx: 0672: 285290-3/18/2 023 Implanted: by Lalit Mcmahon MD (Quantity not on file) Lead Heart [employer] 0672 / [id number] / Procedures Procedure Name Priority Date/Time Associated [...] Status decision made by: Patient Care Teams Repair Armature Winder Helper Relationship Specialty Start Date End Date Lolly Oliveira MD [address] [place] [address] PCP - General 07/17/13
--- OUTSIDE RECORDS SUMMARY | 2024-01-28 11:13 | XMS_ITS | Encounter Summary ---
Author Organization [facility] Address [address] [place] [address] Care Team Providers Care Gm Name Role Phone Lolly Oliveira MD Primary Care Provider [phone] Encounter Details Date Type Department Care Team (Late st Contact Info) Description 04/25/2009 Orders Only [facility] [address] [place], [place] [id number] Lolly Oliveira MD [address] [place], [place] [id number] Social History Tobacco Use Types Packs/Day Years [...] ? JING ALVARENGA ? Accession #: ? [id number] ? : ? 1950 (Age: 58) ??F [...] ORDERABLES Final Resu lt Performing Organization Address [facility]/State/ZIP Co de Phone Number [facility] [address] [place] [address] documented in this encounter Visit Diagnoses Not on filedocumented in this encounter Care Teams Gm Relationship Specialty Start Date End Date Lolly Oliveira MD [address] [place] [address] PCP - General 11/13/08 documented as of this encounter
--- OUTSIDE RECORDS SUMMARY | 2024-01-28 11:13 | XMS_ITS | Encounter Summary ---
Author Organization [place] [address] Care Team Providers Care District Sales Representative Name Role Phone Lolly Oliveira MD Primary Care Provider [phone] Encounter Details Date Type Department Care Team (Late st Contact Info) Description 03/15/2023 Telephone Cardiology at [address] [phone] Saranya Ma Social History Tobacco Use Types [...] [facility] prior to her appt withnhm there on 05/12/23. Message sent to Dr. Mcmahon asking him to put order in if he would like her to have this done. Saranya Ma Sr. Clinical Procedure Account Leader/Irrigation Supervisor documented in this encounter Plan of Treatment Upcoming Encounters Date Type Department Care Team (Late st Contact Info) Description 04/15/2024 10:00 AM EST Hospital Encounter Non[place] [address] Arrived documented as of this encounter Visit Diagnoses Not on filedocumented in this encounter Care Teams District Sales Representative Relationship Specialty Start Date End Date Lolly Oliveira MD [address] [place] [address] PCP - General 07/17/13 documented as of this encounter
--- OUTSIDE RECORDS SUMMARY | 2024-01-28 11:13 | XMS_ITS | Encounter Summary ---
Author Organization [facility] Address [facility] [place] [address] Care Team Providers Care Arch Cushion Press Operator Name Role Phone Lolly Oliveira MD Primary Care Provider Encounter Details Date Type Department Care Team (Late st Contact Info) Description 03/15/2023 Orders Only Cardiology at [address] [phone] Lalit Mcmahon MD [facility] [place] [address] Nonischemic cardiomyopathy; Biventricular ICD (implantable cardioverter-defibrill ator) [...] AM EST Hospital Encounter [place] [address] Arrived documented as of this encounter Visit Diagnoses Diagnosis Nonischemic cardiomyopathy Other primary cardiomyopathies Biventricular ICD (implantable cardioverter-defibrillator) in place documented in this encounter Care Teams Arch Cushion Press Operator Relationship Specialty Start Date End Date Lolly Oliveira MD [address] [place] [address] PCP - General 07/17/13 documented as of this encounter
--- OUTSIDE RECORDS SUMMARY | 2024-01-28 11:13 | XMS_ITS | Encounter Summary ---
Author Organization [facility] Address [address] [place] [address] Care Team Providers Care Form Builder Helper Name Role Phone Lolly Oliveira MD Primary Care Provider [phone] Encounter Details Date Type Department Care Team (Late st Contact Info) Description 04/01/2005 Results Only [facility] conversion [address] [place] [address] Blair Dukes MD [address] [place] [id number] Social History Tobacco Use Types Packs/Day Years [...] ? JING ALVARENGA ? Accession #: ? [id number] ? : ? 1950 (Age: 54) ??F [...] ? Received in Hollande' s fixative labelled [place] and #1 ??terminal ileum bx is a single 0.3 x 0.2 x 0.2 cm tissue, submitted intact as (A). Received in [place]e' s fixative labelled [place] and #2 ??transverse colon bx is a single 0.2 x 0.2 x 0.2 cm tissue, submitted intact as (B). ??(Dr. Lechuga)/[facility] End of Report [facility] 04/01/2005 04/02/2005 15: 24 EST us Blair Dukes MD PATHOLOGY ORDERABLES Final Resul t [facility] [address] [place] [address] documented in this encounter Visit Diagnoses Not on filedocumented in this encounter Care Teams Form Builder Helper Relationship Specialty Start Date End Date Lolly Oliveira MD [address] [place] [address] PCP - General 11/13/08 documented as of this encounter
--- OUTSIDE RECORDS SUMMARY | 2024-01-28 11:13 | XMS_ITS | Encounter Summary ---
Author Organization [facility] [place] [address] Care Team Providers Care Nut And Bolt Assembler Name Role Phone Lolly Oliveira MD Primary Care Provider [phone] Encounter Details Date Type Department Care Team (Latest Contact Info) Description 01/21/2023 10:00 AM EST - 01/21/2023 11:59 PM EST Hospital Encounter [place] [address] Discharge Disposition: Home Social History Tobacco Use [...] with spacer fluticasone propionate (Flonase) 50 mcg/actuation [place], Suspension 1 spray by Each Nare route [...] AM EST Hospital Encounter [place] [address] Arrived documented as of this [...] on filedocumented in this encounter Care Teams Nut And Bolt Assembler Relationship Specialty Start Date End Date Lolly Oliveira MD [address] [place] [address] PCP - General 07/17/13 documented as of this encounter
--- OUTSIDE RECORDS SUMMARY | 2024-01-28 11:13 | XMS_ITS | Referral Summary ---
Author Organization [facility] Address [address] [place] [address] Care Team Providers Care Certified Substance Abuse Counselor Name Role Phone Lolly Oliveira MD Primary Care Provider [phone] Social History Tobacco Use Types Packs/Day Years Used Date Smoking Tobacco: Never Assessed Comments Unknown Sex and Gender Information Value Date Recorded Sex Assigned at Not on file Legal Sex Female 18:31 EST Gender Identity Not on file Sexual Orientation Not on file Plan of Treatment Not on file Insurance [facility] MEDICARE Care Teams Certified Substance Abuse Counselor Relationship Specialty Start Date End Date Lolly Oliveira MD [address] [place] [address] PCP - General 11/13/08
--- OUTSIDE RECORDS SUMMARY | 2024-01-28 11:13 | XMS_ITS | Encounter Summary ---
Author Organization [facility] Address [facility] [place] [address] Care Team Providers Care Conductor Symphonic Orchestra Name Role Phone Lolly Oliveira MD Primary Care Provider Encounter Details Date Type Department Care Team (Late st Contact Info) Description 11/11/2022 Orders Only Cardiology at [address] [phone] Lalit Mcmahon MD [facility] [place] [address] Nonischemic cardiomyopathy Social History Tobacco Use Types Packs/Day Years Used Date Smoking Tobacco: Never Alcohol Use Standard Drinks/Week Comments Not Currently 0 (1 standard drink = 0.6 oz pur e alcohol) [facility] Inpatient Questions Answer Date Recorded [...] [facility] Hospital Encounter [place] [address] Arrived documented as of this encounter Visit Diagnoses Diagnosis Nonischemic cardiomyopathy Other primary cardiomyopathies documented in this encounter Care Teams Conductor Symphonic Orchestra Relationship Specialty Start Date End Date Berrian, Lolly M, MD [address] [place] [address] PCP - General 07/17/13 documented as of this encounter
--- OUTSIDE RECORDS SUMMARY | 2024-01-28 11:13 | XMS_ITS | Encounter Summary ---
Author Organization [facility] Address [address] [place] [address] Care Team Providers Care Electrical Laboratory Technician Name Role Phone Lolly Oliveira MD Primary Care Provider [phone] Encounter Details Date Type Department Care Team (Late st Contact Info) Description 04/12/2007 Results Only [facility] [place] conversion [address] [place] [address] Lolly Oliveira MD [address] [place], [place] [id number] Social History Tobacco Use Types Packs/Day Years [...] ? JING ALVARENGA ? Accession #: ? [id number] : ? 1950 (Age: 56) ??F ?Collect Date: ? 04/12/2007 Location: ? [facility] ? Receive Date: ? 04/13/2007 Provider: ?LOLLY OLIVEIRA MD Copy to: ? Specimen/Source: ?ThinPrep Pap Test, Cervix/Endocervix, processed on Dexin Interactive ThinPrep Imaging System, with manual evaluation Last [...] ORDERABLES Final Resu lt [facility] [address] [place] [address] documented in this encounter Visit Diagnoses Not on filedocumented in this encounter Care Teams Electrical Laboratory Technician Relationship Specialty Start Date End Date Lolly Oliveira MD [address] [place] [address] PCP - General 11/13/08 documented as of this encounter
--- OUTSIDE RECORDS SUMMARY | 2024-01-28 11:13 | XMS_ITS | Encounter Summary ---
Author Organization [facility] Address [address] [place] [address] Care Team Providers Care Director Compliance Name Role Phone Lolly Oliveira MD Primary Care Provider [phone] Encounter Details Date Type Department Care Team (Late st Contact Info) Description 04/17/2005 Results Only [facility] [place] conversion [address] [place] [address] Lolly Oliveira MD [address] [place], [place] [id number] Social History Tobacco Use Types Packs/Day Years [...] ? JING ALVARENGA ? Accession #: ? [id number] : ? 1950 (Age: 54) ??F ?Collect Date: ? 04/17/2005 Location: ? [facility] ? Receive Date: ? 04/21/2005 Provider: ?LOLLY OLIVEIRA MD Copy to: ? Specimen/Source: ?ThinPrep Pap Test, Cervix/Endocervix, processed on Printed Piece ThinPrep Imaging System, with manual evaluation Last [...] Final Resu lt [facility] [address] [place] [address] documented in this encounter Visit Diagnoses Not on filedocumented in this encounter Care Teams Director Compliance Relationship Specialty Start Date End Date Lolly Oliveira MD [address] [place] [address] PCP - General 11/13/08 documented as of this encounter
--- OUTSIDE RECORDS SUMMARY | 2024-01-28 11:13 | XMS_ITS | Encounter Summary ---
Author Organization [facility] [place] [address] Care Team Providers Care Director Of Pediatric Rehabilitation Name Role Phone Lolly Oliveira MD Primary Care Provider [phone] Encounter Details Date Type Department Care Team (Late st Contact Info) Description 11/16/2022 Telephone Cardiology at [address] [phone] Luna Rousseau, RN Social History Tobacco Use [...] BP today was 118/57 at [facility] at [facility]. Pt is going twice a week to [...] [facility] Hospital Encounter Non-[place] [address] Arrived documented as of this encounter Visit Diagnoses Not on filedocumented in this encounter Care Teams Director Of Pediatric Rehabilitation Relationship Specialty Start Date End Date Lolly Oliveira MD [address] [place] [address] PCP - General 07/17/13 documented as of this encounter
--- OUTSIDE RECORDS SUMMARY | 2024-01-28 11:13 | XMS_ITS | Encounter Summary ---
Author Organization [facility] [place] [address] Care Team Providers Care Courtesy Car Driver Name Role Phone Lolly Oliveira MD Primary Care Provider [phone] Reason for Visit * Reason Onset Date Comments Post Procedure Call 07/30/2022 Encounter Details Date Type Department Care Team (Late st Contact Info) Description 07/30/2022 Notes Only Cardiology at [address] [phone] Rosenda Sutton, RN Post Procedure Call Social [...] 07/30/2022 9:59 AM EDTSummary: Post Procedure Call: CUSTOMER SUCCESS DIRECTOR implant EP RN Post-Procedure Note: Date of Follow Up Call: 07/30/2022 Spoke With: Patient Procedure Type (choose all that apply): ICD Performing MIRLANDE Mcmahon Date of Procedure: 07/23/2022 Date of Discharge: 07/24/2022 Follow Up EP Visit Scheduled?: No No Follow Up Visit Reason: Follow up outside Outside Location: [facility] Date of Non EP Visit: 08/12/2022 [...] Note: Follow-up Recommendations for Providers: - s/p CUSTOMER SUCCESS DIRECTOR-D implant - post implant QRS 130 [...] st Contact Info) Description 04/15/2024 10:00 AM [facility] Hospital Encounter Non[place] [address] Arrived documented as of this encounter Visit Diagnoses Not on filedocumented in this encounter Care Teams Courtesy Car Driver Relationship Specialty Start Date End Date Lolly Oliveira MD [address] [place] [address] PCP - General 07/17/13 documented as of this encounter
--- OUTSIDE RECORDS SUMMARY | 2024-01-28 11:13 | XMS_ITS | Encounter Summary ---
Author Organization [facility] [place] [address] Care Team Providers Care Precision Machinist Name Role Phone Lolly Oliveira MD Primary Care Provider [phone] Reason for Visit * Reason Onset Date Comments Other 07/24/2022 Implanted Cardia c Device Teaching/Education Encounter Details Date Type Department Care Team (Late st Contact Info) Description 07/24/2022 Notes Only Cardiology at [address] [phone] Letha Arroyo Other (Implanted Cardiac Device Teaching/Education) Social History Tobacco Use Types Packs/Day Years Used Date Smoking Tobacco: Never Alcohol Use Standard Drinks/Week Comments Not Currently 0 (1 standard drink = 0.6 oz pur e alcohol) [facility] Inpatient Questions Answer Date Recorded Does Anyone [...] to call the Cardiac Device Clinic at [phone] with any questions. Plan: Post op check: [...] st Contact Info) Description 04/15/2024 10:00 AM [facility] Hospital Encounter [place] [address] Arrived documented as of this encounter Visit Diagnoses Not on filedocumented in this encounter Care Teams Precision Machinist Relationship Specialty Start Date End Date Lolly Oliveira MD [address] [place] [address] PCP - General 07/17/13 documented as of this encounter
--- OUTSIDE RECORDS SUMMARY | 2024-01-28 11:13 | XMS_ITS | Encounter Summary ---
Author Organization [facility] [address] Care Team Providers Care Protein Scientist Name Role Phone Lolly Oliveira MD Primary Care Provider [phone] Encounter Details Date Type Department Care Team (Latest Contact Info) Description 10/23/2022 10:00 AM EDT - 10/23/2022 11:59 PM EDT Hospital Encounter [place] [address] Discharge Disposition: Home Social History Tobacco Use [...] with spacer fluticasone propionate (Flonase) 50 mcg/actuation [place], Suspension 1 spray by Each Nare [...] st Contact Info) Description 04/15/2024 10:00 AM [facility] Hospital Encounter [place] [address] Arrived documented as of this [...] on filedocumented in this encounter Care Teams Protein Scientist Relationship Specialty Start Date End Date Lolly Oliveira MD [address] [place] [address] PCP - General 07/17/13 documented as of this encounter
--- OUTSIDE RECORDS SUMMARY | 2024-01-28 11:13 | XMS_ITS | Encounter Summary ---
Author Organization [facility] [place] [address] Care Team Providers Care Mat Tester Name Role Phone Lolly Oliveira MD Primary Care Provider [phone] Encounter Details Date Type Department Care Team [...] AM EST Hospital Encounter [place] [address] Arrived documented as of this encounter Visit Diagnoses Not on filedocumented in this encounter Care Teams Mat Tester Relationship Specialty Start Date End Date Lolly Oliveira MD [address] [place] [address] PCP - General 07/17/13 documented as of this encounter
--- OUTSIDE RECORDS SUMMARY | 2024-01-28 11:13 | XMS_ITS | Encounter Summary ---
Author Organization [facility] [place] [address] Care Team Providers Care Electrician Third Name Role Phone Lolly Oliveira MD Primary Care Provider [phone] Encounter Details Date Type Department Care Team (Latest Contact Info) Description 10/18/2023 10:00 AM EDT - 10/18/2023 11:59 PM EDT Hospital Encounter [place] [phone] Discharge Disposition: Home Social History Tobacco Use [...] with spacer fluticasone propionate (Flonase) 50 mcg/actuation [place], Suspension 1 spray by Each Nare route daily as needed. documented as of this encounter Plan of Treatment Upcoming Encounters Date Type Department Care Team (Late st Contact Info) Description 04/15/2024 10:00 AM EST Hospital Encounter [place] [address] Arrived documented as of this encounter Procedures [...] on filedocumented in this encounter Care Teams Electrician Third Relationship Specialty Start Date End Date Lolly Oliveira MD [address] [place] [address] PCP - General 07/17/13 documented as of this encounter
--- OUTSIDE RECORDS SUMMARY | 2024-01-28 11:13 | XMS_ITS | Encounter Summary ---
Author Organization [facility] Address [address] [place] [address] Care Team Providers Care Electrical And Radio Mechanic Name Role Phone Lolly Oliveira MD Primary Care Provider [phone] Encounter Details Date Type Department Care Team (Late st Contact Info) Description 02/20/2020 Lab Requisition [facility] Pathology & Laboratory Medicine - [address] [id number] Outr Resulting Lab, Provider Social History Tobacco [...] in accordance with CLIA regulations, [employer] (CAP) guidelines (May 25, 2019), and FDA guidance (May 06, 2019). This test is only for use under the Food and Drug Administration's Emergency Use Authorization. Swab ENTIRE NASOPHARYNX / Unknown 02/19/2020 16:30 EST 02/20/2020 16:09 EST us Provider Outr Resulting Lab MICROBIOLOGY - GENER AL ORDERABLES Final Result [facility] [place] * COVID-19 TESTING (02/19/2020 16:30 EST) COVID-19 rt-PCR Result NEGATIVE Negative 02/22/2020 23:41 EST [facility] Comment: 2019-novel Coronavirus (2019-nCoV) not [...] in accordance with CLIA regulations, [employer] (CAP) guidelines (May 25, 2019), and FDA guidance (May 06, 2019). This test is only for use under the Food and Drug Administration's Emergency Use Authorization. Performing Lab [facility] 02/22/2020 23:41 EST [facility] Swab 02/19/2020 16:3 0 EST 02/20/2020 16:09 EST us Provider Outr Resulting Lab MICROBIOLOGY - GENER AL ORDERABLES Final Result [facility] [address] [place] [address] [facility] [place], [place] documented in this encounter Visit Diagnoses Not on filedocumented in this encounter Care Teams Electrical And Radio Mechanic Relationship Specialty Start Date End Date Lolly Oliveira MD [address] [place] [address] PCP - General 11/13/08 documented as of this encounter
--- OUTSIDE RECORDS SUMMARY | 2024-01-28 11:13 | XMS_ITS | Encounter Summary ---
Author Organization [facility] Address [address] [place] [address] Care Team Providers Care Opal Miner Name Role Phone Lolly Oliveira MD Primary Care Provider [phone] Encounter Details Date Type Department Care Team (Late st Contact Info) Description 11/13/2020 Lab Requisition [facility] Pathology & Laboratory Medicine - [address] [address] Outr Resulting Lab, Provider Social History Tobacco [...] GENER AL ORDERABLES Final Result [facility] [address] [place] [address] * COVID-19 TESTING (11/13/2020 7:30 EDT) COVID-19 rt-PCR Result Negative Negative 11/14/2020 11:46 EDT [facility] Comment: This test has [...] performed using the med SARS-CoV-2 assay ([employer] on the Med 6800 System Performing Lab [address] [facility] 11/14/2020 11:46 EDT [facility] Swab 11/13/2020 7:30 EDT 11/13/2020 20:57 EDT us Provider Outr Resulting Lab MICROBIOLOGY - GENER AL ORDERABLES Final Result Performing Organization Address [facility] Co de Phone Number [facility] [address] [place] [address] documented in this encounter Visit Diagnoses Not on filedocumented in this encounter Care Teams Opal Miner Relationship Specialty Start Date End Date Lolly Oliveira MD [address] [place] [address] PCP - General 11/13/08 documented as of this encounter
--- OUTSIDE RECORDS SUMMARY | 2024-01-28 11:13 | XMS_ITS | Encounter Summary ---
Author Organization [facility] Address [facility] [place] [address] Care Team Providers Care Senior Project Accountant Name Role Phone Lolly Oliveira MD Primary Care Provider [phone] Encounter Details Date Type Department Care Team (Late st Contact Info) Description 05/03/2023 Telephone Cardiology at [address] [phone] Lalit Mcmahon MD [facility] [place] [address] Social History Tobacco Use Types Packs/Day Years [...] AM EST Hospital Encounter Non-Invasive [place] [address] Arrived documented as of this encounter Visit Diagnoses Not on filedocumented in this encounter Care Teams Senior Project Accountant Relationship Specialty Start Date End Date Lolly Oliveira MD [address] [place] [address] PCP - General 07/17/13 documented as of this encounter
--- OUTSIDE RECORDS SUMMARY | 2024-01-28 11:13 | XMS_ITS | Encounter Summary ---
Author Organization [facility] Address [address] [place] [address] Care Team Providers Care Business Account Leader Name Role Phone Lolly Oliveira MD Primary Care Provider [phone] Encounter Details Date Type Department Care Team (Late st Contact Info) Description 06/16/2012 Results Only [facility] Laboratory Services - [facility] [address] [place], [place] [id number] Lolly Oliveira MD [address] [place], [place] [id number] Social History Tobacco Use Types Packs/Day Years [...] ? JING ALVARENGA ? Accession #: ? [id number] : ? 1950 (Age: 61) ??F ?Collect [...] ORDERABLES Final Resu lt [facility] [address] [place] [address] documented in this encounter Visit Diagnoses Not on filedocumented in this encounter Care Teams Business Account Leader Relationship Specialty Start Date End Date Lolly Oliveira MD [address] [place] [address] PCP - General 11/13/08 documented as of this encounter
--- OUTSIDE RECORDS SUMMARY | 2024-01-28 11:13 | XMS_ITS | Encounter Summary ---
Author Organization [facility] [place] [address] Care Team Providers Care Plating Tank Operator Name Role Phone Lolly Oliveira MD Primary Care Provider Reason for Visit * Reason Comments Follow-up 8 weeks UVB treatmen t twice weekly Encounter Details Date Type Department Care Team (Late st Contact Info) Description 07/19/2023 11:00 AM EDT Office Visit Dermatology at [address] [phone] Clay Ramírez MD [address], [facility] A DERMATOLOGY [place], [place] [id number] Psoriasis Social History Tobacco Use Types Packs/Day [...] [facility] Hospital Encounter Non[place] [address] Arrived documented as of this encounter Visit Diagnoses Diagnosis Psoriasis Other psoriasis documented in this encounter Care Teams Plating Tank Operator Relationship Specialty Start Date End Date Lolly Oliveira MD [address] [place] [address] PCP - General 07/17/13 documented as of this encounter
--- OUTSIDE RECORDS SUMMARY | 2024-01-28 11:13 | XMS_ITS | Encounter Summary ---
Author Organization [facility] Address [address] [place] [address] Care Team Providers Care Kosher Sealer Name Role Phone Lolly Oliveira MD Primary Care Provider [phone] Encounter Details Date Type Department Care Team (Late st Contact Info) Description 03/06/2003 Results Only [facility] conversion [address] [place] [address] Lolly Oliveira MD [address] [place], [place] [id number] Social History Tobacco Use Types Packs/Day Years [...] ORDERABLES Final Resu lt [facility] [address] [place] [address] documented in this encounter Visit Diagnoses Not on filedocumented in this encounter Care Teams Kosher Sealer Relationship Specialty Start Date End Date Lolly Oliveira MD [address] [place] [address] PCP - General 11/13/08 documented as of this encounter
--- OUTSIDE RECORDS SUMMARY | 2024-01-28 11:13 | XMS_ITS | Encounter Summary ---
Author Organization [facility] Address [address] [place] [address] Care Team Providers Care Online Editor Name Role Phone Unavailable Primary Care Provider Unavailabl e Encounter Details Date Type Department Care Team (Late st Contact Info) Description 11/07/2008 Orders Only [facility] Laboratory Services - [facility] [address] [place] [address] Kenneth Parker MD [address] [place] [id number] Social History Tobacco Use Types Packs/Day Years [...] ? JING ALVARENGA ? Accession #: ? [id number] ? : ? 1950 (Age: 58) ??F [...] ORDERABLES Final Resu lt [facility] [address] [place] [address] documented in this encounter Visit Diagnoses Not on filedocumented in this encounter
--- OUTSIDE RECORDS SUMMARY | 2024-01-28 11:13 | XMS_ITS | Encounter Summary ---
Author Organization [facility] Address [address] [place] [address] Care Team Providers Care Blower And Compressor Assembler Name Role Phone Lolly Oliveira MD Primary Care Provider [phone] Encounter Details Date Type Department Care Team (Late st Contact Info) Description 03/21/2019 Lab Requisition [facility] Pathology & Laboratory Medicine - [address] [address] Unknown, Provider, Social History Tobacco Use Types [...] 211 - 911 pg/mL 03/22/2019 11:52 EST [facility] Blood VENOUS BLOOD / Unknown 03/16/2019 9:25 EST 03/21/2019 21:35 EST us Provider Unknown CHEMISTRY & BLOOD GAS ORDERA BLES Final Result [facility] [address] [place] [address] documented in this encounter Visit Diagnoses Not on filedocumented in this encounter Care Teams Blower And Compressor Assembler Relationship Specialty Start Date End Date Lolly Oliveira MD [address] [place] [address] PCP - General 11/13/08 documented as of this encounter
--- OUTSIDE RECORDS SUMMARY | 2024-01-28 11:13 | XMS_ITS | Encounter Summary ---
Author Organization [facility] Address [address] [place] [address] Care Team Providers Care Mold Repair Technician Name Role Phone Lolly Oliveira MD Primary Care Provider [phone] Encounter Details Date Type Department Care Team (Late st Contact Info) Description 05/29/2002 Results Only [facility] conversion [address] [place] [address] Silvia Diehl, [address] [place] [phone] Social History Tobacco Use Types Packs/Day Years [...] Name: ? LYLEJING ? Accession #: ? [id number] : ? 1950 (Age: 51) ??F ?Collect Date: ? 05/29/2002 Location: ? [facility] ? Receive Date: ? 05/31/2002 Provider: ?SILVIA DIEHL SALES SERVICE EXECUTIVE Copy to: ? Specimen/Source: ?ThinPrep Pap Test, [...] [facility] 05/29/2002 05/31/2002 us Silvia Diehl SALES SERVICE EXECUTIVE PATHOLOGY ORDERABLES Final R esult [facility] [address] [place] [address] documented in this encounter Visit Diagnoses Not on filedocumented in this encounter Care Teams Mold Repair Technician Relationship Specialty Start Date End Date Lolly Oliveira MD [address] [place] [address] PCP - General 11/13/08 documented as of this encounter
--- OUTSIDE RECORDS SUMMARY | 2024-01-28 11:13 | XMS_ITS | Data Portability ---
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 Balance? No [email or web address] Information not available 05/21/2023 Do You Currently Use A Hearing Device? No [email or web address] Information not available 05/21/2023 Do You Currently Have Any Trouble With Your Vision? Yes [email or web address] Information no t available 05/21/2023 Do You Exercise For About 20 Minutes Three Or More Days A Week? Yes- Most Of The Time [email or web address] Information not available 05/21/2023 Are There Any Safety Concerns In Your Home (see Attached [facility] Pamphlet)? No [email or web address] Information not available 05/21/2023 How Often Do You Have Trouble Taking Medicines The Way You Have Been Told To Take Them? I Always Take Them As Prescribed [email or web address] Information not available 05/21/2023 How Confident Are You That You Can Control And Manage Most Of Your Health Problems? Very Confident [email or web address] Information not available 05/21/2023 Do You Currently [...] Other Forms Of Tobacco Or Nicotine? No [email or web address] Information not available 05/21/2023 Sex: Female Functional [...] virus, trivalent, preservative 01/04/2015 completed Not Available [facility] 01/15/2023 04:53:41 Influenza, split virus, quadrivalent, PF 12/21/2018 completed Not Available [facility] 01/15/2023 04:53:41 zoster recombinant 08/30/2018 completed Not Available [facility] 01/15/2023 04:53:42 zoster recombinant 01/26/2018 completed Not Available [facility] 01/15/2023 04:53:42 Influenza, high-dose, quadrivalent, PF 12/04/2020 completed Not Available [facility] 01/15/2023 04:53:43 Influenza, high-dose, quadrivalent, PF 12/11/2019 completed Not Available [facility] 01/15/2023 04:53:43 Influenza, high-dose, quadrivalent, PF 12/29/2021 completed Not Available [facility] 01/15/2023 04:53:43 COVID-19, mRNA, LNP-S, PF, 100 mcg/0.5mL dose or 50 mcg/0.25mL dose 07/09/2021 completed Not Available [facility] 01/15/2023 04:53:43 COVID-19 vaccine, vector-nr, rS-Ad26, PF, 0.5 mL 05/02/2020 completed Not Available [facility] 01/15/2023 04:53:44 SARS-COV-2 (COVID-19) vaccine, UNSPECIFIED 05/31/2020 completed Not Available [facility] 01/15/2023 04:53:44 SARS-COV-2 (COVID-19) vaccine, UNSPECIFIED 01/03/2021 completed Not Available [facility] 01/15/2023 04:53:44 pneumococcal polysaccharide PPV23 07/05/2014 completed Not Available [facility] 2022 04:53:45 Hep B, unspecified formulation 04/14/1993 completed Not Available [facility] 01/15/2023 04:53:45 Hep B, unspecified formulation 09/30/1992 completed Not Available [facility] 01/15/2023 04:53:46 Hep B, unspecified formulation 10/31/1992 completed Not Available [facility] 01/15/2023 04:53:46 influenza, unspecified formulation 12/11/2009 completed Not Available [facility] 01/15/2023 04:53:47 influenza, unspecified formulation 12/13/2012 completed Not Available [facility] 01/15/2023 04:53:47 influenza, unspecified formulation 12/18/2008 completed Not Available [facility] 01/15/2023 04:53:47 influenza, unspecified formulation 12/19/2010 completed Not Available [facility] 01/15/2023 04:53:47 influenza, unspecified formulation 12/30/2006 completed Not Available [facility] 01/15/2023 04:53:48 influenza, unspecified formulation 01/09/2014 completed Not Available [facility] 01/15/2023 04:53:48 influenza, unspecified formulation 01/26/2008 completed Not Available [facility] 01/15/2023 04:53:48 influenza, unspecified formulation 02/16/2012 completed Not Available [facility] 01/15/2023 04:53:48 Influenza, high-dose, quadrivalent, PF 12/17/2022 completed Not Available [facility] 03/19/2023 05:33:03 COVID-19, mRNA, LNP-S, PF, herminio-sucrose, 30 mcg/0.3 mL 12/28/2022 completed Not Available [facility] 03/19/2023 05:33:03 COVID-19, mRNA, LNP-S, bivalent, PF, 50 mcg/0.5 mL or 25mcg/0.25 mL dose 12/01/2023 completed DENYS Bauer, [facility] 12/20/2023 15:23:33 Respiratory syncytial virus (RSV) vaccine, unspecified 12/01/2023 completed DENYS Bauer, [facility] 12/20/2023 15:24:29 influenza, unspecified formulation 12/01/2023 completed DENYS Bauer, [facility] 12/20/2023 15:25:14 Past Encounters Encounter ID Performer Location Encounter Start Date Encounter Closed Date Diagnosis/Indication Diagnosis SNOMED-CT Code Diagnosis ICD10 Code [id number] LOLLY CORTEZ MD [address] [address] 05/21/2023 10:03:54 05/21/2023 11:37:49 Onychomycosis 102955794 B35.1 Asthma 033414635 J45.90 9 Cardiomyopathy 61373862 I10 Disorder of hip joint 42 8608054 M12.859 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 Hyperlipidemia 29494637 E78.5 Vulval and /or perineal noninflammatory disorders 991358415 N90.9 Adult heal th examination 270046279 Z00.00 [id number] [facility] [address] [place] [address] 09/01/2023 10:23:16 09/01/2023 13:28:10 Vertigo 726257534 R42 Impacted c erumen of bilateral ears 4932691042 287007 H61.23 [id number] LOLLY CORTEZ MD [facility] [address] [place] [address] 11/26/2023 07:26:08 11/26/2023 08:10:59 Screening mammography 44391757 Z12.31 Adjustment disorder 1722 6007 F43.20 Asthma 327585129 J45.90 9 Essential hypertension 45550316 I10 Guttate psoriasis 393544 00 L40.4 Cardiomyopathy 46948265 I10 Hyperlipidemia 95994236 E78.5 Prediabetes 409108609 R7 3.03 Health Concerns Section Related Observation LastModified by Organization Detai ls LastModified Time None Recorded Concern Status LastModified by Organization Details LastModified Time None Recorded Advance Directives Directive None Recorded Payers Encounter Date Sequence Insurance Name Policy Number Policy Lema Covered Member ID Lema Member ID Guarantor Name 05/21/2023 1 [place]ANT[place] - [place]PO) [id number] Luna Lunaslin [id number] [place] [address] [place] 09/01/2023 1 [place] - [place]) [id number] Luna E Tiera [id number] [place] 11/26/2023 1 [place] - [place]PO) [id number] Luna E [place] [id number] Luna E [place] Notes Date Note Type Note Provider Name and Address Organization Details Recorded Time 05/21/2023 text/html Thais here today for an annual wellness exam MD [address], [place], [address], [facility]. 05/24/2023 18:32:35 09/01/2023 text/html Luna is [...] it. JESSICA INGRAM PA-C [address], [place], [address], [facility]. 09/01/2023 13:55:07 11/26/2023 text/html Thais here today for follow-up of cardiomyopathy, obesity LOLLY CORTEZ MD [address], [place], [address], [facility]. 11/28/2023 09:26:44 OBGyn Episode No OBEpisode recorded.
--- OUTSIDE RECORDS SUMMARY | 2024-01-28 11:13 | XMS_ITS | Encounter Summary ---
Author Organization [facility] Address [address] [place] [address] Care Team Providers Care Assistant Health Educator Name Role Phone Lolly Oliveira MD Primary Care Provider [phone] Encounter Details Date Type Department Care Team (Late st Contact Info) Description 02/11/2021 Lab Requisition [facility] Pathology & Laboratory Medicine - [address] [id number] Outr Resulting Lab, Provider Social History Tobacco [...] MICROBIOLOGY - GENER AL ORDERABLES Final Result [facility] [address] [place] [address] * COVID-19 TESTING (02/11/2021 8:00 EST) COVID-19 rt-PCR Result Negative Negative 02/12/2021 14:17 EST [facility] Comment: This test has [...] performed using the med SARS-CoV-2 assay ([employer] on the Med 6800 System Performing Lab Med [address] [facility] Lab 02/12/2021 14:17 EST [facility] Swab 02/11/2021 8:00 EST 02/11/2021 22:22 EST us Provider Outr Resulting Lab MICROBIOLOGY - GENER AL ORDERABLES Final Result [facility] [address] [place] [address] documented in this encounter Visit Diagnoses Not on filedocumented in this encounter Care Teams Assistant Health Educator Relationship Specialty Start Date End Date Lolly Oliveira MD [address] [place] [address] PCP - General 11/13/08 documented as of this encounter
--- OUTSIDE RECORDS SUMMARY | 2024-01-28 11:13 | XMS_ITS | Encounter Summary ---
Author Organization [place] [address] Care Team Providers Care Binder And Wrapper Packer Name Role Phone Lolly Oliveira MD Primary Care Provider [phone] Encounter Details Date Type Department Care Team (Late st Contact Info) Description 05/18/2023 Telephone Dermatology at [address] [address] Nora Meredith LPN Social History [...] [facility] Encounter Non[place] [phone] Arrived documented as of this encounter Visit Diagnoses Not on filedocumented in this encounter Care Teams Binder And Wrapper Packer Relationship Specialty Start Date End Date Lolly Oliveira MD [address] [place] [address] PCP - General 07/17/13 documented as of this encounter
--- OUTSIDE RECORDS SUMMARY | 2024-01-28 11:13 | XMS_ITS | Encounter Summary ---
Author Organization [facility] Address [facility] [place] [address] Care Team Providers Care Stock Car Driver Name Role Phone Lolly Oliveira MD Primary Care Provider [phone] Encounter Details Date Type Department Care Team (Late st Contact Info) Description 01/29/2023 Notes Only Cardiology at [address] [address] Merle Lin PA [facility] [place] [address] Social History Tobacco Use Types Packs/Day Years [...] pdf document Date of transmission: 01/29/2023 Device club lounge attendant: BSI Device type: MOTION PICTURE CAMERA OPERATOR-D Presenting rhythm: /RVP/LVP AP 21% Right RN INTENSIVE CARE UNIT 100% Left RN INTENSIVE CARE UNIT: 100% Battery: 10.5 years [employer] Index rising in setting of increasing S3 intensity, increasing respiratory rate, increasing night heart rate, and increasing mean heart rate. MICKEY Villa 01/29/2023 9:06 AM documented in this encounter Plan of Treatment Upcoming Encounters Date Type Department Care Team (Late st Contact Info) Description 04/15/2024 10:00 AM EST Hospital Encounter Non-[place] [address] Arrived documented as of this encounter Visit Diagnoses Not on filedocumented in this encounter Care Teams Stock Car Driver Relationship Specialty Start Date End Date Lolly Oliveira MD [address] [place] [address] PCP - General 07/17/13 documented as of this encounter
--- OUTSIDE RECORDS SUMMARY | 2024-01-28 11:13 | XMS_ITS | Encounter Summary ---
Author Organization [facility] Address [address] [place] [address] Care Team Providers Care Generator Mechanic Name Role Phone Lolly Oliveira MD Primary Care Provider [phone] Encounter Details Date Type Department Care Team (Late st Contact Info) Description 05/27/2021 Lab Requisition [facility] Pathology & Laboratory Medicine - [address] [address] Iman Moran, DO [address] [place], [place] [id number] Encounter for other general examination Social History [...] explore management options, if applicable. 05/30/2021 13:31 [facility] Final Diagnosis A. COLON, POLYP AT 90 CM, BIOPSY/POLYPECTOM Y: - Tubular adenoma. 05/30/2021 13:31 [facility] Attestation By the signature below, the attending physician certifies that they have 1) personally conducted a gross and/or microscopic examination of the described specimen(s), and/or personally interpreted the results of laboratory testing of the described specimen(s), and 2) personally rendered or confirmed the above diagnosis. 05/30/2021 13:31 [facility] at 1331 Clinical History Severe diverticula and polypectomy x1 05/30/2021 13:31 [facility] Gross Description A. Received in formalin labelled with proper patient identification (initials J, K) and colon polyp x1 at 90 cm is a light pineda polypoid tissue measuring 0.2 x 0.2 x 0.2 cm. Submitted intact in A1. MICKEY CARLOS(ASCP) 05/27/2021 19:11 05/30/2021 13:31 [facility] Performing Lab [facility] 05/30/2021 13:31 [facility] Scanned Images 05/30/2021 13:31 [facility] Tissue ENTIRE COLON / Unknown 05/27/2021 11:23 EDT 05/27/2021 16:33 EDT us Iman Moran DO PATHOLOGY ORDERABLES Final Re sult [facility] [address] [place] [address] documented in this encounter Visit Diagnoses Diagnosis Encounter for other general examination documented in this encounter Care Teams Generator Mechanic Relationship Specialty Start Date End Date Lolly Oliveira MD [address] [place] [address] PCP - General 11/13/08 documented as of this encounter
--- OUTSIDE RECORDS SUMMARY | 2024-01-28 11:14 | XMS_ITS | Encounter Summary ---
Author Organization [facility] Address [facility] [address] Care Team Providers Care Director Of Search Engine Optimization Name Role Phone Lolly Oliveira MD Primary Care Provider [phone] Reason for Visit * Auth/Cert (Routine) Specialty Diagnoses / Procedures Referred By Contac t Referred To Contact Diagnoses Left bundle-branch block, unspecified Other cardiomyopathies Left bundle branch block [I44.7]Nonischemic cardiomyopathy [I42.8] Procedures PRG CATH PLMT LEFT HEART CATH & ARTS W/INJ & ANGIO IMG S&I ELECTROPHYSIOLOGY PROCEDURE Lalit Mcmahon MD [address] [place] [address] [facility] Referral ID Status Reason Start Date Expiration Date Visits Re quested Visits Authorized [id number] 1 1 Encounter Details Date Type Department Care Team (Latest Contact Info) Description 07/23/2022 11:39 AM EDT - 07/24/2022 10:23 AM EDT [place] [id number] Lalit Mcmahon MD [address] [place] [address] Left bundle branch block; Nonischemic cardiomyopathy; Cardiac resynchronization therapy defibrillator (GRAB SETTER-D) in place Discharge Disposition: Home Social History [...] Luna Mott Patient Age: 71 y.o. Language: Salvadorean Race: White Ethnicity: Not nor Admit date: 07/23/2022 Discharge date and time: 07/24/22 Attending Physician: Lalit Mcmahon MD Discharge Physician: Lalit Mcmahon MD Follow-up Recommendations for Providers: - s/p GRAB SETTER-D implant - post implant QRS 130 ms [...] Solar lentigo Operations/Major Procedures: 07/23/22: [facility] GRAB SETTER-D implant History of Presentation: 71 y.o. female with a history of HFrEF, LBBB, QRS >150, NYHA II who is POD#1 of GRAB SETTER-D implant ([employer]). Hospital Course: Elective admission for GRAB SETTER-D implant Admitted post-implant for pain management, telemetry [...] (heart failure with reduced ejection fraction) [I50.20] GRAB SETTER-D implant Admission Condition: good Indication for Admission: [...] g Refills: 3 fluticasone propionate 50 mcg/actuation [place], Suspension Commonly known as: Flonase 1 spray [...] incision. Make sure to use a cloth grader (such as a towel) in between the [...] F. The office scheduling phone number is [phone]. ARM MOVEMENT RESTRICTIONS POST-IMPLANT - Do not [...] please call the Cardiac ElectrophysiologyTriage Nurse at [phone], option 3. General Instructions None Discharge References/Attachments [...] incision. Make sure to use a cloth grader (such as a towel) in between the [...] F. The office scheduling phone number is [phone]. ARM MOVEMENT RESTRICTIONS POST-IMPLANT - Do not [...] please call the Cardiac ElectrophysiologyTriage Nurse at [phone], option 3. documented in this encounter Medications [...] with spacer fluticasone propionate (Flonase) 50 mcg/actuation [place], Suspension 1 spray by Each Nare route [...] Cardiac Electrophysiology Post-Implant Device Interrogation Luna Mott [id number] 07/24/2022 History: Luna Mott is a 71 y.o. female with a history of HFrEF, LBBB, QRS >150, NYHA II who is POD#1 of GRAB SETTER-D implant ([employer]). Overall feels well this morning. Ready [...] WOB Neuro- A&Ox3 Device Interrogation: Data ?? Mortgage Lender Model # Serial # Generator [employer] [id number] Atrial Lead [employer] [id number] RV Lead [employer] 0672 [id number] LV Lead [employer] [id number] ?? Diagnostics Pacing Mode: DDD 60-130 Underlying Rhythm: Burt Atrial Episodes: None Ventricular Episodes: None FINAL PROGRAMMING: Pacing: Mode Lower rate (ppm) Upper rate (ppm) ?? DDD 60 130 VF: Rate (bpm) #Antitachycardia pacing First shock energy (J) ?? 200 Quick convert 41 VT: 170 Monitor only Monitor only ? Battery and Leads Impedances (ohms) Sensing (mV) Thresholds HV RA RV LV RA RV LV RA RV LV 73 795 174 0247 (LVa) 7.7 13.1 >25 0.4V @ 0.4 ms 0.4V @ 0.4 ms 0.5 V @ 1.0 ms POD#1 CXR: All leads in nominal positioning Impression: 71 y.o. female who is s/p GRAB SETTER-D implant for LBBB, NYHA II, HFrEF. - [...] ([facility]) Fadi Nunez MD 07/24/2022 Pager: [phone] I met with the patient today and [...] agreement. ? Dr. Lalit Mcmahon, electrophysiology attending ([id number]) * Zaria Wright RN - 07/23/2022 8:28 [...] HF, QRS > 150 ms presents for GRAB SETTER-D placement. ROS: Denies recent fevers or chills [...] Mini-Bag Plus 2 g Intravenous Once Lalit Mcamhon MD ??? sodium chloride 0.9 % (flush) [...] 0.9) flush 5 mL 5 mL Intravenous [id number] ramos MD ??? sodium chloride 0.9 % [...] HF, QRS > 150 ms presents for GRAB SETTER-D placement. Backup would be LBBAP lead. Antibiotics: cefazolin Rationales for, intended benefits and potential risk of planned procedures reviewed. The patient indicated understanding and agreement with the plan. Informed consent signed. Procedure checklist completed. Fadi Nunez MD Cardiac Electrophysiology Fellow [facility] Pager [phone] 07/23/2022 I met with the patient today [...] agreement. ? Dr. Lalit Mcmahon, electrophysiology attending ([id number]) documented in this encounter Miscellaneous Notes * Brief Op Note - Lalit Mcmahon MD - 07/23/2022 4:04 PM EDT Brief Operative Note Patient Name: Luna Mott : [id number] MR#: [id number] Case Date: 07/23/2022 Surgeon: Surgeon(s) and Role: [...] AM EST Hospital Encounter [place] [address] Arrived Scheduled Orders Name Type Priority Associated Diagnoses Orde r Schedule EKG 12 Lead ECG Routine Cardiac resynchronization therapy defibrillator (GRAB SETTER-D) in place One Time for 1 Occurrences [...] (Bezet) 522 ms MUSE SYSTEM Calculated R [place] 78 degrees MUSE SYSTEM Calculated T [place] -71 degrees MUSE SYSTEM INTERPRETATION AV dual-paced [...] who have questions please contact the health youth care worker that requested your imaging first. [...] patients who have questions please contactthe health youth care worker that requested your imaging first. Lalit Mcmahon MD IMG DX ORDERABLES * ELECTROPHYSIOLOGY PROCEDURE (07/23/2022 1:11 PM EDT) Anatomical Region Laterality Modality Other Narrative 07/23/2022 4:24 PM EDT Table formatting from the original result was not included. BIVENTRICULAR ICD IMPLANTATION Redrying Machine Operator: Lalit Mcmahon MD Fellow: Fadi [...] lateral branch of the CS in the LATVIAN view. This branch was cannulated with a [...] the entire procedure. LEAD AND GENERATOR DATA: Mortgage Lender Model # Serial # Generator [employer] [id number] Atrial Lead [employer] [id number] RV Lead [employer] 0672 [id number] LV Lead [employer] [id number] PACE/SENSE DATA: Sensed wave (mV) Threshold (V) [...] (cGycm2) 300 CONCLUSIONS: Successful implantation of a [employer] biventricular ICD for primary prevention and treatment of symptoms related to congestive heart failure. Follow up in EP clinic in 1-2 months. Procedures performed: new ICD system ( cpt 52048-U7); implant LV lead at time of ICD insertion (cpt 70528) I have read, edited and approve of this report: Lalit Mcmahon MD S Cardiac Electrophysiology 07/23/2022 4:22 PM Procedure Note Lalit Mcmahon MD - 07/23/2022 BIVENTRICULAR ICD IMPLANTATION Redrying Machine Operator: Lalit Mcmahon MD Fellow: Fadi Nunze MD Referring physician: Zamzam Boss MD PATIENT [...] appropriate lateralbranch of the CS in the LATVIAN view. This branch was cannulated with a [...] in the entireprocedure. LEAD AND GENERATOR DATA: Mortgage Lender Model # Serial # Generator [employer] [id number] Atrial Lead [employer] [id number] [id number] RV Lead [employer] 0672 [id number] LV Lead [employer] [id number] PACE/SENSE DATA: Sensed wave (mV) Threshold (V) [...] (cGycm2) 300 CONCLUSIONS: Successful implantation of a [employer] biventricular ICD forprimary prevention and treatment of symptoms related to congestive heartfailure. Follow up in EP clinic in 1-2 months. Procedures performed: new ICD system ( cpt 69687-H9); implant LV lead attime of ICD insertion (cpt 88418) I have read, edited and approve of this report: Lalit Mcmahon MD [facility] Cardiac Electrophysiology 07/23/2022 4:22 PM Lalit Mcmahon MD EP PROCEDURE ORDERAB LES * POCT Glucose (07/23/2022 12:54 PM EDT) Glucose, POC 83 65 - 199 mg/dL [facility] Comment: Supplemental ranges: <140 mg/dL before meals <180 mg/dL all other times of the day Blood 07/23/2022 12:5 4 PM EDT 07/23/2022 12:54 PM EDT Lalit Mcmahon MD POINT OF CARE TEST O RDERABLES Performing Organization Address [facility] Co de Phone Number [facility] [place] [address] * EKG 12 Lead (07/23/2022 12:33 PM EDT) Ventricular rate 72 BPM MUSE SYSTEM Atrial Rate 72 BPM MUSE SYSTEM P-R Interval 158 ms MUSE SYSTEM QRS Duration 176 ms MUSE SYSTEM Q-T Interval 458 ms MUSE SYSTEM QTC Calculated (Bezet) 501 ms MUSE SYSTEM Calculated P [place] 34 degrees MUSE SYSTEM Calculated R [place] 12 degrees MUSE SYSTEM Calculated T [place] -173 degrees MUSE SYSTEM INTERPRETATION Normal sinus rhythm Left bundle branch block Abnormal ECG No previous ECGs available Confirmed by MD Salome, Lalit ([id number]) on 07/23/2022 1:19:03 PM MUSE SYSTEM 07/23/2022 12:3 3 PM EDT 07/23/2022 1:19 PM EDT Lalit Mcmahon MD ECG ORDERABLES Performing Organization Address [facility] de Phone Number MUSE SYSTEM * Differential, Automated (07/23/2022 11:55 AM EDT) Neutrophil % 62.6 % [facility] Neutrophil Absolute 4.14 1.70 - 6.10 x10(3)/[facility] LAB[facility] Lymph % 27.0 % [facility] Lymphocytes Abs 1.8 0.9 - 3.2 x10(3)/[facility] Monocyte % 7.3 % [facility] Monocyte Abs 0.5 0.3 - 0.9 x10(3)/[facility] Eos % 2.3 % [facility] Eosinophils Abs 0.2 0.0 - 0.4 x10(3)/[facility] LAB[facility] Basophil % 0.6 % [facility] IT[facility] Baso Absolute 0.0 0.0 - 0.1 x10(3)/[facility] Immature Gran % 0.20 % [facility] Comment: Immature granulocytes(IG's)percentage and absolute count will include metamyelocytes, myelocytes, and promyelocytes. Blood smears from CBCs yielding IG's will be scanned manually for concordance. If this scan disagrees with the automated IG or if promyelocytes are noted, a manual differential will be performed. Immature Gran Absolute 0.01 0.00 - 0.04 x10(3)/[facility] Blood 07/23/2022 11:5 5 AM EDT 07/23/2022 12:07 PM EDT Narrative Resulting Agency Comment Spec In Lab Lalit Mcmahon MD HEMATOLOGY ORDERABLE S [facility] [place] [address] * Hemogram (07/23/2022 11:55 AM EDT) White Blood Cell 6.6 4.0 - 9.5 x10(3)/[facility] Red Blood Cell 4.50 4.00 - 5.21 x10(6)/[facility] Hemoglobin 13.7 11.7 - 15.5 g/dL [facility] Hematocrit 42.5 35.7 - 45.8 % [facility] Mean Cell Volume 94.4 82.6 - 94.4 fL [facility] Mean Cell Hemoglobin 30.4 27.1 - 32.0 pg [facility] Mean Cell Hemoglobin Concentration 32.2 31.7 - 35.0 g/dL [facility] Platelet 193 145 - 357 x10(3)/[facility] RDW Standard Deviation 45.5 37.0 - 46.0 fL [facility] RDW coefficient of variation 13.2 11.5 - 14.1 % [facility] Mean Platelet Volume 9.5 7.6 - 12.9 fL [facility] NRBC% auto 0.0 % [facility] NRBC Absolute 0.000 0.000 - 0.000 x10(3)/mcL [facility] Blood 07/23/2022 11:5 5 AM EDT 07/23/2022 12:07 PM EDT Narrative Resulting Agency Comment Spec In Lab Lalit Mcmahon MD HEMATOLOGY ORDERABLE S [facility] [place] [address] * (ABNORMAL) BMP w/fasting Glucose (07/23/2022 11:55 AM EDT) Glucose Fasting 110(H) 65 - 99 mg/dL [facility] Comment: ?Fasting* Glucose Interpretive Criteria [...] of Diabetes Mellitus, Position Statement from the [employer] Diabetes Association. ??Diabetes Care, Volume 33, Supplement 1, Mar 2009 Blood Urea Nitrogen 23(H) 8 - 18 mg/dL [facility] Creatinine 1.07 0.70 - 1.20 mg/dL [facility] Sodium 141 135 - 145 mmol/L [facility] Potassium 4.8 3.5 - 5.0 mmol/L [facility] Comment: Please note: ??Patients with WBC >100,000 may have falsely elevated Potassium levels. ??For accurate Potassium quantification in these patients send serum separator tube (gold top) for subsequent determinations. ??Contact the Clinical Chemistry Laboratory if there are any questions. Chloride 106 98 - 107 mmol/L [facility] Carbon Dioxide 26 22 - 31 mmol/L [facility] Anion Gap 9 5 - 15 mmol/L [facility] Calcium 9.7 8.5 - 10.5 mg/dL [facility] Est Glomerular Filtration Rate 55(L) >=60 mL/min/1. 73 m?? [facility] Comment: This patient's estimated GFR [...] MD CHEMISTRY ORDERABLES Performing Organization Address [facility] Co de Phone Number [facility] [place] [address] * Prothrombin Time (07/23/2022 11:55 AM EDT) Prothrombin Time 11.7 9.4 - 12.5 sec [facility] International Normalization Ratio 1.0 [facility] Comment: An INR <2.0 indicates [...] Performing Organization Address City/[facility] Co de Phone Number [facility] [place] [address] documented in this encounter Visit Diagnoses Diagnosis HFrEF (heart failure with reduced ejection fraction)- Primary Left bundle branch block Other left bundle branch block Nonischemic cardiomyopathy Other primary cardiomyopathies Cardiac resynchronization therapy defibrillator (GRAB SETTER-D) in place Left bundle branch block Other [...] in this encounter Care Teams Director Of Search Engine Optimization Relationship Specialty Start Date End Date Lolly Oliveira MD [address] [place] [address] PCP - General 07/17/13 documented as of this encounter
--- OUTSIDE RECORDS SUMMARY | 2024-01-28 11:14 | XMS_ITS | Encounter Summary ---
[place] [address] Care Team Providers Care Account Advisor Name Role Phone Lolly Oliveira MD Primary Care Provider [phone] Encounter Details Date Type Department Care Team (Late st Contact Info) Description 07/17/2013 [place] [phone] Lolly Oliveira MD [address] [place], [place] [id number] Social History Tobacco Use Types Packs/Day Years [...] AM EST Hospital Encounter Non-[place] [address] Arrived documented as of this encounter Procedures [...] (PERFORMED ON 07/06/13 AND 07/14/13) FROM [facility] DATED 07/17/13: ?? DIAGNOSTIC IMAGING SUMMARY: ?? [...] MAMMOGRAMS (PERFORMED ON 07/06/13 AND 07/14/13) [facility] DATED 07/17/13: DIAGNOSTIC IMAGING SUMMARY: RIGHT [...] filedocumented in this encounter Care Teams Account Advisor Relationship Specialty Start Date End Date Lolly Oliveira MD [address] [place] [address] PCP - General 07/17/13 documented as of this encounter
--- OUTSIDE RECORDS SUMMARY | 2024-01-28 11:14 | XMS_ITS | Encounter Summary ---
Author Organization Counts Include [facility] [address] Care Team Providers Care Marine Scientist Name Role Phone Lolly Oliveira MD Primary Care Provider [phone] Reason for Visit * Reason Comments Skin Check Encounter Details Date Type Department Care Team (Late st Contact Info) Description 11/23/2014 10:00 AM EDT Office Visit Dermatology at [address] [address] Clay Ramírez MD [address] [facility] [place] [address] Dermatofibroma; Nevus; Solar lentigo Discharge Disposition: Home [...] st Contact Info) Description 04/15/2024 10:00 AM [facility] Hospital Encounter [place] [address] Arrived documented as of this encounter Visit Diagnoses Diagnosis Dermatofibroma Benign neoplasm of skin, site unspecified Nevus Benign neoplasm of skin, site unspecified Solar lentigo Other dyschromia documented in this encounter Care Teams Marine Scientist Relationship Specialty Start Date End Date Lolly Oliveira MD [address] [place] [address] PCP - General 07/17/13 documented as of this encounter
--- OUTSIDE RECORDS SUMMARY | 2024-01-28 11:14 | XMS_ITS | Encounter Summary ---
[place] [address] Care Team Providers Care Transformer Assembly Supervisor Name Role Phone Lolly Oliveira MD Primary Care Provider [phone] Encounter Details Date Type Department Care Team (Late st Contact Info) Description 04/09/2022 Refill Dermatology at [address] [address] Nora Meredith, SALES AND BUSINESS DEVELOPMENT MANAGER Social History Tobacco Use Types Packs/Day Years Used Date Smoking Tobacco: Never Sex and Gender Information Value Date Recorded Sex Assigned at Not on file Gender Identity Not on file Sexual Orientation Not on file documented as of this encounter Plan of Treatment Upcoming Encounters Date Type Department Care Team (Late st Contact Info) Description 04/15/2024 10:00 AM [facility] Hospital Encounter [place] [address] Arrived documented as of this encounter Visit Diagnoses Not on filedocumented in this encounter Care Teams Transformer Assembly Supervisor Relationship Specialty Start Date End Date Lolly Oliveira MD [address] [place] [address] PCP - General 07/17/13 documented as of this encounter
--- OUTSIDE RECORDS SUMMARY | 2024-01-28 11:14 | XMS_ITS | Encounter Summary ---
[place] [address] Care Team Providers Care Experimental Preflight Mechanic Name Role Phone Lolly Oliveira MD Primary Care Provider [phone] Encounter Details Date Type Department Care Team [...] AM EST Hospital Encounter Non-Invasive [place] [address] Arrived documented as of this encounter Visit Diagnoses Not on filedocumented in this encounter Care Teams Experimental Preflight Mechanic Relationship Specialty Start Date End Date Lolly Oliveira MD [address] [place] [address] PCP - General 07/17/13 documented as of this encounter
--- OUTSIDE RECORDS SUMMARY | 2024-01-28 11:14 | XMS_ITS | Encounter Summary ---
Author Organization [facility] [place] [address] Care Team Providers Care Career Guidance Counselor Name Role Phone Lolly Oliveira MD Primary Care Provider [phone] Reason for Visit * Reason Comments Psoriasis Encounter Details Date Type Department Care Team (Late st Contact Info) Description 04/09/2022 1:45 PM EST Office Visit Dermatology at [address] [address] Clay Ramírez MD [address] [facility] [place] [address] Psoriasis, guttate Social History Tobacco Use Types [...] AM EST Hospital Encounter Non-[place]vasive [place] [address] Arrived documented as of this encounter Visit Diagnoses Diagnosis Psoriasis, guttate Other psoriasis documented in this encounter Care Teams Career Guidance Counselor Relationship Specialty Start Date End Date Lolly Oliveira MD [address] [place] [address] PCP - General 07/17/13 documented as of this encounter
--- OUTSIDE RECORDS SUMMARY | 2024-01-28 11:14 | XMS_ITS | Encounter Summary ---
Author Organization [facility] [place] [address] Care Team Providers Care Digital Business Analyst Name Role Phone Lolly Oliveira MD Primary Care Provider [phone] Encounter Details Date Type Department Care Team (Latest Contact Info) Description 07/26/2013 9:45 AM EDT - 07/26/2013 11:59 PM EDT Hospital [place] [address] Mammographic microcalcification Social History Tobacco Use Types [...] AM EST Hospital Encounter Non-Invasive [place] [address] Arrived documented as of this encounter Procedures [...] radial sclerosing lesion completely excised Procedure Note Eelno Christian MD - 07/28/2013 [facility] [...] documented in this encounter Care Teams Digital Business Analyst Relationship Specialty Start Date End Date Lolly Oliveira MD [address] [place] [address] PCP - General 07/17/13 documented as of this encounter
--- OUTSIDE RECORDS SUMMARY | 2024-01-28 11:14 | XMS_ITS | Encounter Summary ---
Author Organization [facility] [place] [address] Care Team Providers Care Observer Gravity Prospecting Name Role Phone Lolly Oliveira MD Primary Care Provider [phone] Encounter Details Date Type Department Care Team (Late st Contact Info) Description 10/09/2021 Telephone Dermatology at [address] [address] Nora Meredith LPN Social [...] st Contact Info) Description 04/15/2024 10:00 AM [facility] Hospital Encounter Non-[place] [address] Arrived documented as of this encounter Visit Diagnoses Not on filedocumented in this encounter Care Teams Observer Gravity Prospecting Relationship Specialty Start Date End Date Lolly Oliveira MD [address] [place] [address] PCP - General 07/17/13 documented as of this encounter
--- OUTSIDE RECORDS SUMMARY | 2024-01-28 11:14 | XMS_ITS | Encounter Summary ---
Author Organization [facility] [place] [address] Care Team Providers Care Facilities Officer Name Role Phone Unavailable Primary Care Provider Unavailabl e Encounter Details Date Type Department Care Team (Late st Contact Info) Description 07/14/2013 External Results XRay at [address] [place] [address] Provider, Scanning Social History Tobacco Use Types [...] Hospital Encounter Non-Invasive Cardiology Lab [facility] [place] [address] Arrived documented as of this encounter Procedures [...]
--- OUTSIDE RECORDS SUMMARY | 2024-01-28 11:14 | XMS_ITS | Encounter Summary ---
Author Organization [facility] [place] [address] Care Team Providers Care Packing Attendant Name Role Phone Lolly Oliveira MD Primary Care Provider Reason for Referral * Diagnostic Test (Routine) - Closed Specialty Diagnoses / Procedures Referred By Contac t Referred To Contact Radiology Diagnoses Left bundle branch block Nonischemic cardiomyopathy Procedures MRI Cardiac Morphology Function With Flow Velocity Quantification [facility] Contrast MRI Cardiac Morphology Function wwo Contrast Lalit Mcmahon MD [facility] [place] [address] [place] [address] Referral ID Status Reason Start Date Expiration Date V isits Requested Visits Authorized [id number] Closed Specialty Service Requested 05/06/2022 11/07/2023 2 1 Reason for Visit * Diagnostic Test (Routine) - Closed Specialty Diagnoses / Procedures Referred By Contac t Referred To Contact Radiology Diagnoses Left bundle branch block Nonischemic cardiomyopathy Procedures MRI Cardiac Morphology Function With Flow Velocity Quantification o Contrast MRI Cardiac Morphology Function wwo Contrast Lalit Mcmahon MD [facility] [place] [address] [place] [address] Referral ID Status Reason Start Date Expiration Date V isits Requested Visits Authorized [id number] Closed Specialty Service Requested 05/06/2022 11/07/2023 2 1 Encounter Details Date Type Department Care Team (Latest Contact Info) Description 07/14/2022 9:08 AM EDT Hospital Encounter MRI at [facility] [phone] Lalit Mcmahon MD [facility] [address] [place] [address] Left bundle branch block; Nonischemic cardiomyopathy Discharge [...] with spacer fluticasone propionate (Flonase) 50 mcg/actuation [place], Suspension 1 spray by Each Nare route [...] [address] [facility] [address] Female [phone] (home) No relevant phone numbers on file. Lolly Oliveira MD None Allergies Allergen Reactions ??? Sulfa (Sulfonamide Antibiotics) Date/Time of call: July 07, 2022/11:03 AM/ PREVIOUS MRI SCAN? HEIGHT: WEIGHT: SCHEDULED SCAN: MRI CARDIAC MORPHOLOGY FUNCTION WITH FLOW VELOCITY QUANTIFICATION WWO CONTRAST [[id number]] Order Questions Answers Where will study be performed? [facility] Radiology [120] SUBJECTIVE: Very Claustrophobic CAN [...] ( KV ) You must have a rolloff truck driver present when you check in. This patient has been informed that they require a rolloff truck driver to drive them home after this procedure. In the absence of a rolloff truck driver, IR will not be able to sedate for your scan. Pt verbalized understanding of these instructions during the pre-procedure education via phone. Yes Name of rolloff truck driver: Daughter Phone number: PRIOR SCAN DATE/S SEDATION TYPE SUCCESSFUL 07/14/22 MRI Cardiac Morphology Function with Flow Velocity Quantification wwo Contrast Ativan 1mg x 1 dose Pass Revised 08/03/17 documented in this encounter Plan of Treatment Upcoming Encounters Date Type Department Care Team (Late st Contact Info) Description 04/15/2024 10:00 AM [facility] Hospital Encounter [place] [address] Arrived documented as of this encounter Procedures [...] have questions please contact the health family day care provider that requested your imaging [...] who have questions please contactthe health family day care provider that requested your imaging [...] mg documented in this encounter Care Teams Packing Attendant Relationship Specialty Start Date End Date Lolly Oliveira MD [address] [place] [address] PCP - General 07/17/13 documented as of this encounter
--- OUTSIDE RECORDS SUMMARY | 2024-01-28 11:14 | XMS_ITS | Encounter Summary ---
Author Organization [facility] [place] [address] Care Team Providers Care Infrastructure Manager Name Role Phone Lolly Oliveira MD Primary Care Provider [phone] Reason for Visit * Reason Comments Follow-up Encounter Details Date Type Department Care Team (Late st Contact Info) Description 07/02/2022 8:00 AM EDT Office Visit Dermatology at [address] [phone] Clay Ramírez MD [address] [facility], [place] [address] Psoriasis, guttate Social History Tobacco Use Types [...] st Contact Info) Description 04/15/2024 10:00 AM [facility] Hospital Encounter [place] [address] Arrived documented as of this encounter Visit Diagnoses Diagnosis Psoriasis, guttate Other psoriasis documented in this encounter Care Teams Infrastructure Manager Relationship Specialty Start Date End Date Lolly Oliveira MD [address] [place] [address] PCP - General 07/17/13 documented as of this encounter
--- OUTSIDE RECORDS SUMMARY | 2024-01-28 11:14 | XMS_ITS | Encounter Summary ---
Author Organization [facility] Address [facility] [place] [address] Care Team Providers Care Slat Twister Name Role Phone Lolly Oliveira MD Primary Care Provider [phone] Encounter Details Date Type Department Care Team (Late st Contact Info) Description 07/16/2022 Telephone Cardiology at [address] [phone] Lalti Mcmahon MD [facility] [place] [address] Social History Tobacco Use Types Packs/Day Years [...] her nonischemic cardiomyopathy. She is scheduled for FLYING I INSTRUCTOR-D implantation next week and looks forward to the procedure. We will see each other next week. Lalit Mcmahon MD [facility] Cardiac Electrophysiology 07/16/2022 8:52 AM documented in this encounter Plan of Treatment Upcoming Encounters Date Type Department Care Team (Late st Contact Info) Description 04/15/2024 10:00 AM EST Hospital Encounter Non-Invasive [place] [address] Arrived documented as of this encounter Visit Diagnoses Not on filedocumented in this encounter Care Teams Slat Twister Relationship Specialty Start Date End Date Lolly Oliveira MD [address] [place] [address] PCP - General 07/17/13 documented as of this encounter
--- OUTSIDE RECORDS SUMMARY | 2024-01-28 11:14 | XMS_ITS | Encounter Summary ---
Author Organization [facility] [place] [address] Care Team Providers Care Power Cutting Machine Operator Name Role Phone Lolly Oliveira MD Primary Care Provider [phone] Encounter Details Date Type Department Care Team (Late st Contact Info) Description 07/26/2013 Orders [place] [phone] Eleno Christian MD [facility] [place] [address] Social History Tobacco Use Types Packs/Day Years [...] AM EST Hospital Encounter Non-[place] [address] Arrived documented as of this encounter Visit Diagnoses Not on filedocumented in this encounter Care Teams Power Cutting Machine Operator Relationship Specialty Start Date End Date Lolly Oliveira MD [address] [place] [address] PCP - General 07/17/13 documented as of this encounter
--- OUTSIDE RECORDS SUMMARY | 2024-01-28 11:14 | XMS_ITS | Encounter Summary ---
Author Organization [facility] [place] [address] Care Team Providers Care Licensed Customs Broker Name Role Phone Lolly Oliveira MD Primary Care Provider [phone] Encounter Details Date Type Department Care Team (Late st Contact Info) Description 06/29/2011 Orders [place] [phone] Eleno Christian MD [facility] [place] [address] Social History Tobacco Use Types Packs/Day Years [...] Hospital Encounter Non-[place] [phone] Arrived documented as of this encounter Procedures [...] a Non-reportable exam Eleno Christian MD [facility] FILM [facility]RARY ORD ERABLES documented in this encounter Visit Diagnoses Not on filedocumented in this encounter Care Teams Licensed Customs Broker Relationship Specialty Start Date End Date Lolly Oliveira MD [address] [place] [address] PCP - General 07/17/13 documented as of this encounter
--- OUTSIDE RECORDS SUMMARY | 2024-01-28 11:14 | XMS_ITS | Encounter Summary ---
Author Organization [facility] [place] [address] Care Team Providers Care Society Editor Name Role Phone Lolly Oliveira MD Primary Care Provider [phone] Reason for Visit * Auth/Cert (Routine) Specialty Diagnoses / Procedures Referred By Contac t Referred To Contact Diagnoses Left bundle-branch block, unspecified Other cardiomyopathies Left bundle branch block [I44.7]Nonischemic cardiomyopathy [I42.8] Procedures PRG CATH PLMT LEFT HEART CATH & ARTS W/INJ & ANGIO IMG S&I ELECTROPHYSIOLOGY PROCEDURE Lalit Mcmahon MD [facility] [place] [address] [facility] Referral ID Status Reason Start Date Expiration Date Visits Re quested Visits Authorized [id number] 1 1 Encounter Details Date Type Department Care Team (Late st Contact Info) Description 07/23/2022 1:00 PM EDT - 07/23/2022 5:30 PM EDT Surgery [place] [address] Lalit Mcmahon MD [facility] [place] [address] ELECTROPHYSIOLOGY PROCEDURE Social History Tobacco Use Types Packs/Day Years Used Date Smoking Tobacco: Never Tobacco Cessation:Counseling Given: Not Answered Alcohol Use Standard Drinks/Week Comments Not Currently 0 (1 standard drink = 0.6 oz pur e alcohol) COUNT INCLUDES THE [facility] Inpatient Questions Answer Date Recorded [...] MD Follow-up Recommendations for Providers: - s/p DIRECTOR OF EPIDEMIOLOGY-D implant - post implant QRS 130 ms [...] Nevus ??? Solar lentigo Operations/Major Procedures: 07/23/22: [facility] DIRECTOR OF EPIDEMIOLOGY-D implant History of Presentation: 71 y.o. female with a history of HFrEF, LBBB, QRS >150, NYHA II who is POD#1 of DIRECTOR OF EPIDEMIOLOGY-D implant ([employer]). Hospital Course: Elective admission for DIRECTOR OF EPIDEMIOLOGY-D implant Admitted post-implant for pain management, telemetry [...] (heart failure with reduced ejection fraction) [I50.20] DIRECTOR OF EPIDEMIOLOGY-D implant Admission Condition: good Indication for Admission: [...] g Refills: 3 fluticasone propionate 50 mcg/actuation [place], Suspension Commonly known as: Flonase 1 spray [...] the incision. Make sure to use a quality cloth tester (such as a towel) in between [...] F. The office scheduling phone number is [phone]. ARM MOVEMENT RESTRICTIONS POST-IMPLANT - Do not [...] please call the Cardiac ElectrophysiologyTriage Nurse at [phone], option 3. General Instructions None Discharge References/Attachments None Lalit Mcmahon MD S Cardiac Electrophysiology 07/24/2022 12:33 PM documented in this encounter Discharge Instructions * Patient Instructions* Fadi Nunez MD - 07/24/2022 8:10 AM EDT FINAL ICD/PACEMAKER RECOMMENDATIONS: 1. Standard post implant discharge instructions (see below): 2. Medications as listed above. You may use ice packs over the incision. Make sure to use a quality cloth tester (such as a towel) in between [...] F. The office scheduling phone number is [phone]. ARM MOVEMENT RESTRICTIONS POST-IMPLANT - Do not [...] please call the Cardiac ElectrophysiologyTriage Nurse at [phone], option 3. documented in this encounter Medications [...] with spacer fluticasone propionate (Flonase) 50 mcg/actuation [place], Suspension 1 spray by Each Nare route [...] Cardiac Electrophysiology Post-Implant Device Interrogation Luna Mott [id number] 07/24/2022 History: Luna Mott is a 71 y.o. female with a history of HFrEF, LBBB, QRS >150, NYHA II who is POD#1 of DIRECTOR OF EPIDEMIOLOGY-D implant ([employer]). Overall feels well this morning. Ready [...] WOB Neuro- A&Ox3 Device Interrogation: Data ?? Clamp Jig Assembler Model # Serial # Generator [employer] [id number] Atrial Lead [employer] [id number] [id number] RV Lead [employer] [id number] [id number] LV Lead [employer] [id number] ?? Diagnostics Pacing Mode: DDD 60-130 Underlying Rhythm: [place] Atrial Episodes: None Ventricular Episodes: None FINAL PROGRAMMING: Pacing: Mode Lower rate (ppm) Upper rate (ppm) ?? DDD 60 130 VF: Rate (bpm) #Antitachycardia pacing First shock energy (J) ?? 200 Quick convert 41 VT: 170 Monitor only Monitor only ? Battery and Leads Impedances (ohms) Sensing (mV) Thresholds HV RA RV LV RA RV LV RA RV LV 73 835 593 2416 (LVa) 7.7 13.1 >25 0.4V @ 0.4 ms 0.4V @ 0.4 ms 0.5 V @ 1.0 ms POD#1 CXR: All leads in nominal positioning Impression: 71 y.o. female who is s/p DIRECTOR OF EPIDEMIOLOGY-D implant for LBBB, NYHA II, HFrEF. - [...] [facility]) Fadi Nunez MD 07/24/2022 Pager: [phone] I met with the patient today and [...] agreement. ? Dr. Lalit Mcmahon, electrophysiology attending ([id number]) * Zaria Wright RN - 07/23/2022 8:28 [...] HF, QRS > 150 ms presents for DIRECTOR OF EPIDEMIOLOGY-D placement. ROS: Denies recent fevers or chills [...] 0.9) flush 5 mL 5 mL Intravenous [id number] ramos MD ??? sodium chloride 0.9 % [...] HF, QRS > 150 ms presents for DIRECTOR OF EPIDEMIOLOGY-D placement. Backup would be LBBAP lead. Antibiotics: cefazolin Rationales for, intended benefits and potential risk of planned procedures reviewed. The patient indicated understanding and agreement with the plan. Informed consent signed. Procedure checklist completed. Fadi Nunez MD Cardiac Electrophysiology Fellow [facility] Pager [phone] 07/23/2022 I met with the patient today [...] agreement. ? Dr. Lalit Mcmahon, electrophysiology attending ([id number]) documented in this encounter Miscellaneous Notes * Brief Op Note - Lalit Mcmahon MD - 07/23/2022 4:04 PM EDT Brief Operative Note Patient Name: Luna Mott : [id number] MR#: [id number] Case Date: 07/23/2022 Surgeon: Surgeon(s) and Role: [...] EST Hospital Encounter Non-Invasive [place] [address] Arrived Scheduled Orders Name Type Priority Associated Diagnoses Orde r Schedule EKG 12 Lead ECG Routine Cardiac resynchronization therapy defibrillator (DIRECTOR OF EPIDEMIOLOGY-D) in place One Time for 1 Occurrences [...] (Bezet) 522 ms MUSE SYSTEM Calculated R [place] 78 degrees MUSE SYSTEM Calculated T [place] -71 degrees MUSE SYSTEM INTERPRETATION AV dual-paced [...] ? Electronically signed by: Kwame Vargas MD, [facility] ([phone]), at 07/24/2022 6:43 AM Narrative 07/24/2022 6:43 [...] services director that requested your imaging first. Electronically signed by: Kwame Vargas MD, [facility]([phone]), at 07/24/2022 6:43 AM Lalit Mcmahon MD IMG DX ORDERABLES * ELECTROPHYSIOLOGY PROCEDURE (07/23/2022 1:11 PM EDT) Anatomical Region Laterality Modality Other Narrative 07/23/2022 4:24 PM EDT Table formatting from the original result was not included. BIVENTRICULAR ICD IMPLANTATION Flight Operation Coordinator: Lalit Mcmahon MD Fellow: Fadi Nunez MD [...] lateral branch of the CS in the TURKISH view. This branch was cannulated with a [...] the entire procedure. LEAD AND GENERATOR DATA: Clamp Jig Assembler Model # Serial # Generator [employer] [id number] Atrial Lead [employer] [id number] [id number] RV Lead [employer] [id number] [id number] LV Lead [employer] [id number] PACE/SENSE DATA: Sensed wave (mV) Threshold (V) [...] (cGycm2) 300 CONCLUSIONS: Successful implantation of a [employer] biventricular ICD for primary prevention and treatment of symptoms related to congestive heart failure. Follow up in EP clinic in 1-2 months. Procedures performed: new ICD system ( cpt 66686-N0); implant LV lead at time of ICD insertion (cpt 30017) I have read, edited and approve of this report: Lalit Mcmahon MD [facility] Cardiac Electrophysiology 07/23/2022 4:22 PM Procedure Note Lalit Mcmahon MD - 07/23/2022 BIVENTRICULAR ICD IMPLANTATION Flight Operation Coordinator: Lalit Mcmahon MD Fellow: Fadi Nunez MD [...] appropriate lateralbranch of the CS in the TURKISH view. This branch was cannulated with a [...] in the entireprocedure. LEAD AND GENERATOR DATA: Clamp Jig Assembler Model # Serial # Generator [employer] [id number] Atrial Lead [employer] 7841 [id number] RV Lead [employer] 0672 [id number] LV Lead [employer] 4674 [id number] PACE/SENSE DATA: Sensed wave (mV) Threshold (V) [...] (cGycm2) 300 CONCLUSIONS: Successful implantation of a [employer] biventricular ICD forprimary prevention and treatment of symptoms related to congestive heartfailure. Follow up in EP clinic in 1-2 months. Procedures performed: new ICD system ( cpt 44536-X7); implant LV lead attime of ICD insertion (cpt 82009) I have read, edited and approve of this report: Lalit Mcmahon MD S Cardiac Electrophysiology 07/23/2022 4:22 PM Lalit Mcmahon MD EP PROCEDURE ORDERAB LES * POCT Glucose (07/23/2022 12:54 PM EDT) [facility] Signature Glucose, POC 83 65 - 199 mg/dL [facility] Comment: Supplemental ranges: <140 mg/dL before meals <180 mg/dL all other times of the day Blood 07/23/2022 12:5 4 PM EDT 07/23/2022 12:54 PM EDT Lalit Mcmahon MD POINT OF CARE TEST O RDERABLES Performing Organization Address City/[facility]/ZIP Co de Phone Number [facility] [place] [address] * EKG 12 Lead (07/23/2022 12:33 PM EDT) Ventricular rate 72 BPM MUSE SYSTEM Atrial Rate 72 BPM MUSE SYSTEM P-R Interval 158 ms MUSE SYSTEM QRS Duration 176 ms MUSE SYSTEM Q-T Interval 458 ms MUSE SYSTEM QTC Calculated (Bezet) 501 ms MUSE SYSTEM Calculated P [place] 34 degrees MUSE SYSTEM Calculated R [place] 12 degrees MUSE SYSTEM Calculated T [place] -173 degrees MUSE SYSTEM INTERPRETATION Normal sinus rhythm Left bundle branch block Abnormal ECG No previous ECGs available Confirmed by MD Salome, Lalit ([id number]) on 07/23/2022 1:19:03 PM MUSE SYSTEM 07/23/2022 12:3 3 PM EDT 07/23/2022 1:19 PM EDT Lalit Mcmahon MD ECG ORDERABLES Performing Organization Address [facility]/ZIP Co de Phone Number MUSE SYSTEM * Differential, Automated (07/23/2022 11:55 AM EDT) Neutrophil % 62.6 % [facility] Neutrophil Absolute 4.14 1.70 - 6.10 x10(3)/[facility] Lymph % 27.0 % [facility] Lymphocytes Abs 1.8 0.9 - 3.2 x10(3)/[facility] Monocyte % 7.3 % [facility] Monocyte Abs 0.5 0.3 - 0.9 x10(3)/[facility] Eos % 2.3 % [facility] Eosinophils Abs 0.2 0.0 - 0.4 x10(3)/[facility] Basophil % 0.6 % [facility] Baso Absolute 0.0 0.0 - 0.1 x10(3)/[facility] Immature Gran % 0.20 % [facility] Comment: Immature granulocytes(IG's)percentage and [...] Lalit Mcmahon MD HEMATOLOGY ORDERABLE S [facility] [place] [place] [address] * Hemogram (07/23/2022 11:55 AM EDT) White Blood Cell 6.6 4.0 - 9.5 x10(3)/[facility] Red Blood Cell 4.50 4.00 - 5.21 x10(6)/[facility] Hemoglobin 13.7 11.7 - 15.5 g/dL [facility] Hematocrit 42.5 35.7 - 45.8 % [facility] Mean Cell Volume 94.4 82.6 - 94.4 fL [facility] Mean Cell Hemoglobin 30.4 27.1 - 32.0 pg [facility] Mean Cell Hemoglobin Concentration 32.2 31.7 - 35.0 g/dL [facility] Platelet 193 145 - 357 x10(3)/[facility] RDW Standard Deviation 45.5 37.0 - 46.0 fL [facility] RDW coefficient of variation 13.2 11.5 - 14.1 % [facility] Mean Platelet Volume 9.5 7.6 - 12.9 fL [facility] NRBC% auto 0.0 % [facility] ITAL [facility] NRBC Absolute 0.000 0.000 - 0.000 x10(3)/[facility] Blood 07/23/2022 11:5 5 AM EDT 07/23/2022 12:07 PM EDT Narrative Resulting Agency Comment Spec In Lab Lalit Mcmahon MD HEMATOLOGY ORDERABLE S [facility] [place] [address] * (ABNORMAL) BMP w/fasting Glucose (07/23/2022 11:55 AM EDT) Glucose Fasting 110(H) 65 - 99 mg/dL [facility] Comment: ?Fasting* Glucose Interpretive [...] of Diabetes Mellitus, Position Statement from the [place] [employer]. ??Diabetes Care, Volume 33, Supplement 1, Mar 2009 Blood Urea Nitrogen 23(H) 8 - 18 mg/dL [facility] Creatinine 1.07 0.70 - 1.20 mg/dL [facility] Sodium 141 135 - 145 mmol/L [facility] Potassium 4.8 3.5 - 5.0 mmol/L [facility] Comment: Please note: ??Patients [...] Gap 9 5 - 15 mmol/L [facility] Calcium 9.7 8.5 - 10.5 mg/dL [facility] Est Glomerular Filtration Rate [...] ORDERABLES Performing Organization Address [facility] Co de Phone Number [facility] [place] [address] * Prothrombin Time (07/23/2022 11:55 AM EDT) Prothrombin Time 11.7 9.4 - 12.5 sec [facility] International Normalization Ratio 1.0 [facility] Comment: An INR <2.0 [...] HEMATOLOGY ORDERABLE S Performing Organization Address City/[facility] Co de Phone Number [facility] [place] [address] documented in this encounter Visit Diagnoses Diagnosis HFrEF (heart failure with reduced ejection fraction)- Primary Left bundle branch block Other left bundle branch block Nonischemic cardiomyopathy Other primary cardiomyopathies Cardiac resynchronization therapy defibrillator (DIRECTOR OF EPIDEMIOLOGY-D) in place Left bundle branch block Other [...] (Intra-Procedure), Routine 1418 (Given - Provider: Fadi uNnez MD) ceFAZolin (Ancef) 2 g vial attach [...] Routine documented in this encounter Care Teams Society Editor Relationship Specialty Start Date End Date Lolly Oliveira MD [address] [place] [address] PCP - General 07/17/13 documented as of this encounter
--- OUTSIDE RECORDS SUMMARY | 2024-01-28 11:14 | XMS_ITS | Encounter Summary ---
Author Organization [facility] [place] [address] Care Team Providers Care Cake Maker Name Role Phone Lolly Oliveira MD Primary Care Provider [phone] Encounter Details Date Type Department Care Team (Latest Contact Info) Description 07/18/2013 [place] [phone] Alia Fraire MD [facility] [place] [address] Mammographic microcalcification (Primary Dx) Social History Tobacco [...] AM EST Hospital Encounter Non-Invasive [place] [address] Arrived documented as of this encounter Results [...] are present on specimen digital X-ray. A CeloNovark Eviva-Stereo 13 Cylinder marker clip was placed. [...] calcifications are present on specimendigital X-ray. A CeloNovark Eviva-Stereo 13 Cylinder marker clip was placed. [...] does not layer and, therefore, are not disability representative of milk of calcium. Again, these [...] does not layer and, therefore, are not disability representative of milk of calcium. Again, these have an amorphous andpunctate appearance and remain indeterminate. Stereotactic guided biopsy isrecommended. Alia Fraire MD IMG MAMMO ORDERABLES documented in this encounter Visit Diagnoses Diagnosis Mammographic microcalcification- Primary Mammographic microcalcification Mammographic microcalcification Mammographic microcalcification Mammographic microcalcification documented in this encounter Care Teams Cake Maker Relationship Specialty Start Date End Date Lolly Oliveira MD [address] [place] [address] PCP - General 07/17/13 documented as of this encounter
--- OUTSIDE RECORDS SUMMARY | 2024-01-28 11:14 | XMS_ITS | Encounter Summary ---
Author Organization [facility] Address [facility] [place] [address] Care Team Providers Care Janitorial Assistant Name Role Phone Lolly Oliveira MD Primary Care Provider [phone] Reason for Visit * Auth/Cert (Routine) Specialty Diagnoses / Procedures Referred By Contac t Referred To Contact Diagnoses Left bundle-branch block, unspecified Other cardiomyopathies Left bundle branch block [I44.7]Nonischemic cardiomyopathy [I42.8] Procedures PRG CATH PLMT LEFT HEART CATH & ARTS W/INJ & ANGIO IMG S&I ELECTROPHYSIOLOGY PROCEDURE Lalit Mcmahon MD [facility] [place] [address] [facility] [place] Referral ID Status Reason Start Date Expiration Date Visits Re quested Visits Authorized [id number] 1 1 Encounter Details Date Type Department Care Team (Late st Contact Info) Description 07/23/2022 1:08 PM EDT Anesthesia Event [place] [address] Monae Gonzalez MD [facility] [place] [address] Maria Elena Snyder CRNA [facility] [place] [address] Anesthesia Record Procedure Summary Procedure Name Responsible [...] 1307; median cubital vein (antecubital fossa), right; rykl-dnw-zeesqn catheter system; Anatomical Landmarks; 20 gauge; 07/24/22; [...] 1343; metacarpal vein (top of hand), left; dglp-hhk-whgxsc catheter system; Anatomical Landmarks; US Not Used; [...] 07/23/22 Room / Location: [facility] A-LAB ROOM 3 / [facility] EP LABS Anesthesia Start: 1308 Anesthesia Stop: 1633 Procedure: ELECTROPHYSIOLOGY PROCEDURE (Left) Diagnosis: Left bundle branch block Nonischemic cardiomyopathy (Left bundle branch block [I44.7]Nonischemic cardiomyopathy [I42.8]) Providers: Lalit Mcmahon MD Responsible Provider: Monae Gonzalez MD Anesthesia Type: general ASA Status: 4 All Anesthesia Providers: Anesthesiologist: Monae Gonzalez MD; Dominique Sen MD DRIVE IN WAITER/WAITRESS: Maria Elena Snyder CRNA Vitals Value Taken [...] and Nonischemic CM (EF 15-20%)who presents for [employer]. No prior anesthetic records. Pt states that [...] daughter/son and patient who. Plan discussed with DRIVE IN WAITER/WAITRESS. Anesthesia Screening documented in this encounter Plan of Treatment Upcoming Encounters Date Type Department Care Team (Late st Contact Info) Description 04/15/2024 10:00 AM [facility] Hospital Encounter Non-[place] [address] Arrived documented as of this [...] mg documented in this encounter Care Teams Janitorial Assistant Relationship Specialty Start Date End Date Lolly Oliveira MD [address] [place] [address] PCP - General 07/17/13 documented as of this encounter
--- OUTSIDE RECORDS SUMMARY | 2024-01-28 11:14 | XMS_ITS | Encounter Summary ---
Author Organization [facility] [place] [address] Care Team Providers Care Display Mechanic Name Role Phone Lolly Oliveira MD Primary Care Provider [phone] Reason for Visit * Reason Comments Follow-up Encounter Details Date Type Department Care Team (Late st Contact Info) Description 06/06/2021 8:45 AM EDT Office Visit Dermatology at [address] [address] Clay Ramírez MD [address] [facility] [place] [address] Psoriasis, guttate Social History Tobacco Use Types [...] Encounter Non-Invasive [place] [address] Arrived documented as of this encounter Visit Diagnoses Diagnosis Psoriasis, guttate Other psoriasis documented in this encounter Care Teams Display Mechanic Relationship Specialty Start Date End Date Lolly Oliveira MD [address] [place] [address] PCP - General 07/17/13 documented as of this encounter
--- OUTSIDE RECORDS SUMMARY | 2024-01-28 11:14 | XMS_ITS | Encounter Summary ---
[place] [address] Care Team Providers Care Oxide Furnace Tender Name Role Phone Lolly Oliveira MD Primary Care Provider [phone] Encounter Details Date Type Department Care Team [...] AM EST Hospital Encounter Non-Invasive [place] [address] Arrived documented as of this encounter Visit Diagnoses Not on filedocumented in this encounter Care Teams Oxide Furnace Tender Relationship Specialty Start Date End Date Lolly Oliveira MD [address] [place] [address] PCP - General 07/17/13 documented as of this encounter
--- OUTSIDE RECORDS SUMMARY | 2024-01-28 11:14 | XMS_ITS | Encounter Summary ---
Author Organization [facility] [place] [address] Care Team Providers Care Knowledge Manager Name Role Phone Lolly Oliveira MD Primary Care Provider [phone] Encounter Details Date Type Department Care Team (Late Contact Info) Description 01/14/2022 Telephone Dermatology at [address] [address] Nora Meredith LPN Social [...] AM EST Hospital Encounter Non-[place] [address] Arrived documented as of this encounter Visit Diagnoses Not on filedocumented in this encounter Care Teams Knowledge Manager Relationship Specialty Start Date End Date Lolly Oliveira MD [address] [place] [address] PCP - General 07/17/13 documented as of this encounter
--- OUTSIDE RECORDS SUMMARY | 2024-01-28 11:14 | XMS_ITS | Encounter Summary ---
Author Organization [facility] [place] [address] Care Team Providers Care Physics Department Chair Name Role Phone Lolly Oliveira MD Primary Care Provider [phone] Reason for Visit * Reason Comments Follow-up Encounter Details Date Type Department Care Team (Late st Contact Info) Description 05/21/2022 8:00 AM EDT Office Visit Dermatology at [address] [phone] Clay Ramírez MD [address] [facility], [place] [address] Psoriasis, guttate Social History Tobacco Use Types [...] st Contact Info) Description 04/15/2024 10:00 AM [facility] Hospital Encounter Non-[place] [address] Arrived documented as of this encounter Visit Diagnoses Diagnosis Psoriasis, guttate Other psoriasis documented in this encounter Care Teams Physics Department Chair Relationship Specialty Start Date End Date Lolly Oliveira MD [address] [place] [address] PCP - General 07/17/13 documented as of this encounter
--- OUTSIDE RECORDS SUMMARY | 2024-01-28 11:14 | XMS_ITS | Encounter Summary ---
[place] [address] Care Team Providers Care Store Group Manager Name Role Phone Lolly Oliveira MD Primary Care Provider [phone] Encounter Details Date Type Department Care Team [...] AM EST Hospital Encounter Non-[place] [address] Arrived documented as of this encounter Visit Diagnoses Not on filedocumented in this encounter Care Teams Store Group Manager Relationship Specialty Start Date End Date Lolly Oliveira MD [address] [place] [address] PCP - General 07/17/13 documented as of this encounter
--- OUTSIDE RECORDS SUMMARY | 2024-01-28 11:14 | XMS_ITS | Encounter Summary ---
Author Organization [facility] [place] [address] Care Team Providers Care Manager Database Administration Name Role Phone Lolly Oliveira MD Primary Care Provider [phone] Encounter Details Date Type Department Care Team (Latest Contact Info) Description 07/20/2013 9:26 AM EDT - 07/20/2013 11:59 PM EDT Hospital Encounter [place] [address] CLINIC, Lolly So MD [address] [place], [place] [id number] Mammographic microcalcification Discharge Disposition: Home Social History [...] AM EST Hospital Encounter Non-Invasive [place] [address] Arrived documented as of this encounter Procedures [...] does not layer and, therefore, are not termite control service representative of milk of calcium. [...] does not layer and, therefore, are not termite control service representative of milk of calcium. Again, these have an amorphous andpunctate appearance and remain indeterminate. Stereotactic guided biopsy isrecommended. Alia Fraire MD IMG MAMMO ORDERABLES documented in this encounter Visit Diagnoses Diagnosis Mammographic microcalcification documented in this encounter Care Teams Manager Database Administration Relationship Specialty Start Date End Date Lolly Oliveira MD [address] [place] [address] PCP - General 07/17/13 documented as of this encounter
--- OUTSIDE RECORDS SUMMARY | 2024-01-28 11:14 | XMS_ITS | Encounter Summary ---
Author Organization [facility] [place] [address] Care Team Providers Care Fundraising Assistant Name Role Phone Unavailable Primary Care Provider Unavailabl e Encounter Details Date Type Department Care Team (Late st Contact Info) Description 07/14/2013 [place] [address] Eleno Christian MD [facility] DIAGNOSTIC [place] [address] Social History Tobacco Use Types Packs/Day Years [...] AM EST Hospital Encounter Non-Invasive [place] [address] Arrived documented as of this encounter Visit Diagnoses Not on filedocumented in this encounter
--- OUTSIDE RECORDS SUMMARY | 2024-01-28 11:14 | XMS_ITS | Encounter Summary ---
Author Organization [facility] [place] [address] Care Team Providers Care Hand Blocker Name Role Phone Lolly Oliveira MD Primary Care Provider [phone] Reason for Referral * Diagnostic Test (Routine) - Closed Specialty Diagnoses / Procedures Referred By Contac t Referred To Contact Radiology Diagnoses Left bundle branch block Nonischemic cardiomyopathy Procedures MRI Cardiac Morphology Function With Flow Velocity Quantification wwo Contrast MRI Cardiac Morphology Function wwo Contrast Lalit Mcmahon MD [facility] [place] [address] [place] [address] Referral ID Status Reason Start Date Expiration Date V isits Requested Visits Authorized [id number] Closed Specialty Service Requested 05/06/2022 11/07/2023 2 1 Encounter Details Date Type Department Care Team (Late st Contact Info) Description 05/06/2022 Orders Only Cardiology at [address] [address] Lalit Mcmahon MD [facility] [place] [address] Left bundle branch block; Nonischemic cardiomyopathy Social [...] AM EST Hospital Encounter Non-[place] [address] Arrived documented as of this encounter Results [...] documented in this encounter Care Teams Hand Blocker Relationship Specialty Start Date End Date Lolly Oliveira MD [address] [place] [address] PCP - General 07/17/13 documented as of this encounter
--- OUTSIDE RECORDS SUMMARY | 2024-01-28 11:14 | XMS_ITS | Encounter Summary ---
Author Organization [facility] [place] [address] Care Team Providers Care Field Contact Technician Name Role Phone Lolly Oliveira MD Primary Care Provider [phone] Encounter Details Date Type Department Care Team (Late st Contact Info) Description 04/01/2021 3:30 PM EST Office Visit Dermatology at [address] [phone] Clay Ramírez MD [address] [facility] [address], [place] [address] Psoriasis, guttate Social History Tobacco Use Types [...] Hospital Encounter Non-[place] [address] Arrived documented as of this encounter Visit Diagnoses Diagnosis Psoriasis, guttate Other psoriasis documented in this encounter Care Teams Field Contact Technician Relationship Specialty Start Date End Date Lolly Oliveira MD [address] [place] [address] PCP - General 07/17/13 documented as of this encounter
--- OUTSIDE RECORDS SUMMARY | 2024-01-28 11:14 | XMS_ITS | Encounter Summary ---
Author Organization [facility] [place] [address] Care Team Providers Care Steam Drier Tender Name Role Phone Lolly Oliveira MD Primary Care Provider [phone] Encounter Details Date Type Department Care Team (Latest Contact Info) Description 07/17/2013 8:40 AM EDT - 07/17/2013 11:59 PM EDT Hospital Encounter XRay at [address] [place] [address] CLINIC, DR [facility] Discharge Disposition: Home Social [...] AM EST Hospital Encounter Non-[place] [address] Arrived documented as of this encounter Visit Diagnoses Not on filedocumented in this encounter Care Teams Steam Drier Tender Relationship Specialty Start Date End Date Lolly Oliveira MD [address] [place] [address] PCP - General 07/17/13 documented as of this encounter
--- OUTSIDE RECORDS SUMMARY | 2024-01-28 11:14 | XMS_ITS | Encounter Summary ---
Author Organization [facility]ly [facility] [place] [address] Care Team Providers Care Flask Cleaner Name Role Phone Unavailable Primary Care Provider Unavailabl e Encounter Details Date Type Department Care Team (Late st Contact Info) Description 07/04/2012 [place] [address] Eleno Christian MD [facility] DIAGNOSTIC [place] [address] Social History Tobacco Use Types Packs/Day Years [...] AM EST Hospital Encounter [place] [address] Arrived documented as of this encounter Procedures [...] is a Non-reportable exam Eleno Christian MD [facility] FILM LIBRARY ORD ERABLES documented in this encounter Visit Diagnoses Not on filedocumented in this encounter
--- OUTSIDE RECORDS SUMMARY | 2024-01-28 11:14 | XMS_ITS | Encounter Summary ---
[place] [address] Care Team Providers Care Learning Services Coordinator Name Role Phone Lolly Oliveira MD Primary Care Provider [phone] Encounter Details Date Type Department Care Team (Latest Contact Info) Description 07/26/2013 9:45 AM EDT - 07/26/2013 11:59 PM EDT Hospital [place] [address] Mammographic microcalcification Social History Tobacco Use Types [...] Hospital Encounter Non-Invasive [place] [address] Arrived documented as of this encounter Procedures Procedure Name Priority Date/Time Associated Diagnosis Comments SURGICAL PATHOLOGY REPORT Routine 07/26/2013 12:12 PM EDT MAMMO SPECIMEN IMAGING DURING BIOPSY Routine 07/26/2013 11:58 AM EDT Mammographic microcalcification documented in this encounter Results * Surgical Pathology Report (07/26/2013 12:12 PM EDT) Final Diagnosis ? [facility] ? Provider: ?? ELENO CHRISTIAN ?? Pt. Name: ?? JING ALVARENGA ? Acc #: ?[id number] ?Pt. ? Col Date: ?? 07/26/2013 ? [...] needle core biopsies. ? [facility] ? Provider: ?? ELENO CHRISTIAN ?? Pt. Name: ?? JING ALVARENGA ? Acc #: ?[id number] ?Pt. ? Col Date: ?? 07/26/2013 ? [...] PATHOLOGY/CYTOLOGY O RDERABLES Performing Organization Address City/State/[facility] Co dc Phone Number [facility] [place] [address] * Mammo Specimen Imaging During Biopsy (07/26/2013 [...] microcalcification documented in this encounter Care Teams Learning Services Coordinator Relationship Specialty Start Date End Date Lolly Oliveira MD [address] [place] [address] PCP - General 07/17/13 documented as of this encounter
--- OUTSIDE RECORDS SUMMARY | 2024-01-28 11:14 | XMS_ITS | Encounter Summary ---
Author Organization [facility] [place] [address] Care Team Providers Care Filter Press Supervisor Name Role Phone Lolly Oliveira MD Primary Care Provider [phone] Encounter Details Date Type Department Care Team (Latest Contact Info) Description 07/26/2013 9:44 AM EDT - 07/26/2013 11:59 PM EDT Hospital Encounter [place] [address] CLINIC, Lolly So MD [address] [place], [place] [address] Mammographic microcalcification Discharge Disposition: Home Social History [...] EST Hospital Encounter Non-Invasive [place] [address] Arrived documented as of this encounter Procedures [...] are present on specimen digital X-ray. A Synthace-Stereo 13 Cylinder marker clip was placed. Cranio-caudal [...] mLs documented in this encounter Care Teams Filter Press Supervisor Relationship Specialty Start Date End Date Lolly Oliveira MD [address] [place] [address] PCP - General 07/17/13 documented as of this encounter
--- OUTSIDE RECORDS SUMMARY | 2024-01-28 11:14 | XMS_ITS | Encounter Summary ---
Author Organization [facility] [place] [address] Care Team Providers Care Project Mgr Name Role Phone Lolly Oliveira MD Primary Care Provider [phone] Reason for Referral * Consultation (Routine) - Closed Specialty Diagnoses / Procedures Referred By Contact Referred To Contact Electrophysiology / Cardiology Diagnoses Left bundle branch block Cardiomyopathy, unspecified type AT MINIMUM PT NEEDS CONSIDERATION FOR DEFIBRILLATOR, ALSO CANDIDATE FOR RESYNCHRONIZATION THERAPY HER QRS IS >0.16 Lolly Oliveira MD [address] [place] [address] [facility] Cardiology [address] [place] [phone] Referral ID Status Reason Start Date Expiration Date V isits Requested Visits Authorized [id number] Closed Consult, Test & Treat PCP Updated and/or Approved 04/30/2022 04/30/2023 6 6 Encounter Details Date Type Department Care Team (Latest Contact Info) Description 04/30/2022 Transcribe Orders eDH Incoming Referrals [phone] Lolly Oliveira MD [address] [place], [place] [id number] Left bundle branch block; Cardiomyopathy, unspecified type [...] AM EST Hospital Encounter Non-[place] [address] Arrived Scheduled Referrals Name Type Priority Associated Diagnoses Orde r Schedule Referral to Cardiology Outpatient Referral Routine Left bundle branch block Cardiomyopathy, Unspecified Type Ordered: 04/30/2022 documented as of this encounter Visit Diagnoses Diagnosis Left bundle branch block Other left bundle branch block Cardiomyopathy, unspecified type documented in this encounter Care Teams Project Mgr Relationship Specialty Start Date End Date Lolly Oliveira MD [address] [place] [address] PCP - General 07/17/13 documented as of this encounter
--- OUTSIDE RECORDS SUMMARY | 2024-01-28 11:14 | XMS_ITS | Encounter Summary ---
Author Organization [facility]ly [facility] [place] [address] Care Team Providers Care Network Security Analyst Name Role Phone Lolly Oliveira MD Primary Care Provider [phone] Reason for Visit * Reason Onset Date Comments Pre Procedure Call 07/01/2022 Encounter Details Date Type Department Care Team (Late st Contact Info) Description 07/01/2022 Telephone Cardiology at [address] [address] Rosenda Sutton RN Pre Procedure Call Social History Tobacco Use Types Packs/Day Years Used Date Smoking Tobacco: Never Sex and Gender Information Value Date Recorded Sex Assigned at Not on file Gender Identity Not on file Sexual Orientation Not on file documented as of this encounter Miscellaneous Notes * Telephone Encounter - Rosenda Sutton RN - 07/01/2022 9:30 AM EDTSummary: Pre Procedure Call: SHARPLES MACHINE OPERATOR implant EP [employer]PAR[employer] INTERNSHIP COORDINATION CHECKLIST Patient Name: Luna Mott Patient Performing Environmental Services Tech: Lalit Mcmahon Referring Provider: Lolly Oliveira Date of Procedure: 07/23/22 Arrival Time/ Case Time: 12:00 pm / 1:00 pm Check In Location: [facility] Marker Desk 4W Date Patient was Called: 07/01/22 Procedure: SHARPLES MACHINE OPERATOR Company: [employer] Type: SHARPLES MACHINE OPERATOR-D Laterality: LEFT Orders: Yes Lab [...] overnight , understands that they will need package car driver on day of discharge Notified pt that Goff catheter may be placed on day of procedure depending on type & duration of case. documented in this encounter Plan of Treatment Upcoming Encounters Date Type Department Care Team (Late st Contact Info) Description 04/15/2024 10:00 AM [facility] Hospital Encounter Non-Invasive [place] [address] Arrived documented as of this encounter Visit Diagnoses Not on filedocumented in this encounter Care Teams Network Security Analyst Relationship Specialty Start Date End Date Lolly Oliveira MD [address] [place] [address] PCP - General 07/17/13 documented as of this encounter
--- OUTSIDE RECORDS SUMMARY | 2024-01-28 11:14 | XMS_ITS | Encounter Summary ---
Author Organization [facility] [place] [address] Care Team Providers Care History Department Chair Name Role Phone Lolly Oliveira MD Primary Care Provider [phone] Reason for Visit * Diagnostic Test (Routine) - Closed Specialty Diagnoses / Procedures Referred By Contac t Referred To Contact Radiology Diagnoses Left bundle branch block Nonischemic cardiomyopathy Procedures MRI Cardiac Morphology Function With Flow Velocity Quantification wwo Contrast MRI Cardiac Morphology Function wwo Contrast Lalit Mcmahon MD [facility] [place] [address] [facility] [place] [address] Referral ID Status Reason Start Date Expiration Date V isits Requested Visits Authorized [id number] Closed Specialty Service Requested 05/06/2022 11/07/2023 2 1 Encounter Details Date Type Department Care Team (Latest Contact Info) Description 07/14/2022 9:09 AM EDT - 07/14/2022 11:59 PM EDT Hospital [place] [address] Lalit Mcmahon MD [facility] [place] [address] Discharge Disposition: Home Social History Tobacco Use [...] with spacer fluticasone propionate (Flonase) 50 mcg/actuation [place], Suspension 1 spray by Each Nare route [...] AM EST Hospital Encounter [place] [address] Arrived documented as of this [...] mLs documented in this encounter Care Teams History Department Chair Relationship Specialty Start Date End Date Lolly Oliveira MD [address] [place] [address] PCP - General 07/17/13 documented as of this encounter
--- OUTSIDE RECORDS SUMMARY | 2024-01-28 11:14 | XMS_ITS | Encounter Summary ---
[place] [address] Care Team Providers Care Indoor Plant Technician Name Role Phone Lolly Oliveira MD Primary Care Provider [phone] Encounter Details Date Type Department Care Team [...] AM EST Hospital Encounter [place] [address] Arrived documented as of this encounter Visit Diagnoses Not on filedocumented in this encounter Care Teams Indoor Plant Technician Relationship Specialty Start Date End Date Lolly Oliveira MD [address] [place] [address] PCP - General 07/17/13 documented as of this encounter
--- OUTSIDE RECORDS SUMMARY | 2024-02-02 11:19 | XMS_ITS | Clinical Summary ---
Author Organization [facility] [place] [address] Care Team Providers Care Explosives Mixer Operator Name Role Phone Lolly Oliveira MD Primary Care Provider [phone] Allergies Active Allergy Reactions Criticality Noted Date [...] spacer Active fluticasone propionate (Flonase) 50 mcg/actuation [place], Suspension 1 spray by Each Nare route [...] PM EST Hospital Encounter [place] [address] Discharge Disposition: Home from Last [...] AM EST Hospital Encounter [place] [address] Arrived Health Maintenance Due Date Last Done [...] series) 11/07/2023 Medical Devices Implanted Type [employer] Attendant Device Identifier Shelf Expiration Date Model / Serial / Lot Bsx: [id number]: 899088-6/18/2 023 Implanted: by Lalit Mcmahon MD (Quantity not on file) Defibrillator Chest Wall [employer] [id number] / [id number] / Bsx: [id number]: 709182-3/18/2 023 Implanted: by Lalit Mcmahon MD (Quantity not on file) Lead Heart [employer] 4674 / [id number] / Bsx: [id number]: [id number] Implanted: by Lalit Mcmahon MD (Quantity not on file) Lead Heart [employer] 7841 / [id number] / Bsx: [id number]: 332958-9/18/2 023 Implanted: by Lalit Mcmahon MD (Quantity not on file) Lead Heart [employer] 0672 / [id number] / Procedures Procedure Name Priority Date/Time Associated [...] Status decision made by: Patient Care Teams Explosives Mixer Operator Relationship Specialty Start Date End Date Lolly Oliveira MD [address] [place] [address] PCP - General 07/17/13
--- OUTSIDE RECORDS SUMMARY | 2024-02-02 11:19 | XMS_ITS | Encounter Summary ---
Author Organization [facility] [place] [address] Care Team Providers Care Collections Technician Name Role Phone Lolly Oliveira MD Primary Care Provider [phone] Encounter Details Date Type Department Care Team (Latest Contact Info) Description 10/18/2023 10:00 AM EDT - 10/18/2023 11:59 PM EDT Hospital Encounter [place] [address] Discharge Disposition: Home Social History Tobacco Use [...] with spacer fluticasone propionate (Flonase) 50 mcg/actuation [place], Suspension 1 spray by Each Nare route daily as needed. documented as of this encounter Plan of Treatment Upcoming Encounters Date Type Department Care Team (Late st Contact Info) Description 04/15/2024 10:00 AM EST Hospital Encounter [place] [address] Arrived documented as of this encounter Procedures [...] on filedocumented in this encounter Care Teams Collections Technician Relationship Specialty Start Date End Date Lolly Oliveira MD [address] [place] [address] PCP - General 07/17/13 documented as of this encounter
--- OUTSIDE RECORDS SUMMARY | 2024-02-02 11:19 | XMS_ITS | Encounter Summary ---
Author Organization [facility] Address [address] [place] [address] Care Team Providers Care Pencils Washer Name Role Phone Lolly Oliveira MD Primary Care Provider [phone] Encounter Details Date Type Department Care Team (Late st Contact Info) Description 02/11/2021 Lab Requisition [facility] Pathology & Laboratory Medicine - [address] [id number] Outr Resulting Lab, Provider Social History Tobacco [...] MICROBIOLOGY - GENER AL ORDERABLES Final Result [facility] [address] [place] [address] * COVID-19 TESTING (02/11/2021 8:00 EST) COVID-19 rt-PCR Result Negative Negative 02/12/2021 14:17 EST [facility] Comment: This test has [...] performed using the med SARS-CoV-2 assay ([employer] on the Med 6800 System Performing Lab Med [address] [facility] Lab 02/12/2021 14:17 EST [facility] Swab 02/11/2021 8:00 EST 02/11/2021 22:22 EST us Provider Outr Resulting Lab MICROBIOLOGY - GENER AL ORDERABLES Final Result [facility] [address] [place] [address] documented in this encounter Visit Diagnoses Not on filedocumented in this encounter Care Teams Pencils Washer Relationship Specialty Start Date End Date Lolly Oliveira MD [address] [place] [address] PCP - General 11/13/08 documented as of this encounter
--- OUTSIDE RECORDS SUMMARY | 2024-02-02 11:19 | XMS_ITS | Encounter Summary ---
Author Organization [facility] Address [address] [place] [address] Care Team Providers Care Color Tester Name Role Phone Lolly Oliveira MD Primary Care Provider [phone] Encounter Details Date Type Department Care Team (Late st Contact Info) Description 06/16/2012 Results Only [facility] Laboratory Services - [facility] ([facility] [address], [place] [id number] Lolly Oliveira MD [address] [place], [place] [id number] Social History Tobacco Use Types Packs/Day Years [...] ? JING ALVARENGA ? Accession #: ? [id number] : ? 1950 (Age: 61) ??F ?Collect [...] ORDERABLES Final Resu lt [facility] [address] [place] [address] documented in this encounter Visit Diagnoses Not on filedocumented in this encounter Care Teams Color Tester Relationship Specialty Start Date End Date Lolly Oliveira MD [address] [place] [address] PCP - General 11/13/08 documented as of this encounter
--- OUTSIDE RECORDS SUMMARY | 2024-02-02 11:19 | XMS_ITS | Encounter Summary ---
Author Organization [facility] Address [address] [place] [address] Care Team Providers Care Bevel Polisher Name Role Phone Lolly Oliveira MD Primary Care Provider [phone] Encounter Details Date Type Department Care Team (Late st Contact Info) Description 04/17/2005 Results Only [facility] conversion [address] [place] [address] Lolly Oliveira MD [address] [place], [place] [id number] Social History Tobacco Use Types Packs/Day Years [...] ? JING ALVARENGA ? Accession #: ? [id number] : ? 1950 (Age: 54) ??F ?Collect Date: ? 04/17/2005 Location: ? [facility] ? Receive Date: ? 04/21/2005 Provider: ?LOLLY OLIVEIRA MD Copy to: ? Specimen/Source: ?ThinPrep Pap Test, Cervix/Endocervix, processed on [employer] ThinPrep Imaging System, with manual evaluation Last [...] Final Resu lt [facility] [address] [place] [address] documented in this encounter Visit Diagnoses Not on filedocumented in this encounter Care Teams Bevel Polisher Relationship Specialty Start Date End Date Lolly Oliveira MD [address] [place] [address] PCP - General 11/13/08 documented as of this encounter
--- OUTSIDE RECORDS SUMMARY | 2024-02-02 11:19 | XMS_ITS | Encounter Summary ---
Author Organization [facility] Address [address] [place] [address] Care Team Providers Care Grader Patrol Name Role Phone Lolly Oliveira MD Primary Care Provider [phone] Encounter Details Date Type Department Care Team (Late st Contact Info) Description 04/12/2007 Results Only [facility] conversion [address] [place] [address] Lolly Oliveira MD [address] [place], [place] [phone] Social History Tobacco Use Types Packs/Day Years [...] ? JING ALVARENGA ? Accession #: ? [id number] : ? 1950 (Age: 56) ??F ?Collect Date: ? 04/12/2007 Location: ? [facility] ? Receive Date: ? 04/13/2007 Provider: ?LOLLY OLIVEIRA MD Copy to: ? Specimen/Source: ?ThinPrep Pap Test, Cervix/Endocervix, processed on [employer] ThinPrep Imaging System, with manual evaluation Last [...] ORDERABLES Final Resu lt [facility] [address] [place] [address] documented in this encounter Visit Diagnoses Not on filedocumented in this encounter Care Teams Grader Patrol Relationship Specialty Start Date End Date Lolly Oliveira MD [address] [place] [address] PCP - General 11/13/08 documented as of this encounter
--- OUTSIDE RECORDS SUMMARY | 2024-02-02 11:19 | XMS_ITS | Encounter Summary ---
Author Organization [facility] Address [address] [place] [address] Care Team Providers Care Mother Tester Name Role Phone Lolly Oliveira MD Primary Care Provider [phone] Encounter Details Date Type Department Care Team (Late st Contact Info) Description 04/25/2009 Orders Only [facility] Laboratory Services - [facility] ([facility]) [address] [place], [place] [phone] Lolly Oliveira MD [address] [place], [place] [phone] Social History Tobacco Use Types Packs/Day Years [...] ? JING ALVARENGA ? Accession #: ? [id number] ? : ? 1950 (Age: 58) ??F [...] ORDERABLES Final Resu lt Performing Organization Address [facility]/State/ZIP Co de Phone Number [facility] [address] [place] [address] documented in this encounter Visit Diagnoses Not on filedocumented in this encounter Care Teams Mother Tester Relationship Specialty Start Date End Date Lolly Oliveira MD [address] [place] [address] PCP - General 11/13/08 documented as of this encounter
--- OUTSIDE RECORDS SUMMARY | 2024-02-02 11:19 | XMS_ITS | Data Portability ---
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 Information not available 05/21/2023 Can You Handle Your Own Money Without Help? Yes [email or web address] Information not available 05/21/2023 Are You Having Difficulties Driving Your Car? No [email or web address] Information no t available 05/21/2023 Do You Always Fasten Your Seat Belt When You Are In A Car? Yes- Usually Information not available 05/21/2023 How Often During The Past Four Weeks Have You Been Bothered By Any Of The Following Problems? Falling Or Dizzy When Standing Up? Never Information not available 05/21/2023 Sexual Problems? Never [email or web address] Informat ion not available 05/21/2023 Trouble Eating Well? Sometimes [email or web address] Information not available 05/21/2023 Teeth Or Denture Problems? Sometimes [email or web address] Information not available 05/21/2023 Problems Using The Telephone? Never [email or web address] Information not available 05/21/2023 Tiredness Or Fatigue? Sometimes [email or web address] Information not available 05/21/2023 Have You Had 2 Or More Falls Or Sustained An Injury With A Fall In The Last Year? No Information no t available 05/21/2023 Do You Have Difficulty With Walking Or Balance? No [email or web address] Information not available 05/21/2023 Do You Currently Use A Hearing Device? No [email or web address] Information not available 05/21/2023 Do You Currently Have Any Trouble With Your Vision? Yes [email or web address] Information no t available 05/21/2023 Do You Exercise For About 20 Minutes Three Or More Days A Week? Yes- Most Of The Time Information not available 05/21/2023 Are There Any Safety Concerns In Your Home (see Attached [facility] Pamphlet)? No [email or web address] Information not available 05/21/2023 How Often Do You Have Trouble Taking Medicines The Way You Have Been Told To Take Them? I Always Take Them As Prescribed [email or web address] Information not available 05/21/2023 How Confident Are You That You Can Control And Manage Most Of Your Health Problems? Very Confident [email or web address] Information not available 05/21/2023 Do You Currently Have Any Difficulty With Your Hearing? No [email or web address] Information not available 05/21/2023 Date Of Most Recent SBINS 05/21/2023 [email or web address] Information not available 05/21/2023 What Was The Date Of Your Most Recent Tobacco Screening? 09/01/2023 Information not available 09/01/2023 Has Tobacco Cessation Counseling Been Provided? Yes Information not available 09/01/2023 On What Date Was Tobacco Cessation Counseling Provided? 09/01/2023 Information not available 09/01/2023 Do You Or Have You Ever Used Any Other Forms Of Tobacco Or Nicotine? No [email or web address] Information not available 05/21/2023 Sex: Female Functional [...] free, adsorbed 11/03/2018 completed Not Available [facility] 01/15/2023 04:53:39 Tdap 04/12/2007 completed Not Available [facility] 04:53:39 zoster live 06/16/2012 completed Not Available [facility] 01/15/2023 04:53:40 Pneumococcal conjugate PCV 13 09/17/2015 completed Not Available [facility] 01/15/2023 04:53:40 Influenza, high-dose, trivalent, PF 11/26/2017 completed Not Available [facility] 01/15/2023 04:53:41 Td(adult) unspecified formulation 09/30/1992 completed Not Available [facility] 01/15/2023 04:53:41 Influenza, split virus, trivalent, preservative 11/28/2015 completed Not Available [facility] 01/15/2023 04:53:41 Influenza, split virus, trivalent, preservative 01/04/2015 completed Not Available [facility] 01/15/2023 04:53:41 Influenza, split virus, quadrivalent, PF 12/21/2018 completed Not Available [facility] 01/15/2023 04:53:41 zoster recombinant 08/30/2018 completed Not Available [facility] 01/15/2023 04:53:42 zoster recombinant 01/26/2018 completed Not Available [facility] 01/15/2023 04:53:42 Influenza, high-dose, quadrivalent, PF 12/04/2020 completed Not Available [facility] 01/15/2023 04:53:43 Influenza, high-dose, quadrivalent, PF 12/11/2019 completed Not Available [facility] 01/15/2023 04:53:43 Influenza, high-dose, quadrivalent, PF 12/29/2021 completed Not Available [facility] 01/15/2023 04:53:43 COVID-19, mRNA, LNP-S, PF, 100 mcg/0.5mL dose or 50 mcg/0.25mL dose 07/09/2021 completed Not Available [facility] 01/15/2023 04:53:43 COVID-19 vaccine, vector-nr, rS-Ad26, PF, 0.5 mL 05/02/2020 completed Not Available [facility] 01/15/2023 04:53:44 SARS-COV-2 (COVID-19) vaccine, UNSPECIFIED 05/31/2020 completed Not Available [facility] 01/15/2023 04:53:44 SARS-COV-2 (COVID-19) vaccine, UNSPECIFIED 01/03/2021 completed Not Available [facility] 01/15/2023 04:53:44 pneumococcal polysaccharide PPV23 07/05/2014 completed Not Available [facility] 2022 04:53:45 Hep B, unspecified formulation 04/14/1993 completed Not Available [facility] 01/15/2023 04:53:45 Hep B, unspecified formulation 09/30/1992 completed Not Available [facility] 01/15/2023 04:53:46 Hep B, unspecified formulation 10/31/1992 completed Not Available [facility] 01/15/2023 04:53:46 influenza, unspecified formulation 12/11/2009 completed Not Available [facility] 01/15/2023 04:53:47 influenza, unspecified formulation 12/13/2012 completed Not Available [facility] 01/15/2023 04:53:47 influenza, unspecified formulation 12/18/2008 completed Not Available [facility] 01/15/2023 04:53:47 influenza, unspecified formulation 12/19/2010 completed Not Available [facility] 01/15/2023 04:53:47 influenza, unspecified formulation 12/30/2006 completed Not Available [facility] 01/15/2023 04:53:48 influenza, unspecified formulation 01/09/2014 completed Not Available [facility] 01/15/2023 04:53:48 influenza, unspecified formulation 01/26/2008 completed Not Available [facility] 01/15/2023 04:53:48 influenza, unspecified formulation 02/16/2012 completed Not Available [facility] 01/15/2023 04:53:48 Influenza, high-dose, quadrivalent, PF 12/17/2022 completed Not Available [facility] 03/19/2023 05:33:03 COVID-19, mRNA, LNP-S, PF, herminio-sucrose, 30 mcg/0.3 mL 12/28/2022 completed Not Available [facility] 03/19/2023 05:33:03 COVID-19, mRNA, LNP-S, bivalent, PF, 50 mcg/0.5 mL or 25mcg/0.25 mL dose 12/01/2023 completed DENYS Bauer, [facility] 12/20/2023 15:23:33 Respiratory syncytial virus (RSV) vaccine, unspecified 12/01/2023 completed DENYS Bauer, [facility] 12/20/2023 15:24:29 influenza, unspecified formulation 12/01/2023 completed DENYS Bauer, [facility] 12/20/2023 15:25:14 Past Encounters Encounter ID Performer Location Encounter Start Date Encounter Closed Date Diagnosis/Indication Diagnosis SNOMED-CT Code Diagnosis ICD10 Code [id number] LOLLY CORTEZ MD [address] [address] 05/21/2023 10:03:54 05/21/2023 11:37:49 Onychomycosis 554575977 B35.1 Asthma 579129641 J45.90 9 Cardiomyopathy 23290478 I10 Disorder of hip joint 42 9935686 M12.859 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 Hyperlipidemia 34738652 E78.5 Vulval and /or perineal noninflammatory disorders 870340400 N90.9 Adult heal th examination 945018508 Z00.00 [id number] [facility] [address] [place] [address] 09/01/2023 10:23:16 09/01/2023 13:28:10 Vertigo 983186835 R42 Impacted c erumen of bilateral ears 4541248460 926654 H61.23 [id number] LOLLY CORTEZ MD [facility] [address] [place] [address] 11/26/2023 07:26:08 11/26/2023 08:10:59 Screening mammography 05404340 Z12.31 Adjustment disorder 1722 6007 F43.20 Asthma 805807688 J45.90 9 Essential hypertension 93122085 I10 Guttate psoriasis 060187 00 L40.4 Cardiomyopathy 49833311 I10 Hyperlipidemia 81829350 E78.5 Prediabetes 410911464 R7 3.03 Health Concerns Section Related Observation LastModified by Organization Detai ls LastModified Time None Recorded Concern Status LastModified by Organization Details LastModified Time None Recorded Advance Directives Directive None Recorded Payers Encounter Date Sequence Insurance Name Policy Number Policy Lema Covered Member ID Lema Member ID Guarantor Name 05/21/2023 1 [place] - [place]) [id number] Luna Lunaslin [id number] [place] 09/01/2023 1 [place] - [place]) [id number] Luna E [place] [id number] [place] E [place] 11/26/2023 1 [place] - [place]) [id number] [place] E [place] [id number] Luna E [place] Notes Date Note Type Note Provider Name and Address Organization Details Recorded Time 05/21/2023 text/html Thais here today for an annual wellness exam MD [address], [place], [address], [facility]. 05/24/2023 18:32:35 09/01/2023 text/html Luna is [...] it. JESSICA INGRAM PA-C [address], [place], [address], [facility]. 09/01/2023 13:55:07 11/26/2023 text/html Thais here today for follow-up of cardiomyopathy, obesity LOLLY CORTEZ MD [address], [place], [address], [facility]. 11/28/2023 09:26:44 OBGyn Episode No OBEpisode recorded.
--- OUTSIDE RECORDS SUMMARY | 2024-02-02 11:19 | XMS_ITS | Encounter Summary ---
Author Organization [facility] Address [address] [place] [address] Care Team Providers Care Truss Maker Name Role Phone Lolly Oliveira MD Primary Care Provider [phone] Encounter Details Date Type Department Care Team (Late st Contact Info) Description 03/21/2019 Lab Requisition [facility] Pathology & Laboratory Medicine - [address] [address] Unknown, Provider, Social History Tobacco Use Types [...] 211 - 911 pg/mL 03/22/2019 11:52 EST [facility] Blood VENOUS BLOOD / Unknown 03/16/2019 9:25 EST 03/21/2019 21:35 EST us Provider Unknown CHEMISTRY & BLOOD GAS ORDERA BLES Final Result [facility] [address] [place] [address] documented in this encounter Visit Diagnoses Not on filedocumented in this encounter Care Teams Truss Maker Relationship Specialty Start Date End Date Lolly Oliveira MD [address] [place] [address] PCP - General 11/13/08 documented as of this encounter
--- OUTSIDE RECORDS SUMMARY | 2024-02-02 11:19 | XMS_ITS | Encounter Summary ---
Author Organization [facility] Address [address] [place] [address] Care Team Providers Care Oliving Machine Operator Name Role Phone Lolly Oliveira MD Primary Care Provider [phone] Encounter Details Date Type Department Care Team (Late st Contact Info) Description 05/27/2021 Lab Requisition [facility] Pathology & Laboratory Medicine - [address] [address] Iman Moran, DO [address] [place], [place] [id number] Encounter for other general examination Social History [...] explore management options, if applicable. 05/30/2021 13:31 [facility] Final Diagnosis A. [...] [facility] Performing Lab [facility] 05/30/2021 13:31 [facility] Scanned Images 05/30/2021 13:31 [facility] Tissue ENTIRE COLON / Unknown 05/27/2021 11:23 EDT 05/27/2021 16:33 EDT us Iman Moran DO PATHOLOGY ORDERABLES Final Re sult [facility] [address] [place] [address] documented in this encounter Visit Diagnoses Diagnosis Encounter for other general examination documented in this encounter Care Teams Oliving Machine Operator Relationship Specialty Start Date End Date Lolly Oliveira MD [address] [place] [address] PCP - General 11/13/08 documented as of this encounter
--- OUTSIDE RECORDS SUMMARY | 2024-02-02 11:19 | XMS_ITS | Encounter Summary ---
Author Organization [place] [address] Care Team Providers Care Mold Dresser Name Role Phone Lolly Oliveira MD Primary Care Provider [phone] Encounter Details Date Type Department Care Team (Latest Contact Info) Description 01/16/2024 10:00 AM EST - 01/16/2024 11:59 PM EST Hospital Encounter [place] [phone] Discharge Disposition: Home Social History Tobacco Use [...] with spacer fluticasone propionate (Flonase) 50 mcg/actuation [place], Suspension 1 spray by Each Nare route daily as needed. documented as of this encounter Plan of Treatment Upcoming Encounters Date Type Department Care Team (Late st Contact Info) Description 04/15/2024 10:00 AM EST Hospital Encounter Non[place] [address] Arrived documented as of this encounter Procedures [...] filedocumented in this encounter Care Teams Mold Dresser Relationship Specialty Start Date End Date Lolly Oliveira MD [address] [place] [address] PCP - General 07/17/13 documented as of this encounter
--- OUTSIDE RECORDS SUMMARY | 2024-02-02 11:19 | XMS_ITS | Encounter Summary ---
Author Organization [facility] Address [address] [place] [address] Care Team Providers Care Coil Former Name Role Phone Lolly Oliveira MD Primary Care Provider [phone] Encounter Details Date Type Department Care Team (Late st Contact Info) Description 03/06/2003 Results Only [facility] [place] conversion [address] [place] [address] Lolly Oliveira MD [address] [place], [place] [id number] Social History Tobacco Use Types Packs/Day Years [...] ORDERABLES Final Resu lt [facility] [address] [place] [address] documented in this encounter Visit Diagnoses Not on filedocumented in this encounter Care Teams Coil Former Relationship Specialty Start Date End Date Lolly Oliveira MD [address] [place] [address] PCP - General 11/13/08 documented as of this encounter
--- OUTSIDE RECORDS SUMMARY | 2024-02-02 11:19 | XMS_ITS | Encounter Summary ---
Author Organization [facility] Address [address] [place] [address] Care Team Providers Care Trimmer And Reinforcer Name Role Phone Lolly Oliveira MD Primary Care Provider [phone] Encounter Details Date Type Department Care Team (Late st Contact Info) Description 05/29/2002 Results Only [facility] conversion [address] [place] [address] Silvia Diehl, [address] [place] [address] Social History Tobacco Use Types Packs/Day Years [...] Name: ? LYLEJING ? Accession #: ? [id number] : ? 1950 (Age: 51) ??F ?Collect Date: ? 05/29/2002 Location: ? [facility] ? Receive Date: ? 05/31/2002 Provider: ?SILVIA DIEHL COUNTERSINKER BALANCE SCREW HOLE Copy to: ? Specimen/Source: ?ThinPrep Pap Test, [...] [facility] 05/29/2002 05/31/2002 us Silvia Diehl COUNTERSINKER BALANCE SCREW HOLE PATHOLOGY ORDERABLES Final R esult [facility] [address] [place] [address] documented in this encounter Visit Diagnoses Not on filedocumented in this encounter Care Teams Trimmer And Reinforcer Relationship Specialty Start Date End Date Lolly Oliveira MD [address] [place] [address] PCP - General 11/13/08 documented as of this encounter
--- OUTSIDE RECORDS SUMMARY | 2024-02-02 11:19 | XMS_ITS | Encounter Summary ---
Author Organization [facility] Address [address] [place] [address] Care Team Providers Care Satellite Manager Name Role Phone Lolly Oliveira MD Primary Care Provider [phone] Encounter Details Date Type Department Care Team (Late st Contact Info) Description 04/01/2005 Results Only [facility] conversion [address] [place] [address] Blair Dukes MD [address] [place] [phone] Social History Tobacco Use Types Packs/Day Years [...] ? JING ALVARENGA ? Accession #: ? [id number] ? : ? 1950 (Age: 54) ??F [...] ? Received in [place]' s fixative labelled [address] and #1 ??terminal ileum bx is a single 0.3 x 0.2 x 0.2 cm tissue, submitted intact as (A). Received in [place]' s fixative labelled [address] and #2 ??transverse colon bx is a single 0.2 x 0.2 x 0.2 cm tissue, submitted intact as (B). ??(Dr. Lechuga)/[facility] End of Report [facility] 04/01/2005 04/02/2005 15: 24 EST us Blair Dukes MD PATHOLOGY ORDERABLES Final Resul t [facility] [address] [place] [address] documented in this encounter Visit Diagnoses Not on filedocumented in this encounter Care Teams Satellite Manager Relationship Specialty Start Date End Date Lolly Oliveira MD [address] [place] [address] PCP - General 11/13/08 documented as of this encounter
--- OUTSIDE RECORDS SUMMARY | 2024-02-02 11:19 | XMS_ITS | Encounter Summary ---
Author Organization [facility] Address [address] [place] [address] Care Team Providers Care Forecast Analyst Name Role Phone Unavailable Primary Care Provider Unavailabl e Encounter Details Date Type Department Care Team (Late st Contact Info) Description 11/07/2008 Orders Only [facility] Laboratory Services - [facility] ([facility] [address] [place] [address] Kenneth Parker MD [address] [place] [address] Social History Tobacco Use Types Packs/Day Years [...] ? JING ALVARENGA ? Accession #: ? [id number] ? : ? 1950 (Age: 58) ??F [...] ORDERABLES Final Resu lt [facility] [address] [place] [address] documented in this encounter Visit Diagnoses Not on filedocumented in this encounter
--- OUTSIDE RECORDS SUMMARY | 2024-02-02 11:19 | XMS_ITS | Encounter Summary ---
Author Organization [facility] Address [address] [place] [address] Care Team Providers Care Transplant Nurse Practitioner Name Role Phone Lolly Oliveira MD Primary Care Provider [phone] Encounter Details Date Type Department Care Team (Late st Contact Info) Description 05/02/2004 Results Only [facility] [address] conversion [address] [place] [address] Lolly Oliveira MD [address] [place], [place] [id number] Social History Tobacco Use Types Packs/Day Years [...] 66. [facility] Report Status Final [id number] [facility] 05/02/2004 9:32 EST 05/10/2004 9:32 EST us Lolly Oliveira MD MICROBIOLOGY - GENERAL ORDERABL ES Final Result [facility] [address] [place] [address] * CYTOPATHOLOGY (05/02/2004 0:00 EST) Pathology Report: CYTOPATHOLOGY REPORT Reports generated via electronic interface contain original data; however they are lacking the format of the original report. Caution should be taken when reading/interpreti ng unformatted reports. Name: ? JING ALVARENGA ? Accession #: ? [id number] : ? 1950 (Age: 53) ??F ?Collect [...] ORDERABLES Final Resu lt Performing Organization Address City/State/[facility] Co de Phone Number [facility] [address] [place] [address] documented in this encounter Visit Diagnoses Not on filedocumented in this encounter Care Teams Transplant Nurse Practitioner Relationship Specialty Start Date End Date Lolly Oliveira MD [address] [place] [address] PCP - General 11/13/08 documented as of this encounter
--- OUTSIDE RECORDS SUMMARY | 2024-02-02 11:19 | XMS_ITS | Encounter Summary ---
Author Organization [facility] Address [address] [place] [address] Care Team Providers Care Boiler Attendant Name Role Phone Lolly Oliveira MD Primary Care Provider [phone] Encounter Details Date Type Department Care Team (Late st Contact Info) Description 11/13/2020 Lab Requisition [facility] Pathology & Laboratory Medicine - [address] [address] Outr Resulting Lab, Provider Social History Tobacco [...] MICROBIOLOGY - GENER AL ORDERABLES Final Result [facility] [address] [place] [address] * COVID-19 TESTING (11/13/2020 7:30 EDT) COVID-19 [...] performed using the med SARS-CoV-2 assay ([employer] on the Med 6800 System Performing Lab Med [address] [facility] 11/14/2020 11:46 EDT [facility] Swab 11/13/2020 7:30 EDT 11/13/2020 20:57 EDT us Provider Outr Resulting Lab MICROBIOLOGY - GENER AL ORDERABLES Final Result Performing Organization Address [facility] Co de Phone Number [facility] [address] [place] [address] documented in this encounter Visit Diagnoses Not on filedocumented in this encounter Care Teams Boiler Attendant Relationship Specialty Start Date End Date Lolly Oliveira MD [address] [place] [address] PCP - General 11/13/08 documented as of this encounter
--- OUTSIDE RECORDS SUMMARY | 2024-02-02 11:19 | XMS_ITS | Clinical Summary ---
Author Organization [facility] Address [address] [place] [address] Care Team Providers Care Watch Repairer Name Role Phone Lolly Oliveira MD Primary Care Provider [phone] Social History Tobacco Use Types Packs/Day Years [...] 08/10/2023 COVID-19 Vaccine (2023- season) 2023 Insurance [facility] MEDIC[facility] Care Teams Watch Repairer Relationship Specialty Start Date End Date Berrian, Lolly, MD [address] [place] [address] PCP - General 11/13/08
--- OUTSIDE RECORDS SUMMARY | 2024-02-02 11:19 | XMS_ITS | Encounter Summary ---
Author Organization [facility] Address [address] [place] [address] Care Team Providers Care Doll Repairer Name Role Phone Lolly Oliveira MD Primary Care Provider [phone] Encounter Details Date Type Department Care Team (Late st Contact Info) Description 02/20/2020 Lab Requisition [facility] - [address] [id number] Outr Resulting Lab, Provider Social History Tobacco [...] in accordance with CLIA regulations, [employer] [place] [employer] (CAP) guidelines (May 25, 2019), and FDA guidance (May 06, 2019). This test is only for use under the Food and Drug Administration's Emergency Use Authorization. Swab ENTIRE NASOPHARYNX / Unknown 02/19/2020 16:30 EST 02/20/2020 16:09 EST us Provider Outr Resulting Lab MICROBIOLOGY - GENER AL ORDERABLES Final Result [facility] [place], [place] * COVID-19 TESTING (02/19/2020 16:30 EST) COVID-19 [...] in accordance with CLIA regulations, [employer] [place] [employer] (CAP) guidelines (May 25, 2019), and FDA guidance (May 06, 2019). This test is only for use under the Food and Drug Administration's Emergency Use Authorization. Performing Lab [facility] 02/22/2020 23:41 EST [facility] Swab 02/19/2020 16:3 0 EST 02/20/2020 16:09 EST us Provider Outr Resulting Lab MICROBIOLOGY - GENER AL ORDERABLES Final Result [facility] [address] [place] [address] [facility] [place], [place] documented in this encounter Visit Diagnoses Not on filedocumented in this encounter Care Teams Doll Repairer Relationship Specialty Start Date End Date Lolly Oliveira MD [address] [place] [address] PCP - General 11/13/08 documented as of this encounter
--- OUTSIDE RECORDS SUMMARY | 2024-02-02 11:19 | XMS_ITS | Referral Summary ---
Author Organization [facility] Address [address] [place] [address] Care Team Providers Care Chief Librarian Work With Blind Name Role Phone Lolly Oliveira MD Primary Care Provider [phone] Social History Tobacco Use Types Packs/Day Years Used Date Smoking Tobacco: Never Assessed Comments Unknown Sex and Gender Information Value Date Recorded Sex Assigned at Not on file Legal Sex Female 18:31 EST Gender Identity Not on file Sexual Orientation Not on file Plan of Treatment Not on file Insurance [facility] MEDICARE Care Teams Chief Librarian Work With Blind Relationship Specialty Start Date End Date Lolly Oliveira MD [address] [place] [address] PCP - General 11/13/08
--- OUTSIDE RECORDS SUMMARY | 2024-02-02 11:20 | XMS_ITS | Encounter Summary ---
Author Organization [facility] [place] [address] Care Team Providers Care Transfer Operator Name Role Phone Lolly Oliveira MD Primary Care Provider [phone] Encounter Details Date Type Department Care Team (Late st Contact Info) Description 05/18/2023 Telephone Dermatology at [address] [address] Nora Meredith LPN Social History [...] [facility] Encounter [place] [phone] Arrived documented as of this encounter Visit Diagnoses Not on filedocumented in this encounter Care Teams Transfer Operator Relationship Specialty Start Date End Date Lolly Oliveira MD [address] [place] [address] PCP - General 07/17/13 documented as of this encounter
--- OUTSIDE RECORDS SUMMARY | 2024-02-02 11:20 | XMS_ITS | Encounter Summary ---
Author Organization [facility] [place] [address] Care Team Providers Care Office Mover Name Role Phone Lolly Oliveira MD Primary Care Provider [phone] Encounter Details Date Type Department Care Team (Late st Contact Info) Description 11/16/2022 Telephone Cardiology at [address] [phone] Luna Rousseau, RN Social History Tobacco Use Types Packs/Day Years Used Date Smoking Tobacco: Never Alcohol Use Standard Drinks/Week Comments Not Currently 0 (1 standard drink = 0.6 oz pur e alcohol) [facility] Inpatient Questions Answer Date [...] BP today was 118/57 at CR at [facility]. Pt is going twice a week [...] [facility] Hospital Encounter Non-[place] [phone] Arrived documented as of this encounter Visit Diagnoses Not on filedocumented in this encounter Care Teams Office Mover Relationship Specialty Start Date End Date Lolly Oliveira MD [address] [place] [address] PCP - General 07/17/13 documented as of this encounter
--- OUTSIDE RECORDS SUMMARY | 2024-02-02 11:20 | XMS_ITS | Encounter Summary ---
[place] [address] Care Team Providers Care Bias Binding Cutter Name Role Phone Lolly Oliveira MD Primary Care Provider [phone] Encounter Details Date Type Department Care Team (Late st Contact Info) Description 04/09/2022 Refill Dermatology at [address] [address] Nora Meredith, APPLICATIONS SYSTEM ANALYST Social History Tobacco Use Types Packs/Day Years Used Date Smoking Tobacco: Never Sex and Gender Information Value Date Recorded Sex Assigned at Not on file Gender Identity Not on file Sexual Orientation Not on file documented as of this encounter Plan of Treatment Upcoming Encounters Date Type Department Care Team (Late st Contact Info) Description 04/15/2024 10:00 AM [facility] Hospital Encounter [place] [address] Arrived documented as of this encounter Visit Diagnoses Not on filedocumented in this encounter Care Teams Bias Binding Cutter Relationship Specialty Start Date End Date Lolly Oliveira MD [address] [place] [address] PCP - General 07/17/13 documented as of this encounter
--- OUTSIDE RECORDS SUMMARY | 2024-02-02 11:20 | XMS_ITS | Encounter Summary ---
Author Organization [facility] [place] [address] Care Team Providers Care Svp Research And Strategic Analysis Name Role Phone Lolly Oliveira MD Primary Care Provider [phone] Encounter Details Date Type Department Care Team (Late st Contact Info) Description 04/01/2021 3:30 PM EST Office Visit Dermatology at [address] [phone] Clay Ramírez MD [address], [place] [address] Psoriasis, guttate Social History Tobacco Use Types [...] AM EST Hospital Encounter Non-Invasive [place] [address] Arrived documented as of this encounter Visit Diagnoses Diagnosis Psoriasis, guttate Other psoriasis documented in this encounter Care Teams Svp Research And Strategic Analysis Relationship Specialty Start Date End Date Lolly Oliveira MD [address] [place] [address] PCP - General 07/17/13 documented as of this encounter
--- OUTSIDE RECORDS SUMMARY | 2024-02-02 11:20 | XMS_ITS | Encounter Summary ---
Author Organization [facility] [address] Care Team Providers Care Nuclear Waste Management Engineer Name Role Phone Lolly Oliveira MD Primary Care Provider [phone] Encounter Details Date Type Department Care Team (Latest Contact Info) Description 01/21/2023 10:00 AM EST - 01/21/2023 11:59 PM EST Hospital Encounter [place] [address] Discharge Disposition: Home Social History Tobacco Use [...] with spacer fluticasone propionate (Flonase) 50 mcg/actuation [place], Suspension 1 spray by Each Nare route [...] AM EST Hospital Encounter Non-[place] [address] Arrived documented as of this [...] filedocumented in this encounter Care Teams Nuclear Waste Management Engineer Relationship Specialty Start Date End Date Lolly Oliveira MD [address] [place] [address] PCP - General 07/17/13 documented as of this encounter
--- OUTSIDE RECORDS SUMMARY | 2024-02-02 11:20 | XMS_ITS | Encounter Summary ---
Author Organization [facility] [place] [address] Care Team Providers Care Sales Representative Business Courses Name Role Phone Lolly Oliveira MD Primary Care Provider Reason for Referral * Consultation (Routine) - Closed Specialty Diagnoses / Procedures Referred By Contact Referred To Contact Electrophysiology / Cardiology Diagnoses Left bundle branch block Cardiomyopathy, unspecified type AT MINIMUM PT NEEDS CONSIDERATION FOR DEFIBRILLATOR, ALSO CANDIDATE FOR RESYNCHRONIZATION THERAPY HER QRS IS >0.16 Lolly Oliveira MD [address] [place] [address] [facility] [address] [place] [id number] Referral ID Status Reason Start Date Expiration Date V isits Requested Visits Authorized [id number] Closed Consult, Test & Treat PCP Updated and/or Approved 04/30/2022 04/30/2023 6 6 Encounter Details Date Type Department Care Team (Latest Contact Info) Description 04/30/2022 Transcribe Orders eDH Incoming Referrals [phone] Lolly Oliveira MD [address] [place], [place] [id number] Left bundle branch block; Cardiomyopathy, unspecified type [...] AM EST Hospital Encounter Non-Invasive [place] [address] Arrived Scheduled Referrals Name Type Priority Associated Diagnoses Orde r Schedule Referral to Cardiology Outpatient Referral Routine Left bundle branch block Cardiomyopathy, Unspecified Type Ordered: 04/30/2022 documented as of this encounter Visit Diagnoses Diagnosis Left bundle branch block Other left bundle branch block Cardiomyopathy, unspecified type documented in this encounter Care Teams Sales Representative Business Courses Relationship Specialty Start Date End Date Lolly Oliveira MD [address] [place] [address] PCP - General 07/17/13 documented as of this encounter
--- OUTSIDE RECORDS SUMMARY | 2024-02-02 11:20 | XMS_ITS | Encounter Summary ---
Author Organization [facility] [place] [address] Care Team Providers Care Systems Auditor Name Role Phone Lolly Oliveira MD Primary Care Provider [phone] Reason for Visit * Reason Comments Follow-up Encounter Details Date Type Department Care Team (Late st Contact Info) Description 06/06/2021 8:45 AM EDT Office Visit Dermatology at [address] [address] Clay Ramírez MD [address] [facility] [place] [address] Psoriasis, guttate Social History Tobacco Use Types [...] AM EST Hospital Encounter Non-Invasive [place] [address] Arrived documented as of this encounter Visit Diagnoses Diagnosis Psoriasis, guttate Other psoriasis documented in this encounter Care Teams Systems Auditor Relationship Specialty Start Date End Date Lolly Oliveira MD [address] [place] [address] PCP - General 07/17/13 documented as of this encounter
--- OUTSIDE RECORDS SUMMARY | 2024-02-02 11:20 | XMS_ITS | Encounter Summary ---
Author Organization [facility] [place] [address] Care Team Providers Care Maintenance Technician Name Role Phone Lolly Oliveira MD Primary Care Provider [phone] Reason for Visit * Reason Comments Follow-up Encounter Details Date Type Department Care Team (Late st Contact Info) Description 05/21/2022 8:00 AM EDT Office Visit Dermatology at [address] [phone] Clay Ramírez MD [address] [facility], [place] [address] Psoriasis, guttate Social History Tobacco Use Types [...] [facility] Non-[place]vasive [place] [address] Arrived documented as of this encounter Visit Diagnoses Diagnosis Psoriasis, guttate Other psoriasis documented in this encounter Care Teams Maintenance Technician Relationship Specialty Start Date End Date Lolly Oliveira MD [address] [place] [address] PCP - General 07/17/13 documented as of this encounter
--- OUTSIDE RECORDS SUMMARY | 2024-02-02 11:20 | XMS_ITS | Encounter Summary ---
Author Organization [facility] Address [facility] [place] [address] Care Team Providers Care Elderly Sitter Name Role Phone Lolly Oliveira MD Primary Care Provider [phone] Encounter Details Date Type Department Care Team (Late st Contact Info) Description 11/11/2022 Orders Only Cardiology at [address] [phone] Lalit Mcmahon MD [facility] [place] [address] Nonischemic cardiomyopathy Social History Tobacco Use Types [...] st Contact Info) Description 04/15/2024 10:00 AM [facility] Hospital Encounter Non-[place]vasive [place] [address] Arrived documented as of this encounter Visit Diagnoses Diagnosis Nonischemic cardiomyopathy Other primary cardiomyopathies documented in this encounter Care Teams Elderly Sitter Relationship Specialty Start Date End Date Berrian, Lolly M, MD [address] [place] [address] PCP - General 07/17/13 documented as of this encounter
--- OUTSIDE RECORDS SUMMARY | 2024-02-02 11:20 | XMS_ITS | Encounter Summary ---
Author Organization [facility] [address] Care Team Providers Care Deputy Assessor Name Role Phone Lolly Oliveira MD Primary Care Provider [phone] Encounter Details Date Type Department Care Team (Late st Contact Info) Description 10/09/2021 Telephone Dermatology at [address] [address] Nora Meredith LPN Social History [...] [facility] Hospital Encounter Non-Invasive [place] [address] Arrived documented as of this encounter Visit Diagnoses Not on filedocumented in this encounter Care Teams Deputy Assessor Relationship Specialty Start Date End Date Lolly Oliveira MD [address] [place] [address] PCP - General 07/17/13 documented as of this encounter
--- OUTSIDE RECORDS SUMMARY | 2024-02-02 11:20 | XMS_ITS | Encounter Summary ---
Author Organization [place] [place] [address] Care Team Providers Care Wind Turbine Controls Engineer Name Role Phone Lolly Oliveira MD Primary Care Provider [phone] Encounter Details Date Type Department Care Team (Late Contact Info) Description 01/14/2022 Telephone Dermatology at [address] [address] Nora Meredith LPN Social History [...] AM EST Hospital Encounter Non-[place]vasive [place] [address] Arrived documented as of this encounter Visit Diagnoses Not on filedocumented in this encounter Care Teams Wind Turbine Controls Engineer Relationship Specialty Start Date End Date Lolly Oliveira MD [address] [place] [address] PCP - General 07/17/13 documented as of this encounter
--- OUTSIDE RECORDS SUMMARY | 2024-02-02 11:20 | XMS_ITS | Encounter Summary ---
Author Organization [facility] [place] [address] Care Team Providers Care Electric Truck Driver Name Role Phone Lolly Oliveira MD Primary Care Provider [phone] Reason for Visit * Diagnostic Test (Routine) - Closed Specialty Diagnoses / Procedures Referred By Contac t Referred To Contact Radiology Diagnoses Left bundle branch block Nonischemic cardiomyopathy Procedures MRI Cardiac Morphology Function With Flow Velocity Quantification wwo Contrast MRI Cardiac Morphology Function wwo Contrast Lalit Mcmahon MD [facility] [place] [address] [facility] [place] [address] Referral ID Status Reason Start Date Expiration Date V isits Requested Visits Authorized [id number] Closed Specialty Service Requested 05/06/2022 11/07/2023 2 1 Encounter Details Date Type Department Care Team (Latest Contact Info) Description 07/14/2022 9:09 AM EDT - 07/14/2022 11:59 PM EDT Hospital [place] [address] Lalit Mcmahon MD [facility] [place] [address] Discharge Disposition: Home Social History Tobacco Use [...] with spacer fluticasone propionate (Flonase) 50 mcg/actuation [place], Suspension 1 spray by Each Nare route [...] Hospital Encounter Non-[place] [address] Arrived documented as of this [...] mLs documented in this encounter Care Teams Electric Truck Driver Relationship Specialty Start Date End Date Lolly Oliveira MD [address] [place] [address] PCP - General 07/17/13 documented as of this encounter
--- OUTSIDE RECORDS SUMMARY | 2024-02-02 11:20 | XMS_ITS | Encounter Summary ---
Author Organization [facility] [place] [address] Care Team Providers Care Count Team Clerk Name Role Phone Lolly Oliveira MD Primary Care Provider [phone] Reason for Visit * Reason Comments Skin Check Encounter Details Date Type Department Care Team (Late st Contact Info) Description 11/23/2014 10:00 AM EDT Office Visit Dermatology at [address] [phone] Clay Ramírez MD [address] [facility] [place] [address] Dermatofibroma; Nevus; Solar lentigo Discharge Disposition: Home [...] Contact Info) Description 04/15/2024 10:00 AM [facility] Hospital Encounter Non-[place] [address] Arrived documented as of this encounter Visit Diagnoses Diagnosis Dermatofibroma Benign neoplasm of skin, site unspecified Nevus Benign neoplasm of skin, site unspecified Solar lentigo Other dyschromia documented in this encounter Care Teams Count Team Clerk Relationship Specialty Start Date End Date Lolly Oliveira MD [address] [place] [address] PCP - General 07/17/13 documented as of this encounter
--- OUTSIDE RECORDS SUMMARY | 2024-02-02 11:20 | XMS_ITS | Encounter Summary ---
Author Organization [facility] [place] [address] Care Team Providers Care Match Marker Name Role Phone Lolly Oliveira MD Primary Care Provider [phone] Encounter Details Date Type Department Care Team (Late st Contact Info) Description 03/17/2023 Telephone Cardiology at [address] [phone] Saranya Ma Social History Tobacco Use Types [...] EST Echo order faxed to [facility] at [phone]. No Prior auth needed. Ref #:[id number]. Saranya Ma Sr. Clinical Procedure [place]/Cold Type Composing Machine Operator documented in this encounter Plan of Treatment Upcoming Encounters Date Type Department Care Team (Late st Contact Info) Description 04/15/2024 10:00 AM [facility] Hospital Encounter Non-Invasive [place] [address] Arrived documented as of this encounter Visit Diagnoses Not on filedocumented in this encounter Care Teams Match Marker Relationship Specialty Start Date End Date Lolly Oliveira MD [address] [place] [address] PCP - General 07/17/13 documented as of this encounter
--- OUTSIDE RECORDS SUMMARY | 2024-02-02 11:20 | XMS_ITS | Encounter Summary ---
[place] [address] Care Team Providers Care Poultice Machine Operator Name Role Phone Lolly Oliveira MD Primary Care Provider [phone] Encounter Details Date Type Department Care Team [...] AM EST Hospital Encounter Non-In[place] [address] Arrived documented as of this encounter Visit Diagnoses Not on filedocumented in this encounter Care Teams Poultice Machine Operator Relationship Specialty Start Date End Date Lolly Oliveira MD [address] [place] [address] PCP - General 07/17/13 documented as of this encounter
--- OUTSIDE RECORDS SUMMARY | 2024-02-02 11:20 | XMS_ITS | Encounter Summary ---
Author Organization [facility] [place] [address] Care Team Providers Care Timing Machine Operator Name Role Phone Lolly Oliveira MD Primary Care Provider [phone] Reason for Visit * Reason Comments Psoriasis Encounter Details Date Type Department Care Team (Late st Contact Info) Description 04/09/2022 1:45 PM EST Office Visit Dermatology at [address] [address] Clay Ramírez MD [address] [facility] [place] [address] Psoriasis, guttate Social History Tobacco Use Types [...] AM EST Hospital Encounter [place] [address] Arrived documented as of this encounter Visit Diagnoses Diagnosis Psoriasis, guttate Other psoriasis documented in this encounter Care Teams Timing Machine Operator Relationship Specialty Start Date End Date Lolly Oliveira MD [address] [place] [address] PCP - General 07/17/13 documented as of this encounter
--- OUTSIDE RECORDS SUMMARY | 2024-02-02 11:20 | XMS_ITS | Encounter Summary ---
[place] [address] Care Team Providers Care Labourers Name Role Phone Lolly Oliveira MD Primary Care Provider [phone] Encounter Details Date Type Department Care Team [...] AM EST Hospital Encounter [place] [address] Arrived documented as of this encounter Visit Diagnoses Not on filedocumented in this encounter Care Teams Labourers Relationship Specialty Start Date End Date Lolly Oliveira MD [address] [place] [address] PCP - General 07/17/13 documented as of this encounter
--- OUTSIDE RECORDS SUMMARY | 2024-02-02 11:20 | XMS_ITS | Encounter Summary ---
Author Organization [facility] [place] [address] Care Team Providers Care Wildlife Conservation Officer Name Role Phone Lolly Oliveira MD Primary Care Provider [phone] Encounter Details Date Type Department Care Team [...] AM EST Hospital Encounter Non-[place] [address] Arrived documented as of this encounter Visit Diagnoses Not on filedocumented in this encounter Care Teams Wildlife Conservation Officer Relationship Specialty Start Date End Date Lolly Oliveira MD [address] [place] [address] PCP - General 07/17/13 documented as of this encounter
--- OUTSIDE RECORDS SUMMARY | 2024-02-02 11:20 | XMS_ITS | Encounter Summary ---
Author Organization [facility] [place] [address] Care Team Providers Care Rn Obgyn Name Role Phone Lolly Oliveira MD Primary Care Provider Reason for Visit * Reason Onset Date Comments Pre Procedure Call 07/01/2022 Encounter Details Date Type Department Care Team (Late st Contact Info) Description 07/01/2022 Telephone Cardiology at [address] [phone] Rosenda Sutton RN Pre Procedure Call Social History Tobacco Use Types Packs/Day Years Used Date Smoking Tobacco: Never Sex and Gender Information Value Date Recorded Sex Assigned at Not on file Gender Identity Not on file Sexual Orientation Not on file documented as of this encounter Miscellaneous Notes * Telephone Encounter - Rosenda Sutton RN - 07/01/2022 9:30 AM EDTSummary: Pre Procedure Call: MANAGER QUALITY SYSTEMS implant EP INFORMATION SYSTEMS DIRECTOR COORDINATION CHECKLIST Patient Name: Luna Mott Patient Performing Dance Entertainer: Lalit Mcmahon Referring Provider: Lolly Oliveira Date of Procedure: 07/23/22 Arrival Time/ Case Time: 12:00 pm / 1:00 pm Check In Location: It Programmer Desk 4W Date Patient was Called: 07/01/22 Procedure: MANAGER QUALITY SYSTEMS Company: [employer] Type: MANAGER QUALITY SYSTEMS-D Laterality: LEFT Orders: Yes Lab Orders: Yes [...] , understands that they will need dedicated truck driver on day of discharge Notified pt that Goff catheter may be placed on day of procedure depending on type & duration of case. documented in this encounter Plan of Treatment Upcoming Encounters Date Type Department Care Team (Late st Contact Info) Description 04/15/2024 10:00 AM [facility] Hospital Encounter Non[place] [address] Arrived documented as of this encounter Visit Diagnoses Not on filedocumented in this encounter Care Teams Rn Obgyn Relationship Specialty Start Date End Date Lolly Oliveira MD [address] [place] [address] PCP - General 07/17/13 documented as of this encounter
--- OUTSIDE RECORDS SUMMARY | 2024-02-02 11:20 | XMS_ITS | Encounter Summary ---
[place] [address] Care Team Providers Care Final Rail Cutter Name Role Phone Lolly Oliveira MD Primary Care Provider [phone] Encounter Details Date Type Department Care Team [...] AM EST Hospital Encounter [place] [address] Arrived documented as of this encounter Visit Diagnoses Not on filedocumented in this encounter Care Teams Final Rail Cutter Relationship Specialty Start Date End Date Lolly Oliveira MD [address] [place] [address] PCP - General 07/17/13 documented as of this encounter
--- OUTSIDE RECORDS SUMMARY | 2024-02-02 11:20 | XMS_ITS | Encounter Summary ---
Author Organization [facility] Address [facility] [place] [address] Care Team Providers Care It Service Manager Name Role Phone Lolly Oliveira MD Primary Care Provider [phone] Reason for Visit * Auth/Cert (Routine) Specialty Diagnoses / Procedures Referred By Contac t Referred To Contact Diagnoses Left bundle-branch block, unspecified Other cardiomyopathies Left bundle branch block [I44.7]Nonischemic cardiomyopathy [I42.8] Procedures PRG CATH PLMT LEFT HEART CATH & ARTS W/INJ & ANGIO IMG S&I ELECTROPHYSIOLOGY PROCEDURE Lalit Mcmahon MD [facility] [place] [address] [facility] Referral ID Status Reason Start Date Expiration Date Visits Re quested Visits Authorized [id number] 1 1 Encounter Details Date Type Department Care Team (Late st Contact Info) Description 07/23/2022 1:08 PM EDT Anesthesia Event [place] [address] Monae Gonzalez MD [facility] [address] Maria Elena Snyder CRNA [facility] [place] [address] Anesthesia Record Procedure Summary Procedure Name Responsible [...] 1307; median cubital vein (antecubital fossa), right; arqd-cce-ozdlxa catheter system; Anatomical Landmarks; 20 gauge; 07/24/22; [...] 1343; metacarpal vein (top of hand), left; hcpl-slg-kepzzg catheter system; Anatomical Landmarks; US Not Used; [...] Location: [facility] A[facility]LAB ROOM 3 / [facility] EP LABS Anesthesia Start: 1308 Anesthesia Stop: 1633 Procedure: ELECTROPHYSIOLOGY PROCEDURE (Left) Diagnosis: Left bundle branch block Nonischemic cardiomyopathy (Left bundle branch block [I44.7]Nonischemic cardiomyopathy [I42.8]) Providers: Lalit Mcmahon MD Responsible Provider: Monae Gonzalez MD Anesthesia Type: general ASA Status: 4 All Anesthesia Providers: Anesthesiologist: Monae Gonzalez MD; Dominique Sen MD LINUX SERVER ADMINISTRATOR: Maria Elena Snyder CRNA Vitals Value Taken Time BP 131/46 07/23/22 1700 Temp 36.7 ??C (98.1 ??F) 07/23/22 1627 Pulse 67 07/23/22 1703 Resp 14 07/23/22 1703 SpO2 98 % 07/23/22 1703 Pain Level Vitals shown include unvalidated device data. Patient Location: PACU/[facility] Level of Consciousness: Conscious but Sleepy Pain [...] and Nonischemic CM (EF 15-20%)who presents for MAIL HANDLER EQUIPMENT OPERATOR-D. No prior anesthetic records. Pt states [...] daughter/son and patient who. Plan discussed with LINUX SERVER ADMINISTRATOR. Anesthesia Screening documented in this encounter Plan of Treatment Upcoming Encounters Date Type Department Care Team (Late st Contact Info) Description 04/15/2024 10:00 AM [facility] Hospital Encounter Non-In[place] [address] Arrived documented as of this [...] documented in this encounter Care Teams It Service Manager Relationship Specialty Start Date End Date Lolly Oliveira MD [address] [place] [address] PCP - General 07/17/13 documented as of this encounter
--- OUTSIDE RECORDS SUMMARY | 2024-02-02 11:20 | XMS_ITS | Encounter Summary ---
Author Organization [facility] Address [facility] [place] [address] Care Team Providers Care Shuttlecock Feather Trimmer Name Role Phone Lolly Oliveira MD Primary Care Provider [phone] Encounter Details Date Type Department Care Team (Late st Contact Info) Description 07/16/2022 Telephone Cardiology at [address] [phone] Lalit Mcmahon MD [facility] [place] [address] Social History Tobacco Use Types Packs/Day Years [...] her nonischemic cardiomyopathy. She is scheduled for AIR DIRECTOR-D implantation next week and looks forward to the procedure. We will see each other next week. Lalit Mcmahon MD [facility] Cardiac Electrophysiology 07/16/2022 8:52 AM documented in this encounter Plan of Treatment Upcoming Encounters Date Type Department Care Team (Late st Contact Info) Description 04/15/2024 10:00 AM EST Hospital Encounter [place] [address] Arrived documented as of this encounter Visit Diagnoses Not on filedocumented in this encounter Care Teams Shuttlecock Feather Trimmer Relationship Specialty Start Date End Date Lolly Oliveira MD [address] [place] [address] PCP - General 07/17/13 documented as of this encounter
--- OUTSIDE RECORDS SUMMARY | 2024-02-02 11:20 | XMS_ITS | Encounter Summary ---
Author Organization [facility] [place] [address] Care Team Providers Care Writer Editor Name Role Phone Lolly Oliveira MD Primary Care Provider [phone] Reason for Referral * Diagnostic Test (Routine) - Closed Specialty Diagnoses / Procedures Referred By Contac t Referred To Contact Radiology Diagnoses Left bundle branch block Nonischemic cardiomyopathy Procedures MRI Cardiac Morphology Function With Flow Velocity Quantification wwo Contrast MRI Cardiac Morphology Function wwo Contrast Lalit Mcmahon MD [facility] [place] [address] [place] [address] Referral ID Status Reason Start Date Expiration Date V isits Requested Visits Authorized [id number] Closed Specialty Service Requested 05/06/2022 11/07/2023 2 1 Encounter Details Date Type Department Care Team (Late st Contact Info) Description 05/06/2022 Orders Only Cardiology at [address] [address] Lalit Mcmahon MD [facility] [place] [address] Left bundle branch block; Nonischemic cardiomyopathy Social [...] AM EST Hospital Encounter [place] [address] Arrived documented as of this encounter Results [...] have questions please contact the health hospice spiritual care coordinator that requested your imaging first. [...] who have questions please contactthe health hospice spiritual care coordinator that requested your imaging first. Lalit Mcmahon MD IMG MRI ORDERABLES documented in this encounter Visit Diagnoses Diagnosis Left bundle branch block Other left bundle branch block Nonischemic cardiomyopathy Other primary cardiomyopathies Left bundle branch block Other left bundle branch block Nonischemic cardiomyopathy Other primary cardiomyopathies documented in this encounter Care Teams Writer Editor Relationship Specialty Start Date End Date Lolly Oliveira MD [address] [place] [address] PCP - General 07/17/13 documented as of this encounter
--- OUTSIDE RECORDS SUMMARY | 2024-02-02 11:20 | XMS_ITS | Encounter Summary ---
Author Organization [place] [address] Care Team Providers Care Aircraft Designer Name Role Phone Lolly Oliveira MD Primary Care Provider [phone] Encounter Details Date Type Department Care Team (Latest Contact Info) Description 04/21/2023 10:00 AM EST - 04/21/2023 11:59 PM EST Hospital Encounter Non-[place] [phone] Discharge Disposition: Home Social History Tobacco Use [...] with spacer fluticasone propionate (Flonase) 50 mcg/actuation [place], Suspension 1 spray by Each Nare route [...] AM EST Hospital Encounter Non-[place] [address] Arrived documented as of this [...] filedocumented in this encounter Care Teams Aircraft Designer Relationship Specialty Start Date End Date Lolly Oliveira MD [address] [place] [address] PCP - General 07/17/13 documented as of this encounter
--- OUTSIDE RECORDS SUMMARY | 2024-02-02 11:20 | XMS_ITS | Encounter Summary ---
Author Organization [facility] [place] [address] Care Team Providers Care Cat Scan Technologist Name Role Phone Lolly Oliveira MD Primary Care Provider [phone] Reason for Visit * Reason Comments Follow-up 8 weeks UVB treatmen t twice weekly Encounter Details Date Type Department Care Team (Late st Contact Info) Description 07/19/2023 11:00 AM EDT Office Visit Dermatology at [address] [phone] Clay Ramírez MD [address], ERIKA A DERMATOLOGY [place], [place] [phone] Psoriasis Social History Tobacco Use Types Packs/Day [...] st Contact Info) Description 04/15/2024 10:00 AM [facility] Hospital Encounter Non-[place] [address] Arrived documented as of this encounter Visit Diagnoses Diagnosis Psoriasis Other psoriasis documented in this encounter Care Teams Cat Scan Technologist Relationship Specialty Start Date End Date Lolly Oliveira MD [address] [place] [address] PCP - General 07/17/13 documented as of this encounter
--- OUTSIDE RECORDS SUMMARY | 2024-02-02 11:20 | XMS_ITS | Encounter Summary ---
Author Organization [facility] [place] [address] Care Team Providers Care Supervisor Underwriting Clerks Name Role Phone Lolly Oliveira MD Primary Care Provider [phone] Encounter Details Date Type Department Care Team (Latest Contact Info) Description 07/20/2023 10:00 AM EDT - 07/20/2023 11:59 PM EDT Hospital Encounter Non[place] [phone] Discharge Disposition: Home Social History Tobacco Use [...] with spacer fluticasone propionate (Flonase) 50 mcg/actuation [place], Suspension 1 spray by Each Nare route daily as needed. documented as of this encounter Plan of Treatment Upcoming Encounters Date Type Department Care Team (Late st Contact Info) Description 04/15/2024 10:00 AM EST Hospital Encounter Non-[place] [address] Arrived documented as of this encounter Procedures [...] filedocumented in this encounter Care Teams Supervisor Underwriting Clerks Relationship Specialty Start Date End Date Lolly Oliveira MD [address] [place] [address] PCP - General 07/17/13 documented as of this encounter
--- OUTSIDE RECORDS SUMMARY | 2024-02-02 11:20 | XMS_ITS | Encounter Summary ---
Author Organization [facility] [place] [address] Care Team Providers Care Commodity Industry Analyst Name Role Phone Lolly Oliveira MD Primary Care Provider [phone] Reason for Visit * Reason Onset Date Comments Post Procedure Call 07/30/2022 Encounter Details Date Type Department Care Team (Late st Contact Info) Description 07/30/2022 Notes Only Cardiology at [address] [phone] Rosenda Sutton, RN Post Procedure Call Social [...] 07/30/2022 9:59 AM EDTSummary: Post Procedure Call: CLOUD AUTOMATION TESTER implant EP RN Post-Procedure Note: Date of Follow Up Call: 07/30/2022 Spoke With: Patient Procedure Type (choose all that apply): ICD Performing MIRLANDE Mcmahon Date of Procedure: 07/23/2022 Date of Discharge: 07/24/2022 Follow Up EP Visit Scheduled?: No No Follow Up Visit Reason: Follow up outside Outside Location: [facility] Date of Non EP Visit: [...] Note: Follow-up Recommendations for Providers: - s/p CLOUD AUTOMATION TESTER-D implant - post implant QRS 130 ms - reviewed post-implant instructions - no medication changes - Follow up in device clinic for wound/device check in ~10 days??([facility]) Wound Care: -Wound will heal in [...] [facility] Encounter Non-Invasive [place] [address] Arrived documented as of this encounter Visit Diagnoses Not on filedocumented in this encounter Care Teams Commodity Industry Analyst Relationship Specialty Start Date End Date Lolly Oliveira MD [address] [place] [address] PCP - General 07/17/13 documented as of this encounter
--- OUTSIDE RECORDS SUMMARY | 2024-02-02 11:20 | XMS_ITS | Encounter Summary ---
Author Organization [facility] [place] [address] Care Team Providers Care Sill Worker Name Role Phone Lolly Oliveira MD Primary Care Provider [phone] Encounter Details Date Type Department Care Team (Late st Contact Info) Description 05/18/2023 Refill Dermatology at [address] [address] Nora Meredith LPN Social History [...] patient. She voiced understanding. Order sent to [facility] drug. documented in this encounter Plan of Treatment Upcoming Encounters Date Type Department Care Team (Late st Contact Info) Description 04/15/2024 10:00 AM EST Hospital Encounter [place] [address] Arrived documented as of this encounter Visit Diagnoses Not on filedocumented in this encounter Care Teams Sill Worker Relationship Specialty Start Date End Date Lolly Oliveira MD [address] [place] [address] PCP - General 07/17/13 documented as of this encounter
--- OUTSIDE RECORDS SUMMARY | 2024-02-02 11:20 | XMS_ITS | Encounter Summary ---
[place] [address] Care Team Providers Care Benefits Specialist Recruiter Name Role Phone Lolly Oliveira MD Primary Care Provider [phone] Encounter Details Date Type Department Care Team [...] AM EST Hospital Encounter Non-[place] [address] Arrived documented as of this encounter Visit Diagnoses Not on filedocumented in this encounter Care Teams Benefits Specialist Recruiter Relationship Specialty Start Date End Date Lolly Oliveira MD [address] [place] [address] PCP - General 07/17/13 documented as of this encounter
--- OUTSIDE RECORDS SUMMARY | 2024-02-02 11:20 | XMS_ITS | Encounter Summary ---
Author Organization [facility] Address [facility] [place] [address] Care Team Providers Care Benefit Director Name Role Phone Lolly Oliveira MD Primary Care Provider [phone] Reason for Visit * Auth/Cert (Routine) Specialty Diagnoses / Procedures Referred By Contac t Referred To Contact Diagnoses Left bundle-branch block, unspecified Other cardiomyopathies Left bundle branch block [I44.7]Nonischemic cardiomyopathy [I42.8] Procedures PRG CATH PLMT LEFT HEART CATH & ARTS W/INJ & ANGIO IMG S&I ELECTROPHYSIOLOGY PROCEDURE Lalit Mcmahon MD [facility] [place] [address] [facility] Referral ID Status Reason Start Date Expiration Date Visits Re quested Visits Authorized [id number] 1 1 Encounter Details Date Type Department Care Team (Latest Contact Info) Description 07/23/2022 11:39 AM EDT - 07/24/2022 10:23 AM EDT Hospital [place] [phone] Lalit Mcmahon MD [facility] [place] [address] Left bundle branch block; Nonischemic cardiomyopathy; Cardiac resynchronization therapy defibrillator (VEHICLE FUEL SYSTEMS CONVERTER-D) in place Discharge Disposition: Home Social History [...] Luna Mott Patient Age: 71 y.o. Language: Burmese Race: White Ethnicity: Not nor Admit date: 07/23/2022 Discharge date and time: 07/24/22 Attending Physician: Lalit Mcmahon MD Discharge Physician: Lalit Mcmahon MD Follow-up Recommendations for Providers: - s/p VEHICLE FUEL SYSTEMS CONVERTER-D implant - post implant QRS 130 ms - reviewed post-implant instructions - no medication changes - Follow up in device clinic for wound/device check in ~10 days ([facility]) Inpatient Provider Contact Information: Cardiac Electrophysiology - Discharge Diagnoses (Hospital Problems) and Secondary Diagnoses (Chronic Problems): Active Hospital Problems Diagnosis ??? HFrEF (heart failure with reduced ejection fraction) Resolved Hospital Problems No resolved problems to display. Active Non-Hospital Problems Diagnosis ??? Dermatofibroma ??? Nevus ??? Solar lentigo Operations/Major Procedures: 07/23/22: [facility] VEHICLE FUEL SYSTEMS CONVERTER-D implant History of Presentation: 71 y.o. female with a history of HFrEF, LBBB, QRS >150, NYHA II who is POD#1 of VEHICLE FUEL SYSTEMS CONVERTER-D implant ([employer]). Hospital Course: Elective admission for VEHICLE FUEL SYSTEMS CONVERTER-D implant Admitted post-implant for pain management, telemetry [...] (heart failure with reduced ejection fraction) [I50.20] VEHICLE FUEL SYSTEMS CONVERTER-D implant Admission Condition: good Indication for Admission: [...] g Refills: 3 fluticasone propionate 50 mcg/actuation [place], Suspension Commonly known as: Flonase 1 spray [...] F. The office scheduling phone number is [phone]. ARM MOVEMENT RESTRICTIONS POST-IMPLANT - Do not [...] please call the Cardiac ElectrophysiologyTriage Nurse at [phone], option 3. General Instructions None Discharge References/Attachments [...] F. The office scheduling phone number is [phone]. ARM MOVEMENT RESTRICTIONS POST-IMPLANT - Do not [...] please call the Cardiac ElectrophysiologyTriage Nurse at [phone], option 3. documented in this encounter Medications [...] with spacer fluticasone propionate (Flonase) 50 mcg/actuation [place], Suspension 1 spray by Each Nare route [...] Cardiac Electrophysiology Post-Implant Device Interrogation Luna Mott [id number] 07/24/2022 History: Luna Mott is a 71 y.o. female with a history of HFrEF, LBBB, QRS >150, NYHA II who is POD#1 of VEHICLE FUEL SYSTEMS CONVERTER-D implant ([employer]). Overall feels well this morning. Ready [...] WOB Neuro- A&Ox3 Device Interrogation: Data ?? Balance Clerk Model # Serial # Generator [employer] [id number] Atrial Lead [employer] [id number] RV Lead [employer] [id number] [id number] LV Lead [employer] [id number] ?? Diagnostics Pacing Mode: DDD 60-130 Underlying Rhythm: Dane Atrial Episodes: None Ventricular Episodes: None FINAL PROGRAMMING: Pacing: Mode Lower rate (ppm) Upper rate (ppm) ?? DDD 60 130 VF: Rate (bpm) #Antitachycardia pacing First shock energy (J) ?? 200 Quick convert 41 VT: 170 Monitor only Monitor only ? Battery and Leads Impedances (ohms) Sensing (mV) Thresholds HV RA RV LV RA RV LV RA RV LV 73 [id number] (LVa) 7.7 13.1 >25 0.4V @ 0.4 ms 0.4V @ 0.4 ms 0.5 V @ 1.0 ms POD#1 CXR: All leads in nominal positioning Impression: 71 y.o. female who is s/p VEHICLE FUEL SYSTEMS CONVERTER-D implant for LBBB, NYHA II, HFrEF. - Appropriate device function post-implant - CXR negative for post-implant complications - Changed sensed AV delay from 130 to 110 Plan: 1. Reviewed standard post-implant discharge instructions (see patient instructions) including arm restrictions, wound care, bathing, and driving 2. No medication changes. 3. Follow up in device clinic for wound/device check in ~10 days ([facility]) Fadi Nunez MD 07/24/2022 Pager: [phone] I met with the patient today and [...] agreement. ? Dr. Lalit Mcmahon, electrophysiology attending ([id number]) * Zaria Wright RN - 07/23/2022 8:28 [...] HF, QRS > 150 ms presents for VEHICLE FUEL SYSTEMS CONVERTER-D placement. ROS: Denies recent fevers or chills [...] 0.9) flush 5 mL 5 mL Intravenous [id number] ramos MD ??? sodium chloride 0.9 % [...] HF, QRS > 150 ms presents for VEHICLE FUEL SYSTEMS CONVERTER-D placement. Backup would be LBBAP lead. Antibiotics: cefazolin Rationales for, intended benefits and potential risk of planned procedures reviewed. The patient indicated understanding and agreement with the plan. Informed consent signed. Procedure checklist completed. Fadi Nunez MD Cardiac Electrophysiology Fellow [facility] Pager [phone] 07/23/2022 I met with the patient today [...] agreement. ? Dr. Lalit Mcmahon, electrophysiology attending ([id number]) documented in this encounter Miscellaneous Notes * Brief Op Note - Lalit Mcmahon MD - 07/23/2022 4:04 PM EDT Brief Operative Note Patient Name: Luna Mott : [id number] MR#: [id number] Case Date: 07/23/2022 Surgeon: Surgeon(s) and Role: * Lailt Mcmahon MD - Primary Preoperative diagnosis: Left [...] AM EST Hospital Encounter Non-[place] [address] Arrived Scheduled Orders Name Type Priority Associated Diagnoses Orde r Schedule EKG 12 Lead ECG Routine Cardiac resynchronization therapy defibrillator (VEHICLE FUEL SYSTEMS CONVERTER-D) in place One Time for 1 Occurrences [...] (Bezet) 522 ms MUSE SYSTEM Calculated R [place] 78 degrees MUSE SYSTEM Calculated T [place] -71 degrees MUSE SYSTEM INTERPRETATION AV dual-paced [...] result was not included. BIVENTRICULAR ICD IMPLANTATION Small Business Banking Officer: Lalit Mcmahon MD Fellow: Fadi Nunez MD [...] lateral branch of the CS in the UKRAINIAN view. This branch was cannulated with a [...] the entire procedure. LEAD AND GENERATOR DATA: Balance Clerk Model # Serial # Generator [employer] [id number] Atrial Lead [employer] [id number] RV Lead [employer] [id number] [id number] LV Lead [employer] [id number] PACE/SENSE DATA: Sensed wave (mV) Threshold (V) [...] 300 CONCLUSIONS: Successful implantation of a [employer] biventricular ICD for primary prevention and treatment of symptoms related to congestive heart failure. Follow up in EP clinic in 1-2 months. Procedures performed: new ICD system ( cpt 36329-L4); implant LV lead at time of ICD insertion (cpt 43528) I have read, edited and approve of this report: Lalit Mcmahon MD S Cardiac Electrophysiology 07/23/2022 4:22 PM Procedure Note Lalit Mcmahon MD - 07/23/2022 BIVENTRICULAR ICD IMPLANTATION Small Business Banking Officer: Lalit Mcmahon MD Fellow: Fadi Nunez MD [...] appropriate lateralbranch of the CS in the UKRAINIAN view. This branch was cannulated with a [...] in the entireprocedure. LEAD AND GENERATOR DATA: Balance Clerk Model # Serial # Generator [employer] [id number] Atrial Lead [employer] [id number] [id number] RV Lead [employer] [id number] [id number] LV Lead [employer] [id number] [id number] PACE/SENSE DATA: Sensed wave (mV) Threshold (V) [...] 300 CONCLUSIONS: Successful implantation of a [employer] biventricular ICD forprimary prevention and treatment of symptoms related to congestive heartfailure. Follow up in EP clinic in 1-2 months. Procedures performed: new ICD system ( cpt 98971-B0); implant LV lead attime of ICD insertion (cpt 72485) I have read, edited and approve of this report: Lalit Mcmahon MD [facility] Cardiac Electrophysiology 07/23/2022 4:22 PM Lalit Mcmahon MD EP PROCEDURE ORDERAB LES * POCT Glucose (07/23/2022 12:54 PM EDT) Glucose, POC 83 65 - 199 mg/dL [facility] Comment: Supplemental ranges: <140 mg/dL before meals <180 mg/dL all other times of the day Blood 07/23/2022 12:5 4 PM EDT 07/23/2022 12:54 PM EDT Lalit Mcmahon MD POINT OF CARE TEST O RDERABLES Performing Organization Address [facility] Co de Phone Number [facility] [place] [address] * EKG 12 Lead (07/23/2022 12:33 PM EDT) Ventricular rate 72 BPM MUSE SYSTEM Atrial Rate 72 BPM MUSE SYSTEM P-R Interval 158 ms MUSE SYSTEM QRS Duration 176 ms MUSE SYSTEM Q-T Interval 458 ms MUSE SYSTEM QTC Calculated (Bezet) 501 ms MUSE SYSTEM Calculated P [place] 34 degrees MUSE SYSTEM Calculated R [place] 12 degrees MUSE SYSTEM Calculated T [place] -173 degrees MUSE SYSTEM INTERPRETATION Normal sinus rhythm Left bundle branch block Abnormal ECG No previous ECGs available Confirmed by MD Salome, Lalit ([id number]) on 07/23/2022 1:19:03 PM MUSE SYSTEM 07/23/2022 12:3 3 PM EDT 07/23/2022 1:19 PM EDT Lalit Mcmahon MD ECG ORDERABLES Performing Organization Address [facility] de Phone Number MUSE SYSTEM * Differential, Automated (07/23/2022 11:55 AM EDT) Neutrophil % 62.6 % [facility] Neutrophil Absolute 4.14 1.70 - 6.10 x10(3)/[facility] Lymph % 27.0 % [facility] Lymphocytes Abs 1.8 0.9 - 3.2 x10(3)/[facility] Monocyte % 7.3 % [facility] Monocyte Abs 0.5 0.3 - 0.9 x10(3)/[facility] Eos % 2.3 % [facility] Eosinophils Abs 0.2 0.0 - 0.4 x10(3)/[facility] Basophil % 0.6 % [facility] Baso Absolute 0.0 0.0 - 0.1 x10(3)/[facility] Immature Gran % 0.20 % [facility] Comment: Immature granulocytes(IG's)percentage and [...] Lab Lalit Mcmahon MD HEMATOLOGY ORDERABLE S [facility] [place] [address] * Hemogram (07/23/2022 11:55 AM EDT) White Blood Cell 6.6 4.0 - 9.5 x10(3)/[facility] Red Blood Cell 4.50 4.00 - 5.21 x10(6)/[facility] Hemoglobin 13.7 11.7 - 15.5 g/dL [facility] Hematocrit 42.5 35.7 - 45.8 % [facility] Mean Cell Volume 94.4 82.6 - 94.4 fL [facility] Mean Cell Hemoglobin 30.4 27.1 - 32.0 pg [facility] Mean Cell Hemoglobin Concentration 32.2 31.7 - 35.0 g/dL [facility] Platelet 193 145 - 357 x10(3)/[facility] RDW Standard Deviation 45.5 37.0 - 46.0 fL [facility] RDW coefficient of variation 13.2 11.5 - 14.1 % [facility] Mean Platelet Volume 9.5 7.6 - 12.9 fL [facility] NRBC% auto 0.0 % [facility] NRBC Absolute 0.000 0.000 - 0.000 x10(3)/mcL [facility] Blood 07/23/2022 11:5 5 AM EDT 07/23/2022 12:07 PM EDT Narrative Resulting Agency Comment Spec In Lab Lalit Mcmahon MD HEMATOLOGY ORDERABLE S [facility] [address] [place] [address] * (ABNORMAL) BMP w/fasting Glucose (07/23/2022 11:55 AM EDT) Glucose Fasting 110(H) 65 - 99 mg/dL [facility] Comment: ?Fasting* Glucose Interpretive [...] Urea Nitrogen 23(H) 8 - 18 mg/dL [facility] Creatinine 1.07 0.70 - 1.20 mg/dL [facility] Sodium 141 135 - 145 mmol/L [facility] Potassium 4.8 3.5 - 5.0 mmol/L [facility] Comment: Please note: ??Patients with WBC >100,000 may have falsely elevated Potassium levels. ??For accurate Potassium quantification in these patients send serum separator tube (gold top) for subsequent determinations. ??Contact the Clinical Chemistry Laboratory if there are any questions. Chloride 106 98 - 107 mmol/L [facility] Carbon Dioxide 26 22 - 31 mmol/L [facility] Anion Gap 9 5 - 15 mmol/L [facility] Calcium 9.7 8.5 - 10.5 mg/dL [facility] Est Glomerular Filtration Rate 55(L) >=60 mL/min/1. 73 m?? [facility] Comment: This patient's estimated [...] CHEMISTRY ORDERABLES Performing Organization Address [facility] Co de Phone Number [facility] [place] [address] * Prothrombin Time (07/23/2022 11:55 AM EDT) Prothrombin Time 11.7 9.4 - 12.5 sec [facility] International Normalization Ratio 1.0 [facility] Comment: An INR <2.0 [...] MD HEMATOLOGY ORDERABLE S Performing Organization Address City/[facility] Co de Phone Number [facility] [place] [address] documented in this encounter Visit Diagnoses Diagnosis HFrEF (heart failure with reduced ejection fraction)- Primary Left bundle branch block Other left bundle branch block Nonischemic cardiomyopathy Other primary cardiomyopathies Cardiac resynchronization therapy defibrillator (VEHICLE FUEL SYSTEMS CONVERTER-D) in place Left bundle branch block Other [...] Routine documented in this encounter Care Teams Benefit Director Relationship Specialty Start Date End Date Lolly Oliveira MD [address] [place] [address] PCP - General 07/17/13 documented as of this encounter
--- OUTSIDE RECORDS SUMMARY | 2024-02-02 11:20 | XMS_ITS | Encounter Summary ---
Author Organization [facility] [place] [address] Care Team Providers Care Air Bag Builder Name Role Phone Lolly Oliveira MD Primary Care Provider [phone] Encounter Details Date Type Department Care Team (Late st Contact Info) Description 03/15/2023 Telephone Cardiology at [address] [phone] Saranya Ma Social History Tobacco Use Types [...] to have an echo done at [facility] prior to her appt withmdm there on 05/12/23. Message sent to Dr. Mcmahon asking him to put order in if he would like her to have this done. Saranya Ma Sr. Clinical Procedure Public Health Director/Barrelhead Inspector documented in this encounter Plan of Treatment Upcoming Encounters Date Type Department Care Team (Late st Contact Info) Description 04/15/2024 10:00 AM EST Hospital Encounter Non-Invasive [place] [address] Arrived documented as of this encounter Visit Diagnoses Not on filedocumented in this encounter Care Teams Air Bag Builder Relationship Specialty Start Date End Date Lolly Oliveira MD [address] [place] [address] PCP - General 07/17/13 documented as of this encounter
--- OUTSIDE RECORDS SUMMARY | 2024-02-02 11:20 | XMS_ITS | Encounter Summary ---
Author Organization [facility] [place] [address] Care Team Providers Care Area Loss Prevention Manager Name Role Phone Lolly Oliveira MD Primary Care Provider [phone] Reason for Visit * Reason Comments Follow-up Encounter Details Date Type Department Care Team (Late st Contact Info) Description 07/02/2022 8:00 AM EDT Office Visit Dermatology at [address] [phone] Clay Ramírez MD [address] [facility] [place] [address] Psoriasis, guttate Social History Tobacco Use Types [...] st Contact Info) Description 04/15/2024 10:00 AM [facility] Hospital Encounter Non-Invasive [place] [phone] Arrived documented as of this encounter Visit Diagnoses Diagnosis Psoriasis, guttate Other psoriasis documented in this encounter Care Teams Area Loss Prevention Manager Relationship Specialty Start Date End Date Lolly Oliveira MD [address] [place] [address] PCP - General 07/17/13 documented as of this encounter
--- OUTSIDE RECORDS SUMMARY | 2024-02-02 11:20 | XMS_ITS | Encounter Summary ---
Author Organization [facility] Address [facility] [place] [address] Care Team Providers Care Comfort Station Attendant Name Role Phone Lolly Oliveira MD Primary Care Provider [phone] Encounter Details Date Type Department Care Team (Late st Contact Info) Description 01/29/2023 Notes Only Cardiology at [address] [address] Merle Lin PA [facility] [place] [address] Social History Tobacco Use Types Packs/Day Years [...] pdf document Date of transmission: 01/29/2023 Device nougat cutter machine: BSI Device type: MANAGEMENT TECH-D Presenting rhythm: /RVP/LVP AP 21% Right PRECINCT I POLICE SERGEANT 100% Left PRECINCT I POLICE SERGEANT: 100% Battery: 10.5 years [employer] Index rising in setting of increasing S3 intensity, increasing respiratory rate, increasing night heart rate, and increasing mean heart rate. MICKEY Villa 01/29/2023 9:06 AM documented in this encounter Plan of Treatment Upcoming Encounters Date Type Department Care Team (Late st Contact Info) Description 04/15/2024 10:00 AM EST Hospital Encounter [place] [address] Arrived documented as of this encounter Visit Diagnoses Not on filedocumented in this encounter Care Teams Comfort Station Attendant Relationship Specialty Start Date End Date Lolly Oliveira MD [address] [place] [address] PCP - General 07/17/13 documented as of this encounter
--- OUTSIDE RECORDS SUMMARY | 2024-02-02 11:20 | XMS_ITS | Encounter Summary ---
Author Organization [facility] [place] [address] Care Team Providers Care Phlebotomist Prn Name Role Phone Lolly Oliveira MD Primary Care Provider [phone] Reason for Visit * Reason Onset Date Comments Other 07/24/2022 Implanted Cardia c Device Teaching/Education Encounter Details Date Type Department Care Team (Late st Contact Info) Description 07/24/2022 Notes Only Cardiology at [address] [phone] Letha Arroyo Other (Implanted Cardiac Device Teaching/Education) [...] to call the Cardiac Device Clinic at [phone] with any questions. Plan: Post op check: [...] [facility] Encounter Non-Invasive [place] [address] Arrived documented as of this encounter Visit Diagnoses Not on filedocumented in this encounter Care Teams Phlebotomist Prn Relationship Specialty Start Date End Date Lolly Oliveira MD [address] [place] [address] PCP - General 07/17/13 documented as of this encounter
--- OUTSIDE RECORDS SUMMARY | 2024-02-02 11:20 | XMS_ITS | Encounter Summary ---
Author Organization [facility] [place] [address] Care Team Providers Care Coder Operator Name Role Phone Lolly Oliveira MD Primary Care Provider [phone] Encounter Details Date Type Department Care Team (Latest Contact Info) Description 10/23/2022 10:00 AM EDT - 10/23/2022 11:59 PM EDT Hospital Encounter [place] [address] Discharge Disposition: Home Social History Tobacco Use [...] with spacer fluticasone propionate (Flonase) 50 mcg/actuation [place], Suspension 1 spray by Each Nare route [...] Contact Info) Description 04/15/2024 10:00 AM [facility] Hospital Encounter [place] [address] Arrived documented as of this [...] on filedocumented in this encounter Care Teams Coder Operator Relationship Specialty Start Date End Date Lolly Oliveira MD [address] [place] [address] PCP - General 07/17/13 documented as of this encounter
--- OUTSIDE RECORDS SUMMARY | 2024-02-02 11:20 | XMS_ITS | Encounter Summary ---
Author Organization [facility] Address [facility] [place] [address] Care Team Providers Care Account Supervisor Name Role Phone Lolly Oliveira MD Primary Care Provider [phone] Encounter Details Date Type Department Care Team (Late st Contact Info) Description 03/15/2023 Orders Only Cardiology at [address] [phone] Lalit Mcmahon MD [facility] [place] [place] [address] Nonischemic cardiomyopathy; Biventricular ICD (implantable cardioverter-defibrill ator) [...] AM EST Hospital Encounter Non-Invasive [place] [address] Arrived documented as of this encounter Visit Diagnoses Diagnosis Nonischemic cardiomyopathy Other primary cardiomyopathies Biventricular ICD (implantable cardioverter-defibrillator) in place documented in this encounter Care Teams Account Supervisor Relationship Specialty Start Date End Date Lolly Oliveira MD [address] [place] [address] PCP - General 07/17/13 documented as of this encounter
--- OUTSIDE RECORDS SUMMARY | 2024-02-02 11:20 | XMS_ITS | Encounter Summary ---
Author Organization Counts Include [facility] Address [facility] [place] [address] Care Team Providers Care Oxyacetylene Cutter Name Role Phone Lolly Oliveira MD Primary Care Provider [phone] Encounter Details Date Type Department Care Team (Late st Contact Info) Description 05/03/2023 Telephone Cardiology at [address] [phone] Lalit Mcmahon MD [facility] [place] [address] Social History Tobacco Use Types Packs/Day Years [...] AM EST Hospital Encounter Non-Invasive [place] [address] Arrived documented as of this encounter Visit Diagnoses Not on filedocumented in this encounter Care Teams Oxyacetylene Cutter Relationship Specialty Start Date End Date Lolly Oliveira MD [address] [place] [address] PCP - General 07/17/13 documented as of this encounter
--- OUTSIDE RECORDS SUMMARY | 2024-02-02 11:20 | XMS_ITS | Encounter Summary ---
Author Organization [facility] [place] [address] Care Team Providers Care Business Office Director Name Role Phone Lolly Oliveira MD Primary Care Provider [phone] Reason for Referral * Diagnostic Test (Routine) - Closed Specialty Diagnoses / Procedures Referred By Contac t Referred To Contact Radiology Diagnoses Left bundle branch block Nonischemic cardiomyopathy Procedures MRI Cardiac Morphology Function With Flow Velocity Quantification [facility] Contrast MRI Cardiac Morphology Function wwo Contrast Lalit Mcmahon MD [facility] [place] [address] [place] [address] Referral ID Status Reason Start Date Expiration Date V isits Requested Visits Authorized [id number] Closed Specialty Service Requested 05/06/2022 11/07/2023 2 1 Reason for Visit * Diagnostic Test (Routine) - Closed Specialty Diagnoses / Procedures Referred By Contac t Referred To Contact Radiology Diagnoses Left bundle branch block Nonischemic cardiomyopathy Procedures MRI Cardiac Morphology Function With Flow Velocity Quantification o Contrast MRI Cardiac Morphology Function wwo Contrast Lalit Mcmahon MD [facility] [place] [address] [place] [address] Referral ID Status Reason Start Date Expiration Date V isits Requested Visits Authorized [id number] Closed Specialty Service Requested 05/06/2022 11/07/2023 2 1 Encounter Details Date Type Department Care Team (Latest Contact Info) Description 07/14/2022 9:08 AM EDT Hospital Encounter MRI at [facility] [place] [address] Lalit Mcmahon MD [facility] [address] [place] [address] Left bundle branch block; Nonischemic cardiomyopathy Discharge [...] with spacer fluticasone propionate (Flonase) 50 mcg/actuation [place], Suspension 1 spray by Each Nare route [...] 71 y.o. : 1950 [address] [facility] [address] Female [phone] (home) No relevant phone numbers on file. Lolly Oliveira MD None Allergies Allergen Reactions ??? Sulfa (Sulfonamide Antibiotics) Date/Time of call: July 07, 2022/11:03 AM/ PREVIOUS MRI SCAN? HEIGHT: WEIGHT: SCHEDULED SCAN: MRI CARDIAC MORPHOLOGY FUNCTION WITH FLOW VELOCITY QUANTIFICATION WWO CONTRAST [[id number]] Order Questions Answers Where will study be performed? [facility] Radiology [120] SUBJECTIVE: Very Claustrophobic [...] ( [place] ) You must have a wheat combine driver present when you check in. This patient has been informed that they require a wheat combine driver to drive them home after this procedure. In the absence of a wheat combine driver, IR will not be able to sedate for your scan. Pt verbalized understanding of these instructions during the pre-procedure education via phone. Yes Name of wheat combine driver: Daughter Phone number: PRIOR SCAN DATE/S SEDATION TYPE SUCCESSFUL 07/14/22 MRI Cardiac Morphology Function with Flow Velocity Quantification wwo Contrast Ativan 1mg x 1 dose Pass Revised 08/03/17 documented in this encounter Plan of Treatment Upcoming Encounters Date Type Department Care Team (Late st Contact Info) Description 04/15/2024 10:00 AM [facility] Hospital Encounter [place] [address] Arrived documented as of this encounter Procedures [...] questions please contact the health hospice care consultant that requested your imaging first. ? Electronically signed by: Greyson Herron MD, [facility] ([phone]), at 07/15/2022 9:53 AM Narrative 07/15/2022 9:53 [...] have questions please contactthe health hospice care consultant that requested your imaging first. Lalit [...] mg documented in this encounter Care Teams Business Office Director Relationship Specialty Start Date End Date Lolly Oliveira MD [address] [place] [address] PCP - General 07/17/13 documented as of this encounter
--- OUTSIDE RECORDS SUMMARY | 2024-02-02 11:20 | XMS_ITS | Encounter Summary ---
Author Organization [facility] [place] [address] Care Team Providers Care Dairy Grazer Name Role Phone Lolly Oliveira MD Primary Care Provider [phone] Reason for Visit * Auth/Cert (Routine) Specialty Diagnoses / Procedures Referred By Contac t Referred To Contact Diagnoses Left bundle-branch block, unspecified Other cardiomyopathies Left bundle branch block [I44.7]Nonischemic cardiomyopathy [I42.8] Procedures PRG CATH PLMT LEFT HEART CATH & ARTS W/INJ & ANGIO IMG S&I ELECTROPHYSIOLOGY PROCEDURE Lalit Mcmahon MD [facility] [place] [address] [facility] Referral ID Status Reason Start Date Expiration Date Visits Re quested Visits Authorized [id number] 1 1 Encounter Details Date Type Department Care Team (Late st Contact Info) Description 07/23/2022 1:00 PM EDT - 07/23/2022 5:30 PM EDT Surgery [place] [address] Lalit Mcmahon MD [facility] [place] [address] ELECTROPHYSIOLOGY PROCEDURE Social History Tobacco Use Types Packs/Day Years Used Date Smoking Tobacco: Never Tobacco Cessation:Counseling Given: Not Answered Alcohol Use Standard Drinks/Week Comments Not Currently 0 (1 standard drink = 0.6 oz pur e alcohol) [facility] Inpatient Questions Answer Date Recorded Does [...] Luna Mott Patient Age: 71 y.o. Language: Albanian Race: White Ethnicity: Not nor Admit date: 07/23/2022 Discharge date and time: 07/24/22 Attending Physician: Lalit Mcmahon MD Discharge Physician: Lalit Mcmahon MD Follow-up Recommendations for Providers: - s/p PRACTICE SUPPORT SPECIALIST-D implant - post implant QRS 130 [...] Nevus ??? Solar lentigo Operations/Major Procedures: 07/23/22: [facility] PRACTICE SUPPORT SPECIALIST-D implant History of Presentation: 71 y.o. female with a history of HFrEF, LBBB, QRS >150, NYHA II who is POD#1 of PRACTICE SUPPORT SPECIALIST-D implant ([employer]). Hospital Course: Elective admission for PRACTICE SUPPORT SPECIALIST-D implant Admitted post-implant for pain management, [...] (heart failure with reduced ejection fraction) [I50.20] PRACTICE SUPPORT SPECIALIST-D implant Admission Condition: good Indication for [...] Refills: 3 fluticasone propionate 50 mcg/actuation [place], Suspension Commonly known as: Flonase 1 spray [...] incision. Make sure to use a cloth feeder (such as a towel) in between the [...] F. The office scheduling phone number is [phone]. ARM MOVEMENT RESTRICTIONS POST-IMPLANT - Do not [...] please call the Cardiac ElectrophysiologyTriage Nurse at [phone], option 3. General Instructions None Discharge References/Attachments [...] incision. Make sure to use a cloth feeder (such as a towel) in between the [...] F. The office scheduling phone number is [phone]. ARM MOVEMENT RESTRICTIONS POST-IMPLANT - Do not [...] please call the Cardiac ElectrophysiologyTriage Nurse at [phone], option 3. documented in this encounter Medications [...] spacer fluticasone propionate (Flonase) 50 mcg/actuation [place], Suspension 1 spray by Each Nare route [...] Cardiac Electrophysiology Post-Implant Device Interrogation Luna Mott [id number] 07/24/2022 History: Luna Mott is a 71 y.o. female with a history of HFrEF, LBBB, QRS >150, NYHA II who is POD#1 of PRACTICE SUPPORT SPECIALIST-D implant ([employer]). Overall feels well this morning. Ready [...] WOB Neuro- A&Ox3 Device Interrogation: Data ?? Biological Photographer Model # Serial # Generator [employer] [id number] Atrial Lead [employer] [id number] RV Lead [employer] [id number] [id number] LV Lead [employer] [id number] ?? Diagnostics Pacing Mode: DDD 60-130 Underlying Rhythm: [place] Atrial Episodes: None Ventricular Episodes: None FINAL PROGRAMMING: Pacing: Mode Lower rate (ppm) Upper rate (ppm) ?? DDD 60 130 VF: Rate (bpm) #Antitachycardia pacing First shock energy (J) ?? 200 Quick convert 41 VT: 170 Monitor only Monitor only ? Battery and Leads Impedances (ohms) Sensing (mV) Thresholds HV RA RV LV RA RV LV RA RV LV 73 [phone] (LVa) 7.7 13.1 >25 0.4V @ 0.4 ms 0.4V @ 0.4 ms 0.5 V @ 1.0 ms POD#1 CXR: All leads in nominal positioning Impression: 71 y.o. female who is s/p PRACTICE SUPPORT SPECIALIST-D implant for LBBB, NYHA II, HFrEF. [...] [facility]) Fadi Nunez MD 07/24/2022 Pager: [phone] I met with the patient today and [...] agreement. ? Dr. Lalit Mcmahon, electrophysiology attending ([id number]) * Zaria Wright RN - 07/23/2022 8:28 [...] HF, QRS > 150 ms presents for PRACTICE SUPPORT SPECIALIST-D placement. ROS: Denies recent fevers or [...] 0.9) flush 5 mL 5 mL Intravenous [id number] ramos MD ??? sodium chloride 0.9 % (flush) (BD PosiFlush Normal Saline 0.9) flush 5-20 mL 5-20 mL Intravenous Q1 Min PRN Lalit Mcmahon MD ??? lidocaine (Xylocaine) 1% (10 mg/mL) injection 3 mg 0.3 mL Subcutaneous Once PRN Lalit Mcmahon MD ??? ceFAZolin (Ancef) 2 g vial attach to sodium chloride 0.9% 100 mL Mini-Bag Plus 2 g Intravenous Once Lalit Mcmhaon MD PAST SURGICAL HISTORY: History reviewed. No [...] HF, QRS > 150 ms presents for PRACTICE SUPPORT SPECIALIST-D placement. Backup would be LBBAP lead. Antibiotics: cefazolin Rationales for, intended benefits and potential risk of planned procedures reviewed. The patient indicated understanding and agreement with the plan. Informed consent signed. Procedure checklist completed. Fadi Nunez MD Cardiac Electrophysiology Fellow [facility] Pager [phone] 07/23/2022 I met with the patient today [...] agreement. ? Dr. Lalit Mcmahon, electrophysiology attending ([id number]) documented in this encounter Miscellaneous Notes * Brief Op Note - Lalit Mcmahon MD - 07/23/2022 4:04 PM EDT Brief Operative Note Patient Name: Luna Mott : [id number] MR#: [id number] Case Date: 07/23/2022 Surgeon: Surgeon(s) and Role: [...] AM EST Hospital Encounter Non-[place] [address] Arrived Scheduled Orders Name Type Priority Associated Diagnoses Orde r Schedule EKG 12 Lead ECG Routine Cardiac resynchronization therapy defibrillator (PRACTICE SUPPORT SPECIALIST-D) in place One Time for 1 [...] (Bezet) 522 ms MUSE SYSTEM Calculated R [place] 78 degrees MUSE SYSTEM Calculated T [place] -71 degrees MUSE SYSTEM INTERPRETATION AV dual-paced [...] who have questions please contact the health lpn care manager that requested your imaging first. ? Electronically signed by: Kwame Vargas MD, [facility] ([phone]), at 07/24/2022 6:43 AM Narrative 07/24/2022 6:43 [...] patients who have questions please contactthe health lpn care manager that requested your imaging first. Electronically signed by: Kwame Vargas MD, [facility]([phone]), at 07/24/2022 6:43 AM Lalit Mcmahon MD IMG DX ORDERABLES * ELECTROPHYSIOLOGY PROCEDURE (07/23/2022 1:11 PM EDT) Anatomical Region Laterality Modality Other Narrative 07/23/2022 4:24 PM EDT Table formatting from the original result was not included. BIVENTRICULAR ICD IMPLANTATION Biomedical Manager: Lalit Mcmahon MD Fellow: Fadi Nunez [...] lateral branch of the CS in the BELARUSIAN view. This branch was cannulated with a [...] the entire procedure. LEAD AND GENERATOR DATA: Biological Photographer Model # Serial # Generator [employer] [id number] Atrial Lead [employer] [id number] [id number] RV Lead [employer] [id number] [id number] LV Lead [employer] [id number] PACE/SENSE DATA: Sensed wave (mV) Threshold (V) [...] (cGycm2) 300 CONCLUSIONS: Successful implantation of a [employer] biventricular ICD for primary prevention and treatment of symptoms related to congestive heart failure. Follow up in EP clinic in 1-2 months. Procedures performed: new ICD system ( cpt 14659-Y4); implant LV lead at time of ICD insertion (cpt 15873) I have read, edited and approve of this report: Lalit Mcmahon MD [facility] Cardiac Electrophysiology 07/23/2022 4:22 PM Procedure Note Lalit Mcmahon MD - 07/23/2022 BIVENTRICULAR ICD IMPLANTATION Biomedical Manager: Lalit Mcmahon MD Fellow: Fadi Nunez [...] appropriate lateralbranch of the CS in the BELARUSIAN view. This branch was cannulated with a [...] in the entireprocedure. LEAD AND GENERATOR DATA: Biological Photographer Model # Serial # Generator [employer] [id number] Atrial Lead [employer] [id number] [id number] RV Lead [employer] 0672 [id number] LV Lead [employer] [id number] PACE/SENSE DATA: Sensed wave (mV) Threshold (V) [...] (cGycm2) 300 CONCLUSIONS: Successful implantation of a [employer] biventricular ICD forprimary prevention and treatment of symptoms related to congestive heartfailure. Follow up in EP clinic in 1-2 months. Procedures performed: new ICD system ( cpt 55782-G7); implant LV lead attime of ICD insertion (cpt 23505) I have read, edited and approve of this report: Lalit Mcmahon MD S Cardiac Electrophysiology 07/23/2022 4:22 PM Lalit Mcmahon MD EP PROCEDURE ORDERAB LES * POCT Glucose (07/23/2022 12:54 PM EDT) [facility] Signature Glucose, POC 83 65 - 199 mg/dL [facility] Comment: Supplemental ranges: <140 mg/dL before meals <180 mg/dL all other times of the day Blood 07/23/2022 12:5 4 PM EDT 07/23/2022 12:54 PM EDT Lalit Mcmahon MD POINT OF CARE TEST O RDERABLES Performing Organization Address City/[facility]/ZIP Co de Phone Number [facility] [place] [place] [address] * EKG 12 Lead (07/23/2022 12:33 PM EDT) Ventricular rate 72 BPM MUSE SYSTEM Atrial Rate 72 BPM MUSE SYSTEM P-R Interval 158 ms MUSE SYSTEM QRS Duration 176 ms MUSE SYSTEM Q-T Interval 458 ms MUSE SYSTEM QTC Calculated (Bezet) 501 ms MUSE SYSTEM Calculated P [place] 34 degrees MUSE SYSTEM Calculated R [place] 12 degrees MUSE SYSTEM Calculated T [place] -173 degrees MUSE SYSTEM INTERPRETATION Normal sinus rhythm Left bundle branch block Abnormal ECG No previous ECGs available Confirmed by MD Salome, Lalit ([id number]) on 07/23/2022 1:19:03 PM MUSE SYSTEM 07/23/2022 12:3 3 PM EDT 07/23/2022 1:19 PM EDT Lalit Mcmahon MD ECG ORDERABLES Performing Organization Address [facility]/ZIP Co de Phone Number MUSE SYSTEM * Differential, Automated (07/23/2022 11:55 AM EDT) Neutrophil % 62.6 % [facility] Neutrophil Absolute 4.14 1.70 - 6.10 x10(3)/[facility] Lymph % 27.0 % [facility] Lymphocytes Abs 1.8 0.9 - 3.2 x10(3)/[facility] Monocyte % 7.3 % [facility] Monocyte Abs 0.5 0.3 - 0.9 x10(3)/[facility] Eos % 2.3 % [facility] Eosinophils Abs 0.2 0.0 - 0.4 x10(3)/[facility] Basophil % 0.6 % [facility] LAB[facility] Baso Absolute 0.0 0.0 - 0.1 x10(3)/[facility] Immature Gran % 0.20 % [facility] Comment: Immature granulocytes(IG's)percentage and absolute count will include metamyelocytes, myelocytes, and promyelocytes. Blood smears from CBCs yielding IG's will be scanned manually for concordance. If this scan disagrees with the automated IG or if promyelocytes are noted, a manual differential will be performed. Immature Gran Absolute 0.01 0.00 - 0.04 x10(3)/[facility] Blood 07/23/2022 11:5 5 AM EDT 07/23/2022 12:07 PM EDT Narrative Resulting Agency Comment Spec In Lab Lalit Mcmahon MD HEMATOLOGY ORDERABLE S [facility] [place] [address] * Hemogram (07/23/2022 11:55 AM EDT) White Blood Cell 6.6 4.0 - 9.5 x10(3)/[facility] Red Blood Cell 4.50 4.00 - 5.21 x10(6)/[facility] Hemoglobin 13.7 11.7 - [...] HOSPITAL LABORATORY Platelet 193 145 - 357 x10(3)/[facility] RDW Standard Deviation 45.5 37.0 - 46.0 fL [facility] RDW coefficient of variation 13.2 11.5 - 14.1 % [facility] Mean Platelet Volume 9.5 7.6 - 12.9 fL [facility] NRBC% auto 0.0 % [facility] NRBC Absolute 0.000 0.000 - 0.000 x10(3)/[facility] Blood 07/23/2022 11:5 5 AM EDT 07/23/2022 12:07 PM EDT Narrative Resulting Agency Comment Spec In Lab Lalit Mcmahon MD HEMATOLOGY ORDERABLE S [facility] [place] [address] * (ABNORMAL) BMP w/fasting Glucose (07/23/2022 11:55 [...] of Diabetes Mellitus, Position Statement from the [place] [employer]. ??Diabetes Care, Volume 33, Supplement 1, Mar 2009 Blood Urea Nitrogen 23(H) 8 - 18 mg/dL [facility] Creatinine 1.07 0.70 - 1.20 mg/dL [facility] Sodium 141 135 - 145 [...] Chloride 106 98 - 107 mmol/L [facility] Carbon Dioxide 26 22 - 31 mmol/L [facility] Anion Gap 9 5 - 15 mmol/L [facility] Calcium 9.7 8.5 - 10.5 mg/dL [facility] Est Glomerular Filtration Rate 55(L) >=60 mL/min/1. 73 m?? [facility] Comment: This patient's estimated GFR [...] Mcmahon MD CHEMISTRY ORDERABLES Performing Organization Address [facility] Co de Phone Number [facility] [place] [address] * Prothrombin Time (07/23/2022 11:55 AM EDT) [...] HEMATOLOGY ORDERABLE S Performing Organization Address City/[facility] Co de Phone Number [facility] [place] [address] documented in this encounter Visit Diagnoses Diagnosis HFrEF (heart failure with reduced ejection fraction)- Primary Left bundle branch block Other left bundle branch block Nonischemic cardiomyopathy Other primary cardiomyopathies Cardiac resynchronization therapy defibrillator (PRACTICE SUPPORT SPECIALIST-D) in place Left bundle branch block [...] Oral, EVERY 4 HOURS PRN, Starting on Ymra 07/23/22 at 1646, Until 07/24/22 at 1232, [...] Routine documented in this encounter Care Teams Dairy Grazer Relationship Specialty Start Date End Date Lolly Oliveira MD [address] [place] [address] PCP - General 07/17/13 documented as of this encounter
--- OUTSIDE RECORDS SUMMARY | 2024-02-02 11:21 | XMS_ITS | Encounter Summary ---
Author Organization [facility] [place] [address] Care Team Providers Care Tire Cord Weaver Name Role Phone Lolly Oliveira MD Primary Care Provider [phone] Encounter Details Date Type Department Care Team (Latest Contact Info) Description 07/18/2013 [place] [address] Alia Fraire MD [facility] DIAGNOST[place] [address] Mammographic microcalcification (Primary Dx) Social History Tobacco [...] Hospital Encounter Non[place] [address] Arrived documented as of this encounter Results [...] are present on specimen digital X-ray. A [employer]iva-Stereo 13 Cylinder marker clip was placed. [...] calcifications are present on specimendigital X-ray. A [employer] Eviva-Stereo 13 Cylinder marker clip was placed. [...] does not layer and, therefore, are not mill representative of milk of calcium. Again, these [...] does not layer and, therefore, are not mill representative of milk of calcium. Again, these have an amorphous andpunctate appearance and remain indeterminate. Stereotactic guided biopsy isrecommended. Alia Fraire MD IMG MAMMO ORDERABLES documented in this encounter Visit Diagnoses Diagnosis Mammographic microcalcification- Primary Mammographic microcalcification Mammographic microcalcification Mammographic microcalcification Mammographic microcalcification documented in this encounter Care Teams Tire Cord Weaver Relationship Specialty Start Date End Date Lolly Oliveira MD [address] [place] [address] PCP - General 07/17/13 documented as of this encounter
--- OUTSIDE RECORDS SUMMARY | 2024-02-02 11:21 | XMS_ITS | Encounter Summary ---
Author Organization [facility] [place] [address] Care Team Providers Care Table Hand Name Role Phone Lolly Oliveira MD Primary Care Provider [phone] Encounter Details Date Type Department Care Team (Latest Contact Info) Description 07/17/2013 8:40 AM EDT - 07/17/2013 11:59 PM EDT Hospital Encounter XRay at [address] [place] [address] CLIN[address], [facility] Discharge Disposition: Home Social [...] AM EST Hospital Encounter Non-Invasive [place] [address] Arrived documented as of this encounter Visit Diagnoses Not on filedocumented in this encounter Care Teams Table Hand Relationship Specialty Start Date End Date Lolly Oliveira MD [address] [place] [address] PCP - General 07/17/13 documented as of this encounter
--- OUTSIDE RECORDS SUMMARY | 2024-02-02 11:21 | XMS_ITS | Encounter Summary ---
Author Organization [facility] [place] [address] Care Team Providers Care Cutter Banana Room Name Role Phone Unavailable Primary Care Provider Unavailabl e Encounter Details Date Type Department Care Team (Late st Contact Info) Description 07/14/2013 External Results XRay at [address] [place] [address] Provider, Scanning Social History Tobacco Use Types [...] Hospital Encounter Non-Invasive Cardiology Lab [facility] [place] [address] Arrived documented as of this encounter Procedures [...]
--- OUTSIDE RECORDS SUMMARY | 2024-02-02 11:21 | XMS_ITS | Encounter Summary ---
Author Organization [facility] [place] [address] Care Team Providers Care Clinical Social Work Aide Name Role Phone Lolly Oliveira MD Primary Care Provider [phone] Encounter Details Date Type Department Care Team (Latest Contact Info) Description 07/26/2013 9:44 AM EDT - 07/26/2013 11:59 PM EDT Hospital [place] [address] CLINIC, Lolly So MD [address] [place], [place] [id number] Mammographic microcalcification Discharge Disposition: Home Social History [...] Hospital Encounter Non-[place] [address] Arrived documented as of this encounter Procedures [...] are present on specimen digital X-ray. A [employer]-Stereo 13 Cylinder marker clip was placed. Cranio-caudal and lateral digital mammography performed to determine biopsy marker placement, which was shown to be 1 cm from the biopsy site in lateral direction. Satisfactory sampling was obtained. There were no procedural complications. Imaging diagnosis: FCD versus adenosis versus DCIS. Pathologic diagnosis: adenosis, small radial sclerosing lesion completely excised Procedure Note Eleno Chritsian MD - 07/28/2013 VACUUM ASSISTED STEREOTACTIC GUIDED [...] mLs documented in this encounter Care Teams Clinical Social Work Aide Relationship Specialty Start Date End Date Lolly Oliveira MD [address] [place] [address] PCP - General 07/17/13 documented as of this encounter
--- OUTSIDE RECORDS SUMMARY | 2024-02-02 11:21 | XMS_ITS | Encounter Summary ---
Author Organization [place] [place] [address] Care Team Providers Care Molder Setter Name Role Phone Lolly Oliveira MD Primary Care Provider [phone] Encounter Details Date Type Department Care Team (Latest Contact Info) Description 07/26/2013 9:45 AM EDT - 07/26/2013 11:59 PM EDT Hospital En[place] [address] Mammographic microcalcification Social History Tobacco Use Types [...] AM EST Hospital Encounter Non-[place] [address] Arrived documented as of this encounter Procedures [...] microcalcification documented in this encounter Care Teams Molder Setter Relationship Specialty Start Date End Date Lolly Oliveira MD [address] [place] [address] PCP - General 07/17/13 documented as of this encounter
--- OUTSIDE RECORDS SUMMARY | 2024-02-02 11:21 | XMS_ITS | Encounter Summary ---
[place] [address] Care Team Providers Care Tier Truck Driver Name Role Phone Lolly Oliveira MD Primary Care Provider [phone] Encounter Details Date Type Department Care Team (Late st Contact Info) Description 07/17/2013 Orders [place] [phone] Lolly Oliveira MD [address] [place], [place] [id number] Social History Tobacco Use Types Packs/Day Years [...] Encounter Non-Invasive [place] [address] Arrived documented as of this encounter Procedures [...] (PERFORMED ON 07/06/13 AND 07/14/13) FROM [facility] DATED 07/17/13: ?? DIAGNOSTIC IMAGING [...] OUTSIDE MAMMOGRAMS (PERFORMED ON 07/06/13 AND 07/14/13) [facility] DATED 07/17/13: DIAGNOSTIC IMAGING SUMMARY: [...] Date Lolly Oliveira MD [address] [place] [address] PCP - General 07/17/13 documented as of this encounter
--- OUTSIDE RECORDS SUMMARY | 2024-02-02 11:21 | XMS_ITS | Encounter Summary ---
Author Organization [facility] [place] [address] Care Team Providers Care Radio Communication Coordinator Name Role Phone Lolly Oliveira MD Primary Care Provider [phone] Encounter Details Date Type Department Care Team (Late st Contact Info) Description 06/29/2011 [place] [phone] Eleno Christian MD [facility] [place] [address] Social History Tobacco Use Types Packs/Day Years [...] AM EST Hospital Encounter Non-[place] [address] Arrived documented as of this encounter Procedures [...] filedocumented in this encounter Care Teams Radio Communication Coordinator Relationship Specialty Start Date End Date Lolly Oliveira MD [address] [place] [address] PCP - General 07/17/13 documented as of this encounter
--- OUTSIDE RECORDS SUMMARY | 2024-02-02 11:21 | XMS_ITS | Encounter Summary ---
Author Organization [place] [address] Care Team Providers Care Top Executive Name Role Phone Unavailable Primary Care Provider Unavailabl e Encounter Details Date Type Department Care Team (Late st Contact Info) Description 07/04/2012 Orders [place] [phone] Eleno Christian MD [facility] [place] [address] Social History Tobacco Use Types Packs/Day Years [...] AM EST Hospital Encounter Non-In[place] [address] Arrived documented as of this encounter Procedures [...]
--- OUTSIDE RECORDS SUMMARY | 2024-02-02 11:21 | XMS_ITS | Encounter Summary ---
Author Organization [facility] [place] [address] Care Team Providers Care Manifest/Order Organizer Print Orders Name Role Phone Unavailable Primary Care Provider Unavailabl e Encounter Details Date Type Department Care Team (Late st Contact Info) Description 07/14/2013 [place] [address] Eleno Christian MD [facility] [place] [address] Social History Tobacco Use Types Packs/Day Years [...] AM EST Hospital Encounter Non-[place] [address] Arrived documented as of this encounter Visit Diagnoses Not on filedocumented in this encounter
--- OUTSIDE RECORDS SUMMARY | 2024-02-02 11:21 | XMS_ITS | Encounter Summary ---
Author Organization [facility] [place] [address] Care Team Providers Care Electronic Coils Supervisor Name Role Phone Lolly Oliveira MD Primary Care Provider [phone] Encounter Details Date Type Department Care Team (Late st Contact Info) Description 07/26/2013 Orders [place] [phone] Eleno Christian MD [facility] [place] [address] Social History Tobacco Use Types Packs/Day Years [...] AM EST Hospital Encounter Non-[place] [address] Arrived documented as of this encounter Visit Diagnoses Not on filedocumented in this encounter Care Teams Electronic Coils Supervisor Relationship Specialty Start Date End Date Lolly Oliveira MD [address] [place] [address] PCP - General 07/17/13 documented as of this encounter
--- OUTSIDE RECORDS SUMMARY | 2024-02-02 11:21 | XMS_ITS | Encounter Summary ---
Author Organization [facility] [place] [address] Care Team Providers Care Kaiawhina Name Role Phone Lolly Oliveira MD Primary Care Provider [phone] Encounter Details Date Type Department Care Team (Latest Contact Info) Description 07/20/2013 9:26 AM EDT - 07/20/2013 11:59 PM EDT Hospital Encounter [place] [address] CLINIC, Lolly So MD [address] [place], [place] [phone] Mammographic microcalcification Discharge Disposition: Home Social History [...] AM EST Hospital Encounter Non[place] [address] Arrived documented as of this encounter Procedures [...] microcalcification documented in this encounter Care Teams Kaiawhina Relationship Specialty Start Date End Date Lolly Oliveira MD [address] [place] [address] PCP - General 07/17/13 documented as of this encounter
--- OUTSIDE RECORDS SUMMARY | 2024-02-02 11:21 | XMS_ITS | Encounter Summary ---
[place] [address] Care Team Providers Care Pcb Designer Name Role Phone Lolly Oliveira MD Primary Care Provider [phone] Encounter Details Date Type Department Care Team (Latest Contact Info) Description 07/26/2013 9:45 AM EDT - 07/26/2013 11:59 PM EDT Hospital En[place] [address] Mammographic microcalcification Social History Tobacco Use Types [...] AM EST Hospital Encounter Non-[place] [address] Arrived documented as of this encounter Procedures Procedure Name Priority Date/Time Associated Diagnosis Comments SURGICAL PATHOLOGY REPORT Routine 07/26/2013 12:12 PM EDT MAMMO SPECIMEN IMAGING DURING BIOPSY Routine 07/26/2013 11:58 AM EDT Mammographic microcalcification documented in this encounter Results * Surgical Pathology Report (07/26/2013 12:12 PM EDT) Final Diagnosis ? [facility] ? Provider: ?? ELENO CHRISTIAN ?? Pt. Name: ?? JING ALVARENGA ? Acc #: ?[id number] ?Pt. ? Col Date: ?? 07/26/2013 ? [...] Partially fragmented, fibrofatty needle core biopsies. ? [facility] ? Provider: ?? ELENO CHRISTIAN ?? Pt. Name: ?? JING ALVARENGA ? Acc #: ?[id number] ?Pt. ? Col Date: ?? 07/26/2013 ? [...] MD PATHOLOGY/CYTOLOGY O RDERABLES Performing Organization Address City/State/[facility] Co il Phone Number [facility] [place] [address] * Mammo Specimen Imaging During Biopsy (07/26/2013 [...] microcalcification documented in this encounter Care Teams Pcb Designer Relationship Specialty Start Date End Date Lolly Oliveira MD [address] [place] [address] PCP - General 07/17/13 documented as of this encounter
[2024-02-02 11:25] VITALS: BP 124/64; PULSE 72; O2SAT 95
== END 2024-02-05 23:59 | disposition home or self-care (01) ==
LOC: CR 11:17
PROVIDERS: PCP Family Medicine; Visit Provider Internal Medicine Cardiovascular Disease
DX: R69 Illness, unspecified (principal)

== ENCOUNTER 2024-03-03 11:05 | Outpatient (RCR) | payer SELFPAY ==
[2024-02-06 00:14] VITALS: BP 124/64; PULSE 72
[2024-02-11 11:06] VITALS: BP 135/75; PULSE 69; O2SAT 94
--- OUTSIDE RECORDS SUMMARY | 2024-02-16 11:36 | XMS_ITS | Encounter Summary ---
Author Organization [facility] [place] [address] Care Team Providers Care Clinical Product Specialist Name Role Phone Lolly Oliveira MD Primary Care Provider [phone] Encounter Details Date Type Department Care Team (Latest Contact Info) Description 01/16/2024 10:00 AM EST - 01/16/2024 11:59 PM EST Hospital Encounter Non-Invasive [place] [phone] Discharge Disposition: Home Social History Tobacco Use [...] with spacer fluticasone propionate (Flonase) 50 mcg/actuation Rice, Suspension 1 spray by Each Nare route daily as needed. documented as of this encounter Plan of Treatment Upcoming Encounters Date Type Department Care Team (Late st Contact Info) Description 04/15/2024 10:00 AM EST Hospital Encounter Non-Invasive [place] [address] Arrived documented as of this encounter Procedures [...] filedocumented in this encounter Care Teams Clinical Product Specialist Relationship Specialty Start Date End Date Lolly Oliveira MD [address] [place] [address] PCP - General 07/17/13 documented as of this encounter
--- OUTSIDE RECORDS SUMMARY | 2024-02-16 11:36 | XMS_ITS | Encounter Summary ---
Author Organization [facility] Address [address] [place] [address] Care Team Providers Care Business Analytics Faculty Member Name Role Phone Lolly Oliveira MD Primary Care Provider [phone] Encounter Details Date Type Department Care Team (Late st Contact Info) Description 03/06/2003 Results Only [facility] conversion [address] [place] [address] Lolly Oliveira MD [address] [place], [place] [id number] Social History Tobacco Use Types Packs/Day Years [...] ORDERABLES Final Resu lt [facility] [address] [place] [address] documented in this encounter Visit Diagnoses Not on filedocumented in this encounter Care Teams Business Analytics Faculty Member Relationship Specialty Start Date End Date Lolly Oliveira MD [address] [place] [address] PCP - General 11/13/08 documented as of this encounter
--- OUTSIDE RECORDS SUMMARY | 2024-02-16 11:36 | XMS_ITS | Encounter Summary ---
Author Organization [facility] Address [address] [place] [address] Care Team Providers Care Drafter Engineering Name Role Phone Lolly Oliveira MD Primary Care Provider [phone] Encounter Details Date Type Department Care Team (Late st Contact Info) Description 06/16/2012 Results Only [facility] [address], [place] [phone] Lolly Oliveira MD [address] [place], [place] [phone] Social History Tobacco Use Types Packs/Day Years [...] ? JING ALVARENGA ? Accession #: ? [id number] : ? 1950 (Age: 61) ??F ?Collect [...] ORDERABLES Final Resu lt [facility] [address] [place] [address] documented in this encounter Visit Diagnoses Not on filedocumented in this encounter Care Teams Drafter Engineering Relationship Specialty Start Date End Date Lolly Oliveira MD [address] [place] [address] PCP - General 11/13/08 documented as of this encounter
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
--- OUTSIDE RECORDS SUMMARY | 2024-02-16 11:36 | XMS_ITS | Encounter Summary ---
Author Organization [facility] Address [address] [place] [address] Care Team Providers Care Territory Account Representative Name Role Phone Lolly Oliveira MD Primary Care Provider [phone] Encounter Details Date Type Department Care Team (Late st Contact Info) Description 05/27/2021 Lab Requisition [facility] Medicine - [address] [address] Iman Moran, DO [address] [place], [place] [id number] Encounter for other general examination Social History [...] explore management options, if applicable. 05/30/2021 13:31 [facility] Final Diagnosis A. COLON, POLYP AT 90 CM, BIOPSY/POLYPECTOM Y: - Tubular adenoma. 05/30/2021 13:31 [facility] Attestation By the signature below, the attending physician certifies that they have 1) personally conducted a gross and/or microscopic examination of the described specimen(s), and/or personally interpreted the results of laboratory testing of the described specimen(s), and 2) personally rendered or confirmed the above diagnosis. 05/30/2021 13:31 [facility] at 1331 Clinical History Severe diverticula and polypectomy x1 05/30/2021 13:31 [facility] Gross Description A. Received in formalin labelled with proper patient identification (initials J, K) and colon polyp x1 at 90 cm is a light pineda polypoid tissue measuring 0.2 x 0.2 x 0.2 cm. Submitted intact in A1. MICKEY CARLOS(ASCP) 05/27/2021 19:11 05/30/2021 13:31 [facility] Performing Lab [facility] 05/30/2021 13:31 [facility] Scanned Images 05/30/2021 13:31 [facility] Tissue ENTIRE COLON / Unknown 05/27/2021 11:23 EDT 05/27/2021 16:33 EDT us Iman Moran DO PATHOLOGY ORDERABLES Final Re sult [facility] [address] [place] [address] documented in this encounter Visit Diagnoses Diagnosis Encounter for other general examination documented in this encounter Care Teams Territory Account Representative Relationship Specialty Start Date End Date Lolly Oliveira MD [address] [place] [address] PCP - General 11/13/08 documented as of this encounter
--- OUTSIDE RECORDS SUMMARY | 2024-02-16 11:36 | XMS_ITS | Encounter Summary ---
Author Organization [facility] [place] [address] Care Team Providers Care Loan Broker Name Role Phone Lolly Oliveira MD Primary Care Provider [phone] Encounter Details Date Type Department Care Team (Latest Contact Info) Description 10/18/2023 10:00 AM EDT - 10/18/2023 11:59 PM EDT Hospital Encounter [place] [id number] Discharge Disposition: Home Social History Tobacco Use [...] with spacer fluticasone propionate (Flonase) 50 mcg/actuation [place], Suspension 1 spray by Each Nare route daily as needed. documented as of this encounter Plan of Treatment Upcoming Encounters Date Type Department Care Team (Late st Contact Info) Description 04/15/2024 10:00 AM EST Hospital Encounter Non-[place] [address] Arrived documented as of this encounter Procedures [...] filedocumented in this encounter Care Teams Loan Broker Relationship Specialty Start Date End Date Lolly Oliveira MD [address] [place] [address] PCP - General 07/17/13 documented as of this encounter
--- OUTSIDE RECORDS SUMMARY | 2024-02-16 11:36 | XMS_ITS | Encounter Summary ---
Author Organization Pending Sale To [facility] Address [facility] [place] [address] Care Team Providers Care Campaign Management Senior Manager Name Role Phone Lolly Oliveira MD Primary Care Provider [phone] Encounter Details Date Type Department Care Team (Late st Contact Info) Description 01/29/2023 Notes Only Cardiology at [address] [address] Mrele Lin PA [facility] [place] [address] Social History Tobacco Use Types Packs/Day Years Used Date Smoking Tobacco: Never Alcohol Use Standard Drinks/Week Comments Not Currently 0 (1 standard drink = 0.6 oz pur e alcohol) [facility] Inpatient Questions Answer Date Recorded [...] pdf document Date of transmission: 01/29/2023 Device structural steel detailer: BSI Device type: CLINICAL ACCOUNT LIAISON-D Presenting rhythm: /RVP/LVP AP 21% Right INFORMATION AND DATA ARCHITECT ANALYST 100% Left INFORMATION AND DATA ARCHITECT ANALYST: 100% Battery: 10.5 years [employer] Index rising in setting of increasing S3 intensity, increasing respiratory rate, increasing night heart rate, and increasing mean heart rate. MICKEY Villa 01/29/2023 9:06 AM documented in this encounter Plan of Treatment Upcoming Encounters Date Type Department Care Team (Late st Contact Info) Description 04/15/2024 10:00 AM EST Hospital Encounter Non-[place] [address] Arrived documented as of this encounter Visit Diagnoses Not on filedocumented in this encounter Care Teams Campaign Management Senior Manager Relationship Specialty Start Date End Date Lolly Oliveira MD [address] [place] [address] PCP - General 07/17/13 documented as of this encounter
--- OUTSIDE RECORDS SUMMARY | 2024-02-16 11:36 | XMS_ITS | Encounter Summary ---
Author Organization [facility] Address [address] [place] [address] Care Team Providers Care Manager Library Name Role Phone Unavailable Primary Care Provider Unavailabl e Encounter Details Date Type Department Care Team (Late st Contact Info) Description 11/07/2008 Orders Only [facility] Laboratory Services - [facility] ([facility] [address] [place] [address] Kenneth Parker MD [address] [place] [address] Social History Tobacco Use Types Packs/Day Years [...] ? JING ALVARENGA ? Accession #: ? [id number] ? : ? 1950 (Age: 58) ??F [...] ORDERABLES Final Resu lt TOVA BLANCO [address] [place] [address] documented in this encounter Visit Diagnoses Not on filedocumented in this encounter
--- OUTSIDE RECORDS SUMMARY | 2024-02-16 11:36 | XMS_ITS | Data Portability ---
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 Information no t available 05/21/2023 Do You Always Fasten Your Seat Belt When You Are In A Car? Yes- Usually [email or web address] Information not available 05/21/2023 How Often During The Past Four Weeks Have You Been Bothered By Any Of The Following Problems? Falling Or Dizzy When Standing Up? Never [email or web address] Information not available 05/21/2023 Sexual Problems? Never [email or web address] Informat ion not available 05/21/2023 Trouble Eating Well? Sometimes [email or web address] Information not available 05/21/2023 Teeth Or Denture Problems? Sometimes [email or web address] Information not available 05/21/2023 Problems Using The Telephone? Never [email or web address] Information not available 05/21/2023 Tiredness Or Fatigue? Sometimes [email or web address] Information not available 05/21/2023 Have You Had 2 Or More Falls Or Sustained An Injury With A Fall In The Last Year? No [email or web address] Information no t available 05/21/2023 Do You Have Difficulty With Walking Or Balance? No [email or web address] Information not available 05/21/2023 Do You Currently Use A Hearing Device? No [email or web address] Information not available 05/21/2023 Do You Currently Have Any Trouble With Your Vision? Yes [email or web address] Information no t available 05/21/2023 Do You Exercise For About 20 Minutes Three Or More Days A Week? Yes- Most Of The Time [email or web address] Information not available 05/21/2023 Are There Any Safety Concerns In Your Home (see Attached [facility] Pamphlet)? No [email or web address] Information not available 05/21/2023 How Often Do You Have Trouble Taking Medicines The Way You Have Been Told To Take Them? I Always Take Them As Prescribed Information not available 05/21/2023 How Confident Are You That You Can Control And Manage Most Of Your Health Problems? Very Confident Information not available 05/21/2023 Do You Currently Have Any Difficulty With Your Hearing? No [email or web address] Information not available 05/21/2023 Date Of Most Recent SBINS 05/21/2023 [email or web address] Information not available 05/21/2023 What Was The Date Of Your Most Recent Tobacco Screening? 09/01/2023 Information not available 09/01/2023 Has Tobacco Cessation Counseling Been Provided? Yes Information not available 09/01/2023 On What Date Was Tobacco Cessation Counseling Provided? 09/01/2023 Information not available 09/01/2023 Do You Or Have You Ever Used Any Other Forms Of Tobacco Or Nicotine? No [email or web address] Information not available 05/21/2023 Sex: Female Functional [...] preservative free, adsorbed 9 completed Not Available [facility] 01/15/2023 04:53:39 Tdap 8 completed Not Available [facility] 01/15/2023 04:53:39 zoster live 3 completed Not Available [facility] 01/15/2023 04:53:40 Pneumococcal conjugate PCV 13 6 completed Not Available [facility] 01/15/2023 04:53:40 Influenza, high-dose, trivalent, PF 8 completed Not Available [facility] 01/15/2023 04:53:41 Td(adult) unspecified formulation 3 completed Not Available [facility] 01/15/2023 04:53:41 Influenza, split virus, trivalent, preservative 6 completed Not Available [facility] 01/15/2023 04:53:41 Influenza, split virus, trivalent, preservative 5 completed Not Available [facility] 01/15/2023 04:53:41 Influenza, split virus, quadrivalent, PF 9 completed Not Available [facility] 01/15/2023 04:53:41 zoster recombinant 9 completed Not Available [facility] 01/15/2023 04:53:42 zoster recombinant 8 completed Not Available [facility] 01/15/2023 04:53:42 Influenza, high-dose, quadrivalent, PF 1 completed Not Available [facility] 01/15/2023 04:53:43 Influenza, high-dose, quadrivalent, PF 0 completed Not Available [facility] 01/15/2023 04:53:43 Influenza, high-dose, quadrivalent, PF 2 completed Not Available [facility] 01/15/2023 04:53:43 COVID-19, mRNA, LNP-S, PF, 100 mcg/0.5mL dose or 50 mcg/0.25mL dose 2 completed Not Available [facility] 01/15/2023 04:53:43 COVID-19 vaccine, vector-nr, rS-Ad26, PF, 0.5 mL 1 completed Not Available [facility] 01/15/2023 04:53:44 SARS-COV-2 (COVID-19) vaccine, UNSPECIFIED 1 completed Not Available [facility] 01/15/2023 04:53:44 SARS-COV-2 (COVID-19) vaccine, UNSPECIFIED 1 completed Not Available [facility] 01/15/2023 04:53:44 pneumococcal polysaccharide PPV23 5 completed Not Available [facility] 01/15/2023 04:53:45 Hep B, unspecified formulation 4 completed Not Available [facility] 01/15/2023 04:53:45 Hep B, unspecified formulation 3 completed Not Available [facility] 01/15/2023 04:53:46 Hep B, unspecified formulation 3 completed Not Available [facility] 01/15/2023 04:53:46 influenza, unspecified formulation 0 completed Not Available [facility] 01/15/2023 04:53:47 influenza, unspecified formulation 3 completed Not Available [facility] 01/15/2023 04:53:47 influenza, unspecified formulation 9 completed Not Available [facility] 01/15/2023 04:53:47 influenza, unspecified formulation 1 completed Not Available [facility] 01/15/2023 04:53:47 influenza, unspecified formulation 7 completed Not Available [facility] 01/15/2023 04:53:48 influenza, unspecified formulation 4 completed Not Available [facility] 01/15/2023 04:53:48 influenza, unspecified formulation 8 completed Not Available [facility] 01/15/2023 04:53:48 influenza, unspecified formulation 2 completed Not Available [facility] 01/15/2023 04:53:48 Influenza, high-dose, quadrivalent, PF 3 completed Not Available [facility] 03/19/2023 05:33:03 COVID-19, mRNA, LNP-S, PF, herminio-sucrose, 30 mcg/0.3 mL 3 completed Not Available [facility] 03/19/2023 05:33:03 COVID-19, mRNA, LNP-S, bivalent, PF, 50 mcg/0.5 mL or 25mcg/0.25 mL dose 4 completed DENYS Bauer, [facility] 12/20/2023 15:23:33 Respiratory syncytial virus (RSV) vaccine, unspecified 4 completed DENYS Bauer, [facility] 12/20/2023 15:24:29 influenza, unspecified formulation 4 completed DENYS Bauer, [facility] 12/20/2023 15:25:14 Past Encounters Encounter ID Performer Location Encounter Start Date Encounter Closed Date Diagnosis/Indication Diagnosis SNOMED-CT Code Diagnosis ICD10 Code [id number] LOLLY CORTEZ MD [address] [address] 05/21/2023 10:03:54 05/21/2023 11:37:49 Onychomycosis 252904322 B35.1 Asthma 724989453 J45.90 9 Cardiomyopathy 86245373 I10 Disorder of hip joint 42 0201350 M12.859 Guttate psoriasis 778521 00 L40.4 Hyperlipidemia 09394161 E78.5 Vulval and /or perineal noninflammatory disorders 945257453 N90.9 Adult heal th examination 307809533 Z00.[id number] [place] [address] 09/01/2023 10:23:16 09/01/2023 13:28:10 Vertigo 172815677 R42 Impacted c erumen of bilateral ears 5961958791 259549 H61.23 [id number] LOLLY CORTEZ MD [facility] [address] [place] [address] 11/26/2023 07:26:08 11/26/2023 08:10:59 Screening mammography 51575945 Z12.31 Adjustment disorder 1722 6007 F43.20 Asthma 592944994 J45.90 9 Essential hypertension 34265565 I10 [place] psoriasis 285369 00 L40.4 Cardiomyopathy 29628974 I10 Hyperlipidemia 65793167 E78.5 Prediabetes 697292920 R7 3.03 Health Concerns Section Related Observation LastModified by Organization Detai ls LastModified Time None Recorded Concern Status LastModified by Organization Details LastModified Time None Recorded Advance Directives Directive None Recorded Payers Encounter Date Sequence Insurance Name Policy Number Policy Lema Covered Member ID Lema Member ID Guarantor Name 05/21/2023 1 [place] - [place]) [id number] Luna Mott [id number] Luna Mott 09/01/2023 1 [place]) [id number] Luna Mott [id number] Luna Lunaslin 11/26/2023 1 [place] - [place]) [id number] Luna Lunaslin [id number] Luna Mott Notes Date Note Type Note Provider Name and Address Organization Details Recorded Time 05/21/2023 text/html Thais here today for an annual wellness exam MD [address], [place], [address], [facility]. 05/24/2023 18:32:35 09/01/2023 text/html Luna [...] it. JESSICA INGRAM PA-C [address], [place], [address], [facility]. 09/01/2023 13:55:07 11/26/2023 text/html Thais here today for follow-up of cardiomyopathy, obesity MD [address], [place], [address], [facility]. 11/28/2023 09:26:44 OBGyn Episode No OBEpisode recorded.
--- OUTSIDE RECORDS SUMMARY | 2024-02-16 11:36 | XMS_ITS | Clinical Summary ---
Author Organization [facility] [place] [address] Care Team Providers Care Cleaner Wall Name Role Phone Lolly Oliveira MD Primary Care Provider [phone] Allergies Active Allergy Reactions Criticality Noted Date [...] spacer Active fluticasone propionate (Flonase) 50 mcg/actuation [place], Suspension 1 spray by Each Nare route [...] PM EST Hospital Encounter [place] [address] Discharge Disposition: Home from Last [...] AM EST Hospital Encounter Non[place] [address] Arrived Health Maintenance Due Date Last Done [...] series) 11/07/2023 Medical Devices Implanted Type Area Corn Chip Maker Device Identifier Shelf Expiration Date Model / Serial / Lot Bsx: [id number]: 096627-8/18/2 023 Implanted: by Lalit Mcmahon MD (Quantity not on file) Defibrillator Chest Wall [employer] [id number] / [id number] / Bsx: [id number]: 274054-2/18/2 023 Implanted: by Lalit Mcmahon MD (Quantity not on file) Lead Heart [employer] 4674 / [id number] / Bsx: [id number]: [id number] Implanted: by Lalit Mcmahon MD (Quantity not on file) Lead Heart [employer] 7841 / [id number] / Bsx: 0672: [id number]/18/2 023 Implanted: by Lalit Mcmahon MD (Quantity not on file) Lead Heart [employer] 0672 / [id number] / Procedures Procedure Name Priority Date/Time Associated [...] Status decision made by: Patient Care Teams Cleaner Wall Relationship Specialty Start Date End Date Lolly Oliveira MD [address] [place] [address] PCP - General 07/17/13
--- OUTSIDE RECORDS SUMMARY | 2024-02-16 11:36 | XMS_ITS | Clinical Summary ---
Author Organization [facility] Address [address] [place] [address] Care Team Providers Care Ship'S Pilot Name Role Phone Lolly Oliveira MD Primary Care Provider [phone] Social History Tobacco Use Types Packs/Day Years [...] 08/10/2023 COVID-19 Vaccine (2023- season) 2023 Insurance [facility] [employer]IC[employer] Care Teams Ship'S Pilot Relationship Specialty Start Date End Date Berrian, Lolly, MD [address] [place] [address] PCP - General 11/13/08
--- OUTSIDE RECORDS SUMMARY | 2024-02-16 11:36 | XMS_ITS | Encounter Summary ---
Author Organization [facility] [place] [address] Care Team Providers Care Bridge Repair Crew Person Name Role Phone Lolly Oliveira MD Primary Care Provider [phone] Reason for Visit * Reason Comments Follow-up 8 weeks UVB treatmen t twice weekly Encounter Details Date Type Department Care Team (Late st Contact Info) Description 07/19/2023 11:00 AM EDT Office Visit Dermatology at [address] [phone] Clay Ramírez MD [address], ERIKA A DERMATOLOGY [place], [place] [address] Psoriasis Social History Tobacco Use Types Packs/Day [...] [facility] Encounter Non-[place]vasive [place] [address] Arrived documented as of this encounter Visit Diagnoses Diagnosis Psoriasis Other psoriasis documented in this encounter Care Teams Bridge Repair Crew Person Relationship Specialty Start Date End Date Lolly Oliveira MD [address] [place] [address] PCP - General 07/17/13 documented as of this encounter
--- OUTSIDE RECORDS SUMMARY | 2024-02-16 11:36 | XMS_ITS | Encounter Summary ---
Author Organization [facility] Address [address] [place] [address] Care Team Providers Care Child Care Lead Teacher Name Role Phone Lolly Oliveira MD Primary Care Provider [phone] Encounter Details Date Type Department Care Team (Late st Contact Info) Description 04/01/2005 Results Only [facility] conversion [address] [place] [address] Blair Dukes MD [address] [place] [id number] Social History Tobacco Use Types Packs/Day Years [...] ? JING ALVARENGA ? Accession #: ? [id number] ? : ? 1950 (Age: 54) ??F [...] ? Received in [place]' s fixative labelled [place] and #1 ??terminal ileum bx is a single 0.3 x 0.2 x 0.2 cm tissue, submitted intact as (A). Received in [place]' s fixative labelled [place] and #2 ??transverse colon bx is a single 0.2 x 0.2 x 0.2 cm tissue, submitted intact as (B). ??(Dr. Lechuga)/[facility] End of Report [facility] 04/01/2005 04/02/2005 15: 24 EST us Blair Dukes MD PATHOLOGY ORDERABLES Final Resul t [facility] [address] [place] [address] documented in this encounter Visit Diagnoses Not on filedocumented in this encounter Care Teams Child Care Lead Teacher Relationship Specialty Start Date End Date Lolly Oliveira MD [address] [place] [address] PCP - General 11/13/08 documented as of this encounter
--- OUTSIDE RECORDS SUMMARY | 2024-02-16 11:36 | XMS_ITS | Encounter Summary ---
Author Organization [facility] Address [address] [place] [address] Care Team Providers Care Rent Control Office Manager Name Role Phone Lolly Oliveira MD Primary Care Provider [phone] Encounter Details Date Type Department Care Team (Late st Contact Info) Description 03/21/2019 Lab Requisition [facility] Pathology & Laboratory Medicine - [address] [address] Unknown, Provider, Social History Tobacco Use Types [...] 911 pg/mL 03/22/2019 11:52 EST [facility] Blood VENOUS BLOOD / Unknown 03/16/2019 9:25 EST 03/21/2019 21:35 EST us Provider Unknown CHEMISTRY & BLOOD GAS ORDERA BLES Final Result [facility] [address] [place] [address] documented in this encounter Visit Diagnoses Not on filedocumented in this encounter Care Teams Rent Control Office Manager Relationship Specialty Start Date End Date Lolly Oliveira MD [address] [place] [address] PCP - General 11/13/08 documented as of this encounter
--- OUTSIDE RECORDS SUMMARY | 2024-02-16 11:36 | XMS_ITS | Encounter Summary ---
Author Organization [facility] [place] [address] Care Team Providers Care Fur Dyer Name Role Phone Lolly Oliveira MD [...] Hospital Encounter Non[place] [address] Arrived documented as of this encounter Visit Diagnoses Not on filedocumented in this encounter Care Teams Fur Dyer Relationship Specialty Start Date End Date Lolly Oliveira MD [address] [place] [address] PCP - General 07/17/13 documented as of this encounter
--- OUTSIDE RECORDS SUMMARY | 2024-02-16 11:36 | XMS_ITS | Encounter Summary ---
Author Organization [place] [address] Care Team Providers Care Plant Controls Specialist Name Role Phone Lolly Oliveira MD Primary Care Provider [phone] Encounter Details Date Type Department Care Team (Late st Contact Info) Description 11/16/2022 Telephone Cardiology at [address] [phone] Luna Rousseau, RN Social History Tobacco Use Types Packs/Day Years Used Date Smoking Tobacco: Never Alcohol Use Standard Drinks/Week Comments Not Currently 0 (1 standard drink = 0.6 oz pur e alcohol) [facility] Inpatient Questions Answer Date Recorded [...] BP today was 118/57 at CR at [facility]. Pt is going twice a week to [...] [place] Hospital Encounter [place] [address] Arrived documented as of this encounter Visit Diagnoses Not on filedocumented in this encounter Care Teams Plant Controls Specialist Relationship Specialty Start Date End Date Lolly Oliveira MD [address] [place] [address] PCP - General 07/17/13 documented as of this encounter
--- OUTSIDE RECORDS SUMMARY | 2024-02-16 11:36 | XMS_ITS | Encounter Summary ---
Author Organization [facility] [place] [address] Care Team Providers Care Information Technology Analyst Name Role Phone Lolly Oliveira MD Primary Care Provider [phone] Encounter Details Date Type Department Care Team (Latest Contact Info) Description 04/21/2023 10:00 AM EST - 04/21/2023 11:59 PM EST Hospital Encounter [place] [address] Discharge Disposition: Home Social History Tobacco Use [...] AM EST Hospital Encounter [place] [address] Arrived documented as of this [...] in this encounter Care Teams Information Technology Analyst Relationship Specialty Start Date End Date Lolly Oliveira MD [address] [place] [address] PCP - General 07/17/13 documented as of this encounter
--- OUTSIDE RECORDS SUMMARY | 2024-02-16 11:36 | XMS_ITS | Encounter Summary ---
Author Organization [facility] [place] [address] Care Team Providers Care Electrical Hardware Engineer Name Role Phone Lolly Oliveira MD Primary Care Provider [phone] Encounter Details Date Type Department Care Team (Latest Contact Info) Description 07/20/2023 10:00 AM EDT - 07/20/2023 11:59 PM EDT Hospital Encounter Non-[place] [address] Discharge Disposition: Home Social History Tobacco Use [...] with spacer fluticasone propionate (Flonase) 50 mcg/actuation [place], Suspension 1 spray by Each Nare route daily as needed. documented as of this encounter Plan of Treatment Upcoming Encounters Date Type Department Care Team (Late st Contact Info) Description 04/15/2024 10:00 AM EST Hospital Encounter Non-[place] [address] Arrived documented as of this encounter Procedures [...] filedocumented in this encounter Care Teams Electrical Hardware Engineer Relationship Specialty Start Date End Date Lolly Oliveira MD [address] [place] [address] PCP - General 07/17/13 documented as of this encounter
--- OUTSIDE RECORDS SUMMARY | 2024-02-16 11:36 | XMS_ITS | Encounter Summary ---
Author Organization [facility] [place] [address] Care Team Providers Care Reimbursement Consultant Name Role Phone Lolly Oliveira MD Primary Care Provider [phone] Encounter Details Date Type Department Care Team (Late st Contact Info) Description 05/18/2023 Telephone Dermatology at [address] [address] Nora Meredith LPN Social History [...] st Contact Info) Description 04/15/2024 10:00 AM [facility] Hospital Encounter Non-[place] [address] Arrived documented as of this encounter Visit Diagnoses Not on filedocumented in this encounter Care Teams Reimbursement Consultant Relationship Specialty Start Date End Date Lolly Oliveira MD [address] [place] [address] PCP - General 07/17/13 documented as of this encounter
--- OUTSIDE RECORDS SUMMARY | 2024-02-16 11:36 | XMS_ITS | Encounter Summary ---
Author Organization [facility] Address [facility] [place] [address] Care Team Providers Care Tree Fruit And Nut Crops Farmer Name Role Phone Lolly Oliveira MD Primary Care Provider [phone] Encounter Details Date Type Department Care Team (Late st Contact Info) Description 11/11/2022 Orders Only Cardiology at [address] [phone] Lalit Mcmahon MD [facility] [place] [address] Nonischemic cardiomyopathy Social History Tobacco Use Types [...] Contact Info) Description 04/15/2024 10:00 AM [facility] Hospital Encounter [place] [address] Arrived documented as of this encounter Visit Diagnoses Diagnosis Nonischemic cardiomyopathy Other primary cardiomyopathies documented in this encounter Care Teams Tree Fruit And Nut Crops Farmer Relationship Specialty Start Date End Date Berrian, Lolly M, MD [address] [place] [address] PCP - General 07/17/13 documented as of this encounter
--- OUTSIDE RECORDS SUMMARY | 2024-02-16 11:36 | XMS_ITS | Encounter Summary ---
Author Organization [facility] [place] [address] Care Team Providers Care Physician Support Coordinator Name Role Phone Lolly Oliveira MD Primary Care Provider [phone] Encounter Details Date Type Department Care Team (Latest Contact Info) Description 01/21/2023 10:00 AM EST - 01/21/2023 11:59 PM EST Hospital Encounter [place] [address] Discharge Disposition: Home Social History Tobacco Use [...] with spacer fluticasone propionate (Flonase) 50 mcg/actuation [place], Suspension 1 spray by Each Nare route [...] AM EST Hospital Encounter Non-[place] [address] Arrived documented as of this [...] filedocumented in this encounter Care Teams Physician Support Coordinator Relationship Specialty Start Date End Date Lolly Oliveira MD [address] [place] [address] PCP - General 07/17/13 documented as of this encounter
--- OUTSIDE RECORDS SUMMARY | 2024-02-16 11:36 | XMS_ITS | Encounter Summary ---
Author Organization [facility] Address [address] [place] [address] Care Team Providers Care Brimmer Blocker Name Role Phone Lolly Oliveira MD Primary Care Provider [phone] Encounter Details Date Type Department Care Team (Late st Contact Info) Description 05/29/2002 Results Only [facility] conversion [address] [place] [address] Silvia Diehl, [address] [phone] Social History Tobacco Use Types Packs/Day Years [...] Name: ? LYLEJING ? Accession #: ? [id number] : ? 1950 (Age: 51) ??F ?Collect Date: ? 05/29/2002 Location: ? [facility] ? Receive Date: ? 05/31/2002 Provider: ?SILVIA DIEHL PUBLICATIONS DISTRIBUTION CLERK Copy to: ? Specimen/Source: ?ThinPrep Pap [...] [facility] 05/29/2002 05/31/2002 us Silvia Diehl PUBLICATIONS DISTRIBUTION CLERK PATHOLOGY ORDERABLES Final R esult [facility] [address] [place] [address] documented in this encounter Visit Diagnoses Not on filedocumented in this encounter Care Teams Brimmer Blocker Relationship Specialty Start Date End Date Lolly Oliveira MD [address] [place] [address] PCP - General 11/13/08 documented as of this encounter
--- OUTSIDE RECORDS SUMMARY | 2024-02-16 11:36 | XMS_ITS | Encounter Summary ---
Author Organization [facility] Address [address] [place] [address] Care Team Providers Care Pulley Mortiser Operator Name Role Phone Lolly Oliveira MD Primary Care Provider [phone] Encounter Details Date Type Department Care Team (Late st Contact Info) Description 04/12/2007 Results Only [facility] conversion [address] [place] [address] Lolly Oliveira MD [address] [place], [place] [id number] Social History Tobacco Use Types Packs/Day Years [...] ? JING ALVARENGA ? Accession #: ? [id number] : ? 1950 (Age: 56) ??F ?Collect Date: ? 04/12/2007 Location: ? [facility] ? Receive Date: ? 04/13/2007 Provider: ?LOLLY OLIVEIRA MD Copy to: ? Specimen/Source: ?ThinPrep Pap Test, Cervix/Endocervix, processed on [employer] ThinPrep Imaging System, with manual evaluation Last [...] ORDERABLES Final Resu lt [facility] [address] [place] [address] documented in this encounter Visit Diagnoses Not on filedocumented in this encounter Care Teams Pulley Mortiser Operator Relationship Specialty Start Date End Date Lolly Oliveira MD [address] [place] [address] PCP - General 11/13/08 documented as of this encounter
--- OUTSIDE RECORDS SUMMARY | 2024-02-16 11:36 | XMS_ITS | Encounter Summary ---
Author Organization [facility] [place] [address] Care Team Providers Care Mail Handler Equipment Operator Name Role Phone Lolly Oliveira MD Primary Care Provider [phone] Reason for Visit * Reason Onset Date Comments Post Procedure Call 07/30/2022 Encounter Details Date Type Department Care Team (Late st Contact Info) Description 07/30/2022 Notes Only Cardiology at [address] [phone] Rosenda Sutton, RN Post Procedure Call Social [...] 07/30/2022 9:59 AM EDTSummary: Post Procedure Call: CLERK SPECIALIST implant EP RN Post-Procedure Note: Date [...] Note: Follow-up Recommendations for Providers: - s/p CLERK SPECIALIST-D implant - post implant QRS 130 [...] [facility] Encounter [place] [address] Arrived documented as of this encounter Visit Diagnoses Not on filedocumented in this encounter Care Teams Mail Handler Equipment Operator Relationship Specialty Start Date End Date Lolly Oliveira MD [address] [place] [address] PCP - General 07/17/13 documented as of this encounter
--- OUTSIDE RECORDS SUMMARY | 2024-02-16 11:36 | XMS_ITS | Encounter Summary ---
Author Organization [facility] Address [address] [place] [address] Care Team Providers Care Craps Dealer Name Role Phone Lolly Oliveira MD Primary Care Provider [phone] Encounter Details Date Type Department Care Team (Late st Contact Info) Description 11/13/2020 Lab Requisition [facility] Pathology & Laboratory Medicine - [address] [address] Outr Resulting Lab, Provider Social History Tobacco [...] MICROBIOLOGY - GENER AL ORDERABLES Final Result [facility] [address] [place] [address] * COVID-19 TESTING (11/13/2020 7:30 EDT) COVID-19 rt-PCR Result Negative Negative 11/14/2020 11:46 EDT [facility] Comment: This [...] performed using the med SARS-CoV-2 assay (Stephanie [employer] on the Med 6800 System Performing Lab Med 6800 [facility] Lab 11/14/2020 11:46 EDT [facility] Swab 11/13/2020 7:30 EDT 11/13/2020 20:57 EDT us Provider Outr Resulting Lab MICROBIOLOGY - GENER AL ORDERABLES Final Result Performing Organization Address [facility] Co de Phone Number [facility] [address] [place] [address] documented in this encounter Visit Diagnoses Not on filedocumented in this encounter Care Teams Craps Dealer Relationship Specialty Start Date End Date Lolly Oliveira MD [address] [place] [address] PCP - General 11/13/08 documented as of this encounter
--- OUTSIDE RECORDS SUMMARY | 2024-02-16 11:36 | XMS_ITS | Encounter Summary ---
Author Organization [facility] Address [facility] [place] [address] Care Team Providers Care Munitions Factory Worker Name Role Phone Lolly Oliveira MD Primary Care Provider [phone] Encounter Details Date Type Department Care Team (Late st Contact Info) Description 03/15/2023 Orders Only Cardiology at [address] [address] Lalit Mcmahon MD [facility] [place] [address] Nonischemic cardiomyopathy; Biventricular ICD (implantable cardioverter-defibrill ator) [...] place documented in this encounter Care Teams Munitions Factory Worker Relationship Specialty Start Date End Date Lolly Oliveira MD [address] [place] [address] PCP - General 07/17/13 documented as of this encounter
--- OUTSIDE RECORDS SUMMARY | 2024-02-16 11:36 | XMS_ITS | Referral Summary ---
Author Organization [facility] Address [address] [place] [address] Care Team Providers Care Mastic Man Name Role Phone Lolly Oliveira MD Primary Care Provider [phone] Social History Tobacco Use Types Packs/Day Years Used Date Smoking Tobacco: Never Assessed Comments Unknown Sex and Gender Information Value Date Recorded Sex Assigned at Not on file Legal Sex Female 18:31 EST Gender Identity Not on file Sexual Orientation Not on file Plan of Treatment Not on file Insurance [facility] MEDICARE Care Teams Mastic Man Relationship Specialty Start Date End Date Lolly Oliveira MD [address] [place] [address] PCP - General 11/13/08
--- OUTSIDE RECORDS SUMMARY | 2024-02-16 11:36 | XMS_ITS | Encounter Summary ---
Author Organization [facility] [place] [address] Care Team Providers Care Glass Block Bender Name Role Phone Lolly Oliveira MD Primary Care Provider Encounter Details Date Type Department Care Team (Late st Contact Info) Description 05/18/2023 Refill Dermatology at [address] [address] Nora Meredith LPN Social History [...] patient. She voiced understanding. Order sent to [facility] drug. documented in this encounter Plan of Treatment Upcoming Encounters Date Type Department Care Team (Late st Contact Info) Description 04/15/2024 10:00 AM EST Hospital Encounter Non-Invasive [place] [address] Arrived documented as of this encounter Visit Diagnoses Not on filedocumented in this encounter Care Teams Glass Block Bender Relationship Specialty Start Date End Date Lolly Oliveira MD [address] [place] [address] PCP - General 07/17/13 documented as of this encounter
--- OUTSIDE RECORDS SUMMARY | 2024-02-16 11:36 | XMS_ITS | Encounter Summary ---
Author Organization [facility] Address [address] [place] [address] Care Team Providers Care Donor Relations Coordinator Name Role Phone Lolly Oliveira MD Primary Care Provider [phone] Encounter Details Date Type Department Care Team (Late st Contact Info) Description 04/25/2009 Orders Only [facility] Laboratory Services - [facility] [address] [place], [place] [phone] Lolly Oliveira MD [address] [place], [place] [phone] Social History Tobacco Use Types Packs/Day Years [...] ? JING ALVARENGA ? Accession #: ? [id number] ? : ? 1950 (Age: 58) ??F [...] ORDERABLES Final Resu lt Performing Organization Address [facility]/State/ZIP Co de Phone Number [facility] [address] [place] [address] documented in this encounter Visit Diagnoses Not on filedocumented in this encounter Care Teams Donor Relations Coordinator Relationship Specialty Start Date End Date Lolly Oliveira MD [address] [place] [address] PCP - General 11/13/08 documented as of this encounter
--- OUTSIDE RECORDS SUMMARY | 2024-02-16 11:36 | XMS_ITS | Encounter Summary ---
Author Organization [facility] Address [address] [place] [address] Care Team Providers Care Anime Artist Name Role Phone Lolly Oliveira MD Primary Care Provider [phone] Encounter Details Date Type Department Care Team (Late st Contact Info) Description 05/02/2004 Results Only [facility] conversion [address] [place] [address] Lolly Oilveira MD [address] [place], [place] [phone] Social History Tobacco Use Types Packs/Day Years [...] 68. [facility] Report Status Final [id number] [facility] 05/02/2004 9:32 EST 05/10/2004 9:32 EST us Lolly Oliveira MD MICROBIOLOGY - GENERAL ORDERABL ES Final Result [facility] [address] [place] [address] * CYTOPATHOLOGY (05/02/2004 0:00 EST) Pathology Report: CYTOPATHOLOGY REPORT Reports generated via electronic interface contain original data; however they are lacking the format of the original report. Caution should be taken when reading/interpreti ng unformatted reports. Name: ? JING ALVARENGA ? Accession #: ? [id number] : ? 1950 (Age: 53) ??F ?Collect [...] Final Resu lt Performing Organization Address City/State/[facility] Co de Phone Number [facility] [address] [place] [address] documented in this encounter Visit Diagnoses Not on filedocumented in this encounter Care Teams Anime Artist Relationship Specialty Start Date End Date Lolly Oliveira MD [address] [place] [address] PCP - General 11/13/08 documented as of this encounter
--- OUTSIDE RECORDS SUMMARY | 2024-02-16 11:36 | XMS_ITS | Encounter Summary ---
Author Organization [facility] Address [address] [place] [address] Care Team Providers Care Maintenance Planning Clerk Name Role Phone Lolly Oliveira MD Primary Care Provider [phone] Encounter Details Date Type Department Care Team (Late st Contact Info) Description 02/20/2020 Lab Requisition [facility] Pathology & Laboratory Medicine - [address] [phone] Outr Resulting Lab, Provider Social History Tobacco [...] in accordance with CLIA regulations, [employer] [place] [employer] (CAP) guidelines (May 25, 2019), and FDA guidance (May 06, 2019). This test is only for use under the Food and Drug Administration's Emergency Use Authorization. Swab ENTIRE NASOPHARYNX / Unknown 02/19/2020 16:30 EST 02/20/2020 16:09 EST us Provider Outr Resulting Lab MICROBIOLOGY - GENER AL ORDERABLES Final Result [facility] [place], [place] * COVID-19 TESTING (02/19/2020 16:30 EST) COVID-19 rt-PCR Result NEGATIVE Negative 02/22/2020 23:41 EST [facility] Comment: 2019-novel Coronavirus (2019-nCoV) not [...] in accordance with CLIA regulations, [employer] [employer] (CAP) guidelines (May 25, 2019), and FDA guidance (May 06, 2019). This test is only for use under the Food and Drug Administration's Emergency Use Authorization. Performing Lab [facility] 02/22/2020 23:41 EST [facility] Swab 02/19/2020 16:3 0 EST 02/20/2020 16:09 EST us Provider Outr Resulting Lab MICROBIOLOGY - GENER AL ORDERABLES Final Result [facility] [address] [place] [address] [facility] [place], [place] documented in this encounter Visit Diagnoses Not on filedocumented in this encounter Care Teams Maintenance Planning Clerk Relationship Specialty Start Date End Date Lolly Oliveira MD [address] [place] [address] PCP - General 11/13/08 documented as of this encounter
--- OUTSIDE RECORDS SUMMARY | 2024-02-16 11:36 | XMS_ITS | Encounter Summary ---
Author Organization [facility] Address [facility] [place] [address] Care Team Providers Care Valet Parker Name Role Phone Lolly Oliveira MD Primary Care Provider [phone] Encounter Details Date Type Department Care Team (Late st Contact Info) Description 05/03/2023 Telephone Cardiology at [address] [phone] Lalit Mcmahon MD [facility] [place] [address] Social History Tobacco Use Types Packs/Day Years [...] AM EST Hospital Encounter Non-[place] [address] Arrived documented as of this encounter Visit Diagnoses Not on filedocumented in this encounter Care Teams Valet Parker Relationship Specialty Start Date End Date Lolly Oliveira MD [address] [place] [address] PCP - General 07/17/13 documented as of this encounter
--- OUTSIDE RECORDS SUMMARY | 2024-02-16 11:36 | XMS_ITS | Encounter Summary ---
Author Organization [facility] [place] [address] Care Team Providers Care Biological Science Aide Name Role Phone Lolly Oliveira MD Primary Care Provider [phone] Encounter Details Date Type Department Care Team (Late st Contact Info) Description 03/17/2023 Telephone Cardiology at [address] [phone] Saranya Ma Social History Tobacco Use Types Packs/Day Years Used Date Smoking Tobacco: Never Alcohol Use Standard Drinks/Week Comments Not Currently 0 (1 standard drink = 0.6 oz pur e alcohol) [facility] Inpatient Questions Answer Date Recorded Does [...] 9:43 AM EST Echo order faxed to [facility] at [phone]. No Prior auth needed. Ref #:[id number]. Saranya Ma Sr. Clinical Procedure [place]/Catering Cook documented in this encounter Plan of Treatment Upcoming Encounters Date Type Department Care Team (Late st Contact Info) Description 04/15/2024 10:00 AM [facility] Hospital Encounter Non-[place] [address] Arrived documented as of this encounter Visit Diagnoses Not on filedocumented in this encounter Care Teams Biological Science Aide Relationship Specialty Start Date End Date Lolly Oliveira MD [address] [place] [address] PCP - General 07/17/13 documented as of this encounter
--- OUTSIDE RECORDS SUMMARY | 2024-02-16 11:36 | XMS_ITS | Encounter Summary ---
Author Organization [facility] [place] [address] Care Team Providers Care Supervisor White Sugar Name Role Phone Lolly Oliveira MD Primary Care Provider [phone] Encounter Details Date Type Department Care Team (Latest Contact Info) Description 10/23/2022 10:00 AM EDT - 10/23/2022 11:59 PM EDT Hospital Encounter [place] [address] Discharge Disposition: Home Social History Tobacco Use [...] with spacer fluticasone propionate (Flonase) 50 mcg/actuation [place], Suspension 1 spray by Each Nare route [...] [facility] Hospital Encounter [place] [address] Arrived documented as of this [...] filedocumented in this encounter Care Teams Supervisor White Sugar Relationship Specialty Start Date End Date Lolly Oliveira MD [address] [place] [address] PCP - General 07/17/13 documented as of this encounter
--- OUTSIDE RECORDS SUMMARY | 2024-02-16 11:36 | XMS_ITS | Encounter Summary ---
Author Organization [facility] Address [address] [place] [address] Care Team Providers Care Gin Operator Name Role Phone Lolly Oliveira MD Primary Care Provider [phone] Encounter Details Date Type Department Care Team (Late st Contact Info) Description 02/11/2021 Lab Requisition [facility] Pathology & Laboratory Medicine - [address] [phone] Outr Resulting Lab, Provider Social History Tobacco [...] MICROBIOLOGY - GENER AL ORDERABLES Final Result [facility] [address] [place] [address] * COVID-19 TESTING (02/11/2021 8:00 EST) COVID-19 rt-PCR Result Negative Negative 02/12/2021 14:17 EST [facility] Comment: This test has [...] performed using the med SARS-CoV-2 assay ([employer] on the Med 6800 System Performing Lab Med 68[address] [facility] Lab 02/12/2021 14:17 EST [facility] Swab 02/11/2021 8:00 EST 02/11/2021 22:22 EST us Provider Outr Resulting Lab MICROBIOLOGY - GENER AL ORDERABLES Final Result [facility] [address] [place] [address] documented in this encounter Visit Diagnoses Not on filedocumented in this encounter Care Teams Gin Operator Relationship Specialty Start Date End Date Lolly Oliveira MD [address] [place] [address] PCP - General 11/13/08 documented as of this encounter
--- OUTSIDE RECORDS SUMMARY | 2024-02-16 11:36 | XMS_ITS | Encounter Summary ---
Author Organization [facility] Address [address] [place] [address] Care Team Providers Care Ecommerce Merchandising Manager Name Role Phone Lolly Oliveira MD Primary Care Provider [phone] Encounter Details Date Type Department Care Team (Late st Contact Info) Description 04/17/2005 Results Only [facility] conversion [address] [place] [address] Lolly Oliveira MD [address] [place], [place] [phone] Social History Tobacco Use Types Packs/Day Years [...] ? JING ALVARENGA ? Accession #: ? [id number] : ? 1950 (Age: 54) ??F ?Collect Date: ? 04/17/2005 Location: ? [facility] ? Receive Date: ? 04/21/2005 Provider: ?LOLLY OLIVEIRA MD Copy to: ? Specimen/Source: ?ThinPrep Pap Test, Cervix/Endocervix, processed on [employer] ThinPrep Imaging System, with manual evaluation Last [...] Final Resu lt [facility] [address] [place] [address] documented in this encounter Visit Diagnoses Not on filedocumented in this encounter Care Teams Ecommerce Merchandising Manager Relationship Specialty Start Date End Date Lolly Oliveira MD [address] [place] [address] PCP - General 11/13/08 documented as of this encounter
--- OUTSIDE RECORDS SUMMARY | 2024-02-16 11:36 | XMS_ITS | Encounter Summary ---
Author Organization [facility] [place] [address] Care Team Providers Care Denture Packer Name Role Phone Lolly Oliveira MD Primary Care Provider [phone] Reason for Visit * Reason Onset Date Comments Other 07/24/2022 Implanted Cardia c Device Teaching/Education Encounter Details Date Type Department Care Team (Late st Contact Info) Description 07/24/2022 Notes Only Cardiology at [address] [phone] Letha Arroyo Other (Implanted Cardiac Device Teaching/Education) [...] to call the Cardiac Device Clinic at [phone] with any questions. Plan: Post op check: [...] [facility] Encounter Non[place] [address] Arrived documented as of this encounter Visit Diagnoses Not on filedocumented in this encounter Care Teams Denture Packer Relationship Specialty Start Date End Date Lolly Oliveira MD [address] [place] [address] PCP - General 07/17/13 documented as of this encounter
--- OUTSIDE RECORDS SUMMARY | 2024-02-16 11:36 | XMS_ITS | Encounter Summary ---
Author Organization [place] [address] Care Team Providers Care Environmental Services Director Name Role Phone Lolly Oliveira MD Primary Care Provider [phone] Encounter Details Date Type Department Care Team (Late st Contact Info) Description 03/15/2023 Telephone Cardiology at [address] [phone] Saranya Ma Social History Tobacco Use Types Packs/Day Years Used Date Smoking Tobacco: Never Alcohol Use Standard Drinks/Week Comments Not Currently 0 (1 standard drink = 0.6 oz pur e alcohol) [facility] Inpatient Questions Answer Date Recorded [...] [facility] prior to her appt withcom there on 05/12/23. Message sent to Dr. Mcmahon asking him to put order in if he would like her to have this done. Saranya Ma Sr. Clinical Procedure Manager Regional Sales/Raised Printer documented in this encounter Plan of Treatment Upcoming Encounters Date Type Department Care Team (Late st Contact Info) Description 04/15/2024 10:00 AM EST Hospital Encounter Non-[place] [address] Arrived documented as of this encounter Visit Diagnoses Not on filedocumented in this encounter Care Teams Environmental Services Director Relationship Specialty Start Date End Date Lolly Oliveira MD [address] [place] [address] PCP - General 07/17/13 documented as of this encounter
--- OUTSIDE RECORDS SUMMARY | 2024-02-16 11:37 | XMS_ITS | Encounter Summary ---
Author Organization [facility] [place] [address] Care Team Providers Care Mangle Tender Name Role Phone Lolly Oliveira MD Primary Care Provider [phone] Encounter Details Date Type Department Care Team (Latest Contact Info) Description 07/26/2013 9:45 AM EDT - 07/26/2013 11:59 PM EDT Hospital [place] [address] Mammographic microcalcification Social History Tobacco Use Types [...] AM EST Hospital Encounter Non-[place] [address] Arrived documented as of this encounter Procedures [...] microcalcification documented in this encounter Care Teams Mangle Tender Relationship Specialty Start Date End Date Lolly Oliveira MD [address] [place] [address] PCP - General 07/17/13 documented as of this encounter
--- OUTSIDE RECORDS SUMMARY | 2024-02-16 11:37 | XMS_ITS | Encounter Summary ---
[place] [address] Care Team Providers Care Dirt Contractor Name Role Phone Lolly Oliveira MD Primary Care Provider [phone] Encounter Details Date Type Department Care Team (Latest Contact Info) Description 07/26/2013 9:45 AM EDT - 07/26/2013 11:59 PM EDT Hospital [place] [address] Mammographic microcalcification Social History Tobacco Use Types [...] AM EST Hospital Encounter Non-In[place] [address] Arrived documented as of this encounter Procedures Procedure Name Priority Date/Time Associated Diagnosis Comments SURGICAL PATHOLOGY REPORT Routine 07/26/2013 12:12 PM EDT MAMMO SPECIMEN IMAGING DURING BIOPSY Routine 07/26/2013 11:58 AM EDT Mammographic microcalcification documented in this encounter Results * Surgical Pathology Report (07/26/2013 12:12 PM EDT) Final Diagnosis ? [facility] ? Provider: ?? ELENO CHRISTIAN ?? Pt. Name: ?? JING MOTT ? Acc #: ?[id number] ?Pt. ? Col Date: ?? 07/26/2013 ? [...] Partially fragmented, fibrofatty needle core biopsies. ? [facility] ? Provider: ?? ELENO CHRISTIAN ?? Pt. Name: ?? JING MOTT ? Acc #: ?[id number] ?Pt. ? Col Date: ?? 07/26/2013 ? [...] FCD, adenosis, DCIS 07/28/2013 8:29 AM EDT [facility] BREAST STRUCTURE / Unknown 07/26/2013 12:12 PM EDT 07/26/2013 12:12 PM EDT Eleno Christian MD PATHOLOGY/CYTOLOGY O RDERABLES Performing Organization Address City/State/[facility] Co ak Phone Number [facility] [place] [address] * Mammo Specimen Imaging During Biopsy (07/26/2013 [...] microcalcification documented in this encounter Care Teams Dirt Contractor Relationship Specialty Start Date End Date Lolly Oliveira MD [address] [place] [address] PCP - General 07/17/13 documented as of this encounter
--- OUTSIDE RECORDS SUMMARY | 2024-02-16 11:37 | XMS_ITS | Encounter Summary ---
Author Organization [facility] [place] [address] Care Team Providers Care Mangle Feeder Name Role Phone Lolly Oliveira MD Primary Care Provider [phone] Encounter Details Date Type Department Care Team (Late st Contact Info) Description 06/29/2011 [place] [phone] Eleno Christian MD [facility] DIAGNOSTIC [place] [address] Social History Tobacco Use Types Packs/Day Years [...] AM EST Hospital Encounter Non-Invasive [place] [address] Arrived documented as of this encounter Procedures [...] is a Non-reportable exam Eleno Christian MD [facility] FILM LIBRARY ORD ERABLES documented in this encounter Visit Diagnoses Not on filedocumented in this encounter Care Teams Mangle Feeder Relationship Specialty Start Date End Date Lolly Oliveira MD [address] [place] [address] PCP - General 07/17/13 documented as of this encounter
--- OUTSIDE RECORDS SUMMARY | 2024-02-16 11:37 | XMS_ITS | Encounter Summary ---
[place] [address] Care Team Providers Care General Teller Name Role Phone Lolly Oliveira MD Primary Care Provider [phone] Encounter Details Date Type Department Care Team [...] EST Hospital Encounter Non-Invasive [place] [address] Arrived documented as of this encounter Visit Diagnoses Not on filedocumented in this encounter Care Teams General Teller Relationship Specialty Start Date End Date Lolly Oliveira MD [address] [place] [address] PCP - General 07/17/13 documented as of this encounter
--- OUTSIDE RECORDS SUMMARY | 2024-02-16 11:37 | XMS_ITS | Encounter Summary ---
Author Organization [place] [address] Care Team Providers Care Cardiology Technician Name Role Phone Lolly Oliveira MD Primary Care Provider [phone] Reason for Referral * Diagnostic Test (Routine) - Closed Specialty Diagnoses / Procedures Referred By Contac t Referred To Contact Radiology Diagnoses Left bundle branch block Nonischemic cardiomyopathy Procedures MRI Cardiac Morphology Function With Flow Velocity Quantification wwo Contrast MRI Cardiac Morphology Function wwo Contrast Lalit Mcmahon MD [facility] [place] [address] [place] [address] Referral ID Status Reason Start Date Expiration Date V isits Requested Visits Authorized [id number] Closed Specialty Service Requested 05/06/2022 11/07/2023 2 1 Encounter Details Date Type Department Care Team (Late st Contact Info) Description 05/06/2022 Orders Only Cardiology at [address] [address] Lalit Mcmahon MD [facility] [place] [address] Left bundle branch block; Nonischemic cardiomyopathy Social [...] Hospital Encounter Non-[place] [address] Arrived documented as of this encounter Results [...] have questions please contact the health youth career specialist that requested your imaging first. ? [...] who have questions please contactthe health youth career specialist that requested your imaging first. Lalit Mcmahon MD IMG MRI ORDERABLES documented in this encounter Visit Diagnoses Diagnosis Left bundle branch block Other left bundle branch block Nonischemic cardiomyopathy Other primary cardiomyopathies Left bundle branch block Other left bundle branch block Nonischemic cardiomyopathy Other primary cardiomyopathies documented in this encounter Care Teams Cardiology Technician Relationship Specialty Start Date End Date Lolly Oliveira MD [address] [place] [address] PCP - General 07/17/13 documented as of this encounter
--- OUTSIDE RECORDS SUMMARY | 2024-02-16 11:37 | XMS_ITS | Encounter Summary ---
Author Organization [facility] [place] [address] Care Team Providers Care Butting Saw Operator Name Role Phone Unavailable Primary Care Provider Unavailabl e Encounter Details Date Type Department Care Team (Late st Contact Info) Description 07/14/2013 External Results XRay at [address] [place] [address] Provider, Scanning Social History Tobacco Use Types [...] AM EST Hospital Encounter Non-Invasive Cardiology Lab [facility] [place] [address] Arrived documented as of this encounter Procedures [...]
--- OUTSIDE RECORDS SUMMARY | 2024-02-16 11:37 | XMS_ITS | Encounter Summary ---
Author Organization [facility] [place] [address] Care Team Providers Care Charge Account Identification Clerk Name Role Phone Lolly Oliveira MD Primary Care Provider [phone] Reason for Referral * Diagnostic Test (Routine) - Closed Specialty Diagnoses / Procedures Referred By Contac t Referred To Contact Radiology Diagnoses Left bundle branch block Nonischemic cardiomyopathy Procedures MRI Cardiac Morphology Function With Flow Velocity Quantification [facility] Contrast MRI Cardiac Morphology Function wwo Contrast Lalit Mcmahon MD [facility] [place] [address] [place] [address] Referral ID Status Reason Start Date Expiration Date V isits Requested Visits Authorized [id number] Closed Specialty Service Requested 05/06/2022 11/07/2023 2 1 Reason for Visit * Diagnostic Test (Routine) - Closed Specialty Diagnoses / Procedures Referred By Contac t Referred To Contact Radiology Diagnoses Left bundle branch block Nonischemic cardiomyopathy Procedures MRI Cardiac Morphology Function With Flow Velocity Quantification o Contrast MRI Cardiac Morphology Function wwo Contrast Lalit Mcmahno MD [facility] [place] [address] [place] [address] Referral ID Status Reason Start Date Expiration Date V isits Requested Visits Authorized [id number] Closed Specialty Service Requested 05/06/2022 11/07/2023 2 1 Encounter Details Date Type Department Care Team (Latest Contact Info) Description 07/14/2022 9:08 AM EDT Hospital Encounter MRI at [facility] [place] [phone] Lalit Mcmahon MD [facility] [place] [address] Left bundle branch block; Nonischemic cardiomyopathy Discharge [...] spacer fluticasone propionate (Flonase) 50 mcg/actuation [place], Suspension 1 spray by Each Nare route [...] 71 y.o. : 1950 [address] [facility] [address] Female [phone] (home) No relevant phone numbers on file. Lolly Oliveira MD None Allergies Allergen Reactions ??? Sulfa (Sulfonamide Antibiotics) Date/Time of call: July 07, 2022/11:03 AM/ PREVIOUS MRI SCAN? HEIGHT: WEIGHT: SCHEDULED SCAN: MRI CARDIAC MORPHOLOGY FUNCTION WITH FLOW VELOCITY QUANTIFICATION WWO CONTRAST [[id number]] Order Questions Answers Where will study be performed? [facility] Radiology [120] SUBJECTIVE: Very Claustrophobic CAN [...] ( KV ) You must have a sales route driver helper present when you check in. This patient has been informed that they require a sales route driver helper to drive them home after this procedure. In the absence of a sales route driver helper, IR will not be able to sedate for your scan. Pt verbalized understanding of these instructions during the pre-procedure education via phone. Yes Name of sales route driver helper: Daughter Phone number: PRIOR SCAN DATE/S SEDATION TYPE SUCCESSFUL 07/14/22 MRI Cardiac Morphology Function with Flow Velocity Quantification wwo Contrast Ativan 1mg x 1 dose Pass Revised 08/03/17 documented in this encounter Plan of Treatment Upcoming Encounters Date Type Department Care Team (Late st Contact Info) Description 04/15/2024 10:00 AM [facility] Hospital Encounter [place] [address] Arrived documented as of this encounter Procedures [...] have questions please contact the health healthcare science specialist that requested your imaging first. ? [...] who have questions please contactthe health healthcare science specialist that requested your imaging first. Lalit [...] mg documented in this encounter Care Teams Charge Account Identification Clerk Relationship Specialty Start Date End Date Lolly Oliveira MD [address] [place] [address] PCP - General 07/17/13 documented as of this encounter
--- OUTSIDE RECORDS SUMMARY | 2024-02-16 11:37 | XMS_ITS | Encounter Summary ---
Author Organization [facility] [place] [address] Care Team Providers Care Direct Marketing Intern Name Role Phone Lolly Oliveira MD Primary Care Provider [phone] Encounter Details Date Type Department Care Team (Latest Contact Info) Description 07/20/2013 9:26 AM EDT - 07/20/2013 11:59 PM EDT Hospital [place] [address] CLINIC, Lolly So MD [address] [place], [place] [id number] Mammographic microcalcification Discharge Disposition: Home Social History [...] AM EST Hospital Encounter Non-[place] [address] Arrived documented as of this encounter Procedures [...] does not layer and, therefore, are not front desk representative of milk of calcium. Again, [...] does not layer and, therefore, are not front desk representative of milk of calcium. Again, these have an amorphous andpunctate appearance and remain indeterminate. Stereotactic guided biopsy isrecommended. Alia Fraire MD IMG MAMMO ORDERABLES documented in this encounter Visit Diagnoses Diagnosis Mammographic microcalcification documented in this encounter Care Teams Direct Marketing Intern Relationship Specialty Start Date End Date Lolly Oliveira MD [address] [place] [address] PCP - General 07/17/13 documented as of this encounter
--- OUTSIDE RECORDS SUMMARY | 2024-02-16 11:37 | XMS_ITS | Encounter Summary ---
Author Organization [facility] [place] [address] Care Team Providers Care Pricing Coordinator Name Role Phone Lolly Oliveira MD Primary Care Provider [phone] Reason for Visit * Reason Comments Follow-up Encounter Details Date Type Department Care Team (Late st Contact Info) Description 05/21/2022 8:00 AM EDT Office Visit Dermatology at [address] [phone] Clay Ramírez MD [address] [facility] [place] [address] Psoriasis, guttate Social History Tobacco Use Types [...] Return to clinic in 6 weeks CC: oLlly Oliveira MD documented in this encounter Plan of Treatment Upcoming Encounters Date Type Department Care Team (Late st Contact Info) Description 04/15/2024 10:00 AM [facility] Hospital Encounter Non-Invasive [place] [address] Arrived documented as of this encounter Visit Diagnoses Diagnosis Psoriasis, guttate Other psoriasis documented in this encounter Care Teams Pricing Coordinator Relationship Specialty Start Date End Date Lolly Oliveira MD [address] [place] [address] PCP - General 07/17/13 documented as of this encounter
--- OUTSIDE RECORDS SUMMARY | 2024-02-16 11:37 | XMS_ITS | Encounter Summary ---
Author Organization [facility] [place] [address] Care Team Providers Care Fingernail Sculpturer Name Role Phone Lolly Oliveira MD Primary Care Provider [phone] Reason for Visit * Reason Onset Date Comments Pre Procedure Call 07/01/2022 Encounter Details Date Type Department Care Team (Late st Contact Info) Description 07/01/2022 Telephone Cardiology at [address] [phone] Rosenda Sutton RN Pre Procedure Call Social History Tobacco Use Types Packs/Day Years Used Date Smoking Tobacco: Never Sex and Gender Information Value Date Recorded Sex Assigned at Not on file Gender Identity Not on file Sexual Orientation Not on file documented as of this encounter Miscellaneous Notes * Telephone Encounter - Rosenda Sutton RN - 07/01/2022 9:30 AM EDTSummary: Pre Procedure Call: MAINTENANCE SERVICE DISPATCHER implant EP SPECIAL EDUCATION TUTOR COORDINATION CHECKLIST Patient Name: Luna Mott Patient Performing Horse Buyer: Lalit Mcmahon Referring Provider: Lolly Oliveira Date of Procedure: 07/23/22 Arrival Time/ Case Time: 12:00 pm / 1:00 pm Check In Location: [facility] Desk 4W Date Patient was Called: 07/01/22 Procedure: MAINTENANCE SERVICE DISPATCHER Company: [employer] Type: MAINTENANCE SERVICE DISPATCHER-D Laterality: LEFT Orders: Yes Lab Orders: Yes [...] overnight , understands that they will need solo truck driver on day of discharge Notified pt that Goff catheter may be placed on day of procedure depending on type & duration of case. documented in this encounter Plan of Treatment Upcoming Encounters Date Type Department Care Team (Late st Contact Info) Description 04/15/2024 10:00 AM [facility] Hospital Encounter [place] [address] Arrived documented as of this encounter Visit Diagnoses Not on filedocumented in this encounter Care Teams Fingernail Sculpturer Relationship Specialty Start Date End Date Lolly Oliveira MD [address] [place] [address] PCP - General 07/17/13 documented as of this encounter
--- OUTSIDE RECORDS SUMMARY | 2024-02-16 11:37 | XMS_ITS | Encounter Summary ---
Author Organization [facility] [place] [address] Care Team Providers Care House Wirer Name Role Phone Lolly Oliveira MD Primary Care Provider [phone] Encounter Details Date Type Department Care Team (Latest Contact Info) Description 07/26/2013 9:44 AM EDT - 07/26/2013 11:59 PM EDT Hospital [place] [address] CLINIC, Lolly So MD [address] [place], [place] [phone] Mammographic microcalcification Discharge Disposition: Home Social History [...] AM EST Hospital Encounter Non-Invasive [place] [address] Arrived documented as of this encounter Procedures [...] are present on specimen digital X-ray. A Jaunt-Stereo 13 Cylinder marker clip was placed. Cranio-caudal [...] mLs documented in this encounter Care Teams House Wirer Relationship Specialty Start Date End Date Lolly Oliveira MD [address] [place] [address] PCP - General 07/17/13 documented as of this encounter
--- OUTSIDE RECORDS SUMMARY | 2024-02-16 11:37 | XMS_ITS | Encounter Summary ---
Author Organization [facility] [place] [address] Care Team Providers Care Sheet Rock Hanger Name Role Phone Lolly Oliveira MD Primary Care Provider [phone] Encounter Details Date Type Department Care Team (Late st Contact Info) Description 07/26/2013 [place] [address] Eleno Christian MD [facility] [place] [address] Social History Tobacco Use Types Packs/Day Years [...] AM EST Hospital Encounter Non-Invasive [place] [address] Arrived documented as of this encounter Visit Diagnoses Not on filedocumented in this encounter Care Teams Sheet Rock Hanger Relationship Specialty Start Date End Date Lolly Oliveira MD [address] [place] [address] PCP - General 07/17/13 documented as of this encounter
--- OUTSIDE RECORDS SUMMARY | 2024-02-16 11:37 | XMS_ITS | Encounter Summary ---
[place] [address] Care Team Providers Care Drug Safety Scientist Name Role Phone Lolly Oliveira MD Primary Care Provider [phone] Encounter Details Date Type Department Care Team [...] AM EST Hospital Encounter Non-[place] [address] Arrived documented as of this encounter Visit Diagnoses Not on filedocumented in this encounter Care Teams Drug Safety Scientist Relationship Specialty Start Date End Date Lolly Oliveira MD [address] [place] [address] PCP - General 07/17/13 documented as of this encounter
--- OUTSIDE RECORDS SUMMARY | 2024-02-16 11:37 | XMS_ITS | Encounter Summary ---
[place] [address] Care Team Providers Care Reception Centre Manager Name Role Phone Lolly Oliveira MD Primary Care Provider [phone] Encounter Details Date Type Department Care Team (Late st Contact Info) Description 07/17/2013 [place] [phone] Lolly Oliveira MD [address] [place], [place] [id number] Social History Tobacco Use Types Packs/Day Years [...] AM EST Hospital Encounter Non-Invasive [place] [address] Arrived documented as of this encounter Procedures [...] ON 07/06/13 AND 07/14/13) FROM [facility] DATED 07/17/13: ?? DIAGNOSTIC IMAGING [...] OUTSIDE MAMMOGRAMS (PERFORMED ON 07/06/13 AND 07/14/13) [facility] DATED 07/17/13: DIAGNOSTIC IMAGING [...] on filedocumented in this encounter Care Teams Reception Centre Manager Relationship Specialty Start Date End Date Lolly Oliveira MD [address] [place] [address] PCP - General 07/17/13 documented as of this encounter
--- OUTSIDE RECORDS SUMMARY | 2024-02-16 11:37 | XMS_ITS | Encounter Summary ---
[place] [address] Care Team Providers Care Health Clinician Name Role Phone Lolly Oliveira MD Primary Care Provider [phone] Encounter Details Date Type Department Care Team (Late st Contact Info) Description 04/09/2022 Refill Dermatology at [address] [address] Nora Meredith, ACID SUPERVISOR Social History Tobacco Use Types Packs/Day Years [...] [facility] Hospital Encounter Non-Invasive [place] [address] Arrived documented as of this encounter Visit Diagnoses Not on filedocumented in this encounter Care Teams Health Clinician Relationship Specialty Start Date End Date Lolly Oliveira MD [address] [place] [address] PCP - General 07/17/13 documented as of this encounter
--- OUTSIDE RECORDS SUMMARY | 2024-02-16 11:37 | XMS_ITS | Encounter Summary ---
Author Organization [place] [address] Care Team Providers Care Television Script Writer Name Role Phone Lolly Oliveira MD Primary Care Provider [phone] Reason for Visit * Reason Comments Follow-up Encounter Details Date Type Department Care Team (Late st Contact Info) Description 07/02/2022 8:00 AM EDT Office Visit Dermatology at [address] [phone] Clay Ramírez MD [address] [facility] [place] [address] Psoriasis, guttate Social History Tobacco Use Types [...] [facility] Hospital Encounter Non-[place] [address] Arrived documented as of this encounter Visit Diagnoses Diagnosis Psoriasis, guttate Other psoriasis documented in this encounter Care Teams Television Script Writer Relationship Specialty Start Date End Date Lolly Oliveira MD [address] [place] [address] PCP - General 07/17/13 documented as of this encounter
--- OUTSIDE RECORDS SUMMARY | 2024-02-16 11:37 | XMS_ITS | Encounter Summary ---
Author Organization [facility] [place] [address] Care Team Providers Care Curtain Stitcher Name Role Phone Lolly Oliveira MD Primary Care Provider [phone] Encounter Details Date Type Department Care Team (Late Contact Info) Description 01/14/2022 Telephone Dermatology at [address] [address] Nora Meredith LPN Social [...] return to phototherapy. New order sent to [facility]. Reviewed with patient Dr. Mar recommendation. She agrees with plan of care. Advised patient order will be sent to [facility]. She voiced understanding. documented in this encounter Plan of Treatment Upcoming Encounters Date Type Department Care Team (Late Contact Info) Description 04/15/2024 10:00 AM EST Hospital Encounter Non-[place] [address] Arrived documented as of this encounter Visit Diagnoses Not on filedocumented in this encounter Care Teams Curtain Stitcher Relationship Specialty Start Date End Date Lolly Oliveira MD [address] [place] [address] PCP - General 07/17/13 documented as of this encounter
--- OUTSIDE RECORDS SUMMARY | 2024-02-16 11:37 | XMS_ITS | Encounter Summary ---
Author Organization [facility] [place] [address] Care Team Providers Care Staff Occupational Therapist Name Role Phone Unavailable Primary Care Provider Unavailabl e Encounter Details Date Type Department Care Team (Late st Contact Info) Description 07/04/2012 Orders [place] [address] Eleno Christian MD [facility] DIAGNOSTIC [place] [address] Social History Tobacco Use Types Packs/Day Years [...] AM EST Hospital Encounter Non-[place] [address] Arrived documented as of this encounter Procedures [...] is a Non-reportable exam Eleno Christian MD [facility] FILM LIBRARY ORD ERABLES documented in this encounter Visit Diagnoses Not on filedocumented in this encounter
--- OUTSIDE RECORDS SUMMARY | 2024-02-16 11:37 | XMS_ITS | Encounter Summary ---
Author Organization [facility] [place] [address] Care Team Providers Care Skin Washer Name Role Phone Lolly Oliveira MD Primary Care Provider [phone] Reason for Visit * Reason Comments Skin Check Encounter Details Date Type Department Care Team (Late st Contact Info) Description 11/23/2014 10:00 AM EDT Office Visit Dermatology at [address] [address] Clay Ramírez MD [address] [facility] [place] [address] Dermatofibroma; Nevus; Solar lentigo Discharge Disposition: Home [...] [facility] Hospital Encounter Non[place] [address] Arrived documented as of this encounter Visit Diagnoses Diagnosis Dermatofibroma Benign neoplasm of skin, site unspecified Nevus Benign neoplasm of skin, site unspecified Solar lentigo Other dyschromia documented in this encounter Care Teams Skin Washer Relationship Specialty Start Date End Date Lolly Oliveira MD [address] [place] [address] PCP - General 07/17/13 documented as of this encounter
--- OUTSIDE RECORDS SUMMARY | 2024-02-16 11:37 | XMS_ITS | Encounter Summary ---
[place] [address] Care Team Providers Care Manager Target Name Role Phone Lolly Oliveira MD Primary [...] Hospital Encounter Non-In[place] [address] Arrived documented as of this encounter Visit Diagnoses Not on filedocumented in this encounter Care Teams Manager Target Relationship Specialty Start Date End Date Lolly Oliveira MD [address] [place] [address] PCP - General 07/17/13 documented as of this encounter
--- OUTSIDE RECORDS SUMMARY | 2024-02-16 11:37 | XMS_ITS | Encounter Summary ---
Author Organization [facility] Address [facility] [place] [address] Care Team Providers Care Social Services Manager Name Role Phone Lolly Oliveira MD Primary Care Provider [phone] Encounter Details Date Type Department Care Team (Late st Contact Info) Description 07/16/2022 Telephone Cardiology at [address] [phone] Lalit Mcmahon MD [facility] [address] [place] [address] Social History Tobacco Use Types Packs/Day Years [...] her nonischemic cardiomyopathy. She is scheduled for CARDIOGRAPHER-D implantation next week and looks forward to the procedure. We will see each other next week. Lalit Mcmahon MD [facility] Cardiac Electrophysiology 07/16/2022 8:52 AM documented in this encounter Plan of Treatment Upcoming Encounters Date Type Department Care Team (Late st Contact Info) Description 04/15/2024 10:00 AM EST Hospital Encounter Non-[place] [address] Arrived documented as of this encounter Visit Diagnoses Not on filedocumented in this encounter Care Teams Social Services Manager Relationship Specialty Start Date End Date Lolly Oliveira MD [address] [place] [address] PCP - General 07/17/13 documented as of this encounter
--- OUTSIDE RECORDS SUMMARY | 2024-02-16 11:37 | XMS_ITS | Encounter Summary ---
Author Organization [place] [address] Care Team Providers Care Dye Worker Name Role Phone Lolly Oliveira MD Primary Care Provider [phone] Reason for Visit * Auth/Cert (Routine) Specialty Diagnoses / Procedures Referred By Contac t Referred To Contact Diagnoses Left bundle-branch block, unspecified Other cardiomyopathies Left bundle branch block [I44.7]Nonischemic cardiomyopathy [I42.8] Procedures PRG CATH PLMT LEFT HEART CATH & ARTS W/INJ & ANGIO IMG S&I ELECTROPHYSIOLOGY PROCEDURE Lalit Mcmahon MD [facility] [place] [address] [facility] Referral ID Status Reason Start Date Expiration Date Visits Re quested Visits Authorized [id number] 1 1 Encounter Details Date Type Department Care Team (Late st Contact Info) Description 07/23/2022 1:00 PM EDT - 07/23/2022 5:30 PM EDT Surgery [place] [address] Lalit Mcmahon MD [facility] [place] [address] ELECTROPHYSIOLOGY PROCEDURE Social History Tobacco Use Types [...] Luna Mott Patient Age: 71 y.o. Language: Welsh Race: White Ethnicity: Not nor Admit date: 07/23/2022 Discharge date and time: 07/24/22 Attending Physician: Lalit Mcmahon MD Discharge Physician: Lalit Mcmahon MD Follow-up Recommendations for Providers: - s/p WRAP TURNER-D implant - post implant QRS 130 ms [...] ??? Solar lentigo Operations/Major Procedures: 07/23/22: [facility] WRAP TURNER-D implant History of Presentation: 71 y.o. female with a history of HFrEF, LBBB, QRS >150, NYHA II who is POD#1 of WRAP TURNER-D implant ([employer]). Hospital Course: Elective admission for WRAP TURNER-D implant Admitted post-implant for pain management, telemetry [...] (heart failure with reduced ejection fraction) [I50.20] WRAP TURNER-D implant Admission Condition: good Indication for Admission: [...] g Refills: 3 fluticasone propionate 50 mcg/actuation [place], Suspension Commonly known as: Flonase 1 spray [...] F. The office scheduling phone number is [phone]. ARM MOVEMENT RESTRICTIONS POST-IMPLANT - Do not [...] please call the Cardiac ElectrophysiologyTriage Nurse at [phone], option 3. General Instructions None Discharge References/Attachments [...] F. The office scheduling phone number is [phone]. ARM MOVEMENT RESTRICTIONS POST-IMPLANT - Do not [...] please call the Cardiac ElectrophysiologyTriage Nurse at [phone], option 3. documented in this encounter Medications [...] with spacer fluticasone propionate (Flonase) 50 mcg/actuation [place], Suspension [...] Cardiac Electrophysiology Post-Implant Device Interrogation Luna Mott [id number] 07/24/2022 History: Luna Mott is a 71 y.o. female with a history of HFrEF, LBBB, QRS >150, NYHA II who is POD#1 of WRAP TURNER-D implant ([employer]). Overall feels well this morning. Ready [...] WOB Neuro- A&Ox3 Device Interrogation: Data ?? Water Main Inspector Model # Serial # Generator [employer] [id number] Atrial Lead [employer] [id number] RV Lead [employer] 0672 [id number] LV Lead [employer] [id number] ?? Diagnostics Pacing Mode: DDD 60-130 Underlying Rhythm: [place] Atrial Episodes: None Ventricular Episodes: None FINAL PROGRAMMING: Pacing: Mode Lower rate (ppm) Upper rate (ppm) ?? DDD 60 130 VF: Rate (bpm) #Antitachycardia pacing First shock energy (J) ?? 200 Quick convert 41 VT: 170 Monitor only Monitor only ? Battery and Leads Impedances (ohms) Sensing (mV) Thresholds HV RA RV LV RA RV LV RA RV LV 73 [phone] (LVa) 7.7 13.1 >25 0.4V @ 0.4 ms 0.4V @ 0.4 ms 0.5 V @ 1.0 ms POD#1 CXR: All leads in nominal positioning Impression: 71 y.o. female who is s/p WRAP TURNER-D implant for LBBB, NYHA II, HFrEF. - [...] [facility]) Fadi Nunez MD 07/24/2022 Pager: [phone] I met with the patient today and [...] agreement. ? Dr. Lalit Mcmahon, electrophysiology attending ([id number]) * Zaria Wright RN - 07/23/2022 8:28 [...] HF, QRS > 150 ms presents for WRAP TURNER-D placement. ROS: Denies recent fevers or chills [...] 0.9) flush 5 mL 5 mL Intravenous [id number] ramos MD ??? sodium chloride 0.9 % [...] HF, QRS > 150 ms presents for WRAP TURNER-D placement. Backup would be LBBAP lead. Antibiotics: cefazolin Rationales for, intended benefits and potential risk of planned procedures reviewed. The patient indicated understanding and agreement with the plan. Informed consent signed. Procedure checklist completed. Fadi Nunez MD Cardiac Electrophysiology Fellow [facility] Pager [phone] 07/23/2022 I met with the patient today [...] agreement. ? Dr. Lalit Mcmahon, electrophysiology attending ([id number]) documented in this encounter Miscellaneous Notes * Brief Op Note - Lalit Mcmahon MD - 07/23/2022 4:04 PM EDT Brief Operative Note Patient Name: Luna Mott : [id number] MR#: [id number] Case Date: 07/23/2022 Surgeon: Surgeon(s) and Role: [...] AM EST Hospital Encounter [place] [address] Arrived Scheduled Orders Name Type Priority Associated Diagnoses Orde r Schedule EKG 12 Lead ECG Routine Cardiac resynchronization therapy defibrillator (WRAP TURNER-D) in place One Time for 1 Occurrences [...] (Bezet) 522 ms MUSE SYSTEM Calculated R Lane 78 degrees MUSE SYSTEM Calculated T Lane -71 degrees MUSE SYSTEM INTERPRETATION AV dual-paced [...] have questions please contact the health animal caretaker that requested your imaging first. ? [...] who have questions please contactthe health animal caretaker that requested your imaging first. Lalit Mcmahon MD IMG DX ORDERABLES * ELECTROPHYSIOLOGY PROCEDURE (07/23/2022 1:11 PM EDT) Anatomical Region Laterality Modality Other Narrative 07/23/2022 4:24 PM EDT Table formatting from the original result was not included. BIVENTRICULAR ICD IMPLANTATION Chief Clinical Dietitian: Lalit Mcmahon MD Fellow: Fadi Nunez MD [...] lateral branch of the CS in the KYRGYZ view. This branch was cannulated with a [...] the entire procedure. LEAD AND GENERATOR DATA: Water Main Inspector Model # Serial # Generator [employer] [id number] Atrial Lead [employer] [id number] RV Lead [employer] 0672 [id number] LV Lead [employer] [id number] PACE/SENSE DATA: Sensed wave (mV) Threshold (V) [...] (cGycm2) 300 CONCLUSIONS: Successful implantation of a [employer] biventricular ICD for primary prevention and treatment of symptoms related to congestive heart failure. Follow up in EP clinic in 1-2 months. Procedures performed: new ICD system ( cpt 71854-O5); implant LV lead at time of ICD insertion (cpt 76604) I have read, edited and approve of this report: Lalit Mcmahon MD [facility] Cardiac Electrophysiology 07/23/2022 4:22 PM Procedure Note Lalit Mcmahon MD - 07/23/2022 BIVENTRICULAR ICD IMPLANTATION Chief Clinical Dietitian: Lalit Mcmahon MD Fellow: Fadi Nunez MD [...] appropriate lateralbranch of the CS in the KYRGYZ view. This branch was cannulated with a [...] in the entireprocedure. LEAD AND GENERATOR DATA: Water Main Inspector Model # Serial # Generator [employer] [id number] Atrial Lead [employer] [id number] [id number] RV Lead [employer] 0672 932472 LV Lead [employer] [id number] [id number] PACE/SENSE DATA: Sensed wave (mV) Threshold (V) [...] (cGycm2) 300 CONCLUSIONS: Successful implantation of a [employer] biventricular ICD forprimary prevention and treatment of symptoms related to congestive heartfailure. Follow up in EP clinic in 1-2 months. Procedures performed: new ICD system ( cpt 58430-K4); implant LV lead attime of ICD insertion (cpt 19743) I have read, edited and approve of this report: Lalit Mcmahon MD S Cardiac Electrophysiology 07/23/2022 4:22 PM Lalit Mcmahon MD EP PROCEDURE ORDERAB LES * POCT Glucose (07/23/2022 12:54 PM EDT) [facility] Signature Glucose, POC 83 65 - 199 mg/dL [facility] Comment: Supplemental ranges: <140 mg/dL before meals <180 mg/dL all other times of the day Blood 07/23/2022 12:5 4 PM EDT 07/23/2022 12:54 PM EDT Lalit Mcmahon MD POINT OF CARE TEST O RDERABLES Performing Organization Address City/[facility]/ZIP Co de Phone Number [facility] [place] [address] * EKG 12 Lead (07/23/2022 12:33 PM EDT) Ventricular rate 72 BPM MUSE SYSTEM Atrial Rate 72 BPM MUSE SYSTEM P-R Interval 158 ms MUSE SYSTEM QRS Duration 176 ms MUSE SYSTEM Q-T Interval 458 ms MUSE SYSTEM QTC Calculated (Bezet) 501 ms MUSE SYSTEM Calculated P Lane 34 degrees MUSE SYSTEM Calculated R Lane 12 degrees MUSE SYSTEM Calculated T Lane -173 degrees MUSE SYSTEM INTERPRETATION Normal sinus rhythm Left bundle branch block Abnormal ECG No previous ECGs available Confirmed by MD Salome, Lalit ([id number]) on 07/23/2022 1:19:03 PM MUSE SYSTEM 07/23/2022 12:3 3 PM EDT 07/23/2022 1:19 PM EDT Lalit Mcmahon MD ECG ORDERABLES Performing Organization Address [facility]/ZIP Co de Phone Number MUSE SYSTEM * Differential, Automated (07/23/2022 11:55 AM EDT) Neutrophil % 62.6 % [facility] Neutrophil Absolute 4.14 1.70 - 6.10 x10(3)/[facility] LABORAT[facility] Lymph % 27.0 % [facility] [place] [facility] Lymphocytes Abs 1.8 0.9 - 3.2 x10(3)/[facility] LABORAT[facility] Monocyte % 7.3 % [facility] Monocyte Abs 0.5 0.3 - 0.9 x10(3)/[facility] LABORATORY Eos % 2.3 % [facility] [place] [facility] Eosinophils Abs 0.2 0.0 - 0.4 x10(3)/[facility] LABORAT[facility] Basophil % 0.6 % [facility] ITAL LAB[facility] Baso Absolute 0.0 0.0 - 0.1 x10(3)/[facility] LABORATORY Immature Gran % 0.20 % [facility] Comment: Immature granulocytes(IG's)percentage and absolute count will include metamyelocytes, myelocytes, and promyelocytes. Blood smears from CBCs yielding IG's will be scanned manually for concordance. If this scan disagrees with the automated IG or if promyelocytes are noted, a manual differential will be performed. Immature Gran Absolute 0.01 0.00 - 0.04 x10(3)/[facility] LABORATORY Blood 07/23/2022 11:5 5 AM EDT 07/23/2022 12:07 PM EDT Narrative Resulting Agency Comment Spec In Lab Lalit Mcmahon MD HEMATOLOGY ORDERABLE S [facility] [place] [address] * Hemogram (07/23/2022 11:55 AM EDT) White Blood Cell 6.6 4.0 - 9.5 x10(3)/[facility] LABORATORY Red Blood Cell 4.50 4.00 - 5.21 x10(6)/[facility] LAB[facility]ORY Hemoglobin 13.7 11.7 - 15.5 g/dL [facility] Hematocrit 42.5 35.7 - 45.8 % [facility] Mean Cell Volume 94.4 82.6 - 94.4 fL [facility] Mean Cell Hemoglobin 30.4 27.1 - 32.0 pg [facility] Mean Cell Hemoglobin Concentration 32.2 31.7 - 35.0 g/dL [facility] Platelet 193 145 - 357 x10(3)/[facility] LABORATORY RDW Standard Deviation 45.5 37.0 - 46.0 fL [facility] RDW coefficient of variation 13.2 11.5 - 14.1 % [facility] Mean Platelet Volume 9.5 7.6 - 12.9 fL [facility] NRBC% auto 0.0 % [facility] ITAL LAB[facility]AT[facility] NRBC Absolute 0.000 0.000 - 0.000 x10(3)/[facility] LAB[facility]AT[facility] Blood 07/23/2022 11:5 5 AM EDT 07/23/2022 12:07 PM EDT Narrative Resulting Agency Comment Spec In Lab Lalit Mcmahon MD HEMATOLOGY ORDERABLE S [facility] [place] [address] * (ABNORMAL) BMP w/fasting Glucose (07/23/2022 11:55 AM EDT) Glucose Fasting 110(H) 65 - 99 mg/dL [facility] Comment: ?Fasting* Glucose Interpretive [...] of Diabetes Mellitus, Position Statement from the [place] [employer]. ??Diabetes Care, Volume 33, Supplement 1, Mar 2009 Blood Urea Nitrogen 23(H) 8 - 18 mg/dL [facility] Creatinine 1.07 0.70 - 1.20 mg/dL [facility] Sodium 141 135 - 145 mmol/L [facility] Potassium 4.8 3.5 - 5.0 mmol/L [facility] Comment: Please note: ??Patients [...] Gap 9 5 - 15 mmol/L [facility] Calcium 9.7 8.5 - 10.5 mg/dL [facility] Est Glomerular Filtration Rate [...] Mcmahon MD CHEMISTRY ORDERABLES Performing Organization Address [facility]/[place] Co de Phone Number [facility] [place] [address] * Prothrombin Time (07/23/2022 11:55 AM EDT) Prothrombin Time 11.7 9.4 - 12.5 sec [facility] International Normalization Ratio 1.0 [facility] Comment: An INR <2.0 [...] HEMATOLOGY ORDERABLE S Performing Organization Address City/[facility]/[place] Co de Phone Number [facility] [place] [address] documented in this encounter Visit Diagnoses Diagnosis HFrEF (heart failure with reduced ejection fraction)- Primary Left bundle branch block Other left bundle branch block Nonischemic cardiomyopathy Other primary cardiomyopathies Cardiac resynchronization therapy defibrillator (WRAP TURNER-D) in place Left bundle branch block Other [...] Routine documented in this encounter Care Teams Dye Worker Relationship Specialty Start Date End Date Lolly Oliveira MD [address] [place] [address] PCP - General 07/17/13 documented as of this encounter
--- OUTSIDE RECORDS SUMMARY | 2024-02-16 11:37 | XMS_ITS | Encounter Summary ---
Author Organization Formerly [facility] [place] [address] Care Team Providers Care Cook Ice Cream Name Role Phone Lolly Oliveira MD Primary Care Provider [phone] Reason for Visit * Diagnostic Test (Routine) - Closed Specialty Diagnoses / Procedures Referred By Contac t Referred To Contact Radiology Diagnoses Left bundle branch block Nonischemic cardiomyopathy Procedures MRI Cardiac Morphology Function With Flow Velocity Quantification wwo Contrast MRI Cardiac Morphology Function wwo Contrast Lalit Mcmahon MD [facility] [place] [address] [facility] [place] [address] Referral ID Status Reason Start Date Expiration Date V isits Requested Visits Authorized [id number] Closed Specialty Service Requested 05/06/2022 11/07/2023 2 1 Encounter Details Date Type Department Care Team (Latest Contact Info) Description 07/14/2022 9:09 AM EDT - 07/14/2022 11:59 PM EDT [place] [address] Lalit Mcmahon MD [facility] [place] [address] Discharge Disposition: Home Social History Tobacco Use [...] with spacer fluticasone propionate (Flonase) 50 mcg/actuation [place], Suspension 1 spray by Each Nare route [...] AM EST Hospital Encounter [place] [address] Arrived documented as of this [...] mLs documented in this encounter Care Teams Cook Ice Cream Relationship Specialty Start Date End Date Lolly Oliveira MD [address] [place] [address] PCP - General 07/17/13 documented as of this encounter
--- OUTSIDE RECORDS SUMMARY | 2024-02-16 11:37 | XMS_ITS | Encounter Summary ---
Author Organization Formerly [facility] [place] [address] Care Team Providers Care Correctional Treatment Specialist Name Role Phone Lolly Oliveira MD Primary Care Provider [phone] Encounter Details Date Type Department Care Team (Latest Contact Info) Description 07/17/2013 8:40 AM EDT - 07/17/2013 11:59 PM EDT Hospital Encounter XRay at [address] [place] [phone] [address], [facility] Discharge Disposition: Home Social [...] Hospital Encounter Non-[place] [address] Arrived documented as of this encounter Visit Diagnoses Not on filedocumented in this encounter Care Teams Correctional Treatment Specialist Relationship Specialty Start Date End Date Lolly Oliveira MD [address] [place] [address] PCP - General 07/17/13 documented as of this encounter
--- OUTSIDE RECORDS SUMMARY | 2024-02-16 11:37 | XMS_ITS | Encounter Summary ---
Author Organization [facility] Address [facility] [place] [address] Care Team Providers Care Visual Education Director Name Role Phone Lolly Oliveira MD Primary Care Provider [phone] Reason for Visit * Auth/Cert (Routine) Specialty Diagnoses / Procedures Referred By Contac t Referred To Contact Diagnoses Left bundle-branch block, unspecified Other cardiomyopathies Left bundle branch block [I44.7]Nonischemic cardiomyopathy [I42.8] Procedures PRG CATH PLMT LEFT HEART CATH & ARTS W/INJ & ANGIO IMG S&I ELECTROPHYSIOLOGY PROCEDURE Lalit Mcmahon MD [facility] [address] [facility] Referral ID Status Reason Start Date Expiration Date Visits Re quested Visits Authorized [id number] 1 1 Encounter Details Date Type Department Care Team (Late st Contact Info) Description 07/23/2022 1:08 PM EDT Anesthesia Event [place] [address] Monae Gonzalez MD [facility] [place] [address] Maria Elena Snyder CRNA [facility] [place] [address] Anesthesia Record Procedure Summary Procedure Name Responsible [...] 1307; median cubital vein (antecubital fossa), right; dcih-ymv-tngnbn catheter system; Anatomical Landmarks; 20 gauge; 07/24/22; [...] 1343; metacarpal vein (top of hand), left; hnmv-ndg-rvkemm catheter system; Anatomical Landmarks; US Not Used; [...] Procedure Summary Date: 07/23/22 Room / Location: [facility] A-LAB ROOM 3 / [facility] EP LABS Anesthesia Start: 1308 Anesthesia Stop: 1633 Procedure: ELECTROPHYSIOLOGY PROCEDURE (Left) Diagnosis: Left bundle branch block Nonischemic cardiomyopathy (Left bundle branch block [I44.7]Nonischemic cardiomyopathy [I42.8]) Providers: Lalit Mcmahon MD Responsible Provider: Monae Gonzalez MD Anesthesia Type: general ASA Status: 4 All Anesthesia Providers: Anesthesiologist: Monae Gonzalez MD; Dominique Sen MD TRIMMER AND REINFORCER: Maria Elena Snyder CRNA Vitals Value Taken Time BP 131/46 07/23/22 1700 Temp 36.7 ??C (98.1 ??F) 07/23/22 1627 Pulse 67 07/23/22 1703 Resp 14 07/23/22 1703 SpO2 98 % 07/23/22 1703 Pain Level Vitals shown include unvalidated device data. Patient Location: PACU/[facility] Level of Consciousness: Conscious but Sleepy Pain [...] and Nonischemic CM (EF 15-20%)who presents for POLICE SURGEON-D. No prior anesthetic records. Pt states that [...] daughter/son and patient who. Plan discussed with TRIMMER AND REINFORCER. Anesthesia Screening documented in this encounter Plan of Treatment Upcoming Encounters Date Type Department Care Team (Late st Contact Info) Description 04/15/2024 10:00 AM [facility] Hospital Encounter Non[place] [address] Arrived documented as of this [...] documented in this encounter Care Teams Visual Education Director Relationship Specialty Start Date End Date Lolly Oliveira MD [address] [place] [address] PCP - General 07/17/13 documented as of this encounter
--- OUTSIDE RECORDS SUMMARY | 2024-02-16 11:37 | XMS_ITS | Encounter Summary ---
Author Organization [place] [address] Care Team Providers Care Traffic Sign Supervisor Name Role Phone Lolly Oliveira MD Primary Care Provider [phone] Reason for Visit * Reason Comments Follow-up Encounter Details Date Type Department Care Team (Late st Contact Info) Description 06/06/2021 8:45 AM EDT Office Visit Dermatology at [address] [address] Clay Ramírez MD [address] [facility] [place] [address] Psoriasis, guttate Social History Tobacco Use Types [...] AM EST Hospital Encounter Non-[place] [address] Arrived documented as of this encounter Visit Diagnoses Diagnosis Psoriasis, guttate Other psoriasis documented in this encounter Care Teams Traffic Sign Supervisor Relationship Specialty Start Date End Date Lolly Oliveira MD [address] [place] [address] PCP - General 07/17/13 documented as of this encounter
--- OUTSIDE RECORDS SUMMARY | 2024-02-16 11:37 | XMS_ITS | Encounter Summary ---
[place] [address] Care Team Providers Care Founder Chairman And Chief Creative Officer Name Role Phone Lolly Oliveira MD Primary Care Provider [phone] Encounter Details Date Type Department Care Team [...] AM EST Hospital Encounter Non-[place] [address] Arrived documented as of this encounter Visit Diagnoses Not on filedocumented in this encounter Care Teams Founder Chairman And Chief Creative Officer Relationship Specialty Start Date End Date Lolly Oliveira MD [address] [place] [address] PCP - General 07/17/13 documented as of this encounter
--- OUTSIDE RECORDS SUMMARY | 2024-02-16 11:37 | XMS_ITS | Encounter Summary ---
Author Organization Formerly [facility] [place] [address] Care Team Providers Care Program Manager Transportation Name Role Phone Lolly Oliveira MD Primary Care Provider [phone] Encounter Details Date Type Department Care Team (Late st Contact Info) Description 04/01/2021 3:30 PM EST Office Visit Dermatology at [address] [phone] Clay Ramírez MD [address], [place] [address] Psoriasis, guttate Social History Tobacco Use Types [...] AM EST Hospital Encounter Non-[place] [address] Arrived documented as of this encounter Visit Diagnoses Diagnosis Psoriasis, guttate Other psoriasis documented in this encounter Care Teams Program Manager Transportation Relationship Specialty Start Date End Date Lolly Oliveira MD [address] [place] [address] PCP - General 07/17/13 documented as of this encounter
--- OUTSIDE RECORDS SUMMARY | 2024-02-16 11:37 | XMS_ITS | Encounter Summary ---
Author Organization Count Includes [facility] [address] Care Team Providers Care Seamstress Fitter Name Role Phone Lolly Oliveira MD Primary Care Provider [phone] Encounter Details Date Type Department Care Team (Late st Contact Info) Description 10/09/2021 Telephone Dermatology at [address] [address] Nora Meredith LPN Social [...] [facility] Non-Invasive [place] [address] Arrived documented as of this encounter Visit Diagnoses Not on filedocumented in this encounter Care Teams Seamstress Fitter Relationship Specialty Start Date End Date Lolly Oliveira MD [address] [place] [address] PCP - General 07/17/13 documented as of this encounter
--- OUTSIDE RECORDS SUMMARY | 2024-02-16 11:37 | XMS_ITS | Encounter Summary ---
Author Organization [facility] [place] [address] Care Team Providers Care Data Center Manager Name Role Phone Lolly Oliveira MD Primary Care Provider [phone] Reason for Referral * Consultation (Routine) - Closed Specialty Diagnoses / Procedures Referred By Contact Referred To Contact Electrophysiology / Cardiology Diagnoses Left bundle branch block Cardiomyopathy, unspecified type AT MINIMUM PT NEEDS CONSIDERATION FOR DEFIBRILLATOR, ALSO CANDIDATE FOR RESYNCHRONIZATION THERAPY HER QRS IS >0.16 Lolly Oliveira MD [address] [place] [address] [facility] Cardiology [address] [place] [phone] Referral ID Status Reason Start Date Expiration Date V isits Requested Visits Authorized [id number] Closed Consult, Test & Treat PCP Updated and/or Approved 04/30/2022 04/30/2023 6 6 Encounter Details Date Type Department Care Team (Latest Contact Info) Description 04/30/2022 Transcribe Orders eDH Incoming Referrals [phone] Lolly Oliveira MD [address] [place], [place] [id number] Left bundle branch block; Cardiomyopathy, unspecified type [...] AM EST Hospital Encounter [place] [address] Arrived Scheduled Referrals Name Type Priority Associated Diagnoses Orde r Schedule Referral to Cardiology Outpatient Referral Routine Left bundle branch block Cardiomyopathy, Unspecified Type Ordered: 04/30/2022 documented as of this encounter Visit Diagnoses Diagnosis Left bundle branch block Other left bundle branch block Cardiomyopathy, unspecified type documented in this encounter Care Teams Data Center Manager Relationship Specialty Start Date End Date Lolly Oliveira MD [address] [place] [address] PCP - General 07/17/13 documented as of this encounter
--- OUTSIDE RECORDS SUMMARY | 2024-02-16 11:37 | XMS_ITS | Encounter Summary ---
Author Organization [facility] [place] [address] Care Team Providers Care Vp Outcomes Name Role Phone Lolly Oliveira MD Primary Care Provider [phone] Encounter Details Date Type Department Care Team (Latest Contact Info) Description 07/18/2013 Orders [place] [id number] Alia Fraire MD [facility] [place] [address] Mammographic microcalcification (Primary Dx) Social History Tobacco [...] AM EST Hospital Encounter [place] [address] Arrived documented as of this encounter Results [...] are present on specimen digital X-ray. A Infratelrk Eviva-Stereo 13 Cylinder marker clip was placed. [...] calcifications are present on specimendigital X-ray. A Infratelrk Eviva-Stereo 13 Cylinder marker clip was placed. [...] does not layer and, therefore, are not specialty sales representative of milk of calcium. Again, [...] does not layer and, therefore, are not specialty sales representative of milk of calcium. Again, these have an amorphous andpunctate appearance and remain indeterminate. Stereotactic guided biopsy isrecommended. Alia Fraire MD IMG MAMMO ORDERABLES documented in this encounter Visit Diagnoses Diagnosis Mammographic microcalcification- Primary Mammographic microcalcification Mammographic microcalcification Mammographic microcalcification Mammographic microcalcification documented in this encounter Care Teams Vp Outcomes Relationship Specialty Start Date End Date Lolly Oliveira MD [address] [place] [address] PCP - General 07/17/13 documented as of this encounter
--- OUTSIDE RECORDS SUMMARY | 2024-02-16 11:37 | XMS_ITS | Encounter Summary ---
Author Organization [facility] Address [facility] [place] [address] Care Team Providers Care Treater Helper Name Role Phone Lolly Oliveira MD Primary Care Provider [phone] Reason for Visit * Auth/Cert (Routine) Specialty Diagnoses / Procedures Referred By Contac t Referred To Contact Diagnoses Left bundle-branch block, unspecified Other cardiomyopathies Left bundle branch block [I44.7]Nonischemic cardiomyopathy [I42.8] Procedures PRG CATH PLMT LEFT HEART CATH & ARTS W/INJ & ANGIO IMG S&I ELECTROPHYSIOLOGY PROCEDURE Lalit Mcmahon MD [facility] [place] [address] [facility] Referral ID Status Reason Start Date Expiration Date Visits Re quested Visits Authorized [id number] 1 1 Encounter Details Date Type Department Care Team (Latest Contact Info) Description 07/23/2022 11:39 AM EDT - 07/24/2022 10:23 AM EDT Hospital [place] [phone] Lalit Mcmahon MD [facility] [place] [address] Left bundle branch block; Nonischemic cardiomyopathy; Cardiac resynchronization therapy defibrillator (ANALYST SALES-D) in place Discharge Disposition: Home Social History [...] Luna Mott Patient Age: 71 y.o. Language: Slovenian Race: White Ethnicity: Not nor Admit date: 07/23/2022 Discharge date and time: 07/24/22 Attending Physician: Lalit Mcmahon MD Discharge Physician: Lalit Mcmahon MD Follow-up Recommendations for Providers: - s/p ANALYST SALES-D implant - post implant QRS 130 ms [...] Nevus ??? Solar lentigo Operations/Major Procedures: 07/23/22: PENDING SALE TO [facility] ANALYST SALES-D implant History of Presentation: 71 y.o. female with a history of HFrEF, LBBB, QRS >150, NYHA II who is POD#1 of ANALYST SALES-D implant ([employer]). Hospital Course: Elective admission for ANALYST SALES-D implant Admitted post-implant for pain management, telemetry [...] (heart failure with reduced ejection fraction) [I50.20] ANALYST SALES-D implant Admission Condition: good Indication for Admission: [...] g Refills: 3 fluticasone propionate 50 mcg/actuation [place], Suspension Commonly known as: Flonase 1 spray [...] F. The office scheduling phone number is [phone]. ARM MOVEMENT RESTRICTIONS POST-IMPLANT - Do not [...] please call the Cardiac ElectrophysiologyTriage Nurse at [phone], option 3. General Instructions None Discharge References/Attachments [...] F. The office scheduling phone number is [phone]. ARM MOVEMENT RESTRICTIONS POST-IMPLANT - Do not [...] please call the Cardiac ElectrophysiologyTriage Nurse at [phone], option 3. documented in this encounter Medications [...] with spacer fluticasone propionate (Flonase) 50 mcg/actuation [place], Suspension 1 spray by Each Nare route [...] Cardiac Electrophysiology Post-Implant Device Interrogation Luna Mott [id number] 07/24/2022 History: Luna Mott is a 71 y.o. female with a history of HFrEF, LBBB, QRS >150, NYHA II who is POD#1 of ANALYST SALES-D implant ([employer]). Overall feels well this morning. Ready [...] WOB Neuro- A&Ox3 Device Interrogation: Data ?? Dental Front Office Assistant Model # Serial # Generator [employer] G447 [id number] Atrial Lead [employer] 7841 [id number] RV Lead [employer] 0672 794592 LV Lead [employer] 4674 086462 ?? Diagnostics Pacing Mode: DDD 60-130 Underlying Rhythm: [place] Atrial Episodes: None Ventricular Episodes: None FINAL PROGRAMMING: Pacing: Mode Lower rate (ppm) Upper rate (ppm) ?? DDD 60 130 VF: Rate (bpm) #Antitachycardia pacing First shock energy (J) ?? 200 Quick convert 41 VT: 170 Monitor only Monitor only ? Battery and Leads Impedances (ohms) Sensing (mV) Thresholds HV RA RV LV RA RV LV RA RV LV 73 [phone] (LVa) 7.7 13.1 >25 0.4V @ 0.4 ms 0.4V @ 0.4 ms 0.5 V @ 1.0 ms POD#1 CXR: All leads in nominal positioning Impression: 71 y.o. female who is s/p ANALYST SALES-D implant for LBBB, NYHA II, HFrEF. - [...] ([facility]) Fadi Nunez MD 07/24/2022 Pager: [phone] I met with the patient today and [...] agreement. ? Dr. Lalit Mcmahon, electrophysiology attending ([id number]) * Zaria Wright RN - 07/23/2022 8:28 [...] HF, QRS > 150 ms presents for ANALYST SALES-D placement. ROS: Denies recent fevers or chills [...] 0.9) flush 5 mL 5 mL Intravenous [id number] ramos MD ??? sodium chloride 0.9 % [...] HF, QRS > 150 ms presents for ANALYST SALES-D placement. Backup would be LBBAP lead. Antibiotics: cefazolin Rationales for, intended benefits and potential risk of planned procedures reviewed. The patient indicated understanding and agreement with the plan. Informed consent signed. Procedure checklist completed. Fadi Nunez MD Cardiac Electrophysiology Fellow [facility] Pager [phone] 07/23/2022 I met with the patient today [...] agreement. ? Dr. Lalit Mcmahon, electrophysiology attending ([id number]) documented in this encounter Miscellaneous Notes * Brief Op Note - Lalit Mcmahon MD - 07/23/2022 4:04 PM EDT Brief Operative Note Patient Name: Luna Mott : [id number] MR#: [id number] Case Date: 07/23/2022 Surgeon: Surgeon(s) and Role: [...] AM EST Hospital Encounter [place] [address] Arrived Scheduled Orders Name Type Priority Associated Diagnoses Orde r Schedule EKG 12 Lead ECG Routine Cardiac resynchronization therapy defibrillator (ANALYST SALES-D) in place One Time for 1 Occurrences [...] (Bezet) 522 ms MUSE SYSTEM Calculated R Fowler 78 degrees MUSE SYSTEM Calculated T Fowler -71 degrees MUSE SYSTEM INTERPRETATION AV dual-paced [...] who have questions please contact the health certified caregiver that requested your imaging first. ? [...] patients who have questions please contactthe health certified caregiver that requested your imaging first. Lalit Mcmahon MD IMG DX ORDERABLES * ELECTROPHYSIOLOGY PROCEDURE (07/23/2022 1:11 PM EDT) Anatomical Region Laterality Modality Other Narrative 07/23/2022 4:24 PM EDT Table formatting from the original result was not included. BIVENTRICULAR ICD IMPLANTATION Salesperson Used Cars: Lalit Mcmahon MD Fellow: Fadi Nunez MD [...] the entire procedure. LEAD AND GENERATOR DATA: Dental Front Office Assistant Model # Serial # Generator [employer] [id number] Atrial Lead [employer] 7841 [id number] RV Lead [employer] 0672 099028 LV Lead [employer] 4674 097372 PACE/SENSE DATA: Sensed wave (mV) Threshold (V) [...] (cGycm2) 300 CONCLUSIONS: Successful implantation of a [employer] biventricular ICD for primary prevention and treatment of symptoms related to congestive heart failure. Follow up in EP clinic in 1-2 months. Procedures performed: new ICD system ( cpt 67695-N5); implant LV lead at time of ICD insertion (cpt 53303) I have read, edited and approve of this report: Lalit Mcmahon MD S Cardiac Electrophysiology 07/23/2022 4:22 PM Procedure Note Lalit Mcmahon MD - 07/23/2022 BIVENTRICULAR ICD IMPLANTATION Salesperson Used Cars: Lalit Mcmahon MD Fellow: Fadi Nunez MD [...] in the entireprocedure. LEAD AND GENERATOR DATA: Dental Front Office Assistant Model # Serial # Generator [employer] [id number] Atrial Lead [employer] 7841 5289032 RV Lead [employer] 0672 047217 LV Lead [employer] 4674 832915 PACE/SENSE DATA: Sensed wave (mV) Threshold (V) [...] (cGycm2) 300 CONCLUSIONS: Successful implantation of a [employer] biventricular ICD forprimary prevention and treatment of symptoms related to congestive heartfailure. Follow up in EP clinic in 1-2 months. Procedures performed: new ICD system ( cpt 47823-J6); implant LV lead attime of ICD insertion (cpt 69217) I have read, edited and approve of this report: Lalit Mcmahon MD [facility] Cardiac Electrophysiology 07/23/2022 4:22 PM Lalit Mcmahon MD EP PROCEDURE ORDERAB LES * POCT Glucose (07/23/2022 12:54 PM EDT) Glucose, POC 83 65 - 199 mg/dL [facility] Comment: Supplemental ranges: <140 mg/dL before meals <180 mg/dL all other times of the day Blood 07/23/2022 12:5 4 PM EDT 07/23/2022 12:54 PM EDT Lalit Mcmahon MD POINT OF CARE TEST O RDERABLES Performing Organization Address [facility] Co de Phone Number [facility] [place] [address] * EKG 12 Lead (07/23/2022 12:33 PM EDT) Ventricular rate 72 BPM MUSE SYSTEM Atrial Rate 72 BPM MUSE SYSTEM P-R Interval 158 ms MUSE SYSTEM QRS Duration 176 ms MUSE SYSTEM Q-T Interval 458 ms MUSE SYSTEM QTC Calculated (Bezet) 501 ms MUSE SYSTEM Calculated P Fowler 34 degrees MUSE SYSTEM Calculated R Fowler 12 degrees MUSE SYSTEM Calculated T Fowler -173 degrees MUSE SYSTEM INTERPRETATION Normal sinus rhythm Left bundle branch block Abnormal ECG No previous ECGs available Confirmed by MD Salome, Lalit ([id number]) on 07/23/2022 1:19:03 PM MUSE SYSTEM 07/23/2022 12:3 3 PM EDT 07/23/2022 1:19 PM EDT Lalit Mcmahon MD ECG ORDERABLES Performing Organization Address [facility] de Phone Number MUSE SYSTEM * Differential, Automated (07/23/2022 11:55 AM EDT) Neutrophil % 62.6 % [facility] Neutrophil Absolute 4.14 1.70 - 6.10 x10(3)/[facility] Lymph % 27.0 % [facility] Lymphocytes Abs 1.8 0.9 - 3.2 x10(3)/[facility] Monocyte % 7.3 % [facility] Monocyte Abs 0.5 0.3 - 0.9 x10(3)/[facility] Eos % 2.3 % [facility] Eosinophils Abs 0.2 0.0 - 0.4 x10(3)/[facility] Basophil % 0.6 % [facility] Baso Absolute 0.0 0.0 - 0.1 x10(3)/[facility] Immature Gran % 0.20 % [facility] Comment: Immature granulocytes(IG's)percentage and absolute count will include metamyelocytes, myelocytes, and promyelocytes. Blood smears from CBCs yielding IG's will be scanned manually for concordance. If this scan disagrees with the automated IG or if promyelocytes are noted, a manual differential will be performed. Immature Gran Absolute 0.01 0.00 - 0.04 x10(3)/[facility] Blood 07/23/2022 11:5 5 AM EDT 07/23/2022 12:07 PM EDT Narrative Resulting Agency Comment Spec In Lab Lalit Mcmahon MD HEMATOLOGY ORDERABLE S [facility] [place] [address] * Hemogram (07/23/2022 11:55 AM EDT) White Blood Cell 6.6 4.0 - 9.5 x10(3)/[facility] Red Blood Cell 4.50 4.00 - 5.21 x10(6)/[facility] Hemoglobin 13.7 11.7 - 15.5 g/dL [facility] Hematocrit 42.5 35.7 - 45.8 % [facility] Mean Cell Volume 94.4 82.6 - 94.4 fL [facility] Mean Cell Hemoglobin 30.4 27.1 - 32.0 pg [facility] Mean Cell Hemoglobin Concentration 32.2 31.7 - 35.0 g/dL [facility] Platelet 193 145 - 357 x10(3)/[facility] RDW Standard Deviation 45.5 37.0 - 46.0 fL [facility] RDW coefficient of variation 13.2 11.5 - 14.1 % [facility] Mean Platelet Volume 9.5 7.6 - 12.9 fL [facility] NRBC% auto 0.0 % [facility] NRBC Absolute 0.000 0.000 - 0.000 x10(3)/mcL [facility] Blood 07/23/2022 11:5 5 AM EDT 07/23/2022 12:07 PM EDT Narrative Resulting Agency Comment Spec In Lab Lalit Mcmahon MD HEMATOLOGY ORDERABLE S [facility] [address] [place] [address] * (ABNORMAL) BMP w/fasting Glucose (07/23/2022 11:55 AM EDT) Glucose Fasting 110(H) 65 - 99 mg/dL [facility] Comment: ?Fasting* Glucose Interpretive Criteria Normal [...] Urea Nitrogen 23(H) 8 - 18 mg/dL [facility] Creatinine 1.07 0.70 - 1.20 mg/dL [facility] Sodium 141 135 - 145 mmol/L [facility] Potassium 4.8 3.5 - 5.0 mmol/L [facility] Comment: Please note: ??Patients with WBC >100,000 may have falsely elevated Potassium levels. ??For accurate Potassium quantification in these patients send serum separator tube (gold top) for subsequent determinations. ??Contact the Clinical Chemistry Laboratory if there are any questions. Chloride 106 98 - 107 mmol/L [facility] Carbon Dioxide 26 22 - 31 mmol/L [facility] Anion Gap 9 5 - 15 mmol/L [facility] Calcium 9.7 8.5 - 10.5 mg/dL [facility] Est Glomerular Filtration Rate 55(L) >=60 mL/min/1. 73 m?? [facility] Comment: This patient's estimated GFR was [...] Mcmahon MD CHEMISTRY ORDERABLES Performing Organization Address [facility] Co de Phone Number [facility] [place] [address] * Prothrombin Time (07/23/2022 11:55 AM EDT) Prothrombin Time 11.7 9.4 - 12.5 sec [facility] International Normalization Ratio 1.0 [facility] Comment: An INR <2.0 indicates adequate [...] Performing Organization Address City/[facility] Co de Phone Number [facility] [place] [address] documented in this encounter Visit Diagnoses Diagnosis HFrEF (heart failure with reduced ejection fraction)- Primary Left bundle branch block Other left bundle branch block Nonischemic cardiomyopathy Other primary cardiomyopathies Cardiac resynchronization therapy defibrillator (ANALYST SALES-D) in place Left bundle branch block Other [...] Routine documented in this encounter Care Teams Treater Helper Relationship Specialty Start Date End Date Lolly Oliveira MD [address] [place] [address] PCP - General 07/17/13 documented as of this encounter
--- OUTSIDE RECORDS SUMMARY | 2024-02-16 11:37 | XMS_ITS | Encounter Summary ---
Author Organization [facility] [place] [address] Care Team Providers Care Test And Turn Up Technician Name Role Phone Lolly Oliveira MD Primary Care Provider [phone] Reason for Visit * Reason Comments Psoriasis Encounter Details Date Type Department Care Team (Late st Contact Info) Description 04/09/2022 1:45 PM EST Office Visit Dermatology at [address] [address] Clay Ramírez MD [address] [facility] [place] [address] Psoriasis, guttate Social History Tobacco Use Types [...] AM EST Hospital Encounter Non-[place] [address] Arrived documented as of this encounter Visit Diagnoses Diagnosis Psoriasis, guttate Other psoriasis documented in this encounter Care Teams Test And Turn Up Technician Relationship Specialty Start Date End Date Lolly Oliveira MD [address] [place] [address] PCP - General 07/17/13 documented as of this encounter
--- OUTSIDE RECORDS SUMMARY | 2024-02-16 11:37 | XMS_ITS | Encounter Summary ---
Author Organization [facility] [place] [address] Care Team Providers Care Sprinkler Repair Technician Name Role Phone Unavailable Primary Care Provider Unavailabl e Encounter Details Date Type Department Care Team (Late st Contact Info) Description 07/14/2013 Orders [place] [address] Eleno Christian MD [facility] [place] [address] Social History Tobacco Use Types Packs/Day Years [...] EST Hospital Encounter Non-Invasive [place] [address] Arrived documented as of this encounter Visit Diagnoses Not on filedocumented in this encounter
[2024-02-16 11:39] VITALS: BP 148/70; PULSE 73
[2024-02-16 11:45] VITALS: BP 137/76
[2024-02-18 11:23] VITALS: BP 162/79; PULSE 74
--- OUTSIDE RECORDS SUMMARY | 2024-02-18 11:25 | XMS_ITS | Encounter Summary ---
Author Organization [facility] Address [address] [place] [address] Care Team Providers Care Flowers Salesperson Name Role Phone Lolly Oliveira MD Primary Care Provider [phone] Encounter Details Date Type Department Care Team (Late st Contact Info) Description 05/29/2002 Results Only [facility] conversion [address] [place] [address] Silvia Diehl, [address] [place] [place] [address] Social History Tobacco Use Types Packs/Day Years [...] Name: ? LYLEJING ? Accession #: ? [id number] : ? 1950 (Age: 51) ??F ?Collect Date: ? 05/29/2002 Location: ? [facility] ? Receive Date: ? 05/31/2002 Provider: ?SILVIA DIEHL DIGITAL MEDIA MANAGER Copy to: ? Specimen/Source: ?ThinPrep Pap [...] [facility] 05/29/2002 05/31/2002 us Silvia Diehl DIGITAL MEDIA MANAGER PATHOLOGY ORDERABLES Final R esult [facility] [address] [place] [address] documented in this encounter Visit Diagnoses Not on filedocumented in this encounter Care Teams Flowers Salesperson Relationship Specialty Start Date End Date Lolly Oliveira MD [address] [place] [address] PCP - General 11/13/08 documented as of this encounter
--- OUTSIDE RECORDS SUMMARY | 2024-02-18 11:25 | XMS_ITS | Encounter Summary ---
Author Organization [facility] Address [address] [place] [address] Care Team Providers Care Paint Stock Clerk Name Role Phone Lolly Oliveira MD Primary Care Provider [phone] Encounter Details Date Type Department Care Team (Late st Contact Info) Description 05/02/2004 Results Only [facility] conversion [address] [place] [address] Lolly Oliveira MD [address] [place], [place] [id number] Social History Tobacco Use Types Packs/Day Years [...] 66. [facility] Report Status Final [id number] [facility] 05/02/2004 9:32 EST 05/10/2004 9:32 EST us Lolly Oliveira MD MICROBIOLOGY - GENERAL ORDERABL ES Final Result [facility] [address] [place] [address] * CYTOPATHOLOGY (05/02/2004 0:00 EST) Pathology Report: CYTOPATHOLOGY REPORT Reports generated via electronic interface contain original data; however they are lacking the format of the original report. Caution should be taken when reading/interpreti ng unformatted reports. Name: ? JING ALVARENGA ? Accession #: ? [id number] : ? 1950 (Age: 53) ??F ?Collect [...] ORDERABLES Final Resu lt Performing Organization Address City/State/[facility] Co de Phone Number [facility] [address] [place] [address] documented in this encounter Visit Diagnoses Not on filedocumented in this encounter Care Teams Paint Stock Clerk Relationship Specialty Start Date End Date Lolly Oliveira MD [address] [place] [address] PCP - General 11/13/08 documented as of this encounter
--- OUTSIDE RECORDS SUMMARY | 2024-02-18 11:25 | XMS_ITS | Clinical Summary ---
Author Organization [facility] [place] [address] Care Team Providers Care Digital Pre Press Operator Name Role Phone Lolly Oliveira MD Primary Care Provider [phone] Allergies Active Allergy Reactions Criticality Noted Date [...] PM EST Hospital Encounter Non-[place] [address] Discharge Disposition: Home from Last [...] AM EST Hospital Encounter Non-[place]vasive [place] [address] Arrived Health Maintenance Due Date Last Done [...] series) 11/07/2023 Medical Devices Implanted Type Area Wireless Telegrapher Device Identifier Shelf Expiration Date Model / Serial / Lot Bsx: [id number]: [id number]/18/2 023 Implanted: by Lalit Mcmahon MD (Quantity not on file) Defibrillator Chest Wall [employer] G447 / [id number] / Bsx: [id number]: [id number]/18/2 023 Implanted: by Lalit Mcmahon MD (Quantity not on file) Lead Heart [employer] 4674 / [id number] / Bsx: [id number]: [id number] Implanted: by Lalit Mcmahon MD (Quantity not on file) Lead Heart [employer] 7841 / [id number] / Bsx: [id number]: [id number]/18/2 023 Implanted: by Lalit Mcmahon MD (Quantity not on file) Lead Heart [employer] 0672 / [id number] / Procedures Procedure Name Priority Date/Time Associated [...] Status decision made by: Patient Care Teams Digital Pre Press Operator Relationship Specialty Start Date End Date Lolly Oliveira MD [address] [place] [address] PCP - General 07/17/13
--- OUTSIDE RECORDS SUMMARY | 2024-02-18 11:25 | XMS_ITS | Encounter Summary ---
Author Organization [facility] Address [address] [place] [address] Care Team Providers Care Maritime Engineer Name Role Phone Lolly Oliveira MD Primary Care Provider [phone] Encounter Details Date Type Department Care Team (Late st Contact Info) Description 11/13/2020 Lab Requisition [facility] Pathology & Laboratory Medicine - [address] [address] Outr Resulting Lab, Provider Social History Tobacco [...] MICROBIOLOGY - GENER AL ORDERABLES Final Result [facility] [address] [place] [address] * COVID-19 TESTING (11/13/2020 7:30 EDT) COVID-19 rt-PCR Result Negative Negative 11/14/2020 11:46 EDT [facility] Comment: This test [...] performed using the med SARS-CoV-2 assay ([employer] on the Med 6800 System Performing Lab Med [address] [facility] Lab 11/14/2020 11:46 EDT [facility] Swab 11/13/2020 7:30 EDT 11/13/2020 20:57 EDT us Provider Outr Resulting Lab MICROBIOLOGY - GENER AL ORDERABLES Final Result Performing Organization Address [facility] Co de Phone Number [facility] [address] [place] [address] documented in this encounter Visit Diagnoses Not on filedocumented in this encounter Care Teams Maritime Engineer Relationship Specialty Start Date End Date Lolly Oliveira MD [address] [place] [address] PCP - General 11/13/08 documented as of this encounter
--- OUTSIDE RECORDS SUMMARY | 2024-02-18 11:25 | XMS_ITS | Encounter Summary ---
Author Organization [facility] Address [address] [place] [address] Care Team Providers Care Regulatory Compliance Officer Name Role Phone Lolly Oliveira MD Primary Care Provider [phone] Encounter Details Date Type Department Care Team (Late st Contact Info) Description 06/16/2012 Results Only [facility] Services - [facility] ([facility]) [address] [place], [place] [id number] Lolly Oliveira MD [address] [place], [place] [id number] Social History Tobacco Use Types Packs/Day Years [...] ? JING ALVARENGA ? Accession #: ? [id number] : ? 1950 (Age: 61) ??F ?Collect [...] ORDERABLES Final Resu lt [facility] [address] [place] [address] documented in this encounter Visit Diagnoses Not on filedocumented in this encounter Care Teams Regulatory Compliance Officer Relationship Specialty Start Date End Date Lolly Oliveira MD [address] [place] [address] PCP - General 11/13/08 documented as of this encounter
--- OUTSIDE RECORDS SUMMARY | 2024-02-18 11:25 | XMS_ITS | Encounter Summary ---
Author Organization [facility] Address [address] [place] [address] Care Team Providers Care Rum Processing Operator Name Role Phone Unavailable Primary Care Provider Unavailabl e Encounter Details Date Type Department Care Team (Late st Contact Info) Description 11/07/[address] [facility] - [facility] [place] [address] [place] [address] Kenneth Parker MD [address] [place] [id number] Social History Tobacco Use Types Packs/Day Years [...] reading/interpreti ng unformatted reports. ? Name: ? IJNG ALVARENGA ? Accession #: ? [id number] ? : ? 1950 (Age: 58) ??F [...] ORDERABLES Final Resu lt [facility] [address] [place] [address] documented in this encounter Visit Diagnoses Not on filedocumented in this encounter
--- OUTSIDE RECORDS SUMMARY | 2024-02-18 11:25 | XMS_ITS | Encounter Summary ---
Author Organization [place] [address] Care Team Providers Care Wire Preparation Worker Name Role Phone Lolly Oliveira MD Primary Care Provider [phone] Encounter Details Date Type Department Care Team (Latest Contact Info) Description 01/16/2024 10:00 AM EST - 01/16/2024 11:59 PM EST Hospital Encounter Non-[place] [phone] Discharge Disposition: Home Social History Tobacco Use [...] with spacer fluticasone propionate (Flonase) 50 mcg/actuation Baxter, Suspension 1 spray by Each Nare route daily as needed. documented as of this encounter Plan of Treatment Upcoming Encounters Date Type Department Care Team (Late st Contact Info) Description 04/15/2024 10:00 AM EST Hospital Encounter Non-[place] [address] Arrived documented as of this encounter Procedures [...] on filedocumented in this encounter Care Teams Wire Preparation Worker Relationship Specialty Start Date End Date Lolly Oliveira MD [address] [place] [address] PCP - General 07/17/13 documented as of this encounter
--- OUTSIDE RECORDS SUMMARY | 2024-02-18 11:25 | XMS_ITS | Referral Summary ---
Author Organization [facility] Address [address] [place] [address] Care Team Providers Care Micro Computer Data Processor Name Role Phone Lolly Oliveira MD Primary Care Provider [phone] Social History Tobacco Use Types Packs/Day Years Used Date Smoking Tobacco: Never Assessed Comments Unknown Sex and Gender Information Value Date Recorded Sex Assigned at Not on file Legal Sex Female 18:31 EST Gender Identity Not on file Sexual Orientation Not on file Plan of Treatment Not on file Insurance [facility] MEDICARE Care Teams Micro Computer Data Processor Relationship Specialty Start Date End Date Lolly Oliveira MD [address] [place] [address] PCP - General 11/13/08
--- OUTSIDE RECORDS SUMMARY | 2024-02-18 11:25 | XMS_ITS | Clinical Summary ---
Author Organization [facility] Address [address] [place] [address] Care Team Providers Care Artificial Flower Maker Name Role Phone Lolly Oliveira MD Primary Care Provider [phone] Social History Tobacco Use Types Packs/Day Years [...] 08/10/2023 COVID-19 Vaccine (2023- season) 2023 Insurance [facility] MEDICARE Care Teams Artificial Flower Maker Relationship Specialty Start Date End Date Berrian, Lolly, MD [address] [place] [address] PCP - General 11/13/08
--- OUTSIDE RECORDS SUMMARY | 2024-02-18 11:25 | XMS_ITS | Encounter Summary ---
Author Organization [facility] Address [address] [place] [address] Care Team Providers Care Plant Operations Coordinator Name Role Phone Lolly Oliveira MD Primary Care Provider [phone] Encounter Details Date Type Department Care Team (Late st Contact Info) Description 04/25/2009 Orders Only [facility] - [facility] [place] [address] [place], [place] [id number] Lolly Oliveira MD [address] [place], [place] [phone] Social History Tobacco Use Types Packs/Day Years [...] ? JING ALVARENGA ? Accession #: ? [id number] ? : ? 1950 (Age: 58) ??F [...] ORDERABLES Final Resu lt Performing Organization Address [facility]/State/ZIP Co de Phone Number [facility] [address] [place] [address] documented in this encounter Visit Diagnoses Not on filedocumented in this encounter Care Teams Plant Operations Coordinator Relationship Specialty Start Date End Date Lolly Oliveira MD [address] [place] [address] PCP - General 11/13/08 documented as of this encounter
--- OUTSIDE RECORDS SUMMARY | 2024-02-18 11:25 | XMS_ITS | Data Portability ---
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 Help? Yes [email or web address] Information not available 05/21/2023 Because Of Any Health Problems, Do You Need The Help Of Another Person With Your Personal Care Needs Such As Eating, Bathing, Dressing, Or Getting Around The House? No [email or web address] Information not available 05/21/2023 Can You Handle Your Own Money Without Help? Yes Information not available 05/21/2023 Are You Having Difficulties Driving Your Car? No [email or web address] Information no t available 05/21/2023 Do You Always Fasten Your Seat Belt When You Are In A Car? Yes- Usually [email or web address] Information not available 05/21/2023 How Often During The Past Four Weeks Have You Been Bothered By Any Of The Following Problems? Falling Or Dizzy When Standing Up? Never [email or web address] Information not available 05/21/2023 Sexual Problems? Never [email or web address] Informat ion not available 05/21/2023 Trouble Eating Well? Sometimes [email or web address] Information not available 05/21/2023 Teeth Or Denture Problems? Sometimes [email or web address] Information not available 05/21/2023 Problems Using The Telephone? Never Information not available 05/21/2023 Tiredness Or Fatigue? Sometimes [email or web address] Information not available 05/21/2023 Have You Had 2 Or More Falls Or Sustained An Injury With A Fall In The Last Year? No [email or web address] Information no t available 05/21/2023 Do You Have Difficulty With Walking Or Balance? No [email or web address] Information not available 05/21/2023 Do You Currently Use A Hearing Device? No [email or web address] Information not available 05/21/2023 Do You Currently Have Any Trouble With Your Vision? Yes Information no t available 05/21/2023 Do You Exercise For About 20 Minutes Three Or More Days A Week? Yes- Most Of The Time [email or web address] Information not available 05/21/2023 Are There Any Safety Concerns In Your Home (see Attached [facility] Pamphlet)? No [email or web address] Information not available 05/21/2023 How Often Do You Have Trouble Taking Medicines The Way You Have Been Told To Take Them? I Always Take Them As Prescribed [email or web address] Information not available 05/21/2023 How Confident Are You That You Can Control And Manage Most Of Your Health Problems? Very Confident Information not available 05/21/2023 Do You Currently Have Any Difficulty With Your Hearing? No Information not available 05/21/2023 Date Of Most Recent SBINS 05/21/2023 [email or web address] Information not available 05/21/2023 What Was The Date Of Your Most Recent Tobacco Screening? 09/01/2023 Information not available 09/01/2023 Has Tobacco Cessation Counseling Been Provided? Yes Information not available 09/01/2023 On What Date Was Tobacco Cessation Counseling Provided? 09/01/2023 Information not available 09/01/2023 Do You Or Have You Ever Used Any Other Forms Of Tobacco Or Nicotine? No [email or web address] Information not available 05/21/2023 Sex: Female Functional [...] preservative free, adsorbed 9 completed Not Available [facility] 01/15/2023 04:53:39 Tdap 8 completed Not Available [facility] 01/15/2023 04:53:39 zoster live 3 completed Not Available [facility] 01/15/2023 04:53:40 Pneumococcal conjugate PCV 13 6 completed Not Available [facility] 01/15/2023 04:53:40 Influenza, high-dose, trivalent, PF 8 completed Not Available [facility] 01/15/2023 04:53:41 Td(adult) unspecified formulation 3 completed Not Available [facility] 01/15/2023 04:53:41 Influenza, split virus, trivalent, preservative 6 completed Not Available [facility] 01/15/2023 04:53:41 Influenza, split virus, trivalent, preservative 5 completed Not Available [facility] 01/15/2023 04:53:41 Influenza, split virus, quadrivalent, PF 9 completed Not Available [facility] 01/15/2023 04:53:41 zoster recombinant 9 completed Not Available [facility] 01/15/2023 04:53:42 zoster recombinant 8 completed Not Available [facility] 01/15/2023 04:53:42 Influenza, high-dose, quadrivalent, PF 1 completed Not Available [facility] 01/15/2023 04:53:43 Influenza, high-dose, quadrivalent, PF 0 completed Not Available [facility] 01/15/2023 04:53:43 Influenza, high-dose, quadrivalent, PF 2 completed Not Available [facility] 01/15/2023 04:53:43 COVID-19, mRNA, LNP-S, PF, 100 mcg/0.5mL dose or 50 mcg/0.25mL dose 2 completed Not Available [facility] 01/15/2023 04:53:43 COVID-19 vaccine, vector-nr, rS-Ad26, PF, 0.5 mL 1 completed Not Available [facility] 01/15/2023 04:53:44 SARS-COV-2 (COVID-19) vaccine, UNSPECIFIED 1 completed Not Available [facility] 01/15/2023 04:53:44 SARS-COV-2 (COVID-19) vaccine, UNSPECIFIED 1 completed Not Available [facility] 01/15/2023 04:53:44 pneumococcal polysaccharide PPV23 5 completed Not Available [facility] 01/15/2023 04:53:45 Hep B, unspecified formulation 4 completed Not Available [facility] 01/15/2023 04:53:45 Hep B, unspecified formulation 3 completed Not Available [facility] 01/15/2023 04:53:46 Hep B, unspecified formulation 3 completed Not Available [facility] 01/15/2023 04:53:46 influenza, unspecified formulation 0 completed Not Available [facility] 01/15/2023 04:53:47 influenza, unspecified formulation 3 completed Not Available [facility] 01/15/2023 04:53:47 influenza, unspecified formulation 9 completed Not Available [facility] 01/15/2023 04:53:47 influenza, unspecified formulation 1 completed Not Available [facility] 01/15/2023 04:53:47 influenza, unspecified formulation 7 completed Not Available [facility] 01/15/2023 04:53:48 influenza, unspecified formulation 4 completed Not Available [facility] 01/15/2023 04:53:48 influenza, unspecified formulation 8 completed Not Available [facility] 01/15/2023 04:53:48 influenza, unspecified formulation 2 completed Not Available [facility] 01/15/2023 04:53:48 Influenza, high-dose, quadrivalent, PF 3 completed Not Available [facility] 03/19/2023 05:33:03 COVID-19, mRNA, LNP-S, PF, herminio-sucrose, 30 mcg/0.3 mL 3 completed Not Available [facility] 03/19/2023 05:33:03 COVID-19, mRNA, LNP-S, bivalent, PF, 50 mcg/0.5 mL or 25mcg/0.25 mL dose 4 completed DENYS Bauer, [facility] 12/20/2023 15:23:33 Respiratory syncytial virus (RSV) vaccine, unspecified 4 completed DENYS Bauer, [facility] 12/20/2023 15:24:29 influenza, unspecified formulation 4 completed DENYS Bauer, [facility] 12/20/2023 15:25:14 Past Encounters Encounter ID Performer Location Encounter Start Date Encounter Closed Date Diagnosis/Indication Diagnosis SNOMED-CT Code Diagnosis ICD10 Code [id number] LOLLY CORTEZ MD [address] [address] 05/21/2023 10:03:54 05/21/2023 11:37:49 Onychomycosis 163001949 B35.1 Asthma 661016416 J45.90 9 Cardiomyopathy 38472914 I10 Disorder of hip joint 42 4190981 M12.859 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 Hyperlipidemia 29998840 E78.5 Vulval and /or perineal noninflammatory disorders 240193300 N90.9 Adult heal th examination 108009568 Z00.[id number] [place] [address] 09/01/2023 10:23:16 09/01/2023 13:28:10 Vertigo 830940557 R42 Impacted c erumen of bilateral ears 3036874621 566051 H61.23 [id number] LOLLY CORTEZ MD [facility] [address] [place] [address] 11/26/2023 07:26:08 11/26/2023 08:10:59 Screening mammography 58790369 Z12.31 Adjustment disorder 1722 6007 F43.20 Asthma 486239926 J45.90 9 Essential hypertension 85618817 I10 Guttate psoriasis 232516 00 L40.4 Cardiomyopathy 29596654 I10 Hyperlipidemia 41156033 E78.5 Prediabetes 304234370 R7 3.03 Health Concerns Section Related Observation LastModified by Organization Detai ls LastModified Time None Recorded Concern Status LastModified by Organization Details LastModified Time None Recorded Advance Directives Directive None Recorded Payers Encounter Date Sequence Insurance Name Policy Number Policy Lema Covered Member ID Lema Member ID Guarantor Name 05/21/2023 1 [id number] - [place]PO) [id number] Luna Mott [id number] Luna Mott 09/01/2023 1 [place] - [place]) [id number] Luna Mott [id number] Luna Lunaslin 11/26/2023 1 [place] - [place]) [id number] Luna Lunaslin [id number] Luna Mott Notes Date Note Type Note Provider Name and Address Organization Details Recorded Time 05/21/2023 text/html Thais here today for an annual wellness exam MD [address], [place], [address], [facility]. 05/24/2023 18:32:35 09/01/2023 text/html Luna [...] it. JESSICA INGRAM PA-C [address], [place], [address], [facility]. 09/01/2023 13:55:07 11/26/2023 text/html Thais here today for follow-up of cardiomyopathy, obesity MD [address], [place], [address], [facility]. 11/28/2023 09:26:44 OBGyn Episode No OBEpisode recorded.
--- OUTSIDE RECORDS SUMMARY | 2024-02-18 11:25 | XMS_ITS | Encounter Summary ---
Author Organization [facility] Address [address] [place] [address] Care Team Providers Care Residential Program Manager Name Role Phone Lolly Oliveira MD Primary Care Provider [phone] Encounter Details Date Type Department Care Team (Late st Contact Info) Description 02/11/2021 Lab Requisition [facility] Pathology & Laboratory Medicine - [address] [id number] Outr Resulting Lab, Provider Social History Tobacco [...] MICROBIOLOGY - GENER AL ORDERABLES Final Result [facility] [address] [place] [address] * COVID-19 TESTING (02/11/2021 8:00 EST) COVID-19 rt-PCR Result Negative Negative 02/12/2021 14:17 EST [facility] Comment: This test [...] performed using the med SARS-CoV-2 assay ([employer] on the Med 6800 System Performing Lab Med [address] [facility] Lab 02/12/2021 14:17 EST [facility] Swab 02/11/2021 8:00 EST 02/11/2021 22:22 EST us Provider Outr Resulting Lab MICROBIOLOGY - GENER AL ORDERABLES Final Result [facility] [address] [place] [address] documented in this encounter Visit Diagnoses Not on filedocumented in this encounter Care Teams Residential Program Manager Relationship Specialty Start Date End Date Lolly Oliveira MD [address] [place] [address] PCP - General 11/13/08 documented as of this encounter
--- OUTSIDE RECORDS SUMMARY | 2024-02-18 11:25 | XMS_ITS | Encounter Summary ---
Author Organization [facility] Address [address] [place] [address] Care Team Providers Care Manager Fire Name Role Phone Lolly Oliveira MD Primary Care Provider [phone] Encounter Details Date Type Department Care Team (Late st Contact Info) Description 03/21/2019 Lab Requisition [facility] Pathology & Laboratory Medicine - [address] [address] Unknown, Provider, Social History Tobacco Use Types [...] 211 - 911 pg/mL 03/22/2019 11:52 EST [facility] Blood VENOUS BLOOD / Unknown 03/16/2019 9:25 EST 03/21/2019 21:35 EST us Provider Unknown CHEMISTRY & BLOOD GAS ORDERA BLES Final Result [facility] [address] [place] [address] documented in this encounter Visit Diagnoses Not on filedocumented in this encounter Care Teams Manager Fire Relationship Specialty Start Date End Date Lolly Oliveira MD [address] [place] [address] PCP - General 11/13/08 documented as of this encounter
--- OUTSIDE RECORDS SUMMARY | 2024-02-18 11:25 | XMS_ITS | Encounter Summary ---
Author Organization [facility] Address [address] [place] [address] Care Team Providers Care Publication Director Name Role Phone Lolly Oliveira MD Primary Care Provider [phone] Encounter Details Date Type Department Care Team (Late st Contact Info) Description 05/27/2021 Lab Requisition [facility] Pathology & Laboratory Medicine - [address] [address] Iman Moran, DO [address] [place], [place] [id number] Encounter for other general examination Social History [...] explore management options, if applicable. 05/30/2021 13:31 [facility] Final Diagnosis A. COLON, POLYP AT 90 CM, BIOPSY/POLYPECTOM Y: - Tubular adenoma. 05/30/2021 13:31 [facility] Attestation By the signature below, the attending physician certifies that they have 1) personally conducted a gross and/or microscopic examination of the described specimen(s), and/or personally interpreted the results of laboratory testing of the described specimen(s), and 2) personally rendered or confirmed the above diagnosis. 05/30/2021 13:31 [facility] at 1331 Clinical History Severe diverticula and polypectomy x1 05/30/2021 13:31 [facility] Gross Description A. Received in formalin labelled with proper patient identification (initials J, K) and colon polyp x1 at 90 cm is a light pineda polypoid tissue measuring 0.2 x 0.2 x 0.2 cm. Submitted intact in A1. MICKEY CARLOS(ASCP) 05/27/2021 19:11 05/30/2021 13:31 [facility] Performing Lab [facility] 05/30/2021 13:31 [facility] Scanned Images 05/30/2021 13:31 [facility] Tissue ENTIRE COLON / Unknown 05/27/2021 11:23 EDT 05/27/2021 16:33 EDT us Iman Moran DO PATHOLOGY ORDERABLES Final Re sult [facility] [address] [place] [address] documented in this encounter Visit Diagnoses Diagnosis Encounter for other general examination documented in this encounter Care Teams Publication Director Relationship Specialty Start Date End Date Lolly Oliveira MD [address] [place] [address] PCP - General 11/13/08 documented as of this encounter
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
--- OUTSIDE RECORDS SUMMARY | 2024-02-18 11:25 | XMS_ITS | Encounter Summary ---
Author Organization [facility] Address [address] [place] [address] Care Team Providers Care Logging Operations Inspector Name Role Phone Lolly Oliveira MD Primary Care Provider [phone] Encounter Details Date Type Department Care Team (Late st Contact Info) Description 04/01/2005 Results Only [facility] [place] conversion [address] [place] [address] Blair Dukes MD [address] [place] [id number] Social History Tobacco Use Types Packs/Day Years [...] ? JING ALVARENGA ? Accession #: ? [id number] ? : ? 1950 (Age: 54) ??F [...] ? Received in [employer]e' s fixative labelled [place] and #1 ??terminal ileum bx is a single 0.3 x 0.2 x 0.2 cm tissue, submitted intact as (A). Received in [employer]' [employer] fixative labelled [place] and #2 ??transverse colon bx is a single 0.2 x 0.2 x 0.2 cm tissue, submitted intact as (B). ??(Dr. Lechuga)/[facility] End of Report [facility] 04/01/2005 04/02/2005 15: 24 EST us Blair Dukes MD PATHOLOGY ORDERABLES Final Resul t [facility] [address] [place] [address] documented in this encounter Visit Diagnoses Not on filedocumented in this encounter Care Teams Logging Operations Inspector Relationship Specialty Start Date End Date Lolly Oliveira MD [address] [place] [address] PCP - General 11/13/08 documented as of this encounter
--- OUTSIDE RECORDS SUMMARY | 2024-02-18 11:25 | XMS_ITS | Encounter Summary ---
Author Organization [facility] Address [address] [place] [address] Care Team Providers Care Roller Shop Supervisor Name Role Phone Lolly Oliveira MD Primary Care Provider [phone] Encounter Details Date Type Department Care Team (Late st Contact Info) Description 03/06/2003 Results Only [facility] [place] conversion [address] [place] [address] Lolly Oliveira MD [address] [place], [place] [id number] Social History Tobacco Use Types Packs/Day Years [...] ORDERABLES Final Resu lt [facility] [address] [place] [address] documented in this encounter Visit Diagnoses Not on filedocumented in this encounter Care Teams Roller Shop Supervisor Relationship Specialty Start Date End Date Lolly Oliveira MD [address] [place] [address] PCP - General 11/13/08 documented as of this encounter
--- OUTSIDE RECORDS SUMMARY | 2024-02-18 11:25 | XMS_ITS | Encounter Summary ---
Author Organization [facility] Address [address] [place] [address] Care Team Providers Care Glue Specialty Supervisor Name Role Phone Lolly Oliveira MD Primary Care Provider [phone] Encounter Details Date Type Department Care Team (Late st Contact Info) Description 04/17/2005 Results Only [facility] [place] conversion [address] [place] [address] Lolly Oliveira MD [address] [place], [place] [phone] Social History Tobacco Use Types Packs/Day Years [...] ? JING ALVARENGA ? Accession #: ? [id number] : ? 1950 (Age: 54) ??F ?Collect Date: ? 04/17/2005 Location: ? [facility] ? Receive Date: ? 04/21/2005 Provider: ?LOLLY OLIVEIRA MD Copy to: ? Specimen/Source: ?ThinPrep Pap Test, Cervix/Endocervix, processed on [employer] ThinPrep Imaging System, with manual evaluation Last [...] Final Resu lt [facility] [address] [place] [address] documented in this encounter Visit Diagnoses Not on filedocumented in this encounter Care Teams Glue Specialty Supervisor Relationship Specialty Start Date End Date Lolly Oliveira MD [address] [place] [address] PCP - General 11/13/08 documented as of this encounter
--- OUTSIDE RECORDS SUMMARY | 2024-02-18 11:25 | XMS_ITS | Encounter Summary ---
Author Organization [facility] Address [address] [place] [address] Care Team Providers Care Satellite Tv Installer Name Role Phone Lolly Oliveira MD Primary Care Provider [phone] Encounter Details Date Type Department Care Team (Late st Contact Info) Description 02/20/2020 Lab Requisition [facility] Pathology & Laboratory Medicine - [address] [id number] Outr Resulting Lab, Provider Social History Tobacco [...] in accordance with CLIA regulations, [employer] (CAP) guidelines (May 25, 2019), and FDA guidance (May 06, 2019). This test is only for use under the Food and Drug Administration's Emergency Use Authorization. Swab ENTIRE NASOPHARYNX / Unknown 02/19/2020 16:30 EST 02/20/2020 16:09 EST us Provider Outr Resulting Lab MICROBIOLOGY - GENER AL ORDERABLES Final Result [facility] [place], [place] * COVID-19 TESTING (02/19/2020 16:30 EST) COVID-19 rt-PCR Result NEGATIVE Negative 02/22/2020 23:41 EST [facility] Comment: 2019-novel Coronavirus (2019-nCoV) not [...] in accordance with CLIA regulations, [employer] (CAP) guidelines (May 25, 2019), and FDA guidance (May 06, 2019). This test is only for use under the Food and Drug Administration's Emergency Use Authorization. Performing Lab [facility] 02/22/2020 23:41 EST [facility] Swab 02/19/2020 16:3 0 EST 02/20/2020 16:09 EST us Provider Outr Resulting Lab MICROBIOLOGY - GENER AL ORDERABLES Final Result [facility] [address] [place] [address] [facility] [place], [place] documented in this encounter Visit Diagnoses Not on filedocumented in this encounter Care Teams Satellite Tv Installer Relationship Specialty Start Date End Date Lolly Oliveira MD [address] [place] [address] PCP - General 11/13/08 documented as of this encounter
--- OUTSIDE RECORDS SUMMARY | 2024-02-18 11:25 | XMS_ITS | Encounter Summary ---
Author Organization [facility] Address [address] [place] [address] Care Team Providers Care Utility Maintenance Worker Name Role Phone Lolly Oliveira MD Primary Care Provider [phone] Encounter Details Date Type Department Care Team (Late st Contact Info) Description 04/12/2007 Results Only [facility] [place] conversion [address] [place] [address] Lolly Oliveira MD [address] [place], [place] [id number] Social History Tobacco Use Types Packs/Day Years [...] ? JING ALVARENGA ? Accession #: ? [id number] : ? 1950 (Age: 56) ??F ?Collect Date: ? 04/12/2007 Location: ? [facility] ? Receive Date: ? 04/13/2007 Provider: ?LOLLY OLIVEIRA MD Copy to: ? Specimen/Source: ?ThinPrep Pap Test, Cervix/Endocervix, processed on [employer] ThinPrep Imaging System, with manual evaluation Last [...] ORDERABLES Final Resu lt [facility] [address] [place] [address] documented in this encounter Visit Diagnoses Not on filedocumented in this encounter Care Teams Utility Maintenance Worker Relationship Specialty Start Date End Date Lolly Oliveira MD [address] [place] [address] PCP - General 11/13/08 documented as of this encounter
--- OUTSIDE RECORDS SUMMARY | 2024-02-18 11:26 | XMS_ITS | Encounter Summary ---
Author Organization [facility] [place] [address] Care Team Providers Care Financial Services Intern Name Role Phone Lolly Oliveira MD Primary Care Provider [phone] Reason for Visit * Reason Comments Follow-up Encounter Details Date Type Department Care Team (Late st Contact Info) Description 07/02/2022 8:00 AM EDT Office Visit Dermatology at [address] [phone] Clay Ramírez MD [address] [facility] [place] [address] Psoriasis, guttate Social History Tobacco Use Types [...] [facility] Hospital Encounter Non-[place] [phone] Arrived documented as of this encounter Visit Diagnoses Diagnosis Psoriasis, guttate Other psoriasis documented in this encounter Care Teams Financial Services Intern Relationship Specialty Start Date End Date Lolly Oliveira MD [address] [place] [address] PCP - General 07/17/13 documented as of this encounter
--- OUTSIDE RECORDS SUMMARY | 2024-02-18 11:26 | XMS_ITS | Encounter Summary ---
[place] [address] Care Team Providers Care Asphalt Smoother Name Role Phone Lolly Oliveira MD Primary Care Provider [phone] Encounter Details Date Type Department Care Team [...] filedocumented in this encounter Care Teams Asphalt Smoother Relationship Specialty Start Date End Date Lolly Oliveira MD [address] [place] [address] PCP - General 07/17/13 documented as of this encounter
--- OUTSIDE RECORDS SUMMARY | 2024-02-18 11:26 | XMS_ITS | Encounter Summary ---
[place] [address] Care Team Providers Care Glass Bender Name Role Phone Lolly Oliveira MD Primary Care Provider [phone] Encounter Details Date Type Department Care Team [...] AM EST Hospital Encounter Non-Invasive [place] [address] Arrived documented as of this encounter Visit Diagnoses Not on filedocumented in this encounter Care Teams Glass Bender Relationship Specialty Start Date End Date Lolly Oliveira MD [address] [place] [address] PCP - General 07/17/13 documented as of this encounter
--- OUTSIDE RECORDS SUMMARY | 2024-02-18 11:26 | XMS_ITS | Encounter Summary ---
Author Organization [facility] [place] [address] Care Team Providers Care Exercise Equipment Repair Technician Name Role Phone Lolly Oliveira MD Primary Care Provider [phone] Reason for Visit * Reason Comments Follow-up Encounter Details Date Type Department Care Team (Late st Contact Info) Description 05/21/2022 8:00 AM EDT Office Visit Dermatology at [address] [phone] Clay Ramírez MD [address] [facility] [place] [address] Psoriasis, guttate Social History Tobacco Use Types [...] [facility] Non-Invasive [place] [address] Arrived documented as of this encounter Visit Diagnoses Diagnosis Psoriasis, guttate Other psoriasis documented in this encounter Care Teams Exercise Equipment Repair Technician Relationship Specialty Start Date End Date Lolly Oliveira MD [address] [place] [address] PCP - General 07/17/13 documented as of this encounter
--- OUTSIDE RECORDS SUMMARY | 2024-02-18 11:26 | XMS_ITS | Encounter Summary ---
Author Organization [facility] Address [facility] [place] [address] Care Team Providers Care Literature Teacher Name Role Phone Lolly Oliveira MD Primary Care Provider [phone] Reason for Visit * Auth/Cert (Routine) Specialty Diagnoses / Procedures Referred By Contac t Referred To Contact Diagnoses Left bundle-branch block, unspecified Other cardiomyopathies Left bundle branch block [I44.7]Nonischemic cardiomyopathy [I42.8] Procedures PRG CATH PLMT LEFT HEART CATH & ARTS W/INJ & ANGIO IMG S&I ELECTROPHYSIOLOGY PROCEDURE Lalit Mcmahon MD [facility] [place] [address] [facility] Referral ID Status Reason Start Date Expiration Date Visits Re quested Visits Authorized [id number] 1 1 Encounter Details Date Type Department Care Team (Latest Contact Info) Description 07/23/2022 11:39 AM EDT - 07/24/2022 10:23 AM EDT Hospital [place] [id number] Lalit Mcmahon MD [facility] [place] [address] Left bundle branch block; Nonischemic cardiomyopathy; Cardiac resynchronization therapy defibrillator (CLINICAL NUTRITIONIST-D) in place Discharge Disposition: Home Social History [...] Luna Mott Patient Age: 71 y.o. Language: Bahamian Race: White Ethnicity: Not nor Admit date: 07/23/2022 Discharge date and time: 07/24/22 Attending Physician: Lalit Mcmahon MD Discharge Physician: Lalit Mcmahon MD Follow-up Recommendations for Providers: - s/p CLINICAL NUTRITIONIST-D implant - post implant QRS 130 ms [...] Solar lentigo Operations/Major Procedures: 07/23/22: [facility] CLINICAL NUTRITIONIST-D implant History of Presentation: 71 y.o. female with a history of HFrEF, LBBB, QRS >150, NYHA II who is POD#1 of CLINICAL NUTRITIONIST-D implant ([employer]). Hospital Course: Elective admission for CLINICAL NUTRITIONIST-D implant Admitted post-implant for pain management, telemetry [...] failure with reduced ejection fraction) [I50.20] CLINICAL NUTRITIONIST-D implant Admission Condition: good Indication for Admission: [...] g Refills: 3 fluticasone propionate 50 mcg/actuation Eagle, Suspension Commonly known as: Flonase 1 spray [...] incision. Make sure to use a cloth designer (such as a towel) in between the [...] F. The office scheduling phone number is [phone]. ARM MOVEMENT RESTRICTIONS POST-IMPLANT - Do not [...] please call the Cardiac ElectrophysiologyTriage Nurse at [phone], option 3. General Instructions None Discharge References/Attachments [...] incision. Make sure to use a cloth designer (such as a towel) in between the [...] F. The office scheduling phone number is [phone]. ARM MOVEMENT RESTRICTIONS POST-IMPLANT - Do not [...] please call the Cardiac ElectrophysiologyTriage Nurse at [phone], option 3. documented in this encounter Medications [...] with spacer fluticasone propionate (Flonase) 50 mcg/actuation Eagle, Suspension 1 spray by Each Nare route [...] Cardiac Electrophysiology Post-Implant Device Interrogation Luna Mott [id number] 07/24/2022 History: Luna Mott is a 71 y.o. female with a history of HFrEF, LBBB, QRS >150, NYHA II who is POD#1 of CLINICAL NUTRITIONIST-D implant ([employer]). Overall feels well this morning. Ready [...] WOB Neuro- A&Ox3 Device Interrogation: Data ?? Employee Benefits Director Model # Serial # Generator [employer] [id number] Atrial Lead [employer] [id number] RV Lead [employer] 0672 [id number] LV Lead [employer] [id number] ?? Diagnostics Pacing Mode: DDD 60-130 Underlying Rhythm: Ailey Atrial Episodes: None Ventricular Episodes: None FINAL PROGRAMMING: Pacing: Mode Lower rate (ppm) Upper rate (ppm) ?? DDD 60 130 VF: Rate (bpm) #Antitachycardia pacing First shock energy (J) ?? 200 Quick convert 41 VT: 170 Monitor only Monitor only ? Battery and Leads Impedances (ohms) Sensing (mV) Thresholds HV RA RV LV RA RV LV RA RV LV 73 116 090 7732 (LVa) 7.7 13.1 >25 0.4V @ 0.4 ms 0.4V @ 0.4 ms 0.5 V @ 1.0 ms POD#1 CXR: All leads in nominal positioning Impression: 71 y.o. female who is s/p CLINICAL NUTRITIONIST-D implant for LBBB, NYHA II, HFrEF. - [...] [facility]) Fadi Nunez MD 07/24/2022 Pager: [phone] I met with the patient today and [...] agreement. ? Dr. Lalit Mcmahon, electrophysiology attending ([id number]) * Zaria Wright RN - 07/23/2022 8:28 [...] QRS > 150 ms presents for CLINICAL NUTRITIONIST-D placement. ROS: Denies recent fevers or chills [...] 0.9) flush 5 mL 5 mL Intravenous [id number] ramos MD ??? sodium chloride 0.9 % [...] QRS > 150 ms presents for CLINICAL NUTRITIONIST-D placement. Backup would be LBBAP lead. Antibiotics: cefazolin Rationales for, intended benefits and potential risk of planned procedures reviewed. The patient indicated understanding and agreement with the plan. Informed consent signed. Procedure checklist completed. Fadi Nunez MD Cardiac Electrophysiology Fellow [facility] Pager [phone] 07/23/2022 I met with the patient today [...] agreement. ? Dr. Lalit Mcmahon, electrophysiology attending ([id number]) documented in this encounter Miscellaneous Notes * Brief Op Note - Lalit Mcmahon MD - 07/23/2022 4:04 PM EDT Brief Operative Note Patient Name: Luna Mott : [id number] MR#: [id number] Case Date: 07/23/2022 Surgeon: Surgeon(s) and Role: [...] AM EST Hospital Encounter [place] [address] Arrived Scheduled Orders Name Type Priority Associated Diagnoses Orde r Schedule EKG 12 Lead ECG Routine Cardiac resynchronization therapy defibrillator (CLINICAL NUTRITIONIST-D) in place One Time for 1 Occurrences [...] (Bezet) 522 ms MUSE SYSTEM Calculated R [place] 78 degrees MUSE SYSTEM Calculated T [place] -71 degrees MUSE SYSTEM INTERPRETATION AV dual-paced [...] result was not included. BIVENTRICULAR ICD IMPLANTATION Operations Management Professionals: Lalit Mcmahon MD Fellow: Fadi Nunez MD [...] the entire procedure. LEAD AND GENERATOR DATA: Employee Benefits Director Model # Serial # Generator [employer] [id number] Atrial Lead [employer] [id number] RV Lead [employer] 0672 538851 LV Lead [employer] [id number] PACE/SENSE DATA: Sensed wave (mV) Threshold (V) [...] (cGycm2) 300 CONCLUSIONS: Successful implantation of a [employer] biventricular ICD for primary prevention and treatment of symptoms related to congestive heart failure. Follow up in EP clinic in 1-2 months. Procedures performed: new ICD system ( cpt 86655-Y1); implant LV lead at time of ICD insertion (cpt 02842) I have read, edited and approve of this report: Lalit Mcmahon MD S Cardiac Electrophysiology 07/23/2022 4:22 PM Procedure Note Lalit Mcmahon MD - 07/23/2022 BIVENTRICULAR ICD IMPLANTATION Operations Management Professionals: Lalit Mcmahon MD Fellow: aFdi Nunez MD Referring physician: Zamzam Boss MD [...] in the entireprocedure. LEAD AND GENERATOR DATA: Employee Benefits Director Model # Serial # Generator [employer] [id number] Atrial Lead [employer] 7841 [id number] RV Lead [employer] 0672 030704 LV Lead [employer] 4674 [id number] PACE/SENSE DATA: Sensed wave (mV) Threshold (V) [...] (cGycm2) 300 CONCLUSIONS: Successful implantation of a [employer] biventricular ICD forprimary prevention and treatment of symptoms related to congestive heartfailure. Follow up in EP clinic in 1-2 months. Procedures performed: new ICD system ( cpt 79241-J6); implant LV lead attime of ICD insertion (cpt 01659) I have read, edited and approve of [...] CARE TEST O RDERABLES Performing Organization Address [facility] Co de Phone Number [facility] [place] [address] * EKG 12 Lead (07/23/2022 12:33 PM EDT) Ventricular rate 72 BPM MUSE SYSTEM Atrial Rate 72 BPM MUSE SYSTEM P-R Interval 158 ms MUSE SYSTEM QRS Duration 176 ms MUSE SYSTEM Q-T Interval 458 ms MUSE SYSTEM QTC Calculated (Bezet) 501 ms MUSE SYSTEM Calculated P [place] 34 degrees MUSE SYSTEM Calculated R [place] 12 degrees MUSE SYSTEM Calculated T [place] -173 degrees MUSE SYSTEM INTERPRETATION Normal sinus rhythm Left bundle branch block Abnormal ECG No previous ECGs available Confirmed by MD Salome, Lalit ([id number]) on 07/23/2022 1:19:03 PM MUSE SYSTEM 07/23/2022 12:3 3 PM EDT 07/23/2022 1:19 PM EDT Lalit Mcmahon MD ECG ORDERABLES Performing Organization Address [facility] de Phone Number MUSE SYSTEM * Differential, Automated (07/23/2022 11:55 AM EDT) Neutrophil % 62.6 % [facility] Neutrophil Absolute 4.14 1.70 - 6.10 x10(3)/[facility] LABORATORY Lymph % 27.0 % [facility] Lymphocytes Abs 1.8 0.9 - 3.2 x10(3)/[facility] LABORATORY Monocyte % 7.3 % [facility] Monocyte Abs 0.5 0.3 - 0.9 x10(3)/[facility] LABORATORY Eos % 2.3 % [facility] Eosinophils Abs 0.2 0.0 - 0.4 x10(3)/[facility] LABORATORY Basophil % 0.6 % [facility] ITAL LABORATORY Baso Absolute 0.0 0.0 [...] HEMATOLOGY ORDERABLE S [facility] [place] [address] * Hemogram (07/23/2022 11:55 AM EDT) White [...] [facility] NRBC% auto 0.0 % [facility] NRBC Absolute 0.000 0.000 - 0.000 x10(3)/mcL [facility] Blood 07/23/2022 11:5 5 AM EDT 07/23/2022 12:07 PM EDT Narrative Resulting Agency Comment Spec In Lab Lalit Mcmahon MD HEMATOLOGY ORDERABLE S [facility] [address] [facility] [place] [address] * (ABNORMAL) BMP w/fasting Glucose (07/23/2022 11:55 [...] of Diabetes Mellitus, Position Statement from the [place] [employer]. ??Diabetes Care, Volume 33, Supplement [...] CHEMISTRY ORDERABLES Performing Organization Address [facility] Co de Phone Number [facility] [place] [address] * Prothrombin Time (07/23/2022 11:55 AM EDT) [...] MD HEMATOLOGY ORDERABLE S Performing Organization Address City/[facility] Co de Phone Number [facility] [place] [address] documented in this encounter Visit Diagnoses Diagnosis HFrEF (heart failure with reduced ejection fraction)- Primary Left bundle branch block Other left bundle branch block Nonischemic cardiomyopathy Other primary cardiomyopathies Cardiac resynchronization therapy defibrillator (CLINICAL NUTRITIONIST-D) in place Left bundle branch block Other [...] Routine documented in this encounter Care Teams Literature Teacher Relationship Specialty Start Date End Date Lolly Oliveira MD [address] [place] [address] PCP - General 07/17/13 documented as of this encounter
--- OUTSIDE RECORDS SUMMARY | 2024-02-18 11:26 | XMS_ITS | Encounter Summary ---
Author Organization [facility] [place] [address] Care Team Providers Care Police Worker Name Role Phone Lolly Oliveira MD Primary Care Provider [phone] Encounter Details Date Type Department Care Team (Late st Contact Info) Description 03/15/2023 Telephone Cardiology at [address] [phone] Saranya Ma Social History Tobacco Use Types [...] to have an echo done at [facility] prior to her appt withtxm there on 05/12/23. Message sent to Dr. Mcmahon asking him to put order in if he would like her to have this done. Saranya Ma Sr. Clinical Procedure Narrow Fabrics Weaver/Surveillance Investigator documented in this encounter Plan of Treatment Upcoming Encounters Date Type Department Care Team (Late st Contact Info) Description 04/15/2024 10:00 AM EST Hospital Encounter [place] [address] Arrived documented as of this encounter Visit Diagnoses Not on filedocumented in this encounter Care Teams Police Worker Relationship Specialty Start Date End Date Lolly Oliveira MD [address] [place] [address] PCP - General 07/17/13 documented as of this encounter
--- OUTSIDE RECORDS SUMMARY | 2024-02-18 11:26 | XMS_ITS | Encounter Summary ---
Author Organization [facility] Address [place] [address] Care Team Providers Care Clinical Counselor Name Role Phone Lolly Oliveira MD Primary Care Provider [phone] Encounter Details Date Type Department Care Team (Late st Contact Info) Description 03/15/2023 Orders Only Cardiology at [address] [phone] Lalit Mcmahon MD [facility] [address] Nonischemic cardiomyopathy; Biventricular ICD (implantable cardioverter-defibrill ator) [...] place documented in this encounter Care Teams Clinical Counselor Relationship Specialty Start Date End Date Lolly Oliveira MD [address] [place] [address] PCP - General 07/17/13 documented as of this encounter
--- OUTSIDE RECORDS SUMMARY | 2024-02-18 11:26 | XMS_ITS | Encounter Summary ---
Author Organization [facility] Address [facility] [place] [address] Care Team Providers Care Car Stereo Installer Name Role Phone Lolly Oliveira MD Primary Care Provider [phone] Encounter Details Date Type Department Care Team (Late st Contact Info) Description 11/11/2022 Orders Only Cardiology at [address] [phone] Lalit Mcmahon MD [facility] [place] [address] Nonischemic cardiomyopathy Social History Tobacco Use Types [...] Info) Description 04/15/2024 10:00 AM [facility] Hospital Encounter [place] [phone] Arrived documented as of this encounter Visit Diagnoses Diagnosis Nonischemic cardiomyopathy Other primary cardiomyopathies documented in this encounter Care Teams Car Stereo Installer Relationship Specialty Start Date End Date Berrian, Lolly M, MD [address] [place] [address] PCP - General 07/17/13 documented as of this encounter
--- OUTSIDE RECORDS SUMMARY | 2024-02-18 11:26 | XMS_ITS | Encounter Summary ---
Author Organization [facility] [place] [address] Care Team Providers Care Proof Coin Collector Name Role Phone Lolly Oliveira MD Primary Care Provider [phone] Encounter Details Date Type Department Care Team (Latest Contact Info) Description 07/20/2023 10:00 AM EDT - 07/20/2023 11:59 PM EDT Hospital Encounter [place] [phone] Discharge Disposition: Home Social History Tobacco Use [...] with spacer fluticasone propionate (Flonase) 50 mcg/actuation [place], Suspension 1 spray by Each Nare route daily as needed. documented as of this encounter Plan of Treatment Upcoming Encounters Date Type Department Care Team (Late st Contact Info) Description 04/15/2024 10:00 AM EST Hospital Encounter [place] [address] Arrived documented as of this encounter Procedures [...] on filedocumented in this encounter Care Teams Proof Coin Collector Relationship Specialty Start Date End Date Lolly Oliveira MD [address] [place] [address] PCP - General 07/17/13 documented as of this encounter
--- OUTSIDE RECORDS SUMMARY | 2024-02-18 11:26 | XMS_ITS | Encounter Summary ---
[place] [address] Care Team Providers Care Radiologic Technician Name Role Phone Lolly Oliveira MD Primary Care Provider [phone] Encounter Details Date Type Department Care Team (Late st Contact Info) Description 04/09/2022 Refill Dermatology at [address] [address] Nora Meredith, FIREPERSON Social History Tobacco Use Types Packs/Day Years [...] AM [facility] Hospital Encounter Non-Invasive [place] [address] Arrived documented as of this encounter Visit Diagnoses Not on filedocumented in this encounter Care Teams Radiologic Technician Relationship Specialty Start Date End Date Lolly Oliveira MD [address] [place] [address] PCP - General 07/17/13 documented as of this encounter
--- OUTSIDE RECORDS SUMMARY | 2024-02-18 11:26 | XMS_ITS | Encounter Summary ---
Author Organization [facility] [place] [address] Care Team Providers Care Pricing Coordinator Name Role Phone Lolly Oliveira MD Primary Care Provider [phone] Reason for Visit * Auth/Cert (Routine) Specialty Diagnoses / Procedures Referred By Contac t Referred To Contact Diagnoses Left bundle-branch block, unspecified Other cardiomyopathies Left bundle branch block [I44.7]Nonischemic cardiomyopathy [I42.8] Procedures PRG CATH PLMT LEFT HEART CATH & ARTS W/INJ & ANGIO IMG S&I ELECTROPHYSIOLOGY PROCEDURE Lalit Mcmahon MD [facility] [place] [address] RUST Referral ID Status Reason Start Date Expiration Date Visits Re quested Visits Authorized [id number] 1 1 Encounter Details Date Type Department Care Team (Late st Contact Info) Description 07/23/2022 1:00 PM EDT - 07/23/2022 5:30 PM EDT Surgery [place] [address] Lalit Mcmahon MD [facility] [place] [address] ELECTROPHYSIOLOGY PROCEDURE Social History Tobacco Use Types [...] Luna Mott Patient Age: 71 y.o. Language: Sinhala Race: White Ethnicity: Not nor Admit date: 07/23/2022 Discharge date and time: 07/24/22 Attending Physician: Lalit Mcmahon MD Discharge Physician: Lalit Mcmahon MD Follow-up Recommendations for Providers: - s/p CHEF MANAGER-D implant - post implant QRS 130 [...] Solar lentigo Operations/Major Procedures: 07/23/22: [facility] CHEF MANAGER-D implant History of Presentation: 71 y.o. female with a history of HFrEF, LBBB, QRS >150, NYHA II who is POD#1 of CHEF MANAGER-D implant ([employer]). Hospital Course: Elective admission for CHEF MANAGER-D implant Admitted post-implant for pain management, [...] (heart failure with reduced ejection fraction) [I50.20] CHEF MANAGER-D implant Admission Condition: good Indication for [...] g Refills: 3 fluticasone propionate 50 mcg/actuation Verdon, Suspension Commonly known as: Flonase 1 spray [...] incision. Make sure to use a cloth doffer (such as a towel) in between the [...] F. The office scheduling phone number is [phone]. ARM MOVEMENT RESTRICTIONS POST-IMPLANT - Do not [...] please call the Cardiac ElectrophysiologyTriage Nurse at [phone], option 3. General Instructions None Discharge References/Attachments [...] incision. Make sure to use a cloth doffer (such as a towel) in between the [...] F. The office scheduling phone number is [phone]. ARM MOVEMENT RESTRICTIONS POST-IMPLANT - Do not [...] please call the Cardiac ElectrophysiologyTriage Nurse at [phone], option 3. documented in this encounter Medications [...] with spacer fluticasone propionate (Flonase) 50 mcg/actuation Verdon, Suspension 1 spray by Each Nare route [...] Cardiac Electrophysiology Post-Implant Device Interrogation Luna Mott [id number] 07/24/2022 History: Luna Mott is a 71 y.o. female with a history of HFrEF, LBBB, QRS >150, NYHA II who is POD#1 of CHEF MANAGER-D implant ([employer]). Overall feels well this morning. Ready [...] WOB Neuro- A&Ox3 Device Interrogation: Data ?? Senior Brand Manager Model # Serial # Generator [employer] [id number] Atrial Lead [employer] [id number] [id number] RV Lead [employer] 0672 216414 LV Lead [employer] [phone] ?? Diagnostics Pacing Mode: DDD 60-130 Underlying Rhythm: [place] Atrial Episodes: None Ventricular Episodes: None FINAL PROGRAMMING: Pacing: Mode Lower rate (ppm) Upper rate (ppm) ?? DDD 60 130 VF: Rate (bpm) #Antitachycardia pacing First shock energy (J) ?? 200 Quick convert 41 VT: 170 Monitor only Monitor only ? Battery and Leads Impedances (ohms) Sensing (mV) Thresholds HV RA RV LV RA RV LV RA RV LV 73 [phone] (LVa) 7.7 13.1 >25 0.4V @ 0.4 ms 0.4V @ 0.4 ms 0.5 V @ 1.0 ms POD#1 CXR: All leads in nominal positioning Impression: 71 y.o. female who is s/p CHEF MANAGER-D implant for LBBB, NYHA II, HFrEF. [...] [facility]) Fadi Nunez MD 07/24/2022 Pager: [phone] I met with the patient today and [...] agreement. ? Dr. Lalit Mcmahon, electrophysiology attending ([id number]) * Zaria Wright RN - 07/23/2022 8:28 [...] HF, QRS > 150 ms presents for CHEF MANAGER-D placement. ROS: Denies recent fevers or [...] 0.9) flush 5 mL 5 mL Intravenous [id number] ramos MD ??? sodium chloride 0.9 % [...] HF, QRS > 150 ms presents for CHEF MANAGER-D placement. Backup would be LBBAP lead. Antibiotics: cefazolin Rationales for, intended benefits and potential risk of planned procedures reviewed. The patient indicated understanding and agreement with the plan. Informed consent signed. Procedure checklist completed. Fadi Nunez MD Cardiac Electrophysiology Fellow [facility] Pager [phone] 07/23/2022 I met with the patient today [...] agreement. ? Dr. Lalit Mcmahon, electrophysiology attending ([id number]) documented in this encounter Miscellaneous Notes * Brief Op Note - Lalit Mcmahon MD - 07/23/2022 4:04 PM EDT Brief Operative Note Patient Name: Luna Mott : [id number] MR#: [id number] Case Date: 07/23/2022 Surgeon: Surgeon(s) and Role: [...] AM EST Hospital Encounter Non-[place] [address] Arrived Scheduled Orders Name Type Priority Associated Diagnoses Orde r Schedule EKG 12 Lead ECG Routine Cardiac resynchronization therapy defibrillator (CHEF MANAGER-D) in place One Time for 1 [...] (Bezet) 522 ms MUSE SYSTEM Calculated R [place] 78 degrees MUSE SYSTEM Calculated T [place] -71 degrees MUSE SYSTEM INTERPRETATION AV dual-paced [...] have questions please contact the health nurse care manager that requested your imaging first. ? Electronically signed by: Kwame Vargas MD, [facility] ([phone]), at 07/24/2022 6:43 AM Narrative 07/24/2022 6:43 [...] who have questions please contactthe health nurse care manager that requested your imaging first. Electronically signed by: Kwame Vargas MD, [facility]([phone]), at 07/24/2022 6:43 AM Lalit Mcmahon MD IMG DX ORDERABLES * ELECTROPHYSIOLOGY PROCEDURE (07/23/2022 1:11 PM EDT) Anatomical Region Laterality Modality Other Narrative 07/23/2022 4:24 PM EDT Table formatting from the original result was not included. BIVENTRICULAR ICD IMPLANTATION Police Communications Operator: Lalit Mcmahon MD Fellow: Fadi Nunez [...] lateral branch of the CS in the FRISIAN view. This branch was cannulated with a [...] the entire procedure. LEAD AND GENERATOR DATA: Senior Brand Manager Model # Serial # Generator [employer] [id number] Atrial Lead [employer] 7841 [id number] RV Lead [employer] 0672 542118 LV Lead [employer] [id number] [id number] PACE/SENSE DATA: Sensed wave (mV) Threshold (V) [...] (cGycm2) 300 CONCLUSIONS: Successful implantation of a [employer] biventricular ICD for primary prevention and treatment of symptoms related to congestive heart failure. Follow up in EP clinic in 1-2 months. Procedures performed: new ICD system ( cpt 42591-N4); implant LV lead at time of ICD insertion (cpt 80356) I have read, edited and approve of this report: Lalit Mcmahon MD [facility] Cardiac Electrophysiology 07/23/2022 4:22 PM Procedure Note Lalit Mcmahon MD - 07/23/2022 BIVENTRICULAR ICD IMPLANTATION Police Communications Operator: Lalit Mcmahon MD Fellow: Fadi Nunez [...] appropriate lateralbranch of the CS in the FRISIAN view. This branch was cannulated with a [...] in the entireprocedure. LEAD AND GENERATOR DATA: Senior Brand Manager Model # Serial # Generator [employer] [id number] Atrial Lead [employer] 7841 [id number] RV Lead [employer] 0672 974192 LV Lead [employer] [id number] [id number] PACE/SENSE DATA: Sensed wave (mV) Threshold (V) [...] (cGycm2) 300 CONCLUSIONS: Successful implantation of a [employer] biventricular ICD forprimary prevention and treatment of symptoms related to congestive heartfailure. Follow up in EP clinic in 1-2 months. Procedures performed: new ICD system ( cpt 04943-L7); implant LV lead attime of ICD insertion (cpt 30464) I have read, edited and approve of this report: Lalit Mcmahon MD S Cardiac Electrophysiology 07/23/2022 4:22 PM Lalit Mcmahon MD EP PROCEDURE ORDERAB LES * POCT Glucose (07/23/2022 12:54 PM EDT) [facility] Signature Glucose, POC 83 65 - 199 mg/dL [facility] Comment: Supplemental ranges: <140 mg/dL before meals <180 mg/dL all other times of the day Blood 07/23/2022 12:5 4 PM EDT 07/23/2022 12:54 PM EDT Lalit Mcmahon MD POINT OF CARE TEST O RDERABLES Performing Organization Address City/[facility]/ZIP Co de Phone Number [facility] [place] [address] * EKG 12 Lead (07/23/2022 12:33 PM EDT) Ventricular rate 72 BPM MUSE SYSTEM Atrial Rate 72 BPM MUSE SYSTEM P-R Interval 158 ms MUSE SYSTEM QRS Duration 176 ms MUSE SYSTEM Q-T Interval 458 ms MUSE SYSTEM QTC Calculated (Bezet) 501 ms MUSE SYSTEM Calculated P [place] 34 degrees MUSE SYSTEM Calculated R [place] 12 degrees MUSE SYSTEM Calculated T [place] -173 degrees MUSE SYSTEM INTERPRETATION Normal sinus rhythm Left bundle branch block Abnormal ECG No previous ECGs available Confirmed by MD Salome, Lalit ([id number]) on 07/23/2022 1:19:03 PM MUSE SYSTEM 07/23/2022 12:3 3 PM EDT 07/23/2022 1:19 PM EDT Lalit Mcmahon MD ECG ORDERABLES Performing Organization Address [facility]/ZIP Co de Phone Number MUSE SYSTEM * Differential, Automated (07/23/2022 11:55 AM EDT) Neutrophil % 62.6 % [facility] Neutrophil Absolute 4.14 1.70 - 6.10 x10(3)/[facility] Lymph % 27.0 % [facility] Lymphocytes Abs 1.8 0.9 - 3.2 x10(3)/[facility] Monocyte % 7.3 % [facility] Monocyte Abs 0.5 0.3 - 0.9 x10(3)/[facility] Eos % 2.3 % [facility] Eosinophils Abs 0.2 0.0 - 0.4 x10(3)/[facility] LAB[facility] Basophil % 0.6 % [facility] Baso Absolute 0.0 0.0 - 0.1 x10(3)/[facility] Immature Gran % 0.20 % [facility] Comment: Immature granulocytes(IG's)percentage and absolute count will include metamyelocytes, myelocytes, and promyelocytes. Blood smears from CBCs yielding IG's will be scanned manually for concordance. If this scan disagrees with the automated IG or if promyelocytes are noted, a manual differential will be performed. Immature Gran Absolute 0.01 0.00 - 0.04 x10(3)/[facility] Blood 07/23/2022 11:5 5 AM EDT 07/23/2022 12:07 PM EDT Narrative Resulting Agency Comment Spec In Lab Lalit Mcmahon MD HEMATOLOGY ORDERABLE S [facility] [place] [address] * Hemogram (07/23/2022 11:55 AM EDT) White Blood Cell 6.6 4.0 - 9.5 x10(3)/[facility] Red Blood Cell 4.50 4.00 - 5.21 x10(6)/[facility] Hemoglobin 13.7 11.7 - 15.5 g/dL [facility] Hematocrit 42.5 35.7 - 45.8 % [facility] Mean Cell Volume 94.4 82.6 - 94.4 fL [facility] Mean Cell Hemoglobin 30.4 27.1 - 32.0 pg [facility] Mean Cell Hemoglobin Concentration 32.2 31.7 - 35.0 g/dL [facility] Platelet 193 145 - 357 x10(3)/[facility] RDW Standard Deviation 45.5 37.0 - 46.0 fL [facility] RDW coefficient of variation 13.2 11.5 - 14.1 % [facility] Mean Platelet Volume 9.5 7.6 - 12.9 fL [facility] NRBC% auto 0.0 % [facility] ITAL LAB[facility] NRBC Absolute 0.000 0.000 - 0.000 x10(3)/[facility] Blood 07/23/2022 11:5 5 AM EDT 07/23/2022 12:07 PM EDT Narrative Resulting Agency Comment Spec In Lab Lalit Mcmahon MD HEMATOLOGY ORDERABLE S [facility] [place] [address] * (ABNORMAL) BMP w/fasting Glucose (07/23/2022 11:55 AM EDT) Glucose Fasting 110(H) 65 - 99 mg/dL [facility] Comment: ?Fasting* Glucose Interpretive Criteria [...] of Diabetes Mellitus, Position Statement from the [place] [employer]. ??Diabetes Care, Volume 33, Supplement 1, Mar 2009 Blood Urea Nitrogen 23(H) 8 - 18 mg/dL [facility] Creatinine 1.07 0.70 - 1.20 mg/dL [facility] Sodium 141 135 - 145 mmol/L [facility] Potassium 4.8 3.5 - 5.0 mmol/L [facility] Comment: Please note: ??Patients with WBC >100,000 may have falsely elevated Potassium levels. ??For accurate Potassium quantification in these patients send serum separator tube (gold top) for subsequent determinations. ??Contact the Clinical Chemistry Laboratory if there are any questions. Chloride 106 98 - 107 mmol/L [facility] Carbon Dioxide 26 22 - 31 mmol/L [facility] Anion Gap 9 5 - 15 mmol/L [facility] Calcium 9.7 8.5 - 10.5 mg/dL [facility] Est Glomerular Filtration Rate 55(L) >=60 mL/min/1. 73 m?? [facility] Comment: This patient's [...] MD CHEMISTRY ORDERABLES Performing Organization Address [facility] Co de Phone Number [facility] [place] [address] * Prothrombin Time (07/23/2022 11:55 AM EDT) Prothrombin Time 11.7 9.4 - 12.5 sec [facility] International Normalization Ratio 1.0 [facility] Comment: An INR <2.0 indicates [...] HEMATOLOGY ORDERABLE S Performing Organization Address City/[facility] Co de Phone Number [facility] [place] [address] documented in this encounter Visit Diagnoses Diagnosis HFrEF (heart failure with reduced ejection fraction)- Primary Left bundle branch block Other left bundle branch block Nonischemic cardiomyopathy Other primary cardiomyopathies Cardiac resynchronization therapy defibrillator (CHEF MANAGER-D) in place Left bundle branch block [...] Routine documented in this encounter Care Teams Pricing Coordinator Relationship Specialty Start Date End Date Lolly Oliveira MD [address] [place] [address] PCP - General 07/17/13 documented as of this encounter
--- OUTSIDE RECORDS SUMMARY | 2024-02-18 11:26 | XMS_ITS | Encounter Summary ---
[place] [address] Care Team Providers Care Project Manager Entertainment And Media Name Role Phone Lolly Oliveira MD Primary Care Provider [phone] Encounter Details Date Type Department Care Team [...] AM EST Hospital Encounter Non-Invasive [place] [address] Arrived documented as of this encounter Visit Diagnoses Not on filedocumented in this encounter Care Teams Project Manager Entertainment And Media Relationship Specialty Start Date End Date Lolly Oliveira MD [address] [place] [address] PCP - General 07/17/13 documented as of this encounter
--- OUTSIDE RECORDS SUMMARY | 2024-02-18 11:26 | XMS_ITS | Encounter Summary ---
Author Organization [facility] [place] [address] Care Team Providers Care System Dispatcher Name Role Phone Lolly Oliveira MD Primary Care Provider [phone] Reason for Visit * Reason Onset Date Comments Post Procedure Call 07/30/2022 Encounter Details Date Type Department Care Team (Late st Contact Info) Description 07/30/2022 Notes Only Cardiology at [address] [id number] Rosenda Sutton, RN Post Procedure Call Social [...] 07/30/2022 9:59 AM EDTSummary: Post Procedure Call: SALES OPERATIONS LEAD implant EP RN Post-Procedure Note: Date of [...] Note: Follow-up Recommendations for Providers: - s/p SALES OPERATIONS LEAD-D implant - post implant QRS 130 ms - reviewed post-implant instructions - no medication changes - Follow up in device clinic for wound/device check in ~10 days??([facility]) Wound Care: -Wound will heal [...] [facility] Non-Invasive [place] [address] Arrived documented as of this encounter Visit Diagnoses Not on filedocumented in this encounter Care Teams System Dispatcher Relationship Specialty Start Date End Date Lolly Oliveira MD [address] [place] [address] PCP - General 07/17/13 documented as of this encounter
--- OUTSIDE RECORDS SUMMARY | 2024-02-18 11:26 | XMS_ITS | Encounter Summary ---
Author Organization [facility] [place] [address] Care Team Providers Care Motorcycle Technician Name Role Phone Lolly Oliveira MD Primary Care Provider [phone] Reason for Referral * Consultation (Routine) - Closed Specialty Diagnoses / Procedures Referred By Contact Referred To Contact Electrophysiology / Cardiology Diagnoses Left bundle branch block Cardiomyopathy, unspecified type AT MINIMUM PT NEEDS CONSIDERATION FOR DEFIBRILLATOR, ALSO CANDIDATE FOR RESYNCHRONIZATION THERAPY HER QRS IS >0.16 Lolly Oliveira MD [address] [place] [address] [facility] Cardiology [address] [place] [id number] Referral ID Status Reason Start Date Expiration Date V isits Requested Visits Authorized [id number] Closed Consult, Test & Treat PCP Updated and/or Approved 04/30/2022 04/30/2023 6 6 Encounter Details Date Type Department Care Team (Latest Contact Info) Description 04/30/2022 Transcribe Orders eDH Incoming Referrals [phone] Lolly Oliveira MD [address] [place], [place] [id number] Left bundle branch block; Cardiomyopathy, unspecified type [...] AM EST Hospital Encounter Non-Invasive [place] [address] Arrived Scheduled Referrals Name Type Priority Associated Diagnoses Orde r Schedule Referral to Cardiology Outpatient Referral Routine Left bundle branch block Cardiomyopathy, Unspecified Type Ordered: 04/30/2022 documented as of this encounter Visit Diagnoses Diagnosis Left bundle branch block Other left bundle branch block Cardiomyopathy, unspecified type documented in this encounter Care Teams Motorcycle Technician Relationship Specialty Start Date End Date Lolly Oliveira MD [address] [place] [address] PCP - General 07/17/13 documented as of this encounter
--- OUTSIDE RECORDS SUMMARY | 2024-02-18 11:26 | XMS_ITS | Encounter Summary ---
Author Organization [facility] [place] [address] Care Team Providers Care Radio Intelligence Operator Name Role Phone Lolly Oliveira MD Primary Care Provider [phone] Encounter Details Date Type Department Care Team (Late st Contact Info) Description 07/26/2013 [place] [phone] Eleno Christian MD [facility] DIAGNOSTIC [place] [address] Social History Tobacco Use Types Packs/Day Years [...] AM EST Hospital Encounter Non-Invasive [place] [address] Arrived documented as of this encounter Visit Diagnoses Not on filedocumented in this encounter Care Teams Radio Intelligence Operator Relationship Specialty Start Date End Date Lolly Oliveira MD [address] [place] [address] PCP - General 07/17/13 documented as of this encounter
--- OUTSIDE RECORDS SUMMARY | 2024-02-18 11:26 | XMS_ITS | Encounter Summary ---
Author Organization [facility] [place] [address] Care Team Providers Care Environmental Health Technologist Name Role Phone Lolly Oliveira MD Primary Care Provider [phone] Reason for Visit * Reason Comments Follow-up 8 weeks UVB treatmen t twice weekly Encounter Details Date Type Department Care Team (Late st Contact Info) Description 07/19/2023 11:00 AM EDT Office Visit Dermatology at [address] [id number] Clay Ramírez MD [address], [facility] A DERMATOLOGY [place], [place] [id number] Psoriasis Social History Tobacco Use Types Packs/Day [...] [facility] Hospital Encounter Non-Invasive [place] [address] Arrived documented as of this encounter Visit Diagnoses Diagnosis Psoriasis Other psoriasis documented in this encounter Care Teams Environmental Health Technologist Relationship Specialty Start Date End Date Lolly Oliveira MD [address] [place] [address] PCP - General 07/17/13 documented as of this encounter
--- OUTSIDE RECORDS SUMMARY | 2024-02-18 11:26 | XMS_ITS | Encounter Summary ---
Author Organization [facility] [place] [address] Care Team Providers Care Mastic Worker Name Role Phone Lolly Oliveira MD Primary Care Provider [phone] Reason for Visit * Diagnostic Test (Routine) - Closed Specialty Diagnoses / Procedures Referred By Contac t Referred To Contact Radiology Diagnoses Left bundle branch block Nonischemic cardiomyopathy Procedures MRI Cardiac Morphology Function With Flow Velocity Quantification wwo Contrast MRI Cardiac Morphology Function wwo Contrast Lalit Mcmahon MD [facility] [place] [address] [facility] [place] [address] Referral ID Status Reason Start Date Expiration Date V isits Requested Visits Authorized [id number] Closed Specialty Service Requested 05/06/2022 11/07/2023 2 1 Encounter Details Date Type Department Care Team (Latest Contact Info) Description 07/14/2022 9:09 AM EDT - 07/14/2022 11:59 PM EDT Hospital [place] [address] Lalit Mcmahon MD [facility] [address] Discharge Disposition: Home Social History Tobacco Use [...] with spacer fluticasone propionate (Flonase) 50 mcg/actuation [place], Suspension 1 spray by Each Nare route [...] AM EST Hospital Encounter Non[place] [address] Arrived documented as of this [...] mLs documented in this encounter Care Teams Mastic Worker Relationship Specialty Start Date End Date Lolly Oliveira MD [address] [place] [address] PCP - General 07/17/13 documented as of this encounter
--- OUTSIDE RECORDS SUMMARY | 2024-02-18 11:26 | XMS_ITS | Encounter Summary ---
Author Organization [facility] [place] [address] Care Team Providers Care Tie In Machine Operator Name Role Phone Lolly Oliveira MD Primary Care Provider [phone] Reason for Visit * Reason Comments Psoriasis Encounter Details Date Type Department Care Team (Late st Contact Info) Description 04/09/2022 1:45 PM EST Office Visit Dermatology at [address] [address] Clay Ramírez MD [address], [place] [address] Psoriasis, guttate Social History Tobacco Use Types [...] AM EST Hospital Encounter Non-Invasive [place] [address] Arrived documented as of this encounter Visit Diagnoses Diagnosis Psoriasis, guttate Other psoriasis documented in this encounter Care Teams Tie In Machine Operator Relationship Specialty Start Date End Date Lolly Oliveira MD [address] [place] [address] PCP - General 07/17/13 documented as of this encounter
--- OUTSIDE RECORDS SUMMARY | 2024-02-18 11:26 | XMS_ITS | Encounter Summary ---
Author Organization [facility] [place] [address] Care Team Providers Care Application Services Manager Name Role Phone Lolly Oliveira MD Primary Care Provider [phone] Encounter Details Date Type Department Care Team (Late st Contact Info) Description 05/18/2023 Refill Dermatology at [address] [address] Nora Meredith LPN Social History [...] EST Hospital Encounter Non-Invasive [place] [address] Arrived documented as of this encounter Visit Diagnoses Not on filedocumented in this encounter Care Teams Application Services Manager Relationship Specialty Start Date End Date Lolly Oliveira MD [address] [place] [address] PCP - General 07/17/13 documented as of this encounter
--- OUTSIDE RECORDS SUMMARY | 2024-02-18 11:26 | XMS_ITS | Encounter Summary ---
Author Organization [place] [address] Care Team Providers Care Flat Surfacer Jewel Name Role Phone Lolly Oliveira MD Primary Care Provider [phone] Reason for Visit * Reason Onset Date Comments Pre Procedure Call 07/01/2022 Encounter Details Date Type Department Care Team (Late st Contact Info) Description 07/01/2022 Telephone Cardiology at [address] [phone] Rosenda Sutton RN Pre Procedure Call Social History Tobacco Use Types Packs/Day Years Used Date Smoking Tobacco: Never Sex and Gender Information Value Date Recorded Sex Assigned at Not on file Gender Identity Not on file Sexual Orientation Not on file documented as of this encounter Miscellaneous Notes * Telephone Encounter - Rosenda Sutton RN - 07/01/2022 9:30 AM EDTSummary: Pre Procedure Call: METAL FINISH INSPECTOR implant EP INFLATABLE BUILDINGS LAMINATOR COORDINATION CHECKLIST Patient Name: Luna Mott Patient Performing Manager Programs: Lalit Mcmahon Referring Provider: Lolly Oliveira Date of Procedure: 07/23/22 Arrival Time/ Case Time: 12:00 pm / 1:00 pm Check In Location: Lead Quality Control Technician Desk 4W Date Patient was Called: 07/01/22 Procedure: METAL FINISH INSPECTOR Company: [employer] Type: METAL FINISH INSPECTOR-D Laterality: LEFT Orders: Yes Lab Orders: Yes [...] overnight , understands that they will need helper driver on day of discharge Notified pt that Goff catheter may be placed on day of procedure depending on type & duration of case. documented in this encounter Plan of Treatment Upcoming Encounters Date Type Department Care Team (Late st Contact Info) Description 04/15/2024 10:00 AM [facility] Hospital Encounter [place] [address] Arrived documented as of this encounter Visit Diagnoses Not on filedocumented in this encounter Care Teams Flat Surfacer Jewel Relationship Specialty Start Date End Date Lolly Oliveira MD [address] [place] [address] PCP - General 07/17/13 documented as of this encounter
--- OUTSIDE RECORDS SUMMARY | 2024-02-18 11:26 | XMS_ITS | Encounter Summary ---
Author Organization [facility] Address [place] [address] Care Team Providers Care Supervisor Trust Accounts Name Role Phone Lolly Oliveira MD Primary Care Provider [phone] Encounter Details Date Type Department Care Team (Late st Contact Info) Description 01/29/2023 Notes Only Cardiology at [address] [address] Merle Lin PA [facility] [place] [address] Social History Tobacco Use Types Packs/Day Years [...] pdf document Date of transmission: 01/29/2023 Device chief design engineer: BSI Device type: TAPE WEAVER-D Presenting rhythm: /RVP/LVP AP 21% Right AIRCRAFT ENGINE TECHNICIAN 100% Left AIRCRAFT ENGINE TECHNICIAN: 100% Battery: 10.5 years HeartLogic Index rising in setting of increasing S3 intensity, increasing respiratory rate, increasing night heart rate, and increasing mean heart rate. MICKEY Villa 01/29/2023 9:06 AM documented in this encounter Plan of Treatment Upcoming Encounters Date Type Department Care Team (Late st Contact Info) Description 04/15/2024 10:00 AM EST Hospital Encounter Non-[place] [address] Arrived documented as of this encounter Visit Diagnoses Not on filedocumented in this encounter Care Teams Supervisor Trust Accounts Relationship Specialty Start Date End Date Lolly Oliveira MD [address] [place] [address] PCP - General 07/17/13 documented as of this encounter
--- OUTSIDE RECORDS SUMMARY | 2024-02-18 11:26 | XMS_ITS | Encounter Summary ---
Author Organization [facility] [place] [address] Care Team Providers Care Color Expert Name Role Phone Lolly Oliveira MD Primary Care Provider [phone] Encounter Details Date Type Department Care Team [...] AM EST Hospital Encounter Non-Invasive [place] [address] Arrived documented as of this encounter Visit Diagnoses Not on filedocumented in this encounter Care Teams Color Expert Relationship Specialty Start Date End Date Lolly Oliveira MD [address] [place] [address] PCP - General 07/17/13 documented as of this encounter
--- OUTSIDE RECORDS SUMMARY | 2024-02-18 11:26 | XMS_ITS | Encounter Summary ---
Author Organization [facility] [place] [address] Care Team Providers Care Toe Trimmer Name Role Phone Lolly Oliveira MD Primary Care Provider [phone] Encounter Details Date Type Department Care Team (Latest Contact Info) Description 01/21/2023 10:00 AM EST - 01/21/2023 11:59 PM EST Hospital Encounter [place] [phone] Discharge Disposition: Home Social History Tobacco Use [...] with spacer fluticasone propionate (Flonase) 50 mcg/actuation [place], Suspension 1 spray by Each Nare route [...] Hospital Encounter Non-[place] [address] Arrived documented as of this [...] on filedocumented in this encounter Care Teams Toe Trimmer Relationship Specialty Start Date End Date Lolly Oliveira MD [address] [place] [address] PCP - General 07/17/13 documented as of this encounter
--- OUTSIDE RECORDS SUMMARY | 2024-02-18 11:26 | XMS_ITS | Encounter Summary ---
Author Organization [facility] [place] [address] Care Team Providers Care Farmworker Dairy Name Role Phone Lolly Oliveira MD Primary Care Provider [phone] Encounter Details Date Type Department Care Team (Late Contact Info) Description 01/14/2022 Telephone Dermatology at [address] [address] Nora Meredith LPN Social History [...] return to phototherapy. New order sent to [facility]. Reviewed with patient Dr. Mar recommendation. She agrees with plan of care. Advised patient order will be sent to [facility]. She voiced understanding. documented in this encounter Plan of Treatment Upcoming Encounters Date Type Department Care Team (Late Contact Info) Description 04/15/2024 10:00 AM EST Hospital Encounter Non-Invasive [place] [address] Arrived documented as of this encounter Visit Diagnoses Not on filedocumented in this encounter Care Teams Farmworker Dairy Relationship Specialty Start Date End Date Lolly Oliveira MD [address] [place] [address] PCP - General 07/17/13 documented as of this encounter
--- OUTSIDE RECORDS SUMMARY | 2024-02-18 11:26 | XMS_ITS | Encounter Summary ---
Author Organization [facility] Address [facility] [place] [address] Care Team Providers Care Tuckpointer Name Role Phone Lolly Oliveira MD Primary Care Provider [phone] Encounter Details Date Type Department Care Team (Late st Contact Info) Description 05/03/2023 Telephone Cardiology at [address] [phone] Lalit Mcmahon MD [facility] [address] Social History Tobacco Use Types Packs/Day Years [...] AM EST Hospital Encounter Non-In[place] [address] Arrived documented as of this encounter Visit Diagnoses Not on filedocumented in this encounter Care Teams Tuckpointer Relationship Specialty Start Date End Date Lolly Oliveira MD [address] [place] [address] PCP - General 07/17/13 documented as of this encounter
--- OUTSIDE RECORDS SUMMARY | 2024-02-18 11:26 | XMS_ITS | Encounter Summary ---
Author Organization [facility] [place] [address] Care Team Providers Care Plastics Fabrication Supervisor Name Role Phone Lolly Oliveira MD Primary Care Provider [phone] Encounter Details Date Type Department Care Team (Latest Contact Info) Description 04/21/2023 10:00 AM EST - 04/21/2023 11:59 PM EST Hospital Encounter Non-[place] [address] Discharge Disposition: Home Social History Tobacco Use [...] with spacer fluticasone propionate (Flonase) 50 mcg/actuation [place], Suspension 1 spray by Each Nare route [...] AM EST Hospital Encounter Non-[place] [address] Arrived documented as of this [...] filedocumented in this encounter Care Teams Plastics Fabrication Supervisor Relationship Specialty Start Date End Date Lolly Oliveira MD [address] [place] [address] PCP - General 07/17/13 documented as of this encounter
--- OUTSIDE RECORDS SUMMARY | 2024-02-18 11:26 | XMS_ITS | Encounter Summary ---
Author Organization [place] [address] Care Team Providers Care Veterinarian Poultry Name Role Phone Lolly Oliveira MD Primary Care Provider [phone] Encounter Details Date Type Department Care Team (Late st Contact Info) Description 11/16/2022 Telephone Cardiology at [address] [phone] Luna Rousseau, RN Social History Tobacco Use [...] BP today was 118/57 at CR at [facility]. Pt is going twice a [...] st Contact Info) Description 04/15/2024 10:00 AM [facility] Hospital Encounter [place] [address] Arrived documented as of this encounter Visit Diagnoses Not on filedocumented in this encounter Care Teams Veterinarian Poultry Relationship Specialty Start Date End Date Lolly Oliveira MD [address] [place] [address] PCP - General 07/17/13 documented as of this encounter
--- OUTSIDE RECORDS SUMMARY | 2024-02-18 11:26 | XMS_ITS | Encounter Summary ---
[place] [address] Care Team Providers Care Singe Machine Operator Name Role Phone Lolly Oliveira MD Primary Care Provider [phone] Encounter Details Date Type Department Care Team [...] AM EST Hospital Encounter Non-[place] [address] Arrived documented as of this encounter Visit Diagnoses Not on filedocumented in this encounter Care Teams Singe Machine Operator Relationship Specialty Start Date End Date Lolly Oliveira MD [address] [place] [address] PCP - General 07/17/13 documented as of this encounter
--- OUTSIDE RECORDS SUMMARY | 2024-02-18 11:26 | XMS_ITS | Encounter Summary ---
Author Organization [facility] [place] [address] Care Team Providers Care Neurosurgical Nurse Name Role Phone Lolly Oliveira MD Primary Care Provider [phone] Reason for Referral * Diagnostic Test (Routine) - Closed Specialty Diagnoses / Procedures Referred By Contac t Referred To Contact Radiology Diagnoses Left bundle branch block Nonischemic cardiomyopathy Procedures MRI Cardiac Morphology Function With Flow Velocity [facility] Contrast MRI Cardiac Morphology Function wwo Contrast Lalit Mcmahon MD [facility] [place] [address] [place] [address] Referral ID Status Reason Start Date Expiration Date V isits Requested Visits Authorized [id number] Closed Specialty Service Requested 05/06/2022 11/07/2023 2 1 Reason for Visit * Diagnostic Test (Routine) - Closed Specialty Diagnoses / Procedures Referred By Contac t Referred To Contact Radiology Diagnoses Left bundle branch block Nonischemic cardiomyopathy Procedures MRI Cardiac Morphology Function With Flow Velocity Quantification o Contrast MRI Cardiac Morphology Function wwo Contrast Lalit Mcmahon MD [facility] [place] [address] [place] [address] Referral ID Status Reason Start Date Expiration Date V isits Requested Visits Authorized [id number] Closed Specialty Service Requested 05/06/2022 11/07/2023 2 1 Encounter Details Date Type Department Care Team (Latest Contact Info) Description 07/14/2022 9:08 AM EDT Hospital Encounter MRI at [facility] [place] [address] Lalit Mcmahon MD [facility] [address] [place] [address] Left bundle branch block; Nonischemic cardiomyopathy Discharge [...] with spacer fluticasone propionate (Flonase) 50 mcg/actuation [place], Suspension 1 spray by Each Nare route [...] 71 y.o. : 1950 [address] [facility] [address] Female [phone] (home) No relevant phone numbers on file. Lolly Oliveira MD None Allergies Allergen Reactions ??? Sulfa (Sulfonamide Antibiotics) Date/Time of call: July 07, 2022/11:03 AM/ PREVIOUS MRI SCAN? HEIGHT: WEIGHT: SCHEDULED SCAN: MRI CARDIAC MORPHOLOGY FUNCTION WITH FLOW VELOCITY QUANTIFICATION WWO CONTRAST [[id number]] Order Questions Answers Where will study be performed? [facility] Radiology [120] SUBJECTIVE: Very Claustrophobic CAN [...] [place] ) You must have a tractor trailer truck driver present when you check in. This patient has been informed that they require a tractor trailer truck driver to drive them home after this procedure. In the absence of a tractor trailer truck driver, IR will not be able to sedate for your scan. Pt verbalized understanding of these instructions during the pre-procedure education via phone. Yes Name of tractor trailer truck driver: Daughter Phone number: PRIOR SCAN DATE/S SEDATION TYPE SUCCESSFUL 07/14/22 MRI Cardiac Morphology Function with Flow Velocity Quantification wwo Contrast Ativan 1mg x 1 dose Pass Revised 08/03/17 documented in this encounter Plan of Treatment Upcoming Encounters Date Type Department Care Team (Late st Contact Info) Description 04/15/2024 10:00 AM [facility] Hospital Encounter [place] [address] Arrived documented as of this encounter Procedures [...] have questions please contact the health career technology teacher that requested your imaging first. ? Electronically signed by: Greyson Herron MD, [facility] ([phone]), at 07/15/2022 9:53 AM Narrative 07/15/2022 9:53 [...] who have questions please contactthe health career technology teacher that requested your imaging first. Lalit [...] mg documented in this encounter Care Teams Neurosurgical Nurse Relationship Specialty Start Date End Date Lolly Oliveira MD [address] [place] [address] PCP - General 07/17/13 documented as of this encounter
--- OUTSIDE RECORDS SUMMARY | 2024-02-18 11:26 | XMS_ITS | Encounter Summary ---
Author Organization [facility] [place] [address] Care Team Providers Care Malware Analyst Name Role Phone Lolly Oliveira MD Primary Care Provider [phone] Encounter Details Date Type Department Care Team (Late st Contact Info) Description 03/17/2023 Telephone Cardiology at [address] [phone] Saranya aM Social History Tobacco Use Types Packs/Day Years [...] Echo order faxed to [facility] at [phone]. No Prior auth needed. Ref #:[id number]. Saranya Ma Sr. Clinical Procedure [place]/Retail Manager In Training documented in this encounter Plan of Treatment Upcoming Encounters Date Type Department Care Team (Late st Contact Info) Description 04/15/2024 10:00 AM [facility] Hospital Encounter Non-[place] [address] Arrived documented as of this encounter Visit Diagnoses Not on filedocumented in this encounter Care Teams Malware Analyst Relationship Specialty Start Date End Date Lolly Oliveira MD [address] [place] [address] PCP - General 07/17/13 documented as of this encounter
--- OUTSIDE RECORDS SUMMARY | 2024-02-18 11:26 | XMS_ITS | Encounter Summary ---
Author Organization [facility] [place] [address] Care Team Providers Care Metal Ceiling Builder Name Role Phone Lolly Oliveira MD Primary Care Provider [phone] Reason for Visit * Reason Onset Date Comments Other 07/24/2022 Implanted Cardia c Device Teaching/Education Encounter Details Date Type Department Care Team (Late st Contact Info) Description 07/24/2022 Notes Only Cardiology at [address] [phone] Letha Arroyo Other (Implanted Cardiac Device Teaching/Education) Social History Tobacco Use Types Packs/Day Years Used Date Smoking Tobacco: Never Alcohol Use Standard Drinks/Week Comments Not Currently 0 (1 standard drink = 0.6 oz pur e alcohol) [facility] Inpatient Questions Answer Date Recorded Does [...] to call the Cardiac Device Clinic at [phone] with any questions. Plan: Post op check: [...] [facility] Hospital Encounter [place] [address] Arrived documented as of this encounter Visit Diagnoses Not on filedocumented in this encounter Care Teams Metal Ceiling Builder Relationship Specialty Start Date End Date Lolly Oliveira MD [address] [place] [address] PCP - General 07/17/13 documented as of this encounter
--- OUTSIDE RECORDS SUMMARY | 2024-02-18 11:26 | XMS_ITS | Encounter Summary ---
Author Organization [facility] Address [facility] [place] [address] Care Team Providers Care Saw Handle Assembler Name Role Phone Lolly Oliveira MD Primary Care Provider [phone] Reason for Visit * Auth/Cert (Routine) Specialty Diagnoses / Procedures Referred By Contac t Referred To Contact Diagnoses Left bundle-branch block, unspecified Other cardiomyopathies Left bundle branch block [I44.7]Nonischemic cardiomyopathy [I42.8] Procedures PRG CATH PLMT LEFT HEART CATH & ARTS W/INJ & ANGIO IMG S&I ELECTROPHYSIOLOGY PROCEDURE Lalit Mcmahon MD [facility] [place] [address] [facility] Referral ID Status Reason Start Date Expiration Date Visits Re quested Visits Authorized [id number] 1 1 Encounter Details Date Type Department Care Team (Late st Contact Info) Description 07/23/2022 1:08 PM EDT Anesthesia Event [place] [address] Monae Gonzalez MD [facility] [place] [address] Maria Elena Snyder CRNA [facility] [place] [address] Anesthesia Record Procedure Summary Procedure Name Responsible [...] 1307; median cubital vein (antecubital fossa), right; whhe-rhe-uffprx catheter system; Anatomical Landmarks; 20 gauge; 07/24/22; [...] 1343; metacarpal vein (top of hand), left; [id number]-[id number] catheter system; Anatomical Landmarks; US Not Used; [...] Procedure Summary Date: 07/23/22 Room / Location: [facility] A-LAB ROOM 3 / [facility] EP LABS Anesthesia Start: 1308 Anesthesia Stop: 1633 Procedure: ELECTROPHYSIOLOGY PROCEDURE (Left) Diagnosis: Left bundle branch block Nonischemic cardiomyopathy (Left bundle branch block [I44.7]Nonischemic cardiomyopathy [I42.8]) Providers: Lalit Mcmahon MD Responsible Provider: Monae Gonzalez MD Anesthesia Type: general ASA Status: 4 All Anesthesia Providers: Anesthesiologist: Monae Gonzalez MD; Dominique Sen MD HEALTH PHYSICS TECHNICIAN: Maria Elena Snyder CRNA Vitals Value Taken Time BP 131/46 07/23/22 1700 Temp 36.7 ??C (98.1 ??F) 07/23/22 1627 Pulse 67 07/23/22 1703 Resp 14 07/23/22 1703 SpO2 98 % 07/23/22 1703 Pain Level Vitals shown include unvalidated device data. 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 No prior anesthetic records. Pt states that [...] daughter/son and patient who. Plan discussed with HEALTH PHYSICS TECHNICIAN. Anesthesia Screening documented in this encounter Plan of Treatment Upcoming Encounters Date Type Department Care Team (Late st Contact Info) Description 04/15/2024 10:00 AM [facility] Hospital Encounter Non-Invasive [place] [address] Arrived documented as of this [...] mg documented in this encounter Care Teams Saw Handle Assembler Relationship Specialty Start Date End Date Lolly Oliveira MD [address] [place] [address] PCP - General 07/17/13 documented as of this encounter
--- OUTSIDE RECORDS SUMMARY | 2024-02-18 11:26 | XMS_ITS | Encounter Summary ---
Author Organization [facility] [place] [address] Care Team Providers Care Senior Specialist Name Role Phone Lolly Oliveira MD Primary Care Provider [phone] Reason for Visit * Reason Comments Skin Check Encounter Details Date Type Department Care Team (Late st Contact Info) Description 11/23/2014 10:00 AM EDT Office Visit Dermatology at [address] [address] Clay Ramírez MD [address] [facility] [place] [address] Dermatofibroma; Nevus; Solar lentigo Discharge Disposition: Home [...] HEALTH CENTER Hospital Encounter Non-[place] [address] Arrived documented as of this encounter Visit Diagnoses Diagnosis Dermatofibroma Benign neoplasm of skin, site unspecified Nevus Benign neoplasm of skin, site unspecified Solar lentigo Other dyschromia documented in this encounter Care Teams Senior Specialist Relationship Specialty Start Date End Date Lolly Oliveira MD [address] [place] [address] PCP - General 07/17/13 documented as of this encounter
--- OUTSIDE RECORDS SUMMARY | 2024-02-18 11:26 | XMS_ITS | Encounter Summary ---
Author Organization [facility] [place] [address] Care Team Providers Care Quality Assurance Group Leader Name Role Phone Lolly Oliveira MD Primary Care Provider [phone] Reason for Visit * Reason Comments Follow-up Encounter Details Date Type Department Care Team (Late st Contact Info) Description 06/06/2021 8:45 AM EDT Office Visit Dermatology at [address] [address] Clay Ramírez MD [address] [facility] [place] [address] Psoriasis, guttate Social History Tobacco Use Types [...] EST Hospital Encounter Non-Invasive [place] [phone] Arrived documented as of this encounter Visit Diagnoses Diagnosis Psoriasis, guttate Other psoriasis documented in this encounter Care Teams Quality Assurance Group Leader Relationship Specialty Start Date End Date Lolly Oliveira MD [address] [place] [address] PCP - General 07/17/13 documented as of this encounter
--- OUTSIDE RECORDS SUMMARY | 2024-02-18 11:26 | XMS_ITS | Encounter Summary ---
[place] [address] Care Team Providers Care Sys Dir Name Role Phone Lolly Oliveira MD Primary Care Provider Encounter Details Date Type Department Care Team (Latest Contact Info) Description 07/26/2013 9:45 AM EDT - 07/26/2013 11:59 PM EDT Hospital En[place] [address] Mammographic microcalcification Social History Tobacco Use Types [...] Hospital Encounter Non-Invasive [place] [address] Arrived documented as of this encounter Procedures Procedure Name Priority Date/Time Associated Diagnosis Comments SURGICAL PATHOLOGY REPORT Routine 07/26/2013 12:12 PM EDT MAMMO SPECIMEN IMAGING DURING BIOPSY Routine 07/26/2013 11:58 AM EDT Mammographic microcalcification documented in this encounter Results * Surgical Pathology Report (07/26/2013 12:12 PM EDT) Final Diagnosis ? [facility] ? Provider: ?? ELENO CHRISTIAN ?? Pt. Name: ?? JING MOTT ? Acc #: ?[id number] ?Pt. ? Col Date: ?? 07/26/2013 ? [...] Partially fragmented, fibrofatty needle core biopsies. ? [facility] ? Provider: ?? ELENO CHRISTIAN ?? Pt. Name: ?? JING MOTT ? Acc #: ?[id number] ?Pt. ? Col Date: ?? 07/26/2013 ? [...] MD PATHOLOGY/CYTOLOGY O RDERABLES Performing Organization Address City/State/[facility] Co md Phone Number [facility] [place] [address] * Mammo Specimen Imaging During Biopsy (07/26/2013 [...] microcalcification documented in this encounter Care Teams Sys Dir Relationship Specialty Start Date End Date Lolly Oliveira MD [address] [place] [address] PCP - General 07/17/13 documented as of this encounter
--- OUTSIDE RECORDS SUMMARY | 2024-02-18 11:26 | XMS_ITS | Encounter Summary ---
Author Organization [facility] [place] [address] Care Team Providers Care Tour Driver Name Role Phone Lolly Oliveira MD Primary Care Provider [phone] Encounter Details Date Type Department Care Team (Latest Contact Info) Description 10/18/2023 10:00 AM EDT - 10/18/2023 11:59 PM EDT Hospital Encounter Non-[place] [address] Discharge Disposition: Home Social History Tobacco Use [...] with spacer fluticasone propionate (Flonase) 50 mcg/actuation [place], Suspension 1 spray by Each Nare route daily as needed. documented as of this encounter Plan of Treatment Upcoming Encounters Date Type Department Care Team (Late st Contact Info) Description 04/15/2024 10:00 AM EST Hospital Encounter Non-Invasive [place] [address] Arrived documented as of this encounter Procedures [...] on filedocumented in this encounter Care Teams Tour Driver Relationship Specialty Start Date End Date Lolly Oliveira MD [address] [place] [address] PCP - General 07/17/13 documented as of this encounter
--- OUTSIDE RECORDS SUMMARY | 2024-02-18 11:26 | XMS_ITS | Encounter Summary ---
Author Organization [facility] [place] [address] Care Team Providers Care Box Blank Machine Operator Helper Name Role Phone Lolly [...] [facility] [place] [address] [place] [address] Referral ID Status Reason Start Date Expiration Date V isits Requested Visits Authorized [id number] Closed Specialty Service Requested 05/06/2022 11/07/2023 2 1 Encounter Details Date Type Department Care Team (Late st Contact Info) Description 05/06/2022 Orders Only Cardiology at [address] [phone] Lalit Mcmahon MD [facility] [place] [address] Left bundle branch block; Nonischemic cardiomyopathy Social [...] Hospital Encounter Non-[place] [address] Arrived documented as of this encounter Results [...] cardiomyopathies documented in this encounter Care Teams Box Blank Machine Operator Helper Relationship Specialty Start Date End Date Lolly Oliveira MD [address] [place] [address] PCP - General 07/17/13 documented as of this encounter
--- OUTSIDE RECORDS SUMMARY | 2024-02-18 11:26 | XMS_ITS | Encounter Summary ---
Author Organization [facility] [place] [address] Care Team Providers Care Vehicle Body Maker Name Role Phone Lolly Oliveira MD Primary Care Provider [phone] Encounter Details Date Type Department Care Team (Late st Contact Info) Description 04/01/2021 3:30 PM EST Office Visit Dermatology at [address] [phone] Clay Ramírez MD [address], [place] [address] Psoriasis, guttate Social History Tobacco Use Types [...] Hospital Encounter Non-[place] [address] Arrived documented as of this encounter Visit Diagnoses Diagnosis Psoriasis, guttate Other psoriasis documented in this encounter Care Teams Vehicle Body Maker Relationship Specialty Start Date End Date Lolly Oliveira MD [address] [place] [address] PCP - General 07/17/13 documented as of this encounter
--- OUTSIDE RECORDS SUMMARY | 2024-02-18 11:26 | XMS_ITS | Encounter Summary ---
Author Organization [facility] [place] [address] Care Team Providers Care Hands Hanger Name Role Phone Lolly Oliveira MD Primary Care Provider [phone] Encounter Details Date Type Department Care Team (Latest Contact Info) Description 10/23/2022 10:00 AM EDT - 10/23/2022 11:59 PM EDT Hospital Encounter [place] [address] Discharge Disposition: Home Social History Tobacco Use [...] with spacer fluticasone propionate (Flonase) 50 mcg/actuation [place], Suspension 1 spray by Each Nare route [...] st Contact Info) Description 04/15/2024 10:00 AM [facility] Hospital Encounter Non-Invasive Cardiology Lab [place], [...] on filedocumented in this encounter Care Teams Hands Hanger Relationship Specialty Start Date End Date Lolly Oliveira MD [address] [place] [address] PCP - General 07/17/13 documented as of this encounter
--- OUTSIDE RECORDS SUMMARY | 2024-02-18 11:26 | XMS_ITS | Encounter Summary ---
Author Organization [facility] [place] [address] Care Team Providers Care Sharepoint Manager Name Role Phone Lolly Oliveira MD Primary Care Provider [phone] Encounter Details Date Type Department Care Team (Late st Contact Info) Description 05/18/2023 Telephone Dermatology at [address] [address] Nora Meredith LPN Social History [...] [facility] Hospital Encounter Non-Invasive [place] [address] Arrived documented as of this encounter Visit Diagnoses Not on filedocumented in this encounter Care Teams Sharepoint Manager Relationship Specialty Start Date End Date Lolly Oliveira MD [address] [place] [address] PCP - General 07/17/13 documented as of this encounter
--- OUTSIDE RECORDS SUMMARY | 2024-02-18 11:26 | XMS_ITS | Encounter Summary ---
Author Organization [facility] [place] [address] Care Team Providers Care Video Game Technician Name Role Phone Lolly Oliveira MD Primary Care Provider [phone] Encounter Details Date Type Department Care Team (Late st Contact Info) Description 10/09/2021 Telephone Dermatology at [address] [address] Nora Meredith LPN Social History [...] [facility] Hospital Encounter Non-Invasive [place] [address] Arrived documented as of this encounter Visit Diagnoses Not on filedocumented in this encounter Care Teams Video Game Technician Relationship Specialty Start Date End Date Lolly Oliveira MD [address] [place] [address] PCP - General 07/17/13 documented as of this encounter
--- OUTSIDE RECORDS SUMMARY | 2024-02-18 11:26 | XMS_ITS | Encounter Summary ---
Author Organization [facility] Address [facility] [place] [address] Care Team Providers Care Sales Service Route Manager Name Role Phone Lolly Oliveira MD Primary Care Provider [phone] Encounter Details Date Type Department Care Team (Late st Contact Info) Description 07/16/2022 Telephone Cardiology at [address] [phone] Llait Mcmahon MD [facility] [place] [address] Social History Tobacco Use Types Packs/Day Years [...] her nonischemic cardiomyopathy. She is scheduled for EYE CLINIC MANAGER-D implantation next week and looks forward to the procedure. We will see each other next week. Lalit Mcmahon MD [facility] Cardiac Electrophysiology 07/16/2022 8:52 AM documented in this encounter Plan of Treatment Upcoming Encounters Date Type Department Care Team (Late st Contact Info) Description 04/15/2024 10:00 AM EST Hospital Encounter Non-Invasive [place] [address] Arrived documented as of this encounter Visit Diagnoses Not on filedocumented in this encounter Care Teams Sales Service Route Manager Relationship Specialty Start Date End Date Lolly Oliveira MD [address] [place] [address] PCP - General 07/17/13 documented as of this encounter
--- OUTSIDE RECORDS SUMMARY | 2024-02-18 11:27 | XMS_ITS | Encounter Summary ---
[place] [address] Care Team Providers Care Chemical Compounder Name Role Phone Lolly Oliveira MD Primary Care Provider [phone] Encounter Details Date Type Department Care Team (Late st Contact Info) Description 07/17/2013 [place] [phone] Lolly Oliveira MD [address] [place], [place] [id number] Social History Tobacco Use Types Packs/Day Years [...] AM EST Hospital Encounter Non-[place] [address] Arrived documented as of this encounter Procedures [...] ON 07/06/13 AND 07/14/13) FROM [facility] DATED 07/17/13: ?? DIAGNOSTIC IMAGING SUMMARY: [...] OUTSIDE MAMMOGRAMS (PERFORMED ON 07/06/13 AND 07/14/13) [facility] DATED 07/17/13: DIAGNOSTIC IMAGING [...] filedocumented in this encounter Care Teams Chemical Compounder Relationship Specialty Start Date End Date Lolly Oliveira MD [address] [place] [address] PCP - General 07/17/13 documented as of this encounter
--- OUTSIDE RECORDS SUMMARY | 2024-02-18 11:27 | XMS_ITS | Encounter Summary ---
Author Organization [facility] [address] Care Team Providers Care Ct Mri Technologist Name Role Phone Lolly Oliveira MD Primary Care Provider [phone] Encounter Details Date Type Department Care Team (Latest Contact Info) Description 07/26/2013 9:45 AM EDT - 07/26/2013 11:59 PM EDT Hospital [place] [address] Mammographic microcalcification Social History Tobacco Use Types [...] AM EST Hospital Encounter Non-Invasive [place] [address] Arrived documented as of this encounter Procedures [...] microcalcification documented in this encounter Care Teams Ct Mri Technologist Relationship Specialty Start Date End Date Lolly Oliveira MD [address] [place] [address] PCP - General 07/17/13 documented as of this encounter
--- OUTSIDE RECORDS SUMMARY | 2024-02-18 11:27 | XMS_ITS | Encounter Summary ---
Author Organization [place] [address] Care Team Providers Care Earthmoving Labourer Name Role Phone Lolly Oliveira MD Primary Care Provider [phone] Encounter Details Date Type Department Care Team (Latest Contact Info) Description 07/26/2013 9:44 AM EDT - 07/26/2013 11:59 PM EDT Hospital En[place] [address] CLINIC, Lolly So MD [address] [place], [place] [id number] Mammographic microcalcification Discharge Disposition: Home Social History [...] AM EST Hospital Encounter Non[place] [address] Arrived documented as of this encounter Procedures [...] are present on specimen digital X-ray. A [employer]MS INVE[employer]MENTS-Stereo 13 Cylinder marker clip was placed. Cranio-caudal [...] mLs documented in this encounter Care Teams Earthmoving Labourer Relationship Specialty Start Date End Date Lolly Oliveira MD [address] [place] [address] PCP - General 07/17/13 documented as of this encounter
--- OUTSIDE RECORDS SUMMARY | 2024-02-18 11:27 | XMS_ITS | Encounter Summary ---
Author Organization [facility] [place] [address] Care Team Providers Care Sfdc Technical Architect Name Role Phone Lolly Oliveira MD Primary Care Provider [phone] Encounter Details Date Type Department Care Team (Latest Contact Info) Description 07/18/2013 [place] [phone] Alia Fraire MD [facility] [place] [address] Mammographic microcalcification (Primary Dx) Social History Tobacco [...] AM EST Hospital Encounter Non[place] [address] Arrived documented as of this encounter Results [...] are present on specimen digital X-ray. A Open Home Prork [employer]-Stereo 13 Cylinder marker clip was placed. [...] calcifications are present on specimendigital X-ray. A Open Home Prork Eviva-Stereo 13 Cylinder marker clip was placed. [...] does not layer and, therefore, are not administrative representative of milk of calcium. Again, these [...] does not layer and, therefore, are not administrative representative of milk of calcium. Again, these have an amorphous andpunctate appearance and remain indeterminate. Stereotactic guided biopsy isrecommended. Alia Fraire MD IMG MAMMO ORDERABLES documented in this encounter Visit Diagnoses Diagnosis Mammographic microcalcification- Primary Mammographic microcalcification Mammographic microcalcification Mammographic microcalcification Mammographic microcalcification documented in this encounter Care Teams Sfdc Technical Architect Relationship Specialty Start Date End Date Lolly Oliveira MD [address] [place] [address] PCP - General 07/17/13 documented as of this encounter
--- OUTSIDE RECORDS SUMMARY | 2024-02-18 11:27 | XMS_ITS | Encounter Summary ---
Author Organization [facility] [place] [address] Care Team Providers Care Social Sciences Lecturer Name Role Phone Unavailable Primary Care Provider Unavailabl e Encounter Details Date Type Department Care Team (Late st Contact Info) Description 07/14/2013 External Results XRay at [address] [place] [address] Provider, Scanning Social History Tobacco Use Types [...] Hospital Encounter Non-Invasive Cardiology Lab [facility] [place] [address] Arrived documented as of this encounter Procedures [...]
--- OUTSIDE RECORDS SUMMARY | 2024-02-18 11:27 | XMS_ITS | Encounter Summary ---
Author Organization [facility] [place] [address] Care Team Providers Care Financial Reporting Manager Name Role Phone Lolly Oliveira MD Primary Care Provider [phone] Encounter Details Date Type Department Care Team (Late st Contact Info) Description 06/29/2011 [place] [phone] Eleno Christian MD [facility] [place] [address] Social History Tobacco Use Types Packs/Day Years [...] AM EST Hospital Encounter Non[place] [address] Arrived documented as of this encounter Procedures [...] is a Non-reportable exam Eleno Christian MD [facility] FILM LIBRARY ORD ERABLES documented in this encounter Visit Diagnoses Not on filedocumented in this encounter Care Teams Financial Reporting Manager Relationship Specialty Start Date End Date Lolly Oliveira MD [address] [place] [address] PCP - General 07/17/13 documented as of this encounter
--- OUTSIDE RECORDS SUMMARY | 2024-02-18 11:27 | XMS_ITS | Encounter Summary ---
Author Organization [facility] [place] [address] Care Team Providers Care Cook Fishing Vessel Name Role Phone Unavailable Primary Care Provider Unavailabl e Encounter Details Date Type Department Care Team (Late st Contact Info) Description 07/14/2013 Orders [place] [address] Eleno Christian MD [facility] [place] [address] Social History Tobacco Use Types Packs/Day Years [...] AM EST Hospital Encounter Non-[place] [address] Arrived documented as of this encounter Visit Diagnoses Not on filedocumented in this encounter
--- OUTSIDE RECORDS SUMMARY | 2024-02-18 11:27 | XMS_ITS | Encounter Summary ---
Author Organization [facility] [place] [address] Care Team Providers Care Stone Finisher Name Role Phone Lolly Oliveira MD Primary Care Provider [phone] Encounter Details Date Type Department Care Team (Latest Contact Info) Description 07/20/2013 9:26 AM EDT - 07/20/2013 11:59 PM EDT Hospital En[place] [address] CLINIC, Lolly So MD [address] [place], [place] [id number] Mammographic microcalcification Discharge Disposition: Home Social History [...] AM EST Hospital Encounter Non-[place]vasive [place] [address] Arrived documented as of this encounter Procedures [...] does not layer and, therefore, are not hobbies and crafts sales representative of milk of calcium. Again, [...] does not layer and, therefore, are not hobbies and crafts sales representative of milk of calcium. Again, these have an amorphous andpunctate appearance and remain indeterminate. Stereotactic guided biopsy isrecommended. Alia Fraire MD IMG MAMMO ORDERABLES documented in this encounter Visit Diagnoses Diagnosis Mammographic microcalcification documented in this encounter Care Teams Stone Finisher Relationship Specialty Start Date End Date Lolly Oliveira MD [address] [place] [address] PCP - General 07/17/13 documented as of this encounter
--- OUTSIDE RECORDS SUMMARY | 2024-02-18 11:27 | XMS_ITS | Encounter Summary ---
Author Organization [facility] [place] [address] Care Team Providers Care Printed Circuit Boards Solder Leveler Name Role Phone Unavailable Primary Care Provider Unavailabl e Encounter Details Date Type Department Care Team (Late st Contact Info) Description 07/04/2012 [place] [address] Eleno Christian MD [facility] [place] [address] Social History Tobacco Use Types Packs/Day Years [...] AM EST Hospital Encounter [place] [address] Arrived documented as of this encounter Procedures [...] is a Non-reportable exam Eleno Christian MD [facility] FILM LIBRARY ORD ERABLES documented in this encounter Visit Diagnoses Not on filedocumented in this encounter
--- OUTSIDE RECORDS SUMMARY | 2024-02-18 11:27 | XMS_ITS | Encounter Summary ---
Author Organization [facility] [place] [address] Care Team Providers Care Galley Worker Name Role Phone Lolly Oliveira MD Primary Care Provider [phone] Encounter Details Date Type Department Care Team (Latest Contact Info) Description 07/17/2013 8:40 AM EDT - 07/17/2013 11:59 PM EDT Hospital Encounter XRay at [address] [place] [address] CLINIC, DR [facility] Discharge Disposition: Home Social [...] AM EST Hospital Encounter Non-Invasive Cardiology [place] [address] Arrived documented as of this encounter Visit Diagnoses Not on filedocumented in this encounter Care Teams Galley Worker Relationship Specialty Start Date End Date Lolly Oliveira MD [address] [place] [address] PCP - General 07/17/13 documented as of this encounter
--- OUTSIDE RECORDS SUMMARY | 2024-02-25 11:08 | XMS_ITS | Encounter Summary ---
Author Organization [facility] [place] [address] Care Team Providers Care Yarding Supervisor Name Role Phone Lolly Oliveira MD Primary Care Provider [phone] Encounter Details Date Type Department Care Team [...] Hospital Encounter Non-[place] [address] Arrived documented as of this encounter Visit Diagnoses Not on filedocumented in this encounter Care Teams Yarding Supervisor Relationship Specialty Start Date End Date Lolly Oliveira MD [address] [place] [address] PCP - General 07/17/13 documented as of this encounter
--- OUTSIDE RECORDS SUMMARY | 2024-02-25 11:08 | XMS_ITS | Encounter Summary ---
Author Organization [facility] Address [address] [place] [address] Care Team Providers Care Pack Mule Worker Name Role Phone Lolly Oliveira MD Primary Care Provider [phone] Encounter Details Date Type Department Care Team (Late st Contact Info) Description 03/06/2003 Results Only [facility] conversion [address] [place] [address] Lolly Oliveira MD [address] [place], [place] [id number] Social History Tobacco Use Types Packs/Day Years [...] ORDERABLES Final Resu lt [facility] [address] [place] [address] documented in this encounter Visit Diagnoses Not on filedocumented in this encounter Care Teams Pack Mule Worker Relationship Specialty Start Date End Date Lolly Oliveira MD [address] [place] [address] PCP - General 11/13/08 documented as of this encounter
--- OUTSIDE RECORDS SUMMARY | 2024-02-25 11:08 | XMS_ITS | Encounter Summary ---
Author Organization [facility] [place] [address] Care Team Providers Care Group Home Manager Name Role Phone Lolly Oliveira MD Primary Care Provider [phone] Encounter Details Date Type Department Care Team (Latest Contact Info) Description 10/18/2023 10:00 AM EDT - 10/18/2023 11:59 PM EDT Hospital Encounter Non-Invasive [place] [address] Discharge Disposition: Home Social History Tobacco Use [...] with spacer fluticasone propionate (Flonase) 50 mcg/actuation [place], Suspension 1 spray by Each Nare route daily as needed. documented as of this encounter Plan of Treatment Upcoming Encounters Date Type Department Care Team (Late st Contact Info) Description 04/15/2024 10:00 AM EST Hospital Encounter Non-Invasive [place] [address] Arrived documented as of this encounter Procedures [...] Date Lolly Oliveira MD [address] [place] [address] PCP - General 07/17/13 documented as of this encounter
--- OUTSIDE RECORDS SUMMARY | 2024-02-25 11:08 | XMS_ITS | Encounter Summary ---
Author Organization [facility] Address [address] [place] [address] Care Team Providers Care Trust Advisor Name Role Phone Lolly Oliveira MD Primary Care Provider [phone] Encounter Details Date Type Department Care Team (Late st Contact Info) Description 03/21/2019 Lab Requisition [facility] Pathology & Laboratory Medicine - [address] [address] Unknown, Provider, Social History Tobacco Use Types [...] 211 - 911 pg/mL 03/22/2019 11:52 EST [facility] Blood VENOUS BLOOD / Unknown 03/16/2019 9:25 EST 03/21/2019 21:35 EST us Provider Unknown CHEMISTRY & BLOOD GAS ORDERA BLES Final Result [facility] [address] [place] [address] documented in this encounter Visit Diagnoses Not on filedocumented in this encounter Care Teams Trust Advisor Relationship Specialty Start Date End Date Lolly Oliveira MD [address] [place] [address] PCP - General 11/13/08 documented as of this encounter
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
--- OUTSIDE RECORDS SUMMARY | 2024-02-25 11:08 | XMS_ITS | Clinical Summary ---
Author Organization [facility] Address [address] [place] [address] Care Team Providers Care Coil Builder Name Role Phone Lolly Oliveira MD Primary Care Provider [phone] Social History Tobacco Use Types Packs/Day Years [...] 08/10/2023 COVID-19 Vaccine (2023- season) 2023 Insurance [facility] MEDICARE Care Teams Coil Builder Relationship Specialty Start Date End Date Berrian, Lolly, MD [address] [place] [address] PCP - General 11/13/08
--- OUTSIDE RECORDS SUMMARY | 2024-02-25 11:08 | XMS_ITS | Encounter Summary ---
Author Organization [facility] Address [address] [place] [address] Care Team Providers Care Senior Informatica Etl Developer Name Role Phone Lolly Oliveira MD Primary Care Provider [phone] Encounter Details Date Type Department Care Team (Late st Contact Info) Description 04/17/2005 Results Only [facility] conversion [address] [place] [address] Lolly Oliveira MD [address] [place], [place] [id number] Social History Tobacco Use Types Packs/Day Years [...] ? JING ALVARENGA ? Accession #: ? [id number] : ? 1950 (Age: 54) ??F ?Collect Date: ? 04/17/2005 Location: ? [facility] ? Receive Date: ? 04/21/2005 Provider: ?LOLLY OLIVEIRA MD Copy to: ? Specimen/Source: ?ThinPrep Pap Test, Cervix/Endocervix, processed on [employer] ThinPrep Imaging System, with manual evaluation Last [...] Final Resu lt [facility] [address] [place] [address] documented in this encounter Visit Diagnoses Not on filedocumented in this encounter Care Teams Senior Informatica Etl Developer Relationship Specialty Start Date End Date Lolly Oliveira MD [address] [place] [address] PCP - General 11/13/08 documented as of this encounter
--- OUTSIDE RECORDS SUMMARY | 2024-02-25 11:08 | XMS_ITS | Encounter Summary ---
Author Organization [facility] Address [address] [place] [address] Care Team Providers Care Siebel Consultant Name Role Phone Lolly Oliveira MD Primary Care Provider [phone] Encounter Details Date Type Department Care Team (Late st Contact Info) Description 04/12/2007 Results Only [facility] conversion [address] [place] [address] Lolly Oliveira MD [address] [place], [place] [id number] Social History Tobacco Use Types Packs/Day Years [...] ? JING ALVARENGA ? Accession #: ? [id number] : ? 1950 (Age: 56) ??F ?Collect Date: ? 04/12/2007 Location: ? [facility] ? Receive Date: ? 04/13/2007 Provider: ?LOLLY OLIVEIRA MD Copy to: ? Specimen/Source: ?ThinPrep Pap Test, Cervix/Endocervix, processed on [employer] ThinPrep Imaging System, with manual evaluation Last [...] ORDERABLES Final Resu lt [facility] [address] [place] [address] documented in this encounter Visit Diagnoses Not on filedocumented in this encounter Care Teams Siebel Consultant Relationship Specialty Start Date End Date Lolly Oliveira MD [address] [place] [address] PCP - General 11/13/08 documented as of this encounter
--- OUTSIDE RECORDS SUMMARY | 2024-02-25 11:08 | XMS_ITS | Encounter Summary ---
Author Organization [facility] Address [address] [place] [address] Care Team Providers Care Lead Teller Name Role Phone Lolly Oliveira MD Primary Care Provider [phone] Encounter Details Date Type Department Care Team (Late st Contact Info) Description 04/25/[address] [facility] Laboratory Services - [facility] [place] [address] [place], [place] [id number] Lolly Oliveira MD [address] [place], [place] [phone] Social History Tobacco Use Types Packs/Day Years [...] ? JING ALVARENGA ? Accession #: ? [id number] ? : ? 1950 (Age: 58) ??F [...] Final Resu lt Performing Organization Address [facility]/State/ZIP Co de Phone Number [facility] [address] [place] [address] documented in this encounter Visit Diagnoses Not on filedocumented in this encounter Care Teams Lead Teller Relationship Specialty Start Date End Date Lolly Oliveira MD [address] [place] [address] PCP - General 11/13/08 documented as of this encounter
--- OUTSIDE RECORDS SUMMARY | 2024-02-25 11:08 | XMS_ITS | Encounter Summary ---
Author Organization [facility] Address [address] [place] [address] Care Team Providers Care Insurance Claims Examiner Name Role Phone Lolly Oliveira MD Primary Care Provider [phone] Encounter Details Date Type Department Care Team (Late st Contact Info) Description 05/02/2004 Results Only [facility] conversion [address] [place] [address] Lolly Oliveira MD [address] [place], [place] [id number] Social History Tobacco Use Types Packs/Day Years [...] 68. [facility] Report Status Final [id number] [facility] 05/02/2004 9:32 EST 05/10/2004 9:32 EST us Lolly Oliveira MD MICROBIOLOGY - GENERAL ORDERABL ES Final Result [facility] [address] [place] [address] * CYTOPATHOLOGY (05/02/2004 0:00 EST) Pathology Report: CYTOPATHOLOGY REPORT Reports generated via electronic interface contain original data; however they are lacking the format of the original report. Caution should be taken when reading/interpreti ng unformatted reports. Name: ? JING ALVARENGA ? Accession #: ? [id number] : ? 1950 (Age: 53) ??F ?Collect [...] ORDERABLES Final Resu lt Performing Organization Address City/State/[facility] Co de Phone Number [facility] [address] [place] [address] documented in this encounter Visit Diagnoses Not on filedocumented in this encounter Care Teams Insurance Claims Examiner Relationship Specialty Start Date End Date Lolly Oliveira MD [address] [place] [address] PCP - General 11/13/08 documented as of this encounter
--- OUTSIDE RECORDS SUMMARY | 2024-02-25 11:08 | XMS_ITS | Encounter Summary ---
Author Organization [facility] Address [address] [place] [address] Care Team Providers Care Mechanic Driver Name Role Phone Unavailable Primary Care Provider Unavailabl e Encounter Details Date Type Department Care Team (Late st Contact Info) Description 11/07/2008 Orders Only [facility] Laboratory Services - [facility] [address] [place] [address] Kenneth Parker MD [address] [place] [address] Social History Tobacco Use Types Packs/Day Years [...] ? JING ALVARENGA ? Accession #: ? [id number] ? : ? 1950 (Age: 58) ??F [...] ORDERABLES Final Resu lt [facility] [address] [place] [address] documented in this encounter Visit Diagnoses Not on filedocumented in this encounter
--- OUTSIDE RECORDS SUMMARY | 2024-02-25 11:08 | XMS_ITS | Encounter Summary ---
Author Organization [facility] [place] [address] Care Team Providers Care Triple Drum Operator Name Role Phone Lolly Oliveira MD Primary Care Provider [phone] Reason for Visit * Reason Comments Follow-up 8 weeks UVB treatmen t twice weekly Encounter Details Date Type Department Care Team (Late st Contact Info) Description 07/19/2023 11:00 AM EDT Office Visit Dermatology at [address] [id number] Clay Ramírez MD [address], ERIKA A DERMATOLOGY [place], [place] [phone] Psoriasis Social History Tobacco Use Types Packs/Day [...] Progress Notes * lCay Ramírez MD - 07/19/2023 11:00 AM EDT [...] [facility] Hospital Encounter Non-[place] [address] Arrived documented as of this encounter Visit Diagnoses Diagnosis Psoriasis Other psoriasis documented in this encounter Care Teams Triple Drum Operator Relationship Specialty Start Date End Date Lolly Oliveira MD [address] [place] [address] PCP - General 07/17/13 documented as of this encounter
--- OUTSIDE RECORDS SUMMARY | 2024-02-25 11:08 | XMS_ITS | Encounter Summary ---
Author Organization [facility] Address [address] [place] [address] Care Team Providers Care Meeting/Event Planner Name Role Phone Lolly Oliveira MD Primary Care Provider [phone] Encounter Details Date Type Department Care Team (Late st Contact Info) Description 04/01/2005 Results Only [facility] conversion [address] [place] [address] Blair Dukes MD [address] [place] [id number] Social History Tobacco Use Types Packs/Day Years [...] when reading/interpreti ng unformatted reports. Name: ? JNIG ALVARENGA ? Accession #: ? [id number] ? : ? 1950 (Age: 54) ??F [...] ? Received in Hollande' s fixative labelled [place] and #1 ??terminal ileum bx is a single 0.3 x 0.2 x 0.2 cm tissue, submitted intact as (A). Received in Hollande' s fixative labelled [place] and #2 ??transverse colon bx is a single 0.2 x 0.2 x 0.2 cm tissue, submitted intact as (B). ??(Dr. Lechuga)/[facility] End of Report [facility] 04/01/2005 04/02/2005 15: 24 EST us Blair Dukes MD PATHOLOGY ORDERABLES Final Resul t [facility] [address] [place] [address] documented in this encounter Visit Diagnoses Not on filedocumented in this encounter Care Teams Meeting/Event Planner Relationship Specialty Start Date End Date Lolly Oliveira MD [address] [place] [address] PCP - General 11/13/08 documented as of this encounter
--- OUTSIDE RECORDS SUMMARY | 2024-02-25 11:08 | XMS_ITS | Encounter Summary ---
Author Organization [facility] Address [address] [place] [address] Care Team Providers Care Still Worker Helper Name Role Phone Lolly Oliveira MD Primary Care Provider [phone] Encounter Details Date Type Department Care Team (Late st Contact Info) Description 05/27/2021 Lab Requisition [facility] Pathology & Laboratory Medicine - [address] [address] Iman Moran, DO [address] [place], [place] [phone] Encounter for other general examination Social History [...] explore management options, if applicable. 05/30/2021 13:31 [facility] Final Diagnosis A. COLON, POLYP AT 90 CM, BIOPSY/POLYPECTOM Y: - Tubular adenoma. 05/30/2021 13:31 [facility] Attestation By the signature below, the attending physician certifies that they have 1) personally conducted a gross and/or microscopic examination of the described specimen(s), and/or personally interpreted the results of laboratory testing of the described specimen(s), and 2) personally rendered or confirmed the above diagnosis. 05/30/2021 13:31 [facility] at 1331 Clinical History Severe diverticula and polypectomy x1 05/30/2021 13:31 [facility] Gross Description A. Received in formalin labelled with proper patient identification (initials J, K) and colon polyp x1 at 90 cm is a light pineda polypoid tissue measuring 0.2 x 0.2 x 0.2 cm. Submitted intact in A1. MICKEY CARLOS(ASCP) 05/27/2021 19:11 05/30/2021 13:31 [facility] Performing Lab [facility] 05/30/2021 13:31 [facility] Scanned Images 05/30/2021 13:31 [facility] Tissue ENTIRE COLON / Unknown 05/27/2021 11:23 EDT 05/27/2021 16:33 EDT us Iman Moran DO PATHOLOGY ORDERABLES Final Re sult [facility] [address] [place] [address] documented in this encounter Visit Diagnoses Diagnosis Encounter for other general examination documented in this encounter Care Teams Still Worker Helper Relationship Specialty Start Date End Date Lolly Oliveira MD [address] [place] [address] PCP - General 11/13/08 documented as of this encounter
--- OUTSIDE RECORDS SUMMARY | 2024-02-25 11:08 | XMS_ITS | Clinical Summary ---
Author Organization [facility] [place] [address] Care Team Providers Care Nuclear Reactor Operator Name Role Phone Lolly Oliveira MD Primary Care Provider [phone] Allergies Active Allergy Reactions Criticality Noted Date [...] spacer Active fluticasone propionate (Flonase) 50 mcg/actuation [place], Suspension 1 spray by Each Nare [...] PM EST Hospital Encounter [place] [address] Discharge Disposition: Home from Last [...] AM EST Hospital Encounter [place] [address] Arrived Health Maintenance Due Date Last Done [...] 75+ series) 08/10/2023 Covid-19 Vaccine (1 - 2023- season) 2023 Influenza (Flu) vaccine (1 o f 1 - Influenza standard series) 11/07/2023 Medical Devices Implanted Type Area Assistant Manager Of Operations Device Identifier Shelf Expiration Date Model / Serial / Lot Bsx: [id number]: [id number]/18/2 023 Implanted: by Lalit Mcmahon MD (Quantity not on file) Defibrillator Chest Wall [employer] [id number] / [id number] / Bsx: [id number]: [id number]/18/2 023 Implanted: by Lalit Mcmahon MD (Quantity not on file) Lead Heart [employer] 4674 / [id number] / Bsx: [id number]: [id number] Implanted: by Lalit Mcmahon MD (Quantity not on file) Lead Heart [employer] 7841 / [id number] / Bsx: [id number]: [id number]/18/2 023 Implanted: by Lalit Mcmahon MD (Quantity not on file) Lead Heart [employer] 0672 / [id number] / Advance Directives * Attempt Cardiopulmonary Resuscitation - Inpatient (Latest Code Status on File) Date Activated Date Inactivated Comments 07/23/2022 4:30 PM 07/24/2022 12:32 PM Question Answer Comments Code Status decision made by: Patient Care Teams Nuclear Reactor Operator Relationship Specialty Start Date End Date Lolly Oliveira MD [address] [place] [address] PCP - General 07/17/13
--- OUTSIDE RECORDS SUMMARY | 2024-02-25 11:08 | XMS_ITS | Encounter Summary ---
Author Organization [facility] Address [address] [place] [address] Care Team Providers Care Partner Manager Name Role Phone Lolly Oliveira MD Primary Care Provider [phone] Encounter Details Date Type Department Care Team (Late st Contact Info) Description 05/29/2002 Results Only [facility] conversion [address] [place] [address] Silvia Diehl, [address] [place] [phone] Social History Tobacco Use Types Packs/Day Years [...] Name: ? LYLEJING ? Accession #: ? [id number] : ? 1950 (Age: 51) ??F ?Collect Date: ? 05/29/2002 Location: ? [facility] ? Receive Date: ? 05/31/2002 Provider: ?SILVIA DIEHL IMPORT/EXPORT CLERK Copy to: ? Specimen/Source: ?ThinPrep Pap [...] [facility] 05/29/2002 05/31/2002 us Silvia Diehl IMPORT/EXPORT CLERK PATHOLOGY ORDERABLES Final R esult [facility] [address] [place] [address] documented in this encounter Visit Diagnoses Not on filedocumented in this encounter Care Teams Partner Manager Relationship Specialty Start Date End Date Lolly Oliveira MD [address] [place] [address] PCP - General 11/13/08 documented as of this encounter
--- OUTSIDE RECORDS SUMMARY | 2024-02-25 11:08 | XMS_ITS | Encounter Summary ---
Author Organization [facility] Address [address] [place] [address] Care Team Providers Care Skilled Nursing Facilities Professional Name Role Phone Lolly Oliveira MD Primary Care Provider [phone] Encounter Details Date Type Department Care Team (Late st Contact Info) Description 11/13/2020 Lab Requisition [facility] Pathology & Laboratory Medicine - [address] [address] Outr Resulting Lab, Provider Social History Tobacco [...] MICROBIOLOGY - GENER AL ORDERABLES Final Result [facility] [address] [place] [address] * COVID-19 TESTING (11/13/2020 7:30 EDT) COVID-19 rt-PCR Result Negative Negative 11/14/2020 11:46 EDT [facility] Comment: This test has [...] performed using the med SARS-CoV-2 assay (Stephanie [place] on the Med 6800 System Performing Lab Med 68[address] [facility] 11/14/2020 11:46 EDT [facility] Swab 11/13/2020 7:30 EDT 11/13/2020 20:57 EDT us Provider Outr Resulting Lab MICROBIOLOGY - GENER AL ORDERABLES Final Result Performing Organization Address [facility] Co de Phone Number [facility] [address] [place] [address] documented in this encounter Visit Diagnoses Not on filedocumented in this encounter Care Teams Skilled Nursing Facilities Professional Relationship Specialty Start Date End Date Lolly Oliveira MD [address] [place] [address] PCP - General 11/13/08 documented as of this encounter
--- OUTSIDE RECORDS SUMMARY | 2024-02-25 11:08 | XMS_ITS | Encounter Summary ---
Author Organization [facility] Address [address] [place] [address] Care Team Providers Care Splicer Apprentice Name Role Phone Lolly Oliveira MD Primary Care Provider [phone] Encounter Details Date Type Department Care Team (Late st Contact Info) Description 02/20/2020 Lab Requisition [facility] Pathology & Laboratory Medicine - [address] [id number] Outr Resulting Lab, Provider Social History Tobacco [...] in accordance with CLIA regulations, College of [place] [employer] (CAP) guidelines (May 25, 2019), and FDA guidance (May 06, 2019). This test is only for use under the Food and Drug Administration's Emergency Use Authorization. Swab ENTIRE NASOPHARYNX / Unknown 02/19/2020 16:30 EST 02/20/2020 16:09 EST us Provider Outr Resulting Lab MICROBIOLOGY - GENER AL ORDERABLES Final Result [facility] [place] * COVID-19 TESTING (02/19/2020 16:30 EST) COVID-19 rt-PCR Result NEGATIVE Negative 02/22/2020 23:41 EST [facility] Comment: 2019-novel Coronavirus (2019-nCoV) not detected [...] in accordance with CLIA regulations, College of [place] [employer] (CAP) guidelines (May 25, 2019), and FDA guidance (May 06, 2019). This test is only for use under the Food and Drug Administration's Emergency Use Authorization. Performing Lab [facility] 02/22/2020 23:41 EST [facility] Swab 02/19/2020 16:3 0 EST 02/20/2020 16:09 EST us Provider Outr Resulting Lab MICROBIOLOGY - GENER AL ORDERABLES Final Result [facility] [address] [place] [address] [facility] [place], [place] documented in this encounter Visit Diagnoses Not on filedocumented in this encounter Care Teams Splicer Apprentice Relationship Specialty Start Date End Date Lolly Oliveira MD [address] [place] [address] PCP - General 11/13/08 documented as of this encounter
--- OUTSIDE RECORDS SUMMARY | 2024-02-25 11:08 | XMS_ITS | Encounter Summary ---
Author Organization [facility] Address [address] [place] [address] Care Team Providers Care Agricultural Chemicals Inspector Name Role Phone Lolly Oliveira MD Primary Care Provider [phone] Encounter Details Date Type Department Care Team (Late st Contact Info) Description 02/11/2021 Lab Requisition [facility] Pathology & Laboratory Medicine - [address] [id number] Outr Resulting Lab, Provider Social History Tobacco [...] GENER AL ORDERABLES Final Result [facility] [address] [place] [address] * COVID-19 TESTING (02/11/2021 8:00 EST) COVID-19 rt-PCR Result Negative Negative 02/12/2021 14:17 EST [facility] Comment: This test has [...] performed using the med SARS-CoV-2 assay ([employer]phanie [employer] on the Med 6800 System Performing Lab Med [address] [facility] 02/12/2021 14:17 EST [facility] Swab 02/11/2021 8:00 EST 02/11/2021 22:22 EST us Provider Outr Resulting Lab MICROBIOLOGY - GENER AL ORDERABLES Final Result [facility] [address] [place] [address] documented in this encounter Visit Diagnoses Not on filedocumented in this encounter Care Teams Agricultural Chemicals Inspector Relationship Specialty Start Date End Date Lolly Oliveira MD [address] [place] [address] PCP - General 11/13/08 documented as of this encounter
--- OUTSIDE RECORDS SUMMARY | 2024-02-25 11:08 | XMS_ITS | Referral Summary ---
Author Organization [facility] Address [address] [place] [address] Care Team Providers Care Pilot Plant Research Technician Name Role Phone Lolly Oliveira MD Primary Care Provider [phone] Social History Tobacco Use Types Packs/Day Years Used Date Smoking Tobacco: Never Assessed Comments Unknown Sex and Gender Information Value Date Recorded Sex Assigned at Not on file Legal Sex Female 18:31 EST Gender Identity Not on file Sexual Orientation Not on file Plan of Treatment Not on file Insurance [facility] MEDICARE Care Teams Pilot Plant Research Technician Relationship Specialty Start Date End Date Lolly Oliveira MD [address] [place] [address] PCP - General 11/13/08
--- OUTSIDE RECORDS SUMMARY | 2024-02-25 11:08 | XMS_ITS | Encounter Summary ---
Author Organization [facility] [place] [address] Care Team Providers Care Vp & General Counsel Name Role Phone Lolly Oliveira MD Primary Care Provider [phone] Encounter Details Date Type Department Care Team (Latest Contact Info) Description 07/20/2023 10:00 AM EDT - 07/20/2023 11:59 PM EDT Hospital Encounter [place] [address] Discharge Disposition: Home Social History Tobacco Use [...] with spacer fluticasone propionate (Flonase) 50 mcg/actuation [place], Suspension 1 spray by Each Nare route daily as needed. documented as of this encounter Plan of Treatment Upcoming Encounters Date Type Department Care Team (Late st Contact Info) Description 04/15/2024 10:00 AM EST Hospital Encounter [place] [address] Arrived documented as of this encounter Procedures [...] filedocumented in this encounter Care Teams Vp & General Counsel Relationship Specialty Start Date End Date Lolly Oliveira MD [address] [place] [address] PCP - General 07/17/13 documented as of this encounter
--- OUTSIDE RECORDS SUMMARY | 2024-02-25 11:08 | XMS_ITS | Data Portability ---
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 Car? No Information no t available 05/21/2023 Do You Always Fasten Your Seat Belt When You Are In A Car? Yes- Usually [email or web address] Information not available 05/21/2023 How Often During The Past Four Weeks Have You Been Bothered By Any Of The Following Problems? Falling Or Dizzy When Standing Up? Never [email or web address] Information not available 05/21/2023 Sexual Problems? Never [email or web address] Informat ion not available 05/21/2023 Trouble Eating Well? Sometimes [email or web address] Information not available 05/21/2023 Teeth Or Denture Problems? Sometimes [email or web address] Information not available 05/21/2023 Problems Using The Telephone? Never [email or web address] Information not available 05/21/2023 Tiredness Or Fatigue? Sometimes [email or web address] Information not available 05/21/2023 Have You Had 2 Or More Falls Or Sustained An Injury With A Fall In The Last Year? No [email or web address] Information no t available 05/21/2023 Do You Have Difficulty With Walking Or Balance? No [email or web address] Information not available 05/21/2023 Do You Currently Use A Hearing Device? No [email or web address] Information not available 05/21/2023 Do You Currently Have Any Trouble With Your Vision? Yes [email or web address] Information no t available 05/21/2023 Do You Exercise For About 20 Minutes Three Or More Days A Week? Yes- Most Of The Time [email or web address] Information not available 05/21/2023 Are There Any Safety Concerns In Your Home (see Attached [facility] Pamphlet)? No [email or web address] Information not available 05/21/2023 How Often Do You Have Trouble Taking Medicines The Way You Have Been Told To Take Them? I Always Take Them As Prescribed [email or web address] Information not available 05/21/2023 How Confident Are You That You Can Control And Manage Most Of Your Health Problems? Very Confident Information not available 05/21/2023 Do You Currently Have Any Difficulty With Your Hearing? No [email or web address] Information not available 05/21/2023 Date Of Most Recent SBINS 05/21/2023 [email or web address] Information not available 05/21/2023 What Was The Date Of Your Most Recent Tobacco Screening? 09/01/2023 Information not available 09/01/2023 Has Tobacco Cessation Counseling Been Provided? Yes Information not available 09/01/2023 On What Date Was Tobacco Cessation Counseling Provided? 09/01/2023 Information not available 09/01/2023 Do You Or Have You Ever Used Any Other Forms Of Tobacco Or Nicotine? No [email or web address] Information not available 05/21/2023 Sex: Female Functional [...] preservative free, adsorbed 9 completed Not Available [facility] 01/15/2023 04:53:39 Tdap 8 completed Not Available [facility] 01/15/2023 04:53:39 zoster live 3 completed Not Available [facility] 01/15/2023 04:53:40 Pneumococcal conjugate PCV 13 6 completed Not Available [facility] 01/15/2023 04:53:40 Influenza, high-dose, trivalent, PF 8 completed Not Available [facility] 01/15/2023 04:53:41 Td(adult) unspecified formulation 3 completed Not Available [facility] 01/15/2023 04:53:41 Influenza, split virus, trivalent, preservative 6 completed Not Available [facility] 01/15/2023 04:53:41 Influenza, split virus, trivalent, preservative 5 completed Not Available [facility] 01/15/2023 04:53:41 Influenza, split virus, quadrivalent, PF 9 completed Not Available [facility] 01/15/2023 04:53:41 zoster recombinant 9 completed Not Available [facility] 01/15/2023 04:53:42 zoster recombinant 8 completed Not Available [facility] 01/15/2023 04:53:42 Influenza, high-dose, quadrivalent, PF 1 completed Not Available [facility] 01/15/2023 04:53:43 Influenza, high-dose, quadrivalent, PF 0 completed Not Available [facility] 01/15/2023 04:53:43 Influenza, high-dose, quadrivalent, PF 2 completed Not Available [facility] 01/15/2023 04:53:43 COVID-19, mRNA, LNP-S, PF, 100 mcg/0.5mL dose or 50 mcg/0.25mL dose 2 completed Not Available [facility] 01/15/2023 04:53:43 COVID-19 vaccine, vector-nr, rS-Ad26, PF, 0.5 mL 1 completed Not Available [facility] 01/15/2023 04:53:44 SARS-COV-2 (COVID-19) vaccine, UNSPECIFIED 1 completed Not Available [facility] 01/15/2023 04:53:44 SARS-COV-2 (COVID-19) vaccine, UNSPECIFIED 1 completed Not Available [facility] 01/15/2023 04:53:44 pneumococcal polysaccharide PPV23 5 completed Not Available [facility] 01/15/2023 04:53:45 Hep B, unspecified formulation 4 completed Not Available [facility] 01/15/2023 04:53:45 Hep B, unspecified formulation 3 completed Not Available [facility] 01/15/2023 04:53:46 Hep B, unspecified formulation 3 completed Not Available [facility] 01/15/2023 04:53:46 influenza, unspecified formulation 0 completed Not Available [facility] 01/15/2023 04:53:47 influenza, unspecified formulation 3 completed Not Available [facility] 01/15/2023 04:53:47 influenza, unspecified formulation 9 completed Not Available [facility] 01/15/2023 04:53:47 influenza, unspecified formulation 1 completed Not Available [facility] 01/15/2023 04:53:47 influenza, unspecified formulation 7 completed Not Available [facility] 01/15/2023 04:53:48 influenza, unspecified formulation 4 completed Not Available [facility] 01/15/2023 04:53:48 influenza, unspecified formulation 8 completed Not Available [facility] 01/15/2023 04:53:48 influenza, unspecified formulation 2 completed Not Available [facility] 01/15/2023 04:53:48 Influenza, high-dose, quadrivalent, PF 3 completed Not Available [facility] 03/19/2023 05:33:03 COVID-19, mRNA, LNP-S, PF, herminio-sucrose, 30 mcg/0.3 mL 3 completed Not Available [facility] 03/19/2023 05:33:03 COVID-19, mRNA, LNP-S, bivalent, PF, 50 mcg/0.5 mL or 25mcg/0.25 mL dose 4 completed DENYS Bauer, [facility] 12/20/2023 15:23:33 Respiratory syncytial virus (RSV) vaccine, unspecified 4 completed DENYS Bauer, [facility] 12/20/2023 15:24:29 influenza, unspecified formulation 4 completed DENYS Bauer, [facility] 12/20/2023 15:25:14 Past Encounters Encounter ID Performer Location Encounter Start Date Encounter Closed Date Diagnosis/Indication Diagnosis SNOMED-CT Code Diagnosis ICD10 Code [id number] LOLLY CORTEZ MD [address] [address] 05/21/2023 10:03:54 05/21/2023 11:37:49 Onychomycosis 542613970 B35.1 Asthma 406692108 J45.90 9 Cardiomyopathy 63604738 I10 Disorder of hip joint 42 8025433 M12.859 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 Hyperlipidemia 00590445 E78.5 Vulval and /or perineal noninflammatory disorders 839643710 N90.9 Adult heal th examination 535277483 Z00.[id number] [place] [address] 09/01/2023 10:23:16 09/01/2023 13:28:10 Vertigo 197656215 R42 Impacted c erumen of bilateral ears 4931200812 454215 H61.23 [id number] LOLLY CORTEZ MD [facility] [address] [place] [address] 11/26/2023 07:26:08 11/26/2023 08:10:59 Screening mammography 53666974 Z12.31 Adjustment disorder 1722 6007 F43.20 Asthma 938304533 J45.90 9 Essential hypertension 99093522 I10 Guttate psoriasis 230274 00 L40.4 Cardiomyopathy 57518125 I10 Hyperlipidemia 30739773 E78.5 Prediabetes 499884480 R7 3.03 Health Concerns Section Related Observation LastModified by Organization Detai ls LastModified Time None Recorded Concern Status LastModified by Organization Details LastModified Time None Recorded Advance Directives Directive None Recorded Payers Encounter Date Sequence Insurance Name Policy Number Policy Elma Covered Member ID Lema Member ID Guarantor Name 05/21/2023 1 [place] - [place]PO) [id number] Luna Mott [id number] Luna Mott 09/01/2023 1 [place]) [id number] Luna Mott [id number] Luna Lunaslin 11/26/2023 1 [place] - [place]) [id number] Luna Lunaslin [id number] Luna Mott Notes Date Note Type Note Provider Name and Address Organization Details Recorded Time 05/21/2023 text/html Thais here today for an annual wellness exam MD [address], [place], [address], [facility]. 05/24/2023 18:32:35 09/01/2023 text/html Luna [...] it. JESSICA INGRAM PA-C [address], [place], [address], [facility]. 09/01/2023 13:55:07 11/26/2023 text/html Thais here today for follow-up of cardiomyopathy, obesity MD [address], [place], [address], [facility]. 11/28/2023 09:26:44 OBGyn Episode No OBEpisode recorded.
--- OUTSIDE RECORDS SUMMARY | 2024-02-25 11:08 | XMS_ITS | Encounter Summary ---
Author Organization [facility] [place] [address] Care Team Providers Care Ase Certified Technician Name Role Phone Lolly Oliveira MD Primary Care Provider [phone] Encounter Details Date Type Department Care Team (Latest Contact Info) Description 01/16/2024 10:00 AM EST - 01/16/2024 11:59 PM EST Hospital Encounter Non-Invasive [place] [address] Discharge Disposition: Home Social History Tobacco Use Types Packs/Day Years Used Date Smoking Tobacco: Never Alcohol Use Standard Drinks/Week Comments Not Currently 0 (1 standard drink = 0.6 oz pur e alcohol) [facility] Inpatient Questions Answer Date Recorded Does Anyone [...] with spacer fluticasone propionate (Flonase) 50 mcg/actuation [place], Suspension 1 spray by Each Nare route daily as needed. documented as of this encounter Plan of Treatment Upcoming Encounters Date Type Department Care Team (Late st Contact Info) Description 04/15/2024 10:00 AM EST Hospital Encounter Non-Invasive [place] [address] Arrived documented as of this encounter Procedures [...] on filedocumented in this encounter Care Teams Ase Certified Technician Relationship Specialty Start Date End Date Lolly Oliveira MD [address] [place] [address] PCP - General 07/17/13 documented as of this encounter
--- OUTSIDE RECORDS SUMMARY | 2024-02-25 11:08 | XMS_ITS | Encounter Summary ---
Author Organization [facility] Address [address] [place] [address] Care Team Providers Care Big Data Hadoop Developer Name Role Phone Lolly Oliveira MD Primary Care Provider [phone] Encounter Details Date Type Department Care Team (Late st Contact Info) Description 06/16/2012 Results Only [facility] - [facility] [address] [place], [place] [id number] Lolly Oliveira MD [address] [place], [place] [id number] Social History Tobacco Use Types Packs/Day Years [...] ? JING ALVARENGA ? Accession #: ? [id number] : ? 1950 (Age: 61) ??F ?Collect [...] ORDERABLES Final Resu lt [facility] [address] [place] [address] documented in this encounter Visit Diagnoses Not on filedocumented in this encounter Care Teams Big Data Hadoop Developer Relationship Specialty Start Date End Date Lolly Oliveira MD [address] [place] [address] PCP - General 11/13/08 documented as of this encounter
--- OUTSIDE RECORDS SUMMARY | 2024-02-25 11:08 | XMS_ITS | Encounter Summary ---
Author Organization [facility] [place] [address] Care Team Providers Care Financial Aid Officer Name Role Phone Lolly Oliveira MD Primary Care Provider [phone] Encounter Details Date Type Department Care Team (Late st Contact Info) Description 05/18/2023 Telephone Dermatology at [address] [address] Nora Meredith LPN Social History [...] [facility] Encounter Non-Invasive [place] [address] Arrived documented as of this encounter Visit Diagnoses Not on filedocumented in this encounter Care Teams Financial Aid Officer Relationship Specialty Start Date End Date Lolly Oliveira MD [address] [place] [address] PCP - General 07/17/13 documented as of this encounter
--- OUTSIDE RECORDS SUMMARY | 2024-02-25 11:09 | XMS_ITS | Encounter Summary ---
[place] [address] Care Team Providers Care Custom Studio Coordinator Name Role Phone Lolly Oliveira MD Primary Care Provider [phone] Encounter Details Date Type Department Care Team (Late st Contact Info) Description 04/09/2022 Refill Dermatology at [address] [address] Nora Meredith, PLANT ELECTRICIAN Social History Tobacco Use Types Packs/Day Years [...] [facility] Hospital Encounter [place] [address] Arrived documented as of this encounter Visit Diagnoses Not on filedocumented in this encounter Care Teams Custom Studio Coordinator Relationship Specialty Start Date End Date Lolly Oliveira MD [address] [place] [address] PCP - General 07/17/13 documented as of this encounter
--- OUTSIDE RECORDS SUMMARY | 2024-02-25 11:09 | XMS_ITS | Encounter Summary ---
Author Organization [facility] [place] [address] Care Team Providers Care Rubber Chemist Name Role Phone Lolly Oliveira MD Primary Care Provider [phone] Reason for Visit * Reason Onset Date Comments Other 07/24/2022 Implanted Cardia c Device Teaching/Education Encounter Details Date Type Department Care Team (Late st Contact Info) Description 07/24/2022 Notes Only Cardiology at [address] [phone] Letha Arroyo Other (Implanted Cardiac Device Teaching/Education) [...] to call the Cardiac Device Clinic at [phone] with any questions. Plan: Post op check: [...] [facility] Hospital Encounter Non-Invasive [place] [address] Arrived documented as of this encounter Visit Diagnoses Not on filedocumented in this encounter Care Teams Rubber Chemist Relationship Specialty Start Date End Date Lolly Oliveira MD [address] [place] [address] PCP - General 07/17/13 documented as of this encounter
--- OUTSIDE RECORDS SUMMARY | 2024-02-25 11:09 | XMS_ITS | Encounter Summary ---
Author Organization [facility] [place] [address] Care Team Providers Care Glue Bone Drier Name Role Phone Lloly Oliveira MD Primary Care Provider [phone] Reason for Visit * Reason Comments Psoriasis Encounter Details Date Type Department Care Team (Late st Contact Info) Description 04/09/2022 1:45 PM EST Office Visit Dermatology at [address] [address] Clay Ramírez MD [address] [facility] [place] [address] Psoriasis, guttate Social History Tobacco Use Types [...] AM EST Hospital Encounter Non-[place] [address] Arrived documented as of this encounter Visit Diagnoses Diagnosis Psoriasis, guttate Other psoriasis documented in this encounter Care Teams Glue Bone Drier Relationship Specialty Start Date End Date Lolly Oliveira MD [address] [place] [address] PCP - General 07/17/13 documented as of this encounter
--- OUTSIDE RECORDS SUMMARY | 2024-02-25 11:09 | XMS_ITS | Encounter Summary ---
Author Organization [facility] [address] Care Team Providers Care Assurance Manager Insurance Name Role Phone Lolly Oliveira MD Primary Care Provider [phone] Encounter Details Date Type Department Care Team (Latest Contact Info) Description 07/20/2013 9:26 AM EDT - 07/20/2013 11:59 PM EDT Hospital [place] [address] CLINIC, Lolly So MD [address] [place], [place] [id number] Mammographic microcalcification Discharge Disposition: Home Social History [...] AM EST Hospital Encounter Non-[place] [address] Arrived documented as of this encounter Procedures [...] not layer and, therefore, are not customer service representative of milk of calcium. Again, [...] not layer and, therefore, are not customer service representative of milk of calcium. Again, these have an amorphous andpunctate appearance and remain indeterminate. Stereotactic guided biopsy isrecommended. Alia Fraire MD IMG MAMMO ORDERABLES documented in this encounter Visit Diagnoses Diagnosis Mammographic microcalcification documented in this encounter Care Teams Assurance Manager Insurance Relationship Specialty Start Date End Date Lolly Oliveira MD [address] [place] [address] PCP - General 07/17/13 documented as of this encounter
--- OUTSIDE RECORDS SUMMARY | 2024-02-25 11:09 | XMS_ITS | Encounter Summary ---
Author Organization [facility] [place] [address] Care Team Providers Care Court Interpreter Name Role Phone Lolly Oliveira MD Primary Care Provider [phone] Encounter Details Date Type Department Care Team (Latest Contact Info) Description 01/21/2023 10:00 AM EST - 01/21/2023 11:59 PM EST Hospital Encounter [place] [phone] Discharge Disposition: Home Social History Tobacco Use [...] with spacer fluticasone propionate (Flonase) 50 mcg/actuation [place], Suspension 1 spray by Each Nare [...] AM EST Hospital Encounter Non-[place] [address] Arrived documented as of this [...] filedocumented in this encounter Care Teams Court Interpreter Relationship Specialty Start Date End Date Lolly Oliveira MD [address] [place] [address] PCP - General 07/17/13 documented as of this encounter
--- OUTSIDE RECORDS SUMMARY | 2024-02-25 11:09 | XMS_ITS | Encounter Summary ---
Author Organization [facility] [address] Care Team Providers Care High School Director Name Role Phone Lolly Oliveira MD Primary Care Provider [phone] Reason for Visit * Reason Onset Date Comments Pre Procedure Call 07/01/2022 Encounter Details Date Type Department Care Team (Late st Contact Info) Description 07/01/2022 Telephone Cardiology at [address] [phone] Rosenda Sutton RN Pre Procedure Call Social History Tobacco Use Types Packs/Day Years Used Date Smoking Tobacco: Never Sex and Gender Information Value Date Recorded Sex Assigned at Not on file Gender Identity Not on file Sexual Orientation Not on file documented as of this encounter Miscellaneous Notes * Telephone Encounter - Rosenda Sutton RN - 07/01/2022 9:30 AM EDTSummary: Pre Procedure Call: FACILITY MAINTENANCE TECHNICIAN implant EP [employer]EN [employer]OX MAKER COORDINATION CHECKLIST Patient Name: Luna Mott Patient Performing Waxer: Lalti Mcmahon Referring Provider: Lolly Oliveira Date of Procedure: 07/23/22 Arrival Time/ Case Time: 12:00 pm / 1:00 pm Check In Location: Director Of Patient Safety Desk 4W Date Patient was Called: 07/01/22 Procedure: FACILITY MAINTENANCE TECHNICIAN Company: [employer] Type: FACILITY MAINTENANCE TECHNICIAN-D Laterality: LEFT Orders: Yes Lab Orders: [...] overnight , understands that they will need hyster driver on day of discharge Notified pt that Goff catheter may be placed on day of procedure depending on type & duration of case. documented in this encounter Plan of Treatment Upcoming Encounters Date Type Department Care Team (Late st Contact Info) Description 04/15/2024 10:00 AM [facility] Hospital Encounter Non[place] [address] Arrived documented as of this encounter Visit Diagnoses Not on filedocumented in this encounter Care Teams High School Director Relationship Specialty Start Date End Date Lolly Oliveira MD [address] [place] [address] PCP - General 07/17/13 documented as of this encounter
--- OUTSIDE RECORDS SUMMARY | 2024-02-25 11:09 | XMS_ITS | Encounter Summary ---
[place] [address] Care Team Providers Care Queen Producer Name Role Phone Lolly Oliveira MD Primary Care Provider [phone] Encounter Details Date Type Department Care Team [...] AM EST Hospital Encounter Non-Invasive [place] [address] Arrived documented as of this encounter Visit Diagnoses Not on filedocumented in this encounter Care Teams Queen Producer Relationship Specialty Start Date End Date Lolly Oliveira MD [address] [place] [address] PCP - General 07/17/13 documented as of this encounter
--- OUTSIDE RECORDS SUMMARY | 2024-02-25 11:09 | XMS_ITS | Encounter Summary ---
Author Organization [facility] [address] Care Team Providers Care Window Sash Installer Name Role Phone Lolly Oliveira MD Primary Care Provider [phone] Reason for Visit * Reason Comments Follow-up Encounter Details Date Type Department Care Team (Late st Contact Info) Description 07/02/2022 8:00 AM EDT Office Visit Dermatology at [address] [phone] Clay Ramírez MD [address] [facility] [place] [address] Psoriasis, guttate Social History Tobacco Use Types [...] [place] [facility] Encounter Non-[place] [address] Arrived documented as of this encounter Visit Diagnoses Diagnosis Psoriasis, guttate Other psoriasis documented in this encounter Care Teams Window Sash Installer Relationship Specialty Start Date End Date Lolly Oliveira MD [address] [place] [address] PCP - General 07/17/13 documented as of this encounter
--- OUTSIDE RECORDS SUMMARY | 2024-02-25 11:09 | XMS_ITS | Encounter Summary ---
[place] [address] Care Team Providers Care Interventional Radiology Technologist Name Role Phone Lolly Oliveira MD Primary Care Provider [phone] Encounter Details Date Type Department Care Team [...] AM EST Hospital Encounter Non[place] [address] Arrived documented as of this encounter Visit Diagnoses Not on filedocumented in this encounter Care Teams Interventional Radiology Technologist Relationship Specialty Start Date End Date Lolly Oliveira MD [address] [place] [address] PCP - General 07/17/13 documented as of this encounter
--- OUTSIDE RECORDS SUMMARY | 2024-02-25 11:09 | XMS_ITS | Encounter Summary ---
Author Organization [facility] [address] Care Team Providers Care Healthcare Administration Internship Name Role Phone Lolly Oliveira MD Primary Care Provider [phone] Encounter Details Date Type Department Care Team (Latest Contact Info) Description 07/18/2013 Orders [place] [phone] Alia Fraire MD Mammographic microcalcification (Primary Dx) Social History Tobacco [...] [facility] Hospital Encounter Non[place] [phone] Arrived documented as of this encounter Results * Mammo Specimen Imaging During Biopsy (07/26/2013 11:58 AM EDT) Anatomical Region Laterality Modality Breast N/A Mammography 07/26/2013 11:5 8 AM EDT Impressions 07/28/2013 5:26 PM EDT Impression: concordant Recommendation: f/u mammography in one year. ??As discussed with Ms. Lunaslin by Dr. Christian on 07/28/13. ?? I [...] are present on specimen digital X-ray. A [employer] Eviva-Stereo 13 Cylinder marker clip was placed. [...] calcifications are present on specimendigital X-ray. A [employer] Eviva-Stereo 13 Cylinder marker clip was placed. [...] does not layer and, therefore, are not development representative of milk of calcium. Again, these [...] does not layer and, therefore, are not development representative of milk of calcium. Again, these have an amorphous andpunctate appearance and remain indeterminate. Stereotactic guided biopsy isrecommended. Alia Fraire MD IMG MAMMO ORDERABLES documented in this encounter Visit Diagnoses Diagnosis Mammographic microcalcification- Primary Mammographic microcalcification Mammographic microcalcification Mammographic microcalcification Mammographic microcalcification documented in this encounter Care Teams Healthcare Administration Internship Relationship Specialty Start Date End Date Lolly Oliveira MD [address] [place] [address] PCP - General 07/17/13 documented as of this encounter
--- OUTSIDE RECORDS SUMMARY | 2024-02-25 11:09 | XMS_ITS | Encounter Summary ---
Author Organization [facility] [place] [address] Care Team Providers Care Select Banker Name Role Phone Lolly Oliveira MD Primary Care Provider [phone] Reason for Visit * Auth/Cert (Routine) Specialty Diagnoses / Procedures Referred By Contac t Referred To Contact Diagnoses Left bundle-branch block, unspecified Other cardiomyopathies Left bundle branch block [I44.7]Nonischemic cardiomyopathy [I42.8] Procedures PRG CATH PLMT LEFT HEART CATH & ARTS W/INJ & ANGIO IMG S&I ELECTROPHYSIOLOGY PROCEDURE Lalit Mcmahon MD [facility] [place] [address] [facility] Referral ID Status Reason Start Date Expiration Date Visits Re quested Visits Authorized [id number] 1 1 Encounter Details Date Type Department Care Team (Late st Contact Info) Description 07/23/2022 1:00 PM EDT - 07/23/2022 5:30 PM EDT Surgery [place] [address] Lalit Mcmahon MD [facility] [place] [address] ELECTROPHYSIOLOGY PROCEDURE Social History Tobacco Use Types Packs/Day Years Used Date Smoking Tobacco: Never Tobacco Cessation:Counseling Given: Not Answered Alcohol Use Standard Drinks/Week Comments Not Currently 0 (1 standard drink = 0.6 oz pur e alcohol) [facility] Inpatient Questions Answer Date Recorded Does [...] Luna Mott Patient Age: 71 y.o. Language: Amharic Race: White Ethnicity: Not nor Admit date: 07/23/2022 Discharge date and time: 07/24/22 Attending Physician: Lalit Mcmahon MD Discharge Physician: Lalit Mcmahon MD Follow-up Recommendations for Providers: - s/p ELECTRICAL INSTRUMENT TECHNICIAN-D implant - post implant QRS 130 ms - reviewed post-implant instructions - no medication changes - Follow up in device clinic for wound/device check in ~10 days ([facility]) Inpatient Provider Contact Information: Cardiac Electrophysiology - Discharge Diagnoses (Hospital Problems) and Secondary Diagnoses (Chronic Problems): Active Hospital Problems Diagnosis ??? HFrEF (heart failure with reduced ejection fraction) Resolved Hospital Problems No resolved problems to display. Active Non-Hospital Problems Diagnosis ??? Dermatofibroma ??? Nevus ??? Solar lentigo Operations/Major Procedures: 07/23/22: [facility] ELECTRICAL INSTRUMENT TECHNICIAN-D implant History of Presentation: 71 y.o. female with a history of HFrEF, LBBB, QRS >150, NYHA II who is POD#1 of ELECTRICAL INSTRUMENT TECHNICIAN-D implant ([employer]). Hospital Course: Elective admission for ELECTRICAL INSTRUMENT TECHNICIAN-D implant Admitted post-implant for pain management, [...] (heart failure with reduced ejection fraction) [I50.20] ELECTRICAL INSTRUMENT TECHNICIAN-D implant Admission Condition: good Indication for [...] g Refills: 3 fluticasone propionate 50 mcg/actuation Gabriels, Suspension Commonly known as: Flonase 1 spray [...] incision. Make sure to use a cloth tester quality (such as a towel) in between the [...] F. The office scheduling phone number is [phone]. ARM MOVEMENT RESTRICTIONS POST-IMPLANT - Do not [...] please call the Cardiac ElectrophysiologyTriage Nurse at [phone], option 3. General Instructions None Discharge References/Attachments [...] incision. Make sure to use a cloth tester quality (such as a towel) in between the [...] F. The office scheduling phone number is [phone]. ARM MOVEMENT RESTRICTIONS POST-IMPLANT - Do not [...] please call the Cardiac ElectrophysiologyTriage Nurse at [phone], option 3. documented in this encounter Medications [...] with spacer fluticasone propionate (Flonase) 50 mcg/actuation [place], Suspension 1 spray by Each Nare route [...] Cardiac Electrophysiology Post-Implant Device Interrogation Luna Mott [id number] 07/24/2022 History: Luna Mott is a 71 y.o. female with a history of HFrEF, LBBB, QRS >150, NYHA II who is POD#1 of ELECTRICAL INSTRUMENT TECHNICIAN-D implant ([employer]). Overall feels well this morning. Ready [...] WOB Neuro- A&Ox3 Device Interrogation: Data ?? Central Office Mechanic Model # Serial # Generator [employer] [id number] Atrial Lead [employer] [id number] RV Lead [employer] 0672 197572 LV Lead [employer] 4674 [id number] ?? Diagnostics Pacing Mode: DDD 60-130 Underlying Rhythm: [place] Atrial Episodes: None Ventricular Episodes: None FINAL PROGRAMMING: Pacing: Mode Lower rate (ppm) Upper rate (ppm) ?? DDD 60 130 VF: Rate (bpm) #Antitachycardia pacing First shock energy (J) ?? 200 Quick convert 41 VT: 170 Monitor only Monitor only ? Battery and Leads Impedances (ohms) Sensing (mV) Thresholds HV RA RV LV RA RV LV RA RV LV 73 276 162 0339 (LVa) 7.7 13.1 >25 0.4V @ 0.4 ms 0.4V @ 0.4 ms 0.5 V @ 1.0 ms POD#1 CXR: All leads in nominal positioning Impression: 71 y.o. female who is s/p ELECTRICAL INSTRUMENT TECHNICIAN-D implant for LBBB, NYHA II, HFrEF. - Appropriate device function post-implant - CXR negative for post-implant complications - Changed sensed AV delay from 130 to 110 Plan: 1. Reviewed standard post-implant discharge instructions (see patient instructions) including arm restrictions, wound care, bathing, and driving 2. No medication changes. 3. Follow up in device clinic for wound/device check in ~10 days ([facility]) Fadi Nunez MD 07/24/2022 Pager: [phone] I met with the patient today and [...] agreement. ? Dr. Lalit Mcmahon, electrophysiology attending ([id number]) * Zaria Wright RN - 07/23/2022 8:28 [...] HF, QRS > 150 ms presents for ELECTRICAL INSTRUMENT TECHNICIAN-D placement. ROS: Denies recent fevers or [...] 0.9) flush 5 mL 5 mL Intravenous [id number] ramos MD ??? sodium chloride 0.9 % [...] HF, QRS > 150 ms presents for ELECTRICAL INSTRUMENT TECHNICIAN-D placement. Backup would be LBBAP lead. Antibiotics: cefazolin Rationales for, intended benefits and potential risk of planned procedures reviewed. The patient indicated understanding and agreement with the plan. Informed consent signed. Procedure checklist completed. Fadi Nunez MD Cardiac Electrophysiology Fellow [facility] Pager [phone] 07/23/2022 I met with the patient today [...] agreement. ? Dr. Lalit Mcmahon, electrophysiology attending ([id number]) documented in this encounter Miscellaneous Notes * Brief Op Note - Lalit Mcmahon MD - 07/23/2022 4:04 PM EDT Brief Operative Note Patient Name: Luna Mott : [id number] MR#: [id number] Case Date: 07/23/2022 Surgeon: Surgeon(s) and Role: [...] AM EST Hospital Encounter [place] [address] Arrived Scheduled Orders Name Type Priority Associated Diagnoses Orde r Schedule EKG 12 Lead ECG Routine Cardiac resynchronization therapy defibrillator (ELECTRICAL INSTRUMENT TECHNICIAN-D) in place One Time for 1 [...] (Bezet) 522 ms MUSE SYSTEM Calculated R [place] 78 degrees MUSE SYSTEM Calculated T [place] -71 degrees MUSE SYSTEM INTERPRETATION AV dual-paced [...] questions please contact the health skin care specialist that requested your imaging first. ? Electronically signed by: Kwame Vargas MD, [facility] ([phone]), at 07/24/2022 6:43 AM Narrative 07/24/2022 6:43 [...] have questions please contactthe health skin care specialist that requested your imaging first. Electronically signed by: Kwame Vargas MD, [facility]([phone]), at 07/24/2022 6:43 AM Lalit Mcmahon MD IMG DX ORDERABLES * ELECTROPHYSIOLOGY PROCEDURE (07/23/2022 1:11 PM EDT) Anatomical Region Laterality Modality Other Narrative 07/23/2022 4:24 PM EDT Table formatting from the original result was not included. BIVENTRICULAR ICD IMPLANTATION Correspondence Transcriber: Lalit Mcmahon MD Fellow: Fadi Nunez MD [...] the entire procedure. LEAD AND GENERATOR DATA: Central Office Mechanic Model # Serial # Generator [employer] [id number] Atrial Lead [employer] [id number] [id number] RV Lead [employer] 0672 140283 LV Lead [employer] [id number] [id number] PACE/SENSE DATA: Sensed wave (mV) Threshold (V) [...] (cGycm2) 300 CONCLUSIONS: Successful implantation of a [employer] biventricular ICD for primary prevention and treatment of symptoms related to congestive heart failure. Follow up in EP clinic in 1-2 months. Procedures performed: new ICD system ( cpt 89621-C2); implant LV lead at time of ICD insertion (cpt 84693) I have read, edited and approve of this report: Lalit Mcmahon MD [facility] Cardiac Electrophysiology 07/23/2022 4:22 PM Procedure Note Lalit Mcmahon MD - 07/23/2022 BIVENTRICULAR ICD IMPLANTATION Correspondence Transcriber: Lalit Mcmahon MD Fellow: Fadi Nunez MD [...] in the entireprocedure. LEAD AND GENERATOR DATA: Central Office Mechanic Model # Serial # Generator [employer] [id number] Atrial Lead [employer] 7841 [id number] RV Lead [employer] 0672 984146 LV Lead [employer] 4674 [id number] PACE/SENSE DATA: Sensed wave (mV) Threshold (V) [...] (cGycm2) 300 CONCLUSIONS: Successful implantation of a [employer] biventricular ICD forprimary prevention and treatment of symptoms related to congestive heartfailure. Follow up in EP clinic in 1-2 months. Procedures performed: new ICD system ( cpt 19522-G1); implant LV lead attime of ICD insertion (cpt 72633) I have read, edited and approve of this report: Lalit Mcmahon MD S Cardiac Electrophysiology 07/23/2022 4:22 PM Lalit Mcmahon MD EP PROCEDURE ORDERAB LES * POCT Glucose (07/23/2022 12:54 PM EDT) [facility] Signature Glucose, POC 83 65 - 199 mg/dL [facility] Comment: Supplemental ranges: <140 mg/dL before meals <180 mg/dL all other times of the day Blood 07/23/2022 12:5 4 PM EDT 07/23/2022 12:54 PM EDT Lalit Mcmahon MD POINT OF CARE TEST O RDERABLES Performing Organization Address City/[facility]/ZIP Co de Phone Number [facility] [address] * EKG 12 Lead (07/23/2022 12:33 PM EDT) Ventricular rate 72 BPM MUSE SYSTEM Atrial Rate 72 BPM MUSE SYSTEM P-R Interval 158 ms MUSE SYSTEM QRS Duration 176 ms MUSE SYSTEM Q-T Interval 458 ms MUSE SYSTEM QTC Calculated (Bezet) 501 ms MUSE SYSTEM Calculated P [place] 34 degrees MUSE SYSTEM Calculated R [place] 12 degrees MUSE SYSTEM Calculated T [place] -173 degrees MUSE SYSTEM INTERPRETATION Normal sinus rhythm Left bundle branch block Abnormal ECG No previous ECGs available Confirmed by MD Salome, Lalit ([id number]) on 07/23/2022 1:19:03 PM MUSE SYSTEM 07/23/2022 12:3 3 PM EDT 07/23/2022 1:19 PM EDT Lalit Mcmahon MD ECG ORDERABLES Performing Organization Address [facility]/ZIP Co de Phone Number MUSE SYSTEM * Differential, Automated (07/23/2022 11:55 AM EDT) Neutrophil % 62.6 % [facility] Neutrophil Absolute 4.14 1.70 - 6.10 x10(3)/[facility] Lymph % 27.0 % [facility] Lymphocytes Abs 1.8 0.9 - 3.2 x10(3)/[facility] Monocyte % 7.3 % [facility] Monocyte Abs 0.5 0.3 - 0.9 x10(3)/[facility] Eos % 2.3 % [facility] Eosinophils Abs 0.2 0.0 - 0.4 x10(3)/[facility] Basophil % 0.6 % [facility] Baso Absolute 0.0 0.0 - 0.1 x10(3)/[facility] Immature Gran % 0.20 % [facility] Comment: Immature granulocytes(IG's)percentage and absolute count will include metamyelocytes, myelocytes, and promyelocytes. Blood smears from CBCs yielding IG's will be scanned manually for concordance. If this scan disagrees with the automated IG or if promyelocytes are noted, a manual differential will be performed. Immature Gran Absolute 0.01 0.00 - 0.04 x10(3)/[facility] Blood 07/23/2022 11:5 5 AM EDT 07/23/2022 12:07 PM EDT Narrative Resulting Agency Comment Spec In Lab Lalit Mcmahon MD HEMATOLOGY ORDERABLE S [facility] [place] [address] * Hemogram (07/23/2022 11:55 AM EDT) White Blood Cell 6.6 4.0 - 9.5 x10(3)/[facility] Red Blood Cell 4.50 4.00 - 5.21 x10(6)/[facility] Hemoglobin 13.7 11.7 - 15.5 g/dL [facility] Hematocrit 42.5 35.7 - 45.8 % [facility] Mean Cell Volume 94.4 82.6 - 94.4 fL [facility] Mean Cell Hemoglobin 30.4 27.1 - 32.0 pg [facility] Mean Cell Hemoglobin Concentration 32.2 31.7 - 35.0 g/dL [facility] Platelet 193 145 - 357 x10(3)/[facility] RDW Standard Deviation 45.5 37.0 - 46.0 fL [facility] RDW coefficient of variation 13.2 11.5 - 14.1 % [facility] Mean Platelet Volume 9.5 7.6 - 12.9 fL [facility] NRBC% auto 0.0 % [facility] NRBC Absolute 0.000 0.000 - 0.000 x10(3)/[facility] Blood 07/23/2022 11:5 5 AM EDT 07/23/2022 12:07 PM EDT Narrative Resulting Agency Comment Spec In Lab Lalit Mcmahon MD HEMATOLOGY ORDERABLE S [facility] [place] [address] * (ABNORMAL) BMP w/fasting Glucose (07/23/2022 11:55 AM EDT) Glucose Fasting 110(H) 65 - 99 mg/dL [facility] Comment: ?Fasting* Glucose Interpretive Criteria Normal [...] of Diabetes Mellitus, Position Statement from the [place] [employer]. ??Diabetes Care, Volume 33, Supplement 1, Mar 2009 Blood Urea Nitrogen 23(H) 8 - 18 mg/dL [facility] Creatinine 1.07 0.70 - 1.20 mg/dL [facility] Sodium 141 135 - 145 mmol/L [facility] Potassium 4.8 3.5 - 5.0 mmol/L [facility] Comment: Please note: ??Patients with WBC [...] - 15 mmol/L [facility] Calcium 9.7 8.5 - 10.5 mg/dL [facility] Est Glomerular Filtration Rate 55(L) >=60 [...] Mcmahon MD CHEMISTRY ORDERABLES Performing Organization Address [facility] Co de Phone Number [facility] [place] [address] * Prothrombin Time (07/23/2022 11:55 AM EDT) Prothrombin Time 11.7 9.4 - 12.5 sec [facility] International Normalization Ratio 1.0 [facility] Comment: An INR <2.0 indicates adequate [...] MD HEMATOLOGY ORDERABLE S Performing Organization Address City/[facility] Co de Phone Number [facility] [place] [address] documented in this encounter Visit Diagnoses Diagnosis HFrEF (heart failure with reduced ejection fraction)- Primary Left bundle branch block Other left bundle branch block Nonischemic cardiomyopathy Other primary cardiomyopathies Cardiac resynchronization therapy defibrillator (ELECTRICAL INSTRUMENT TECHNICIAN-D) in place Left bundle branch block [...] Routine documented in this encounter Care Teams Select Banker Relationship Specialty Start Date End Date Lolly Oliveira MD [address] [place] [address] PCP - General 07/17/13 documented as of this encounter
--- OUTSIDE RECORDS SUMMARY | 2024-02-25 11:09 | XMS_ITS | Encounter Summary ---
Author Organization [facility] [place] [address] Care Team Providers Care Medical Manager Name Role Phone Lolly Oliveira MD Primary Care Provider [phone] Reason for Visit * Reason Comments Skin Check Encounter Details Date Type Department Care Team (Late st Contact Info) Description 11/23/2014 10:00 AM EDT Office Visit Dermatology at [address] [address] Clay Ramírez MD [address] [facility] [place] [address] Dermatofibroma; Nevus; Solar lentigo Discharge Disposition: Home [...] [facility] Hospital Encounter Non-Invasive [place] [address] Arrived documented as of this encounter Visit Diagnoses Diagnosis Dermatofibroma Benign neoplasm of skin, site unspecified Nevus Benign neoplasm of skin, site unspecified Solar lentigo Other dyschromia documented in this encounter Care Teams Medical Manager Relationship Specialty Start Date End Date Lolly Oliveira MD [address] [place] [address] PCP - General 07/17/13 documented as of this encounter
--- OUTSIDE RECORDS SUMMARY | 2024-02-25 11:09 | XMS_ITS | Encounter Summary ---
Author Organization [facility] Address [facility] [address] Care Team Providers Care Environmental Technical Officer Name Role Phone Lolly Oliveira MD Primary Care Provider [phone] Encounter Details Date Type Department Care Team (Late st Contact Info) Description 07/16/2022 Telephone Cardiology at [address] [phone] Lalit Mcmahon MD [facility] [place] [address] Social History Tobacco Use Types Packs/Day Years [...] her nonischemic cardiomyopathy. She is scheduled for SKI GUIDE-D implantation next week and looks forward to the procedure. We will see each other next week. Lalit Mcmahon MD [facility] Cardiac Electrophysiology 07/16/2022 8:52 AM documented in this encounter Plan of Treatment Upcoming Encounters Date Type Department Care Team (Late st Contact Info) Description 04/15/2024 10:00 AM EST Hospital Encounter Non-Invasive [place] [address] Arrived documented as of this encounter Visit Diagnoses Not on filedocumented in this encounter Care Teams Environmental Technical Officer Relationship Specialty Start Date End Date Lolly Oliveira MD [address] [place] [address] PCP - General 07/17/13 documented as of this encounter
--- OUTSIDE RECORDS SUMMARY | 2024-02-25 11:09 | XMS_ITS | Encounter Summary ---
Author Organization [facility] [place] [address] Care Team Providers Care General Dentist/Owner Name Role Phone Lolly Oliveira MD Primary Care Provider [phone] Encounter Details Date Type Department Care Team (Latest Contact Info) Description 04/21/2023 10:00 AM EST - 04/21/2023 11:59 PM EST Hospital Encounter [place] [phone] Discharge Disposition: Home Social History Tobacco Use [...] spacer fluticasone propionate (Flonase) 50 mcg/actuation [place], Suspension 1 spray by Each Nare [...] AM EST Hospital Encounter [place] [address] Arrived documented as of this [...] filedocumented in this encounter Care Teams General Dentist/Owner Relationship Specialty Start Date End Date Lolly Oliveira MD [address] [place] [address] PCP - General 07/17/13 documented as of this encounter
--- OUTSIDE RECORDS SUMMARY | 2024-02-25 11:09 | XMS_ITS | Encounter Summary ---
Author Organization [facility] [place] [address] Care Team Providers Care Time Study Technologist Name Role Phone Lolly Oliveira MD Primary Care Provider [phone] Encounter Details Date Type Department Care Team (Late st Contact Info) Description 05/18/2023 Refill Dermatology at [address] [address] Nora Meredith LPN Social [...] AM EST Hospital Encounter Non-[place] [address] Arrived documented as of this encounter Visit Diagnoses Not on filedocumented in this encounter Care Teams Time Study Technologist Relationship Specialty Start Date End Date Lolly Oliveira MD [address] [place] [address] PCP - General 07/17/13 documented as of this encounter
--- OUTSIDE RECORDS SUMMARY | 2024-02-25 11:09 | XMS_ITS | Encounter Summary ---
Author Organization [facility] [place] [address] Care Team Providers Care Spiral Spring Winder Name Role Phone Lolly Oliveira MD Primary Care Provider [phone] Encounter Details Date Type Department Care Team (Late st Contact Info) Description 03/15/2023 Telephone Cardiology at [address] [phone] Saranya Ma Social History Tobacco Use Types [...] to have an echo done at [facility] prior to her appt withidm there on 05/12/23. Message sent to Dr. Mcmahon asking him to put order in if he would like her to have this done. Saranya Ma Sr. Clinical Procedure Glue Jointer Feeder/Station Operator documented in this encounter Plan of Treatment Upcoming Encounters Date Type Department Care Team (Late st Contact Info) Description 04/15/2024 10:00 AM EST Hospital Encounter Non[place] [address] Arrived documented as of this encounter Visit Diagnoses Not on filedocumented in this encounter Care Teams Spiral Spring Winder Relationship Specialty Start Date End Date Lolly Oliveira MD [address] [place] [address] PCP - General 07/17/13 documented as of this encounter
--- OUTSIDE RECORDS SUMMARY | 2024-02-25 11:09 | XMS_ITS | Encounter Summary ---
Author Organization [place] [address] Care Team Providers Care Valver Name Role Phone Lolly Oliveira MD Primary Care Provider [phone] Reason for Referral * Diagnostic Test (Routine) - Closed Specialty Diagnoses / Procedures Referred By Contac t Referred To Contact Radiology Diagnoses Left bundle branch block Nonischemic cardiomyopathy Procedures MRI Cardiac Morphology Function With Flow Velocity Quantification [facility] Contrast MRI Cardiac Morphology Function wwo Contrast Lalit Mcmahon MD [facility] [place] [address] [place] [address] Referral ID Status Reason Start Date Expiration Date V isits Requested Visits Authorized [id number] Closed Specialty Service Requested 05/06/2022 11/07/2023 2 1 Reason for Visit * Diagnostic Test (Routine) - Closed Specialty Diagnoses / Procedures Referred By Contac t Referred To Contact Radiology Diagnoses Left bundle branch block Nonischemic cardiomyopathy Procedures MRI Cardiac Morphology Function With Flow Velocity Quantification o Contrast MRI Cardiac Morphology Function wwo Contrast Lalit Mcmahon MD [facility] [place] [address] [place] [address] Referral ID Status Reason Start Date Expiration Date V isits Requested Visits Authorized [id number] Closed Specialty Service Requested 05/06/2022 11/07/2023 2 1 Encounter Details Date Type Department Care Team (Latest Contact Info) Description 07/14/2022 9:08 AM EDT Hospital Encounter MRI at [facility] [place] [id number] Lalit Mcmahon MD [facility] [address] [place] [address] Left bundle branch block; Nonischemic cardiomyopathy Discharge [...] with spacer fluticasone propionate (Flonase) 50 mcg/actuation [place], Suspension 1 spray by Each Nare route [...] 71 y.o. : 1950 [address] [facility] [id number] Female [phone] (home) No relevant phone numbers on file. Lolly Oliveira MD None Allergies Allergen Reactions ??? Sulfa (Sulfonamide Antibiotics) Date/Time of call: July 07, 2022/11:03 AM/ PREVIOUS MRI SCAN? HEIGHT: WEIGHT: SCHEDULED SCAN: MRI CARDIAC MORPHOLOGY FUNCTION WITH FLOW VELOCITY QUANTIFICATION WWO CONTRAST [[id number]] Order Questions Answers Where will study be performed? [facility] Radiology [120] SUBJECTIVE: Very Claustrophobic [...] ( [place] ) You must have a crude oil driver present when you check in. This patient has been informed that they require a crude oil driver to drive them home after this procedure. In the absence of a crude oil driver, IR will not be able to sedate for your scan. Pt verbalized understanding of these instructions during the pre-procedure education via phone. Yes Name of crude oil driver: Daughter Phone number: PRIOR SCAN DATE/S SEDATION TYPE SUCCESSFUL 07/14/22 MRI Cardiac Morphology Function with Flow Velocity Quantification wwo Contrast Ativan 1mg x 1 dose Pass Revised 08/03/17 documented in this encounter Plan of Treatment Upcoming Encounters Date Type Department Care Team (Late st Contact Info) Description 04/15/2024 10:00 AM [facility] Hospital Encounter Non-Invasive [place] [address] Arrived documented as of this encounter Procedures [...] have questions please contact the health child care director that requested your imaging first. ? Electronically signed by: Greyson Herron MD, [facility] ([phone]), at 07/15/2022 9:53 AM Narrative 07/15/2022 9:53 [...] who have questions please contactthe health child care director that requested your imaging first. [...] mg documented in this encounter Care Teams Valver Relationship Specialty Start Date End Date Lolly Oliveira MD [address] [place] [address] PCP - General 07/17/13 documented as of this encounter
--- OUTSIDE RECORDS SUMMARY | 2024-02-25 11:09 | XMS_ITS | Encounter Summary ---
Author Organization [facility] [place] [address] Care Team Providers Care Pattern Keeper Name Role Phone Lolly Oliveira MD Primary Care Provider [phone] Encounter Details Date Type Department Care Team (Late Contact Info) Description 01/14/2022 Telephone Dermatology at [address] [address] Nora Meredith LPN Social [...] AM EST Hospital Encounter Non-Invasive [place] [address] Arrived documented as of this encounter Visit Diagnoses Not on filedocumented in this encounter Care Teams Pattern Keeper Relationship Specialty Start Date End Date Lolly Oliveira MD [address] [place] [address] PCP - General 07/17/13 documented as of this encounter
--- OUTSIDE RECORDS SUMMARY | 2024-02-25 11:09 | XMS_ITS | Encounter Summary ---
Author Organization [facility] Address [facility] [place] [address] Care Team Providers Care Excavation Laborer Name Role Phone Lolly Oliveira MD Primary Care Provider [phone] Reason for Visit * Auth/Cert (Routine) Specialty Diagnoses / Procedures Referred By Contac t Referred To Contact Diagnoses Left bundle-branch block, unspecified Other cardiomyopathies Left bundle branch block [I44.7]Nonischemic cardiomyopathy [I42.8] Procedures PRG CATH PLMT LEFT HEART CATH & ARTS W/INJ & ANGIO IMG S&I ELECTROPHYSIOLOGY PROCEDURE Lalit Mcmahon MD [facility] [place] [address] [facility] Referral ID Status Reason Start Date Expiration Date Visits Re quested Visits Authorized [id number] 1 1 Encounter Details Date Type Department Care Team (Late st Contact Info) Description 07/23/2022 1:08 PM EDT Anesthesia Event [place] [address] Monae Gonzalez MD [facility] [place] [address] Maria Elena Snyder CRNA [facility] [place] [address] Anesthesia Record Procedure Summary Procedure Name Responsible [...] 1307; median cubital vein (antecubital fossa), right; oajl-dvk-zxotnt catheter system; Anatomical Landmarks; 20 gauge; 07/24/22; [...] 1343; metacarpal vein (top of hand), left; perc-zcg-lrcchj catheter system; Anatomical Landmarks; US Not Used; [...] Summary Date: 07/23/22 Room / Location: [facility] A-LAB ROOM 3 / [facility] EP LABS Anesthesia Start: 1308 Anesthesia Stop: 1633 Procedure: ELECTROPHYSIOLOGY PROCEDURE (Left) Diagnosis: Left bundle branch block Nonischemic cardiomyopathy (Left bundle branch block [I44.7]Nonischemic cardiomyopathy [I42.8]) Providers: Lalit Mcmahon MD Responsible Provider: Monae Gonzalez MD Anesthesia Type: general ASA Status: 4 All Anesthesia Providers: Anesthesiologist: Monae Gonzalez MD; Dominique Sen MD EASEMENT MAN: Maria Eelna Snyder CRNA Vitals Value Taken Time BP [...] and Nonischemic CM (EF 15-20%)who presents for ASSISTANT DIRECTOR OF ADMISSIONS-D. No prior anesthetic records. Pt states that [...] daughter/son and patient who. Plan discussed with EASEMENT MAN. Anesthesia Screening documented in this encounter Plan of Treatment Upcoming Encounters Date Type Department Care Team (Late st Contact Info) Description 04/15/2024 10:00 AM [facility] Hospital Encounter Non-Invasive [place] [address] Arrived documented as of this [...] mg documented in this encounter Care Teams Excavation Laborer Relationship Specialty Start Date End Date Lolly Oliveira MD [address] [place] [address] PCP - General 07/17/13 documented as of this encounter
--- OUTSIDE RECORDS SUMMARY | 2024-02-25 11:09 | XMS_ITS | Encounter Summary ---
Author Organization [facility] [address] Care Team Providers Care Electronic System Engineer Name Role Phone Lolly Oliveira MD Primary Care Provider [phone] Encounter Details Date Type Department Care Team (Latest Contact Info) Description 10/23/2022 10:00 AM EDT - 10/23/2022 11:59 PM EDT Hospital Encounter Non-[place] [address] Discharge Disposition: Home Social History Tobacco Use [...] with spacer fluticasone propionate (Flonase) 50 mcg/actuation [place], Suspension 1 spray by Each Nare route [...] [facility] Hospital Encounter Non-[place] [address] Arrived documented as of this [...] filedocumented in this encounter Care Teams Electronic System Engineer Relationship Specialty Start Date End Date Lolly Oliveira MD [address] [place] [address] PCP - General 07/17/13 documented as of this encounter
--- OUTSIDE RECORDS SUMMARY | 2024-02-25 11:09 | XMS_ITS | Encounter Summary ---
[place] [address] Care Team Providers Care Racetrack Steward Name Role Phone Lolly Oliveira MD Primary Care Provider [phone] Encounter Details Date Type Department Care Team [...] on filedocumented in this encounter Care Teams Racetrack Steward Relationship Specialty Start Date End Date Lolly Oliveira MD [address] [place] [address] PCP - General 07/17/13 documented as of this encounter
--- OUTSIDE RECORDS SUMMARY | 2024-02-25 11:09 | XMS_ITS | Encounter Summary ---
Author Organization [facility] [place] [address] Care Team Providers Care Industrial Locomotive Operator Name Role Phone Lolly Oliveira MD Primary Care Provider [phone] Reason for Visit * Reason Onset Date Comments Post Procedure Call 07/30/2022 Encounter Details Date Type Department Care Team (Late st Contact Info) Description 07/30/2022 Notes Only Cardiology at [address] [phone] Rosenda Sutton, RN Post Procedure Call Social [...] 07/30/2022 9:59 AM EDTSummary: Post Procedure Call: BIOGEOGRAPHER implant EP RN Post-Procedure Note: Date of [...] No DOAC: No Other Anticoagulant: No Beta Maurene (any): Yes Digoxin: No Diltiazem/Verapamil: No Amiodarone: [...] Note: Follow-up Recommendations for Providers: - s/p BIOGEOGRAPHER-D implant - post implant QRS 130 ms [...] [facility] Hospital Encounter [place] [address] Arrived documented as of this encounter Visit Diagnoses Not on filedocumented in this encounter Care Teams Industrial Locomotive Operator Relationship Specialty Start Date End Date Lolly Oliveira MD [address] [place] [address] PCP - General 07/17/13 documented as of this encounter
--- OUTSIDE RECORDS SUMMARY | 2024-02-25 11:09 | XMS_ITS | Encounter Summary ---
Author Organization [facility] [place] [address] Care Team Providers Care Reeling Operator Name Role Phone Lolly Oliveira MD Primary Care Provider [phone] Encounter Details Date Type Department Care Team (Latest Contact Info) Description 07/26/2013 9:44 AM EDT - 07/26/2013 11:59 PM EDT Hospital En[place] [address] CLINIC, Lolly So MD [address] [place], [place] [id number] Mammographic microcalcification Discharge Disposition: Home Social History [...] AM EST Hospital Encounter Non-Invasive [place] [address] Arrived documented as of this encounter Procedures [...] are present on specimen digital X-ray. A [place]-Stereo 13 Cylinder marker clip was placed. Cranio-caudal [...] mLs documented in this encounter Care Teams Reeling Operator Relationship Specialty Start Date End Date Lolly Oliveira MD [address] [place] [address] PCP - General 07/17/13 documented as of this encounter
--- OUTSIDE RECORDS SUMMARY | 2024-02-25 11:09 | XMS_ITS | Encounter Summary ---
Author Organization [facility] Address [facility] [place] [address] Care Team Providers Care Crown Ironer Operator Name Role Phone Lolly Oliveira MD Primary Care Provider [phone] Encounter Details Date Type Department Care Team (Late st Contact Info) Description 01/29/2023 Notes Only Cardiology at [address] [address] Merle Lin PA [facility] [place] [address] Social History Tobacco Use Types Packs/Day Years Used Date Smoking Tobacco: Never Alcohol Use Standard Drinks/Week Comments Not Currently 0 (1 standard drink = 0.6 oz pur e alcohol) [facility] Inpatient Questions Answer Date Recorded Does Anyone [...] pdf document Date of transmission: 01/29/2023 Device technical sales engineer: BSI Device type: PROPOSAL MANAGER WRITER-D Presenting rhythm: /RVP/LVP AP 21% Right BOX MAKER PAPERBOARD 100% Left BOX MAKER PAPERBOARD: 100% Battery: 10.5 years [employer] Index rising in setting of increasing S3 intensity, increasing respiratory rate, increasing night heart rate, and increasing mean heart rate. MICKEY Villa 01/29/2023 9:06 AM documented in this encounter Plan of Treatment Upcoming Encounters Date Type Department Care Team (Late st Contact Info) Description 04/15/2024 10:00 AM EST Hospital Encounter Non-[place] [address] Arrived documented as of this encounter Visit Diagnoses Not on filedocumented in this encounter Care Teams Crown Ironer Operator Relationship Specialty Start Date End Date Lolly Oliveira MD [address] [place] [address] PCP - General 07/17/13 documented as of this encounter
--- OUTSIDE RECORDS SUMMARY | 2024-02-25 11:09 | XMS_ITS | Encounter Summary ---
Author Organization [facility] [place] [address] Care Team Providers Care Director Biologics Name Role Phone Lolly Oliveira MD Primary Care Provider [phone] Encounter Details Date Type Department Care Team (Late st Contact Info) Description 07/26/2013 [place] [address] Eleno Christian MD Social History Tobacco Use Types Packs/Day Years [...] [facility] Hospital Encounter Non[place] [address] Arrived documented as of this encounter Visit Diagnoses Not on filedocumented in this encounter Care Teams Director Biologics Relationship Specialty Start Date End Date Lolly Oliveira MD [address] [place] [address] PCP - General 07/17/13 documented as of this encounter
--- OUTSIDE RECORDS SUMMARY | 2024-02-25 11:09 | XMS_ITS | Encounter Summary ---
Author Organization [facility] Address [facility] [place] [address] Care Team Providers Care Timber Hewer Name Role Phone Lolly Oliveira MD Primary Care Provider Reason for Visit * Auth/Cert (Routine) Specialty Diagnoses / Procedures Referred By Contac t Referred To Contact Diagnoses Left bundle-branch block, unspecified Other cardiomyopathies Left bundle branch block [I44.7]Nonischemic cardiomyopathy [I42.8] Procedures PRG CATH PLMT LEFT HEART CATH & ARTS W/INJ & ANGIO IMG S&I ELECTROPHYSIOLOGY PROCEDURE Lalit Mcmahon MD [facility] [place] [address] [facility] Referral ID Status Reason Start Date Expiration Date Visits Re quested Visits Authorized [id number] 1 1 Encounter Details Date Type Department Care Team (Latest Contact Info) Description 07/23/2022 11:39 AM EDT - 07/24/2022 10:23 AM EDT Hospital [place] [id number] Lalit Mcmahon MD [facility] [place] [address] Left bundle branch block; Nonischemic cardiomyopathy; Cardiac resynchronization therapy defibrillator (APARTMENT HOUSE MANAGER-D) in place Discharge Disposition: Home Social [...] Luna Mott Patient Age: 71 y.o. Language: Fijian Race: White Ethnicity: Not nor Admit date: 07/23/2022 Discharge date and time: 07/24/22 Attending Physician: Lalit Mcmahon MD Discharge Physician: Lalit Mcmahon MD Follow-up Recommendations for Providers: - s/p APARTMENT HOUSE MANAGER-D implant - post implant QRS 130 [...] lentigo Operations/Major Procedures: 07/23/22: [facility] APARTMENT HOUSE MANAGER-D implant History of Presentation: 71 y.o. female with a history of HFrEF, LBBB, QRS >150, NYHA II who is POD#1 of APARTMENT HOUSE MANAGER-D implant ([employer]). Hospital Course: Elective admission for APARTMENT HOUSE MANAGER-D implant Admitted post-implant for pain management, [...] (heart failure with reduced ejection fraction) [I50.20] APARTMENT HOUSE MANAGER-D implant Admission Condition: good Indication for [...] g Refills: 3 fluticasone propionate 50 mcg/actuation Dunn, Suspension Commonly known as: Flonase 1 spray [...] incision. Make sure to use a clothing pattern preparer (such as a towel) in between the [...] F. The office scheduling phone number is [phone]. ARM MOVEMENT RESTRICTIONS POST-IMPLANT - Do not [...] please call the Cardiac ElectrophysiologyTriage Nurse at [phone], option 3. General Instructions None Discharge References/Attachments [...] incision. Make sure to use a clothing pattern preparer (such as a towel) in between the [...] F. The office scheduling phone number is [phone]. ARM MOVEMENT RESTRICTIONS POST-IMPLANT - Do not [...] please call the Cardiac ElectrophysiologyTriage Nurse at [phone], option 3. documented in this encounter Medications [...] with spacer fluticasone propionate (Flonase) 50 mcg/actuation [place], Suspension 1 spray by Each Nare route [...] Cardiac Electrophysiology Post-Implant Device Interrogation Luna Mott [id number] 07/24/2022 History: Luna Mott is a 71 y.o. female with a history of HFrEF, LBBB, QRS >150, NYHA II who is POD#1 of APARTMENT HOUSE MANAGER-D implant ([employer]). Overall feels well this morning. Ready [...] WOB Neuro- A&Ox3 Device Interrogation: Data ?? Rehabilitation Program Coordinator Model # Serial # Generator [employer] [id number] Atrial Lead [employer] 7841 [id number] RV Lead [employer] 0672 [id number] LV Lead [employer] [id number] ?? Diagnostics Pacing Mode: DDD 60-130 Underlying Rhythm: [place] Atrial Episodes: None Ventricular Episodes: None FINAL PROGRAMMING: Pacing: Mode Lower rate (ppm) Upper rate (ppm) ?? DDD 60 130 VF: Rate (bpm) #Antitachycardia pacing First shock energy (J) ?? 200 Quick convert 41 VT: 170 Monitor only Monitor only ? Battery and Leads Impedances (ohms) Sensing (mV) Thresholds HV RA RV LV RA RV LV RA RV LV 73 [phone] (LVa) 7.7 13.1 >25 0.4V @ 0.4 ms 0.4V @ 0.4 ms 0.5 V @ 1.0 ms POD#1 CXR: All leads in nominal positioning Impression: 71 y.o. female who is s/p APARTMENT HOUSE MANAGER-D implant for LBBB, NYHA II, HFrEF. [...] [facility]) Fadi Nunez MD 07/24/2022 Pager: [phone] I met with the patient today and [...] agreement. ? Dr. Lalit Mcmahon, electrophysiology attending ([id number]) * Zaria Wright RN - 07/23/2022 8:28 [...] HF, QRS > 150 ms presents for APARTMENT HOUSE MANAGER-D placement. ROS: Denies recent fevers or [...] 0.9) flush 5 mL 5 mL Intravenous [id number] ramos MD ??? sodium chloride 0.9 % [...] HF, QRS > 150 ms presents for APARTMENT HOUSE MANAGER-D placement. Backup would be LBBAP lead. Antibiotics: cefazolin Rationales for, intended benefits and potential risk of planned procedures reviewed. The patient indicated understanding and agreement with the plan. Informed consent signed. Procedure checklist completed. Fadi Nunez MD Cardiac Electrophysiology Fellow [facility] Pager [phone] 07/23/2022 I met with the patient today [...] agreement. ? Dr. Lalit Mcmahon, electrophysiology attending ([id number]) documented in this encounter Miscellaneous Notes * Brief Op Note - Lalit Mcmahon MD - 07/23/2022 4:04 PM EDT Brief Operative Note Patient Name: Luna Mott : [id number] MR#: [id number] Case Date: 07/23/2022 Surgeon: Surgeon(s) and Role: [...] AM EST Hospital Encounter Non[place] [address] Arrived Scheduled Orders Name Type Priority Associated Diagnoses Orde r Schedule EKG 12 Lead ECG Routine Cardiac resynchronization therapy defibrillator (APARTMENT HOUSE MANAGER-D) in place One Time for 1 [...] (Bezet) 522 ms MUSE SYSTEM Calculated R [place] 78 degrees MUSE SYSTEM Calculated T [place] -71 degrees MUSE SYSTEM INTERPRETATION AV dual-paced [...] questions please contact the health director of health care marketing that requested your imaging first. ? Electronically signed by: Kwame Vargas MD, [facility] ([phone]), at 07/24/2022 6:43 AM Narrative 07/24/2022 6:43 [...] have questions please contactthe health director of health care marketing that requested your imaging first. Electronically signed by: Kwame Vargas MD, [facility]([phone]), at 07/24/2022 6:43 AM Lalit Mcmahon MD IMG DX ORDERABLES * ELECTROPHYSIOLOGY PROCEDURE (07/23/2022 1:11 PM EDT) Anatomical Region Laterality Modality Other Narrative 07/23/2022 4:24 PM EDT Table formatting from the original result was not included. BIVENTRICULAR ICD IMPLANTATION Zig Zag Stitcher: Lalit Mcmahon MD Fellow: Fadi Nunez MD [...] lateral branch of the CS in the [place] view. This branch was cannulated with a [...] the entire procedure. LEAD AND GENERATOR DATA: Rehabilitation Program Coordinator Model # Serial # Generator [employer] [id number] Atrial Lead [employer] [id number] [id number] RV Lead [employer] 0672 [id number] LV Lead [employer] [id number] PACE/SENSE DATA: Sensed wave (mV) Threshold (V) [...] (cGycm2) 300 CONCLUSIONS: Successful implantation of a [employer] biventricular ICD for primary prevention and treatment of symptoms related to congestive heart failure. Follow up in EP clinic in 1-2 months. Procedures performed: new ICD system ( cpt 54601-J8); implant LV lead at time of ICD insertion (cpt 42051) I have read, edited and approve of this report: Lalit Mcmahon MD S Cardiac Electrophysiology 07/23/2022 4:22 PM Procedure Note Lalit Mcmahon MD - 07/23/2022 BIVENTRICULAR ICD IMPLANTATION Zig Zag Stitcher: Lalit Mcmahon MD Fellow: Fadi Nunez MD [...] appropriate lateralbranch of the CS in the [place] view. This branch was cannulated with a [...] in the entireprocedure. LEAD AND GENERATOR DATA: Rehabilitation Program Coordinator Model # Serial # Generator [employer] [id number] Atrial Lead [employer] 7841 [id number] RV Lead [employer] 0672 [id number] LV Lead [employer] 4674 [id number] PACE/SENSE DATA: Sensed wave (mV) Threshold (V) [...] (cGycm2) 300 CONCLUSIONS: Successful implantation of a [employer] biventricular ICD forprimary prevention and treatment of symptoms related to congestive heartfailure. Follow up in EP clinic in 1-2 months. Procedures performed: new ICD system ( cpt 38887-Q8); implant LV lead attime of ICD insertion (cpt 84519) I have read, edited and approve of this report: Lalit Mcmahon MD [facility] Cardiac Electrophysiology 07/23/2022 4:22 PM Lalit Mcmahon MD EP PROCEDURE ORDERAB LES * POCT Glucose (07/23/2022 12:54 PM EDT) Glucose, POC 83 65 - 199 mg/dL [facility] Comment: Supplemental ranges: <140 mg/dL before meals <180 mg/dL all other times of the day Blood 07/23/2022 12:5 4 PM EDT 07/23/2022 12:54 PM EDT Lalit Mcmahon MD POINT OF CARE TEST O RDERABLES Performing Organization Address [facility] Co de Phone Number [facility] [place] [address] * EKG 12 Lead (07/23/2022 12:33 PM EDT) Ventricular rate 72 BPM MUSE SYSTEM Atrial Rate 72 BPM MUSE SYSTEM P-R Interval 158 ms MUSE SYSTEM QRS Duration 176 ms MUSE SYSTEM Q-T Interval 458 ms MUSE SYSTEM QTC Calculated (Bezet) 501 ms MUSE SYSTEM Calculated P [place] 34 degrees MUSE SYSTEM Calculated R [place] 12 degrees MUSE SYSTEM Calculated T [place] -173 degrees MUSE SYSTEM INTERPRETATION Normal sinus rhythm Left bundle branch block Abnormal ECG No previous ECGs available Confirmed by MD Salome, Lalit ([id number]) on 07/23/2022 1:19:03 PM MUSE SYSTEM 07/23/2022 12:3 3 PM EDT 07/23/2022 1:19 PM EDT Lalit Mcmahon MD ECG ORDERABLES Performing Organization Address [facility] de Phone Number MUSE SYSTEM * Differential, Automated (07/23/2022 11:55 AM EDT) Neutrophil % 62.6 % [facility] Neutrophil Absolute 4.14 1.70 - 6.10 x10(3)/[facility] LAB[facility]AT[facility] Lymph % 27.0 % [facility] Lymphocytes Abs 1.8 0.9 - 3.2 x10(3)/[facility] LABORATORY Monocyte % 7.3 % [facility] ITAL [facility] Monocyte Abs 0.5 0.3 - 0.9 x10(3)/[facility] LABORATORY Eos % 2.3 % [facility] Eosinophils Abs 0.2 0.0 - 0.4 x10(3)/[facility] LABORATORY Basophil % 0.6 % [facility] IT[facility] LAB[facility]AT[facility] Baso Absolute 0.0 0.0 - 0.1 x10(3)/[facility] LABORATORY Immature Gran % 0.20 % [facility] Comment: Immature granulocytes(IG's)percentage and absolute count will include metamyelocytes, myelocytes, and promyelocytes. Blood smears from CBCs yielding IG's will be scanned manually for concordance. If this scan disagrees with the automated IG or if promyelocytes are noted, a manual differential will be performed. Immature Gran Absolute 0.01 0.00 - 0.04 x10(3)/[facility]ATORY Blood 07/23/2022 11:5 5 AM EDT 07/23/2022 12:07 PM EDT Narrative Resulting Agency Comment Spec In Lab Lalit Mcmahon MD HEMATOLOGY ORDERABLE S [facility] [place] [address] * Hemogram (07/23/2022 11:55 AM EDT) White Blood Cell 6.6 4.0 - 9.5 x10(3)/[facility]AT[facility] Red Blood Cell 4.50 4.00 - 5.21 x10(6)/[facility] Hemoglobin 13.7 11.7 - 15.5 g/dL [facility] Hematocrit 42.5 35.7 - 45.8 % [facility] Mean Cell Volume 94.4 82.6 - 94.4 fL [facility] Mean Cell Hemoglobin 30.4 27.1 - 32.0 pg [facility] Mean Cell Hemoglobin Concentration 32.2 31.7 - 35.0 g/dL [facility] Platelet 193 145 - 357 x10(3)/[facility]ORATORY RDW Standard Deviation 45.5 37.0 - 46.0 fL [facility] RDW coefficient of variation 13.2 11.5 - 14.1 % [facility] Mean Platelet Volume 9.5 7.6 - 12.9 fL [facility] NRBC% auto 0.0 % [facility] NRBC Absolute 0.000 0.000 - 0.000 x10(3)/mcL [facility] Blood 07/23/2022 11:5 5 AM EDT 07/23/2022 12:07 PM EDT Narrative Resulting Agency Comment Spec In Lab Lalit Mcmahon MD HEMATOLOGY ORDERABLE S [facility] [address] [place] [address] * (ABNORMAL) BMP w/fasting Glucose (07/23/2022 11:55 AM EDT) Glucose Fasting 110(H) 65 - 99 mg/dL [facility] Comment: ?Fasting* Glucose Interpretive [...] of Diabetes Mellitus, Position Statement from the [place] [employer]. ??Diabetes Care, Volume 33, Supplement 1, Mar 2009 Blood Urea Nitrogen 23(H) 8 - 18 mg/dL [facility] Creatinine 1.07 0.70 - 1.20 mg/dL [facility] Sodium 141 135 - 145 mmol/L [facility] Potassium 4.8 3.5 - 5.0 mmol/L [facility] Comment: Please note: ??Patients with WBC >100,000 may have falsely elevated Potassium levels. ??For accurate Potassium quantification in these patients send serum separator tube (gold top) for subsequent determinations. ??Contact the Clinical Chemistry Laboratory if there are any questions. Chloride 106 98 - 107 mmol/L [facility] Carbon Dioxide 26 22 - 31 mmol/L [facility] Anion Gap 9 5 - 15 mmol/L [facility] Calcium 9.7 8.5 - 10.5 mg/dL [facility] Est Glomerular Filtration Rate 55(L) >=60 mL/min/1. 73 m?? [facility] Comment: This patient's estimated [...] CHEMISTRY ORDERABLES Performing Organization Address [facility] Co de Phone Number [facility] [place] [address] * Prothrombin Time (07/23/2022 11:55 AM EDT) Prothrombin Time 11.7 9.4 - 12.5 sec [facility] International Normalization Ratio 1.0 [facility] Comment: An INR <2.0 [...] HEMATOLOGY ORDERABLE S Performing Organization Address City/[facility] Co de Phone Number [facility] [place] [address] documented in this encounter Visit Diagnoses Diagnosis HFrEF (heart failure with reduced ejection fraction)- Primary Left bundle branch block Other left bundle branch block Nonischemic cardiomyopathy Other primary cardiomyopathies Cardiac resynchronization therapy defibrillator (APARTMENT HOUSE MANAGER-D) in place Left bundle branch block [...] Routine documented in this encounter Care Teams Timber Hewer Relationship Specialty Start Date End Date Lolly Oliveira MD [address] [place] [address] PCP - General 07/17/13 documented as of this encounter
--- OUTSIDE RECORDS SUMMARY | 2024-02-25 11:09 | XMS_ITS | Encounter Summary ---
Author Organization [facility] [place] [address] Care Team Providers Care Tabular Typist Name Role Phone Lolly Oliveira MD Primary Care Provider [phone] Reason for Referral * Diagnostic Test (Routine) - Closed Specialty Diagnoses / Procedures Referred By Contac t Referred To Contact Radiology Diagnoses Left bundle branch block Nonischemic cardiomyopathy Procedures MRI Cardiac Morphology Function With Flow Velocity Quantification wwo Contrast MRI Cardiac Morphology Function wwo Contrast Lalit Mcmahon MD [facility] [place] [address] [place] [address] Referral ID Status Reason Start Date Expiration Date V isits Requested Visits Authorized [id number] Closed Specialty Service Requested 05/06/2022 11/07/2023 2 1 Encounter Details Date Type Department Care Team (Late st Contact Info) Description 05/06/2022 Orders Only Cardiology at [address] [address] Lalit Mcmahon MD [facility] [place] [address] Left bundle branch block; Nonischemic cardiomyopathy Social [...] AM EST Hospital Encounter Non-Invasive [place] [address] Arrived documented as of this encounter Results [...] who have questions please contact the health associate director career services that requested your imaging first. ? Narrative [...] patients who have questions please contactthe health associate director career services that requested your imaging first. Lalit Mcmahon MD IMG MRI ORDERABLES documented in this encounter Visit Diagnoses Diagnosis Left bundle branch block Other left bundle branch block Nonischemic cardiomyopathy Other primary cardiomyopathies Left bundle branch block Other left bundle branch block Nonischemic cardiomyopathy Other primary cardiomyopathies documented in this encounter Care Teams Tabular Typist Relationship Specialty Start Date End Date Lolly Oliveira MD [address] [place] [address] PCP - General 07/17/13 documented as of this encounter
--- OUTSIDE RECORDS SUMMARY | 2024-02-25 11:09 | XMS_ITS | Encounter Summary ---
Author Organization [facility] [address] Care Team Providers Care Mushroom Picker Name Role Phone Lolly Oliveira MD Primary Care Provider [phone] Reason for Visit * Reason Comments Follow-up Encounter Details Date Type Department Care Team (Late st Contact Info) Description 05/21/2022 8:00 AM EDT Office Visit Dermatology at [address] [phone] Clay Ramírez MD [address] [facility] [place] [address] Psoriasis, guttate Social History Tobacco Use Types [...] CARE FACILITY Hospital Encounter Non[place] [address] Arrived documented as of this encounter Visit Diagnoses Diagnosis Psoriasis, guttate Other psoriasis documented in this encounter Care Teams Mushroom Picker Relationship Specialty Start Date End Date Lolly Oliveira MD [address] [place] [address] PCP - General 07/17/13 documented as of this encounter
--- OUTSIDE RECORDS SUMMARY | 2024-02-25 11:09 | XMS_ITS | Encounter Summary ---
Author Organization [facility] [place] [address] Care Team Providers Care Avian Keeper Name Role Phone Lolly Oliveira MD Primary Care Provider [phone] Reason for Visit * Diagnostic Test (Routine) - Closed Specialty Diagnoses / Procedures Referred By Contac t Referred To Contact Radiology Diagnoses Left bundle branch block Nonischemic cardiomyopathy Procedures MRI Cardiac Morphology Function With Flow Velocity Quantification wwo Contrast MRI Cardiac Morphology Function wwo Contrast Lalit Mcmahon MD [facility] [place] [address] [facility] [place] [address] Referral ID Status Reason Start Date Expiration Date V isits Requested Visits Authorized [id number] Closed Specialty Service Requested 05/06/2022 11/07/2023 2 1 Encounter Details Date Type Department Care Team (Latest Contact Info) Description 07/14/2022 9:09 AM EDT - 07/14/2022 11:59 PM EDT [place] [address] Lalit Mcmahon MD [facility] [place] [address] Discharge Disposition: Home Social History Tobacco Use [...] with spacer fluticasone propionate (Flonase) 50 mcg/actuation [place], Suspension 1 spray by Each Nare route [...] Hospital Encounter Non[place] [address] Arrived documented as of this [...] mLs documented in this encounter Care Teams Avian Keeper Relationship Specialty Start Date End Date Lolly Oliveira MD [address] [place] [address] PCP - General 07/17/13 documented as of this encounter
--- OUTSIDE RECORDS SUMMARY | 2024-02-25 11:09 | XMS_ITS | Encounter Summary ---
[place] [address] Care Team Providers Care Fisher Eel Spear Name Role Phone Lolly Oliveira MD Primary Care Provider [phone] Encounter Details Date Type Department Care Team [...] AM EST Hospital Encounter Non[place] [address] Arrived documented as of this encounter Visit Diagnoses Not on filedocumented in this encounter Care Teams Fisher Eel Spear Relationship Specialty Start Date End Date Lolly Oliveira MD [address] [place] [address] PCP - General 07/17/13 documented as of this encounter
--- OUTSIDE RECORDS SUMMARY | 2024-02-25 11:09 | XMS_ITS | Encounter Summary ---
Author Organization [facility] [place] [address] Care Team Providers Care Bilingual Sales Consultant Name Role Phone Lolly Oliveira MD Primary Care Provider [phone] Encounter Details Date Type Department Care Team (Late st Contact Info) Description 11/16/2022 Telephone Cardiology at [address] [phone] Luna Rousseau, RN Social History Tobacco Use Types Packs/Day Years Used Date Smoking Tobacco: Never Alcohol Use Standard Drinks/Week Comments Not Currently 0 (1 standard drink = 0.6 oz pur e alcohol) [facility] Inpatient Questions Answer Date Recorded Does Anyone [...] BP today was 118/57 at CR at [facility]. Pt is going twice a [...] [facility] Hospital Encounter [place] [address] Arrived documented as of this encounter Visit Diagnoses Not on filedocumented in this encounter Care Teams Bilingual Sales Consultant Relationship Specialty Start Date End Date Lloly Oliveira MD [address] [place] [address] PCP - General 07/17/13 documented as of this encounter
--- OUTSIDE RECORDS SUMMARY | 2024-02-25 11:09 | XMS_ITS | Encounter Summary ---
Author Organization [facility] [place] [address] Care Team Providers Care Convertible Power Shovel Operator Name Role Phone Lolly Oliveira MD Primary Care Provider [phone] Reason for Referral * Consultation (Routine) - Closed Specialty Diagnoses / Procedures Referred By Contact Referred To Contact Electrophysiology / Cardiology Diagnoses Left bundle branch block Cardiomyopathy, unspecified type AT MINIMUM PT NEEDS CONSIDERATION FOR DEFIBRILLATOR, ALSO CANDIDATE FOR RESYNCHRONIZATION THERAPY HER QRS IS >0.16 Lolly Oliveira MD [address] [place] [address] [facility] [address] [place] [phone] Referral ID Status Reason Start Date Expiration Date V isits Requested Visits Authorized [id number] Closed Consult, Test & Treat PCP Updated and/or Approved 04/30/2022 04/30/2023 6 6 Encounter Details Date Type Department Care Team (Latest Contact Info) Description 04/30/2022 Transcribe Orders eDH Incoming Referrals [phone] Lolly Oliveira MD [address] [place], [place] [id number] Left bundle branch block; Cardiomyopathy, unspecified type [...] AM EST Hospital Encounter Non-Invasive [place] [address] Arrived Scheduled Referrals Name Type Priority Associated Diagnoses Orde r Schedule Referral to Cardiology Outpatient Referral Routine Left bundle branch block Cardiomyopathy, Unspecified Type Ordered: 04/30/2022 documented as of this encounter Visit Diagnoses Diagnosis Left bundle branch block Other left bundle branch block Cardiomyopathy, unspecified type documented in this encounter Care Teams Convertible Power Shovel Operator Relationship Specialty Start Date End Date Lolly Oliveira MD [address] [place] [address] PCP - General 07/17/13 documented as of this encounter
--- OUTSIDE RECORDS SUMMARY | 2024-02-25 11:09 | XMS_ITS | Encounter Summary ---
Author Organization Formerly [facility] [place] [address] Care Team Providers Care Packer Fuser Name Role Phone Lolly Oliveira MD Primary Care Provider [phone] Encounter Details Date Type Department Care Team (Latest Contact Info) Description 07/26/2013 9:45 AM EDT - 07/26/2013 11:59 PM EDT Hospital [place] [address] Mammographic microcalcification Social History Tobacco Use Types [...] AM EST Hospital Encounter [place] [address] Arrived documented as of this encounter Procedures [...] microcalcification documented in this encounter Care Teams Packer Fuser Relationship Specialty Start Date End Date Lolly Oliveira MD [address] [place] [address] PCP - General 07/17/13 documented as of this encounter
--- OUTSIDE RECORDS SUMMARY | 2024-02-25 11:09 | XMS_ITS | Encounter Summary ---
Author Organization [facility] [place] [address] Care Team Providers Care Rigging Loft Mechanic Name Role Phone Lolly Oliveira MD Primary Care Provider Encounter Details Date Type Department Care Team (Late st Contact Info) Description 03/17/2023 Telephone Cardiology at [address] [phone] Saranya Ma Social History Tobacco Use Types [...] AM EST Echo order faxed to [facility] at [phone]. No Prior auth needed. Ref #:[id number]. Saranya Ma Sr. Clinical Procedure Feura Bush/Power Plant Manager documented in this encounter Plan of Treatment Upcoming Encounters Date Type Department Care Team (Late st Contact Info) Description 04/15/2024 10:00 AM [facility] Hospital Encounter [place] [address] Arrived documented as of this encounter Visit Diagnoses Not on filedocumented in this encounter Care Teams Rigging Loft Mechanic Relationship Specialty Start Date End Date Lolly Oliveira MD [address] [place] [address] PCP - General 07/17/13 documented as of this encounter
--- OUTSIDE RECORDS SUMMARY | 2024-02-25 11:09 | XMS_ITS | Encounter Summary ---
Author Organization [facility] Address [facility] [place] [address] Care Team Providers Care Electronic Scale Subassembler Name Role Phone Lolly Oliveira MD Primary Care Provider [phone] Encounter Details Date Type Department Care Team (Late st Contact Info) Description 03/15/2023 Orders Only Cardiology at [address] [address] Lalit Mcmahon MD [facility] [place] [address] Nonischemic cardiomyopathy; Biventricular ICD (implantable cardioverter-defibrill ator) [...] AM EST Hospital Encounter Non-[place] [address] Arrived documented as of this encounter Visit Diagnoses Diagnosis Nonischemic cardiomyopathy Other primary cardiomyopathies Biventricular ICD (implantable cardioverter-defibrillator) in place documented in this encounter Care Teams Electronic Scale Subassembler Relationship Specialty Start Date End Date Lolly Oliveira MD [address] [place] [address] PCP - General 07/17/13 documented as of this encounter
--- OUTSIDE RECORDS SUMMARY | 2024-02-25 11:09 | XMS_ITS | Encounter Summary ---
Author Organization [facility] [place] [address] Care Team Providers Care Can Intake Worker Name Role Phone Lolly Oliveira MD Primary Care Provider [phone] Reason for Visit * Reason Comments Follow-up Encounter Details Date Type Department Care Team (Late st Contact Info) Description 06/06/2021 8:45 AM EDT Office Visit Dermatology at [address] [address] Clay Ramírez MD [address] [facility], [place] [address] Psoriasis, guttate Social History Tobacco Use Types [...] AM EST Hospital Encounter Non-[place] [address] Arrived documented as of this encounter Visit Diagnoses Diagnosis Psoriasis, guttate Other psoriasis documented in this encounter Care Teams Can Intake Worker Relationship Specialty Start Date End Date Lolly Oliveira MD [address] [place] [address] PCP - General 07/17/13 documented as of this encounter
--- OUTSIDE RECORDS SUMMARY | 2024-02-25 11:09 | XMS_ITS | Encounter Summary ---
[place] [address] Care Team Providers Care Process Treater Name Role Phone Lolly Oliveira MD Primary Care Provider [phone] Encounter Details Date Type Department Care Team (Latest Contact Info) Description 07/26/2013 9:45 AM EDT - 07/26/2013 11:59 PM EDT Hospital En[place] [address] Mammographic microcalcification Social History Tobacco Use Types [...] AM EST Hospital Encounter Non-Invasive [place] [address] Arrived documented as of this encounter Procedures [...] Name: ?? JING MOTT ? Acc #: ?[id number] ?Pt. ? Col Date: ?? 07/26/2013 ? [...] Name: ?? JING MOTT ? Acc #: ?[id number] ?Pt. ? Col Date: ?? 07/26/2013 ? [...] MD PATHOLOGY/CYTOLOGY O RDERABLES Performing Organization Address City/State/[facility] Co co Phone Number [facility] [place] [address] * Mammo Specimen Imaging During Biopsy (07/26/2013 [...] microcalcification documented in this encounter Care Teams Process Treater Relationship Specialty Start Date End Date Lolly Oliveira MD [address] [place] [address] PCP - General 07/17/13 documented as of this encounter
--- OUTSIDE RECORDS SUMMARY | 2024-02-25 11:09 | XMS_ITS | Encounter Summary ---
Author Organization [facility] Address [facility] [place] [address] Care Team Providers Care Turbinated Bone Grinder Name Role Phone Lolly Oliveira MD Primary Care Provider [phone] Encounter Details Date Type Department Care Team (Late st Contact Info) Description 11/11/2022 Orders Only Cardiology at [address] [phone] Lalit Mcmahon MD [facility] [place] [address] Nonischemic cardiomyopathy Social History Tobacco Use Types [...] [facility] Hospital Encounter Non-[place] [address] Arrived documented as of this encounter Visit Diagnoses Diagnosis Nonischemic cardiomyopathy Other primary cardiomyopathies documented in this encounter Care Teams Turbinated Bone Grinder Relationship Specialty Start Date End Date Berrian, Lolly M, MD [address] [place] [address] PCP - General 07/17/13 documented as of this encounter
--- OUTSIDE RECORDS SUMMARY | 2024-02-25 11:09 | XMS_ITS | Encounter Summary ---
Author Organization [facility] Address [facility] [place] [address] Care Team Providers Care Bridal Consultant Name Role Phone Lolly Oliveira MD Primary Care Provider [phone] Encounter Details Date Type Department Care Team (Late st Contact Info) Description 05/03/2023 Telephone Cardiology at [address] [phone] Lalit Mcmahon MD [facility] [address] [place] [address] Social History Tobacco Use Types Packs/Day Years [...] AM EST Hospital Encounter Non-[place] [address] Arrived documented as of this encounter Visit Diagnoses Not on filedocumented in this encounter Care Teams Bridal Consultant Relationship Specialty Start Date End Date Lolly Oliveira MD [address] [place] [address] PCP - General 07/17/13 documented as of this encounter
--- OUTSIDE RECORDS SUMMARY | 2024-02-25 11:09 | XMS_ITS | Encounter Summary ---
Author Organization [facility] [place] [address] Care Team Providers Care Alto Singer Name Role Phone Lolly Oliveira MD Primary Care Provider [phone] Encounter Details Date Type Department Care Team (Late st Contact Info) Description 04/01/2021 3:30 PM EST Office Visit Dermatology at [address] [phone] Clay Ramírez MD [address] [facility], [place] [address] Psoriasis, guttate Social History Tobacco Use Types [...] AM EST Hospital Encounter Non-Invasive [place] [address] Arrived documented as of this encounter Visit Diagnoses Diagnosis Psoriasis, guttate Other psoriasis documented in this encounter Care Teams Alto Singer Relationship Specialty Start Date End Date Lolly Oliveira MD [address] [place] [address] PCP - General 07/17/13 documented as of this encounter
--- OUTSIDE RECORDS SUMMARY | 2024-02-25 11:09 | XMS_ITS | Encounter Summary ---
Author Organization [facility] [place] [address] Care Team Providers Care Imagery Analyst Name Role Phone Lolly Oliveira MD Primary Care Provider Encounter Details Date Type Department Care Team (Late st Contact Info) Description 10/09/2021 Telephone Dermatology at [address] [address] Nora Meredith LPN Social History [...] [facility] Hospital Encounter Non-In[place] [address] Arrived documented as of this encounter Visit Diagnoses Not on filedocumented in this encounter Care Teams Imagery Analyst Relationship Specialty Start Date End Date Lolly Oliveira MD [address] [place] [address] PCP - General 07/17/13 documented as of this encounter
--- OUTSIDE RECORDS SUMMARY | 2024-02-25 11:10 | XMS_ITS | Encounter Summary ---
Author Organization [facility] [place] [address] Care Team Providers Care Fluoroscope Operator Name Role Phone Lolly Oliveira MD Primary Care Provider [phone] Encounter Details Date Type Department Care Team (Latest Contact Info) Description 07/17/2013 8:40 AM EDT - 07/17/2013 11:59 PM EDT Hospital Encounter XRay at [address] [place] [phone] CL[address], [facility] Discharge Disposition: Home Social [...] AM EST Hospital Encounter Non-[place] [address] Arrived documented as of this encounter Visit Diagnoses Not on filedocumented in this encounter Care Teams Fluoroscope Operator Relationship Specialty Start Date End Date Lolly Oliveira MD [address] [place] [address] PCP - General 07/17/13 documented as of this encounter
--- OUTSIDE RECORDS SUMMARY | 2024-02-25 11:10 | XMS_ITS | Encounter Summary ---
Author Organization [facility] [place] [address] Care Team Providers Care State Farm Agent Team Member Name Role Phone Unavailable Primary Care Provider Unavailabl e Encounter Details Date Type Department Care Team (Late st Contact Info) Description 07/14/2013 [place] [phone] Eleno Christian MD Social History Tobacco Use [...] AM EST Hospital Encounter Non-[place] [address] Arrived documented as of this encounter Visit Diagnoses Not on filedocumented in this encounter
--- OUTSIDE RECORDS SUMMARY | 2024-02-25 11:10 | XMS_ITS | Encounter Summary ---
Author Organization [facility] [place] [address] Care Team Providers Care Cp Bleacher Operator Name Role Phone Unavailable Primary Care Provider Unavailabl e Encounter Details Date Type Department Care Team (Late st Contact Info) Description 07/04/2012 Orders [place] [address] Eleno Christian MD Social History Tobacco Use [...] AM EST Hospital Encounter Non-Invasive [place] [address] Arrived documented as of this encounter Procedures [...] exam Eleno Christian MD IMG FILM LIBRARY ORD ERABLES documented in this encounter Visit Diagnoses Not on filedocumented in this encounter
--- OUTSIDE RECORDS SUMMARY | 2024-02-25 11:10 | XMS_ITS | Encounter Summary ---
Author Organization [facility] [place] [address] Care Team Providers Care Turkey Picker Name Role Phone Unavailable Primary Care Provider Unavailabl e Encounter Details Date Type Department Care Team (Late st Contact Info) Description 07/14/2013 External Results XRay at [address] [place] [address] Provider, Scanning Social History Tobacco Use Types [...] AM EST Hospital Encounter Non-Invasive Cardiology Lab [facility] [place] [address] Arrived documented as of this encounter Procedures [...]
--- OUTSIDE RECORDS SUMMARY | 2024-02-25 11:10 | XMS_ITS | Encounter Summary ---
Author Organization [facility] [place] [address] Care Team Providers Care Endband Sizer Name Role Phone Lolly Oliveira MD Primary Care Provider [phone] Encounter Details Date Type Department Care Team (Late st Contact Info) Description 06/29/2011 Orders [place] [address] Eleno Christian MD Social History Tobacco Use [facility] Encounter Non-[place] [address] Arrived documented as of this encounter Procedures [...] on filedocumented in this encounter Care Teams Endband Sizer Relationship Specialty Start Date End Date Lolly Oliveira MD [address] [place] [address] PCP - General 07/17/13 documented as of this encounter
--- OUTSIDE RECORDS SUMMARY | 2024-02-25 11:10 | XMS_ITS | Encounter Summary ---
[place] [address] Care Team Providers Care Sex Worker Or Escort Name Role Phone Lolly Oliveira MD Primary Care Provider [phone] Encounter Details Date Type Department Care Team (Late st Contact Info) Description 07/17/2013 [place] [phone] Lolly Oliveira MD [address] [place], [place] [address] Social History Tobacco Use Types Packs/Day Years [...] Hospital Encounter Non-[place] [address] Arrived documented as of this encounter Procedures [...] (PERFORMED ON 07/06/13 AND 07/14/13) FROM [facility] DATED 07/17/13: ?? DIAGNOSTIC IMAGING SUMMARY: ?? [...] OUTSIDE MAMMOGRAMS (PERFORMED ON 07/06/13 AND 07/14/13) [facility] DATED 07/17/13: DIAGNOSTIC IMAGING SUMMARY: [...] on filedocumented in this encounter Care Teams Sex Worker Or Escort Relationship Specialty Start Date End Date Lolly Oliveira MD [address] [place] [address] PCP - General 07/17/13 documented as of this encounter
[2024-02-25 12:42] VITALS: BP 146/71; PULSE 71
--- OUTSIDE RECORDS SUMMARY | 2024-03-03 11:12 | XMS_ITS | Encounter Summary ---
Author Organization [place] [address] Care Team Providers Care Portainer Operator Name Role Phone Lolly Oliveira MD Primary Care Provider [phone] Encounter Details Date Type Department Care Team (Late st Contact Info) Description 03/17/2023 Telephone Cardiology at [address] [phone] Saranya Ma Social History Tobacco Use Types Packs/Day Years Used Date Smoking Tobacco: Never Alcohol Use Standard Drinks/Week Comments Not Currently 0 (1 standard drink = 0.6 oz pur e alcohol) [facility] Inpatient Questions Answer Date Recorded Does Anyone [...] 9:43 AM EST Echo order faxed to [facility] at [phone]. No Prior auth needed. Ref #:[id number]. Saranya Ma Sr. Clinical Procedure Buxton/Veterinary Radiologist documented in this encounter Plan of Treatment Upcoming Encounters Date Type Department Care Team (Late st Contact Info) Description 04/15/2024 10:00 AM [facility] Hospital Encounter Non-Invasive [place] [address] Arrived documented as of this encounter Visit Diagnoses Not on filedocumented in this encounter Care Teams Portainer Operator Relationship Specialty Start Date End Date Lolly Oliveira MD [address] [place] [address] PCP - General 07/17/13 documented as of this encounter
--- OUTSIDE RECORDS SUMMARY | 2024-03-03 11:12 | XMS_ITS | Encounter Summary ---
Author Organization [facility] Address [address] [place] [address] Care Team Providers Care Rabbler Name Role Phone Lolly Oliveira MD Primary Care Provider [phone] Encounter Details Date Type Department Care Team (Late st Contact Info) Description 03/06/2003 Results Only [facility] conversion [address] [place] [address] Lolly Oliveira MD [address] [place], [place] [phone] Social History Tobacco Use Types Packs/Day Years [...] ORDERABLES Final Resu lt [facility] [address] [place] [address] documented in this encounter Visit Diagnoses Not on filedocumented in this encounter Care Teams Rabbler Relationship Specialty Start Date End Date Lolly Oliveira MD [address] [place] [address] PCP - General 11/13/08 documented as of this encounter
--- OUTSIDE RECORDS SUMMARY | 2024-03-03 11:12 | XMS_ITS | Encounter Summary ---
Author Organization [facility] Address [address] [place] [address] Care Team Providers Care Pharm Tech Name Role Phone Lolly Oliveira MD Primary Care Provider [phone] Encounter Details Date Type Department Care Team (Late st Contact Info) Description 05/02/2004 Results Only [facility] conversion [address] [place] [address] Lolly Oliveira MD [address] [place], [place] [phone] Social History Tobacco Use Types Packs/Day Years [...] 68. [facility] Report Status Final [id number] [facility] 05/02/2004 9:32 EST 05/10/2004 9:32 EST us Lolly Oliveira MD MICROBIOLOGY - GENERAL ORDERABL ES Final Result [facility] [address] [place] [address] * CYTOPATHOLOGY (05/02/2004 0:00 EST) Pathology Report: CYTOPATHOLOGY REPORT Reports generated via electronic interface contain original data; however they are lacking the format of the original report. Caution should be taken when reading/interpreti ng unformatted reports. Name: ? JING ALVARENGA ? Accession #: ? [id number] : ? 1950 (Age: 53) ??F ?Collect [...] Final Resu lt Performing Organization Address City/State/[facility] Co de Phone Number [facility] [address] [place] [address] documented in this encounter Visit Diagnoses Not on filedocumented in this encounter Care Teams Pharm Tech Relationship Specialty Start Date End Date Lolly Oliveira MD [address] [place] [address] PCP - General 11/13/08 documented as of this encounter
--- OUTSIDE RECORDS SUMMARY | 2024-03-03 11:12 | XMS_ITS | Encounter Summary ---
Author Organization [facility] [place] [address] Care Team Providers Care Supervisor Varnish Name Role Phone Lolly Oliveira MD Primary Care Provider [phone] Encounter Details Date Type Department Care Team (Late st Contact Info) Description 05/18/2023 Refill Dermatology at [address] [address] Nora Meredith LPN Social History [...] patient. She voiced understanding. Order sent to [facility] drug. documented in this encounter Plan of Treatment Upcoming Encounters Date Type Department Care Team (Late st Contact Info) Description 04/15/2024 10:00 AM EST Hospital Encounter Non-[place] [address] Arrived documented as of this encounter Visit Diagnoses Not on filedocumented in this encounter Care Teams Supervisor Varnish Relationship Specialty Start Date End Date Lolly Oliveira MD [address] [place] [address] PCP - General 07/17/13 documented as of this encounter
--- OUTSIDE RECORDS SUMMARY | 2024-03-03 11:12 | XMS_ITS | Clinical Summary ---
Author Organization [facility] Address [address] [place] [address] Care Team Providers Care Ore Digger Name Role Phone Lolly Oliveira MD Primary Care Provider [phone] Social History Tobacco Use Types Packs/Day Years [...] 08/10/2023 COVID-19 Vaccine (2023- season) 2023 Insurance [facility] MEDICARE Care Teams Ore Digger Relationship Specialty Start Date End Date Berrian, Lolly, MD [address] [place] [address] PCP - General 11/13/08
--- OUTSIDE RECORDS SUMMARY | 2024-03-03 11:12 | XMS_ITS | Encounter Summary ---
Author Organization [facility] Address [address] [place] [address] Care Team Providers Care Racetrack Steward Name Role Phone Lolly Oliveira MD Primary Care Provider [phone] Encounter Details Date Type Department Care Team (Late st Contact Info) Description 02/20/2020 Lab Requisition [facility] Pathology & Laboratory Medicine - [address] [phone] Outr Resulting Lab, Provider Social History Tobacco [...] in accordance with CLIA regulations, College of [place] [employer] (CAP) guidelines (May 25, 2019), and FDA guidance (May 06, 2019). This test is only for use under the Food and Drug Administration's Emergency Use Authorization. Swab ENTIRE NASOPHARYNX / Unknown 02/19/2020 16:30 EST 02/20/2020 16:09 EST us Provider Outr Resulting Lab MICROBIOLOGY - GENER AL ORDERABLES Final Result [facility] [place] * COVID-19 TESTING (02/19/2020 16:30 EST) COVID-19 rt-PCR Result NEGATIVE Negative 02/22/2020 23:41 EST [facility] Comment: 2019-novel Coronavirus (2019-nCoV) not [...] in accordance with CLIA regulations, College of [place] [employer] (CAP) guidelines (May 25, 2019), and FDA guidance (May 06, 2019). This test is only for use under the Food and Drug Administration's Emergency Use Authorization. Performing Lab [facility] 02/22/2020 23:41 EST [facility] Swab 02/19/2020 16:3 0 EST 02/20/2020 16:09 EST us Provider Outr Resulting Lab MICROBIOLOGY - GENER AL ORDERABLES Final Result [facility] [address] [place] [address] [facility] [place], [place] documented in this encounter Visit Diagnoses Not on filedocumented in this encounter Care Teams Racetrack Steward Relationship Specialty Start Date End Date Lolly Oliveira MD [address] [place] [address] PCP - General 11/13/08 documented as of this encounter
--- OUTSIDE RECORDS SUMMARY | 2024-03-03 11:12 | XMS_ITS | Encounter Summary ---
Author Organization [facility] [address] Care Team Providers Care Regional Sales Representative Name Role Phone Lolly Oliveira MD Primary Care Provider [phone] Encounter Details Date Type Department Care Team (Latest Contact Info) Description 10/18/2023 10:00 AM EDT - 10/18/2023 11:59 PM EDT Hospital Encounter [place] [address] Discharge Disposition: Home Social History Tobacco Use [...] with spacer fluticasone propionate (Flonase) 50 mcg/actuation [place], Suspension 1 spray by Each Nare route daily as needed. documented as of this encounter Plan of Treatment Upcoming Encounters Date Type Department Care Team (Late st Contact Info) Description 04/15/2024 10:00 AM EST Hospital Encounter Non-[place] [address] Arrived documented as of this encounter Procedures Procedure Name Priority Date/Time Associated Diagnosis Comments PRO ICD INTERROGATION REMOTE UP TO 90 DAYS Routine 08/20/2023 4:32 AM EDT documented in this encounter Results * Cardiac Device Check - Remote (08/20/2023 4:32 AM EDT) Anatomical Region Laterality Modality Other 08/20/2023 4:32 AM EDT Tre lAeman MD IMPLANTABLE CARDIAC DEVICE documented in this encounter Visit Diagnoses Not on filedocumented in this encounter Care Teams Regional Sales Representative Relationship Specialty Start Date End Date Lolly Oliveira MD [address] [place] [address] PCP - General 07/17/13 documented as of this encounter
--- OUTSIDE RECORDS SUMMARY | 2024-03-03 11:12 | XMS_ITS | Encounter Summary ---
Author Organization [facility] Address [address] [place] [address] Care Team Providers Care Retail Consultant Name Role Phone Lolly Oliveira MD Primary Care Provider [phone] Encounter Details Date Type Department Care Team (Late st Contact Info) Description 04/17/2005 Results Only [facility] [place] conversion [address] [place] [address] Lolly Oliveira MD [address] [place], [place] [id number] Social History Tobacco Use Types Packs/Day Years [...] ? JING ALVARENGA ? Accession #: ? [id number] : ? 1950 (Age: 54) ??F ?Collect Date: ? 04/17/2005 Location: ? [facility] ? Receive Date: ? 04/21/2005 Provider: ?LOLLY OLIVEIRA MD Copy to: ? Specimen/Source: ?ThinPrep Pap Test, Cervix/Endocervix, processed on [employer] ThinPrep Imaging System, with manual evaluation [...] Final Resu lt [facility] [address] [place] [address] documented in this encounter Visit Diagnoses Not on filedocumented in this encounter Care Teams Retail Consultant Relationship Specialty Start Date End Date Lolly Oliveira MD [address] [place] [address] PCP - General 11/13/08 documented as of this encounter
--- OUTSIDE RECORDS SUMMARY | 2024-03-03 11:12 | XMS_ITS | Encounter Summary ---
Author Organization [facility] [place] [address] Care Team Providers Care Parts Inspector Name Role Phone Lolly Oliveira MD Primary Care Provider Encounter Details Date Type Department Care Team (Latest Contact Info) Description 01/16/2024 10:00 AM EST - 01/16/2024 11:59 PM EST Hospital Encounter [place] [phone] Discharge Disposition: Home Social History Tobacco Use Types Packs/Day Years Used Date Smoking Tobacco: Never Alcohol Use Standard Drinks/Week Comments Not Currently 0 (1 standard drink = 0.6 oz pur e alcohol) [facility] Inpatient Questions Answer Date Recorded Does Anyone [...] with spacer fluticasone propionate (Flonase) 50 mcg/actuation [place], Suspension 1 spray by Each Nare route daily as needed. documented as of this encounter Plan of Treatment Upcoming Encounters Date Type Department Care Team (Late st Contact Info) Description 04/15/2024 10:00 AM EST Hospital Encounter [place] [address] Arrived documented as of this encounter Procedures [...] filedocumented in this encounter Care Teams Parts Inspector Relationship Specialty Start Date End Date Lolly Oliveira MD [address] [place] [address] PCP - General 07/17/13 documented as of this encounter
--- OUTSIDE RECORDS SUMMARY | 2024-03-03 11:12 | XMS_ITS | Encounter Summary ---
Author Organization [facility] [place] [address] Care Team Providers Care Alkylation Operator Name Role Phone Lolly Oliveira MD Primary Care Provider [phone] Encounter Details Date Type Department Care Team (Late st Contact Info) Description 03/15/2023 Telephone Cardiology at [address] [phone] Saranya Ma Social History Tobacco Use Types [...] to have an echo done at [facility] prior to her appt withncm there on 05/12/23. Message sent to Dr. Mcmahon asking him to put order in if he would like her to have this done. Saranya Ma Sr. Clinical Procedure Grain Picker/Musical Instrument Supervisor documented in this encounter Plan of Treatment Upcoming Encounters Date Type Department Care Team (Late st Contact Info) Description 04/15/2024 10:00 AM EST Hospital Encounter Non-Invasive [place] [address] Arrived documented as of this encounter Visit Diagnoses Not on filedocumented in this encounter Care Teams Alkylation Operator Relationship Specialty Start Date End Date Lolly Oliveira MD [address] [place] [address] PCP - General 07/17/13 documented as of this encounter
--- OUTSIDE RECORDS SUMMARY | 2024-03-03 11:12 | XMS_ITS | Referral Summary ---
Author Organization [facility] Address [address] [place] [address] Care Team Providers Care Performance Tester Name Role Phone Lolly Oliveira MD Primary Care Provider [phone] Social History Tobacco Use Types Packs/Day Years Used Date Smoking Tobacco: Never Assessed Comments Unknown Sex and Gender Information Value Date Recorded Sex Assigned at Not on file Legal Sex Female 18:31 EST Gender Identity Not on file Sexual Orientation Not on file Plan of Treatment Not on file Insurance [facility] MEDICARE Care Teams Performance Tester Relationship Specialty Start Date End Date Lolly Oliveira MD [address] [place] [address] PCP - General 11/13/08
--- OUTSIDE RECORDS SUMMARY | 2024-03-03 11:12 | XMS_ITS | Encounter Summary ---
Author Organization [facility] Address [address] [place] [address] Care Team Providers Care Appeals Examiner Name Role Phone Lolly Oliveira MD Primary Care Provider [phone] Encounter Details Date Type Department Care Team (Late st Contact Info) Description 03/21/2019 Lab Requisition [facility] Pathology & Laboratory Medicine - [address] [address] Unknown, Provider, Social History Tobacco Use Types [...] 211 - 911 pg/mL 03/22/2019 11:52 EST [facility] Blood VENOUS BLOOD / Unknown 03/16/2019 9:25 EST 03/21/2019 21:35 EST us Provider Unknown CHEMISTRY & BLOOD GAS ORDERA BLES Final Result [facility] [address] [place] [address] documented in this encounter Visit Diagnoses Not on filedocumented in this encounter Care Teams Appeals Examiner Relationship Specialty Start Date End Date Lolly Oliveira MD [address] [place] [address] PCP - General 11/13/08 documented as of this encounter
--- OUTSIDE RECORDS SUMMARY | 2024-03-03 11:12 | XMS_ITS | Encounter Summary ---
Author Organization [facility] [place] [address] Care Team Providers Care Box Car Washer Name Role Phone Lolly Oliveira MD Primary Care Provider [phone] Encounter Details Date Type Department Care Team (Latest Contact Info) Description 04/21/2023 10:00 AM EST - 04/21/2023 11:59 PM EST Hospital Encounter Non-[place] [phone] Discharge Disposition: Home Social History Tobacco Use [...] with spacer fluticasone propionate (Flonase) 50 mcg/actuation [place], Suspension 1 spray by Each Nare [...] AM EST Hospital Encounter Non-[place] [address] Arrived documented as of this [...] filedocumented in this encounter Care Teams Box Car Washer Relationship Specialty Start Date End Date Lolly Oliveira MD [address] [place] [address] PCP - General 07/17/13 documented as of this encounter
--- OUTSIDE RECORDS SUMMARY | 2024-03-03 11:12 | XMS_ITS | Encounter Summary ---
Author Organization [facility] Address [address] [place] [address] Care Team Providers Care Blade Sharpener Name Role Phone Lolly Oliveira MD Primary Care Provider [phone] Encounter Details Date Type Department Care Team (Late st Contact Info) Description 04/25/2009 Orders Only [facility] Laboratory Services - [facility] ([facility]) [address] [place], [place] [id number] Lolly Oliveira MD [address] [place], [place] [phone] Social History Tobacco Use Types Packs/Day Years [...] ? JING ALVARENGA ? Accession #: ? [id number] ? : ? 1950 (Age: 58) ??F [...] ORDERABLES Final Resu lt Performing Organization Address [facility]/State/ZIP Co de Phone Number [facility] [address] [place] [address] documented in this encounter Visit Diagnoses Not on filedocumented in this encounter Care Teams Blade Sharpener Relationship Specialty Start Date End Date Lolly Oliveira MD [address] [place] [address] PCP - General 11/13/08 documented as of this encounter
--- OUTSIDE RECORDS SUMMARY | 2024-03-03 11:12 | XMS_ITS | Encounter Summary ---
Author Organization [facility] [place] [address] Care Team Providers Care Instructional Support Specialist Name Role Phone Lolly Oliveira MD Primary Care Provider [phone] Encounter Details Date Type Department Care Team (Late st Contact Info) Description 05/18/2023 Telephone Dermatology at [address] [address] Nora Meredith LPN Social [...] [facility] Encounter [place] [address] Arrived documented as of this encounter Visit Diagnoses Not on filedocumented in this encounter Care Teams Instructional Support Specialist Relationship Specialty Start Date End Date Lolly Oliveira MD [address] [place] [address] PCP - General 07/17/13 documented as of this encounter
--- OUTSIDE RECORDS SUMMARY | 2024-03-03 11:12 | XMS_ITS | Encounter Summary ---
Author Organization [facility] Address [address] [place] [address] Care Team Providers Care Cartographic Engineer Name Role Phone Lolly Oliveira MD Primary Care Provider [phone] Encounter Details Date Type Department Care Team (Late st Contact Info) Description 06/16/2012 Results Only [facility] Laboratory Services - [facility] ([facility]) [address] [place], [place] [phone] Lolly Oliveira MD [address] [place], [place] [phone] Social History Tobacco Use Types Packs/Day Years [...] ? JING ALVARENGA ? Accession #: ? [id number] : ? 1950 (Age: 61) ??F ?Collect [...] Final Resu lt [facility] [address] [place] [address] documented in this encounter Visit Diagnoses Not on filedocumented in this encounter Care Teams Cartographic Engineer Relationship Specialty Start Date End Date Lolly Oliveira MD [address] [place] [address] PCP - General 11/13/08 documented as of this encounter
--- OUTSIDE RECORDS SUMMARY | 2024-03-03 11:12 | XMS_ITS | Encounter Summary ---
Author Organization [facility] Address [address] [place] [address] Care Team Providers Care Chief Mechanical Engineer Name Role Phone Lolly Oliveira MD Primary Care Provider [phone] Encounter Details Date Type Department Care Team (Late st Contact Info) Description 05/29/2002 Results Only [facility] [place] conversion [address] [place] [address] Silvia Diehl, [address] [place] [address] Social History Tobacco Use Types Packs/Day Years [...] Name: ? LYLEJING ? Accession #: ? [id number] : ? 1950 (Age: 51) ??F ?Collect Date: ? 05/29/2002 Location: ? [facility] ? Receive Date: ? 05/31/2002 Provider: ?SILVIA DIEHL PATIENT SERVICES ASSISTANT Copy to: ? Specimen/Source: ?ThinPrep Pap [...] [facility] 05/29/2002 05/31/2002 us Silvia Diehl PATIENT SERVICES ASSISTANT PATHOLOGY ORDERABLES Final R esult [facility] [address] [place] [address] documented in this encounter Visit Diagnoses Not on filedocumented in this encounter Care Teams Chief Mechanical Engineer Relationship Specialty Start Date End Date Lolly Oliveira MD [address] [place] [address] PCP - General 11/13/08 documented as of this encounter
--- OUTSIDE RECORDS SUMMARY | 2024-03-03 11:12 | XMS_ITS | Encounter Summary ---
Author Organization [facility] Address [address] [place] [address] Care Team Providers Care Process Consultant Name Role Phone Unavailable Primary Care Provider Unavailabl e Encounter Details Date Type Department Care Team (Late st Contact Info) Description 11/07/2008 Orders Only [facility] Laboratory Services - [facility] ([facility]) [address] [place] [address] Kenneth Parker MD [address] [place] [address] Social History Tobacco Use Types Packs/Day Years [...] ? JING ALVARENGA ? Accession #: ? [id number] ? : ? 1950 (Age: 58) ??F [...] ORDERABLES Final Resu lt [facility] [address] [place] [address] documented in this encounter Visit Diagnoses Not on filedocumented in this encounter
--- OUTSIDE RECORDS SUMMARY | 2024-03-03 11:12 | XMS_ITS | Encounter Summary ---
Author Organization [facility] Address [facility] [place] [address] Care Team Providers Care Associate Professor Physician Name Role Phone Lolly Oliveira MD Primary Care Provider Encounter Details Date Type Department Care Team (Late st Contact Info) Description 03/15/2023 Orders Only Cardiology at [address] [address] Lalit Mcmahon MD [facility] [place] [address] Nonischemic cardiomyopathy; Biventricular ICD (implantable cardioverter-defibrill ator) [...] AM EST Hospital Encounter Non[place] [address] Arrived documented as of this encounter Visit Diagnoses Diagnosis Nonischemic cardiomyopathy Other primary cardiomyopathies Biventricular ICD (implantable cardioverter-defibrillator) in place documented in this encounter Care Teams Associate Professor Physician Relationship Specialty Start Date End Date Lolly Oliveira MD [address] [place] [address] PCP - General 07/17/13 documented as of this encounter
--- OUTSIDE RECORDS SUMMARY | 2024-03-03 11:12 | XMS_ITS | Encounter Summary ---
Author Organization [facility] Address [address] [place] [address] Care Team Providers Care Integration Consultant Name Role Phone Lolly Oliveira MD Primary Care Provider [phone] Encounter Details Date Type Department Care Team (Late st Contact Info) Description 04/01/2005 Results Only [facility] conversion [address] [place] [address] Blair Dukes MD [address] [place] [id number] Social History Tobacco Use Types Packs/Day Years [...] ? JING ALVARENGA ? Accession #: ? [id number] ? : ? 1950 (Age: 54) ??F [...] ? Received in [place]' s fixative labelled [place] and #1 ??terminal ileum bx is a single 0.3 x 0.2 x 0.2 cm tissue, submitted intact as (A). Received in [place]' s fixative labelled [place] and #2 ??transverse colon bx is a single 0.2 x 0.2 x 0.2 cm tissue, submitted intact as (B). ??(Dr. Lechuga)/[facility] End of Report [facility] 04/01/2005 04/02/2005 15: 24 EST us Blair Dukes MD PATHOLOGY ORDERABLES Final Resul t [facility] [address] [place] [address] documented in this encounter Visit Diagnoses Not on filedocumented in this encounter Care Teams Integration Consultant Relationship Specialty Start Date End Date Lolly Oliveira MD [address] [place] [address] PCP - General 11/13/08 documented as of this encounter
--- OUTSIDE RECORDS SUMMARY | 2024-03-03 11:12 | XMS_ITS | Encounter Summary ---
Author Organization [facility] [place] [address] Care Team Providers Care Clinical Partner Name Role Phone Lolly Oliveira MD Primary Care Provider [phone] Encounter Details Date Type Department Care Team (Latest Contact Info) Description 07/20/2023 10:00 AM EDT - 07/20/2023 11:59 PM EDT Hospital Encounter [place] [phone] Discharge Disposition: Home Social History Tobacco Use [...] with spacer fluticasone propionate (Flonase) 50 mcg/actuation [place], Suspension 1 spray by Each Nare route daily as needed. documented as of this encounter Plan of Treatment Upcoming Encounters Date Type Department Care Team (Late st Contact Info) Description 04/15/2024 10:00 AM EST Hospital Encounter [place] [address] Arrived documented as of this encounter Procedures [...] filedocumented in this encounter Care Teams Clinical Partner Relationship Specialty Start Date End Date Lolly Oliveira MD [address] [place] [address] PCP - General 07/17/13 documented as of this encounter
--- OUTSIDE RECORDS SUMMARY | 2024-03-03 11:12 | XMS_ITS | Encounter Summary ---
Author Organization [facility] Address [facility] [place] [address] Care Team Providers Care Secretary Of Police Name Role Phone Lolly Oliveira MD Primary Care Provider [phone] Encounter Details Date Type Department Care Team (Late st Contact Info) Description 01/29/2023 Notes Only Cardiology at [address] [address] Merle Lin PA [facility] [place] [place] [address] Social History Tobacco Use Types Packs/Day Years [...] pdf document Date of transmission: 01/29/2023 Device um rn: BSI Device type: OSCILLOGRAPH TECHNICIAN-D Presenting rhythm: /RVP/LVP AP 21% Right MATERNITY NURSE 100% Left MATERNITY NURSE: 100% Battery: 10.5 years [employer] Index rising in setting of increasing S3 intensity, increasing respiratory rate, increasing night heart rate, and increasing mean heart rate. MICKEY Villa 01/29/2023 9:06 AM documented in this encounter Plan of Treatment Upcoming Encounters Date Type Department Care Team (Late st Contact Info) Description 04/15/2024 10:00 AM EST Hospital Encounter [place] [address] Arrived documented as of this encounter Visit Diagnoses Not on filedocumented in this encounter Care Teams Secretary Of Police Relationship Specialty Start Date End Date Lolly Oliveira MD [address] [place] [address] PCP - General 07/17/13 documented as of this encounter
--- OUTSIDE RECORDS SUMMARY | 2024-03-03 11:12 | XMS_ITS | Clinical Summary ---
Author Organization [facility] [place] [address] Care Team Providers Care Rug Setter Velvet Name Role Phone Lolly Oliveira MD Primary Care Provider [phone] Allergies Active Allergy Reactions Criticality Noted Date [...] PM EST Hospital Encounter Non-In[place] [address] Discharge Disposition: Home from Last [...] AM EST Hospital Encounter Non-Invasive [place] [address] Arrived Health Maintenance Due Date Last Done Comments CT Colonography 1950 Colonoscopy 1950 Colorectal Cancer Screening 1950 FIT DNA 1950 FIT 1950 Sigmoidoscopy (10 year) with FIT yearly 1950 Sigmoidoscopy 1950 Hepatitis C Screening 1966 Tetanus/Diphtheria/Pertussis Vaccines (1 - Tdap) 08/09 Pneumoccocal Vaccine: 65+ (1 of 1 - PCV) 1998 Zoster vaccine (1 of 2) 1998 Advance Directive 08/10/2003 Bone Density Scan 2013 RSV Vaccine (1 - 1-dose 75+ series) 08/10/2023 Covid-19 Vaccine (1 - 2023- season) 2023 Influenza (Flu) vaccine (1 o f 1 - Influenza standard series) 11/07/2023 Medical Devices Implanted Type Area Software Project Engineer Device Identifier Shelf Expiration Date Model / Serial / Lot Bsx: [id number]: 454674-8/18/2 023 Implanted: by Lalit Mcmahon MD (Quantity not on file) Defibrillator Chest Wall [employer] [id number] / [id number] / Bsx: [id number]: 531503-4/18/2 023 Implanted: by Lalit Mcmahon MD (Quantity not on file) Lead Heart [employer] 4674 / [id number] / Bsx: [id number]: [id number] Implanted: by Lalit Mcmahon MD (Quantity not on file) Lead Heart [employer] [id number] / [id number] / Bsx: 0672: 880596-4/18/2 023 Implanted: by Lalit Mcmahon MD (Quantity not on file) Lead Heart [employer] 0672 / [id number] / Advance Directives * Attempt Cardiopulmonary Resuscitation - Inpatient (Latest Code Status on File) Date Activated Date Inactivated Comments 07/23/2022 4:30 PM 07/24/2022 12:32 PM Question Answer Comments Code Status decision made by: Patient Care Teams Rug Setter Velvet Relationship Specialty Start Date End Date Lolly Oliveira MD [address] [place] [address] PCP - General 07/17/13
--- OUTSIDE RECORDS SUMMARY | 2024-03-03 11:12 | XMS_ITS | Encounter Summary ---
Author Organization [facility] Address [address] [place] [address] Care Team Providers Care Survival Equipment Repairer Name Role Phone Lolly Oliveira MD Primary Care Provider [phone] Encounter Details Date Type Department Care Team (Late st Contact Info) Description 05/27/2021 Lab Requisition [facility] Pathology & Laboratory Medicine - [address] [address] Iman Moran, DO [address] [facility] [address] [place], [place] [phone] Encounter for other general examination Social History [...] explore management options, if applicable. 05/30/2021 13:31 [facility] Final Diagnosis A. COLON, POLYP AT 90 CM, BIOPSY/POLYPECTOM Y: - Tubular adenoma. 05/30/2021 13:31 [facility] Attestation By the signature below, the attending physician certifies that they have 1) personally conducted a gross and/or microscopic examination of the described specimen(s), and/or personally interpreted the results of laboratory testing of the described specimen(s), and 2) personally rendered or confirmed the above diagnosis. 05/30/2021 13:31 [facility] at 1331 Clinical History Severe diverticula and polypectomy x1 05/30/2021 13:31 [facility] Gross Description A. Received in formalin labelled with proper patient identification (initials J, K) and colon polyp x1 at 90 cm is a light pineda polypoid tissue measuring 0.2 x 0.2 x 0.2 cm. Submitted intact in A1. MICKEY CARLOS(ASCP) 05/27/2021 19:11 05/30/2021 13:31 [facility] Performing Lab [facility] 05/30/2021 13:31 [facility] Scanned Images 05/30/2021 13:31 [facility] Tissue ENTIRE COLON / Unknown 05/27/2021 11:23 EDT 05/27/2021 16:33 EDT us Iman Moran DO PATHOLOGY ORDERABLES Final Re sult [facility] [address] [place] [address] documented in this encounter Visit Diagnoses Diagnosis Encounter for other general examination documented in this encounter Care Teams Survival Equipment Repairer Relationship Specialty Start Date End Date Lolly Oliveira MD [address] [place] [address] PCP - General 11/13/08 documented as of this encounter
--- OUTSIDE RECORDS SUMMARY | 2024-03-03 11:12 | XMS_ITS | Encounter Summary ---
Author Organization [facility] [place] [address] Care Team Providers Care Covering Machine Operator Helper Name Role Phone Lolly Oliveira MD Primary Care Provider [phone] Encounter Details Date Type Department Care Team [...] AM EST Hospital Encounter Non-Invasive [place] [address] Arrived documented as of this encounter Visit Diagnoses Not on filedocumented in this encounter Care Teams Covering Machine Operator Helper Relationship Specialty Start Date End Date Lolly Oliveira MD [address] [place] [address] PCP - General 07/17/13 documented as of this encounter
--- OUTSIDE RECORDS SUMMARY | 2024-03-03 11:12 | XMS_ITS | Encounter Summary ---
Author Organization [facility] Address [facility] [place] [address] Care Team Providers Care Clinical Investigator Name Role Phone Lolly Oliveira MD Primary Care Provider [phone] Encounter Details Date Type Department Care Team (Late st Contact Info) Description 05/03/2023 Telephone Cardiology at [address] [phone] Lalit Mcmahon MD [facility] [place] [address] Social History Tobacco Use Types Packs/Day Years [...] AM EST Hospital Encounter Non-Invasive [place] [address] Arrived documented as of this encounter Visit Diagnoses Not on filedocumented in this encounter Care Teams Clinical Investigator Relationship Specialty Start Date End Date Lolly Oliveira MD [address] [place] [address] PCP - General 07/17/13 documented as of this encounter
--- OUTSIDE RECORDS SUMMARY | 2024-03-03 11:12 | XMS_ITS | Encounter Summary ---
Author Organization Pending Sale To [place] [address] Care Team Providers Care Field Service Consultant Name Role Phone Lolly Oliveira MD Primary Care Provider [phone] Encounter Details Date Type Department Care Team (Latest Contact Info) Description 01/21/2023 10:00 AM EST - 01/21/2023 11:59 PM EST Hospital Encounter [place] [phone] Discharge Disposition: Home Social History Tobacco Use [...] with spacer fluticasone propionate (Flonase) 50 mcg/actuation [place], Suspension 1 spray by Each Nare route [...] AM EST Hospital Encounter [place] [address] Arrived documented as of this [...] in this encounter Care Teams Field Service Consultant Relationship Specialty Start Date End Date Lolly Oliveira MD [address] [place] [address] PCP - General 07/17/13 documented as of this encounter
--- OUTSIDE RECORDS SUMMARY | 2024-03-03 11:12 | XMS_ITS | Encounter Summary ---
Author Organization [facility] [place] [address] Care Team Providers Care Turkey Roll Maker Name Role Phone Lolly Oliveira MD Primary Care Provider [phone] Reason for Visit * Reason Comments Follow-up 8 weeks UVB treatmen t twice weekly Encounter Details Date Type Department Care Team (Late st Contact Info) Description 07/19/2023 11:00 AM EDT Office Visit Dermatology at [address] [phone] Clay Ramírez MD [address], ERIKA A DERMATOLOGY [place], [place] [id number] Psoriasis Social History Tobacco Use Types Packs/Day [...] [facility] Hospital Encounter Non-Invasive [place] [address] Arrived documented as of this encounter Visit Diagnoses Diagnosis Psoriasis Other psoriasis documented in this encounter Care Teams Turkey Roll Maker Relationship Specialty Start Date End Date Lolly Oliveira MD [address] [place] [address] PCP - General 07/17/13 documented as of this encounter
--- OUTSIDE RECORDS SUMMARY | 2024-03-03 11:12 | XMS_ITS | Encounter Summary ---
Author Organization [facility] Address [address] [place] [address] Care Team Providers Care Farmworker Field Crop Name Role Phone Lolly Oliveira MD Primary Care Provider [phone] Encounter Details Date Type Department Care Team (Late st Contact Info) Description 02/11/2021 Lab Requisition [facility] Pathology & Laboratory Medicine - [address] [phone] Outr Resulting Lab, Provider Social History Tobacco [...] GENER AL ORDERABLES Final Result [facility] [address] [place] [address] * COVID-19 TESTING (02/11/2021 8:00 EST) COVID-19 rt-PCR Result Negative Negative 02/12/2021 14:17 EST [facility] Comment: This test has not [...] performed using the med SARS-CoV-2 assay ([employer] on the Med 6800 System Performing Lab Med [address] [facility] Lab 02/12/2021 14:17 EST [facility] Swab 02/11/2021 8:00 EST 02/11/2021 22:22 EST us Provider Outr Resulting Lab MICROBIOLOGY - GENER AL ORDERABLES Final Result [facility] [address] [place] [address] documented in this encounter Visit Diagnoses Not on filedocumented in this encounter Care Teams Farmworker Field C[employer] Relationship Specialty Start Date End Date Lolly Oliveira MD [address] [place] [address] PCP - General 11/13/08 documented as of this encounter
--- OUTSIDE RECORDS SUMMARY | 2024-03-03 11:12 | XMS_ITS | Data Portability ---
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 05/21/2023 Can You Handle Your Own Money Without Help? Yes [email or web address] Information not available 05/21/2023 Are You Having Difficulties Driving Your Car? No ygvkfcxo49 Information no t available 05/21/2023 Do You Always Fasten Your Seat Belt When You Are In A Car? Yes- Usually [email or web address] Information not available 05/21/2023 How Often During The Past Four Weeks Have You Been Bothered By Any Of The Following Problems? Falling Or Dizzy When Standing Up? Never mxtoltsk90 Information not available 05/21/2023 Sexual Problems? Never adszeryo75 Informat ion not available 05/21/2023 Trouble Eating Well? Sometimes alhgubty81 Information not available 05/21/2023 Teeth Or Denture Problems? Sometimes tlrihrnl82 Information not available 05/21/2023 Problems Using The Telephone? Never [email or web address] Information not available 05/21/2023 Tiredness Or Fatigue? Sometimes ujgfebqk67 Information not available 05/21/2023 Have You Had 2 Or More Falls Or Sustained An Injury With A Fall In The Last Year? No [email or web address] Information no t available 05/21/2023 Do You Have Difficulty With Walking Or Balance? No wvqctvzu50 Information not available 05/21/2023 Do You Currently Use A Hearing Device? No uuhuhghk97 Information not available 05/21/2023 Do You Currently Have Any Trouble With Your Vision? Yes oqfmlnvf38 Information no t available 05/21/2023 Do You Exercise For About 20 Minutes Three Or More Days A Week? Yes- Most Of The Time ovyesitq68 Information not available 05/21/2023 Are There Any Safety Concerns In Your Home (see Attached [facility] Pamphlet)? No gkxofwmb61 Information not available 05/21/2023 How Often Do You Have Trouble Taking Medicines The Way You Have Been Told To Take Them? I Always Take Them As Prescribed [email or web address] Information not available 05/21/2023 How Confident Are You That You Can Control And Manage Most Of Your Health Problems? Very Confident macstzxe69 Information not available 05/21/2023 Do You Currently Have Any Difficulty With Your Hearing? No pfceatnr86 Information not available 05/21/2023 Date Of Most Recent SBINS 05/21/2023 [email or web address] Information not available 05/21/2023 What Was The [...] preservative free, adsorbed 9 completed Not Available [facility] 01/15/2023 04:53:39 Tdap 8 completed Not Available [facility] 01/15/2023 04:53:39 zoster live 3 completed Not Available [facility] 01/15/2023 04:53:40 Pneumococcal conjugate PCV 13 6 completed Not Available [facility] 01/15/2023 04:53:40 Influenza, high-dose, trivalent, PF 8 completed Not Available [facility] 01/15/2023 04:53:41 Td(adult) unspecified formulation 3 completed Not Available [facility] 01/15/2023 04:53:41 Influenza, split virus, trivalent, preservative 6 completed Not Available [facility] 01/15/2023 04:53:41 Influenza, split virus, trivalent, preservative 5 completed Not Available [facility] 01/15/2023 04:53:41 Influenza, split virus, quadrivalent, PF 9 completed Not Available [facility] 01/15/2023 04:53:41 zoster recombinant 9 completed Not Available [facility] 01/15/2023 04:53:42 zoster recombinant 8 completed Not Available [facility] 01/15/2023 04:53:42 Influenza, high-dose, quadrivalent, PF 1 completed Not Available [facility] 01/15/2023 04:53:43 Influenza, high-dose, quadrivalent, PF 0 completed Not Available [facility] 01/15/2023 04:53:43 Influenza, high-dose, quadrivalent, PF 2 completed Not Available [facility] 01/15/2023 04:53:43 COVID-19, mRNA, LNP-S, PF, 100 mcg/0.5mL dose or 50 mcg/0.25mL dose 2 completed Not Available [facility] 01/15/2023 04:53:43 COVID-19 vaccine, vector-nr, rS-Ad26, PF, 0.5 mL 1 completed Not Available [facility] 01/15/2023 04:53:44 SARS-COV-2 (COVID-19) vaccine, UNSPECIFIED 1 completed Not Available [facility] 01/15/2023 04:53:44 SARS-COV-2 (COVID-19) vaccine, UNSPECIFIED 1 completed Not Available [facility] 01/15/2023 04:53:44 pneumococcal polysaccharide PPV23 5 completed Not Available [facility] 01/15/2023 04:53:45 Hep B, unspecified formulation 4 completed Not Available [facility] 01/15/2023 04:53:45 Hep B, unspecified formulation 3 completed Not Available [facility] 01/15/2023 04:53:46 Hep B, unspecified formulation 3 completed Not Available [facility] 01/15/2023 04:53:46 influenza, unspecified formulation 0 completed Not Available [facility] 01/15/2023 04:53:47 influenza, unspecified formulation 3 completed Not Available [facility] 01/15/2023 04:53:47 influenza, unspecified formulation 9 completed Not Available [facility] 01/15/2023 04:53:47 influenza, unspecified formulation 1 completed Not Available [facility] 01/15/2023 04:53:47 influenza, unspecified formulation 7 completed Not Available [facility] 01/15/2023 04:53:48 influenza, unspecified formulation 4 completed Not Available [facility] 01/15/2023 04:53:48 influenza, unspecified formulation 8 completed Not Available [facility] 01/15/2023 04:53:48 influenza, unspecified formulation 2 completed Not Available [facility] 01/15/2023 04:53:48 Influenza, high-dose, quadrivalent, PF 3 completed Not Available [facility] 03/19/2023 05:33:03 COVID-19, mRNA, LNP-S, PF, herminio-sucrose, 30 mcg/0.3 mL 3 completed Not Available [facility] 03/19/2023 05:33:03 COVID-19, mRNA, LNP-S, bivalent, PF, 50 mcg/0.5 mL or 25mcg/0.25 mL dose 4 completed DENYS Bauer, [facility] 12/20/2023 15:23:33 Respiratory syncytial virus (RSV) vaccine, unspecified 4 completed DENYS Bauer, [facility] 12/20/2023 15:24:29 influenza, unspecified formulation 4 completed DENYS Bauer, [facility] 12/20/2023 15:25:14 Past Encounters Encounter ID Performer Location Encounter Start Date Encounter Closed Date Diagnosis/Indication Diagnosis SNOMED-CT Code Diagnosis ICD10 Code [id number] LOLLY CORTEZ MD [address] [address] 05/21/2023 10:03:54 05/21/2023 11:37:49 Onychomycosis 730787624 B35.1 Asthma 645144349 J45.90 9 Cardiomyopathy 06396819 I10 Disorder of hip joint 42 9544869 M12.859 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 Hyperlipidemia 83183528 E78.5 Vulval and /or perineal noninflammatory disorders 013060266 N90.9 Adult heal th examination 515351186 Z00.[id number] [place] [address] 09/01/2023 10:23:16 09/01/2023 13:28:10 Vertigo 199602647 R42 Impacted c erumen of bilateral ears 2368278241 805100 H61.23 [id number] LOLLY CORTEZ MD [facility] [address] [place] [address] 11/26/2023 07:26:08 11/26/2023 08:10:59 Screening mammography 15084371 Z12.31 Adjustment disorder 1722 6007 F43.20 Asthma 961034488 J45.90 9 Essential hypertension 52445344 I10 Guttate psoriasis 153882 00 L40.4 Cardiomyopathy 63095587 I10 Hyperlipidemia 44344301 E78.5 Prediabetes 789164585 R7 3.03 Health Concerns Section Related Observation LastModified by Organization Detai ls LastModified Time None Recorded Concern Status LastModified by Organization Details LastModified Time None Recorded Advance Directives Directive None Recorded Payers Encounter Date Sequence Insurance Name Policy Number Policy Lema Covered Member ID Lema Member ID Guarantor Name 05/21/2023 1 [place] - [place]PO) [id number] Luna Mott [id number] Luna Mott 09/01/2023 1 [place] - [place]) [id number] Luna Mott [id number] Luna Lunaslin 11/26/2023 1 [place] - [place]) [id number] Luna Lunaslin [id number] Luna Mott Notes Date Note Type Note Provider Name and Address Organization Details Recorded Time 05/21/2023 text/html Thais here today for an annual wellness exam MD [address], [place], [address], [facility]. 05/24/2023 18:32:35 09/01/2023 text/html Luna [...] it. JESSICA INGRAM PA-C [address], [place], [address], [facility]. 09/01/2023 13:55:07 11/26/2023 text/html Thais here today for follow-up of cardiomyopathy, obesity MD [address], [place], [address], [facility]. 11/28/2023 09:26:44 OBGyn Episode No OBEpisode recorded.
--- OUTSIDE RECORDS SUMMARY | 2024-03-03 11:12 | XMS_ITS | Encounter Summary ---
Author Organization [facility] Address [address] [place] [address] Care Team Providers Care Building Rental Superintendent Name Role Phone Lolly Oliveira MD Primary Care Provider [phone] Encounter Details Date Type Department Care Team (Late st Contact Info) Description 11/13/2020 Lab Requisition [facility] Pathology & Laboratory Medicine - [address] [address] Outr Resulting Lab, Provider Social History Tobacco [...] MICROBIOLOGY - GENER AL ORDERABLES Final Result [facility] [address] [place] [address] * COVID-19 TESTING (11/13/2020 7:30 EDT) COVID-19 rt-PCR Result Negative Negative 11/14/2020 11:46 EDT [facility] Comment: This test has [...] performed using the med SARS-CoV-2 assay ([employer] on the Med 6800 System Performing Lab Med [address] [facility] Lab 11/14/2020 11:46 EDT [facility] Swab 11/13/2020 7:30 EDT 11/13/2020 20:57 EDT us Provider Outr Resulting Lab MICROBIOLOGY - GENER AL ORDERABLES Final Result Performing Organization Address [place] Co de Phone Number [facility] [address] [place] [address] documented in this encounter Visit Diagnoses Not on filedocumented in this encounter Care Teams Building Rental Superintendent Relationship Specialty Start Date End Date Lolly Oliveira MD [address] [place] [address] PCP - General 11/13/08 documented as of this encounter
--- OUTSIDE RECORDS SUMMARY | 2024-03-03 11:12 | XMS_ITS | Encounter Summary ---
Author Organization [facility] Address [address] [place] [address] Care Team Providers Care Bean Weigher Name Role Phone Lolly Oliveira MD Primary Care Provider [phone] Encounter Details Date Type Department Care Team (Late st Contact Info) Description 04/12/2007 Results Only [facility] [place] [address] [place] [address] Lolly Oliveira MD [address] [place], [place] [id number] Social History Tobacco Use Types Packs/Day Years [...] ? JING ALVARENGA ? Accession #: ? [id number] : ? 1950 (Age: 56) ??F ?Collect Date: ? 04/12/2007 Location: ? [facility] ? Receive Date: ? 04/13/2007 Provider: ?LOLLY OLIVEIRA MD Copy to: ? Specimen/Source: ?ThinPrep Pap Test, Cervix/Endocervix, processed on [employer] ThinPrep Imaging System, with manual evaluation Last [...] Date: ??04/18/2007 12:31 End of Report [facility] 04/12/2007 04/13/2007 us Lolly Oliveira MD PATHOLOGY ORDERABLES Final Resu lt [facility] [address] [place] [address] documented in this encounter Visit Diagnoses Not on filedocumented in this encounter Care Teams Bean Weigher Relationship Specialty Start Date End Date Lolly Oliveira MD [address] [place] [address] PCP - General 11/13/08 documented as of this encounter
--- OUTSIDE RECORDS SUMMARY | 2024-03-03 11:13 | XMS_ITS | Encounter Summary ---
Author Organization [place] [address] Care Team Providers Care Software Engineering Supervisor Name Role Phone Lolly Oliveira MD Primary Care Provider [phone] Reason for Visit * Reason Comments Follow-up Encounter Details Date Type Department Care Team (Late st Contact Info) Description 07/02/2022 8:00 AM EDT Office Visit Dermatology at [address] [phone] Clay Ramírez MD [address] [facility] [place] [address] Psoriasis, guttate Social History Tobacco Use Types [...] [facility] Hospital Encounter [place] [address] Arrived documented as of this encounter Visit Diagnoses Diagnosis Psoriasis, guttate Other psoriasis documented in this encounter Care Teams Software Engineering Supervisor Relationship Specialty Start Date End Date Lolly Oliveira MD [address] [place] [address] PCP - General 07/17/13 documented as of this encounter
--- OUTSIDE RECORDS SUMMARY | 2024-03-03 11:13 | XMS_ITS | Encounter Summary ---
[place] [address] Care Team Providers Care Domestic Freight Forwarder Name Role Phone Lolly Oliveira MD Primary Care Provider [phone] Encounter Details Date Type Department Care Team (Late st Contact Info) Description 04/09/2022 Refill Dermatology at [address] [address] Nora Meredith, PHYSICIAN OFFICE NURSE Social History Tobacco Use Types Packs/Day Years [...] [facility] Hospital Encounter Non-Invasive [place] [address] Arrived documented as of this encounter Visit Diagnoses Not on filedocumented in this encounter Care Teams Domestic Freight Forwarder Relationship Specialty Start Date End Date Lolly Oliveira MD [address] [place] [address] PCP - General 07/17/13 documented as of this encounter
--- OUTSIDE RECORDS SUMMARY | 2024-03-03 11:13 | XMS_ITS | Encounter Summary ---
Author Organization [facility] [place] [address] Care Team Providers Care Hog Man Name Role Phone Unavailable Primary Care Provider Unavailabl e Encounter Details Date Type Department Care Team (Late st Contact Info) Description 07/04/2012 [place] [address] Eleno Christian MD Social History Tobacco Use [...] AM EST Hospital Encounter [place] [address] Arrived documented as of this encounter Procedures [...]
--- OUTSIDE RECORDS SUMMARY | 2024-03-03 11:13 | XMS_ITS | Encounter Summary ---
Author Organization [facility] [place] [address] Care Team Providers Care Hydraulic Mechanic Name Role Phone Lolly Oliveira MD Primary Care Provider [phone] Reason for Visit * Reason Onset Date Comments Other 07/24/2022 Implanted Cardia c Device Teaching/Education Encounter Details Date Type Department Care Team (Late st Contact Info) Description 07/24/2022 Notes Only Cardiology at [address] [phone] Letha Arroyo Other (Implanted Cardiac Device Teaching/Education) [...] to call the Cardiac Device Clinic at [phone] with any questions. Plan: Post op check: [...] [facility] Encounter Non-[place] [address] Arrived documented as of this encounter Visit Diagnoses Not on filedocumented in this encounter Care Teams Hydraulic Mechanic Relationship Specialty Start Date End Date Lolly Oliveira MD [address] [place] [address] PCP - General 07/17/13 documented as of this encounter
--- OUTSIDE RECORDS SUMMARY | 2024-03-03 11:13 | XMS_ITS | Encounter Summary ---
[place] [address] Care Team Providers Care Pharmacy Cashier Name Role Phone Lolly Oliveira MD Primary Care Provider [phone] Encounter Details Date Type Department Care Team (Late st Contact Info) Description 07/17/2013 Orders [place] [phone] Lolly Oliveira MD [address] [place], [place] [phone] Social History Tobacco Use Types Packs/Day Years [...] AM EST Hospital Encounter Non-Invasive [place] [address] Arrived documented as of this encounter Procedures Procedure Name Priority Date/Time Associated Diagnosis Comments REQUEST FOR 2ND READ MAMMO Routine 07/17/2013 8:45 AM EDT documented in this encounter Results * Request for 2nd read Mammo (07/17/2013 8:45 AM EDT) Anatomical Region Laterality Modality Other 07/17/2013 8:45 AM EDT Narrative 07/17/2013 3:57 PM EDT INTERPRETATION OF OUTSIDE MAMMOGRAMS (PERFORMED ON 07/06/13 AND 07/14/13) FROM [facility] DATED 07/17/13: ?? DIAGNOSTIC IMAGING SUMMARY: ?? [...] OUTSIDE MAMMOGRAMS (PERFORMED ON 07/06/13 AND 07/14/13) [facility] DATED 07/17/13: DIAGNOSTIC IMAGING SUMMARY: [...] filedocumented in this encounter Care Teams Pharmacy Cashier Relationship Specialty Start Date End Date Lolly Oliveira MD [address] [place] [address] PCP - General 07/17/13 documented as of this encounter
--- OUTSIDE RECORDS SUMMARY | 2024-03-03 11:13 | XMS_ITS | Encounter Summary ---
Author Organization Count Includes [facility] [address] Care Team Providers Care Electrical Designer Name Role Phone Lolly Oliveira MD Primary Care Provider [phone] Encounter Details Date Type Department Care Team (Late st Contact Info) Description 10/09/2021 Telephone Dermatology at [address] [address] Nora Meredith LPN Social History [...] [facility] Encounter [place] [address] Arrived documented as of this encounter Visit Diagnoses Not on filedocumented in this encounter Care Teams Electrical Designer Relationship Specialty Start Date End Date Lolly Oliveira MD [address] [place] [address] PCP - General 07/17/13 documented as of this encounter
--- OUTSIDE RECORDS SUMMARY | 2024-03-03 11:13 | XMS_ITS | Encounter Summary ---
Author Organization [facility] [place] [address] Care Team Providers Care Supervisor Cap And Hat Production Name Role Phone Lolly Oliveira MD Primary Care Provider [phone] Encounter Details Date Type Department Care Team (Latest Contact Info) Description 07/18/2013 Orders [place] [address] Alia Fraire MD Mammographic microcalcification (Primary Dx) [...] st Contact Info) Description 04/15/2024 10:00 AM [facility] Hospital Encounter [place] [address] Arrived documented as of this encounter Results [...] are present on specimen digital X-ray. [facility] [employer] 13 Cylinder marker clip was [...] calcifications are present on specimendigital X-ray. [facility] [employer] 13 Cylinder marker clip was [...] does not layer and, therefore, are not franchise sales representative of milk of calcium. Again, [...] does not layer and, therefore, are not franchise sales representative of milk of calcium. Again, these have an amorphous andpunctate appearance and remain indeterminate. Stereotactic guided biopsy isrecommended. Alia Fraire MD IMG MAMMO ORDERABLES documented in this encounter Visit Diagnoses Diagnosis Mammographic microcalcification- Primary Mammographic microcalcification Mammographic microcalcification Mammographic microcalcification Mammographic microcalcification documented in this encounter Care Teams Supervisor Cap And Hat Production Relationship Specialty Start Date End Date Lolly Oliveira MD [address] [place] [address] PCP - General 07/17/13 documented as of this encounter
--- OUTSIDE RECORDS SUMMARY | 2024-03-03 11:13 | XMS_ITS | Encounter Summary ---
Author Organization [facility] [place] [address] Care Team Providers Care Associate Sales Manager Name Role Phone Lolly Oliveira MD Primary Care Provider [phone] Reason for Referral * Diagnostic Test (Routine) - Closed Specialty Diagnoses / Procedures Referred By Contac t Referred To Contact Radiology Diagnoses Left bundle branch block Nonischemic cardiomyopathy Procedures MRI Cardiac Morphology Function With Flow Velocity Quantification wwo Contrast MRI Cardiac Morphology Function wwo Contrast Lalit Mcmahon MD [facility] [place] [address] [place] [address] Referral ID Status Reason Start Date Expiration Date V isits Requested Visits Authorized [id number] Closed Specialty Service Requested 05/06/2022 11/07/2023 2 1 Encounter Details Date Type Department Care Team (Late st Contact Info) Description 05/06/2022 Orders Only Cardiology at [address] [address] Lalit Mcmahon MD [facility] [place] [address] Left bundle branch block; Nonischemic cardiomyopathy Social [...] AM EST Hospital Encounter Non-[place] [address] Arrived documented as of this encounter Results [...] have questions please contact the health lawn care specialist that requested your imaging first. [...] who have questions please contactthe health lawn care specialist that requested your imaging first. Lalit Mcmahon MD IMG MRI ORDERABLES documented in this encounter Visit Diagnoses Diagnosis Left bundle branch block Other left bundle branch block Nonischemic cardiomyopathy Other primary cardiomyopathies Left bundle branch block Other left bundle branch block Nonischemic cardiomyopathy Other primary cardiomyopathies documented in this encounter Care Teams Associate Sales Manager Relationship Specialty Start Date End Date Lolly Oliveira MD [address] [place] [address] PCP - General 07/17/13 documented as of this encounter
--- OUTSIDE RECORDS SUMMARY | 2024-03-03 11:13 | XMS_ITS | Encounter Summary ---
Author Organization [facility] [place] [address] Care Team Providers Care Campus Chaplain Name Role Phone Lolly Oliveira MD Primary Care Provider [phone] Encounter Details Date Type Department Care Team (Latest Contact Info) Description 07/26/2013 9:45 AM EDT - 07/26/2013 11:59 PM EDT Hospital [place] [address] Mammographic microcalcification Social History Tobacco Use Types [...] AM EST Hospital Encounter [place] [address] Arrived documented as of this encounter Procedures [...] microcalcification documented in this encounter Care Teams Campus Chaplain Relationship Specialty Start Date End Date Lolly Oliveira MD [address] [place] [address] PCP - General 07/17/13 documented as of this encounter
--- OUTSIDE RECORDS SUMMARY | 2024-03-03 11:13 | XMS_ITS | Encounter Summary ---
Author Organization [facility] [place] [address] Care Team Providers Care Electromechanical Assembler Name Role Phone Lolly Oliveira MD Primary Care Provider [phone] Reason for Visit * Reason Onset Date Comments Post Procedure Call 07/30/2022 Encounter Details Date Type Department Care Team (Late st Contact Info) Description 07/30/2022 Notes Only Cardiology at [address] [phone] Rosenda Sutton, RN Post Procedure Call Social History Tobacco Use Types Packs/Day Years Used Date Smoking Tobacco: Never Alcohol Use Standard Drinks/Week Comments Not Currently 0 (1 standard drink = 0.6 oz pur e alcohol) [facility] Inpatient Questions Answer Date Recorded Does [...] 07/30/2022 9:59 AM EDTSummary: Post Procedure Call: ELECTRICAL TESTER implant EP RN Post-Procedure Note: Date [...] Note: Follow-up Recommendations for Providers: - s/p ELECTRICAL TESTER-D implant - post implant QRS 130 [...] [facility] Hospital Encounter Non-Invasive [place] [address] Arrived documented as of this encounter Visit Diagnoses Not on filedocumented in this encounter Care Teams Electromechanical Assembler Relationship Specialty Start Date End Date Lolly Oliveira MD [address] [place] [address] PCP - General 07/17/13 documented as of this encounter
--- OUTSIDE RECORDS SUMMARY | 2024-03-03 11:13 | XMS_ITS | Encounter Summary ---
Author Organization [facility] [place] [address] Care Team Providers Care Information Security Engineer Name Role Phone Lolly Oliveira MD Primary Care Provider [phone] Encounter Details Date Type Department Care Team (Latest Contact Info) Description 07/17/2013 8:40 AM EDT - 07/17/2013 11:59 PM EDT Hospital Encounter XRay at [address] [place] [phone] CLINIC, DR [facility] Discharge Disposition: Home Social [...] AM EST Hospital Encounter Non-Invasive [place] [address] Arrived documented as of this encounter Visit Diagnoses Not on filedocumented in this encounter Care Teams Information Security Engineer Relationship Specialty Start Date End Date Lolly Oliveira MD [address] [place] [address] PCP - General 07/17/13 documented as of this encounter
--- OUTSIDE RECORDS SUMMARY | 2024-03-03 11:13 | XMS_ITS | Encounter Summary ---
Author Organization [facility] [address] Care Team Providers Care Ios Software Engineer Name Role Phone Lolly Oliveira MD Primary Care Provider Reason for Visit * Reason Onset Date Comments Pre Procedure Call 07/01/2022 Encounter Details Date Type Department Care Team (Late st Contact Info) Description 07/01/2022 Telephone Cardiology at [address] [phone] Rosenda Sutton RN Pre Procedure Call Social History Tobacco Use Types Packs/Day Years Used Date Smoking Tobacco: Never Sex and Gender Information Value Date Recorded Sex Assigned at Not on file Gender Identity Not on file Sexual Orientation Not on file documented as of this encounter Miscellaneous Notes * Telephone Encounter - Rosenda Sutton RN - 07/01/2022 9:30 AM EDTSummary: Pre Procedure Call: FINANCIAL SPECIALIST implant EP RETAIL SPECIAL EVENT ASSOCIATE COORDINATION CHECKLIST Patient Name: Luna Mott Patient Performing Charge Poster: Lalit Mcmahon Referring Provider: Lolly Oliveira Date of Procedure: 07/23/22 Arrival Time/ Case Time: 12:00 pm / 1:00 pm Check In Location: [facility] 4W Date Patient was Called: 07/01/22 Procedure: FINANCIAL SPECIALIST Company: [employer] Type: FINANCIAL SPECIALIST-D Laterality: LEFT Orders: Yes Lab Orders: Yes [...] overnight , understands that they will need tour driver on day of discharge Notified pt that Goff catheter may be placed on day of procedure depending on type & duration of case. documented in this encounter Plan of Treatment Upcoming Encounters Date Type Department Care Team (Late st Contact Info) Description 04/15/2024 10:00 AM [facility] Hospital Encounter [place] [address] Arrived documented as of this encounter Visit Diagnoses Not on filedocumented in this encounter Care Teams Ios Software Engineer Relationship Specialty Start Date End Date Lolly Oliveira MD [address] [place] [address] PCP - General 07/17/13 documented as of this encounter
--- OUTSIDE RECORDS SUMMARY | 2024-03-03 11:13 | XMS_ITS | Encounter Summary ---
Author Organization [facility] [place] [address] Care Team Providers Care Music Orchestrator Name Role Phone Lolly Oliveira MD Primary Care Provider [phone] Reason for Visit * Reason Comments Psoriasis Encounter Details Date Type Department Care Team (Late st Contact Info) Description 04/09/2022 1:45 PM EST Office Visit Dermatology at [address] [address] Clay Ramírez MD [address] [facility] [place] [address] Psoriasis, guttate Social History Tobacco Use Types [...] AM EST Hospital Encounter Non-Invasive [place] [address] Arrived documented as of this encounter Visit Diagnoses Diagnosis Psoriasis, guttate Other psoriasis documented in this encounter Care Teams Music Orchestrator Relationship Specialty Start Date End Date Lolly Oliveira MD [address] [place] [address] PCP - General 07/17/13 documented as of this encounter
--- OUTSIDE RECORDS SUMMARY | 2024-03-03 11:13 | XMS_ITS | Encounter Summary ---
Author Organization [facility] [place] [address] Care Team Providers Care Scientific Writer Name Role Phone Lolly Oliveira MD Primary Care Provider [phone] Encounter Details Date Type Department Care Team (Late st Contact Info) Description 06/29/2011 [place] [address] Eleno Christian MD Social History Tobacco Use [...] [facility] Hospital Encounter Non[place] [address] Arrived documented as of this encounter Procedures [...] on filedocumented in this encounter Care Teams Scientific Writer Relationship Specialty Start Date End Date Lolly Oliveira MD [address] [place] [address] PCP - General 07/17/13 documented as of this encounter
--- OUTSIDE RECORDS SUMMARY | 2024-03-03 11:13 | XMS_ITS | Encounter Summary ---
Author Organization [facility] [place] [address] Care Team Providers Care Vacuum Repairer Name Role Phone Lolly Oliveira MD Primary Care Provider [phone] Encounter Details Date Type Department Care Team (Latest Contact Info) Description 07/26/2013 9:44 AM EDT - 07/26/2013 11:59 PM EDT Hospital Encounter [place] [phone] CLINIC, Lolly So MD [address] [place], [place] [phone] Mammographic microcalcification Discharge Disposition: Home Social History [...] AM EST Hospital Encounter Non-[place] [address] Arrived documented as of this encounter Procedures [...] are present on specimen digital X-ray. A Ofelia Feliz-Stereo 13 Cylinder marker clip was placed. Cranio-caudal [...] mLs documented in this encounter Care Teams Vacuum Repairer Relationship Specialty Start Date End Date Lolly Oliveira MD [address] [place] [address] PCP - General 07/17/13 documented as of this encounter
--- OUTSIDE RECORDS SUMMARY | 2024-03-03 11:13 | XMS_ITS | Encounter Summary ---
Author Organization [facility] Address [facility] [place] [address] Care Team Providers Care Pollution Control Engineer Name Role Phone Lolly Oliveira MD Primary Care Provider [phone] Reason for Visit * Auth/Cert (Routine) Specialty Diagnoses / Procedures Referred By Contac t Referred To Contact Diagnoses Left bundle-branch block, unspecified Other cardiomyopathies Left bundle branch block [I44.7]Nonischemic cardiomyopathy [I42.8] Procedures PRG CATH PLMT LEFT HEART CATH & ARTS W/INJ & ANGIO IMG S&I ELECTROPHYSIOLOGY PROCEDURE Lalit Mcmahon MD [facility] [place] [address] [facility] Referral ID Status Reason Start Date Expiration Date Visits Re quested Visits Authorized [id number] 1 1 Encounter Details Date Type Department Care Team (Late st Contact Info) Description 07/23/2022 1:08 PM EDT Anesthesia Event [place] [address] Monae Gonzalez MD [facility] [place] [address] Maria Elena Snyder CRNA [facility] [place] [address] Anesthesia Record Procedure Summary Procedure Name Responsible [...] 1307; median cubital vein (antecubital fossa), right; azch-qqo-ocnssj catheter system; Anatomical Landmarks; 20 gauge; 07/24/22; [...] 1343; metacarpal vein (top of hand), left; embw-kal-fnqsqn catheter system; Anatomical Landmarks; US Not Used; [...] Date: 07/23/22 Room / Location: [facility] A-LAB ROOM 3 / [facility] EP LABS Anesthesia Start: 1308 Anesthesia Stop: 1633 Procedure: ELECTROPHYSIOLOGY PROCEDURE (Left) Diagnosis: Left bundle branch block Nonischemic cardiomyopathy (Left bundle branch block [I44.7]Nonischemic cardiomyopathy [I42.8]) Providers: Lalit Mcmahon MD Responsible Provider: Monae Gonzalez MD Anesthesia Type: general ASA Status: 4 All Anesthesia Providers: Anesthesiologist: Monae Gonzalez MD; Dominique Sen MD ICING MACHINE OPERATOR: Maria Elena Snyder CRNA Vitals Value Taken Time BP 131/46 07/23/22 1700 Temp 36.7 ??C (98.1 ??F) 07/23/22 1627 Pulse 67 07/23/22 1703 Resp 14 07/23/22 1703 SpO2 98 % 07/23/22 1703 Pain Level Vitals shown include unvalidated device data. 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 No prior anesthetic records. Pt states that [...] daughter/son and patient who. Plan discussed with ICING MACHINE OPERATOR. Anesthesia Screening documented in this encounter Plan of Treatment Upcoming Encounters Date Type Department Care Team (Late st Contact Info) Description 04/15/2024 10:00 AM [facility] Hospital Encounter Non-[place] [address] Arrived documented as of this [...] Starting on Myra 07/23/22 at 1400, Until Mrya 07/23/22 at 1633, Anesthesia Intra-op, Routine Given [...] mg documented in this encounter Care Teams Pollution Control Engineer Relationship Specialty Start Date End Date Lolly Oliveira MD [address] [place] [address] PCP - General 07/17/13 documented as of this encounter
--- OUTSIDE RECORDS SUMMARY | 2024-03-03 11:13 | XMS_ITS | Encounter Summary ---
Author Organization [facility] [place] [address] Care Team Providers Care Air Compressor Mechanic Name Role Phone Lolly Oliveira MD Primary Care Provider [phone] Encounter Details Date Type Department Care Team (Late st Contact Info) Description 04/01/2021 3:30 PM EST Office Visit Dermatology at [address] [phone] Clay Ramírez MD [address] [address] [place] [address] Psoriasis, guttate Social History Tobacco Use Types [...] Hospital Encounter Non-Invasive [place] [address] Arrived documented as of this encounter Visit Diagnoses Diagnosis Psoriasis, guttate Other psoriasis documented in this encounter Care Teams Air Compressor Mechanic Relationship Specialty Start Date End Date Lolly Oliveira MD [address] [place] [address] PCP - General 07/17/13 documented as of this encounter
--- OUTSIDE RECORDS SUMMARY | 2024-03-03 11:13 | XMS_ITS | Encounter Summary ---
Author Organization [facility] [place] [address] Care Team Providers Care Library Clerk Name Role Phone Lolly Oliveira MD Primary Care Provider [phone] Reason for Visit * Reason Comments Follow-up Encounter Details Date Type Department Care Team (Late st Contact Info) Description 06/06/2021 8:45 AM EDT Office Visit Dermatology at [address] [address] Clay Ramírez MD [address] [facility] [place] [address] Psoriasis, guttate Social History Tobacco Use Types [...] EST Hospital Encounter Non-Invasive [place] [address] Arrived documented as of this encounter Visit Diagnoses Diagnosis Psoriasis, guttate Other psoriasis documented in this encounter Care Teams Library Clerk Relationship Specialty Start Date End Date Lolly Oliveira MD [address] [place] [address] PCP - General 07/17/13 documented as of this encounter
--- OUTSIDE RECORDS SUMMARY | 2024-03-03 11:13 | XMS_ITS | Encounter Summary ---
Author Organization [facility] [place] [address] Care Team Providers Care Director Cardiology Name Role Phone Lolly Oliveira MD Primary Care Provider [phone] Encounter Details Date Type Department Care Team (Latest Contact Info) Description 07/20/2013 9:26 AM EDT - 07/20/2013 11:59 PM EDT Hospital En[place] [address] CLINIC, Lolly So MD [address] [place], [place] [id number] Mammographic microcalcification Discharge Disposition: Home Social History [...] AM EST Hospital Encounter Non-Invasive [place] [address] Arrived documented as of this encounter Procedures [...] not layer and, therefore, are not sales training representative of milk of calcium. Again, these [...] not layer and, therefore, are not sales training representative of milk of calcium. Again, these have an amorphous andpunctate appearance and remain indeterminate. Stereotactic guided biopsy isrecommended. Alia Fraire MD IMG MAMMO ORDERABLES documented in this encounter Visit Diagnoses Diagnosis Mammographic microcalcification documented in this encounter Care Teams Director Cardiology Relationship Specialty Start Date End Date Lolly Oliveira MD [address] [place] [address] PCP - General 07/17/13 documented as of this encounter
--- OUTSIDE RECORDS SUMMARY | 2024-03-03 11:13 | XMS_ITS | Encounter Summary ---
Author Organization [facility] [place] [address] Care Team Providers Care Vp Strategic Planning Name Role Phone Lolly Oliveira MD [...] MD [facility] [place] [address] [facility] [place] [address] Referral ID Status Reason Start Date Expiration Date V isits Requested Visits Authorized [id number] Closed Specialty Service Requested 05/06/2022 11/07/2023 2 1 Encounter Details Date Type Department Care Team (Latest Contact Info) Description 07/14/2022 9:09 AM EDT - 07/14/2022 11:59 PM EDT Hospital [place] [address] Lalit Mcmahon MD [facility] [place] [address] Discharge Disposition: Home Social History Tobacco Use [...] spacer fluticasone propionate (Flonase) 50 mcg/actuation [place], Suspension 1 spray by Each Nare route [...] AM EST Hospital Encounter [place] [address] Arrived documented as of this [...] mLs documented in this encounter Care Teams Vp Strategic Planning Relationship Specialty Start Date End Date Lolly Oliveira MD [address] [place] [address] PCP - General 07/17/13 documented as of this encounter
--- OUTSIDE RECORDS SUMMARY | 2024-03-03 11:13 | XMS_ITS | Encounter Summary ---
Author Organization [facility] [place] [address] Care Team Providers Care Earth Observations Chief Scientist Name Role Phone Lolly Oliveira MD Primary Care Provider [phone] Encounter Details Date Type Department Care Team (Late st Contact Info) Description 11/16/2022 Telephone Cardiology at [address] [phone] Luna Rousseau, RN Social History Tobacco Use Types Packs/Day Years Used Date Smoking Tobacco: Never Alcohol Use Standard Drinks/Week Comments Not Currently 0 (1 standard drink = 0.6 oz pur e alcohol) [facility] Inpatient Questions Answer Date Recorded [...] BP today was 118/57 [address] [facility] Pt is going twice a week to [...] [facility] Hospital Encounter Non-Invasive [place] [address] Arrived documented as of this encounter Visit Diagnoses Not on filedocumented in this encounter Care Teams Earth Observations Chief Scientist Relationship Specialty Start Date End Date Lolly Oliveira MD [address] [place] [address] PCP - General 07/17/13 documented as of this encounter
--- OUTSIDE RECORDS SUMMARY | 2024-03-03 11:13 | XMS_ITS | Encounter Summary ---
[place] [address] Care Team Providers Care Assistant Speech Language Pathologist Name Role Phone Lolly Oliveira MD Primary Care Provider [phone] Encounter Details Date Type Department Care Team [...] AM EST Hospital Encounter Non-[place] [address] Arrived documented as of this encounter Visit Diagnoses Not on filedocumented in this encounter Care Teams Assistant Speech Language Pathologist Relationship Specialty Start Date End Date Lolly Oliveira MD [address] [place] [address] PCP - General 07/17/13 documented as of this encounter
--- OUTSIDE RECORDS SUMMARY | 2024-03-03 11:13 | XMS_ITS | Encounter Summary ---
Author Organization [facility] [place] [address] Care Team Providers Care Hoisting Laborer Name Role Phone Lolly Oliveira MD Primary Care Provider [phone] Reason for Visit * Reason Comments Follow-up Encounter Details Date Type Department Care Team (Late st Contact Info) Description 05/21/2022 8:00 AM EDT Office Visit Dermatology at [address] [phone] Clay Ramírez MD [address] [facility] [place] [address] Psoriasis, guttate Social History Tobacco Use Types [...] [facility] Encounter Non[place] [address] Arrived documented as of this encounter Visit Diagnoses Diagnosis Psoriasis, guttate Other psoriasis documented in this encounter Care Teams Hoisting Laborer Relationship Specialty Start Date End Date Lolly Oliveira MD [address] [place] [address] PCP - General 07/17/13 documented as of this encounter
--- OUTSIDE RECORDS SUMMARY | 2024-03-03 11:13 | XMS_ITS | Encounter Summary ---
Author Organization [facility] [place] [address] Care Team Providers Care Gas Compressor Turbine Operator Name Role Phone Lolly Oliveira MD Primary Care Provider [phone] Reason for Referral * Diagnostic Test (Routine) - Closed Specialty Diagnoses / Procedures Referred By Contac t Referred To Contact Radiology Diagnoses Left bundle branch block Nonischemic cardiomyopathy Procedures MRI Cardiac Morphology Function With Flow Velocity Quantification [facility] Contrast MRI Cardiac Morphology Function wwo Contrast Lalit Mcmahon MD [facility] [place] [address] [place] [address] Referral ID Status Reason Start Date Expiration Date V isits Requested Visits Authorized [id number] Closed Specialty Service Requested 05/06/2022 11/07/2023 2 1 Reason for Visit * Diagnostic Test (Routine) - Closed Specialty Diagnoses / Procedures Referred By Contac t Referred To Contact Radiology Diagnoses Left bundle branch block Nonischemic cardiomyopathy Procedures MRI Cardiac Morphology Function With Flow Velocity Quantification o Contrast MRI Cardiac Morphology Function wwo Contrast Lalit Mcmahon MD [facility] [place] [address] [place] [address] Referral ID Status Reason Start Date Expiration Date V isits Requested Visits Authorized [id number] Closed Specialty Service Requested 05/06/2022 11/07/2023 2 1 Encounter Details Date Type Department Care Team (Latest Contact Info) Description 07/14/2022 9:08 AM EDT Hospital Encounter MRI at [facility] [place] [address] Lalit Mcmahon MD [facility] [place] [address] Left bundle branch block; Nonischemic cardiomyopathy Discharge [...] with spacer fluticasone propionate (Flonase) 50 mcg/actuation [place], Suspension 1 spray by Each Nare route [...] 1950 [address] [facility] [address] Female [phone] (home) No relevant phone numbers on file. Lolly Oliveira MD None Allergies Allergen Reactions ??? Sulfa (Sulfonamide Antibiotics) Date/Time of call: July 07, 2022/11:03 AM/ PREVIOUS MRI SCAN? HEIGHT: WEIGHT: SCHEDULED SCAN: MRI CARDIAC MORPHOLOGY FUNCTION WITH FLOW VELOCITY QUANTIFICATION WWO CONTRAST [[id number]] Order Questions Answers Where will study be performed? [facility] Radiology [120] SUBJECTIVE: Very Claustrophobic CAN [...] ( KV ) You must have a wood pile driver operator present when you check in. This patient has been informed that they require a wood pile driver operator to drive them home after this procedure. In the absence of a wood pile driver operator, IR will not be able to sedate for your scan. Pt verbalized understanding of these instructions during the pre-procedure education via phone. Yes Name of wood pile driver operator: Daughter Phone number: PRIOR SCAN DATE/S SEDATION TYPE SUCCESSFUL 07/14/22 MRI Cardiac Morphology Function with Flow Velocity Quantification wwo Contrast Ativan 1mg x 1 dose Pass Revised 08/03/17 documented in this encounter Plan of Treatment Upcoming Encounters Date Type Department Care Team (Late st Contact Info) Description 04/15/2024 10:00 AM [facility] Hospital Encounter Non-[place] [address] Arrived documented as of this encounter Procedures [...] mg documented in this encounter Care Teams Gas Compressor Turbine Operator Relationship Specialty Start Date End Date Lolly Oliveira MD [address] [place] [address] PCP - General 07/17/13 documented as of this encounter
--- OUTSIDE RECORDS SUMMARY | 2024-03-03 11:13 | XMS_ITS | Encounter Summary ---
[place] [address] Care Team Providers Care Bank Compliance Officer Name Role Phone Lolly Oliveira MD Primary Care Provider [phone] Encounter Details Date Type Department Care Team [...] AM EST Hospital Encounter Non-Invasive [place] [address] Arrived documented as of this encounter Visit Diagnoses Not on filedocumented in this encounter Care Teams Bank Compliance Officer Relationship Specialty Start Date End Date Lolly Oliveira MD [address] [place] [address] PCP - General 07/17/13 documented as of this encounter
--- OUTSIDE RECORDS SUMMARY | 2024-03-03 11:13 | XMS_ITS | Encounter Summary ---
Author Organization [facility] [place] [address] Care Team Providers Care News Videographer Name Role Phone Lolly Oliveira MD Primary Care Provider [phone] Reason for Visit * Auth/Cert (Routine) Specialty Diagnoses / Procedures Referred By Contac t Referred To Contact Diagnoses Left bundle-branch block, unspecified Other cardiomyopathies Left bundle branch block [I44.7]Nonischemic cardiomyopathy [I42.8] Procedures PRG CATH PLMT LEFT HEART CATH & ARTS W/INJ & ANGIO IMG S&I ELECTROPHYSIOLOGY PROCEDURE Lalit Mcmahon MD [facility] [place] [address] [facility] Referral ID Status Reason Start Date Expiration Date Visits Re quested Visits Authorized [id number] 1 1 Encounter Details Date Type Department Care Team (Late st Contact Info) Description 07/23/2022 1:00 PM EDT - 07/23/2022 5:30 PM EDT Surgery [place] [address] Lalit Mcmahon MD [facility] [place] [address] ELECTROPHYSIOLOGY PROCEDURE Social History Tobacco Use Types [...] Luna Mott Patient Age: 71 y.o. Language: Syriac Race: White Ethnicity: Not nor Admit date: 07/23/2022 Discharge date and time: 07/24/22 Attending Physician: Lalit Mcmahon MD Discharge Physician: Lalit Mcmahon MD Follow-up Recommendations for Providers: - s/p MONTESSORI PARAPROFESSIONAL-D implant - post implant QRS 130 ms [...] Solar lentigo Operations/Major Procedures: 07/23/22: [facility] MONTESSORI PARAPROFESSIONAL-D implant History of Presentation: 71 y.o. female with a history of HFrEF, LBBB, QRS >150, NYHA II who is POD#1 of MONTESSORI PARAPROFESSIONAL-D implant ([employer]). Hospital Course: Elective admission for MONTESSORI PARAPROFESSIONAL-D implant Admitted post-implant for pain management, telemetry [...] (heart failure with reduced ejection fraction) [I50.20] MONTESSORI PARAPROFESSIONAL-D implant Admission Condition: good Indication for Admission: [...] g Refills: 3 fluticasone propionate 50 mcg/actuation [place], Suspension Commonly known as: Flonase 1 spray [...] F. The office scheduling phone number is [phone]. ARM MOVEMENT RESTRICTIONS POST-IMPLANT - Do not [...] please call the Cardiac ElectrophysiologyTriage Nurse at [phone], option 3. General Instructions None Discharge References/Attachments [...] F. The office scheduling phone number is [phone]. ARM MOVEMENT RESTRICTIONS POST-IMPLANT - Do not [...] please call the Cardiac ElectrophysiologyTriage Nurse at [phone], option 3. documented in this encounter Medications [...] with spacer fluticasone propionate (Flonase) 50 mcg/actuation [place], Suspension 1 spray by Each Nare route [...] Cardiac Electrophysiology Post-Implant Device Interrogation Luna Mott [id number] 07/24/2022 History: Luna Mott is a 71 y.o. female with a history of HFrEF, LBBB, QRS >150, NYHA II who is POD#1 of MONTESSORI PARAPROFESSIONAL-D implant ([employer]). Overall feels well this morning. Ready [...] WOB Neuro- A&Ox3 Device Interrogation: Data ?? Safemaker Model # Serial # Generator [employer] [id number] Atrial Lead [employer] 7841 [id number] RV Lead [employer] 0672 [id number] LV Lead [employer] [id number] ?? Diagnostics Pacing Mode: DDD 60-130 Underlying Rhythm: [place] Atrial Episodes: None Ventricular Episodes: None FINAL PROGRAMMING: Pacing: Mode Lower rate (ppm) Upper rate (ppm) ?? DDD 60 130 VF: Rate (bpm) #Antitachycardia pacing First shock energy (J) ?? 200 Quick convert 41 VT: 170 Monitor only Monitor only ? Battery and Leads Impedances (ohms) Sensing (mV) Thresholds HV RA RV LV RA RV LV RA RV LV 73 [phone] (LVa) 7.7 13.1 >25 0.4V @ 0.4 ms 0.4V @ 0.4 ms 0.5 V @ 1.0 ms POD#1 CXR: All leads in nominal positioning Impression: 71 y.o. female who is s/p MONTESSORI PARAPROFESSIONAL-D implant for LBBB, NYHA II, HFrEF. - [...] [facility]) Fadi Nunez MD 07/24/2022 Pager: [phone] I met with the patient today and [...] agreement. ? Dr. Lalit Mcmahon, electrophysiology attending ([id number]) * Zaria Wright RN - 07/23/2022 8:28 [...] HF, QRS > 150 ms presents for MONTESSORI PARAPROFESSIONAL-D placement. ROS: Denies recent fevers or chills [...] 0.9) flush 5 mL 5 mL Intravenous [id number] ramos MD ??? sodium chloride 0.9 % [...] HF, QRS > 150 ms presents for MONTESSORI PARAPROFESSIONAL-D placement. Backup would be LBBAP lead. Antibiotics: cefazolin Rationales for, intended benefits and potential risk of planned procedures reviewed. The patient indicated understanding and agreement with the plan. Informed consent signed. Procedure checklist completed. Fadi Nunez MD Cardiac Electrophysiology Fellow [facility] Pager [phone] 07/23/2022 I met with the patient today [...] agreement. ? Dr. Lalit Mcmahon, electrophysiology attending ([id number]) documented in this encounter Miscellaneous Notes * Brief Op Note - Lalit Mcmahon MD - 07/23/2022 4:04 PM EDT Brief Operative Note Patient Name: Luna Mott : [id number] MR#: [id number] Case Date: 07/23/2022 Surgeon: Surgeon(s) and Role: [...] Encounter Non-In[place] [address] Arrived Scheduled Orders Name Type Priority Associated Diagnoses Orde r Schedule EKG 12 Lead ECG Routine Cardiac resynchronization therapy defibrillator (MONTESSORI PARAPROFESSIONAL-D) in place One Time for 1 Occurrences [...] (Bezet) 522 ms MUSE SYSTEM Calculated R [place] 78 degrees MUSE SYSTEM Calculated T [place] -71 degrees MUSE SYSTEM INTERPRETATION AV dual-paced [...] questions please contact the health health care manager that requested your imaging first. ? Electronically signed by: Kwame Vargas MD, [facility] ([phone]), at 07/24/2022 6:43 AM Narrative 07/24/2022 6:43 [...] have questions please contactthe health health care manager that requested your imaging first. Electronically signed by: Kwame Vargas MD, [facility]([phone]), at 07/24/2022 6:43 AM Lalit Mcmahon MD IMG DX ORDERABLES * ELECTROPHYSIOLOGY PROCEDURE (07/23/2022 1:11 PM EDT) Anatomical Region Laterality Modality Other Narrative 07/23/2022 4:24 PM EDT Table formatting from the original result was not included. BIVENTRICULAR ICD IMPLANTATION Rack Pusher: Lalit Mcmahon MD Fellow: Fadi Nunez MD [...] the entire procedure. LEAD AND GENERATOR DATA: Safemaker Model # Serial # Generator [employer] [id number] Atrial Lead [employer] [id number] [id number] RV Lead [employer] 0672 [id number] LV Lead [employer] [id number] PACE/SENSE DATA: Sensed wave (mV) Threshold (V) [...] (cGycm2) 300 CONCLUSIONS: Successful implantation of a [employer] biventricular ICD for primary prevention and treatment of symptoms related to congestive heart failure. Follow up in EP clinic in 1-2 months. Procedures performed: new ICD system ( cpt 17811-A3); implant LV lead at time of ICD insertion (cpt 47287) I have read, edited and approve of this report: Lalit Mcmahon MD [facility] Cardiac Electrophysiology 07/23/2022 4:22 PM Procedure Note Lalit Mcmahon MD - 07/23/2022 BIVENTRICULAR ICD IMPLANTATION Rack Pusher: Lalit Mcmahon MD Fellow: Fadi Nunez MD [...] in the entireprocedure. LEAD AND GENERATOR DATA: Safemaker Model # Serial # Generator [employer] [id number] Atrial Lead [employer] 7841 [id number] RV Lead [employer] 0672 [id number] LV Lead [employer] [id number] PACE/SENSE DATA: Sensed wave (mV) Threshold (V) [...] (cGycm2) 300 CONCLUSIONS: Successful implantation of a [employer] biventricular ICD forprimary prevention and treatment of symptoms related to congestive heartfailure. Follow up in EP clinic in 1-2 months. Procedures performed: new ICD system ( cpt 66260-R3); implant LV lead attime of ICD insertion (cpt 33278) I have read, edited and approve of [...] CARE TEST O RDERABLES Performing Organization Address City/[facility]/ZIP Co de Phone Number [facility] [place] [address] * EKG 12 Lead (07/23/2022 12:33 PM EDT) Ventricular rate 72 BPM MUSE SYSTEM Atrial Rate 72 BPM MUSE SYSTEM P-R Interval 158 ms MUSE SYSTEM QRS Duration 176 ms MUSE SYSTEM Q-T Interval 458 ms MUSE SYSTEM QTC Calculated (Bezet) 501 ms MUSE SYSTEM Calculated P [place] 34 degrees MUSE SYSTEM Calculated R [place] 12 degrees MUSE SYSTEM Calculated T [place] -173 degrees MUSE SYSTEM INTERPRETATION Normal sinus rhythm Left bundle branch block Abnormal ECG No previous ECGs available Confirmed by MD Salome, Lalit ([id number]) on 07/23/2022 1:19:03 PM MUSE SYSTEM 07/23/2022 12:3 3 PM EDT 07/23/2022 1:19 PM EDT Lalit Mcmahon MD ECG ORDERABLES Performing Organization Address [facility]/ZIP Co de Phone Number MUSE SYSTEM * Differential, Automated (07/23/2022 11:55 AM EDT) Neutrophil % 62.6 % [facility] Neutrophil Absolute 4.14 1.70 - 6.10 x10(3)/[facility] LABORATORY Lymph % 27.0 % [facility] Lymphocytes Abs 1.8 0.9 - 3.2 x10(3)/[facility] LABORATORY Monocyte % 7.3 % [facility] LAB[facility] Monocyte Abs 0.5 0.3 - 0.9 x10(3)/[facility] LABORATORY Eos % 2.3 % [facility] Eosinophils Abs 0.2 0.0 - 0.4 x10(3)/[facility] LABORATORY Basophil % 0.6 % [facility] ITAL LABORAT[facility] Baso Absolute 0.0 0.0 - 0.1 x10(3)/[facility] LABORATORY Immature Gran % 0.20 % [facility] Comment: Immature granulocytes(IG's)percentage [...] Lab Lalit Mcmahon MD HEMATOLOGY ORDERABLE S [facility] [place] [address] * Hemogram (07/23/2022 11:55 AM EDT) White Blood Cell 6.6 4.0 - 9.5 x10(3)/[facility] LABORATORY Red Blood Cell 4.50 4.00 - 5.21 x10(6)/[facility] Hemoglobin 13.7 11.7 - 15.5 g/dL [facility] Hematocrit 42.5 35.7 - 45.8 % [facility] Mean Cell Volume 94.4 82.6 - 94.4 fL [facility] Mean Cell Hemoglobin 30.4 27.1 - 32.0 pg [facility] Mean Cell Hemoglobin Concentration 32.2 31.7 - 35.0 g/dL [facility] Platelet 193 145 - 357 x10(3)/[facility] LAB[facility]ATORY RDW Standard Deviation 45.5 37.0 - 46.0 fL [facility] RDW coefficient of variation 13.2 11.5 - 14.1 % [facility] Mean Platelet Volume 9.5 7.6 - 12.9 fL [facility] NRBC% auto 0.0 % [facility] ITAL LABORATORY NRBC Absolute 0.000 0.000 - 0.000 x10(3)/[facility] LAB[facility] Blood 07/23/2022 11:5 5 AM EDT 07/23/2022 12:07 PM EDT Narrative Resulting Agency Comment Spec In Lab Lalit Mcmahon MD HEMATOLOGY ORDERABLE S [facility] [place] [address] * (ABNORMAL) BMP w/fasting Glucose (07/23/2022 11:55 AM EDT) Glucose Fasting 110(H) 65 - 99 mg/dL [facility] Comment: ?Fasting* Glucose [...] of Diabetes Mellitus, Position Statement from the [place] [employer]. ??Diabetes Care, Volume 33, Supplement 1, Mar 2009 Blood Urea Nitrogen 23(H) 8 - 18 mg/dL [facility] Creatinine 1.07 0.70 - 1.20 mg/dL [facility] Sodium 141 135 - 145 mmol/L [facility] Potassium 4.8 3.5 - 5.0 mmol/L [facility] Comment: Please note: [...] Anion Gap 9 5 - 15 mmol/L [facility] Calcium 9.7 8.5 - 10.5 mg/dL [facility] Est Glomerular Filtration [...] CHEMISTRY ORDERABLES Performing Organization Address [facility] Co de Phone Number [facility] [place] [address] * Prothrombin Time (07/23/2022 11:55 AM EDT) Prothrombin Time 11.7 9.4 - 12.5 sec [facility] International Normalization Ratio 1.0 [facility] Comment: An INR [...] MD HEMATOLOGY ORDERABLE S Performing Organization Address City/[facility] Co de Phone Number [facility] [place] [address] documented in this encounter Visit Diagnoses Diagnosis HFrEF (heart failure with reduced ejection fraction)- Primary Left bundle branch block Other left bundle branch block Nonischemic cardiomyopathy Other primary cardiomyopathies Cardiac resynchronization therapy defibrillator (MONTESSORI PARAPROFESSIONAL-D) in place Left bundle branch block Other [...] 5 mg, Oral, NIGHTLY, First dose on Ymra 07/23/22 at 2100, Until Discontinued, Routine 2006 (Given - Provider: Zaria Wright, XAVI) Continuous Medication Order 07/22/2022 07/23/2022 07/24/2022 lactated ringers infusion (CANCELED) 1,000 mL, at 100 mL/hr, Intravenous, CONTINUOUS, Starting on Myra 07/23/22 at 1245, Until Myra 07/23/22 at 1646, Day of Surgery (Day of Procedure) 1307 (New Bag - Provider: Mraia Elena Serrano CRNA)1400 (Anesthesia Volume Adjustment - [...] Routine documented in this encounter Care Teams News Videographer Relationship Specialty Start Date End Date Lolly Oliveira MD [address] [place] [address] PCP - General 07/17/13 documented as of this encounter
--- OUTSIDE RECORDS SUMMARY | 2024-03-03 11:13 | XMS_ITS | Encounter Summary ---
Author Organization [facility] [place] [address] Care Team Providers Care Conveyor Tender [employer] Name Role Phone Unavailable Primary Care Provider Unavailabl e Encounter Details Date Type Department Care Team (Late st Contact Info) Description 07/14/2013 Orders [place] [address] Eleno Christian MD Social History Tobacco Use [...] AM EST Hospital Encounter Non[place] [address] Arrived documented as of this encounter Visit Diagnoses Not on filedocumented in this encounter
--- OUTSIDE RECORDS SUMMARY | 2024-03-03 11:13 | XMS_ITS | Encounter Summary ---
Author Organization [facility] [place] [address] Care Team Providers Care Head Mva Reactor Operator Name Role Phone Lolly Oliveira MD Primary Care Provider [phone] Encounter Details Date Type Department Care Team (Late Contact Info) Description 01/14/2022 Telephone Dermatology at [address] [address] Nora Meredith LPN Social History [...] AM EST Hospital Encounter Non-Invasive [place] [address] Arrived documented as of this encounter Visit Diagnoses Not on filedocumented in this encounter Care Teams Head Mva Reactor Operator Relationship Specialty Start Date End Date Lolly Oliveira MD [address] [place] [address] PCP - General 07/17/13 documented as of this encounter
--- OUTSIDE RECORDS SUMMARY | 2024-03-03 11:13 | XMS_ITS | Encounter Summary ---
Author Organization [facility] [place] [address] Care Team Providers Care Operations Asst Name Role Phone Lolly Oliveira MD Primary Care Provider [phone] Encounter Details Date Type Department Care Team (Late st Contact Info) Description 07/26/2013 [place] [address] Eleno Christian MD Social History [...] [facility] Hospital Encounter Non-Invasive [place] [address] Arrived documented as of this encounter Visit Diagnoses Not on filedocumented in this encounter Care Teams Operations Asst Relationship Specialty Start Date End Date Lolly Oliveira MD [address] [place] [address] PCP - General 07/17/13 documented as of this encounter
--- OUTSIDE RECORDS SUMMARY | 2024-03-03 11:13 | XMS_ITS | Encounter Summary ---
Author Organization [facility] Address [facility] [place] [address] Care Team Providers Care Fertilizer Supervisor Name Role Phone Lolly Oliveira MD Primary Care Provider [phone] Reason for Visit * Auth/Cert (Routine) Specialty Diagnoses / Procedures Referred By Contac t Referred To Contact Diagnoses Left bundle-branch block, unspecified Other cardiomyopathies Left bundle branch block [I44.7]Nonischemic cardiomyopathy [I42.8] Procedures PRG CATH PLMT LEFT HEART CATH & ARTS W/INJ & ANGIO IMG S&I ELECTROPHYSIOLOGY PROCEDURE Lalit Mcmahon MD [facility] [place] [address] [facility] Referral ID Status Reason Start Date Expiration Date Visits Re quested Visits Authorized [id number] 1 1 Encounter Details Date Type Department Care Team (Latest Contact Info) Description 07/23/2022 11:39 AM EDT - 07/24/2022 10:23 AM EDT [place] [id number] Lalit Mcmahon MD [facility] [place] [address] Left bundle branch block; Nonischemic cardiomyopathy; Cardiac resynchronization therapy defibrillator (AMMONIA OPERATOR-D) in place Discharge Disposition: Home Social [...] Patient Age: 71 y.o. Language: Citizen Of [place] Race: White Ethnicity: Not nor Admit date: 07/23/2022 Discharge date and time: 07/24/22 Attending Physician: Lalit Mcmahon MD Discharge Physician: Lalit Mcmahon MD Follow-up Recommendations for Providers: - s/p AMMONIA OPERATOR-D implant - post implant QRS 130 [...] ??? Solar lentigo Operations/Major Procedures: 07/23/22: [facility] AMMONIA OPERATOR-D implant History of Presentation: 71 y.o. female with a history of HFrEF, LBBB, QRS >150, NYHA II who is POD#1 of AMMONIA OPERATOR-D implant ([employer]). Hospital Course: Elective admission for AMMONIA OPERATOR-D implant Admitted post-implant for pain management, [...] (heart failure with reduced ejection fraction) [I50.20] AMMONIA OPERATOR-D implant Admission Condition: good Indication for [...] g Refills: 3 fluticasone propionate 50 mcg/actuation [place], Suspension Commonly known as: Flonase 1 spray [...] sure to use a cloth finishing range back tender (such as a towel) [...] F. The office scheduling phone number is [phone]. ARM MOVEMENT RESTRICTIONS POST-IMPLANT - Do not [...] please call the Cardiac ElectrophysiologyTriage Nurse at [phone], option 3. General Instructions None Discharge References/Attachments [...] sure to use a cloth finishing range back tender (such as a towel) [...] F. The office scheduling phone number is [phone]. ARM MOVEMENT RESTRICTIONS POST-IMPLANT - Do not [...] please call the Cardiac ElectrophysiologyTriage Nurse at [phone], option 3. documented in this encounter Medications [...] with spacer fluticasone propionate (Flonase) 50 mcg/actuation [place], Suspension 1 spray by Each Nare route [...] Cardiac Electrophysiology Post-Implant Device Interrogation Luna Mott [id number] 07/24/2022 History: Luna Mott is a 71 y.o. female with a history of HFrEF, LBBB, QRS >150, NYHA II who is POD#1 of AMMONIA OPERATOR-D implant ([employer]). Overall feels well this morning. Ready [...] WOB Neuro- A&Ox3 Device Interrogation: Data ?? Reel Assembler Model # Serial # Generator [employer] [id number] Atrial Lead [employer] [id number] [id number] RV Lead [employer] 0672 [id number] LV Lead [employer] [id number] ?? Diagnostics Pacing Mode: DDD 60-130 Underlying Rhythm: [place] Atrial Episodes: None Ventricular Episodes: None FINAL PROGRAMMING: Pacing: Mode Lower rate (ppm) Upper rate (ppm) ?? DDD 60 130 VF: Rate (bpm) #Antitachycardia pacing First shock energy (J) ?? 200 Quick convert 41 VT: 170 Monitor only Monitor only ? Battery and Leads Impedances (ohms) Sensing (mV) Thresholds HV RA RV LV RA RV LV RA RV LV 73 752 092 5369 (LVa) 7.7 13.1 >25 0.4V @ 0.4 ms 0.4V @ 0.4 ms 0.5 V @ 1.0 ms POD#1 CXR: All leads in nominal positioning Impression: 71 y.o. female who is s/p AMMONIA OPERATOR-D implant for LBBB, NYHA II, HFrEF. [...] [facility] Fadi Nunez MD 07/24/2022 Pager: [phone] I met with the patient today and [...] agreement. ? Dr. Lalit Mcmahon, electrophysiology attending ([id number]) * Zaria Wright RN - 07/23/2022 8:28 [...] HF, QRS > 150 ms presents for AMMONIA OPERATOR-D placement. ROS: Denies recent fevers or [...] 0.9) flush 5 mL 5 mL Intravenous [id number] ramos MD ??? sodium chloride 0.9 % [...] HF, QRS > 150 ms presents for AMMONIA OPERATOR-D placement. Backup would be LBBAP lead. Antibiotics: cefazolin Rationales for, intended benefits and potential risk of planned procedures reviewed. The patient indicated understanding and agreement with the plan. Informed consent signed. Procedure checklist completed. Fadi Nunez MD Cardiac Electrophysiology Fellow [facility] Pager [phone] 07/23/2022 I met with the patient today [...] agreement. ? Dr. Lalit Mcmahon, electrophysiology attending ([id number]) documented in this encounter Miscellaneous Notes * Brief Op Note - Lalit Mcmahon MD - 07/23/2022 4:04 PM EDT Brief Operative Note Patient Name: Luna Mott : [id number] MR#: [id number] Case Date: 07/23/2022 Surgeon: Surgeon(s) and Role: [...] AM EST Hospital Encounter [place] [address] Arrived Scheduled Orders Name Type Priority Associated Diagnoses Orde r Schedule EKG 12 Lead ECG Routine Cardiac resynchronization therapy defibrillator (AMMONIA OPERATOR-D) in place One Time for 1 [...] (Bezet) 522 ms MUSE SYSTEM Calculated R [place] 78 degrees MUSE SYSTEM Calculated T [place] -71 degrees MUSE SYSTEM INTERPRETATION AV dual-paced [...] questions please contact the health resident care director that requested your imaging first. ? Electronically signed by: Kwame Vargas MD, [facility] ([phone]), at 07/24/2022 6:43 AM Narrative 07/24/2022 6:43 [...] have questions please contactthe health resident care director that requested your imaging first. Electronically signed by: Kwame Vargas MD, [facility]([phone]), at 07/24/2022 6:43 AM Lalit Mcmahon MD IMG DX ORDERABLES * ELECTROPHYSIOLOGY PROCEDURE (07/23/2022 1:11 PM EDT) Anatomical Region Laterality Modality Other Narrative 07/23/2022 4:24 PM EDT Table formatting from the original result was not included. BIVENTRICULAR ICD IMPLANTATION Senior Ios Developer: Lalit Mcmahon MD Fellow: Fadi Nunez [...] the entire procedure. LEAD AND GENERATOR DATA: Reel Assembler Model # Serial # Generator [employer] [id number] Atrial Lead [employer] [id number] [id number] RV Lead [employer] 0672 [id number] LV Lead [employer] 4674 [id number] PACE/SENSE DATA: Sensed wave (mV) Threshold (V) [...] (cGycm2) 300 CONCLUSIONS: Successful implantation of a [employer] biventricular ICD for primary prevention and treatment of symptoms related to congestive heart failure. Follow up in EP clinic in 1-2 months. Procedures performed: new ICD system ( cpt 45016-Y8); implant LV lead at time of ICD insertion (cpt 79067) I have read, edited and approve of this report: Lalit Mcmahon MD S Cardiac Electrophysiology 07/23/2022 4:22 PM Procedure Note Lalit Mcmahon MD - 07/23/2022 BIVENTRICULAR ICD IMPLANTATION Senior Ios Developer: Lalit Mcmahon MD Fellow: Fadi Nunez [...] in the entireprocedure. LEAD AND GENERATOR DATA: Reel Assembler Model # Serial # Generator [employer] [id number] Atrial Lead [employer] 7841 [id number] RV Lead [employer] 0672 [id number] LV Lead [employer] [id number] [id number] PACE/SENSE DATA: Sensed wave (mV) Threshold (V) [...] (cGycm2) 300 CONCLUSIONS: Successful implantation of a [employer] biventricular ICD forprimary prevention and treatment of symptoms related to congestive heartfailure. Follow up in EP clinic in 1-2 months. Procedures performed: new ICD system ( cpt 90760-R9); implant LV lead attime of ICD insertion (cpt 07118) I have read, edited and approve of this report: Lalit Mcmahon MD [facility] Cardiac Electrophysiology 07/23/2022 4:22 PM Lalit Mcmahon MD EP PROCEDURE ORDERAB LES * POCT Glucose (07/23/2022 12:54 PM EDT) Glucose, POC 83 65 - 199 mg/dL [facility] Comment: Supplemental ranges: <140 mg/dL before meals <180 mg/dL all other times of the day Blood 07/23/2022 12:5 4 PM EDT 07/23/2022 12:54 PM EDT Lalit Mcmahon MD POINT OF CARE TEST O RDERABLES Performing Organization Address [facility] Co de Phone Number [facility] [place] [address] * EKG 12 Lead (07/23/2022 12:33 PM EDT) Ventricular rate 72 BPM MUSE SYSTEM Atrial Rate 72 BPM MUSE SYSTEM P-R Interval 158 ms MUSE SYSTEM QRS Duration 176 ms MUSE SYSTEM Q-T Interval 458 ms MUSE SYSTEM QTC Calculated (Bezet) 501 ms MUSE SYSTEM Calculated P [place] 34 degrees MUSE SYSTEM Calculated R [place] 12 degrees MUSE SYSTEM Calculated T [place] -173 degrees MUSE SYSTEM INTERPRETATION Normal sinus rhythm Left bundle branch block Abnormal ECG No previous ECGs available Confirmed by MD Salome, Lalit ([id number]) on 07/23/2022 1:19:03 PM MUSE SYSTEM 07/23/2022 12:3 3 PM EDT 07/23/2022 1:19 PM EDT Lalit Mcmahon MD ECG ORDERABLES Performing Organization Address [facility] de Phone Number MUSE SYSTEM * Differential, Automated (07/23/2022 11:55 AM EDT) Neutrophil % 62.6 % [facility] Neutrophil Absolute 4.14 1.70 - 6.10 x10(3)/[facility] Lymph % 27.0 % [facility] Lymphocytes Abs 1.8 0.9 - 3.2 x10(3)/[facility] Monocyte % 7.3 % [facility] Monocyte Abs 0.5 0.3 - 0.9 x10(3)/[facility] Eos % 2.3 % [facility] Eosinophils Abs 0.2 0.0 - 0.4 x10(3)/[facility] Basophil % 0.6 % [facility] Baso Absolute 0.0 0.0 - 0.1 x10(3)/[facility] Immature Gran % 0.20 % [facility] Comment: Immature granulocytes(IG's)percentage and absolute count will include metamyelocytes, myelocytes, and promyelocytes. Blood smears from CBCs yielding IG's will be scanned manually for concordance. If this scan disagrees with the automated IG or if promyelocytes are noted, a manual differential will be performed. Immature Gran Absolute 0.01 0.00 - 0.04 x10(3)/[facility] Blood 07/23/2022 11:5 5 AM EDT 07/23/2022 12:07 PM EDT Narrative Resulting Agency Comment Spec In Lab Lalit Mcmahon MD HEMATOLOGY ORDERABLE S [facility] [place] [address] * Hemogram (07/23/2022 11:55 AM EDT) White Blood Cell 6.6 4.0 - 9.5 x10(3)/[facility] Red Blood Cell 4.50 4.00 - 5.21 x10(6)/[facility] Hemoglobin 13.7 11.7 - 15.5 g/dL [facility] Hematocrit 42.5 35.7 - 45.8 % [facility] Mean Cell Volume 94.4 82.6 - 94.4 fL [facility] Mean Cell Hemoglobin 30.4 27.1 - 32.0 pg [facility] Mean Cell Hemoglobin Concentration 32.2 31.7 - 35.0 g/dL [facility] Platelet 193 145 - 357 x10(3)/[facility] RDW Standard Deviation 45.5 37.0 - 46.0 fL [facility] RDW coefficient of variation 13.2 11.5 - 14.1 % [facility] Mean Platelet Volume 9.5 7.6 - 12.9 fL [facility] NRBC% auto 0.0 % [facility] NRBC Absolute 0.000 0.000 - 0.000 x10(3)/mcL [facility] Blood 07/23/2022 11:5 5 AM EDT 07/23/2022 12:07 PM EDT Narrative Resulting Agency Comment Spec In Lab Lalit Mcmahon MD HEMATOLOGY ORDERABLE S [facility] [address] [place] [address] * (ABNORMAL) BMP w/fasting Glucose (07/23/2022 11:55 AM EDT) Glucose Fasting 110(H) 65 - 99 mg/dL [facility] Comment: ?Fasting* Glucose Interpretive Criteria [...] of Diabetes Mellitus, Position Statement from the [place] [employer]. ??Diabetes Care, Volume 33, Supplement 1, Mar 2009 Blood Urea Nitrogen 23(H) 8 - 18 mg/dL [facility] Creatinine 1.07 0.70 - 1.20 mg/dL [facility] Sodium 141 135 - 145 mmol/L [facility] Potassium 4.8 3.5 - 5.0 mmol/L [facility] Comment: Please note: ??Patients with WBC >100,000 may have falsely elevated Potassium levels. ??For accurate Potassium quantification in these patients send serum separator tube (gold top) for subsequent determinations. ??Contact the Clinical Chemistry Laboratory if there are any questions. Chloride 106 98 - 107 mmol/L [facility] Carbon Dioxide 26 22 - 31 mmol/L [facility] Anion Gap 9 5 - 15 mmol/L [facility] Calcium 9.7 8.5 - 10.5 mg/dL [facility] Est Glomerular Filtration Rate 55(L) >=60 mL/min/1. 73 m?? [facility] Comment: This patient's estimated GFR was [...] Mcmahon MD CHEMISTRY ORDERABLES Performing Organization Address [facility] Co de Phone Number [facility] [place] [address] * Prothrombin Time (07/23/2022 11:55 AM EDT) Prothrombin Time 11.7 9.4 - 12.5 sec [facility] International Normalization Ratio 1.0 [facility] Comment: An INR <2.0 indicates [...] MD HEMATOLOGY ORDERABLE S Performing Organization Address City/[facility] Co de Phone Number [facility] [place] [address] documented in this encounter Visit Diagnoses Diagnosis HFrEF (heart failure with reduced ejection fraction)- Primary Left bundle branch block Other left bundle branch block Nonischemic cardiomyopathy Other primary cardiomyopathies Cardiac resynchronization therapy defibrillator (AMMONIA OPERATOR-D) in place Left bundle branch block [...] Routine documented in this encounter Care Teams Fertilizer Supervisor Relationship Specialty Start Date End Date Lolly Oliveira MD [address] [place] [address] PCP - General 07/17/13 documented as of this encounter
--- OUTSIDE RECORDS SUMMARY | 2024-03-03 11:13 | XMS_ITS | Encounter Summary ---
Author Organization [facility] [place] [address] Care Team Providers Care Head Of Music Name Role Phone Unavailable Primary Care Provider Unavailabl e Encounter Details Date Type Department Care Team (Late st Contact Info) Description 07/14/2013 External Results XRay at [address] [place] [address] Provider, Scanning Social History Tobacco Use Types [...] EST Hospital Encounter Non-Invasive Cardiology Lab [facility] [place] [address] Arrived documented as of this encounter Procedures [...]
--- OUTSIDE RECORDS SUMMARY | 2024-03-03 11:13 | XMS_ITS | Encounter Summary ---
Author Organization [facility] [place] [address] Care Team Providers Care Production Support Analyst Name Role Phone Lolly Oliveira MD Primary Care Provider [phone] Reason for Referral * Consultation (Routine) - Closed Specialty Diagnoses / Procedures Referred By Contact Referred To Contact Electrophysiology / Cardiology Diagnoses Left bundle branch block Cardiomyopathy, unspecified type AT MINIMUM PT NEEDS CONSIDERATION FOR DEFIBRILLATOR, ALSO CANDIDATE FOR RESYNCHRONIZATION THERAPY HER QRS IS >0.16 Lolly Oliveira MD [address] [place] [address] [facility] [address] [place] [phone] Referral ID Status Reason Start Date Expiration Date V isits Requested Visits Authorized [id number] Closed Consult, Test & Treat PCP Updated and/or Approved 04/30/2022 04/30/2023 6 6 Encounter Details Date Type Department Care Team (Latest Contact Info) Description 04/30/2022 Transcribe Orders eDH Incoming Referrals [phone] Lolly Oliveira MD [address] [place], [place] [id number] Left bundle branch block; Cardiomyopathy, unspecified type [...] AM EST Hospital Encounter Non-Invasive [place] [address] Arrived Scheduled Referrals Name Type Priority Associated Diagnoses Orde r Schedule Referral to Cardiology Outpatient Referral Routine Left bundle branch block Cardiomyopathy, Unspecified Type Ordered: 04/30/2022 documented as of this encounter Visit Diagnoses Diagnosis Left bundle branch block Other left bundle branch block Cardiomyopathy, unspecified type documented in this encounter Care Teams Production Support Analyst Relationship Specialty Start Date End Date Lolly Oliveira MD [address] [place] [address] PCP - General 07/17/13 documented as of this encounter
--- OUTSIDE RECORDS SUMMARY | 2024-03-03 11:13 | XMS_ITS | Encounter Summary ---
Author Organization [facility] [place] [address] Care Team Providers Care Salt Machine Operator Name Role Phone Lolly Oliveira MD Primary Care Provider [phone] Reason for Visit * Reason Comments Skin Check Encounter Details Date Type Department Care Team (Late st Contact Info) Description 11/23/2014 10:00 AM EDT Office Visit Dermatology at [address] [address] Clay Ramírez MD [address] [facility] [place] [address] Dermatofibroma; Nevus; Solar lentigo Discharge Disposition: Home [...] st Contact Info) Description 04/15/2024 10:00 AM [facility] Hospital Encounter Non[place] [address] Arrived documented as of this encounter Visit Diagnoses Diagnosis Dermatofibroma Benign neoplasm of skin, site unspecified Nevus Benign neoplasm of skin, site unspecified Solar lentigo Other dyschromia documented in this encounter Care Teams Salt Machine Operator Relationship Specialty Start Date End Date Lolly Oliveira MD [address] [place] [address] PCP - General 07/17/13 documented as of this encounter
--- OUTSIDE RECORDS SUMMARY | 2024-03-03 11:13 | XMS_ITS | Encounter Summary ---
[place] [address] Care Team Providers Care Lab Instructor Name Role Phone Lolly Oliveira MD Primary Care Provider [phone] Encounter Details Date Type Department Care Team [...] Hospital Encounter [place] [address] Arrived documented as of this encounter Visit Diagnoses Not on filedocumented in this encounter Care Teams Lab Instructor Relationship Specialty Start Date End Date Lolly Oliveira MD [address] [place] [address] PCP - General 07/17/13 documented as of this encounter
--- OUTSIDE RECORDS SUMMARY | 2024-03-03 11:13 | XMS_ITS | Encounter Summary ---
[place] [address] Care Team Providers Care Straddle Truck Operator Name Role Phone Lolly Oliveira MD Primary Care Provider [phone] Encounter Details Date Type Department Care Team (Latest Contact Info) Description 07/26/2013 9:45 AM EDT - 07/26/2013 11:59 PM EDT [place] [address] Mammographic microcalcification Social History Tobacco Use Types [...] AM EST Hospital Encounter Non-Invasive [place] [address] Arrived documented as of this encounter Procedures Procedure Name Priority Date/Time Associated Diagnosis Comments SURGICAL PATHOLOGY REPORT Routine 07/26/2013 12:12 PM EDT MAMMO SPECIMEN IMAGING DURING BIOPSY Routine 07/26/2013 11:58 AM EDT Mammographic microcalcification documented in this encounter Results * Surgical Pathology Report (07/26/2013 12:12 PM EDT) Final Diagnosis ? [facility] ? Provider: ?? ELENO CHRISTIAN ?? Pt. Name: ?? JING MOTT ? Acc #: ?[id number] ?Pt. ? Col Date: ?? 07/26/2013 ? [...] [facility] ? Provider: ?? ELENO CHRISTIAN ?? Pt. Name: ?? JING MOTT ? Acc #: ?[id number] ?Pt. ? Col Date: ?? 07/26/2013 ? [...] FCD, adenosis, DCIS 07/28/2013 8:29 AM EDT [facility] BREAST STRUCTURE / Unknown 07/26/2013 12:12 PM EDT 07/26/2013 12:12 PM EDT Eleno Christian MD PATHOLOGY/CYTOLOGY O RDERABLES Performing Organization Address City/State/[facility] Co ks Phone Number [facility] [place] [address] * Mammo Specimen Imaging During Biopsy (07/26/2013 [...] microcalcification documented in this encounter Care Teams Straddle Truck Operator Relationship Specialty Start Date End Date Lolly Oliveira MD [address] [place] [address] PCP - General 07/17/13 documented as of this encounter
--- OUTSIDE RECORDS SUMMARY | 2024-03-03 11:13 | XMS_ITS | Encounter Summary ---
Author Organization [facility] [place] [address] Care Team Providers Care Telephone Instrument Supervisor Name Role Phone Lolly Oliveira MD Primary Care Provider [phone] Encounter Details Date Type Department Care Team (Latest Contact Info) Description 10/23/2022 10:00 AM EDT - 10/23/2022 11:59 PM EDT Hospital Encounter Non-[place] [address] Discharge Disposition: Home Social History Tobacco Use [...] with spacer fluticasone propionate (Flonase) 50 mcg/actuation [place], Suspension 1 spray by Each Nare route [...] [facility] Hospital Encounter Non[place] [address] Arrived documented as of this [...] on filedocumented in this encounter Care Teams Telephone Instrument Supervisor Relationship Specialty Start Date End Date Lolly Oliveira MD [address] [place] [address] PCP - General 07/17/13 documented as of this encounter
--- OUTSIDE RECORDS SUMMARY | 2024-03-03 11:13 | XMS_ITS | Encounter Summary ---
Author Organization [facility] Address [facility] [place] [address] Care Team Providers Care Tub Attendant Name Role Phone Lolly Oliveira MD Primary Care Provider Encounter Details Date Type Department Care Team (Late st Contact Info) Description 11/11/2022 Orders Only Cardiology at [address] [id number] Lalit Mcmahon MD [facility] [place] [address] Nonischemic cardiomyopathy Social History Tobacco Use Types [...] [facility] Hospital Encounter Non-Invasive [place] [address] Arrived documented as of this encounter Visit Diagnoses Diagnosis Nonischemic cardiomyopathy Other primary cardiomyopathies documented in this encounter Care Teams Tub Attendant Relationship Specialty Start Date End Date Berrian, Lolly M, MD [address] [place] [address] PCP - General 07/17/13 documented as of this encounter
--- OUTSIDE RECORDS SUMMARY | 2024-03-03 11:13 | XMS_ITS | Encounter Summary ---
Author Organization [facility] Address [facility] [place] [address] Care Team Providers Care Field [employer] Name Role Phone Lolly Oliveira MD Primary Care Provider [phone] Encounter Details Date Type Department Care Team (Late st Contact Info) Description 07/16/2022 Telephone Cardiology at [address] [id number] Lalit Mcmahon MD [facility] [place] [address] Social History Tobacco Use Types Packs/Day Years [...] her nonischemic cardiomyopathy. She is scheduled for SKIN PILER-D implantation next week and looks forward to the procedure. We will see each other next week. Lalit Mcmahon MD [facility] Cardiac Electrophysiology 07/16/2022 8:52 AM documented in this encounter Plan of Treatment Upcoming Encounters Date Type Department Care Team (Late st Contact Info) Description 04/15/2024 10:00 AM EST Hospital Encounter [place] [address] Arrived documented as of this encounter Visit Diagnoses Not on filedocumented in this encounter Care Teams Field [employer] Farmworker Relationship Specialty Start Date End Date Lolly Oliveira MD [address] [place] [address] PCP - General 07/17/13 documented as of this encounter
--- OUTSIDE RECORDS SUMMARY | 2024-03-03 11:13 | XMS_ITS | Encounter Summary ---
[place] [address] Care Team Providers Care Health Coach Name Role Phone Lolly Oliveira MD Primary Care Provider [phone] Encounter Details Date Type Department Care Team [...] AM EST Hospital Encounter Non-Invasive [place] [address] Arrived documented as of this encounter Visit Diagnoses Not on filedocumented in this encounter Care Teams Health Coach Relationship Specialty Start Date End Date Lolly Oliveira MD [address] [place] [address] PCP - General 07/17/13 documented as of this encounter
[2024-03-03 11:43] VITALS: BP 154/67; PULSE 79
== END 2024-03-07 23:59 | disposition home or self-care (01) ==
LOC: CR 11:05
PROVIDERS: PCP Family Medicine; Visit Provider Internal Medicine Cardiovascular Disease
DX: R69 Illness, unspecified (principal)

== ENCOUNTER 2024-04-07 10:59 | Outpatient (RCR) | payer SELFPAY ==
--- OUTSIDE RECORDS SUMMARY | 2024-03-10 11:23 | XMS_ITS | Data Portability ---
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 [email or web address] Information not available 05/21/2023 Can You Do Your Housework Without Help? Yes [email or web address] Information not available 05/21/2023 Because Of Any Health Problems, Do You Need The Help Of Another Person With Your Personal Care Needs Such As Eating, Bathing, Dressing, Or Getting Around The House? No [email or web address] Information not available 05/21/2023 Can You Handle Your Own Money Without Help? Yes Information not available 05/21/2023 Are You Having Difficulties Driving Your Car? No [email or web address] Information no t available 05/21/2023 Do You Always Fasten Your Seat Belt When You Are In A Car? Yes- Usually [email or web address] Information not available 05/21/2023 How Often During The Past Four Weeks Have You Been Bothered By Any Of The Following Problems? Falling Or Dizzy When Standing Up? Never [email or web address] Information not available 05/21/2023 Sexual Problems? Never Informat ion not available 05/21/2023 Trouble Eating Well? Sometimes [email or web address] Information not available 05/21/2023 Teeth Or Denture Problems? Sometimes [email or web address] Information not available 05/21/2023 Problems Using The Telephone? Never [email or web address] Information not available 05/21/2023 Tiredness Or Fatigue? Sometimes [email or web address] Information not available 05/21/2023 Have You Had 2 Or More Falls Or Sustained An Injury With A Fall In The Last Year? No [email or web address] Information no t available 05/21/2023 Do You Have Difficulty With Walking Or Balance? No [email or web address] Information not available 05/21/2023 Do You Currently Use A Hearing Device? No [email or web address] Information not available 05/21/2023 Do You Currently Have Any Trouble With Your Vision? Yes [email or web address] Information no t available 05/21/2023 Do You Exercise For About 20 Minutes Three Or More Days A Week? Yes- Most Of The Time [email or web address] Information not available 05/21/2023 Are There Any Safety Concerns In Your Home (see Attached [facility] Pamphlet)? No [email or web address] Information not available 05/21/2023 How Often Do You Have Trouble Taking Medicines The Way You Have Been Told To Take Them? I Always Take Them As Prescribed [email or web address] Information not available 05/21/2023 How Confident Are You That You Can Control And Manage Most Of Your Health Problems? Very Confident xmrfhvyo72 Information not available 05/21/2023 Do You Currently Have Any Difficulty With Your Hearing? No [email or web address] Information not available 05/21/2023 Date Of Most Recent SBINS 05/21/2023 [email or web address] Information not available 05/21/2023 What Was The [...] a brain bleed, ended up with a Creola filter. Brother - Agent orange exposure SISTER [...] preservative free, adsorbed 9 completed Not Available [facility] 01/15/2023 04:53:39 Tdap 8 completed Not Available [facility] 01/15/2023 04:53:39 zoster live 3 completed Not Available [facility] 01/15/2023 04:53:40 Pneumococcal conjugate PCV 13 6 completed Not Available [facility] 01/15/2023 04:53:40 Influenza, high-dose, trivalent, PF 8 completed Not Available [facility] 01/15/2023 04:53:41 Td(adult) unspecified formulation 3 completed Not Available [facility] 01/15/2023 04:53:41 Influenza, split virus, trivalent, preservative 6 completed Not Available [facility] 01/15/2023 04:53:41 Influenza, split virus, trivalent, preservative 5 completed Not Available [facility] 01/15/2023 04:53:41 Influenza, split virus, quadrivalent, PF 9 completed Not Available [facility] 01/15/2023 04:53:41 zoster recombinant 9 completed Not Available [facility] 01/15/2023 04:53:42 zoster recombinant 8 completed Not Available [facility] 01/15/2023 04:53:42 Influenza, high-dose, quadrivalent, PF 1 completed Not Available [facility] 01/15/2023 04:53:43 Influenza, high-dose, quadrivalent, PF 0 completed Not Available [facility] 01/15/2023 04:53:43 Influenza, high-dose, quadrivalent, PF 2 completed Not Available [facility] 01/15/2023 04:53:43 COVID-19, mRNA, LNP-S, PF, 100 mcg/0.5mL dose or 50 mcg/0.25mL dose 2 completed Not Available [facility] 01/15/2023 04:53:43 COVID-19 vaccine, vector-nr, rS-Ad26, PF, 0.5 mL 1 completed Not Available [facility] 01/15/2023 04:53:44 SARS-COV-2 (COVID-19) vaccine, UNSPECIFIED 1 completed Not Available [facility] 01/15/2023 04:53:44 SARS-COV-2 (COVID-19) vaccine, UNSPECIFIED 1 completed Not Available [facility] 01/15/2023 04:53:44 pneumococcal polysaccharide PPV23 5 completed Not Available [facility] 01/15/2023 04:53:45 Hep B, unspecified formulation 4 completed Not Available [facility] 01/15/2023 04:53:45 Hep B, unspecified formulation 3 completed Not Available [facility] 01/15/2023 04:53:46 Hep B, unspecified formulation 3 completed Not Available [facility] 01/15/2023 04:53:46 influenza, unspecified formulation 0 completed Not Available [facility] 01/15/2023 04:53:47 influenza, unspecified formulation 3 completed Not Available [facility] 01/15/2023 04:53:47 influenza, unspecified formulation 9 completed Not Available [facility] 01/15/2023 04:53:47 influenza, unspecified formulation 1 completed Not Available [facility] 01/15/2023 04:53:47 influenza, unspecified formulation 7 completed Not Available [facility] 01/15/2023 04:53:48 influenza, unspecified formulation 4 completed Not Available [facility] 01/15/2023 04:53:48 influenza, unspecified formulation 8 completed Not Available [facility] 01/15/2023 04:53:48 influenza, unspecified formulation 2 completed Not Available [facility] 01/15/2023 04:53:48 Influenza, high-dose, quadrivalent, PF 3 completed Not Available [facility] 03/19/2023 05:33:03 COVID-19, mRNA, LNP-S, PF, herminio-sucrose, 30 mcg/0.3 mL 3 completed Not Available [facility] 03/19/2023 05:33:03 COVID-19, mRNA, LNP-S, bivalent, PF, 50 mcg/0.5 mL or 25mcg/0.25 mL dose 4 completed DENYS Bauer, [facility] 12/20/2023 15:23:33 Respiratory syncytial virus (RSV) vaccine, unspecified 4 completed DENYS Bauer, [facility] 12/20/2023 15:24:29 influenza, unspecified formulation 4 completed DENYS Bauer, [facility] 12/20/2023 15:25:14 Past Encounters Encounter ID Performer Location Encounter Start Date Encounter Closed Date Diagnosis/Indication Diagnosis SNOMED-CT Code Diagnosis ICD10 Code [id number] LOLLY CORTEZ MD [address] [address] 05/21/2023 10:03:54 05/21/2023 11:37:49 Onychomycosis 979933752 B35.1 Asthma 987330580 J45.90 9 Cardiomyopathy 01335481 I10 Disorder of hip joint 42 6055132 M12.859 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 Hyperlipidemia 02806205 E78.5 Vulval and /or perineal noninflammatory disorders 166589603 N90.9 Adult heal th examination 887138534 Z00.[id number] [place] [address] 09/01/2023 10:23:16 09/01/2023 13:28:10 Vertigo 416645696 R42 Impacted c erumen of bilateral ears 9062091295 841071 H61.23 [id number] LOLLY CORTEZ MD [facility] [address] [place] [address] 11/26/2023 07:26:08 11/26/2023 08:10:59 Screening mammography 86258627 Z12.31 Adjustment disorder 1722 6007 F43.20 Asthma 425593308 J45.90 9 Essential hypertension 63858782 I10 Guttate psoriasis 579703 00 L40.4 Cardiomyopathy 92714185 I10 Hyperlipidemia 79501324 E78.5 Prediabetes 737881105 R7 3.03 Health Concerns Section Related Observation LastModified by Organization Detai ls LastModified Time None Recorded Concern Status LastModified by Organization Details LastModified Time None Recorded Advance Directives Directive None Recorded Payers Encounter Date Sequence Insurance Name Policy Number Policy Lema Covered Member ID Lema Member ID Guarantor Name 05/21/2023 1 [id number] - [place]PO) [id number] Luna Mott [id number] Luan Mott 09/01/2023 1 [place]) [id number] Luna Mott [id number] Luna Lunaslin 11/26/2023 1 [place] - [place]) [id number] Luna Lunaslin [id number] Luna Mott Notes Date Note Type Note Provider Name and Address Organization Details Recorded Time 05/21/2023 text/html Thais here today for an annual wellness exam MD [address], [place], [address], [facility]. 05/24/2023 18:32:35 09/01/2023 text/html [...] it. JESSICA INGRAM PA-C [address], [place], [address], [facility]. 09/01/2023 13:55:07 11/26/2023 text/html Thais here today for follow-up of cardiomyopathy, obesity MD [address], [place], [address], [facility]. 11/28/2023 09:26:44 OBGyn Episode No OBEpisode recorded.
--- OUTSIDE RECORDS SUMMARY | 2024-03-10 11:24 | XMS_ITS | Encounter Summary ---
Author Organization [facility] Address [address] [place] [address] Care Team Providers Care Scarfing Machine Operator Name Role Phone Lolly Oliveira MD Primary Care Provider [phone] Encounter Details Date Type Department Care Team (Late st Contact Info) Description 04/01/2005 Results Only [facility] conversion [address] [place] [address] Blair Dukes MD [address] [place] [address] [phone] Social History Tobacco Use Types Packs/Day Years [...] ? JING ALVARENGA ? Accession #: ? [id number] ? : ? 1950 (Age: 54) ??F [...] submitted intact as (B). ??(Dr. Lechuga)/[facility] End of Report [facility] 04/01/2005 04/02/2005 15: 24 EST us Blair Dukes MD PATHOLOGY ORDERABLES Final Resul t [facility] [address] [place] [address] documented in this encounter Visit Diagnoses Not on filedocumented in this encounter Care Teams Scarfing Machine Operator Relationship Specialty Start Date End Date Lolly Oliveira MD [address] [place] [address] PCP - General 11/13/08 documented as of this encounter
--- OUTSIDE RECORDS SUMMARY | 2024-03-10 11:24 | XMS_ITS | Encounter Summary ---
Author Organization [facility] Address [address] [place] [address] Care Team Providers Care Blood Bank Coordinator Name Role Phone Unavailable Primary Care Provider Unavailabl e Encounter Details Date Type Department Care Team (Late st Contact Info) Description 11/07/2008 Orders Only [facility] ([facility]) [address] [place] [address] Kenneth Parker MD [address] [place] [id number] Social History Tobacco Use Types Packs/Day Years [...] ? JING ALVARENGA ? Accession #: ? [id number] ? : ? 1950 (Age: 58) ??F [...] ORDERABLES Final Resu lt [facility] [address] [place] [address] documented in this encounter Visit Diagnoses Not on filedocumented in this encounter
--- OUTSIDE RECORDS SUMMARY | 2024-03-10 11:24 | XMS_ITS | Encounter Summary ---
Author Organization [facility] Address [facility] [place] [address] Care Team Providers Care Manager Of Enterprise Name Role Phone Lolly Oliveira MD Primary Care Provider [phone] Reason for Visit * Auth/Cert (Routine) Specialty Diagnoses / Procedures Referred By Contac t Referred To Contact Diagnoses Left bundle-branch block, unspecified Other cardiomyopathies Left bundle branch block [I44.7]Nonischemic cardiomyopathy [I42.8] Procedures PRG CATH PLMT LEFT HEART CATH & ARTS W/INJ & ANGIO IMG S&I ELECTROPHYSIOLOGY PROCEDURE Lalit Mcmahon MD [facility] [place] [address] [facility] Referral ID Status Reason Start Date Expiration Date Visits Re quested Visits Authorized [id number] 1 1 Encounter Details Date Type Department Care Team (Latest Contact Info) Description 07/23/2022 11:39 AM EDT - 07/24/2022 10:23 AM EDT Hospital [place] [id number] Lalit Mcmahon MD [facility] [place] [address] Left bundle branch block; Nonischemic cardiomyopathy; Cardiac resynchronization therapy defibrillator (JEWELRY CUTTER-D) in place Discharge Disposition: Home Social History [...] Attending Physician: Lalit Mcmahon MD Discharge Physician: Lalti Mcmahon MD Follow-up Recommendations for Providers: - s/p JEWELRY CUTTER-D implant - post implant QRS 130 ms [...] Operations/Major Procedures: 07/23/22: [facility] JEWELRY CUTTER-D implant History of Presentation: 71 y.o. female with a history of HFrEF, LBBB, QRS >150, NYHA II who is POD#1 of JEWELRY CUTTER-D implant ([employer]). Hospital Course: Elective admission for JEWELRY CUTTER-D implant Admitted post-implant for pain management, telemetry [...] failure with reduced ejection fraction) [I50.20] JEWELRY CUTTER-D implant Admission Condition: good Indication for Admission: [...] g Refills: 3 fluticasone propionate 50 mcg/actuation [place], Suspension Commonly known as: Flonase 1 spray [...] incision. Make sure to use a cloth pattern maker (such as a towel) in between the [...] F. The office scheduling phone number is [phone]. ARM MOVEMENT RESTRICTIONS POST-IMPLANT - Do not [...] please call the Cardiac ElectrophysiologyTriage Nurse at [phone], option 3. General Instructions None Discharge References/Attachments [...] incision. Make sure to use a cloth pattern maker (such as a towel) in between the [...] F. The office scheduling phone number is [phone]. ARM MOVEMENT RESTRICTIONS POST-IMPLANT - Do not [...] please call the Cardiac ElectrophysiologyTriage Nurse at [phone], option 3. documented in this encounter Medications [...] with spacer fluticasone propionate (Flonase) 50 mcg/actuation [place], Suspension 1 spray by Each Nare route [...] Cardiac Electrophysiology Post-Implant Device Interrogation Luna Mott [id number] 07/24/2022 History: Luna Mott is a 71 y.o. female with a history of HFrEF, LBBB, QRS >150, NYHA II who is POD#1 of JEWELRY CUTTER-D implant ([employer]). Overall feels well this morning. Ready [...] WOB Neuro- A&Ox3 Device Interrogation: Data ?? Tailings Man Model # Serial # Generator [employer] [id number] Atrial Lead [employer] [id number] RV Lead [employer] 0672 [id number] LV Lead [employer] [id number] [id number] ?? Diagnostics Pacing Mode: DDD 60-130 Underlying Rhythm: [place] Atrial Episodes: None Ventricular Episodes: None FINAL PROGRAMMING: Pacing: Mode Lower rate (ppm) Upper rate (ppm) ?? DDD 60 130 VF: Rate (bpm) #Antitachycardia pacing First shock energy (J) ?? 200 Quick convert 41 VT: 170 Monitor only Monitor only ? Battery and Leads Impedances (ohms) Sensing (mV) Thresholds HV RA RV LV RA RV LV RA RV LV 73 [phone] (LVa) 7.7 13.1 >25 0.4V @ 0.4 ms 0.4V @ 0.4 ms 0.5 V @ 1.0 ms POD#1 CXR: All leads in nominal positioning Impression: 71 y.o. female who is s/p JEWELRY CUTTER-D implant for LBBB, NYHA II, HFrEF. - [...] [facility]) Fadi Nunez MD 07/24/2022 Pager: [phone] I met with the patient today and [...] agreement. ? Dr. Lalit Mcmahon, electrophysiology attending ([id number]) * Zaria Wright RN - 07/23/2022 8:28 [...] QRS > 150 ms presents for JEWELRY CUTTER-D placement. ROS: Denies recent fevers or chills [...] 0.9) flush 5 mL 5 mL Intravenous [id number] ramos MD ??? sodium chloride 0.9 % [...] QRS > 150 ms presents for JEWELRY CUTTER-D placement. Backup would be LBBAP lead. Antibiotics: cefazolin Rationales for, intended benefits and potential risk of planned procedures reviewed. The patient indicated understanding and agreement with the plan. Informed consent signed. Procedure checklist completed. Fadi Nunez MD Cardiac Electrophysiology Fellow [facility] Pager [phone] 07/23/2022 I met with the patient today [...] agreement. ? Dr. Lalit Mcmahon, electrophysiology attending ([id number]) documented in this encounter Miscellaneous Notes * Brief Op Note - Lalit Mcmahon MD - 07/23/2022 4:04 PM EDT Brief Operative Note Patient Name: Luna Mott : [id number] MR#: [id number] Case Date: 07/23/2022 Surgeon: Surgeon(s) and Role: [...] AM EST Hospital Encounter Non-Invasive [place] [address] Arrived Scheduled Orders Name Type Priority Associated Diagnoses Orde r Schedule EKG 12 Lead ECG Routine Cardiac resynchronization therapy defibrillator (JEWELRY CUTTER-D) in place One Time for 1 Occurrences [...] (Bezet) 522 ms MUSE SYSTEM Calculated R [place] 78 degrees MUSE SYSTEM Calculated T [place] -71 degrees MUSE SYSTEM INTERPRETATION AV dual-paced [...] questions please contact the health animal care taker that requested your imaging first. ? Narrative [...] have questions please contactthe health animal care taker that requested your imaging first. Lalit Mcmahon MD IMG DX ORDERABLES * ELECTROPHYSIOLOGY PROCEDURE (07/23/2022 1:11 PM EDT) Anatomical Region Laterality Modality Other Narrative 07/23/2022 4:24 PM EDT Table formatting from the original result was not included. BIVENTRICULAR ICD IMPLANTATION Patrol Commander: Lalit Mcmahon MD Fellow: Fadi Nunez MD [...] lateral branch of the CS in the YI view. This branch was cannulated with a [...] the entire procedure. LEAD AND GENERATOR DATA: Tailings Man Model # Serial # Generator [employer] [id number] Atrial Lead [employer] [id number] [id number] RV Lead [employer] 0672 [id number] LV Lead [employer] [id number] [id number] PACE/SENSE DATA: Sensed wave (mV) Threshold (V) [...] (cGycm2) 300 CONCLUSIONS: Successful implantation of a [employer] biventricular ICD for primary prevention and treatment of symptoms related to congestive heart failure. Follow up in EP clinic in 1-2 months. Procedures performed: new ICD system ( cpt 17288-X8); implant LV lead at time of ICD insertion (cpt 92137) I have read, edited and approve of this report: Lalit Mcmahon MD S Cardiac Electrophysiology 07/23/2022 4:22 PM Procedure Note Lalit Mcmahon MD - 07/23/2022 BIVENTRICULAR ICD IMPLANTATION Patrol Commander: Lalit Mcmahon MD Fellow: Fadi Nunez MD [...] appropriate lateralbranch of the CS in the YI view. This branch was cannulated with a [...] in the entireprocedure. LEAD AND GENERATOR DATA: Tailings Man Model # Serial # Generator [employer] [id number] Atrial Lead [employer] [id number] [id number] RV Lead [employer] 0672 336574 LV Lead [employer] 4674 383649 PACE/SENSE DATA: Sensed wave (mV) Threshold (V) [...] (cGycm2) 300 CONCLUSIONS: Successful implantation of a [employer] biventricular ICD forprimary prevention and treatment of symptoms related to congestive heartfailure. Follow up in EP clinic in 1-2 months. Procedures performed: new ICD system ( cpt 26729-U6); implant LV lead attime of ICD insertion (cpt 43239) I have read, edited and approve of this report: Lalit Mcmahon MD [facility] Cardiac Electrophysiology 07/23/2022 4:22 PM Lalit Mcmahon MD EP PROCEDURE ORDERAB LES * POCT Glucose (07/23/2022 12:54 PM EDT) Glucose, POC 83 65 - 199 mg/dL [facility] Comment: Supplemental ranges: <140 mg/dL before meals <180 mg/dL all other times of the day Blood 07/23/2022 12:5 4 PM EDT 07/23/2022 12:54 PM EDT Lalit Mcmahon MD POINT OF CARE TEST O RDERABLES Performing Organization Address [facility] Co de Phone Number [facility] [place] [address] * EKG 12 Lead (07/23/2022 12:33 PM EDT) Ventricular rate 72 BPM MUSE SYSTEM Atrial Rate 72 BPM MUSE SYSTEM P-R Interval 158 ms MUSE SYSTEM QRS Duration 176 ms MUSE SYSTEM Q-T Interval 458 ms MUSE SYSTEM QTC Calculated (Bezet) 501 ms MUSE SYSTEM Calculated P [place] 34 degrees MUSE SYSTEM Calculated R [place] 12 degrees MUSE SYSTEM Calculated T [place] -173 degrees MUSE SYSTEM INTERPRETATION Normal sinus rhythm Left bundle branch block Abnormal ECG No previous ECGs available Confirmed by MD Salome, Lalit ([id number]) on 07/23/2022 1:19:03 PM MUSE SYSTEM 07/23/2022 12:3 3 PM EDT 07/23/2022 1:19 PM EDT Lalit Mcmahon MD ECG ORDERABLES Performing Organization Address [facility] de Phone Number MUSE SYSTEM * Differential, Automated (07/23/2022 11:55 AM EDT) Neutrophil % 62.6 % [facility] Neutrophil Absolute 4.14 1.70 - 6.10 x10(3)/[facility] Lymph % 27.0 % [facility] Lymphocytes Abs 1.8 0.9 - 3.2 x10(3)/[facility] Monocyte % 7.3 % [facility] Monocyte Abs 0.5 0.3 - 0.9 x10(3)/[facility] Eos % 2.3 % [facility] Eosinophils Abs 0.2 0.0 - 0.4 x10(3)/[facility] Basophil % 0.6 % [facility] Baso Absolute 0.0 0.0 - 0.1 x10(3)/[facility] Immature Gran % 0.20 % [facility] Comment: Immature granulocytes(IG's)percentage and absolute count will include metamyelocytes, myelocytes, and promyelocytes. Blood smears from CBCs yielding IG's will be scanned manually for concordance. If this scan disagrees with the automated IG or if promyelocytes are noted, a manual differential will be performed. Immature Gran Absolute 0.01 0.00 - 0.04 x10(3)/[facility] Blood 07/23/2022 11:5 5 AM EDT 07/23/2022 12:07 PM EDT Narrative Resulting Agency Comment Spec In Lab Lalit Mcmahon MD HEMATOLOGY ORDERABLE S [facility] [place] [address] * Hemogram (07/23/2022 11:55 AM EDT) White Blood Cell 6.6 4.0 - 9.5 x10(3)/[facility] Red Blood Cell 4.50 4.00 - 5.21 x10(6)/[facility] Hemoglobin 13.7 11.7 - 15.5 g/dL [facility] Hematocrit 42.5 35.7 - 45.8 % [facility] Mean Cell Volume 94.4 82.6 - 94.4 fL [facility] Mean Cell Hemoglobin 30.4 27.1 - 32.0 pg [facility] Mean Cell Hemoglobin Concentration 32.2 31.7 - 35.0 g/dL [facility] Platelet 193 145 - 357 x10(3)/[facility] RDW Standard Deviation 45.5 37.0 - 46.0 fL [facility] RDW coefficient of variation 13.2 11.5 - 14.1 % [facility] Mean Platelet Volume 9.5 7.6 - 12.9 fL [facility] NRBC% auto 0.0 % [facility] NRBC Absolute 0.000 0.000 - 0.000 x10(3)/mcL [facility] Blood 07/23/2022 11:5 5 AM EDT 07/23/2022 12:07 PM EDT Narrative Resulting Agency Comment Spec In Lab Lalit Mcmahon MD HEMATOLOGY ORDERABLE S [facility] [address] [place] [address] * (ABNORMAL) BMP w/fasting Glucose (07/23/2022 11:55 AM EDT) Glucose Fasting 110(H) 65 - 99 mg/dL [facility] Comment: ?Fasting* Glucose Interpretive [...] of Diabetes Mellitus, Position Statement from the [place] [employer]. ??Diabetes Care, Volume 33, Supplement 1, Mar 2009 Blood Urea Nitrogen 23(H) 8 - 18 mg/dL [facility] Creatinine 1.07 0.70 - 1.20 mg/dL [facility] Sodium 141 135 - 145 mmol/L [facility] Potassium 4.8 3.5 - 5.0 mmol/L [facility] Comment: Please note: ??Patients with WBC >100,000 may have falsely elevated Potassium levels. ??For accurate Potassium quantification in these patients send serum separator tube (gold top) for subsequent determinations. ??Contact the Clinical Chemistry Laboratory if there are any questions. Chloride 106 98 - 107 mmol/L [facility] Carbon Dioxide 26 22 - 31 mmol/L [facility] Anion Gap 9 5 - 15 mmol/L [facility] Calcium 9.7 8.5 - 10.5 mg/dL [facility] Est Glomerular Filtration Rate 55(L) >=60 mL/min/1. 73 m?? [facility] Comment: This patient's estimated [...] Mcmahon MD CHEMISTRY ORDERABLES Performing Organization Address [facility] Co de Phone Number [facility] [place] [address] * Prothrombin Time (07/23/2022 11:55 AM EDT) Prothrombin Time 11.7 9.4 - 12.5 sec [facility] International Normalization Ratio 1.0 [facility] Comment: An INR <2.0 [...] MD HEMATOLOGY ORDERABLE S Performing Organization Address [facility] Co de Phone Number [facility] [place] [address] documented in this encounter Visit Diagnoses Diagnosis HFrEF (heart failure with reduced ejection fraction)- Primary Left bundle branch block Other left bundle branch block Nonischemic cardiomyopathy Other primary cardiomyopathies Cardiac resynchronization therapy defibrillator (JEWELRY CUTTER-D) in place Left bundle branch block Other [...] Routine documented in this encounter Care Teams Manager Of Enterprise Relationship Specialty Start Date End Date Lolly Oliveira MD [address] [place] [address] PCP - General 07/17/13 documented as of this encounter
--- OUTSIDE RECORDS SUMMARY | 2024-03-10 11:24 | XMS_ITS | Encounter Summary ---
Author Organization [facility] Address [address] [place] [address] Care Team Providers Care Canine Deputy Name Role Phone Lolly Oliveira MD Primary Care Provider [phone] Encounter Details Date Type Department Care Team (Late st Contact Info) Description 05/29/2002 Results Only [facility] conversion [address] [place] [address] Silvia Diehl, [address] [place] [place] [id number] Social History Tobacco Use Types Packs/Day Years [...] when reading/interpreti ng unformatted reports. Name: ? LYLE, JING ? Accession #: ? [id number] : ? 1950 (Age: 51) ??F ?Collect Date: ? 05/29/2002 Location: ? [facility] ? Receive Date: ? 05/31/2002 Provider: ?SILVIA DIEHL INSTALLATION SPECIALIST Copy to: ? Specimen/Source: ?ThinPrep Pap Test, [...] [facility] 05/29/2002 05/31/2002 us Silvia Diehl INSTALLATION SPECIALIST PATHOLOGY ORDERABLES Final R esult [facility] [address] [place] [address] documented in this encounter Visit Diagnoses Not on filedocumented in this encounter Care Teams Canine Deputy Relationship Specialty Start Date End Date Lolly Oliveira MD [address] [place] [address] PCP - General 11/13/08 documented as of this encounter
--- OUTSIDE RECORDS SUMMARY | 2024-03-10 11:24 | XMS_ITS | Encounter Summary ---
Author Organization [facility] [place] [address] Care Team Providers Care Photographer Portrait Name Role Phone Lolly Oliveira MD Primary Care Provider Encounter Details Date Type Department Care Team (Latest Contact Info) Description 04/21/2023 10:00 AM EST - 04/21/2023 11:59 PM EST Hospital Encounter Non[place] [phone] Discharge Disposition: Home Social History Tobacco Use [...] with spacer fluticasone propionate (Flonase) 50 mcg/actuation [place], Suspension 1 spray by Each Nare route [...] AM EST Hospital Encounter Non-[place] [address] Arrived documented as of this [...] on filedocumented in this encounter Care Teams Photographer Portrait Relationship Specialty Start Date End Date Lolly Oliveira MD [address] [place] [address] PCP - General 07/17/13 documented as of this encounter
--- OUTSIDE RECORDS SUMMARY | 2024-03-10 11:24 | XMS_ITS | Encounter Summary ---
Author Organization Health system Address [address] [place] [address] Care Team Providers Care Retail Sales Associate Name Role Phone Lolly Oliveira MD Primary Care Provider [phone] Encounter Details Date Type Department Care Team (Late st Contact Info) Description 02/20/2020 Lab Requisition [facility] Pathology & Laboratory Medicine - [address] [id number] Outr Resulting Lab, Provider Social History Tobacco [...] in accordance with CLIA regulations, [employer] (CAP) guidelines (May 25, 2019), and FDA guidance (May 06, 2019). This test is only for use under the Food and Drug Administration's Emergency Use Authorization. Swab ENTIRE NASOPHARYNX / Unknown 02/19/2020 16:30 EST 02/20/2020 16:09 EST us Provider Outr Resulting Lab MICROBIOLOGY - GENER AL ORDERABLES Final Result [facility] [place], [place] * COVID-19 TESTING (02/19/2020 16:30 EST) COVID-19 rt-PCR Result NEGATIVE Negative 02/22/2020 23:41 EST [facility] Comment: 2019-novel Coronavirus (2019-nCoV) not [...] in accordance with CLIA regulations, [employer] (CAP) guidelines (May 25, 2019), and FDA guidance (May 06, 2019). This test is only for use under the Food and Drug Administration's Emergency Use Authorization. Performing Lab [facility] 02/22/2020 23:41 EST [facility] Swab 02/19/2020 16:3 0 EST 02/20/2020 16:09 EST us Provider Outr Resulting Lab MICROBIOLOGY - GENER AL ORDERABLES Final Result [facility] [address] [place] [address] [facility] [place], [place] documented in this encounter Visit Diagnoses Not on filedocumented in this encounter Care Teams Retail Sales Associate Relationship Specialty Start Date End Date Lolly Oliveira MD [address] [place] [address] PCP - General 11/13/08 documented as of this encounter
--- OUTSIDE RECORDS SUMMARY | 2024-03-10 11:24 | XMS_ITS | Encounter Summary ---
Author Organization [facility] [place] [address] Care Team Providers Care Patient Care Associate Name Role Phone Lolly Oliveira MD Primary Care Provider [phone] Encounter Details Date Type Department Care Team (Late st Contact Info) Description 05/18/2023 Refill Dermatology at [address] [address] Nora Meredith LPN Social History [...] patient. She voiced understanding. Order sent to [facility] drug. documented in this encounter Plan of Treatment Upcoming Encounters Date Type Department Care Team (Late st Contact Info) Description 04/15/2024 10:00 AM EST Hospital Encounter Non-Invasive [place] [address] Arrived documented as of this encounter Visit Diagnoses Not on filedocumented in this encounter Care Teams Patient Care Associate Relationship Specialty Start Date End Date Lolly Oliveira MD [address] [place] [address] PCP - General 07/17/13 documented as of this encounter
--- OUTSIDE RECORDS SUMMARY | 2024-03-10 11:24 | XMS_ITS | Clinical Summary ---
Author Organization [facility] [place] [address] Care Team Providers Care Hogshead Inspector Name Role Phone Lolly Oliveira MD Primary Care Provider [phone] Allergies Active Allergy Reactions Criticality Noted Date [...] spacer Active fluticasone propionate (Flonase) 50 mcg/actuation [place], Suspension 1 spray by Each Nare route [...] PM EST Hospital Encounter [place] [address] Discharge Disposition: Home from Last [...] AM EST Hospital Encounter [place] [address] Arrived Health Maintenance Due Date Last Done [...] series) 11/07/2023 Medical Devices Implanted Type Area Transformer Molder Device Identifier Shelf Expiration Date Model / Serial / Lot Bsx: [id number]: [id number]/18/2 023 Implanted: by Lalit Mcmahon MD (Quantity not on file) Defibrillator Chest Wall [employer] [id number] / [id number] / Bsx: [id number]: [id number]/18/2 023 Implanted: by Lalit Mcmahon MD (Quantity not on file) Lead Heart [employer] [id number] / [id number] / Bsx: [id number]: [id number] Implanted: by Lalit Mcmahon MD (Quantity not on file) Lead Heart [employer] [id number] / [id number] / Bsx: 0672: [id number]/18/2 023 Implanted: by Lalit Mcmahon MD (Quantity not on file) Lead Heart [employer] [id number] / [id number] / Advance Directives * Attempt Cardiopulmonary Resuscitation - Inpatient (Latest Code Status on File) Date Activated Date Inactivated Comments 07/23/2022 4:30 PM 07/24/2022 12:32 PM Question Answer Comments Code Status decision made by: Patient Care Teams Hogshead Inspector Relationship Specialty Start Date End Date Lolly Oliveira MD [address] [place] [address] PCP - General 07/17/13
--- OUTSIDE RECORDS SUMMARY | 2024-03-10 11:24 | XMS_ITS | Clinical Summary ---
Author Organization [facility] Address [address] [place] [address] Care Team Providers Care Lime Vat Tender Name Role Phone Lolly Oliveira MD Primary Care Provider [phone] Social History Tobacco Use Types Packs/Day Years [...] 08/10/2023 COVID-19 Vaccine (2023- season) 2023 Insurance [facility] MEDIC[facility] Care Teams Lime Vat Tender Relationship Specialty Start Date End Date Berrian, Lolly, MD [address] [place] [address] PCP - General 11/13/08
--- OUTSIDE RECORDS SUMMARY | 2024-03-10 11:24 | XMS_ITS | Encounter Summary ---
Author Organization [facility] Address [facility] [place] [address] Care Team Providers Care Dairy Equipment Specialist Name Role Phone Lolly Oliveira MD Primary Care Provider [phone] Encounter Details Date Type Department Care Team (Late st Contact Info) Description 11/11/2022 Orders Only Cardiology at [address] [phone] Lalit Mcmahon MD [facility] [place] [address] Nonischemic cardiomyopathy Social History Tobacco Use Types [...] [facility] Hospital Encounter Non-[place] [phone] Arrived documented as of this encounter Visit Diagnoses Diagnosis Nonischemic cardiomyopathy Other primary cardiomyopathies documented in this encounter Care Teams Dairy Equipment Specialist Relationship Specialty Start Date End Date Berrian, Lolly M, MD [address] [place] [address] PCP - General 07/17/13 documented as of this encounter
--- OUTSIDE RECORDS SUMMARY | 2024-03-10 11:24 | XMS_ITS | Encounter Summary ---
Author Organization [facility] Address [address] [place] [address] Care Team Providers Care Cage Clerk Name Role Phone Lolly Oliveira MD Primary Care Provider [phone] Encounter Details Date Type Department Care Team (Late st Contact Info) Description 11/13/2020 Lab Requisition [facility] Pathology & Laboratory Medicine - [address] [address] Outr Resulting Lab, Provider Social History Tobacco [...] GENER AL ORDERABLES Final Result [facility] [address] [place] [address] * COVID-19 TESTING (11/13/2020 7:30 EDT) COVID-19 rt-PCR Result Negative Negative 11/14/2020 11:46 EDT [facility] Comment: This test has [...] performed using the med SARS-CoV-2 assay (Stephanie [employer] on the Med 6800 System Performing Lab Med [address] [facility] Lab 11/14/2020 11:46 EDT [facility] Swab 11/13/2020 7:30 EDT 11/13/2020 20:57 EDT us Provider Outr Resulting Lab MICROBIOLOGY - GENER AL ORDERABLES Final Result Performing Organization Address [facility] Co de Phone Number [facility] [address] [place] [address] documented in this encounter Visit Diagnoses Not on filedocumented in this encounter Care Teams Cage Clerk Relationship Specialty Start Date End Date Lolly Oliveira MD [address] [place] [address] PCP - General 11/13/08 documented as of this encounter
--- OUTSIDE RECORDS SUMMARY | 2024-03-10 11:24 | XMS_ITS | Encounter Summary ---
Author Organization [facility] Address [facility] [place] [address] Care Team Providers Care Janitor And Cleaner Name Role Phone Lolly Oliveira MD Primary Care Provider [phone] Encounter Details Date Type Department Care Team (Late st Contact Info) Description 03/15/2023 Orders Only Cardiology at [address] [address] Lalit Mcmahon MD [facility] [place] [address] Nonischemic cardiomyopathy; Biventricular ICD (implantable cardioverter-defibrill ator) [...] AM EST Hospital Encounter Non-Invasive [place] [address] Arrived documented as of this encounter Visit Diagnoses Diagnosis Nonischemic cardiomyopathy Other primary cardiomyopathies Biventricular ICD (implantable cardioverter-defibrillator) in place documented in this encounter Care Teams Janitor And Cleaner Relationship Specialty Start Date End Date Lolly Oliveira MD [address] [place] [address] PCP - General 07/17/13 documented as of this encounter
--- OUTSIDE RECORDS SUMMARY | 2024-03-10 11:24 | XMS_ITS | Encounter Summary ---
Author Organization [facility] Address [address] [place] [address] Care Team Providers Care Cleaning Associate Name Role Phone Lolly Oliveira MD Primary Care Provider [phone] Encounter Details Date Type Department Care Team (Late st Contact Info) Description 03/21/2019 Lab Requisition [facility] Pathology & Laboratory Medicine - [address] [address] Unknown, Provider, Social History Tobacco Use Types [...] 211 - 911 pg/mL 03/22/2019 11:52 EST [facility] Blood VENOUS BLOOD / Unknown 03/16/2019 9:25 EST 03/21/2019 21:35 EST us Provider Unknown CHEMISTRY & BLOOD GAS ORDERA BLES Final Result [facility] [address] [place] [address] documented in this encounter Visit Diagnoses Not on filedocumented in this encounter Care Teams Cleaning Associate Relationship Specialty Start Date End Date Lolly Oliveira MD [address] [place] [address] PCP - General 11/13/08 documented as of this encounter
--- OUTSIDE RECORDS SUMMARY | 2024-03-10 11:24 | XMS_ITS | Encounter Summary ---
Author Organization [facility] Address [address] [place] [address] Care Team Providers Care Management Trainee Program Stores Name Role Phone Lolly Oliveira MD Primary Care Provider [phone] Encounter Details Date Type Department Care Team (Late st Contact Info) Description 03/06/2003 Results Only [facility] conversion [address] [place] [address] Lolly Oliveira MD [address] [place], [place] [phone] Social History Tobacco Use Types Packs/Day Years [...] ORDERABLES Final Resu lt [facility] [address] [place] [address] documented in this encounter Visit Diagnoses Not on filedocumented in this encounter Care Teams Management Trainee Program Stores Relationship Specialty Start Date End Date Lolly Oliveira MD [address] [place] [address] PCP - General 11/13/08 documented as of this encounter
--- OUTSIDE RECORDS SUMMARY | 2024-03-10 11:24 | XMS_ITS | Encounter Summary ---
Author Organization [facility] [place] [address] Care Team Providers Care Rope Cleaner Name Role Phone Lolly Oliveira MD Primary Care Provider [phone] Reason for Visit * Reason Onset Date Comments Other 07/24/2022 Implanted Cardia c Device Teaching/Education Encounter Details Date Type Department Care Team (Late st Contact Info) Description 07/24/2022 Notes Only Cardiology at [address] [phone] Letha Arroyo Other (Implanted Cardiac Device Teaching/Education) [...] to call the Cardiac Device Clinic at [phone] with any questions. Plan: Post op check: [...] [place] [facility] Encounter Non-[place] [address] Arrived documented as of this encounter Visit Diagnoses Not on filedocumented in this encounter Care Teams Rope Cleaner Relationship Specialty Start Date End Date Lolly Oliveira MD [address] [place] [address] PCP - General 07/17/13 documented as of this encounter
--- OUTSIDE RECORDS SUMMARY | 2024-03-10 11:24 | XMS_ITS | Encounter Summary ---
Author Organization [facility] Address [address] [place] [address] Care Team Providers Care Wrecking Crane Engine Operator Name Role Phone Lolly Oliveira MD Primary Care Provider [phone] Encounter Details Date Type Department Care Team (Late st Contact Info) Description 05/27/2021 Lab Requisition [facility] Pathology & Laboratory Medicine - [address] [address] Iman Moran, DO [address] [place], [place] [phone] Encounter for other general examination Social History [...] management options, if applicable. 05/30/2021 13:31 [facility] Final Diagnosis A. COLON, POLYP AT 90 CM, BIOPSY/POLYPECTOM Y: - Tubular adenoma. 05/30/2021 13:31 [facility] Attestation By the signature below, the attending physician certifies that they have 1) personally conducted a gross and/or microscopic examination of the described specimen(s), and/or personally interpreted the results of laboratory testing of the described specimen(s), and 2) personally rendered or confirmed the above diagnosis. 05/30/2021 13:31 [facility] at 1331 Clinical History Severe diverticula and polypectomy x1 05/30/2021 13:31 [facility] Gross Description A. Received in formalin labelled with proper patient identification (initials J, K) and colon polyp x1 at 90 cm is a light pineda polypoid tissue measuring 0.2 x 0.2 x 0.2 cm. Submitted intact in A1. MICKEY CARLOS(ASCP) 05/27/2021 19:11 05/30/2021 13:31 [facility] Performing Lab [facility] 05/30/2021 13:31 [facility] Scanned Images 05/30/2021 13:31 [facility] Tissue ENTIRE COLON / Unknown 05/27/2021 11:23 EDT 05/27/2021 16:33 EDT us Iman Moran DO PATHOLOGY ORDERABLES Final Re sult [facility] [address] [place] [address] documented in this encounter Visit Diagnoses Diagnosis Encounter for other general examination documented in this encounter Care Teams Wrecking Crane Engine Operator Relationship Specialty Start Date End Date Lolly Oliveira MD [address] [place] [address] PCP - General 11/13/08 documented as of this encounter
--- OUTSIDE RECORDS SUMMARY | 2024-03-10 11:24 | XMS_ITS | Encounter Summary ---
Author Organization [facility] [place] [address] Care Team Providers Care Company Driver Name Role Phone Lolly Oliveira MD Primary Care Provider [phone] Encounter Details Date Type Department Care Team (Late st Contact Info) Description 03/17/2023 Telephone Cardiology at [address] [phone] Saranya Ma Social History Tobacco Use Types Packs/Day Years Used Date Smoking Tobacco: Never Alcohol Use Standard Drinks/Week Comments Not Currently 0 (1 standard drink = 0.6 oz pur e alcohol) [facility] Inpatient Questions Answer Date Recorded Does [...] 9:43 AM EST Echo order faxed to [facility] at [phone]. No Prior auth needed. Ref #:[id number]. Saranya Ma Sr. Clinical Procedure Valier/Lace Weaver documented in this encounter Plan of Treatment Upcoming Encounters Date Type Department Care Team (Late st Contact Info) Description 04/15/2024 10:00 AM [facility] Hospital Encounter Non-Invasive [place] [address] Arrived documented as of this encounter Visit Diagnoses Not on filedocumented in this encounter Care Teams Company Driver Relationship Specialty Start Date End Date Lolly Oliveira MD [address] [place] [address] PCP - General 07/17/13 documented as of this encounter
--- OUTSIDE RECORDS SUMMARY | 2024-03-10 11:24 | XMS_ITS | Encounter Summary ---
Author Organization [facility] Address [facility] [place] [address] Care Team Providers Care Gauge And Weigh Machine Operator Name Role Phone Lolly Oliveira MD Primary Care Provider [phone] Encounter Details Date Type Department Care Team (Late st Contact Info) Description 01/29/2023 Notes Only Cardiology at [address] [address] Merle Lin PA [facility] [place] [address] Social History Tobacco Use Types Packs/Day Years Used Date Smoking Tobacco: Never Alcohol Use Standard Drinks/Week Comments Not Currently 0 (1 standard drink = 0.6 oz pur e alcohol) [facility] Inpatient Questions Answer Date Recorded [...] pdf document Date of transmission: 01/29/2023 Device clay carman: BSI Device type: FINISHING MANAGER-D Presenting rhythm: /RVP/LVP AP 21% Right CHEMICAL RADIATION TECHNICIAN 100% Left CHEMICAL RADIATION TECHNICIAN: 100% Battery: 10.5 years [employer] Index rising in setting of increasing S3 intensity, increasing respiratory rate, increasing night heart rate, and increasing mean heart rate. MICKEY Villa 01/29/2023 9:06 AM documented in this encounter Plan of Treatment Upcoming Encounters Date Type Department Care Team (Late st Contact Info) Description 04/15/2024 10:00 AM EST Hospital Encounter Non-Invasive [place] [address] Arrived documented as of this encounter Visit Diagnoses Not on filedocumented in this encounter Care Teams Gauge And Weigh Machine Operator Relationship Specialty Start Date End Date Lolly Oliveira MD [address] [place] [address] PCP - General 07/17/13 documented as of this encounter
--- OUTSIDE RECORDS SUMMARY | 2024-03-10 11:24 | XMS_ITS | Encounter Summary ---
Author Organization [facility] [place] [address] Care Team Providers Care Fish Dressing Machine Feeder Name Role Phone Lolly Oliveira MD Primary Care Provider [phone] Reason for Visit * Reason Onset Date Comments Post Procedure Call 07/30/2022 Encounter Details Date Type Department Care Team (Late st Contact Info) Description 07/30/2022 Notes Only Cardiology at [address] [phone] Rosenda Sutton, RN Post Procedure Call Social [...] 07/30/2022 9:59 AM EDTSummary: Post Procedure Call: DRAPERY OPERATOR implant EP RN Post-Procedure Note: Date [...] Note: Follow-up Recommendations for Providers: - s/p DRAPERY OPERATOR-D implant - post implant QRS 130 [...] [facility] Hospital Encounter Non-[place]vasive [place] [address] Arrived documented as of this encounter Visit Diagnoses Not on filedocumented in this encounter Care Teams Fish Dressing Machine Feeder Relationship Specialty Start Date End Date Lolly Oliveira MD [address] [place] [address] PCP - General 07/17/13 documented as of this encounter
--- OUTSIDE RECORDS SUMMARY | 2024-03-10 11:24 | XMS_ITS | Encounter Summary ---
Author Organization [facility] Address [address] [place] [address] Care Team Providers Care Survey Research Manager Name Role Phone Lolly Oliveira MD Primary Care Provider [phone] Encounter Details Date Type Department Care Team (Late st Contact Info) Description 04/12/2007 Results Only [facility] conversion [address] [place] [address] Lolly Oliveira MD [address] [place], [place] [phone] Social History Tobacco Use Types Packs/Day Years [...] ? JING ALVARENGA ? Accession #: ? [id number] : ? 1950 (Age: 56) ??F ?Collect Date: ? 04/12/2007 Location: ? [facility] ? Receive Date: ? 04/13/2007 Provider: ?LOLLY OLIVEIRA MD Copy to: ? Specimen/Source: ?ThinPrep Pap Test, Cervix/Endocervix, processed on [employer] ThinPrep Imaging System, with manual evaluation Last [...] ORDERABLES Final Resu lt [facility] [address] [place] [address] documented in this encounter Visit Diagnoses Not on filedocumented in this encounter Care Teams Survey Research Manager Relationship Specialty Start Date End Date Lolly Oliveira MD [address] [place] [address] PCP - General 11/13/08 documented as of this encounter
--- OUTSIDE RECORDS SUMMARY | 2024-03-10 11:24 | XMS_ITS | Encounter Summary ---
Author Organization [facility] Address [facility] [address] Care Team Providers Care Yarn Washer Name Role Phone Lolly Oliveira MD Primary Care Provider [phone] Encounter Details Date Type Department Care Team (Late st Contact Info) Description 05/03/2023 Telephone Cardiology at [address] [phone] Lalit Mcmahon MD [facility] [place] [address] Social History Tobacco Use Types Packs/Day Years [...] Encounter Non-Invasive [place] [address] Arrived documented as of this encounter Visit Diagnoses Not on filedocumented in this encounter Care Teams Yarn Washer Relationship Specialty Start Date End Date Lolly Oliveira MD [address] [place] [address] PCP - General 07/17/13 documented as of this encounter
--- OUTSIDE RECORDS SUMMARY | 2024-03-10 11:24 | XMS_ITS | Encounter Summary ---
Author Organization [facility] [place] [address] Care Team Providers Care Patient Admitting Representative Name Role Phone Lolly Oliveira MD Primary Care Provider [phone] Encounter Details Date Type Department Care Team (Latest Contact Info) Description 10/18/2023 10:00 AM EDT - 10/18/2023 11:59 PM EDT Hospital Encounter Non[place] [phone] Discharge Disposition: Home Social History Tobacco Use [...] AM EST Hospital Encounter Non-[place]vasive [place] [address] Arrived documented as of this encounter Procedures [...] filedocumented in this encounter Care Teams Patient Admitting Representative Relationship Specialty Start Date End Date Lolly Oliveira MD [address] [place] [address] PCP - General 07/17/13 documented as of this encounter
--- OUTSIDE RECORDS SUMMARY | 2024-03-10 11:24 | XMS_ITS | Referral Summary ---
Author Organization [facility] Address [address] [place] [address] Care Team Providers Care Cat Cracker Operator Name Role Phone Lolly Oliveira MD Primary Care Provider [phone] Social History Tobacco Use Types Packs/Day Years Used Date Smoking Tobacco: Never Assessed Comments Unknown Sex and Gender Information Value Date Recorded Sex Assigned at Not on file Legal Sex Female 18:31 EST Gender Identity Not on file Sexual Orientation Not on file Plan of Treatment Not on file Insurance [facility] MEDICARE Care Teams Cat Cracker Operator Relationship Specialty Start Date End Date Lolly Oliveira MD [address] [place] [address] PCP - General 11/13/08
--- OUTSIDE RECORDS SUMMARY | 2024-03-10 11:24 | XMS_ITS | Encounter Summary ---
Author Organization [facility] Address [address] [place] [address] Care Team Providers Care Claims Administrator Name Role Phone Lolly Oliveira MD Primary Care Provider [phone] Encounter Details Date Type Department Care Team (Late st Contact Info) Description 04/17/2005 Results Only [facility] conversion [address] [place] [address] Lolly Oliveira MD [address] [place], [place] [phone] Social History Tobacco Use Types Packs/Day Years [...] ? JING ALVARENGA ? Accession #: ? [id number] : ? 1950 (Age: 54) ??F ?Collect Date: ? 04/17/2005 Location: ? [facility] ? Receive Date: ? 04/21/2005 Provider: ?LOLLY OLIVEIRA MD Copy to: ? Specimen/Source: ?ThinPrep Pap Test, Cervix/Endocervix, processed on [employer] ThinPrep Imaging System, with manual evaluation Last [...] Final Resu lt [facility] [address] [place] [address] documented in this encounter Visit Diagnoses Not on filedocumented in this encounter Care Teams Claims Administrator Relationship Specialty Start Date End Date Lolly Oliveira MD [address] [place] [address] PCP - General 11/13/08 documented as of this encounter
--- OUTSIDE RECORDS SUMMARY | 2024-03-10 11:24 | XMS_ITS | Encounter Summary ---
Author Organization [facility] [place] [address] Care Team Providers Care Resource Manager Name Role Phone Lolly Oliveira MD Primary Care Provider [phone] Encounter Details Date Type Department Care Team (Latest Contact Info) Description 07/20/2023 10:00 AM EDT - 07/20/2023 11:59 PM EDT Hospital Encounter [place] [phone] Discharge Disposition: Home Social History Tobacco Use [...] with spacer fluticasone propionate (Flonase) 50 mcg/actuation [place], Suspension 1 spray by Each Nare route daily as needed. documented as of this encounter Plan of Treatment Upcoming Encounters Date Type Department Care Team (Late st Contact Info) Description 04/15/2024 10:00 AM EST Hospital Encounter [place] [address] Arrived documented as of this encounter Procedures [...] on filedocumented in this encounter Care Teams Resource Manager Relationship Specialty Start Date End Date Lolly Oliveira MD [address] [place] [address] PCP - General 07/17/13 documented as of this encounter
--- OUTSIDE RECORDS SUMMARY | 2024-03-10 11:24 | XMS_ITS | Encounter Summary ---
Author Organization [facility] Address [address] [place] [address] Care Team Providers Care Graphic Design Assistant Name Role Phone Lolly Oliveira MD Primary Care Provider [phone] Encounter Details Date Type Department Care Team (Late st Contact Info) Description 05/02/2004 Results Only [facility] conversion [address] [place] [address] Lolly Oliveira MD [address] [place], [place] [id number] Social History Tobacco Use Types Packs/Day Years [...] 68. [facility] Report Status Final [id number] [facility] 05/02/2004 9:32 EST 05/10/2004 9:32 EST us Lolly Oliveira MD MICROBIOLOGY - GENERAL ORDERABL ES Final Result [facility] [address] [place] [address] * CYTOPATHOLOGY (05/02/2004 0:00 EST) Pathology Report: CYTOPATHOLOGY REPORT Reports generated via electronic interface contain original data; however they are lacking the format of the original report. Caution should be taken when reading/interpreti ng unformatted reports. Name: ? JING ALVARENGA ? Accession #: ? [id number] : ? 1950 (Age: 53) ??F ?Collect [...] ORDERABLES Final Resu lt Performing Organization Address City/State/[facility] Co de Phone Number [facility] [address] [place] [address] documented in this encounter Visit Diagnoses Not on filedocumented in this encounter Care Teams Graphic Design Assistant Relationship Specialty Start Date End Date Lolly Oliveira MD [address] [place] [address] PCP - General 11/13/08 documented as of this encounter
--- OUTSIDE RECORDS SUMMARY | 2024-03-10 11:24 | XMS_ITS | Encounter Summary ---
Author Organization [facility] [place] [address] Care Team Providers Care Sewer Maintenance Supervisor Name Role Phone Lolly Oliveira MD Primary Care Provider [phone] Encounter Details Date Type Department Care Team (Late st Contact Info) Description 03/15/2023 Telephone Cardiology at [address] [phone] Saranya Ma Social History Tobacco Use Types [...] her to have an echo done at [facility] prior to her appt withhim there on 05/12/23. Message sent to Dr. Mcmahon asking him to put order in if he would like her to have this done. Saranya Ma Sr. Clinical Procedure [place]/Monitoring Analyst documented in this encounter Plan of Treatment Upcoming Encounters Date Type Department Care Team (Late st Contact Info) Description 04/15/2024 10:00 AM EST Hospital Encounter Non-[place] [address] Arrived documented as of this encounter Visit Diagnoses Not on filedocumented in this encounter Care Teams Sewer Maintenance Supervisor Relationship Specialty Start Date End Date Lolly Oliveira MD [address] [place] [address] PCP - General 07/17/13 documented as of this encounter
--- OUTSIDE RECORDS SUMMARY | 2024-03-10 11:24 | XMS_ITS | Encounter Summary ---
Author Organization [facility] Address [address] [place] [address] Care Team Providers Care Residential Remodeling Subcontractor Name Role Phone Lolly Oliveira MD Primary Care Provider [phone] Encounter Details Date Type Department Care Team (Late st Contact Info) Description 04/25/2009 Orders Only [facility] Laboratory Services - [facility] [address] [place], [place] [phone] Lolly Oliveira MD [address] [place], [place] [id number] Social History Tobacco Use Types Packs/Day Years [...] ? JING ALVARENGA ? Accession #: ? [id number] ? : ? 1950 (Age: 58) ??F [...] reviewed and electronically signed by: ? Helena Knippa, CT(ASCP) ? Report Date: ??04/29/2009 10:38 ? End of Report ? [facility] 04/25/2009 04/26/2009 us Lolly Oliveira MD PATHOLOGY ORDERABLES Final Resu lt Performing Organization Address [facility]/State/ZIP Co de Phone Number [facility] [address] [place] [address] documented in this encounter Visit Diagnoses Not on filedocumented in this encounter Care Teams Residential Remodeling Subcontractor Relationship Specialty Start Date End Date Lolly Oliveira MD [address] [place] [address] PCP - General 11/13/08 documented as of this encounter
--- OUTSIDE RECORDS SUMMARY | 2024-03-10 11:24 | XMS_ITS | Encounter Summary ---
Author Organization [facility] [place] [address] Care Team Providers Care Tin Pourer Name Role Phone Lolly Oliveira MD Primary Care Provider [phone] Encounter Details Date Type Department Care Team (Late st Contact Info) Description 05/18/2023 Telephone Dermatology at [address] [address] oNra Meredith LPN Social History Tobacco Use Types [...] [facility] Hospital Encounter Non-Invasive [place] [phone] Arrived documented as of this encounter Visit Diagnoses Not on filedocumented in this encounter Care Teams Tin Pourer Relationship Specialty Start Date End Date Lolly Oliveira MD [address] [place] [address] PCP - General 07/17/13 documented as of this encounter
--- OUTSIDE RECORDS SUMMARY | 2024-03-10 11:24 | XMS_ITS | Encounter Summary ---
Author Organization [facility] [place] [address] Care Team Providers Care Labor Relations Director Name Role Phone Lolly Oliveira MD Primary Care Provider [phone] Encounter Details Date Type Department Care Team (Latest Contact Info) Description 01/21/2023 10:00 AM EST - 01/21/2023 11:59 PM EST Hospital Encounter [place] [phone] Discharge Disposition: Home Social History Tobacco Use [...] with spacer fluticasone propionate (Flonase) 50 mcg/actuation [place], Suspension 1 spray by Each Nare route [...] AM EST Hospital Encounter [place] [address] Arrived documented as of this [...] in this encounter Care Teams Labor Relations Director Relationship Specialty Start Date End Date Lolly Oliveira MD [address] [place] [address] PCP - General 07/17/13 documented as of this encounter
--- OUTSIDE RECORDS SUMMARY | 2024-03-10 11:24 | XMS_ITS | Encounter Summary ---
Author Organization [facility] [place] [address] Care Team Providers Care Director Investor Relations Name Role Phone Lolly Oliveira MD Primary Care Provider [phone] Encounter Details Date Type Department Care Team [...] EST Hospital Encounter Non-Invasive [place] [address] Arrived documented as of this encounter Visit Diagnoses Not on filedocumented in this encounter Care Teams Director Investor Relations Relationship Specialty Start Date End Date Lolly Oliveira MD [address] [place] [address] PCP - General 07/17/13 documented as of this encounter
--- OUTSIDE RECORDS SUMMARY | 2024-03-10 11:24 | XMS_ITS | Encounter Summary ---
Author Organization [facility] [place] [address] Care Team Providers Care Wafer Mounter Name Role Phone Lolly Oliveira MD Primary Care Provider [phone] Reason for Visit * Reason Comments Follow-up 8 weeks UVB treatmen t twice weekly Encounter Details Date Type Department Care Team (Late st Contact Info) Description 07/19/2023 11:00 AM EDT Office Visit Dermatology at [address] [phone] Clay Ramírez MD [address], ERIKA A DERMATOLOGY [place], [place] [id number] Psoriasis Social History Tobacco Use Types Packs/Day [...] [facility] Encounter [place] [address] Arrived documented as of this encounter Visit Diagnoses Diagnosis Psoriasis Other psoriasis documented in this encounter Care Teams Wafer Mounter Relationship Specialty Start Date End Date Lolly Oliveira MD [address] [place] [address] PCP - General 07/17/13 documented as of this encounter
--- OUTSIDE RECORDS SUMMARY | 2024-03-10 11:24 | XMS_ITS | Encounter Summary ---
Author Organization [facility] Address [address] [place] [address] Care Team Providers Care Beer Runner Name Role Phone Lolly Oliveira MD Primary Care Provider [phone] Encounter Details Date Type Department Care Team (Late st Contact Info) Description 02/11/2021 Lab Requisition [facility] Pathology & Laboratory Medicine - [address] [id number] Outr Resulting Lab, Provider Social History Tobacco [...] - GENER AL ORDERABLES Final Result [facility] [address] [place] [address] * COVID-19 TESTING (02/11/2021 8:00 EST) COVID-19 rt-PCR Result Negative Negative 02/12/2021 14:17 EST [facility] Comment: This test [...] performed using the med SARS-CoV-2 assay ([employer] on the Med 6800 System Performing Lab Med [address] [facility] Lab 02/12/2021 14:17 EST [facility] Swab 02/11/2021 8:00 EST 02/11/2021 22:22 EST us Provider Outr Resulting Lab MICROBIOLOGY - GENER AL ORDERABLES Final Result [facility] [address] [place] [address] documented in this encounter Visit Diagnoses Not on filedocumented in this encounter Care Teams Beer Runner Relationship Specialty Start Date End Date Lolly Oliveira MD [address] [place] [address] PCP - General 11/13/08 documented as of this encounter
--- OUTSIDE RECORDS SUMMARY | 2024-03-10 11:24 | XMS_ITS | Encounter Summary ---
Author Organization [facility] [place] [address] Care Team Providers Care Conservation Science Officer Name Role Phone Lolly Oliveira MD Primary Care Provider [phone] Encounter Details Date Type Department Care Team (Latest Contact Info) Description 01/16/2024 10:00 AM EST - 01/16/2024 11:59 PM EST Hospital Encounter [place] [phone] Discharge Disposition: Home Social History Tobacco Use [...] with spacer fluticasone propionate (Flonase) 50 mcg/actuation [place], Suspension 1 spray by Each Nare route daily as needed. documented as of this encounter Plan of Treatment Upcoming Encounters Date Type Department Care Team (Late st Contact Info) Description 04/15/2024 10:00 AM EST Hospital Encounter [place] [phone] Arrived documented as of this encounter Procedures [...] on filedocumented in this encounter Care Teams Conservation Science Officer Relationship Specialty Start Date End Date Lolly Oliveira MD [address] [place] [address] PCP - General 07/17/13 documented as of this encounter
--- OUTSIDE RECORDS SUMMARY | 2024-03-10 11:24 | XMS_ITS | Encounter Summary ---
Author Organization [place] [address] Care Team Providers Care Student Specialist Name Role Phone Lolly Oliveira MD Primary Care Provider [phone] Reason for Visit * Auth/Cert (Routine) Specialty Diagnoses / Procedures Referred By Contac t Referred To Contact Diagnoses Left bundle-branch block, unspecified Other cardiomyopathies Left bundle branch block [I44.7]Nonischemic cardiomyopathy [I42.8] Procedures PRG CATH PLMT LEFT HEART CATH & ARTS W/INJ & ANGIO IMG S&I ELECTROPHYSIOLOGY PROCEDURE Lalit Mcmahon MD [facility] [place] [address] [facility] Referral ID Status Reason Start Date Expiration Date Visits Re quested Visits Authorized [id number] 1 1 Encounter Details Date Type Department Care Team (Late st Contact Info) Description 07/23/2022 1:00 PM EDT - 07/23/2022 5:30 PM EDT Surgery [place] [address] Lalit Mcmahon MD [facility] [place] [address] ELECTROPHYSIOLOGY PROCEDURE Social History Tobacco Use Types [...] MD Follow-up Recommendations for Providers: - s/p SURGICAL SALES REPRESENTATIVE-D implant - post implant QRS 130 ms [...] Solar lentigo Operations/Major Procedures: 07/23/22: [facility] SURGICAL SALES REPRESENTATIVE-D implant History of Presentation: 71 y.o. female with a history of HFrEF, LBBB, QRS >150, NYHA II who is POD#1 of SURGICAL SALES REPRESENTATIVE-D implant ([employer]). Hospital Course: Elective admission for SURGICAL SALES REPRESENTATIVE-D implant Admitted post-implant for pain management, telemetry [...] (heart failure with reduced ejection fraction) [I50.20] SURGICAL SALES REPRESENTATIVE-D implant Admission Condition: good Indication for Admission: [...] g Refills: 3 fluticasone propionate 50 mcg/actuation [place], Suspension Commonly known as: Flonase 1 spray [...] the incision. Make sure to use a safety clothing and equipment developer (such as a towel) in between the [...] F. The office scheduling phone number is [phone]. ARM MOVEMENT RESTRICTIONS POST-IMPLANT - Do not [...] please call the Cardiac ElectrophysiologyTriage Nurse at [phone], option 3. General Instructions None Discharge References/Attachments None Lalit Mcmahon MD S Cardiac Electrophysiology 07/24/2022 12:33 PM documented in this encounter Discharge Instructions * Patient Instructions* Fadi Nunez MD - 07/24/2022 8:10 AM EDT FINAL ICD/PACEMAKER RECOMMENDATIONS: 1. Standard post implant discharge instructions (see below): 2. Medications as listed above. You may use ice packs over the incision. Make sure to use a safety clothing and equipment developer (such as a towel) in between the [...] F. The office scheduling phone number is [phone]. ARM MOVEMENT RESTRICTIONS POST-IMPLANT - Do not [...] please call the Cardiac ElectrophysiologyTriage Nurse at [phone], option 3. documented in this encounter Medications [...] with spacer fluticasone propionate (Flonase) 50 mcg/actuation [place], Suspension 1 spray by Each Nare route [...] Cardiac Electrophysiology Post-Implant Device Interrogation Luna Mott [id number] 07/24/2022 History: Luna Mott is a 71 y.o. female with a history of HFrEF, LBBB, QRS >150, NYHA II who is POD#1 of SURGICAL SALES REPRESENTATIVE-D implant ([employer]). Overall feels well this morning. Ready [...] WOB Neuro- A&Ox3 Device Interrogation: Data ?? Local Company Truck Driver Model # Serial # Generator [employer] [id number] Atrial Lead [employer] [id number] [id number] RV Lead [employer] 0672 [id number] LV Lead [employer] 4674 [id number] ?? Diagnostics Pacing Mode: DDD 60-130 Underlying Rhythm: [place] Atrial Episodes: None Ventricular Episodes: None FINAL PROGRAMMING: Pacing: Mode Lower rate (ppm) Upper rate (ppm) ?? DDD 60 130 VF: Rate (bpm) #Antitachycardia pacing First shock energy (J) ?? 200 Quick convert 41 VT: 170 Monitor only Monitor only ? Battery and Leads Impedances (ohms) Sensing (mV) Thresholds HV RA RV LV RA RV LV RA RV LV 73 455 [id number] 6589 (LVa) 7.7 13.1 >25 0.4V @ 0.4 ms 0.4V @ 0.4 ms 0.5 V @ 1.0 ms POD#1 CXR: All leads in nominal positioning Impression: 71 y.o. female who is s/p SURGICAL SALES REPRESENTATIVE-D implant for LBBB, NYHA II, HFrEF. - [...] Care Hospital) Fadi Nunez MD 07/24/2022 Pager: [phone] I met with the patient today and [...] agreement. ? Dr. Lalit Mcmahon, electrophysiology attending ([id number]) * Zaria Wright RN - 07/23/2022 8:28 [...] HF, QRS > 150 ms presents for SURGICAL SALES REPRESENTATIVE-D placement. ROS: Denies recent fevers or chills [...] 0.9) flush 5 mL 5 mL Intravenous [id number] ramos MD ??? sodium chloride 0.9 % [...] HF, QRS > 150 ms presents for SURGICAL SALES REPRESENTATIVE-D placement. Backup would be LBBAP lead. Antibiotics: cefazolin Rationales for, intended benefits and potential risk of planned procedures reviewed. The patient indicated understanding and agreement with the plan. Informed consent signed. Procedure checklist completed. Fadi Nunez MD Cardiac Electrophysiology Fellow [facility] Pager [phone] 07/23/2022 I met with the patient today [...] agreement. ? Dr. Lalit Mcmahon, electrophysiology attending ([id number]) documented in this encounter Miscellaneous Notes * Brief Op Note - Lalit Mcmahon MD - 07/23/2022 4:04 PM EDT Brief Operative Note Patient Name: Luna Mott : [id number] MR#: [id number] Case Date: 07/23/2022 Surgeon: Surgeon(s) and Role: [...] AM EST Hospital Encounter Non-Invasive [place] [address] Arrived Scheduled Orders Name Type Priority Associated Diagnoses Orde r Schedule EKG 12 Lead ECG Routine Cardiac resynchronization therapy defibrillator (SURGICAL SALES REPRESENTATIVE-D) in place One Time for 1 Occurrences [...] (Bezet) 522 ms MUSE SYSTEM Calculated R [place] 78 degrees MUSE SYSTEM Calculated T [place] -71 degrees MUSE SYSTEM INTERPRETATION AV dual-paced [...] have questions please contact the health care associate that requested your imaging first. ? Electronically signed by: Kwame Vargas MD, [facility] ([phone]), at 07/24/2022 6:43 AM Narrative 07/24/2022 6:43 [...] who have questions please contactthe health care associate that requested your imaging first. Electronically signed by: Kwame Vargas MD, [facility]([phone]), at 07/24/2022 6:43 AM Lalit Mcmahon MD IMG DX ORDERABLES * ELECTROPHYSIOLOGY PROCEDURE (07/23/2022 1:11 PM EDT) Anatomical Region Laterality Modality Other Narrative 07/23/2022 4:24 PM EDT Table formatting from the original result was not included. BIVENTRICULAR ICD IMPLANTATION Helper Maintenance Cleaning: Lalit Mcmahon MD Fellow: Fadi Nunez MD [...] lateral branch of the CS in the [place] view. This branch was cannulated with a [...] the entire procedure. LEAD AND GENERATOR DATA: Local Company Truck Driver Model # Serial # Generator [employer] [id number] Atrial Lead [employer] 7841 [id number] RV Lead [employer] 0672 [id number] LV Lead [employer] 4674 [id number] PACE/SENSE DATA: Sensed wave (mV) Threshold (V) [...] (cGycm2) 300 CONCLUSIONS: Successful implantation of a [employer] biventricular ICD for primary prevention and treatment of symptoms related to congestive heart failure. Follow up in EP clinic in 1-2 months. Procedures performed: new ICD system ( cpt 12923-Y5); implant LV lead at time of ICD insertion (cpt 02112) I have read, edited and approve of this report: Lalit Mcmahon MD [facility] Cardiac Electrophysiology 07/23/2022 4:22 PM Procedure Note Lalit Mcmahon MD - 07/23/2022 BIVENTRICULAR ICD IMPLANTATION Helper Maintenance Cleaning: Lalit Mcmahon MD Fellow: Fadi Nunez MD [...] appropriate lateralbranch of the CS in the [place] view. This branch was cannulated with a [...] in the entireprocedure. LEAD AND GENERATOR DATA: Local Company Truck Driver Model # Serial # Generator [employer] [id number] Atrial Lead [employer] 7841 [id number] RV Lead [employer] 0672 [id number] LV Lead [employer] 4674 978929 PACE/SENSE DATA: Sensed wave (mV) Threshold (V) [...] (cGycm2) 300 CONCLUSIONS: Successful implantation of a [employer] biventricular ICD forprimary prevention and treatment of symptoms related to congestive heartfailure. Follow up in EP clinic in 1-2 months. Procedures performed: new ICD system ( cpt 54908-D5); implant LV lead attime of ICD insertion (cpt 59579) I have read, edited and approve of this report: Lalit Mcmahon MD S Cardiac Electrophysiology 07/23/2022 4:22 PM Lalit Mcmahon MD EP PROCEDURE ORDERAB LES * POCT Glucose (07/23/2022 12:54 PM EDT) [facility] Signature Glucose, POC 83 65 - 199 mg/dL [facility] Comment: Supplemental ranges: <140 mg/dL before meals <180 mg/dL all other times of the day Blood 07/23/2022 12:5 4 PM EDT 07/23/2022 12:54 PM EDT Lalit Mcmahon MD POINT OF CARE TEST O RDERABLES Performing Organization Address City/[facility]/ZIP Co de Phone Number [facility] [place] [address] * EKG 12 Lead (07/23/2022 12:33 PM EDT) Ventricular rate 72 BPM MUSE SYSTEM Atrial Rate 72 BPM MUSE SYSTEM P-R Interval 158 ms MUSE SYSTEM QRS Duration 176 ms MUSE SYSTEM Q-T Interval 458 ms MUSE SYSTEM QTC Calculated (Bezet) 501 ms MUSE SYSTEM Calculated P [place] 34 degrees MUSE SYSTEM Calculated R [place] 12 degrees MUSE SYSTEM Calculated T [place] -173 degrees MUSE SYSTEM INTERPRETATION Normal sinus rhythm Left bundle branch block Abnormal ECG No previous ECGs available Confirmed by MD Salome, Lalit ([id number]) on 07/23/2022 1:19:03 PM MUSE SYSTEM 07/23/2022 12:3 3 PM EDT 07/23/2022 1:19 PM EDT Lalit Mcmahon MD ECG ORDERABLES Performing Organization Address [facility]/ZIP Co de Phone Number MUSE SYSTEM * Differential, Automated (07/23/2022 11:55 AM EDT) Neutrophil % 62.6 % [facility] Neutrophil Absolute 4.14 1.70 - 6.10 x10(3)/[facility] Lymph % 27.0 % [facility] Lymphocytes Abs 1.8 0.9 - 3.2 x10(3)/[facility] Monocyte % 7.3 % [facility] Monocyte Abs 0.5 0.3 - 0.9 x10(3)/[facility] Eos % 2.3 % [facility] Eosinophils Abs 0.2 0.0 - 0.4 x10(3)/[facility] Basophil % 0.6 % [facility] Baso Absolute 0.0 0.0 - 0.1 x10(3)/[facility] Immature Gran % 0.20 % [facility] Comment: Immature granulocytes(IG's)percentage and absolute count will include metamyelocytes, myelocytes, and promyelocytes. Blood smears from CBCs yielding IG's will be scanned manually for concordance. If this scan disagrees with the automated IG or if promyelocytes are noted, a manual differential will be performed. Immature Gran Absolute 0.01 0.00 - 0.04 x10(3)/[facility] Blood 07/23/2022 11:5 5 AM EDT 07/23/2022 12:07 PM EDT Narrative Resulting Agency Comment Spec In Lab Lalit Mcmahon MD HEMATOLOGY ORDERABLE S [facility] [place] [address] * Hemogram (07/23/2022 11:55 AM EDT) White Blood Cell 6.6 4.0 - 9.5 x10(3)/[facility] Red Blood Cell 4.50 4.00 - 5.21 x10(6)/[facility] Hemoglobin 13.7 11.7 - 15.5 g/dL [...] 193 145 - 357 x10(3)/[facility] RDW Standard Deviation 45.5 37.0 - 46.0 fL [facility] RDW coefficient of variation 13.2 11.5 - 14.1 % [facility] Mean Platelet Volume 9.5 7.6 - 12.9 fL [facility] NRBC% auto 0.0 % [facility] NRBC Absolute 0.000 0.000 - 0.000 x10(3)/[facility] Blood 07/23/2022 11:5 5 AM EDT 07/23/2022 12:07 PM EDT Narrative Resulting Agency Comment Spec In Lab Lalit Mcmahon MD HEMATOLOGY ORDERABLE S [facility] [place] [address] * (ABNORMAL) BMP w/fasting Glucose (07/23/2022 11:55 [...] of Diabetes Mellitus, Position Statement from the [place] [employer]. ??Diabetes Care, Volume 33, Supplement 1, Mar 2009 Blood Urea Nitrogen 23(H) 8 - 18 mg/dL [facility] Creatinine 1.07 0.70 - 1.20 mg/dL [facility] Sodium 141 135 - 145 [...] questions. Chloride 106 98 - 107 mmol/L [facility] Carbon Dioxide 26 22 - 31 mmol/L [facility] Anion Gap 9 5 - 15 mmol/L [facility] Calcium 9.7 8.5 - 10.5 mg/dL [facility] Est Glomerular Filtration Rate 55(L) >=60 mL/min/1. 73 m?? [facility] Comment: This patient's estimated GFR [...] Mcmahon MD CHEMISTRY ORDERABLES Performing Organization Address [facility] Co de Phone Number [facility] [place] [address] * Prothrombin Time (07/23/2022 11:55 AM EDT) [...] ORDERABLE S Performing Organization Address City/[facility] Co de Phone Number [facility] [place] [address] documented in this encounter Visit Diagnoses Diagnosis HFrEF (heart failure with reduced ejection fraction)- Primary Left bundle branch block Other left bundle branch block Nonischemic cardiomyopathy Other primary cardiomyopathies Cardiac resynchronization therapy defibrillator (SURGICAL SALES REPRESENTATIVE-D) in place Left bundle branch block Other [...] Routine documented in this encounter Care Teams Student Specialist Relationship Specialty Start Date End Date Lolly Oliveira MD [address] [place] [address] PCP - General 07/17/13 documented as of this encounter
--- OUTSIDE RECORDS SUMMARY | 2024-03-10 11:24 | XMS_ITS | Encounter Summary ---
Author Organization [facility] [place] [address] Care Team Providers Care Manager Medical Writing Name Role Phone Lolly Oliveira MD Primary Care Provider [phone] Encounter Details Date Type Department Care Team (Late st Contact Info) Description 11/16/2022 Telephone Cardiology at [address] [phone] Luna Rousseau, RN Social History Tobacco Use [...] BP today was 118/57 at CR at [facility]. Pt is going twice a week [...] Description 04/15/2024 10:[address] [facility] Hospital Encounter [place] [address] Arrived documented as of this encounter Visit Diagnoses Not on filedocumented in this encounter Care Teams Manager Medical Writing Relationship Specialty Start Date End Date Lolly Oliveira MD [address] [place] [address] PCP - General 07/17/13 documented as of this encounter
--- OUTSIDE RECORDS SUMMARY | 2024-03-10 11:24 | XMS_ITS | Encounter Summary ---
Author Organization [facility] [place] [address] Care Team Providers Care Arts Administrator Name Role Phone Lolly Oliveira MD Primary Care Provider [phone] Encounter Details Date Type Department Care Team (Latest Contact Info) Description 10/23/2022 10:00 AM EDT - 10/23/2022 11:59 PM EDT Hospital Encounter [place] [address] Discharge Disposition: Home Social History Tobacco Use [...] with spacer fluticasone propionate (Flonase) 50 mcg/actuation [place], Suspension 1 spray by Each Nare route [...] MEDICAL CENTER Hospital Encounter Non-[place], [place] [...] on filedocumented in this encounter Care Teams Arts Administrator Relationship Specialty Start Date End Date Lolly Oliveira MD [address] [place] [address] PCP - General 07/17/13 documented as of this encounter
--- OUTSIDE RECORDS SUMMARY | 2024-03-10 11:24 | XMS_ITS | Encounter Summary ---
Author Organization [facility] Address [address] [place] [address] Care Team Providers Care State Comptroller Name Role Phone Lolly Oliveira MD Primary Care Provider [phone] Encounter Details Date Type Department Care Team (Late st Contact Info) Description 06/16/2012 Results Only [facility] Laboratory Services - [facility] ([facility] [address] [place], [place] [id number] Lolly Oliveira MD [address] [place], [place] [id number] Social History Tobacco Use Types Packs/Day Years [...] ? JING ALVARENGA ? Accession #: ? [id number] : ? 1950 (Age: 61) ??F ?Collect [...] ORDERABLES Final Resu lt [facility] [address] [place] [address] documented in this encounter Visit Diagnoses Not on filedocumented in this encounter Care Teams State Comptroller Relationship Specialty Start Date End Date Lolly Oliveira MD [address] [place] [address] PCP - General 11/13/08 documented as of this encounter
--- OUTSIDE RECORDS SUMMARY | 2024-03-10 11:25 | XMS_ITS | Encounter Summary ---
[place] [address] Care Team Providers Care Hydrogen Braze Furnace Operator Name Role Phone Lolly Oliveira MD Primary Care Provider [phone] Encounter Details Date Type Department Care Team (Late st Contact Info) Description 07/17/2013 Orders [place] [phone] Lolly Oliveira MD [address] [place], [place] [id number] Social History Tobacco Use Types Packs/Day Years [...] AM EST Hospital Encounter Non-Invasive [place] [address] Arrived documented as of this encounter Procedures Procedure Name Priority Date/Time Associated Diagnosis Comments REQUEST FOR 2ND READ MAMMO Routine 07/17/2013 8:45 AM EDT documented in this encounter Results * Request for 2nd read Mammo (07/17/2013 8:45 AM EDT) Anatomical Region Laterality Modality Other 07/17/2013 8:45 AM EDT Narrative 07/17/2013 3:57 PM EDT INTERPRETATION OF OUTSIDE MAMMOGRAMS (PERFORMED ON 07/06/13 AND 07/14/13) FROM [facility] DATED 07/17/13: ?? DIAGNOSTIC IMAGING SUMMARY: [...] on filedocumented in this encounter Care Teams Hydrogen Braze Furnace Operator Relationship Specialty Start Date End Date Lolly Oliveira MD [address] [place] [address] PCP - General 07/17/13 documented as of this encounter
--- OUTSIDE RECORDS SUMMARY | 2024-03-10 11:25 | XMS_ITS | Encounter Summary ---
Author Organization Formerly [facility] [place] [address] Care Team Providers Care Fish Smoker Name Role Phone Unavailable Primary Care Provider Unavailabl e Encounter Details Date Type Department Care Team (Late st Contact Info) Description 07/04/2012 [place] [address] Eleno Christian MD Social History Tobacco Use [...] Hospital Encounter Non-[place] [address] Arrived documented as of this encounter Procedures [...]
--- OUTSIDE RECORDS SUMMARY | 2024-03-10 11:25 | XMS_ITS | Encounter Summary ---
Author Organization Formerly [facility] [place] [address] Care Team Providers Care Timber Watchman Name Role Phone Lolly Oliveira MD Primary Care Provider [phone] Reason for Visit * Reason Comments Psoriasis Encounter Details Date Type Department Care Team (Late st Contact Info) Description 04/09/2022 1:45 PM EST Office Visit Dermatology at [address] [address] Clay Ramírez MD [address] [facility] [place] [address] Psoriasis, guttate Social History Tobacco Use Types [...] AM EST Hospital Encounter Non[place] [address] Arrived documented as of this encounter Visit Diagnoses Diagnosis Psoriasis, guttate Other psoriasis documented in this encounter Care Teams Timber Watchman Relationship Specialty Start Date End Date Lolly Oliveira MD [address] [place] [address] PCP - General 07/17/13 documented as of this encounter
--- OUTSIDE RECORDS SUMMARY | 2024-03-10 11:25 | XMS_ITS | Encounter Summary ---
Author Organization [facility] [place] [address] Care Team Providers Care Bursar Name Role Phone Lolly Oliveira MD Primary Care Provider [phone] Encounter Details Date Type Department Care Team (Latest Contact Info) Description 07/26/2013 9:45 AM EDT - 07/26/2013 11:59 PM EDT Hospital En[place] [address] Mammographic microcalcification Social History Tobacco Use Types [...] AM EST Hospital Encounter [place] [address] Arrived documented as of this encounter Procedures [...] microcalcification documented in this encounter Care Teams Bursar Relationship Specialty Start Date End Date Lolly Oliveira MD [address] [place] [address] PCP - General 07/17/13 documented as of this encounter
--- OUTSIDE RECORDS SUMMARY | 2024-03-10 11:25 | XMS_ITS | Encounter Summary ---
Author Organization Formerly [facility] [place] [address] Care Team Providers Care School Psychology Specialist Name Role Phone Lolly Oliveira MD Primary Care Provider [phone] Reason for Visit * Reason Comments Follow-up Encounter Details Date Type Department Care Team (Late st Contact Info) Description 07/02/2022 8:00 AM EDT Office Visit Dermatology at [address] [phone] Clay Ramírez MD [address] [facility] [place] [address] Psoriasis, guttate Social History Tobacco Use Types [...] [facility] Hospital Encounter Non-[place] [address] Arrived documented as of this encounter Visit Diagnoses Diagnosis Psoriasis, guttate Other psoriasis documented in this encounter Care Teams School Psychology Specialist Relationship Specialty Start Date End Date Lolly Oliveira MD [address] [place] [address] PCP - General 07/17/13 documented as of this encounter
--- OUTSIDE RECORDS SUMMARY | 2024-03-10 11:25 | XMS_ITS | Encounter Summary ---
Author Organization Formerly [facility] [place] [address] Care Team Providers Care Needle Control Cheniller Name Role Phone Lolly Oliveira MD Primary Care Provider [phone] Encounter Details Date Type Department Care Team (Late st Contact Info) Description 07/26/2013 [place] [address] Eleno Christian MD Social History [...] st Contact Info) Description 04/15/2024 10:00 AM [facility] Hospital Encounter Non-[place] [address] Arrived documented as of this encounter Visit Diagnoses Not on filedocumented in this encounter Care Teams Needle Control Cheniller Relationship Specialty Start Date End Date Lolly Oliveira MD [address] [place] [address] PCP - General 07/17/13 documented as of this encounter
--- OUTSIDE RECORDS SUMMARY | 2024-03-10 11:25 | XMS_ITS | Encounter Summary ---
Author Organization [facility] [place] [address] Care Team Providers Care Orthophotography Technician Name Role Phone Lolly Oliveira MD Primary Care Provider Encounter Details Date Type Department Care Team (Latest Contact Info) Description 07/26/2013 9:44 AM EDT - 07/26/2013 11:59 PM EDT Hospital En[place] [address] CLINIC, Lolly So MD [address] [place], [place] [id number] Mammographic microcalcification Discharge Disposition: Home Social History [...] AM EST Hospital Encounter Non-Invasive [place] [address] Arrived documented as of this encounter Procedures [...] are present on specimen digital X-ray. A Media Lantern-Stereo 13 Cylinder marker clip was placed. Cranio-caudal [...] mLs documented in this encounter Care Teams Orthophotography Technician Relationship Specialty Start Date End Date Lolly Oliveira MD [address] [place] [address] PCP - General 07/17/13 documented as of this encounter
--- OUTSIDE RECORDS SUMMARY | 2024-03-10 11:25 | XMS_ITS | Encounter Summary ---
Author Organization [facility] Address [facility] [place] [address] Care Team Providers Care Mural Painter Name Role Phone Lolly Oliveira MD Primary Care Provider [phone] Encounter Details Date Type Department Care Team (Late st Contact Info) Description 07/16/2022 Telephone Cardiology at [address] [phone] Lalit Mcmahon MD [facility] [place] [address] Social History Tobacco Use Types Packs/Day Years [...] her nonischemic cardiomyopathy. She is scheduled for MANAGER PROPERTY-D implantation next week and looks forward to the procedure. We will see each other next week. Lalit Mcmahon MD [facility] Cardiac Electrophysiology 07/16/2022 8:52 AM documented in this encounter Plan of Treatment Upcoming Encounters Date Type Department Care Team (Late st Contact Info) Description 04/15/2024 10:00 AM EST Hospital Encounter [place] [address] Arrived documented as of this encounter Visit Diagnoses Not on filedocumented in this encounter Care Teams Mural Painter Relationship Specialty Start Date End Date Lolly Oliveira MD [address] [place] [address] PCP - General 07/17/13 documented as of this encounter
--- OUTSIDE RECORDS SUMMARY | 2024-03-10 11:25 | XMS_ITS | Encounter Summary ---
[place] [address] Care Team Providers Care Opal Miner Name Role Phone Lolly Oliveira MD Primary Care Provider [phone] Encounter Details Date Type Department Care Team [...] Hospital Encounter Non-Invasive [place] [address] Arrived documented as of this encounter Visit Diagnoses Not on filedocumented in this encounter Care Teams Opal Miner Relationship Specialty Start Date End Date Lolly Oliveira MD [address] [place] [address] PCP - General 07/17/13 documented as of this encounter
--- OUTSIDE RECORDS SUMMARY | 2024-03-10 11:25 | XMS_ITS | Encounter Summary ---
Author Organization [facility] Address [facility] [place] [address] Care Team Providers Care Resident Director Name Role Phone Lolly Oliveira MD Primary Care Provider [phone] Reason for Visit * Auth/Cert (Routine) Specialty Diagnoses / Procedures Referred By Contac t Referred To Contact Diagnoses Left bundle-branch block, unspecified Other cardiomyopathies Left bundle branch block [I44.7]Nonischemic cardiomyopathy [I42.8] Procedures PRG CATH PLMT LEFT HEART CATH & ARTS W/INJ & ANGIO IMG S&I ELECTROPHYSIOLOGY PROCEDURE Lalit Mcmahon MD [facility] [place] [address] [facility] Referral ID Status Reason Start Date Expiration Date Visits Re quested Visits Authorized [id number] 1 1 Encounter Details Date Type Department Care Team (Late st Contact Info) Description 07/23/2022 1:08 PM EDT Anesthesia Event [place] [address] Monae Gonzalez MD [facility] [place] [address] Maria Elena Snyder CRNA [facility] [place] [address] Anesthesia Record Procedure Summary Procedure Name Responsible [...] 1307; median cubital vein (antecubital fossa), right; mzui-cji-wnjrna catheter system; Anatomical Landmarks; 20 gauge; 07/24/22; [...] 1343; metacarpal vein (top of hand), left; beij-lzt-rcopvq catheter system; Anatomical Landmarks; US Not Used; [...] [facility] A-LAB ROOM 3 / [facility] EP LABS Anesthesia Start: 1308 Anesthesia Stop: 1633 Procedure: ELECTROPHYSIOLOGY PROCEDURE (Left) Diagnosis: Left bundle branch block Nonischemic cardiomyopathy (Left bundle branch block [I44.7]Nonischemic cardiomyopathy [I42.8]) Providers: Lalit Mcmahon MD Responsible Provider: Monae Gonzalez MD Anesthesia Type: general ASA Status: 4 All Anesthesia Providers: Anesthesiologist: Monae Gonzalez MD; Dominique Sen MD LINING CEMENTER: Maria Elena nSyder CRNA Vitals Value Taken Time BP 131/46 07/23/22 1700 Temp 36.7 ??C (98.1 ??F) 07/23/22 1627 Pulse 67 07/23/22 1703 Resp 14 07/23/22 1703 SpO2 98 % 07/23/22 1703 Pain Level Vitals shown include unvalidated device data. Patient Location: PACU/[facility] Level of Consciousness: Conscious but Sleepy [...] and Nonischemic CM (EF 15-20%)who presents for DIRECTOR INFORMATION-D. No prior anesthetic records. Pt states that [...] daughter/son and patient who. Plan discussed with LINING CEMENTER. Anesthesia Screening documented in this encounter Plan of Treatment Upcoming Encounters Date Type Department Care Team (Late st Contact Info) Description 04/15/2024 10:00 AM [facility] Hospital Encounter [place] [address] Arrived documented as of this [...] mg documented in this encounter Care Teams Resident Director Relationship Specialty Start Date End Date Lolly Oliveira MD [address] [place] [address] PCP - General 07/17/13 documented as of this encounter
--- OUTSIDE RECORDS SUMMARY | 2024-03-10 11:25 | XMS_ITS | Encounter Summary ---
Author [place] [address] Care Team Providers Care Crate Builder Name Role Phone Lolly Oliveira MD Primary Care Provider [phone] Encounter Details Date Type Department Care Team [...] AM EST Hospital Encounter Non-[place] [address] Arrived documented as of this encounter Visit Diagnoses Not on filedocumented in this encounter Care Teams Crate Builder Relationship Specialty Start Date End Date Lolly Oliveira MD [address] [place] [address] PCP - General 07/17/13 documented as of this encounter
--- OUTSIDE RECORDS SUMMARY | 2024-03-10 11:25 | XMS_ITS | Encounter Summary ---
[place] [address] Care Team Providers Care Veterans Rehabilitation Counselor Name Role Phone Lolly Oliveira MD Primary Care Provider [phone] Encounter Details Date Type Department Care Team [...] AM EST Hospital Encounter Non-[place] [address] Arrived documented as of this encounter Visit Diagnoses Not on filedocumented in this encounter Care Teams Veterans Rehabilitation Counselor Relationship Specialty Start Date End Date Lolly Oliveira MD [address] [place] [address] PCP - General 07/17/13 documented as of this encounter
--- OUTSIDE RECORDS SUMMARY | 2024-03-10 11:25 | XMS_ITS | Encounter Summary ---
Author Organization [facility] [place] [address] Care Team Providers Care Adult Care Provider Name Role Phone Lolly Oliveira MD Primary Care Provider [phone] Reason for Referral * Diagnostic Test (Routine) - Closed Specialty Diagnoses / Procedures Referred By Contac t Referred To Contact Radiology Diagnoses Left bundle branch block Nonischemic cardiomyopathy Procedures MRI Cardiac Morphology Function With Flow Velocity Quantification [facility] Contrast MRI Cardiac Morphology Function wwo Contrast Lalit Mcmahon MD [facility] [address] [place] [address] Referral ID Status Reason Start Date Expiration Date V isits Requested Visits Authorized [id number] Closed Specialty Service Requested 05/06/2022 11/07/2023 2 1 Reason for Visit * Diagnostic Test (Routine) - Closed Specialty Diagnoses / Procedures Referred By Contac t Referred To Contact Radiology Diagnoses Left bundle branch block Nonischemic cardiomyopathy Procedures MRI Cardiac Morphology Function With Flow Velocity Quantification o Contrast MRI Cardiac Morphology Function wwo Contrast Lalit Mcmahon MD [facility] [address] [place] [address] Referral ID Status Reason Start Date Expiration Date V isits Requested Visits Authorized [id number] Closed Specialty Service Requested 05/06/2022 11/07/2023 2 1 Encounter Details Date Type Department Care Team (Latest Contact Info) Description 07/14/2022 9:08 AM EDT Hospital Encounter MRI at [facility] [place] [address] Lalit Mcmahon MD [facility] [place] [address] Left bundle branch block; Nonischemic cardiomyopathy Discharge [...] with spacer fluticasone propionate (Flonase) 50 mcg/actuation [place], Suspension 1 spray by Each Nare route [...] y.o. : 1950 [address] [facility] [address] Female [phone] (home) No relevant phone numbers on file. Lolly Oliveira MD None Allergies Allergen Reactions ??? Sulfa (Sulfonamide Antibiotics) Date/Time of call: July 07, 2022/11:03 AM/ PREVIOUS MRI SCAN? HEIGHT: WEIGHT: SCHEDULED SCAN: MRI CARDIAC MORPHOLOGY FUNCTION WITH FLOW VELOCITY QUANTIFICATION WWO CONTRAST [[id number]] Order Questions Answers Where will study be performed? [facility] Radiology [120] SUBJECTIVE: Very Claustrophobic CAN [...] ( KV ) You must have a medical van driver present when you check in. This patient has been informed that they require a medical van driver to drive them home after this procedure. In the absence of a medical van driver, IR will not be able to sedate for your scan. Pt verbalized understanding of these instructions during the pre-procedure education via phone. Yes Name of medical van driver: Daughter Phone number: PRIOR SCAN DATE/S SEDATION TYPE SUCCESSFUL 07/14/22 MRI Cardiac Morphology Function with Flow Velocity Quantification wwo Contrast Ativan 1mg x 1 dose Pass Revised 08/03/17 documented in this encounter Plan of Treatment Upcoming Encounters Date Type Department Care Team (Late st Contact Info) Description 04/15/2024 10:00 AM [facility] Hospital Encounter Non[place] [address] Arrived documented as of this encounter Procedures [...] who have questions please contact the health dog day care attendant that requested your imaging first. ? Electronically signed by: Greyson Herron MD, [facility] ([phone]), at 07/15/2022 9:53 AM Narrative 07/15/2022 9:53 [...] patients who have questions please contactthe health dog day care attendant that requested your imaging first. Lalit Mcmahon [...] mg documented in this encounter Care Teams Adult Care Provider Relationship Specialty Start Date End Date Lolly Oliveira MD [address] [place] [address] PCP - General 07/17/13 documented as of this encounter
--- OUTSIDE RECORDS SUMMARY | 2024-03-10 11:25 | XMS_ITS | Encounter Summary ---
Author Organization [facility]ly [facility] [place] [address] Care Team Providers Care Demi Chef Name Role Phone Lolly Oliveira MD Primary Care Provider [phone] Encounter Details Date Type Department Care Team (Latest Contact Info) Description 07/17/2013 8:40 AM EDT - 07/17/2013 11:59 PM EDT Hospital Encounter XRay at [address] [place] [address] CLINIC, DR [facility] Discharge Disposition: Home Social [...] AM EST Hospital Encounter [place] [address] Arrived documented as of this encounter Visit Diagnoses Not on filedocumented in this encounter Care Teams Demi Chef Relationship Specialty Start Date End Date Lolly Oliveira MD [address] [place] [address] PCP - General 07/17/13 documented as of this encounter
--- OUTSIDE RECORDS SUMMARY | 2024-03-10 11:25 | XMS_ITS | Encounter Summary ---
[place] [address] Care Team Providers Care Mechanical Tech Name Role Phone Lolly Oliveira MD Primary Care Provider [phone] Encounter Details Date Type Department Care Team (Latest Contact Info) Description 07/26/2013 9:45 AM EDT - 07/26/2013 11:59 PM EDT Hospital [place] [address] Mammographic microcalcification Social History Tobacco Use Types [...] AM EST Hospital Encounter Non-[place] [address] Arrived documented as of this encounter Procedures [...] Name: ?? JING MOTT ? Acc #: ?[id number] ?Pt. ? Col Date: ?? 07/26/2013 ? [...] Name: ?? JING MOTT ? Acc #: ?[id number] ?Pt. ? Col Date: ?? 07/26/2013 ? [...] Organization Address City/State/[facility] Co tn Phone Number [facility] [place] [address] * Mammo Specimen Imaging During Biopsy (07/26/2013 [...] microcalcification documented in this encounter Care Teams Mechanical Tech Relationship Specialty Start Date End Date Lolly Oliveira MD [address] [place] [address] PCP - General 07/17/13 documented as of this encounter
--- OUTSIDE RECORDS SUMMARY | 2024-03-10 11:25 | XMS_ITS | Encounter Summary ---
Author Organization [facility] [place] [address] Care Team Providers Care Ward Nurse Name Role Phone Unavailable Primary Care Provider Unavailabl e Encounter Details Date Type Department Care Team (Late st Contact Info) Description 07/14/2013 External Results XRay at [address] [place] [address] Provider, Scanning Social History Tobacco Use Types [...] AM EST Hospital Encounter Non-Invasive Cardiology Lab [facility] [place] [address] Arrived documented as of this encounter Procedures [...]
--- OUTSIDE RECORDS SUMMARY | 2024-03-10 11:25 | XMS_ITS | Encounter Summary ---
[place] [address] Care Team Providers Care Foreclosure Paralegal Name Role Phone Lolly Oliveira MD Primary Care Provider [phone] Encounter Details Date Type Department Care Team [...] AM EST Hospital Encounter Non-[place] [address] Arrived documented as of this encounter Visit Diagnoses Not on filedocumented in this encounter Care Teams Foreclosure Paralegal Relationship Specialty Start Date End Date Lolly Oliveira MD [address] [place] [address] PCP - General 07/17/13 documented as of this encounter
--- OUTSIDE RECORDS SUMMARY | 2024-03-10 11:25 | XMS_ITS | Encounter Summary ---
Author Organization [facility] [place] [address] Care Team Providers Care Senior Chemical Process Engineer Name Role Phone Lolly Oliveira MD Primary Care Provider [phone] Reason for Visit * Reason Comments Follow-up Encounter Details Date Type Department Care Team (Late st Contact Info) Description 05/21/2022 8:00 AM EDT Office Visit Dermatology at [address] [phone] Clay Ramírez MD [address] [facility] [place] [address] Psoriasis, guttate Social History Tobacco Use Types [...] [facility] Encounter Non-Invasive [place] [address] Arrived documented as of this encounter Visit Diagnoses Diagnosis Psoriasis, guttate Other psoriasis documented in this encounter Care Teams Senior Chemical Process Engineer Relationship Specialty Start Date End Date Lolly Oliveira MD [address] [place] [address] PCP - General 07/17/13 documented as of this encounter
--- OUTSIDE RECORDS SUMMARY | 2024-03-10 11:25 | XMS_ITS | Encounter Summary ---
Author Organization [facility] [place] [address] Care Team Providers Care Aluminum Polisher Name Role Phone Lolly Oliveira MD Primary Care Provider [phone] Reason for Referral * Diagnostic Test (Routine) - Closed Specialty Diagnoses / Procedures Referred By Contac t Referred To Contact Radiology Diagnoses Left bundle branch block Nonischemic cardiomyopathy Procedures MRI Cardiac Morphology Function With Flow Velocity Quantification wwo Contrast MRI Cardiac Morphology Function wwo Contrast Lalit Mcmahon MD [facility] [place] [address] [place] [address] Referral ID Status Reason Start Date Expiration Date V isits Requested Visits Authorized [id number] Closed Specialty Service Requested 05/06/2022 11/07/2023 2 1 Encounter Details Date Type Department Care Team (Late st Contact Info) Description 05/06/2022 Orders Only Cardiology at [address] [address] Lalit Mcmahon MD [facility] [place] [address] Left bundle branch block; Nonischemic cardiomyopathy Social [...] AM EST Hospital Encounter Non-[place] [address] Arrived documented as of this encounter Results [...] questions please contact the health animal care service worker that requested your imaging first. ? [...] have questions please contactthe health animal care service worker that requested your imaging first. Lalit Mcmahon MD IMG MRI ORDERABLES documented in this encounter Visit Diagnoses Diagnosis Left bundle branch block Other left bundle branch block Nonischemic cardiomyopathy Other primary cardiomyopathies Left bundle branch block Other left bundle branch block Nonischemic cardiomyopathy Other primary cardiomyopathies documented in this encounter Care Teams Aluminum Polisher Relationship Specialty Start Date End Date Lolly Oliveira MD [address] [place] [address] PCP - General 07/17/13 documented as of this encounter
--- OUTSIDE RECORDS SUMMARY | 2024-03-10 11:25 | XMS_ITS | Encounter Summary ---
Author Organization [facility] [place] [address] Care Team Providers Care Director Of Regional Sales Name Role Phone Lolly Oliveira MD Primary Care Provider [phone] Reason for Visit * Reason Comments Skin Check Encounter Details Date Type Department Care Team (Late st Contact Info) Description 11/23/2014 10:00 AM EDT Office Visit Dermatology at [address] [address] Clay Ramírez MD [address] [facility] [place] [address] Dermatofibroma; Nevus; Solar lentigo Discharge Disposition: Home [...] [facility] Hospital Encounter Non[place] [address] Arrived documented as of this encounter Visit Diagnoses Diagnosis Dermatofibroma Benign neoplasm of skin, site unspecified Nevus Benign neoplasm of skin, site unspecified Solar lentigo Other dyschromia documented in this encounter Care Teams Director Of Regional Sales Relationship Specialty Start Date End Date Lolly Oliveira MD [address] [place] [address] PCP - General 07/17/13 documented as of this encounter
--- OUTSIDE RECORDS SUMMARY | 2024-03-10 11:25 | XMS_ITS | Encounter Summary ---
Author Organization Formerly [facility] [place] [address] Care Team Providers Care Adult Daycare Coordinator Name Role Phone Lolly Oliveira MD Primary Care Provider Encounter Details Date Type Department Care Team (Latest Contact Info) Description 07/18/2013 Orders [place] [phone] Alia Fraire MD Mammographic microcalcification (Primary Dx) [...] Contact Info) Description 04/15/2024 10:00 AM [facility] Hospital Encounter [place] [phone] Arrived documented as of this encounter Results [...] are present on specimen digital X-ray. A [employer] Eviva-Stereo 13 Cylinder marker clip was [...] calcifications are present on specimendigital X-ray. A [employer] Eviva-Stereo 13 Cylinder marker clip was [...] does not layer and, therefore, are not fundraising sale representative of milk of calcium. Again, these [...] does not layer and, therefore, are not fundraising sale representative of milk of calcium. Again, these have an amorphous andpunctate appearance and remain indeterminate. Stereotactic guided biopsy isrecommended. Alia Fraire MD IMG MAMMO ORDERABLES documented in this encounter Visit Diagnoses Diagnosis Mammographic microcalcification- Primary Mammographic microcalcification Mammographic microcalcification Mammographic microcalcification Mammographic microcalcification documented in this encounter Care Teams Adult Daycare Coordinator Relationship Specialty Start Date End Date Lolly Oliveira MD [address] [place] [address] PCP - General 07/17/13 documented as of this encounter
--- OUTSIDE RECORDS SUMMARY | 2024-03-10 11:25 | XMS_ITS | Encounter Summary ---
Author Organization [facility] [place] [address] Care Team Providers Care Naphthol Soaping Machine Operator Name Role Phone Lolly Oliveira MD Primary Care Provider [phone] Encounter Details Date Type Department Care Team (Latest Contact Info) Description 07/20/2013 9:26 AM EDT - 07/20/2013 11:59 PM EDT Hospital [place] [phone] CLINIC, Lolly So MD [address] [place], [place] [id number] Mammographic microcalcification Discharge Disposition: Home Social History [...] AM EST Hospital Encounter Non-[place] [address] Arrived documented as of this encounter Procedures [...] does not layer and, therefore, are not parts representative of milk of calcium. Again, these [...] does not layer and, therefore, are not parts representative of milk of calcium. Again, these have an amorphous andpunctate appearance and remain indeterminate. Stereotactic guided biopsy isrecommended. Alia Fraire MD IMG MAMMO ORDERABLES documented in this encounter Visit Diagnoses Diagnosis Mammographic microcalcification documented in this encounter Care Teams Naphthol Soaping Machine Operator Relationship Specialty Start Date End Date Lolly Oliveira MD [address] [place] [address] PCP - General 07/17/13 documented as of this encounter
--- OUTSIDE RECORDS SUMMARY | 2024-03-10 11:25 | XMS_ITS | Encounter Summary ---
Author Organization [facility] [place] [address] Care Team Providers Care Video Production Intern Name Role Phone Lolly Oliveira MD Primary Care Provider [phone] Encounter Details Date Type Department Care Team (Late st Contact Info) Description 10/09/2021 Telephone Dermatology at [address] [address] Nora Meredith LPN Social [...] [facility] Hospital Encounter Non-[place]vasive [place] [address] Arrived documented as of this encounter Visit Diagnoses Not on filedocumented in this encounter Care Teams Video Production Intern Relationship Specialty Start Date End Date Lolly Oliveira MD [address] [place] [address] PCP - General 07/17/13 documented as of this encounter
--- OUTSIDE RECORDS SUMMARY | 2024-03-10 11:25 | XMS_ITS | Encounter Summary ---
[place] [address] Care Team Providers Care Lamp Decorator Name Role Phone Lolly Oliveira MD Primary Care Provider [phone] Encounter Details Date Type Department Care Team (Late st Contact Info) Description 04/09/2022 Refill Dermatology at [address] [address] Nora Meredith, ACQUISITION PROFESSIONAL Social History Tobacco Use Types Packs/Day Years [...] [facility] Hospital Encounter Non-Invasive [place] [address] Arrived documented as of this encounter Visit Diagnoses Not on filedocumented in this encounter Care Teams Lamp Decorator Relationship Specialty Start Date End Date Lolly Oliveira MD [address] [place] [address] PCP - General 07/17/13 documented as of this encounter
--- OUTSIDE RECORDS SUMMARY | 2024-03-10 11:25 | XMS_ITS | Encounter Summary ---
Author Organization [facility] [place] [address] Care Team Providers Care Rougher Merchant Mill Name Role Phone Lolly Oliveira MD Primary Care Provider [phone] Encounter Details Date Type Department Care Team (Late Contact Info) Description 01/14/2022 Telephone Dermatology at [address] [address] Nora Meredith LPN Social [...] AM EST Hospital Encounter Non[place] [address] Arrived documented as of this encounter Visit Diagnoses Not on filedocumented in this encounter Care Teams Rougher Merchant Mill Relationship Specialty Start Date End Date Lolly Oliveira MD [address] [place] [address] PCP - General 07/17/13 documented as of this encounter
--- OUTSIDE RECORDS SUMMARY | 2024-03-10 11:25 | XMS_ITS | Encounter Summary ---
Author Organization [facility] [place] [address] Care Team Providers Care Collection Card Clerk Name Role Phone Lolly Oliveira MD Primary Care Provider [phone] Reason for Visit * Reason Comments Follow-up Encounter Details Date Type Department Care Team (Late st Contact Info) Description 06/06/2021 8:45 AM EDT Office Visit Dermatology at [address] [address] Clay Ramírez MD [address] [facility], [place] [address] Psoriasis, guttate Social History Tobacco Use Types [...] EST Hospital Encounter Non-Invasive [place] [address] Arrived documented as of this encounter Visit Diagnoses Diagnosis Psoriasis, guttate Other psoriasis documented in this encounter Care Teams Collection Card Clerk Relationship Specialty Start Date End Date Lolly Oliveira MD [address] [place] [address] PCP - General 07/17/13 documented as of this encounter
--- OUTSIDE RECORDS SUMMARY | 2024-03-10 11:25 | XMS_ITS | Encounter Summary ---
Author Organization [facility] [place] [address] Care Team Providers Care Precision Jig Grinder Name Role Phone Lolly Oliveira MD Primary Care Provider [phone] Reason for Referral * Consultation (Routine) - Closed Specialty Diagnoses / Procedures Referred By Contact Referred To Contact Electrophysiology / Cardiology Diagnoses Left bundle branch block Cardiomyopathy, unspecified type AT MINIMUM PT NEEDS CONSIDERATION FOR DEFIBRILLATOR, ALSO CANDIDATE FOR RESYNCHRONIZATION THERAPY HER QRS IS >0.16 Lolly Oliveira MD [address] [place] [address] [facility] Cardiology [address] [place] [phone] Referral ID Status Reason Start Date Expiration Date V isits Requested Visits Authorized [id number] Closed Consult, Test & Treat PCP Updated and/or Approved 04/30/2022 04/30/2023 6 6 Encounter Details Date Type Department Care Team (Latest Contact Info) Description 04/30/2022 Transcribe Orders eDH Incoming Referrals [phone] Lolly Oliveira MD [address] [place], [place] [id number] Left bundle branch block; Cardiomyopathy, unspecified type [...] Hospital Encounter Non-[place] [address] Arrived Scheduled Referrals Name Type Priority Associated Diagnoses Orde r Schedule Referral to Cardiology Outpatient Referral Routine Left bundle branch block Cardiomyopathy, Unspecified Type Ordered: 04/30/2022 documented as of this encounter Visit Diagnoses Diagnosis Left bundle branch block Other left bundle branch block Cardiomyopathy, unspecified type documented in this encounter Care Teams Precision Jig Grinder Relationship Specialty Start Date End Date Lolly Oliveira MD [address] [place] [address] PCP - General 07/17/13 documented as of this encounter
--- OUTSIDE RECORDS SUMMARY | 2024-03-10 11:25 | XMS_ITS | Encounter Summary ---
Author Organization [facility] [place] [address] Care Team Providers Care Auto Headlight Mechanic Name Role Phone Unavailable Primary Care Provider Unavailabl e Encounter Details Date Type Department Care Team (Late st Contact Info) Description 07/14/2013 [place] [phone] Eleno Christian MD Social History Tobacco Use [...] AM EST Hospital Encounter Non-[place] [address] Arrived documented as of this encounter Visit Diagnoses Not on filedocumented in this encounter
--- OUTSIDE RECORDS SUMMARY | 2024-03-10 11:25 | XMS_ITS | Encounter Summary ---
Author Organization [place] [address] Care Team Providers Care Branch Billing Payroll Clerk Name Role Phone Lolly Oliveira MD Primary Care Provider [phone] Encounter Details Date Type Department Care Team (Late st Contact Info) Description 06/29/2011 [place] [address] Eleno Christian MD Social History Tobacco Use [...] [facility] Encounter Non-[place] [address] Arrived documented as of this encounter Procedures [...] on filedocumented in this encounter Care Teams Branch Billing Payroll Clerk Relationship Specialty Start Date End Date Lolly Oliveira MD [address] [place] [address] PCP - General 07/17/13 documented as of this encounter
--- OUTSIDE RECORDS SUMMARY | 2024-03-10 11:25 | XMS_ITS | Encounter Summary ---
Author Organization [facility] [place] [address] Care Team Providers Care Director Media Name Role Phone Lolly Oliveira MD Primary Care Provider [phone] Encounter Details Date Type Department Care Team (Late st Contact Info) Description 04/01/2021 3:30 PM EST Office Visit Dermatology at [address] [phone] Clay Ramírez MD [address] [place] [address] Psoriasis, guttate Social History Tobacco Use Types [...] AM EST Hospital Encounter Non-Invasive [place] [address] Arrived documented as of this encounter Visit Diagnoses Diagnosis Psoriasis, guttate Other psoriasis documented in this encounter Care Teams Director Media Relationship Specialty Start Date End Date Lolly Oliveira MD [address] [place] [address] PCP - General 07/17/13 documented as of this encounter
--- OUTSIDE RECORDS SUMMARY | 2024-03-10 11:25 | XMS_ITS | Encounter Summary ---
Author Organization [facility] [place] [address] Care Team Providers Care Audiovisual Lead Technician Name Role Phone Lolly Oliveira MD Primary Care Provider [phone] Reason for Visit * Diagnostic Test (Routine) - Closed Specialty Diagnoses / Procedures Referred By Contac t Referred To Contact Radiology Diagnoses Left bundle branch block Nonischemic cardiomyopathy Procedures MRI Cardiac Morphology Function With Flow Velocity Quantification wwo Contrast MRI Cardiac Morphology Function wwo Contrast Lalit Mcmahon MD [place] [address] [facility] [place] [address] Referral ID Status Reason Start Date Expiration Date V isits Requested Visits Authorized [id number] Closed Specialty Service Requested 05/06/2022 11/07/2023 2 1 Encounter Details Date Type Department Care Team (Latest Contact Info) Description 07/14/2022 9:09 AM EDT - 07/14/2022 11:59 PM EDT Hospital [place] [address] Lalit Mcmahon MD [facility] [place] [address] Discharge Disposition: Home Social History Tobacco Use [...] with spacer fluticasone propionate (Flonase) 50 mcg/actuation [place], Suspension 1 spray by Each Nare route [...] AM EST Hospital Encounter Non-[place] [address] Arrived documented as of [...] mLs documented in this encounter Care Teams Audiovisual Lead Technician Relationship Specialty Start Date End Date Lolly Oliveira MD [address] [place] [address] PCP - General 07/17/13 documented as of this encounter
--- OUTSIDE RECORDS SUMMARY | 2024-03-10 11:25 | XMS_ITS | Encounter Summary ---
Author Organization [facility] [place] [address] Care Team Providers Care Certified Credit Counselor Name Role Phone Lolly Oliveira MD Primary Care Provider [phone] Reason for Visit * Reason Onset Date Comments Pre Procedure Call 07/01/2022 Encounter Details Date Type Department Care Team (Late st Contact Info) Description 07/01/2022 Telephone Cardiology at [address] [phone] Rosenda Sutton RN Pre Procedure Call Social History Tobacco Use Types Packs/Day Years Used Date Smoking Tobacco: Never Sex and Gender Information Value Date Recorded Sex Assigned at Not on file Gender Identity Not on file Sexual Orientation Not on file documented as of this encounter Miscellaneous Notes * Telephone Encounter - Rosenda Sutton RN - 07/01/2022 9:30 AM EDTSummary: Pre Procedure Call: LIVESTOCK FARMWORKER implant EP OUTSOLE SCHEDULER COORDINATION CHECKLIST Patient Name: Luna Mott Patient Performing Extracorporeal Technician: Lalit Mcmahon Referring Provider: Lolly Oliveira Date of Procedure: 07/23/22 Arrival Time/ Case Time: 12:00 pm / 1:00 pm Check In Location: Rope Cleaner Desk 4W Date Patient was Called: 07/01/22 Procedure: LIVESTOCK FARMWORKER Company: [employer] Type: LIVESTOCK FARMWORKER-D Laterality: LEFT Orders: Yes Lab Orders: Yes [...] overnight , understands that they will need city route driver on day of discharge Notified pt that Goff catheter may be placed on day of procedure depending on type & duration of case. documented in this encounter Plan of Treatment Upcoming Encounters Date Type Department Care Team (Late st Contact Info) Description 04/15/2024 10:00 AM [facility] Hospital Encounter Non-[place] [address] Arrived documented as of this encounter Visit Diagnoses Not on filedocumented in this encounter Care Teams Certified Credit Counselor Relationship Specialty Start Date End Date Lolly Oliveira MD [address] [place] [address] PCP - General 07/17/13 documented as of this encounter
[2024-03-10 13:28] VITALS: BP 149/75; PULSE 67
[2024-03-22 10:53] VITALS: BP 148/74; PULSE 73
--- OUTSIDE RECORDS SUMMARY | 2024-03-22 10:54 | XMS_ITS | Encounter Summary ---
Author Organization [facility] Address [facility] [place] [address] Care Team Providers Care Vehicle Trimmer Name Role Phone Lolly Oliveira MD Primary Care Provider [phone] Encounter Details Date Type Department Care Team (Late st Contact Info) Description 03/15/2023 Orders Only Cardiology at [address] [phone] Lalit Mcmahon MD [facility] [place] [address] Nonischemic cardiomyopathy; Biventricular ICD (implantable cardioverter-defibrill ator) [...] Hospital Encounter Non-[place] [address] Arrived documented as of this encounter Visit Diagnoses Diagnosis Nonischemic cardiomyopathy Other primary cardiomyopathies Biventricular ICD (implantable cardioverter-defibrillator) in place documented in this encounter Care Teams Vehicle Trimmer Relationship Specialty Start Date End Date Lolly Oliveira MD [address] [place] [address] PCP - General 07/17/13 documented as of this encounter
--- OUTSIDE RECORDS SUMMARY | 2024-03-22 10:54 | XMS_ITS | Encounter Summary ---
Author Organization [facility] Address [address] [place] [address] Care Team Providers Care Senior Account Executive Name Role Phone Lolly Oliveira MD Primary Care Provider [phone] Encounter Details Date Type Department Care Team (Late st Contact Info) Description 03/06/2003 Results Only [facility] conversion [address] [place] [address] Lolly Oliveira MD [address] [place], [place] [id number] Social History Tobacco Use Types Packs/Day Years [...] ORDERABLES Final Resu lt [facility] [address] [place] [address] documented in this encounter Visit Diagnoses Not on filedocumented in this encounter Care Teams Senior Account Executive Relationship Specialty Start Date End Date Lolly Oliveira MD [address] [place] [address] PCP - General 11/13/08 documented as of this encounter
--- OUTSIDE RECORDS SUMMARY | 2024-03-22 10:54 | XMS_ITS | Encounter Summary ---
Author Organization [facility] [place] [address] Care Team Providers Care Hotel Night Auditor Name Role Phone Lolly Oliveira MD Primary Care Provider Reason for Visit * Reason Onset Date Comments Post Procedure Call 07/30/2022 Encounter Details Date Type Department Care Team (Late st Contact Info) Description 07/30/2022 Notes Only Cardiology at [address] [phone] Rosenda Sutton, RN Post Procedure Call Social [...] 07/30/2022 9:59 AM EDTSummary: Post Procedure Call: LAUNDRY PRESS OPERATOR implant EP RN Post-Procedure Note: Date [...] Note: Follow-up Recommendations for Providers: - s/p LAUNDRY PRESS OPERATOR-D implant - post implant QRS 130 [...] [place] Hospital Encounter Non-Invasive [place] [address] Arrived documented as of this encounter Visit Diagnoses Not on filedocumented in this encounter Care Teams Hotel Night Auditor Relationship Specialty Start Date End Date Lolly Oliveira MD [address] [place] [address] PCP - General 07/17/13 documented as of this encounter
--- OUTSIDE RECORDS SUMMARY | 2024-03-22 10:54 | XMS_ITS | Encounter Summary ---
Author Organization [facility] [place] [address] Care Team Providers Care Supervisor Tile And Mottle Name Role Phone Lolly Oliveira MD Primary Care Provider Reason for Visit * Reason Comments Follow-up 8 weeks UVB treatmen t twice weekly Encounter Details Date Type Department Care Team (Late st Contact Info) Description 07/19/2023 11:00 AM EDT Office Visit Dermatology at [address] [phone] Clay Ramírez MD [address], ERIKA A DERMATOLOGY [place], [place] [phone] Psoriasis Social History Tobacco Use Types Packs/Day [...] st Contact Info) Description 04/15/2024 10:00 AM [facility] Hospital Encounter Non-Invasive [place] [address] Arrived documented as of this encounter Visit Diagnoses Diagnosis Psoriasis Other psoriasis documented in this encounter Care Teams Supervisor Tile And Mottle Relationship Specialty Start Date End Date Lolly Oliveira MD [address] [place] [address] PCP - General 07/17/13 documented as of this encounter
--- OUTSIDE RECORDS SUMMARY | 2024-03-22 10:54 | XMS_ITS | Data Portability ---
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 You Are In A Car? Yes- Usually Information not available 05/21/2023 How Often During The Past Four Weeks Have You Been Bothered By Any Of The Following Problems? Falling Or Dizzy When Standing Up? Never nnerltsg51 Information not available 05/21/2023 Sexual Problems? Never [email or web address] Informat ion not available 05/21/2023 Trouble Eating Well? Sometimes ldantjjx23 Information not available 05/21/2023 Teeth Or Denture Problems? Sometimes umlwqcig43 Information not available 05/21/2023 Problems Using The Telephone? Never huydsuqk05 Information not available 05/21/2023 Tiredness Or Fatigue? Sometimes ghlzbeqa35 Information not available 05/21/2023 Have You Had 2 Or More Falls Or Sustained An Injury With A Fall In The Last Year? No Information no t available 05/21/2023 Do You Have Difficulty With Walking Or Balance? No [email or web address] Information not available 05/21/2023 Do You Currently Use A Hearing Device? No [email or web address] Information not available 05/21/2023 Do You Currently Have Any Trouble With Your Vision? Yes [email or web address] Information no t available 05/21/2023 Do You Exercise For About 20 Minutes Three Or More Days A Week? Yes- Most Of The Time ovpqvkox48 Information not available 05/21/2023 Are There Any Safety Concerns In Your Home (see Attached [facility] Pamphlet)? No [email or web address] Information not available 05/21/2023 How Often Do You Have Trouble Taking Medicines The Way You Have Been Told To Take Them? I Always Take Them As Prescribed [email or web address] Information not available 05/21/2023 How Confident Are You That You Can Control And Manage Most Of Your Health Problems? Very Confident [email or web address] Information not available 05/21/2023 Do You Currently Have Any Difficulty With Your Hearing? No Information not available 05/21/2023 Date Of Most Recent SBINS 05/21/2023 [email or web address] Information not available 05/21/2023 What Was The Date Of Your Most Recent Tobacco Screening? 09/01/2023 Information not available 09/01/2023 Has Tobacco Cessation Counseling Been Provided? Yes Information not available 09/01/2023 On What Date Was Tobacco Cessation Counseling Provided? 09/01/2023 Information not available 09/01/2023 Do You Or Have You Ever Used Any Other Forms Of Tobacco Or Nicotine? No [email or web address] Information not available 05/21/2023 Sex: Female Functional Status None recorded. Mental Status None recorded. Family History Relationship Description Onset Age of this Age Resolved Age Notes LastModified by Organization Details LastModified Time Sister Family history of Hypertension [email or web address] Not available 12/2022 03:57:11 Sister Family history of breast cancer [email or web address].70 Not available 2022 03:57:12 Brother Family history [...] preservative free, adsorbed 9 completed Not Available [facility] 01/15/2023 04:53:39 Tdap 8 completed Not Available [facility] 01/15/2023 04:53:39 zoster live 3 completed Not Available [facility] 01/15/2023 04:53:40 Pneumococcal conjugate PCV 13 6 completed Not Available [facility] 01/15/2023 04:53:40 Influenza, high-dose, trivalent, PF 8 completed Not Available [facility] 01/15/2023 04:53:41 Td(adult) unspecified formulation 3 completed Not Available [facility] 01/15/2023 04:53:41 Influenza, split virus, trivalent, preservative 6 completed Not Available [facility] 01/15/2023 04:53:41 Influenza, split virus, trivalent, preservative 5 completed Not Available [facility] 01/15/2023 04:53:41 Influenza, split virus, quadrivalent, PF 9 completed Not Available [facility] 01/15/2023 04:53:41 zoster recombinant 9 completed Not Available [facility] 01/15/2023 04:53:42 zoster recombinant 8 completed Not Available [facility] 01/15/2023 04:53:42 Influenza, high-dose, quadrivalent, PF 1 completed Not Available [facility] 01/15/2023 04:53:43 Influenza, high-dose, quadrivalent, PF 0 completed Not Available [facility] 01/15/2023 04:53:43 Influenza, high-dose, quadrivalent, PF 2 completed Not Available [facility] 01/15/2023 04:53:43 COVID-19, mRNA, LNP-S, PF, 100 mcg/0.5mL dose or 50 mcg/0.25mL dose 2 completed Not Available [facility] 01/15/2023 04:53:43 COVID-19 vaccine, vector-nr, rS-Ad26, PF, 0.5 mL 1 completed Not Available [facility] 01/15/2023 04:53:44 SARS-COV-2 (COVID-19) vaccine, UNSPECIFIED 1 completed Not Available [facility] 01/15/2023 04:53:44 SARS-COV-2 (COVID-19) vaccine, UNSPECIFIED 1 completed Not Available [facility] 01/15/2023 04:53:44 pneumococcal polysaccharide PPV23 5 completed Not Available [facility] 01/15/2023 04:53:45 Hep B, unspecified formulation 4 completed Not Available [facility] 01/15/2023 04:53:45 Hep B, unspecified formulation 3 completed Not Available [facility] 01/15/2023 04:53:46 Hep B, unspecified formulation 3 completed Not Available [facility] 01/15/2023 04:53:46 influenza, unspecified formulation 0 completed Not Available [facility] 01/15/2023 04:53:47 influenza, unspecified formulation 3 completed Not Available [facility] 01/15/2023 04:53:47 influenza, unspecified formulation 9 completed Not Available [facility] 01/15/2023 04:53:47 influenza, unspecified formulation 1 completed Not Available [facility] 01/15/2023 04:53:47 influenza, unspecified formulation 7 completed Not Available [facility] 01/15/2023 04:53:48 influenza, unspecified formulation 4 completed Not Available [facility] 01/15/2023 04:53:48 influenza, unspecified formulation 8 completed Not Available [facility] 01/15/2023 04:53:48 influenza, unspecified formulation 2 completed Not Available [facility] 01/15/2023 04:53:48 Influenza, high-dose, quadrivalent, PF 3 completed Not Available [facility] 03/19/2023 05:33:03 COVID-19, mRNA, LNP-S, PF, herminio-sucrose, 30 mcg/0.3 mL 3 completed Not Available [facility] 03/19/2023 05:33:03 COVID-19, mRNA, LNP-S, bivalent, PF, 50 mcg/0.5 mL or 25mcg/0.25 mL dose 4 completed DENYS Bauer, [facility] 12/20/2023 15:23:33 Respiratory syncytial virus (RSV) vaccine, unspecified 4 completed DENYS Bauer, [facility] 12/20/2023 15:24:29 influenza, unspecified formulation 4 completed DENYS Bauer, [facility] 12/20/2023 15:25:14 Past Encounters Encounter ID Performer Location Encounter Start Date Encounter Closed Date Diagnosis/Indication Diagnosis SNOMED-CT Code Diagnosis ICD10 Code Diagnosis Note [id number] LOLLY CORTEZ MD [facility] [address] [place] [address] 05/21/2023 10:03:54 05/21/2023 11:37:49 Onychomycosis 465860569 B35.1 There is bothering her more, more difficult to trim her toenails. She also has a callus that she would like looked with podiatry. Asthma 858529751 J45.90 9 Rare use of albuterol, she will continue the same Cardiomyopathy 68215022 I10 Clinically remaining stable, has had significan t improvemen t with cardiomyop athy, most recent echo showed normal EF. She is very happy about that. She continues on Jardiance, lisinopril , metoprolol . She has been taking furosemide 20 mg daily along with potassium. My question is if she now has normal cardiac function can that be discontinu ed. Will message her cardiologi st regarding this. Down the line she may also not need the Jardiance. Blood pressure remaining well-contr olled. Disorder of hip joint 42 3810505 M12.859 Doing well status post now bilateral total hip replacemen ts. 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 She is working on exercises in addition to walking. Mammo will be due in the fall. Up-to-date with colonoscop y. [id number] [address],[facility] [address] [place] [address] 09/01/2023 10:23:16 09/01/2023 13:28:10 Vertigo 435536765 R42 Patient has been experienci ng vertigo since Wednesday seems to be most notable in the morning and fatigues through the day. It is reproducib le with head movement to the right. It does fatigue with rest. She has been doing the maneuver at home which was helpful but has become less helpful. On exam her bilateral TMs were occluded right greater than left by cerumen and ear lavage was performed and on reevaluati on, shows complete resolution without signs of infection. I did consider that this could be central versus peripheral process. She has a very normal neurologic exam. I am less likely concern for peripheral process especially given that she has had this in the past and that has been fatigable since onset a few days ago. She has had good luck with physical therapy in the past. I am going to send referral for this. It may be possible that after removing the cerumen from her ear she may have resolution . She will follow-up with physical therapy as needed. If symptoms continue I have also sent prescripti on for meclizine 25 mg which she is instructed she can take up to 3 times a day and I have given her 3-day supply. She is educated that if she does not need this medication she should not take it because it can cause some drowsiness and can cause some urinary retention. I would like her to use it sparingly. I do not expect she should have any significan t sudden worsening of symptoms. If so she will seek reevaluati on. Impacted c erumen of bilateral ears [id number] 885989 H61.23 Ear lavage performed with complete resolution and no signs of infection. [id number] LOLLY CORTEZ MD [address] [address] 11/26/2023 07:26:08 11/26/2023 08:10:59 Screening mammography 41116301 Z12.31 Adjustment disorder 1722 6007 F43.20 , Still grieving the loss of her about a year and a half ago. She still finds it hard being in the house alone. Her kids and grandkids have been with a good visiting regularly which she appreciate s. Asthma 170787481 J45.90 9 Rare use of albuterol, she will continue the same Essential hypertension 32003672 I10 Under reasonably good control, see cardiomyop athy below Guttate psoriasis 312787 00 L40.4 , Following dermatolog y. Will be starting photothera py in addition to the clobetasol once the colder weather arrives. Has been just trying to get some sun exposure on her skin over the summer. Currently psoriasis is not too bad Cardiomyopathy 91281757 I10 Clinically remaining stable, has had significan t improvemen t with cardiomyop athy, most recent echo showed normal EF. She is very happy about that. She continues on Jardiance, lisinopril , metoprolol . She has been taking furosemide 20 mg daily along with potassium. She did try backing off on the Lasix but found that she did develop some edema without it. She currently is okay continuing to take it. Up-to-date with [facility]. Creatinine remains a little elevated as is BUN, although these have improved. Encouraged increased fluid intake Hyperlipidemia 34244116 E78.5 on rosuvastat in, lipids well-contr olled, normal LFTs Prediabetes 286794983 R7 3.03 And obesity. A1c 5.9, This is up from 5.5 in September. She is aware of a low-carb diet, knows what to eat she feels, just requires the motivation to decrease her portions especially with her evening meal. She does not snack, does not did not after dinner. She has been increasing her exercise, plans to continue doing that. She has met with [facility]. Health Concerns Section Related Observation LastModified by Organization Detai ls LastModified Time None Recorded Concern Status LastModified by Organization Details LastModified Time None Recorded Advance Directives Directive None Recorded Payers Encounter Date Sequence Insurance Name Policy Number Policy Lema Covered Member ID Lema Member ID Guarantor Name 05/21/2023 1 [place] - [place]PO) [id number] Luna Barber LunaLorena [id number] Luna Lunaslin 09/01/2023 1 [place]) [id number] Luna Lunaslin [id number] Luna Lunaslin 11/26/2023 1 [place] - [place]) [id number] Luna Lunaslin [id number] Luna Mott Notes Date Note Type Note Provider Name and Address Organization Details Recorded Time 05/21/2023 text/html Thais here today for an annual wellness exam LOLLY CORTEZ MD [address], [place], [address], [facility]. 05/24/2023 18:32:35 09/01/2023 text/html Luna is [...] it. JESSICA INGRAM PA-C [address], [place], [address], [facility]. 09/01/2023 13:55:07 11/26/2023 text/html Thais here today for follow-up of cardiomyopathy, obesity LOLLY CORTEZ MD [address], [place], [address], [facility]. 11/28/2023 09:26:44 OBGyn Episode No OBEpisode recorded.
--- OUTSIDE RECORDS SUMMARY | 2024-03-22 10:54 | XMS_ITS | Clinical Summary ---
Author Organization [facility] Address [address] [place] [address] Care Team Providers Care Bark Spudder Name Role Phone Lolly Oliveira MD Primary Care Provider [phone] Social History Tobacco Use Types Packs/Day Years [...] 08/10/2023 COVID-19 Vaccine (2023- season) 2023 Insurance [facility] MEDICARE Care Teams Bark Spudder Relationship Specialty Start Date End Date Berrian, Lolly, MD [address] [place] [address] PCP - General 11/13/08
--- OUTSIDE RECORDS SUMMARY | 2024-03-22 10:54 | XMS_ITS | Encounter Summary ---
Author Organization [facility] Address [address] [place] [address] Care Team Providers Care Assembler Sandal Parts Name Role Phone Lolly Oliveira MD Primary Care Provider [phone] Encounter Details Date Type Department Care Team (Late st Contact Info) Description 04/01/2005 Results Only [facility] conversion [address] [place] [address] Blair Dukes MD [address] [place] [id number] Social History Tobacco Use Types Packs/Day Years [...] ? JING ALVARENGA ? Accession #: ? [id number] ? : ? 1950 (Age: 54) ??F [...] ? Received in [place]e' s fixative labelled [place] and #1 ??terminal ileum bx is a single 0.3 x 0.2 x 0.2 cm tissue, submitted intact as (A). Received in [place]e' s fixative labelled [place] and #2 ??transverse colon bx is a single 0.2 x 0.2 x 0.2 cm tissue, submitted intact as (B). ??(Dr. Lechuga)/[facility] End of Report [facility] 04/01/2005 04/02/2005 15: 24 EST us Blair Dukes MD PATHOLOGY ORDERABLES Final Resul t [facility] [address] [place] [address] documented in this encounter Visit Diagnoses Not on filedocumented in this encounter Care Teams Assembler Sandal Parts Relationship Specialty Start Date End Date Lolly Oliveira MD [address] [place] [address] PCP - General 11/13/08 documented as of this encounter
--- OUTSIDE RECORDS SUMMARY | 2024-03-22 10:54 | XMS_ITS | Encounter Summary ---
Author Organization [facility] [place] [address] Care Team Providers Care Tank Farm Gauger Name Role Phone Lolly Oliveira MD Primary Care Provider [phone] Encounter Details Date Type Department Care Team (Late st Contact Info) Description 03/17/2023 Telephone Cardiology at [address] [phone] Saranya Ma Social History Tobacco Use Types Packs/Day Years Used Date Smoking Tobacco: Never Alcohol Use Standard Drinks/Week Comments Not Currently 0 (1 standard drink = 0.6 oz pur e alcohol) [facility] Inpatient Questions Answer Date Recorded Does Anyone [...] [facility] at [phone]. No Prior auth needed. Ref #:[id number]. Saranya Ma Sr. Clinical Procedure [place]/Dairy Truck Driver documented in this encounter Plan of Treatment Upcoming Encounters Date Type Department Care Team (Late st Contact Info) Description 04/15/2024 10:00 AM [facility] Hospital Encounter Non-Invasive [place] [address] Arrived documented as of this encounter Visit Diagnoses Not on filedocumented in this encounter Care Teams Tank Farm Gauger Relationship Specialty Start Date End Date Lolly Oliveira MD [address] [place] [address] PCP - General 07/17/13 documented as of this encounter
--- OUTSIDE RECORDS SUMMARY | 2024-03-22 10:54 | XMS_ITS | Encounter Summary ---
Author Organization [facility] [place] [address] Care Team Providers Care Carpenter Inspector Name Role Phone Lolly Oliveira MD Primary Care Provider [phone] Encounter Details Date Type Department Care Team (Latest Contact Info) Description 07/20/2023 10:00 AM EDT - 07/20/2023 11:59 PM EDT Hospital Encounter [place] [phone] Discharge Disposition: Home Social History Tobacco Use [...] with spacer fluticasone propionate (Flonase) 50 mcg/actuation [place], Suspension 1 spray by Each Nare route daily as needed. documented as of this encounter Plan of Treatment Upcoming Encounters Date Type Department Care Team (Late st Contact Info) Description 04/15/2024 10:00 AM EST Hospital Encounter [place] [address] Arrived documented as of this encounter Procedures [...] on filedocumented in this encounter Care Teams Carpenter Inspector Relationship Specialty Start Date End Date Lolly Oliveira MD [address] [place] [address] PCP - General 07/17/13 documented as of this encounter
--- OUTSIDE RECORDS SUMMARY | 2024-03-22 10:54 | XMS_ITS | Encounter Summary ---
Author Organization [place] [address] Care Team Providers Care Minute Clerk For Basic Traffic Name Role Phone Lolly Oliveira MD Primary Care Provider [phone] Encounter Details Date Type Department Care Team (Latest Contact Info) Description 10/18/2023 10:00 AM EDT - 10/18/2023 11:59 PM EDT Hospital Encounter [place] [address] Discharge Disposition: Home Social History Tobacco Use [...] with spacer fluticasone propionate (Flonase) 50 mcg/actuation [place], Suspension 1 spray by Each Nare route daily as needed. documented as of this encounter Plan of Treatment Upcoming Encounters Date Type Department Care Team (Late st Contact Info) Description 04/15/2024 10:00 AM EST Hospital Encounter [place] [address] Arrived documented as of this encounter Procedures [...] on filedocumented in this encounter Care Teams Minute Clerk For Basic Traffic Relationship Specialty Start Date End Date Lolly Oliveira MD [address] [place] [address] PCP - General 07/17/13 documented as of this encounter
--- OUTSIDE RECORDS SUMMARY | 2024-03-22 10:54 | XMS_ITS | Encounter Summary ---
Author Organization [facility] Address [address] [place] [address] Care Team Providers Care Stripping And Booking Machine Operator Name Role Phone Lolly Oliveira MD Primary Care Provider [phone] Encounter Details Date Type Department Care Team (Late st Contact Info) Description 04/12/2007 Results Only [facility] conversion [address] [place] [address] Lolly Oliveira MD [address] [place], [place] [id number] Social History Tobacco Use Types Packs/Day Years [...] ? JING ALVARENGA ? Accession #: ? [id number] : ? 1950 (Age: 56) ??F ?Collect Date: ? 04/12/2007 Location: ? [facility] ? Receive Date: ? 04/13/2007 Provider: ?LOLLY OLIVEIRA MD Copy to: ? Specimen/Source: ?ThinPrep Pap Test, Cervix/Endocervix, processed on [employer] ThinPrep Imaging System, with manual evaluation Last [...] ORDERABLES Final Resu lt [facility] [address] [place] [address] documented in this encounter Visit Diagnoses Not on filedocumented in this encounter Care Teams Stripping And Booking Machine Operator Relationship Specialty Start Date End Date Lolly Oliveira MD [address] [place] [address] PCP - General 11/13/08 documented as of this encounter
--- OUTSIDE RECORDS SUMMARY | 2024-03-22 10:54 | XMS_ITS | Encounter Summary ---
Author Organization [facility] [place] [address] Care Team Providers Care Tariff Clerk Name Role Phone Lolly Oliveira MD Primary Care Provider [phone] Encounter Details Date Type Department Care Team (Latest Contact Info) Description 01/16/2024 10:00 AM EST - 01/16/2024 11:59 PM EST Hospital Encounter [place] [phone] Discharge Disposition: Home Social History Tobacco Use Types Packs/Day Years Used Date Smoking Tobacco: Never Alcohol Use Standard Drinks/Week Comments Not Currently 0 (1 standard drink = 0.6 oz pur e alcohol) [facility] Inpatient Questions Answer Date Recorded Does [...] with spacer fluticasone propionate (Flonase) 50 mcg/actuation [place], Suspension 1 spray by Each Nare route daily as needed. documented as of this encounter Plan of Treatment Upcoming Encounters Date Type Department Care Team (Late st Contact Info) Description 04/15/2024 10:00 AM EST Hospital Encounter [place] [phone] Arrived documented as of this encounter Procedures [...] on filedocumented in this encounter Care Teams Tariff Clerk Relationship Specialty Start Date End Date Lolly Oliveira MD [address] [place] [address] PCP - General 07/17/13 documented as of this encounter
--- OUTSIDE RECORDS SUMMARY | 2024-03-22 10:54 | XMS_ITS | Encounter Summary ---
Author Organization [facility] Address [address] [place] [address] Care Team Providers Care Electronics Lead Name Role Phone Lolly Oliveira MD Primary Care Provider [phone] Encounter Details Date Type Department Care Team (Late st Contact Info) Description 04/17/2005 Results Only [facility] conversion [address] [place] [address] Lolly Oliveira MD [address] [place], [place] [id number] Social History Tobacco Use Types Packs/Day Years [...] ? JING ALVARENGA ? Accession #: ? [id number] : ? 1950 (Age: 54) ??F ?Collect Date: ? 04/17/2005 Location: ? [facility] ? Receive Date: ? 04/21/2005 Provider: ?LOLLY OLIVEIRA MD Copy to: ? Specimen/Source: ?ThinPrep Pap Test, Cervix/Endocervix, processed on [employer] ThinPrep Imaging System, with manual evaluation Last [...] Final Resu lt [facility] [address] [place] [address] documented in this encounter Visit Diagnoses Not on filedocumented in this encounter Care Teams Electronics Lead Relationship Specialty Start Date End Date Lolly Oliveira MD [address] [place] [address] PCP - General 11/13/08 documented as of this encounter
--- OUTSIDE RECORDS SUMMARY | 2024-03-22 10:54 | XMS_ITS | Encounter Summary ---
Author Organization [facility] Address [address] [place] [address] Care Team Providers Care Electrical Engineering Intern Name Role Phone Lolly Oliveira MD Primary Care Provider [phone] Encounter Details Date Type Department Care Team (Late st Contact Info) Description 05/27/2021 Lab Requisition [facility] Pathology & Laboratory Medicine - [address] [address] Iman Moran, DO [address] [place], [place] [id number] Encounter for other general examination Social History [...] explore management options, if applicable. 05/30/2021 13:31 [facility] Final Diagnosis A. COLON, POLYP AT 90 CM, BIOPSY/POLYPECTOM Y: - Tubular adenoma. 05/30/2021 13:31 [facility] Attestation By the signature below, the attending physician certifies that they have 1) personally conducted a gross and/or microscopic examination of the described specimen(s), and/or personally interpreted the results of laboratory testing of the described specimen(s), and 2) personally rendered or confirmed the above diagnosis. 05/30/2021 13:31 [facility] at 1331 Clinical History Severe diverticula and polypectomy x1 05/30/2021 13:31 [facility] Gross Description A. Received in formalin labelled with proper patient identification (initials J, K) and colon polyp x1 at 90 cm is a light pineda polypoid tissue measuring 0.2 x 0.2 x 0.2 cm. Submitted intact in A1. MICKEY CARLOS(ASCP) 05/27/2021 19:11 05/30/2021 13:31 [facility] Performing Lab [facility] 05/30/2021 13:31 [facility] Scanned Images 05/30/2021 13:31 [facility] Tissue ENTIRE COLON / Unknown 05/27/2021 11:23 EDT 05/27/2021 16:33 EDT us Iman Moran DO PATHOLOGY ORDERABLES Final Re sult [facility] [address] [place] [address] documented in this encounter Visit Diagnoses Diagnosis Encounter for other general examination documented in this encounter Care Teams Electrical Engineering Intern Relationship Specialty Start Date End Date Lolly Oliveira MD [address] [place] [address] PCP - General 11/13/08 documented as of this encounter
--- OUTSIDE RECORDS SUMMARY | 2024-03-22 10:54 | XMS_ITS | Encounter Summary ---
Author Organization [facility] Address [address] [place] [address] Care Team Providers Care Regional Safety Manager Name Role Phone Lolly Oliveira MD Primary Care Provider [phone] Encounter Details Date Type Department Care Team (Late st Contact Info) Description 04/25/2009 Orders Only [facility] Laboratory Services - [facility] ([facility]) [address] [place], [place] [phone] Lolly Oliveira MD [address] [place], [place] [id number] Social History Tobacco Use Types Packs/Day Years [...] ? JING ALVARENGA ? Accession #: ? [id number] ? : ? 1950 (Age: 58) ??F [...] ORDERABLES Final Resu lt Performing Organization Address [facility]/State/ZIP Co de Phone Number [facility] [address] [place] [address] documented in this encounter Visit Diagnoses Not on filedocumented in this encounter Care Teams Regional Safety Manager Relationship Specialty Start Date End Date Lolly Oliveira MD [address] [place] [address] PCP - General 11/13/08 documented as of this encounter
--- OUTSIDE RECORDS SUMMARY | 2024-03-22 10:54 | XMS_ITS | Encounter Summary ---
Author Organization [facility] [place] [address] Care Team Providers Care Customer Service Teller Name Role Phone Lolly Oliveira MD Primary Care Provider [phone] Encounter Details Date Type Department Care Team [...] AM EST Hospital Encounter Non-Invasive [place] [address] Arrived documented as of this encounter Visit Diagnoses Not on filedocumented in this encounter Care Teams Customer Service Teller Relationship Specialty Start Date End Date Lolly Oliveira MD [address] [place] [address] PCP - General 07/17/13 documented as of this encounter
--- OUTSIDE RECORDS SUMMARY | 2024-03-22 10:54 | XMS_ITS | Encounter Summary ---
Author Organization [facility] [address] Care Team Providers Care Skills Auditor Name Role Phone Lolly Oliveira MD Primary Care Provider [phone] Encounter Details Date Type Department Care Team (Latest Contact Info) Description 10/23/2022 10:00 AM EDT - 10/23/2022 11:59 PM EDT Hospital Encounter Non-Invasive [place] [address] Discharge Disposition: Home Social History Tobacco Use [...] st Contact Info) Description 04/15/2024 10:00 AM [facility] Hospital Encounter Non-[place] [address] Arrived documented as of this [...] on filedocumented in this encounter Care Teams Skills Auditor Relationship Specialty Start Date End Date Lolly Oliveira MD [address] [place] [address] PCP - General 07/17/13 documented as of this encounter
--- OUTSIDE RECORDS SUMMARY | 2024-03-22 10:54 | XMS_ITS | Encounter Summary ---
Author Organization [facility] Address [address] [place] [address] Care Team Providers Care Light Cleaner Name Role Phone Unavailable Primary Care Provider Unavailabl e Encounter Details Date Type Department Care Team (Late st Contact Info) Description 11/07/2008 Orders Only [facility] Laboratory Services - [facility] ([facility]) [address] [place] [address] Kenneth Parker MD [address] [place] [address] Social History Tobacco Use Types Packs/Day Years [...] ? JING ALVARENGA ? Accession #: ? [id number] ? : ? 1950 (Age: 58) ??F [...] ORDERABLES Final Resu lt [facility] [address] [place] [address] documented in this encounter Visit Diagnoses Not on filedocumented in this encounter
--- OUTSIDE RECORDS SUMMARY | 2024-03-22 10:54 | XMS_ITS | Encounter Summary ---
Author Organization [facility] [place] [address] Care Team Providers Care Surgical Instrument Maker Name Role Phone Lolly Oliveira MD Primary Care Provider [phone] Encounter Details Date Type Department Care Team (Late st Contact Info) Description 11/16/2022 Telephone Cardiology at [address] [phone] Luna Rousseau, RN Social History Tobacco Use [...] BP today was 118/57 at [facility] at [facility]. Pt is going twice a [...] [facility]ENTER Hospital Encounter Non[place] [address] Arrived documented as of this encounter Visit Diagnoses Not on filedocumented in this encounter Care Teams Surgical Instrument Maker Relationship Specialty Start Date End Date Lolly Oliveira MD [address] [place] [address] PCP - General 07/17/13 documented as of this encounter
--- OUTSIDE RECORDS SUMMARY | 2024-03-22 10:54 | XMS_ITS | Encounter Summary ---
Author Organization [facility] Address [address] [place] [address] Care Team Providers Care Head Of Cytogenetics Name Role Phone Lolly Oliveira MD Primary Care Provider [phone] Encounter Details Date Type Department Care Team (Late st Contact Info) Description 03/21/2019 Lab Requisition [facility] Pathology & Laboratory Medicine - [address] [address] Unknown, Provider, Social History Tobacco Use Types [...] 211 - 911 pg/mL 03/22/2019 11:52 EST [facility] Blood VENOUS BLOOD / Unknown 03/16/2019 9:25 EST 03/21/2019 21:35 EST us Provider Unknown CHEMISTRY & BLOOD GAS ORDERA BLES Final Result [facility] [address] [place] [address] documented in this encounter Visit Diagnoses Not on filedocumented in this encounter Care Teams Head Of Cytogenetics Relationship Specialty Start Date End Date Lolly Oliveira MD [address] [place] [address] PCP - General 11/13/08 documented as of this encounter
--- OUTSIDE RECORDS SUMMARY | 2024-03-22 10:54 | XMS_ITS | Encounter Summary ---
Author Organization [facility] Address [address] [place] [address] Care Team Providers Care Rail Switchman Name Role Phone Lolly Oliveira MD Primary Care Provider [phone] Encounter Details Date Type Department Care Team (Late st Contact Info) Description 02/20/2020 Lab Requisition [facility] Pathology & Laboratory Medicine - [address] [phone] Outr Resulting Lab, Provider Social History Tobacco [...] in accordance with CLIA regulations, College of [place] (CAP) guidelines (May 25, 2019), and FDA guidance (May 06, 2019). This test is only for use under the Food and Drug Administration's Emergency Use Authorization. Swab ENTIRE NASOPHARYNX / Unknown 02/19/2020 16:30 EST 02/20/2020 16:09 EST us Provider Outr Resulting Lab MICROBIOLOGY - GENER AL ORDERABLES Final Result [facility] [place], [place] * COVID-19 TESTING (02/19/2020 16:30 EST) COVID-19 rt-PCR Result NEGATIVE Negative 02/22/2020 23:41 EST [facility] Comment: 2019-novel Coronavirus (2019-nCoV) not detected [...] in accordance with CLIA regulations, College of [place] Pathologists (CAP) guidelines (May 25, 2019), and FDA guidance (May 06, 2019). This test is only for use under the Food and Drug Administration's Emergency Use Authorization. Performing Lab [facility] 02/22/2020 23:41 EST [facility] Swab 02/19/2020 16:3 0 EST 02/20/2020 16:09 EST us Provider Outr Resulting Lab MICROBIOLOGY - GENER AL ORDERABLES Final Result [facility] [address] [place] [address] [facility] [place], [place] documented in this encounter Visit Diagnoses Not on filedocumented in this encounter Care Teams Rail Switchman Relationship Specialty Start Date End Date Lolly Oliveira MD [address] [place] [address] PCP - General 11/13/08 documented as of this encounter
--- OUTSIDE RECORDS SUMMARY | 2024-03-22 10:54 | XMS_ITS | Encounter Summary ---
Author Organization [facility] [place] [address] Care Team Providers Care Motors Assembler Name Role Phone Lolly Oliveira MD Primary Care Provider [phone] Encounter Details Date Type Department Care Team (Latest Contact Info) Description 01/21/2023 10:00 AM EST - 01/21/2023 11:59 PM EST Hospital Encounter [place] [phone] Discharge Disposition: Home Social History Tobacco Use [...] with spacer fluticasone propionate (Flonase) 50 mcg/actuation [place], Suspension 1 spray by Each Nare route [...] AM EST Hospital Encounter [place] [address] Arrived documented as of this [...] on filedocumented in this encounter Care Teams Motors Assembler Relationship Specialty Start Date End Date Lolly Oliveira MD [address] [place] [address] PCP - General 07/17/13 documented as of this encounter
--- OUTSIDE RECORDS SUMMARY | 2024-03-22 10:54 | XMS_ITS | Encounter Summary ---
Author Organization [facility] [place] [address] Care Team Providers Care Log Brander Name Role Phone Lolly Oliveria MD Primary Care Provider Encounter Details Date Type Department Care Team (Late st Contact Info) Description 03/15/2023 Telephone Cardiology at [address] [phone] Saranya Ma Social History Tobacco Use Types [...] [facility] on [facility]12[facility]23. Message sent to Dr. Mcmahon asking him to put order in if he would like her to have this done. Saranya Ma Sr. Clinical Procedure [place]/Artist Color Separation documented in this encounter Plan of Treatment Upcoming Encounters Date Type Department Care Team (Late st Contact Info) Description 04/15/2024 10:00 AM EST Hospital Encounter Non-[place]vasive [place] [address] Arrived documented as of this encounter Visit Diagnoses Not on filedocumented in this encounter Care Teams Log Brander Relationship Specialty Start Date End Date Lolly Oliveira MD [address] [place] [address] PCP - General 07/17/13 documented as of this encounter
--- OUTSIDE RECORDS SUMMARY | 2024-03-22 10:54 | XMS_ITS | Encounter Summary ---
Author Organization [facility] Address [address] [place] [address] Care Team Providers Care Shipping Technician Name Role Phone Lolly Oliveira MD Primary Care Provider [phone] Encounter Details Date Type Department Care Team (Late st Contact Info) Description 11/13/2020 Lab Requisition [facility] Pathology & Laboratory Medicine - [address] [address] Outr Resulting Lab, Provider Social History Tobacco [...] [facility] [address] [place] [address] * COVID-19 TESTING (11/13/2020 7:30 EDT) COVID-19 [...] performed using the med SARS-CoV-2 assay ([employer] on the Med 6800 System Performing Lab Med [address] [facility] Lab 11/14/2020 11:46 EDT [facility] Swab 11/13/2020 7:30 EDT 11/13/2020 20:57 EDT us Provider Outr Resulting Lab MICROBIOLOGY - GENER AL ORDERABLES Final Result Performing Organization Address [facility] Co de Phone Number [facility] [address] [place] [address] documented in this encounter Visit Diagnoses Not on filedocumented in this encounter Care Teams Shipping Technician Relationship Specialty Start Date End Date Lolly Oliveira MD [address] [place] [address] PCP - General 11/13/08 documented as of this encounter
--- OUTSIDE RECORDS SUMMARY | 2024-03-22 10:54 | XMS_ITS | Encounter Summary ---
Author Organization [facility] Address [address] [place] [address] Care Team Providers Care Product Manager Medical Device Name Role Phone Lolly Oliveira MD Primary Care Provider [phone] Encounter Details Date Type Department Care Team (Late st Contact Info) Description 05/29/2002 Results Only [facility] conversion [address] [place] [address] Silvia Diehl, [address] [place] [phone] Social History Tobacco Use Types Packs/Day Years [...] ? LYLE, JING ? Accession #: ? [id number] : ? 1950 (Age: 51) ??F ?Collect Date: ? 05/29/2002 Location: ? [facility] ? Receive Date: ? 05/31/2002 Provider: ?SILVIA DIEHL SUBSTITUTE TEACHER Copy to: ? Specimen/Source: ?ThinPrep Pap [...] [facility] 05/29/2002 05/31/2002 us Silvia Diehl SUBSTITUTE TEACHER PATHOLOGY ORDERABLES Final R esult [facility] [address] [place] [address] documented in this encounter Visit Diagnoses Not on filedocumented in this encounter Care Teams Product Manager Medical Device Relationship Specialty Start Date End Date Lolly Oliveira MD [address] [place] [address] PCP - General 11/13/08 documented as of this encounter
--- OUTSIDE RECORDS SUMMARY | 2024-03-22 10:54 | XMS_ITS | Clinical Summary ---
Author Organization [facility] [place] [address] Care Team Providers Care Social Services Coordinator Name Role Phone Lolly Oliveira MD Primary Care Provider [phone] Allergies Active Allergy Reactions Criticality Noted Date [...] spacer Active fluticasone propionate (Flonase) 50 mcg/actuation [place], Suspension 1 spray by Each Nare [...] PM EST Hospital Encounter [place] [address] Discharge Disposition: Home from Last [...] AM EST Hospital Encounter [place] [address] Arrived Health Maintenance Due Date Last Done Comments CT Colonography 1950 Colonoscopy 1950 Colorectal Cancer Screening 1950 FIT DNA 1950 FIT 1950 Sigmoidoscopy (10 year) with FIT yearly 1950 Sigmoidoscopy 1950 Hepatitis C Screening 1966 Tetanus/Diphtheria/Pertussis Vaccines (1 - Tdap) 08/09 Pneumoccocal Vaccine: 50+ (1 of 1 - PCV) 1998 Zoster vaccine (1 of 2) 1998 Advance Directive 08/10/2003 Bone Density Scan 2013 RSV Vaccine (1 - 1-dose 75+ series) 08/10/2023 Covid-19 Vaccine (1 - 2023- season) 2023 Influenza (Flu) vaccine (1 o f 1 - Influenza standard series) 11/07/2023 Medical Devices Implanted Type Area Yeast Pumper Device Identifier Shelf Expiration Date Model / Serial / Lot Bsx: [id number]: [id number]/18/2 023 Implanted: by Lalit Mcmahon MD (Quantity not on file) Defibrillator Chest Wall [employer] [id number] / [id number] / Bsx: [id number]: 755908-1/18/2 023 Implanted: by Lalit Mcmahon MD (Quantity not on file) Lead Heart [employer] [id number] / [id number] / Bsx: [id number]: [id number] Implanted: by Lalit Mcmahno MD (Quantity not on file) Lead Heart [employer] [id number] / [id number] / Bsx: [id number]: [id number]/18/2 023 Implanted: by Lalit Mcmahon MD (Quantity not on file) Lead Heart [employer] [id number] / [id number] / Procedures Procedure Name Priority Date/Time Associated Diagnosis Comments CARDIAC DEVICE CHECK - REMOTE Routine 02/18/2024 4:30 AM EST from Last 3 Months Results * Cardiac Device Check - Remote (02/18/2024 4:30 AM EST) Anatomical Region Laterality Modality Other 02/18/2024 4:30 AM EST Lalit Mcmahon MD IMPLANTABLE CARDIAC DEVICE from Last 3 Months Advance Directives * Attempt Cardiopulmonary Resuscitation - Inpatient (Latest Code Status on File) Date Activated Date Inactivated Comments 07/23/2022 4:30 PM 07/24/2022 12:32 PM Question Answer Comments Code Status decision made by: Patient Care Teams Social Services Coordinator Relationship Specialty Start Date End Date Lolly Oliveira MD [address] [place] [id number] PCP - General 07/17/13
--- OUTSIDE RECORDS SUMMARY | 2024-03-22 10:54 | XMS_ITS | Encounter Summary ---
Author Organization [facility] Address [address] [place] [address] Care Team Providers Care Abstract Maker Name Role Phone Lolly Oliveira MD Primary Care Provider [phone] Encounter Details Date Type Department Care Team (Late st Contact Info) Description 02/11/2021 Lab Requisition [facility] Pathology & Laboratory Medicine - [address] [phone] Outr Resulting Lab, Provider Social History Tobacco [...] GENER AL ORDERABLES Final Result [facility] [address] [place] [address] * COVID-19 TESTING (02/11/2021 8:00 EST) COVID-19 rt-PCR Result Negative Negative 02/12/2021 14:17 EST [facility] Comment: This test [...] performed using the med SARS-CoV-2 assay ([employer] on the Med 6800 System Performing Lab Med [address] [facility] Lab 02/12/2021 14:17 EST [facility] Swab 02/11/2021 8:00 EST 02/11/2021 22:22 EST us Provider Outr Resulting Lab MICROBIOLOGY - GENER AL ORDERABLES Final Result [facility] [address] [place] [address] documented in this encounter Visit Diagnoses Not on filedocumented in this encounter Care Teams Abstract Maker Relationship Specialty Start Date End Date Lolly Oliveira MD [address] [place] [address] PCP - General 11/13/08 documented as of this encounter
--- OUTSIDE RECORDS SUMMARY | 2024-03-22 10:54 | XMS_ITS | Encounter Summary ---
Author Organization [facility] Address [address] [place] [address] Care Team Providers Care Seedling Sorter Name Role Phone Lolly Oliveira MD Primary Care Provider [phone] Encounter Details Date Type Department Care Team (Late st Contact Info) Description 06/16/2012 Results Only [facility] Laboratory Services - [facility] [address] [place], [place] [id number] Lolly Oliveira MD [address] [place], [place] [id number] Social History Tobacco Use Types Packs/Day Years [...] ? JING ALVARENGA ? Accession #: ? [id number] : ? 1950 (Age: 61) ??F ?Collect [...] ORDERABLES Final Resu lt [facility] [address] [place] [address] documented in this encounter Visit Diagnoses Not on filedocumented in this encounter Care Teams Seedling Sorter Relationship Specialty Start Date End Date Lolly Oliveira MD [address] [place] [address] PCP - General 11/13/08 documented as of this encounter
--- OUTSIDE RECORDS SUMMARY | 2024-03-22 10:54 | XMS_ITS | Encounter Summary ---
Author Organization [facility] Address [facility] [place] [address] Care Team Providers Care Inpatient Services Director Name Role Phone Lolly Oliveira MD Primary Care Provider [phone] Encounter Details Date Type Department Care Team (Late st Contact Info) Description 01/29/2023 Notes Only Cardiology at [address] [address] Merle Lin PA [facility] [place] [address] Social History Tobacco Use Types Packs/Day Years [...] of this encounter Progress Notes * Merle Lni PA - 01/29/2023 9:06 AM EST HeartLogic Heart Failure Index Alert Outpatient remote interrogation report: See full report as a linked pdf document Date of transmission: 01/29/2023 Device mechanic sound technician: BSI Device type: CHILD DAY CARE TEACHER-D Presenting rhythm: /RVP/LVP AP 21% Right FILTER TANK TENDER HELPER HEAD 100% Left FILTER TANK TENDER HELPER HEAD: 100% Battery: 10.5 years HeartLogic Index rising in setting of increasing S3 intensity, increasing respiratory rate, increasing night heart rate, and increasing mean heart rate. MICKEY Villa 01/29/2023 9:06 AM documented in this encounter Plan of Treatment Upcoming Encounters Date Type Department Care Team (Late st Contact Info) Description 04/15/2024 10:00 AM EST Hospital Encounter Non-Invasive [place] [address] Arrived documented as of this encounter Visit Diagnoses Not on filedocumented in this encounter Care Teams Inpatient Services Director Relationship Specialty Start Date End Date Lolly Oliveira MD [address] [place] [address] PCP - General 07/17/13 documented as of this encounter
--- OUTSIDE RECORDS SUMMARY | 2024-03-22 10:54 | XMS_ITS | Encounter Summary ---
Author Organization [facility] Address [facility] [place] [address] Care Team Providers Care Vp Product Management Name Role Phone Lolly Oliveira MD Primary Care Provider [phone] Encounter Details Date Type Department Care Team (Late st Contact Info) Description 11/11/2022 Orders Only Cardiology at [address] [phone] Lalit Mcmahon MD [facility] [place] [address] Nonischemic cardiomyopathy Social History Tobacco Use Types Packs/Day Years Used Date Smoking Tobacco: Never Alcohol Use Standard Drinks/Week Comments Not Currently 0 (1 standard drink = 0.6 oz pur e alcohol) [facility] Inpatient Questions Answer Date Recorded Does [...] [facility] Encounter Non[place] [address] Arrived documented as of this encounter Visit Diagnoses Diagnosis Nonischemic cardiomyopathy Other primary cardiomyopathies documented in this encounter Care Teams Vp Product Management Relationship Specialty Start Date End Date Berrian, Lolly M, MD [address] [place] [address] PCP - General 07/17/13 documented as of this encounter
--- OUTSIDE RECORDS SUMMARY | 2024-03-22 10:54 | XMS_ITS | Encounter Summary ---
Author Organization [facility] [place] [address] Care Team Providers Care Wedding Photographer Name Role Phone Lolly Oliveira MD Primary Care Provider [phone] Encounter Details Date Type Department Care Team (Late st Contact Info) Description 05/18/2023 Telephone Dermatology at [address] [address] Nora Meredith LPN Social History [...] AM [facility] Encounter Non-[place] [address] Arrived documented as of this encounter Visit Diagnoses Not on filedocumented in this encounter Care Teams Wedding Photographer Relationship Specialty Start Date End Date Lolly Oliveira MD [address] [place] [address] PCP - General 07/17/13 documented as of this encounter
--- OUTSIDE RECORDS SUMMARY | 2024-03-22 10:54 | XMS_ITS | Encounter Summary ---
Author Organization [facility] [place] [address] Care Team Providers Care Wound Care Nurse Name Role Phone Lolly Oliveira MD Primary Care Provider [phone] Encounter Details Date Type Department Care Team (Latest Contact Info) Description 04/21/2023 10:00 AM EST - 04/21/2023 11:59 PM EST Hospital Encounter [place] [address] Discharge Disposition: Home Social History Tobacco Use [...] with spacer fluticasone propionate (Flonase) 50 mcg/actuation [place], Suspension 1 spray by Each Nare route [...] AM EST Hospital Encounter [place] [address] Arrived documented as of this [...] on filedocumented in this encounter Care Teams Wound Care Nurse Relationship Specialty Start Date End Date Lolly Oliveira MD [address] [place] [address] PCP - General 07/17/13 documented as of this encounter
--- OUTSIDE RECORDS SUMMARY | 2024-03-22 10:54 | XMS_ITS | Referral Summary ---
Author Organization [facility] Address [address] [place] [address] Care Team Providers Care Ambulatory Service Representative Name Role Phone Lolly Oliveira MD Primary Care Provider [phone] Social History Tobacco Use Types Packs/Day Years Used Date Smoking Tobacco: Never Assessed Comments Unknown Sex and Gender Information Value Date Recorded Sex Assigned at Not on file Legal Sex Female 18:31 EST Gender Identity Not on file Sexual Orientation Not on file Plan of Treatment Not on file Insurance [facility] MEDICARE Care Teams Ambulatory Service Representative Relationship Specialty Start Date End Date Lolly Oliveira MD [address] [place] [address] PCP - General 11/13/08
--- OUTSIDE RECORDS SUMMARY | 2024-03-22 10:54 | XMS_ITS | Encounter Summary ---
Author Organization [facility] [place] [address] Care Team Providers Care Pharmacy Clerk Name Role Phone Lolly Oliveira MD Primary Care Provider [phone] Encounter Details Date Type Department Care Team (Late st Contact Info) Description 05/18/2023 Refill Dermatology at [address] [address] Nora Meredith LPN Social History [...] AM EST Hospital Encounter [place] [address] Arrived documented as of this encounter Visit Diagnoses Not on filedocumented in this encounter Care Teams Pharmacy Clerk Relationship Specialty Start Date End Date Lolly Oliveira MD [address] [place] [address] PCP - General 07/17/13 documented as of this encounter
--- OUTSIDE RECORDS SUMMARY | 2024-03-22 10:54 | XMS_ITS | Encounter Summary ---
Author Organization [facility] Address [address] [place] [address] Care Team Providers Care Lock Master Name Role Phone Lolly Oliveira MD Primary Care Provider [phone] Encounter Details Date Type Department Care Team (Late st Contact Info) Description 05/02/2004 Results Only [facility] conversion [address] [place] [address] Lolly Oliveira MD [address] [place], [place] [id number] Social History Tobacco Use Types Packs/Day Years [...] [facility]. [facility] Report Status Final [id number] [facility] 05/02/2004 9:32 EST 05/10/2004 9:32 EST us Lolly Oliveira MD MICROBIOLOGY - GENERAL ORDERABL ES Final Result [facility] [address] [place] [address] * CYTOPATHOLOGY (05/02/2004 0:00 EST) Pathology Report: CYTOPATHOLOGY REPORT Reports generated via electronic interface contain original data; however they are lacking the format of the original report. Caution should be taken when reading/interpreti ng unformatted reports. Name: ? JING ALVARENGA ? Accession #: ? [id number] : ? 1950 (Age: 53) ??F ?Collect [...] ORDERABLES Final Resu lt Performing Organization Address City/State/[facility] Co de Phone Number [facility] [address] [place] [address] documented in this encounter Visit Diagnoses Not on filedocumented in this encounter Care Teams Lock Master Relationship Specialty Start Date End Date Lolly Oliveira MD [address] [place] [address] PCP - General 11/13/08 documented as of this encounter
--- OUTSIDE RECORDS SUMMARY | 2024-03-22 10:54 | XMS_ITS | Encounter Summary ---
Author Organization [facility] Address [facility] [place] [address] Care Team Providers Care Director Stars Name Role Phone Lolly Oliveira MD Primary Care Provider [phone] Encounter Details Date Type Department Care Team (Late st Contact Info) Description 05/03/2023 Telephone Cardiology at [address] [phone] Lalit Mcmahon MD [facility] [place] [address] Social History Tobacco Use Types Packs/Day Years [...] Hospital Encounter [place] [address] Arrived documented as of this encounter Visit Diagnoses Not on filedocumented in this encounter Care Teams Director Stars Relationship Specialty Start Date End Date Lolly Oliveira MD [address] [place] [address] PCP - General 07/17/13 documented as of this encounter
--- OUTSIDE RECORDS SUMMARY | 2024-03-22 10:55 | XMS_ITS | Encounter Summary ---
[place] [address] Care Team Providers Care Street Superintendent Name Role Phone Lolly Oliveira MD Primary Care Provider [phone] Encounter Details Date Type Department Care Team [...] AM EST Hospital Encounter [place] [address] Arrived documented as of this encounter Visit Diagnoses Not on filedocumented in this encounter Care Teams Street Superintendent Relationship Specialty Start Date End Date Lolly Oliveira MD [address] [place] [address] PCP - General 07/17/13 documented as of this encounter
--- OUTSIDE RECORDS SUMMARY | 2024-03-22 10:55 | XMS_ITS | Encounter Summary ---
Author Organization [facility] [place] [address] Care Team Providers Care Plastic Joint Maker Name Role Phone Lolly Oliveira MD Primary Care Provider [phone] Encounter Details Date Type Department Care Team (Late st Contact Info) Description 06/29/2011 [place] [address] Eleno Christian MD Social History Tobacco Use Types Packs/Day Years Used Date Smoking Tobacco: Never Assessed Sex and Gender Information Value Date Recorded Sex Assigned at Not on file Gender Identity Not on file Sexual Orientation Not on file documented as of this encounter Plan of Treatment Upcoming Encounters Date Type Department Care Team (Late st Contact Info) Description 04/15/2024 10:00 AM [facility] [[email or web address] Hospital Encounter Non-Invasive [place] [address] Arrived documented as of this encounter Procedures [...] filedocumented in this encounter Care Teams Plastic Joint Maker Relationship Specialty Start Date End Date Lolly Oliveira MD [address] [place] [address] PCP - General 07/17/13 documented as of this encounter
--- OUTSIDE RECORDS SUMMARY | 2024-03-22 10:55 | XMS_ITS | Encounter Summary ---
Author Organization [facility] [place] [address] Care Team Providers Care Data Specialist Name Role Phone Lolly Oliveira MD Primary Care Provider [phone] Encounter Details Date Type Department Care Team (Latest Contact Info) Description 07/26/2013 9:44 AM EDT - 07/26/2013 11:59 PM EDT Hospital En[place] [address] CLINIC, Lolly So MD [address] [place], [place] [id number] Mammographic microcalcification Discharge Disposition: Home Social History [...] AM EST Hospital Encounter [place] [address] Arrived documented as of this encounter Procedures [...] are present on specimen digital X-ray. A emaze-Stereo 13 Cylinder marker clip was placed. Cranio-caudal [...] mLs documented in this encounter Care Teams Data Specialist Relationship Specialty Start Date End Date Lolly Oliveira MD [address] [place] [address] PCP - General 07/17/13 documented as of this encounter
--- OUTSIDE RECORDS SUMMARY | 2024-03-22 10:55 | XMS_ITS | Encounter Summary ---
Author Organization [facility] Address [facility] [place] [address] Care Team Providers Care Assistant Hairstylist Name Role Phone Lolly Oliveira MD Primary Care Provider [phone] Reason for Visit * Auth/Cert (Routine) Specialty Diagnoses / Procedures Referred By Contac t Referred To Contact Diagnoses Left bundle-branch block, unspecified Other cardiomyopathies Left bundle branch block [I44.7]Nonischemic cardiomyopathy [I42.8] Procedures PRG CATH PLMT LEFT HEART CATH & ARTS W/INJ & ANGIO IMG S&I ELECTROPHYSIOLOGY PROCEDURE Lalit Mcmahon MD [facility] [address] [facility] [[email or web address]] Referral ID Status Reason Start Date Expiration Date Visits Re quested Visits Authorized [id number] 1 1 Encounter Details Date Type Department Care Team (Late st Contact Info) Description 07/23/2022 1:08 PM EDT Anesthesia Event [place] [address] Monae Gonzalez MD [facility] [place] [address] Maria Elena Snyder CRNA [facility] [place] [address] Anesthesia Record Procedure Summary Procedure Name Responsible [...] 1307; median cubital vein (antecubital fossa), right; auki-yre-otdthj catheter system; Anatomical Landmarks; 20 gauge; 07/24/22; [...] 1343; metacarpal vein (top of hand), left; zwdz-rbk-tjliao catheter system; Anatomical Landmarks; US Not Used; [...] Procedure Summary Date: 07/23/22 Room / Location: [facility] A-LAB ROOM 3 / [facility] EP LABS Anesthesia Start: 1308 Anesthesia Stop: 1633 Procedure: ELECTROPHYSIOLOGY PROCEDURE (Left) Diagnosis: Left bundle branch block Nonischemic cardiomyopathy (Left bundle branch block [I44.7]Nonischemic cardiomyopathy [I42.8]) Providers: Lalit Mcmahon MD Responsible Provider: Monae Gonzalez MD Anesthesia Type: general ASA Status: 4 All Anesthesia Providers: Anesthesiologist: Monae Gonzalez MD; Dominique Sen MD DATACAP DEVELOPER: Maria Elena Snyder CRNA Vitals Value Taken Time BP 131/46 07/23/22 1700 Temp 36.7 ??C (98.1 ??F) 07/23/22 1627 Pulse 67 07/23/22 1703 Resp 14 07/23/22 1703 SpO2 98 % 07/23/22 1703 Pain Level Vitals shown include unvalidated device data. Patient Location: PACU/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 No prior anesthetic records. Pt states that [...] daughter/son and patient who. Plan discussed with DATACAP DEVELOPER. Anesthesia Screening documented in this encounter Plan of Treatment Upcoming Encounters Date Type Department Care Team (Late st Contact Info) Description 04/15/2024 10:00 AM [facility] Hospital Encounter Non-Invasive Cardiology [place] [address] Arrived documented as of this [...] mg documented in this encounter Care Teams Assistant Hairstylist Relationship Specialty Start Date End Date Lolly Oliveira MD [address] [place] [address] PCP - General 07/17/13 documented as of this encounter
--- OUTSIDE RECORDS SUMMARY | 2024-03-22 10:55 | XMS_ITS | Encounter Summary ---
Author Organization [facility] [address] Care Team Providers Care Railroad Purchasing Agent Name Role Phone Lolly Oliveira MD Primary Care Provider [phone] Encounter Details Date Type Department Care Team (Late st Contact Info) Description 10/09/2021 Telephone Dermatology at [address] [address] Nora Meredith LPN Social History [...] [facility] Hospital Encounter Non-In[place] [address] Arrived documented as of this encounter Visit Diagnoses Not on filedocumented in this encounter Care Teams Railroad Purchasing Agent Relationship Specialty Start Date End Date Lolly Oliveira MD [address] [place] [address] PCP - General 07/17/13 documented as of this encounter
--- OUTSIDE RECORDS SUMMARY | 2024-03-22 10:55 | XMS_ITS | Encounter Summary ---
Author Organization [facility] [place] [address] Care Team Providers Care Production Pattern Maker Name Role Phone Unavailable Primary Care Provider Unavailabl e Encounter Details Date Type Department Care Team (Late st Contact Info) Description 07/04/2012 [place] [address] Eleno Christian MD Social History Tobacco Use [...] AM EST Hospital Encounter Non-[place] [address] Arrived documented as of this encounter Procedures [...]
--- OUTSIDE RECORDS SUMMARY | 2024-03-22 10:55 | XMS_ITS | Encounter Summary ---
Author Organization [facility] [place] [address] Care Team Providers Care Ui Ux Developer Name Role Phone Lolly Oliveira MD Primary Care Provider [phone] Encounter Details Date Type Department Care Team (Late st Contact Info) Description 07/26/2013 [place] [address] Eleno Christian MD Social History [...] [facility] Hospital Encounter Non-In[place] [address] Arrived documented as of this encounter Visit Diagnoses Not on filedocumented in this encounter Care Teams Ui Ux Developer Relationship Specialty Start Date End Date Lolly Oliveira MD [address] [place] [address] PCP - General 07/17/13 documented as of this encounter
--- OUTSIDE RECORDS SUMMARY | 2024-03-22 10:55 | XMS_ITS | Encounter Summary ---
Author Organization [facility] [place] [address] Care Team Providers Care Registered Radiologic Technologist Name Role Phone Lolly Oliveira MD Primary Care Provider [phone] Reason for Referral * Consultation (Routine) - Closed Specialty Diagnoses / Procedures Referred By Contact Referred To Contact Electrophysiology / Cardiology Diagnoses Left bundle branch block Cardiomyopathy, unspecified type AT MINIMUM PT NEEDS CONSIDERATION FOR DEFIBRILLATOR, ALSO CANDIDATE FOR RESYNCHRONIZATION THERAPY HER QRS IS >0.16 Lolly Oliveira MD [address] [place] [address] [facility] Cardiology [address] [place] [phone] Referral ID Status Reason Start Date Expiration Date V isits Requested Visits Authorized [id number] Closed Consult, Test & Treat PCP Updated and/or Approved 04/30/2022 04/30/2023 6 6 Encounter Details Date Type Department Care Team (Latest Contact Info) Description 04/30/2022 Transcribe Orders eDH Incoming Referrals [phone] Lolly Oliveira MD [address] [place], [place] [phone] Left bundle branch block; Cardiomyopathy, unspecified type [...] AM EST Hospital Encounter Non-Invasive [place] [address] Arrived Scheduled Referrals Name Type Priority Associated Diagnoses Orde r Schedule Referral to Cardiology Outpatient Referral Routine Left bundle branch block Cardiomyopathy, Unspecified Type Ordered: 04/30/2022 documented as of this encounter Visit Diagnoses Diagnosis Left bundle branch block Other left bundle branch block Cardiomyopathy, unspecified type documented in this encounter Care Teams Registered Radiologic Technologist Relationship Specialty Start Date End Date Lolly Oliveira MD [address] [place] [address] PCP - General 07/17/13 documented as of this encounter
--- OUTSIDE RECORDS SUMMARY | 2024-03-22 10:55 | XMS_ITS | Encounter Summary ---
[place] [address] Care Team Providers Care Top Stitcher Name Role Phone Lolly Oliveira MD Primary Care Provider Encounter Details Date Type Department Care Team (Latest Contact Info) Description 07/26/2013 9:45 AM EDT - 07/26/2013 11:59 PM EDT Hospital En[place] [address] Mammographic microcalcification Social History Tobacco Use Types [...] AM EST Hospital Encounter Non-[place] [address] Arrived documented as of this encounter Procedures Procedure Name Priority Date/Time Associated Diagnosis Comments SURGICAL PATHOLOGY REPORT Routine 07/26/2013 12:12 PM EDT MAMMO SPECIMEN IMAGING DURING BIOPSY Routine 07/26/2013 11:58 AM EDT Mammographic microcalcification documented in this encounter Results * Surgical Pathology Report (07/26/2013 12:12 PM EDT) Final Diagnosis ? [facility] ? Provider: ?? ELENO CHRISTIAN ?? Pt. Name: ?? JING MOTT ? Acc #: ?[id number] ?Pt. ? Col Date: ?? 07/26/2013 ? [...] Partially fragmented, fibrofatty needle core biopsies. ? [facility] ? Provider: ?? ELENO CHRISTIAN ?? Pt. Name: ?? JING MOTT ? Acc #: ?[id number] ?Pt. ? Col Date: ?? 07/26/2013 ? [...] FCD, adenosis, DCIS 07/28/2013 8:29 AM EDT [facility] BREAST STRUCTURE / Unknown 07/26/2013 12:12 PM EDT 07/26/2013 12:12 PM EDT Eleno Christian MD PATHOLOGY/CYTOLOGY O RDERABLES Performing Organization Address City/State/[facility] Co ms Phone Number [facility] [place] [address] * Mammo Specimen Imaging During Biopsy (07/26/2013 [...] microcalcification documented in this encounter Care Teams Top Stitcher Relationship Specialty Start Date End Date Lolly Oliveira MD [address] [place] [address] PCP - General 07/17/13 documented as of this encounter
--- OUTSIDE RECORDS SUMMARY | 2024-03-22 10:55 | XMS_ITS | Encounter Summary ---
Author Organization [facility] [place] [address] Care Team Providers Care Station Superintendent Name Role Phone Lolly Oliveira MD Primary Care Provider [phone] Encounter Details Date Type Department Care Team (Late st Contact Info) Description 04/01/2021 3:30 PM EST Office Visit Dermatology at [address] [phone] Clay Ramírez MD [address], [place] [address] Psoriasis, guttate Social History Tobacco Use Types [...] benign skin examination. She referred today by Eelna Raymond NP and Lolly Oliveira MD. apparently [...] AM EST Hospital Encounter Non-In[place] [address] Arrived documented as of this encounter Visit Diagnoses Diagnosis Psoriasis, guttate Other psoriasis documented in this encounter Care Teams Station Superintendent Relationship Specialty Start Date End Date Lolly Oliveira MD [address] [place] [address] PCP - General 07/17/13 documented as of this encounter
--- OUTSIDE RECORDS SUMMARY | 2024-03-22 10:55 | XMS_ITS | Encounter Summary ---
Author Organization [facility] [place] [address] Care Team Providers Care Presentation Team Member Name Role Phone Lolly Oliveira MD Primary Care Provider [phone] Encounter Details Date Type Department Care Team (Latest Contact Info) Description 07/17/2013 8:40 AM EDT - 07/17/2013 11:59 PM EDT Hospital Encounter XRay at [address] [place] [address] CLINIC, DR [facility] Discharge Disposition: Home Social [...] AM EST Hospital Encounter Non-Invasive [place] [address] Arrived documented as of this encounter Visit Diagnoses Not on filedocumented in this encounter Care Teams Presentation Team Member Relationship Specialty Start Date End Date Lolly Oliveira MD [address] [place] [address] PCP - General 07/17/13 documented as of this encounter
--- OUTSIDE RECORDS SUMMARY | 2024-03-22 10:55 | XMS_ITS | Encounter Summary ---
Author Organization [facility] [place] [address] Care Team Providers Care Electric Freight Car Operator Name Role Phone Lolly Oliveira MD Primary Care Provider [phone] Reason for Visit * Reason Comments Follow-up Encounter Details Date Type Department Care Team (Late st Contact Info) Description 06/06/2021 8:45 AM EDT Office Visit Dermatology at [address] [address] Clay Ramírez MD [address] [facility], [place] [address] Psoriasis, guttate Social History Tobacco Use Types [...] AM EST Hospital Encounter [place] [phone] Arrived documented as of this encounter Visit Diagnoses Diagnosis Psoriasis, guttate Other psoriasis documented in this encounter Care Teams Electric Freight Car Operator Relationship Specialty Start Date End Date Lolly Oliveira MD [address] [place] [address] PCP - General 07/17/13 documented as of this encounter
--- OUTSIDE RECORDS SUMMARY | 2024-03-22 10:55 | XMS_ITS | Encounter Summary ---
Author Organization [facility] Address [facility] [place] [address] Care Team Providers Care Machined Parts Quality Inspector Name Role Phone Lolly Oliveira MD Primary Care Provider [phone] Encounter Details Date Type Department Care Team (Late st Contact Info) Description 07/16/2022 Telephone Cardiology at [address] [phone] Lalit Mcmahon MD [facility] [place] [address] Social History Tobacco Use Types Packs/Day Years [...] her nonischemic cardiomyopathy. She is scheduled for FEED MILLER-D implantation next week and looks forward to the procedure. We will see each other next week. Lalit Mcmahon MD [facility] Cardiac Electrophysiology 07/16/2022 8:52 AM documented in this encounter Plan of Treatment Upcoming Encounters Date Type Department Care Team (Late st Contact Info) Description 04/15/2024 10:00 AM EST Hospital Encounter [place] [address] Arrived documented as of this encounter Visit Diagnoses Not on filedocumented in this encounter Care Teams Machined Parts Quality Inspector Relationship Specialty Start Date End Date Lolly Oliveira MD [address] [place] [address] PCP - General 07/17/13 documented as of this encounter
--- OUTSIDE RECORDS SUMMARY | 2024-03-22 10:55 | XMS_ITS | Encounter Summary ---
Author Organization [facility] [place] [address] Care Team Providers Care Cotton Gin Yard Supervisor Name Role Phone Lolly Oliveira MD Primary Care Provider [phone] Reason for Visit * Reason Onset Date Comments Other 07/24/2022 Implanted Cardia c Device Teaching/Education Encounter Details Date Type Department Care Team (Late st Contact Info) Description 07/24/2022 Notes Only Cardiology at [address] [phone] Letha Arroyo Other (Implanted Cardiac Device Teaching/Education) [...] to call the Cardiac Device Clinic at [phone] with any questions. Plan: Post op check: [...] [facility] Hospital Encounter Non-[place] [address] Arrived documented as of this encounter Visit Diagnoses Not on filedocumented in this encounter Care Teams Cotton Gin Yard Supervisor Relationship Specialty Start Date End Date Lolly Oliveira MD [address] [place] [address] PCP - General 07/17/13 documented as of this encounter
--- OUTSIDE RECORDS SUMMARY | 2024-03-22 10:55 | XMS_ITS | Encounter Summary ---
Author Organization [facility] [place] [address] Care Team Providers Care Circuit Manager Name Role Phone Lolly Oliveira MD Primary Care Provider [phone] Reason for Visit * Diagnostic Test (Routine) - Closed Specialty Diagnoses / Procedures Referred By Contac t Referred To Contact Radiology Diagnoses Left bundle branch block Nonischemic cardiomyopathy Procedures MRI Cardiac Morphology Function With Flow Velocity Quantification wwo Contrast MRI Cardiac Morphology Function wwo Contrast Lalit Mcmahon MD [facility] [place] [address] [facility] [place] [address] Referral ID Status Reason Start Date Expiration Date V isits Requested Visits Authorized [id number] Closed Specialty Service Requested 05/06/2022 11/07/2023 2 1 Encounter Details Date Type Department Care Team (Latest Contact Info) Description 07/14/2022 9:09 AM EDT - 07/14/2022 11:59 PM EDT Hospital [place] [address] Lalit Mcmahon MD [facility] [place] [address] Discharge Disposition: Home Social History Tobacco Use [...] with spacer fluticasone propionate (Flonase) 50 mcg/actuation [place], Suspension 1 spray by Each Nare route [...] EST Hospital Encounter Non-[place] [address] Arrived documented as of this [...] mLs documented in this encounter Care Teams Circuit Manager Relationship Specialty Start Date End Date Lolly Oliveira MD [address] [place] [address] PCP - General 07/17/13 documented as of this encounter
--- OUTSIDE RECORDS SUMMARY | 2024-03-22 10:55 | XMS_ITS | Encounter Summary ---
Author Organization [facility] [place] [address] Care Team Providers Care Urban Anthropologist Name Role Phone Lolly Oliveira MD Primary Care Provider [phone] Reason for Visit * Reason Comments Follow-up Encounter Details Date Type Department Care Team (Late st Contact Info) Description 07/02/2022 8:00 AM EDT Office Visit Dermatology at [address] [phone] Clay Ramírez MD [address] [facility], [place] [address] Psoriasis, guttate Social History Tobacco Use Types [...] [facility] Hospital Encounter Non-Invasive [place] [address] Arrived documented as of this encounter Visit Diagnoses Diagnosis Psoriasis, guttate Other psoriasis documented in this encounter Care Teams Urban Anthropologist Relationship Specialty Start Date End Date Lolly Oliveira MD [address] [place] [address] PCP - General 07/17/13 documented as of this encounter
--- OUTSIDE RECORDS SUMMARY | 2024-03-22 10:55 | XMS_ITS | Encounter Summary ---
Author Organization [facility] [place] [address] Care Team Providers Care Department Head Name Role Phone Lolly Oliveira MD Primary Care Provider Encounter Details Date Type Department Care Team (Latest Contact Info) Description 07/26/2013 9:45 AM EDT - 07/26/2013 11:59 PM EDT Hospital En[place] [address] Mammographic microcalcification Social History Tobacco Use Types [...] EST Hospital Encounter Non-Invasive [place] [address] Arrived documented as of this encounter Procedures [...] microcalcification documented in this encounter Care Teams Department Head Relationship Specialty Start Date End Date Lolly Oliveira MD [address] [place] [address] PCP - General 07/17/13 documented as of this encounter
--- OUTSIDE RECORDS SUMMARY | 2024-03-22 10:55 | XMS_ITS | Encounter Summary ---
Author Organization [place] [address] Care Team Providers Care Manager Of Patient Name Role Phone Lolly Oliveira MD Primary Care Provider [phone] Reason for Referral * Diagnostic Test (Routine) - Closed Specialty Diagnoses / Procedures Referred By Contac t Referred To Contact Radiology Diagnoses Left bundle branch block Nonischemic cardiomyopathy Procedures MRI Cardiac Morphology Function With Flow Velocity Quantification wwo Contrast MRI Cardiac Morphology Function wwo Contrast Lalit Mcmahon MD [facility] [place] [address] [place] [address] Referral ID Status Reason Start Date Expiration Date V isits Requested Visits Authorized [id number] Closed Specialty Service Requested 05/06/2022 11/07/2023 2 1 Encounter Details Date Type Department Care Team (Late st Contact Info) Description 05/06/2022 Orders Only Cardiology at [address] [phone] Lalit Mcmahon MD [facility] [place] [address] Left bundle branch block; Nonischemic cardiomyopathy Social [...] Hospital Encounter [place] [address] Arrived documented as of this encounter Results [...] have questions please contact the health career orientation teacher that requested your imaging first. ? [...] who have questions please contactthe health career orientation teacher that requested your imaging first. Lalit Mcmahon MD IMG MRI ORDERABLES documented in this encounter Visit Diagnoses Diagnosis Left bundle branch block Other left bundle branch block Nonischemic cardiomyopathy Other primary cardiomyopathies Left bundle branch block Other left bundle branch block Nonischemic cardiomyopathy Other primary cardiomyopathies documented in this encounter Care Teams Manager Of Patient Relationship Specialty Start Date End Date Lolly Oliveira MD [address] [place] [address] PCP - General 07/17/13 documented as of this encounter
--- OUTSIDE RECORDS SUMMARY | 2024-03-22 10:55 | XMS_ITS | Encounter Summary ---
Author Organization [facility] [place] [address] Care Team Providers Care Statistical Financial Analyst Name Role Phone Lolly Oliveira MD Primary Care Provider [phone] Encounter Details Date Type Department Care Team (Latest Contact Info) Description 07/20/2013 9:26 AM EDT - 07/20/2013 11:59 PM EDT Hospital Encounter [place] [address] CLINIC, Lolly So MD [address] [place], [place] [id number] Mammographic microcalcification Discharge Disposition: Home Social History [...] AM EST Hospital Encounter Non-[place]vasive [place] [address] Arrived documented as of this encounter Procedures [...] not layer and, therefore, are not patient registration representative of milk of calcium. Again, these [...] not layer and, therefore, are not patient registration representative of milk of calcium. Again, these have an amorphous andpunctate appearance and remain indeterminate. Stereotactic guided biopsy isrecommended. Alia Fraire MD IMG MAMMO ORDERABLES documented in this encounter Visit Diagnoses Diagnosis Mammographic microcalcification documented in this encounter Care Teams Statistical Financial Analyst Relationship Specialty Start Date End Date Lolly Oliveira MD [address] [place] [address] PCP - General 07/17/13 documented as of this encounter
--- OUTSIDE RECORDS SUMMARY | 2024-03-22 10:55 | XMS_ITS | Encounter Summary ---
Author Organization [facility] [address] Care Team Providers Care Fender Finisher Name Role Phone Lolly Oliveira MD Primary Care Provider [phone] Reason for Visit * Auth/Cert (Routine) Specialty Diagnoses / Procedures Referred By Contac t Referred To Contact Diagnoses Left bundle-branch block, unspecified Other cardiomyopathies Left bundle branch block [I44.7]Nonischemic cardiomyopathy [I42.8] Procedures PRG CATH PLMT LEFT HEART CATH & ARTS W/INJ & ANGIO IMG S&I ELECTROPHYSIOLOGY PROCEDURE Lalit Mcmahon MD [facility] [place] [address] [facility] Referral ID Status Reason Start Date Expiration Date Visits Re quested Visits Authorized [id number] 1 1 Encounter Details Date Type Department Care Team (Late st Contact Info) Description 07/23/2022 1:00 PM EDT - 07/23/2022 5:30 PM EDT Surgery [place] [address] Lalit Mcmahon MD [facility] [place] [address] ELECTROPHYSIOLOGY PROCEDURE Social History Tobacco Use Types Packs/Day Years Used Date Smoking Tobacco: Never Tobacco Cessation:Counseling Given: Not Answered Alcohol Use Standard Drinks/Week Comments Not Currently 0 (1 standard drink = 0.6 oz pur e alcohol) [facility] Inpatient Questions Answer Date Recorded Does Anyone [...] Luna Mott Patient Age: 71 y.o. Language: Mosotho Race: White Ethnicity: Not nor Admit date: 07/23/2022 Discharge date and time: 07/24/22 Attending Physician: Lalit Mcmahon MD Discharge Physician: Lalit Mcmahon MD Follow-up Recommendations for Providers: - s/p WINDOWS SERVER SPECIALIST-D implant - post implant QRS 130 [...] ??? Solar lentigo Operations/Major Procedures: 07/23/22: [facility] WINDOWS SERVER SPECIALIST-D implant History of Presentation: 71 y.o. female with a history of HFrEF, LBBB, QRS >150, NYHA II who is POD#1 of WINDOWS SERVER SPECIALIST-D implant ([employer]). Hospital Course: Elective admission for WINDOWS SERVER SPECIALIST-D implant Admitted post-implant for pain management, [...] (heart failure with reduced ejection fraction) [I50.20] WINDOWS SERVER SPECIALIST-D implant Admission Condition: good Indication for [...] Make sure to use a cloth shrinking machine operator (such as a towel) in [...] F. The office scheduling phone number is [phone]. ARM MOVEMENT RESTRICTIONS POST-IMPLANT - Do not [...] please call the Cardiac ElectrophysiologyTriage Nurse at [phone], option 3. General Instructions None Discharge References/Attachments [...] Make sure to use a cloth shrinking machine operator (such as a towel) in [...] F. The office scheduling phone number is [phone]. ARM MOVEMENT RESTRICTIONS POST-IMPLANT - Do not [...] please call the Cardiac ElectrophysiologyTriage Nurse at [phone], option 3. documented in this encounter Medications [...] Cardiac Electrophysiology Post-Implant Device Interrogation Luna Mott [id number] 07/24/2022 History: Luna Mott is a 71 y.o. female with a history of HFrEF, LBBB, QRS >150, NYHA II who is POD#1 of WINDOWS SERVER SPECIALIST-D implant ([employer]). Overall feels well this morning. Ready [...] WOB Neuro- A&Ox3 Device Interrogation: Data ?? Tassel Snipper Model # Serial # Generator [employer] [id number] Atrial Lead [employer] 7841 [id number] RV Lead [employer] 0672 [id number] LV Lead [employer] 4674 [id number] ?? Diagnostics Pacing Mode: DDD 60-130 Underlying Rhythm: [place] Atrial Episodes: None Ventricular Episodes: None FINAL PROGRAMMING: Pacing: Mode Lower rate (ppm) Upper rate (ppm) ?? DDD 60 130 VF: Rate (bpm) #Antitachycardia pacing First shock energy (J) ?? 200 Quick convert 41 VT: 170 Monitor only Monitor only ? Battery and Leads Impedances (ohms) Sensing (mV) Thresholds HV RA RV LV RA RV LV RA RV LV 73 [phone] (LVa) 7.7 13.1 >25 0.4V @ 0.4 ms 0.4V @ 0.4 ms 0.5 V @ 1.0 ms POD#1 CXR: All leads in nominal positioning Impression: 71 y.o. female who is s/p WINDOWS SERVER SPECIALIST-D implant for LBBB, NYHA II, HFrEF. [facility] Fadi Nunez MD 07/24/2022 Pager: [phone] I met with the patient today and [...] agreement. ? Dr. Lalit Mcmahon, electrophysiology attending ([id number]) * Zaria Wright RN - 07/23/2022 8:28 [...] HF, QRS > 150 ms presents for WINDOWS SERVER SPECIALIST-D placement. ROS: Denies recent fevers or [...] 0.9) flush 5 mL 5 mL Intravenous [id number] ramos MD ??? sodium chloride 0.9 % [...] HF, QRS > 150 ms presents for WINDOWS SERVER SPECIALIST-D placement. Backup would be LBBAP lead. Antibiotics: cefazolin Rationales for, intended benefits and potential risk of planned procedures reviewed. The patient indicated understanding and agreement with the plan. Informed consent signed. Procedure checklist completed. Fadi Nunez MD Cardiac Electrophysiology Fellow [facility] Pager [phone] 07/23/2022 I met with the patient today [...] agreement. ? Dr. Lalit Mcmahon, electrophysiology attending ([id number]) documented in this encounter Miscellaneous Notes * Brief Op Note - Lalit Mcmahon MD - 07/23/2022 4:04 PM EDT Brief Operative Note Patient Name: Luna Mott : [id number] MR#: [id number] Case Date: 07/23/2022 Surgeon: Surgeon(s) and Role: [...] AM EST Hospital Encounter [place] [address] Arrived Scheduled Orders Name Type Priority Associated Diagnoses Orde r Schedule EKG 12 Lead ECG Routine Cardiac resynchronization therapy defibrillator (WINDOWS SERVER SPECIALIST-D) in place One Time for 1 [...] (Bezet) 522 ms MUSE SYSTEM Calculated R Harris 78 degrees MUSE SYSTEM Calculated T Harris -71 degrees MUSE SYSTEM INTERPRETATION AV dual-paced [...] who have questions please contact the health summer child caregiver that requested your imaging first. ? Electronically signed by: Kwame Vargas MD, [facility] ([phone]), at 07/24/2022 6:43 AM Narrative 07/24/2022 6:43 [...] dima. No acute osseous findings. Procedure Note Kwaem Vargas MD - 07/24/2022 EXAMINATION: XR CHEST [...] patients who have questions please contactthe health summer child caregiver that requested your imaging first. Electronically signed by: Kwame Vargas MD, [facility]([phone]), at 07/24/2022 6:43 AM Lalit Mcmahon MD IMG DX ORDERABLES * ELECTROPHYSIOLOGY PROCEDURE (07/23/2022 1:11 PM EDT) Anatomical Region Laterality Modality Other Narrative 07/23/2022 4:24 PM EDT Table formatting from the original result was not included. BIVENTRICULAR ICD IMPLANTATION Clock Repairer: Lalit Mcmahon MD Fellow: Fadi Nunez MD [...] lateral branch of the CS in the PANAMANIAN view. This branch was cannulated with a [...] the entire procedure. LEAD AND GENERATOR DATA: Tassel Snipper Model # Serial # Generator [employer] [id number] Atrial Lead [employer] 7841 [id number] RV Lead [employer] 0672 [id number] LV Lead [employer] 4674 [id number] PACE/SENSE DATA: Sensed wave (mV) Threshold (V) [...] (cGycm2) 300 CONCLUSIONS: Successful implantation of a [employer] biventricular ICD for primary prevention and treatment of symptoms related to congestive heart failure. Follow up in EP clinic in 1-2 months. Procedures performed: new ICD system ( cpt 61404-I2); implant LV lead at time of ICD insertion (cpt 91540) I have read, edited and approve of this report: Lalit Mcmahon MD [facility] Cardiac Electrophysiology 07/23/2022 4:22 PM Procedure Note Lalit Mcmahon MD - 07/23/2022 BIVENTRICULAR ICD IMPLANTATION Clock Repairer: Lalit Mcmahon MD Fellow: Fadi Nunez MD [...] appropriate lateralbranch of the CS in the PANAMANIAN view. This branch was cannulated with a [...] in the entireprocedure. LEAD AND GENERATOR DATA: Tassel Snipper Model # Serial # Generator [employer] [id number] Atrial Lead [employer] 7841 [id number] RV Lead [employer] 0672 289251 LV Lead [employer] 4674 946768 PACE/SENSE DATA: Sensed wave (mV) Threshold (V) [...] (cGycm2) 300 CONCLUSIONS: Successful implantation of a [employer] biventricular ICD forprimary prevention and treatment of symptoms related to congestive heartfailure. Follow up in EP clinic in 1-2 months. Procedures performed: new ICD system ( cpt 51721-F7); implant LV lead attime of ICD insertion (cpt 79118) I have read, edited and approve of this report: Lalit Mcmahon MD S Cardiac Electrophysiology 07/23/2022 4:22 PM Lalit Mcmahon MD EP PROCEDURE ORDERAB LES * POCT Glucose (07/23/2022 12:54 PM EDT) [facility] Signature Glucose, POC 83 65 - 199 mg/dL [facility] Comment: Supplemental ranges: <140 mg/dL before meals <180 mg/dL all other times of the day Blood 07/23/2022 12:5 4 PM EDT 07/23/2022 12:54 PM EDT Lalit Mcmahon MD POINT OF CARE TEST O RDERABLES Performing Organization Address City/[facility]/ZIP Co de Phone Number [facility] [place] [address] * EKG 12 Lead (07/23/2022 12:33 PM EDT) Ventricular rate 72 BPM MUSE SYSTEM Atrial Rate 72 BPM MUSE SYSTEM P-R Interval 158 ms MUSE SYSTEM QRS Duration 176 ms MUSE SYSTEM Q-T Interval 458 ms MUSE SYSTEM QTC Calculated (Bezet) 501 ms MUSE SYSTEM Calculated P Harris 34 degrees MUSE SYSTEM Calculated R Harris 12 degrees MUSE SYSTEM Calculated T Harris -173 degrees MUSE SYSTEM INTERPRETATION Normal sinus rhythm Left bundle branch block Abnormal ECG No previous ECGs available Confirmed by MD Salome, Lalit ([id number]) on 07/23/2022 1:19:03 PM MUSE SYSTEM 07/23/2022 12:3 3 PM EDT 07/23/2022 1:19 PM EDT Lalit Mcmahon MD ECG ORDERABLES Performing Organization Address [facility]/ZIP Co de Phone Number MUSE SYSTEM * Differential, Automated (07/23/2022 11:55 AM EDT) Neutrophil % 62.6 % [facility] Neutrophil Absolute 4.14 1.70 - 6.10 x10(3)/[facility] Lymph % 27.0 % [facility] Lymphocytes Abs 1.8 0.9 - 3.2 x10(3)/[facility] Monocyte % 7.3 % [facility] Monocyte Abs 0.5 0.3 - 0.9 x10(3)/[facility] Eos % 2.3 % [facility] Eosinophils Abs 0.2 0.0 - 0.4 x10(3)/[facility] Basophil % 0.6 % [facility] Baso Absolute 0.0 0.0 - 0.1 x10(3)/[facility] Immature Gran % 0.20 % [facility] Comment: Immature granulocytes(IG's)percentage and absolute count [...] Lab Lalit Mcmahon MD HEMATOLOGY ORDERABLE S [facility] [address] * Hemogram (07/23/2022 11:55 AM EDT) White Blood Cell 6.6 4.0 - 9.5 x10(3)/[facility] Red Blood Cell 4.50 4.00 - 5.21 x10(6)/[facility] Hemoglobin 13.7 11.7 - 15.5 g/dL [facility] Hematocrit 42.5 35.7 - 45.8 % [facility] Mean Cell Volume 94.4 82.6 - 94.4 fL [facility] Mean Cell Hemoglobin 30.4 27.1 - 32.0 pg [facility] Mean Cell Hemoglobin Concentration 32.2 31.7 - 35.0 g/dL [facility] Platelet 193 145 - 357 x10(3)/[facility] RDW Standard Deviation 45.5 37.0 - 46.0 fL [facility] RDW coefficient of variation 13.2 11.5 - 14.1 % [facility] Mean Platelet Volume 9.5 7.6 - 12.9 fL [facility] NRBC% auto 0.0 % [facility] NRBC Absolute 0.000 0.000 - 0.000 x10(3)/[facility] Blood 07/23/2022 11:5 5 AM EDT 07/23/2022 12:07 PM EDT Narrative Resulting Agency Comment Spec In Lab Lalit Mcmahon MD HEMATOLOGY ORDERABLE S [facility] [place] [address] * (ABNORMAL) BMP w/fasting Glucose (07/23/2022 11:55 AM EDT) Glucose Fasting 110(H) 65 - 99 mg/dL [facility] Comment: ?Fasting* Glucose Interpretive Criteria Normal [...] Urea Nitrogen 23(H) 8 - 18 mg/dL [facility] Creatinine 1.07 0.70 - 1.20 mg/dL [facility] Sodium 141 135 - 145 mmol/L [facility] Potassium 4.8 3.5 - 5.0 mmol/L [facility] Comment: Please note: ??Patients with WBC >100,000 may have falsely elevated Potassium levels. ??For accurate Potassium quantification in these patients send serum separator tube (gold top) for subsequent determinations. ??Contact the Clinical Chemistry Laboratory if there are any questions. Chloride 106 98 - 107 mmol/L [facility] Carbon Dioxide 26 22 - 31 mmol/L [facility] Anion Gap 9 5 - 15 mmol/L [facility] Calcium 9.7 8.5 - 10.5 mg/dL [facility] Est Glomerular Filtration Rate 55(L) >=60 mL/min/1. 73 m?? [facility] Comment: This patient's estimated [...] Mcmahon MD CHEMISTRY ORDERABLES Performing Organization Address [facility] Co de Phone Number [facility] [place] [address] * Prothrombin Time (07/23/2022 11:55 AM EDT) Prothrombin Time 11.7 9.4 - 12.5 sec [facility] International Normalization Ratio 1.0 [facility] Comment: An INR <2.0 indicates adequate [...] ORDERABLE S Performing Organization Address City/[facility] Co de Phone Number [facility] [place] [address] documented in this encounter Visit Diagnoses Diagnosis HFrEF (heart failure with reduced ejection fraction)- Primary Left bundle branch block Other left bundle branch block Nonischemic cardiomyopathy Other primary cardiomyopathies Cardiac resynchronization therapy defibrillator (WINDOWS SERVER SPECIALIST-D) in place Left bundle branch block [...] Routine documented in this encounter Care Teams Fender Finisher Relationship Specialty Start Date End Date Lolly Oliveira MD [address] [place] [address] PCP - General 07/17/13 documented as of this encounter
--- OUTSIDE RECORDS SUMMARY | 2024-03-22 10:55 | XMS_ITS | Encounter Summary ---
[place] [address] Care Team Providers Care Dental Tech Name Role Phone Lolly Oilveira MD Primary Care Provider [phone] Encounter Details Date Type Department Care Team [...] AM EST Hospital Encounter Non[place] [address] Arrived documented as of this encounter Visit Diagnoses Not on filedocumented in this encounter Care Teams Dental Tech Relationship Specialty Start Date End Date Lolly Oliveira MD [address] [place] [address] PCP - General 07/17/13 documented as of this encounter
--- OUTSIDE RECORDS SUMMARY | 2024-03-22 10:55 | XMS_ITS | Encounter Summary ---
Author Organization [facility] [place] [address] Care Team Providers Care Shell Sorter Name Role Phone Lolly Oliveira MD Primary Care Provider [phone] Reason for Visit * Reason Comments Follow-up Encounter Details Date Type Department Care Team (Late st Contact Info) Description 05/21/2022 8:00 AM EDT Office Visit Dermatology at [address] [phone] Clay Ramírez MD [address] [facility] [place] [address] Psoriasis, guttate Social History Tobacco Use Types [...] [facility] Hospital Encounter Non[place] [address] Arrived documented as of this encounter Visit Diagnoses Diagnosis Psoriasis, guttate Other psoriasis documented in this encounter Care Teams Shell Sorter Relationship Specialty Start Date End Date Lolly Oliveira MD [address] [place] [address] PCP - General 07/17/13 documented as of this encounter
--- OUTSIDE RECORDS SUMMARY | 2024-03-22 10:55 | XMS_ITS | Encounter Summary ---
[place] [address] Care Team Providers Care Director Drug Safety Name Role Phone Lolly Oliveira MD Primary Care Provider [phone] Encounter Details Date Type Department Care Team [...] filedocumented in this encounter Care Teams Director Drug Safety Relationship Specialty Start Date End Date Lolly Oliveira MD [address] [place] [address] PCP - General 07/17/13 documented as of this encounter
--- OUTSIDE RECORDS SUMMARY | 2024-03-22 10:55 | XMS_ITS | Encounter Summary ---
[place] [address] Care Team Providers Care Glue Bone Drier Name Role Phone Lolly Oliveira MD Primary Care Provider Encounter Details Date Type Department Care Team (Late st Contact Info) Description 07/17/2013 [place] [id number] Lolly Oliveira MD [address] [place], [place] [id number] Social History Tobacco Use Types Packs/Day Years [...] Hospital Encounter Non-[place] [phone] Arrived documented as of this encounter Procedures [...] OUTSIDE MAMMOGRAMS (PERFORMED ON 07/06/13 AND 07/14/13) [facility] DATED 07/17/13: DIAGNOSTIC IMAGING SUMMARY: RIGHT BREAST [...] filedocumented in this encounter Care Teams Glue Bone Drier Relationship Specialty Start Date End Date Lolly Oliveira MD [address] [place] [address] PCP - General 07/17/13 documented as of this encounter
--- OUTSIDE RECORDS SUMMARY | 2024-03-22 10:55 | XMS_ITS | Encounter Summary ---
Author Organization [facility] [place] [address] Care Team Providers Care Edge Drummer Name Role Phone Lolly Oliveira MD Primary Care Provider [phone] Reason for Visit * Reason Comments Skin Check Encounter Details Date Type Department Care Team (Late st Contact Info) Description 11/23/2014 10:00 AM EDT Office Visit Dermatology at [address] [phone] Clay Ramírez MD [address] [facility] [place] [address] Dermatofibroma; Nevus; Solar lentigo Discharge Disposition: Home [...] MEDICAL CENTER Hospital Encounter Non[place] [address] Arrived documented as of this encounter Visit Diagnoses Diagnosis Dermatofibroma Benign neoplasm of skin, site unspecified Nevus Benign neoplasm of skin, site unspecified Solar lentigo Other dyschromia documented in this encounter Care Teams Edge Drummer Relationship Specialty Start Date End Date Lolly Oliveira MD [address] [place] [address] PCP - General 07/17/13 documented as of this encounter
--- OUTSIDE RECORDS SUMMARY | 2024-03-22 10:55 | XMS_ITS | Encounter Summary ---
Author Organization [facility] [place] [address] Care Team Providers Care Feeder Associate Name Role Phone Unavailable Primary Care Provider Unavailabl e Encounter Details Date Type Department Care Team (Late st Contact Info) Description 07/14/2013 External Results XRay at [address] [place] [address] Provider, Scanning Social History Tobacco Use Types [...] Hospital Encounter Non-Invasive Cardiology Lab [facility] [place] [address] Arrived documented as of this encounter Procedures [...]
--- OUTSIDE RECORDS SUMMARY | 2024-03-22 10:55 | XMS_ITS | Encounter Summary ---
Author Organization [facility] Address [facility] [place] [address] Care Team Providers Care Steam Blocker Name Role Phone Lolly Oliveira MD [...] MD [facility] [place] [address] [facility] Referral ID Status Reason Start Date Expiration Date Visits Re quested Visits Authorized [id number] 1 1 Encounter Details Date Type Department Care Team (Latest Contact Info) Description 07/23/2022 11:39 AM EDT - 07/24/2022 10:23 AM EDT [place] [id number] Lalit Mcmahon MD [facility] [place] [address] Left bundle branch block; Nonischemic cardiomyopathy; Cardiac resynchronization therapy defibrillator (AGRICULTURAL ENGINEERING TECHNICIAN-D) in place Discharge Disposition: Home Social [...] Luna Mott Patient Age: 71 y.o. Language: Moroccan Race: White Ethnicity: Not nor Admit date: 07/23/2022 Discharge date and time: 07/24/22 Attending Physician: Lalit Mcmahon MD Discharge Physician: Lalit Mcmahon MD Follow-up Recommendations for Providers: - s/p AGRICULTURAL ENGINEERING TECHNICIAN-D implant - post implant QRS 130 [...] Solar lentigo Operations/Major Procedures: 07/23/22: [facility] AGRICULTURAL ENGINEERING TECHNICIAN-D implant History of Presentation: 71 y.o. female with a history of HFrEF, LBBB, QRS >150, NYHA II who is POD#1 of AGRICULTURAL ENGINEERING TECHNICIAN-D implant ([employer]). Hospital Course: Elective admission for AGRICULTURAL ENGINEERING TECHNICIAN-D implant Admitted post-implant for pain management, [...] (heart failure with reduced ejection fraction) [I50.20] AGRICULTURAL ENGINEERING TECHNICIAN-D implant Admission Condition: good Indication for [...] g Refills: 3 fluticasone propionate 50 mcg/actuation [place], Suspension Commonly known as: Flonase 1 spray [...] the incision. Make sure to use a wire weaver cloth (such as a towel) in between [...] F. The office scheduling phone number is [phone]. ARM MOVEMENT RESTRICTIONS POST-IMPLANT - Do not [...] please call the Cardiac ElectrophysiologyTriage Nurse at [phone], option 3. General Instructions None Discharge References/Attachments None Lalit Mcmahon MD S Cardiac Electrophysiology 07/24/2022 12:33 PM documented in this encounter Discharge Instructions * Patient Instructions* Fadi Nunez MD - 07/24/2022 8:10 AM EDT FINAL ICD/PACEMAKER RECOMMENDATIONS: 1. Standard post implant discharge instructions (see below): 2. Medications as listed above. You may use ice packs over the incision. Make sure to use a wire weaver cloth (such as a towel) in between [...] F. The office scheduling phone number is [phone]. ARM MOVEMENT RESTRICTIONS POST-IMPLANT - Do not [...] please call the Cardiac ElectrophysiologyTriage Nurse at [phone], option 3. documented in this encounter Medications [...] with spacer fluticasone propionate (Flonase) 50 mcg/actuation [place], Suspension 1 spray by Each Nare route [...] Cardiac Electrophysiology Post-Implant Device Interrogation Luna Mott [id number] 07/24/2022 History: Luna Mott is a 71 y.o. female with a history of HFrEF, LBBB, QRS >150, NYHA II who is POD#1 of AGRICULTURAL ENGINEERING TECHNICIAN-D implant ([employer]). Overall feels well this morning. Ready [...] WOB Neuro- A&Ox3 Device Interrogation: Data ?? Attendance Secretary Model # Serial # Generator [employer] [id number] Atrial Lead [employer] [id number] RV Lead [employer] [id number] LV Lead [employer] [id number] ?? Diagnostics Pacing Mode: DDD 60-130 Underlying Rhythm: Tribune Atrial Episodes: None Ventricular Episodes: None FINAL PROGRAMMING: Pacing: Mode Lower rate (ppm) Upper rate (ppm) ?? DDD 60 130 VF: Rate (bpm) #Antitachycardia pacing First shock energy (J) ?? 200 Quick convert 41 VT: 170 Monitor only Monitor only ? Battery and Leads Impedances (ohms) Sensing (mV) Thresholds HV RA RV LV RA RV LV RA RV LV 73 589 370 4490 (LVa) 7.7 13.1 >25 0.4V @ 0.4 ms 0.4V @ 0.4 ms 0.5 V @ 1.0 ms POD#1 CXR: All leads in nominal positioning Impression: 71 y.o. female who is s/p AGRICULTURAL ENGINEERING TECHNICIAN-D implant for LBBB, NYHA II, HFrEF. [...] ([facility]) Fadi Nunez MD 07/24/2022 Pager: [phone] I met with the patient today and [...] agreement. ? Dr. Lalit Mcmahon, electrophysiology attending ([id number]) * Zaria Wright RN - 07/23/2022 8:28 [...] HF, QRS > 150 ms presents for AGRICULTURAL ENGINEERING TECHNICIAN-D placement. ROS: Denies recent fevers or [...] 0.9) flush 5 mL 5 mL Intravenous [id number] ramos MD ??? sodium chloride 0.9 % [...] HF, QRS > 150 ms presents for AGRICULTURAL ENGINEERING TECHNICIAN-D placement. Backup would be LBBAP lead. Antibiotics: cefazolin Rationales for, intended benefits and potential risk of planned procedures reviewed. The patient indicated understanding and agreement with the plan. Informed consent signed. Procedure checklist completed. Fadi Nunez MD Cardiac Electrophysiology Fellow [facility] Pager [phone] 07/23/2022 I met with the patient today [...] agreement. ? Dr. Lalit Mcmahon, electrophysiology attending ([id number]) documented in this encounter Miscellaneous Notes * Brief Op Note - Lalit Mcmahon MD - 07/23/2022 4:04 PM EDT Brief Operative Note Patient Name: Luna Mott : [id number] MR#: [id number] Case Date: 07/23/2022 Surgeon: Surgeon(s) and Role: [...] AM EST Hospital Encounter [place] [address] Arrived Scheduled Orders Name Type Priority Associated Diagnoses Orde r Schedule EKG 12 Lead ECG Routine Cardiac resynchronization therapy defibrillator (AGRICULTURAL ENGINEERING TECHNICIAN-D) in place One Time for 1 [...] (Bezet) 522 ms MUSE SYSTEM Calculated R [place] 78 degrees MUSE SYSTEM Calculated T [place] -71 degrees MUSE SYSTEM INTERPRETATION AV dual-paced [...] questions please contact the health health care / medical job titles that requested your imaging first. ? Electronically signed by: Kwame Vargas MD, [facility] ([phone]), at 07/24/2022 6:43 AM Narrative 07/24/2022 6:43 [...] have questions please contactthe health health care / medical job titles that requested your imaging first. Electronically signed by: Kwame Vargas MD, [facility]([phone]), at 07/24/2022 6:43 AM Lalit Mcmahon MD IMG DX ORDERABLES * ELECTROPHYSIOLOGY PROCEDURE (07/23/2022 1:11 PM EDT) Anatomical Region Laterality Modality Other Narrative 07/23/2022 4:24 PM EDT Table formatting from the original result was not included. BIVENTRICULAR ICD IMPLANTATION Clinical Trials Assistant: Lalit Mcmahon MD Fellow: Fadi Nunez MD [...] lateral branch of the CS in the COMORAN view. This branch was cannulated with a [...] the entire procedure. LEAD AND GENERATOR DATA: Attendance Secretary Model # Serial # Generator [employer] [id number] Atrial Lead [employer] [id number] RV Lead [employer] [id number] LV Lead [employer] [id number] PACE/SENSE DATA: Sensed wave (mV) Threshold (V) [...] (cGycm2) 300 CONCLUSIONS: Successful implantation of a [employer] biventricular ICD for primary prevention and treatment of symptoms related to congestive heart failure. Follow up in EP clinic in 1-2 months. Procedures performed: new ICD system ( cpt 36195-X0); implant LV lead at time of ICD insertion (cpt 08160) I have read, edited and approve of this report: Lalit Mcmahon MD S Cardiac Electrophysiology 07/23/2022 4:22 PM Procedure Note Lalit Mcmahon MD - 07/23/2022 BIVENTRICULAR ICD IMPLANTATION Clinical Trials Assistant: Lalit Mcmahon MD Fellow: Fadi Nunez MD [...] appropriate lateralbranch of the CS in the COMORAN view. This branch was cannulated with a [...] in the entireprocedure. LEAD AND GENERATOR DATA: Attendance Secretary Model # Serial # Generator [employer] [id number] Atrial Lead [employer] [id number] [id number] RV Lead [employer] [id number] [id number] LV Lead [employer] [id number] PACE/SENSE DATA: Sensed wave (mV) Threshold (V) [...] (cGycm2) 300 CONCLUSIONS: Successful implantation of a [employer] biventricular ICD forprimary prevention and treatment of symptoms related to congestive heartfailure. Follow up in EP clinic in 1-2 months. Procedures performed: new ICD system ( cpt 43755-I4); implant LV lead attime of ICD insertion (cpt 42812) I have read, edited and approve of this report: Lalit Mcmahon MD [facility] Cardiac Electrophysiology 07/23/2022 4:22 PM Lalit Mcmahon MD EP PROCEDURE ORDERAB LES * POCT Glucose (07/23/2022 12:54 PM EDT) Glucose, POC 83 65 - 199 mg/dL [facility] Comment: Supplemental ranges: <140 mg/dL before meals <180 mg/dL all other times of the day Blood 07/23/2022 12:5 4 PM EDT 07/23/2022 12:54 PM EDT Lalit Mcmahon MD POINT OF CARE TEST O RDERABLES Performing Organization Address [facility] Co de Phone Number [facility] [place] [address] * EKG 12 Lead (07/23/2022 12:33 PM EDT) Ventricular rate 72 BPM MUSE SYSTEM Atrial Rate 72 BPM MUSE SYSTEM P-R Interval 158 ms MUSE SYSTEM QRS Duration 176 ms MUSE SYSTEM Q-T Interval 458 ms MUSE SYSTEM QTC Calculated (Bezet) 501 ms MUSE SYSTEM Calculated P [place] 34 degrees MUSE SYSTEM Calculated R [place] 12 degrees MUSE SYSTEM Calculated T [place] -173 degrees MUSE SYSTEM INTERPRETATION Normal sinus rhythm Left bundle branch block Abnormal ECG No previous ECGs available Confirmed by MD Salome, Lalit ([id number]) on 07/23/2022 1:19:03 PM MUSE SYSTEM 07/23/2022 12:3 3 PM EDT 07/23/2022 1:19 PM EDT Lalit Mcmahon MD ECG ORDERABLES Performing Organization Address [facility] de Phone Number MUSE SYSTEM * Differential, Automated (07/23/2022 11:55 AM EDT) Neutrophil % 62.6 % [facility] Neutrophil Absolute 4.14 1.70 - 6.10 x10(3)/[facility] Lymph % 27.0 % [facility] Lymphocytes Abs 1.8 0.9 - 3.2 x10(3)/[facility] Monocyte % 7.3 % [facility] Monocyte Abs 0.5 0.3 - 0.9 x10(3)/[facility] Eos % 2.3 % [facility] Eosinophils Abs 0.2 0.0 - 0.4 x10(3)/[facility] Basophil % 0.6 % [facility] Baso Absolute 0.0 0.0 - 0.1 x10(3)/[facility] Immature Gran % 0.20 % [facility] Comment: Immature granulocytes(IG's)percentage and absolute count will include metamyelocytes, myelocytes, and promyelocytes. Blood smears from CBCs yielding IG's will be scanned manually for concordance. If this scan disagrees with the automated IG or if promyelocytes are noted, a manual differential will be performed. Immature Gran Absolute 0.01 0.00 - 0.04 x10(3)/[facility] Blood 07/23/2022 11:5 5 AM EDT 07/23/2022 12:07 PM EDT Narrative Resulting Agency Comment Spec In Lab Lalit Mcmahon MD HEMATOLOGY ORDERABLE S [facility] [place] [address] * Hemogram (07/23/2022 11:55 AM EDT) White Blood Cell 6.6 4.0 - 9.5 x10(3)/[facility] Red Blood Cell 4.50 4.00 - 5.21 x10(6)/[facility] Hemoglobin 13.7 11.7 - 15.5 g/dL [facility] Hematocrit 42.5 35.7 - 45.8 % [facility] Mean Cell Volume 94.4 82.6 - 94.4 fL [facility] Mean Cell Hemoglobin 30.4 27.1 - 32.0 pg [facility] Mean Cell Hemoglobin Concentration 32.2 31.7 - 35.0 g/dL [facility] Platelet 193 145 - 357 x10(3)/[facility] RDW Standard Deviation 45.5 37.0 - 46.0 fL [facility] RDW coefficient of variation 13.2 11.5 - 14.1 % [facility] Mean Platelet Volume 9.5 7.6 - 12.9 fL [facility] NRBC% auto 0.0 % [facility] NRBC Absolute 0.000 0.000 - 0.000 x10(3)/mcL [facility] Blood 07/23/2022 11:5 5 AM EDT 07/23/2022 12:07 PM EDT Narrative Resulting Agency Comment Spec In Lab Lalit Mcmahon MD HEMATOLOGY ORDERABLE S [facility] [address] [place] [address] * (ABNORMAL) BMP w/fasting Glucose (07/23/2022 11:55 AM EDT) Glucose Fasting 110(H) 65 - 99 mg/dL [facility] Comment: ?Fasting* Glucose Interpretive [...] of Diabetes Mellitus, Position Statement from the [place] [employer]. ??Diabetes Care, Volume 33, Supplement 1, Mar 2009 Blood Urea Nitrogen 23(H) 8 - 18 mg/dL [facility] Creatinine 1.07 0.70 - 1.20 mg/dL [facility] Sodium 141 135 - 145 mmol/L [facility] Potassium 4.8 3.5 - 5.0 mmol/L [facility] Comment: Please note: ??Patients with WBC >100,000 may have falsely elevated Potassium levels. ??For accurate Potassium quantification in these patients send serum separator tube (gold top) for subsequent determinations. ??Contact the Clinical Chemistry Laboratory if there are any questions. Chloride 106 98 - 107 mmol/L [facility] Carbon Dioxide 26 22 - 31 mmol/L [facility] Anion Gap 9 5 - 15 mmol/L [facility] Calcium 9.7 8.5 - 10.5 mg/dL [facility] Est Glomerular Filtration Rate 55(L) >=60 mL/min/1. 73 m?? [facility] Comment: This patient's estimated [...] Mcmahon MD CHEMISTRY ORDERABLES Performing Organization Address [facility] Co de Phone Number [facility] [place] [address] * Prothrombin Time (07/23/2022 11:55 AM EDT) Prothrombin Time 11.7 9.4 - 12.5 sec [facility] International Normalization Ratio 1.0 [facility] Comment: An INR <2.0 [...] MD HEMATOLOGY ORDERABLE S Performing Organization Address [facility] Co de Phone Number [facility] [place] [address] documented in this encounter Visit Diagnoses Diagnosis HFrEF (heart failure with reduced ejection fraction)- Primary Left bundle branch block Other left bundle branch block Nonischemic cardiomyopathy Other primary cardiomyopathies Cardiac resynchronization therapy defibrillator (AGRICULTURAL ENGINEERING TECHNICIAN-D) in place Left bundle branch block [...] Routine documented in this encounter Care Teams Steam Blocker Relationship Specialty Start Date End Date Lolly Oliveira MD [address] [place] [address] PCP - General 07/17/13 documented as of this encounter
--- OUTSIDE RECORDS SUMMARY | 2024-03-22 10:55 | XMS_ITS | Encounter Summary ---
[place] [address] Care Team Providers Care Drywall Taper Name Role Phone Lolly Oliveira MD Primary Care Provider [phone] Encounter Details Date Type Department Care Team [...] AM EST Hospital Encounter Non[place] [address] Arrived documented as of this encounter Visit Diagnoses Not on filedocumented in this encounter Care Teams Drywall Taper Relationship Specialty Start Date End Date Lolly Oliveira MD [address] [place] [address] PCP - General 07/17/13 documented as of this encounter
--- OUTSIDE RECORDS SUMMARY | 2024-03-22 10:55 | XMS_ITS | Encounter Summary ---
Author Organization [place] [address] Care Team Providers Care Confectionery Drops Machine Operator Name Role Phone Lolly Oliveira MD Primary Care Provider [phone] Encounter Details Date Type Department Care Team (Latest Contact Info) Description 07/18/2013 [place] [phone] Alia Fraire MD Mammographic microcalcification (Primary Dx) [...] [facility] Hospital Encounter Non-In[place] [phone] Arrived documented as of this encounter Results [...] are present on specimen digital X-ray. A Pro.comrk Eviva-Stereo 13 Cylinder marker clip was placed. [...] calcifications are present on specimendigital X-ray. A Pro.comrk Eviva-Stereo 13 Cylinder marker clip was placed. [...] does not layer and, therefore, are not representative personal service of milk of calcium. Again, these have [...] does not layer and, therefore, are not representative personal service of milk of calcium. Again, these have an amorphous andpunctate appearance and remain indeterminate. Stereotactic guided biopsy isrecommended. Alia Fraire MD IMG MAMMO ORDERABLES documented in this encounter Visit Diagnoses Diagnosis Mammographic microcalcification- Primary Mammographic microcalcification Mammographic microcalcification Mammographic microcalcification Mammographic microcalcification documented in this encounter Care Teams Confectionery Drops Machine Operator Relationship Specialty Start Date End Date Lolly Oliveira MD [address] [place] [address] PCP - General 07/17/13 documented as of this encounter
--- OUTSIDE RECORDS SUMMARY | 2024-03-22 10:55 | XMS_ITS | Encounter Summary ---
Author Organization [facility] [place] [address] Care Team Providers Care Manager Of Customer Billing Name Role Phone Lolly Oliveira MD Primary Care Provider [phone] Reason for Referral * Diagnostic Test (Routine) - Closed Specialty Diagnoses / Procedures Referred By Contac t Referred To Contact Radiology Diagnoses Left bundle branch block Nonischemic cardiomyopathy Procedures MRI Cardiac Morphology Function With Flow Velocity Quantification [facility] Contrast MRI Cardiac Morphology Function wwo Contrast Lalit Mcmahon MD [facility] [place] [address] [place] [address] Referral ID Status Reason Start Date Expiration Date V isits Requested Visits Authorized [id number] Closed Specialty Service Requested 05/06/2022 11/07/2023 2 1 Reason for Visit * Diagnostic Test (Routine) - Closed Specialty Diagnoses / Procedures Referred By Contac t Referred To Contact Radiology Diagnoses Left bundle branch block Nonischemic cardiomyopathy Procedures MRI Cardiac Morphology Function With Flow Velocity Quantification o Contrast MRI Cardiac Morphology Function wwo Contrast Lalit Mcmahon MD [facility] [place] [address] [place] [address] Referral ID Status Reason Start Date Expiration Date V isits Requested Visits Authorized [id number] Closed Specialty Service Requested 05/06/2022 11/07/2023 2 1 Encounter Details Date Type Department Care Team (Latest Contact Info) Description 07/14/2022 9:08 AM EDT Hospital Encounter MRI at [facility] [place] [address] Lalit Mcmahon MD [facility] [address] [place] [address] Left bundle branch block; Nonischemic cardiomyopathy Discharge [...] with spacer fluticasone propionate (Flonase) 50 mcg/actuation [place], Suspension 1 spray by Each Nare route [...] [address] [facility] [address] Female [phone] (home) No relevant phone numbers on file. Lolly Oliveira MD None Allergies Allergen Reactions ??? Sulfa (Sulfonamide Antibiotics) Date/Time of call: July 07, 2022/11:03 AM/ PREVIOUS MRI SCAN? HEIGHT: WEIGHT: SCHEDULED SCAN: MRI CARDIAC MORPHOLOGY FUNCTION WITH FLOW VELOCITY QUANTIFICATION WWO CONTRAST [[id number]] Order Questions Answers Where will study be performed? [facility] Radiology [120] SUBJECTIVE: Very Claustrophobic [...] ( [place] ) You must have a parcel post truck driver present when you check in. This patient has been informed that they require a parcel post truck driver to drive them home after this procedure. In the absence of a parcel post truck driver, IR will not be able to sedate for your scan. Pt verbalized understanding of these instructions during the pre-procedure education via phone. Yes Name of parcel post truck driver: Daughter Phone number: PRIOR SCAN DATE/S SEDATION TYPE SUCCESSFUL 07/14/22 MRI Cardiac Morphology Function with Flow Velocity Quantification wwo Contrast Ativan 1mg x 1 dose Pass Revised 08/03/17 documented in this encounter Plan of Treatment Upcoming Encounters Date Type Department Care Team (Late st Contact Info) Description 04/15/2024 10:00 AM [facility] Hospital Encounter Non-[place] [address] Arrived documented as of this encounter Procedures [...] have questions please contact the health care management assistant that requested your imaging first. ? [...] abnormalities of the visualized organs. Procedure Note Gryeson Herron MD - 07/15/2022 EXAMINATION: MRI CARDIAC [...] who have questions please contactthe health care management assistant that requested your imaging first. Lalit [...] in this encounter Care Teams Manager Of Customer Billing Relationship Specialty Start Date End Date Lolly Oliveira MD [address] [place] [address] PCP - General 07/17/13 documented as of this encounter
--- OUTSIDE RECORDS SUMMARY | 2024-03-22 10:55 | XMS_ITS | Encounter Summary ---
Author Organization [facility] [place] [address] Care Team Providers Care Search Engine Optimization Strategist Name Role Phone Unavailable Primary Care Provider Unavailabl e Encounter Details Date Type Department Care Team (Late st Contact Info) Description 07/14/2013 [place] [phone] Eleno Christian MD Social History Tobacco Use [...] AM EST Hospital Encounter Non-[place] [address] Arrived documented as of this encounter Visit Diagnoses Not on filedocumented in this encounter
--- OUTSIDE RECORDS SUMMARY | 2024-03-22 10:55 | XMS_ITS | Encounter Summary ---
Author Organization [facility] [place] [address] Care Team Providers Care Bods Developer Name Role Phone Lolly Oliveira MD Primary Care Provider Encounter Details Date Type Department Care Team (Late Contact Info) Description 01/14/2022 Telephone Dermatology at [address] [address] Nora Meredith LPN Social History [...] return to phototherapy. New order sent to [facility]. Reviewed with patient Dr. Mar recommendation. She agrees with plan of care. Advised patient order will be sent to [facility]. She voiced understanding. documented in this encounter Plan of Treatment Upcoming Encounters Date Type Department Care Team (Late Contact Info) Description 04/15/2024 10:00 AM EST Hospital Encounter Non-Invasive [place] [address] Arrived documented as of this encounter Visit Diagnoses Not on filedocumented in this encounter Care Teams Bods Developer Relationship Specialty Start Date End Date Lolly Oliveira MD [address] [place] [address] PCP - General 07/17/13 documented as of this encounter
--- OUTSIDE RECORDS SUMMARY | 2024-03-22 10:55 | XMS_ITS | Encounter Summary ---
Author Organization [facility] [place] [address] Care Team Providers Care Dark Room Attendant Name Role Phone Lolly Oliveira MD Primary Care Provider [phone] Reason for Visit * Reason Comments Psoriasis Encounter Details Date Type Department Care Team (Late st Contact Info) Description 04/09/2022 1:45 PM EST Office Visit Dermatology at [address] [address] Clay Ramírez MD [address] [facility] [place] [address] Psoriasis, guttate Social History Tobacco Use Types [...] EST Hospital Encounter Non-Invasive [place] [address] Arrived documented as of this encounter Visit Diagnoses Diagnosis Psoriasis, guttate Other psoriasis documented in this encounter Care Teams Dark Room Attendant Relationship Specialty Start Date End Date Lolly Oliveira MD [address] [place] [address] PCP - General 07/17/13 documented as of this encounter
--- OUTSIDE RECORDS SUMMARY | 2024-03-22 10:55 | XMS_ITS | Encounter Summary ---
Author Organization [facility] [address] Care Team Providers Care Production Estimator Name Role Phone Lolly Oliveira MD Primary Care Provider [phone] Reason for Visit * Reason Onset Date Comments Pre Procedure Call 07/01/2022 Encounter Details Date Type Department Care Team (Late st Contact Info) Description 07/01/2022 Telephone Cardiology at [address] [phone] Rosenda Sutton RN Pre Procedure Call Social History Tobacco Use Types Packs/Day Years Used Date Smoking Tobacco: Never Sex and Gender Information Value Date Recorded Sex Assigned at Not on file Gender Identity Not on file Sexual Orientation Not on file documented as of this encounter Miscellaneous Notes * Telephone Encounter - Rosenda Sutton RN - 07/01/2022 9:30 AM EDTSummary: Pre Procedure Call: PROJECT MANAGER INDUSTRIAL implant EP EXPERIMENTAL BOX TESTER COORDINATION CHECKLIST Patient Name: Luna Mott Patient Performing Chemistry Teacher: Lalit Mcmahon Referring Provider: Lolly Oliveira Date of Procedure: 07/23/22 Arrival Time/ Case Time: 12:00 pm / 1:00 pm Check In Location: Truck Body Repairer Desk 4W Date Patient was Called: 07/01/22 Procedure: PROJECT MANAGER INDUSTRIAL Company: [employer] Type: PROJECT MANAGER INDUSTRIAL-D Laterality: LEFT Orders: Yes Lab Orders: Yes [...] overnight , understands that they will need hole digger truck driver on day of discharge Notified pt that Goff catheter may be placed on day of procedure depending on type & duration of case. documented in this encounter Plan of Treatment Upcoming Encounters Date Type Department Care Team (Late st Contact Info) Description 04/15/2024 10:00 AM [facility] Hospital Encounter [place] [address] Arrived documented as of this encounter Visit Diagnoses Not on filedocumented in this encounter Care Teams Production Estimator Relationship Specialty Start Date End Date Lolly Oliveira MD [address] [place] [address] PCP - General 07/17/13 documented as of this encounter
--- OUTSIDE RECORDS SUMMARY | 2024-03-22 10:55 | XMS_ITS | Encounter Summary ---
[place] [address] Care Team Providers Care Occ Therapy Asst Name Role Phone Lolly Oliveira MD Primary Care Provider [phone] Encounter Details Date Type Department Care Team (Late st Contact Info) Description 04/09/2022 Refill Dermatology at [address] [address] Nora Meredith, CERTIFIED PEDIATRIC NURSE PRACTITIONER Social History Tobacco Use Types Packs/Day Years Used Date Smoking Tobacco: Never Sex and Gender Information Value Date Recorded Sex Assigned at Not on file Gender Identity Not on file Sexual Orientation Not on file documented as of this encounter Plan of Treatment Upcoming Encounters Date Type Department Care Team (Late st Contact Info) Description 04/15/2024 10:00 AM [facility] Hospital Encounter [place] [address] Arrived documented as of this encounter Visit Diagnoses Not on filedocumented in this encounter Care Teams Occ Therapy Asst Relationship Specialty Start Date End Date Lolly Oliveira MD [address] [place] [address] PCP - General 07/17/13 documented as of this encounter
[2024-03-24 11:10] VITALS: BP 161/76; PULSE 75
--- OUTSIDE RECORDS SUMMARY | 2024-03-24 11:52 | XMS_ITS | Encounter Summary ---
Author Organization [facility] Address [address] [place] [address] Care Team Providers Care Flooring Sales Manager Name Role Phone Lolly Oliveira MD Primary Care Provider [phone] Encounter Details Date Type Department Care Team (Late st Contact Info) Description 11/13/2020 Lab Requisition [facility] Pathology & Laboratory Medicine - [address] [address] Outr Resulting Lab, Provider Social History Tobacco [...] - GENER AL ORDERABLES Final Result [facility] [address] [place] [address] * COVID-19 TESTING (11/13/2020 7:30 EDT) COVID-19 rt-PCR Result Negative Negative 11/14/2020 11:46 EDT [facility] Comment: This test [...] performed using the med SARS-CoV-2 assay ([employer] on the Med 6800 System Performing Lab Emd [address] [facility] Lab 11/14/2020 11:46 EDT [facility] Swab 11/13/2020 7:30 EDT 11/13/2020 20:57 EDT us Provider Outr Resulting Lab MICROBIOLOGY - GENER AL ORDERABLES Final Result Performing Organization Address [facility] Co de Phone Number [facility] [address] [place] [address] documented in this encounter Visit Diagnoses Not on filedocumented in this encounter Care Teams Flooring Sales Manager Relationship Specialty Start Date End Date Lolly Oliveira MD [address] [place] [address] PCP - General 11/13/08 documented as of this encounter
--- OUTSIDE RECORDS SUMMARY | 2024-03-24 11:52 | XMS_ITS | Encounter Summary ---
Author Organization [facility] Address [address] [place] [address] Care Team Providers Care Case Manager Specialist Name Role Phone Lolly Oliveira MD Primary Care Provider [phone] Encounter Details Date Type Department Care Team (Late st Contact Info) Description 05/02/2004 Results Only [facility] conversion [address] [place] [address] Lolly Oliveira MD [address] [place], [place] [id number] Social History Tobacco Use Types Packs/Day Years [...] [facility]. [facility] Report Status Final [id number] [facility] 05/02/2004 9:32 EST 05/10/2004 9:32 EST us Lolly Oliveira MD MICROBIOLOGY - GENERAL ORDERABL ES Final Result [facility] [address] [place] [address] * CYTOPATHOLOGY (05/02/2004 0:00 EST) Pathology Report: CYTOPATHOLOGY REPORT Reports generated via electronic interface contain original data; however they are lacking the format of the original report. Caution should be taken when reading/interpreti ng unformatted reports. Name: ? JING ALVARENGA ? Accession #: ? [id number] : ? 1950 (Age: 53) ??F ?Collect [...] ORDERABLES Final Resu lt Performing Organization Address City/State/[facility] Co de Phone Number [facility] [address] [place] [address] documented in this encounter Visit Diagnoses Not on filedocumented in this encounter Care Teams Case Manager Specialist Relationship Specialty Start Date End Date Lolly Oliveira MD [address] [place] [address] PCP - General 11/13/08 documented as of this encounter
--- OUTSIDE RECORDS SUMMARY | 2024-03-24 11:52 | XMS_ITS | Encounter Summary ---
Author Organization [facility] Address [address] [place] [address] Care Team Providers Care Conveyor Belt Installer Name Role Phone Lolly Oliveira MD Primary Care Provider [phone] Encounter Details Date Type Department Care Team (Late st Contact Info) Description 04/12/[address] [facility] conversion [address] [place] [address] Lolly Oliveira MD [address] [place], [place] [id number] Social History Tobacco Use Types Packs/Day Years [...] ? JING ALVARENGA ? Accession #: ? [id number] : ? 1950 (Age: 56) ??F ?Collect Date: ? 04/12/2007 Location: ? [facility] ? Receive Date: ? 04/13/2007 Provider: ?LOLLY OLIVEIRA MD Copy to: ? Specimen/Source: ?ThinPrep Pap Test, Cervix/Endocervix, processed on [employer] ThinPrep Imaging System, with manual evaluation Last [...] ORDERABLES Final Resu lt [facility] [address] [place] [address] documented in this encounter Visit Diagnoses Not on filedocumented in this encounter Care Teams Conveyor Belt Installer Relationship Specialty Start Date End Date Lolly Oliveira MD [address] [place] [address] PCP - General 11/13/08 documented as of this encounter
--- OUTSIDE RECORDS SUMMARY | 2024-03-24 11:52 | XMS_ITS | Data Portability ---
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 Travel Alone On Buses Or Taxis, Or Drive Your Own Car?) Yes [email or web address] Information not available 05/21/2023 Can You Go Shopping For Groceries Or Clothes Without Someone? s Help? Yes Information not available 05/21/2023 Can You Prepare Your Own Meals? Yes [email or web address] Information not available 05/21/2023 Can You Do Your Housework Without Help? Yes [email or web address] Information not available 05/21/2023 Because Of Any Health Problems, Do You Need The Help Of Another Person With Your Personal Care Needs Such As Eating, Bathing, Dressing, Or Getting Around The House? No Information not available 05/21/2023 Can You Handle Your Own Money Without Help? Yes [email or web address] Information not available 05/21/2023 Are You Having Difficulties Driving Your Car? No [email or web address] Information no t available 05/21/2023 Do You Always Fasten Your Seat Belt When You Are In A Car? Yes- Usually [email or web address] Information not available 05/21/2023 How Often During The Past Four Weeks Have You Been Bothered By Any Of The Following Problems? Falling Or Dizzy When Standing Up? Never [email or web address] Information not available 05/21/2023 Sexual Problems? Never Informat ion not available 05/21/2023 Trouble Eating Well? Sometimes [email or web address] Information not available 05/21/2023 Teeth Or Denture Problems? Sometimes umiwvzhy06 Information not available 05/21/2023 Problems Using The Telephone? Never [email or web address] Information not available 05/21/2023 Tiredness Or Fatigue? Sometimes [email or web address] Information not available 05/21/2023 Have You Had 2 Or More Falls Or Sustained An Injury With A Fall In The Last Year? No [email or web address] Information no t available 05/21/2023 Do You Have Difficulty With Walking Or Balance? No [email or web address] Information not available 05/21/2023 Do You Currently Use A Hearing Device? No [email or web address] Information not available 05/21/2023 Do You Currently Have Any Trouble With Your Vision? Yes [email or web address] Information no t available 05/21/2023 Do You Exercise For About 20 Minutes Three Or More Days A Week? Yes- Most Of The Time ewvzkazh67 Information not available 05/21/2023 Are There Any Safety Concerns In Your Home (see Attached [facility] Pamphlet)? No [email or web address] Information not available 05/21/2023 How Often Do You Have Trouble Taking Medicines The Way You Have Been Told To Take Them? I Always Take Them As Prescribed [email or web address] Information not available 05/21/2023 How Confident Are You That You Can Control And Manage Most Of Your Health Problems? Very Confident [email or web address] Information not available 05/21/2023 Do You Currently Have Any Difficulty With Your Hearing? No [email or web address] Information not available 05/21/2023 Date Of Most Recent SBINS 05/21/2023 [email or web address] Information not available 05/21/2023 What Was The Date Of Your Most Recent Tobacco Screening? 09/01/2023 Information not available 09/01/2023 Has Tobacco Cessation Counseling Been Provided? Yes Information not available 09/01/2023 On What Date Was Tobacco Cessation Counseling Provided? 09/01/2023 Information not available 09/01/2023 Do You Or Have You Ever Used Any Other Forms Of Tobacco Or Nicotine? No [email or web address] Information not available 05/21/2023 Sex: Female Functional [...] preservative free, adsorbed 9 completed Not Available [facility] 01/15/2023 04:53:39 Tdap 8 completed Not Available [facility] 01/15/2023 04:53:39 zoster live 3 completed Not Available [facility] 01/15/2023 04:53:40 Pneumococcal conjugate PCV 13 6 completed Not Available [facility] 01/15/2023 04:53:40 Influenza, high-dose, trivalent, PF 8 completed Not Available [facility] 01/15/2023 04:53:41 Td(adult) unspecified formulation 3 completed Not Available [facility] 01/15/2023 04:53:41 Influenza, split virus, trivalent, preservative 6 completed Not Available [facility] 01/15/2023 04:53:41 Influenza, split virus, trivalent, preservative 5 completed Not Available [facility] 01/15/2023 04:53:41 Influenza, split virus, quadrivalent, PF 9 completed Not Available [facility] 01/15/2023 04:53:41 zoster recombinant 9 completed Not Available [facility] 01/15/2023 04:53:42 zoster recombinant 8 completed Not Available [facility] 01/15/2023 04:53:42 Influenza, high-dose, quadrivalent, PF 1 completed Not Available [facility] 01/15/2023 04:53:43 Influenza, high-dose, quadrivalent, PF 0 completed Not Available [facility] 01/15/2023 04:53:43 Influenza, high-dose, quadrivalent, PF 2 completed Not Available [facility] 01/15/2023 04:53:43 COVID-19, mRNA, LNP-S, PF, 100 mcg/0.5mL dose or 50 mcg/0.25mL dose 2 completed Not Available [facility] 01/15/2023 04:53:43 COVID-19 vaccine, vector-nr, rS-Ad26, PF, 0.5 mL 1 completed Not Available [facility] 01/15/2023 04:53:44 SARS-COV-2 (COVID-19) vaccine, UNSPECIFIED 1 completed Not Available [facility] 01/15/2023 04:53:44 SARS-COV-2 (COVID-19) vaccine, UNSPECIFIED 1 completed Not Available [facility] 01/15/2023 04:53:44 pneumococcal polysaccharide PPV23 5 completed Not Available [facility] 01/15/2023 04:53:45 Hep B, unspecified formulation 4 completed Not Available [facility] 01/15/2023 04:53:45 Hep B, unspecified formulation 3 completed Not Available [facility] 01/15/2023 04:53:46 Hep B, unspecified formulation 3 completed Not Available [facility] 01/15/2023 04:53:46 influenza, unspecified formulation 0 completed Not Available [facility] 01/15/2023 04:53:47 influenza, unspecified formulation 3 completed Not Available [facility] 01/15/2023 04:53:47 influenza, unspecified formulation 9 completed Not Available [facility] 01/15/2023 04:53:47 influenza, unspecified formulation 1 completed Not Available [facility] 01/15/2023 04:53:47 influenza, unspecified formulation 7 completed Not Available [facility] 01/15/2023 04:53:48 influenza, unspecified formulation 4 completed Not Available [facility] 01/15/2023 04:53:48 influenza, unspecified formulation 8 completed Not Available [facility] 01/15/2023 04:53:48 influenza, unspecified formulation 2 completed Not Available [facility] 01/15/2023 04:53:48 Influenza, high-dose, quadrivalent, PF 3 completed Not Available [facility] 03/19/2023 05:33:03 COVID-19, mRNA, LNP-S, PF, herminio-sucrose, 30 mcg/0.3 mL 3 completed Not Available [facility] 03/19/2023 05:33:03 COVID-19, mRNA, LNP-S, bivalent, PF, 50 mcg/0.5 mL or 25mcg/0.25 mL dose 4 completed DENYS Bauer, [facility] 12/20/2023 15:23:33 Respiratory syncytial virus (RSV) vaccine, unspecified 4 completed DENYS Bauer, [facility] 12/20/2023 15:24:29 influenza, unspecified formulation 4 completed DENYS Bauer, [facility] 12/20/2023 15:25:14 Past Encounters Encounter ID Performer Location Encounter Start Date Encounter Closed Date Diagnosis/Indication Diagnosis SNOMED-CT Code Diagnosis ICD10 Code Diagnosis Note [id number] LOLLY CORTEZ MD [facility] [address] [place] [address] 05/21/2023 10:03:54 05/21/2023 11:37:49 Onychomycosis 792332242 B35.1 There is bothering her more, more difficult to trim her toenails. She also has a callus that she would like looked with podiatry. Asthma 099926453 J45.90 9 Rare use of albuterol, she will continue the same Cardiomyopathy 95163291 I10 Clinically remaining stable, has had significan [...] well-contr olled. Disorder of hip joint 42 4365312 M12.859 Doing well status post now bilateral total hip replacemen ts. 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 She is working on exercises in addition to walking. Mammo will be due in the fall. Up-to-date with colonoscop y. [id number] [address],[facility] [address] [place] [address] 09/01/2023 10:23:16 09/01/2023 13:28:10 Vertigo 743481194 R42 Patient has been experienci ng vertigo [...] on. Impacted c erumen of bilateral ears [id number] 472522 H61.23 Ear lavage performed with complete resolution and no signs of infection. [id number] LOLLY CORTEZ MD [address] [address] 11/26/2023 07:26:08 11/26/2023 08:10:59 Screening mammography 28517587 Z12.31 Adjustment disorder 1722 6007 F43.20 , Still grieving the loss of her about a year and a half ago. She still finds it hard being in the house alone. Her kids and grandkids have been with a good visiting regularly which she appreciate s. Asthma 227659538 J45.90 9 Rare use of albuterol, she will continue the same Essential hypertension 93484166 I10 Under reasonably good control, see cardiomyop athy below Guttate psoriasis 231172 00 L40.4 , Following dermatolog y. Will be starting photothera py in addition to the clobetasol once the colder weather arrives. Has been just trying to get some sun exposure on her skin over the summer. Currently psoriasis is not too bad Cardiomyopathy 17696409 I10 Clinically remaining stable, has had significan [...] okay continuing to take it. Up-to-date with [facility]. Creatinine remains a little elevated as is BUN, although these have improved. Encouraged increased fluid intake Hyperlipidemia 83408262 E78.5 on rosuvastat in, lipids well-contr olled, normal LFTs Prediabetes 585920460 R7 3.03 And obesity. A1c 5.9, This [...] continue doing that. She has met with [facility]. Health Concerns Section Related Observation LastModified by Organization Detai ls LastModified Time None Recorded Concern Status LastModified by Organization Details LastModified Time None Recorded Advance Directives Directive None Recorded Payers Encounter Date Sequence Insurance Name Policy Number Policy Lema Covered Member ID Lema Member ID Guarantor Name 05/21/2023 1 [place]ANT[place] - [place]PO) [id number] Luna Barber LunaRiner [id number] Luna Lunaslin 09/01/2023 1 [place] - [place]) [id number] Luna Lunaslin [id number] Luna Lunaslin 11/26/2023 1 [place] - [place]) [id number] Luna Lunaslin [id number] Luna Mott Notes Date Note Type Note Provider Name and Address Organization Details Recorded Time 05/21/2023 text/html Thais here today for an annual wellness exam LOLLY CORTEZ MD [address], [place], [address], [facility]. 05/24/2023 18:32:35 09/01/2023 text/html [...] it. JESSICA INGRAM PA-C [address], [place], [address], [facility]. 09/01/2023 13:55:07 11/26/2023 text/html Thais here today for follow-up of cardiomyopathy, obesity LOLLY CORTEZ MD [address], [place], [address], [facility]. 11/28/2023 09:26:44 OBGyn Episode No OBEpisode recorded.
--- OUTSIDE RECORDS SUMMARY | 2024-03-24 11:52 | XMS_ITS | Encounter Summary ---
Author Organization [facility] Address [address] [place] [address] Care Team Providers Care It Project Coordinator Name Role Phone Lolly Oliveira MD Primary Care Provider [phone] Encounter Details Date Type Department Care Team (Late st Contact Info) Description 04/17/2005 Results Only [facility] conversion [address] [place] [address] Lolly Oliveira MD [address] [place], [place] [id number] Social History Tobacco Use Types Packs/Day Years [...] ? JING ALVARENGA ? Accession #: ? [id number] : ? 1950 (Age: 54) ??F ?Collect Date: ? 04/17/2005 Location: ? [facility] ? Receive Date: ? 04/21/2005 Provider: ?LOLLY OLIVEIRA MD Copy to: ? Specimen/Source: ?ThinPrep Pap Test, Cervix/Endocervix, processed on Nonpareil ThinPrep Imaging System, with manual evaluation Last [...] Final Resu lt [facility] [address] [place] [address] documented in this encounter Visit Diagnoses Not on filedocumented in this encounter Care Teams It Project Coordinator Relationship Specialty Start Date End Date Lolly Oliveira MD [address] [place] [address] PCP - General 11/13/08 documented as of this encounter
--- OUTSIDE RECORDS SUMMARY | 2024-03-24 11:52 | XMS_ITS | Encounter Summary ---
Author Organization [facility] Address [address] [place] [address] Care Team Providers Care Riprap Man Name Role Phone Lolly Oliveira MD Primary Care Provider [phone] Encounter Details Date Type Department Care Team (Late st Contact Info) Description 05/27/2021 Lab Requisition [facility] Pathology & Laboratory Medicine - [address] [address] Iman Moran, DO [address] [place], [place] [id number] Encounter for other general examination Social History [...] explore management options, if applicable. 05/30/2021 13:31 [facility] Final Diagnosis A. COLON, POLYP AT 90 CM, BIOPSY/POLYPECTOM Y: - Tubular adenoma. 05/30/2021 13:31 [facility] Attestation By the signature below, the attending physician certifies that they have 1) personally conducted a gross and/or microscopic examination of the described specimen(s), and/or personally interpreted the results of laboratory testing of the described specimen(s), and 2) personally rendered or confirmed the above diagnosis. 05/30/2021 13:31 [facility] at 1331 Clinical History Severe diverticula and polypectomy x1 05/30/2021 13:31 [facility] Gross Description A. Received in formalin labelled with proper patient identification (initials J, K) and colon polyp x1 at 90 cm is a light pineda polypoid tissue measuring 0.2 x 0.2 x 0.2 cm. Submitted intact in A1. MICKEY CARLOS(ASCP) 05/27/2021 19:11 05/30/2021 13:31 [facility] Performing Lab [facility] 05/30/2021 13:31 [facility] Scanned Images 05/30/2021 13:31 [facility] Tissue ENTIRE COLON / Unknown 05/27/2021 11:23 EDT 05/27/2021 16:33 EDT us Iman Moran DO PATHOLOGY ORDERABLES Final Re sult [facility] [address] [place] [address] documented in this encounter Visit Diagnoses Diagnosis Encounter for other general examination documented in this encounter Care Teams Riprap Man Relationship Specialty Start Date End Date Lolly Oliveira MD [address] [place] [address] PCP - General 11/13/08 documented as of this encounter
--- OUTSIDE RECORDS SUMMARY | 2024-03-24 11:52 | XMS_ITS | Referral Summary ---
Author Organization [facility] Address [address] [place] [address] Care Team Providers Care Stogy Maker Name Role Phone Lolly Oliveira MD Primary Care Provider [phone] Social History Tobacco Use Types Packs/Day Years Used Date Smoking Tobacco: Never Assessed Comments Unknown Sex and Gender Information Value Date Recorded Sex Assigned at Not on file Legal Sex Female 18:31 EST Gender Identity Not on file Sexual Orientation Not on file Plan of Treatment Not on file Insurance [facility] MEDICARE Care Teams Stogy Maker Relationship Specialty Start Date End Date Lolly Oliveira MD [address] [place] [address] PCP - General 11/13/08
--- OUTSIDE RECORDS SUMMARY | 2024-03-24 11:52 | XMS_ITS | Encounter Summary ---
Author Organization [facility] Address [address] [place] [address] Care Team Providers Care Channel Process Supervisor Name Role Phone Unavailable Primary Care Provider Unavailabl e Encounter Details Date Type Department Care Team (Late st Contact Info) Description 11/07/2008 Orders Only [facility] Laboratory Services - [facility] ([facility]) [address] [place] [address] Kenneth Parker MD [address] [place] [address] Social History Tobacco Use Types Packs/Day Years [...] ? JING ALVARENGA ? Accession #: ? [id number] ? : ? 1950 (Age: 58) ??F [...] ORDERABLES Final Resu lt [facility] [address] [place] [address] documented in this encounter Visit Diagnoses Not on filedocumented in this encounter
--- OUTSIDE RECORDS SUMMARY | 2024-03-24 11:52 | XMS_ITS | Encounter Summary ---
Author Organization [facility] Address [address] [place] [address] Care Team Providers Care Lawyer Real Estate Name Role Phone Lolly Oliveira MD Primary Care Provider [phone] Encounter Details Date Type Department Care Team (Late st Contact Info) Description 04/25/2009 Orders Only [facility] Laboratory Services - [facility] ([facility]) [address] [place], [place] [phone] Lolly Oliveira MD [address] [place], [place] [phone] Social History Tobacco Use Types Packs/Day Years [...] ? JING ALVARENGA ? Accession #: ? [id number] ? : ? 1950 (Age: 58) ??F [...] ORDERABLES Final Resu lt Performing Organization Address [facility]/State/ZIP Co de Phone Number [facility] [address] [place] [address] documented in this encounter Visit Diagnoses Not on filedocumented in this encounter Care Teams Lawyer Real Estate Relationship Specialty Start Date End Date Lolly Oliveira MD [address] [place] [address] PCP - General 11/13/08 documented as of this encounter
--- OUTSIDE RECORDS SUMMARY | 2024-03-24 11:52 | XMS_ITS | Clinical Summary ---
Author Organization [facility] Address [address] [place] [address] Care Team Providers Care Code Inspector Name Role Phone Lolly Oliveira MD Primary Care Provider [phone] Social History Tobacco Use Types Packs/Day Years [...] [facility] MEDICARE Care Teams Code Inspector Relationship Specialty Start Date End Date Berrian, Lolly, MD [address] [place] [address] PCP - General 11/13/08
--- OUTSIDE RECORDS SUMMARY | 2024-03-24 11:52 | XMS_ITS | Encounter Summary ---
Author Organization [facility] Address [address] [place] [address] Care Team Providers Care Commercial Credit Specialist Name Role Phone Lolly Oliveira MD Primary Care Provider [phone] Encounter Details Date Type Department Care Team (Late st Contact Info) Description 03/06/2003 Results Only [facility] conversion [address] [place] [address] Lolly Oliveira MD [address] [place], [place] [id number] Social History Tobacco Use Types Packs/Day Years [...] ORDERABLES Final Resu lt [facility] [address] [place] [address] documented in this encounter Visit Diagnoses Not on filedocumented in this encounter Care Teams Commercial Credit Specialist Relationship Specialty Start Date End Date Lolly Oliveira MD [address] [place] [address] PCP - General 11/13/08 documented as of this encounter
--- OUTSIDE RECORDS SUMMARY | 2024-03-24 11:52 | XMS_ITS | Encounter Summary ---
Author Organization [facility] Address [address] [place] [address] Care Team Providers Care Rescue Boat Operator Name Role Phone Lolly Oliveira MD Primary Care Provider [phone] Encounter Details Date Type Department Care Team (Late st Contact Info) Description 06/16/2012 Results Only [facility] Laboratory Services - [facility] ([facility]) [address] [place], [place] [phone] Lolly Oliveira MD [address] [place], [place] [phone] Social History Tobacco Use Types Packs/Day Years [...] ? JING ALVARENGA ? Accession #: ? [id number] : ? 1950 (Age: 61) ??F ?Collect [...] ORDERABLES Final Resu lt [facility] [address] [place] [address] documented in this encounter Visit Diagnoses Not on filedocumented in this encounter Care Teams Rescue Boat Operator Relationship Specialty Start Date End Date Lolly Oliveira MD [address] [place] [address] PCP - General 11/13/08 documented as of this encounter
--- OUTSIDE RECORDS SUMMARY | 2024-03-24 11:52 | XMS_ITS | Encounter Summary ---
Author Organization [facility] Address [address] [place] [address] Care Team Providers Care Pbx Technician Name Role Phone Lolly Oliveira MD Primary Care Provider [phone] Encounter Details Date Type Department Care Team (Late st Contact Info) Description 04/01/2005 Results Only [facility] conversion [address] [place] [address] Blair Dukes MD [address] [place] [phone] Social History Tobacco Use Types Packs/Day Years [...] ? JING ALVARENGA ? Accession #: ? [id number] ? : ? 1950 (Age: 54) ??F [...] ? Received in Hollande' s fixative labelled [place] and #1 ??terminal ileum bx is a single 0.3 x 0.2 x 0.2 cm tissue, submitted intact as (A). Received in Hollande' s fixative labelled [place] and #2 ??transverse colon bx is a single 0.2 x 0.2 x 0.2 cm tissue, submitted intact as (B). ??(Dr. Lechuga)/[facility] End of Report [facility] 04/01/2005 04/02/2005 15: 24 EST us Blair Dukes MD PATHOLOGY ORDERABLES Final Resul t [facility] [address] [place] [address] documented in this encounter Visit Diagnoses Not on filedocumented in this encounter Care Teams Pbx Technician Relationship Specialty Start Date End Date Lolly Oliveira MD [address] [place] [address] PCP - General 11/13/08 documented as of this encounter
--- OUTSIDE RECORDS SUMMARY | 2024-03-24 11:52 | XMS_ITS | Encounter Summary ---
Author Organization [facility] Address [address] [place] [address] Care Team Providers Care University Relations Vice President Name Role Phone Lolly Oliveira MD Primary Care Provider [phone] Encounter Details Date Type Department Care Team (Late st Contact Info) Description 02/11/2021 Lab Requisition [facility] Pathology & Laboratory Medicine - [address] [id number] Outr Resulting Lab, Provider Social History Tobacco [...] GENER AL ORDERABLES Final Result [facility] [address] [place] [address] * COVID-19 TESTING (02/11/2021 8:00 EST) COVID-19 rt-PCR Result Negative Negative 02/12/2021 14:17 EST [facility] [...] performed using the med SARS-CoV-2 assay ([employer] on the Med 6800 System Performing Lab Med [address] [facility] Lab 02/12/2021 14:17 EST [facility] Swab 02/11/2021 8:00 EST 02/11/2021 22:22 EST us Provider Outr Resulting Lab MICROBIOLOGY - GENER AL ORDERABLES Final Result [facility] [address] [place] [address] documented in this encounter Visit Diagnoses Not on filedocumented in this encounter Care Teams University Relations Vice President Relationship Specialty Start Date End Date Lolly Oliveira MD [address] [place] [address] PCP - General 11/13/08 documented as of this encounter
--- OUTSIDE RECORDS SUMMARY | 2024-03-24 11:52 | XMS_ITS | Encounter Summary ---
Author Organization [facility] Address [address] [place] [address] Care Team Providers Care Chute Operator Name Role Phone Lolly Oliveira MD Primary Care Provider [phone] Encounter Details Date Type Department Care Team (Late st Contact Info) Description 02/20/2020 Lab Requisition [facility] Pathology & Laboratory Medicine - [address] [id number] Outr Resulting Lab, Provider Social History Tobacco [...] in accordance with CLIA regulations, [employer] (CAP) guidelines (May 25, 2019), and FDA guidance (May 06, 2019). This test is only for use under the Food and Drug Administration's Emergency Use Authorization. Swab ENTIRE NASOPHARYNX / Unknown 02/19/2020 16:30 EST 02/20/2020 16:09 EST us Provider Outr Resulting Lab MICROBIOLOGY - GENER AL ORDERABLES Final Result [facility] [place], [place] * COVID-19 TESTING (02/19/2020 16:30 EST) COVID-19 rt-PCR Result NEGATIVE Negative 02/22/2020 23:41 EST [facility] Comment: 2019-novel Coronavirus (2019-nCoV) [...] in accordance with CLIA regulations, [employer] (CAP) guidelines (May 25, 2019), and FDA guidance (May 06, 2019). This test is only for use under the Food and Drug Administration's Emergency Use Authorization. Performing Lab [facility] 02/22/2020 23:41 EST [facility] Swab 02/19/2020 16:3 0 EST 02/20/2020 16:09 EST us Provider Outr Resulting Lab MICROBIOLOGY - GENER AL ORDERABLES Final Result [facility] [address] [place] [address] [facility] [place], [place] documented in this encounter Visit Diagnoses Not on filedocumented in this encounter Care Teams Chute Operator Relationship Specialty Start Date End Date Lolly Oliveira MD [address] [place] [address] PCP - General 11/13/08 documented as of this encounter
--- OUTSIDE RECORDS SUMMARY | 2024-03-24 11:52 | XMS_ITS | Encounter Summary ---
Author Organization [facility] Address [address] [place] [address] Care Team Providers Care Incubator Operator Name Role Phone Lolly Oliveira MD Primary Care Provider [phone] Encounter Details Date Type Department Care Team (Late st Contact Info) Description 03/21/2019 Lab Requisition [facility] Pathology & Laboratory Medicine - [address] [address] Unknown, Provider, Social History Tobacco Use Types [...] 211 - 911 pg/mL 03/22/2019 11:52 EST [facility] Blood VENOUS BLOOD / Unknown 03/16/2019 9:25 EST 03/21/2019 21:35 EST us Provider Unknown CHEMISTRY & BLOOD GAS ORDERA BLES Final Result [facility] [address] [place] [address] documented in this encounter Visit Diagnoses Not on filedocumented in this encounter Care Teams Incubator Operator Relationship Specialty Start Date End Date Lolly Oliveira MD [address] [place] [address] PCP - General 11/13/08 documented as of this encounter
--- OUTSIDE RECORDS SUMMARY | 2024-03-24 11:53 | XMS_ITS | Encounter Summary ---
Author Organization [facility] [place] [address] Care Team Providers Care Fibre Optics Jointer Name Role Phone Lolly Oliveira MD Primary Care Provider [phone] Encounter Details Date Type Department Care Team (Latest Contact Info) Description 04/21/2023 10:00 AM EST - 04/21/2023 11:59 PM EST Hospital Encounter [place] [phone] Discharge Disposition: Home Social History Tobacco Use [...] with spacer fluticasone propionate (Flonase) 50 mcg/actuation [place], Suspension 1 spray by Each Nare route [...] AM EST Hospital Encounter Non[place] [address] Arrived documented as of this [...] on filedocumented in this encounter Care Teams Fibre Optics Jointer Relationship Specialty Start Date End Date Lolly Oliveira MD [address] [place] [address] PCP - General 07/17/13 documented as of this encounter
--- OUTSIDE RECORDS SUMMARY | 2024-03-24 11:53 | XMS_ITS | Encounter Summary ---
Author Organization [facility] Address [place] [address] Care Team Providers Care Mining Machinery Assembler Name Role Phone Lolly Oliveira MD Primary Care Provider [phone] Reason for Visit * Auth/Cert (Routine) Specialty Diagnoses / Procedures Referred By Contac t Referred To Contact Diagnoses Left bundle-branch block, unspecified Other cardiomyopathies Left bundle branch block [I44.7]Nonischemic cardiomyopathy [I42.8] Procedures PRG CATH PLMT LEFT HEART CATH & ARTS W/INJ & ANGIO IMG S&I ELECTROPHYSIOLOGY PROCEDURE Lalit Mcmahon MD [facility] [place] [address] [facility] Referral ID Status Reason Start Date Expiration Date Visits Re quested Visits Authorized [id number] 1 1 Encounter Details Date Type Department Care Team (Late st Contact Info) Description 07/23/2022 1:08 PM EDT Anesthesia [place] [address] Monae Gonzalez MD [facility] [place] [address] Maria Elena Snyder CRNA [facility] [place] [address] Anesthesia Record Procedure Summary Procedure Name Responsible [...] 1307; median cubital vein (antecubital fossa), right; pnda-via-qskmti catheter system; Anatomical Landmarks; 20 gauge; 07/24/22; [...] 1343; metacarpal vein (top of hand), left; obiv-jkc-imhkll catheter system; Anatomical Landmarks; US Not Used; [...] Summary Date: 07/23/22 Room / Location: [facility] A-LAB ROOM 3 / [facility] EP LABS Anesthesia Start: 1308 Anesthesia Stop: 1633 Procedure: ELECTROPHYSIOLOGY PROCEDURE (Left) Diagnosis: Left bundle branch block Nonischemic cardiomyopathy (Left bundle branch block [I44.7]Nonischemic cardiomyopathy [I42.8]) Providers: Lalit Mcmahon MD Responsible Provider: Monae Gonzalez MD Anesthesia Type: general ASA Status: 4 All Anesthesia Providers: Anesthesiologist: Monae Gonzalez MD; Dominique Sen MD LOCK TECHNICIAN: Maria Elena Snyder CRNA Vitals Value Taken Time BP 131/46 07/23/22 1700 Temp 36.7 ??C (98.1 ??F) 07/23/22 1627 Pulse 67 07/23/22 1703 Resp 14 07/23/22 1703 SpO2 98 % 07/23/22 1703 Pain Level Vitals shown include unvalidated device data. 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 No prior anesthetic records. Pt states [...] daughter/son and patient who. Plan discussed with LOCK TECHNICIAN. Anesthesia Screening documented in this encounter Plan of Treatment Upcoming Encounters Date Type Department Care Team (Late st Contact Info) Description 04/15/2024 10:00 AM [facility] Hospital Encounter Non-Invasive [place] [address] Arrived documented as of [...] mg documented in this encounter Care Teams Mining Machinery Assembler Relationship Specialty Start Date End Date Lolly Oliveira MD [address] [place] [address] PCP - General 07/17/13 documented as of this encounter
--- OUTSIDE RECORDS SUMMARY | 2024-03-24 11:53 | XMS_ITS | Encounter Summary ---
Author Organization [facility] [place] [address] Care Team Providers Care Green Material Value Added Assessor Name Role Phone Lolly Oliveira MD Primary Care Provider [phone] Encounter Details Date Type Department Care Team (Latest Contact Info) Description 10/18/2023 10:00 AM EDT - 10/18/2023 11:59 PM EDT Hospital Encounter [place] [address] Discharge Disposition: Home Social History Tobacco Use [...] with spacer fluticasone propionate (Flonase) 50 mcg/actuation [place], Suspension 1 spray by Each Nare route daily as needed. documented as of this encounter Plan of Treatment Upcoming Encounters Date Type Department Care Team (Late st Contact Info) Description 04/15/2024 10:00 AM EST Hospital Encounter Non[place] [address] Arrived documented as of this encounter Procedures [...] Oliveira MD [address] [place] [address] PCP - General 07/17/13 documented as of this encounter
--- OUTSIDE RECORDS SUMMARY | 2024-03-24 11:53 | XMS_ITS | Encounter Summary ---
[place] [address] Care Team Providers Care Manager Operations And Procurement Name Role Phone Lolly Oliveira MD Primary Care Provider [phone] Encounter Details Date Type Department Care Team [...] AM EST Hospital Encounter Non-Invasive [place] [address] Arrived documented as of this encounter Visit Diagnoses Not on filedocumented in this encounter Care Teams Manager Operations And Procurement Relationship Specialty Start Date End Date Lolly Oliveira MD [address] [place] [address] PCP - General 07/17/13 documented as of this encounter
--- OUTSIDE RECORDS SUMMARY | 2024-03-24 11:53 | XMS_ITS | Encounter Summary ---
Author Organization [facility] [place] [address] Care Team Providers Care Tree Fruit And Nut Crops Farmer Name Role Phone Lolly Oliveira MD Primary Care Provider [phone] Encounter Details Date Type Department Care Team (Late st Contact Info) Description 05/18/2023 Telephone Dermatology at [address] [address] Nora Meredith LPN Social [...] [facility] Hospital Encounter Non-Invasive [place] [address] Arrived documented as of this encounter Visit Diagnoses Not on filedocumented in this encounter Care Teams Tree Fruit And Nut Crops Farmer Relationship Specialty Start Date End Date Lolly Oliveira MD [address] [place] [address] PCP - General 07/17/13 documented as of this encounter
--- OUTSIDE RECORDS SUMMARY | 2024-03-24 11:53 | XMS_ITS | Encounter Summary ---
Author Organization [facility] [place] [address] Care Team Providers Care Election Watcher Name Role Phone Lolly Oliveira MD Primary Care Provider [phone] Encounter Details Date Type Department Care Team [...] AM EST Hospital Encounter Non-Invasive [place] [address] Arrived documented as of this encounter Visit Diagnoses Not on filedocumented in this encounter Care Teams Election Watcher Relationship Specialty Start Date End Date Lolly Oliveira MD [address] [place] [address] PCP - General 07/17/13 documented as of this encounter
--- OUTSIDE RECORDS SUMMARY | 2024-03-24 11:53 | XMS_ITS | Encounter Summary ---
Author Organization [facility] [place] [address] Care Team Providers Care Corn Shredder Name Role Phone Lolly Oliveira MD Primary Care Provider [phone] Reason for Referral * Diagnostic Test (Routine) - Closed Specialty Diagnoses / Procedures Referred By Contac t Referred To Contact Radiology Diagnoses Left bundle branch block Nonischemic cardiomyopathy Procedures MRI Cardiac Morphology Function With Flow Velocity Quantification wwo Contrast MRI Cardiac Morphology Function wwo Contrast Lalit Mcmahon MD [facility] [place] [address] [place] [address] Referral ID Status Reason Start Date Expiration Date V isits Requested Visits Authorized [id number] Closed Specialty Service Requested 05/06/2022 11/07/2023 2 1 Encounter Details Date Type Department Care Team (Late st Contact Info) Description 05/06/2022 Orders Only Cardiology at [address] [address] Lalit Mcmahon MD [facility] [place] [address] Left bundle branch block; Nonischemic cardiomyopathy Social [...] AM EST Hospital Encounter Non-[place] [address] Arrived documented as of this encounter Results [...] questions please contact the health patient care assistant that requested your imaging first. [...] have questions please contactthe health patient care assistant that requested your imaging first. Lalit Mcmahon MD IMG MRI ORDERABLES documented in this encounter Visit Diagnoses Diagnosis Left bundle branch block Other left bundle branch block Nonischemic cardiomyopathy Other primary cardiomyopathies Left bundle branch block Other left bundle branch block Nonischemic cardiomyopathy Other primary cardiomyopathies documented in this encounter Care Teams Corn Shredder Relationship Specialty Start Date End Date Lolly Oliveira MD [address] [place] [address] PCP - General 07/17/13 documented as of this encounter
--- OUTSIDE RECORDS SUMMARY | 2024-03-24 11:53 | XMS_ITS | Encounter Summary ---
Author Organization [facility] Address [facility] [place] [address] Care Team Providers Care Blocker Hand Name Role Phone Lolly Oliveira MD Primary Care Provider [phone] Encounter Details Date Type Department Care Team (Late st Contact Info) Description 01/29/2023 Notes Only Cardiology at [address] [address] Merle Lin PA [facility] [place] [address] Social History Tobacco Use Types Packs/Day Years [...] pdf document Date of transmission: 01/29/2023 Device therapy site coordinator: BSI Device type: GEAR FINISHER-D Presenting rhythm: /RVP/LVP AP 21% Right COMMERCIAL CONSTRUCTION SUPERINTENDENT 100% Left COMMERCIAL CONSTRUCTION SUPERINTENDENT: 100% Battery: 10.5 years [employer] Index rising in setting of increasing S3 intensity, increasing respiratory rate, increasing night heart rate, and increasing mean heart rate. MICKEY Villa 01/29/2023 9:06 AM documented in this encounter Plan of Treatment Upcoming Encounters Date Type Department Care Team (Late st Contact Info) Description 04/15/2024 10:00 AM EST Hospital Encounter Non-[place] [address] Arrived documented as of this encounter Visit Diagnoses Not on filedocumented in this encounter Care Teams Blocker Hand Relationship Specialty Start Date End Date Lolly Oliveira MD [address] [place] [address] PCP - General 07/17/13 documented as of this encounter
--- OUTSIDE RECORDS SUMMARY | 2024-03-24 11:53 | XMS_ITS | Encounter Summary ---
Author Organization [facility] [place] [address] Care Team Providers Care Color Technician Name Role Phone Lolly Oliveira MD Primary Care Provider [phone] Reason for Visit * Reason Comments Follow-up 8 weeks UVB treatmen t twice weekly Encounter Details Date Type Department Care Team (Late st Contact Info) Description 07/19/2023 11:00 AM EDT Office Visit Dermatology at [address] [phone] Clay Ramírez MD [address], ERIKA A DERMATOLOGY [place], [place] [id number] Psoriasis Social History Tobacco Use Types Packs/Day [...] [facility] Hospital Encounter [place] [address] Arrived documented as of this encounter Visit Diagnoses Diagnosis Psoriasis Other psoriasis documented in this encounter Care Teams Color Technician Relationship Specialty Start Date End Date Lolly Oliveira MD [address] [place] [address] PCP - General 07/17/13 documented as of this encounter
--- OUTSIDE RECORDS SUMMARY | 2024-03-24 11:53 | XMS_ITS | Encounter Summary ---
Author Organization [facility] [place] [address] Care Team Providers Care Suggestion Clerk Name Role Phone Lolly Oliveira MD Primary Care Provider [phone] Encounter Details Date Type Department Care Team (Latest Contact Info) Description 07/20/2023 10:00 AM EDT - 07/20/2023 11:59 PM EDT Hospital Encounter [place] [address] Discharge Disposition: Home Social History Tobacco Use [...] with spacer fluticasone propionate (Flonase) 50 mcg/actuation [place], Suspension 1 spray by Each Nare route daily as needed. documented as of this encounter Plan of Treatment Upcoming Encounters Date Type Department Care Team (Late st Contact Info) Description 04/15/2024 10:00 AM EST Hospital Encounter Non[place] [address] Arrived documented as of this encounter Procedures [...] on filedocumented in this encounter Care Teams Suggestion Clerk Relationship Specialty Start Date End Date Lolly Oliveira MD [address] [place] [address] PCP - General 07/17/13 documented as of this encounter
--- OUTSIDE RECORDS SUMMARY | 2024-03-24 11:53 | XMS_ITS | Encounter Summary ---
Author Organization [facility] [place] [address] Care Team Providers Care Entry Level Manager Name Role Phone Lolly Oliveira MD Primary Care Provider [phone] Reason for Referral * Diagnostic Test (Routine) - Closed Specialty Diagnoses / Procedures Referred By Contac t Referred To Contact Radiology Diagnoses Left bundle branch block Nonischemic cardiomyopathy Procedures MRI Cardiac Morphology Function With Flow Velocity Quantification [facility] Contrast MRI Cardiac Morphology Function wwo Contrast Lalit Mcmahon MD [facility] [place] [address] [place] [address] Referral ID Status Reason Start Date Expiration Date V isits Requested Visits Authorized [id number] Closed Specialty Service Requested 05/06/2022 11/07/2023 2 1 Reason for Visit * Diagnostic Test (Routine) - Closed Specialty Diagnoses / Procedures Referred By Contac t Referred To Contact Radiology Diagnoses Left bundle branch block Nonischemic cardiomyopathy Procedures MRI Cardiac Morphology Function With Flow Velocity Quantification o Contrast MRI Cardiac Morphology Function wwo Contrast Lalit Mcmahon MD [facility] [place] [address] [place] [address] Referral ID Status Reason Start Date Expiration Date V isits Requested Visits Authorized [id number] Closed Specialty Service Requested 05/06/2022 11/07/2023 2 1 Encounter Details Date Type Department Care Team (Latest Contact Info) Description 07/14/2022 9:08 AM EDT Hospital Encounter MRI at [facility] [place] [address] Lalit Mcmahon MD [facility] [place] [address] Left bundle branch block; Nonischemic cardiomyopathy Discharge [...] with spacer fluticasone propionate (Flonase) 50 mcg/actuation [place], Suspension 1 spray by Each Nare route [...] 71 y.o. : 1950 [address] [facility] [address] Female [phone] (home) No relevant phone numbers on file. Lolly Oliveira MD None Allergies Allergen Reactions ??? Sulfa (Sulfonamide Antibiotics) Date/Time of call: July 07, 2022/11:03 AM/ PREVIOUS MRI SCAN? HEIGHT: WEIGHT: SCHEDULED SCAN: MRI CARDIAC MORPHOLOGY FUNCTION WITH FLOW VELOCITY QUANTIFICATION WWO CONTRAST [[id number]] Order Questions Answers Where will study be performed? [facility] Radiology [120] SUBJECTIVE: Very Claustrophobic [...] ( K[place] ) You must have a bulk driver present when you check in. This patient has been informed that they require a bulk driver to drive them home after this procedure. In the absence of a bulk driver, IR will not be able to sedate for your scan. Pt verbalized understanding of these instructions during the pre-procedure education via phone. Yes Name of bulk driver: Daughter Phone number: PRIOR SCAN DATE/S SEDATION TYPE SUCCESSFUL 07/14/22 MRI Cardiac Morphology Function with Flow Velocity Quantification wwo Contrast Ativan 1mg x 1 dose Pass Revised 08/03/17 documented in this encounter Plan of Treatment Upcoming Encounters Date Type Department Care Team (Late st Contact Info) Description 04/15/2024 10:00 AM [facility] Hospital Encounter Non-Invasive [place] [address] Arrived documented as of this encounter Procedures [...] who have questions please contact the health urgent care physician assistant that requested your imaging first. ? Electronically signed by: Greyson Herron MD, [facility] ([phone]), at 07/15/2022 9:53 AM Narrative 07/15/2022 9:53 [...] patients who have questions please contactthe health urgent care physician assistant that requested your imaging first. Lalit [...] mg documented in this encounter Care Teams Entry Level Manager Relationship Specialty Start Date End Date Lolly Oliveira MD [address] [place] [address] PCP - General 07/17/13 documented as of this encounter
--- OUTSIDE RECORDS SUMMARY | 2024-03-24 11:53 | XMS_ITS | Encounter Summary ---
Author Organization [facility] Address [address] [place] [address] Care Team Providers Care Engraving Patternmaker Name Role Phone Lolly Oliveira MD Primary Care Provider [phone] Encounter Details Date Type Department Care Team (Late st Contact Info) Description 05/29/2002 Results Only [facility] conversion [address] [place] [address] Silvia Diehl, [address] [place] [phone] Social History Tobacco Use Types Packs/Day Years [...] ? LYLE, JING ? Accession #: ? [id number] : ? 1950 (Age: 51) ??F ?Collect Date: ? 05/29/2002 Location: ? [facility] ? Receive Date: ? 05/31/2002 Provider: ?SILVIA DIEHL CUT AND PRINT MACHINE OPERATOR Copy to: ? Specimen/Source: ?ThinPrep [...] [facility] 05/29/2002 05/31/2002 us Silvia Diehl CUT AND PRINT MACHINE OPERATOR PATHOLOGY ORDERABLES Final R esult [facility] [address] [place] [address] documented in this encounter Visit Diagnoses Not on filedocumented in this encounter Care Teams Engraving Patternmaker Relationship Specialty Start Date End Date Lolly Oliveira MD [address] [place] [address] PCP - General 11/13/08 documented as of this encounter
--- OUTSIDE RECORDS SUMMARY | 2024-03-24 11:53 | XMS_ITS | Encounter Summary ---
Author Organization [facility] Address [facility] [place] [address] Care Team Providers Care Hydrological Technical Officer Name Role Phone Lolly Oliveira MD Primary Care Provider [phone] Reason for Visit * Auth/Cert (Routine) Specialty Diagnoses / Procedures Referred By Contac t Referred To Contact Diagnoses Left bundle-branch block, unspecified Other cardiomyopathies Left bundle branch block [I44.7]Nonischemic cardiomyopathy [I42.8] Procedures PRG CATH PLMT LEFT HEART CATH & ARTS W/INJ & ANGIO IMG S&I ELECTROPHYSIOLOGY PROCEDURE Lalit Mcmahon MD [facility] [place] [address] [facility] Referral ID Status Reason Start Date Expiration Date Visits Re quested Visits Authorized [id number] 1 1 Encounter Details Date Type Department Care Team (Latest Contact Info) Description 07/23/2022 11:39 AM EDT - 07/24/2022 10:23 AM EDT Hospital [place] [phone] Lalit Mcmahon MD [facility] [place] [address] Left bundle branch block; Nonischemic cardiomyopathy; Cardiac resynchronization therapy defibrillator (EARTH SCIENCE LABORATORY TECHNICIAN-D) in place Discharge Disposition: Home Social [...] MD Follow-up Recommendations for Providers: - s/p EARTH SCIENCE LABORATORY TECHNICIAN-D implant - post implant QRS 130 [...] [facility] EARTH SCIENCE LABORATORY TECHNICIAN-D implant History of Presentation: 71 y.o. female with a history of HFrEF, LBBB, QRS >150, NYHA II who is POD#1 of EARTH SCIENCE LABORATORY TECHNICIAN-D implant ([employer]). Hospital Course: Elective admission for EARTH SCIENCE LABORATORY TECHNICIAN-D implant Admitted post-implant for pain management, [...] (heart failure with reduced ejection fraction) [I50.20] EARTH SCIENCE LABORATORY TECHNICIAN-D implant Admission Condition: good Indication for [...] g Refills: 3 fluticasone propionate 50 mcg/actuation [place], Suspension Commonly known as: Flonase 1 spray [...] F. The office scheduling phone number is [phone]. ARM MOVEMENT RESTRICTIONS POST-IMPLANT - Do not [...] please call the Cardiac ElectrophysiologyTriage Nurse at [phone], option 3. General Instructions None Discharge References/Attachments [...] F. The office scheduling phone number is [phone]. ARM MOVEMENT RESTRICTIONS POST-IMPLANT - Do not [...] please call the Cardiac ElectrophysiologyTriage Nurse at [phone], option 3. documented in this encounter Medications [...] with spacer fluticasone propionate (Flonase) 50 mcg/actuation [place], Suspension 1 spray by Each Nare route [...] Cardiac Electrophysiology Post-Implant Device Interrogation Luna Mott [id number] 07/24/2022 History: Luna Mott is a 71 y.o. female with a history of HFrEF, LBBB, QRS >150, NYHA II who is POD#1 of EARTH SCIENCE LABORATORY TECHNICIAN-D implant ([employer]). Overall feels well this morning. Ready [...] WOB Neuro- A&Ox3 Device Interrogation: Data ?? Registered Nurse Maternal Child Model # Serial # Generator [employer] [id number] Atrial Lead [employer] [id number] [id number] RV Lead [employer] 0672 [id number] LV Lead [employer] 4674 [id number] ?? Diagnostics Pacing Mode: DDD 60-130 Underlying Rhythm: Given Atrial Episodes: None Ventricular Episodes: None FINAL PROGRAMMING: Pacing: Mode Lower rate (ppm) Upper rate (ppm) ?? DDD 60 130 VF: Rate (bpm) #Antitachycardia pacing First shock energy (J) ?? 200 Quick convert 41 VT: 170 Monitor only Monitor only ? Battery and Leads Impedances (ohms) Sensing (mV) Thresholds HV RA RV LV RA RV LV RA RV LV 73 [phone] (LVa) 7.7 13.1 >25 0.4V @ 0.4 ms 0.4V @ 0.4 ms 0.5 V @ 1.0 ms POD#1 CXR: All leads in nominal positioning Impression: 71 y.o. female who is s/p EARTH SCIENCE LABORATORY TECHNICIAN-D implant for LBBB, NYHA II, HFrEF. [...] [facility]) Fadi Nunez MD 07/24/2022 Pager: [phone] I met with the patient today and [...] agreement. ? Dr. Lalit Mcmahon, electrophysiology attending ([id number]) * Zaria Wright RN - 07/23/2022 8:28 [...] HF, QRS > 150 ms presents for EARTH SCIENCE LABORATORY TECHNICIAN-D placement. ROS: Denies recent fevers or [...] 5-20 mL Intravenous Q1 Min PRN Monae Gonzalze MD ??? lidocaine (Xylocaine) 1% (10 mg/mL) injection 3 mg 0.3 mL Subcutaneous Once PRN Monae Gonzalez MD ??? lactated ringers infusion 1,000 mL Intravenous Continuous Monae Gonzalez MD ??? sodium chloride 0.9 % (flush) (BD PosiFlush Normal Saline 0.9) flush 5 mL 5 mL Intravenous [id number] ramos MD ??? sodium chloride 0.9 % [...] HF, QRS > 150 ms presents for EARTH SCIENCE LABORATORY TECHNICIAN-D placement. Backup would be LBBAP lead. Antibiotics: cefazolin Rationales for, intended benefits and potential risk of planned procedures reviewed. The patient indicated understanding and agreement with the plan. Informed consent signed. Procedure checklist completed. Fadi Nunez MD Cardiac Electrophysiology Fellow [facility] Pager [phone] 07/23/2022 I met with the patient today [...] agreement. ? Dr. Lalit Mcmahon, electrophysiology attending ([id number]) documented in this encounter Miscellaneous Notes * Brief Op Note - Lalit Mcmahon MD - 07/23/2022 4:04 PM EDT Brief Operative Note Patient Name: Luna Mott : [id number] MR#: [id number] Case Date: 07/23/2022 Surgeon: Surgeon(s) and Role: [...] AM EST Hospital Encounter Non[place] [address] Arrived Scheduled Orders Name Type Priority Associated Diagnoses Orde r Schedule EKG 12 Lead ECG Routine Cardiac resynchronization therapy defibrillator (EARTH SCIENCE LABORATORY TECHNICIAN-D) in place One Time for 1 [...] (Bezet) 522 ms MUSE SYSTEM Calculated R [place] 78 degrees MUSE SYSTEM Calculated T [place] -71 degrees MUSE SYSTEM INTERPRETATION AV dual-paced [...] imaging first. ? Electronically signed by: Kwame aVrgas MD, [facility] ([phone]), at 07/24/2022 6:43 AM Narrative 07/24/2022 6:43 [...] physician assistant that requested your imaging first. Electronically signed by: Kwame Vargas MD, [facility]([phone]), at 07/24/2022 6:43 AM Lalit Mcmahon MD IMG DX ORDERABLES * ELECTROPHYSIOLOGY PROCEDURE (07/23/2022 1:11 PM EDT) Anatomical Region Laterality Modality Other Narrative 07/23/2022 4:24 PM EDT Table formatting from the original result was not included. BIVENTRICULAR ICD IMPLANTATION Gas Operations Analyst: Lalit Mcmahon MD Fellow: Fadi Nunez MD [...] lateral branch of the CS in the SWISS view. This branch was cannulated with a [...] the entire procedure. LEAD AND GENERATOR DATA: Registered Nurse Maternal Child Model # Serial # Generator [employer] G447 [id number] Atrial Lead [employer] 7841 [id number] RV Lead [employer] 0672 [id number] LV Lead [employer] 4674 419075 PACE/SENSE DATA: Sensed wave (mV) Threshold (V) [...] (cGycm2) 300 CONCLUSIONS: Successful implantation of a [employer] biventricular ICD for primary prevention and treatment of symptoms related to congestive heart failure. Follow up in EP clinic in 1-2 months. Procedures performed: new ICD system ( cpt 21330-H7); implant LV lead at time of ICD insertion (cpt 62389) I have read, edited and approve of this report: Lalit Mcmahon MD S Cardiac Electrophysiology 07/23/2022 4:22 PM Procedure Note Lalit Mcmahon MD - 07/23/2022 BIVENTRICULAR ICD IMPLANTATION Gas Operations Analyst: Lalit Mcmahon MD Fellow: Fadi Nunez MD [...] appropriate lateralbranch of the CS in the SWISS view. This branch was cannulated with a [...] in the entireprocedure. LEAD AND GENERATOR DATA: Registered Nurse Maternal Child Model # Serial # Generator [employer] G447 [id number] Atrial Lead [employer] 7841 [id number] RV Lead [employer] 0672 528149 LV Lead [employer] 4674 044637 PACE/SENSE DATA: Sensed wave (mV) Threshold (V) [...] (cGycm2) 300 CONCLUSIONS: Successful implantation of a [employer] biventricular ICD forprimary prevention and treatment of symptoms related to congestive heartfailure. Follow up in EP clinic in 1-2 months. Procedures performed: new ICD system ( cpt 87319-B7); implant LV lead attime of ICD insertion (cpt 65780) I have read, edited and approve of this report: Lalit Mcmahon MD [facility] Cardiac Electrophysiology 07/23/2022 4:22 PM Lalit Mcmahon MD EP PROCEDURE ORDERAB LES * POCT Glucose (07/23/2022 12:54 PM EDT) Glucose, POC 83 65 - 199 mg/dL [facility] Comment: Supplemental ranges: <140 mg/dL before meals <180 mg/dL all other times of the day Blood 07/23/2022 12:5 4 PM EDT 07/23/2022 12:54 PM EDT Lalit Mcmahon MD POINT OF CARE TEST O RDERABLES Performing Organization Address [facility] Co de Phone Number [facility] [place] [address] * EKG 12 Lead (07/23/2022 12:33 PM EDT) Ventricular rate 72 BPM MUSE SYSTEM Atrial Rate 72 BPM MUSE SYSTEM P-R Interval 158 ms MUSE SYSTEM QRS Duration 176 ms MUSE SYSTEM Q-T Interval 458 ms MUSE SYSTEM QTC Calculated (Bezet) 501 ms MUSE SYSTEM Calculated P [place] 34 degrees MUSE SYSTEM Calculated R [place] 12 degrees MUSE SYSTEM Calculated T [place] -173 degrees MUSE SYSTEM INTERPRETATION Normal sinus rhythm Left bundle branch block Abnormal ECG No previous ECGs available Confirmed by MD Salome, Lalit ([id number]) on 07/23/2022 1:19:03 PM MUSE SYSTEM 07/23/2022 12:3 3 PM EDT 07/23/2022 1:19 PM EDT Lalit Mcmahon MD ECG ORDERABLES Performing Organization Address [facility] de Phone Number MUSE SYSTEM * Differential, Automated (07/23/2022 11:55 AM EDT) Neutrophil % 62.6 % [facility] Neutrophil Absolute 4.14 1.70 - 6.10 x10(3)/[facility] Lymph % 27.0 % [facility] Lymphocytes Abs 1.8 0.9 - 3.2 x10(3)/[facility] Monocyte % 7.3 % [facility] ITAL LAB[facility] Monocyte Abs 0.5 0.3 - 0.9 x10(3)/[facility] Eos % 2.3 % [facility] Eosinophils Abs 0.2 0.0 - 0.4 x10(3)/[facility] Basophil % 0.6 % [facility] ITAL [facility] Baso Absolute 0.0 0.0 - 0.1 x10(3)/[facility] Immature Gran % 0.20 % [facility] Comment: Immature granulocytes(IG's)percentage and absolute count will include metamyelocytes, myelocytes, and promyelocytes. Blood smears from CBCs yielding IG's will be scanned manually for concordance. If this scan disagrees with the automated IG or if promyelocytes are noted, a manual differential will be performed. Immature Gran Absolute 0.01 0.00 - 0.04 x10(3)/[facility] Blood 07/23/2022 11:5 5 AM EDT 07/23/2022 12:07 PM EDT Narrative Resulting Agency Comment Spec In Lab Lalit Mcmahon MD HEMATOLOGY ORDERABLE S [facility] [place] [address] * Hemogram (07/23/2022 11:55 AM EDT) White Blood Cell 6.6 4.0 - 9.5 x10(3)/[facility] Red Blood Cell 4.50 4.00 - 5.21 x10(6)/[facility] Hemoglobin 13.7 11.7 - 15.5 g/dL [facility] Hematocrit 42.5 35.7 - 45.8 % [facility] Mean Cell Volume 94.4 82.6 - 94.4 fL [facility] Mean Cell Hemoglobin 30.4 27.1 - 32.0 pg [facility] Mean Cell Hemoglobin Concentration 32.2 31.7 - 35.0 g/dL [facility] Platelet 193 145 - 357 x10(3)/[facility] RDW Standard Deviation 45.5 37.0 - 46.0 fL [facility] RDW coefficient of variation 13.2 11.5 - 14.1 % [facility] Mean Platelet Volume 9.5 7.6 - 12.9 fL [facility] NRBC% auto 0.0 % [facility] ITAL [facility] NRBC Absolute 0.000 0.000 - 0.000 x10(3)/mcL [facility] Blood 07/23/2022 11:5 5 AM EDT 07/23/2022 12:07 PM EDT Narrative Resulting Agency Comment Spec In Lab Lalit Mcmahon MD HEMATOLOGY ORDERABLE S [facility] [address] [place] [address] * (ABNORMAL) BMP w/fasting Glucose (07/23/2022 11:55 AM EDT) Glucose Fasting 110(H) 65 - 99 mg/dL [facility] Comment: ?Fasting* Glucose Interpretive [...] of Diabetes Mellitus, Position Statement from the [place] [employer]. ??Diabetes Care, Volume 33, Supplement 1, Mar 2009 Blood Urea Nitrogen 23(H) 8 - 18 mg/dL [facility] Creatinine 1.07 0.70 - 1.20 mg/dL [facility] Sodium 141 135 - 145 mmol/L [facility] Potassium 4.8 3.5 - 5.0 mmol/L [facility] Comment: Please note: ??Patients with WBC >100,000 may have falsely elevated Potassium levels. ??For accurate Potassium quantification in these patients send serum separator tube (gold top) for subsequent determinations. ??Contact the Clinical Chemistry Laboratory if there are any questions. Chloride 106 98 - 107 mmol/L [facility] Carbon Dioxide 26 22 - 31 mmol/L [facility] Anion Gap 9 5 - 15 mmol/L [facility] Calcium 9.7 8.5 - 10.5 mg/dL [facility] Est Glomerular Filtration Rate 55(L) >=60 mL/min/1. 73 m?? [facility] Comment: This patient's estimated GFR [...] MD CHEMISTRY ORDERABLES Performing Organization Address [facility] Co de Phone Number [facility] [address] * Prothrombin Time (07/23/2022 11:55 AM EDT) Prothrombin Time 11.7 9.4 - 12.5 sec [facility] International Normalization Ratio 1.0 [facility] Comment: An INR <2.0 [...] MD HEMATOLOGY ORDERABLE S Performing Organization Address [facility] Co de Phone Number [facility] [place] [address] documented in this encounter Visit Diagnoses Diagnosis HFrEF (heart failure with reduced ejection fraction)- Primary Left bundle branch block Other left bundle branch block Nonischemic cardiomyopathy Other primary cardiomyopathies Cardiac resynchronization therapy defibrillator (EARTH SCIENCE LABORATORY TECHNICIAN-D) in place Left bundle branch block [...] Routine documented in this encounter Care Teams Hydrological Technical Officer Relationship Specialty Start Date End Date Lolly Oliveira MD [address] [place] [address] PCP - General 07/17/13 documented as of this encounter
--- OUTSIDE RECORDS SUMMARY | 2024-03-24 11:53 | XMS_ITS | Clinical Summary ---
Author Organization [facility] [place] [address] Care Team Providers Care Accounts Payable Coordinator Name Role Phone Lolly Oliveira MD Primary Care Provider [phone] Allergies Active Allergy Reactions Criticality Noted Date [...] spacer Active fluticasone propionate (Flonase) 50 mcg/actuation [place], Suspension 1 spray by Each Nare route [...] PM EST Hospital Encounter Non-[place] [address] Discharge Disposition: Home from Last [...] EST Hospital Encounter Non-[place] [address] Arrived Health Maintenance Due Date Last Done [...] series) 11/07/2023 Medical Devices Implanted Type Area Legal Word Processor Device Identifier Shelf Expiration Date Model / Serial / Lot Bsx: [id number]: [id number]/18/2 023 Implanted: by Lalit Mcmahon MD (Quantity not on file) Defibrillator Chest Wall [employer] G447 / [id number] / Bsx: [id number]: 207714-2/18/2 023 Implanted: by Lalit Mcmahon MD (Quantity not on file) Lead Heart [employer] 4674 / [id number] / Bsx: [id number]: [id number] Implanted: by Lalit Mcmahon MD (Quantity not on file) Lead Heart [employer] 7841 / [id number] / Bsx: 0672: 120065-2/18/2 023 Implanted: by Lalit Mcmahon MD (Quantity not on file) Lead Heart [employer] 0672 / [id number] / Procedures Procedure Name Priority Date/Time Associated [...] Status decision made by: Patient Care Teams Accounts Payable Coordinator Relationship Specialty Start Date End Date Lolly Oliveira MD [address] [place] [id number] PCP - General 07/17/13
--- OUTSIDE RECORDS SUMMARY | 2024-03-24 11:53 | XMS_ITS | Encounter Summary ---
Author Organization [facility] [place] [address] Care Team Providers Care Live Truck Operator Name Role Phone Lolly Oliveira MD Primary Care Provider [phone] Encounter Details Date Type Department Care Team (Late st Contact Info) Description 03/17/2023 Telephone Cardiology at [address] [phone] Saranya Ma Social History Tobacco Use Types Packs/Day Years Used Date Smoking Tobacco: Never Alcohol Use Standard Drinks/Week Comments Not Currently 0 (1 standard drink = 0.6 oz pur e alcohol) [facility] Inpatient Questions Answer Date [...] 9:43 AM EST Echo order faxed to [facility] at [phone]. No Prior auth needed. Ref #:[id number]. Saranya Ma Sr. Clinical Procedure [place]/Fire Equipment Repairer Inspector documented in this encounter Plan of Treatment Upcoming Encounters Date Type Department Care Team (Late st Contact Info) Description 04/15/2024 10:00 AM [email or web address] Hospital Encounter Non[place] [address] Arrived documented as of this encounter Visit Diagnoses Not on filedocumented in this encounter Care Teams Live Truck Operator Relationship Specialty Start Date End Date Lolly Oliveira MD [address] [place] [address] PCP - General 07/17/13 documented as of this encounter
--- OUTSIDE RECORDS SUMMARY | 2024-03-24 11:53 | XMS_ITS | Encounter Summary ---
Author Organization [facility] [place] [address] Care Team Providers Care Linux Support Engineer Name Role Phone Lolly Oliveira MD Primary Care Provider [phone] Reason for Visit * Reason Onset Date Comments Other 07/24/2022 Implanted Cardia c Device Teaching/Education Encounter Details Date Type Department Care Team (Late st Contact Info) Description 07/24/2022 Notes Only Cardiology at [address] [phone] Letha Arroyo Other (Implanted Cardiac Device Teaching/Education) [...] to call the Cardiac Device Clinic at [phone] with any questions. Plan: Post op check: [...] [facility] Hospital Encounter Non[place] [address] Arrived documented as of this encounter Visit Diagnoses Not on filedocumented in this encounter Care Teams Linux Support Engineer Relationship Specialty Start Date End Date Lolly Oliveira MD [address] [place] [address] PCP - General 07/17/13 documented as of this encounter
--- OUTSIDE RECORDS SUMMARY | 2024-03-24 11:53 | XMS_ITS | Encounter Summary ---
[place] [address] Care Team Providers Care M1A1 Tank Crewman Name Role Phone Lolly Oliveira MD Primary Care Provider [phone] Encounter Details Date Type Department Care Team [...] AM EST Hospital Encounter Non-[place] [address] Arrived documented as of this encounter Visit Diagnoses Not on filedocumented in this encounter Care Teams M1A1 Tank Crewman Relationship Specialty Start Date End Date Lolly Oliveira MD [address] [place] [address] PCP - General 07/17/13 documented as of this encounter
--- OUTSIDE RECORDS SUMMARY | 2024-03-24 11:53 | XMS_ITS | Encounter Summary ---
Author Organization [facility] [place] [address] Care Team Providers Care Ground Control Approach Technician Name Role Phone Lolly Oliveira MD Primary Care Provider [phone] Reason for Referral * Consultation (Routine) - Closed Specialty Diagnoses / Procedures Referred By Contact Referred To Contact Electrophysiology / Cardiology Diagnoses Left bundle branch block Cardiomyopathy, unspecified type AT MINIMUM PT NEEDS CONSIDERATION FOR DEFIBRILLATOR, ALSO CANDIDATE FOR RESYNCHRONIZATION THERAPY HER QRS IS >0.16 Lolly Oliveira MD [address] [place] [address] [facility] [address] [place] [phone] Referral ID Status Reason Start Date Expiration Date V isits Requested Visits Authorized [id number] Closed Consult, Test & Treat PCP Updated and/or Approved 04/30/2022 04/30/2023 6 6 Encounter Details Date Type Department Care Team (Latest Contact Info) Description 04/30/2022 Transcribe Orders eDH Incoming Referrals [phone] Lolly Oliveira MD [address] [place], [place] [id number] Left bundle branch block; Cardiomyopathy, unspecified type [...] AM EST Hospital Encounter [place] [address] Arrived Scheduled Referrals Name Type Priority Associated Diagnoses Orde r Schedule Referral to Cardiology Outpatient Referral Routine Left bundle branch block Cardiomyopathy, Unspecified Type Ordered: 04/30/2022 documented as of this encounter Visit Diagnoses Diagnosis Left bundle branch block Other left bundle branch block Cardiomyopathy, unspecified type documented in this encounter Care Teams Ground Control Approach Technician Relationship Specialty Start Date End Date Lolly Oliveira MD [address] [place] [address] PCP - General 07/17/13 documented as of this encounter
--- OUTSIDE RECORDS SUMMARY | 2024-03-24 11:53 | XMS_ITS | Encounter Summary ---
Author Organization [facility] [place] [address] Care Team Providers Care Wellness Nurse Rn Name Role Phone Lolly Oliveira MD Primary Care Provider [phone] Encounter Details Date Type Department Care Team (Late st Contact Info) Description 05/18/2023 Refill Dermatology at [address] [address] Nora Meredith LPN Social History [...] patient. She voiced understanding. Order sent to [facility] drug. documented in this encounter Plan of Treatment Upcoming Encounters Date Type Department Care Team (Late st Contact Info) Description 04/15/2024 10:00 AM EST Hospital Encounter Non-[place] [address] Arrived documented as of this encounter Visit Diagnoses Not on filedocumented in this encounter Care Teams Wellness Nurse Rn Relationship Specialty Start Date End Date Lolly Oliveira MD [address] [place] [address] PCP - General 07/17/13 documented as of this encounter
--- OUTSIDE RECORDS SUMMARY | 2024-03-24 11:53 | XMS_ITS | Encounter Summary ---
Author Organization [facility] [place] [address] Care Team Providers Care Director Of Manufacturing Operations Name Role Phone Lolly Oliveira MD Primary Care Provider [phone] Reason for Visit * Reason Comments Follow-up Encounter Details Date Type Department Care Team (Late st Contact Info) Description 05/21/2022 8:00 AM EDT Office Visit Dermatology at [address] [phone] Clay Ramírez MD [address] [facility] [place] [address] Psoriasis, guttate Social History Tobacco Use Types [...] CARE CENTER Hospital Encounter Non-Invasive [place] [address] Arrived documented as of this encounter Visit Diagnoses Diagnosis Psoriasis, guttate Other psoriasis documented in this encounter Care Teams Director Of Manufacturing Operations Relationship Specialty Start Date End Date Lolly Oliveira MD [address] [place] [address] PCP - General 07/17/13 documented as of this encounter
--- OUTSIDE RECORDS SUMMARY | 2024-03-24 11:53 | XMS_ITS | Encounter Summary ---
[place] [address] Care Team Providers Care Diesel Fitter Mechanic Name Role Phone Lolly Oliveira MD Primary Care Provider [phone] Encounter Details Date Type Department Care Team [...] AM EST Hospital Encounter [place] [address] Arrived documented as of this encounter Visit Diagnoses Not on filedocumented in this encounter Care Teams Diesel Fitter Mechanic Relationship Specialty Start Date End Date Lolly Oliveira MD [address] [place] [address] PCP - General 07/17/13 documented as of this encounter
--- OUTSIDE RECORDS SUMMARY | 2024-03-24 11:53 | XMS_ITS | Encounter Summary ---
Author Organization [facility] Address [facility] [place] [address] Care Team Providers Care Independent Distributor Name Role Phone Lolly Oliveira MD Primary Care Provider [phone] Encounter Details Date Type Department Care Team (Late st Contact Info) Description 05/03/2023 Telephone Cardiology at [address] [phone] Lalit Mcmahon MD [facility] [place] [address] Social History Tobacco Use Types Packs/Day Years [...] AM EST Hospital Encounter [place] [address] Arrived documented as of this encounter Visit Diagnoses Not on filedocumented in this encounter Care Teams Independent Distributor Relationship Specialty Start Date End Date Lolly Oliveira MD [address] [place] [address] PCP - General 07/17/13 documented as of this encounter
--- OUTSIDE RECORDS SUMMARY | 2024-03-24 11:53 | XMS_ITS | Encounter Summary ---
Author Organization [facility] [place] [address] Care Team Providers Care Screw Eye Assembler Name Role Phone Lolly Oliveira MD Primary Care Provider [phone] Encounter Details Date Type Department Care Team (Latest Contact Info) Description 01/21/2023 10:00 AM EST - 01/21/2023 11:59 PM EST Hospital Encounter [place] [phone] Discharge Disposition: Home Social History Tobacco Use [...] with spacer fluticasone propionate (Flonase) 50 mcg/actuation [place], Suspension 1 spray by Each Nare route [...] AM EST Hospital Encounter Non-[place] [address] Arrived documented as of this [...] on filedocumented in this encounter Care Teams Screw Eye Assembler Relationship Specialty Start Date End Date Lolly Oliveira MD [address] [place] [address] PCP - General 07/17/13 documented as of this encounter
--- OUTSIDE RECORDS SUMMARY | 2024-03-24 11:53 | XMS_ITS | Encounter Summary ---
Author Organization [facility] Address [facility] [place] [address] Care Team Providers Care Sql Report Analyst Name Role Phone Lolly Oliveira MD Primary Care Provider [phone] Encounter Details Date Type Department Care Team (Late st Contact Info) Description 07/16/2022 Telephone Cardiology at [address] [phone] Lalit Mcmahon MD [facility] [place] [address] Social History Tobacco Use Types Packs/Day Years [...] her nonischemic cardiomyopathy. She is scheduled for ANTENNA INSTALLER-D implantation next week and looks forward to the procedure. We will see each other next week. Lalit Mcmahon MD [facility] Cardiac Electrophysiology 07/16/2022 8:52 AM documented in this encounter Plan of Treatment Upcoming Encounters Date Type Department Care Team (Late st Contact Info) Description 04/15/2024 10:00 AM EST Hospital Encounter Non-Invasive [place] [address] Arrived documented as of this encounter Visit Diagnoses Not on filedocumented in this encounter Care Teams Sql Report Analyst Relationship Specialty Start Date End Date Lolly Oliveira MD [address] [place] [address] PCP - General 07/17/13 documented as of this encounter
--- OUTSIDE RECORDS SUMMARY | 2024-03-24 11:53 | XMS_ITS | Encounter Summary ---
Author Organization [facility] Address [facility] [place] [address] Care Team Providers Care Business Analysis Specialist Name Role Phone Lolly Oliveira MD Primary Care Provider [phone] Encounter Details Date Type Department Care Team (Late st Contact Info) Description 03/15/2023 Orders Only Cardiology at [address] [address] Lalit Mcmahon MD [facility] [address] Nonischemic cardiomyopathy; Biventricular ICD (implantable cardioverter-defibrill ator) [...] AM EST Hospital Encounter [place] [address] Arrived documented as of this encounter Visit Diagnoses Diagnosis Nonischemic cardiomyopathy Other primary cardiomyopathies Biventricular ICD (implantable cardioverter-defibrillator) in place documented in this encounter Care Teams Business Analysis Specialist Relationship Specialty Start Date End Date Lolly Oliveira MD [address] [place] [address] PCP - General 07/17/13 documented as of this encounter
--- OUTSIDE RECORDS SUMMARY | 2024-03-24 11:53 | XMS_ITS | Encounter Summary ---
Author Organization [facility] [place] [address] Care Team Providers Care Pararescue Craftsman Name Role Phone Lolly Oliveira MD Primary Care Provider [phone] Reason for Visit * Auth/Cert (Routine) Specialty Diagnoses / Procedures Referred By Contac t Referred To Contact Diagnoses Left bundle-branch block, unspecified Other cardiomyopathies Left bundle branch block [I44.7]Nonischemic cardiomyopathy [I42.8] Procedures PRG CATH PLMT LEFT HEART CATH & ARTS W/INJ & ANGIO IMG S&I ELECTROPHYSIOLOGY PROCEDURE Lalit Mcmahon MD [facility] [place] [address] [facility] Referral ID Status Reason Start Date Expiration Date Visits Re quested Visits Authorized [id number] 1 1 Encounter Details Date Type Department Care Team (Late st Contact Info) Description 07/23/2022 1:00 PM EDT - 07/23/2022 5:30 PM EDT Surgery [place] [address] Lalit Mcmahon MD [facility] [place] [address] ELECTROPHYSIOLOGY PROCEDURE Social History Tobacco Use Types [...] Luna Mott Patient Age: 71 y.o. Language: Bermudian Race: White Ethnicity: Not nor Admit date: 07/23/2022 Discharge date and time: 07/24/22 Attending Physician: Lalit Mcmahon MD Discharge Physician: Lalit Mcmahon MD Follow-up Recommendations for Providers: - s/p PORTRAIT STUDIO PHOTOGRAPHER-D implant - post implant QRS 130 ms [...] Procedures: 07/23/22: [facility] PORTRAIT STUDIO PHOTOGRAPHER-D implant History of Presentation: 71 y.o. female with a history of HFrEF, LBBB, QRS >150, NYHA II who is POD#1 of PORTRAIT STUDIO PHOTOGRAPHER-D implant ([employer]). Hospital Course: Elective admission for PORTRAIT STUDIO PHOTOGRAPHER-D implant Admitted post-implant for pain management, telemetry [...] (heart failure with reduced ejection fraction) [I50.20] PORTRAIT STUDIO PHOTOGRAPHER-D implant Admission Condition: good Indication for Admission: [...] g Refills: 3 fluticasone propionate 50 mcg/actuation [place], Suspension Commonly known as: Flonase 1 spray [...] the incision. Make sure to use a historic clothing and costume maker (such as a towel) in between [...] F. The office scheduling phone number is [phone]. ARM MOVEMENT RESTRICTIONS POST-IMPLANT - Do not [...] please call the Cardiac ElectrophysiologyTriage Nurse at [phone], option 3. General Instructions None Discharge References/Attachments None Lalit Mcmahon MD S Cardiac Electrophysiology 07/24/2022 12:33 PM documented in this encounter Discharge Instructions * Patient Instructions* Fadi Nunez MD - 07/24/2022 8:10 AM EDT FINAL ICD/PACEMAKER RECOMMENDATIONS: 1. Standard post implant discharge instructions (see below): 2. Medications as listed above. You may use ice packs over the incision. Make sure to use a historic clothing and costume maker (such as a towel) in between [...] F. The office scheduling phone number is [phone]. ARM MOVEMENT RESTRICTIONS POST-IMPLANT - Do not [...] please call the Cardiac ElectrophysiologyTriage Nurse at [phone], option 3. documented in this encounter Medications [...] with spacer fluticasone propionate (Flonase) 50 mcg/actuation [place], Suspension 1 spray by Each Nare route [...] Cardiac Electrophysiology Post-Implant Device Interrogation Luna Mott [id number] 07/24/2022 History: Luna Mott is a 71 y.o. female with a history of HFrEF, LBBB, QRS >150, NYHA II who is POD#1 of PORTRAIT STUDIO PHOTOGRAPHER-D implant ([employer]). Overall feels well this morning. Ready [...] WOB Neuro- A&Ox3 Device Interrogation: Data ?? Creel Hand Model # Serial # Generator [employer] [id number] Atrial Lead [employer] [id number] [id number] RV Lead [employer] [id number] LV Lead [employer] [id number] ?? Diagnostics Pacing Mode: DDD 60-130 Underlying Rhythm: [place] Atrial Episodes: None Ventricular Episodes: None FINAL PROGRAMMING: Pacing: Mode Lower rate (ppm) Upper rate (ppm) ?? DDD 60 130 VF: Rate (bpm) #Antitachycardia pacing First shock energy (J) ?? 200 Quick convert 41 VT: 170 Monitor only Monitor only ? Battery and Leads Impedances (ohms) Sensing (mV) Thresholds HV RA RV LV RA RV LV RA RV LV 73 [phone] (LVa) 7.7 13.1 >25 0.4V @ 0.4 ms 0.4V @ 0.4 ms 0.5 V @ 1.0 ms POD#1 CXR: All leads in nominal positioning Impression: 71 y.o. female who is s/p PORTRAIT STUDIO PHOTOGRAPHER-D implant for LBBB, NYHA II, HFrEF. - [...] [facility]) Fadi Nunez MD 07/24/2022 Pager: [phone] I met with the patient today and [...] agreement. ? Dr. Lalit Mcmahon, electrophysiology attending ([id number]) * Zaria Wright RN - 07/23/2022 8:28 [...] HF, QRS > 150 ms presents for PORTRAIT STUDIO PHOTOGRAPHER-D placement. ROS: Denies recent fevers or chills [...] 0.9) flush 5 mL 5 mL Intravenous [id number] ramos MD ??? sodium chloride 0.9 % [...] HF, QRS > 150 ms presents for PORTRAIT STUDIO PHOTOGRAPHER-D placement. Backup would be LBBAP lead. Antibiotics: cefazolin Rationales for, intended benefits and potential risk of planned procedures reviewed. The patient indicated understanding and agreement with the plan. Informed consent signed. Procedure checklist completed. Fadi Nunez MD Cardiac Electrophysiology Fellow [facility] Pager [phone] 07/23/2022 I met with the patient today [...] agreement. ? Dr. Lalit Mcmahon, electrophysiology attending ([id number]) documented in this encounter Miscellaneous Notes * Brief Op Note - Lalit Mcmahon MD - 07/23/2022 4:04 PM EDT Brief Operative Note Patient Name: Luna Mott : [id number] MR#: [id number] Case Date: 07/23/2022 Surgeon: Surgeon(s) and Role: [...] AM EST Hospital Encounter Non-Invasive [place] [address] Arrived Scheduled Orders Name Type Priority Associated Diagnoses Orde r Schedule EKG 12 Lead ECG Routine Cardiac resynchronization therapy defibrillator (PORTRAIT STUDIO PHOTOGRAPHER-D) in place One Time for 1 Occurrences [...] (Bezet) 522 ms MUSE SYSTEM Calculated R [place] 78 degrees MUSE SYSTEM Calculated T [place] -71 degrees MUSE SYSTEM INTERPRETATION AV dual-paced [...] who have questions please contact the health workforce investment act career manager that requested your imaging first. ? [...] patients who have questions please contactthe health workforce investment act career manager that requested your imaging first. Lalit Mcmahon MD IMG DX ORDERABLES * ELECTROPHYSIOLOGY PROCEDURE (07/23/2022 1:11 PM EDT) Anatomical Region Laterality Modality Other Narrative 07/23/2022 4:24 PM EDT Table formatting from the original result was not included. BIVENTRICULAR ICD IMPLANTATION Edge Burnisher Uppers: Lalit Mcmahon MD Fellow: Fadi Nunez MD [...] lateral branch of the CS in the PORTUGUESE view. This branch was cannulated with a [...] the entire procedure. LEAD AND GENERATOR DATA: Creel Hand Model # Serial # Generator [employer] [id number] Atrial Lead [employer] [id number] [id number] RV Lead [employer] [id number] [id number] LV Lead [employer] [id number] PACE/SENSE DATA: Sensed wave (mV) Threshold (V) [...] (cGycm2) 300 CONCLUSIONS: Successful implantation of a [employer] biventricular ICD for primary prevention and treatment of symptoms related to congestive heart failure. Follow up in EP clinic in 1-2 months. Procedures performed: new ICD system ( cpt 35434-C0); implant LV lead at time of ICD insertion (cpt 04434) I have read, edited and approve of this report: Lalit Mcmahon MD [facility] Cardiac Electrophysiology 07/23/2022 4:22 PM Procedure Note Lalit Mcmahon MD - 07/23/2022 BIVENTRICULAR ICD IMPLANTATION Edge Burnisher Uppers: Lalit Mcmahon MD Fellow: Fadi Nunez MD [...] appropriate lateralbranch of the CS in the PORTUGUESE view. This branch was cannulated with a [...] in the entireprocedure. LEAD AND GENERATOR DATA: Creel Hand Model # Serial # Generator [employer] [id number] Atrial Lead [employer] [id number] [id number] RV Lead [employer] 0672 [id number] LV Lead [employer] [id number] [id number] PACE/SENSE DATA: Sensed wave (mV) Threshold (V) [...] (cGycm2) 300 CONCLUSIONS: Successful implantation of a [employer] biventricular ICD forprimary prevention and treatment of symptoms related to congestive heartfailure. Follow up in EP clinic in 1-2 months. Procedures performed: new ICD system ( cpt 62651-M4); implant LV lead attime of ICD insertion (cpt 89923) I have read, edited and approve of [...] CARE TEST O RDERABLES Performing Organization Address City/[facility]/ZIP Co de Phone Number [facility] [place] [address] * EKG 12 Lead (07/23/2022 12:33 PM EDT) Ventricular rate 72 BPM MUSE SYSTEM Atrial Rate 72 BPM MUSE SYSTEM P-R Interval 158 ms MUSE SYSTEM QRS Duration 176 ms MUSE SYSTEM Q-T Interval 458 ms MUSE SYSTEM QTC Calculated (Bezet) 501 ms MUSE SYSTEM Calculated P [place] 34 degrees MUSE SYSTEM Calculated R [place] 12 degrees MUSE SYSTEM Calculated T [place] -173 degrees MUSE SYSTEM INTERPRETATION Normal sinus rhythm Left bundle branch block Abnormal ECG No previous ECGs available Confirmed by MD Salome, Lalit ([id number]) on 07/23/2022 1:19:03 PM MUSE SYSTEM 07/23/2022 12:3 3 PM EDT 07/23/2022 1:19 PM EDT Lalit Mcmahon MD ECG ORDERABLES Performing Organization Address [facility]/ZIP Co de Phone Number MUSE SYSTEM * Differential, Automated (07/23/2022 11:55 AM EDT) Neutrophil % 62.6 % [facility] Neutrophil Absolute 4.14 1.70 - 6.10 x10(3)/[facility] LABORATORY Lymph % 27.0 % [facility] Lymphocytes Abs 1.8 0.9 - 3.2 x10(3)/[facility] LABORATORY Monocyte % 7.3 % [facility] LAB[facility] Monocyte Abs 0.5 0.3 - 0.9 x10(3)/[facility] LABORATORY Eos % 2.3 % [facility] Eosinophils Abs 0.2 0.0 - 0.4 x10(3)/[facility] LABORATORY Basophil % 0.6 % [facility] ITAL LABORATORY Baso Absolute 0.0 0.0 - 0.1 x10(3)/[facility] LABORATORY Immature Gran % 0.20 % [facility] Comment: Immature granulocytes(IG's)percentage and absolute count will include metamyelocytes, myelocytes, and promyelocytes. Blood smears from CBCs yielding IG's will be scanned manually for concordance. If this scan disagrees with the automated IG or if promyelocytes are noted, a manual differential will be performed. Immature Gran Absolute 0.01 0.00 - 0.04 x10(3)/[facility] LABORATORY Blood 07/23/2022 11:5 5 AM EDT 07/23/2022 12:07 PM EDT Narrative Resulting Agency Comment Spec In Lab Lalit Mcmahon MD HEMATOLOGY ORDERABLE S [facility] [place] [address] * Hemogram (07/23/2022 11:55 AM EDT) White Blood Cell 6.6 4.0 - 9.5 x10(3)/[facility] LABORATORY Red Blood Cell 4.50 4.00 - 5.21 x10(6)/[facility] LABORATORY Hemoglobin 13.7 11.7 - 15.5 g/dL [facility] Hematocrit 42.5 35.7 - 45.8 % [facility] Mean Cell Volume 94.4 82.6 - 94.4 fL [facility] Mean Cell Hemoglobin 30.4 27.1 - 32.0 pg [facility] Mean Cell Hemoglobin Concentration 32.2 31.7 - 35.0 g/dL [facility] Platelet 193 145 - 357 x10(3)/[facility] LABORATORY RDW Standard Deviation 45.5 37.0 - 46.0 fL [facility] RDW coefficient of variation 13.2 11.5 - 14.1 % [facility] Mean Platelet Volume 9.5 7.6 - 12.9 fL [facility] NRBC% auto 0.0 % [facility] ITAL LABORATORY NRBC Absolute 0.000 0.000 - 0.000 x10(3)/[facility] LABORATORY Blood 07/23/2022 11:5 5 AM EDT 07/23/2022 12:07 PM EDT Narrative Resulting Agency Comment Spec In Lab Lalit Mcmahon MD HEMATOLOGY ORDERABLE S [facility] [place] [address] * (ABNORMAL) BMP w/fasting Glucose (07/23/2022 11:55 AM EDT) Glucose Fasting 110(H) 65 - 99 mg/dL [facility] Comment: ?Fasting* Glucose Interpretive Criteria [...] of Diabetes Mellitus, Position Statement from the [place] Diabetes Association. ??Diabetes Care, Volume 33, Supplement 1, Mar 2009 Blood Urea Nitrogen 23(H) 8 - 18 mg/dL [facility] Creatinine 1.07 0.70 - 1.20 mg/dL [facility] Sodium 141 135 - 145 mmol/L [facility] Potassium 4.8 3.5 - 5.0 mmol/L [facility] Comment: Please note: ??Patients with [...] Anion Gap 9 5 - 15 mmol/L [facility] Calcium 9.7 8.5 - 10.5 mg/dL [facility] Est Glomerular Filtration Rate 55(L) [...] CHEMISTRY ORDERABLES Performing Organization Address [facility] Co de Phone Number [facility] [place] [address] * Prothrombin Time (07/23/2022 11:55 AM EDT) Prothrombin Time 11.7 9.4 - 12.5 sec [facility] International Normalization Ratio 1.0 [facility] Comment: An INR <2.0 indicates [...] HEMATOLOGY ORDERABLE S Performing Organization Address City/[facility] Co de Phone Number [facility] [place] [address] documented in this encounter Visit Diagnoses Diagnosis HFrEF (heart failure with reduced ejection fraction)- Primary Left bundle branch block Other left bundle branch block Nonischemic cardiomyopathy Other primary cardiomyopathies Cardiac resynchronization therapy defibrillator (PORTRAIT STUDIO PHOTOGRAPHER-D) in place Left bundle branch block Other [...] Routine documented in this encounter Care Teams Pararescue Craftsman Relationship Specialty Start Date End Date Lolly Oliveira MD [address] [place] [address] PCP - General 07/17/13 documented as of this encounter
--- OUTSIDE RECORDS SUMMARY | 2024-03-24 11:53 | XMS_ITS | Encounter Summary ---
Author Organization [facility] Address [facility] [place] [address] Care Team Providers Care Personal Lines Account Manager Name Role Phone Lolly Oliveira MD Primary Care Provider Encounter Details Date Type Department Care Team (Late st Contact Info) Description 11/11/2022 Orders Only Cardiology at [address] [phone] Lalit Mcmahon MD [facility] [place] [address] Nonischemic cardiomyopathy Social History Tobacco Use Types [...] [facility] Hospital Encounter [place] [phone] Arrived documented as of this encounter Visit Diagnoses Diagnosis Nonischemic cardiomyopathy Other primary cardiomyopathies documented in this encounter Care Teams Personal Lines Account Manager Relationship Specialty Start Date End Date Berrian, Lolly M, MD [address] [place] [address] PCP - General 07/17/13 documented as of this encounter
--- OUTSIDE RECORDS SUMMARY | 2024-03-24 11:53 | XMS_ITS | Encounter Summary ---
[place] [address] Care Team Providers Care Chinese Teacher Name Role Phone Lolly Oliveira MD Primary Care Provider [phone] Encounter Details Date Type Department Care Team [...] AM EST Hospital Encounter [place] [address] Arrived documented as of this encounter Visit Diagnoses Not on filedocumented in this encounter Care Teams Chinese Teacher Relationship Specialty Start Date End Date Lolly Oliveira MD [address] [place] [address] PCP - General 07/17/13 documented as of this encounter
--- OUTSIDE RECORDS SUMMARY | 2024-03-24 11:53 | XMS_ITS | Encounter Summary ---
Author Organization [facility] [place] [address] Care Team Providers Care Bulk Plant Operator Name Role Phone Lolly Oliveira MD Primary Care Provider [phone] Encounter Details Date Type Department Care Team (Late st Contact Info) Description 03/15/2023 Telephone Cardiology at [address] [phone] Saranya Ma Social History Tobacco Use Types [...] have an echo done at [facility] prior to her appt withscm there on 05/12/23. Message sent to Dr. Mcmahon asking him to put order in if he would like her to have this done. Saranya Ma Sr. Clinical Procedure [place]/Senior Property Accountant documented in this encounter Plan of Treatment Upcoming Encounters Date Type Department Care Team (Late st Contact Info) Description 04/15/2024 10:00 AM EST Hospital Encounter Non-[place] [address] Arrived documented as of this encounter Visit Diagnoses Not on filedocumented in this encounter Care Teams Bulk Plant Operator Relationship Specialty Start Date End Date Lolly Oliveira MD [address] [place] [address] PCP - General 07/17/13 documented as of this encounter
--- OUTSIDE RECORDS SUMMARY | 2024-03-24 11:53 | XMS_ITS | Encounter Summary ---
[place] [address] Care Team Providers Care Gas Station Operator Name Role Phone Lolly Oliveira MD Primary Care Provider [phone] Encounter Details Date Type Department Care Team (Late st Contact Info) Description 04/09/2022 Refill Dermatology at [address] [address] Nora Meredith, DRY KILN OPERATOR Social History Tobacco Use Types Packs/Day Years Used Date Smoking Tobacco: Never Sex and Gender Information Value Date Recorded Sex Assigned at Not on file Gender Identity Not on file Sexual Orientation Not on file documented as of this encounter Plan of Treatment Upcoming Encounters Date Type Department Care Team (Late st Contact Info) Description 04/15/2024 10:00 AM [facility] Hospital Encounter Non-[place] [address] Arrived documented as of this encounter Visit Diagnoses Not on filedocumented in this encounter Care Teams Gas Station Operator Relationship Specialty Start Date End Date Lolly Oliveira MD [address] [place] [address] PCP - General 07/17/13 documented as of this encounter
--- OUTSIDE RECORDS SUMMARY | 2024-03-24 11:53 | XMS_ITS | Encounter Summary ---
Author Organization [facility] [place] [address] Care Team Providers Care Taxi Truck Driver Name Role Phone Lolly Oliveira MD Primary Care Provider [phone] Encounter Details Date Type Department Care Team (Latest Contact Info) Description 01/16/2024 10:00 AM EST - 01/16/2024 11:59 PM EST Hospital Encounter Non-Invasive [place] [address] Discharge Disposition: Home Social History Tobacco Use [...] spacer fluticasone propionate (Flonase) 50 mcg/actuation [place], Suspension 1 spray by Each Nare route daily as needed. documented as of this encounter Plan of Treatment Upcoming Encounters Date Type Department Care Team (Late st Contact Info) Description 04/15/2024 10:00 AM EST Hospital Encounter Non-Invasive [place] [address] Arrived documented as of this encounter Procedures [...] on filedocumented in this encounter Care Teams Taxi Truck Driver Relationship Specialty Start Date End Date Lolly Oliveira MD [address] [place] [address] PCP - General 07/17/13 documented as of this encounter
--- OUTSIDE RECORDS SUMMARY | 2024-03-24 11:53 | XMS_ITS | Encounter Summary ---
Author Organization [facility] [place] [address] Care Team Providers Care Dial Painter Name Role Phone Lolly Oliveira MD Primary Care Provider [phone] Reason for Visit * Reason Comments Psoriasis Encounter Details Date Type Department Care Team (Late st Contact Info) Description 04/09/2022 1:45 PM EST Office Visit Dermatology at [address] [address] Clay Ramírez MD [address] [facility], [place] [address] Psoriasis, guttate Social History Tobacco Use Types [...] AM EST Hospital Encounter [place] [address] Arrived documented as of this encounter Visit Diagnoses Diagnosis Psoriasis, guttate Other psoriasis documented in this encounter Care Teams Dial Painter Relationship Specialty Start Date End Date Lolly Oliveira MD [address] [place] [address] PCP - General 07/17/13 documented as of this encounter
--- OUTSIDE RECORDS SUMMARY | 2024-03-24 11:53 | XMS_ITS | Encounter Summary ---
Author Organization [facility] [place] [address] Care Team Providers Care Learning Disabilities Specialist Name Role Phone Lolly Oliveira MD Primary Care Provider [phone] Encounter Details Date Type Department Care Team (Late st Contact Info) Description 11/16/2022 Telephone Cardiology at [address] [phone] Luna Rousseau, RN Social History Tobacco Use Types Packs/Day Years Used Date Smoking Tobacco: Never Alcohol Use Standard Drinks/Week Comments Not Currently 0 (1 standard drink = 0.6 oz pur e alcohol) [facility] Inpatient Questions Answer Date Recorded Does Anyone [...] BP today was 118/57 at CR at [facility]. Pt is going twice a week to [...] CARE CENTER Hospital Encounter [place] [address] Arrived documented as of this encounter Visit Diagnoses Not on filedocumented in this encounter Care Teams Learning Disabilities Specialist Relationship Specialty Start Date End Date Lolly Oliveira MD [address] [place] [address] PCP - General 07/17/13 documented as of this encounter
--- OUTSIDE RECORDS SUMMARY | 2024-03-24 11:53 | XMS_ITS | Encounter Summary ---
Author Organization [facility] [address] Care Team Providers Care Freight Engineer Name Role Phone Lolly Oliveira MD [...] MD [facility] [place] [address] [facility] [place] [address] Referral ID Status Reason Start Date Expiration Date V isits Requested Visits Authorized [id number] Closed Specialty Service Requested 05/06/2022 11/07/2023 2 1 Encounter Details Date Type Department Care Team (Latest Contact Info) Description 07/14/2022 9:09 AM EDT - 07/14/2022 11:59 PM EDT Hospital [place] [address] Lalit Mcmahon MD [facility] [place] [address] Discharge Disposition: Home Social History Tobacco Use [...] with spacer fluticasone propionate (Flonase) 50 mcg/actuation [place], Suspension 1 spray by Each Nare route [...] AM EST Hospital Encounter Non[place] [address] Arrived documented as of this [...] documented in this encounter Care Teams Freight Engineer Relationship Specialty Start Date End Date Lolly Oliveira MD [address] [place] [address] PCP - General 07/17/13 documented as of this encounter
--- OUTSIDE RECORDS SUMMARY | 2024-03-24 11:53 | XMS_ITS | Encounter Summary ---
Author Organization [facility] [place] [address] Care Team Providers Care Zig Zag Stitcher Name Role Phone Lolly Oliveira MD Primary Care Provider [phone] Reason for Visit * Reason Comments Follow-up Encounter Details Date Type Department Care Team (Late st Contact Info) Description 07/02/2022 8:00 AM EDT Office Visit Dermatology at [address] [phone] Clay Ramírez MD [address] [facility], [place] [address] Psoriasis, guttate Social History Tobacco Use Types [...] MEDICAL CENTER Hospital Encounter Non-[place] [address] Arrived documented as of this encounter Visit Diagnoses Diagnosis Psoriasis, guttate Other psoriasis documented in this encounter Care Teams Zig Zag Stitcher Relationship Specialty Start Date End Date Lolly Oliveira MD [address] [place] [address] PCP - General 07/17/13 documented as of this encounter
--- OUTSIDE RECORDS SUMMARY | 2024-03-24 11:53 | XMS_ITS | Encounter Summary ---
Author Organization [facility] [place] [address] Care Team Providers Care Thickener Operator Name Role Phone Lolly Oliveira MD Primary Care Provider [phone] Reason for Visit * Reason Onset Date Comments Pre Procedure Call 07/01/2022 Encounter Details Date Type Department Care Team (Late st Contact Info) Description 07/01/2022 Telephone Cardiology at [address] [phone] Rosenda Sutton RN Pre Procedure Call Social History Tobacco Use Types Packs/Day Years Used Date Smoking Tobacco: Never Sex and Gender Information Value Date Recorded Sex Assigned at Not on file Gender Identity Not on file Sexual Orientation Not on file documented as of this encounter Miscellaneous Notes * Telephone Encounter - Rosenda Sutton RN - 07/01/2022 9:30 AM EDTSummary: Pre Procedure Call: WOOD COATER implant EP MASONRY INSTALLER COORDINATION CHECKLIST Patient Name: Luna Mott Patient Performing Clay Grinder: Lalit Mcmahon Referring Provider: Lolly Oliveira Date of Procedure: 07/23/22 Arrival Time/ Case Time: 12:00 pm / 1:00 pm Check In Location: [place] [facility] 4W Date Patient was Called: 07/01/22 Procedure: WOOD COATER Company: [employer] Type: WOOD COATER-D Laterality: LEFT Orders: Yes Lab Orders: Yes [...] overnight , understands that they will need clark driver on day of discharge Notified pt that Goff catheter may be placed on day of procedure depending on type & duration of case. documented in this encounter Plan of Treatment Upcoming Encounters Date Type Department Care Team (Late st Contact Info) Description 04/15/2024 10:00 AM [facility] Hospital Encounter Non-[place]vasive [place] [address] Arrived documented as of this encounter Visit Diagnoses Not on filedocumented in this encounter Care Teams Thickener Operator Relationship Specialty Start Date End Date Lolly Oliveira MD [address] [place] [address] PCP - General 07/17/13 documented as of this encounter
--- OUTSIDE RECORDS SUMMARY | 2024-03-24 11:53 | XMS_ITS | Encounter Summary ---
Author Organization [facility] [place] [address] Care Team Providers Care Instrument Sterilizer Name Role Phone Lolly Oliveira MD Primary Care Provider [phone] Reason for Visit * Reason Onset Date Comments Post Procedure Call 07/30/2022 Encounter Details Date Type Department Care Team (Late st Contact Info) Description 07/30/2022 Notes Only Cardiology at [address] [phone] Rosenda Sutton, RN Post Procedure Call Social History Tobacco Use Types Packs/Day Years Used Date Smoking Tobacco: Never Alcohol Use Standard Drinks/Week Comments Not Currently 0 (1 standard drink = 0.6 oz pur e alcohol) [facility] Inpatient Questions Answer Date [...] 07/30/2022 9:59 AM EDTSummary: Post Procedure Call: FORMAL WEAR RENTAL CLERK implant EP RN Post-Procedure Note: Date [...] Note: Follow-up Recommendations for Providers: - s/p FORMAL WEAR RENTAL CLERK-D implant - post implant QRS 130 [...] MEDICAL CENTER Hospital Encounter Non-Invasive [place] [address] Arrived documented as of this encounter Visit Diagnoses Not on filedocumented in this encounter Care Teams Instrument Sterilizer Relationship Specialty Start Date End Date Lolly Oliveira MD [address] [place] [address] PCP - General 07/17/13 documented as of this encounter
--- OUTSIDE RECORDS SUMMARY | 2024-03-24 11:53 | XMS_ITS | Encounter Summary ---
Author Organization [facility] [place] [address] Care Team Providers Care Aadc Plans Staff Officer Name Role Phone Lolly Oliveira MD Primary Care Provider [phone] Encounter Details Date Type Department Care Team (Latest Contact Info) Description 10/23/2022 10:00 AM EDT - 10/23/2022 11:59 PM EDT Hospital Encounter Non-Invasive [place] [address] Discharge Disposition: Home Social History Tobacco Use [...] spacer fluticasone propionate (Flonase) 50 mcg/actuation [place], Suspension 1 spray by Each Nare route [...] Hospital Encounter Non-Invasive [place] [address] Arrived documented as of this [...] on filedocumented in this encounter Care Teams Aadc Plans Staff Officer Relationship Specialty Start Date End Date Lolly Oliveira MD [address] [place] [address] PCP - General 07/17/13 documented as of this encounter
--- OUTSIDE RECORDS SUMMARY | 2024-03-24 11:54 | XMS_ITS | Encounter Summary ---
Author Organization [facility] [place] [address] Care Team Providers Care Log Tumbler Name Role Phone Lolly Oliveira MD Primary Care Provider [phone] Encounter Details Date Type Department Care Team (Late st Contact Info) Description 04/01/2021 3:30 PM EST Office Visit Dermatology at [address] [phone] Clay Ramírez MD [address] [facility] [address], [place] [address] Psoriasis, guttate Social History Tobacco Use Types [...] AM EST Hospital Encounter Non-[place] [address] Arrived documented as of this encounter Visit Diagnoses Diagnosis Psoriasis, guttate Other psoriasis documented in this encounter Care Teams Log Tumbler Relationship Specialty Start Date End Date Lolly Oliveira MD [address] [place] [address] PCP - General 07/17/13 documented as of this encounter
--- OUTSIDE RECORDS SUMMARY | 2024-03-24 11:54 | XMS_ITS | Encounter Summary ---
Author Organization [facility] [place] [address] Care Team Providers Care Dock Boss Name Role Phone Lolly Oliveira MD Primary Care Provider Encounter Details Date Type Department Care Team (Latest Contact Info) Description 07/26/2013 9:45 AM EDT - 07/26/2013 11:59 PM EDT Hospital [place] [address] Mammographic microcalcification Social History Tobacco Use Types [...] AM EST Hospital Encounter Non-[place] [address] Arrived documented as of this encounter Procedures [...] microcalcification documented in this encounter Care Teams Dock Boss Relationship Specialty Start Date End Date Lolly Oliveira MD [address] [place] [address] PCP - General 07/17/13 documented as of this encounter
--- OUTSIDE RECORDS SUMMARY | 2024-03-24 11:54 | XMS_ITS | Encounter Summary ---
Author Organization [facility] [place] [address] Care Team Providers Care Testing Consultant Name Role Phone Lolly Oliveira MD Primary Care Provider [phone] Encounter Details Date Type Department Care Team (Late st Contact Info) Description 07/26/2013 [place] [address] Eleno Christian MD Social History [...] st Contact Info) Description 04/15/2024 10:00 AM [facility] Hospital Encounter Non-[place] [address] Arrived documented as of this encounter Visit Diagnoses Not on filedocumented in this encounter Care Teams Testing Consultant Relationship Specialty Start Date End Date Lolly Oliveira MD [address] [place] [address] PCP - General 07/17/13 documented as of this encounter
--- OUTSIDE RECORDS SUMMARY | 2024-03-24 11:54 | XMS_ITS | Encounter Summary ---
Author Organization [facility] [place] [address] Care Team Providers Care Stenotype Operator Name Role Phone Lolly Oliveira MD Primary Care Provider [phone] Encounter Details Date Type Department Care Team (Latest Contact Info) Description 07/20/2013 9:26 AM EDT - 07/20/2013 11:59 PM EDT Hospital [place] [address] CLINIC, Lolly So MD [address] [place], [place] [id number] Mammographic microcalcification Discharge Disposition: Home Social History [...] Encounter Non-Invasive [place] [address] Arrived documented as of this encounter Procedures [...] does not layer and, therefore, are not telephone service representative of milk of calcium. Again, [...] does not layer and, therefore, are not telephone service representative of milk of calcium. Again, these have an amorphous andpunctate appearance and remain indeterminate. Stereotactic guided biopsy isrecommended. Alia Fraire MD IMG MAMMO ORDERABLES documented in this encounter Visit Diagnoses Diagnosis Mammographic microcalcification documented in this encounter Care Teams Stenotype Operator Relationship Specialty Start Date End Date Lolly Oliveira MD [address] [place] [address] PCP - General 07/17/13 documented as of this encounter
--- OUTSIDE RECORDS SUMMARY | 2024-03-24 11:54 | XMS_ITS | Encounter Summary ---
Author Organization [facility] [place] [address] Care Team Providers Care General Machinist Name Role Phone Unavailable Primary Care Provider Unavailabl e Encounter Details Date Type Department Care Team (Late st Contact Info) Description 07/14/2013 [place] [address] Eleno Christian MD Social History Tobacco Use [...] Hospital Encounter Non[place] [address] Arrived documented as of this encounter Visit Diagnoses Not on filedocumented in this encounter
--- OUTSIDE RECORDS SUMMARY | 2024-03-24 11:54 | XMS_ITS | Encounter Summary ---
Author Organization [facility] [place] [address] Care Team Providers Care Chief Ophthalmic Technician Name Role Phone Lolly Oliveira MD Primary Care Provider [phone] Reason for Visit * Reason Comments Follow-up Encounter Details Date Type Department Care Team (Late st Contact Info) Description 06/06/2021 8:45 AM EDT Office Visit Dermatology at [address] [address] Clay Ramírez MD [address] [facility] [place] [address] Psoriasis, guttate Social History Tobacco Use Types [...] Encounter Non-Invasive [place] [address] Arrived documented as of this encounter Visit Diagnoses Diagnosis Psoriasis, guttate Other psoriasis documented in this encounter Care Teams Chief Ophthalmic Technician Relationship Specialty Start Date End Date Lolly Oliveira MD [address] [place] [address] PCP - General 07/17/13 documented as of this encounter
--- OUTSIDE RECORDS SUMMARY | 2024-03-24 11:54 | XMS_ITS | Encounter Summary ---
Author Organization [facility] [place] [address] Care Team Providers Care Manager International Name Role Phone Unavailable Primary Care Provider Unavailabl e Encounter Details Date Type Department Care Team (Late st Contact Info) Description 07/14/2013 External Results XRay at [address] [place] [address] Provider, Scanning Social History Tobacco Use Types [...] Hospital Encounter Non-Invasive Cardiology Lab [facility] [place] [address] Arrived documented as of this encounter Procedures [...]
--- OUTSIDE RECORDS SUMMARY | 2024-03-24 11:54 | XMS_ITS | Encounter Summary ---
Author Organization [place] [address] Care Team Providers Care Designer Writer Name Role Phone Lolly Oliveira MD Primary Care Provider [phone] Encounter Details Date Type Department Care Team (Late st Contact Info) Description 10/09/2021 Telephone Dermatology at [address] [address] oNra Meredith LPN Social History [...] [facility]ICAL CENTER Hospital Encounter Non-Invasive [place] [address] Arrived documented as of this encounter Visit Diagnoses Not on filedocumented in this encounter Care Teams Designer Writer Relationship Specialty Start Date End Date Lolly Oliveira MD [address] [place] [address] PCP - General 07/17/13 documented as of this encounter
--- OUTSIDE RECORDS SUMMARY | 2024-03-24 11:54 | XMS_ITS | Encounter Summary ---
Author Organization [facility] [place] [address] Care Team Providers Care Finishing Range Operator Name Role Phone Lolly Oliveira MD Primary Care Provider [phone] Encounter Details Date Type Department Care Team (Late st Contact Info) Description 06/29/2011 [place] [address] Eleno Christian MD Social History Tobacco Use [...] CARE FACILITY Hospital Encounter Non[place] [address] Arrived documented as of this encounter Procedures [...] on filedocumented in this encounter Care Teams Finishing Range Operator Relationship Specialty Start Date End Date Lolly Oliveira MD [address] [place] [address] PCP - General 07/17/13 documented as of this encounter
--- OUTSIDE RECORDS SUMMARY | 2024-03-24 11:54 | XMS_ITS | Encounter Summary ---
[place] [address] Care Team Providers Care Development Planner Name Role Phone Lolly Oliveira MD Primary Care Provider [phone] Encounter Details Date Type Department Care Team (Late st Contact Info) Description 07/17/2013 [place] [address] Lolly Oliveira MD [address] [place], [place] [id number] Social History Tobacco Use Types Packs/Day Years [...] AM EST Hospital Encounter Non[place] [address] Arrived documented as of this encounter Procedures Procedure Name Priority Date/Time Associated Diagnosis Comments REQUEST FOR 2ND READ MAMMO Routine 07/17/2013 8:45 AM EDT documented in this encounter Results * Request for 2nd read Mammo (07/17/2013 8:45 AM EDT) Anatomical Region Laterality Modality Other 07/17/2013 8:45 AM EDT Narrative 07/17/2013 3:57 PM EDT INTERPRETATION OF OUTSIDE MAMMOGRAMS (PERFORMED ON 07/06/13 AND 07/14/13) FROM [facility] DATED 07/17/13: ?? DIAGNOSTIC IMAGING SUMMARY: ?? [...] OUTSIDE MAMMOGRAMS (PERFORMED ON 07/06/13 AND 07/14/13) [facility] DATED 07/17/13: DIAGNOSTIC IMAGING SUMMARY: [...] on filedocumented in this encounter Care Teams Development Planner Relationship Specialty Start Date End Date Lolly Oliveira MD [address] [place] [address] PCP - General 07/17/13 documented as of this encounter
--- OUTSIDE RECORDS SUMMARY | 2024-03-24 11:54 | XMS_ITS | Encounter Summary ---
Author Organization [facility] [place] [address] Care Team Providers Care Medicare Sales Executive Name Role Phone Lolly Oliveira MD Primary Care Provider [phone] Reason for Visit * Reason Comments Skin Check Encounter Details Date Type Department Care Team (Late st Contact Info) Description 11/23/2014 10:00 AM EDT Office Visit Dermatology at [address] [address] Clay Ramírez MD [address] [facility] [place] [address] Dermatofibroma; Nevus; Solar lentigo Discharge Disposition: Home [...] [facility]ALTH CLINIC Hospital Encounter Non[place] [address] Arrived documented as of this encounter Visit Diagnoses Diagnosis Dermatofibroma Benign neoplasm of skin, site unspecified Nevus Benign neoplasm of skin, site unspecified Solar lentigo Other dyschromia documented in this encounter Care Teams Medicare Sales Executive Relationship Specialty Start Date End Date Lolly Oliveira MD [address] [place] [address] PCP - General 07/17/13 documented as of this encounter
--- OUTSIDE RECORDS SUMMARY | 2024-03-24 11:54 | XMS_ITS | Encounter Summary ---
[place] [address] Care Team Providers Care Health Coach Name Role Phone Lolly Oliveira MD Primary Care Provider [phone] Encounter Details Date Type Department Care Team (Latest Contact Info) Description 07/26/2013 9:45 AM EDT - 07/26/2013 11:59 PM EDT Hospital Encounter [place] [address] Mammographic microcalcification Social History Tobacco Use Types [...] Hospital Encounter Non-Invasive [place] [address] Arrived documented as of this encounter Procedures Procedure Name Priority Date/Time Associated Diagnosis Comments SURGICAL PATHOLOGY REPORT Routine 07/26/2013 12:12 PM EDT MAMMO SPECIMEN IMAGING DURING BIOPSY Routine 07/26/2013 11:58 AM EDT Mammographic microcalcification documented in this encounter Results * Surgical Pathology Report (07/26/2013 12:12 PM EDT) Final Diagnosis ? [facility] ? Provider: ?? ELENO CHRISTIAN ?? Pt. Name: ?? JING MOTT ? Acc #: ?[id number] ?Pt. ? Col Date: ?? 07/26/2013 ? [...] Partially fragmented, fibrofatty needle core biopsies. ? [facility] ? Provider: ?? ELENO CHRISTIAN ?? Pt. Name: ?? JING MOTT ? Acc #: ?[id number] ?Pt. ? Col Date: ?? 07/26/2013 ? [...] Address City/State/[facility] Co ms Phone Number [facility] [place] [address] * Mammo Specimen Imaging During Biopsy (07/26/2013 [...] microcalcification documented in this encounter Care Teams Health Coach Relationship Specialty Start Date End Date Lolly Oliveira MD [address] [place] [address] PCP - General 07/17/13 documented as of this encounter
--- OUTSIDE RECORDS SUMMARY | 2024-03-24 11:54 | XMS_ITS | Encounter Summary ---
Author Organization [facility] [place] [address] Care Team Providers Care Distribution Systems Superintendent Name Role Phone Lolly Oliveira MD Primary Care Provider [phone] Encounter Details Date Type Department Care Team (Late Contact Info) Description 01/14/2022 Telephone Dermatology at [address] [address] Nora Meredith LPN Social History [...] Hospital Encounter Non-[place] [address] Arrived documented as of this encounter Visit Diagnoses Not on filedocumented in this encounter Care Teams Distribution Systems Superintendent Relationship Specialty Start Date End Date Lolly Oliveira MD [address] [place] [address] PCP - General 07/17/13 documented as of this encounter
--- OUTSIDE RECORDS SUMMARY | 2024-03-24 11:54 | XMS_ITS | Encounter Summary ---
Author Organization [facility] [place] [address] Care Team Providers Care Skilled Nursing Case Manager Name Role Phone Lolly Oliveira MD Primary Care Provider [phone] Encounter Details Date Type Department Care Team (Latest Contact Info) Description 07/26/2013 9:44 AM EDT - 07/26/2013 11:59 PM EDT Hospital [place] [phone] CLINIC, Lolly So MD [address] [place], [place] [id number] Mammographic microcalcification Discharge Disposition: Home Social History [...] Hospital Encounter [place] [phone] Arrived documented as of this encounter Procedures [...] are present on specimen digital X-ray. A GOODWIN-Stereo 13 Cylinder marker clip was placed. Cranio-caudal [...] mLs documented in this encounter Care Teams Skilled Nursing Case Manager Relationship Specialty Start Date End Date Lolly Oliveira MD [address] [place] [address] PCP - General 07/17/13 documented as of this encounter
--- OUTSIDE RECORDS SUMMARY | 2024-03-24 11:54 | XMS_ITS | Encounter Summary ---
Author Organization [facility] [place] [address] Care Team Providers Care Manager Of Product Name Role Phone Lolly Oliveira MD Primary Care Provider [phone] Encounter Details Date Type Department Care Team (Latest Contact Info) Description 07/18/2013 [place] [phone] Alia Fraire MD Mammographic microcalcification (Primary Dx) [...] [facility] Hospital Encounter Non[place] [phone] Arrived documented as of this encounter Results [...] are present on specimen digital X-ray. A Electronic Braillerrk Eviva-Stereo 13 Cylinder marker clip was placed. [...] calcifications are present on specimendigital X-ray. A Electronic Braillerrk Eviva-Stereo 13 Cylinder marker clip was placed. [...] not layer and, therefore, are not service center representative of milk of calcium. Again, [...] not layer and, therefore, are not service center representative of milk of calcium. Again, these have an amorphous andpunctate appearance and remain indeterminate. Stereotactic guided biopsy isrecommended. Alia rFaire MD IMG MAMMO ORDERABLES documented in this encounter Visit Diagnoses Diagnosis Mammographic microcalcification- Primary Mammographic microcalcification Mammographic microcalcification Mammographic microcalcification Mammographic microcalcification documented in this encounter Care Teams Manager Of Product Relationship Specialty Start Date End Date Lolly Oliveira MD [address] [place] [address] PCP - General 07/17/13 documented as of this encounter
--- OUTSIDE RECORDS SUMMARY | 2024-03-24 11:54 | XMS_ITS | Encounter Summary ---
Author Organization [facility] [place] [address] Care Team Providers Care Neon Sign Worker Name Role Phone Lolly Oliveira MD Primary Care Provider [phone] Encounter Details Date Type Department Care Team (Latest Contact Info) Description 07/17/2013 8:40 AM EDT - 07/17/2013 11:59 PM EDT Hospital Encounter XRay at [address] [place] [phone] CLINIC, DR [facility] Discharge Disposition: Home Social [...] AM EST Hospital Encounter Non-Invasive [place] [phone] Arrived documented as of this encounter Visit Diagnoses Not on filedocumented in this encounter Care Teams Neon Sign Worker Relationship Specialty Start Date End Date Lolly Oliveira MD [address] [place] [address] PCP - General 07/17/13 documented as of this encounter
--- OUTSIDE RECORDS SUMMARY | 2024-03-24 11:54 | XMS_ITS | Encounter Summary ---
Author Organization [facility] [place] [address] Care Team Providers Care Education Counselor Name Role Phone Unavailable Primary Care Provider Unavailabl e Encounter Details Date Type Department Care Team (Late st Contact Info) Description 07/04/2012 [place] [address] Eleno Christian MD Social History Tobacco Use [...] AM EST Hospital Encounter Non-[place]vasive [place] [address] Arrived documented as of this encounter Procedures [...]
--- OUTSIDE RECORDS SUMMARY | 2024-03-29 11:06 | XMS_ITS | Referral Summary ---
Author Organization [facility] Address [address] [place] [address] Care Team Providers Care Iron Worker Name Role Phone Lolly Oliveira MD Primary Care Provider [phone] Social History Tobacco Use Types Packs/Day Years Used Date Smoking Tobacco: Never Assessed Comments Unknown Sex and Gender Information Value Date Recorded Sex Assigned at Not on file Legal Sex Female 18:31 EST Gender Identity Not on file Sexual Orientation Not on file Plan of Treatment Not on file Insurance [facility] MEDICARE Care Teams Iron Worker Relationship Specialty Start Date End Date Lolly Oliveira MD [address] [place] [address] PCP - General 11/13/08
--- OUTSIDE RECORDS SUMMARY | 2024-03-29 11:06 | XMS_ITS | Encounter Summary ---
Author Organization [facility] Address [address] [place] [address] Care Team Providers Care Commercial Front Load Operator Name Role Phone Lolly Oliveira MD Primary Care Provider [phone] Encounter Details Date Type Department Care Team (Late st Contact Info) Description 05/27/2021 Lab Requisition [facility] - [address] [address] Iman Moran, DO [address] [place], [place] [id number] Encounter for other general examination Social History [...] explore management options, if applicable. 05/30/2021 13:31 [facility] Final Diagnosis A. COLON, POLYP AT 90 CM, BIOPSY/POLYPECTOM Y: - Tubular adenoma. 05/30/2021 13:31 [facility] Attestation By the signature below, the attending physician certifies that they have 1) personally conducted a gross and/or microscopic examination of the described specimen(s), and/or personally interpreted the results of laboratory testing of the described specimen(s), and 2) personally rendered or confirmed the above diagnosis. 05/30/2021 13:31 [facility] at 1331 Clinical History Severe diverticula and polypectomy x1 05/30/2021 13:31 [facility] Gross Description A. Received in formalin labelled with proper patient identification (initials J, K) and colon polyp x1 at 90 cm is a light pineda polypoid tissue measuring 0.2 x 0.2 x 0.2 cm. Submitted intact in A1. MICKEY CARLOS(ASCP) 05/27/2021 19:11 05/30/2021 13:31 [facility] Performing Lab [facility] 05/30/2021 13:31 [facility] Scanned Images 05/30/2021 13:31 [facility] Tissue ENTIRE COLON / Unknown 05/27/2021 11:23 EDT 05/27/2021 16:33 EDT us Iman Moran DO PATHOLOGY ORDERABLES Final Re sult [facility] [address] [place] [address] documented in this encounter Visit Diagnoses Diagnosis Encounter for other general examination documented in this encounter Care Teams Commercial Front Load Operator Relationship Specialty Start Date End Date Lolly Oliveira MD [address] [place] [address] PCP - General 11/13/08 documented as of this encounter
--- OUTSIDE RECORDS SUMMARY | 2024-03-29 11:06 | XMS_ITS | Clinical Summary ---
Author Organization [facility] Address [address] [place] [address] Care Team Providers Care Emergency Department Technician Name Role Phone Lolly Oliveira MD Primary Care Provider [phone] Social History Tobacco Use Types Packs/Day Years [...] 08/10/2023 COVID-19 Vaccine (2023- season) 2023 Insurance [facility] MEDICARE Care Teams Emergency Department Technician Relationship Specialty Start Date End Date Berrian, Lolly, MD [address] [place] [address] PCP - General 11/13/08
--- OUTSIDE RECORDS SUMMARY | 2024-03-29 11:06 | XMS_ITS | Encounter Summary ---
Author Organization [facility] Address [address] [place] [address] Care Team Providers Care Manager Spa Name Role Phone Lolly Oliveira MD Primary Care Provider [phone] Encounter Details Date Type Department Care Team (Late st Contact Info) Description 02/11/2021 Lab Requisition [facility] Medicine - [address] [phone] Outr Resulting Lab, Provider Social History Tobacco [...] MICROBIOLOGY - GENER AL ORDERABLES Final Result [facility] [address] [place] [address] * COVID-19 TESTING (02/11/2021 8:00 EST) COVID-19 rt-PCR Result Negative Negative 02/12/2021 14:17 EST [facility] Comment: This test [...] performed using the med SARS-CoV-2 assay ([employer] on the Med 6800 System Performing Lab Med [address] [facility] 02/12/2021 14:17 EST [facility] Swab 02/11/2021 8:00 EST 02/11/2021 22:22 EST us Provider Outr Resulting Lab MICROBIOLOGY - GENER AL ORDERABLES Final Result [facility] [address] [place] [address] documented in this encounter Visit Diagnoses Not on filedocumented in this encounter Care Teams Manager Spa Relationship Specialty Start Date End Date Lolly Oliveira MD [address] [place] [address] PCP - General 11/13/08 documented as of this encounter
--- OUTSIDE RECORDS SUMMARY | 2024-03-29 11:06 | XMS_ITS | Data Portability ---
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 t available 05/21/2023 Do You Always Fasten Your Seat Belt When You Are In A Car? Yes- Usually [email or web address] Information not available 05/21/2023 How Often During The Past Four Weeks Have You Been Bothered By Any Of The Following Problems? Falling Or Dizzy When Standing Up? Never [email or web address] Information not available 05/21/2023 Sexual Problems? Never [email or web address] Informat ion not available 05/21/2023 Trouble Eating Well? Sometimes [email or web address] Information not available 05/21/2023 Teeth Or Denture Problems? Sometimes [email or web address] Information not available 05/21/2023 Problems Using The Telephone? Never Information not available 05/21/2023 Tiredness Or Fatigue? Sometimes [email or web address] Information not available 05/21/2023 Have You Had 2 Or More Falls Or Sustained An Injury With A Fall In The Last Year? No [email or web address] Information no t available 05/21/2023 Do You Have Difficulty With Walking Or Balance? No [email or web address] Information not available 05/21/2023 Do You Currently Use A Hearing Device? No [email or web address] Information not available 05/21/2023 Do You Currently Have Any Trouble With Your Vision? Yes [email or web address] Information no t available 05/21/2023 Do You Exercise For About 20 Minutes Three Or More Days A Week? Yes- Most Of The Time [email or web address] Information not available 05/21/2023 Are There Any Safety Concerns In Your Home (see Attached [facility] Pamphlet)? No [email or web address] Information not available 05/21/2023 How Often Do You Have Trouble Taking Medicines The Way You Have Been Told To Take Them? I Always Take Them As Prescribed [email or web address] Information not available 05/21/2023 How Confident Are You That You Can Control And Manage Most Of Your Health Problems? Very Confident [email or web address] Information not available 05/21/2023 Do You Currently [...] Other Forms Of Tobacco Or Nicotine? No [email or web address] Information not available 05/21/2023 Sex: Female Functional [...] preservative free, adsorbed 9 completed Not Available [facility] 01/15/2023 04:53:39 Tdap 8 completed Not Available [facility] 01/15/2023 04:53:39 zoster live 3 completed Not Available [facility] 01/15/2023 04:53:40 Pneumococcal conjugate PCV 13 6 completed Not Available [facility] 01/15/2023 04:53:40 Influenza, high-dose, trivalent, PF 8 completed Not Available [facility] 01/15/2023 04:53:41 Td(adult) unspecified formulation 3 completed Not Available [facility] 01/15/2023 04:53:41 Influenza, split virus, trivalent, preservative 6 completed Not Available [facility] 01/15/2023 04:53:41 Influenza, split virus, trivalent, preservative 5 completed Not Available [facility] 01/15/2023 04:53:41 Influenza, split virus, quadrivalent, PF 9 completed Not Available [facility] 01/15/2023 04:53:41 zoster recombinant 9 completed Not Available [facility] 01/15/2023 04:53:42 zoster recombinant 8 completed Not Available [facility] 01/15/2023 04:53:42 Influenza, high-dose, quadrivalent, PF 1 completed Not Available [facility] 01/15/2023 04:53:43 Influenza, high-dose, quadrivalent, PF 0 completed Not Available [facility] 01/15/2023 04:53:43 Influenza, high-dose, quadrivalent, PF 2 completed Not Available [facility] 01/15/2023 04:53:43 COVID-19, mRNA, LNP-S, PF, 100 mcg/0.5mL dose or 50 mcg/0.25mL dose 2 completed Not Available [facility] 01/15/2023 04:53:43 COVID-19 vaccine, vector-nr, rS-Ad26, PF, 0.5 mL 1 completed Not Available [facility] 01/15/2023 04:53:44 SARS-COV-2 (COVID-19) vaccine, UNSPECIFIED 1 completed Not Available [facility] 01/15/2023 04:53:44 SARS-COV-2 (COVID-19) vaccine, UNSPECIFIED 1 completed Not Available [facility] 01/15/2023 04:53:44 pneumococcal polysaccharide PPV23 5 completed Not Available [facility] 01/15/2023 04:53:45 Hep B, unspecified formulation 4 completed Not Available [facility] 01/15/2023 04:53:45 Hep B, unspecified formulation 3 completed Not Available [facility] 01/15/2023 04:53:46 Hep B, unspecified formulation 3 completed Not Available [facility] 01/15/2023 04:53:46 influenza, unspecified formulation 0 completed Not Available [facility] 01/15/2023 04:53:47 influenza, unspecified formulation 3 completed Not Available [facility] 01/15/2023 04:53:47 influenza, unspecified formulation 9 completed Not Available [facility] 01/15/2023 04:53:47 influenza, unspecified formulation 1 completed Not Available [facility] 01/15/2023 04:53:47 influenza, unspecified formulation 7 completed Not Available [facility] 01/15/2023 04:53:48 influenza, unspecified formulation 4 completed Not Available [facility] 01/15/2023 04:53:48 influenza, unspecified formulation 8 completed Not Available [facility] 01/15/2023 04:53:48 influenza, unspecified formulation 2 completed Not Available [facility] 01/15/2023 04:53:48 Influenza, high-dose, quadrivalent, PF 3 completed Not Available [facility] 03/19/2023 05:33:03 COVID-19, mRNA, LNP-S, PF, herminio-sucrose, 30 mcg/0.3 mL 3 completed Not Available [facility] 03/19/2023 05:33:03 COVID-19, mRNA, LNP-S, bivalent, PF, 50 mcg/0.5 mL or 25mcg/0.25 mL dose 4 completed DENYS Bauer, [facility] 12/20/2023 15:23:33 Respiratory syncytial virus (RSV) vaccine, unspecified 4 completed DENYS Bauer, [facility] 12/20/2023 15:24:29 influenza, unspecified formulation 4 completed DENYS Bauer, [facility] 12/20/2023 15:25:14 Past Encounters Encounter ID Performer Location Encounter Start Date Encounter Closed Date Diagnosis/Indication Diagnosis SNOMED-CT Code Diagnosis ICD10 Code Diagnosis Note [id number] LOLLY CORTEZ MD [facility] [address] [place] [address] 05/21/2023 10:03:54 05/21/2023 11:37:49 Onychomycosis 542521786 B35.1 There is bothering her more, more difficult to trim her toenails. She also has a callus that she would like looked with podiatry. Asthma 957398676 J45.90 9 Rare use of albuterol, she will continue the same Cardiomyopathy 53379853 I10 Clinically remaining stable, has had significan [...] well-contr olled. Disorder of hip joint 42 5996045 M12.859 Doing well status post now bilateral total hip replacemen ts. 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 She is working on exercises in addition to walking. Mammo will be due in the fall. Up-to-date with colonoscop y. [id number] [address],[facility] [address] [place] [address] 09/01/2023 10:23:16 09/01/2023 13:28:10 Vertigo 446978221 R42 Patient has been experienci ng vertigo [...] on. Impacted c erumen of bilateral ears [id number] 885725 H61.23 Ear lavage performed with complete resolution and no signs of infection. [id number] LOLLY CORTEZ MD [address] [address] 11/26/2023 07:26:08 11/26/2023 08:10:59 Screening mammography 39724589 Z12.31 Adjustment disorder 1722 6007 F43.20 , Still grieving the loss of her about a year and a half ago. She still finds it hard being in the house alone. Her kids and grandkids have been with a good visiting regularly which she appreciate s. Asthma 316463867 J45.90 9 Rare use of albuterol, she will continue the same Essential hypertension 19708849 I10 Under reasonably good control, see cardiomyop athy below Guttate psoriasis 112148 00 L40.4 , Following dermatolog y. Will be starting photothera py in addition to the clobetasol once the colder weather arrives. Has been just trying to get some sun exposure on her skin over the summer. Currently psoriasis is not too bad Cardiomyopathy 03626495 I10 Clinically remaining stable, has had significan [...] okay continuing to take it. Up-to-date with [facility]. Creatinine remains a little elevated as is BUN, although these have improved. Encouraged increased fluid intake Hyperlipidemia 82949249 E78.5 on rosuvastat in, lipids well-contr olled, normal LFTs Prediabetes 676848176 R7 3.03 And obesity. A1c 5.9, This [...] continue doing that. She has met with [facility]. Health Concerns Section Related Observation LastModified by Organization Detai ls LastModified Time None Recorded Concern Status LastModified by Organization Details LastModified Time None Recorded Advance Directives Directive None Recorded Payers Encounter Date Sequence Insurance Name Policy Number Policy Lema Covered Member ID Lema Member ID Guarantor Name 05/21/2023 1 [place] - [place]PO) [id number] Luna Barber LunaVan Buren [id number] Luna Lunaslin 09/01/2023 1 [place] - [place]) [id number] Luna Lunaslin [id number] Luna Lunaslin 11/26/2023 1 [place]) [id number] Luna Lunaslin [id number] Luna Mott Notes Date Note Type Note Provider Name and Address Organization Details Recorded Time 05/21/2023 text/html Thais here today for an annual wellness exam LOLLY CORTEZ MD [address], [place], [address], [facility]. 05/24/2023 18:32:35 09/01/2023 text/html [...] it. JESSICA INGRAM PA-C [address], [place], [address], [facility]. 09/01/2023 13:55:07 11/26/2023 text/html Thais here today for follow-up of cardiomyopathy, obesity LOLLY CORTEZ MD [address], [place], [address], [facility]. 11/28/2023 09:26:44 OBGyn Episode No OBEpisode recorded.
--- OUTSIDE RECORDS SUMMARY | 2024-03-29 11:07 | XMS_ITS | Encounter Summary ---
Author Organization [facility] [place] [address] Care Team Providers Care Nursery Rn Name Role Phone Lolly Oliveira MD Primary Care Provider [phone] Encounter Details Date Type Department Care Team (Late st Contact Info) Description 03/15/2023 Telephone Cardiology at [address] [phone] Saranya Ma Social History Tobacco Use Types [...] [facility] prior to her appt withflm there on 05/12/23. Message sent to Dr. Mcmahon asking him to put order in if he would like her to have this done. Saranya Ma Sr. Clinical Procedure [place]/[employer] Operator documented in this encounter Plan of Treatment Upcoming Encounters Date Type Department Care Team (Late st Contact Info) Description 04/15/2024 10:00 AM EST Hospital Encounter Non[place] [address] Arrived documented as of this encounter Visit Diagnoses Not on filedocumented in this encounter Care Teams Nursery Rn Relationship Specialty Start Date End Date Lolly Oliveira MD [address] [place] [address] PCP - General 07/17/13 documented as of this encounter
--- OUTSIDE RECORDS SUMMARY | 2024-03-29 11:07 | XMS_ITS | Encounter Summary ---
Author Organization [facility] Address [address] [place] [address] Care Team Providers Care Hospital Corpsman Name Role Phone Lolly Oliveira MD Primary Care Provider [phone] Encounter Details Date Type Department Care Team (Late st Contact Info) Description 04/12/2007 Results Only [facility] conversion [address] [place] [address] Lolly Oliveira MD [address] [place], [place] [id number] Social History Tobacco Use Types Packs/Day Years [...] ? JING ALVARENGA ? Accession #: ? [id number] : ? 1950 (Age: 56) ??F ?Collect Date: ? 04/12/2007 Location: ? [facility] ? Receive Date: ? 04/13/2007 Provider: ?LOLLY OLIVEIRA MD Copy to: ? Specimen/Source: ?ThinPrep Pap Test, Cervix/Endocervix, processed on [employer] ThinPrep Imaging System, with manual evaluation Last [...] ORDERABLES Final Resu lt [facility] [address] [place] [address] documented in this encounter Visit Diagnoses Not on filedocumented in this encounter Care Teams Hospital Corpsman Relationship Specialty Start Date End Date Lolly Oliveira MD [address] [place] [address] PCP - General 11/13/08 documented as of this encounter
--- OUTSIDE RECORDS SUMMARY | 2024-03-29 11:07 | XMS_ITS | Clinical Summary ---
Author Organization [facility] [place] [address] Care Team Providers Care Physician Practice Manager Name Role Phone Lolly Oliveira MD Primary Care Provider [phone] Allergies Active Allergy Reactions Criticality Noted Date [...] spacer Active fluticasone propionate (Flonase) 50 mcg/actuation [place], Suspension 1 spray by Each Nare route [...] PM EST Hospital Encounter [place] [address] Discharge Disposition: Home from Last [...] AM EST Hospital Encounter [place] [address] Arrived Health Maintenance Due Date Last Done [...] series) 11/07/2023 Medical Devices Implanted Type Area Physical Plant Employee Device Identifier Shelf Expiration Date Model / Serial / Lot Bsx: [id number]: [id number]/18/2 023 Implanted: by Lalit Mcmahon MD (Quantity not on file) Defibrillator Chest Wall [employer] [id number] / [id number] / Bsx: [id number]: [id number]/18/2 023 Implanted: by Lalit Mcmahon MD (Quantity not on file) Lead Heart [employer] 4674 / [id number] / Bsx: [id number]: [id number] Implanted: by Lalit Mcmahon MD (Quantity not on file) Lead Heart [employer] 7841 / [id number] / Bsx: 0672: [id number]/18/2 023 Implanted: by Lalit Mcmahon MD (Quantity not on file) Lead Heart [employer] 0672 / [id number] / Procedures Procedure Name Priority Date/Time Associated [...] Status decision made by: Patient Care Teams Physician Practice Manager Relationship Specialty Start Date End Date Lolly Oliveira MD [address] [place] [id number] PCP - General 07/17/13
--- OUTSIDE RECORDS SUMMARY | 2024-03-29 11:07 | XMS_ITS | Encounter Summary ---
Author Organization [facility] Address [address] [place] [address] Care Team Providers Care Quality Assurance Monitor Name Role Phone Unavailable Primary Care Provider Unavailabl e Encounter Details Date Type Department Care Team (Late st Contact Info) Description 11/07/2008 Orders Only [facility] Laboratory Services - [facility] ([facility] [address] [place] [address] Kenneth Parker MD [address] [place] [address] Social History Tobacco Use Types Packs/Day Years [...] ? JING ALVARENGA ? Accession #: ? [id number] ? : ? 1950 (Age: 58) ??F [...] Resu lt [facility] [address] [place] [address] documented in this encounter Visit Diagnoses Not on filedocumented in this encounter
--- OUTSIDE RECORDS SUMMARY | 2024-03-29 11:07 | XMS_ITS | Encounter Summary ---
Author Organization [facility] [place] [address] Care Team Providers Care Intermodal Dispatcher Name Role Phone Lolly Oliveira MD Primary Care Provider Encounter Details Date Type Department Care Team (Latest Contact Info) Description 01/21/2023 10:00 AM EST - 01/21/2023 11:59 PM EST Hospital Encounter [place] [address] Discharge Disposition: Home Social History Tobacco Use [...] with spacer fluticasone propionate (Flonase) 50 mcg/actuation [place], Suspension 1 spray by Each Nare route [...] AM EST Hospital Encounter Non-[place] [address] Arrived documented as of this [...] on filedocumented in this encounter Care Teams Intermodal Dispatcher Relationship Specialty Start Date End Date Lolly Oliveira MD [address] [place] [address] PCP - General 07/17/13 documented as of this encounter
--- OUTSIDE RECORDS SUMMARY | 2024-03-29 11:07 | XMS_ITS | Encounter Summary ---
Author Organization [facility] [place] [address] Care Team Providers Care Meter Repairer Helper Name Role Phone Lolly Oliveira MD Primary Care Provider [phone] Reason for Visit * Diagnostic Test (Routine) - Closed Specialty Diagnoses / Procedures Referred By Contac t Referred To Contact Radiology Diagnoses Left bundle branch block Nonischemic cardiomyopathy Procedures MRI Cardiac Morphology Function With Flow Velocity Quantification wwo Contrast MRI Cardiac Morphology Function wwo Contrast Lalit Mcmahon MD [facility] [place] [address] [facility] [place] [address] Referral ID Status Reason Start Date Expiration Date V isits Requested Visits Authorized [id number] Closed Specialty Service Requested 05/06/2022 11/07/2023 2 1 Encounter Details Date Type Department Care Team (Latest Contact Info) Description 07/14/2022 9:09 AM EDT - 07/14/2022 11:59 PM EDT Hospital [place] [address] Lalit Mcmahon MD [facility] [place] [address] Discharge Disposition: Home Social History Tobacco Use [...] with spacer fluticasone propionate (Flonase) 50 mcg/actuation [place], Suspension 1 spray by Each Nare route [...] AM EST Hospital Encounter Non[place] [address] Arrived documented as of this [...] mLs documented in this encounter Care Teams Meter Repairer Helper Relationship Specialty Start Date End Date Lolly Oliveira MD [address] [place] [address] PCP - General 07/17/13 documented as of this encounter
--- OUTSIDE RECORDS SUMMARY | 2024-03-29 11:07 | XMS_ITS | Encounter Summary ---
Author Organization [facility] Address [address] [place] [address] Care Team Providers Care Sales Teacher Name Role Phone Lolly Oliveira MD Primary Care Provider [phone] Encounter Details Date Type Department Care Team (Late st Contact Info) Description 04/17/2005 Results Only [facility] conversion [address] [place] [address] Lolly Oliveira MD [address] [place], [place] [phone] Social History Tobacco Use Types Packs/Day Years [...] ? JING ALVARENGA ? Accession #: ? [id number] : ? 1950 (Age: 54) ??F ?Collect Date: ? 04/17/2005 Location: ? [facility] ? Receive Date: ? 04/21/2005 Provider: ?LOLLY OLIVEIRA MD Copy to: ? Specimen/Source: ?ThinPrep Pap Test, Cervix/Endocervix, processed on [employer] ThinPrep Imaging System, with manual evaluation Last [...] Final Resu lt [facility] [address] [place] [address] documented in this encounter Visit Diagnoses Not on filedocumented in this encounter Care Teams Sales Teacher Relationship Specialty Start Date End Date Lolly Oliveira MD [address] [place] [address] PCP - General 11/13/08 documented as of this encounter
--- OUTSIDE RECORDS SUMMARY | 2024-03-29 11:07 | XMS_ITS | Encounter Summary ---
Author Organization [facility] Address [address] [place] [address] Care Team Providers Care Welder Fitter Apprentice Name Role Phone Lolly Oliveira MD Primary Care Provider [phone] Encounter Details Date Type Department Care Team (Late st Contact Info) Description 04/01/2005 Results Only [facility] conversion [address] [place] [address] Blair Dukes MD [address] [place] [phone] Social History Tobacco Use Types Packs/Day Years [...] ? JING ALVARENGA ? Accession #: ? [id number] ? : ? 1950 (Age: 54) ??F [...] ? Received in [place]' s fixative labelled [place] and #1 ??terminal ileum bx is a single 0.3 x 0.2 x 0.2 cm tissue, submitted intact as (A). Received in [place]' s fixative labelled [place] and #2 ??transverse colon bx is a single 0.2 x 0.2 x 0.2 cm tissue, submitted intact as (B). ??(Dr. Lechuga)/[facility] End of Report [facility] 04/01/2005 04/02/2005 15: 24 EST us Blair Dukes MD PATHOLOGY ORDERABLES Final Resul t [facility] [address] [place] [address] documented in this encounter Visit Diagnoses Not on filedocumented in this encounter Care Teams Welder Fitter Apprentice Relationship Specialty Start Date End Date Lolly Oliveira MD [address] [place] [address] PCP - General 11/13/08 documented as of this encounter
--- OUTSIDE RECORDS SUMMARY | 2024-03-29 11:07 | XMS_ITS | Encounter Summary ---
Author Organization [facility] [place] [address] Care Team Providers Care Strike Operations Officer Name Role Phone Lolly Oliveira MD Primary Care Provider [phone] Reason for Visit * Reason Comments Follow-up 8 weeks UVB treatmen t twice weekly Encounter Details Date Type Department Care Team (Late st Contact Info) Description 07/19/2023 11:00 AM EDT Office Visit Dermatology at [address] [phone] Clay Ramírez MD [address], [facility] [place], [place] [phone] Psoriasis Social History Tobacco Use Types Packs/Day [...] [facility] Hospital Encounter [place] [address] Arrived documented as of this encounter Visit Diagnoses Diagnosis Psoriasis Other psoriasis documented in this encounter Care Teams Strike Operations Officer Relationship Specialty Start Date End Date Lolly Oliveira MD [address] [place] [address] PCP - General 07/17/13 documented as of this encounter
--- OUTSIDE RECORDS SUMMARY | 2024-03-29 11:07 | XMS_ITS | Encounter Summary ---
Author Organization [facility] Address [address] [place] [address] Care Team Providers Care Awning Erector Name Role Phone Lolly Oliveira MD Primary Care Provider [phone] Encounter Details Date Type Department Care Team (Late st Contact Info) Description 03/21/2019 Lab Requisition [facility] Pathology & Laboratory Medicine - [address] [address] Unknown, Provider, Social History Tobacco Use Types [...] - 911 pg/mL 03/22/2019 11:52 EST [facility] Blood VENOUS BLOOD / Unknown 03/16/2019 9:25 EST 03/21/2019 21:35 EST us Provider Unknown CHEMISTRY & BLOOD GAS ORDERA BLES Final Result [facility] [address] [place] [address] documented in this encounter Visit Diagnoses Not on filedocumented in this encounter Care Teams Awning Erector Relationship Specialty Start Date End Date Lolly Oliveira MD [address] [place] [address] PCP - General 11/13/08 documented as of this encounter
--- OUTSIDE RECORDS SUMMARY | 2024-03-29 11:07 | XMS_ITS | Encounter Summary ---
Author Organization [facility] [place] [address] Care Team Providers Care Onshore Diver Name Role Phone Lolly Oliveira MD Primary Care Provider [phone] Encounter Details Date Type Department Care Team (Late st Contact Info) Description 03/17/2023 Telephone Cardiology at [address] [phone] Saranya Ma Social History Tobacco Use Types [...] 9:43 AM EST Echo order faxed to [facility] at [phone]. No Prior auth needed. Ref #:[id number]. Saranya Ma Sr. Clinical Procedure [place]/Instrumentation Specialist documented in this encounter Plan of Treatment Upcoming Encounters Date Type Department Care Team (Late st Contact Info) Description 04/15/2024 10:00 AM [facility] Hospital Encounter [place] [address] Arrived documented as of this encounter Visit Diagnoses Not on filedocumented in this encounter Care Teams Onshore Diver Relationship Specialty Start Date End Date Lolly Oliveira MD [address] [place] [address] PCP - General 07/17/13 documented as of this encounter
--- OUTSIDE RECORDS SUMMARY | 2024-03-29 11:07 | XMS_ITS | Encounter Summary ---
Author Organization [facility] [place] [address] Care Team Providers Care Account Assistant Name Role Phone Lolly Oliveira MD Primary Care Provider [phone] Encounter Details Date Type Department Care Team (Late st Contact Info) Description 11/16/2022 Telephone Cardiology at [address] [phone] Luna Rousseau, RN Social History Tobacco Use [...] BP today was 118/57 at [facility] at [facility]. Pt is going twice a week [...] [facility] Encounter [place] [phone] Arrived documented as of this encounter Visit Diagnoses Not on filedocumented in this encounter Care Teams Account Assistant Relationship Specialty Start Date End Date Lolly Oliveira MD [address] [place] [address] PCP - General 07/17/13 documented as of this encounter
--- OUTSIDE RECORDS SUMMARY | 2024-03-29 11:07 | XMS_ITS | Encounter Summary ---
Author Organization [facility] Address [address] [place] [address] Care Team Providers Care Clinic Director Name Role Phone Lolly Oliveira MD Primary Care Provider [phone] Encounter Details Date Type Department Care Team (Late st Contact Info) Description 03/06/2003 Results Only [facility] conversion [address] [place] [address] Lolly Oliveira MD [address] [place], [place] [id number] Social History Tobacco Use Types Packs/Day Years [...] ORDERABLES Final Resu lt [facility] [address] [place] [address] documented in this encounter Visit Diagnoses Not on filedocumented in this encounter Care Teams Clinic Director Relationship Specialty Start Date End Date Lolly Oliveira MD [address] [place] [address] PCP - General 11/13/08 documented as of this encounter
--- OUTSIDE RECORDS SUMMARY | 2024-03-29 11:07 | XMS_ITS | Encounter Summary ---
Author Organization [facility] Address [facility] [address] Care Team Providers Care Development Writer Name Role Phone Lolly Oliveira MD Primary Care Provider [phone] Reason for Visit * Auth/Cert (Routine) Specialty Diagnoses / Procedures Referred By Contac t Referred To Contact Diagnoses Left bundle-branch block, unspecified Other cardiomyopathies Left bundle branch block [I44.7]Nonischemic cardiomyopathy [I42.8] Procedures PRG CATH PLMT LEFT HEART CATH & ARTS W/INJ & ANGIO IMG S&I ELECTROPHYSIOLOGY PROCEDURE Lalit Mcmahon MD [facility] [place] [address] [facility] Referral ID Status Reason Start Date Expiration Date Visits Re quested Visits Authorized [id number] 1 1 Encounter Details Date Type Department Care Team (Late st Contact Info) Description 07/23/2022 1:08 PM EDT Anesthesia Event [place] [address] Monae Gonzalez MD [facility] [place] [address] Maria Elena Snyder CRNA [facility] [place] [address] Anesthesia Record Procedure Summary Procedure Name Responsible [...] 1307; median cubital vein (antecubital fossa), right; dzdr-obd-bivqei catheter system; Anatomical Landmarks; 20 gauge; 07/24/22; [...] 1343; metacarpal vein (top of hand), left; eola-wwn-cfpwen catheter system; Anatomical Landmarks; US Not Used; [...] Date: 07/23/22 Room / Location: [facility] A-LAB ROOM 3 / [facility] EP LABS Anesthesia Start: 1308 Anesthesia Stop: 1633 Procedure: ELECTROPHYSIOLOGY PROCEDURE (Left) Diagnosis: Left bundle branch block Nonischemic cardiomyopathy (Left bundle branch block [I44.7]Nonischemic cardiomyopathy [I42.8]) Providers: Lailt Mcmahon MD Responsible Provider: Monae Gonzalez MD Anesthesia Type: general ASA Status: 4 All Anesthesia Providers: Anesthesiologist: Monae Gonzalez MD; Dominique Sen MD HOSPICE PLAN ADMINISTRATOR: Maria Elena Snyder CRNA Vitals Value Taken Time BP 131/46 07/23/22 1700 Temp 36.7 ??C (98.1 ??F) 07/23/22 1627 Pulse 67 07/23/22 1703 Resp 14 07/23/22 1703 SpO2 98 % 07/23/22 1703 Pain Level Vitals shown include unvalidated device data. Patient Location: PACU/[facility] Level of Consciousness: Conscious but Sleepy Pain [...] and Nonischemic CM (EF 15-20%)who presents for BUTTON SAWYER-D. No prior anesthetic records. Pt states that [...] daughter/son and patient who. Plan discussed with HOSPICE PLAN ADMINISTRATOR. Anesthesia Screening documented in this encounter Plan of Treatment Upcoming Encounters Date Type Department Care Team (Late st Contact Info) Description 04/15/2024 10:00 AM [facility] Hospital Encounter Non-Invasive Cardiology Lab [place], [place] [...] mg documented in this encounter Care Teams Development Writer Relationship Specialty Start Date End Date Lolly Oliveira MD [address] [place] [address] PCP - General 07/17/13 documented as of this encounter
--- OUTSIDE RECORDS SUMMARY | 2024-03-29 11:07 | XMS_ITS | Encounter Summary ---
Author Organization Count Includes [facility] Address [facility] [place] [address] Care Team Providers Care Cartridge Assembler Name Role Phone Lolly Oliveira MD Primary Care Provider [phone] Encounter Details Date Type Department Care Team (Late st Contact Info) Description 01/29/2023 Notes Only Cardiology at [address] [address] Merle Lin PA [facility] [place] [address] Social History Tobacco Use Types Packs/Day Years [...] pdf document Date of transmission: 01/29/2023 Device machine adjuster helper: BSI Device type: [employer] MECHANICAL-D Presenting rhythm: /RVP/LVP AP 21% Right GASKET WINDER 100% Left GASKET WINDER: 100% Battery: 10.5 years HeartLogic Index rising in setting of increasing S3 intensity, increasing respiratory rate, increasing night heart rate, and increasing mean heart rate. MICKEY Villa 01/29/2023 9:06 AM documented in this encounter Plan of Treatment Upcoming Encounters Date Type Department Care Team (Late st Contact Info) Description 04/15/2024 10:00 AM EST Hospital Encounter Non-[place]vasive [place] [address] Arrived documented as of this encounter Visit Diagnoses Not on filedocumented in this encounter Care Teams Cartridge Assembler Relationship Specialty Start Date End Date Lolly Oliveira MD [address] [place] [address] PCP - General 07/17/13 documented as of this encounter
--- OUTSIDE RECORDS SUMMARY | 2024-03-29 11:07 | XMS_ITS | Encounter Summary ---
Author Organization [facility] Address [address] [place] [address] Care Team Providers Care Broom Handle Dipper Name Role Phone Lolly Oliveira MD Primary Care Provider [phone] Encounter Details Date Type Department Care Team (Late st Contact Info) Description 04/25/2009 Orders Only [facility] Laboratory Services - [facility] [address], [place] [id number] Lolly Oliveira MD [address] [place], [place] [id number] Social History Tobacco Use Types Packs/Day Years [...] ? JING ALVARENGA ? Accession #: ? [id number] ? : ? 1950 (Age: 58) ??F [...] ORDERABLES Final Resu lt Performing Organization Address [facility]/State/ZIP Co de Phone Number [facility] [address] [place] [address] documented in this encounter Visit Diagnoses Not on filedocumented in this encounter Care Teams Broom Handle Dipper Relationship Specialty Start Date End Date Lolly Oliveira MD [address] [place] [address] PCP - General 11/13/08 documented as of this encounter
--- OUTSIDE RECORDS SUMMARY | 2024-03-29 11:07 | XMS_ITS | Encounter Summary ---
Author Organization [facility] [place] [address] Care Team Providers Care Reach Lift Truck Driver Name Role Phone Lolly Oliveira MD Primary Care Provider [phone] Reason for Visit * Reason Onset Date Comments Other 07/24/2022 Implanted Cardia c Device Teaching/Education Encounter Details Date Type Department Care Team (Late st Contact Info) Description 07/24/2022 Notes Only Cardiology at [address] [phone] Letha Arroyo Other (Implanted Cardiac Device Teaching/Education) Social History Tobacco Use Types Packs/Day Years Used Date Smoking Tobacco: Never Alcohol Use Standard Drinks/Week Comments Not Currently 0 (1 standard drink = 0.6 oz pur e alcohol) [facility] Inpatient Questions Answer Date Recorded [...] to call the Cardiac Device Clinic at [phone] with any questions. Plan: Post op check: [...] CARE SERVICES Hospital Encounter [place] [address] Arrived documented as of this encounter Visit Diagnoses Not on filedocumented in this encounter Care Teams Reach Lift Truck Driver Relationship Specialty Start Date End Date Lolly Oliveira MD [address] [place] [address] PCP - General 07/17/13 documented as of this encounter
--- OUTSIDE RECORDS SUMMARY | 2024-03-29 11:07 | XMS_ITS | Encounter Summary ---
Author Organization [facility] Address [facility] [place] [address] Care Team Providers Care Religious Activities Director Name Role Phone Lolly Oliveira MD Primary Care Provider [phone] Encounter Details Date Type Department Care Team (Late st Contact Info) Description 03/15/2023 Orders Only Cardiology at [address] [phone] Lalit Mcmahon MD [facility] [place] [address] Nonischemic cardiomyopathy; Biventricular ICD (implantable cardioverter-defibrill ator) [...] AM EST Hospital Encounter Non-[place] [address] Arrived documented as of this encounter Visit Diagnoses Diagnosis Nonischemic cardiomyopathy Other primary cardiomyopathies Biventricular ICD (implantable cardioverter-defibrillator) in place documented in this encounter Care Teams Religious Activities Director Relationship Specialty Start Date End Date Lolly Oliveira MD [address] [place] [address] PCP - General 07/17/13 documented as of this encounter
--- OUTSIDE RECORDS SUMMARY | 2024-03-29 11:07 | XMS_ITS | Encounter Summary ---
Author Organization [facility] [place] [address] Care Team Providers Care Linen Room Attendant Name Role Phone Lolly Oliveira MD Primary Care Provider [phone] Encounter Details Date Type Department Care Team (Latest Contact Info) Description 01/16/2024 10:00 AM EST - 01/16/2024 11:59 PM EST Hospital Encounter [place] [phone] Discharge Disposition: Home Social History Tobacco Use [...] with spacer fluticasone propionate (Flonase) 50 mcg/actuation [place], Suspension 1 spray by Each Nare route daily as needed. documented as of this encounter Plan of Treatment Upcoming Encounters Date Type Department Care Team (Late st Contact Info) Description 04/15/2024 10:00 AM EST Hospital Encounter Non[place] [phone] Arrived documented as of this encounter Procedures [...] on filedocumented in this encounter Care Teams Linen Room Attendant Relationship Specialty Start Date End Date Lolly Oliveira MD [address] [place] [address] PCP - General 07/17/13 documented as of this encounter
--- OUTSIDE RECORDS SUMMARY | 2024-03-29 11:07 | XMS_ITS | Encounter Summary ---
Author Organization [facility] Address [facility] [place] [address] Care Team Providers Care Line Service Person Name Role Phone Lolly Oliveira MD Primary Care Provider [phone] Reason for Visit * Auth/Cert (Routine) Specialty Diagnoses / Procedures Referred By Contac t Referred To Contact Diagnoses Left bundle-branch block, unspecified Other cardiomyopathies Left bundle branch block [I44.7]Nonischemic cardiomyopathy [I42.8] Procedures PRG CATH PLMT LEFT HEART CATH & ARTS W/INJ & ANGIO IMG S&I ELECTROPHYSIOLOGY PROCEDURE Lalit Mcmahon MD [facility] [place] [address] [address] [address] R[place] Referral ID Status Reason Start Date Expiration Date Visits Re quested Visits Authorized [id number] 1 1 Encounter Details Date Type Department Care Team (Latest Contact Info) Description 07/23/2022 11:39 AM EDT - 07/24/2022 10:23 AM EDT Hospital [place] [phone] Lalit Mcmahon MD [facility] [place] [address] [address] Left bundle branch block; Nonischemic cardiomyopathy; Cardiac resynchronization therapy defibrillator (MANAGER BUSINESS INFORMATION-D) in place Discharge Disposition: Home Social History [...] MD Follow-up Recommendations for Providers: - s/p MANAGER BUSINESS INFORMATION-D implant - post implant QRS 130 ms [...] Procedures: 07/23/22: [facility] MANAGER BUSINESS INFORMATION-D implant History of Presentation: 71 y.o. female with a history of HFrEF, LBBB, QRS >150, NYHA II who is POD#1 of MANAGER BUSINESS INFORMATION-D implant ([employer]). Hospital Course: Elective admission for MANAGER BUSINESS INFORMATION-D implant Admitted post-implant for pain management, telemetry [...] (heart failure with reduced ejection fraction) [I50.20] MANAGER BUSINESS INFORMATION-D implant Admission Condition: good Indication for Admission: [...] g Refills: 3 fluticasone propionate 50 mcg/actuation Council, Suspension Commonly known as: Flonase 1 spray [...] F. The office scheduling phone number is [phone]. ARM MOVEMENT RESTRICTIONS POST-IMPLANT - Do not [...] please call the Cardiac ElectrophysiologyTriage Nurse at [phone], option 3. General Instructions None Discharge References/Attachments [...] F. The office scheduling phone number is [phone]. ARM MOVEMENT RESTRICTIONS POST-IMPLANT - Do not [...] please call the Cardiac ElectrophysiologyTriage Nurse at [phone], option 3. documented in this encounter Medications [...] with spacer fluticasone propionate (Flonase) 50 mcg/actuation [place], Suspension 1 spray by Each Nare route [...] Cardiac Electrophysiology Post-Implant Device Interrogation Luna Mott [id number] 07/24/2022 History: Luna Mott is a 71 y.o. female with a history of HFrEF, LBBB, QRS >150, NYHA II who is POD#1 of MANAGER BUSINESS INFORMATION-D implant ([employer]). Overall feels well this morning. Ready [...] WOB Neuro- A&Ox3 Device Interrogation: Data ?? University Teacher Model # Serial # Generator [employer] [id number] Atrial Lead [employer] [id number] [id number] RV Lead [employer] 0672 [id number] LV Lead [employer] [id number] ?? Diagnostics Pacing Mode: DDD 60-130 Underlying Rhythm: [place] Atrial Episodes: None Ventricular Episodes: None FINAL PROGRAMMING: Pacing: Mode Lower rate (ppm) Upper rate (ppm) ?? DDD 60 130 VF: Rate (bpm) #Antitachycardia pacing First shock energy (J) ?? 200 Quick convert 41 VT: 170 Monitor only Monitor only ? Battery and Leads Impedances (ohms) Sensing (mV) Thresholds HV RA RV LV RA RV LV RA RV LV 73 191 165 2085 (LVa) 7.7 13.1 >25 0.4V @ 0.4 ms 0.4V @ 0.4 ms 0.5 V @ 1.0 ms POD#1 CXR: All leads in nominal positioning Impression: 71 y.o. female who is s/p MANAGER BUSINESS INFORMATION-D implant for LBBB, NYHA II, HFrEF. - [...] [facility]) Fadi Nunez MD 07/24/2022 Pager: [phone] I met with the patient today and [...] agreement. ? Dr. Lalit Mcmahon, electrophysiology attending ([id number]) * Zaria Wright RN - 07/23/2022 8:28 [...] HF, QRS > 150 ms presents for MANAGER BUSINESS INFORMATION-D placement. ROS: Denies recent fevers or chills [...] 0.9) flush 5 mL 5 mL Intravenous [id number] ramos MD ??? sodium chloride 0.9 % (flush) (BD PosiFlush Normal Saline 0.9) flush 5-20 mL 5-20 mL Intravenous Q1 Min PRN Lalit Mcmahon MD ??? lidocaine (Xylocaine) 1% (10 mg/mL) injection 3 mg 0.3 mL Subcutaneous Once PRN Lalit Mcmahon MD ??? ceFAZolin (Ancef) 2 g vial attach to sodium chloride 0.9% 100 mL Mini-Bag Plus 2 g Intravenous Once Lalit Mmcahon MD PAST SURGICAL HISTORY: History reviewed. No [...] HF, QRS > 150 ms presents for MANAGER BUSINESS INFORMATION-D placement. Backup would be LBBAP lead. Antibiotics: cefazolin Rationales for, intended benefits and potential risk of planned procedures reviewed. The patient indicated understanding and agreement with the plan. Informed consent signed. Procedure checklist completed. Fadi Nunez MD Cardiac Electrophysiology Fellow [facility] Pager [phone] 07/23/2022 I met with the patient today [...] agreement. ? Dr. Lalit Mcmahon, electrophysiology attending ([id number]) documented in this encounter Miscellaneous Notes * Brief Op Note - Lalit Mcmahon MD - 07/23/2022 4:04 PM EDT Brief Operative Note Patient Name: Luna Mott : [id number] MR#: [id number] Case Date: 07/23/2022 Surgeon: Surgeon(s) and Role: [...] EST Hospital Encounter Non-Invasive [place] [address] Arrived Scheduled Orders Name Type Priority Associated Diagnoses Orde r Schedule EKG 12 Lead ECG Routine Cardiac resynchronization therapy defibrillator (MANAGER BUSINESS INFORMATION-D) in place One Time for 1 Occurrences [...] (Bezet) 522 ms MUSE SYSTEM Calculated R [place] 78 degrees MUSE SYSTEM Calculated T [place] -71 degrees MUSE SYSTEM INTERPRETATION AV dual-paced [...] who have questions please contact the health school child care attendant that requested your imaging first. ? Narrative [...] patients who have questions please contactthe health school child care attendant that requested your imaging first. Lalit Mcmahon MD IMG DX ORDERABLES * ELECTROPHYSIOLOGY PROCEDURE (07/23/2022 1:11 PM EDT) Anatomical Region Laterality Modality Other Narrative 07/23/2022 4:24 PM EDT Table formatting from the original result was not included. BIVENTRICULAR ICD IMPLANTATION Doper Operator: Lalit Mcmahon MD Fellow: Fadi Nunez [...] the entire procedure. LEAD AND GENERATOR DATA: University Teacher Model # Serial # Generator [employer] [id number] Atrial Lead [employer] 7841 [id number] RV Lead [employer] 0672 [id number] LV Lead [employer] [id number] [id number] PACE/SENSE DATA: Sensed wave (mV) Threshold (V) [...] (cGycm2) 300 CONCLUSIONS: Successful implantation of a [employer] biventricular ICD for primary prevention and treatment of symptoms related to congestive heart failure. Follow up in EP clinic in 1-2 months. Procedures performed: new ICD system ( cpt 00121-Y2); implant LV lead at time of ICD insertion (cpt 91726) I have read, edited and approve of this report: Lalit Mcmahon MD S Cardiac Electrophysiology 07/23/2022 4:22 PM Procedure Note Lalit Mcmahon MD - 07/23/2022 BIVENTRICULAR ICD IMPLANTATION Doper Operator: Lalit Mcmahon MD Fellow: Fadi Nunez [...] in the entireprocedure. LEAD AND GENERATOR DATA: University Teacher Model # Serial # Generator [employer] [id number] Atrial Lead [employer] 7841 [id number] RV Lead [employer] 0672 564178 LV Lead [employer] 4674 [id number] PACE/SENSE DATA: Sensed wave (mV) Threshold (V) [...] (cGycm2) 300 CONCLUSIONS: Successful implantation of a [employer] biventricular ICD forprimary prevention and treatment of symptoms related to congestive heartfailure. Follow up in EP clinic in 1-2 months. Procedures performed: new ICD system ( cpt 61413-I0); implant LV lead attime of ICD insertion (cpt 67430) I have read, edited and approve of this report: Lalit Mcmahon MD [facility] Cardiac Electrophysiology 07/23/2022 4:22 PM Lalit Mcmahon MD EP PROCEDURE ORDERAB LES * POCT Glucose (07/23/2022 12:54 PM EDT) Glucose, POC 83 65 - 199 mg/dL [facility] Comment: Supplemental ranges: <140 mg/dL before meals <180 mg/dL all other times of the day Blood 07/23/2022 12:5 4 PM EDT 07/23/2022 12:54 PM EDT Lalit Mcmahon MD POINT OF CARE TEST O RDERABLES Performing Organization Address [facility] Co de Phone Number [facility] [place] [address] * EKG 12 Lead (07/23/2022 12:33 PM EDT) Ventricular rate 72 BPM MUSE SYSTEM Atrial Rate 72 BPM MUSE SYSTEM P-R Interval 158 ms MUSE SYSTEM QRS Duration 176 ms MUSE SYSTEM Q-T Interval 458 ms MUSE SYSTEM QTC Calculated (Bezet) 501 ms MUSE SYSTEM Calculated P [place] 34 degrees MUSE SYSTEM Calculated R [place] 12 degrees MUSE SYSTEM Calculated T [place] -173 degrees MUSE SYSTEM INTERPRETATION Normal sinus rhythm Left bundle branch block Abnormal ECG No previous ECGs available Confirmed by MD Salome, Lalit ([id number]) on 07/23/2022 1:19:03 PM MUSE SYSTEM 07/23/2022 12:3 3 PM EDT 07/23/2022 1:19 PM EDT Lalit Mcmahon MD ECG ORDERABLES Performing Organization Address [facility] de Phone Number MUSE SYSTEM * Differential, Automated (07/23/2022 11:55 AM EDT) Neutrophil % 62.6 % [facility] Neutrophil Absolute 4.14 1.70 - 6.10 x10(3)/[facility] Lymph % 27.0 % [facility] Lymphocytes Abs 1.8 0.9 - 3.2 x10(3)/[facility] Monocyte % 7.3 % [facility] Monocyte Abs 0.5 0.3 - 0.9 x10(3)/[facility] Eos % 2.3 % [facility] Eosinophils Abs 0.2 0.0 - 0.4 x10(3)/[facility] Basophil % 0.6 % [facility] Baso Absolute 0.0 0.0 - 0.1 x10(3)/[facility] Immature Gran % 0.20 % [facility] Comment: Immature granulocytes(IG's)percentage and absolute count will include metamyelocytes, myelocytes, and promyelocytes. Blood smears from CBCs yielding IG's will be scanned manually for concordance. If this scan disagrees with the automated IG or if promyelocytes are noted, a manual differential will be performed. Immature Gran Absolute 0.01 0.00 - 0.04 x10(3)/[facility] Blood 07/23/2022 11:5 5 AM EDT 07/23/2022 12:07 PM EDT Narrative Resulting Agency Comment Spec In Lab Lalit Mcmahon MD HEMATOLOGY ORDERABLE S [facility] [place] [address] * Hemogram (07/23/2022 11:55 AM EDT) White Blood Cell 6.6 4.0 - 9.5 x10(3)/[facility] Red Blood Cell 4.50 4.00 - 5.21 x10(6)/[facility] Hemoglobin 13.7 11.7 - [...] CENTER LABORATORY Platelet 193 145 - 357 x10(3)/[facility] RDW Standard Deviation 45.5 37.0 - 46.0 fL [facility] RDW coefficient of variation 13.2 11.5 - 14.1 % [facility] Mean Platelet Volume 9.5 7.6 - 12.9 fL [facility] NRBC% auto 0.0 % [facility] NRBC Absolute 0.000 0.000 - 0.000 x10(3)/mcL [facility] Blood 07/23/2022 11:5 5 AM EDT 07/23/2022 12:07 PM EDT Narrative Resulting Agency Comment Spec In Lab Lalit Mcmahon MD HEMATOLOGY ORDERABLE S [facility] [address] [place] [address] * (ABNORMAL) BMP w/fasting Glucose (07/23/2022 11:55 [...] of Diabetes Mellitus, Position Statement from the [place] [employer]. ??Diabetes Care, Volume 33, Supplement 1, Mar 2009 Blood Urea Nitrogen 23(H) 8 - 18 mg/dL [facility] Creatinine 1.07 0.70 - 1.20 mg/dL [facility] Sodium 141 135 - [...] questions. Chloride 106 98 - 107 mmol/L [facility] Carbon Dioxide 26 22 - 31 mmol/L [facility] Anion Gap 9 5 - 15 mmol/L [facility] Calcium 9.7 8.5 - 10.5 mg/dL [facility] Est Glomerular Filtration Rate 55(L) >=60 mL/min/1. 73 m?? [facility] Comment: This patient's estimated [...] Mcmahon MD CHEMISTRY ORDERABLES Performing Organization Address [facility] Co de Phone Number [facility] [place] [address] * Prothrombin Time (07/23/2022 11:55 AM EDT) [...] MD HEMATOLOGY ORDERABLE S Performing Organization Address City/[facility] Co de Phone Number [facility] [place] [address] documented in this encounter Visit Diagnoses Diagnosis HFrEF (heart failure with reduced ejection fraction)- Primary Left bundle branch block Other left bundle branch block Nonischemic cardiomyopathy Other primary cardiomyopathies Cardiac resynchronization therapy defibrillator (MANAGER BUSINESS INFORMATION-D) in place Left bundle branch block Other [...] Routine documented in this encounter Care Teams Line Service Person Relationship Specialty Start Date End Date Lolly Oliveira MD [address] [place] [address] PCP - General 07/17/13 documented as of this encounter
--- OUTSIDE RECORDS SUMMARY | 2024-03-29 11:07 | XMS_ITS | Encounter Summary ---
Author Organization [facility] Address [facility] [place] [address] Care Team Providers Care Insurance Processing Clerk Name Role Phone Lolly Oliveira MD Primary Care Provider [phone] Encounter Details Date Type Department Care Team (Late st Contact Info) Description 07/16/2022 Telephone Cardiology at [address] [phone] Lalit Mcmahon MD [facility] [place] [address] Social History Tobacco Use Types Packs/Day Years [...] her nonischemic cardiomyopathy. She is scheduled for PREPPER-D implantation next week and looks forward to the procedure. We will see each other next week. Lalit Mcmahon MD [facility] Cardiac Electrophysiology 07/16/2022 8:52 AM documented in this encounter Plan of Treatment Upcoming Encounters Date Type Department Care Team (Late st Contact Info) Description 04/15/2024 10:00 AM EST Hospital Encounter [place] [address] Arrived documented as of this encounter Visit Diagnoses Not on filedocumented in this encounter Care Teams Insurance Processing Clerk Relationship Specialty Start Date End Date Lolly Oliveira MD [address] [place] [address] PCP - General 07/17/13 documented as of this encounter
--- OUTSIDE RECORDS SUMMARY | 2024-03-29 11:07 | XMS_ITS | Encounter Summary ---
Author Organization [facility] [place] [address] Care Team Providers Care Well Cleaner Name Role Phone Lolly Oliveira MD Primary Care Provider [phone] Reason for Visit * Reason Onset Date Comments Post Procedure Call 07/30/2022 Encounter Details Date Type Department Care Team (Late st Contact Info) Description 07/30/2022 Notes Only Cardiology at [address] [phone] Rosenda Sutton, RN Post Procedure Call Social [...] 07/30/2022 9:59 AM EDTSummary: Post Procedure Call: TAX SERVICES INTERN implant EP RN Post-Procedure Note: Date of Follow Up Call: 07/30/2022 Spoke With: Patient Procedure Type (choose all that apply): ICD Performing MIRLANDE Mcmahon Date of Procedure: 07/23/2022 Date of Discharge: 07/24/2022 Follow Up EP Visit Scheduled?: No No Follow Up Visit Reason: Follow up outside Outside Location: [facility] Date of Non EP Visit: [...] Note: Follow-up Recommendations for Providers: - s/p TAX SERVICES INTERN-D implant - post implant QRS 130 ms [...] [facility] Hospital Encounter Non-[place] [address] Arrived documented as of this encounter Visit Diagnoses Not on filedocumented in this encounter Care Teams Well Cleaner Relationship Specialty Start Date End Date Lolly Oliveira MD [address] [place] [address] PCP - General 07/17/13 documented as of this encounter
--- OUTSIDE RECORDS SUMMARY | 2024-03-29 11:07 | XMS_ITS | Encounter Summary ---
Author Organization [facility] Address [facility] [place] [address] Care Team Providers Care Storage Facility Rental Clerk Name Role Phone Lolly Oliveira MD Primary Care Provider [phone] Encounter Details Date Type Department Care Team (Late st Contact Info) Description 11/11/2022 Orders Only Cardiology at [address] [phone] Lalit Mcmahon MD [facility] [place] [address] Nonischemic cardiomyopathy Social History Tobacco Use Types [...] [facility] Hospital Encounter Non-Invasive [place] [phone] Arrived documented as of this encounter Visit Diagnoses Diagnosis Nonischemic cardiomyopathy Other primary cardiomyopathies documented in this encounter Care Teams Storage Facility Rental Clerk Relationship Specialty Start Date End Date Berrian, Lolly M, MD [address] [place] [address] PCP - General 07/17/13 documented as of this encounter
--- OUTSIDE RECORDS SUMMARY | 2024-03-29 11:07 | XMS_ITS | Encounter Summary ---
[place] [address] Care Team Providers Care Automation Analyst Name Role Phone Lolly Oliveira MD Primary Care Provider [phone] Encounter Details Date Type Department Care Team [...] AM EST Hospital Encounter Non[place] [address] Arrived documented as of this encounter Visit Diagnoses Not on filedocumented in this encounter Care Teams Automation Analyst Relationship Specialty Start Date End Date Lolly Oliveira MD [address] [place] [address] PCP - General 07/17/13 documented as of this encounter
--- OUTSIDE RECORDS SUMMARY | 2024-03-29 11:07 | XMS_ITS | Encounter Summary ---
Author Organization [facility] [place] [address] Care Team Providers Care Window Shade Ring Sewer Name Role Phone Lolly Oliveira MD Primary Care Provider [phone] Encounter Details Date Type Department Care Team (Latest Contact Info) Description 04/21/2023 10:00 AM EST - 04/21/2023 11:59 PM EST Hospital Encounter [place] [phone] Discharge Disposition: Home Social History Tobacco Use [...] with spacer fluticasone propionate (Flonase) 50 mcg/actuation [place], Suspension 1 spray by Each Nare [...] AM EST Hospital Encounter Non-[place] [address] Arrived documented as of this [...] filedocumented in this encounter Care Teams Window Shade Ring Sewer Relationship Specialty Start Date End Date Lolly Oliveira MD [address] [place] [address] PCP - General 07/17/13 documented as of this encounter
--- OUTSIDE RECORDS SUMMARY | 2024-03-29 11:07 | XMS_ITS | Encounter Summary ---
Author Organization [facility] Address [address] [place] [address] Care Team Providers Care Quality Improvement Specialist Name Role Phone Lolly Oliveira MD Primary Care Provider [phone] Encounter Details Date Type Department Care Team (Late st Contact Info) Description 06/16/2012 Results Only [facility] - [facility] [address] [place], [place] [id number] Lolly Oliveira MD [address] [place], [place] [id number] Social History Tobacco Use Types Packs/Day Years [...] ? JING ALVARENGA ? Accession #: ? [id number] : ? 1950 (Age: 61) ??F ?Collect [...] ORDERABLES Final Resu lt [facility] [address] [place] [address] documented in this encounter Visit Diagnoses Not on filedocumented in this encounter Care Teams Quality Improvement Specialist Relationship Specialty Start Date End Date Lolly Oliveira MD [address] [place] [address] PCP - General 11/13/08 documented as of this encounter
--- OUTSIDE RECORDS SUMMARY | 2024-03-29 11:07 | XMS_ITS | Encounter Summary ---
Author Organization [facility] Address [address] [place] [address] Care Team Providers Care Cup Machine Operator Name Role Phone Lolly Oliveira MD Primary Care Provider [phone] Encounter Details Date Type Department Care Team (Late st Contact Info) Description 05/29/2002 Results Only [facility] [address] [place] [address] Silvia Diehl, [address] [place] [phone] Social History Tobacco Use Types Packs/Day Years [...] ? LYLE, JING ? Accession #: ? [id number] : ? 1950 (Age: 51) ??F ?Collect Date: ? 05/29/2002 Location: ? [facility] ? Receive Date: ? 05/31/2002 Provider: ?SILVIA DIEHL SHOE PULLER Copy to: ? Specimen/Source: ?ThinPrep Pap Test, [...] [facility] 05/29/2002 05/31/2002 us Silvia Diehl SHOE PULLER PATHOLOGY ORDERABLES Final R esult [facility] [address] [place] [address] documented in this encounter Visit Diagnoses Not on filedocumented in this encounter Care Teams Cup Machine Operator Relationship Specialty Start Date End Date Lolly Oliveira MD [address] [place] [address] PCP - General 11/13/08 documented as of this encounter
--- OUTSIDE RECORDS SUMMARY | 2024-03-29 11:07 | XMS_ITS | Encounter Summary ---
Author Organization [facility] [place] [address] Care Team Providers Care Wire Taper Name Role Phone Lolly Oliveira MD Primary Care Provider [phone] Encounter Details Date Type Department Care Team (Latest Contact Info) Description 07/20/2023 10:00 AM EDT - 07/20/2023 11:59 PM EDT Hospital Encounter Non-[place] [phone] Discharge Disposition: Home Social History Tobacco Use [...] with spacer fluticasone propionate (Flonase) 50 mcg/actuation [place], Suspension 1 spray by Each Nare route daily as needed. documented as of this encounter Plan of Treatment Upcoming Encounters Date Type Department Care Team (Late st Contact Info) Description 04/15/2024 10:00 AM EST Hospital Encounter Non-[place] [address] Arrived documented as of this encounter Procedures [...] filedocumented in this encounter Care Teams Wire Taper Relationship Specialty Start Date End Date Lolly Oliveira MD [address] [place] [address] PCP - General 07/17/13 documented as of this encounter
--- OUTSIDE RECORDS SUMMARY | 2024-03-29 11:07 | XMS_ITS | Encounter Summary ---
Author Organization [facility] [place] [address] Care Team Providers Care Handle Sewer Name Role Phone Lolly Oliveira MD Primary Care Provider [phone] Encounter Details Date Type Department Care Team (Late st Contact Info) Description 05/18/2023 Refill Dermatology at [address] [address] Nora Meredtih LPN Social History Tobacco Use Types Packs/Day [...] patient. She voiced understanding. Order sent to [facility] drug. documented in this encounter Plan of Treatment Upcoming Encounters Date Type Department Care Team (Late st Contact Info) Description 04/15/2024 10:00 AM EST Hospital Encounter Non-Invasive [place] [address] Arrived documented as of this encounter Visit Diagnoses Not on filedocumented in this encounter Care Teams Handle Sewer Relationship Specialty Start Date End Date Lolly Oliveira MD [address] [place] [address] PCP - General 07/17/13 documented as of this encounter
--- OUTSIDE RECORDS SUMMARY | 2024-03-29 11:07 | XMS_ITS | Encounter Summary ---
Author Organization [facility] Address [address] [place] [address] Care Team Providers Care Health Counselor Name Role Phone Lolly Oliveira MD Primary Care Provider [phone] Encounter Details Date Type Department Care Team (Late st Contact Info) Description 11/13/2020 Lab Requisition [facility] Pathology & Laboratory Medicine - [address] [address] Outr Resulting Lab, Provider Social History Tobacco [...] - GENER AL ORDERABLES Final Result [facility] [address] [place] [address] * COVID-19 TESTING (11/13/2020 7:30 EDT) COVID-19 rt-PCR Result Negative Negative 11/14/2020 11:46 EDT [facility] Comment: This test has [...] performed using the med SARS-CoV-2 assay ([employer] on the Med 6800 System Performing Lab Med [address] [facility] Lab 11/14/2020 11:46 EDT [facility] Swab 11/13/2020 7:30 EDT 11/13/2020 20:57 EDT us Provider Outr Resulting Lab MICROBIOLOGY - GENER AL ORDERABLES Final Result Performing Organization Address [facility] Co de Phone Number [facility] [address] [place] [address] documented in this encounter Visit Diagnoses Not on filedocumented in this encounter Care Teams Health Counselor Relationship Specialty Start Date End Date Lolly Oliveira MD [address] [place] [address] PCP - General 11/13/08 documented as of this encounter
--- OUTSIDE RECORDS SUMMARY | 2024-03-29 11:07 | XMS_ITS | Encounter Summary ---
Author Organization [facility] Address [address] [place] [address] Care Team Providers Care Hydrochloric Manufacturing Supervisor Name Role Phone Lolly Oliveira MD Primary Care Provider [phone] Encounter Details Date Type Department Care Team (Late st Contact Info) Description 02/20/2020 Lab Requisition [facility] Pathology & Laboratory Medicine - [address] [address] Outr Resulting Lab, Provider Social History Tobacco [...] in accordance with CLIA regulations, [employer] [place] (CAP) guidelines (May 25, 2019), and FDA guidance (May 06, 2019). This test is only for use under the Food and Drug Administration's Emergency Use Authorization. Swab ENTIRE NASOPHARYNX / Unknown 02/19/2020 16:30 EST 02/20/2020 16:09 EST us Provider Outr Resulting Lab MICROBIOLOGY - GENER AL ORDERABLES Final Result [facility] [place] * COVID-19 TESTING (02/19/2020 16:30 EST) COVID-19 rt-PCR Result NEGATIVE Negative 02/22/2020 23:[address] [facility] Comment: 2019-novel Coronavirus (2019-nCoV) not [...] in accordance with CLIA regulations, [employer] [place] (CAP) guidelines (May 25, 2019), and FDA guidance (May 06, 2019). This test is only for use under the Food and Drug Administration's Emergency Use Authorization. Performing Lab [facility] 02/22/2020 23:41 EST [facility] Swab 02/19/2020 16:3 0 EST 02/20/2020 16:09 EST us Provider Outr Resulting Lab MICROBIOLOGY - GENER AL ORDERABLES Final Result [facility] [address] [place] [address] [facility] [place], [place] documented in this encounter Visit Diagnoses Not on filedocumented in this encounter Care Teams Hydrochloric Manufacturing Supervisor Relationship Specialty Start Date End Date Lolly Oliveira MD [address] [place] [address] PCP - General 11/13/08 documented as of this encounter
--- OUTSIDE RECORDS SUMMARY | 2024-03-29 11:07 | XMS_ITS | Encounter Summary ---
Author Organization [facility] [place] [address] Care Team Providers Care Process Controller Name Role Phone Lolly Oliveira MD Primary Care Provider [phone] Encounter Details Date Type Department Care Team (Latest Contact Info) Description 10/18/2023 10:00 AM EDT - 10/18/2023 11:59 PM EDT Hospital Encounter [place] [address] Discharge Disposition: Home Social History Tobacco Use [...] with spacer fluticasone propionate (Flonase) 50 mcg/actuation [place], Suspension 1 spray by Each Nare route daily as needed. documented as of this encounter Plan of Treatment Upcoming Encounters Date Type Department Care Team (Late st Contact Info) Description 04/15/2024 10:00 AM EST Hospital Encounter Non-[place]vasive [place] [address] Arrived documented as of this encounter Procedures [...] filedocumented in this encounter Care Teams Process Controller Relationship Specialty Start Date End Date Lolly Oliveira MD [address] [place] [address] PCP - General 07/17/13 documented as of this encounter
--- OUTSIDE RECORDS SUMMARY | 2024-03-29 11:07 | XMS_ITS | Encounter Summary ---
Author Organization [facility] Address [address] [place] [address] Care Team Providers Care Director Biology Name Role Phone Lolly Oliveira MD Primary Care Provider [phone] Encounter Details Date Type Department Care Team (Late st Contact Info) Description 05/02/2004 Results Only [facility] conversion [address] [place] [address] Lolly Oliveira MD [address] [place], [place] [address] Social History Tobacco Use Types Packs/Day Years [...] 68. [facility] Report Status Final [id number] [facility] 05/02/2004 9:32 EST 05/10/2004 9:32 EST us Lolly Oliveira MD MICROBIOLOGY - GENERAL ORDERABL ES Final Result [facility] [address] [place] [address] * CYTOPATHOLOGY (05/02/2004 0:00 EST) Pathology Report: CYTOPATHOLOGY REPORT Reports generated via electronic interface contain original data; however they are lacking the format of the original report. Caution should be taken when reading/interpreti ng unformatted reports. Name: ? JING ALVARENGA ? Accession #: ? [id number] : ? 1950 (Age: 53) ??F ?Collect [...] ORDERABLES Final Resu lt Performing Organization Address City/State/[facility] Co de Phone Number [facility] [address] [place] [address] documented in this encounter Visit Diagnoses Not on filedocumented in this encounter Care Teams Director Biology Relationship Specialty Start Date End Date Lolly Oliveira MD [address] [place] [address] PCP - General 11/13/08 documented as of this encounter
--- OUTSIDE RECORDS SUMMARY | 2024-03-29 11:07 | XMS_ITS | Encounter Summary ---
Author Organization [facility] [place] [address] Care Team Providers Care Pharmacogeneticist Name Role Phone Lolly Oliveira MD Primary Care Provider [phone] Reason for Visit * Auth/Cert (Routine) Specialty Diagnoses / Procedures Referred By Contac t Referred To Contact Diagnoses Left bundle-branch block, unspecified Other cardiomyopathies Left bundle branch block [I44.7]Nonischemic cardiomyopathy [I42.8] Procedures PRG CATH PLMT LEFT HEART CATH & ARTS W/INJ & ANGIO IMG S&I ELECTROPHYSIOLOGY PROCEDURE Lalit Mcmahon MD [facility] [place] [address] [facility] Referral ID Status Reason Start Date Expiration Date Visits Re quested Visits Authorized [id number] 1 1 Encounter Details Date Type Department Care Team (Late st Contact Info) Description 07/23/2022 1:00 PM EDT - 07/23/2022 5:30 PM EDT Surgery Electrophys[place] [address] Lalit Mcmahon MD [facility] [place] [address] [address] ELECTROPHYSIOLOGY PROCEDURE Social History Tobacco Use Types [...] Luna Mott Patient Age: 71 y.o. Language: Malawian Race: White Ethnicity: Not nor Admit date: 07/23/2022 Discharge date and time: 07/24/22 Attending Physician: Lalit Mcmahon MD Discharge Physician: Lalit Mcmahon MD Follow-up Recommendations for Providers: - s/p PRODUCTION BORING MACHINE OPERATOR-D implant - post implant QRS [...] lentigo Operations/Major Procedures: 07/23/22: [facility] PRODUCTION BORING MACHINE OPERATOR-D implant History of Presentation: 71 y.o. female with a history of HFrEF, LBBB, QRS >150, NYHA II who is POD#1 of PRODUCTION BORING MACHINE OPERATOR-D implant ([employer]). Hospital Course: Elective admission for PRODUCTION BORING MACHINE OPERATOR-D implant Admitted post-implant for pain [...] failure with reduced ejection fraction) [I50.20] PRODUCTION BORING MACHINE OPERATOR-D implant Admission Condition: good Indication [...] g Refills: 3 fluticasone propionate 50 mcg/actuation [place], Suspension Commonly known as: Flonase 1 spray [...] incision. Make sure to use a cloth folder hand (such as a towel) in between the [...] F. The office scheduling phone number is [phone]. ARM MOVEMENT RESTRICTIONS POST-IMPLANT - Do not [...] please call the Cardiac ElectrophysiologyTriage Nurse at [phone], option 3. General Instructions None Discharge References/Attachments [...] incision. Make sure to use a cloth folder hand (such as a towel) in between the [...] F. The office scheduling phone number is [phone]. ARM MOVEMENT RESTRICTIONS POST-IMPLANT - Do not [...] please call the Cardiac ElectrophysiologyTriage Nurse at [phone], option 3. documented in this encounter Medications [...] with spacer fluticasone propionate (Flonase) 50 mcg/actuation [place], Suspension 1 spray by Each Nare route [...] Cardiac Electrophysiology Post-Implant Device Interrogation Luna Mott [id number] 07/24/2022 History: Luna Mott is a 71 y.o. female with a history of HFrEF, LBBB, QRS >150, NYHA II who is POD#1 of PRODUCTION BORING MACHINE OPERATOR-D implant ([employer]). Overall feels well this morning. Ready [...] WOB Neuro- A&Ox3 Device Interrogation: Data ?? Cupola Worker Model # Serial # Generator [employer] [id number] Atrial Lead [employer] [id number] RV Lead [employer] 0672 [id number] LV Lead [employer] 4674 [id number] ?? Diagnostics Pacing Mode: DDD 60-130 Underlying Rhythm: [place] Atrial Episodes: None Ventricular Episodes: None FINAL PROGRAMMING: Pacing: Mode Lower rate (ppm) Upper rate (ppm) ?? DDD 60 130 VF: Rate (bpm) #Antitachycardia pacing First shock energy (J) ?? 200 Quick convert 41 VT: 170 Monitor only Monitor only ? Battery and Leads Impedances (ohms) Sensing (mV) Thresholds HV RA RV LV RA RV LV RA RV LV 73 220 086 9131 (LVa) 7.7 13.1 >25 0.4V @ 0.4 ms 0.4V @ 0.4 ms 0.5 V @ 1.0 ms POD#1 CXR: All leads in nominal positioning Impression: 71 y.o. female who is s/p PRODUCTION BORING MACHINE OPERATOR-D implant for LBBB, NYHA II, [...] [facility]) Fadi Nunez MD 07/24/2022 Pager: [phone] I met with the patient today and [...] agreement. ? Dr. Lalit Mcmahon, electrophysiology attending ([id number]) * Zaria Wright RN - 07/23/2022 8:28 [...] QRS > 150 ms presents for PRODUCTION BORING MACHINE OPERATOR-D placement. ROS: Denies recent fevers [...] 0.9) flush 5 mL 5 mL Intravenous [id number] ramos MD ??? sodium chloride 0.9 % [...] QRS > 150 ms presents for PRODUCTION BORING MACHINE OPERATOR-D placement. Backup would be LBBAP lead. Antibiotics: cefazolin Rationales for, intended benefits and potential risk of planned procedures reviewed. The patient indicated understanding and agreement with the plan. Informed consent signed. Procedure checklist completed. Fadi Nunez MD Cardiac Electrophysiology Fellow [facility] Pager [phone] 07/23/2022 I met with the patient today [...] agreement. ? Dr. Lalit Mcmahon, electrophysiology attending ([id number]) documented in this encounter Miscellaneous Notes * Brief Op Note - Lalit Mcmahon MD - 07/23/2022 4:04 PM EDT Brief Operative Note Patient Name: Luna Mott : [id number] MR#: [id number] Case Date: 07/23/2022 Surgeon: Surgeon(s) and Role: [...] AM EST Hospital Encounter Non-[place] [address] Arrived Scheduled Orders Name Type Priority Associated Diagnoses Orde r Schedule EKG 12 Lead ECG Routine Cardiac resynchronization therapy defibrillator (PRODUCTION BORING MACHINE OPERATOR-D) in place One Time for [...] (Bezet) 522 ms MUSE SYSTEM Calculated R [place] 78 degrees MUSE SYSTEM Calculated T [place] -71 degrees MUSE SYSTEM INTERPRETATION AV dual-paced [...] who have questions please contact the health residential child care counselor that requested your imaging first. ? [...] patients who have questions please contactthe health residential child care counselor that requested your imaging first. Lalit Mcmahon MD IMG DX ORDERABLES * ELECTROPHYSIOLOGY PROCEDURE (07/23/2022 1:11 PM EDT) Anatomical Region Laterality Modality Other Narrative 07/23/2022 4:24 PM EDT Table formatting from the original result was not included. BIVENTRICULAR ICD IMPLANTATION Neighborhood Conservation Officer: Lalit Mcmahon MD Fellow: Fadi Nunez [...] lateral branch of the CS in the BAHRAINI view. This branch was cannulated with a [...] the entire procedure. LEAD AND GENERATOR DATA: Cupola Worker Model # Serial # Generator [employer] [id number] Atrial Lead [employer] 7841 [id number] RV Lead [employer] 0672 [id number] LV Lead [employer] 4674 [id number] PACE/SENSE DATA: Sensed wave (mV) Threshold (V) [...] (cGycm2) 300 CONCLUSIONS: Successful implantation of a [employer] biventricular ICD for primary prevention and treatment of symptoms related to congestive heart failure. Follow up in EP clinic in 1-2 months. Procedures performed: new ICD system ( cpt 66235-P8); implant LV lead at time of ICD insertion (cpt 79836) I have read, edited and approve of this report: Lalit Mcmahon MD [facility] Cardiac Electrophysiology 07/23/2022 4:22 PM Procedure Note Lalit Mcmahon MD - 07/23/2022 BIVENTRICULAR ICD IMPLANTATION Neighborhood Conservation Officer: Lalit Mcmahon MD Fellow: Fadi Nunez [...] appropriate lateralbranch of the CS in the BAHRAINI view. This branch was cannulated with a [...] in the entireprocedure. LEAD AND GENERATOR DATA: Cupola Worker Model # Serial # Generator [employer] [id number] Atrial Lead [employer] 7841 [id number] RV Lead [employer] 0672 [id number] LV Lead [employer] 4674 217660 PACE/SENSE DATA: Sensed wave (mV) Threshold (V) [...] (cGycm2) 300 CONCLUSIONS: Successful implantation of a [employer] biventricular ICD forprimary prevention and treatment of symptoms related to congestive heartfailure. Follow up in EP clinic in 1-2 months. Procedures performed: new ICD system ( cpt 86430-Z0); implant LV lead attime of ICD insertion (cpt 58076) I have read, edited and approve of this report: Lalit Mcmahon MD S Cardiac Electrophysiology 07/23/2022 4:22 PM Lalit Mcmahon MD EP PROCEDURE ORDERAB LES * POCT Glucose (07/23/2022 12:54 PM EDT) [facility] Signature Glucose, POC 83 65 - 199 mg/dL [facility] Comment: Supplemental ranges: <140 mg/dL before meals <180 mg/dL all other times of the day Blood 07/23/2022 12:5 4 PM EDT 07/23/2022 12:54 PM EDT Lalit Mcmahon MD POINT OF CARE TEST O RDERABLES Performing Organization Address City/[facility]/ZIP Co de Phone Number [facility] [place] [address] * EKG 12 Lead (07/23/2022 12:33 PM EDT) Ventricular rate 72 BPM MUSE SYSTEM Atrial Rate 72 BPM MUSE SYSTEM P-R Interval 158 ms MUSE SYSTEM QRS Duration 176 ms MUSE SYSTEM Q-T Interval 458 ms MUSE SYSTEM QTC Calculated (Bezet) 501 ms MUSE SYSTEM Calculated P [place] 34 degrees MUSE SYSTEM Calculated R [place] 12 degrees MUSE SYSTEM Calculated T [place] -173 degrees MUSE SYSTEM INTERPRETATION Normal sinus rhythm Left bundle branch block Abnormal ECG No previous ECGs available Confirmed by MD Salome, Lalit ([id number]) on 07/23/2022 1:19:03 PM MUSE SYSTEM 07/23/2022 12:3 3 PM EDT 07/23/2022 1:19 PM EDT Lalit Mcmahon MD ECG ORDERABLES Performing Organization Address [facility]/ZIP Co de Phone Number MUSE SYSTEM * Differential, Automated (07/23/2022 11:55 AM EDT) Neutrophil % 62.6 % [facility] Neutrophil Absolute 4.14 1.70 - 6.10 x10(3)/[facility] LABORATORY Lymph % 27.0 % [facility] Lymphocytes Abs 1.8 0.9 - 3.2 x10(3)/[facility] LABORATORY Monocyte % 7.3 % [facility] IT[facility] LAB[facility] Monocyte Abs 0.5 0.3 - 0.9 x10(3)/[facility] LABORATORY Eos % 2.3 % [facility] Eosinophils Abs 0.2 0.0 - 0.4 x10(3)/[facility] LABORATORY Basophil % 0.6 % [facility] LAB[facility] Baso Absolute 0.0 0.0 - 0.1 x10(3)/[facility] LABORATORY Immature Gran % 0.20 % [facility] Comment: Immature granulocytes(IG's)percentage and absolute count will include metamyelocytes, myelocytes, and promyelocytes. Blood smears from CBCs yielding IG's will be scanned manually for concordance. If this scan disagrees with the automated IG or if promyelocytes are noted, a manual differential will be performed. Immature Gran Absolute 0.01 0.00 - 0.04 x10(3)/[facility] LABORATORY Blood 07/23/2022 11:5 5 AM EDT 07/23/2022 12:07 PM EDT Narrative Resulting Agency Comment Spec In Lab Lalit Mcmahon MD HEMATOLOGY ORDERABLE S [facility] [place] [address] * Hemogram (07/23/2022 11:55 AM EDT) White Blood Cell 6.6 4.0 - 9.5 x10(3)/[facility] LABORATORY Red Blood Cell 4.50 4.00 - 5.21 x10(6)/[facility]AT[facility] Hemoglobin 13.7 11.7 - 15.5 g/dL [facility] Hematocrit 42.5 35.7 - 45.8 % [facility] Mean Cell Volume 94.4 82.6 - 94.4 fL [facility] Mean Cell Hemoglobin 30.4 27.1 - 32.0 pg [facility] Mean Cell Hemoglobin Concentration 32.2 31.7 - 35.0 g/dL [facility] Platelet 193 145 - 357 x10(3)/[facility] LABORATORY RDW Standard Deviation 45.5 37.0 - 46.0 fL [facility] RDW coefficient of variation 13.2 11.5 - 14.1 % [facility] Mean Platelet Volume 9.5 7.6 - 12.9 fL [facility] NRBC% auto 0.0 % [facility] NRBC Absolute 0.000 0.000 - 0.000 x10(3)/[facility] LABORATORY Blood 07/23/2022 11:5 5 AM EDT 07/23/2022 12:07 PM EDT Narrative Resulting Agency Comment Spec In Lab Lalit Mcmahon MD HEMATOLOGY ORDERABLE S [facility] [place] [address] * (ABNORMAL) BMP w/fasting Glucose (07/23/2022 11:55 AM EDT) Glucose Fasting 110(H) 65 - 99 mg/dL [facility] Comment: ?Fasting* Glucose Interpretive Criteria [...] Nitrogen 23(H) 8 - 18 mg/dL [facility] Creatinine 1.07 0.70 - 1.20 mg/dL [facility] Sodium 141 135 - 145 mmol/L [facility] Potassium 4.8 3.5 - 5.0 mmol/L [facility] Comment: Please note: ??Patients with WBC >100,000 may have falsely elevated Potassium levels. ??For accurate Potassium quantification in these patients send serum separator tube (gold top) for subsequent determinations. ??Contact the Clinical Chemistry Laboratory if there are any questions. Chloride 106 98 - 107 mmol/L [facility] Carbon Dioxide 26 22 - 31 mmol/L [facility] Anion Gap 9 5 - 15 mmol/L [facility] Calcium 9.7 8.5 - 10.5 mg/dL [facility] Est Glomerular Filtration Rate 55(L) >=60 mL/min/1. 73 m?? [facility] Comment: This patient's estimated [...] Mcmahon MD CHEMISTRY ORDERABLES Performing Organization Address [facility] Co de Phone Number [facility] [place] [address] * Prothrombin Time (07/23/2022 11:55 AM EDT) Prothrombin Time 11.7 9.4 - 12.5 sec [facility] International Normalization Ratio 1.0 [facility] Comment: An INR <2.0 indicates [...] HEMATOLOGY ORDERABLE S Performing Organization Address City/[facility] Co de Phone Number [facility] [place] [address] documented in this encounter Visit Diagnoses Diagnosis HFrEF (heart failure with reduced ejection fraction)- Primary Left bundle branch block Other left bundle branch block Nonischemic cardiomyopathy Other primary cardiomyopathies Cardiac resynchronization therapy defibrillator (PRODUCTION BORING MACHINE OPERATOR-D) in place Left bundle branch [...] Routine documented in this encounter Care Teams Pharmacogeneticist Relationship Specialty Start Date End Date Lolly Oliveira MD [address] [place] [address] PCP - General 07/17/13 documented as of this encounter
--- OUTSIDE RECORDS SUMMARY | 2024-03-29 11:07 | XMS_ITS | Encounter Summary ---
Author Organization [facility] [place] [address] Care Team Providers Care Learning And Development Intern Name Role Phone Lolly Oliveira MD Primary Care Provider [phone] Encounter Details Date Type Department Care Team (Latest Contact Info) Description 10/23/2022 10:00 AM EDT - 10/23/2022 11:59 PM EDT Hospital Encounter [place] [address] Discharge Disposition: Home Social History Tobacco Use [...] with spacer fluticasone propionate (Flonase) 50 mcg/actuation [place], Suspension 1 spray by Each Nare route [...] [facility] [place] [address] Arrived documented as of this [...] this encounter Care Teams Learning And Development Intern Relationship Specialty Start Date End Date Lolly Oliveira MD [address] [place] [address] PCP - General 07/17/13 documented as of this encounter
--- OUTSIDE RECORDS SUMMARY | 2024-03-29 11:07 | XMS_ITS | Encounter Summary ---
Author Organization [facility] [address] Care Team Providers Care Cement Mason Maintenance Name Role Phone Lolly Oliveira MD Primary Care Provider [phone] Encounter Details Date Type Department Care Team (Late st Contact Info) Description 05/18/2023 Telephone Dermatology at [address] [address] Nora Meredith LPN Social History [...] [place] [facility] Encounter [place] [address] Arrived documented as of this encounter Visit Diagnoses Not on filedocumented in this encounter Care Teams Cement Mason Maintenance Relationship Specialty Start Date End Date Lolly Oliveira MD [address] [place] [address] PCP - General 07/17/13 documented as of this encounter
--- OUTSIDE RECORDS SUMMARY | 2024-03-29 11:07 | XMS_ITS | Encounter Summary ---
Author Organization [facility] [place] [address] Care Team Providers Care Psychiatric Orderly Name Role Phone Lolly Oliveira MD Primary Care Provider [phone] Encounter Details Date Type Department Care Team [...] AM EST Hospital Encounter Non[place] [address] Arrived documented as of this encounter Visit Diagnoses Not on filedocumented in this encounter Care Teams Psychiatric Orderly Relationship Specialty Start Date End Date Lolly Oliveira MD [address] [place] [address] PCP - General 07/17/13 documented as of this encounter
--- OUTSIDE RECORDS SUMMARY | 2024-03-29 11:07 | XMS_ITS | Encounter Summary ---
Author Organization [facility] Address [facility] [place] [address] Care Team Providers Care Manager Mortgage Name Role Phone Lolly Oliveira MD Primary Care Provider [phone] Encounter Details Date Type Department Care Team (Late st Contact Info) Description 05/03/2023 Telephone Cardiology at [address] [phone] Lalit Mcmahon MD [facility] [place] [address] Social History Tobacco Use Types Packs/Day Years [...] AM EST Hospital Encounter Non-[place] [address] Arrived documented as of this encounter Visit Diagnoses Not on filedocumented in this encounter Care Teams Manager Mortgage Relationship Specialty Start Date End Date Lolly Oliveira MD [address] [place] [address] PCP - General 07/17/13 documented as of this encounter
--- OUTSIDE RECORDS SUMMARY | 2024-03-29 11:08 | XMS_ITS | Encounter Summary ---
[place] [address] Care Team Providers Care User Experience Architect Name Role Phone Lolly Oliveira MD Primary Care Provider [phone] Encounter Details Date Type Department Care Team (Late st Contact Info) Description 07/17/2013 Orders [place] [phone] Lolly Oliveira MD [address] [place], [place] [id number] Social History Tobacco Use Types Packs/Day Years [...] EST Hospital Encounter Non-Invasive [place] [address] Arrived documented as of this encounter Procedures [...] OUTSIDE MAMMOGRAMS (PERFORMED ON 07/06/13 AND 07/14/13) [facility] DATED 07/17/13: DIAGNOSTIC IMAGING [...] in this encounter Care Teams User Experience Architect Relationship Specialty Start Date End Date Lolly Oliveira MD [address] [place] [address] PCP - General 07/17/13 documented as of this encounter
--- OUTSIDE RECORDS SUMMARY | 2024-03-29 11:08 | XMS_ITS | Encounter Summary ---
Author Organization [facility] [place] [address] Care Team Providers Care Revenue Accounting Manager Name Role Phone Lolly Oliveira MD Primary Care Provider [phone] Encounter Details Date Type Department Care Team (Late st Contact Info) Description 10/09/2021 Telephone Dermatology at [address] [address] Nora Meredith LPN Social [...] [facility] Hospital Encounter Non-Invasive [place] [address] Arrived documented as of this encounter Visit Diagnoses Not on filedocumented in this encounter Care Teams Revenue Accounting Manager Relationship Specialty Start Date End Date Lolly Oliveira MD [address] [place] [address] PCP - General 07/17/13 documented as of this encounter
--- OUTSIDE RECORDS SUMMARY | 2024-03-29 11:08 | XMS_ITS | Encounter Summary ---
Author Organization [facility] [address] Care Team Providers Care Export Sales Assistant Name Role Phone Lolly Oliveira MD Primary Care Provider [phone] Reason for Visit * Reason Comments Psoriasis Encounter Details Date Type Department Care Team (Late st Contact Info) Description 04/09/2022 1:45 PM EST Office Visit Dermatology at [address] [address] Clay Ramírez MD [address] [facility] [place] [address] Psoriasis, guttate Social History Tobacco Use Types [...] AM EST Hospital Encounter Non-Invasive [place] [address] Arrived documented as of this encounter Visit Diagnoses Diagnosis Psoriasis, guttate Other psoriasis documented in this encounter Care Teams Export Sales Assistant Relationship Specialty Start Date End Date Lolly Oliveira MD [address] [place] [address] PCP - General 07/17/13 documented as of this encounter
--- OUTSIDE RECORDS SUMMARY | 2024-03-29 11:08 | XMS_ITS | Encounter Summary ---
Author Organization [facility] [place] [address] Care Team Providers Care Manager News Name Role Phone Lolly Oliveira MD Primary Care Provider [phone] Encounter Details Date Type Department Care Team (Late st Contact Info) Description 06/29/2011 Orders [place] [address] Eleno Christian MD Social History Tobacco Use [...] [facility] Hospital Encounter [place] [address] Arrived documented as of this encounter Procedures [...] filedocumented in this encounter Care Teams Manager News Relationship Specialty Start Date End Date Lolly Oliveira MD [address] [place] [address] PCP - General 07/17/13 documented as of this encounter
--- OUTSIDE RECORDS SUMMARY | 2024-03-29 11:08 | XMS_ITS | Encounter Summary ---
Author Organization [facility] [place] [address] Care Team Providers Care Military Communications Specialist Name Role Phone Lolly Oliveira MD Primary Care Provider [phone] Encounter Details Date Type Department Care Team (Latest Contact Info) Description 07/17/2013 8:40 AM EDT - 07/17/2013 11:59 PM EDT Hospital Encounter XRay at [address] [place] [address] CLIN[address], [facility] Discharge Disposition: Home Social [...] AM EST Hospital Encounter Non-Invasive [place] [address] Arrived documented as of this encounter Visit Diagnoses Not on filedocumented in this encounter Care Teams Military Communications Specialist Relationship Specialty Start Date End Date Lolly Oliveira MD [address] [place] [address] PCP - General 07/17/13 documented as of this encounter
--- OUTSIDE RECORDS SUMMARY | 2024-03-29 11:08 | XMS_ITS | Encounter Summary ---
[place] [address] Care Team Providers Care Cro Name Role Phone Lolly Oliveira MD Primary Care Provider [phone] Encounter Details Date Type Department Care Team (Late st Contact Info) Description 04/09/2022 Refill Dermatology at [address] [address] Nora Meredith, SALES TEACHER Social History Tobacco Use Types Packs/Day Years [...] [facility] Hospital Encounter Non-[place] [address] Arrived documented as of this encounter Visit Diagnoses Not on filedocumented in this encounter Care Teams Cro Relationship Specialty Start Date End Date Lolly Oliveira MD [address] [place] [address] PCP - General 07/17/13 documented as of this encounter
--- OUTSIDE RECORDS SUMMARY | 2024-03-29 11:08 | XMS_ITS | Encounter Summary ---
Author Organization [facility] [place] [address] Care Team Providers Care Bioinformatics Associate Name Role Phone Lolly Oliveira MD Primary Care Provider [phone] Encounter Details Date Type Department Care Team (Latest Contact Info) Description 07/26/2013 9:44 AM EDT - 07/26/2013 11:59 PM EDT Hospital [place] [address] CLINIC, Lolly So MD [address] [place], [place] [id number] Mammographic microcalcification Discharge Disposition: Home Social History [...] AM EST Hospital Encounter Non-[place] [address] Arrived documented as of this encounter Procedures [...] are present on specimen digital X-ray. A [employer]-Stereo 13 Cylinder marker clip was placed. Cranio-caudal [...] mLs documented in this encounter Care Teams Bioinformatics Associate Relationship Specialty Start Date End Date Lolly Oliveira MD [address] [place] [address] PCP - General 07/17/13 documented as of this encounter
--- OUTSIDE RECORDS SUMMARY | 2024-03-29 11:08 | XMS_ITS | Encounter Summary ---
Author Organization [facility] [place] [address] Care Team Providers Care Converter Skimmer Name Role Phone Lolly Oliveira MD Primary Care Provider [phone] Reason for Visit * Reason Comments Follow-up Encounter Details Date Type Department Care Team (Late st Contact Info) Description 06/06/2021 8:45 AM EDT Office Visit Dermatology at [address] [address] Clay Ramírez MD [address] [facility] [place] [address] Psoriasis, guttate Social History Tobacco Use Types [...] AM EST Hospital Encounter Non-[place] [address] Arrived documented as of this encounter Visit Diagnoses Diagnosis Psoriasis, guttate Other psoriasis documented in this encounter Care Teams Converter Skimmer Relationship Specialty Start Date End Date Lolly Oliveira MD [address] [place] [address] PCP - General 07/17/13 documented as of this encounter
--- OUTSIDE RECORDS SUMMARY | 2024-03-29 11:08 | XMS_ITS | Encounter Summary ---
[place] [address] Care Team Providers Care Press Cutter Name Role Phone Lolly Oliveira MD Primary Care Provider [phone] Encounter Details Date Type Department Care Team [...] EST Hospital Encounter Non-Invasive [place] [address] Arrived documented as of this encounter Visit Diagnoses Not on filedocumented in this encounter Care Teams Press Cutter Relationship Specialty Start Date End Date Lolly Oliveira MD [address] [place] [address] PCP - General 07/17/13 documented as of this encounter
--- OUTSIDE RECORDS SUMMARY | 2024-03-29 11:08 | XMS_ITS | Encounter Summary ---
Author Organization [facility] [place] [address] Care Team Providers Care Information Assurance Officer Name Role Phone Lolly Oliveira MD Primary Care Provider [phone] Reason for Referral * Diagnostic Test (Routine) - Closed Specialty Diagnoses / Procedures Referred By Contac t Referred To Contact Radiology Diagnoses Left bundle branch block Nonischemic cardiomyopathy Procedures MRI Cardiac Morphology Function With Flow Velocity Quantification [facility] Contrast MRI Cardiac Morphology Function wwo Contrast Lalit Mcmaohn MD [facility] [place] [address] [place] [address] Referral ID Status Reason Start Date Expiration Date V isits Requested Visits Authorized [id number] Closed Specialty Service Requested 05/06/2022 11/07/2023 2 1 Reason for Visit * Diagnostic Test (Routine) - Closed Specialty Diagnoses / Procedures Referred By Contac t Referred To Contact Radiology Diagnoses Left bundle branch block Nonischemic cardiomyopathy Procedures MRI Cardiac Morphology Function With Flow Velocity Quantification o Contrast MRI Cardiac Morphology Function wwo Contrast Lalit Mcmahon MD [facility] [place] [address] [place] [address] Referral ID Status Reason Start Date Expiration Date V isits Requested Visits Authorized [id number] Closed Specialty Service Requested 05/06/2022 11/07/2023 2 1 Encounter Details Date Type Department Care Team (Latest Contact Info) Description 07/14/2022 9:08 AM EDT Hospital Encounter MRI at [facility] [place] [phone] Lalit Mcmahon MD [facility] [place] [address] Left bundle branch block; Nonischemic cardiomyopathy Discharge [...] with spacer fluticasone propionate (Flonase) 50 mcg/actuation [place], Suspension [...] 71 y.o. : 1950 [address] [facility] [address] Female [phone] (home) No relevant phone numbers on file. Lolly Oliveira MD None Allergies Allergen Reactions ??? Sulfa (Sulfonamide Antibiotics) Date/Time of call: July 07, 2022/11:03 AM/ PREVIOUS MRI SCAN? HEIGHT: WEIGHT: SCHEDULED SCAN: MRI CARDIAC MORPHOLOGY FUNCTION WITH FLOW VELOCITY QUANTIFICATION WWO CONTRAST [[id number]] Order Questions Answers Where will study be performed? [facility] Radiology [120] SUBJECTIVE: Very Claustrophobic CAN [...] ( [place] ) You must have a lumber driver present when you check in. This patient has been informed that they require a lumber driver to drive them home after this procedure. In the absence of a lumber driver, IR will not be able to sedate for your scan. Pt verbalized understanding of these instructions during the pre-procedure education via phone. Yes Name of lumber driver: Daughter Phone number: PRIOR SCAN DATE/S SEDATION TYPE SUCCESSFUL 07/14/22 MRI Cardiac Morphology Function with Flow Velocity Quantification wwo Contrast Ativan 1mg x 1 dose Pass Revised 08/03/17 documented in this encounter Plan of Treatment Upcoming Encounters Date Type Department Care Team (Late st Contact Info) Description 04/15/2024 10:00 AM [facility] Hospital Encounter Non-Invasive [place] [address] Arrived documented as of this encounter Procedures [...] have questions please contact the health rn critical care that requested your imaging first. [...] who have questions please contactthe health rn critical care that requested your imaging first. [...] mg documented in this encounter Care Teams Information Assurance Officer Relationship Specialty Start Date End Date Lolly Oliveira MD [address] [place] [address] PCP - General 07/17/13 documented as of this encounter
--- OUTSIDE RECORDS SUMMARY | 2024-03-29 11:08 | XMS_ITS | Encounter Summary ---
Author Organization [facility] [place] [address] Care Team Providers Care Rubber Chemist Name Role Phone Lolly Oliveira MD Primary Care Provider [phone] Reason for Referral * Diagnostic Test (Routine) - Closed Specialty Diagnoses / Procedures Referred By Contac t Referred To Contact Radiology Diagnoses Left bundle branch block Nonischemic cardiomyopathy Procedures MRI Cardiac Morphology Function With Flow Velocity Quantification wwo Contrast MRI Cardiac Morphology Function wwo Contrast Lalit Mcmahon MD [facility] [place] [address] [place] [address] Referral ID Status Reason Start Date Expiration Date V isits Requested Visits Authorized [id number] Closed Specialty Service Requested 05/06/2022 11/07/2023 2 1 Encounter Details Date Type Department Care Team (Late st Contact Info) Description 05/06/2022 Orders Only Cardiology at [address] [address] Lalit Mcmahon MD [facility] [place] [address] Left bundle branch block; Nonischemic cardiomyopathy Social [...] Hospital Encounter Non-[place] [address] Arrived documented as of this encounter Results [...] who have questions please contact the health vocational childcare teacher that requested your imaging first. ? [...] patients who have questions please contactthe health vocational childcare teacher that requested your imaging first. Lalit Mcmahon MD IMG MRI ORDERABLES documented in this encounter Visit Diagnoses Diagnosis Left bundle branch block Other left bundle branch block Nonischemic cardiomyopathy Other primary cardiomyopathies Left bundle branch block Other left bundle branch block Nonischemic cardiomyopathy Other primary cardiomyopathies documented in this encounter Care Teams Rubber Chemist Relationship Specialty Start Date End Date Lolly Oliveira MD [address] [place] [address] PCP - General 07/17/13 documented as of this encounter
--- OUTSIDE RECORDS SUMMARY | 2024-03-29 11:08 | XMS_ITS | Encounter Summary ---
Author Organization Count Includes [facility] [place] [address] Care Team Providers Care Railroad Crane Operator Name Role Phone Lolly Oliveira MD Primary Care Provider [phone] Encounter Details Date Type Department Care Team (Late st Contact Info) Description 07/26/2013 Orders [place] [address] Eleno Christian MD Social History [...] [facility] Hospital Encounter Non-[place] [address] Arrived documented as of this encounter Visit Diagnoses Not on filedocumented in this encounter Care Teams Railroad Crane Operator Relationship Specialty Start Date End Date Lolly Oliveira MD [address] [place] [address] PCP - General 07/17/13 documented as of this encounter
--- OUTSIDE RECORDS SUMMARY | 2024-03-29 11:08 | XMS_ITS | Encounter Summary ---
Author Organization [place] [address] Care Team Providers Care Volleyball Assembler Name Role Phone Unavailable Primary Care Provider Unavailabl e Encounter Details Date Type Department Care Team (Late st Contact Info) Description 07/14/2013 [place] [address] Eleno Christian MD Social History Tobacco Use [...] AM EST Hospital Encounter Non-[place] [address] Arrived documented as of this encounter Visit Diagnoses Not on filedocumented in this encounter
--- OUTSIDE RECORDS SUMMARY | 2024-03-29 11:08 | XMS_ITS | Encounter Summary ---
Author Organization [facility] [place] [address] Care Team Providers Care Splicer Machine Operator Name Role Phone Lolly Oliveira MD Primary Care Provider [phone] Reason for Referral * Consultation (Routine) - Closed Specialty Diagnoses / Procedures Referred By Contact Referred To Contact Electrophysiology / Cardiology Diagnoses Left bundle branch block Cardiomyopathy, unspecified type AT MINIMUM PT NEEDS CONSIDERATION FOR DEFIBRILLATOR, ALSO CANDIDATE FOR RESYNCHRONIZATION THERAPY HER QRS IS >0.16 Lolly Oliveira MD [address] [place] [address] [facility] Cardiology [address] [place] [phone] Referral ID Status Reason Start Date Expiration Date V isits Requested Visits Authorized [id number] Closed Consult, Test & Treat PCP Updated and/or Approved 04/30/2022 04/30/2023 6 6 Encounter Details Date Type Department Care Team (Latest Contact Info) Description 04/30/2022 Transcribe Orders eDH Incoming Referrals [phone] Lolly Oliveira MD [address] [place], [place] [phone] Left bundle branch block; Cardiomyopathy, unspecified type [...] AM EST Hospital Encounter Non-Invasive [place] [address] Arrived Scheduled Referrals Name Type Priority Associated Diagnoses Orde r Schedule Referral to Cardiology Outpatient Referral Routine Left bundle branch block Cardiomyopathy, Unspecified Type Ordered: 04/30/2022 documented as of this encounter Visit Diagnoses Diagnosis Left bundle branch block Other left bundle branch block Cardiomyopathy, unspecified type documented in this encounter Care Teams Splicer Machine Operator Relationship Specialty Start Date End Date Lolly Oliveira MD [address] [place] [address] PCP - General 07/17/13 documented as of this encounter
--- OUTSIDE RECORDS SUMMARY | 2024-03-29 11:08 | XMS_ITS | Encounter Summary ---
Author Organization [facility] [place] [address] Care Team Providers Care Free Lance Artist Name Role Phone Lolly Oliveira MD Primary Care Provider [phone] Reason for Visit * Reason Onset Date Comments Pre Procedure Call 07/01/2022 Encounter Details Date Type Department Care Team (Late st Contact Info) Description 07/01/2022 Telephone Cardiology at [address] [address] Rosenda Sutton RN Pre Procedure Call Social History Tobacco Use Types Packs/Day Years Used Date Smoking Tobacco: Never Sex and Gender Information Value Date Recorded Sex Assigned at Not on file Gender Identity Not on file Sexual Orientation Not on file documented as of this encounter Miscellaneous Notes * Telephone Encounter - Rosenda Sutton RN - 07/01/2022 9:30 AM EDTSummary: Pre Procedure Call: RESEARCH AND DEVELOPMENT MANAGER implant EP HOSPITAL UNIT COORDINATOR COORDINATION CHECKLIST Patient Name: Luna Mott Patient Performing Cotton Picker Operator: Lalit Mcmahon Referring Provider: Lolly Oliveira Date of Procedure: 07/23/22 Arrival Time/ Case Time: 12:00 pm / 1:00 pm Check In Location: [facility] Administrator Desk 4W Date Patient was Called: 07/01/22 Procedure: RESEARCH AND DEVELOPMENT MANAGER Company: [employer] Type: RESEARCH AND DEVELOPMENT MANAGER-D Laterality: LEFT Orders: Yes Lab Orders: [...] overnight , understands that they will need patient transportation driver on day of discharge Notified pt that Goff catheter may be placed on day of procedure depending on type & duration of case. documented in this encounter Plan of Treatment Upcoming Encounters Date Type Department Care Team (Late st Contact Info) Description 04/15/2024 10:00 AM [facility] Hospital Encounter Non-Invasive [place] [address] Arrived documented as of this encounter Visit Diagnoses Not on filedocumented in this encounter Care Teams Free Lance Artist Relationship Specialty Start Date End Date Lolly Oliveira MD [address] [place] [address] PCP - General 07/17/13 documented as of this encounter
--- OUTSIDE RECORDS SUMMARY | 2024-03-29 11:08 | XMS_ITS | Encounter Summary ---
Author Organization [facility] [place] [address] Care Team Providers Care Quality Assurance Project Manager Name Role Phone Unavailable Primary Care Provider Unavailabl e Encounter Details Date Type Department Care Team (Late st Contact Info) Description 07/14/2013 External Results XRay at [address] [place] [address] Provider, Scanning Social History Tobacco Use Types [...] AM EST Hospital Encounter Non-Invasive Cardiology Lab [facility] [place] [address] Arrived documented as of this encounter Procedures [...]
--- OUTSIDE RECORDS SUMMARY | 2024-03-29 11:08 | XMS_ITS | Encounter Summary ---
Author Organization [facility] [place] [address] Care Team Providers Care Test Fixture Designer Name Role Phone Unavailable Primary Care Provider Unavailabl e Encounter Details Date Type Department Care Team (Late st Contact Info) Description 07/04/2012 [place] [address] Eleno Christian MD Social History Tobacco Use [...] AM EST Hospital Encounter Non-In[place] [address] Arrived documented as of this encounter Procedures [...]
--- OUTSIDE RECORDS SUMMARY | 2024-03-29 11:08 | XMS_ITS | Encounter Summary ---
[place] [address] Care Team Providers Care Tube Mill Operator Name Role Phone Lolly Oliveira MD Primary Care Provider [phone] Encounter Details Date Type Department Care Team [...] filedocumented in this encounter Care Teams Tube Mill Operator Relationship Specialty Start Date End Date Lolly Oliveira MD [address] [place] [address] PCP - General 07/17/13 documented as of this encounter
--- OUTSIDE RECORDS SUMMARY | 2024-03-29 11:08 | XMS_ITS | Encounter Summary ---
Author Organization [facility] [place] [address] Care Team Providers Care Clerical Office Name Role Phone Lolly Oliveira MD Primary Care Provider [phone] Encounter Details Date Type Department Care Team (Latest Contact Info) Description 07/18/2013 [place] [address] Alia Fraire MD Mammographic microcalcification (Primary Dx) [...] [facility]ALTH SERVICES Hospital Encounter Non-[place] [address] Arrived documented as of this encounter Results [...] are present on specimen digital X-ray. A [employer]-Stereo 13 Cylinder marker clip was placed. [...] calcifications are present on specimendigital X-ray. A [employer]-Stereo 13 Cylinder marker clip was placed. [...] does not layer and, therefore, are not bilingual inside sales representative of milk of calcium. Again, [...] does not layer and, therefore, are not bilingual inside sales representative of milk of calcium. Again, these have an amorphous andpunctate appearance and remain indeterminate. Stereotactic guided biopsy isrecommended. Alia Fraire MD IMG MAMMO ORDERABLES documented in this encounter Visit Diagnoses Diagnosis Mammographic microcalcification- Primary Mammographic microcalcification Mammographic microcalcification Mammographic microcalcification Mammographic microcalcification documented in this encounter Care Teams Clerical Office Relationship Specialty Start Date End Date oLlly Oliveira MD [address] [place] [address] PCP - General 07/17/13 documented as of this encounter
--- OUTSIDE RECORDS SUMMARY | 2024-03-29 11:08 | XMS_ITS | Encounter Summary ---
Author Organization [facility] [place] [address] Care Team Providers Care Ship Engineer Name Role Phone Lolly Oliveira MD Primary Care Provider [phone] Encounter Details Date Type Department Care Team (Late Contact Info) Description 01/14/2022 Telephone Dermatology at [address] [address] Nora Meredith LPN Social History [...] AM EST Hospital Encounter [place] [address] Arrived documented as of this encounter Visit Diagnoses Not on filedocumented in this encounter Care Teams Ship Engineer Relationship Specialty Start Date End Date Lolly Oliveira MD [address] [place] [address] PCP - General 07/17/13 documented as of this encounter
--- OUTSIDE RECORDS SUMMARY | 2024-03-29 11:08 | XMS_ITS | Encounter Summary ---
Author Organization [facility]ly [facility] [place] [address] Care Team Providers Care Hotel Recreational Facilities Manager Name Role Phone Lolly Oliveira MD Primary Care Provider [phone] Reason for Visit * Reason Comments Follow-up Encounter Details Date Type Department Care Team (Late st Contact Info) Description 05/21/2022 8:00 AM EDT Office Visit Dermatology at [address] [phone] Clay Ramírez MD [address] [facility], [place] [address] Psoriasis, guttate Social History Tobacco Use Types [...] [facility] Hospital Encounter Non-[place] [address] Arrived documented as of this encounter Visit Diagnoses Diagnosis Psoriasis, guttate Other psoriasis documented in this encounter Care Teams Hotel Recreational Facilities Manager Relationship Specialty Start Date End Date Lolly Oliveira MD [address] [place] [address] PCP - General 07/17/13 documented as of this encounter
--- OUTSIDE RECORDS SUMMARY | 2024-03-29 11:08 | XMS_ITS | Encounter Summary ---
Author Organization [facility] [address] Care Team Providers Care Perishable Fruit Inspector Name Role Phone Lolly Oliveira MD Primary Care Provider [phone] Reason for Visit * Reason Comments Skin Check Encounter Details Date Type Department Care Team (Late st Contact Info) Description 11/23/2014 10:00 AM EDT Office Visit Dermatology at [address] [phone] Clay Ramírez MD [address] [facility] [place] [address] Dermatofibroma; Nevus; Solar lentigo Discharge Disposition: Home [...] [facility] Hospital Encounter Non-Invasive [place] [address] Arrived documented as of this encounter Visit Diagnoses Diagnosis Dermatofibroma Benign neoplasm of skin, site unspecified Nevus Benign neoplasm of skin, site unspecified Solar lentigo Other dyschromia documented in this encounter Care Teams Perishable Fruit Inspector Relationship Specialty Start Date End Date Lolly Oliveira MD [address] [place] [address] PCP - General 07/17/13 documented as of this encounter
--- OUTSIDE RECORDS SUMMARY | 2024-03-29 11:08 | XMS_ITS | Encounter Summary ---
Author Organization [facility] [place] [address] Care Team Providers Care Rack Maker Name Role Phone Lolly Oliveira MD Primary Care Provider Encounter Details Date Type Department Care Team (Late st Contact Info) Description 04/01/2021 3:30 PM EST Office Visit Dermatology at [address] [phone] Clay Ramírez MD [address] [facility] [address], [place] [address] Psoriasis, guttate Social History Tobacco Use Types [...] AM EST Hospital Encounter Non-[place] [address] Arrived documented as of this encounter Visit Diagnoses Diagnosis Psoriasis, guttate Other psoriasis documented in this encounter Care Teams Rack Maker Relationship Specialty Start Date End Date Lolly Oliveira MD [address] [place] [address] PCP - General 07/17/13 documented as of this encounter
--- OUTSIDE RECORDS SUMMARY | 2024-03-29 11:08 | XMS_ITS | Encounter Summary ---
Author Organization [facility] [place] [address] Care Team Providers Care Apparel Designer Name Role Phone Lolly Oliveira MD Primary Care Provider [phone] Reason for Visit * Reason Comments Follow-up Encounter Details Date Type Department Care Team (Late st Contact Info) Description 07/02/2022 8:00 AM EDT Office Visit Dermatology at [address] [phone] Clay Ramírez MD [address] [facility] [place] [address] Psoriasis, guttate Social History Tobacco Use Types [...] [facility] Hospital Encounter [place] [phone] Arrived documented as of this encounter Visit Diagnoses Diagnosis Psoriasis, guttate Other psoriasis documented in this encounter Care Teams Apparel Designer Relationship Specialty Start Date End Date Lolly Oliveira MD [address] [place] [address] PCP - General 07/17/13 documented as of this encounter
--- OUTSIDE RECORDS SUMMARY | 2024-03-29 11:08 | XMS_ITS | Encounter Summary ---
Author [place] [address] Care Team Providers Care Installment Loan Collector Name Role Phone Lolly Oliveira MD [...] AM EST Hospital Encounter Non-Invasive [place] [address] Arrived documented as of this encounter Visit Diagnoses Not on filedocumented in this encounter Care Teams Installment Loan Collector Relationship Specialty Start Date End Date Lolly Oliveira MD [address] [place] [address] PCP - General 07/17/13 documented as of this encounter
--- OUTSIDE RECORDS SUMMARY | 2024-03-29 11:08 | XMS_ITS | Encounter Summary ---
[place] [address] Care Team Providers Care Regional Transfer Liaison Name Role Phone Lolly Oliveira MD Primary Care Provider [phone] Encounter Details Date Type Department Care Team (Latest Contact Info) Description 07/26/2013 9:45 AM EDT - 07/26/2013 11:59 PM EDT Hospital [place] [address] Mammographic microcalcification Social History Tobacco Use Types [...] AM EST Hospital Encounter Non-Invasive [place] [address] Arrived documented as of this encounter Procedures Procedure Name Priority Date/Time Associated Diagnosis Comments SURGICAL PATHOLOGY REPORT Routine 07/26/2013 12:12 PM EDT MAMMO SPECIMEN IMAGING DURING BIOPSY Routine 07/26/2013 11:58 AM EDT Mammographic microcalcification documented in this encounter Results * Surgical Pathology Report (07/26/2013 12:12 PM EDT) Final Diagnosis ? [facility] ? Provider: ?? ELENO CHRISTIAN ?? Pt. Name: ?? JING MOTT ? Acc #: ?[id number] ?Pt. ? Col Date: ?? 07/26/2013 ? [...] Partially fragmented, fibrofatty needle core biopsies. ? [facility] ? Provider: ?? ELENO CHRISTIAN ?? Pt. Name: ?? JING MOTT ? Acc #: ?[id number] ?Pt. ? Col Date: ?? 07/26/2013 ? [...] Performing Organization Address City/State/[facility] Co sc Phone Number [facility] [place] [address] * Mammo Specimen Imaging During Biopsy (07/26/2013 [...] microcalcification documented in this encounter Care Teams Regional Transfer Liaison Relationship Specialty Start Date End Date Lolly Oliveira MD [address] [place] [address] PCP - General 07/17/13 documented as of this encounter
--- OUTSIDE RECORDS SUMMARY | 2024-03-29 11:08 | XMS_ITS | Encounter Summary ---
Author Organization [facility] [place] [address] Care Team Providers Care Machine Brush Maker Name Role Phone Lolly Oliveira MD Primary Care Provider [phone] Encounter Details Date Type Department Care Team (Latest Contact Info) Description 07/20/2013 9:26 AM EDT - 07/20/2013 11:59 PM EDT Hospital [place] [phone] CLINIC, Lolly So MD [address] [place], [place] [phone] Mammographic microcalcification Discharge Disposition: Home Social History [...] AM EST Hospital Encounter Non[place] [address] Arrived documented as of this encounter Procedures [...] does not layer and, therefore, are not outbound call center representative of milk of calcium. Again, [...] does not layer and, therefore, are not outbound call center representative of milk of calcium. Again, these have an amorphous andpunctate appearance and remain indeterminate. Stereotactic guided biopsy isrecommended. Alia Fraire MD IMG MAMMO ORDERABLES documented in this encounter Visit Diagnoses Diagnosis Mammographic microcalcification documented in this encounter Care Teams Machine Brush Maker Relationship Specialty Start Date End Date Lolly Oliveira MD [address] [place] [address] PCP - General 07/17/13 documented as of this encounter
--- OUTSIDE RECORDS SUMMARY | 2024-03-29 11:08 | XMS_ITS | Encounter Summary ---
Author Organization [facility] [place] [address] Care Team Providers Care It Project Lead Name Role Phone Lolly Oliveira MD Primary Care Provider Encounter Details Date Type Department Care Team (Latest Contact Info) Description 07/26/2013 9:45 AM EDT - 07/26/2013 11:59 PM EDT Hospital En[place] [address] Mammographic microcalcification Social History Tobacco Use Types [...] Hospital Encounter Non-[place] [address] Arrived documented as of this encounter Procedures [...] microcalcification documented in this encounter Care Teams It Project Lead Relationship Specialty Start Date End Date Lolly Oliveira MD [address] [place] [address] PCP - General 07/17/13 documented as of this encounter
[2024-03-29 11:15] VITALS: BP 154/76; PULSE 69
--- OUTSIDE RECORDS SUMMARY | 2024-03-31 10:58 | XMS_ITS | Encounter Summary ---
Author Organization [facility] Address [address] [place] [address] Care Team Providers Care Scrap Metal Processing Worker Name Role Phone Lolly Oliveira MD Primary Care Provider [phone] Encounter Details Date Type Department Care Team (Late st Contact Info) Description 02/11/[address] [facility] Pathology & Laboratory Medicine - [address] [phone] Outr Resulting Lab, Provider Social History Tobacco [...] MICROBIOLOGY - GENER AL ORDERABLES Final Result [facility] [address] [place] [address] * COVID-19 TESTING (02/11/2021 8:00 EST) COVID-19 rt-PCR Result Negative Negative 02/12/2021 14:17 EST [facility] Comment: This test has [...] performed using the med SARS-CoV-2 assay ([employer] on the Med 6800 System Performing Lab Med [address] [facility] Lab 02/12/2021 14:17 EST [facility] Swab 02/11/2021 8:00 EST 02/11/2021 22:22 EST us Provider Outr Resulting Lab MICROBIOLOGY - GENER AL ORDERABLES Final Result [facility] [address] [place] [address] documented in this encounter Visit Diagnoses Not on filedocumented in this encounter Care Teams Scrap Metal Processing Worker Relationship Specialty Start Date End Date Lolly Oliveira MD [address] [place] [address] PCP - General 11/13/08 documented as of this encounter
--- OUTSIDE RECORDS SUMMARY | 2024-03-31 10:58 | XMS_ITS | Encounter Summary ---
Author Organization [facility] Address [address] [place] [address] Care Team Providers Care Engine Specialist Name Role Phone Lolly Oliveira MD Primary Care Provider [phone] Encounter Details Date Type Department Care Team (Late st Contact Info) Description 06/16/2012 Results Only [facility] Laboratory Services - [facility] ([facility] [address] [place], [place] [phone] Lolly Oliveira MD [address] [place], [place] [phone] Social History Tobacco Use Types Packs/Day Years [...] ? JING ALVARENGA ? Accession #: ? [id number] : ? 1950 (Age: 61) ??F ?Collect [...] ORDERABLES Final Resu lt [facility] [address] [place] [address] documented in this encounter Visit Diagnoses Not on filedocumented in this encounter Care Teams Engine Specialist Relationship Specialty Start Date End Date Lolly Oliveira MD [address] [place] [address] PCP - General 11/13/08 documented as of this encounter
--- OUTSIDE RECORDS SUMMARY | 2024-03-31 10:58 | XMS_ITS | Clinical Summary ---
Author Organization [facility] Address [address] [place] [address] Care Team Providers Care Sales Support Advisor Name Role Phone Lolly Oliveira MD Primary Care Provider [phone] Social History Tobacco Use Types Packs/Day Years [...] 08/10/2023 COVID-19 Vaccine (2023- season) 2023 Insurance [facility] MEDICARE Care Teams Sales Support Advisor Relationship Specialty Start Date End Date Berrian, Lolly, MD [address] [place] [address] PCP - General 11/13/08
--- OUTSIDE RECORDS SUMMARY | 2024-03-31 10:58 | XMS_ITS | Encounter Summary ---
Author Organization [facility] Address [address] [place] [address] Care Team Providers Care Plate Slitter And Inspector Name Role Phone Lolly Oliveira MD Primary Care Provider [phone] Encounter Details Date Type Department Care Team (Late st Contact Info) Description 05/27/2021 Lab Requisition [facility] Pathology & Laboratory Medicine - [address] [address] Iman Moran, DO [address] [place], [place] [phone] Encounter for other general examination Social History [...] explore management options, if applicable. 05/30/2021 13:31 [facility] Final Diagnosis A. COLON, POLYP AT 90 CM, BIOPSY/POLYPECTOM Y: - Tubular adenoma. 05/30/2021 13:31 [facility] Attestation By the signature below, the attending physician certifies that they have 1) personally conducted a gross and/or microscopic examination of the described specimen(s), and/or personally interpreted the results of laboratory testing of the described specimen(s), and 2) personally rendered or confirmed the above diagnosis. 05/30/2021 13:31 [facility] at 1331 Clinical History Severe diverticula and polypectomy x1 05/30/2021 13:31 [facility] Gross Description A. Received in formalin labelled with proper patient identification (initials J, K) and colon polyp x1 at 90 cm is a light pineda polypoid tissue measuring 0.2 x 0.2 x 0.2 cm. Submitted intact in A1. MICKEY CARLOS(ASCP) 05/27/2021 19:11 05/30/2021 13:31 [facility] Performing Lab [facility] 05/30/2021 13:31 [facility] Scanned Images 05/30/2021 13:31 [facility] Tissue ENTIRE COLON / Unknown 05/27/2021 11:23 EDT 05/27/2021 16:33 EDT us Iman Moran DO PATHOLOGY ORDERABLES Final Re sult [facility] [address] [place] [address] documented in this encounter Visit Diagnoses Diagnosis Encounter for other general examination documented in this encounter Care Teams Plate Slitter And Inspector Relationship Specialty Start Date End Date Lolly Oliveira MD [address] [place] [address] PCP - General 11/13/08 documented as of this encounter
--- OUTSIDE RECORDS SUMMARY | 2024-03-31 10:58 | XMS_ITS | Encounter Summary ---
Author Organization [facility] Address [address] [place] [address] Care Team Providers Care Acid Tender Name Role Phone Lolly Oliveira MD Primary Care Provider Encounter Details Date Type Department Care Team (Late st Contact Info) Description 03/21/2019 Lab Requisition [facility] Pathology & Laboratory Medicine - [address] [address] Unknown, Provider, Social History Tobacco Use Types [...] 911 pg/mL 03/22/2019 11:52 EST [facility] Blood VENOUS BLOOD / Unknown 03/16/2019 9:25 EST 03/21/2019 21:35 EST us Provider Unknown CHEMISTRY & BLOOD GAS ORDERA BLES Final Result [facility] [address] [place] [address] documented in this encounter Visit Diagnoses Not on filedocumented in this encounter Care Teams Acid Tender Relationship Specialty Start Date End Date Lolly Oliveira MD [address] [place] [address] PCP - General 11/13/08 documented as of this encounter
--- OUTSIDE RECORDS SUMMARY | 2024-03-31 10:58 | XMS_ITS | Encounter Summary ---
Author Organization [facility] Address [address] [place] [address] Care Team Providers Care Electric Motor Assembler Name Role Phone Lolly Oliveira MD Primary Care Provider [phone] Encounter Details Date Type Department Care Team (Late st Contact Info) Description 04/01/2005 Results Only [facility] conversion [address] [place] [address] Blair Dukes MD [address] [place] [phone] Social History Tobacco Use Types Packs/Day Years [...] ? JING ALVARENGA ? Accession #: ? [id number] ? : ? 1950 (Age: 54) ??F [...] ? Received in Hollande' s fixative labelled [place] and #1 ??terminal ileum bx is a single 0.3 x 0.2 x 0.2 cm tissue, submitted intact as (A). Received in [place]e' s fixative labelled [place] and #2 ??transverse colon bx is a single 0.2 x 0.2 x 0.2 cm tissue, submitted intact as (B). ??(Dr. Lechuga)/[facility] End of Report [facility] 04/01/2005 04/02/2005 15: 24 EST us Blair Dukes MD PATHOLOGY ORDERABLES Final Resul t [facility] [address] [place] [address] documented in this encounter Visit Diagnoses Not on filedocumented in this encounter Care Teams Electric Motor Assembler Relationship Specialty Start Date End Date Lolly Oliveira MD [address] [place] [address] PCP - General 11/13/08 documented as of this encounter
--- OUTSIDE RECORDS SUMMARY | 2024-03-31 10:58 | XMS_ITS | Encounter Summary ---
Author Organization [facility] Address [address] [place] [address] Care Team Providers Care Programming Development Project Manager Name Role Phone Lolly Oliveira MD Primary Care Provider [phone] Encounter Details Date Type Department Care Team (Late st Contact Info) Description 04/25/2009 Orders Only [facility] Laboratory Services - [facility] ([facility] [address] [place], [place] [phone] Lolly Oliveira MD [address] [place], [place] [phone] Social History Tobacco Use Types Packs/Day Years [...] ? JING ALVARENGA ? Accession #: ? [id number] ? : ? 1950 (Age: 58) ??F [...] ORDERABLES Final Resu lt Performing Organization Address [facility]/State/ZIP Co de Phone Number [facility] [address] [place] [address] documented in this encounter Visit Diagnoses Not on filedocumented in this encounter Care Teams Programming Development Project Manager Relationship Specialty Start Date End Date Lolly Oliveira MD [address] [place] [address] PCP - General 11/13/08 documented as of this encounter
--- OUTSIDE RECORDS SUMMARY | 2024-03-31 10:58 | XMS_ITS | Referral Summary ---
Author Organization [facility] Address [address] [place] [address] Care Team Providers Care Package Maker Name Role Phone Lolly Oliveira MD Primary Care Provider [phone] Social History Tobacco Use Types Packs/Day Years Used Date Smoking Tobacco: Never Assessed Comments Unknown Sex and Gender Information Value Date Recorded Sex Assigned at Not on file Legal Sex Female 18:31 EST Gender Identity Not on file Sexual Orientation Not on file Plan of Treatment Not on file Insurance [facility] MEDICARE Care Teams Package Maker Relationship Specialty Start Date End Date Lolly Oliveira MD [address] [place] [address] PCP - General 11/13/08
--- OUTSIDE RECORDS SUMMARY | 2024-03-31 10:58 | XMS_ITS | Encounter Summary ---
Author Organization [facility] Address [address] [place] [address] Care Team Providers Care Quality Assurance Assistant Name Role Phone Unavailable Primary Care Provider Unavailabl e Encounter Details Date Type Department Care Team (Late st Contact Info) Description 11/07/2008 Orders Only [facility] Laboratory Services - [facility] ([facility]) [address] [place] [address] Kenneth Parker MD [address] [place] [address] Social History Tobacco Use Types Packs/Day Years [...] ? JING ALVARENGA ? Accession #: ? [id number] ? : ? 1950 (Age: 58) ??F [...] ORDERABLES Final Resu lt [facility] [address] [place] [address] documented in this encounter Visit Diagnoses Not on filedocumented in this encounter
--- OUTSIDE RECORDS SUMMARY | 2024-03-31 10:58 | XMS_ITS | Encounter Summary ---
Author Organization [facility] Address [address] [place] [address] Care Team Providers Care Stone Lathe Operator Name Role Phone Lolly Oliveira MD Primary Care Provider [phone] Encounter Details Date Type Department Care Team (Late st Contact Info) Description 05/02/[address] [facility] conversion [address] [place] [address] Lolly Oliveira MD [address] [place], [place] [phone] Social History Tobacco Use Types Packs/Day Years [...] 68. [facility] Report Status Final [id number] [facility] 05/02/2004 9:32 EST 05/10/2004 9:32 EST us Lolly Oliveira MD MICROBIOLOGY - GENERAL ORDERABL ES Final Result [facility] [address] [place] [address] * CYTOPATHOLOGY (05/02/2004 0:00 EST) Pathology Report: CYTOPATHOLOGY REPORT Reports generated via electronic interface contain original data; however they are lacking the format of the original report. Caution should be taken when reading/interpreti ng unformatted reports. Name: ? JING ALVARENGA ? Accession #: ? [id number] : ? 1950 (Age: 53) ??F ?Collect [...] ORDERABLES Final Resu lt Performing Organization Address City/State/[facility] Co de Phone Number [facility] [address] [place] [address] documented in this encounter Visit Diagnoses Not on filedocumented in this encounter Care Teams Stone Lathe Operator Relationship Specialty Start Date End Date Lolly Oliveira MD [address] [place] [address] PCP - General 11/13/08 documented as of this encounter
--- OUTSIDE RECORDS SUMMARY | 2024-03-31 10:58 | XMS_ITS | Encounter Summary ---
Author Organization [facility] Address [address] [place] [address] Care Team Providers Care Outside Plant Technician Name Role Phone Lolly Oliveira MD Primary Care Provider [phone] Encounter Details Date Type Department Care Team (Late st Contact Info) Description 03/06/2003 Results Only [facility] [place] conversion [address] [place] [address] Lolly Oliveira MD [address] [place], [place] [phone] Social History Tobacco Use Types Packs/Day Years [...] ORDERABLES Final Resu lt [facility] [address] [place] [address] documented in this encounter Visit Diagnoses Not on filedocumented in this encounter Care Teams Outside Plant Technician Relationship Specialty Start Date End Date Lolly Oliveira MD [address] [place] [address] PCP - General 11/13/08 documented as of this encounter
--- OUTSIDE RECORDS SUMMARY | 2024-03-31 10:58 | XMS_ITS | Encounter Summary ---
Author Organization [facility] Address [address] [place] [address] Care Team Providers Care Financial Advocate Name Role Phone Lolly Oliveira MD Primary Care Provider [phone] Encounter Details Date Type Department Care Team (Late st Contact Info) Description 02/20/2020 Lab Requisition [facility] Pathology & Laboratory Medicine - [address] [id number] Outr Resulting Lab, Provider Social History Tobacco [...] in accordance with CLIA regulations, [employer] [place] [employer] (CAP) guidelines (May 25, 2019), and FDA guidance (May 06, 2019). This test is only for use under the Food and Drug Administration's Emergency Use Authorization. Swab ENTIRE NASOPHARYNX / Unknown 02/19/2020 16:30 EST 02/20/2020 16:09 EST us Provider Outr Resulting Lab MICROBIOLOGY - GENER AL ORDERABLES Final Result [facility] [place], [place] * COVID-19 TESTING (02/19/2020 16:30 EST) COVID-19 rt-PCR Result NEGATIVE Negative 02/22/2020 23:41 EST [facility] Comment: 2019-novel Coronavirus (2019-nCoV) not detected [...] in accordance with CLIA regulations, [employer] of [place] [employer] (CAP) guidelines (May 25, 2019), and FDA guidance (May 06, 2019). This test is only for use under the Food and Drug Administration's Emergency Use Authorization. Performing Lab [facility] 02/22/2020 23:41 EST [facility] Swab 02/19/2020 16:3 0 EST 02/20/2020 16:09 EST us Provider Outr Resulting Lab MICROBIOLOGY - GENER AL ORDERABLES Final Result [facility] [address] [place] [address] [facility] [place], [place] documented in this encounter Visit Diagnoses Not on filedocumented in this encounter Care Teams Financial Advocate Relationship Specialty Start Date End Date Lolly Oliveira MD [address] [place] [address] PCP - General 11/13/08 documented as of this encounter
--- OUTSIDE RECORDS SUMMARY | 2024-03-31 10:58 | XMS_ITS | Encounter Summary ---
Author Organization [facility] Address [address] [place] [address] Care Team Providers Care Rust Proofer Name Role Phone Lolly Oliveira MD Primary Care Provider [phone] Encounter Details Date Type Department Care Team (Late st Contact Info) Description 04/17/2005 Results Only [facility] conversion [address] [place] [address] Lolly Oliveira MD [address] [place], [place] [id number] Social History Tobacco Use Types Packs/Day Years [...] ? JING ALVARENGA ? Accession #: ? [id number] : ? 1950 (Age: 54) ??F ?Collect Date: ? 04/17/2005 Location: ? [facility] ? Receive Date: ? 04/21/2005 Provider: ?LOLLY OLIVEIRA MD Copy to: ? Specimen/Source: ?ThinPrep Pap Test, Cervix/Endocervix, processed on [employer] ThinPrep Imaging System, with manual evaluation Last [...] Final Resu lt [facility] [address] [place] [address] documented in this encounter Visit Diagnoses Not on filedocumented in this encounter Care Teams Rust Proofer Relationship Specialty Start Date End Date Lolly Oliveira MD [address] [place] [address] PCP - General 11/13/08 documented as of this encounter
--- OUTSIDE RECORDS SUMMARY | 2024-03-31 10:58 | XMS_ITS | Encounter Summary ---
Author Organization [facility] Address [address] [place] [address] Care Team Providers Care Manufactured Buildings Repairer Name Role Phone Lolly Oliveira MD Primary Care Provider [phone] Encounter Details Date Type Department Care Team (Late st Contact Info) Description 04/12/2007 Results Only [facility] conversion [address] [place] [address] Lolly Oliveira MD [address] [place], [place] [id number] Social History Tobacco Use Types Packs/Day Years [...] ? JING ALVARENGA ? Accession #: ? [id number] : ? 1950 (Age: 56) ??F ?Collect Date: ? 04/12/2007 Location: ? [facility] ? Receive Date: ? 04/13/2007 Provider: ?LOLLY OLIVEIRA MD Copy to: ? Specimen/Source: ?ThinPrep Pap Test, Cervix/Endocervix, processed on [employer] ThinPrep Imaging System, with manual evaluation Last [...] ORDERABLES Final Resu lt [facility] [address] [place] [address] documented in this encounter Visit Diagnoses Not on filedocumented in this encounter Care Teams Manufactured Buildings Repairer Relationship Specialty Start Date End Date Lolly Oliveira MD [address] [place] [address] PCP - General 11/13/08 documented as of this encounter
--- OUTSIDE RECORDS SUMMARY | 2024-03-31 10:58 | XMS_ITS | Encounter Summary ---
Author Organization [facility] Address [address] [place] [address] Care Team Providers Care Shake Splitter Name Role Phone Lolly Oliveira MD Primary Care Provider [phone] Encounter Details Date Type Department Care Team (Late st Contact Info) Description 11/13/2020 Lab Requisition [facility] Pathology & Laboratory Medicine - [address] [address] Outr Resulting Lab, Provider Social History Tobacco [...] MICROBIOLOGY - GENER AL ORDERABLES Final Result [facility] [address] [place] [address] * COVID-19 TESTING (11/13/2020 7:30 EDT) COVID-19 rt-PCR Result Negative Negative 11/14/2020 11:46 EDT [facility] Comment: This test [...] performed using the med SARS-CoV-2 assay ([employer] on the Med 6800 System Performing Lab Med [address] [facility] Lab 11/14/2020 11:46 EDT [facility] Swab 11/13/2020 7:30 EDT 11/13/2020 20:57 EDT us Provider Outr Resulting Lab MICROBIOLOGY - GENER AL ORDERABLES Final Result Performing Organization Address [facility] Co de Phone Number [facility] [address] [place] [address] documented in this encounter Visit Diagnoses Not on filedocumented in this encounter Care Teams Shake Splitter Relationship Specialty Start Date End Date Lolly Oliveira MD [address] [place] [address] PCP - General 11/13/08 documented as of this encounter
--- OUTSIDE RECORDS SUMMARY | 2024-03-31 10:59 | XMS_ITS | Encounter Summary ---
Author Organization [facility] [place] [address] Care Team Providers Care Sanitation Superintendent Name Role Phone Lolly Oliveira MD Primary Care Provider [phone] Reason for Visit * Reason Onset Date Comments Other 07/24/2022 Implanted Cardia c Device Teaching/Education Encounter Details Date Type Department Care Team (Late st Contact Info) Description 07/24/2022 Notes Only Cardiology at [address] [phone] Letha Arroyo Other (Implanted Cardiac Device Teaching/Education) [...] Device Clinic - Post Implant Teaching Note Luan Mott : 1950 AGE: 71 y.o. Education: Reviewed the following topics with patient and 2 daughters. - Implant ID card - Implant manual - Electromagnetic Compatibility (EMC) - Remote monitoring Answered all questions and provided implant folder containing written materials of the above topics. Patient demonstrated understanding and was instructed to call the Cardiac Device Clinic at [phone] with any questions. Plan: Post op check: [...] [facility] Hospital Encounter Non[place] [address] Arrived documented as of this encounter Visit Diagnoses Not on filedocumented in this encounter Care Teams Sanitation Superintendent Relationship Specialty Start Date End Date Lolly Oliveira MD [address] [place] [address] PCP - General 07/17/13 documented as of this encounter
--- OUTSIDE RECORDS SUMMARY | 2024-03-31 10:59 | XMS_ITS | Encounter Summary ---
Author Organization Count Includes [facility] [place] [address] Care Team Providers Care Senior Loan Processor Name Role Phone Lolly Oliveira MD Primary Care Provider Encounter Details Date Type Department Care Team (Latest Contact Info) Description 04/21/2023 10:00 AM EST - 04/21/2023 11:59 PM EST Hospital Encounter Non-[place]vasive [place] [phone] Discharge Disposition: Home Social History Tobacco Use [...] with spacer fluticasone propionate (Flonase) 50 mcg/actuation [place], Suspension 1 spray by Each Nare route [...] AM EST Hospital Encounter Non-Invasive [place] [address] Arrived documented as of this [...] filedocumented in this encounter Care Teams Senior Loan Processor Relationship Specialty Start Date End Date Lolly Oliveira MD [address] [place] [address] PCP - General 07/17/13 documented as of this encounter
--- OUTSIDE RECORDS SUMMARY | 2024-03-31 10:59 | XMS_ITS | Encounter Summary ---
Author Organization [facility] Address [facility] [place] [address] Care Team Providers Care Reflow Operator Name Role Phone Lolly Oliveria MD Primary Care Provider [phone] Encounter Details Date Type Department Care Team (Late st Contact Info) Description 07/16/2022 Telephone Cardiology at [address] [phone] Lalit Mcmahon MD [facility] [place] [address] Social History Tobacco Use Types Packs/Day Years [...] her nonischemic cardiomyopathy. She is scheduled for RECORDAK OPERATOR-D implantation next week and looks forward to the procedure. We will see each other next week. Lalit Mcmahon MD [facility] Cardiac Electrophysiology 07/16/2022 8:52 AM documented in this encounter Plan of Treatment Upcoming Encounters Date Type Department Care Team (Late st Contact Info) Description 04/15/2024 10:00 AM EST Hospital Encounter Non[place] [address] Arrived documented as of this encounter Visit Diagnoses Not on filedocumented in this encounter Care Teams Reflow Operator Relationship Specialty Start Date End Date Lolly Oliveira MD [address] [place] [address] PCP - General 07/17/13 documented as of this encounter
--- OUTSIDE RECORDS SUMMARY | 2024-03-31 10:59 | XMS_ITS | Encounter Summary ---
Author Organization [facility] [place] [address] Care Team Providers Care Chicken Sexer Name Role Phone Lolly Oliveira MD Primary Care Provider [phone] Reason for Referral * Diagnostic Test (Routine) - Closed Specialty Diagnoses / Procedures Referred By Contac t Referred To Contact Radiology Diagnoses Left bundle branch block Nonischemic cardiomyopathy Procedures MRI Cardiac Morphology Function With Flow Velocity Quantification wwo Contrast MRI Cardiac Morphology Function wwo Contrast Lalit Mcmahon MD [facility] [place] [address] [place] [address] Referral ID Status Reason Start Date Expiration Date V isits Requested Visits Authorized [id number] Closed Specialty Service Requested 05/06/2022 11/07/2023 2 1 Encounter Details Date Type Department Care Team (Late st Contact Info) Description 05/06/2022 Orders Only Cardiology at [address] [phone] Lalit Mcmahon MD [facility] [place] [address] Left bundle branch block; Nonischemic cardiomyopathy Social [...] AM EST Hospital Encounter Non-Invasive [place] [address] Arrived documented as of this encounter Results [...] have questions please contact the health rn urgent care that requested your imaging first. ? [...] who have questions please contactthe health rn urgent care that requested your imaging first. Lalit Mcmahon MD IMG MRI ORDERABLES documented in this encounter Visit Diagnoses Diagnosis Left bundle branch block Other left bundle branch block Nonischemic cardiomyopathy Other primary cardiomyopathies Left bundle branch block Other left bundle branch block Nonischemic cardiomyopathy Other primary cardiomyopathies documented in this encounter Care Teams Chicken Sexer Relationship Specialty Start Date End Date Lolly Oliveira MD [address] [place] [address] PCP - General 07/17/13 documented as of this encounter
--- OUTSIDE RECORDS SUMMARY | 2024-03-31 10:59 | XMS_ITS | Encounter Summary ---
Author Organization [facility] [place] [address] Care Team Providers Care Employment Office Clerk Name Role Phone Lolly Oliveira MD Primary Care Provider [phone] Encounter Details Date Type Department Care Team (Late st Contact Info) Description 11/16/2022 Telephone Cardiology at [address] [phone] Luna Rousseau, RN Social History Tobacco Use [...] BP today was 118/57 at [facility] at [facility]. Pt is going twice a [...] [facility] Hospital Encounter Non-[place] [phone] Arrived documented as of this encounter Visit Diagnoses Not on filedocumented in this encounter Care Teams Employment Office Clerk Relationship Specialty Start Date End Date Lolly Oliveira MD [address] [place] [address] PCP - General 07/17/13 documented as of this encounter
--- OUTSIDE RECORDS SUMMARY | 2024-03-31 10:59 | XMS_ITS | Encounter Summary ---
Author Organization [facility] [place] [address] Care Team Providers Care Aerophysicist Name Role Phone Lolly Oliveira MD Primary Care Provider [phone] Reason for Visit * Reason Onset Date Comments Pre Procedure Call 07/01/2022 Encounter Details Date Type Department Care Team (Late st Contact Info) Description 07/01/2022 Telephone Cardiology at [address] [phone] Rosenda Sutton RN Pre Procedure Call Social History Tobacco Use Types Packs/Day Years Used Date Smoking Tobacco: Never Sex and Gender Information Value Date Recorded Sex Assigned at Not on file Gender Identity Not on file Sexual Orientation Not on file documented as of this encounter Miscellaneous Notes * Telephone Encounter - Rosenda Sutton RN - 07/01/2022 9:30 AM EDTSummary: Pre Procedure Call: CURTAIN CUTTER HAND implant EP DIP TANKER COORDINATION CHECKLIST Patient Name: Luna Mott Patient Performing Manager [employer]: Lalit Mcmahon Referring Provider: Lolly Oliveira Date of Procedure: 07/23/22 Arrival Time/ Case Time: 12:00 pm / 1:00 pm Check In Location: Underwriting Operations Manager Desk 4W Date Patient was Called: 07/01/22 Procedure: CURTAIN CUTTER HAND Company: [employer] Type: CURTAIN CUTTER HAND-D Laterality: LEFT Orders: Yes Lab Orders: Yes [...] overnight , understands that they will need team cdl driver on day of discharge Notified pt that Goff catheter may be placed on day of procedure depending on type & duration of case. documented in this encounter Plan of Treatment Upcoming Encounters Date Type Department Care Team (Late st Contact Info) Description 04/15/2024 10:00 AM [facility] Hospital Encounter Non[place] [address] Arrived documented as of this encounter Visit Diagnoses Not on filedocumented in this encounter Care Teams Aerophysicist Relationship Specialty Start Date End Date Lolly Oliveira MD [address] [place] [address] PCP - General 07/17/13 documented as of this encounter
--- OUTSIDE RECORDS SUMMARY | 2024-03-31 10:59 | XMS_ITS | Encounter Summary ---
Author Organization [place] [address] Care Team Providers Care Hot Mill Worker Name Role Phone Lolly Oliveira MD Primary Care Provider [phone] Reason for Referral * Diagnostic Test (Routine) - Closed Specialty Diagnoses / Procedures Referred By Contac t Referred To Contact Radiology Diagnoses Left bundle branch block Nonischemic cardiomyopathy Procedures MRI Cardiac Morphology Function With Flow Velocity Quantification [facility] Contrast MRI Cardiac Morphology Function wwo Contrast Lalit Mcmahon MD [facility] [place] [address] [place] [address] Referral ID Status Reason Start Date Expiration Date V isits Requested Visits Authorized [id number] Closed Specialty Service Requested 05/06/2022 11/07/2023 2 1 Reason for Visit * Diagnostic Test (Routine) - Closed Specialty Diagnoses / Procedures Referred By Contac t Referred To Contact Radiology Diagnoses Left bundle branch block Nonischemic cardiomyopathy Procedures MRI Cardiac Morphology Function With Flow Velocity Quantification o Contrast MRI Cardiac Morphology Function wwo Contrast Lalit Mcmahon MD [facility] [place] [address] [place] [address] Referral ID Status Reason Start Date Expiration Date V isits Requested Visits Authorized [id number] Closed Specialty Service Requested 05/06/2022 11/07/2023 2 1 Encounter Details Date Type Department Care Team (Latest Contact Info) Description 07/14/2022 9:08 AM EDT Hospital Encounter MRI at [facility] [place] [phone] Lalit Mcmahon MD [facility] [address] [place] [address] Left bundle branch block; Nonischemic cardiomyopathy Discharge [...] with spacer fluticasone propionate (Flonase) 50 mcg/actuation [place], Suspension 1 spray by Each Nare route [...] Mott AGE: 71 y.o. : 1950 [address] [facility] [address] Female [phone] (home) No relevant phone numbers on file. Lolly Oliveira MD None Allergies Allergen Reactions ??? Sulfa (Sulfonamide Antibiotics) Date/Time of call: July 07, 2022/11:03 AM/ PREVIOUS MRI SCAN? HEIGHT: WEIGHT: SCHEDULED SCAN: MRI CARDIAC MORPHOLOGY FUNCTION WITH FLOW VELOCITY QUANTIFICATION WWO CONTRAST [[id number]] Order Questions Answers Where will study be performed? [facility] Radiology [120] SUBJECTIVE: Very Claustrophobic CAN [...] ( [place] ) You must have a emergency vehicle driver present when you check in. This patient has been informed that they require a emergency vehicle driver to drive them home after this procedure. In the absence of a emergency vehicle driver, IR will not be able to sedate for your scan. Pt verbalized understanding of these instructions during the pre-procedure education via phone. Yes Name of emergency vehicle driver: Daughter Phone number: PRIOR SCAN DATE/S SEDATION TYPE SUCCESSFUL 07/14/22 MRI Cardiac Morphology Function with Flow Velocity Quantification wwo Contrast Ativan 1mg x 1 dose Pass Revised 08/03/17 documented in this encounter Plan of Treatment Upcoming Encounters Date Type Department Care Team (Late st Contact Info) Description 04/15/2024 10:[address] [facility] Hospital Encounter [place] [address] Arrived documented as of this encounter Procedures [...] questions please contact the health director of managed care that requested your imaging first. [...] have questions please contactthe health director of managed care that requested your imaging first. Lalit [...] mg documented in this encounter Care Teams Hot Mill Worker Relationship Specialty Start Date End Date Lolly Oliveira MD [address] [place] [address] PCP - General 07/17/13 documented as of this encounter
--- OUTSIDE RECORDS SUMMARY | 2024-03-31 10:59 | XMS_ITS | Encounter Summary ---
Author Organization [facility] [place] [address] Care Team Providers Care Furnace Worker Name Role Phone Lolly Oliveira MD Primary Care Provider [phone] Reason for Visit * Reason Onset Date Comments Post Procedure Call 07/30/2022 Encounter Details Date Type Department Care Team (Late st Contact Info) Description 07/30/2022 Notes Only Cardiology at [address] [phone] Rosenda Sutton, RN Post Procedure Call Social [...] 07/30/2022 9:59 AM EDTSummary: Post Procedure Call: KEYBOARD INSTRUMENT TUNER implant EP RN Post-Procedure Note: Date of [...] Note: Follow-up Recommendations for Providers: - s/p KEYBOARD INSTRUMENT TUNER-D implant - post implant QRS 130 ms [...] [facility] Non[place] [address] Arrived documented as of this encounter Visit Diagnoses Not on filedocumented in this encounter Care Teams Furnace Worker Relationship Specialty Start Date End Date Lolly Oliveira MD [address] [place] [address] PCP - General 07/17/13 documented as of this encounter
--- OUTSIDE RECORDS SUMMARY | 2024-03-31 10:59 | XMS_ITS | Encounter Summary ---
Author Organization [facility] [place] [address] Care Team Providers Care Cap Sewer Name Role Phone Lolly Oliveira MD Primary Care Provider [phone] Encounter Details Date Type Department Care Team (Late st Contact Info) Description 05/18/2023 Telephone Dermatology at [address] [phone] Nora Meredith LPN Social History [...] st Contact Info) Description 04/15/2024 10:00 AM [facility] Hospital Encounter Non-[place] [phone] Arrived documented as of this encounter Visit Diagnoses Not on filedocumented in this encounter Care Teams Cap Sewer Relationship Specialty Start Date End Date Lolly Oliveira MD [address] [place] [address] PCP - General 07/17/13 documented as of this encounter
--- OUTSIDE RECORDS SUMMARY | 2024-03-31 10:59 | XMS_ITS | Encounter Summary ---
Author Organization [facility] [place] [address] Care Team Providers Care Manager Installation Name Role Phone Lolly Oliveira MD Primary Care Provider [phone] Encounter Details Date Type Department Care Team (Late st Contact Info) Description 10/09/2021 Telephone Dermatology at [address] [address] Nora Meredith LPN Social [...] filedocumented in this encounter Care Teams Manager Installation Relationship Specialty Start Date End Date Lolly Oliveira MD [address] [place] [address] PCP - General 07/17/13 documented as of this encounter
--- OUTSIDE RECORDS SUMMARY | 2024-03-31 10:59 | XMS_ITS | Encounter Summary ---
Author Organization [facility] Address [facility] [place] [address] Care Team Providers Care Body Care Manager Name Role Phone Lolly Oliveira MD Primary Care Provider [phone] Reason for Visit * Auth/Cert (Routine) Specialty Diagnoses / Procedures Referred By Contac t Referred To Contact Diagnoses Left bundle-branch block, unspecified Other cardiomyopathies Left bundle branch block [I44.7]Nonischemic cardiomyopathy [I42.8] Procedures PRG CATH PLMT LEFT HEART CATH & ARTS W/INJ & ANGIO IMG S&I ELECTROPHYSIOLOGY PROCEDURE Lalit Mcmahon MD [facility] [place] [address] [facility] Referral ID Status Reason Start Date Expiration Date Visits Re quested Visits Authorized [id number] 1 1 Encounter Details Date Type Department Care Team (Late st Contact Info) Description 07/23/2022 1:08 PM EDT Anesthesia [place] [address] Monae Gonzalez MD [facility] [place] [address] Maria Elena Snyder CRNA [facility] [place] [address] Anesthesia Record Procedure Summary Procedure Name Responsible [...] 1307; median cubital vein (antecubital fossa), right; lhsw-ewr-uxisfm catheter system; Anatomical Landmarks; 20 gauge; 07/24/22; [...] 1343; metacarpal vein (top of hand), left; csxd-uyn-gquabk catheter system; Anatomical Landmarks; US Not Used; [...] [facility] A-LAB ROOM 3 / [facility] EP LABS Anesthesia Start: 1308 Anesthesia Stop: 1633 Procedure: ELECTROPHYSIOLOGY PROCEDURE (Left) Diagnosis: Left bundle branch block Nonischemic cardiomyopathy (Left bundle branch block [I44.7]Nonischemic cardiomyopathy [I42.8]) Providers: Lalit Mcmahon MD Responsible Provider: Monae Gonzalez MD Anesthesia Type: general ASA Status: 4 All Anesthesia Providers: Anesthesiologist: Monae Gonzalez MD; Dominique Sen MD TRIMMING OPERATOR: Maria Elena Snyder CRNA Vitals Value [...] and Nonischemic CM (EF 15-20%)who presents for DEBUBBLIZER-D. No prior anesthetic records. Pt states that [...] daughter/son and patient who. Plan discussed with TRIMMING OPERATOR. Anesthesia Screening documented in this encounter Plan of Treatment Upcoming Encounters Date Type Department Care Team (Late st Contact Info) Description 04/15/2024 10:00 AM [facility] Hospital Encounter [place] [address] Arrived documented as of this [...] mg documented in this encounter Care Teams Body Care Manager Relationship Specialty Start Date End Date Lolly Oliveira MD [address] [place] [address] PCP - General 07/17/13 documented as of this encounter
--- OUTSIDE RECORDS SUMMARY | 2024-03-31 10:59 | XMS_ITS | Encounter Summary ---
Author Organization [facility] [place] [address] Care Team Providers Care Station Examiner Name Role Phone Lolly Oliveira MD Primary Care Provider [phone] Reason for Visit * Reason Comments Follow-up 8 weeks UVB treatmen t twice weekly Encounter Details Date Type Department Care Team (Late st Contact Info) Description 07/19/2023 11:00 AM EDT Office Visit Dermatology at [address] [phone] Clay Ramírez MD [address], [place] A [place]ERMATOLOGY [place], [place] [id number] Psoriasis Social History Tobacco Use Types Packs/Day [...] st Contact Info) Description 04/15/2024 10:00 AM [facility] Hospital Encounter Non-[place] [address] Arrived documented as of this encounter Visit Diagnoses Diagnosis Psoriasis Other psoriasis documented in this encounter Care Teams Station Examiner Relationship Specialty Start Date End Date Lolly Oliveira MD [address] [place] [address] PCP - General 07/17/13 documented as of this encounter
--- OUTSIDE RECORDS SUMMARY | 2024-03-31 10:59 | XMS_ITS | Encounter Summary ---
Author Organization [facility] [place] [address] Care Team Providers Care Hydro Plant Technician Name Role Phone Lolly Oliveira MD Primary Care Provider [phone] Encounter Details Date Type Department Care Team (Late st Contact Info) Description 03/15/2023 Telephone Cardiology at [address] [phone] Saranya Ma Social History Tobacco Use Types Packs/Day Years Used Date Smoking Tobacco: Never Alcohol Use Standard Drinks/Week Comments Not Currently 0 (1 standard drink = 0.6 oz pur e alcohol) [facility] Inpatient Questions Answer Date Recorded Does [...] her to have an echo done at [facility] prior to her appt withhim there on 05/12/23. Message sent to Dr. Mcmahon asking him to put order in if he would like her to have this done. Saranya Ma Sr. Clinical Procedure [place]/Wooden Fence Erector documented in this encounter Plan of Treatment Upcoming Encounters Date Type Department Care Team (Late st Contact Info) Description 04/15/2024 10:00 AM EST Hospital Encounter Non-Invasive [place] [address] Arrived documented as of this encounter Visit Diagnoses Not on filedocumented in this encounter Care Teams Hydro Plant Technician Relationship Specialty Start Date End Date Lolly Oliveira MD [address] [place] [address] PCP - General 07/17/13 documented as of this encounter
--- OUTSIDE RECORDS SUMMARY | 2024-03-31 10:59 | XMS_ITS | Encounter Summary ---
[place] [address] Care Team Providers Care Efficiency Analyst Name Role Phone Lolly Oliveira MD Primary Care Provider [phone] Encounter Details Date Type Department Care Team [...] AM EST Hospital Encounter Non-Invasive [place] [address] Arrived documented as of this encounter Visit Diagnoses Not on filedocumented in this encounter Care Teams Efficiency Analyst Relationship Specialty Start Date End Date Lolly Oliveira MD [address] [place] [address] PCP - General 07/17/13 documented as of this encounter
--- OUTSIDE RECORDS SUMMARY | 2024-03-31 10:59 | XMS_ITS | Encounter Summary ---
Author Organization [facility] [place] [address] Care Team Providers Care E Learning Designer Name Role Phone Lolly Oliveira MD Primary Care Provider [phone] Encounter Details Date Type Department Care Team [...] AM EST Hospital Encounter Non-Invasive [place] [address] Arrived documented as of this encounter Visit Diagnoses Not on filedocumented in this encounter Care Teams E Learning Designer Relationship Specialty Start Date End Date Lolly Oliveira MD [address] [place] [address] PCP - General 07/17/13 documented as of this encounter
--- OUTSIDE RECORDS SUMMARY | 2024-03-31 10:59 | XMS_ITS | Encounter Summary ---
[place] [address] Care Team Providers Care Oracle Fusion Consultant Name Role Phone Lolly Oliveira MD Primary Care Provider [phone] Encounter Details Date Type Department Care Team [...] AM EST Hospital Encounter Non[place] [address] Arrived documented as of this encounter Visit Diagnoses Not on filedocumented in this encounter Care Teams Oracle Fusion Consultant Relationship Specialty Start Date End Date Lolly Oliveira MD [address] [place] [address] PCP - General 07/17/13 documented as of this encounter
--- OUTSIDE RECORDS SUMMARY | 2024-03-31 10:59 | XMS_ITS | Encounter Summary ---
Author Organization [facility] [place] [address] Care Team Providers Care Lens Gauger Name Role Phone Lolly Oliveira MD Primary Care Provider [phone] Encounter Details Date Type Department Care Team (Latest Contact Info) Description 01/21/2023 10:00 AM EST - 01/21/2023 11:59 PM EST Hospital Encounter Non-Invasive [place] [phone] Discharge Disposition: Home Social History Tobacco Use [...] spacer fluticasone propionate (Flonase) 50 mcg/actuation [place], Suspension 1 spray by Each Nare route [...] AM EST Hospital Encounter Non-Invasive [place] [address] Arrived documented as of this [...] on filedocumented in this encounter Care Teams Lens Gauger Relationship Specialty Start Date End Date Lolly Oliveira MD [address] [place] [address] PCP - General 07/17/13 documented as of this encounter
--- OUTSIDE RECORDS SUMMARY | 2024-03-31 10:59 | XMS_ITS | Encounter Summary ---
Author Organization [facility] Address [address] [place] [address] Care Team Providers Care Biological Aide Name Role Phone Lolly Oliveira MD Primary Care Provider [phone] Encounter Details Date Type Department Care Team (Late st Contact Info) Description 05/29/2002 Results Only [facility] [place] conversion [address] [place] [address] Silvia Diehl, [address] [place] [phone] Social History Tobacco Use Types Packs/Day Years [...] when reading/interpreti ng unformatted reports. Name: ? LLYE, JING ? Accession #: ? [id number] : ? 1950 (Age: 51) ??F ?Collect Date: ? 05/29/2002 Location: ? [facility] ? Receive Date: ? 05/31/2002 Provider: ?SILVIA DIEHL MATHEMATICS EDUCATION PROFESSOR Copy to: ? Specimen/Source: ?ThinPrep Pap Test, [...] [facility] 05/29/2002 05/31/2002 us Silvia Diehl MATHEMATICS EDUCATION PROFESSOR PATHOLOGY ORDERABLES Final R esult [facility] [address] [place] [address] documented in this encounter Visit Diagnoses Not on filedocumented in this encounter Care Teams Biological Aide Relationship Specialty Start Date End Date Lolly Oliveira MD [address] [place] [address] PCP - General 11/13/08 documented as of this encounter
--- OUTSIDE RECORDS SUMMARY | 2024-03-31 10:59 | XMS_ITS | Encounter Summary ---
Author Organization [facility] [place] [address] Care Team Providers Care Feed Inspection Supervisor Name Role Phone Lolly Oliveira MD Primary Care Provider [phone] Encounter Details Date Type Department Care Team (Late st Contact Info) Description 03/17/2023 Telephone Cardiology at [address] [phone] Saranya Ma Social History Tobacco Use Types [...] 9:43 AM EST Echo order faxed to [facility] at [phone]. No Prior auth needed. Ref #:[id number]. Saranya Ma Sr. Clinical Procedure [place]/Knockdown Man documented in this encounter Plan of Treatment Upcoming Encounters Date Type Department Care Team (Late st Contact Info) Description 04/15/2024 10:00 AM [facility] Hospital Encounter Non-[place] [address] Arrived documented as of this encounter Visit Diagnoses Not on filedocumented in this encounter Care Teams Feed Inspection Supervisor Relationship Specialty Start Date End Date Lolly Oliveira MD [address] [place] [address] PCP - General 07/17/13 documented as of this encounter
--- OUTSIDE RECORDS SUMMARY | 2024-03-31 10:59 | XMS_ITS | Encounter Summary ---
Author Organization [facility] [place] [address] Care Team Providers Care Animal Care Attendant Name Role Phone Lolly Oliveira MD Primary Care Provider [phone] Encounter Details Date Type Department Care Team (Latest Contact Info) Description 07/20/2023 10:00 AM EDT - 07/20/2023 11:59 PM EDT Hospital Encounter Non[place] [address] Discharge Disposition: Home Social History Tobacco Use [...] with spacer fluticasone propionate (Flonase) 50 mcg/actuation [place], Suspension 1 spray by Each Nare route daily as needed. documented as of this encounter Plan of Treatment Upcoming Encounters Date Type Department Care Team (Late st Contact Info) Description 04/15/2024 10:00 AM EST Hospital Encounter Non[place] [address] Arrived documented as of this encounter Procedures [...] filedocumented in this encounter Care Teams Animal Care Attendant Relationship Specialty Start Date End Date Lolly Oliveira MD [address] [place] [address] PCP - General 07/17/13 documented as of this encounter
--- OUTSIDE RECORDS SUMMARY | 2024-03-31 10:59 | XMS_ITS | Encounter Summary ---
[place] [address] Care Team Providers Care Real Time Trader Name Role Phone Lolly Oliveira MD Primary Care Provider [phone] Encounter Details Date Type Department Care Team [...] AM EST Hospital Encounter Non-[place]vasive [place] [address] Arrived documented as of this encounter Visit Diagnoses Not on filedocumented in this encounter Care Teams Real Time Trader Relationship Specialty Start Date End Date Lolly Oliveira MD [address] [place] [address] PCP - General 07/17/13 documented as of this encounter
--- OUTSIDE RECORDS SUMMARY | 2024-03-31 10:59 | XMS_ITS | Encounter Summary ---
Author Organization [facility] [place] [address] Care Team Providers Care Self Rising Flour Mixer Name Role Phone Lolly Oliveira MD Primary Care Provider [phone] Encounter Details Date Type Department Care Team (Latest Contact Info) Description 01/16/2024 10:00 AM EST - 01/16/2024 11:59 PM EST Hospital Encounter Non-[place] [address] Discharge Disposition: Home Social History Tobacco Use [...] EST Hospital Encounter Non-[place] [address] Arrived documented as of this encounter Procedures [...] on filedocumented in this encounter Care Teams Self Rising Flour Mixer Relationship Specialty Start Date End Date Lolly Oliveira MD [address] [place] [address] PCP - General 07/17/13 documented as of this encounter
--- OUTSIDE RECORDS SUMMARY | 2024-03-31 10:59 | XMS_ITS | Encounter Summary ---
Author Organization [facility] [place] [address] Care Team Providers Care Hunter Name Role Phone Lolly Oliveira MD Primary Care Provider [phone] Reason for Visit * Reason Comments Psoriasis Encounter Details Date Type Department Care Team (Late st Contact Info) Description 04/09/2022 1:45 PM EST Office Visit Dermatology at [address] [address] Clay Ramírez MD [address] [facility], [place] [address] Psoriasis, guttate Social History Tobacco Use Types [...] AM EST Hospital Encounter Non-[place] [address] Arrived documented as of this encounter Visit Diagnoses Diagnosis Psoriasis, guttate Other psoriasis documented in this encounter Care Teams Hunter Relationship Specialty Start Date End Date Lolly Oliveira MD [address] [place] [address] PCP - General 07/17/13 documented as of this encounter
--- OUTSIDE RECORDS SUMMARY | 2024-03-31 10:59 | XMS_ITS | Encounter Summary ---
Author Organization [facility] Address [facility] [place] [address] Care Team Providers Care Director Business Development Name Role Phone Lolly Oliveira MD Primary Care Provider Encounter Details Date Type Department Care Team (Late st Contact Info) Description 01/29/2023 Notes Only Cardiology at [address] [address] Merle Lin PA [facility] [place] [place] [address] Social History Tobacco Use Types Packs/Day Years [...] pdf document Date of transmission: 01/29/2023 Device lpn: BSI Device type: TELEGRAPHIC TYPEWRITER OPERATOR-D Presenting rhythm: /RVP/LVP AP 21% Right GLUCOSE AND SYRUP WEIGHER 100% Left GLUCOSE AND SYRUP WEIGHER: 100% Battery: 10.5 years Heart[employer] Index rising in setting of increasing S3 intensity, increasing respiratory rate, increasing night heart rate, and increasing mean heart rate. MICKEY Villa 01/29/2023 9:06 AM documented in this encounter Plan of Treatment Upcoming Encounters Date Type Department Care Team (Late st Contact Info) Description 04/15/2024 10:00 AM EST Hospital Encounter Non-Invasive [place] [address] Arrived documented as of this encounter Visit Diagnoses Not on filedocumented in this encounter Care Teams Director Business Development Relationship Specialty Start Date End Date Lolly Oliveira MD [address] [place] [address] PCP - General 07/17/13 documented as of this encounter
--- OUTSIDE RECORDS SUMMARY | 2024-03-31 10:59 | XMS_ITS | Encounter Summary ---
Author Organization [facility] Address [facility] [place] [address] Care Team Providers Care Teacher Tutor Name Role Phone Lolly Oliveira MD Primary Care Provider Encounter Details Date Type Department Care Team (Late st Contact Info) Description 03/15/2023 Orders Only Cardiology at [address] [address] Lalit Mcmahon MD [facility] [place] [address] Nonischemic cardiomyopathy; Biventricular ICD (implantable cardioverter-defibrill ator) [...] AM EST Hospital Encounter Non[place] [address] Arrived documented as of this encounter Visit Diagnoses Diagnosis Nonischemic cardiomyopathy Other primary cardiomyopathies Biventricular ICD (implantable cardioverter-defibrillator) in place documented in this encounter Care Teams Teacher Tutor Relationship Specialty Start Date End Date Lolly Oliveira MD [address] [place] [address] PCP - General 07/17/13 documented as of this encounter
--- OUTSIDE RECORDS SUMMARY | 2024-03-31 10:59 | XMS_ITS | Encounter Summary ---
Author Organization [facility] Address [facility] [place] [address] Care Team Providers Care Rack Worker Name Role Phone Lolly Oliveira MD Primary Care Provider [phone] Encounter Details Date Type Department Care Team (Late st Contact Info) Description 05/03/2023 Telephone Cardiology at [address] [phone] Lalit Mcmahon MD [facility] [place] [address] Social History Tobacco Use Types Packs/Day Years [...] AM EST Hospital Encounter Non-[place] [address] Arrived documented as of this encounter Visit Diagnoses Not on filedocumented in this encounter Care Teams Rack Worker Relationship Specialty Start Date End Date Lolly Oliveira MD [address] [place] [address] PCP - General 07/17/13 documented as of this encounter
--- OUTSIDE RECORDS SUMMARY | 2024-03-31 10:59 | XMS_ITS | Encounter Summary ---
Author Organization [facility] [address] Care Team Providers Care Food Editor Name Role Phone Lolly Oliveira MD Primary Care Provider [phone] Reason for Referral * Consultation (Routine) - Closed Specialty Diagnoses / Procedures Referred By Contact Referred To Contact Electrophysiology / Cardiology Diagnoses Left bundle branch block Cardiomyopathy, unspecified type AT MINIMUM PT NEEDS CONSIDERATION FOR DEFIBRILLATOR, ALSO CANDIDATE FOR RESYNCHRONIZATION THERAPY HER QRS IS >0.16 Lolly Oliveira MD [address] [place] [address] [facility] Cardiology [address] [place] [phone] Referral ID Status Reason Start Date Expiration Date V isits Requested Visits Authorized [id number] Closed Consult, Test & Treat PCP Updated and/or Approved 04/30/2022 04/30/2023 6 6 Encounter Details Date Type Department Care Team (Latest Contact Info) Description 04/30/2022 Transcribe Orders eDH Incoming Referrals [phone] Lolly Oliveira MD [address] [place], [place] [id number] Left bundle branch block; Cardiomyopathy, unspecified type [...] AM EST Hospital Encounter Non-[place] [address] Arrived Scheduled Referrals Name Type Priority Associated Diagnoses Orde r Schedule Referral to Cardiology Outpatient Referral Routine Left bundle branch block Cardiomyopathy, Unspecified Type Ordered: 04/30/2022 documented as of this encounter Visit Diagnoses Diagnosis Left bundle branch block Other left bundle branch block Cardiomyopathy, unspecified type documented in this encounter Care Teams Food Editor Relationship Specialty Start Date End Date Lolly Oliveira MD [address] [place] [address] PCP - General 07/17/13 documented as of this encounter
--- OUTSIDE RECORDS SUMMARY | 2024-03-31 10:59 | XMS_ITS | Encounter Summary ---
Author Organization [facility] [place] [address] Care Team Providers Care Kiln Car Unloader Name Role Phone Lolly Oliveira MD Primary Care Provider [phone] Encounter Details Date Type Department Care Team (Late Contact Info) Description 01/14/2022 Telephone Dermatology at [address] [address] Nora Meredith LPN Social [...] AM EST Hospital Encounter Non-Invasive [place] [address] Arrived documented as of this encounter Visit Diagnoses Not on filedocumented in this encounter Care Teams Kiln Car Unloader Relationship Specialty Start Date End Date Lolly Oliveira MD [address] [place] [address] PCP - General 07/17/13 documented as of this encounter
--- OUTSIDE RECORDS SUMMARY | 2024-03-31 10:59 | XMS_ITS | Encounter Summary ---
Author Organization [place] [address] Care Team Providers Care Outside Sales Professional Name Role Phone Lolly Oliveira MD Primary Care Provider [phone] Reason for Visit * Auth/Cert (Routine) Specialty Diagnoses / Procedures Referred By Contac t Referred To Contact Diagnoses Left bundle-branch block, unspecified Other cardiomyopathies Left bundle branch block [I44.7]Nonischemic cardiomyopathy [I42.8] Procedures PRG CATH PLMT LEFT HEART CATH & ARTS W/INJ & ANGIO IMG S&I ELECTROPHYSIOLOGY PROCEDURE Lalit Mcmahon MD [facility] [place] [address] [facility] Referral ID Status Reason Start Date Expiration Date Visits Re quested Visits Authorized [id number] 1 1 Encounter Details Date Type Department Care Team (Late st Contact Info) Description 07/23/2022 1:00 PM EDT - 07/23/2022 5:30 PM EDT Surgery [place] [address] Lalit Mcmahon MD [facility] [place] [address] ELECTROPHYSIOLOGY PROCEDURE Social History Tobacco Use Types [...] Luna Mott Patient Age: 71 y.o. Language: Libyan Race: White Ethnicity: Not nor Admit date: 07/23/2022 Discharge date and time: 07/24/22 Attending Physician: Lalit Mcmahon MD Discharge Physician: Lalit Mcmahon MD Follow-up Recommendations for Providers: - s/p HEALTH THERAPIST-D implant - post implant QRS 130 ms [...] Nevus ??? Solar lentigo Operations/Major Procedures: 07/23/22: [facility] HEALTH THERAPIST-D implant History of Presentation: 71 y.o. female with a history of HFrEF, LBBB, QRS >150, NYHA II who is POD#1 of HEALTH THERAPIST-D implant ([employer]). Hospital Course: Elective admission for HEALTH THERAPIST-D implant Admitted post-implant for pain management, telemetry [...] (heart failure with reduced ejection fraction) [I50.20] HEALTH THERAPIST-D implant Admission Condition: good Indication for Admission: [...] g Refills: 3 fluticasone propionate 50 mcg/actuation [place], Suspension Commonly known as: Flonase 1 spray [...] incision. Make sure to use a clothing busheler (such as a towel) in between the [...] F. The office scheduling phone number is [phone]. ARM MOVEMENT RESTRICTIONS POST-IMPLANT - Do not [...] please call the Cardiac ElectrophysiologyTriage Nurse at [phone], option 3. General Instructions None Discharge References/Attachments [...] incision. Make sure to use a clothing busheler (such as a towel) in between the [...] F. The office scheduling phone number is [phone]. ARM MOVEMENT RESTRICTIONS POST-IMPLANT - Do not [...] please call the Cardiac ElectrophysiologyTriage Nurse at [phone], option 3. documented in this encounter Medications [...] with spacer fluticasone propionate (Flonase) 50 mcg/actuation [place], Suspension 1 spray by Each Nare [...] Cardiac Electrophysiology Post-Implant Device Interrogation Luna Mott [id number] 07/24/2022 History: Luna Mott is a 71 y.o. female with a history of HFrEF, LBBB, QRS >150, NYHA II who is POD#1 of HEALTH THERAPIST-D implant ([employer]). Overall feels well this morning. Ready [...] WOB Neuro- A&Ox3 Device Interrogation: Data ?? Tire Recapping Machine Operator Model # Serial # Generator [employer] [id number] Atrial Lead [employer] [id number] RV Lead [employer] 0672 [id number] LV Lead [employer] [id number] ?? Diagnostics Pacing Mode: DDD 60-130 Underlying Rhythm: [place] Atrial Episodes: None Ventricular Episodes: None FINAL PROGRAMMING: Pacing: Mode Lower rate (ppm) Upper rate (ppm) ?? DDD 60 130 VF: Rate (bpm) #Antitachycardia pacing First shock energy (J) ?? 200 Quick convert 41 VT: 170 Monitor only Monitor only ? Battery and Leads Impedances (ohms) Sensing (mV) Thresholds HV RA RV LV RA RV LV RA RV LV 73 392 138 2302 (LVa) 7.7 13.1 >25 0.4V @ 0.4 ms 0.4V @ 0.4 ms 0.5 V @ 1.0 ms POD#1 CXR: All leads in nominal positioning Impression: 71 y.o. female who is s/p HEALTH THERAPIST-D implant for LBBB, NYHA II, HFrEF. - [...] [facility] Fadi Nunez MD 07/24/2022 Pager: [phone] I met with the patient today and [...] agreement. ? Dr. Lalit Mcmahon, electrophysiology attending ([id number]) * Zaria Wright RN - 07/23/2022 8:28 [...] HF, QRS > 150 ms presents for HEALTH THERAPIST-D placement. ROS: Denies recent fevers or chills [...] ringers infusion 1,000 mL Intravenous Continuous Monae Gonazlez MD ??? sodium chloride 0.9 % (flush) (BD PosiFlush Normal Saline 0.9) flush 5 mL 5 mL Intravenous [id number] ramos MD ??? sodium chloride 0.9 % [...] HF, QRS > 150 ms presents for HEALTH THERAPIST-D placement. Backup would be LBBAP lead. Antibiotics: cefazolin Rationales for, intended benefits and potential risk of planned procedures reviewed. The patient indicated understanding and agreement with the plan. Informed consent signed. Procedure checklist completed. Fadi Nunez MD Cardiac Electrophysiology Fellow [facility] Pager [phone] 07/23/2022 I met with the patient today [...] agreement. ? Dr. Lalit Mcmahon, electrophysiology attending ([id number]) documented in this encounter Miscellaneous Notes * Brief Op Note - Lalit Mcmahon MD - 07/23/2022 4:04 PM EDT Brief Operative Note Patient Name: Luna Mott : [id number] MR#: [id number] Case Date: 07/23/2022 Surgeon: Surgeon(s) and Role: [...] EST Hospital Encounter Non-Invasive Cardiology [place] [address] Arrived Scheduled Orders Name Type Priority Associated Diagnoses Orde r Schedule EKG 12 Lead ECG Routine Cardiac resynchronization therapy defibrillator (HEALTH THERAPIST-D) in place One Time for 1 Occurrences [...] (Bezet) 522 ms MUSE SYSTEM Calculated R [place] 78 degrees MUSE SYSTEM Calculated T [place] -71 degrees MUSE SYSTEM INTERPRETATION AV dual-paced [...] Kwame Vargas MD, [facility] ([phone]), at 07/24/2022 6:43 AM Narrative 07/24/2022 6:43 [...] care teacher that requested your imaging first. Electronically signed by: Kwame Vargas MD, [facility]([phone]), at 07/24/2022 6:43 AM Lalit Mcmahon MD IMG DX ORDERABLES * ELECTROPHYSIOLOGY PROCEDURE (07/23/2022 1:11 PM EDT) Anatomical Region Laterality Modality Other Narrative 07/23/2022 4:24 PM EDT Table formatting from the original result was not included. BIVENTRICULAR ICD IMPLANTATION Auto Inspector: Lalit Mcmahon MD Fellow: Fadi Nunez MD [...] lateral branch of the CS in the [place] view. This branch was cannulated with a [...] the entire procedure. LEAD AND GENERATOR DATA: Tire Recapping Machine Operator Model # Serial # Generator [employer] [id number] Atrial Lead [employer] [id number] RV Lead [employer] 0672 [id number] LV Lead [employer] [id number] PACE/SENSE DATA: Sensed wave (mV) Threshold (V) [...] (cGycm2) 300 CONCLUSIONS: Successful implantation of a [employer] biventricular ICD for primary prevention and treatment of symptoms related to congestive heart failure. Follow up in EP clinic in 1-2 months. Procedures performed: new ICD system ( cpt 98045-R7); implant LV lead at time of ICD insertion (cpt 34334) I have read, edited and approve of this report: Lalit Mcmahon MD [facility] Cardiac Electrophysiology 07/23/2022 4:22 PM Procedure Note Lalit Mcmahon MD - 07/23/2022 BIVENTRICULAR ICD IMPLANTATION Auto Inspector: Lalit Mcmahon MD Fellow: Fadi Nunez MD [...] appropriate lateralbranch of the CS in the [place] view. This branch was cannulated with a [...] in the entireprocedure. LEAD AND GENERATOR DATA: Tire Recapping Machine Operator Model # Serial # Generator [employer] [id number] Atrial Lead [employer] 7841 [id number] RV Lead [employer] 0672 403649 LV Lead [employer] [id number] PACE/SENSE DATA: Sensed wave (mV) Threshold (V) [...] (cGycm2) 300 CONCLUSIONS: Successful implantation of a [employer] biventricular ICD forprimary prevention and treatment of symptoms related to congestive heartfailure. Follow up in EP clinic in 1-2 months. Procedures performed: new ICD system ( cpt 15156-R2); implant LV lead attime of ICD insertion (cpt 77527) I have read, edited and approve of this report: Lalit Mcmahon MD S Cardiac Electrophysiology 07/23/2022 4:22 PM Lalit Mcmahon MD EP PROCEDURE ORDERAB LES * POCT Glucose (07/23/2022 12:54 PM EDT) [facility] Signature Glucose, POC 83 65 - 199 mg/dL [facility] Comment: Supplemental ranges: <140 mg/dL before meals <180 mg/dL all other times of the day Blood 07/23/2022 12:5 4 PM EDT 07/23/2022 12:54 PM EDT Lalit Mcmahon MD POINT OF CARE TEST O RDERABLES Performing Organization Address City/[facility]/ZIP Co de Phone Number [facility] [place] [address] * EKG 12 Lead (07/23/2022 12:33 PM EDT) Ventricular rate 72 BPM MUSE SYSTEM Atrial Rate 72 BPM MUSE SYSTEM P-R Interval 158 ms MUSE SYSTEM QRS Duration 176 ms MUSE SYSTEM Q-T Interval 458 ms MUSE SYSTEM QTC Calculated (Bezet) 501 ms MUSE SYSTEM Calculated P [place] 34 degrees MUSE SYSTEM Calculated R [place] 12 degrees MUSE SYSTEM Calculated T [place] -173 degrees MUSE SYSTEM INTERPRETATION Normal sinus rhythm Left bundle branch block Abnormal ECG No previous ECGs available Confirmed by MD Salome, Lalit ([id number]) on 07/23/2022 1:19:03 PM MUSE SYSTEM 07/23/2022 12:3 3 PM EDT 07/23/2022 1:19 PM EDT Lalit Mcmahon MD ECG ORDERABLES Performing Organization Address [facility]/ZIP Co de Phone Number MUSE SYSTEM * Differential, Automated (07/23/2022 11:55 AM EDT) Neutrophil % 62.6 % [facility] Neutrophil Absolute 4.14 1.70 - 6.10 x10(3)/[facility] Lymph % 27.0 % [facility] Lymphocytes Abs 1.8 0.9 - 3.2 x10(3)/[facility] Monocyte % 7.3 % [facility] Monocyte Abs 0.5 0.3 - 0.9 x10(3)/[facility] Eos % 2.3 % [facility] Eosinophils Abs 0.2 0.0 - 0.4 x10(3)/[facility] Basophil % 0.6 % [facility] Baso Absolute 0.0 0.0 - 0.1 x10(3)/[facility] Immature Gran % 0.20 % [place] ORDERABLE S [facility] [place] [address] * Hemogram (07/23/2022 11:55 AM EDT) White [...] CENTER LABORATORY Platelet 193 145 - 357 x10(3)/[facility] RDW Standard Deviation 45.5 37.0 - 46.0 fL [facility] RDW coefficient of variation 13.2 11.5 - 14.1 % [facility] Mean Platelet Volume 9.5 7.6 - 12.9 fL [facility] NRBC% auto 0.0 % [facility] ITAL [facility] NRBC Absolute 0.000 0.000 - 0.000 x10(3)/[facility] Blood 07/23/2022 11:5 5 AM EDT 07/23/2022 12:07 PM EDT Narrative Resulting Agency Comment Spec In Lab Lalit Mcmahon MD HEMATOLOGY ORDERABLE S [facility] [place] [address] * (ABNORMAL) BMP w/fasting Glucose (07/23/2022 11:55 [...] of Diabetes Mellitus, Position Statement from the [place] [employer]. ??Diabetes Care, Volume 33, Supplement 1, Mar 2009 Blood Urea Nitrogen 23(H) 8 - 18 mg/dL [facility] Creatinine 1.07 0.70 - 1.20 mg/dL [facility] Sodium 141 135 - 145 [...] 98 - 107 mmol/L [facility] Carbon Dioxide 26 22 - 31 mmol/L [facility] Anion Gap 9 5 - 15 mmol/L [facility] Calcium 9.7 8.5 - 10.5 mg/dL [facility] Est Glomerular Filtration Rate 55(L) >=60 mL/min/1. 73 m?? [facility] Comment: This patient's estimated GFR [...] CHEMISTRY ORDERABLES Performing Organization Address [facility] Co de Phone Number [facility] [place] [address] * Prothrombin Time (07/23/2022 11:55 AM EDT) [...] HEMATOLOGY ORDERABLE S Performing Organization Address City/[facility] Co de Phone Number [facility] [place] [address] documented in this encounter Visit Diagnoses Diagnosis HFrEF (heart failure with reduced ejection fraction)- Primary Left bundle branch block Other left bundle branch block Nonischemic cardiomyopathy Other primary cardiomyopathies Cardiac resynchronization therapy defibrillator (HEALTH THERAPIST-D) in place Left bundle branch block Other [...] Routine documented in this encounter Care Teams Outside Sales Professional Relationship Specialty Start Date End Date Lolly Oliveira MD [address] [place] [address] PCP - General 07/17/13 documented as of this encounter
--- OUTSIDE RECORDS SUMMARY | 2024-03-31 10:59 | XMS_ITS | Encounter Summary ---
Author Organization [facility] [place] [address] Care Team Providers Care Contract Loader Name Role Phone Lolly Oliveira MD Primary Care Provider Encounter Details Date Type Department Care Team (Late st Contact Info) Description 05/18/2023 Refill Dermatology at [address] [address] Nora Meredith LPN Social [...] patient. She voiced understanding. Order sent to [facility] drug. documented in this encounter Plan of Treatment Upcoming Encounters Date Type Department Care Team (Late st Contact Info) Description 04/15/2024 10:00 AM EST Hospital Encounter Non-Invasive [place] [address] Arrived documented as of this encounter Visit Diagnoses Not on filedocumented in this encounter Care Teams Contract Loader Relationship Specialty Start Date End Date Lolly Oliveira MD [address] [place] [address] PCP - General 07/17/13 documented as of this encounter
--- OUTSIDE RECORDS SUMMARY | 2024-03-31 10:59 | XMS_ITS | Encounter Summary ---
Author Organization [facility] [place] [address] Care Team Providers Care Liquefaction Plant Operator Name Role Phone Lolly Oliveira MD Primary Care Provider [phone] Reason for Visit * Reason Comments Follow-up Encounter Details Date Type Department Care Team (Late st Contact Info) Description 05/21/2022 8:00 AM EDT Office Visit Dermatology at [address] [phone] Clay Ramírez MD [address] [facility] [place] [address] Psoriasis, guttate Social History Tobacco Use Types [...] [facility] Encounter Non-[place] [address] Arrived documented as of this encounter Visit Diagnoses Diagnosis Psoriasis, guttate Other psoriasis documented in this encounter Care Teams Liquefaction Plant Operator Relationship Specialty Start Date End Date Lolly Oliveira MD [address] [place] [address] PCP - General 07/17/13 documented as of this encounter
--- OUTSIDE RECORDS SUMMARY | 2024-03-31 10:59 | XMS_ITS | Encounter Summary ---
Author Organization [facility] [place] [address] Care Team Providers Care Space Engineer Name Role Phone Lolly Oliveira MD Primary Care Provider Encounter Details Date Type Department Care Team (Latest Contact Info) Description 10/18/2023 10:00 AM EDT - 10/18/2023 11:59 PM EDT Hospital Encounter [place] [address] Discharge Disposition: Home Social History Tobacco Use [...] spacer fluticasone propionate (Flonase) 50 mcg/actuation [place], Suspension 1 spray by Each Nare route daily as needed. documented as of this encounter Plan of Treatment Upcoming Encounters Date Type Department Care Team (Late st Contact Info) Description 04/15/2024 10:00 AM EST Hospital Encounter Non[place] [address] Arrived documented as of this encounter Procedures [...] on filedocumented in this encounter Care Teams Space Engineer Relationship Specialty Start Date End Date Lolly Oliveira MD [address] [place] [address] PCP - General 07/17/13 documented as of this encounter
--- OUTSIDE RECORDS SUMMARY | 2024-03-31 10:59 | XMS_ITS | Encounter Summary ---
Author Organization [facility] Address [facility] [place] [address] Care Team Providers Care Loan Underwriter Name Role Phone Lolly Oliveira MD Primary Care Provider [phone] Reason for Visit * Auth/Cert (Routine) Specialty Diagnoses / Procedures Referred By Contac t Referred To Contact Diagnoses Left bundle-branch block, unspecified Other cardiomyopathies Left bundle branch block [I44.7]Nonischemic cardiomyopathy [I42.8] Procedures PRG CATH PLMT LEFT HEART CATH & ARTS W/INJ & ANGIO IMG S&I ELECTROPHYSIOLOGY PROCEDURE Lalit Mcmahon MD [facility] [place] [address] [facility] Referral ID Status Reason Start Date Expiration Date Visits Re quested Visits Authorized [id number] 1 1 Encounter Details Date Type Department Care Team (Latest Contact Info) Description 07/23/2022 11:39 AM EDT - 07/24/2022 10:23 AM EDT Hospital [place] [id number] Lalit Mcmahon MD [facility] [address] Left bundle branch block; Nonischemic cardiomyopathy; Cardiac resynchronization therapy defibrillator (PATRIOT MISSILE AIR DEFENSE ARTILLERY-D) in place Discharge Disposition: Home Social History [...] Luna Mott Patient Age: 71 y.o. Language: St Helen[place] Race: White Ethnicity: Not nor Admit date: 07/23/2022 Discharge date and time: 07/24/22 Attending Physician: Lalit Mcmahon MD Discharge Physician: Lalit Mcmahon MD Follow-up Recommendations for Providers: - s/p PATRIOT MISSILE AIR DEFENSE ARTILLERY-D implant - post implant QRS 130 ms [...] lentigo Operations/Major Procedures: 07/23/22: [facility] PATRIOT MISSILE AIR DEFENSE ARTILLERY-D implant History of Presentation: 71 y.o. female with a history of HFrEF, LBBB, QRS >150, NYHA II who is POD#1 of PATRIOT MISSILE AIR DEFENSE ARTILLERY-D implant ([employer]). Hospital Course: Elective admission for PATRIOT MISSILE AIR DEFENSE ARTILLERY-D implant Admitted post-implant for pain management, telemetry [...] (heart failure with reduced ejection fraction) [I50.20] PATRIOT MISSILE AIR DEFENSE ARTILLERY-D implant Admission Condition: good Indication for Admission: [...] g Refills: 3 fluticasone propionate 50 mcg/actuation [place], Suspension Commonly known as: Flonase 1 spray [...] the incision. Make sure to use a printing grey cloth tender (such as a towel) in between [...] F. The office scheduling phone number is [phone]. ARM MOVEMENT RESTRICTIONS POST-IMPLANT - Do not [...] please call the Cardiac ElectrophysiologyTriage Nurse at [phone], option 3. General Instructions None Discharge References/Attachments None Lalit Mcmahon MD S Cardiac Electrophysiology 07/24/2022 12:33 PM documented in this encounter Discharge Instructions * Patient Instructions* Fadi Nunez MD - 07/24/2022 8:10 AM EDT FINAL ICD/PACEMAKER RECOMMENDATIONS: 1. Standard post implant discharge instructions (see below): 2. Medications as listed above. You may use ice packs over the incision. Make sure to use a printing grey cloth tender (such as a towel) in between [...] F. The office scheduling phone number is [phone]. ARM MOVEMENT RESTRICTIONS POST-IMPLANT - Do not [...] please call the Cardiac ElectrophysiologyTriage Nurse at [phone], option 3. documented in this encounter Medications [...] with spacer fluticasone propionate (Flonase) 50 mcg/actuation [place], Suspension 1 spray by Each Nare [...] Cardiac Electrophysiology Post-Implant Device Interrogation Luna Mott [id number] 07/24/2022 History: Luna Mott is a 71 y.o. female with a history of HFrEF, LBBB, QRS >150, NYHA II who is POD#1 of PATRIOT MISSILE AIR DEFENSE ARTILLERY-D implant ([employer]). Overall feels well this morning. Ready [...] WOB Neuro- A&Ox3 Device Interrogation: Data ?? Sap Basis Architect Model # Serial # Generator [employer] [id number] Atrial Lead [employer] [id number] RV Lead [employer] [id number] [id number] LV Lead [employer] [id number] ?? Diagnostics Pacing Mode: DDD 60-130 Underlying Rhythm: [place] Atrial Episodes: None Ventricular Episodes: None FINAL PROGRAMMING: Pacing: Mode Lower rate (ppm) Upper rate (ppm) ?? DDD 60 130 VF: Rate (bpm) #Antitachycardia pacing First shock energy (J) ?? 200 Quick convert 41 VT: 170 Monitor only Monitor only ? Battery and Leads Impedances (ohms) Sensing (mV) Thresholds HV RA RV LV RA RV LV RA RV LV 73 [id number] (LVa) 7.7 13.1 >25 0.4V @ 0.4 ms 0.4V @ 0.4 ms 0.5 V @ 1.0 ms POD#1 CXR: All leads in nominal positioning Impression: 71 y.o. female who is s/p PATRIOT MISSILE AIR DEFENSE ARTILLERY-D implant for LBBB, NYHA II, HFrEF. - [...] [facility] Fadi Nunez MD 07/24/2022 Pager: [phone] I met with the patient today and [...] agreement. ? Dr. Lalit Mcmahon, electrophysiology attending ([id number]) * Zaria Wright RN - 07/23/2022 8:28 [...] documented in this encounter H&P Notes * Llait Mcmahon MD - 07/23/2022 12:28 PM EDT Images from the original note were not included. Clinical Cardiac Electrophysiology Interval History and Physical Exam For Planned Procedure HISTORY OF PRESENT ILLNESS: Luna Mott is a 71 y.o. female with a history of HFrEF, LVEF <30%, NYHA Class II HF, QRS > 150 ms presents for PATRIOT MISSILE AIR DEFENSE ARTILLERY-D placement. ROS: Denies recent fevers or chills [...] 0.9) flush 5 mL 5 mL Intravenous [id number] ramos MD ??? sodium chloride 0.9 % [...] HF, QRS > 150 ms presents for PATRIOT MISSILE AIR DEFENSE ARTILLERY-D placement. Backup would be LBBAP lead. Antibiotics: cefazolin Rationales for, intended benefits and potential risk of planned procedures reviewed. The patient indicated understanding and agreement with the plan. Informed consent signed. Procedure checklist completed. Fadi Nunez MD Cardiac Electrophysiology Fellow [facility] Pager [phone] 07/23/2022 I met with the patient today [...] agreement. ? Dr. Lalit Mcmahon, electrophysiology attending ([id number]) documented in this encounter Miscellaneous Notes * Brief Op Note - Lalit Mcmahon MD - 07/23/2022 4:04 PM EDT Brief Operative Note Patient Name: Luna Mott : [id number] MR#: [id number] Case Date: 07/23/2022 Surgeon: Surgeon(s) and Role: [...] AM EST Hospital Encounter Non-Invasive [place] [address] Arrived Scheduled Orders Name Type Priority Associated Diagnoses Orde r Schedule EKG 12 Lead ECG Routine Cardiac resynchronization therapy defibrillator (PATRIOT MISSILE AIR DEFENSE ARTILLERY-D) in place One Time for 1 Occurrences [...] (Bezet) 522 ms MUSE SYSTEM Calculated R [place] 78 degrees MUSE SYSTEM Calculated T [place] -71 degrees MUSE SYSTEM INTERPRETATION AV dual-paced [...] result was not included. BIVENTRICULAR ICD IMPLANTATION Supervisor Ski Production: Lalit Mcmahon MD Fellow: Fadi Nunez MD [...] of the CS in the [place] view. This branch was cannulated with a [...] the entire procedure. LEAD AND GENERATOR DATA: Sap Basis Architect Model # Serial # Generator [employer] [id number] Atrial Lead [employer] [id number] RV Lead [employer] 0672 [id number] LV Lead [employer] [id number] [id number] PACE/SENSE DATA: Sensed wave (mV) Threshold (V) [...] (cGycm2) 300 CONCLUSIONS: Successful implantation of a [employer] biventricular ICD for primary prevention and treatment of symptoms related to congestive heart failure. Follow up in EP clinic in 1-2 months. Procedures performed: new ICD system ( cpt 79838-X4); implant LV lead at time of ICD insertion (cpt 46729) I have read, edited and approve of this report: Lalit Mcmahon MD S Cardiac Electrophysiology 07/23/2022 4:22 PM Procedure Note Lalit Mcmahon MD - 07/23/2022 BIVENTRICULAR ICD IMPLANTATION Supervisor Ski Production: Lalit Mcmahon MD Fellow: Fadi Nunez MD [...] of the CS in the [place] view. This branch was cannulated with a [...] in the entireprocedure. LEAD AND GENERATOR DATA: Sap Basis Architect Model # Serial # Generator [employer] [id number] Atrial Lead [employer] [id number] [id number] RV Lead [employer] 0672 [id number] LV Lead [employer] 4674 [id number] PACE/SENSE DATA: Sensed wave (mV) Threshold (V) [...] (cGycm2) 300 CONCLUSIONS: Successful implantation of a [employer] biventricular ICD forprimary prevention and treatment of symptoms related to congestive heartfailure. Follow up in EP clinic in 1-2 months. Procedures performed: new ICD system ( cpt 46885-R8); implant LV lead attime of ICD insertion (cpt 39626) I have read, edited and approve of this report: Lalit Mcmahon MD [facility] Cardiac Electrophysiology 07/23/2022 4:22 PM Lalit Mcmahon MD EP PROCEDURE ORDERAB LES * POCT Glucose (07/23/2022 12:54 PM EDT) Glucose, POC 83 65 - 199 mg/dL [facility] Comment: Supplemental ranges: <140 mg/dL before meals <180 mg/dL all other times of the day Blood 07/23/2022 12:5 4 PM EDT 07/23/2022 12:54 PM EDT Lalit Mcmahon MD POINT OF CARE TEST O RDERABLES Performing Organization Address [facility] Co de Phone Number [facility] [place] [address] * EKG 12 Lead (07/23/2022 12:33 PM EDT) Ventricular rate 72 BPM MUSE SYSTEM Atrial Rate 72 BPM MUSE SYSTEM P-R Interval 158 ms MUSE SYSTEM QRS Duration 176 ms MUSE SYSTEM Q-T Interval 458 ms MUSE SYSTEM QTC Calculated (Bezet) 501 ms MUSE SYSTEM Calculated P [place] 34 degrees MUSE SYSTEM Calculated R [place] 12 degrees MUSE SYSTEM Calculated T [place] -173 degrees MUSE SYSTEM INTERPRETATION Normal sinus rhythm Left bundle branch block Abnormal ECG No previous ECGs available Confirmed by MD Salome, Lalit ([id number]) on 07/23/2022 1:19:03 PM MUSE SYSTEM 07/23/2022 12:3 3 PM EDT 07/23/2022 1:19 PM EDT Lalit Mcmahon MD ECG ORDERABLES Performing Organization Address [facility] de Phone Number MUSE SYSTEM * Differential, Automated (07/23/2022 11:55 AM EDT) Neutrophil % 62.6 % [facility] Neutrophil Absolute 4.14 1.70 - 6.10 x10(3)/[facility] Lymph % 27.0 % [facility] Lymphocytes Abs 1.8 0.9 - 3.2 x10(3)/[facility] Monocyte % 7.3 % [facility] Monocyte Abs 0.5 0.3 - 0.9 x10(3)/[facility] Eos % 2.3 % [facility] Eosinophils Abs 0.2 0.0 - 0.4 x10(3)/[facility] LAB[facility] Basophil % 0.6 % [facility] Baso Absolute 0.0 0.0 - 0.1 x10(3)/[facility] Immature Gran % 0.20 % [facility] Comment: Immature granulocytes(IG's)percentage and absolute count will include metamyelocytes, myelocytes, and promyelocytes. Blood smears from CBCs yielding IG's will be scanned manually for concordance. If this scan disagrees with the automated IG or if promyelocytes are noted, a manual differential will be performed. Immature Gran Absolute 0.01 0.00 - 0.04 x10(3)/[facility] Blood 07/23/2022 11:5 5 AM EDT 07/23/2022 12:07 PM EDT Narrative Resulting Agency Comment Spec In Lab Lalit Mcmahon MD HEMATOLOGY ORDERABLE S [facility] [place] [address] * Hemogram (07/23/2022 11:55 AM EDT) White Blood Cell 6.6 4.0 - 9.5 x10(3)/[facility] Red Blood Cell 4.50 4.00 - 5.21 x10(6)/[facility] Hemoglobin 13.7 11.7 - 15.5 g/dL [facility] Hematocrit 42.5 35.7 - 45.8 % [facility] Mean Cell Volume 94.4 82.6 - 94.4 fL [facility] Mean Cell Hemoglobin 30.4 27.1 - 32.0 pg [facility] Mean Cell Hemoglobin Concentration 32.2 31.7 - 35.0 g/dL [facility] Platelet 193 145 - 357 x10(3)/[facility] RDW Standard Deviation 45.5 37.0 - 46.0 fL [facility] RDW coefficient of variation 13.2 11.5 - 14.1 % [facility] Mean Platelet Volume 9.5 7.6 - 12.9 fL [facility] NRBC% auto 0.0 % [facility] NRBC Absolute 0.000 0.000 - 0.000 x10(3)/mcL [facility] Blood 07/23/2022 11:5 5 AM EDT 07/23/2022 12:07 PM EDT Narrative Resulting Agency Comment Spec In Lab Lalit Mcmahon MD HEMATOLOGY ORDERABLE S [facility] [address] [place] [address] * (ABNORMAL) BMP w/fasting Glucose (07/23/2022 11:55 AM EDT) Glucose Fasting 110(H) 65 - 99 mg/dL [facility] Comment: ?Fasting* Glucose Interpretive Criteria [...] of Diabetes Mellitus, Position Statement from the [place] [employer]. ??Diabetes Care, Volume 33, Supplement 1, Mar 2009 Blood Urea Nitrogen 23(H) 8 - 18 mg/dL [facility] Creatinine 1.07 0.70 - 1.20 mg/dL [facility] Sodium 141 135 - 145 mmol/L [facility] Potassium 4.8 3.5 - 5.0 mmol/L [facility] Comment: Please note: ??Patients with WBC >100,000 may have falsely elevated Potassium levels. ??For accurate Potassium quantification in these patients send serum separator tube (gold top) for subsequent determinations. ??Contact the Clinical Chemistry Laboratory if there are any questions. Chloride 106 98 - 107 mmol/L [facility] Carbon Dioxide 26 22 - 31 mmol/L [facility] Anion Gap 9 5 - 15 mmol/L [facility] Calcium 9.7 8.5 - 10.5 mg/dL [facility] Est Glomerular Filtration Rate 55(L) >=60 mL/min/1. 73 m?? [facility] Comment: This patient's estimated GFR [...] Mcmahon MD CHEMISTRY ORDERABLES Performing Organization Address [facility] Co de Phone Number [facility] [place] [address] * Prothrombin Time (07/23/2022 11:55 AM EDT) Prothrombin Time 11.7 9.4 - 12.5 sec [facility] International Normalization Ratio 1.0 [facility] Comment: An INR <2.0 indicates [...] HEMATOLOGY ORDERABLE S Performing Organization Address City/[facility] Co de Phone Number [facility] [place] [address] documented in this encounter Visit Diagnoses Diagnosis HFrEF (heart failure with reduced ejection fraction)- Primary Left bundle branch block Other left bundle branch block Nonischemic cardiomyopathy Other primary cardiomyopathies Cardiac resynchronization therapy defibrillator (PATRIOT MISSILE AIR DEFENSE ARTILLERY-D) in place Left bundle branch block Other [...] Routine documented in this encounter Care Teams Loan Underwriter Relationship Specialty Start Date End Date Lolly Oliveira MD [address] [place] [address] PCP - General 07/17/13 documented as of this encounter
--- OUTSIDE RECORDS SUMMARY | 2024-03-31 10:59 | XMS_ITS | Clinical Summary ---
Author Organization [facility] [place] [address] Care Team Providers Care Globe Changer Name Role Phone Lolly Oliveira MD Primary Care Provider [phone] Allergies Active Allergy Reactions Criticality Noted Date [...] spacer Active fluticasone propionate (Flonase) 50 mcg/actuation [place], Suspension 1 spray by Each Nare route [...] PM EST Hospital Encounter Non-In[place] [address] Discharge Disposition: Home from Last [...] EST Hospital Encounter Non-Invasive [place] [address] Arrived Health Maintenance Due Date Last Done [...] series) 11/07/2023 Medical Devices Implanted Type Area Lineman Service Or Work Dispatcher Device Identifier Shelf Expiration Date Model / Serial / Lot Bsx: [id number]: [id number]/18/2 023 Implanted: by Lalit Mcmahon MD (Quantity not on file) Defibrillator Chest Wall [employer] [id number] / [id number] / Bsx: [id number]: [id number]/18/2 023 Implanted: by Lalit Mcmahon MD (Quantity not on file) Lead Heart [employer] 4674 / [id number] / Bsx: [id number]: [id number] Implanted: by Lalit Mcmahon MD (Quantity not on file) Lead Heart [employer] 7841 / [id number] / Bsx: 0672: [id number]/18/2 023 Implanted: by Lalit Mcmahon MD (Quantity not on file) Lead Heart [employer] 0672 / [id number] / Procedures Procedure Name Priority Date/Time Associated [...] Status decision made by: Patient Care Teams Globe Changer Relationship Specialty Start Date End Date Lolly Oliveira MD [address] [place] [id number] PCP - General 07/17/13
--- OUTSIDE RECORDS SUMMARY | 2024-03-31 10:59 | XMS_ITS | Encounter Summary ---
[place] [address] Care Team Providers Care Forestry Professor Name Role Phone Lolly Oliveira MD Primary Care Provider [phone] Encounter Details Date Type Department Care Team (Late st Contact Info) Description 04/09/2022 Refill Dermatology at [address] [address] Nora Meredith, FAMILY AND MARRIAGE COUNSELLOR Social History Tobacco Use Types Packs/Day Years [...] [facility] Hospital Encounter [place] [address] Arrived documented as of this encounter Visit Diagnoses Not on filedocumented in this encounter Care Teams Forestry Professor Relationship Specialty Start Date End Date Lolly Oliveira MD [address] [place] [address] PCP - General 07/17/13 documented as of this encounter
--- OUTSIDE RECORDS SUMMARY | 2024-03-31 10:59 | XMS_ITS | Encounter Summary ---
[place] [address] Care Team Providers Care Forming Machine Upkeep Mechanic Helper Name Role Phone Lolly Oliveira MD Primary Care Provider [phone] Encounter Details Date Type Department Care Team [...] AM EST Hospital Encounter Non-[place] [address] Arrived documented as of this encounter Visit Diagnoses Not on filedocumented in this encounter Care Teams Forming Machine Upkeep Mechanic Helper Relationship Specialty Start Date End Date Lolly Oliveira MD [address] [place] [address] PCP - General 07/17/13 documented as of this encounter
--- OUTSIDE RECORDS SUMMARY | 2024-03-31 10:59 | XMS_ITS | Encounter Summary ---
Author Organization [facility] [place] [address] Care Team Providers Care Farm Machinery Erector Name Role Phone Lolly Oliveira MD Primary Care Provider [phone] Reason for Visit * Reason Comments Follow-up Encounter Details Date Type Department Care Team (Late st Contact Info) Description 07/02/2022 8:00 AM EDT Office Visit Dermatology at [address] [phone] Clay Ramírez MD [address] [facility] [place] [address] Psoriasis, guttate Social History Tobacco Use Types [...] [facility] Hospital Encounter Non[place] [address] Arrived documented as of this encounter Visit Diagnoses Diagnosis Psoriasis, guttate Other psoriasis documented in this encounter Care Teams Farm Machinery Erector Relationship Specialty Start Date End Date Lolly Oliveira MD [address] [place] [address] PCP - General 07/17/13 documented as of this encounter
--- OUTSIDE RECORDS SUMMARY | 2024-03-31 10:59 | XMS_ITS | Encounter Summary ---
Author Organization [facility] Address [facility] [place] [address] Care Team Providers Care Cutter Operator Brick Name Role Phone Lolly Oliveira MD Primary Care Provider Encounter Details Date Type Department Care Team (Late st Contact Info) Description 11/11/2022 Orders Only Cardiology at [address] [phone] Lalit Mcmahon MD [facility] [place] [address] Nonischemic cardiomyopathy Social History Tobacco Use Types [...] [facility] Hospital Encounter Non[place] [phone] Arrived documented as of this encounter Visit Diagnoses Diagnosis Nonischemic cardiomyopathy Other primary cardiomyopathies documented in this encounter Care Teams Cutter Operator Brick Relationship Specialty Start Date End Date Berrian, Lolly M, MD [address] [place] [address] PCP - General 07/17/13 documented as of this encounter
--- OUTSIDE RECORDS SUMMARY | 2024-03-31 10:59 | XMS_ITS | Encounter Summary ---
Author Organization [facility] [place] [address] Care Team Providers Care Sonar Watchstander Name Role Phone Lolly Oliveira MD Primary Care Provider [phone] Reason for Visit * Diagnostic Test (Routine) - Closed Specialty Diagnoses / Procedures Referred By Contac t Referred To Contact Radiology Diagnoses Left bundle branch block Nonischemic cardiomyopathy Procedures MRI Cardiac Morphology Function With Flow Velocity Quantification wwo Contrast MRI Cardiac Morphology Function wwo Contrast Lalit Mcmahon MD [facility] [place] [address] [facility] [place] [address] Referral ID Status Reason Start Date Expiration Date V isits Requested Visits Authorized [id number] Closed Specialty Service Requested 05/06/2022 11/07/2023 2 1 Encounter Details Date Type Department Care Team (Latest Contact Info) Description 07/14/2022 9:09 AM EDT - 07/14/2022 11:59 PM EDT Hospital [place] [address] Lalit Mcmahon MD [facility] [place] [address] Discharge Disposition: Home Social History Tobacco Use [...] with spacer fluticasone propionate (Flonase) 50 mcg/actuation [place], Suspension 1 spray by Each Nare route [...] AM EST Hospital Encounter Non-Invasive [place] [address] Arrived documented as of [...] mLs documented in this encounter Care Teams Sonar Watchstander Relationship Specialty Start Date End Date Lolly Oliveira MD [address] [place] [address] PCP - General 07/17/13 documented as of this encounter
--- OUTSIDE RECORDS SUMMARY | 2024-03-31 10:59 | XMS_ITS | Encounter Summary ---
Author Organization [facility] [place] [address] Care Team Providers Care Ux Consultant Name Role Phone Lolly Oliveira MD Primary Care Provider [phone] Encounter Details Date Type Department Care Team (Latest Contact Info) Description 10/23/2022 10:00 AM EDT - 10/23/2022 11:59 PM EDT Hospital Encounter [place] [address] Discharge Disposition: Home Social History Tobacco Use [...] with spacer fluticasone propionate (Flonase) 50 mcg/actuation [place], Suspension 1 spray by Each Nare route [...] [facility] Hospital Encounter [place] [address] Arrived documented as of this [...] on filedocumented in this encounter Care Teams Ux Consultant Relationship Specialty Start Date End Date Lolly Oliveira MD [address] [place] [address] PCP - General 07/17/13 documented as of this encounter
--- OUTSIDE RECORDS SUMMARY | 2024-03-31 11:00 | XMS_ITS | Encounter Summary ---
[place] [address] Care Team Providers Care Bread Wrapper Operator Name Role Phone Lolly Oliveira MD Primary Care Provider [phone] Encounter Details Date Type Department Care Team (Latest Contact Info) Description 07/26/2013 9:45 AM EDT - 07/26/2013 11:59 PM EDT Hospital [place] [address] Mammographic microcalcification Social History Tobacco Use Types [...] AM EST Hospital Encounter Non[place] [address] Arrived documented as of this encounter Procedures Procedure Name Priority Date/Time Associated Diagnosis Comments SURGICAL PATHOLOGY REPORT Routine 07/26/2013 12:12 PM EDT MAMMO SPECIMEN IMAGING DURING BIOPSY Routine 07/26/2013 11:58 AM EDT Mammographic microcalcification documented in this encounter Results * Surgical Pathology Report (07/26/2013 12:12 PM EDT) Final Diagnosis ? [facility] ? Provider: ?? ELENO CHRISTIAN ?? Pt. Name: ?? JING MOTT ? Acc #: ?[id number] ?Pt. ? Col Date: ?? 07/26/2013 ? [...] Partially fragmented, fibrofatty needle core biopsies. ? [facility] ? Provider: ?? ELENO CHRISTIAN ?? Pt. Name: ?? JING MOTT ? Acc #: ?[id number] ?Pt. ? Col Date: ?? 07/26/2013 ? [...] Performing Organization Address City/State/[facility] Co mo Phone Number [facility] [place] [address] * Mammo Specimen Imaging During Biopsy (07/26/2013 [...] sclerosing lesion completely excised Procedure Note Eleno hCristian MD - 07/28/2013 VACUUM ASSISTED STEREOTACTIC GUIDED [...] microcalcification documented in this encounter Care Teams Bread Wrapper Operator Relationship Specialty Start Date End Date Lolly Oliveira MD [address] [place] [address] PCP - General 07/17/13 documented as of this encounter
--- OUTSIDE RECORDS SUMMARY | 2024-03-31 11:00 | XMS_ITS | Encounter Summary ---
Author Organization [place] [address] Care Team Providers Care Baggage Checker Name Role Phone Unavailable Primary Care Provider Unavailabl e Encounter Details Date Type Department Care Team (Late st Contact Info) Description 07/04/2012 Orders [place] [address] Eleno Christian MD Social History Tobacco Use [...] AM EST Hospital Encounter Non-Invasive [place] [address] Arrived documented as of this encounter Procedures [...]
--- OUTSIDE RECORDS SUMMARY | 2024-03-31 11:00 | XMS_ITS | Encounter Summary ---
Author Organization [facility] [place] [address] Care Team Providers Care Helicopter Pilot Name Role Phone Lolly Oliveira MD Primary Care Provider [phone] Encounter Details Date Type Department Care Team (Late st Contact Info) Description 07/26/2013 Orders [place] [address] Eleno Christian MD Social History [...] [facility] Hospital Encounter Non-Invasive [place] [address] Arrived documented as of this encounter Visit Diagnoses Not on filedocumented in this encounter Care Teams Helicopter Pilot Relationship Specialty Start Date End Date Lolly Oliveira MD [address] [place] [address] PCP - General 07/17/13 documented as of this encounter
--- OUTSIDE RECORDS SUMMARY | 2024-03-31 11:00 | XMS_ITS | Encounter Summary ---
Author Organization [place] [address] Care Team Providers Care Gin Pole Operator Name Role Phone Unavailable Primary Care Provider Unavailabl e Encounter Details Date Type Department Care Team (Late st Contact Info) Description 07/14/2013 [place] [address] Eleno Christian MD Social History Tobacco Use [...] AM EST Hospital Encounter [place] [address] Arrived documented as of this encounter Visit Diagnoses Not on filedocumented in this encounter
--- OUTSIDE RECORDS SUMMARY | 2024-03-31 11:00 | XMS_ITS | Encounter Summary ---
Author Organization [facility] [place] [address] Care Team Providers Care Cyber Reverse Engineer Name Role Phone Lolly Oliveira MD Primary Care Provider [phone] Encounter Details Date Type Department Care Team (Latest Contact Info) Description 07/26/2013 9:45 AM EDT - 07/26/2013 11:59 PM EDT Hospital En[place] [address] Mammographic microcalcification Social History Tobacco Use Types [...] AM EST Hospital Encounter Non-Invasive [place] [address] Arrived documented as of this encounter Procedures [...] microcalcification documented in this encounter Care Teams Cyber Reverse Engineer Relationship Specialty Start Date End Date Lolly Oliveira MD [address] [place] [address] PCP - General 07/17/13 documented as of this encounter
--- OUTSIDE RECORDS SUMMARY | 2024-03-31 11:00 | XMS_ITS | Encounter Summary ---
Author Organization [facility] [place] [address] Care Team Providers Care Appellate Court Judge Name Role Phone Lolly Oliveira MD Primary Care Provider [phone] Encounter Details Date Type Department Care Team (Latest Contact Info) Description 07/18/2013 [place] [address] Alia Fraire MD Mammographic microcalcification (Primary Dx) [...] [facility] Hospital Encounter Non-[place] [address] Arrived documented as of this encounter Results [...] are present on specimen digital X-ray. A Telogisrk Eviva-Stereo 13 Cylinder marker clip was placed. [...] calcifications are present on specimendigital X-ray. A Telogisrk Eviva-Stereo 13 Cylinder marker clip was placed. [...] does not layer and, therefore, are not passenger service representative of milk of calcium. Again, [...] does not layer and, therefore, are not passenger service representative of milk of calcium. Again, these have an amorphous andpunctate appearance and remain indeterminate. Stereotactic guided biopsy isrecommended. Alia Fraire MD IMG MAMMO ORDERABLES documented in this encounter Visit Diagnoses Diagnosis Mammographic microcalcification- Primary Mammographic microcalcification Mammographic microcalcification Mammographic microcalcification Mammographic microcalcification documented in this encounter Care Teams Appellate Court Judge Relationship Specialty Start Date End Date Lolly Oliveira MD [address] [place] [address] PCP - General 07/17/13 documented as of this encounter
--- OUTSIDE RECORDS SUMMARY | 2024-03-31 11:00 | XMS_ITS | Encounter Summary ---
Author Organization [facility] [place] [address] Care Team Providers Care Roof Bolter Helper Name Role Phone Lolly Oliveira MD Primary Care Provider [phone] Encounter Details Date Type Department Care Team (Latest Contact Info) Description 07/17/2013 8:40 AM EDT - 07/17/2013 11:59 PM EDT Hospital Encounter XRay at [address] [place] [address] CLIN[address], [facility] Discharge Disposition: Home Social [...] EST Hospital Encounter Non-Invasive [place] [address] Arrived documented as of this encounter Visit Diagnoses Not on filedocumented in this encounter Care Teams Roof Bolter Helper Relationship Specialty Start Date End Date Lolly Oliveira MD [address] [place] [address] PCP - General 07/17/13 documented as of this encounter
--- OUTSIDE RECORDS SUMMARY | 2024-03-31 11:00 | XMS_ITS | Encounter Summary ---
Author Organization [facility] [place] [address] Care Team Providers Care Auto Travel Counselor Name Role Phone Lolly Oliveira MD Primary Care Provider [phone] Reason for Visit * Reason Comments Skin Check Encounter Details Date Type Department Care Team (Late st Contact Info) Description 11/23/2014 10:00 AM EDT Office Visit Dermatology at [address] [address] Clay Ramírez MD [address] [facility], [place] [address] Dermatofibroma; Nevus; Solar lentigo Discharge Disposition: Home [...] [facility] Hospital Encounter Non-Invasive [place] [address] Arrived documented as of this encounter Visit Diagnoses Diagnosis Dermatofibroma Benign neoplasm of skin, site unspecified Nevus Benign neoplasm of skin, site unspecified Solar lentigo Other dyschromia documented in this encounter Care Teams Auto Travel Counselor Relationship Specialty Start Date End Date Lolly Oliveira MD [address] [place] [address] PCP - General 07/17/13 documented as of this encounter
--- OUTSIDE RECORDS SUMMARY | 2024-03-31 11:00 | XMS_ITS | Encounter Summary ---
Author Organization [facility] [place] [address] Care Team Providers Care Renewable Energy Engineer Name Role Phone Lolly Oliveira MD Primary Care Provider [phone] Encounter Details Date Type Department Care Team (Latest Contact Info) Description 07/26/2013 9:44 AM EDT - 07/26/2013 11:59 PM EDT Hospital Encounter [place] [address] CLINIC, Lolly So MD [address] [place], [place] [id number] Mammographic microcalcification Discharge Disposition: Home Social History [...] AM EST Hospital Encounter Non-Invasive [place] [address] Arrived documented as of this encounter Procedures [...] are present on specimen digital X-ray. A LinkoTec-Stereo 13 Cylinder marker clip was placed. Cranio-caudal [...] mLs documented in this encounter Care Teams Renewable Energy Engineer Relationship Specialty Start Date End Date Lolly Oliveira MD [address] [place] [address] PCP - General 07/17/13 documented as of this encounter
--- OUTSIDE RECORDS SUMMARY | 2024-03-31 11:00 | XMS_ITS | Encounter Summary ---
Author Organization [place] [address] Care Team Providers Care Glycerin Operator Name Role Phone Lolly Oliveira MD Primary Care Provider [phone] Encounter Details Date Type Department Care Team (Late st Contact Info) Description 06/29/2011 Orders [place] [address] Eleno Christian MD Social History Tobacco Use [...] [facility] Hospital Encounter Non-Invasive [place] [address] Arrived documented as of this encounter Procedures [...] on filedocumented in this encounter Care Teams Glycerin Operator Relationship Specialty Start Date End Date Lolly Oliveira MD [address] [place] [address] PCP - General 07/17/13 documented as of this encounter
--- OUTSIDE RECORDS SUMMARY | 2024-03-31 11:00 | XMS_ITS | Encounter Summary ---
Author Organization [facility] [place] [address] Care Team Providers Care Shingle Weaver Name Role Phone Unavailable Primary Care Provider Unavailabl e Encounter Details Date Type Department Care Team (Late st Contact Info) Description 07/14/2013 External Results XRay at [address] [place] [address] Provider, Scanning Social History Tobacco Use Types [...] EST Hospital Encounter Non-Invasive Cardiology Lab [facility] [place] [address] Arrived documented as of this encounter Procedures [...]
--- OUTSIDE RECORDS SUMMARY | 2024-03-31 11:00 | XMS_ITS | Encounter Summary ---
Author Organization [facility] [place] [address] Care Team Providers Care Plant Anatomy Teacher Name Role Phone Lolly Oliveira MD Primary Care Provider [phone] Encounter Details Date Type Department Care Team (Latest Contact Info) Description 07/20/2013 9:26 AM EDT - 07/20/2013 11:59 PM EDT Hospital Encounter [place] [address] CLINIC, Lolly So MD [address] [place], [place] [id number] Mammographic microcalcification Discharge Disposition: Home Social History [...] Hospital Encounter Non-[place] [address] Arrived documented as of this encounter Procedures [...] does not layer and, therefore, are not national sales representative of milk of calcium. Again, [...] does not layer and, therefore, are not national sales representative of milk of calcium. Again, these have an amorphous andpunctate appearance and remain indeterminate. Stereotactic guided biopsy isrecommended. Alia Fraire MD IMG MAMMO ORDERABLES documented in this encounter Visit Diagnoses Diagnosis Mammographic microcalcification documented in this encounter Care Teams Plant Anatomy Teacher Relationship Specialty Start Date End Date Lolly Oliveira MD [address] [place] [address] PCP - General 07/17/13 documented as of this encounter
--- OUTSIDE RECORDS SUMMARY | 2024-03-31 11:00 | XMS_ITS | Encounter Summary ---
Author Organization [facility] [place] [address] Care Team Providers Care Ice Rink Attendant Name Role Phone Lolly Oliveira MD Primary Care Provider [phone] Encounter Details Date Type Department Care Team (Late st Contact Info) Description 04/01/2021 3:30 PM EST Office Visit Dermatology at [address] [phone] Clay Ramírez MD [address], [place] [address] Psoriasis, guttate Social History Tobacco Use Types [...] Hospital Encounter Non-[place] [address] Arrived documented as of this encounter Visit Diagnoses Diagnosis Psoriasis, guttate Other psoriasis documented in this encounter Care Teams Ice Rink Attendant Relationship Specialty Start Date End Date Lolly Oliveira MD [address] [place] [address] PCP - General 07/17/13 documented as of this encounter
--- OUTSIDE RECORDS SUMMARY | 2024-03-31 11:00 | XMS_ITS | Encounter Summary ---
[place] [address] Care Team Providers Care Network Engineer Name Role Phone Lolly Oliveira MD Primary Care Provider [phone] Encounter Details Date Type Department Care Team (Late st Contact Info) Description 07/17/2013 [place] [address] Lolly Oliveira MD [address] [place], [place] [id number] Social History Tobacco Use Types Packs/Day Years [...] Hospital Encounter Non-Invasive [place] [address] Arrived documented as of this encounter Procedures [...] OUTSIDE MAMMOGRAMS (PERFORMED ON 07/06/13 AND 07/14/13) [facility] DATED 07/17/13: DIAGNOSTIC IMAGING SUMMARY: RIGHT BREAST [...] filedocumented in this encounter Care Teams Network Engineer Relationship Specialty Start Date End Date Lolly Oliveira MD [address] [place] [address] PCP - General 07/17/13 documented as of this encounter
--- OUTSIDE RECORDS SUMMARY | 2024-03-31 11:00 | XMS_ITS | Encounter Summary ---
Author Organization [facility] [place] [address] Care Team Providers Care Hotbed Transfer Operator Name Role Phone Lolly Oliveira MD Primary Care Provider [phone] Reason for Visit * Reason Comments Follow-up Encounter Details Date Type Department Care Team (Late st Contact Info) Description 06/06/2021 8:45 AM EDT Office Visit Dermatology at [address] [address] Clay Ramírez MD [address] [facility] [place] [address] Psoriasis, guttate Social History Tobacco Use Types [...] Hospital Encounter Non-Invasive [place] [address] Arrived documented as of this encounter Visit Diagnoses Diagnosis Psoriasis, guttate Other psoriasis documented in this encounter Care Teams Hotbed Transfer Operator Relationship Specialty Start Date End Date Lolly Oliveira MD [address] [place] [address] PCP - General 07/17/13 documented as of this encounter
[2024-03-31 11:08] VITALS: BP 142/65; PULSE 69; O2SAT 96
--- OUTSIDE RECORDS SUMMARY | 2024-04-05 11:17 | XMS_ITS | Data Portability ---
Author Organization [place] - [facility] Address [address] [place] [address] Care Team Providers Care Cow Rider Name Role Phone [facility] OFF[facility] Optometris t ZAMZAM BOSS Stores Clerk JAYCOB MARTINEZ Orthopedic Surgeon [phone] ROXANA KELLEY Environmental Services Technician FLOWER RAMSEY Dentist [phone] Assessment Encounter Date Assessment Date Assessment LastModified [...] copy of PPP at conclusion of visit. [email or web address] Not available 04/20/2023 07:44:20 Plan of Treatment Reminders Order Date Submit Date Provider Last Modified By Organization Details Last Modified Time Details Appointments Medicare Annual Wellness 40 2024 07:30A M LOLLY CORTEZ Not available Not available Not available Lab None recorded. Referral podiatris t referral 2023 024 [email or web address] [facility], [address] [place] [address] Dr, [place], [address], 09/24/2023 13:45:43 physical therapist referral 2023 024 Chinedu Amato PT, [address] , [place], [address], 10/18/2023 12:01:58 Procedures None recorded. Surgeries None recorded. Imaging MAMMO, screening , bilateral 2023 024 [facility] (Radiology), [address] [place] [address] , [place], [address], 11/26/2023 15:15:54 Medication Orders Jardiance 10 mg tablet 2023 024 [facility], [address] [place] [address], [address], 05/24/2023 18:32:26 lisinopri l 20 mg tablet 2023 024 LASHAWNNILA [facility], [address] [place] [address], [address], 05/24/2023 18:32:26 meclizine 25 mg tablet 2023 024 LAS[facility], [address] [place] [address], [address], 09/01/2023 13:22:14 Patient TargetsNo targets recorded. Patient Instructions Encounter Date Encounter Id Patient Instructions Last Modified By Organization Details Last Modified Time 05/21/2023 [id number] Discussed and explained advance directives such as standard forms to the {{patient caregiv er patient and caregiver}}. Face to face discussion lasted for a duration of ___ minutes. [email or web address] Not available 04/20/2023 07:44:20 09/01/2023 [id number] 1. 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 Not Available [address] [place], [address] 11/18/2023 09:59:24 11/18/19 24 11/18/2023 COMPR EHENS NEEL METAB OLIC PANEL calcium 9.0 mg/dL 8.5-10 .1 normal Not Available [address] [place], [address] 11/18/2023 10:01:26 11/18/19 24 11/18/2023 COMPR EHENS NEEL METAB OLIC PANEL glucose 105 mg/dL 74-106 normal Not Available [facility] [address] [place], [address] 11/18/2023 10:01:11/18/19 24 11/18/2023 COMPR EHENS NEEL METAB OLIC PANEL BUN 27 mg/dL 7-18 high Not Available [facility] [address] [place], [address] 11/18/2023 10:01:11/18/19 24 11/18/2023 COMPR EHENS NEEL METAB OLIC PANEL creatinine 1.3 mg/dL 0.55-1 .02 high Not Available [address] [place], [address] 11/18/2023 10:01:11/18/1911/18/2023 COMPR EHENS NEEL METAB OLIC [...] er-ag ed adult s. Not Available [address] [place], [address] 11/18/2023 10:01:11/18/19 24 11/18/2023 COMPR EHENS NEEL METAB OLIC PANEL total protein 7.5 g/dL 6.4-8. 2 normal Not Available [address] [place], [address] 11/18/2023 10:01:11/18/19 24 11/18/2023 COMPR EHENS NEEL METAB OLIC PANEL albumin 3.6 g/dL 3.4-5. 0 normal Not Available [address] [place], [address] 11/18/2023 10:01:11/18/19 24 11/18/2023 COMPR EHENS NEEL METAB OLIC PANEL bilirubin, total 0.59 mg/dL 0.2-1. 0 normal Not Available [address] [place], [address] 11/18/2023 10:01:11/18/19 24 11/18/2023 COMPR EHENS NEEL METAB OLIC PANEL alk phos 135 U/L 46-116 high Not Available [address] [place], [address] 11/18/2023 10:01:11/18/19 24 11/18/2023 COMPR EHENS NEEL METAB OLIC PANEL sodium 139 mmol/ L 136-14 5 normal Not Available [address] [place], [address] 11/18/2023 10:01:11/18/19 24 11/18/2023 COMPR EHENS NEEL METAB OLIC PANEL potassium 4.2 mmol/ L 3.5-5. 1 normal Not Available [address] [place], [address] 11/18/2023 10:01:26 11/18/19 24 11/18/2023 COMPR EHENS NEEL METAB OLIC PANEL chloride 103 mmol/ L 98-107 normal Not Available [address] [place], [address] 11/18/2023 10:01:11/18/19 24 11/18/2023 COMPR EHENS NEEL METAB OLIC PANEL CO2 29.0 mmol/ L 21.0-3 2.0 normal Not Available [address] [place], [address] 11/18/2023 10:01:26 11/18/19 24 11/18/2023 COMPR EHENS NEEL METAB OLIC PANEL anion gap 7.0 mmol/ L 3-11 normal Not Available [address] [place], [address] 11/18/2023 10:01:26 11/18/19 24 11/18/2023 COMPR EHENS NEEL METAB OLIC PANEL AST 29 U/L 15-37 normal Not Available [facility] [address] [place], [address] 11/18/2023 10:01:26 11/18/19 24 11/18/2023 COMPR EHENS NEEL METAB OLIC PANEL ALT 24 U/L 14-59 normal Not Available [facility] [address] [place], [address] 11/18/2023 10:01:26 11/18/19 24 11/18/2023 LIPID 2 cholesterol 157 mg/dL <200 Not Available [facility] [address] [place], [address] 11/18/2023 10:01:27 11/18/19 24 11/18/2023 LIPID 2 triglyceride 79 mg/dL <150 Not Available [address] [place], [address] 11/18/2023 10:01:27 11/18/19 24 11/18/2023 LIPID 2 HDL cholesterol 78 mg/dL 40-60 Not Available Pk [facility] [address] [place], [address] 11/18/2023 10:01:27 11/18/19 24 11/18/2023 LIPID 2 [...] years or older . Not Available [address] [place], [address] 11/18/2023 10:01:27 05/03/19 24 05/03/2023 ultra sound imagi ng sanjay t Kaiser t Name: Naomi Mott Unit #: [id number] Loc: DI Andrewi ng Provid er: Lalit Mcmahon M.D. Accoun t #: [id number] Status : REG CLI Primar [...] Amado RDCS (AE) Indica tions: Nonisc hemic DISABILITY RATER, defibr illato r in place Conclu pura [...] error, please notify us immedi rebeccaly at [phone] and return the origin al report to us at the addres s above. Thank- you. [facility] [address], [place], [address] 05/03/2023 18:12:07 05/13/19 24 05/13/2023 elect eric robertson am EKG PATIAUSTIN T NAME: Naomi Mott yolanda E UNIT #: [id number] ORDERI [facility] ER: Lalit Mcmahon M.D. ACCOUN T #: [id number] PRIMAR Y CARE PROVID ER: [...] - E-Sign Date: E-Sign Time: 08 abraley [facility] [address] [place], [address] 09/13/2023 15:45:54 06/28/19 24 01/12/2023 x-ray imagi ng repor t Gelyaustin t Name: Naomi Mott Unit #: [id number] Loc: ALIZA Orderi ng Provid er: Karan Freire M.D. Accoun t #: [id number] Status : [facility] er: Janice Pérez [...] error, please notify us immedi ately at [phone] and return the origin al report to us at the addres s above. Thank- you. rod [facility] [address], [place], [address] 06/29/2023 07:24:17 11/22/19 24 04/16/2022 bone densi [...] Patien t Name: Naomi Mott Unit #: [id number] Loc: DI Orderi ng Provid er: Janice Pérez M.D. Accoun t #: [id number] Status : REG CLI Primar y Care [...] error, please notify us immedi ately at [phone] and return the origin al report to us at the addres s above. Thank- you. [facility] [address], [place], [address] 12/09/2023 05:58:02 01/17/2001/17/2024 x-ray imagi ng sanjay t [facility] t Name: Naomi Mott Unit #: [id number] Loc: DIORS Orderi ng Provid er: Karan Freire M.D. Accoun t #: [id number] Status : PRE CLI Primar y [...] the addres s above. Thank- you. INTERFACE [facility] [address] [place] [address] Dr, [place], [address] 01/17/2024 11:56:16 Result Notes None recorded. Problems Name Problem SNOMED Code Status Onset Date Resolution Date Notes Provider Name and Address Organization Details Recorded Time Asthma 784151867 Active 200204/14/19 22 - Comments only - Lolly Cortez MD - Not too much of an issue recently . She does keep albutero l inhaler availabl e if needed. Problem Code: 493.90; Problem Code Type: ICD-9; Not Available [facility] 3 04:01:51 Atypical glandula r cells on cervical Papanico laou smear 765101185 Active 2007 Problem Code: 795.00; Problem Code Type: ICD-9; Not Available [facility] 3 04:01:51 Dizzines s and giddines s 312356653 Active 201404/14/19 22 - Comments only - Lolly Cortez MD - , Intermit tent. She has learned to deal with it using the Jd's maneuver . She will call if any signific ant worsenin g. Problem Code: R42; Problem Code Type: ICD-10; Not Available [facility] 3 04:01:52 Essalma delia l hyperten pura 35783670 Active 201401/12/20 22 - Comments only - Lolly Cortez MD - Blood pressure well controll ed with the lisinopr il and Toprol. Problem Code: I10; Problem Code Type: ICD-10; Not Available [facility] 3 04:01:52 Adult health examinat ion Active 201504/16/19 23 - Comments only - Lolly Cortez MD - UTD with mammo, has a DEXA schedule d ( dx of osteopor osis), will check an A1c. Problem Code: Z00.00; Problem Code Type: ICD-10; Not Available [facility] 3 04:01:52 Disorder of skin and/or subcutan eous tissue 47598630 Active 201509/17/19 16 - Comments only - Lolly Cortez MD - the lesions on the buttucks appear to have been possible boils that are now healing vs atopic rxn resolvin g. At this point no tx needed. If worsenin g/recurr ing she will call. I don't believe these are related to rubbing while walking Problem Code: L98.9; Problem Code Type: ICD-10; Not Available [facility] 3 04:01:52 Pain in right hip joint 87136077833 9102 Completed 201512/02/2022 Problem Code: M25.551; Problem Code Type: ICD-10; Not Available [facility] 3 04:01:52 Onychomy cosis due to dermatop hyte 250402462 Active 201609/23/19 17 - Comments only - Lolly Cortez MD - she is going to contact podiatry to find out if they have any other topical txs that might work. She is not interest ed in systemic tx Problem Code: B35.1; Problem Code Type: ICD-10; Not Available [facility] 3 04:01:52 Hearing loss of right ear 705901451 Completed 201712/10/2017 11/27/19 18 - Comments only - Naseem Gil PA-C - Cerumino sis treated in-offic e today. If hearing fails to be fully restored over the course of the weekend, will consider for ENT refer for formal audiolog y assessme nt. Problem Code: H91.91; Problem Code Type: ICD-10; Not Available [facility] 3 04:01:52 Abnormal weight gain 590519551 Active 2018 Problem Code: R63.5; Problem Code Type: ICD-10; Not Available [facility] 3 04:01:53 Disorder of hip joint 936689989 Active 201801/12/20 22 - Comments only - Lolly Cortez MD - ,rt. For which she would like a total hip replacem ent. 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 She is trying to continue being as mobile as she can comforta silva. Problem Code: M12.859; Problem Code Type: ICD-10; Not Available [facility] 3 04:01:53 Acute vaginiti s 97644469 Completed 201801/04/2019 12/22/19 19 - Comments only - Naseem Gil PA-C - Will await resutls of today's collecte d VPS to determin e indicati on for further treatmen t. Problem Code: N76.0; Problem Code Type: ICD-10; Not Available [facility] 3 04:01:53 Intertri go 39733780 Completed 201801/04/2019 12/22/19 19 - Comments only - Naseem Gil PA-C - Patient encourag ed to keep skin folds as clean and dry as possible to avoid reactiva tion (suggest ed environmental studies department chair after bathing) . Addition ally, could consider to use OTC DESITIN for acute skin healing. Problem Code: L30.4; Problem Code Type: ICD-10; Not Available [facility] 3 04:01:53 Pre-surg cecilia evaluati on Completed 201801/23/2019 01/10/20 19 - Comments only - Naseem Gil PA-C - Today's EKG shows stable LBBB (compare d to study 10/19/14) with NSR at 69bpm. Patient to f/u for pre-oper ative laborato ry testing and anesthes ia consult as schedule d 01/17/19 . Problem Code: Z01.818; Problem Code Type: ICD-10; Not Available [facility] 3 04:01:53 Hip joint prosthes is present 870745791 Active 2018 Problem Code: Z96.642; Problem Code Type: ICD-10; Not Available [facility] 3 04:01:53 Dyspnea 687070926 Completed 201903/27/2019 03/13/19 20 - Comments only - aNseem Gil PA-C - Suspect some componen t of RAD. Assuming today's laboaror y testing returns as benign, patient agrees to trial RXd VENTOLIN HFA 2 puffs Q4-6hr PRN as manageme nt. We will plan to touch base with patient by phone on F 03/17/19 for status update. Problem Code: R06.02; Problem Code Type: ICD-10; Not Available [facility] 3 04:01:54 Edema 617050277 Completed 201906/21/2019 06/07/19 20 - Comments only - Naseem Gil PA-C - Patient reassure d nothing concerni ng on today's PX to raise suspicio n for DVT. Suspect minor calf muscle strain. OK to continue to use compress ion stocking s for symtpoma tic relief and consider calf stretche s. F/U PRN. Problem Code: R60.9; Problem Code Type: ICD-10; Not Available [facility] 3 04:01:54 Headache 24370627 Active 2020 Problem Code: R51.9; Problem Code Type: ICD-10; Not Available [facility] 3 04:01:54 Guttate psoriasi s 85754954 Active 202004/16/19 23 - Comments only - Lolly Cortez MD - being followed by karolyn mercadogodfrey awad under reasonab le control with the UV tx and prn clobetas ol cream Problem Code: L40.4; Problem Code Type: ICD-10; Not Available [facility] 3 04:01:54 Stool finding 301882882 Active 2021 Problem Code: R19.5; Problem Code Type: ICD-10; Not Available [facility] 3 04:01:54 Speciali zed medical examinat ion Active 2021 Problem Code: Z01.89; Problem Code Type: ICD-10; Not Available [facility] 3 04:01:54 Edema 280356483 Active 2021 Problem Code: R60.9; Problem Code Type: ICD-10; Not Available [facility] 3 04:01:55 Screenin g mammogra phy Active 2021 Problem Code: Z12.31; Problem Code Type: ICD-10; Not Available [facility] 3 04:01:55 Abnormal finding on evaluati on procedur e 326017081 Active 2021 Problem Code: R89.9; Problem Code Type: ICD-10; Not Available [facility] 3 04:01:55 Dyspnea 670601478 Active 2021 Problem Code: R06.02; Problem Code Type: ICD-10; Not Available [facility] 3 04:01:55 Cardiomy opathy 73305121 Active 202109/05/19 23 - Comments only - Lolly Cortez MD - Clinical ly remaingodfrey awad stable on the lisinopr il, furosemi de 20 mg daily, Jardianc e, Toprol, rosuvast atin, aspirin. ICD/pace maker in place. Followin ritesh with cardiolo gy. She is walking/ exercisi ng regularl y. Problem Code: I42.9; Problem Code Type: ICD-10; Not Available [facility] 3 04:01:55 Heart failure 39591431 Active 2021 Problem Code: I50.9; Problem Code Type: ICD-10; Not Available [facility] 3 04:01:56 Family history of breast cancer 297281033 Active 2021 Problem Code: Z80.3; Problem Code Type: ICD-10; Not Available [facility] 3 04:01:56 Burn 535860502 Active 202101/12/20 22 - Comments only - Lolly Cortez MD - Healing slowly, no evidence of infectio n. If she has any further question s regardin g this she will let us know. Problem Code: T30.0; Problem Code Type: ICD-10; Not Available [facility] 3 04:01:56 Senile osteopor osis 04730888 Active 202101/12/20 22 - Comments only - Lolly Cortez MD - Due for a repeat DEXA scan. Ordered. She does take an over-the -counter vitamin D suppleme nt I believe. Problem Code: M81.0; Problem Code Type: ICD-10; Not Available [facility] 3 04:01:56 Hyperlip idemia 32740589 Active 202204/16/19 23 - Comments only - Lolly Cortez MD - will check LFTs, CPK, on rosuvast atin 5mg daily which has brought her lipids into goal range. Problem Code: E78.5; Problem Code Type: ICD-10; Not Available [facility] 3 04:01:56 Adjustme nt disorder 64913857 Active 2022 Problem Code: F43.20; Problem Code Type: ICD-10; Not Available [facility] 3 04:01:56 Dysuria 39003722 Active 2022 Problem Code: R30.9; Problem Code Type: ICD-10; Not Available [facility] 3 04:01:57 Itching of skin 807173245 Active 2022 Problem Code: L29.8; Problem Code Type: ICD-10; Not Available [facility] 3 04:01:57 Automati c implanta ble cardiac defibril lator in situ 701844524 Active 2022 Problem Code: Z95.810; Problem Code Type: ICD-10; Not Available [facility] 3 04:01:57 Glycosur ia 75652537 Active 202209/05/19 23 - Comments only - Lolly Cortez MD - , No prior diagnosi s of diabetes . She is developi ng diabetes that could be number perineal symptoms . 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 959027720 Active 202209/05/19 23 - Comments only - [...] N90.89; Problem Code Type: ICD-10; Not Available [facility] 3 04:01:57 Allergic contact dermatit is 969382844 Completed 202012/02/2022 Problem Code: L23.9; Problem Code Type: ICD-10; Not Available [facility] 3 04:02:02 Essentia l hyperten pura 89466106 Completed 200107/25/2015 Problem Code: 401.9; Problem Code Type: ICD-9; Not Available [facility] 3 04:02:03 Polyp of colon 61272530 Completed 201006/05/2021 Problem Code: K63.5; Problem Code Type: ICD-10; Not Available [facility] 3 04:02:03 History of vertigo 037740727 Completed 201012/02/2022 01/11/20 15 - Improved - Lolly Cortez MD - she will continue with Jd's manoever PRN and call if worsenin g/nothin g helping Not Available [facility] 3 04:02:04 Acute sinusiti s 87204880 Completed 201912/16/2020 Problem Code: J01.90; Problem Code Type: ICD-10; Not Available [facility] 3 04:02:05 Pain of right lower leg 72573697557 9108 Completed 202101/11/2022 Problem Code: M79.661; Problem Code Type: ICD-10; Not Available [facility] 3 04:02:06 Hyperlip idemia 01801908 Completed 200910/19/2017 Not Available [facility] 3 04:02:07 Dizzines s and giddines s 395329584 Completed 201408/14/2019 Problem Code: R42; Problem Code Type: ICD-10; Not Available [facility] 3 04:02:07 Hyperten sive disorder 69184609 Completed 201011/03/2018 Not Available [facility] 3 04:02:09 Diarrhea 08684160 Completed 201610/19/2017 Problem Code: R19.7; Problem Code Type: ICD-10; Not Available [facility] 3 04:02:10 Anemia 080134025 Completed 201901/11/2022 Problem Code: D64.9; Problem Code Type: ICD-10; Not Available [facility] 3 04:02:10 Speculator - lesion 620522752 Active 2022 Problem Code: L84; Problem Code Type: ICD-10; Not Available [facility] 4 05:37:51 Foot callus 101751394 Active [address], [place], [address] , [facility]. 4 11:29:32 Onychomy cosis 098268540 Active [address], [place], [address] , [facility] 4 11:29:44 Vertigo 395084963 Active [address], [facility] [address] [place] [address] 4 13:20:57 Impacted cerumen of bilatera l ears 13566536672 38484 Active [address], [facility] [address] [place] [address] 4 13:21:03 Prediabe tish 258530301 Active [address], [facility] [address] [place] [address] 4 09:24:37 Notes:*Problem Name: Colonos copy 2006 - Hyperplastic Polyp *ICD-10 Codes: *Problem Status: inactive *Comments: *Note Date: 04/29/2010 *Problem Name: Rt Breast Bx 2013 - Adenosis *ICD-10 Codes: *Problem Status: active *Comments: *Note Date: 08/01/2013 Problem Notes None recorded. Procedures Surgical History Date Name Laterality Status Provider Name and Address Organization Details Recorded Time 4 Cerumen Removal completed NATHAN HERNA[address]DEZ Dr, [facility] [phone] [place] [address] 09/01/2023 13:52:38 3 total replacement of right hip joint completed Cornelia Lizarraga RN [facility] 03/31/2023 17:11:24 Imaging Results Imaging Date Name Status LastModified by Organization Details LastModified Time 05/03/2023 ultrasound imaging report completed rod [address] [place], [address] 05/03/2023 18:12:07 05/13/2023 electrocardiogram completed [email or web address] [place], [address] 09/13/2023 15:45:54 01/12/2023 [facility] imaging [email or web address] [address] [place], [address] 06/29/2023 07:24:17 04/16/2022 bone density completed Information [...] 11/22/2023 06:42:56 12/08/2023 mammography imaging report completed [address] [place], [address] 12/09/2023 05:58:02 01/17/2024 x-ray imaging report completed [address] [place], [address] 01/17/2024 11:56:16 Procedure Notes None recorded. Medical Equipment None Reported. Allergies Allergen ID Allergen Name Allergen Category Reaction Reaction Severity Criticality Documentation Date Start Date Code Code System Note Provider Name and Address Organization Details Recorded Time 66168 sulfadiaz ine medicatio n tachycard ia mild Not available 01/15/20232001 19758 RxNorm Tachy cardi a Not Available [facility] 16:22:29 Medications Name Sig Start Date [...] % 96 % 65 /min 38.7 kg/m2 50398.8 3 g 128 mm[Hg] 72 mm[Hg] Davey Allen MA [facility] 4 10:27:29 Date Recorded Body height Body mass index (BMI) Body weight Body temperature Respiratory rate Oxygen saturation Oxygen saturation in Arterial blood by Pulse oximetry Heart rate Systolic blood pressure Diastolic blood pressure Provider Name and Address Organization Details Last Updated DateTime 4 159.385 cm 38.7 kg/m2 26349.8 2 g 97.1 [degF] 17 /min 95 % 95 % 60 /min 139 mm[Hg] 69 mm[Hg] Vonda Fields RN [facility] 4 12:25:13 Date Recorded Body height Body mass index (BMI) Body weight Oxygen saturation Oxygen saturation in Arterial blood by Pulse oximetry Heart rate Respiratory rate Systolic blood pressure Diastolic blood pressure Provider Name and Address Organization Details Last Updated DateTime 4 159.385 cm 40.4 kg/m2 948747. 88 g 99 % 99 % 63 /min 18 /min 136 mm[Hg] 68 mm[Hg] Davey Allen MA [facility] 4 07:36:54 Social History Question Answer Notes LastModified by Organizat ion Details LastModified Time Tobacco Smoking Status Never Smoker Davey Allen MA null, [facility] 05/21/2023 10:57:21 Would You Say That, In General, Your Health Is Very Good [email or web address] Information not available 05/21/2023 How Often Does Anyone, Including Family, Physically Hurt You? Never [email or web address] Information not available 05/21/2023 How Often Does Anyone, Including Family, Insult Or Talk Down To You? Never [email or web address] Information no t available 05/21/2023 How Often Does Anyone, Including Family, Threaten You With Harm? Never [email or web address] Information not available 05/21/2023 How Often Does Anyone, Including Family, Scream Or Curse At You? Never [email or web address] Information not available 05/21/2023 Within The Past 12 Months, You Worried That Your Food Would Run Out Before You Got Money To Buy More. Never True [email or web address] Information n ot available 05/21/2023 Within The Past 12 Months, The Food You Bought Just Didn't Last And You Didn't Have Money To Get More. Never True [email or web address] Information n ot available 05/21/2023 How Hard Is It For You To Pay For The Very Basics Like Food, Housing, Medical Care, And Heating? Would You Say It Is: Not Hard At All [email or web address] Information not available 05/21/2023 In The Past 12 Months, Has Lack Of Reliable Transportation Kept You From Medical Appointments, Meetings, Work Or From Getting Things Needed For Daily Living? No [email or web address] Information not available 05/21/2023 What Is Your Housing Situation Today? I Have Housing. [email or web address] Information not available 05/21/2023 How Often In The Past Year Have You Used Marijuana (including Smoking, Vaping, Dabbing, Or Edibles)? Never [email or web address] Information not available 05/21/2023 How Often In The Past Year Have You Used Prescription Medications That Were Not Prescribed To You? Never [email or web address] Information n ot available 05/21/2023 How Often In The Past Year Have You Taken Your Own Prescription Medication More Than The Way It Was Prescribed Or For Different Reasons Than Its Intended Purpose? Never [email or web address] Information no t available 05/21/2023 How Often In The Past Year Have You Used Other Drugs (for Example, Heroin, Cocaine, Meth, Salvia, Inhalants)? Never [email or web address] Information not available 05/21/2023 Have You Ever Used IV Drugs? No enqervbt24 Information not available 05/21/2023 What Matters Most To You? Staying Healthy, Keeping Active. Getting Exercise And Losing Some Weight Information not available 05/21/2023 During The Past Four Weeks Has Your Physical And Emotional Health Limited Your Social Activities With Family And Friends, Neighbors, Or Groups? Not At All [email or web address] Information not available 05/21/2023 During The Past Four Weeks, Was Someone Available To Help You If You Needed And Wanted Help? (For Example, If You [place] Very Nervous, Lonely, Or Blue; Got Sick And Had To Stay In Bed; Needed Someone To Talk To; Needed Help With Daily Chores; Or Needed Help Just Taking Care Of Yourself.) No- Not At All [email or web address] Information n ot available 05/21/2023 During The Past Four Weeks, What Was The Hardest Physical Activity You Could Do For At Least 2 Minutes? Moderate [email or web address] Information not available 05/21/2023 Can You Get To Places Out Of Walking Distance Without Help? (For Example, Can You Travel Alone On Buses Or Taxis, Or Drive Your Own Car?) Yes [email or web address] Information not available 05/21/2023 Can You Go Shopping For Groceries Or Clothes Without Someone? s Help? Yes [email or web address] Information not available 05/21/2023 Can You Prepare Your Own Meals? Yes [email or web address] Information not available 05/21/2023 Can You Do Your Housework Without Help? Yes [email or web address] Information not available 05/21/2023 Because Of Any Health Problems, Do You Need The Help Of Another Person With Your Personal Care Needs Such As Eating, Bathing, Dressing, Or Getting Around The House? No Information not available 05/21/2023 Can You Handle Your Own Money Without Help? Yes [email or web address] Information not available 05/21/2023 Are You Having Difficulties Driving Your Car? No eicffglc77 Information no t available 05/21/2023 Do You Always Fasten Your Seat Belt When You Are In A Car? Yes- Usually [email or web address] Information not available 05/21/2023 How Often During The Past Four Weeks Have You Been Bothered By Any Of The Following Problems? Falling Or Dizzy When Standing Up? Never [email or web address] Information not available 05/21/2023 Sexual Problems? Never [email or web address] Informat ion not available 05/21/2023 Trouble Eating Well? Sometimes wdnozbhq00 Information not available 05/21/2023 Teeth Or Denture Problems? Sometimes Information not available 05/21/2023 Problems Using The Telephone? Never suuueqqq76 Information not available 05/21/2023 Tiredness Or Fatigue? Sometimes [email or web address] Information not available 05/21/2023 Have You Had 2 Or More Falls Or Sustained An Injury With A Fall In The Last Year? No [email or web address] Information no t available 05/21/2023 Do You Have Difficulty With Walking Or Balance? No [email or web address] Information not available 05/21/2023 Do You Currently Use A Hearing Device? No ocigcwzx03 Information not available 05/21/2023 Do You Currently Have Any Trouble With Your Vision? Yes sozliyuw44 Information no t available 05/21/2023 Do You Exercise For About 20 Minutes Three Or More Days A Week? Yes- Most Of The Time [email or web address] Information not available 05/21/2023 Are There Any Safety Concerns In Your Home (see Attached [facility] Pamphlet)? No [email or web address] Information not available 05/21/2023 How Often Do You Have Trouble Taking Medicines The Way You Have Been Told To Take Them? I Always Take Them As Prescribed ateukbhd33 Information not available 05/21/2023 How Confident Are You That You Can Control And Manage Most Of Your Health Problems? Very Confident Information not available 05/21/2023 Do You Currently Have Any Difficulty With Your Hearing? No [email or web address] Information not available 05/21/2023 Date Of Most Recent SBINS 05/21/2023 [email or web address] Information not available 05/21/2023 What Was The Date Of Your Most Recent Tobacco Screening? 09/01/2023 Information not available 09/01/2023 Has Tobacco Cessation Counseling Been Provided? Yes Information not available 09/01/2023 On What Date Was Tobacco Cessation Counseling Provided? 09/01/2023 Information not available 09/01/2023 Do You Or Have You Ever Used Any Other Forms Of Tobacco Or Nicotine? No [email or web address] Information not available 05/21/2023 Sex: Female Functional [...] preservative free, adsorbed 9 completed Not Available [facility] 01/15/2023 04:53:39 Tdap 8 completed Not Available [facility] 01/15/2023 04:53:39 zoster live 3 completed Not Available [facility] 01/15/2023 04:53:40 Pneumococcal conjugate PCV 13 6 completed Not Available [facility] 01/15/2023 04:53:40 Influenza, high-dose, trivalent, PF 8 completed Not Available [facility] 01/15/2023 04:53:41 Td(adult) unspecified formulation 3 completed Not Available [facility] 01/15/2023 04:53:41 Influenza, split virus, trivalent, preservative 6 completed Not Available [facility] 01/15/2023 04:53:41 Influenza, split virus, trivalent, preservative 5 completed Not Available [facility] 01/15/2023 04:53:41 Influenza, split virus, quadrivalent, PF 9 completed Not Available [facility] 01/15/2023 04:53:41 zoster recombinant 9 completed Not Available [facility] 01/15/2023 04:53:42 zoster recombinant 8 completed Not Available [facility] 01/15/2023 04:53:42 Influenza, high-dose, quadrivalent, PF 1 completed Not Available [facility] 01/15/2023 04:53:43 Influenza, high-dose, quadrivalent, PF 0 completed Not Available [facility] 01/15/2023 04:53:43 Influenza, high-dose, quadrivalent, PF 2 completed Not Available [facility] 01/15/2023 04:53:43 COVID-19, mRNA, LNP-S, PF, 100 mcg/0.5mL dose or 50 mcg/0.25mL dose 2 completed Not Available [facility] 01/15/2023 04:53:43 COVID-19 vaccine, vector-nr, rS-Ad26, PF, 0.5 mL 1 completed Not Available [facility] 01/15/2023 04:53:44 SARS-COV-2 (COVID-19) vaccine, UNSPECIFIED 1 completed Not Available [facility] 01/15/2023 04:53:44 SARS-COV-2 (COVID-19) vaccine, UNSPECIFIED 1 completed Not Available [facility] 01/15/2023 04:53:44 pneumococcal polysaccharide PPV23 5 completed Not Available [facility] 01/15/2023 04:53:45 Hep B, unspecified formulation 4 completed Not Available [facility] 01/15/2023 04:53:45 Hep B, unspecified formulation 3 completed Not Available [facility] 01/15/2023 04:53:46 Hep B, unspecified formulation 3 completed Not Available [facility] 01/15/2023 04:53:46 influenza, unspecified formulation 0 completed Not Available [facility] 01/15/2023 04:53:47 influenza, unspecified formulation 3 completed Not Available [facility] 01/15/2023 04:53:47 influenza, unspecified formulation 9 completed Not Available [facility] 01/15/2023 04:53:47 influenza, unspecified formulation 1 completed Not Available [facility] 01/15/2023 04:53:47 influenza, unspecified formulation 7 completed Not Available [facility] 01/15/2023 04:53:48 influenza, unspecified formulation 4 completed Not Available [facility] 01/15/2023 04:53:48 influenza, unspecified formulation 8 completed Not Available [facility] 01/15/2023 04:53:48 influenza, unspecified formulation 2 completed Not Available [facility] 01/15/2023 04:53:48 Influenza, high-dose, quadrivalent, PF 3 completed Not Available [facility] 03/19/2023 05:33:03 COVID-19, mRNA, LNP-S, PF, herminio-sucrose, 30 mcg/0.3 mL 3 completed Not Available [facility] 03/19/2023 05:33:03 COVID-19, mRNA, LNP-S, bivalent, PF, 50 mcg/0.5 mL or 25mcg/0.25 mL dose 4 completed DENYS Bauer, [facility] 12/20/2023 15:23:33 Respiratory syncytial virus (RSV) vaccine, unspecified 4 completed DENYS Bauer, [facility] 12/20/2023 15:24:29 influenza, unspecified formulation 4 completed DENYS Bauer, [facility] 12/20/2023 15:25:14 Past Encounters Encounter ID Performer Location Encounter Start Date Encounter Closed Date Diagnosis/Indication Diagnosis SNOMED-CT Code Diagnosis ICD10 Code Diagnosis Note [id number] LOLLY CORTEZ MD [facility] [address] [place] [address] 05/21/2023 10:03:54 05/21/2023 11:37:49 Onychomycosis 427906410 B35.1 There is bothering her more, more difficult to trim her toenails. She also has a callus that she would like looked with podiatry. Asthma 331796611 J45.90 9 Rare use of albuterol, she will continue the same Cardiomyopathy 36549421 I10 Clinically remaining stable, has had significan [...] well-contr olled. Disorder of hip joint 42 2374113 M12.859 Doing well status post now bilateral total hip replacemen ts. 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 She is working on exercises in addition to walking. Mammo will be due in the fall. Up-to-date with colonoscop y. [id number] [address],[facility] [address] [place] [address] 09/01/2023 10:23:16 09/01/2023 13:28:10 Vertigo 809369096 R42 Patient has been experienci ng vertigo [...] on. Impacted c erumen of bilateral ears 8636160163 274521 H61.23 Ear lavage performed with complete resolution and no signs of infection. [id number] LOLLY CORTEZ MD [address] [address] 11/26/2023 07:26:08 11/26/2023 08:10:59 Screening mammography 70953900 Z12.31 Adjustment disorder 1722 6007 F43.20 , Still grieving the loss of her about a year and a half ago. She still finds it hard being in the house alone. Her kids and grandkids have been with a good visiting regularly which she appreciate s. Asthma 613537301 J45.90 9 Rare use of albuterol, she will continue the same Essential hypertension 10334167 I10 Under reasonably good control, see cardiomyop athy below Guttate psoriasis 142955 00 L40.4 , Following dermatolog y. Will be starting photothera py in addition to the clobetasol once the colder weather arrives. Has been just trying to get some sun exposure on her skin over the summer. Currently psoriasis is not too bad Cardiomyopathy 06079116 I10 Clinically remaining stable, has had significan [...] okay continuing to take it. Up-to-date with [facility]. Creatinine remains a little elevated as is BUN, although these have improved. Encouraged increased fluid intake Hyperlipidemia 99530261 E78.5 on rosuvastat in, lipids well-contr olled, normal LFTs Prediabetes 348176679 R7 3.03 And obesity. A1c 5.9, This [...] continue doing that. She has met with [facility]. Health Concerns Section Related Observation LastModified by Organization Detai ls LastModified Time None Recorded Concern Status LastModified by Organization Details LastModified Time None Recorded Advance Directives Directive None Recorded Payers Encounter Date Sequence Insurance Name Policy Number Policy Lema Covered Member ID Lema Member ID Guarantor Name 05/21/2023 1 [place] - [place]) [id number] Luna Barber LunaCloverly [id number] Luna Lunaslin 09/01/2023 1 [place]) [id number] Luna Lunaslin [id number] Luna Lunaslin 11/26/2023 1 [place] - [place]) [id number] Luna Lunaslin [id number] Luna Mott Notes Date Note Type Note Provider Name and Address Organization Details Recorded Time 05/21/2023 text/html Thais here today for an annual wellness exam LOLLY CORTEZ MD [address], [place], [address], [facility]. 05/24/2023 18:32:35 09/01/2023 text/html Luna is a [...] it. JESSICA INGRAM PA-C [address], [place], [address], [facility]. 09/01/2023 13:55:07 11/26/2023 text/html Thais here today for follow-up of cardiomyopathy, obesity LOLLY CORTEZ MD [address], [place], [address], [facility]. 11/28/2023 09:26:44 OBGyn Episode No OBEpisode recorded.
--- OUTSIDE RECORDS SUMMARY | 2024-04-05 11:17 | XMS_ITS | Encounter Summary ---
Author Organization [facility] Address [address] [place] [address] Care Team Providers Care Customer Leader Name Role Phone Lolly Oliveira MD Primary Care Provider [phone] Encounter Details Date Type Department Care Team (Late st Contact Info) Description 06/16/2012 Results Only [facility] Laboratory Services - [facility] ([facility]) [address] [place], [place] [id number] Lolly Oliveira MD [address] [place], [place] [phone] Social History Tobacco Use Types Packs/Day Years [...] ? JING ALVARENGA ? Accession #: ? [id number] : ? 1950 (Age: 61) ??F ?Collect [...] ORDERABLES Final Resu lt [facility] [address] [place] [address] documented in this encounter Visit Diagnoses Not on filedocumented in this encounter Care Teams Customer Leader Relationship Specialty Start Date End Date Lolly Oliveira MD [address] [place] [address] PCP - General 11/13/08 documented as of this encounter
--- OUTSIDE RECORDS SUMMARY | 2024-04-05 11:17 | XMS_ITS | Encounter Summary ---
Author Organization [facility] Address [address] [place] [address] Care Team Providers Care Rent Control Office Manager Name Role Phone Lolly Oliveira MD Primary Care Provider [phone] Encounter Details Date Type Department Care Team (Late st Contact Info) Description 04/17/2005 Results Only [facility] conversion [address] [place] [address] Lolly Oliveira MD [address] [place], [place] [id number] Social History Tobacco Use Types Packs/Day Years [...] ? JING ALVARENGA ? Accession #: ? [id number] : ? 1950 (Age: 54) ??F ?Collect Date: ? 04/17/2005 Location: ? [facility] ? Receive Date: ? 04/21/2005 Provider: ?LOLLY OLIVEIRA MD Copy to: ? Specimen/Source: ?ThinPrep Pap Test, Cervix/Endocervix, processed on [employer] ThinPrep Imaging System, with manual evaluation [...] Final Resu lt [facility] [address] [place] [address] documented in this encounter Visit Diagnoses Not on filedocumented in this encounter Care Teams Rent Control Office Manager Relationship Specialty Start Date End Date Lolly Oliveira MD [address] [place] [address] PCP - General 11/13/08 documented as of this encounter
--- OUTSIDE RECORDS SUMMARY | 2024-04-05 11:17 | XMS_ITS | Encounter Summary ---
Author Organization [facility] Address [address] [place] [address] Care Team Providers Care Community Services Manager Name Role Phone Unavailable Primary Care Provider Unavailabl e Encounter Details Date Type Department Care Team (Late st Contact Info) Description 11/07/2008 Orders Only [facility] Laboratory Services - [facility] ([facility]) [address] [place] [address] Kenneth Parker MD [address] [place] [address] Social History Tobacco Use Types Packs/Day Years [...] ? JING ALVARENGA ? Accession #: ? [id number] ? : ? 1950 (Age: 58) ??F [...] ORDERABLES Final Resu lt [facility] [address] [place] [address] documented in this encounter Visit Diagnoses Not on filedocumented in this encounter
--- OUTSIDE RECORDS SUMMARY | 2024-04-05 11:17 | XMS_ITS | Clinical Summary ---
Author Organization [facility] Address [address] [place] [address] Care Team Providers Care Levelman Name Role Phone Lolly Oliveira MD Primary Care Provider [phone] Social History Tobacco Use Types Packs/Day Years [...] 08/10/2023 COVID-19 Vaccine (2023- season) 2023 Insurance [facility] MEDIC[facility] Care Teams Levelman Relationship Specialty Start Date End Date Berrian, Lolly, MD [address] [place] [address] PCP - General 11/13/08
--- OUTSIDE RECORDS SUMMARY | 2024-04-05 11:17 | XMS_ITS | Referral Summary ---
Author Organization [facility] Address [address] [place] [address] Care Team Providers Care Systems Project Manager Name Role Phone Lolly Oliveira MD Primary Care Provider [phone] Social History Tobacco Use Types Packs/Day Years Used Date Smoking Tobacco: Never Assessed Comments Unknown Sex and Gender Information Value Date Recorded Sex Assigned at Not on file Legal Sex Female 18:31 EST Gender Identity Not on file Sexual Orientation Not on file Plan of Treatment Not on file Insurance [facility] MEDIC[facility] Care Teams Systems Project Manager Relationship Specialty Start Date End Date Lolly Oliveira MD [address] [place] [address] PCP - General 11/13/08
--- OUTSIDE RECORDS SUMMARY | 2024-04-05 11:17 | XMS_ITS | Encounter Summary ---
Author Organization [facility] Address [address] [place] [address] Care Team Providers Care Lidding Machine Operator Name Role Phone Lolly Oliveira MD Primary Care Provider [phone] Encounter Details Date Type Department Care Team (Late st Contact Info) Description 03/21/2019 Lab Requisition [facility] Pathology & Laboratory Medicine - [address] [address] Unknown, Provider, Social History Tobacco Use Types [...] 211 - 911 pg/mL 03/22/2019 11:52 EST [facility] Blood VENOUS BLOOD / Unknown 03/16/2019 9:25 EST 03/21/2019 21:35 EST us Provider Unknown CHEMISTRY & BLOOD GAS ORDERA BLES Final Result [facility] [address] [place] [address] documented in this encounter Visit Diagnoses Not on filedocumented in this encounter Care Teams Lidding Machine Operator Relationship Specialty Start Date End Date Lolly Oliveira MD [address] [place] [address] PCP - General 11/13/08 documented as of this encounter
--- OUTSIDE RECORDS SUMMARY | 2024-04-05 11:17 | XMS_ITS | Encounter Summary ---
Author Organization [facility] Address [address] [place] [address] Care Team Providers Care Contracts Representative Name Role Phone Lolly Oliveira MD Primary Care Provider [phone] Encounter Details Date Type Department Care Team (Late st Contact Info) Description 05/02/2004 Results Only [facility] conversion [address] [place] [address] Lolly Oliveira MD [address] [place], [place] [phone] Social History Tobacco Use Types Packs/Day Years [...] 68. [facility] Report Status Final [id number] [facility] 05/02/2004 9:32 EST 05/10/2004 9:32 EST us Lolly Oliveira MD MICROBIOLOGY - GENERAL ORDERABL ES Final Result [facility] [address] [place] [address] * CYTOPATHOLOGY (05/02/2004 0:00 EST) Pathology Report: CYTOPATHOLOGY REPORT Reports generated via electronic interface contain original data; however they are lacking the format of the original report. Caution should be taken when reading/interpreti ng unformatted reports. Name: ? JING ALVARENGA ? Accession #: ? [id number] : ? 1950 (Age: 53) ??F ?Collect [...] Final Resu lt Performing Organization Address City/State/[facility] Co de Phone Number [facility] [address] [place] [address] documented in this encounter Visit Diagnoses Not on filedocumented in this encounter Care Teams Contracts Representative Relationship Specialty Start Date End Date Lolly Oliveira MD [address] [place] [address] PCP - General 11/13/08 documented as of this encounter
--- OUTSIDE RECORDS SUMMARY | 2024-04-05 11:17 | XMS_ITS | Encounter Summary ---
Author Organization [facility] Address [address] [place] [address] Care Team Providers Care Letter Stamping Machine Operator Name Role Phone Lolly Oliveira MD Primary Care Provider [phone] Encounter Details Date Type Department Care Team (Late st Contact Info) Description 04/12/2007 Results Only [facility] conversion [address] [place] [address] Lolly Oliveira MD [address] [place], [place] [id number] Social History Tobacco Use Types Packs/Day Years [...] ? JING ALVARENGA ? Accession #: ? [id number] : ? 1950 (Age: 56) ??F ?Collect Date: ? 04/12/2007 Location: ? [facility] ? Receive Date: ? 04/13/2007 Provider: ?LOLLY OLIVEIRA MD Copy to: ? Specimen/Source: ?ThinPrep Pap Test, Cervix/Endocervix, processed on [employer] ThinPrep Imaging System, with manual evaluation Last [...] ORDERABLES Final Resu lt [facility] [address] [place] [address] documented in this encounter Visit Diagnoses Not on filedocumented in this encounter Care Teams Letter Stamping Machine Operator Relationship Specialty Start Date End Date Lolly Oliveira MD [address] [place] [address] PCP - General 11/13/08 documented as of this encounter
--- OUTSIDE RECORDS SUMMARY | 2024-04-05 11:17 | XMS_ITS | Encounter Summary ---
Author Organization [facility] Address [address] [place] [address] Care Team Providers Care Store Leader Name Role Phone Lolly Oliveira MD Primary Care Provider [phone] Encounter Details Date Type Department Care Team (Late st Contact Info) Description 11/13/2020 Lab Requisition [facility] Pathology & Laboratory Medicine - [address] [address] Outr Resulting Lab, Provider Social History Tobacco [...] MICROBIOLOGY - GENER AL ORDERABLES Final Result [facility] [address] [place] [address] * COVID-19 TESTING (11/13/2020 7:30 EDT) COVID-19 rt-PCR Result Negative Negative 11/14/2020 11:46 EDT [facility] Comment: This test [...] performed using the med SARS-CoV-2 assay ([employer] on the Med 6800 System Performing Lab Med [address] [facility] Lab 11/14/2020 11:46 EDT [facility] Swab 11/13/2020 7:30 EDT 11/13/2020 20:57 EDT us Provider Outr Resulting Lab MICROBIOLOGY - GENER AL ORDERABLES Final Result Performing Organization Address [facility] Co de Phone Number [facility] [address] [place] [address] documented in this encounter Visit Diagnoses Not on filedocumented in this encounter Care Teams Store Leader Relationship Specialty Start Date End Date Lolly Oliveira MD [address] [place] [address] PCP - General 11/13/08 documented as of this encounter
--- OUTSIDE RECORDS SUMMARY | 2024-04-05 11:17 | XMS_ITS | Encounter Summary ---
Author Organization [facility] Address [address] [place] [address] Care Team Providers Care Trader Fixed Income Name Role Phone Lolly Oliveira MD Primary Care Provider [phone] Encounter Details Date Type Department Care Team (Late st Contact Info) Description 05/27/2021 Lab Requisition [facility] Pathology & Laboratory Medicine - [address] [address] Iman Moran, DO [address] [facility] [address] [place], [place] [id number] Encounter for other general examination Social History [...] explore management options, if applicable. 05/30/2021 13:31 [facility] Final Diagnosis A. COLON, POLYP AT 90 CM, BIOPSY/POLYPECTOM Y: - Tubular adenoma. 05/30/2021 13:31 [facility] Attestation By the signature below, the attending physician certifies that they have 1) personally conducted a gross and/or microscopic examination of the described specimen(s), and/or personally interpreted the results of laboratory testing of the described specimen(s), and 2) personally rendered or confirmed the above diagnosis. 05/30/2021 13:31 [facility] at 1331 Clinical History Severe diverticula and polypectomy x1 05/30/2021 13:31 [facility] Gross Description A. Received in formalin labelled with proper patient identification (initials J, K) and colon polyp x1 at 90 cm is a light pineda polypoid tissue measuring 0.2 x 0.2 x 0.2 cm. Submitted intact in A1. MICKEY CARLOS(ASCP) 05/27/2021 19:11 05/30/2021 13:31 [facility] Performing Lab [facility] 05/30/2021 13:31 [facility] Scanned Images 05/30/2021 13:31 [facility] Tissue ENTIRE COLON / Unknown 05/27/2021 11:23 EDT 05/27/2021 16:33 EDT us Iman Moran DO PATHOLOGY ORDERABLES Final Re sult [facility] [address] [place] [address] documented in this encounter Visit Diagnoses Diagnosis Encounter for other general examination documented in this encounter Care Teams Trader Fixed Income Relationship Specialty Start Date End Date Lolly Oliveira MD [address] [place] [address] PCP - General 11/13/08 documented as of this encounter
--- OUTSIDE RECORDS SUMMARY | 2024-04-05 11:17 | XMS_ITS | Encounter Summary ---
Author Organization [facility] Address [address] [place] [address] Care Team Providers Care Viscose Cellar Charge Hand Name Role Phone Lolly Oliveira MD Primary Care Provider [phone] Encounter Details Date Type Department Care Team (Late st Contact Info) Description 04/25/2009 Orders Only [facility] Laboratory Services - [facility] ([facility]) [address] [place], [place] [phone] Lolly Oliveira MD [address] [place], [place] [id number] Social History Tobacco Use Types Packs/Day Years [...] ? JING ALVARENGA ? Accession #: ? [id number] ? : ? 1950 (Age: 58) ??F [...] ORDERABLES Final Resu lt Performing Organization Address [facility]/State/ZIP Co de Phone Number [facility] [address] [place] [address] documented in this encounter Visit Diagnoses Not on filedocumented in this encounter Care Teams Viscose Cellar Charge Hand Relationship Specialty Start Date End Date Lolly Oliveira MD [address] [place] [address] PCP - General 11/13/08 documented as of this encounter
--- OUTSIDE RECORDS SUMMARY | 2024-04-05 11:17 | XMS_ITS | Encounter Summary ---
Author Organization [facility] Address [address] [place] [address] Care Team Providers Care Maintenance Job Titles Name Role Phone Lolly Oliveira MD Primary Care Provider Encounter Details Date Type Department Care Team (Late st Contact Info) Description 02/11/2021 Lab Requisition [facility] Pathology & Laboratory Medicine - [address] [id number] Outr Resulting Lab, Provider Social History Tobacco [...] - GENER AL ORDERABLES Final Result [facility] [address] [place] [address] * COVID-19 TESTING (02/11/2021 8:00 EST) COVID-19 rt-PCR Result Negative Negative 02/12/2021 14:17 EST [facility] Comment: This test [...] performed using the med SARS-CoV-2 assay ([employer] on the Med 6800 System Performing Lab Med [address] [facility] 02/12/2021 14:17 EST [facility] Swab 02/11/2021 8:00 EST 02/11/2021 22:22 EST us Provider Outr Resulting Lab MICROBIOLOGY - GENER AL ORDERABLES Final Result [facility] [address] [place] [address] documented in this encounter Visit Diagnoses Not on filedocumented in this encounter Care Teams Maintenance Job Titles Relationship Specialty Start Date End Date Lolly Oliveira MD [address] [place] [address] PCP - General 11/13/08 documented as of this encounter
--- OUTSIDE RECORDS SUMMARY | 2024-04-05 11:17 | XMS_ITS | Encounter Summary ---
Author Organization [facility] Address [address] [place] [address] Care Team Providers Care Wildlife Control Agent Name Role Phone Lolly Oliveira MD Primary Care Provider [phone] Encounter Details Date Type Department Care Team (Late st Contact Info) Description 02/20/2020 Lab Re[address] [facility] Pathology & Laboratory Medicine - [address] [address] Outr Resulting Lab, Provider Social History Tobacco [...] in accordance with CLIA regulations, College [employer] (CAP) guidelines (May 25, 2019), and FDA guidance (May 06, 2019). This test is only for use under the Food and Drug Administration's Emergency Use Authorization. Swab ENTIRE NASOPHARYNX / Unknown 02/19/2020 16:30 EST 02/20/2020 16:09 EST us Provider Outr Resulting Lab MICROBIOLOGY - GENER AL ORDERABLES Final Result [facility] [place], [place] * COVID-19 TESTING (02/19/2020 16:30 EST) COVID-19 rt-PCR Result NEGATIVE Negative 02/22/2020 23:41 EST [facility] Comment: 2019-novel Coronavirus (2019-nCoV) not detected [...] in accordance with CLIA regulations, College [employer] (CAP) guidelines (May 25, 2019), and FDA guidance (May 06, 2019). This test is only for use under the Food and Drug Administration's Emergency Use Authorization. Performing Lab [facility] 02/22/2020 23:41 EST [facility] Swab 02/19/2020 16:3 0 EST 02/20/2020 16:09 EST us Provider Outr Resulting Lab MICROBIOLOGY - GENER AL ORDERABLES Final Result [facility] [address] [place] [address] [facility] [place], [place] documented in this encounter Visit Diagnoses Not on filedocumented in this encounter Care Teams Wildlife Control Agent Relationship Specialty Start Date End Date Lolly Oliveira MD [address] [place] [address] PCP - General 11/13/08 documented as of this encounter
--- OUTSIDE RECORDS SUMMARY | 2024-04-05 11:17 | XMS_ITS | Encounter Summary ---
Author Organization [facility] Address [address] [place] [address] Care Team Providers Care Internet Technology Manager Name Role Phone Lolly Oliveira MD Primary Care Provider [phone] Encounter Details Date Type Department Care Team (Late st Contact Info) Description 04/01/2005 Results Only [facility] conversion [address] [place] [address] Blair Dukes MD [address] [place] [id number] Social History Tobacco Use Types Packs/Day Years [...] ? JING ALVARENGA ? Accession #: ? [id number] ? : ? 1950 (Age: 54) ??F [...] ? Received in Hollande' s fixative labelled [place] and #1 ??terminal ileum bx is a single 0.3 x 0.2 x 0.2 cm tissue, submitted intact as (A). Received in Hollande' s fixative labelled [place] and #2 ??transverse colon bx is a single 0.2 x 0.2 x 0.2 cm tissue, submitted intact as (B). ??(Dr. Lechuga)/[facility] End of Report [facility] 04/01/2005 04/02/2005 15: 24 EST us Blair Dukes MD PATHOLOGY ORDERABLES Final Resul t [facility] [address] [place] [address] documented in this encounter Visit Diagnoses Not on filedocumented in this encounter Care Teams Internet Technology Manager Relationship Specialty Start Date End Date Lolly Oliveira MD [address] [place] [address] PCP - General 11/13/08 documented as of this encounter
--- OUTSIDE RECORDS SUMMARY | 2024-04-05 11:18 | XMS_ITS | Encounter Summary ---
Author Organization [facility] [place] [address] Care Team Providers Care Technical Laboratory Asst Name Role Phone Lolly Oliveira MD Primary Care Provider [phone] Encounter Details Date Type Department Care Team (Latest Contact Info) Description 10/23/2022 10:00 AM EDT - 10/23/2022 11:59 PM EDT Hospital Encounter [place] [address] Discharge Disposition: Home Social History Tobacco Use [...] with spacer fluticasone propionate (Flonase) 50 mcg/actuation [place], Suspension 1 spray by Each Nare route [...] [facility] Hospital Encounter [place] [address] Arrived documented as of this [...] filedocumented in this encounter Care Teams Technical Laboratory Asst Relationship Specialty Start Date End Date Lolly Oliveira MD [address] [place] [address] PCP - General 07/17/13 documented as of this encounter
--- OUTSIDE RECORDS SUMMARY | 2024-04-05 11:18 | XMS_ITS | Encounter Summary ---
Author Organization [facility] [place] [address] Care Team Providers Care Activated Sludge Operator Name Role Phone Lolly Oliveira MD Primary Care Provider [phone] Encounter Details Date Type Department Care Team [...] AM EST Hospital Encounter [place] [address] Arrived documented as of this encounter Visit Diagnoses Not on filedocumented in this encounter Care Teams Activated Sludge Operator Relationship Specialty Start Date End Date Lolly Oliveira MD [address] [place] [address] PCP - General 07/17/13 documented as of this encounter
--- OUTSIDE RECORDS SUMMARY | 2024-04-05 11:18 | XMS_ITS | Encounter Summary ---
Author Organization [facility] [place] [address] Care Team Providers Care Group Rooms Coordinator Name Role Phone Lolly Oliveira MD Primary Care Provider [phone] Encounter Details Date Type Department Care Team (Latest Contact Info) Description 04/21/2023 10:00 AM EST - 04/21/2023 11:59 PM EST Hospital Encounter Non[place] [phone] Discharge Disposition: Home Social History Tobacco Use [...] with spacer fluticasone propionate (Flonase) 50 mcg/actuation [place], Suspension 1 spray by Each Nare route [...] AM EST Hospital Encounter Non-[place] [address] Arrived documented as of this [...] filedocumented in this encounter Care Teams Group Rooms Coordinator Relationship Specialty Start Date End Date Lolly Oliveira MD [address] [place] [address] PCP - General 07/17/13 documented as of this encounter
--- OUTSIDE RECORDS SUMMARY | 2024-04-05 11:18 | XMS_ITS | Encounter Summary ---
[place] [address] Care Team Providers Care Policy Issue Clerk Name Role Phone Lolly Oliveira MD Primary Care Provider [phone] Encounter Details Date Type Department Care Team [...] AM EST Hospital Encounter Non-Invasive [place] [address] Arrived documented as of this encounter Visit Diagnoses Not on filedocumented in this encounter Care Teams Policy Issue Clerk Relationship Specialty Start Date End Date Lolly Oliveira MD [address] [place] [address] PCP - General 07/17/13 documented as of this encounter
--- OUTSIDE RECORDS SUMMARY | 2024-04-05 11:18 | XMS_ITS | Encounter Summary ---
Author Organization [facility] [place] [address] Care Team Providers Care Spinal Surgeon Name Role Phone Lolly Oliveira MD Primary Care Provider Reason for Visit * Diagnostic Test (Routine) - Closed Specialty Diagnoses / Procedures Referred By Contac t Referred To Contact Radiology Diagnoses Left bundle branch block Nonischemic cardiomyopathy Procedures MRI Cardiac Morphology Function With Flow Velocity Quantification wwo Contrast MRI Cardiac Morphology Function wwo Contrast Lalit Mcmahon MD [facility] [place] [address] [facility] [place] [address] Referral ID Status Reason Start Date Expiration Date V isits Requested Visits Authorized [id number] Closed Specialty Service Requested 05/06/2022 11/07/2023 2 1 Encounter Details Date Type Department Care Team (Latest Contact Info) Description 07/14/2022 9:09 AM EDT - 07/14/2022 11:59 PM EDT Hospital [place] [address] Lalit Mcmahon MD [facility] [place] [address] Discharge Disposition: Home Social History Tobacco Use [...] with spacer fluticasone propionate (Flonase) 50 mcg/actuation [place], Suspension 1 spray by Each Nare route [...] EST Hospital Encounter Non-Invasive [place] [address] Arrived documented as of this [...] mLs documented in this encounter Care Teams Spinal Surgeon Relationship Specialty Start Date End Date Lolly Oliveira MD [address] [place] [address] PCP - General 07/17/13 documented as of this encounter
--- OUTSIDE RECORDS SUMMARY | 2024-04-05 11:18 | XMS_ITS | Encounter Summary ---
Author Organization [facility] [place] [address] Care Team Providers Care Preservative Filler Machine Operator Name Role Phone Lolly Oliveira MD Primary Care Provider [phone] Encounter Details Date Type Department Care Team (Late st Contact Info) Description 03/15/2023 Telephone Cardiology at [address] [phone] Saranya Ma Social History Tobacco Use Types Packs/Day Years Used Date Smoking Tobacco: Never Alcohol Use Standard Drinks/Week Comments Not Currently 0 (1 standard drink = 0.6 oz pur e alcohol) [facility] Inpatient Questions Answer Date Recorded Does Anyone [...] her to have an echo done at [facility] prior to her appt withmnm there on 05/12/23. Message sent to Dr. Mcmahon asking him to put order in if he would like her to have this done. Saranya Ma Sr. Clinical Procedure [place]/Line Installer documented in this encounter Plan of Treatment Upcoming Encounters Date Type Department Care Team (Late st Contact Info) Description 04/15/2024 10:00 AM EST Hospital Encounter Non-[place] [address] Arrived documented as of this encounter Visit Diagnoses Not on filedocumented in this encounter Care Teams Preservative Filler Machine Operator Relationship Specialty Start Date End Date Lolly Oliveira MD [address] [place] [address] PCP - General 07/17/13 documented as of this encounter
--- OUTSIDE RECORDS SUMMARY | 2024-04-05 11:18 | XMS_ITS | Encounter Summary ---
Author Organization [place] [address] Care Team Providers Care Occupational Therapist Rehab Manager Name Role Phone Lolly Oliveira MD Primary Care Provider [phone] Reason for Visit * Reason Comments Follow-up Encounter Details Date Type Department Care Team (Late st Contact Info) Description 05/21/2022 8:00 AM EDT Office Visit Dermatology at [address] [phone] Clay Ramírez MD [address] [facility] [place] [address] Psoriasis, guttate Social History Tobacco Use Types [...] [facility] Hospital Encounter Non-[place] [address] Arrived documented as of this encounter Visit Diagnoses Diagnosis Psoriasis, guttate Other psoriasis documented in this encounter Care Teams Occupational Therapist Rehab Manager Relationship Specialty Start Date End Date Lolly Oliveira MD [address] [place] [address] PCP - General 07/17/13 documented as of this encounter
--- OUTSIDE RECORDS SUMMARY | 2024-04-05 11:18 | XMS_ITS | Encounter Summary ---
[place] [address] Care Team Providers Care Tire Builder Operator Name Role Phone Lolly Oliveira MD Primary Care Provider [phone] Encounter Details Date Type Department Care Team [...] AM EST Hospital Encounter Non-Invasive [place] [address] Arrived documented as of this encounter Visit Diagnoses Not on filedocumented in this encounter Care Teams Tire Builder Operator Relationship Specialty Start Date End Date Lolly Oliveira MD [address] [place] [address] PCP - General 07/17/13 documented as of this encounter
--- OUTSIDE RECORDS SUMMARY | 2024-04-05 11:18 | XMS_ITS | Encounter Summary ---
Author Organization [facility] Address [facility] [place] [address] Care Team Providers Care Milk Hauler Name Role Phone Lolly Oliveira MD Primary Care Provider [phone] Encounter Details Date Type Department Care Team (Late st Contact Info) Description 01/29/2023 Notes Only Cardiology at [address] [address] Merle Lin PA [facility] [place] [address] Social History Tobacco Use Types Packs/Day Years [...] pdf document Date of transmission: 01/29/2023 Device e commerce analyst: BSI Device type: SUPERVISOR OFFSET PLATE PREPARATION-D Presenting rhythm: /RVP/LVP AP 21% Right RICE DRYER MECHANIC 100% Left RICE DRYER MECHANIC: 100% Battery: 10.5 years [employer] Index rising in setting of increasing S3 intensity, increasing respiratory rate, increasing night heart rate, and increasing mean heart rate. MICKEY Villa 01/29/2023 9:06 AM documented in this encounter Plan of Treatment Upcoming Encounters Date Type Department Care Team (Late st Contact Info) Description 04/15/2024 10:00 AM EST Hospital Encounter Non-Invasive [place] [address] Arrived documented as of this encounter Visit Diagnoses Not on filedocumented in this encounter Care Teams Milk Hauler Relationship Specialty Start Date End Date Lolly Oliveira MD [address] [place] [address] PCP - General 07/17/13 documented as of this encounter
--- OUTSIDE RECORDS SUMMARY | 2024-04-05 11:18 | XMS_ITS | Encounter Summary ---
Author Organization [facility] [place] [address] Care Team Providers Care Law Firm Administrator Name Role Phone Lolly Oliveira MD Primary Care Provider [phone] Reason for Referral * Consultation (Routine) - Closed Specialty Diagnoses / Procedures Referred By Contact Referred To Contact Electrophysiology / Cardiology Diagnoses Left bundle branch block Cardiomyopathy, unspecified type AT MINIMUM PT NEEDS CONSIDERATION FOR DEFIBRILLATOR, ALSO CANDIDATE FOR RESYNCHRONIZATION THERAPY HER QRS IS >0.16 Lolly Oliveira MD [address] [place] [address] [facility] Cardiology [address] [place] [phone] Referral ID Status Reason Start Date Expiration Date V isits Requested Visits Authorized [id number] Closed Consult, Test & Treat PCP Updated and/or Approved 04/30/2022 04/30/2023 6 6 Encounter Details Date Type Department Care Team (Latest Contact Info) Description 04/30/2022 Transcribe Orders eDH Incoming Referrals [phone] Lolly Oliveira MD [address] [place], [place] [id number] Left bundle branch block; Cardiomyopathy, unspecified type [...] AM EST Hospital Encounter [place] [address] Arrived Scheduled Referrals Name Type Priority Associated Diagnoses Orde r Schedule Referral to Cardiology Outpatient Referral Routine Left bundle branch block Cardiomyopathy, Unspecified Type Ordered: 04/30/2022 documented as of this encounter Visit Diagnoses Diagnosis Left bundle branch block Other left bundle branch block Cardiomyopathy, unspecified type documented in this encounter Care Teams Law Firm Administrator Relationship Specialty Start Date End Date Lolly Oliveira MD [address] [place] [address] PCP - General 07/17/13 documented as of this encounter
--- OUTSIDE RECORDS SUMMARY | 2024-04-05 11:18 | XMS_ITS | Encounter Summary ---
Author Organization [facility] [place] [address] Care Team Providers Care Food Science Technician Name Role Phone Lolly Oliveira MD Primary Care Provider [phone] Reason for Referral * Diagnostic Test (Routine) - Closed Specialty Diagnoses / Procedures Referred By Contac t Referred To Contact Radiology Diagnoses Left bundle branch block Nonischemic cardiomyopathy Procedures MRI Cardiac Morphology Function With Flow Velocity Quantification [facility] Contrast MRI Cardiac Morphology Function wwo Contrast Lalit Mcmahon MD [facility] [place] [address] [place] [address] Referral ID Status Reason Start Date Expiration Date V isits Requested Visits Authorized [id number] Closed Specialty Service Requested 05/06/2022 11/07/2023 2 1 Reason for Visit * Diagnostic Test (Routine) - Closed Specialty Diagnoses / Procedures Referred By Contac t Referred To Contact Radiology Diagnoses Left bundle branch block Nonischemic cardiomyopathy Procedures MRI Cardiac Morphology Function With Flow Velocity Quantification o Contrast MRI Cardiac Morphology Function wwo Contrast Lalit Mcmahon MD [facility] [place] [address] [place] [address] Referral ID Status Reason Start Date Expiration Date V isits Requested Visits Authorized [id number] Closed Specialty Service Requested 05/06/2022 11/07/2023 2 1 Encounter Details Date Type Department Care Team (Latest Contact Info) Description 07/14/2022 9:08 AM EDT Hospital Encounter MRI at [facility] [place] [phone] Lalit Mcmahon MD [facility] [place] [address] Left bundle branch block; Nonischemic cardiomyopathy Discharge [...] with spacer fluticasone propionate (Flonase) 50 mcg/actuation [place], Suspension 1 spray by Each Nare route [...] Lyle El [facility] [address] Female [phone] (home) No relevant phone numbers on file. Lolly Oliveira MD None Allergies Allergen Reactions ??? Sulfa (Sulfonamide Antibiotics) Date/Time of call: July 07, 2022/11:03 AM/ PREVIOUS MRI SCAN? HEIGHT: WEIGHT: SCHEDULED SCAN: MRI CARDIAC MORPHOLOGY FUNCTION WITH FLOW VELOCITY QUANTIFICATION WWO CONTRAST [[id number]] Order Questions Answers Where will study be performed? [facility] Radiology [120] SUBJECTIVE: Very Claustrophobic [...] ( KV ) You must have a industrial truck driver present when you check in. This patient has been informed that they require a industrial truck driver to drive them home after this procedure. In the absence of a industrial truck driver, IR will not be able to sedate for your scan. Pt verbalized understanding of these instructions during the pre-procedure education via phone. Yes Name of industrial truck driver: Daughter Phone number: PRIOR SCAN DATE/S SEDATION TYPE SUCCESSFUL 07/14/22 MRI Cardiac Morphology Function with Flow Velocity Quantification wwo Contrast Ativan 1mg x 1 dose Pass Revised 08/03/17 documented in this encounter Plan of Treatment Upcoming Encounters Date Type Department Care Team (Late st Contact Info) Description 04/15/2024 10:00 AM [facility] Hospital Encounter [place] [address] Arrived documented as of this encounter Procedures [...] questions please contact the health resident care coordinator that requested your imaging first. ? Electronically signed by: Greyson Herron MD, [facility] ([phone]), at 07/15/2022 9:53 AM Narrative 07/15/2022 9:53 [...] have questions please contactthe health resident care coordinator that requested your imaging first. [...] mg documented in this encounter Care Teams Food Science Technician Relationship Specialty Start Date End Date Lolly Oliveira MD [address] [place] [address] PCP - General 07/17/13 documented as of this encounter
--- OUTSIDE RECORDS SUMMARY | 2024-04-05 11:18 | XMS_ITS | Encounter Summary ---
Author Organization [facility] Address [facility] [place] [address] Care Team Providers Care Property Utilization Manager Name Role Phone Lolly Oliveira MD Primary Care Provider [phone] Encounter Details Date Type Department Care Team (Late st Contact Info) Description 11/11/2022 Orders Only Cardiology at [address] [phone] Lalit Mcmahon MD [facility] [address] Nonischemic cardiomyopathy Social History Tobacco Use Types [...] AM [facility] Encounter Non-[place]vasive [place] [address] Arrived documented as of this encounter Visit Diagnoses Diagnosis Nonischemic cardiomyopathy Other primary cardiomyopathies documented in this encounter Care Teams Property Utilization Manager Relationship Specialty Start Date End Date Berrian, Lolly M, MD [address] [place] [address] PCP - General 07/17/13 documented as of this encounter
--- OUTSIDE RECORDS SUMMARY | 2024-04-05 11:18 | XMS_ITS | Encounter Summary ---
[place] [address] Care Team Providers Care Brake Lining Maker Name Role Phone Lolly Oliveira MD Primary Care Provider [phone] Encounter Details Date Type Department Care Team [...] AM EST Hospital Encounter Non-[place] [address] Arrived documented as of this encounter Visit Diagnoses Not on filedocumented in this encounter Care Teams Brake Lining Maker Relationship Specialty Start Date End Date Lolly Oliveira MD [address] [place] [address] PCP - General 07/17/13 documented as of this encounter
--- OUTSIDE RECORDS SUMMARY | 2024-04-05 11:18 | XMS_ITS | Clinical Summary ---
Author Organization [facility] [place] [address] Care Team Providers Care Self Propelled Dredge Operator Name Role Phone Lolly Oliveira MD Primary Care Provider [phone] Allergies Active Allergy Reactions Criticality Noted Date [...] spacer Active fluticasone propionate (Flonase) 50 mcg/actuation [place], Suspension 1 spray by Each Nare route [...] PM EST Hospital Encounter Non-[place] [address] Discharge Disposition: Home from Last [...] Encounter Non-[place] [address] Arrived Health Maintenance Due Date Last Done [...] series) 11/07/2023 Medical Devices Implanted Type Area Seed Service Advisor Device Identifier Shelf Expiration Date Model / Serial / Lot Bsx: [id number]: [id number]/18/2 023 Implanted: by Lalit Mcmahon MD (Quantity not on file) Defibrillator Chest Wall [employer] G447 / [id number] / Bsx: [id number]: [id number]/18/2 023 Implanted: by Lalit Mcmahon MD (Quantity not on file) Lead Heart [employer] 4674 / [id number] / Bsx: [id number]: [id number] Implanted: by Lalit Mcmahon MD (Quantity not on file) Lead Heart [employer] 7841 / [id number] / Bsx: [id number]: [id number]/18/2 023 Implanted: by Lalit Mcmahon MD (Quantity not on file) Lead Heart [employer] 0672 / [id number] / Procedures Procedure Name Priority Date/Time Associated [...] Status decision made by: Patient Care Teams Self Propelled Dredge Operator Relationship Specialty Start Date End Date Lolly Oliveira MD [address] [place] [id number] PCP - General 07/17/13
--- OUTSIDE RECORDS SUMMARY | 2024-04-05 11:18 | XMS_ITS | Encounter Summary ---
Author Organization [facility] [place] [address] Care Team Providers Care Transport Manager Name Role Phone Lolly Oliveira MD Primary Care Provider [phone] Encounter Details Date Type Department Care Team (Latest Contact Info) Description 10/18/2023 10:00 AM EDT - 10/18/2023 11:59 PM EDT Hospital Encounter [place] [address] Discharge Disposition: Home Social History Tobacco Use [...] with spacer fluticasone propionate (Flonase) 50 mcg/actuation [place], Suspension 1 spray by Each Nare route daily as needed. documented as of this encounter Plan of Treatment Upcoming Encounters Date Type Department Care Team (Late st Contact Info) Description 04/15/2024 10:00 AM EST Hospital Encounter [place] [address] Arrived documented as of this encounter Procedures [...] on filedocumented in this encounter Care Teams Transport Manager Relationship Specialty Start Date End Date Lolly Oliveira MD [address] [place] [address] PCP - General 07/17/13 documented as of this encounter
--- OUTSIDE RECORDS SUMMARY | 2024-04-05 11:18 | XMS_ITS | Encounter Summary ---
Author Organization [facility] [place] [address] Care Team Providers Care Clothing Room Supervisor Name Role Phone Lolly Oliveira MD Primary Care Provider [phone] Encounter Details Date Type Department Care Team (Late st Contact Info) Description 03/17/2023 Telephone Cardiology at [address] [phone] Saranya Ma Social History Tobacco Use Types [...] 9:43 AM EST Echo order faxed to [facility] at [phone]. No Prior auth needed. Ref #:[id number]. Saranya Ma Sr. Clinical Procedure [place]/Modular Set Crew Member documented in this encounter Plan of Treatment Upcoming Encounters Date Type Department Care Team (Late st Contact Info) Description 04/15/2024 10:00 AM [facility] Hospital Encounter Non-[place] [address] Arrived documented as of this encounter Visit Diagnoses Not on filedocumented in this encounter Care Teams Clothing Room Supervisor Relationship Specialty Start Date End Date Lolly Oliveira MD [address] [place] [address] PCP - General 07/17/13 documented as of this encounter
--- OUTSIDE RECORDS SUMMARY | 2024-04-05 11:18 | XMS_ITS | Encounter Summary ---
Author Organization [facility] [place] [address] Care Team Providers Care Leaf Sticker Name Role Phone Lolly Oliveira MD Primary Care Provider [phone] Reason for Visit * Reason Onset Date Comments Post Procedure Call 07/30/2022 Encounter Details Date Type Department Care Team (Late st Contact Info) Description 07/30/2022 Notes Only Cardiology at [address] [phone] Rosenda Sutton, RN Post Procedure Call Social [...] 07/30/2022 9:59 AM EDTSummary: Post Procedure Call: FUR MIXER OPERATOR implant EP RN Post-Procedure Note: Date [...] Note: Follow-up Recommendations for Providers: - s/p FUR MIXER OPERATOR-D implant - post implant QRS 130 [...] [facility] Hospital Encounter [place] [address] Arrived documented as of this encounter Visit Diagnoses Not on filedocumented in this encounter Care Teams Leaf Sticker Relationship Specialty Start Date End Date Lolly Oliveira MD [address] [place] [address] PCP - General 07/17/13 documented as of this encounter
--- OUTSIDE RECORDS SUMMARY | 2024-04-05 11:18 | XMS_ITS | Encounter Summary ---
Author Organization [facility] Address [facility] [place] [address] Care Team Providers Care Overhead Crane Truck Loader Name Role Phone Lolly Oliveira MD Primary Care Provider [phone] Encounter Details Date Type Department Care Team (Late st Contact Info) Description 03/15/2023 Orders Only Cardiology at [address] [address] Lalit Mcmahon MD [facility] [place] [address] Nonischemic cardiomyopathy; Biventricular ICD (implantable cardioverter-defibrill ator) [...] AM EST Hospital Encounter [place] [address] Arrived documented as of this encounter Visit Diagnoses Diagnosis Nonischemic cardiomyopathy Other primary cardiomyopathies Biventricular ICD (implantable cardioverter-defibrillator) in place documented in this encounter Care Teams Overhead Crane Truck Loader Relationship Specialty Start Date End Date Lolly Oliveira MD [address] [place] [address] PCP - General 07/17/13 documented as of this encounter
--- OUTSIDE RECORDS SUMMARY | 2024-04-05 11:18 | XMS_ITS | Encounter Summary ---
Author Organization [facility] [place] [address] Care Team Providers Care Soap Tender Name Role Phone Lolly Oliveira MD Primary Care Provider [phone] Reason for Visit * Reason Onset Date Comments Other 07/24/2022 Implanted Cardia c Device Teaching/Education Encounter Details Date Type Department Care Team (Late st Contact Info) Description 07/24/2022 Notes Only Cardiology at [address] [phone] Letha Arroyo Other (Implanted Cardiac Device Teaching/Education) [...] to call the Cardiac Device Clinic at [phone] with any questions. Plan: Post op check: [...] [facility] Hospital Encounter [place] [address] Arrived documented as of this encounter Visit Diagnoses Not on filedocumented in this encounter Care Teams Soap Tender Relationship Specialty Start Date End Date Lolly Oliveira MD [address] [place] [address] PCP - General 07/17/13 documented as of this encounter
--- OUTSIDE RECORDS SUMMARY | 2024-04-05 11:18 | XMS_ITS | Encounter Summary ---
Author Organization [facility] [place] [address] Care Team Providers Care Business Intern Name Role Phone Lolly Oliveira MD Primary Care Provider [phone] Encounter Details Date Type Department Care Team (Latest Contact Info) Description 01/21/2023 10:00 AM EST - 01/21/2023 11:59 PM EST Hospital Encounter Non-Invasive [place] [address] Discharge Disposition: Home Social History Tobacco Use [...] with spacer fluticasone propionate (Flonase) 50 mcg/actuation [place], Suspension 1 spray by Each Nare route [...] AM EST Hospital Encounter Non-Invasive [place] [address] Arrived documented as of this [...] filedocumented in this encounter Care Teams Business Intern Relationship Specialty Start Date End Date Lolly Oliveira MD [address] [place] [address] PCP - General 07/17/13 documented as of this encounter
--- OUTSIDE RECORDS SUMMARY | 2024-04-05 11:18 | XMS_ITS | Encounter Summary ---
Author Organization [facility] [place] [address] Care Team Providers Care Machine Bander And Cellophaner Name Role Phone Lolly Oliveira MD Primary Care Provider [phone] Reason for Visit * Reason Onset Date Comments Pre Procedure Call 07/01/2022 Encounter Details Date Type Department Care Team (Late st Contact Info) Description 07/01/2022 Telephone Cardiology at [address] [phone] Rosenda Sutton RN Pre Procedure Call Social History Tobacco Use Types Packs/Day Years Used Date Smoking Tobacco: Never Sex and Gender Information Value Date Recorded Sex Assigned at Not on file Gender Identity Not on file Sexual Orientation Not on file documented as of this encounter Miscellaneous Notes * Telephone Encounter - Rosenda Sutton RN - 07/01/2022 9:30 AM EDTSummary: Pre Procedure Call: BLUEPRINT ASSEMBLER implant EP SALES CORRESPONDENT COORDINATION CHECKLIST Patient Name: Luna Mott Patient Performing Blending Kettle Tender: Lalit Mcmahon Referring Provider: Lolly Oliveira Date of Procedure: 07/23/22 Arrival Time/ Case Time: 12:00 pm / 1:00 pm Check In Location: Sheet Metal Worker Apprentice Desk 4W Date Patient was Called: 07/01/22 Procedure: BLUEPRINT ASSEMBLER Company: [employer] Type: BLUEPRINT ASSEMBLER-D Laterality: LEFT Orders: Yes Lab Orders: Yes [...] overnight , understands that they will need dray truck driver on day of discharge Notified pt that Goff catheter may be placed on day of procedure depending on type & duration of case. documented in this encounter Plan of Treatment Upcoming Encounters Date Type Department Care Team (Late st Contact Info) Description 04/15/2024 10:00 AM [facility] Hospital Encounter Non-[place] [address] Arrived documented as of this encounter Visit Diagnoses Not on filedocumented in this encounter Care Teams Machine Bander And Cellophaner Relationship Specialty Start Date End Date Lolly Oliveira MD [address] [place] [address] PCP - General 07/17/13 documented as of this encounter
--- OUTSIDE RECORDS SUMMARY | 2024-04-05 11:18 | XMS_ITS | Encounter Summary ---
Author Organization [facility] Address [address] [place] [address] Care Team Providers Care Mainframe Software Developer Name Role Phone Lolly Oliveira MD Primary Care Provider [phone] Encounter Details Date Type Department Care Team (Late st Contact Info) Description 03/06/2003 Results Only [facility] conversion [address] [place] [address] Lolly Oliveira MD [address] [place], [place] [id number] Social History Tobacco Use Types Packs/Day Years [...] ORDERABLES Final Resu lt TOVA BLANCO [address] [place] [address] documented in this encounter Visit Diagnoses Not on filedocumented in this encounter Care Teams Mainframe Software Developer Relationship Specialty Start Date End Date Lolly Oliveira MD [address] [place] [address] PCP - General 11/13/08 documented as of this encounter
--- OUTSIDE RECORDS SUMMARY | 2024-04-05 11:18 | XMS_ITS | Encounter Summary ---
[place] [address] Care Team Providers Care Tool Room Gear Machine Operator Name Role Phone Lolly Oliveira MD Primary Care Provider [phone] Encounter Details Date Type Department Care Team [...] AM EST Hospital Encounter Non-Invasive [place] [address] Arrived documented as of this encounter Visit Diagnoses Not on filedocumented in this encounter Care Teams Tool Room Gear Machine Operator Relationship Specialty Start Date End Date Lolly Oliveira MD [address] [place] [address] PCP - General 07/17/13 documented as of this encounter
--- OUTSIDE RECORDS SUMMARY | 2024-04-05 11:18 | XMS_ITS | Encounter Summary ---
Author Organization [facility] [place] [address] Care Team Providers Care City Manager Name Role Phone Lolly Oliveira MD Primary Care Provider [phone] Reason for Referral * Diagnostic Test (Routine) - Closed Specialty Diagnoses / Procedures Referred By Contac t Referred To Contact Radiology Diagnoses Left bundle branch block Nonischemic cardiomyopathy Procedures MRI Cardiac Morphology Function With Flow Velocity Quantification wwo Contrast MRI Cardiac Morphology Function wwo Contrast Lalit Mcmahon MD [facility] [place] [address] [place] [address] Referral ID Status Reason Start Date Expiration Date V isits Requested Visits Authorized [id number] Closed Specialty Service Requested 05/06/2022 11/07/2023 2 1 Encounter Details Date Type Department Care Team (Late st Contact Info) Description 05/06/2022 Orders Only Cardiology at [address] [phone] Lalit Mcmahon MD [facility] [place] [address] Left bundle branch block; Nonischemic cardiomyopathy Social [...] AM EST Hospital Encounter Non-Invasive [place] [phone] Arrived documented as of this encounter Results [...] who have questions please contact the health overnight caregiver that requested your imaging first. ? [...] patients who have questions please contactthe health overnight caregiver that requested your imaging first. Lalit Mcmahon MD IMG MRI ORDERABLES documented in this encounter Visit Diagnoses Diagnosis Left bundle branch block Other left bundle branch block Nonischemic cardiomyopathy Other primary cardiomyopathies Left bundle branch block Other left bundle branch block Nonischemic cardiomyopathy Other primary cardiomyopathies documented in this encounter Care Teams City Manager Relationship Specialty Start Date End Date Lolly Oliveira MD [address] [place] [address] PCP - General 07/17/13 documented as of this encounter
--- OUTSIDE RECORDS SUMMARY | 2024-04-05 11:18 | XMS_ITS | Encounter Summary ---
Author Organization [facility] [place] [address] Care Team Providers Care Non Ferrous Material Handler Name Role Phone Lolly Oliveira MD Primary Care Provider [phone] Reason for Visit * Auth/Cert (Routine) Specialty Diagnoses / Procedures Referred By Contac t Referred To Contact Diagnoses Left bundle-branch block, unspecified Other cardiomyopathies Left bundle branch block [I44.7]Nonischemic cardiomyopathy [I42.8] Procedures PRG CATH PLMT LEFT HEART CATH & ARTS W/INJ & ANGIO IMG S&I ELECTROPHYSIOLOGY PROCEDURE Lalit Mcmahon MD [facility] [place] [address] [facility] Referral ID Status Reason Start Date Expiration Date Visits Re quested Visits Authorized [id number] 1 1 Encounter Details Date Type Department Care Team (Late st Contact Info) Description 07/23/2022 1:00 PM EDT - 07/23/2022 5:30 PM EDT Surgery [place] [address] Lalit Mcmahon MD [facility] [place] [address] ELECTROPHYSIOLOGY PROCEDURE Social History Tobacco Use Types [...] Luna Mott Patient Age: 71 y.o. Language: Malian Race: White Ethnicity: Not nor Admit date: 07/23/2022 Discharge date and time: 07/24/22 Attending Physician: Lalit Mcmahon MD Discharge Physician: Lalit Mcmahon MD Follow-up Recommendations for Providers: - s/p POWER ELECTRONICS RESEARCH ENGINEER-D implant - post implant QRS 130 ms - reviewed post-implant instructions - no medication changes - Follow up in device clinic for wound/device check in ~10 days ([facility]) Inpatient Provider Contact Information: Cardiac Electrophysiology - Discharge Diagnoses (Hospital Problems) and Secondary Diagnoses (Chronic Problems): Active Hospital Problems Diagnosis ??? HFrEF (heart failure with reduced ejection fraction) Resolved Hospital Problems No resolved problems to display. Active Non-Hospital Problems Diagnosis ??? Dermatofibroma ??? Nevus ??? Solar lentigo Operations/Major Procedures: 07/23/22: [facility] POWER ELECTRONICS RESEARCH ENGINEER-D implant History of Presentation: 71 y.o. female with a history of HFrEF, LBBB, QRS >150, NYHA II who is POD#1 of POWER ELECTRONICS RESEARCH ENGINEER-D implant ([employer]). Hospital Course: Elective admission for POWER ELECTRONICS RESEARCH ENGINEER-D implant Admitted post-implant for pain management, [...] (heart failure with reduced ejection fraction) [I50.20] POWER ELECTRONICS RESEARCH ENGINEER-D implant Admission Condition: good Indication for [...] g Refills: 3 fluticasone propionate 50 mcg/actuation [place], Suspension Commonly known as: Flonase 1 spray [...] F. The office scheduling phone number is [phone]. ARM MOVEMENT RESTRICTIONS POST-IMPLANT - Do not [...] please call the Cardiac ElectrophysiologyTriage Nurse at [phone], option 3. General Instructions None Discharge References/Attachments [...] F. The office scheduling phone number is [phone]. ARM MOVEMENT RESTRICTIONS POST-IMPLANT - Do not [...] please call the Cardiac ElectrophysiologyTriage Nurse at [phone], option 3. documented in this encounter Medications [...] with spacer fluticasone propionate (Flonase) 50 mcg/actuation Round [place], Suspension 1 spray by Each Nare route [...] Cardiac Electrophysiology Post-Implant Device Interrogation Luna Mott [id number] 07/24/2022 History: Luna Mott is a 71 y.o. female with a history of HFrEF, LBBB, QRS >150, NYHA II who is POD#1 of POWER ELECTRONICS RESEARCH ENGINEER-D implant ([employer]). Overall feels well this morning. Ready [...] WOB Neuro- A&Ox3 Device Interrogation: Data ?? Deburring And Tooling Machine Operator Model # Serial # Generator [employer] [id number] Atrial Lead [employer] [id number] RV Lead [employer] 0672 [id number] LV Lead [employer] [id number] ?? Diagnostics Pacing Mode: DDD 60-130 Underlying Rhythm: [place] Atrial Episodes: None Ventricular Episodes: None FINAL PROGRAMMING: Pacing: Mode Lower rate (ppm) Upper rate (ppm) ?? DDD 60 130 VF: Rate (bpm) #Antitachycardia pacing First shock energy (J) ?? 200 Quick convert 41 VT: 170 Monitor only Monitor only ? Battery and Leads Impedances (ohms) Sensing (mV) Thresholds HV RA RV LV RA RV LV RA RV LV 73 818 091 3879 (LVa) 7.7 13.1 >25 0.4V @ 0.4 ms 0.4V @ 0.4 ms 0.5 V @ 1.0 ms POD#1 CXR: All leads in nominal positioning Impression: 71 y.o. female who is s/p POWER ELECTRONICS RESEARCH ENGINEER-D implant for LBBB, NYHA II, HFrEF. - Appropriate device function post-implant - CXR negative for post-implant complications - Changed sensed AV delay from 130 to 110 Plan: 1. Reviewed standard post-implant discharge instructions (see patient instructions) including arm restrictions, wound care, bathing, and driving 2. No medication changes. 3. Follow up in device clinic for wound/device check in ~10 days ([facility]) Fadi Nunez MD 07/24/2022 Pager: [phone] I met with the patient today and [...] agreement. ? Dr. Lalit Mcmahon, electrophysiology attending ([id number]) * Zaria Wright RN - 07/23/2022 8:28 [...] HF, QRS > 150 ms presents for POWER ELECTRONICS RESEARCH ENGINEER-D placement. ROS: Denies recent fevers or [...] 0.9) flush 5 mL 5 mL Intravenous [id number] ramos MD ??? sodium chloride 0.9 % [...] HF, QRS > 150 ms presents for POWER ELECTRONICS RESEARCH ENGINEER-D placement. Backup would be LBBAP lead. Antibiotics: cefazolin Rationales for, intended benefits and potential risk of planned procedures reviewed. The patient indicated understanding and agreement with the plan. Informed consent signed. Procedure checklist completed. Fadi Nunez MD Cardiac Electrophysiology Fellow [facility] Pager [phone] 07/23/2022 I met with the patient today [...] Operative Note Patient Name: Luna Mott : [id number] MR#: [id number] Case Date: 07/23/2022 Surgeon: Surgeon(s) and Role: [...] AM EST Hospital Encounter Non-Invasive [place] [address] Arrived Scheduled Orders Name Type Priority Associated Diagnoses Orde r Schedule EKG 12 Lead ECG Routine Cardiac resynchronization therapy defibrillator (POWER ELECTRONICS RESEARCH ENGINEER-D) in place One Time for 1 [...] (Bezet) 522 ms MUSE SYSTEM Calculated R Laurel 78 degrees MUSE SYSTEM Calculated T Laurel -71 degrees MUSE SYSTEM INTERPRETATION AV dual-paced [...] who have questions please contact the health respiratory care instructor that requested your imaging first. ? Electronically signed by: Kwame Vargas MD, [facility] ([phone]), at 07/24/2022 6:43 AM Narrative 07/24/2022 6:43 [...] patients who have questions please contactthe health respiratory care instructor that requested your imaging first. Electronically signed by: Kwame Vargas MD, [facility]([phone]), at 07/24/2022 6:43 AM Lalit Mcmahon MD IMG DX ORDERABLES * ELECTROPHYSIOLOGY PROCEDURE (07/23/2022 1:11 PM EDT) Anatomical Region Laterality Modality Other Narrative 07/23/2022 4:24 PM EDT Table formatting from the original result was not included. BIVENTRICULAR ICD IMPLANTATION Lie Detector Operator: Lalit Mcmahon MD Fellow: Fadi Nunez [...] the entire procedure. LEAD AND GENERATOR DATA: Deburring And Tooling Machine Operator Model # Serial # Generator [employer] [id number] Atrial Lead [employer] [id number] [id number] RV Lead [employer] 0672 [id number] LV Lead [employer] [id number] PACE/SENSE DATA: Sensed wave (mV) Threshold (V) [...] (cGycm2) 300 CONCLUSIONS: Successful implantation of a [employer] biventricular ICD for primary prevention and treatment of symptoms related to congestive heart failure. Follow up in EP clinic in 1-2 months. Procedures performed: new ICD system ( cpt 60037-R9); implant LV lead at time of ICD insertion (cpt 21526) I have read, edited and approve of this report: Lalit Mcmahon MD [facility] Cardiac Electrophysiology 07/23/2022 4:22 PM Procedure Note Lalit Mcmahon MD - 07/23/2022 BIVENTRICULAR ICD IMPLANTATION Lie Detector Operator: Lalit Mcmahon MD Fellow: Fadi Nunez [...] in the entireprocedure. LEAD AND GENERATOR DATA: Deburring And Tooling Machine Operator Model # Serial # Generator [employer] [id number] Atrial Lead [employer] [id number] [id number] RV Lead [employer] 0672 [id number] LV Lead [employer] 4674 [id number] PACE/SENSE DATA: Sensed wave (mV) Threshold (V) [...] (cGycm2) 300 CONCLUSIONS: Successful implantation of a [employer] biventricular ICD forprimary prevention and treatment of symptoms related to congestive heartfailure. Follow up in EP clinic in 1-2 months. Procedures performed: new ICD system ( cpt 04348-P4); implant LV lead attime of ICD insertion (cpt 96345) I have read, edited and approve of this report: Lalit Mcmahon MD S Cardiac Electrophysiology 07/23/2022 4:22 PM Lalit Mcmahon MD EP PROCEDURE ORDERAB LES * POCT Glucose (07/23/2022 12:54 PM EDT) [facility] Signature Glucose, POC 83 65 - 199 mg/dL [facility] Comment: Supplemental ranges: <140 mg/dL before meals <180 mg/dL all other times of the day Blood 07/23/2022 12:5 4 PM EDT 07/23/2022 12:54 PM EDT Lalit Mcmahon MD POINT OF CARE TEST O RDERABLES Performing Organization Address City/[facility]/ZIP Co de Phone Number [facility] [place] [address] * EKG 12 Lead (07/23/2022 12:33 PM EDT) Ventricular rate 72 BPM MUSE SYSTEM Atrial Rate 72 BPM MUSE SYSTEM P-R Interval 158 ms MUSE SYSTEM QRS Duration 176 ms MUSE SYSTEM Q-T Interval 458 ms MUSE SYSTEM QTC Calculated (Bezet) 501 ms MUSE SYSTEM Calculated P Laurel 34 degrees MUSE SYSTEM Calculated R [place]urel 12 degrees MUSE SYSTEM Calculated T Laurel -173 degrees MUSE SYSTEM INTERPRETATION Normal sinus rhythm Left bundle branch block Abnormal ECG No previous ECGs available Confirmed by MD Salome, Lalit ([id number]) on 07/23/2022 1:19:03 PM MUSE SYSTEM 07/23/2022 12:3 3 PM EDT 07/23/2022 1:19 PM EDT Lalit Mcmahon MD ECG ORDERABLES Performing Organization Address [facility]/ZIP Co de Phone Number MUSE SYSTEM * Differential, Automated (07/23/2022 11:55 AM EDT) Neutrophil % 62.6 % [facility] Neutrophil Absolute 4.14 1.70 - 6.10 x10(3)/[facility] LABORATORY Lymph % 27.0 % [facility] Lymphocytes Abs 1.8 0.9 - 3.2 x10(3)/[facility] LABORATORY Monocyte % 7.3 % [facility] ITAL LAB[facility] Monocyte Abs 0.5 0.3 - 0.9 x10(3)/[facility] LABORATORY Eos % 2.3 % [facility] Eosinophils Abs 0.2 0.0 - 0.4 x10(3)/[facility] LABORATORY Basophil % 0.6 % [facility] ITAL LABORATORY Baso Absolute 0.0 0.0 - 0.1 x10(3)/[facility] LABORATORY Immature Gran % 0.20 % [facility] Comment: Immature granulocytes(IG's)percentage and absolute count will include metamyelocytes, myelocytes, and promyelocytes. Blood smears from CBCs yielding IG's will be scanned manually for concordance. If this scan disagrees with the automated IG or if promyelocytes are noted, a manual differential will be performed. Immature Gran Absolute 0.01 0.00 - 0.04 x10(3)/[facility] LABORATORY Blood 07/23/2022 11:5 5 AM EDT 07/23/2022 12:07 PM EDT Narrative Resulting Agency Comment Spec In Lab Lalit Mcmahon MD HEMATOLOGY ORDERABLE S [facility] [place] [address] * Hemogram (07/23/2022 11:55 AM EDT) White Blood Cell 6.6 4.0 - 9.5 x10(3)/[facility] LABORATORY Red Blood Cell 4.50 4.00 - 5.21 x10(6)/[facility] LAB[facility]ATORY Hemoglobin 13.7 11.7 - 15.5 g/dL [facility] Hematocrit 42.5 35.7 - 45.8 % [facility] Mean Cell Volume 94.4 82.6 - 94.4 fL [facility] Mean Cell Hemoglobin 30.4 27.1 - 32.0 pg [facility] Mean Cell Hemoglobin Concentration 32.2 31.7 - 35.0 g/dL [facility] Platelet 193 145 - 357 x10(3)/[facility] LABORATORY RDW Standard Deviation 45.5 37.0 - 46.0 fL [facility] RDW coefficient of variation 13.2 11.5 - 14.1 % [facility] Mean Platelet Volume 9.5 7.6 - 12.9 fL [facility] NRBC% auto 0.0 % [facility] ITAL LABORAT[facility] NRBC Absolute 0.000 0.000 - 0.000 x10(3)/[facility] LABORATORY Blood 07/23/2022 11:5 5 AM EDT 07/23/2022 12:07 PM EDT Narrative Resulting Agency Comment Spec In Lab Lalit Mcmahon MD HEMATOLOGY ORDERABLE S [facility] [place] [address] * (ABNORMAL) BMP w/fasting Glucose (07/23/2022 11:55 AM EDT) Glucose Fasting 110(H) 65 - 99 mg/dL [facility] Comment: ?Fasting* Glucose Interpretive [...] Mellitus, Position Statement from the [place] Diabetes Association. ??Diabetes Care, Volume 33, Supplement 1, Mar 2009 Blood Urea Nitrogen 23(H) 8 - 18 mg/dL [facility] Creatinine 1.07 0.70 - 1.20 mg/dL [facility] Sodium 141 135 - 145 mmol/L [facility] Potassium 4.8 3.5 - 5.0 mmol/L [facility] Comment: Please note: ??Patients with WBC >100,000 may have falsely elevated Potassium levels. ??For accurate Potassium quantification in these patients send serum separator tube (gold top) for subsequent determinations. ??Contact the Clinical Chemistry Laboratory if there are any questions. Chloride 106 98 - 107 mmol/L [facility] Carbon Dioxide 26 22 - 31 mmol/L [facility] Anion Gap 9 5 - 15 mmol/L [facility] Calcium 9.7 8.5 - 10.5 mg/dL [facility] Est Glomerular Filtration Rate 55(L) >=60 mL/min/1. 73 m?? [facility] Comment: This patient's estimated [...] MD CHEMISTRY ORDERABLES Performing Organization Address [facility] Co de Phone Number [facility] [place] [address] * Prothrombin Time (07/23/2022 11:55 AM EDT) Prothrombin Time 11.7 9.4 - 12.5 sec [facility] International Normalization Ratio 1.0 [facility] Comment: An INR <2.0 [...] ORDERABLE S Performing Organization Address City/[facility] Co de Phone Number [facility] [place] [address] documented in this encounter Visit Diagnoses Diagnosis HFrEF (heart failure with reduced ejection fraction)- Primary Left bundle branch block Other left bundle branch block Nonischemic cardiomyopathy Other primary cardiomyopathies Cardiac resynchronization therapy defibrillator (POWER ELECTRONICS RESEARCH ENGINEER-D) in place Left bundle branch block [...] 2 g, Intravenous, ONCE, 1 dose, On Ymra 07/23/22 at 1245, Administer over 30 Minutes, [...] Routine documented in this encounter Care Teams Non Ferrous Material Handler Relationship Specialty Start Date End Date Lolly Oliveira MD [address] [place] [address] PCP - General 07/17/13 documented as of this encounter
--- OUTSIDE RECORDS SUMMARY | 2024-04-05 11:18 | XMS_ITS | Encounter Summary ---
Author Organization [facility] [place] [address] Care Team Providers Care Biomedical Equipment Specialist Name Role Phone Lolly Oliveira MD Primary Care Provider [phone] Encounter Details Date Type Department Care Team (Latest Contact Info) Description 01/16/2024 10:00 AM EST - 01/16/2024 11:59 PM EST Hospital Encounter Non-[place] [phone] Discharge Disposition: Home Social History Tobacco Use [...] with spacer fluticasone propionate (Flonase) 50 mcg/actuation [place], Suspension 1 spray by Each Nare route daily as needed. documented as of this encounter Plan of Treatment Upcoming Encounters Date Type Department Care Team (Late st Contact Info) Description 04/15/2024 10:00 AM EST Hospital Encounter Non-[place] [phone] Arrived documented as of this encounter Procedures [...] Date Lolly Oliveira MD [address] [place] [address] PCP - General 07/17/13 documented as of this encounter
--- OUTSIDE RECORDS SUMMARY | 2024-04-05 11:18 | XMS_ITS | Encounter Summary ---
Author Organization [facility] [place] [address] Care Team Providers Care Flight Communications Officer Name Role Phone Lolly Oliveira MD Primary Care Provider [phone] Reason for Visit * Reason Comments Follow-up 8 weeks UVB treatmen t twice weekly Encounter Details Date Type Department Care Team (Late st Contact Info) Description 07/19/2023 11:00 AM EDT Office Visit Dermatology at [address] [phone] Clay Ramírez MD [address], ERIKA A DERMATOLOGY [place], [place] [id number] Psoriasis Social History Tobacco Use Types Packs/Day [...] [facility] Hospital Encounter Non[place] [address] Arrived documented as of this encounter Visit Diagnoses Diagnosis Psoriasis Other psoriasis documented in this encounter Care Teams Flight Communications Officer Relationship Specialty Start Date End Date Lolly Oliveira MD [address] [place] [address] PCP - General 07/17/13 documented as of this encounter
--- OUTSIDE RECORDS SUMMARY | 2024-04-05 11:18 | XMS_ITS | Encounter Summary ---
Author Organization [facility] Address [facility] [place] [address] Care Team Providers Care Development Intern Name Role Phone Lolly Oliveira MD Primary Care Provider [phone] Reason for Visit * Auth/Cert (Routine) Specialty Diagnoses / Procedures Referred By Contac t Referred To Contact Diagnoses Left bundle-branch block, unspecified Other cardiomyopathies Left bundle branch block [I44.7]Nonischemic cardiomyopathy [I42.8] Procedures PRG CATH PLMT LEFT HEART CATH & ARTS W/INJ & ANGIO IMG S&I ELECTROPHYSIOLOGY PROCEDURE Lalit Mcmahon MD [facility] [place] [address] [facility] Referral ID Status Reason Start Date Expiration Date Visits Re quested Visits Authorized [id number] 1 1 Encounter Details Date Type Department Care Team (Late st Contact Info) Description 07/23/2022 1:08 PM EDT Anesthesia Event [place] [address] Monae Gonzalez MD [facility] [place] [address] Maria Elena Snyder CRNA [facility] [place] [address] Anesthesia Record Procedure Summary Procedure Name Responsible [...] 1307; median cubital vein (antecubital fossa), right; ykgi-hdb-yzovaw catheter system; Anatomical Landmarks; 20 gauge; 07/24/22; [...] 1343; metacarpal vein (top of hand), left; mnce-gxi-omwrew catheter system; Anatomical Landmarks; US Not Used; [...] Summary Date: 07/23/22 Room / Location: [facility] A-LAB ROOM 3 / [facility] EP LABS Anesthesia Start: 1308 Anesthesia Stop: 1633 Procedure: ELECTROPHYSIOLOGY PROCEDURE (Left) Diagnosis: Left bundle branch block Nonischemic cardiomyopathy (Left bundle branch block [I44.7]Nonischemic cardiomyopathy [I42.8]) Providers: Lalit Mcmahon MD Responsible Provider: Monae Gonzalez MD Anesthesia Type: general ASA Status: 4 All Anesthesia Providers: Anesthesiologist: Monae Gonzalez MD; Dominique Sen MD SEED YEAST OPERATOR: Maria Elena Snyder CRNA Vitals Value [...] and Nonischemic CM (EF 15-20%)who presents for SHELLFISH MANAGER-D. No prior anesthetic records. Pt states [...] daughter/son and patient who. Plan discussed with SEED YEAST OPERATOR. Anesthesia Screening documented in this encounter Plan of Treatment Upcoming Encounters Date Type Department Care Team (Late st Contact Info) Description 04/15/2024 10:00 AM [facility] Hospital Encounter [place] [address] Arrived documented as of this [...] documented in this encounter Care Teams Development Intern Relationship Specialty Start Date End Date Lolly Oliveira MD [address] [place] [address] PCP - General 07/17/13 documented as of this encounter
--- OUTSIDE RECORDS SUMMARY | 2024-04-05 11:18 | XMS_ITS | Encounter Summary ---
Author Organization [facility] [place] [address] Care Team Providers Care Electrical Hardware Engineer Name Role Phone Lolly Oliveira MD Primary Care Provider [phone] Encounter Details Date Type Department Care Team (Late st Contact Info) Description 11/16/2022 Telephone Cardiology at [address] [phone] Luna Rousseau, RN Social History Tobacco Use [...] BP today was 118/57 at CR at [facility]. Pt is going twice a [...] [facility] Hospital Encounter Non-Invasive [place] [address] Arrived documented as of this encounter Visit Diagnoses Not on filedocumented in this encounter Care Teams Electrical Hardware Engineer Relationship Specialty Start Date End Date Lolly Oliveira MD [address] [place] [address] PCP - General 07/17/13 documented as of this encounter
--- OUTSIDE RECORDS SUMMARY | 2024-04-05 11:18 | XMS_ITS | Encounter Summary ---
[place] [address] Care Team Providers Care Cement Handler Name Role Phone Lolly Oliveira MD Primary Care Provider [phone] Encounter Details Date Type Department Care Team (Late st Contact Info) Description 04/09/2022 Refill Dermatology at [address] [address] Nora Meredith, RN [facility] Social History Tobacco Use Types Packs/Day Years [...] [facility] Hospital Encounter Non[place] [address] Arrived documented as of this encounter Visit Diagnoses Not on filedocumented in this encounter Care Teams Cement Handler Relationship Specialty Start Date End Date Lolly Oliveira MD [address] [place] [address] PCP - General 07/17/13 documented as of this encounter
--- OUTSIDE RECORDS SUMMARY | 2024-04-05 11:18 | XMS_ITS | Encounter Summary ---
Author Organization [facility] Address [facility] [place] [address] Care Team Providers Care Fashion Model Name Role Phone Lolly Oliveira MD Primary [...] [facility] [address] [facility] Referral ID Status Reason Start Date Expiration Date Visits Re quested Visits Authorized [id number] 1 1 Encounter Details Date Type Department Care Team (Latest Contact Info) Description 07/23/2022 11:39 AM EDT - 07/24/2022 10:23 AM EDT Hospital [place] [phone] Lalit Mcmahon MD [facility] [place] [address] Left bundle branch block; Nonischemic cardiomyopathy; Cardiac resynchronization therapy defibrillator (ONCOLOGY TRANSPLANT NETWORK MANAGER-D) in place Discharge Disposition: Home Social [...] Patient Age: 71 y.o. Language: Citizen Of [place] Race: White Ethnicity: Not nor Admit date: 07/23/2022 Discharge date and time: 07/24/22 Attending Physician: Lalit Mcmahon MD Discharge Physician: Lalit Mcmahon MD Follow-up Recommendations for Providers: - s/p ONCOLOGY TRANSPLANT NETWORK MANAGER-D implant - post implant QRS 130 [...] lentigo Operations/Major Procedures: 07/23/22: [facility] ONCOLOGY TRANSPLANT NETWORK MANAGER-D implant History of Presentation: 71 y.o. female with a history of HFrEF, LBBB, QRS >150, NYHA II who is POD#1 of ONCOLOGY TRANSPLANT NETWORK MANAGER-D implant ([employer]). Hospital Course: Elective admission for ONCOLOGY TRANSPLANT NETWORK MANAGER-D implant Admitted post-implant for pain management, [...] (heart failure with reduced ejection fraction) [I50.20] ONCOLOGY TRANSPLANT NETWORK MANAGER-D implant Admission Condition: good Indication for [...] g Refills: 3 fluticasone propionate 50 mcg/actuation [place], Suspension Commonly known as: Flonase 1 spray [...] Make sure to use a cloth grader supervisor (such as a towel) in between [...] F. The office scheduling phone number is [phone]. ARM MOVEMENT RESTRICTIONS POST-IMPLANT - Do not [...] please call the Cardiac ElectrophysiologyTriage Nurse at [phone], option 3. General Instructions None Discharge References/Attachments [...] Make sure to use a cloth grader supervisor (such as a towel) in between [...] F. The office scheduling phone number is [phone]. ARM MOVEMENT RESTRICTIONS POST-IMPLANT - Do not [...] please call the Cardiac ElectrophysiologyTriage Nurse at [phone], option 3. documented in this encounter Medications [...] with spacer fluticasone propionate (Flonase) 50 mcg/actuation [place], Suspension 1 spray by Each Nare route [...] Cardiac Electrophysiology Post-Implant Device Interrogation Luna Mott [id number] 07/24/2022 History: Luna Mott is a 71 y.o. female with a history of HFrEF, LBBB, QRS >150, NYHA II who is POD#1 of ONCOLOGY TRANSPLANT NETWORK MANAGER-D implant ([employer]). Overall feels well this morning. Ready [...] WOB Neuro- A&Ox3 Device Interrogation: Data ?? Equipment Maintenance Supervisor Model # Serial # Generator [employer] [id number] Atrial Lead [employer] [id number] RV Lead [employer] 0672 [id number] LV Lead [employer] [id number] ?? Diagnostics Pacing Mode: DDD 60-130 Underlying Rhythm: [place] Atrial Episodes: None Ventricular Episodes: None FINAL PROGRAMMING: Pacing: Mode Lower rate (ppm) Upper rate (ppm) ?? DDD 60 130 VF: Rate (bpm) #Antitachycardia pacing First shock energy (J) ?? 200 Quick convert 41 VT: 170 Monitor only Monitor only ? Battery and Leads Impedances (ohms) Sensing (mV) Thresholds HV RA RV LV RA RV LV RA RV LV 73 379 760 1704 (LVa) 7.7 13.1 >25 0.4V @ 0.4 ms 0.4V @ 0.4 ms 0.5 V @ 1.0 ms POD#1 CXR: All leads in nominal positioning Impression: 71 y.o. female who is s/p ONCOLOGY TRANSPLANT NETWORK MANAGER-D implant for LBBB, NYHA II, HFrEF. [...] ([facility]) Fadi Nunez MD 07/24/2022 Pager: [phone] I met with the patient today and [...] agreement. ? Dr. Lalit Mcmahon, electrophysiology attending ([id number]) * Zaria Wright RN - 07/23/2022 8:28 [...] HF, QRS > 150 ms presents for ONCOLOGY TRANSPLANT NETWORK MANAGER-D placement. ROS: Denies recent fevers or [...] 0.9) flush 5 mL 5 mL Intravenous [id number] ramos MD ??? sodium chloride 0.9 % [...] HF, QRS > 150 ms presents for ONCOLOGY TRANSPLANT NETWORK MANAGER-D placement. Backup would be LBBAP lead. Antibiotics: cefazolin Rationales for, intended benefits and potential risk of planned procedures reviewed. The patient indicated understanding and agreement with the plan. Informed consent signed. Procedure checklist completed. Fadi Nunez MD Cardiac Electrophysiology Fellow [facility] Pager [phone] 07/23/2022 I met with the patient today [...] agreement. ? Dr. Lalit Mcmahon, electrophysiology attending ([id number]) documented in this encounter Miscellaneous Notes * Brief Op Note - Lalit Mcmahon MD - 07/23/2022 4:04 PM EDT Brief Operative Note Patient Name: Luna Mott : [id number] MR#: [id number] Case Date: 07/23/2022 Surgeon: Surgeon(s) and Role: [...] AM EST Hospital Encounter [place] [address] Arrived Scheduled Orders Name Type Priority Associated Diagnoses Orde r Schedule EKG 12 Lead ECG Routine Cardiac resynchronization therapy defibrillator (ONCOLOGY TRANSPLANT NETWORK MANAGER-D) in place One Time for 1 [...] (Bezet) 522 ms MUSE SYSTEM Calculated R [place] 78 degrees MUSE SYSTEM Calculated T [place] -71 degrees MUSE SYSTEM INTERPRETATION AV dual-paced [...] have questions please contact the health manager care that requested your imaging first. ? [...] who have questions please contactthe health manager care that requested your imaging first. Lalit Mcmahon MD IMG DX ORDERABLES * ELECTROPHYSIOLOGY PROCEDURE (07/23/2022 1:11 PM EDT) Anatomical Region Laterality Modality Other Narrative 07/23/2022 4:24 PM EDT Table formatting from the original result was not included. BIVENTRICULAR ICD IMPLANTATION Retail Marketing Specialist: Lalit Mcmahon MD Fellow: Fadi Nunez [...] lateral branch of the CS in the CHINESE view. This branch was cannulated with a [...] the entire procedure. LEAD AND GENERATOR DATA: Equipment Maintenance Supervisor Model # Serial # Generator [employer] [id number] Atrial Lead [employer] [id number] RV Lead [employer] 0672 [id number] LV Lead [employer] 4674 [id number] PACE/SENSE DATA: Sensed wave (mV) Threshold (V) [...] (cGycm2) 300 CONCLUSIONS: Successful implantation of a [employer] biventricular ICD for primary prevention and treatment of symptoms related to congestive heart failure. Follow up in EP clinic in 1-2 months. Procedures performed: new ICD system ( cpt 57970-N2); implant LV lead at time of ICD insertion (cpt 17612) I have read, edited and approve of this report: Lalit Mcmahon MD S Cardiac Electrophysiology 07/23/2022 4:22 PM Procedure Note Lalit Mcmahon MD - 07/23/2022 BIVENTRICULAR ICD IMPLANTATION Retail Marketing Specialist: Lalit Mcmahon MD Fellow: Fadi Nunez [...] appropriate lateralbranch of the CS in the CHINESE view. This branch was cannulated with a [...] in the entireprocedure. LEAD AND GENERATOR DATA: Equipment Maintenance Supervisor Model # Serial # Generator [employer] [id number] Atrial Lead [employer] [id number] [id number] RV Lead [employer] 0672 [id number] LV Lead [employer] 4674 370602 PACE/SENSE DATA: Sensed wave (mV) Threshold (V) [...] (cGycm2) 300 CONCLUSIONS: Successful implantation of a [employer] biventricular ICD forprimary prevention and treatment of symptoms related to congestive heartfailure. Follow up in EP clinic in 1-2 months. Procedures performed: new ICD system ( cpt 46173-N8); implant LV lead attime of ICD insertion (cpt 34358) I have read, edited and approve of this report: Lalit Mcmahon MD [facility] Cardiac Electrophysiology 07/23/2022 4:22 PM Lalit Mcmahon MD EP PROCEDURE ORDERAB LES * POCT Glucose (07/23/2022 12:54 PM EDT) Glucose, POC 83 65 - 199 mg/dL [facility] Comment: Supplemental ranges: <140 mg/dL before meals <180 mg/dL all other times of the day Blood 07/23/2022 12:5 4 PM EDT 07/23/2022 12:54 PM EDT Lalit Mcmahon MD POINT OF CARE TEST O RDERABLES Performing Organization Address [facility] Co de Phone Number [facility] [place] [address] * EKG 12 Lead (07/23/2022 12:33 PM EDT) Ventricular rate 72 BPM MUSE SYSTEM Atrial Rate 72 BPM MUSE SYSTEM P-R Interval 158 ms MUSE SYSTEM QRS Duration 176 ms MUSE SYSTEM Q-T Interval 458 ms MUSE SYSTEM QTC Calculated (Bezet) 501 ms MUSE SYSTEM Calculated P [place] 34 degrees MUSE SYSTEM Calculated R [place] 12 degrees MUSE SYSTEM Calculated T [place] -173 degrees MUSE SYSTEM INTERPRETATION Normal sinus rhythm Left bundle branch block Abnormal ECG No previous ECGs available Confirmed by MD Salome, Lalit ([id number]) on 07/23/2022 1:19:03 PM MUSE SYSTEM 07/23/2022 12:3 3 PM EDT 07/23/2022 1:19 PM EDT Lalit Mcmahon MD ECG ORDERABLES Performing Organization Address [facility] de Phone Number MUSE SYSTEM * Differential, Automated (07/23/2022 11:55 AM EDT) Neutrophil % 62.6 % [facility] Neutrophil Absolute 4.14 1.70 - 6.10 x10(3)/[facility] Lymph % 27.0 % [facility] Lymphocytes Abs 1.8 0.9 - 3.2 x10(3)/[facility]AT[facility] Monocyte % 7.3 % [facility] Monocyte Abs 0.5 0.3 - 0.9 x10(3)/[facility] Eos % 2.3 % [facility] Eosinophils Abs 0.2 0.0 - 0.4 x10(3)/[facility] LABORATORY Basophil % 0.6 % [facility] IT[facility] Baso Absolute 0.0 0.0 - 0.1 x10(3)/[facility] Immature Gran % 0.20 % [facility] Comment: Immature granulocytes(IG's)percentage and absolute count will include metamyelocytes, myelocytes, and promyelocytes. Blood smears from CBCs yielding IG's will be scanned manually for concordance. If this scan disagrees with the automated IG or if promyelocytes are noted, a manual differential will be performed. Immature Gran Absolute 0.01 0.00 - 0.04 x10(3)/[facility] Blood 07/23/2022 11:5 5 AM EDT 07/23/2022 12:07 PM EDT Narrative Resulting Agency Comment Spec In Lab Lalit Mcmahon MD HEMATOLOGY ORDERABLE S [facility] [place] [address] * Hemogram (07/23/2022 11:55 AM EDT) White Blood Cell 6.6 4.0 - 9.5 x10(3)/[facility] Red Blood Cell 4.50 4.00 - 5.21 x10(6)/[facility] Hemoglobin 13.7 11.7 - 15.5 g/dL [facility] Hematocrit 42.5 35.7 - 45.8 % [facility] Mean Cell Volume 94.4 82.6 - 94.4 fL [facility] Mean Cell Hemoglobin 30.4 27.1 - 32.0 pg [facility] Mean Cell Hemoglobin Concentration 32.2 31.7 - 35.0 g/dL [facility] Platelet 193 145 - 357 x10(3)/[facility]AT[facility] RDW Standard Deviation 45.5 37.0 - 46.0 fL [facility] RDW coefficient of variation 13.2 11.5 - 14.1 % [facility] Mean Platelet Volume 9.5 7.6 - 12.9 fL [facility] NRBC% auto 0.0 % [facility] NRBC Absolute 0.000 0.000 - 0.000 x10(3)/mcL [facility] Blood 07/23/2022 11:5 5 AM EDT 07/23/2022 12:07 PM EDT Narrative Resulting Agency Comment Spec In Lab Lalit Mcmahon MD HEMATOLOGY ORDERABLE S [facility] [address] [place] [address] * (ABNORMAL) BMP w/fasting Glucose (07/23/2022 11:55 AM EDT) Glucose Fasting 110(H) 65 - 99 mg/dL [facility] Comment: ?Fasting* Glucose Interpretive Criteria Normal [...] of Diabetes Mellitus, Position Statement from the [place] [employer]. ??Diabetes Care, Volume 33, Supplement 1, Mar 2009 Blood Urea Nitrogen 23(H) 8 - 18 mg/dL [facility] Creatinine 1.07 0.70 - 1.20 mg/dL [facility] Sodium 141 135 - 145 mmol/L [facility] Potassium 4.8 3.5 - 5.0 mmol/L [facility] Comment: Please note: ??Patients with WBC >100,000 may have falsely elevated Potassium levels. ??For accurate Potassium quantification in these patients send serum separator tube (gold top) for subsequent determinations. ??Contact the Clinical Chemistry Laboratory if there are any questions. Chloride 106 98 - 107 mmol/L [facility] Carbon Dioxide 26 22 - 31 mmol/L [facility] Anion Gap 9 5 - 15 mmol/L [facility] Calcium 9.7 8.5 - 10.5 mg/dL [facility] Est Glomerular Filtration Rate 55(L) >=60 mL/min/1. 73 m?? [facility] Comment: This patient's estimated GFR was [...] Mcmahon MD CHEMISTRY ORDERABLES Performing Organization Address [facility] Co de Phone Number [facility] [place] [address] * Prothrombin Time (07/23/2022 11:55 AM EDT) Prothrombin Time 11.7 9.4 - 12.5 sec [facility] International Normalization Ratio 1.0 [facility] Comment: An INR <2.0 indicates adequate [...] MD HEMATOLOGY ORDERABLE S Performing Organization Address [facility] Co de Phone Number [facility] [place] [address] documented in this encounter Visit Diagnoses Diagnosis HFrEF (heart failure with reduced ejection fraction)- Primary Left bundle branch block Other left bundle branch block Nonischemic cardiomyopathy Other primary cardiomyopathies Cardiac resynchronization therapy defibrillator (ONCOLOGY TRANSPLANT NETWORK MANAGER-D) in place Left bundle branch block [...] EP (Intra-Procedure), Routine 1418 (Given - Provider: aFdi Nunez MD) lisinopriL (Zestril) tablet 20 mg [...] Routine documented in this encounter Care Teams Fashion Model Relationship Specialty Start Date End Date Lolly Oliveira MD [address] [place] [address] PCP - General 07/17/13 documented as of this encounter
--- OUTSIDE RECORDS SUMMARY | 2024-04-05 11:18 | XMS_ITS | Encounter Summary ---
Author Organization [facility] Address [address] [place] [address] Care Team Providers Care Manager Market Intelligence Name Role Phone Lolly Oliveira MD Primary Care Provider [phone] Encounter Details Date Type Department Care Team (Late st Contact Info) Description 05/29/2002 Results Only [facility] [place] conversion [address] [place] [address] Silvia Diehl, [address] [place] [id number] Social History Tobacco Use Types Packs/Day Years [...] Name: ? LYLEJING ? Accession #: ? [id number] : ? 1950 (Age: 51) ??F ?Collect Date: ? 05/29/2002 Location: ? [facility] ? Receive Date: ? 05/31/2002 Provider: ?SILVIA DIEHL CHRISTIAN EDUCATION DIRECTOR Copy to: ? Specimen/Source: ?ThinPrep Pap [...] [facility] 05/29/2002 05/31/2002 us Silvia Diehl CHRISTIAN EDUCATION DIRECTOR PATHOLOGY ORDERABLES Final R esult [facility] [address] [place] [address] documented in this encounter Visit Diagnoses Not on filedocumented in this encounter Care Teams Manager Market Intelligence Relationship Specialty Start Date End Date Lolly Oliveira MD [address] [place] [address] PCP - General 11/13/08 documented as of this encounter
--- OUTSIDE RECORDS SUMMARY | 2024-04-05 11:18 | XMS_ITS | Encounter Summary ---
Author Organization [facility] Address [facility] [place] [address] Care Team Providers Care Turkey Boner Name Role Phone Lolly Oliveira MD Primary Care Provider [phone] Encounter Details Date Type Department Care Team (Late st Contact Info) Description 07/16/2022 Telephone Cardiology at [address] [phone] Lalit Mcmahon MD [facility] [place] [place] [address] Social History Tobacco Use Types Packs/Day Years [...] her nonischemic cardiomyopathy. She is scheduled for FOLDED CLOTH TAPER-D implantation next week and looks forward to the procedure. We will see each other next week. Lalit Mcmahon MD [facility] Cardiac Electrophysiology 07/16/2022 8:52 AM documented in this encounter Plan of Treatment Upcoming Encounters Date Type Department Care Team (Late st Contact Info) Description 04/15/2024 10:00 AM EST Hospital Encounter Non-Invasive [place] [address] Arrived documented as of this encounter Visit Diagnoses Not on filedocumented in this encounter Care Teams Turkey Boner Relationship Specialty Start Date End Date Lolly Oliveira MD [address] [place] [address] PCP - General 07/17/13 documented as of this encounter
--- OUTSIDE RECORDS SUMMARY | 2024-04-05 11:18 | XMS_ITS | Encounter Summary ---
Author Organization [facility] [place] [address] Care Team Providers Care Skiver Box Toe Name Role Phone Lolly Oliveira MD Primary Care Provider [phone] Encounter Details Date Type Department Care Team (Late st Contact Info) Description 05/18/2023 Telephone Dermatology at [address] [address] Nora Meredith LPN Social History [...] [facility] Hospital Encounter Non[place] [phone] Arrived documented as of this encounter Visit Diagnoses Not on filedocumented in this encounter Care Teams Skiver Box Toe Relationship Specialty Start Date End Date Lolly Oliveira MD [address] [place] [address] PCP - General 07/17/13 documented as of this encounter
--- OUTSIDE RECORDS SUMMARY | 2024-04-05 11:18 | XMS_ITS | Encounter Summary ---
Author Organization [facility] [place] [address] Care Team Providers Care Wood Floor Refinisher Name Role Phone Lolly Oliveira MD Primary Care Provider [phone] Encounter Details Date Type Department Care Team (Latest Contact Info) Description 07/20/2023 10:00 AM EDT - 07/20/2023 11:59 PM EDT Hospital Encounter Non-In[place] [phone] Discharge Disposition: Home Social History Tobacco Use [...] with spacer fluticasone propionate (Flonase) 50 mcg/actuation [place], Suspension 1 spray by Each Nare route daily as needed. documented as of this encounter Plan of Treatment Upcoming Encounters Date Type Department Care Team (Late st Contact Info) Description 04/15/2024 10:00 AM EST Hospital Encounter Non-Invasive [place] [address] Arrived documented as of this encounter Procedures [...] filedocumented in this encounter Care Teams Wood Floor Refinisher Relationship Specialty Start Date End Date Lolly Oliveira MD [address] [place] [address] PCP - General 07/17/13 documented as of this encounter
--- OUTSIDE RECORDS SUMMARY | 2024-04-05 11:18 | XMS_ITS | Encounter Summary ---
Author Organization [facility] [place] [address] Care Team Providers Care Service Establishment Attendant Name Role Phone Lolly Oliveira MD Primary Care Provider [phone] Reason for Visit * Reason Comments Follow-up Encounter Details Date Type Department Care Team (Late st Contact Info) Description 07/02/2022 8:00 AM EDT Office Visit Dermatology at [address] [phone] Clay Ramírez MD [address] [facility] [place] [address] Psoriasis, guttate Social History Tobacco Use Types [...] [facility] Hospital Encounter Non-Invasive [place] [phone] Arrived documented as of this encounter Visit Diagnoses Diagnosis Psoriasis, guttate Other psoriasis documented in this encounter Care Teams Service Establishment Attendant Relationship Specialty Start Date End Date Lolly Oliveira MD [address] [place] [address] PCP - General 07/17/13 documented as of this encounter
--- OUTSIDE RECORDS SUMMARY | 2024-04-05 11:18 | XMS_ITS | Encounter Summary ---
Author Organization [facility] [place] [address] Care Team Providers Care High Pressure Cleaner Name Role Phone Lolly Oliveira MD Primary Care Provider [phone] Encounter Details Date Type Department Care Team (Late st Contact Info) Description 05/03/2023 Telephone Cardiology at [address] [phone] Lalit Mcmahon MD [facility] [place] [address] Social History Tobacco Use Types Packs/Day Years [...] AM EST Hospital Encounter Non-[place] [address] Arrived documented as of this encounter Visit Diagnoses Not on filedocumented in this encounter Care Teams High Pressure Cleaner Relationship Specialty Start Date End Date Lolly Oliveira MD [address] [place] [address] PCP - General 07/17/13 documented as of this encounter
--- OUTSIDE RECORDS SUMMARY | 2024-04-05 11:18 | XMS_ITS | Encounter Summary ---
Author Organization [place] [address] Care Team Providers Care Hot Mill Roller Name Role Phone Lolly Oliveira MD Primary Care Provider [phone] Encounter Details Date Type Department Care Team (Late st Contact Info) Description 05/18/2023 Refill Dermatology at [address] [address] Nora Meredith LPN Social History [...] patient. She voiced understanding. Order sent to [facility] drug. documented in this encounter Plan of Treatment Upcoming Encounters Date Type Department Care Team (Late st Contact Info) Description 04/15/2024 10:00 AM EST Hospital Encounter [place] [address] Arrived documented as of this encounter Visit Diagnoses Not on filedocumented in this encounter Care Teams Hot Mill Roller Relationship Specialty Start Date End Date Lolly Oliveira MD [address] [place] [address] PCP - General 07/17/13 documented as of this encounter
--- OUTSIDE RECORDS SUMMARY | 2024-04-05 11:19 | XMS_ITS | Encounter Summary ---
Author Organization [facility] [place] [address] Care Team Providers Care Family Dinner Service Specialist Name Role Phone Lolly Oliveira MD Primary Care Provider [phone] Reason for Visit * Reason Comments Skin Check Encounter Details Date Type Department Care Team (Late st Contact Info) Description 11/23/2014 10:00 AM EDT Office Visit Dermatology at [address] [phone] Clay Ramírez MD [address] [facility] [place] [address] Dermatofibroma; Nevus; Solar lentigo Discharge Disposition: Home [...] [facility]ICAL [facility] Hospital Encounter Non[place] [address] Arrived documented as of this encounter Visit Diagnoses Diagnosis Dermatofibroma Benign neoplasm of skin, site unspecified Nevus Benign neoplasm of skin, site unspecified Solar lentigo Other dyschromia documented in this encounter Care Teams Family Dinner Service Specialist Relationship Specialty Start Date End Date Lolly Oliveira MD [address] [place] [address] PCP - General 07/17/13 documented as of this encounter
--- OUTSIDE RECORDS SUMMARY | 2024-04-05 11:19 | XMS_ITS | Encounter Summary ---
[place] [address] Care Team Providers Care Airline Dispatcher Name Role Phone Lolly Oliveira MD Primary Care Provider [phone] Encounter Details Date Type Department Care Team (Latest Contact Info) Description 07/26/2013 9:45 AM EDT - 07/26/2013 11:59 PM EDT Hospital [place] [address] Mammographic microcalcification Social History Tobacco Use Types [...] Hospital Encounter Non[place] [address] Arrived documented as of this encounter Procedures [...] Name: ?? JING MOTT ? Acc #: ?[id number] ?Pt. ? Col Date: ?? 07/26/2013 ? [...] Name: ?? JING MOTT ? Acc #: ?[id number] ?Pt. ? Col Date: ?? 07/26/2013 ? [...] MD PATHOLOGY/CYTOLOGY O RDERABLES Performing Organization Address City/State/[facility] Co ok Phone Number [facility] [place] [address] * Mammo Specimen Imaging During Biopsy (07/26/2013 [...] microcalcification documented in this encounter Care Teams Airline Dispatcher Relationship Specialty Start Date End Date Lolly Oliveira MD [address] [place] [address] PCP - General 07/17/13 documented as of this encounter
--- OUTSIDE RECORDS SUMMARY | 2024-04-05 11:19 | XMS_ITS | Encounter Summary ---
Author Organization [facility]ly [facility] [address] Care Team Providers Care Account Development Associate Name Role Phone Lolly Oliveira MD Primary Care Provider [phone] Encounter Details Date Type Department Care Team (Late st Contact Info) Description 04/01/2021 3:30 PM EST Office Visit Dermatology at [address] [phone] Clay Ramírez MD [address], [place] [address] Psoriasis, guttate Social History Tobacco Use Types [...] AM EST Hospital Encounter Non[place] [address] Arrived documented as of this encounter Visit Diagnoses Diagnosis Psoriasis, guttate Other psoriasis documented in this encounter Care Teams Account Development Associate Relationship Specialty Start Date End Date Lolly Oliveira MD [address] [place] [address] PCP - General 07/17/13 documented as of this encounter
--- OUTSIDE RECORDS SUMMARY | 2024-04-05 11:19 | XMS_ITS | Encounter Summary ---
Author Organization [facility] [place] [address] Care Team Providers Care High School Guidance Counselor Name Role Phone Lolly Oliveira MD Primary Care Provider [phone] Encounter Details Date Type Department Care Team (Latest Contact Info) Description 07/20/2013 9:26 AM EDT - 07/20/2013 11:59 PM EDT Hospital En[place] [address] CLINIC, Lolly So MD [address] [place], [place] [id number] Mammographic microcalcification Discharge Disposition: Home Social History [...] AM EST Hospital Encounter [place] [address] Arrived documented as of this encounter Procedures [...] does not layer and, therefore, are not area representative of milk of calcium. Again, these [...] does not layer and, therefore, are not area representative of milk of calcium. Again, these have an amorphous andpunctate appearance and remain indeterminate. Stereotactic guided biopsy isrecommended. Alia Fraire MD IMG MAMMO ORDERABLES documented in this encounter Visit Diagnoses Diagnosis Mammographic microcalcification documented in this encounter Care Teams High School Guidance Counselor Relationship Specialty Start Date End Date Lolly Oliveira MD [address] [place] [address] PCP - General 07/17/13 documented as of this encounter
--- OUTSIDE RECORDS SUMMARY | 2024-04-05 11:19 | XMS_ITS | Encounter Summary ---
Author Organization [facility] [place] [address] Care Team Providers Care Brim Stretching Machine Operator Name Role Phone Lolly Oliveira MD Primary Care Provider [phone] Encounter Details Date Type Department Care Team (Latest Contact Info) Description 07/17/2013 8:40 AM EDT - 07/17/2013 11:59 PM EDT Hospital Encounter XRay at [address] [place] [address] CLINIC, DR COX Discharge Disposition: Home Social [...] AM EST Hospital Encounter Non-Invasive [place] [address] Arrived documented as of this encounter Visit Diagnoses Not on filedocumented in this encounter Care Teams Brim Stretching Machine Operator Relationship Specialty Start Date End Date Lolly Oliveira MD [address] [place] [address] PCP - General 07/17/13 documented as of this encounter
--- OUTSIDE RECORDS SUMMARY | 2024-04-05 11:19 | XMS_ITS | Encounter Summary ---
Author Organization [facility] [place] [address] Care Team Providers Care Park Services Specialist Name Role Phone Lolly Oliveira MD Primary Care Provider [phone] Encounter Details Date Type Department Care Team (Latest Contact Info) Description 07/18/2013 [place] [address] Alia Fraire MD Mammographic microcalcification (Primary Dx) [...] [facility] Hospital Encounter Non-[place] [address] Arrived documented as of this encounter Results [...] are present on specimen digital X-ray. [employer] Eviva-Stereo 13 Cylinder marker clip was placed. [...] calcifications are present on specimendigital X-ray. [employer] Eviva-Stereo 13 Cylinder marker clip was placed. [...] layer and, therefore, are not sales representative adding machines of milk of calcium. Again, these have [...] layer and, therefore, are not sales representative adding machines of milk of calcium. Again, these have an amorphous andpunctate appearance and remain indeterminate. Stereotactic guided biopsy isrecommended. Alia Fraire MD IMG MAMMO ORDERABLES documented in this encounter Visit Diagnoses Diagnosis Mammographic microcalcification- Primary Mammographic microcalcification Mammographic microcalcification Mammographic microcalcification Mammographic microcalcification documented in this encounter Care Teams Park Services Specialist Relationship Specialty Start Date End Date Lolly Oliveira MD [address] [place] [address] PCP - General 07/17/13 documented as of this encounter
--- OUTSIDE RECORDS SUMMARY | 2024-04-05 11:19 | XMS_ITS | Encounter Summary ---
Author Organization [facility] [place] [address] Care Team Providers Care Hot Dip Plater Name Role Phone Lolly Oliveira MD Primary Care Provider [phone] Encounter Details Date Type Department Care Team (Latest Contact Info) Description 07/26/2013 9:44 AM EDT - 07/26/2013 11:59 PM EDT Hospital En[place] [address] CLINIC, Lolly So MD [address] [place], [place] [phone] Mammographic microcalcification Discharge Disposition: Home Social History [...] EST Hospital Encounter Non-Invasive [place] [address] Arrived documented as of this encounter Procedures [...] are present on specimen digital X-ray. A etouches-Stereo 13 Cylinder marker clip was placed. Cranio-caudal [...] mLs documented in this encounter Care Teams Hot Dip Plater Relationship Specialty Start Date End Date Lolly Oliveira MD [address] [place] [address] PCP - General 07/17/13 documented as of this encounter
--- OUTSIDE RECORDS SUMMARY | 2024-04-05 11:19 | XMS_ITS | Encounter Summary ---
Author Organization [facility] [place] [address] Care Team Providers Care Welder/Fitter Name Role Phone Lolly Oliveira MD Primary Care Provider [phone] Encounter Details Date Type Department Care Team (Latest Contact Info) Description 07/26/2013 9:45 AM EDT - 07/26/2013 11:59 PM EDT Hospital En[place] [address] Mammographic microcalcification Social History Tobacco Use Types [...] AM EST Hospital Encounter Non-Invasive [place] [address] Arrived documented as of this encounter Procedures [...] microcalcification documented in this encounter Care Teams Welder/Fitter Relationship Specialty Start Date End Date Lolly Oliveira MD [address] [place] [address] PCP - General 07/17/13 documented as of this encounter
--- OUTSIDE RECORDS SUMMARY | 2024-04-05 11:19 | XMS_ITS | Encounter Summary ---
[place] [address] Care Team Providers Care Drug Enforcement Administration Agent Name Role Phone Lolly Oliveira MD Primary Care Provider [phone] Encounter Details Date Type Department Care Team (Late st Contact Info) Description 07/17/2013 [place] [address] Lolly Oliveira MD [address] [place], [place] [id number] Social History Tobacco Use Types Packs/Day Years [...] AM EST Hospital Encounter Non-Invasive [place] [address] Arrived documented as of this encounter Procedures Procedure Name Priority Date/Time Associated Diagnosis Comments REQUEST FOR 2ND READ MAMMO Routine 07/17/2013 8:45 AM EDT documented in this encounter Results * Request for 2nd read Mammo (07/17/2013 8:45 AM EDT) Anatomical Region Laterality Modality Other 07/17/2013 8:45 AM EDT Narrative 07/17/2013 3:57 PM EDT INTERPRETATION OF OUTSIDE MAMMOGRAMS (PERFORMED ON 07/06/13 AND 07/14/13) FROM [facility] DATED 07/17/13: ?? DIAGNOSTIC IMAGING SUMMARY: [...] (PERFORMED ON 07/06/13 AND 07/14/13) [facility] DATED 07/17/13: DIAGNOSTIC IMAGING SUMMARY: RIGHT BREAST [...] filedocumented in this encounter Care Teams Drug Enforcement Administration Agent Relationship Specialty Start Date End Date Lolly Oliveira MD [address] [place] [address] PCP - General 07/17/13 documented as of this encounter
--- OUTSIDE RECORDS SUMMARY | 2024-04-05 11:19 | XMS_ITS | Encounter Summary ---
Author Organization [facility] [place] [address] Care Team Providers Care Supervisor Stripping Name Role Phone Unavailable Primary Care Provider Unavailabl e Encounter Details Date Type Department Care Team (Late st Contact Info) Description 07/14/2013 External Results XRay at [address] [place] [place] [address] Provider, Scanning Social History Tobacco Use Types [...] AM EST Hospital Encounter Non-Invasive Cardiology Lab [facility] [place] [address] Arrived documented as of this encounter Procedures [...]
--- OUTSIDE RECORDS SUMMARY | 2024-04-05 11:19 | XMS_ITS | Encounter Summary ---
Author Organization [facility] [place] [address] Care Team Providers Care Hazardous Substances Engineer Name Role Phone Lolly Oliveira MD Primary Care Provider [phone] Encounter Details Date Type Department Care Team (Late st Contact Info) Description 10/09/2021 Telephone Dermatology at [address] [address] Nora Meredith LPN Social History [...] Contact Info) Description 04/15/2024 10:00 AM [facility] Hospital Encounter Non-Invasive [place] [address] Arrived documented as of this encounter Visit Diagnoses Not on filedocumented in this encounter Care Teams Hazardous Substances Engineer Relationship Specialty Start Date End Date Lolly Oliveira MD [address] [place] [address] PCP - General 07/17/13 documented as of this encounter
--- OUTSIDE RECORDS SUMMARY | 2024-04-05 11:19 | XMS_ITS | Encounter Summary ---
Author Organization [facility] [place] [address] Care Team Providers Care Assembler Dry Cell And Battery Name Role Phone Lolly Oliveira MD Primary Care Provider [phone] Encounter Details Date Type Department Care Team (Late Contact Info) Description 01/14/2022 Telephone Dermatology at [address] [address] Nora Meredith LPN Social History [...] return to phototherapy. New order sent to [facility]. Reviewed with patient Dr. Mar recommendation. She agrees with plan of care. Advised patient order will be sent to [facility]. She voiced understanding. documented in this encounter Plan of Treatment Upcoming Encounters Date Type Department Care Team (Late Contact Info) Description 04/15/2024 10:00 AM EST Hospital Encounter Non-Invasive [place] [address] Arrived documented as of this encounter Visit Diagnoses Not on filedocumented in this encounter Care Teams Assembler Dry Cell And Battery Relationship Specialty Start Date End Date Lolly Oliveira MD [address] [place] [address] PCP - General 07/17/13 documented as of this encounter
--- OUTSIDE RECORDS SUMMARY | 2024-04-05 11:19 | XMS_ITS | Encounter Summary ---
Author Organization [facility] [place] [address] Care Team Providers Care Oil Analyst Name Role Phone Lolly Oliveira MD Primary Care Provider [phone] Encounter Details Date Type Department Care Team (Late st Contact Info) Description 06/29/2011 [place] [address] Eleno Christian MD Social History Tobacco Use [facility] Non-Invasive [place] [address] Arrived documented as of this encounter Procedures [...] filedocumented in this encounter Care Teams Oil Analyst Relationship Specialty Start Date End Date Lolly Oliveira MD [address] [place] [address] PCP - General 07/17/13 documented as of this encounter
--- OUTSIDE RECORDS SUMMARY | 2024-04-05 11:19 | XMS_ITS | Encounter Summary ---
Author Organization [facility] [place] [address] Care Team Providers Care Refining Equipment Operator Name Role Phone Unavailable Primary Care Provider Unavailabl e Encounter Details Date Type Department Care Team (Late st Contact Info) Description 07/04/2012 [place] [address] Eleno Christian MD Social History Tobacco Use [...] EST Hospital Encounter Non-Invasive [place] [address] Arrived documented as of this encounter Procedures [...]
--- OUTSIDE RECORDS SUMMARY | 2024-04-05 11:19 | XMS_ITS | Encounter Summary ---
Author Organization [facility] [place] [address] Care Team Providers Care Call Center Recruiter Name Role Phone Unavailable Primary Care Provider Unavailabl e Encounter Details Date Type Department Care Team (Late st Contact Info) Description 07/14/2013 [place] [address] Eleno Christian MD Social History Tobacco Use [...] AM EST Hospital Encounter [place] [address] Arrived documented as of this encounter Visit Diagnoses Not on filedocumented in this encounter
--- OUTSIDE RECORDS SUMMARY | 2024-04-05 11:19 | XMS_ITS | Encounter Summary ---
Author Organization [facility] [place] [address] Care Team Providers Care Pin Drafter Name Role Phone Lolly Oliveira MD Primary Care Provider [phone] Reason for Visit * Reason Comments Psoriasis Encounter Details Date Type Department Care Team (Late st Contact Info) Description 04/09/2022 1:45 PM EST Office Visit Dermatology at [address] [address] Clay Ramírez MD [address] [facility] [place] [address] Psoriasis, guttate Social History Tobacco Use Types [...] AM EST Hospital Encounter Non-Invasive [place] [address] Arrived documented as of this encounter Visit Diagnoses Diagnosis Psoriasis, guttate Other psoriasis documented in this encounter Care Teams Pin Drafter Relationship Specialty Start Date End Date Lolly Oliveira MD [address] [place] [address] PCP - General 07/17/13 documented as of this encounter
--- OUTSIDE RECORDS SUMMARY | 2024-04-05 11:19 | XMS_ITS | Encounter Summary ---
Author Organization [facility] [place] [address] Care Team Providers Care Shoes Salesperson Name Role Phone Lolly Oliveira MD Primary Care Provider [phone] Encounter Details Date Type Department Care Team (Late st Contact Info) Description 07/26/2013 [place] [address] Eleno Christian MD Social History [...] [facility] Hospital Encounter Non[place] [address] Arrived documented as of this encounter Visit Diagnoses Not on filedocumented in this encounter Care Teams Shoes Salesperson Relationship Specialty Start Date End Date Lolly Oliveira MD [address] [place] [address] PCP - General 07/17/13 documented as of this encounter
--- OUTSIDE RECORDS SUMMARY | 2024-04-05 11:19 | XMS_ITS | Encounter Summary ---
Author Organization [facility] [place] [address] Care Team Providers Care Hand Woodworking Sander Name Role Phone Lolly Oliveira MD Primary Care Provider [phone] Reason for Visit * Reason Comments Follow-up Encounter Details Date Type Department Care Team (Late st Contact Info) Description 06/06/2021 8:45 AM EDT Office Visit Dermatology at [address] [address] Clay Ramírez MD [address] [facility] [place] [address] Psoriasis, guttate Social History Tobacco Use Types [...] AM EST Hospital Encounter [place] [address] Arrived documented as of this encounter Visit Diagnoses Diagnosis Psoriasis, guttate Other psoriasis documented in this encounter Care Teams Hand Woodworking Sander Relationship Specialty Start Date End Date Lolly Oliveira MD [address] [place] [address] PCP - General 07/17/13 documented as of this encounter
[2024-04-05 11:34] VITALS: BP 149/81; PULSE 68
--- OUTSIDE RECORDS SUMMARY | 2024-04-07 11:02 | XMS_ITS | Encounter Summary ---
Author Organization [facility] Address [address] [place] [address] Care Team Providers Care Cytogeneticist Name Role Phone Lolly Oliveira MD Primary Care Provider [phone] Encounter Details Date Type Department Care Team (Late st Contact Info) Description 06/16/[address] [facility] Laboratory Services - [facility] [address] [place], [place] [id number] Lolly Oliveira MD [address] [place], [place] [phone] Social History Tobacco Use Types Packs/Day Years [...] ? JING ALVARENGA ? Accession #: ? [id number] : ? 1950 (Age: 61) ??F ?Collect [...] ORDERABLES Final Resu lt [facility] [address] [place] [address] documented in this encounter Visit Diagnoses Not on filedocumented in this encounter Care Teams Cytogeneticist Relationship Specialty Start Date End Date Lolly Oliveira MD [address] [place] [address] PCP - General 11/13/08 documented as of this encounter
--- OUTSIDE RECORDS SUMMARY | 2024-04-07 11:02 | XMS_ITS | Clinical Summary ---
Author Organization [facility] Address [address] [place] [address] Care Team Providers Care Shot Tube Machine Tender Name Role Phone Lolly Oliveira MD Primary Care Provider [phone] Social History Tobacco Use Types Packs/Day Years [...] 08/10/2023 COVID-19 Vaccine (2023- season) 2023 Insurance [facility] Care Teams Shot Tube Machine Tender Relationship Specialty Start Date End Date Berrian, Lolly, MD [address] [place] [address] PCP - General 11/13/08
--- OUTSIDE RECORDS SUMMARY | 2024-04-07 11:02 | XMS_ITS | Encounter Summary ---
Author Organization [facility] Address [address] [place] [address] Care Team Providers Care Sanitarian Name Role Phone Lolly Oliveira MD Primary Care Provider [phone] Encounter Details Date Type Department Care Team (Late st Contact Info) Description 05/02/2004 Results Only [facility] conversion [address] [place] [address] Lolly Oliveira MD [address] [place], [place] [phone] Social History Tobacco Use Types Packs/Day Years [...] [facility]. [facility] Report Status Final [id number] [facility] 05/02/2004 9:32 EST 05/10/2004 9:32 EST us Lolly Oliveira MD MICROBIOLOGY - GENERAL ORDERABL ES Final Result [facility] [address] [place] [address] * CYTOPATHOLOGY (05/02/2004 0:00 EST) Pathology Report: CYTOPATHOLOGY REPORT Reports generated via electronic interface contain original data; however they are lacking the format of the original report. Caution should be taken when reading/interpreti ng unformatted reports. Name: ? JING ALVARENGA ? Accession #: ? [id number] : ? 1950 (Age: 53) ??F ?Collect [...] ORDERABLES Final Resu lt Performing Organization Address City/State/[facility] Co de Phone Number [facility] [address] [place] [address] documented in this encounter Visit Diagnoses Not on filedocumented in this encounter Care Teams Sanitarian Relationship Specialty Start Date End Date Lolly Oliveira MD [address] [place] [address] PCP - General 11/13/08 documented as of this encounter
--- OUTSIDE RECORDS SUMMARY | 2024-04-07 11:02 | XMS_ITS | Encounter Summary ---
Author Organization [place] [address] Care Team Providers Care Callisthenics Instructor Name Role Phone Lolly Oliveira MD Primary Care Provider [phone] Encounter Details Date Type Department Care Team (Late st Contact Info) Description 05/18/2023 Telephone Dermatology at [address] [address] Nora Meredith LPN Social History [...] [facility] Hospital Encounter Non-Invasive [place] [address] Arrived documented as of this encounter Visit Diagnoses Not on filedocumented in this encounter Care Teams Callisthenics Instructor Relationship Specialty Start Date End Date Lolly Oliveira MD [address] [place] [address] PCP - General 07/17/13 documented as of this encounter
--- OUTSIDE RECORDS SUMMARY | 2024-04-07 11:02 | XMS_ITS | Encounter Summary ---
Author Organization [facility] [place] [address] Care Team Providers Care Student Services Advisor Name Role Phone Lolly Oliveira MD Primary Care Provider [phone] Encounter Details Date Type Department Care Team (Late st Contact Info) Description 03/15/2023 Telephone Cardiology at [address] [address] Saranya Ma Social History Tobacco Use Types Packs/Day Years Used Date Smoking Tobacco: Never Alcohol Use Standard Drinks/Week Comments Not Currently 0 (1 standard drink = 0.6 oz pur e alcohol) [facility] Inpatient Questions Answer Date Recorded [...] her to have an echo done at [facility] prior to her appt withmem there on 05/12/23. Message sent to Dr. Mcmahon asking him to put order in if he would like her to have this done. Saranya Ma Sr. Clinical Procedure [place]/Science Liaison documented in this encounter Plan of Treatment Upcoming Encounters Date Type Department Care Team (Late st Contact Info) Description 04/15/2024 10:00 AM EST Hospital Encounter Non-[place] [address] Arrived documented as of this encounter Visit Diagnoses Not on filedocumented in this encounter Care Teams Student Services Advisor Relationship Specialty Start Date End Date Lolly Oliveira MD [address] [place] [address] PCP - General 07/17/13 documented as of this encounter
--- OUTSIDE RECORDS SUMMARY | 2024-04-07 11:02 | XMS_ITS | Encounter Summary ---
Author Organization [facility] Address [facility] [place] [address] Care Team Providers Care Asphalt Worker Name Role Phone Lolly Oliveira MD Primary Care Provider [phone] Encounter Details Date Type Department Care Team (Late st Contact Info) Description 03/15/2023 Orders Only Cardiology at [address] [address] Lalit Mcmahon MD [facility] [place] [place] [address] Nonischemic cardiomyopathy; Biventricular ICD (implantable cardioverter-defibrill ator) [...] EST Hospital Encounter Non-Invasive [place] [address] Arrived documented as of this encounter Visit Diagnoses Diagnosis Nonischemic cardiomyopathy Other primary cardiomyopathies Biventricular ICD (implantable cardioverter-defibrillator) in place documented in this encounter Care Teams Asphalt Worker Relationship Specialty Start Date End Date Lolly Oliveira MD [address] [place] [address] PCP - General 07/17/13 documented as of this encounter
--- OUTSIDE RECORDS SUMMARY | 2024-04-07 11:02 | XMS_ITS | Encounter Summary ---
Author Organization [place] [address] Care Team Providers Care Media Relations Director Name Role Phone Lolly Oliveira MD Primary Care Provider [phone] Encounter Details Date Type Department Care Team (Latest Contact Info) Description 04/21/2023 10:00 AM EST - 04/21/2023 11:59 PM EST Hospital Encounter [place] [phone] Discharge Disposition: Home Social History Tobacco Use [...] with spacer fluticasone propionate (Flonase) 50 mcg/actuation [place], Suspension 1 spray by Each Nare route [...] AM EST Hospital Encounter Non-[place] [address] Arrived documented as of this [...] filedocumented in this encounter Care Teams Media Relations Director Relationship Specialty Start Date End Date Lolly Oliveira MD [address] [place] [address] PCP - General 07/17/13 documented as of this encounter
--- OUTSIDE RECORDS SUMMARY | 2024-04-07 11:02 | XMS_ITS | Clinical Summary ---
Author Organization [facility] [address] Care Team Providers Care Acquisition Lead Name Role Phone Lolly Oliveira MD Primary Care Provider [phone] Allergies Active Allergy Reactions Criticality Noted Date [...] spacer Active fluticasone propionate (Flonase) 50 mcg/actuation [place], Suspension 1 spray by Each Nare route [...] EST Hospital Encounter Non-[place] [address] Discharge Disposition: Home from Last [...] EST Hospital Encounter Non-[place] [address] Arrived Health Maintenance Due Date Last Done [...] series) 11/07/2023 Medical Devices Implanted Type Area Finance Manager Device Identifier Shelf Expiration Date Model / Serial / Lot Bsx: [id number]: 591853-8/18/2 023 Implanted: by Lalit Mcmahon MD (Quantity not on file) Defibrillator Chest Wall [employer] [id number] / [id number] / Bsx: [id number]: [id number]/18/2 023 Implanted: by Lalit Mcmahon MD (Quantity not on file) Lead Heart [employer] 4674 / [id number] / Bsx: [id number]: [id number] Implanted: by Lalit Mcmahon MD (Quantity not on file) Lead Heart [employer] 7841 / [id number] / Bsx: 0672: [id number]/18/2 023 Implanted: by Lalit Mcmahon MD (Quantity not on file) Lead Heart [employer] 0672 / [id number] / Procedures Procedure Name Priority Date/Time Associated [...] Status decision made by: Patient Care Teams Acquisition Lead Relationship Specialty Start Date End Date Lolly Oliveira MD [address] [place] [id number] PCP - General 07/17/13
--- OUTSIDE RECORDS SUMMARY | 2024-04-07 11:02 | XMS_ITS | Encounter Summary ---
Author Organization [facility] Address [address] [place] [address] Care Team Providers Care Solids Control Technician Name Role Phone Unavailable Primary Care Provider Unavailabl e Encounter Details Date Type Department Care Team (Late st Contact Info) Description 11/07/2008 Orders Only [facility] Laboratory Services - [facility] [place] [address] [place] [address] Kenneth Parker MD [address] [place] [id number] Social History Tobacco Use Types Packs/Day Years [...] ? JING ALVARENGA ? Accession #: ? [id number] ? : ? 1950 (Age: 58) ??F [...] ORDERABLES Final Resu lt [facility] [address] [place] [address] documented in this encounter Visit Diagnoses Not on filedocumented in this encounter
--- OUTSIDE RECORDS SUMMARY | 2024-04-07 11:02 | XMS_ITS | Encounter Summary ---
Author Organization [facility] [place] [address] Care Team Providers Care Radiology Physician Name Role Phone Lolly Oliveira MD Primary Care Provider [phone] Encounter Details Date Type Department Care Team (Late st Contact Info) Description 05/18/2023 Refill Dermatology at [address] [address] Nora Meredith LPN Social History [...] sent to [facility] drug. documented in this encounter Plan of Treatment Upcoming Encounters Date Type Department Care Team (Late st Contact Info) Description 04/15/2024 10:00 AM EST Hospital Encounter Non-Invasive [place] [address] Arrived documented as of this encounter Visit Diagnoses Not on filedocumented in this encounter Care Teams Radiology Physician Relationship Specialty Start Date End Date Lolly Oliveira MD [address] [place] [address] PCP - General 07/17/13 documented as of this encounter
--- OUTSIDE RECORDS SUMMARY | 2024-04-07 11:02 | XMS_ITS | Referral Summary ---
Author Organization [facility] Address [address] [place] [address] Care Team Providers Care Restaurant Associate Name Role Phone Lolly Oliveira MD Primary Care Provider [phone] Social History Tobacco Use Types Packs/Day Years Used Date Smoking Tobacco: Never Assessed Comments Unknown Sex and Gender Information Value Date Recorded Sex Assigned at Not on file Legal Sex Female 18:31 EST Gender Identity Not on file Sexual Orientation Not on file Plan of Treatment Not on file Insurance [facility] MEDICARE Care Teams Restaurant Associate Relationship Specialty Start Date End Date Lolly Oliveira MD [address] [place] [address] PCP - General 11/13/08
--- OUTSIDE RECORDS SUMMARY | 2024-04-07 11:02 | XMS_ITS | Encounter Summary ---
Author Organization [facility] Address [address] [place] [address] Care Team Providers Care Yarn Conditioner Name Role Phone Lolly Oliveira MD Primary Care Provider [phone] Encounter Details Date Type Department Care Team (Late st Contact Info) Description 02/11/2021 Lab Requisition [facility] Laboratory Medicine - [address] [phone] Outr Resulting Lab, Provider Social History Tobacco [...] GENER AL ORDERABLES Final Result [facility] [address] [place] [address] * COVID-19 TESTING (02/11/2021 8:00 EST) COVID-19 rt-PCR Result Negative Negative 02/12/2021 14:17 EST [facility] Comment: This test [...] performed using the med SARS-CoV-2 assay ([employer] on the Med 6800 System Performing Lab Med [address] [facility] Lab 02/12/2021 14:17 EST [facility] Swab 02/11/2021 8:00 EST 02/11/2021 22:22 EST us Provider Outr Resulting Lab MICROBIOLOGY - GENER AL ORDERABLES Final Result [facility] [address] [place] [address] documented in this encounter Visit Diagnoses Not on filedocumented in this encounter Care Teams Yarn Conditioner Relationship Specialty Start Date End Date Lolly Oliveira MD [address] [place] [address] PCP - General 11/13/08 documented as of this encounter
--- OUTSIDE RECORDS SUMMARY | 2024-04-07 11:02 | XMS_ITS | Encounter Summary ---
Author Organization [facility] [place] [address] Care Team Providers Care Outdoor Advertising Leasing Agent Name Role Phone Lolly Oliveira MD Primary Care Provider [phone] Encounter Details Date Type Department Care Team (Latest Contact Info) Description 01/21/2023 10:00 AM EST - 01/21/2023 11:59 PM EST Hospital Encounter Non-[place] [phone] Discharge Disposition: Home Social History Tobacco Use [...] with spacer fluticasone propionate (Flonase) 50 mcg/actuation [place], Suspension 1 spray by Each Nare route [...] AM EST Hospital Encounter Non-[place] [address] Arrived documented as of this [...] on filedocumented in this encounter Care Teams Outdoor Advertising Leasing Agent Relationship Specialty Start Date End Date Lolly Oliveira MD [address] [place] [address] PCP - General 07/17/13 documented as of this encounter
--- OUTSIDE RECORDS SUMMARY | 2024-04-07 11:02 | XMS_ITS | Encounter Summary ---
Author Organization [facility] Address [address] [place] [address] Care Team Providers Care Copy Preparer Name Role Phone Lolly Oliveira MD Primary Care Provider [phone] Encounter Details Date Type Department Care Team (Late st Contact Info) Description 04/17/2005 Results Only [facility] conversion [address] [place] [address] Lolly Oliveira MD [address] [place], [place] [phone] Social History Tobacco Use Types Packs/Day Years [...] ? JING ALVARENGA ? Accession #: ? [id number] : ? 1950 (Age: 54) ??F ?Collect Date: ? 04/17/2005 Location: ? [facility] ? Receive Date: ? 04/21/2005 Provider: ?LOLLY OLIVEIRA MD Copy to: ? Specimen/Source: ?ThinPrep Pap Test, Cervix/Endocervix, processed on [employer] ThinPrep Imaging System, with manual evaluation Last [...] Final Resu lt [facility] [address] [place] [address] documented in this encounter Visit Diagnoses Not on filedocumented in this encounter Care Teams Copy Preparer Relationship Specialty Start Date End Date Lolly Oliveira MD [address] [place] [address] PCP - General 11/13/08 documented as of this encounter
--- OUTSIDE RECORDS SUMMARY | 2024-04-07 11:02 | XMS_ITS | Encounter Summary ---
Author Organization [facility] [place] [address] Care Team Providers Care Bakery Sales Clerk Name Role Phone Lolly Oliveira MD Primary Care Provider [phone] Encounter Details Date Type Department Care Team (Latest Contact Info) Description 07/20/2023 10:00 AM EDT - 07/20/2023 11:59 PM EDT Hospital Encounter [place] [address] Discharge Disposition: Home Social History Tobacco Use [...] with spacer fluticasone propionate (Flonase) 50 mcg/actuation [place], Suspension 1 spray by Each Nare route daily as needed. documented as of this encounter Plan of Treatment Upcoming Encounters Date Type Department Care Team (Late st Contact Info) Description 04/15/2024 10:00 AM EST Hospital Encounter [place] [address] Arrived documented as of this encounter Procedures [...] on filedocumented in this encounter Care Teams Bakery Sales Clerk Relationship Specialty Start Date End Date Lolly Oliveira MD [address] [place] [address] PCP - General 07/17/13 documented as of this encounter
--- OUTSIDE RECORDS SUMMARY | 2024-04-07 11:02 | XMS_ITS | Encounter Summary ---
Author Organization [facility] [place] [address] Care Team Providers Care Bronze Chaser Name Role Phone Lolly Oliveira MD Primary Care Provider [phone] Encounter Details Date Type Department Care Team (Latest Contact Info) Description 10/18/2023 10:00 AM EDT - 10/18/2023 11:59 PM EDT Hospital Encounter Non-Invasive [place] [address] Discharge Disposition: Home Social History Tobacco Use [...] with spacer fluticasone propionate (Flonase) 50 mcg/actuation [place], Suspension 1 spray by Each Nare route daily as needed. documented as of this encounter Plan of Treatment Upcoming Encounters Date Type Department Care Team (Late st Contact Info) Description 04/15/2024 10:00 AM EST Hospital Encounter Non-Invasive [place] [address] Arrived documented as of this encounter Procedures [...] on filedocumented in this encounter Care Teams Bronze Chaser Relationship Specialty Start Date End Date Lolly Oliveira MD [address] [place] [address] PCP - General 07/17/13 documented as of this encounter
--- OUTSIDE RECORDS SUMMARY | 2024-04-07 11:02 | XMS_ITS | Encounter Summary ---
Author Organization [facility] [place] [address] Care Team Providers Care Extrusion Die Template Maker Name Role Phone Lolly Oliveira MD Primary Care Provider [phone] Encounter Details Date Type Department Care Team (Latest Contact Info) Description 01/16/2024 10:00 AM EST - 01/16/2024 11:59 PM EST Hospital Encounter Non-[place] [address] Discharge Disposition: Home Social History Tobacco Use Types Packs/Day Years Used Date Smoking Tobacco: Never Alcohol Use Standard Drinks/Week Comments Not Currently 0 (1 standard drink = 0.6 oz pur e alcohol) [facility] Inpatient Questions Answer Date Recorded [...] with spacer fluticasone propionate (Flonase) 50 mcg/actuation [place], Suspension 1 spray by Each Nare route daily as needed. documented as of this encounter Plan of Treatment Upcoming Encounters Date Type Department Care Team (Late st Contact Info) Description 04/15/2024 10:00 AM EST Hospital Encounter Non-[place] [address] Arrived documented as of this encounter Procedures [...] on filedocumented in this encounter Care Teams Extrusion Die Template Maker Relationship Specialty Start Date End Date Lolly Oliveira MD [address] [place] [address] PCP - General 07/17/13 documented as of this encounter
--- OUTSIDE RECORDS SUMMARY | 2024-04-07 11:02 | XMS_ITS | Data Portability ---
Author Organization [place] - [facility] Address [address] [place] [address] Care Team Providers Care [employer] Sales Name Role Phone [facility] OFFICE [employer] t ZAMZAM BOSS Game Designer/Creative Director JAYCOB MARTINEZ Orthopedic Surgeon [phone] ROXANA KELLEY Steel Rigger FLOWER RAMSEY Dentist [phone] Assessment Encounter Date Assessment Date Assessment LastModified [...] copy of PPP at conclusion of visit. [email or web address] Not available 04/20/2023 07:44:20 Plan of Treatment Reminders Order Date Submit Date Provider Last Modified By Organization Details Last Modified Time Details Appointments Medicare Annual Wellness 40 2024 07:30A M LOLLY CORTEZ Not available Not available Not available Lab None recorded. Referral podiatris t referral 2023 024 [facility], [address] [place] [address] Dr, [place], [address], 09/24/2023 13:45:43 physical therapist referral 2023 024 Chinedu Amato PT, [address] , [place], [address], 10/18/2023 12:01:58 Procedures None recorded. Surgeries None recorded. Imaging MAMMO, screening , bilateral 2023 024 [facility] (Radiology), [address] [place] [address] , [place], [address], 11/26/2023 15:15:54 Medication Orders Jardiance 10 mg tablet 2023 024 [facility], [address] [place] [address], [address], 05/24/2023 18:32:26 lisinopri l 20 mg tablet 2023 024 [facility], [address] [place] [address], [address], 05/24/2023 18:32:26 meclizine 25 mg tablet 2023 024 [facility], [address] [place] [address], [address], 09/01/2023 13:22:14 Patient TargetsNo targets recorded. Patient Instructions Encounter Date Encounter Id Patient Instructions Last Modified By Organization Details Last Modified Time 05/21/2023 [id number] Discussed and explained advance directives such as standard forms to the {{patient caregiv er patient and caregiver}}. Face to face discussion lasted for a duration of ___ minutes. [email or web address] Not available 04/20/2023 07:44:20 09/01/2023 [id number] 1. The earwax from your ears were [...] Not available 09/01/2023 13:23:33 Reason for Referral Interrelated Special Education Teacher Referral for Onyc homycosis onychomycosis, calluses Referring Physician: Lolly Cortez, Family Medicine, Encounter Date: 05/21/2023 Physical Therapist Referral for Vertigo Referring Physician: Jessica Wallis, [facility], Encounter Date: 09/01/2023 Results Created Date [...] nt 1):S1 3-s28 . Not Available [address] [place], [address] 11/18/2023 09:59:24 11/18/19 24 11/18/2023 COMPR EHENS NEEL METAB OLIC PANEL calcium 9.0 mg/dL 8.5-10 .1 normal Not Available [address] [place], [address] 11/18/2023 10:01:26 11/18/19 24 11/18/2023 COMPR EHENS NEEL METAB OLIC PANEL glucose 105 mg/dL 74-106 normal Not Available [facility] [address] [place], [address] 11/18/2023 10:01:11/18/19 24 11/18/2023 COMPR EHENS NEEL METAB OLIC PANEL BUN 27 mg/dL 7-18 high Not Available [facility] [address] [place], [address] 11/18/2023 10:01:11/18/19 24 11/18/2023 COMPR EHENS NEEL METAB OLIC PANEL creatinine 1.3 mg/dL 0.55-1 .02 high Not Available [address] [place], [address] 11/18/2023 10:01:11/18/1911/18/2023 COMPR EHENS NEEL METAB OLIC [...] er-ag ed adult s. Not Available [address] [place], [address] 11/18/2023 10:01:11/18/19 24 11/18/2023 COMPR EHENS NEEL METAB OLIC PANEL total protein 7.5 g/dL 6.4-8. 2 normal Not Available [address] [place], [address] 11/18/2023 10:01:11/18/19 24 11/18/2023 COMPR EHENS NEEL METAB OLIC PANEL albumin 3.6 g/dL 3.4-5. 0 normal Not Available [address] [place], [address] 11/18/2023 10:01:11/18/19 24 11/18/2023 COMPR EHENS NEEL METAB OLIC PANEL bilirubin, total 0.59 mg/dL 0.2-1. 0 normal Not Available [address] [place], [address] 11/18/2023 10:01:11/18/19 24 11/18/2023 COMPR EHENS NEEL METAB OLIC PANEL alk phos 135 U/L 46-116 high Not Available [address] [place], [address] 11/18/2023 10:01:11/18/19 24 11/18/2023 COMPR EHENS NEEL METAB OLIC PANEL sodium 139 mmol/ L 136-14 5 normal Not Available [address] [place], [address] 11/18/2023 10:01:11/18/19 24 11/18/2023 COMPR EHENS NEEL METAB OLIC PANEL potassium 4.2 mmol/ L 3.5-5. 1 normal Not Available [address] [place], [address] 11/18/2023 10:01:26 11/18/19 24 11/18/2023 COMPR EHENS NEEL METAB OLIC PANEL chloride 103 mmol/ L 98-107 normal Not Available [address] [place], [address] 11/18/2023 10:01:11/18/19 24 11/18/2023 COMPR EHENS NEEL METAB OLIC PANEL CO2 29.0 mmol/ L 21.0-3 2.0 normal Not Available [address] [place], [address] 11/18/2023 10:01:26 11/18/19 24 11/18/2023 COMPR EHENS NEEL METAB OLIC PANEL anion gap 7.0 mmol/ L 3-11 normal Not Available [address] [place], [address] 11/18/2023 10:01:26 11/18/19 24 11/18/2023 COMPR EHENS NEEL METAB OLIC PANEL AST 29 U/L 15-37 normal Not Available [facility] [address] [place], [address] 11/18/2023 10:01:26 11/18/19 24 11/18/2023 COMPR EHENS NEEL METAB OLIC PANEL ALT 24 U/L 14-59 normal Not Available [facility] [address] [place], [address] 11/18/2023 10:01:26 11/18/19 24 11/18/2023 LIPID 2 cholesterol 157 mg/dL <200 Not Available [facility] [address] [place], [address] 11/18/2023 10:01:27 11/18/19 24 11/18/2023 LIPID 2 triglyceride 79 mg/dL <150 Not Available [address] [place], [address] 11/18/2023 10:01:27 11/18/19 24 11/18/2023 LIPID 2 HDL cholesterol 78 mg/dL 40-60 Not Available [facility] [address] [place], [address] 11/18/2023 10:01:27 11/18/19 24 11/18/2023 LIPID 2 [...] years or older . Not Available [address] [place], [address] 11/18/2023 10:01:27 05/03/19 24 05/03/2023 ultra sound imagi ng sanjay t Kaiser t Name: Naomi Mott Unit #: [id number] Loc: DI Andrewi ng Provid er: Lalit Mcmahon M.D. 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 Thank- you. [facility] [address], [place], [address] 05/03/2023 18:12:07 05/13/19 24 05/13/2023 elect eric robertson am EKG PATIAUSTIN T NAME: Naomi Mott yolanda E UNIT #: [id number] ORDERI [facility] ER: Lalit Mcmahon M.D. ACCOUN T #: [id number] PRIMAR Y CARE PROVID ER: [...] E-Sign Time: 08 abraley [facility] [address] [place], [address] 09/13/2023 15:45:54 06/28/19 24 01/12/2023 x-ray imagi ng repor t Gelyaustin t Name: Naomi Mott Unit #: [id number] Loc: ALIZA Orderi ng Provid er: Karan Freire M.D. Accoun t #: [id number] Status : [facility] Primsd y [facility] er: Janice Pérez M.D. Date of [...] above. Thank- you. rod [facility] [address], [place], [address] 06/29/2023 07:24:17 11/22/19 24 04/16/2022 bone densi [...] Patien t Name: Naomi Mott Unit #: [id number] Loc: DI Orderi ng Provid er: Janice Pérez M.D. Accoun t #: [id number] Status : REG CLI Primar y Care [...] error, please notify us immedi ately at [phone] and return the origin al report to us at the addres s above. Thank- you. [facility] [address], [place], [address] 12/09/2023 05:58:02 01/17/2001/17/2024 x-ray imagi ng sanjay t [facility] t Name: Naomi Mott Unit #: [id number] Loc: DIORS Orderi ng Provid er: Karan Freire M.D. Accoun t #: [id number] Status : PRE CLI Primar y [...] the addres s above. Thank- you. INTERFACE [facility] [address] [place] [address] Dr, [place], [address] 01/17/2024 11:56:16 Result Notes None recorded. Problems Name Problem SNOMED Code Status Onset Date Resolution Date Notes Provider Name and Address Organization Details Recorded Time Asthma 237634390 Active 200204/14/19 22 - Comments only - Lolly Cortez MD - Not too much of an issue recently . She does keep albutero l inhaler availabl e if needed. Problem Code: 493.90; Problem Code Type: ICD-9; Not Available [facility] 3 04:01:51 Atypical glandula r cells on cervical Papanico laou smear 229875523 Active 2007 Problem Code: 795.00; Problem Code Type: ICD-9; Not Available [facility] 3 04:01:51 Dizzines s and giddines s 924441521 Active 201404/14/19 22 - Comments only - Lolly Crotez MD - , Intermit tent. She has learned to deal with it using the Jd's maneuver . She will call if any signific ant worsenin g. Problem Code: R42; Problem Code Type: ICD-10; Not Available [facility] 3 04:01:52 Essalma delia l hyperten pura 20114717 Active 201401/12/20 22 - Comments only - Lolly Cortez MD - Blood pressure well controll ed with the lisinopr il and Toprol. Problem Code: I10; Problem Code Type: ICD-10; Not Available [facility] 3 04:01:52 Adult health examinat ion Active 201504/16/19 23 - Comments only - Lolly Cortez MD - UTD with mammo, has a DEXA schedule d ( dx of osteopor osis), will check an A1c. Problem Code: Z00.00; Problem Code Type: ICD-10; Not Available [facility] 3 04:01:52 Disorder of skin and/or subcutan eous tissue 93146303 Active 201509/17/19 16 - Comments only - Lolly Cortez MD - the lesions on the buttucks appear to have been possible boils that are now healing vs atopic rxn resolvin g. At this point no tx needed. If worsenin g/recurr ing she will call. I don't believe these are related to rubbing while walking Problem Code: L98.9; Problem Code Type: ICD-10; Not Available [facility] 3 04:01:52 Pain in right hip joint 15261480278 9102 Completed 201512/02/2022 Problem Code: M25.551; Problem Code Type: ICD-10; Not Available [facility] 3 04:01:52 Onychomy cosis due to dermatop hyte 458946985 Active 201609/23/19 17 - Comments only - Lolly Cortez MD - she is going to contact podiatry to find out if they have any other topical txs that might work. She is not interest ed in systemic tx Problem Code: B35.1; Problem Code Type: ICD-10; Not Available [facility] 3 04:01:52 Hearing loss of right ear 390055003 Completed 201712/10/2017 11/27/19 18 - Comments only - Naseem Gil PA-C - Cerumino sis treated in-offic e today. If hearing fails to be fully restored over the course of the weekend, will consider for ENT refer for formal audiolog y assessme nt. Problem Code: H91.91; Problem Code Type: ICD-10; Not Available [facility] 3 04:01:52 Abnormal weight gain 467185561 Active 2018 Problem Code: R63.5; Problem Code Type: ICD-10; Not Available [facility] 3 04:01:53 Disorder of hip joint 926867898 Active 201801/12/20 22 - Comments only - Lolly Cortez MD - ,rt. For which she would like a total hip replacem ent. 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 She is trying to continue being as mobile as she can comforta silva. Problem Code: M12.859; Problem Code Type: ICD-10; Not Available [facility] 3 04:01:53 Acute vaginiti s 58203515 Completed 201801/04/2019 12/22/19 19 - Comments only - Naseem Gil PA-C - Will await resutls of today's collecte d VPS to determin e indicati on for further treatmen t. Problem Code: N76.0; Problem Code Type: ICD-10; Not Available [facility] 3 04:01:53 Intertri go 71591618 Completed 201801/04/2019 12/22/19 19 - Comments only - Naseem Gil PA-C - Patient encourag ed to keep skin folds as clean and dry as possible to avoid reactiva tion (suggest ed inspector hairspring truing after bathing) . Addition ally, could consider to use OTC DESITIN for acute skin healing. Problem Code: L30.4; Problem Code Type: ICD-10; Not Available [facility] 3 04:01:53 Pre-surg cecilia evaluati on Completed 201801/23/2019 01/10/20 19 - Comments only - Naseem Gil PA-C - Today's EKG shows stable LBBB (compare d to study 10/19/14) with NSR at 69bpm. Patient to f/u for pre-oper ative laborato ry testing and anesthes ia consult as schedule d 01/17/19 . Problem Code: Z01.818; Problem Code Type: ICD-10; Not Available [facility] 3 04:01:53 Hip joint prosthes is present 663839122 Active 2018 Problem Code: Z96.642; Problem Code Type: ICD-10; Not Available [facility] 3 04:01:53 Dyspnea 814719518 Completed 201903/27/2019 03/13/19 20 - Comments only [...] R06.02; Problem Code Type: ICD-10; Not Available [facility] 3 04:01:54 Edema 477362975 Completed 201906/21/2019 06/07/19 20 - Comments only - Naseem Gil PA-C - Patient reassure d nothing concerni ng on today's PX to raise suspicio n for DVT. Suspect minor calf muscle strain. OK to continue to use compress ion stocking s for symtpoma tic relief and consider calf stretche s. F/U PRN. Problem Code: R60.9; Problem Code Type: ICD-10; Not Available [facility] 3 04:01:54 Headache 67785559 Active 2020 Problem Code: R51.9; Problem Code Type: ICD-10; Not Available [facility] 3 04:01:54 Guttate psoriasi s 77276360 Active 202004/16/19 23 - Comments only - Lolly Cotrez MD - being followed by karolyn mercadogodfrey awad under reasonab le control with the UV tx and prn clobetas ol cream Problem Code: L40.4; Problem Code Type: ICD-10; Not Available [facility] 3 04:01:54 Stool finding 933528492 Active 2021 Problem Code: R19.5; Problem Code Type: ICD-10; Not Available [facility] 3 04:01:54 Speciali zed medical examinat ion Active 2021 Problem Code: Z01.89; Problem Code Type: ICD-10; Not Available [facility] 3 04:01:54 Edema 245509556 Active 2021 Problem Code: R60.9; Problem Code Type: ICD-10; Not Available [facility] 3 04:01:55 Screenin g mammogra phy Active 2021 Problem Code: Z12.31; Problem Code Type: ICD-10; Not Available [facility] 3 04:01:55 Abnormal finding on evaluati on procedur e 160498467 Active 2021 Problem Code: R89.9; Problem Code Type: ICD-10; Not Available [facility] 3 04:01:55 Dyspnea 455564770 Active 2021 Problem Code: R06.02; Problem Code Type: ICD-10; Not Available [facility] 3 04:01:55 Cardiomy opathy 75336388 Active 202109/05/19 23 - Comments only - Lolly Cortez MD - Clinical ly remaingodfrey awad stable on the lisinopr il, furosemi de 20 mg daily, Jardianc e, Toprol, rosuvast atin, aspirin. ICD/pace maker in place. Followin ritesh with cardiolo gy. She is walking/ exercisi ng regularl y. Problem Code: I42.9; Problem Code Type: ICD-10; Not Available [facility] 3 04:01:55 Heart failure 40760616 Active 2021 Problem Code: I50.9; Problem Code Type: ICD-10; Not Available [facility] 3 04:01:56 Family history of breast cancer 129055020 Active 2021 Problem Code: Z80.3; Problem Code Type: ICD-10; Not Available [facility] 3 04:01:56 Burn 735946007 Active 202101/12/20 22 - Comments only - Lolly Cortez MD - Healing slowly, no evidence of infectio n. If she has any further question s regardin g this she will let us know. Problem Code: T30.0; Problem Code Type: ICD-10; Not Available [facility] 3 04:01:56 Senile osteopor osis 23737656 Active 202101/12/20 22 - Comments only - Lolly Cortez MD - Due for a repeat DEXA scan. Ordered. She does take an over-the -counter vitamin D suppleme nt I believe. Problem Code: M81.0; Problem Code Type: ICD-10; Not Available [facility] 3 04:01:56 Hyperlip idemia 05878021 Active 202204/16/19 23 - Comments only - Lolly Cortez MD - will check LFTs, CPK, on rosuvast atin 5mg daily which has brought her lipids into goal range. Problem Code: E78.5; Problem Code Type: ICD-10; Not Available [facility] 3 04:01:56 Adjustme nt disorder 39794443 Active 2022 Problem Code: F43.20; Problem Code Type: ICD-10; Not Available [facility] 3 04:01:56 Dysuria 01250329 Active 2022 Problem Code: R30.9; Problem Code Type: ICD-10; Not Available [facility] 3 04:01:57 Itching of skin 912074881 Active 2022 Problem Code: L29.8; Problem Code Type: ICD-10; Not Available [facility] 3 04:01:57 Automati c implanta ble cardiac defibril lator in situ 904879556 Active 2022 Problem Code: Z95.810; Problem Code Type: ICD-10; Not Available [facility] 3 04:01:57 Glycosur ia 63503434 Active 202209/05/19 23 - Comments only - Lolly Cortez MD - , No prior diagnosi s of diabetes . She is developi ng diabetes that could be number perineal symptoms . 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 748373151 Active 202209/05/19 23 - Comments only - [...] N90.89; Problem Code Type: ICD-10; Not Available [facility] 3 04:01:57 Allergic contact dermatit is 641081660 Completed 202012/02/2022 Problem Code: L23.9; Problem Code Type: ICD-10; Not Available [facility] 3 04:02:02 Essentia l hyperten pura 80565200 Completed 200107/25/2015 Problem Code: 401.9; Problem Code Type: ICD-9; Not Available [facility] 3 04:02:03 Polyp of colon 03662057 Completed 201006/05/2021 Problem Code: K63.5; Problem Code Type: ICD-10; Not Available [facility] 3 04:02:03 History of vertigo 658581138 Completed 201012/02/2022 01/11/20 15 - Improved - Lolly Cortez MD - she will continue with Jd's manoever PRN and call if worsenin g/nothin g helping Not Available [facility] 3 04:02:04 Acute sinusiti s 55557170 Completed 201912/16/2020 Problem Code: J01.90; Problem Code Type: ICD-10; Not Available [facility] 3 04:02:05 Pain of right lower leg 17898312247 9108 Completed 202101/11/2022 Problem Code: M79.661; Problem Code Type: ICD-10; Not Available [facility] 3 04:02:06 Hyperlip idemia 71746295 Completed 200910/19/2017 Not Available [facility] 3 04:02:07 Dizzines s and giddines s 329962501 Completed 201408/14/2019 Problem Code: R42; Problem Code Type: ICD-10; Not Available [facility] 3 04:02:07 Hyperten sive disorder 57158442 Completed 201011/03/2018 Not Available [facility] 3 04:02:09 Diarrhea 67008032 Completed 201610/19/2017 Problem Code: R19.7; Problem Code Type: ICD-10; Not Available [facility] 3 04:02:10 Anemia 258430803 Completed 201901/11/2022 Problem Code: D64.9; Problem Code Type: ICD-10; Not Available [facility] 3 04:02:10 Mcdowell - lesion 621462978 Active 2022 Problem Code: L84; Problem Code Type: ICD-10; Not Available [facility] 4 05:37:51 Foot callus 681085987 Active [address], [place], [address] , [facility]. 4 11:29:32 Onychomy cosis 430543337 Active [address], [place], [address] , [facility] 4 11:29:44 Vertigo 394055222 Active [address], [facility] [phone] [place] [address] 4 13:20:57 Impacted cerumen of bilatera l ears 89919434010 09056 Active [address], [facility] [address] [place] [address] 4 13:21:03 Prediabe tish 999216026 Active [address], [facility] [address] [place] [address] 4 09:24:37 Notes:*Problem Name: [place] copy 2006 - Hyperplastic Polyp *ICD-10 Codes: *Problem Status: inactive *Comments: *Note Date: 04/29/2010 *Problem Name: Rt Breast Bx 2013 - Adenosis *ICD-10 Codes: *Problem Status: active *Comments: *Note Date: 08/01/2013 Problem Notes None recorded. Procedures Surgical History Date Name Laterality Status Provider Name and Address Organization Details Recorded Time 4 Cerumen Removal completed NATHAN HERNANDEZ Dr, [facility] [id number] [place] [address] 09/01/2023 13:52:38 3 total replacement of right hip joint completed Cornelia Lizarraga RN [facility] 03/31/2023 17:11:24 Imaging Results Imaging Date Name Status LastModified by Organization Details LastModified Time 05/03/2023 ultrasound imaging report completed rod [address] [place], [address] 05/03/2023 18:12:07 05/13/2023 electrocardiogram completed [email or web address] [place], [address] 09/13/2023 15:45:54 01/12/2023 [email or web address] [address] [place], [address] 06/29/2023 07:24:17 04/16/2022 bone density completed Information [...] 11/22/2023 06:42:56 12/08/2023 mammography imaging report completed [address] [place], [address] 12/09/2023 05:58:02 01/17/2024 x-ray imaging report completed [address] [place], [address] 01/17/2024 11:56:16 Procedure Notes None recorded. Medical Equipment None Reported. Allergies Allergen ID Allergen Name Allergen Category Reaction Reaction Severity Criticality Documentation Date Start Date Code Code System Note Provider Name and Address Organization Details Recorded Time 72303 sulfadiaz ine medicatio n tachycard ia mild Not available 01/15/20232001 41390 RxNorm Tachy cardi a Not Available [facility] 16:22:29 Medications Name Sig Start Date Stop [...] Not Available Vitals Date Recorded Body height Provider Name an d Address Organization Details Last Updated DateTime 05/21/2023 159.385 cm Davey Allen MA [facility] 05/21/2023 10:24:56 Date Recorded Oxygen saturation Oxygen saturation in Arterial blood by Pulse oximetry Provider Name and Address Organization Details Last Updated DateTime 05/21/2023 96 % 96 % Davey Allen MA [facility] 05/21/2023 10:27:16 Date Recorded Heart rate Provider Name an d Address Organization Details Last Updated DateTime 05/21/2023 65 /min Davey Allen MA [facility] 05/21/2023 10:27:23 Date Recorded Body mass index (BMI) Body weight Provider Name and Address Organization Details Last Updated DateTime 05/21/2023 38.7 kg/m2 25798.83 g Davey Allen MA [facility] 05/21/2023 10:28:50 Date Recorded Body height Provider Name an d Address Organization Details Last Updated DateTime 09/01/2023 159.385 cm Vonda Fields RN [facility] 09/01/2023 12:23:03 Date Recorded Body mass index (BMI) Body weight Provider Name and Address Organization Details Last Updated DateTime 09/01/2023 38.7 kg/m2 76819.82 g Vonda Fields RN [facility] 09/01/2023 12:23:08 Date Recorded Body temperature Provider Name a nd Address Organization Details Last Updated DateTime 09/01/2023 97.1 [degF] Vonda Fields RN [facility] 09/01/2023 12:23:40 Date Recorded Respiratory rate Provider Name a nd Address Organization Details Last Updated DateTime 09/01/2023 17 /min Vonda Fields RN [facility] 09/01/2023 12:23:55 Date Recorded Oxygen saturation Oxygen saturation in Arterial blood by Pulse oximetry Provider Name and Address Organization Details Last Updated DateTime 09/01/2023 95 % 95 % Vonda Fields [facility] [facility] 09/01/2023 12:24:04 Date Recorded Heart rate Provider Name an d Address Organization Details Last Updated DateTime 09/01/2023 60 /min Vonda Fields RN [facility], [facility] 09/01/2023 12:24:00 Date Recorded Body height Provider Name an d Address Organization Details Last Updated DateTime 11/26/2023 159.385 cm Davey Allen MA [facility], [facility] 11/26/2023 07:31:20 Date Recorded Body mass index (BMI) Body weight Provider Name and Address Organization Details Last Updated DateTime 11/26/2023 40.4 kg/m2 828421.88 g Davey Allen MA [facility] 11/26/2023 07:31:33 Date Recorded Oxygen saturation Oxygen saturation in Arterial blood by Pulse oximetry Provider Name and Address Organization Details Last Updated DateTime 11/26/2023 99 % 99 % Davey Allen MA [facility], [facility] 11/26/2023 07:35:29 Date Recorded Heart rate Provider Name an d Address Organization Details Last Updated DateTime 11/26/2023 63 /min Davey Allne MA [facility], [facility]. 11/26/2023 07:35:41 Date Recorded Respiratory rate Provider Name a nd Address Organization Details Last Updated DateTime 11/26/2023 18 /min Davey Allen MA [facility] 11/26/2023 07:36:56 Date Recorded Systolic blood pressure Diastolic blood pressure Provider Name and Address Organization Details Last Updated DateTime 05/21/2023 128 mm[Hg] 72 mm[Hg] Davey Allen MA [facility] 05/21/2023 10:27:29 Date Recorded Systolic blood pressure Diastolic blood pressure Provider Name and Address Organization Details Last Updated DateTime 09/01/2023 139 mm[Hg] 69 mm[Hg] Vonda Fields RN [facility] 09/01/2023 12:25:13 Date Recorded Systolic blood pressure Diastolic blood pressure Provider Name and Address Organization Details Last Updated DateTime 11/26/2023 136 mm[Hg] 68 mm[Hg] Davey Allen MA [facility] 11/26/2023 07:36:54 Social History Question Answer Notes LastModified by Organizat ion Details LastModified Time Tobacco Smoking Status Never Smoker Davey Allen MA null, [facility] 05/21/2023 10:57:21 Would You Say That, In General, Your Health Is Very Good [email or web address] Information not available 05/21/2023 How Often Does Anyone, Including Family, Physically Hurt You? Never [email or web address] Information not available 05/21/2023 How Often Does Anyone, Including Family, Insult Or Talk Down To You? Never Information no t available 05/21/2023 How Often Does Anyone, Including Family, Threaten You With Harm? Never [email or web address] Information not available 05/21/2023 How Often Does Anyone, Including Family, Scream Or Curse At You? Never [email or web address] Information not available 05/21/2023 Within The Past 12 Months, You Worried That Your Food Would Run Out Before You Got Money To Buy More. Never True [email or web address] Information n ot available 05/21/2023 Within The Past 12 Months, The Food You Bought Just Didn't Last And You Didn't Have Money To Get More. Never True [email or web address] Information n ot available 05/21/2023 How Hard Is It For You To Pay For The Very Basics Like Food, Housing, Medical Care, And Heating? Would You Say It Is: Not Hard At All [email or web address] Information not available 05/21/2023 In The Past 12 Months, Has Lack Of Reliable Transportation Kept You From Medical Appointments, Meetings, Work Or From Getting Things Needed For Daily Living? No [email or web address] Information not available 05/21/2023 What Is Your Housing Situation Today? I Have Housing. [email or web address] Information not available 05/21/2023 How Often In [...] Different Reasons Than Its Intended Purpose? Never [email or web address] Information no t available 05/21/2023 How Often In The Past Year Have You Used Other Drugs (for Example, Heroin, Cocaine, Meth, Salvia, Inhalants)? Never Information not available 05/21/2023 Have You Ever Used IV Drugs? No [email or web address] Information not available 05/21/2023 What Matters Most To You? Staying Healthy, Keeping Active. Getting Exercise And Losing Some Weight [email or web address] Information not available 05/21/2023 During The Past Four Weeks Has Your Physical And Emotional Health Limited Your Social Activities With Family And Friends, Neighbors, Or Groups? Not At All [email or web address] Information not available 05/21/2023 During The Past Four Weeks, Was Someone Available To Help You If You Needed And Wanted Help? (For Example, If You [place] Very Nervous, Lonely, Or Blue; Got Sick And Had To Stay In Bed; Needed Someone To Talk To; Needed Help With Daily Chores; Or Needed Help Just Taking Care Of Yourself.) No- Not At All [email or web address] Information n ot available 05/21/2023 During The Past Four Weeks, What Was The Hardest Physical Activity You Could Do For At Least 2 Minutes? Moderate [email or web address] Information not available 05/21/2023 Can You Get To Places Out Of Walking Distance Without Help? (For Example, Can You Travel Alone On Buses Or Taxis, Or Drive Your Own Car?) Yes [email or web address] Information not available 05/21/2023 Can You Go Shopping For Groceries Or Clothes Without Someone? s Help? Yes [email or web address] Information not available 05/21/2023 Can You Prepare Your Own Meals? Yes [email or web address] Information not available 05/21/2023 Can You Do Your Housework Without Help? Yes [email or web address] Information not available 05/21/2023 Because Of Any Health Problems, Do You Need The Help Of Another Person With Your Personal Care Needs Such As Eating, Bathing, Dressing, Or Getting Around The House? No [email or web address] Information not available 05/21/2023 Can You Handle Your Own Money Without Help? Yes Information not available 05/21/2023 Are You Having Difficulties Driving Your Car? No [email or web address] Information no t available 05/21/2023 Do You Always Fasten Your Seat Belt When You Are In A Car? Yes- Usually [email or web address] Information not available 05/21/2023 How Often During The Past Four Weeks Have You Been Bothered By Any Of The Following Problems? Falling Or Dizzy When Standing Up? Never [email or web address] Information not available 05/21/2023 Sexual Problems? Never [email or web address] Informat ion not available 05/21/2023 Trouble Eating Well? Sometimes Information not available 05/21/2023 Teeth Or Denture Problems? Sometimes [email or web address] Information not available 05/21/2023 Problems Using The Telephone? Never [email or web address] Information not available 05/21/2023 Tiredness Or Fatigue? Sometimes [email or web address] Information not available 05/21/2023 Have You Had 2 Or More Falls Or Sustained An Injury With A Fall In The Last Year? No [email or web address] Information no t available 05/21/2023 Do You Have Difficulty With Walking Or Balance? No [email or web address] Information not available 05/21/2023 Do You Currently Use A Hearing Device? No [email or web address] Information not available 05/21/2023 Do You Currently Have Any Trouble With Your Vision? Yes Information no t available 05/21/2023 Do You Exercise For About 20 Minutes Three Or More Days A Week? Yes- Most Of The Time [email or web address] Information not available 05/21/2023 Are There Any Safety Concerns In Your Home (see Attached CDC Pamphlet)? No [email or web address] Information not available 05/21/2023 How Often Do You Have Trouble Taking Medicines The Way You Have Been Told To Take Them? I Always Take Them As Prescribed [email or web address] Information not available 05/21/2023 How Confident Are You That You Can Control And Manage Most Of Your Health Problems? Very Confident [email or web address] Information not available 05/21/2023 Do You Currently [...] Other Forms Of Tobacco Or Nicotine? No [email or web address] Information not available 05/21/2023 Sex: Female Functional Status None recorded. Mental Status None recorded. Family History Relationship Description Onset Age of this Age Resolved Age Notes LastModified by Organization Details LastModified Time Sister Family history of Hypertension [email or web address] Not available 12/2022 03:57:11 Sister Family history of breast cancer [email or web address] Not available 2022 03:57:12 Brother Family history of diabetes mellitus type 1 [email or web address] Not available 2022 03:57:12 Notes:*Problem: updated 2021 [...] preservative free, adsorbed 9 completed Not Available [facility] 01/15/2023 04:53:39 Tdap 8 completed Not Available [facility] 01/15/2023 04:53:39 zoster live 3 completed Not Available [facility] 01/15/2023 04:53:40 Pneumococcal conjugate PCV 13 6 completed Not Available [facility] 01/15/2023 04:53:40 Influenza, high-dose, trivalent, PF 8 completed Not Available [facility] 01/15/2023 04:53:41 Td(adult) unspecified formulation 3 completed Not Available [facility] 01/15/2023 04:53:41 Influenza, split virus, trivalent, preservative 6 completed Not Available [facility] 01/15/2023 04:53:41 Influenza, split virus, trivalent, preservative 5 completed Not Available [facility] 01/15/2023 04:53:41 Influenza, split virus, quadrivalent, PF 9 completed Not Available [facility] 01/15/2023 04:53:41 zoster recombinant 9 completed Not Available [facility] 01/15/2023 04:53:42 zoster recombinant 8 completed Not Available [facility] 01/15/2023 04:53:42 Influenza, high-dose, quadrivalent, PF 1 completed Not Available [facility] 01/15/2023 04:53:43 Influenza, high-dose, quadrivalent, PF 0 completed Not Available [facility] 01/15/2023 04:53:43 Influenza, high-dose, quadrivalent, PF 2 completed Not Available [facility] 01/15/2023 04:53:43 COVID-19, mRNA, LNP-S, PF, 100 mcg/0.5mL dose or 50 mcg/0.25mL dose 2 completed Not Available [facility] 01/15/2023 04:53:43 COVID-19 vaccine, vector-nr, rS-Ad26, PF, 0.5 mL 1 completed Not Available [facility] 01/15/2023 04:53:44 SARS-COV-2 (COVID-19) vaccine, UNSPECIFIED 1 completed Not Available [facility] 01/15/2023 04:53:44 SARS-COV-2 (COVID-19) vaccine, UNSPECIFIED 1 completed Not Available [facility] 01/15/2023 04:53:44 pneumococcal polysaccharide PPV23 5 completed Not Available [facility] 01/15/2023 04:53:45 Hep B, unspecified formulation 4 completed Not Available [facility] 01/15/2023 04:53:45 Hep B, unspecified formulation 3 completed Not Available [facility] 01/15/2023 04:53:46 Hep B, unspecified formulation 3 completed Not Available [facility] 01/15/2023 04:53:46 influenza, unspecified formulation 0 completed Not Available [facility] 01/15/2023 04:53:47 influenza, unspecified formulation 3 completed Not Available [facility] 01/15/2023 04:53:47 influenza, unspecified formulation 9 completed Not Available [facility] 01/15/2023 04:53:47 influenza, unspecified formulation 1 completed Not Available [facility] 01/15/2023 04:53:47 influenza, unspecified formulation 7 completed Not Available [facility] 01/15/2023 04:53:48 influenza, unspecified formulation 4 completed Not Available [facility] 01/15/2023 04:53:48 influenza, unspecified formulation 8 completed Not Available [facility] 01/15/2023 04:53:48 influenza, unspecified formulation 2 completed Not Available [facility] 01/15/2023 04:53:48 Influenza, high-dose, quadrivalent, PF 3 completed Not Available [facility] 03/19/2023 05:33:03 COVID-19, mRNA, LNP-S, PF, herminio-sucrose, 30 mcg/0.3 mL 3 completed Not Available [facility] 03/19/2023 05:33:03 COVID-19, mRNA, LNP-S, bivalent, PF, 50 mcg/0.5 mL or 25mcg/0.25 mL dose 4 completed DENYS Bauer, [facility] 12/20/2023 15:23:33 Respiratory syncytial virus (RSV) vaccine, unspecified 4 completed DENYS Bauer, [facility] 12/20/2023 15:24:29 influenza, unspecified formulation 4 completed DENYS Bauer, [place] [facility] 12/20/2023 15:25:14 Past Encounters Encounter ID Performer Location Encounter Start Date Encounter Closed Date Diagnosis/Indication Diagnosis SNOMED-CT Code Diagnosis ICD10 Code Diagnosis Note [id number] LOLLY CORTEZ MD [facility] [address] [place] [address] 05/21/2023 10:03:54 05/21/2023 11:37:49 Onychomycosis 679019574 B35.1 There is bothering her more, more difficult to trim her toenails. She also has a callus that she would like looked with podiatry. Asthma 970059251 J45.90 9 Rare use of albuterol, she will continue the same Cardiomyopathy 80957792 I10 Clinically remaining stable, has had significan [...] well-contr olled. Disorder of hip joint 42 0644236 M12.859 Doing well status post now bilateral total hip replacemen ts. 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 She is working on exercises in addition to walking. Mammo will be due in the fall. Up-to-date with colonoscop y. [id number] [facility] [address] [facility] [place] [address] 09/01/2023 10:23:16 09/01/2023 13:28:10 Vertigo 314107708 R42 Patient has been experienci ng vertigo [...] on. Impacted c erumen of bilateral ears [id number] 797226 H61.23 Ear lavage performed with complete resolution and no signs of infection. [id number] LOLLY CORTEZ MD [facility] [address] [place] [address] 11/26/2023 07:26:08 11/26/2023 08:10:59 Screening mammography 21227867 Z12.31 Adjustment disorder 1722 6007 F43.20 , Still grieving the loss of her about a year and a half ago. She still finds it hard being in the house alone. Her kids and grandkids have been with a good visiting regularly which she appreciate s. Asthma 847932010 J45.90 9 Rare use of albuterol, she will continue the same Essential hypertension 92844828 I10 Under reasonably good control, see cardiomyop athy below Guttate psoriasis 018860 00 L40.4 , Following dermatolog y. Will be starting photothera py in addition to the clobetasol once the colder weather arrives. Has been just trying to get some sun exposure on her skin over the summer. Currently psoriasis is not too bad Cardiomyopathy 38630819 I10 Clinically remaining stable, has had significan [...] okay continuing to take it. Up-to-date with [facility]. Creatinine remains a little elevated as is BUN, although these have improved. Encouraged increased fluid intake Hyperlipidemia 67749839 E78.5 on rosuvastat in, lipids well-contr olled, normal LFTs Prediabetes 850204592 R7 3.03 And obesity. A1c 5.9, This [...] continue doing that. She has met with [facility]. Health Concerns Section Related Observation LastModified by Organization Detai ls LastModified Time None Recorded Concern Status LastModified by Organization Details LastModified Time None Recorded Advance Directives Directive None Recorded Payers Encounter Date Sequence Insurance Name Policy Number Policy Lema Covered Member ID Lema Member ID Guarantor Name 05/21/2023 1 [id number]ANT[place] - [place]PO) [id number] Luna Mott [id number] Luna Mott 09/01/2023 1 [place] - [place]) [id number] Luna Mott [id number] Luna Mott 11/26/2023 1 [place] - [place]) [id number] Luna Mott [id number] Luna Mott Notes Date Note Type Note Provider Name and Address Organization Details Recorded Time 05/21/2023 text/html Thais here today for an annual wellness exam MD [address], [place], [address], [facility]. 05/24/2023 18:32:35 09/01/2023 text/html Luna is [...] the name of it. [address], [place], [address], [facility]. 09/01/2023 13:55:07 11/26/2023 text/html Thais here today for follow-up of cardiomyopathy, obesity MD [address], [place], [address], [facility]. 11/28/2023 09:26:44 OBGyn Episode No OBEpisode recorded.
--- OUTSIDE RECORDS SUMMARY | 2024-04-07 11:02 | XMS_ITS | Encounter Summary ---
Author Organization [facility] Address [address] [place] [address] Care Team Providers Care Multimedia Services Manager Name Role Phone Lolly Oliveira MD Primary Care Provider [phone] Encounter Details Date Type Department Care Team (Late st Contact Info) Description 05/29/2002 Results Only [facility] conversion [address] [place] [address] Silvia Diehl, [address] [place] [phone] Social History Tobacco Use Types Packs/Day Years [...] Name: ? LYLEJING ? Accession #: ? [id number] : ? 1950 (Age: 51) ??F ?Collect Date: ? 05/29/2002 Location: ? [facility] ? Receive Date: ? 05/31/2002 Provider: ?SILVIA DIEHL SPLICING SUPERVISOR Copy to: ? Specimen/Source: ?ThinPrep Pap Test, [...] [facility] 05/29/2002 05/31/2002 us Silvia Diehl SPLICING SUPERVISOR PATHOLOGY ORDERABLES Final R esult [facility] [address] [place] [address] documented in this encounter Visit Diagnoses Not on filedocumented in this encounter Care Teams Multimedia Services Manager Relationship Specialty Start Date End Date Lolly Oliveira MD [address] [place] [address] PCP - General 11/13/08 documented as of this encounter
--- OUTSIDE RECORDS SUMMARY | 2024-04-07 11:02 | XMS_ITS | Encounter Summary ---
Author Organization [facility] Address [address] [place] [address] Care Team Providers Care Head Bone Grinder Name Role Phone Lolly Oliveira MD Primary Care Provider [phone] Encounter Details Date Type Department Care Team (Late st Contact Info) Description 05/27/2021 Lab Requisition [facility] Pathology & Laboratory Medicine - [address] [address] Iman Moran, DO [address] [place], [place] [id number] Encounter for other general examination Social History [...] explore management options, if applicable. 05/30/2021 13:31 [facility] Final Diagnosis A. COLON, POLYP AT 90 CM, BIOPSY/POLYPECTOM Y: - Tubular adenoma. 05/30/2021 13:31 [facility] Attestation By the signature below, the attending physician certifies that they have 1) personally conducted a gross and/or microscopic examination of the described specimen(s), and/or personally interpreted the results of laboratory testing of the described specimen(s), and 2) personally rendered or confirmed the above diagnosis. 05/30/2021 13:31 [facility] at 1331 Clinical History Severe diverticula and polypectomy x1 05/30/2021 13:31 [facility] Gross Description A. Received in formalin labelled with proper patient identification (initials J, K) and colon polyp x1 at 90 cm is a light pineda polypoid tissue measuring 0.2 x 0.2 x 0.2 cm. Submitted intact in A1. MICKEY CARLOS(ASCP) 05/27/2021 19:11 05/30/2021 13:31 [facility] Performing Lab [facility] 05/30/2021 13:31 [facility] Scanned Images 05/30/2021 13:31 [facility] Tissue ENTIRE COLON / Unknown 05/27/2021 11:23 EDT 05/27/2021 16:33 EDT us Iman Moran DO PATHOLOGY ORDERABLES Final Re sult [facility] [address] [place] [address] documented in this encounter Visit Diagnoses Diagnosis Encounter for other general examination documented in this encounter Care Teams Head Bone Grinder Relationship Specialty Start Date End Date Lolly Oliveira MD [address] [place] [address] PCP - General 11/13/08 documented as of this encounter
--- OUTSIDE RECORDS SUMMARY | 2024-04-07 11:02 | XMS_ITS | Encounter Summary ---
Author Organization [facility] Address [facility] [place] [address] Care Team Providers Care Data Analytics Specialist Name Role Phone Lolly Oliveira MD Primary Care Provider [phone] Encounter Details Date Type Department Care Team (Late st Contact Info) Description 11/11/2022 Orders Only Cardiology at [address] [phone] Lalit Mcmahon MD [facility] [place] [address] Nonischemic cardiomyopathy Social History Tobacco Use Types [...] Contact Info) Description 04/15/2024 10:00 AM [facility] Hospital Encounter Non-Invasive [place] [phone] Arrived documented as of this encounter Visit Diagnoses Diagnosis Nonischemic cardiomyopathy Other primary cardiomyopathies documented in this encounter Care Teams Data Analytics Specialist Relationship Specialty Start Date End Date Berrian, Lolly M, MD [address] [place] [address] PCP - General 07/17/13 documented as of this encounter
--- OUTSIDE RECORDS SUMMARY | 2024-04-07 11:02 | XMS_ITS | Encounter Summary ---
Author Organization [facility] Address [facility] [place] [address] Care Team Providers Care Artillery Maintenance Supervisor Name Role Phone Lolly Oliveira MD Primary Care Provider [phone] Encounter Details Date Type Department Care Team (Late st Contact Info) Description 05/03/2023 Telephone Cardiology at [address] [phone] Lalit Mcmahon MD [facility] [place] [address] Social History Tobacco Use Types Packs/Day Years [...] Hospital Encounter Non-Invasive [place] [address] Arrived documented as of this encounter Visit Diagnoses Not on filedocumented in this encounter Care Teams Artillery Maintenance Supervisor Relationship Specialty Start Date End Date Lolly Oliveira MD [address] [place] [address] PCP - General 07/17/13 documented as of this encounter
--- OUTSIDE RECORDS SUMMARY | 2024-04-07 11:02 | XMS_ITS | Encounter Summary ---
Author Organization [facility] Address [address] [place] [address] Care Team Providers Care Facilities Locator Name Role Phone Lolly Oliveira MD Primary Care Provider [phone] Encounter Details Date Type Department Care Team (Late st Contact Info) Description 02/20/2020 Lab Requisition [facility] Pathology & Laboratory Medicine - [address] [address] Outr Resulting Lab, Provider Social History Tobacco [...] in accordance with CLIA regulations, [employer] (CAP) guidelines (May 25, 2019), and FDA guidance (May 06, 2019). This test is only for use under the Food and Drug Administration's Emergency Use Authorization. Swab ENTIRE NASOPHARYNX / Unknown 02/19/2020 16:30 EST 02/20/2020 16:09 EST us Provider Outr Resulting Lab MICROBIOLOGY - GENER AL ORDERABLES Final Result [facility] [place], [place] * COVID-19 TESTING (02/19/2020 16:30 EST) COVID-19 rt-PCR Result NEGATIVE Negative 02/22/2020 23:41 EST [facility] Comment: 2019-novel Coronavirus (2019-nCoV) [...] in accordance with CLIA regulations, [employer] (CAP) guidelines (May 25, 2019), and FDA guidance (May 06, 2019). This test is only for use under the Food and Drug Administration's Emergency Use Authorization. Performing Lab [facility] 02/22/2020 23:41 EST [facility] Swab 02/19/2020 16:3 0 EST 02/20/2020 16:09 EST us Provider Outr Resulting Lab MICROBIOLOGY - GENER AL ORDERABLES Final Result [facility] [address] [place] [address] [facility] [place], [place] documented in this encounter Visit Diagnoses Not on filedocumented in this encounter Care Teams Facilities Locator Relationship Specialty Start Date End Date Lolly Oliveira MD [address] [place] [address] PCP - General 11/13/08 documented as of this encounter
--- OUTSIDE RECORDS SUMMARY | 2024-04-07 11:02 | XMS_ITS | Encounter Summary ---
Author Organization [facility] [place] [address] Care Team Providers Care Television Antenna Installer Name Role Phone Lolly Oliveira MD Primary Care Provider Encounter Details Date Type Department Care Team (Late st Contact Info) Description 03/17/2023 Telephone Cardiology at [address] [phone] Saranya Ma Social History Tobacco Use Types Packs/Day Years Used Date Smoking Tobacco: Never Alcohol Use Standard Drinks/Week Comments Not Currently 0 (1 standard drink = 0.6 oz pur e alcohol) [facility] Inpatient Questions Answer Date Recorded Does Anyone [...] 9:43 AM EST Echo order faxed to [facility] at [phone]. No Prior auth needed. Ref #:[id number]. Saranya Ma Sr. Clinical Procedure [place]/Automobile Repossessor documented in this encounter Plan of Treatment Upcoming Encounters Date Type Department Care Team (Late st Contact Info) Description 04/15/2024 10:00 AM [facility] Hospital Encounter Non-[place] [address] Arrived documented as of this encounter Visit Diagnoses Not on filedocumented in this encounter Care Teams Television Antenna Installer Relationship Specialty Start Date End Date Lolly Oliveira MD [address] [place] [address] PCP - General 07/17/13 documented as of this encounter
--- OUTSIDE RECORDS SUMMARY | 2024-04-07 11:02 | XMS_ITS | Encounter Summary ---
Author Organization [facility] [place] [address] Care Team Providers Care Field Rep Name Role Phone Lolly Oliveira MD Primary Care Provider [phone] Reason for Visit * Reason Comments Follow-up 8 weeks UVB treatmen t twice weekly Encounter Details Date Type Department Care Team (Late st Contact Info) Description 07/19/2023 11:00 AM EDT Office Visit Dermatology at [address] [phone] Clay Ramírez MD [address], [facility] A DERMATOLOGY [place], [place] [phone] Psoriasis Social History Tobacco Use Types Packs/Day [...] [facility] Hospital Encounter [place] [address] Arrived documented as of this encounter Visit Diagnoses Diagnosis Psoriasis Other psoriasis documented in this encounter Care Teams Field Rep Relationship Specialty Start Date End Date Lolly Oliveira MD [address] [place] [address] PCP - General 07/17/13 documented as of this encounter
--- OUTSIDE RECORDS SUMMARY | 2024-04-07 11:02 | XMS_ITS | Encounter Summary ---
Author Organization [facility] Address [address] [place] [address] Care Team Providers Care Solution Design Engineer Name Role Phone Lolly Oliveira MD Primary Care Provider [phone] Encounter Details Date Type Department Care Team (Late st Contact Info) Description 03/06/2003 Results Only [facility] conversion [address] [place] [address] Lolly Oliveira MD [address] [place], [place] [phone] Social History Tobacco Use Types Packs/Day Years [...] ORDERABLES Final Resu lt [facility] [address] [place] [address] documented in this encounter Visit Diagnoses Not on filedocumented in this encounter Care Teams Solution Design Engineer Relationship Specialty Start Date End Date Lolly Oliveira MD [address] [place] [address] PCP - General 11/13/08 documented as of this encounter
--- OUTSIDE RECORDS SUMMARY | 2024-04-07 11:02 | XMS_ITS | Encounter Summary ---
Author Organization [facility] [place] [address] Care Team Providers Care Glassie Name Role Phone Lolly Oliveira MD Primary Care Provider [phone] Encounter Details Date Type Department Care Team (Late st Contact Info) Description 11/16/2022 Telephone Cardiology at [address] [phone] Luna Rousseau, RN Social History Tobacco Use [...] BP today was 118/57 at CR at [facility]. Pt is going twice [...] [facility] Hospital Encounter Non-[place] [phone] Arrived documented as of this encounter Visit Diagnoses Not on filedocumented in this encounter Care Teams Glassie Relationship Specialty Start Date End Date Lolly Oliveira MD [address] [place] [address] PCP - General 07/17/13 documented as of this encounter
--- OUTSIDE RECORDS SUMMARY | 2024-04-07 11:02 | XMS_ITS | Encounter Summary ---
Author Organization [facility] Address [address] [place] [address] Care Team Providers Care Basket Filler Name Role Phone Lolly Oliveira MD Primary Care Provider [phone] Encounter Details Date Type Department Care Team (Late st Contact Info) Description 04/25/2009 Orders Only [facility] - [facility] [address] [place], [place] [phone] Lolly Oliveira MD [address] [place], [place] [phone] Social History Tobacco Use Types Packs/Day Years [...] ? JING ALVARENGA ? Accession #: ? [id number] ? : ? 1950 (Age: 58) ??F [...] ORDERABLES Final Resu lt Performing Organization Address [facility]/State/ZIP Co de Phone Number [facility] [address] [place] [address] documented in this encounter Visit Diagnoses Not on filedocumented in this encounter Care Teams Basket Filler Relationship Specialty Start Date End Date Lolly Oliveira MD [address] [place] [address] PCP - General 11/13/08 documented as of this encounter
--- OUTSIDE RECORDS SUMMARY | 2024-04-07 11:02 | XMS_ITS | Encounter Summary ---
Author Organization [facility] Address [address] [place] [address] Care Team Providers Care Box Builder Name Role Phone Lolly Oliveira MD Primary Care Provider [phone] Encounter Details Date Type Department Care Team (Late st Contact Info) Description 03/21/2019 Lab Requisition [facility] Pathology & Laboratory Medicine - [address] [address] Unknown, Provider, Social History Tobacco Use Types [...] 211 - 911 pg/mL 03/22/2019 11:52 EST [facility] Blood VENOUS BLOOD / Unknown 03/16/2019 9:25 EST 03/21/2019 21:35 EST us Provider Unknown CHEMISTRY & BLOOD GAS ORDERA BLES Final Result [facility] [address] [place] [address] documented in this encounter Visit Diagnoses Not on filedocumented in this encounter Care Teams Box Builder Relationship Specialty Start Date End Date Lolly Oliveira MD [address] [place] [address] PCP - General 11/13/08 documented as of this encounter
--- OUTSIDE RECORDS SUMMARY | 2024-04-07 11:02 | XMS_ITS | Encounter Summary ---
Author Organization [facility] Address [facility] [place] [address] Care Team Providers Care U.[place]. Senator Name Role Phone Lolly Oliveira MD Primary Care Provider [phone] Encounter Details Date Type Department Care Team (Late st Contact Info) Description 01/29/2023 Notes Only Cardiology at [address] [phone] Merle Lin PA [facility] [place] [address] Social History Tobacco Use Types Packs/Day Years [...] pdf document Date of transmission: 01/29/2023 Device sole rounding machine operator: BSI Device type: ECONOMIC RESEARCH ANALYST-D Presenting rhythm: /RVP/LVP AP 21% Right GOLF STUD RIVETER 100% Left GOLF STUD RIVETER: 100% Battery: 10.5 years Heart[employer] Index rising in setting of increasing S3 intensity, increasing respiratory rate, increasing night heart rate, and increasing mean heart rate. MICKEY Villa 01/29/2023 9:06 AM documented in this encounter Plan of Treatment Upcoming Encounters Date Type Department Care Team (Late st Contact Info) Description 04/15/2024 10:00 AM EST Hospital Encounter Non-Invasive [place] [address] Arrived documented as of this encounter Visit Diagnoses Not on filedocumented in this encounter Care Teams U.[place]. Senator Relationship Specialty Start Date End Date Lolly Oliveira MD [address] [place] [address] PCP - General 07/17/13 documented as of this encounter
--- OUTSIDE RECORDS SUMMARY | 2024-04-07 11:02 | XMS_ITS | Encounter Summary ---
Author Organization [facility] Address [address] [place] [address] Care Team Providers Care Ventilating Engineer Name Role Phone Lolly Oliveira MD Primary Care Provider [phone] Encounter Details Date Type Department Care Team (Late st Contact Info) Description 04/01/2005 Results Only [facility] conversion [address] [place] [address] Blair Dukes MD [address] [place] [id number] Social History Tobacco Use Types Packs/Day Years [...] ? JING ALVARENGA ? Accession #: ? [id number] ? : ? 1950 (Age: 54) ??F [...] ? Received in Hollande' s fixative labelled Lyles and #1 ??terminal ileum bx is a single 0.3 x 0.2 x 0.2 cm tissue, submitted intact as (A). Received in Hollande' s fixative labelled Lyles and #2 ??transverse colon bx is a single 0.2 x 0.2 x 0.2 cm tissue, submitted intact as (B). ??(Dr. Lechuga)/[facility] End of Report [facility] 04/01/2005 04/02/2005 15: 24 EST us Blair Dukes MD PATHOLOGY ORDERABLES Final Resul t [facility] [address] [place] [address] documented in this encounter Visit Diagnoses Not on filedocumented in this encounter Care Teams Ventilating Engineer Relationship Specialty Start Date End Date Lolly Oliveira MD [address] [place] [address] PCP - General 11/13/08 documented as of this encounter
--- OUTSIDE RECORDS SUMMARY | 2024-04-07 11:02 | XMS_ITS | Encounter Summary ---
Author Organization [facility] [place] [address] Care Team Providers Care Technologist Development Name Role Phone Lolly Oliveira MD Primary Care Provider [phone] Encounter Details Date Type Department Care Team [...] Encounter Non-Invasive [place] [address] Arrived documented as of this encounter Visit Diagnoses Not on filedocumented in this encounter Care Teams Technologist Development Relationship Specialty Start Date End Date Lolly Oliveira MD [address] [place] [address] PCP - General 07/17/13 documented as of this encounter
--- OUTSIDE RECORDS SUMMARY | 2024-04-07 11:02 | XMS_ITS | Encounter Summary ---
Author Organization [facility] Address [address] [place] [address] Care Team Providers Care Brass Buffer Name Role Phone Lolly Oliveira MD Primary Care Provider [phone] Encounter Details Date Type Department Care Team (Late st Contact Info) Description 04/12/2007 Results Only [facility] conversion [address] [place] [address] Lolly Oliveira MD [address] [place], [place] [phone] Social History Tobacco Use Types Packs/Day Years [...] ? JING ALVARENGA ? Accession #: ? [id number] : ? 1950 (Age: 56) ??F ?Collect Date: ? 04/12/2007 Location: ? [facility] ? Receive Date: ? 04/13/2007 Provider: ?LOLLY OLIVEIRA MD Copy to: ? Specimen/Source: ?ThinPrep Pap Test, Cervix/Endocervix, processed on [employer] ThinPrep Imaging System, with manual evaluation Last [...] ORDERABLES Final Resu lt [facility] [address] [place] [address] documented in this encounter Visit Diagnoses Not on filedocumented in this encounter Care Teams Brass Buffer Relationship Specialty Start Date End Date Lolly Oliveira MD [address] [place] [address] PCP - General 11/13/08 documented as of this encounter
--- OUTSIDE RECORDS SUMMARY | 2024-04-07 11:02 | XMS_ITS | Encounter Summary ---
Author Organization [facility] Address [address] [place] [address] Care Team Providers Care Merchandising Intern Name Role Phone Lolly Oliveira MD Primary Care Provider [phone] Encounter Details Date Type Department Care Team (Late st Contact Info) Description 11/13/2020 Lab Requisition [facility] Pathology & Laboratory Medicine - [address] [address] Outr Resulting Lab, Provider Social History Tobacco [...] [facility] [address] [place] [address] * COVID-19 TESTING (11/13/2020 7:30 EDT) COVID-19 rt-PCR Result Negative Negative 11/14/2020 11:46 EDT [facility] Comment: [...] performed using the med SARS-CoV-2 assay ([employer] on the Med 6800 System Performing Lab Med [address] [facility] Lab 11/14/2020 11:46 EDT [facility] Swab 11/13/2020 7:30 EDT 11/13/2020 20:57 EDT us Provider Outr Resulting Lab MICROBIOLOGY - GENER AL ORDERABLES Final Result Performing Organization Address [facility] Co de Phone Number [facility] [address] [place] [address] documented in this encounter Visit Diagnoses Not on filedocumented in this encounter Care Teams Merchandising Intern Relationship Specialty Start Date End Date Lolly Oliveira MD [address] [place] [address] PCP - General 11/13/08 documented as of this encounter
--- OUTSIDE RECORDS SUMMARY | 2024-04-07 11:03 | XMS_ITS | Encounter Summary ---
Author Organization [facility] [place] [address] Care Team Providers Care Optical Store Manager Name Role Phone Lolly Oliveira MD Primary Care Provider Encounter Details Date Type Department Care Team (Latest Contact Info) Description 07/20/2013 9:26 AM EDT - 07/20/2013 11:59 PM EDT Hospital En[place] [phone] CLINIC, Lolly So MD [address] [place], [place] [phone] Mammographic microcalcification Discharge Disposition: Home Social History [...] AM EST Hospital Encounter [place] [address] Arrived documented as of this encounter Procedures [...] does not layer and, therefore, are not merchandising representative of milk of calcium. Again, these [...] does not layer and, therefore, are not merchandising representative of milk of calcium. Again, these have an amorphous andpunctate appearance and remain indeterminate. Stereotactic guided biopsy isrecommended. Alia Fraire MD IMG MAMMO ORDERABLES documented in this encounter Visit Diagnoses Diagnosis Mammographic microcalcification documented in this encounter Care Teams Optical Store Manager Relationship Specialty Start Date End Date Lolly Oliveira MD [address] [place] [address] PCP - General 07/17/13 documented as of this encounter
--- OUTSIDE RECORDS SUMMARY | 2024-04-07 11:03 | XMS_ITS | Encounter Summary ---
[place] [address] Care Team Providers Care Pathology Collector Name Role Phone Lolly Oliveira MD Primary Care Provider [phone] Encounter Details Date Type Department Care Team (Late st Contact Info) Description 04/09/2022 Refill Dermatology at [address] [address] Nora Meredith, EXIT BOOTH AGENT Social History Tobacco Use Types Packs/Day Years [...] [facility] Hospital Encounter Non[place] [address] Arrived documented as of this encounter Visit Diagnoses Not on filedocumented in this encounter Care Teams Pathology Collector Relationship Specialty Start Date End Date Lolly Oliveira MD [address] [place] [address] PCP - General 07/17/13 documented as of this encounter
--- OUTSIDE RECORDS SUMMARY | 2024-04-07 11:03 | XMS_ITS | Encounter Summary ---
Author Organization Counts Include [facility] Address [place] [address] Care Team Providers Care Associate Creative Director Name Role Phone Lolly Oliveira MD Primary Care Provider [phone] Reason for Visit * Auth/Cert (Routine) Specialty Diagnoses / Procedures Referred By Contac t Referred To Contact Diagnoses Left bundle-branch block, unspecified Other cardiomyopathies Left bundle branch block [I44.7]Nonischemic cardiomyopathy [I42.8] Procedures PRG CATH PLMT LEFT HEART CATH & ARTS W/INJ & ANGIO IMG S&I ELECTROPHYSIOLOGY PROCEDURE Lalit Mcmahon MD [facility] [place] [address] [facility] Referral ID Status Reason Start Date Expiration Date Visits Re quested Visits Authorized [id number] 1 1 Encounter Details Date Type Department Care Team (Latest Contact Info) Description 07/23/2022 11:39 AM EDT - 07/24/2022 10:23 AM EDT Hospital [place] [phone] Lalit Mcmahon MD [facility] [place] [address] Left bundle branch block; Nonischemic cardiomyopathy; Cardiac resynchronization therapy defibrillator (SPORTS PHYSICAL THERAPIST-D) in place Discharge Disposition: Home Social History [...] MD Follow-up Recommendations for Providers: - s/p SPORTS PHYSICAL THERAPIST-D implant - post implant QRS 130 [...] Nevus ??? Solar lentigo Operations/Major Procedures: 07/23/22: [facility] SPORTS PHYSICAL THERAPIST-D implant History of Presentation: 71 y.o. female with a history of HFrEF, LBBB, QRS >150, NYHA II who is POD#1 of SPORTS PHYSICAL THERAPIST-D implant ([employer]). Hospital Course: Elective admission for SPORTS PHYSICAL THERAPIST-D implant Admitted post-implant for pain management, [...] (heart failure with reduced ejection fraction) [I50.20] SPORTS PHYSICAL THERAPIST-D implant Admission Condition: good Indication for [...] g Refills: 3 fluticasone propionate 50 mcg/actuation Seaman, Suspension Commonly known as: Flonase 1 spray [...] incision. Make sure to use a cloth mercerizing supervisor (such as a towel) in between [...] F. The office scheduling phone number is [phone]. ARM MOVEMENT RESTRICTIONS POST-IMPLANT - Do not [...] please call the Cardiac ElectrophysiologyTriage Nurse at [phone], option 3. General Instructions None Discharge References/Attachments [...] incision. Make sure to use a cloth mercerizing supervisor (such as a towel) in between [...] F. The office scheduling phone number is [phone]. ARM MOVEMENT RESTRICTIONS POST-IMPLANT - Do not [...] please call the Cardiac ElectrophysiologyTriage Nurse at [phone], option 3. documented in this encounter Medications [...] with spacer fluticasone propionate (Flonase) 50 mcg/actuation Seaman, Suspension 1 spray by Each Nare route [...] Cardiac Electrophysiology Post-Implant Device Interrogation Luna Mott [id number] 07/24/2022 History: Luna Mott is a 71 y.o. female with a history of HFrEF, LBBB, QRS >150, NYHA II who is POD#1 of SPORTS PHYSICAL THERAPIST-D implant ([employer]). Overall feels well this morning. Ready [...] WOB Neuro- A&Ox3 Device Interrogation: Data ?? System Integration Engineer Model # Serial # Generator [employer] [id number] Atrial Lead [employer] [id number] [id number] RV Lead [employer] 0672 [id number] LV Lead [employer] 4674 [id number] ?? Diagnostics Pacing Mode: DDD 60-130 Underlying Rhythm: [place] Atrial Episodes: None Ventricular Episodes: None FINAL PROGRAMMING: Pacing: Mode Lower rate (ppm) Upper rate (ppm) ?? DDD 60 130 VF: Rate (bpm) #Antitachycardia pacing First shock energy (J) ?? 200 Quick convert 41 VT: 170 Monitor only Monitor only ? Battery and Leads Impedances (ohms) Sensing (mV) Thresholds HV RA RV LV RA RV LV RA RV LV 73 237 518 4150 (LVa) 7.7 13.1 >25 0.4V @ 0.4 ms 0.4V @ 0.4 ms 0.5 V @ 1.0 ms POD#1 CXR: All leads in nominal positioning Impression: 71 y.o. female who is s/p SPORTS PHYSICAL THERAPIST-D implant for LBBB, NYHA II, HFrEF. [...] [facility]) Fadi Nunez MD 07/24/2022 Pager: [phone] I met with the patient today and [...] agreement. ? Dr. Lalit Mcmahon, electrophysiology attending ([id number]) * Zaria Wright RN - 07/23/2022 8:28 [...] HF, QRS > 150 ms presents for SPORTS PHYSICAL THERAPIST-D placement. ROS: Denies recent fevers or [...] 0.9) flush 5 mL 5 mL Intravenous [id number] ramos MD ??? sodium chloride 0.9 % [...] HF, QRS > 150 ms presents for SPORTS PHYSICAL THERAPIST-D placement. Backup would be LBBAP lead. Antibiotics: cefazolin Rationales for, intended benefits and potential risk of planned procedures reviewed. The patient indicated understanding and agreement with the plan. Informed consent signed. Procedure checklist completed. Fadi Nunez MD Cardiac Electrophysiology Fellow [facility] Pager [phone] 07/23/2022 I met with the patient today [...] agreement. ? Dr. Lalit Mcmahon, electrophysiology attending ([id number]) documented in this encounter Miscellaneous Notes * Brief Op Note - Lalit Mcmahon MD - 07/23/2022 4:04 PM EDT Brief Operative Note Patient Name: Luna Mott : [id number] MR#: [id number] Case Date: 07/23/2022 Surgeon: Surgeon(s) and Role: [...] Hospital Encounter Non-[place] [address] Arrived Scheduled Orders Name Type Priority Associated Diagnoses Orde r Schedule EKG 12 Lead ECG Routine Cardiac resynchronization therapy defibrillator (SPORTS PHYSICAL THERAPIST-D) in place One Time for 1 [...] (Bezet) 522 ms MUSE SYSTEM Calculated R [place] 78 degrees MUSE SYSTEM Calculated T [place] -71 degrees MUSE SYSTEM INTERPRETATION AV dual-paced [...] have questions please contact the health healthcare account manager that requested your imaging first. ? Electronically signed by: Kwame Vargas MD, [facility] ([phone]), at 07/24/2022 6:43 AM Narrative 07/24/2022 6:43 [...] who have questions please contactthe health healthcare account manager that requested your imaging first. Electronically signed by: Kwame Vargas MD, [facility]([phone]), at 07/24/2022 6:43 AM Lalit Mcmahon MD IMG DX ORDERABLES * ELECTROPHYSIOLOGY PROCEDURE (07/23/2022 1:11 PM EDT) Anatomical Region Laterality Modality Other Narrative 07/23/2022 4:24 PM EDT Table formatting from the original result was not included. BIVENTRICULAR ICD IMPLANTATION Care Worker: Lalit Mcmahon MD Fellow: Fadi Nunez [...] the entire procedure. LEAD AND GENERATOR DATA: System Integration Engineer Model # Serial # Generator [employer] [id number] Atrial Lead [employer] 7841 [id number] RV Lead [employer] 0672 342581 LV Lead [employer] 4674 876453 PACE/SENSE DATA: Sensed wave (mV) Threshold (V) [...] (cGycm2) 300 CONCLUSIONS: Successful implantation of a [employer] biventricular ICD for primary prevention and treatment of symptoms related to congestive heart failure. Follow up in EP clinic in 1-2 months. Procedures performed: new ICD system ( cpt 41658-P0); implant LV lead at time of ICD insertion (cpt 84509) I have read, edited and approve of this report: Lalit Mcmahon MD S Cardiac Electrophysiology 07/23/2022 4:22 PM Procedure Note Lalit Mcmahon MD - 07/23/2022 BIVENTRICULAR ICD IMPLANTATION Care Worker: Lalit Mcmahon MD Fellow: Fadi Nunez [...] in the entireprocedure. LEAD AND GENERATOR DATA: System Integration Engineer Model # Serial # Generator [employer] [id number] Atrial Lead [employer] 7841 [id number] RV Lead [employer] 0672 952183 LV Lead [employer] 4674 514058 PACE/SENSE DATA: Sensed wave (mV) Threshold (V) [...] (cGycm2) 300 CONCLUSIONS: Successful implantation of a [employer] biventricular ICD forprimary prevention and treatment of symptoms related to congestive heartfailure. Follow up in EP clinic in 1-2 months. Procedures performed: new ICD system ( cpt 03558-Y5); implant LV lead attime of ICD insertion (cpt 92402) I have read, edited and approve of this report: Lalit Mcmahon MD [facility] Cardiac Electrophysiology 07/23/2022 4:22 PM Lalit Mcmahon MD EP PROCEDURE ORDERAB LES * POCT Glucose (07/23/2022 12:54 PM EDT) Glucose, POC 83 65 - 199 mg/dL [facility] Comment: Supplemental ranges: <140 mg/dL before meals <180 mg/dL all other times of the day Blood 07/23/2022 12:5 4 PM EDT 07/23/2022 12:54 PM EDT Lalit Mcmahon MD POINT OF CARE TEST O RDERABLES Performing Organization Address [facility] Co de Phone Number [facility] [place] [address] * EKG 12 Lead (07/23/2022 12:33 PM EDT) Ventricular rate 72 BPM MUSE SYSTEM Atrial Rate 72 BPM MUSE SYSTEM P-R Interval 158 ms MUSE SYSTEM QRS Duration 176 ms MUSE SYSTEM Q-T Interval 458 ms MUSE SYSTEM QTC Calculated (Bezet) 501 ms MUSE SYSTEM Calculated P [place] 34 degrees MUSE SYSTEM Calculated R [place] 12 degrees MUSE SYSTEM Calculated T [place] -173 degrees MUSE SYSTEM INTERPRETATION Normal sinus rhythm Left bundle branch block Abnormal ECG No previous ECGs available Confirmed by MD Salome, Lalit ([id number]) on 07/23/2022 1:19:03 PM MUSE SYSTEM 07/23/2022 12:3 3 PM EDT 07/23/2022 1:19 PM EDT Lalit Mcmahon MD ECG ORDERABLES Performing Organization Address [facility] de Phone Number MUSE SYSTEM * Differential, Automated (07/23/2022 11:55 AM EDT) Neutrophil % 62.6 % [facility] Neutrophil Absolute 4.14 1.70 - 6.10 x10(3)/[facility] Lymph % 27.0 % [facility] Lymphocytes Abs 1.8 0.9 - 3.2 x10(3)/[facility] Monocyte % 7.3 % [facility] Monocyte Abs 0.5 0.3 - 0.9 x10(3)/[facility] Eos % 2.3 % [facility] Eosinophils Abs 0.2 0.0 - 0.4 x10(3)/[facility] Basophil % 0.6 % [facility] Baso Absolute 0.0 0.0 - 0.1 x10(3)/[facility] Immature Gran % 0.20 % [facility] Comment: Immature granulocytes(IG's)percentage and [...] Lalit Mcmahon MD HEMATOLOGY ORDERABLE S [facility] [place] [address] * Hemogram (07/23/2022 11:55 AM EDT) White Blood Cell 6.6 4.0 - 9.5 x10(3)/[facility] Red Blood Cell 4.50 4.00 - 5.21 x10(6)/[facility] Hemoglobin 13.7 11.7 - 15.5 g/dL [facility] Hematocrit 42.5 35.7 - 45.8 % [facility] Mean Cell Volume 94.4 82.6 - 94.4 fL [facility] Mean Cell Hemoglobin 30.4 27.1 - 32.0 pg [facility] Mean Cell Hemoglobin Concentration 32.2 31.7 - 35.0 g/dL [facility] Platelet 193 145 - 357 x10(3)/[facility] RDW Standard Deviation 45.5 37.0 - 46.0 fL [facility] RDW coefficient of variation 13.2 11.5 - 14.1 % [facility] Mean Platelet Volume 9.5 7.6 - 12.9 fL [facility] NRBC% auto 0.0 % [facility] NRBC Absolute 0.000 0.000 - 0.000 x10(3)/mcL [facility] Blood 07/23/2022 11:5 5 AM EDT 07/23/2022 12:07 PM EDT Narrative Resulting Agency Comment Spec In Lab Lalit Mcmahon MD HEMATOLOGY ORDERABLE S [facility] [address] [place] [address] * (ABNORMAL) BMP w/fasting Glucose (07/23/2022 11:55 AM EDT) Glucose Fasting 110(H) 65 - 99 mg/dL [facility] Comment: ?Fasting* Glucose Interpretive [...] Urea Nitrogen 23(H) 8 - 18 mg/dL [facility] Creatinine 1.07 0.70 - 1.20 mg/dL [facility] Sodium 141 135 - 145 mmol/L [facility] Potassium 4.8 3.5 - 5.0 mmol/L [facility] Comment: Please note: ??Patients with WBC >100,000 may have falsely elevated Potassium levels. ??For accurate Potassium quantification in these patients send serum separator tube (gold top) for subsequent determinations. ??Contact the Clinical Chemistry Laboratory if there are any questions. Chloride 106 98 - 107 mmol/L [facility] Carbon Dioxide 26 22 - 31 mmol/L [facility] Anion Gap 9 5 - 15 mmol/L [facility] Calcium 9.7 8.5 - 10.5 mg/dL [facility] Est Glomerular Filtration Rate 55(L) >=60 mL/min/1. 73 m?? [facility] Comment: This patient's estimated GFR [...] MD CHEMISTRY ORDERABLES Performing Organization Address [facility] Co de Phone Number [facility] [place] [address] * Prothrombin Time (07/23/2022 11:55 AM EDT) Prothrombin Time 11.7 9.4 - 12.5 sec [facility] International Normalization Ratio 1.0 [facility] Comment: An INR <2.0 [...] MD HEMATOLOGY ORDERABLE S Performing Organization Address City/[facility] Co de Phone Number [facility] [place] [address] documented in this encounter Visit Diagnoses Diagnosis HFrEF (heart failure with reduced ejection fraction)- Primary Left bundle branch block Other left bundle branch block Nonischemic cardiomyopathy Other primary cardiomyopathies Cardiac resynchronization therapy defibrillator (SPORTS PHYSICAL THERAPIST-D) in place Left bundle branch block [...] Routine documented in this encounter Care Teams Associate Creative Director Relationship Specialty Start Date End Date Lolly Oliveira MD [address] [place] [address] PCP - General 07/17/13 documented as of this encounter
--- OUTSIDE RECORDS SUMMARY | 2024-04-07 11:03 | XMS_ITS | Encounter Summary ---
Author Organization [facility] [place] [address] Care Team Providers Care Station Operator Name Role Phone Lolly Oliveira MD Primary Care Provider [phone] Reason for Visit * Reason Comments Psoriasis Encounter Details Date Type Department Care Team (Late st Contact Info) Description 04/09/2022 1:45 PM EST Office Visit Dermatology at [address] [address] Clay Ramírez MD [address] [facility], [place] [address] Psoriasis, guttate Social History Tobacco Use Types [...] Hospital Encounter Non-[place] [address] Arrived documented as of this encounter Visit Diagnoses Diagnosis Psoriasis, guttate Other psoriasis documented in this encounter Care Teams Station Operator Relationship Specialty Start Date End Date Lolly Oliveira MD [address] [place] [address] PCP - General 07/17/13 documented as of this encounter
--- OUTSIDE RECORDS SUMMARY | 2024-04-07 11:03 | XMS_ITS | Encounter Summary ---
Author Organization [facility] [place] [address] Care Team Providers Care Meal Temperer Name Role Phone Unavailable Primary Care Provider Unavailabl e Encounter Details Date Type Department Care Team (Late st Contact Info) Description 07/14/2013 Orders [place] [address] Eleno Christian MD Social History Tobacco Use [...] Hospital Encounter [place] [address] Arrived documented as of this encounter Visit Diagnoses Not on filedocumented in this encounter
--- OUTSIDE RECORDS SUMMARY | 2024-04-07 11:03 | XMS_ITS | Encounter Summary ---
Author Organization [facility] [place] [address] Care Team Providers Care Line Person Name Role Phone Unavailable Primary Care Provider Unavailabl e Encounter Details Date Type Department Care Team (Late st Contact Info) Description 07/14/2013 External Results XRay at [address] [place] [address] Provider, Scanning Social History Tobacco Use Types [...] Lab [facility] [place] [address] Arrived documented as of this encounter Procedures [...]
--- OUTSIDE RECORDS SUMMARY | 2024-04-07 11:03 | XMS_ITS | Encounter Summary ---
Author Organization [facility] [place] [address] Care Team Providers Care Printing Film Stripper Name Role Phone Lolly Oliveira MD Primary Care Provider [phone] Reason for Visit * Reason Comments Skin Check Encounter Details Date Type Department Care Team (Late st Contact Info) Description 11/23/2014 10:00 AM EDT Office Visit Dermatology at [address] [address] Clay Ramírez MD [address] [facility] [place] [address] Dermatofibroma; Nevus; Solar lentigo Discharge Disposition: Home [facility] Non-Invasive [place] [address] Arrived documented as of this encounter Visit Diagnoses Diagnosis Dermatofibroma Benign neoplasm of skin, site unspecified Nevus Benign neoplasm of skin, site unspecified Solar lentigo Other dyschromia documented in this encounter Care Teams Printing Film Stripper Relationship Specialty Start Date End Date Lolly Oliveira MD [address] [place] [address] PCP - General 07/17/13 documented as of this encounter
--- OUTSIDE RECORDS SUMMARY | 2024-04-07 11:03 | XMS_ITS | Encounter Summary ---
Author Organization [facility] [place] [address] Care Team Providers Care Retirement Actuary Name Role Phone Lolly Oliveira MD Primary Care Provider [phone] Encounter Details Date Type Department Care Team (Latest Contact Info) Description 07/26/2013 9:45 AM EDT - 07/26/2013 11:59 PM EDT Hospital [place] [address] Mammographic microcalcification Social History Tobacco Use Types [...] Hospital Encounter Non-[place] [address] Arrived documented as of this encounter Procedures [...] microcalcification documented in this encounter Care Teams Retirement Actuary Relationship Specialty Start Date End Date Lolly Oliveira MD [address] [place] [address] PCP - General 07/17/13 documented as of this encounter
--- OUTSIDE RECORDS SUMMARY | 2024-04-07 11:03 | XMS_ITS | Encounter Summary ---
Author Organization [facility] [place] [address] Care Team Providers Care Shoe Singer Name Role Phone Lolly Oliveira MD Primary Care Provider [phone] Encounter Details Date Type Department Care Team (Late st Contact Info) Description 04/01/2021 3:30 PM EST Office Visit Dermatology at [address] [phone] Clay Ramírez MD [address] [address] [place] [address] Psoriasis, guttate Social History Tobacco Use Types [...] Hospital Encounter Non-Invasive [place] [address] Arrived documented as of this encounter Visit Diagnoses Diagnosis Psoriasis, guttate Other psoriasis documented in this encounter Care Teams Shoe Singer Relationship Specialty Start Date End Date Lolly Oliveira MD [address] [place] [address] PCP - General 07/17/13 documented as of this encounter
--- OUTSIDE RECORDS SUMMARY | 2024-04-07 11:03 | XMS_ITS | Encounter Summary ---
Author Organization [facility] [place] [address] Care Team Providers Care Machine Fastener Name Role Phone Lolly Oliveira MD Primary Care Provider [phone] Reason for Visit * Reason Comments Follow-up Encounter Details Date Type Department Care Team (Late st Contact Info) Description 06/06/2021 8:45 AM EDT Office Visit Dermatology at [address] [address] Clay Ramírez MD [address] [facility], [place] [address] Psoriasis, guttate Social History Tobacco Use Types [...] AM EST Hospital Encounter Non-[place] [phone] Arrived documented as of this encounter Visit Diagnoses Diagnosis Psoriasis, guttate Other psoriasis documented in this encounter Care Teams Machine Fastener Relationship Specialty Start Date End Date Lolly Oliveira MD [address] [place] [address] PCP - General 07/17/13 documented as of this encounter
--- OUTSIDE RECORDS SUMMARY | 2024-04-07 11:03 | XMS_ITS | Encounter Summary ---
Author Organization [facility] [place] [address] Care Team Providers Care Board Member Name Role Phone Lolly Oliveira MD Primary Care Provider [phone] Encounter Details Date Type Department Care Team (Late Contact Info) Description 01/14/2022 Telephone Dermatology at [address] [address] Nora Meredith LPN Social [...] Hospital Encounter Non[place] [address] Arrived documented as of this encounter Visit Diagnoses Not on filedocumented in this encounter Care Teams Board Member Relationship Specialty Start Date End Date Lolly Oliveira MD [address] [place] [address] PCP - General 07/17/13 documented as of this encounter
--- OUTSIDE RECORDS SUMMARY | 2024-04-07 11:03 | XMS_ITS | Encounter Summary ---
Author Organization [facility] [place] [address] Care Team Providers Care Certified Pedorthotist Name Role Phone Lolly Oliveira MD Primary Care Provider [phone] Reason for Visit * Reason Comments Follow-up Encounter Details Date Type Department Care Team (Late st Contact Info) Description 07/02/2022 8:00 AM EDT Office Visit Dermatology at [address] [phone] Clay Ramírez MD [address] [facility] [place] [address] Psoriasis, guttate Social History Tobacco Use Types [...] [facility] Hospital Encounter [place] [address] Arrived documented as of this encounter Visit Diagnoses Diagnosis Psoriasis, guttate Other psoriasis documented in this encounter Care Teams Certified Pedorthotist Relationship Specialty Start Date End Date Lolly Oliveira MD [address] [place] [address] PCP - General 07/17/13 documented as of this encounter
--- OUTSIDE RECORDS SUMMARY | 2024-04-07 11:03 | XMS_ITS | Encounter Summary ---
Author Organization [facility] [place] [address] Care Team Providers Care Bridge Attacher Name Role Phone Lolly Oliveira MD Primary Care Provider [phone] Encounter Details Date Type Department Care Team (Latest Contact Info) Description 07/17/2013 8:40 AM EDT - 07/17/2013 11:59 PM EDT Hospital Encounter XRay at [address] [place] [address] [address], [facility] Discharge Disposition: Home Social [...] Encounter Non-Invasive [place] [address] Arrived documented as of this encounter Visit Diagnoses Not on filedocumented in this encounter Care Teams Bridge Attacher Relationship Specialty Start Date End Date Lolly Oliveira MD [address] [place] [address] PCP - General 07/17/13 documented as of this encounter
--- OUTSIDE RECORDS SUMMARY | 2024-04-07 11:03 | XMS_ITS | Encounter Summary ---
Author Organization [place] [address] Care Team Providers Care Mine Wedge Sawyer Name Role Phone Lolly Oliveira MD Primary Care Provider [phone] Encounter Details Date Type Department Care Team (Late st Contact Info) Description 10/09/2021 Telephone Dermatology at [address] [address] Nora Meredith LPN Social History [...] [facility] Encounter Non[place] [address] Arrived documented as of this encounter Visit Diagnoses Not on filedocumented in this encounter Care Teams Mine Wedge Sawyer Relationship Specialty Start Date End Date Lolly Oliveira MD [address] [place] [address] PCP - General 07/17/13 documented as of this encounter
--- OUTSIDE RECORDS SUMMARY | 2024-04-07 11:03 | XMS_ITS | Encounter Summary ---
[place] [address] Care Team Providers Care Game Designer/Creative Director Name Role Phone Lolly Oliveira MD Primary Care Provider [phone] Encounter Details Date Type Department Care Team [...] on filedocumented in this encounter Care Teams Game Designer/Creative Director Relationship Specialty Start Date End Date Lolly Oliveira MD [address] [place] [address] PCP - General 07/17/13 documented as of this encounter
--- OUTSIDE RECORDS SUMMARY | 2024-04-07 11:03 | XMS_ITS | Encounter Summary ---
Author Organization [facility] [place] [address] Care Team Providers Care Senior Warehouse Clerk Name Role Phone Lolly Oliveira MD Primary Care Provider [phone] Encounter Details Date Type Department Care Team (Late st Contact Info) Description 07/26/2013 [place] [address] Eleno Christian MD Social History [...] [facility] Hospital Encounter Non-[place] [address] Arrived documented as of this encounter Visit Diagnoses Not on filedocumented in this encounter Care Teams Senior Warehouse Clerk Relationship Specialty Start Date End Date Lolly Oliveira MD [address] [place] [address] PCP - General 07/17/13 documented as of this encounter
--- OUTSIDE RECORDS SUMMARY | 2024-04-07 11:03 | XMS_ITS | Encounter Summary ---
Author Organization [facility] [place] [address] Care Team Providers Care Warehouse Consultant Name Role Phone Lolly Oliveira MD Primary Care Provider [phone] Reason for Visit * Auth/Cert (Routine) Specialty Diagnoses / Procedures Referred By Contac t Referred To Contact Diagnoses Left bundle-branch block, unspecified Other cardiomyopathies Left bundle branch block [I44.7]Nonischemic cardiomyopathy [I42.8] Procedures PRG CATH PLMT LEFT HEART CATH & ARTS W/INJ & ANGIO IMG S&I ELECTROPHYSIOLOGY PROCEDURE Lalit Mcmahon MD [address] [place] [address] [facility] Referral ID Status Reason Start Date Expiration Date Visits Re quested Visits Authorized [id number] 1 1 Encounter Details Date Type Department Care Team (Late st Contact Info) Description 07/23/2022 1:00 PM EDT - 07/23/2022 5:30 PM EDT Surgery [place] [address] Lalit Mcmahon MD [address] [place] [address] ELECTROPHYSIOLOGY PROCEDURE Social History Tobacco Use Types Packs/Day Years Used Date Smoking Tobacco: Never Tobacco Cessation:Counseling Given: Not Answered Alcohol Use Standard Drinks/Week Comments Not Currently 0 (1 standard drink = 0.6 oz pur e alcohol) [facility] Inpatient Questions Answer Date Recorded [...] Luna Mott Patient Age: 71 y.o. Language: Bruneian Race: White Ethnicity: Not nor Admit date: 07/23/2022 Discharge date and time: 07/24/22 Attending Physician: Lalit Mcmahon MD Discharge Physician: Lalit Mcmahon MD Follow-up Recommendations for Providers: - s/p PLUG DRILL OPERATOR-D implant - post implant QRS 130 [...] Solar lentigo Operations/Major Procedures: 07/23/22: [facility] PLUG DRILL OPERATOR-D implant History of Presentation: 71 y.o. female with a history of HFrEF, LBBB, QRS >150, NYHA II who is POD#1 of PLUG DRILL OPERATOR-D implant ([employer]). Hospital Course: Elective admission for PLUG DRILL OPERATOR-D implant Admitted post-implant for pain management, [...] (heart failure with reduced ejection fraction) [I50.20] PLUG DRILL OPERATOR-D implant Admission Condition: good Indication for [...] g Refills: 3 fluticasone propionate 50 mcg/actuation [place], Suspension Commonly known as: Flonase 1 spray [...] incision. Make sure to use a cloth cutting inspector (such as a towel) in between [...] F. The office scheduling phone number is [phone]. ARM MOVEMENT RESTRICTIONS POST-IMPLANT - Do not [...] please call the Cardiac ElectrophysiologyTriage Nurse at [phone], option 3. General Instructions None Discharge References/Attachments [...] incision. Make sure to use a cloth cutting inspector (such as a towel) in between [...] F. The office scheduling phone number is [phone]. ARM MOVEMENT RESTRICTIONS POST-IMPLANT - Do not [...] please call the Cardiac ElectrophysiologyTriage Nurse at [phone], option 3. documented in this encounter Medications [...] with spacer fluticasone propionate (Flonase) 50 mcg/actuation [place], Suspension 1 spray by Each Nare route [...] Cardiac Electrophysiology Post-Implant Device Interrogation Luna Mott [id number] 07/24/2022 History: Luna Mott is a 71 y.o. female with a history of HFrEF, LBBB, QRS >150, NYHA II who is POD#1 of PLUG DRILL OPERATOR-D implant ([employer]). Overall feels well this morning. Ready [...] WOB Neuro- A&Ox3 Device Interrogation: Data ?? Services Host Model # Serial # Generator [employer] [id number] Atrial Lead [employer] [id number] RV Lead [employer] 0672 [id number] LV Lead [employer] [id number] [id number] ?? Diagnostics Pacing Mode: DDD 60-130 Underlying Rhythm: [place] Atrial Episodes: None Ventricular Episodes: None FINAL PROGRAMMING: Pacing: Mode Lower rate (ppm) Upper rate (ppm) ?? DDD 60 130 VF: Rate (bpm) #Antitachycardia pacing First shock energy (J) ?? 200 Quick convert 41 VT: 170 Monitor only Monitor only ? Battery and Leads Impedances (ohms) Sensing (mV) Thresholds HV RA RV LV RA RV LV RA RV LV 73 422 747 1101 (LVa) 7.7 13.1 >25 0.4V @ 0.4 ms 0.4V @ 0.4 ms 0.5 V @ 1.0 ms POD#1 CXR: All leads in nominal positioning Impression: 71 y.o. female who is s/p PLUG DRILL OPERATOR-D implant for LBBB, NYHA II, HFrEF. [...] ([facility]) Fadi Nunez MD 07/24/2022 Pager: [phone] I met with the patient today and [...] agreement. ? Dr. Lalit Mcmahon, electrophysiology attending ([id number]) * Zaria Wright RN - 07/23/2022 8:28 [...] HF, QRS > 150 ms presents for PLUG DRILL OPERATOR-D placement. ROS: Denies recent fevers or [...] 0.9) flush 5 mL 5 mL Intravenous [id number] ramos MD ??? sodium chloride 0.9 % [...] HF, QRS > 150 ms presents for PLUG DRILL OPERATOR-D placement. Backup would be LBBAP lead. Antibiotics: cefazolin Rationales for, intended benefits and potential risk of planned procedures reviewed. The patient indicated understanding and agreement with the plan. Informed consent signed. Procedure checklist completed. Fadi Nunez MD Cardiac Electrophysiology Fellow [facility] Pager [phone] 07/23/2022 I met with the patient today [...] agreement. ? Dr. Lalit Mcmahon, electrophysiology attending ([id number]) documented in this encounter Miscellaneous Notes * Brief Op Note - Lalit Mcmahon MD - 07/23/2022 4:04 PM EDT Brief Operative Note Patient Name: Luna Mott : [id number] MR#: [id number] Case Date: 07/23/2022 Surgeon: Surgeon(s) and Role: [...] AM EST Hospital Encounter Non-Invasive [place] [address] Arrived Scheduled Orders Name Type Priority Associated Diagnoses Orde r Schedule EKG 12 Lead ECG Routine Cardiac resynchronization therapy defibrillator (PLUG DRILL OPERATOR-D) in place One Time for 1 [...] (Bezet) 522 ms MUSE SYSTEM Calculated R [place] 78 degrees MUSE SYSTEM Calculated T [place] -71 degrees MUSE SYSTEM INTERPRETATION AV dual-paced [...] signed by: Kwame Vargas MD, [facility] ([phone]), at 07/24/2022 6:43 AM Narrative 07/24/2022 6:43 [...] in caregiver that requested your imaging first. Electronically signed by: Kwame Vargas MD, [facility]([phone]), at 07/24/2022 6:43 AM Lalit Mcmahon MD IMG DX ORDERABLES * ELECTROPHYSIOLOGY PROCEDURE (07/23/2022 1:11 PM EDT) Anatomical Region Laterality Modality Other Narrative 07/23/2022 4:24 PM EDT Table formatting from the original result was not included. BIVENTRICULAR ICD IMPLANTATION Core Microarchitect: Lalit Mcmahon MD Fellow: Fadi Nunez MD [...] lateral branch of the CS in the ERITREAN view. This branch was cannulated with a [...] the entire procedure. LEAD AND GENERATOR DATA: Services Host Model # Serial # Generator [employer] [id number] Atrial Lead [employer] [id number] [id number] RV Lead [employer] 0672 [id number] LV Lead [employer] [id number] [id number] PACE/SENSE DATA: Sensed wave (mV) Threshold (V) [...] (cGycm2) 300 CONCLUSIONS: Successful implantation of a [employer] biventricular ICD for primary prevention and treatment of symptoms related to congestive heart failure. Follow up in EP clinic in 1-2 months. Procedures performed: new ICD system ( cpt 82255-E7); implant LV lead at time of ICD insertion (cpt 22027) I have read, edited and approve of this report: Lalit Mcmahon MD [facility] Cardiac Electrophysiology 07/23/2022 4:22 PM Procedure Note Lalit Mcmahon MD - 07/23/2022 BIVENTRICULAR ICD IMPLANTATION Core Microarchitect: Lalit Mcmahon MD Fellow: Fadi Nunez MD [...] appropriate lateralbranch of the CS in the ERITREAN view. This branch was cannulated with a [...] in the entireprocedure. LEAD AND GENERATOR DATA: Services Host Model # Serial # Generator [employer] [id number] Atrial Lead [employer] [id number] [id number] RV Lead [employer] 0672 269399 LV Lead [employer] 4674 [id number] PACE/SENSE DATA: Sensed wave (mV) Threshold (V) [...] (cGycm2) 300 CONCLUSIONS: Successful implantation of a [employer] biventricular ICD forprimary prevention and treatment of symptoms related to congestive heartfailure. Follow up in EP clinic in 1-2 months. Procedures performed: new ICD system ( cpt 91583-V8); implant LV lead attime of ICD insertion (cpt 22782) I have read, edited and approve of this report: Lalit Mcmahon MD S Cardiac Electrophysiology 07/23/2022 4:22 PM Lalit Mcmahon MD EP PROCEDURE ORDERAB LES * POCT Glucose (07/23/2022 12:54 PM EDT) [facility] Signature Glucose, POC 83 65 - 199 mg/dL [facility] Comment: Supplemental ranges: <140 mg/dL before meals <180 mg/dL all other times of the day Blood 07/23/2022 12:5 4 PM EDT 07/23/2022 12:54 PM EDT Lalit Mcmahon MD POINT OF CARE TEST O RDERABLES Performing Organization Address City/[facility]/ZIP Co de Phone Number [facility] [place] [address] * EKG 12 Lead (07/23/2022 12:33 PM EDT) Ventricular rate 72 BPM MUSE SYSTEM Atrial Rate 72 BPM MUSE SYSTEM P-R Interval 158 ms MUSE SYSTEM QRS Duration 176 ms MUSE SYSTEM Q-T Interval 458 ms MUSE SYSTEM QTC Calculated (Bezet) 501 ms MUSE SYSTEM Calculated P [place] 34 degrees MUSE SYSTEM Calculated R [place] 12 degrees MUSE SYSTEM Calculated T [place] -173 degrees MUSE SYSTEM INTERPRETATION Normal sinus rhythm Left bundle branch block Abnormal ECG No previous ECGs available Confirmed by MD Salome, Lalit ([id number]) on 07/23/2022 1:19:03 PM MUSE SYSTEM 07/23/2022 12:3 3 PM EDT 07/23/2022 1:19 PM EDT Lalit Mcmahon MD ECG ORDERABLES Performing Organization Address [facility]/ZIP Co de Phone Number MUSE SYSTEM * Differential, Automated (07/23/2022 11:55 AM EDT) Neutrophil % 62.6 % [facility] Neutrophil Absolute 4.14 1.70 - 6.10 x10(3)/[facility] Lymph % 27.0 % [facility] Lymphocytes Abs 1.8 0.9 - 3.2 x10(3)/[facility] LAB[facility] Monocyte % 7.3 % [facility] Monocyte Abs 0.5 0.3 - 0.9 x10(3)/[facility] LAB[facility]AT[facility] Eos % 2.3 % [facility] Eosinophils Abs 0.2 0.0 - 0.4 x10(3)/[facility] LAB[facility]AT[facility] Basophil % 0.6 % [facility] ITAL LABORATORY Baso Absolute 0.0 0.0 - 0.1 x10(3)/[facility] LAB[facility]AT[facility] Immature Gran % 0.20 % UPPER [...] ORDERABLE S [facility] [place] [address] * Hemogram (07/23/2022 11:55 AM EDT) White [...] SYSTEM LABORATORY Platelet 193 145 - 357 x10(3)/[facility] RDW Standard Deviation 45.5 37.0 - 46.0 fL [facility] RDW coefficient of variation 13.2 11.5 - 14.1 % [facility] Mean Platelet Volume 9.5 7.6 - 12.9 fL [facility] NRBC% auto 0.0 % [facility] ITAL LABORATORY NRBC Absolute 0.000 0.000 - 0.000 x10(3)/[facility] Blood 07/23/2022 11:5 5 AM EDT 07/23/2022 12:07 PM EDT Narrative Resulting Agency Comment Spec In Lab Lalit Mcmahon MD HEMATOLOGY ORDERABLE S [facility] [place] [address] * (ABNORMAL) BMP w/fasting Glucose (07/23/2022 11:55 [...] of Diabetes Mellitus, Position Statement from the [place] [employer]. ??Diabetes Care, Volume 33, Supplement 1, Mar 2009 Blood Urea Nitrogen 23(H) 8 - 18 mg/dL [facility] Creatinine 1.07 0.70 - 1.20 mg/dL [facility] Sodium 141 135 [...] questions. Chloride 106 98 - 107 mmol/L [facility] Carbon Dioxide 26 22 - 31 mmol/L [facility] Anion Gap 9 5 - 15 mmol/L [facility] Calcium 9.7 8.5 - 10.5 mg/dL [facility] Est Glomerular Filtration Rate 55(L) >=60 mL/min/1. 73 m?? [facility] Comment: This patient's [...] Mcmahon MD CHEMISTRY ORDERABLES Performing Organization Address [facility] Co de Phone Number [facility] [place] [place] [address] * Prothrombin Time (07/23/2022 11:55 AM EDT) [...] S Performing Organization Address City/[facility] Co de Phone Number [facility] [place] [place] [address] documented in this encounter Visit Diagnoses Diagnosis HFrEF (heart failure with reduced ejection fraction)- Primary Left bundle branch block Other left bundle branch block Nonischemic cardiomyopathy Other primary cardiomyopathies Cardiac resynchronization therapy defibrillator (PLUG DRILL OPERATOR-D) in place Left bundle branch block [...] Routine documented in this encounter Care Teams Warehouse Consultant Relationship Specialty Start Date End Date Lolly Oliveira MD [address] [place] [address] PCP - General 07/17/13 documented as of this encounter
--- OUTSIDE RECORDS SUMMARY | 2024-04-07 11:03 | XMS_ITS | Encounter Summary ---
[place] [address] Care Team Providers Care Nylon Machine Operator Name Role Phone Lolly Oliveira MD Primary Care Provider [phone] Encounter Details Date Type Department Care Team (Latest Contact Info) Description 07/26/2013 9:45 AM EDT - 07/26/2013 11:59 PM EDT Hospital [place] [address] Mammographic microcalcification Social History Tobacco Use Types [...] Hospital Encounter Non-[place] [address] Arrived documented as of this encounter Procedures Procedure Name Priority Date/Time Associated Diagnosis Comments SURGICAL PATHOLOGY REPORT Routine 07/26/2013 12:12 PM EDT MAMMO SPECIMEN IMAGING DURING BIOPSY Routine 07/26/2013 11:58 AM EDT Mammographic microcalcification documented in this encounter Results * Surgical Pathology Report (07/26/2013 12:12 PM EDT) Final Diagnosis ? [facility] ? Provider: ?? ELENO CHRISTIAN ?? Pt. Name: ?? JING MOTT ? Acc #: ?[id number] ?Pt. ? Col Date: ?? 07/26/2013 ? [...] fragmented, fibrofatty needle core biopsies. ? [facility] ? Provider: ?? ELENO CHRISTIAN ?? Pt. Name: ?? JING MOTT ? Acc #: ?[id number] ?Pt. ? Col Date: ?? 07/26/2013 ? [...] Performing Organization Address City/State/[facility] Co ia Phone Number [facility] [place] [address] * Mammo Specimen Imaging During Biopsy (07/26/2013 [...] microcalcification documented in this encounter Care Teams Nylon Machine Operator Relationship Specialty Start Date End Date Lolly Oliveira MD [address] [place] [address] PCP - General 07/17/13 documented as of this encounter
--- OUTSIDE RECORDS SUMMARY | 2024-04-07 11:03 | XMS_ITS | Encounter Summary ---
Author Organization [facility] [place] [address] Care Team Providers Care Menswear Salesperson Name Role Phone Lolly Oliveira MD Primary Care Provider [phone] Encounter Details Date Type Department Care Team (Latest Contact Info) Description 07/18/2013 Orders [place] [address] Alia Fraire MD Mammographic microcalcification (Primary Dx) [...] [facility] Hospital Encounter Non-[place] [address] Arrived documented as of this encounter Results [...] are present on specimen digital X-ray. A Dittitrk Eviva-Stereo 13 Cylinder marker clip was placed. [...] calcifications are present on specimendigital X-ray. A Dittitrk Eviva-Stereo 13 Cylinder marker clip was placed. [...] does not layer and, therefore, are not computer help desk representative of milk of calcium. [...] does not layer and, therefore, are not computer help desk representative of milk of calcium. Again, these have an amorphous andpunctate appearance and remain indeterminate. Stereotactic guided biopsy isrecommended. Alia Fraire MD IMG MAMMO ORDERABLES documented in this encounter Visit Diagnoses Diagnosis Mammographic microcalcification- Primary Mammographic microcalcification Mammographic microcalcification Mammographic microcalcification Mammographic microcalcification documented in this encounter Care Teams Menswear Salesperson Relationship Specialty Start Date End Date Lolly Oliveira MD [address] [place] [address] PCP - General 07/17/13 documented as of this encounter
--- OUTSIDE RECORDS SUMMARY | 2024-04-07 11:03 | XMS_ITS | Encounter Summary ---
Author Organization [facility] [place] [address] Care Team Providers Care Plate Setter Name Role Phone Lolly Oliveira MD Primary Care Provider [phone] Encounter Details Date Type Department Care Team (Latest Contact Info) Description 07/26/2013 9:44 AM EDT - 07/26/2013 11:59 PM EDT Hospital [place] [address] CLINIC, Lolly So MD [address] [place], [place] [id number] Mammographic microcalcification Discharge Disposition: Home Social History [...] AM EST Hospital Encounter Non-[place] [address] Arrived documented as of this encounter Procedures [...] are present on specimen digital X-ray. A [employer]-Stereo 13 Cylinder marker clip was placed. Cranio-caudal [...] mLs documented in this encounter Care Teams Plate Setter Relationship Specialty Start Date End Date Lolly Oliveira MD [address] [place] [address] PCP - General 07/17/13 documented as of this encounter
--- OUTSIDE RECORDS SUMMARY | 2024-04-07 11:03 | XMS_ITS | Encounter Summary ---
Author Organization [facility] [place] [address] Care Team Providers Care Circular Sawyer Helper Name Role Phone Lolly Oliveira MD Primary Care Provider [phone] Encounter Details Date Type Department Care Team (Late st Contact Info) Description 06/29/2011 [place] [address] Eleno Christian MD Social History Tobacco Use [...] [facility] Hospital Encounter Non-[place] [address] Arrived documented as of this encounter Procedures [...] on filedocumented in this encounter Care Teams Circular Sawyer Helper Relationship Specialty Start Date End Date Lolly Oliveira MD [address] [place] [address] PCP - General 07/17/13 documented as of this encounter
--- OUTSIDE RECORDS SUMMARY | 2024-04-07 11:03 | XMS_ITS | Encounter Summary ---
Author Organization [facility] [place] [address] Care Team Providers Care Manager Employee Benefits Name Role Phone Lolly Oliveira MD Primary Care Provider [phone] Reason for Visit * Reason Onset Date Comments Post Procedure Call 07/30/2022 Encounter Details Date Type Department Care Team (Late st Contact Info) Description 07/30/2022 Notes Only Cardiology at [address] [address] Rosenda Sutton, RN Post Procedure Call Social [...] 07/30/2022 9:59 AM EDTSummary: Post Procedure Call: RN MENTAL HEALTH implant EP RN Post-Procedure Note: Date of [...] Note: Follow-up Recommendations for Providers: - s/p RN MENTAL HEALTH-D implant - post implant QRS 130 ms - reviewed post-implant instructions - no medication changes - Follow up in device clinic for wound/device check in ~10 days??([facility]) Wound Care: -Wound will heal in [...] [facility] Hospital Encounter Non[place] [address] Arrived documented as of this encounter Visit Diagnoses Not on filedocumented in this encounter Care Teams Manager Employee Benefits Relationship Specialty Start Date End Date Lolly Oliveira MD [address] [place] [address] PCP - General 07/17/13 documented as of this encounter
--- OUTSIDE RECORDS SUMMARY | 2024-04-07 11:03 | XMS_ITS | Encounter Summary ---
[place] [address] Care Team Providers Care Communications Agent Name Role Phone Lolly Oliveira MD Primary Care Provider [phone] Encounter Details Date Type Department Care Team [...] AM EST Hospital Encounter Non-[place] [address] Arrived documented as of this encounter Visit Diagnoses Not on filedocumented in this encounter Care Teams Communications Agent Relationship Specialty Start Date End Date Lolly Oliveira MD [address] [place] [address] PCP - General 07/17/13 documented as of this encounter
--- OUTSIDE RECORDS SUMMARY | 2024-04-07 11:03 | XMS_ITS | Encounter Summary ---
Author Organization [facility] [address] Care Team Providers Care Installer Metal Flooring Name Role Phone Lolly Oliveira MD Primary Care Provider [phone] Reason for Visit * Reason Onset Date Comments Other 07/24/2022 Implanted Cardia c Device Teaching/Education Encounter Details Date Type Department Care Team (Late st Contact Info) Description 07/24/2022 Notes Only Cardiology at [address] [phone] Letha Arroyo Other (Implanted Cardiac Device Teaching/Education) [...] to call the Cardiac Device Clinic at [phone] with any questions. Plan: Post op check: [...] [facility] Hospital Encounter Non-Invasive [place] [address] Arrived documented as of this encounter Visit Diagnoses Not on filedocumented in this encounter Care Teams Installer Metal Flooring Relationship Specialty Start Date End Date Lolly Oliveira MD [address] [place] [address] PCP - General 07/17/13 documented as of this encounter
--- OUTSIDE RECORDS SUMMARY | 2024-04-07 11:03 | XMS_ITS | Encounter Summary ---
Author Organization Formerly [facility] [place] [address] Care Team Providers Care Revenue Accounting Manager Name Role Phone Lolly Oliveira MD Primary Care Provider [phone] Reason for Referral * Diagnostic Test (Routine) - Closed Specialty Diagnoses / Procedures Referred By Contac t Referred To Contact Radiology Diagnoses Left bundle branch block Nonischemic cardiomyopathy Procedures MRI Cardiac Morphology Function With Flow Velocity Quantification [facility] Contrast MRI Cardiac Morphology Function wwo Contrast Lalit Mcmahon MD [facility] [place] [address] [place] [address] Referral ID Status Reason Start Date Expiration Date V isits Requested Visits Authorized [id number] Closed Specialty Service Requested 05/06/2022 11/07/2023 2 1 Reason for Visit * Diagnostic Test (Routine) - Closed Specialty Diagnoses / Procedures Referred By Contac t Referred To Contact Radiology Diagnoses Left bundle branch block Nonischemic cardiomyopathy Procedures MRI Cardiac Morphology Function With Flow Velocity Quantification o Contrast MRI Cardiac Morphology Function wwo Contrast Lalit Mcmahon MD [facility] [place] [address] [place] [address] Referral ID Status Reason Start Date Expiration Date V isits Requested Visits Authorized [id number] Closed Specialty Service Requested 05/06/2022 11/07/2023 2 1 Encounter Details Date Type Department Care Team (Latest Contact Info) Description 07/14/2022 9:08 AM EDT Hospital Encounter MRI at [facility] [place] [phone] Lalit Mcmahon MD [facility] [place] [address] Left bundle branch block; Nonischemic cardiomyopathy Discharge [...] spacer fluticasone propionate (Flonase) 50 mcg/actuation [place], Suspension 1 spray by Each Nare route [...] Lyle El [facility] [address] Female [phone] (home) No relevant phone numbers on file. Lolly Oliveira MD None Allergies Allergen Reactions ??? Sulfa (Sulfonamide Antibiotics) Date/Time of call: July 07, 2022/11:03 AM/ PREVIOUS MRI SCAN? HEIGHT: WEIGHT: SCHEDULED SCAN: MRI CARDIAC MORPHOLOGY FUNCTION WITH FLOW VELOCITY QUANTIFICATION WWO CONTRAST [[id number]] Order Questions Answers Where will study be performed? [facility] Radiology [120] SUBJECTIVE: Very Claustrophobic CAN YOU [...] ( KV ) You must have a milk truck driver present when you check in. This patient has been informed that they require a milk truck driver to drive them home after this procedure. In the absence of a milk truck driver, IR will not be able to sedate for your scan. Pt verbalized understanding of these instructions during the pre-procedure education via phone. Yes Name of milk truck driver: Daughter Phone number: PRIOR SCAN DATE/S SEDATION TYPE SUCCESSFUL 07/14/22 MRI Cardiac Morphology Function with Flow Velocity Quantification wwo Contrast Ativan 1mg x 1 dose Pass Revised 08/03/17 documented in this encounter Plan of Treatment Upcoming Encounters Date Type Department Care Team (Late st Contact Info) Description 04/15/2024 10:00 AM [facility] Hospital Encounter Non[place] [address] Arrived documented as of this encounter Procedures [...] have questions please contact the health healthcare representative that requested your imaging first. ? Electronically signed by: Greyson Herron MD, [facility] ([phone]), at 07/15/2022 9:53 AM Narrative 07/15/2022 9:53 [...] who have questions please contactthe health healthcare representative that requested your imaging first. Lalit [...] mg documented in this encounter Care Teams Revenue Accounting Manager Relationship Specialty Start Date End Date Lolly Oliveira MD [address] [place] [address] PCP - General 07/17/13 documented as of this encounter
--- OUTSIDE RECORDS SUMMARY | 2024-04-07 11:03 | XMS_ITS | Encounter Summary ---
Author Organization [facility] [place] [address] Care Team Providers Care Weigh Tank Operator Name Role Phone Lolly Oliveira MD Primary Care Provider [phone] Reason for Visit * Reason Onset Date Comments Pre Procedure Call 07/01/2022 Encounter Details Date Type Department Care Team (Late st Contact Info) Description 07/01/2022 Telephone Cardiology at [address] [phone] Rosenda Sutton RN Pre Procedure Call Social History Tobacco Use Types Packs/Day Years Used Date Smoking Tobacco: Never Sex and Gender Information Value Date Recorded Sex Assigned at Not on file Gender Identity Not on file Sexual Orientation Not on file documented as of this encounter Miscellaneous Notes * Telephone Encounter - Rosenda Sutton RN - 07/01/2022 9:30 AM EDTSummary: Pre Procedure Call: HOOP FLARING MACHINE OPERATOR HELPER implant EP ADULT HEALTH CLINICAL NURSE SPECIALIST COORDINATION CHECKLIST Patient Name: Luna Mott Patient Performing Examining Officer: Lalit Mcmahon Referring Provider: Lolly Oliveira Date of Procedure: 07/23/22 Arrival Time/ Case Time: 12:00 pm / 1:00 pm Check In Location: Transcriber Desk 4W Date Patient was Called: 07/01/22 Procedure: HOOP FLARING MACHINE OPERATOR HELPER Company: [employer] Type: HOOP FLARING MACHINE OPERATOR HELPER-D Laterality: LEFT Orders: Yes Lab Orders: Yes [...] overnight , understands that they will need operator and truck driver on day of discharge Notified pt that Goff catheter may be placed on day of procedure depending on type & duration of case. documented in this encounter Plan of Treatment Upcoming Encounters Date Type Department Care Team (Late st Contact Info) Description 04/15/2024 10:00 AM [facility] Hospital Encounter [place] [address] Arrived documented as of this encounter Visit Diagnoses Not on filedocumented in this encounter Care Teams Weigh Tank Operator Relationship Specialty Start Date End Date Lolly Oliveira MD [address] [place] [address] PCP - General 07/17/13 documented as of this encounter
--- OUTSIDE RECORDS SUMMARY | 2024-04-07 11:03 | XMS_ITS | Encounter Summary ---
[place] [address] Care Team Providers Care Aircraft Structural Design Engineer Name Role Phone Lolly Oliveira [...] EST Hospital Encounter Non-Invasive [place] [address] Arrived documented as of this encounter Visit Diagnoses Not on filedocumented in this encounter Care Teams Aircraft Structural Design Engineer Relationship Specialty Start Date End Date Lolly Oliveira MD [address] [place] [address] PCP - General 07/17/13 documented as of this encounter
--- OUTSIDE RECORDS SUMMARY | 2024-04-07 11:03 | XMS_ITS | Encounter Summary ---
Author Organization Formerly [facility] Address [facility] [place] [address] Care Team Providers Care Laminating Machine Tender Name Role Phone Lolly Oliveira MD Primary Care Provider [phone] Reason for Visit * Auth/Cert (Routine) Specialty Diagnoses / Procedures Referred By Contac t Referred To Contact Diagnoses Left bundle-branch block, unspecified Other cardiomyopathies Left bundle branch block [I44.7]Nonischemic cardiomyopathy [I42.8] Procedures PRG CATH PLMT LEFT HEART CATH & ARTS W/INJ & ANGIO IMG S&I ELECTROPHYSIOLOGY PROCEDURE Lalit Mcmahon MD [facility] [address] [facility] Referral ID Status Reason Start Date Expiration Date Visits Re quested Visits Authorized [id number] 1 1 Encounter Details Date Type Department Care Team (Late st Contact Info) Description 07/23/2022 1:08 PM EDT Anesthesia Event [place] [address] Monae Gonzalez MD [facility] [place] [address] Maria Elena Snyder CRNA [facility] [place] [address] Anesthesia Record Procedure Summary Procedure Name Responsible [...] 1307; median cubital vein (antecubital fossa), right; zubi-flp-qwdojs catheter system; Anatomical Landmarks; 20 gauge; 07/24/22; [...] 1343; metacarpal vein (top of hand), left; ewnv-tkh-azdica catheter system; Anatomical Landmarks; US Not Used; [...] Date: 07/23/22 Room / Location: [facility] ROOM [facility] / [facility] EP [facility]S Anesthesia Start: 1308 Anesthesia Stop: 1633 Procedure: ELECTROPHYSIOLOGY PROCEDURE (Left) Diagnosis: Left bundle branch block Nonischemic cardiomyopathy (Left bundle branch block [I44.7]Nonischemic cardiomyopathy [I42.8]) Providers: Lalit Mcmahon MD Responsible Provider: Monae Gonzalez MD Anesthesia Type: general ASA Status: 4 All Anesthesia Providers: Anesthesiologist: Monae Gonzalez MD; Dominique Sen MD HEALTHCARE ASSOCIATE: Maria Elena Snyder CRNA Vitals Value [...] and Nonischemic CM (EF 15-20%)who presents for TRANSMISSION AND PROTECTION ENGINEER-D. No prior anesthetic records. Pt states [...] daughter/son and patient who. Plan discussed with HEALTHCARE ASSOCIATE. Anesthesia Screening documented in this encounter Plan of Treatment Upcoming Encounters Date Type Department Care Team (Late st Contact Info) Description 04/15/2024 10:00 AM [facility] Hospital Encounter [place] [address] Arrived documented as of this [...] mg documented in this encounter Care Teams Laminating Machine Tender Relationship Specialty Start Date End Date Lolly Oliveira MD [address] [place] [address] PCP - General 07/17/13 documented as of this encounter
--- OUTSIDE RECORDS SUMMARY | 2024-04-07 11:03 | XMS_ITS | Encounter Summary ---
Author Organization [facility] [place] [address] Care Team Providers Care Disability Services Coordinator Name Role Phone Lolly Oliveira MD Primary Care Provider [phone] Encounter Details Date Type Department Care Team (Latest Contact Info) Description 10/23/2022 10:00 AM EDT - 10/23/2022 11:59 PM EDT Hospital Encounter Non-Invasive [place] [address] Discharge Disposition: Home Social History Tobacco Use [...] with spacer fluticasone propionate (Flonase) 50 mcg/actuation [place], Suspension 1 spray by Each Nare route [...] CARE SERVICES Hospital Encounter Non-Invasive [place] [address] Arrived documented as of this [...] filedocumented in this encounter Care Teams Disability Services Coordinator Relationship Specialty Start Date End Date Lolly Oliveira MD [address] [place] [address] PCP - General 07/17/13 documented as of this encounter
--- OUTSIDE RECORDS SUMMARY | 2024-04-07 11:03 | XMS_ITS | Encounter Summary ---
Author Organization [facility] [place] [address] Care Team Providers Care High Frequency Mill Operator Name Role Phone Lolly Oliveira MD Primary Care Provider [phone] Reason for Referral * Diagnostic Test (Routine) - Closed Specialty Diagnoses / Procedures Referred By Contac t Referred To Contact Radiology Diagnoses Left bundle branch block Nonischemic cardiomyopathy Procedures MRI Cardiac Morphology Function With Flow Velocity Quantification wwo Contrast MRI Cardiac Morphology Function wwo Contrast Lalit Mcmahon MD [facility] [place] [address] [place] [address] Referral ID Status Reason Start Date Expiration Date V isits Requested Visits Authorized [id number] Closed Specialty Service Requested 05/06/2022 11/07/2023 2 1 Encounter Details Date Type Department Care Team (Late st Contact Info) Description 05/06/2022 Orders Only Cardiology at [address] [address] Lalit Mcmahon MD [facility] [place] [address] Left bundle branch block; Nonischemic cardiomyopathy Social [...] Hospital Encounter Non-[place] [address] Arrived documented as of this encounter Results [...] have questions please contact the health director career that requested your imaging first. ? Narrative [...] who have questions please contactthe health director career that requested your imaging first. Lalit Mcmahon MD IMG MRI ORDERABLES documented in this encounter Visit Diagnoses Diagnosis Left bundle branch block Other left bundle branch block Nonischemic cardiomyopathy Other primary cardiomyopathies Left bundle branch block Other left bundle branch block Nonischemic cardiomyopathy Other primary cardiomyopathies documented in this encounter Care Teams High Frequency Mill Operator Relationship Specialty Start Date End Date Lolly Oliveira MD [address] [place] [address] PCP - General 07/17/13 documented as of this encounter
--- OUTSIDE RECORDS SUMMARY | 2024-04-07 11:03 | XMS_ITS | Encounter Summary ---
Author Organization [facility] [place] [address] Care Team Providers Care Senior Java Architect Name Role Phone Unavailable Primary Care Provider Unavailabl e Encounter Details Date Type Department Care Team (Late st Contact Info) Description 07/04/2012 [place] [address] Eleno Christian MD Social History Tobacco Use [...] EST Hospital Encounter Non-Invasive [place] [address] Arrived documented as of this encounter Procedures [...]
--- OUTSIDE RECORDS SUMMARY | 2024-04-07 11:03 | XMS_ITS | Encounter Summary ---
Author Organization [facility] [place] [address] Care Team Providers Care Terrazzo Mechanic Helper Name Role Phone Lolly Oliveira MD Primary Care Provider [phone] Reason for Referral * Consultation (Routine) - Closed Specialty Diagnoses / Procedures Referred By Contact Referred To Contact Electrophysiology / Cardiology Diagnoses Left bundle branch block Cardiomyopathy, unspecified type AT MINIMUM PT NEEDS CONSIDERATION FOR DEFIBRILLATOR, ALSO CANDIDATE FOR RESYNCHRONIZATION THERAPY HER QRS IS >0.16 Lolly Oliveira MD [address] [place] [address] [facility] Cardiology [address] [place] [phone] Referral ID Status Reason Start Date Expiration Date V isits Requested Visits Authorized [id number] Closed Consult, Test & Treat PCP Updated and/or Approved 04/30/2022 04/30/2023 6 6 Encounter Details Date Type Department Care Team (Latest Contact Info) Description 04/30/2022 Transcribe Orders eDH Incoming Referrals [phone] Lolly Oliveira MD [address] [place], [place] [id number] Left bundle branch block; Cardiomyopathy, unspecified type [...] AM EST Hospital Encounter [place] [address] Arrived Scheduled Referrals Name Type Priority Associated Diagnoses Orde r Schedule Referral to Cardiology Outpatient Referral Routine Left bundle branch block Cardiomyopathy, Unspecified Type Ordered: 04/30/2022 documented as of this encounter Visit Diagnoses Diagnosis Left bundle branch block Other left bundle branch block Cardiomyopathy, unspecified type documented in this encounter Care Teams Terrazzo Mechanic Helper Relationship Specialty Start Date End Date Lolly Oliveira MD [address] [place] [address] PCP - General 07/17/13 documented as of this encounter
--- OUTSIDE RECORDS SUMMARY | 2024-04-07 11:03 | XMS_ITS | Encounter Summary ---
Author Organization [facility] [place] [address] Care Team Providers Care Freight Flow Sales Leader Name Role Phone Lolly Oliveira MD Primary Care Provider [phone] Reason for Visit * Reason Comments Follow-up Encounter Details Date Type Department Care Team (Late st Contact Info) Description 05/21/2022 8:00 AM EDT Office Visit Dermatology at [address] [phone] Clay Ramírez MD [address] [facility] [place] [address] Psoriasis, guttate Social History Tobacco Use Types [...] [facility] Hospital Encounter Non-[place]vasive [place] [address] Arrived documented as of this encounter Visit Diagnoses Diagnosis Psoriasis, guttate Other psoriasis documented in this encounter Care Teams Freight Flow Sales Leader Relationship Specialty Start Date End Date Lolly Oliveira MD [address] [place] [address] PCP - General 07/17/13 documented as of this encounter
--- OUTSIDE RECORDS SUMMARY | 2024-04-07 11:03 | XMS_ITS | Encounter Summary ---
[place] [address] Care Team Providers Care Color Stripper Name Role Phone Lolly Oliveira MD Primary Care Provider [phone] Encounter Details Date Type Department Care Team (Late st Contact Info) Description 07/17/2013 Orders [place] [address] Lolly Oliveira MD [address] [place], [place] [address] Social History Tobacco Use Types Packs/Day Years [...] EST Hospital Encounter Non-Invasive [place] [address] Arrived documented as of this encounter Procedures [...] (PERFORMED ON 07/06/13 AND 07/14/13) FROM [facility] DATED 07/17/13: ?? DIAGNOSTIC IMAGING SUMMARY: [...] reviewed by the attending Procedure Note Alia Friare MD - 07/17/2013 INTERPRETATION OF OUTSIDE MAMMOGRAMS (PERFORMED ON 07/06/13 AND 07/14/13) [facility] DATED 07/17/13: DIAGNOSTIC IMAGING SUMMARY: RIGHT [...] filedocumented in this encounter Care Teams Color Stripper Relationship Specialty Start Date End Date Lolly Oliveira MD [address] [place] [address] PCP - General 07/17/13 documented as of this encounter
--- OUTSIDE RECORDS SUMMARY | 2024-04-07 11:03 | XMS_ITS | Encounter Summary ---
Author Organization [facility] Address [facility] [place] [address] Care Team Providers Care Executive Cyber Leader Name Role Phone Lolly Oliveira MD Primary Care Provider [phone] Encounter Details Date Type Department Care Team (Late st Contact Info) Description 07/16/2022 Telephone Cardiology at [address] [phone] Lalit Mcmahon MD [facility] [place] [address] Social History Tobacco Use Types Packs/Day Years [...] her nonischemic cardiomyopathy. She is scheduled for PUBLIC WELFARE WORKER-D implantation next week and looks forward to the procedure. We will see each other next week. Lalit Mcmahon MD [facility] Cardiac Electrophysiology 07/16/2022 8:52 AM documented in this encounter Plan of Treatment Upcoming Encounters Date Type Department Care Team (Late st Contact Info) Description 04/15/2024 10:00 AM EST Hospital Encounter Non-[place] [address] Arrived documented as of this encounter Visit Diagnoses Not on filedocumented in this encounter Care Teams Executive Cyber Leader Relationship Specialty Start Date End Date Lolly Oliveira MD [address] [place] [address] PCP - General 07/17/13 documented as of this encounter
--- OUTSIDE RECORDS SUMMARY | 2024-04-07 11:03 | XMS_ITS | Encounter Summary ---
Author Organization [facility] [place] [address] Care Team Providers Care Behavioral Scientist Name Role Phone Lolly Oliviera MD Primary Care Provider [phone] Reason for Visit * Diagnostic Test (Routine) - Closed Specialty Diagnoses / Procedures Referred By Contac t Referred To Contact Radiology Diagnoses Left bundle branch block Nonischemic cardiomyopathy Procedures MRI Cardiac Morphology Function With Flow Velocity Quantification wwo Contrast MRI Cardiac Morphology Function wwo Contrast Lalit Mcmahon MD [facility] [place] [address] [facility] [place] [address] Referral ID Status Reason Start Date Expiration Date V isits Requested Visits Authorized [id number] Closed Specialty Service Requested 05/06/2022 11/07/2023 2 1 Encounter Details Date Type Department Care Team (Latest Contact Info) Description 07/14/2022 9:09 AM EDT - 07/14/2022 11:59 PM EDT Hospital [place] [address] Lalit Mcmahon MD [facility] [place] [address] Discharge Disposition: Home Social History Tobacco Use [...] AM EST Hospital Encounter Non[place] [address] Arrived documented as of this [...] mLs documented in this encounter Care Teams Behavioral Scientist Relationship Specialty Start Date End Date Lolly Oliveira MD [address] [place] [address] PCP - General 07/17/13 documented as of this encounter
--- OUTSIDE RECORDS SUMMARY | 2024-04-07 11:03 | XMS_ITS | Encounter Summary ---
[place] [address] Care Team Providers Care Visual Supervisor Name Role Phone Lolly Oliveira MD Primary Care Provider [phone] Encounter Details Date Type Department Care Team [...] AM EST Hospital Encounter [place] [address] Arrived documented as of this encounter Visit Diagnoses Not on filedocumented in this encounter Care Teams Visual Supervisor Relationship Specialty Start Date End Date Lolly Oliveira MD [address] [place] [address] PCP - General 07/17/13 documented as of this encounter
[2024-04-07 11:26] VITALS: BP 132/65; PULSE 69
== END 2024-04-07 23:59 | disposition home or self-care (01) ==
LOC: CR 10:59
PROVIDERS: PCP Family Medicine; Visit Provider Internal Medicine Cardiovascular Disease
DX: R69 Illness, unspecified (principal)

== ENCOUNTER 2024-05-05 11:06 | Outpatient (RCR) | payer SELFPAY ==
--- OUTSIDE RECORDS SUMMARY | 2024-04-12 11:11 | XMS_ITS | Encounter Summary ---
Author Organization [facility] Address [address] [place] [address] Care Team Providers Care Councilman Name Role Phone Lolly Oliveira MD Primary Care Provider [phone] Encounter Details Date Type Department Care Team (Late st Contact Info) Description 04/17/2005 Results Only [facility] - Telephone conversion [address] [place] [address] Lolly Oliveira MD [address] [place], [place] [address] Social History Tobacco Use Types [...] ? JING ALVARENGA ? Accession #: ? [id number] : ? 1950 (Age: 54) ??F ?Collect Date: ? 04/17/2005 Location: ? [facility] ? Receive Date: ? 04/21/2005 Provider: ?LOLLY OLIVEIRA MD Copy to: ? Specimen/Source: ?ThinPrep Pap Test, Cervix/Endocervix, processed on [place] ThinPrep Imaging System, with manual evaluation Last [...] Final Resu lt [facility] [address] [place] [address] documented in this encounter Visit Diagnoses Not on filedocumented in this encounter Care Teams Councilman Relationship Specialty Start Date End Date Lolly Oliveira MD [address] [place] [address] PCP - General 11/13/08 documented as of this encounter
--- OUTSIDE RECORDS SUMMARY | 2024-04-12 11:11 | XMS_ITS | Encounter Summary ---
Author Organization [facility] [place] [address] Care Team Providers Care Principal Architectural Firm Name Role Phone Lolly Oliveira MD Primary Care Provider [phone] Encounter Details Date Type Department Care Team (Late st Contact Info) Description 05/18/2023 Telephone Dermatology at [address] [address] Nora Meredith LPN Social History [...] [facility] Hospital Encounter Non-Invasive [place] [address] Arrived documented as of this encounter Visit Diagnoses Not on filedocumented in this encounter Care Teams Principal Architectural Firm Relationship Specialty Start Date End Date Lolly Oliveira MD [address] [place] [address] PCP - General 07/17/13 documented as of this encounter
--- OUTSIDE RECORDS SUMMARY | 2024-04-12 11:11 | XMS_ITS | Encounter Summary ---
Author Organization [facility] Address [facility] [place] [address] Care Team Providers Care Driver Guide Name Role Phone Lolly Oliveira MD Primary Care Provider [phone] Encounter Details Date Type Department Care Team (Late st Contact Info) Description 05/03/2023 Telephone Cardiology at [address] [phone] Lalit Mcmahon MD [facility] [place] [address] Social History Tobacco Use Types Packs/Day Years [...] AM EST Hospital Encounter Non-[place] [address] Arrived documented as of this encounter Visit Diagnoses Not on filedocumented in this encounter Care Teams Driver Guide Relationship Specialty Start Date End Date Lolly Oliveira MD [address] [place] [address] PCP - General 07/17/13 documented as of this encounter
--- OUTSIDE RECORDS SUMMARY | 2024-04-12 11:11 | XMS_ITS | Encounter Summary ---
Author Organization [facility] Address [address] [place] [address] Care Team Providers Care Management Professionals Name Role Phone Lolly Oliveira MD Primary Care Provider [phone] Encounter Details Date Type Department Care Team (Late st Contact Info) Description 02/11/2021 Lab Requisition [facility] Pathology & Laboratory Medicine - [address] [id number] Outr Resulting Lab, Provider Social History Tobacco [...] GENER AL ORDERABLES Final Result [facility] [address] [place] [address] * COVID-19 TESTING (02/11/2021 8:00 EST) COVID-19 rt-PCR Result Negative Negative 02/12/2021 14:17 EST [facility] Comment: This test [...] performed using the med SARS-CoV-2 assay ([employer] on the Med 6800 System Performing Lab Med [address] [facility] Lab 02/12/2021 14:17 EST [facility] Swab 02/11/2021 8:00 EST 02/11/2021 22:22 EST us Provider Outr Resulting Lab MICROBIOLOGY - GENER AL ORDERABLES Final Result [facility] [address] [place] [address] documented in this encounter Visit Diagnoses Not on filedocumented in this encounter Care Teams Management Professionals Relationship Specialty Start Date End Date Lolly Oliveira MD [address] [place] [address] PCP - General 11/13/08 documented as of this encounter
--- OUTSIDE RECORDS SUMMARY | 2024-04-12 11:11 | XMS_ITS | Encounter Summary ---
Author Organization [facility] Address [facility] [address] Care Team Providers Care Salon Receptionist Name Role Phone Lolly Oliveira MD Primary Care Provider [phone] Encounter Details Date Type Department Care Team (Late st Contact Info) Description 01/29/2023 Notes Only Cardiology at [address] [address] Merle Lin PA [facility] [place] [address] Social History Tobacco Use Types Packs/Day Years [...] pdf document Date of transmission: 01/29/2023 Device implementation engineer: BSI Device type: BROKERAGE OFFICE MANAGER-D Presenting rhythm: /RVP/LVP AP 21% Right IN STORE MARKETER 100% Left IN STORE MARKETER: 100% Battery: 10.5 years Heart[employer]ic Index rising in setting of increasing S3 intensity, increasing respiratory rate, increasing night heart rate, and increasing mean heart rate. MICKEY Villa 01/29/2023 9:06 AM documented in this encounter Plan of Treatment Upcoming Encounters Date Type Department Care Team (Late st Contact Info) Description 04/15/2024 10:00 AM EST Hospital Encounter [place] [address] Arrived documented as of this encounter Visit Diagnoses Not on filedocumented in this encounter Care Teams Salon Receptionist Relationship Specialty Start Date End Date Lolly Oliveira MD [address] [place] [address] PCP - General 07/17/13 documented as of this encounter
--- OUTSIDE RECORDS SUMMARY | 2024-04-12 11:11 | XMS_ITS | Encounter Summary ---
Author Organization [facility] [place] [address] Care Team Providers Care Director Of Intercollegiate Athletics Name Role Phone Lolly Oliveira MD Primary Care Provider [phone] Reason for Visit * Reason Onset Date Comments Other 07/24/2022 Implanted Cardia c Device Teaching/Education Encounter Details Date Type Department Care Team (Late st Contact Info) Description 07/24/2022 Notes Only Cardiology at [address] [phone] Letha Arroyo Other (Implanted Cardiac Device Teaching/Education) [...] to call the Cardiac Device Clinic at [phone] with any questions. Plan: Post op check: [...] [facility] Hospital Encounter [place] [address] Arrived documented as of this encounter Visit Diagnoses Not on filedocumented in this encounter Care Teams Director Of Intercollegiate Athletics Relationship Specialty Start Date End Date Lolly Oliveira MD [address] [place] [address] PCP - General 07/17/13 documented as of this encounter
--- OUTSIDE RECORDS SUMMARY | 2024-04-12 11:11 | XMS_ITS | Encounter Summary ---
Author Organization [facility] [place] [address] Care Team Providers Care Bilingual Administrative Assistant Name Role Phone Lolly Oliveira MD Primary Care Provider [phone] Encounter Details Date Type Department Care Team (Latest Contact Info) Description 07/20/2023 10:00 AM EDT - 07/20/2023 11:59 PM EDT Hospital Encounter [place] [phone] Discharge Disposition: Home Social History Tobacco Use [...] AM EST Hospital Encounter Non[place] [address] Arrived documented as of this encounter Procedures [...] filedocumented in this encounter Care Teams Bilingual Administrative Assistant Relationship Specialty Start Date End Date Lolly Oliveira MD [address] [place] [address] PCP - General 07/17/13 documented as of this encounter
--- OUTSIDE RECORDS SUMMARY | 2024-04-12 11:11 | XMS_ITS | Encounter Summary ---
Author Organization [facility] Address [address] [place] [address] Care Team Providers Care Client Manager Large Law Name Role Phone Unavailable Primary Care Provider Unavailabl e Encounter Details Date Type Department Care Team (Late st Contact Info) Description 11/07/2008 Orders Only [facility] Laboratory Services - [facility] ([facility] [address] [place] [address] Kenneth Parker MD [address] [place] [address] Social History Tobacco Use Types Packs/Day Years [...] ? JING ALVARENGA ? Accession #: ? [id number] ? : ? 1950 (Age: 58) ??F [...] ORDERABLES Final Resu lt [facility] BLANCO [address] [place] [address] documented in this encounter Visit Diagnoses Not on filedocumented in this encounter
--- OUTSIDE RECORDS SUMMARY | 2024-04-12 11:11 | XMS_ITS | Encounter Summary ---
Author Organization [facility] Address [facility] [place] [address] Care Team Providers Care Refrigeration Mechanic Name Role Phone Lolly Oliveira MD Primary Care Provider [phone] Reason for Visit * Auth/Cert (Routine) Specialty Diagnoses / Procedures Referred By Contac t Referred To Contact Diagnoses Left bundle-branch block, unspecified Other cardiomyopathies Left bundle branch block [I44.7]Nonischemic cardiomyopathy [I42.8] Procedures PRG CATH PLMT LEFT HEART CATH & ARTS W/INJ & ANGIO IMG S&I ELECTROPHYSIOLOGY PROCEDURE Lalit Mcmahon MD [facility] [place] [address] [facility] Referral ID Status Reason Start Date Expiration Date Visits Re quested Visits Authorized [id number] 1 1 Encounter Details Date Type Department Care Team (Latest Contact Info) Description 07/23/2022 11:39 AM EDT - 07/24/2022 10:23 AM EDT Hospital [place] [phone] Lalit Mcmahon MD [facility] [place] [place] [address] Left bundle branch block; Nonischemic cardiomyopathy; Cardiac resynchronization therapy defibrillator (REPAIR DEPARTMENT MANAGER-D) in place Discharge Disposition: Home Social [...] Luna Mott Patient Age: 71 y.o. Language: South Sudanese Race: White Ethnicity: Not nor Admit date: 07/23/2022 Discharge date and time: 07/24/22 Attending Physician: Lalit Mcmahon MD Discharge Physician: Lalit Mcmahon MD Follow-up Recommendations for Providers: - s/p REPAIR DEPARTMENT MANAGER-D implant - post implant QRS 130 [...] Solar lentigo Operations/Major Procedures: 07/23/22: [facility] REPAIR DEPARTMENT MANAGER-D implant History of Presentation: 71 y.o. female with a history of HFrEF, LBBB, QRS >150, NYHA II who is POD#1 of REPAIR DEPARTMENT MANAGER-D implant ([employer]). Hospital Course: Elective admission for REPAIR DEPARTMENT MANAGER-D implant Admitted post-implant for pain management, [...] (heart failure with reduced ejection fraction) [I50.20] REPAIR DEPARTMENT MANAGER-D implant Admission Condition: good Indication for [...] g Refills: 3 fluticasone propionate 50 mcg/actuation Felicity, Suspension Commonly known as: Flonase 1 spray [...] incision. Make sure to use a cloth shearer (such as a towel) in between the [...] F. The office scheduling phone number is [phone]. ARM MOVEMENT RESTRICTIONS POST-IMPLANT - Do not [...] please call the Cardiac ElectrophysiologyTriage Nurse at [phone], option 3. General Instructions None Discharge References/Attachments [...] incision. Make sure to use a cloth shearer (such as a towel) in between the [...] F. The office scheduling phone number is [phone]. ARM MOVEMENT RESTRICTIONS POST-IMPLANT - Do not [...] please call the Cardiac ElectrophysiologyTriage Nurse at [phone], option 3. documented in this encounter Medications [...] with spacer fluticasone propionate (Flonase) 50 mcg/actuation Felicity, Suspension 1 spray by Each Nare route [...] Cardiac Electrophysiology Post-Implant Device Interrogation Luna Mott [id number] 07/24/2022 History: Luna Mott is a 71 y.o. female with a history of HFrEF, LBBB, QRS >150, NYHA II who is POD#1 of REPAIR DEPARTMENT MANAGER-D implant ([employer]ury [employer]). Overall feels well this morning. Ready [...] WOB Neuro- A&Ox3 Device Interrogation: Data ?? Business Education Instructor Model # Serial # Generator [employer] [id number] Atrial Lead [employer] 7841 [id number] RV Lead [employer] 0672 009874 LV Lead [employer] 4674 528341 ?? Diagnostics Pacing Mode: DDD 60-130 Underlying Rhythm: [place] Atrial Episodes: None Ventricular Episodes: None FINAL PROGRAMMING: Pacing: Mode Lower rate (ppm) Upper rate (ppm) ?? DDD 60 130 VF: Rate (bpm) #Antitachycardia pacing First shock energy (J) ?? 200 Quick convert 41 VT: 170 Monitor only Monitor only ? Battery and Leads Impedances (ohms) Sensing (mV) Thresholds HV RA RV LV RA RV LV RA RV LV 73 [phone] (LVa) 7.7 13.1 >25 0.4V @ 0.4 ms 0.4V @ 0.4 ms 0.5 V @ 1.0 ms POD#1 CXR: All leads in nominal positioning Impression: 71 y.o. female who is s/p REPAIR DEPARTMENT MANAGER-D implant for LBBB, NYHA II, HFrEF. [...] [facility]) Fadi Nunez MD 07/24/2022 Pager: [phone] I met with the patient today and [...] agreement. ? Dr. Lalit Mcmahon, electrophysiology attending ([id number]) * Zaria Wright RN - 07/23/2022 8:28 [...] HF, QRS > 150 ms presents for REPAIR DEPARTMENT MANAGER-D placement. ROS: Denies recent fevers or [...] 0.9) flush 5 mL 5 mL Intravenous [id number] ramos MD ??? sodium chloride 0.9 % [...] HF, QRS > 150 ms presents for REPAIR DEPARTMENT MANAGER-D placement. Backup would be LBBAP lead. Antibiotics: cefazolin Rationales for, intended benefits and potential risk of planned procedures reviewed. The patient indicated understanding and agreement with the plan. Informed consent signed. Procedure checklist completed. Fadi Nunez MD Cardiac Electrophysiology Fellow [facility] Pager [phone] 07/23/2022 I met with the patient today [...] agreement. ? Dr. Lalit Mcmahon, electrophysiology attending ([id number]) documented in this encounter Miscellaneous Notes * Brief Op Note - Lalit Mcmahon MD - 07/23/2022 4:04 PM EDT Brief Operative Note Patient Name: Luna Mott : [id number] MR#: [id number] Case Date: 07/23/2022 Surgeon: Surgeon(s) and Role: [...] AM EST Hospital Encounter [place] [address] Arrived Scheduled Orders Name Type Priority Associated Diagnoses Orde r Schedule EKG 12 Lead ECG Routine Cardiac resynchronization therapy defibrillator (REPAIR DEPARTMENT MANAGER-D) in place One Time for 1 [...] (Bezet) 522 ms MUSE SYSTEM Calculated R Monahans 78 degrees MUSE SYSTEM Calculated T Monahans -71 degrees MUSE SYSTEM INTERPRETATION AV dual-paced [...] who have questions please contact the health technical healthcare consultant that requested your imaging first. ? Electronically signed by: Kwame Vargas MD, [facility] ([phone]), at 07/24/2022 6:43 AM Narrative 07/24/2022 6:43 [...] patients who have questions please contactthe health technical healthcare consultant that requested your imaging first. Electronically signed by: Kwame Vargas MD, [facility]([phone]), at 07/24/2022 6:43 AM Lalit Mcmahon MD IMG DX ORDERABLES * ELECTROPHYSIOLOGY PROCEDURE (07/23/2022 1:11 PM EDT) Anatomical Region Laterality Modality Other Narrative 07/23/2022 4:24 PM EDT Table formatting from the original result was not included. BIVENTRICULAR ICD IMPLANTATION City Wellness Coordinator: Lalit Mcmahon MD Fellow: Fadi Nunez [...] lateral branch of the CS in the BARBADIAN view. This branch was cannulated with a [...] the entire procedure. LEAD AND GENERATOR DATA: Business Education Instructor Model # Serial # Generator [employer] [id number] Atrial Lead [employer] 7841 [id number] RV Lead [employer] 0672 737054 LV Lead [employer] 4674 [id number] PACE/SENSE DATA: Sensed wave (mV) Threshold (V) [...] (cGycm2) 300 CONCLUSIONS: Successful implantation of a [employer] biventricular ICD for primary prevention and treatment of symptoms related to congestive heart failure. Follow up in EP clinic in 1-2 months. Procedures performed: new ICD system ( cpt 96943-A7); implant LV lead at time of ICD insertion (cpt 57358) I have read, edited and approve of this report: Lalit Mcmahon MD S Cardiac Electrophysiology 07/23/2022 4:22 PM Procedure Note Lalit Mcmahon MD - 07/23/2022 BIVENTRICULAR ICD IMPLANTATION City Wellness Coordinator: Lalit Mcmahon MD Fellow: Fadi Nunez [...] appropriate lateralbranch of the CS in the BARBADIAN view. This branch was cannulated with a [...] in the entireprocedure. LEAD AND GENERATOR DATA: Business Education Instructor Model # Serial # Generator [employer] G447 [id number] Atrial Lead [employer] 7841 [id number] RV Lead [employer] 0672 059470 LV Lead [employer] 4674 436610 PACE/SENSE DATA: Sensed wave (mV) Threshold (V) [...] (cGycm2) 300 CONCLUSIONS: Successful implantation of a [employer] biventricular ICD forprimary prevention and treatment of symptoms related to congestive heartfailure. Follow up in EP clinic in 1-2 months. Procedures performed: new ICD system ( cpt 31555-K3); implant LV lead attime of ICD insertion (cpt 71591) I have read, edited and approve of this report: Lalit Mcmahon MD [facility] Cardiac Electrophysiology 07/23/2022 4:22 PM Lalit Mcmahon MD EP PROCEDURE ORDERAB LES * POCT Glucose (07/23/2022 12:54 PM EDT) Glucose, POC 83 65 - 199 mg/dL [facility] Comment: Supplemental ranges: <140 mg/dL before meals <180 mg/dL all other times of the day Blood 07/23/2022 12:5 4 PM EDT 07/23/2022 12:54 PM EDT Lalit Mcmahon MD POINT OF CARE TEST O RDERABLES Performing Organization Address [facility] Co de Phone Number [facility] [place] [address] * EKG 12 Lead (07/23/2022 12:33 PM EDT) Ventricular rate 72 BPM MUSE SYSTEM Atrial Rate 72 BPM MUSE SYSTEM P-R Interval 158 ms MUSE SYSTEM QRS Duration 176 ms MUSE SYSTEM Q-T Interval 458 ms MUSE SYSTEM QTC Calculated (Bezet) 501 ms MUSE SYSTEM Calculated P Monahans 34 degrees MUSE SYSTEM Calculated R [place] 12 degrees MUSE SYSTEM Calculated T Monahans -173 degrees MUSE SYSTEM INTERPRETATION Normal sinus rhythm Left bundle branch block Abnormal ECG No previous ECGs available Confirmed by MD Salome, Lalit ([id number]) on 07/23/2022 1:19:03 PM MUSE SYSTEM 07/23/2022 12:3 3 PM EDT 07/23/2022 1:19 PM EDT Lalit Mcmahon MD ECG ORDERABLES Performing Organization Address [facility] de Phone Number MUSE SYSTEM * Differential, Automated (07/23/2022 11:55 AM EDT) Neutrophil % 62.6 % [facility] Neutrophil Absolute 4.14 1.70 - 6.10 x10(3)/[facility] Lymph % 27.0 % [facility] Lymphocytes Abs 1.8 0.9 - 3.2 x10(3)/[facility] Monocyte % 7.3 % [facility] Monocyte Abs 0.5 0.3 - 0.9 x10(3)/[facility] Eos % 2.3 % [facility] Eosinophils Abs 0.2 0.0 - 0.4 x10(3)/[facility] Basophil % 0.6 % [facility] Baso Absolute 0.0 0.0 - 0.1 x10(3)/[facility] Immature Gran % 0.20 % [facility] Comment: Immature granulocytes(IG's)percentage and absolute count will include metamyelocytes, myelocytes, and promyelocytes. Blood smears from CBCs yielding IG's will be scanned manually for concordance. If this scan disagrees with the automated IG or if promyelocytes are noted, a manual differential will be performed. Immature Gran Absolute 0.01 0.00 - 0.04 x10(3)/[facility] Blood 07/23/2022 11:5 5 AM EDT 07/23/2022 12:07 PM EDT Narrative Resulting Agency Comment Spec In Lab Lalit Mcmahon MD HEMATOLOGY ORDERABLE S [facility] [place] [address] * Hemogram (07/23/2022 11:55 AM EDT) White Blood Cell 6.6 4.0 - 9.5 x10(3)/[facility] Red Blood Cell 4.50 4.00 - 5.21 x10(6)/[facility] Hemoglobin 13.7 11.7 - 15.5 g/dL [facility] Hematocrit 42.5 35.7 - 45.8 % [facility] Mean Cell Volume 94.4 82.6 - 94.4 fL [facility] Mean Cell Hemoglobin 30.4 27.1 - 32.0 pg [facility] Mean Cell Hemoglobin Concentration 32.2 31.7 - 35.0 g/dL [facility] Platelet 193 145 - 357 x10(3)/[facility] RDW Standard Deviation 45.5 37.0 - 46.0 fL [facility] RDW coefficient of variation 13.2 11.5 - 14.1 % [facility] Mean Platelet Volume 9.5 7.6 - 12.9 fL [facility] NRBC% auto 0.0 % [facility] NRBC Absolute 0.000 0.000 - 0.000 x10(3)/mcL [facility] Blood 07/23/2022 11:5 5 AM EDT 07/23/2022 12:07 PM EDT Narrative Resulting Agency Comment Spec In Lab Lalit Mcmahon MD HEMATOLOGY ORDERABLE S [facility] [address] [place] [address] * (ABNORMAL) BMP w/fasting Glucose (07/23/2022 11:55 AM EDT) Glucose Fasting 110(H) 65 - 99 mg/dL [facility] Comment: ?Fasting* Glucose Interpretive [...] Urea Nitrogen 23(H) 8 - 18 mg/dL [facility] Creatinine 1.07 0.70 - 1.20 mg/dL [facility] Sodium 141 135 - 145 mmol/L [facility] Potassium 4.8 3.5 - 5.0 mmol/L [facility] Comment: Please note: ??Patients with WBC >100,000 may have falsely elevated Potassium levels. ??For accurate Potassium quantification in these patients send serum separator tube (gold top) for subsequent determinations. ??Contact the Clinical Chemistry Laboratory if there are any questions. Chloride 106 98 - 107 mmol/L [facility] Carbon Dioxide 26 22 - 31 mmol/L [facility] Anion Gap 9 5 - 15 mmol/L [facility] Calcium 9.7 8.5 - 10.5 mg/dL [facility] Est Glomerular Filtration Rate 55(L) >=60 mL/min/1. 73 m?? [facility] Comment: This patient's estimated [...] ORDERABLES Performing Organization Address [facility] Co de Phone Number [facility] [place] [address] * Prothrombin Time (07/23/2022 11:55 AM EDT) Prothrombin Time 11.7 9.4 - 12.5 sec [facility] International Normalization Ratio 1.0 [facility] Comment: An INR <2.0 [...] MD HEMATOLOGY ORDERABLE S Performing Organization Address City/[facility] Co de Phone Number [facility] [place] [address] documented in this encounter Visit Diagnoses Diagnosis HFrEF (heart failure with reduced ejection fraction)- Primary Left bundle branch block Other left bundle branch block Nonischemic cardiomyopathy Other primary cardiomyopathies Cardiac resynchronization therapy defibrillator (REPAIR DEPARTMENT MANAGER-D) in place Left bundle branch block [...] Routine documented in this encounter Care Teams Refrigeration Mechanic Relationship Specialty Start Date End Date Lolly Oliveira MD [address] [place] [address] PCP - General 07/17/13 documented as of this encounter
--- OUTSIDE RECORDS SUMMARY | 2024-04-12 11:11 | XMS_ITS | Encounter Summary ---
Author Organization [facility] Address [address] [place] [address] Care Team Providers Care Clock And Watch Hands Mounter Name Role Phone Lolly Oliveira MD Primary Care Provider [phone] Encounter Details Date Type Department Care Team (Late st Contact Info) Description 04/12/2007 Results Only [facility] conversion [address] [place] [address] Lolly Oliveira MD [address] [place], [place] [id number] Social History Tobacco Use Types Packs/Day Years [...] ? JING ALVARENGA ? Accession #: ? [id number] : ? 1950 (Age: 56) ??F ?Collect Date: ? 04/12/2007 Location: ? [facility] ? Receive Date: ? 04/13/2007 Provider: ?LOLLY OLIVEIRA MD Copy to: ? Specimen/Source: ?ThinPrep Pap Test, Cervix/Endocervix, processed on [employer] ThinPrep Imaging System, with manual evaluation Last [...] ORDERABLES Final Resu lt [facility] BLANCO [address] [place] [address] documented in this encounter Visit Diagnoses Not on filedocumented in this encounter Care Teams Clock And Watch Hands Mounter Relationship Specialty Start Date End Date Lolly Oliveira MD [address] [place] [address] PCP - General 11/13/08 documented as of this encounter
--- OUTSIDE RECORDS SUMMARY | 2024-04-12 11:11 | XMS_ITS | Encounter Summary ---
Author Organization [facility] [place] [address] Care Team Providers Care Glass Robot Operator Name Role Phone Lolly Oliveira MD Primary Care Provider [phone] Encounter Details Date Type Department Care Team (Late st Contact Info) Description 05/18/2023 Refill Dermatology at [address] [address] Nora Meredith LPN Social History [...] patient. She voiced understanding. Order sent to [facility] drug. documented in this encounter Plan of Treatment Upcoming Encounters Date Type Department Care Team (Late st Contact Info) Description 04/15/2024 10:00 AM EST Hospital Encounter Non-Invasive [place] [address] Arrived documented as of this encounter Visit Diagnoses Not on filedocumented in this encounter Care Teams Glass Robot Operator Relationship Specialty Start Date End Date Lolly Oliveira MD [address] [place] [address] PCP - General 07/17/13 documented as of this encounter
--- OUTSIDE RECORDS SUMMARY | 2024-04-12 11:11 | XMS_ITS | Clinical Summary ---
Author Organization [facility] [address] Care Team Providers Care Mud Plant Operator Name Role Phone Lolly Oliveira MD Primary Care Provider [phone] Allergies Active Allergy Reactions Criticality Noted Date [...] spacer Active fluticasone propionate (Flonase) 50 mcg/actuation [place], Suspension 1 spray by Each Nare [...] PM EST Hospital Encounter [place] [address] Discharge Disposition: Home from Last [...] Hospital Encounter [place] [address] Arrived Health Maintenance Due Date Last Done [...] series) 11/07/2023 Medical Devices Implanted Type Area Fuel Tank Sealer And Tester Device Identifier Shelf Expiration Date Model / Serial / Lot Bsx: [id number]: [id number]/18/2 023 Implanted: by Lalit Mcmahon MD (Quantity not on file) Defibrillator Chest Wall [employer] [id number] / [id number] / Bsx: [id number]: 305269-8/18/2 023 Implanted: by Lalit Mcmahon MD (Quantity not on file) Lead Heart [employer] 4674 / [id number] / Bsx: [id number]: [id number] Implanted: by Lalit Mcmahon MD (Quantity not on file) Lead Heart [employer] 7841 / [id number] / Bsx: [id number]: 313607-0/18/2 023 Implanted: by Lalit Mcmahon MD (Quantity not on file) Lead Heart [employer] 0672 / [id number] / Procedures Procedure Name Priority Date/Time Associated [...] Status decision made by: Patient Care Teams Mud Plant Operator Relationship Specialty Start Date End Date Lolly Oliveira MD [address] [place] [id number] PCP - General 07/17/13
--- OUTSIDE RECORDS SUMMARY | 2024-04-12 11:11 | XMS_ITS | Encounter Summary ---
Author Organization [facility] Address [facility] [place] [address] Care Team Providers Care Inside Barrel Lathe Operator Name Role Phone Lolly Oliveira MD Primary Care Provider [phone] Encounter Details Date Type Department Care Team (Late st Contact Info) Description 11/11/2022 Orders Only Cardiology at [address] [phone] Lalit Mcmahon MD [facility] [address] Nonischemic cardiomyopathy Social History Tobacco Use Types [...] [facility] Hospital Encounter Non-[place] [phone] Arrived documented as of this encounter Visit Diagnoses Diagnosis Nonischemic cardiomyopathy Other primary cardiomyopathies documented in this encounter Care Teams Inside Barrel Lathe Operator Relationship Specialty Start Date End Date Berrian, Lolly M, MD [address] [place] [address] PCP - General 07/17/13 documented as of this encounter
--- OUTSIDE RECORDS SUMMARY | 2024-04-12 11:11 | XMS_ITS | Encounter Summary ---
Author Organization [facility] Address [address] [place] [address] Care Team Providers Care Power Generation Engineer Name Role Phone Lolly Oliveira MD Primary Care Provider [phone] Encounter Details Date Type Department Care Team (Late st Contact Info) Description 05/29/2002 Results Only [facility] [place] [facility] [address] [place] [address] Silvia Diehl, [address] [place] [phone] Social History Tobacco Use Types Packs/Day Years [...] ? LYLE, JING ? Accession #: ? [id number] : ? 1950 (Age: 51) ??F ?Collect Date: ? 05/29/2002 Location: ? [facility] ? Receive Date: ? 05/31/2002 Provider: ?SILVIA DIEHL JUICE STANDARDIZER Copy to: ? Specimen/Source: ?ThinPrep Pap Test, [...] [facility] 05/29/2002 05/31/2002 us Silvia Diehl JUICE STANDARDIZER PATHOLOGY ORDERABLES Final R esult [facility] [address] [place] [address] documented in this encounter Visit Diagnoses Not on filedocumented in this encounter Care Teams Power Generation Engineer Relationship Specialty Start Date End Date Lolly Oliveira MD [address] [place] [address] PCP - General 11/13/08 documented as of this encounter
--- OUTSIDE RECORDS SUMMARY | 2024-04-12 11:11 | XMS_ITS | Encounter Summary ---
Author Organization [facility] [place] [address] Care Team Providers Care Second Baller Name Role Phone Lolly Oliveira MD Primary Care Provider [phone] Encounter Details Date Type Department Care Team (Latest Contact Info) Description 10/18/2023 10:00 AM EDT - 10/18/2023 11:59 PM EDT Hospital Encounter [place] [phone] Discharge Disposition: Home Social History Tobacco Use [...] with spacer fluticasone propionate (Flonase) 50 mcg/actuation [place], Suspension 1 spray by Each Nare route daily as needed. documented as of this encounter Plan of Treatment Upcoming Encounters Date Type Department Care Team (Late st Contact Info) Description 04/15/2024 10:00 AM EST Hospital Encounter [place] [address] Arrived documented as of this encounter Procedures [...] on filedocumented in this encounter Care Teams Second Baller Relationship Specialty Start Date End Date Lolly Oliveira MD [address] [place] [address] PCP - General 07/17/13 documented as of this encounter
--- OUTSIDE RECORDS SUMMARY | 2024-04-12 11:11 | XMS_ITS | Encounter Summary ---
Author Organization [place] [address] Care Team Providers Care Research Advisor Name Role Phone Lolly Oliveira MD Primary Care Provider [phone] Encounter Details Date Type Department Care Team (Latest Contact Info) Description 04/21/2023 10:00 AM EST - 04/21/2023 11:59 PM EST Hospital Encounter [place] [phone] Discharge Disposition: Home Social History Tobacco Use [...] spacer fluticasone propionate (Flonase) 50 mcg/actuation [place], Suspension 1 spray by Each Nare [...] filedocumented in this encounter Care Teams Research Advisor Relationship Specialty Start Date End Date Lolly Oliveira MD [address] [place] [address] PCP - General 07/17/13 documented as of this encounter
--- OUTSIDE RECORDS SUMMARY | 2024-04-12 11:11 | XMS_ITS | Data Portability ---
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 Personal Care Needs Such As Eating, Bathing, Dressing, Or Getting Around The House? No Information not available 05/21/2023 Can You Handle Your Own Money Without Help? Yes [email or web address] Information not available 05/21/2023 Are You Having Difficulties Driving Your Car? No [email or web address] Information no t available 05/21/2023 Do You Always Fasten Your Seat Belt When You Are In A Car? Yes- Usually Information not available 05/21/2023 How Often During The Past Four Weeks Have You Been Bothered By Any Of The Following Problems? Falling Or Dizzy When Standing Up? Never [email or web address] Information not available 05/21/2023 Sexual Problems? Never [email or web address] Informat ion not available 05/21/2023 Trouble Eating Well? Sometimes Information not available 05/21/2023 Teeth Or Denture Problems? Sometimes esernwvm66 Information not available 05/21/2023 Problems Using The Telephone? Never [email or web address] Information not available 05/21/2023 Tiredness Or Fatigue? Sometimes [email or web address] Information not available 05/21/2023 Have You Had 2 Or More Falls Or Sustained An Injury With A Fall In The Last Year? No [email or web address] Information no t available 05/21/2023 Do You Have Difficulty With Walking Or Balance? No [email or web address] Information not available 05/21/2023 Do You Currently Use A Hearing Device? No [email or web address] Information not available 05/21/2023 Do You Currently Have Any Trouble With Your Vision? Yes tfenwpzl19 Information no t available 05/21/2023 Do You Exercise For About 20 Minutes Three Or More Days A Week? Yes- Most Of The Time [email or web address] Information not available 05/21/2023 Are There Any Safety Concerns In Your Home (see Attached [facility] Pamphlet)? No [email or web address] Information not available 05/21/2023 How Often Do You Have Trouble Taking Medicines The Way You Have Been Told To Take Them? I Always Take Them As Prescribed [email or web address] Information not available 05/21/2023 How Confident Are You That You Can Control And Manage Most Of Your Health Problems? Very Confident [email or web address] Information not available 05/21/2023 Do You Currently Have Any Difficulty With Your Hearing? No [email or web address] Information not available 05/21/2023 Date Of Most Recent SBINS 05/21/2023 [email or web address] Information not available 05/21/2023 What Was The Date Of Your Most Recent Tobacco Screening? 09/01/2023 Information not available 09/01/2023 Has Tobacco Cessation Counseling Been Provided? Yes Information not available 09/01/2023 On What Date Was Tobacco Cessation Counseling Provided? 09/01/2023 Information not available 09/01/2023 Do You Or Have You Ever Used Any Other Forms Of Tobacco Or Nicotine? No [email or web address] Information not available 05/21/2023 Sex: Female Functional [...] preservative free, adsorbed 9 completed Not Available [facility] 01/15/2023 04:53:39 Tdap 8 completed Not Available [facility] 01/15/2023 04:53:39 zoster live 3 completed Not Available [facility] 01/15/2023 04:53:40 Pneumococcal conjugate PCV 13 6 completed Not Available [facility] 01/15/2023 04:53:40 Influenza, high-dose, trivalent, PF 8 completed Not Available [facility] 01/15/2023 04:53:41 Td(adult) unspecified formulation 3 completed Not Available [facility] 01/15/2023 04:53:41 Influenza, split virus, trivalent, preservative 6 completed Not Available [facility] 01/15/2023 04:53:41 Influenza, split virus, trivalent, preservative 5 completed Not Available [facility] 01/15/2023 04:53:41 Influenza, split virus, quadrivalent, PF 9 completed Not Available [facility] 01/15/2023 04:53:41 zoster recombinant 9 completed Not Available [facility] 01/15/2023 04:53:42 zoster recombinant 8 completed Not Available [facility] 01/15/2023 04:53:42 Influenza, high-dose, quadrivalent, PF 1 completed Not Available [facility] 01/15/2023 04:53:43 Influenza, high-dose, quadrivalent, PF 0 completed [facility] 01/15/2023 04:53:43 Influenza, high-dose, quadrivalent, PF 2 completed Not Available [facility] 01/15/2023 04:53:43 COVID-19, mRNA, LNP-S, PF, 100 mcg/0.5mL dose or 50 mcg/0.25mL dose 2 completed Not Available [facility] 01/15/2023 04:53:43 COVID-19 vaccine, vector-nr, rS-Ad26, PF, 0.5 mL 1 completed Not Available [facility] 01/15/2023 04:53:44 SARS-COV-2 (COVID-19) vaccine, UNSPECIFIED 1 completed Not Available [facility] 01/15/2023 04:53:44 SARS-COV-2 (COVID-19) vaccine, UNSPECIFIED 1 completed Not Available [facility] 01/15/2023 04:53:44 pneumococcal polysaccharide PPV23 5 completed Not Available [facility] 01/15/2023 04:53:45 Hep B, unspecified formulation 4 completed Not Available [facility] 01/15/2023 04:53:45 Hep B, unspecified formulation 3 completed Not Available [facility] 01/15/2023 04:53:46 Hep B, unspecified formulation 3 completed Not Available [facility] 01/15/2023 04:53:46 influenza, unspecified formulation 0 completed Not Available [facility] 01/15/2023 04:53:47 influenza, unspecified formulation 3 completed Not Available [facility] 01/15/2023 04:53:47 influenza, unspecified formulation 9 completed Not Available [facility] 01/15/2023 04:53:47 influenza, unspecified formulation 1 completed Not Available [facility] 01/15/2023 04:53:47 influenza, unspecified formulation 7 completed Not Available [facility] 01/15/2023 04:53:48 influenza, unspecified formulation 4 completed Not Available [facility] 01/15/2023 04:53:48 influenza, unspecified formulation 8 completed Not Available [facility] 01/15/2023 04:53:48 influenza, unspecified formulation 2 completed Not Available [facility] 01/15/2023 04:53:48 Influenza, high-dose, quadrivalent, PF 3 completed Not Available [facility] 03/19/2023 05:33:03 COVID-19, mRNA, LNP-S, PF, herminio-sucrose, 30 mcg/0.3 mL 3 completed Not Available [facility] 03/19/2023 05:33:03 COVID-19, mRNA, LNP-S, bivalent, PF, 50 mcg/0.5 mL or 25mcg/0.25 mL dose 4 completed DENYS Bauer, [facility] 12/20/2023 15:23:33 Respiratory syncytial virus (RSV) vaccine, unspecified 4 completed DENYS Buaer, [facility] 12/20/2023 15:24:29 influenza, unspecified formulation 4 completed DENYS Bauer, [facility] 12/20/2023 15:25:14 Past Encounters Encounter ID Performer Location Encounter Start Date Encounter Closed Date Diagnosis/Indication Diagnosis SNOMED-CT Code Diagnosis ICD10 Code Diagnosis Note [id number] LOLLY CORTEZ MD [facility] [address] [place] [address] 05/21/2023 10:03:54 05/21/2023 11:37:49 Onychomycosis 416550111 B35.1 There is bothering her more, more difficult to trim her toenails. She also has a callus that she would like looked with podiatry. Asthma 133827770 J45.90 9 Rare use of albuterol, she will continue the same Cardiomyopathy 64757790 I10 Clinically remaining stable, has had significan [...] well-contr olled. Disorder of hip joint 42 4905344 M12.859 Doing well status post now bilateral total hip replacemen ts. 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 She is working on exercises in addition to walking. Mammo will be due in the fall. Up-to-date with colonoscop y. [id number] [address],[facility] [address] [place] [address] 09/01/2023 10:23:16 09/01/2023 13:28:10 Vertigo 791414155 R42 Patient has been experienci ng vertigo [...] on. Impacted c erumen of bilateral ears [id number] 886894 H61.23 Ear lavage performed with complete resolution and no signs of infection. [id number] LOLLY CORTEZ MD [address] [address] 11/26/2023 07:26:08 11/26/2023 08:10:59 Screening mammography 27046983 Z12.31 Adjustment disorder 1722 6007 F43.20 , Still grieving the loss of her about a year and a half ago. She still finds it hard being in the house alone. Her kids and grandkids have been with a good visiting regularly which she appreciate s. Asthma 598728768 J45.90 9 Rare use of albuterol, she will continue the same Essential hypertension 48084303 I10 Under reasonably good control, see cardiomyop athy below Guttate psoriasis 960052 00 L40.4 , Following dermatolog y. Will be starting photothera py in addition to the clobetasol once the colder weather arrives. Has been just trying to get some sun exposure on her skin over the summer. Currently psoriasis is not too bad Cardiomyopathy 37203006 I10 Clinically remaining stable, has had significan [...] okay continuing to take it. Up-to-date with [facility]. Creatinine remains a little elevated as is BUN, although these have improved. Encouraged increased fluid intake Hyperlipidemia 62020387 E78.5 on rosuvastat in, lipids well-contr olled, normal LFTs Prediabetes 243835199 R7 3.03 And obesity. A1c 5.9, This [...] continue doing that. She has met with [facility]. Health Concerns Section Related Observation LastModified by Organization Detai ls LastModified Time None Recorded Concern Status LastModified by Organization Details LastModified Time None Recorded Advance Directives Directive None Recorded Payers Encounter Date Sequence Insurance Name Policy Number Policy Lema Covered Member ID Lema Member ID Guarantor Name 05/21/2023 1 [id number] - [place]PO) [id number] Luna Barber [place] [id number] Luna Lun[place]lin 09/01/2023 1 [place]) [id number] Luna Lunaslin [id number] Luna Lunaslin 11/26/2023 1 [place] - [place]) [id number] Luna Lunaslin [id number] Luna Mott Notes Date Note Type Note Provider Name and Address Organization Details Recorded Time 05/21/2023 text/html Thais here today for an annual wellness exam LOLLY CORTEZ MD [address], [place], [address], [facility]. 05/24/2023 18:32:35 09/01/2023 text/html Luna is [...] it. JESSICA INGRAM PA-C [address], [place], [address], [facility]. 09/01/2023 13:55:07 11/26/2023 text/html Thais here today for follow-up of cardiomyopathy, obesity LOLLY CORTEZ MD [address], [place], [address], [facility]. 11/28/2023 09:26:44 OBGyn Episode No OBEpisode recorded.
--- OUTSIDE RECORDS SUMMARY | 2024-04-12 11:11 | XMS_ITS | Referral Summary ---
Author Organization [facility] Address [address] [place] [address] Care Team Providers Care Power Washer Name Role Phone Lolly Oliveira MD Primary Care Provider [phone] Social History Tobacco Use Types Packs/Day Years Used Date Smoking Tobacco: Never Assessed Comments Unknown Sex and Gender Information Value Date Recorded Sex Assigned at Not on file Legal Sex Female 18:31 EST Gender Identity Not on file Sexual Orientation Not on file Plan of Treatment Not on file Insurance [facility] MEDICARE Care Teams Power Washer Relationship Specialty Start Date End Date Lolly Oliveira MD [address] [place] [address] PCP - General 11/13/08
--- OUTSIDE RECORDS SUMMARY | 2024-04-12 11:11 | XMS_ITS | Clinical Summary ---
Author Organization [facility] Address [address] [place] [address] Care Team Providers Care Audit Machine Operator Name Role Phone Lolly Oliveira MD Primary Care Provider [phone] Social History Tobacco Use Types Packs/Day Years [...] 08/10/2023 COVID-19 Vaccine (2023- season) [address] [facility] MEDICARE Care Teams Audit Machine Operator Relationship Specialty Start Date End Date Berrian, Lolly, MD [address] [place] [address] PCP - General 11/13/08
--- OUTSIDE RECORDS SUMMARY | 2024-04-12 11:11 | XMS_ITS | Encounter Summary ---
Author Organization [facility] [place] [address] Care Team Providers Care Supervisor Patching Name Role Phone Lolly Oliveira MD Primary Care Provider [phone] Encounter Details Date Type Department Care Team (Late st Contact Info) Description 03/15/2023 Telephone Cardiology at [address] [phone] Saranya Ma Social History Tobacco Use Types [...] her to have an echo done at [facility] prior to her appt withmam there on 05/12/23. Message sent to Dr. Mcmahon asking him to put order in if he would like her to have this done. Saranya Ma Sr. Clinical Procedure [place]/Cell Cleaner documented in this encounter Plan of Treatment Upcoming Encounters Date Type Department Care Team (Late st Contact Info) Description 04/15/2024 10:00 AM EST Hospital Encounter [place] [address] Arrived documented as of this encounter Visit Diagnoses Not on filedocumented in this encounter Care Teams Supervisor Patching Relationship Specialty Start Date End Date Lolly Oliveira MD [address] [place] [address] PCP - General 07/17/13 documented as of this encounter
--- OUTSIDE RECORDS SUMMARY | 2024-04-12 11:11 | XMS_ITS | Encounter Summary ---
Author Organization [facility] Address [address] [place] [address] Care Team Providers Care Document Preparer Microfilming Name Role Phone Lolly Oliveira MD Primary Care Provider [phone] Encounter Details Date Type Department Care Team (Late st Contact Info) Description 03/21/2019 Lab Requisition [facility] Pathology & Laboratory Medicine - [address] [address] Unknown, Provider, Social History Tobacco Use Types [...] 211 - 911 pg/mL 03/22/2019 11:52 EST [facility] Blood VENOUS BLOOD / Unknown 03/16/2019 9:25 EST 03/21/2019 21:35 EST us Provider Unknown CHEMISTRY & BLOOD GAS ORDERA BLES Final Result [facility] [address] [place] [address] documented in this encounter Visit Diagnoses Not on filedocumented in this encounter Care Teams Document Preparer Microfilming Relationship Specialty Start Date End Date Lolly Oliveira MD [address] [place] [address] PCP - General 11/13/08 documented as of this encounter
--- OUTSIDE RECORDS SUMMARY | 2024-04-12 11:11 | XMS_ITS | Encounter Summary ---
Author Organization [facility] [place] [address] Care Team Providers Care Coil Spring Assembler Name Role Phone Lolly Oliveira MD Primary Care Provider [phone] Reason for Visit * Reason Comments Follow-up 8 weeks UVB treatmen t twice weekly Encounter Details Date Type Department Care Team (Late st Contact Info) Description 07/19/2023 11:00 AM EDT Office Visit Dermatology at [address] [phone] Clay Ramírez MD [address], ERIKA A DERMATOLOGY [place], [place] [phone] Psoriasis Social History Tobacco Use Types Packs/Day [...] st Contact Info) Description 04/15/2024 10:00 AM [facility] Hospital Encounter [place] [address] Arrived documented as of this encounter Visit Diagnoses Diagnosis Psoriasis Other psoriasis documented in this encounter Care Teams Coil Spring Assembler Relationship Specialty Start Date End Date Lolly Oliveira MD [address] [place] [address] PCP - General 07/17/13 documented as of this encounter
--- OUTSIDE RECORDS SUMMARY | 2024-04-12 11:11 | XMS_ITS | Encounter Summary ---
Author Organization [place] [address] Care Team Providers Care Mold Cooler Name Role Phone Lolly Oliveira MD Primary Care Provider [phone] Encounter Details Date Type Department Care Team (Latest Contact Info) Description 01/21/2023 10:00 AM EST - 01/21/2023 11:59 PM EST Hospital Encounter [place] [phone] Discharge Disposition: Home Social History Tobacco Use [...] with spacer fluticasone propionate (Flonase) 50 mcg/actuation [place], Suspension 1 spray by Each Nare route [...] AM EST Hospital Encounter Non[place] [address] Arrived documented as of this [...] filedocumented in this encounter Care Teams Mold Cooler Relationship Specialty Start Date End Date Lolly Oliveira MD [address] [place] [address] PCP - General 07/17/13 documented as of this encounter
--- OUTSIDE RECORDS SUMMARY | 2024-04-12 11:11 | XMS_ITS | Encounter Summary ---
Author Organization [facility] Address [address] [place] [address] Care Team Providers Care Plaster Mold Maker Name Role Phone Lolly Oliveira MD Primary Care Provider [phone] Encounter Details Date Type Department Care Team (Late st Contact Info) Description 05/02/2004 Results Only [facility] conversion [address] [place] [address] Lolly Oliveira MD [address] [place], [place] [phone] Social History Tobacco Use Types Packs/Day Years [...] 68. [facility] Report Status Final [id number] [facility] 05/02/2004 9:32 EST 05/10/2004 9:32 EST us Lolly Oliveira MD MICROBIOLOGY - GENERAL ORDERABL ES Final Result [facility] [address] [place] [address] * CYTOPATHOLOGY (05/02/2004 0:00 EST) Pathology Report: CYTOPATHOLOGY REPORT Reports generated via electronic interface contain original data; however they are lacking the format of the original report. Caution should be taken when reading/interpreti ng unformatted reports. Name: ? JING ALVARENGA ? Accession #: ? [id number] : ? 1950 (Age: 53) ??F ?Collect [...] ORDERABLES Final Resu lt Performing Organization Address City/State/[facility] Co de Phone Number [facility] [address] [place] [address] documented in this encounter Visit Diagnoses Not on filedocumented in this encounter Care Teams Plaster Mold Maker Relationship Specialty Start Date End Date Lolly Oliveira MD [address] [place] [address] PCP - General 11/13/08 documented as of this encounter
--- OUTSIDE RECORDS SUMMARY | 2024-04-12 11:11 | XMS_ITS | Encounter Summary ---
Author Organization [facility] [place] [address] Care Team Providers Care Glass Handler Name Role Phone Lolly Oliveira MD Primary Care Provider [phone] Encounter Details Date Type Department Care Team (Late st Contact Info) Description 11/16/2022 Telephone Cardiology at [address] [phone] Luna Rousseau, RN Social History Tobacco Use [...] BP today was 118/57 at [facility] at [facility]. Pt is going twice a week [...] [facility] Hospital Encounter Non[place] [phone] Arrived documented as of this encounter Visit Diagnoses Not on filedocumented in this encounter Care Teams Glass Handler Relationship Specialty Start Date End Date Lolly Oliveira MD [address] [place] [address] PCP - General 07/17/13 documented as of this encounter
--- OUTSIDE RECORDS SUMMARY | 2024-04-12 11:11 | XMS_ITS | Encounter Summary ---
Author Organization [facility] Address [address] [place] [address] Care Team Providers Care Metal Sprayer Machined Parts Name Role Phone Lolly Oliveira MD Primary Care Provider [phone] Encounter Details Date Type Department Care Team (Late st Contact Info) Description 05/27/2021 Lab Requisition [facility] Pathology & Laboratory Medicine - [address] [address] Iman Moran, DO [address] [place], [place] [phone] Encounter for other general examination Social History [...] explore management options, if applicable. 05/30/2021 13:31 [facility] Final Diagnosis A. COLON, POLYP AT 90 CM, BIOPSY/POLYPECTOM Y: - Tubular adenoma. 05/30/2021 13:31 [facility] Attestation By the signature below, the attending physician certifies that they have 1) personally conducted a gross and/or microscopic examination of the described specimen(s), and/or personally interpreted the results of laboratory testing of the described specimen(s), and 2) personally rendered or confirmed the above diagnosis. 05/30/2021 13:31 [facility] at 1331 Clinical History Severe diverticula and polypectomy x1 05/30/2021 13:31 [facility] Gross Description A. Received in formalin labelled with proper patient identification (initials J, K) and colon polyp x1 at 90 cm is a light pineda polypoid tissue measuring 0.2 x 0.2 x 0.2 cm. Submitted intact in A1. MICKEY CARLOS(ASCP) 05/27/2021 19:11 05/30/2021 13:31 [facility] Performing Lab [facility] 05/30/2021 13:31 [facility] Scanned Images 05/30/2021 13:31 [facility] Tissue ENTIRE COLON / Unknown 05/27/2021 11:23 EDT 05/27/2021 16:33 EDT us Iman Moran DO PATHOLOGY ORDERABLES Final Re sult [facility] [address] [place] [address] documented in this encounter Visit Diagnoses Diagnosis Encounter for other general examination documented in this encounter Care Teams Metal Sprayer Machined Parts Relationship Specialty Start Date End Date Lolly Oliveira MD [address] [place] [address] PCP - General 11/13/08 documented as of this encounter
--- OUTSIDE RECORDS SUMMARY | 2024-04-12 11:11 | XMS_ITS | Encounter Summary ---
Author Organization [facility] [place] [address] Care Team Providers Care Air Traffic Coordinator Name Role Phone Lolly Oliveira MD Primary Care Provider [phone] Encounter Details Date Type Department Care Team (Latest Contact Info) Description 01/16/2024 10:00 AM EST - 01/16/2024 11:59 PM EST Hospital Encounter Non-Invasive [place] [phone] Discharge Disposition: Home Social History Tobacco Use [...] with spacer fluticasone propionate (Flonase) 50 mcg/actuation [place], Suspension 1 spray by Each Nare route daily as needed. documented as of this encounter Plan of Treatment Upcoming Encounters Date Type Department Care Team (Late st Contact Info) Description 04/15/2024 10:00 AM EST Hospital Encounter Non-Invasive [place] [address] Arrived documented as of this encounter Procedures [...] filedocumented in this encounter Care Teams Air Traffic Coordinator Relationship Specialty Start Date End Date Lolly Oliveira MD [address] [place] [address] PCP - General 07/17/13 documented as of this encounter
--- OUTSIDE RECORDS SUMMARY | 2024-04-12 11:11 | XMS_ITS | Encounter Summary ---
Author Organization [facility] [place] [address] Care Team Providers Care Gas Roller Operator Name Role Phone Lolly Oliveira MD Primary Care Provider [phone] Encounter Details Date Type Department Care Team (Late st Contact Info) Description 03/17/2023 Telephone Cardiology at [address] [phone] Saranya Ma Social History Tobacco Use Types [...] 9:43 AM EST Echo order faxed to [facility] at [phone]. No Prior auth needed. Ref #:[id number]. Saranya Ma Sr. Clinical Procedure Pringle/Property Officer documented in this encounter Plan of Treatment Upcoming Encounters Date Type Department Care Team (Late st Contact Info) Description 04/15/2024 10:00 AM [facility] Hospital Encounter [place] [address] Arrived documented as of this encounter Visit Diagnoses Not on filedocumented in this encounter Care Teams Gas Roller Operator Relationship Specialty Start Date End Date Lolly Oliveira MD [address] [place] [address] PCP - General 07/17/13 documented as of this encounter
--- OUTSIDE RECORDS SUMMARY | 2024-04-12 11:11 | XMS_ITS | Encounter Summary ---
Author Organization [facility] [place] [address] Care Team Providers Care Non Clinical Advisor Name Role Phone Lolly Oliveira MD Primary Care Provider [phone] Reason for Visit * Reason Onset Date Comments Post Procedure Call 07/30/2022 Encounter Details Date Type Department Care Team (Late st Contact Info) Description 07/30/2022 Notes Only Cardiology at [address] [phone] Rosenda Sutton, RN Post Procedure Call Social History Tobacco Use Types Packs/Day Years Used Date Smoking Tobacco: Never Alcohol Use Standard Drinks/Week Comments Not Currently 0 (1 standard drink = 0.6 oz pur e alcohol) [facility] Inpatient Questions Answer Date Recorded [...] 07/30/2022 9:59 AM EDTSummary: Post Procedure Call: COUNTERINTELLIGENCE AGENT implant EP RN Post-Procedure Note: Date of Follow Up Call: 07/30/2022 Spoke With: Patient Procedure Type (choose all that apply): ICD Performing MIRLANDE Mcmahon Date of Procedure: 07/23/2022 Date of Discharge: 07/24/2022 Follow Up EP Visit Scheduled?: No No Follow Up Visit Reason: Follow up outside Outside Location: [facility] Date of Non EP Visit: 08/12/2022 [...] Note: Follow-up Recommendations for Providers: - s/p COUNTERINTELLIGENCE AGENT-D implant - post implant QRS 130 [...] [place] Hospital Encounter [place] [address] Arrived documented as of this encounter Visit Diagnoses Not on filedocumented in this encounter Care Teams Non Clinical Advisor Relationship Specialty Start Date End Date Lolly Oliveira MD [address] [place] [address] PCP - General 07/17/13 documented as of this encounter
--- OUTSIDE RECORDS SUMMARY | 2024-04-12 11:11 | XMS_ITS | Encounter Summary ---
Author Organization [facility] [place] [address] Care Team Providers Care Commercial Estimator Name Role Phone Lolly Oliveira MD Primary Care Provider [phone] Encounter Details Date Type Department Care Team [...] AM EST Hospital Encounter Non-Invasive [place] [address] Arrived documented as of this encounter Visit Diagnoses Not on filedocumented in this encounter Care Teams Commercial Estimator Relationship Specialty Start Date End Date Lolly Oliveira MD [address] [place] [address] PCP - General 07/17/13 documented as of this encounter
--- OUTSIDE RECORDS SUMMARY | 2024-04-12 11:11 | XMS_ITS | Encounter Summary ---
Author Organization [facility] [place] [address] Care Team Providers Care Cyber Security Systems Engineer Name Role Phone Lolly Oliveira MD Primary Care Provider [phone] Encounter Details Date Type Department Care Team (Latest Contact Info) Description 10/23/2022 10:00 AM EDT - 10/23/2022 11:59 PM EDT Hospital Encounter [place] [address] Discharge Disposition: Home Social History Tobacco Use [...] with spacer fluticasone propionate (Flonase) 50 mcg/actuation [place], Suspension 1 spray by Each Nare route [...] [facility] Encounter [place] [address] Arrived documented as of this [...] on filedocumented in this encounter Care Teams Cyber Security Systems Engineer Relationship Specialty Start Date End Date Lolly Oliveira MD [address] [place] [address] PCP - General 07/17/13 documented as of this encounter
--- OUTSIDE RECORDS SUMMARY | 2024-04-12 11:11 | XMS_ITS | Encounter Summary ---
Author Organization [facility] Address [address] [place] [address] Care Team Providers Care Director Of Midwifery/Staff Midwife Name Role Phone Lolly Oliveira MD Primary Care Provider [phone] Encounter Details Date Type Department Care Team (Late st Contact Info) Description 04/01/2005 Results Only [facility] conversion [address] [place] [address] Blair Dukes MD [address] [place] [id number] Social History Tobacco Use Types Packs/Day Years [...] ? JING ALVARENGA ? Accession #: ? [id number] ? : ? 1950 (Age: 54) ??F [...] ? Received in [place]e' s fixative labelled [place] and #1 ??terminal ileum bx is a single 0.3 x 0.2 x 0.2 cm tissue, submitted intact as (A). Received in [place]e' s fixative labelled [place] and #2 ??transverse colon bx is a single 0.2 x 0.2 x 0.2 cm tissue, submitted intact as (B). ??(Dr. Lechuga)/[facility] End of Report [facility] 04/01/2005 04/02/2005 15: 24 EST us Blair Dukes MD PATHOLOGY ORDERABLES Final Resul t [facility] [address] [place] [address] documented in this encounter Visit Diagnoses Not on filedocumented in this encounter Care Teams Director Of Midwifery/Staff Midwife Relationship Specialty Start Date End Date Lolly Oliveira MD [address] [place] [address] PCP - General 11/13/08 documented as of this encounter
--- OUTSIDE RECORDS SUMMARY | 2024-04-12 11:11 | XMS_ITS | Encounter Summary ---
Author Organization [facility] Address [address] [place] [address] Care Team Providers Care Assistant Paralegal Name Role Phone Lolly Oliveira MD Primary Care Provider [phone] Encounter Details Date Type Department Care Team (Late st Contact Info) Description 02/20/2020 Lab Requisition [facility] Pathology & Laboratory Medicine - [address] [address] Outr Resulting Lab, Provider Social History Tobacco [...] in accordance with CLIA regulations, College of [employer] (CAP) guidelines (May 25, 2019), and FDA guidance (May 06, 2019). This test is only for use under the Food and Drug Administration's Emergency Use Authorization. Swab ENTIRE NASOPHARYNX / Unknown 02/19/2020 16:30 EST 02/20/2020 16:09 EST us Provider Outr Resulting Lab MICROBIOLOGY - GENER AL ORDERABLES Final Result [facility] [place], [place] * COVID-19 TESTING (02/19/2020 16:30 EST) COVID-19 rt-PCR Result NEGATIVE Negative 02/22/2020 23:41 EST [facility] Comment: 2019-novel Coronavirus (2019-nCoV) [...] in accordance with CLIA regulations, College of [employer] Pathologists (CAP) guidelines (May 25, 2019), and FDA guidance (May 06, 2019). This test is only for use under the Food and Drug Administration's Emergency Use Authorization. Performing Lab [facility] 02/22/2020 23:41 EST [facility] Swab 02/19/2020 16:3 0 EST 02/20/2020 16:09 EST us Provider Outr Resulting Lab MICROBIOLOGY - GENER AL ORDERABLES Final Result [facility] [address] [place] [address] [facility] [place], [place] documented in this encounter Visit Diagnoses Not on filedocumented in this encounter Care Teams Assistant Paralegal Relationship Specialty Start Date End Date Lolly Oliveira MD [address] [place] [address] PCP - General 11/13/08 documented as of this encounter
--- OUTSIDE RECORDS SUMMARY | 2024-04-12 11:11 | XMS_ITS | Encounter Summary ---
Author Organization [facility] Address [address] [place] [address] Care Team Providers Care Cvicu Rn Name Role Phone Lolly Oliveira MD Primary Care Provider [phone] Encounter Details Date Type Department Care Team (Late st Contact Info) Description 11/13/2020 Lab Requisition [facility] Pathology & Laboratory Medicine - [address] [address] Outr Resulting Lab, Provider Social History Tobacco [...] GENER AL ORDERABLES Final Result [facility] [address] [place] [address] * COVID-19 TESTING (11/13/2020 7:30 EDT) COVID-19 rt-PCR Result Negative Negative 11/14/2020 11:46 EDT [facility] Comment: This test has [...] performed using the med SARS-CoV-2 assay ([employer] on the Med 6800 System Performing Lab Med 68[address] [facility] Lab 11/14/2020 11:46 EDT [facility] Swab 11/13/2020 7:30 EDT 11/13/2020 20:57 EDT us Provider Outr Resulting Lab MICROBIOLOGY - GENER AL ORDERABLES Final Result Performing Organization Address [facility] Co de Phone Number [facility] [address] [place] [address] documented in this encounter Visit Diagnoses Not on filedocumented in this encounter Care Teams Cvicu Rn Relationship Specialty Start Date End Date Lolly Oliveira MD [address] [place] [address] PCP - General 11/13/08 documented as of this encounter
--- OUTSIDE RECORDS SUMMARY | 2024-04-12 11:11 | XMS_ITS | Encounter Summary ---
Author Organization [facility] Address [address] [place] [address] Care Team Providers Care Tower Hand Name Role Phone Lolly Oliveira MD Primary Care Provider [phone] Encounter Details Date Type Department Care Team (Late st Contact Info) Description 04/25/2009 Orders Only [facility] Laboratory Services - [facility] ([facility] [address] [place], [place] [id number] Lolly Oliveira MD [address] [place], [place] [id number] Social History Tobacco Use Types Packs/Day Years [...] ? JING ALVARENGA ? Accession #: ? [id number] ? : ? 1950 (Age: 58) ??F [...] ORDERABLES Final Resu lt Performing Organization Address [facility]/State/ZIP Co de Phone Number [facility] [address] [place] [address] documented in this encounter Visit Diagnoses Not on filedocumented in this encounter Care Teams Tower Hand Relationship Specialty Start Date End Date Lolly Oliveira MD [address] [place] [address] PCP - General 11/13/08 documented as of this encounter
--- OUTSIDE RECORDS SUMMARY | 2024-04-12 11:11 | XMS_ITS | Encounter Summary ---
Author Organization [facility] Address [address] [place] [address] Care Team Providers Care Composite Science Teacher Name Role Phone Lolly Oliveira MD Primary Care Provider [phone] Encounter Details Date Type Department Care Team (Late st Contact Info) Description 06/16/2012 Results Only [facility] Laboratory Services - [facility] [place] [address] [place], [place] [id number] Lolly Oliveira MD [address] [place], [place] [id number] Social History Tobacco Use Types Packs/Day Years [...] ? JING ALVARENGA ? Accession #: ? [id number] : ? 1950 (Age: 61) ??F ?Collect [...] ORDERABLES Final Resu lt [facility] [address] [place] [address] documented in this encounter Visit Diagnoses Not on filedocumented in this encounter Care Teams Composite Science Teacher Relationship Specialty Start Date End Date Lolly Oliveira MD [address] [place] [address] PCP - General 11/13/08 documented as of this encounter
--- OUTSIDE RECORDS SUMMARY | 2024-04-12 11:11 | XMS_ITS | Encounter Summary ---
Author Organization [facility] Address [address] [place] [address] Care Team Providers Care Scrap Sorter Name Role Phone Lolly Oliveira MD Primary Care Provider [phone] Encounter Details Date Type Department Care Team (Late st Contact Info) Description 03/06/2003 Results Only [facility] conversion [address] [place] [address] Lolly Oliveira MD [address] [place], [place] [phone] Social History Tobacco Use Types Packs/Day Years [...] ORDERABLES Final Resu lt [facility] [address] [place] [address] documented in this encounter Visit Diagnoses Not on filedocumented in this encounter Care Teams Scrap Sorter Relationship Specialty Start Date End Date Lolly Oliveira MD [address] [place] [address] PCP - General 11/13/08 documented as of this encounter
--- OUTSIDE RECORDS SUMMARY | 2024-04-12 11:11 | XMS_ITS | Encounter Summary ---
Author Organization [facility] Address [facility] [place] [address] Care Team Providers Care Dump Motorman Name Role Phone Lolly Oliveira MD Primary Care Provider [phone] Encounter Details Date Type Department Care Team (Late st Contact Info) Description 03/15/2023 Orders Only Cardiology at [address] [address] Lalit Mcmahon MD [facility] [address] Nonischemic cardiomyopathy; Biventricular ICD (implantable cardioverter-defibrill ator) [...] AM EST Hospital Encounter Non-[place]vasive [place] [address] Arrived documented as of this encounter Visit Diagnoses Diagnosis Nonischemic cardiomyopathy Other primary cardiomyopathies Biventricular ICD (implantable cardioverter-defibrillator) in place documented in this encounter Care Teams Dump Motorman Relationship Specialty Start Date End Date Lolly Oliveira MD [address] [place] [address] PCP - General 07/17/13 documented as of this encounter
--- OUTSIDE RECORDS SUMMARY | 2024-04-12 11:12 | XMS_ITS | Encounter Summary ---
Author Organization [facility] [place] [address] Care Team Providers Care Loss Prevention Lead Name Role Phone Unavailable Primary Care Provider Unavailabl e Encounter Details Date Type Department Care Team (Late st Contact Info) Description 07/14/2013 External Results XRay at [address] [place] [address] Provider, Scanning Social History Tobacco Use Types [...] AM EST Hospital Encounter Non-Invasive Cardiology Lab [facility] [place] [address] Arrived documented as of this encounter Procedures [...]
--- OUTSIDE RECORDS SUMMARY | 2024-04-12 11:12 | XMS_ITS | Encounter Summary ---
[place] [address] Care Team Providers Care Railcar Carpenter Name Role Phone Lolly Oliveira MD Primary Care Provider [phone] Encounter Details Date Type Department Care Team [...] on filedocumented in this encounter Care Teams Railcar Carpenter Relationship Specialty Start Date End Date Lolly Oliveira MD [address] [place] [address] PCP - General 07/17/13 documented as of this encounter
--- OUTSIDE RECORDS SUMMARY | 2024-04-12 11:12 | XMS_ITS | Encounter Summary ---
Author Organization [facility] [place] [address] Care Team Providers Care Education Associate Name Role Phone Lolly Oliveira MD Primary Care Provider [phone] Reason for Visit * Reason Onset Date Comments Pre Procedure Call 07/01/2022 Encounter Details Date Type Department Care Team (Late st Contact Info) Description 07/01/2022 Telephone Cardiology at [address] [phone] Rosenda Sutton RN Pre Procedure Call Social History Tobacco Use Types Packs/Day Years Used Date Smoking Tobacco: Never Sex and Gender Information Value Date Recorded Sex Assigned at Not on file Gender Identity Not on file Sexual Orientation Not on file documented as of this encounter Miscellaneous Notes * Telephone Encounter - Rosenda Sutton RN - 07/01/2022 9:30 AM EDTSummary: Pre Procedure Call: BROACHING MACHINE OPERATOR implant EP TUBE COVERER COORDINATION CHECKLIST Patient Name: Luna Mott Patient Performing Park Warden: Lalit Mcmahon Referring Provider: Lolly Oliveira Date of Procedure: 07/23/22 Arrival Time/ Case Time: 12:00 pm / 1:00 pm Check In Location: Facility Sales And Admin Desk 4W Date Patient was Called: 07/01/22 Procedure: BROACHING MACHINE OPERATOR Company: [employer] Type: BROACHING MACHINE OPERATOR-D Laterality: LEFT Orders: Yes Lab [...] overnight , understands that they will need uke driver on day of discharge Notified pt that Goff catheter may be placed on day of procedure depending on type & duration of case. documented in this encounter Plan of Treatment Upcoming Encounters Date Type Department Care Team (Late st Contact Info) Description 04/15/2024 10:00 AM [facility] Hospital Encounter Non-[place] [address] Arrived documented as of this encounter Visit Diagnoses Not on filedocumented in this encounter Care Teams Education Associate Relationship Specialty Start Date End Date Lolly Oliveira MD [address] [place] [address] PCP - General 07/17/13 documented as of this encounter
--- OUTSIDE RECORDS SUMMARY | 2024-04-12 11:12 | XMS_ITS | Encounter Summary ---
Author Organization [facility] [place] [address] Care Team Providers Care Assistant Media Buyer Name Role Phone Lolly Oliveira MD Primary Care Provider [phone] Encounter Details Date Type Department Care Team (Latest Contact Info) Description 07/17/2013 8:40 AM EDT - 07/17/2013 11:59 PM EDT Hospital Encounter XRay at [address] [place] [address] [address], [facility] Discharge Disposition: Home Social [...] Hospital Encounter Non-[place] [address] Arrived documented as of this encounter Visit Diagnoses Not on filedocumented in this encounter Care Teams Assistant Media Buyer Relationship Specialty Start Date End Date Lolly Oliveira MD [address] [place] [address] PCP - General 07/17/13 documented as of this encounter
--- OUTSIDE RECORDS SUMMARY | 2024-04-12 11:12 | XMS_ITS | Encounter Summary ---
Author Organization [facility] [place] [address] Care Team Providers Care Mold Tooling Technician Name Role Phone Lolly Oliveira MD Primary Care Provider [phone] Reason for Referral * Diagnostic Test (Routine) - Closed Specialty Diagnoses / Procedures Referred By Contac t Referred To Contact Radiology Diagnoses Left bundle branch block Nonischemic cardiomyopathy Procedures MRI Cardiac Morphology Function With Flow Velocity Quantification wwo Contrast MRI Cardiac Morphology Function wwo Contrast Lalit Mcmahon MD [facility] [place] [address] [place] [address] Referral ID Status Reason Start Date Expiration Date V isits Requested Visits Authorized [id number] Closed Specialty Service Requested 05/06/2022 11/07/2023 2 1 Encounter Details Date Type Department Care Team (Late st Contact Info) Description 05/06/2022 Orders Only Cardiology at [address] [address] Lalit Mcmahon MD [facility] [place] [address] Left bundle branch block; Nonischemic cardiomyopathy Social [...] Hospital Encounter Non-[place] [address] Arrived documented as of this encounter Results [...] cardiomyopathies documented in this encounter Care Teams Mold Tooling Technician Relationship Specialty Start Date End Date Lolly Oliveira MD [address] [place] [address] PCP - General 07/17/13 documented as of this encounter
--- OUTSIDE RECORDS SUMMARY | 2024-04-12 11:12 | XMS_ITS | Encounter Summary ---
[place] [address] Care Team Providers Care Press Tender Long Goods Name Role Phone Lolly Oliveira MD Primary Care Provider [phone] Encounter Details Date Type Department Care Team (Late st Contact Info) Description 07/17/2013 [place] [address] Lolly Oliveira MD [address] [place], [place] [id number] Social History Tobacco Use Types Packs/Day Years [...] AM EST Hospital Encounter Non-Invasive [place] [address] Arrived documented as of this encounter Procedures Procedure Name Priority Date/Time Associated Diagnosis Comments REQUEST FOR 2ND READ MAMMO Routine 07/17/2013 8:45 AM EDT documented in this encounter Results * Request for 2nd read Mammo (07/17/2013 8:45 AM EDT) Anatomical Region Laterality Modality Other 07/17/2013 8:45 AM EDT Narrative 07/17/2013 3:57 PM EDT INTERPRETATION OF OUTSIDE MAMMOGRAMS (PERFORMED ON 07/06/13 AND 07/14/13) FROM [facility] DATED 07/17/13: ?? DIAGNOSTIC IMAGING [...] OUTSIDE MAMMOGRAMS (PERFORMED ON 07/06/13 AND 07/14/13) [facility] DATED 07/17/13: DIAGNOSTIC IMAGING SUMMARY: [...] filedocumented in this encounter Care Teams Press Tender Long Goods Relationship Specialty Start Date End Date Lolly Oliveira MD [address] [place] [address] PCP - General 07/17/13 documented as of this encounter
--- OUTSIDE RECORDS SUMMARY | 2024-04-12 11:12 | XMS_ITS | Encounter Summary ---
Author Organization [facility] [place] [address] Care Team Providers Care Computer Hardware Technician Name Role Phone Lolly Oliveira MD Primary Care Provider [phone] Reason for Visit * Diagnostic Test (Routine) - Closed Specialty Diagnoses / Procedures Referred By Contac t Referred To Contact Radiology Diagnoses Left bundle branch block Nonischemic cardiomyopathy Procedures MRI Cardiac Morphology Function With Flow Velocity Quantification wwo Contrast MRI Cardiac Morphology Function wwo Contrast Lalit Mcmahon MD [facility] [place] [address] [facility] [place] [address] Referral ID Status Reason Start Date Expiration Date V isits Requested Visits Authorized [id number] Closed Specialty Service Requested 05/06/2022 11/07/2023 2 1 Encounter Details Date Type Department Care Team (Latest Contact Info) Description 07/14/2022 9:09 AM EDT - 07/14/2022 11:59 PM EDT Hospital [place] [address] Lalit Mcmahon MD [facility] [place] [address] Discharge Disposition: Home Social History Tobacco Use [...] with spacer fluticasone propionate (Flonase) 50 mcg/actuation [place], Suspension 1 spray by Each Nare route [...] AM EST Hospital Encounter Non-Invasive [place] [address] Arrived documented as of [...] documented in this encounter Care Teams Computer Hardware Technician Relationship Specialty Start Date End Date Lolly Oliveira MD [address] [place] [address] PCP - General 07/17/13 documented as of this encounter
--- OUTSIDE RECORDS SUMMARY | 2024-04-12 11:12 | XMS_ITS | Encounter Summary ---
Author Organization [facility] [place] [address] Care Team Providers Care Woodwork Teacher Name Role Phone Lolly Oliveira MD Primary Care Provider [phone] Encounter Details Date Type Department Care Team (Late st Contact Info) Description 04/01/2021 3:30 PM EST Office Visit Dermatology at [address] [phone] Clay Ramírez MD [address], [place] [address] Psoriasis, guttate Social History Tobacco Use Types [...] AM EST Hospital Encounter [place] [address] Arrived documented as of this encounter Visit Diagnoses Diagnosis Psoriasis, guttate Other psoriasis documented in this encounter Care Teams Woodwork Teacher Relationship Specialty Start Date End Date Lolly Oliveira MD [address] [place] [address] PCP - General 07/17/13 documented as of this encounter
--- OUTSIDE RECORDS SUMMARY | 2024-04-12 11:12 | XMS_ITS | Encounter Summary ---
Author Organization [facility] [place] [address] Care Team Providers Care Printing Table Hand Name Role Phone Lolly Oliveira MD Primary Care Provider [phone] Reason for Referral * Consultation (Routine) - Closed Specialty Diagnoses / Procedures Referred By Contact Referred To Contact Electrophysiology / Cardiology Diagnoses Left bundle branch block Cardiomyopathy, unspecified type AT MINIMUM PT NEEDS CONSIDERATION FOR DEFIBRILLATOR, ALSO CANDIDATE FOR RESYNCHRONIZATION THERAPY HER QRS IS >0.16 Lolly Oliveira MD [address] [place] [address] [facility] Cardiology [address] [place] [phone] Referral ID Status Reason Start Date Expiration Date V isits Requested Visits Authorized [id number] Closed Consult, Test & Treat PCP Updated and/or Approved 04/30/2022 04/30/2023 6 6 Encounter Details Date Type Department Care Team (Latest Contact Info) Description 04/30/2022 Transcribe Orders eDH Incoming Referrals [phone] Lolly Oliveira MD [address] [place], [place] [id number] Left bundle branch block; Cardiomyopathy, unspecified type [...] AM EST Hospital Encounter Non-Invasive [place] [address] Arrived Scheduled Referrals Name Type Priority Associated Diagnoses Orde r Schedule Referral to Cardiology Outpatient Referral Routine Left bundle branch block Cardiomyopathy, Unspecified Type Ordered: 04/30/2022 documented as of this encounter Visit Diagnoses Diagnosis Left bundle branch block Other left bundle branch block Cardiomyopathy, unspecified type documented in this encounter Care Teams Printing Table Hand Relationship Specialty Start Date End Date Lolly Oliveira MD [address] [place] [address] PCP - General 07/17/13 documented as of this encounter
--- OUTSIDE RECORDS SUMMARY | 2024-04-12 11:12 | XMS_ITS | Encounter Summary ---
Author Organization [facility] [place] [address] Care Team Providers Care Copywriter Name Role Phone Lolly Oliveira MD Primary Care Provider [phone] Encounter Details Date Type Department Care Team (Latest Contact Info) Description 07/26/2013 9:45 AM EDT - 07/26/2013 11:59 PM EDT Hospital [place] [address] Mammographic microcalcification Social History Tobacco Use Types [...] AM EST Hospital Encounter Non-Invasive [place] [address] Arrived documented as of this encounter Procedures [...] microcalcification documented in this encounter Care Teams Copywriter Relationship Specialty Start Date End Date Lolly Oliveira MD [address] [place] [address] PCP - General 07/17/13 documented as of this encounter
--- OUTSIDE RECORDS SUMMARY | 2024-04-12 11:12 | XMS_ITS | Encounter Summary ---
Author Organization [facility] [place] [address] Care Team Providers Care Card Reader Name Role Phone Lolly Oliveira MD Primary Care Provider [phone] Reason for Referral * Diagnostic Test (Routine) - Closed Specialty Diagnoses / Procedures Referred By Contac t Referred To Contact Radiology Diagnoses Left bundle branch block Nonischemic cardiomyopathy Procedures MRI Cardiac Morphology Function With Flow Velocity Quantification [facility] Contrast MRI Cardiac Morphology Function wwo Contrast Lalit Mcmahon MD [facility] [place] [address] [place] [address] Referral ID Status Reason Start Date Expiration Date V isits Requested Visits Authorized [id number] Closed Specialty Service Requested 05/06/2022 11/07/2023 2 1 Reason for Visit * Diagnostic Test (Routine) - Closed Specialty Diagnoses / Procedures Referred By Contac t Referred To Contact Radiology Diagnoses Left bundle branch block Nonischemic cardiomyopathy Procedures MRI Cardiac Morphology Function With Flow Velocity Quantification o Contrast MRI Cardiac Morphology Function wwo Contrast Lalit Mcmahon MD [facility] [place] [address] [place] [address] Referral ID Status Reason Start Date Expiration Date V isits Requested Visits Authorized [id number] Closed Specialty Service Requested 05/06/2022 11/07/2023 2 1 Encounter Details Date Type Department Care Team (Latest Contact Info) Description 07/14/2022 9:08 AM EDT Hospital Encounter MRI at [facility] [place] [phone] Lalit Mcmahon MD [facility] [place] [address] Left bundle branch block; Nonischemic cardiomyopathy Discharge [...] with spacer fluticasone propionate (Flonase) 50 mcg/actuation [place], Suspension 1 spray by Each Nare route [...] 71 y.o. : 1950 [address], located [facility] [address] Female [phone] (home) No relevant phone numbers on file. Lolly Oliveira MD None Allergies Allergen Reactions ??? Sulfa (Sulfonamide Antibiotics) Date/Time of call: July 07, 2022/11:03 AM/ PREVIOUS MRI SCAN? HEIGHT: WEIGHT: SCHEDULED SCAN: MRI CARDIAC MORPHOLOGY FUNCTION WITH FLOW VELOCITY QUANTIFICATION WWO CONTRAST [[id number]] Order Questions Answers Where will study be performed? [facility] Radiology [120] SUBJECTIVE: Very Claustrophobic CAN [...] ( KV ) You must have a spike driver present when you check in. This patient has been informed that they require a spike driver to drive them home after this procedure. In the absence of a spike driver, IR will not be able to sedate for your scan. Pt verbalized understanding of these instructions during the pre-procedure education via phone. Yes Name of spike driver: Daughter Phone number: PRIOR SCAN DATE/S SEDATION TYPE SUCCESSFUL 07/14/22 MRI Cardiac Morphology Function with Flow Velocity Quantification wwo Contrast Ativan 1mg x 1 dose Pass Revised 08/03/17 documented in this encounter Plan of Treatment Upcoming Encounters Date Type Department Care Team (Late st Contact Info) Description 04/15/2024 10:00 AM [facility] Hospital Encounter [place] [address] Arrived documented as of this encounter Procedures [...] have questions please contact the health pediatric acute care unit nurse that requested your imaging first. ? Electronically signed by: Greyson Herron MD, [facility] ([phone]), at 07/15/2022 9:53 AM Narrative 07/15/2022 9:53 [...] who have questions please contactthe health pediatric acute care unit nurse that requested your imaging [...] mg documented in this encounter Care Teams Card Reader Relationship Specialty Start Date End Date Lolly Oliveira MD [address] [place] [address] PCP - General 07/17/13 documented as of this encounter
--- OUTSIDE RECORDS SUMMARY | 2024-04-12 11:12 | XMS_ITS | Encounter Summary ---
Author Organization [facility] [place] [address] Care Team Providers Care Garment Steamer Name Role Phone Lolly Oliveira MD Primary Care Provider [phone] Reason for Visit * Auth/Cert (Routine) Specialty Diagnoses / Procedures Referred By Contac t Referred To Contact Diagnoses Left bundle-branch block, unspecified Other cardiomyopathies Left bundle branch block [I44.7]Nonischemic cardiomyopathy [I42.8] Procedures PRG CATH PLMT LEFT HEART CATH & ARTS W/INJ & ANGIO IMG S&I ELECTROPHYSIOLOGY PROCEDURE Lalit Mcmahon MD [facility] [place] [address] [facility] Referral ID Status Reason Start Date Expiration Date Visits Re quested Visits Authorized [id number] 1 1 Encounter Details Date Type Department Care Team (Late st Contact Info) Description 07/23/2022 1:00 PM EDT - 07/23/2022 5:30 PM EDT Surgery [place] [address] Lalit Mcmahon MD [facility] [place] [address] ELECTROPHYSIOLOGY PROCEDURE Social History Tobacco Use Types [...] Luna Mott Patient Age: 71 y.o. Language: Northern Irish Race: White Ethnicity: Not nor Admit date: 07/23/2022 Discharge date and time: 07/24/22 Attending Physician: Lalit Mcmahon MD Discharge Physician: Lalit Mcmahon MD Follow-up Recommendations for Providers: - s/p GAS MAIN FITTER-D implant - post implant QRS 130 ms [...] Solar lentigo Operations/Major Procedures: 07/23/22: [facility] GAS MAIN FITTER-D implant History of Presentation: 71 y.o. female with a history of HFrEF, LBBB, QRS >150, NYHA II who is POD#1 of GAS MAIN FITTER-D implant ([employer]). Hospital Course: Elective admission for GAS MAIN FITTER-D implant Admitted post-implant for pain management, telemetry [...] (heart failure with reduced ejection fraction) [I50.20] GAS MAIN FITTER-D implant Admission Condition: good Indication for Admission: [...] g Refills: 3 fluticasone propionate 50 mcg/actuation [place], Suspension Commonly known as: Flonase 1 spray [...] F. The office scheduling phone number is [phone]. ARM MOVEMENT RESTRICTIONS POST-IMPLANT - Do not [...] please call the Cardiac ElectrophysiologyTriage Nurse at [phone], option 3. General Instructions None Discharge References/Attachments [...] F. The office scheduling phone number is [phone]. ARM MOVEMENT RESTRICTIONS POST-IMPLANT - Do not [...] please call the Cardiac ElectrophysiologyTriage Nurse at [phone], option 3. documented in this encounter Medications [...] with spacer fluticasone propionate (Flonase) 50 mcg/actuation [place], Suspension 1 spray by Each Nare route [...] Cardiac Electrophysiology Post-Implant Device Interrogation Luna Mott [id number] 07/24/2022 History: Luna Mott is a 71 y.o. female with a history of HFrEF, LBBB, QRS >150, NYHA II who is POD#1 of GAS MAIN FITTER-D implant ([employer]). Overall feels well this morning. Ready [...] WOB Neuro- A&Ox3 Device Interrogation: Data ?? Supervisor Corduroy Cutting Model # Serial # Generator [employer] [id number] Atrial Lead [employer] [id number] [id number] RV Lead [employer] 0672 [id number] LV Lead [employer] [id number] ?? Diagnostics Pacing Mode: DDD 60-130 Underlying Rhythm: [place] Atrial Episodes: None Ventricular Episodes: None FINAL PROGRAMMING: Pacing: Mode Lower rate (ppm) Upper rate (ppm) ?? DDD 60 130 VF: Rate (bpm) #Antitachycardia pacing First shock energy (J) ?? 200 Quick convert 41 VT: 170 Monitor only Monitor only ? Battery and Leads Impedances (ohms) Sensing (mV) Thresholds HV RA RV LV RA RV LV RA RV LV 73 190 661 4733 (LVa) 7.7 13.1 >25 0.4V @ 0.4 ms 0.4V @ 0.4 ms 0.5 V @ 1.0 ms POD#1 CXR: All leads in nominal positioning Impression: 71 y.o. female who is s/p GAS MAIN FITTER-D implant for LBBB, NYHA II, HFrEF. - [...] [facility]) Fadi Nunez MD 07/24/2022 Pager: [phone] I met with the patient today and [...] agreement. ? Dr. Lalit Mcmahon, electrophysiology attending ([id number]) * Zaria Wright RN - 07/23/2022 8:28 [...] HF, QRS > 150 ms presents for GAS MAIN FITTER-D placement. ROS: Denies recent fevers or chills [...] 0.9) flush 5 mL 5 mL Intravenous [id number] ramos MD ??? sodium chloride 0.9 % [...] HF, QRS > 150 ms presents for GAS MAIN FITTER-D placement. Backup would be LBBAP lead. Antibiotics: cefazolin Rationales for, intended benefits and potential risk of planned procedures reviewed. The patient indicated understanding and agreement with the plan. Informed consent signed. Procedure checklist completed. Fadi Nunez MD Cardiac Electrophysiology Fellow [facility] Pager [phone] 07/23/2022 I met with the patient today [...] agreement. ? Dr. Lalit Mcmahon, electrophysiology attending ([id number]) documented in this encounter Miscellaneous Notes * Brief Op Note - Lalit Mcmahon MD - 07/23/2022 4:04 PM EDT Brief Operative Note Patient Name: Luna Mott : [id number] MR#: [id number] Case Date: 07/23/2022 Surgeon: Surgeon(s) and Role: [...] Non-[place] [address] Arrived Scheduled Orders Name Type Priority Associated Diagnoses Orde r Schedule EKG 12 Lead ECG Routine Cardiac resynchronization therapy defibrillator (GAS MAIN FITTER-D) in place One Time for 1 Occurrences [...] (Bezet) 522 ms MUSE SYSTEM Calculated R [place] 78 degrees MUSE SYSTEM Calculated T [place] -71 degrees MUSE SYSTEM INTERPRETATION AV dual-paced [...] questions please contact the health wound care technician that requested your imaging first. ? Electronically signed by: Kwame Vargas MD, [facility] ([phone]), at 07/24/2022 6:43 AM Narrative 07/24/2022 6:43 [...] have questions please contactthe health wound care technician that requested your imaging first. Electronically signed by: Kwame Vargas MD, [facility]([phone]), at 07/24/2022 6:43 AM Lalit Mcmahon MD IMG DX ORDERABLES * ELECTROPHYSIOLOGY PROCEDURE (07/23/2022 1:11 PM EDT) Anatomical Region Laterality Modality Other Narrative 07/23/2022 4:24 PM EDT Table formatting from the original result was not included. BIVENTRICULAR ICD IMPLANTATION Tar Pot Man: Lalit Mcmahon MD Fellow: Fadi Nunez MD [...] lateral branch of the CS in the [place] view. This branch was cannulated with [...] the entire procedure. LEAD AND GENERATOR DATA: Supervisor Corduroy Cutting Model # Serial # Generator [employer] [id number] Atrial Lead [employer] 7841 [id number] RV Lead [employer] 0672 [id number] LV Lead [employer] [id number] [id number] PACE/SENSE DATA: Sensed wave (mV) Threshold (V) [...] (cGycm2) 300 CONCLUSIONS: Successful implantation of a [employer] biventricular ICD for primary prevention and treatment of symptoms related to congestive heart failure. Follow up in EP clinic in 1-2 months. Procedures performed: new ICD system ( cpt 89648-C6); implant LV lead at time of ICD insertion (cpt 30894) I have read, edited and approve of this report: Lalit Mcmahon MD [facility] Cardiac Electrophysiology 07/23/2022 4:22 PM Procedure Note Lalit Mcmahon MD - 07/23/2022 BIVENTRICULAR ICD IMPLANTATION [place] Man: Lalit Mcmahon MD Fellow: Fadi Nunez MD [...] appropriate lateralbranch of the CS in the [place] view. This branch was cannulated with [...] in the entireprocedure. LEAD AND GENERATOR DATA: Supervisor Corduroy Cutting Model # Serial # Generator [employer] [id number] Atrial Lead [employer] 7841 [id number] RV Lead [employer] 0672 086642 LV Lead [employer] 4674 [id number] PACE/SENSE DATA: Sensed wave (mV) Threshold (V) [...] (cGycm2) 300 CONCLUSIONS: Successful implantation of a [employer] biventricular ICD forprimary prevention and treatment of symptoms related to congestive heartfailure. Follow up in EP clinic in 1-2 months. Procedures performed: new ICD system ( cpt 85497-P7); implant LV lead attime of ICD insertion (cpt 96495) I have read, edited and approve of this report: Lalit Mcmahon MD S Cardiac Electrophysiology 07/23/2022 4:22 PM Lalit Mcmahon MD EP PROCEDURE ORDERAB LES * POCT Glucose (07/23/2022 12:54 PM EDT) [facility] Signature Glucose, POC 83 65 - 199 mg/dL [facility] Comment: Supplemental ranges: <140 mg/dL before meals <180 mg/dL all other times of the day Blood 07/23/2022 12:5 4 PM EDT 07/23/2022 12:54 PM EDT Lalit Mcmahon MD POINT OF CARE TEST O RDERABLES Performing Organization Address City/[facility]/ZIP Co de Phone Number [facility] [place] [address] * EKG 12 Lead (07/23/2022 12:33 PM EDT) Ventricular rate 72 BPM MUSE SYSTEM Atrial Rate 72 BPM MUSE SYSTEM P-R Interval 158 ms MUSE SYSTEM QRS Duration 176 ms MUSE SYSTEM Q-T Interval 458 ms MUSE SYSTEM QTC Calculated (Bezet) 501 ms MUSE SYSTEM Calculated P [place] 34 degrees MUSE SYSTEM Calculated R [place] 12 degrees MUSE SYSTEM Calculated T [place] -173 degrees MUSE SYSTEM INTERPRETATION Normal sinus rhythm Left bundle branch block Abnormal ECG No previous ECGs available Confirmed by MD Salome, Lalit ([id number]) on 07/23/2022 1:19:03 PM MUSE SYSTEM 07/23/2022 12:3 3 PM EDT 07/23/2022 1:19 PM EDT Lalit Mcmahon MD ECG ORDERABLES Performing Organization Address [facility]/ZIP Co de Phone Number MUSE SYSTEM * Differential, Automated (07/23/2022 11:55 AM EDT) Neutrophil % 62.6 % [facility] Neutrophil Absolute 4.14 1.70 - 6.10 x10(3)/[facility] Lymph % 27.0 % [facility] Lymphocytes Abs 1.8 0.9 - 3.2 x10(3)/[facility] Monocyte % 7.3 % [facility] Monocyte Abs 0.5 0.3 - 0.9 x10(3)/[facility] Eos % 2.3 % [facility] Eosinophils Abs 0.2 0.0 - 0.4 x10(3)/[facility] LAB[facility] Basophil % 0.6 % [facility] ITAL LABORAT[facility] Baso Absolute 0.0 0.0 - 0.1 x10(3)/[facility] Immature Gran % 0.20 % [facility] Comment: Immature granulocytes(IG's)percentage and absolute count will include metamyelocytes, myelocytes, and promyelocytes. Blood smears from CBCs yielding IG's will be scanned manually for concordance. If this scan disagrees with the automated IG or if promyelocytes are noted, a manual differential will be performed. Immature Gran Absolute 0.01 0.00 - 0.04 x10(3)/[facility] Blood 07/23/2022 11:5 5 AM EDT 07/23/2022 12:07 PM EDT Narrative Resulting Agency Comment Spec In Lab Lalit Mcmahon MD HEMATOLOGY ORDERABLE S [facility] [place] [address] * Hemogram (07/23/2022 11:55 AM EDT) White Blood Cell 6.6 4.0 - 9.5 x10(3)/[facility] Red Blood Cell 4.50 4.00 - 5.21 x10(6)/[facility] Hemoglobin 13.7 11.7 - 15.5 g/dL [...] HOSPITAL LABORATORY Platelet 193 145 - 357 x10(3)/[facility] RDW Standard Deviation 45.5 37.0 - 46.0 fL [facility] RDW coefficient of variation 13.2 11.5 - 14.1 % [facility] Mean Platelet Volume 9.5 7.6 - 12.9 fL [facility] NRBC% auto 0.0 % [facility] ITAL LABORATORY NRBC Absolute 0.000 0.000 - 0.000 x10(3)/[facility] Blood 07/23/2022 11:5 5 AM EDT 07/23/2022 12:07 PM EDT Narrative Resulting Agency Comment Spec In Lab Lalit Mcmahon MD HEMATOLOGY ORDERABLE S [facility] [place] [address] * (ABNORMAL) BMP w/fasting Glucose (07/23/2022 11:55 [...] Urea Nitrogen 23(H) 8 - 18 mg/dL [facility] Creatinine 1.07 0.70 - 1.20 mg/dL [facility] Sodium 141 135 [...] questions. Chloride 106 98 - 107 mmol/L [facility] Carbon Dioxide 26 22 - 31 mmol/L [facility] Anion Gap 9 5 - 15 mmol/L [facility] Calcium 9.7 8.5 - 10.5 mg/dL [facility] Est Glomerular Filtration Rate 55(L) >=60 mL/min/1. 73 m?? [facility] Comment: This patient's [...] Mcmahon MD CHEMISTRY ORDERABLES Performing Organization Address [facility] Co de Phone Number [facility] [place] [address] * Prothrombin Time (07/23/2022 11:55 AM EDT) [...] MD HEMATOLOGY ORDERABLE S Performing Organization Address City/[facility] Co de Phone Number [facility] [place] [address] documented in this encounter Visit Diagnoses Diagnosis HFrEF (heart failure with reduced ejection fraction)- Primary Left bundle branch block Other left bundle branch block Nonischemic cardiomyopathy Other primary cardiomyopathies Cardiac resynchronization therapy defibrillator (GAS MAIN FITTER-D) in place Left bundle branch block Other [...] documented in this encounter Care Teams Garment Steamer Relationship Specialty Start Date End Date Lolly Oliveira MD [address] [place] [address] PCP - General 07/17/13 documented as of this encounter
--- OUTSIDE RECORDS SUMMARY | 2024-04-12 11:12 | XMS_ITS | Encounter Summary ---
Author Organization [facility] [place] [address] Care Team Providers Care Wire Galvanizer Name Role Phone Lolly Oliveira MD Primary Care Provider [phone] Encounter Details Date Type Department Care Team (Latest Contact Info) Description 07/20/2013 9:26 AM EDT - 07/20/2013 11:59 PM EDT Hospital [place] [address] CLINIC, Lolly So MD [address] [place], [place] [id number] Mammographic microcalcification Discharge Disposition: Home Social History [...] AM EST Hospital Encounter Non-[place] [address] Arrived documented as of this encounter Procedures [...] not layer and, therefore, are not security systems sales representative of milk of calcium. Again, [...] not layer and, therefore, are not security systems sales representative of milk of calcium. Again, these have an amorphous andpunctate appearance and remain indeterminate. Stereotactic guided biopsy isrecommended. Alia Fraire MD IMG MAMMO ORDERABLES documented in this encounter Visit Diagnoses Diagnosis Mammographic microcalcification documented in this encounter Care Teams Wire Galvanizer Relationship Specialty Start Date End Date Lolly Oliveira MD [address] [place] [address] PCP - General 07/17/13 documented as of this encounter
--- OUTSIDE RECORDS SUMMARY | 2024-04-12 11:12 | XMS_ITS | Encounter Summary ---
Author Organization [facility] [place] [address] Care Team Providers Care Practice Managers Name Role Phone Lolly Oliveira MD Primary Care Provider [phone] Encounter Details Date Type Department Care Team (Late st Contact Info) Description 10/09/2021 Telephone Dermatology at [address] [address] Nora Meredith LPN Social History [...] [facility] Encounter [place] [address] Arrived documented as of this encounter Visit Diagnoses Not on filedocumented in this encounter Care Teams Practice Managers Relationship Specialty Start Date End Date Lolly Oliveira MD [address] [place] [address] PCP - General 07/17/13 documented as of this encounter
--- OUTSIDE RECORDS SUMMARY | 2024-04-12 11:12 | XMS_ITS | Encounter Summary ---
Author Organization Formerly [facility] Address [facility] [address] Care Team Providers Care Clinical Dermatologist Name Role Phone Lolly Oliveira MD Primary Care Provider [phone] Reason for Visit * Auth/Cert (Routine) Specialty Diagnoses / Procedures Referred By Contac t Referred To Contact Diagnoses Left bundle-branch block, unspecified Other cardiomyopathies Left bundle branch block [I44.7]Nonischemic cardiomyopathy [I42.8] Procedures PRG CATH PLMT LEFT HEART CATH & ARTS W/INJ & ANGIO IMG S&I ELECTROPHYSIOLOGY PROCEDURE Lalit Mcmahon MD [facility] [place] [address] [facility] Referral ID Status Reason Start Date Expiration Date Visits Re quested Visits Authorized [id number] 1 1 Encounter Details Date Type Department Care Team (Late st Contact Info) Description 07/23/2022 1:08 PM EDT Anesthesia [place] [address] Monae Gonzalez MD [facility] [place] [address] Maria Elena Snyder CRNA [facility] [place] [address] Anesthesia Record Procedure Summary Procedure Name Responsible [...] 1307; median cubital vein (antecubital fossa), right; zdzu-pmi-vemqjk catheter system; Anatomical Landmarks; 20 gauge; 07/24/22; [...] 1343; metacarpal vein (top of hand), left; oega-pzh-xslnoj catheter system; Anatomical Landmarks; US Not Used; [...] Summary Date: 07/23/22 Room / Location: [facility] A-LAB ROOM 3 / [facility] EP LABS Anesthesia Start: 1308 Anesthesia Stop: 1633 Procedure: ELECTROPHYSIOLOGY PROCEDURE (Left) Diagnosis: Left bundle branch block Nonischemic cardiomyopathy (Left bundle branch block [I44.7]Nonischemic cardiomyopathy [I42.8]) Providers: Lalit Mcmahon MD Responsible Provider: Monae Gonzalez MD Anesthesia Type: general ASA Status: 4 All Anesthesia Providers: Anesthesiologist: Monae Gonzalez MD; Dominique Sen MD MONOTYPE KEYBOARD OPERATOR: Maria Elena Snyder CRNA Vitals Value Taken Time BP 131/46 07/23/22 1700 Temp 36.7 ??C (98.1 ??F) 07/23/22 1627 Pulse 67 07/23/22 1703 Resp 14 07/23/22 1703 SpO2 98 % 07/23/22 1703 Pain Level Vitals shown include unvalidated device data. Patient Location: PACU/[facility] Level of Consciousness: Conscious but [...] and Nonischemic CM (EF 15-20%)who presents for ICEBOX MAN-D. No prior anesthetic records. Pt states that [...] daughter/son and patient who. Plan discussed with MONOTYPE KEYBOARD OPERATOR. Anesthesia Screening documented in this encounter Plan of Treatment Upcoming Encounters Date Type Department Care Team (Late st Contact Info) Description 04/15/2024 10:00 AM [facility] Hospital Encounter Non-Invasive [place] [address] Arrived documented as of this [...] mg documented in this encounter Care Teams Clinical Dermatologist Relationship Specialty Start Date End Date Lolly Oliveira MD [address] [place] [address] PCP - General 07/17/13 documented as of this encounter
--- OUTSIDE RECORDS SUMMARY | 2024-04-12 11:12 | XMS_ITS | Encounter Summary ---
Author Organization [facility] [place] [address] Care Team Providers Care Rehabilitation Services Director Name Role Phone Lolly Oliveira MD Primary Care Provider [phone] Reason for Visit * Reason Comments Psoriasis Encounter Details Date Type Department Care Team (Late st Contact Info) Description 04/09/2022 1:45 PM EST Office Visit Dermatology at [address] [address] Clay Ramírez MD [address] [facility] [place] [address] Psoriasis, guttate Social History Tobacco Use Types [...] AM EST Hospital Encounter Non[place] [address] Arrived documented as of this encounter Visit Diagnoses Diagnosis Psoriasis, guttate Other psoriasis documented in this encounter Care Teams Rehabilitation Services Director Relationship Specialty Start Date End Date Lolly Oliveira MD [address] [place] [address] PCP - General 07/17/13 documented as of this encounter
--- OUTSIDE RECORDS SUMMARY | 2024-04-12 11:12 | XMS_ITS | Encounter Summary ---
Author Organization [facility] [place] [address] Care Team Providers Care Night Filler Name Role Phone Unavailable Primary Care Provider Unavailabl e Encounter Details Date Type Department Care Team (Late st Contact Info) Description 07/14/2013 [place] [phone] Eleno Christian MD Social History Tobacco Use [...] AM EST Hospital Encounter Non-Invasive [place] [address] Arrived documented as of this encounter Visit Diagnoses Not on filedocumented in this encounter
--- OUTSIDE RECORDS SUMMARY | 2024-04-12 11:12 | XMS_ITS | Encounter Summary ---
Author Organization [facility] [place] [address] Care Team Providers Care Valet Parking Attendant Name Role Phone Unavailable Primary Care Provider Unavailabl e Encounter Details Date Type Department Care Team (Late st Contact Info) Description 07/04/2012 [place] [address] Eleno Christian MD Social History Tobacco Use [...] Encounter Non-Invasive [place] [address] Arrived documented as of this encounter Procedures [...]
--- OUTSIDE RECORDS SUMMARY | 2024-04-12 11:12 | XMS_ITS | Encounter Summary ---
Author Organization Formerly [facility], [facility]–[address] [place] [address] Care Team Providers Care Neurodiagnostic Tech Name Role Phone Lolly Oliveira MD Primary Care Provider [phone] Encounter Details Date Type Department Care Team (Latest Contact Info) Description 07/18/2013 [place] [address] Alia Fraire MD Mammographic microcalcification (Primary Dx) [...] [facility] Hospital Encounter Non-[place] [address] Arrived documented as of this encounter Results [...] are present on specimen digital X-ray. A Preen.Merk Eviva-Stereo 13 Cylinder marker clip was placed. [...] calcifications are present on specimendigital X-ray. A Preen.Merk Eviva-Stereo 13 Cylinder marker clip was placed. [...] layer and, therefore, are not sales representative of milk of calcium. Again, [...] layer and, therefore, are not sales representative of milk of calcium. Again, these have an amorphous andpunctate appearance and remain indeterminate. Stereotactic guided biopsy isrecommended. Alia Fraire MD IMG MAMMO ORDERABLES documented in this encounter Visit Diagnoses Diagnosis Mammographic microcalcification- Primary Mammographic microcalcification Mammographic microcalcification Mammographic microcalcification Mammographic microcalcification documented in this encounter Care Teams Neurodiagnostic Tech Relationship Specialty Start Date End Date Lolly Oliveira MD [address] [place] [address] PCP - General 07/17/13 documented as of this encounter
--- OUTSIDE RECORDS SUMMARY | 2024-04-12 11:12 | XMS_ITS | Encounter Summary ---
Author Organization [facility] [place] [address] Care Team Providers Care Poultry Field Service Technician Name Role Phone Lolly Oliveira MD Primary Care Provider [phone] Encounter Details Date Type Department Care Team (Late st Contact Info) Description 07/26/2013 [place] [address] Eleno Christian MD Social History [...] [facility] Hospital Encounter [place] [address] Arrived documented as of this encounter Visit Diagnoses Not on filedocumented in this encounter Care Teams Poultry Field Service Technician Relationship Specialty Start Date End Date Lolly Oliveira MD [address] [place] [address] PCP - General 07/17/13 documented as of this encounter
--- OUTSIDE RECORDS SUMMARY | 2024-04-12 11:12 | XMS_ITS | Encounter Summary ---
Author Organization [facility] [place] [address] Care Team Providers Care Transformation Analyst Name Role Phone Lolly Oliveira MD Primary Care Provider [phone] Reason for Visit * Reason Comments Follow-up Encounter Details Date Type Department Care Team (Late st Contact Info) Description 05/21/2022 8:00 AM EDT Office Visit Dermatology at [address] [phone] Clay Ramírez MD [address] [facility] [place] [address] Psoriasis, guttate Social History Tobacco Use Types [...] [facility] Hospital Encounter Non-[place] [address] Arrived documented as of this encounter Visit Diagnoses Diagnosis Psoriasis, guttate Other psoriasis documented in this encounter Care Teams Transformation Analyst Relationship Specialty Start Date End Date Lolly Oliveira MD [address] [place] [address] PCP - General 07/17/13 documented as of this encounter
--- OUTSIDE RECORDS SUMMARY | 2024-04-12 11:12 | XMS_ITS | Encounter Summary ---
Author Organization [facility] [place] [address] Care Team Providers Care Oncology Social Work Name Role Phone Lolly Oliveira MD Primary Care Provider [phone] Reason for Visit * Reason Comments Follow-up Encounter Details Date Type Department Care Team (Late st Contact Info) Description 07/02/2022 8:00 AM EDT Office Visit Dermatology at [address] [phone] Clay Ramírez MD [address] [facility] [place] [address] Psoriasis, guttate Social History Tobacco Use Types [...] [facility] Hospital Encounter Non-[place] [address] Arrived documented as of this encounter Visit Diagnoses Diagnosis Psoriasis, guttate Other psoriasis documented in this encounter Care Teams Oncology Social Work Relationship Specialty Start Date End Date Lolly Oliveira MD [address] [place] [address] PCP - General 07/17/13 documented as of this encounter
--- OUTSIDE RECORDS SUMMARY | 2024-04-12 11:12 | XMS_ITS | Encounter Summary ---
Author Organization [facility] Address [facility] [place] [address] Care Team Providers Care Certified Financial Planner Name Role Phone Lolly Oliveira MD Primary Care Provider [phone] Encounter Details Date Type Department Care Team (Late st Contact Info) Description 07/16/2022 Telephone Cardiology at [address] [phone] Lalit Mcmahon MD [facility] [place] [address] Social History Tobacco Use Types Packs/Day Years [...] her nonischemic cardiomyopathy. She is scheduled for AQUATICS LIFEGUARD-D implantation next week and looks forward to the procedure. We will see each other next week. Lalit Mmcahon MD [facility] Cardiac Electrophysiology 07/16/2022 8:52 AM documented in this encounter Plan of Treatment Upcoming Encounters Date Type Department Care Team (Late st Contact Info) Description 04/15/2024 10:00 AM EST Hospital Encounter Non-[place] [address] Arrived documented as of this encounter Visit Diagnoses Not on filedocumented in this encounter Care Teams Certified Financial Planner Relationship Specialty Start Date End Date Lolly Oliveira MD [address] [place] [address] PCP - General 07/17/13 documented as of this encounter
--- OUTSIDE RECORDS SUMMARY | 2024-04-12 11:12 | XMS_ITS | Encounter Summary ---
Author Organization [place] [address] Care Team Providers Care Director Of Distance Learning Name Role Phone Lolly Oliveira MD Primary Care Provider [phone] Reason for Visit * Reason Comments Skin Check Encounter Details Date Type Department Care Team (Late st Contact Info) Description 11/23/2014 10:00 AM EDT Office Visit Dermatology at [address] [phone] Clay Ramírez MD [address] [facility] [place] [address] Dermatofibroma; Nevus; Solar lentigo Discharge Disposition: Home [...] [facility] Hospital Encounter [place] [address] Arrived documented as of this encounter Visit Diagnoses Diagnosis Dermatofibroma Benign neoplasm of skin, site unspecified Nevus Benign neoplasm of skin, site unspecified Solar lentigo Other dyschromia documented in this encounter Care Teams Director Of Distance Learning Relationship Specialty Start Date End Date Lolly Oliveira MD [address] [place] [address] PCP - General 07/17/13 documented as of this encounter
--- OUTSIDE RECORDS SUMMARY | 2024-04-12 11:12 | XMS_ITS | Encounter Summary ---
Author Organization [facility] [address] Care Team Providers Care Assistant Football Coach Name Role Phone Lolly Oliveira MD Primary Care Provider [phone] Encounter Details Date Type Department Care Team (Late Contact Info) Description 01/14/2022 Telephone Dermatology at [address] [address] Nora Meredith LPN Social History [...] Encounter Non-Invasive [place] [address] Arrived documented as of this encounter Visit Diagnoses Not on filedocumented in this encounter Care Teams Assistant Football Coach Relationship Specialty Start Date End Date Lolly Oliveira MD [address] [place] [address] PCP - General 07/17/13 documented as of this encounter
--- OUTSIDE RECORDS SUMMARY | 2024-04-12 11:12 | XMS_ITS | Encounter Summary ---
[place] [address] Care Team Providers Care Produce Field Merchandiser Name Role Phone Lolly Oliveira MD Primary Care Provider [phone] Encounter Details Date Type Department Care Team (Late st Contact Info) Description 04/09/2022 Refill Dermatology at [address] [address] Nora Meredith, FAMILY MEMBER CARETAKER Social History Tobacco Use Types Packs/Day Years [facility] Non-Invasive [place] [address] Arrived documented as of this encounter Visit Diagnoses Not on filedocumented in this encounter Care Teams Produce Field Merchandiser Relationship Specialty Start Date End Date Lolly Oliveira MD [address] [place] [address] PCP - General 07/17/13 documented as of this encounter
--- OUTSIDE RECORDS SUMMARY | 2024-04-12 11:12 | XMS_ITS | Encounter Summary ---
[place] [address] Care Team Providers Care Aboriginal Home School Liaison Officer Name Role Phone Lolly Oliveira [...] AM EST Hospital Encounter [place] [address] Arrived documented as of this encounter Visit Diagnoses Not on filedocumented in this encounter Care Teams Aboriginal Home School Liaison Officer Relationship Specialty Start Date End Date Lolly Oliveira MD [address] [place] [address] PCP - General 07/17/13 documented as of this encounter
--- OUTSIDE RECORDS SUMMARY | 2024-04-12 11:12 | XMS_ITS | Encounter Summary ---
Author Organization [facility] [place] [address] Care Team Providers Care Lens Inspector Name Role Phone Lolly Oliveira MD Primary Care Provider [phone] Encounter Details Date Type Department Care Team (Late st Contact Info) Description 06/29/2011 [place] [address] Eleno Christian MD Social History Tobacco Use [...] [facility] Hospital Encounter Non-[place] [address] Arrived documented as of this encounter Procedures [...] filedocumented in this encounter Care Teams Lens Inspector Relationship Specialty Start Date End Date Lolly Oliveira MD [address] [place] [address] PCP - General 07/17/13 documented as of this encounter
--- OUTSIDE RECORDS SUMMARY | 2024-04-12 11:12 | XMS_ITS | Encounter Summary ---
[place] [address] Care Team Providers Care Diet Attendant Name Role Phone Lolly Oliveira MD Primary Care Provider [phone] Encounter Details Date Type Department Care Team [...] AM EST Hospital Encounter Non-[place] [address] Arrived documented as of this encounter Visit Diagnoses Not on filedocumented in this encounter Care Teams Diet Attendant Relationship Specialty Start Date End Date Lolly Oliveira MD [address] [place] [address] PCP - General 07/17/13 documented as of this encounter
--- OUTSIDE RECORDS SUMMARY | 2024-04-12 11:12 | XMS_ITS | Encounter Summary ---
[place] [address] Care Team Providers Care Computer Technical Specialist Name Role Phone Lolly Oliveira MD Primary Care Provider [phone] Encounter Details Date Type Department Care Team (Latest Contact Info) Description 07/26/2013 9:45 AM EDT - 07/26/2013 11:59 PM EDT Hospital [place] [address] Mammographic microcalcification Social History Tobacco Use Types [...] AM EST Hospital Encounter Non-[place] [address] Arrived documented as of this encounter Procedures Procedure Name Priority Date/Time Associated Diagnosis Comments SURGICAL PATHOLOGY REPORT Routine 07/26/2013 12:12 PM EDT MAMMO SPECIMEN IMAGING DURING BIOPSY Routine 07/26/2013 11:58 AM EDT Mammographic microcalcification documented in this encounter Results * Surgical Pathology Report (07/26/2013 12:12 PM EDT) Final Diagnosis ? [facility] ? Provider: ?? ELENO CHRISTIAN ?? Pt. Name: ?? JING MOTT ? Acc #: ?[id number] ?Pt. ? Col Date: ?? 07/26/2013 ? [...] fragmented, fibrofatty needle core biopsies. ? [facility] ? Provider: ?? ELENO CHRISTIAN ?? Pt. Name: ?? JING MOTT ? Acc #: ?[id number] ?Pt. ? Col Date: ?? 07/26/2013 ? [...] PATHOLOGY/CYTOLOGY O RDERABLES Performing Organization Address City/State/[facility] [place] Phone Number [facility] [place] [address] * Mammo Specimen Imaging During Biopsy (07/26/2013 [...] microcalcification documented in this encounter Care Teams Computer Technical Specialist Relationship Specialty Start Date End Date Lolly Oliveira MD [address] [place] [address] PCP - General 07/17/13 documented as of this encounter
--- OUTSIDE RECORDS SUMMARY | 2024-04-12 11:12 | XMS_ITS | Encounter Summary ---
Author Organization [facility] [place] [address] Care Team Providers Care Principal Technologist Name Role Phone Lolly Oliveira MD Primary Care Provider [phone] Encounter Details Date Type Department Care Team (Latest Contact Info) Description 07/26/2013 9:44 AM EDT - 07/26/2013 11:59 PM EDT Hospital [place] [address] CLINIC, Lolly So MD [address] [place], [place] [id number] Mammographic microcalcification Discharge Disposition: Home Social History [...] Hospital Encounter Non[place] [address] Arrived documented as of this encounter Procedures [...] are present on specimen digital X-ray. A Suda-Stereo 13 Cylinder marker clip was placed. Cranio-caudal [...] mLs documented in this encounter Care Teams Principal Technologist Relationship Specialty Start Date End Date Lolly Oliveira MD [address] [place] [address] PCP - General 07/17/13 documented as of this encounter
--- OUTSIDE RECORDS SUMMARY | 2024-04-12 11:12 | XMS_ITS | Encounter Summary ---
Author Organization [facility] [place] [address] Care Team Providers Care Grails Web Application Developer Name Role Phone Lolly Oliveira MD Primary Care Provider [phone] Reason for Visit * Reason Comments Follow-up Encounter Details Date Type Department Care Team (Late st Contact Info) Description 06/06/2021 8:45 AM EDT Office Visit Dermatology at [address] [address] Clay Ramírez MD [address] [facility] [place] [address] Psoriasis, guttate Social History Tobacco Use Types [...] AM EST Hospital Encounter Non-[place] [address] Arrived documented as of this encounter Visit Diagnoses Diagnosis Psoriasis, guttate Other psoriasis documented in this encounter Care Teams Grails Web Application Developer Relationship Specialty Start Date End Date Lolly Oliveira MD [address] [place] [address] PCP - General 07/17/13 documented as of this encounter
--- OUTSIDE RECORDS SUMMARY | 2024-04-12 11:12 | XMS_ITS | Encounter Summary ---
[place] [address] Care Team Providers Care Antisubmarine Weapons Officer Name Role Phone Lolly Oliveira MD Primary Care Provider [phone] Encounter Details Date Type Department Care Team [...] on filedocumented in this encounter Care Teams Antisubmarine Weapons Officer Relationship Specialty Start Date End Date Lolly Oliveira MD [address] [place] [address] PCP - General 07/17/13 documented as of this encounter
[2024-04-12 11:27] VITALS: BP 144/67; PULSE 69
[2024-04-14 11:27] VITALS: BP 125/68; PULSE 55
[2024-04-19 11:01] VITALS: BP 138/62; PULSE 68
--- OUTSIDE RECORDS SUMMARY | 2024-04-19 11:01 | XMS_ITS | Encounter Summary ---
Author Organization [facility] Address [facility] [place] [address] Care Team Providers Care Flyer Repairer Name Role Phone Lolly Oliveira MD Primary Care Provider [phone] Encounter Details Date Type Department Care Team (Late st Contact Info) Description 05/03/2023 Telephone Cardiology at [address] [phone] Lalit Mcmahon MD [facility] [place] [address] Social History Tobacco Use Types Packs/Day Years [...] Care Team (Late st Contact Info) Description 07/14/2024 10:00 AM EDT Hospital Encounter Non-[place] [address] Arrived documented as of this encounter Visit Diagnoses Not on filedocumented in this encounter Care Teams Flyer Repairer Relationship Specialty Start Date End Date Lolly Oliveira MD [address] [place] [address] PCP - General 07/17/13 documented as of this encounter
--- OUTSIDE RECORDS SUMMARY | 2024-04-19 11:01 | XMS_ITS | Encounter Summary ---
Author Organization [facility] [place] [address] Care Team Providers Care Sewing Supervisor Name Role Phone Lolly Oliveira MD Primary Care Provider [phone] Encounter Details Date Type Department Care Team (Latest Contact Info) Description 01/16/2024 10:00 AM EST - 01/16/2024 11:59 PM EST Hospital Encounter Non-Invasive [place] [address] Discharge Disposition: Home Social History Tobacco Use [...] with spacer fluticasone propionate (Flonase) 50 mcg/actuation [place], Suspension 1 spray by Each Nare route daily as needed. documented as of this encounter Plan of Treatment Upcoming Encounters Date Type Department Care Team (Late st Contact Info) Description 07/14/2024 10:00 AM EDT Hospital Encounter Non-Invasive [place] [address] Arrived documented as of this encounter Procedures [...] on filedocumented in this encounter Care Teams Sewing Supervisor Relationship Specialty Start Date End Date Lolly Oliveira MD [address] [place] [address] PCP - General 07/17/13 documented as of this encounter
--- OUTSIDE RECORDS SUMMARY | 2024-04-19 11:01 | XMS_ITS | Encounter Summary ---
Author Organization [facility] [place] [address] Care Team Providers Care Statistical Methods Professor Name Role Phone Lolly Oliveira MD Primary Care Provider [phone] Encounter Details Date Type Department Care Team [...] AM EDT Hospital Encounter Non-Invasive [place] [address] Arrived documented as of this encounter Visit Diagnoses Not on filedocumented in this encounter Care Teams Statistical Methods Professor Relationship Specialty Start Date End Date Lolly Oliveira MD [address] [place] [address] PCP - General 07/17/13 documented as of this encounter
--- OUTSIDE RECORDS SUMMARY | 2024-04-19 11:01 | XMS_ITS | Encounter Summary ---
Author Organization [facility] [place] [address] Care Team Providers Care Wallpaperer Name Role Phone Lolly Oliveira MD Primary Care Provider Encounter Details Date Type Department Care Team (Late st Contact Info) Description 03/17/2023 Telephone Cardiology at [address] [phone] Saranya Ma Social History Tobacco Use Types [...] 9:43 AM EST Echo order faxed to [facility] at [phone]. No Prior auth needed. Ref #:[id number]. Saranya Ma Sr. Clinical Procedure [place]/Lettuce Cutter documented in this encounter Plan of Treatment Upcoming Encounters Date Type Department Care Team (Late st Contact Info) Description 07/14/2024 10:00 AM EDT Hospital Encounter Non-[place] [address] Arrived documented as of this encounter Visit Diagnoses Not on filedocumented in this encounter Care Teams Wallpaperer Relationship Specialty Start Date End Date Lolly Oliveira MD [address] [place] [address] PCP - General 07/17/13 documented as of this encounter
--- OUTSIDE RECORDS SUMMARY | 2024-04-19 11:01 | XMS_ITS | Encounter Summary ---
Author Organization [facility] [place] [address] Care Team Providers Care Hide Dyer Name Role Phone Lolly Oliveira MD Primary Care Provider [phone] Encounter Details Date Type Department Care Team (Latest Contact Info) Description 07/20/2023 10:00 AM EDT - 07/20/2023 11:59 PM EDT Hospital Encounter [place] [phone] Discharge Disposition: Home Social History Tobacco Use [...] with spacer fluticasone propionate (Flonase) 50 mcg/actuation [place], Suspension 1 spray by Each Nare route daily as needed. documented as of this encounter Plan of Treatment Upcoming Encounters Date Type Department Care Team (Late st Contact Info) Description 07/14/2024 10:00 AM EDT Hospital Encounter Non[place] [address] Arrived documented as of this encounter Procedures [...] on filedocumented in this encounter Care Teams Hide Dyer Relationship Specialty Start Date End Date Lolly Oliveira MD [address] [place] [address] PCP - General 5/12/14 documented as of this encounter
--- OUTSIDE RECORDS SUMMARY | 2024-04-19 11:01 | XMS_ITS | Referral Summary ---
Author Organization [facility] Address [address] [place] [address] Care Team Providers Care Human Resources Executive Assistant Name Role Phone Lolly Oliveira MD Primary Care Provider [phone] Social History Tobacco Use Types Packs/Day Years Used Date Smoking Tobacco: Never Assessed Comments Unknown Sex and Gender Information Value Date Recorded Sex Assigned at Not on file Legal Sex Female 18:31 EST Gender Identity Not on file Sexual Orientation Not on file Plan of Treatment Not on file Insurance [facility] MEDICARE Care Teams Human Resources Executive Assistant Relationship Specialty Start Date End Date Lolly Oliveira MD [address] [place] [address] PCP - General 11/13/08
--- OUTSIDE RECORDS SUMMARY | 2024-04-19 11:01 | XMS_ITS | Encounter Summary ---
Author Organization [facility] Address [address] [place] [address] Care Team Providers Care Coordinator Mining Products Name Role Phone Lolly Oliveira MD Primary Care Provider [phone] Encounter Details Date Type Department Care Team (Late st Contact Info) Description 05/02/2004 Results Only [facility] [address] [place] [address] Lolly Oliveira MD [address] [place], [place] [id number] Social History Tobacco Use Types Packs/Day Years [...] 68. [facility] Report Status Final [id number] [facility] 05/02/2004 9:32 EST 05/10/2004 9:32 EST us Lolly Oliveira MD MICROBIOLOGY - GENERAL ORDERABL ES Final Result [facility] [address] [place] [address] * CYTOPATHOLOGY (05/02/2004 0:00 EST) Pathology Report: CYTOPATHOLOGY REPORT Reports generated via electronic interface contain original data; however they are lacking the format of the original report. Caution should be taken when reading/interpreti ng unformatted reports. Name: ? JING ALVARENGA ? Accession #: ? [id number] : ? 1950 (Age: 53) ??F ?Collect [...] ORDERABLES Final Resu lt Performing Organization Address City/State/[facility] Co de Phone Number [facility] [address] [place] [address] documented in this encounter Visit Diagnoses Not on filedocumented in this encounter Care Teams Coordinator Mining Products Relationship Specialty Start Date End Date Lolly Oliveira MD [address] [place] [address] PCP - General 11/13/08 documented as of this encounter
--- OUTSIDE RECORDS SUMMARY | 2024-04-19 11:01 | XMS_ITS | Encounter Summary ---
Author Organization [facility] [address] Care Team Providers Care Industrial Engineering Name Role Phone Lolly Oliveira MD Primary Care Provider [phone] Encounter Details Date Type Department Care Team (Latest Contact Info) Description 04/21/2023 10:00 AM EST - 04/21/2023 11:59 PM EST Hospital Encounter [place] [phone] Discharge Disposition: Home Social History Tobacco Use [...] with spacer fluticasone propionate (Flonase) 50 mcg/actuation [place], Suspension 1 spray by Each Nare route [...] AM EDT Hospital Encounter [place] [address] Arrived documented as of this [...] in this encounter Care Teams Industrial Engineering Relationship Specialty Start Date End Date Lolly Oliveira MD [address] [place] [address] PCP - General 07/17/13 documented as of this encounter
--- OUTSIDE RECORDS SUMMARY | 2024-04-19 11:01 | XMS_ITS | Encounter Summary ---
Author Organization [facility] Address [address] [place] [address] Care Team Providers Care Cw Operator Name Role Phone Lolly Oliveira MD Primary Care Provider [phone] Encounter Details Date Type Department Care Team (Late st Contact Info) Description 06/16/2012 Results Only [facility] - [facility] ([facility]) [address] [place], [place] [id number] Lolly Oliveira MD [address] [place], [place] [id number] Social History Tobacco Use Types Packs/Day Years [...] ? JING ALVARENGA ? Accession #: ? [id number] : ? 1950 (Age: 61) ??F ?Collect [...] ORDERABLES Final Resu lt [facility] [address] [place] [address] documented in this encounter Visit Diagnoses Not on filedocumented in this encounter Care Teams Cw Operator Relationship Specialty Start Date End Date Lolly Oliveira MD [address] [place] [address] PCP - General 11/13/08 documented as of this encounter
--- OUTSIDE RECORDS SUMMARY | 2024-04-19 11:01 | XMS_ITS | Encounter Summary ---
Author Organization [facility] Address [address] [place] [address] Care Team Providers Care Manager Of Disaster Recovery Name Role Phone Lolly Oliveira MD Primary Care Provider [phone] Encounter Details Date Type Department Care Team (Late st Contact Info) Description 02/11/2021 Lab Requisition [facility] Pathology & Laboratory Medicine - [address] [id number] Outr Resulting Lab, Provider Social History Tobacco [...] MICROBIOLOGY - GENER AL ORDERABLES Final Result [facility] [address] [place] [address] * COVID-19 TESTING (02/11/2021 8:00 EST) COVID-19 rt-PCR Result Negative Negative 02/12/2021 14:17 EST [facility] Comment: This test [...] performed using the med SARS-CoV-2 assay ([employer] on the Med 6800 System Performing Lab Med [address] [facility] Lab 02/12/2021 14:17 EST [facility] Swab 02/11/2021 8:00 EST 02/11/2021 22:22 EST us Provider Outr Resulting Lab MICROBIOLOGY - GENER AL ORDERABLES Final Result [facility] [address] [place] [address] documented in this encounter Visit Diagnoses Not on filedocumented in this encounter Care Teams Manager Of Disaster Recovery Relationship Specialty Start Date End Date Lolly Oliveira MD [address] [place] [address] PCP - General 11/13/08 documented as of this encounter
--- OUTSIDE RECORDS SUMMARY | 2024-04-19 11:01 | XMS_ITS | Encounter Summary ---
Author Organization [facility] [address] Care Team Providers Care Freelance Data Entry Name Role Phone Lolly Oliveira MD Primary Care Provider [phone] Encounter Details Date Type Department Care Team (Late st Contact Info) Description 03/15/2023 Telephone Cardiology at [address] [phone] Saranya Ma Social History Tobacco Use Types Packs/Day Years Used Date Smoking Tobacco: Never Alcohol Use Standard Drinks/Week Comments Not Currently 0 (1 standard drink = 0.6 oz pur e alcohol) [facility] Inpatient Questions Answer Date Recorded [...] her to have an echo done at [facility] prior to her appt with[facility] there on 05/12/23. Message sent to Dr. Mcmahon asking him to put order in if he would like her to have this done. Saranya Ma Sr. Clinical Procedure Analytical Laboratory Technician/[employer] documented in this encounter Plan of Treatment Upcoming Encounters Date Type Department Care Team (Late st Contact Info) Description 07/14/2024 10:00 AM EDT Hospital Encounter Non-[place] [address] Arrived documented as of this encounter Visit Diagnoses Not on filedocumented in this encounter Care Teams Freelance Data Entry Relationship Specialty Start Date End Date Lolly Oliveira MD [address] [place] [address] PCP - General 07/17/13 documented as of this encounter
--- OUTSIDE RECORDS SUMMARY | 2024-04-19 11:01 | XMS_ITS | Encounter Summary ---
Author Organization [facility] Address [address] [place] [address] Care Team Providers Care Red Cap Name Role Phone Lolly Oliveira MD Primary Care Provider [phone] Encounter Details Date Type Department Care Team (Late st Contact Info) Description 03/06/2003 Results Only [facility] conversion [address] [place] [address] Lolly Oliveira MD [address] [place], [place] [id number] Social History Tobacco Use Types Packs/Day Years [...] ORDERABLES Final Resu lt [facility] [address] [place] [address] documented in this encounter Visit Diagnoses Not on filedocumented in this encounter Care Teams Red Cap Relationship Specialty Start Date End Date Lolly Oliveira MD [address] [place] [address] PCP - General 11/13/08 documented as of this encounter
--- OUTSIDE RECORDS SUMMARY | 2024-04-19 11:01 | XMS_ITS | Encounter Summary ---
Author Organization [facility] Address [address] [place] [address] Care Team Providers Care Disc Pad Knockout Worker Name Role Phone Lolly Oliveira MD Primary Care Provider [phone] Encounter Details Date Type Department Care Team (Late st Contact Info) Description 05/29/2002 Results Only [facility] conversion [address] [place] [address] Silvia Diehl, [address] [place] [phone] Social History Tobacco Use Types Packs/Day Years [...] Name: ? LYLEJING ? Accession #: ? [id number] : ? 1950 (Age: 51) ??F ?Collect Date: ? 05/29/2002 Location: ? [facility] ? Receive Date: ? 05/31/2002 Provider: ?SILVIA DIEHL DOLLY DRIVER Copy to: ? Specimen/Source: ?ThinPrep Pap Test, [...] [facility] 05/29/2002 05/31/2002 us Silvia Diehl DOLLY DRIVER PATHOLOGY ORDERABLES Final R esult [facility] [address] [place] [address] documented in this encounter Visit Diagnoses Not on filedocumented in this encounter Care Teams Disc Pad Knockout Worker Relationship Specialty Start Date End Date Lolly Oliveira MD [address] [place] [address] PCP - General 11/13/08 documented as of this encounter
--- OUTSIDE RECORDS SUMMARY | 2024-04-19 11:01 | XMS_ITS | Encounter Summary ---
Author Organization [facility] [place] [address] Care Team Providers Care Brace End Mainspring Former Name Role Phone Lolly Oliveira MD Primary Care Provider [phone] Encounter Details Date Type Department Care Team (Late st Contact Info) Description 05/18/2023 Telephone Dermatology at [address] [address] Nora Meredith LPN Social History [...] Hospital Encounter Non[place] [phone] Arrived documented as of this encounter Visit Diagnoses Not on filedocumented in this encounter Care Teams Brace End Mainspring Former Relationship Specialty Start Date End Date Lolly Oliveira MD [address] [place] [address] PCP - General 07/17/13 documented as of this encounter
--- OUTSIDE RECORDS SUMMARY | 2024-04-19 11:01 | XMS_ITS | Encounter Summary ---
Author Organization [facility] Address [address] [place] [address] Care Team Providers Care Starter Mechanic Name Role Phone Lolly Oliveira MD Primary Care Provider [phone] Encounter Details Date Type Department Care Team (Late st Contact Info) Description 05/27/2021 Lab Requisition [facility] Pathology & Laboratory Medicine - [address] [address] Iman Moran, DO [address] [place], [place] [id number] Encounter for other general examination Social History [...] [facility] Performing Lab [facility] 05/30/2021 13:31 [facility] Scanned Images 05/30/2021 13:31 [facility] Tissue ENTIRE COLON / Unknown 05/27/2021 11:23 EDT 05/27/2021 16:33 EDT us Iman Moran DO PATHOLOGY ORDERABLES Final Re sult [facility] [address] [place] [address] documented in this encounter Visit Diagnoses Diagnosis Encounter for other general examination documented in this encounter Care Teams Starter Mechanic Relationship Specialty Start Date End Date Lolly Oliveira MD [address] [place] [address] PCP - General 11/13/08 documented as of this encounter
--- OUTSIDE RECORDS SUMMARY | 2024-04-19 11:01 | XMS_ITS | Encounter Summary ---
Author Organization [facility] Address [address] [place] [address] Care Team Providers Care Linter Saw Sharpener Name Role Phone Unavailable Primary Care Provider Unavailabl e Encounter Details Date Type Department Care Team (Late st Contact Info) Description 11/07/2008 Orders Only [facility] Laboratory Services - [facility] [address] [place] [address] Kenneth Parker MD [address] [place] [address] Social History Tobacco Use Types Packs/Day Years [...] ? JING ALVARENGA ? Accession #: ? [id number] ? : ? 1950 (Age: 58) ??F [...] ORDERABLES Final Resu lt [facility] [address] [place] [address] documented in this encounter Visit Diagnoses Not on filedocumented in this encounter
--- OUTSIDE RECORDS SUMMARY | 2024-04-19 11:01 | XMS_ITS | Data Portability ---
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 (see Attached [facility] Pamphlet)? No Information not available 05/21/2023 How Often Do You Have Trouble Taking Medicines The Way You Have Been Told To Take Them? I Always Take Them As Prescribed [email or web address] Information not available 05/21/2023 How Confident Are You That You Can Control And Manage Most Of Your Health Problems? Very Confident [email or web address] Information not available 05/21/2023 Do You Currently Have Any Difficulty With Your Hearing? No [email or web address] Information not available 05/21/2023 Date Of Most Recent SBINS 05/21/2023 [email or web address] Information not available 05/21/2023 What Was The Date Of Your Most Recent Tobacco Screening? 09/01/2023 Information not available 09/01/2023 Has Tobacco Cessation Counseling Been Provided? Yes Information not available 09/01/2023 On What Date Was Tobacco Cessation Counseling Provided? 09/01/2023 Information not available 09/01/2023 Do You Or Have You Ever Used Any Other Forms Of Tobacco Or Nicotine? No [email or web address] Information not available 05/21/2023 Sex: Female Functional [...] preservative free, adsorbed 9 completed Not Available [facility] 01/15/2023 04:53:39 Tdap 8 completed Not Available [facility] 01/15/2023 04:53:39 zoster live 3 completed Not Available [facility] 01/15/2023 04:53:40 Pneumococcal conjugate PCV 13 6 completed Not Available [facility] 01/15/2023 04:53:40 Influenza, high-dose, trivalent, PF 8 completed Not Available [facility] 01/15/2023 04:53:41 Td(adult) unspecified formulation 3 completed Not Available [facility] 01/15/2023 04:53:41 Influenza, split virus, trivalent, preservative 6 completed Not Available [facility] 01/15/2023 04:53:41 Influenza, split virus, trivalent, preservative 5 completed Not Available [facility] 01/15/2023 04:53:41 Influenza, split virus, quadrivalent, PF 9 completed Not Available [facility] 01/15/2023 04:53:41 zoster recombinant 9 completed Not Available [facility] 01/15/2023 04:53:42 zoster recombinant 8 completed Not Available [facility] 01/15/2023 04:53:42 Influenza, high-dose, quadrivalent, PF 1 completed Not Available [facility] 01/15/2023 04:53:43 Influenza, high-dose, quadrivalent, PF 0 completed Not Available [facility] 01/15/2023 04:53:43 Influenza, high-dose, quadrivalent, PF 2 completed Not Available [facility] 01/15/2023 04:53:43 COVID-19, mRNA, LNP-S, PF, 100 mcg/0.5mL dose or 50 mcg/0.25mL dose 2 completed Not Available [facility] 01/15/2023 04:53:43 COVID-19 vaccine, vector-nr, rS-Ad26, PF, 0.5 mL 1 completed Not Available [facility] 01/15/2023 04:53:44 SARS-COV-2 (COVID-19) vaccine, UNSPECIFIED 1 completed Not Available [facility] 01/15/2023 04:53:44 SARS-COV-2 (COVID-19) vaccine, UNSPECIFIED 1 completed Not Available [facility] 01/15/2023 04:53:44 pneumococcal polysaccharide PPV23 5 completed Not Available [facility] 01/15/2023 04:53:45 Hep B, unspecified formulation 4 completed Not Available [facility] 01/15/2023 04:53:45 Hep B, unspecified formulation 3 completed Not Available [facility] 01/15/2023 04:53:46 Hep B, unspecified formulation 3 completed Not Available [facility] 01/15/2023 04:53:46 influenza, unspecified formulation 0 completed Not Available [facility] 01/15/2023 04:53:47 influenza, unspecified formulation 3 completed Not Available [facility] 01/15/2023 04:53:47 influenza, unspecified formulation 9 completed Not Available [facility] 01/15/2023 04:53:47 influenza, unspecified formulation 1 completed Not Available [facility] 01/15/2023 04:53:47 influenza, unspecified formulation 7 completed Not Available [facility] 01/15/2023 04:53:48 influenza, unspecified formulation 4 completed Not Available [facility] 01/15/2023 04:53:48 influenza, unspecified formulation 8 completed Not Available [facility] 01/15/2023 04:53:48 influenza, unspecified formulation 2 completed Not Available [facility] 01/15/2023 04:53:48 Influenza, high-dose, quadrivalent, PF 3 completed Not Available [facility] 03/19/2023 05:33:03 COVID-19, mRNA, LNP-S, PF, herminio-sucrose, 30 mcg/0.3 mL 3 completed Not Available [facility] 03/19/2023 05:33:03 COVID-19, mRNA, [...] SNOMED-CT Code Diagnosis ICD10 Code Diagnosis Note [id number] LOLLY CORTEZ MD [facility] [address] [place] [address] 05/21/2023 10:03:54 05/21/2023 11:37:49 Onychomycosis [id number] B35.1 There is bothering her more, more difficult to trim her toenails. She also has a callus that she would like looked with podiatry. Asthma 253885098 J45.90 9 Rare use of albuterol, she will continue the same Cardiomyopathy 70581820 I10 Clinically remaining stable, has had significan [...] well-contr olled. Disorder of hip joint 42 [id number] M12.859 Doing well status post now bilateral total hip replacemen ts. 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 She is working on exercises in addition to walking. Mammo will be due in the fall. Up-to-date with colonoscop y. [id number] [address],[facility] [address] [place] [address] 09/01/2023 10:23:16 09/01/2023 13:28:10 Vertigo 115420176 R42 Patient has been experienci ng vertigo [...] on. Impacted c erumen of bilateral ears [id number] 199641 H61.23 Ear lavage performed with complete resolution and no signs of infection. [id number] LOLLY CORTEZ MD [address] [address] 11/26/2023 07:26:08 11/26/2023 08:10:59 Screening mammography 83590669 Z12.31 Adjustment disorder 1722 6007 F43.20 , Still grieving the loss of her about a year and a half ago. She still finds it hard being in the house alone. Her kids and grandkids have been with a good visiting regularly which she appreciate s. Asthma 687890883 J45.90 9 Rare use of albuterol, she will continue the same Essential hypertension 81760594 I10 Under reasonably good control, see cardiomyop athy below Guttate psoriasis 073547 00 L40.4 , Following dermatolog y. Will be starting photothera py in addition to the clobetasol once the colder weather arrives. Has been just trying to get some sun exposure on her skin over the summer. Currently psoriasis is not too bad Cardiomyopathy 45839044 I10 Clinically remaining stable, has had significan [...] okay continuing to take it. Up-to-date with [facility]. Creatinine remains a little elevated as is BUN, although these have improved. Encouraged increased fluid intake Hyperlipidemia 95405840 E78.5 on rosuvastat in, lipids well-contr olled, normal LFTs Prediabetes 957935175 R7 3.03 And obesity. A1c 5.9, This [...] continue doing that. She has met with [facility]. Health Concerns Section Related Observation LastModified by Organization Detai ls LastModified Time None Recorded Concern Status LastModified by Organization Details LastModified Time None Recorded Advance Directives Directive None Recorded Payers Encounter Date Sequence Insurance Name Policy Number Policy Lema Covered Member ID Lema Member ID Guarantor Name 05/21/2023 1 [id number] - [place]PO) [id number] Luna Barber LunaRosamond [id number] Luna Lunaslin 09/01/2023 1 [place] - [place]) [id number] Luna Lunaslin [id number] Luna Lunaslin 11/26/2023 1 [place] - [place]) [id number] Luna Lunaslin [id number] Luna Mott Notes Date Note Type Note Provider Name and Address Organization Details Recorded Time 05/21/2023 text/html Thais here today for an annual wellness exam LOLLY CORTEZ MD [address], [place], [address], [facility]. 05/24/2023 18:32:35 09/01/2023 text/html Luna [...] it. JESSICA INGRAM PA-C [address], [place], [address], [facility]. 09/01/2023 13:55:07 11/26/2023 text/html Thais here today for follow-up of cardiomyopathy, obesity LOLLY CORTEZ MD [address], [place], [address], [facility]. 11/28/2023 09:26:44 OBGyn Episode No OBEpisode recorded.
--- OUTSIDE RECORDS SUMMARY | 2024-04-19 11:01 | XMS_ITS | Encounter Summary ---
Author Organization [facility] Address [address] [place] [address] Care Team Providers Care Photographic Process Screen Maker Name Role Phone Lolly Oliveira MD Primary Care Provider [phone] Encounter Details Date Type Department Care Team (Late st Contact Info) Description 03/21/2019 Lab Requisition [facility] Pathology & Laboratory Medicine - [address] [address] Unknown, Provider, Social History Tobacco Use Types [...] 211 - 911 pg/mL 03/22/2019 11:52 EST [facility] Blood VENOUS BLOOD / Unknown 03/16/2019 9:25 EST 03/21/2019 21:35 EST us Provider Unknown CHEMISTRY & BLOOD GAS ORDERA BLES Final Result [facility] [address] [place] [address] documented in this encounter Visit Diagnoses Not on filedocumented in this encounter Care Teams Photographic Process Screen Maker Relationship Specialty Start Date End Date Lolly Oliveira MD [address] [place] [address] PCP - General 11/13/08 documented as of this encounter
--- OUTSIDE RECORDS SUMMARY | 2024-04-19 11:01 | XMS_ITS | Encounter Summary ---
Author Organization [facility] Address [address] [place] [address] Care Team Providers Care Professor Of Special Education Name Role Phone Lolly Oliveira MD Primary Care Provider [phone] Encounter Details Date Type Department Care Team (Late st Contact Info) Description 02/20/2020 Lab Requisition [facility] Pathology & Laboratory Medicine - [address] [id number] Outr Resulting Lab, Provider Social History Tobacco [...] MICROBIOLOGY - GENER AL ORDERABLES Final Result [facility] [place] * COVID-19 TESTING (02/19/2020 16:30 EST) COVID-19 rt-PCR Result NEGATIVE Negative 02/22/2020 23:41 EST [facility] Comment: 2019-novel Coronavirus (2019-nCoV) not [...] [facility] 02/22/2020 23:41 EST [facility] Swab 02/19/2020 16:3 0 EST 02/20/2020 16:09 EST us Provider Outr Resulting Lab MICROBIOLOGY - GENER AL ORDERABLES Final Result [facility] [address] [place] [address] [facility] [place], [place] documented in this encounter Visit Diagnoses Not on filedocumented in this encounter Care Teams Professor Of Special Education Relationship Specialty Start Date End Date Lolly Oliveira MD [address] [place] [address] PCP - General 11/13/08 documented as of this encounter
--- OUTSIDE RECORDS SUMMARY | 2024-04-19 11:01 | XMS_ITS | Encounter Summary ---
Author Organization [facility] Address [address] [place] [address] Care Team Providers Care Bun Panner Name Role Phone Lolly Oliveira MD Primary Care Provider [phone] Encounter Details Date Type Department Care Team (Late st Contact Info) Description 04/12/2007 Results Only [facility] conversion [address] [place] [address] Lolly Oliveira MD [address] [place], [place] [id number] Social History Tobacco Use Types Packs/Day Years [...] ? JING ALVARENGA ? Accession #: ? [id number] : ? 1950 (Age: 56) ??F ?Collect Date: ? 04/12/2007 Location: ? [facility] ? Receive Date: ? 04/13/2007 Provider: ?LOLLY OLIVEIRA MD Copy to: ? Specimen/Source: ?ThinPrep Pap Test, Cervix/Endocervix, processed on [employer] ThinPrep Imaging System, with manual evaluation Last [...] ORDERABLES Final Resu lt [facility] [address] [place] [address] documented in this encounter Visit Diagnoses Not on filedocumented in this encounter Care Teams Bun Panner Relationship Specialty Start Date End Date Lolly Oliveira MD [address] [place] [address] PCP - General 11/13/08 documented as of this encounter
--- OUTSIDE RECORDS SUMMARY | 2024-04-19 11:01 | XMS_ITS | Encounter Summary ---
Author Organization [facility] Address [address] [place] [address] Care Team Providers Care Risk Assessment Analyst Name Role Phone Lolly Oliveira MD Primary Care Provider [phone] Encounter Details Date Type Department Care Team (Late st Contact Info) Description 11/13/2020 Lab Requisition [facility] Pathology & Laboratory Medicine - [address] [address] Outr Resulting Lab, Provider Social History Tobacco [...] MICROBIOLOGY - GENER AL ORDERABLES Final Result [facility] [address] [place] [address] * COVID-19 TESTING (11/13/2020 7:30 EDT) COVID-19 rt-PCR Result Negative Negative 11/14/2020 11:46 EDT [facility] Comment: This test has [...] performed using the med SARS-CoV-2 assay ([employer] on the Med 6800 System Performing Lab Med [address] [facility] Lab 11/14/2020 11:46 EDT [facility] Swab 11/13/2020 7:30 EDT 11/13/2020 20:57 EDT us Provider Outr Resulting Lab MICROBIOLOGY - GENER AL ORDERABLES Final Result Performing Organization Address [facility] Co de Phone Number [facility] [address] [place] [address] documented in this encounter Visit Diagnoses Not on filedocumented in this encounter Care Teams Risk Assessment Analyst Relationship Specialty Start Date End Date Lolly Oliveira MD [address] [place] [address] PCP - General 11/13/08 documented as of this encounter
--- OUTSIDE RECORDS SUMMARY | 2024-04-19 11:01 | XMS_ITS | Encounter Summary ---
Author Organization [facility] Address [address] [place] [address] Care Team Providers Care Industrial Cafeteria Manager Name Role Phone Lolly Oliveira MD Primary Care Provider Encounter Details Date Type Department Care Team (Late st Contact Info) Description 04/25/2009 Orders Only [facility] Laboratory Services - [facility] ([facility] [address] [place], [place] [phone] Lolly Oliveira MD [address] [place], [place] [phone] Social History Tobacco Use Types Packs/Day Years [...] ? JING ALVARENGA ? Accession #: ? [id number] ? : ? 1950 (Age: 58) ??F [...] ORDERABLES Final Resu lt Performing Organization Address [facility]/State/ZIP Co de Phone Number [facility] [address] [place] [address] documented in this encounter Visit Diagnoses Not on filedocumented in this encounter Care Teams Industrial Cafeteria Manager Relationship Specialty Start Date End Date Lolly Oliveira MD [address] [place] [address] PCP - General 11/13/08 documented as of this encounter
--- OUTSIDE RECORDS SUMMARY | 2024-04-19 11:01 | XMS_ITS | Encounter Summary ---
Author Organization [place] [address] Care Team Providers Care Food Service Worker Hospital Name Role Phone Lolly Oliveira MD Primary Care Provider [phone] Reason for Visit * Reason Comments Follow-up 8 weeks UVB treatmen t twice weekly Encounter Details Date Type Department Care Team (Late st Contact Info) Description 07/19/2023 11:00 AM EDT Office Visit Dermatology at [address] [phone] Clay Ramírez MD [address], ERIKA A DERMATOLOGY [place], [place] [phone] Psoriasis Social History Tobacco Use Types Packs/Day [...] improved the worst area being theleft anterior otriz but since faded and is no longer [...] AM EDT Hospital Encounter Non-Invasive [place] [address] Arrived documented as of this encounter Visit Diagnoses Diagnosis Psoriasis Other psoriasis documented in this encounter Care Teams Food Service Worker Hospital Relationship Specialty Start Date End Date Lolly Oliveira MD [address] [place] [address] PCP - General 07/17/13 documented as of this encounter
--- OUTSIDE RECORDS SUMMARY | 2024-04-19 11:01 | XMS_ITS | Encounter Summary ---
Author Organization [facility] Address [address] [place] [address] Care Team Providers Care Software Quality Engineer Name Role Phone Lolly Oliveira MD Primary Care Provider [phone] Encounter Details Date Type Department Care Team (Late st Contact Info) Description 04/17/2005 Results Only [facility] conversion [address] [place] [address] Lolly Oliveira MD [address] [place], [place] [id number] Social History Tobacco Use Types Packs/Day Years [...] ? JING ALVARENGA ? Accession #: ? [id number] : ? 1950 (Age: 54) ??F ?Collect Date: ? 04/17/2005 Location: ? [facility] ? Receive Date: ? 04/21/2005 Provider: ?LOLLY OLIVEIRA MD Copy to: ? Specimen/Source: ?ThinPrep Pap Test, Cervix/Endocervix, processed on [employer] ThinPrep Imaging System, with manual evaluation [...] Final Resu lt [facility] [address] [place] [address] documented in this encounter Visit Diagnoses Not on filedocumented in this encounter Care Teams Software Quality Engineer Relationship Specialty Start Date End Date Lolly Oliveira MD [address] [place] [address] PCP - General 11/13/08 documented as of this encounter
--- OUTSIDE RECORDS SUMMARY | 2024-04-19 11:01 | XMS_ITS | Encounter Summary ---
Author Organization [facility] [place] [address] Care Team Providers Care Electrical Tester Battery Name Role Phone Lolly Oliveira MD Primary Care Provider [phone] Encounter Details Date Type Department Care Team (Latest Contact Info) Description 04/15/2024 10:00 AM EST - 04/15/2024 11:59 PM EST Hospital Encounter [place] [phone] Arrived Discharge Disposition: Home Social History Tobacco [...] with spacer fluticasone propionate (Flonase) 50 mcg/actuation [place], Suspension 1 spray by Each Nare route daily as needed. documented as of this encounter Plan of Treatment Upcoming Encounters Date Type Department Care Team (Late st Contact Info) Description 07/14/2024 10:00 AM EDT Hospital Encounter [place] [address] Arrived documented as of this encounter Procedures Procedure Name Priority Date/Time Associated Diagnosis Comments PRO ICD INTERROGATION REMOTE UP TO 90 DAYS Routine 02/18/2024 4:30 AM EST documented in this encounter Results * Cardiac Device Check - Remote (02/18/2024 4:30 AM EST) Anatomical Region Laterality Modality Other 02/18/2024 4:30 AM EST Lalit Mcmahon MD IMPLANTABLE CARDIAC DEVICE documented in this encounter Visit Diagnoses Not on filedocumented in this encounter Care Teams Electrical Tester Battery Relationship Specialty Start Date End Date Lolly Oliveira MD [address] [place] [address] PCP - General 07/17/13 documented as of this encounter
--- OUTSIDE RECORDS SUMMARY | 2024-04-19 11:01 | XMS_ITS | Encounter Summary ---
Author Organization [facility] Address [facility] [place] [address] Care Team Providers Care Forwarder Operator Name Role Phone Lolly Oliveira MD Primary Care Provider [phone] Encounter Details Date Type Department Care Team (Late st Contact Info) Description 01/29/2023 Notes Only Cardiology at [address] [address] Merle Lin PA [facility] [place] [address] Social History Tobacco Use Types Packs/Day Years [...] pdf document Date of transmission: 01/29/2023 Device nursery teacher: BSI Device type: ENTERPRISE APPLICATION ARCHITECT-D Presenting rhythm: /RVP/LVP AP 21% Right MEDICAL LEGAL INVESTIGATOR 100% Left MEDICAL LEGAL INVESTIGATOR: 100% Battery: 10.5 years [employer] Index rising in setting of increasing S3 intensity, increasing respiratory rate, increasing night heart rate, and increasing mean heart rate. MICKEY Villa 01/29/2023 9:06 AM documented in this encounter Plan of Treatment Upcoming Encounters Date Type Department Care Team (Late st Contact Info) Description 07/14/2024 10:00 AM EDT Hospital Encounter Non-Invasive [place] [address] Arrived documented as of this encounter Visit Diagnoses Not on filedocumented in this encounter Care Teams Forwarder Operator Relationship Specialty Start Date End Date Lolly Oliveira MD [address] [place] [address] PCP - General 07/17/13 documented as of this encounter
--- OUTSIDE RECORDS SUMMARY | 2024-04-19 11:01 | XMS_ITS | Clinical Summary ---
[facility] [place] [address] Care Team Providers Care Rubber Grinder Name Role Phone Lolly Oliveira MD [...] Encounters Date Type Department Care Team Description 04/15/2024 10:00 AM EST - 04/15/2024 11:59 PM EST Hospital Encounter [place] [address] Arrived Discharge Disposition: Home from [...] AM EDT Hospital Encounter [place] [address] Arrived Health Maintenance Due Date Last Done [...] series) 11/07/2023 Medical Devices Implanted Type Area Sales Contract Administrator Device Identifier Shelf Expiration Date Model / Serial / Lot Bsx: [id number]: 616317-8/18/2 023 Implanted: by Lalit Mcmahon MD (Quantity not on file) Defibrillator Chest Wall [employer] [id number] / [id number] / Bsx: 4674: [id number]/18/2 023 Implanted: by Lalit Mcmahon MD (Quantity not on file) Lead Heart [employer] 4674 / [id number] / Bsx: [id number]: [id number] Implanted: by Lalit Mcmahon MD (Quantity not on file) Lead Heart [employer] 7841 / [id number] / Bsx: 0672: 955182-4/18/2 023 Implanted: by Lalit Mcmahon MD (Quantity not on file) Lead Heart [employer] 0672 / [id number] / Procedures Procedure Name Priority Date/Time Associated Diagnosis Comments PRO ICD INTERROGATION REMOTE UP TO 90 DAYS Routine 02/18/2024 4:30 AM EST from Last [...] Status decision made by: Patient Care Teams Rubber Grinder Relationship Specialty Start Date End Date Lolly Oliveira MD [address] [place] [id number] PCP - General 07/17/13
--- OUTSIDE RECORDS SUMMARY | 2024-04-19 11:01 | XMS_ITS | Encounter Summary ---
Author Organization [facility] Address [address] [place] [address] Care Team Providers Care Conciliation Court Judge Name Role Phone Lolly Oliveira MD Primary Care Provider [phone] Encounter Details Date Type Department Care Team (Late st Contact Info) Description 04/01/2005 Results Only [facility] conversion [address] [place] [address] Blair Dukes MD [address] [place] [id number] Social History Tobacco Use Types Packs/Day Years [...] ? JING ALVARENGA ? Accession #: ? [id number] ? : ? 1950 (Age: 54) ??F [...] ? Received in [place]' s fixative labelled [place] and #1 ??terminal ileum bx is a single 0.3 x 0.2 x 0.2 cm tissue, submitted intact as (A). Received in [place]' s fixative labelled [place] and #2 ??transverse colon bx is a single 0.2 x 0.2 x 0.2 cm tissue, submitted intact as (B). ??(Dr. Lechuga)/[facility] End of Report [facility] 04/01/2005 04/02/2005 15: 24 EST us Blair Dukes MD PATHOLOGY ORDERABLES Final Resul t [facility] [address] [place] [address] documented in this encounter Visit Diagnoses Not on filedocumented in this encounter Care Teams Conciliation Court Judge Relationship Specialty Start Date End Date Lolly Oliveira MD [address] [place] [address] PCP - General 11/13/08 documented as of this encounter
--- OUTSIDE RECORDS SUMMARY | 2024-04-19 11:01 | XMS_ITS | Encounter Summary ---
Author Organization [facility] [place] [address] Care Team Providers Care Crepe Sole Wire Brusher Name Role Phone Lolly Oliveira MD Primary Care Provider Encounter Details Date Type Department Care Team (Late st Contact Info) Description 05/18/2023 Refill Dermatology at [address] [address] Nora Meredith LPN Social [...] patient. She voiced understanding. Order sent to [facility] drug. documented in this encounter Plan of Treatment Upcoming Encounters Date Type Department Care Team (Late st Contact Info) Description 07/14/2024 10:00 AM EDT Hospital Encounter Non-[place] [address] Arrived documented as of this encounter Visit Diagnoses Not on filedocumented in this encounter Care Teams Crepe Sole Wire Brusher Relationship Specialty Start Date End Date Lolly Oliveira MD [address] [place] [address] PCP - General 07/17/13 documented as of this encounter
--- OUTSIDE RECORDS SUMMARY | 2024-04-19 11:01 | XMS_ITS | Encounter Summary ---
Author Organization [facility] Address [facility] [place] [address] Care Team Providers Care Biostatistics Manager Name Role Phone Lolly Oliveira MD Primary Care Provider Encounter Details Date Type Department Care Team (Late st Contact Info) Description 03/15/2023 Orders Only Cardiology at [address] [phone] Lalit Mcmahon MD [facility] [place] [address] Nonischemic cardiomyopathy; Biventricular ICD (implantable cardioverter-defibrill ator) [...] AM EDT Hospital Encounter [place] [address] Arrived documented as of this encounter Visit Diagnoses Diagnosis Nonischemic cardiomyopathy Other primary cardiomyopathies Biventricular ICD (implantable cardioverter-defibrillator) in place documented in this encounter Care Teams Biostatistics Manager Relationship Specialty Start Date End Date Lolly Oliveira MD [address] [place] [address] PCP - General 07/17/13 documented as of this encounter
--- OUTSIDE RECORDS SUMMARY | 2024-04-19 11:01 | XMS_ITS | Clinical Summary ---
Author Organization [facility] Address [address] [place] [address] Care Team Providers Care Medical Reception Specialist Name Role Phone Lolly Oliveira MD Primary Care Provider [phone] Social History Tobacco Use Types Packs/Day Years [...] 08/10/2023 COVID-19 Vaccine (2023- season) 2023 Insurance [facility] MEDICARE Care Teams Medical Reception Specialist Relationship Specialty Start Date End Date Berrian, Lolly, MD [address] [place] [address] PCP - General 11/13/08
--- OUTSIDE RECORDS SUMMARY | 2024-04-19 11:01 | XMS_ITS | Encounter Summary ---
Author Organization [facility] [address] Care Team Providers Care Small Business Director Name Role Phone Lolly Oliveira MD Primary Care Provider [phone] Encounter Details Date Type Department Care Team (Latest Contact Info) Description 10/18/2023 10:00 AM EDT - 10/18/2023 11:59 PM EDT Hospital Encounter [place] [phone] Discharge Disposition: Home Social History Tobacco Use [...] with spacer fluticasone propionate (Flonase) 50 mcg/actuation [place], Suspension 1 spray by Each Nare route daily as needed. documented as of this encounter Plan of Treatment Upcoming Encounters Date Type Department Care Team (Late st Contact Info) Description 07/14/2024 10:00 AM EDT Hospital Encounter Non[place] [address] Arrived documented as of this encounter Procedures [...] on filedocumented in this encounter Care Teams Small Business Director Relationship Specialty Start Date End Date Lolly Oliveira MD [address] [place] [address] PCP - General 5/12/14 documented as of this encounter
--- OUTSIDE RECORDS SUMMARY | 2024-04-19 11:02 | XMS_ITS | Encounter Summary ---
Author Organization [facility] [place] [address] Care Team Providers Care Hairmasters Manager Name Role Phone Lolly Oliveira MD Primary Care Provider Encounter Details Date Type Department Care Team (Latest Contact Info) Description 07/20/2013 9:26 AM EDT - 07/20/2013 11:59 PM EDT Hospital En[place] [phone] CLINIC, Lolly So MD [address] [place], [place] [id number] Mammographic microcalcification Discharge Disposition: Home Social History [...] AM EDT Hospital Encounter Non[place] [address] Arrived documented as of this encounter Procedures [...] microcalcification documented in this encounter Care Teams Hairmasters Manager Relationship Specialty Start Date End Date Lolly Oliveira MD [address] [place] [address] PCP - General 07/17/13 documented as of this encounter
--- OUTSIDE RECORDS SUMMARY | 2024-04-19 11:02 | XMS_ITS | Encounter Summary ---
Author Organization [place] [address] Care Team Providers Care Food Safety Auditor Name Role Phone Lolly Oliveira MD Primary Care Provider [phone] Encounter Details Date Type Department Care Team (Late st Contact Info) Description 04/01/2021 3:30 PM EST Office Visit Dermatology at [address] [phone] Clay Ramírez MD [address], [place] [address] Psoriasis, guttate Social History Tobacco Use Types [...] AM EDT Hospital Encounter Non-Invasive [place] [address] Arrived documented as of this encounter Visit Diagnoses Diagnosis Psoriasis, guttate Other psoriasis documented in this encounter Care Teams Food Safety Auditor Relationship Specialty Start Date End Date Lolly Oliveira MD [address] [place] [address] PCP - General 07/17/13 documented as of this encounter
--- OUTSIDE RECORDS SUMMARY | 2024-04-19 11:02 | XMS_ITS | Encounter Summary ---
Author Organization [facility] [place] [address] Care Team Providers Care Roller Shop Utility Worker Name Role Phone Lolly Oliveira MD Primary Care Provider [phone] Encounter Details Date Type Department Care Team (Latest Contact Info) Description 10/23/2022 10:00 AM EDT - 10/23/2022 11:59 PM EDT Hospital Encounter Non-[place]vasive [place] [address] Discharge Disposition: Home Social History Tobacco Use [...] with spacer fluticasone propionate (Flonase) 50 mcg/actuation [place], Suspension 1 spray by Each Nare route [...] AM EDT Hospital Encounter Non-[place] [address] Arrived documented as of this [...] in this encounter Care Teams Roller Shop Utility Worker Relationship Specialty Start Date End Date Lolly Oliveira MD [address] [place] [address] PCP - General 07/17/13 documented as of this encounter
--- OUTSIDE RECORDS SUMMARY | 2024-04-19 11:02 | XMS_ITS | Encounter Summary ---
Author Organization [facility] [place] [address] Care Team Providers Care Stretcher Leveler Operator Helper Name Role Phone Lolly Oliveira MD Primary Care Provider [phone] Encounter Details Date Type Department Care Team (Latest Contact Info) Description 07/18/2013 [place] [phone] Alia Fraire MD Mammographic microcalcification (Primary Dx) [...] AM EDT Hospital Encounter Non-Invasive [place] [address] Arrived documented as of this encounter Results [...] are present on specimen digital X-ray. A Excelimmunerk Eviva-Stereo 13 Cylinder marker clip was placed. [...] calcifications are present on specimendigital X-ray. A [employer] Eviva-Stereo 13 Cylinder marker clip was placed. [...] does not layer and, therefore, are not claim service representative of milk of calcium. Again, [...] does not layer and, therefore, are not claim service representative of milk of calcium. Again, these have an amorphous andpunctate appearance and remain indeterminate. Stereotactic guided biopsy isrecommended. Alia Fraire MD IMG MAMMO ORDERABLES documented in this encounter Visit Diagnoses Diagnosis Mammographic microcalcification- Primary Mammographic microcalcification Mammographic microcalcification Mammographic microcalcification Mammographic microcalcification documented in this encounter Care Teams Stretcher Leveler Operator Helper Relationship Specialty Start Date End Date Lolly Oliveira MD [address] [place] [address] PCP - General 07/17/13 documented as of this encounter
--- OUTSIDE RECORDS SUMMARY | 2024-04-19 11:02 | XMS_ITS | Encounter Summary ---
[place] [address] Care Team Providers Care Medical Office Worker Name Role Phone Lolly Oliveira MD Primary Care Provider [phone] Encounter Details Date Type Department Care Team [...] AM EDT Hospital Encounter Non-[place] [address] Arrived documented as of this encounter Visit Diagnoses Not on filedocumented in this encounter Care Teams Medical Office Worker Relationship Specialty Start Date End Date Lolly Oliveira MD [address] [place] [address] PCP - General 07/17/13 documented as of this encounter
--- OUTSIDE RECORDS SUMMARY | 2024-04-19 11:02 | XMS_ITS | Encounter Summary ---
Author Organization [facility] [address] Care Team Providers Care Bulk Clerk Name Role Phone Lolly Oliveira MD Primary Care Provider [phone] Encounter Details Date Type Department Care Team (Late Contact Info) Description 01/14/2022 Telephone Dermatology at [address] [address] Nora Meredith LPN Social [...] Department Care Team (Late Contact Info) Description 07/14/2024 10:00 AM EDT Hospital Encounter [place] [address] Arrived documented as of this encounter Visit Diagnoses Not on filedocumented in this encounter Care Teams Bulk Clerk Relationship Specialty Start Date End Date Lolly Oliveira MD [address] [place] [address] PCP - General 07/17/13 documented as of this encounter
--- OUTSIDE RECORDS SUMMARY | 2024-04-19 11:02 | XMS_ITS | Encounter Summary ---
Author Organization [facility] [place] [address] Care Team Providers Care Technical Sales Consultant Name Role Phone Lolly Oliveira MD Primary Care Provider [phone] Reason for Visit * Reason Comments Follow-up Encounter Details Date Type Department Care Team (Late st Contact Info) Description 06/06/2021 8:45 AM EDT Office Visit Dermatology at [address] [phone] Clay Ramírez MD [address] [facility], [place] [address] Psoriasis, guttate Social History Tobacco Use Types [...] AM EDT Hospital Encounter Non-[place] [address] Arrived documented as of this encounter Visit Diagnoses Diagnosis Psoriasis, guttate Other psoriasis documented in this encounter Care Teams Technical Sales Consultant Relationship Specialty Start Date End Date Lolly Oliveira MD [address] [place] [address] PCP - General 07/17/13 documented as of this encounter
--- OUTSIDE RECORDS SUMMARY | 2024-04-19 11:02 | XMS_ITS | Encounter Summary ---
Author Organization [facility] [place] [address] Care Team Providers Care Customer Engagement Analyst Name Role Phone Lolly Oliveira MD Primary Care Provider [phone] Reason for Visit * Reason Comments Follow-up Encounter Details Date Type Department Care Team (Late st Contact Info) Description 07/02/2022 8:00 AM EDT Office Visit Dermatology at [address] [phone] Clay Ramírez MD [address] [facility], [place] [address] Psoriasis, guttate Social History Tobacco Use Types [...] Hospital Encounter Non-[place] [address] Arrived documented as of this encounter Visit Diagnoses Diagnosis Psoriasis, guttate Other psoriasis documented in this encounter Care Teams Customer Engagement Analyst Relationship Specialty Start Date End Date Lolly Oliveira MD [address] [place] [address] PCP - General 07/17/13 documented as of this encounter
--- OUTSIDE RECORDS SUMMARY | 2024-04-19 11:02 | XMS_ITS | Encounter Summary ---
Author Organization [facility] [place] [address] Care Team Providers Care Call Or Contact Centre Manager Name Role Phone Lolly Oliveira MD Primary Care Provider [phone] Reason for Visit * Auth/Cert (Routine) Specialty Diagnoses / Procedures Referred By Contac t Referred To Contact Diagnoses Left bundle-branch block, unspecified Other cardiomyopathies Left bundle branch block [I44.7]Nonischemic cardiomyopathy [I42.8] Procedures PRG CATH PLMT LEFT HEART CATH & ARTS W/INJ & ANGIO IMG S&I ELECTROPHYSIOLOGY PROCEDURE Lalit Mcmahon MD [facility] [place] [address] [facility] Referral ID Status Reason Start Date Expiration Date Visits Re quested Visits Authorized [id number] 1 1 Encounter Details Date Type Department Care Team (Late st Contact Info) Description 07/23/2022 1:00 PM EDT - 07/23/2022 5:30 PM EDT Surgery [place] [address] Lalit Mcmahon MD [facility] [place] [address] ELECTROPHYSIOLOGY PROCEDURE Social History Tobacco Use Types [...] Luna Mott Patient Age: 71 y.o. Language: Japanese Race: White Ethnicity: Not nor Admit date: 07/23/2022 Discharge date and time: 07/24/22 Attending Physician: Lalit Mcmahon MD Discharge Physician: Lalit Mcmahon MD Follow-up Recommendations for Providers: - s/p MANAGER SEMICONDUCTOR-D implant - post implant QRS 130 ms [...] ??? Solar lentigo Operations/Major Procedures: 07/23/22: [facility] MANAGER SEMICONDUCTOR-D implant History of Presentation: 71 y.o. female with a history of HFrEF, LBBB, QRS >150, NYHA II who is POD#1 of MANAGER SEMICONDUCTOR-D implant ([employer]). Hospital Course: Elective admission for MANAGER SEMICONDUCTOR-D implant Admitted post-implant for pain management, telemetry [...] failure with reduced ejection fraction) [I50.20] MANAGER SEMICONDUCTOR-D implant Admission Condition: good Indication for Admission: [...] g Refills: 3 fluticasone propionate 50 mcg/actuation [place], Suspension Commonly known as: Flonase 1 spray [...] F. The office scheduling phone number is [phone]. ARM MOVEMENT RESTRICTIONS POST-IMPLANT - Do not [...] please call the Cardiac ElectrophysiologyTriage Nurse at [phone], option 3. General Instructions None Discharge References/Attachments [...] F. The office scheduling phone number is [phone]. ARM MOVEMENT RESTRICTIONS POST-IMPLANT - Do not [...] please call the Cardiac ElectrophysiologyTriage Nurse at [phone], option 3. documented in this encounter Medications [...] with spacer fluticasone propionate (Flonase) 50 mcg/actuation [place], Suspension 1 spray by Each Nare route [...] Cardiac Electrophysiology Post-Implant Device Interrogation Luna Mott [id number] 07/24/2022 History: Luna Mott is a 71 y.o. female with a history of HFrEF, LBBB, QRS >150, NYHA II who is POD#1 of MANAGER SEMICONDUCTOR-D implant ([employer]). Overall feels well this morning. Ready [...] WOB Neuro- A&Ox3 Device Interrogation: Data ?? Prime Broker Model # Serial # Generator [employer] [id number] Atrial Lead [employer] [id number] [id number] RV Lead [employer] 0672 [id number] LV Lead [employer] [id number] ?? Diagnostics Pacing Mode: DDD 60-130 Underlying [...] RA RV LV RA RV LV 73 [phone] (LVa) 7.7 13.1 >25 0.4V @ 0.4 ms 0.4V @ 0.4 ms 0.5 V @ 1.0 ms POD#1 CXR: All leads in nominal positioning Impression: 71 y.o. female who is s/p MANAGER SEMICONDUCTOR-D implant for LBBB, NYHA II, HFrEF. - [...] [facility]) Fadi Nunez MD 07/24/2022 Pager: [phone] I met with the patient today and [...] agreement. ? Dr. Lalit Mcmahon, electrophysiology attending ([id number]) * Zaria Wright RN - 07/23/2022 8:28 [...] QRS > 150 ms presents for MANAGER SEMICONDUCTOR-D placement. ROS: Denies recent fevers or chills [...] 0.9) flush 5 mL 5 mL Intravenous [id number] ramos MD ??? sodium chloride 0.9 % [...] QRS > 150 ms presents for MANAGER SEMICONDUCTOR-D placement. Backup would be LBBAP lead. Antibiotics: cefazolin Rationales for, intended benefits and potential risk of planned procedures reviewed. The patient indicated understanding and agreement with the plan. Informed consent signed. Procedure checklist completed. Fadi Nunez MD Cardiac Electrophysiology Fellow [facility] Pager [phone] 07/23/2022 I met with the patient today [...] agreement. ? Dr. Lalit Mcmahon, electrophysiology attending ([id number]) documented in this encounter Miscellaneous Notes * Brief Op Note - Lalit Mcmahon MD - 07/23/2022 4:04 PM EDT Brief Operative Note Patient Name: Luna Mott : [id number] MR#: [id number] Case Date: 07/23/2022 Surgeon: Surgeon(s) and Role: [...] AM EDT Hospital Encounter [place] [address] Arrived Scheduled Orders Name Type Priority Associated Diagnoses Orde r Schedule EKG 12 Lead ECG Routine Cardiac resynchronization therapy defibrillator (MANAGER SEMICONDUCTOR-D) in place One Time for 1 Occurrences [...] (Bezet) 522 ms MUSE SYSTEM Calculated R [place] 78 degrees MUSE SYSTEM Calculated T [place] -71 degrees MUSE SYSTEM INTERPRETATION AV dual-paced [...] who have questions please contact the health before and after school daycare worker that requested your imaging first. [...] patients who have questions please contactthe health before and after school daycare worker that requested your imaging first. Lalit Mcmahon MD IMG DX ORDERABLES * ELECTROPHYSIOLOGY PROCEDURE (07/23/2022 1:11 PM EDT) Anatomical Region Laterality Modality Other Narrative 07/23/2022 4:24 PM EDT Table formatting from the original result was not included. BIVENTRICULAR ICD IMPLANTATION Birth Attendant: Lalit Mcmahon MD Fellow: Fadi Nunez MD [...] lateral branch of the CS in the POLISH view. This branch was cannulated with a [...] the entire procedure. LEAD AND GENERATOR DATA: Prime Broker Model # Serial # Generator [employer] [id number] Atrial Lead [employer] [id number] RV Lead [employer] 0672 [id number] LV Lead [employer] 4674 [id number] PACE/SENSE DATA: Sensed wave (mV) Threshold (V) [...] (cGycm2) 300 CONCLUSIONS: Successful implantation of a [employer] biventricular ICD for primary prevention and treatment of symptoms related to congestive heart failure. Follow up in EP clinic in 1-2 months. Procedures performed: new ICD system ( cpt 56113-E5); implant LV lead at time of ICD insertion (cpt 47744) I have read, edited and approve of this report: Lalit Mcmahon MD S Cardiac Electrophysiology 07/23/2022 4:22 PM Procedure Note Lalit Mcmahon MD - 07/23/2022 BIVENTRICULAR ICD IMPLANTATION Birth Attendant: Lalit Mcmahon MD Fellow: Fadi Nunez MD [...] appropriate lateralbranch of the CS in the POLISH view. This branch was cannulated with a [...] in the entireprocedure. LEAD AND GENERATOR DATA: Prime Broker Model # Serial # Generator [employer] [id number] Atrial Lead [employer] [id number] [id number] RV Lead [employer] 0672 [id number] LV Lead [employer] 4674 [id number] PACE/SENSE DATA: Sensed wave (mV) Threshold (V) [...] (cGycm2) 300 CONCLUSIONS: Successful implantation of a [employer] biventricular ICD forprimary prevention and treatment of symptoms related to congestive heartfailure. Follow up in EP clinic in 1-2 months. Procedures performed: new ICD system ( cpt 99242-Z6); implant LV lead attime of ICD insertion (cpt 44919) I have read, edited and approve of this report: Lalit Mcmahon MD S Cardiac Electrophysiology 07/23/2022 4:22 PM Lalit Mcmahon MD EP PROCEDURE ORDERAB LES * POCT Glucose (07/23/2022 12:54 PM EDT) [facility] Signature Glucose, POC 83 65 - 199 mg/dL [facility] Comment: Supplemental ranges: <140 mg/dL before meals <180 mg/dL all other times of the day Blood 07/23/2022 12:5 4 PM EDT 07/23/2022 12:54 PM EDT Lalit Mcmahon MD POINT OF CARE TEST O RDERABLES Performing Organization Address City/[facility]/ZIP Co de Phone Number [facility] [place] [address] * EKG 12 Lead (07/23/2022 12:33 PM EDT) Ventricular rate 72 BPM MUSE SYSTEM Atrial Rate 72 BPM MUSE SYSTEM P-R Interval 158 ms MUSE SYSTEM QRS Duration 176 ms MUSE SYSTEM Q-T Interval 458 ms MUSE SYSTEM QTC Calculated (Bezet) 501 ms MUSE SYSTEM Calculated P [place] 34 degrees MUSE SYSTEM Calculated R [place] 12 degrees MUSE SYSTEM Calculated T [place] -173 degrees MUSE SYSTEM INTERPRETATION Normal sinus rhythm Left bundle branch block Abnormal ECG No previous ECGs available Confirmed by MD Salome, Lalit ([id number]) on 07/23/2022 1:19:03 PM MUSE SYSTEM 07/23/2022 12:3 3 PM EDT 07/23/2022 1:19 PM EDT Lalit Mcmahon MD ECG ORDERABLES Performing Organization Address [facility] Co de Phone Number MUSE SYSTEM * Differential, Automated (07/23/2022 11:55 AM EDT) Neutrophil % 62.6 % [facility] Neutrophil Absolute 4.14 1.70 - 6.10 x10(3)/[facility] Lymph % 27.0 % [facility] Lymphocytes Abs 1.8 0.9 - 3.2 x10(3)/[facility] Monocyte % 7.3 % [facility] Monocyte Abs 0.5 0.3 - 0.9 x10(3)/[facility] Eos % 2.3 % [facility] Eosinophils Abs 0.2 0.0 - 0.4 x10(3)/[facility] LABORATORY Basophil % 0.6 % [facility] IT[facility] Baso Absolute 0.0 0.0 - 0.1 x10(3)/[facility]AT[facility] Immature Gran % 0.20 % [facility] Comment: Immature granulocytes(IG's)percentage and absolute count will include metamyelocytes, myelocytes, and promyelocytes. Blood smears from CBCs yielding IG's will be scanned manually for concordance. If this scan disagrees with the automated IG or if promyelocytes are noted, a manual differential will be performed. Immature Gran Absolute 0.01 0.00 - 0.04 x10(3)/[facility] Blood 07/23/2022 11:5 5 AM EDT 07/23/2022 12:07 PM EDT Narrative Resulting Agency Comment Spec In Lab Lalit Mcmahon MD HEMATOLOGY ORDERABLE S [facility] [place] [address] * Hemogram (07/23/2022 11:55 AM EDT) White Blood Cell 6.6 4.0 - 9.5 x10(3)/[facility] Red Blood Cell 4.50 4.00 - 5.21 x10(6)/[facility] Hemoglobin 13.7 11.7 - 15.5 g/dL [facility] Hematocrit 42.5 35.7 - 45.8 % [facility] Mean Cell Volume 94.4 82.6 - 94.4 fL [facility] Mean Cell Hemoglobin 30.4 27.1 - 32.0 pg [facility] Mean Cell Hemoglobin Concentration 32.2 31.7 - 35.0 g/dL [facility] Platelet 193 145 - 357 x10(3)/[facility] RDW Standard Deviation 45.5 37.0 - 46.0 fL [facility] RDW coefficient of variation 13.2 11.5 - 14.1 % [facility] Mean Platelet Volume 9.5 7.6 - 12.9 fL [facility] NRBC% auto 0.0 % [facility] NRBC Absolute 0.000 0.000 - 0.000 x10(3)/[facility] Blood 07/23/2022 11:5 5 AM EDT 07/23/2022 12:07 PM EDT Narrative Resulting Agency Comment Spec In Lab Lalit Mcmahon MD HEMATOLOGY ORDERABLE S [facility] [place] [address] * (ABNORMAL) BMP w/fasting Glucose (07/23/2022 11:55 [...] of Diabetes Mellitus, Position Statement from the [place] [employer]. ??Diabetes Care, Volume 33, Supplement 1, Mar 2009 Blood Urea Nitrogen 23(H) 8 - 18 mg/dL [facility] Creatinine 1.07 0.70 - 1.20 mg/dL [facility] Sodium 141 135 - [...] questions. Chloride 106 98 - 107 mmol/L [facility] Carbon Dioxide 26 22 - 31 mmol/L [facility] Anion Gap 9 5 - 15 mmol/L [facility] Calcium 9.7 8.5 - 10.5 mg/dL [facility] Est Glomerular Filtration Rate 55(L) >=60 mL/min/1. 73 m?? [facility] Comment: This patient's estimated [...] Performing Organization Address [facility] Co de Phone Number [facility] [place] [address] * Prothrombin Time (07/23/2022 11:55 AM EDT) [...] MD HEMATOLOGY ORDERABLE S Performing Organization Address City/[facility] Co de Phone Number [facility] [place] [address] documented in this encounter Visit Diagnoses Diagnosis HFrEF (heart failure with reduced ejection fraction)- Primary Left bundle branch block Other left bundle branch block Nonischemic cardiomyopathy Other primary cardiomyopathies Cardiac resynchronization therapy defibrillator (MANAGER SEMICONDUCTOR-D) in place Left bundle branch block Other [...] Routine documented in this encounter Care Teams Call Or Contact Centre Manager Relationship Specialty Start Date End Date Lolly Oliveira MD [address] [place] [address] PCP - General 07/17/13 documented as of this encounter
--- OUTSIDE RECORDS SUMMARY | 2024-04-19 11:02 | XMS_ITS | Encounter Summary ---
[place] [address] Care Team Providers Care Slate Picker Name Role Phone Lolly Oliveira MD Primary Care Provider [phone] Encounter Details Date Type Department Care Team [...] AM EDT Hospital Encounter [place] [address] Arrived documented as of this encounter Visit Diagnoses Not on filedocumented in this encounter Care Teams Slate Picker Relationship Specialty Start Date End Date Lolly Oliveira MD [address] [place] [address] PCP - General 07/17/13 documented as of this encounter
--- OUTSIDE RECORDS SUMMARY | 2024-04-19 11:02 | XMS_ITS | Encounter Summary ---
Author Organization [facility] Address [facility] [place] [address] Care Team Providers Care A And P Technician Name Role Phone Lolly Oliveira MD Primary Care Provider [phone] Encounter Details Date Type Department Care Team (Late st Contact Info) Description 07/16/2022 Telephone Cardiology at [address] [id number] Lalit Mcmahon MD [facility] [place] [address] Social History Tobacco Use Types Packs/Day Years [...] her nonischemic cardiomyopathy. She is scheduled for KNIFE CUTTER-D implantation next week and looks forward to the procedure. We will see each other next week. Lalit Mcmahon MD [facility] Cardiac Electrophysiology 07/16/2022 8:52 AM documented in this encounter Plan of Treatment Upcoming Encounters Date Type Department Care Team (Late st Contact Info) Description 07/14/2024 10:00 AM EDT Hospital Encounter Non-[place] [address] Arrived documented as of this encounter Visit Diagnoses Not on filedocumented in this encounter Care Teams A And P Technician Relationship Specialty Start Date End Date Lolly Oliveira MD [address] [place] [address] PCP - General 07/17/13 documented as of this encounter
--- OUTSIDE RECORDS SUMMARY | 2024-04-19 11:02 | XMS_ITS | Encounter Summary ---
Author Organization [facility] [place] [address] Care Team Providers Care Production Repairer Name Role Phone Lolly Oliveira MD Primary Care Provider [phone] Encounter Details Date Type Department Care Team (Latest Contact Info) Description 07/17/2013 8:40 AM EDT - 07/17/2013 11:59 PM EDT Hospital Encounter XRay at [address] [place] [address] CLIN[address], DR [facility] Discharge Disposition: Home Social [...] AM EDT Hospital Encounter Non-Invasive [place] [address] Arrived documented as of this encounter Visit Diagnoses Not on filedocumented in this encounter Care Teams Production Repairer Relationship Specialty Start Date End Date Lolly Oliveira MD [address] [place] [address] PCP - General 07/17/13 documented as of this encounter
--- OUTSIDE RECORDS SUMMARY | 2024-04-19 11:02 | XMS_ITS | Encounter Summary ---
Author Organization [facility] [place] [address] Care Team Providers Care Supervising Architect Name Role Phone Lolly Oliveira MD Primary Care Provider [phone] Encounter Details Date Type Department Care Team (Late st Contact Info) Description 07/26/2013 [place] [address] Eleno Christian MD Social History [...] AM EDT Hospital Encounter Non-[place] [address] Arrived documented as of this encounter Visit Diagnoses Not on filedocumented in this encounter Care Teams Supervising Architect Relationship Specialty Start Date End Date Lolly Oliveira MD [address] [place] [address] PCP - General 07/17/13 documented as of this encounter
--- OUTSIDE RECORDS SUMMARY | 2024-04-19 11:02 | XMS_ITS | Encounter Summary ---
Author Organization [facility] [place] [place] [address] Care Team Providers Care Freelance Designer Name Role Phone Lolly Oliveira MD Primary Care Provider [phone] Encounter Details Date Type Department Care Team (Latest Contact Info) Description 07/26/2013 9:44 AM EDT - 07/26/2013 11:59 PM EDT Hospital Encounter [place] [address] CLINIC, Lolly So MD [address] [place], [place] [id number] Mammographic microcalcification Discharge Disposition: Home Social History [...] AM EDT Hospital Encounter Non-[place] [address] Arrived documented as of this encounter Procedures [...] are present on specimen digital X-ray. A Provadeiva-Stereo 13 Cylinder marker clip was placed. Cranio-caudal [...] mLs documented in this encounter Care Teams Freelance Designer Relationship Specialty Start Date End Date Lolly Oliveira MD [address] [place] [address] PCP - General 07/17/13 documented as of this encounter
--- OUTSIDE RECORDS SUMMARY | 2024-04-19 11:02 | XMS_ITS | Encounter Summary ---
Author Organization [facility] [place] [address] Care Team Providers Care Serials Librarian Name Role Phone Lolly Oliveira MD Primary Care Provider Reason for Visit * Reason Onset Date Comments Pre Procedure Call 07/01/2022 Encounter Details Date Type Department Care Team (Late st Contact Info) Description 07/01/2022 Telephone Cardiology at [address] [phone] Rosenda Sutton RN Pre Procedure Call Social History Tobacco Use Types Packs/Day Years Used Date Smoking Tobacco: Never Sex and Gender Information Value Date Recorded Sex Assigned at Not on file Gender Identity Not on file Sexual Orientation Not on file documented as of this encounter Miscellaneous Notes * Telephone Encounter - Rosenda Sutton RN - 07/01/2022 9:30 AM EDTSummary: Pre Procedure Call: PEDIATRIC ASSISTANT implant EP PRODUCTION LEADER COORDINATION CHECKLIST Patient Name: Luna Mott Patient Performing Silviculture Teacher: Lalit Mcmahon Referring Provider: Lolly Oliveira Date of Procedure: 07/23/22 Arrival Time/ Case Time: 12:00 pm / 1:00 pm Check In Location: [facility] Desk 4W Date Patient was Called: 07/01/22 Procedure: PEDIATRIC ASSISTANT Company: [employer] Type: PEDIATRIC ASSISTANT-D Laterality: LEFT Orders: Yes Lab Orders: [...] overnight , understands that they will need petroleum transport driver on day of discharge Notified pt that Goff catheter may be placed on day of procedure depending on type & duration of case. documented in this encounter Plan of Treatment Upcoming Encounters Date Type Department Care Team (Late st Contact Info) Description 07/14/2024 10:00 AM EDT Hospital Encounter [place] [address] Arrived documented as of this encounter Visit Diagnoses Not on filedocumented in this encounter Care Teams Serials Librarian Relationship Specialty Start Date End Date Lolly Oliveira MD [address] [place] [address] PCP - General 07/17/13 documented as of this encounter
--- OUTSIDE RECORDS SUMMARY | 2024-04-19 11:02 | XMS_ITS | Encounter Summary ---
[place] [address] Care Team Providers Care Stiff Straw Hat Washer Name Role Phone Lolly Oliveira MD Primary Care Provider [phone] Encounter Details Date Type Department Care Team (Late st Contact Info) Description 04/09/2022 Refill Dermatology at [address] [address] Nora Meredith, ESTIMATION MANAGER Social History Tobacco Use Types Packs/Day [...] AM EDT Hospital Encounter Non-[place] [address] Arrived documented as of this encounter Visit Diagnoses Not on filedocumented in this encounter Care Teams Stiff Straw Hat Washer Relationship Specialty Start Date End Date Lolly Oliveira MD [address] [place] [address] PCP - General 07/17/13 documented as of this encounter
--- OUTSIDE RECORDS SUMMARY | 2024-04-19 11:02 | XMS_ITS | Encounter Summary ---
Author Organization [facility] [place] [address] Care Team Providers Care Director Of Contracts Name Role Phone Lolly Oliveira MD Primary Care Provider [phone] Reason for Referral * Diagnostic Test (Routine) - Closed Specialty Diagnoses / Procedures Referred By Contac t Referred To Contact Radiology Diagnoses Left bundle branch block Nonischemic cardiomyopathy Procedures MRI Cardiac Morphology Function With Flow Velocity Quantification wwo Contrast MRI Cardiac Morphology Function wwo Contrast Lalit Mcmahon MD [facility] [address] [place] [address] Referral ID Status Reason Start Date Expiration Date V isits Requested Visits Authorized [id number] Closed Specialty Service Requested 05/06/2022 11/07/2023 2 1 Encounter Details Date Type Department Care Team (Late st Contact Info) Description 05/06/2022 Orders Only Cardiology at [address] [address] Lalit Mcmahon MD [facility] [place] [address] Left bundle branch block; Nonischemic cardiomyopathy Social [...] AM EDT Hospital Encounter Non-Invasive [place] [address] Arrived documented as of this encounter Results [...] questions please contact the health child care education coordinator that requested your imaging first. ? Electronically signed by: Greyson Herron MD, Radiology [place] ([phone]), at 07/15/2022 9:53 AM Narrative 07/15/2022 9:53 [...] have questions please contactthe health child care education coordinator that requested your imaging first. Electronically signed by: Greyson Herron MD, [facility]([phone]), at 07/15/2022 9:53 AM Lalit Mcmahon MD IMG MRI ORDERABLES documented in this encounter Visit Diagnoses Diagnosis Left bundle branch block Other left bundle branch block Nonischemic cardiomyopathy Other primary cardiomyopathies Left bundle branch block Other left bundle branch block Nonischemic cardiomyopathy Other primary cardiomyopathies documented in this encounter Care Teams Director Of Contracts Relationship Specialty Start Date End Date Lolly Oliveira MD [address] [place] [address] PCP - General 07/17/13 documented as of this encounter
--- OUTSIDE RECORDS SUMMARY | 2024-04-19 11:02 | XMS_ITS | Encounter Summary ---
Author Organization [facility] [place] [address] Care Team Providers Care Day Care Teacher Name Role Phone Lolly Oliveira MD Primary Care Provider [phone] Encounter Details Date Type Department Care Team (Latest Contact Info) Description 01/21/2023 10:00 AM EST - 01/21/2023 11:59 PM EST Hospital Encounter Non-Invasive [place] [phone] Discharge Disposition: Home Social History Tobacco Use [...] with spacer fluticasone propionate (Flonase) 50 mcg/actuation [place], Suspension 1 spray by Each Nare route [...] AM EDT Hospital Encounter Non-Invasive [place] [address] Arrived documented as of this [...] on filedocumented in this encounter Care Teams Day Care Teacher Relationship Specialty Start Date End Date Lolly Oliveira MD [address] [place] [address] PCP - General 07/17/13 documented as of this encounter
--- OUTSIDE RECORDS SUMMARY | 2024-04-19 11:02 | XMS_ITS | Encounter Summary ---
Author Organization [facility] [address] Care Team Providers Care Mail Carriers Supervisor Name Role Phone Lolly Oliveira MD Primary Care Provider [phone] Encounter Details Date Type Department Care Team (Late st Contact Info) Description 11/16/2022 Telephone Cardiology at [address] [phone] Luna Rousseau, RN Social History Tobacco Use [...] BP today was 118/57 at CR at [facility]. Pt is going twice a week [...] AM EDT Hospital Encounter Non-Invasive [place] [address] Arrived documented as of this encounter Visit Diagnoses Not on filedocumented in this encounter Care Teams Mail Carriers Supervisor Relationship Specialty Start Date End Date Lolly Oliveira MD [address] [place] [address] PCP - General 07/17/13 documented as of this encounter
--- OUTSIDE RECORDS SUMMARY | 2024-04-19 11:02 | XMS_ITS | Encounter Summary ---
Author Organization [place] [address] Care Team Providers Care Circular Distributor Name Role Phone Lolly Oliveira MD Primary Care Provider [phone] Reason for Visit * Reason Onset Date Comments Post Procedure Call 07/30/2022 Encounter Details Date Type Department Care Team (Late st Contact Info) Description 07/30/2022 Notes Only Cardiology at [address] [phone] Rosenda Sutton, RN Post Procedure Call Social [...] 07/30/2022 9:59 AM EDTSummary: Post Procedure Call: DETONATOR MAKER implant EP RN Post-Procedure Note: Date of Follow Up Call: 07/30/2022 Spoke With: Patient Procedure Type (choose all that apply): ICD Performing MIRLANDE Mcmahon Date of Procedure: 07/23/2022 Date of Discharge: 07/24/2022 Follow Up EP Visit Scheduled?: No No Follow Up Visit Reason: Follow up outside Outside Location: [facility] Date of Non EP Visit: [...] Note: Follow-up Recommendations for Providers: - s/p DETONATOR MAKER-D implant - post implant QRS 130 [...] AM EDT Hospital Encounter [place] [address] Arrived documented as of this encounter Visit Diagnoses Not on filedocumented in this encounter Care Teams Circular Distributor Relationship Specialty Start Date End Date Lolly Oliveira MD [address] [place] [address] PCP - General 07/17/13 documented as of this encounter
--- OUTSIDE RECORDS SUMMARY | 2024-04-19 11:02 | XMS_ITS | Encounter Summary ---
Author Organization [facility] Address [facility] [place] [address] Care Team Providers Care Set Making Machine Operator Name Role Phone Lolly Oliveira MD Primary Care Provider [phone] Reason for Visit * Auth/Cert (Routine) Specialty Diagnoses / Procedures Referred By Contac t Referred To Contact Diagnoses Left bundle-branch block, unspecified Other cardiomyopathies Left bundle branch block [I44.7]Nonischemic cardiomyopathy [I42.8] Procedures PRG CATH PLMT LEFT HEART CATH & ARTS W/INJ & ANGIO IMG S&I ELECTROPHYSIOLOGY PROCEDURE Lalit Mcmahon MD [facility] [place] [address] [facility] Referral ID Status Reason Start Date Expiration Date Visits Re quested Visits Authorized [id number] 1 1 Encounter Details Date Type Department Care Team (Late st Contact Info) Description 07/23/2022 1:08 PM EDT Anesthesia Event [place] [address] Monae Gonzalez MD [facility] ANESTHESIOLOGY [place] [address] Maria Elena Snyder CRNA [facility] [place]HESIOLOG[place] [address] Anesthesia Record Procedure Summary Procedure Name Responsible [...] 1307; median cubital vein (antecubital fossa), right; vppp-knw-tkrndu catheter system; Anatomical Landmarks; 20 gauge; 07/24/22; [...] 1343; metacarpal vein (top of hand), left; pfcx-cjb-maaxae catheter system; Anatomical Landmarks; US Not Used; [...] Summary Date: 07/23/22 Room / Location: [facility], [facility] A-LAB ROOM 3 / [facility] EP LABS Anesthesia Start: 1308 Anesthesia Stop: 1633 Procedure: ELECTROPHYSIOLOGY PROCEDURE (Left) Diagnosis: Left bundle branch block Nonischemic cardiomyopathy (Left bundle branch block [I44.7]Nonischemic cardiomyopathy [I42.8]) Providers: Lalit Mcmahon MD Responsible Provider: Monae Gonzalez MD Anesthesia Type: general ASA Status: 4 All Anesthesia Providers: Anesthesiologist: Monae Gonzalez MD; Dominique Sen MD KETTLE OPERATOR HEAD: Maria Elena Snyder CRNA Vitals Value Taken Time BP 131/46 07/23/22 1700 Temp 36.7 ??C (98.1 ??F) 07/23/22 1627 Pulse 67 07/23/22 1703 Resp 14 07/23/22 1703 SpO2 98 % 07/23/22 1703 Pain Level Vitals shown include unvalidated device data. Patient Location: PACU/[facility] Level of Consciousness: Conscious but [...] and Nonischemic CM (EF 15-20%)who presents for SUPPLY CHAIN SPECIALIST-D. No prior anesthetic records. Pt states that [...] daughter/son and patient who. Plan discussed with KETTLE OPERATOR HEAD. Anesthesia Screening documented in this encounter Plan of Treatment Upcoming Encounters Date Type Department Care Team (Late st Contact Info) Description 07/14/2024 10:00 AM EDT Hospital Encounter Non-Invasive [place] [address] Arrived documented as of [...] mg documented in this encounter Care Teams Set Making Machine Operator Relationship Specialty Start Date End Date Lolly Oliveira MD [address] [place] [address] PCP - General 07/17/13 documented as of this encounter
--- OUTSIDE RECORDS SUMMARY | 2024-04-19 11:02 | XMS_ITS | Encounter Summary ---
Author Organization [facility] [place] [address] Care Team Providers Care No Experience Name Role Phone Lolly Oliveira MD Primary Care Provider [phone] Reason for Visit * Reason Onset Date Comments Other 07/24/2022 Implanted Cardia c Device Teaching/Education Encounter Details Date Type Department Care Team (Late st Contact Info) Description 07/24/2022 Notes Only Cardiology at [address] [phone] Letha Arroyo Other (Implanted Cardiac Device Teaching/Education) [...] to call the Cardiac Device Clinic at [phone] with any questions. Plan: Post op check: [...] AM EDT Hospital Encounter [place] [address] Arrived documented as of this encounter Visit Diagnoses Not on filedocumented in this encounter Care Teams No Experience Relationship Specialty Start Date End Date Lolly Oliveira MD [address] [place] [address] PCP - General 07/17/13 documented as of this encounter
--- OUTSIDE RECORDS SUMMARY | 2024-04-19 11:02 | XMS_ITS | Encounter Summary ---
Author Organization [facility] [place] [address] Care Team Providers Care Import Export Manager Name Role Phone Lolly Oliveira MD Primary Care Provider [phone] Reason for Referral * Diagnostic Test (Routine) - Closed Specialty Diagnoses / Procedures Referred By Contac t Referred To Contact Radiology Diagnoses Left bundle branch block Nonischemic cardiomyopathy Procedures MRI Cardiac Morphology Function With Flow Velocity Quantification [facility] Contrast MRI Cardiac Morphology Function wwo Contrast Lalit Mcmahon MD [facility] [address] [place] [address] Referral ID Status Reason Start Date Expiration Date V isits Requested Visits Authorized [id number] Closed Specialty Service Requested 05/06/2022 11/07/2023 2 1 Reason for Visit * Diagnostic Test (Routine) - Closed Specialty Diagnoses / Procedures Referred By Contac t Referred To Contact Radiology Diagnoses Left bundle branch block Nonischemic cardiomyopathy Procedures MRI Cardiac Morphology Function With Flow Velocity Quantification o Contrast MRI Cardiac Morphology Function wwo Contrast Lalti Mcmahon MD [facility] [place] [address] [place] [address] Referral ID Status Reason Start Date Expiration Date V isits Requested Visits Authorized [id number] Closed Specialty Service Requested 05/06/2022 11/07/2023 2 1 Encounter Details Date Type Department Care Team (Latest Contact Info) Description 07/14/2022 9:08 AM EDT Hospital Encounter MRI at [facility] [place] [phone] Lalit Mcmahon MD [facility] [address] [place] [address] Left bundle branch block; Nonischemic cardiomyopathy Discharge [...] with spacer fluticasone propionate (Flonase) 50 mcg/actuation [place], Suspension 1 spray by Each Nare route [...] : 1950 [address] [facility] [address] Female [phone] (home) No relevant phone numbers on file. Lolly Oliveira MD None Allergies Allergen Reactions ??? Sulfa (Sulfonamide Antibiotics) Date/Time of call: July 07, 2022/11:03 AM/ PREVIOUS MRI SCAN? HEIGHT: WEIGHT: SCHEDULED SCAN: MRI CARDIAC MORPHOLOGY FUNCTION WITH FLOW VELOCITY QUANTIFICATION WWO CONTRAST [[id number]] Order Questions Answers Where will study be performed? [facility] Radiology [120] SUBJECTIVE: Very Claustrophobic [...] ( K[place] ) You must have a special client bus driver present when you check in. This patient has been informed that they require a special client bus driver to drive them home after this procedure. In the absence of a special client bus driver, IR will not be able to sedate for your scan. Pt verbalized understanding of these instructions during the pre-procedure education via phone. Yes Name of special client bus driver: Daughter Phone number: PRIOR SCAN DATE/S SEDATION TYPE SUCCESSFUL 07/14/22 MRI Cardiac Morphology Function with Flow Velocity Quantification wwo Contrast Ativan 1mg x 1 dose Pass Revised 08/03/17 documented in this encounter Plan of Treatment Upcoming Encounters Date Type Department Care Team (Late st Contact Info) Description 07/14/2024 10:00 AM EDT Hospital Encounter [place] [address] Arrived documented as of this encounter Procedures [...] questions please contact the health child care development specialist that requested your imaging first. ? Electronically signed by: Greyson Herron MD, [facility] ([phone]), at 07/15/2022 9:53 AM Narrative 07/15/2022 9:53 [...] have questions please contactthe health child care development specialist that requested your imaging first. [...] mg documented in this encounter Care Teams Import Export Manager Relationship Specialty Start Date End Date Lolly Oliveira MD [address] [place] [address] PCP - General 07/17/13 documented as of this encounter
--- OUTSIDE RECORDS SUMMARY | 2024-04-19 11:02 | XMS_ITS | Encounter Summary ---
[place] [address] Care Team Providers Care Acute Care Physician Name Role Phone Lolly Oliveira MD Primary Care Provider [phone] Encounter Details Date Type Department Care Team (Latest Contact Info) Description 07/26/2013 9:45 AM EDT - 07/26/2013 11:59 PM EDT Hospital [place] [address] Mammographic microcalcification Social History Tobacco Use Types [...] AM EDT Hospital Encounter Non-[place] [address] Arrived documented as of this encounter Procedures Procedure Name Priority Date/Time Associated Diagnosis Comments SURGICAL PATHOLOGY REPORT Routine 07/26/2013 12:12 PM EDT MAMMO SPECIMEN IMAGING DURING BIOPSY Routine 07/26/2013 11:58 AM EDT Mammographic microcalcification documented in this encounter Results * Surgical Pathology Report (07/26/2013 12:12 PM EDT) Final Diagnosis ? [facility] ? Provider: ?? ELENO CHRISTIAN ?? Pt. Name: ?? JING MOTT ? Acc #: ?[id number] ?Pt. ? Col Date: ?? 07/26/2013 ? [...] Name: ?? JING MOTT ? Acc #: ?[id number] ?Pt. ? Col Date: ?? 07/26/2013 ? [...] MD PATHOLOGY/CYTOLOGY O RDERABLES Performing Organization Address City/State/[facility] Co de Phone Number [facility] [place] [phone] * Mammo Specimen Imaging During Biopsy (07/26/2013 [...] microcalcification documented in this encounter Care Teams Acute Care Physician Relationship Specialty Start Date End Date Lolly Oliveira MD [address] [place] [address] PCP - General 07/17/13 documented as of this encounter
--- OUTSIDE RECORDS SUMMARY | 2024-04-19 11:02 | XMS_ITS | Encounter Summary ---
Author Organization [place] [address] Care Team Providers Care Casino Duty Manager Name Role Phone Lolly Oliveira MD Primary Care Provider [phone] Encounter Details Date Type Department Care Team (Latest Contact Info) Description 07/26/2013 9:45 AM EDT - 07/26/2013 11:59 PM EDT Hospital En[place] [address] Mammographic microcalcification Social History Tobacco Use Types [...] AM EDT Hospital Encounter Non-[place] [address] Arrived documented as of this encounter Procedures [...] microcalcification documented in this encounter Care Teams Casino Duty Manager Relationship Specialty Start Date End Date Lolly Oliveira MD [address] [place] [address] PCP - General 07/17/13 documented as of this encounter
--- OUTSIDE RECORDS SUMMARY | 2024-04-19 11:02 | XMS_ITS | Encounter Summary ---
Author Organization [facility] [place] [address] Care Team Providers Care Supply Chain Program Manager Name Role Phone Lolly Oliveira MD Primary Care Provider [phone] Reason for Visit * Reason Comments Follow-up Encounter Details Date Type Department Care Team (Late st Contact Info) Description 05/21/2022 8:00 AM EDT Office Visit Dermatology at [address] [phone] Clay Ramírez MD [address] [facility] [place] [address] Psoriasis, guttate Social History Tobacco Use Types [...] AM EDT Hospital Encounter Non-[place] [address] Arrived documented as of this encounter Visit Diagnoses Diagnosis Psoriasis, guttate Other psoriasis documented in this encounter Care Teams Supply Chain Program Manager Relationship Specialty Start Date End Date Lolly Oliveira MD [address] [place] [address] PCP - General 07/17/13 documented as of this encounter
--- OUTSIDE RECORDS SUMMARY | 2024-04-19 11:02 | XMS_ITS | Encounter Summary ---
Author Organization [facility] [place] [address] Care Team Providers Care Huc Name Role Phone Unavailable Primary Care Provider Unavailabl e Encounter Details Date Type Department Care Team (Late st Contact Info) Description 07/14/2013 External Results XRay at [address] [place] [address] Provider, Scanning Social History Tobacco Use Types [...] AM EDT Hospital Encounter Non-Invasive [place] [address] Arrived documented as of this encounter Procedures [...]
--- OUTSIDE RECORDS SUMMARY | 2024-04-19 11:02 | XMS_ITS | Encounter Summary ---
[place] [address] Care Team Providers Care Sales Promotion Coordinator Name Role Phone Lolly Oliveira MD Primary Care Provider [phone] Encounter Details Date Type Department Care Team [...] AM EDT Hospital Encounter Non[place] [address] Arrived documented as of this encounter Visit Diagnoses Not on filedocumented in this encounter Care Teams Sales Promotion Coordinator Relationship Specialty Start Date End Date Lolly Oliveira MD [address] [place] [address] PCP - General 07/17/13 documented as of this encounter
--- OUTSIDE RECORDS SUMMARY | 2024-04-19 11:02 | XMS_ITS | Encounter Summary ---
Author Organization [facility] [place] [address] Care Team Providers Care Automobile Relocation Engineer Name Role Phone Lolly Oliveira MD Primary Care Provider [phone] Reason for Visit * Diagnostic Test (Routine) - Closed Specialty Diagnoses / Procedures Referred By Contac t Referred To Contact Radiology Diagnoses Left bundle branch block Nonischemic cardiomyopathy Procedures MRI Cardiac Morphology Function With Flow Velocity Quantification wwo Contrast MRI Cardiac Morphology Function wwo Contrast Lalit Mcmahon MD [facility] [place] [address] [facility] [place] [address] Referral ID Status Reason Start Date Expiration Date V isits Requested Visits Authorized [id number] Closed Specialty Service Requested 05/06/2022 11/07/2023 2 1 Encounter Details Date Type Department Care Team (Latest Contact Info) Description 07/14/2022 9:09 AM EDT - 07/14/2022 11:59 PM EDT Hospital [place] [address] Lalit Mcmahon MD [facility] [place] [address] Discharge Disposition: Home Social History Tobacco Use [...] with spacer fluticasone propionate (Flonase) 50 mcg/actuation [place], Suspension 1 spray by Each Nare route [...] AM EDT Hospital Encounter Non-[place] [address] Arrived documented as of this [...] mLs documented in this encounter Care Teams Automobile Relocation Engineer Relationship Specialty Start Date End Date Lolly Oliveira MD [address] [place] [address] PCP - General 07/17/13 documented as of this encounter
--- OUTSIDE RECORDS SUMMARY | 2024-04-19 11:02 | XMS_ITS | Encounter Summary ---
Author Organization [facility] Address [facility] [place] [address] Care Team Providers Care Auto Painter Helper Name Role Phone Lolly Oliveira MD Primary Care Provider Encounter Details Date Type Department Care Team (Late st Contact Info) Description 11/11/2022 Orders Only Cardiology at [address] [phone] Lalit Mcmahon MD [facility] [place] [address] Nonischemic cardiomyopathy Social History Tobacco Use Types [...] AM EDT Hospital Encounter Non-[place] [address] Arrived documented as of this encounter Visit Diagnoses Diagnosis Nonischemic cardiomyopathy Other primary cardiomyopathies documented in this encounter Care Teams Auto Painter Helper Relationship Specialty Start Date End Date Lolly Oliveira MD [address] [place] [address] PCP - General 07/17/13 documented as of this encounter
--- OUTSIDE RECORDS SUMMARY | 2024-04-19 11:02 | XMS_ITS | Encounter Summary ---
Author Organization [facility] [place] [address] Care Team Providers Care Early Childhood Education Specialist Name Role Phone Lolly Oliveira MD Primary Care Provider [phone] Reason for Visit * Reason Comments Psoriasis Encounter Details Date Type Department Care Team (Late st Contact Info) Description 04/09/2022 1:45 PM EST Office Visit Dermatology at [address] [address] Clay Ramírez MD [address] [facility] [place] [address] Psoriasis, guttate Social History Tobacco Use Types [...] AM EDT Hospital Encounter Non[place] [address] Arrived documented as of this encounter Visit Diagnoses Diagnosis Psoriasis, guttate Other psoriasis documented in this encounter Care Teams Early Childhood Education Specialist Relationship Specialty Start Date End Date Lolly Oliveira MD [address] [place] [address] PCP - General 07/17/13 documented as of this encounter
--- OUTSIDE RECORDS SUMMARY | 2024-04-19 11:02 | XMS_ITS | Encounter Summary ---
Author Organization [facility] [place] [address] Care Team Providers Care Suede Brusher Name Role Phone Lolly Oliveira MD Primary Care Provider [phone] Reason for Visit * Reason Comments Skin Check Encounter Details Date Type Department Care Team (Late st Contact Info) Description 11/23/2014 10:00 AM EDT Office Visit Dermatology at [address] [address] Clay Ramírez MD [address] [facility] [place] [address] Dermatofibroma; Nevus; Solar lentigo Discharge Disposition: Home [...] AM EDT Hospital Encounter Non[place] [address] Arrived documented as of this encounter Visit Diagnoses Diagnosis Dermatofibroma Benign neoplasm of skin, site unspecified Nevus Benign neoplasm of skin, site unspecified Solar lentigo Other dyschromia documented in this encounter Care Teams Suede Brusher Relationship Specialty Start Date End Date Lolly Oliveira MD [address] [place] [address] PCP - General 07/17/13 documented as of this encounter
--- OUTSIDE RECORDS SUMMARY | 2024-04-19 11:02 | XMS_ITS | Encounter Summary ---
Author Organization [facility] [place] [address] Care Team Providers Care Applique Sewer Name Role Phone Unavailable Primary Care Provider Unavailabl e Encounter Details Date Type Department Care Team (Late st Contact Info) Description 07/04/2012 [place] [address] Eelno Christian MD Social History Tobacco Use Types [...] Encounter Non-[place] [address] Arrived documented as of this encounter Procedures [...] is a Non-reportable exam Eleno Christian MD G FILM LIBRARY ORD ERABLES documented in this encounter Visit Diagnoses Not on filedocumented in this encounter
--- OUTSIDE RECORDS SUMMARY | 2024-04-19 11:02 | XMS_ITS | Encounter Summary ---
[place] [address] Care Team Providers Care Wire Frame Lamp Shade Maker Name Role Phone Lolly Oliveira MD Primary Care Provider [phone] Encounter Details Date Type Department Care Team (Late st Contact Info) Description 07/17/2013 [place] [phone] Lolly Oliveira MD [address] [place], [place] [id number] Social History Tobacco Use Types Packs/Day Years [...] AM EDT Hospital Encounter Non-[place] [address] Arrived documented as of this encounter Procedures [...] (PERFORMED ON 07/06/13 AND 07/14/13) FROM [facility] DATED 07/17/13: ?? DIAGNOSTIC IMAGING [...] OUTSIDE MAMMOGRAMS ([facility]FORMED [facility] 07/06/13 AND [facility]14[facility]13[facility]: DIAGNOSTIC IMAGING [...] filedocumented in this encounter Care Teams Wire Frame Lamp Shade Maker Relationship Specialty Start Date End Date Lolly Oliveira MD [address] [place] [address] PCP - General 07/17/13 documented as of this encounter
--- OUTSIDE RECORDS SUMMARY | 2024-04-19 11:02 | XMS_ITS | Encounter Summary ---
Author Organization [facility] [place] [address] Care Team Providers Care Clinical Lab Scientist Name Role Phone Unavailable Primary Care Provider Unavailabl e Encounter Details Date Type Department Care Team (Late st Contact Info) Description 07/14/2013 [place] [address] Eleno Christian MD Social History Tobacco Use [...] AM EDT Hospital Encounter [place] [address] Arrived documented as of this encounter Visit Diagnoses Not on filedocumented in this encounter
--- OUTSIDE RECORDS SUMMARY | 2024-04-19 11:02 | XMS_ITS | Encounter Summary ---
[place] [address] Care Team Providers Care Able Seaman Name Role Phone Lolly Oliveira MD Primary Care Provider [phone] Encounter Details Date Type Department Care Team [...] EDT Hospital Encounter Non-Invasive [place] [phone] Arrived documented as of this encounter Visit Diagnoses Not on filedocumented in this encounter Care Teams Able Seaman Relationship Specialty Start Date End Date Lolly Oliveira MD [address] [place] [address] PCP - General 07/17/13 documented as of this encounter
--- OUTSIDE RECORDS SUMMARY | 2024-04-19 11:02 | XMS_ITS | Encounter Summary ---
Author Organization [facility] Address [facility] [place] [address] Care Team Providers Care Lens Maker Name Role Phone Lolly Oliveira MD Primary Care Provider [phone] Reason for Visit * Auth/Cert (Routine) Specialty Diagnoses / Procedures Referred By Contac t Referred To Contact Diagnoses Left bundle-branch block, unspecified Other cardiomyopathies Left bundle branch block [I44.7]Nonischemic cardiomyopathy [I42.8] Procedures PRG CATH PLMT LEFT HEART CATH & ARTS W/INJ & ANGIO IMG S&I ELECTROPHYSIOLOGY PROCEDURE Lalit Mcmahon MD [facility] [place] [address] [facility] Referral ID Status Reason Start Date Expiration Date Visits Re quested Visits Authorized [id number] 1 1 Encounter Details Date Type Department Care Team (Latest Contact Info) Description 07/23/2022 11:39 AM EDT - 07/24/2022 10:23 AM EDT Hospital [place] [id number] Lalit Mcmahon MD [facility] [place] [address] Left bundle branch block; Nonischemic cardiomyopathy; Cardiac resynchronization therapy defibrillator (HAND CLOTH EXAMINER-D) in place Discharge Disposition: Home Social History [...] Luna Mott Patient Age: 71 y.o. Language: Georgian Race: White Ethnicity: Not nor Admit date: 07/23/2022 Discharge date and time: 07/24/22 Attending Physician: Lalit Mcmahon MD Discharge Physician: Lalit Mcmahon MD Follow-up Recommendations for Providers: - s/p HAND CLOTH EXAMINER-D implant - post implant QRS 130 ms [...] ??? Solar lentigo Operations/Major Procedures: 07/23/22: [facility] HAND CLOTH EXAMINER-D implant History of Presentation: 71 y.o. female with a history of HFrEF, LBBB, QRS >150, NYHA II who is POD#1 of HAND CLOTH EXAMINER-D implant ([employer]). Hospital Course: Elective admission for HAND CLOTH EXAMINER-D implant Admitted post-implant for pain management, telemetry [...] (heart failure with reduced ejection fraction) [I50.20] HAND CLOTH EXAMINER-D implant Admission Condition: good Indication for Admission: [...] g Refills: 3 fluticasone propionate 50 mcg/actuation [place], Suspension Commonly known as: Flonase 1 spray [...] incision. Make sure to use a cloth painter (such as a towel) in between the [...] F. The office scheduling phone number is [phone]. ARM MOVEMENT RESTRICTIONS POST-IMPLANT - Do not [...] please call the Cardiac ElectrophysiologyTriage Nurse at [phone], option 3. General Instructions None Discharge References/Attachments [...] incision. Make sure to use a cloth painter (such as a towel) in between the [...] F. The office scheduling phone number is [phone]. ARM MOVEMENT RESTRICTIONS POST-IMPLANT - Do not [...] please call the Cardiac ElectrophysiologyTriage Nurse at [phone], option 3. documented in this encounter Medications [...] with spacer fluticasone propionate (Flonase) 50 mcg/actuation [place], Suspension 1 spray by Each Nare route [...] Cardiac Electrophysiology Post-Implant Device Interrogation Luna Mott [id number] 07/24/2022 History: Luna Mott is a 71 y.o. female with a history of HFrEF, LBBB, QRS >150, NYHA II who is POD#1 of HAND CLOTH EXAMINER-D implant ([employer]). Overall feels well this morning. Ready [...] Neuro- A&Ox3 Device Interrogation: Data ?? Director Religious Education Model # Serial # Generator [employer] [id number] Atrial Lead [employer] [id number] RV Lead [employer] 0672 [id number] LV Lead [employer] [id number] ?? Diagnostics Pacing Mode: DDD 60-130 Underlying Rhythm: [place] Atrial Episodes: None Ventricular Episodes: None FINAL PROGRAMMING: Pacing: Mode Lower rate (ppm) Upper rate (ppm) ?? DDD 60 130 VF: Rate (bpm) #Antitachycardia pacing First shock energy (J) ?? 200 Quick convert 41 VT: 170 Monitor only Monitor only ? Battery and Leads Impedances (ohms) Sensing (mV) Thresholds HV RA RV LV RA RV LV RA RV LV 73 435 023 4376 (LVa) 7.7 13.1 >25 0.4V @ 0.4 ms 0.4V @ 0.4 ms 0.5 V @ 1.0 ms POD#1 CXR: All leads in nominal positioning Impression: 71 y.o. female who is s/p HAND CLOTH EXAMINER-D implant for LBBB, NYHA II, HFrEF. - [...] [facility]) Fadi Nunez MD 07/24/2022 Pager: [phone] I met with the patient today and [...] agreement. ? Dr. Lalit Mcmahon, electrophysiology attending ([id number]) * Zaria Wright RN - 07/23/2022 8:28 [...] HF, QRS > 150 ms presents for HAND CLOTH EXAMINER-D placement. ROS: Denies recent fevers or chills [...] 0.9) flush 5 mL 5 mL Intravenous [id number] ramos MD ??? sodium chloride 0.9 % [...] HF, QRS > 150 ms presents for HAND CLOTH EXAMINER-D placement. Backup would be LBBAP lead. Antibiotics: cefazolin Rationales for, intended benefits and potential risk of planned procedures reviewed. The patient indicated understanding and agreement with the plan. Informed consent signed. Procedure checklist completed. Fadi Nunez MD Cardiac Electrophysiology Fellow [facility] Pager [phone] 07/23/2022 I met with the patient today [...] agreement. ? Dr. Lalit Mcmahon, electrophysiology attending ([id number]) documented in this encounter Miscellaneous Notes * Brief Op Note - Lalit Mcmahon MD - 07/23/2022 4:04 PM EDT Brief Operative Note Patient Name: Luna Mott : [id number] MR#: [id number] Case Date: 07/23/2022 Surgeon: Surgeon(s) and Role: [...] AM EDT Hospital Encounter [place] [address] Arrived Scheduled Orders Name Type Priority Associated Diagnoses Orde r Schedule EKG 12 Lead ECG Routine Cardiac resynchronization therapy defibrillator (HAND CLOTH EXAMINER-D) in place One Time for 1 Occurrences [...] (Bezet) 522 ms MUSE SYSTEM Calculated R [place] 78 degrees MUSE SYSTEM Calculated T [place] -71 degrees MUSE SYSTEM INTERPRETATION AV dual-paced [...] titles that requested your imaging first. ? Narrative [...] job titles that requested your imaging first. Lalit Mcmahon MD IMG DX ORDERABLES * ELECTROPHYSIOLOGY PROCEDURE (07/23/2022 1:11 PM EDT) Anatomical Region Laterality Modality Other Narrative 07/23/2022 4:24 PM EDT Table formatting from the original result was not included. BIVENTRICULAR ICD IMPLANTATION Hospitality Services Manager: Lalit Mcmahon MD Fellow: Fadi Nunez [...] lateral branch of the CS in the THAI view. This branch was cannulated with a [...] entire procedure. LEAD AND GENERATOR DATA: Director Religious Education Model # Serial # Generator [employer] [id number] Atrial Lead [employer] [id number] [id number] RV Lead [employer] 0672 [id number] LV Lead [employer] 4674 [id number] PACE/SENSE DATA: Sensed wave (mV) Threshold (V) [...] (cGycm2) 300 CONCLUSIONS: Successful implantation of a [employer] biventricular ICD for primary prevention and treatment of symptoms related to congestive heart failure. Follow up in EP clinic in 1-2 months. Procedures performed: new ICD system ( cpt 08134-Q3); implant LV lead at time of ICD insertion (cpt 23963) I have read, edited and approve of this report: Lalit Mcmahon MD S Cardiac Electrophysiology 07/23/2022 4:22 PM Procedure Note Lalit Mcmahon MD - 07/23/2022 BIVENTRICULAR ICD IMPLANTATION Hospitality Services Manager: Lalit Mcmahon MD Fellow: Fadi Nunez [...] appropriate lateralbranch of the CS in the THAI view. This branch was cannulated with a [...] the entireprocedure. LEAD AND GENERATOR DATA: Director Religious Education Model # Serial # Generator [employer] [id number] Atrial Lead [employer] 7841 [id number] RV Lead [employer] 0672 [id number] LV Lead [employer] 4674 [id number] PACE/SENSE DATA: Sensed wave (mV) Threshold (V) [...] (cGycm2) 300 CONCLUSIONS: Successful implantation of a [employer] biventricular ICD forprimary prevention and treatment of symptoms related to congestive heartfailure. Follow up in EP clinic in 1-2 months. Procedures performed: new ICD system ( cpt 74285-X5); implant LV lead attime of ICD insertion (cpt 54849) I have read, edited and approve of this report: Lalit Mcmahon MD [facility] Cardiac Electrophysiology 07/23/2022 4:22 PM Lalit Mcmahon MD EP PROCEDURE ORDERAB LES * POCT Glucose (07/23/2022 12:54 PM EDT) Glucose, POC 83 65 - 199 mg/dL [facility] Comment: Supplemental ranges: <140 mg/dL before meals <180 mg/dL all other times of the day Blood 07/23/2022 12:5 4 PM EDT 07/23/2022 12:54 PM EDT Lalit Mcmahon MD POINT OF CARE TEST O RDERABLES Performing Organization Address [facility] Co de Phone Number [facility] [place] [address] * EKG 12 Lead (07/23/2022 12:33 PM EDT) Ventricular rate 72 BPM MUSE SYSTEM Atrial Rate 72 BPM MUSE SYSTEM P-R Interval 158 ms MUSE SYSTEM QRS Duration 176 ms MUSE SYSTEM Q-T Interval 458 ms MUSE SYSTEM QTC Calculated (Bezet) 501 ms MUSE SYSTEM Calculated P [place] 34 degrees MUSE SYSTEM Calculated R [place] 12 degrees MUSE SYSTEM Calculated T [place] -173 degrees MUSE SYSTEM INTERPRETATION Normal sinus rhythm Left bundle branch block Abnormal ECG No previous ECGs available Confirmed by MD Salome, Lalit ([id number]) on 07/23/2022 1:19:03 PM MUSE SYSTEM 07/23/2022 12:3 3 PM EDT 07/23/2022 1:19 PM EDT Lalit Mcmahon MD ECG ORDERABLES Performing Organization Address [facility] de Phone Number MUSE SYSTEM * Differential, Automated (07/23/2022 11:55 AM EDT) Neutrophil % 62.6 % [facility] Neutrophil Absolute 4.14 1.70 - 6.10 x10(3)/[facility] Lymph % 27.0 % [facility] Lymphocytes Abs 1.8 0.9 - 3.2 x10(3)/[facility] Monocyte % 7.3 % [facility] Monocyte Abs 0.5 0.3 - 0.9 x10(3)/[facility] Eos % 2.3 % [facility] Eosinophils Abs 0.2 0.0 - 0.4 x10(3)/[facility] Basophil % 0.6 % [facility] IT[facility] Baso Absolute 0.0 0.0 - 0.1 x10(3)/[facility] Immature Gran % 0.20 % [facility] Comment: Immature granulocytes(IG's)percentage and absolute [...] Lalit Mcmahon MD HEMATOLOGY ORDERABLE S [facility] [place] [address] * Hemogram (07/23/2022 11:55 AM EDT) White Blood Cell 6.6 4.0 - 9.5 x10(3)/[facility] Red Blood Cell 4.50 4.00 - 5.21 x10(6)/[facility] Hemoglobin 13.7 11.7 - 15.5 g/dL [facility] Hematocrit 42.5 35.7 - 45.8 % [facility] Mean Cell Volume 94.4 82.6 - 94.4 fL [facility] Mean Cell Hemoglobin 30.4 27.1 - 32.0 pg [facility] Mean Cell Hemoglobin Concentration 32.2 31.7 - 35.0 g/dL [facility] Platelet 193 145 - 357 x10(3)/[facility] RDW Standard Deviation 45.5 37.0 - 46.0 fL [facility] RDW coefficient of variation 13.2 11.5 - 14.1 % [facility] Mean Platelet Volume 9.5 7.6 - 12.9 fL [facility] NRBC% auto 0.0 % [facility] NRBC Absolute 0.000 0.000 - 0.000 x10(3)/[facility] Blood 07/23/2022 11:5 5 AM EDT 07/23/2022 12:07 PM EDT Narrative Resulting Agency Comment Spec In Lab Lalit Mcmahon MD HEMATOLOGY ORDERABLE S [facility] [address] [place] [address] * (ABNORMAL) BMP w/fasting Glucose (07/23/2022 11:55 AM EDT) Glucose Fasting 110(H) 65 - 99 mg/dL [facility] Comment: ?Fasting* Glucose Interpretive Criteria [...] Urea Nitrogen 23(H) 8 - 18 mg/dL [facility] Creatinine 1.07 0.70 - 1.20 mg/dL [facility] Sodium 141 135 - 145 mmol/L [facility] Potassium 4.8 3.5 - 5.0 mmol/L [facility] Comment: Please note: ??Patients with WBC >100,000 may have falsely elevated Potassium levels. ??For accurate Potassium quantification in these patients send serum separator tube (gold top) for subsequent determinations. ??Contact the Clinical Chemistry Laboratory if there are any questions. Chloride 106 98 - 107 mmol/L [facility] Carbon Dioxide 26 22 - 31 mmol/L [facility] Anion Gap 9 5 - 15 mmol/L [facility] Calcium 9.7 8.5 - 10.5 mg/dL [facility] Est Glomerular Filtration Rate 55(L) >=60 mL/min/1. 73 m?? [facility] Comment: This patient's estimated GFR [...] Mcmahon MD CHEMISTRY ORDERABLES Performing Organization Address City/[facility] Co de Phone Number [facility] [place] [address] * Prothrombin Time (07/23/2022 11:55 AM EDT) Prothrombin Time 11.7 9.4 - 12.5 sec [facility] International Normalization Ratio 1.0 [facility] Comment: An INR <2.0 indicates [...] MD HEMATOLOGY ORDERABLE S Performing Organization Address City/[facility] Co de Phone Number [facility] [place] [address] documented in this encounter Visit Diagnoses Diagnosis HFrEF (heart failure with reduced ejection fraction)- Primary Left bundle branch block Other left bundle branch block Nonischemic cardiomyopathy Other primary cardiomyopathies Cardiac resynchronization therapy defibrillator (HAND CLOTH EXAMINER-D) in place Left bundle branch block Other [...] Routine documented in this encounter Care Teams Lens Maker Relationship Specialty Start Date End Date Lolly Oliveira MD [address] [place] [address] PCP - General 07/17/13 documented as of this encounter
--- OUTSIDE RECORDS SUMMARY | 2024-04-19 11:02 | XMS_ITS | Encounter Summary ---
Author Organization [place] [address] Care Team Providers Care Natural Gas Field Processing Supervisor Name Role Phone Lolly Oliveira MD Primary Care Provider [phone] Reason for Referral * Consultation (Routine) - Closed Specialty Diagnoses / Procedures Referred By Contact Referred To Contact Electrophysiology / Cardiology Diagnoses Left bundle branch block Cardiomyopathy, unspecified type AT MINIMUM PT NEEDS CONSIDERATION FOR DEFIBRILLATOR, ALSO CANDIDATE FOR RESYNCHRONIZATION THERAPY HER QRS IS >0.16 Lolly Oliveira MD [address] [place] [address] [facility] [address] [place] [phone] Referral ID Status Reason Start Date Expiration Date V isits Requested Visits Authorized [id number] Closed Consult, Test & Treat PCP Updated and/or Approved 04/30/2022 04/30/2023 6 6 Encounter Details Date Type Department Care Team (Latest Contact Info) Description 04/30/2022 Transcribe Orders eDH Incoming Referrals [phone] Lolly Oliveira MD [address] [place], [place] [id number] Left bundle branch block; Cardiomyopathy, unspecified type [...] EDT Hospital Encounter Non-Invasive [place] [address] Arrived Scheduled Referrals Name Type Priority Associated Diagnoses Orde r Schedule Referral to Cardiology Outpatient Referral Routine Left bundle branch block Cardiomyopathy, Unspecified Type Ordered: 04/30/2022 documented as of this encounter Visit Diagnoses Diagnosis Left bundle branch block Other left bundle branch block Cardiomyopathy, unspecified type documented in this encounter Care Teams Natural Gas Field Processing Supervisor Relationship Specialty Start Date End Date Lolly Oliveira MD [address] [place] [address] PCP - General 07/17/13 documented as of this encounter
--- OUTSIDE RECORDS SUMMARY | 2024-04-19 11:02 | XMS_ITS | Encounter Summary ---
Author Organization [place] [address] Care Team Providers Care Mandrel Puller Name Role Phone Lolly Oliveira MD Primary Care Provider [phone] Encounter Details Date Type Department Care Team (Late st Contact Info) Description 10/09/2021 Telephone Dermatology at [address] [address] Nora Meredith LPN Social History [...] AM EDT Hospital Encounter Non[place] [address] Arrived documented as of this encounter Visit Diagnoses Not on filedocumented in this encounter Care Teams Mandrel Puller Relationship Specialty Start Date End Date Lolly Oliveira MD [address] [place] [address] PCP - General 07/17/13 documented as of this encounter
--- OUTSIDE RECORDS SUMMARY | 2024-04-19 11:03 | XMS_ITS | Encounter Summary ---
Author Organization [facility] [place] [address] Care Team Providers Care Chief Fishery Division Name Role Phone Lolly Oliveira MD Primary Care Provider [phone] Encounter Details Date Type Department Care Team (Late st Contact Info) Description 06/29/2011 [place] [address] Eleno Christian MD Social History Tobacco Use [...] AM EDT Hospital Encounter Non-[place] [address] Arrived documented as of this encounter Procedures [...] filedocumented in this encounter Care Teams Chief Fishery Division Relationship Specialty Start Date End Date Lolly Oliveira MD [address] [place] [address] PCP - General 07/17/13 documented as of this encounter
[2024-04-26 10:18] VITALS: BP 143/61; PULSE 57
[2024-04-28 11:04] VITALS: BP 133/58; PULSE 58
[2024-05-03 12:29] VITALS: BP 110/51; PULSE 76
[2024-05-05 11:25] VITALS: BP 109/58; PULSE 67
== END 2024-05-05 23:59 | disposition home or self-care (01) ==
LOC: CR 11:06
PROVIDERS: PCP Family Medicine; Visit Provider Internal Medicine Cardiovascular Disease
DX: R69 Illness, unspecified (principal)

== ENCOUNTER → 2024-05-10 13:54 | Outpatient (BNVA) | payer MEDICARE, SELFPAY | PROVIDERS: PCP Family Medicine; Visit Provider Internal Medicine Cardiovascular Disease | DX: Z95.810 Presence of automatic (implantable) cardiac defibrillator (principal); I44.7 Left bundle-branch block, unspecified | CPT/HCPCS: 93284 ==

== ENCOUNTER 2024-06-02 11:17 | Outpatient (RCR) | payer SELFPAY ==
[2024-05-10 11:15] VITALS: BP 121/64; PULSE 68; O2SAT 96
[2024-05-12 11:06] VITALS: BP 124/61; PULSE 69
[2024-05-17 11:14] VITALS: BP 122/56; PULSE 69
[2024-05-24 11:14] VITALS: BP 131/63; PULSE 67
[2024-05-26 14:57] VITALS: BP 127/64; PULSE 65
[2024-05-31 11:26] VITALS: BP 133/58; PULSE 69
[2024-06-02 11:29] VITALS: BP 111/55; PULSE 70
== END 2024-06-05 23:59 | disposition home or self-care (01) ==
LOC: CR 11:17
PROVIDERS: PCP Family Medicine; Visit Provider Internal Medicine Cardiovascular Disease
DX: R69 Illness, unspecified (principal)

== ENCOUNTER 2024-06-16 11:01 | Outpatient (CLI) | payer MEDICARE, SELFPAY ==
[2024-06-16 12:35] LABS: Hemoglobin A1C 5.9 % (<5.7)
[2024-06-16 13:05] LABS: ALT 19 U/L (14-59); AST 26 U/L (15-37); Albumin 3.7 g/dL (3.4-5.0); Alkaline Phosphatase 156 U/L (46-116); Anion Gap 10.3 mmol/L (3-11); BUN 17 mg/dL (7-18); Bilirubin, Total 0.5 mg/dL (0.2-1.0); CO2 26.7 mmol/L (21.0-32.0); CREATININE 1.2 mg/dL (0.55-1.02); Calcium 9.5 mg/dL (8.5-10.1); Chloride 104 mmol/L (98-107); Estimated GFR 47.21 (mL/min/1.73m2); Glucose 92 mg/dL (74-106); Potassium 4.3 mmol/L (3.5-5.1); Sodium 141 mmol/L (136-145); TSH (W/Ref FT4) 2.55 uIU/mL (0.36-3.74); Total Protein 7.4 g/dL (6.4-8.2)
== END 2024-06-16 11:02 | disposition home or self-care (01) ==
LOC: LBO 11:01
PROVIDERS: PCP Family Medicine; Visit Provider Family Medicine
DX: Z00.00 Encounter for general adult medical examination without abnormal findings (principal)
CPT/HCPCS: 36415; 80053; 83036; 84443

== ENCOUNTER 2024-07-05 11:09 | Outpatient (RCR) | payer SELFPAY ==
[2024-06-06 00:10] VITALS: BP 111/55; PULSE 70
[2024-06-14 11:32] VITALS: BP 126/62; PULSE 74
[2024-06-16 11:00] VITALS: BP 129/66; PULSE 75
[2024-06-21 11:34] VITALS: BP 124/58; PULSE 81
[2024-06-23 11:05] VITALS: BP 139/63; PULSE 78
[2024-06-28 11:24] VITALS: BP 132/62; PULSE 69
[2024-06-30 11:08] VITALS: BP 129/63; PULSE 63
== END 2024-07-05 23:59 | disposition home or self-care (01) ==
LOC: CR 11:09
PROVIDERS: PCP Family Medicine; Visit Provider Internal Medicine Cardiovascular Disease
DX: R69 Illness, unspecified (principal)

== ENCOUNTER 2024-08-04 12:51 | Outpatient (RCR) | payer SELFPAY ==
[2024-07-06 00:06] VITALS: BP 111/55; PULSE 70
[2024-07-07 11:21] VITALS: BP 126/62; PULSE 79; O2SAT 95
[2024-07-12 11:10] VITALS: BP 133/61
[2024-07-14 11:20] VITALS: BP 142/63; PULSE 72
[2024-07-19 11:34] VITALS: BP 129/60; PULSE 71
[2024-07-21 11:15] VITALS: BP 126/58; PULSE 74
[2024-07-26 11:14] VITALS: BP 163/70; PULSE 68
[2024-08-02 11:23] VITALS: BP 138/62; PULSE 67
[2024-08-04 15:07] VITALS: BP 113/55; PULSE 70
== END 2024-08-05 23:59 | disposition home or self-care (01) ==
LOC: CR 12:51
PROVIDERS: PCP Family Medicine; Visit Provider Internal Medicine Cardiovascular Disease
DX: R69 Illness, unspecified (principal)

== ENCOUNTER → 2024-08-28 09:41 | Outpatient (BNVA) | payer MEDICARE, SELFPAY | PROVIDERS: PCP Family Medicine; Referring Provider Family Medicine; Visit Provider Registered Nurse | DX: I42.9 Cardiomyopathy, unspecified (principal); Z95.810 Presence of automatic (implantable) cardiac defibrillator | CPT/HCPCS: 99214 ==

== ENCOUNTER 2024-09-01 11:00 | Outpatient (RCR) | payer SELFPAY ==
[2024-08-06 00:05] VITALS: BP 111/55; PULSE 70
[2024-08-09 11:29] VITALS: BP 141/67; PULSE 63
[2024-08-11 11:22] VITALS: BP 114/57; PULSE 74
[2024-08-16 11:11] VITALS: BP 123/55; PULSE 69
[2024-08-23 11:56] VITALS: BP 126/64; PULSE 66
[2024-08-25 11:23] VITALS: BP 126/59; PULSE 69
[2024-08-30 11:07] VITALS: BP 140/67; PULSE 70
[2024-09-01 11:17] VITALS: BP 117/57; PULSE 76
== END 2024-09-04 23:59 | disposition home or self-care (01) ==
LOC: CR 11:00
PROVIDERS: PCP Family Medicine; Visit Provider Internal Medicine Cardiovascular Disease
DX: R69 Illness, unspecified (principal)

== ENCOUNTER 2024-10-04 11:00 | Outpatient (RCR) | payer SELFPAY ==
[2024-09-13 15:16] VITALS: BP 110/56; PULSE 74
[2024-09-15 11:30] VITALS: BP 133/59; PULSE 75
[2024-09-20 11:00] VITALS: BP 141/66; PULSE 69
[2024-09-22 11:00] VITALS: BP 137/64; PULSE 68; O2SAT 95
[2024-09-27 11:03] VITALS: BP 106/55; PULSE 73
[2024-09-29 11:44] VITALS: BP 142/65; PULSE 71; O2SAT 95
[2024-10-04 12:58] VITALS: BP 126/62; PULSE 63
== END 2024-10-05 23:59 | disposition home or self-care (01) ==
LOC: CR 11:00
PROVIDERS: PCP Family Medicine; Visit Provider Internal Medicine Cardiovascular Disease
DX: R69 Illness, unspecified (principal)

== ENCOUNTER 2024-10-06 01:38 | Outpatient (CLI) | payer MEDICARE, SELFPAY ==
--- NOTE | 2024-10-06 07:30 | DI.US_ITS ---
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 Ejection fraction is 55%. There are no segmental wall motion abnormalities Normal right ventricular size and function Both atria are normal in size Device lead noted in the right heart The aortic valve is mildly sclerotic without stenosis or regurgitation Mitral annular calcification. Trace to mild mitral regurgitation Estimated right ventricular systolic pressure is 34 mmHg Wall motion Left Ventricle The left ventricle is normal size. The left ventricular systolic function is normal. The left ventricular ejection fraction is within the normal range. Mild concentric left ventricular hypertrophy. No segmental wall motion abnormalities There is no ventricular septal defect visualized. LVEF is 55 %. Right Ventricle The right ventricle is normal size. The right ventricular systolic function is normal. Pacemaker lead is present in the right ventricle. Atria The left atrium size is normal. The right atrium size is normal. The interatrial septum is intact with no evidence for an atrial septal defect. Aortic Valve The aortic valve is mildly sclerotic. Aortic valve is probably trileaflet. There is no aortic valvular stenosis. No aortic regurgitation is present. Mitral Valve Mild mitral annular calcification. No evidence of mitral valve stenosis. Trace to mild mitral regurgitation. Tricuspid Valve The tricuspid valve is normal in structure. There is no tricuspid valve stenosis. Mild tricuspid regurgitation. The RVSP is 34.1 mmHg. Pulmonic Valve The pulmonary valve is normal in structure. There is no pulmonic valvular stenosis. There is no pulmonic valvular regurgitation. Great Vessels The aortic root is normal in size. The ascending aorta is normal in size. Aortic arch is not well visualized. IVC is normal in size and collapses >50% with inspiration. Pericardium There is no pericardial effusion. 2D Dimensions IVSD d PLAX 1.20 cm F: 0.6-1.0 Ao Root d 2.99 cm F: 2.7 - 3.3 LVPW d PLAX 1.17 cm F: 0.6 - 1.0 Ao Asc Diam d 3.31 cm F: 2.3 - 3.1 LVID d PLAX 4.76 cm F: 3.8 - 5.2 LVDs 3.51 cm F: 2.2 - 3.5 LV EF Teichholz 51.3 % FS 26.16 % LV EDV (Teich) 105.2 mL LV ESV (Teich) 51.3 mL Stroke Vol Index (Teich) 25.93 M-Mode TAPSE 2.50 cm (M/F) >1.7 Auto EF LV EDV A4C 122.4 mL LV EDV A2C 86.7 mL LV EDV BP 103.3 mL LV ESV A4C 62.2 mL LV ESV A2C 41.8 mL LV ESV BP 50.9 mL LVEF(%) A4C 49.2 % LVEF(%) A2C 51.8 % LVEF(%) BP 50.7 % LV SV A4C 60.2 ml LV SV A2C 44.9 ml LV SV BP 52.4 ml LV CO A4C 3.6 L/min LV CO A2C 2.7 L/min LV CO BP 3.2 L/min HR A4C 60.10 BPM HR A2C 59.88 BPM LV EDV Index (BP) LA Volume LA Length A4C 4.3 cm LA Length A2C 5.2 cm LA Area A4C s 8.49 cm2 LA Area A2C s 14.31 cm2 LA Vol A4C A-L 14.35 mL LA Vol A2C A-L 33.22 mL LA Vol Biplane A-L 24.2 mL LA Vol/BSA A4C A-L LA Vol/BSA A2C A-L LA Vol/BSA BP A-L 11.6 mL/m2 LA Vol A4C MOD 13.5 mL LA Vol A2C MOD 31.7 mL LA Vol BP MOD 22.9 mL RA Volume RA Area A4C 9.1 cm2 RA ESV A4C (A-L) 17.6mL RA Vol/BSA A4C A-L RA Length A4C 4.0 cm RA ESV A4C (MOD) 16.9mL LV Diastology MV E' medial 0.082 (>0.07 m/s) MV E Vmax 0.75 (0.4-1.3 m/s) MV E/E' MED 9.13 (<14) MV A Vmax 1.10 (0.4-1.3 m/s) MV E' lateral 0.049 (>0.1 m/s) E/A Ratio 0.7 MV E/E' LAT 15.13 (<14) MV E' Average 0.066 m/s MV E/E'(average) 11.38 Aortic Valve AoV Vmax 1.26 m/s LVOT Vmax 1.00 m/s AoV Peak Grad 6.4 mmHg LVOT Peak Grad 4.0 mmHg AoV Area (Vmax) 2.86 cm2 LVOT VTI 0.252 m AoV VTI 0.316 m LVOT Mean Grad 2.3 mmHg AoV Mean Erick. 0.86 m/s LVOT SV 91.09 mL AoV Mean Grad 3.5 mmHg LVOT Diam s 2.10 cm AoV Area (VTI) 2.88 cm2 AV Regurg Peak Gr. 6.39 mmHg Velocity Ratio 0.79 Mitral Valve MV DT 277 (160-240 msec) Pulmonary Valve PV Vmax 0.75 (0.5-1.5 m/s) RVOT Vmax 0.52 m/s PV Peak Grad 2.2 mmHg RVOT Peak Gr. 1.1 mmHg PV Mean Erick 0.57 m/s RVOT VTI 0.127 m PV Mean Grad 1.4 mmHg RVOT Mean Gr. 0.5 mmHg Tricuspid Valve RA Pressure 3.00 mmHg TR Vmax 2.79 m/s TR Peak Grad 31.0 mmHg RVSP (TR) 34.1 mmHg
== END 2024-10-06 01:58 ==
PROVIDERS: PCP Family Medicine; Visit Provider Internal Medicine Cardiovascular Disease
DX: I51.7 Cardiomegaly (principal)
CPT/HCPCS: 93306

== ENCOUNTER 2024-11-03 11:00 | Outpatient (RCR) | payer SELFPAY ==
[2024-10-06 00:13] VITALS: BP 126/62; PULSE 63
[2024-10-06 11:26] VITALS: BP 112/51; PULSE 76
[2024-10-11 12:16] VITALS: BP 133/61; PULSE 67
[2024-10-13 11:00] VITALS: BP 117/56; PULSE 76; O2SAT 94
[2024-10-18 11:19] VITALS: BP 147/58; PULSE 56
[2024-10-20 11:14] VITALS: BP 149/78; PULSE 64
[2024-10-25 11:46] VITALS: BP 133/58; PULSE 76
[2024-10-27 10:45] VITALS: BP 140/67; PULSE 73; O2SAT 95
[2024-10-27 11:20] VITALS: BP 110/58
[2024-11-03 12:01] VITALS: BP 115/55; PULSE 80
== END 2024-11-05 23:59 | disposition home or self-care (01) ==
LOC: CR 11:00
PROVIDERS: PCP Family Medicine; Visit Provider Internal Medicine Cardiovascular Disease
DX: R69 Illness, unspecified (principal)

== ENCOUNTER 2024-12-13 02:15 | Outpatient (CLI) | payer MEDICARE, SELFPAY ==
[2024-06-07 11:18] VITALS: BP 130/62; PULSE 71
[2024-06-09 12:14] VITALS: BP 133/63; PULSE 68
[2024-07-05 11:10] VITALS: BP 126/55; PULSE 72
[2024-07-07 11:14] VITALS: BP 126/62; PULSE 79
[2024-12-13 11:33] VITALS: BP 144/68; PULSE 70
--- NOTE | 2024-12-13 12:35 | DI.MAMMO_ITS ---
Exam(s) MAMMO SCREENING EXAM: MAMMO SCREENING CLINICAL HISTORY: SCREENING MAMMO Z12.31. TECHNIQUE: Bilateral full field digital CC and MLO mammographic images were obtained with 3D tomosynthesis and utilizing computer aided detection (CAD). COMPARISON: Prior mammograms were reviewed. FINDINGS: There has been no significant change in the appearance and distribution of the fibroglandular tissue. There are no new spiculated masses nor malignant appearing microcalcification groups. There is no significant architectural distortion nor skin thickening-retraction. IMPRESSION: No radiographic evidence of malignancy. BI-RADS Category 1 - Negative Breast Density - Category B - There are scattered areas of fibroglandular density. Breast density Category C or D implies that the patient has dense breast tissue. Dense breast tissue can make it harder to find cancer on a mammogram. Dense breast tissue is also associated with an increased risk of breast cancer. This information about the result of the mammogram report was provided to the patient to raise their awareness. Use this report when you speak with the patient about their risks for breast cancer, which includes their family history. At that time, you may recommend additional screening tests (Ultrasound or MRI) as these tests may add significant information. A negative radiographic report should not delay biopsy if a dominant or clinically suspicious mass is present. Up to ten percent of cancers are not identified on mammography. A negative report may reinforce clinical impression. Adenosis and dense breasts may obscure an underlying neoplasm. False positive reports average 6 to 10%. Patient will receive a letter notifying them of these results.
== END 2024-12-13 02:35 ==
LOC: DI 02:16
PROVIDERS: PCP Family Medicine; Visit Provider Family Medicine
DX: Z12.31 Encounter for screening mammogram for malignant neoplasm of breast (principal); R92.323 Mammographic fibroglandular density, bilateral breasts
CPT/HCPCS: 77063; 77067; S9472

== ENCOUNTER 2025-01-26 11:00 | Outpatient (RCR) | payer SELFPAY ==
[2025-01-10 12:12] VITALS: BP 141/66; PULSE 73
[2025-01-12 11:00] VITALS: BP 126/59; PULSE 73
[2025-01-17 15:24] VITALS: BP 135/65; PULSE 72
[2025-01-19 11:00] VITALS: BP 121/64; PULSE 96
[2025-01-24 11:25] VITALS: BP 131/54; PULSE 72
[2025-01-26 11:00] VITALS: BP 134/61; PULSE 70; O2SAT 92
== END 2025-02-04 23:59 | disposition home or self-care (01) ==
LOC: CR 11:00
PROVIDERS: PCP Family Medicine; Visit Provider Internal Medicine Cardiovascular Disease
DX: R69 Illness, unspecified (principal)

== ENCOUNTER 2025-02-07 08:14 | Outpatient (CLI) | payer MEDICARE, SELFPAY ==
--- NOTE | 2025-02-07 08:00 | RT.EKG_ITS ---
APPROVED REPORT Exam: Resting ECG Reason for Exam: CMP, LBBB Patient Location: O HR:69 bpm ECG Measurements Heart Rate 69 AXIS TX 11 P 131 QRSd 127 QRS 142 QT 444 T 50 QTc 476 Conclusion Atrial-sensed ventricular-paced rhythm...ventricular pacing tracks p-waves No further analysis attempted due to paced rhythm
== END 2025-02-07 08:15 | disposition home or self-care (01) ==
LOC: DI.CARD 08:15
PROVIDERS: PCP Family Medicine; Visit Provider Internal Medicine Cardiovascular Disease
DX: Z95.810 Presence of automatic (implantable) cardiac defibrillator (principal); I44.7 Left bundle-branch block, unspecified; I42.9 Cardiomyopathy, unspecified
CPT/HCPCS: 93010

== ENCOUNTER → 2025-02-07 13:20 | Outpatient (BNVA) | payer MEDICARE, SELFPAY | PROVIDERS: PCP Family Medicine; Referring Provider Family Medicine; Visit Provider Internal Medicine Cardiovascular Disease | DX: I42.9 Cardiomyopathy, unspecified (principal); I44.7 Left bundle-branch block, unspecified; Z45.02 Encounter for adjustment and management of automatic implantable cardiac defibrillator | CPT/HCPCS: 93284; 93005 ==

== ENCOUNTER 2025-02-23 11:00 | Outpatient (RCR) | payer SELFPAY ==
[2025-02-07 11:24] VITALS: BP 144/62; PULSE 69
[2025-02-09 11:00] VITALS: BP 125/61; PULSE 79
[2025-02-14 11:16] VITALS: BP 148/67; PULSE 82
[2025-02-16 11:11] VITALS: BP 136/60; PULSE 58
[2025-02-21 12:47] VITALS: BP 133/60; PULSE 65
[2025-02-23 11:00] VITALS: BP 144/63; PULSE 81
== END 2025-03-07 23:59 | disposition home or self-care (01) ==
LOC: CR 11:00
PROVIDERS: PCP Family Medicine; Visit Provider Internal Medicine Cardiovascular Disease
DX: R69 Illness, unspecified (principal)